=== PATIENT | male | born 1960 | race Caucasian/White ===

== ENCOUNTER 2024-07-02 08:15 | Outpatient (CLI) | payer BC, SELFPAY ==
--- OUTSIDE RECORDS SUMMARY | 2024-07-02 08:21 | XMS_ITS | Encounter Summary ---
Author Organization [facility] Address [address] [place] [address]. [place] [address] Care Team Providers Care Tool Keeper Name Role Phone Wilebr Vidales MD Primary Care Provider + Wilber Vidales MD Unavailable [phone] Stephie Mahoney MD Unavailable [phone] Federica Foster RN Unavailable [phone] Unavailable [phone] Stephie Mahoney MD Unavailable [phone] Olga Garcia RN Unavailable [phone] Junior Chavira MD Unavailable [phone] Encounter Details Date Type Department Care Team (Late st Contact Info) Description 06/10/2024 Medical Correspondence [facility] Health Information Management [address] [facility] [address] [place] [address] Scan, Non-Provider Social History Tobacco Use Types Packs/Day Years Used Date Smoking Tobacco: Never Smokeless Tobacco: Never Alcohol Use Standard Drinks/Week Comments Yes 0 (1 standard drink = 0.6 oz pur e alcohol) 2/week Social Connection and Isolat ion Panel [NHANES] Answer Date Recorded In a typical week, how many times do you talk on the phone with family, friends, or neighbors? Twice a week 07/12/2023 How often do you get togethe r with friends or relatives? Once a week 07/12/2023 How often do you attend chur ch or mosque services? More than 4 times per year 07/12/2023 Do you belong to any clubs o r organizations such as moravian groups, unions, fraternal or athletic groups, or school groups? Yes 07/12/2023 How often do you attend meet ings of the clubs or organizations you belong to? More than 4 times per year 07/12/2023 Are you , , di vorced, , never , or living with a partner? 07/12/2023 AUDIT-C Answer Date Recorded Q1: How often do you have a drink containing alc ohol? 2-4 times a month 07/12/2023 Q2: How many drinks containi ng alcohol do you have on a typical day when you are drinking? 1 or 2 07/12/2023 Q3: How often do you have si x or more drinks on one occasion? Less than monthly 07/12/2023 PHQ-2 Answer Date Recorded PHQ-2 Score 0 11/23/2023 [facility] - Occupational Stress Questionnaire Answer Date Recorded Do you feel stress - tense, restless, nervous, or anxious, or unable to sleep at night because your mind is troubled all the time - these days? Patient declined 07/12/2023 Exercise Vital Sign Answer Date Recorde d On average, how many days pe r week do you engage in moderate to strenuous exercise (like a brisk walk)? 3 days 07/12/2023 On average, how many minutes do you engage in exercise at this level? 30 min 07/12/2023 Adolescent Education Answer Date Record ed Getting School Help Needed Not on file 05/14 Food Insecurity Answer Date Recorded Within the past 12 months, d id you worry that your food would run out before you got money to buy more? No 07/12/2023 Within the past 12 months, d id the food you bought just not last and you didn? t have money to get more? No 07/12/2023 Housing Stability Answer Date Recorded Do you have housing? (Housin g is defined as stable permanent housing and does not include staying ouside in a car, in a tent, in an abandoned building, in an overnight longterm, or couch-surfing.) Yes 07/12/2023 Are you worried about losing your housing? No 07/12/2023 Financial Resource Strain Answer Date R ecorded Within the past 12 months, h ave you or your family members you live with been unable to get utilities (heat, electricity) when it was really needed? No 07/12/2023 Transportation Needs Answer Date Record ed Within the past 12 months, h as lack of transportation kept you from medical appointments, getting your medicines, non-medical meetings or appointments, work, or from getting things that you need? No 07/12/2023 Interpersonal Safety Answer Date Record ed Do you feel physically and e motionally safe where you currently live? Yes 07/19/2023 Within the past 12 months, h ave you been hit, slapped, kicked or otherwise physically hurt by someone? No 07/19/2023 Within the past 12 months, h ave you been humiliated or emotionally abused in other ways by your partner or ex-partner? No 07/19/2023 Education Answer Date Recorded What is the highest level of school you have completed or the highest degree you have received? Bachelor's degree (e.g., BA, AB, BS) 03/17/2019 Sex and Gender Information Value Date Recorded Sex Assigned at Male 06/07/2019 7:29 AM CDT 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 CLAY CARMAN Gender Identity Male 03/03/2019 9:24 PM CDT Sexual Orientation Straight 03/03/2019 9: 24 PM CDT documented as of this encounter Plan of Treatment Upcoming Encounters Date Type Department Care Team (Late st Contact Info) Description 07/11/2024 8:00 AM CLAY CARMAN Office Visit [facility] Heart [facility] [address] [place] [phone] Junior Chavira MD [address] [place] [id number] 07/30/2024 7:30 AM CLAY CARMAN Appointment [facility] [address] [place] [phone] Candy Trivedi MD [address] [place] [address] 08/07/2024 1:30 PM CLAY CARMAN Virtual Visit [facility] Diabetes Education [address] [phone] Stephie Mahoney MD [address] [place] [address] [phone] Federica Foster RN [address] [place] [address] [phone] 01/09/2025 8:00 AM CDT Lab [facility] [address] [place] [phone] 01/16/2025 3:30 PM CDT Virtual Visit [facility] End[facility]inology [facility] [address] [phone] Stephie Mahoney MD [address] [place] [address] [phone] 06/05/2025 12:30 PM CDT Office Visit [facility] Endocrinology [address] [phone] tSephie Mahoney MD [address] [place] [address] [phone] documented as of this encounter Visit Diagnoses Not on filedocumented in this encounter Care Teams Tool Keeper Relationship Specialty [place] [address] [place] [address] PCP - General Family Practice 11/21/16 [place] [address] [place] [address] Assigned PCP 01/30/21 Stephie Mahoney MD [address] [place] [address] Endocrinology, Diabetes, and Metabolism 04/22/21 Federica Foster RN [address] [place] [address] Aircraft Maintenance Supervisor Diabetes Education 04/22/[address] [place] [address] Aircraft Maintenance Supervisor Nutrition 04/22/21 Stephie Mahoney MD [address] [place] [address] Assigned Endocrinology Provider 05/08/21 Olga Garcia, RN Specialty Scalder INTERNAL MEDICINE - ENDOCRINOLOGY, DIABETES & METABOLISM 09/29/22 Junior Chavira MD [address] [place], [place] [phone] Cardiovascular Disease 05/29/24 documented as of this encounter
--- OUTSIDE RECORDS SUMMARY | 2024-07-02 08:21 | XMS_ITS | Encounter Summary ---
Author Organization [facility] Address [address] [place] [address]. [place] [address] Care Team Providers Care Outside Sales Consultant Name Role Phone Wilber Vidales MD Primary Care Provider + Wilber Vidales MD Unavailable [phone] Stephie Mahoney MD Unavailable [phone] Federica Foster RN Unavailable [phone] Unavailable [phone] Stephie Mahoney MD Unavailable [phone] Olga Garcia RN Unavailable [phone] Junior Chavira MD Unavailable [phone] Encounter Details Date Type Department Care Team (Latest Contact Info) Description 06/10/2024 Travel Social History Tobacco Use Types Packs/Day Years [...] week 07/12/2023 How often do you attend [facility] or restorationism services? More than 4 times per year 07/12/2023 Do you belong to any clubs o r organizations such as baptism groups, unions, fraternal or athletic groups, or [...] Answer Date Recorded PHQ-2 Score 0 11/23/2023 [facility] - Occupational Stress Questionnaire Answer Date Recorded [...] in an abandoned building, in an overnight usp, or couch-surfing.) Yes 07/12/2023 Are you worried [...] AM CDT 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 RESIDENT CARE ASSISTANT Gender Identity Male 03/03/2019 9:24 PM CDT Sexual Orientation Straight 03/03/2019 9: 24 PM CDT documented as of this encounter Plan of Treatment Upcoming Encounters Date Type Department Care Team (Late st Contact Info) Description 07/11/2024 8:00 AM RESIDENT CARE ASSISTANT Office Visit [facility] [place] [address] [place] [address] [address] [place] [phone] Junior Chavira MD [address] [place] [id number] 07/30/2024 7:30 AM RESIDENT CARE ASSISTANT Appointment [facility] Specialty Care [address] [place] [address] [address] [place] [phone] Candy Trivedi MD [address] [place] [id number] 08/07/2024 1:30 PM RESIDENT CARE ASSISTANT Virtual Visit [facility] Diabetes Education [address] [phone] Stephie Mahoney MD [address] [place] [address] Federica Foster RN [address] [place] [address] 01/09/2025 8:00 AM CDT Lab [facility] [address] [place] [phone] 01/16/2025 3:30 PM CDT Virtual Visit [facility] Endocrinology [facility] [address] [phone] Stephie Mahoney MD [address] [place] [address] 06/05/2025 12:30 PM CDT Office Visit [facility]ology [facility] [address] [phone] Stephie Mahoney MD [address] [place] [address] [phone] documented as of this encounter Visit Diagnoses Not on filedocumented in this encounter Care Teams Outside Sales Consultant Relationship Specialty [place] [address] [place] [place] [address] PCP - General Family Practice 11/21/16 [place] [address] [address] [address] Assigned PCP 01/30/21 Stephie Mahoney MD [address] [phone] Endocrinology, Diabetes, and Metabolism 04/22/21 Federica Foster, RN [address] [place], [place] 540[address] Telecommunications Sales Representative Diabetes Education 04/22/[address] [place] [address] [phone] Telecommunications Sales Representative Nutrition 04/22/21 Stephie Mahoney MD [address] 512255 Assigned Endocrinology Provider 05/08/21 Olga Garcia, RN Specialty Application Integration Engineer INTERNAL MEDICINE - ENDOCRINOLOGY, DIABETES & METABOLISM 09/29/22 Junior Chavira MD [address] [place], [place] [phone] Cardiovascular Disease 05/29/24 documented as of this encounter
--- OUTSIDE RECORDS SUMMARY | 2024-07-02 08:21 | XMS_ITS | Clinical Summary ---
Author Organization [facility] Address [address] [place] [address]. [place] [address] Care Team Providers Care Certified Prosthetist/Orthotist Name Role Phone Didier Maharaj MD Primary Care Provider + Didier Maharaj MD Unavailable [phone] Stephie Mahoney MD Unavailable [phone] Federica Foster RN Unavailable [phone] Unavailable [phone] Stephie Mahoney MD Unavailable [phone] Olga Garcia RN Unavailable [phone] Junior Chavira MD Unavailable [phone] Allergies Active Allergy Reactions Criticality Noted Date Comments Carbamazepine Rash High 02/04/2007 Phenobarbital High 08/22/2001 Phenytoin Other (See Comments),Rash High 10/05/1999 high fever Procarbazine Rash Low 11/21/2016 Sulfa Antibiotics Rash Low 11/21/2016 Valproic Acid Rash High 08/22/2001 Medications Multiple Vitamins-Mineral s (MENS MULTI VITAMIN & MINERAL PO) Take 1 tablet by mouth daily Active Psyllium (METAMUCIL FIBER PO) Take 1 dose. by mouth daily Active melatonin 5 MG tablet Active zinc gluconate 50 MG tablet Take 50 mg by mouth daily 06/01/2 020 Active insulin syringe-needle U-100 (30G X 1/2 0.3 ML) 30G X 1/2 0.3 ML miscellaneousInd ications:Type 1 diabetes mellitus with hyperglycemia (H) Use in the event of pump failure and need to administer manual injection. 10 each 11 Active LAMOTRIGINE PO Take 300 mg by mouth 2 times daily Active vitamin C (ASCORBIC ACID) 1000 MG TABS Take 1 tablet by mouth daily 021 Active cholecalciferol (VITAMIN D3) 125 mcg (5000 units) capsule Take by mouth daily Active acetone urine (KETOSTIX) test stripIndications :Type 1 diabetes mellitus with hyperglycemia (H) Use to check urine ketones in the event of pump failure or unexplained blood glucoses over 250 and not resolving. 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) Take 0.5-1 tablets (100-200 mg) by mouth daily as needed (daytime sleepiness) 90 tablet 1 023 Active apixaban ANTICOAGULANT (ELIQUIS ANTICOAGULANT) 5 MG tabletIndication s:Paroxysmal atrial fibrillation (H) Take 1 tablet (5 mg) by mouth 2 times daily 180 tablet 3 023 Active sildenafil (VIAGRA) 100 MG tabletIndication s:Vasculogenic erectile dysfunction, unspecified vasculogenic erectile dysfunction type Take 1 tablet (100 mg) by mouth daily as needed (30 minutes prior to sexual activity) 12 tablet 11 023 Active atorvastatin (LIPITOR) 40 MG tabletIndication s:Hyperlipidemia LDL goal <100 Take 1 tablet (40 mg) by mouth at bedtime 90 tablet 3 024 Active carvedilol (COREG) 12.5 MG tabletIndication s:Benign essential hypertension Take 1 tablet (12.5 mg) by mouth 2 times daily (with meals) 180 tablet 3 024 Active insulin aspart (NOVOLOG VIAL) 100 UNITS/ML vialIndications: Type 1 diabetes mellitus with hyperglycemia (H) Uses about 80 units per day 80 mL 3 024 Active metFORMIN (GLUCOPHAGE) 500 MG tabletIndication s:Elevated glucose Take 1 tablet (500 mg) by mouth daily (with dinner) 90 tablet 3 Active Additional Information Patient not taking.Reported on 06/16/2024 insulin glargine (LANTUS PEN) 100 UNIT/ML penIndications:T ype 1 diabetes mellitus with hyperglycemia (H) 20 units if pod fails 3 mL Active Continuous Glucose Sensor (DEXCOM G7 SENSOR) MISCIndications: Type 1 diabetes mellitus with hyperglycemia (H) Change every 10 days. 9 each 5 024 Active Insulin Disposable Pump (OMNIPOD 5 G7 PODS, GEN 5,) MISCIndications: Type 1 diabetes mellitus with hyperglycemia (H) 1 pod See Admin Instructions. Change every 3 days 30 each 3 024 Active ezetimibe (ZETIA) 10 MG tabletIndication s:Type 1 diabetes mellitus with hyperglycemia (H) Take 1 tablet (10 mg) by mouth daily. 90 tablet 4 024 Active eszopiclone (LUNESTA) 3 MG tablet ESZOPICLONE 3 MG TABS 023 Active tiZANidine (ZANAFLEX) 2 MG tablet TAKE 1-2 TABLETS BY MOUTH EVERY NIGHT AT BEDTIME NEEDED DIRECTED FOR LOW BACK PAIN* 024 Active lisinopril (ZESTRIL) 30 MG tabletIndication s:Benign essential hypertension Take 1 tablet (30 mg) by mouth daily. 90 tablet 1 024 Active lisinopril (ZESTRIL) 20 MG tabletIndication s:Type 1 diabetes mellitus without complication (H) Take 1 tablet (20 mg) by mouth daily 90 tablet 3 024 2023 Discontinued ezetimibe (ZETIA) 10 MG tabletIndication s:Type 1 diabetes mellitus with hyperglycemia (H) Take 1 tablet (10 mg) by mouth daily. 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 1 09/10/2018 Status post coronary angiogram 06/18/2019 Abnormal findings diagnostic imaging of heart and coronary circulation 06/12/2019 Overview (06/12/2019): Added automatically from request for surgery [id number] ESCALONA (dyspnea on exertion) 04/28/2019 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, without status epilepticus 11/21/2016 JEFERSON (obstructive sleep apnea) 11/21/2016 Bilateral carotid artery stenosis 11/21/2016 Chronic lower back pain 09/03/2014 Resolved Problems Problem Noted Date Diagnosed Date Resolved Date Type 2 diabetes mellitus wit h other circulatory complication, without long-term current use of insulin 07/19/2023 06/16/2024 Infection due to 2018 novel coronavirus 03/10/2022 06/16/2024 Acute pain of right knee 06/14/2020 Aortic valve stenosis 07/04/20192018 Chronic systolic heart failure 04/28/2019 07/01/2020 Overview (04/28/2019): Grade 4/6 03/17/19 Lateral epicondylitis of left elbow 03/28/2019 05/20/2019 Elbow pain, left 03/28/2019 05/20/2019 Nonrheumatic aortic valve stenosis 03/08/2018 07/29/2019 Central sleep apnea 11/21/2016 11/22/19 17 Brain tumor 08/20/1998 07/10/2022 Encounters Date Type Department Care Team Description 06/17/2024 Orders Only [facility] [id number] [place] [phone] Shantel Walker MD 06/16/2024 1:30 PM CDT Office Visit [facility] [id number] [place] [phone] Shantel Walker MD Benign essential hypertension (Primary Dx); Paroxysmal atrial fibrillation (H); 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, 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); Type 1 diabetes mellitus with hyperglycemia (H) 06/16/2024 Travel 06/16/2024 MyC Medical Advice [facility] [address] [place] [phone] Didier Maharaj MD 06/11/2024 Telephone [facility] Endocrinology [address] [phone] Stephie Mahoney MD 06/10/2024 8:15 AM CDT Lab [facility] [address] [place] [phone] Type 1 diabetes mellitus with hyperglycemia (H) 06/10/2024 Medical Correspondence [facility] Information Management [address] [place] [address] [address] [place] [phone] Scan, Non-Provider 06/10/2024 Telephone [facility] Heart [address] [place] [phone] Janee Cota, RN AC hold form (Procedure--right L2 NRI) 06/10/2024 Telephone [facility] Endocrinology [address] [phone] Stephie Mahoney MD 06/10/2024 Travel 06/10/2024 MyC Medical Advice [facility] Endocrinology [address] [phone] Olga Garcia RN 06/09/2024 [facility] [place] [address] [facility] [address] [place] [phone] Janee Cota RN AC hold 06/02/2024 [facility] Endocrinology [address] [phone] Stephie Mahoney MD Medication Question 06/02/2024 MyC Medical Advice [facility] Heart [place] [address] [facility] [address] [place] [phone] Valerie Henderson 05/30/2024 1:00 PM CDT Office Visit [facility] Endocrinology Clinic [address] [phone] Stephie Mahoney MD Type 1 diabetes mellitus with hyperglycemia (H) (Primary Dx) 05/30/2024 Travel 05/29/2024 Telephone [facility] Heart [facility] [address] [facility] [address] [place] [phone] Candy Trivedi MD Appointment (Referral per Shikha) 05/29/2024 MyC Medical Advice [facility] [address] [facility] [address] [place] [phone] Damaris Tripathi 05/27/2024 Telephone [facility] Endocrinology Clinic [address] [phone] Stephie Mahoney MD 05/27/2024 Telephone [facility]ocrinology Clinic [address] [phone] Rebecca Harvey, RN 05/27/2024 Telephone [facility] Endocrinology Clinic [address] [phone] Rebecca Harvey, RN 05/24/2024 11:10 AM CDT - 05/24/2024 1:29 PM CDT Emergency [facility] Emergency Dept [address] [place] [phone] Stanton Milian MD Near syncope; Hyponatremia Discharge Disposition: Home or Self Care 05/24/2024 Travel 05/23/2024 MyC Medical Advice [facility] Endocrinology Clinic [address] [phone] Rebecca Harvey, RN 04/25/2024 MyC Medical Advice [facility] Endocrinology Clinic [address] [phone] Dinah Velazquez 04/25/2024 Telephone [facility]inology [facility] [address] [phone] Stephie Mahoney MD Appointment (Follow-up in May ) 04/25/2024 Telephone [facility] Endocrinology Clinic [address] [phone] Stephie Mahoney MD 04/18/2024 7:30 AM CDT Lab [facility] [address] [place] [address] Hyperlipidemia LDL goal <100; Benign essential hypertension; Type 1 diabetes mellitus with hyperglycemia (H); Type 1 diabetes mellitus without complication (H); Elevated glucose 04/18/2024 Travel from Last 3 Months Immunizations Name Administration Dates Next Due Flu, Unspecified 07/16/1995 Influenza (intradermal) 06/07/2012 Influenza Vaccine 18-64 (Flublok) 07/01/2020 TDAP Vaccine (Adacel) 03/08/2018 Td (Adult), Adsorbed 07/16/1995 Zoster vaccine, live 06/04/2017 Family History Medical History Relation Comments Thyroid Disease Brother Lupus Daughter Bladder Cancer Father Other Cancer Father Bladder cancer Cerebrovascular Disease Maternal Grandmother Hypertension Mother Thyroid Disease Mother Breast Cancer Other Lung Cancer Paternal Grandfather Heart Disease Paternal Grandmother Diabetes Sister 1 Seizure Disorder Sister 1 Thyroid Disease Sister 1 Thyroid Disease Sister 2 Relation Status Comments Brother Daughter Father Alive Maternal Grandfather Maternal Grandmother Mother Alive Other Paternal Grandfather Paternal Grandmother Sister 1 Sister 2 Social History Tobacco Use Types Packs/Day Years Used Date Smoking Tobacco: Never Smokeless Tobacco: Never Tobacco Cessation:Counseling Given: Not Answered Alcohol Use Standard Drinks/Week Comments Yes 0 [...] week 07/12/2023 How often do you attend [facility] or sabianism services? More than 4 times per year 07/12/2023 Do you belong to any clubs o r organizations such as jewish groups, unions, fraternal or athletic groups, or [...] Answer Date Recorded PHQ-2 Score 0 11/23/2023 [facility] - Occupational Stress Questionnaire Answer [...] Answer Date Recorded Do you have housing? (Nori g is defined as stable permanent housing and does not include staying ouside in a car, in a tent, in an abandoned building, in an overnight residential, or couch-surfing.) Yes 07/12/2023 Are you worried [...] motionally safe where you currently live? Yes 06/16/2024 Within the past 12 months, h ave you been hit, slapped, kicked or otherwise physically hurt by someone? No 06/16/2024 Within the past 12 months, h ave you been humiliated or emotionally abused in other ways by your partner or ex-partner? No 06/16/2024 Education Answer Date Recorded What is the highest level of school you have completed or the highest degree you have received? Bachelor's degree (e.g., BA, AB, BS) 03/17/2019 Sex and Gender Information Value Date Recorded Sex Assigned at Male 06/07/2019 7:29 AM CDT 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 [facility] Gender Identity Male 03/03/2019 9:24 PM CDT Sexual Orientation Straight 03/03/2019 9: 24 PM CDT Last Filed Vital Signs Vital Sign Reading Time Taken Comments Blood Pressure 154/96 06/16/2024 1:00 PM CDT Pulse 85 06/16/2024 1:00 PM CDT Temperature 36.7 ??C (98 ??F) 06/16/2024 1:00 PM CDT Respiratory Rate 16 06/16/2024 1:00 PM CDT Oxygen Saturation 98% 06/16/2024 1:00 PM CDT Inhaled Oxygen Concentration - - Weight 83.9 kg (185 lb) 06/16/2024 1:00 PM CDT Height 176.5 cm (5' 9.5) 06/16/2024 1:00 PM CDT Body Mass Index 26.93 06/16/2024 1:00 PM CDT Plan of Treatment Upcoming Encounters Date Type Department Care Team (Late st Contact Info) Description 07/11/2024 8:00 AM [employer] [facility] [facility] Office Visit [facility] Heart [facility] [address] [place] [phone] Junior Chavira MD [address] [place] [phone] 07/30/2024 7:30 AM [facility] Appointment [facility] [address] [place] [phone] Candy Trivedi MD [address] [place] [address] [place] [phone] 08/07/2024 1:30 PM [facility] Virtual Visit [facility] Diabetes Education [address] [phone] Stephie Mahoney MD [address] [place] [address] Federica Foster RN [address] [place], [place] [phone] 01/09/2025 8:00 AM CDT Lab [facility] [address] [place] [phone] 01/16/2025 3:30 PM CDT Virtual Visit [facility] Endocrinology Clinic [address] [phone] Stephie Mahoney MD [address] [place] [address] 06/05/2025 12:30 PM CDT Office Visit [facility] Endocrinology Clinic [address] [phone] Stephie Mahoney MD [address] [place] [phone] Health Maintenance Due Date Last Done Comments CT COLONOGRAPHY 1962 FIT 1962 FLEX SIG 1962 sDNA (Cologuard) 1962 ZOSTER IMMUNIZATION (3 of 3) 03/21/2021 01/24/2021 (Declined), 06/04/2017 RSV VACCINE (1 - Risk 60-74 years 1-dose series) 2022 DIABETIC FOOT EXAM 07/10/2023 07/10/2022, 04/20/2021 COVID-19 Vaccine ( season) 2024 INFLUENZA VACCINE (#1) 2024 , 06/07/2012, 07/16/1995 EYE EXAM 06/18/2024 06/18/2023, 05/21, 05/19/2022, Additional history exists A1C 07/19/2024 04/18/2024, 06/22, 10/13/2022, Additional history exists ANNUAL REVIEW OF HM ORDERS 07/19/2024 07/19/2023, YEARLY PREVENTIVE VISIT 07/19/2024 07/19/20 23, 07/10/2022, 06/27/2021, Additional history exists LIPID 04/18/2025 04/18/2024, 06/22, 07/10/2022, Additional history exists MICROALBUMIN 04/18/2025 04/18/2024, 04/20, 09/01/2021, Additional history exists BMP 06/16/2025 06/16/2024, 05/21, 05/24/2024, Additional history exists DTAP/TDAP/TD IMMUNIZATION (2 - Td or Tdap) 03/08/2028 03/08/2018, 07/16/1995 COLONOSCOPY 05/14/2028 05/14/2023, 04/21, 08/20/2012 COLORECTAL CANCER SCREENING 05/14/2028 ADVANCE CARE PLANNING 07/19/2028 07/19/2023, 018 HEPATITIS C SCREENING Completed 11/21/2016 Pneumococcal Vaccine: Pediatrics (0 to 5 Years) and At-Risk Patients (6 to 64 Years) Addressed 01/24/2021 (Declined) Overridden with th e intention of not completing the topic PHQ-2 (once per calendar year) Completed 11/23/2023, 03/30/2023, 09/29/2022, Additional history exists HIV SCREENING Discontinued HPV IMMUNIZATION Aged Out No longer e ligible based on patient's age to complete this topic MENINGITIS IMMUNIZATION Aged Out No l onger eligible based on patient's age to complete this topic RSV MONOCLONAL ANTIBODY Aged Out No l onger eligible based on patient's age to complete this topic URINE DRUG SCREEN Discontinued Medical Devices Implanted Type Area Railroad Wheels And Axles Inspector Device Identifier Shelf Expiration Date Model / Serial / Lot Lead Artirial Pacing Temporary 53cm [id number] Implanted:Qty : 1 on 07/04/2019 by Ej Haines MD at [facility] Leads [employer] [id number] / / Imp Kit Suture Cor-Knot Mini 4x14mm [id number] Implanted:Qty : 1 on 07/04/2019 by Ej Haines MD at [facility] Metallic Hardware/Anc hor [employer] [id number] / / Valve Aortic Perimount Magna-Ease Bioprosth 23mm [id number] Implanted:Qty : 1 on 07/04/2019 by Ej Haines MD at [facility] Valve N/A: Heart [employer] 01/29/2023 [id number] / [id number] / Device Burgess Endo Cor Knot Quick Load Reload [id number] Implanted:Qty : 1 on 07/04/2019 by Ej Haines MD at [facility] Wire [employer] [id number] / / Procedures Procedure Name Priority Date/Time Associated Diagnosis Comments TSH Routine 06/16/2024 2:16 PM CDT Benign essential hypertension T4 FREE Routine 06/16/2024 2:16 PM CDT Benign essential hypertension N TERMINAL PRO BNP OUTPATIENT Routine 06/16/2024 2:16 PM CDT Benign essential hypertension BASIC METABOLIC PANEL Routine 06/16/2024 2:16 PM CDT Benign essential hypertension EKG 12-LEAD COMPLETE W/READ - CLINICS Routine 06/16/2024 Benign essential hypertension OSMOLALITY Routine 06/10/2024 8:22 AM CDT Type 1 diabetes mellitus with hyperglycemia (H) BASIC METABOLIC PANEL Routine 06/10/2024 8:22 AM CDT Type 1 diabetes mellitus with hyperglycemia (H) CORTISOL Routine 06/10/2024 8:22 AM CDT Type 1 diabetes mellitus with hyperglycemia (H) CBC WITH PLATELETS & DIFFERENTIAL STAT 05/24/2024 11:28 AM CDT EXTRA RED TOP TUBE STAT 05/24/2024 11 :28 AM CDT EXTRA BLUE TOP TUBE STAT 05/24/2024 1 1:28 AM CDT CBC WITH PLATELETS AND DIFFERENTIAL STAT 05/24/2024 11:28 AM CDT EXTRA TUBE STAT 05/24/2024 11:28 AM CDT BASIC METABOLIC PANEL STAT 05/24/2024 11:28 AM CDT GLUCOSE BY METER STAT 05/24/2024 11:2 7 AM CDT EKG 12-LEAD, TRACING ONLY STAT 05/24/2024 11:19 AM CDT ALBUMIN RANDOM URINE QUANTITATIVE Routine 04/18/2024 7:45 AM CDT Hyperlipidemia LDL goal <100 Benign essential hypertension Type 1 diabetes mellitus with hyperglycemia (H) Type 1 diabetes mellitus without complication (H) Elevated glucose TISSUE TRANSGLUTAMINASE MIKE IGA AND IGG Routine 04/18/2024 7:42 AM CDT Hyperlipidemia LDL goal <100 Benign essential hypertension Type 1 diabetes mellitus with hyperglycemia (H) Type 1 diabetes mellitus without complication (H) Elevated glucose HEMOGLOBIN A1C Routine 04/18/2024 7:42 AM CDT Hyperlipidemia LDL goal <100 Benign essential hypertension Type 1 diabetes mellitus with hyperglycemia (H) Type 1 diabetes mellitus without complication (H) Elevated glucose BASIC METABOLIC PANEL Routine 04/18/2024 7:42 AM CDT Hyperlipidemia LDL goal <100 Benign essential hypertension Type 1 diabetes mellitus with hyperglycemia (H) Type 1 diabetes mellitus without complication (H) Elevated glucose LIPID PROFILE Routine 04/18/2024 7:42 AM CDT Hyperlipidemia LDL goal <100 Benign essential hypertension Type 1 diabetes mellitus with hyperglycemia (H) Type 1 diabetes mellitus without complication (H) Elevated glucose TSH Routine 04/18/2024 7:42 AM CDT Hyperlipidemia LDL goal <100 Benign essential hypertension Type 1 diabetes mellitus with hyperglycemia (H) Type 1 diabetes mellitus without complication (H) Elevated glucose 25 HYDROXYVITAMIN D2 & D3 Routine 04/18/2024 7:42 AM CDT Hyperlipidemia LDL goal <100 Benign essential hypertension Type 1 diabetes mellitus with hyperglycemia (H) Type 1 diabetes mellitus without complication (H) Elevated glucose EYE EXAM - HIM SCAN Routine 06/18/2023 COLONOSCOPY Routine 05/14/2023 8:14 AM CDT HEPATITIS C ANTIBODY Routine 11/21/2016 7:44 AM CDT Need for hepatitis C screening test from Last 3 Months or Most Recently Relevant to Health Maintenance Results * TSH (06/16/2024 2:16 PM CDT) Only the most recent of2 resultswithin the time period is included. TSH 2.21 0.30 - 4.20 uIU/mL 06/17/2024 11:53 AM CDT UR LABORATORY Blood BLOOD SPECIMEN / Unknown Venipuncture / Unknown 06/16/2024 2:16 PM CDT 06/16/2024 2:16 PM CDT us Shantel Walker MD LAB - BLOOD ORDERABLES Fi nal Result UR LABORATORY [facility] [address] [place] [address], Room [address] * T4, free (06/16/2024 2:16 PM CDT) Free T4 1.39 0.90 - 1.70 ng/dL 06/17/2024 11:53 AM CDT UR LABORATORY Blood BLOOD SPECIMEN / Unknown Venipuncture / Unknown 06/16/2024 2:16 PM CDT 06/16/2024 2:16 PM CDT us Shantel Walker MD LAB - BLOOD ORDERABLES Fi nal Result Performing Organization Address City/[facility]/ZIP Co de Phone Number UR LABORATORY [facility] [address] [place] [address], [address] * BNP-N terminal pro (06/16/2024 2:16 PM CDT) [facility] N Terminal Pro BNP Outpatient 96 0 - 900 pg/mL 06/17/2024 11:53 AM CDT UR LABORATORY Comment: Reference range shown and results flagged as abnormal are for the outpatient, non acute settings. Establishing a baseline value for each individual patient is useful for follow-up. Suggested inpatient cut points for confirming diagnosis of CHF in an acute setting are: >450 pg/mL (age 18 to less than 50) >900 pg/mL (age 50 to less than 75) >1800 pg/mL (75 yrs and older) An inpatient or emergency department NT-proPBNP <300 pg/mL effectively rules out acute CHF, with 99% negative predictive value. Blood BLOOD SPECIMEN / Unknown Venipuncture / Unknown 06/16/2024 2:16 PM CDT 06/16/2024 2:16 PM CDT us Shantel Walker MD LAB - BLOOD ORDERABLES Fi nal Result UR LABORATORY [facility] Acute Care Lab [address] [facility], [address] [place] [phone], [facility] * (ABNORMAL) Basic metabolic panel (Ca, Cl, CO2, Creat, Gluc, K, Na, BUN) (06/16/2024 2:16 PM CDT) Only the most recent of4 resultswithin the time period is included. Sodium 135 135 - 145 mmol/L 06/17/2024 11:53 AM CDT UR LABORATORY Potassium 4.3 3.4 - 5.3 mmol/L 06/17/2024 11:53 AM CDT UR LAB[facility] Chloride 94(L) 98 - 107 mmol/L 06/17/2024 11:53 AM CDT UR LAB[facility]ORY Carbon Dioxide (CO2) 28 22 - 29 mmol/L 06/17/2024 11:53 AM CDT UR LAB[facility] Anion Gap 13 7 - 15 mmol/L 06/17/2024 11:53 AM CDT UR LAB[facility]ORY Urea Nitrogen 18.0 8.0 - 23.0 mg/dL 06/17/2024 11:53 AM CDT UR LAB[facility]ORY Creatinine 1.02 0.67 - 1.17 mg/dL 06/17/2024 11:53 AM CDT UR LAB[facility]ORY GFR Estimate 84 >60 mL/min/1.7 3m2 06/17/2024 11:53 AM CDT UR LAB[facility]ATORY Comment:eGFR calculated us2020 CKD-EPI equation. Calcium 9.2 8.8 - 10.4 mg/dL 06/17/2024 11:53 AM CDT UR LAB[facility]ATORY Comment:Reference intervals for this test were updated on 03/04/2024 to reflect our healthy population more accurately. There may be differences in the flagging of prior results with similar values performed with this method. Those prior results can be interpreted in the context of the updated reference intervals. Glucose 79 70 - 99 mg/dL 06/17/2024 11:53 AM CDT [facility] Blood BLOOD SPECIMEN / Unknown Venipuncture / Unknown 06/16/2024 2:16 PM CDT 06/16/2024 2:16 PM CDT us Shantel Walker MD LAB - BLOOD ORDERABLES Fi nal Result UR LABORATORY [facility] Acute Care Lab [address] [place] [phone], [facility] * EKG 12-lead complete w/read - Clinics (06/16/2024) us Shantel Walker MD ECG ORDERABLES Final Res ult * Osmolality (06/10/2024 8:22 AM CDT) Osmolality Blood 291 280 - 301 mmol/kg 06/10/2024 3:57 PM CDT [facility] Blood BLOOD SPECIMEN / Unknown Venipuncture / Unknown 06/10/2024 8:22 AM CDT 06/10/2024 8:25 AM CDT Narrative [facility] - 06/10/2024 3:57 PM CDT Greater than 385 mmol/kg relates to stupor in hyperglycemia Greater than 400 mmol/kg can relate to seizures Greater than 420 mmol/kg can be lethal Serum Osmalar Gap: Normal <10 Larger suggest unmeasured substances present in serum (ethanol, methanol, isopropanol, mannitol, ethylene glycol). us Stephie Mahoney MD LAB - BLOOD ORDERABLES Final Result [facility] Core Lab [address], [address] [place] [address], [facility] * Cortisol (06/10/2024 8:22 AM CDT) Cortisol 20.3 ug/dL 06/10/2024 4:16 PM CDT [facility] Comment: 6 months and older: 6 to 10 AM Cortisol Reference Range: ??4-22 ug/dL 4 to 8 PM Cortisol Reference Range: ??3-17 ug/dL Blood BLOOD SPECIMEN / Unknown Venipuncture / Unknown 06/10/2024 8:22 AM CDT 06/10/2024 8:25 AM CDT us Stephie Mahoney MD LAB - BLOOD ORDERABLES Final Result LABORATORY [facility] Core Lab [address], [address] [place] [address] * Extra Red Top Tube (05/24/2024 11:28 AM CDT) Hold Specimen [facility] 05/24/2024 12:46 PM CDT [facility] LAB[facility] Blood VENOUS LINE / Unknown Venipuncture / Unknown 05/24/2024 11:28 AM CDT 05/24/2024 11:32 AM CDT us Stanton Milian MD LAB - BLOOD ORDERABLES Final Res ult LABORATORY [facility] Acute Care Lab [address] Lab (1st floor, no room number) [place] [address] * Extra Blue Top Tube (05/24/2024 11:28 AM CDT) Hold Specimen [facility] 05/24/2024 12:46 PM CDT [facility] LABORATORY Blood VENOUS LINE / Unknown Venipuncture / Unknown 05/24/2024 11:28 AM CDT 05/24/2024 11:32 AM CDT us Stanton Milian MD LAB - BLOOD ORDERABLES Final Res ult [facility] Acute Care Lab [address] Lab (1st floor, no room number) [place] [phone] * (ABNORMAL) CBC with platelets and differential (05/24/2024 11:28 AM CDT) WBC Count 4.3 4.0 - 11.0 10e3/uL 05/24/2024 11:35 AM CDT [facility] LAB[facility]AT[facility] RBC Count 4.55 4.40 - 5.90 10e6/uL 05/24/2024 11:35 AM CDT [facility] LAB[facility]ATORY Hemoglobin 13.9 13.3 - 17.7 g/dL 05/24/2024 11:35 AM CDT [facility] LAB[facility]ORY Hematocrit 39.5(L) 40.0 - 53.0 % 05/24/2024 11:35 AM CDT [facility] LAB[facility] MCV 87 78 - 100 fL 05/24/2024 11:35 AM CDT [facility] LAB[facility] MCH 30.5 26.5 - 33.0 pg 05/24/2024 11:35 AM CDT [facility] LAB[facility]ATORY MCHC 35.2 31.5 - 36.5 g/dL 05/24/2024 11:35 AM CDT [facility] LAB[facility] RDW 11.7 10.0 - 15.0 % 05/24/2024 11:35 AM CDT [facility] Platelet Count 142(L) 150 - 450 10e3/uL 05/24/2024 11:35 AM CDT [facility] % Neutrophils 48 % 05/24/2024 11:35 AM CDT [facility] % Lymphocytes 28 % 05/24/2024 11:35 AM CDT [facility] % Monocytes 10 % 05/24/2024 11:35 AM CDT [facility] % Eosinophils 14 % 05/24/2024 11:35 AM CDT [facility] % Basophils 1 % 05/24/2024 11:35 AM CDT [facility] % Immature Granulocytes 0 % 05/24/2024 11:35 AM CDT [facility] LAB[facility]ATORY NRBCs per 100 WBC 0 <1 /100 024 11:35 AM CDT [facility] LAB[facility] Absolute Neutrophils 2.1 1.6 - 8.3 10e3/uL 05/24/2024 11:35 AM CDT [facility] LAB[facility] Absolute Lymphocytes 1.2 0.8 - 5.3 10e3/uL 05/24/2024 11:35 AM CDT [facility] LAB[facility] Absolute Monocytes 0.4 0.0 - 1.3 10e3/uL 05/24/2024 11:35 AM CDT [facility] LAB[facility] Absolute Eosinophils 0.6 0.0 - 0.7 10e3/uL 05/24/2024 11:35 AM CDT [facility] LAB[facility] Absolute Basophils 0.0 0.0 - 0.2 10e3/uL 05/24/2024 11:35 AM CDT [facility] LAB[facility] Absolute Immature Granulocytes 0.0 <=0.4 10e3/uL 05/24/2024 11:35 AM CDT [facility] LAB[facility]ATORY Absolute NRBCs 0.0 10e3/uL 05/24/2024 11:35 AM CDT [facility] LAB[facility]ATORY Blood BLOOD SPECIMEN / Unknown Venipuncture / Unknown 05/24/2024 11:28 AM CDT 05/24/2024 11:32 AM CDT us Stanton Milian MD LAB - BLOOD ORDERABLES Final Res ult LABORATORY [facility] Lab [address] Lab (1st floor, no room number) [place] [phone] * (ABNORMAL) Glucose by meter (05/24/2024 11:27 AM CDT) GLUCOSE BY METER POCT 159(H) 70 - 99 mg/dL 05/24/2024 11:42 AM CDT LABORATORY POC Blood, venous BLOOD SPECIMEN / Unknown 05/24/2024 11:27 AM CDT 05/24/2024 11:42 AM CDT us Stanton Milian MD LAB - BEAKER POCT Final Result Performing Organization Address [facility]/ZIP Co de Phone Number LABORATORY [facility] Lab [address] Lab (1st floor, no room number) [place] [phone] [place] [address] * EKG 12-lead, tracing only (05/24/2024 11:19 AM CDT) Systolic Blood Pressure mmHg RADIOLOGY RESULTS Diastolic Blood Pressure mmHg RADIOLOGY RESULTS Ventricular Rate 53 BPM RAD IOLOGY RESULTS Atrial Rate 53 [address] Y RESULTS CT Interval 156 ms RADIOLOG Y RESULTS QRS Duration 96 ms RADIOLO GY RESULTS QT 448 ms RADIOLOGY RESULTS QTc 420 ms RADIOLOGY RESULTS P [place] 50 degrees RADIOLOGY RESULTS R AXIS 33 degrees RADIOLOGY RESULTS T [place] 49 degrees RADIOLOGY RESULTS Interpretation ECG Sinus bradycardia Minimal voltage criteria for LVH, may be normal variant ( Sokolow-Meyer ) Borderline ECG When compared with ECG of 10-Mar-2022 06:08, No significant change was found Confirmed by - EMERGENCY ROOM, PHYSICIAN (Mirtha), communications editor ROMY GILMAN ([id number]) on 05/26/2024 6:58:10 AM RADIOLOGY RESULTS 05/24/2024 11:1 9 AM CDT 05/26/2024 6:58 AM CDT us Stanton Milian MD ECG ORDERABLES Edited Result - Final RADIOLOGY RESULTS * Albumin Random Urine Quantitative with Creat Ratio (04/18/2024 7:45 AM CDT) Creatinine Urine mg/dL 114.0 mg/dL 04/18/2024 1:46 PM CDT [facility] Comment:The reference ranges have not been established in urine creatinine. The results should be integrated into the clinical context for interpretation. Albumin Urine mg/L <12.0 mg/L 2023 1:46 PM CDT [facility] Comment:The reference ranges have not been established in urine albumin. The results should be integrated into the clinical context for interpretation. Albumin Urine mg/g Cr 04/18/2024 1:46 PM CDT [facility] Comment: Unable to calculate, urine albumin and/or urine creatinine is outside detectable limits. Microalbuminuria is defined as an albumin:creatinine ratio of 17 to 299 for males and 25 to 299 for females. A ratio of albumin:creatinine of 300 or higher is indicative of overt proteinuria. Due to biologic variability, positive results should be confirmed by a second, first-morning random or 24-hour timed urine specimen. If there is discrepancy, a third specimen is recommended. When 2 out of 3 results are in the microalbuminuria range, this is evidence for incipient nephropathy and warrants increased efforts at glucose control, blood pressure control, and institution of therapy with an tylreuoswul-itsznvzabp-voaowh (JOANA) inhibitor (if the patient can tolerate it). ?? Urine URINE SPECIMEN / Unknown Non-blood Collection / Unknown 04/18/2024 7:45 AM CDT 04/18/2024 7:45 AM CDT us Stephie Mahoney MD LAB - URINE ORDERABLES Final Result [facility] Core Lab [address] [facility] [address] [facility], [address] [place] [address], [facility] * 25 Hydroxyvitamin D2 and D3 (04/18/2024 7:42 AM CDT) 25 OH Vitamin D2 <5 ug/L 04/22/20 3:01 PM CDT SPECIAL DRUG/BGEN 25 OH Vitamin D3 32 ug/L 04/22/20 3:01 PM CDT SPECIAL DR[facility] 25 OH Vit D Total <37 20 - 75 ug/L 04/22/2024 3:01 PM CDT [facility] Comment:Season, race, dietar y intake, and treatment affect the concentration of 51-sowgmum-Ogfalbw D. Values may decrease during winter months and increase during summer months. Values 20-29 ug/L may indicate Vitamin D insufficiency and values <20 ug/L may indicate Vitamin D deficiency. Blood BLOOD SPECIMEN / Unknown Venipuncture / Unknown 04/18/2024 7:42 AM CDT 04/18/2024 7:42 AM CDT Narrative SPECIAL DRUG/BGEN - 04/22/2024 3:01 PM CDT This test was developed and its performance characteristics determined by the [facility], ??Special Chemistry Laboratory. It has not been cleared or approved by the FDA. The laboratory is regulated under CLIA as qualified to perform high-complexity testing. This test is used for clinical purposes. It should not be regarded as investigational or for research. Stephie Mahoney MD LAB - BLOOD ORDERABLES Final Result SPECIAL DRUG/BGEN Special Drug/BGEN [address] [facility], [address] [place] [address], [facility] * Tissue transglutaminase mike IgA and IgG (04/18/2024 7:42 AM CDT) Tissue Transglutaminase Antibody IgA <0.2 <7.0 U/mL 04/23/2024 6:33 AM CDT SPECIALTY CORE/PROT/END O Comment:Negative- The tTG-Ig A assay has limited utility for patients with decreased levels of IgA. Screening for celiac disease should include IgA testing to rule out selective IgA deficiency and to guide selection and interpretation of serological testing. tTG-IgG testing may be positive in celiac disease patients with IgA deficiency. Tissue Transglutaminase Antibody IgG <0.6 <7.0 U/mL 04/23/2024 6:33 AM CDT UM SPECIALTY CORE/PROT/END O Comment:Negative Blood BLOOD SPECIMEN / Unknown Venipuncture / Unknown 04/18/2024 7:42 AM CDT 04/18/2024 7:42 AM CDT us Stephie Mahoney MD LAB - BLOOD ORDERABLES Final Result UM SPECIALTY CORE/PROT/ENDO Specialty Core/Prot/Endo [address] [facility] [address] [facility], [address] * (ABNORMAL) Lipid Profile (04/18/2024 7:42 AM CDT) Cholesterol 207(H) <200 mg/dL 04/18/2024 1:50 PM CDT [facility] Triglycerides 42 <150 mg/dL 04/18/2024 1:50 PM CDT [facility] Direct Measure HDL 62 >=40 mg/dL 04/18/2024 1:50 PM CDT [facility] LDL Cholesterol Calculated 137(H) <=100 mg/dL 04/18/2024 1:50 PM CDT [facility] Non HDL Cholesterol 145(H) <130 mg/dL 04/18/2024 1:50 PM CDT [facility] Patient Fasting > 8hrs? Yes 04/18/2024 1:50 PM CDT [facility] Blood BLOOD SPECIMEN / Unknown Venipuncture / Unknown 04/18/2024 7:42 AM CDT 04/18/2024 7:42 AM CDT Narrative [facility] - 04/18/2024 1:50 PM CDT Cholesterol Desirable: ??<200 mg/dL Triglycerides Normal: ??Less than 150 mg/dL Borderline High: ??150-199 mg/dL High: ??200-499 mg/dL Very High: ??Greater than or equal to 500 mg/dL Direct Measure HDL Female: ??Greater than or equal to 50 mg/dL Male: ??Greater than or equal to 40 mg/dL LDL Cholesterol Desirable: ??<100mg/dL Above Desirable: ??100-129 mg/dL Borderline High: ??130-159 mg/dL High: ??160-189 mg/dL Very High: ??>= 190 mg/dL Non HDL Cholesterol Desirable: ??130 mg/dL Above Desirable: ??130-159 mg/dL Borderline High: ??160-189 mg/dL High: ??190-219 mg/dL Very High: ??Greater than or equal to 220 mg/dL us Stephie Mahoney MD LAB - BLOOD ORDERABLES Final Result [facility] Core Lab [address], [address] [place] [address], [facility] * (ABNORMAL) Hemoglobin A1c (04/18/2024 7:42 AM CDT) Hemoglobin A1C 6.7(H) 0.0 - 5.6 % 04/18/2024 7:47 AM CDT LABORATORY Comment: Normal <5.7% Prediabetes 5.7-6.4% ?? Diabetes 6.5% or higher Note: Adopted from ADA consensus guidelines. Blood BLOOD SPECIMEN / Unknown Venipuncture / Unknown 04/18/2024 7:42 AM CDT 04/18/2024 7:42 AM CDT us Stephie Mahoney MD LAB - BLOOD ORDERABLES Final Result LABORATORY [facility] [place] Lab [address] [facility] (no room number, 1st floor of clinic) [place] [address], [facility] * Eye Exam - HIM Scan (06/18/2023) RETINOPATHY UNKNOWN Narrative Maritza Lopez - 06/18/2023 See encounter dated- 06/16/2024 us Patient Reported OTHER Final Result * COLONOSCOPY (05/14/2023 8:14 AM CDT) Pathologist [facility] COLONOSCOPY [facility] Patient Name: Santy Glez ?Procedure Date: 05/14/2023 8:14 AM ? Date of : 1960 ?Admit Type: Outpatient Age: 62 ? Gender: Male Attending MD: GINA SANDOVAL MD, ?Total Sedation Time: 30 mins Instrument Name: 223 - Adult Colonoscope Procedure: ?Colonoscopy Indications: ?Screening for colorectal malignant neoplasm Providers: ?GINA SANDOVAL MD (Doctor) Referring MD: ? DIDIER MAHARAJ MD (Referring MD) Medicines: ?Midazolam 2 mg IV, Fentanyl 100 micrograms IV Complications: ?No immediate complications. Procedure: ?Pre-Anesthesia Assessment: ?- Prior to the procedure, a History and Physical ?was performed, and patient medications and ?allergies were reviewed. The patient is competent. ?The risks and benefits of the procedure and the ?sedation options and risks were discussed with the ?patient. All questions were answered and informed ?consent was obtained. Patient identification and ?proposed procedure were verified by the physician. ?Mental Status Examination: normal. Prophylactic ?Antibiotics: The patient does not require ?prophylactic antibiotics. Prior Anticoagulants: The ?patient has taken no anticoagulant or antiplatelet ?agents. ASA Grade Assessment: II - A patient with ?mild systemic disease. After reviewing the risks ?and benefits, the patient was deemed in ?satisfactory condition to undergo the procedure. ?The anesthesia plan was to use moderate sedation / ?analgesia (conscious sedation). Immediately prior ?to administration of medications, the patient was ?re-assessed for adequacy to receive sedatives. The ?heart rate, respiratory rate, oxygen saturations, ?blood pressure, adequacy of pulmonary ventilation, ?and response to care were monitored throughout the ?procedure. The physical status of the patient was ?re-assessed after the procedure. ?After obtaining informed consent, the colonoscope ?was passed under direct vision. Throughout the ?procedure, the patient's blood pressure, pulse, and ?oxygen saturations were monitored continuously. The ?Olympus Adult Colonoscope, Model # CF-AC839L, ?[place]ora # 223, SN # [id number] was introduced through ?the anus and advanced to the terminal ileum, with ?identification of the appendiceal orifice and IC ?valve. The colonoscopy was performed without ?difficulty. The patient tolerated the procedure ?well. The quality of the bowel preparation was ?evaluated using the BBPS (yetu Bowel Preparation ?Scale) with scores of: Right Colon = 3, Transverse ?Colon = 3 and Left Colon = 3 (entire mucosa seen ?well with no residual staining, small fragments of ?stool or opaque liquid). The total BBPS score ?equals 9. ? Findings: ? Skin tags were found on perianal exam. ? The terminal ileum appeared normal. ? Two semi-sessile polyps were found in the ascending colon. The polyps ? were 4 to 5 mm in size. These polyps were removed with a jumbo cold ? forceps. Resection and retrieval were complete. Estimated blood loss: ? none. ? Scattered small-mouthed diverticula were found in the sigmoid colon. ? External hemorrhoids were found during retroflexion. The hemorrhoids ? were small. ? Impression: ? - Perianal skin tags found on perianal exam. ?- The examined portion of the ileum was normal. ?- Two 4 to 5 mm polyps in the ascending colon, ?removed with a jumbo cold forceps. Resected and ?retrieved. ?- Diverticulosis in the sigmoid colon. ?- External hemorrhoids. Recommendation: ? - Discharge patient to home. ?- Resume regular diet. ?- Continue present medications. ?- Await pathology results. ?- Repeat colonoscopy in 5-10 years for surveillance ?based on pathology results. ? Procedure Code(s): ? --- Professional --- ? 03818, Colonoscopy, flexible; with biopsy, single or multiple Diagnosis Code(s): ? --- Professional --- ? K64.4, Residual hemorrhoidal skin tags ? Z12.11, Encounter for screening for malignant neoplasm of colon ? D12.2, Benign neoplasm of ascending colon ? K57.30, Diverticulosis of large intestine without perforation or abscess ? without bleeding CPT copyright 2021 [employer]. All rights reserved. The codes documented in this report are preliminary and upon song lyricist review may be revised to meet current compliance requirements. Electronic Signature by Dr. Gina Sandoval GINA SANDOVAL MD 05/14/2023 9:19:23 AM I was physically present for the entire viewing portion of the exam. GINA SANDOVAL MD Number of Addenda: 0 Note Initiated On: 05/14/2023 8:14 AM MRN: ?[id number] Procedure Date: ? 05/14/2023 8:14:09 AM Scope Withdrawal Time: 0 hours 20 minutes 55 seconds Total Procedure Duration: 0 hours 23 minutes 46 seconds Estimated Blood Loss: ? Scope In: 8:46:50 AM Scope Out: 9:10:36 AM RADIOLOGY RESULTS 05/14/2023 8:14 AM CDT Didier Maharaj MD PROCEDURES Final Re sult Performing Organization Address [facility]/ZIP Co de Phone Number RADIOLOGY RESULTS * Hepatitis C antibody (11/21/2016 7:44 AM CDT) Hepatitis C Antibody Nonreactive Assay performance characteristics have not been established for newborns, infants, and children NR [facility] Blood specimen (specimen) 11/21/2016 7:44 AM CDT 11/21/2016 7:49 AM CDT Didier Maharaj MD LAB - BLOOD ORDERABLES F inal Result Performing Organization Address [facility]/ZIP Co de Phone Number [facility] [address] [place] [address] from Last 3 Months or Most Recently Relevant to Health Maintenance Insurance [place] Advance Directives For more information, please contact: [phone] * Full Code (Latest Code Status on File) Date Activated Date Inactivated Comments 03/10/2022 4:31 AM 03/12/2022 5:02 PM All basic an d advanced life-sustaining interventions are performed as appropriate Question Answer Comments Code status determined by: Discussion with patie nt/ legal decision maker * Full Code Date Activated Date Inactivated Comments 07/12/2019 10:58 AM 08/10/2019 1:26 AM Question Answer Comments Code status determined by: Discussion with patie nt/legal decision maker * Full Code Date Activated Date Inactivated Comments 07/04/2019 12:59 PM 07/12/2019 10:58 AM Question Answer Comments Code status determined by: Discussion with patie nt/legal decision maker Care Teams Certified Prosthetist/Orthotist Relationship Specialty [place] [address] [place] [address] PCP - General Family Practice 11/21/16 [place] [address] [place] [address] Assigned PCP 01/30/21 Stephie Mahoney MD [address] [id number] Endocrinology, Diabetes, and Metabolism 04/22/21 Federica Foster RN [address] [place] [address] Surgery Scheduler Diabetes Education 04/22/[address] [place] [address] [id number] Surgery Scheduler Nutrition 04/22/21 Stephie Mahoney MD [address] [address] Assigned Endocrinology Provider 05/08/21 Olga Garcia, RN Specialty News Clerk INTERNAL MEDICINE - ENDOCRINOLOGY, DIABETES & METABOLISM 09/29/22 Junior Chavira MD [address] [place] [address] Cardiovascular Disease 05/29/24
--- OUTSIDE RECORDS SUMMARY | 2024-07-02 08:21 | XMS_ITS | Encounter Summary ---
Author Organization [facility] Address [address] [place] [address]. [place] [address] Care Team Providers Care Damage Appraiser Name Role Phone Wilber Vidales MD Primary Care Provider + Wilber Vidales MD Unavailable [phone] Stephie Mahoney MD Unavailable [phone] Federica Foster RN Unavailable [phone] Unavailable [phone] Stephie Mahoney MD Unavailable [phone] Olga Garcia RN Unavailable [phone] Junior Chavira MD Unavailable [phone] Encounter Details Date Type Department Care Team (Latest Contact Info) Description 06/16/2024 Travel Social History Tobacco Use Types Packs/Day [...] week 07/12/2023 How often do you attend [facility] or hindu services? More than 4 times per year 07/12/2023 Do you belong to any clubs o r organizations such as yazdanism groups, unions, fraternal or athletic groups, or [...] Answer Date Recorded PHQ-2 Score 0 11/23/2023 [facility] - Occupational Stress Questionnaire Answer Date Recorded [...] in an abandoned building, in an overnight long-term, or couch-surfing.) Yes 07/12/2023 Are you worried [...] AM CDT 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 LATEX FASHIONS DESIGNER Gender Identity Male 03/03/2019 9:24 PM CDT Sexual Orientation Straight 03/03/2019 9: 24 PM CDT documented as of this encounter Plan of Treatment Upcoming Encounters Date Type Department Care Team (Late st Contact Info) Description 07/11/2024 8:00 AM LATEX FASHIONS DESIGNER Office Visit [facility] [place] [id number] [place] [address] [address] [place] [phone] Junior Chavira MD [address] [place] [id number] 07/30/2024 7:30 AM LATEX FASHIONS DESIGNER Appointment [facility] Special[facility] [address] [place] [address] [address] [place] [phone] Candy Trivedi MD [address] [place] [id number] 08/07/2024 1:30 PM LATEX FASHIONS DESIGNER Virtual Visit [facility] Diabetes Education [address] [phone] Stephie Mahoney MD [address] [place] [address] Federica Foster RN [address] [place] [address] 01/09/2025 8:00 AM CDT Lab [facility] Laboratory [address] [place] [phone] 01/16/2025 3:30 PM CDT Virtual Visit [facility] Endocrinology Clinic [address] [phone] Stephie Mahoney MD [address] [place] [address] 06/05/2025 12:30 PM CDT Office Visit [facility] Endocrinology Clinic [address] [phone] Stephie Mahoney MD [address] [place] [id number] documented as of this encounter Visit Diagnoses Not on filedocumented in this encounter Care Teams Damage Appraiser Relationship Specialty [place] [address] [place] [address] PCP - General Family Practice 11/21/16 [place] [address] [place] [address] Assigned PCP 01/30/21 Stephie Mahoney MD [address] [address] Endocrinology, Diabetes, and Metabolism 04/22/21 Federica Foster, RN [address] [place], [place] [phone] Daycare Manager Diabetes Education 04/22/[address] [place] [phone] Daycare Manager Nutrition 04/22/21 Stephie Mahoney MD [address] [id number] Assigned Endocrinology Provider 05/08/21 Olga Garcia, RN Specialty Clearance Representative INTERNAL MEDICINE - ENDOCRINOLOGY, DIABETES & METABOLISM 09/29/22 Junior Chavira MD [address] [place], [place] [phone] Cardiovascular Disease 05/29/24 documented as of this encounter
--- OUTSIDE RECORDS SUMMARY | 2024-07-02 08:21 | XMS_ITS | Encounter Summary ---
Author Organization [place] Address [address] [place] [address]. [place] [address] Care Team Providers Care Orthopedic Podiatrist Name Role Phone Wilber Vidales MD Primary Care Provider + Wilber Vidales MD Unavailable [phone] Stephie Mahoney MD Unavailable [phone] Federica Foster RN Unavailable [phone] Unavailable [phone] Stephie Mahoney MD Unavailable [phone] Olga Garcia RN Unavailable [phone] Junior Chavira MD Unavailable [phone] Encounter Details Date Type Department Care Team (Late st Contact Info) Description 06/11/[address] [facility] End[facility]ology [facility] [place] [address] [facility] [address] 3rd [place] [address] Stephie Mahoney MD [address] [facility] [address] [place] [address] Social History Tobacco Use Types Packs/Day Years [...] often do you attend chur ch or restorationism services? More than 4 times per year 07/12/2023 Do you belong to any clubs o r organizations such as quaker groups, unions, fraternal or athletic groups, or [...] Answer Date Recorded PHQ-2 Score 0 11/23/2023 [facility] Occupat ional Health - Occupational Stress [...] Date Recorded Do you have housing? (Nori rodriguez is defined as stable permanent housing and does not include staying ouside in a car, in a tent, in an abandoned building, in an overnight custodial, or couch-surfing.) Yes 07/12/2023 Are you worried [...] AM CDT 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 KILN LABOURER Gender Identity Male 03/03/2019 9:24 PM CDT Sexual Orientation Straight 03/03/2019 9: 24 PM CDT documented as of this encounter Miscellaneous Notes * Telephone Encounter - Stephie Mahoney MD - 06/11/2024 5:02 PM CDT Called pt - labs reveiwed below. - Dear Santy Here are your lab which look pretty good. If you have any questions, please feel free to contact my nurse at [phone] select option #3 for triage nurse or option #1 for scheduling related questions. Regards Stephie Mahoney MD Lab on 06/10/2024 Component Date Value Ref Range Status Cortisol 06/10/2024 20.3 ug/dL Final 6 months and older: 6 to 10 AM Cortisol Reference Range: 4-22 ug/dL 4 to 8 PM Cortisol Reference Range: 3-17 ug/dL Sodium 06/10/2024 135 135 - 145 mmol/L Final Potassium 06/10/2024 4.4 3.4 - 5.3 mmol/L Final Chloride 06/10/2024 95 (L) 98 - 107 mmol/L Final Carbon Dioxide (CO2) 06/10/2024 31 (H) 22 - 29 mmol/L Final Anion Gap 06/10/2024 9 7 - 15 mmol/L Final Urea Nitrogen 06/10/2024 14.4 8.0 - 23.0 mg/dL Final Creatinine 06/10/2024 0.90 0.67 - 1.17 mg/dL Final GFR Estimate 06/10/2024 >90 >60 mL/min/1.73m2 Final eGFR calculated using 2020 CKD-EPI equation. Calcium 06/10/2024 9.1 8.8 - 10.4 mg/dL Final Reference intervals for this test were updated on 03/04/2024 to reflect our healthy population more accurately. There may be differences in the flagging of prior results with similar values performed with this method. Those prior results can be interpreted in the context of the updated reference intervals. Glucose 06/10/2024 216 (H) 70 - 99 mg/dL Final Osmolality Blood 06/10/2024 291 280 - 301 mmol/kg Final documented in this encounter Plan of Treatment Upcoming Encounters Date Type Department Care Team (Late st Contact Info) Description 07/11/2024 8:00 AM KILN LABOURER Office [facility] [address] [facility] [address] [place] [address] Junior Chavira MD [address] [place] [address] 07/30/2024 7:30 AM KILN LABOURER Appointment [facility] [address] [facility] [address] [place] [address] Candy Trivedi MD [address] [facility] [address] [place] [address] 08/07/2024 1:30 PM KILN LABOURER Virtual Visit [facility] Diabetes Education [address] [phone] Stephie Mahoney MD [address] [place] [address] Federica Foster RN [address] [place] [address] 906295 01/09/2025 8:00 AM CDT Lab [facility] [address] [place] [phone] 01/16/2025 3:30 PM CDT Virtual Visit [facility] [address] [phone] Stephie Mahoney MD [address] [place] [address] 074195 06/05/2025 12:30 PM CDT Office Visit [facility] [address] [phone] Stephie Mahoney MD [address] [place] [address] documented as of this encounter Visit Diagnoses Not on filedocumented in this encounter Care Teams Orthopedic Podiatrist Relationship Specialty [place] [address] [place] [address] PCP - General Family Practice 11/21/16 [place] [address] [place] [address] Assigned PCP 01/30/21 Stephie Mahoney MD [address] [place] [address] Endocrinology, Diabetes, and Metabolism 04/22/21 Federica Foster RN [address] [place] [address] Oil Driller Diabetes Education 04/22/[address] [place] [address] Oil Driller Nutrition 04/22/21 Stephie Mahoney MD [address] [place] [address] Assigned Endocrinology Provider 05/08/21 Olga Garcia RN Specialty Composition Siding Worker INTERNAL MEDICINE - ENDOCRINOLOGY, DIABETES & METABOLISM 09/29/22 Junior Chavira MD [address] [place], [place] [address] Cardiovascular Disease 05/29/24 documented as of this encounter
--- OUTSIDE RECORDS SUMMARY | 2024-07-02 08:21 | XMS_ITS | Encounter Summary ---
Author Organization [place] Address [address] [place] [address]. [place] [address] Care Team Providers Care Acquisition Marketing Manager Name Role Phone Wilber Vidales MD Primary Care Provider + Wilber Vidales MD Unavailable [phone] Stephie Mahoney MD Unavailable [phone] Federica Foster RN Unavailable [phone] Unavailable [phone] Stephie Mahoney MD Unavailable [phone] Olga Garcia RN Unavailable [phone] Junior Chavira MD Unavailable [phone] Encounter Details Date Type Department Care Team (Late st Contact Info) Description 06/10/2024 Telephone [facility] Endocrinology Clinic [place] [address] [facility] [address] 3rd [place] [address] Stephie Mahoney MD [address] [facility] [address] [place] [address] Social History Tobacco Use Types [...] often do you attend chur ch or anabaptist services? More than 4 times per year 07/12/2023 Do you belong to any clubs o r organizations such as sabianist groups, unions, fraternal or athletic groups, or [...] Answer Date Recorded PHQ-2 Score 0 11/23/2023 [facility] Occupat ional Health - Occupational Stress [...] in an abandoned building, in an overnight chcf, or couch-surfing.) Yes 07/12/2023 Are you worried [...] AM CDT 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 HAND CARVER Gender Identity Male 03/03/2019 9:24 PM CDT Sexual Orientation Straight 03/03/2019 9: 24 PM CDT documented as of this encounter Miscellaneous Notes * Telephone Encounter - Stephie Mahoney MD - 06/10/2024 2:42 PM CDT Pt tolerating zetia- script updated documented in this encounter Plan of Treatment Upcoming Encounters Date Type Department Care Team (Late st Contact Info) Description 07/11/2024 8:00 AM HAND CARVER Office Visit [facility] [address] [place] [phone] Junior Chavira MD [address] [place], [place] [address] 07/30/2024 7:30 AM HAND CARVER Appointment [facility] [address] [place] [phone] Candy Trivedi MD [address] [place] [address] 08/07/2024 1:30 PM HAND CARVER Virtual Visit [facility] Diabetes Education [address] [phone] Stephie Mahoney MD [address] [place] [address] 792165 Federica Foster RN 420 [place], [place] 9[address]385 01/09/2025 8:00 AM CDT Lab [facility] Laboratory [address] [place] [phone] 01/16/2025 3:30 PM CDT Virtual Visit [facility] Endocrinology Clinic [address] [phone] Stephie Mahoney MD [address] [place] [address] 7101[address] 06/05/2025 12:30 PM CDT Office Visit [facility] Endocrinology [address] [phone] Stephie Mahoney MD [address] [place] [address] [phone] documented as of this encounter Visit Diagnoses Diagnosis Type 1 diabetes mellitus with hyperglycemia (H) Type I (juvenile type) diabetes mellitus without mention of complication, not stated as uncontrolled documented in this encounter Care Teams Acquisition Marketing Manager Relationship Specialty [place] [address] [address] [facility] [address] PCP - General Family Practice 11/21/16 [place] [address] [address] [address] Assigned PCP 01/30/21 Stephie Mahoney MD [address] [place] [address] Endocrinology, Diabetes, and Metabolism 04/22/21 Federica Foster, RN [address] [place], [place] [phone] Machine Farmworker Diabetes Education 04/22/[address] [place] [address] Machine Farmworker Nutrition 04/22/21 Stephie Mahoney MD [address] [place] [address] Assigned Endocrinology Provider 05/08/21 Olga Garcia, RN Specialty Patient Support Assistant INTERNAL MEDICINE - ENDOCRINOLOGY, DIABETES & METABOLISM 09/29/22 Junior Chavira MD [address] [facility] [address] [place] [address] Cardiovascular Disease 05/29/24 documented as of this encounter
--- OUTSIDE RECORDS SUMMARY | 2024-07-02 08:21 | XMS_ITS | Encounter Summary ---
Author Organization [place] Address [address] [place] [address]. [place] [address] Care Team Providers Care Rheumatologist Name Role Phone Wilber Vidales MD Primary Care Provider + Wilber Vidales MD Unavailable [phone] Stephie Mahoney MD Unavailable [phone] Federica Foster RN Unavailable [phone] Unavailable [phone] Stephie Mahoney MD Unavailable [phone] Olga Garcia RN Unavailable [phone] Junior Chavira MD Unavailable [phone] Reason for Visit * Reason Comments Hypertension Encounter Details Date Type Department Care Team (Late st Contact Info) Description 06/16/2024 1:30 PM CDT Office Visit [facility] [address] [place] [address] [place] [id number] [place] [address] Benign essential hypertension (Primary Dx); Paroxysmal atrial fibrillation (H); 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 More than 4 times per year 07/12/2023 Do you belong to any clubs o r organizations such as advent groups, unions, fraternal or athletic groups, or [...] Answer Date Recorded PHQ-2 Score 0 11/23/2023 [facility] - Occupational Stress Questionnaire Answer Date [...] in an abandoned building, in an overnight fci, or couch-surfing.) Yes 07/12/2023 Are you worried [...] AM CDT 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 HEALTH PLAN SPECIALIST Gender Identity Male 03/03/2019 9:24 PM CDT Sexual Orientation Straight 03/03/2019 9: 24 PM CDT documented as of this encounter Last Filed Vital Signs Vital Sign Reading [...] Mass Index 26.93 06/16/2024 1:00 PM CDT documented in this encounter Progress Notes * Shantel Walker MD - 06/16/2024 1:30 PM CDT Assessment & Plan Benign essential hypertension - recently uncontrolled, reports work stress over the past month. No other changes. No chest pain/pressure, dyspnea. Using his CPAP nightly, sleeping well. Reports he doesn't monitor his sodium. Episode earlier this month where he had hypotension, thought to be relatedto accidental overmedication. EKG today similar to previous. Will run labs as below. If all normal,encouraged higher dose of lisinopril - script sent. He should follow his BP closely with dose increase to ensure no recurrent hypotension. - EKG 12-lead complete w/read - Clinics - lisinopril (ZESTRIL) 30 MG tablet; Take 1 tablet (30 mg) by mouth daily. 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 BMI Estimated body mass index is 26.93 kg/m?? as calculated from the following: Height as of this encounter: 1.765 m (5' 9.5). Weight as of this encounter: 83.9 kg (185 lb). Tataina Madera is a 63 year old, presenting for the following health issues: Hypertension 06/16/2024 1:08 PM Additional Questions Roomed by Vane Trevizo Via the Health Maintenance questionnaire, the patient has reported the following services have beencompleted -Eye Exam: gavin platt 2023-06-18, this information has been sent to the abstraction team. History of Present Illness Hypertension: He presents for follow up of hypertension. He does check blood pressure regularly outside of the clinic. Outside blood pressures have been over 140/90. He does not follow a low salt diet. He eats 2-3 servings of fruits and vegetables daily.He consumes 0 sweetened beverage(s) daily.He exercises with enough effort to increase his heart rate 30 to 60 minutes per day. He exercises with enough effort to increase his heart rate 4 days per week. He is taking medications regularly. Review of Systems Constitutional, neuro, ENT, endocrine, pulmonary, cardiac, gastrointestinal, genitourinary, musculoskeletal, integument and psychiatric systems are negative, except as otherwise noted. Objective BP (!) 154/96 (BP Location: Right arm, Patient Position: Sitting, Cuff Size: Adult Regular) Pulse85 Temp 98 ??F (36.7 ??C) Resp 16 Ht 1.765 m (5' 9.5) Wt 83.9 kg (185 lb) SpO2 98% BMI26.93 kg/m?? Body mass index is 26.93 kg/m??. Physical Exam GENERAL: alert and no distress NECK: no adenopathy, no asymmetry, masses, or scars RESP: lungs clear to auscultation - no rales, rhonchi or wheezes CV: regular rate and rhythm, normal S1 S2, no S3 or S4, no murmur, click or rub, no peripheral edema PSYCH: mentation appears normal, affect normal/bright EKG - Reviewed and interpreted by me appears normal, NSR, normal axis, normal intervals, no acute ST/T changes c/w ischemia, no LVH by voltage criteria, unchanged from previous tracings Signed Electronically by: Shantel Walker MD documented in this encounter Plan of Treatment Upcoming Encounters Date Type Department Care Team (Late st Contact Info) Description 07/11/2024 8:00 AM HEALTH PLAN SPECIALIST Office Visit [facility] [address] [place] [address] [address] [place] [phone] Junior Chavira MD [address] [place] [id number] 07/30/2024 7:30 AM HEALTH PLAN SPECIALIST Appointment [facility] Specialty Care [address] [place] [phone] Candy Trivedi MD [address] [place] [address] 08/07/2024 1:30 PM HEALTH PLAN SPECIALIST Virtual Visit [facility] Diabetes Education [address] [phone] Stephie Mahoney MD [address] [place] [address] 220245 Federica Foster RN 420 [place], [place] 9[address] 01/09/2025 8:[address] [facility] [address] [place] [phone] 01/16/2025 3:30 PM CDT Virtual Visit [facility] Endocrinology Clinic [address] [phone] Stephie Mahoney MD [address] [place] [address] 400315 06/05/2025 12:30 PM CDT Office Visit [facility] Endocrinology Clinic [address] [phone] Stephie Mahoney MD [address] [place] [address] [phone] documented as of this encounter Procedures Procedure Name Priority Date/Time Associated Diagnosis Comments TSH Routine 06/16/2024 2:16 PM CDT Benign essential hypertension T4 FREE Routine 06/16/2024 2:16 PM CDT Benign essential hypertension N TERMINAL PRO BNP OUTPATIENT Routine 06/16/2024 2:16 PM CDT Benign essential hypertension BASIC METABOLIC PANEL Routine 06/16/2024 2:16 PM CDT Benign essential hypertension EKG 12-LEAD COMPLETE W/READ - CLINICS Routine 06/16/2024 Benign essential hypertension documented in this encounter Results * TSH (06/16/2024 2:16 PM CDT) TSH 2.21 0.30 - 4.20 uIU/mL 06/17/2024 11:53 AM CDT UR LABORATORY Blood BLOOD SPECIMEN / Unknown Venipuncture / Unknown 06/16/2024 2:16 PM CDT 06/16/2024 2:16 PM CDT us Shantel Walker MD LAB - BLOOD ORDERABLES Fi nal Result UR LABORATORY [facility] Acute Care Lab [address] [place] [address], Room [address] [place] [phone] * T4, free (06/16/2024 2:16 PM CDT) Free T4 1.39 0.90 - 1.70 ng/dL 06/17/2024 11:53 AM CDT UR LABORATORY Blood BLOOD SPECIMEN / Unknown Venipuncture / Unknown 06/16/2024 2:16 PM CDT 06/16/2024 2:16 PM CDT us Shantel Walker MD LAB - BLOOD ORDERABLES Fi nal Result UR LABORATORY [facility] Acute Care Lab [facility], Room [address] [phone] * BNP-N terminal pro (06/16/2024 2:16 PM CDT) N Terminal Pro BNP Outpatient [phone] [...] Shantel Walker MD LAB - BLOOD ORDERABLES nal Result UR LABORATORY [facility] Acute Care Lab [address] [place] [address], Room [address] [phone] * (ABNORMAL) Basic metabolic panel (Ca, Cl, CO2, Creat, Gluc, K, Na, BUN) (06/16/2024 2:16 PM CDT) Sodium 135 135 - 145 mmol/L 06/17/2024 [...] 11:53 AM CDT UR LABORATORY Comment:eGFR calculated usin 2020 CKD-EPI equation. Calcium 9.2 8.8 - 10.4 [...] BLOOD ORDERABLES Fi nal Result UR LABORATORY [facility] Acute Care Lab [address] [facility], Room [address] [place] [address], 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) Type 1 diabetes mellitus with hyperglycemia (H) Type I (juvenile type) diabetes mellitus without mention of complication, not stated as uncontrolled documented in this encounter Care Teams Rheumatologist Relationship Specialty [place] [address] [place] [address] PCP - General Family Practice 11/21/16 [place] [address] [place] [address] Assigned PCP 01/30/21 Stephie Mahoney MD [address] 640795 Endocrinology, Diabetes, and Metabolism 04/22/21 Federica Foster, RN 420 [place], [place] 430815 Aviation Engineer Diabetes Education 04/22/[address] [facility] [address] 765[address] Aviation Engineer Nutrition 04/22/21 Stephie Mahoney MD [address] 254115 Assigned Endocrinology Provider 05/08/21 Olga Garcia, RN Specialty Balloon Dipper INTERNAL MEDICINE - ENDOCRINOLOGY, DIABETES & METABOLISM 09/29/22 Junior Chavira MD [address] [place] [address] Cardiovascular Disease 05/29/24 documented as of this encounter
--- OUTSIDE RECORDS SUMMARY | 2024-07-02 08:21 | XMS_ITS | Encounter Summary ---
Author Organization [place] Address [address] [place] [address]. [place] [address] Care Team Providers Care Credit Reporting Clerk Name Role Phone Wilber Vidales MD Primary Care Provider + Wilber Vidales MD Unavailable [phone] Stephie Mahoney MD Unavailable [phone] Federica Foster RN Unavailable [phone] Unavailable [phone] Stephie Mahoney MD Unavailable [phone] Olga Garcia RN Unavailable [phone] Junior Chavira MD Unavailable [phone] Reason for Visit * Reason Onset Date Comments AC hold form 06/10/2024 Procedure--right L2 NRI Encounter Details Date Type Department Care Team (Late st Contact Info) Description 06/10/2024 [facility] Heart [address] [place] [address] Janee Cota, RN AC hold form (Procedure--right L2 NRI) Social History Tobacco Use Types Packs/Day Years [...] often do you attend chur ch or confucianist services? 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 Procedure right L2 NRI. Sent copy to [facility] to scan. Copy in EP filing cabinet. MENDEL Brenner documented in this encounter Plan of Treatment Upcoming Encounters Date Type Department Care Team (Late st Contact Info) Description 07/11/2024 8:00 AM AIR SHOVEL OPERATOR Office Visit [facility] Heart [facility] [address] [facility] [address] [place] [phone] Junior Chavira MD [address] [place], [place] [phone] 07/30/2024 7:30 AM AIR SHOVEL OPERATOR Appointment [facility] Specialty Care [address] [facility] [address] [place] [phone] Candy Trivedi MD [address] [place] [address] 08/07/2024 1:30 PM AIR SHOVEL OPERATOR Virtual Visit [facility] Diabetes Education [address] [phone] Stephie Mahoney MD [address] [place] [address] [phone] Federica Foster, RN 420 [place] [address] 01/09/2025 8:00 AM CDT Lab [facility] Laboratory [address] [place] [phone] 01/16/2025 3:30 PM CDT Virtual Visit [facility] Endocrinology [address] [phone] Stephie Mahoney MD [address] [place] [address] 842605 06/05/2025 12:30 PM CDT Office Visit [facility] Endocrinology [address] [phone] Stephie Mahoney MD [address] 014075 documented as of this encounter Visit Diagnoses Not on filedocumented in this encounter Care Teams Credit Reporting Clerk Relationship Specialty [place] [address] [address] [phone] PCP - General Family Practice 11/21/16 [place] [address] [address] [id number] Assigned PCP 01/30/21 Stephie Mahoney MD [address] [place] [address] 314385 Endocrinology, Diabetes, and Metabolism 04/22/21 Federica Foster RN [address] [place] [address] [phone] Oracle Applications Analyst Diabetes Education 04/22/[address] [place] [address] [phone] Oracle Applications Analyst Nutrition 04/22/21 Stephie Mahoney MD [address] [place] [address] [phone] Assigned Endocrinology Provider 05/08/21 Olga Garcia, RN Specialty Spar Machine Operator INTERNAL MEDICINE - ENDOCRINOLOGY, DIABETES & METABOLISM 09/29/22 Junior Chavira MD [address] [place] [address] Cardiovascular Disease 05/29/24 documented as of this encounter
--- OUTSIDE RECORDS SUMMARY | 2024-07-02 08:21 | XMS_ITS | Referral Summary ---
Author Organization [place] Address [address] [place] [address]. [place] [address] Care Team Providers Care Commonwealth Attorney Name Role Phone Didier Maharaj MD Primary Care Provider + Didier Maharaj MD Unavailable [phone] Stephie Mahoney MD Unavailable [phone] Federica Foster RN Unavailable [phone] Unavailable [phone] Stephie Mahoney MD Unavailable [phone] Olga Garcia RN Unavailable [phone] Junior Chavira MD Unavailable [phone] Encounters Date Type Department Care Team Description 06/17/2024 Orders Only [facility] [address] [place] [phone] Shantel Walker MD 06/16/2024 Travel 06/16/2024 1:30 PM CDT Office Visit [facility] [address] [place] [phone] Shantel Walker MD Benign essential hypertension (Primary Dx); Paroxysmal atrial fibrillation (H); 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, 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); Type 1 diabetes mellitus with hyperglycemia (H) 06/16/2024 MyC Medical Advice [facility] [address] [place] [phone] Didier Maharaj MD 06/11/2024 Telephone [facility] Endocrinology [facility] [address] [place] [phone] Stephie Mahoney MD 06/10/2024 Medical Correspondence [facility] Information Management [address] [facility] [address] [place] [address] Scan, Non-Provider 06/10/[address] [phone] Janee Cota RN AC hold form (Procedure--right L2 NRI) 06/10/2024 Telephone [facility] Endocrinology [address] [phone] Stephie Mahoney MD 06/10/2024 Travel 06/10/2024 MyC Medical Advice [facility] Endocrinology [address] [phone] Olga Garcia RN 06/10/2024 8:[address] [facility] [address] [place] [phone] Type 1 diabetes mellitus with hyperglycemia (H) 06/09/2024 [facility] [place] [id number] [address] [place] [phone] Janee Cota RN AC hold 06/02/2024 [facility] Endocrinology [address] [phone] Stephie Mahoney MD Medication Question 06/02/2024 MyC Medical Advice [place] [id number] [address] [place] [phone] Valerie [place] 05/30/2024 Travel 05/30/2024 1:00 PM CDT Office Visit [facility] Endocrinology Clinic [address] [phone] Stephie Mahoney MD Type 1 diabetes mellitus with hyperglycemia (H) (Primary Dx) 05/29/2024 Telephone [facility] Heart [facility] [address] [facility] [address] [place] [phone] Candy Trivedi MD Appointment (Referral per Shikha) 05/29/2024 MyC Medical Advice [facility] Heart [facility] [address] [facility] [address] [place] [phone] Damaris Tripathi 05/27/2024 Telephone [facility]ology Clinic [address] [phone] Stephie Mahoney MD 05/27/2024 Telephone [facility] [address] [phone] Rebecca Harvey, RN 05/27/2024 Telephone [facility] [address] [phone] Rebecca Harvey, RN 05/24/2024 Travel 05/24/2024 11:10 AM CDT - 05/24/2024 1:29 PM CDT Emergency [facility] Emergency Dept [address] [place] [address] Stanton Milian MD Near syncope; Hyponatremia Discharge Disposition: Home or Self Care 05/23/2024 MyC Medical Advice [facility] End[facility]inology Clinic [address] [phone] Rebecca Harvey, RN 04/25/2024 MyC Medical Advice [facility] [address] [phone] Dinah Velazquez 04/25/2024 Telephone [facility] [address] [phone] Stephie Mahoney MD Appointment (Follow-up in May ) 04/25/2024 Telephone [facility] [address] [phone] Stephie Mahoney MD 04/18/2024 Travel 04/18/2024 7:[address] [facility] [address] [place] [phone] Hyperlipidemia LDL goal <100; Benign essential hypertension; Type 1 diabetes mellitus with hyperglycemia (H); Type 1 diabetes mellitus without complication (H); Elevated glucose from Last 3 Months Allergies Active Allergy Reactions Criticality Noted Date [...] tablet Take 50 mg by mouth daily Active insulin syringe-needle U-100 (30G X 1/2 0.3 ML) 30G X 1/2 0.3 ML miscellaneousInd ications:Type 1 diabetes mellitus with hyperglycemia (H) Use in the event of pump failure and need to administer manual injection. 10 each Active LAMOTRIGINE PO Take 300 mg by mouth 2 times daily Active vitamin C (ASCORBIC ACID) 1000 MG TABS Take 1 tablet by mouth daily Active cholecalciferol (VITAMIN D3) 125 mcg (5000 [...] mouth daily (with dinner) 90 tablet 3 024 Active Additional Information Patient not taking.Reported on 06/16/2024 insulin glargine (LANTUS PEN) 100 UNIT/ML penIndications:T ype 1 diabetes mellitus with hyperglycemia (H) 20 units if pod fails 3 mL 024 Active Continuous Glucose Sensor (DEXCOM G7 SENSOR) [...] Atrial fibrillation 07/14/2019 Aortic valve replaced 07/14/2019 FDC current use of anticoagulant therapy 1 09/10/2018 Status post coronary angiogram 06/18/2019 Abnormal findings diagnostic imaging of heart and coronary circulation 06/12/2019 Overview (06/12/2019): Added automatically from request for surgery [id number] ESCALONA (dyspnea on exertion) 04/28/2019 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, without status epilepticus 11/21/2016 JEFERSON (obstructive sleep apnea) 11/21/2016 Bilateral carotid artery stenosis 11/21/2016 Chronic lower back pain 09/03/2014 Resolved Problems Problem Noted Date Diagnosed Date Resolved Date Type 2 diabetes mellitus wit h other circulatory complication, without long-term current use of insulin 07/19/2023 06/16/2024 Infection due to 2019 novel coronavirus 03/10/2022 06/16/2024 Acute pain of right knee 06/14/2020 Aortic valve stenosis 07/04/20192018 Chronic systolic heart failure 04/28/2019 07/01/2020 Overview (04/28/2019): Grade 4/6 03/17/19 Lateral epicondylitis of left elbow 03/28/2019 05/20/2019 Elbow pain, left 03/28/2019 05/20/2019 Nonrheumatic aortic valve stenosis 03/08/2018 07/29/2019 Central sleep apnea 11/21/2016 11/22/19 17 Brain tumor 08/20/1998 07/10/2022 Immunizations Name Administration Dates Next Due Flu, Unspecified 07/16/1995 Influenza (intradermal) 06/07/2012 Influenza Vaccine 18-64 (Flublok) 07/01/2020 TDAP Vaccine (Adacel) 03/08/2018 Td (Adult), Adsorbed 07/16/1995 Zoster vaccine, live 06/04/2017 Social History Tobacco Use Types Packs/Day Years [...] often do you attend chur ch or samaritan services? More than 4 times per year 07/12/2023 Do you belong to any clubs o r organizations such as christian groups, unions, fraternal or athletic groups, or [...] Answer Date Recorded PHQ-2 Score 0 11/23/2023 [facility] - [...] AM CDT 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 CORRECTIONAL FOOD SERVICE SUPERVISOR Gender Identity Male 03/03/2019 9:24 PM CDT [...] st Contact Info) Description 07/11/2024 8:00 AM CORRECTIONAL FOOD SERVICE SUPERVISOR Office Visit [facility] Heart [facility] [address] [place] [address] [address] [place] [phone] Junior Chavira MD [address] [place] [address] 07/30/2024 7:30 AM CORRECTIONAL FOOD SERVICE SUPERVISOR Appointment [facility] [address] [place] [phone] Candy Trivedi MD [address] [place] [address] 08/07/2024 1:30 PM CORRECTIONAL FOOD SERVICE SUPERVISOR Virtual Visit [facility] Diabetes Education [address] [phone] Stephie Mahoney MD [address] [place] [address] [phone] Federica Foster RN [address] [place] [address] [phone] 01/09/2025 8:[address] [facility] [address] [place] [phone] 01/16/2025 3:30 PM CDT Virtual Visit [facility] Endocrinology Clinic [address] [phone] Stephie Mahoney MD [address] [place] [address] [phone] 06/05/2025 12:30 PM CDT Office Visit [facility] Endocrinology Clinic [address] [phone] Stephie Mahoney MD [address] [place] [address] [phone] Medical Devices Implanted Type Area Wheel Press Clerk Device Identifier Shelf Expiration Date Model / Serial / Lot Lead Artirial Pacing Temporary 53cm [id number] Implanted:Qty : 1 on 07/04/2019 by Ej Haines MD at [facility] Leads [employer] Cardiac Pa [id number] / / Imp Kit Suture Cor-Knot Mini 4x14mm [id number] Implanted:Qty : 1 on 07/04/2019 by Ej Haines MD at [facility] Metallic Hardware/Anc hor [employer] [id number] / / Valve Aortic Perimount Magna-Ease Bioprosth 23mm [id number] Implanted:Qty : 1 on 07/04/2019 by Ej Haines MD at [facility] Valve N/A: Heart [employer] 01/29/2023 [id number] / [id number] / Device Burgess Endo Cor Knot Quick Load Reload [id number] Implanted:Qty : 1 on 07/04/2019 by Ej Haines MD at [facility] Wire [employer] [id number] / / Procedures Procedure Name Priority Date/Time [...] BLOOD ORDERABLES Fi nal Result UR LABORATORY [facility] Acute Care Lab [address] [facility], [address] [place] [address] * T4, free (06/16/2024 2:16 PM CDT) Free T4 1.39 0.90 - 1.70 ng/dL 06/17/2024 11:53 AM CDT UR LABORATORY Blood BLOOD SPECIMEN / Unknown Venipuncture / Unknown 06/16/2024 2:16 PM CDT 06/16/2024 2:16 PM CDT us Shantel Walker MD LAB - BLOOD ORDERABLES Fi nal Result UR LABORATORY [facility] Acute Care Lab [address] [place] [address], [address] * BNP-N terminal pro (06/16/2024 2:16 [...] 2:16 PM CDT 06/16/2024 2:16 PM CDT Shantel Walker MD LAB - BLOOD ORDERABLES Fi nal Result Performing Organization Address [facility] Co de Phone Number UR LABORATORY [facility] Acute Care Lab [address] [place] [address], [address] * (ABNORMAL) Basic metabolic panel (Ca, Cl, [...] BLOOD ORDERABLES Fi nal Result UR LABORATORY [facility] Acute Care Lab [address] [facility], [address] [place], [place] [phone] * EKG 12-lead complete w/read - Clinics (06/16/2024) us Shantel Walker MD ECG ORDERABLES Final Res ult * Osmolality (06/10/2024 8:22 AM CDT) Osmolality Blood 291 280 - 301 mmol/kg 06/10/2024 3:57 PM CDT UU LABORATORY Blood BLOOD SPECIMEN / Unknown Venipuncture / Unknown 06/10/2024 8:22 AM CDT 06/10/2024 8:25 AM CDT Narrative LABORATORY - 06/10/2024 3:57 PM CDT Greater than 385 mmol/kg relates to stupor in hyperglycemia Greater than 400 mmol/kg can relate to seizures Greater than 420 mmol/kg can be lethal Serum Osmalar Gap: Normal <10 Larger suggest unmeasured substances present in serum (ethanol, methanol, isopropanol, mannitol, ethylene glycol). Stephie Mahoney MD LAB - BLOOD ORDERABLES Final Result Performing Organization Address City/[facility] de Phone Number LABORATORY [facility] Core Lab [address] [facility], [address] * Cortisol (06/10/2024 8:22 AM CDT) Cortisol 20.3 ug/dL 06/10/2024 4:16 PM CDT U LABORATORY Comment: 6 months and older: 6 to 10 AM Cortisol Reference Range: ??4-22 ug/dL 4 to 8 PM Cortisol Reference Range: ??3-17 ug/dL Blood BLOOD SPECIMEN / Unknown Venipuncture / Unknown 06/10/2024 8:22 AM CDT 06/10/2024 8:25 AM CDT Stephie Mahoney MD LAB - BLOOD ORDERABLES Final Result Performing Organization Address [facility] de Phone Number LABORATORY [facility] Core Lab [address] [facility], Room [address] [phone] * Extra Red Top Tube (05/24/2024 11:28 AM CDT) Hold Specimen JIC 05/24/2024 12:46 PM CDT LABORATORY Blood VENOUS LINE / Unknown Venipuncture / Unknown 05/24/2024 11:28 AM CDT 05/24/2024 11:32 AM CDT us Stanton Milian MD LAB - BLOOD ORDERABLES Final Res ult Performing Organization Address City/[facility]/ZIP Co de Phone Number RH LABORATORY [facility] Acute Care Lab [address] Lab (1st floor, no room number) [place] [address], [place] * Extra Blue Top Tube (05/24/2024 11:28 AM CDT) Hold Specimen JIC 05/24/2024 12:46 PM CDT RH LABORATORY Blood VENOUS LINE / Unknown Venipuncture / Unknown 05/24/2024 11:28 AM CDT 05/24/2024 11:32 AM CDT us Stanton Milian MD LAB - BLOOD ORDERABLES Final Res ult LABORATORY [facility] Care Lab [address] Lab (1st floor, no room number) [address] [place] [address] * (ABNORMAL) CBC with platelets and differential (05/24/2024 11:28 AM CDT) [facility] WBC Count 4.3 4.0 - 11.0 10e3/uL [...] LAB - BLOOD ORDERABLES Final Res ult RH LABORATORY [facility] Acute Care Lab [address] Lab (1st floor, no room number) [place] [address], [facility] * (ABNORMAL) Glucose by meter (05/24/2024 11:27 AM CDT) GLUCOSE BY METER POCT 159(H) 70 - 99 mg/dL 05/24/2024 11:42 AM CDT RH LABORATORY POC Blood, venous BLOOD SPECIMEN / Unknown 05/24/2024 11:27 AM CDT 05/24/2024 11:42 AM CDT us Stanton Milian MD LAB - BEAKER POCT Final Result Performing Organization Address [facility]/ZIP Co de Phone Number RH LABORATORY POC [facility] Acute Care Lab [address] Lab (1st floor, no room number) [place] [address] * EKG 12-lead, tracing only (05/24/2024 11:19 AM CDT) Systolic Blood Pressure mmHg RADIOLOGY RESULTS Diastolic Blood Pressure mmHg RADIOLOGY RESULTS Ventricular Rate 53 BPM RAD IOLOGY RESULTS Atrial Rate 53 BPM RADIOLOG Y RESULTS WY Interval 156 ms RADIOLOG Y RESULTS QRS Duration 96 ms RADIOLO GY RESULTS QT 448 ms RADIOLOGY RESULTS QTc 420 ms RADIOLOGY RESULTS P [place] 50 degrees RADIOLOGY RESULTS R AXIS 33 degrees RADIOLOGY RESULTS T [place] 49 degrees RADIOLOGY RESULTS Interpretation ECG Sinus bradycardia Minimal voltage criteria for LVH, may be normal variant ( Sokolow-Meyer ) Borderline ECG When compared with ECG of 10-Mar-2022 06:08, No significant change was found Confirmed by - EMERGENCY ROOM, PHYSICIAN ([id number]), newspaper managing editor ROMY [place] (Binta) on 05/26/2024 6:58:10 AM RADIOLOGY RESULTS 05/24/2024 11:1 9 AM CDT 05/26/2024 6:58 AM CDT us Stanton Milian MD ECG ORDERABLES Edited Result - Final Performing Organization Address City/[facility]/ZIP Co de Phone Number RADIOLOGY RESULTS * Albumin Random Urine Quantitative [...] control, and institution of therapy with an xqxngctkdau-pxgenscfau-uqoepe (JOANA) inhibitor (if the patient can tolerate it). ?? Urine URINE SPECIMEN / Unknown Non-blood Collection / Unknown 04/18/2024 7:45 AM CDT 04/18/2024 7:45 AM CDT us Stephie Mahoney MD LAB - URINE ORDERABLES Final Result LABORATORY [facility] Core Lab [address] [facility], Room [address] [place] [phone] * 25 Hydroxyvitamin D2 and D3 (04/18/2024 7:42 AM CDT) 25 OH Vitamin D2 <5 ug/L 04/22/20 24 3:01 PM CDT [facility] 25 OH Vitamin D3 32 ug/L 04/22/20 24 3:01 PM CDT [facility] 25 OH Vit D Total <37 20 - 75 ug/L 04/22/2024 3:01 PM CDT SPECIAL DRUG/BGEN Comment:Season, race, dietar y intake, and treatment affect the concentration of 30-btnczdm-Xauhwot D. Values may decrease during winter months and increase during summer months. Values 20-29 ug/L may indicate Vitamin D insufficiency and values <20 ug/L may indicate Vitamin D deficiency. Blood BLOOD SPECIMEN / Unknown Venipuncture / Unknown 04/18/2024 7:42 AM CDT 04/18/2024 7:42 AM CDT Narrative [facility] SPECIAL [facility]UG/[facility] - 04/22/2024 3:01 PM CDT This test was developed and its performance characteristics determined by the [facility], ??Special Chemistry Laboratory. It has not been cleared or approved by the FDA. The laboratory is regulated under CLIA as qualified to perform high-complexity testing. This test is used for clinical purposes. It should not be regarded as investigational or for research. us Stephie Mahoney MD LAB - BLOOD ORDERABLES Final Result Performing Organization Address City/[facility]/ZIP Co de Phone Number SPECIAL DRUG/BGEN Special Drug/BGEN [address] [facility], [address] * Tissue transglutaminase mike IgA and IgG [...] <0.6 <7.0 U/mL 04/23/2024 6:33 AM CDT SPECIALTY CORE/PROT/END O Comment:Negative Blood BLOOD SPECIMEN / Unknown Venipuncture / Unknown 04/18/2024 7:42 AM CDT 04/18/2024 7:42 AM CDT us Stephie Mahoney MD LAB - BLOOD ORDERABLES Final Result SPECIALTY CORE/PROT/ENDO Specialty Core/Prot/Endo [address] [facility], Room [address] * (ABNORMAL) Lipid Profile (04/18/2024 7:42 [...] - BLOOD ORDERABLES Final Result UU LABORATORY [facility] [place] Core Lab [address] [facility], [address] [place] [address], [facility] * (ABNORMAL) Hemoglobin A1c (04/18/2024 7:42 AM CDT) Hemoglobin A1C 6.7(H) 0.0 - 5.6 % 04/18/2024 7:47 AM CDT LABORATORY Comment: Normal <5.7% Prediabetes 5.7-6.4% ?? Diabetes 6.5% or higher Note: Adopted from ADA consensus guidelines. Blood BLOOD SPECIMEN / Unknown Venipuncture / Unknown 04/18/2024 7:42 AM CDT 04/18/2024 7:42 AM CDT us Stephie Mahoney MD LAB - BLOOD ORDERABLES Final Result LABORATORY [facility] [place] Lab [address] [facility] Lab (no room number, 1st floor of clinic) [place] [address], [facility] * Eye Exam - HIM Scan (06/18/2023) RETINOPATHY UNKNOWN Narrative Maritza Lopez - 06/18/2023 See encounter dated- 06/16/2024 us Patient Reported OTHER Final Result * COLONOSCOPY (05/14/2023 8:14 AM CDT) COLONOSCOPY [facility] Patient Name: Santy Glez ?Procedure Date: [...] continuously. The ?Olympus Adult Colonoscope, Model # CF-QO801L, ?[place] # [id number], SN # [id number] was introduced through ?the anus and advanced to the terminal ileum, with ?identification of the appendiceal orifice and IC ?valve. The colonoscopy was performed without ?difficulty. The patient tolerated the procedure ?well. The quality of the bowel preparation was ?evaluated using the BBPS ([place] Bowel Preparation ?Scale) with scores of: Right [...] in the ascending colon, ?removed with a [place] cold forceps. Resected and ?retrieved. ?- Diverticulosis in the sigmoid colon. ?- External hemorrhoids. Recommendation: ? - Discharge patient to home. ?- Resume regular diet. ?- Continue present medications. ?- Await pathology results. ?- Repeat colonoscopy in 5-10 years for surveillance ?based on pathology results. ? Procedure Code(s): ? --- Professional --- ? 15308, Colonoscopy, flexible; with biopsy, single or multiple Diagnosis Code(s): ? --- Professional --- ? K64.4, Residual hemorrhoidal skin tags ? Z12.11, Encounter for screening for malignant neoplasm of colon ? D12.2, Benign neoplasm of ascending colon ? K57.30, Diverticulosis of large intestine without perforation or abscess ? without bleeding CPT copyright 2021 [employer]. All rights reserved. The codes documented in this report are preliminary and upon remote medical coder review may be revised to meet current compliance requirements. Electronic Signature by Dr. iGna Sandoval GINA SANDOVAL MD 05/14/2023 9:19:23 AM I was physically present for the entire viewing portion of the exam. GINA SANDOVAL MD Number of Addenda: 0 Note Initiated On: 05/14/2023 8:14 AM MRN: ?[id number] Procedure Date: ? 05/14/2023 8:14:09 AM Scope Withdrawal Time: 0 hours 20 minutes 55 seconds Total Procedure Duration: 0 hours 23 minutes 46 seconds Estimated Blood Loss: ? Scope In: 8:46:50 AM Scope Out: 9:10:36 AM RADIOLOGY RESULTS 05/14/2023 8:14 AM CDT Didier Maharaj MD PROCEDURES Final Re sult RADIOLOGY RESULTS * Hepatitis C antibody (11/21/2016 7:44 AM CDT) Hepatitis C Antibody Nonreactive Assay performance characteristics have not been established for newborns, infants, and children NR [facility] Blood specimen (specimen) 11/21/2016 7:44 AM CDT 11/21/2016 7:49 AM CDT Didier Maharaj MD LAB - BLOOD ORDERABLES F inal Result Performing Organization Address City/[facility]/ZIP Co de Phone Number [facility] [address] [place] [address] from Last 3 Months or Most Recently Relevant to Health Maintenance [place] [address] [place] Advance Directives For more information, please contact: [phone] * Full Code (Latest Code Status on [...] with patie nt/legal decision maker Care Teams Commonwealth Attorney Relationship Specialty [place] [address] [address] PCP - General Family Practice 11/21/16 [place] [address] [place] [address] Assigned PCP 01/30/21 Stephie Mahoney MD [address] [place] [id number] Endocrinology, Diabetes, and Metabolism 04/22/21 Federica Foster RN [address] [place] [phone] Application Release Manager Diabetes Education 04/22/[address] [place] [address] Application Release Manager Nutrition 04/22/21 Stephie Mahoney MD [address] [place] [address] Assigned Endocrinology Provider 05/08/21 Olga Garcia RN Specialty Senior Net Developer Architect INTERNAL MEDICINE - ENDOCRINOLOGY, DIABETES & METABOLISM 09/29/22 Junior Chavira MD [address] [place] [address] Cardiovascular Disease 05/29/24
--- OUTSIDE RECORDS SUMMARY | 2024-07-02 08:21 | XMS_ITS | Encounter Summary ---
Author Organization [place] Address [address] [place] [address]. [place] [address] Care Team Providers Care Landing Scaler Name Role Phone Wilber Viadles MD Primary Care Provider + Wilber Vidales MD Unavailable [phone] Stephie Mahoney MD Unavailable [phone] Federica Foster RN Unavailable [phone] Unavailable [phone] Stephie Mahoney MD Unavailable [phone] Olga Garcia RN Unavailable [phone] Junior Chavira MD Unavailable [phone] Encounter Details Date Type Department Care Team (Late st Contact Info) Description 06/16/2024 MyC Medical Advice [facility] [address] [place] [address] [place] [address] [place] [address] Social History Tobacco Use Types Packs/Day Years [...] often do you attend chur ch or yazdanism services? More than 4 times per year 07/12/2023 Do you belong to any clubs o r organizations such as congregation groups, unions, fraternal or athletic groups, or [...] Answer Date Recorded PHQ-2 Score 0 11/23/2023 [facility] Occupat ional Health - Occupational Stress Questionnaire [...] in an abandoned building, in an overnight fpc, or couch-surfing.) Yes 07/12/2023 Are you worried [...] AM CDT 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 WORKFORCE PLANNING ANALYST Gender Identity Male 03/03/2019 9:24 PM CDT Sexual Orientation Straight 03/03/2019 9: 24 PM CDT documented as of this encounter Miscellaneous Notes * Telephone Encounter - Frances Ayala RN - 06/16/2024 12:25 PM CDT See telephone triage encounter 06/16/24. Frances Ayala RN 06/16/2024 12:33 PM [facility] documented in this encounter Plan of Treatment Upcoming Encounters Date Type Department Care Team (Liam patel Contact Info) Description 07/11/2024 8:00 AM WORKFORCE PLANNING ANALYST Office Visit [facility] Heart [facility] [address] [facility] [address] [place] [phone] Junior Chavira MD [address] [place], [place] [address] 07/30/2024 7:30 AM WORKFORCE PLANNING ANALYST Appointment [facility] Specialty Care [address] [place] [phone] Candy Trivedi MD [address] [place], [place] [address] 08/07/2024 1:30 PM WORKFORCE PLANNING ANALYST Virtual Visit [facility] Diabetes Education [address] [address] Stephie Mahoney MD [address] [place] [address] 507845 Federica Foster, RN [address] [place], [place] [address] 01/09/2025 8:00 AM CDT Lab [facility] Laboratory [address] [place] [address] 01/16/2025 3:30 PM CDT Virtual Visit [facility] Endocrinology Clinic [address] [address] Stephie Mahoney MD [address] [place] [address] 123135 06/05/2025 12:30 PM CDT Office Visit [facility] Endocrinology Clinic [address] [address] Stephie Mahoney MD [address] [place] [address] documented as of this encounter Visit Diagnoses Not on filedocumented in this encounter Care Teams Landing Scaler Relationship Specialty [place] [address] [place] [address] PCP - General Family Practice 11/21/16 [place] [address] [place] [address] Assigned PCP 01/30/21 Stephie Mahoney MD [address] [place] [address] Endocrinology, Diabetes, and Metabolism 04/22/21 Federica Foster RN [address] [place] [address] 009005 Vaccine Manager Diabetes Education 04/22/[address] [place] [address] Vaccine Manager Nutrition 04/22/21 Stephie Mahoney MD [address] [place] [address] Assigned Endocrinology Provider 05/08/21 Olga Garcia RN Specialty Television Service Engineer INTERNAL MEDICINE - ENDOCRINOLOGY, DIABETES & METABOLISM 09/29/22 Junior Chavira MD [address] [place] 258055 Cardiovascular Disease 05/29/24 documented as of this encounter
--- OUTSIDE RECORDS SUMMARY | 2024-07-02 08:21 | XMS_ITS | Encounter Summary ---
Author Organization [place] Address [address] [place] [address]. [place] [address] Care Team Providers Care Boat Hoist Operator Name Role Phone Wilber Vidales MD Primary Care Provider + Wilber Vidales MD Unavailable [phone] Stephie Mahoney MD Unavailable [phone] Federica Foster RN Unavailable [phone] Unavailable [phone] Stephie Mahoney MD Unavailable [phone] Olga Garcia RN Unavailable [phone] Junior Chavira MD Unavailable [phone] Encounter Details Date Type Department Care Team (Late st Contact Info) Description 06/10/2024 [facility] End[facility]ology Clinic [address] 3rd [place] [address] Olga Garcia, RN Social History Tobacco Use Types Packs/Day Years [...] often do you attend chur ch or christian services? More than 4 times per year 07/12/2023 Do you belong to any clubs o r organizations such as yarsani groups, unions, fraternal or athletic groups, or [...] Answer Date Recorded PHQ-2 Score 0 11/23/2023 [facility] Health - Occupational Stress Questionnaire Answer [...] in an abandoned building, in an overnight assisted, or couch-surfing.) Yes 07/12/2023 Are you worried [...] AM CDT 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 CODING VALIDATOR Gender Identity Male 03/03/2019 9:24 PM CDT Sexual Orientation Straight 03/03/2019 9: 24 PM CDT documented as of this encounter Plan of Treatment Upcoming Encounters Date Type Department Care Team (Late st Contact Info) Description 07/11/2024 8:00 AM CODING VALIDATOR Office Visit [facility] Heart [facility] [address] [facility] [address] [place] [address] Junior Chavira MD [address] [place] [address] 07/30/2024 7:30 AM CODING VALIDATOR Appointment [facility] Specialty Care [address] [place] [phone] Candy Trivedi MD [address] [facility] [address] [place] [address] 08/07/2024 1:30 PM CODING VALIDATOR Virtual Visit [facility] Diabetes Education [address] [phone] Stephie Mahoney MD [address] [place] [address] Federica Foster RN 420 [place], [place] [address] 01/09/2025 8:00 AM CDT Lab [facility] Laboratory [address] [place] [phone] 01/16/2025 3:30 PM CDT Virtual Visit [facility] Endocrinology Clinic [address] [phone] Stephie Mahoney MD [address] [place] [address] 06/05/2025 12:30 PM CDT Office Visit [facility] Endocrinology Clinic [address] [phone] Stephie Mahoney MD [address] [place] [address] documented as of this encounter Visit Diagnoses Not on filedocumented in this encounter Care Teams Boat Hoist Operator Relationship Specialty [place] [address] [place] [address] PCP - General Family Practice 11/21/16 [place] [address] [place] [address] Assigned PCP 01/30/21 Stephie Mahoney MD [address] [address] Endocrinology, Diabetes, and Metabolism 04/22/21 Federica Foster, RN 420 [place], [place] 822[address] Supervisor Contact Lens Diabetes Education 04/22/[address] [place] [address] 133484 Supervisor Contact Lens Nutrition 04/22/21 Stephie Mahoney MD [address] [place] [address] 340135 Assigned Endocrinology Provider 05/08/21 Olga Garcia, RN Specialty Director Search INTERNAL MEDICINE - ENDOCRINOLOGY, DIABETES & METABOLISM 09/29/22 Junior Chavira MD [address] [place], [place] [address] Cardiovascular Disease 05/29/24 documented as of this encounter
--- OUTSIDE RECORDS SUMMARY | 2024-07-02 08:21 | XMS_ITS | Encounter Summary ---
Author Organization [place] Address [address] [place] [address]. [place] [address] Care Team Providers Care Psychologist Personnel Name Role Phone Wilber Vidales MD Primary Care Provider + Wilber Vidales MD Unavailable [phone] Stephie Mahoney MD Unavailable [phone] Federica Foster RN Unavailable [phone] Unavailable [phone] Stephie Mahoney MD Unavailable [phone] Olga Garcia RN Unavailable [phone] Junior Chavira MD Unavailable [phone] Encounter Details Date Type Department Care Team (Late st Contact Info) Description 06/10/2024 8:15 AM CDT Lab [facility] [address] [place] [address] Type 1 diabetes mellitus with hyperglycemia (H) [...] often do you attend chur ch or denominational services? More than 4 times per year 07/12/2023 Do you belong to any clubs o r organizations such as spiritism groups, unions, fraternal or athletic groups, or [...] Answer Date Recorded PHQ-2 Score 0 11/23/2023 [facility] Occup[facility] ional Health - Occupational [...] in an abandoned building, in an overnight skilled nursing, or couch-surfing.) Yes 07/12/2023 Are you worried [...] AM CDT 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 REFRACTORY TECHNICIAN Gender Identity Male 03/03/2019 9:24 PM CDT Sexual Orientation Straight 03/03/2019 9: 24 PM CDT documented as of this encounter Plan of Treatment Upcoming Encounters Date Type Department Care Team (Late st Contact Info) Description 07/11/2024 8:00 AM REFRACTORY TECHNICIAN Office Visit [facility] Heart [facility] [address] [facility] [address] [place] [address] Junior Chavira MD [address] [place] [address] 07/30/2024 7:30 AM REFRACTORY TECHNICIAN Appointment [facility] Specialty Care [address] [facility] [address] [place] [address] Candy Trivedi MD [address] [place] [address] 08/07/2024 1:30 PM REFRACTORY TECHNICIAN Virtual Visit [facility] Diabetes Education [address] [phone] Stephie Mahoney MD [address] [place] [address] Federica Foster RN [address] [place] [address] 800215 01/09/2025 8:00 AM CDT Lab [facility] Laboratory [address] [place] [phone] 01/16/2025 3:30 PM CDT Virtual Visit [facility] Endocrinology Clinic [address] [phone] Stephie Mahoney MD [address] [place] [address] 711305 06/05/2025 12:30 PM CDT Office Visit [facility] Endocrinology Clinic [address] [phone] Stephie Mahoney MD [address] [place] [address] [phone] documented as of this encounter Procedures Procedure Name Priority Date/Time Associated Diagnosis Comments OSMOLALITY Routine 06/10/2024 8:22 AM CDT Type 1 diabetes mellitus with hyperglycemia (H) CORTISOL Routine 06/10/2024 8:22 AM CDT Type 1 diabetes mellitus with hyperglycemia (H) BASIC METABOLIC PANEL Routine 06/10/2024 8:22 AM CDT Type 1 diabetes mellitus with hyperglycemia (H) documented in this encounter Results * Osmolality (06/10/2024 8:22 AM CDT) Osmolality [...] - BLOOD ORDERABLES Final Result [facility] [place] [facility] [address] [facility], [address] [place] [phone] * (ABNORMAL) Basic metabolic panel (06/10/2024 8:22 AM CDT) Pathologist [facility] Sodium 135 135 - 145 mmol/L 06/10/2024 4:16 PM CDT [facility] Potassium 4.4 3.4 - 5.3 mmol/L 06/10/2024 4:16 PM CDT [facility] Chloride 95(L) 98 - 107 mmol/L 06/10/2024 4:16 PM CDT [facility] Carbon Dioxide (CO2) 31(H) 22 - 29 mmol/L 06/10/2024 4:16 PM CDT [facility] Anion Gap 9 7 - 15 mmol/L 06/10/2024 4:16 PM CDT [facility] Urea Nitrogen 14.4 8.0 - 23.0 mg/dL 06/10/2024 4:16 PM CDT [facility] Creatinine 0.90 0.67 - 1.17 mg/dL 06/10/2024 4:16 PM CDT [facility] GFR Estimate >90 >60 mL/min/1.7 3m2 06/10/2024 4:16 PM CDT [facility] Comment:eGFR calculated us2020 CKD-EPI equation. Calcium 9.1 8.8 - 10.4 mg/dL 06/10/2024 4:16 PM CDT [facility] Comment:Reference intervals for this test were updated on 03/04/2024 to reflect our healthy population more accurately. There may be differences in the flagging of prior results with similar values performed with this method. Those prior results can be interpreted in the context of the updated reference intervals. Glucose 216(H) 70 - 99 mg/dL 06/10/2024 4:16 PM CDT [facility] Blood BLOOD SPECIMEN / Unknown Venipuncture / Unknown 06/10/2024 8:22 AM CDT 06/10/2024 8:25 AM CDT Stephie Mahoney MD LAB - BLOOD ORDERABLES Final Result Performing Organization Address City/[facility]/ZIP Co de Phone Number [facility] [place] [facility] [address] [facility], [address] * Cortisol (06/10/2024 8:22 AM CDT) [employer] Signature Cortisol 20.3 ug/dL 06/10/2024 4:16 PM CDT [facility] Comment: 6 months and older: 6 to 10 AM Cortisol Reference Range: ??4-22 ug/dL 4 to 8 PM Cortisol Reference Range: ??3-17 ug/dL Blood BLOOD SPECIMEN / Unknown Venipuncture / Unknown 06/10/2024 8:22 AM CDT 06/10/2024 8:25 AM CDT Stephie Mahoney MD LAB - BLOOD ORDERABLES Final Result [facility] [place] [facility] [address] [facility], [address] documented in this encounter Visit Diagnoses Diagnosis Type 1 diabetes mellitus with hyperglycemia (H) Type I (juvenile type) diabetes mellitus without mention of complication, not stated as uncontrolled documented in this encounter Care Teams Psychologist Personnel Relationship Specialty [place] [address] [place] [address] PCP - General Family Practice 11/21/16 [place] [address] [place] [address] Assigned PCP 01/30/21 Stephie Mahoney MD [address] [place] [address] [phone] Endocrinology, Diabetes, and Metabolism 04/22/21 Federica Foster RN [address] [place] [address] 664865 Earth Mover Diabetes Education 04/22/[address] [place] [address] [phone] Earth Mover Nutrition 04/22/21 Stephie Mahoney MD [address] [place] [address] 413675 Assigned Endocrinology Provider 05/08/21 Olga Garcia, RN Specialty Coin Dealer INTERNAL MEDICINE - ENDOCRINOLOGY, DIABETES & METABOLISM 09/29/22 Junior Chavira MD [address] [facility] [facility] [address] [place] [address] Cardiovascular Disease 05/29/24 documented as of this encounter
--- OUTSIDE RECORDS SUMMARY | 2024-07-02 08:21 | XMS_ITS | Encounter Summary ---
Author Organization [place] Address [address] [place] [address]. [place] [address] Care Team Providers Care Telecommunications Line Installer Name Role Phone Wilber Vidales MD Primary Care Provider + Wilber Vidales MD Unavailable [phone] Stephie Mahoney MD Unavailable [phone] Federica Foster RN Unavailable [phone] Unavailable [phone] Stephie Mahoney MD Unavailable [phone] Olga Garcia RN Unavailable [phone] Junior Chavira MD Unavailable [phone] Encounter Details Date Type Department Care Team (Late st Contact Info) Description 06/17/2024 [facility] Only [facility] [address] [place] [address] [place] [address] [place] [address] Social History Tobacco Use Types Packs/Day Years [...] often do you attend chur ch or congregation services? More than 4 times per year 07/12/2023 Do you belong to any clubs o r organizations such as orthodoxy groups, unions, fraternal or athletic groups, or [...] PHQ-2 Score 0 11/23/2023 [facility] - Occupational Stress Questionnaire Answer Date [...] in an abandoned building, in an overnight intermediate, or couch-surfing.) Yes 07/12/2023 Are you worried [...] AM CDT 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 MASTIC MAN Gender Identity Male 03/03/2019 9:24 PM CDT Sexual Orientation Straight 03/03/2019 9: 24 PM CDT documented as of this encounter Plan of Treatment Upcoming Encounters Date Type Department Care Team (Late st Contact Info) Description 07/11/2024 8:00 AM MASTIC MAN Office Visit [facility] [address] [facility] [address] [place] [address] Junior Chavira MD [address] [place] [address] 07/30/2024 7:30 AM MASTIC MAN Appointment M [facility] Specialty Care [address] [place] [phone] Candy Trivedi MD [address] [facility] [address] [place] [address] 08/07/2024 1:30 PM MASTIC MAN Virtual Visit [facility] Diabetes Education [address] [phone] Stephie Mahoney MD [address] [place] [address] [phone] Federica Foster RN 420 [place], [place] 09[address] 01/09/2025 8:00 AM CDT Lab [facility] Laboratory [address] [place] [phone] 01/16/2025 3:30 PM CDT Virtual Visit [facility] Endocrinology Clinic [address] [phone] Stephie Mahoney MD [address] [place] [address] 026535 06/05/2025 12:30 PM CDT Office Visit [facility] Endocrinology Clinic [address] [phone] Stephie Mahoney MD [address] [place] [address] 375395 documented as of this encounter Visit Diagnoses Not on filedocumented in this encounter Care Teams Telecommunications Line Installer Relationship Specialty [place] [address] [place], [place] [phone] PCP - General Family Practice 11/21/16 [place] [address] [address] [facility] [place] [address] Assigned PCP 01/30/21 Stephie Mahoney MD [address] 928385 Endocrinology, Diabetes, and Metabolism 04/22/21 Federica Foster, RN 420 [place], [place] 697915 Can Patcher Diabetes Education 04/22/[address] [facility] [address] 268184 Can [employer]cher Nutrition 04/22/21 Stephie Mahoney MD [address] [place] [address] 312265 Assigned Endocrinology Provider 05/08/21 Olga Garcia, RN Specialty Cloth Dye Range Operator INTERNAL MEDICINE - ENDOCRINOLOGY, DIABETES & METABOLISM 09/29/22 Junior Chavira MD [address] [place] [address] Cardiovascular Disease 05/29/24 documented as of this encounter
--- OUTSIDE RECORDS SUMMARY | 2024-07-02 08:22 | XMS_ITS | Encounter Summary ---
Author Organization [place] Address [address] [place] [address]. [place] [address] Care Team Providers Care Area Director Of Home Health Sales Name Role Phone Wilber Vidales MD Primary Care Provider + Wilber Vidales MD Unavailable [phone] Stephie Mahoney MD Unavailable [phone] Federica Foster RN Unavailable [phone] Unavailable [phone] Stephie Mahoney MD Unavailable [phone] Olga Garcia RN Unavailable [phone] Junior Chavira MD Unavailable [phone] Encounter Details Date Type Department Care Team (Late st Contact Info) Description 05/27/2024 Telephone [facility] Endocrinology Clinic [address] 3rd [place] [address] Rebecca Harvey, RN Social History Tobacco Use Types Packs/Day [...] often do you attend chur ch or jehovah's witness services? More than 4 times per year 07/12/2023 Do you belong to any clubs o r organizations such as presybeterian groups, unions, fraternal or athletic groups, or [...] Answer Date Recorded PHQ-2 Score 0 11/23/2023 [facility] of Occupat ional Health - Occupational [...] in an abandoned building, in an overnight snf, or couch-surfing.) Yes 07/12/2023 Are you worried [...] AM CDT 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 DIRECTOR REGULATORY AGENCY Gender Identity Male 03/03/2019 9:24 PM CDT Sexual Orientation Straight 03/03/2019 9: 24 PM CDT documented as of this encounter Miscellaneous Notes * Telephone Encounter - Rebecca Harvey RN - 05/27/2024 3:34 PM CDT ----- Message from Olga Lang sent at 05/26/2024 12:17 PM CDT ----- Regarding: FW: please call pt and ask ----- Message ----- From: Stephie Mahoney MD Sent: 05/22/2024 9:50 PM CDT To: Med Specialties Endo Triage- Subject: please call pt and ask Please call pt and ask about this below - Gerrir Sanyt Here are your labs which look really good -the main finding is that your LDL is a bit higher. Are you taking your atorvastatin/Lipitor? Did you miss any doses? Everything else looked great. If you have any questions, please feel free to contact my nurse at [phone] select option #3 for triage nurse or option #1 for scheduling related questions. Regards Stephie Mahoney MD documented in this encounter Plan of Treatment Upcoming Encounters Date Type Department Care Team (Late st Contact Info) Description 07/11/2024 8:00 AM DIRECTOR REGULATORY AGENCY Office Visit [facility] Heart [facility] [address] [facility] [address] [place] [phone] Junior Chavira MD [address] [place], [place] [address] 07/30/2024 7:30 AM DIRECTOR REGULATORY AGENCY Appointment M [facility] Specialty Care [address] [facility] [address] [place] [phone] Candy Trivedi MD [address] [place], [place] 8[address] 08/07/2024 1:30 PM DIRECTOR REGULATORY AGENCY Virtual Visit [facility] Diabetes Education [place] [address] [facility] 3rd [place] [phone] Stephie Mahoney MD [address] [facility] [place], [place] 7467[address] Federica Foster RN 420 [place], [place] 323025 01/09/2025 8:00 AM CDT Lab [facility] Laboratory [address] [place] [address] 01/16/2025 3:30 PM CDT Virtual Visit [facility] Endocrinology Clinic [address] [phone] Stephie Mahoney MD [address] [place] [address] 013935 06/05/2025 12:30 PM CDT Office Visit [facility] Endocrinology Clinic [address] [phone] Stephie Mahoney MD [address] [place] [address] 165175 documented as of this encounter Visit Diagnoses Not on filedocumented in this encounter Care Teams Area Director Of Home Health Sales Relationship Specialty [place] [address] [place] [address] PCP - General Family Practice 11/21/16 [place] [address] [place] [address] Assigned PCP 01/30/21 Stephie Mahoney MD [address] [place] [address] 655785 Endocrinology, Diabetes, and Metabolism 04/22/21 Federica Foster, RN [address] [place] [address] [phone] Truck Spotter Diabetes Education 04/22/[address] [place] [address] Truck Spotter Nutrition 04/22/21 Stephie Mahoney MD [address] [facility] [address] [place] [address] Assigned Endocrinology Provider 05/08/21 Olga Garcia, RN Specialty Hair Designer INTERNAL MEDICINE - ENDOCRINOLOGY, DIABETES & METABOLISM 09/29/22 Junior Chavira MD [address] [place] [id number] Cardiovascular Disease 05/29/24 documented as of this encounter
--- OUTSIDE RECORDS SUMMARY | 2024-07-02 08:22 | XMS_ITS | Encounter Summary ---
Author Organization [facility] Address [address] [place] [address]. [place] [address] Care Team Providers Care Brown Stock Washer Name Role Phone Wilber Vidales MD Primary Care Provider + Wilber Vidales MD Unavailable [phone] Stephie Mahoney MD Unavailable [phone] Federica Foster RN Unavailable [phone] Unavailable [phone] Stephie Mahoney MD Unavailable [phone] Olga Garcia RN Unavailable [phone] Junior Chavira MD Unavailable [phone] Encounter Details Date Type Department Care Team (Late st Contact Info) Description 05/27/2024 Telephone [facility]ology [facility] [address] [place] [address] Rebecca Harvey, RN Social History [...] often do you attend chur ch or zoroastrian services? More than 4 times per year 07/12/2023 Do you belong to any clubs o r organizations such as baptist groups, unions, fraternal or athletic groups, or [...] Answer Date Recorded PHQ-2 Score 0 11/23/2023 [facility] of Occupat ional Health - Occupational Stress [...] in an abandoned building, in an overnight penitentiary, or couch-surfing.) Yes 07/12/2023 Are you worried [...] AM CDT 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 MILLER FIRST Gender Identity Male 03/03/2019 9:24 PM CDT Sexual Orientation Straight 03/03/2019 9: 24 PM CDT documented as of this encounter Miscellaneous Notes * Telephone Encounter - Rebecca Harvey RN - 05/27/2024 3:35 PM CDT Santy called and he stopped the atorvastatin months ago. 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 He is agreeable to another form of treatment that's not a statin.. Visit is Wednesday 05/30 to discuss with you in person .Rebecca Harvey RN on 05/27/2024t 3:39 PM . * Telephone Encounter - Rebecca Harvey, RN - 05/27/2024 3:35 PM CDT ----- Message from Olga Lang sent at 05/26/2024 12:17 PM CDT ----- Regarding: FW: please call pt and ask ----- Message ----- From: Stephie Mahoney MD Sent: 05/22/2024 9:50 PM CDT To: [facility] Triage- Subject: please call pt and ask Please call pt and ask about this below - Dear Santy Here are your labs which look really good -the main finding is that your LDL is a bit higher. Are you taking your atorvastatin/Lipitor? Did you miss any doses? Everything else looked great. If you have any questions, please feel free to contact my nurse at [phone] select option #3 for triage nurse or option #1 for scheduling related questions. Regards Stephie Mahoney MD documented in this encounter Plan of Treatment Upcoming Encounters Date Type Department Care Team (Late st Contact Info) Description 07/11/2024 8:00 AM MILLER FIRST Office Visit [facility] [place] [address] [facility] [address] [place] [phone] Junior Chavira MD [address] [place], [place] [address] 07/30/2024 7:30 AM MILLER FIRST Appointment M [facility] Specialty Care [address] [facility] [address] [place] [phone] Candy Trivedi MD [address] [place], [place] [address] 08/07/2024 1:30 PM MILLER FIRST Virtual Visit [facility] Diabetes Education [address] [place] [phone] Stephie Mahoney MD [address] [place] [address] Federica Foster, RN 420 [place] [address] 01/09/2025 8:00 AM CDT Lab [facility] [address] [place] [phone] 01/16/2025 3:30 PM CDT Virtual Visit [facility] Endocrinology [address] [phone] Stephie Mahoney MD [address] [place] [address] 06/05/2025 12:30 PM CDT Office Visit [address] [phone] Stephie Mahoney MD [address] [place] [address] documented as of this encounter Visit Diagnoses Not on filedocumented in this encounter Care Teams Brown Stock Washer Relationship Specialty [place] [address] [place] [address] PCP - General Family Practice 11/21/16 [place] [address] [place] [address] Assigned PCP 01/30/21 Stephie Mahoney MD [address] [place] [address] Endocrinology, Diabetes, and Metabolism 04/22/21 Federica Foster RN 420 [place], [place] [address] Clearing Supervisor Diabetes Education 04/22/[address] [facility] [place] [address] Clearing Supervisor Nutrition 04/22/21 Stephie Mahoney MD 420 [facility] [address] [place], [place] [address] Assigned Endocrinology Provider 05/08/21 Olga Garcia RN Specialty Treating Machine Operator INTERNAL MEDICINE - ENDOCRINOLOGY, DIABETES & METABOLISM 09/29/22 Junior Chavira MD [address] [facility] [address] [place], [place] [id number] Cardiovascular Disease 05/29/24 documented as of this encounter
--- OUTSIDE RECORDS SUMMARY | 2024-07-02 08:22 | XMS_ITS | Encounter Summary ---
Author Organization [place] Address [address] [place] [address]. [place] [address] Care Team Providers Care Perinatal Nurse Name Role Phone Wilber Vidales MD Primary Care Provider + Wilber Vidales MD Unavailable [phone] Stephie Mahoney MD Unavailable [phone] Federica Foster RN Unavailable [phone] Unavailable [phone] Stephie Mahoney MD Unavailable [phone] Olga Garcia RN Unavailable [phone] Encounter Details Date Type Department Care Team (Latest Contact Info) Description 05/24/2024 Travel Social History Tobacco Use Types Packs/Day [...] week 07/12/2023 How often do you attend [facility] or islam services? More than 4 times per year 07/12/2023 Do you belong to any clubs o r organizations such as scientologist groups, unions, fraternal or athletic groups, or [...] Answer Date Recorded PHQ-2 Score 0 11/23/2023 [facility] of Occupat ional Health - Occupational [...] Answer Date Recorded Do you have housing? (Jayin g is defined as stable permanent housing and does not include staying ouside in a car, in a tent, in an abandoned building, in an overnight detention, or couch-surfing.) Yes 07/12/2023 Are you worried [...] AM CDT 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 SENIOR WEB DEVELOPER Gender Identity Male 03/03/2019 9:24 PM CDT Sexual Orientation Straight 03/03/2019 9: 24 PM CDT documented as of this encounter Plan of Treatment Upcoming Encounters Date Type Department Care Team (Late st Contact Info) Description 07/11/2024 8:00 AM SENIOR WEB DEVELOPER Office Visit [facility] [address] [facility] [address] [place] [phone] Junior Chavira MD [address] [place] [id number] 07/30/2024 7:30 AM SENIOR WEB DEVELOPER Appointment [facility] Specialty Care [address] [place] [address] 160 [place] [phone] Candy Trivedi MD [address] [place] [address] 08/07/2024 1:30 PM SENIOR WEB DEVELOPER Virtual Visit [facility] Diabetes Education [address] [phone] Stephie Mahoney MD [address] [place] [address] Federica Foster RN 420 [place] [address] 01/09/2025 8:00 AM CDT Lab [facility] [address] [place] [phone] 01/16/2025 3:30 PM CDT Virtual Visit [facility] Endocrinology Clinic [address] [phone] Stephie Mahoney MD [address] [place] [address] 06/05/2025 12:30 PM CDT Office Visit [facility] Endocrinology Clinic [address] [phone] Stephie Mahoney MD [address] [place] [address] documented as of this encounter Visit Diagnoses Not on filedocumented in this encounter Care Teams Perinatal Nurse Relationship Specialty [place] [address] [place] [address] PCP - General Family Practice 11/21/16 [place] [address] [place] [address] Assigned PCP 01/30/21 Stephie Mahoney MD [address] [place] [address] Endocrinology, Diabetes, and Metabolism 04/22/21 Federica Foster, RN [address] [place] [address] Hspt Tutor Diabetes Education 04/22/[address] [place] [address] Hspt Tutor Nutrition 04/22/21 Stephie Mahoney MD [address] [place] [address] Assigned Endocrinology Provider 05/08/21 Olga Garcia RN Specialty Roll Up Machine Operator INTERNAL MEDICINE - ENDOCRINOLOGY, DIABETES & METABOLISM 09/29/22 documented as of this encounter
--- OUTSIDE RECORDS SUMMARY | 2024-07-02 08:22 | XMS_ITS | Encounter Summary ---
Author Organization [facility] Address [address] [place] [address]. [place] [address] Care Team Providers Care Dowel Inspector Name Role Phone Wilber Vidales MD Primary Care Provider + Wilber Vidales MD Unavailable [phone] Stephie Mahoney MD Unavailable [phone] Federica Foster RN Unavailable [phone] Unavailable [phone] Stephie Mahoney MD Unavailable [phone] Olga Garcia RN Unavailable [phone] Junior Chavira MD Unavailable [phone] Encounter Details Date Type Department Care Team (Latest Contact Info) Description 05/30/2024 Travel Social History Tobacco Use Types Packs/Day [...] How often do you attend [facility] or jehovah's witness services? More than 4 times per year 07/12/2023 Do you belong to any clubs o r organizations such as rastafari groups, unions, fraternal or athletic groups, or [...] Answer Date Recorded PHQ-2 Score 0 11/23/2023 [facility] of Occupat ional [facility] - Occupational Stress Questionnaire Answer Date [...] in an abandoned building, in an overnight [place] [facility], or couch-surfing.) Yes 07/12/2023 Are you worried [...] AM CDT 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 INSTRUMENTATION DESIGNER Gender Identity Male 03/03/2019 9:24 PM CDT Sexual Orientation Straight 03/03/2019 9: 24 PM CDT documented as of this encounter Plan of Treatment Upcoming Encounters Date Type Department Care Team (Late st Contact Info) Description 07/11/2024 8:00 AM INSTRUMENTATION DESIGNER Office Visit [facility] [place] [address] [place] [address] [address] [place] [phone] Junior Chavira MD [address] [place] [address] 07/30/2024 7:30 AM INSTRUMENTATION DESIGNER Appointment [facility] Specialty Care [address] [place] [address] [address] [place] [phone] Candy Trivedi MD [address] [place] [id number] 08/07/2024 1:30 PM INSTRUMENTATION DESIGNER Virtual Visit [facility] Diabetes Education [address] [phone] Stephie Mahoney MD [address] [place] [address] Federica Foster RN 420 [place] [address] 01/09/2025 8:00 AM CDT Lab [facility] [address] [place] [phone] 01/16/2025 3:30 PM CDT Virtual Visit [facility] Endocrinology Clinic [address] [phone] Stephie Mahoney MD [address] [place] [address] 06/05/2025 12:30 PM CDT Office Visit [facility] Endocrinology Clinic [address] [phone] Stephie Mahoney MD [address] [place] [address] 050615 documented as of this encounter Visit Diagnoses Not on filedocumented in this encounter Care Teams Dowel Inspector Relationship Specialty [place] [address] [place] [address] PCP - General Family Practice 11/21/16 [place] [address] [place] [address] [address] Assigned PCP 01/30/21 Stephie Mahoney MD [address] 688[address] Endocrinology, Diabetes, and Metabolism 04/22/21 Federica Foster, RN 420 [place], [place] [address] Fur Matcher Diabetes Education 04/22/[address] [place] [address] 084984 Fur Matcher Nutrition 04/22/21 Stephie Mahoney MD [address] 257985 Assigned Endocrinology Provider 05/08/21 Olga Garcia, RN Specialty Ruling Machine Operator INTERNAL MEDICINE - ENDOCRINOLOGY, DIABETES & METABOLISM 09/29/22 Junior Chavira MD [address] [place], [place] [address] Cardiovascular Disease 05/29/24 documented as of this encounter
--- OUTSIDE RECORDS SUMMARY | 2024-07-02 08:22 | XMS_ITS | Encounter Summary ---
Author Organization [place] Address [address] [place] [address]. [place] [address] Care Team Providers Care Aluminizer Name Role Phone Wilber Vidales MD Primary Care Provider + Wilber Vidales MD Unavailable [phone] Stephie Mahoney MD Unavailable [phone] Federica Foster RN Unavailable [phone] Unavailable [phone] Stephie Mahoney MD Unavailable [phone] Olga Garcia RN Unavailable [phone] Reason for Visit * Reason Comments lightheaded Encounter Details Date Type Department Care Team (Late st Contact Info) Description 05/24/2024 11:10 AM CDT - 05/24/2024 1:29 PM CDT Emergency [facility] Emergency Dept [address] [place] [address] Stanton Milian MD [facility] [address], [facility] [address] [place] [address] Near syncope; Hyponatremia Discharge Disposition: Home or Self Care Social History Tobacco Use Types Packs/Day Years [...] How often do you attend chur or catholic services? 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 Gender Identity Male 03/03/2019 9:24 PM CDT Sexual Orientation Straight 03/03/2019 9: 24 PM CDT documented as of this encounter Last Filed Vital Signs Vital Sign Reading Time Taken Comments Blood Pressure 139/79 05/24/2024 1:00 PM CDT Pulse 58 05/24/2024 1:00 PM CDT Temperature 36.3 ??C (97.4 ??F) 05/24/2024 11:32 AM C DT Respiratory Rate 20 05/24/2024 1:00 PM CDT Oxygen Saturation 99% 05/24/2024 1:00 PM CDT Inhaled Oxygen Concentration - - Weight - - Height - - Body Mass Index - - documented in this encounter Discharge Instructions * Discharge Instructions* Stanton Milian MD - 05/24/2024 1:18 PM CDT Return to the emergency department if symptoms are worsening, become concerning, or for any other concerns. Follow-up with your doctor in 2-3 and sooner if needed. * Attachments The following attachments cannot be sent through Care Everywhere. * Hyponatremia (Salvadorean) documented in this encounter Medications at Time of Discharge acetone urine (KETOSTIX) test stripIndications:T ype 1 diabetes mellitus with hyperglycemia (H) Use to check urine ketones in the event of pump failure or unexplained blood glucoses over 250 and not resolving. 25 strip 3 08/21/2022 apixaban ANTICOAGULANT (ELIQUIS ANTICOAGULANT) 5 MG tabletIndications: Paroxysmal atrial fibrillation (H) Take 1 tablet (5 mg) by mouth 2 times daily 180 tablet 3 07/19/2023 atorvastatin (LIPITOR) 40 MG tabletIndications: Hyperlipidemia LDL goal <100 Take 1 tablet (40 mg) by mouth at bedtime 90 tablet 3 11/23/2023 carvedilol (COREG) 12.5 MG tabletIndications: Benign essential hypertension Take 1 tablet (12.5 mg) by mouth 2 times daily (with meals) 180 tablet 3 11/23/2023 cholecalciferol (VITAMIN D3) 125 mcg (5000 units) capsule Take by mouth daily eszopiclone (LUNESTA) 3 MG tablet ESZOPICLONE 3 MG TABS 01/02/2023 insulin aspart (NOVOLOG VIAL) 100 UNITS/ML vialIndications:Ty pe 1 diabetes mellitus with hyperglycemia (H) Uses about 80 units per day 80 mL 3 11/23/2023 insulin glargine (LANTUS PEN) 100 UNIT/ML penIndications:Typ e 1 diabetes mellitus with hyperglycemia (H) 20 units if pod fails 3 mL 11/23/2023 insulin syringe-needle U-100 (30G X 1/2 0.3 ML) 30G X 1/2 0.3 ML miscellaneousIndic ations:Type 1 diabetes mellitus with hyperglycemia (H) Use in the event of pump failure and need to administer manual injection. 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 by mouth daily sildenafil (VIAGRA) 100 MG tabletIndications: Vasculogenic erectile dysfunction, unspecified vasculogenic erectile dysfunction type Take 1 tablet (100 mg) by mouth daily as needed (30 minutes prior to sexual activity) 12 tablet 11 07/19/2023 tiZANidine (ZANAFLEX) 2 MG tablet TAKE 1-2 TABLETS BY MOUTH EVERY NIGHT AT BEDTIME NEEDED DIRECTED FOR LOW BACK PAIN* 03/13/2024 vitamin C (ASCORBIC ACID) 1000 MG TABS Take 1 tablet by mouth daily 08/20/2020 zinc gluconate 50 MG tablet Take 50 mg by mouth daily 01/19/2020 Continuous Blood Gluc Sensor (DEXCOM G6 SENSOR) MISCIndications:Ty pe 1 diabetes mellitus without complication (H) Change every 10 days. 3 each 11 11/23/2023 4 Continuous Blood Gluc Transmit (DEXCOM G6 TRANSMITTER) MISCIndications:Ty pe 1 diabetes mellitus without complication (H) Change every 3 months. 1 each 11/23/2023 4 Insulin Disposable Pump (OMNIPOD 5 G6 PODS, GEN 5,) MISCIndications:Ty pe 1 diabetes mellitus with hyperglycemia (H) 1 each every other day 3 month supply. 40 each 11/23/2023 4 lisinopril (ZESTRIL) 20 MG tabletIndications: Type 1 diabetes mellitus without complication (H) Take 1 tablet (20 mg) by mouth daily 90 tablet 3 11/23/2023 4 documented as of this encounter Progress Notes * Patt Obrien RN - 05/24/2024 1:14 PM CDT Pt ambulated to restroom independently. States his legs feel, weak. Steady gait, denies dizziness or lightheadedness. documented in this encounter ED Notes * Tamera Hurst - 05/24/2024 11:30 AM CDT Placed Pt. on monitor (5-lead continous ECG, pulse ox, BP cuff) EKG complete. Pt complained of being cold, warm blanket brought to pt and print and pattern designer socks put on. * Stanton Milian MD - 05/24/2024 11:15 AM CDT Emergency Department Note History of Present Illness Chief Complaint lightheaded HPI Santy Glez is a 63 year old male, anticoagulated with Eliquis, with history of a-fib, type 1diabetes on insulin pump, hypertension, and heart failure who presents to the ED via EMS for evaluation of lightheadedness. Per EMS report, the patient was sitting in a chair at home when he had a sudden onset of lightheadedness. He got up and walked to the bathroom, but felt unsteady. His checked his blood pressure and the systolic was in the 60's. Patient is a type 1 diabetic with an insulin pump and recent issues with hypoglycemia recently, but his Dexcom read 140. Patient states that he is feeling better now. He is unsure what brought this episode on or if he's had similar episodes before. He notes that he has been drinking more water than normal and he didn't eat much this morningbecause he wasn't hungry. Patient also endorses lower right back pain, but this started a few months ago and is worse with bending. He is not taking any pain medications for this pain. Denies palpitations, but mentions that his heart rate has been low. Denies chest pain, shortness of breath, abdominal pain, headache, vision changes, numbness or weakness, fever, cough, or recent illness. Patient is on a blood thinner and denies recent medication changes. Of note, patient has a history of aortic valve replacement and astrocytoma removal. He denies having any similar symptoms to when he had his brain tumor. Denies recent head injury. Independent Historian EMS as detailed above. thinks that he may have accidentally taken an extra dose of his lisinopril this morning. Review of External Notes I reviewed an office note from November 22 discussing his type 1 diabetes. ECHO 07/23/2023 EF 60-65% Past Medical History Medical History and Problem List Hypertension Bilateral carotid artery stenosis Brain tumor Cancer Chronic systolic heart failure Type 1 diabetes Astrocytoma Lateral epicondylitis of left elbow Nonrheumatic aortic valve stenosis Obstructive sleep apnea Paroxysmal atrial fibrillation Seizures Vasculogenic erectile dysfunction Hyponatremia Covid-19 Basal cell carcinoma Epilepsy Heart murmur Medications Eliquis Lipitor Coreg Lantus Pen Lamictal Zestril Metformin Provigil Viagra Keppra Sonata Trileptal Aspirin 81 mg Skippers Deltasone Surgical History Appendectomy Mohs surgery Brain surgery x2 Colonoscopy with polypectomy x2 Coronary angiogram Eye surgery Aortic valve replacement Tonsillectomy Uvulectomy Physical Exam Patient Vitals for the past 24 hrs: BP Temp Temp src Pulse Resp SpO2 05/24/24 1240 121/76 -- -- 57 -- 95 % 05/24/24 1234 -- -- -- 57 11 98 % 05/24/24 1155 -- -- -- 55 22 98 % 05/24/24 1132 -- 97.4 ??F (36.3 ??C) Oral -- -- -- 05/24/24 1117 124/82 -- -- 51 14 98 % Physical Exam GENERAL: Patient well-appearing HEAD: Atraumatic. Healed surgical scar on the top of his scalp. EYES: Anicteric. PERRL NOSE: No active bleeding MOUTH: Moist mucosa THROAT: Patent airway. NECK: No rigidity CV: RRR, no murmurs, rubs or gallops PULM: CTAB with good aeration; no retractions, rales, rhonchi, or wheezing ABD: Soft, nontender, nondistended, no guarding, no peritoneal signs DERM: No rash. Skin warm and dry EXTREMITY: Moving all extremities without difficulty. No calf tenderness or peripheral edema VASCULAR: Symmetric pulses bilaterally NEURO: A,Ox3. CN 2-12 fully intact. Strength 5/5 bilateral LE/UE. Sensation fully intact to light touch symmetrically bilateral LE/UE. Normal smilzp-zu-sarn and heel to ling. No nystagmus. No ataxia. Diagnostics Lab Results Labs Ordered and Resulted from Time of ED Arrival to Time of ED Departure BASIC METABOLIC PANEL - Abnormal Result Value Sodium 131 (*) Potassium 4.1 Chloride 95 (*) Carbon Dioxide (CO2) 29 Anion Gap 7 Urea Nitrogen 15.2 Creatinine 0.95 GFR Estimate >90 Calcium 8.7 (*) Glucose 166 (*) CBC WITH PLATELETS AND DIFFERENTIAL - Abnormal WBC Count 4.3 RBC Count 4.55 Hemoglobin 13.9 Hematocrit 39.5 (*) MCV 87 MCH 30.5 MCHC 35.2 RDW 11.7 Platelet Count 142 (*) % Neutrophils 48 % Lymphocytes 28 % Monocytes 10 % Eosinophils 14 % Basophils 1 % Immature Granulocytes 0 NRBCs per 100 WBC 0 Absolute Neutrophils 2.1 Absolute Lymphocytes 1.2 Absolute Monocytes 0.4 Absolute Eosinophils 0.6 Absolute Basophils 0.0 Absolute Immature Granulocytes 0.0 Absolute NRBCs 0.0 GLUCOSE BY METER - Abnormal GLUCOSE BY METER POCT 159 (*) Imaging None EKG ECG taken at 1119, ECG read at 1131 Sinus bradycardia Minimal voltage criteria for LVH, may be normal variant (Sokolow-Meyer) NO MICHEAL. NO STD. Rate 53 bpm. DE interval 156 ms. QRS duration 96 ms. QT/QTc 448/420 ms. P-R-T axes 50 33 49. Independent Interpretation None ED Course Medications Administered Medications sodium chloride 0.9% BOLUS 1,000 mL (1,000 mLs Intravenous $New Bag 05/24/24 1130) Procedures None Discussion of Management None ED Course ED Course as of 05/24/24 1318 Sat May 24, 2024 1115 I obtained history and examined the patient as noted above. 1317 I rechecked and updated the patient. Additional Documentation None Medical Decision Making / Diagnosis [facility] Diagnoses: None MIPS None MDM Santy Glez is a 63 year old male Patient presenting after episode of near syncope. Chronic conditions complicating - CHF, DM. DDx considered, but not limited to cardiogenic syncope, bleed, vascular injury, CVA, however evaluation not consistent with these etiologies. Vital signs unremarkable. Physical exam unremarkable. ECG independently interpreted - unremarkable. Performed period of observation on manager cardiac cath without evidence of arrhythmia or acute deterioration. Basic labs showing mild hyponatremia and mild hypocalcemia. Baseline thrombocytopenia. Otherwise nonacute. Doubt these are the cause of his symptoms. Ultimately, after observation and IV fluids, patient persistently is asymptomatic and I discussed with him and his and they feel well to go home. They feel well to follow-up with his primary care doctor and do not want to be further evaluated. Patient did have a prodrome of symptoms with low blood pressure at home and potentially took an extra BP medication on an empty stomach, so this is reasonable. Patient was evaluated for acute medical emergencies. Based on my clinical assessment, I do not think any further acute management or work-up is required. Patient stable for discharge. Given strict return precautions. All questions answered. Patient content with plan. Recommended PCP follow-up in 2-3 days. Disposition The patient was discharged. Diagnosis ICD-10-CM 1. Near syncope R55 2. Hyponatremia E87.1 Discharge Medications New Prescriptions No medications on file Scribe Disclosure: YARI Jameson, am serving as a scribe at 11:26 AM on 05/24/2024 to document services personally performed by Stanton Milian MD based on my observations and the provider's statements to me. Stanton Milian MD 05/24/24 1426 * Samreen Ambrosio RN - 05/24/2024 11:13 AM CDT Arrives to ED via EMS. Pt was sitting in a chair and suddenly started to feel lightheaded like he was going to pass out. Pt got up to walk to the bathroom and was able to walk there but felt unsteadyon his feet. checked his BP and sytolic number was in the 60's. Pt has type 1 diabetes and dexcom meter read 140 at time of incident, but pt reports having issues with low blood sugar lately. Pthas an insulin pump in place. Hx aortic valve replacement. Paramedics started an IV and administered 500mls fluid. * Kelsi Patricia, RN - 05/24/2024 11:10 AM CDT Bed: ED03 Expected date: 05/24/24 Expected time: 11:06 AM Means of arrival: Comments: [id number] documented in this encounter Plan of Treatment Upcoming Encounters Date Type Department Care Team (Late st Contact Info) Description 07/11/2024 8:00 AM EPIC ANESTHESIA ANALYST Office Visit [facility] Heart [facility] [address] [facility] [address] [place] [phone] Junior Chavira MD [address] [place], [place] [phone] 07/30/2024 7:30 AM EPIC ANESTHESIA ANALYST Appointment [facility] Care [address] [facility] [address] [place] [phone] Candy Trivedi MD [address] [place] [address] 08/07/2024 1:30 PM EPIC ANESTHESIA ANALYST Virtual Visit [facility] Diabetes Education [place] [address] [facility] 3rd [place] [phone] Stephie Mahoney MD [address] [facility] [address] [place], [place] [address] Federica Foster RN [address] [place] [address] 01/09/2025 8:00 AM CDT Lab [facility] [address] [place] [address] 01/16/2025 3:30 PM CDT Virtual Visit [facility] Endocrinology Clinic [address] [phone] Stephie Mahoney MD [address] [place] [address] [phone] 06/05/2025 12:30 PM CDT Office Visit [facility] Endocrinology [address] [phone] Stephie Mahoney MD [address] [place] [phone] documented as of this encounter Procedures Procedure Name Priority Date/Time Associated Diagnosis Comments EXTRA TUBE STAT 05/24/2024 11:28 AM CDT EXTRA RED TOP TUBE STAT 05/24/2024 11 :28 AM CDT EXTRA BLUE TOP TUBE STAT 05/24/2024 1 1:28 AM CDT CBC WITH PLATELETS AND DIFFERENTIAL STAT 05/24/2024 11:28 AM CDT CBC WITH PLATELETS & DIFFERENTIAL STAT 05/24/2024 11:28 AM CDT BASIC METABOLIC PANEL STAT 05/24/2024 11:28 AM CDT GLUCOSE BY METER STAT 05/24/2024 11:2 7 AM CDT EKG 12-LEAD, TRACING ONLY STAT 05/24/2024 11:19 AM CDT documented in this encounter Results * Extra Red Top Tube (05/24/2024 11:28 AM CDT) [facility] Hold Specimen [facility] 05/24/2024 12:46 PM CDT [facility] LABORATORY Blood VENOUS LINE / Unknown Venipuncture / Unknown 05/24/2024 11:28 AM CDT 05/24/2024 11:32 AM CDT us Stanton Milian MD LAB - BLOOD ORDERABLES Final Res ult LABORATORY [facility] Acute Care Lab [address] Lab (1st floor, no room number) [place] [phone] [place] [address] * Extra Blue Top Tube (05/24/2024 11:28 AM CDT) Hold Specimen [facility] 05/24/2024 12:46 PM CDT [facility] LABORATORY Blood VENOUS LINE / Unknown Venipuncture / Unknown 05/24/2024 11:28 AM CDT 05/24/2024 11:32 AM CDT us Stanton Milian MD LAB - BLOOD ORDERABLES Final Res ult Performing Organization Address City/[facility]/ZIP Co de Phone Number [facility] Acute Care Lab [address] Lab (1st floor, no room number) [address] * (ABNORMAL) CBC with platelets and differential [...] BLOOD ORDERABLES Final Res ult RH LABORATORY [facility] Care Lab [address] Lab (1st floor, no room number) [place] [address], [facility] * (ABNORMAL) Basic metabolic panel (05/24/2024 11:28 AM CDT) Sodium 131(L) 135 - 145 mmol/L 05/24/2024 11:59 AM CDT LABORATORY Potassium 4.1 3.4 - 5.3 mmol/L 05/24/2024 11:59 AM CDT LABORATORY Chloride 95(L) 98 - 107 mmol/L 05/24/2024 11:59 AM CDT LABORATORY Carbon Dioxide (CO2) 29 22 - 29 mmol/L 05/24/2024 11:59 AM CDT LABORATORY Anion Gap 7 7 - 15 mmol/L 05/24/2024 11:59 AM CDT LABORATORY Urea Nitrogen 15.2 8.0 - 23.0 mg/dL 05/24/2024 11:59 AM CDT LABORATORY Creatinine 0.95 0.67 - 1.17 mg/dL 05/24/2024 11:59 AM CDT LABORATORY GFR Estimate >90 >60 mL/min/1.7 3m2 05/24/2024 11:59 AM CDT LABORATORY Comment:eGFR calculated usin g 2020 CKD-EPI equation. Calcium 8.7(L) 8.8 - 10.4 mg/dL 05/24/2024 11:59 AM CDT LABORATORY Comment:Reference intervals for this test were updated on 03/04/2024 to reflect our healthy population more accurately. There may be differences in the flagging of prior results with similar values performed with this method. Those prior results can be interpreted in the context of the updated reference intervals. Glucose 166(H) 70 - 99 mg/dL 05/24/2024 11:59 AM CDT LABORATORY Blood BLOOD SPECIMEN / Unknown Venipuncture / Unknown 05/24/2024 11:28 AM CDT 05/24/2024 11:32 AM CDT us Stanton Milian MD LAB - BLOOD ORDERABLES Final Res ult RH LABORATORY [facility] Acute Care Lab [address] Lab (1st floor, no room number) [place] [address] * (ABNORMAL) Glucose by meter (05/24/2024 11:27 AM CDT) GLUCOSE BY METER POCT 159(H) 70 - 99 mg/dL 05/24/2024 11:42 AM CDT LABORATORY POC Blood, venous BLOOD SPECIMEN / Unknown 05/24/2024 11:27 AM CDT 05/24/2024 11:42 AM CDT us Stanton Milian MD LAB - BEAKER POCT Final Result LABORATORY [facility] Lab [address] Lab (1st floor, no room number) [place] [id number] * EKG 12-lead, tracing only (05/24/2024 11:19 AM CDT) Systolic Blood Pressure mmHg RADIOLOGY RESULTS Diastolic Blood Pressure mmHg RADIOLOGY RESULTS Ventricular Rate 53 BPM RAD IOLOGY RESULTS Atrial Rate 53 BPM RADIOLOG Y RESULTS DE Interval 156 ms RADIOLOG Y RESULTS QRS Duration 96 ms RADIOLO GY RESULTS QT 448 ms RADIOLOGY RESULTS QTc 420 ms RADIOLOGY RESULTS P Ruffin 50 degrees RADIOLOGY RESULTS R AXIS 33 degrees RADIOLOGY RESULTS T Ruffin 49 degrees RADIOLOGY RESULTS Interpretation ECG Sinus bradycardia Minimal voltage criteria for LVH, may be normal variant ( Sokolow-Meyer ) Borderline ECG When compared with ECG of 10-Mar-2022 06:08, No significant change was found Confirmed by - EMERGENCY ROOM, PHYSICIAN ([id number]), assignment editor ROMY GILMAN ([id number]) on 05/26/2024 6:58:10 AM RADIOLOGY RESULTS 05/24/2024 11:1 9 AM CDT 05/26/2024 6:58 AM CDT us Stanton Milian MD ECG ORDERABLES Edited Result - Final RADIOLOGY RESULTS documented in this encounter Visit Diagnoses Diagnosis Near syncope Syncope and collapse Hyponatremia Hyposmolality and/or hyponatremia documented in this encounter Administered Medications Inactive Administered Medications - up to 3 most recent administrations Medication Order MAR Action Action Date Dose Rate Site sodium chloride 0.9% BOLUS 1,000 mL Intravenous, 1,000 mL, ONCE, at 1,000 mL/hr, Administer over 1 Hours, On 05/24/24 at 1125, For 1 dose $New Bag 05/24/2024 11:30 AM CDT 1,000 mLs 1000 mL/hr documented in this encounter Active and Recently Administered Medications Times are shown in CDT. Scheduled Medication Order 05/22/2024 05/23/2024 05/24/2024 sodium chloride 0.9% BOLUS 1,000 mL (COMPLETED) Intravenous, 1,000 mL, ONCE, at 1,000 mL/hr, Administer over 1 Hours, On 05/24/24 at 1125, For 1 dose 1130 ($New Bag - Pro vider: Samreen Ambrosio RN)1320 (Stopped - Provider: Kelsi Patricia RN) documented in this encounter Care Teams Aluminizer Relationship Specialty [place] [address] [facility] [address] PCP - General Family Practice 11/21/16 [place] [address] [facility] [place] [address] Assigned PCP 01/30/21 Stephie Mahoney MD [address] [place] [address] [phone] Endocrinology, Diabetes, and Metabolism 04/22/21 Federica Foster, MENDEL [address] [place] [address] [phone] Petroleum Analyst Diabetes Education 04/22/[address] [place] [address] [phone] Petroleum Analyst Nutrition 04/22/21 Stephie Mahoney MD [address] [place] [phone] Assigned Endocrinology Provider 05/08/21 Olga Garcia RN Specialty Wool Supplier INTERNAL MEDICINE - ENDOCRINOLOGY, DIABETES & METABOLISM 09/29/22 documented as of this encounter
--- OUTSIDE RECORDS SUMMARY | 2024-07-02 08:22 | XMS_ITS | Encounter Summary ---
Author Organization [place] Address [address] [place] [address]. [place] [address] Care Team Providers Care Arc Welder Apprentice Name Role Phone Wilber Vidales MD Primary Care Provider + Wilber Vidales MD Unavailable [phone] Stephie Mahoney MD Unavailable [phone] Federica Foster RN Unavailable [phone] Unavailable [phone] Stephie Mahoney MD Unavailable [phone] Olga Garcia RN Unavailable [phone] Junior Chavira MD Unavailable [phone] Encounter Details Date Type Department Care Team (Late st Contact Info) Description 06/02/2024 [facility] [address] [place] [phone] Valerie Henderson Social History Tobacco Use Types Packs/Day Years [...] How often do you attend chur or taoism services? 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 Gender Identity Male 03/03/2019 9:24 PM CDT Sexual Orientation Straight 03/03/2019 9: 24 PM CDT documented as of this encounter Plan of Treatment Upcoming Encounters Date Type Department Care Team (Late st Contact Info) Description 07/11/2024 8:00 AM REINFORCING METAL WORKER Office Visit [facility] [address] [facility] [address] [place] [address] Junior Chavira MD [address] [place] [id number] 07/30/2024 7:30 AM REINFORCING METAL WORKER Appointment [facility] Specialty Care [address] [facility] [address] [place] [address] Candy Trivedi MD [address] [facility] [address] [place] [address] 08/07/2024 1:30 PM REINFORCING METAL WORKER Virtual Visit [facility] Diabetes Education [address] [phone] Stephie Mahoney MD [address] [place] [address] 507265 Federica Foster RN [address] [place] [address] 268125 01/09/2025 8:00 AM CDT Lab [facility] Laboratory [address] [place] [phone] 01/16/2025 3:30 PM CDT Virtual Visit [facility] End[facility]inology Clinic [address] [phone] Stephie Mahoney MD [address] [place] [address] 168665 06/05/2025 12:30 PM CDT Office Visit [facility] End[facility]inology [facility] [address] [phone] Stephie Mahoney MD [address] [place] [address] 838225 documented as of this encounter Visit Diagnoses Not on filedocumented in this encounter Care Teams Arc Welder Apprentice Relationship Specialty [place] [address] [place] [address] PCP - General Family Practice 11/21/16 [place] [address] [place] [address] Assigned PCP 01/30/21 Stephie Mahoney MD [address] [place] [address] Endocrinology, Diabetes, and Metabolism 04/22/21 Federica Foster, RN [address] [place] [address] Line Prep Cook Diabetes Education 04/22/[address] [place] [address] Line Prep Cook Nutrition 04/22/21 Stephie Mahoney MD [address] [place] [address] 228[address] Assigned Endocrinology Provider 05/08/21 Olga Garcia RN Specialty Corn Detasseler Machine Operator INTERNAL MEDICINE - ENDOCRINOLOGY, DIABETES & METABOLISM 09/29/22 Junior Chavira MD [address] [place] [id number] Cardiovascular Disease 05/29/24 documented as of this encounter
--- OUTSIDE RECORDS SUMMARY | 2024-07-02 08:22 | XMS_ITS | Encounter Summary ---
Author Organization [place] Address [address] [place] [address]. [place] [address] Care Team Providers Care Risk Analyst Name Role Phone Wilber Vidales MD Primary Care Provider + Wilber Vidales MD Unavailable [phone] Stephie Mahoney MD Unavailable [phone] Federica Foster RN Unavailable [phone] Unavailable [phone] Stephie Mahoney MD Unavailable [phone] Olga Garcia RN Unavailable [phone] Junior Chavira MD Unavailable [phone] Encounter Details Date Type Department Care Team (Late st Contact Info) Description 04/25/2024 [facility] End[facility]ology [facility] [place] [address] [facility] 3rd [place] [address] Dinah Velazquez Social History Tobacco Use Types Packs/Day Years [...] How often do you attend chur or bahai services? 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 Gender Identity Male 03/03/2019 9:24 PM CDT Sexual Orientation Straight 03/03/2019 9: 24 PM CDT documented as of this encounter Plan of Treatment Upcoming Encounters Date Type Department Care Team (Late st Contact Info) Description 07/11/2024 8:00 AM NAIL WELTER Office Visit [facility] Heart [facility] [address] [facility] [address] [place] [address] Junior Chavira MD [address] [place] [id number] 07/30/2024 7:30 AM NAIL WELTER Appointment [facility] [address] [facility] [address] [place] [address] Candy Trivedi MD [address] [facility] [address] [place] [address] 08/07/2024 1:30 PM NAIL WELTER Virtual Visit [facility] Diabetes Education [address] [phone] Stephie Mahoney MD [address] [place] [address] [phone] Federica Foster RN [address] [place] [address] 307015 01/09/2025 8:00 AM CDT Lab [facility] Laboratory [address] [place] [phone] 01/16/2025 3:30 PM CDT Virtual Visit [facility] Endocrinology Clinic [address] [phone] Stephie Mahoney MD [address] [place] [address] 364415 06/05/2025 12:30 PM CDT Office Visit [facility] Endocrinology Clinic [address] [phone] Stephie Mahoney MD [address] [place] [address] 744195 documented as of this encounter Visit Diagnoses Not on filedocumented in this encounter Care Teams Risk Analyst Relationship Specialty [place] [address] [place] [address] PCP - General Family Practice 11/21/16 [place] [address] [place] [address] Assigned PCP 01/30/21 Stephie Mahoney MD [address] [place] [address] Endocrinology, Diabetes, and Metabolism 04/22/21 Federica Foster, RN 420 [place] [address] Machine Applicator Cementer Diabetes Education 04/22/[address] [place] [address] Machine Applicator Cementer Nutrition 04/22/21 Stephie Mahoney MD [address] [place] [address] Assigned Endocrinology Provider 05/08/21 Olga Garcia RN Specialty Smoking Pipe Driller And Threader INTERNAL MEDICINE - ENDOCRINOLOGY, DIABETES & METABOLISM 09/29/22 Junior Chavira MD [address] [place] 029855 Cardiovascular Disease 05/29/24 documented as of this encounter
--- OUTSIDE RECORDS SUMMARY | 2024-07-02 08:22 | XMS_ITS | Encounter Summary ---
Author Organization [place] Address [address] [place] [address]. [place] [address] Care Team Providers Care Feeder Associate Name Role Phone Wilber Vidales MD Primary Care Provider + Wilber Vidales MD Unavailable [phone] Stephie Mahoney MD Unavailable [phone] Federica Foster RN Unavailable [phone] Unavailable [phone] Stephie Mahoney MD Unavailable [phone] Olga Garcia RN Unavailable [phone] Junior Chavira MD Unavailable [phone] Encounter Details Date Type Department Care Team (Late st Contact Info) Description 05/29/2024 [facility] Medical Advice [facility] [address] [place] [phone] Damaris Tripathi Social History Tobacco Use Types Packs/Day Years [...] How often do you attend chur or zoroastrianism services? 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 Gender Identity Male 03/03/2019 9:24 PM CDT Sexual Orientation Straight 03/03/2019 9: 24 PM CDT documented as of this encounter Plan of Treatment Upcoming Encounters Date Type Department Care Team (Late st Contact Info) Description 07/11/2024 8:00 AM 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 OF SCHOOL HOURS CARE WORKER Office Visit [facility] Heart [facility] [address] [facility] [address] [place] [address] Junior Chavira MD [address] [place] [id number] 07/30/2024 7:30 AM OUT OF SCHOOL HOURS CARE WORKER Appointment [facility] Specialty Care [address] [facility] [address] [place] [address] Candy Trivedi MD [address] [facility] [address] [place] [address] 08/07/2024 1:30 PM OUT OF SCHOOL HOURS CARE WORKER Virtual Visit [facility] Diabetes Education [address] [phone] Stephie Mahoney MD [address] [place] [address] 365255 Federica Foster RN [address] [place] [address] 550095 01/09/2025 8:00 AM CDT Lab [facility] [address] [place] [phone] 01/16/2025 3:30 PM CDT Virtual Visit [facility] Endocrinology Clinic [address] [phone] Stephie Mahoney MD [address] [place] [address] 944455 06/05/2025 12:30 PM CDT Office Visit [facility] Endocrinology Clinic [address] [phone] Stephie Mahoney MD [address] [place] [address] 622005 documented as of this encounter Visit Diagnoses Not on filedocumented in this encounter Care Teams Feeder Associate Relationship Specialty [place] [address] [place] [address] PCP - General Family Practice 11/21/16 [place] [address] [place] [address] Assigned PCP 01/30/21 Stephie Mahoney MD [address] [place] [address] Endocrinology, Diabetes, and Metabolism 04/22/21 Federica Foster, RN [address] [place] [address] Records Clerk Diabetes Education 04/22/[address] [place] [address] Records Clerk Nutrition 04/22/21 Stephie Mahoney MD [address] [place] [address] 25187 Assigned Endocrinology Provider 05/08/21 Olga Garcia RN Specialty Card Hand INTERNAL MEDICINE - ENDOCRINOLOGY, DIABETES & METABOLISM 09/29/22 Junior Chavira MD [address] [place] 307335 Cardiovascular Disease 05/29/24 documented as of this encounter
--- OUTSIDE RECORDS SUMMARY | 2024-07-02 08:22 | XMS_ITS | Encounter Summary ---
Author Organization [place] Address [address] [place] [address]. [place] [address] Care Team Providers Care Tinsmith Apprentice Name Role Phone Wilber Vidales MD Primary Care Provider + Wilber Vidales MD Unavailable [phone] Stephie Mahoney MD Unavailable [phone] Federica Foster RN Unavailable [phone] Unavailable [phone] Stephie Mahoney MD Unavailable [phone] Olga Garcia RN Unavailable [phone] Junior Chavira MD Unavailable [phone] Reason for Visit * Reason Onset Date Comments AC hold 06/09/2024 Encounter Details Date Type Department Care Team (Late st Contact Info) Description 06/09/2024 Telephone [facility] Heart Clinic [address] [place] [address] Janee Cota, RN AC hold Social History Tobacco Use Types Packs/Day Years [...] often do you attend chur ch or orthodox services? 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 Called and left a message on their voicemail with fax number. MENDEL Brenner documented in this encounter Plan of Treatment Upcoming Encounters Date Type Department Care Team (Late st Contact Info) Description 07/11/2024 8:00 AM TEAM FACILITATOR Office Visit [facility] Heart [facility] [address] [facility] [address] [place] [phone] Junior Chavira MD [address] [place] [id number] 07/30/2024 7:30 AM TEAM FACILITATOR Appointment [facility] Specialty Care [address] [facility] [address] [place] [phone] Candy Trivedi MD [address] [place] [address] [place] [address] 08/07/2024 1:30 PM TEAM FACILITATOR Virtual Visit [facility] Diabetes Education [address] [phone] Stephie Mahoney MD [address] [place] [address] 687175 Federica Foster RN [address] [place] [address] 01/09/2025 8:00 AM CDT Lab [facility] Laboratory [address] [place] [phone] 01/16/2025 3:30 PM CDT Virtual Visit [facility] Endocrinology [address] [address] Stephie Mahoney MD [address] [place] [address] 568995 06/05/2025 12:30 PM CDT Office Visit [facility] Endocrinology Clinic [address] [address] Stephie Mahoney MD [address] [place] [address] 618375 documented as of this encounter Visit Diagnoses Not on filedocumented in this encounter Care Teams Tinsmith Apprentice Relationship Specialty [place] [address] [place] [address] PCP - General Family Practice 11/21/16 [place] [address] [place] [address] Assigned PCP 01/30/21 Stephie Mahoney MD [address] [place] [address] 760865 Endocrinology, Diabetes, and Metabolism 04/22/21 Federica Foster RN [address] [place] [address] 067175 [place] Attendant Diabetes Education 04/22/[address] [place] [address] 330394 [place] Attendant Nutrition 04/22/21 Stephie Mahoney MD [address] [place] [address] 596265 Assigned Endocrinology Provider 05/08/21 Olga Garcia, MENDEL Specialty Naprapath INTERNAL MEDICINE - ENDOCRINOLOGY, DIABETES & METABOLISM 09/29/22 Junior Chavira MD [address] [place] [id number] Cardiovascular Disease 05/29/24 documented as of this encounter
--- OUTSIDE RECORDS SUMMARY | 2024-07-02 08:22 | XMS_ITS | Encounter Summary ---
Author Organization [place] Address [address] [place] [address]. [place] [address] Care Team Providers Care Retirement Administrator Name Role Phone Wilber Vidales MD Primary Care Provider + Wilber Vidales MD Unavailable +[phone] Stephie Mahoney MD Unavailable [phone] Federica Foster RN Unavailable [phone] Unavailable [phone] Stephie Mahoney MD Unavailable [phone] Olga Garcia RN Unavailable [phone] Encounter Details Date Type Department Care Team (Late st Contact Info) Description 05/27/2024 Telephone [facility] Endocrinology Clinic [place] [address] [facility] [address] 3rd [place] [address] Stephie Mahoney MD [address] [facility] [address] [place] [address] Social History Tobacco Use Types [...] often do you attend chur ch or voodoo services? 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 Gender Identity Male 03/03/2019 9:24 PM CDT Sexual Orientation Straight 03/03/2019 9: 24 PM CDT documented as of this encounter Miscellaneous Notes * Telephone Encounter - Stephie Mahoney MD - 05/27/2024 4:33 PM CDT Pt wants to stop statin for now due to concerns about dementia - will talk at return visit documented in this encounter Plan of Treatment Upcoming Encounters Date Type Department Care Team (Late st Contact Info) Description 07/11/2024 8:00 AM CAREER TECHNICAL EDUCATION TEACHER Office Visit [address] [place] [phone] Junior Chavira MD [address] [place] [address] 07/30/2024 7:30 AM CAREER TECHNICAL EDUCATION TEACHER Appointment [facility] Specialty Care [address] [place] [phone] Candy Trivedi MD [address] [place] [address] 08/07/2024 1:30 PM CAREER TECHNICAL EDUCATION TEACHER Virtual Visit [facility] Diabetes Education [address] [phone] Stephie Mahoney MD [address] [place] [address] 978115 Federica Foster RN 420 [place], [place] 418135 01/09/2025 8:00 AM CDT Lab [facility] Laboratory [address] [place] [phone] 01/16/2025 3:30 PM CDT Virtual Visit [facility] Endocrinology Clinic [address] [phone] Stephie Mahoney MD [address] [place] [address] 649185 06/05/2025 12:30 PM CDT Office Visit [facility] Endocrinology Clinic [address] [phone] Stephie Mahoney MD [address] [place] [address] [phone] documented as of this encounter Visit Diagnoses Not on filedocumented in this encounter Care Teams Retirement Administrator Relationship Specialty [place] [address] [address] [place] [address] PCP - General Family Practice 11/21/16 [place] [address] [address] [address] Assigned PCP 01/30/21 Stephie Mahoeny MD [address] [place] [address] 135575 Endocrinology, Diabetes, and Metabolism 04/22/21 Federica Foster RN [address] [place] [address] [phone] Regulatory Affairs Analyst Diabetes Education 04/22/[address] [place] [address] [phone] Regulatory Affairs Analyst Nutrition 04/22/21 Stephie Mahoney MD [address] [place] [address] 033255 Assigned Endocrinology Provider 05/08/21 Olga Garcia, RN Specialty Hand Candle Molder INTERNAL MEDICINE - ENDOCRINOLOGY, DIABETES & METABOLISM 09/29/22 documented as of this encounter
--- OUTSIDE RECORDS SUMMARY | 2024-07-02 08:22 | XMS_ITS | Encounter Summary ---
Author Organization [facility] Address [address] [place] [address]. [place] [address] Care Team Providers Care Fuse Coiler Name Role Phone Wilber Vidales MD Primary Care Provider + Wilber Vidales MD Unavailable [phone] Stephie Mahoney MD Unavailable [phone] Federica Foster RN Unavailable [phone] Unavailable [phone] Stephie Mahoney MD Unavailable [phone] Olga Garcia RN Unavailable [phone] Junior Chavira MD Unavailable [phone] Reason for Referral * Consultation (Routine: Next available opening) - Pending Review Specialty Diagnoses / Procedures Referred By Contac t Referred To Contact Diabetes Education Diagnoses Type 1 diabetes mellitus with hyperglycemia (H) Stephie Mahoney MD [address] [facility] [address] [place] [address] Phone: tel: fax: Referral ID Status Reason Start Date Expiration Date V isits Requested Visits Authorized [id number] Pending Review 05/30/2024 05/30/2025 1 1 Question Answer Last HgbA1c: A1C 6.7 04/18/2024 Type of Training: Previous Diagnosis Diabetes Type: Type 1 Diabetes Co-Morbidities: None A1C Goal: <7.0 Medical Nutrition Therapy (MNT) for Diabetes Previous Diagnosis: Annual Follow-up MNT - 2 hours Diabetes Education Topics: Insulin Pump Therapy Insulin Pump Therapy: Current Pump User Special Educational Needs: None Scheduling Instructions: [facility] will call you to coordinate your care as prescribed by your provider. If you don't hear from a communications representative within 2 business days, please call Comments Pt would like virtual visit to transition over to the new omnipod 5 dexcom g7 - ok to do in July 2025 [facility] will call you to coordinate your care as prescribed by your provider. If you don't hear from a communications representative within 2 business days, please call Reason for Visit * Reason Comments Diabetes Encounter Details Date Type Department Care Team (Latest Contact Info) Description 05/30/2024 1:00 PM CDT Office Visit [facility] [address] [place] [address] Stephie Mahoney MD [address] [place] [address] [id number] Type 1 diabetes mellitus with hyperglycemia (H) (Primary Dx) Social History Tobacco Use Types Packs/Day Years [...] often do you attend chur ch or gnosticist services? More than 4 times per year 07/12/2023 Do you belong to any clubs o r organizations such as cheondoism groups, unions, fraternal or athletic groups, or [...] Answer Date Recorded PHQ-2 Score 0 11/23/2023 [place] Citizen [place] [facility] - Occupational Stress [...] AM CDT 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 FINANCIAL DIRECTOR Gender Identity Male 03/03/2019 9:24 PM CDT Sexual Orientation Straight 03/03/2019 9: 24 PM CDT documented as of this encounter Last Filed Vital Signs Vital Sign Reading Time Taken Comments Blood Pressure 148/86 05/30/2024 1:13 PM CDT Pulse 78 05/30/2024 1:13 PM CDT Temperature - - Respiratory Rate - - Oxygen Saturation 97% 05/30/2024 1:13 PM CDT Inhaled Oxygen Concentration - - Weight 83.9 kg (185 lb) 05/30/2024 1:13 PM CDT Height - - Body Mass Index 26.93 07/19/2023 8:13 AM FINANCIAL DIRECTOR documented in this encounter Patient Instructions * Patient Instructions* Stephie Mahoney MD - 05/30/2024 1:00 PM CDT Try zetia at [address] of the statin Try 2 units before meals Consider [facility] pharmacy - you let me know Own eye exam documented in this encounter Progress Notes * Mary Ruiz EMT - 05/30/2024 1:00 PM CDT Images from the original note were not included. CGM: Blood Glucose Monitoring : Pump Settings: * Stephie Mahoney MD - 05/30/2024 1:00 PM CDT 05/30/24 Santy is a 63 year old who is being evaluated as an inperson visit 40 minutes spent on pt on the day of the encounter including documentation time, chart review, discussion with pt, and coordination of care HPI #1 type 1 diabetes with positive oliva antibodies and positive antiislet antibodies noted in March 2021 now on OmniPod 5 system February 2022 In January 2021, the patient reports 20 lb. weight loss, and increase polyuria, and some slightly increased polydipsia. In March 2021, the patient reported some shoulder pain and received a Medrol dosepack. A few days later after finishing the Dosepak, he presented to the emergency room with with a glucose of 428, beta hydroxybutyrate of 0.4, and slightly positive ketones. The patient was started on Metformin in 2020. Subsequent follow-up in March 2021 showed hemoglobin A1c of 10.8, C-peptide of 1.0, positive oliva antibodies, and positive antiislet antibodies. The patient was started on Flqlks07 units daily as well as a continuous glucose monitor and presents for follow-up. He changed over to the Dexcom G6 in May 2021. In August 2021, the patient was on an OmniPod Dash and Dexcom G6 along with metformin at 2000 mg daily. Hemoglobin A1c at 6.3. As of February 2022, he has been on the OmniPod 5. April 2022 hemoglobin A1c at 6.8. Interval history: Patient currently on metformin 500 daily as well as the OmniPod 5. He reports tolerating this program. Continues to have hyperglycemia with meals as well as hypoglycemia when he exercises. March 2024 hemoglobin A1c at 6.7. CGM reviewed:Average glucose 167, 65% within range, 35% above range, uses approximately 41 units ofinsulin per day, which 23 units are basal and 18 units of bolus. Midnight to 6:30 AM: 0.3 units/h 6:30 AM to 9:30 AM: 0.8 units/h 9:30 AM to 1 PM: 0.3 units/h 1 PM to 6 PM: 0.1 units/h 6 PM to midnight: 0.4 units/h ISF: Midnight to 6:30 AM: 1 per 35 6:30 AM to 12 pm: 1 per 30 12 pm to 6 pm: 1 per 40 6 pm to midnight: 1 per 30 insulin to carb ratio: Midnight to 5 AM: 1 per 15, 5 AM to noon- 1 per 7 noon to 6 pm - 1 per 12 6 pm to 10 pm - 1 per 7 10 PM to midnight: 1 per 15 Blood glucose correction: 6 AM to 9:30 PM: 120 9:30 PM to 6 AM: 140 Blood glucose target: 6 AM to 9:30 PM: 110 9:30 PM to 6 AM: 120 ROS related to diabetes CV: History of aortic valve replacement in 2019 for severe aortic stenosis was noted nonocclusive coronary artery disease, March 2024 LDL 137-patient does not want to be on a statin Neuro:none Neph: Negative protein in urine in March 2024 Eye: Negative eye exam in May 2023 Infections: none Dental: pending Immunizations: pending #2 neurological concerns The patient has a history of seizures. He had an episode earlier this year which caused him to be disoriented with driving. He has seen his neurologist in September 2022 who felt that continued observation would be warranted. He also notes a slight tremor in his right arm which she thinks may be related to metformin. He denies any GI issues associate with metformin. Interval history: Patient had head MRI in October 2023 that showed a possible right frontal lobe infarct with no evidence for malignancy.. Interval history: He reports that this is stable #3 hypertension Patient currently on lisinopril 20 mg daily Interval history: Patient remains on lisinopril. #4 recent syncopal episode The patient had a recent syncopal episode in May 2024 which warranted ER evaluation. This was associate with hypotension with a systolic blood pressure around 60. The evaluation was significant for as noted hyponatremia, and the likelihood that excess lisinopril intake may have contributed to his hypotension. Patient has pending cardiology evaluation. #5 hyponatremia Noted sodium around 131 with recent syncopal episode in May 2024. #6 hyperlipidemia March 2024 LDL 137. Of note, the patient explicitly does not want to be on a statin because his is concerned that this might be contributing to dementia. 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 Chronic systolic heart failure (H) 04/28/2019 Grade 4/6 03/17/19, but most recent echo 12/2020 with resolutions and EF 65-70% Diabetes (H) 2020 ESCALONA (dyspnea on exertion) 04/28/2019 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 Lateral epicondylitis of left elbow 03/28/2019 Nonrheumatic aortic valve stenosis 03/08/2018 severe-s/p bioprosthetic AVR JEFERSON (obstructive sleep apnea) 11/21/2016 Paroxysmal atrial fibrillation (H) Seizures (H) Allergies Allergies Allergen Reactions Carbamazepine Rash Phenobarbital Phenytoin Other (See Comments) and Rash high fever Valproic Acid Rash Procarbazine Rash Sulfa Antibiotics Rash Medications Current Outpatient Medications Medication Sig Dispense Refill acetone urine (KETOSTIX) test strip Use to check urine ketones in the event of pump failure or unexplained blood glucoses over 250 and not resolving. 25 strip 3 apixaban ANTICOAGULANT (ELIQUIS ANTICOAGULANT) 5 MG tablet Take 1 tablet (5 mg) by mouth 2 times daily 180 tablet 3 atorvastatin (LIPITOR) 40 MG tablet Take 1 tablet (40 mg) by mouth at bedtime 90 tablet 3 carvedilol (COREG) 12.5 MG tablet Take 1 tablet (12.5 mg) by mouth 2 times daily (with meals) 180 tablet 3 cholecalciferol (VITAMIN D3) 125 mcg (5000 units) capsule Take by mouth daily Continuous Blood Gluc Sensor (DEXCOM G6 SENSOR) MISC Change every 10 days. 3 each 11 Continuous Blood Gluc Transmit (DEXCOM G6 TRANSMITTER) MISC Change every 3 months. 1 each 3 insulin aspart (NOVOLOG VIAL) 100 UNITS/ML vial Uses about 80 units per day 80 mL 3 Insulin Disposable Pump (OMNIPOD 5 G6 PODS, GEN 5,) MISC 1 each every other day 3 month supply. 40 each 3 insulin glargine (LANTUS PEN) 100 UNIT/ML pen 20 units if pod fails 3 mL insulin syringe-needle U-100 (30G X 1/2 0.3 ML) 30G X 1/2 0.3 ML miscellaneous Use in the event of pump failure and need to administer manual injection. 10 each 11 LAMOTRIGINE PO Take 300 mg by mouth 2 times daily lisinopril (ZESTRIL) 20 MG tablet Take 1 tablet (20 mg) by mouth daily 90 tablet 3 melatonin 5 MG tablet metFORMIN (GLUCOPHAGE) 500 MG tablet Take 1 tablet (500 mg) by mouth daily (with dinner) 90 tablet 3 modafinil (PROVIGIL) 200 MG tablet Take 0.5-1 tablets (100-200 mg) by mouth daily as needed (daytime sleepiness) 90 tablet 1 Multiple Vitamins-Minerals (MENS MULTI VITAMIN & MINERAL PO) Take 1 tablet by mouth daily Psyllium (METAMUCIL FIBER PO) Take 1 dose. by mouth daily sildenafil (VIAGRA) 100 MG tablet Take 1 tablet (100 mg) by mouth daily as needed (30 minutes priorto sexual activity) 12 tablet 11 vitamin C (ASCORBIC ACID) 1000 MG TABS Take 1 tablet by mouth daily zinc gluconate 50 MG tablet Take 50 mg by mouth daily Family History family history includes Bladder Cancer in his father; Breast Cancer in an other family member; Cerebrovascular Disease in his maternal grandmother; Diabetes in his sister; Heart Disease in his paternal grandmother; Hypertension in his mother; Lung Cancer in his paternal grandfather; Lupus in his daughter; Other Cancer in his father; Seizure Disorder in his sister; Thyroid Disease in his brother, mother, sister, and sister. Social History Social History Socioeconomic History Marital status: Spouse name: Not on file Number of children: Not on file Years of education: Not on file Highest education level: Bachelor's degree (e.g., BA, AB, BS) Occupational History Not on file Tobacco Use Smoking status: Never Smokeless tobacco: Never Vaping Use Vaping status: Never Used Substance and Sexual Activity Alcohol use: Yes Comment: 2/week Drug use: No Sexual activity: Yes Partners: Female control/protection: None Other Topics Concern Parent/sibling w/ CABG, PA or angioplasty before 65F 55M? No Social History Narrative Not on file Social Determinants of Health Financial Resource Strain: Low Risk (07/12/2023) Financial Resource Strain Within the past 12 months, have you or your family members you live with been unable to get utilities (heat, electricity) when it was really needed?: No Food Insecurity: Low Risk (07/12/2023) Food Insecurity Within the past 12 months, did you worry that your food would run out before you got money to buy more?: No Within the past 12 months, did the food you bought just not last and you didn???t have money to getmore?: No Transportation Needs: Low Risk (07/12/2023) Transportation Needs Within the past 12 months, has lack of transportation kept you from medical appointments, getting your medicines, non-medical meetings or appointments, work, or from getting things that you need?: No Physical Activity: Insufficiently Active (07/12/2023) Exercise Vital Sign Days of Exercise per Week: 3 days Minutes of Exercise per Session: 30 min Stress: Patient Declined (07/12/2023) [place] Citizen [place] [employer] [facility] - Occupational Stress Questionnaire Feeling of Stress : Patient declined Social Connections: Socially Integrated (07/12/2023) Social Connection and Isolation Panel [NHANES] Frequency of Communication with Friends and Family: Twice a week Frequency of Social Gatherings with Friends and Family: Once a week Attends Hindu Services: More than 4 times per year Active Member of Clubs or Organizations: Yes Attends Club or Organization Meetings: More than 4 times per year Marital Status: Interpersonal Safety: Low Risk (07/19/2023) Interpersonal Safety Do you feel physically and emotionally safe where you currently live?: Yes Within the past 12 months, have you been hit, slapped, kicked or otherwise physically hurt by someone?: No Within the past 12 months, have you been humiliated or emotionally abused in other ways by your partner or ex-partner?: No Housing Stability: Low Risk (07/12/2023) Housing Stability Do you have housing? : Yes Are you worried about losing your housing?: No ROS Per HPI Physical Exam Blood pressure (!) 148/86, pulse 78, weight 83.9 kg (185 lb), SpO2 97%. GENERAL APPEARANCE: Alert and no distress NECK: No lymphadenopathy appreciated Thyroid: No obvious nodules palpated CV: RRR without M/R/G Lungs: CTA bilaterally Abdomen: Soft, Nontender, non distended, positive bowel sounds Neuro: no focal deficits Skin: No infection in feet Mood: Normal Lymph: neg in neck and supraclavicular area RESULTS Admission on 05/24/2024, Discharged on 05/24/2024 Component Date Value Ref Range Status Sodium 05/24/2024 131 (L) 135 - 145 mmol/L Final Potassium 05/24/2024 4.1 3.4 - 5.3 mmol/L Final Chloride 05/24/2024 95 (L) 98 - 107 mmol/L Final Carbon Dioxide (CO2) 05/24/2024 29 22 - 29 mmol/L Final Anion Gap 05/24/2024 7 7 - 15 mmol/L Final Urea Nitrogen 05/24/2024 15.2 8.0 - 23.0 mg/dL Final Creatinine 05/24/2024 0.95 0.67 - 1.17 mg/dL Final GFR Estimate 05/24/2024 >90 >60 mL/min/1.73m2 Final eGFR calculated using 2020 CKD-EPI equation. Calcium 05/24/2024 8.7 (L) 8.8 - 10.4 mg/dL Final Reference intervals for this test were updated on 03/04/2024 to reflect our healthy population more accurately. There may be differences in the flagging of prior results with similar values performed with this method. Those prior results can be interpreted in the context of the updated reference intervals. Glucose 05/24/2024 166 (H) 70 - 99 mg/dL Final WBC Count 05/24/2024 4.3 4.0 - 11.0 10e3/uL Final RBC Count 05/24/2024 4.55 4.40 - 5.90 10e6/uL Final Hemoglobin 05/24/2024 13.9 13.3 - 17.7 g/dL Final Hematocrit 05/24/2024 39.5 (L) 40.0 - 53.0 % Final MCV 05/24/2024 87 78 - 100 fL Final MCH 05/24/2024 30.5 26.5 - 33.0 pg Final MCHC 05/24/2024 35.2 31.5 - 36.5 g/dL Final RDW 05/24/2024 11.7 10.0 - 15.0 % Final Platelet Count 05/24/2024 142 (L) 150 - 450 10e3/uL Final % Neutrophils 05/24/2024 48 % Final % Lymphocytes 05/24/2024 28 % Final % Monocytes 05/24/2024 10 % Final % Eosinophils 05/24/2024 14 % Final % Basophils 05/24/2024 1 % Final % Immature Granulocytes 05/24/2024 0 % Final NRBCs per 100 WBC 05/24/2024 0 <1 /100 Final Absolute Neutrophils 05/24/2024 2.1 1.6 - 8.3 10e3/uL Final Absolute Lymphocytes 05/24/2024 1.2 0.8 - 5.3 10e3/uL Final Absolute Monocytes 05/24/2024 0.4 0.0 - 1.3 10e3/uL Final Absolute Eosinophils 05/24/2024 0.6 0.0 - 0.7 10e3/uL Final Absolute Basophils 05/24/2024 0.0 0.0 - 0.2 10e3/uL Final Absolute Immature Granulocytes 05/24/2024 0.0 <=0.4 10e3/uL Final Absolute NRBCs 05/24/2024 0.0 10e3/uL Final Hold Specimen 05/24/2024 JIC Final Hold Specimen 05/24/2024 JI Final Ventricular Rate 05/24/2024 53 BPM Final Atrial Rate 05/24/2024 53 BPM Final SD Interval 05/24/2024 156 ms Final QRS Duration 05/24/2024 96 ms Final QT 05/24/2024 448 ms Final QTc 05/24/2024 420 ms Final P Whiting 05/24/2024 50 degrees Final R AXIS 05/24/2024 33 degrees Final T Whiting 05/24/2024 49 degrees Final Interpretation ECG 05/24/2024 Final Value:Sinus bradycardia Minimal voltage criteria for LVH, may be normal variant ( Sokolow-Meyer ) Borderline ECG When compared with ECG of 10-Mar-2022 06:08, No significant change was found Confirmed by - EMERGENCY ROOM, PHYSICIAN ([id number]), manuscript editor ROMY GILMAN (Binta) on 05/26/2024 6:58:10AM GLUCOSE BY METER POCT 05/24/2024 159 (H) 70 - 99 mg/dL Final Lab on 04/18/2024 Component Date Value Ref Range Status 25 OH Vitamin D2 04/18/2024 <5 ug/L Final 25 OH Vitamin D3 04/18/2024 32 ug/L Final 25 OH Vit D Total 04/18/2024 <37 20 - 75 ug/L Final Season, race, dietary intake, and treatment affect the concentration of 80-tkvahyd-Freeyfv D. Values may decrease during winter months and increase during summer months. Values 20-29 ug/L may indicate Vitamin D insufficiency and values <20 ug/L may indicate Vitamin D deficiency. TSH 04/18/2024 3.06 0.30 - 4.20 uIU/mL Final Cholesterol 04/18/2024 207 (H) <200 mg/dL Final Triglycerides 04/18/2024 42 <150 mg/dL Final Direct Measure HDL 04/18/2024 62 >=40 mg/dL Final LDL Cholesterol Calculated 04/18/2024 137 (H) <=100 mg/dL Final Non HDL Cholesterol 04/18/2024 145 (H) <130 mg/dL Final Patient Fasting > 8hrs? 04/18/2024 Yes Final Creatinine Urine mg/dL 04/18/2024 114.0 mg/dL Final The reference ranges have not been established in urine creatinine. The results should be integrated into the clinical context for interpretation. Albumin Urine mg/L 04/18/2024 <12.0 mg/L Final The reference ranges have not been established in urine albumin. The results should be integrated into the clinical context for interpretation. Albumin Urine mg/g Cr 04/18/2024 Final Unable to calculate, urine albumin and/or urine creatinine is outside detectable limits. Microalbuminuria is defined as an albumin:creatinine ratio of 17 to 299 for males and 25 to 299 forfemales. A ratio of albumin:creatinine of 300 or higher is indicative of overt proteinuria. Due to biologic variability, positive results should be confirmed by a second, first-morning randomor 24-hour timed urine specimen. If there is discrepancy, a third specimen is recommended. When 2 out of 3 results are in the microalbuminuria range, this is evidence for incipient nephropathy and warrants increased efforts at glucose control, blood pressure control, and institution of therapy withan jpsyazcvosc-lvgguqavuc-dubsal (JOANA) inhibitor (if the patient can tolerate it). Sodium 04/18/2024 135 135 - 145 mmol/L Final Potassium 04/18/2024 4.2 3.4 - 5.3 mmol/L Final Chloride 04/18/2024 97 (L) 98 - 107 mmol/L Final Carbon Dioxide (CO2) 04/18/2024 30 (H) 22 - 29 mmol/L Final Anion Gap 04/18/2024 8 7 - 15 mmol/L Final Urea Nitrogen 04/18/2024 13.4 8.0 - 23.0 mg/dL Final Creatinine 04/18/2024 0.91 0.67 - 1.17 mg/dL Final GFR Estimate 04/18/2024 >90 >60 mL/min/1.73m2 Final eGFR calculated using 2020 CKD-EPI equation. Calcium 04/18/2024 8.9 8.8 - 10.4 mg/dL Final Reference intervals for this test were updated on 03/04/2024 to reflect our healthy population more accurately. There may be differences in the flagging of prior results with similar values performed with this method. Those prior results can be interpreted in the context of the updated reference intervals. Glucose 04/18/2024 123 (H) 70 - 99 mg/dL Final Patient Fasting > 8hrs? 04/18/2024 Yes Final Hemoglobin A1C 04/18/2024 6.7 (H) 0.0 - 5.6 % Final Normal <5.7% Prediabetes 5.7-6.4% Diabetes 6.5% or higher Note: Adopted from ADA consensus guidelines. Tissue Transglutaminase Antibody I* 04/18/2024 <0.2 <7.0 U/mL Final Negative- The tTG-IgA assay has limited utility for patients with decreased levels of IgA. Screening for celiac disease should include IgA testing to rule out selective IgA deficiency and to guide selection and interpretation of serological testing. tTG-IgG testing may be positive in celiac diseasepatients with IgA deficiency. Tissue Transglutaminase Antibody I* 04/18/2024 <0.6 <7.0 U/mL Final Negative ASSESSMENT: #1 type 1 diabetes with positive oliva antibodies and positive antiislet antibodies noted in March 2021 now on OmniPod 5 system February hemoglobin A1c at 6.7. Overall doing pretty well. We will microsoft exchange administrator to the patient tothe OmniPod G7 system as well as the Dexcom G7. Because the patient has been having problems with hypoglycemia, we will change insulin sensitivity as noted below. Reminded patient to at least bolus some insulin before meals versus no insulin before meals. He reports that he is reluctant to bolus insulin if his blood sugars normal) before eating. Patient willing to take NovoLog 2 units prior to meals if his blood sugar is normal to reduce the postprandial hyperglycemia. Referral made for diabetes education. For now, pump settings as noted below. Patient understands he needs to see ophthalmology - he will arrange himself and does not want a referral. Patient to do labs below within the next few weeks. Midnight to 6:30 AM: 0.3 units/h 6:30 AM to 9:30 AM: 0.8 units/h 9:30 AM to 1 PM: 0.3 units/h 1 PM to 6 PM: 0.1 units/h 6 PM to midnight: 0.4 units/h ISF Midnight to 6:30 AM: 1 per 35 6:30 AM to 12 pm: 1 per 35 12 pm to 6 pm: 1 per 45 6 pm to midnight: 1 per 35 insulin to carb ratio: Midnight to 5 AM: 1 per 15, 5 AM to noon- 1 per 7 noon to 6 pm - 1 per 12 6 pm to 10 pm - 1 per 7 10 PM to midnight: 1 per 15 Blood glucose correct above: Midnight to 6:30 AM - correct above 130 6 am to 9:30 PM - correct above 120 9:30 pm to midngiht - correct above 130 Blood glucose target: 6 AM to 9:30: 110 9:30 pm: to 6 AM: 120 #2 neurological concerns Not discussed today. #3 hypertension Continue with current program. #4 recent syncopal episode Patient has upcoming cardiology appointment. Will recheck labs including a.m. cortisol as noted below. #5 hyponatremia Will recheck labs as noted below. #6 hyperlipidemia I discussed with patient that the likelihood of statins causing dementia is low, especially if the LDL remains greater than 70. That being said, he does not want to be on a statin. Will see if he might tolerate Zetia. Prescription for 10 mg sent to pharmacy. Will call the patient in a few weeks to assess tolerance. Patient to see me every 6 months for follow-up. Orders Placed This Encounter Procedures Cortisol Basic metabolic panel Osmolality 25 Hydroxyvitamin D2 and D3 TSH Lipid Profile Albumin Random Urine Quantitative with Creat Ratio Basic metabolic panel Hemoglobin A1c Tissue transglutaminase mike IgA and IgG Adult Diabetes Education Leasing Associate Referral documented in this encounter Nursing Notes * Mary Ruiz EMT - 05/30/2024 1:00 PM CDT Chief Complaint Patient presents with Diabetes Vital signs: BP: (!) 148/86 Pulse: 78 SpO2: 97 % Weight: 83.9 kg (185 lb) Estimated body mass index is 26.93 kg/m?? as calculated from the following: Height as of 07/19/23: 1.765 m (5' 9.5). Weight as of this encounter: 83.9 kg (185 lb). documented in this encounter Plan of Treatment Upcoming Encounters Date Type Department Care Team (Late st Contact Info) Description 07/11/2024 8:00 AM FINANCIAL DIRECTOR Office Visit [facility] [place] [id number] [facility] [address] [place] [id number] Junior Chavira MD [address] [place], [place] [id number] 07/30/2024 7:30 AM FINANCIAL DIRECTOR Appointment [facility] [id number] [facility] [address] [place] [phone] Candy Trivedi MD [address] [place], [place] [address] 08/07/2024 1:30 PM FINANCIAL DIRECTOR [facility] Education [facility] [address] [facility] [address] 3rd [place] [phone] Stephie Mahoney MD [address] [facility] 101 [place] [address] Federica Foster, RN [address] [place] [address] 01/09/2025 8:00 AM CDT Lab [facility] Laboratory [address] [place] [phone] 01/16/2025 3:30 PM CDT Virtual Visit [facility] [address] [phone] Stephie Mahoney MD [address] [place] [address] 785685 06/05/2025 12:30 PM CDT Office Visit [facility] [address] [phone] Stephie Mahoney MD [address] [place] [address] 148345 Scheduled Orders Name Type Priority Associated Diagnoses Orde r Schedule 25 Hydroxyvitamin D2 and D3 Lab Routine Type 1 diabetes mellitus with hyperglycemia (H) Expected: 11/17/2024 (Approximate), Expires: 05/18/2025 TSH Lab Routine Type 1 diabetes mellitus with hyperglycemia (H) Expected: 11/17/2024, Expires: 05/18/2025 Lipid Profile Lab Routine Type 1 diabetes mellitus with hyperglycemia (H) Expected: 11/17/2024, Expires: 05/18/2025 Albumin Random Urine Quantitative with Creat Ratio Lab Routine Type 1 diabetes mellitus with hyperglycemia (H) Expected: 11/17/2024, Expires: 05/18/2025 Basic metabolic panel Lab Routine Type 1 diabetes mellitus with hyperglycemia (H) Expected: 11/17/2024, Expires: 05/18/2025 Hemoglobin A1c Lab Routine Type 1 diabetes mellitus with hyperglycemia (H) Expected: 11/17/2024, Expires: 05/18/2025 Tissue transglutaminase mike IgA and IgG Lab Routine Type 1 diabetes mellitus with hyperglycemia (H) Expected: 11/17/2024, Expires: 05/18/2025 Scheduled Referrals Name Type Priority Associated Diagnoses Orde r Schedule Adult Diabetes Education Leasing Associate Referral Referral Routine: Next available opening Type 1 diabetes mellitus with hyperglycemia (H) Expected: 05/30/2024 (Approximate), Expires: 05/30/2025 documented as of this encounter Results * Osmolality (06/10/2024 8:22 [...] - BLOOD ORDERABLES Final Result [facility] [address] [facility], Room [address] [place] [phone] * (ABNORMAL) Basic metabolic panel (06/10/2024 8:22 AM CDT) Sodium 135 135 - 145 mmol/L 06/10/2024 [...] 4:16 PM CDT [facility] Comment:eGFR calculated usin 2020 CKD-EPI equation. Calcium 9.1 8.8 - 10.4 [...] - BLOOD ORDERABLES Final Result [facility] Core Lab [address] [place] [address], Room [address] [place] [phone] * Cortisol (06/10/2024 8:22 AM CDT) Cortisol [...] - BLOOD ORDERABLES Final Result [facility] [address] [facility], Room [address] [place] [address], [facility] documented in this encounter Visit Diagnoses Diagnosis Type 1 diabetes mellitus with hyperglycemia (H)- Primary Type I (juvenile type) diabetes mellitus without mention of complication, not stated as uncontrolled documented in this encounter Care Teams Fuse Coiler Relationship Specialty [place] [address] [place] [address] PCP - General Family Practice 11/21/16 [place] [address] [place] [address] Assigned PCP 01/30/21 Stephie Mahoney MD [address] [place] [address] [phone] Endocrinology, Diabetes, and Metabolism 04/22/21 Federica Foster RN 420 [place], [place] 655815 Blocker Heated [employer] Forms Diabetes Education 04/22/[address] [place] [address] [phone] [employer] Nutrition 04/22/21 Stephie Mahoney MD [address] 768165 Assigned Endocrinology Provider 05/08/21 Olga Garcia, RN Specialty Home Health Clinical Supervisor INTERNAL MEDICINE - ENDOCRINOLOGY, DIABETES & METABOLISM 09/29/22 Junior Chavira MD [address] [place] [address] Cardiovascular Disease 05/29/24 documented as of this encounter
--- OUTSIDE RECORDS SUMMARY | 2024-07-02 08:22 | XMS_ITS | Encounter Summary ---
Author Organization [place] Address [address] [place] [address]. [place] [address] Care Team Providers Care Public Works Laborer Name Role Phone Wilber Vidales MD Primary Care Provider + Wilber Vidales MD Unavailable [phone] Stephie Mahoney MD Unavailable [phone] Federica Foster RN Unavailable [phone] Unavailable [phone] Stephie Mahoney MD Unavailable [phone] Olga Garcia RN Unavailable [phone] Junior Chavira MD Unavailable [phone] Encounter Details Date Type Department Care Team (Late st Contact Info) Description 05/23/2024 [facility] Medical Advice [facility] [address] 3rd [place] [address] Rebecca Harvey, RN Social History [...] often do you attend chur ch or christianity services? More than 4 times per year 07/12/2023 Do you belong to any clubs o r organizations such as zoroastrianism groups, unions, fraternal or athletic groups, or [...] Answer Date Recorded PHQ-2 Score 0 11/23/2023 [facility] - Occupational Stress Questionnaire Answer Date [...] AM CDT 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 SAUSAGE SMOKER Gender Identity Male 03/03/2019 9:24 PM CDT Sexual Orientation Straight 03/03/2019 9: 24 PM CDT documented as of this encounter Plan of Treatment Upcoming Encounters Date Type Department Care Team (Late st Contact Info) Description 07/11/2024 8:00 AM SAUSAGE SMOKER Office Visit [facility] Heart [facility] [address] [facility] [address] [place] [address] Junior Chavira MD [address] [place] [address] 07/30/2024 7:30 AM SAUSAGE SMOKER Appointment [facility] Specialty Care [address] [facility] [address] [place] [phone] Candy Trivedi MD [address] [facility] [address] [place] [address] 08/07/2024 1:30 PM SAUSAGE SMOKER Virtual Visit [facility] Diabetes Education [address] [phone] Stephie Mahoney MD [address] [place] [address] [phone] Federica Foster RN 420 [place], [place] 075945 01/09/2025 8:00 AM CDT Lab [facility] Laboratory [address] [place] [phone] 01/16/2025 3:30 PM CDT Virtual Visit [facility] [address] [phone] Stephie Mahoney MD [address] [place] [address] 06/05/2025 12:30 PM CDT Office Visit [facility] [address] [phone] Stephie Mahoney MD [address] [place] [address] documented as of this encounter Visit Diagnoses Not on filedocumented in this encounter Care Teams Public Works Laborer Relationship Specialty [place] [address] [place] [address] PCP - General Family Practice 11/21/16 [place] [address] [place] [address] Assigned PCP 01/30/21 Stephie Mahoney MD [address] [address] Endocrinology, Diabetes, and Metabolism 04/22/21 Federica Foster, RN 420 [place], [place] 217335 Service Observer Chief Diabetes Education 04/22/[address] [place] [address] [phone] Service Observer Chief Nutrition 04/22/21 Stephie Mahoney MD [address] [place] [address] 996815 Assigned Endocrinology Provider 05/08/21 Olga Garcia, RN Specialty Entry Level Staff Accountant INTERNAL MEDICINE - ENDOCRINOLOGY, DIABETES & METABOLISM 09/29/22 Junior Chavira MD [address] [place], [place] 5364[address] Cardiovascular Disease 05/29/24 documented as of this encounter
--- OUTSIDE RECORDS SUMMARY | 2024-07-02 08:22 | XMS_ITS | Encounter Summary ---
Author Organization [place] Address [address] [place] [address]. [place] [address] Care Team Providers Care Shredder Tender Peat Name Role Phone Wilber Vidales MD Primary Care Provider + Wilber Vidales MD Unavailable [phone] Stephie Mahoney MD Unavailable [phone] Federica Foster RN Unavailable [phone] Unavailable [phone] Stephie Mahoney MD Unavailable [phone] Olga Garcia RN Unavailable [phone] Junior Chavira MD Unavailable [phone] Reason for Visit * Reason Onset Date Comments Appointment 05/29/2024 Referral per Isk os Encounter Details Date Type Department Care Team (Late st Contact Info) Description 05/29/2024 Telephone [facility] Heart [facility] [address] [facility] [address] [place] [address] Candy Trivedi MD [address] [facility] [address] [place] [address] Appointment (Referral per Shikha) Social History Tobacco Use Types Packs/Day Years [...] How often do you attend chur or pentecostal services? More than 4 times per year [...] Answer Date Recorded PHQ-2 Score 0 11/23/2023 [facility] of Occupat ional Health - Occupational Stress [...] in an abandoned building, in an overnight long term, or couch-surfing.) Yes 07/12/2023 Are you worried [...] AM CDT 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 [place] Gender Identity Male 03/03/2019 9:24 PM CDT Sexual Orientation Straight 03/03/2019 9: 24 PM CDT documented as of this encounter Miscellaneous Notes * Telephone Encounter - Krai Sanders - 05/29/2024 12:21 PM CDT [facility] Phone Message May a detailed message be left on voicemail: yes Reason for Call: Other: Patient tried to schedule according to the referral from Dr. Trivedi to follow up and reestablish care with Dr. Wu. There was no availability with Dr. Wu and patient would like to know if there is a different provider that he can see. He is currently on the waitlist in case something opens up. Thank you! Action Taken: Other: Cardiology Travel Screening: Not Applicable Thank you! Specialty [facility] documented in this encounter Plan of Treatment Upcoming Encounters Date Type Department Care Team (Late st Contact Info) Description 07/11/2024 8:00 AM [place] Office Visit [facility] Heart [facility] [address] [facility] [address] [place] [phone] Junior Chavira MD [address] [place] [address] 07/30/2024 7:30 AM [place] Appointment [facility] Specialty Care [address] [facility] [address] [place] [phone] Candy Trivedi MD [address] [place], [place] [address] 08/07/2024 1:30 PM [place] Virtual Visit [facility] Diabetes Education [address] [phone] Stephie Mahoney MD 420 [facility] 101 [place] [address] Federica Foster RN 420 [place], [place] [address] 01/09/2025 8:[address] [facility] Laboratory [address] [place] [phone] 01/16/2025 3:30 PM CDT Virtual Visit [facility] Endocrinology Clinic [address] [place] [phone] Stephie Mahoney MD [address] [place] [address] 847275 06/05/2025 12:30 PM CDT Office Visit [facility] Endocrinology Clinic [address] [phone] Stephie Mahoney MD [address] [place] [address] 132335 documented as of this encounter Visit Diagnoses Not on filedocumented in this encounter Care Teams Shredder Tender Peat Relationship Specialty [place] [address] [place] [address] PCP - General Family Practice 11/21/16 [place] [address] [place] [address] Assigned PCP 01/30/21 Stephie Mahoney MD [address] [place] [address] 352445 Endocrinology, Diabetes, and Metabolism 04/22/21 Federica Foster, MENDEL [address] [place] [address] [phone] Forensic Identification Specialist Diabetes Education 04/22/[address] [place] [address] [phone] Forensic Identification Specialist Nutrition 04/22/21 Stephie Mahoney MD [address] [place] [address] 677175 Assigned Endocrinology Provider 05/08/21 Olga Garcia, RN Specialty Overnight Associate INTERNAL MEDICINE - ENDOCRINOLOGY, DIABETES & METABOLISM 09/29/22 Junior Chavira MD [address] [place] [address] Cardiovascular Disease 05/29/24 documented as of this encounter
--- OUTSIDE RECORDS SUMMARY | 2024-07-02 08:22 | XMS_ITS | Encounter Summary ---
Author Organization [place] Address [address] [place] [address]. [place] [address] Care Team Providers Care Environmental Services Supervisor Name Role Phone Wilber Vidales MD Primary Care Provider + Wilber Vidales MD Unavailable [phone] Stephie Mahoney MD Unavailable [phone] Federica Foster RN Unavailable [phone] Unavailable [phone] Stephie Mahoney MD Unavailable [phone] Olga Garcia RN Unavailable [phone] Junior Chavira MD Unavailable [phone] Reason for Visit * Reason Onset Date Comments Medication Question 06/02/2024 Encounter Details Date Type Department Care Team (Late st Contact Info) Description 06/02/2024 Telephone [facility] [place] [address] [facility] 3rd [place] [address] Stephie Mahoney MD [address] [place] [address] 101 [place] [address] Medication Question Social History Tobacco Use Types Packs/Day Years [...] often do you attend chur ch or rastafarian services? 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 Gender Identity Male 03/03/2019 9:24 PM CDT Sexual Orientation Straight 03/03/2019 9: 24 PM CDT documented as of this encounter Miscellaneous Notes * Telephone Encounter - Nicole Damon - 06/02/2024 10:20 AM CDT [facility] Phone Message May a detailed message be left on voicemail: yes Reason for Call: Medication Question or concern regarding medication Prescription Clarification Name of Medication: Insulin Disposable Pump (OMNIPOD 5 G7 PODS, GEN 5,) [facility] Prescribing Provider: Stehpie Mahoney Pharmacy: [facility] - [place], [place] - [address] What on the order needs clarification? Provider needs to update the prescription as it does not state when to change out the omnipod. Please advise. Action Taken: Other: Endo Travel Screening: Not Applicable Date of Service: 06/02/24 documented in this encounter Plan of Treatment Upcoming Encounters Date Type Department Care Team (Late st Contact Info) Description 07/11/2024 8:00 AM GRINDING MILL OPERATOR Office Visit [facility] Heart [facility] [address] [facility] 140 [place] [phone] Junior Chavira MD [address] [place] [address] 07/30/2024 7:30 AM GRINDING MILL OPERATOR Appointment [facility] Specialty Care [address] [facility] [address] [place] [phone] Candy Trivedi MD [address] [place], [place] [address] 08/07/2024 1:30 PM GRINDING MILL OPERATOR Virtual Visit [facility] Diabetes Education [address] [phone] Stephie aMhoney MD [address] [facility] 101 [place] [address] Federica Foster RN 420 [place], [place] 166615 01/09/2025 8:[address] [facility] Laboratory [address] [place] [phone] 01/16/2025 3:30 PM CDT Virtual Visit [facility] Endocrinology Clinic [address] [place] [phone] Stephie Mahoney MD [address] [place] [address] 404735 06/05/2025 12:30 PM CDT Office Visit [facility] Endocrinology Clinic [address] [phone] Stephie Mahoney MD [address] [place] [address] [phone] documented as of this encounter Visit Diagnoses Diagnosis Type 1 diabetes mellitus with hyperglycemia (H) Type I (juvenile type) diabetes mellitus without mention of complication, not stated as uncontrolled documented in this encounter Care Teams Environmental Services Supervisor Relationship Specialty [place] [address] [place] [address] PCP - General Family Practice 11/21/16 [place] [address] [place] [address] Assigned PCP 01/30/21 Stephie Mahoney MD [address] [place] [address] 427955 Endocrinology, Diabetes, and Metabolism 04/22/21 Federica Foster, RN [address] [place] [address] [phone] Head Automatic Sawyer Diabetes Education 04/22/[address] [place] [address] Head Automatic Sawyer Nutrition 04/22/21 Stephie Mahoney MD [address] [facility] 101 [place] [address] Assigned Endocrinology Provider 05/08/21 Olga Garcia, RN Specialty Assembly Line Leader INTERNAL MEDICINE - ENDOCRINOLOGY, DIABETES & METABOLISM 09/29/22 Junior Chavira MD [address] [place], [place] 5769[address] Cardiovascular Disease 05/29/24 documented as of this encounter
--- OUTSIDE RECORDS SUMMARY | 2024-07-02 08:23 | XMS_ITS | Encounter Summary ---
Author Organization [facility] Address [address] [place] [address]. [place] [address] Care Team Providers Care Tie Fastener Name Role Phone Wilber Vidales MD Primary Care Provider + Wilber Vidales MD Unavailable [phone] Stephie Mahoney MD Unavailable [phone] Federica Foster RN Unavailable [phone] Unavailable [phone] Stephie Mahoney MD Unavailable [phone] Olga Garcia RN Unavailable [phone] Encounter Details Date Type Department Care Team (Late st Contact Info) Description 04/18/2024 7:30 AM CDT [facility] [address] [place] [address] Hyperlipidemia LDL goal <100; Benign essential hypertension; Type 1 diabetes mellitus with hyperglycemia (H); Type 1 diabetes mellitus without complication (H); Elevated glucose Social History Tobacco Use Types Packs/Day Years [...] often do you attend chur ch or taoism services? More than 4 times per year 07/12/2023 Do you belong to any clubs o r organizations such as synagogue groups, unions, fraternal or athletic groups, or [...] Answer Date Recorded PHQ-2 Score 0 11/23/2023 [facility] [...] in an abandoned building, in an overnight retirement, or couch-surfing.) Yes 07/12/2023 Are you worried [...] AM CDT 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 NEEDLE GRADER Gender Identity Male 03/03/2019 9:24 PM CDT Sexual Orientation Straight 03/03/2019 9: 24 PM CDT documented as of this encounter Plan of Treatment Upcoming Encounters Date Type Department Care Team (Late st Contact Info) Description 07/11/2024 8:00 AM NEEDLE GRADER Office Visit [facility] Heart [facility] [address] [facility] [address] [place] [address] Junior Chavira MD [address] [place] [address] 07/30/2024 7:30 AM NEEDLE GRADER Appointment [facility] [address] [place] [phone] Candy Trivedi MD [address] [place] [address] 08/07/2024 1:30 PM NEEDLE GRADER Virtual Visit [facility] Diabetes Education [address] [phone] Stephie Mahoney MD [address] [place] [address] [phone] Federica Foster RN [address] [place], [place] [address] 01/09/2025 8:[address] [facility] [address] [place] [phone] 01/16/2025 3:30 PM CDT Virtual Visit [facility] Endocrinology Clinic [address] [phone] Stephie Mahoney MD [address] [place] [address] [phone] 06/05/2025 12:30 PM CDT Office Visit [facility] End[facility]inology [facility] [address] [phone] Stephie Mahoney MD [address] [place] [address] [phone] documented as of this encounter Procedures Procedure Name Priority Date/Time Associated Diagnosis Comments ALBUMIN RANDOM URINE QUANTITATIVE Routine 04/18/2024 7:45 [...] diabetes mellitus without complication (H) Elevated glucose documented in this encounter Results * Albumin Random Urine Quantitative with Creat Ratio (04/18/2024 7:45 AM CDT) Pathologist [facility] Creatinine Urine mg/dL 114.0 mg/dL 04/18/2024 1:46 [...] control, and institution of therapy with an duasxcksshs-jbamrvfdjd-gcbggc (JOANA) inhibitor (if the patient can tolerate it). ?? Urine URINE SPECIMEN / Unknown Non-blood Collection / Unknown 04/18/2024 7:45 AM CDT 04/18/2024 7:45 AM CDT us Stephie Mahoney MD LAB - URINE ORDERABLES Final Result U LABORATORY [facility] [place] [facility] [address] [facility], [address] [place] [address] * Tissue transglutaminase mike IgA and [...] Result UM SPECIALTY CORE/PROT/ENDO Specialty Core/Prot/Endo [address] [facility] [address] [facility], Room [address] [place], [place] [address] * (ABNORMAL) Hemoglobin A1c (04/18/2024 7:42 AM CDT) Hemoglobin A1C 6.7(H) 0.0 - 5.6 % 04/18/2024 7:47 AM CDT LABORATORY Comment: Normal <5.7% Prediabetes 5.7-6.4% ?? Diabetes 6.5% or higher Note: Adopted from ADA consensus guidelines. Blood BLOOD SPECIMEN / Unknown Venipuncture / Unknown 04/18/2024 7:42 AM CDT 04/18/2024 7:42 AM CDT Stephie Mahoney MD LAB - BLOOD ORDERABLES Final Result Performing Organization Address City/[facility]/ZIP Co de Phone Number LABORATORY [facility] [address] [facility] Lab (no room number, 1st floor of clinic) [place] [address], [facility] * (ABNORMAL) Basic metabolic panel (04/18/2024 7:42 AM CDT) Sodium 135 135 - 145 mmol/L 04/18/2024 1:50 PM CDT [facility] Potassium 4.2 3.4 - 5.3 mmol/L 04/18/2024 1:50 PM CDT [facility] Chloride 97(L) 98 - 107 mmol/L 04/18/2024 1:50 PM CDT [facility] Carbon Dioxide (CO2) 30(H) 22 - 29 mmol/L 04/18/2024 1:50 PM CDT [facility] Anion Gap 8 7 - 15 mmol/L 04/18/2024 1:50 PM CDT [facility] Urea Nitrogen 13.4 8.0 - 23.0 mg/dL 04/18/2024 1:50 PM CDT [facility] Creatinine 0.91 0.67 - 1.17 mg/dL 04/18/2024 1:50 PM CDT [facility] GFR Estimate >90 >60 mL/min/1.7 3m2 04/18/2024 1:50 PM CDT [facility] Comment:eGFR calculated usin 2020 CKD-EPI equation. Calcium 8.9 8.8 - 10.4 mg/dL 04/18/2024 1:50 PM CDT [facility] Comment:Reference intervals for this test were updated on 03/04/2024 to reflect our healthy population more accurately. There may be differences in the flagging of prior results with similar values performed with this method. Those prior results can be interpreted in the context of the updated reference intervals. Glucose 123(H) 70 - 99 mg/dL 04/18/2024 1:50 PM CDT [facility] Patient Fasting > 8hrs? Yes 04/18/2024 1:50 PM CDT [facility] Blood BLOOD SPECIMEN / Unknown Venipuncture / Unknown 04/18/2024 7:42 AM CDT 04/18/2024 7:42 AM CDT us Stephie Mahoney MD LAB - BLOOD ORDERABLES Final Result [facility] [place] [facility] [address] [facility], Room [address] [place], [place] [phone] * (ABNORMAL) Lipid Profile (04/18/2024 7:42 AM [...] LAB - BLOOD ORDERABLES Final Result LABORATORY [facility] [place] [facility] [address] [facility], [address] * TSH (04/18/2024 7:42 AM CDT) TSH 3.06 0.30 - 4.20 uIU/mL 04/18/2024 1:50 PM CDT [facility] Blood BLOOD SPECIMEN / Unknown Venipuncture / Unknown 04/18/2024 7:42 AM CDT 04/18/2024 7:42 AM CDT Stephie Mahoney MD LAB - BLOOD ORDERABLES Final Result LABORATORY [facility] [place] [facility] [address] [facility], [address] * 25 Hydroxyvitamin D2 and D3 (04/18/2024 7:42 AM CDT) 25 OH Vitamin D2 <5 ug/L 04/22/20 3:01 PM CDT UM SPECIAL DRUG/BGEN 25 OH Vitamin D3 32 ug/L 04/22/20 3:01 PM CDT UM SPECIAL DRUG/BGEN 25 OH Vit D Total <37 20 - 75 ug/L 04/22/2024 3:01 PM CDT UM SPECIAL DRUG/BGEN Comment:Season, race, dietar y intake, and treatment affect the concentration of 44-cdcbgys-Edbsubp D. Values may decrease during winter months [...] and its performance characteristics determined by the [facility], ??Special Chemistry Laboratory. It has not been cleared or approved by the FDA. The laboratory is regulated under CLIA as qualified to perform high-complexity testing. This test is used for clinical purposes. It should not be regarded as investigational or for research. us Stephie Mahoney MD LAB - BLOOD ORDERABLES Final Result UM SPECIAL DRUG/BGEN UM Special Drug/BGEN [address] [facility], Room [address] [place] [phone] documented in this encounter Visit Diagnoses Diagnosis Hyperlipidemia LDL goal <100 Other and unspecified hyperlipidemia Benign essential hypertension Essential hypertension, benign Type 1 diabetes mellitus with hyperglycemia (H) Type I (juvenile type) diabetes mellitus without mention of complication, not stated as uncontrolled Type 1 diabetes mellitus without complication (H) Type I (juvenile type) diabetes mellitus without mention of complication, not stated as uncontrolled Elevated glucose Other abnormal glucose documented in this encounter Care Teams Tie Fastener Relationship Specialty [place] [address] [facility] [address] PCP - General Family Practice 11/21/16 [place] [address] [facility] [address] Assigned PCP 01/30/21 Stephie Mahoney MD [address] [place] [address] [phone] Endocrinology, Diabetes, and Metabolism 04/22/21 Federica Foster RN [address] [place] [address] [phone] Private Watchman Diabetes Education 04/22/[address] [place] [address] Private Watchman Nutrition 04/22/21 Stephie Mahoney MD [address] [place] [address] [phone] Assigned Endocrinology Provider 05/08/21 Olga Garcia, RN Specialty Tumble Tailstock Turret Lathe Operator INTERNAL MEDICINE - ENDOCRINOLOGY, DIABETES & METABOLISM 09/29/22 documented as of this encounter
--- OUTSIDE RECORDS SUMMARY | 2024-07-02 08:23 | XMS_ITS | Encounter Summary ---
Author Organization [facility] Address [address] [place] [address]. [place] [address] Care Team Providers Care Diesel Power Shovel Operator Name Role Phone Wilber Vidales MD Primary Care Provider + Wilber Vidales MD Unavailable [phone] Stephie Mahoney MD Unavailable [phone] Federica Foster RN Unavailable [phone] Unavailable [phone] Stephie Mahoney MD Unavailable [phone] Olga Garcia RN Unavailable [phone] Matt Baez MD Unavailable [phone] Junior Chavira MD Unavailable [phone] Encounter Details Date Type Department Care Team (Late st Contact Info) Description 01/16/2023 [facility] [place] [facility] [address] 4th [place] [address] Dinah Velazquez Social History Tobacco [...] the phone with family, friends, or neighbors? Once a week 06/27/2021 How often do you get togethe r with friends or relatives? Once a week 06/27/2021 How often do you attend chur or druze services? More than 4 times per year 06/27/2021 Do you belong to any clubs o r organizations such as sabianism groups, unions, fraternal or athletic groups, or school groups? No 06/27/2021 Attends Club or Organization Meetings Not on rosa e 06/27/2021 Are you , , di vorced, , never , or living with a partner? 06/27/2021 AUDIT-C Answer Date Recorded Q1: How often do you have a drink containing alc ohol? 2-4 times a month 06/27/2021 Q2: How many drinks containi ng alcohol do you have on a typical day when you are drinking? 3 or 4 06/27/2021 Q3: How often do you have si x or more drinks on one occasion? Never 06/27/2021 Overall Financial Resource Strain (CARDIA) Answe r Date Recorded How hard is it for you to pa y for the very basics like food, housing, medical care, and heating? Not hard at all 06/27/2021 PHQ-2 Answer Date Recorded PHQ-2 Score 0 09/29/2022 [facility]ational Stress Questionnaire Answer Date Recorded Do you feel stress - tense, restless, nervous, or anxious, or unable to sleep at night because your mind is troubled all the time - these days? Not at all 06/27/2021 Exercise Vital Sign Answer Date Recorde d On average, how many days pe r week do you engage in moderate to strenuous exercise (like a brisk walk)? 4 days 06/27/2021 On average, how many minutes do you engage in exercise at this level? 30 min 06/27/2021 Hunger Vital Sign Answer Date Recorded Within the past 12 months, y ou worried that your food would run out before you got the money to buy more. Never true 06/27/20 21 Within the past 12 months, t he food you bought just didn't last and you didn't have money to get more. Never true 06/27/2021 PRAPARE - Transportation Answer Date Re corded In the past 12 months, has l ack of transportation kept you from medical appointments or from getting medications? No 03/2021 In the past 12 months, has l ack of transportation kept you from meetings, work, or from getting things needed for daily living? No 06/27/2021 Housing Stability Vital Sign Answer Azeem e Recorded In the last 12 months, was t here a time when you were not able to pay the mortgage or rent on time? No 06/27/2021 In the last 12 months, how many places have you lived? 1 06/27/2021 In the last 12 months, was t here a time when you did not have a steady place to sleep or slept in a assisted (including now)? No 06/27/2021 Education Answer Date Recorded What is the highest level of school you have completed or the highest degree you have received? Bachelor's degree (e.g., BA, AB, BS) 03/17/2019 Sex and Gender Information Value Date Recorded Sex Assigned at Male 06/07/2019 7:29 AM CDT 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 PROFESSOR OF FAMILY MEDICINE Gender Identity Male 03/03/2019 9:24 PM CDT Sexual Orientation Straight 03/03/2019 9: 24 PM CDT COVID-19 Exposure Response Date Recorded In the last 10 days, have yo u been in contact with someone who was confirmed or suspected to have Coronavirus/COVID-19? No / Unsure 01/17/2023 2:44 PM CDT documented as of this encounter Plan of Treatment Upcoming Encounters Date Type Department Care Team (Late st Contact Info) Description 07/11/2024 8:00 AM PROFESSOR OF FAMILY MEDICINE Office Visit [facility] Heart [facility] [address] [facility] [address] [place] [address] Junior Chavira MD [address] [place] [id number] 07/30/2024 7:30 AM PROFESSOR OF FAMILY MEDICINE Appointment [facility] Specialty Care [address] [facility] [address] [place] [address] Candy Trivedi MD [address] [place] [address] 08/07/2024 1:30 PM PROFESSOR OF FAMILY MEDICINE Virtual Visit [facility] Diabetes Education [address] [phone] Stephie Mahoney MD [address] [place] [address] [phone] Federica Foster RN [address] [place] [address] [phone] 01/09/2025 8:00 AM CDT Lab [facility] [address] [place] [phone] 01/16/2025 3:30 PM CDT Virtual Visit [facility] Endocrinology Clinic [address] [phone] Stephie Mahoney MD [address] [place] [address] [phone] 06/05/2025 12:30 PM CDT Office Visit [facility] Endocrinology [address] [phone] Stephie Mahoney MD [address] [place] [address] documented as of this encounter Visit Diagnoses Not on filedocumented in this encounter Care Teams Diesel Power Shovel Operator Relationship Specialty [place] [address] [facility] [place] [address] PCP - General Family Practice 11/21/16 [place] [address] [place] [address] Assigned PCP 01/30/21 Stephie Mahoney MD [address] [address] Endocrinology, Diabetes, and Metabolism 04/22/21 Federica Foster, RN 420 [place] [address] [facility] Education 04/22/[address] [place] [address] [facility] Nutrition 04/22/21 Stephie Mahoney MD [address] [address] Assigned Endocrinology Provider 05/08/21 Olga Garcia, RN Specialty Bit Tapper INTERNAL MEDICINE - ENDOCRINOLOGY, DIABETES & METABOLISM 09/29/22 Matt Baez MD [address] [facility] [address] [place] [id number] Assigned Heart and Vascular Provider 12/23/22 05/04/23 Junior Chavira MD [address] [place] [address] Cardiovascular Disease 05/29/24 documented as of this encounter
--- OUTSIDE RECORDS SUMMARY | 2024-07-02 08:23 | XMS_ITS | Encounter Summary ---
Author Organization [facility] Address [address] [place] [address]. [place] [address] Care Team Providers Care Geek Squad Manager Name Role Phone Wilber Vidales MD Primary Care Provider + Wilber Vidales MD Unavailable [phone] Stephie Mahoney MD Unavailable [phone] Federica Foster RN Unavailable [phone] Unavailable [phone] Stephie Mahoney MD Unavailable [phone] Olga Garcia RN Unavailable [phone] Encounter Details Date Type Department Care Team (Late st Contact Info) Description 04/25/2024 Telephone [facility] Endocrinology Clinic [place] [address] [facility] [address] 3rd [place] [address] Stephie Mahoney MD 420 [facility] [address] [place] [address] Social History Tobacco Use Types [...] often do you attend chur ch or mandaeism services? More than 4 times per year 07/12/2023 Do you belong to any clubs o r organizations such as gnosticism groups, unions, fraternal or athletic groups, or [...] 0 11/23/2023 [facility] - Occupational Stress Questionnaire Answer [...] AM CDT 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 SPORTS INTERNSHIP Gender Identity Male 03/03/2019 9:24 PM CDT Sexual Orientation Straight 03/03/2019 9: 24 PM CDT documented as of this encounter Miscellaneous Notes * Telephone Encounter - Stephie Mahoney MD - 04/25/2024 9:57 AM CDT Called pt- pt not in - left message - Dear aSnty Here are your labs which look really good -the main finding is that your LDL is a bit higher. Are you taking your atorvastatin/Lipitor? Did you miss any doses? Everything else looked great. If you have any questions, please feel free to contact my nurse at [phone] select option #3 for triage nurse or option #1 for scheduling related questions. Regards Stephie Mahoney MD No visits with results within 1 Week(s) from this visit. Latest known visit with results is: Lab on 04/18/2024 Component Date Value Ref Range Status 25 OH Vitamin D2 04/18/2024 <5 ug/L Final 25 OH Vitamin D3 04/18/2024 32 ug/L Final 25 OH Vit D Total 04/18/2024 <37 20 - 75 ug/L Final Season, race, dietary intake, and treatment affect the concentration of 00-whmbbof-Hqdbboz D. Values may decrease during winter months [...] pressure control, and institution of therapy withan qbcrdleezgc-axgpytyktm-vupbem (JOANA) inhibitor (if the patient can tolerate [...] I* 04/18/2024 <0.6 <7.0 U/mL Final Negative documented in this encounter Plan of Treatment Upcoming Encounters Date Type Department Care Team (Late st Contact Info) Description 07/11/2024 8:00 AM SPORTS INTERNSHIP Office Visit [facility] Heart [facility] [address] [place] [phone] Junior Chavira MD [address] [place] [address] 07/30/2024 7:30 AM SPORTS INTERNSHIP Appointment [facility] Specialty Care [address] [place] [phone] Candy Trivedi MD [address] [place] [id number] 08/07/2024 1:30 PM SPORTS INTERNSHIP Virtual Visit [facility] Diabetes Education [address] [phone] Stephie Mahoney MD [address] [place] [address] [phone] Federica Foster RN [address] [place], [place] 7[address] 01/09/2025 8:00 AM CDT Lab [facility] [address] [place] [phone] 01/16/2025 3:30 PM CDT Virtual Visit [facility] Endocrinology Clinic [address] [phone] Stephie Mahoney MD [address] [place] [address] [phone] 06/05/2025 12:30 PM CDT Office Visit [facility] Endocrinology Clinic [address] [phone] Stephie Mahoney MD [address] [place] [address] documented as of this encounter Visit Diagnoses Not on filedocumented in this encounter Care Teams Geek Squad Manager Relationship Specialty [place] [address] [place] [address] PCP - General Family Practice 11/21/16 [place] [address] [place] [address] Assigned PCP 01/30/21 Stephie Mahoney MD [address] [place] [address] Endocrinology, Diabetes, and Metabolism 04/22/21 Federica Foster RN [address] [place] [address] Social Science Research Assistant Diabetes Education 04/22/[address] [place] [address] Social Science Research Assistant Nutrition 04/22/21 Stephie Mahoney MD [address] [place] [address] Assigned Endocrinology Provider 05/08/21 Olga Garcia, RN Specialty Pick Up INTERNAL MEDICINE - ENDOCRINOLOGY, DIABETES & METABOLISM 09/29/22 documented as of this encounter
--- OUTSIDE RECORDS SUMMARY | 2024-07-02 08:23 | XMS_ITS | Encounter Summary ---
Author Organization [place] Address [address] [place] [address]. [place] [address] Care Team Providers Care Cardiothoracic Icu Rn Name Role Phone Wilber Vidales MD Primary Care Provider + Wilber Vidales MD Unavailable [phone] Stephie Mahoney MD Unavailable [phone] Federica Foster RN Unavailable [phone] Unavailable [phone] Stephie Mahoney MD Unavailable [phone] Olga Garcia RN Unavailable [phone] Junior Chavira MD Unavailable [phone] Encounter Details Date Type Department Care Team (Late st Contact Info) Description 01/28/2024 MyC Medical Advice [facility] Diabetes Education [address] 3rd [place] [address], [address] [facility] [address], [place] [address] Social History Tobacco Use Types Packs/Day Years [...] often do you attend chur ch or buddhism services? More than 4 times per year 07/12/2023 Do you belong to any clubs o r organizations such as scientology groups, unions, fraternal or athletic groups, or [...] Answer Date Recorded PHQ-2 Score 0 11/23/2023 [facility] ional Health - Occupational [...] AM CDT 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 DUPLICATING MACHINE MECHANIC Gender Identity Male 03/03/2019 9:24 PM CDT Sexual Orientation Straight 03/03/2019 9: 24 PM CDT documented as of this encounter Plan of Treatment Upcoming Encounters Date Type Department Care Team (Late st Contact Info) Description 07/11/2024 8:00 AM DUPLICATING MACHINE MECHANIC Office Visit [facility] [address] [place] [address] [address] [place] [address] Junior Chavira MD [address] [place] [address] 07/30/2024 7:30 AM DUPLICATING MACHINE MECHANIC Appointment [facility] Specialty Care [address] [place] [phone] Candy Trivedi MD [address] [facility] [address] [place] [address] 08/07/2024 1:30 PM DUPLICATING MACHINE MECHANIC Virtual Visit [facility] Diabetes Education [address] [phone] Stephie Mahoney MD [address] [place] [address] 790775 Federica Foster RN 420 [place] [address] 01/09/2025 8:00 AM CDT Lab [facility] Laboratory [address] [place] [phone] 01/16/2025 3:30 PM CDT Virtual Visit [facility] Endocrinology Clinic [address] [phone] Stephie Mahoney MD [address] [place] [address] 441635 06/05/2025 12:30 PM CDT Office Visit [facility] Endocrinology Clinic [address] [phone] Stephie Mahoney MD [address] [place] [address] 952735 documented as of this encounter Visit Diagnoses Not on filedocumented in this encounter Care Teams Cardiothoracic Icu Rn Relationship Specialty [place] [address] [place] [address] PCP - General Family Practice 11/21/16 [place] [address] [address] [address] Assigned PCP 01/30/21 Stephie Mahoney MD [address] [place] [address] 658175 Endocrinology, Diabetes, and Metabolism 04/22/21 Federica Foster, RN [address] [place] [address] [phone] Spice Grinder Diabetes Education 04/22/[address] [place] [address] [phone] Spice Grinder Nutrition 04/22/21 Stephie Mahoney MD [address] [place] [address] 340635 Assigned Endocrinology Provider 05/08/21 Olga Garcia RN Specialty New Car Driver INTERNAL MEDICINE - ENDOCRINOLOGY, DIABETES & METABOLISM 09/29/22 Junior Chavira MD [address] [place] [address] Cardiovascular Disease 05/29/24 documented as of this encounter
--- OUTSIDE RECORDS SUMMARY | 2024-07-02 08:23 | XMS_ITS | Encounter Summary ---
Author Organization [place] Address [address] [place] [address]. [place] [address] Care Team Providers Care Director Patient Accounting Name Role Phone Wilber Vidales MD Primary Care Provider + Wilber Vidales MD Unavailable [phone] Stephie Mahoney MD Unavailable [phone] Federica Foster RN Unavailable [phone] Unavailable [phone] Stephie Mahoney MD Unavailable [phone] Olga Garcia RN Unavailable [phone] Matt Baez MD Unavailable [phone] Junior Chavira MD Unavailable [phone] Encounter Details Date Type Department Care Team (Late st Contact Info) Description 01/24/[address] [facility] Endocrinology Clinic [place] [address] [facility] [address] 3rd [place] [address] Stephie Mahoney MD [address] [place] [address] [address] [place] [address] Social History Tobacco Use Types [...] How often do you attend chur or judaism services? More than 4 times per year 06/27/2021 Do you belong to any clubs o r organizations such as episcopalian groups, unions, fraternal or athletic groups, or [...] Answer Date Recorded PHQ-2 Score 0 09/29/2022 [facility] - Occupational Stress Questionnaire Answer Date [...] place to sleep or slept in a long term (including now)? No 06/27/2021 Education Answer Date Recorded What is the highest level of school you have completed or the highest degree you have received? Bachelor's degree (e.g., BA, AB, BS) 03/17/2019 Sex and Gender Information Value Date Recorded Sex Assigned at Male 06/07/2019 7:29 AM CDT 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 TRUCK TRAILER FINAL INSPECTOR Gender Identity Male 03/03/2019 9:24 PM CDT [...] st Contact Info) Description 07/11/2024 8:00 AM TRUCK TRAILER FINAL INSPECTOR Office Visit [address] [place] [address] Junior Chavira MD [address] [place] [address] 07/30/2024 7:30 AM TRUCK TRAILER FINAL INSPECTOR Appointment [facility] Specialty Care [address] [place] [phone] Candy Trivedi MD [address] [place] [address] 08/07/2024 1:30 PM TRUCK TRAILER FINAL INSPECTOR Virtual Visit [facility] Diabetes Education [address] [phone] Stephie Mahoney MD [address] [place] [address] 614785 Federica Foster RN 420 [place] [address] 01/09/2025 8:00 AM CDT Lab [facility] [address] [place] [address] 01/16/2025 3:30 PM CDT Virtual Visit [facility] Endocrinology Clinic [address] [phone] Stephie Mahoney MD [address] [place] [address] 513165 06/05/2025 12:30 PM CDT Office Visit [facility] Endocrinology Clinic [address] [phone] Stephie Mahoney MD [address] [place] [address] 543395 documented as of this encounter Visit Diagnoses Not on filedocumented in this encounter Care Teams Director Patient Accounting Relationship Specialty [place] [address] [place] [address] PCP - General Family Practice 11/21/16 [place] [address] [place] [address] Assigned PCP 01/30/21 Stephie Mahoney MD [address] [place] [address] 804065 Endocrinology, Diabetes, and Metabolism 04/22/21 Federica Foster, RN 420 [place], [place] 793975 Sponge Fisherman Diabetes Education 04/22/21 Tova Welch, RD [address] [place] [address] 436674 Sponge Fisherman Nutrition 04/22/21 Stephie Mahoney MD [address] [place] [address] 944575 Assigned Endocrinology Provider 05/08/21 Olga Garcia, RN Specialty Commercial Title Examiner INTERNAL MEDICINE - ENDOCRINOLOGY, DIABETES & METABOLISM 09/29/22 Matt Baez MD [address] [place] [address] [place] [address] Assigned Heart and Vascular Provider 12/23/22 05/04/23 Junior Chavira MD [address] [place] 879115 Cardiovascular Disease 05/29/24 documented as of this encounter
--- OUTSIDE RECORDS SUMMARY | 2024-07-02 08:23 | XMS_ITS | Encounter Summary ---
Author Organization [place] Address [address] [place] [address]. [place] [address] Care Team Providers Care Tower Helper Name Role Phone Wilber Vidales MD Primary Care Provider + Wilber Vidales MD Unavailable [phone] Stephie Mahoney MD Unavailable [phone] Federica Foster RN Unavailable [phone] Unavailable [phone] Stephie Mahoney MD Unavailable [phone] Olga Garcia RN Unavailable [phone] Matt Baez MD Unavailable [phone] Junior Chavira MD Unavailable [phone] Encounter Details Date Type Department Care Team (Late st Contact Info) Description 04/13/[address] [facility] Endocrinology Clinic [place] [address] [facility] [address] 3rd [place] [address] Stephie Mahoney MD [address] [place] [address] 101 [place] [address] Social History Tobacco Use Types [...] any clubs o r organizations such as hindu groups, unions, fraternal or athletic groups, or [...] PHQ-2 Answer Date Recorded PHQ-2 Score 0 03/30/2023 [facility] [place] - Occupational Stress Questionnaire Answer Date Recorded [...] place to sleep or slept in a care home (including now)? No 06/27/2021 Education Answer Date Recorded What is the highest level of school you have completed or the highest degree you have received? Bachelor's degree (e.g., BA, AB, BS) 03/17/2019 Sex and Gender Information Value Date Recorded Sex Assigned at Male 06/07/2019 7:29 AM CDT 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 GUNITE MIXER Gender Identity Male 03/03/2019 9:24 PM CDT Sexual Orientation Straight 03/03/2019 9: 24 PM CDT documented as of this encounter Plan of Treatment Upcoming Encounters Date Type Department Care Team (Late st Contact Info) Description 07/11/2024 8:00 AM GUNITE MIXER Office Visit [facility] Heart Clinic [place] [address] [facility] [address] [place] [phone] Junior Chavira MD [address] [place] [address] 07/30/2024 7:30 AM GUNITE MIXER Appointment [facility] Specialty Care [address] [facility] [address] [place] [phone] Candy Trivedi MD [address] [place] [address] 08/07/2024 1:30 PM GUNITE MIXER Virtual Visit [facility] Diabetes Education [address] [phone] Stephie Mahoney MD [address] [place] [address] 902795 Federica Foster RN [address] [place] [address] 01/09/2025 8:00 AM CDT Lab [facility] Laboratory [address] [place] [phone] 01/16/2025 3:30 PM CDT Virtual Visit [facility] Endocrinology Clinic [address] [phone] Stephie Mahoney MD [address] [place] [address] 06/05/2025 12:30 PM CDT Office Visit [facility] Endocrinology [address] [phone] Stephie Mahoney MD [address] [place] [address] 548505 documented as of this encounter Visit Diagnoses Not on filedocumented in this encounter Care Teams Tower Helper Relationship Specialty [place] [address] [place] [address] PCP - General Family Practice 11/21/16 [place] [address] [place] [address] Assigned PCP 01/30/21 Stephie Mahoney MD [address] [phone] Endocrinology, Diabetes, and Metabolism 04/22/21 Federica Foster, RN 420 [place], [place] 498415 News Production Supervisor Diabetes Education 04/22/[address] [place] [address] [phone] News Production Supervisor Nutrition 04/22/21 Stephie Mahoney MD [address] [address] Assigned Endocrinology Provider 05/08/21 Olga Garcia, RN Specialty Eyeglass Fitter INTERNAL MEDICINE - ENDOCRINOLOGY, DIABETES & METABOLISM 09/29/22 Matt Baez MD [address] [facility] [address] [place], [place] 988135 Assigned Heart and Vascular Provider 12/23/22 05/04/23 Junior Chavira MD [address] [place], [place] 108805 Cardiovascular Disease 05/29/24 documented as of this encounter
--- OUTSIDE RECORDS SUMMARY | 2024-07-02 08:23 | XMS_ITS | Encounter Summary ---
Author Organization [facility] Address [address] [place] [address]. [place] [address] Care Team Providers Care Media Law Faculty Member Name Role Phone Wilber Vidales MD Primary Care Provider + Wilber Vidales MD Unavailable [phone] Stephie Mahoney MD Unavailable [phone] Federica Foster RN Unavailable [phone] Unavailable [phone] Stephie Mahoney MD Unavailable [phone] Olga Garcia RN Unavailable [phone] Encounter Details Date Type Department Care Team (Latest Contact Info) Description 04/18/2024 Travel Social History Tobacco Use Types Packs/Day [...] week 07/12/2023 How often do you attend [facility] or cheondoism services? More than 4 times per year 07/12/2023 Do you belong to any clubs o r organizations such as samaritan groups, unions, fraternal or athletic groups, or [...] Answer Date Recorded PHQ-2 Score 0 11/23/2023 [facility] of Occupat ional Health - Occupational Stress [...] AM CDT 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 ENVIRONMENTAL FIELD OFFICE MANAGER Gender Identity Male 03/03/2019 9:24 PM CDT Sexual Orientation Straight 03/03/2019 9: 24 PM CDT documented as of this encounter Plan of Treatment Upcoming Encounters Date Type Department Care Team (Late st Contact Info) Description 07/11/2024 8:00 AM ENVIRONMENTAL FIELD OFFICE MANAGER Office Visit [facility] Heart [facility] [address] [facility] [address] [place] [phone] Junior Chavira MD [address] [place] 412[address] 07/30/2024 7:30 AM ENVIRONMENTAL FIELD OFFICE MANAGER Appointment [facility] Specialty Care [address] [place] [address] 160 [place] [phone] Candy Trivedi MD [address] [address] [place] 809625 08/07/2024 1:30 PM ENVIRONMENTAL FIELD OFFICE MANAGER Virtual Visit [facility] Diabetes Education [address] [phone] Stephie Mahoney MD [address] [place] [address] Federica Foster RN 420 [place] [address] 01/09/2025 8:00 AM CDT Lab [facility] Laboratory [address] [place] [phone] 01/16/2025 3:30 PM CDT Virtual Visit [facility] Endocrinology Clinic [address] [phone] Stephie Mahoney MD [address] [place] [address] 388865 06/05/2025 12:30 PM CDT Office Visit [facility] Endocrinology Clinic [address] [phone] Stephie Mahoney MD [address] [place] [address] documented as of this encounter Visit Diagnoses Not on filedocumented in this encounter Care Teams Media Law Faculty Member Relationship Specialty [place] [address] [place] [address] PCP - General Family Practice 11/21/16 [place] [address] [place] [address] Assigned PCP 01/30/21 Stephie Mahoney MD [address] [place] [address] Endocrinology, Diabetes, and Metabolism 04/22/21 Federica Foster, RN [address] [place] [address] Loading Dock Hand Diabetes Education 04/22/[address] [place] [address] Loading Dock Hand Nutrition 04/22/21 Stephie Mahoney MD [address] [place] [address] Assigned Endocrinology Provider 05/08/21 Olga Garcia RN Specialty Director Marketing Communications INTERNAL MEDICINE - ENDOCRINOLOGY, DIABETES & METABOLISM 09/29/22 documented as of this encounter
--- OUTSIDE RECORDS SUMMARY | 2024-07-02 08:23 | XMS_ITS | Encounter Summary ---
Author Organization [place] Address [address] [place] [address]. [place] [address] Care Team Providers Care 6Th Grade Teacher Name Role Phone Wilber Vidales MD Primary Care Provider + Wilber Vidales MD Unavailable [phone] Stephie Mahoney MD Unavailable [phone] Federica Foster RN Unavailable [phone] Unavailable [phone] Stephie Mahoney MD Unavailable [phone] Olga Garcia RN Unavailable [phone] Matt Baez MD Unavailable [phone] Junior Chavira MD Unavailable [phone] Encounter Details Date Type Department Care Team (Late st Contact Info) Description 01/24/2023 MyC Medical Advice [facility] Heart [facility] [address] [place] [address] [address] [place] [address] Matt Baez MD [address] [facility] [address] [place], [place] 0[address] Social History Tobacco Use Types Packs/Day Years [...] How often do you attend chur or episcopalian services? More than 4 times per year 06/27/2021 Do you belong to any clubs o r organizations such as mu-ism groups, unions, fraternal or athletic groups, or [...] Answer Date Recorded PHQ-2 Score 0 09/29/2022 [facility] Occupational Stress Questionnaire Answer Date Recorded [...] place to sleep or slept in a jail (including now)? No 06/27/2021 Education Answer Date Recorded What is the highest level of school you have completed or the highest degree you have received? Bachelor's degree (e.g., BA, AB, BS) 03/17/2019 Sex and Gender Information Value Date Recorded Sex Assigned at Male 06/07/2019 7:29 AM CDT 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 SUPPLY CHAIN COORDINATOR Gender Identity Male 03/03/2019 9:24 PM CDT Sexual Orientation Straight 03/03/2019 9: 24 PM CDT COVID-19 Exposure Response Date Recorded In the last 10 days, have yo u been in contact with someone who was confirmed or suspected to have Coronavirus/COVID-19? No / Unsure 01/17/2023 2:44 PM CDT documented as of this encounter Miscellaneous Notes * Telephone Encounter - Celeste Sandoval RN - 01/24/2023 9:16 AM CDT Pt has a chadsvasc of 2-3 and has not had A Fib per OV note in 2 years. Pt has a history of Stroke and AVR in 2019. Pt is ok to hold for 3 days and then restart as soon as is safe from a bleeding risk. JNelsonRN documented in this encounter Plan of Treatment Upcoming Encounters Date Type Department Care Team (Late st Contact Info) Description 07/11/2024 8:00 AM SUPPLY CHAIN COORDINATOR Office Visit [facility] Heart [facility] [address] [facility] [address] [place] [phone] Junior Chavira MD [address] [place], [place] [address] 07/30/2024 7:30 AM SUPPLY CHAIN COORDINATOR Appointment [facility] Specialty Care [address] [facility] [address] [place] [phone] Candy Trivedi MD [address] [place] [address] 08/07/2024 1:30 PM SUPPLY CHAIN COORDINATOR Virtual Visit [facility] Diabetes Education [address] [phone] Stephie Mahoney MD [address] [place] [address] 974195 Federica Foster, RN 420 [place] [address] 01/09/2025 8:00 AM CDT Lab [facility] Laboratory [address] [place] [phone] 01/16/2025 3:30 PM CDT Virtual Visit [facility] Endocrinology [address] [phone] Stephie Mahoney MD [address] [place] [address] 483545 06/05/2025 12:30 PM CDT Office Visit [facility] Endocrinology [address] [place] [phone] Stephie Mahoney MD [address] 289425 documented as of this encounter Visit Diagnoses Not on filedocumented in this encounter Care Teams 6Th Grade Teacher Relationship Specialty [place] [address] [address] [id number] PCP - General Family Practice 11/21/16 [place] [address] [address] [address] Assigned PCP 01/30/21 Stephie Mahoney MD [address] [place] [address] 888105 Endocrinology, Diabetes, and Metabolism 04/22/21 Federica Foster, RN [address] [place] [address] [phone] Applied Biology Professor Diabetes Education 04/22/[address] [place] [address] 798434 Applied Biology Professor Nutrition 04/22/21 Stephie Mahoney MD [address] [place] [address] 037425 Assigned Endocrinology Provider 05/08/21 Olga Garcia, RN Specialty Director Medicare Sales INTERNAL MEDICINE - ENDOCRINOLOGY, DIABETES & METABOLISM 09/29/22 Matt Baez MD [address] [facility] [address] [place] [address] Assigned Heart and Vascular Provider 12/23/22 05/04/23 Junior Chavira MD [address] [place] 325885 Cardiovascular Disease 05/29/24 documented as of this encounter
--- OUTSIDE RECORDS SUMMARY | 2024-07-02 08:23 | XMS_ITS | Encounter Summary ---
Author Organization [place] Address [address] [place] [address]. [place] [address] Care Team Providers Care Die Technician Name Role Phone Wilber Vidales MD Primary Care Provider + Wilber Vidales MD Unavailable [phone] Stephie Mahoney MD Unavailable [phone] Federica Foster RN Unavailable [phone] Unavailable [phone] Stephie Mahoney MD Unavailable [phone] Olga Garcia RN Unavailable [phone] Matt Baez MD Unavailable [phone] Junior Chavira MD Unavailable [phone] Encounter Details Date Type Department Care Team (Late st Contact Info) Description 01/25/[address] [facility]ology [facility] [address] 4th [place] [address] Sandra Villagomez Social History Tobacco Use Types Packs/Day Years [...] How often do you attend chur or gnosticist services? More than 4 times per year 06/27/2021 Do you belong to any clubs o r organizations such as pentecostalism groups, unions, fraternal or athletic groups, or [...] Answer Date Recorded PHQ-2 Score 0 09/29/2022 [facility] of Occupat ional Health - [...] place to sleep or slept in a detention (including now)? No 06/27/2021 Education Answer Date Recorded What is the highest level of school you have completed or the highest degree you have received? Bachelor's degree (e.g., BA, AB, BS) 03/17/2019 Sex and Gender Information Value Date Recorded Sex Assigned at Male 06/07/2019 7:29 AM CDT 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 ENVIRONMENTAL PROTECTION INSPECTOR Gender Identity Male 03/03/2019 9:24 PM [...] Contact Info) Description 07/11/2024 8:00 AM ENVIRONMENTAL PROTECTION INSPECTOR Office [facility] [address] [facility] [place] [phone] Junior Chavira MD [address] [place] [address] 07/30/2024 7:30 AM ENVIRONMENTAL PROTECTION INSPECTOR Appointment [facility] [address] [place] [phone] Candy Trivedi MD [address] [place] [address] 08/07/2024 1:30 PM ENVIRONMENTAL PROTECTION INSPECTOR Virtual Visit [facility] Diabetes Education [address] [phone] Stephie Mahoney MD [address] [place] [address] 451615 Federica Foster RN [address] [place] [address] 043145 01/09/2025 8:00 AM CDT Lab [facility] Laboratory [address] [place] [phone] 01/16/2025 3:30 PM CDT Virtual Visit [facility] Endocrinology [facility] [address] [phone] Stephie Mahoney MD [address] [place] [address] 615815 06/05/2025 12:30 PM CDT Office Visit [facility] [address] [phone] Stephie Mahoney MD [address] [place] [address] documented as of this encounter Visit Diagnoses Not on filedocumented in this encounter Care Teams Die Technician Relationship Specialty [place] [address] [place] [address] PCP - General Family Practice 11/21/16 [place] [address] [place] [address] Assigned PCP 01/30/21 Stephie Mahoney MD [address] [address] Endocrinology, Diabetes, and Metabolism 04/22/21 Federica Foster RN 420 [place] [address] Physician President Diabetes Education 04/22/[address] [place] [address] Physician President Nutrition 04/22/21 Stephie Mahoney MD [address] [place] [address] Assigned Endocrinology Provider 05/08/21 Olga Garcia RN Specialty Chart Calculator INTERNAL MEDICINE - ENDOCRINOLOGY, DIABETES & METABOLISM 09/29/22 Matt Baez MD [address] [facility] [address] [place] [address] Assigned Heart and Vascular Provider 12/23/22 05/04/23 Junior Chavira MD [address] [place] 6248[address] Cardiovascular Disease 05/29/24 documented as of this encounter
--- OUTSIDE RECORDS SUMMARY | 2024-07-02 08:23 | XMS_ITS | Encounter Summary ---
Author Organization [place] Address [address] [place] [address]. [place] [address] Care Team Providers Care Sales Representative Trainee Name Role Phone Wilber Vidales MD Primary Care Provider + Wilber Vidales MD Unavailable [phone] Stephie Mahoney MD Unavailable [phone] Federica Foster RN Unavailable [phone] Unavailable [phone] Stephie Mahoney MD Unavailable [phone] Olga Garcia RN Unavailable [phone] Reason for Visit * Reason Onset Date Comments Appointment 04/25/2024 Follow-up in May [facility] Encounter Details Date Type Department Care Team (Late st Contact Info) Description 04/25/2024 Telephone [facility] Endocrinology Clinic [place] [address] [facility] [address] 3rd [place] [address] Stephie Mahoney MD [address] [facility] [address] [place] [address] Appointment (Follow-up in May ) Social History Tobacco Use Types Packs/Day Years [...] often do you attend chur ch or sikhism services? More than 4 times per year 07/12/2023 Do you belong to any clubs o r organizations such as lutheran groups, unions, fraternal or athletic groups, or [...] Answer Date Recorded PHQ-2 Score 0 11/23/2023 [facility] of Occupat ional Health - [...] AM CDT 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 PATIENT INTAKE COORDINATOR Gender Identity Male 03/03/2019 9:24 PM CDT Sexual Orientation Straight 03/03/2019 9: 24 PM CDT documented as of this encounter Miscellaneous Notes * Telephone Encounter - Zee Hanna - 04/28/2024 9:12 AM CDT Images from the original note were not included. Left Voicemail (2nd Attempt) for the patient to call back and schedule the following: Appointment type: return diabetes Provider: Denzel Return date: in person add on 05/30/24 after the last pt of the day (currently that would be 1 pm) Specialty phone number: [phone] Additional appointment(s) needed: Additonal Notes: LVM x2, MyC x1 Stephie Mahoney MD P Clinic [id number]-Yl I am willing to him in person on May 30 if he would like. *This is not a scheduled slot in [facility]. You will have to manually add this patient onto the providers schedule by hitting select a time under the providers name when scheduling to add this patient by date, time, and location as stated above. Thank you* Zee Hanna on 04/28/2024 at 9:12 AM * Telephone Encounter - Zee Hanna - 04/25/2024 1:16 PM CDT Images from the original note were not included. Left Voicemail (1st Attempt) for the patient to call back and schedule the following: Appointment type: return diabetes Provider: Denzel Return date: in person add on 05/30/24 after the last pt of the day (currently that would be 1 pm) Specialty phone number: [phone] Additional appointment(s) needed: Additonal Notes: LVM, MyC x1 Stephie Mahoney MD P Clinic [id number]-Fpjd-Lr I am willing to him in person on May 30 if he would like. *This is not a scheduled slot in [facility]. You will have to manually add this patient onto the providers schedule by hitting select a time under the providers name when scheduling to add this patient by date, time, and location as stated above. Thank you* Zee Hanna on 04/25/2024 at 1:17 PM documented in this encounter Plan of Treatment Upcoming Encounters Date Type Department Care Team (Late st Contact Info) Description 07/11/2024 8:00 AM PATIENT INTAKE COORDINATOR Office Visit [facility] [address] [facility] [address] [place] [phone] Junior Chavira MD [address] [place] [address] 07/30/2024 7:30 AM PATIENT INTAKE COORDINATOR Appointment [facility] Specialty Care [address] [facility] [address] [place] [phone] Candy Trivedi MD [address] [place] [address] 08/07/2024 1:30 PM PATIENT INTAKE COORDINATOR Virtual Visit [facility] Diabetes Education [address] [phone] Stephie Mahoney MD [address] [place] [address] [phone] Federica Foster RN 420 [place], [place] [address] 01/09/2025 8:00 AM CDT Lab [facility] Laboratory [address] [place] [address] 01/16/2025 3:30 PM CDT Virtual Visit [facility] Endocrinology Clinic [address] [phone] Stephie Mahoney MD [address] [place] [address] 937395 06/05/2025 12:30 PM CDT Office Visit [facility] Endocrinology Clinic [address] [phone] Stephie Mahoney MD [address] [place] [address] 647945 documented as of this encounter Visit Diagnoses Not on filedocumented in this encounter Care Teams Sales Representative Trainee Relationship Specialty [place] [address] [place] [address] PCP - General Family Practice 11/21/16 [place] [address] [place] [address] Assigned PCP 01/30/21 Stephie Mahoney MD [address] [place] [address] Endocrinology, Diabetes, and Metabolism 04/22/21 Federica Foster, RN [address] [place] [address] Rn Triage Diabetes Education 04/22/[address] [place] [address] Rn Triage Nutrition 04/22/21 Stephie Mahoney MD [address] [place] [address] Assigned Endocrinology Provider 05/08/21 Olga Garcia, RN Specialty Site Specialist INTERNAL MEDICINE - ENDOCRINOLOGY, DIABETES & METABOLISM 09/29/22 documented as of this encounter
--- OUTSIDE RECORDS SUMMARY | 2024-07-02 08:23 | XMS_ITS | Encounter Summary ---
Author Organization [place] Address [address] [place] [address]. [place] [address] Care Team Providers Care Biological Photographer Name Role Phone Wilber Vidales MD Primary Care Provider + Wilber Vidales MD Unavailable [phone] Stephie Mahoney MD Unavailable [phone] Federica Foster RN Unavailable [phone] Unavailable [phone] Stephie Mahoney MD Unavailable [phone] Olga Garcia RN Unavailable [phone] Junior Chavira MD Unavailable [phone] Encounter Details Date Type Department Care Team (Late st Contact Info) Description 05/14/2023 [facility] Medical Advice [facility] Endocrinology Clinic [place] [address] [facility] [address] 3rd [place] [address] Stephie Mahoney MD [address] [facility] [address] [place] [address] Social History Tobacco Use Types [...] How often do you attend chur or rastafarian services? More than 4 times per year 06/27/2021 Do you belong to any clubs o r organizations such as latter-day groups, unions, fraternal or athletic groups, or [...] Answer Date Recorded PHQ-2 Score 0 03/30/2023 [facility] of Occupat ional Health - Occupational Stress [...] place to sleep or slept in a alf (including now)? No 06/27/2021 Adolescent Education Answer Date Record ed Getting School Help Needed Not on file 05/14 Education Answer Date Recorded What is the highest level of school you have completed or the highest degree you have received? Bachelor's degree (e.g., BA, AB, BS) 03/17/2019 Sex and Gender Information Value Date Recorded Sex Assigned at Male 06/07/2019 7:29 AM CDT 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 NETWORK OPERATIONS CENTER TECHNICIAN Gender Identity Male 03/03/2019 9:24 PM CDT Sexual Orientation Straight 03/03/2019 9: 24 PM CDT COVID-19 Exposure Response Date Recorded In the last 10 days, have yo u been in contact with someone who was confirmed or suspected to have Coronavirus/COVID-19? No / Unsure 05/14/2023 7:33 AM CDT documented as of this encounter Plan of Treatment Upcoming Encounters Date Type Department Care Team (Late st Contact Info) Description 07/11/2024 8:00 AM NETWORK OPERATIONS CENTER TECHNICIAN Office Visit [address] [place] [address] Junior Chavira MD [address] [place] [address] 07/30/2024 7:30 AM NETWORK OPERATIONS CENTER TECHNICIAN Appointment [facility] Specialty Care [address] [place] [phone] Candy Trivedi MD [address] [facility] [address] [place] [address] 08/07/2024 1:30 PM NETWORK OPERATIONS CENTER TECHNICIAN Virtual Visit [facility] Diabetes Education [address] [phone] Stephie Mahoney MD [address] [place] [address] 483005 Federica Foster RN 420 [place] [address] 01/09/2025 8:00 AM CDT Lab [facility] Laboratory [address] [place] [address] 01/16/2025 3:30 PM CDT Virtual Visit [facility]ology [facility] [address] [phone] Stephie Mahoney MD [address] [place] [address] 423065 06/05/2025 12:30 PM CDT Office Visit [facility]inology [facility] [address] [phone] Stephie Mahoney MD [address] [place] [address] 244595 documented as of this encounter Visit Diagnoses Not on filedocumented in this encounter Care Teams Biological Photographer Relationship Specialty [place] [address] [facility] [address] PCP - General Family Practice 11/21/16 [place] [address] [place] [address] Assigned PCP 01/30/21 Stephie aMhoney MD [address] [place] [address] 243935 Endocrinology, Diabetes, and Metabolism 04/22/21 Federica Foster, RN 420 [place], [place] 7[address] Aquarium Tank Attendant Diabetes Education 04/22/21 Tova Welch, RD [address] [place] [address] 369854 Aquarium Tank Attendant Nutrition 04/22/21 Stephie Mahoney MD [address] [place] [address] 884565 Assigned Endocrinology Provider 05/08/21 Olga Garcia, RN Specialty Stitch Bonding Machine Operator INTERNAL MEDICINE - ENDOCRINOLOGY, DIABETES & METABOLISM 09/29/22 Junior Chavira MD [address] [place] [address] Cardiovascular Disease 05/29/24 documented as of this encounter
--- OUTSIDE RECORDS SUMMARY | 2024-07-02 08:23 | XMS_ITS | Encounter Summary ---
Author Organization [place] Address [address] [place] [address]. [place] [address] Care Team Providers Care Partner Marketing Intern Name Role Phone Wilber Vidales MD Primary Care Provider + Wilber Vidales MD Unavailable [phone] Stephie Mahoney MD Unavailable [phone] Federica Foster RN Unavailable [phone] Unavailable [phone] Stephie Mahoney MD Unavailable [phone] Olga Garcia RN Unavailable [phone] Junior Chavira MD Unavailable [phone] Encounter Details Date Type Department Care Team (Late st Contact Info) Description 05/15/2023 [facility] Medical Advice [facility] Endocrinology Clinic [address] 3rd [place] [address] Olga Garcia, RN Social History [...] 06/27/2021 How often do you attend chur ch or lutheran services? More than 4 times per year 06/27/2021 Do you belong to any clubs o r organizations such as pentecostal groups, unions, fraternal or athletic groups, or [...] Answer Date Recorded PHQ-2 Score 0 03/30/2023 [facility] of Occupat ional Health - Occupational [...] place to sleep or slept in a group home (including now)? No 06/27/2021 Adolescent Education Answer [...] AM CDT 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 YIELD ENGINEER Gender Identity Male 03/03/2019 9:24 PM CDT [...] st Contact Info) Description 07/11/2024 8:00 AM YIELD ENGINEER Office Visit [facility] Heart Clinic [place] [address] [facility] [address] [place] [address] Junior Chavira MD [address] [place] [address] 07/30/2024 7:30 AM YIELD ENGINEER Appointment [facility] Specialty Care [address] [facility] [address] [place] [address] Candy Trivedi MD [address] [facility] [address] [place] [address] 08/07/2024 1:30 PM YIELD ENGINEER Virtual Visit [facility] Diabetes Education [address] [phone] Stephie Mahoney MD [address] [place] [address] Federica Foster RN 420 [place], [place] 2970[address] 01/09/2025 8:[address] [facility] Laboratory [address] [place] [phone] 01/16/2025 3:30 PM CDT Virtual Visit [facility] Endocrinology Clinic [address] [phone] Stephie Mahoney MD [address] [place] [address] 803745 06/05/2025 12:30 PM CDT Office Visit [facility] Endocrinology Clinic [address] [phone] Stephie Mahoney MD [address] [place] [address] documented as of this encounter Visit Diagnoses Not on filedocumented in this encounter Care Teams Partner Marketing Intern Relationship Specialty [place] [address] [place] [address] PCP - General Family Practice 11/21/16 [place] [address] [place] [address] Assigned PCP 01/30/21 Stephie Mahoney MD [address] [place] [address] Endocrinology, Diabetes, and Metabolism 04/22/21 Federica Foster, RN [address] [place] [address] [employer] Diabetes Education 04/22/[address] [place] [address] [employer] Nutrition 04/22/21 Stephie Mahoney MD [address] [place] [address] Assigned Endocrinology Provider 05/08/21 Olga Garcia, RN Specialty Automotive Machinist INTERNAL MEDICINE - ENDOCRINOLOGY, DIABETES & METABOLISM 09/29/22 Junior Chavira MD [address] [place], [place] 8[address] Cardiovascular Disease 05/29/24 documented as of this encounter
--- OUTSIDE RECORDS SUMMARY | 2024-07-02 08:23 | XMS_ITS | Encounter Summary ---
Author Organization [place] Address [address] [place] [address]. [place] [address] Care Team Providers Care Secondary Special Education Teacher Name Role Phone Wilber Vidales MD Primary Care Provider + Wilber Vidales MD Unavailable [phone] Stephie Mahoney MD Unavailable [phone] Federica Foster RN Unavailable [phone] Unavailable [phone] Stephie Mahoney MD Unavailable [phone] Olga Garcia RN Unavailable [phone] Matt Baez MD Unavailable [phone] Junior Chavira MD Unavailable [phone] Encounter Details Date Type Department Care Team (Late st Contact Info) Description 04/02/2023 MyC Medical Advice [facility] Endocrinology Clinic [address] [place] [address] Olga Garcia, RN Social History [...] How often do you attend chur or christian services? More than 4 times per year 06/27/2021 Do you belong to any clubs o r organizations such as bahai groups, unions, fraternal or athletic groups, or [...] Answer Date Recorded PHQ-2 Score 0 03/30/2023 [facility] - Occupational Stress Questionnaire Answer Date [...] place to sleep or slept in a half-way (including now)? No 06/27/2021 Education Answer Date Recorded What is the highest level of school you have completed or the highest degree you have received? Bachelor's degree (e.g., BA, AB, BS) 03/17/2019 Sex and Gender Information Value Date Recorded Sex Assigned at Male 06/07/2019 7:29 AM CDT 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 DENTAL OFFICE COORDINATOR Gender Identity Male 03/03/2019 9:24 PM CDT Sexual Orientation Straight 03/03/2019 9: 24 PM CDT documented as of this encounter Plan of Treatment Upcoming Encounters Date Type Department Care Team (Late st Contact Info) Description 07/11/2024 8:00 AM DENTAL OFFICE COORDINATOR Office Visit [facility] Heart [facility] [place] [address] [facility] [address] [place] [phone] Junior Chavira MD [address] [place] [id number] 07/30/2024 7:30 AM DENTAL OFFICE COORDINATOR Appointment [facility] Specialty Care [address] [facility] [address] [place] [phone] Candy Trivedi MD [address] [place] [address] 08/07/2024 1:30 PM DENTAL OFFICE COORDINATOR Virtual Visit [facility] Diabetes Education [address] [phone] Stephie Mahoney MD [address] [place] [address] Federica Foster RN [address] [place] [address] 01/09/2025 8:00 AM CDT Lab [facility] Laboratory [address] [place] [phone] 01/16/2025 3:30 PM CDT Virtual Visit [facility] Endocrinology Clinic [address] [phone] Stephie Mahoney MD [address] [place] [address] 06/05/2025 12:30 PM CDT Office Visit [facility] Endocrinology Clinic [address] [phone] Stephie Mahoney MD [address] [place] [address] documented as of this encounter Visit Diagnoses Not on filedocumented in this encounter Care Teams Secondary Special Education Teacher Relationship Specialty [place] [address] [place] [address] PCP - General Family Practice 11/21/16 [place] [address] [place] [address] Assigned PCP 01/30/21 Stephie Mahoney MD [address] [address] Endocrinology, Diabetes, and Metabolism 04/22/21 Federica Foster, RN 420 [place] [address] Stamping Operator Diabetes Education 04/22/[address] [place] [address] Stamping Operator Nutrition 04/22/21 Stephie Mahoney MD [address] [address] Assigned Endocrinology Provider 05/08/21 Olga Garcia, RN Specialty Center Receptionist INTERNAL MEDICINE - ENDOCRINOLOGY, DIABETES & METABOLISM 09/29/22 Matt Baez MD [address] [place] [address] Assigned Heart and Vascular Provider 12/23/22 05/04/23 Junior Chavira MD [address] [place] 7[address] Cardiovascular Disease 05/29/24 documented as of this encounter
--- OUTSIDE RECORDS SUMMARY | 2024-07-02 08:23 | XMS_ITS | Encounter Summary ---
Author Organization [place] Address [address] [place] [address]. [place] [address] Care Team Providers Care Lock Up Worker Name Role Phone Wilber Vidaels MD Primary Care Provider + Wilber Vidales MD Unavailable [phone] Stephie Mahoney MD Unavailable [phone] Federica Foster RN Unavailable [phone] Unavailable [phone] Stephie Mahoney MD Unavailable [phone] Olga Garcia RN Unavailable [phone] Matt Baez MD Unavailable [phone] Junior Chavira MD Unavailable [phone] Encounter Details Date Type Department Care Team (Late st Contact Info) Description 01/16/2023 [facility] Medical Advice [facility] Gastroenterology Clinic [address] 4th [place] [address] Dinah Velazquez Social History Tobacco [...] How often do you attend chur or buddhist services? More than 4 times per year [...] Answer Date Recorded PHQ-2 Score 0 09/29/2022 [facility] - Occupational Stress Questionnaire Answer Date [...] place to sleep or slept in a correction (including now)? No 06/27/2021 Education Answer Date Recorded What is the highest level of school you have completed or the highest degree you have received? Bachelor's degree (e.g., BA, AB, BS) 03/17/2019 Sex and Gender Information Value Date Recorded Sex Assigned at Male 06/07/2019 7:29 AM CDT 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 CAT SWAMPER Gender Identity Male 03/03/2019 9:24 PM CDT [...] st Contact Info) Description 07/11/2024 8:00 AM CAT SWAMPER Office Visit [facility] Heart [facility] [address] [place] [address] Junior Chavira MD [address] [place] [id number] 07/30/2024 7:30 AM CAT SWAMPER Appointment [facility] Specialty Care [address] [place] [address] Candy Trivedi MD [address] [place] [address] 08/07/2024 1:30 PM CAT SWAMPER Virtual Visit [facility] Diabetes Education [address] [phone] Stephie Mahoney MD [address] [place] [address] 090365 Federica Foster RN [address] [place] [address] 741315 01/09/2025 8:00 AM CDT Lab [facility] [address] [place] [phone] 01/16/2025 3:30 PM CDT Virtual Visit [facility] Endocrinology Clinic [address] [phone] Stephie Mahoney MD [address] [place] [address] 718505 06/05/2025 12:30 PM CDT Office Visit [facility] Endocrinology [address] [phone] Stephie Mahoney MD [address] [place] [address] documented as of this encounter Visit Diagnoses Not on filedocumented in this encounter Care Teams Lock Up Worker Relationship Specialty [place] [address] [facility] [place] [address] PCP - General Family Practice 11/21/16 [place] [address] [address] [place] [address] Assigned PCP 01/30/21 Stephie Mahoney MD [address] [address] Endocrinology, Diabetes, and Metabolism 04/22/21 Federica Foster, RN 420 [place] [address] Building Carpenter Helper Diabetes Education 04/22/[address] [place] [address] Building Carpenter Helper Nutrition 04/22/21 Stephie Mahoney MD [address] [address] Assigned Endocrinology Provider 05/08/21 Olga Garcia, RN Specialty Casting And Locker Room Servicer INTERNAL MEDICINE - ENDOCRINOLOGY, DIABETES & METABOLISM 09/29/22 Matt Baez MD [address] [facility] [address] [place] [address] Assigned Heart and Vascular Provider 12/23/22 05/04/23 Junoir Chavira MD [address] [place] [address] Cardiovascular Disease 05/29/24 documented as of this encounter
--- OUTSIDE RECORDS SUMMARY | 2024-07-02 08:23 | XMS_ITS | Encounter Summary ---
Author Organization [facility] [place] Address [address] [place] [address]. [place] [address] Care Team Providers Care Audio Video Repairer Name Role Phone Wilber Vidales MD Primary Care Provider + Wilber Vidales MD Unavailable [phone] Stephie Mahoney MD Unavailable [phone] Federica Foster RN Unavailable [phone] Unavailable [phone] Stephie Mahoney MD Unavailable [phone] Olga Garcia RN Unavailable [phone] Matt Baez MD Unavailable [phone] Junior Chavira MD Unavailable [phone] Encounter Details Date Type Department Care Team (Late st Contact Info) Description 04/27/2023 [facility] Medical Advice [facility] Endocrinology Clinic [place] [address] [facility] [address] 3rd [place] [address] Stephie Mahoney MD [address] [place] [address] [address] [place] [address] Social History Tobacco Use Types [...] How often do you attend chur or mandaen services? More than 4 times per year 06/27/2021 Do you belong to any clubs o r organizations such as anabaptist groups, unions, fraternal or athletic groups, or [...] Answer Date Recorded PHQ-2 Score 0 03/30/2023 [facility] Answer Date [...] place to sleep or slept in a skilled nursing (including now)? No 06/27/2021 Education Answer Date Recorded What is the highest level of school you have completed or the highest degree you have received? Bachelor's degree (e.g., BA, AB, BS) 03/17/2019 Sex and Gender Information Value Date Recorded Sex Assigned at Male 06/07/2019 7:29 AM CDT 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 CLOTH WASHER Gender Identity Male 03/03/2019 9:24 PM CDT Sexual Orientation Straight 03/03/2019 9: 24 PM CDT documented as of this encounter Plan of Treatment Upcoming Encounters Date Type Department Care Team (Late st Contact Info) Description 07/11/2024 8:00 AM CLOTH WASHER Office Visit [facility] Heart [facility] [place] [address] [facility] [address] [place] [phone] Junior Chavira MD [address] [place] [address] 07/30/2024 7:30 AM CLOTH WASHER Appointment [facility] Specialty Care [address] [facility] [address] [place] [phone] Candy Trivedi MD [address] [place] [address] 08/07/2024 1:30 PM CLOTH WASHER Virtual Visit [facility] Diabetes Education [address] [phone] Stephie Mahoney MD [address] [place] [address] [phone] Federica Foster RN [address] [place] [place] [address] 01/09/2025 8:00 AM CDT Lab [facility] [address] [place] [phone] 01/16/2025 3:30 PM CDT Virtual Visit [facility] Endocrinology Clinic [address] [phone] Stephie Mahoney MD [address] [place] [address] 06/05/2025 12:30 PM CDT Office Visit [facility] Endocrinology [address] [phone] Stephie Mahoney MD [address] [place] [address] 738985 documented as of this encounter Visit Diagnoses Not on filedocumented in this encounter Care Teams Audio Video Repairer Relationship Specialty [place] [address] [place] [address] PCP - General Family Practice 11/21/16 [place] [address] [place] [address] Assigned PCP 01/30/21 Stephie Mahoney MD [address] [address] Endocrinology, Diabetes, and Metabolism 04/22/21 Federica Foster, RN 420 [place], [place] 2636[address] Olive Grader Diabetes Education 04/22/[address] [place] [address] [phone] Olive Grader Nutrition 04/22/21 Stephie Mahoney MD [address] [address] Assigned Endocrinology Provider 05/08/21 Olga Garcia, RN Specialty Family Psychologist INTERNAL MEDICINE - ENDOCRINOLOGY, DIABETES & METABOLISM 09/29/22 Matt Baez MD [address] [facility] [address] [place], [place] [address] Assigned Heart and Vascular Provider 12/23/22 05/04/23 Junior Chavira MD [address] [place], [place] 3[address] Cardiovascular Disease 05/29/24 documented as of this encounter
--- OUTSIDE RECORDS SUMMARY | 2024-07-02 08:23 | XMS_ITS | Encounter Summary ---
Author Organization [place] Address [address] [place] [address]. [place] [address] Care Team Providers Care Head Insulation Board Saw Operator Name Role Phone Wilber Vidales MD Primary Care Provider + Wilber Vidales MD Unavailable [phone] Stephie Mahoney MD Unavailable [phone] Federica Foster RN Unavailable [phone] Unavailable [phone] Stephie Mahoney MD Unavailable [phone] Olga Garcia RN Unavailable [phone] Matt Baez MD Unavailable [phone] Junior Chavira MD Unavailable [phone] Reason for Visit * Reason Onset Date Comments Appointment 10/12/2022 Encounter Details Date Type Department Care Team (Late st Contact Info) Description 10/12/2022 Telephone [facility] Endocrinology Clinic [place] [address] [facility] 3rd [place] [address] Stephie Mahoney MD [address] [place] [address] 101 [place] [address] Appointment Social History Tobacco Use Types Packs/Day Years [...] week 06/27/2021 How often do you attend [facility] or zoroastrian services? More than 4 times per year 06/27/2021 Do you belong to any clubs o r organizations such as evangelical groups, unions, fraternal or athletic groups, or [...] Answer Date Recorded PHQ-2 Score 0 09/29/2022 [facility] [...] place to sleep or slept in a senior care (including now)? No 06/27/2021 Education Answer Date Recorded What is the highest level of school you have completed or the highest degree you have received? Bachelor's degree (e.g., BA, AB, BS) 03/17/2019 Sex and Gender Information Value Date Recorded Sex Assigned at Male 06/07/2019 7:29 AM CDT 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 CHEMICAL CELL CHANGER Gender Identity Male 03/03/2019 9:24 PM CDT Sexual Orientation Straight 03/03/2019 9: 24 PM CDT COVID-19 Exposure Response Date Recorded In the last 10 days, have yo u been in contact with someone who was confirmed or suspected to have Coronavirus/COVID-19? No / Unsure 10/13/2022 11:29 AM CHEMICAL CELL CHANGER documented as of this encounter Miscellaneous Notes * Telephone Encounter - Nicole Stacy V - 10/12/2022 11:29 AM CST Spoke to pt and rescheduled pt's appt on 10/05/2023 @ 2:30pm to 10/05/2023 @ 10am to see Dr. Mahoney. Nicole Stacy on 10/12/2022 at 11:30 AM ICAL CELL CHANGER documented in this encounter Plan of Treatment Upcoming Encounters Date Type Department Care Team (Late st Contact Info) Description 07/11/2024 8:00 AM CHEMICAL CELL CHANGER Office Visit [facility] Heart [facility] [address] [facility] [address] [place] [phone] Junior Chavira MD [address] [place], [place] [address] 07/30/2024 7:30 AM CHEMICAL CELL CHANGER Appointment [facility] Specialty Care [address] [facility] [address] [place] [phone] Candy Trivedi MD [address] [place], [place] [address] 08/07/2024 1:30 PM CHEMICAL CELL CHANGER Virtual Visit [facility] Diabetes Education [address] [phone] Stephie Mahoney MD [address] [place] [address] 603745 Federica Foster, MENDEL [address] [place] [address] 01/09/2025 8:00 AM CDT Lab [facility] [address] [place] [address] 01/16/2025 3:30 PM CDT Virtual Visit [facility] Endocrinology [address] [phone] Stephie Mahoney MD [address] [place] [address] 988585 06/05/2025 12:30 PM CDT Office Visit [facility] Endocrinology [address] 3rd [place] [phone] Stephie Mahoney MD [address] [place] [address] 816825 documented as of this encounter Visit Diagnoses Not on filedocumented in this encounter Care Teams Head Insulation Board Saw Operator Relationship Specialty [place] [address] [place] [address] PCP - General Family Practice 11/21/16 [place] [address] [address] [place] [address] Assigned PCP 01/30/21 Stephie Mahoney MD [address] [place] [address] Endocrinology, Diabetes, and Metabolism 04/22/21 Federica Foster, RN [address] [place] [address] 717335 Aromatherapist Diabetes Education 04/22/[address] [place] [address] 882054 Aromatherapist Nutrition 04/22/21 Stephie Mahoney MD [address] [place] [address] Assigned Endocrinology Provider 05/08/21 Olga Garcia, RN Specialty Orthopedics Nurse INTERNAL MEDICINE - ENDOCRINOLOGY, DIABETES & METABOLISM 09/29/22 Matt Baez MD [address] [facility] [address] [place] [address] Assigned Heart and Vascular Provider 12/23/22 05/04/23 Junior Chavira MD [address] [place] [address] Cardiovascular Disease 05/29/24 documented as of this encounter
--- OUTSIDE RECORDS SUMMARY | 2024-07-02 08:23 | XMS_ITS | Encounter Summary ---
Author Organization [place] Address [address] [place] [address]. [place] [address] Care Team Providers Care Uniform Force Captain Name Role Phone Wilber Vidales MD Primary Care Provider + Wilber Vidales MD Unavailable [phone] Stephie Mahoney MD Unavailable [phone] Federica Foster RN Unavailable [phone] Unavailable [phone] Stephie Mahoney MD Unavailable [phone] Olga Garcia RN Unavailable [phone] Matt Baez MD Unavailable [phone] Junior Chavira MD Unavailable [phone] Reason for Visit * Reason Onset Date Comments Call Back 04/02/2023 Encounter Details Date Type Department Care Team (Late st Contact Info) Description 04/02/2023 Telephone [facility] Endocrinology Clinic [place] [address] [place] [address] Stephie Mahoney MD [address] [place] [address] 101 [place] [address] Call Back Social History Tobacco Use Types Packs/Day Years [...] week 06/27/2021 How often do you attend [facility] or sabianist services? More than 4 times per year 06/27/2021 Do you belong to any clubs o r organizations such as jew groups, unions, fraternal or athletic groups, or [...] Answer Date Recorded PHQ-2 Score 0 03/30/2023 [facility] - Occupational Stress Questionnaire Answer Date [...] AM CDT 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 RADIOLOGICAL DEFENSE OFFICER Gender Identity Male 03/03/2019 9:24 PM CDT Sexual Orientation Straight 03/03/2019 9: 24 PM CDT documented as of this encounter Miscellaneous Notes * Telephone Encounter - Carey Rust - 04/02/2023 1:07 PM CDT [facility] Phone Message May a detailed message be left on voicemail: yes Reason for Call: Other: . Per Patient is wanting to get a call back with an email address he can sent a form to Dr. Mahoney to be able to fill out and sign. Please advise. Action Taken: Message routed to: [facility] Endo Travel Screening: Not Applicable documented in this encounter Plan of Treatment Upcoming Encounters Date Type Department Care Team (Late st Contact Info) Description 07/11/2024 8:00 AM RADIOLOGICAL DEFENSE OFFICER Office Visit [facility] Heart [facility] [address] [place] [phone] Junior Chavira MD [address] [place] [address] 07/30/2024 7:30 AM RADIOLOGICAL DEFENSE OFFICER Appointment [facility] Specialty Care [address] [place] [phone] Candy Trivedi MD [address] [place], [place] [address] 08/07/2024 1:30 PM RADIOLOGICAL DEFENSE OFFICER Virtual Visit [facility] Diabetes Education [address] [phone] Stephie Mahoney MD [address] [place] [address] 183985 Federica Foster, RN 420 [place], [place] [address] 01/09/2025 8:00 AM CDT Lab [facility] [address] [place] [address] 01/16/2025 3:30 PM CDT Virtual Visit [facility]ology [facility] [address] [address] Stephie Mahoney MD [address] [place] [address] 189765 06/05/2025 12:30 PM CDT Office Visit [facility] Endocrinology Clinic [address] [address] Stephie Mahoney MD [address] [address] documented as of this encounter Visit Diagnoses Not on filedocumented in this encounter Care Teams Uniform Force Captain Relationship Specialty [place] [address] [place] [id number] PCP - General Family Practice 11/21/16 [place] [address] [place] [id number] Assigned PCP 01/30/21 Stephie Mahoney MD [address] [place] [address] Endocrinology, Diabetes, and Metabolism 04/22/21 Federica Foster, RN [address] [place] [address] 027605 Professor Of Biology Diabetes Education 04/22/[address] [place] [address] Professor Of Biology Nutrition 04/22/21 Stephie Mahoney MD [address] [place] [address] Assigned Endocrinology Provider 05/08/21 Olga Garcia, RN Specialty Bartender Helper INTERNAL MEDICINE - ENDOCRINOLOGY, DIABETES & METABOLISM 09/29/22 Matt Baez MD [address] [facility] [address] [place] [address] Assigned Heart and Vascular Provider 12/23/22 05/04/23 Junior Chavira MD [address] [place] [address] Cardiovascular Disease 05/29/24 documented as of this encounter
--- OUTSIDE RECORDS SUMMARY | 2024-07-02 08:23 | XMS_ITS | Encounter Summary ---
Author Organization [place] Address [address] [place] [address]. [place] [address] Care Team Providers Care Communications Superintendent Name Role Phone Wilber Vidales MD Primary Care Provider + Wilber Vidales MD Unavailable [phone] Stephie Mahoney MD Unavailable [phone] Federica Foster RN Unavailable [phone] Unavailable [phone] Stephie Mahoney MD Unavailable [phone] Olga Garcia RN Unavailable [phone] Matt Baez MD Unavailable [phone] Junior Chavira MD Unavailable [phone] Encounter Details Date Type Department Care Team (Late st Contact Info) Description 01/25/[address] [facility] Gastroenterology Clinic [address] 4th [place] [address] Sandra Villagomez Social History Tobacco [...] any clubs o r organizations such as muslim groups, unions, fraternal or athletic groups, or [...] Date Recorded PHQ-2 Score 0 09/29/2022 [facility] of Occupat ional Health - Occupational [...] place to sleep or slept in a fci (including now)? No 06/27/2021 Education Answer Date Recorded What is the highest level of school you have completed or the highest degree you have received? Bachelor's degree (e.g., BA, AB, BS) 03/17/2019 Sex and Gender Information Value Date Recorded Sex Assigned at Male 06/07/2019 7:29 AM CDT 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 BURIAL VAULT MAKER Gender Identity Male 03/03/2019 9:24 PM CDT [...] st Contact Info) Description 07/11/2024 8:00 AM BURIAL VAULT MAKER Office Visit [facility] Heart [facility] [address] [facility] [address] [place] [phone] Junior Chavira MD [address] [place] [address] 07/30/2024 7:30 AM BURIAL VAULT MAKER Appointment [facility] Specialty Care [address] [facility] [address] [place] [phone] Candy Trivedi MD [address] [place] [address] 08/07/2024 1:30 PM BURIAL VAULT MAKER Virtual Visit [facility] Diabetes Education [address] [phone] Stephie Mahoney MD [address] [place] [address] 814395 Federica Foster RN [address] [place] [address] 257735 01/09/2025 8:00 AM CDT Lab [facility] [address] [place] [phone] 01/16/2025 3:30 PM CDT Virtual Visit [facility] Endocrinology Clinic [address] [phone] Stephie Mahoney MD [address] [place] [address] 013685 06/05/2025 12:30 PM CDT Office Visit [facility] Endocrinology Clinic [address] [phone] Stephie Mahoney MD [address] [place] [address] documented as of this encounter Visit Diagnoses Not on filedocumented in this encounter Care Teams Communications Superintendent Relationship Specialty [place] [address] [place] [address] PCP - General Family Practice 11/21/16 [place] [address] [place] [address] Assigned PCP 01/30/21 Stephie Mahoney MD [address] [address] Endocrinology, Diabetes, and Metabolism 04/22/21 Federica Foster RN 420 [place] [address] Director Of Advertising Sales Diabetes Education 04/22/[address] [place] [address] Director Of Advertising Sales Nutrition 04/22/21 Stephie Mahoney MD [address] [place] [address] Assigned Endocrinology Provider 05/08/21 Olga Garcia RN Specialty Manager Domestic INTERNAL MEDICINE - ENDOCRINOLOGY, DIABETES & METABOLISM 09/29/22 Matt Baez MD [address] [facility] [address] [place] [address] Assigned Heart and Vascular Provider 12/23/22 05/04/23 Junior Chavira MD [address] [place] 135[address] Cardiovascular Disease 05/29/24 documented as of this encounter
--- OUTSIDE RECORDS SUMMARY | 2024-07-02 08:23 | XMS_ITS | Encounter Summary ---
Author Organization [place] Address [address] [place] [address]. [place] [address] Care Team Providers Care Heat Reader Name Role Phone Wilber Vidales MD Primary Care Provider + Wilber Vidales MD Unavailable [phone] Stephie Mahoney MD Unavailable [phone] Federica Foster RN Unavailable [phone] Unavailable [phone] Stephie Mahoney MD Unavailable [phone] Olga Garcia RN Unavailable [phone] Matt Baez MD Unavailable [phone] Junior Chavira MD Unavailable [phone] Encounter Details Date Type Department Care Team (Late st Contact Info) Description 01/24/2023 [facility] Adv[facility] Gastroenterology Clinic [address] 4th [place] [address] Dinah Velazquez Social History Tobacco [...] any clubs o r organizations such as hinduism groups, unions, fraternal or athletic groups, or [...] Answer Date Recorded PHQ-2 Score 0 09/29/2022 [facility] - Occupational Stress Questionnaire Answer Date [...] place to sleep or slept in a residential (including now)? No 06/27/2021 Education Answer Date Recorded What is the highest level of school you have completed or the highest degree you have received? Bachelor's degree (e.g., BA, AB, BS) 03/17/2019 Sex and Gender Information Value Date Recorded Sex Assigned at Male 06/07/2019 7:29 AM CDT 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 AUTOMATIC LATHE SETTER Gender Identity Male 03/03/2019 9:24 PM CDT [...] st Contact Info) Description 07/11/2024 8:00 AM AUTOMATIC LATHE SETTER Office Visit [facility] Heart [facility] [address] [facility] [address] [place] [address] Junior Chavira MD [address] [place] [address] 07/30/2024 7:30 AM AUTOMATIC LATHE SETTER Appointment [facility] Specialty Care [address] [facility] [address] [place] [address] Candy Trivedi MD [address] [place] [address] 08/07/2024 1:30 PM AUTOMATIC LATHE SETTER Virtual Visit [facility] Diabetes Education [address] [phone] Stephie Mahoney MD [address] [place] [address] 646875 Federica Foster RN [address] [place] [address] 488[address] 01/09/2025 8:[address] [facility] Laboratory [address] [place] [phone] 01/16/2025 3:30 PM CDT Virtual Visit [facility] Endocrinology Clinic [address] [phone] Stephie Mahoney MD [address] [place] [address] 007625 06/05/2025 12:30 PM CDT Office Visit [facility] Endocrinology [address] [phone] Stephie Mahoney MD [address] [place] [address] documented as of this encounter Visit Diagnoses Not on filedocumented in this encounter Care Teams Heat Reader Relationship Specialty [place] [address] [facility] [place] [address] PCP - General Family Practice 11/21/16 [place] [address] [facility] [address] Assigned PCP 01/30/21 Stephie Mahoney MD [address] [address] Endocrinology, Diabetes, and Metabolism 04/22/21 Federica Foster, RN 420 [place] [address] Field Merchandiser Diabetes Education 04/22/[address] [place] [address] Field Merchandiser Nutrition 04/22/21 Stephie Mahoney MD [address] [address] Assigned Endocrinology Provider 05/08/21 Olga Garcia, RN Specialty Weather Observer INTERNAL MEDICINE - ENDOCRINOLOGY, DIABETES & METABOLISM 09/29/22 Matt Baez MD [address] [facility] [address] [place] [address] Assigned Heart and Vascular Provider 12/23/22 05/04/23 Junior Chavira MD [address] [place] 9[address] Cardiovascular Disease 05/29/24 documented as of this encounter
--- OUTSIDE RECORDS SUMMARY | 2024-07-02 08:23 | XMS_ITS | Encounter Summary ---
Author Organization [place] Address [address] [place] [address]. [place] [address] Care Team Providers Care Automated Access Systems Technician Name Role Phone Wilber Vidales MD Primary Care Provider + Wilber Vidales MD Unavailable [phone] Stephie Mahoney MD Unavailable [phone] Federica Foster RN Unavailable [phone] Unavailable Stephie Mahoney MD Unavailable [phone] Olga Garcia RN Unavailable [phone] Matt Baez MD Unavailable [phone] Junior Chavira MD Unavailable [phone] Encounter Details Date Type Department Care Team (Late st Contact Info) Description 04/27/2023 [facility] Medical Advice [facility] Endocrinology Clinic [place] [address] [facility] [address] 3rd [place] [address] Stephie Mahoney MD [address] [place] [address] 101 [place] [address] Social History Tobacco Use Types [...] How often do you attend chur or amish services? More than 4 times per year [...] Answer Date Recorded PHQ-2 Score 0 03/30/2023 [facility] Occupational Stress Questionnaire Answer Date [...] AM CDT 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 OPERATIONS ASSOCIATE Gender Identity Male 03/03/2019 9:24 PM CDT Sexual Orientation Straight 03/03/2019 9: 24 PM CDT documented as of this encounter Plan of Treatment Upcoming Encounters Date Type Department Care Team (Late st Contact Info) Description 07/11/2024 8:00 AM OPERATIONS ASSOCIATE Office Visit [facility] Heart Clinic [place] [address] [facility] [address] [place] [phone] Junior Chavira MD [address] [place] 286625 07/30/2024 7:30 AM OPERATIONS ASSOCIATE Appointment [facility] Specialty Care [address] [facility] [address] [place] [phone] Candy Trivedi MD [address] [place] [address] 08/07/2024 1:30 PM OPERATIONS ASSOCIATE Virtual Visit [facility] Diabetes Education [address] [phone] Stephie Mahoney MD [address] [place] [address] 729665 Federica Foster RN [address] [place] [address] 01/09/2025 8:00 AM CDT Lab [facility] Laboratory [address] [place] [phone] 01/16/2025 3:30 PM CDT Virtual Visit [facility] Endocrinology Clinic [address] [phone] Stephie Mahoney MD [address] [place] [address] 06/05/2025 12:30 PM CDT Office Visit [facility] Endocrinology [address] [phone] Stephie Mahoney MD [address] [place] [address] 729785 documented as of this encounter Visit Diagnoses Not on filedocumented in this encounter Care Teams Automated Access Systems Technician Relationship Specialty [place] [address] [place] [address] PCP - General Family Practice 11/21/16 [place] [address] [place] [address] Assigned PCP 01/30/21 Stephie Mahoney MD [address] 536[address] Endocrinology, Diabetes, and Metabolism 04/22/21 Federica Foster, RN 420 [place], [place] [address] Hardboard Press Operator Diabetes Education 04/22/[address] [place] [address] 456114 Hardboard Press Operator Nutrition 04/22/21 Stephie Mahoney MD [address] [address] Assigned Endocrinology Provider 05/08/21 Olga Garcia, RN Specialty Braille And Talking Books Clerk INTERNAL MEDICINE - ENDOCRINOLOGY, DIABETES & METABOLISM 09/29/22 Matt Baez MD [address] [facility] [address] [place], [place] [address] Assigned Heart and Vascular Provider 12/23/22 05/04/23 Junior Chavira MD [address] [place], [place] 56[address] Cardiovascular Disease 05/29/24 documented as of this encounter
--- OUTSIDE RECORDS SUMMARY | 2024-07-02 08:24 | XMS_ITS | Encounter Summary ---
Author Organization [place] Address [address] [place] [address]. [place] [address] Care Team Providers Care Table Tender Sludge Name Role Phone Wilber Vidales MD Primary Care Provider + Wilber Vidales MD Unavailable [phone] Stephie Mahoney MD Unavailable [phone] Federica Foster RN Unavailable [phone] Unavailable [phone] Stephie Mahoney MD Unavailable [phone] Olga Garcia RN Unavailable [phone] Matt Baez MD Unavailable [phone] Junior Chavira MD Unavailable [phone] Encounter Details Date Type Department Care Team (Late st Contact Info) Description 07/04/2022 MyC Medical Advice [facility] [address] [place] [address] [place] [address] [place] [address] Social History Tobacco Use Types [...] How often do you attend chur or confucianist services? More than 4 times per year 06/27/2021 Do you belong to any clubs o r organizations such as nondenominational groups, unions, fraternal or athletic groups, or [...] PHQ-2 Answer Date Recorded PHQ-2 Score 0 04/14/2022 [facility] Occupational Stress Questionnaire Answer Date [...] AM CDT 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 CANDY MIXER Gender Identity Male 03/03/2019 9:24 PM CDT Sexual Orientation Straight 03/03/2019 9: 24 PM CDT documented as of this encounter Plan of Treatment Upcoming Encounters Date Type Department Care Team (Late st Contact Info) Description 07/11/2024 8:00 AM CANDY MIXER Office Visit [facility] Heart Clinic [place] [address] [facility] [address] [place] [phone] Junior Chavira MD [address] [place] 6[address] 07/30/2024 7:30 AM CANDY MIXER Appointment [facility] Specialty Care [address] [place] [address] [address] [place] [phone] Candy Trivedi MD [address] [facility] [address] [place] [address] 08/07/2024 1:30 PM CANDY MIXER Virtual Visit [facility] Diabetes Education [address] [phone] Stephie Mahoney MD [address] [place] [address] Federica Foster RN 420 [place] [address] 01/09/2025 8:00 AM CDT Lab [facility] Laboratory [address] [place] [phone] 01/16/2025 3:30 PM CDT Virtual Visit [facility] Endocrinology Clinic [address] [phone] Stephie Mahoney MD [address] [place] [address] 243955 06/05/2025 12:30 PM CDT Office Visit [facility] Endocrinology [address] [phone] Stephie Mahoney MD [address] [place] [address] 845205 documented as of this encounter Visit Diagnoses Not on filedocumented in this encounter Care Teams Table Tender Sludge Relationship Specialty [place] [address] [place] [address] PCP - General Family Practice 11/21/16 [place] [address] [place] [address] Assigned PCP 01/30/21 Stephie Mahoney MD [address] [phone] Endocrinology, Diabetes, and Metabolism 04/22/21 Federica Foster, RN 420 [place], [place] [address] Patrol Supervisor Diabetes Education 04/22/[address] [place] [address] 639824 Patrol Supervisor Nutrition 04/22/21 Stephie Mahoney MD [address] 408525 Assigned Endocrinology Provider 05/08/21 Olga Garcia RN Specialty Agricultural Production Engineer INTERNAL MEDICINE - ENDOCRINOLOGY, DIABETES & METABOLISM 09/29/22 Matt Baez MD [address] [place], [place] 67[address] Assigned Heart and Vascular Provider 12/23/22 05/04/23 Junior Chavira MD [address] [place], [place] 7[address] Cardiovascular Disease 05/29/24 documented as of this encounter
--- OUTSIDE RECORDS SUMMARY | 2024-07-02 08:24 | XMS_ITS | Encounter Summary ---
Author Organization [place] Address [address] [place] [address]. [place] [address] Care Team Providers Care Top Lifter Name Role Phone Wilber Vidales MD Primary Care Provider + Matt Baez MD Unavailable [phone] Wilber Vidales MD Unavailable [phone] Stephie Mahoney MD Unavailable Federica Foster RN Unavailable [phone] Unavailable Stephie Mahoney MD Unavailable [phone] Olga Garcia RN Unavailable [phone] Matt Baez MD Unavailable [phone] Junior Chavira MD Unavailable [phone] Reason for Visit * Reason Onset Date Comments Appointment 07/08/[address] Mahoney Encounter Details Date Type Department Care Team (Late st Contact Info) Description 07/08/2021 Telephone [facility] Endocrinology Clinic [place] [address] [facility] [address] 3rd [place] [address] Stephie Mahoney MD [address] [place] [address] 101 [place] [address] Appointment (Labs per Dr Mahoney) Social History Tobacco Use Types Packs/Day Years [...] How often do you attend chur or shinto services? More than 4 times per year [...] PHQ-2 Answer Date Recorded PHQ-2 Score 0 06/27/2021 [facility] - Occupational [...] place to sleep or slept in a retirement (including now)? No 06/27/2021 Education Answer Date Recorded What is the highest level of school you have completed or the highest degree you have received? Bachelor's degree (e.g., BA, AB, BS) 03/17/2019 Sex and Gender Information Value Date Recorded Sex Assigned at Male 06/07/2019 7:29 AM CDT 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 WOOD HANDLER Gender Identity Male 03/03/2019 9:24 PM CDT Sexual Orientation Straight 03/03/2019 9: 24 PM CDT COVID-19 Exposure Response Date Recorded In the last month, have you been in contact with someone who was confirmed or suspected to have Coronavirus / COVID-19? No / Unsure 06/27/2021 6:41 AM WOOD HANDLER documented as of this encounter Miscellaneous Notes * Telephone Encounter - Caitlin Ghotra - 08/29/2021 1:54 PM CST LVM and sent mychart remind pt to complete labs HANDLER * Telephone Encounter - Caitlin Malik - 07/08/2021 1:14 PM CST Spoke with patient, would prefer to be called to schedule labs closer to appointment date. HANDLER * Telephone Encounter - Caitlin Malik - 07/08/2021 1:13 PM CST ----- Message from Stephie Mahoney MD sent at 06/30/2021 2:49 PM WOOD HANDLER ----- Please [facility] pt do labs [facility] please let pt know about details - I have ordered HANDLER documented in this encounter Plan of Treatment Upcoming Encounters Date Type Department Care Team (Late st Contact Info) Description 07/11/2024 8:00 AM WOOD HANDLER Office Visit [facility] Heart [facility] [address] [facility] [address] [place] [phone] Junior Chavira MD [address] [place], [place] [address] 07/30/2024 7:30 AM WOOD HANDLER Appointment [facility] Specialty Care [address] [facility] [address] [place] [phone] Candy Trivedi MD [address] [place], [place] [address]32[address] 08/07/2024 1:30 PM WOOD HANDLER Virtual Visit [facility] Diabetes Education [place] [address] [facility] 3rd [place] [phone] Stephie Mahoney MD 420 [facility] 101 [place], [place] [address] Federica Foster, MENDEL [address] [place], [place] [address]57[address] 01/09/2025 8:00 AM CDT Lab [facility] Laboratory [address] [place] [address] 01/16/2025 3:30 PM CDT Virtual Visit [facility] Endocrinology [address] [phone] Stephie Mahoney MD [address] [place] [address] 949625 06/05/2025 12:30 PM CDT Office Visit [facility] Endocrinology Clinic [address] [phone] Stephie Mahoney MD [address] [place] [address] 064045 documented as of this encounter Visit Diagnoses Not on filedocumented in this encounter Additional Health Concerns Infection Onset Date Last Indicated Resolved Time Rule Out COVID-19 03/10/2022 03/10/2022 03/10/2022 1:37 AM CDT COVID-19 03/10/2022 03/10/2022 03/31/2022 11:3 9 PM CDT documented as of this encounter Care Teams Top Lifter Relationship Specialty [place] [address] [place] [address] PCP - General Family Practice 11/21/16 Matt Baez MD [address] [facility] [address] [place] [address] Assigned Heart and Vascular Provider 06/11/20 06/23/22 [place] [address] [place] [address] Assigned PCP 01/30/21 Stephie Mahoney MD [address] [phone] Endocrinology, Diabetes, and Metabolism 04/22/21 Federica Foster, RN 420 [place], [place] [address] Supersonic Engineer Diabetes Education 04/22/[address] [place] [address] 462954 Supersonic Engineer Nutrition 04/22/21 Stephie Mahoney MD [address] 626515 Assigned Endocrinology Provider 05/08/21 Olga Garcia, RN Specialty Stuffing Machine Operator INTERNAL MEDICINE - ENDOCRINOLOGY, DIABETES & METABOLISM 09/29/22 Matt Baez MD [address] [facility] [address] [place], [place] 6[address] Assigned Heart and Vascular Provider 12/23/22 05/04/23 Junior Chavira MD [address] [place], [place] [address] Cardiovascular Disease 05/29/24 documented as of this encounter
--- OUTSIDE RECORDS SUMMARY | 2024-07-02 08:24 | XMS_ITS | Encounter Summary ---
Author Organization [place] Address [address] [place] [address]. [place] [address] Care Team Providers Care Geriatric Psychiatrist Name Role Phone Wilber Vidales MD Primary Care Provider + Matt Baez MD Unavailable [phone] Wilber Vidales MD Unavailable [phone] Stephie Mahoney MD Unavailable [phone] Federica Foster RN Unavailable Tova Welch RD Unavailable [phone] Stephie Mahoney MD Unavailable [phone] Olga Garcia RN Unavailable [phone] Matt Baez MD Unavailable [phone] Junior Chavira MD Unavailable [phone] Encounter Details Date Type Department Care Team (Late st Contact Info) Description 07/05/2021 MyC Medical Advice [facility] Diabetes Education [place] [address] [facility] 3rd [place] [address] Federica Foster, RN 420 [place] [address] Social History Tobacco Use Types [...] week 06/27/2021 How often do you attend [facility] or buddhism services? More than 4 times [...] Answer Date Recorded PHQ-2 Score 0 06/27/2021 [facility] - Occupational Stress Questionnaire Answer Date [...] place to sleep or slept in a fpc (including now)? No 06/27/2021 Education Answer Date Recorded What is the highest level of school you have completed or the highest degree you have received? Bachelor's degree (e.g., BA, AB, BS) 03/17/2019 Sex and Gender Information Value Date Recorded Sex Assigned at Male 06/07/2019 7:29 AM CDT 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 TIMBER HEWER Gender Identity Male 03/03/2019 9:24 PM CDT Sexual Orientation Straight 03/03/2019 9: 24 PM CDT COVID-19 Exposure Response Date Recorded In the last month, have you been in contact with someone who was confirmed or suspected to have Coronavirus / COVID-19? No / Unsure 06/27/2021 6:41 AM TIMBER HEWER documented as of this encounter Plan of Treatment Upcoming Encounters Date Type Department Care Team (Late st Contact Info) Description 07/11/2024 8:00 AM TIMBER HEWER Office Visit [facility] [address] [place] [address] [address] [place] [address] Junior Chavira MD [address] [place] [address] 07/30/2024 7:30 AM TIMBER HEWER Appointment [facility] Specialty Care [address] [facility] [address] [place] [phone] Candy Trivedi MD [address] [place] [address] 08/07/2024 1:30 PM TIMBER HEWER Virtual Visit [facility] Diabetes Education [address] [phone] Stephie Mahoney MD [address] [place] [address]215 Federica Foster RN 420 [place] [address] 01/09/2025 8:00 AM CDT Lab [facility] Laboratory [address] [place] [phone] 01/16/2025 3:30 PM CDT Virtual Visit [facility] Endocrinology Clinic [address] [phone] Stephie Mahoney MD [address] [place] [address]305 06/05/2025 12:30 PM CDT Office Visit [facility] Endocrinology Clinic [address] [phone] Stephie Mahoney MD [address] [place] [address] 470245 documented as of this encounter Visit Diagnoses Not on filedocumented in this encounter Additional Health Concerns Infection Onset Date Last Indicated Resolved Time Rule Out COVID-19 03/10/2022 03/10/2022 03/10/2022 1:37 AM CDT COVID-19 03/10/2022 03/10/2022 03/31/2022 11:3 9 PM CDT documented as of this encounter Care Teams Geriatric Psychiatrist Relationship Specialty [place] [address] [place] [address] PCP - General Family Practice 11/21/16 Matt Baez MD [address] [facility] [address] [place] [address] Assigned Heart and Vascular Provider 06/11/20 06/23/22 [place] [address] [place] [address] Assigned PCP 01/30/21 Stephie Mahoney MD [address] [place] [address] Endocrinology, Diabetes, and Metabolism 04/22/21 Federica Foster, RN [address] [place] [address] Marketing Team Lead Diabetes Education 04/22/[address] [place] [address] Marketing Team Lead Nutrition 04/22/21 Stephie Mahoney MD [address] [place] [address] Assigned Endocrinology Provider 05/08/21 Olga Garcia RN Specialty Group Account Director INTERNAL MEDICINE - ENDOCRINOLOGY, DIABETES & METABOLISM 09/29/22 Matt Baez MD [address] [place] [address] Assigned Heart and Vascular Provider 12/23/22 05/04/23 Junior Chavira MD [address] [place] 400[address] Cardiovascular Disease 05/29/24 documented as of this encounter
--- OUTSIDE RECORDS SUMMARY | 2024-07-02 08:24 | XMS_ITS | Encounter Summary ---
Author Organization [place] Address [address] [place] [address]. [place] [address] Care Team Providers Care Presser Cotton Ginning Name Role Phone Wilber Vidales MD Primary Care Provider + Matt Baez MD Unavailable [phone] Wilber Vidales MD Unavailable [phone] tSephie Mahoney MD Unavailable Federica Foster RN Unavailable [phone] Unavailable [phone] Stephie Mahoney MD Unavailable [phone] Olga Garcia RN Unavailable [phone] Matt Baez MD Unavailable [phone] Junior Chavira MD Unavailable [phone] Encounter Details Date Type Department Care Team (Late st Contact Info) Description 04/04/2021 [facility] Medical Advice [facility] [address] [place] [address] [place] [address] [place] [address] Social History Tobacco Use Types Packs/Day Years Used Date Smoking Tobacco: Never Smokeless Tobacco: Never Alcohol Use Standard Drinks/Week Comments Yes 0 (1 standard drink = 0.6 oz pur e alcohol) 2/week Social Connection and Isolat ion Panel [NHANES] Answer Date Recorded Frequency of Communication w ith Friends and Family Once a week 03/17/2019 Frequency of Social Gatherin gs with Friends and Family Once a week 03/17/2019 Attends Jain Services More than 4 times per year 03/17/2019 Active Member of Clubs or Organizations Yes 03/17/2019 Attends Club or Organization Meetings More than 4 times per year 03/17/2019 Marital Status 03/17/2019 AUDIT-C Answer Date Recorded Q1: How often do you have a drink containing alc ohol? 2-4 times a month 03/17/2019 Q2: How many drinks containi ng alcohol do you have on a typical day when you are drinking? 1 or 2 03/17/2019 Q3: How often do you have si x or more drinks on one occasion? Never 03/17/2019 Overall Financial Resource Strain (CARDIA) Answe r Date Recorded How hard is it for you to pa y for the very basics like food, housing, medical care, and heating? Not hard at all 03/17/2019 PHQ-2 Answer Date Recorded PHQ-2 Score 0 03/21/2021 [facility] - Occupational Stress Questionnaire Answer Date Recorded Feeling of Stress Not at all 03/17/2019 Exercise Vital Sign Answer Date Recorde d Days of Exercise per Week 5 days 2018 Minutes of Exercise per Session 30 min 03/17/2019 Hunger Vital Sign Answer Date Recorded Within the past 12 months, y ou worried that your food would run out before you got the money to buy more. Never true 03/17/20 19 Within the past 12 months, t he food you bought just didn't last and you didn't have money to get more. Never true 03/17/2019 PRAPARE - Transportation Answer Date Re corded In the past 12 months, has l ack of transportation kept you from medical appointments or from getting medications? No 02/18 In the past 12 months, has l ack of transportation kept you from meetings, work, or from getting things needed for daily living? No 03/17/2019 Education Answer Date Recorded What is the highest level of school you have completed or the highest degree you have received? Bachelor's degree (e.g., BA, AB, BS) 03/17/2019 Sex and Gender Information Value Date Recorded Sex Assigned at Male 06/07/2019 7:29 AM CDT 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 MARKETING COMMUNICATIONS COORDINATOR Gender Identity Male 03/03/2019 9:24 PM CDT Sexual Orientation Straight 03/03/2019 9: 24 PM CDT COVID-19 Exposure Response Date Recorded In the last month, have you been in contact with someone who was confirmed or suspected to have Coronavirus / COVID-19? No / Unsure 04/06/2021 11:35 AM CDT documented as of this encounter Miscellaneous Notes * Telephone Encounter - Krystyna Ghosh RN - 04/04/2021 3:29 PM CDT Patient recommended to visit for muscle spasms. Krystyna Ghosh RN 04/04/2021 at 3:39 PM documented in this encounter Plan of Treatment Upcoming Encounters Date Type Department Care Team (Late st Contact Info) Description 07/11/2024 8:00 AM MARKETING COMMUNICATIONS COORDINATOR Office Visit [facility] [place] [address] [facility] [address] [place] [phone] Junior Chavira MD [address] [place], [place] [address] 07/30/2024 7:30 AM MARKETING COMMUNICATIONS COORDINATOR Appointment M [facility] Specialty Care [address] [address] [place] [phone] Candy Trivedi MD [address] [place] [id number] 08/07/2024 1:30 PM MARKETING COMMUNICATIONS COORDINATOR Virtual Visit [facility] Diabetes Education [address] 3rd [place] [address] Stephie Mahoney MD [address] [place] [address] Federica Foster RN [address] [place] [address] 01/09/2025 8:00 AM CDT Lab [facility] [address] [place] [phone] 01/16/2025 3:30 PM CDT Virtual Visit [facility] Endocrinology [address] [phone] Stephie Mahoney MD [address] [place] [address] 06/05/2025 12:30 PM CDT Office Visit [facility] Endocrinology [address] [phone] Stephie Mahoney MD [address] [place] [address] 274205 documented as of this encounter Visit Diagnoses Not on filedocumented in this encounter Additional Health Concerns Infection Onset Date Last Indicated Resolved Time Rule Out COVID-19 03/10/2022 03/10/2022 03/10/2022 1:37 AM CDT COVID-19 03/10/2022 03/10/2022 03/31/2022 11:3 9 PM CDT documented as of this encounter Care Teams Presser Cotton Ginning Relationship Specialty [place] [address] [place] [address] PCP - General Family Practice 11/21/16 Matt Baez MD [address] [facility] [address] [place] [id number] Assigned Heart and Vascular Provider 06/11/20 06/23/22 [place] [address] [place] [address] Assigned PCP 01/30/21 Stephie Mahoney MD [address] [phone] Endocrinology, Diabetes, and Metabolism 04/22/21 Federica Foster RN 420 [place], [place] [address] Shake Table Operator Diabetes Education 04/22/[address] [place] [address] [phone] Shake Table Operator Nutrition 04/22/21 Stephie Mahoney MD [address] [place] [address] 514125 Assigned Endocrinology Provider 05/08/21 Olga Garcia RN Specialty Crew Leader/Control Room Operator INTERNAL MEDICINE - ENDOCRINOLOGY, DIABETES & METABOLISM 09/29/22 Matt Baez MD [address] [place] [id number] Assigned Heart and Vascular Provider 12/23/22 05/04/23 Junior Chavira MD [address] [place] 835885 Cardiovascular Disease 05/29/24 documented as of this encounter
--- OUTSIDE RECORDS SUMMARY | 2024-07-02 08:24 | XMS_ITS | Encounter Summary ---
Author Organization [place] Address [address] [place] [address]. [place] [address] Care Team Providers Care Cleaner Furniture Name Role Phone Wilber Vidales MD Primary Care Provider + Matt Baez MD Unavailable [phone] Wilber Vidales MD Unavailable [phone] Stephie Mahoney MD Unavailable Federica Foster RN Unavailable [phone] Unavailable [phone] Stephie Mahoney MD Unavailable [phone] Olga Garcia RN Unavailable [phone] Matt Baez MD Unavailable [phone] Junior Chavira MD Unavailable [phone] Encounter Details Date Type Department Care Team (Late st Contact Info) Description 03/10/2022 [facility] Medical Advice [facility] Endocrinology Clinic [place] [address] [facility] 3rd [place] [address] Stephie Mahoney MD [address] [place] [address] [address] [place] [address] Social History Tobacco Use Types [...] week 06/27/2021 How often do you attend [facility] or confucianism services? More than 4 times per year 06/27/2021 Do you belong to any clubs o r organizations such as islam groups, unions, fraternal or athletic groups, or [...] PHQ-2 Answer Date Recorded PHQ-2 Score 0 09/02/2021 [facility] - Occupational Stress Questionnaire Answer Date [...] AM CDT 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 FIBERGLASS BOAT MAKER Gender Identity Male 03/03/2019 9:24 PM CDT Sexual Orientation Straight 03/03/2019 9: 24 PM CDT COVID-19 Exposure Response Date Recorded In the last 10 days, have yo u been in contact with someone who was confirmed or suspected to have Coronavirus/COVID-19? Yes 03/09/2022 11:38 PM CDT documented as of this encounter Plan of Treatment Upcoming Encounters Date Type Department Care Team (Late st Contact Info) Description 07/11/2024 8:00 AM FIBERGLASS BOAT MAKER Office Visit [facility] [id number] [place] [address] [address] [place] [address] Junior Chavira MD [address] [place] [id number] 07/30/2024 7:30 AM FIBERGLASS BOAT MAKER Appointment [facility] Specialty Care [address] [facility] [address] [place] [phone] Candy Trivedi MD [address] [place] [address] 08/07/2024 1:30 PM FIBERGLASS BOAT MAKER Virtual Visit [facility] Diabetes Education [address] [phone] Stephie Mahoney MD [address] [place] [address] [phone] Federica Foster RN 420 [place] [address] 01/09/2025 8:00 AM CDT Lab [facility] [address] [place] [phone] 01/16/2025 3:30 PM CDT Virtual Visit [facility] Endocrinology Clinic [address] [phone] Stephie Mahoney MD [address] [place] [address] 518125 06/05/2025 12:30 PM CDT Office Visit [facility] Endocrinology Clinic [address] [phone] Stephie Mahoney MD [address] [place] [address] 199445 documented as of this encounter Visit Diagnoses Not on filedocumented in this encounter Additional Health Concerns Infection Onset Date Last Indicated Resolved Time Rule Out COVID-19 03/10/2022 03/10/2022 03/10/2022 1:37 AM CDT COVID-19 03/10/2022 03/10/2022 03/31/2022 11:3 9 PM CDT documented as of this encounter Care Teams Cleaner Furniture Relationship Specialty [place] [address] [place] [address] PCP - General Family Practice 11/21/16 Matt Baez MD [address] [facility] [address] [place] [address] Assigned Heart and Vascular Provider 06/11/20 06/23/22 [place] [address] [place] [address] Assigned PCP 01/30/21 Stephie Mahoney MD [address] [place] [address] Endocrinology, Diabetes, and Metabolism 04/22/21 Federica Foster, RN [address] [place] [address] Delivery Architect Diabetes Education 04/22/[address] [place] [address] Delivery Architect Nutrition 04/22/21 Stephie Mahoney MD [address] [place] [address] Assigned Endocrinology Provider 05/08/21 Olga Garcia RN Specialty Court Registry Officer INTERNAL MEDICINE - ENDOCRINOLOGY, DIABETES & METABOLISM 09/29/22 Matt Baez MD [address] [place] [address] Assigned Heart and Vascular Provider 12/23/22 05/04/23 Junior Chavira MD [address] [place] [id number] Cardiovascular Disease 05/29/24 documented as of this encounter
--- OUTSIDE RECORDS SUMMARY | 2024-07-02 08:24 | XMS_ITS | Encounter Summary ---
Author Organization [facility] Address [address] [place] [address]. [place] [address] Care Team Providers Care Optometry Doctor Name Role Phone Wilber Vidales MD Primary Care Provider + Matt Baez MD Unavailable [phone] Wilber Vidales MD Unavailable [phone] Stephie Mahoney MD Unavailable Federica Foster RN Unavailable [address] Unavailable [phone] Stephie Mahoney MD Unavailable [phone] Olga Garcia RN Unavailable [phone] Matt Baez MD Unavailable [phone] Junior Chavira MD Unavailable [phone] Encounter Details Date Type Department Care Team (Late st Contact Info) Description 08/06/2021 [facility] Medical Advice [facility] Diabetes Education [place] [address] [facility] 3rd [place] [address] Federica Foster, RN 420 [place] [address] Social History Tobacco Use Types [...] often do you attend [facility] or protestant services? More than 4 times per year 06/27/2021 Do you belong to any clubs o r organizations such as congregational groups, unions, fraternal or athletic groups, or [...] Answer Date Recorded PHQ-2 Score 0 06/27/2021 [facility] Health - Occupational Stress Questionnaire Answer Date [...] in a alf (including now)? No 06/27/2021 Education Answer Date Recorded What is the highest level of school you have completed or the highest degree you have received? Bachelor's degree (e.g., BA, AB, BS) 03/17/2019 Sex and Gender Information Value Date Recorded Sex Assigned at Male 06/07/2019 7:29 AM CDT 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 MANAGER TREASURY Gender Identity Male 03/03/2019 9:24 PM CDT Sexual Orientation Straight 03/03/2019 9: 24 PM CDT documented as of this encounter Plan of Treatment Upcoming Encounters Date Type Department Care Team (Late st Contact Info) Description 07/11/2024 8:00 AM MANAGER TREASURY Office Visit [facility] Heart [facility] [address] [facility] [address] [place] [phone] Junior Chavira MD [address] [place] [address] 07/30/2024 7:30 AM MANAGER TREASURY Appointment M [facility] Specialty Care [address] [facility] [address] [place] [phone] Candy Trivedi MD [address] [place] [address] 08/07/2024 1:30 PM MANAGER TREASURY Virtual Visit [facility] Diabetes Education [address] [phone] Stephie Mahoney MD [address] [place] [address] 386275 Federica Foster RN [address] [place] [address] [phone] 01/09/2025 8:00 AM CDT Lab [facility] Laboratory [address] [place] [phone] 01/16/2025 3:30 PM CDT Virtual Visit [facility] Endocrinology Clinic [address] [phone] Stephie Mahoney MD [address] [place] [address] 513245 06/05/2025 12:30 PM CDT Office Visit [facility] Endocrinology Clinic [address] [phone] Stephie Mahoney MD [address] [place] [address] 623535 documented as of this encounter Visit Diagnoses Not on filedocumented in this encounter Additional Health Concerns Infection Onset Date Last Indicated Resolved Time Rule Out COVID-19 03/10/2022 03/10/2022 03/10/2022 1:37 AM CDT COVID-19 03/10/2022 03/10/2022 03/31/2022 11:3 9 PM CDT documented as of this encounter Care Teams Optometry Doctor Relationship Specialty [place] [address] [place] [address] PCP - General Family Practice 11/21/16 Matt Baez MD [address] [place] [address] Assigned Heart and Vascular Provider 06/11/20 06/23/22 [place] [address] [place] [address] Assigned PCP 01/30/21 Stephie Mahoney MD [address] [place] [address] Endocrinology, Diabetes, and Metabolism 04/22/21 Federica Foster, RN [address] [place] [address] Funeral Counselor Diabetes Education 04/22/[address] [place] [address] Funeral Counselor Nutrition 04/22/21 Stephie Mahoney MD [address] [place] [address] Assigned Endocrinology Provider 05/08/21 Olga Garcia RN Specialty Para Professional INTERNAL MEDICINE - ENDOCRINOLOGY, DIABETES & METABOLISM 09/29/22 Matt Baez MD [address] [place] [address] Assigned Heart and Vascular Provider 12/23/22 05/04/23 Junior Chavira MD [address] [place] [address] Cardiovascular Disease 05/29/24 documented as of this encounter
--- OUTSIDE RECORDS SUMMARY | 2024-07-02 08:24 | XMS_ITS | Encounter Summary ---
Author Organization [place] Address [address] [place] [address]. [place] [address] Care Team Providers Care Supervisor Gluing Name Role Phone Wilber Vidales MD Primary Care Provider + Matt Baez MD Unavailable [phone] Wilber Vidales MD Unavailable [phone] Stephie Mahoney MD Unavailable Federica Foster RN Unavailable [phone] Unavailable [phone] Stephie Mahoney MD Unavailable [phone] Olga Garcia RN Unavailable [phone] Matt Baez MD Unavailable [phone] Junior Chavira MD Unavailable [phone] Reason for Visit * Reason Onset Date Comments Refill Request 06/23/2021 Encounter Details Date Type Department Care Team (Late st Contact Info) Description 06/23/2021 [facility] [address] [place] [address] [place] [address] [place] [address] Refill Request Social History Tobacco Use Types Packs/Day Years [...] How often do you attend chur or episcopal services? More than 4 times per year 06/27/2021 Do you belong to any clubs o r organizations such as taoist groups, unions, fraternal or athletic groups, or [...] Answer Date Recorded PHQ-2 Score 0 06/27/2021 [facility] Occupat ional Health - Occupational [...] AM CDT 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 WHEAT GROWER Gender Identity Male 03/03/2019 9:24 PM CDT Sexual Orientation Straight 03/03/2019 9: 24 PM CDT documented as of this encounter Plan of Treatment Upcoming Encounters Date Type Department Care Team (Late st Contact Info) Description 07/11/2024 8:00 AM WHEAT GROWER Office Visit [facility] Heart [facility] [address] [facility] [address] [place] [address] Junior Chavira MD [address] [place] [address] 07/30/2024 7:30 AM WHEAT GROWER Appointment [facility] Specialty Care [address] [facility] [address] [place] [phone] Candy Trivedi MD [address] [place] [address] 08/07/2024 1:30 PM WHEAT GROWER Virtual Visit [facility] Diabetes Education [address] [phone] Stephie Mahoney MD [address] [place] [address] Federica Foster RN 420 [place], [place] [address] 01/09/2025 8:00 AM CDT Lab [facility] [address] [place] [address] 01/16/2025 3:30 PM CDT Virtual Visit [facility] Endocrinology Clinic [address] [phone] Stephie Mahoney MD [address] [place] [address] 06/05/2025 12:30 PM CDT Office Visit [facility] Endocrinology Clinic [address] [phone] Stephie Mahoney MD [address] [place] [address] documented as of this encounter Visit Diagnoses Not on filedocumented in this encounter Additional Health Concerns Infection Onset Date Last Indicated Resolved Time Rule Out COVID-19 03/10/2022 03/10/2022 03/10/2022 1:37 AM CDT COVID-19 03/10/2022 03/10/2022 03/31/2022 11:3 9 PM CDT documented as of this encounter Care Teams Supervisor Gluing Relationship Specialty [place] [address] [place] [address] PCP - General Family Practice 11/21/16 Matt Baez MD [address] [address] [place] [address] Assigned Heart and Vascular Provider 06/11/20 06/23/22 [place] [address] [place] [address] Assigned PCP 01/30/21 Stephie Mahoney MD [address] [place] [address] 529395 Endocrinology, Diabetes, and Metabolism 04/22/21 Federica Foster RN [address] [place] [address] [phone] [employer] Diabetes Education 04/22/21 Tova Welch, RD [address] [place] [address] 733104 [employer] Nutrition 04/22/21 Stephie Mahoney MD [address] [address] Assigned Endocrinology Provider 05/08/21 Olga Garcia, RN Specialty Cake Tester INTERNAL MEDICINE - ENDOCRINOLOGY, DIABETES & METABOLISM 09/29/22 Matt Baez MD [address] [place] [address] [place] [address] Assigned Heart and Vascular Provider 12/23/22 05/04/23 Junior Chavira MD [address] [place] [address] Cardiovascular Disease 05/29/24 documented as of this encounter
--- OUTSIDE RECORDS SUMMARY | 2024-07-02 08:24 | XMS_ITS | Encounter Summary ---
Author Organization [place] Address [address] [place], [place] [address]jer[place]. [place] [address] Care Team Providers Care Bacon Skinner Name Role Phone Wilber Vidales MD Primary Care Provider + Matt Baez MD Unavailable [phone] Wilber Vidales MD Unavailable [phone] Stephie Mahoney MD Unavailable [phone] Federica Foster RN Unavailable +[phone] Unavailable [phone] Stephie Mahoney MD Unavailable [phone] Olga Garcia RN Unavailable [phone] Matt Baez MD Unavailable [phone] Junior Chavira MD Unavailable [phone] Reason for Visit * Reason Onset Date Comments Refill Request 12/26/2021 modafinil (PROVI GERALDINE) 200 MG tablet Encounter Details Date Type Department Care Team (Late st Contact Info) Description 12/26/2021 [facility] [address] [place] [address] [place] [address] [place] [address] Refill Request (modafinil (PROVIGIL) 200 MG tablet) Social History Tobacco Use Types Packs/Day Years [...] week 06/27/2021 How often do you attend [facility] or jainism services? More than 4 times per year 06/27/2021 Do you belong to any clubs o r organizations such as religious groups, unions, fraternal or athletic groups, or [...] Answer Date Recorded PHQ-2 Score 0 09/02/2021 [facility] [place] of Occupat ional Health - Occupational Stress [...] AM CDT 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 EMBALMER ASSISTANT Gender Identity Male 03/03/2019 9:24 PM CDT Sexual Orientation Straight 03/03/2019 9: 24 PM CDT COVID-19 Exposure Response Date Recorded In the last 10 days, have yo u been in contact with someone who was confirmed or suspected to have Coronavirus/COVID-19? No / Unsure 12/26/2021 8:35 AM CDT documented as of this encounter Miscellaneous Notes * Telephone Encounter - Carmelina Srivastava - 12/26/2021 5:46 PM CDT documented in this encounter Plan of Treatment Upcoming Encounters Date Type Department Care Team (Late st Contact Info) Description 07/11/2024 8:00 AM EMBALMER ASSISTANT Office Visit [facility] Heart [facility] [address] [facility] [address] [place] [phone] Junior Chavira MD [address] [place], [place] [address] 07/30/2024 7:30 AM EMBALMER ASSISTANT Appointment [facility] Care [address] [facility] [address] [place] [phone] Candy Trivedi MD [address] [place] [address] 08/07/2024 1:30 PM EMBALMER ASSISTANT Virtual Visit [facility] Diabetes Education [address] [phone] Stephie Mahoney MD [address] [place] [address] 695315 Federica Foster RN [address] [place] [address] 531805 01/09/2025 8:00 AM CDT Lab [facility] Laboratory [address] [place] [phone] 01/16/2025 3:30 PM CDT Virtual Visit [facility] Endocrinology [address] [phone] Stephie Mahoney MD [address] [place] [address] 939085 06/05/2025 12:30 PM CDT Office Visit [facility] Endocrinology [address] [phone] Stephie Mahoney MD [address] 988[address] documented as of this encounter Visit Diagnoses Diagnosis 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, 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 documented in this encounter Additional Health Concerns Infection Onset Date Last Indicated Resolved Time Rule Out COVID-19 03/10/2022 03/10/2022 03/10/2022 1:37 AM CDT COVID-19 03/10/2022 03/10/2022 03/31/2022 11:3 9 PM CDT documented as of this encounter Care Teams Bacon Skinner Relationship Specialty [place] [address] [place] [address] PCP - General Family Practice 11/21/16 Matt Baez MD [address] [facility] [address] [place] [address] Assigned Heart and Vascular Provider 06/11/20 06/23/22 [place] [address] [place] [address] Assigned PCP 01/30/21 Stephie Mahoney MD [address] [place] [address] Endocrinology, Diabetes, and Metabolism 04/22/21 Federica Foster, RN [address] [place] [address] 734655 On Call Diabetes Education 04/22/21 Tova Welch, RD [address] [place] [address] On Call Nutrition 04/22/21 Stephie Mahoney MD [address] [place] [address] [address] [place] [address] Assigned Endocrinology Provider 05/08/21 Olga Garcia RN Specialty Electrician Machine Shop INTERNAL MEDICINE - ENDOCRINOLOGY, DIABETES & METABOLISM 09/29/22 Matt Baez MD [address] [place] [address] Assigned Heart and Vascular Provider 12/23/22 05/04/23 Junior Chavira MD [address] [place] [address] Cardiovascular Disease 05/29/24 documented as of this encounter
--- OUTSIDE RECORDS SUMMARY | 2024-07-02 08:24 | XMS_ITS | Encounter Summary ---
Author Organization [place] Address [address] [place] [address]. [place] [address] Care Team Providers Care Alterations Tailor Name Role Phone Wilber Vidales MD Primary Care Provider + Matt Baez MD Unavailable [phone] Wilber Vidales MD Unavailable [phone] Stephie Mahoney MD Unavailable Federica Foster RN Unavailable [phone] Unavailable [phone] Stephie Mahoney MD Unavailable [phone] Olga Garcia RN Unavailable [phone] Matt Baez MD Unavailable [phone] Junior Chavira MD Unavailable [phone] Encounter Details Date Type Department Care Team (Late st Contact Info) Description 05/16/2022 [facility] Endocrinology Clinic [place] [address] [facility] 3rd [place] [address] Stephie Mahoney MD [address] [place] [address] 101 [place] [address] Social History Tobacco Use Types [...] week 06/27/2021 How often do you attend [facility] or mosque services? More than 4 times [...] Answer Date Recorded PHQ-2 Score 0 04/14/2022 [facility] of Occupat ionin Health - Occupational Stress Questionnaire Answer Date [...] place to sleep or slept in a intermediate (including now)? No 06/27/2021 Education Answer Date Recorded What is the highest level of school you have completed or the highest degree you have received? Bachelor's degree (e.g., BA, AB, BS) 03/17/2019 Sex and Gender Information Value Date Recorded Sex Assigned at Male 06/07/2019 7:29 AM CDT 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 PEDIGREE TRACER Gender Identity Male 03/03/2019 9:24 PM CDT Sexual Orientation Straight 03/03/2019 9: 24 PM CDT COVID-19 Exposure Response Date Recorded In the last 10 days, have yo u been in contact with someone who was confirmed or suspected to have Coronavirus/COVID-19? No / Unsure 05/05/2022 11:03 AM CDT documented as of this encounter Plan of Treatment Upcoming Encounters Date Type Department Care Team (Late st Contact Info) Description 07/11/2024 8:00 AM PEDIGREE TRACER Office Visit [facility] [id number] [place] [address] [address] [place] [address] Junior Chavira MD [address] [place] [address] 07/30/2024 7:30 AM PEDIGREE TRACER Appointment [facility]ty [facility] [address] [place] [phone] Candy Trivedi MD [address] [place] [address] 08/07/2024 1:30 PM PEDIGREE TRACER Virtual Visit [facility] Diabetes Education [address] [phone] Stephie Mahoney MD [address] [place] [address] 843445 Federica Foster RN 420 [place], [place] [phone] 01/09/2025 8:00 AM CDT Lab [facility] [address] [place] [phone] 01/16/2025 3:30 PM CDT Virtual Visit [facility] Endocrinology Clinic [address] [phone] Stephie Mahoney MD [address] [place] [address] 722885 06/05/2025 12:30 PM CDT Office Visit [facility] Endocrinology Clinic [address] [phone] Stephie Mahoney MD [address] [place] [address] 430445 documented as of this encounter Visit Diagnoses Not on filedocumented in this encounter Care Teams Alterations Tailor Relationship Specialty [place] [address] [place] [address] PCP - General Family Practice 11/21/16 Matt Baez MD [address] [place] [address] Assigned Heart and Vascular Provider 06/11/20 06/23/22 [place] [address] [place] [address] Assigned PCP 01/30/21 Stephie Mahoney MD [address] [place] [address] Endocrinology, Diabetes, and Metabolism 04/22/21 Federica Foster RN [address] [place] [address] Tongue Stitcher Diabetes Education 04/22/[address] [place] [address] Tongue Stitcher Nutrition 04/22/21 Stephie Mahoney MD [address] [place] [address] Assigned Endocrinology Provider 05/08/21 Olga Garcia RN Specialty Complaint Operator INTERNAL MEDICINE - ENDOCRINOLOGY, DIABETES & METABOLISM 09/29/22 Matt Baez MD [address] [place] [address] Assigned Heart and Vascular Provider 12/23/22 05/04/23 Junior Chavira MD [address] [place] [address] Cardiovascular Disease 05/29/24 documented as of this encounter
--- OUTSIDE RECORDS SUMMARY | 2024-07-02 08:24 | XMS_ITS | Encounter Summary ---
Author Organization [place] Address [address] [place] [address]. [place] [address] Care Team Providers Care Medical Technologist Generalist Name Role Phone Wilber Vidales MD Primary Care Provider + Matt Baez MD Unavailable [phone] Wilber Vidales MD Unavailable [phone] Stephie Mahoney MD Unavailable [phone] Federica Foster RN Unavailable [phone] Unavailable [phone] Stephie Mahoney MD Unavailable [phone] Olga Garcia RN Unavailable [phone] Matt Baez MD Unavailable [phone] Junior Chavira MD Unavailable [phone] Encounter Details Date Type Department Care Team (Late st Contact Info) Description 04/17/2022 [facility] Medical Advice [facility] Diabetes Education [address] [address] Anel Baez, RN Social History Tobacco Use Types Packs/Day [...] How often do you attend chur or advent services? More than 4 times per year [...] Answer Date Recorded PHQ-2 Score 0 04/14/2022 [facility] Questionnaire Answer Date [...] place to sleep or slept in a mcfp (including now)? No 06/27/2021 Education Answer Date Recorded What is the highest level of school you have completed or the highest degree you have received? Bachelor's degree (e.g., BA, AB, BS) 03/17/2019 Sex and Gender Information Value Date Recorded Sex Assigned at Male 06/07/2019 7:29 AM CDT 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 GRAVITY PROSPECTING OBSERVER HELPER Gender Identity Male 03/03/2019 9:24 PM CDT Sexual Orientation Straight 03/03/2019 9: 24 PM CDT documented as of this encounter Plan of Treatment Upcoming Encounters Date Type Department Care Team (Late st Contact Info) Description 07/11/2024 8:00 AM GRAVITY PROSPECTING OBSERVER HELPER Office Visit [facility] Heart [facility] [place] [address] [facility] [address] [place] [phone] Junior Chavira MD [address] [place] [address] 07/30/2024 7:30 AM GRAVITY PROSPECTING OBSERVER HELPER Appointment [facility] Specialty Care [address] [facility] [address] [place] [phone] Candy Trivedi MD [address] [place] [address] 08/07/2024 1:30 PM GRAVITY PROSPECTING OBSERVER HELPER Virtual Visit [facility] Diabetes Education [address] [phone] Stephie Mahoney MD [address] [place] [address] 688645 Federica Foster RN [address] [place] [address] 01/09/2025 8:00 AM CDT Lab [facility] Laboratory [address] [place] [phone] 01/16/2025 3:30 PM CDT Virtual Visit [facility] Endocrinology Clinic [address] [phone] Stephie Mahoney MD [address] [place] [address] 06/05/2025 12:30 PM CDT Office Visit [facility] Endocrinology Clinic [address] [phone] Stephei Mahoney MD [address] [place] [address] documented as of this encounter Visit Diagnoses Not on filedocumented in this encounter Care Teams Medical Technologist Generalist Relationship Specialty [place] [address] [place] [address] PCP - General Family Practice 11/21/16 Matt Baez MD [address] [facility] [address] [place] [address] Assigned Heart and Vascular Provider 06/11/20 06/23/22 [place] [address] [place] [address] Assigned PCP 01/30/21 Stephie Mahoney MD [address] 914405 Endocrinology, Diabetes, and Metabolism 04/22/21 Federica Foster, MENDEL 420 [place], [place] 810445 [employer] Diabetes Education 04/22/[address] [facility] [address] 909544 [employer] Nutrition 04/22/21 Stephie Mahoney MD [address] 614875 Assigned Endocrinology Provider 05/08/21 Olga Garcia, RN Specialty Fender Mechanic Apprentice INTERNAL MEDICINE - ENDOCRINOLOGY, DIABETES & METABOLISM 09/29/22 Matt Baez MD [address] [place] 689805 Assigned Heart and Vascular Provider 12/23/22 05/04/23 Junior Chavira MD [address] [place] 436[address] Cardiovascular Disease 05/29/24 documented as of this encounter
--- OUTSIDE RECORDS SUMMARY | 2024-07-02 08:24 | XMS_ITS | Encounter Summary ---
Author Organization [place] Address [address] [place] [address]. [place] [address] Care Team Providers Care Can Line Examiner Name Role Phone Wilber Vidales MD Primary Care Provider + Matt Baez MD Unavailable [phone] Wilber Vidales MD Unavailable [phone] Stephie Mahoney MD Unavailable Federica Foster RN Unavailable [phone] Unavailable [phone] Stephie Mahoney MD Unavailable [phone] Olga Garcia RN Unavailable [phone] Matt Baez MD Unavailable [phone] Junior Chavira MD Unavailable [phone] Encounter Details Date Type Department Care Team (Late st Contact Info) Description 07/27/2021 My[facility] Medical Advice [facility] Diabetes Education [place] [address] [facility] 3rd [place] [address] Federica Foster, RN 420 [place] [address] Social History Tobacco Use Types [...] week 06/27/2021 How often do you attend [facility] or sikh services? More than 4 times per year [...] Answer Date Recorded PHQ-2 Score 0 06/27/2021 [facility] of Occupat ionme Health - Occupational Stress Questionnaire Answer Date [...] place to sleep or slept in a halfway (including now)? No 06/27/2021 Education Answer Date Recorded What is the highest level of school you have completed or the highest degree you have received? Bachelor's degree (e.g., BA, AB, BS) 03/17/2019 Sex and Gender Information Value Date Recorded Sex Assigned at Male 06/07/2019 7:29 AM CDT 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 CHIEF TECHNOLOGIST Gender Identity Male 03/03/2019 9:24 PM CDT Sexual Orientation Straight 03/03/2019 9: 24 PM CDT COVID-19 Exposure Response Date Recorded In the last month, have you been in contact with someone who was confirmed or suspected to have Coronavirus / COVID-19? No / Unsure 06/27/2021 6:41 AM CHIEF TECHNOLOGIST documented as of this encounter Plan of Treatment Upcoming Encounters Date Type Department Care Team (Late st Contact Info) Description 07/11/2024 8:00 AM CHIEF TECHNOLOGIST Office Visit [facility] [address] [place] [address] [address] [place] [address] Junior Chavira MD [address] [place] [address] 07/30/2024 7:30 AM CHIEF TECHNOLOGIST Appointment [facility] Specialty Care [address] [facility] [address] [place] [phone] Candy Trivedi MD [address] [place] [address] 08/07/2024 1:30 PM CHIEF TECHNOLOGIST Virtual Visit [facility] Diabetes Education [address] [phone] Stephie Mahoney MD [address] [place] [address] 514335 Federica Foster RN 420 [place] [address] 01/09/2025 8:00 AM CDT Lab [facility] Laboratory [address] [place] [phone] 01/16/2025 3:30 PM CDT Virtual Visit [facility] Endocrinology Clinic [address] [phone] Stephie Mahoney MD [address] [place] [address] 820145 06/05/2025 12:30 PM CDT Office Visit [facility] Endocrinology Clinic [address] [phone] Stephie Mahoney MD [address] [place] [address] 699385 documented as of this encounter Visit Diagnoses Not on filedocumented in this encounter Additional Health Concerns Infection Onset Date Last Indicated Resolved Time Rule Out COVID-19 03/10/2022 03/10/2022 03/10/2022 1:37 AM CDT COVID-19 03/10/2022 03/10/2022 03/31/2022 11:3 9 PM CDT documented as of this encounter Care Teams Can Line Examiner Relationship Specialty [place] [address] [place] [address] PCP - General Family Practice 11/21/16 Matt Baez MD [address] [facility] [address] [place] [address] Assigned Heart and Vascular Provider 06/11/20 06/23/22 [place] [address] [place] [address] Assigned PCP 01/30/21 Stephie Mahoney MD [address] [place] [address] Endocrinology, Diabetes, and Metabolism 04/22/21 Federica Foster, RN [address] [place] [address] Instructional Design Consultant Diabetes Education 04/22/[address] [place] [address] Instructional Design Consultant Nutrition 04/22/21 Stephie Mahoney MD [address] [place] [address] Assigned Endocrinology Provider 05/08/21 Olga Garcia RN Specialty Cut Order Hand INTERNAL MEDICINE - ENDOCRINOLOGY, DIABETES & METABOLISM 09/29/22 Matt Baez MD [address] [place] [address] Assigned Heart and Vascular Provider 12/23/22 05/04/23 Junior Chavira MD [address] [place] [id number] Cardiovascular Disease 05/29/24 documented as of this encounter
--- OUTSIDE RECORDS SUMMARY | 2024-07-02 08:24 | XMS_ITS | Encounter Summary ---
Author Organization [place] Address [address] [place] [address]. [place] [address] Care Team Providers Care Print Producer Name Role Phone Wilber Vidales MD Primary Care Provider + Matt Baez MD Unavailable [phone] Wilber Vidales MD Unavailable [phone] Stephie Mahoney MD Unavailable [phone] Federica Foster RN Unavailable [phone] Unavailable Stephie Mahoney MD Unavailable [phone] Olga Garcia RN Unavailable [phone] Matt Baez MD Unavailable [phone] Junior Chavira MD Unavailable [phone] Encounter Details Date Type Department Care Team (Late st Contact Info) Description 09/06/2021 [facility] Medical Advice [facility] Endocrinology Clinic [address] [address] Rebecca Harvey, RN Social History Tobacco [...] any clubs o r organizations such as mandaen groups, unions, fraternal or athletic groups, or [...] Answer Date Recorded PHQ-2 Score 0 09/02/2021 [facility]ational [facility] Questionnaire Answer Date [...] to sleep or slept in a senior living (including now)? No 06/27/2021 Education Answer Date Recorded What is the highest level of school you have completed or the highest degree you have received? Bachelor's degree (e.g., BA, AB, BS) 03/17/2019 Sex and Gender Information Value Date Recorded Sex Assigned at Male 06/07/2019 7:29 AM CDT 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 EMAIL MARKETING PROCESSOR Gender Identity Male 03/03/2019 9:24 PM CDT Sexual Orientation Straight 03/03/2019 9: 24 PM CDT COVID-19 Exposure Response Date Recorded In the last month, have you been in contact with someone who was confirmed or suspected to have Coronavirus / COVID-19? No / Unsure 09/01/2021 3:25 PM EMAIL MARKETING PROCESSOR documented as of this encounter Plan of Treatment Upcoming Encounters Date Type Department Care Team (Late st Contact Info) Description 07/11/2024 8:00 AM EMAIL MARKETING PROCESSOR Office Visit [facility] Heart [facility] [address] [facility] [address] [place] [address] Junior Chavira MD [address] [place] [address] 07/30/2024 7:30 AM EMAIL MARKETING PROCESSOR Appointment [facility] [address] [facility] [address] [place] [phone] Candy Trivedi MD [address] [place] [address] 08/07/2024 1:30 PM EMAIL MARKETING PROCESSOR Virtual Visit [facility] Diabetes Education [address] [phone] Stephie Mahoney MD [address] [place] [address] 880085 Federica Foster RN 420 [place], [place] 416375 01/09/2025 8:00 AM CDT Lab [facility] Laboratory [address] [place] [address] 01/16/2025 3:30 PM CDT Virtual Visit [facility]ology [facility] [address] [phone] Stephie Mahoney MD [address] [place] [address] 06/05/2025 12:30 PM CDT Office Visit [facility] [address] [phone] Stephie Mahoney MD [address] [place] [address] 425125 documented as of this encounter Visit Diagnoses Not on filedocumented in this encounter Additional Health Concerns Infection Onset Date Last Indicated Resolved Time Rule Out COVID-19 03/10/2022 03/10/2022 03/10/2022 1:37 AM CDT COVID-19 03/10/2022 03/10/2022 03/31/2022 11:3 9 PM CDT documented as of this encounter Care Teams Print Producer Relationship Specialty [place] [address] [place] [address] PCP - General Family Practice 11/21/16 Matt Baez MD [address] [place] [id number] Assigned Heart and Vascular Provider 06/11/20 06/23/22 [place] [address] [place] [place] [address] Assigned PCP 01/30/21 Stephie Mahoney MD [address] [place] [address] 774545 Endocrinology, Diabetes, and Metabolism 04/22/21 Federica Foster RN [address] [place] [address] 876735 Textile Science Technician Diabetes Education 04/22/[address] [place] [address] 264964 Textile Science Technician Nutrition 04/22/21 Stephie Mahoney MD [address] [place] [address] 545405 Assigned Endocrinology Provider 05/08/21 Olga Garcia, RN Specialty Suspension Cord Tier INTERNAL MEDICINE - ENDOCRINOLOGY, DIABETES & METABOLISM 09/29/22 Matt Baez MD [address] [place] [address] Assigned Heart and Vascular Provider 12/23/22 05/04/23 Junior Chavira MD [address] [place] [id number] Cardiovascular Disease 05/29/24 documented as of this encounter
--- OUTSIDE RECORDS SUMMARY | 2024-07-02 08:24 | XMS_ITS | Encounter Summary ---
Author Organization [place] Address [address] [place] [address]. [place] [address] Care Team Providers Care Gear Machine Operator General Name Role Phone Wilber Vidales MD Primary Care Provider + Matt Baez MD Unavailable +[phone] Wilber Vidales MD Unavailable +[phone] Stephie Mahoney MD Unavailable [phone] Federica Foster RN Unavailable +[phone] Unavailable [phone] Stephie Mahoney MD Unavailable [phone] Olga Garcia RN Unavailable [phone] Matt Baez MD Unavailable [phone] Junior Chavira MD Unavailable [phone] Encounter Details Date Type Department Care Team (Late st Contact Info) Description 05/11/2021 MyC Medical Advice [facility] Diabetes Education [place] [id number] [facility] 3rd [place] [address] Federica Foster, RN [address] [place] [address] Social History Tobacco Use Types [...] and Family Once a week 03/17/2019 Attends Anabaptism Services More than 4 times per year [...] Answer Date Recorded PHQ-2 Score 0 03/21/2021 [facility] of Occupat ional Health [...] AM CDT 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 MICROWAVE REMOTE SENSING SCIENTIST Gender Identity Male 03/03/2019 9:24 PM CDT Sexual Orientation Straight 03/03/2019 9: 24 PM CDT COVID-19 Exposure Response Date Recorded In the last month, have you been in contact with someone who was confirmed or suspected to have Coronavirus / COVID-19? No / Unsure 04/20/2021 8:38 AM CDT documented as of this encounter Plan of Treatment Upcoming Encounters Date Type Department Care Team (Late st Contact Info) Description 07/11/2024 8:00 AM MICROWAVE REMOTE SENSING SCIENTIST Office Visit [facility] Heart [facility] [address] [employer] [address] [employer] [address] [place] [phone] Junior Chavira MD [address] [place], [place] [address] 07/30/2024 7:30 AM MICROWAVE REMOTE SENSING SCIENTIST Appointment [facility] Specialty Care [address] [place] [phone] Candy Trivedi MD [address] [place] [address] 08/07/2024 1:30 PM MICROWAVE REMOTE SENSING SCIENTIST Virtual Visit [facility] Diabetes Education [place] 909 [facility] 3rd [place] [phone] Stephie Mahoney MD 420 [facility] 101 [place], [place] [address] Federica Foster RN [address] [place] [address] 01/09/2025 8:00 AM CDT Lab [address] [place] [address] 01/16/2025 3:30 PM CDT Virtual Visit [facility] Endocrinology Clinic [address] [phone] Stephie Mahoney MD [address] [place] [address] 06/05/2025 12:30 PM CDT Office Visit [facility] Endocrinology [address] [phone] Stephie Mahoney MD [address] [place] [address] 856305 documented as of this encounter Visit Diagnoses Not on filedocumented in this encounter Additional Health Concerns Infection Onset Date Last Indicated Resolved Time Rule Out COVID-19 03/10/2022 03/10/2022 03/10/2022 1:37 AM CDT COVID-19 03/10/2022 03/10/2022 03/31/2022 11:3 9 PM CDT documented as of this encounter Care Teams Gear Machine Operator General Relationship Specialty [place] [address] [facility] [place] [address] PCP - General Family Practice 11/21/16 Matt Baez MD [address] [facility] [address] [place] [address] Assigned Heart and Vascular Provider 06/11/20 06/23/22 [place] [address] [facility] [place] [address] Assigned PCP 01/30/21 Stephie Mahoney MD [address] [place] [address] Endocrinology, Diabetes, and Metabolism 04/22/21 Federica Foster, RN [address] [place] [address] Psychiatric Security Nurse Diabetes Education 04/22/[address] [place] [address] Psychiatric Security Nurse Nutrition 04/22/21 Stephie Mahoney MD [address] [place] [address] Assigned Endocrinology Provider 05/08/21 Olga Garcia RN Specialty Sharepoint Developer INTERNAL MEDICINE - ENDOCRINOLOGY, DIABETES & METABOLISM 09/29/22 Matt Baez MD [address] [place] [address] Assigned Heart and Vascular Provider 12/23/22 05/04/23 Junior Chavira MD [address] [place] [address] Cardiovascular Disease 05/29/24 documented as of this encounter
--- OUTSIDE RECORDS SUMMARY | 2024-07-02 08:24 | XMS_ITS | Encounter Summary ---
Author Organization [place] Address [address] [place] [address]. [place] [address] Care Team Providers Care Chief Librarian Branch Or Department Name Role Phone Wilber Vidales MD Primary Care Provider + Matt Baez MD Unavailable [phone] Wilber Vidales MD Unavailable [phone] Stephie Mahoney MD Unavailable Federica Foster RN Unavailable [phone] Unavailable [phone] Stephie Mahoney MD Unavailable [phone] Olga Garcia RN Unavailable [phone] Matt Baez MD Unavailable [phone] Junior Chavira MD Unavailable [phone] Encounter Details Date Type Department Care Team (Late st Contact Info) Description 05/02/2021 [facility] Medical Advice [facility] Endocrinology Clinic [place] 909 [facility] 3rd [place] [address] Stephie Mahoney MD [address] [place] [address] 101 [place] [address] Social History Tobacco Use Types [...] and Family Once a week 03/17/2019 Attends Islam Services More than 4 times per year [...] Answer Date Recorded PHQ-2 Score 0 03/21/2021 [facility] of Occupat ional Health - Occupational [...] AM CDT 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 CONVENTION PLANNER Gender Identity Male 03/03/2019 9:24 PM CDT [...] st Contact Info) Description 07/11/2024 8:00 AM CONVENTION PLANNER Office Visit [facility] Heart [facility] [address] [facility] [address] [place] [phone] Junior Chavira MD [address] [place], [place] [address] 07/30/2024 7:30 AM CONVENTION PLANNER Appointment [facility] Specialty Care [address] [facility] [address] [place] [phone] Candy Trivedi MD [address] [place] [address] 08/07/2024 1:30 PM CONVENTION PLANNER Virtual Visit [facility] Diabetes Education [place] 909 [facility] 3rd [place] [phone] Stephie Mahoney MD 420 [facility] 101 [place], [place] [address] Federica Foster RN 420 [place] [address] 01/09/2025 8:00 AM CDT Lab [address] [place] [address] 01/16/2025 3:30 PM CDT Virtual Visit [facility] Endocrinology Clinic [address] [phone] Stephie Mahoney MD [address] [place] [address] 220525 06/05/2025 12:30 PM CDT Office Visit [facility] Endocrinology [address] [phone] Stephie Mahoney MD [address] [place] [address] 184355 documented as of this encounter Visit Diagnoses Not on filedocumented in this encounter Additional Health Concerns Infection Onset Date Last Indicated Resolved Time Rule Out COVID-19 03/10/2022 03/10/2022 03/10/2022 1:37 AM CDT COVID-19 03/10/2022 03/10/2022 03/31/2022 11:3 9 PM CDT documented as of this encounter Care Teams Chief Librarian Branch Or Department Relationship Specialty [place] [address] [facility] [place] [address] PCP - General Family Practice 11/21/16 Matt Baez MD [address] [facility] [address] [place] [address] Assigned Heart and Vascular Provider 06/11/20 06/23/22 [place] [address] [facility] [address] Assigned PCP 01/30/21 Stephie Mahoney MD [address] [place] [address] Endocrinology, Diabetes, and Metabolism 04/22/21 Federica Foster, RN [address] [place] [address] Marketing Database Coordinator Diabetes Education 04/22/[address] [place] [address] Marketing Database Coordinator Nutrition 04/22/21 Stephie Mahoney MD [address] [place] [address] Assigned Endocrinology Provider 05/08/21 Olga Garcia RN Specialty Clinical Evaluator INTERNAL MEDICINE - ENDOCRINOLOGY, DIABETES & METABOLISM 09/29/22 Matt Baez MD [address] [place] [address] Assigned Heart and Vascular Provider 12/23/22 05/04/23 Junior Chavira MD [address] [place] [id number] Cardiovascular Disease 05/29/24 documented as of this encounter
--- OUTSIDE RECORDS SUMMARY | 2024-07-02 08:24 | XMS_ITS | Encounter Summary ---
Author Organization [place] Address [address] [place] [address]. [place] [address] Care Team Providers Care District Plant Engineer Name Role Phone Wilber Vidales MD Primary Care Provider + Matt Baez MD Unavailable [phone] Wilber Vidales MD Unavailable [phone] Stephie Mahoney MD Unavailable Federica Foster RN Unavailable [phone] Unavailable [phone] Stephie Mahoney MD Unavailable [phone] Olga Garcia RN Unavailable [phone] Matt Baez MD Unavailable [phone] Junior Chavira MD Unavailable [phone] Encounter Details Date Type Department Care Team (Late st Contact Info) Description 12/14/2021 MyC Medical Advice [facility] Diabetes Education [place] [address] [facility] 3rd [place] [address] Federica Foster, RN 420 [place] [address] Social History Tobacco Use Types [...] week 06/27/2021 How often do you attend [facility] or christian services? More than 4 times per year 06/27/2021 Do you belong to any clubs o r organizations such as worship groups, unions, fraternal or athletic groups, or [...] 0 09/02/2021 [facility] of Occupat ionia Health - Occupational Stress Questionnaire Answer Date [...] AM CDT 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 HUMAN FACTORS ERGONOMIST Gender Identity Male 03/03/2019 9:24 PM CDT Sexual Orientation Straight 03/03/2019 9: 24 PM CDT documented as of this encounter Miscellaneous Notes * Telephone Encounter - Federica Foster RN - 12/15/2021 12:00 PM CDT documented in this encounter Plan of Treatment Upcoming Encounters Date Type Department Care Team (Late st Contact Info) Description 07/11/2024 8:00 AM HUMAN FACTORS ERGONOMIST Office Visit [facility] [address] [place] [address] [address] [place] [phone] Junior Chavira MD [address] [place] [address] 07/30/2024 7:30 AM HUMAN FACTORS ERGONOMIST Appointment [facility] Specialty Care [address] [facility] [address] [place] [phone] Candy Trivedi MD [address] [place] [address] 08/07/2024 1:30 PM HUMAN FACTORS ERGONOMIST Virtual Visit [facility] Diabetes Education [address] [phone] Stephie Mahoney MD [address] [place] [address] 624985 Federica Foster RN 420 [place], [place] [address] 01/09/2025 8:00 AM CDT Lab [facility] [address] [place] [address] 01/16/2025 3:30 PM CDT Virtual Visit [facility] Endocrinology Clinic [address] [phone] Stephie Mahoney MD [address] [place] [address] 249205 06/05/2025 12:30 PM CDT Office Visit [facility] Endocrinology [facility] [address] [phone] Stephie Mahoney MD [address] [place] [address] 012915 documented as of this encounter Visit Diagnoses Not on filedocumented in this encounter Additional Health Concerns Infection Onset Date Last Indicated Resolved Time Rule Out COVID-19 03/10/202203/1003/10/2022 03/10/2022 1:37 AM CDT COVID-19 03/10/2022 03/10/2022 03/31/2022 11:3 9 PM CDT documented as of this encounter Care Teams District Plant Engineer Relationship Specialty [place] [address] [place] [address] PCP - General Family Practice 11/21/16 Matt Baez MD [address] [place] [id number] Assigned Heart and Vascular Provider 06/11/20 06/23/22 [place] [address] [place] [address] Assigned PCP 01/30/21 Stephie Mahoney MD [address] [place] [address] 150935 Endocrinology, Diabetes, and Metabolism 04/22/21 Federica Foster RN [address] [place] [address] [phone] Healthcare Applications Analyst Diabetes Education 04/22/[address] [place] [address] Healthcare Applications Analyst Nutrition 04/22/21 Stephie Mahoney MD [address] [place] [address] Assigned Endocrinology Provider 05/08/21 Olga Garcia, RN Specialty Sawmill Or Timber Yard Worker INTERNAL MEDICINE - ENDOCRINOLOGY, DIABETES & METABOLISM 09/29/22 Matt Baez MD [address] [place] 925885 Assigned Heart and Vascular Provider 12/23/22 05/04/23 Junior Chavira MD [address] [place] 916655 Cardiovascular Disease 05/29/24 documented as of this encounter
--- OUTSIDE RECORDS SUMMARY | 2024-07-02 08:24 | XMS_ITS | Encounter Summary ---
Author Organization [place] Address [address] [place] [address]. [place] [address] Care Team Providers Care Auto Mechanic Apprentice Name Role Phone Wilber Vidales MD Primary Care Provider + Matt Baez MD Unavailable [phone] Wilber Vidales MD Unavailable [phone] Stephie Mahoney MD Unavailable [phone] Federica Foster RN Unavailable [phone] Unavailable [phone] Stephie Mahoney MD Unavailable [phone] Olga Garcia RN Unavailable [phone] Matt Baez MD Unavailable [phone] Junior Chavira MD Unavailable [phone] Encounter Details Date Type Department Care Team (Late st Contact Info) Description 01/27/2022 MyC Medical Advice [facility] Diabetes Education [place] [address] [facility] 3rd [place] [address] Federica Foster, RN 420 [place] [address] Social History Tobacco Use Types [...] week 06/27/2021 How often do you attend [facility] or yazidism services? More than 4 times per year [...] Answer Date Recorded PHQ-2 Score 0 09/02/2021 [facility] of Occupat ionaz Health - Occupational Stress Questionnaire Answer Date [...] place to sleep or slept in a long-term (including now)? No 06/27/2021 Education Answer Date Recorded What is the highest level of school you have completed or the highest degree you have received? Bachelor's degree (e.g., BA, AB, BS) 03/17/2019 Sex and Gender Information Value Date Recorded Sex Assigned at Male 06/07/2019 7:29 AM CDT 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 OUTREACH DIRECTOR Gender Identity Male 03/03/2019 9:24 PM CDT Sexual Orientation Straight 03/03/2019 9: 24 PM CDT documented as of this encounter Plan of Treatment Upcoming Encounters Date Type Department Care Team (Late st Contact Info) Description 07/11/2024 8:00 AM OUTREACH DIRECTOR Office Visit [facility] Heart [facility] [address] [facility] [address] [place] [phone] Junior Chavira MD [address] [place] [address] 07/30/2024 7:30 AM OUTREACH DIRECTOR Appointment [facility] Specialty Care [address] [facility] [address] [place] [phone] Candy Trivedi MD [address] [place] [address] 08/07/2024 1:30 PM OUTREACH DIRECTOR Virtual Visit [facility] Diabetes Education [address] [phone] Stephie Mahoney MD [address] [place] [address] 094735 Federica Foster RN [address] [place] [address] 624535 01/09/2025 8:00 AM CDT Lab [facility] Laboratory [address] [place] [phone] 01/16/2025 3:30 PM CDT Virtual Visit [facility] Endocrinology Clinic [address] [phone] Stephie Mahoney MD [address] [place] [address] 499885 06/05/2025 12:30 PM CDT Office Visit [facility] Endocrinology Clinic [address] [phone] Stephie Mahoney MD [address] [place] [address] 203885 documented as of this encounter Visit Diagnoses Not on filedocumented in this encounter Additional Health Concerns Infection Onset Date Last Indicated Resolved Time Rule Out COVID-19 03/10/2022 03/10/2022 03/10/2022 1:37 AM CDT COVID-19 03/10/2022 03/10/2022 03/31/2022 11:3 9 PM CDT documented as of this encounter Care Teams Auto Mechanic Apprentice Relationship Specialty [place] [address] [place] [address] PCP - General Family Practice 11/21/16 Matt Baez MD [address] [place] [address] Assigned Heart and Vascular Provider 06/11/20 06/23/22 [place] [address] [place] [address] Assigned PCP 01/30/21 Stephie Mahoney MD [address] [place] [address] Endocrinology, Diabetes, and Metabolism 04/22/21 Federica Foster, RN [address] [place] [address] Journeyman Plumber Diabetes Education 04/22/[address] [place] [address] Journeyman Plumber Nutrition 04/22/21 Stephie Mahoney MD [address] [place] [address] Assigned Endocrinology Provider 05/08/21 Olga Garcia RN Specialty Bicycle Ii Assembler INTERNAL MEDICINE - ENDOCRINOLOGY, DIABETES & METABOLISM 09/29/22 Matt Baez MD [address] [place] [address] Assigned Heart and Vascular Provider 12/23/22 05/04/23 Junior Chavira MD [address] [place] [address] Cardiovascular Disease 05/29/24 documented as of this encounter
--- OUTSIDE RECORDS SUMMARY | 2024-07-02 08:24 | XMS_ITS | Encounter Summary ---
Author Organization [place] Address [address] [place] [address]. [place] [address] Care Team Providers Care Circulation Worker Name Role Phone Wilber Vidales MD Primary Care Provider + Wilber Vidales MD Unavailable [phone] Stephie Mahoney MD Unavailable [phone] Federica Foster RN Unavailable [phone] Unavailable [phone] Stephie Mahoney MD Unavailable [phone] Olga Garcia RN Unavailable [phone] Matt Baez MD Unavailable [phone] Junior Chavira MD Unavailable [phone] Encounter Details Date Type Department Care Team (Late st Contact Info) Description 10/11/2022 MyC Medical Advice [facility] Endocrinology Clinic [place] [address] [facility] [address] 3rd [place] [address] Stephie Mahoney MD [address] [place] [address] 101 [place] [address] Social History Tobacco Use Types [...] Answer Date Recorded PHQ-2 Score 0 09/29/2022 [facility] Questionnaire Answer Date [...] AM CDT 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 ADOLESCENT COUNSELOR Gender Identity Male 03/03/2019 9:24 PM CDT Sexual Orientation Straight 03/03/2019 9: 24 PM CDT COVID-19 Exposure Response Date Recorded In the last 10 days, have yo u been in contact with someone who was confirmed or suspected to have Coronavirus/COVID-19? No / Unsure 10/13/2022 11:29 AM ADOLESCENT COUNSELOR documented as of this encounter Plan of Treatment Upcoming Encounters Date Type Department Care Team (Late st Contact Info) Description 07/11/2024 8:00 AM ADOLESCENT COUNSELOR Office Visit [facility] Heart [facility] [address] [place] [address] [address] [place] [address] Junior Chavira MD [address] [place] [address] 07/30/2024 7:30 AM ADOLESCENT COUNSELOR Appointment [facility] Specialty Care [address] [place] [address] Candy Trivedi MD [address] [place] [address] 08/07/2024 1:30 PM ADOLESCENT COUNSELOR Virtual Visit [facility] Diabetes Education [address] [phone] Stephie Mahoney MD [address] [place] [address] 883415 Federica Foster RN [address] [place] [address] 01/09/2025 8:00 AM CDT Lab [facility] Laboratory [address] [place] [address] 01/16/2025 3:30 PM CDT Virtual Visit [facility] Endocrinology Clinic [address] [phone] Stephie Mahoney MD [address] [place] [address] 122775 06/05/2025 12:30 PM CDT Office Visit [facility] Endocrinology Clinic [address] [phone] Stephie Mahoney MD [address] [place] [address] 227185 documented as of this encounter Visit Diagnoses Not on filedocumented in this encounter Care Teams Circulation Worker Relationship Specialty Start [place] [address] [place] [address] PCP - General Family Practice 11/21/16 [place] [address] [place] [address] Assigned PCP 01/30/21 Stephie Mahoney MD [address] [place] [address] 374475 Endocrinology, Diabetes, and Metabolism 04/22/21 Federica Foster, RN 420 [place], [place] 0[address] Marine Pipefitter Helper Diabetes Education 04/22/[address] [place] [address] [phone] Marine Pipefitter Helper Nutrition 04/22/21 Stephie Mahoney MD [address] [place] [address] [phone] Assigned Endocrinology Provider 05/08/21 Olga Garcia, RN Specialty Technical Training Instructor INTERNAL MEDICINE - ENDOCRINOLOGY, DIABETES & METABOLISM 09/29/22 Matt Baez MD [address] [place] [address]37[address] Assigned Heart and Vascular Provider 12/23/22 05/04/23 Junior Chavira MD [address] [place] [id number] Cardiovascular Disease 05/29/24 documented as of this encounter
--- OUTSIDE RECORDS SUMMARY | 2024-07-02 08:24 | XMS_ITS | Encounter Summary ---
Author Organization [facility] Address [address] [place] [address]. [place] [address] Care Team Providers Care Bonding And Composite Fabricator Name Role Phone Wilber Vidales MD Primary Care Provider + Matt Baez MD Unavailable [phone] Wilber Vidales MD Unavailable [phone] Stephie Mahoney MD Unavailable Federica Foster RN Unavailable Tova Welch RD Unavailable +[phone] Stephie Mahoney MD Unavailable [phone] Olga Garcia RN Unavailable [phone] Matt Baez MD Unavailable [phone] Junior Chavira MD Unavailable [phone] Encounter Details Date Type Department Care Team (Late st Contact Info) Description 08/09/2021 MyC Medical Advice [facility] Diabetes Education [place] 6[address] [facility] 3rd [place] [address] Federica Foster, RN [address] [place] [address] Social History Tobacco Use Types [...] How often do you attend [facility] or mormonism services? More than 4 times per year [...] Answer Date Recorded PHQ-2 Score 0 06/27/2021 [facility] of Occupat ionne Health - Occupational Stress Questionnaire Answer Date [...] place to sleep or slept in a snf (including now)? No 06/27/2021 Education Answer Date Recorded What is the highest level of school you have completed or the highest degree you have received? Bachelor's degree (e.g., BA, AB, BS) 03/17/2019 Sex and Gender Information Value Date Recorded Sex Assigned at Male 06/07/2019 7:29 AM CDT 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 AIRCRAFT ORDNANCE SYSTEMS MECHANIC Gender Identity Male 03/03/2019 9:24 PM CDT Sexual Orientation Straight 03/03/2019 9: 24 PM CDT documented as of this encounter Plan of Treatment Upcoming Encounters Date Type Department Care Team (Late st Contact Info) Description 07/11/2024 8:00 AM AIRCRAFT ORDNANCE SYSTEMS MECHANIC Office Visit [facility] Heart [facility] [address] [facility] [address] [place] [phone] Junior Chavira MD [address] [place] [address] 07/30/2024 7:30 AM AIRCRAFT ORDNANCE SYSTEMS MECHANIC Appointment [facility] Specialty Care [address] [facility] [address] [place] [phone] Candy Trivedi MD [address] [place] [address] 08/07/2024 1:30 PM AIRCRAFT ORDNANCE SYSTEMS MECHANIC Virtual Visit [facility] Diabetes Education [address] [phone] Stephie Mahoney MD [address] [place] [address] 840155 Federica Foster RN [address] [place] [address] 306255 01/09/2025 8:[address] [facility] Laboratory [address] [place] [phone] 01/16/2025 3:30 PM CDT Virtual Visit [facility] Endocrinology Clinic [address] [phone] Stephie Mahoney MD [address] [place] [address] 290515 06/05/2025 12:30 PM CDT Office Visit [facility] Endocrinology Clinic [address] [phone] Stephie Mahoney MD [address] [place] [address] 144865 documented as of this encounter Visit Diagnoses Not on filedocumented in this encounter Additional Health Concerns Infection Onset Date Last Indicated Resolved Time Rule Out COVID-19 03/10/2022 03/10/2022 03/10/2022 1:37 AM CDT COVID-19 03/10/2022 03/10/2022 03/31/2022 11:3 9 PM CDT documented as of this encounter Care Teams Bonding And Composite Fabricator Relationship Specialty [place] [address] [place] [address] PCP - General Family Practice 11/21/16 Matt Baez MD [address] [place] [address] Assigned Heart and Vascular Provider 06/11/20 06/23/22 [place] [address] [place] [address] Assigned PCP 01/30/21 Stephie Mahoney MD [address] [place] [address] Endocrinology, Diabetes, and Metabolism 04/22/21 Federica Foster, RN [address] [place] [address] [facility] [employer] Diabetes Education 04/22/[address] [place] [address] [employer] Nutrition 04/22/21 Stephie Mahoney MD [address] [place] [address] Assigned Endocrinology Provider 05/08/21 Olga Garcia RN Specialty Supervisor [employer] INTERNAL MEDICINE - ENDOCRINOLOGY, DIABETES & METABOLISM 09/29/22 Matt Baez MD [address] [place] [address] Assigned Heart and Vascular Provider 12/23/22 05/04/23 Junior Chavira MD [address] [place] [address] Cardiovascular Disease 05/29/24 documented as of this encounter
--- OUTSIDE RECORDS SUMMARY | 2024-07-02 08:24 | XMS_ITS | Encounter Summary ---
Author Organization [facility] Address [address] [place] [address]. [place] [address] Care Team Providers Care Top Executive Name Role Phone Wilber Vidales MD Primary Care Provider + Matt Baez MD Unavailable [phone] Wilber Vidales MD Unavailable [phone] Stephie Mahoney MD Unavailable Federica Foster RN Unavailable [phone] Unavailable [phone] Stephie Mahoney MD Unavailable [phone] Olga Garcia RN Unavailable [phone] Matt Baez MD Unavailable [phone] Junior Chavira MD Unavailable [phone] Encounter Details Date Type Department Care Team (Late st Contact Info) Description 05/09/2021 MyC Medical Advice [facility] Diabetes Education [place] 925[address] [facility] 3rd [place] [address] Tova Welch, RD [address] [place] [address] Social History Tobacco Use Types Packs/Day Years [...] and Family Once a week 03/17/2019 Attends Rastafarian Services More than 4 times per year [...] Answer Date Recorded PHQ-2 Score 0 03/21/2021 [facility] of Occupat [...] AM CDT 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 ASBESTOS CLOTH INSPECTOR Gender Identity Male 03/03/2019 9:24 PM [...] st Contact Info) Description 07/11/2024 8:00 AM ASBESTOS CLOTH INSPECTOR Office Visit [facility] Heart [facility] [address] [facility] [address] [place] [phone] Junior Chavira MD [address] [place], [place] 94[address] 07/30/2024 7:30 AM ASBESTOS CLOTH INSPECTOR Appointment [facility] Specialty Care [address] [facility] [address] [place] [phone] Candy Trivedi MD [address] [place] [address] 08/07/2024 1:30 PM ASBESTOS CLOTH INSPECTOR Virtual Visit [facility] Diabetes Education [place] [address] [facility] 3rd [place] [phone] Stephie Mahoney MD 420 [facility] 101 [place], [place] 652405 Federica Foster RN 420 [place] [address] 01/09/2025 8:00 AM CDT Lab [address] [place] [address] 01/16/2025 3:30 PM CDT Virtual Visit [facility] Endocrinology Clinic [address] [phone] Stephie Mahoney MD [address] [place] [address] 373175 06/05/2025 12:30 PM CDT Office Visit [facility] Endocrinology [address] [phone] Stephie Mahoney MD [address] [place] [address] 657415 documented as of this encounter Visit Diagnoses Not on filedocumented in this encounter Additional Health Concerns Infection Onset Date Last Indicated Resolved Time Rule Out COVID-19 03/10/2022 03/10/2022 03/10/2022 1:37 AM CDT COVID-19 03/10/2022 03/10/2022 03/31/2022 11:3 9 PM CDT documented as of this encounter Care Teams Top Executive Relationship Specialty [place] [address] [facility] [address] PCP - General Family Practice 11/21/16 Matt Baez MD [address] [facility] [address] [place] [address] Assigned Heart and Vascular Provider 06/11/20 06/23/22 [place] [address] [facility] [address] Assigned PCP 01/30/21 Stephie Mahoney MD [address] [place] [address] Endocrinology, Diabetes, and Metabolism 04/22/21 Federica Foster, RN 420 [place] [address] Claim Professional Diabetes Education 04/22/[address] [place] [address] Claim Professional Nutrition 04/22/21 Stephie Mahoney MD [address] [place] [address] Assigned Endocrinology Provider 05/08/21 Olga Garcia RN Specialty Linen Folder INTERNAL MEDICINE - ENDOCRINOLOGY, DIABETES & METABOLISM 09/29/22 Matt Baez MD [address] [place] 074075 Assigned Heart and Vascular Provider 12/23/22 05/04/23 Junior Chavira MD [address] [place] 610945 Cardiovascular Disease 05/29/24 documented as of this encounter
--- OUTSIDE RECORDS SUMMARY | 2024-07-02 08:25 | XMS_ITS | Encounter Summary ---
Author Organization [facility] Address [address] [place], [place] [address]. [place] [address] Care Team Providers Care Nursing Attendant Name Role Phone Wilber Vidales MD Primary Care Provider + Wilber Vidales MD Unavailable [phone] Matt Baez MD Unavailable [phone] Wilber Vidales MD Unavailable [phone] Wilber Vidales MD Unavailable [phone] Stephie Mahoney MD Unavailable [phone] Federica Foster RN Unavailable [phone] Unavailable [phone] Stephie Mahoney MD Unavailable [phone] Olga Garcia RN Unavailable [phone] Matt Baez MD Unavailable [phone] Junior Chavira MD Unavailable [phone] Encounter Details Date Type Department Care Team (Late st Contact Info) Description 07/01/2019 MyC Medical Advice [facility] Cardiothoracic [address] [address] Ej Haines MD 420 [facility] 207 [place] [address] Social History Tobacco Use Types [...] and Family Once a week 03/17/2019 Attends [employer] Services More than 4 times per year [...] PHQ-2 Answer Date Recorded PHQ-2 Score 0 08/27/2018 [facility] of Occupat ional Health - Occupational Stress [...] AM CDT 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 CENTRIFUGAL SCREEN TENDER Gender Identity Male 03/03/2019 9:24 PM CDT Sexual Orientation Straight 03/03/2019 9: 24 PM CDT documented as of this encounter Plan of Treatment Upcoming Encounters Date Type Department Care Team (Late st Contact Info) Description 07/11/2024 8:00 AM CENTRIFUGAL SCREEN TENDER Office Visit [facility] Heart [facility] [address] [facility] [address] [place] [phone] Junior Chavira MD [address] [place], [place] [address] 07/30/2024 7:30 AM CENTRIFUGAL SCREEN TENDER Appointment [facility] Specialty Care [address] [facility] [address] [place] [phone] Candy Trivedi MD [address] [place] [address] 08/07/2024 1:30 PM CENTRIFUGAL SCREEN TENDER Virtual Visit [facility] Diabetes Education [address] 3rd [place] [phone] Stephie Mahoney MD 420 [facility] 101 [place] [address] Federica Foster, MENDEL 420 [place], [place] [address] 01/09/2025 8:00 AM CDT Lab [facility] [address] [place] [address] 01/16/2025 3:30 PM CDT Virtual Visit [facility] Endocrinology Clinic [address] 3rd [place] [phone] Stephie Mahoney MD [address] 969345 06/05/2025 12:30 PM CDT Office Visit [facility] Endocrinology [address] 3rd [place] [phone] Stephie Mahoney MD [address] 627605 documented as of this encounter Visit Diagnoses Not on filedocumented in this encounter Additional Health Concerns Infection Onset Date Last Indicated Resolved Time Rule Out COVID-19 03/10/2022 03/10/2022 03/10/2022 1:37 AM CDT COVID-19 03/10/2022 03/10/2022 03/31/2022 11:3 9 PM CDT documented as of this encounter Care Teams Nursing Attendant Relationship Specialty [place] [address] [address] [address] PCP - General Family Practice 11/21/16 [place] [address] [address] [address] Assigned PCP 10/31/20 01/29/21 Matt Baez MD [address] [place] [address] Assigned Heart and Vascular Provider 06/11/20 06/23/22 [place] [address] [address] [address] Assigned PCP 11/02/16 10/30/20 [place] [address] [place] [address] Assigned PCP 01/30/21 Stephie Mahoney MD [address] 173135 Endocrinology, Diabetes, and Metabolism 04/22/21 Federica Foster RN [address] [place] [address] 112675 Nurses Assistant Diabetes Education 04/22/[address] [place] [address] 857354 Nurses Assistant Nutrition 04/22/21 Stephie Mahoney MD [address] [place] [address] [phone] Assigned Endocrinology Provider 05/08/21 Olga Garcia RN Specialty Flash Oven Operator INTERNAL MEDICINE - ENDOCRINOLOGY, DIABETES & METABOLISM 09/29/22 Matt Baez MD [address] [place] 494965 Assigned Heart and Vascular Provider 12/23/22 05/04/23 Junior Chavira MD [address] [place] 997155 Cardiovascular Disease 05/29/24 documented as of this encounter
--- OUTSIDE RECORDS SUMMARY | 2024-07-02 08:25 | XMS_ITS | Encounter Summary ---
Author Organization [facility] Address [address] [place], [place] [address]jeromy. [place] [address] Care Team Providers Care Roulette Dealer Name Role Phone Wilber Vidales MD Primary Care Provider + Wilber Vidales MD Unavailable [phone] Matt Baez MD Unavailable [phone] Wilber Vidales MD Unavailable [phone] Wilber Vidales MD Unavailable [phone] Stephie Mahoney MD Unavailable [phone] Federica Foster RN Unavailable [phone] Unavailable [phone] Stephie Mahoney MD Unavailable [phone] Olga Garcia RN Unavailable [phone] Matt Baez MD Unavailable [phone] Junior Chavira MD Unavailable [phone] Encounter Details Date Type Department Care Team (Late st Contact Info) Description 09/11/2019 [facility] Heart [facility] [address] [employer] [address] [place] [address] Matt Baez MD [address] [facility] [address] [place] [address] Social History Tobacco Use Types Packs/Day Years [...] and Family Once a week 03/17/2019 Attends Alevism Services More than 4 times per year [...] Answer Date Recorded PHQ-2 Score 0 08/27/2018 [facility] of Occupat ional Health - Occupational [...] AM CDT 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 PHOTOGRAMMETRY AIRPLANE PILOT Gender Identity Male 03/03/2019 9:24 PM CDT Sexual Orientation Straight 03/03/2019 9: 24 PM CDT documented as of this encounter Plan of Treatment Upcoming Encounters Date Type Department Care Team (Late st Contact Info) Description 07/11/2024 8:00 AM PHOTOGRAMMETRY AIRPLANE PILOT Office Visit [facility] Heart [facility] [address] [employer] [address] [place] [phone] Junior Chavira MD [address] [place], [place] [address] 07/30/2024 7:30 AM PHOTOGRAMMETRY AIRPLANE PILOT Appointment [facility] Specialty Care [address] [employer] [address] [place] [phone] Candy Trivedi MD [address] [place], [place] [address] 08/07/2024 1:30 PM PHOTOGRAMMETRY AIRPLANE PILOT Virtual Visit [facility] Diabetes Education [place] [address] [facility] 3rd [place] [address] Stephie Mahoney MD 420 [facility] 101 [place], [place] 215105 Federica Foster RN 420 [place], [place] 7[address] 01/09/2025 8:00 AM CDT Lab [facility] Laboratory [address] [place] [phone] 01/16/2025 3:30 PM CDT Virtual Visit [facility] Endocrinology Clinic [address]rd [place] [phone] Stephie Mahoney MD [address] [address] 06/05/2025 12:30 PM CDT Office Visit [facility] Endocrinology [facility] 909 [facility] 3rd [place] [phone] Stephie Mahoney MD [address] 479435 documented as of this encounter Visit Diagnoses Not on filedocumented in this encounter Additional Health Concerns Infection Onset Date Last Indicated Resolved Time Rule Out COVID-19 03/10/2022 03/10/2022 03/10/2022 1:37 AM CDT COVID-19 03/10/2022 03/10/2022 03/31/2022 11:3 9 PM CDT documented as of this encounter Care Teams Roulette Dealer Relationship Specialty [place] [address] [address] [address] PCP - General Family Practice 11/21/16 [place] [address] [address] [address] Assigned PCP 10/31/20 01/29/21 Matt Baez MD [address] [place] [address] Assigned Heart and Vascular Provider 06/11/20 06/23/22 [place] [address] [address] [address] Assigned PCP 11/02/16 10/30/20 [place] [address] [place] [address] Assigned PCP 01/30/21 Stephie Mahoney MD [address] [place] [address] 212345 Endocrinology, Diabetes, and Metabolism 04/22/21 Feedrica Foster RN [address] [place] [address] 765865 Lamp Shades Supervisor Diabetes Education 04/22/[address] [place] [address] 363264 Lamp Shades Supervisor Nutrition 04/22/21 Stephie Mahoney MD [address] [place] [address] 151465 Assigned Endocrinology Provider 05/08/21 Olga Garcia RN Specialty Educational Paraprofessional INTERNAL MEDICINE - ENDOCRINOLOGY, DIABETES & METABOLISM 09/29/22 Matt Baez MD [address] [place] [address] Assigned Heart and Vascular Provider 12/23/22 05/04/23 Junior Chavira MD [address] [place] [address] Cardiovascular Disease 05/29/24 documented as of this encounter
--- OUTSIDE RECORDS SUMMARY | 2024-07-02 08:25 | XMS_ITS | Encounter Summary ---
Author Organization [place] Address [address] [place], [place] [address]omy. [place] [address] Care Team Providers Care Blocker Hand Name Role Phone Wilber Vidales MD Primary Care Provider + Wilber Vidales MD Unavailable [phone] Matt Baez MD Unavailable [phone] Wilber Vidales MD Unavailable [phone] Wilber Vidales MD Unavailable [phone] Stephie Mahoney MD Unavailable [phone] Federica Foster RN Unavailable [phone] Unavailable [phone] Stephie Mahoney MD Unavailable [phone] Olga Garcia RN Unavailable [phone] Matt Baez MD Unavailable [phone] Junior Chavira MD Unavailable [phone] Encounter Details Date Type Department Care Team (Late st Contact Info) Description 07/31/2019 MyC Medical Advice [facility] Cardiothoracic [address] [address] Ej Haines MD 420 [facility] 207 [place] [address] Social History Tobacco Use Types [...] and Family Once a week 03/17/2019 Attends Mosque Services More than 4 times per year [...] Answer Date Recorded PHQ-2 Score 0 08/27/2018 [facility] of Occupat ional Health - Occupational Stress [...] AM CDT 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 Gender Identity Male 03/03/2019 9:24 PM CDT Sexual Orientation Straight 03/03/2019 9: 24 PM CDT documented as of this encounter Plan of Treatment Upcoming Encounters Date Type Department Care Team (Late st Contact Info) Description 07/11/2024 8:00 AM SUPERVISOR FIBERGLASS BOAT ASSEMBLY Office Visit [facility] Heart [facility] [address] [facility] [address] [place] [phone] Junior Chavira MD [address] [place], [place] [address] 07/30/2024 7:30 AM SUPERVISOR FIBERGLASS BOAT ASSEMBLY Appointment [facility] Specialty Care [address] [facility] [address] [place] [phone] Candy Trivedi MD [address] [place] [address] 08/07/2024 1:30 PM SUPERVISOR FIBERGLASS BOAT ASSEMBLY Virtual Visit [facility] Diabetes Education [address] 3rd [place] [phone] Stephie Mahoney MD 420 [facility] 101 [place] [address] Federica Foster, MENDEL 420 [place], [place] [address] 01/09/2025 8:00 AM CDT Lab [facility] Laboratory [address] [place] [address] 01/16/2025 3:30 PM CDT Virtual Visit [facility] Endocrinology Clinic [address]rd [place] [phone] Stephie Mahoney MD [address] 240865 06/05/2025 12:30 PM CDT Office Visit [facility] Endocrinology [address]rd [place] [address] Stephie Mahoney MD [address] 136025 documented as of this encounter Visit Diagnoses Not on filedocumented in this encounter Additional Health Concerns Infection Onset Date Last Indicated Resolved Time Rule Out COVID-19 03/10/2022 03/10/2022 03/10/2022 1:37 AM CDT COVID-19 03/10/2022 03/10/2022 03/31/2022 11:3 9 PM CDT documented as of this encounter Care Teams Blocker Hand Relationship Specialty [place] [address] [address] [address] PCP - General Family Practice 11/21/16 [place] [address] [address] [address] Assigned PCP 10/31/20 01/29/21 Matt Baez MD [address] [place] [address] Assigned Heart and Vascular Provider 06/11/20 06/23/22 [place] [address] [address] [address] Assigned PCP 11/02/16 10/30/20 [place] [address] [place] [address] Assigned PCP 01/30/21 Stephie Mahoney MD [address] 385235 Endocrinology, Diabetes, and Metabolism 04/22/21 Federica Foster RN [address] [place] [address] [phone] Linen Grader Diabetes Education 04/22/[address] [place] [address] 940974 Linen Grader Nutrition 04/22/21 Stephie Mahoney MD [address] [place] [address] 759375 Assigned Endocrinology Provider 05/08/21 Olga Garcia RN Specialty Roadmaster INTERNAL MEDICINE - ENDOCRINOLOGY, DIABETES & METABOLISM 09/29/22 Matt Baez MD [address] [place] 168325 Assigned Heart and Vascular Provider 12/23/22 05/04/23 Junior Chavira MD [address] [place] 123965 Cardiovascular Disease 05/29/24 documented as of this encounter
--- OUTSIDE RECORDS SUMMARY | 2024-07-02 08:25 | XMS_ITS | Encounter Summary ---
Author Organization [facility] Address [address] [place] [address]. [place] [address] Care Team Providers Care Farm Mechanic Name Role Phone Wilber Vidales MD Primary Care Provider + Wilber Vidales MD Unavailable +[phone] Matt Baez MD Unavailable +[phone] Wilber Vidales MD Unavailable +[phone] Wilber Vidales MD Unavailable +[phone] Stephie Mahoney MD Unavailable +[phone] Federica Foster RN Unavailable +[phone] Unavailable [phone] Stephie Mahoney MD Unavailable +[phone] Olga Garcia RN Unavailable +[phone] Matt Baez MD Unavailable [phone] Junior Chavira MD Unavailable [phone] Reason for Visit * Reason Onset Date Comments Medication Question 11/24/2019 Chlorthalido ne Encounter Details Date Type Department Care Team (Late st Contact Info) Description 11/24/2019 [facility] [address] [place] [address], [address] [place] [address] [place] [address] [place] [address] Medication Question (Chlorthalidone) Social History Tobacco Use Types Packs/Day Years [...] and Family Once a week 03/17/2019 Attends Nondenominational Services More than 4 times per year [...] Answer Date Recorded PHQ-2 Score 0 08/27/2018 [facility] of Occupat ional Health - Occupational [...] AM CDT 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 LABORATORY ANALYST Gender Identity Male 03/03/2019 9:24 PM CDT Sexual Orientation Straight 03/03/2019 9: 24 PM CDT COVID-19 Exposure Response Date Recorded In the last month, have you been in contact with someone who was confirmed or suspected to have Coronavirus / COVID-19? No / Unsure 11/24/2019 3:21 PM CDT documented as of this encounter Plan of Treatment Upcoming Encounters Date Type Department Care Team (Late st Contact Info) Description 07/11/2024 8:00 AM LABORATORY ANALYST Office Visit [facility] [place] [address] [facility] [address] [place] [address] Junior Chavira MD [address] [place], [place] [address] 07/30/2024 7:30 AM LABORATORY ANALYST Appointment [facility] [address] [facility] [address] [place] [phone] Candy Trivedi MD [address] [place], [place] [address] 08/07/2024 1:30 PM LABORATORY ANALYST Virtual Visit [facility] Diabetes Education [place] [address] [facility] [address] 3rd [place] [phone] Stephie Mahoney MD 420 [facility] 101 [place], [place] [address] Federica Foster, RN 420 [place] [address] 01/09/2025 8:00 AM CDT Lab [facility] Laboratory [address] [place] [address] 01/16/2025 3:[address] PM CDT Virtual [address] [facility] Endocrinology [address] [phone] Stephie Mahoney MD [address] [place] [address] 06/05/2025 12:30 PM CDT Office Visit [facility] Endocrinology [address] [phone] Stephie Mahoney MD [address] [place] [address] documented as of this encounter Visit Diagnoses Diagnosis Benign essential hypertension- Primary Essential hypertension, benign documented in this encounter Additional Health Concerns Infection Onset Date Last Indicated Resolved Time Rule Out COVID-19 03/10/2022 03/10/2022 03/10/2022 1:37 AM CDT COVID-19 03/10/2022 03/10/2022 03/31/2022 11:3 9 PM CDT documented as of this encounter Care Teams Farm Mechanic Relationship Specialty [place] [address] [place] [address] PCP - General Family Practice 11/21/16 [place] [address] [place] [address] Assigned PCP 10/31/20 01/29/21 Matt Baez MD [address] [place] [address] Assigned Heart and Vascular Provider 06/11/20 06/23/22 [place] [address] [place] [address] Assigned PCP 11/02/16 10/30/20 [place] [address] [address] [place], [place] [address] Assigned PCP 01/30/21 Stephie Mahoney MD [address] [place] [address] Endocrinology, Diabetes, and Metabolism 04/22/21 Federica Foster RN [address] [place] [address] Measurement Psychologist Diabetes Education 04/22/[address] [place] [address] Measurement Psychologist Nutrition 04/22/21 Stephie Mahoney MD [address] [place] [address] Assigned Endocrinology Provider 05/08/21 Olga Garcia, RN Specialty Sod Farmer INTERNAL MEDICINE - ENDOCRINOLOGY, DIABETES & METABOLISM 09/29/22 Matt Baez MD [address] [place] [address] Assigned Heart and Vascular Provider 12/23/22 05/04/23 Junior Chavira MD [address] [place] [address] Cardiovascular Disease 05/29/24 documented as of this encounter
--- OUTSIDE RECORDS SUMMARY | 2024-07-02 08:25 | XMS_ITS | Encounter Summary ---
Author Organization [place] Address [address] [place] [address]. [place] [address] Care Team Providers Care Remote Sensing Scientist Name Role Phone Wilber Vidales MD Primary Care Provider + Wilber Vidales MD Unavailable [phone] Matt Baez MD Unavailable [phone] Wilber Vidales MD Unavailable +[phone] Wilber Vidales MD Unavailable +[phone] Stephie Mahoney MD Unavailable +[phone] Federica Foster RN Unavailable +[phone] Unavailable [phone] Stephie Mahoney MD Unavailable [phone] Olga Garcia RN Unavailable +[phone] Matt Baez MD Unavailable [phone] Junior Chavira MD Unavailable [phone] Encounter Details Date Type Department Care Team (Late st Contact Info) Description 07/02/2019 [facility] Medical Advice [facility] [address] [place] [address] Tiarra Poole, RN Social History Tobacco Use Types Packs/Day [...] and Family Once a week 03/17/2019 Attends Scientologist Services More than 4 times per year [...] Answer Date Recorded PHQ-2 Score 0 08/27/2018 [facility] [place] of Occupat ional Health - Occupational Stress [...] AM CDT 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 SORORITY SUPERVISOR Gender Identity Male 03/03/2019 9:24 PM CDT Sexual Orientation Straight 03/03/2019 9: 24 PM CDT documented as of this encounter Plan of Treatment Upcoming Encounters Date Type Department Care Team (Late st Contact Info) Description 07/11/2024 8:00 AM SORORITY SUPERVISOR Office Visit [facility] [address] [facility] [address] [place] [address] Junior Chavira MD [address] [place], [place] [address] 07/30/2024 7:30 AM SORORITY SUPERVISOR Appointment [facility] Specialty Care [address] [facility] [address] [place] [address] Candy Trivedi MD [address] [place], [place] [address] 08/07/2024 1:30 PM SORORITY SUPERVISOR Virtual Visit [facility] Diabetes Education [address] [address] Stephie Mahoney MD 420 [facility] 101 [place], [place] [address] Federica Foster RN 420 [place], [place] [address] 01/09/2025 8:00 AM CDT Lab [facility] Laboratory [address] [place] [address] 01/16/2025 3:30 PM CDT Virtual Visit [facility] [address] [phone] Stephie Mahoney MD [address] 9208[address] 06/05/2025 12:30 PM CDT Office Visit [facility] [place] [address] [facility] [address] 3rd [place] [address] Stephie Mahoney MD [address] 731105 documented as of this encounter Visit Diagnoses Not on filedocumented in this encounter Additional Health Concerns Infection Onset Date Last Indicated Resolved Time Rule Out COVID-19 03/10/2022 03/10/2022 03/10/2022 1:37 AM CDT COVID-19 03/10/2022 03/10/2022 03/31/2022 11:3 9 PM CDT documented as of this encounter Care Teams Remote Sensing Scientist Relationship Specialty [place] [address] [place] [address] PCP - General Family Practice 11/21/16 [place] [address] [place] [address] Assigned PCP 10/31/20 01/29/21 Matt Baez MD [address] [place] [address] Assigned Heart and Vascular Provider 06/11/20 06/23/22 [place] [address] [place] [address] [address] Assigned PCP 11/02/16 10/30/20 [place] [address] [place] [address] Assigned PCP 01/30/21 Stephie Mahoney MD [address] [place] [address] Endocrinology, Diabetes, and Metabolism 04/22/21 Federica Foster, RN [address] [place] [address] Yeast Tender Diabetes Education 04/22/[address] [place] [address] Yeast Tender Nutrition 04/22/21 Stephie Mahoney MD [address] [place] [address] Assigned Endocrinology Provider 05/08/21 Olga Garcia RN Specialty Product Specialist INTERNAL MEDICINE - ENDOCRINOLOGY, DIABETES & METABOLISM 09/29/22 Matt Baez MD [address] [place] [address] Assigned Heart and Vascular Provider 12/23/22 05/04/23 Junior Chavira MD [address] [place] 6987[address] Cardiovascular Disease 05/29/24 documented as of this encounter
--- OUTSIDE RECORDS SUMMARY | 2024-07-02 08:25 | XMS_ITS | Encounter Summary ---
Author Organization [place] Address [address] [place], [place] [address]. [place] [address] Care Team Providers Care Mold Sprayer Name Role Phone Wilber Vidales MD Primary Care Provider + Wilber Vidales MD Unavailable [phone] Matt Baez MD Unavailable [phone] Wilber Vidales MD Unavailable +[phone] Wilber Vidales MD Unavailable +[phone] Stephie Mahoney MD Unavailable [phone] Federica Foster RN Unavailable [phone] Unavailable [phone] Stephie Mahoney MD Unavailable [phone] Olga Garcia RN Unavailable [phone] Matt Baez MD Unavailable [phone] Junior Chavira MD Unavailable [phone] Encounter Details Date Type Department Care Team (Late st Contact Info) Description 09/12/2019 [facility] [address] [employer] [address] [place] [address] Matt Baez MD [address] [facility] [address] [place] [address] Social History Tobacco Use Types Packs/Day Years [...] and Family Once a week 03/17/2019 Attends Gnosticist Services More than 4 times per year [...] Answer Date Recorded PHQ-2 Score 0 08/27/2018 [facility] of Occupat ional Health - Occupational [...] AM CDT 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 SHIPS OR BARGES LOADER Gender Identity Male 03/03/2019 9:24 PM CDT Sexual Orientation Straight 03/03/2019 9: 24 PM CDT documented as of this encounter Plan of Treatment Upcoming Encounters Date Type Department Care Team (Late st Contact Info) Description 07/11/2024 8:00 AM SHIPS OR BARGES LOADER Office Visit [facility] [address] [employer] [address] [place] [address] Junior Chavira MD [address] [place], [place] [address] 07/30/2024 7:30 AM SHIPS OR BARGES LOADER Appointment [facility] Specialty Care [address] [facility] [employer] [address] [place] [address] Candy Trivedi MD [address] [place], [place] [address] 08/07/2024 1:30 PM SHIPS OR BARGES LOADER Virtual Visit [facility] Diabetes Education [place] [address] [facility] 3rd [place] [address] Stephie Mahoney MD 420 [facility] 101 [place], [place] [address] Federica Foster RN 420 [place], [place] [address] 01/09/2025 8:00 AM CDT Lab [facility] Laboratory [address] [place] [address] 01/16/2025 3:30 PM CDT Virtual Visit [facility] Endocrinology Clinic [address] [place] [phone] Stephie Mahoney MD [address] [address] 06/05/2025 12:30 PM CDT Office Visit [facility] Endocrinology [facility] 9[address] [facility] 3rd [place] [address] Stephie Mahoney MD [address] 247535 documented as of this encounter Visit Diagnoses Not on filedocumented in this encounter Additional Health Concerns Infection Onset Date Last Indicated Resolved Time Rule Out COVID-19 03/10/2022 03/10/2022 03/10/2022 1:37 AM CDT COVID-19 03/10/2022 03/10/2022 03/31/2022 11:3 9 PM CDT documented as of this encounter Care Teams Mold Sprayer Relationship Specialty [place] [address] [place] [address] PCP - General Family Practice 11/21/16 [place] [address] [place] [address] [address] Assigned PCP 10/31/20 01/29/21 Matt Baez MD [address] [place] [address] Assigned Heart and Vascular Provider 06/11/20 06/23/22 [place] [address] [address] [address] Assigned PCP 11/02/16 10/30/20 [place] [address] [place] [address] Assigned PCP 01/30/21 Stephie Mahoney MD [address] [place] [address] 687565 Endocrinology, Diabetes, and Metabolism 04/22/21 Federica Foster RN [address] [place] [address] 365715 Sales And Marketing Professional Diabetes Education 04/22/[address] [place] [address] 474174 Sales And Marketing Professional Nutrition 04/22/21 Stephie Mahoney MD [address] [place] [address] 902085 Assigned Endocrinology Provider 05/08/21 Olga Garcia RN Specialty Hair Blender INTERNAL MEDICINE - ENDOCRINOLOGY, DIABETES & METABOLISM 09/29/22 Matt Baez MD [address] [place] [address] Assigned Heart and Vascular Provider 12/23/22 05/04/23 Junior Chavira MD [address] [place] [address] Cardiovascular Disease 05/29/24 documented as of this encounter
--- OUTSIDE RECORDS SUMMARY | 2024-07-02 08:25 | XMS_ITS | Encounter Summary ---
Author Organization [place] Address [address] [place] [address]. [place] [address] Care Team Providers Care Residential Property Manager Name Role Phone Wilber Vidales MD Primary Care Provider + Wilber Vidales MD Unavailable [phone] Matt Baez MD Unavailable [phone] Wilber Vidales MD Unavailable +[phone] iWlber Vidales MD Unavailable +[phone] Stephie Mahoney MD Unavailable +[phone] Federica Foster RN Unavailable +[phone] Unavailable [phone] Stephie Mahonye MD Unavailable +[phone] Olga Garcia RN Unavailable +[phone] Matt Baez MD Unavailable [phone] Junior Chavira MD Unavailable [phone] Encounter Details Date Type Department Care Team (Late st Contact Info) Description 07/01/2019 My[facility] Medical Advice [facility]AND[facility] [address] [place] [address] Tiarra Poole, RN Social History Tobacco Use [...] Answer Date Recorded PHQ-2 Score 0 08/27/2018 [facility] [place] of Occupat ional Health - Occupational Stress [...] AM CDT 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 IMPLEMENTATION TECHNICIAN Gender Identity Male 03/03/2019 9:24 PM CDT Sexual Orientation Straight 03/03/2019 9: 24 PM CDT documented as of this encounter Plan of Treatment Upcoming Encounters Date Type Department Care Team (Late st Contact Info) Description 07/11/2024 8:00 AM IMPLEMENTATION TECHNICIAN Office Visit [facility] [address] [facility] [address] [place] [address] Junior Chavira MD [address] [place], [place] [address] 07/30/2024 7:30 AM IMPLEMENTATION TECHNICIAN Appointment [facility] Specialty Care [address] [facility] [address] [place] [address] Candy Trivedi MD [address] [place], [place] [address] 08/07/2024 1:30 PM IMPLEMENTATION TECHNICIAN Virtual Visit [facility] Diabetes Education [address] [address] Stephie Mahoney MD 420 [facility] 101 [place], [place] [address] Federica Foster RN 420 [place], [place] [address] 01/09/2025 8:00 AM CDT Lab [facility] [address] [place] [address] 01/16/2025 3:30 PM CDT Virtual Visit [facility] Endocrinology Clinic [address] [phone] Stephie Mahoney MD [address] 0724[address] 06/05/2025 12:30 PM CDT Office Visit [facility] Endocrinology Clinic [place] 8[address] [facility] [address] 3rd [place] [address] Stephie Mahoney MD [address] 441775 documented as of this encounter Visit Diagnoses Not on filedocumented in this encounter Additional Health Concerns Infection Onset Date Last Indicated Resolved Time Rule Out COVID-19 03/10/2022 03/10/2022 03/10/2022 1:37 AM CDT COVID-19 03/10/2022 03/10/2022 03/31/2022 11:3 9 PM CDT documented as of this encounter Care Teams Residential Property Manager Relationship Specialty [place] [address] [address] [address] [address] PCP - General Family Practice 11/21/16 [place] [address] [address] [address] [address] Assigned PCP 10/31/20 01/29/21 Matt Baez MD [address] [place] [address] Assigned Heart and Vascular Provider 06/11/20 06/23/22 [place] [address] [address] [address] Assigned PCP 11/02/16 10/30/20 [place] [address] [place] [address] Assigned PCP 01/30/21 Stephie Mahoney MD [address] [place] [address] Endocrinology, Diabetes, and Metabolism 04/22/21 Federiac Foster, RN [address] [place] [address] Robotic Maintenance Technician Diabetes Education 04/22/[address] [place] [address] Robotic Maintenance Technician Nutrition 04/22/21 Stephie Mahoney MD [address] [place] [address] Assigned Endocrinology Provider 05/08/21 Olga Garcia RN Specialty Complaint Investigations Officer INTERNAL MEDICINE - ENDOCRINOLOGY, DIABETES & METABOLISM 09/29/22 Matt Baez MD [address] [place] [address] Assigned Heart and Vascular Provider 12/23/22 05/04/23 Junior Chavira MD [address] [place] [id number] Cardiovascular Disease 05/29/24 documented as of this encounter
--- OUTSIDE RECORDS SUMMARY | 2024-07-02 08:25 | XMS_ITS | Encounter Summary ---
Author Organization [place] Address [address] [place] [address]. [place] [address] Care Team Providers Care Animal Shelter Manager Name Role Phone iWlber Vidales MD Primary Care Provider + Matt Baez MD Unavailable [phone] Wilber Vidales MD Unavailable [phone] Stephie Mahoney MD Unavailable [phone] Federica Foster RN Unavailable +[phone] Unavailable [phone] Stephie Mahoney MD Unavailable +[phone] Olga Garcia RN Unavailable [phone] Matt Baez MD Unavailable [phone] Junior Chavira MD Unavailable [phone] Encounter Details Date Type Department Care Team (Late st Contact Info) Description 03/21/2021 MyC Medical Advice [facility] [address] [place] [address] Juana Hernandez PA-C [facility] [address] [place] [address] Social History Tobacco Use Types Packs/Day Years [...] and Family Once a week 03/17/2019 Attends Mandaeism Services More than 4 times per year [...] Answer Date Recorded PHQ-2 Score 0 03/21/2021 [facility] of Occupat ional Health - [...] AM CDT 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 FIXTURE FABRICATOR REPAIRER Gender Identity Male 03/03/2019 9:24 PM CDT Sexual Orientation Straight 03/03/2019 9: 24 PM CDT COVID-19 Exposure Response Date Recorded In the last month, have you been in contact with someone who was confirmed or suspected to have Coronavirus / COVID-19? No / Unsure 03/21/2021 7:19 AM CDT documented as of this encounter Plan of Treatment Upcoming Encounters Date Type Department Care Team (Late st Contact Info) Description 07/11/2024 8:00 AM FIXTURE FABRICATOR REPAIRER Office Visit [facility] [address] [facility] [address] [place] [address] Junior Chavira MD [address] [place], [place] [address] 07/30/2024 7:30 AM FIXTURE FABRICATOR REPAIRER Appointment [facility] Specialty Care [address] [facility] [address] [place] [address] Candy Trivedi MD [address] [place] [address] 08/07/2024 1:30 PM FIXTURE FABRICATOR REPAIRER Virtual Visit [facility] Diabetes Education [place] 909 [facility] [address] 3rd [place] [phone] Stephie Mahoney MD 420 [facility] 101 [place], [place] [address] Federica Foster RN 420 [place] [address] 01/09/2025 8:00 AM CDT Lab [facility] Laboratory [address] [place] [address] 01/16/2025 3:30 PM CDT Virtual Visit [facility] Endocrinology [address] [place] [address] Stephie Mahoney MD [address] [address] 06/05/2025 12:30 PM CDT Office Visit [facility] Endocrinology [address] [place] [address] Stephie Mahoney MD [address] 038535 documented as of this encounter Visit Diagnoses Not on filedocumented in this encounter Additional Health Concerns Infection Onset Date Last Indicated Resolved Time Rule Out COVID-19 03/10/2022 03/10/2022 03/10/2022 1:37 AM CDT COVID-19 03/10/2022 03/10/2022 03/31/2022 11:3 9 PM CDT documented as of this encounter Care Teams Animal Shelter Manager Relationship Specialty [place] [address] [place] [address] PCP - General Family Practice 11/21/16 Matt Baez MD [address] [facility] [address] [place] [address] Assigned Heart and Vascular Provider 06/11/20 06/23/22 [place] [address] [place] [address] Assigned PCP 01/30/21 Stephie Mahoney MD [address] [address] Endocrinology, Diabetes, and Metabolism 04/22/21 Federica Foster, RN 420 [place] [address] Truck Safety Inspector Diabetes Education 04/22/[address] [place] [address] Truck Safety Inspector Nutrition 04/22/21 Stephie Mahoney MD [address] [place] [address] Assigned Endocrinology Provider 05/08/21 Olga Garcia RN Specialty Watch Case Polisher INTERNAL MEDICINE - ENDOCRINOLOGY, DIABETES & METABOLISM 09/29/22 Matt Baez MD [address] [place] 6978[address] Assigned Heart and Vascular Provider 12/23/22 05/04/23 Junior Chavira MD [address] [place] 37[address] Cardiovascular Disease 05/29/24 documented as of this encounter
--- OUTSIDE RECORDS SUMMARY | 2024-07-02 08:25 | XMS_ITS | Encounter Summary ---
Author Organization [place] Address [address] [place], [place] [address]. [place] [address] Care Team Providers Care Online Education Manager Name Role Phone Wilber Vidales MD Primary Care Provider + Wilber Vidales MD Unavailable [phone] Matt Baez MD Unavailable +[phone] Wilber Vidales MD Unavailable +[phone] Wilber Vidales MD Unavailable +[phone] Stephie Mahoney MD Unavailable +[phone] Federica Foster RN Unavailable +[phone] Unavailable +[phone] Stephie Mahoney MD Unavailable +[phone] Olga Garcia RN Unavailable +[phone] Matt Baez MD Unavailable [phone] Junior Chavira MD Unavailable +[phone] Encounter Details Date Type Department Care Team (Late st Contact Info) Description 07/14/2019 MyC Medical Advice [facility] Cardiothoracic [address] [address] Ej Haines MD 420 [facility] 207 [place] [address] Social History Tobacco Use Types [...] Answer Date Recorded PHQ-2 Score 0 08/27/2018 [facility] - Occupational [...] AM CDT 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 MORTUARY OPERATIONS MANAGER Gender Identity Male 03/03/2019 9:24 PM CDT Sexual Orientation Straight 03/03/2019 9: 24 PM CDT documented as of this encounter Plan of Treatment Upcoming Encounters Date Type Department Care Team (Late st Contact Info) Description 07/11/2024 8:00 AM MORTUARY OPERATIONS MANAGER Office Visit [facility] [address] [facility] [address] [place] [phone] Junior Chavira MD [address] [place], [place] [address] 07/30/2024 7:30 AM MORTUARY OPERATIONS MANAGER Appointment [facility] Specialty Care [address] [facility] [address] [place] [address] Candy Trivedi MD [address] [place] [address] 08/07/2024 1:30 PM MORTUARY OPERATIONS MANAGER Virtual Visit [facility] Diabetes Education [address] 3rd [place] [phone] Stephie Mahoney MD 420 [facility] 101 [place] [address] Federica Foster, [place] 420 [place], [place] [address] 01/09/2025 8:[address] [facility] [address] [place] [address] 01/16/2025 3:30 PM CDT Virtual Visit [facility] Endocrinology Clinic [address] 3rd [place] [address] Stephie Mahoney MD [address] 073[address] 06/05/2025 12:30 PM CDT Office Visit [facility] Endocrinology [address]rd [place] [address] Stephie Mahoney MD [address] 684[address] documented as of this encounter Visit Diagnoses Not on filedocumented in this encounter Additional Health Concerns Infection Onset Date Last Indicated Resolved Time Rule Out COVID-19 03/10/2022 03/10/2022 03/10/2022 1:37 AM CDT COVID-19 03/10/2022 03/10/2022 03/31/2022 11:3 9 PM CDT documented as of this encounter Care Teams Online Education Manager Relationship Specialty [place] [address] [address] [address] PCP - General Family Practice 11/21/16 [place] [address] [address] [address] Assigned PCP 10/31/20 01/29/21 Matt Baez MD [address] [place] [address] Assigned Heart and Vascular Provider 06/11/20 06/23/22 [place] [address] [address] [address] Assigned PCP 11/02/16 10/30/20 [place] [address] [place] [address] Assigned PCP 01/30/21 Stephie Mahoney MD [address] 625[address] Endocrinology, Diabetes, and Metabolism 04/22/21 Federica Foster RN [address] [place] [address] [phone] Customs Examiner Diabetes Education 04/22/[address] [place] [address] 684514 Customs Examiner Nutrition 04/22/21 Stephie Mahoney MD [address] [place] [address] 446435 Assigned Endocrinology Provider 05/08/21 Olga Garcia RN Specialty Tag Marker INTERNAL MEDICINE - ENDOCRINOLOGY, DIABETES & METABOLISM 09/29/22 Matt Baez MD [address] [place] 326365 Assigned Heart and Vascular Provider 12/23/22 05/04/23 Junior Chavira MD [address] [place] [id number] Cardiovascular Disease 05/29/24 documented as of this encounter
--- OUTSIDE RECORDS SUMMARY | 2024-07-02 08:25 | XMS_ITS | Encounter Summary ---
Author Organization [place] Address [address] [place] [address]. [place] [address] Care Team Providers Care Food And Beverage Outlets Manager Name Role Phone Wilber Vidales MD Primary Care Provider + Wilber Vidales MD Unavailable [phone] Matt Baez MD Unavailable [phone] Wilber Vidales MD Unavailable +[phone] Wilber Vidales MD Unavailable +[phone] Stephie Mahoney MD Unavailable +[phone] Federica Foster RN Unavailable +[phone] Unavailable [phone] Stephie Mahoney MD Unavailable +[phone] Olga Garcia RN Unavailable +[phone] Matt Baez MD Unavailable +[phone] Junior Chavira MD Unavailable [phone] Encounter Details Date Type Department Care Team (Late st Contact Info) Description 06/26/2019 MyC Medical Advice [facility] [address] [place] [address] Tiarra Poole, RN Social History Tobacco Use [...] and Family Once a week 03/17/2019 Attends Pentecostalism Services More than 4 times per year [...] Answer Date Recorded PHQ-2 Score 0 08/27/2018 [facility] [place] of Occupat ional Health - Occupational Stress [...] CDT 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 MANAGER CASINO Gender Identity Male 03/03/2019 9:24 PM CDT Sexual Orientation Straight 03/03/2019 9: 24 PM CDT documented as of this encounter Plan of Treatment Upcoming Encounters Date Type Department Care Team (Late st Contact Info) Description 07/11/2024 8:00 AM MANAGER CASINO Office Visit [facility] Heart [facility] [address] [facility] [address] [place] [address] Junior Chavira MD [address] [place], [place] [address] 07/30/2024 7:30 AM MANAGER CASINO Appointment [facility] Specialty Care [address] [facility] [address] [place] [address] Candy Trivedi MD [address] [place], [place] [address] 08/07/2024 1:30 PM MANAGER CASINO Virtual Visit [facility] Diabetes Education [address] [address] Stephie Mahoney MD 420 [facility] 101 [place], [place] 50[address] Federica Foster RN 420 [place], [place] [address] 01/09/2025 8:00 AM CDT Lab [facility] [address] [place] [address] 01/16/2025 3:30 PM CDT Virtual Visit [facility] Endocrinology Clinic [address] [phone] Stephie Mahoney MD [address] 386025 06/05/2025 12:30 PM CDT Office Visit [facility] Endocrinology Clinic [place] 5[address]69 [facility] [address] 3rd [place] [address] Stephie Mahoney MD [address] 762935 documented as of this encounter Visit Diagnoses Not on filedocumented in this encounter Additional Health Concerns Infection Onset Date Last Indicated Resolved Time Rule Out COVID-19 03/10/2022 03/10/2022 03/10/2022 1:37 AM CDT COVID-19 03/10/2022 03/10/2022 03/31/2022 11:3 9 PM CDT documented as of this encounter Care Teams Food And Beverage Outlets Manager Relationship Specialty [place] [address] [address] [address] PCP - General Family Practice 11/21/16 [place] [address] [address] [address] Assigned PCP 10/31/20 01/29/21 Matt Baez MD [address] [place] [address] Assigned Heart and Vascular Provider 06/11/20 06/23/22 [place] [address] [address] [address] Assigned PCP 11/02/16 10/30/20 [place] [address] [place] [address] Assigned PCP 01/30/21 Stephie Mahoney MD [address] [place] [address] Endocrinology, Diabetes, and Metabolism 04/22/21 Federica Foster, RN [address] [place] [address] Golf Starter And Ranger Diabetes Education 04/22/[address] [place] [address] Golf Starter And Ranger Nutrition 04/22/21 Stephie Mahoney MD [address] [place] [address] Assigned Endocrinology Provider 05/08/21 Olga Garcia RN Specialty Cardiologist INTERNAL MEDICINE - ENDOCRINOLOGY, DIABETES & METABOLISM 09/29/22 Matt Baez MD [address] [place] [address] Assigned Heart and Vascular Provider 12/23/22 05/04/23 Junior Chavira MD [address] [place] 915665 Cardiovascular Disease 05/29/24 documented as of this encounter
--- OUTSIDE RECORDS SUMMARY | 2024-07-02 08:25 | XMS_ITS | Encounter Summary ---
Author Organization [place] Address [address] [place] [address]. [place] [address] Care Team Providers Care Human Resources Department Supervisor Name Role Phone Wilber Vidales MD Primary Care Provider + Wilber Vidales MD Unavailable +[phone] Matt Baez MD Unavailable [phone] Wilber Vidales MD Unavailable +[phone] Wilber Vidales MD Unavailable +[phone] Stephie Mahoney MD Unavailable +[phone] Federica Foster RN Unavailable +[phone] Unavailable [phone] Stephie Mahoney MD Unavailable [phone] Olga Garcia RN Unavailable +[phone] Matt Baez MD Unavailable [phone] Junior Chavira MD Unavailable [phone] Reason for Visit * Reason Onset Date Comments Medication Question 10/21/2020 Encounter Details Date Type Department Care Team (Late st Contact Info) Description 10/21/2020 [facility] Medical Advice [facility] [address] [place] [address] [place] [address] [address] [address] Medication Question Social History Tobacco Use Types [...] and Family Once a week 03/17/2019 Attends Synagogue Services More than 4 times per year [...] Answer Date Recorded PHQ-2 Score 0 08/27/2018 [facility] of Occupat ional [facility] - Occupational Stress Questionnaire Answer Date [...] AM CDT 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 CANE WEIGHER Gender Identity Male 03/03/2019 9:24 PM CDT Sexual Orientation Straight 03/03/2019 9: 24 PM CDT documented as of this encounter Plan of Treatment Upcoming Encounters Date Type Department Care Team (Late st Contact Info) Description 07/11/2024 8:00 AM CANE WEIGHER Office Visit [facility] [address] [place] [address] [address] [place] [phone] Junior Chavira MD [address] [place], [place] [address] 07/30/2024 7:30 AM CANE WEIGHER Appointment M [facility] Specialty Care [address] [facility] [address] [place] [address] Candy Trivedi MD [address] [place] [address] 08/07/2024 1:30 PM CANE WEIGHER Virtual Visit [facility] Diabetes Education [place] [address] [facility] 3rd [place] [phone] Stephie Mahoney MD 420 [facility] 101 [place], [place] 8812[address] Federica Foster RN 420 [place] [address] 01/09/2025 8:00 AM CDT Lab [facility] [address] [place] [address] 01/16/2025 3:30 PM CDT Virtual Visit [facility] Endocrinology [address]rd [place] [address] Stephie Mahoney MD [address] 978035 06/05/2025 12:30 PM CDT Office Visit [facility] Endocrinology [address] [place] [address] Stephie Mahoney MD [address] 688255 documented as of this encounter Visit Diagnoses Not on filedocumented in this encounter Additional Health Concerns Infection Onset Date Last Indicated Resolved Time Rule Out COVID-19 03/10/2022 03/10/2022 03/10/2022 1:37 AM CDT COVID-19 03/10/2022 03/10/2022 03/31/2022 11:3 9 PM CDT documented as of this encounter Care Teams Human Resources Department Supervisor Relationship Specialty [place] [address] [place] [address] PCP - General Family Practice 11/21/16 [place] [address] [facility] [place] [address] Assigned PCP 10/31/20 01/29/21 Matt Baez MD [address] [facility] [address] [address] Assigned Heart and Vascular Provider 06/11/20 06/23/22 [place] [address] [place] [address] Assigned PCP 11/02/16 10/30/20 [place] [address] [place] [address] Assigned PCP 01/30/21 Stephie Mahoney MD [address] [place] [address] [phone] Endocrinology, Diabetes, and Metabolism 04/22/21 Federica Foster, RN [address] [place] [address] 626575 Chip Separator Diabetes Education 04/22/[address] [place] [address] 028924 Chip Separator Nutrition 04/22/21 Stephie Mahoney MD [address] [place] [address] 954215 Assigned Endocrinology Provider 05/08/21 Olga Garcia RN Specialty Glove Cleaner INTERNAL MEDICINE - ENDOCRINOLOGY, DIABETES & METABOLISM 09/29/22 Matt Baez MD [address] [place] 301855 Assigned Heart and Vascular Provider 12/23/22 05/04/23 Junior Chavira MD [address] [place] 943335 Cardiovascular Disease 05/29/24 documented as of this encounter
--- OUTSIDE RECORDS SUMMARY | 2024-07-02 08:25 | XMS_ITS | Encounter Summary ---
Author Organization [place] Address [address] [place] [address]. [place] [address] Care Team Providers Care Linoleum Mechanic Name Role Phone Wilber Vidales MD Primary Care Provider + Wilber Vidales MD Unavailable [phone] Matt Baez MD Unavailable +[phone] Wilber Vidales MD Unavailable +[phone] Wilber Vidales MD Unavailable +[phone] Stephie Mahoney MD Unavailable +[phone] Federica Foster RN Unavailable +[phone] Unavailable [phone] Stephie Mahoney MD Unavailable +[phone] Olga Garcia RN Unavailable +[phone] Matt Baez MD Unavailable [phone] Junior Chavira MD Unavailable +[phone] Reason for Visit * Reason Onset Date Comments MyChart Communication 07/01/2019 echo Encounter Details Date Type Department Care Team (Late st Contact Info) Description 07/01/2019 [facility] [address] [place] [address], [address] [place] [address] [place] [address] [place] [address] MyChart Communication (echo) Social History Tobacco Use Types Packs/Day Years [...] and Family Once a week 03/17/2019 Attends Voodoo Services More than 4 times per year [...] Answer Date Recorded PHQ-2 Score 0 08/27/2018 [facility] of Occupat ional Health - [...] AM CDT 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 SOCIAL SCIENCE RESEARCH ASSISTANT Gender Identity Male 03/03/2019 9:24 PM CDT Sexual Orientation Straight 03/03/2019 9: 24 PM CDT documented as of this encounter Miscellaneous Notes * Telephone Encounter - Mili Avitia RN - 07/01/2019 3:08 PM CST .Please review Data Maid message Respond directly to pt if appropriate. Mili Avitia RN BS [place] SCIENCE RESEARCH ASSISTANT documented in this encounter Plan of Treatment Upcoming Encounters Date Type Department Care Team (Late st Contact Info) Description 07/11/2024 8:00 AM SOCIAL SCIENCE RESEARCH ASSISTANT Office Visit [facility] [place] [address] [facility] [address] [place] [address] Junior Chavira MD [address] [place], [place] [address] 07/30/2024 7:30 AM SOCIAL SCIENCE RESEARCH ASSISTANT Appointment M [facility] Specialty Care [address] [facility] [address] [place] [address] Candy Trivedi MD [address] [place], [place] [address] 08/07/2024 1:30 PM SOCIAL SCIENCE RESEARCH ASSISTANT Virtual Visit [facility] Diabetes Education [place] 909 [facility] [address] 3rd [place] [address] Stephie Mahoney MD [address] [place] [address] Federica Foster, RN [address] [place] [address] 01/09/2025 8:00 AM CDT Lab [facility] [address] [place] [address] 01/16/2025 3:30 PM CDT Virtual Visit [facility] Endocrinology [address] [phone] Stephie Mahoney MD [address] [place] [address] 06/05/2025 12:30 PM CDT Office Visit [facility] Endocrinology [address] [phone] Stephie Mahoney MD [address] [place] [address] documented as of this encounter Visit Diagnoses Not on filedocumented in this encounter Additional Health Concerns Infection Onset Date Last Indicated Resolved Time Rule Out COVID-19 03/10/2022 03/10/2022 03/10/2022 1:37 AM CDT COVID-19 03/10/2022 03/10/2022 03/31/2022 11:3 9 PM CDT documented as of this encounter Care Teams Linoleum Mechanic Relationship Specialty [place] [address] [address] [address] PCP - General Family Practice 11/21/16 [place] [address] [address] [address] Assigned PCP 10/31/20 01/29/21 Matt Baez MD [address] [place] [address] Assigned Heart and Vascular Provider 06/11/20 06/23/22 [place] [address] [place] [place]ann[place] 8448568 Assigned PCP 11/02/16 10/30/20 [place] [address] [address] JOHN [place] [phone] Assigned PCP 01/30/21 Stephie Mahoney MD [address] [address] Endocrinology, Diabetes, and Metabolism 04/22/21 Federica Foster RN [address] [place] [address] Physiatrist Diabetes Education 04/22/21 Tova Welch, RD [address] [place] [address] Physiatrist Nutrition 04/22/21 Stephie Mahoney MD [address] 216665 Assigned Endocrinology Provider 05/08/21 Olga Garcia, RN Specialty Business Services Analyst INTERNAL MEDICINE - ENDOCRINOLOGY, DIABETES & METABOLISM 09/29/22 Matt Baez MD [address] [place] [address] Assigned Heart and Vascular Provider 12/23/22 05/04/23 Junior Chavira MD [address] [place] [address] Cardiovascular Disease 05/29/24 documented as of this encounter
--- OUTSIDE RECORDS SUMMARY | 2024-07-02 08:25 | XMS_ITS | Encounter Summary ---
Author Organization [place] Address [address] [place], [place] [address]. [place] [address] Care Team Providers Care Health Education Director Name Role Phone Wilber Vidales MD Primary Care Provider + Wilber Vidales MD Unavailable [phone] Matt Baez MD Unavailable +[phone] Wilber Vidales MD Unavailable [phone] Wilber Vidales MD Unavailable +[phone] Stephie Mahoney MD Unavailable +[phone] Federica Foster RN Unavailable +[phone] Unavailable [phone] Stephie Mahoney MD Unavailable +[phone] Olga Garcia RN Unavailable +[phone] Matt Baez MD Unavailable [phone] Junior Chavira MD Unavailable [phone] Encounter Details Date Type Department Care Team (Late st Contact Info) Description 07/16/2019 MyC Medical Advice [facility] Cardiothoracic [address] [address] Ej Hainse MD 420 [facility] [address] [place] [address] Social History Tobacco Use Types [...] and Family Once a week 03/17/2019 Attends Congregational Services More than 4 times per year [...] AM CDT 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 COYOTE HUNTER Gender Identity Male 03/03/2019 9:24 PM CDT Sexual Orientation Straight 03/03/2019 9: 24 PM CDT documented as of this encounter Plan of Treatment Upcoming Encounters Date Type Department Care Team (Late st Contact Info) Description 07/11/2024 8:00 AM COYOTE HUNTER Office Visit [facility] Heart [facility] [address] [facility] [address] [place] [address] Junior Chavira MD [address] [place], [place] [address] 07/30/2024 7:30 AM COYOTE HUNTER Appointment M [facility] Specialty Care [address] [facility] [address] [place] [address] Candy Trivedi MD [address] [place] [address] 08/07/2024 1:30 PM COYOTE HUNTER Virtual Visit [facility] Diabetes Education [address] 3rd [place] [phone] Stephie Mahoney MD 420 [facility] 101 [place] [address] Federica Foster, MENDEL 420 [place], [place] [address] 01/09/2025 8:00 AM CDT Lab [facility] [address] [place] [address] 01/16/2025 3:30 PM CDT Virtual Visit [facility] Endocrinology Clinic [address]rd [place] [address] Stephie Mahoney MD [address] 732[address] 06/05/2025 12:30 PM CDT Office Visit [facility] Endocrinology [address] [place] [address] Stephie Mahoney MD [address] 656275 documented as of this encounter Visit Diagnoses Not on filedocumented in this encounter Additional Health Concerns Infection Onset Date Last Indicated Resolved Time Rule Out COVID-19 03/10/2022 03/10/2022 03/10/2022 1:37 AM CDT COVID-19 03/10/2022 03/10/2022 03/31/2022 11:3 9 PM CDT documented as of this encounter Care Teams Health Education Director Relationship Specialty Start [place] [address] [address] [address] PCP - General Family Practice 11/21/16 [place] [address] [address] [address] Assigned PCP 10/31/20 01/29/21 Matt Baez MD [address] [place] [address] Assigned Heart and Vascular Provider 06/11/20 06/23/22 [place] [address] [address] [address] Assigned PCP 11/02/16 10/30/20 [place] [address] [place] [address] Assigned PCP 01/30/21 Stephie Mahoney MD [address] 848285 Endocrinology, Diabetes, and Metabolism 04/22/21 Federica Foster RN [address] [place] [address] 085065 Facilities Maintenance Technician Diabetes Education 04/22/[address] [place] [address] [phone] Facilities Maintenance Technician Nutrition 04/22/21 Stephie Mahoney MD [address] [place] [address] 265675 Assigned Endocrinology Provider 05/08/21 Olga Garcia RN Specialty Darkroom Technician INTERNAL MEDICINE - ENDOCRINOLOGY, DIABETES & METABOLISM 09/29/22 Matt Baez MD [address] [place] [id number] Assigned Heart and Vascular Provider 12/23/22 05/04/23 Junior Chavira MD [address] [place] [id number] Cardiovascular Disease 05/29/24 documented as of this encounter
--- OUTSIDE RECORDS SUMMARY | 2024-07-02 08:25 | XMS_ITS | Encounter Summary ---
Author Organization [place] Address [address] [place], [place] [address]. [place] [address] Care Team Providers Care Mis Manager Name Role Phone Wilber Vidales MD Primary Care Provider + Wilber Vidales MD Unavailable [phone] Matt Baez MD Unavailable +[phone] Wilber Vidales MD Unavailable +[phone] Wilber Vidales MD Unavailable +[phone] Stephie Mahoney MD Unavailable +[phone] Federica Foster RN Unavailable +[phone] Unavailable [phone] Stephie Mahoney MD Unavailable +[phone] Olga Garcia RN Unavailable +[phone] Matt Baez MD Unavailable [phone] Junior Chavira MD Unavailable +[phone] Encounter Details Date Type Department Care Team (Late st Contact Info) Description 10/01/2019 [facility] [address] [facility] [address] [place] [address] Matt Baez MD [address] [facility] [address] [place] [address] Social History Tobacco Use Types Packs/Day Years [...] and Family Once a week 03/17/2019 Attends Spiritism Services More than 4 times per year [...] Answer Date Recorded PHQ-2 Score 0 08/27/2018 [facility] of Occupat ional Health - [...] AM CDT 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 JUNIOR MANUFACTURING ENGINEER Gender Identity Male 03/03/2019 9:24 PM CDT Sexual Orientation Straight 03/03/2019 9: 24 PM CDT documented as of this encounter Plan of Treatment Upcoming Encounters Date Type Department Care Team (Late st Contact Info) Description 07/11/2024 8:00 AM JUNIOR MANUFACTURING ENGINEER Office Visit [facility] [address] [facility] [address] [place] [address] Junior Chavira MD [address] [place], [place] [address] 07/30/2024 7:30 AM JUNIOR MANUFACTURING ENGINEER Appointment M [facility] Specialty Care [address] [facility] [address] [place] [address] Candy Trivedi MD [address] [place], [place] [address] 08/07/2024 1:30 PM JUNIOR MANUFACTURING ENGINEER Virtual Visit [facility] [place] [address] [facility] 3rd [place] [address] Stephie Mahoney MD 420 [facility] [address] [place], [place] 70[address] Federica Foster RN 420 [place], [place] 4086[address] 01/09/2025 8:00 AM CDT Lab [facility] [address] [place] [address] 01/16/2025 3:30 PM CDT Virtual Visit [facility] [address] 3rd [place] [address] Stephie Mahoney MD [address] [address] 06/05/2025 12:30 PM CDT Office Visit [facility] [address] [facility] 3rd [place] [address] Stephie Mahoney MD [address] 800485 documented as of this encounter Visit Diagnoses Not on filedocumented in this encounter Additional Health Concerns Infection Onset Date Last Indicated Resolved Time Rule Out COVID-19 03/10/2022 03/10/2022 03/10/2022 1:37 AM CDT COVID-19 03/10/2022 03/10/2022 03/31/2022 11:3 9 PM CDT documented as of this encounter Care Teams Mis Manager Relationship Specialty [place] [address] [address] [address] PCP - General Family Practice 11/21/16 [place] [address] [address] [address] Assigned PCP 10/31/20 01/29/21 Matt Baez MD [address] [place] [address] Assigned Heart and Vascular Provider 06/11/20 06/23/22 [place] [address] [address] [address] Assigned PCP 11/02/16 10/30/20 [place] [address] [place] [address] Assigned PCP 01/30/21 Stephie Mahoney MD [address] [place] [address] [phone] Endocrinology, Diabetes, and Metabolism 04/22/21 Federica Foster RN [address] [place] [address] [phone] Superintendent Electric Power Diabetes Education 04/22/[address] [place] [address] 082194 Superintendent Electric Power Nutrition 04/22/21 Stephie Mahoney MD [address] [place] [address] [phone] Assigned Endocrinology Provider 05/08/21 Olga Garcia RN Specialty Ccu Nurse INTERNAL MEDICINE - ENDOCRINOLOGY, DIABETES & METABOLISM 09/29/22 Matt Baez MD [address] [place] [address] Assigned Heart and Vascular Provider 12/23/22 05/04/23 Junior Chavira MD [address] [place] [address] Cardiovascular Disease 05/29/24 documented as of this encounter
--- OUTSIDE RECORDS SUMMARY | 2024-07-02 08:25 | XMS_ITS | Encounter Summary ---
Author Organization [place] Address [address] [place], [place] [address]. [place] [address] Care Team Providers Care Chromosomal Disorders Counselor Name Role Phone Wilber Vidales MD Primary Care Provider + Wilber Vidales MD Unavailable [phone] Matt Baez MD Unavailable [phone] Wilber Vidales MD Unavailable +[phone] Wilber Vidales MD Unavailable +[phone] Stephie Mahoney MD Unavailable +[phone] Federica Foster RN Unavailable +[phone] Unavailable [phone] Stephie Mahoney MD Unavailable +[phone] Olga Garcia RN Unavailable +[phone] Matt Baez MD Unavailable [phone] Junior Chavira MD Unavailable [phone] Encounter Details Date Type Department Care Team (Late st Contact Info) Description 10/29/2019 MyC Medical Advice [facility] [address] [facility], [address] [place] [address] [place] [address] [place] [address] Social History Tobacco Use Types Packs/Day Years [...] and Family Once a week 03/17/2019 Attends Gnosticism Services More than 4 times per year [...] Answer Date Recorded PHQ-2 Score 0 08/27/2018 [facility] of Occupat ional Health - Occupational [...] CDT 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 HEALTH OUTCOMES LIAISON Gender Identity Male 03/03/2019 9:24 PM CDT Sexual Orientation Straight 03/03/2019 9: 24 PM CDT documented as of this encounter Miscellaneous Notes * Telephone Encounter - Lauren Narayanan RN - 10/29/2019 8:58 AM CDT Please advise Pt was just seen yesterday Lauren Narayanan RN, BSN documented in this encounter Plan of Treatment Upcoming Encounters Date Type Department Care Team (Late st Contact Info) Description 07/11/2024 8:00 AM HEALTH OUTCOMES LIAISON Office Visit [facility] [place] [address] [facility] [address] [place] [address] Junior Chavira MD [address] [place], [place] [address] 07/30/2024 7:30 AM HEALTH OUTCOMES LIAISON Appointment [facility] Specialty Care [address] [facility] [address] [place] [address] Candy Trivedi MD [address] [place], [place] [address] 08/07/2024 1:30 PM HEALTH OUTCOMES LIAISON Virtual Visit [facility] Diabetes Education [place] [address] [facility] [address] 3rd [place] [phone] Stephie Mahoney MD 420 [facility] 101 [place] [address] Federica Foster, RN 420 [place] [address] 01/09/2025 8:00 AM CDT Lab [facility] [address] [place] [address] 01/16/2025 3:30 PM CDT Virtual Visit [facility] Endocrinology [address] [phone] Stephie Mahoney MD [address] [place] [address] 06/05/2025 12:30 PM CDT Office Visit [facility] Endocrinology [address] [phone] Stephie Mahoney MD [address] [place] [address] documented as of this encounter Visit Diagnoses Not on filedocumented in this encounter Additional Health Concerns Infection Onset Date Last Indicated Resolved Time Rule Out COVID-19 03/10/2022 03/10/2022 03/10/2022 1:37 AM CDT COVID-19 03/10/2022 03/10/2022 03/31/2022 11:3 9 PM CDT documented as of this encounter Care Teams Chromosomal Disorders Counselor Relationship Specialty [place] [address] [place] [address] PCP - General Family Practice 11/21/16 [place] [address] [place] [address] Assigned PCP 10/31/20 01/29/21 Matt Baez MD [address] [place] [address] Assigned Heart and Vascular Provider 06/11/20 06/23/22 [place] [address] [facility] [place] 8897868 Assigned PCP 11/02/16 10/30/20 [place] [address] [facility] [place] 5596668 Assigned PCP 01/30/21 Stephie Mahoney MD [address] [place] [address] 600655 Endocrinology, Diabetes, and Metabolism 04/22/21 Federica Foster, RN [address] [place] [address] [phone] Hospice Entrance Attendant Diabetes Education 04/22/[address] [place] [address] Hospice Entrance Attendant Nutrition 04/22/21 Stephie Mahoney MD [address] [place] [address] Assigned Endocrinology Provider 05/08/21 Olga Garcia, RN Specialty Machine Sorter INTERNAL MEDICINE - ENDOCRINOLOGY, DIABETES & METABOLISM 09/29/22 Matt Baez MD [address] [place] [address] Assigned Heart and Vascular Provider 12/23/22 05/04/23 Junior Chavira MD [address] [place] [address] Cardiovascular Disease 05/29/24 documented as of this encounter
--- OUTSIDE RECORDS SUMMARY | 2024-07-02 08:25 | XMS_ITS | Encounter Summary ---
Author Organization [place] Address [address] [place] [address]. [place] [address] Care Team Providers Care Typing Pool Supervisor Name Role Phone Wilber Vidales MD Primary Care Provider + Wilber Vidales MD Unavailable [phone] Matt Baez MD Unavailable [phone] Wilber Vidales MD Unavailable [phone] Wilber Vidales MD Unavailable +[phone] Stephie Mahoney MD Unavailable +[phone] Federica Foster RN Unavailable +[phone] Unavailable [phone] Stephie Mahoney MD Unavailable +[phone] Olga Garcia RN Unavailable +[phone] Matt Baez MD Unavailable [phone] Junior Chavira MD Unavailable [phone] Encounter Details Date Type Department Care Team (Late st Contact Info) Description 07/02/2019 MyC Medical Advice [facility] [address] [place] [address] Tiarra Poole, RN Social History Tobacco Use [...] and Family Once a week 03/17/2019 Attends [employer] Services More than 4 times per year [...] Date Recorded PHQ-2 Score 0 08/27/2018 [facility] of Occupat ional Health - Occupational Stress [...] AM CDT 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 SLITTING AND SHIPPING SUPERVISOR Gender Identity Male 03/03/2019 9:24 PM CDT Sexual Orientation Straight 03/03/2019 9: 24 PM CDT documented as of this encounter Plan of Treatment Upcoming Encounters Date Type Department Care Team (Late st Contact Info) Description 07/11/2024 8:00 AM SLITTING AND SHIPPING SUPERVISOR Office [facility] [address] [facility] [address] [place] [address] Junior Chavira MD [address] [place], [place] [address] 07/30/2024 7:30 AM SLITTING AND SHIPPING SUPERVISOR Appointment [facility] Specialty Care [address] [facility] [address] [place] [address] Candy Trivedi MD [address] [place], [place] [address] 08/07/2024 1:30 PM SLITTING AND SHIPPING SUPERVISOR Virtual Visit [facility] Diabetes Education [address] [address] Stephie Mahoney MD 420 [facility] 101 [place], [place] 281845 Federica Foster RN 420 [place], [place] [address]285 01/09/2025 8:00 AM CDT Lab [facility] [address] [place] [address] 01/16/2025 3:30 PM CDT Virtual Visit [facility] [address] [phone] Stephie Mahoney MD [address] 951165 06/05/2025 12:30 PM CDT Office Visit [facility] [place] 838389 [facility] [address] 3rd [place] [address] Stephie Mahoney MD [address] 734095 documented as of this encounter Visit Diagnoses Not on filedocumented in this encounter Additional Health Concerns Infection Onset Date Last Indicated Resolved Time Rule Out COVID-19 03/10/2022 03/10/2022 03/10/2022 1:37 AM CDT COVID-19 03/10/2022 03/10/2022 03/31/2022 11:3 9 PM CDT documented as of this encounter Care Teams Typing Pool Supervisor Relationship Specialty [place] [address] [address] [address] PCP - General Family Practice 11/21/16 [place] [address] [address] [address] Assigned PCP 10/31/20 01/29/21 Matt Baez MD [address] [place] [address] Assigned Heart and Vascular Provider 06/11/20 06/23/22 [place] [address] [address] [address] Assigned PCP 11/02/16 10/30/20 [place] [address] [place] [address] Assigned PCP 01/30/21 Stephie Mahoney MD [address] [place] [address] Endocrinology, Diabetes, and Metabolism 04/22/21 Federica Foster, RN [address] [place] [address] Sub Acute Care Nurse Diabetes Education 04/22/[address] [place] [address] Sub Acute Care Nurse Nutrition 04/22/21 Stephie Mahoney MD [address] [place] [address] Assigned Endocrinology Provider 05/08/21 Olga Garcia RN Specialty Manager Database Administration INTERNAL MEDICINE - ENDOCRINOLOGY, DIABETES & METABOLISM 09/29/22 Matt Baez MD [address] [place] [address] Assigned Heart and Vascular Provider 12/23/22 05/04/23 Junior Chavira MD [address] [place] [id number] Cardiovascular Disease 05/29/24 documented as of this encounter
--- OUTSIDE RECORDS SUMMARY | 2024-07-02 08:25 | XMS_ITS | Encounter Summary ---
Author Organization [place] Address [address] [place], [place] [address]. [place] [address] Care Team Providers Care Dioramist Name Role Phone Wilber Vidales MD Primary Care Provider + Wilber Vidales MD Unavailable [phone] Matt Baez MD Unavailable [phone] Wilber Vidales MD Unavailable [phone] Wilber Vidales MD Unavailable [phone] Stephie Mahoney MD Unavailable +[phone] Federica Foster RN Unavailable +[phone] Unavailable [phone] Stephie Mahoney MD Unavailable +[phone] Olga Garcia RN Unavailable +[phone] Matt Baez MD Unavailable +[phone] Junior Chavira MD Unavailable [phone] Encounter Details Date Type Department Care Team (Late st Contact Info) Description 01/05/2020 MyC Medical Advice [facility] Heart Care [address] [facility] [address] [place] [address] Arielle Adams, RN Social History Tobacco Use Types Packs/Day [...] and Family Once a week 03/17/2019 Attends Catholic Services More than 4 times per year [...] Answer Date Recorded PHQ-2 Score 0 08/27/2018 [facility] [place] of Occupat ional Health - Occupational Stress [...] AM CDT 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 PHP WEBSITE DEVELOPER Gender Identity Male 03/03/2019 9:24 PM CDT Sexual Orientation Straight 03/03/2019 9: 24 PM CDT COVID-19 Exposure Response Date Recorded In the last month, have you been in contact with someone who was confirmed or suspected to have Coronavirus / COVID-19? No / Unsure 01/02/2020 2:42 PM CDT documented as of this encounter Plan of Treatment Upcoming Encounters Date Type Department Care Team (Late st Contact Info) Description 07/11/2024 8:00 AM PHP WEBSITE DEVELOPER Office [facility] [address] [place] [address] [address] [place] [address] Junior Chavira MD [address] [place], [place] [address] 07/30/2024 7:30 AM PHP WEBSITE DEVELOPER Appointment [facility] Specialty Care [address] [facility] [address] [place] [phone] Candy Trivedi MD [address] [place], [place] [address] 08/07/2024 1:30 PM PHP WEBSITE DEVELOPER Virtual Visit [facility] Diabetes Education [place] 909 [facility] [address] 3rd [place] [phone] Stephie Mahoney MD 420 [facility] 101 [place], [place] 79[address] Federica Foster RN 420 [place] [address] 01/09/2025 8:00 AM CDT Lab [facility] Laboratory [address] [place] [address] 01/16/2025 3:30 PM CDT Virtual Visit [facility] Endocrinology [address] 3rd [place] [address] Stephie Mahoney MD [address] 792835 06/05/2025 12:30 PM CDT Office [facility] Endocrinology [address] [phone] Stephie Mahoney MD [address] 279655 documented as of this encounter Visit Diagnoses Not on filedocumented in this encounter Additional Health Concerns Infection Onset Date Last Indicated Resolved Time Rule Out COVID-19 03/10/2022 03/10/2022 03/10/2022 1:37 AM CDT COVID-19 03/10/2022 03/10/2022 03/31/2022 11:3 9 PM CDT documented as of this encounter Care Teams Dioramist Relationship Specialty [place] [address] [place] [address] PCP - General Family Practice 11/21/16 [place] [address] [facility] [address] Assigned PCP 10/31/20 01/29/21 Matt Baez MD [address] [facility] [address] [place] [address] Assigned Heart and Vascular Provider 06/11/20 06/23/22 [place] [address] [place] [address] Assigned PCP 11/02/16 10/30/20 [place] [address] [place] [address] Assigned PCP 01/30/21 Stephie Mahoney MD [address] [place] [address] 517775 Endocrinology, Diabetes, and Metabolism 04/22/21 Federica Foster, RN [address] [place] [address] [phone] Artificial Snow Making Machine Operator Diabetes Education 04/22/[address] [place] [address] 604294 Artificial Snow Making Machine Operator Nutrition 04/22/21 Stephie Mahoney MD [address] [place] [address] 807765 Assigned Endocrinology Provider 05/08/21 Olga Garcia RN Specialty Nursing Instructor INTERNAL MEDICINE - ENDOCRINOLOGY, DIABETES & METABOLISM 09/29/22 Matt Baez MD [address] [place] [id number] Assigned Heart and Vascular Provider 12/23/22 05/04/23 Junior Chavira MD [address] [place] [id number] Cardiovascular Disease 05/29/24 documented as of this encounter
--- OUTSIDE RECORDS SUMMARY | 2024-07-02 08:25 | XMS_ITS | Encounter Summary ---
Author Organization [place] Address [address] [place] [address]. [place] [address] Care Team Providers Care Hook And Eye Attacher Name Role Phone Wilber Vidales MD Primary Care Provider + Wilber Vidales MD Unavailable [phone] Matt Baez MD Unavailable [phone] Wilber Vidales MD Unavailable +[phone] Wilber Vidales MD Unavailable [phone] Stephie Mahoney MD Unavailable +[phone] Federica Foster RN Unavailable +[phone] Unavailable [phone] Stephie Mahoney MD Unavailable +[phone] Olga Garcia RN Unavailable +[phone] Matt Baez MD Unavailable +[phone] Junior Chavira MD Unavailable [phone] Encounter Details Date Type Department Care Team (Late st Contact Info) Description 11/28/2019 MyC Medical Advice [facility] [address] [facility], [address] [place] [address] Roma Mcintyre, DELIVER DRIVER Social History Tobacco Use Types Packs/Day Years [...] Answer Date Recorded PHQ-2 Score 0 08/27/2018 [facility] [place] of Occupat ional Health - Occupational Stress [...] AM CDT 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 STONE PLANER Gender Identity Male 03/03/2019 9:24 PM CDT [...] st Contact Info) Description 07/11/2024 8:00 AM STONE PLANER Office Visit [facility] [address] [place] [address] [address] [place] [address] Junior Chavira MD [address] [place], [place] [address] 07/30/2024 7:30 AM STONE PLANER Appointment [facility] Specialty Care [address] [facility] [address] [place] [address] Candy Trivedi MD [address] [place] [address] 08/07/2024 1:30 PM STONE PLANER Virtual Visit [facility] Diabetes Education [place] 909 [facility] 3rd [place] [phone] Stephie Mahoney MD 420 [facility] 101 [place], [place] [address] Federica Foster RN 420 [place] [address] 01/09/2025 8:00 AM CDT Lab [facility] Laboratory [address] [place] [address] 01/16/2025 3:30 PM CDT Virtual Visit [facility] Endocrinology Clinic [address]rd [place] [address] Stephie Mahoney MD [address] 042335 06/05/2025 12:30 PM CDT Office Visit [facility] Endocrinology [address] [place] [address] Stephie Mahoney MD [address] 675025 documented as of this encounter Visit Diagnoses Not on filedocumented in this encounter Additional Health Concerns Infection Onset Date Last Indicated Resolved Time Rule Out COVID-19 03/10/2022 03/10/2022 03/10/2022 1:37 AM CDT COVID-19 03/10/2022 03/10/2022 03/31/2022 11:3 9 PM CDT documented as of this encounter Care Teams Hook And Eye Attacher Relationship Specialty [place] [address] [facility] [address] PCP - General Family Practice 11/21/16 [place] [address] [place] [address] Assigned PCP 10/31/20 01/29/21 Matt Baez MD [address] [facility] [address] [place] [address] Assigned Heart and Vascular Provider 06/11/20 06/23/22 [place] [address] [place] [address] Assigned PCP 11/02/16 10/30/20 [place] [address] [place] [address] Assigned PCP 01/30/21 Stephie Mahoney MD [address] [place] [address] [phone] Endocrinology, Diabetes, and Metabolism 04/22/21 Federica Foster RN [address] [place] [address] 429205 Laborer Shipyard Diabetes Education 04/22/[address] [place] [address] 204394 [employer] Nutrition 04/22/21 Stephie Mahoney MD [address] [place] [address] 300185 Assigned Endocrinology Provider 05/08/21 Olga Garcia RN Specialty Materials Planner/Production Planner INTERNAL MEDICINE - ENDOCRINOLOGY, DIABETES & METABOLISM 09/29/22 Matt Baez MD [address] [place] [id number] Assigned Heart and Vascular Provider 12/23/22 05/04/23 Junior Chavira MD [address] [place] 438605 Cardiovascular Disease 05/29/24 documented as of this encounter
--- OUTSIDE RECORDS SUMMARY | 2024-07-02 08:25 | XMS_ITS | Encounter Summary ---
Author Organization [facility] Address [address] [place] [address]. [place] [address] Care Team Providers Care Surveillance Sensor Operator Name Role Phone Wilber Vidales MD Primary Care Provider + Wilber Vidales MD Unavailable [phone] Matt Baez MD Unavailable [phone] Wilber Vidales MD Unavailable +[phone] Wilber Vidales MD Unavailable +[phone] Stephie Mahoney MD Unavailable +[phone] Federica Foster RN Unavailable +[phone] Unavailable [phone] Stephie Mahoney MD Unavailable +[phone] Olga Garcia RN Unavailable +[phone] Matt Baez MD Unavailable [phone] Junior Chavira MD Unavailable [phone] Encounter Details Date Type Department Care Team (Late st Contact Info) Description 08/19/2019 [facility] Heart [address] [place] [address] Ivonne Hussein, GELATIN PLANT SUPERVISOR MECHANICAL ARTIST [address] [place] [address] Social History Tobacco Use Types Packs/Day Years [...] and Family Once a week 03/17/2019 Attends [employer] Services More than 4 times per year [...] Answer Date Recorded PHQ-2 Score 0 08/27/2018 [facility] of Occupat ional Health - [...] AM CDT 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 OF 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 Gender Identity Male 03/03/2019 9:24 PM CDT Sexual Orientation Straight 03/03/2019 9: 24 PM CDT documented as of this encounter Plan of Treatment Upcoming Encounters Date Type Department Care Team (Late st Contact Info) Description 07/11/2024 8:00 AM 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 OF SCHOOLS Office Visit [facility] Heart [facility] [address] [place] [address] Junior Chavira MD [address] [place], [place] [address] 07/30/2024 7:30 AM 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 OF SCHOOLS Appointment M [facility] Specialty Care [address] [place] [address] Candy Trivedi MD [address] [place], [place] [address] 08/07/2024 1:30 PM 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 OF SCHOOLS Virtual Visit [facility] Diabetes Education [place] [address] [facility] 3rd [place] [phone] Stephie Mahoney MD 420 [facility] 101 [place], [place] [address] Federica Foster RN 420 [place], [place] [address] 01/09/2025 8:00 AM CDT Lab [facility] Laboratory [address] [place] [address] 01/16/2025 3:30 PM CDT Virtual Visit [facility] Endocrinology Clinic [address]rd [place] [address] Stephie Mahoney MD [address] [address] 06/05/2025 12:30 PM CDT Office Visit [facility] Endocrinology [facility] [address] [facility] [address]rd [place] [address] Stephie Mahoney MD [address] 008755 documented as of this encounter Visit Diagnoses Not on filedocumented in this encounter Additional Health Concerns Infection Onset Date Last Indicated Resolved Time Rule Out COVID-19 03/10/2022 03/10/2022 03/10/2022 1:37 AM CDT COVID-19 03/10/2022 03/10/2022 03/31/2022 11:3 9 PM CDT documented as of this encounter Care Teams Surveillance Sensor Operator Relationship Specialty [place] [address] [address] [address] PCP - General Family Practice 11/21/16 [place] [address] [address] [address] Assigned PCP 10/31/20 01/29/21 Matt Baez MD [address] [place] [address] Assigned Heart and Vascular Provider 06/11/20 06/23/22 [place] [address] [address] [address] Assigned PCP 11/02/16 10/30/20 [place] [address] [place] [address] Assigned PCP 01/30/21 Stephie Mahoney MD [address] [place] [address] [id number] Endocrinology, Diabetes, and Metabolism 04/22/21 Federica Foster RN [address] [place] [address] 586365 Screen Operator Diabetes Education 04/22/[address] [place] [address] [phone] Screen Operator Nutrition 04/22/21 Stephie Mahoney MD [address] [place] [address] [phone] Assigned Endocrinology Provider 05/08/21 Olga Garcia RN Specialty Driver Material Handler INTERNAL MEDICINE - ENDOCRINOLOGY, DIABETES & METABOLISM 09/29/22 Matt Baez MD [address] [place] [id number] Assigned Heart and Vascular Provider 12/23/22 05/04/23 Junior Chavira MD [address] [place] 238275 Cardiovascular Disease 05/29/24 documented as of this encounter
--- OUTSIDE RECORDS SUMMARY | 2024-07-02 08:26 | XMS_ITS | Encounter Summary ---
Author Organization [facility] Address [address] [place], [place] [address]. [place] [address] Care Team Providers Care Real Estate Account Executive Name Role Phone Wilber Vidales MD Primary Care Provider + Wilber Vidales MD Unavailable [phone] Matt Baez MD Unavailable [phone] Wilber Vidales MD Unavailable [phone] Wilber Vidales MD Unavailable [phone] Stephie Mahoney MD Unavailable [phone] Federica Foster RN Unavailable [phone] Unavailable [phone] Stephie Mahoney MD Unavailable [phone] Olga Garcia RN Unavailable [phone] Matt Baez MD Unavailable [phone] Junior Chavira MD Unavailable [phone] Encounter Details Date Type Department Care Team (Late st Contact Info) Description 05/01/[address] [facility] Heart [facility] [address] [place] [address] Nehemiah Plummer MD [address] [facility] [address] [place] [address] Social History Tobacco Use Types Packs/Day Years [...] and Family Once a week 03/17/2019 Attends Yaz[employer] Services More than 4 times per year [...] Answer Date Recorded PHQ-2 Score 0 08/27/2018 [facility] of Occupat ional Health - Occupational [...] AM CDT 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 GARMENT PATTERNMAKER Gender Identity Male 03/03/2019 9:24 PM CDT Sexual Orientation Straight 03/03/2019 9: 24 PM CDT documented as of this encounter Plan of Treatment Upcoming Encounters Date Type Department Care Team (Late st Contact Info) Description 07/11/2024 8:00 AM GARMENT PATTERNMAKER Office Visit [facility] Heart [facility] [address] [place] [address] Junior Chavira MD [address] [place], [place] [address] 07/30/2024 7:30 AM GARMENT PATTERNMAKER Appointment M [facility] Specialty Care [address] [place] [address] Candy Trivedi MD [address] [place], [place] [address] 08/07/2024 1:30 PM GARMENT PATTERNMAKER Virtual Visit [facility] Diabetes Education [place] 909 [facility] 3rd [place] [address] Stephie Mahoney MD 420 [facility] 101 [place], [place] 8[address] Federica Foster RN 420 [place], [place] [address] 01/09/2025 8:00 AM CDT Lab [facility] [address] [place] [address] 01/16/2025 3:30 PM CDT Virtual Visit [facility] Endocrinology Clinic [address]rd [place] [address] Stephie Mahoney MD [address] [address] 06/05/2025 12:30 PM CDT Office Visit [facility] Endocrinology [facility] 909 [facility] 3rd [place] [address] Stephie Mahoney MD [address] 722825 documented as of this encounter Visit Diagnoses Not on filedocumented in this encounter Additional Health Concerns Infection Onset Date Last Indicated Resolved Time Rule Out COVID-19 03/10/2022 03/10/2022 03/10/2022 1:37 AM CDT COVID-19 03/10/2022 03/10/2022 03/31/2022 11:3 9 PM CDT documented as of this encounter Care Teams Real Estate Account Executive Relationship Specialty [place] [address] [address] [address] PCP - General Family Practice 11/21/16 [place] [address] [address] [address] Assigned PCP 10/31/20 01/29/21 Matt Baez MD [address] [place] [address] Assigned Heart and Vascular Provider 06/11/20 06/23/22 [place] [address] [address] [address] Assigned PCP 11/02/16 10/30/20 [place] [address] [place] [address] Assigned PCP 01/30/21 Stephie Mahoney MD [address] [place] [address] 244125 Endocrinology, Diabetes, and Metabolism 04/22/21 Federica Foster RN [address] [place] [address] [phone] Senior Research Associate Diabetes Education 04/22/[address] [place] [address] 389174 Senior Research Associate Nutrition 04/22/21 Stephie Mahoney MD [address] [place] [address] [phone] Assigned Endocrinology Provider 05/08/21 Olga Garcia RN Specialty Safety Representative INTERNAL MEDICINE - ENDOCRINOLOGY, DIABETES & METABOLISM 09/29/22 Matt Baez MD [address] [place] [address] Assigned Heart and Vascular Provider 12/23/22 05/04/23 Junior Chavira MD [address] [place] [address] Cardiovascular Disease 05/29/24 documented as of this encounter
--- OUTSIDE RECORDS SUMMARY | 2024-07-02 08:26 | XMS_ITS | Encounter Summary ---
Author Organization [facility] Address [address] [address] Care Team Providers Care Printing Worker Supervisor Name Role Phone Wilber Vidales MD Primary Care Provider [phone] Reason for Visit * Reason Comments Eye Exam Diabetes Encounter Details Date Type Department Care Team (Late st Contact Info) Description 06/27/2024 2:40 PM DRESS DRAPER Office Visit [facility] [address] [address] Carla Vasquez, OD [address] [place], [place] 36[address] Type 1 diabetes mellitus without complication (HRC) (Primary Dx); Examination of eyes and vision; Regular astigmatism of both eyes; Status post LASIK surgery; Age-related nuclear cataract of both eyes Social History Tobacco Use Types Packs/Day Years Used Date Smoking Tobacco: Never Assessed Sex and Gender Information Value Date Recorded Sex Assigned at Not on file Gender Identity Not on file Sexual Orientation Not on file documented as of this encounter Progress Notes * Carla Vasquez, OD - 06/27/2024 2:40 PM CST General medical assessment: Patient is alert and feeling well. Medical history, current medications, and allergies reviewed. Assessment: 1. Type 1 diabetes mellitus without complication (HRC) 2. Examination of eyes and vision 3. Regular astigmatism of both eyes 4. Status post LASIK surgery 5. Age-related nuclear cataract of both eyes Plan: 1. No diabetic retinopathy both eyes. Patient educated on taking medications as directed, good blood sugar control, healthy diet, routine exercise, and regular follow-ups with PCP. Monitor annually with dilated eye exam. 2-4. Glasses Rx given for update in lenses if desired. Computer Rx also given per patient's request. 5. Monitor. Surgery consult not recommended at this time. UV protection advised. RTC 1 year or sooner with any changes. S DRAPER documented in this encounter Plan of Treatment Not on file documented as of this encounter Visit Diagnoses Diagnosis Type 1 diabetes mellitus without complication (HRC)- Primary Type I (juvenile type) diabetes mellitus without mention of complication, not stated as uncontrolled Examination of eyes and vision Regular astigmatism of both eyes Regular astigmatism Status post LASIK surgery Other states following surgery of eye and adnexa Age-related nuclear cataract of both eyes Senile nuclear sclerosis documented in this encounter Care Teams Printing Worker Supervisor Relationship Specialty [place] [address] [place] [address] PCP - General Family Practice 04/26/21 documented as of this encounter
--- OUTSIDE RECORDS SUMMARY | 2024-07-02 08:26 | XMS_ITS | Encounter Summary ---
Author Organization [facility] Address [address] [place], [place] [address]. [place] [address] Care Team Providers Care Mechanical Reliability Engineer Name Role Phone Wilber Vidales MD Primary Care Provider + Wilber Vidales MD Unavailable [phone] Matt Baez MD Unavailable [phone] Wilber Vidales MD Unavailable [phone] Wilber Vidales MD Unavailable [phone] Stephie Mahoney MD Unavailable [phone] Federica Foster RN Unavailable [phone] Unavailable [phone] Stephie Mahoney MD Unavailable [phone] Olga Garcia RN Unavailable [phone] Matt Baez MD Unavailable [phone] Junior Chavira MD Unavailable [phone] Encounter Details Date Type Department Care Team (Late st Contact Info) Description 05/11/2019 [facility] [address] [facility] [address] [place] [address] Nehemiah Plummer MD [address] [facility] [address] [place] [address] Social History Tobacco Use Types Packs/Day Years [...] AM CDT 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 SLIP SHEETER Gender Identity Male 03/03/2019 9:24 PM CDT Sexual Orientation Straight 03/03/2019 9: 24 PM CDT documented as of this encounter Plan of Treatment Upcoming Encounters Date Type Department Care Team (Late st Contact Info) Description 07/11/2024 8:00 AM SLIP SHEETER Office Visit [facility] [address] [facility] [address] [place] [address] Junior Chavira MD [address] [place], [place] [address] 07/30/2024 7:30 AM SLIP SHEETER Appointment M [facility] Specialty Care [address] [place] [address] Candy Trivedi MD [address] [place], [place] [address] 08/07/2024 1:30 PM SLIP SHEETER Virtual Visit [facility] Diabetes Education [place] 909 [facility] 3rd [place] [address] Stephie Mahoney MD 420 [facility] 101 [place], [place] [address] Federica Foster RN 420 [place], [place] [address] 01/09/2025 8:00 AM CDT Lab [facility] Laboratory [address] [place] [address] 01/16/2025 3:30 PM CDT Virtual Visit [facility] Endocrinology Clinic [address]rd [place] [address] Stephie Mahoney MD [address] [address] 06/05/2025 12:30 PM CDT Office Visit [facility] Endocrinology [facility] 909 [facility] 3rd [place] [address] Stephie Mahoney MD [address] 655[address] documented as of this encounter Visit Diagnoses Not on filedocumented in this encounter Additional Health Concerns Infection Onset Date Last Indicated Resolved Time Rule Out COVID-19 03/10/2022 03/10/2022 03/10/2022 1:37 AM CDT COVID-19 03/10/2022 03/10/2022 03/31/2022 11:3 9 PM CDT documented as of this encounter Care Teams Mechanical Reliability Engineer Relationship Specialty [place] [address] [address] [address] PCP - General Family Practice 11/21/16 [place] [address] [address] [address] Assigned PCP 10/31/20 01/29/21 Matt Baez MD [address] [place] [address] Assigned Heart and Vascular Provider 06/11/20 06/23/22 [place] [address] [address] [address] Assigned PCP 11/02/16 10/30/20 [place] [address] [place] [address] Assigned PCP 01/30/21 Stephie Mahoney MD [address] [place] [address] 089635 Endocrinology, Diabetes, and Metabolism 04/22/21 Federica Foster RN [address] [place] [address] [phone] Inflated Ball Molder Diabetes Education 04/22/[address] [place] [address] [phone] Inflated Ball Molder Nutrition 04/22/21 Stephie Mahoney MD [address] [place] [address] [phone] Assigned Endocrinology Provider 05/08/21 Olga Garcia RN Specialty Lay Brother INTERNAL MEDICINE - ENDOCRINOLOGY, DIABETES & METABOLISM 09/29/22 Matt Baez MD [address] [place] [address] Assigned Heart and Vascular Provider 12/23/22 05/04/23 Junior Chavira MD [address] [place] [address] Cardiovascular Disease 05/29/24 documented as of this encounter
--- OUTSIDE RECORDS SUMMARY | 2024-07-02 08:26 | XMS_ITS | Encounter Summary ---
Author Organization [facility] Address [address] [place], [place] [address]. [place] [address] Care Team Providers Care Dock Superintendent Name Role Phone Wilber Vidales MD Primary Care Provider + Wilber Vidales MD Unavailable [phone] Matt Baez MD Unavailable [phone] Wilber Vidales MD Unavailable [phone] Wilber Vidales MD Unavailable [phone] Stephie Mahoney MD Unavailable [phone] Federica Foster RN Unavailable [phone] Unavailable [phone] Stephie Mahoney MD Unavailable [phone] Olga Garcia RN Unavailable [phone] Matt Baez MD Unavailable [phone] Junior Chavira MD Unavailable [phone] Encounter Details Date Type Department Care Team (Late st Contact Info) Description 06/24/2019 [facility] Medical Advice [facility] Cardiothoracic [address] [address] Ej Haines MD 420 [facility] 207 [place] [address] Social History Tobacco Use Types [...] and Family Once a week 03/17/2019 Attends [employer] Services More than 4 times per year [...] Answer Date Recorded PHQ-2 Score 0 08/27/2018 [facility] of Occupat ional [...] AM CDT 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 WINE BLENDER Gender Identity Male 03/03/2019 9:24 PM CDT Sexual Orientation Straight 03/03/2019 9: 24 PM CDT documented as of this encounter Plan of Treatment Upcoming Encounters Date Type Department Care Team (Late st Contact Info) Description 07/11/2024 8:00 AM WINE BLENDER Office Visit [facility] Heart [facility] [address] [facility] [address] [place] [address] Junior Chavira MD [address] [place], [place] [address] 07/30/2024 7:30 AM WINE BLENDER Appointment M [facility] Specialty Care [address] [facility] [address] [place] [address] Candy Trivedi MD [address] [place] [address] 08/07/2024 1:30 PM WINE BLENDER Virtual Visit [facility] Diabetes Education [address] 3rd [place] [phone] Stephie Mahoney MD 420 [facility] 101 [place] [address] Federica Foster, MENDEL 420 [place], [place] [address] 01/09/2025 8:00 AM CDT Lab [facility] Laboratory [address] [place] [address] 01/16/2025 3:30 PM CDT Virtual Visit [facility] Endocrinology Clinic [address]rd [place] [address] Stephie Mahoney MD [address] 043615 06/05/2025 12:30 PM CDT Office Visit [facility] Endocrinology [address] [place] [address] Stephie Mahoney MD [address] 765785 documented as of this encounter Visit Diagnoses Not on filedocumented in this encounter Additional Health Concerns Infection Onset Date Last Indicated Resolved Time Rule Out COVID-19 03/10/2022 03/10/2022 03/10/2022 1:37 AM CDT COVID-19 03/10/2022 03/10/2022 03/31/2022 11:3 9 PM CDT documented as of this encounter Care Teams Dock Superintendent Relationship Specialty [place] [address] [address] [address] PCP - General Family Practice 11/21/16 [place] [address] [address] [address] Assigned PCP 10/31/20 01/29/21 Matt Baez MD [address] [place] [address] Assigned Heart and Vascular Provider 06/11/20 06/23/22 [place] [address] [address] [address] Assigned PCP 11/02/16 10/30/20 [place] [address] [place] [address] Assigned PCP 01/30/21 Stephie Mahoney MD [address] 054825 Endocrinology, Diabetes, and Metabolism 04/22/21 Federica Foster RN [address] [place] [address] [phone] Roll Cleaner Diabetes Education 04/22/[address] [place] [address] [phone] Roll Cleaner Nutrition 04/22/21 Stephie Mahoney MD [address] [place] [address] [phone] Assigned Endocrinology Provider 05/08/21 Olga Garcia RN Specialty Manager Of Internal Audit INTERNAL MEDICINE - ENDOCRINOLOGY, DIABETES & METABOLISM 09/29/22 Matt Baez MD [address] [place] 630845 Assigned Heart and Vascular Provider 12/23/22 05/04/23 Junior Chavira MD [address] [place] 329045 Cardiovascular Disease 05/29/24 documented as of this encounter
--- OUTSIDE RECORDS SUMMARY | 2024-07-02 08:26 | XMS_ITS | Encounter Summary ---
Author Organization [place] Address [address] [place], [place] [address] [address] Care Team Providers Care Quality Inspector Name Role Phone Wilber Vidales MD Primary Care Provider + Wilber Vidales MD Unavailable +[phone] Matt Baez MD Unavailable +[phone] Wilber Vidales MD Unavailable +[phone] Wilber Vidales MD Unavailable +[phone] Stephie Mahoney MD Unavailable +[phone] Federica Foster RN Unavailable +[phone] Unavailable +[phone] Stephie Mahoney MD Unavailable +[phone] Olga Garcia RN Unavailable +[phone] Matt Baez MD Unavailable +[phone] Junior Chavira MD Unavailable +[phone] Encounter Details Date Type Department Care Team (Late st Contact Info) Description 06/26/2019 [facility] Heart [facility] 6405 [facility] [address] [place] [address] Juan Wu MD 0288 [facility] [address] [place] [address] Social History Tobacco Use Types Packs/Day Years [...] Answer Date Recorded PHQ-2 Score 0 08/27/2018 [facility] of Occupat ional Health - [...] AM CDT 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 FASHION DIRECTOR Gender Identity Male 03/03/2019 9:24 PM CDT Sexual Orientation Straight 03/03/2019 9: 24 PM CDT documented as of this encounter Plan of Treatment Upcoming Encounters Date Type Department Care Team (Late st Contact Info) Description 07/11/2024 8:00 AM FASHION DIRECTOR Office Visit [facility] Heart [facility] [address] [facility] [address] [place] [address] Junior Chavira MD [address] [place], [place] [address] 07/30/2024 7:30 AM FASHION DIRECTOR Appointment M [facility] [address] [facility] [address] [place] [address] Candy Trivedi MD [address] [place], [place] [address] 08/07/2024 1:30 PM FASHION DIRECTOR Virtual Visit [facility] Diabetes Education [place] 909 [facility] 3rd [place] [phone] Stephie Mahoney MD 420 [facility] [address] [place], [place] 85[address] Federica Foster RN 420 [place], [place] [address] 01/09/2025 8:00 AM CDT Lab [facility] Laboratory [address] [place] [address] 01/16/2025 3:30 PM CDT Virtual Visit [facility] [address]rd [place] [address] Stephie Mahoney MD [address] [address] 06/05/2025 12:30 PM CDT Office Visit [facility] Endocrinology [address]rd [place] [address] Stephie Mahoney MD [address] 181325 documented as of this encounter Visit Diagnoses Not on filedocumented in this encounter Additional Health Concerns Infection Onset Date Last Indicated Resolved Time Rule Out COVID-19 03/10/2022 03/10/2022 03/10/2022 1:37 AM CDT COVID-19 03/10/2022 03/10/2022 03/31/2022 11:3 9 PM CDT documented as of this encounter Care Teams Quality Inspector Relationship Specialty [place] [address] [address] [address] PCP - General Family Practice 11/21/16 [place] [address] [address] [address] Assigned PCP 10/31/20 01/29/21 Matt Baez MD [address] [place] [address] Assigned Heart and Vascular Provider 06/11/20 06/23/22 [place] [address] [address] [address] Assigned PCP 11/02/16 10/30/20 [place] [address] [place] [address] Assigned PCP 01/30/21 Stephie Mahoney MD [address] [place] [address] Endocrinology, Diabetes, and Metabolism 04/22/21 Federica Foster RN [address] [place] [address] 297355 Network Management Specialist Diabetes Education 04/22/[address] [place] [address] 865794 Network Management Specialist Nutrition 04/22/21 Stephie Mahoney MD [address] [place] [address] [phone] Assigned Endocrinology Provider 05/08/21 Olga Garcia RN Specialty Motor Room Controller INTERNAL MEDICINE - ENDOCRINOLOGY, DIABETES & METABOLISM 09/29/22 Matt Baez MD [address] [place] [place] 26[address]25 Assigned Heart and Vascular Provider 12/23/22 05/04/23 Junior Chavira MD [address] [place] [id number] Cardiovascular Disease 05/29/24 documented as of this encounter
--- OUTSIDE RECORDS SUMMARY | 2024-07-02 08:26 | XMS_ITS | Encounter Summary ---
Author Organization [place] Address [address] [place], [place] [address]. [place] [address] Care Team Providers Care Time Buyer Name Role Phone Wilber Vidales MD Primary Care Provider + Wilber Vidales MD Unavailable +[phone] Mtat Baez MD Unavailable +[phone] Wilber Vidales MD Unavailable +[phone] Wilber Vidales MD Unavailable [phone] Stephie Mahoney MD Unavailable +[phone] Federica Foster RN Unavailable +[phone] Unavailable +[phone] Stephie Mahoney MD Unavailable +[phone] Olga Garcia RN Unavailable +[phone] Matt Baez MD Unavailable [phone] Junior Chavira MD Unavailable +[phone] Encounter Details Date Type Department Care Team (Late st Contact Info) Description 05/02/2019 [facility] Heart [facility] 6405 [facility] [address] [place] [address] Juan Wu MD 2358 [facility] [address] [place] [address] Social History Tobacco Use Types Packs/Day Years [...] and Family Once a week 03/17/2019 Attends Adventism Services More than 4 times per year [...] Answer Date Recorded PHQ-2 Score 0 08/27/2018 [facility] of Occupat ional Health - [...] CDT 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 DIRECTOR OF CONSERVATION Gender Identity Male 03/03/2019 9:24 PM CDT Sexual Orientation Straight 03/03/2019 9: 24 PM CDT documented as of this encounter Plan of Treatment Upcoming Encounters Date Type Department Care Team (Late st Contact Info) Description 07/11/2024 8:00 AM DIRECTOR OF CONSERVATION Office Visit M [facility] Heart [facility] [address] [facility] [address] [place] [phone] Junior Chavira MD [address] [place], [place] [address] 07/30/2024 7:30 AM DIRECTOR OF CONSERVATION Appointment M [facility] Specialty Care [address] [facility] [address] [place] [phone] Candy Trivedi MD [address] [place], [place] [address] 08/07/2024 1:30 PM DIRECTOR OF CONSERVATION Virtual Visit [facility] Diabetes Education [place] 909 [facility] 3rd [place] [phone] Stephie Mahoney MD 420 [facility] 101 [place], [place] 9[address] Federica Foster RN 420 [place], [place] 241015 01/09/2025 8:[address] [facility] Laboratory [address] [place] [address] 01/16/2025 3:30 PM CDT Virtual Visit [facility] [address]rd [place] [phone] Stephie Mahoney MD [address] [address] 06/05/2025 12:30 PM CDT Office Visit [facility] Endocrinology [address]rd [place] [phone] Stephie Mahoney MD [address] 27[address] documented as of this encounter Visit Diagnoses Not on filedocumented in this encounter Additional Health Concerns Infection Onset Date Last Indicated Resolved Time Rule Out COVID-19 03/10/2022 03/10/2022 03/10/2022 1:37 AM CDT COVID-19 03/10/2022 03/10/2022 03/31/2022 11:3 9 PM CDT documented as of this encounter Care Teams Time Buyer Relationship Specialty [place] [address] [address] [address] PCP - General Family Practice 11/21/16 [place] [address] [address] [address] Assigned PCP 10/31/20 01/29/21 Matt Baez MD [address] [place] [address] Assigned Heart and Vascular Provider 06/11/20 06/23/22 [place] [address] [address] [address] Assigned PCP 11/02/16 10/30/20 [place] [address] [place] [address] Assigned PCP 01/30/21 Stephie Mahoney MD [address] [place] [address] Endocrinology, Diabetes, and Metabolism 04/22/21 Federica Foster RN [address] [place] [address] [phone] Freight Sales Broker Diabetes Education 04/22/[address] [place] [address] 247124 Freight Sales Broker Nutrition 04/22/21 Stephie Mahoney MD [address] [place] [address] 779605 Assigned Endocrinology Provider 05/08/21 Olga Garcia RN Specialty Airdrop Systems Technician INTERNAL MEDICINE - ENDOCRINOLOGY, DIABETES & METABOLISM 09/29/22 Matt Baez MD [address] [place] [place] [address]995 Assigned Heart and Vascular Provider 12/23/22 05/04/23 Junior Chavira MD [address] [place] 909485 Cardiovascular Disease 05/29/24 documented as of this encounter
--- OUTSIDE RECORDS SUMMARY | 2024-07-02 08:26 | XMS_ITS | Encounter Summary ---
Author Organization [place] Address [address] [place], [place] [address]jeromy. [place] [address] Care Team Providers Care Boiler Tester Name Role Phone Wilber Vidales MD Primary Care Provider + Wilber Vidales MD Unavailable +[phone] Matt Baez MD Unavailable +[phone] Wilber Vidales MD Unavailable +[phone] Wilber Vidales MD Unavailable +[phone] Stephie Mahoney MD Unavailable +[phone] Federica Foster RN Unavailable +[phone] Unavailable [phone] Stephie Mahoney MD Unavailable +[phone] Olga Garcia RN Unavailable +[phone] Matt Baez MD Unavailable [phone] Junior Chavira MD Unavailable [phone] Encounter Details Date Type Department Care Team (Late st Contact Info) Description 06/23/2019 [facility] Medical Advice [facility] Cardiothoracic [address] [place] [address] Ej Haines MD 420 [facility] 207 [place] [address] Social History Tobacco Use Types [...] and Family Once a week 03/17/2019 Attends Yazdanism Services More than 4 times per year [...] Answer Date Recorded PHQ-2 Score 0 08/27/2018 [facility] of Occupat ional [...] AM CDT 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 UNLOADER OPERATOR Gender Identity Male 03/03/2019 9:24 PM CDT Sexual Orientation Straight 03/03/2019 9: 24 PM CDT documented as of this encounter Plan of Treatment Upcoming Encounters Date Type Department Care Team (Late st Contact Info) Description 07/11/2024 8:00 AM UNLOADER OPERATOR Office Visit [facility] Heart [facility] [address] [facility] [address] [place] [address] Junior Chavira MD [address] [place], [place] [address] 07/30/2024 7:30 AM UNLOADER OPERATOR Appointment M [facility] Specialty Care [address] [facility] [address] [place] [phone] Candy Trivedi MD [address] [place] [address] 08/07/2024 1:30 PM UNLOADER OPERATOR Virtual Visit [facility] Diabetes Education [address] 3rd [place] [phone] Stephie Mahoney MD 420 [facility] 101 [place] [address] Federica Foster, MENDEL 420 [place], [place] 794095 01/09/2025 8:00 AM CDT Lab [facility] Laboratory [address] [place] [address] 01/16/2025 3:30 PM CDT Virtual Visit [facility] Endocrinology Clinic [address] 3rd [place] [address] Stephie Mahoney MD [address] 493575 06/05/2025 12:30 PM CDT Office Visit [facility] Endocrinology [address] 3rd [place] [address] Stephie Mahoney MD [address] 314495 documented as of this encounter Visit Diagnoses Not on filedocumented in this encounter Additional Health Concerns Infection Onset Date Last Indicated Resolved Time Rule Out COVID-19 03/10/2022 03/10/2022 03/10/2022 1:37 AM CDT COVID-19 03/10/2022 03/10/2022 03/31/2022 11:3 9 PM CDT documented as of this encounter Care Teams Boiler Tester Relationship Specialty [place] [address] [address] [address] PCP - General Family Practice 11/21/16 [place] [address] [address] [address] Assigned PCP 10/31/20 01/29/21 Matt Baez MD [address] [place] [address] Assigned Heart and Vascular Provider 06/11/20 06/23/22 [place] [address] [address] [address] Assigned PCP 11/02/16 10/30/20 [place] [address] [place] [address] Assigned PCP 01/30/21 Stephie Mahoney MD [address] 762985 Endocrinology, Diabetes, and Metabolism 04/22/21 Federica Foster RN [address] [place] [address] [id number] Ice Cream Freezer Diabetes Education 04/22/[address] [place] [address] 395854 Ice Cream Freezer Nutrition 04/22/21 Stephie Mahoney MD [address] [place] [address] 828855 Assigned Endocrinology Provider 05/08/21 Olga Garcia RN Specialty Pest Technician INTERNAL MEDICINE - ENDOCRINOLOGY, DIABETES & METABOLISM 09/29/22 Matt Baez MD [address] [address] [place] 155365 Assigned Heart and Vascular Provider 12/23/22 05/04/23 Junior Chavira MD [address] [place] 724145 Cardiovascular Disease 05/29/24 documented as of this encounter
--- OUTSIDE RECORDS SUMMARY | 2024-07-02 08:26 | XMS_ITS | Encounter Summary ---
Author Organization [place] Address [address] [place] [address]. [place] [address] Care Team Providers Care School Bus Driver/Custodian Name Role Phone Wilber Vidales MD Primary Care Provider + Wilber Vidales MD Unavailable +[phone] Matt Baez MD Unavailable +[phone] Wilber Vidales MD Unavailable +[phone] Wilber Vidales MD Unavailable +[phone] Stephie Mahoney MD Unavailable +[phone] Federica Foster RN Unavailable [phone] Unavailable [phone] Stephie Mahoney MD Unavailable +[phone] Olga Garcia RN Unavailable +[phone] Matt Baez MD Unavailable [phone] Junior Chavira MD Unavailable +[phone] Reason for Visit * Reason Onset Date Comments Pt. Information/instruction 06/26/2019 Aort ic Valve replacement Encounter Details Date Type Department Care Team (Late st Contact Info) Description 06/26/2019 [facility] [address], [address] [place] [address] [place] [address] [place] [address] Pt. Information/instruct ion (Aortic Valve ... Social History Tobacco Use Types Packs/Day Years [...] Answer Date Recorded PHQ-2 Score 0 08/27/2018 [facility] of Occupat ional Health - Occupational [...] AM CDT 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 TRIM DIE MAKER Gender Identity Male 03/03/2019 9:24 PM CDT Sexual Orientation Straight 03/03/2019 9: 24 PM CDT documented as of this encounter Plan of Treatment Upcoming Encounters Date Type Department Care Team (Late st Contact Info) Description 07/11/2024 8:00 AM TRIM DIE MAKER Office Visit M [facility] [place] [address] [facility] [address] [place] [address] Junior Chavira MD [address] [place] [address] 07/30/2024 7:30 AM TRIM DIE MAKER Appointment M [facility] Specialty Care [address] [facility] [address] [place] [address] Candy Trivedi MD [address] [place] [address] 08/07/2024 1:30 PM TRIM DIE MAKER Virtual Visit M [facility] Diabetes Education [place] 909 [facility] 3rd [place] [phone] Stephie Mahoney MD 420 [facility] 101 [place], [place] [address] Federica Foster RN 420 [place], [place] 29[address]85 01/09/2025 8:00 AM CDT Lab [facility] Laboratory [address] [place] [address] 01/16/2025 3:30 PM CDT Virtual Visit [facility] Endocrinology [address]rd [place] [address] Stephie Mahoney MD [address] 096105 06/05/2025 12:30 PM CDT Office Visit [facility] Endocrinology [address] [phone] Stephie Mahoney MD [address] 439525 documented as of this encounter Visit Diagnoses Not on filedocumented in this encounter Additional Health Concerns Infection Onset Date Last Indicated Resolved Time Rule Out COVID-19 03/10/2022 03/10/2022 03/10/2022 1:37 AM CDT COVID-19 03/10/2022 03/10/2022 03/31/2022 11:3 9 PM CDT documented as of this encounter Care Teams School Bus Driver/Custodian Relationship Specialty [place] [address] [place] [address] PCP - General Family Practice 11/21/16 [place] [address] [place] [address] Assigned PCP 10/31/20 01/29/21 Matt Baez MD [address] [place] [address] Assigned Heart and Vascular Provider 06/11/20 06/23/22 [place] [address] [place] [address] Assigned PCP 11/02/16 10/30/20 [place] [address] [place] [address] Assigned PCP 01/30/21 Stephie Mahoney MD [address] 551235 Endocrinology, Diabetes, and Metabolism 04/22/21 Federica Foster RN 420 [place], [place] 797[address] Inventory Assistant Diabetes Education 04/22/[address] [place] [address] [id number] Inventory Assistant Nutrition 04/22/21 Stephie Mahoney MD [address] [place] [address] 045315 Assigned Endocrinology Provider 05/08/21 Olga Garcia, RN Specialty Payroll Accounting Specialist INTERNAL MEDICINE - ENDOCRINOLOGY, DIABETES & METABOLISM 09/29/22 Matt Baez MD [address] [place] 580305 Assigned Heart and Vascular Provider 12/23/22 05/04/23 Junior Chavira MD [address] [place] 470215 Cardiovascular Disease 05/29/24 documented as of this encounter
--- OUTSIDE RECORDS SUMMARY | 2024-07-02 08:26 | XMS_ITS | Encounter Summary ---
Author Organization [place] Address [address] [place] [address]. [place] [address] Care Team Providers Care Counter Tacker Name Role Phone Wilber Vidales MD Primary Care Provider + Wilber Vidales MD Unavailable [phone] Wilber Vidales MD Unavailable [phone] Matt Baez MD Unavailable [phone] Wilber Vidales MD Unavailable +[phone] Wilber Vidales MD Unavailable [phone] Stephie Mahoney MD Unavailable [phone] Federica Foster RN Unavailable +[phone] Unavailable [phone] Stephie Mahoney MD Unavailable +[phone] Olga Garcia RN Unavailable +[phone] Matt Baez MD Unavailable +[phone] Junior Chavira MD Unavailable +[phone] Reason for Visit * Reason Onset Date Comments Medication Request 08/15/2018 Sildenafil 50 mg Encounter Details Date Type Department Care Team (Late st Contact Info) Description 08/15/2018 MyC Medical Advice [facility], [address] [place] [phone] [place] [address] [place] [address] Medication Request (Sildenafil 50mg) Social History Tobacco Use Types Packs/Day Years Used Date Smoking Tobacco: Never Smokeless Tobacco: Never Alcohol Use Standard Drinks/Week Comments Yes 0 (1 standard drink = 0.6 oz pur e alcohol) 2/week Sex and Gender Information Value Date Recorded Sex Assigned at Male 06/07/2019 7:29 AM CDT 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 SCUTCHER TENDER Gender Identity Male 03/03/2019 9:24 PM CDT Sexual Orientation Straight 03/03/2019 9: 24 PM CDT documented as of this encounter Miscellaneous Notes * Telephone Encounter - Padmini Jin - 08/16/2018 1:39 PM CST Rx picked up by pt. Bustos CHER TENDER documented in this encounter Plan of Treatment Upcoming Encounters Date Type Department Care Team (Late st Contact Info) Description 07/11/2024 8:00 AM SCUTCHER TENDER Office Visit M [facility] Clinic [place] [address] [facility] [address] [place] [phone] Junior Chavira MD [address] [place], [place] 1[address] 07/30/2024 7:30 AM SCUTCHER TENDER Appointment M [facility] Specialty Care [address] [facility] [address] [place] [phone] Candy Trivedi MD [address] [place], [place] [address] 08/07/2024 1:30 PM SCUTCHER TENDER Virtual Visit [facility] Diabetes Education [address] 3rd [place] [phone] Stephie Mahoney MD [address] [place] [address] Federica Foster RN [address] [place] [address] 01/09/2025 8:00 AM CDT Lab [facility] Laboratory [address] [place] [address] 01/16/2025 3:30 PM CDT Virtual Visit [facility] Endocrinology [address] [phone] Stephie Mahoney MD [address] [place] [address] 06/05/2025 12:30 PM CDT Office Visit [facility] Endocrinology [address] [phone] Stephie Mahoney MD [address] [place] [address] documented as of this encounter Visit Diagnoses Diagnosis Erectile dysfunction, unspecified erectile dysfunction type documented in this encounter Additional Health Concerns Infection Onset Date Last Indicated Resolved Time Rule Out COVID-19 03/10/2022 03/10/2022 03/10/2022 1:37 AM CDT COVID-19 03/10/2022 03/10/2022 03/31/2022 11:3 9 PM CDT documented as of this encounter Care Teams Counter Tacker Relationship Specialty [place] [address] [address] [address] PCP - General Family Practice 11/21/16 [place] [address] [address] [address] PCP - Assigned PCP 11/02/16 10/22/18 [place] [address] [place] [address] Assigned PCP 10/31/20 01/29/21 Matt Baez MD [address] [facility] [address] [place] [address] Assigned Heart and Vascular Provider 06/11/20 06/23/22 [place] [address] [place] [address] Assigned PCP 11/02/16 10/30/20 [place] [address] [place] [address] Assigned PCP 01/30/21 Stephie Mahoney MD [address] [place] [address] Endocrinology, Diabetes, and Metabolism 04/22/21 Federica Foster RN [address] [place] [address] [phone] Bottomer Operator Diabetes Education 04/22/[address] [place] [address] [phone] Bottomer Operator Nutrition 04/22/21 Stephie Mahoney MD [address] [place] [address] 603365 Assigned Endocrinology Provider 05/08/21 Olga Garcia, RN Specialty Toy Department Manager INTERNAL MEDICINE - ENDOCRINOLOGY, DIABETES & METABOLISM 09/29/22 Matt Baez MD [address] [place] [address] Assigned Heart and Vascular Provider 12/23/22 05/04/23 Junior Chavira MD [address] [place] 164585 Cardiovascular Disease 05/29/24 documented as of this encounter
--- OUTSIDE RECORDS SUMMARY | 2024-07-02 08:26 | XMS_ITS | Encounter Summary ---
Author Organization [facility] Address [address] [place] [address]. [place] [address] Care Team Providers Care Inspector Air Carrier Name Role Phone Wilber Vidales MD Primary Care Provider + Wilber Vidales MD Unavailable [phone] Matt Baez MD Unavailable [phone] Wilber Vidales MD Unavailable [phone] Wilber Vidales MD Unavailable [phone] Stephie Mahoney MD Unavailable [phone] Federica Foster RN Unavailable +[phone] Unavailable [phone] Stephie Mahoney MD Unavailable [phone] Olga Garcia RN Unavailable [phone] Matt Baez MD Unavailable [phone] Junior Chavira MD Unavailable [phone] Encounter Details Date Type Department Care Team (Late st Contact Info) Description 06/26/2019 MyC Medical Advice [facility] PHYS STANDARD [address] [place] [address] Tiarra Poole, RN Social History Tobacco Use [...] and Family Once a week 03/17/2019 Attends Jainism Services More than 4 times per year [...] Answer Date Recorded PHQ-2 Score 0 08/27/2018 [facility] [place] of Occupat ional Health - Occupational Stress [...] AM CDT 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 RESEARCH CHIEF ENGINEER Gender Identity Male 03/03/2019 9:24 PM CDT Sexual Orientation Straight 03/03/2019 9: 24 PM CDT documented as of this encounter Plan of Treatment Upcoming Encounters Date Type Department Care Team (Late st Contact Info) Description 07/11/2024 8:00 AM RESEARCH CHIEF ENGINEER Office Visit [facility] Heart [facility] [address] [facility] [address] [place] [phone] Junior Chavira MD [address] [place], [place] [address] 07/30/2024 7:30 AM RESEARCH CHIEF ENGINEER Appointment [facility] [address] [facility] [address] [place] [phone] Candy Trivedi MD [address] [place], [place] [address] 08/07/2024 1:30 PM RESEARCH CHIEF ENGINEER Virtual Visit [facility] Diabetes Education [address] [address] Stephie Mahoney MD 420 [facility] 101 [place], [place] [address] Federica Foster RN 420 [place], [place] [address] 01/09/2025 8:00 AM CDT Lab [facility] [address] [place] [phone] 01/16/2025 3:30 PM CDT Virtual Visit [facility] Endocr[facility]ology Clinic [address] [phone] Stephie Mahoney MD [address] [address] 06/05/2025 12:30 PM CDT Office Visit [facility] Endocrinology Clinic [place] [phone] [facility] [address] 3rd [place] [phone] Stephie Mahoney MD [address] 5507[address] documented as of this encounter Visit Diagnoses Not on filedocumented in this encounter Additional Health Concerns Infection Onset Date Last Indicated Resolved Time Rule Out COVID-19 03/10/2022 03/10/2022 03/10/2022 1:37 AM CDT COVID-19 03/10/2022 03/10/2022 03/31/2022 11:3 9 PM CDT documented as of this encounter Care Teams Inspector Air Carrier Relationship Specialty [place] [address] [address] [address] PCP - General Family Practice 11/21/16 [place] [address] [address] [address] Assigned PCP 10/31/20 01/29/21 Matt Baez MD [address] [place] [address] Assigned Heart and Vascular Provider 06/11/20 06/23/22 [place] [address] [address] [address] Assigned PCP 11/02/16 10/30/20 [place] [address] [place] [address] Assigned PCP 01/30/21 Stephie Mahoney MD [address] [place] [address] Endocrinology, Diabetes, and Metabolism 04/22/21 Federica Foster, RN [address] [place] [address] Community Program Assistant Diabetes Education 04/22/[address] [place] [address] Community Program Assistant Nutrition 04/22/21 Stephie Mahoney MD [address] [place] [address] Assigned Endocrinology Provider 05/08/21 Olga Garcia RN Specialty Gravity Prospecting Operator Helper INTERNAL MEDICINE - ENDOCRINOLOGY, DIABETES & METABOLISM 09/29/22 Matt Baez MD [address] [place] [address] Assigned Heart and Vascular Provider 12/23/22 05/04/23 Junior Chavira MD [address] [place] [id number] Cardiovascular Disease 05/29/24 documented as of this encounter
--- OUTSIDE RECORDS SUMMARY | 2024-07-02 08:26 | XMS_ITS | Clinical Summary ---
Author Organization [facility] Address [place], [place] [address] Care Team Providers Care Bag Making Machine Operator Name Role Phone Lisandra Osborne MD, Ty Primary Care Provider [phone] Allergies Active Allergy Reactions Criticality Noted Date Comments Phenytoin Other - Describe In Comment Field,Rash Low 10/06/2015 high fever Fever Procarbazine Rash Low 11/21/2016 Sulfa (Sulfonamide Antibiotics) Rash Low 11/21/2016 Sulfamethoxazole Rash Low 10/06/2015 Medications Medication Sig Dispensed Refills Start Date End Date Status ELIQUIS 5 mg tablet Take 1 tablet (5 mg) by mouth 2 times daily 09/28/2020 Active aspirin chewable 81 mg chewable tablet Take 81 mg by mouth. 01/08/2020 Acti ve atorvastatin (LIPITOR) 40 mg tablet Take 40 mg by mouth. 07/01/2020 Acti ve carvediloL (COREG) 12.5 mg tablet Take 1 tablet (12.5 mg) by mouth 2 times daily (with meals) 09/16/2020 Active lisinopriL (PRINIVIL; ZESTRIL) 5 mg tablet Take 1 tablet (5 mg) by mouth 2 times daily 08/24/2020 Active zaleplon (SONATA) 10 mg capsule TAKE 1 CAPSULE BY MOUTH AT BEDTIME NEEDED FOR MIDDLE OF THE NIGHT AWAKENINGS. DO NOT DOSE AFTER 3 AM 05/25/2020 Active modafiniL (PROVIGIL) 200 mg tablet TAKE ONE TO TWO TABLETS BY MOUTH EVERY MORNING NEEDED 10/16/2020 Active lamoTRIgine (LAMICTAL) 200 mg tablet Take 200 mg by mouth 2 times daily. 10/04/2020 Active lamoTRIgine (LAMICTAL) 100 mg tablet TAKE 1 TABLET BY MOUTH TWICE DAILY (WITH THE 200MG TABLETS) 10/04/2020 Active HYDROcodone-acetam inophen (NORCO) 5-325 mg per tabletIndications: Contusion of left knee, initial encounter Take 1-2 Tablets by mouth 2 times daily Or take as bedtime, Max acetaminophen dose: 4000 mg in 24 hrs. 12 Tablet 11/01/2020 Active predniSONE (DELTASONE) 10 mg tabletIndications: Contusion of right eyelid, initial encounter,Pain and swelling of knee, left Take 1 Tablet by mouth once daily with a meal. Take 3 tabs daily with food for 2 days, then 2 tablets daily for 2 days, and then 1 tablet daily for 2 days. 12 Tablet 11/01/2020 Active Active Problems No known active problems Immunizations Name Administration Dates Next Due Influenza Intradermal PF 18-64 yrs 06/07/2012 Influenza RIV4 (Age 18+ Years) PRESERV FREE 06/20 Influenza Virus, Unspecified 07/16/1995 Td (Age >=7 Years) 07/16/1995 Tdap 03/08/2018 Zoster (Zostavax-ZVL, live) 06/04/2017 Social History Tobacco Use Types Packs/Day Years Used Date Smoking Tobacco: Never Smokeless Tobacco: Never Sex and Gender Information Value Date Recorded Sex Assigned at Not on file Gender Identity Not on file Sexual Orientation Not on file Obstetrics History Last Filed Vital Signs Vital Sign Reading Time Taken Comments Blood Pressure 126/78 11/01/2020 8:46 AM CDT Pulse 70 11/01/2020 8:46 AM CDT Temperature 36.9 ??C (98.4 ??F) 11/01/2020 8:46 AM CD T Respiratory Rate 18 11/01/2020 8:46 AM CDT Oxygen Saturation 97% 11/01/2020 8:46 AM CDT Inhaled Oxygen Concentration - - Weight 79.4 kg (175 lb) 11/01/2020 8:46 AM CDT Height 177.8 cm (5' 10) 11/01/2020 8:46 AM CDT Body Mass Index 25.11 11/01/2020 8:46 AM CDT Plan of Treatment Health Maintenance Due Date Last Done Comments Depression screening for age 12+ 1974 HIV for age 15-65 1977 Hepatitis C screening for ag e 18-79 1980 Colonoscopy through age 75 01/01/2008 Lipids for age 45-75 01/01/2008 Zoster (shingles) series for age 50+ (2 of 3) 07/30/2017 06/04/2017 BMI (ht and wt on same day) for age 18+ 11/01/2021 11/01/2020 COVID-19 vaccine series (2023- season) 2024 Influenza for age 50-64 04/20/2024 07/01/20, 07/16/1995 Tetanus booster 03/08/2028 03/08/2018, 07/16/1995 Tdap Completed 03/08/2018 Pneumococcal series for age 6-64 Aged Out No longer eligible b ased on patient's age to complete this topic Care Teams Bag Making Machine Operator Relationship Specialty [place] [address] [place] [address] PCP - General 07/23/05
--- OUTSIDE RECORDS SUMMARY | 2024-07-02 08:26 | XMS_ITS | Clinical Summary ---
[facility] Address [address], [place] [address] Care Team Providers Care Official Greeter Name Role Phone Wilber Vidales MD Primary Care Provider [phone] Source Comments You are receiving this document as you are listed as the primary care provider,follow-up provider, or the patient has been referred to you for consultation.This is in compliance with the Medicare and[facility] EHR Incentive Program,which states Providers who transition their patient to another setting of careor provider of care or refers their patient to another provider of care shouldprovide summary care record for each transition of care or referral. [facility] Allergies Active Allergy Reactions Criticality Noted Date Comments Sulfa Antibiotics Rash 05/09/2021 Medications Medication Sig Dispensed Refills Start Date End Date Status ELIQUIS 5 MG tablet Take 1 tablet (5 mg) by mouth 2 times daily 03/24/2021 Active amoxicillin (AMOXIL) 500 MG capsule TAKE 4 CASULES BY MOUTH 30 TO 60 MINUTES BEFORE PROCEDURE 04/20/2021 Active carvedilol (COREG) 12.5 MG tablet Take 12.5 mg by mouth two times a day with meals. 03/16/2021 Active Continuous Blood Gluc Sensor (FREESTYLE DAMASO 2 SENSOR) MISC REPLACE SENSOR EVERY 14 DAY 05/03/2021 Active NOVOLOG FLEXPEN 100 UNIT/ML pen injection INJECT 3 UNITS SUBCUTANEOUSLY WITH EACH MEAL. 04/30/2021 Active BAQSIMI TWO PACK 3 MG/DOSE nasal powder SPRAY 1 APPLICATION INTO NOSTRIL DAILY NEEDED 05/03/2021 Active LANTUS SOLOSTAR 100 UNIT/ML pen Inject 10 Units Subcutaneously At Bedtime 04/20/2021 Active ULTIGUARD SAFEPACK PEN NEEDLE 32G X 4 MM USE 1 EACH DAILY 04/20/2021 Active lamoTRIgine (LAMICTAL) 100 MG tablet TAKE ONE TABLET BY MOUTH TWICE DAILY. take with 200mg tablets. 03/24/2021 Active lisinopril (ZESTRIL) 5 MG tablet Take 5 mg by mouth two times a day. 04/30/2021 Active metFORMIN (GLUCOPHAGE) 500 MG tablet 05/06/2021 Active modafinil (PROVIGIL) 200 MG tablet TAKE ONE TO TWO TABLETS BY MOUTH EVERY MORNING NEEDED 05/03/2021 Active ezetimibe (ZETIA) 10 MG tablet Take 1 Tablet (10 mg) by mouth daily. Take at night 05/30/2024 Active atorvastatin (LIPITOR) 40 MG tablet Take 40 mg by mouth daily at bedtime. 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, without status epilepticus 11/21/2016 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 JEFERSON (obstructive sleep apnea) 11/21/2016 Chronic lower back pain 09/03/2014 Encounters Date Type Department Care Team Description 06/27/2024 2:40 PM MECHANICAL PIPING DESIGNER Office Visit [facility] [place] [address] [place] [phone] Carla Vasquez, OD Type 1 diabetes mellitus without complication (HRC) (Primary Dx); Examination of eyes and vision; Regular astigmatism of both eyes; Status post LASIK surgery; Age-related nuclear cataract of both eyes from Last 3 Months Immunizations Name Administration Dates Next Due Influenza, Unspecified Formulation 07/16/1995 Td 07/16/1995 Family History Medical History Relation Name Comments Cataract Father Cataract Mother Cataract Brother Amblyopia/Strabismus Negative Family History Blindness Negative Family History Glaucoma Negative Family History Macular Degeneration Negative Family History Retinal Detachment Negative Family History Relation Name Status Comments Father Mother Brother Social History Tobacco Use Types Packs/Day Years Used Date Smoking Tobacco: Never Assessed Sex and Gender Information Value Date Recorded Sex Assigned at Not on file Gender Identity Not on file Sexual Orientation Not on file Plan of Treatment Health Maintenance Due Date Last Done Comments Colon Cancer Screening Plan Due 1962 Diabetes: Creatinine 1962 Diabetes: Foot Exam 1962 Diabetes: Lipid Panel 1962 Diabetes: Urine Microalbumin 1962 Hep C Screening (Preventive Services) 1962 PSA Screening Discussion 1962 Pneumococcal (1 - PCV) 1968 HIV Screening (Preventive Services) 1978 Adult Preventive Visit 1980 Zoster/Shingles (2 of 3) 07/30/2017 06/04/2017 COVID-19 Vaccine ( season) 2024 Influenza (#1) 2024 07/01/2020, 05/20, 07/16/1995 Diabetes: HGBA1C 07/19/2024 04/18/2024, , 07/19/2023, Additional history exists Diabetes: Eye Exam 06/27/2025 06/27/2024, 1 08/27/2023, 06/15/2023, Additional history exists DTaP/Tdap/Td (2 - Tdap) 03/08/2028 03/08/2018, 07/16 RSV (1 - 1-dose 75+ series) 2037 HepA Aged Out No longer eligi ble based on patient's age to complete this topic HepB Aged Out No longer eligi ble based on patient's age to complete this topic Hib Aged Out No longer eligi ble based on patient's age to complete this topic IPV (Polio) Aged Out No longer eligi ble based on patient's age to complete this topic RSV Aged Out No longer eligi ble based on patient's age to complete this topic MCV4 Aged Out No longer eligi ble based on patient's age to complete this topic Care Teams Official Greeter Relationship Specialty [place] [address] [place] [address] PCP - General Family Practice 04/26/21
--- OUTSIDE RECORDS SUMMARY | 2024-07-02 08:26 | XMS_ITS | Encounter Summary ---
Author Organization [facility] Address [address] [place], [place] [address]. [place] [address] Care Team Providers Care International Broadcast Music Librarian Name Role Phone Wilber Vidales MD Primary Care Provider + Wilber Vidales MD Unavailable [phone] Matt Baez MD Unavailable [phone] Wilber Vidales MD Unavailable [phone] Wilber Vidales MD Unavailable [phone] Stephie Mahoney MD Unavailable [phone] Federica Foster RN Unavailable [phone] Unavailable [phone] Stephie Mahoney MD Unavailable [phone] Olga Garcia RN Unavailable [phone] Matt Baez MD Unavailable [phone] Junior Chavira MD Unavailable [phone] Encounter Details Date Type Department Care Team (Late st Contact Info) Description 06/26/2019 MyC Medical Advice [facility] Cardiothoracic [address] [address] Ej Haines MD 420 [facility] [address] [place] [address] Social History Tobacco Use Types [...] Answer Date Recorded PHQ-2 Score 0 08/27/2018 [facility] of Occupat [...] AM CDT 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 MERCHANDISE DISPLAYER Gender Identity Male 03/03/2019 9:24 PM CDT Sexual Orientation Straight 03/03/2019 9: 24 PM CDT documented as of this encounter Plan of Treatment Upcoming Encounters Date Type Department Care Team (Late st Contact Info) Description 07/11/2024 8:00 AM MERCHANDISE DISPLAYER Office Visit [facility] [address] [facility] [address] [place] [phone] Junior Chavira MD [address] [place], [place] [address] 07/30/2024 7:30 AM MERCHANDISE DISPLAYER Appointment [facility] Specialty Care [address] [facility] [address] [place] [phone] Candy Trivedi MD [address] [place] [address] 08/07/2024 1:30 PM MERCHANDISE DISPLAYER Virtual Visit [facility] Diabetes Education [address] 3rd [place] [phone] Stephie Mahoney MD 420 [facility] [address] [place] [address] Federica Foster, [address] [place], [place] [address] 01/09/2025 8:00 AM CDT Lab [facility] [address] [place] [address] 01/16/2025 3:30 PM CDT Virtual Visit [facility]ology [facility] [address] [place] [phone] Stephie Mahoney MD [address] [address] 06/05/2025 12:30 PM CDT Office Visit [facility] Endocrinology [address] [place] [phone] Stephie Mahoney MD [address] [address] documented as of this encounter Visit Diagnoses Not on filedocumented in this encounter Additional Health Concerns Infection Onset Date Last Indicated Resolved Time Rule Out COVID-19 03/10/2022 03/10/2022 03/10/2022 1:37 AM CDT COVID-19 03/10/2022 03/10/2022 03/31/2022 11:3 9 PM CDT documented as of this encounter Care Teams International Broadcast Music Librarian Relationship Specialty [place] [address] [address] [address] PCP - General Family Practice 11/21/16 [place] [address] [address] [address] Assigned PCP 10/31/20 01/29/21 Matt Baez MD [address] [place] [address] Assigned Heart and Vascular Provider 06/11/20 06/23/22 [place] [address] [address] [address] Assigned PCP 11/02/16 10/30/20 [place] [address] [place] [address] Assigned PCP 01/30/21 Stephie Mahoney MD [address] 935[address] Endocrinology, Diabetes, and Metabolism 04/22/21 Federica Foster RN [address] [place] [address] 404255 Service Person Diabetes Education 04/22/[address] [place] [address] 348094 Service Person Nutrition 04/22/21 Stephie Mahoney MD [address] [place] [address] 994365 Assigned Endocrinology Provider 05/08/21 Olga Garcia RN Specialty Solar Project Manager INTERNAL MEDICINE - ENDOCRINOLOGY, DIABETES & METABOLISM 09/29/22 Matt Baez MD [address] [place] [address] Assigned Heart and Vascular Provider 12/23/22 05/04/23 Junior Chavira MD [address] [place] 665675 Cardiovascular Disease 05/29/24 documented as of this encounter
--- OUTSIDE RECORDS SUMMARY | 2024-07-02 08:26 | XMS_ITS | Encounter Summary ---
Author Organization [facility] Address [address] [place] [address]. [place] [address] Care Team Providers Care Mortar Carrier Name Role Phone Wilber Vidales MD Primary Care Provider + Wilber Vidales MD Unavailable [phone] Matt Baez MD Unavailable [phone] Wilber Vidales MD Unavailable [phone] Wilber Vidales MD Unavailable [phone] Stephie Mahoney MD Unavailable [phone] Federica Foster RN Unavailable [phone] Unavailable [phone] Stephie Mahoney MD Unavailable [phone] Olga Garcia RN Unavailable [phone] Matt Baez MD Unavailable [phone] Junior Chavira MD Unavailable [phone] Encounter Details Date Type Department Care Team (Late st Contact Info) Description 06/23/2019 MyC Medical Advice SH PHYS STANDARD [address] [place] [address] Tiarra Poole, RN Social History Tobacco Use [...] and Family Once a week 03/17/2019 Attends Sikhism Services More than 4 times per year [...] Answer Date Recorded PHQ-2 Score 0 08/27/2018 [facility] [place] of Occupat ional Health - Occupational Stress [...] AM CDT 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 Gender Identity Male 03/03/2019 9:24 PM CDT Sexual Orientation Straight 03/03/2019 9: 24 PM CDT documented as of this encounter Plan of Treatment Upcoming Encounters Date Type Department Care Team (Late st Contact Info) Description 07/11/2024 8:00 AM DROP CREW LABORER Office Visit [facility] Heart [facility] [address] [facility] [address] [place] [phone] Junior Chavira MD [address] [place], [place] [address] 07/30/2024 7:30 AM DROP CREW LABORER Appointment [facility] Specialty Care [address] [facility] [address] [place] [phone] Candy Trivedi MD [address] [place], [place] [address] 08/07/2024 1:30 PM DROP CREW LABORER Virtual Visit [facility] Diabetes Education [address] [address] Stephie Mahoney MD 420 [facility] [address] [place], [place] [address] Federica Foster RN 420 [place], [place] [address] 01/09/2025 8:[address] [facility] [address] [place] [phone] 01/16/2025 3:30 PM CDT Virtual Visit [facility] Endocrinology Clinic [address] [phone] Stephie Mahoney MD [address] 58[address] 06/05/2025 12:30 PM CDT Office Visit [facility] Endocrinology Clinic [place] [address] [facility] [address] 3rd [place] [phone] Stephie Mahoney MD [address] 733[address] documented as of this encounter Visit Diagnoses Not on filedocumented in this encounter Additional Health Concerns Infection Onset Date Last Indicated Resolved Time Rule Out COVID-19 03/10/2022 03/10/2022 03/10/2022 1:37 AM CDT COVID-19 03/10/2022 03/10/2022 03/31/2022 11:3 9 PM CDT documented as of this encounter Care Teams Mortar Carrier Relationship Specialty [place] [address] [address] [address] PCP - General Family Practice 11/21/16 [place] [address] [address] [address] Assigned PCP 10/31/20 01/29/21 Matt Baez MD [address] [place] [address] Assigned Heart and Vascular Provider 06/11/20 06/23/22 [place] [address] [address] [address] Assigned PCP 11/02/16 10/30/20 [place] [address] [place] [address] Assigned PCP 01/30/21 Stephie Mahoney MD [address] [place] [address] Endocrinology, Diabetes, and Metabolism 04/22/21 Federica Foster, RN [address] [place] [address] Vegetable Handler Diabetes Education 04/22/[address] [place] [address] Vegetable Handler Nutrition 04/22/21 Stephie Mahoney MD [address] [place] [address] Assigned Endocrinology Provider 05/08/21 Olga Garcia RN Specialty Gas Plant Specialist INTERNAL MEDICINE - ENDOCRINOLOGY, DIABETES & METABOLISM 09/29/22 Matt Baez MD [address] [place] [address] Assigned Heart and Vascular Provider 12/23/22 05/04/23 Junior Chavira MD [address] [place] [id number] Cardiovascular Disease 05/29/24 documented as of this encounter
--- OUTSIDE RECORDS SUMMARY | 2024-07-02 08:26 | XMS_ITS ---
Author Organization [facility] Address [address] [place] [address]. [place] [address] Care Team Providers Care Prescriptionist Name Role Phone Wilber Vidales MD Primary Care Provider + Wilber Vidales MD Unavailable [phone] Stephie Mahoney MD Unavailable [phone] Federica Foster RN Unavailable [phone] Unavailable [phone] Stephie Mahoney MD Unavailable [phone] Olga Garcia RN Unavailable [phone] Junior Chavira MD Unavailable [phone] Diabetes Self-Management Education Status:Enrolled (Active) Start date:06/15/2021 Enrollment date:06/15/2021 Case Team Name Relationship Phone Federica Foster band tumbler(Responsible Staff) [phone] Continued Care and Services Coordination
--- OUTSIDE RECORDS SUMMARY | 2024-07-02 08:26 | XMS_ITS | Encounter Summary ---
Author Organization [place] Address [address] [place] [address]. [place] [address] Care Team Providers Care Ultrasound Technologist Sonographer Name Role Phone Wilber Vidales MD Primary Care Provider + Wilber Vidales MD Unavailable [phone] Matt Baez MD Unavailable [phone] Wilber Vidales MD Unavailable [phone] Wilber Vidales MD Unavailable [phone] Stephie Mahoney MD Unavailable [phone] Federica Foster RN Unavailable [phone] Unavailable [phone] Stephie Mahoney MD Unavailable [phone] Olga Garcia RN Unavailable [phone] Matt Baez MD Unavailable [phone] Junior Chavira MD Unavailable [phone] Encounter Details Date Type Department Care Team (Late st Contact Info) Description 05/12/2019 MyC Medical Advice [facility] [id number] [place] [address], [address] [place] [address] Denise Hernandez Social History Tobacco Use Types Packs/Day Years [...] and Family Once a week 03/17/2019 Attends Shinto Services More than 4 times per year [...] Answer Date Recorded PHQ-2 Score 0 08/27/2018 [facility] [place] of Occupat ional Health - Occupational Stress [...] AM CDT 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 Gender Identity Male 03/03/2019 9:24 PM CDT Sexual Orientation Straight 03/03/2019 9: 24 PM CDT documented as of this encounter Plan of Treatment Upcoming Encounters Date Type Department Care Team (Late st Contact Info) Description 07/11/2024 8:00 AM INSURANCE CODER Office Visit [facility] Heart [facility] [address] [place] [phone] Junior Chavira MD [address] [place], [place] [id number] 07/30/2024 7:30 AM INSURANCE CODER Appointment [facility] [address] [place] [phone] Candy Trivedi MD [address] [place], [place] [id number] 08/07/2024 1:30 PM INSURANCE CODER Virtual Visit [facility] Diabetes Education [address] [phone] Stephie Mahoney MD [address] [place], [place] [address] Federica Foster, RN [address] [place], [place] [id number] 01/09/2025 8:00 AM CDT Lab [facility] [address] [place] [phone] 01/16/2025 3:30 PM CDT Virtual Visit [facility] Endocrinology Clinic [address] [phone] Stephie Mahoney MD [address] [facility] [facility] [address] [place] [address] 06/05/2025 12:30 PM CDT Office Visit [facility] Endocrinology Clinic [place] [address] [facility] [address] [place] [phone] Stephie Mahoney MD [address] [facility] [address] [place] [address] documented as of this encounter Visit Diagnoses Not on filedocumented in this encounter Additional Health Concerns Infection Onset Date Last Indicated Resolved Time Rule Out COVID-19 03/10/2022 03/10/2022 03/10/2022 1:37 AM CDT COVID-19 03/10/2022 03/10/2022 03/31/2022 11:3 9 PM CDT documented as of this encounter Care Teams Ultrasound Technologist Sonographer Relationship Specialty [place] [address] [address] [address] PCP - General Family Practice 11/21/16 [place] [address] [address] [address] Assigned PCP 10/31/20 01/29/21 Matt Baez MD [address] [place] [address] Assigned Heart and Vascular Provider 06/11/20 06/23/22 [place] [address] [address] [address] Assigned PCP 11/02/16 10/30/20 [place] [address] [place] [address] Assigned PCP 01/30/21 Stephie Mahoney MD [address] [place] [address] Endocrinology, Diabetes, and Metabolism 04/22/21 Federica Foster, RN [address] [place] [id number] Film Developer Diabetes Education 04/22/[address] [place] [address] Film Developer Nutrition 04/22/21 Stephie Mahoney MD [address] [place] [address] Assigned Endocrinology Provider 05/08/21 Olga Garcia RN Specialty Basket [facility] INTERNAL MEDICINE - ENDOCRINOLOGY, DIABETES & METABOLISM 09/29/22 Matt Baez MD [address] [place], [place] [address] Assigned Heart and Vascular Provider 12/23/22 05/04/23 Junior Chavira MD [address] [place] [id number] Cardiovascular Disease 05/29/24 documented as of this encounter
--- OUTSIDE RECORDS SUMMARY | 2024-07-02 08:27 | XMS_ITS | Data Portability ---
Author Organization [facility] Derm atology, Main Office Address [address] [facility] [place] [address] Assessment Encounter Date Assessment Date Assessment LastModified by Organization Details LastModified Time 05/01/2022 05/01/2022 1. Biopsy-proven basal carcinoma left lower eyelid large. verbally and in the presence of his on the digital board we reviewed Mohs surgery versus standard surgery the risks of almost guaranteed swelling and bruising. The need to minimize the risk of an ectropion. 90+ percent cure temperature 98%. Scarring. Chance of infection. Pain discomfort chance recurrence and healing. Written and verbal informed consent obtained Area cleansed with alcohol, 1% lidocaine with epinephrine he did not anesthetized very well between that and Marcaine it took over 30 cc each of these diluted with bicarb therefore more like 15 cc of active ingredients between the 2. Stage I curette debulking performed 1 to 1/2 mm margins taken revealing residual basal carcinoma near the 11:00 pole fading down from section B dissection a but still present near the epidermis and the superficial dermis. Stage II: Curette debulking performed from 12:00 to 9:00. Peripheral rim 1/2 to 2 mm taken from 12:00 to 9:00 revealing no residual basal carcinoma. Total stages 2 total sections to final defect approaching 2.0 cm. See photographs Noticed the advancement flap was performed primarily base laterally somewhat medially along the tear trough undermined both directions a minimum of 2 cm medially 4 cm laterally 1 cm superior to the zygomatic arch and 2 cm below. Hemostasis obtained with electrocautery and pressure. Both flaps rotated towards each other. Closed with 4-0 Vicryl and 5-0 Prolene to be removed in 1 week pressure dressing applied. Wound care instructions verbal and written given. I called him that night he had modest pain 4 out of 10 as expected but he wanted pain pills these were sent in discussed GI upset constipation Instructed to call me at any time he has my cell phone number Follow-up in 8 days in [place] Total stages 2 total sections to squared surface area he has 3-1/2 x 6 equaling 18 cm??? on the eyelid/upper cheek Not available 05/02/2022 23:07:51 Plan of Treatment Reminders Order Date Submit Date Provider Last Modified By Organization Details Last Modified Time Details Appointments None recorded . Lab None recorded . Referral None recorded . Procedures None recorded . Surgeries None recorded . Imaging None recorded . Medication Orders oxycodon e-acetam inophen 5 mg-325 mg tablet 022 05/02/20 [email or web address] [id number], [address] [place], [address], 23:07:52 Patient TargetsNo targets recorded. Patient Instructions Encounter Date Encounter Id Patient Instructions Last Modified By Organization Details Last Modified Time 05/01/2022 [id number] acute pain after surgery: care instructions Not available 05/01/2022 21:16:27 Reason for Referral None Reported. Medical Equipment None Reported. Medications Name Sig Start Date Stop Date Status Note LastModified by Organization Details LastModified Time cyclobenzapr ine 10 mg tablet Take 1 tablet (10 mg) by mouth 3 times daily as needed for muscle spasms active Not Available Not Available No t Available amoxicillin 500 mg capsule TAKE 4 CASULES BY MOUTH 30 TO 60 MINUTES BEFORE PROCEDURE active Not Available Not Available No t Available atorvastatin 40 mg tablet TAKE ONE TABLET BY MOUTH ONE TIME DAILY AT BEDTIME active Not Available Not Available N ot Available metformin 500 mg tablet Take 2 tablets (1,000 mg) by mouth daily (with dinner) active Not Available Not Available No t Available ivermectin 3 mg tablet DOSE 5 TABLETS (TAKE WITH OR AFTER A A MEAL) - DAILY FOR FIRST FIVE DAYS active Not Available Not Available No t Available carvedilol 12.5 mg tablet Take 1 tablet (12.5 mg) by mouth 2 times daily (with meals) active Not Available Not Available No t Available lamotrigine 200 mg tablet TAKE ONE TABLET BY MOUTH TWICE DAILY active Not Available Not Available No t Available sildenafil 100 mg tablet TAKE ONE TABLET BY MOUTH EVERY DAY NEEDED active Not Available Not Available No t Available oxycodone-ac etaminophen 5 mg-325 mg tablet Take 1 tablet every 6 hours by oral route. active Not Available Not Available Not Available modafinil 200 mg tablet Take 1-2 tablets by mouth every morning as needed active Not Available Not Available No t Available lisinopril 5 mg tablet TAKE ONE TABLET BY MOUTH TWICE DAILY AT 8-AM AND BEDTIME active Not Available Not Available No t Available Novolog U-100 Insulin aspart 100 unit/mL subcutaneous solution Via insulin pump. Approx 50 units daily. active Not Available Not Available No t Available lamotrigine 100 mg tablet TAKE ONE TABLET BY MOUTH TWICE DAILY. take with 200mg tablets. active Not Available Not Available No t Available Ketostix strips Use to check urine ketones in the event of pump failure or unexplained blood glucoses over 250 and not resolving. active Not Available Not Available N ot Available Novolog FlexPen U-100 Insulin aspart 100 unit/mL (3 mL) subcutaneous Take 1 unit per 15 grams carbohydrat e along with correction of 1 unit for every 50 mg/dL over 150. Average daily use is 20 units daily. active Not Available Not Available No t Available eszopiclone 3 mg tablet Take 0.5-1 tablet by mouth at bedtime do not mix with alcohol or other sedatives active Not Available Not Available No t Available BD Insulin Syringe Ultra-Fine 0.3 mL 30 gauge x 1/2 Use in the event of pump failure and need to administer manual injection. active Not Available Not Available N ot Available Lantus Solostar U-100 Insulin 100 unit/mL (3 mL) subcutaneous pen Inject 8 units subcutaneou sly once daily active Not Available Not Available No t Available BD Ultra-Fine Kirti Pen Needle 32 gauge x Use 4 pen needles daily or as directed. active Not Available Not Available No t Available Eliquis 5 mg tablet Take 1 tablet (5 mg) by mouth 2 times daily active Not Available Not Available Not Available Omnipod Dash Pods (Gen 4) subcutaneous cartridge USE DIRECTED FOR INSULIN DELIVERY. CHANGE PODS DAILY NEEDED. active Not Available Not Available No t Available Baqsimi 3 mg/actuation nasal spray SPRAY 1 APPLICATION INTO NOSTRIL DAILY NEEDED active Not Available Not Available No t Available FreeStyle Audrey 2 Sensor kit REPLACE SENSOR EVERY 14 DAY active Not Available Not Available No t Available FreeStyle Audrey 2 [employer] 1 each once for 1 dose active Not Available Not Available N ot Available Omnipod 5 G6 Pods (Gen 5) subcutaneous cartridge USE DIRECTED FOR CONTINUOUS INSULIN DELIVERY. CHANGE EVERY OTHER DAY . active Not Available Not Available No t Available Omnipod 5 G6 Intro Kit (Gen 5) subcutaneous cartridge with controller USE DIRECTED FOR CONTINUOUS INSULIN DELIVERY. CHANGE EVERY OTHER DAY. active Not Available Not Available No t Available Vitals None Recorded Social History None recorded. Functional Status None recorded. Mental Status None recorded. Family History Nothing Reported. Medical History No medical history recorded. Past Encounters Encounter ID Performer Location Encounter Start Date Encounter Closed Date Diagnosis/Indication Diagnosis SNOMED-CT Code Diagnosis ICD10 Code [id number] Chalino Berrios MD Main Office [facility] [address],[facility] [place] [address] 05/01/2022 12:07:10 05/02/2022 23:08:19 Basal cell carcinoma of lower eyelid 560441687 C44.111 Postoperative pain 62919 9007 G89.18 Health Concerns Section Related Observation LastModified by Organization Detai ls LastModified Time None Recorded Concern Status LastModified by Organization Details LastModified Time None Recorded Advance Directives Directive None Recorded Payers Encounter Date Sequence Insurance Name Policy Number Policy Fisher Covered Member ID Fisher Member ID Guarantor Name 05/01/2022 1 [place] [id number] Santy Glez [id number] Santy Glez Notes Date Note Type Note Provider Name and Address Organization Details Recorded Time 05/01/2022 text/html 61-year-old accompanied by his throughout 80% of visit she does not present for the closure or stage II but does the preoperative discussion and later 1 Past medical history family history and social history unchanged since her prior visit in [place]. He is on blood thinners. Has had a previous brain tumor, and heart valve dysfunction and replacement. Chalino Berrios MD [address] [facility] [place], [address], [facility] 05/02/2022 23:08:08
== END 2024-07-02 08:16 | disposition home or self-care (01) ==
LOC: FRMREF 08:18
PROVIDERS: Visit Provider Nurse Practitioner Family
DX: Z00.00 Encounter for general adult medical examination without abnormal findings (principal); E78.5 Hyperlipidemia, unspecified; E10.9 Type 1 diabetes mellitus without complications; I10 Essential (primary) hypertension; Z12.5 Encounter for screening for malignant neoplasm of prostate
CPT/HCPCS: 80053; 80061; G0103

== ENCOUNTER 2024-10-07 11:28 | Outpatient (CLI) | payer BC, SELFPAY | END 2024-10-07 11:29 | disposition home or self-care (01) | LOC: NFLDREF 10-11 03:12 | PROVIDERS: Visit Provider Nurse Practitioner Family | DX: R53.1 Weakness (principal); R53.83 Other fatigue | CPT/HCPCS: 80053 ==

== ENCOUNTER 2024-11-07 13:50 | Outpatient (CLI) | payer BC, SELFPAY | END 2024-11-07 13:51 | disposition home or self-care (01) | LOC: NFLDREF 11-09 03:54 | PROVIDERS: PCP Nurse Practitioner Family; Visit Provider Nurse Practitioner Family | DX: E10.9 Type 1 diabetes mellitus without complications (principal); E87.1 Hypo-osmolality and hyponatremia | CPT/HCPCS: 80053; 82043; 82570 ==

== ENCOUNTER 2024-11-12 12:06 | Outpatient (CLI) | payer BC, SELFPAY | END 2024-11-12 12:07 | disposition home or self-care (01) | PROVIDERS: PCP Nurse Practitioner Family; Visit Provider Nurse Practitioner Family | DX: E87.1 Hypo-osmolality and hyponatremia (principal); I10 Essential (primary) hypertension | CPT/HCPCS: 80053 ==

== ENCOUNTER 2024-11-25 15:06 | Outpatient (CLI) | payer BC, SELFPAY | END 2024-11-25 15:07 | disposition home or self-care (01) | PROVIDERS: PCP Nurse Practitioner Family; Referring Provider Nurse Practitioner Family; Visit Provider Nurse Practitioner Family | DX: E87.1 Hypo-osmolality and hyponatremia (principal) | CPT/HCPCS: 80053 ==

== ENCOUNTER 2024-12-11 23:44 | Observation (INO) | payer BC, SELFPAY ==
--- OUTSIDE RECORDS SUMMARY | 2024-12-11 23:46 | XMS_ITS | Clinical Summary ---
[facility] Address [address], [place] [address] Care Team Providers Care Beamer Helper Name Role Phone Wilber Vidales MD Primary Care Provider [phone] Source Comments You are receiving this document as you are listed as the primary care provider,follow-up provider, or the patient has been referred to you for consultation.This is in compliance with the Medicare and[facility] EHR Incentive Program,which states Providers who transition their patient to another setting of careor provider of care or refers their patient to another provider of care shouldprovide summary care record for each transition of care or referral. [facility] Allergies Active Allergy Reactions Criticality Noted Date Comments Sulfa Antibiotics Rash 05/09/2021 Medications ELIQUIS 5 MG tablet Take 1 tablet (5 mg) by mouth 2 times daily 1 Active amoxicillin (AMOXIL) 500 MG capsule TAKE 4 CASULES BY MOUTH 30 TO 60 MINUTES BEFORE PROCEDURE 1 Active carvedilol (COREG) 12.5 MG tablet Take 12.5 mg by mouth two times a day with meals. 1 Active Continuous Blood Gluc Sensor (FREESTYLE DAMASO 2 SENSOR) MISC REPLACE SENSOR EVERY 14 DAY 1 Active NOVOLOG FLEXPEN 100 UNIT/ML pen injection INJECT 3 UNITS SUBCUTANEOUSLY WITH EACH MEAL. 1 Active BAQSIMI TWO PACK 3 MG/DOSE nasal powder SPRAY 1 APPLICATION INTO NOSTRIL DAILY NEEDED 1 Active LANTUS SOLOSTAR 100 UNIT/ML pen Inject 10 Units Subcutaneously At Bedtime 1 Active ULTIGUARD SAFEPACK PEN NEEDLE 32G X 4 MM USE 1 EACH DAILY 1 Active lamoTRIgine (LAMICTAL) 100 MG tablet TAKE ONE TABLET BY MOUTH TWICE DAILY. take with 200mg tablets. 1 Active lisinopril (ZESTRIL) 5 MG tablet Take 5 mg by mouth two times a day. 1 Active metFORMIN (GLUCOPHAGE) 500 MG tablet 1 Active modafinil (PROVIGIL) 200 MG tablet TAKE ONE TO TWO TABLETS BY MOUTH EVERY MORNING NEEDED 1 Active ezetimibe (ZETIA) 10 MG tablet Take 1 Tablet (10 mg) by mouth daily. 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 1 09/10/2018 Status post coronary angiogram 06/18/2019 Abnormal findings diagnostic imaging of heart and coronary circulation 06/12/2019 Overview (05/09/2021): Added automatically from request for surgery [id number] ESCALONA (dyspnea on exertion) 04/28/2019 Bilateral carotid artery stenosis 11/21/2016 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, without status epilepticus 11/21/2016 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 JEFERSON (obstructive sleep apnea) 11/21/2016 Chronic lower back pain 09/03/2014 Immunizations Immunization Administration Dates Next Due Influenza, Unspecified Formulation [...] Recorded Sex Assigned at Not on file Legal Sex Male 12:56 PM CDT Gender Identity Not on file Sexual Orientation Not on file Plan of Treatment Health Maintenance Due Date Last Done Comments Colon Cancer Screening Plan Due 1962 Diabetes: Creatinine 1962 Diabetes: Foot Exam 1962 Diabetes: Lipid Panel 1962 Diabetes: Urine Microalbumin 1962 Hep C Screening (Preventive Services) 1962 PSA Screening Discussion 1962 HIV Screening (Preventive Services) 1978 Adult Preventive Visit 1980 Pneumococcal Vaccine 50+ Yrs (1 of 2 - PCV) 1981 Zoster/Shingles Vaccine (2 of 3) 07/30/2017 06/04/2017 COVID-19 Vaccine (1 - 2023- season) 2024 Influenza Vaccine (#1) 2024 , 06/07/2012, 07/16/1995 Diabetes: HGBA1C 10/17/2024 04/18/2024, , 07/19/2023, Additional history exists Diabetes: Eye Exam 06/27/2025 06/27/2024, 1 08/27/2023, 06/15/2023, Additional history exists DTaP/Tdap/Td Vaccine (2 - Tdap) 03/08/2028 03/08/2018, 07/16/1995 RSV Vaccine (1 - 1-dose 75+ series) 2037 HepA Vaccine Aged Out No longer eligi ble based on patient's age to complete this topic HepB Vaccine Aged Out No longer eligi ble based on patient's age to complete this topic Hib Vaccine Aged Out No longer eligi ble based on patient's age to complete this topic IPV (Polio) Vaccine Aged Out No longe r eligible based on patient's age to complete this topic MCV4 Vaccine Aged Out No longer eligi ble based on patient's age to complete this topic Meningococcal B Vaccine Aged Out No l onger eligible based on patient's age to complete this topic Insurance [place] [address] [facility] [place] [place] [address] Care Teams Beamer Helper Relationship Specialty [place] [address] [place] [address] PCP - General Family Practice 04/26/21
--- OUTSIDE RECORDS SUMMARY | 2024-12-11 23:46 | XMS_ITS | Encounter Summary ---
Author Organization [facility] Address [address] [place] [address]. [place] [address] Care Team Providers Care Ventilation Equipment Tender Name Role Phone Wilber Vidales MD Primary Care Provider [phone] Stephie Mahoney MD Unavailable [phone] Federica Foster RN Unavailable [phone] Unavailable [phone] Stephie Mahoney MD Unavailable [phone] Olga Garcia RN Unavailable [phone] Junior Chavira MD Unavailable [phone] Shantel Walker MD Unavailable [phone] Junior Chavira MD Unavailable [phone] Coni Dhaliwal CNP Unavailable [phone] Anel Long NP Unavailable [phone] Reason for Visit * Reason Onset Date Comments Transplant Medication Clarification 12/05/2024 Encounter Details Date Type Department Care Team (Late st Contact Info) Description 12/05/2024 Telephone [facility] [place] [address] [facility] 3rd [place] [address] Olga Garcia, RN Transplant Medication Clarification Social History Tobacco Use Types Packs/Day Years [...] often do you attend chur ch or orthodoxy services? More than 4 times per year [...] PHQ-2 Answer Date Recorded PHQ-2 Score 0 11/14/2024 [facility] - [facility]ational [facility] Questionnaire Answer Date [...] you got money to buy more? No 10/29/2024 Within the past 12 months, d id the food you bought just not last and you didn t have money to get more? No 10/29/2024 Housing Stability Answer Date Recorded Do you have housing? (Nori rodriguez is defined as stable permanent housing and does not include staying outside in a car, in a tent, in an abandoned building, in an overnight custodial, or couch-surfing.) Yes 10/29/2024 Are you worried about losing your housing? No 10/29/2024 Financial Resource Strain Answer Date R ecorded Within the past 12 months, h ave you or your family members you live with been unable to get utilities (heat, electricity) when it was really needed? No 10/29/2024 Transportation Needs Answer Date Record ed Within the past 12 months, h as lack of transportation kept you from medical appointments, getting your medicines, non-medical meetings or appointments, work, or from getting things that you need? No 10/29/2024 Interpersonal Safety Answer Date Record ed Do you feel physically and e motionally safe where you currently live? Yes 10/29/2024 Within the past 12 months, h ave you been hit, slapped, kicked or otherwise physically hurt by someone? No 10/29/2024 Within the past 12 months, h ave you been humiliated or emotionally abused in other ways by your partner or ex-partner? No 10/29/2024 Education Answer Date Recorded What is the highest level of school you have completed or the highest degree you have received? 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 LVM and MyChart message sent. Olga Garcia, RN on 12/05/2024 at 8:26 AM Message Received: Yesterday Stephie Mahoney MD [facility] Triage- Please confirm with pt that he is not on levothyroxine (doesn't look like it) - once confirmed, please let him know that the recent contrast that he received might be a contributing factor - could you have him recheck his labs in the last week of November if that works for him? I have ordered labs documented in this encounter Plan of Treatment Upcoming Encounters Date Type Department Care Team (Late st Contact Info) Description 12/17/2024 9:30 AM CDT Lab [facility] [address] [place] [address] 12/23/2024 4:00 PM CDT Office Visit [facility] [address] [place] [phone] Cyrus Aleman MD [address] [place], [place] [address] 01/27/2025 10:00 AM CDT Office Visit [facility] Neu[facility] [address] [place] [address] 200 [place] [phone] Anel Long, BOAT JOINER HELPER [address] [place], [place] [address] Coni Dhaliwal, COREY [address] [facility] [address] [place], [place] [address] 04/14/2025 11:15 AM CDT Office Visit [facility] [address] [facility] 140 [place] [phone] Inessa Esteves DO [address] [place] [address] 06/05/2025 12:30 PM CDT Office Visit [facility] [address] [phone] Stephie Mahoney MD [address] [place] [address] 11/13/2025 11:00 AM CDT Virtual Visit [facility] [address] [address] Stephie Mahoney MD [address] [place] [address] [phone] documented as of this encounter Visit Diagnoses Not on filedocumented in this encounter Care Teams Ventilation Equipment Tender Relationship Specialty [place] [address] [facility] [place] [address] PCP - General Family Practice 11/21/16 Stephie Mahoney MD [address] [place] [address] Endocrinology, Diabetes, and Metabolism 04/22/21 Federica Foster, RN [address] [place] [address] Balance Bridge Inspector Diabetes Education 04/22/[address] [place] [address] Balance Bridge Inspector Nutrition 04/22/21 Stephie Mahoney MD [address] [place] [address] [phone] Assigned Endocrinology Provider 05/08/21 Olga Garcia, RN Specialty Naphthalene Still Operator INTERNAL MEDICINE - ENDOCRINOLOGY, DIABETES & METABOLISM 09/29/22 Junior Chavira MD [address] [place] [address] Cardiovascular Disease 05/29/24 [place] [address] [place] [address] Assigned PCP 07/12/24 Junior Chavira MD [address] [place] [phone] Assigned Heart and Vascular Provider 08/11/24 Coni Dhaliwal, COREY [address] [place] [phone] Nurse Practitioner Psychiatry & Neurology Vascular Neurology 11/04/24 Anel Long, TARIK [address] [place] [place] [address] Nurse Practitioner Psychiatry & Neurology Vascular Neurology 11/04/24 documented as of this encounter
--- OUTSIDE RECORDS SUMMARY | 2024-12-11 23:46 | XMS_ITS | Encounter Summary ---
Author Organization [place] [facility] Address [address] [place] [address]. [place] [address] Care Team Providers Care Data Analytics Specialist Name Role Phone Wilber Vidales MD Primary Care Provider [phone] Stephie Mahoney MD Unavailable [phone] Federica Foster RN Unavailable [phone] Unavailable [phone] Stephie Mahoney MD Unavailable [phone] Olga Garcia RN Unavailable [phone] Junior Chavira MD Unavailable [phone] Shantel Walker MD Unavailable [phone] Junior Chavira MD Unavailable [phone] Coni Dhaliwal SUPERINTENDENT SALES Unavailable [phone] Anel Long NP Unavailable [phone] Angel Balbuena MD Unavailable [phone] Encounter Details Date Type Department Care Team (Late st Contact Info) Description 12/05/2024 [facility] Endocrinology [place] [id number] [facility] 3rd [place] [address] Olga Garcia RN Social History Tobacco Use Types Packs/Day [...] often do you attend chur ch or church services? 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 200 [place] [phone] Anel Long, WATCH DIAL MAKER [address] [place], [place] [address] Coni Dhaliwal, SUPERINTENDENT SALES [address]345 [facility] 450 [place], [place] [address] 04/14/2025 11:15 AM CDT Office Visit [facility] [address] [facility] [address] [place] [phone] Inessa Esteves DO [address] [facility] [address] [place], [place] [address] 06/05/2025 12:30 PM CDT Office Visit [facility] [address] [phone] Stephie Mahoney MD [address] [address] 11/13/2025 11:00 AM CDT Virtual Visit [facility] [address] [phone] Stephie Mahoney MD [address] [phone] documented as of this encounter Visit Diagnoses Not on filedocumented in this encounter Care Teams Data Analytics Specialist Relationship Specialty [place] [address] [place] [address] PCP - General Family Practice 11/21/16 Stephie Mahoney MD [address] [place] [address] Endocrinology, Diabetes, and Metabolism 04/22/21 Federica Foster, RN [address] [place] [address] [phone] Hot Metal Charger Diabetes Education 04/22/[address] [place] [address] [phone] Hot Metal Charger Nutrition 04/22/21 Stephie Mahoney MD [address] [place] [address] [phone] Assigned Endocrinology Provider 05/08/21 Olga Garcia RN Specialty Tearoom Hostess INTERNAL MEDICINE - ENDOCRINOLOGY, DIABETES & METABOLISM 09/29/22 Junior Chavira MD [address] [place] [address] Cardiovascular Disease 05/29/24 [place] [address] [place] [address] Assigned PCP 07/12/24 Junior Chavira MD [address] [place], [place] [address] Assigned Heart and Vascular Provider 08/11/24 Coni Dhaliwal, COREY [address] [place] 4[address] Nurse Practitioner Psychiatry & Neurology Vascular Neurology 11/04/24 Anel Long NP [address] 238565 Nurse Practitioner Psychiatry & Neurology Vascular Neurology 11/04/24 Angel Balbuena MD [address] [place], [place] [address] Assigned Heart and Vascular Surgical Provider 12/10/24 documented as of this encounter
--- OUTSIDE RECORDS SUMMARY | 2024-12-11 23:47 | XMS_ITS | Clinical Summary ---
Author Organization [facility] Address [address] [place] [address]. [place] [address] Care Team Providers Care Head Of Quality Name Role Phone Wilber Maharaj MD Primary Care Provider [phone] Stephie Mahoney MD Unavailable [phone] Federica Foster RN Unavailable Tova Welch RD Unavailable [phone] Stephie Mahoney MD Unavailable [phone] Olga Garcia RN Unavailable [phone] Junior Chavira MD Unavailable [phone] Shantel Walker MD Unavailable [phone] Junior Chavira MD Unavailable Coni Dhaliwal COMMUNITY HEALTH NAVIGATOR Unavailable [phone] Anel Denson NP Unavailable [phone] Angel Balbuena MD Unavailable [phone] Allergies Active Allergy Reactions Criticality Noted Date Comments Carbamazepine Rash High 02/04/2007 Phenobarbital High 08/22/2001 Phenytoin Rash High 10/05/1999 high fever Procarbazine Rash Low 11/21/2016 Sulfa Antibiotics Rash Low 11/21/2016 Valproic Acid Rash High 08/22/2001 Medications Multiple Vitamins-Mineral s (MENS MULTI VITAMIN & MINERAL PO) Take 1 tablet by mouth daily Active Psyllium (METAMUCIL FIBER PO) Take 1 Dose by mouth daily. Active Melatonin 10 MG TABS tablet Take 10 mg by mouth at bedtime. Active zinc gluconate 50 MG tablet Take [...] D3) 125 mcg (5000 units) capsule Take 125 mcg by mouth daily. Active acetone urine (KETOSTIX) test stripIndications :Type 1 diabetes mellitus with hyperglycemia (H) Use to check urine ketones in the event of pump failure or unexplained blood glucoses over 250 and not resolving. 25 strip 3 Active sildenafil (VIAGRA) 100 MG tabletIndication s:Vasculogenic erectile dysfunction, unspecified vasculogenic erectile dysfunction type Take 1 tablet (100 mg) by mouth daily as needed (30 minutes prior to sexual activity) 12 tablet 11 Active Continuous Glucose Sensor (DEXCOM G7 SENSOR) MISCIndications: Type 1 diabetes mellitus with hyperglycemia (H) Change every 10 days. 9 each 5 Active Insulin Disposable Pump (OMNIPOD 5 G7 PODS, GEN 5,) MISCIndications: Type 1 diabetes mellitus with hyperglycemia (H) 1 pod See Admin Instructions. Change every 3 days 30 each 3 024 Active lisinopril (ZESTRIL) 30 MG tabletIndication s:Benign essential hypertension Take 1 tablet (30 mg) by mouth daily. 90 tablet 1 Active ezetimibe (ZETIA) 10 MG tablet Take 10 mg by mouth every evening. Active acetaminophen (TYLENOL) 325 MG tabletIndication s:RUQ abdominal pain Take 2 tablets (650 mg) by mouth every 4 hours as needed for mild pain or other (and adjunct with moderate or severe pain or per patient request). 025 Active atorvastatin (LIPITOR) 40 MG tabletIndication s:Cerebrovascula r accident (CVA) due to embolism of right middle cerebral artery (H) Take 1 tablet (40 mg) by mouth every evening. 025 Active apixaban ANTICOAGULANT (ELIQUIS) 5 MG tabletIndication s:Ischemic stroke (H) Take 1 tablet (5 mg) by mouth 2 times daily. 180 tablet 1 025 Active metoprolol succinate ER (TOPROL XL) 50 MG 24 hr tabletIndication s:Ischemic stroke (H) Take 1 tablet (50 mg) by mouth 2 times daily. 60 tablet 025 Active magnesium oxide (MAG-OX) 400 MG tabletIndication s:Ischemic stroke (H) Take 1 tablet (400 mg) by mouth daily. Supplement 30 tablet 025 Active oxyCODONE (ROXICODONE) 5 MG tabletIndication s:Ischemic stroke (H) Take 1 tablet (5 mg) by mouth 2 times daily as needed for severe pain. 20 tablet 025 Active metFORMIN (GLUCOPHAGE) 500 MG tabletIndication s:Elevated glucose Take 1 tablet (500 mg) by mouth daily (with dinner). 90 tablet 3 025 Active insulin aspart (NOVOLOG VIAL) 100 UNITS/ML vialIndications: Type 1 diabetes mellitus with hyperglycemia (H) Uses about 80 units in pump daily 90 mL 3 025 Active insulin glargine (LANTUS PEN) 100 UNIT/ML penIndications:T ype 1 diabetes mellitus with hyperglycemia (H) Take 15 units daily if pump fails 15 mL 025 Active metFORMIN (GLUCOPHAGE) 500 MG tabletIndication s:Elevated glucose Take 1 tablet (500 mg) by mouth daily (with dinner) 90 tablet 3 024 2024 Discontinued(R eorder (No AVS)) INSULIN PUMP - OUTPATIENT Inject subcutaneously. Date Last Updated: 10/12/24 Omnipod BASAL RATES and times: Continuous (8292-1407: 0.9 units/hour CARB RATIO and times: 5347-6435: 1 unit for 10g of carbohydrates Corection Factor (Sensitivity) and times: 3847-1774: 1 unit lowers BG by 40 mg/dL BLOOD GLUCOSE TARGET and times: 110 - 120 mg/dL Active Insulin Time: 2.5 hours Sensor: Yes: lower limit = 70 mg/dL, upper limit = 180 mg/dL Changes pump q3d 2024 Discontinued amiodarone (PACERONE) 200 MG tabletIndication s:Paroxysmal atrial fibrillation (H) Take 1 tablet (200 mg) by mouth daily for 14 days. 14 tablet 025 2024 Discontinued(T herapy completed (No AVS)) tiZANidine (ZANAFLEX) 2 MG tabletIndication s:Ischemic stroke (H) Take 1-2 tablets (2-4 mg) by mouth every 8 hours as needed for muscle spasms. 90 tablet 025 2024 insulin glargine (LANTUS PEN) 100 UNIT/ML penIndications:T ype 1 diabetes mellitus with hyperglycemia (H) Take 15 units daily if pump fails 3 mL 1 025 2024 Discontinued(R eorder (No AVS)) Active Problems Problem Noted Date Diagnosed Date Pleural effusion 12/01/2024 Ischemic stroke 10/29/2024 Cerebrovascular accident (CV A) due to embolism of right middle cerebral artery 10/27/2024 Weakness generalized 10/12/2024 RUQ abdominal pain 10/12/2024 Acute respiratory failure with hypoxia Fall, initial encounter 10/12/2024 Pneumonia of both lower lobes due to infectious organism 10/12/2024 History of basal cell carcinoma 07/10/2022 Hyponatremia 03/10/2022 Vasculogenic erectile dysfun ction, unspecified vasculogenic erectile dysfunction type 06/30/2021 Type 1 diabetes mellitus with hyperglycemia 03/21 Benign essential hypertension 11/24/2019 Paroxysmal atrial fibrillation 07/14/2019 Aortic valve replaced 07/14/2019 MCC current use of anticoagulant therapy 1 09/10/2018 Status post coronary angiogram 06/18/2019 Abnormal findings diagnostic imaging of heart and coronary circulation 06/12/2019 Overview (06/12/2019): Added automatically from request for surgery [id number] ESCALONA (dyspnea on exertion) 04/28/2019 History of [...] Encounters Date Type Department Care Team Description 12/09/2024 Telephone [facility] [address] [phone] Rebecca Harvey RN 12/09/2024 MyC Medical Advice [facility] [address] [phone] Rebecca Harvey, RN 12/09/2024 MyC Medical Advice [facility] [address] [phone] Rebecca Harvey, RN 12/09/2024 MyC Medical Advice [facility] [address] [phone] Stephie Mahoney MD 12/09/2024 Telephone [facility] [address] [phone] Stephie Mahoney MD 12/05/2024 [facility] [address] [phone] Stephie Mahoney MD 12/05/2024 MyC Medical Advice [facility] Endocrinology [address] [phone] Olga Garcia, RN 12/05/2024 [facility] [address] [phone] Olga Garcia, line erector apprentice Medication Clarification 12/04/2024 [facility] Endocrinology [address] [phone] Stephie Mahoney MD 12/03/2024 8:15 AM CDT Lab [facility] Laboratory [address] [place] [address] Type 1 diabetes mellitus with hyperglycemia (H) 12/03/2024 Travel 12/01/2024 10:00 AM CDT Oncology Visit [facility] [address] [place] [address] [facility] [place] [phone] Angel Balbuena MD Pleural effusion (Primary Dx) 12/01/2024 [facility] [address] [phone] Stephie Mahoney MD 12/01/2024 [facility] [address] [phone] Stephie Mahoney MD 12/01/2024 Travel 11/30/2024 MyC Medical Advice [facility] Endocrinology [address] [phone] Stephie Mahoney MD 11/28/2024 1:20 PM CDT - 11/28/2024 11:59 PM CDT Hospital Encounter [facility] [address] [place] [phone] Angel Balbuena MD Pneumonia of both lower lobes due to infectious organism Discharge Disposition: Home or Self Care 11/28/2024 Travel 11/26/2024 Travel 11/20/2024 MyC Medical Advice [facility] Endocrinology [address] [phone] Dinah Velazquez 11/20/2024 Telephone [facility] Endocr[facility]ology [address] [phone] Stephie Mahoney MD Insulin Lantusletter mailed out 11/17/2024 Orders Only (auto-released) [place] [address] [facility] [address] [place] [phone] Anle Denson, TARIK 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 of right middle cerebral artery (H) 11/14/2024 11:30 AM CDT Virtual Visit [facility] Endocrinology [address] [phone] Stephie Mahoney MD Type 1 diabetes mellitus with hyperglycemia (H) (Primary Dx); Elevated glucose 11/14/2024 Refill [facility] Endocrinology [address] [phone] Olga Garcia RN Refill Request 11/07/2024 Telephone [facility] [address] [place] [address] Wilber Maharaj MD Home Care/Hospice 11/05/2024 Documentation Only [facility] Anticoagulation [facility] [address] [place] [address] Kevin Marie RN Direct Oral Anticoagulant 11/03/2024 Telephone [facility] [address] [place] [address] Wilber Maharaj MD eliquis oral tablet 5 mg 10/29/2024 2:37 PM CDT - 11/04/2024 1:16 PM CDT Hospital Encounter [facility] [address] [phone] Finn Monroe DO Hsiao, Wei-Han Wayne, MD Ischemic stroke (H) (Primary Dx); 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 of right middle cerebral artery (H) Discharge Disposition: Home-Health Care [facility] 10/28/2024 Orders Only [facility] - Surgical Specialties Service Line [address] [place] [phone] Angel Balbuena MD Pneumonia of both lower lobes due to infectious organism (Primary Dx) 10/20/2024 Telephone [facility] [address] [phone] Stephie Mahoney MD Clinic Care Coordination - Follow-up (Re schedule) 10/20/2024 MyC Medical Advice [facility] Endocrinology [address] [phone] Dinah Velazquez 10/12/2024 10:41 AM CAR USHER - 10/29/2024 2:00 PM CDT Hospital Encounter [facility] [place] [address] [facility] [address] [place] [phone] Wilber Ndiaye MD Padniewski, Jessica, DO Pneumonia of both lower lobes due to infectious organism (Primary Dx); Hyponatremia; Weakness generalized; RUQ abdominal pain; Acute respiratory failure with hypoxia (H); Fall, initial encounter; Type 1 diabetes mellitus with hyperglycemia (H); Paroxysmal atrial fibrillation (H); Drug-induced constipation; 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 of right middle cerebral artery (H) Discharge Disposition: Acute Rehab Facility 10/12/2024 Travel from Last 3 Months Immunizations Name [...] any clubs o r organizations such as uatsdin groups, unions, fraternal or athletic groups, or [...] Answer Date Recorded PHQ-2 Score 0 11/14/2024 [facility] [place] [facility] - Occupational Stress Questionnaire Answer Date [...] in an overnight residential, or couch-surfing.) Yes 10/29/2024 Are you worried [...] AM CDT 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 CAR USHER Gender Identity Male 03/03/2019 9:24 PM CDT Sexual Orientation Straight 03/03/2019 9: 24 PM CDT Last Filed Vital Signs Vital Sign Reading Time Taken Comments Blood Pressure 157/92 12/01/2024 10:05 AM CDT Pulse 67 12/01/2024 10:01 AM CDT Temperature 36.2 C (97.1 F) 12/01/2024 10:01 AM CDT Respiratory Rate 16 12/01/2024 10:01 AM CDT Oxygen Saturation 98% 12/01/2024 10:01 AM CDT Inhaled Oxygen Concentration - - Weight 84.4 kg (186 lb) 12/01/2024 10:01 AM CDT Height 175.3 cm (5' 9) 12/01/2024 10:01 AM CDT Body Mass Index 27.47 12/01/2024 10:01 AM CDT Plan of Treatment Upcoming Encounters Date Type Department Care Team (Late st Contact Info) Description 12/17/2024 9:30 AM CDT Lab [facility] [address] [place] [phone] 12/23/2024 4:00 PM CDT Office Visit [place] [address] [place] [phone] Cyrus Aleman MD [address] [place], [place] [phone] 01/27/2025 10:00 AM CDT Office Visit [facility] Neurology [facility] [address] [place] [phone] Anel Denson, INSTRUCTIONAL TECHNOLOGY COACH [address] [facility] [place] [address] Coni Dhaliwal, COMMUNITY HEALTH NAVIGATOR [address] [place], [place] [address] 04/14/2025 11:15 AM CDT Office Visit [facility] Heart [facility] [address] [place] [phone] Inessa Esteves, [address] [place], [place] [phone] 06/05/2025 12:30 PM CDT Office Visit [facility] [address] [phone] Stephie Mahoney MD [address] [phone] 11/13/2025 11:00 AM CDT Virtual Visit [facility] Endocrinology [address] [phone] Stephie Mahoney MD [address] [address] Health Maintenance Due Date Last Done Comments CT COLONOGRAPHY 1962 FIT 1962 FLEX SIG 1962 sDNA (Cologuard) 1962 Pneumococcal Vaccine: 50+ Years (1 of 2 - PCV) 1981 ZOSTER IMMUNIZATION (3 of 3) 03/21/2021 01/24/2021 (Declined), 06/04/2017 RSV VACCINE (1 - Risk 60-74 years 1-dose series) 2022 DIABETIC FOOT EXAM 07/10/2023 07/10/2022, 04/20/2021 COVID-19 Vaccine (1 - season) 2024 INFLUENZA VACCINE (#1) 2024 , 06/07/2012, 07/16/1995 ANNUAL REVIEW OF HM ORDERS 07/19/2024 07/19/2023, A1C 03/04/2025 12/03/2024, 0 04/2025, 04/18/2024, Additional history exists EYE EXAM 06/28/2025 06/28/2024, 03/2024, 06/18/2023, Additional history exists YEARLY PREVENTIVE VISIT 07/02/2025 07/02/20, 07/19/2023, 07/10/2022, Additional history exists BMP 12/03/2025 12/03/2024, 1 03/2025, 11/03/2024, Additional history exists LIPID 12/03/2025 12/03/2024, 03/22, 07/19/2023, Additional history exists MICROALBUMIN 12/03/2025 12/03/2024, 03/22, 05/05/2022, Additional history exists DTAP/TDAP/TD IMMUNIZATION (2 - Td or Tdap) 03/08/2028 03/08/2018, 07/16/1995 COLONOSCOPY 05/14/2028 05/14/2023, 04/21, 08/20/2012 COLORECTAL CANCER SCREENING 05/14/2028 ADVANCE CARE PLANNING 07/19/2028 07/19/2023, 018 HEPATITIS C SCREENING Completed 11/21/2016 PHQ-2 (once per calendar year) Completed 11/14/2024, 11/23/2023, 03/30/2023, Additional history exists HIV SCREENING Discontinued HPV IMMUNIZATION Aged Out No longer e ligible based on patient's age to complete this topic MENINGITIS IMMUNIZATION Aged Out No l onger eligible based on patient's age to complete this topic URINE DRUG SCREEN Discontinued Medical Devices Implanted Type Area Scales Inspector Device Identifier Shelf Expiration Date Model / Serial / Lot Lead Artirial Pacing Temporary 53cm [id number] Implanted:Qty : 1 on 07/04/2019 by Ej Haines MD at [facility] Leads [employer] Card[employer] Pa [id number] / / Imp Kit Suture Cor-Knot Mini 4x14mm [id number] Implanted:Qty : 1 on 07/04/2019 by Ej Haines MD at [facility] Metallic Hardware/Anc hor [employer] [id number] / / Valve Aortic Perimount Magna-Ease Bioprosth 23mm [id number] Implanted:Qty : 1 on 07/04/2019 by Ej Haines MD at [facility] Valve N/A: Heart [employer] 01/29/2023 [id number] / [id number] / Device Burgess Endo Cor Knot Quick Load Reload [id number] Implanted:Qty : 1 on 07/04/2019 by Ej Haines MD at [facility] Wire [employer] [id number] / / Procedures Procedure Name Priority Date/Time Associated Diagnosis Comments ZIO PATCH MAIL OUT Routine 12/10/2024 9: 20 AM CDT 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 of right middle cerebral artery (H) ALBUMIN RANDOM URINE QUANTITATIVE Routine 12/03/2024 8:41 AM CDT Type 1 diabetes mellitus with hyperglycemia (H) TISSUE TRANSGLUTAMINASE MIKE IGA AND IGG Routine 12/03/2024 8:21 AM CDT Type 1 diabetes mellitus with hyperglycemia (H) HEMOGLOBIN A1C Routine 12/03/2024 8:21 AM CDT Type 1 diabetes mellitus with hyperglycemia (H) BASIC METABOLIC PANEL Routine 12/03/2024 8:21 AM CDT Type 1 diabetes mellitus with hyperglycemia (H) LIPID PROFILE Routine 12/03/2024 8:21 AM CDT Type 1 diabetes mellitus with hyperglycemia (H) TSH Routine 12/03/2024 8:21 AM CDT Type 1 diabetes mellitus with hyperglycemia (H) 25 HYDROXYVITAMIN D2 & D3 Routine 12/03/2024 8:21 AM CDT Type 1 diabetes mellitus with hyperglycemia (H) CT CHEST W CONTRAST Routine 11/28/2024 1 :52 PM CDT Pneumonia of both lower lobes due to infectious organism [place] GLUCOSE MONITOR, 72 HOUR, PHYS INTERP & REPORT Routine 11/14/2024 8:01 PM CDT Type 1 diabetes mellitus with hyperglycemia (H) GLUCOSE BY METER Routine 11/04/2024 7:23 AM CDT EXTRA PURPLE TOP TUBE Routine 11/04/2024 5:48 AM CDT EXTRA TUBE Routine 11/04/2024 5:48 AM CDT BASIC METABOLIC PANEL Routine 11/04/2024 5:48 AM CDT GLUCOSE BY METER Routine 11/04/2024 5:11 AM CDT GLUCOSE BY METER Routine 11/04/2024 2:05 AM CDT GLUCOSE BY METER Routine 11/03/2024 9:03 PM CDT GLUCOSE BY METER Routine 11/03/2024 5:10 PM CDT GLUCOSE BY METER Routine 11/03/2024 12:0 5 PM CDT GLUCOSE BY METER Routine 11/03/2024 7:44 AM CDT MAGNESIUM Routine 11/03/2024 7:40 AM CDT CBC WITH PLATELETS Routine 11/03/2024 7: 40 AM CDT BASIC METABOLIC PANEL Routine 11/03/2024 7:40 AM CDT GLUCOSE BY METER Routine 11/03/2024 5:36 AM CDT GLUCOSE BY METER Routine 11/03/2024 1:58 AM CDT GLUCOSE BY METER Routine 11/02/2024 8:59 PM CDT GLUCOSE BY METER Routine 11/02/2024 5:06 PM CDT GLUCOSE BY METER Routine 11/02/2024 12:1 6 PM CDT GLUCOSE BY METER Routine 11/02/2024 7:26 AM CDT GLUCOSE BY METER Routine 11/02/2024 5:53 AM CDT GLUCOSE BY METER Routine 11/02/2024 2:08 AM CDT GLUCOSE BY METER Routine 11/01/2024 9:54 PM CDT GLUCOSE BY METER Routine 11/01/2024 5:4 4 PM CDT GLUCOSE BY METER Routine 11/01/2024 11:1 6 AM CDT GLUCOSE BY METER Routine 11/01/2024 8:00 AM CDT GLUCOSE BY METER Routine 11/01/2024 6:23 AM CDT GLUCOSE BY METER Routine 11/01/2024 2:05 AM CDT GLUCOSE BY METER Routine 10/31/2024 9:59 PM CDT GLUCOSE BY METER Routine 10/31/2024 5:09 PM CDT GLUCOSE BY METER Routine 10/31/2024 11:5 2 AM CDT GLUCOSE BY METER Routine 10/31/2024 7:35 AM CDT EXTRA PURPLE TOP TUBE Routine 10/31/2024 6:13 AM CDT EXTRA TUBE Routine 10/31/2024 6:13 AM CDT BASIC METABOLIC PANEL Routine 10/31/2024 6:13 AM CDT GLUCOSE BY METER Routine 10/31/2024 5:59 AM CDT GLUCOSE BY METER Routine 10/31/2024 2:21 AM CDT GLUCOSE BY METER Routine 10/30/2024 10:0 5 PM CDT GLUCOSE BY METER Routine 10/30/2024 5:11 PM CDT GLUCOSE BY METER Routine 10/30/2024 11:3 0 AM CDT OSMOLALITY, RANDOM URINE Routine 10/30/2024 11:29 AM CDT SODIUM RANDOM URINE Routine 10/30/2024 1 1:29 AM CDT GLUCOSE BY METER Routine 10/30/2024 11:0 4 AM CDT GLUCOSE BY METER Routine 10/30/2024 7:57 AM CDT GLUCOSE BY METER Routine 10/30/2024 7:15 AM CDT OSMOLALITY Routine 10/30/2024 6:19 AM CDT MAGNESIUM Routine 10/30/2024 6:19 AM CDT CBC WITH PLATELETS Routine 10/30/2024 6: 19 AM CDT BASIC METABOLIC PANEL Routine 10/30/2024 6:19 AM CDT GLUCOSE BY METER Routine 10/30/2024 6:12 AM CDT GLUCOSE BY METER Routine 10/30/2024 2:27 AM CDT GLUCOSE BY METER Routine 10/29/2024 9:51 PM CDT GLUCOSE BY METER Routine 10/29/2024 4:41 PM CDT GLUCOSE BY METER Routine 10/29/2024 1:27 PM CDT GLUCOSE BY METER Routine 10/29/2024 8:32 AM CDT EXTRA PURPLE TOP TUBE Routine 10/29/2024 7:30 AM CDT EXTRA TUBE Routine 10/29/2024 7:30 AM CDT MAGNESIUM Routine 10/29/2024 7:30 AM CDT PHOSPHORUS Routine 10/29/2024 7:30 AM CDT GLUCOSE BY METER Routine 10/29/2024 5:25 AM CDT GLUCOSE BY METER Routine 10/29/2024 1:51 AM CDT GLUCOSE BY METER Routine 10/28/2024 10:0 0 PM CDT GLUCOSE BY METER Routine 10/28/2024 5:18 PM CDT GLUCOSE BY METER Routine 10/28/2024 1:27 PM CDT GLUCOSE BY METER Routine 10/28/2024 8:26 AM CDT POTASSIUM Add-On 10/28/2024 6:18 AM CDT EXTRA PURPLE TOP EDTA (LAB USE ONLY) Routine 10/28/2024 6:18 AM CDT MAGNESIUM Routine 10/28/2024 6:18 AM CDT PHOSPHORUS Routine 10/28/2024 6:18 AM CDT GLUCOSE BY METER Routine 10/28/2024 2:05 AM CDT GLUCOSE BY METER Routine 10/27/2024 9:59 PM CDT GLUCOSE BY METER Routine 10/27/2024 7:07 PM CDT GLUCOSE BY METER Routine 10/27/2024 4:53 PM CDT GLUCOSE BY METER Routine 10/27/2024 2:50 PM CDT CTA HEAD NECK W CONTRAST Today 10/27/2024 2:07 PM CDT ECHO COMPLETE Routine 10/27/2024 1:04 PM CDT GLUCOSE BY METER Routine 10/27/2024 11:1 6 AM CDT GLUCOSE BY METER Routine 10/27/2024 9:07 AM CDT LDL CHOLESTEROL DIRECT Add-On 8:02 AM CDT MAGNESIUM Routine 10/27/2024 8:02 AM CDT PHOSPHORUS Routine 10/27/2024 8:02 AM CDT GLUCOSE BY METER Routine 10/27/2024 1:18 AM CDT GLUCOSE BY METER Routine 10/26/2024 9:02 PM CDT GLUCOSE BY METER Routine 10/26/2024 5:07 PM CDT GLUCOSE BY METER Routine 10/26/2024 12:3 1 PM CDT GLUCOSE BY METER Routine 10/26/2024 8:54 AM CDT HEMOGLOBIN A1C Add-On 10/26/2024 7:13 AM CDT EXTRA PURPLE TOP TUBE Routine 10/26/2024 7:13 AM CDT EXTRA TUBE Routine 10/26/2024 7:13 AM CDT MAGNESIUM Routine 10/26/2024 7:13 AM CDT PHOSPHORUS Routine 10/26/2024 7:13 AM CDT GLUCOSE BY METER Routine 10/26/2024 1:48 AM CAR USHER GLUCOSE BY METER Routine 10/25/2024 9:30 PM CAR USHER GLUCOSE BY METER Routine 10/25/2024 6:10 PM CAR USHER GLUCOSE BY METER Routine 10/25/2024 12:4 1 PM CAR USHER GLUCOSE BY METER Routine 10/25/2024 8:19 AM CAR USHER EXTRA PURPLE TOP TUBE Routine 10/25/2024 7:13 AM CAR USHER EXTRA TUBE Routine 10/25/2024 7:13 AM CAR USHER PHOSPHORUS Routine 10/25/2024 7:13 AM CAR USHER MAGNESIUM Routine 10/25/2024 7:13 AM CAR USHER GLUCOSE BY METER Routine 10/25/2024 1:08 AM CAR USHER GLUCOSE BY METER Routine 10/24/2024 9:19 PM CAR USHER GLUCOSE BY METER Routine 10/24/2024 6:23 PM CAR USHER CRP INFLAMMATION Routine 10/24/2024 1:33 PM CAR USHER GLUCOSE BY METER Routine 10/24/2024 1:0 9 PM CAR USHER GLUCOSE BY METER Routine 10/24/2024 9:41 AM CAR USHER GLUCOSE BY METER Routine 10/24/2024 8:15 AM CAR USHER EXTRA PURPLE TOP EDTA (LAB USE ONLY) Routine 10/24/2024 6:25 AM CAR USHER MAGNESIUM Routine 10/24/2024 6:25 AM CAR USHER PHOSPHORUS Routine 10/24/2024 6:25 AM CAR USHER GLUCOSE BY METER Routine 10/24/2024 6:10 AM CAR USHER GLUCOSE BY METER Routine 10/24/2024 2:11 AM CAR USHER GLUCOSE BY METER Routine 10/23/2024 9:[address] CHEST W/O CONTRAST Routine 10/23/2024 8:29 PM CAR USHER GLUCOSE BY METER Routine 10/23/2024 5:[address] HEAD W/O CONTRAST STAT 10/23/2024 1:38 PM CAR USHER BLOOD GAS VENOUS STAT 10/23/2024 1:04 PM CAR USHER BASIC METABOLIC PANEL STAT 10/23/2024 1:04 PM CAR USHER CBC WITH PLATELETS STAT 10/23/2024 1: 04 PM CAR USHER GLUCOSE BY METER Routine 10/23/2024 12:2 6 PM CAR USHER XR CHEST PORT 1 VIEW STAT 10/23/2024 8:59 AM CAR USHER GLUCOSE BY METER Routine 10/23/2024 8:44 AM CAR USHER EXTRA PURPLE TOP EDTA (LAB USE ONLY) Routine 10/23/2024 6:41 AM CAR USHER PHOSPHORUS Routine 10/23/2024 6:41 AM CAR USHER MAGNESIUM Routine 10/23/2024 6:41 AM CAR USHER GLUCOSE BY METER Routine 10/23/2024 2:08 AM CAR USHER GLUCOSE BY METER Routine 10/22/2024 9:32 PM CAR USHER GLUCOSE BY METER Routine 10/22/2024 4:45 PM CAR USHER PROCALCITONIN Routine 10/22/2024 12:14 PM CAR USHER CRP INFLAMMATION Routine 10/22/2024 12:1 4 PM CAR USHER GLUCOSE BY METER Routine 10/22/2024 12:0 0 PM CAR USHER XR CHEST PORT 1 VIEW Routine 10/22/2024 9:27 AM CAR USHER GLUCOSE BY METER Routine 10/22/2024 8:07 AM CAR USHER CBC WITH PLATELETS Routine 10/22/2024 7: 03 AM CAR USHER BASIC METABOLIC PANEL Routine 10/22/2024 7:03 AM CAR USHER PHOSPHORUS Routine 10/22/2024 7:03 AM CAR USHER MAGNESIUM Routine 10/22/2024 7:03 AM CAR USHER GLUCOSE BY METER Routine 10/22/2024 2:35 AM CAR USHER GLUCOSE BY METER Routine 10/21/2024 9:58 PM CAR USHER GLUCOSE BY METER Routine 10/21/2024 5:26 PM CAR USHER GLUCOSE BY METER Routine 10/21/2024 1:24 PM CAR USHER GLUCOSE BY METER Routine 10/21/2024 9:06 AM CAR USHER PHOSPHORUS Routine 10/21/2024 6:05 AM CAR USHER MAGNESIUM Routine 10/21/2024 6:05 AM CAR USHER GLUCOSE BY METER Routine 10/21/2024 3:40 AM CAR USHER GLUCOSE BY METER Routine 10/21/2024 1:55 AM CAR USHER GLUCOSE BY METER Routine 10/20/2024 9:14 PM CAR USHER GLUCOSE BY METER Routine 10/20/2024 5:2 6 PM CAR USHER EXTRA PURPLE TOP TUBE Routine 10/20/2024 7:15 AM CAR USHER EXTRA TUBE Routine 10/20/2024 7:15 AM CAR USHER MAGNESIUM Routine 10/20/2024 7:15 AM CAR USHER PHOSPHORUS Routine 10/20/2024 7:15 AM CAR USHER GLUCOSE BY METER Routine 10/20/2024 6:00 AM CAR USHER GLUCOSE BY METER Routine 10/20/2024 5:11 AM CAR USHER GLUCOSE BY METER Routine 10/20/2024 2:03 AM CAR USHER GLUCOSE BY METER Routine 10/20/2024 12:3 0 AM CAR USHER GLUCOSE BY METER Routine 10/20/2024 12:0 6 AM CAR USHER GLUCOSE BY METER Routine 10/19/2024 9:06 PM CAR USHER GLUCOSE BY METER Routine 10/19/2024 5:55 PM CAR USHER GLUCOSE BY METER Routine 10/19/2024 11:4 4 AM CAR USHER GLUCOSE BY METER Routine 10/19/2024 8:17 AM CAR USHER XR CHEST PORT 1 VIEW Routine 10/19/2024 8:16 AM CAR USHER EXTRA PURPLE TOP EDTA (LAB USE ONLY) Routine 10/19/2024 6:34 AM CAR USHER PHOSPHORUS Routine 10/19/2024 6:34 AM CAR USHER MAGNESIUM Routine 10/19/2024 6:34 AM CAR USHER CREATININE Routine 10/19/2024 6:34 AM CAR USHER GLUCOSE BY METER Routine 10/19/2024 2:17 AM CAR USHER GLUCOSE BY METER Routine 10/18/2024 9:31 PM CAR USHER GLUCOSE BY METER Routine 10/18/2024 4:40 PM CAR USHER GLUCOSE BY METER Routine 10/18/2024 12:5 7 PM CAR USHER GLUCOSE BY METER Routine 10/18/2024 8:27 AM CAR USHER EXTRA PURPLE TOP EDTA (LAB USE ONLY) Routine 10/18/2024 6:33 AM CAR USHER BASIC METABOLIC PANEL Routine 10/18/2024 6:33 AM CAR USHER PHOSPHORUS Routine 10/18/2024 6:33 AM CAR USHER MAGNESIUM Routine 10/18/2024 6:33 AM CAR USHER GLUCOSE BY METER Routine 10/18/2024 2:15 AM CAR USHER GLUCOSE BY METER Routine 10/17/2024 9:08 PM CAR USHER GLUCOSE BY METER Routine 10/17/2024 5:27 PM CAR USHER XR CHEST PORT 1 VIEW STAT 10/17/2024 3:37 PM CAR USHER GLUCOSE BY METER Routine 10/17/2024 12:4 3 PM CAR USHER GLUCOSE BY METER Routine 10/17/2024 8:25 AM CAR USHER EXTRA PURPLE TOP EDTA (LAB USE ONLY) Routine 10/17/2024 6:53 AM CAR USHER PHOSPHORUS Routine 10/17/2024 6:53 AM CAR USHER MAGNESIUM Routine 10/17/2024 6:53 AM CAR USHER CREATININE Routine 10/17/2024 6:53 AM CAR USHER GLUCOSE BY METER Routine 10/17/2024 2:21 AM CAR USHER GLUCOSE BY METER Routine 10/16/2024 9:42 PM CAR USHER GLUCOSE BY METER Routine 10/16/2024 5:37 PM CAR USHER GLUCOSE BY METER Routine 10/16/2024 12:0 5 PM CAR USHER US CHEST TUBE INSERT Routine 10/16/2024 11:46 AM CAR USHER GLUCOSE BY METER Routine 10/16/2024 8:14 AM CAR USHER PHOSPHORUS Routine 10/16/2024 7:44 AM CAR USHER MAGNESIUM Routine 10/16/2024 7:44 AM CAR USHER CREATININE Routine 10/16/2024 7:44 AM CAR USHER GLUCOSE BY METER Routine 10/16/2024 1:18 AM CAR USHER GLUCOSE BY METER Routine 10/15/2024 9:21 PM CAR USHER GLUCOSE BY METER Routine 10/15/2024 6:[address] CHEST W/O CONTRAST Routine 10/15/2024 3:37 PM CAR USHER MR BRAIN W/O & W CONTRAST Routine 10/15/2024 3:25 PM CAR USHER GLUCOSE BY METER Routine 10/15/2024 11:5 1 AM CAR USHER GLUCOSE BY METER Routine 10/15/2024 8:02 AM CAR USHER GLUCOSE BY METER Routine 10/15/2024 6:40 AM CAR USHER CBC WITH PLATELETS & DIFFERENTIAL Routine 10/15/2024 5:45 AM CAR USHER CBC WITH PLATELETS AND DIFFERENTIAL Routine 10/15/2024 5:45 AM CAR USHER BASIC METABOLIC PANEL Routine 10/15/2024 5:45 AM CAR USHER MAGNESIUM Routine 10/15/2024 5:45 AM CAR USHER PHOSPHORUS Routine 10/15/2024 5:45 AM CAR USHER LACTIC ACID WHOLE BLOOD WITH 1X REPEAT IN 2 HR WHEN >2 STAT 10/15/2024 2:30 AM CAR USHER GLUCOSE BY METER Routine 10/15/2024 2:17 AM CAR USHER EKG 12-LEAD, TRACING ONLY STAT 10/15/2024 1:33 AM CAR USHER GLUCOSE BY METER Routine 10/14/2024 10:0 5 PM CAR USHER GLUCOSE BY METER Routine 10/14/2024 6:11 PM CAR USHER MR LIVER W/O & W CONTRAST Routine 10/14/2024 4:17 PM CAR USHER MRSA MSSA PCR, NASAL SWAB Routine 10/14/2024 1:30 PM CAR USHER GLUCOSE BY METER Routine 10/14/2024 11:3 8 AM CAR USHER US THORACENTESIS Routine 10/14/2024 11:1 3 AM CAR USHER CELL COUNT WITH DIFFERENTIAL FLUID Routine 10/14/2024 11:08 AM CAR USHER AEROBIC BACTERIAL CULTURE ROUTINE Routine 10/14/2024 11:08 AM CAR USHER NON-GYNECOLOGIC CYTOLOGY Routine 10/14/2024 11:08 AM CAR USHER DIFERENTIAL BODY FLUID Routine 11:08 AM CAR USHER CELL COUNT BODY FLUID Routine 10/14/2024 11:08 AM CAR USHER PROTEIN FLUID Routine 10/14/2024 11:08 AM CAR USHER LACTATE DEHYDROGENASE FLUID Routine 10/14/2024 11:08 AM CAR USHER GLUCOSE FLUID Routine 10/14/2024 11:08 AM CAR USHER HEPATIC FUNCTION PANEL Add-On 10:24 AM CAR USHER PROTEIN TOTAL Routine 10/14/2024 10:24 AM CAR USHER LACTATE DEHYDROGENASE Routine 10/14/2024 10:24 AM CAR USHER GLUCOSE BY METER Routine 10/14/2024 8:16 AM CAR USHER CBC WITH PLATELETS & DIFFERENTIAL Routine 10/14/2024 6:06 AM CAR USHER CBC WITH PLATELETS AND DIFFERENTIAL Routine 10/14/2024 6:06 AM CAR USHER BASIC METABOLIC PANEL Routine 10/14/2024 6:06 AM CAR USHER MAGNESIUM Routine 10/14/2024 6:06 AM CAR USHER PHOSPHORUS Routine 10/14/2024 6:06 AM CAR USHER GLUCOSE BY METER Routine 10/14/2024 5:56 AM CAR USHER XR CHEST PORT 1 VIEW STAT 10/14/2024 3:39 AM CAR USHER GLUCOSE BY METER Routine 10/14/2024 2:10 AM CAR USHER GLUCOSE BY METER Routine 10/14/2024 2:05 AM CAR USHER GLUCOSE BY METER Routine 10/13/2024 11:5 6 PM CAR USHER GLUCOSE BY METER Routine 10/13/2024 8:47 PM CAR USHER SODIUM Timed 10/13/2024 7:55 PM CAR USHER SODIUM RANDOM URINE Routine 10/13/2024 6 :45 PM CAR USHER OSMOLALITY, RANDOM URINE Routine 10/13/2024 6:45 PM CAR USHER GLUCOSE BY METER Routine 10/13/2024 5:44 PM CAR USHER GLUCOSE BY METER Routine 10/13/2024 11:4 1 AM CAR USHER GLUCOSE BY METER Routine 10/13/2024 8:40 AM CAR USHER OSMOLALITY Add-On 10/13/2024 7:01 AM CAR USHER PHOSPHORUS Routine 10/13/2024 7:01 AM CAR USHER MAGNESIUM Routine 10/13/2024 7:01 AM CAR USHER CBC WITH PLATELETS Routine 10/13/2024 7: 01 AM CAR USHER COMPREHENSIVE METABOLIC PANEL Routine 10/13/2024 7:01 AM CAR USHER GLUCOSE BY METER Routine 10/13/2024 2:06 AM CAR USHER GLUCOSE BY METER Routine 10/12/2024 9:34 PM CAR USHER GLUCOSE BY METER STAT 10/12/2024 8:19 PM CAR USHER SODIUM STAT 10/12/2024 8:02 PM CAR USHER LEGIONELLA URINARY ANTIGEN AND STREPTOCOCCUS PNEUMONIAE ANTIGEN STAT 10/12/2024 7:29 PM CAR USHER GLUCOSE BY METER STAT 10/12/2024 5:08 PM CAR USHER SODIUM STAT 10/12/2024 3:19 PM CAR USHER TROPONIN T, HIGH SENSITIVITY STAT 10/12/2024 2:16 PM CAR USHER ROUTINE UA WITH MICROSCOPIC STAT 10/12/2024 1:[address] CHEST PE ABDOMEN PELVIS W CONTRAST STAT 10/12/2024 12:[address] HEAD W/O CONTRAST STAT 10/12/2024 12:11 PM CAR USHER BLOOD CULTURE STAT 10/12/2024 11:28 AM CAR USHER EKG 12-LEAD, TRACING ONLY STAT 10/12/2024 11:02 AM CAR USHER ISTAT CREATININE POCT STAT 10/12/2024 11:00 AM CAR USHER ISTAT GASES LACTATE VENOUS POCT STAT 10/12/2024 10:59 AM CAR USHER EXTRA GREEN TOP (LITHIUM HEPARIN) TUBE STAT 10/12/2024 10:56 AM CAR USHER EXTRA RED TOP TUBE STAT 10/12/2024 10 :56 AM CAR USHER EXTRA BLUE TOP TUBE STAT 10/12/2024 1 0:56 AM CAR USHER EXTRA TUBE STAT 10/12/2024 10:56 AM CAR USHER CBC WITH PLATELETS & DIFFERENTIAL STAT 10/12/2024 10:55 AM CAR USHER BLOOD CULTURE STAT 10/12/2024 10:55 AM CAR USHER CBC WITH PLATELETS AND DIFFERENTIAL STAT 10/12/2024 10:55 AM CAR USHER TROPONIN T, HIGH SENSITIVITY STAT 10/12/2024 10:55 AM CAR USHER COMPREHENSIVE METABOLIC PANEL STAT 10/12/2024 10:55 AM CAR USHER INFLUENZA A/B, RSV AND SARS-COV2 PCR STAT 10/12/2024 10:39 AM CAR USHER EKG CARDIAC - HIM SCAN 5 12:00 AM CAR USHER EKG CARDIAC - HIM SCAN 5 12:00 AM CAR USHER EYE EXAM - HIM SCAN Routine 06/28/2024 COLONOSCOPY Routine 05/14/2023 8:14 AM CDT HEPATITIS C ANTIBODY Routine 11/21/2016 7:44 AM CDT Need for hepatitis C screening test from Last 3 Months or Most Recently Relevant to Health Maintenance Results * Albumin Random Urine Quantitative with Creat Ratio (12/03/2024 8:41 AM CDT) Creatinine Urine mg/dL 65.3 mg/dL 12/03/2024 3:26 PM CDT [facility] Comment:The reference ranges have not been established in urine creatinine. The results should be integrated into the clinical context for interpretation. Albumin Urine mg/L <12.0 mg/L 2024 3:26 PM CDT [facility] Comment:The reference ranges have not been established in urine albumin. The results should be integrated into the clinical context for interpretation. Albumin Urine mg/g Cr 12/03/2024 3:26 PM CDT [facility] Comment: Unable to [...] control, and institution of therapy with an shnudqyvcjf-kxmjqqyjos-topwqh (JOANA) inhibitor (if the patient can tolerate it). Urine URINE SPECIMEN / Unknown Non-blood Collection / Unknown 12/03/2024 8:41 AM CDT 12/03/2024 8:41 AM CDT us Stephie Mahoney MD LAB - URINE ORDERABLES Final Result U LABORATORY [facility] [address] [facility], [address] [place] [phone] * 25 Hydroxyvitamin D2 and D3 (12/03/2024 8:21 AM CDT) 25 OH Vitamin D2 <5 ug/L 12/07/19 1:37 PM CDT [facility] 25 OH Vitamin D3 48 ug/L 12/07/19 1:37 PM CDT [facility] 25 OH Vit D Total <53 20 - 75 ug/L 12/06/2024 1:37 PM CDT SPECIAL DRUG/BGEN Comment:Season, race, dietar y intake, and treatment affect the concentration of 84-ffsbpdd-Xjvsfqg D. Values may decrease during winter months and increase during summer months. Values 20-29 ug/L may indicate Vitamin D insufficiency and values <20 ug/L may indicate Vitamin D deficiency. Blood BLOOD SPECIMEN / Unknown Venipuncture / Unknown 12/03/2024 8:21 AM CDT 12/03/2024 8:21 AM CDT Narrative [facility] DRUG/[facility] - 12/06/2024 1:37 PM CDT This test was developed and its performance characteristics determined by the [facility], Special Chemistry Laboratory. It has not been cleared or approved by the FDA. The laboratory is regulated under CLIA as qualified to perform high-complexity testing. This test is used for clinical purposes. It should not be regarded as investigational or for research. us Stephie Mahoney MD LAB - BLOOD ORDERABLES Final Result [facility] DRUG/[facility] Special Drug/BGEN [address] [facility], [address] * (ABNORMAL) TSH (12/03/2024 8:21 AM CDT) TSH 6.21(H) 0.30 - 4.20 uIU/mL 12/03/2024 3:17 PM CDT [facility] Blood BLOOD SPECIMEN / Unknown Venipuncture / Unknown 12/03/2024 8:21 AM CDT 12/03/2024 8:21 AM CDT us Stephie Mahoney MD LAB - BLOOD ORDERABLES Final Result Performing Organization Address City/[facility]/ZIP Co de Phone Number [facility] [address] [place] [address], [address] * Tissue transglutaminase mike IgA and IgG (12/03/2024 8:21 AM CDT) Tissue Transglutaminase Antibody IgA 0.4 <7.0 U/mL 12/04/2024 10:23 AM CDT SPECIALTY CORE/PROT/END O Comment:Negative- The tTG-Ig A assay has limited utility for patients with decreased levels of IgA. Screening for celiac disease should include IgA testing to rule out selective IgA deficiency and to guide selection and interpretation of serological testing. tTG-IgG testing may be positive in celiac disease patients with IgA deficiency. Tissue Transglutaminase Antibody IgG <0.6 <7.0 U/mL 12/04/2024 10:23 AM CDT SPECIALTY CORE/PROT/END O Comment:Negative Blood BLOOD SPECIMEN / Unknown Venipuncture / Unknown 12/03/2024 8:21 AM CDT 12/03/2024 8:21 AM CDT us Stephie Mahoney MD LAB - BLOOD ORDERABLES Final Result SPECIALTY CORE/PROT/ENDO Specialty Core/Prot/Endo [address] [facility] [address], [address] * Lipid Profile (12/03/2024 8:21 AM CDT) Cholesterol 161 <200 mg/dL 12/03/2024 3:17 PM CDT [facility] Triglycerides 43 <150 mg/dL 12/03/2024 3:17 PM CDT [facility] Direct Measure HDL 60 >=40 mg/dL 2024 3:17 PM CDT [facility] LDL Cholesterol Calculated 92 <100 mg/dL 12/03/2024 3:17 PM CDT [facility] Non HDL Cholesterol 101 <130 mg/dL 12/03/2024 3:17 PM CDT [facility] Patient Fasting > 8hrs? Yes 12/03/2024 3:17 PM CDT [facility] Blood BLOOD SPECIMEN / Unknown Venipuncture / Unknown 12/03/2024 8:21 AM CDT 12/03/2024 8:21 AM CDT Narrative [facility] - 12/03/2024 3:17 PM CDT Cholesterol Desirable: < 200 mg/dL Borderline High: 200 - 239 mg/dL High: >= 240 mg/dL Triglycerides Normal: < 150 mg/dL Borderline High: 150 - 199 mg/dL High: 200-499 mg/dL Very High: >= 500 mg/dL Direct Measure HDL Female: >= 50 mg/dL Male: >= 40 mg/dL LDL Cholesterol Desirable: < 100 mg/dL Above Desirable: 100 - 129 mg/dL Borderline High: 130 - 159 mg/dL High: 160 - 189 mg/dL Very High: >= 190 mg/dL Non HDL Cholesterol Desirable: < 130 mg/dL Above Desirable: 130 - 159 mg/dL Borderline High: 160 - 189 mg/dL High: 190 - 219 mg/dL Very High: >= 220 mg/dL us Stephie Mahoney MD LAB - BLOOD ORDERABLES Final Result [facility] [address] [facility], [address] [place] [address], [place] * (ABNORMAL) Hemoglobin A1c (12/03/2024 8:21 AM CDT) Only the most recent of2 resultswithin the time period is included. Pathologist [facility] Estimated Average Glucose 160(H) <117 mg/dL 12/03/2024 8:28 AM CDT LABORATORY Hemoglobin A1C 7.2(H) 0.0 - 5.6 % 12/03/2024 8:28 AM CDT LABORATORY Comment: Normal <5.7% Prediabetes 5.7-6.4% Diabetes 6.5% or higher Note: Adopted from ADA consensus guidelines. Blood BLOOD SPECIMEN / Unknown Venipuncture / Unknown 12/03/2024 8:21 AM CDT 12/03/2024 8:21 AM CDT us Stephie Mahoney MD LAB - BLOOD ORDERABLES Final Result LABORATORY [facility] [address] [facility] (no room number, 1st floor of clinic) [place] [address] * (ABNORMAL) Basic metabolic panel (12/03/2024 8:21 AM CDT) Only the most recent of10 resultswithin the time period is included. Pathologist [facility] Sodium 139 135 - 145 mmol/L 12/03/2024 3:17 PM CDT [facility] Potassium 4.3 3.4 - 5.3 mmol/L 12/03/2024 3:17 PM CDT [facility] Chloride 99 98 - 107 mmol/L 12/03/2024 3:17 PM CDT [facility] Carbon Dioxide (CO2) 31(H) 22 - 29 mmol/L 12/03/2024 3:17 PM CDT [facility] Anion Gap 9 7 - 15 mmol/L 12/03/2024 3:17 PM CDT [facility] Urea Nitrogen 21.9 8.0 - 23.0 mg/dL 12/03/2024 3:17 PM CDT [facility] Creatinine 0.83 0.67 - 1.17 mg/dL 12/03/2024 3:17 PM CDT [facility] GFR Estimate >90 >60 mL/min/1.7 3m2 12/03/2024 3:17 PM CDT [facility] Comment:eGFR calculated 2020 CKD-EPI equation. Calcium 9.4 8.8 - 10.4 mg/dL 12/03/2024 3:17 PM CDT [facility] Glucose 128(H) 70 - 99 mg/dL 12/03/2024 3:17 PM CDT [facility] Patient Fasting > 8hrs? Yes 12/03/2024 3:17 PM CDT [facility] Blood BLOOD SPECIMEN / Unknown Venipuncture / Unknown 12/03/2024 8:21 AM CDT 12/03/2024 8:21 AM CDT us Stephie Mahoney MD LAB - BLOOD ORDERABLES Final Result [facility] [address] [facility], [address] [phone] * CT Chest w Contrast (11/28/2024 1:52 PM CDT) Anatomical Region Laterality Modality Chest, SUBRAD CT BODY, UMP CT CHEST, RAD CT Computed Tomography 11/28/2024 1:52 PM CDT Impressions 12/01/2024 8:30 AM CDT IMPRESSION: 1. Decreased small right pleural effusion. Adjacent consolidative opacities in the right lower lobe likely reflect compressive atelectasis. Superimposed pneumonia cannot be excluded. Round/oval shaped opacity in the right lower lobe with pooling of the adjacent bronchovascular bundles is suspected to evaluate for stability and exclude underlying mass lesion. 2. Enlarging appearance of hypoattenuating masses in the liver. These findings are indeterminant and metastatic disease is in the differential diagnosis. These lesions were also noted on a prior MRI exam from 10/14/2024. Recommend follow-up MRI liver protocol to evaluate for interval change and/or correlation with tissue diagnosis. 3. Partially seen mildly displaced fracture along the left transverse process of L2. 4. Mildly prominent, borderline enlarged mediastinal and right hilar lymph nodes are indeterminant. Suggest attention on [address] chest follow-up exam. Narrative 12/01/2024 8:30 AM CDT EXAM: CT CHEST W CONTRAST LOCATION: [facility] DATE: 11/28/2024 INDICATION: trapped lung COMPARISON: CT chest performed on 10/15/2024 TECHNIQUE: CT chest with IV contrast. Multiplanar reformats were obtained. Dose reduction techniques were used. CONTRAST: 91mL Isovue 370 FINDINGS: LUNGS AND PLEURA: Small right pleural effusion has decreased since the prior exam. Adjacent consolidative opacities are present within the right lower lobe. A round/oval shaped opacity is also seen in the right lower lobe with pulling of the bronchovascular bundles. MEDIASTINUM/AXILLAE: 4 mm hypodense nodule is seen in the left lobe of the thyroid gland. Several mildly prominent lymph nodes are seen in the mediastinum and right hilar regions measuring up to 9 mm along the right hilum (series 2, image 31). Another example includes an 8 8 mm lymph node in the subcarinal space (series 2, image 32). Scattered vascular calcifications are seen in the thoracic aorta. Heart size is mildly enlarged. Aortic valve prosthesis is seen. CORONARY ARTERY CALCIFICATION: Severe. UPPER ABDOMEN: Stable exophytic cyst along the left kidney. Partially seen vascular calcifications in the abdominal aorta. Enlarging appearance of hypoattenuating masses in the liver measuring up to 4.1 cm in the right hepatic lobe, previously 3.5 cm. Another example includes a 2.2 cm hypoattenuating lesion in the right hepatic lobe that previously measured 1.7 cm (series 2, image 51). MUSCULOSKELETAL: Median sternotomy wires are present. Multilevel degenerative changes are seen in the spine. Partially seen mild displaced fracture along the left transverse process of L2. Procedure Note Huma Helm MD - 12/01/2024 EXAM: CT CHEST W CONTRAST LOCATION: [facility] DATE: 11/28/2024 INDICATION: trapped lung COMPARISON: CT chest performed on 10/15/2024 TECHNIQUE: CT chest with IV contrast. Multiplanar reformats were obtained.Dose reduction techniques were used. CONTRAST: 91mL Isovue 370 FINDINGS: LUNGS AND PLEURA: Small right pleural effusion has decreased since theprior exam. Adjacent consolidative opacities are present within the rightlower lobe. A round/oval shaped opacity is also seen in the right lowerlobe with pulling of the bronchovascular bundles. MEDIASTINUM/AXILLAE: 4 mm hypodense nodule is seen in the left lobe of thethyroid gland. Several mildly prominent lymph nodes are seen in themediastinum and right hilar regions measuring up to 9 mm along the righthilum (series 2, image 31). Another example includes an 8 8 mm lymph node in the subcarinal space (series 2,image 32). Scattered vascular calcifications are seen in the thoracicaorta. Heart size is mildly enlarged. Aortic valve prosthesis is seen. CORONARY ARTERY CALCIFICATION: Severe. UPPER ABDOMEN: Stable exophytic cyst along the left kidney. Partially seenvascular calcifications in the abdominal aorta. Enlarging appearance ofhypoattenuating masses in the liver measuring up to 4.1 cm in the righthepatic lobe, previously 3.5 cm. Another example includes a 2.2 cm hypoattenuating lesion in the righthepatic lobe that previously measured 1.7 cm (series 2, image 51). MUSCULOSKELETAL: Median sternotomy wires are present. Multileveldegenerative changes are seen in the spine. Partially seen mild displacedfracture along the left transverse process of L2. IMPRESSION: 1. Decreased small right pleural effusion. Adjacent consolidativeopacities in the right lower lobe likely reflect compressive atelectasis.Superimposed pneumonia cannot be excluded. Round/oval shaped opacity inthe right lower lobe with pooling of the adjacent bronchovascular bundles is suspected to evaluate for stabilityand exclude underlying mass lesion. 2. Enlarging appearance of hypoattenuating masses in the liver. Thesefindings are indeterminant and metastatic disease is in the differentialdiagnosis. These lesions were also noted on a prior MRI exam from10/14/2024. Recommend follow-up MRI liver protocol to evaluate for interval change and/or correlation with tissuediagnosis. 3. Partially seen mildly displaced fracture along the left transverseprocess of L2. 4. Mildly prominent, borderline enlarged mediastinal and right hilarlymph nodes are indeterminant. Suggest attention on [address] chestfollow-up exam. Angel Balbuena MD [facility] ORDERABLES Final Result * (ABNORMAL) Glucose by meter (11/04/2024 7:23 AM CDT) Only the most recent of135 resultswithin the time period is included. GLUCOSE BY METER POCT 162(H) 70 - 99 mg/dL 11/04/2024 7:30 AM CDT UR LAB[facility]ATORY POC Blood, Capillary BLOOD SPECIMEN / Unknown 11/04/2024 7:23 AM CDT 11/04/2024 7:30 AM CDT Finn Monroe DO LAB - BEAKER POCT Final Re sult UR LABORATORY POC [facility] [facility], [address] [place] [address], [facility] * Extra Purple Top Tube (11/04/2024 5:48 AM CDT) Only the most recent of6 resultswithin the time period is included. Hold Specimen JIC 11/04/2024 7:31 AM CDT UR LAB[facility]ATORY Blood STRUCTURE OF RIGHT UPPER LIMB / Unknown Venipuncture / Unknown 11/04/2024 5:48 AM CDT 11/04/2024 6:22 AM CDT Finn Monroe DO LAB - BLOOD ORDERABLES Fin al Result Performing Organization Address City/[facility] Co de Phone Number UR LABORATORY [facility] [address] [place] [address], [address] [phone], [facility] * Magnesium (11/03/2024 7:40 AM CDT) Only the most recent of19 resultswithin the time period is included. Magnesium 1.7 1.7 - 2.3 mg/dL 11/03/2024 8:55 AM CDT UR LAB[facility]ATORY Blood STRUCTURE OF LEFT HAND / Unknown Venipuncture / Unknown 11/03/2024 7:40 AM CDT 11/03/2024 8:15 AM CDT Zee Espana PA-C LAB - BLOOD ORDERABLES F inal Result UR LABORATORY [facility] [address] [place] [address], [address] [place] [address] * (ABNORMAL) CBC with platelets (11/03/2024 7:40 AM CDT) Only the most recent of5 resultswithin the time period is included. WBC Count 3.9(L) 4.0 - 11.0 10e3/uL 11/03/2024 8:24 AM CDT UR LAB[facility]ATORY RBC Count 4.09(L) 4.40 - 5.90 10e6/uL 11/03/2024 8:24 AM CDT UR LAB[facility]ATORY Hemoglobin 12.3(L) 13.3 - 17.7 g/dL 11/03/2024 8:24 AM CDT UR LAB[facility]ATORY Hematocrit 35.1(L) 40.0 - 53.0 % 11/03/2024 8:24 AM CDT UR LAB[facility]ATORY MCV 86 78 - 100 fL 11/03/2024 8:24 AM CDT UR LABORATORY MCH 30.1 26.5 - 33.0 pg 11/03/2024 8:24 AM CDT UR LAB[facility]ATORY MCHC 35.0 31.5 - 36.5 g/dL 11/03/2024 8:24 AM CDT UR LAB[facility]ATORY RDW 12.0 10.0 - 15.0 % 11/03/2024 8:24 AM CDT UR LAB[facility]ATORY Platelet Count 399 150 - 450 10e3/uL 11/03/2024 8:24 AM CDT UR LAB[facility]ATORY Blood BLOOD SPECIMEN / Unknown Venipuncture / Unknown 11/03/2024 7:40 AM CDT 11/03/2024 8:15 AM CDT Zee Espana PA-C LAB - BLOOD ORDERABLES F inal Result UR LABORATORY [facility] [address] [facility], [address] [place] [address] * Sodium random urine (10/30/2024 11:29 AM CDT) Only the most recent of2 resultswithin the time period is included. Sodium Urine mmol/L <20 mmol/L 10/30/2024 12:16 PM CDT UR LABORATORY Comment:The reference ranges have not been established in urine sodium. The results should be integrated into the clinical context for interpretation. Urine URINE SPECIMEN OBTAINED VIA INDWELLING URINARY CATHETER / Unknown Non-blood Collection / Unknown 10/30/2024 11:29 AM CDT 10/30/2024 11:49 AM CDT us Reji To DO LAB - URINE ORDERABLES Final Res ult Performing Organization Address City/[facility]/ZIP Co de Phone Number UR LABORATORY [facility] [address] [place] [address], [place] [id number] [place] [address] * Osmolality urine (10/30/2024 11:29 AM CDT) Only the most recent of2 resultswithin the time period is included. Osmolality Urine 735 100 - 1,200 mmol/kg 10/30/2024 12:08 PM CDT [facility] LAB[facility]AT[facility] Urine URINE SPECIMEN OBTAINED VIA [facility]WELLING URINARY CATHETER / Unknown Non-blood Collection / Unknown 10/30/2024 11:29 AM CDT 10/30/2024 11:49 AM CDT Narrative [facility] LAB[facility]AT[facility] - 10/30/2024 12:08 PM CDT Reference Ranges depend on patient's hydration status and renal function. Neonates: 75-300 mmol/kg 2 years and older, random specimens: 100-1200 mmol/kg; Greater than 850 mmol/kg after 12 hour fluid restriction Urine/serum osmolality ratio: 2 years and older: 1.0-3.0; 3.0-4.7 after 12 hour fluid restriction us Reji To DO LAB - URINE ORDERABLES Final Res ult Performing Organization Address City/[facility]/ZIP Co de Phone Number UR LABORATORY [facility] Lab [address] [place] [address], Room [address] [address], [place] * (ABNORMAL) Osmolality (10/30/2024 6:19 AM CDT) Only the most recent of2 resultswithin the time period is included. Osmolality Blood 273(L) 280 - 301 mmol/kg 10/30/2024 9:22 AM CDT [facility] LAB[facility] Blood BLOOD SPECIMEN / Unknown Venipuncture / Unknown 10/30/2024 6:19 AM CDT 10/30/2024 9:13 AM CDT Narrative [facility] LAB[facility]AT[facility] - 10/30/2024 9:22 AM CDT Greater than 385 mmol/kg relates to stupor in hyperglycemia Greater than 400 mmol/kg can relate to seizures Greater than 420 mmol/kg can be lethal Serum Osmalar Gap: Normal <10 Larger suggest unmeasured substances present in serum (ethanol, methanol, isopropanol, mannitol, ethylene glycol). us Reji Roca DO LAB - BLOOD ORDERABLES Final Res ult UR LABORATORY [facility] [address] [facility], [address] [place] [address], [facility] * Phosphorus (10/29/2024 7:30 AM CDT) Only the most recent of17 resultswithin the time period is included. Phosphorus 3.9 2.5 - 4.5 mg/dL 10/29/2024 8:01 AM CDT [facility]AT[facility] Blood STRUCTURE OF RIGHT UPPER LIMB / Unknown Venipuncture / Unknown 10/29/2024 7:30 AM CDT 10/29/2024 7:34 AM CDT us Nishant Sands MD LAB - BLOOD ORDERABLES Fi nal Result [facility] LABORATORY [facility] Lab [address] Lab (1st floor, no room number) [place] [address], [facility] * Extra Purple Top EDTA (LAB USE ONLY) (10/28/2024 6:18 AM CDT) Only the most recent of6 resultswithin the time period is included. Hold Specimen JIC 10/28/2024 7:31 AM CDT [facility] LAB[facility] Blood BLOOD SPECIMEN / Unknown Venipuncture / Unknown 10/28/2024 6:18 AM CDT 10/28/2024 6:22 AM CDT us Arielle Martel DO LAB - BLOOD ORDERABLES Fin al Result [facility] [address] Lab (1st floor, no room number) [place] [address], [facility] * Potassium (10/28/2024 6:18 AM CDT) Potassium 4.5 3.4 - 5.3 mmol/L 10/28/2024 8:56 AM CDT LABORATORY Blood BLOOD SPECIMEN / Unknown Venipuncture / Unknown 10/28/2024 6:18 AM CDT 10/28/2024 6:22 AM CDT us Al Ian Sands MD LAB - BLOOD ORDERABLES Fi nal Result Performing Organization Address City/[facility]/ZIP Co de Phone Number [facility] [address] Lab (1st floor, no room number) [place] [address], [facility] * CTA Head Neck with Contrast (10/27/2024 2:07 PM CDT) Anatomical Region Laterality Modality Head, SUBRAD CT NEURO, SUBRA D CT NEURO, UMP CT NEURO, RAD CT Computed Tomography 10/27/2024 2:07 PM CDT Impressions 10/27/2024 2:39 PM CDT IMPRESSION: HEAD CTA: 1. No large vessel occlusion. 2. Intracranial atherosclerosis most notably involving the vertebrobasilar system including a-indeterminate occlusion of the hypoplastic left vertebral artery distal to the left PICA origin. See above for details. 3. No aneurysm or high-flow vascular malformation. NECK CTA: 1. Moderate atherosclerotic right vertebral artery origin stenosis. 2. Patent bilateral carotid and hypoplastic left vertebral arteries without hemodynamically significant stenosis or dissection. 3. Nonvascular findings, as described. Narrative 10/27/2024 2:39 PM CDT EXAM: CTA HEAD NECK W CONTRAST LOCATION: [facility] DATE: 10/27/2024 INDICATION: Right frontal infarct; rule out underlying vessel pathology. COMPARISON: CT dated 10/23/2024 and MRI dated 10/15/2024 CONTRAST: 134mL Isovue 370 TECHNIQUE: Head and neck CT angiogram with IV contrast. Axial helical CT images of the head and neck vessels obtained during the arterial phase of intravenous contrast administration. Axial 2D reconstructed images and multiplanar 3D MIP reconstructed images of the head and neck vessels were performed by the technologist. Dose reduction techniques were used. All stenosis measurements made according to NASCET criteria unless otherwise specified. FINDINGS: HEAD CTA: ANTERIOR CIRCULATION: No large vessel occlusion. Mild partially calcified atherosclerotic plaque involving the carotid siphons. Multifocal likely atherosclerotic irregularity involving branches of the bilateral middle and anterior cerebral arteries, most notably involving the A2/A3 right ROD segment as well as M2/M3 segment superior division branches of the right MCA where there are mild-moderate stenoses (for example, series 11 images 33-43 and series 13 image 32, respectively). No aneurysm, or high-flow vascular malformation. Congenitally smaller P1 segments of the posterior cerebral arteries (more so on the left) with patent bilateral posterior communicating arteries. POSTERIOR CIRCULATION: Abrupt loss of contrast opacification involving the hypoplastic left vertebral artery immediately following the left posterior inferior cerebellar artery origin with minimal contrast opacification distally near the vertebrobasilar confluence, likely due to retrograde filling. Moderate long-segment stenosis involving the proximal right vertebral artery immediately distal to the right PICA origin followed by mild-moderate stenosis involving its mid segment and moderate-severe stenoses distally near the vertebrobasilar confluence. Mild-moderate multifocal basilar artery stenoses. Mild multifocal likely atherosclerotic bilateral waste and batting waste chopper stenoses; patent P1-proximal P3 segment branches of the waste and batting waste chopper without high-grade stenosis. No aneurysm or high-flow vascular malformation. DURAL VENOUS SINUSES: Expected enhancement of the major dural venous sinuses. Please note that this exam is not specifically tailored for the assessment of the intracranial venous structures. NECK CTA: RIGHT CAROTID: Moderate partially calcified slightly heterogeneous atherosclerotic plaque at the carotid bifurcation and ICA/ECA origins with mild-moderate ECA origin stenosis. Patent CCA and ICA without hemodynamically-significant stenosis. No dissection. LEFT CAROTID: No hemodynamically significant stenosis or dissection. Mild- moderate predominantly calcified atherosclerotic plaque at the carotid bifurcation and ICA origin. VERTEBRAL ARTERIES: Moderate stenosis at the right vertebral artery origins secondary to partially calcified atherosclerotic plaque, mild on the left. Patent remainder of the bilateral vertebral arteries without focal high-grade stenosis or dissection. A hypoplastic left vertebral artery. AORTIC ARCH: Classic aortic arch anatomy with no significant stenosis at the origin of the great vessels. 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 Exvacuodilatation of the body and frontal horn of the right lateral ventricle. Multilevel spondylosis including moderate interbody degenerative change at C6-C7 without high-grade spinal canal stenosis. Torus mandibularis. Status post median sternotomy and CABG. Diffuse interlobular pulmonary septal thickening, greater on the left where there are patchy groundglass airspace opacities, nonspecific although can be compatible with pulmonary edema in the appropriate clinical setting; pneumonia may contribute to a similar appearance and should be excluded clinically. A partially imaged loculated right pleural effusion with compressive atelectasis. A partially imaged mfton-ydboglwt-oxmmu left pleural effusion without evidence of loculation. Procedure Note Sergio Purvis MD - 10/27/2024 EXAM: CTA HEAD NECK W CONTRAST LOCATION: [facility] DATE: 10/27/2024 INDICATION: Right frontal infarct; rule out underlying vessel pathology. COMPARISON: CT dated 10/23/2024 and MRI dated 10/15/2024 CONTRAST: 134mL Isovue 370 TECHNIQUE: Head and neck CT angiogram with IV contrast. Axial helical CTimages of the head and neck vessels obtained during the arterial phase ofintravenous contrast administration. Axial 2D reconstructed images andmultiplanar 3D MIP reconstructed images of the head and neck vessels were performed by the technologist.Dose reduction techniques were used. All stenosis measurements madeaccording to NASCET criteria unless otherwise specified. FINDINGS: HEAD CTA: ANTERIOR CIRCULATION: No large vessel occlusion. Mild partially calcifiedatherosclerotic plaque involving the carotid siphons. Multifocal likelyatherosclerotic irregularity involving branches of the bilateral middleand anterior cerebral arteries, most notably involving the A2/A3 right ROD segment as well as M2/M3 segmentsuperior division branches of the right MCA where there are mild-moderatestenoses (for example, series 11 images 33-43 and series 13 image 32,respectively). No aneurysm, or high-flow vascular malformation. Congenitally smaller P1 segments of theposterior cerebral arteries (more so on the left) with patent bilateralposterior communicating arteries. POSTERIOR CIRCULATION: Abrupt loss of contrast opacification involving thehypoplastic left vertebral artery immediately following the left posteriorinferior cerebellar artery origin with minimal contrast opacificationdistally near the vertebrobasilar confluence, likely due to retrograde filling. Moderate long-segmentstenosis involving the proximal right vertebral artery immediately distalto the right PICA origin followed by mild-moderate stenosis involving itsmid segment and moderate-severe stenoses distally near the vertebrobasilar confluence. Mild-moderatemultifocal basilar artery stenoses. Mild multifocal likely atheroscleroticbilateral waste and batting waste chopper stenoses; patent P1-proximal P3 segment branches of thePCAs without high-grade stenosis. No aneurysm or high-flow vascular malformation. DURAL VENOUS SINUSES: Expected enhancement of the major dural venoussinuses. Please note that this exam is not specifically tailored for theassessment of the intracranial venous structures. NECK CTA: RIGHT CAROTID: Moderate partially calcified slightly heterogeneousatherosclerotic plaque at the carotid bifurcation and ICA/ECA origins withmild-moderate ECA origin stenosis. Patent CCA and ICA withouthemodynamically-significant stenosis. No dissection. LEFT CAROTID: No hemodynamically significant stenosis or dissection.Mild- moderate predominantly calcified atherosclerotic plaque at thecarotid bifurcation and ICA origin. VERTEBRAL ARTERIES: Moderate stenosis at the right vertebral arteryorigins secondary to partially calcified atherosclerotic plaque, mild onthe left. Patent remainder of the bilateral vertebral arteries withoutfocal high-grade stenosis or dissection. A hypoplastic left vertebral artery. AORTIC ARCH: Classic aortic arch anatomy with no significant stenosis atthe origin of the great vessels. 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 Exvacuodilatation of the body and frontal horn of the right lateral ventricle. Multilevelspondylosis including moderate interbody degenerative change at C6-I4kwxdzqt high-grade spinal canal stenosis. 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 Diffuse interlobular pulmonary septal thickening, greater on the left where thereare patchy groundglass airspace opacities, nonspecific although can becompatible with pulmonary edema in the appropriate clinical setting;pneumonia may contribute to a similar appearance and should be excluded clinically. A partially imaged loculatedright pleural effusion with compressive atelectasis. A partially pykhnossmwk-batovqop-fdoii left pleural effusion without evidence ofloculation. IMPRESSION: HEAD CTA: 1. No large vessel occlusion. 2. Intracranial atherosclerosis most notably involving thevertebrobasilar system including a-indeterminate occlusion of thehypoplastic left vertebral artery distal to the left PICA origin. Seeabove for details. 3. No aneurysm or high-flow vascular malformation. NECK CTA: 1. Moderate atherosclerotic right vertebral artery origin stenosis. 2. Patent bilateral carotid and hypoplastic left vertebral arterieswithout hemodynamically significant stenosis or dissection. 3. Nonvascular findings, as described. us Anel Denson NP IM CT ORDERABLES Final Result * ECHO COMPLETE (10/27/2024 1:04 PM CDT) [facility] LVEF 65-70% CARDIOLOGY RESULTS Anatomical Region Laterality Modality Echocardiography 10/27/2024 12:3 2 PM CDT Narrative 10/27/2024 2:55 PM CDT [id number]^JARETT^ANEL^[facility] Echocardiography Laboratory [address] [place] [id number] Name: ALENA RAE : 1960 Study Date: 10/27/2024 12:32 PM Age: 63 yrs Gender: Male Patient Location: [facility] Reason For Study: CVA Ordering Physician: ANEL DENSON Performed By: Yoni Cintron RDCS BSA: 2.0 m2 Height: 69 in Weight: 193 lb BP: 126/74 mmHg Procedure Complete Echo Adult. Interpretation Summary Status post bioprosthetic aortic valve replacement with with 23-mm Perimount Magna Ease valve, 06/2019. 1. There is a well-seated bioprosthesis in the aortic position. Leaflets are not well-seen. There is trivial paravalvular leak. Mean gradient is 32 mmHg. Acceleration time is 70 ms [normal]. Findings suggest patient -prosthesis mismatch. 2. Normal left ventricular systolic function. Estimated LVEF 65-70%. No regional wall motion abnormalities noted. 3. Normal right ventricular size and systolic function. 4. The ascending aorta is mildly dilated. Compared to the prior study on 07/03/2024, mean gradient across the aortic bioprosthesis is slighly higher (32 vs 27 mmHg). Left Ventricle The left ventricle is normal in size. There is normal left ventricular wall thickness. Left ventricular systolic function is normal. The visual ejection fraction is 65-70%. Diastolic Doppler findings (E/E' ratio and/or other parameters) suggest left ventricular filling pressures are indeterminate. No regional wall motion abnormalities noted. Right Ventricle The right ventricle is normal in size and function. Atria Normal left atrial size. Right atrial size is normal. Mitral Valve The mitral valve leaflets appear normal. There is no evidence of stenosis, fluttering, or prolapse. There is mild (1+) mitral regurgitation. There is no mitral valve stenosis. Tricuspid Valve Normal tricuspid valve. There is trace tricuspid regurgitation. Right ventricular systolic pressure could not be approximated due to inadequate tricuspid regurgitation. Aortic Valve The mean AoV pressure gradient is 30.9 mmHg. There is a bioprosthetic aortic valve. The prosthetic aortic valve is well-seated. Pulmonic Valve There is trace pulmonic valvular regurgitation. Normal pulmonic valve velocity. Vessels The aortic root is normal size. Ascending aorta dilatation is present. 4.2 cm. Small inferior vena cava size consistent with hypovolemia. Pericardium There is no pericardial effusion. Rhythm Sinus rhythm was noted. MMode/2D Measurements & Calculations IVSd: 1.3 cm LVIDd: 4.5 cm LVIDs: 2.3 cm LVPWd: 1.1 cm IVC diam: 2.0 cm FS: 48.2 % LV mass(C)d: 188.1 grams LV mass(C)dI: 92.4 grams/m2 Ao root diam: 3.3 cm LA dimension: 4.6 cm asc Aorta Diam: 4.2 cm LA/Ao: 1.4 LVOT diam: 2.0 cm LVOT area: 3.3 cm2 Ao root diam index Ht(cm/m): 1.9 Ao root diam index BSA (cm/m2): 1.6 Asc Ao diam index BSA (cm/m2): 2.0 Asc Ao diam index Ht(cm/m): 2.4 LA Volume (BP): 64.5 ml LA Volume Index (BP): 31.8 ml/m2 RV Base: 3.0 cm RWT: 0.48 TAPSE: 1.7 cm Time Measurements Aortic HR: 73.8 BPM Doppler Measurements & Calculations MV E max irvin: 122.0 cm/sec MV A max irvin: 61.3 cm/sec MV E/A: 2.0 MV dec slope: 585.2 cm/sec2 MV dec time: 0.21 sec Ao V2 max: 386.6 cm/sec Ao max P.8 mmHg Ao V2 mean: 281.1 cm/sec Ao mean P.9 mmHg Ao V2 VTI: 79.2 cm JAKE(I,D): 1.1 cm2 JAKE(V,D): 0.88 cm2 Ao acc time: 0.07 sec LV V1 max P.3 mmHg LV V1 max: 103.8 cm/sec LV V1 VTI: 26.1 cm CO(LVOT): 6.3 l/min CI(LVOT): 3.1 l/min/m2 SV(LVOT): 85.2 ml SI(LVOT): 41.9 ml/m2 TR max irvin: 290.4 cm/sec TR max P.8 mmHg AV Irvin Ratio (DI): 0.27 JAKE Index (cm2/m2): 0.53 E/E' av.3 Lateral E/e': 8.5 Medial E/e': 18.1 RV S Irvin: 12.8 cm/sec Report approved by: Horacio Hernandez MD on 10/27/2024 02:55 PM Procedure Note Horacio Hernandez MD - 10/27/2024 [id number]^JARETT^ANEL^[facility] Echocardiography Laboratory [address] [place] [address] Name: ALENA RAE : 1960 Study Date: 10/27/2024 12:32 PM Age: 63 yrs Gender: Male Patient Location: [facility] Reason For Study: CVA Ordering Physician: ANEL DENSON Performed By: Yoni Cintron RDCS BSA: 2.0 m2 Height: 69 in Weight: 193 lb BP: 126/74 mmHg Procedure Complete Echo Adult. Interpretation Summary Status post bioprosthetic aortic valve replacement with with 23-mmPerimount Magna Ease valve, 06/2019. 1. There is a well-seated bioprosthesis in the aortic position. Leafletsare not well-seen. There is trivial paravalvular leak. Mean gradient is 32mmHg. Acceleration time is 70 ms [normal]. Findings suggest patient-prosthesis mismatch. 2. Normal left ventricular systolic function. Estimated LVEF 65-70%. No regional wall motion abnormalities noted. 3. Normal right ventricular size and systolic function. 4. The ascending aorta is mildly dilated. Compared to the prior study on 07/03/2024, mean gradient across theaortic bioprosthesis is slighly higher (32 vs 27 mmHg). Left Ventricle The left ventricle is normal in size. There is normal left ventricularwall thickness. Left ventricular systolic function is normal. The visualejection fraction is 65-70%. Diastolic Doppler findings (E/E' ratio and/or other parameters) suggest left ventricular filling pressures are indeterminate.No regional wall motion abnormalities noted. Right Ventricle The right ventricle is normal in size and function. Atria Normal left atrial size. Right atrial size is normal. Mitral Valve The mitral valve leaflets appear normal. There is no evidence ofstenosis, fluttering, or prolapse. There is mild (1+) mitral regurgitation. There isno mitral valve stenosis. Tricuspid Valve Normal tricuspid valve. There is trace tricuspid regurgitation. Right ventricular systolic pressure could not be approximated due toinadequate tricuspid regurgitation. Aortic Valve The mean AoV pressure gradient is 30.9 mmHg. There is a bioprostheticaortic valve. The prosthetic aortic valve is well-seated. Pulmonic Valve There is trace pulmonic valvular regurgitation. Normal pulmonic valve velocity. Vessels The aortic root is normal size. Ascending aorta dilatation is present. 4.2cm. Small inferior vena cava size consistent with hypovolemia. Pericardium There is no pericardial effusion. Rhythm Sinus rhythm was noted. MMode/2D Measurements & Calculations IVSd: 1.3 cm LVIDd: 4.5 cm LVIDs: 2.3 cm LVPWd: 1.1 cm IVC diam: 2.0 cm FS: 48.2 % LV mass(C)d: 188.1 grams LV mass(C)dI: 92.4 grams/m2 Ao root diam: 3.3 cm LA dimension: 4.6 cm asc Aorta Diam: 4.2 cm LA/Ao: 1.4 LVOT diam: 2.0 cm LVOT area: 3.3 cm2 Ao root diam index Ht(cm/m): 1.9 Ao root diam index BSA (cm/m2): 1.6 Asc Ao diam index BSA (cm/m2): 2.0 Asc Ao diam index Ht(cm/m): 2.4 LA Volume (BP): 64.5 ml LA Volume Index (BP): 31.8 ml/m2 RV Base: 3.0 cm RWT: 0.48 TAPSE: 1.7 cm Time Measurements Aortic HR: 73.8 BPM Doppler Measurements & Calculations MV E max irvin: 122.0 cm/sec MV A max irvin: 61.3 cm/sec MV E/A: 2.0 MV dec slope: 585.2 cm/sec2 MV dec time: 0.21 sec Ao V2 max: 386.6 cm/sec Ao max P.8 mmHg Ao V2 mean: 281.1 cm/sec Ao mean P.9 mmHg Ao V2 VTI: 79.2 cm JAKE(I,D): 1.1 cm2 JAKE(V,D): 0.88 cm2 Ao acc time: 0.07 sec LV V1 max P.3 mmHg LV V1 max: 103.8 cm/sec LV V1 VTI: 26.1 cm CO(LVOT): 6.3 l/min CI(LVOT): 3.1 l/min/m2 SV(LVOT): 85.2 ml SI(LVOT): 41.9 ml/m2 TR max irvin: 290.4 cm/sec TR max P.8 mmHg AV Irvin Ratio (DI): 0.27 JAKE Index (cm2/m2): 0.53 E/E' av.3 Lateral E/e': 8.5 Medial E/e': 18.1 RV S Irvin: 12.8 cm/sec Report approved by: Horacio Hernandez MD on 10/27/2024 02:55 PM Anel Denson NP CV ECHO ORDERABLES Edited Resu lt - Final * LDL cholesterol direct (10/27/2024 8:02 AM CDT) LDL Cholesterol Direct 64 <100 mg/dL 10/27/2024 2:59 PM CDT U LABORATORY Comment: Age 2-19 years: Desirable: < 110 mg/dL Borderline High: 110-129 mg/dL High: >= 130 mg/dL Age 20 years and older: Desirable: < 100 mg/dL Above Desirable: 100-129 mg/dL Borderline High: 130-159 mg/dL High: 160-189 mg/dL Very High: >= 190 mg/dL Blood STRUCTURE OF RIGHT UPPER LIMB / Unknown Venipuncture / Unknown 10/27/2024 8:02 AM CDT 10/27/2024 8:20 AM CDT Anel Denson NP LAB - BLOOD ORDERABLES Final R esult [facility] LAB[facility]AT[facility] [address] [facility] [address], [address] [place] [address], [facility] * (ABNORMAL) CRP inflammation (10/24/2024 1:33 PM CAR USHER) Only the most recent of2 resultswithin the time period is included. CRP Inflammation 337.11(H) <5.00 mg/L 10/24/2024 2:09 PM CAR USHER LABORATORY Blood STRUCTURE OF RIGHT UPPER LIMB / Unknown Venipuncture / Unknown 10/24/2024 1:33 PM CAR USHER 10/24/2024 1:45 PM CAR USHER Nima Acosta MD LAB - BLOOD ORDERABLES Final Re sult LABORATORY [facility] Lab [address] [facility] Lab (1st floor, no room number) [place] [address], [facility] * CT Chest w/o Contrast (10/23/2024 8:29 PM CAR USHER) Only the most recent of2 resultswithin the time period is included. Anatomical Region Laterality Modality Chest, SUBRAD CT BODY, UMP CT CHEST, RAD CT Computed Tomography 10/23/2024 8:29 PM CAR USHER Impressions 10/23/2024 9:52 PM CAR USHER IMPRESSION: 1. Decreased right pleural effusion with a small to moderate residual hydropneumothorax. 2. The right chest tube is partially retracted with the proximal half of the retention loop within the chest wall and distal half within the dural space. 3. Stable dense airspace changes within the right lower lobe which may represent pneumonia versus atelectasis. 4. Stable, small left pleural effusion. 5. Stable right hilar adenopathy. 6. Stable indeterminate low-attenuation hepatic lesions, which were better characterized on the previous abdominal MRI from 10/14/2024. Narrative 10/23/2024 9:52 PM CAR USHER EXAM: CT CHEST W/O CONTRAST LOCATION: [facility] DATE: 10/23/2024 INDICATION: follow up R pleural effusion; s p chest tube placement COMPARISON: Chest CT 10/15/2024 TECHNIQUE: CT chest without IV contrast. Multiplanar reformats were obtained. Dose reduction techniques were used. CONTRAST: None. FINDINGS: LUNGS AND PLEURA: Decreased right pleural effusion, which appears loculated with the small to moderate-sized residual hydropneumothorax. The indwelling right-sided chest tube is partially retracted with the distal half of the retention loop within the right pleural space and the proximal half within the right chest wall. Stable, small left pleural effusion. Stable dense airspace changes within the right lower lobe which may represent pneumonia versus atelectasis. Stable moderate airspace changes of the posterior aspect of the left lower lobe. Stable, smooth interlobular septal thickening within the bilateral upper lobes. Moderate amount secretions within the right lower lobe bronchus. MEDIASTINUM/AXILLAE: Right hilar adenopathy appears unchanged. A wireless sales representative lymph node measures 1.4 cm. No new lymphadenopathy. Mild cardiomegaly. Aortic valve replacement. Mild calcified atherosclerotic changes of the thoracic aorta which is mildly dilated measuring 4.2 cm. CORONARY ARTERY CALCIFICATION: Severe. UPPER ABDOMEN: Stable indeterminate low-attenuation hepatic lesions with a dominant, approximately 4.2 cm lesion within the medial aspect of the posterior segment. MUSCULOSKELETAL: Sternotomy. New edematous changes within the right lateral chest wall. Procedure Note Derek Cota MD - 10/23/2024 EXAM: CT CHEST W/O CONTRAST LOCATION: [facility] DATE: 10/23/2024 INDICATION: follow up R pleural effusion; s p chest tube placement COMPARISON: Chest CT 10/15/2024 TECHNIQUE: CT chest without IV contrast. Multiplanar reformats wereobtained. Dose reduction techniques were used. CONTRAST: None. FINDINGS: LUNGS AND PLEURA: Decreased right pleural effusion, which appearsloculated with the small to moderate-sized residual hydropneumothorax. Theindwelling right-sided chest tube is partially retracted with the distalhalf of the retention loop within the right pleural space and the proximal half within the right chest wall.Stable, small left pleural effusion. Stable dense airspace changes withinthe right lower lobe which may represent pneumonia versus atelectasis.Stable moderate airspace changes of the posterior aspect of the left lower lobe. Stable, smooth interlobularseptal thickening within the bilateral upper lobes. Moderate amountsecretions within the right lower lobe bronchus. MEDIASTINUM/AXILLAE: Right hilar adenopathy appears unchanged. Arepresentative lymph node measures 1.4 cm. No new lymphadenopathy. Mildcardiomegaly. Aortic valve replacement. Mild calcified atheroscleroticchanges of the thoracic aorta which is mildly dilated measuring 4.2 cm. CORONARY ARTERY CALCIFICATION: Severe. UPPER ABDOMEN: Stable indeterminate low-attenuation hepatic lesions with adominant, approximately 4.2 cm lesion within the medial aspect of theposterior segment. MUSCULOSKELETAL: Sternotomy. New edematous changes within the rightlateral chest wall. IMPRESSION: 1. Decreased right pleural effusion with a small to moderate residualhydropneumothorax. 2. The right chest tube is partially retracted with the proximal half ofthe retention loop within the chest wall and distal half within the duralspace. 3. Stable dense airspace changes within the right lower lobe which mayrepresent pneumonia versus atelectasis. 4. Stable, small left pleural effusion. 5. Stable right hilar adenopathy. 6. Stable indeterminate low-attenuation hepatic lesions, which werebetter characterized on the previous abdominal MRI from 10/14/2024. us Wilber Torres MD IMG CT ORDERABLES Final R esult * CT Head w/o Contrast (10/23/2024 1:38 PM CAR USHER) Only the most recent of2 resultswithin the time period is included. Anatomical Region Laterality Modality Head, SUBRAD CT NEURO, SUBRA D CT NEURO, UMP CT NEURO, RAD CT Computed Tomography 10/23/2024 1:38 PM CAR USHER Impressions 10/23/2024 1:44 PM CAR USHER IMPRESSION: 1. No acute intracranial abnormality. Narrative 10/23/2024 1:44 PM CAR USHER EXAM: CT HEAD W/O CONTRAST LOCATION: [facility] DATE: 10/23/2024 INDICATION: Confusion, AMS COMPARISON: MRI brain 10/15/2024 TECHNIQUE: Routine CT Head without IV contrast. Multiplanar reformats. Dose reduction techniques were used. FINDINGS: INTRACRANIAL CONTENTS: Unchanged right frontal encephalomalacia with ex active ventricular dilatation. No intracranial hemorrhage, extraaxial collection, or mass effect. No CT evidence of acute infarct. Mild presumed chronic small vessel ischemic changes. VISUALIZED ORBITS/SINUSES/MASTOIDS: No intraorbital abnormality. No paranasal sinus mucosal disease. No middle ear or mastoid effusion. BONES/SOFT TISSUES: No acute abnormality. Procedure Note Sheng Licona MD - 10/23/2024 EXAM: CT HEAD W/O CONTRAST LOCATION: [facility] DATE: 10/23/2024 INDICATION: Confusion, AMS COMPARISON: MRI brain 10/15/2024 TECHNIQUE: Routine CT Head without IV contrast. Multiplanar reformats.Dose reduction techniques were used. FINDINGS: INTRACRANIAL CONTENTS: Unchanged right frontal encephalomalacia with exactive ventricular dilatation. No intracranial hemorrhage, extraaxialcollection, or mass effect. No CT evidence of acute infarct. Mildpresumed chronic small vessel ischemic changes. VISUALIZED ORBITS/SINUSES/MASTOIDS: No intraorbital abnormality. Noparanasal sinus mucosal disease. No middle ear or mastoid effusion. BONES/SOFT TISSUES: No acute abnormality. IMPRESSION: 1. No acute intracranial abnormality. us Wilber Torres MD IMG CT ORDERABLES Final R esult * (ABNORMAL) Blood gas venous (10/23/2024 1:04 PM CAR USHER) pH Venous 7.48(H) 7.32 - 7.43 10/23/2024 1:14 PM CAR USHER [facility] pCO2 Venous 46 40 - 50 mm Hg 10/23/2024 1:14 PM CAR USHER [facility] pO2 Venous 79(H) 25 - 47 mm Hg 10/23/2024 1:14 PM CAR USHER [facility] Bicarbonate Venous 34(H) 21 - 28 mmol/L 10/23/2024 1:14 PM CAR USHER [facility] Base Excess/Deficit Venous 9.1(H) -3.0 - 3.0 mmol/L 10/23/2024 1:14 PM CAR USHER [facility] FIO2 3 YARIEL 10/23/2024 1:14 PM CAR USHER [facility] Oxyhemoglobin Venous 96(H) 70 - 75 % 10/23/2024 1:14 PM CAR USHER [facility] O2 Sat, Venous 97.5(H) 70.0 - 75.0 % 10/23/2024 1:14 PM CAR USHER [facility] Blood, venous STRUCTURE OF LEFT UPPER LIMB / Unknown Venipuncture / Unknown 10/23/2024 1:04 PM CAR USHER 10/23/2024 1:09 PM CAR USHER Narrative LABORATORY - 10/23/2024 1:14 PM CAR USHER In healthy individuals, oxyhemoglobin (O2Hb) and oxygen saturation (SO2) are approximately equal. In the presence of dyshemoglobins, oxyhemoglobin can be considerably lower than oxygen saturation. us Wilber Torres MD LAB - BLOOD ORDERABLES Fi nal Result LABORATORY [facility] [address] Lab (1st floor, no room number) [place] [address], [facility] * XR Chest Port 1 View (10/23/2024 8:59 AM CAR USHER) Only the most recent of5 resultswithin the time period is included. Anatomical Region Laterality Modality Chest Digital Radiogra phy 10/23/2024 8:59 AM CAR USHER Impressions 10/23/2024 9:03 AM CAR USHER IMPRESSION: Right-sided thoracostomy tube is again seen with tip overlying the right lateral lung. Small right pleural effusion is present which appears decreased since the prior exam. Bilateral lower lung consolidative opacities as well as upper to mid lung interstitial opacities are present. These changes appear slightly improved in the right lower lung, unchanged in the left lower lung but worsened elsewhere. Differential diagnosis includes pulmonary edema, multifocal pneumonia or ARDS. Stable cardiomediastinal silhouette. Median sternotomy wires are present. Cardiac valve repair is unchanged. No acute bony abnormality. Narrative 10/23/2024 9:03 AM CAR USHER EXAM: XR CHEST PORT 1 VIEW LOCATION: [facility] DATE: 10/23/2024 INDICATION: pleural effusion, chest tube COMPARISON: 10/22/2024 Procedure Note Huma Helm MD - 10/23/2024 EXAM: XR CHEST PORT 1 VIEW LOCATION: [facility] DATE: 10/23/2024 INDICATION: pleural effusion, chest tube COMPARISON: 10/22/2024 IMPRESSION: Right-sided thoracostomy tube is again seen with tip overlyingthe right lateral lung. Small right pleural effusion is present whichappears decreased since the prior exam. Bilateral lower lung consolidativeopacities as well as upper to mid lung interstitial opacities are present. These changes appear slightlyimproved in the right lower lung, unchanged in the left lower lung butworsened elsewhere. Differential diagnosis includes pulmonary edema,multifocal pneumonia or ARDS. Stable cardiomediastinal silhouette. Median sternotomy wires are present. Cardiacvalve repair is unchanged. No acute bony abnormality. Wilber Torres MD IM DIAGNOSTIC IMAGING OR DERABLES Final Result * Procalcitonin (10/22/2024 12:14 PM CAR USHER) Procalcitonin 0.33 <0.50 ng/mL 10/22/2024 1:06 PM CAR USHER LABORATORY Comment: Interpretation and Recommendations <0.5 ng/mL: Systemic bacterial infection unlikely. Local bacterial infection is possible. 0.5-1.99 ng/mL: Systemic bacterial infection possible, but various other conditions are known to induce PCT as well. >=2.00 ng/mL: Systemic bacterial infection likely, unless other causes are known. Decision to start antibiotics should not be based on procalcitonin level alone. See Procalcitonin Guidance document for more details. [email or web address] Factors that may affect PCT levels (not all-inclusive): - Increased PCT level Severe trauma/johnson Invasive surgery Cooling therapy after cardiac arrest/surgery Treatment with agents which stimulate cytokines Acute kidney injury Chronic kidney disease and end stage renal disease Acute graft vs host disease Non-specific shock causing decreased organ perfusion and/or infarction - Normal or unchanged PCT level Early in infections (if low and infection is suspected, repeating in 6-12 hours is recommended) Chronic infections (endocarditis, osteomyelitis, prosthetic device/graft infections) Localized infections (cellulitis, wound infections, intra-abdominal abscess) Note: PCT has not been extensively studied in /, pediatrics, severe immunosuppression, and cystic fibrosis. Blood STRUCTURE OF RIGHT HAND / Unknown Venipuncture / Unknown 10/22/2024 12:14 PM CAR USHER 10/22/2024 12:31 PM CAR USHER us Nima Acosta MD LAB - BLOOD ORDERABLES Final Re sult Performing Organization Address City/[facility]/ZIP Co de Phone Number [facility] [address] Lab (1st floor, no room number) [place] [id number] * Creatinine (10/19/2024 6:34 AM CAR USHER) Only the most recent of3 resultswithin the time period is included. Creatinine 0.78 0.67 - 1.17 mg/dL 10/19/2024 7:07 AM CAR USHER LABORATORY GFR Estimate >90 >60 mL/min/1.7 3m2 10/19/2024 7:07 AM CAR USHER LABORATORY Comment:eGFR calculated 2020 CKD-EPI equation. Blood STRUCTURE OF RIGHT UPPER LIMB / Unknown Venipuncture / Unknown 10/19/2024 6:34 AM CAR USHER 10/19/2024 6:37 AM CAR USHER Bernardino Garcia MD LAB - BLOOD ORDERABLES Final Result Performing Organization Address [facility]/ZIP Co de Phone Number [facility] [address] [facility] (1st floor, no room number) [place] [address] * US Chest Tube Insert (10/16/2024 11:46 AM CAR USHER) Anatomical Region Laterality Modality Chest Ultrasound 10/16/2024 11:4 6 AM CAR USHER Impressions 10/16/2024 12:07 PM CAR USHER IMPRESSION: Right-sided 10 [place] chest tube placement under ultrasound guidance. Narrative 10/16/2024 12:07 PM CAR USHER PROCEDURE: Ultrasound guided right sided 10 [place] chest tube placement DATE: 10/16/2024 MEDICATIONS: 1% Lidocaine SQ COMPLICATIONS: None HISTORY: Recent viral infection with superimposed pneumonia. Now with loculated effusion. PROCEDURE AND FINDINGS: Following a discussion of the risks, benefits, indications and alternatives to treatment, appropriate informed consent was obtained. The patient was brought to the ultrasound suite and placed in the lateral decubitus position on the table. The right hemithorax was prepped and draped in the usual sterile fashion. A timeout was performed per universal protocol policy to confirm the correct patient, site and procedure to be performed. A preliminary ultrasound was performed to access for the appropriate site to access the pleural effusion. These images reveal a large right pleural effusion and an ultrasound image was archived. Once an appropriate site for chest tube placement was localized, the overlying skin was anesthetized with 1% Lidocaine. Under direct ultrasound guidance, a 5 [place] Yueh needle was advanced into the pleural space via an intercostal approach. The catheter was advanced off of the needle. A 0.035 guidewire was advanced through the micropuncture sheath and the tract was serially dilated. A 10 [place] locking loop chest tube was placed with the tip coiled in the pleural space. The catheter was sutured to the skin using 2-0 silk suture. A sterile dressing was applied. Approximately 20 mL of sero-sanguinous fluid was removed. The chest tube was connected to a Pleur- evac device in the interventional suite. Throughout the procedure, the patient was monitored by a radiology nurse for cardiac rhythm and oxygen saturation which remained stable. The patient tolerated the procedure well and left interventional radiology in stable condition. Procedure Note Shantel Corral, DO - 10/16/2024 PROCEDURE: Ultrasound guided right sided 10 [place] Ze[place]ander chest tube placement DATE: 10/16/2024 MEDICATIONS: 1% Lidocaine SQ COMPLICATIONS: None HISTORY: Recent viral infection with superimposed pneumonia. Now withloculated effusion. PROCEDURE AND FINDINGS: Following a discussion of the risks, benefits, indications andalternatives to treatment, appropriate informed consent was obtained. Thepatient was brought to the ultrasound suite and placed in the lateraldecubitus position on the table. The right hemithorax was prepped and draped in the usual sterile fashion. A timeoutwas performed per universal protocol policy to confirm the correctpatient, site and procedure to be performed. A preliminary ultrasound was performed to access for the appropriate siteto access the pleural effusion. These images reveal a large right pleuraleffusion and an ultrasound image was archived. Once an appropriate site for chest tube placement was localized, theoverlying skin was anesthetized with 1% Lidocaine. Under direct ultrasoundguidance, a 5 [place] Yueh needle was advanced into the pleural space viaan intercostal approach. The catheter was advanced off of the needle. A 0.035 guidewire was advanced throughthe micropuncture sheath and the tract was serially dilated. A 10 Frenchlocking loop chest tube was placed with the tip coiled in the pleuralspace. The catheter was sutured to the skin using 2-0 silk suture. A sterile dressing was applied.Approximately 20 mL of sero-sanguinous fluid was removed. The chest tubewas connected to a Pleur-evac device in the interventional suite. Throughout the procedure, the patient was monitored by a radiology nursefor cardiac rhythm and oxygen saturation which remained stable. Thepatient tolerated the procedure well and left interventional radiology instable condition. IMPRESSION: Right-sided 10 [place] Ze[place]ander chest tube placement under ultrasound guidance. us Kayla Baca MD IMG US ORDERABLES Final Result * MR Brain w/o & w Contrast (10/15/2024 3:25 PM CAR USHER) Anatomical Region Laterality Modality Head, SUBRAD MR NEURO, UMP MR NEURO, RAD MR Magnetic Resonance 10/15/2024 3:25 PM CAR USHER Impressions 10/17/2024 2:27 PM CAR USHER IMPRESSION: 1. Interval development of 1 cm linear focus of restricted diffusion posterior to the right frontal resection cavity. Differential considerations include acute ischemia, posttreatment change, or recurrence. Recommend continued radiographic follow-up. 2. Otherwise similar appearance of the right frontal resection cavity. Narrative 10/17/2024 2:27 PM CAR USHER EXAM: MR BRAIN W/O and W CONTRAST LOCATION: [facility] DATE: 10/15/2024 INDICATION: h o right astrocytoma with resection. some recrudescence of left sided weakness. Eval for stroke or hemmorrhage. COMPARISON: CT head 10/12/2024, MRI brain 11/07/2023 CONTRAST: 8mL Gadavist TECHNIQUE: Routine multiplanar multisequence head MRI without and with intravenous contrast. FINDINGS: INTRACRANIAL CONTENTS: Redemonstrated are postsurgical changes of right frontal craniotomy for tumor resection. Grossly similar appearing right frontal convexity resection cavity without suspicious nodular contrast enhancement. Surrounding nonenhancing FLAIR hyperintensity appears grossly similar to prior. There is persistent ex vacuo dilation of the right frontal horn, unchanged. Negative for hydrocephalus. Interval development of 1 cm linear focus of restricted diffusion immediately posterior to the resection cavity without associated contrast enhancement. This may represent small focus of acute ischemia, posttreatment change, or recurrence. No acute hemorrhage or extra-axial fluid collections. Normal position of the cerebellar tonsils. SELLA: No abnormality accounting for technique. OSSEOUS STRUCTURES/SOFT TISSUES: Normal marrow signal. The major intracranial vascular flow voids are maintained. ORBITS: No abnormality accounting for technique. SINUSES/MASTOIDS: No paranasal sinus mucosal disease. No middle ear or mastoid effusion. Procedure Note Cyrus Sewell MD - 10/17/2024 EXAM: MR BRAIN W/O and W CONTRAST LOCATION: [facility] DATE: 10/15/2024 INDICATION: h o right astrocytoma with resection. some recrudescence ofleft sided weakness. Eval for stroke or hemmorrhage. COMPARISON: CT head 10/12/2024, MRI brain 11/07/2023 CONTRAST: 8mL Gadavist TECHNIQUE: Routine multiplanar multisequence head MRI without and withintravenous contrast. FINDINGS: INTRACRANIAL CONTENTS: Redemonstrated are postsurgical changes of rightfrontal craniotomy for tumor resection. Grossly similar appearing rightfrontal convexity resection cavity without suspicious nodular contrastenhancement. Surrounding nonenhancing FLAIR hyperintensity appears grossly similar to prior. There is persistentex vacuo dilation of the right frontal horn, unchanged. Negative forhydrocephalus. Interval development of 1 cm linear focus of restricteddiffusion immediately posterior to the resection cavity without associated contrast enhancement. This mayrepresent small focus of acute ischemia, posttreatment change, orrecurrence. No acute hemorrhage or extra-axial fluid collections. Normalposition of the cerebellar tonsils. SELLA: No abnormality accounting for technique. OSSEOUS STRUCTURES/SOFT TISSUES: Normal marrow signal. The majorintracranial vascular flow voids are maintained. ORBITS: No abnormality accounting for technique. SINUSES/MASTOIDS: No paranasal sinus mucosal disease. No middle ear ormastoid effusion. IMPRESSION: 1. Interval development of 1 cm linear focus of restricted diffusionposterior to the right frontal resection cavity. Differentialconsiderations include acute ischemia, posttreatment change, orrecurrence. Recommend continued radiographic follow-up. 2. Otherwise similar appearance of the right frontal resection cavity. us Bernardino Garcia MD IMG MRI ORDERABLES Final Res ult * (ABNORMAL) CBC with platelets and differential (10/15/2024 5:45 AM CAR USHER) Only the most recent of3 resultswithin the time period is included. WBC Count 10.7 4.0 - 11.0 10e3/uL 10/15/2024 5:53 AM CAR USHER [facility] RBC Count 4.26(L) 4.40 - 5.90 10e6/uL 10/15/2024 5:53 AM CAR USHER [facility] Hemoglobin 12.9(L) 13.3 - 17.7 g/dL 10/15/2024 5:53 AM CAR USHER [facility] Hematocrit 37.1(L) 40.0 - 53.0 % 10/15/2024 5:53 AM CAR USHER [facility] MCV 87 78 - 100 fL 10/15/2024 5:53 AM CAR USHER [facility] MCH 30.3 26.5 - 33.0 pg 10/15/2024 5:53 AM CAR USHER [facility] MCHC 34.8 31.5 - 36.5 g/dL 10/15/2024 5:53 AM CAR USHER [facility] RDW 12.1 10.0 - 15.0 % 10/15/2024 5:53 AM CAR USHER [facility] Platelet Count 240 150 - 450 10e3/uL 10/15/2024 5:53 AM CAR USHER [facility] % Neutrophils 79 % 10/15/2024 5:53 AM CAR USHER [facility] % Lymphocytes 8 % 10/15/2024 5:53 AM CAR USHER [facility] % Monocytes 11 % 10/15/2024 5:53 AM CAR USHER [facility] % Eosinophils 2 % 10/15/2024 5:53 AM CAR USHER [facility] % Basophils 0 % 10/15/2024 5:53 AM CAR USHER [facility] % Immature Granulocytes 0 % 10/15/2024 5:53 AM CAR USHER [facility] NRBCs per 100 WBC 0 <1 /100 025 5:53 AM CAR USHER [facility] Absolute Neutrophils 8.4(H) 1.6 - 8.3 10e3/uL 10/15/2024 5:53 AM CAR USHER [facility] Absolute Lymphocytes 0.8 0.8 - 5.3 10e3/uL 10/15/2024 5:53 AM CAR USHER [facility] Absolute Monocytes 1.2 0.0 - 1.3 10e3/uL 10/15/2024 5:53 AM CAR USHER [facility] Absolute Eosinophils 0.2 0.0 - 0.7 10e3/uL 10/15/2024 5:53 AM CAR USHER [facility] Absolute Basophils 0.0 0.0 - 0.2 10e3/uL 10/15/2024 5:53 AM CAR USHER [facility] Absolute Immature Granulocytes 0.0 <=0.4 10e3/uL 10/15/2024 5:53 AM CAR USHER [facility] Absolute NRBCs 0.0 10e3/uL 10/15/2024 5:53 AM CAR USHER [facility] Blood STRUCTURE OF LEFT HAND / Unknown Venipuncture / Unknown 10/15/2024 5:45 AM CAR USHER 10/15/2024 5:51 AM CAR USHER Ortiz Chew MD LAB - BLOOD ORDERABLES Final Result [facility] [address] Lab (1st floor, no room number) [address] * Lactic Acid Whole Blood w/ 1x repeat in 2 hrs when >2 (10/15/2024 2:30 AM CAR USHER) Pathologist [facility] Lactic Acid, Initial 1.5 0.7 - 2.0 mmol/L 10/15/2024 2:39 AM CAR USHER [facility] Blood STRUCTURE OF LEFT HAND / Unknown Venipuncture / Unknown 10/15/2024 2:30 AM CAR USHER 10/15/2024 2:37 AM CAR USHER Ortiz Chew MD LAB - BLOOD ORDERABLES Final Result [facility] [address] Lab (1st floor, no room number) [address] * EKG 12-lead, tracing only (10/15/2024 1:33 AM CAR USHER) Only the most recent of2 resultswithin the time period is included. Systolic Blood Pressure mmHg RADIOLOGY RESULTS Diastolic Blood Pressure mmHg RADIOLOGY RESULTS Ventricular Rate 146 BPM RAD IOLOGY RESULTS Atrial Rate 192 BPM RADIOLOG Y RESULTS [place] Interval ms RADIOLOG Y RESULTS QRS Duration 108 ms RADIOLO GY RESULTS QT 318 ms RADIOLOGY RESULTS QTc 495 ms RADIOLOGY RESULTS [place] degrees RADIOLOGY RESULTS R AXIS 9 degrees RADIOLOGY RESULTS [place] 79 degrees RADIOLOGY RESULTS Interpretation ECG Atrial fibrillation with rapid ventricular response Incomplete right bundle branch block ST depression, consider subendocardial injury Abnormal ECG Confirmed by CAROLYNE BURTON ([id number]) on 10/15/2024 3:06:01 PM RADIOLOGY RESULTS 10/15/2024 1:33 AM CAR USHER 10/15/2024 3:06 PM CAR USHER us Horacio Galan MD ECG ORDERABLES Edited R esult - Final RADIOLOGY RESULTS * MR Liver wo & w Contrast (10/14/2024 4:17 PM CAR USHER) Anatomical Region Laterality Modality Abdomen/Pelvis, SUBRAD MR BODY, UMP MR BODY, RAD MR Magnetic Resonance 10/14/2024 4:17 PM CAR USHER Impressions 10/14/2024 4:33 PM CAR USHER IMPRESSION: 1. Multifocal indeterminate lesions in the liver. These do not have T2 characteristics of simple cysts. Differential includes metastatic disease, among other considerations. Recommend biopsy of the largest lesion in the posterior right lobe of the liver. 2. Abnormal findings requiring follow-up. Narrative 10/14/2024 4:33 PM CAR USHER EXAM: MR LIVER W/O and W CONTRAST LOCATION: [facility] DATE: 10/14/2024 INDICATION: lesions seen on CT COMPARISON: None. TECHNIQUE: Routine MRI liver protocol including T1 in/out phase, diffusion, multiplane T2, and dynamic T1 with IV contrast. CONTRAST: 9 mL Gadavist FINDINGS: LIVER: Multifocal indeterminate lesions are noted, there may be some delayed internal enhancement on 3 minute imaging. Largest individual lesion is in the posterior right lobe measuring 3.8 cm. These do not have T2 characteristics of simple cysts. Liver normal in size and configuration. ADDITIONAL FINDINGS: No significant findings in the gallbladder, spleen, pancreas, kidneys, and adrenal glands. No lymphadenopathy. No ascites. Procedure Note Zaki Sandoval MD - 10/14/2024 EXAM: MR LIVER W/O and W CONTRAST LOCATION: [facility] DATE: 10/14/2024 INDICATION: lesions seen on CT COMPARISON: None. TECHNIQUE: Routine MRI liver protocol including T1 in/out phase,diffusion, multiplane T2, and dynamic T1 with IV contrast. CONTRAST: 9 mL Gadavist FINDINGS: LIVER: Multifocal indeterminate lesions are noted, there may be somedelayed internal enhancement on 3 minute imaging. Largest individuallesion is in the posterior right lobe measuring 3.8 cm. These do not haveT2 characteristics of simple cysts. Liver normal in size and configuration. ADDITIONAL FINDINGS: No significant findings in the gallbladder, spleen,pancreas, kidneys, and adrenal glands. No lymphadenopathy. No ascites. IMPRESSION: 1. Multifocal indeterminate lesions in the liver. These do not have [id number] of simple cysts. Differential includes metastatic disease,among other considerations. Recommend biopsy of the largest lesion in theposterior right lobe of the liver. 2. Abnormal findings requiring follow-up. Ortiz Chew MD [facility] MRI ORDERABLES Final Resu lt * MRSA MSSA PCR, Nasal Swab (10/14/2024 1:30 PM CAR USHER) MRSA Target DNA Negative Negative 10/14/2024 5:06 PM CAR USHER [facility] SA Target DNA Positive 10/14/2024 5:06 PM CAR USHER [facility] Swab BOTH ANTERIOR NARES / Unknown Non-blood Collection / Unknown 10/14/2024 1:30 PM CAR USHER 10/14/2024 1:36 PM CAR USHER Narrative [facility] - 10/14/2024 5:06 PM CAR USHER The [employer] Egg Xpert SA Nasal Complete assay performed in the [employer] D[employer] System is a qualitative in vitro diagnostic test designed for rapid detection of Staphylococcus aureus (SA) and methicillin-resistant Staphylococcus aureus (MRSA) from nasal swabs in patients at risk for nasal colonization. The test utilizes automated real-time polymerase chain reaction (PCR) to detect MRSA/SA DNA. The Xpert SA Nasal Complete assay is intended to aid in the prevention and control of MRSA/SA infections in healthcare settings. The assay is not intended to diagnose, guide or monitor treatment for MRSA/SA infections, or provide results of susceptibility to methicillin. A negative result does not preclude MRSA/SA nasal colonization. us Ortiz Chew MD LAB - MICRO GENERAL ORDERABLE S Final Result [facility] Inf. Diseases Diag. Lab [address] [place] [address] * US Thoracentesis (10/14/2024 11:13 AM CAR USHER) Anatomical Region Laterality Modality Chest Ultrasound 10/14/2024 11:1 3 AM CAR USHER Impressions 10/14/2024 3:20 PM CAR USHER IMPRESSION: Status post right ultrasound-guided thoracentesis. Reference CPT Code: 39563 Narrative 10/14/2024 3:20 PM CAR USHER EXAM: 1. RIGHT THORACENTESIS 2. ULTRASOUND GUIDANCE LOCATION: [facility] DATE: 10/14/2024 INDICATION: Pleural effusion. PROCEDURE: Informed consent obtained. Time out performed. The chest was prepped and draped in sterile fashion. 10 mL of 1 % lidocaine was infused into the local soft tissues. Under direct ultrasound guidance, a 5 [place] Ze[place]ander catheter system was placed into the pleural effusion. 0.1 liters of clear yellow fluid were removed and sent to lab, if requested. Patient tolerated procedure well. Ultrasound imaging was obtained and placed in the patient's permanent medical record. Procedure Note Kojo Dent MD - 10/14/2024 EXAM: 1. RIGHT THORACENTESIS 2. ULTRASOUND GUIDANCE LOCATION: [facility] DATE: 10/14/2024 INDICATION: Pleural effusion. PROCEDURE: Informed consent obtained. Time out performed. The chest wasprepped and draped in sterile fashion. 10 mL of 1 % lidocaine was infusedinto the local soft tissues. Under direct ultrasound guidance, a 5 Frenchcatheter system was placed into the pleural effusion. 0.1 liters of clear yellow fluid were removed and sent to lab, ifrequested. Patient tolerated procedure well. Ultrasound imaging was obtained and placed in the patient's permanentmedical record. IMPRESSION: Status post right ultrasound-guided thoracentesis. Reference CPT Code: 39280 Ortiz Chew MD [facility] US ORDERABLES Final Resul t * Differential Body Fluid (10/14/2024 11:08 AM CAR USHER) % Neutrophils 97 % [facility] 10/14/2024 1:41 PM CAR USHER [facility] % Lymphocytes 0 % YARIEL 10/14/2024 1:41 PM CAR USHER [facility] % Monocyte/Macroph ages 3 % [facility] 10/14/2024 1:41 PM CAR USHER [facility] Pleural fluid RIGHT LUNG STRUCTURE / Unknown Non-blood Collection / Unknown 10/14/2024 11:08 AM CAR USHER 10/14/2024 11:20 AM CAR USHER Narrative [facility] - 10/14/2024 1:41 PM CAR USHER No reference ranges have been established. This result should be interpreted in the context of the patient's clinical condition and compared to simultaneous measurement in the patient's blood. Result [facility] Ortiz Chew MD LAB - BODY FLUIDS ORDERABLES Final Result [facility] Lab [address] Lab (1st floor, no room number) [place] [address], [facility] * (ABNORMAL) Cell Count Body Fluid (10/14/2024 11:08 AM CAR USHER) Color Yellow Colorless, Yellow [facility] 10/14/2024 1:40 PM CAR US[facility] LABORATORY Clarity Turbid(A) Clear [facility] 10/14/2024 1:40 PM CAR [facility] LABORATORY Cell Count Fluid Source Pleural Cavity, Right 10/14/2024 1:40 PM CAR USHER [facility] Total Nucleated Cells 12,185 /uL [facility] 10/14/2024 1:40 PM [facility] Pleural fluid RIGHT LUNG STRUCTURE / Unknown Non-blood Collection / Unknown 10/14/2024 11:08 AM CAR USHER 10/14/2024 11:20 AM CAR USHER Narrative [facility] - 10/14/2024 1:40 PM CAR USHER No reference ranges have been established. This result should be interpreted in the context of the patient's clinical condition and compared to simultaneous measurement in the patient's blood. Small clot present, count may be inaccurate. Ortiz Chew MD LAB - BODY FLUIDS ORDERABLES Final Result LABORATORY [facility] Acute Care Lab [address] Lab (1st floor, no room number) [place] [address], [place] * Cytology, non-gynecologic (10/14/2024 11:08 AM CAR USHER) Final Diagnosis Specimen A. Pleural fluid for cytology: Interpretation: Negative for malignancy Other Findings: Acute inflammation present. Adequacy: Satisfactory for evaluation 10/16/2024 3:40 PM [facility] Clinical Information 63 year old male 10/16/2024 3:40 PM [facility] Gross Description A(A). Pleural Cavity, Right, :A. Pleural Cavity, Right, , Pleural Fluid: Received 50 ml of hazy, yellow fluid, processed as 1 Pap stained Autocyte, 1 Lopez stained cytospin and one hematoxylin and eosin stained cell block. 10/16/2024 3:40 PM [facility] Microscopic Description Microscopic examination is performed with findings supportive of the diagnosis as noted. 10/16/2024 3:40 PM [facility] Performing Labs The technical component of this testing was completed at [facility]. Stain controls for all stains resulted within this report have been reviewed and show appropriate reactivity. 10/16/2024 3:40 PM [facility] Pleural fluid STRUCTURE OF RIGHT PLEURAL CAVITY / Unknown Non-blood Collection / Unknown 10/14/2024 11:08 AM CAR USHER 10/14/2024 11:19 AM CAR USHER Comment:Collect pleural flui d when Thoracentesis procedure performed Specimen must be collected in a Sterile - Plastic Leak proof lab container. Ortiz Chew MD LAB - BEAKER AP Final Result LABORATORY [facility] Acute Care Lab [address] 1[address] floor, [address] [place] [address], [place] [phone] SPECIALTY LABS Specialty Lab [address], [address] [place] [address] * Pleural fluid Aerobic Bacterial Culture Routine With Gram Stain (10/14/2024 11:08 AM CAR USHER) Culture No Growth 10/19/2024 7:17 AM CAR USHER [facility] Gram Stain Result No organisms seen 10/19/2024 7:17 AM CAR USHER [facility] Gram Stain Result 4+ WBC seen 10/19/2024 7:17 AM CAR USHER [facility] Pleural fluid RIGHT LUNG STRUCTURE / Unknown Non-blood Collection / Unknown 10/14/2024 11:08 AM CAR USHER 10/14/2024 11:35 AM CAR USHER Narrative [facility] - 10/19/2024 7:17 AM CAR USHER Gram Stain quantification of host cells and microbiological organisms was done on a cytocentrifuged preparation. Ortiz Chew MD LAB - MICRO GENERAL ORDERABLE S Final Result [facility] Inf. Diseases Diag. Lab [address], [address] [place] [id number] * Protein fluid (10/14/2024 11:08 AM CAR USHER) Protein Fluid Source Pleural Cavity, Right 10/14/2024 12:01 PM CAR USHER [facility] Protein Total Fluid 3.0 g/dL 10/14/2024 12:01 PM CAR USHER [facility] Other STRUCTURE OF RIGHT PLEURAL CAVITY / Unknown Non-blood Collection / Unknown 10/14/2024 11:08 AM CAR USHER 10/14/2024 11:20 AM CAR USHER Narrative [facility] - 10/14/2024 12:01 PM CAR USHER No reference ranges have been established. This result should be interpreted in the context of the patient's clinical condition and compared to simultaneous measurement in the patient's blood. This is a lab developed test. It has not been cleared or approved by the FDA. FDA clearance is not required for clinical use. Ortiz Chew MD LAB - BODY FLUIDS ORDERABLES Final Result [facility] Lab [address] Lab (1st floor, no room number) [place] [address] * Lactate dehydrogenase fluid (10/14/2024 11:08 AM CAR USHER) LD Fluid Source Pleural Cavity, Right 10/14/2024 12:01 PM CAR USHER [facility] Lactate dehydrogenase fluid 904 U/L 10/14/2024 12:01 PM CAR USHER [facility] Other STRUCTURE OF RIGHT PLEURAL CAVITY / Unknown Non-blood Collection / Unknown 10/14/2024 11:08 AM CAR USHER 10/14/2024 11:20 AM CAR USHER Narrative [facility] - 10/14/2024 12:01 PM CAR USHER No reference ranges have been established. This result should be interpreted in the context of the patient's clinical condition and compared to simultaneous measurement in the patient's blood. This is a lab developed test. It has not been cleared or approved by the FDA. FDA clearance is not required for clinical use. Ortiz Chew MD LAB - BODY FLUIDS ORDERABLES Final Result Performing Organization Address City/[facility]/ZIP Co de Phone Number [facility] Lab [address] Lab (1st floor, no room number) [place] [address] * Glucose fluid (10/14/2024 11:08 AM CAR USHER) Glucose Fluid Source Pleural Cavity, Right 10/14/2024 12:01 PM CAR USHER [facility] Glucose fluid 205 mg/dL 10/14/2024 12:01 PM CAR USHER [facility] Other STRUCTURE OF RIGHT PLEURAL CAVITY / Unknown Non-blood Collection / Unknown 10/14/2024 11:08 AM CAR USHER 10/14/2024 11:20 AM CAR USHER Narrative [facility] - 10/14/2024 12:01 PM CAR USHER No reference ranges have been established. This result should be interpreted in the context of the patient's clinical condition and compared to simultaneous measurement in the patient's blood. This is a lab developed test. It has not been cleared or approved by the FDA. FDA clearance is not required for clinical use. Ortiz Chew MD LAB - BODY FLUIDS ORDERABLES Final Result Performing Organization Address City/[facility]/ZIP Co de Phone Number [facility] [address] Lab (1st floor, no room number) [address] [place] [address] * Lactate Dehydrogenase (10/14/2024 10:24 AM CAR USHER) Lactate Dehydrogenase 165 0 - 250 U/L 10/14/2024 11:08 AM CAR USHER LABORATORY Blood STRUCTURE OF LEFT HAND / Unknown Venipuncture / Unknown 10/14/2024 10:24 AM CAR USHER 10/14/2024 10:34 AM CAR USHER Ortiz Chew MD LAB - BLOOD ORDERABLES Final Result Performing Organization Address [facility] Co de Phone Number [facility] [address] Lab (1st floor, no room number) [place] [phone] [place] [address] * (ABNORMAL) Protein total (10/14/2024 10:24 AM CAR USHER) Protein Total 5.8(L) 6.4 - 8.3 g/dL 10/14/2024 11:08 AM CAR USHER LABORATORY Blood STRUCTURE OF LEFT HAND / Unknown Venipuncture / Unknown 10/14/2024 10:24 AM CAR USHER 10/14/2024 10:34 AM CAR USHER Ortiz Chew MD LAB - BLOOD ORDERABLES Final Result Performing Organization Address City/[facility]/ZIP Co de Phone Number [facility] [address] Lab (1st floor, no room number) [place] [phone] [place] [address] * (ABNORMAL) Hepatic panel (10/14/2024 10:24 AM CAR USHER) Protein Total 5.8(L) 6.4 - 8.3 g/dL 10/14/2024 12:49 PM CAR USHER LABORATORY Albumin 2.9(L) 3.5 - 5.2 g/dL 10/14/2024 12:49 PM CAR USHER LABORATORY Bilirubin Total 0.4 <=1.2 mg/dL 10/14/2024 12:49 PM CAR USHER LABORATORY Alkaline Phosphatase 108 40 - 150 U/L 10/14/2024 12:49 PM CAR USHER LABORATORY AST 17 0 - 45 U/L 10/14/2024 12:49 PM CAR USHER LABORATORY ALT 20 0 - 70 U/L 10/14/2024 12:49 PM CAR USHER [facility]ORAT[facility] Bilirubin Direct 0.18 0.00 - 0.30 mg/dL 10/14/2024 12:49 PM CAR USHER LABORATORY Blood STRUCTURE OF LEFT HAND / Unknown Venipuncture / Unknown 10/14/2024 10:24 AM CAR USHER 10/14/2024 10:34 AM CAR USHER us Ortiz Chew MD LAB - BLOOD ORDERABLES Final Result [facility] [address] Lab (1st floor, no room number) [place] [address] * (ABNORMAL) Sodium (10/13/2024 7:55 PM CAR USHER) Only the most recent of3 resultswithin the time period is included. Sodium 126(L) 135 - 145 mmol/L 10/13/2024 8:30 PM CAR USHER LABORATORY Blood STRUCTURE OF LEFT HAND / Unknown Venipuncture / Unknown 10/13/2024 7:55 PM CAR USHER 10/13/2024 8:03 PM CAR USHER us Tiarra Smalls PA-C LAB - BLOOD ORDERABLES F inal Result [facility] [address] Lab (1st floor, no room number) [place] [address] * (ABNORMAL) Comprehensive metabolic panel (10/13/2024 7:01 AM CAR USHER) Only the most recent of2 resultswithin the time period is included. Sodium 126(L) 135 - 145 mmol/L 10/13/2024 7:28 AM [facility] Potassium 4.4 3.4 - 5.3 mmol/L 10/13/2024 7:28 AM [facility] Carbon Dioxide (CO2) 24 22 - 29 mmol/L 10/13/2024 7:28 AM [facility] Anion Gap 11 7 - 15 mmol/L 10/13/2024 7:28 AM [facility] Urea Nitrogen 24.7(H) 8.0 - 23.0 mg/dL 10/13/2024 7:28 AM [facility] Creatinine 0.80 0.67 - 1.17 mg/dL 10/13/2024 7:28 AM [facility] GFR Estimate >90 >60 mL/min/1.7 3m2 10/13/2024 7:28 AM [facility] Comment:eGFR calculated us2020 CKD-EPI equation. Calcium 8.9 8.8 - 10.4 mg/dL 10/13/2024 7:28 AM [facility] Chloride 91(L) 98 - 107 mmol/L 10/13/2024 7:28 AM [facility] Glucose 318(H) 70 - 99 mg/dL 10/13/2024 7:28 AM [facility] Alkaline Phosphatase 95 40 - 150 U/L 10/13/2024 7:28 AM [facility] AST 18 0 - 45 U/L 10/13/2024 7:28 AM [facility] ALT 20 0 - 70 U/L 10/13/2024 7:28 AM [facility] Protein Total 5.9(L) 6.4 - 8.3 g/dL 10/13/2024 7:28 AM [facility] Albumin 3.3(L) 3.5 - 5.2 g/dL 10/13/2024 7:28 AM [facility] Bilirubin Total 0.8 <=1.2 mg/dL 10/13/2024 7:28 AM [facility] Blood STRUCTURE OF LEFT HAND / Unknown Venipuncture / Unknown 10/13/2024 7:01 AM CAR USHER 10/13/2024 7:07 AM [facility] Arielle Martel DO LAB - BLOOD ORDERABLES Fin al Result LABORATORY [facility] Acute Care Lab [address] [facility] Lab (1st floor, no room number) [place] [address], [facility] * Legionella Urinary Antigen and Streptococcus pneumoniae antigen (10/12/2024 7:29 PM CAR USHER) Legionella pneumophila serogroup 1 urinary antigen Negative Negative YARIEL 10/13/2024 12:56 AM CAR USHER [facility] Comment:A negative result do es not exclude the possibility of a Legionella infection, as it can be caused by other serogroups and species of Legionella. Streptococcus pneumoniae antigen Negative Negative YARIEL 10/13/2024 12:56 AM CAR USHER [facility] Comment:A negative result do es not exclude a Streptococcus pneumoniae infection. Legionella pneumophila Urinary/Strep pneumoniae Antigen Specimen Type Urine 10/13/2024 12:56 AM CAR USHER [facility] Urine URINE SPECIMEN OBTAINED BY CLEAN CATCH PROCEDURE / Unknown Non-blood Collection / Unknown 10/12/2024 7:29 PM CAR USHER 10/12/2024 7:36 PM CAR USHER Narrative [facility] - 10/13/2024 12:56 AM CAR USHER The result of this test as well as culture, serology, or other antigen detection methods should be used in conjunction with clinical findings to make an accurate diagnosis. The result of this test as well as culture, serology, or other antigen detection methods should be used in conjunction with clinical findings to make an accurate diagnosis. Arielle Martel DO LAB - MICRO GENERAL ORDERA BLES Final Result [facility] Inf. Diseases Diag. Lab [address] [place] [address], [facility] * Troponin T, High Sensitivity (10/12/2024 2:16 PM CAR USHER) Only the most recent of2 resultswithin the time period is included. Troponin T, High Sensitivity 14 <=22 ng/L 10/12/2024 2:42 PM CAR US[facility]ORATORY Comment: Either a High Sensitivity Troponin T baseline (0 hours) value = 100 ng/L, or an increase in High Sensitivity Troponin T = 7 ng/L at 2 hours compared to 0 hours (2-0 hours), suggests myocardial injury, and urgent clinical attention is required. If the 2-0 hours increase is <7 ng/L, a High Sensitivity Troponin T result above gender-specific reference ranges warrants further evaluation. Recommendations for further evaluation include correlation with clinical decision-making tool (e.g., HEART), a 3rd High Sensitivity Troponin T test 2 hours after the 2nd (a 20% change from baseline would represent concern), admission for observation, close PCC/cardiology follow-up, or urgent outpatient provocative testing. Blood STRUCTURE OF LEFT UPPER LIMB / Unknown Venipuncture / Unknown 10/12/2024 2:16 PM CAR USHER 10/12/2024 2:20 PM CAR USHER us Wilber Ndiaye MD LAB - BLOOD ORDERABLES Final Res ult LABORATORY [facility] Acute Care Lab [address] Lab (1st floor, no room number) [place] [address], [facility] * (ABNORMAL) UA with Microscopic (10/12/2024 1:50 PM CAR USHER) Color Urine Yellow Colorless, Straw, Light Yellow, Yellow 10/12/2024 2:10 PM CAR USHER LABORATORY Appearance Urine Clear Clear 10/12/19 25 2:10 PM CAR USHER LABORATORY Glucose Urine 150(A) Negative mg/dL 10/12/2024 2:10 PM CAR USHER LABORATORY Bilirubin Urine Negative Negative 2:10 PM CAR USHER LABORATORY Ketones Urine Trace(A) Negative mg/dL 10/12/2024 2:10 PM CAR USHER LABORATORY Specific [place] Urine 1.010 1.003 - 1.035 10/12/2024 2:10 PM CAR USHER LABORATORY Blood Urine Negative Negative 10/12/2024 2:10 PM CAR USHER LABORATORY pH Urine 6.0 5.0 - 7.0 10/12/2024 2:10 PM CAR USHER [facility]ORATORY Protein Albumin Urine 30(A) Negative mg/dL 10/12/2024 2:10 PM CAR US[facility] Urobilinogen Urine Normal Normal, 2.0 mg/dL 10/12/2024 2:10 PM [facility] Nitrite Urine Negative Negative 10/12/2024 2:10 PM [facility]OR[facility] Leukocyte Esterase Urine Negative Negative 10/12/2024 2:10 PM CAR US[facility]ORY Mucus Urine Present(A) None Seen /LPF 10/12/2024 2:10 PM CAR USHER LABORATORY RBC Urine 1 <=2 /HPF 10/12/2024 2:10 PM CAR USHER LABORATORY WBC Urine 4 <=5 /HPF 10/12/2024 2:10 PM CAR USHER LABORATORY Squamous Epithelials Urine <1 <=1 /HPF 10/12/2024 2:10 PM CAR US[facility]ORATORY Urine MID-STREAM URINE SPECIMEN / Unknown Non-blood Collection / Unknown 10/12/2024 1:50 PM CAR USHER 10/12/2024 1:57 PM CAR USHER us Wilber Ndiaye MD LAB - URINE ORDERABLES Final Res ult [facility] Lab [address] Lab (1st floor, no room number) [place] [address], [facility] * CT Chest (PE) Abdomen Pelvis w Contrast (10/12/2024 12:19 PM CAR USHER) Anatomical Region Laterality Modality Chest, SUBRAD CT BODY, UMP CT CHEST, RAD CT Computed Tomography 10/12/2024 12:1 9 PM CAR USHER Impressions 10/12/2024 2:10 PM CAR USHER IMPRESSION: 1. No pulmonary embolism. 2. Large consolidation at the right lung base with bilateral patchy airspace opacity within the lower lobes concerning for pneumonia. 3. Multiple low-attenuation lesions are noted within the liver which are indeterminant although cyst or metastatic disease. Further workup is suggested. Narrative 10/12/2024 2:10 PM CAR USHER EXAM: CT CHEST PE ABDOMEN PELVIS W CONTRAST LOCATION: [facility] DATE: 10/12/2024 INDICATION: Right inferior chest wall pain, RUQ abd pain, concern for PE vs rib fractures vs PNA vs cholecystitis vs septic etiolgies COMPARISON: None. TECHNIQUE: CT chest pulmonary angiogram and routine CT abdomen pelvis with IV contrast. Arterial phase through the chest and venous phase through the abdomen and pelvis. Multiplanar reformats and MIP reconstructions were performed. Dose reduction techniques were used. CONTRAST: 98mL Isovue 370 FINDINGS: ANGIOGRAM CHEST: The pulmonary arteries enlarged measuring 3.7 cm suggesting pulmonary arterial hypertension. Thoracic aorta is negative for dissection. No CT evidence of right heart strain. LUNGS AND PLEURA: Trace right effusion. Large consolidation noted within the right lower lobe with bilateral patchy airspace opacities bilaterally. Bronchial wall thickening predominantly at the lung bases. MEDIASTINUM/AXILLAE: Heart is moderately enlarged. No mediastinal, axillary, or hilar adenopathy. CORONARY ARTERY CALCIFICATION: Moderate. HEPATOBILIARY: 4 x 3.3 cm ill-defined low-attenuation mass within segment 7 of the liver. 3.2 x 2.2 cm mass noted within the caudate. 1.6 x 1 cm mass noted at the dome of the liver. 1.9 x 1.2 cm low-attenuation lesion noted within the superior dome of the liver within segment 7. Few additional smaller low-attenuation lesions are noted within the liver. Findings are concerning for liver metastases. Gallbladder decompressed. PANCREAS: Normal. SPLEEN: Normal. ADRENAL GLANDS: Normal. KIDNEYS/BLADDER: Small cyst at the superior pole of the left kidney which is benign and needs no further follow-up. Kidneys are otherwise unremarkable with no evidence of hydronephrosis. BOWEL: Diverticulosis of the colon. No acute inflammatory change. No obstruction. LYMPH NODES: Normal. VASCULATURE: Moderate atherosclerotic disease of the abdominal aorta. PELVIC ORGANS: Bladder within normal limits. Trace fluid within the pelvis. MUSCULOSKELETAL: Degenerative changes of the spine. Procedure Note Herb Kent MD - 10/12/2024 EXAM: CT CHEST PE ABDOMEN PELVIS W CONTRAST LOCATION: [facility] DATE: 10/12/2024 INDICATION: Right inferior chest wall pain, RUQ abd pain, concern for PEvs rib fractures vs PNA vs cholecystitis vs septic etiolgies COMPARISON: None. TECHNIQUE: CT chest pulmonary angiogram and routine CT abdomen pelvis withIV contrast. Arterial phase through the chest and venous phase through theabdomen and pelvis. Multiplanar reformats and MIP reconstructions wereperformed. Dose reduction techniques were used. CONTRAST: 98mL Isovue 370 FINDINGS: ANGIOGRAM CHEST: The pulmonary arteries enlarged measuring 3.7 cmsuggesting pulmonary arterial hypertension. Thoracic aorta is negative fordissection. No CT evidence of right heart strain. LUNGS AND PLEURA: Trace right effusion. Large consolidation noted withinthe right lower lobe with bilateral patchy airspace opacities bilaterally.Bronchial wall thickening predominantly at the lung bases. MEDIASTINUM/AXILLAE: Heart is moderately enlarged. No mediastinal,axillary, or hilar adenopathy. CORONARY ARTERY CALCIFICATION: Moderate. HEPATOBILIARY: 4 x 3.3 cm ill-defined low-attenuation mass within segment7 of the liver. 3.2 x 2.2 cm mass noted within the caudate. 1.6 x 1 cmmass noted at the dome of the liver. 1.9 x 1.2 cm low-attenuation lesionnoted within the superior dome of the liver within segment 7. Few additional smaller low-attenuation lesionsare noted within the liver. Findings are concerning for liver metastases.Gallbladder decompressed. PANCREAS: Normal. SPLEEN: Normal. ADRENAL GLANDS: Normal. KIDNEYS/BLADDER: Small cyst at the superior pole of the left kidney whichis benign and needs no further follow-up. Kidneys are otherwiseunremarkable with no evidence of hydronephrosis. BOWEL: Diverticulosis of the colon. No acute inflammatory change. Noobstruction. LYMPH NODES: Normal. VASCULATURE: Moderate atherosclerotic disease of the abdominal aorta. PELVIC ORGANS: Bladder within normal limits. Trace fluid within thepelvis. MUSCULOSKELETAL: Degenerative changes of the spine. IMPRESSION: 1. No pulmonary embolism. 2. Large consolidation at the right lung base with bilateral patchyairspace opacity within the lower lobes concerning for pneumonia. 3. Multiple low-attenuation lesions are noted within the liver which areindeterminant although cyst or metastatic disease. Further workup issuggested. Wilber Ndiaye MD IM CT ORDERABLES Final Result * Blood Culture Arm, Left (10/12/2024 11:28 AM CAR USHER) Only the most recent of2 resultswithin the time period is included. Culture No Growth 10/17/2024 3:32 PM CAR USHER [facility] Blood STRUCTURE OF LEFT UPPER LIMB / Unknown Venipuncture / Unknown 10/12/2024 11:28 AM CAR USHER 10/12/2024 11:32 AM CAR USHER us Wilbre Ndiaye MD LAB - MICRO GENERAL ORDERABLES F inal Result [facility] Inf. Diseases Diag. Lab [address] [facility] [place] [address], [facility] * Creatinine POCT (10/12/2024 11:00 AM CAR USHER) Creatinine POCT 1.1 0.7 - 1.3 mg/dL 10/12/2024 11:04 AM CAR USHER [facility] POC GFR, ESTIMATED POCT >60 >60 mL/min/1.7 3m2 10/12/2024 11:04 AM CAR USHER [facility] Blood, venous BLOOD SPECIMEN / Unknown 10/12/2024 11:00 AM CAR USHER 10/12/2024 11:04 AM CAR USHER us Wilber Ndiaye MD LAB - BEAKER POCT Final Result [facility] POC [facility] Lab [address] Lab (1st floor, no room number) [place] [address], [facility] * (ABNORMAL) iStat Gases (lactate) venous, POCT (10/12/2024 10:59 AM CAR USHER) Lactic Acid POCT 1.1 <=2.0 mmol/L 10/12/2024 11:03 AM CAR USHER [facility] POC Bicarbonate Venous POCT 31(H) 21 - 28 mmol/L 10/12/2024 11:03 AM CAR USHER [facility] P[facility] O2 Sat, Venous POCT 56(L) 70 - 75 % 10/12/2024 11:03 AM CAR USHER [facility] POC pCO2 Venous POCT 49 40 - 50 mm Hg 10/12/2024 11:03 AM CAR USHER [facility] P[facility] pH Venous POCT 7.40 7.32 - 7.43 10/12/2024 11:03 AM CAR USHER [facility] POC pO2 Venous POCT 30 25 - 47 mm Hg 10/12/2024 11:03 AM CAR USHER [facility] POC Blood, venous BLOOD SPECIMEN / Unknown 10/12/2024 10:59 AM CAR USHER 10/12/2024 11:03 AM CAR USHER us Wilber Ndiaye MD LAB - BEAKER POCT Final Result [facility] Lab [address] Lab (1st floor, no room number) [place] [address], [facility] * Extra Green Top (Hypoluxo Heparin) Tube (10/12/2024 10:56 AM CAR USHER) Hold Specimen [facility] 10/12/2024 12:05 PM CAR USHER [facility] Blood STRUCTURE OF RIGHT UPPER LIMB / Unknown Venipuncture / Unknown 10/12/2024 10:56 AM CAR USHER 10/12/2024 11:02 AM CAR USHER us Wilber Ndiaye MD LAB - BLOOD ORDERABLES Final Res ult Performing Organization Address City/[facility]/ZIP Co de Phone Number [facility] Lab [address] Lab (1st floor, no room number) [place] [address], [facility] * Extra Red Top Tube (10/12/2024 10:56 AM CAR USHER) Hold Specimen [facility] 10/12/2024 12:05 PM CAR USHER [facility] Blood STRUCTURE OF RIGHT UPPER LIMB / Unknown Venipuncture / Unknown 10/12/2024 10:56 AM CAR USHER 10/12/2024 11:02 AM CAR USHER us Wilber Ndiaye MD LAB - BLOOD ORDERABLES Final Res ult [facility] Lab [address] Lab (1st floor, no room number) [place] [phone], [facility] * Extra Blue Top Tube (10/12/2024 10:56 AM CAR USHER) Hold Specimen [facility] 10/12/2024 12:05 PM CAR USHER [facility] Blood STRUCTURE OF RIGHT UPPER LIMB / Unknown Venipuncture / Unknown 10/12/2024 10:56 AM CAR USHER 10/12/2024 11:02 AM CAR USHER us Wilber Ndiaye MD LAB - BLOOD ORDERABLES Final Res ult [facility] Lab [address] Lab (1st floor, no room number) [place] [address], [facility] * Influenza A/B, RSV and SARS-CoV2 PCR (COVID-19) Nasopharyngeal (10/12/2024 10:39 AM CAR USHER) Influenza A PCR Negative Negative 10/12/2024 11:31 AM CAR USHER LABORATORY Influenza B PCR Negative Negative 10/12/2024 11:31 AM CAR USHER LABORATORY RSV PCR Negative Negative 10/12/2024 11:31 AM CAR USHER LABORATORY SARS CoV2 PCR Negative Negative 10/12/2024 11:31 AM CAR USHER LABORATORY Comment:NEGATIVE: SARS-CoV-2 (COVID-19) RNA not detected, presumed negative. Swab NASOPHARYNGEAL STRUCTURE / Unknown Non-blood Collection / Unknown 10/12/2024 10:39 AM CAR USHER 10/12/2024 10:49 AM CAR USHER Narrative LABORATORY - 10/12/2024 11:31 AM CAR USHER Testing was performed using the Xpert Xpress CoV2/Flu/RSV Assay on the [employer] Egg GeneXpert Instrument. This test should be ordered for the detection of SARS- CoV2, influenza, and RSV viruses in individuals with signs and symptoms of respiratory tract infection. This test is for in vitro diagnostic use under the [place] FDA for laboratories certified under CLIA to perform high or moderate complexity testing. This test has been [place] FDA cleared. A negative result does not rule out the presence of PCR inhibitors in the specimen or target RNA in concentration below the limit of detection for the assay. If only one viral target is positive but coinfection with multiple targets is suspected, the sample should be re-tested with another FDA cleared, approved, or authorized test, if coninfection would change clinical management. This test was validated by the [facility]. These laboratories are certified under the Clinical Laboratory Improvement Amendments of 1988 (CLIA-88) as qualified to perfom high complexity laboratory testing. us Wilber Ndiaye MD LAB - MICRO GENERAL ORDERABLES F inal Result [facility] Lab [address] [facility] Lab (1st floor, no room number) [place] [address], [facility] * EKG Cardiac - HIM Scan (10/12/2024 12:00 AM CAR USHER) Only the most recent of2 resultswithin the time period is included. 10/12/2024 us Provider Outside ECG ORDERABLES Final Result * Eye Exam - HIM Scan (06/28/2024) RETINOPATHY UNKNOWN Narrative Candis Momin - 06/28/2024 Eye exam with ophthalmology on this date: 06/28/24 Exam Location: [employer] Message us Patient Reported OTHER Final Result * COLONOSCOPY (05/14/2023 8:14 AM CDT) COLONOSCOPY [facility] Patient Name: Alena Rae Procedure Date: 05/14/2023 8:14 AM Date of : 1960 Admit Type: Outpatient Age: 62 Gender: Male Attending MD: GINA SANDOVAL MD, Total Sedation Time: 30 mins Instrument Name: 223 - Adult Colonoscope Procedure: Colonoscopy Indications: Screening for colorectal malignant neoplasm Providers: GINA SANDOVAL MD (Doctor) Referring MD: WILBER MAHARAJ MD (Referring MD) Medicines: Midazolam 2 mg IV, Fentanyl 100 micrograms IV Complications: No immediate complications. Procedure: Pre-Anesthesia Assessment: - Prior to the procedure, a History and Physical was performed, and patient medications and allergies were reviewed. The patient is competent. The risks and benefits of the procedure and the sedation options and risks were discussed with the patient. All questions were answered and informed consent was obtained. Patient identification and proposed procedure were verified by the physician. Mental Status Examination: normal. Prophylactic Antibiotics: The patient does not require prophylactic antibiotics. Prior Anticoagulants: The patient has taken no anticoagulant or antiplatelet agents. ASA Grade Assessment: II - A patient with mild systemic disease. After reviewing the risks and benefits, the patient was deemed in satisfactory condition to undergo the procedure. The anesthesia plan was to use moderate sedation / analgesia (conscious sedation). Immediately prior to administration of medications, the patient was re-assessed for adequacy to receive sedatives. The heart rate, respiratory rate, oxygen saturations, blood pressure, adequacy of pulmonary ventilation, and response to care were monitored throughout the procedure. The physical status of the patient was re-assessed after the procedure. After obtaining informed consent, the colonoscope was passed under direct vision. Throughout the procedure, the patient's blood pressure, pulse, and oxygen saturations were monitored continuously. The Olympus Adult Colonoscope, Model # CF-OI850V, Endora # 223, SN # [id number] was introduced through the anus and advanced to the terminal ileum, with identification of the appendiceal orifice and IC valve. The colonoscopy was performed without difficulty. The patient tolerated the procedure well. The quality of the bowel preparation was evaluated using the BBPS ([place] Bowel Preparation Scale) with scores of: Right Colon = 3, Transverse Colon = 3 and Left Colon = 3 (entire mucosa seen well with no residual staining, small fragments of stool or opaque liquid). The total BBPS score equals 9. Findings: Skin tags were found on perianal exam. The terminal ileum appeared normal. Two semi-sessile polyps were found in the ascending colon. The polyps were 4 to 5 mm in size. These polyps were removed with a jumbo cold forceps. Resection and retrieval were complete. Estimated blood loss: none. Scattered small-mouthed diverticula were found in the sigmoid colon. External hemorrhoids were found during retroflexion. The hemorrhoids were small. Impression: - Perianal skin tags found on perianal exam. - The examined portion of the ileum was normal. - Two 4 to 5 mm polyps in the ascending colon, removed with a jumbo cold forceps. Resected and retrieved. - Diverticulosis in the sigmoid colon. - External hemorrhoids. Recommendation: - Discharge patient to home. - Resume regular diet. - Continue present medications. - Await pathology results. - Repeat colonoscopy in 5-10 years for surveillance based on pathology results. Procedure Code(s): --- Professional --- 10447, Colonoscopy, flexible; with biopsy, single or multiple Diagnosis Code(s): --- Professional --- K64.4, Residual hemorrhoidal skin tags Z12.11, Encounter for screening for malignant neoplasm of colon D12.2, Benign neoplasm of ascending colon K57.30, Diverticulosis of large intestine without perforation or abscess without bleeding CPT copyright 2021 [employer]. All rights reserved. The codes documented in this report are preliminary and upon spoilage worker review may be revised to meet current compliance requirements. Electronic Signature by Dr. Gina Sandoval GINA SANDOVAL MD 05/14/2023 9:19:23 AM I was physically present for the entire viewing portion of the exam. GINA SANDOVAL MD Number of Addenda: 0 Note Initiated On: 05/14/2023 8:14 AM Procedure Date: 05/14/2023 8:14:09 AM Scope Withdrawal Time: 0 hours 20 minutes 55 seconds Total Procedure Duration: 0 hours 23 minutes 46 seconds Estimated Blood Loss: Scope In: 8:46:50 AM Scope Out: 9:10:36 AM RADIOLOGY RESULTS 05/14/2023 8:14 AM CDT us Wilber Maharaj MD PROCEDURES Final Result RADIOLOGY RESULTS * Hepatitis C antibody (11/21/2016 7:44 AM CDT) Hepatitis C Antibody Nonreactive Assay performance characteristics have not been established for newborns, infants, and children NR [facility] Blood specimen (specimen) 11/21/2016 7:44 AM CDT 11/21/2016 7:49 AM CDT us Wilber Maharaj MD LAB - BLOOD ORDERABLES Final Res ult Performing Organization Address City/[facility]/ZIP Co de Phone Number [facility] [address] [place] [address] from Last 3 Months or Most Recently Relevant to Health Maintenance Insurance [facility] [place] [facility] Advance Directives For more information, please contact: [phone] * Full Code (Latest Code Status on File) Date Activated Date Inactivated Comments 10/29/2024 2:42 PM 11/04/2024 3:22 PM All basic an d advanced life-sustaining interventions are performed as appropriate Question Answer Comments Code status determined by: Discussion with patie nt/ legal decision maker * Full Code Date Activated Date Inactivated Comments 10/12/2024 3:22 PM 10/29/2024 2:37 PM All basic an d advanced life-sustaining interventions are performed as appropriate Question Answer Comments Code status determined by: Discussion with patie nt/ legal decision maker * Full Code Date Activated Date Inactivated Comments 03/10/2022 4:31 [...] with patie nt/legal decision maker Care Teams Head Of Quality Relationship Specialty [place] [address] [place] [address] PCP - General Family Practice 11/21/16 Stephie Mahoney MD [address] [place] [address] [phone] Endocrinology, Diabetes, and Metabolism 04/22/21 Federica Foster, RN [address] [place] [address] [id number] Computer Designer Diabetes Education 04/22/[address] [place] [address] [id number] Computer Designer Nutrition 04/22/21 Stephie Mahoney MD [address] [place] [address] [phone] Assigned Endocrinology Provider 05/08/21 Olga Garcia, RN Specialty Fitness Coach INTERNAL MEDICINE - ENDOCRINOLOGY, DIABETES & METABOLISM 09/29/22 Junior Chavira MD [address] [place] [id number] Cardiovascular Disease 05/29/24 [place] [address] [place] [address] Assigned PCP 07/12/24 Junior Chavira MD [address] [place] [id number] Assigned Heart and Vascular Provider 08/11/24 Coni Dhaliwal, COMMUNITY HEALTH NAVIGATOR [address] [place] [id number] Nurse Practitioner Psychiatry & Neurology Vascular Neurology 11/04/24 Anel Denson NP [address] 557805 Nurse Practitioner Psychiatry & Neurology Vascular Neurology 11/04/24 Angel Balbuena MD [address] [place], [place] [phone] Assigned Heart and Vascular Surgical Provider 12/10/24
--- OUTSIDE RECORDS SUMMARY | 2024-12-11 23:47 | XMS_ITS | Encounter Summary ---
Author Organization [facility] Address [address] [place] [address]. [place] [address] Care Team Providers Care Cigarette Stamper Name Role Phone Wilber Vidales MD Primary Care Provider [phone] Stephie Mahoney MD Unavailable [phone] Federica Foster RN Unavailable [phone] Unavailable [phone] Stephie Mahoney MD Unavailable [phone] Olga Garcia RN Unavailable [phone] Junior Chavira MD Unavailable [phone] Shantel Walker MD Unavailable [phone] Junior Chavira MD Unavailable [phone] Coni Dhaliwal ADMINISTRATIVE OFFICE CLERK Unavailable [phone] Anel Long NP Unavailable [phone] Angel Balbuena MD Unavailable [phone] Encounter Details Date Type Department Care Team (Late st Contact Info) Description 12/09/2024 [facility] Endocrinology Clinic [place] [address] [facility] 3rd [place] [address] Stephie Mahoney MD [address] [facility] [address] [place] [address] Social History Tobacco Use Types Packs/Day Years [...] How often do you attend chur or alevism services? 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 Gender Identity Male 03/03/2019 9:24 PM CDT Sexual Orientation Straight 03/03/2019 9: 24 PM CDT documented as of this encounter Plan of Treatment Upcoming Encounters Date Type Department Care Team (Late st Contact Info) Description 12/17/2024 9:30 AM CDT Lab [facility] [address] [place] [phone] 12/23/2024 4:00 PM CDT Office Visit [facility] [address] [facility] [address] [place] [phone] Cyrus Aleman MD [address] [place] [address] [phone] 01/27/2025 10:00 AM CDT Office Visit [facility] Neurology [facility] [address] [place] [address] [address] [place] [phone] Anel Long, WASTE RECLAIMER [address] [facility] [place], [place] [address] Coni Dhaliwal, COREY [address] [facility] [address] [place], [place] [phone] 04/14/2025 11:15 AM CDT Office Visit [facility] Heart [facility] [address] [facility] [address] [place] [phone] Inessa Esteves DO [address] [facility] [address] [place], [place] [phone] 06/05/2025 12:30 PM CDT Office Visit [facility] Endocrinology [address] [phone] Stephie Mahoney MD [address] [place] [address] [phone] 11/13/2025 11:00 AM CDT Virtual Visit [facility] Endocrinology [address] [place] [phone] Stephie Mahoney MD [address] [place] [address] [place] [address] documented as of this encounter Visit Diagnoses Not on filedocumented in this encounter Care Teams Cigarette Stamper Relationship Specialty [place] [address] [address] [place] [address] PCP - General Family Practice 11/21/16 Stephie Mahoney MD [address] [place] [address] Endocrinology, Diabetes, and Metabolism 04/22/21 Federica Foster RN [address] [place] [address] [id number] Asset Recovery Specialist Diabetes Education 04/22/[address] [place] [address] Asset Recovery Specialist Nutrition 04/22/21 Stephie Mahoney MD [address] [place] [address] Assigned Endocrinology Provider 05/08/21 Olga Garcia RN Specialty Survey Superintendent INTERNAL MEDICINE - ENDOCRINOLOGY, DIABETES & METABOLISM 09/29/22 Junior Chavira MD [address] [place] [id number] Cardiovascular Disease 05/29/24 [place] [address] [place] [address] Assigned PCP 07/12/24 Junior Chavira MD [address] [place] [address] Assigned Heart and Vascular Provider 08/11/24 Coni Dhaliwal, ADMINISTRATIVE OFFICE CLERK [address] [place] [address] Nurse Practitioner Psychiatry & Neurology Vascular Neurology 11/04/24 Anel Long NP [address] [address] Nurse Practitioner Psychiatry & Neurology Vascular Neurology 11/04/24 Angel Balbuena MD [address] [place] [address] Assigned Heart and Vascular Surgical Provider 12/10/24 documented as of this encounter
--- OUTSIDE RECORDS SUMMARY | 2024-12-11 23:47 | XMS_ITS | Encounter Summary ---
Author Organization [place] Address [address] [place] [address]. [place] [address] Care Team Providers Care Trouble Locater Name Role Phone Wilber Vidales MD Primary Care Provider [phone] Stephie Mahoney MD Unavailable [phone] Federica Foster RN Unavailable [phone] Unavailable [phone] Stephie Mahoney MD Unavailable [phone] Olga Garcia RN Unavailable [phone] Junior Chavira MD Unavailable [phone] Shantel Walker MD Unavailable [phone] Junior Chavira MD Unavailable [phone] Coni Dhaliwal CNP Unavailable [phone] Anel Long NP Unavailable [phone] Encounter Details Date Type Department Care Team (Late st Contact Info) Description 12/04/2024 Telephone [facility] [place] [address] [facility] [address] 3rd [place] [address] Stephie Mahoney MD 420 [facility] 101 [place] [address] Social History Tobacco Use Types [...] often do you attend chur ch or caodaism services? 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 Orders Placed This Encounter Procedures Thyroid peroxidase antibody TSH T4 free T3 total Lab on 12/03/2024 Component Date Value Ref Range Status TSH 12/03/2024 6.21 (H) 0.30 - 4.20 uIU/mL Final Cholesterol 12/03/2024 161 <200 mg/dL Final Triglycerides 12/03/2024 43 <150 mg/dL Final Direct Measure HDL 12/03/2024 60 >=40 mg/dL Final LDL Cholesterol Calculated 12/03/2024 92 <100 mg/dL Final Non HDL Cholesterol 12/03/2024 101 <130 mg/dL Final Patient Fasting > 8hrs? 12/03/2024 Yes Final Creatinine Urine mg/dL 12/03/2024 65.3 mg/dL Final The reference ranges have not been established in urine creatinine. The results should be integrated into the clinical context for interpretation. Albumin Urine mg/L 12/03/2024 <12.0 mg/L Final The reference ranges have not been established in urine albumin. The results should be integrated into the clinical context for interpretation. Albumin Urine mg/g Cr 12/03/2024 Final Unable to calculate, urine albumin and/or [...] pressure control, and institution of therapy withan dluxpqnudrg-bppiuimjwr-adftko (JOANA) inhibitor (if the patient can tolerate it). Sodium 12/03/2024 139 135 - 145 mmol/L Final Potassium 12/03/2024 4.3 3.4 - 5.3 mmol/L Final Chloride 12/03/2024 99 98 - 107 mmol/L Final Carbon Dioxide (CO2) 12/03/2024 31 (H) 22 - 29 mmol/L Final Anion Gap 12/03/2024 9 7 - 15 mmol/L Final Urea Nitrogen 12/03/2024 21.9 8.0 - 23.0 mg/dL Final Creatinine 12/03/2024 0.83 0.67 - 1.17 mg/dL Final GFR Estimate 12/03/2024 >90 >60 mL/min/1.73m2 Final eGFR calculated using 2020 CKD-EPI equation. Calcium 12/03/2024 9.4 8.8 - 10.4 mg/dL Final Glucose 12/03/2024 128 (H) 70 - 99 mg/dL Final Patient Fasting > 8hrs? 12/03/2024 Yes Final Estimated Average Glucose 12/03/2024 160 (H) <117 mg/dL Final Hemoglobin A1C 12/03/2024 7.2 (H) 0.0 - 5.6 % Final Normal <5.7% Prediabetes 5.7-6.4% Diabetes 6.5% or higher Note: Adopted from ADA consensus guidelines. Tissue Transglutaminase Antibody I* 12/03/2024 0.4 <7.0 U/mL Final Negative- The tTG-IgA assay has limited utility for patients with decreased levels of IgA. Screening for celiac disease should include IgA testing to rule out selective IgA deficiency and to guide selection and interpretation of serological testing. tTG-IgG testing may be positive in celiac diseasepatients with IgA deficiency. Tissue Transglutaminase Antibody I* 12/03/2024 <0.6 <7.0 U/mL Final Negative documented in this encounter Plan of Treatment Upcoming Encounters Date Type Department Care Team (Late st Contact Info) Description 12/17/2024 9:30 AM CDT Lab [facility] [address] [place] [phone] 12/23/2024 4:00 PM CDT Office Visit [address] [phone] Cyrus Aleman MD [address] [place] [address] 55[address] 01/27/2025 10:00 AM CDT Office Visit [facility] [address] [place] [address] Anel Long TILE SETTER APPRENTICE [address] [place] [address] Coni Dhaliwal, MORTGAGE LOAN CLOSER [address] [place] [address] 04/14/2025 11:15 AM CDT Office Visit [facility] [address] [facility] [address] [place] [phone] Inessa Esteves DO [address] [place] [address] 06/05/2025 12:30 PM CDT Office Visit [facility] [address] [phone] Stephie Mahoney MD [address] [place] [address] 133105 11/13/2025 11:00 AM CDT Virtual Visit [facility] [address] [phone] Stephie Mahoney MD [address] [place] [address] 808195 Scheduled Orders Name Type Priority Associated Diagnoses Orde r Schedule Thyroid peroxidase antibody Lab Routine Abnormal finding on thyroid function test Expected: 12/15/2024, Expires: 11/16/2025 TSH Lab Routine Abnormal finding on thyroid function test Expected: 12/15/2024, Expires: 11/16/2025 T4 free Lab Routine Abnormal finding on thyroid function test Expected: 12/15/2024, Expires: 11/16/2025 T3 total Lab Routine Abnormal finding on thyroid function test Expected: 12/15/2024, Expires: 11/16/2025 documented as of this encounter Visit Diagnoses Diagnosis Abnormal finding on thyroid function test- Primary Nonspecific abnormal results of thyroid function study documented in this encounter Care Teams Trouble Locater Relationship Specialty [place] [address] [place] [address] PCP - General Family Practice 11/21/16 Stephie Mahoney MD [address] [place] [address] Endocrinology, Diabetes, and Metabolism 04/22/21 Federica Foster, RN [address] [place] [address] Baseball Inspector Diabetes Education 04/22/[address] [place] [address] Baseball Inspector Nutrition 04/22/21 Stephie Mahoney MD [address] [place] [address] Assigned Endocrinology Provider 05/08/21 Olga Garcia RN Specialty Planner/Scheduler INTERNAL MEDICINE - ENDOCRINOLOGY, DIABETES & METABOLISM 09/29/22 Junior Chavira MD [address] [place] [address] Cardiovascular Disease 05/29/24 [place] [address] [place] [address] Assigned PCP 07/12/24 Junior Chavira MD [address] [place] 418265 Assigned Heart and Vascular Provider 08/11/24 Coni Dhaliwal CNP [address] [place] [address]145 Nurse Practitioner Psychiatry & Neurology Vascular Neurology 11/04/24 Anel Long NP [address] [place] [place] 530555 Nurse Practitioner Psychiatry & Neurology Vascular Neurology 11/04/24 documented as of this encounter
--- OUTSIDE RECORDS SUMMARY | 2024-12-11 23:47 | XMS_ITS | Encounter Summary ---
Author Organization [place] Address [address] [place] [address]. [place] [address] Care Team Providers Care Veneer Clipper Name Role Phone Wilber Vidales MD Primary Care Provider [phone] Stephie Mahoney MD Unavailable [phone] Federica Foster RN Unavailable [phone] Unavailable [phone] Stephie Mahoney MD Unavailable [phone] Olga Garcia RN Unavailable [phone] Junior Chavira MD Unavailable [phone] Shantel Walker MD Unavailable [phone] Junior Chavira MD Unavailable [phone] Coni Dhaliwal CNP Unavailable [phone] Anel Long NP Unavailable Angel Balbuena MD Unavailable [phone] Encounter Details Date Type Department Care Team (Late st Contact Info) Description 12/09/2024 [facility] [place] [facility]ology [facility] [address] 3rd [place] [address] Rebecca Harvey, RN Social History [...] How often do you attend chur or restorationist services? 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 Gender Identity Male 03/03/2019 9:24 PM CDT Sexual Orientation Straight 03/03/2019 9: 24 PM CDT documented as of this encounter Plan of Treatment Upcoming Encounters Date Type Department Care Team (Late st Contact Info) Description 12/17/2024 9:30 AM CDT [place] [phone] [place] [phone] 12/23/2024 4:00 PM CDT Office Visit [facility] 65[address] [facility] 450 [place] [phone] Cyrus Aleman MD [address] [place] [address] 01/27/2025 10:00 AM CDT Office Visit [facility] Neurology [facility] [place] [address]50 [facility] 200 [place] [phone] Anel Long, SURVEY RESEARCH CENTER DIRECTOR [address] [facility] [facility] [place], [place] [address] Coni Dhaliwal, COREY [address] [facility] 450 [place], [place] [address] 04/14/2025 11:15 AM CDT Office Visit [facility] [address] [facility] [address] [place] [phone] Inessa Esteves DO [address] [facility] [address] [place], [place] [address] 06/05/2025 12:30 PM CDT Office Visit [facility] Endocrinology Clinic [address] [phone] Stephie Mahoney MD [address] 246975 11/13/2025 11:00 AM CDT Virtual Visit [facility] Endocrinology Clinic [address] [phone] Stephie Mahoney MD [address] 5245[address] documented as of this encounter Visit Diagnoses Not on filedocumented in this encounter Care Teams Veneer Clipper Relationship Specialty [place] [address] [place] [address] PCP - General Family Practice 11/21/16 Stephie Mahoney MD [address] [place] [address] Endocrinology, Diabetes, and Metabolism 04/22/21 Federica Foster RN [address] [place] [address] [phone] Electric Melt Operator Diabetes Education 04/22/[address] [place] [address] Electric Melt Operator Nutrition 04/22/21 Stephie Mahoney MD [address] [place] [address] Assigned Endocrinology Provider 05/08/21 Olga Garcia RN Specialty Cash Management Clerk INTERNAL MEDICINE - ENDOCRINOLOGY, DIABETES & METABOLISM 09/29/22 Junior Chavira MD [address] [place] [address] Cardiovascular Disease 05/29/24 [place] [address] [place] [address] Assigned PCP 07/12/24 Junior Chavira MD [address] [place], [place] 8[address] Assigned Heart and Vascular Provider 08/11/24 Coni Dhaliwal, COREY [address] [place] 9836[address] Nurse Practitioner Psychiatry & Neurology Vascular Neurology 11/04/24 Anel Long NP [address] 389245 Nurse Practitioner Psychiatry & Neurology Vascular Neurology 11/04/24 Angel Balbuena MD [address] [place], [place] 4520[address] Assigned Heart and Vascular Surgical Provider 12/10/24 documented as of this encounter
--- OUTSIDE RECORDS SUMMARY | 2024-12-11 23:47 | XMS_ITS | Encounter Summary ---
Author Organization [place] Address [address] [place] [address]. [place] [address] Care Team Providers Care Tire Tester Name Role Phone Wilber Vidales MD Primary Care Provider [phone] Stephie Mahoney MD Unavailable [phone] Federica Foster RN Unavailable [phone] Unavailable [phone] Stephie Mahoney MD Unavailable [phone] Olga Garcia RN Unavailable [phone] Junior Chavira MD Unavailable [phone] Shantel Walker MD Unavailable [phone] Junior Chavira MD Unavailable [phone] Coni Dhaliwal CNP Unavailable [phone] Anel Long NP Unavailable Encounter Details Date Type Department Care Team (Latest Contact Info) Description 12/03/2024 Travel Social History Tobacco Use Types Packs/Day [...] often do you attend chur ch or oriental orthodox services? 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 Gender Identity Male 03/03/2019 9:24 PM CDT Sexual Orientation Straight 03/03/2019 9: 24 PM CDT documented as of this encounter Plan of Treatment Upcoming Encounters Date Type Department Care Team (Late st Contact Info) Description 12/17/2024 9:30 AM CDT Lab [facility] [address] [place] [address] 12/23/2024 4:00 PM CDT Office Visit [place] [address] [place] [address] Cyrus Aleman MD [address] [place] [address] 01/27/2025 10:00 AM CDT Office Visit [facility] Neurology [address] [place] [address] Anel Long, QUANTOMETER OPERATOR [address] [place] [address] Coni Dhaliwal, COREY [address] [place] [address]35 04/14/2025 11:15 AM CDT Office Visit [facility] Heart [facility] [address] [facility] [address] [place] [phone] Inessa Esteves DO [address] [place] [address] 06/05/2025 12:30 PM CDT Office Visit [facility] Endocrinology Clinic [address] [phone] Stephie Mahoney MD [address] [place] [address] 11/13/2025 11:00 AM CDT Virtual Visit [facility] Endocrinology [address] [phone] Stephie Mahoney MD [address] [place] [address] 355885 documented as of this encounter Visit Diagnoses Not on filedocumented in this encounter Care Teams Tire Tester Relationship Specialty [place] [address] [place] [address] PCP - General Family Practice 11/21/16 Stephie Mahoney MD [address] 053795 Endocrinology, Diabetes, and Metabolism 04/22/21 Federica Foster, RN 420 [place], [place] [address] Parts Analyst Diabetes Education 04/22/[address] [place] [address] [phone] Parts Analyst Nutrition 04/22/21 Stephie Mahoney MD [address] [place] [address] 976815 Assigned Endocrinology Provider 05/08/21 Olga Garcia RN Specialty Survey Research Teacher INTERNAL MEDICINE - ENDOCRINOLOGY, DIABETES & METABOLISM 09/29/22 Junior Chavira MD [address] [place] 8466[address] Cardiovascular Disease 05/29/24 [place] [address] [place] [address] Assigned PCP 07/12/24 Junior Chavira MD [address] [place] 780245 Assigned Heart and Vascular Provider 08/11/24 Coni Dhaliwal, SPEECH THERAPIST EARLY INTERVENTION [address] [place] [address] Nurse Practitioner Psychiatry & Neurology Vascular Neurology 11/04/24 Anel Long NP [address] [address] Nurse Practitioner Psychiatry & Neurology Vascular Neurology 11/04/24 documented as of this encounter
--- OUTSIDE RECORDS SUMMARY | 2024-12-11 23:47 | XMS_ITS | Encounter Summary ---
Author Organization [place] Address [address] [place] [address]. [place] [address] Care Team Providers Care Special Inspector Name Role Phone Wilber Vidales MD Primary Care Provider [phone] Stephie Mahoney MD Unavailable [phone] Federica Foster RN Unavailable [phone] Unavailable [phone] Stephie Mahoney MD Unavailable [phone] Olga Garcia RN Unavailable [phone] Junior Chavira MD Unavailable [phone] Shantel Walker MD Unavailable [phone] Junior Chavira MD Unavailable [phone] Coni Dhaliwal CNP Unavailable [phone] Anel Long NP Unavailable [phone] Encounter Details Date Type Department Care Team (Late st Contact Info) Description 12/03/2024 8:15 AM CDT Lab [facility] [address] [place] [address] Type 1 diabetes mellitus with hyperglycemia [...] How often do you attend chur or baptist services? 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 Gender Identity Male 03/03/2019 9:24 PM CDT Sexual Orientation Straight 03/03/2019 9: 24 PM CDT documented as of this encounter Plan of Treatment Upcoming Encounters Date Type Department Care Team (Late st Contact Info) Description 12/17/2024 9:30 AM CDT [address] [phone] 12/23/2024 4:00 PM CDT Office Visit [facility] [address] [facility] [address] [place] [phone] Cyrus Aleman MD [address] [place] [address] 01/27/2025 10:00 AM CDT Office Visit [facility] Neurology [facility] [address] [place] [address] [address] [place] [phone] Anel Long, SPECIAL INSPECTOR [address] [place], [place] [address] Coni Dhaliwal, HARDWARE DEVELOPER [address] [facility] 450 [place], [place] [address] 04/14/2025 11:15 AM CDT Office Visit [facility] Heart [facility] [address] [facility] [address] [place] [phone] Inessa Esteves, [address] [place], [place] [address] 06/05/2025 12:30 PM CDT Office Visit [facility] Endocrinology Clinic [address] [address] Stephie Mahoney MD [address] [place] [address] 11/13/2025 11:00 AM CDT Virtual Visit [facility] Endocrinology [address] [address] Stephie Mahoney MD [address] [place] [address] 516415 documented as of this encounter Procedures Procedure Name Priority Date/Time Associated Diagnosis Comments ALBUMIN RANDOM URINE QUANTITATIVE Routine 12/03/2024 8:41 [...] (H) documented in this encounter Results * Albumin [...] control, and institution of therapy with an qjeoraiocio-xgmcrjcbne-afvcum (JOANA) inhibitor (if the patient can tolerate it). Urine URINE SPECIMEN / Unknown Non-blood Collection / Unknown 12/03/2024 8:41 AM CDT 12/03/2024 8:41 AM CDT us Stephie Mahoney MD LAB - URINE ORDERABLES Final Result U LABORATORY [facility] [place] Core Lab [address] [facility], [address] * Tissue transglutaminase mike IgA and [...] Final Result SPECIALTY CORE/PROT/ENDO Specialty Core/Prot/Endo 500 [facility], Room [address] * (ABNORMAL) Hemoglobin A1c (12/03/2024 8:21 AM CDT) Estimated Average Glucose 160(H) <117 mg/dL 12/03/2024 [...] LAB - BLOOD ORDERABLES Final Result LABORATORY [facility] [place] Lab [address] [facility] (no room number, 1st floor of clinic) [place] [address], [facility] * (ABNORMAL) Basic metabolic panel (12/03/2024 8:21 AM CDT) Sodium 139 135 - 145 mmol/L 12/03/2024 [...] 3:17 PM CDT [facility] Comment:eGFR calculated usin 2020 CKD-EPI equation. Calcium 9.4 8.8 - [...] - BLOOD ORDERABLES Final Result [facility] LAB[facility]AT[facility] Core Lab [address] [facility], Room [address] [place] [phone] * Lipid Profile (12/03/2024 8:21 AM CDT) [...] BLOOD ORDERABLES Final Result Performing Organization Address City/[facility] Co de Phone Number U LABORATORY [facility] [place] Core Lab [address] [facility], Room [address] * (ABNORMAL) TSH (12/03/2024 8:21 AM CDT) TSH 6.21(H) 0.30 - 4.20 uIU/mL 12/03/2024 3:17 PM CDT [facility] Blood BLOOD SPECIMEN / Unknown Venipuncture / Unknown 12/03/2024 8:21 AM CDT 12/03/2024 8:21 AM CDT us Stephie Mahoney MD LAB - BLOOD ORDERABLES Final Result Performing Organization Address [facility] de Phone Number U LABORATORY [facility] [place] Core Lab [address] [facility], [address] [id number] * 25 Hydroxyvitamin D2 and D3 (12/03/2024 8:21 AM CDT) 25 [place] Vitamin D2 <5 ug/L 12/07/19 25 1:37 PM CDT [facility] 25 [place] Vitamin D3 48 ug/L 12/07/19 25 1:37 PM CDT [facility] 25 [place] Vit D Total <53 20 - 75 ug/L 12/06/2024 1:37 PM CDT [facility] Comment:Season, race, dietar y intake, and treatment affect the concentration of 19-utjfrjm-Ttkmmqb D. Values may decrease during winter months [...] and its performance characteristics determined by the [facility], Special Chemistry Laboratory. It has not been cleared or approved by the FDA. The laboratory is regulated under CLIA as qualified to perform high-complexity testing. This test is used for clinical purposes. It should not be regarded as investigational or for research. Stephie Mahoney MD LAB - BLOOD ORDERABLES Final Result [facility] 500 [facility], Room [address] [phone] documented in this encounter Visit Diagnoses Diagnosis Type 1 diabetes mellitus with hyperglycemia (H) Type I (juvenile type) diabetes mellitus without mention of complication, not stated as uncontrolled documented in this encounter Care Teams Special Inspector Relationship Specialty [place] [address] [place] [address] PCP - General Family Practice 11/21/16 Stephie Mahoney MD [address] [address] Endocrinology, Diabetes, and Metabolism 04/22/21 Federica Foster, RN 420 [place] [address] Test Engine Evaluator Diabetes Education 04/22/[address] [place] [address] Test Engine Evaluator Nutrition 04/22/21 Stephie Mahoney MD 420 [facility] 101 [place], [place] [address] Assigned Endocrinology Provider 05/08/21 Olga Garcia, RN Specialty Lockstitch Pocket Setter INTERNAL MEDICINE - ENDOCRINOLOGY, DIABETES & METABOLISM 09/29/22 Junior Chavira MD [address] [place] [address] Cardiovascular Disease 05/29/24 [place] [address] [place] [address] Assigned PCP 07/12/24 Junior Chavira MD [address] [place], [place] [address] Assigned Heart and Vascular Provider 08/11/24 Coni Dhaliwal, COREY [address] [place] [address] Nurse Practitioner Psychiatry & Neurology Vascular Neurology 11/04/24 Anel Long NP [address] [place] 84[address] Nurse Practitioner Psychiatry & Neurology Vascular Neurology 11/04/24 documented as of this encounter
--- OUTSIDE RECORDS SUMMARY | 2024-12-11 23:47 | XMS_ITS | Encounter Summary ---
Author Organization [place] Address [address] [place] [address]. [place] [address] Care Team Providers Care Graphic Coordinator Name Role Phone Wilber Vidales MD Primary Care Provider [phone] Stephie Mahoney MD Unavailable [phone] Federica Foster RN Unavailable [phone] Unavailable [phone] Stephie Mahoney MD Unavailable [phone] Olga Garcia RN Unavailable [phone] Junior Chavira MD Unavailable [phone] Shantel Walker MD Unavailable [phone] Junior Chavira MD Unavailable [phone] Coni Dhaliwal CNP Unavailable [phone] Anel Long NP Unavailable [phone] Encounter Details Date Type Department Care Team (Late st Contact Info) Description 12/05/2024 Telephone [facility]ology [facility] [place] [address] [facility] [address] 3rd [place] [address] Stephie Mahoney MD 420 [facility] 101 [place] [address] Social History Tobacco Use Types [...] Answer Date Recorded PHQ-2 Score 0 11/14/2024 [facility] - Occupational [...] AM CDT 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 History of contrast exposure. MyChart sent the patient to recheck labs in a few weeks. documented in this encounter Plan of Treatment Upcoming Encounters Date Type Department Care Team (Late st Contact Info) Description 12/17/2024 9:30 AM CDT Lab [facility] [address] [place] [phone] 12/23/2024 4:00 PM CDT Office Visit [facility] [address] [facility] [address] [place] [address] Cyrus Aleman MD [address] [place] [address] 743165 01/27/2025 10:00 AM CDT Office Visit [facility] [address] [place] [address] [address] [place] [phone] Anel Long, CONCRETE GRINDER OPERATOR [address] [place], [place] [address] Coni Dhaliwal, INTERNET DESIGNER [address] [facility] 450 [place], [place] [address] 04/14/2025 11:15 AM CDT Office Visit [facility] [address] [facility] [address] [place] [phone] Inessa Esteves DO [address] [place], [place] [address] 06/05/2025 12:30 PM CDT Office Visit [facility] Endocrinology [facility] 9[address] [facility] 3rd [place] [phone] Stephie Mahoney MD [address] [place] [address] [place] [address] 11/13/2025 11:00 AM CDT Virtual Visit [facility]inology [facility] [place] [address] [facility] 3rd [place] [address] Stephie Mahoney MD [address] [address] documented as of this encounter Visit Diagnoses Not on filedocumented in this encounter Care Teams Graphic Coordinator Relationship Specialty [place] [address] [place] [address] PCP - General Family Practice 11/21/16 Stephie Mahoney MD [address] [place] [address] Endocrinology, Diabetes, and Metabolism 04/22/21 Federica Foster RN 420 [place], [place] 642105 Drill Press Operator Numerical Control Diabetes Education 04/22/[address] [place] [address] 374054 Drill Press Operator Numerical Control Nutrition 04/22/21 Stephie Mahoney MD [address] [place] [address] Assigned Endocrinology Provider 05/08/21 Olga Garcia, RN Specialty Office Administration INTERNAL MEDICINE - ENDOCRINOLOGY, DIABETES & METABOLISM 09/29/22 Junior Chavira MD [address] [place] [address] Cardiovascular Disease 05/29/24 [place] [address] [place] [address] Assigned PCP 07/12/24 Junior Chavira MD [address] [place] [id number] Assigned Heart and Vascular Provider 08/11/24 Coni Dhaliwal, INTERNET DESIGNER [address] [place] 355[address] Nurse Practitioner Psychiatry & Neurology Vascular Neurology 11/04/24 Anel Long NP [address] [place] [address] 419715 Nurse Practitioner Psychiatry & Neurology Vascular Neurology 11/04/24 documented as of this encounter
--- OUTSIDE RECORDS SUMMARY | 2024-12-11 23:47 | XMS_ITS | Encounter Summary ---
Author Organization [place] Address [address] [place] [address]. [place] [address] Care Team Providers Care Automobile Sales Representative Name Role Phone Wilber Vidales MD Primary Care Provider [phone] Stephie Mahoney MD Unavailable [phone] Federica Foster RN Unavailable [phone] Unavailable [phone] Stephie Mahoney MD Unavailable [phone] Olga Garcia RN Unavailable [phone] Junior Chavira MD Unavailable [phone] Shantel Walker MD Unavailable [phone] Junior Chavira MD Unavailable [phone] Coni Dhaliwal CNP Unavailable [phone] Anel Long NP Unavailable [phone] Encounter Details Date Type Department Care Team (Late st Contact Info) Description 12/01/2024 Telephone [facility]inology [facility] [place] 9[address] [facility] [address] 3rd [place] [address] Stephie Mahoney MD [address] [facility] 101 [place] [address] Social History Tobacco Use Types [...] any clubs o r organizations such as buddhist groups, unions, fraternal or athletic groups, or [...] Answer Date Recorded PHQ-2 Score 0 11/14/2024 [facility] - Occupational Stress [...] CDT 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 Total daily dose 39 units/day, 57% (22 units) by basal, 17 units bolus. - Old Pump settings: Basal rate: 0.9 units/h Insulin sensitivity: Midnight to 6 AM: 1 per 45 6 AM to midnight: 1 per 35 Insulin carb ratio Midnight to 2 PM: 1 per 10 2 PM to midnight: 1 per 8 Blood glucose correct above: Midnight to 6:30 AM - correct above 130 6 am to 9:30 PM - correct above 120 9:30 pm to midngiht - correct above 130 Blood glucose target: 120 - Insulin sensitivity (also known as correction factor) Midnight to 6 AM: 1 per 48 6 AM to 7 pm: 1 per 35 7 pm to 10 pm: 1 per 30 10 pm to midnight: 1 per 48 Insulin carb ratio Midnight to 2 PM: 1 per 15 2 PM to midnight: 1 per 15 Blood glucose correct above: Midnight to 6:30 AM - correct above 130 6 am to 9:30 PM - correct above 120 9:30 pm to midngiht - correct above 130 Blood glucose target: Midnight to 6 am: 130 6 am to midnight: 120 documented in this encounter Plan of Treatment Upcoming Encounters Date Type Department Care Team (Late st Contact Info) Description 12/17/2024 9:30 AM CDT Lab [facility] [address] [place] [phone] 12/23/2024 4:00 PM CDT Office Visit [address] [phone] Cyrus Aleman MD [address] [place] [address] 716555 01/27/2025 10:00 AM CDT Office Visit [facility] [address] [place] [phone] Anel Long NP [address] [place] [address] Coni Dhaliwal, COREY [address] [place] [address] 04/14/2025 11:15 AM CDT Office Visit [facility] [address] [facility] [address] [place] [address] Inessa Esteves DO [address] [place] [address] 06/05/2025 12:30 PM CDT Office Visit [facility] Endocrinology [address] [phone] Stephie Mahoney MD [address] [place] [address] 904485 11/13/2025 11:00 AM CDT Virtual Visit [facility] Endocrinology [address] [phone] Stephie Mahoney MD [address] 498[address] documented as of this encounter Visit Diagnoses Not on filedocumented in this encounter Care Teams Automobile Sales Representative Relationship Specialty [place] [address] [place] [address] PCP - General Family Practice 11/21/16 Stephie Mahoney MD [address] [place] [address] Endocrinology, Diabetes, and Metabolism 04/22/21 Federica Foster, RN [address] [place] [address] Drill Doctor Diabetes Education 04/22/[address] [place] [address] Drill Doctor Nutrition 04/22/21 Stephie Mahoney MD [address] [place] [address] Assigned Endocrinology Provider 05/08/21 Olga Garcia RN Specialty Urologist INTERNAL MEDICINE - ENDOCRINOLOGY, DIABETES & METABOLISM 09/29/22 Junior Chavira MD [address] [place] 063245 Cardiovascular Disease 05/29/24 [place] [address] [place] [address] Assigned PCP 07/12/24 Junior Chavira MD [address] [place] 8[address]005 Assigned Heart and Vascular Provider 08/11/24 Coni Dhaliwal, SALES AND MARKETING PROFESSIONAL [address] [place] [phone] Nurse Practitioner Psychiatry & Neurology Vascular Neurology 11/04/24 Anel Long NP [address] [place] [address] Nurse Practitioner Psychiatry & Neurology Vascular Neurology 11/04/24 documented as of this encounter
--- OUTSIDE RECORDS SUMMARY | 2024-12-11 23:47 | XMS_ITS | Encounter Summary ---
Author Organization [place] Address [address] [place] [address]. [place] [address] Care Team Providers Care Research Pharmacist Name Role Phone Wilber Vidales MD Primary Care Provider [phone] Stephie Trevizo MD Unavailable [phone] Federica Foster RN Unavailable [phone] Unavailable [phone] Stephie Trevizo MD Unavailable [phone] Olga Garcia RN Unavailable [phone] Junior Chavira MD Unavailable [phone] Shantel Walker MD Unavailable [phone] Junior Chavira MD Unavailable [phone] Coni Dhaliwal CNP Unavailable [phone] Anel Long NP Unavailable Encounter Details Date Type Department Care Team (Late st Contact Info) Description 12/09/2024 Telephone [facility] [place] 909 [facility] [address] 3rd [place] [address] Stephie Trevizo MD 420 [facility] 101 [place] [address] Social History Tobacco Use Types [...] often do you attend chur ch or bahai services? 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 - Dear Santy Here are your labs which are most significant for a slightly higher TSH. Sometimes we see this whenyour thyroid is not working. Usually at this range, we just recheck. If you can check this at the end of November/beginning of December, that would be great. Your hemoglobin A1c continues to improve. Please call to schedule these labs. If you have any questions, please feel free to contact my nurse at [phone] select option #3 for triage nurse or option #1 for scheduling related questions. Regards Stephie Trevizo MD Lab on 12/03/2024 Component Date Value Ref Range Status 25 OH Vitamin D2 12/03/2024 <5 ug/L Final 25 OH Vitamin D3 12/03/2024 48 ug/L Final 25 OH Vit D Total 12/03/2024 <53 20 - 75 ug/L Final Season, race, dietary intake, and treatment affect the concentration of 05-rgaczoe-Yxuntmo D. Values may decrease during winter months and increase during summer months. Values 20-29 ug/L may indicate Vitamin D insufficiency and values <20 ug/L may indicate Vitamin D deficiency. TSH 12/03/2024 6.21 (H) 0.30 - 4.20 [...] pressure control, and institution of therapy withan mutuuaycoyw-xffsblcqhw-gwadge (JOANA) inhibitor (if the patient can tolerate [...] I* 12/03/2024 <0.6 <7.0 U/mL Final Negative - CGM reviewed: 54% in range, 46% above range, average glucose 183, estimated hemoglobin A1c at 7.7. TSH slightly higher at 6.21, hemoglobin A1c at 7.19 October 2024 hemoglobin A1c at 7.5. Doing well on Zetia with October 2024 LDL 64. He does tend to have hyperglycemia during the day as well as some hypoglycemia at night. Will update pump settings as noted below: Pump settings as noted below: Patient takes roughly 40 units/day, 59% (23 units) as basal, 41% (16 units) bolus. He was supposed to be on the following: Pump settings: Basal rate: 0.9 units/h Insulin [...] pm to midngiht - correct above 130 - He is currently on the following: Basal rate: 0.9 units/h Insulin sensitivity: Midnight to 6 AM: 1 per 48 6 AM to 10 PM: 1 per 30 10 PM to midnight: 1 per 48 Insulin to carb ratio: Midnight to 6 AM: 1 per 15 6 AM to 6 PM: 1 per 12 6 PM to midnight: 1 per 15 Blood glucose correct above: Midnight to 6:30 AM - correct above 130 6 am to 9:30 PM - correct above 120 9:30 pm to midngiht - correct above 130 Blood glucose target: Blood glucose correct above: Midnight to 6:30 AM - correct above 130 6 am to 9:30 PM - correct above 120 9:30 pm to midngiht - correct above 120 - We will have the patient adjust the following: Insulin sensitivity: Midnight to 6 AM: 1 per 50 6 AM to 10 PM: 1 per 33 10 PM to midnight: 1 per 45 * Addendum Note - Stephie Trevizo MD - 12/09/2024 3:14 PM CDTAddended by: STEPHIE TREVIZO on: 12/09/2024 03:19 PM Modules accepted: Orders documented in this encounter Plan of Treatment Upcoming Encounters Date Type Department Care Team (Late st Contact Info) Description 12/17/2024 9:30 AM CDT Lab [facility] [address] [place] [address] 12/23/2024 4:00 PM CDT Office Visit [facility] 6545 [facility] 450 [place] [phone] Cyrus Aleman MD [address] [place] [address] 01/27/2025 10:00 AM CDT Office Visit [facility] Neurology [facility] [address] [place] [address] 200 [place] [phone] Anel Long, ENVIRONMENTAL ADVISER [address] [place], [place] [address] Coni Dhaliwal, INSPECTOR SOLDERING 6545 [facility] 450 [place], [place] [address] 04/14/2025 11:15 AM CDT Office Visit [facility] [address] [facility] [address] [place] [phone] Inessa Esteves DO [address] [place], [place] [address] 06/05/2025 12:30 PM CDT Office Visit [facility] Endocrinology [facility] [address] [phone] Stephie Trevizo MD [address] [place] [address] 11/13/2025 11:00 AM CDT Virtual Visit [facility] [address] 3rd [place] [phone] Stephie Trevizo MD [address] [place] [address] Scheduled Orders Name Type Priority Associated Diagnoses Orde r Schedule TSH Lab Routine Abnormal finding on thyroid function test Expected: 12/18/2024, Expires: 11/16/2025 T4 free Lab Routine Abnormal finding on thyroid function test Expected: 12/18/2024, Expires: 11/16/2025 T3 total Lab Routine Abnormal finding on thyroid function test Expected: 12/18/2024, Expires: 11/16/2025 documented as of this encounter Visit Diagnoses Diagnosis Abnormal finding on thyroid function test- Primary Nonspecific abnormal results of thyroid function study documented in this encounter Care Teams Research Pharmacist Relationship Specialty [place] [address] [place] [address] PCP - General Family Practice 11/21/16 Stephie Trevizo MD [address] [place] [address] Endocrinology, Diabetes, and Metabolism 04/22/21 Federica Foster, RN [address] [place] [address] Uniform Attendant Diabetes Education 04/22/[address] [place] [address] Uniform Attendant Nutrition 04/22/21 Stephie Trevizo MD [address] [place] [address] 101 [place] [address] Assigned Endocrinology Provider 05/08/21 Olga Garcia, RN Specialty Interior Design Instructor INTERNAL MEDICINE - ENDOCRINOLOGY, DIABETES & METABOLISM 09/29/22 Junior Chavira MD [address] [place] [address] Cardiovascular Disease 05/29/24 [place] [address] [place] [address] Assigned PCP 07/12/24 Junior Chavira MD [address] [place] [address]455 Assigned Heart and Vascular Provider 08/11/24 Coni Dhaliwal CNP [address] [place] 274165 Nurse Practitioner Psychiatry & Neurology Vascular Neurology 11/04/24 Anel Long NP [address] [place] 988075 Nurse Practitioner Psychiatry & Neurology Vascular Neurology 11/04/24 documented as of this encounter
--- OUTSIDE RECORDS SUMMARY | 2024-12-11 23:48 | XMS_ITS | Encounter Summary ---
Author Organization [place] Address [address] [place] [address]. [place] [address] Care Team Providers Care Charge Entry Clerk Name Role Phone Wilber Vidales MD Primary Care Provider [phone] Stephie Mahoney MD Unavailable [phone] Federica Foster RN Unavailable [phone] Unavailable [phone] Stephie Mahoney MD Unavailable [phone] Olga Garcia RN Unavailable [phone] Junior Chavira MD Unavailable [phone] Shantel Walker MD Unavailable [phone] Junior Chavira MD Unavailable [phone] Coni Dhaliwal CNP Unavailable [phone] Anel Long NP Unavailable Angel Balbuena MD Unavailable [phone] Encounter Details Date Type Department Care Team (Late st Contact Info) Description 12/09/2024 [facility] Medical Advice [facility] Endocrinology Clinic [address] 3rd [place] [address] Rebecca Harvey, RN Social History [...] Recorded PHQ-2 Score 0 11/14/2024 [facility] Questionnaire Answer Date [...] in an overnight penitentiary, or couch-surfing.) Yes 10/29/2024 Are you worried [...] AM CDT 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 Gender Identity Male 03/03/2019 9:24 PM CDT Sexual Orientation Straight 03/03/2019 9: 24 PM CDT documented as of this encounter Plan of Treatment Upcoming Encounters Date Type Department Care Team (Late st Contact Info) Description 12/17/2024 9:30 AM CDT [place] [phone] [place] [phone] 12/23/2024 4:00 PM CDT Office Visit [facility] 6545 [facility] 450 [place] [phone] Cyrus Aleman MD [address] [place] [address] 01/27/2025 10:00 AM CDT Office Visit [facility] Neurology Clinic [place] 1650 [facility] 200 [place] [phone] Anel Long, CYCLE COUNTER [address] [facility] [place], [place] [address] Coni Dhaliwal, COREY 9445 [facility] 450 [place], [place] [address] 04/14/2025 11:15 AM CDT Office Visit [facility] [address] [facility] [address] [place] [phone] Inessa Esteves DO 6405 [facility] [address] [place], [place] [address] 06/05/2025 12:30 PM CDT Office Visit [facility] Endocrinology Clinic [address] [phone] Stephie Mahoney MD [address] 909285 11/13/2025 11:00 AM CDT Virtual Visit [facility] Endocrinology Clinic [address] [phone] Stephie Mahoney MD [address] 463255 documented as of this encounter Visit Diagnoses Not on filedocumented in this encounter Care Teams Charge Entry Clerk Relationship Specialty [place] [address] [place] [address] PCP - General Family Practice 11/21/16 Stephie Mahoney MD [address] [place] [address] Endocrinology, Diabetes, and Metabolism 04/22/21 Federica Foster RN [address] [place] [address] [phone] Account Associate Diabetes Education 04/22/[address] [place] [address] Account Associate Nutrition 04/22/21 Stephie Mahoney MD [address] [place] [address] Assigned Endocrinology Provider 05/08/21 Olga Garcia RN Specialty Inspector [place] INTERNAL MEDICINE - ENDOCRINOLOGY, DIABETES & METABOLISM 09/29/22 Junior Chavira MD [address] [place] [address] Cardiovascular Disease 05/29/24 [place] [address] [place] [address] Assigned PCP 07/12/24 Junior Chavira MD [address] [place], [place] 0[address] Assigned Heart and Vascular Provider 08/11/24 Coni Dhaliwal, COREY [address] [place] 998825 Nurse Practitioner Psychiatry & Neurology Vascular Neurology 11/04/24 Anel Long NP [address] 722985 Nurse Practitioner Psychiatry & Neurology Vascular Neurology 11/04/24 Angel Balbuena MD [address] [place], [place] 770[address] Assigned Heart and Vascular Surgical Provider 12/10/24 documented as of this encounter
--- OUTSIDE RECORDS SUMMARY | 2024-12-11 23:48 | XMS_ITS | Encounter Summary ---
Author Organization [facility] Address [address] [place] [address]. [place] [address] Care Team Providers Care Data Transcriber Name Role Phone Wilber Vidales MD Primary Care Provider [phone] Stephie Mahoney MD Unavailable [phone] Federica Foster RN Unavailable [phone] Unavailable [phone] Stephie Mahoney MD Unavailable [phone] Olga Garcia RN Unavailable [phone] Junior Chavira MD Unavailable [phone] Shantel Walker MD Unavailable [phone] Junior Chavira MD Unavailable [phone] Coni Dhaliwal CNP Unavailable [phone] Anel Long NP Unavailable [phone] Encounter Details Date Type Department Care Team (Late st Contact Info) Description 12/09/2024 Telephone [facility] Endocrinology Clinic [place] [id number] [facility] 3rd [place] [address] Rebecca Harvey, RN Social History [...] How often do you attend chur or holiness services? 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 I also sent him some pump adjustments as noted belowby Jerri. He could try this. We will have the patient adjust the following: Insulin sensitivity: Midnight to 6 AM: 1 per 50 6 AM to 10 PM: 1 per 33 10 PM to midnight: 1 per 45 documented in this encounter Plan of Treatment Upcoming Encounters Date Type Department Care Team (Late st Contact Info) Description 12/17/2024 9:30 AM CDT Lab [facility] [address] [place] [address] 12/23/2024 4:00 PM CDT Office Visit [address] [phone] Cyrus Aleman MD [address] [place] [address] 120735 01/27/2025 10:00 AM CDT Office Visit [facility] Neurology [facility] [address] [place] [address] [address] [place] [address] Anel Long NP [address] [place], [place] [phone] Coni Dhaliwal, STONE MASON [address] [address] 04/14/2025 11:15 AM CDT Office Visit [facility] Heart [facility] [address] [facility] [address] [place] [phone] Inessa Esteves DO [address] [place] [address] 06/05/2025 12:30 PM CDT Office Visit [facility] Endocrinology Clinic [address] [phone] Stephie Mahoney MD [address] [place] [address]9045 11/13/2025 11:00 AM CDT Virtual Visit [facility] Endocrinology [address] [address] Stephie Mahoney MD [address] [place] [address] [phone] documented as of this encounter Visit Diagnoses Not on filedocumented in this encounter Care Teams Data Transcriber Relationship Specialty [place] [address] [facility] [address] PCP - General Family Practice 11/21/16 Stephie Mahoney MD [address] [place] [address] [phone] Endocrinology, Diabetes, and Metabolism 04/22/21 Federica Foster, RN [address] [place] [address] [phone] Water Treatment Technician Diabetes Education 04/22/[address] [place] [address] [phone] Water Treatment Technician Nutrition 04/22/21 Stephie Mahoney MD [address] [facility] [address] [place], [place] [address] Assigned Endocrinology Provider 05/08/21 Olga Garcia, RN Specialty Developer [employer] INTERNAL MEDICINE - ENDOCRINOLOGY, DIABETES & METABOLISM 09/29/22 Junior Chavira MD [address] [place] [address] Cardiovascular Disease 05/29/24 [place] [address] [place] [address] Assigned PCP 07/12/24 Junior Chavira MD [address] [place] [address] Assigned Heart and Vascular Provider 08/11/24 Coni Dhaliwal, COREY [address] [place] [address] Nurse Practitioner Psychiatry & Neurology Vascular Neurology 11/04/24 Anel Long, TARIK [address] [place] [address] Nurse Practitioner Psychiatry & Neurology Vascular Neurology 11/04/24 documented as of this encounter
--- OUTSIDE RECORDS SUMMARY | 2024-12-11 23:49 | XMS_ITS | Encounter Summary ---
Author Organization [facility] Address [address] [place] [address]. [place] [address] Care Team Providers Care Oil Heaterman Name Role Phone Wilber Vidales MD Primary Care Provider [phone] Stephie Mahoney MD Unavailable Federica Foster RN Unavailable [address] Unavailable [phone] Stephie Mahoney MD Unavailable [phone] Olga Garcia RN Unavailable [phone] Junior Chavira MD Unavailable [phone] Shantel Walker MD Unavailable [phone] Junior Chavira MD Unavailable [phone] Reason for Referral * Diagnostic Imaging CT Scan (Routine) - Closed Specialty Diagnoses / Procedures Referred By Contac t Referred To Contact Radiology. Diagnoses Pneumonia of both lower lobes due to infectious organism Procedures CT Chest w Contrast Angel Balbuena MD [address] [place] [address] Phone: tel: fax: [facility] [address] [place] [address] Phone: tel: fax: Referral ID Status Reason Start Date Expiration Date Visits Re quested Visits Authorized [id number] Closed 10/28/2024 10/28/2025 1 1 Encounter Details Date Type Department Care Team (Late st Contact Info) Description 10/28/2024 Orders Only [facility] - Surgical Specialties Service Line [address] [place] [phone] Angel Balbuena MD [address] [place] [address] Pneumonia of both lower lobes due to infectious organism (Primary Dx) Social History Tobacco Use Types [...] How often do you attend chur or lutheran services? 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 Gender Identity Male 03/03/2019 9:24 PM CDT Sexual Orientation Straight 03/03/2019 9: 24 PM CDT documented as of this encounter Progress Notes * Angel Balbuena MD - 10/28/2024 3:[address] documented in this encounter Plan of Treatment Upcoming Encounters Date Type Department Care Team (Late st Contact Info) Description 12/17/2024 9:30 AM CDT Lab [facility] [address] [place] [address] 12/23/2024 4:00 PM CDT Office Visit [facility] [address] [place] [phone] Cyrus Aleman MD [address] [place] [phone] 01/27/2025 10:00 AM CDT Office Visit [facility] Neurology [facility] [address] [place] [address] [address] [place] [address] Anel Long NP [address] [place], [place] [phone] Coni Dhaliwal, IRONWORKER [address] [address] 04/14/2025 11:15 AM CDT Office Visit [facility] Heart [facility] [address] [place] [phone] Inessa Esteves DO [address] [place] [address] 06/05/2025 12:30 PM CDT Office Visit [facility] Endocrinology Clinic [address] [place] [phone] Stephie Mahoney MD [address] [place] [address] [phone] 11/13/2025 11:00 AM CDT Virtual Visit [facility] Endocrinology [address] [place] [phone] Stephie Mahoney MD [address] [place] [address] [phone] documented as of this encounter Results * CT Chest w Contrast (11/28/2024 1:52 [...] CDT EXAM: CT CHEST W CONTRAST LOCATION: [facility] DATE: 11/28/2024 INDICATION: trapped lung COMPARISON: CT [...] 12/01/2024 EXAM: CT CHEST W CONTRAST LOCATION: [facility] DATE: 11/28/2024 INDICATION: trapped lung COMPARISON: CT [...] month CT chestfollow-up exam. Angel Balbuena MD IM CT ORDERABLES Final Result documented in this encounter Visit Diagnoses Diagnosis Pneumonia of both lower lobes due to infectious organism- Primary Pneumonia of both lower lobes due to infectious organism documented in this encounter Care Teams Oil Heaterman Relationship Specialty [place] [address] [place] [address] PCP - General Family Practice 11/21/16 Stephie Mahoney MD [address] [place] [address] [phone] Endocrinology, Diabetes, and Metabolism 04/22/21 Federica Foster, RN [address] [place] [address] [phone] [employer] Diabetes Education 04/22/[address] [place] [address] [phone] [employer] Nutrition 04/22/21 Stephie Mahoney MD [address] [place] [address] [phone] Assigned Endocrinology Provider 05/08/21 Olga Garcia RN Specialty Cashier [employer] INTERNAL MEDICINE - ENDOCRINOLOGY, DIABETES & METABOLISM 09/29/22 Junior Chavira MD [address] [place] [address] Cardiovascular Disease 05/29/24 [place] [address] [place] [address] Assigned PCP 07/12/24 Junior Chavira MD [address] [place] [address] Assigned Heart and Vascular Provider 08/11/24 documented as of this encounter
--- OUTSIDE RECORDS SUMMARY | 2024-12-11 23:49 | XMS_ITS | Encounter Summary ---
Author Organization [facility] Address [address] [place] [address]. [place] [address] Care Team Providers Care Instructional Technology Facilitator Name Role Phone Wilber Vidales MD Primary Care Provider [phone] Stephie Mahoney MD Unavailable [phone] Federica Foster RN Unavailable [phone] Unavailable Stephie Mahoney MD Unavailable [phone] Olga Garcia RN Unavailable [phone] Junior Chavira MD Unavailable [phone] Shantel Walker MD Unavailable [phone] Junior Chavira MD Unavailable [phone] Reason for Referral * CV Testing (Routine) - Pending Review Specialty Diagnoses / Procedures Referred By Contac t Referred To Contact Diagnoses 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 of right middle cerebral artery (H) Procedures [employer]IO PATCH MAIL OUT Anel Long, RFID ENGINEER [address] [place] [address] Phone: tel: fax: Referral ID Status Reason Start Date Expiration Date V isits Requested Visits Authorized [id number] Pending Review 10/27/2024 10/27/2025 1 1 * (Routine: Next available opening) - Pending Review Specialty Diagnoses / Procedures Referred By Contac t Referred To Contact Diagnoses 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 of right middle cerebral artery (H) Procedures Stroke Hospital Follow Up (for neurologist use only) Anel Long NP [address] [place] [address] Phone: tel: fax: Referral ID Status Reason Start Date Expiration Date V isits Requested Visits Authorized [id number] Pending Review 10/27/2024 10/27/2025 1 1 * Care Coordination (Routine: Next available opening) - Pending Review Specialty Diagnoses / Procedures Referred By Contac t Referred To Contact Diagnoses Pneumonia of both lower lobes due to infectious organism Ortiz Chew MD [address] [place] [address] Phone: tel: fax: Referral ID Status Reason Start Date Expiration Date V isits Requested Visits Authorized [id number] Pending Review 10/14/2024 10/14/2025 1 1 Question Answer Reason for Referral: Care Transition Transition: Inpatient to outpatient Clinical Staff have discussed the Care Coordination Referral with the patient and/or caregiver: No Comments CTOR VIDEO Reason for Visit * Reason Comments Shortness of Breath Fall * Auth/Cert Specialty Diagnoses / Procedures Referred By Contac t Referred To Contact EMERGENCY MEDICINE Diagnoses Hyponatremia Pneumonia of both lower lobes due to infectious organism Weakness generalized RUQ abdominal pain Acute respiratory failure with hypoxia (H) Fall, initial encounter [facility] Emergency Dept [address] [place] [address] Phone: tel:[phone] fax: Referral ID Status Reason Start Date Expiration Date Visits Re quested Visits Authorized [id number] 1 1 Encounter Details Date Type Department Care Team (Late st Contact Info) Description 10/12/2024 10:41 AM DIRECTOR VIDEO - 10/29/2024 2:00 PM CDT Hospital Encounter [facility] 3 Medical Surgical [address] [place] [address] Wilber Ndiaye MD [facility] [address] [place], [place] [address] Arielle Martel, [address] [place], [place] [address] Pneumonia of both lower lobes due to infectious organism (Primary Dx); Hyponatremia; Weakness generalized; RUQ abdominal pain; Acute respiratory failure with hypoxia (H); Fall, initial encounter; Type 1 diabetes mellitus with hyperglycemia (H); Paroxysmal atrial fibrillation (H); Drug-induced constipation; 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 of right middle cerebral artery (H) Discharge Disposition: Acute Rehab Facility Social History Tobacco Use Types Packs/Day Years [...] Score 0 11/23/2023 [facility] Occupational Stress Questionnaire Answer [...] in an abandoned building, in an overnight half-way, or couch-surfing.) Yes 10/29/2024 Are you worried [...] CDT 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 DIRECTOR VIDEO Gender Identity Male 03/03/2019 9:24 PM CDT Sexual Orientation Straight 03/03/2019 9: 24 PM CDT documented as of this encounter Last Filed Vital Signs Vital Sign Reading Time Taken Comments Blood Pressure 141/80 10/29/2024 12:02 PM CDT Pulse 79 10/29/2024 12:02 PM CDT Temperature 36.4 C (97.6 F) 10/29/2024 7:23 AM CDT Respiratory Rate 18 10/29/2024 7:23 AM CDT Oxygen Saturation 91% 10/29/2024 7:23 AM CDT Inhaled Oxygen Concentration - - Weight 87.7 kg (193 lb 5.5 oz) 10/23/2024 5:15 P M DIRECTOR VIDEO Height 175.3 cm (5' 9) 10/15/2024 6:30 AM DIRECTOR VIDEO Body Mass Index 28.55 10/15/2024 6:30 AM DIRECTOR VIDEO documented in this encounter Discharge Summaries * Nishant Sands MD - 10/29/2024 10:50 AM CDT [facility] Hospitalist Discharge Summary Date of Admission: 10/12/2024 Date of Discharge: 10/29/2024 Discharging Provider: Nishant Sands MD, MD Discharge Service: Hospitalist Service Discharge Diagnoses Acute hypoxic respiratory failure Right sided loculated pleural effusion resulting in atelectasis/trapped lung - felt to be parapneumonic effusion -Treated with chest tube drainage this admission - cytology and culture of fluid negative -Thoracic surgery planning on follow-up clinic visit in 1 month with repeat chest CT scan - completed 14 day antibiotic course (Zosyn while hospitalized) Incidental finding of liver nodules/masses on CT imaging and MRI this admission, with largest lesion measuring 3.8 cm in posterior right lobe of the liver. - patient and spouse report this is a known diagnosis for several years. It has never been biopsied -Per radiology read Multifocal indeterminate lesions in the liver. These do not have T2 characteristics of simple cysts. Differential includes metastatic disease, among other considerations. Recommend biopsy of the largest lesion in the posterior right lobe of the liver. -Recommend follow-up with primary care provider and consider biopsy for further characterization History of brain astrocytoma status post resection -On brain MRI this admission, noted to have interval development of 1 cm linear focus of restricteddiffusion posterior to the right frontal resection cavity since most recent MRI performed 10/2023. Differential considerations include acute ischemia, posttreatment change, or recurrence. Recommend continued radiographic follow-up. - pt was seen by neurology given abnormal MRI and possible CVA prior to discharge to ARU. Neurologyrecommended to continue DOAC given history of atrial fibrillation and add atorvastatin. They also ordered a Ziopatch after discharge. Diabetes mellitus type 1. - Currently being treated with subcutaneous insulin while hospitalized. 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 as calculated from the following: Height as of this encounter: 1.753 m (5' 9). Weight as of this encounter: 87.7 kg (193 lb 5.5 oz). Follow-ups Needed After Discharge Follow-up Appointments Follow-up and recommended labs and tests See your primary provider in 1 week after discharge from rehabilitation center Follow up with thoracic surgery in 1 month. They will contact you to arrange an appointment and areplanning on repeat a chest CT scan at that time You were noted to have several liver nodules/masses on CT and MRI imaging of your abdomen this admission. Recommend follow up with your primary provider and consider biopsy for further evaluation (tohelp further characterize lesions and rule out malignancy). Please discuss this with your primary MD at next clinic visit who can help arrange this for you On brain MRI, you were found to have interval development of 1 cm linear focus of restricted diffusion posterior to the right frontal resection cavity. Differential considerations include acute ischemia, posttreatment change, or recurrence. Recommend continued radiographic follow-up. Unresulted Labs Ordered in the Past 30 Days of this Admission No orders found from 09/12/2024 to 10/13/2024. Discharge Disposition Discharged to rehabilitation facility Condition at discharge: Stable Hospital Course Continuing medicine service care today. Chart reviewed. Seen and examined. I met Alena this morningwhile he is eating his breakfast food tray and fortunately had no significant reported events overnight. No recurrent atrial fibrillation with RVR issues. No escalation of oxygen needs. No mental status changes. Remained afebrile. He mentioned no nausea or vomiting. Tolerating oral diet. Passing flatus. No reported diarrhea. He is agreeable with plan discharge going to an ARU placement. I will refer you to excerpts of prior progress notes as listed below for details of his hospitalization stay: Summary of Stay: Alena Rae is a 63 year old male with history of type I diabetes, seizures,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 He presented to the ED on 10/12/2024 after a fall. Of note, he had had influenza about 10 days earlier. He felt weak and had had some recurrence of left arm and leg weakness like he had with his astrocytoma. Emergency department evaluation showed hypoxia with need of oxygen at 2 L/min. Laboratory evaluation showed sodium 130, white blood cells 14.4, and negative testing for COVID/influenza/RSV. CT of head showed no acute process. CT of chest with PE protocol showed no PE. It did show right lower lung pneumonia and multiple liver lesions. Trace right pleural effusion was noted. He was started on Rocephin and Zithromax and admitted to the hospital for further cares. Antigen test for pneumococcal pneumonia and Legionella are negative. He was slow to improve. Oxygen needs increased to 5 L/min. Chestx-ray on 10/14 showed increasing right pleural effusion. He was sent for thoracentesis and only 100 mL of fluid was able to be obtained due to loculation. Pulmonary medicine was consulted. Hospital course was complicated by atrial fibrillation with rapidventricular response with heart rate in 140s. He had some relative hypotension with systolic blood pressure of around 95. He was transferred to the ICU for close monitoring and started on amiodarone infusion. Patient spontaneously converted to sinus rhythm at about 10 AM on 10/15/2024. Continues to have some paroxysms of atrial fibrillation. Now on oral amiodarone. Treating with as needed IV metoprolol and have transitioned from carvedilol to oral metoprolol for better rate controlwith good effect. Now primarily back in normal sinus rhythm. Chest tube was placed on 10/16 for loculated effusion. Received intra-tube TPA BID 10/20-10/23 to improve drainage Chest tube was removed on 10/24. Thoracic surgery was consulted and at this time no further intervention planned for pleural effusion and residual atelectasis/trapped lung on CT imaging. Thoracic surgery is arranging follow up in [address] at that time Today: Earlier had some episodes of atrial fibrillation with RVR- Most recent review of cardiac telemonitoring showed spontaneously converted to NSR Continue home regimen of metoprolol and maintenance amiodarone - -remain on DOAC -Highly appreciate input from neurology Magnesium and phosphorus normal. Check potassium levels - -Review of documentation and notes showed previous discussion as well with findings of liver massesand nodules that will be needing further workup and decisions earlier made to pursue this as an outpatient setting -Finishing up IV antibiotics with stop date for the end of the day today. -Discharge summary as documented by my colleague earlier problem list: Acute hypoxic respiratory failure Suspect postviral syndrome bacterial community-acquired pneumonia and right lower lung Right parapneumonic effusion Acute metabolic encephalopathy, likely related to above with falls -Was initially treated with Rocephin and Zithromax. This was changed to Zosyn on 10/14 -Hypoxia persists but oxygen rate seems to be going down. Continue to wean oxygen as able -Pulmonary consult for suspected right parapneumonic effusion -IR consult placed by pulmonary medicine for chest tube placement for complex right pleural effusion. -- Chest tube placed on 10/16. --cultures negative. Plan for 14 days of antibiotics. Currently on IV Zosyn since 10/14; stop date on 10/28 - receiving TPA vis chest tube BID 10/20-10/23 to treat loculated effusion with increased output from tube and decreasing effusion on imaging - repeat CXR on 10/22 and 10/23 - chest CT obtained 10/23 and shows improvement in pleural effusion with persistent R sided atelectasis -Chest tube removed on 10/24 -Thoracic surgery consulted for residual pleural effusion and atelectasis/trapped lung following chest tube drainage. At this time they do not recommend any further intervention, and will arrange follow-up in 1 month with repeat chest CT at that time Atrial fibrillation with rapid ventricular response Relative hypotension Previous aortic valve replacement for aortic valve regurgitation -Converted to sinus rhythm 10/15. -Transitioned from amiodarone infusion to oral amiodarone for 1 month on 10/16. -Intermittently back in A-fib with borderline rate control starting on 10/17. Transitioned from carvedilol 12.5 mg twice daily to Toprol-XL 50 mg twice daily with good effect and convresion back to NSR. 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 When he is ill he has recurrence of this weakness. He has had some recurrence of this weakness prior to presentation and during hospital stay. -Obtained MRI brain to ensure no stroke and assess for recurrent astrocytoma. MRI read done with apparent interval development of 1 cm linear focus of restricted diffusion posterior to his known right frontal resection cavity. Unclear if this is ischemia, posttreatment change or recurrence. Recommendation is for ongoing radiographic follow-up. -Continue prior to admission Lamictal Insulin-dependent diabetes: I note that he is chronically on metformin and also has an insulin pump. Hyperglycemia: Improved -Normally manages with insulin pump but has not been eating well or feeling well so this was stopped during hospital stay -Increased Lantus insulin to 30 units daily --prandial NovoLog to 2 unit for every 10 g of carbohydrates -Continue high intensity sliding scale Hyperlipidemia -Continue prior to admission ezetimibe Liver lesions -Noted on initial CT of chest -Patient and state that they were aware of these but I cannot find previous abdominal imaging -MRI obtained on 10/14 confirmed lesions raising question of metastatic disease -May need biopsy at some point. I would favor waiting until clinically improved. He follows in the [facility] system and this can likely be done as an outpatient. Consultations This Hospital Stay PHARMACY IP CONSULT PHARMACY TO [facility] PULMONARY IP CONSULT NUTRITION SERVICES ADULT IP CONSULT INTERVENTIONAL RADIOLOGY ADULT/PEDS IP CONSULT INTERVENTIONAL RADIOLOGY ADULT/PEDS IP CONSULT CARE MANAGEMENT / SOCIAL WORK IP CONSULT PHYSICAL THERAPY ADULT IP CONSULT OCCUPATIONAL THERAPY ADULT IP CONSULT SPIRITUAL HEALTH SERVICES IP CONSULT INTERVENTIONAL RADIOLOGY ADULT/PEDS IP CONSULT THORACIC SURGERY IP CONSULT NEUROLOGY IP STROKE CONSULT Code Status Full Code Time Spent on this Encounter I, Nisahnt Sands MD, MD, personally saw the patient today and spent greater than 30 minutes discharging this patient. Nishant Sands MD, MD [place] [address] MED[facility] [address] [facility] [address] Physical Exam Vital Signs: Temp: 97.6 ??F (36.4 ??C) Temp src: Oral BP: 137/60 Pulse: 71 Resp: 18 SpO2: (!) 91 % O2 Device: Nasal cannula Oxygen Delivery: 1/2 LPM Weight: 193 lbs 5.49 oz HEENT; Atraumatic, normocephalic, pinkish conjuctiva, pupils bilateral reactive Skin: warm and moist, no rashes Well-healed scar cranial area Lungs: equal chest expansion, clear to auscultation, no wheezes, no stridor, no crackles, Heart: normal rate, normal rhythm, no rubs or gallops. Abdomen: normal bowel sounds, no tenderness, no peritoneal signs, no guarding Extremities: no deformities, no edema Neuro; follow commands, alert and oriented x3, spontaneous speech, coherent, moves all extremities spontaneously Psych; no hallucination, euthymic mood, not agitated Primary Care Physician Wilber Vidales Discharge Orders Primary Care - Care Coordination Referral Reason for your hospital stay Acute respiratory failure due to right sided loculated pleural effusion, s/p chest tube drainage this admission Activity Your activity upon discharge: activity as tolerated Follow-up and recommended labs and tests See your primary provider in 1 week after discharge from rehabilitation center Follow up with thoracic surgery in 1 month. They will contact you to arrange an appointment and areplanning on repeat a chest CT scan at that time You were noted to have several liver nodules/masses on CT and MRI imaging of your abdomen this admission. Recommend follow up with your primary provider and consider biopsy for further evaluation (tohelp further characterize lesions and rule out malignancy). Please discuss this with your primary MD at next clinic visit who can help arrange this for you On brain MRI, you were found to have interval development of 1 cm linear focus of restricted diffusion posterior to the right frontal resection cavity. Differential considerations include acute ischemia, posttreatment change, or recurrence. Recommend continued radiographic follow-up. Diet Follow this diet upon discharge: regular diet Stroke Hospital Follow Up (for neurologist use only) [employer] will call you to coordinate care as prescribed by your provider. If you don???t hear from a manufacturers service representative within 2 business days, please call . DARY PATCH MAIL OUT Significant Results and Procedures Most Recent 3 CBC's: Recent Labs Lab Test 10/23/24 1304 10/22/24 0703 10/15/24 0545 WBC 10.8 9.1 10.7 HGB 12.6* 12.0* 12.9* MCV 89 89 87 PLT 306 325 240 Most Recent 3 BMP's: Recent Labs Lab Test 10/29/24 0832 10/29/24 0525 10/29/24 0151 10/28/24 0826 10/28/24 0618 10/23/24 1714 10/23/24 1304 10/22/24 0807 10/22/24 0703 10/19/24 0817 10/19/24 0634 10/18/24 0827 10/18/24 0633 NA -- -- -- -- -- -- 129* -- 130* -- -- -- 139 POTASSIUM -- -- -- -- 4.5 -- 4.6 -- 4.3 -- -- -- 3.4 CHLORIDE -- -- -- -- -- -- 94* -- 92* -- -- -- 99 CO2 -- -- -- -- -- -- 29 -- 30* -- -- -- 31* BUN -- -- -- -- -- -- 19.4 -- 14.7 -- -- -- 22.6 CR -- -- -- -- -- -- 0.75 -- 0.67 -- 0.78 -- 0.71 ANIONGAP -- -- -- -- -- -- 6* -- 8 -- -- -- 9 LUIS -- -- -- -- -- -- 7.9* -- 8.1* -- -- -- 8.5* GLC 109* 95 97 < > -- < > 150* < > 95 < > -- < > 117* < > = values in this interval not displayed. Most Recent 2 LFT's: Recent Labs Lab Test 10/14/24 1024 10/13/24 0701 AST 17 18 ALT 20 20 ALKPHOS 108 95 BILITOTAL 0.4 0.8 Most Recent 3 INR's: Recent Labs Lab Test 12/22/19 1515 12/08/19 1516 11/24/19 1519 INR 2.60* 3.20* 1.90* Most Recent TSH and T4: Recent Labs Lab Test 06/16/24 1416 TSH 2.21 T4 1.39 Most Recent Hemoglobin A1c: Recent Labs Lab Test 10/26/24 0713 A1C 7.5* Most Recent 6 glucoses: Recent Labs Lab Test 10/29/24 0832 10/29/24 0525 10/29/24 0151 10/28/24 2200 10/28/24 1718 10/28/24 1327 GLC 109* 95 97 147* 347* 217* Most Recent Urinalysis: Recent Labs Lab Test 10/12/24 1350 04/20/21 0941 COLOR Yellow Yellow APPEARANCE Clear Clear URINEGLC 150* >=1000* URINEBILI Negative Negative URINEKETONE Trace* Negative SG 1.010 1.015 UBLD Negative Negative URINEPH 6.0 6.0 PROTEIN 30* Negative UROBILINOGEN -- 0.2 NITRITE Negative Negative LEUKEST Negative Negative RBCU 1 -- WBCU 4 -- , Results for orders placed or performed during the hospital encounter of 10/12/24 CT Chest (PE) Abdomen Pelvis w Contrast Narrative EXAM: CT CHEST PE ABDOMEN PELVIS W CONTRAST LOCATION: [facility] DATE: 10/12/2024 INDICATION: Right inferior chest wall pain, RUQ abd pain, concern for PE vs rib fractures vs PNA vscholecystitis vs septic etiolgies COMPARISON: None. TECHNIQUE: CT chest pulmonary angiogram and routine CT abdomen pelvis with IV contrast. Arterial phase through the chest and venous phase through the abdomen and pelvis. Multiplanar reformats and MIPreconstructions were performed. Dose reduction techniques were used. [...] bilaterally. Bronchial wall thickening predominantly at the lungbases. MEDIASTINUM/AXILLAE: Heart is moderately enlarged. No mediastinal, axillary, or hilar adenopathy. CORONARY ARTERY CALCIFICATION: Moderate. HEPATOBILIARY: 4 x 3.3 cm ill-defined low-attenuation mass within segment 7 of the liver. 3.2 x 2.2cm mass noted within the caudate. 1.6 x [...] pelvis. MUSCULOSKELETAL: Degenerative changes of the spine. Impression IMPRESSION: 1. No pulmonary embolism. 2. Large consolidation at the right lung base with bilateral patchy airspace opacity within the lower lobes concerning for pneumonia. 3. Multiple low-attenuation lesions are noted within the liver which are indeterminant although cyst or metastatic disease. Further workup is suggested. CT Head w/o Contrast Narrative EXAM: CT HEAD W/O CONTRAST LOCATION: [facility] DATE: 10/12/2024 INDICATION: Fall, on eliquis, eval for ICH COMPARISON: Head CT 03/10/2022 TECHNIQUE: Routine CT Head without IV contrast. Multiplanar reformats. Dose reduction techniques were used. FINDINGS: INTRACRANIAL CONTENTS: No intracranial hemorrhage. Mild diffuse cerebral parenchymal volume loss. No midline shift. The basilar cisterns are patent. Moderate area of encephalomalacia involving the anterior parasagittal right frontal lobe. There is associated mild ex vacuo dilatation of the anterior horn of the right lateral ventricle. Small focus of encephalomalacia involving the anterior parasagittal left frontal lobe. Small chronic infarct in the left cingulate gyrus. Mild periventricular and scattered foci of deep white matter hypodensities involving both cerebral hemispheres. No CT evidence for an acute infarct. VISUALIZED ORBITS/SINUSES/MASTOIDS: No intraorbital abnormality. Mild mucosal thickening of the ethmoid air cells. No middle ear or mastoid effusion. BONES/SOFT TISSUES: Right frontal craniotomy changes. Impression IMPRESSION: 1. No intracranial hemorrhage, mass lesions, hydrocephalus or CT evidence for an acute infarct. 2. Mild diffuse cerebral parenchymal volume loss. Presumed chronic hypertensive/microvascular ischemic white matter changes. 3. Moderate area of encephalomalacia involving the anterior parasagittal right frontal lobe. There is associated mild ex vacuo dilatation of the anterior horn of the right lateral ventricle. Small focus of encephalomalacia involving the anterior parasagittal left frontal lobe. Small chronic infarct in the left cingulate gyrus. XR Chest Port 1 View Narrative EXAM: XR CHEST PORT 1 VIEW LOCATION: [facility] DATE: 10/14/2024 INDICATION: worsening hypoxia. previous xray history concerning for aspiration COMPARISON: PE chest CT with abdomen/pelvis with contrast 10/12/2024 Impression IMPRESSION: Enlarging now moderate right pleural effusion. Bibasilar patchy consolidations right greater than left, similar and again favoring multifocal pneumonia. Prior median sternotomy and cardiac valvular prosthesis. Stable enlarged heart. A component of pulmonary vascular congestion/interstitial edema may also be present. No pneumothorax.No acute osseous abnormality. US Thoracentesis Narrative EXAM: 1. RIGHT THORACENTESIS 2. ULTRASOUND GUIDANCE LOCATION: [facility] DATE: 10/14/2024 INDICATION: Pleural effusion. PROCEDURE: Informed consent obtained. Time out performed. The chest was prepped and draped in sterile fashion. 10 mL of 1 % lidocaine was infused into the local soft tissues. Under direct ultrasound guidance, a 5 Bahraini catheter system was placed into the pleural effusion. 0.1 liters of clear yellow fluid were removed and sent to lab, if requested. Patient tolerated procedure well. Ultrasound imaging was obtained and placed in the patient's permanent medical record. Impression IMPRESSION: Status post right ultrasound-guided thoracentesis. Reference CPT Code: 75211 MR Liver wo & w Contrast Narrative EXAM: MR LIVER W/O and W CONTRAST LOCATION: [facility] DATE: 10/14/2024 INDICATION: lesions seen on CT COMPARISON: None. TECHNIQUE: Routine MRI liver protocol including T1 in/out phase, diffusion, multiplane T2, and dynamic T1 with IV contrast. CONTRAST: 9 mL Gadavist FINDINGS: LIVER: Multifocal indeterminate lesions are noted, there may be some delayed internal enhancement on 3 minute imaging. Largest individual lesion is in the posterior right lobe measuring 3.8 cm. Thesedo not have T2 characteristics of simple cysts. Liver normal in size and configuration. ADDITIONAL FINDINGS: No significant findings in the gallbladder, spleen, pancreas, kidneys, and adrenal glands. No lymphadenopathy. No ascites. Impression IMPRESSION: 1. Multifocal indeterminate lesions in the liver. These do not have T2 characteristics of simple cysts. Differential includes metastatic disease, among other considerations. Recommend biopsy of the largest lesion in the posterior right lobe of the liver. 2. Abnormal findings requiring follow-up. MR Brain w/o & w Contrast Narrative EXAM: MR BRAIN W/O and W CONTRAST LOCATION: [facility] DATE: 10/15/2024 INDICATION: h o [...] There is persistent ex vacuo dilation of theright frontal horn, unchanged. Negative for hydrocephalus. Interval [...] disease. No middle ear or mastoid effusion. Impression IMPRESSION: 1. Interval development of 1 cm linear focus of restricted diffusion posterior to the right frontalresection cavity. Differential considerations include acute ischemia, posttreatment change, or recurrence. Recommend continued radiographic follow-up. 2. Otherwise similar appearance of the right frontal resection cavity. CT Chest w/o Contrast Narrative EXAM: CT CHEST W/O CONTRAST LOCATION: [facility] DATE: 10/15/2024 INDICATION: R pleural effusion COMPARISON: Chest x-ray yesterday and chest CT on 10/12/2024 TECHNIQUE: CT chest without IV contrast. Multiplanar reformats were obtained. Dose reduction techniques were used. CONTRAST: None. FINDINGS: LUNGS AND PLEURA: A escet-rw-uamqkaxm sized partly loculated right pleural effusion predominantly along the upper and mid right lung, increased in size since 10/12/2024. Similarly, small amount of loculated fluid in the right major fissure is new Small layering left pleural effusion is new. Dense atelectasis in the right lung base. New mild groundglass opacities in the left upper lobe and compressive atelectasis in the left lower lobe. MEDIASTINUM/AXILLAE: No lymphadenopathy. Mild cardiomegaly. Aortic valvular prosthesis. CORONARY ARTERY CALCIFICATION: Severe. UPPER ABDOMEN: Redemonstration of indeterminate lesions in the liver, better characterized by the MRI yesterday simple cyst in the left kidney. MUSCULOSKELETAL: Median sternotomy. No suspicious lesions in the bones. Impression IMPRESSION: 1. Increased size of a moderate right pleural effusion which is now partly loculated along the upper and mid right pleural surface, and new loculated fluid in the right major fissure. 2. New small left pleural effusion. 3. New mild groundglass opacities in the left lung, likely due to edema. Increased dense atelectasis and consolidation in the bilateral lung bases. 4. Partly visualized indeterminate hepatic lesions, better characterized by the recent MRI. US Chest Tube Insert Narrative PROCEDURE: Ultrasound guided right sided 10 Bahraini chest tube placement DATE: 10/16/2024 MEDICATIONS: 1% [...] Lidocaine. Under direct ultrasound guidance, a 5 Bahraini Yueh needle was advanced into the pleural space via an intercostal approach. The catheter was advanced off of the needle. A 0.035 guidewire was advanced through the micropuncture sheath and the tract was serially dilated. A 10 Bahraini locking loop chest tube was placed with the tip coiledin the pleural space. The catheter was sutured to the skin using 2-0 silk suture. A sterile dressing was applied. Approximately 20 mL of sero-sanguinous fluid was removed. The chest tube was connected to a Pleur-evac device in the interventional suite. Throughout the procedure, the patient was monitored by a radiology nurse for cardiac rhythm and oxygen saturation which remained stable. The patient tolerated the procedure well and left interventional radiology in stable condition. Impression IMPRESSION: Right-sided 10 Bahraini chest tube placement under ultrasound guidance. XR Chest Port 1 View Narrative EXAM: XR CHEST PORT 1 VIEW LOCATION: [facility] DATE: 10/17/2024 INDICATION: post right chest tube placement for right pleural effusion COMPARISON: 10/15/2024 Impression IMPRESSION: Decreased right pleural effusion with a right chest tube in place. Stable small left pleural effusion and bibasilar atelectasis. Median sternotomy and aortic valvular prosthesis. No pneumothorax. XR Chest Port 1 View Narrative EXAM: XR CHEST PORTABLE 1 VIEW LOCATION: [facility] DATE: 10/19/2024 INDICATION: Chest tube, follow-up effusion. COMPARISON: CT 10/15/2024, 10/17/2024. Impression IMPRESSION: Small bore right-sided thoracostomy tube in good position. Right- sided pleural fluid, decreased since prior with loculated pleural fluid along the lateral aspect of the right hemithorax and within the fissure. No definitive evidence for pneumothorax. Atelectasis both right and left lung bases. Normal heart size and pulmonary vascularity. Minimal pleural fluid left lung base. XR Chest Port 1 View Narrative EXAM: XR CHEST PORT 1 VIEW LOCATION: [facility] DATE: 10/22/2024 INDICATION: Pleural effusion, chest tube. COMPARISON: 10/19/2024, 10/15/2024. Impression IMPRESSION: A right-sided thoracostomy tube is present with the tip along the lateral aspect of theright midlung. There has been interval improvement in aeration of the right lung as well as decrease in right-sided pleural effusion. Bibasilar opacities persists with continued blunting of the costophrenic angles, right greater than left, suggestive ofsmall volume pleural effusions and adjacent atelectasis versus pneumonia. No sign of pneumothorax. Heart size is unchanged. Pulmonary vasculature is normal-appearing. Status post median sternotomy and cardiac valve repair. No acute osseous abnormality. XR Chest Port 1 View Narrative EXAM: XR CHEST PORT 1 VIEW LOCATION: [facility] DATE: 10/23/2024 INDICATION: pleural effusion, chest tube COMPARISON: 10/22/2024 Impression IMPRESSION: Right-sided thoracostomy tube is again seen [...] repair is unchanged. No acute bony abnormality. CT Chest w/o Contrast Narrative EXAM: CT CHEST W/O CONTRAST LOCATION: [facility] DATE: 10/23/2024 INDICATION: follow up R pleural effusion; s p chest tube placement COMPARISON: Chest CT 10/15/2024 TECHNIQUE: CT chest without IV contrast. Multiplanar reformats were obtained. Dose reduction techniques were used. CONTRAST: None. FINDINGS: LUNGS AND PLEURA: Decreased right pleural effusion, which appears loculated with the small to moderate-sized residual hydropneumothorax. The indwelling right- sided chest tube is partially retracted with the [...] MEDIASTINUM/AXILLAE: Right hilar adenopathy appears unchanged. A manufacturers service representative lymph node measures1.4 cm. No new lymphadenopathy. Mild cardiomegaly. Aortic valve replacement. Mild calcified atherosclerotic changes of the thoracic aorta which is mildly dilated measuring 4.2 cm. CORONARY ARTERY CALCIFICATION: Severe. UPPER ABDOMEN: Stable indeterminate low-attenuation hepatic lesions with a dominant, approximately 4.2 cm lesion within the medial aspect of the posterior segment. MUSCULOSKELETAL: Sternotomy. New edematous changes within the right lateral chest wall. Impression IMPRESSION: 1. Decreased right pleural effusion with [...] on the previous abdominal MRI from 10/14/2024. CT Head w/o Contrast Narrative EXAM: CT HEAD W/O CONTRAST LOCATION: [facility] DATE: 10/23/2024 INDICATION: Confusion, AMS [...] mastoid effusion. BONES/SOFT TISSUES: No acute abnormality. Impression IMPRESSION: 1. No acute intracranial abnormality. CTA Head Neck with Contrast Narrative EXAM: CTA HEAD NECK W CONTRAST LOCATION: [facility] DATE: 10/27/2024 INDICATION: Right frontal [...] retrograde filling. Moderate long-segment stenosis involving the proximalright vertebral artery immediately distal to the right PICA origin followed by mild-moderate stenosis involving its mid segment and moderate-severe stenoses distally near the vertebrobasilar confluence. Mild-moderate multifocal basilar artery stenoses. Mild multifocal likely atherosclerotic bilateral comparison shopper stenoses; patent P1-proximal P3 segment branches of the comparison shopper without high-grade stenosis. No aneurysm or high-flow vascular malformation. DURAL VENOUS SINUSES: Expected enhancement of the major dural venous sinuses. Please note that thisexam is not specifically tailored for the assessment of the intracranial venous structures. NECK CTA: RIGHT CAROTID: Moderate partially calcified slightly heterogeneous atherosclerotic plaque at the carotid bifurcation and ICA/ECA origins with mild- moderate ECA origin stenosis. Patent CCA and ICA without hemodynamically- significant stenosis. No dissection. LEFT CAROTID: No hemodynamically [...] encephalomalacia and surrounding gliosis involving the right frontallobe and underlying a right frontoparietal craniotomy, compatible with postoperative changes in thesetting of known astrocytoma. Exvacuodilatation of the body [...] effusion with compressive atelectasis. A partially imaged [id number]-sywadpli-nttmo left pleural effusion without evidence of loculation. Impression IMPRESSION: HEAD CTA: 1. No large vessel [...] or dissection. 3. Nonvascular findings, as described. Echocardiogram Complete Value LVEF 65-70% [facility] [id number]^JARETT^ANEL^[facility] [address] [place] [address] Name: ALENA RAE : 1960 Study Date: 10/27/2024 12:32 PM Age: 63 yrs Gender: Male Patient Location: [facility] Reason For Study: CVA Ordering Physician: ANEL LONG Performed By: Yoni Cintron RDCS BSA: 2.0 [...] Horacio Hernandez MD on 10/27/2024 02:55 PM Discharge Medications Current Discharge Medication List START taking these medications Details acetaminophen (TYLENOL) 325 MG tablet Take 2 tablets (650 mg) by mouth every 4 hours as needed for mild pain or other (and adjunct with moderate or severe pain or per patient request). Associated Diagnoses: RUQ abdominal pain amiodarone (PACERONE) 200 MG tablet Take 1 tablet (200 mg) by mouth daily for 14 days. Qty: 14 tablet, Refills: 0 Associated Diagnoses: Paroxysmal atrial fibrillation (H) atorvastatin (LIPITOR) 40 MG tablet Take 1 tablet (40 mg) by mouth every evening. Associated Diagnoses: 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 of right middle cerebral artery (H) !! insulin aspart (NOVOLOG FLEXPEN) 100 UNIT/ML pen 1 units per 15 gram carb unit before breakfast,lunch and dinner Associated Diagnoses: Type 1 diabetes mellitus with hyperglycemia (H) !! insulin aspart (NOVOLOG FLEXPEN) 100 UNIT/ML pen For Pre-Meal BG 140 - 189 give 1 unit. For Pre-Meal BG 190 - 239 give 2 units. For Pre-Meal BG 240 - 289 give 3 units. For Pre-Meal BG 290 - 339 give 4 units. For Pre-Meal BG 340- 389 give 5 units. For Pre-Meal BG 390-439 give 6 units For Pre-MealBG greater than or equal to 440 give 7 units. For BEDTIME: For BG 200 - 249 give 1 unit. For BG 250- 299 give 2 units. For BG 300 - 349 give 3 units. For BG 350 - 399 give 4 units. For BG greater than or equal to 400 give 5 units. Associated Diagnoses: Type 1 diabetes mellitus with hyperglycemia (H) metoprolol succinate ER (TOPROL XL) 50 MG 24 hr tablet Take 1 tablet (50 mg) by mouth 2 times daily. Associated Diagnoses: Paroxysmal atrial fibrillation (H) oxyCODONE (ROXICODONE) 5 MG tablet Take 1 tablet (5 mg) by mouth every 4 hours as needed for severepain. Qty: 10 tablet, Refills: 0 Associated Diagnoses: RUQ abdominal pain senna-docusate (SENOKOT-S/PERICOLACE) 8.6-50 MG tablet Take 1 tablet by mouth 2 times daily as needed for constipation. Associated Diagnoses: Drug-induced constipation !! - Potential duplicate medications found. Please discuss with provider. CONTINUE these medications which have CHANGED Details insulin glargine (LANTUS PEN) 100 UNIT/ML pen Inject 30 Units subcutaneously at bedtime. Comments: If Lantus is not covered by insurance, may substitute Basaglar or Semglee or other insulin glargine product per insurance preference at same dose and frequency. Associated Diagnoses: Type 1 diabetes mellitus with hyperglycemia (H) CONTINUE these medications which have NOT CHANGED Details apixaban ANTICOAGULANT (ELIQUIS ANTICOAGULANT) 5 MG tablet Take 1 tablet (5 mg) by mouth 2 times daily. Discontinue when bottle is completed and start ASA Associated Diagnoses: Paroxysmal atrial fibrillation (H) cholecalciferol (VITAMIN D3) 125 mcg (5000 units) capsule Take 125 mcg by mouth daily. Continuous Glucose Sensor (DEXCOM G7 SENSOR) MISC Change every 10 days. Qty: 9 each, Refills: 5 Associated Diagnoses: Type 1 diabetes mellitus with hyperglycemia (H) ezetimibe (ZETIA) 10 MG tablet Take 10 mg by mouth every evening. Insulin Disposable Pump (OMNIPOD 5 G7 PODS, GEN 5,) MISC 1 pod See Admin Instructions. Change every3 days Qty: 30 each, Refills: 3 Associated Diagnoses: Type 1 diabetes mellitus with hyperglycemia (H) INSULIN PUMP - OUTPATIENT Inject subcutaneously. Date Last Updated: 10/12/24 Omnipod BASAL RATES and times: Continuous (8614-2257: 0.9 units/hour CARB RATIO and times: 1695-7225: 1 unit for 10g of carbohydrates Corection Factor (Sensitivity) and times: 4960-5860: 1 unit lowers BG by 40 mg/dL BLOOD GLUCOSE TARGET and times: 110 - 120 mg/dL Active Insulin Time: 2.5 hours Sensor: Yes: lower limit = 70 mg/dL, upper limit = 180 mg/dL Changes pump q3d insulin syringe-needle U-100 (30G X 1/2 0.3 ML) 30G X 1/2 0.3 ML miscellaneous Use in the event of pump failure and need to administer manual injection. Qty: 10 each, Refills: 11 Associated Diagnoses: Type 1 diabetes mellitus with hyperglycemia (H) LAMOTRIGINE PO Take 300 mg by mouth 2 times daily lisinopril (ZESTRIL) 30 MG tablet Take 1 tablet (30 mg) by mouth daily. Qty: 90 tablet, Refills: 1 Associated Diagnoses: Benign essential hypertension Melatonin 10 MG TABS tablet Take 10 mg by mouth at bedtime. metFORMIN (GLUCOPHAGE) 500 MG tablet Take 1 tablet (500 mg) by mouth daily (with dinner) Qty: 90 tablet, Refills: 3 Associated Diagnoses: Elevated glucose Multiple Vitamins-Minerals (MENS MULTI VITAMIN & MINERAL PO) Take 1 tablet by mouth daily Psyllium (METAMUCIL FIBER PO) Take 1 Dose by mouth daily. sildenafil (VIAGRA) 100 MG tablet Take 1 tablet (100 mg) by mouth daily as needed (30 minutes priorto sexual activity) Qty: 12 tablet, Refills: 11 Associated Diagnoses: Vasculogenic erectile dysfunction, unspecified vasculogenic erectile dysfunction type tiZANidine (ZANAFLEX) 2 MG tablet TAKE 1-2 TABLETS BY MOUTH EVERY NIGHT AT BEDTIME NEEDED DIRECTED FOR LOW BACK PAIN* vitamin C (ASCORBIC ACID) 1000 MG TABS Take 1 tablet by mouth daily zinc gluconate 50 MG tablet Take 50 mg by mouth daily acetone urine (KETOSTIX) test strip Use to check urine ketones in the event of pump failure or unexplained blood glucoses over 250 and not resolving. Qty: 25 strip, Refills: 3 Associated Diagnoses: Type 1 diabetes mellitus with hyperglycemia (H) STOP taking these medications carvedilol (COREG) 12.5 MG tablet Comments: Reason for Stopping: insulin aspart (NOVOLOG VIAL) 100 UNITS/ML vial Comments: Reason for Stopping: modafinil (PROVIGIL) 200 MG tablet Comments: Reason for Stopping: Allergies Allergies Allergen Reactions Carbamazepine Rash Phenobarbital Phenytoin Rash high fever Valproic Acid Rash Procarbazine Rash Sulfa Antibiotics Rash * Wilber Torres MD - 10/27/2024 9:24 AM CDT [facility] Hospitalist Discharge Summary Date of Admission: 10/12/2024 Date of Discharge: 10/27/2024 Discharging Provider: Wilber Torres MD Discharge Service: Hospitalist Service Discharge Diagnoses Acute hypoxic respiratory failure Right sided loculated pleural effusion resulting in atelectasis/trapped lung - felt to be parapneumonic effusion -Treated with chest tube drainage this admission - cytology and culture of fluid negative -Thoracic surgery planning on follow-up clinic visit in 1 month with repeat chest CT scan - completed 14 day antibiotic course (Zosyn while hospitalized) Incidental finding of liver nodules/masses on CT imaging and MRI this admission, with largest lesion measuring 3.8 cm in posterior right lobe of the liver. - patient and spouse report this is a known diagnosis for several years. It has never been biopsied -Per radiology read Multifocal indeterminate lesions in the liver. These do not have T2 characteristics of simple cysts. Differential includes metastatic disease, among other considerations. Recommend biopsy of the largest lesion in the posterior right lobe of the liver. -Recommend follow-up with primary care provider and consider biopsy for further characterization History of brain astrocytoma status post resection -On brain MRI this admission, noted to have interval development of 1 cm linear focus of restricteddiffusion posterior to the right frontal resection cavity since most recent MRI performed 10/2023. Differential considerations include acute ischemia, posttreatment change, or recurrence. Recommend continued radiographic follow-up. - pt was seen by neurology given abnormal MRI and possible CVA prior to discharge to ARU. Neurologyrecommended to continue DOAC given history of atrial fibrillation and add atorvastatin. They also ordered a Ziopatch after discharge. Diabetes mellitus type 1. - Currently being treated with subcutaneous insulin while hospitalized. 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 as calculated from the following: Height as of this encounter: 1.753 m (5' 9). Weight as of this encounter: 87.7 kg (193 lb 5.5 oz). Follow-ups Needed After Discharge Follow-up Appointments Follow-up and recommended labs and tests See your primary provider in 1 week after discharge from rehabilitation center Follow up with thoracic surgery in 1 month. They will contact you to arrange an appointment and areplanning on repeat a chest CT scan at that time You were noted to have several liver nodules/masses on CT and MRI imaging of your abdomen this admission. Recommend follow up with your primary provider and consider biopsy for further evaluation (tohelp further characterize lesions and rule out malignancy). Please discuss this with your primary MD at next clinic visit who can help arrange this for you On brain MRI, you were found to have interval development of 1 cm linear focus of restricted diffusion posterior to the right frontal resection cavity. Differential considerations include acute ischemia, posttreatment change, or recurrence. Recommend continued radiographic follow-up. Unresulted Labs Ordered in the Past 30 Days of this Admission No orders found from 09/12/2024 to 10/13/2024. Discharge Disposition Discharged to rehabilitation facility Condition at discharge: Fair Hospital Course 63 year old male with history of type I diabetes, seizures, 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 He presented to the ED on 10/12/2024 after a fall. Of note, he had had influenza about 10 days earlier. He felt weak and had had some recurrence of left arm and leg weakness like he had with his astrocytoma. Emergency department evaluation showed hypoxia with need of oxygen at 2 L/min. Laboratory evaluation showed sodium 130, white blood cells 14.4, and negative testing for COVID/influenza/RSV. CT of head showed no acute process. CT of chest with PE protocol showed no PE. It did show right lower lung pneumonia and multiple liver lesions. Trace right pleural effusion was noted. He was started on Rocephin and Zithromax and admitted to the hospital for further cares. Antigen test for pneumococcal pneumonia and Legionella are negative. He was slow to improve. Oxygen needs increased to 5 L/min. Chest x-ray on 10/14 showed increasing right pleural effusion. He was sent for thoracentesis and only 100 mL of fluid was able to be obtained due to loculation. Pulmonary medicine was consulted. Hospital course was complicated by atrial fibrillation with rapidventricular response with heart rate in 140s. He had some relative hypotension with systolic blood pressure of around 95. He was transferred to the ICU for close monitoring and started on amiodarone infusion. Patient spontaneously converted to sinus rhythm at about 10 AM on 10/15/2024. Continues to have some paroxysms of atrial fibrillation. Now on oral amiodarone. Treating with as needed IV metoprolol and have transitioned from carvedilol to oral metoprolol for better rate control with good effect. Now primarily back in normal sinus rhythm. Plan to continue amiodarone for 14 more days, then discontinue Chest tube was placed on 10/16 for loculated effusion. Received intra-tube TPA BID 33-10/[id number] to improve drainage Chest tube was removed on 10/24. Thoracic surgery was consulted and at this time no further intervention planned for pleural effusion and residual atelectasis/trapped lung on CT imaging. Thoracic surgery is arranging follow up in [address] at that time Additionally, the patient completed a 14 day course of IV Zosyn while hospitalized. No need to continue additional antibiotics on discharge. At the time of discharge, patient has been weaned down to 2 L supplemental oxygen via nasal cannula. Patient being discharged to ARU for further rehab therapy Consultations This Hospital Stay PHARMACY IP CONSULT PHARMACY TO DOSE [facility] PULMONARY IP CONSULT NUTRITION SERVICES ADULT IP CONSULT INTERVENTIONAL RADIOLOGY ADULT/PEDS IP CONSULT INTERVENTIONAL RADIOLOGY ADULT/PEDS IP CONSULT CARE MANAGEMENT / SOCIAL WORK IP CONSULT PHYSICAL THERAPY ADULT IP CONSULT OCCUPATIONAL THERAPY ADULT IP CONSULT SPIRITUAL HEALTH SERVICES IP CONSULT INTERVENTIONAL RADIOLOGY ADULT/PEDS IP CONSULT THORACIC SURGERY IP CONSULT Code Status Full Code Time Spent on this Encounter I, Wilber Torres MD, personally saw the patient today and spent less than or equal to 30 minutes discharging this patient. Wilber Torres MD [place] [address] [facility] [address] [facility] [id number] Physical Exam Vital Signs: Temp: 98.5 ??F (36.9 ??C) Temp src: Oral BP: 128/76 Pulse: 73 Resp: 18 SpO2: 95 % O2 Device: Nasal cannula Oxygen Delivery: 2 LPM Weight: 193 lbs 5.49 oz Awake, alert, oriented x 3 Cardiovascular: Regular rate and rhythm Lung exam: Decreased breath sounds at the right. Clear to auscultation on the left Abdomen: Nontender/nondistended. Soft Primary Care Physician Wilber Vidales Discharge Orders Primary Care - Care Coordination Referral Reason for your hospital stay Acute respiratory failure due to right sided loculated pleural effusion, s/p chest tube drainage this admission Activity Your activity upon discharge: activity as tolerated Follow-up and recommended labs and tests See your primary provider in 1 week after discharge from rehabilitation center Follow up with thoracic surgery in 1 month. They will contact you to arrange an appointment and areplanning on repeat a chest CT scan at that time You were noted to have several liver nodules/masses on CT and MRI imaging of your abdomen this admission. Recommend follow up with your primary provider and consider biopsy for further evaluation (to help further characterize lesions and rule out malignancy). Please discuss this with your primary MD at next clinic visit who can help arrange this for you On brain MRI, you were found to have interval development of 1 cm linear focus of restricted diffusion posterior to the right frontal resection cavity. Differential considerations include acute ischemia, posttreatment change, or recurrence. Recommend continued radiographic follow-up. Diet Follow this diet upon discharge: regular diet Significant Results and Procedures Results for orders placed or performed during the hospital encounter of 10/12/24 CT Chest (PE) Abdomen Pelvis w Contrast Narrative EXAM: CT CHEST PE ABDOMEN PELVIS W CONTRAST LOCATION: [facility] DATE: 10/12/2024 INDICATION: Right inferior chest wall pain, RUQ abd pain, concern for PE vs rib fractures vs PNA vscholecystitis vs septic etiolgies COMPARISON: None. TECHNIQUE: CT chest pulmonary angiogram and routine CT abdomen pelvis with IV contrast. Arterial phase through the chest and venous phase through the abdomen and pelvis. Multiplanar reformats and MIPreconstructions were performed. Dose reduction techniques were used. [...] bilaterally. Bronchial wall thickening predominantly at the lungbases. MEDIASTINUM/AXILLAE: Heart is moderately enlarged. No mediastinal, axillary, or hilar adenopathy. CORONARY ARTERY CALCIFICATION: Moderate. HEPATOBILIARY: 4 x 3.3 cm ill-defined low-attenuation mass within segment 7 of the liver. 3.2 x 2.2cm mass noted within the caudate. 1.6 x [...] pelvis. MUSCULOSKELETAL: Degenerative changes of the spine. Impression IMPRESSION: 1. No pulmonary embolism. 2. Large consolidation at the right lung base with bilateral patchy airspace opacity within the lower lobes concerning for pneumonia. 3. Multiple low-attenuation lesions are noted within the liver which are indeterminant although cyst or metastatic disease. Further workup is suggested. CT Head w/o Contrast Narrative EXAM: CT HEAD W/O CONTRAST LOCATION: [facility] DATE: 10/12/2024 INDICATION: Fall, on eliquis, eval for ICH COMPARISON: Head CT 03/10/2022 TECHNIQUE: Routine CT Head without IV contrast. Multiplanar reformats. Dose reduction techniques were used. FINDINGS: INTRACRANIAL CONTENTS: No intracranial hemorrhage. Mild diffuse cerebral parenchymal volume loss. No midline shift. The basilar cisterns are patent. Moderate area of encephalomalacia involving the anterior parasagittal right frontal lobe. There is associated mild ex vacuo dilatation of the anterior horn of the right lateral ventricle. Small focus of encephalomalacia involving the anterior parasagittal left frontal lobe. Small chronic infarct in the left cingulate gyrus. Mild periventricular and scattered foci of deep white matter hypodensities involving both cerebral hemispheres. No CT evidence for an acute infarct. VISUALIZED ORBITS/SINUSES/MASTOIDS: No intraorbital abnormality. Mild mucosal thickening of the ethmoid air cells. No middle ear or mastoid effusion. BONES/SOFT TISSUES: Right frontal craniotomy changes. Impression IMPRESSION: 1. No intracranial hemorrhage, mass lesions, hydrocephalus or CT evidence for an acute infarct. 2. Mild diffuse cerebral parenchymal volume loss. Presumed chronic hypertensive/microvascular ischemic white matter changes. 3. Moderate area of encephalomalacia involving the anterior parasagittal right frontal lobe. Thereis associated mild ex vacuo dilatation of the anterior horn of the right lateral ventricle. Small focus of encephalomalacia involving the anterior parasagittal left frontal lobe. Small chronic infarct in the left cingulate gyrus. XR Chest Port 1 View Narrative EXAM: XR CHEST PORT 1 VIEW LOCATION: [facility] DATE: 10/14/2024 INDICATION: worsening hypoxia. previous xray history concerning for aspiration COMPARISON: PE chest CT with abdomen/pelvis with contrast 10/12/2024 Impression IMPRESSION: Enlarging now moderate right pleural effusion. Bibasilar patchy consolidations right greater than left, similar and again favoring multifocal pneumonia. Prior median sternotomy and cardiac valvular prosthesis. Stable enlarged heart. A component of pulmonary vascular congestion/interstitial edema may also be present. No pneumothorax.No acute osseous abnormality. US Thoracentesis Narrative EXAM: 1. RIGHT THORACENTESIS 2. ULTRASOUND GUIDANCE LOCATION: [facility] DATE: 10/14/2024 INDICATION: Pleural effusion. PROCEDURE: Informed consent obtained. Time out performed. The chest was prepped and draped in sterile fashion. 10 mL of 1 % lidocaine was infused into the local soft tissues. Under direct ultrasound guidance, a 5 [place]raini catheter system was placed into the pleural effusion. 0.1 liters of clear yellow fluid were removed and sent to lab, if requested. Patient tolerated procedure well. Ultrasound imaging was obtained and placed in the patient's permanent medical record. Impression IMPRESSION: Status post right ultrasound-guided thoracentesis. Reference CPT Code: 69418 MR Liver wo & w Contrast Narrative EXAM: MR LIVER W/O and W CONTRAST LOCATION: [facility] DATE: 10/14/2024 INDICATION: lesions seen on CT COMPARISON: None. TECHNIQUE: Routine MRI liver protocol including T1 in/out phase, diffusion, multiplane T2, and dynamic T1 with IV contrast. CONTRAST: 9 mL Gadavist FINDINGS: LIVER: Multifocal indeterminate lesions are noted, there may be some delayed internal enhancement on 3 minute imaging. Largest individual lesion is in the posterior right lobe measuring 3.8 cm. Thesedo not have T2 characteristics of simple cysts. Liver normal in size and configuration. ADDITIONAL FINDINGS: No significant findings in the gallbladder, spleen, pancreas, kidneys, and adrenal glands. No lymphadenopathy. No ascites. Impression IMPRESSION: 1. Multifocal indeterminate lesions in the liver. These do not have T2 characteristics of simple cysts. Differential includes metastatic disease, among other considerations. Recommend biopsy of the largest lesion in the posterior right lobe of the liver. 2. Abnormal findings requiring follow-up. MR Brain w/o & w Contrast Narrative EXAM: MR BRAIN W/O and W CONTRAST LOCATION: [facility] DATE: 10/15/2024 INDICATION: h o [...] There is persistent ex vacuo dilation of theright frontal horn, unchanged. Negative for hydrocephalus. Interval [...] disease. No middle ear or mastoid effusion. Impression IMPRESSION: 1. Interval development of 1 cm linear focus of restricted diffusion posterior to the right frontalresection cavity. Differential considerations include acute ischemia, posttreatment change, or recurrence. Recommend continued radiographic follow-up. 2. Otherwise similar appearance of the right frontal resection cavity. CT Chest w/o Contrast Narrative EXAM: CT CHEST W/O CONTRAST LOCATION: [facility] DATE: 10/15/2024 INDICATION: R pleural effusion COMPARISON: Chest x-ray yesterday and chest CT on 10/12/2024 TECHNIQUE: CT chest without IV contrast. Multiplanar reformats were obtained. Dose reduction techniques were used. CONTRAST: None. FINDINGS: LUNGS AND PLEURA: A [id number] sized partly loculated right pleural effusion predominantly along the upper and mid right lung, increased in size since 10/12/2024. Similarly, small amount of loculated fluid in the right major fissure is new Small layering left pleural effusion is new. Dense atelectasis in the right lung base. New mild groundglass opacities in the left upper lobe and compressive atelectasis in the left lower lobe. MEDIASTINUM/AXILLAE: No lymphadenopathy. Mild cardiomegaly. Aortic valvular prosthesis. CORONARY ARTERY CALCIFICATION: Severe. UPPER ABDOMEN: Redemonstration of indeterminate lesions in the liver, better characterized by the MRI yesterday simple cyst in the left kidney. MUSCULOSKELETAL: Median sternotomy. No suspicious lesions in the bones. Impression IMPRESSION: 1. Increased size of a moderate right pleural effusion which is now partly loculated along the upper and mid right pleural surface, and new loculated fluid in the right major fissure. 2. New small left pleural effusion. 3. New mild groundglass opacities in the left lung, likely due to edema. Increased dense atelectasis and consolidation in the bilateral lung bases. 4. Partly visualized indeterminate hepatic lesions, better characterized by the recent MRI. US Chest Tube Insert Narrative PROCEDURE: Ultrasound guided right sided 10 Bahraini chest tube placement DATE: 10/16/2024 MEDICATIONS: 1% [...] Lidocaine. Under direct ultrasound guidance, a 5 Bahraini Yueh needle was advanced into the pleural space via an intercostal approach. The catheter was advanced off of the needle. A 0.035 guidewire was advanced through the micropuncture sheath and the tract was serially dilated. A 10 [place]raini locking loop chest tube was placed with the tip coiledin the pleural space. The catheter was sutured to the skin using 2-0 silk suture. A sterile dressing was applied. Approximately 20 mL of sero-sanguinous fluid was removed. The chest tube was connected to a Pleur-evac device in the interventional suite. Throughout the procedure, the patient was monitored by a radiology nurse for cardiac rhythm and oxygen saturation which remained stable. The patient tolerated the procedure well and left interventional radiology in stable condition. Impression IMPRESSION: Right-sided 10 [place]raini chest tube placement under ultrasound guidance. XR Chest Port 1 View Narrative EXAM: XR CHEST PORT 1 VIEW LOCATION: [facility] DATE: 10/17/2024 INDICATION: post right chest tube placement for right pleural effusion COMPARISON: 10/15/2024 Impression IMPRESSION: Decreased right pleural effusion with a right chest tube in place. Stable small left pleural effusion and bibasilar atelectasis. Median sternotomy and aortic valvular prosthesis. No pneumothorax. XR Chest Port 1 View Narrative EXAM: XR CHEST PORTABLE 1 VIEW LOCATION: [facility] DATE: 10/19/2024 INDICATION: Chest tube, follow-up effusion. COMPARISON: CT 10/15/2024, 10/17/2024. Impression IMPRESSION: Small bore right-sided thoracostomy tube in good position. Right- sided pleural fluid, decreased since prior with loculated pleural fluid along the lateral aspect of the right hemithorax and within the fissure. No definitive evidence for pneumothorax. Atelectasis both right and left lung bases. Normal heart size and pulmonary vascularity. Minimal pleural fluid left lung base. XR Chest Port 1 View Narrative EXAM: XR CHEST PORT 1 VIEW LOCATION: [facility] DATE: 10/22/2024 INDICATION: Pleural effusion, chest tube. COMPARISON: 10/19/2024, 10/15/2024. Impression IMPRESSION: A right-sided thoracostomy tube is present with the tip along the lateral aspect of theright midlung. There has been interval improvement in aeration of the right lung as well as decrease in right-sided pleural effusion. Bibasilar opacities persists with continued blunting of the costophrenic angles, right greater than left, suggestive ofsmall volume pleural effusions and adjacent atelectasis versus pneumonia. No sign of pneumothorax. Heart size is unchanged. Pulmonary vasculature is normal-appearing. Status post median sternotomy and cardiac valve repair. No acute osseous abnormality. XR Chest Port 1 View Narrative EXAM: XR CHEST PORT 1 VIEW LOCATION: [facility] DATE: 10/23/2024 INDICATION: pleural effusion, chest tube COMPARISON: 10/22/2024 Impression IMPRESSION: Right-sided thoracostomy tube is again seen [...] repair is unchanged. No acute bony abnormality. CT Chest w/o Contrast Narrative EXAM: CT CHEST W/O CONTRAST LOCATION: [facility] DATE: 10/23/2024 INDICATION: follow up R pleural effusion; s p chest tube placement COMPARISON: Chest CT 10/15/2024 TECHNIQUE: CT chest without IV contrast. Multiplanar reformats were obtained. Dose reduction techniques were used. CONTRAST: None. FINDINGS: LUNGS AND PLEURA: Decreased right pleural effusion, which appears loculated with the small to moderate-sized residual hydropneumothorax. The indwelling right- sided chest tube is partially retracted with the [...] MEDIASTINUM/AXILLAE: Right hilar adenopathy appears unchanged. A manufacturers service representative lymph node measures1.4 cm. No new lymphadenopathy. Mild cardiomegaly. Aortic valve replacement. Mild calcified atherosclerotic changes of the thoracic aorta which is mildly dilated measuring 4.2 cm. CORONARY ARTERY CALCIFICATION: Severe. UPPER ABDOMEN: Stable indeterminate low-attenuation hepatic lesions with a dominant, approximately 4.2 cm lesion within the medial aspect of the posterior segment. MUSCULOSKELETAL: Sternotomy. New edematous changes within the right lateral chest wall. Impression IMPRESSION: 1. Decreased right pleural effusion with [...] on the previous abdominal MRI from 10/14/2024. CT Head w/o Contrast Narrative EXAM: CT HEAD W/O CONTRAST LOCATION: [facility] DATE: 10/23/2024 INDICATION: Confusion, AMS [...] mastoid effusion. BONES/SOFT TISSUES: No acute abnormality. Impression IMPRESSION: 1. No acute intracranial abnormality. Current Discharge Medication List START taking these medications Details acetaminophen (TYLENOL) 325 MG tablet Take 2 tablets (650 mg) by mouth every 4 hours as needed for mild pain or other (and adjunct with moderate or severe pain or per patient request). Associated Diagnoses: RUQ abdominal pain amiodarone (PACERONE) 200 MG tablet Take 1 tablet (200 mg) by mouth daily for 14 days. Qty: 14 tablet, Refills: 0 Associated Diagnoses: Paroxysmal atrial fibrillation (H) atorvastatin (LIPITOR) 40 MG tablet Take 1 tablet (40 mg) by mouth every evening. Associated Diagnoses: 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 of right middle cerebral artery (H) !! insulin aspart (NOVOLOG FLEXPEN) 100 UNIT/ML pen 1 units per 15 gram carb unit before breakfast,lunch and dinner Associated Diagnoses: Type 1 diabetes mellitus with hyperglycemia (H) !! insulin aspart (NOVOLOG FLEXPEN) 100 UNIT/ML pen For Pre-Meal BG 140 - 189 give 1 unit. For Pre-Meal BG 190 - 239 give 2 units. For Pre-Meal BG 240 - 289 give 3 units. For Pre-Meal BG 290 - 339 give 4 units. For Pre-Meal BG 340- 389 give 5 units. For Pre-Meal BG 390-439 give 6 units For Pre-MealBG greater than or equal to 440 give 7 units. For BEDTIME: For BG 200 - 249 give 1 unit. For BG 250- 299 give 2 units. For BG 300 - 349 give 3 units. For BG 350 - 399 give 4 units. For BG greater than or equal to 400 give 5 units. Associated Diagnoses: Type 1 diabetes mellitus with hyperglycemia (H) metoprolol succinate ER (TOPROL XL) 50 MG 24 hr tablet Take 1 tablet (50 mg) by mouth 2 times daily. Associated Diagnoses: Paroxysmal atrial fibrillation (H) oxyCODONE (ROXICODONE) 5 MG tablet Take 1 tablet (5 mg) by mouth every 4 hours as needed for severepain. Qty: 10 tablet, Refills: 0 Associated Diagnoses: RUQ abdominal pain senna-docusate (SENOKOT-S/PERICOLACE) 8.6-50 MG tablet Take 1 tablet by mouth 2 times daily as needed for constipation. Associated Diagnoses: Drug-induced constipation !! - Potential duplicate medications found. Please discuss with provider. CONTINUE these medications which have CHANGED Details insulin glargine (LANTUS PEN) 100 UNIT/ML pen Inject 30 Units subcutaneously at bedtime. Comments: If Lantus is not covered by insurance, may substitute Basaglar or Semglee or other insulin glargine product per insurance preference at same dose and frequency. Associated Diagnoses: Type 1 diabetes mellitus with hyperglycemia (H) CONTINUE these medications which have NOT CHANGED Details apixaban ANTICOAGULANT (ELIQUIS ANTICOAGULANT) 5 MG tablet Take 1 tablet (5 mg) by mouth 2 times daily. Discontinue when bottle is completed and start ASA Associated Diagnoses: Paroxysmal atrial fibrillation (H) cholecalciferol (VITAMIN D3) 125 mcg (5000 units) capsule Take 125 mcg by mouth daily. Continuous Glucose Sensor (DEXCOM G7 SENSOR) MISC Change every 10 days. Qty: 9 each, Refills: 5 Associated Diagnoses: Type 1 diabetes mellitus with hyperglycemia (H) ezetimibe (ZETIA) 10 MG tablet Take 10 mg by mouth every evening. Insulin Disposable Pump (OMNIPOD 5 G7 PODS, GEN 5,) MISC 1 pod See Admin Instructions. Change every3 days Qty: 30 each, Refills: 3 Associated Diagnoses: Type 1 diabetes mellitus with hyperglycemia (H) INSULIN PUMP - OUTPATIENT Inject subcutaneously. Date Last Updated: 10/12/24 Omnipod BASAL RATES and times: Continuous (: 0.9 units/hour CARB RATIO and times: : 1 unit for 10g of carbohydrates Corection Factor (Sensitivity) and times: : 1 unit lowers BG by 40 mg/dL BLOOD GLUCOSE TARGET and times: 110 - 120 mg/dL Active Insulin Time: 2.5 hours Sensor: Yes: lower limit = 70 mg/dL, upper limit = 180 mg/dL Changes pump q3d insulin syringe-needle U-100 (30G X 1/2 0.3 ML) 30G X 1/2 0.3 ML miscellaneous Use in the event of pump failure and need to administer manual injection. Qty: 10 each, Refills: 11 Associated Diagnoses: Type 1 diabetes mellitus with hyperglycemia (H) LAMOTRIGINE PO Take 300 mg by mouth 2 times daily lisinopril (ZESTRIL) 30 MG tablet Take 1 tablet (30 mg) by mouth daily. Qty: 90 tablet, Refills: 1 Associated Diagnoses: Benign essential hypertension Melatonin 10 MG TABS tablet Take 10 mg by mouth at bedtime. metFORMIN (GLUCOPHAGE) 500 MG tablet Take 1 tablet (500 mg) by mouth daily (with dinner) Qty: 90 tablet, Refills: 3 Associated Diagnoses: Elevated glucose Multiple Vitamins-Minerals (MENS MULTI VITAMIN & MINERAL PO) Take 1 tablet by mouth daily Psyllium (METAMUCIL FIBER PO) Take 1 Dose by mouth daily. sildenafil (VIAGRA) 100 MG tablet Take 1 tablet (100 mg) by mouth daily as needed (30 minutes priorto sexual activity) Qty: 12 tablet, Refills: 11 Associated Diagnoses: Vasculogenic erectile dysfunction, unspecified vasculogenic erectile dysfunction type tiZANidine (ZANAFLEX) 2 MG tablet TAKE 1-2 TABLETS BY MOUTH EVERY NIGHT AT BEDTIME NEEDED DIRECTED FOR LOW BACK PAIN* vitamin C (ASCORBIC ACID) 1000 MG TABS Take 1 tablet by mouth daily zinc gluconate 50 MG tablet Take 50 mg by mouth daily acetone urine (KETOSTIX) test strip Use to check urine ketones in the event of pump failure or unexplained blood glucoses over 250 and not resolving. Qty: 25 strip, Refills: 3 Associated Diagnoses: Type 1 diabetes mellitus with hyperglycemia (H) STOP taking these medications carvedilol (COREG) 12.5 MG tablet Comments: Reason for Stopping: insulin aspart (NOVOLOG VIAL) 100 UNITS/ML vial Comments: Reason for Stopping: modafinil (PROVIGIL) 200 MG tablet Comments: Reason for Stopping: Allergies Allergies Allergen Reactions Carbamazepine Rash Phenobarbital Phenytoin Rash high fever Valproic Acid Rash Procarbazine Rash Sulfa Antibiotics Rash documented in this encounter Discharge Instructions * Attachments The following attachments cannot be sent through Care Everywhere. * Stroke (Lebanese) * Stroke: Symptoms: General Info (Lebanese) * Mediterranean Diet: General Info (Lebanese) documented in this encounter Medications at Time of Discharge acetaminophen (TYLENOL) 325 MG tabletIndications: RUQ abdominal pain Take 2 tablets (650 mg) by mouth every 4 hours as needed for mild pain or other (and adjunct with moderate or severe pain or per patient request). 5 acetone urine (KETOSTIX) test stripIndications:T ype 1 diabetes mellitus with hyperglycemia (H) Use to check urine ketones in the event of pump failure or unexplained blood glucoses over 250 and not resolving. 25 strip 3 3 atorvastatin (LIPITOR) 40 MG tabletIndications: 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 of right middle cerebral artery (H) Take 1 tablet (40 mg) by mouth every evening. 5 cholecalciferol (VITAMIN D3) 125 mcg (5000 units) capsule Take 125 mcg by mouth daily. Continuous Glucose Sensor ([employer] G7 SENSOR) MISCIndications:Ty pe 1 diabetes mellitus with hyperglycemia (H) Change every 10 days. 9 each 5 4 ezetimibe (ZETIA) 10 MG tablet Take 10 mg by mouth every evening. Insulin Disposable Pump (OMNIPOD 5 G7 PODS, GEN 5,) MISCIndications:Ty pe 1 diabetes mellitus with hyperglycemia (H) 1 pod See Admin Instructions. Change every 3 days 30 each 3 4 insulin syringe-needle U-100 (30G X 1/2 0.3 ML) 30G X 1/2 0.3 ML miscellaneousIndic ations:Type 1 diabetes mellitus with hyperglycemia (H) Use in the event of pump failure and need to administer manual injection. 10 each 11 1 LAMOTRIGINE PO Take 300 mg by mouth 2 times daily 1 lisinopril (ZESTRIL) 30 MG tabletIndications: Benign essential hypertension Take 1 tablet (30 mg) by mouth daily. 90 tablet 1 4 magnesium oxide (MAG-OX) 400 MG tabletIndications: Ischemic stroke (H) Take 1 tablet (400 mg) by mouth daily. Supplement 30 tablet 5 Melatonin 10 MG TABS tablet Take 10 mg by mouth at bedtime. 0 metoprolol succinate ER (TOPROL XL) 50 MG 24 hr tabletIndications: Ischemic stroke (H) Take 1 tablet (50 mg) by mouth 2 times daily. 60 tablet 5 Multiple Vitamins-Minerals (MENS MULTI VITAMIN & MINERAL PO) Take 1 tablet by mouth daily oxyCODONE (ROXICODONE) 5 MG tabletIndications: Ischemic stroke (H) Take 1 tablet (5 mg) by mouth 2 times daily as needed for severe pain. 20 tablet 5 Psyllium (METAMUCIL FIBER PO) Take 1 Dose by mouth daily. sildenafil (VIAGRA) 100 MG tabletIndications: Vasculogenic erectile dysfunction, unspecified vasculogenic erectile dysfunction type Take 1 tablet (100 mg) by mouth daily as needed (30 minutes prior to sexual activity) 12 tablet 11 3 vitamin C (ASCORBIC ACID) 1000 MG TABS Take 1 tablet by mouth daily 1 zinc gluconate 50 MG tablet Take 50 mg by mouth daily 0 tiZANidine (ZANAFLEX) 2 MG tabletIndications: Ischemic stroke (H) Take 1-2 tablets (2-4 mg) by mouth every 8 hours as needed for muscle spasms. 90 tablet 5 12/05/19 25 amiodarone (PACERONE) 200 MG tabletIndications: Paroxysmal atrial fibrillation (H) Take 1 tablet (200 mg) by mouth daily for 14 days. 14 tablet 5 12/02/19 25 apixaban ANTICOAGULANT (ELIQUIS ANTICOAGULANT) 5 MG tabletIndications: Paroxysmal atrial fibrillation (H) Take 1 tablet (5 mg) by mouth 2 times daily. Discontinue when bottle is completed and start ASA 4 11/06/19 25 insulin aspart (NOVOLOG FLEXPEN) 100 UNIT/ML penIndications:Typ e 1 diabetes mellitus with hyperglycemia (H) 1 units per 15 gram carb unit before breakfast, lunch and dinner 5 11/05/19 25 insulin aspart (NOVOLOG FLEXPEN) 100 UNIT/ML penIndications:Typ e 1 diabetes mellitus with hyperglycemia (H) For Pre-Meal BG 140 - 189 give 1 unit. For Pre-Meal BG 190 - 239 give 2 units. For Pre-Meal BG 240 - 289 give 3 units. For Pre-Meal BG 290 - 339 give 4 units. For Pre-Meal BG 340- 389 give 5 units. For Pre-Meal BG 390-439 give 6 units For Pre-Meal BG greater than or equal to 440 give 7 units. For BEDTIME: For BG 200 - 249 give 1 unit. For BG 250 - 299 give 2 units. For BG 300 - 349 give 3 units. For BG 350 - 399 give 4 units. For BG greater than or equal to 400 give 5 units. 5 11/05/19 25 insulin glargine (LANTUS PEN) 100 UNIT/ML penIndications:Typ e 1 diabetes mellitus with hyperglycemia (H) Inject 30 Units subcutaneously at bedtime. 5 11/05/19 25 INSULIN PUMP - OUTPATIENT Inject subcutaneously. Date Last Updated: 10/12/24 Omnipod BASAL RATES and times: Continuous (7731-2113: 0.9 units/hour CARB RATIO and times: 6571-2980: 1 unit for 10g of carbohydrates Corection Factor (Sensitivity) and times: 2168-3532: 1 unit lowers BG by 40 mg/dL BLOOD GLUCOSE TARGET and times: 110 - 120 mg/dL Active Insulin Time: 2.5 hours Sensor: Yes: lower limit = 70 mg/dL, upper limit = 180 mg/dL Changes pump q3d 11/15/19 25 magnesium oxide (MAG-OX) 400 MG tabletIndications: Ischemic stroke (H) Supplement 30 tablet 5 11/05/19 25 metFORMIN (GLUCOPHAGE) 500 MG tabletIndications: Elevated glucose Take 1 tablet (500 mg) by mouth daily (with dinner) 90 tablet 3 4 11/15/19 25 metoprolol succinate ER (TOPROL XL) 50 MG 24 hr tabletIndications: Paroxysmal atrial fibrillation (H) Take 1 tablet (50 mg) by mouth 2 times daily. 5 11/05/19 25 oxyCODONE (ROXICODONE) 5 MG tabletIndications: Ischemic stroke (H) Take 1 tablet (5 mg) by mouth 2 times daily as needed for severe pain. 20 tablet 5 11/05/19 25 oxyCODONE (ROXICODONE) 5 MG tabletIndications: RUQ abdominal pain Take 1 tablet (5 mg) by mouth every 4 hours as needed for severe pain. 10 tablet 5 11/05/19 25 senna-docusate (SENOKOT-S/PERICOL JOANA) 8.6-50 MG tabletIndications: Drug-induced constipation Take 1 tablet by mouth 2 times daily as needed for constipation. 5 11/05/19 25 tiZANidine (ZANAFLEX) 2 MG tablet TAKE 1-2 TABLETS BY MOUTH EVERY NIGHT AT BEDTIME NEEDED DIRECTED FOR LOW BACK PAIN* 4 11/05/19 25 documented as of this encounter Progress Notes * Nishant Sands MD - 10/29/2024 1:23 PM CDT I was notified by nursing service regarding an apparent fall event while he was in the bedroom Assess and seen her patient bedside His was present as well during my encounter Alena stated that he actually did not fall but his legs buckled up as he was trying to throw some tissue paper in the bedroom. He endorses no head trauma, passing out spell, shortness of air, no obvious bony injuries. He is denying any discomfort or pain. No apparent seizure-like activity. Stable hemodynamics I think we can still proceed with plan hospital discharge with no further testing I was also notified by social service that ARU wanting doctors orders if patient can be transportedby family without oxygen support. Currently he is only needing half liter of oxygen. I think with this very minimal oxygen needs he can be transported without oxygen support going to ARU. I was informed that pursuing a ride besides private transport is cost prohibitive for our patient. * Kathryn Hu RD - 10/28/2024 8:55 AM CDT CLINICAL NUTRITION SERVICES - REASSESSMENT NOTE RECOMMENDATIONS FOR MDs/PROVIDERS TO ORDER: None at this time Malnutrition Status: Malnutrition Diagnosis: Patient does not meet two of the established criteria necessary for diagnosing malnutrition but is at risk for malnutrition Malnutrition Present on Admission: No Registered Dietitian Interventions: Oral intake encouragement appreciated - encouraged him to ask visitors to bring in foods for him toincrease intake (but to report to nurse if it contains fluid) Modified supplement order Continue MVI/M SUBJECTIVE INFORMATION Assessed patient in room. NEW FINDINGS Overnight issues with afib with brief RVR. CURRENT NUTRITION ORDERS Diet: 2000 mL Fluid Restriction, Glucerna BID CURRENT INTAKE/TOLERANCE Per flowsheet documentation: fluctuating intakes are documented, averaging >75% Per review of Health Touch: Patient is ordering 3 nutritionally adequate meals/day. Per patient report: Patient reports appetite has slightly improved. He says he isn't a big fan of the food here. He has been drinking [address] encouraged meal ordering, supplements, and increased intakes. Offered to adjust supplement order/flavor, patient requested to have 1 chocolate Glucerna and [address] [place] [address] adjusted. NEW FINDINGS Weight: stable during admission Vitals: 10/12/24 1040 10/15/24 0630 10/16/24 0533 10/23/24 1715 Weight: 87.6 kg (193 lb 2 oz) 81.5 kg (179 lb 11.2 oz) 80.5 kg (177 lb 7.5 oz) 87.7 kg (193 lb 5.5 oz) Skin/wounds: 1-2+ edema in ankles I/Os: 1 BM daily Nutrition-relevant labs: Reviewed Nutrition-relevant medications: insulin, lantus, metformin, MVI/M, metamucil MALNUTRITION % Weight Loss: Weight loss does not meet criteria % Intake: Decreased intake does not meet criteria Subcutaneous Fat Loss: Subcutaneous Fat Loss: Orbital: Mild -> not using with one indicator present Muscle Loss: None observed Fluid Accumulation/Edema: 1-2+ Malnutrition Diagnosis: Patient does not meet two of the established criteria necessary for diagnosing malnutrition but is at risk for malnutrition Malnutrition Present on Admission: No EVALUATION OF THE PROGRESS TOWARD GOALS Previous Goals Patient to consume 75-100% of nutritionally adequate meal trays TID, or the equivalent with supplements/snacks. Evaluation: Progressing Previous Nutrition Diagnosis Predicted inadequate oral intake related to appetite below baseline, diet restrictions, and potential for appetite to decrease further pending LOS. Evaluation: Improving NUTRITION DIAGNOSIS Inadequate oral intake related to dislike of hospital food as evidenced by documented fluctuating intakes, pt report. INTERVENTIONS Medical food supplement therapy Nutrition counseling strategies Vitamin and mineral supplement therapy Goals Patient to consume 75-100% of nutritionally adequate meal trays TID, or the equivalent with supplements/snacks. Monitoring/Evaluation Progress toward goals will be monitored and evaluated per policy. 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 He presented to the ED on 10/12/2024 after a fall. Of note, he had had influenza about 10 days earlier. He felt weak and had had some recurrence of left arm and leg weakness like he had with his astrocytoma. Emergency department evaluation showed hypoxia with need of oxygen at 2 L/min. Laboratory evaluation showed sodium 130, white blood cells 14.4, and negative testing for COVID/influenza/RSV. CT of head showed no acute process. CT of chest with PE protocol showed no PE. It did show right lower lung pneumonia and multiple liver lesions. Trace right pleural effusion was noted. He was started on Rocephin and Zithromax and admitted to the hospital for further cares. Antigen test for pneumococcal pneumonia and Legionella are negative. He was slow to improve. Oxygen needs increased to 5 L/min. Chest x-ray on 10/14 showed increasing right pleural effusion. He was sent for thoracentesis and only 100 mL of fluid was able to be obtained due to loculation. Pulmonary medicine was consulted. Hospital course was complicated by atrial fibrillation with rapidventricular response with heart rate in 140s. He had some relative hypotension with systolic blood pressure of around 95. He was transferred to the ICU for close monitoring and started on amiodarone infusion. Patient spontaneously converted to sinus rhythm at about 10 AM on 10/15/2024. Continues to have some paroxysms of atrial fibrillation. Now on oral amiodarone. Treating with as needed IV metoprolol and have transitioned from carvedilol to oral metoprolol for better rate controlwith good effect. Now primarily back in normal sinus rhythm. Chest tube was placed on 10/16 for loculated effusion. Received intra-tube TPA BID 10/20-10/23 to improve drainage Chest tube was removed on 10/24. Thoracic surgery was consulted and at this time no further intervention planned for pleural effusion and residual atelectasis/trapped lung on CT imaging. Thoracic surgery is arranging follow up in [address] at that time Today: Earlier had some episodes of atrial fibrillation with RVR- Most recent review of cardiac telemonitoring showed spontaneously converted to NSR Continue home regimen of metoprolol and maintenance amiodarone - -remain on DOAC -Highly appreciate input from neurology Magnesium and phosphorus normal. Check potassium levels - -Review of documentation and notes showed previous discussion as well with findings of liver massesand nodules that will be needing further workup and decisions earlier made to pursue this as an outpatient setting -Finishing up IV antibiotics with stop date for the end of the day today. -Discharge summary as documented by my colleague earlier problem list: Acute hypoxic respiratory failure Suspect postviral syndrome bacterial community-acquired pneumonia and right lower lung Right parapneumonic effusion Acute metabolic encephalopathy, likely related to above with falls -Was initially treated with Rocephin and Zithromax. This was changed to Zosyn on 10/14 -Hypoxia persists but oxygen rate seems to be going down. Continue to wean oxygen as able -Pulmonary consult for suspected right parapneumonic effusion -IR consult placed by pulmonary medicine for chest tube placement for complex right pleural effusion. -- Chest tube placed on 10/16. --cultures negative. Plan for 14 days of antibiotics. Currently on IV Zosyn since 10/14; stop date on 10/28 - receiving TPA vis chest tube BID 10/20-10/23 to treat loculated effusion with increased output from tube and decreasing effusion on imaging - repeat CXR on 10/22 and 10/23 - chest CT obtained 10/23 and shows improvement in pleural effusion with persistent R sided atelectasis -Chest tube removed on 10/24 -Thoracic surgery consulted for residual pleural effusion and atelectasis/trapped lung following chest tube drainage. At this time they do not recommend any further intervention, and will arrange follow-up in 1 month with repeat chest CT at that time Atrial fibrillation with rapid ventricular response Relative hypotension Previous aortic valve replacement for aortic valve regurgitation -Converted to sinus rhythm 10/15. -Transitioned from amiodarone infusion to oral amiodarone for 1 month on 10/16. -Intermittently back in A-fib with borderline rate control starting on 10/17. Transitioned from carvedilol 12.5 mg twice daily to Toprol-XL 50 mg twice daily with good effect and convresion back to NSR. 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 When he is ill he has recurrence of this weakness. He has had some recurrence of this weakness prior to presentation and during hospital stay. -Obtained MRI brain to ensure no stroke and assess for recurrent astrocytoma. MRI read done with apparent interval development of 1 cm linear focus of restricted diffusion posterior to his known right frontal resection cavity. Unclear if this is ischemia, posttreatment change or recurrence. Recommendation is for ongoing radiographic follow-up. -Continue prior to admission Lamictal Insulin-dependent diabetes: I note that he is chronically on metformin and also has an insulin pump. Hyperglycemia: Improved -Normally manages with insulin pump but has not been eating well or feeling well so this was stopped during hospital stay -Increased Lantus insulin to 30 units daily --prandial NovoLog to 2 unit for every 10 g of carbohydrates -Continue high intensity sliding scale Hyperlipidemia -Continue prior to admission ezetimibe Liver lesions -Noted on initial CT of chest -Patient and state that they were aware of these but I cannot find previous abdominal imaging -MRI obtained on 10/14 confirmed lesions raising question of metastatic disease -May need biopsy at some point. I would favor waiting until clinically improved. He follows in the [facility] system and this can likely be done as an outpatient. Diet: Fluid restriction 2000 ML FLUID Regular Diet Adult Snacks/Supplements Adult: Other; Strawb Glucerna at 10 AM and 2 PM; Between Meals Diet DVT Prophylaxis: DOAC Cai Catheter: Not present Lines: None Cardiac Monitoring: ACTIVE order. Indication: Tachyarrhythmias, acute (48 hours) Code Status: Full Code Clinically Significant Risk Factors # Hypoalbuminemia: Lowest albumin = 2.9 g/dL at 10/14/2024 10:24 AM, will monitor as appropriate # Hypertension: Noted on problem list # DMII: A1C = 7.5 % (Ref range: <5.7 %) within past 6 months # Overweight: Estimated body mass index is 28.55 kg/m?? as calculated from the following: Height as of this encounter: 1.753 m (5' 9). Weight as of this encounter: 87.7 kg (193 lb 5.5 oz). Social Drivers of Health Physical Activity: Insufficiently Active (07/12/2023) Exercise Vital Sign Days of Exercise per Week: 3 days Minutes of Exercise per Session: 30 min Stress: Patient Declined (07/12/2023) [place] [employer] - Occupational Stress Questionnaire Feeling of Stress : Patient declined Disposition Plan Medically Ready for Discharge: Anticipated Tomorrow if no further issues with recurrent A-fib with RVR Nishant Sands MD, Hospitalist Service [facility] Securely message with [employer] (more info) Text page via [facility] Paging/Directory Interval History I assumed medicine service care today. Seen and examined. Chart reviewed. Case discussed with nursing service. I met this gentleman this morning while he is laying comfortably in bed and fortunately endorsing no ongoing complaints. He remained interactive, conversational Overnight had some issues with recurrent atrial fibrillation with brief RVR. He is endorsing no chest pain or shortness of breath no nausea or vomiting. Remained afebrile. No escalation of oxygen needs. Physical Exam Vital Signs: Temp: 97.7 ??F (36.5 ??C) Temp src: Oral BP: (!) 146/88 Pulse: 86 Resp: 20 SpO2: 94 % O2 Device: Nasal cannula Oxygen Delivery: 1 LPM Weight: 193 lbs 5.49 oz HEENT; Atraumatic, normocephalic, pinkish conjuctiva, pupils bilateral reactive Skin: warm and moist, no rashes Well-healed scar cranial area Lungs: equal chest expansion, clear to auscultation, no wheezes, no stridor, no crackles, Heart: normal rate, normal rhythm, no rubs or gallops. Abdomen: normal bowel sounds, no tenderness, no peritoneal signs, no guarding Extremities: no deformities, no edema Neuro; follow commands, alert and oriented x3, spontaneous speech, coherent, moves all extremities spontaneously Psych; no hallucination, euthymic mood, not agitated Medical Decision Making 40 yes MINUTES SPENT BY ME on the date of service doing chart review, history, exam, documentation & further activities per the note. MANAGEMENT DISCUSSED with the following over the past 24 hours: yes NOTE(S)/MEDICAL RECORDS REVIEWED over the past 24 hours: Yes Data I have personally reviewed the following data over the past 24 hrs: TSH: N/A T4: N/A A1C: N/A Imaging results reviewed over the past 24 hrs: Recent Results (from the past 24 hours) Echocardiogram Complete Result Value LVEF 65-70% Narrative [id number]^JARETT^ANEL^Barry [facility] [address] [place] [id number] Name: ALENA RAE : 1960 Study Date: 10/27/2024 12:32 PM Age: 63 yrs Gender: Male Patient Location: [facility] Reason For Study: CVA Ordering Physician: ANEL LONG Performed By: Yoni Cintron RDCS BSA: 2.0 [...] Horacio Hernandez MD on 10/27/2024 02:55 PM CTA Head Neck with Contrast Narrative EXAM: CTA HEAD NECK W CONTRAST LOCATION: [facility] DATE: 10/27/2024 INDICATION: Right frontal [...] retrograde filling. Moderate long-segment stenosis involving the proximalright vertebral artery immediately distal to the right PICA origin followed by mild-moderate stenosis involving its mid segment and moderate-severe stenoses distally near the vertebrobasilar confluence. Mild-moderate multifocal basilar artery stenoses. Mild multifocal likely atherosclerotic bilateral comparison shopper stenoses; patent P1-proximal P3 segment branches of the comparison shopper without high-grade stenosis. No aneurysm or high-flow vascular malformation. DURAL VENOUS SINUSES: Expected enhancement of the major dural venous sinuses. Please note that thisexam is not specifically tailored for the assessment of the intracranial venous structures. NECK CTA: RIGHT CAROTID: Moderate partially calcified slightly heterogeneous atherosclerotic plaque at the carotid bifurcation and ICA/ECA origins with mild- moderate ECA origin stenosis. Patent CCA and ICA without hemodynamically- significant stenosis. No dissection. LEFT CAROTID: No hemodynamically [...] encephalomalacia and surrounding gliosis involving the right frontallobe and underlying a right frontoparietal craniotomy, compatible with postoperative changes in thesetting of known astrocytoma. Exvacuodilatation of the body [...] effusion with compressive atelectasis. A partially imaged [id number] left pleural effusion without evidence of loculation. Impression IMPRESSION: HEAD CTA: 1. No large vessel [...] or dissection. 3. Nonvascular findings, as described. * Nishant Sands MD - 10/28/2024 7:53 AM CDT I was notified earlier by cross coverage regarding episodes of atrial fibrillation with RVR Patient has known history of paroxysmal A-fib on chronic anticoagulation with DOAC Patient is on metoprolol and amiodarone . The hemodynamics are stable. Spoke with cardiac telemonitoring and reportedly patient converted back to normal sinus rhythm and currently demonstrating normal sinus rhythm. No significant malignantarrhythmias overnight. * Sirisha Wagn MD - 10/28/2024 6:28 AM CDT Cross cover pages patient's Apple Watch suspecting possible A-fib -Place patient on telemetry and monitor -EKG if irregular rhythm noted on telemetry Addendum Telemetry is showing A-fib with RVR -Patient with known history of A-fib -Patient has existing as needed order for metoprolol IV 5 mg for heart rate more than 120 Addendum Twelve-lead EKG ordered pending a.m. rounder to follow * Wilber Torres MD - 10/27/2024 9:21 AM CDT I saw and examined this patient today. He appears stable for discharge to ARU today Assuming insurance authorization completed, anticipate discharge to ARU today Addendum: ARU has requested a neurology consult to assess abnormal brain MRI earlier in hospitalization priorto transfer to ARU. Will place stroke neuro consult to assess if changes appear to be due to ischemia vs other Addendum: Neuro work up: no large vessel stenosis with intracranial atherosclerosis most notably involving the vertebrobasilar system including an indeterminate occlusion of the hypoplastic left vertebral artery distal to the left PICA origin on CTA of head/neck. TTE unremarkable. LDL 64 I communicated with Neurology regarding their recommendations. They have recommended to continue DOAC given history of atrial fibrillation and add atorvastatin (ordered). They are also ordering a Ziopatch after discharge. Addendum: - pt will complete his 14 day antibiotic course tomorrow. 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 He presented to the ED on 10/12/2024 after a fall. Of note, he had had influenza about 10 days earlier. He felt weak and had had some recurrence of left arm and leg weakness like he had with his astrocytoma. Emergency department evaluation showed hypoxia with need of oxygen at 2 L/min. Laboratory evaluation showed sodium 130, white blood cells 14.4, and negative testing for COVID/influenza/RSV. CT of head showed no acute process. CT of chest with PE protocol showed no PE. It did show right lower lung pneumonia and multiple liver lesions. Trace right pleural effusion was noted. He was started on Rocephin and Zithromax and admitted to the hospital for further cares. Antigen test for pneumococcal pneumonia and Legionella are negative. He was slow to improve. Oxygen needs increased to 5 L/min. Chest x-ray on 10/14 showed increasing right pleural effusion. He was sent for thoracentesis and only 100 mL of fluid was able to be obtained due to loculation. Pulmonary medicine was consulted. Hospital course was complicated by atrial fibrillation with rapidventricular response with heart rate in 140s. He had some relative hypotension with systolic blood pressure of around 95. He was transferred to the ICU for close monitoring and started on amiodarone infusion. Patient spontaneously converted to sinus rhythm at about 10 AM on 10/15/2024. Continues to have some paroxysms of atrial fibrillation. Now on oral amiodarone. Treating with as needed IV metoprolol and have transitioned from carvedilol to oral metoprolol for better rate controlwith good effect. Now primarily back in normal sinus rhythm. Chest tube was placed on 10/16 for loculated effusion. Received intra-tube TPA BID 10/20-10/23 to improve drainage Chest tube was removed on 10/24. Thoracic surgery was consulted and at this time no further intervention planned for pleural effusion and residual atelectasis/trapped lung on CT imaging. Thoracic surgery is arranging follow up in [address] at that time Today: -No significant changes made today - continue to wean supplemental oxygen as able - continue to mobilize -ARU being planned on discharge. At this point, no continued inpatient needs and can discharge to ARU when bed is found. Addendum: I returned to the patient's room this afternoon to update the patient and spouse. We discussed imaging he had earlier this hospitalization including MRI of the liver and the brain. We discussed the results of the MRI of the liver which showed multiple nodules and masses. Both the patient and the spouse report that he was diagnosed with this multiple years ago. These lesions have never been biopsied. He also discussed brain MRI showing new 1 cm abnormality compared to previous MRI from October 2023. Recommend repeating imaging to follow this up in the near future I provided patient and spouse a copy of the reports of both the liver MRI and brain MRI today Problem list: Acute hypoxic respiratory failure Suspect postviral syndrome bacterial community-acquired pneumonia and right lower lung Right parapneumonic effusion Acute metabolic encephalopathy, likely related to above with falls -Was initially treated with Rocephin and Zithromax. This was changed to Zosyn on 10/14 -Hypoxia persists but oxygen rate seems to be going down. Continue to wean oxygen as able -Pulmonary consult for suspected right parapneumonic effusion -IR consult placed by pulmonary medicine for chest tube placement for complex right pleural effusion. -- Chest tube placed on 10/16. --cultures negative. Plan for 14 days of antibiotics. Currently on IV Zosyn since 10/14; stop date on 10/28 - receiving TPA vis chest tube BID 10/20-10/23 to treat loculated effusion with increased output from tube and decreasing effusion on imaging - repeat CXR on 10/22 and 10/23 - chest CT obtained 10/23 and shows improvement in pleural effusion with persistent R sided atelectasis -Chest tube removed on 10/24 -Thoracic surgery consulted for residual pleural effusion and atelectasis/trapped lung following chest tube drainage. At this time they do not recommend any further intervention, and will arrange follow-up in 1 month with repeat chest CT at that time Atrial fibrillation with rapid ventricular response Relative hypotension Previous aortic valve replacement for aortic valve regurgitation -Converted to sinus rhythm 10/15. -Transitioned from amiodarone infusion to oral amiodarone for 1 month on 10/16. -Intermittently back in A-fib with borderline rate control starting on 10/17. Transitioned from carvedilol 12.5 mg twice daily to Toprol-XL 50 mg twice daily with good effect and convresion back to NSR. 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 When he is ill he has recurrence of this weakness. He has had some recurrence of this weakness prior to presentation and during hospital stay. -Obtained MRI brain to ensure no stroke and assess for recurrent astrocytoma. MRI read done with apparent interval development of 1 cm linear focus of restricted diffusion posterior to his known right frontal resection cavity. Unclear if this is ischemia, posttreatment change or recurrence. Recommendation is for ongoing radiographic follow-up. -Continue prior to admission Lamictal Insulin-dependent diabetes: I note that he is chronically on metformin and also has an insulin pump. Hyperglycemia: Improved -Normally manages with insulin pump but has not been eating well or feeling well so this was stopped during hospital stay -Increased Lantus insulin to 30 units daily --prandial NovoLog to 2 unit for every 10 g of carbohydrates -Continue high intensity sliding scale Hyperlipidemia -Continue prior to admission ezetimibe Liver lesions -Noted on initial CT of chest -Patient and state that they were aware of these but I cannot find previous abdominal imaging -MRI obtained on 10/14 confirmed lesions raising question of metastatic disease -May need biopsy at some point. I would favor waiting until clinically improved. He follows in the [facility] system and this can likely be done as an outpatient. Diet: Combination Diet Moderate Consistent Carb (60 g CHO per Meal) Diet Fluid restriction 2000 ML FLUID Snacks/Supplements Adult: Other; Stawb glucerna with B, Gelatein+ sanchez with L, strawb glucerna with D; With Meals DVT Prophylaxis: DOAC (placed on hold 10/20 as mentioned above) Cai Catheter: Not present Lines: None Cardiac Monitoring: ACTIVE order. Indication: Tachyarrhythmias, acute (48 hours) Code Status: Full Code Medically Ready for Discharge: Medically ready for discharge to ARU when bed is found Interval History (Subjective): No significant issues overnight. Remains on supplemental oxygen at 2 L via nasal cannula. Mobilizedin hallway this morning. Await insurance authorization for ARU placement Physical Exam: Last Vital Signs: BP 128/76 (BP Location: Right arm) Pulse 73 Temp 98.5 ??F (36.9 ??C) (Oral) Resp 18 Ht 1.753 m (5' 9) Wt 87.7 kg (193 lb 5.5 oz) SpO2 95% BMI 28.55 kg/m?? Intake/Output Summary (Last 24 hours) at 10/26/2024 0928 Last data filed at 10/26/2024 0850 Gross per 24 hour Intake 1440 ml Output 1600 ml Net -160 ml Constitutional: Awake, alert, cooperative, no apparent distress Respiratory: Decreased BS R lung Cardiovascular: Regular rate and rhythm, normal S1 and S2, and no murmur noted Abdomen: Normal bowel sounds, soft, non-distended, non-tender Skin: No rashes, no cyanosis, dry to touch Neuro: Alert and oriented x3, no weakness, numbness, memory loss Extremities: No edema, normal range of motion Other(s): All other systems: Negative Medications: All current medications were reviewed with changes reflected in problem list. Data: All new lab and imaging data was reviewed. Labs: Lab Results Component Value Date NA 129 10/23/2024 NA 130 10/22/2024 NA 139 10/18/2024 NA 134 10/04/2020 NA 137 07/01/2020 NA 133 09/22/2019 Lab Results Component Value Date CHLORIDE 94 10/23/2024 CHLORIDE 92 10/22/2024 CHLORIDE 99 10/18/2024 CHLORIDE 101 05/05/2022 CHLORIDE 93 03/12/2022 CHLORIDE 94 03/11/2022 CHLORIDE 98 10/04/2020 CHLORIDE 102 07/01/2020 CHLORIDE 97 09/22/2019 Lab Results Component Value Date BUN 19.4 10/23/2024 BUN 14.7 10/22/2024 BUN 22.6 10/18/2024 BUN 18 05/05/2022 BUN 13 03/12/2022 BUN 12 03/11/2022 BUN 20 10/04/2020 BUN 13 07/01/2020 BUN 18 09/22/2019 Lab Results Component Value Date POTASSIUM 4.6 10/23/2024 POTASSIUM 4.3 10/22/2024 POTASSIUM 3.4 10/18/2024 POTASSIUM 4.3 05/05/2022 POTASSIUM 4.4 03/12/2022 POTASSIUM 3.7 03/11/2022 POTASSIUM 4.1 10/04/2020 POTASSIUM 4.2 07/01/2020 POTASSIUM 4.2 09/22/2019 Lab Results Component Value Date CO2 29 10/23/2024 CO2 30 10/22/2024 CO2 31 10/18/2024 CO2 32 05/05/2022 CO2 30 03/12/2022 CO2 27 03/11/2022 CO2 31 10/04/2020 CO2 31 07/01/2020 CO2 32 09/22/2019 Lab Results Component Value Date CR 0.75 10/23/2024 CR 0.67 10/22/2024 CR 0.78 10/19/2024 CR 0.87 10/04/2020 CR 0.85 07/01/2020 CR 0.95 09/22/2019 Recent Labs Lab 10/23/24 1304 WBC 10.8 HGB 12.6* HCT 36.8* MCV 89 PLT 306 Imaging: No results found for this or any previous visit (from the past 24 hours). * Zoya Ndiaye LSW - 10/25/2024 10:02 AM CST Care Management Follow Up Length of Stay (days): 13 Expected Discharge Date: 10/27/2024 Concerns to be Addressed: discharge planning Patient plan of care discussed at interdisciplinary rounds: Yes Anticipated Discharge Disposition: ARU Additional Information: Called ARU as provider stated pt is medially stable for discharge. Rehab staff met with pt and family this week. Per Mona [facility]U has not started ins auth for Alena and will begin that today. Next Steps: Discharge pending Ins auth and bed availability. Do not anticipate d.c before Sunday YARON Muñoz Care mgt team [phone] CTOR VIDEO * Wilber Torres MD - 10/25/2024 9:48 AM CST [facility] Hospitalist Progress Note Wilber Torres MD 10/25/2024 Reason for Stay (Diagnosis): resp failure Assessment and Plan: Summary of Stay: Alena Rae is a 63 year old male with history of type I diabetes, seizures,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 He presented to the ED on 10/12/2024 after a fall. Of note, he had had influenza about 10 days earlier. He felt weak and had had some recurrence of left arm and leg weakness like he had with his astrocytoma. Emergency department evaluation showed hypoxia with need of oxygen at 2 L/min. Laboratory evaluation showed sodium 130, white blood cells 14.4, and negative testing for COVID/influenza/RSV. CT of head showed no acute process. CT of chest with PE protocol showed no PE. It did show right lower lung pneumonia and multiple liver lesions. Trace right pleural effusion was noted. He was started on Rocephin and Zithromax and admitted to the hospital for further cares. Antigen test for pneumococcal pneumonia and Legionella are negative. He was slow to improve. Oxygen needs increased to 5 L/min. Chest x-ray on 10/14 showed increasing right pleural effusion. He was sent for thoracentesis and only 100 mL of fluid was able to be obtained due to loculation. Pulmonary medicine was consulted. Hospital course was complicated by atrial fibrillation with rapidventricular response with heart rate in 140s. He had some relative hypotension with systolic blood pressure of around 95. He was transferred to the ICU for close monitoring and started on amiodarone infusion. Patient spontaneously converted to sinus rhythm at about 10 AM on 10/15/2024. Continues to have some paroxysms of atrial fibrillation. Now on oral amiodarone. Treating with as needed IV metoprolol and have transitioned from carvedilol to oral metoprolol for better rate controlwith good effect. Now primarily back in normal sinus rhythm. Chest tube was placed on 10/16 for loculated effusion. Received intra-tube TPA BID 10/20-10/23 to improve drainage Chest tube was removed on 10/24. Thoracic surgery was consulted and at this time no further intervention planned for pleural effusion and residual atelectasis/trapped lung on CT imaging. Thoracic surgery is arranging follow up in [address] at that time Today: -No significant changes made today -ARU being planned on discharge. At this point, no continued inpatient needs and can discharge to ARU when bed is found. D/w SW today Problem list: Acute hypoxic respiratory failure Suspect postviral syndrome bacterial community-acquired pneumonia and right lower lung Right parapneumonic effusion Acute metabolic encephalopathy, likely related to above with falls -Was initially treated with Rocephin and Zithromax. This was changed to Zosyn on 10/14 -Hypoxia persists but oxygen rate seems to be going down. Continue to wean oxygen as able -Pulmonary consult for suspected right parapneumonic effusion -IR consult placed by pulmonary medicine for chest tube placement for complex right pleural effusion. -- Chest tube placed on 10/16. --cultures negative. Plan for 10 days of Zosyn given slow improvement (stated 10/14), though defer to pulmonology if they feel a longer course is reasonable (for now pulm recommends to continue antibiotic). - receiving TPA vis chest tube BID 10/20-10/23 to treat loculated effusion with increased output from tube and decreasing effusion on imaging - repeat CXR on 10/22 and 10/23 - chest CT obtained 10/23 and shows improvement in pleural effusion with persistent R sided atelectasis -Chest tube removed on 10/24 -Thoracic surgery consulted for residual pleural effusion and atelectasis/trapped lung following chest tube drainage. At this time they do not recommend any further intervention, and will arrange follow-up in 1 month with repeat chest CT at that time Atrial fibrillation with rapid ventricular response Relative hypotension Previous aortic valve replacement for aortic valve regurgitation -Converted to sinus rhythm 10/15. -Transitioned from amiodarone infusion to oral amiodarone for 1 month on 10/16. -Intermittently back in A-fib with borderline rate control starting on 10/17. Transitioned from carvedilol 12.5 mg twice daily to Toprol-XL 50 mg twice daily with good effect and convresion back to NSR. 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 When he is ill he has recurrence of this weakness. He has had some recurrence of this weakness prior to presentation and during hospital stay. -Obtained MRI brain to ensure no stroke and assess for recurrent astrocytoma. MRI read done with apparent interval development of 1 cm linear focus of restricted diffusion posterior to his known right frontal resection cavity. Unclear if this is ischemia, posttreatment change or recurrence. Recommendation is for ongoing radiographic follow-up. -Continue prior to admission Lamictal Insulin-dependent diabetes: I note that he is chronically on metformin and also has an insulin pump. Hyperglycemia: Improved -Normally manages with insulin pump but has not been eating well or feeling well so this was stopped during hospital stay -Increased Lantus insulin to 30 units daily --prandial NovoLog to 2 unit for every 10 g of carbohydrates -Continue high intensity sliding scale Hyperlipidemia -Continue prior to admission ezetimibe Liver lesions -Noted on initial CT of chest -Patient and state that they were aware of these but I cannot find previous abdominal imaging -MRI obtained on 10/14 confirmed lesions raising question of metastatic disease -May need biopsy at some point. I would favor waiting until clinically improved. He follows in the [facility] system and this can likely be done as an outpatient. Diet: Combination Diet Moderate Consistent Carb (60 g CHO per Meal) Diet Fluid restriction 2000 ML FLUID Snacks/Supplements Adult: Other; Stawb glucerna with B, Gelatein+ sanchez with L, strawb glucerna with D; With Meals DVT Prophylaxis: DOAC (placed on hold 10/20 as mentioned above) Cai Catheter: Not present Lines: None Cardiac Monitoring: ACTIVE order. Indication: Tachyarrhythmias, acute (48 hours) Code Status: Full Code Medically Ready for Discharge: Medically ready for discharge to ARU when bed is found Interval History (Subjective): Chest tube removed yesterday. Patient feels well today. No complaints or concerns. No dyspnea. Physical Exam: Last Vital Signs: BP 120/70 (BP Location: Right arm) Pulse 74 Temp 98.6 ??F (37 ??C) (Oral) Resp 18 Ht 1.753 m (5' 9) Wt 87.7 kg (193 lb 5.5 oz) SpO2 96% BMI 28.55 kg/m?? Intake/Output Summary (Last 24 hours) at 10/25/2024 0958 Last data filed at 10/25/2024 0907 Gross per 24 hour Intake 1339 ml Output 2500 ml Net -1161 ml Constitutional: Awake, alert, cooperative, no apparent distress Respiratory: Decreased BS R lung. No tachypnea. No conversational dyspnea. Cardiovascular: Regular rate and rhythm, normal S1 and S2, and no murmur noted Abdomen: Normal bowel sounds, soft, non-distended, non-tender Skin: No rashes, no cyanosis, dry to touch Neuro: Alert and oriented x3, no weakness, numbness, memory loss Extremities: No edema, normal range of motion Other(s): All other systems: Negative Medications: All current medications were reviewed with changes reflected in problem list. Data: All new lab and imaging data was reviewed. Labs: Lab Results Component Value Date NA 129 10/23/2024 NA 130 10/22/2024 NA 139 10/18/2024 NA 134 10/04/2020 NA 137 07/01/2020 NA 133 09/22/2019 Lab Results Component Value Date CHLORIDE 94 10/23/2024 CHLORIDE 92 10/22/2024 CHLORIDE 99 10/18/2024 CHLORIDE 101 05/05/2022 CHLORIDE 93 03/12/2022 CHLORIDE 94 03/11/2022 CHLORIDE 98 10/04/2020 CHLORIDE 102 07/01/2020 CHLORIDE 97 09/22/2019 Lab Results Component Value Date BUN 19.4 10/23/2024 BUN 14.7 10/22/2024 BUN 22.6 10/18/2024 BUN 18 05/05/2022 BUN 13 03/12/2022 BUN 12 03/11/2022 BUN 20 10/04/2020 BUN 13 07/01/2020 BUN 18 09/22/2019 Lab Results Component Value Date POTASSIUM 4.6 10/23/2024 POTASSIUM 4.3 10/22/2024 POTASSIUM 3.4 10/18/2024 POTASSIUM 4.3 05/05/2022 POTASSIUM 4.4 03/12/2022 POTASSIUM 3.7 03/11/2022 POTASSIUM 4.1 10/04/2020 POTASSIUM 4.2 07/01/2020 POTASSIUM 4.2 09/22/2019 Lab Results Component Value Date CO2 29 10/23/2024 CO2 30 10/22/2024 CO2 31 10/18/2024 CO2 32 05/05/2022 CO2 30 03/12/2022 CO2 27 03/11/2022 CO2 31 10/04/2020 CO2 31 07/01/2020 CO2 32 09/22/2019 Lab Results Component Value Date CR 0.75 10/23/2024 CR 0.67 10/22/2024 CR 0.78 10/19/2024 CR 0.87 10/04/2020 CR 0.85 07/01/2020 CR 0.95 09/22/2019 Recent Labs Lab 10/23/24 1304 WBC 10.8 HGB 12.6* HCT 36.8* MCV 89 PLT 306 Imaging: No results found for this or any previous visit (from the past 24 hours). CTOR VIDEO * Enma Robledo RN - 10/24/2024 2:37 PM CST Chest tube removed at bedside per Radiologist and Hopsitalist, no longer indicated. Pt handled chest tube removal well. Site covered with petroleum, gauze and tegaderm transparent dressing. Bedside RN aware. Pt sitting upright in chair eating lunch after removal. CTOR VIDEO * Wilber Torres MD - 10/24/2024 1:59 PM CST Please see my progress note from earlier today Pulmonary recommends removal of chest tube by IR today (as IR placed tube) and thoracic surgery consult to address residual loculated effusion and atelectasis/trapped lung on CT imaging Will order IR and thoracic surgery consults Will resume Lovenox for AC for now (first dose at 2000 this evening); if thoracic surgery decides to pursue intervention Lovenox dose can be held. If no plans to pursue intervention would instead resume DOAC Addendum: I communicated with thoracic surgery. No plans for intervention at this time; they will arrange follow up in [address] imaging. Will discontinue Lovenox and resume Eliquis thisevening CTOR VIDEO CTOR VIDEO CTOR VIDEO CTOR VIDEO * Nima Acosta MD - 10/24/2024 1:51 PM CST [facility] Pulmonary, Allergy, Critical Care and Sleep Medicine Follow-up Note October 24, 2024 Assessment and Plan: Alena Rae is a 63 year old male with history of type I diabetes, seizures, 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 He presented to the ED on 10/12/2024 after a fall. He was found to be hypoxemic in the ED and CT of chest with PE protocol showed no PE. It did show right lower lung pneumonia and multiple liver lesions. Trace right pleural effusion was noted. He wasstarted on Rocephin and Zithromax and admitted to the hospital for further cares. Antigen test for pneumococcal pneumonia and Legionella are negative. #Acute hypoxic respiratory failure #Suspect postviral syndrome bacterial community-acquired pneumonia and right lower lung #Parapneumonic effusion based on CT chest on 10/12 s/p chest tube placement on 10/16, now s/p intrapleural tPA/DNase finished 10/23. # Right-sided nonexpandable lung. - CT scan done post tPA/DNase administration shows improvement in the right- sided pleural fluid. - Residual right-sided hydropneumothorax likely manufacturers service representative of partially explainable lung secondary to trapped lung. - Would recommend thoracic surgery opinion for the trapped lung management. - If managed conservatively, we will get a repeat chest in 2 to 3 months as an outpatient to document resolution. - Can remove the right-sided chest tube today. - Okay to resume his oral anticoagulation post intrapleural lytic administration - Continue current antibiotics. - Rest of the plan as per the primary team. Pulmonary will continue to follow. RHETT Grady [employer] r[employer] [facility] Pulmonary, Allergy, Critical Care and Sleep Medicine Pager - [phone] Interval History: - Completed 6 doses of intrapleural tPA/DNase. - Chest tube output of no chest tube output overnight after 11 PM. Output of close to a 1L seen prior to that yesterday. - CT chest done yesterday which showed right pleural effusion decreased with a small to moderate residual hydropneumothorax and retracted right-sided chest tube. Right lower lobe pneumonia consolidation persisted. - Patient states that his chest pain is slowly improving. Ambulated yesterday as well with no significant shortness of breath. - Currently on 3 LPM with O2 sats in the low 90s. Review of Systems: C: negative for fever, chills, change in weight INTEGUMENTARY/SKIN: no rash or obvious new lesions ENT/MOUTH: no sore throat, new sinus pain or nasal drainage RESP: see interval history CV: negative for chest pain, palpitations or peripheral edema GI: no nausea, vomiting, change in stools MUSCULOSKELETAL: no myalgias, arthralgias Medications: Current Facility-Administered Medications Medication Dose Route Frequency Provider Last Rate Last Admin amiodarone (PACERONE) tablet 200 mg 200 mg Oral BID Chris Suarez MD 200 mg at 10/24/24 0621 diclofenac (VOLTAREN) 1 % topical gel 2 g 2 g Topical 4x Daily Bernardino Garcia MD 2 g at 10/23/24 0832 ezetimibe (ZETIA) tablet 10 mg 10 mg Oral QPM Bernardino Garcia MD 10 mg at 10/23/24 2106 guaiFENesin (MUCINEX) 12 hr tablet 600 mg 600 mg Oral BID Bernardino Garcia MD 600 mg at 10/24/24 0926 insulin aspart (NovoLOG) injection (RAPID ACTING) 1-10 Units Subcutaneous TID AC Chris Suarez MD 5 Units at 10/24/24 0941 insulin aspart (NovoLOG) injection (RAPID ACTING) 1-7 Units Subcutaneous At Bedtime Chris Suarez MD 2 Units at 10/23/24 214 insulin aspart (NovoLOG) injection (RAPID ACTING) Subcutaneous TID w/meals Chris Suarez MD 10 Units at 10/24/24 0942 insulin glargine (LANTUS PEN) injection 30 Units 30 Units Subcutaneous At Bedtime Chris Suarez MD 30 Units at 10/23/24 214 lamoTRIgine (LaMICtal) tablet 300 mg 300 mg Oral BID Bernardino Garcia MD 300 mg at 10/24/24 0926 Lidocaine (LIDOCARE) 4 % Patch 1 patch 1 patch Transdermal Q24H Bernardino Garcia MD 1 patch at 10/24/24 0924 lisinopril (ZESTRIL) tablet 30 mg 30 mg Oral Daily Bernardino Garcia MD 30 mg at 10/22/24 0800 metFORMIN (GLUCOPHAGE) tablet 500 mg 500 mg Oral Daily with supper Bernardino Garcia MD 500 mg at 10/23/24 1715 metoprolol succinate ER (TOPROL XL) 24 hr tablet 50 mg 50 mg Oral BID Wilber Torres MD 50 mg at 10/24/24 0926 miconazole (MICATIN) 2 % powder Topical BID Chris Suarez MD Given at 10/23/24 2123 multivitamin w/minerals (THERA-VIT-M) tablet 1 tablet 1 tablet Oral Daily Bernardino Garcia MD 1 tablet at 10/24/24 0927 piperacillin-tazobactam (ZOSYN) 3.375 g vial to attach to NS 100 mL bag 3.375 g Intravenous Q6H Wilber Torres MD 200 mL/hr at 10/22/24 2152 3.375 g at 10/24/24 0937 psyllium (METAMUCIL/KONSYL) capsule 5 capsule 5 capsule Oral Daily Bernardino Garcia MD 5 capsule at 10/24/24 0926 sodium chloride (PF) 0.9% PF flush 3 mL 3 mL Intracatheter Q8H Bernardino Garcia MD 3 mL at 10/24/24 0056 Current Facility-Administered Medications Medication Dose Route Frequency Provider Last Rate Last Admin acetaminophen (TYLENOL) tablet 650 mg 650 mg Oral Q4H PRN Bernardino Garcia MD 650 mg at 10/24/24 0801 Or acetaminophen (TYLENOL) Suppository 650 mg 650 mg Rectal Q4H PRN Bernardino Garcia MD benzonatate (TESSALON) capsule 100 mg 100 mg Oral TID PRN Bernardino Garcai MD 100 mg at 10/15/24 0929 bisacodyl (DULCOLAX) suppository 10 mg 10 mg Rectal Daily PRN Bernardino Garcia MD 10 mg at 10/15/24 1158 calcium carbonate (TUMS) chewable tablet 1,000 mg 1,000 mg Oral 4x Daily PRN Bernardino Garcia MD carboxymethylcellulose PF (REFRESH PLUS) 0.5 % ophthalmic solution 1 drop 1 drop Both Eyes Q1H PRN Bernardino Garcia MD chlorproMAZINE (THORAZINE) tablet 50 mg 50 mg Oral TID PRN Wilber Torres MD 50 mg at 10/23/24 0520 glucose gel 15-30 g 15-30 g Oral Q15 Min PRN Bernardino Garcia MD Or dextrose 50 % injection 25-50 mL 25-50 mL Intravenous Q15 Min PRN Bernardino Garcia MD Or glucagon injection 1 mg 1 mg Subcutaneous Q15 Min PRN Bernardino Garcia MD HYDROmorphone (PF) (DILAUDID) injection 0.5 mg 0.5 mg Intravenous Q4H PRN Wilber Torres MD 0.5 mg at 10/23/24 2003 hydrOXYzine HCl (ATARAX) tablet 25 mg 25 mg Oral Q6H PRN Bernardino Garcia MD 25 mg at 10/24/24 0802 lidocaine (LMX4) cream Topical Q1H PRN Bernardino Garcia MD lidocaine 1 % 0.1-1 mL 0.1-1 mL Other Q1H PRN Bernardino Garcia MD metoprolol (LOPRESSOR) injection 5 mg 5 mg Intravenous Q4H PRN Chris Suarez MD naloxone (NARCAN) injection 0.2 mg 0.2 mg Intravenous Q2 Min PRN Bernardino Garcia MD Or naloxone (NARCAN) injection 0.4 mg 0.4 mg Intravenous Q2 Min PRN Bernardino Garcia MD Or naloxone (NARCAN) injection 0.2 mg 0.2 mg Intramuscular Q2 Min PRN Bernardino Garcia MD Or naloxone (NARCAN) injection 0.4 mg 0.4 mg Intramuscular Q2 Min PRN Bernardino Garcia MD ondansetron (ZOFRAN ODT) ODT tab 4 mg 4 mg Oral Q6H PRN Bernardino Garcia MD Or ondansetron (ZOFRAN) injection 4 mg 4 mg Intravenous Q6H PRN Bernardino Garcia MD oxyCODONE (ROXICODONE) tablet 5 mg 5 mg Oral Q4H PRN Bernardino Garcia MD 5 mg at 10/24/24 1236 senna-docusate (SENOKOT-S/PERICOLACE) 8.6-50 MG per tablet 1 tablet 1 tablet Oral BID PRN Bernardino Garcia MD 1 tablet at 10/15/24 0914 Or senna-docusate (SENOKOT-S/PERICOLACE) 8.6-50 MG per tablet 2 tablet 2 tablet Oral BID PRN Bernardino Garcia MD sodium chloride (PF) 0.9% PF flush 3 mL 3 mL Intracatheter q1 min prn Bernardino Garcia MD 3 mL at10/20/24 0330 tiZANidine (ZANAFLEX) tablet 2-4 mg 2-4 mg Oral Q8H PRN Bernardino Garcia MD 2 mg at 10/23/24 2121 Physical Exam: Temp: [97.4 ??F (36.3 ??C)-99.4 ??F (37.4 ??C)] 97.4 ??F (36.3 ??C) Pulse: [79-99] 79 Resp: [17-18] 18 BP: (100-128)/(59-81) 118/75 SpO2: [90 %-99 %] 94 % Intake/Output Summary (Last 24 hours) at 10/24/2024 1351 Last data filed at 10/24/2024 1200 Gross per 24 hour Intake 1680 ml Output 1575 ml Net 105 ml Constitutional: Awake, alert and in no apparent distress Eyes: nonicteric ENT: oral mucosa moist without lesions Neck: Supple without supraclavicular or cervical lymphadenopathy Lungs: Good air flow. No crackles. No rhonchi. No wheezes. Cardiovascular: Normal S1 and S2. RRR. No murmur, gallop or rub. Abdomen: NABS, soft, nontender, nondistended. No HSM. Musculoskeletal: No edema Neurologic: Alert and conversant. Skin: Warm, dry. No rash on limited exam. Data: All laboratory and imaging data reviewed. CMP Recent Labs Lab 10/24/24 1309 10/24/24 0941 10/24/24 0815 10/24/24 0625 10/24/24 0610 10/23/24 1714 10/23/24 1304 10/23/24 0844 10/23/24 0641 10/22/24 0807 10/22/24 0703 10/21/24 0906 10/21/24 0605 10/19/24 0817 10/19/24 0634 10/18/24 0827 10/18/24 0633 NA -- -- -- -- -- -- 129* -- -- -- 130* -- -- -- -- -- 139 POTASSIUM -- -- -- -- -- -- 4.6 -- -- -- 4.3 -- -- -- -- -- 3.4 CHLORIDE -- -- -- -- -- -- 94* -- -- -- 92* -- -- -- -- -- 99 CO2 -- -- -- -- -- -- 29 -- -- -- 30* -- -- -- -- -- 31* ANIONGAP -- -- -- -- -- -- 6* -- -- -- 8 -- -- -- -- -- 9 GLC 187* 241* 205* -- 76 < > 150* < > -- < > 95 < > -- < > -- < > 117* BUN -- -- -- -- -- -- 19.4 -- -- -- 14.7 -- -- -- -- -- 22.6 CR -- -- -- -- -- -- 0.75 -- -- -- 0.67 -- -- -- 0.78 -- 0.71 GFRESTIMATED -- -- -- -- -- -- >90 -- -- -- >90 -- -- -- >90 -- >90 LUIS -- -- -- -- -- -- 7.9* -- -- -- 8.1* -- -- -- -- -- 8.5* MAG -- -- -- 2.2 -- -- -- -- 2.0 -- 2.1 -- 2.2 < > 2.0 -- 2.1 PHOS -- -- -- 3.7 -- -- -- -- 3.4 -- 3.2 -- 3.8 < > 3.9 -- 4.1 < > = values in this interval not displayed. CBC Recent Labs Lab 10/23/24 1304 10/22/24 0703 WBC 10.8 9.1 RBC 4.14* 4.14* HGB 12.6* 12.0* HCT 36.8* 36.7* MCV 89 89 MCH 30.4 29.0 MCHC 34.2 32.7 RDW 12.3 12.2 PLT 306 325 INRNo lab results found in last 7 days. Arterial Blood Gas Recent Labs Lab 10/23/24 1304 O2PER 3 Urine Studies Recent Labs Lab Test 10/12/24 1350 04/20/21 0941 04/06/21 1222 06/20/19 1255 11/21/16 0745 URINEPH 6.0 6.0 5.5 6.0 8.0* NITRITE Negative Negative Negative Negative Negative LEUKEST Negative Negative Negative Negative Negative WBCU 4 -- <1 -- -- CMV viral loads No lab results found. No results found for: CMQNT, CMVQ EBV viral loads No lab results found. No results found for: EBVDN, EBRES, EBVSP, EBVPC, EBVPCR Respiratory Virus Testing No results found for: RS, FLUAG Sputum Culture last 3 months: Specimen Description Date Value Ref Range Status 07/04/2019 [facility] Final No results found for: CULT Attestation: I personally spent 55 minutes on the date of the encounter doing chart review, history and exam, documentation and further activities per the note. 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 He presented to the ED on 10/12/2024 after a fall. Of note, he had had influenza about 10 days earlier. He felt weak and had had some recurrence of left arm and leg weakness like he had with his astrocytoma. Emergency department evaluation showed hypoxia with need of oxygen at 2 L/min. Laboratory evaluation showed sodium 130, white blood cells 14.4, and negative testing for COVID/influenza/RSV. CT of head showed no acute process. CT of chest with PE protocol showed no PE. It did show right lower lung pneumonia and multiple liver lesions. Trace right pleural effusion was noted. He was started on Rocephin and Zithromax and admitted to the hospital for further cares. Antigen test for pneumococcal pneumonia and Legionella are negative. He was slow to improve. Oxygen needs increased to 5 L/min. Chest x-ray on 10/14 showed increasing right pleural effusion. He was sent for thoracentesis and only 100 mL of fluid was able to be obtained due to loculation. Pulmonary medicine was consulted. Hospital course was complicated by atrial fibrillation with rapidventricular response with heart rate in 140s. He had some relative hypotension with systolic blood pressure of around 95. He was transferred to the ICU for close monitoring and started on amiodarone infusion. Patient spontaneously converted to sinus rhythm at about 10 AM on 10/15/2024. Continues to have some paroxysms of atrial fibrillation. Now on oral amiodarone. Treating with as needed IV metoprolol and have transitioned from carvedilol to oral metoprolol for better rate controlwith good effect. Now primarily back in normal sinus rhythm. Chest tube was placed on 10/16 for loculated effusion and remains in place. Started intra-tube TPA BID on 10/20 to improve drainage Suspect at least a couple days more here for chest tube management, weaning oxygen etc. ARU is recommended on discharge Today: - completed intra-tube TPA (last dose morning of 10/23) - chest CT last night reviewed; pleural effusion improved with suspected persistent atelectasis in R lung. - consider resumption of DOAC if no plans for further intervention for pleural effusion -pulmonology to reassess patient today Addendum: I called spouse Baylee to update her today. There was no answer but I left a VM message discussing plan of care Problem list: Acute hypoxic respiratory failure Suspect postviral syndrome bacterial community-acquired pneumonia and right lower lung Right parapneumonic effusion Acute metabolic encephalopathy, likely related to above with falls -Was initially treated with Rocephin and Zithromax. This was changed to Zosyn on 10/14 -Hypoxia persists but oxygen rate seems to be going down. Continue to wean oxygen as able -Pulmonary consult for suspected right parapneumonic effusion -IR consult placed by pulmonary medicine for chest tube placement for complex right pleural effusion. -- Chest tube placed on 10/16. --cultures negative. Plan for 10 days of Zosyn given slow improvement (stated 10/14), though defer to pulmonology if they feel a longer course is reasonable (for now pulm recommends to continue antibiotic). - receiving TPA vis chest tube BID 10/20-10/23 to treat loculated effusion with increased output from tube and decreasing effusion on imaging - repeat CXR on 10/22 and 10/23 - chest CT obtained 10/23 and shows improvement in pleural effusion with persistent R sided atelectasis Atrial fibrillation with rapid ventricular response Relative hypotension Previous aortic valve replacement for aortic valve regurgitation -Converted to sinus rhythm 10/15. -Transitioned from amiodarone infusion to oral amiodarone for 1 month on 10/16. 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 Transitioned from carvedilol 12.5 mg twice daily to Toprol-XL 50 mg twice daily with good effect and convresion back to NSR. - Remains in NSR Hyponatremia: Resolved. 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 When he is ill he has recurrence of this weakness. He has had some recurrence of this weakness prior to presentation and during hospital stay. -Obtained MRI brain to ensure no stroke and assess for recurrent astrocytoma. MRI read done with apparent interval development of 1 cm linear focus of restricted diffusion posterior to his known right frontal resection cavity. Unclear if this is ischemia, posttreatment change or recurrence. Recommendation is for ongoing radiographic follow-up. -Continue prior to admission Lamictal Insulin-dependent diabetes: I note that he is chronically on metformin and also has an insulin pump. Hyperglycemia: Improved -Normally manages with insulin pump but has not been eating well or feeling well so this was stopped during hospital stay -Increased Lantus insulin to 30units daily --prandial NovoLog to 2 unit for every 10 g of carbohydrates -Continue high intensity sliding scale Hyperlipidemia -Continue prior to admission ezetimibe Liver lesions -Noted on initial CT of chest -Patient and state that they were aware of these but I cannot find previous abdominal imaging -MRI obtained on 10/14 confirmed lesions raising question of metastatic disease -May need biopsy at some point. I would favor waiting until clinically improved. He follows in the [facility] system and this can likely be done as an outpatient. Diet: Combination Diet Moderate Consistent Carb (60 g CHO per Meal) Diet Fluid restriction 2000 ML FLUID Snacks/Supplements Adult: Other; Stawb glucerna with B, Gelatein+ sanchez with L, strawb glucerna with D; With Meals DVT Prophylaxis: DOAC (placed on hold 10/20 as mentioned above) Cai Catheter: Not present Lines: None Cardiac Monitoring: ACTIVE order. Indication: Tachyarrhythmias, acute (48 hours) Code Status: Full Code Medically Ready for Discharge: Anticipated in 2-4 Days after pleural effusion resolved and chest tube removed. ARU being recommended on discharge by rehab therapy Interval History (Subjective): Feels much better than yesterday. Pain improved. On 3 liters supplemental oxygen Physical Exam: Last Vital Signs: BP 118/75 Pulse 79 Temp 97.4 ??F (36.3 ??C) (Oral) Resp 18 Ht 1.753 m (5' 9) Wt 87.7 kg (193 lb 5.5 oz) SpO2 94% BMI 28.55 kg/m?? Intake/Output Summary (Last 24 hours) at 10/24/2024 1106 Last data filed at 10/24/2024 0605 Gross per 24 hour Intake 1680 ml Output 1525 ml Net 155 ml Constitutional: Awake, alert, cooperative, no apparent distress Respiratory: Clear to auscultation bilaterally, no crackles or wheezing Cardiovascular: Regular rate and rhythm, normal S1 and S2, and no murmur noted Abdomen: Normal bowel sounds, soft, non-distended, non-tender Skin: No rashes, no cyanosis, dry to touch Neuro: Alert and oriented x3, no weakness, numbness, memory loss Extremities: No edema, normal range of motion Other(s): All other systems: Negative Medications: All current medications were reviewed with changes reflected in problem list. Data: All new lab and imaging data was reviewed. Labs: Lab Results Component Value Date NA 129 10/23/2024 NA 130 10/22/2024 NA 139 10/18/2024 NA 134 10/04/2020 NA 137 07/01/2020 NA 133 09/22/2019 Lab Results Component Value Date CHLORIDE 94 10/23/2024 CHLORIDE 92 10/22/2024 CHLORIDE 99 10/18/2024 CHLORIDE 101 05/05/2022 CHLORIDE 93 03/12/2022 CHLORIDE 94 03/11/2022 CHLORIDE 98 10/04/2020 CHLORIDE 102 07/01/2020 CHLORIDE 97 09/22/2019 Lab Results Component Value Date BUN 19.4 10/23/2024 BUN 14.7 10/22/2024 BUN 22.6 10/18/2024 BUN 18 05/05/2022 BUN 13 03/12/2022 BUN 12 03/11/2022 BUN 20 10/04/2020 BUN 13 07/01/2020 BUN 18 09/22/2019 Lab Results Component Value Date POTASSIUM 4.6 10/23/2024 POTASSIUM 4.3 10/22/2024 POTASSIUM 3.4 10/18/2024 POTASSIUM 4.3 05/05/2022 POTASSIUM 4.4 03/12/2022 POTASSIUM 3.7 03/11/2022 POTASSIUM 4.1 10/04/2020 POTASSIUM 4.2 07/01/2020 POTASSIUM 4.2 09/22/2019 Lab Results Component Value Date CO2 29 10/23/2024 CO2 30 10/22/2024 CO2 31 10/18/2024 CO2 32 05/05/2022 CO2 30 03/12/2022 CO2 27 03/11/2022 CO2 31 10/04/2020 CO2 31 07/01/2020 CO2 32 09/22/2019 Lab Results Component Value Date CR 0.75 10/23/2024 CR 0.67 10/22/2024 CR 0.78 10/19/2024 CR 0.87 10/04/2020 CR 0.85 07/01/2020 CR 0.95 09/22/2019 Recent Labs Lab 10/23/24 1304 WBC 10.8 HGB 12.6* HCT 36.8* MCV 89 PLT 306 Imaging: Recent Results (from the past 24 hours) CT Head w/o Contrast Narrative EXAM: CT HEAD W/O CONTRAST LOCATION: [facility] DATE: 10/23/2024 INDICATION: Confusion, AMS [...] mastoid effusion. BONES/SOFT TISSUES: No acute abnormality. Impression IMPRESSION: 1. No acute intracranial abnormality. CT Chest w/o Contrast Narrative EXAM: CT CHEST W/O CONTRAST LOCATION: [facility] DATE: 10/23/2024 INDICATION: follow up R pleural effusion; s p chest tube placement COMPARISON: Chest CT 10/15/2024 TECHNIQUE: CT chest without IV contrast. Multiplanar reformats were obtained. Dose reduction techniques were used. CONTRAST: None. FINDINGS: LUNGS AND PLEURA: Decreased right pleural effusion, which appears loculated with the small to moderate-sized residual hydropneumothorax. The indwelling right- sided chest tube is partially retracted with the [...] MEDIASTINUM/AXILLAE: Right hilar adenopathy appears unchanged. A manufacturers service representative lymph node measures1.4 cm. No new lymphadenopathy. Mild cardiomegaly. Aortic valve replacement. Mild calcified atherosclerotic changes of the thoracic aorta which is mildly dilated measuring 4.2 cm. CORONARY ARTERY CALCIFICATION: Severe. UPPER ABDOMEN: Stable indeterminate low-attenuation hepatic lesions with a dominant, approximately 4.2 cm lesion within the medial aspect of the posterior segment. MUSCULOSKELETAL: Sternotomy. New edematous changes within the right lateral chest wall. Impression IMPRESSION: 1. Decreased right pleural effusion with [...] on the previous abdominal MRI from 10/14/2024. CTOR VIDEO CTOR VIDEO * Tova Alberts, [facility] - 10/23/2024 3:01 PM CSTSummary: Discharge Plsanning Care Management Follow Up Length of Stay (days): 11 Expected Discharge Date: 10/24/2024 Concerns to be Addressed: discharge planning Patient plan of care discussed at interdisciplinary rounds: Yes Anticipated Discharge Disposition: ARU, Acute Rehab. Anticipated Discharge Services: Rehab Anticipated Discharge DME: Rehab will provide Patient/family educated on Medicare website which has current facility and service quality ratings:yes Education Provided on the Discharge Plan: yes Patient/Family in Agreement with the Plan: yes Referrals Placed by CM/SW: yes Private pay costs discussed: private room/amenity fees and transportation costs Discussed ???Partnership in Safe Discharge Planning??? document with patient/family: No Handoff Completed: No, handoff not indicated or clinically appropriate Additional Information: ARU manufacturers service representative met with patient today. They are following along for placement and qualifications for their program. Patient and are aboard for rehab. feels she can not care for himuntil he is stronger. SW met with to review ARU and TCU qualifications. also had questions regarding medical records as she thought it would be helpful for [facility] have his records from his previous MRI last year to compare. Informed her that what she was looking is in the medical records under Care Everywhere. Next Steps: SW will continue to assist with discharge. HERMAN Duran Preconstruction Manager Inpatient Care Coordination Glass Crusher Corporate Training Manager [facility] [phone] HERMAN Nicholson CTOR VIDEO * Tiarra Arnold CM - 10/23/2024 11:51 AM CST Rehab Admissions: Met with pt and to discuss referral to [facility] and provided them with informationincluding location, contact info, parking, visitor policy, room accommodations, meals, meds, ELOS, and about the intensive rehab program and close medical management. Pt is very independent at baseline, working from home, walking the dog, driving. 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 She reports pt is feeling worse today, more lethargic and weak. Reported her concerns to charge nurse who went to check on pt. Thank you for the referral, we will continue to follow this patient for post acute placement. Determination of admission is based upon the patient's need for an intensive, interdisciplinary approach to rehabilitation, their ability to progress, their ability to tolerate intensive therapies, their need for daily physician supervision, their need for twenty four hour nursing assistance, and their ability and willingness to participate in such a program. 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 He presented to the ED on 10/12/2024 after a fall. Of note, he had had influenza about 10 days earlier. He felt weak and had had some recurrence of left arm and leg weakness like he had with his astrocytoma. Emergency department evaluation showed hypoxia with need of oxygen at 2 L/min. Laboratory evaluation showed sodium 130, white blood cells 14.4, and negative testing for COVID/influenza/RSV. CT of head showed no acute process. CT of chest with PE protocol showed no PE. It did show right lower lung pneumonia and multiple liver lesions. Trace right pleural effusion was noted. He was started on Rocephin and Zithromax and admitted to the hospital for further cares. Antigen test for pneumococcal pneumonia and Legionella are negative. He was slow to improve. Oxygen needs increased to 5 L/min. Chest x-ray on 10/14 showed increasing right pleural effusion. He was sent for thoracentesis and only 100 mL of fluid was able to be obtained due to loculation. Pulmonary medicine was consulted. Hospital course was complicated by atrial fibrillation with rapidventricular response with heart rate in 140s. He had some relative hypotension with systolic blood pressure of around 95. He was transferred to the ICU for close monitoring and started on amiodarone infusion. Patient spontaneously converted to sinus rhythm at about 10 AM on 10/15/2024. Continues to have some paroxysms of atrial fibrillation. Now on oral amiodarone. Treating with as needed IV metoprolol and have transitioned from carvedilol to oral metoprolol for better rate controlwith good effect. Now primarily back in normal sinus rhythm. Chest tube was placed on 10/16 for loculated effusion and remains in place. Started intra-tube TPA BID on 10/20 to improve drainage Suspect at least a couple days more here for chest tube management, weaning oxygen etc. Today: - continue TPA being administered BID via chest tube to treat loculated pleural effusion; ordered through 10/23 (last dose this AM) - DOAC on hold for now while receiving TPA with blood in pleural fluid. Given recurrent afib this admit, recommend resumption when TPA administration completed -Patient having increasing pleuritic chest pain with increased output from chest tube this morning.Suspect pain may be related to lung reexpansion. Will order repeat chest x-ray for completeness to rule out pneumothorax, etc. I have also ordered a one-time dose of Toradol to assist with pain symptoms - chest tube output reviewed; 340 ml over past 24 hours (since midnight last night), and another 600 cc so far this morning -Discussed case with pulmonology yesterday. They recommend chest CT scan later today after final dose of tPA administered. I have ordered this for later today. Plan to keep chest tube in place until pulm gives OK to remove Addendum: pt more lethargic today with soft BP. Given significant chest tube output possibly volumedepleted Plan: - check CBC/BMP/VBG now - NS 1 liter bolus - check head CT for completeness (remains off DOAC for now) Addendum: lab results and imaging results above reviewed and unremarkable. BP improved with NS bolus. Will start NS 100 ml/hr x 15 hours Problem list: Acute hypoxic respiratory failure Suspect postviral syndrome bacterial community-acquired pneumonia and right lower lung Right parapneumonic effusion Acute metabolic encephalopathy, likely related to above with falls -Was initially treated with Rocephin and Zithromax. This was changed to Zosyn on 10/14 -Hypoxia persists but oxygen rate seems to be going down. Continue to wean oxygen as able -Pulmonary consult for suspected right parapneumonic effusion -IR consult placed by pulmonary medicine for chest tube placement for complex right pleural effusion. -- Chest tube placed on 10/16. --cultures negative. Plan for 10 days of Zosyn given slow improvement (stated 10/14), though defer to pulmonology if they feel a longer course is reasonable (for now pulm recommends to continue antibiotic). - receiving TPA vis chest tube BID 10/20-10/23 to treat loculated effusion with increased output from tube and decreasing effusion on imaging - repeat CXR on 10/22 and 10/23 Atrial fibrillation with rapid ventricular response Relative hypotension Previous aortic valve replacement for aortic valve regurgitation -Converted to sinus rhythm 10/15. -Transitioned from amiodarone infusion to oral amiodarone for 1 month on 10/16. 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 Transitioned from carvedilol 12.5 mg twice daily to Toprol-XL 50 mg twice daily with good effect and convresion back to NSR. - Remains in NSR Hyponatremia: Resolved. 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 When he is ill he has recurrence of this weakness. He has had some recurrence of this weakness prior to presentation and during hospital stay. -Obtained MRI brain to ensure no stroke and assess for recurrent astrocytoma. MRI read done with apparent interval development of 1 cm linear focus of restricted diffusion posterior to his known right frontal resection cavity. Unclear if this is ischemia, posttreatment change or recurrence. Recommendation is for ongoing radiographic follow-up. -Continue prior to admission Lamictal Insulin-dependent diabetes: I note that he is chronically on metformin and also has an insulin pump. Hyperglycemia: Improved -Normally manages with insulin pump but has not been eating well or feeling well so this was stopped during hospital stay -Increased Lantus insulin to 30units daily --prandial NovoLog to 2 unit for every 10 g of carbohydrates -Continue high intensity sliding scale Hyperlipidemia -Continue prior to admission ezetimibe Liver lesions -Noted on initial CT of chest -Patient and state that they were aware of these but I cannot find previous abdominal imaging -MRI obtained on 10/14 confirmed lesions raising question of metastatic disease -May need biopsy at some point. I would favor waiting until clinically improved. He follows in the [facility] system and this can likely be done as an outpatient. Diet: Combination Diet Moderate Consistent Carb (60 g CHO per Meal) Diet Fluid restriction 2000 ML FLUID Snacks/Supplements Adult: Other; Stawb glucerna with B, Gelatein+ sanchez with L, strawb glucerna with D; With Meals DVT Prophylaxis: DOAC (placed on hold 10/20 as mentioned above) Cai Catheter: Not present Lines: None Cardiac Monitoring: ACTIVE order. Indication: Tachyarrhythmias, acute (48 hours) Code Status: Full Code Medically Ready for Discharge: Anticipated in 2-4 Days after pleural effusion resolved and chest tube removed. ARU being recommended on discharge by rehab therapy Interval History (Subjective): Patient having increasing pleuritic right-sided chest pain today. Of note, had 600 cc output from chest tube this morning. Physical Exam: Last Vital Signs: BP 104/70 Pulse 89 Temp 98 ??F (36.7 ??C) (Oral) Resp 24 Ht 1.753 m (5' 9) Wt 80.5 kg (177 lb 7.5 oz) SpO2 98% BMI 26.21 kg/m?? Intake/Output Summary (Last 24 hours) at 10/23/2024 0929 Last data filed at 10/23/2024 0830 Gross per 24 hour Intake 880 ml Output 1440 ml Net -560 ml Constitutional: Awake, alert, cooperative, no apparent distress Respiratory: Clear to auscultation bilaterally, no crackles or wheezing Cardiovascular: Regular rate and rhythm, normal S1 and S2, and no murmur noted Abdomen: Normal bowel sounds, soft, non-distended, non-tender Skin: No rashes, no cyanosis, dry to touch Neuro: Alert and oriented x3, no weakness, numbness, memory loss Extremities: No edema, normal range of motion Other(s): All other systems: Negative Medications: All current medications were reviewed with changes reflected in problem list. Data: All new lab and imaging data was reviewed. Labs: Lab Results Component Value Date NA 130 10/22/2024 NA 139 10/18/2024 NA 131 10/15/2024 NA 134 10/04/2020 NA 137 07/01/2020 NA 133 09/22/2019 Lab Results Component Value Date CHLORIDE 92 10/22/2024 CHLORIDE 99 10/18/2024 CHLORIDE 95 10/15/2024 CHLORIDE 101 05/05/2022 CHLORIDE 93 03/12/2022 CHLORIDE 94 03/11/2022 CHLORIDE 98 10/04/2020 CHLORIDE 102 07/01/2020 CHLORIDE 97 09/22/2019 Lab Results Component Value Date BUN 14.7 10/22/2024 BUN 22.6 10/18/2024 BUN 27.6 10/15/2024 BUN 18 05/05/2022 BUN 13 03/12/2022 BUN 12 03/11/2022 BUN 20 10/04/2020 BUN 13 07/01/2020 BUN 18 09/22/2019 Lab Results Component Value Date POTASSIUM 4.3 10/22/2024 POTASSIUM 3.4 10/18/2024 POTASSIUM 4.0 10/15/2024 POTASSIUM 4.3 05/05/2022 POTASSIUM 4.4 03/12/2022 POTASSIUM 3.7 03/11/2022 POTASSIUM 4.1 10/04/2020 POTASSIUM 4.2 07/01/2020 POTASSIUM 4.2 09/22/2019 Lab Results Component Value Date CO2 30 10/22/2024 CO2 31 10/18/2024 CO2 23 10/15/2024 CO2 32 05/05/2022 CO2 30 03/12/2022 CO2 27 03/11/2022 CO2 31 10/04/2020 CO2 31 07/01/2020 CO2 32 09/22/2019 Lab Results Component Value Date CR 0.67 10/22/2024 CR 0.78 10/19/2024 CR 0.71 10/18/2024 CR 0.87 10/04/2020 CR 0.85 07/01/2020 CR 0.95 09/22/2019 Recent Labs Lab 10/22/24 0703 WBC 9.1 HGB 12.0* HCT 36.7* MCV 89 PLT 325 Imaging: Recent Results (from the past 24 hours) XR Chest Port 1 View Narrative EXAM: XR CHEST PORT 1 VIEW LOCATION: [facility] DATE: 10/23/2024 INDICATION: pleural effusion, chest tube COMPARISON: 10/22/2024 Impression IMPRESSION: Right-sided thoracostomy tube is again seen [...] repair is unchanged. No acute bony abnormality. 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 He presented to the ED on 10/12/2024 after a fall. He was found to be hypoxemic in the ED and CT of chest with PE protocol showed no PE. It did show right lower lung pneumonia and multiple liver lesions. Trace right pleural effusion was noted. He wasstarted on Rocephin and Zithromax and admitted to the hospital for further cares. Antigen test for pneumococcal pneumonia and Legionella are negative. #Acute hypoxic respiratory failure #Suspect postviral syndrome bacterial community-acquired pneumonia and right lower lung #Parapneumonic effusion based on CT chest on 10/12 s/p chest tube placement on 10/16 -Improved output post tPA/DNase administration. Will finish 3-day course. Last dose tomorrow 3/6 AM. - Okay to resume his oral anticoagulation post intrapleural lytic administration - Continue to monitor output through the chest tube and if bloody, would hold further doses. - Will get repeat chest CT post finishing the course. - Continue current antibiotics. - Rest of the plan as per the primary team. Pulmonary will continue to follow. RHETT Grady [employer] r[employer] [facility] Pulmonary, Allergy, Critical Care and Sleep Medicine Pager - [phone] Interval History: - Continued on intrapleural tPA/DNase. Increase chest tube output noted of 304 and 3 1 0 mL in the last 48 hours. - CXR from today shows improvement in the aeration of the right lung and decrease in the pleural effusion. - Continues on 1 LPM with O2 sats 95%. Review of Systems: C: negative for fever, chills, change in weight INTEGUMENTARY/SKIN: no rash or obvious new lesions ENT/MOUTH: no sore throat, new sinus pain or nasal drainage RESP: see interval history CV: negative for chest pain, palpitations or peripheral edema GI: no nausea, vomiting, change in stools MUSCULOSKELETAL: no myalgias, arthralgias Medications: Current Facility-Administered Medications Medication Dose Route Frequency Provider Last Rate Last Admin alteplase (ACTIVASE) 10 mg, dornase talia (PULMOZYME) 5 mg in sodium chloride 0.9 % 50 mL for chest tube instillation in syringe 50 mL Chest Tube BID Nima Acosta MD 50 mL at 10/22/24 0932 amiodarone (PACERONE) tablet 200 mg 200 mg Oral BID Chris Suarez MD 200 mg at 10/22/24 0607 diclofenac (VOLTAREN) 1 % topical gel 2 g 2 g Topical 4x Daily Bernardino Garcia MD 2 g at 10/22/24 0801 ezetimibe (ZETIA) tablet 10 mg 10 mg Oral QPM Bernardino Garcia MD 10 mg at 10/21/24 1928 guaiFENesin (MUCINEX) 12 hr tablet 600 mg 600 mg Oral BID Bernardino Garcia MD 600 mg at 10/22/24 0800 insulin aspart (NovoLOG) injection (RAPID ACTING) 1-10 Units Subcutaneous TID AC Chris Suarez MD 8 Units at 10/21/24 1801 insulin aspart (NovoLOG) injection (RAPID ACTING) 1-7 Units Subcutaneous At Bedtime Chris Suarez MD 2 Units at 10/21/24 2200 insulin aspart (NovoLOG) injection (RAPID ACTING) Subcutaneous TID w/meals Chris Suarez MD 6 Units at 10/22/24 0931 insulin glargine (LANTUS PEN) injection 30 Units 30 Units Subcutaneous At Bedtime Chris Suarez MD 30 Units at 10/21/24 2201 lamoTRIgine (LaMICtal) tablet 300 mg 300 mg Oral BID Bernardino Garcia MD 300 mg at 10/22/24 0800 Lidocaine (LIDOCARE) 4 % Patch 1 patch 1 patch Transdermal Q24H Bernardino Garcia MD 1 patch at 10/22/24 0758 lisinopril (ZESTRIL) tablet 30 mg 30 mg Oral Daily Bernardino Garcia MD 30 mg at 10/22/24 0800 metFORMIN (GLUCOPHAGE) tablet 500 mg 500 mg Oral Daily with supper Bernardino Garcia MD 500 mg at 10/21/24 1702 metoprolol succinate ER (TOPROL XL) 24 hr tablet 50 mg 50 mg Oral BID Chris Suarez MD 50 mg at 10/22/24 0800 miconazole (MICATIN) 2 % powder Topical BID Chris Suarez MD Given at 10/22/24 0801 multivitamin w/minerals (THERA-VIT-M) tablet 1 tablet 1 tablet Oral Daily Bernardino Garcia MD 1 tablet at 10/22/24 0801 piperacillin-tazobactam (ZOSYN) 3.375 g vial to attach to NS 100 mL bag 3.375 g Intravenous Q6H Chris Suarez MD 200 mL/hr at 10/21/24 2204 3.375 g at 10/22/24 0932 psyllium (METAMUCIL/KONSYL) capsule 5 capsule 5 capsule Oral Daily Bernardino Garcia MD 5 capsule at 10/22/24 0800 sodium chloride (PF) 0.9% PF flush 3 mL 3 mL Intracatheter Q8H Bernardino Garcia MD 3 mL at 10/22/24 0806 Current Facility-Administered Medications Medication Dose Route Frequency Provider Last Rate Last Admin acetaminophen (TYLENOL) tablet 650 mg 650 mg Oral Q4H PRN Bernardino Garcia MD 650 mg at 10/22/24 0759 Or acetaminophen (TYLENOL) Suppository 650 mg 650 mg Rectal Q4H PRN Bernardino Garcia MD benzonatate (TESSALON) capsule 100 mg 100 mg Oral TID PRN Bernardino Garcia MD 100 mg at 10/15/24 0929 bisacodyl (DULCOLAX) suppository 10 mg 10 mg Rectal Daily PRN Bernardino Garcia MD 10 mg at 10/15/24 1158 calcium carbonate (TUMS) chewable tablet 1,000 mg 1,000 mg Oral 4x Daily PRN Bernardino Garcia MD carboxymethylcellulose PF (REFRESH PLUS) 0.5 % ophthalmic solution 1 drop 1 drop Both Eyes Q1H PRN Bernardino Garcia MD chlorproMAZINE (THORAZINE) tablet 50 mg 50 mg Oral TID PRN Wilber Torres MD 50 mg at 10/22/24 0959 glucose gel 15-30 g 15-30 g Oral Q15 Min PRN Bernardino Garcia MD Or dextrose 50 % injection 25-50 mL 25-50 mL Intravenous Q15 Min PRN Bernardino Garcia MD Or glucagon injection 1 mg 1 mg Subcutaneous Q15 Min PRN Bernardino Garcia MD HYDROmorphone (PF) (DILAUDID) injection 0.5 mg 0.5 mg Intravenous Q4H PRN Wilber Torres MD 0.5 mg at 10/22/24 0932 hydrOXYzine HCl (ATARAX) tablet 25 mg 25 mg Oral Q6H PRN Bernardino Garcia MD 25 mg at 10/14/24 1141 lidocaine (LMX4) cream Topical Q1H PRN Bernardino Garcia MD lidocaine 1 % 0.1-1 mL 0.1-1 mL Other Q1H PRN Bernardino Garcia MD lidocaine 1 % 1-30 mL 1-30 mL Intradermal Once PRN Joanna León APRN CNP metoprolol (LOPRESSOR) injection 5 mg 5 mg Intravenous Q4H PRN Chris Suarez MD naloxone (NARCAN) injection 0.2 mg 0.2 mg Intravenous Q2 Min PRN Bernardino Garcia MD Or naloxone (NARCAN) injection 0.4 mg 0.4 mg Intravenous Q2 Min PRN Bernardino Garcia MD Or naloxone (NARCAN) injection 0.2 mg 0.2 mg Intramuscular Q2 Min PRN Bernardino Garcia MD Or naloxone (NARCAN) injection 0.4 mg 0.4 mg Intramuscular Q2 Min PRN Bernardino Garcia MD ondansetron (ZOFRAN ODT) ODT tab 4 mg 4 mg Oral Q6H PRN Bernardino Garcia MD Or ondansetron (ZOFRAN) injection 4 mg 4 mg Intravenous Q6H PRN Bernardino Garcia MD oxyCODONE (ROXICODONE) tablet 5 mg 5 mg Oral Q4H PRN Bernardino Garcia MD 5 mg at 10/22/24 0759 senna-docusate (SENOKOT-S/PERICOLACE) 8.6-50 MG per tablet 1 tablet 1 tablet Oral BID PRN Bernardino Garcia MD 1 tablet at 10/15/24 0914 Or senna-docusate (SENOKOT-S/PERICOLACE) 8.6-50 MG per tablet 2 tablet 2 tablet Oral BID PRBernardino Oliveros MD sodium chloride (PF) 0.9% PF flush 3 mL 3 mL Intracatheter q1 min prn Bernardino Garcia MD 3 mL at10/20/24 0330 tiZANidine (ZANAFLEX) tablet 2-4 mg 2-4 mg Oral Q8H PRN Bernardino Garcia MD 2 mg at 10/21/24 1708 Physical Exam: Temp: [98 ??F (36.7 ??C)-98.8 ??F (37.1 ??C)] 98.6 ??F (37 ??C) Pulse: [78-94] 84 Resp: [16-20] 16 BP: (121-144)/(75-85) 137/83 SpO2: [86 %-97 %] 95 % Intake/Output Summary (Last 24 hours) at 10/22/2024 1157 Last data filed at 10/22/2024 0932 Gross per 24 hour Intake 726 ml Output 1180 ml Net -454 ml Constitutional: Awake, alert and in no apparent distress Eyes: nonicteric ENT: oral mucosa moist without lesions Neck: Supple without supraclavicular or cervical lymphadenopathy Lungs: Good air flow. No crackles. No rhonchi. No wheezes. Cardiovascular: Normal S1 and S2. RRR. No murmur, gallop or rub. Abdomen: NABS, soft, nontender, nondistended. No HSM. Musculoskeletal: No edema Neurologic: Alert and conversant. Skin: Warm, dry. No rash on limited exam. Data: All laboratory and imaging data reviewed. CMP Recent Labs Lab 10/22/24 0807 10/22/24 0703 10/22/24 0235 10/21/24 2158 10/21/24 0906 10/21/24 0605 10/20/24 1726 10/20/24 0715 10/19/24 0817 10/19/24 0634 10/18/24 0827 10/18/24 0633 10/17/24 0825 10/17/24 0653 NA -- 130* -- -- -- -- -- -- -- -- -- 139 -- -- POTASSIUM -- 4.3 -- -- -- -- -- -- -- -- -- 3.4 -- -- CHLORIDE -- 92* -- -- -- -- -- -- -- -- -- 99 -- -- CO2 -- 30* -- -- -- -- -- -- -- -- -- 31* -- -- ANIONGAP -- 8 -- -- -- -- -- -- -- -- -- 9 -- -- GLC 86 95 118* 239* < > -- < > -- < > -- < > 117* < > -- BUN -- 14.7 -- -- -- -- -- -- -- -- -- 22.6 -- -- CR -- 0.67 -- -- -- -- -- -- -- 0.78 -- 0.71 -- 0.71 GFRESTIMATED -- >90 -- -- -- -- -- -- -- >90 -- >90 -- >90 LUIS -- 8.1* -- -- -- -- -- -- -- -- -- 8.5* -- -- MAG -- 2.1 -- -- -- 2.2 -- 2.0 -- 2.0 -- 2.1 -- 2.2 PHOS -- 3.2 -- -- -- 3.8 -- 3.6 -- 3.9 -- 4.1 -- 3.5 < > = values in this interval not displayed. CBC Recent Labs Lab 10/22/24 0703 WBC 9.1 RBC 4.14* HGB 12.0* HCT 36.7* MCV 89 MCH 29.0 MCHC 32.7 RDW 12.2 PLT 325 INRNo lab results found in last 7 days. Arterial Blood GasNo lab results found in last 7 days. Urine Studies Recent Labs Lab Test 10/12/24 1350 04/20/21 0941 04/06/21 1222 06/20/19 1255 11/21/16 0745 URINEPH 6.0 6.0 5.5 6.0 8.0* NITRITE Negative Negative Negative Negative Negative LEUKEST Negative Negative Negative Negative Negative WBCU 4 -- <1 -- -- CMV viral loads No lab results found. No results found for: CMQNT, CMVQ EBV viral loads No lab results found. No results found for: EBVDN, EBRES, EBVSP, EBVPC, EBVPCR Respiratory Virus Testing No results found for: RS, FLUAG Sputum Culture last 3 months: Specimen Description Date Value Ref Range Status 07/04/2019 [facility] Final No results found for: CULT Attestation: I personally spent 51 minutes on the date of the encounter doing chart review, history and exam, documentation and further activities per the note. 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 He presented to the ED on 10/12/2024 after a fall. Of note, he had had influenza about 10 days earlier. He felt weak and had had some recurrence of left arm and leg weakness like he had with his astrocytoma. Emergency department evaluation showed hypoxia with need of oxygen at 2 L/min. Laboratory evaluation showed sodium 130, white blood cells 14.4, and negative testing for COVID/influenza/RSV. CT of head showed no acute process. CT of chest with PE protocol showed no PE. It did show right lower lung pneumonia and multiple liver lesions. Trace right pleural effusion was noted. He was started on Rocephin and Zithromax and admitted to the hospital for further cares. Antigen test for pneumococcal pneumonia and Legionella are negative. He was slow to improve. Oxygen needs increased to 5 L/min. Chest x-ray on 10/14 showed increasing right pleural effusion. He was sent for thoracentesis and only 100 mL of fluid was able to be obtained due to loculation. Pulmonary medicine was consulted. Hospital course was complicated by atrial fibrillation with rapidventricular response with heart rate in 140s. He had some relative hypotension with systolic blood pressure of around 95. He was transferred to the ICU for close monitoring and started on amiodarone infusion. Patient spontaneously converted to sinus rhythm at about 10 AM on 10/15/2024. Continues to have some paroxysms of atrial fibrillation. Now on oral amiodarone. Treating with as needed IV metoprolol and have transitioned from carvedilol to oral metoprolol for better rate controlwith good effect. Now primarily back in normal sinus rhythm. Chest tube was placed on 10/16 for loculated effusion and remains in place. Started intra-tube TPA BID on 10/20 to improve drainage Suspect at least a couple days more here for chest tube management, weaning oxygen etc. Today: - continue TPA being administered BID via chest tube to treat loculated pleural effusion; ordered through 10/23 - DOAC on hold for now while receiving TPA with blood in pleural fluid. Given recurrent afib this admit, recommend resumption when TPA administration completed - chest tube output reviewed; 310 ml past 24 hours - repeat CXR today Problem list: Acute hypoxic respiratory failure Suspect postviral syndrome bacterial community-acquired pneumonia and right lower lung Right parapneumonic effusion Acute metabolic encephalopathy, likely related to above with falls -Was initially treated with Rocephin and Zithromax. This was changed to Zosyn on 10/14 -Hypoxia persists but oxygen rate seems to be going down. Continue to wean oxygen as able -Pulmonary consult for suspected right parapneumonic effusion -IR consult placed by pulmonary medicine for chest tube placement for complex right pleural effusion. -- Chest tube placed on 10/16. --cultures negative. Plan for 10 days of Zosyn given slow improvement (stated 10/14), though defer to pulmonology if they feel a longer course is reasonable. - receiving TPA vis chest tube BID 10/20-10/23 to treat loculated effusion - repeat CXR on 10/22 Atrial fibrillation with rapid ventricular response Relative hypotension Previous aortic valve replacement for aortic valve regurgitation -Converted to sinus rhythm 10/15. -Transitioned from amiodarone infusion to oral amiodarone for 1 month on 10/16. 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 Transitioned from carvedilol 12.5 mg twice daily to Toprol-XL 50 mg twice daily with good effect and convresion back to NSR. - Remains in NSR Hyponatremia: Resolved. 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 When he is ill he has recurrence of this weakness. He has had some recurrence of this weakness prior to presentation and during hospital stay. -Obtained MRI brain to ensure no stroke and assess for recurrent astrocytoma. MRI read done with apparent interval development of 1 cm linear focus of restricted diffusion posterior to his known right frontal resection cavity. Unclear if this is ischemia, posttreatment change or recurrence. Recommendation is for ongoing radiographic follow-up. -Continue prior to admission Lamictal Insulin-dependent diabetes: I note that he is chronically on metformin and also has an insulin pump. Hyperglycemia: Improved -Normally manages with insulin pump but has not been eating well or feeling well so this was stopped during hospital stay -Increased Lantus insulin to 30units daily --prandial NovoLog to 2 unit for every 10 g of carbohydrates -Continue high intensity sliding scale Hyperlipidemia -Continue prior to admission ezetimibe Liver lesions -Noted on initial CT of chest -Patient and state that they were aware of these but I cannot find previous abdominal imaging -MRI obtained on 10/14 confirmed lesions raising question of metastatic disease -May need biopsy at some point. I would favor waiting until clinically improved. He follows in the [facility] system and this can likely be done as an outpatient. Diet: Combination Diet Moderate Consistent Carb (60 g CHO per Meal) Diet Fluid restriction 2000 ML FLUID Snacks/Supplements Adult: Other; Stawb glucerna with B, Gelatein+ sanchez with L, strawb glucerna with D; With Meals DVT Prophylaxis: DOAC (placed on hold 10/20 as mentioned above) Cai Catheter: Not present Lines: None Cardiac Monitoring: ACTIVE order. Indication: Tachyarrhythmias, acute (48 hours) Code Status: Full Code Medically Ready for Discharge: Anticipated in 2-4 Days after pleural effusion resolved and chest tube removed Interval History (Subjective): No acute concerns today. Has some intermittent sharp chest pain which is suspected to be related tochest tube and pleural effusion. No SOB Physical Exam: Last Vital Signs: BP 137/83 (BP Location: Right arm, Cuff Size: Adult Regular) Pulse 84 Temp 98.6 ??F (37 ??C) (Oral) Resp 18 Ht 1.753 m (5' 9) Wt 80.5 kg (177 lb 7.5 oz) SpO2 92% BMI 26.21 kg/m?? Intake/Output Summary (Last 24 hours) at 10/22/2024 0917 Last data filed at 10/22/2024 0814 Gross per 24 hour Intake 246 ml Output 1180 ml Net -934 ml Constitutional: Awake, alert, cooperative, no apparent distress Respiratory: Clear to auscultation bilaterally, no crackles or wheezing Cardiovascular: Regular rate and rhythm, normal S1 and S2, and no murmur noted Abdomen: Normal bowel sounds, soft, non-distended, non-tender Skin: No rashes, no cyanosis, dry to touch Neuro: Alert and oriented x3, no weakness, numbness, memory loss Extremities: No edema, normal range of motion Other(s): Chest tube with blood-tinged drainage All other systems: Negative Medications: All current medications were reviewed with changes reflected in problem list. Data: All new lab and imaging data was reviewed. Labs: Lab Results Component Value Date NA 130 10/22/2024 NA 139 10/18/2024 NA 131 10/15/2024 NA 134 10/04/2020 NA 137 07/01/2020 NA 133 09/22/2019 Lab Results Component Value Date CHLORIDE 92 10/22/2024 CHLORIDE 99 10/18/2024 CHLORIDE 95 10/15/2024 CHLORIDE 101 05/05/2022 CHLORIDE 93 03/12/2022 CHLORIDE 94 03/11/2022 CHLORIDE 98 10/04/2020 CHLORIDE 102 07/01/2020 CHLORIDE 97 09/22/2019 Lab Results Component Value Date BUN 14.7 10/22/2024 BUN 22.6 10/18/2024 BUN 27.6 10/15/2024 BUN 18 05/05/2022 BUN 13 03/12/2022 BUN 12 03/11/2022 BUN 20 10/04/2020 BUN 13 07/01/2020 BUN 18 09/22/2019 Lab Results Component Value Date POTASSIUM 4.3 10/22/2024 POTASSIUM 3.4 10/18/2024 POTASSIUM 4.0 10/15/2024 POTASSIUM 4.3 05/05/2022 POTASSIUM 4.4 03/12/2022 POTASSIUM 3.7 03/11/2022 POTASSIUM 4.1 10/04/2020 POTASSIUM 4.2 07/01/2020 POTASSIUM 4.2 09/22/2019 Lab Results Component Value Date CO2 30 10/22/2024 CO2 31 10/18/2024 CO2 23 10/15/2024 CO2 32 05/05/2022 CO2 30 03/12/2022 CO2 27 03/11/2022 CO2 31 10/04/2020 CO2 31 07/01/2020 CO2 32 09/22/2019 Lab Results Component Value Date CR 0.67 10/22/2024 CR 0.78 10/19/2024 CR 0.71 10/18/2024 CR 0.87 10/04/2020 CR 0.85 07/01/2020 CR 0.95 09/22/2019 Recent Labs Lab 10/22/24 0703 WBC 9.1 HGB 12.0* HCT 36.7* MCV 89 PLT 325 Imaging: No results found for this or any previous visit (from the past 24 hours). CTOR VIDEO * Siobhan Valverde RN - 10/21/2024 2:09 PM CST Care Management Follow Up Length of Stay (days): 9 Expected Discharge Date: 10/24/2024 Concerns to be Addressed: discharge planning Patient plan of care discussed at interdisciplinary rounds: Yes Anticipated Discharge Disposition: TBD Anticipated Discharge Services: TBD Anticipated Discharge DME: none Referrals Placed by CM/SW: ARU Discussed ???Partnership in Safe Discharge Planning??? document with patient/family: No Handoff Completed: Yes, [facility] PCP: Internal handoff referral completed Additional Information: CM following for discharge planning needs. Patient is being followed by Physical Therapy/Occupational Therapy for recommendations. They are currently recommending Acute Rehab Unit vs Transitional Care Unit on discharge. CM met with patient last week and patient verified he lives at home with spouseand did not feel he would have any needs on discharge. He is being followed by Pulmonology for planof care recommendations. Per chart review, patient currently still has a chest tube in place. He isnot medically ready for a multiple more days and CT will be removed before discharge. Spoke to Acute Rehab Unit liaison this morning to look at patient to see if he is appropriate for Acute Rehab Unit admission. CM will meet with patient about discharge plan of care after CT is removed and he is closer to medically ready. Acute Rehab Unit feels he looks appropriate but will need to be off IV pain medications/prn meds. Will update Acute Rehab Unit as patient gets closer to discharge. 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 He presented to the ED on 10/12/2024 after a fall. Of note, he had had influenza about 10 days earlier. He felt weak and had had some recurrence of left arm and leg weakness like he had with his astrocytoma. Emergency department evaluation showed hypoxia with need of oxygen at 2 L/min. Laboratory evaluation showed sodium 130, white blood cells 14.4, and negative testing for COVID/influenza/RSV. CT of head showed no acute process. CT of chest with PE protocol showed no PE. It did show right lower lung pneumonia and multiple liver lesions. Trace right pleural effusion was noted. He was started on Rocephin and Zithromax and admitted to the hospital for further cares. Antigen test for pneumococcal pneumonia and Legionella are negative. He was slow to improve. Oxygen needs increased to 5 L/min. Chest x-ray on 10/14 showed increasing right pleural effusion. He was sent for thoracentesis and only 100 mL of fluid was able to be obtained due to loculation. Pulmonary medicine was consulted. Hospital course was complicated by atrial fibrillation with rapidventricular response with heart rate in 140s. He had some relative hypotension with systolic blood pressure of around 95. He was transferred to the ICU for close monitoring and started on amiodarone infusion. Patient spontaneously converted to sinus rhythm at about 10 AM on 10/15/2024. Continues to have some paroxysms of atrial fibrillation. Now on oral amiodarone. Treating with as needed IV metoprolol and have transitioned from carvedilol to oral metoprolol for better rate controlwith good effect. Now primarily back in normal sinus rhythm. Chest tube was placed on 10/16 for loculated effusion and remains in place. Output is waning. Await pulmonology follow-up. Suspect at least a couple days more here for chest tube management, weaning oxygen etc. Today: - TPA being administered BID via chest tube to treat loculated pleural effusion - DOAC on hold for now while receiving TPA with blood in pleural fluid. Given recurrent afib this admit, recommend resumption when TPA administration completed - repeat labs (CBC/BMP) in AM - repeat CXR in AM Problem list: Acute hypoxic respiratory failure Suspect postviral syndrome bacterial community-acquired pneumonia and right lower lung Right parapneumonic effusion Acute metabolic encephalopathy, likely related to above with falls -Was initially treated with Rocephin and Zithromax. This was changed to Zosyn on 10/14 -Hypoxia persists but oxygen rate seems to be going down. Continue to wean oxygen as able -Pulmonary consult for suspected right parapneumonic effusion -IR consult placed by pulmonary medicine for chest tube placement for complex right pleural effusion. -- Chest tube placed on 10/16. --cultures negative. Plan for 10 days of Zosyn given slow improvement, though defer to pulmonology if they feel a longer course is reasonable. - receiving TPA vis chest tube BID 10/20-10/23 to treat loculated effusion Atrial fibrillation with rapid ventricular response Relative hypotension Previous aortic valve replacement for aortic valve regurgitation -Converted to sinus rhythm 10/15. -Transitioned from amiodarone infusion to oral amiodarone for 1 month on 10/16. 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 Transitioned from carvedilol 12.5 mg twice daily to Toprol-XL 50 mg twice daily with good effect and convresion back to NSR. - Remains in NSR Hyponatremia: Resolved. 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 When he is ill he has recurrence of this weakness. He has had some recurrence of this weakness prior to presentation and during hospital stay. -Obtained MRI brain to ensure no stroke and assess for recurrent astrocytoma. MRI read done with apparent interval development of 1 cm linear focus of restricted diffusion posterior to his known right frontal resection cavity. Unclear if this is ischemia, posttreatment change or recurrence. Recommendation is for ongoing radiographic follow-up. -Continue prior to admission Lamictal Insulin-dependent diabetes: I note that he is chronically on metformin and also has an insulin pump. Hyperglycemia: Improved -Normally manages with insulin pump but has not been eating well or feeling well so this was stopped during hospital stay -Increased Lantus insulin to 30units daily --prandial NovoLog to 2 unit for every 10 g of carbohydrates -Continue high intensity sliding scale Hyperlipidemia -Continue prior to admission ezetimibe Liver lesions -Noted on initial CT of chest -Patient and state that they were aware of these but I cannot find previous abdominal imaging -MRI obtained on 10/14 confirmed lesions raising question of metastatic disease -May need biopsy at some point. I would favor waiting until clinically improved. He follows in the [facility] system and this can likely be done as an outpatient. Diet: Combination Diet Moderate Consistent Carb (60 g CHO per Meal) Diet Fluid restriction 2000 ML FLUID Snacks/Supplements Adult: Other; [place] glucerna with B, Gelatein+ sanchez with L, strawb glucerna with D; With Meals DVT Prophylaxis: DOAC (placed on hold 10/20 as mentioned above) Cai Catheter: Not present Lines: None Cardiac Monitoring: ACTIVE order. Indication: Tachyarrhythmias, acute (48 hours) Code Status: Full Code Medically Ready for Discharge: Anticipated in 2-4 Days after pleural effusion resolved and chest tube removed Interval History (Subjective): Chart reviewed. Pt without complaints currently. Nursing did note that pt had chest pain related tochest tube and effusion earlier today. No SOB Physical Exam: Last Vital Signs: BP 139/79 (BP Location: Right arm) Pulse 69 Temp 97.8 ??F (36.6 ??C) (Oral) Resp 16 Ht 1.753 m (5' 9) Wt 80.5 kg (177 lb 7.5 oz) SpO2 99% BMI 26.21 kg/m?? Intake/Output Summary (Last 24 hours) at 10/21/2024 1544 Last data filed at 10/21/2024 1454 Gross per 24 hour Intake 1090 ml Output 2460 ml Net -1370 ml Constitutional: Awake, alert, cooperative, no apparent distress Respiratory: Clear to auscultation bilaterally, no crackles or wheezing Cardiovascular: Regular rate and rhythm, normal S1 and S2, and no murmur noted Abdomen: Normal bowel sounds, soft, non-distended, non-tender Skin: No rashes, no cyanosis, dry to touch Neuro: Alert and oriented x3, no weakness, numbness, memory loss Extremities: No edema, normal range of motion Other(s): All other systems: Negative Medications: All current medications were reviewed with changes reflected in problem list. Data: All new lab and imaging data was reviewed. Labs: Lab Results Component Value Date NA 139 10/18/2024 NA 131 10/15/2024 NA 129 10/14/2024 NA 134 10/04/2020 NA 137 07/01/2020 NA 133 09/22/2019 Lab Results Component Value Date CHLORIDE 99 10/18/2024 CHLORIDE 95 10/15/2024 CHLORIDE 92 10/14/2024 CHLORIDE 101 05/05/2022 CHLORIDE 93 03/12/2022 CHLORIDE 94 03/11/2022 CHLORIDE 98 10/04/2020 CHLORIDE 102 07/01/2020 CHLORIDE 97 09/22/2019 Lab Results Component Value Date BUN 22.6 10/18/2024 BUN 27.6 10/15/2024 BUN 30.8 10/14/2024 BUN 18 05/05/2022 BUN 13 03/12/2022 BUN 12 03/11/2022 BUN 20 10/04/2020 BUN 13 07/01/2020 BUN 18 09/22/2019 Lab Results Component Value Date POTASSIUM 3.4 10/18/2024 POTASSIUM 4.0 10/15/2024 POTASSIUM 4.8 10/14/2024 POTASSIUM 4.3 05/05/2022 POTASSIUM 4.4 03/12/2022 POTASSIUM 3.7 03/11/2022 POTASSIUM 4.1 10/04/2020 POTASSIUM 4.2 07/01/2020 POTASSIUM 4.2 09/22/2019 Lab Results Component Value Date CO2 31 10/18/2024 CO2 23 10/15/2024 CO2 19 10/14/2024 CO2 32 05/05/2022 CO2 30 03/12/2022 CO2 27 03/11/2022 CO2 31 10/04/2020 CO2 31 07/01/2020 CO2 32 09/22/2019 Lab Results Component Value Date CR 0.78 10/19/2024 CR 0.71 10/18/2024 CR 0.71 10/17/2024 CR 0.87 10/04/2020 CR 0.85 07/01/2020 CR 0.95 09/22/2019 Recent Labs Lab 10/15/24 0545 WBC 10.7 HGB 12.9* HCT 37.1* MCV 87 PLT 240 Imaging: No results found for this or any previous visit (from the past 24 hours). CTOR VIDEO * Mona Castellon, RD - 10/21/2024 9:02 AM CST CLINICAL NUTRITION SERVICES - REASSESSMENT NOTE Malnutrition Status: Malnutrition Diagnosis: Patient does not meet two of the established criteria necessary for diagnosing malnutrition but is at risk for malnutrition Malnutrition Present on Admission: No Registered Dietitian Interventions: Recommended liberalization of diet to provider given pt's home regimen and weakness/deconditioning. Reduce nutrition supplements from TID to BID d/t fluid restrictions and improving intake/appetite -pt requested removal of Gel+ but wanted to keep Glucerna. Will change to between meals to increase opportunities for intake - hopeful for this to lead to increase in overall caloric intake throughoutthe day. Discussed nutrition POC with provider Recommended smaller, more frequent intakes throughout the day Appreciate any encouragement with consistent intakes SUBJECTIVE INFORMATION Assessed patient in room. CURRENT NUTRITION ORDERS Diet: Mod CCHO, 2000 mL fluid restriction Supplements: Breakfast: [place] Glucerna Lunch: Gel+ Sanchez Dinner: [place] Glucerna CURRENT INTAKE/TOLERANCE Per nursing flowsheet, 100% intakes and good appetite. Per [facility], 2-3 meals ordered per day. Some meals are well portioned, consisting of things such as beef pot roast, mashed potatoes, and broccoli. However, other meals consist of just orange sherbet and sanchez jello. Seems that they are becoming more consistently well portioned recently, though still room for improvement. Discussed with pt and his in room. Pt stated that his appetite is slightly increasing, but he is mostly eating because he knows that he needs to. Encouraged him to continue with eating consistently and the need for adequate calorie and protein intake. expressed concern over Mod CCHO diet limiting his ability to order food that he wants to eat. Per his , he eats a regular diet at home and carbohydrate counts. Discussed liberalization of diet to allow for increased intake. Pt's also expressed concern regarding blood sugar dropping below 90 overnight. She states thatonce his blood sugar gets below 90, he tends to drop very quickly. This is corroborated by initial pharmacist note for this admission. Deferred to provider for questions regarding insulin regimen. NEW FINDINGS 10/15: [place] [facility]: Chest tube placed Pt still struggling with pain and weakness. Weight: Vitals: 10/12/24 1040 10/15/24 0630 10/16/24 0533 Weight: 87.6 kg (193 lb 2 oz) 81.5 kg (179 lb 11.2 oz) 80.5 kg (177 lb 7.5 oz) Weight fairly stable from last assessment. Unsure of accuracy of 10/12 weight d/t lack of weighing method available. Pt has previously reportedthat UBW is 180-185 lbs. Skin/wounds: Edema: None currently documented Pressure Injury: None currently documented Non-Healing Wound(s): None currently documented GI symptoms: Stooling patterns reviewed - 10/20: BM 10/19: 3 BM 10/18: 2 BM 10/17: 3 BM 10/16: 4 BM Nutrition-relevant labs: Reviewed - Noted: last full panel done on 10/18 Nutrition-relevant medications: Reviewed Noted: sliding scale insulin, 30 units lantus daily, metformin w/ supper, MVI/M ASSESSED NUTRITION NEEDS Dosing Weight: 80.5 kg, based on actual wt Estimated Energy Needs: 25 - 30 kcals/kg Justification: Maintenance Estimated Protein Needs: 1.2 - 1.5 grams of pro/kg Justification: Increased needs Estimated Fluid Needs: Per provider pending fluid status MALNUTRITION % Weight Loss: Weight loss does not meet criteria % Intake: Decreased intake does not meet criteria Subcutaneous Fat Loss: Subcutaneous Fat Loss: Orbital: Mild -> not using with one indicator present Muscle Loss: None observed Fluid Accumulation/Edema: None noted Malnutrition Diagnosis: Patient does not meet two of the established criteria necessary for diagnosing malnutrition but is at risk for malnutrition Malnutrition Present on Admission: No EVALUATION OF THE PROGRESS TOWARD GOALS Previous Goals Patient to consume >/=50% of nutritionally adequate meal trays TID, or the equivalent with supplements/snacks. Evaluation: Met Previous Nutrition Diagnosis Inadequate oral intake related to poor appetite with acute illness as evidenced by family report ofintake. Evaluation: Improving NUTRITION DIAGNOSIS Predicted inadequate oral intake related to appetite below baseline, diet restrictions, and potential for appetite to decrease further pending LOS. INTERVENTIONS See nutrition interventions above Goals Patient to consume 75-100% of nutritionally adequate meal trays TID, or the equivalent with supplements/snacks. Monitoring/Evaluation Progress toward goals will be monitored and evaluated per policy. Bettina Castellon RD, LD Clinical Dietitian [place] Message Group: Dietitian [[place]] Office Pagers: 3rd floor/ICU: [phone] All other floors: [phone] Weekend/holiday: [phone] CTOR VIDEO * Nima Acosta MD - 10/20/2024 3:22 PM CST [facility] Pulmonary, Allergy, Critical Care and Sleep Medicine Follow-up Note October 20, 2024 Assessment and Plan: Alena Rae is a 63 year old male with history of type I diabetes, seizures, 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 He presented to the ED on 10/12/2024 after a fall. He was found to be hypoxemic in the ED and CT of chest with PE protocol showed no PE. It did show right lower lung pneumonia and multiple liver lesions. Trace right pleural effusion was noted. He wasstarted on Rocephin and Zithromax and admitted to the hospital for further cares. Antigen test for pneumococcal pneumonia and Legionella are negative. #Acute hypoxic respiratory failure #Suspect postviral syndrome bacterial community-acquired pneumonia and right lower lung #Parapneumonic effusion based on CT chest on 10/12 s/p chest tube placement on 10/16 -No significant output noted after chest tube placement. Persistence of the right-sided loculated fluid. - Pleural fluid studies suggestive of parapneumonic effusion. - Will proceed with intrapleural tPA/DNase. 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 Will stop the apixaban today. - Continue to monitor output through the chest tube and if bloody, would hold further doses. - Will get repeat imaging after 3 days of intrapleural tPA/DNase. - Continue current antibiotics. - Rest of the plan as per the primary team. Pulmonary will continue to follow. RHETT Grady [employer] Chargerfire ranger [facility] Pulmonary, Allergy, Critical Care and Sleep Medicine Pager - [phone] Interval History: - Minimal drainage through the chest tube. Output of only 6 mL noted in the chart. - CXR done yesterday showed persistent right-sided loculated pleural fluid. - Currently on 2 LPM supplemental oxygen. Patient still has cough and chest pain on the right side. Review of Systems: C: negative for fever, chills, change in weight INTEGUMENTARY/SKIN: no rash or obvious new lesions ENT/MOUTH: no sore throat, new sinus pain or nasal drainage RESP: see interval history CV: negative for chest pain, palpitations or peripheral edema GI: no nausea, vomiting, change in stools MUSCULOSKELETAL: no myalgias, arthralgias Medications: Current Facility-Administered Medications Medication Dose Route Frequency Provider Last Rate Last Admin alteplase (ACTIVASE) 10 mg, dornase talia (PULMOZYME) 5 mg in sodium chloride 0.9 % 50 mL for chest tube instillation in syringe 50 mL Chest Tube BID Nima Acosta MD amiodarone (PACERONE) tablet 200 mg 200 mg Oral BID Chris Suarez MD 200 mg at 10/20/24 0622 diclofenac (VOLTAREN) 1 % topical gel 2 g 2 g Topical 4x Daily Bernardino Garcia MD 2 g at 10/20/24 1012 ezetimibe (ZETIA) tablet 10 mg 10 mg Oral QPM Bernardino Garcia MD 10 mg at 10/19/24 2055 guaiFENesin (MUCINEX) 12 hr tablet 600 mg 600 mg Oral BID Bernardino Garcia MD 600 mg at 10/20/24 0756 insulin aspart (NovoLOG) injection (RAPID ACTING) 1-10 Units Subcutaneous TID AC Chris Suarez MD 5 Units at 10/19/24 1811 insulin aspart (NovoLOG) injection (RAPID ACTING) 1-7 Units Subcutaneous At Bedtime Chris Suarez MD 3 Units at 10/17/24 2242 insulin aspart (NovoLOG) injection (RAPID ACTING) Subcutaneous TID w/meals Chris Suarez MD 8 Units at 10/20/24 1001 insulin glargine (LANTUS PEN) injection 30 Units 30 Units Subcutaneous At Bedtime Chris Suarez MD 30 Units at 10/19/24 2118 lamoTRIgine (LaMICtal) tablet 300 mg 300 mg Oral BID Bernardino Garcia MD 300 mg at 10/20/24 0756 Lidocaine (LIDOCARE) 4 % Patch 1 patch 1 patch Transdermal Q24H Bernardino Garcia MD 1 patch at 10/19/24 0849 lisinopril (ZESTRIL) tablet 30 mg 30 mg Oral Daily Bernardino Garcia MD 30 mg at 10/20/24 0755 metFORMIN (GLUCOPHAGE) tablet 500 mg 500 mg Oral Daily with supper Bernardino Garcia MD 500 mg at 10/19/24 1811 metoprolol succinate ER (TOPROL XL) 24 hr tablet 50 mg 50 mg Oral BID Chris Suarez MD 50 mg at 10/20/24 1003 miconazole (MICATIN) 2 % powder Topical BID Chris Suarez MD Given at 10/20/24 1011 multivitamin w/minerals (THERA-VIT-M) tablet 1 tablet 1 tablet Oral Daily Bernardino Garcia MD 1 tablet at 10/20/24 1003 piperacillin-tazobactam (ZOSYN) 3.375 g vial to attach to NS 100 mL bag 3.375 g Intravenous Q6H Chris Suarez MD 200 mL/hr at 10/16/24 1927 3.375 g at 10/20/24 1008 psyllium (METAMUCIL/KONSYL) capsule 5 capsule 5 capsule Oral Daily Bernardino Garcia MD 5 capsule at 10/20/24 1007 sodium chloride (PF) 0.9% PF flush 3 mL 3 mL Intracatheter Q8H Bernardino Garcia MD 3 mL at 10/20/24 1011 Current Facility-Administered Medications Medication Dose Route Frequency Provider Last Rate Last Admin acetaminophen (TYLENOL) tablet 650 mg 650 mg Oral Q4H PRN Bernardino Garcia MD 650 mg at 10/18/24 2138 Or acetaminophen (TYLENOL) Suppository 650 mg 650 mg Rectal Q4H PRN Bernardino Garcia MD benzonatate (TESSALON) capsule 100 mg 100 mg Oral TID PRN Bernardino Garcia MD 100 mg at 10/15/24 0929 bisacodyl (DULCOLAX) suppository 10 mg 10 mg Rectal Daily PRN Bernardino Garcia MD 10 mg at 10/15/24 1158 calcium carbonate (TUMS) chewable tablet 1,000 mg 1,000 mg Oral 4x Daily PRN Bernardino Garcia MD carboxymethylcellulose PF (REFRESH PLUS) 0.5 % ophthalmic solution 1 drop 1 drop Both Eyes Q1H PRN Bernardino Garcia MD glucose gel 15-30 g 15-30 g Oral Q15 Min PRN Bernardino Garcia MD Or dextrose 50 % injection 25-50 mL 25-50 mL Intravenous Q15 Min PRN Bernardino Garcia MD Or glucagon injection 1 mg 1 mg Subcutaneous Q15 Min PRN Bernardino Garcia MD HYDROmorphone (DILAUDID) injection 0.2 mg 0.2 mg Intravenous Q4H PRN Bernardino Garcia MD 0.2 mg at 10/20/24 1129 hydrOXYzine HCl (ATARAX) tablet 25 mg 25 mg Oral Q6H PRN Bernardino Garcia MD 25 mg at 10/14/24 1141 lidocaine (LMX4) cream Topical Q1H PRN Bernardino Garcia MD lidocaine 1 % 0.1-1 mL 0.1-1 mL Other Q1H PRN Bernardino Garcia MD lidocaine 1 % 1-30 mL 1-30 mL Intradermal Once PRN Joanna León APRN CNP metoprolol (LOPRESSOR) injection 5 mg 5 mg Intravenous Q4H PRN Chris Suarez MD naloxone (NARCAN) injection 0.2 mg 0.2 mg Intravenous Q2 Min PRN Bernardino Garcia MD Or naloxone (NARCAN) injection 0.4 mg 0.4 mg Intravenous Q2 Min PRN Bernardino Garcia MD Or naloxone (NARCAN) injection 0.2 mg 0.2 mg Intramuscular Q2 Min PRN Bernardino Garcia MD Or naloxone (NARCAN) injection 0.4 mg 0.4 mg Intramuscular Q2 Min PRN Bernardino Garcia MD ondansetron (ZOFRAN ODT) ODT tab 4 mg 4 mg Oral Q6H PRN Bernardino Garcia MD Or ondansetron (ZOFRAN) injection 4 mg 4 mg Intravenous Q6H PRN Bernardino Garcia MD oxyCODONE (ROXICODONE) tablet 5 mg 5 mg Oral Q4H PRN Bernardino Garcia MD 5 mg at 10/20/24 1008 senna-docusate (SENOKOT-S/PERICOLACE) 8.6-50 MG per tablet 1 tablet 1 tablet Oral BID PRN Bernardino Garcia MD 1 tablet at 10/15/24 0914 Or senna-docusate (SENOKOT-S/PERICOLACE) 8.6-50 MG per tablet 2 tablet 2 tablet Oral BID PRN Bernardino Garcia MD sodium chloride (PF) 0.9% PF flush 3 mL 3 mL Intracatheter q1 min prn Bernardino Garcia MD 3 mL at10/20/24 0330 tiZANidine (ZANAFLEX) tablet 2-4 mg 2-4 mg Oral Q8H PRN Bernardino Garcia MD 2 mg at 10/14/24 1700 Physical Exam: Temp: [98.3 ??F (36.8 ??C)-98.5 ??F (36.9 ??C)] 98.5 ??F (36.9 ??C) Pulse: [70-92] 70 Resp: [16-18] 18 BP: (125-139)/(77-81) 136/77 SpO2: [87 %-94 %] 87 % Intake/Output Summary (Last 24 hours) at 10/20/2024 1522 Last data filed at 10/20/2024 0815 Gross per 24 hour Intake 1498 ml Output 781 ml Net 717 ml Constitutional: Awake, alert and in no apparent distress Eyes: nonicteric ENT: oral mucosa moist without lesions Neck: Supple without supraclavicular or cervical lymphadenopathy Lungs: Good air flow. No crackles. No rhonchi. No wheezes. Cardiovascular: Normal S1 and S2. RRR. No murmur, gallop or rub. Abdomen: NABS, soft, nontender, nondistended. No HSM. Musculoskeletal: No edema Neurologic: Alert and conversant. Skin: Warm, dry. No rash on limited exam. Data: All laboratory and imaging data reviewed. CMP Recent Labs Lab 10/20/24 0715 10/20/24 0600 10/20/24 0511 10/20/24 0203 10/20/24 0030 10/19/24 0817 10/19/24 0634 10/18/24 0827 10/18/24 0633 10/17/24 1243 10/17/24 0653 10/16/24 0814 10/16/24 0744 10/15/24 0640 10/15/24 0545 10/14/24 1138 10/14/24 1024 10/14/24 0816 10/14/24 0606 10/13/24 2047 10/13/24 1955 NA -- -- -- -- -- -- -- -- 139 -- -- -- -- -- 131* -- -- -- 129* -- 126* POTASSIUM -- -- -- -- -- -- -- -- 3.4 -- -- -- -- -- 4.0 -- -- -- 4.8 -- -- CHLORIDE -- -- -- -- -- -- -- -- 99 -- -- -- -- -- 95* -- -- -- 92* -- -- CO2 -- -- -- -- -- -- -- -- 31* -- -- -- -- -- 23 -- -- -- 19* -- -- ANIONGAP -- -- -- -- -- -- -- -- 9 -- -- -- -- -- 13 -- -- -- 18* -- -- GLC -- 139* 83 124* 105* < > -- < > 117* < > -- < > -- < > 260* < > -- < > 283* < > -- BUN -- -- -- -- -- -- -- -- 22.6 -- -- -- -- -- 27.6* -- -- -- 30.8* -- -- CR -- -- -- -- -- -- 0.78 -- 0.71 -- 0.71 -- 0.68 -- 0.89 -- -- -- 0.93 < > -- GFRESTIMATED -- -- -- -- -- -- >90 -- >90 -- >90 -- >90 -- >90 -- -- -- >90 < & gt; -- LUIS -- -- -- -- -- -- -- -- 8.5* -- -- -- -- -- 8.6* -- -- -- 9.0 -- -- MAG 2.0 -- -- -- -- -- 2.0 -- 2.1 -- 2.2 -- 2.2 -- 2.2 -- -- -- 2.4* < > -- PHOS 3.6 -- -- -- -- -- 3.9 -- 4.1 -- 3.5 -- 3.3 -- 3.3 -- -- -- 3.6 < > -- PROTTOTAL -- -- -- -- -- -- -- -- -- -- -- -- -- -- -- -- 5.8* 5.8* -- -- -- -- ALBUMIN -- -- -- -- -- -- -- -- -- -- -- -- -- -- -- -- 2.9* -- -- -- -- BILITOTAL -- -- -- -- -- -- -- -- -- -- -- -- -- -- -- -- 0.4 -- -- -- -- ALKPHOS -- -- -- -- -- -- -- -- -- -- -- -- -- -- -- -- 108 -- -- -- -- AST -- -- -- -- -- -- -- -- -- -- -- -- -- -- -- -- 17 -- -- -- -- ALT -- -- -- -- -- -- -- -- -- -- -- -- -- -- -- -- 20 -- -- -- -- < > = values in this interval not displayed. CBC Recent Labs Lab 10/15/24 0545 10/14/24 0606 WBC 10.7 13.5* RBC 4.26* 4.42 HGB 12.9* 13.4 HCT 37.1* 38.2* MCV 87 86 MCH 30.3 30.3 MCHC 34.8 35.1 RDW 12.1 11.8 PLT 240 196 INRNo lab results found in last 7 days. Arterial Blood GasNo lab results found in last 7 days. Urine Studies Recent Labs Lab Test 10/12/24 1350 04/20/21 0941 04/06/21 1222 06/20/19 1255 11/21/16 0745 URINEPH 6.0 6.0 5.5 6.0 8.0* NITRITE Negative Negative Negative Negative Negative LEUKEST Negative Negative Negative Negative Negative WBCU 4 -- <1 -- -- CMV viral loads No lab results found. No results found for: CMQNT, CMVQ EBV viral loads No lab results found. No results found for: EBVDN, EBRES, EBVSP, EBVPC, EBVPCR Respiratory Virus Testing No results found for: RS, FLUAG Sputum Culture last 3 months: Specimen Description Date Value Ref Range Status 07/04/2019 Laurent Final No results found for: CULT Attestation: I personally spent 51 minutes on the date of the encounter doing chart review, history and exam, documentation and further activities per the note. RHETT Grady [employer]ger[employer] ranger [facility] Pulmonary, Allergy, Critical Care and Sleep Medicine Pager - [phone] CTOR VIDEO * Zaki Menchaca, OT - 10/20/2024 2:49 PM CST 10/20/24 1420 Appointment Info Signing Clinician's Name / Credentials (OT) aZki Menchaca EdD, OTR/L Rehab Comments (OT) Initial evaluation and treatment Living Environment People in Home spouse Current Living Arrangements house (2 story with basement) Home Accessibility no concerns;stairs to enter home;stairs within home Number of Stairs, Main Entrance 2 Number of Stairs, Within Home, Primary greater than 10 stairs Stair Railings, Within Home, Primary railings safe and in good condition Transportation Anticipated family or friend will provide Living Environment Comments 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 Sleeps at least part of the day. 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 Self-Care Usual Activity Tolerance good Current Activity Tolerance fair Equipment Currently Used at Home none Fall history within last six months yes Number of times patient has fallen within last six months 1 Activity/Exercise/Self-Care Comment Independent with basic ADLS and mobility at baseline General Information Onset of Illness/Injury or Date of Surgery 10/18/24 Referring Physician Joce Suarez Patient/Family Therapy Goal Statement (OT) pt wanting to return home and to work. 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 He presented to the ED on 10/12/2024 after a fall. Of note, he had had influenza about 10 days earlier. He felt weak and had had some recurrence of left arm and leg weakness like he had with his astrocytoma. 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 Does not do taxes. Existing Precautions/Restrictions fall;other (see comments) (chest tube present) Limitations/Impairments other (see comments) (pt also presents some left sided weakness from previous remote brain surgery.) Cognitive Status Examination Orientation Status orientation to person, place and time Visual Perception Visual Impairment/Limitations corrective lenses full-time Pain Assessment Patient Currently in Pain Yes, see Vital Sign flowsheet (pt complaining of back pain close to his chest tub incision. Stated he got it yesterday while transferring back to bed. Pt reports nursing knows about it.) Range of Motion Comprehensive General Range of Motion no range of motion deficits identified Strength Comprehensive (MMT) General Manual Muscle Testing (MMT) Assessment upper extremity strength deficits identified Comment, General Manual Muscle Testing (MMT) Assessment mild left sided weakness Coordination Upper Extremity Coordination Left UE impaired Coordination Comments pt has some shakiness and slowness of movement on left side. States he can sill use the computer but the left side has gotten worse lately Bed Mobility Bed Mobility supine-sit Supine-Sit [place] (Bed Mobility) verbal cues;contact guard;moderate assist (50% patient effort) Assistive Device (Bed Mobility) bed rails Balance Balance Assessment sitting static balance Sitting Balance: Static modified independence (pt needing to do some leaning on his left arm while stitting EOB to keep his best balance) Clinical Impression Criteria for Skilled Therapeutic Interventions Met (OT) Yes, treatment indicated OT Diagnosis decreased independence in ADLS and IADLS OT Problem List-Impairments impacting ADL problems related to;activity tolerance impaired;balance;coordination;strength Assessment of Occupational Performance 3-5 Performance Deficits Identified Performance Deficits decresaed independence in dressing, bathing, functional mobility, household and work chores Planned Therapy Interventions (OT) ADL retraining;strengthening;transfer training;progressive activity/exercise;fine motor coordination training Clinical Decision Making Complexity (OT) problem focused assessment/low complexity Risk & Benefits of therapy have been explained evaluation/treatment results reviewed;care plan/treatment goals reviewed;patient OT Total Evaluation Time OT Eval, Low Complexity Minutes (55671) 15 OT Goals Therapy Frequency (OT) Daily OT Predicted Duration/Target Date for Goal Attainment 10/27/24 OT Goals Hygiene/Grooming;Upper Body Dressing;Lower Body Dressing;Toilet Transfer/Toileting;OT Goal1;OT Goal 2 OT: Hygiene/Grooming modified independent;using adaptive equipment;within precautions;while standing OT: Upper Body Dressing Modified independent;using adaptive equipment;within precautions;including set-up/clothing retrieval OT: Lower Body Dressing Modified independent;using adaptive equipment;within precautions;including set-up/clothing retrieval OT: Toilet Transfer/Toileting Modified independent;toilet transfer;cleaning and garment management;using adaptive equipment OT: Goal 1 Pt will tolerate 10+ minutes B UE exercise to gain endurance and independence for ADLS OT: Goal 2 Pt will tolerate 10+ minutes fine motor activities to assist coordination for work realated activities. Interventions Interventions Quick Adds Self-Care/Home Management;Therapeutic Activity Therapeutic Activities Therapeutic Activity Minutes (64840) 25 Symptoms noted during/after treatment fatigue;increased pain Treatment Detail/Skilled Intervention OT: Treatment started for bed mobility and ADLS. Pt willing to participate, limited to some degree by back pain which he says is close to the chest tube. Mod A to come up to EOB. Needed some extra cueing and sliding his left leg wider to give a better base of support. Was able to acheive a figure 4 position on both sides to indicate ability to try LE dressing. Some tremors noted in left hand, pt states it has gotten worse lately. 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 At this time pt is looking to goon short term disability. Declined standing secondary to his back pain. Was able to use a modified log roll technique to get back into bed. Mod A and verbal cues to help position pt and give his someextra pillows in the back to help support side lying. OT Discharge Planning OT Plan LE dressing, bathroom transfers including grooming at sink. Try 9 hole peg test to look at coordination issues. OT Discharge Recommendation (DC Rec) Acute Rehab Center-Motivated patient will benefit from intensive, interdisciplinary therapy. Anticipate will be able to tolerate 3 hours of therapy per day OT Rationale for DC Rec Pt is significantly below his baseline to manage daily ADLS and mobility athome. Pt needs to climb a full flight of stairs to get o his bedroom, maing bathroom, and office. Pt is very motivated to return to these activities and understands the demands of therapy at ARU. Will be a good candidate to improve in ARU to return to work and his contributions to manage the house.. OT Brief overview of current status Goals of therapy will be to address safe mobility and ADLS and make recommendations for discharge to the next level of care. Pt and RN will continue to follow all fall risk precautions as documented by staff certified nurse midwife while hospitalized. 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 He presented to the ED on 10/12/2024 after a fall. Of note, he had had influenza about 10 days earlier. He felt weak and had had some recurrence of left arm and leg weakness like he had with his astrocytoma. Emergency department evaluation showed hypoxia with need of oxygen at 2 L/min. Laboratory evaluation showed sodium 130, white blood cells 14.4, and negative testing for COVID/influenza/RSV. CT of head showed no acute process. CT of chest with PE protocol showed no PE. It did show right lower lung pneumonia and multiple liver lesions. Trace right pleural effusion was noted. He was started on Rocephin and Zithromax and admitted to the hospital for further cares. Antigen test for pneumococcal pneumonia and Legionella are negative. He was slow to improve. Oxygen needs increased to 5 L/min. Chest x-ray on 10/14 showed increasing right pleural effusion. He was sent for thoracentesis and only 100 mL of fluid was able to be obtained due to loculation. Pulmonary medicine was consulted. Hospital course was complicated by atrial fibrillation with rapidventricular response with heart rate in 140s. He had some relative hypotension with systolic blood pressure of around 95. He was transferred to the ICU for close monitoring and started on amiodarone infusion. Patient spontaneously converted to sinus rhythm at about 10 AM on 10/15/2024. Continues to have some paroxysms of atrial fibrillation. Now on oral amiodarone. Treating with as needed IV metoprolol and have transitioned from carvedilol to oral metoprolol for better rate controlwith good effect. Now primarily back in normal sinus rhythm. Chest tube was placed on 10/16 for loculated effusion and remains in place. Output is waning. Await pulmonology follow-up. Suspect at least a couple days more here for chest tube management, weaning oxygen etc. Today: Weaned to 2 LPM Filled out FMLA paperwork and disability paperwork Chest tube remains in place, output weaning. Small bloody output. Is still on Eliquis. Will await pulmonology follow-up today Repeat chest x-ray 10/19 overall shows improvement with some atelectasis and ongoing right-sided pleural fluid. Problem list: Acute hypoxic respiratory failure Suspect postviral syndrome bacterial community-acquired pneumonia and right lower lung Likely right parapneumonic effusion Acute metabolic encephalopathy, likely related to above with falls -Was initially treated with Rocephin and Zithromax. This was changed to Zosyn on 10/14 -Hypoxia persists but oxygen rate seems to be going down. Continue to wean oxygen as able -Pulmonary consult for suspected right parapneumonic effusion -IR consult placed by pulmonary medicine for chest tube placement for complex right pleural effusion. -- Chest tube placed on 10/16. --cultures negative. Plan for 10 days of Zosyn given slow improvement, though defer to pulmonology if they feel a longer course is reasonable. Atrial fibrillation with rapid ventricular response Relative hypotension Previous aortic valve replacement for aortic valve regurgitation -Converted to sinus rhythm 10/15. -Transitioned from amiodarone infusion to oral amiodarone for 1 month on 10/16. -Continue prior to admission Eliquis monitor chest tube output. Did develop a small amount of bright red blood output on 10/20. -Intermittently back in A-fib with borderline rate control starting on 10/17. Transitioned from carvedilol 12.5 mg twice daily to Toprol-XL 50 mg twice daily with good effect. Back in NSR Hyponatremia: Resolved. 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 When he is ill he has recurrence of this weakness. He has had some recurrence of this weakness prior to presentation and during hospital stay. -Obtained MRI brain to ensure no stroke and assess for recurrent astrocytoma. MRI read done with apparent interval development of 1 cm linear focus of restricted diffusion posterior to his known right frontal resection cavity. Unclear if this is ischemia, posttreatment change or recurrence. Recommendation is for ongoing radiographic follow-up. -Continue prior to admission Lamictal Insulin-dependent diabetes: I note that he is chronically on metformin and also has an insulin pump. Hyperglycemia: Improved -Normally manages with insulin pump but has not been eating well or feeling well so this was stopped during hospital stay -Increased Lantus insulin to 30units daily --prandial NovoLog to 2 unit for every 10 g of carbohydrates -Continue high intensity sliding scale Hyperlipidemia -Continue prior to admission ezetimibe Liver lesions -Noted on initial CT of chest -Patient and state that they were aware of these but I cannot find previous abdominal imaging -MRI obtained on 10/14 confirmed lesions raising question of metastatic disease -May need biopsy at some point. I would favor waiting until clinically improved. He follows in the [facility] system and this can likely be done as an outpatient. Diet: Combination Diet Moderate Consistent Carb (60 g CHO per Meal) Diet Fluid restriction 2000 ML FLUID Snacks/Supplements Adult: Other; Stawb glucerna with B, Gelatein+ sanchez with L, strawb glucerna with D; With Meals DVT Prophylaxis: DOAC Cai Catheter: Not present Lines: None Cardiac Monitoring: ACTIVE order. Indication: Tachyarrhythmias, acute (48 hours) Code Status: Full Code Clinically Significant Risk Factors # Hypoalbuminemia: Lowest albumin = 2.9 g/dL at 10/14/2024 10:24 AM, will monitor as appropriate # Hypertension: Noted on problem list # Overweight: Estimated body mass index is 26.21 kg/m?? as calculated from the following: Height as of this encounter: 1.753 m (5' 9). Weight as of this encounter: 80.5 kg (177 lb 7.5 oz). Social Drivers of Health Physical Activity: Insufficiently Active (07/12/2023) Exercise Vital Sign Days of Exercise per Week: 3 days Minutes of Exercise per Session: 30 min Stress: Patient Declined (07/12/2023) [place] [employer] - Occupational Stress Questionnaire Feeling of Stress : Patient declined Disposition Plan Medically Ready for Discharge: Anticipated in 2-4 Days Might need tcu but seems to be progressing a bit with therapies Chris Suarez MD Hospitalist Service [facility] Securely message with [employer] (more info) Text page via [employer] Paging/Directory Interval History Chest tube in place, output waning but slightly more bloody today. Chest x-ray yesterday showed improvement but not resolution As atelectasis, need to encourage incentive spirometry Currently on 2 L/min Remains in normal sinus rhythm FMLA and disability paperwork completed updated at the bedside Physical Exam Vital Signs: Temp: 98.5 ??F (36.9 ??C) Temp src: Oral BP: 136/77 Pulse: 70 Resp: 18 SpO2: (!) 87 % O2 Device: Nasal cannula Oxygen Delivery: 2 LPM Weight: 177 lbs 7.52 oz GENERAL: Comfortable. Cooperative. Evidence of prior cranial surgery. PSYCH: pleasant, oriented, No acute distress. EYES: PERRLA, Normal conjunctiva. HEART: Regular rate and rhythm. LUNGS: Clear to auscultation, normal Respiratory effort. Diminished. Right-sided chest tube with small bloody output. ABDOMEN: Soft, no hepatosplenomegaly, normal bowel sounds. EXTREMETIES: No clubbing, cyanosis or ischemia SKIN: Dry to touch, No rash. Medical Decision Making 60 MINUTES SPENT BY ME on the date of service doing chart review, history, exam, documentation & further activities per the note. Data Imaging results reviewed over the past 24 hrs: Recent Results (from the past 24 hours) XR Chest Port 1 View Narrative EXAM: XR CHEST PORTABLE 1 VIEW LOCATION: [facility] DATE: 10/19/2024 INDICATION: Chest tube, follow-up effusion. COMPARISON: CT 10/15/2024, 10/17/2024. Impression IMPRESSION: Small bore right-sided thoracostomy tube in good position. Right- sided pleural fluid, decreased since prior with loculated pleural fluid along the lateral aspect of the right hemithorax and within the fissure. No definitive evidence for pneumothorax. Atelectasis both right and left lung bases. Normal heart size and pulmonary vascularity. Minimal pleural fluid left lung base. Recent Labs Lab 10/20/24 0600 10/20/24 0511 10/20/24 0203 10/19/24 0817 10/19/24 0634 10/18/24 0827 10/18/24 0633 10/17/24 1243 10/17/24 0653 10/15/24 0640 10/15/24 0545 10/14/24 1138 10/14/24 1024 10/14/24 0816 10/14/24 0606 WBC -- -- -- -- -- -- -- -- -- -- 10.7 -- -- -- 13.5* HGB -- -- -- -- -- -- -- -- -- -- 12.9* -- -- -- 13.4 MCV -- -- -- -- -- -- -- -- -- -- 87 -- -- -- 86 PLT -- -- -- -- -- -- -- -- -- -- 240 -- -- -- 196 NA -- -- -- -- -- -- 139 -- -- -- 131* -- -- -- 129* POTASSIUM -- -- -- -- -- -- 3.4 -- -- -- 4.0 -- -- -- 4.8 CHLORIDE -- -- -- -- -- -- 99 -- -- -- 95* -- -- -- 92* CO2 -- -- -- -- -- -- 31* -- -- -- 23 -- -- -- 19* BUN -- -- -- -- -- -- 22.6 -- -- -- 27.6* -- -- -- 30.8* CR -- -- -- -- 0.78 -- 0.71 -- 0.71 < > 0.89 -- -- -- 0.93 ANIONGAP -- -- -- -- -- -- 9 -- -- -- 13 -- -- -- 18* LUIS -- -- -- -- -- -- 8.5* -- -- -- 8.6* -- -- -- 9.0 GLC 139* 83 124* < > -- < > 117* < > -- < > 260* < > -- < > 283* ALBUMIN -- -- -- -- -- -- -- -- -- -- -- -- 2.9* -- -- PROTTOTAL -- -- -- -- -- -- -- -- -- -- -- -- 5.8* 5.8* -- -- BILITOTAL -- -- -- -- -- -- -- -- -- -- -- -- 0.4 -- -- ALKPHOS -- -- -- -- -- -- -- -- -- -- -- -- 108 -- -- ALT -- -- -- -- -- -- -- -- -- -- -- -- 20 -- -- AST -- -- -- -- -- -- -- -- -- -- -- -- 17 -- -- < > = values in this interval not displayed. Patt Redding PT - 10/19/2024 10:56 AM CST 10/19/24 1030 Appointment Info Signing Clinician's Name / Credentials (PT) Patt Ghosh DPT Rehab Comments (PT) chest tube, 4LO2 at eval Living Environment People in Home spouse Current Living Arrangements house Home Accessibility stairs within home Number of Stairs, Within Home, Primary greater than 10 stairs Stair Railings, Within Home, Primary railings safe and in good condition Transportation Anticipated family or friend will provide Self-Care Usual Activity Tolerance good Current Activity Tolerance fair Equipment Currently Used at Home none Fall history within last six months yes Number of times patient has fallen within last six months 1 Activity/Exercise/Self-Care Comment IND with mobility at baseline General Information Onset of Illness/Injury or Date of Surgery 10/12/24 Referring Physician Chris Suarez MD Patient/Family Therapy Goals Statement (PT) progress mobility Pertinent History of Current Problem (include personal factors and/or comorbidities that impact thePOC) Alena Rae is a 63 year old male with history of type I diabetes, seizures, 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 He presented to the ED on 10/12/2024 after a fall. Of note, he had had influenza about 10 days earlier. He felt weak and had had some recurrence of left arm and leg weakness likehe had with his astrocytoma. Existing Precautions/Restrictions fall Cognition Affect/Mental Status (Cognition) WFL Orientation Status (Cognition) oriented x 4 Follows Commands (Cognition) WFL Pain Assessment Patient Currently in Pain (only when coughing, 4/10) Integumentary/Edema Integumentary/Edema Comments chest tube present Posture Posture Forward head position;Protracted shoulders Range of Motion (ROM) Range of Motion ROM is WFL Strength (Manual Muscle Testing) Strength (Manual Muscle Testing) Deficits observed during functional mobility (LUE and LLE weakness) Bed Mobility Comment, (Bed Mobility) not assessed at eval Transfers Comment, (Transfers) ModA sit<>stand with FWW Gait/Stairs (Locomotion) Comment, (Gait/Stairs) pregait with Art and FWW, unable to ambulate Balance Balance Comments good sitting balance, unsteady in standing requiring Art to assist, frequent LOB,requiring walker for stability Sensory Examination Sensory Perception patient reports no sensory changes Clinical Impression Criteria for Skilled Therapeutic Intervention Yes, treatment indicated PT Diagnosis (PT) impaired mobility Influenced by the following impairments decreased activity tolerance, weakness, pain, impaired balance Functional limitations due to impairments impaired bed mobility, transfers, ambulation, stairs Clinical Presentation (PT Evaluation Complexity) evolving Clinical Presentation Rationale clinical judgement, chart review Clinical Decision Making (Complexity) low complexity Planned Therapy Interventions (PT) balance training;bed mobility training;gait training;home exercise program;neuromuscular re-education;patient/family education;stair training;strengthening;transfertraining;home program guidelines;risk factor education;progressive activity/exercise Risk & Benefits of therapy have been explained evaluation/treatment results reviewed;care plan/treatment goals reviewed;risks/benefits reviewed;current/potential barriers reviewed;participants voiced agreement with care plan;participants included;patient PT Total Evaluation Time PT Eval, Low Complexity Minutes (13840) 8 Physical Therapy Goals PT Frequency Daily PT Predicted Duration/Target Date for Goal Attainment 10/26/24 PT Goals Bed Mobility;Transfers;Gait;Stairs PT: Bed Mobility Independent;Supine to/from sit PT: Transfers Supervision/stand-by assist;Sit to/from stand;Assistive device PT: Gait Supervision/stand-by assist;Rolling walker;150 feet PT: Stairs Supervision/stand-by assist;Greater than 10 stairs;Rail on right Interventions Interventions Quick Adds Therapeutic Activity;Therapeutic Procedure Therapeutic Procedure/Exercise Ther. Procedure: strength, endurance, ROM, flexibillity Minutes (86976) 12 Symptoms Noted During/After Treatment fatigue Treatment Detail/Skilled Intervention Pt guided through UE and LE exercises for strengthening including LAQs, seated marches, heel slides, SLRs, fist squeezes, shoulder flexion, and elbow flexion, x10 each to address strength deficits. Cues for slow and controlled movement, form for optimal muscle activation. Encouraged to complete independently for strength benefits. Therapeutic Activity Therapeutic Activities: dynamic activities to improve functional performance Minutes ([id number]) 20 Symptoms Noted During/After Treatment Fatigue Treatment Detail/Skilled Intervention Pt sitting in chair with mother present, agreeable to session. On 4LO2. chest tube remained on suction through session. Time spent for line management. Noted L sided weakness through session, nurse and MD aware. After eval, completed x5 sit<>stands with FWW and ModA progressing to Art, safety cues for hand placement with transfer. Cues for standing marches each rep, slow to complete, Art with walker d/t multiple LOB, cues for foot placement, weight shifting, weight distribution through foot to improve balance. Seated rest between bouts. Discussed rec of ARU/TCU at discharge, pt in agreement. Left in recliner, needs in reach, SW updated. PT Discharge Planning PT Plan assess bed mobility, progress transfers, pregait and initiate ambulation as able PT Discharge Recommendation (DC Rec) Acute Rehab Center-Motivated patient will benefit from intensive, interdisciplinary therapy. Anticipate will be able to tolerate 3 hours of therapy per day;Transitional Care Facility PT Rationale for DC Rec Pt is well below baseline level of mobility, currently requiring Ax1-2 withwalker for transfers, unable to ambulate this date. Pt is on 4LO2 currently, on RA at baseline. Pt lives in a home with his , stairs required to reach bedroom. Pt is unable to ambulate household distances. Pt is motivated and has strong family support. Pt would benefit from ARU to progress independence with mobility, strength, balance and functional mobility. If unable to go to ARU, would require TCU. 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 He presented to the ED on 10/12/2024 after a fall. Of note, he had had influenza about 10 days earlier. He felt weak and had had some recurrence of left arm and leg weakness like he had with his astrocytoma. Emergency department evaluation showed hypoxia with need of oxygen at 2 L/min. Laboratory evaluation showed sodium 130, white blood cells 14.4, and negative testing for COVID/influenza/RSV. CT of head showed no acute process. CT of chest with PE protocol showed no PE. It did show right lower lung pneumonia and multiple liver lesions. Trace right pleural effusion was noted. He was started on Rocephin and Zithromax and admitted to the hospital for further cares. Antigen test for pneumococcal pneumonia and Legionella are negative. He was slow to improve. Oxygen needs increased to 5 L/min. Chest x-ray on 10/14 showed increasing right pleural effusion. He was sent for thoracentesis and only 100 mL of fluid was able to be obtained due to loculation. Pulmonary medicine was consulted. Hospital course was complicated by atrial fibrillation with rapidventricular response with heart rate in 140s. He had some relative hypotension with systolic blood pressure of around 95. He was transferred to the ICU for close monitoring and started on amiodarone infusion. Patient spontaneously converted to sinus rhythm at about 10 AM on 10/15/2024. Continues to have some paroxysms of atrial fibrillation. Now on oral amiodarone. Treating with as needed IV metoprolol and have transitioned from carvedilol to oral metoprolol for better rate control. Today: Remains on 4 LPM letter provided for his re: work Increased carb counting insulin to 2 units per 10 g carbohydrate from 2 per 15 Updated his mother at the bedside Discussed with PT, likely TCU versus acute rehab Problem list: Acute hypoxic respiratory failure Suspect postviral syndrome bacterial community-acquired pneumonia and right lower lung Likely right parapneumonic effusion Acute metabolic encephalopathy, likely related to above with falls -Was initially treated with Rocephin and Zithromax. This was changed to Zosyn on 10/14 -Hypoxia persists but oxygen rate seems to be going down. Continue to wean oxygen as able -Pulmonary consult for suspected right parapneumonic effusion -IR consult placed by pulmonary medicine for chest tube placement for complex right pleural effusion. -- Chest tube placed on 10/16. --cultures negative. Plan for 10 days of Zosyn given slow improvement, though defer to pulmonology if they feel a longer course is reasonable. Atrial fibrillation with rapid ventricular response Relative hypotension Previous aortic valve replacement for aortic valve regurgitation -Converted to sinus rhythm 10/15. -Transitioned from amiodarone infusion to oral amiodarone for 1 month on 10/16. -Continue prior to admission Eliquis -Back in A-fib with borderline rate control on 10/17. Transition from carvedilol 12.5 mg twice dailyto Toprol-XL 50 mg twice daily with good effect. Back in NSR Hyponatremia Acute on chronic -initially felt to be hypovolemic related, appears to be acute on chronic issue (noted to have component of SIADH when admitted with COVID and had hyponatremia in 02/2022) -Improved -urine sodium <20 and urine osm 715 History of right frontal lobe astrocytoma with resection Seizure disorder Recrudescence of left upper and lower extremity weakness related to acute illness -He had left arm and leg weakness with his astrocytoma that improved after treatment. When he is ill he has recurrence of this weakness. He has had some recurrence of this weakness prior to presentation and during hospital stay. -Obtained MRI brain to ensure no stroke and assess for recurrent astrocytoma. MRI read done with apparent interval development of 1 cm linear focus of restricted diffusion posterior to his known right frontal resection cavity. Unclear if this is ischemia, posttreatment change or recurrence. Recommendation is for ongoing radiographic follow-up. -Continue prior to admission Lamictal Insulin-dependent diabetes: I note that he is chronically on metformin and also has an insulin pump. Hyperglycemia: Improved -Normally manages with insulin pump but has not been eating well or feeling well so this was stopped during hospital stay -Increased Lantus insulin to 30units daily -Change prandial NovoLog to 2 unit for every 10 g of carbohydrates -Continue high intensity sliding scale Hyperlipidemia -Continue prior to admission ezetimibe Liver lesions -Noted on initial CT of chest -Patient and state that they were aware of these but I cannot find previous abdominal imaging -MRI obtained on 10/14 confirmed lesions raising question of metastatic disease -May need biopsy at some point. I would favor waiting until clinically improved. He follows in the [facility] system and this can likely be done as an outpatient. Diet: Combination Diet Moderate Consistent Carb (60 g CHO per Meal) Diet Fluid restriction 2000 ML FLUID Snacks/Supplements Adult: Other; Stawb glucerna with B, Gelatein+ sanchez with L, strawb glucerna with D; With Meals DVT Prophylaxis: DOAC Cai Catheter: Not present Lines: None Cardiac Monitoring: ACTIVE order. Indication: Tachyarrhythmias, acute (48 hours) Code Status: Full Code Clinically Significant Risk Factors # Hypoalbuminemia: Lowest albumin = 2.9 g/dL at 10/14/2024 10:24 AM, will monitor as appropriate # Hypertension: Noted on problem list # Overweight: Estimated body mass index is 26.21 kg/m?? as calculated from the following: Height as of this encounter: 1.753 m (5' 9). Weight as of this encounter: 80.5 kg (177 lb 7.5 oz). Social Drivers of Health Physical Activity: Insufficiently Active (07/12/2023) Exercise Vital Sign Days of Exercise per Week: 3 days Minutes of Exercise per Session: 30 min Stress: Patient Declined (07/12/2023) [place] [employer] - Occupational Stress Questionnaire Feeling of Stress : Patient declined Disposition Plan Medically Ready for Discharge: Anticipated in 2-4 Days Might need tcu. Chris Suarez MD Hospitalist Service [facility] Securely message with [employer] (more info) Text page via [employer] Paging/Directory Interval History Increasing carb counting insulin as above Letter provided to his for work reasons 4 L/min O2 Repeat x-ray pending Chest tube output waning Physical Exam Vital Signs: Temp: 99.9 ??F (37.7 ??C) Temp src: Oral BP: 127/87 Pulse: 72 Resp: 18 SpO2: 95 % O2 Device: Nasal cannula Oxygen Delivery: 4 LPM Weight: 177 lbs 7.52 oz GENERAL: Comfortable. Cooperative. PSYCH: pleasant, oriented, No acute distress. EYES: PERRLA, Normal conjunctiva. HEART: Tachycardic and slightly irregular. LUNGS: Clear to auscultation, normal Respiratory effort. Chest tube at the bedside. ABDOMEN: Soft, no hepatosplenomegaly, normal bowel sounds. EXTREMETIES: No clubbing, cyanosis or ischemia SKIN: Dry to touch, No rash. Medical Decision Making 60 MINUTES SPENT BY ME on the date of service doing chart review, history, exam, documentation & further activities per the note. Data I have personally reviewed the following data over the past 24 hrs: N/A \ N/A / N/A N/A N/A N/A / 170 (H) N/A N/A 0.78 \ Imaging results reviewed over the past 24 hrs: No results found for this or any previous visit (from the past 24 hours). Recent Labs Lab 10/19/24 0634 10/19/24 0217 10/18/24 2131 10/18/24 1640 10/18/24 0827 10/18/24 0633 10/17/24 1243 10/17/24 0653 10/15/24 0640 10/15/24 0545 10/14/24 1138 10/14/24 1024 10/14/24 0816 10/14/24 0606 10/13/24 0840 10/13/24 0701 WBC -- -- -- -- -- -- -- -- -- 10.7 -- -- -- 13.5* -- 13.4* HGB -- -- -- -- -- -- -- -- -- 12.9* -- -- -- 13.4 -- 12.7* MCV -- -- -- -- -- -- -- -- -- 87 -- -- -- 86 -- 87 PLT -- -- -- -- -- -- -- -- -- 240 -- -- -- 196 -- 167 NA -- -- -- -- -- 139 -- -- -- 131* -- -- -- 129* < > 126* POTASSIUM -- -- -- -- -- 3.4 -- -- -- 4.0 -- -- -- 4.8 -- 4.4 CHLORIDE -- -- -- -- -- 99 -- -- -- 95* -- -- -- 92* -- 91* CO2 -- -- -- -- -- 31* -- -- -- 23 -- -- -- 19* -- 24 BUN -- -- -- -- -- 22.6 -- -- -- 27.6* -- -- -- 30.8* -- 24.7* CR 0.78 -- -- -- -- 0.71 -- 0.71 < > 0.89 -- -- -- 0.93 -- 0.80 ANIONGAP -- -- -- -- -- 9 -- -- -- 13 -- -- -- 18* -- 11 LUIS -- -- -- -- -- 8.5* -- -- -- 8.6* -- -- -- 9.0 -- 8.9 GLC -- 170* 195* 255* < > 117* < > -- < > 260* < > -- < > 283* < > 318* ALBUMIN -- -- -- -- -- -- -- -- -- -- -- 2.9* -- -- -- 3.3* PROTTOTAL -- -- -- -- -- -- -- -- -- -- -- 5.8* 5.8* -- -- -- 5.9* BILITOTAL -- -- -- -- -- -- -- -- -- -- -- 0.4 -- -- -- 0.8 ALKPHOS -- -- -- -- -- -- -- -- -- -- -- 108 -- -- -- 95 ALT -- -- -- -- -- -- -- -- -- -- -- 20 -- -- -- 20 AST -- -- -- -- -- -- -- -- -- -- -- 17 -- -- -- 18 < > = values in this interval not displayed. 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 He presented to the ED on 10/12/2024 after a fall. Of note, he had had influenza about 10 days earlier. He felt weak and had had some recurrence of left arm and leg weakness like he had with his astrocytoma. Emergency department evaluation showed hypoxia with need of oxygen at 2 L/min. Laboratory evaluation showed sodium 130, white blood cells 14.4, and negative testing for COVID/influenza/RSV. CT of head showed no acute process. CT of chest with PE protocol showed no PE. It did show right lower lung pneumonia and multiple liver lesions. Trace right pleural effusion was noted. He was started on Rocephin and Zithromax and admitted to the hospital for further cares. Antigen test for pneumococcal pneumonia and Legionella are negative. He was slow to improve. Oxygen needs increased to 5 L/min. Chest x-ray on 10/14 showed increasing right pleural effusion. He was sent for thoracentesis and only 100 mL of fluid was able to be obtained due to loculation. Pulmonary medicine was consulted. Hospital course was complicated by atrial fibrillation with rapidventricular response with heart rate in 140s. He had some relative hypotension with systolic blood pressure of around 95. He was transferred to the ICU for close monitoring and started on amiodarone infusion. Patient spontaneously converted to sinus rhythm at about 10 AM on 10/15/2024. Continues to have some paroxysms of atrial fibrillation. Now on oral amiodarone. Treating with as needed IV metoprolol and have transitioned from carvedilol to oral metoprolol for better rate control. Today: Chest x-ray yesterday shows improvement in pleural effusion Transition from carvedilol to metoprolol, consolidating to Toprol-XL today Spoke with radiology yesterday, preliminary MRI read done with apparent interval development of 1 cm linear focus of restricted diffusion posterior to his known right frontal resection cavity. Unclear if this is ischemia, posttreatment change or recurrence. Recommendation is for ongoing radiographic follow-up. Glucose better today, a.m. blood sugar of 117. Will keep regimen as is Problem list: Acute hypoxic respiratory failure Suspect postviral syndrome bacterial community-acquired pneumonia and right lower lung Likely right parapneumonic effusion Acute metabolic encephalopathy, likely related to above with falls -Has been slow to improve with oxygen needs rising to 5 L/min on 10/14, now improved to about 3 L/min. -Was initially treated with Rocephin and Zithromax. This was changed to Zosyn and vancomycin on 10/14 -Hypoxia persists but oxygen rate seems to be going down. Continue to wean oxygen as able -Pulmonary consult for suspected right parapneumonic effusion -IR consult placed by pulmonary medicine for chest tube placement for complex right pleural effusion. -- Chest tube placed on 10/16. Atrial fibrillation with rapid ventricular response Relative hypotension Previous aortic valve replacement for aortic valve regurgitation -Converted to sinus rhythm 10/15. -Transitioned from amiodarone infusion to oral amiodarone for 1 month on 10/16. -Continue prior to admission Eliquis -Back in A-fib with borderline rate control on 10/17. Transition from carvedilol 12.5 mg twice dailyto Toprol-XL 50 mg twice daily with good effect. Back in NSR Hyponatremia Acute on chronic -initially felt to be hypovolemic related, appears to be acute on chronic issue (noted to have component of SIADH when admitted with COVID and had hyponatremia in 02/2022) -Improved -urine sodium <20 and urine osm 715 History of right frontal lobe astrocytoma with resection Seizure disorder Recrudescence of left upper and lower extremity weakness related to acute illness -He had left arm and leg weakness with his astrocytoma that improved after treatment. When he is ill he has recurrence of this weakness. He has had some recurrence of this weakness prior to presentation and during hospital stay. -Obtained MRI brain to ensure no stroke and assess for recurrent astrocytoma. MRI read done with apparent interval development of 1 cm linear focus of restricted diffusion posterior to his known right frontal resection cavity. Unclear if this is ischemia, posttreatment change or recurrence. Recommendation is for ongoing radiographic follow-up. -Continue prior to admission Lamictal Insulin-dependent diabetes: I note that he is chronically on metformin and also has an insulin pump. Hyperglycemia: Improved -Normally manages with insulin pump but has not been eating well or feeling well so this was stopped during hospital stay -Increased Lantus insulin to 30units daily -Change prandial NovoLog to 2 unit for every 15 g of carbohydrates -Continue high intensity sliding scale Hyperlipidemia -Continue prior to admission ezetimibe Liver lesions -Noted on initial CT of chest -Patient and state that they were aware of these but I cannot find previous abdominal imaging -MRI obtained on 10/14 confirmed lesions raising question of metastatic disease -May need biopsy at some point. I would favor waiting until clinically improved. He follows in the [facility] system and this can likely be done as an outpatient. Diet: Fluid restriction 1500 ML FLUID Combination Diet Moderate Consistent Carb (60 g CHO per Meal) Diet Snacks/Supplements Adult: Other; Stawb glucerna with B, Gelatein+ sanchez with L, saud MC with D; With Meals DVT Prophylaxis: DOAC Cai Catheter: Not present Lines: None Cardiac Monitoring: ACTIVE order. Indication: Tachyarrhythmias, acute (48 hours) Code Status: Full Code Clinically Significant Risk Factors # Hypoalbuminemia: Lowest albumin = 2.9 g/dL at 10/14/2024 10:24 AM, will monitor as appropriate # Hypertension: Noted on problem list # Overweight: Estimated body mass index is 26.21 kg/m?? as calculated from the following: Height as of this encounter: 1.753 m (5' 9). Weight as of this encounter: 80.5 kg (177 lb 7.5 oz). Social Drivers of Health Physical Activity: Insufficiently Active (07/12/2023) Exercise Vital Sign Days of Exercise per Week: 3 days Minutes of Exercise per Session: 30 min Stress: Patient Declined (07/12/2023) [place] [employer] - Occupational Stress Questionnaire Feeling of Stress : Patient declined Disposition Plan Medically Ready for Discharge: Anticipated in 2-4 Days Might need tcu. Chris Suarez MD Hospitalist Service [facility] Securely message with [employer] (more info) Text page via [facility] Paging/Directory Interval History Blood sugar improved, keeping regimen the same today See above regarding MRI result. Currently on 5 L/min but chest x-ray yesterday showed improvement in pleural effusion PT consult, ?need for tcu Back in NSR, consolidating metoprolol dosing. Physical Exam Vital Signs: Temp: 98.1 ??F (36.7 ??C) Temp src: Oral BP: 133/85 Pulse: 71 Resp: 20 SpO2: 96 % O2 Device: Nasal cannula Oxygen Delivery: 4 LPM Weight: 177 lbs 7.52 oz GENERAL: Comfortable. Cooperative. PSYCH: pleasant, oriented, No acute distress. EYES: PERRLA, Normal conjunctiva. HEART: Tachycardic and slightly irregular. LUNGS: Clear to auscultation, normal Respiratory effort. Chest tube at the bedside. ABDOMEN: Soft, no hepatosplenomegaly, normal bowel sounds. EXTREMETIES: No clubbing, cyanosis or ischemia SKIN: Dry to touch, No rash. Medical Decision Making 60 MINUTES SPENT BY ME on the date of service doing chart review, history, exam, documentation & further activities per the note. Data Imaging results reviewed over the past 24 hrs: Recent Results (from the past 24 hours) XR Chest Port 1 View Narrative EXAM: XR CHEST PORT 1 VIEW LOCATION: [facility] DATE: 10/17/2024 INDICATION: post right chest tube placement for right pleural effusion COMPARISON: 10/15/2024 Impression IMPRESSION: Decreased right pleural effusion with a right chest tube in place. Stable small left pleural effusion and bibasilar atelectasis. Median sternotomy and aortic valvular prosthesis. No pneumothorax. Recent Labs Lab 10/18/24 0827 10/18/24 0633 10/17/24 2108 10/17/24 1243 10/17/24 0653 10/16/24 0814 10/16/24 0744 10/15/24 0640 10/15/24 0545 10/14/24 1138 10/14/24 1024 10/14/24 0816 10/14/24 0606 10/13/24 0840 10/13/24 0701 WBC -- -- -- -- -- -- -- -- 10.7 -- -- -- 13.5* -- 13.4* HGB -- -- -- -- -- -- -- -- 12.9* -- -- -- 13.4 -- 12.7* MCV -- -- -- -- -- -- -- -- 87 -- -- -- 86 -- 87 PLT -- -- -- -- -- -- -- -- 240 -- -- -- 196 -- 167 NA -- 139 -- -- -- -- -- -- 131* -- -- -- 129* < > 126* POTASSIUM -- 3.4 -- -- -- -- -- -- 4.0 -- -- -- 4.8 -- 4.4 CHLORIDE -- 99 -- -- -- -- -- -- 95* -- -- -- 92* -- 91* CO2 -- 31* -- -- -- -- -- -- 23 -- -- -- 19* -- 24 BUN -- 22.6 -- -- -- -- -- -- 27.6* -- -- -- 30.8* -- 24.7* CR -- 0.71 -- -- 0.71 -- 0.68 -- 0.89 -- -- -- 0.93 -- 0.80 ANIONGAP -- 9 -- -- -- -- -- -- 13 -- -- -- 18* -- 11 LUIS -- 8.5* -- -- -- -- -- -- 8.6* -- -- -- 9.0 -- 8.9 GLC 105* 117* 255* < > -- < > -- < > 260* < > -- < > 283* < > 318* ALBUMIN -- -- -- -- -- -- -- -- -- -- 2.9* -- -- -- 3.3* PROTTOTAL -- -- -- -- -- -- -- -- -- -- 5.8* 5.8* -- -- -- 5.9* BILITOTAL -- -- -- -- -- -- -- -- -- -- 0.4 -- -- -- 0.8 ALKPHOS -- -- -- -- -- -- -- -- -- -- 108 -- -- -- 95 ALT -- -- -- -- -- -- -- -- -- -- 20 -- -- -- 20 AST -- -- -- -- -- -- -- -- -- -- 17 -- -- -- 18 < > = values in this interval not displayed. CTOR VIDEO * Chris Suarez MD - 10/17/2024 3:52 PM CST Update: Change from coreg to PO metoprolol tartrate 25 mg TID for better rate control. Plan to consolidate dosing/titrate as needed. Also has prn IV metoprolol available. Chris Suarez MD CTOR VIDEO * Kayla Baca MD - 10/17/2024 2:46 PM CST Images from the original note were not included. 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 He presented to the ED on 10/12/2024 after a fall. He was found to be hypoxemic in the ED and CT of chest with PE protocol showed no PE. It did show right lower lung pneumonia and multiple liver lesions. Trace right pleural effusion was noted. He wasstarted on Rocephin and Zithromax and admitted to the hospital for further cares. Antigen test for pneumococcal pneumonia and Legionella are negative. Acute hypoxic respiratory failure Suspect postviral syndrome bacterial community-acquired pneumonia and right lower lung Small parapneumonic effusion based on CT chest on 10/12 s/p chest tube placement on 10/16 - Repeat CXR today and if no significant improve aeration, will consider flushing tube. Tpa-Dornasewill be considered although patient has increased risk of bleeding due to concomitant use of oral anticoagulation (relative contra-indication). - Agree with current antibiotics - pleural studies have been reviewed. Kayla Baca MD Pulmonary, Allergy, Critical Care and Sleep Medicine [facility] Interval History: Minimal drainage per tube ~ 120 ml. Still requiring O2 and continues to have pleuritic chest pains Review of Systems: 12-point ROS was reviewed and normal other than stated above. Medications: Current Facility-Administered Medications Medication Dose Route Frequency Provider Last Rate Last Admin amiodarone (PACERONE) tablet 200 mg 200 mg Oral BID Chris Suarez MD 200 mg at 10/17/24 0629 apixaban ANTICOAGULANT (ELIQUIS) tablet 5 mg 5 mg Oral BID Chris Suarez MD 5 mg at10/17/24 0828 carvedilol (COREG) tablet 12.5 mg 12.5 mg Oral BID w/meals Bernardino Garcia MD 12.5 mg at 10/17/24 0629 diclofenac (VOLTAREN) 1 % topical gel 2 g 2 g Topical 4x Daily Bernardino Garcia MD 2 g at 10/17/24 0833 ezetimibe (ZETIA) tablet 10 mg 10 mg Oral QPM Bernardino Garcia MD 10 mg at 10/16/24 1926 guaiFENesin (MUCINEX) 12 hr tablet 600 mg 600 mg Oral BID Bernardino Garcia MD 600 mg at 10/17/24 0829 insulin aspart (NovoLOG) injection (RAPID ACTING) 1-10 Units Subcutaneous TID AC Chris Suarez MD 6 Units at 10/17/24 1249 insulin aspart (NovoLOG) injection (RAPID ACTING) 1-7 Units Subcutaneous At Bedtime Chris Suarez MD 4 Units at 10/16/24 2146 insulin aspart (NovoLOG) injection (RAPID ACTING) Subcutaneous TID w/meals Chris Suarez MD 4 Units at 10/17/24 1400 insulin glargine (LANTUS PEN) injection 30 Units 30 Units Subcutaneous At Bedtime Chris Suarez MD lamoTRIgine (LaMICtal) tablet 300 mg 300 mg Oral BID Bernardino Garcia MD 300 mg at 10/17/24 0829 Lidocaine (LIDOCARE) 4 % Patch 1 patch 1 patch Transdermal Q24H Bernardino Garcia MD 1 patch at 10/17/24 0829 lisinopril (ZESTRIL) tablet 30 mg 30 mg Oral Daily Bernardino Garcia MD 30 mg at 10/17/24 0828 metFORMIN (GLUCOPHAGE) tablet 500 mg 500 mg Oral Daily with supper Bernardino Garcia MD 500 mg at 10/16/24 1737 multivitamin w/minerals (THERA-VIT-M) tablet 1 tablet 1 tablet Oral Daily Bernardino Garcia MD 1 tablet at 10/17/24 0829 piperacillin-tazobactam (ZOSYN) 3.375 g vial to attach to NS 100 mL bag 3.375 g Intravenous Q6H Bernardino Garcia MD 200 mL/hr at 10/16/24 1927 3.375 g at 10/17/24 0828 psyllium (METAMUCIL/KONSYL) capsule 5 capsule 5 capsule Oral Daily Bernardino Garcia MD 5 capsule at 10/17/24 0834 sodium chloride (PF) 0.9% PF flush 3 mL 3 mL Intracatheter Q8H Bernardino Garcia MD 3 mL at 10/17/24 0829 Current Facility-Administered Medications Medication Dose Route Frequency Provider Last Rate Last Admin acetaminophen (TYLENOL) tablet 650 mg 650 mg Oral Q4H PRN Bernardino Garcia MD 650 mg at 10/16/24 1926 Or acetaminophen (TYLENOL) Suppository 650 mg 650 mg Rectal Q4H PRN Bernardino Garcia MD benzonatate (TESSALON) capsule 100 mg 100 mg Oral TID PRN Beranrdino Garcia MD 100 mg at 10/15/24 0929 bisacodyl (DULCOLAX) suppository 10 mg 10 mg Rectal Daily PRN Bernardino Garcia MD 10 mg at 10/15/24 1158 calcium carbonate (TUMS) chewable tablet 1,000 mg 1,000 mg Oral 4x Daily PRN Bernardino Garcia MD carboxymethylcellulose PF (REFRESH PLUS) 0.5 % ophthalmic solution 1 drop 1 drop Both Eyes Q1H PRN Bernardino Garcia MD glucose gel 15-30 g 15-30 g Oral Q15 Min PRN Bernardino Garcia MD Or dextrose 50 % injection 25-50 mL 25-50 mL Intravenous Q15 Min PRN Bernardino Garcia MD Or glucagon injection 1 mg 1 mg Subcutaneous Q15 Min PRN Bernardino Garcia MD HYDROmorphone (DILAUDID) injection 0.2 mg 0.2 mg Intravenous Q4H PRN Bernardino Garcia MD 0.2 mg at 10/13/24 1838 hydrOXYzine HCl (ATARAX) tablet 25 mg 25 mg Oral Q6H PRN Bernardino Garcia MD 25 mg at 10/14/24 1141 lidocaine (LMX4) cream Topical Q1H PRN Bernardino Garcia MD lidocaine 1 % 0.1-1 mL 0.1-1 mL Other Q1H PRN Bernardino Garcia MD lidocaine 1 % 1-30 mL 1-30 mL Intradermal Once PRN Joanna León APRN CNP metoprolol (LOPRESSOR) injection 5 mg 5 mg Intravenous Q4H PRN Chris Suarez MD naloxone (NARCAN) injection 0.2 mg 0.2 mg Intravenous Q2 Min PRN Bernardino Garcia MD Or naloxone (NARCAN) injection 0.4 mg 0.4 mg Intravenous Q2 Min PRN Bernardino Garcia MD Or naloxone (NARCAN) injection 0.2 mg 0.2 mg Intramuscular Q2 Min PRN Bernardino Garcia MD Or naloxone (NARCAN) injection 0.4 mg 0.4 mg Intramuscular Q2 Min PRN Bernardino Garcia MD ondansetron (ZOFRAN ODT) ODT tab 4 mg 4 mg Oral Q6H PRN Bernardino Garcia MD Or ondansetron (ZOFRAN) injection 4 mg 4 mg Intravenous Q6H PRN Bernardino Garcia MD oxyCODONE (ROXICODONE) tablet 5 mg 5 mg Oral Q4H PRN Bernardino Garcia MD 5 mg at 10/16/24 1737 senna-docusate (SENOKOT-S/PERICOLACE) 8.6-50 MG per tablet 1 tablet 1 tablet Oral BID PRN Bernardino Garcia MD 1 tablet at 10/15/24 0914 Or senna-docusate (SENOKOT-S/PERICOLACE) 8.6-50 MG per tablet 2 tablet 2 tablet Oral BID PRN Bernardino Garcia MD sodium chloride (PF) 0.9% PF flush 3 mL 3 mL Intracatheter q1 min prn Bernardino Garcia MD 3 mL at10/16/24 1356 tiZANidine (ZANAFLEX) tablet 2-4 mg 2-4 mg Oral Q8H PRN Bernardino Garcia MD 2 mg at 10/14/24 1700 Physical Exam: Temp: [97.4 ??F (36.3 ??C)-100.8 ??F (38.2 ??C)] 97.6 ??F (36.4 ??C) Pulse: [60-127] 127 Resp: [] 25 BP: (106-161)/(66-90) 122/87 SpO2: [90 %-98 %] 90 % Intake/Output Summary (Last 24 hours) at 10/17/2024 1447 Last data filed at 10/17/2024 0856 Gross per 24 hour Intake 598 ml Output 890 ml Net -292 ml Temp: [97.4 ??F (36.3 ??C)-100.8 ??F (38.2 ??C)] 97.6 ??F (36.4 ??C) Pulse: [60-127] 127 Resp: [] 25 BP: (106-161)/(66-90) 122/87 SpO2: [90 %-98 %] 90 % Intake/Output Summary (Last 24 hours) at 10/17/2024 1447 Last data filed at 10/17/2024 0856 Gross per 24 hour Intake 598 ml Output 890 ml Net -292 ml Temp Av.5 ??F (36.9 ??C) Min: 97.4 ??F (36.3 ??C) Max: 100.8 ??F (38.2 ??C) Pulse Av.3 Min: 60 Max: 145 Resp Av.4 Min: 12 Max: 69 SpO2 Av.6 % Min: 85 % Max: 100 % Intake/Output Summary (Last 24 hours) at 10/17/2024 1447 Last data filed at 10/17/2024 0856 Gross per 24 hour Intake 598 ml Output 890 ml Net -292 ml Wt Readings from Last 4 Encounters: 10/16/24 80.5 kg (177 lb 7.5 oz) 07/11/24 84.5 kg (186 lb 3.2 oz) 06/16/24 83.9 kg (185 lb) 05/30/24 83.9 kg (185 lb) Constitutional: Awake, alert and in no apparent distress Eyes: nonicteric ENT: oral mucosa moist without lesions Neck: Supple without supraclavicular or cervical lymphadenopathy Lungs: Right chest tube in place. Cardiovascular: Normal S1 and S2. RRR. No murmur, gallop or rub. Abdomen: NABS, soft, nontender, nondistended. No HSM. Musculoskeletal: No edema Neurologic: Alert and conversant. Skin: Warm, dry. No rash on limited exam. Current Laboratory Data: All laboratory and imaging data reviewed. Results for orders placed or performed during the hospital encounter of 10/12/24 (from the past 24 hours) Glucose by meter Result Value Ref Range GLUCOSE BY METER POCT 284 (H) 70 - 99 mg/dL Glucose by meter Result Value Ref Range GLUCOSE BY METER POCT 292 (H) 70 - 99 mg/dL Glucose by meter Result Value Ref Range GLUCOSE BY METER POCT 186 (H) 70 - 99 mg/dL Creatinine Result Value Ref Range Creatinine 0.71 0.67 - 1.17 mg/dL GFR Estimate >90 >60 mL/min/1.73m2 Magnesium Result Value Ref Range Magnesium 2.2 1.7 - 2.3 mg/dL Phosphorus Result Value Ref Range Phosphorus 3.5 2.5 - 4.5 mg/dL Extra Purple Top EDTA (LAB USE ONLY) Result Value Ref Range Hold Specimen JIC Glucose by meter Result Value Ref Range GLUCOSE BY METER POCT 278 (H) 70 - 99 mg/dL .No lab results found in last 7 days. Previous Pulmonary Function Testing ..Most Recent Breeze Pulmonary Function Testing No results found for: No results found for: No results found for: No results found for: No results found for: No results found for: [id number] No results found for: No results found for: No results found for: No results found for: No results found for: No results found for: No results found for: No results found for: No results found for: No results found for: Previous Chest Imaging Previous Cardiology Imaging @[id number]@ CTOR VIDEO * Chris Suarez MD - 10/17/2024 7:46 AM CST [facility] Medicine Progress Note - Hospitalist Service Date of Admission: 10/12/2024 Assessment & Plan Alena Rae is a 63 year old male with history of type I diabetes, seizures, 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 He presented to the ED on 10/12/2024 after a fall. Of note, he had had influenza about 10 days earlier. He felt weak and had had some recurrence of left arm and leg weakness like he had with his astrocytoma. Emergency department evaluation showed hypoxia with need of oxygen at 2 L/min. Laboratory evaluation showed sodium 130, white blood cells 14.4, and negative testing for COVID/influenza/RSV. CT of head showed no acute process. CT of chest with PE protocol showed no PE. It did show right lower lung pneumonia and multiple liver lesions. Trace right pleural effusion was noted. He was started on Rocephin and Zithromax and admitted to the hospital for further cares. Antigen test for pneumococcal pneumonia and Legionella are negative. He was slow to improve. Oxygen needs increased to 5 L/min. Chest x-ray on 10/14 showed increasing right pleural effusion. He was sent for thoracentesis and only 100 mL of fluid was able to be obtained due to loculation. Pulmonary medicine was consulted. Hospital course was complicated by atrial fibrillation with rapidventricular response with heart rate in 140s. He had some relative hypotension with systolic blood pressure of around 95. He was transferred to the ICU for close monitoring and started on amiodarone infusion. Patient spontaneously converted to sinus rhythm at about 10 AM on 10/15/2024. Continues to have some paroxysms of atrial fibrillation. Now on oral amiodarone. Treating with as needed IV metoprolol. Today: S/p IR placement of chest tube Fever of 100.8 after chest tube placement Increasing Lantus to 30 units Very slightly increasing carb counting insulin to 2 units per 15 g carbohydrate Back in A-fib this morning with rates in the low 100s. Adding as needed IV metoprolol. Problem list: Acute hypoxic respiratory failure Suspect postviral syndrome bacterial community-acquired pneumonia and right lower lung Likely right parapneumonic effusion Acute metabolic encephalopathy, likely related to above with falls -Has been slow to improve with oxygen needs rising to 5 L/min on 10/14, now improved to about 3 L/min. -Was initially treated with Rocephin and Zithromax. This was changed to Zosyn and vancomycin on 10/14 -Hypoxia persists but oxygen rate seems to be going down. Continue to wean oxygen as able -Pulmonary consult for suspected right parapneumonic effusion -IR consult placed by pulmonary medicine for chest tube placement for complex right pleural effusion. -- Chest tube placed on 10/16. Atrial fibrillation with rapid ventricular response Relative hypotension Previous aortic valve replacement for aortic valve regurgitation -Converted to sinus rhythm 10/15. -Transitioned from amiodarone infusion to oral amiodarone for 1 month on 10/16. -Continue prior to admission Eliquis -Back in A-fib with borderline rate control on 10/17. Treating with a single dose of IV metoprolol and will have as needed doses available. Might be driven by pain from the chest tube. Treat pain. Hyponatremia Acute on chronic -initially felt to be hypovolemic related, appears to be acute on chronic issue (noted to have component of SIADH when admitted with COVID and had hyponatremia in 02/2022) -Improved -urine sodium <20 and urine osm 715 History of right frontal lobe astrocytoma with resection Seizure disorder Recrudescence of left upper and lower extremity weakness related to acute illness -He had left arm and leg weakness with his astrocytoma that improved after treatment. When he is ill he has recurrence of this weakness. He has had some recurrence of this weakness prior to presentation and during hospital stay. -Obtain MRI brain to ensure no stroke and assess for recurrent astrocytoma. Formal interpretation still pending. Called radiology to request this be read camille -Continue prior to admission Lamictal Insulin-dependent diabetes: I note that he is chronically on metformin and also has an insulin pump. Hyperglycemia -Normally manages with insulin pump but has not been eating well or feeling well so this was stopped during hospital stay -Increase Lantus insulin to 26 units daily -Change prandial NovoLog to 2 unit for every 15 g of carbohydrates -Continue high intensity sliding scale Hyperlipidemia -Continue prior to admission ezetimibe Liver lesions -Noted on initial CT of chest -Patient and state that they were aware of these but I cannot find previous abdominal imaging -MRI obtained on 10/14 confirmed lesions raising question of metastatic disease -May need biopsy at some point. I would favor waiting until clinically improved. He follows in the [facility] system and this can likely be done as an outpatient. Diet: Fluid restriction 1500 ML FLUID Combination Diet Moderate Consistent Carb (60 g CHO per Meal) Diet Snacks/Supplements Adult: Other; Stawb glucerna with B, Gelatein+ sanchez with L, saud MC with D; With Meals DVT Prophylaxis: DOAC Cai Catheter: Not present Lines: None Cardiac Monitoring: ACTIVE order. Indication: Tachyarrhythmias, acute (48 hours) Code Status: Full Code Clinically Significant Risk Factors # Hypoalbuminemia: Lowest albumin = 2.9 g/dL at 10/14/2024 10:24 AM, will monitor as appropriate # Hypertension: Noted on problem list # Overweight: Estimated body mass index is 26.21 kg/m?? as calculated from the following: Height as of this encounter: 1.753 m (5' 9). Weight as of this encounter: 80.5 kg (177 lb 7.5 oz). Social Drivers of Health Physical Activity: Insufficiently Active (07/12/2023) Exercise Vital Sign Days of Exercise per Week: 3 days Minutes of Exercise per Session: 30 min Stress: Patient Declined (07/12/2023) [place] - Occupational Stress Questionnaire Feeling of Stress : Patient declined Disposition Plan Medically Ready for Discharge: Anticipated in 2-4 Days Chris Suarez MD Hospitalist Service [facility] Securely message with [employer] (more info) Text page via [facility] Paging/Directory Interval History Underwent chest tube placement yesterday, did have a fever of 100.8 afterwards Increasing Lantus and slightly increasing mealtime aspart as above MRI brain completed but interpretation still pending. Called radiology. Back in A-fib this morning with rates in the low 100s. Adding as needed IV metoprolol Physical Exam Vital Signs: Temp: 97.4 ??F (36.3 ??C) Temp src: Oral BP: 134/90 Pulse: 108 Resp: 25 SpO2: 98 % O2 Device: Nasal cannula Oxygen Delivery: 3 LPM Weight: 177 lbs 7.52 oz GENERAL: Comfortable. Cooperative. PSYCH: pleasant, oriented, No acute distress. EYES: PERRLA, Normal conjunctiva. HEART: Tachycardic and slightly irregular. LUNGS: Clear to auscultation, normal Respiratory effort. Chest tube at the bedside. ABDOMEN: Soft, no hepatosplenomegaly, normal bowel sounds. EXTREMETIES: No clubbing, cyanosis or ischemia SKIN: Dry to touch, No rash. Medical Decision Making 60 MINUTES SPENT BY ME on the date of service doing chart review, history, exam, documentation & further activities per the note. Data I have personally reviewed the following data over the past 24 hrs: N/A \ N/A / N/A N/A N/A N/A / 186 (H) N/A N/A 0.71 \ Imaging results reviewed over the past 24 hrs: Recent Results (from the past 24 hours) US Chest Tube Insert Narrative PROCEDURE: Ultrasound guided right sided 10 [place]i chest tube placement DATE: 10/16/2024 MEDICATIONS: 1% [...] Lidocaine. Under direct ultrasound guidance, a 5 [place]i [employer] needle was advanced into the pleural space via an intercostal approach. The catheter was advanced off of the needle. A 0.035 guidewire was advanced through the micropuncture sheath and the tract was serially dilated. A 10 [place]i locking loop chest tube was placed with the tip coiledin the pleural space. The catheter was sutured to the skin using 2-0 silk suture. A sterile dressing was applied. Approximately 20 mL of sero-sanguinous fluid was removed. The chest tube was connected to a Pleur-evac device in the interventional suite. Throughout the procedure, the patient was monitored by a radiology nurse for cardiac rhythm and oxygen saturation which remained stable. The patient tolerated the procedure well and left interventional radiology in stable condition. Impression IMPRESSION: Right-sided 10 [place]i chest tube placement under ultrasound guidance. Recent Labs Lab 10/17/24 0653 10/17/24 0221 10/16/24 2142 10/16/24 1737 10/16/24 0814 10/16/24 0744 10/15/24 0640 10/15/24 0545 10/14/24 1138 10/14/24 1024 10/14/24 0816 10/14/24 0606 10/13/24 2047 10/13/24 1955 10/13/24 0840 10/13/24 0701 WBC -- -- -- -- -- -- -- 10.7 -- -- -- 13.5* -- -- -- 13.4* HGB -- -- -- -- -- -- -- 12.9* -- -- -- 13.4 -- -- -- 12.7* MCV -- -- -- -- -- -- -- 87 -- -- -- 86 -- -- -- 87 PLT -- -- -- -- -- -- -- 240 -- -- -- 196 -- -- -- 167 NA -- -- -- -- -- -- -- 131* -- -- -- 129* -- 126* -- 126* POTASSIUM -- -- -- -- -- -- -- 4.0 -- -- -- 4.8 -- -- -- 4.4 CHLORIDE -- -- -- -- -- -- -- 95* -- -- -- 92* -- -- -- 91* CO2 -- -- -- -- -- -- -- 23 -- -- -- 19* -- -- -- 24 BUN -- -- -- -- -- -- -- 27.6* -- -- -- 30.8* -- -- -- 24.7* CR 0.71 -- -- -- -- 0.68 -- 0.89 -- -- -- 0.93 -- -- -- 0.80 ANIONGAP -- -- -- -- -- -- -- 13 -- -- -- 18* -- -- -- 11 LUIS -- -- -- -- -- -- -- 8.6* -- -- -- 9.0 -- -- -- 8.9 GLC -- 186* 292* 284* < > -- < > 260* < > -- < > 283* < > -- < > 318* ALBUMIN -- -- -- -- -- -- -- -- -- 2.9* -- -- -- -- -- 3.3* PROTTOTAL -- -- -- -- -- -- -- -- -- 5.8* 5.8* -- -- -- -- -- 5.9* BILITOTAL -- -- -- -- -- -- -- -- -- 0.4 -- -- -- -- -- 0.8 ALKPHOS -- -- -- -- -- -- -- -- -- 108 -- -- -- -- -- 95 ALT -- -- -- -- -- -- -- -- -- 20 -- -- -- -- -- 20 AST -- -- -- -- -- -- -- -- -- 17 -- -- -- -- -- 18 < > = values in this interval not displayed. CTOR VIDEO CTOR VIDEO CTOR VIDEO * Carla Bear RN - 10/16/2024 11:32 AM CST Right 10 trinidadian chest tube placed per Dr. Corral without difficulty, patient tolerated well. No sedation was given, only local lidocaine. See also imaging dictation and post procedure orders. Patient transferred to room via cart in stable condition. Report called to bedside RN. 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 He presented to the ED on 10/12/2024 after a fall. Of note, he had had influenza about 10 days earlier. He felt weak and had had some recurrence of left arm and leg weakness like he had with his astrocytoma. Emergency department evaluation showed hypoxia with need of oxygen at 2 L/min. Laboratory evaluation showed sodium 130, white blood cells 14.4, and negative testing for COVID/influenza/RSV. CT of head showed no acute process. CT of chest with PE protocol showed no PE. It did show right lower lung pneumonia and multiple liver lesions. Trace right pleural effusion was noted. He was started on Rocephin and Zithromax and admitted to the hospital for further cares. Antigen test for pneumococcal pneumonia and Legionella are negative. He was slow to improve. Oxygen needs increased to 5 L/min. Chest x-ray on 10/14 showed increasing right pleural effusion. He was sent for thoracentesis and only 100 mL of fluid was able to be obtained due to loculation. Pulmonary medicine was consulted. Hospital course was complicated by atrial fibrillation with rapidventricular response with heart rate in 140s. He had some relative hypotension with systolic blood pressure of around 95. He was transferred to the ICU for close monitoring and started on amiodarone infusion. Patient spontaneously converted to sinus rhythm at about 10 AM on 10/15/2024. Today: He transferred out of the ICU later on 10/15. Remains on treatment for pneumonia, antibiotics broadened to vancomycin and Zosyn on 10/14. CT chest shows increased loculated pleural effusion. Pulmonary following and ordered IR consult forchest tube placement MRI brain in process to rule out stroke and assess for recurrent astrocytoma. Problem list: Acute hypoxic respiratory failure Suspect postviral syndrome bacterial community-acquired pneumonia and right lower lung Likely right parapneumonic effusion Acute metabolic encephalopathy, likely related to above with falls -Has been slow to improve with oxygen needs rising to 5 L/min on 10/14 -Was initially treated with Rocephin and Zithromax. This was changed to Zosyn and vancomycin on 10/14 -Hypoxia persists but oxygen rate seems to be going down. Continue to wean oxygen as able -Pulmonary consult for suspected right parapneumonic effusion -IR consult placed by pulmonary medicine for chest tube placement for complex right pleural effusion. Atrial fibrillation with rapid ventricular response Relative hypotension Previous aortic valve replacement for aortic valve regurgitation -Converted to sinus rhythm 10/15. -[place] [facility] [place]Transition from amiodarone infusion to oral Eliquis for 1 month on 10/16. -Continue prior to admission Eliquis Hyponatremia Acute on chronic -initially felt to be hypovolemic related, appears to be acute on chronic issue (noted to have component of SIADH when admitted with COVID and had hyponatremia in 02/2022) -Improved -urine sodium <20 and urine osm 715 History of right frontal lobe astrocytoma with resection Seizure disorder Recrudescence of left upper and lower extremity weakness related to acute illness -He had left arm and leg weakness with his astrocytoma that improved after treatment. When he is ill he has recurrence of this weakness. He has had some recurrence of this weakness prior to presentation and during hospital stay. -Obtain MRI brain to ensure no stroke and assess for recurrent astrocytoma -Continue prior to admission Lamictal Type 1 diabetes Hyperglycemia -Normally manages with insulin pump but has not been eating well or feeling well so this was stopped during hospital stay -Increase Lantus insulin to 22 units daily which is more in line with his pump continuous rate of 0.9 units/h -Change prandial NovoLog to 1 unit for every 8 g of carbohydrates -Continue medium resistance sliding scale Hyperlipidemia -Continue prior to admission ezetimibe Liver lesions -Noted on initial CT of chest -Patient and state that they were aware of these but I cannot find previous abdominal imaging -MRI obtained on 10/14 confirmed lesions raising question of metastatic disease -May need biopsy at some point. I would favor waiting until clinically improved. He follows in the [facility] system and this can likely be done as an outpatient. Diet: Fluid restriction 1500 ML FLUID Combination Diet Moderate Consistent Carb (60 g CHO per Meal) Diet Snacks/Supplements Adult: Other; Stawb glucerna with B, Gelatein+ sanchez with L, saud MC with D; With Meals DVT Prophylaxis: DOAC Cai Catheter: Not present Lines: None Cardiac Monitoring: ACTIVE order. Indication: Tachyarrhythmias, acute (48 hours) Code Status: Full Code Clinically Significant Risk Factors # Hyponatremia: Lowest Na = 131 mmol/L in last 2 days, will monitor as appropriate # Hypochloremia: Lowest Cl = 95 mmol/L in last 2 days, will monitor as appropriate # Hypoalbuminemia: Lowest albumin = 2.9 g/dL at 10/14/2024 10:24 AM, will monitor as appropriate # Hypertension: Noted on problem list # Acute Hypoxic Respiratory Failure: Documented O2 saturation < 90%. Continue supplemental oxygen as needed # Overweight: Estimated body mass index is 26.21 kg/m?? as calculated from the following: Height as of this encounter: 1.753 m (5' 9). Weight as of this encounter: 80.5 kg (177 lb 7.5 oz)., PRESENT ON ADMISSION Social Drivers of Health Physical Activity: Insufficiently Active (07/12/2023) Exercise Vital Sign Days of Exercise per Week: 3 days Minutes of Exercise per Session: 30 min Stress: Patient Declined (07/12/2023) [place] [employer] - Occupational Stress Questionnaire Feeling of Stress : Patient declined Disposition Plan Medically Ready for Discharge: Anticipated in 2-4 Days Chris Suarez MD Hospitalist Service [facility] Securely message with [employer] (more info) Text page via [employer] Paging/Directory Interval History Transferred out of the ICU, I assumed care Currently on 2.5 L/min O2 MRI done but formal read pending CT chest shows increased size of moderate right pleural effusion which is now partially loculated. Mild groundglass opacities in the left lung as well. Pulmonology following. Physical Exam Vital Signs: Temp: 98.6 ??F (37 ??C) Temp src: Oral BP: (!) 145/88 Pulse: 79 Resp: 25 SpO2: 93 % [id number]: Nasal cannula Oxygen Delivery: 2.5 LPM Weight: 177 lbs 7.52 oz GENERAL: Comfortable. Cooperative. PSYCH: pleasant, oriented, No acute distress. EYES: PERRLA, Normal conjunctiva. HEART: Regular rate and rhythm. No JVD. Pulses normal. No edema. LUNGS: Clear to auscultation, normal Respiratory effort. ABDOMEN: Soft, no hepatosplenomegaly, normal bowel sounds. EXTREMETIES: No clubbing, cyanosis or ischemia SKIN: Dry to touch, No rash. Medical Decision Making 60 MINUTES SPENT BY ME on the date of service doing chart review, history, exam, documentation & further activities per the note. Data I have personally reviewed the following data over the past 24 hrs: N/A \ N/A / N/A N/A N/A N/A / 230 (H) N/A N/A 0.68 \ Imaging results reviewed over the past 24 hrs: Recent Results (from the past 24 hours) CT Chest w/o Contrast Narrative EXAM: CT CHEST W/O CONTRAST LOCATION: [facility] DATE: 10/15/2024 INDICATION: R pleural effusion COMPARISON: Chest x-ray yesterday and chest CT on 10/12/2024 TECHNIQUE: CT chest without IV contrast. Multiplanar reformats were obtained. Dose reduction techniques were used. CONTRAST: None. FINDINGS: LUNGS AND PLEURA: A [id number] sized partly loculated right pleural effusion predominantly along the upper and mid right lung, increased in size since 10/12/2024. Similarly, small amount of loculated fluid in the right major fissure is new Small layering left pleural effusion is new. Dense atelectasis in the right lung base. New mild groundglass opacities in the left upper lobe and compressive atelectasis in the left lower lobe. MEDIASTINUM/AXILLAE: No lymphadenopathy. Mild cardiomegaly. Aortic valvular prosthesis. CORONARY ARTERY CALCIFICATION: Severe. UPPER ABDOMEN: Redemonstration of indeterminate lesions in the liver, better characterized by the MRI yesterday simple cyst in the left kidney. MUSCULOSKELETAL: Median sternotomy. No suspicious lesions in the bones. Impression IMPRESSION: 1. Increased size of a moderate right pleural effusion which is now partly loculated along the upper and mid right pleural surface, and new loculated fluid in the right major fissure. 2. New small left pleural effusion. 3. New mild groundglass opacities in the left lung, likely due to edema. Increased dense atelectasis and consolidation in the bilateral lung bases. 4. Partly visualized indeterminate hepatic lesions, better characterized by the recent MRI. Recent Labs Lab 10/16/24 0814 10/16/24 0744 10/16/24 0118 10/15/24 2121 10/15/24 0640 10/15/24 0545 10/14/24 1138 10/14/24 1024 10/14/24 0816 10/14/24 0606 10/13/24 2047 10/13/24 1955 10/13/24 0840 10/13/24 0701 WBC -- -- -- -- -- 10.7 -- -- -- 13.5* -- -- -- 13.4* HGB -- -- -- -- -- 12.9* -- -- -- 13.4 -- -- -- 12.7* MCV -- -- -- -- -- 87 -- -- -- 86 -- -- -- 87 PLT -- -- -- -- -- 240 -- -- -- 196 -- -- -- 167 NA -- -- -- -- -- 131* -- -- -- 129* -- 126* -- 126* POTASSIUM -- -- -- -- -- 4.0 -- -- -- 4.8 -- -- -- 4.4 CHLORIDE -- -- -- -- -- 95* -- -- -- 92* -- -- -- 91* CO2 -- -- -- -- -- 23 -- -- -- 19* -- -- -- 24 BUN -- -- -- -- -- 27.6* -- -- -- 30.8* -- -- -- 24.7* CR -- 0.68 -- -- -- 0.89 -- -- -- 0.93 -- -- -- 0.80 ANIONGAP -- -- -- -- -- 13 -- -- -- 18* -- -- -- 11 LUIS -- -- -- -- -- 8.6* -- -- -- 9.0 -- -- -- 8.9 GLC 230* -- 301* 330* < > 260* < > -- < > 283* < > -- < > 318* ALBUMIN -- -- -- -- -- -- -- 2.9* -- -- -- -- -- 3.3* PROTTOTAL -- -- -- -- -- -- -- 5.8* 5.8* -- -- -- -- -- 5.9* BILITOTAL -- -- -- -- -- -- -- 0.4 -- -- -- -- -- 0.8 ALKPHOS -- -- -- -- -- -- -- 108 -- -- -- -- -- 95 ALT -- -- -- -- -- -- -- 20 -- -- -- -- -- 20 AST -- -- -- -- -- -- -- 17 -- -- -- -- -- 18 < > = values in this interval not displayed. CTOR VIDEO * Kayla Baca MD - 10/15/2024 10:15 PM CST I reviewed CT chest which was performed tonight and consult placed to IR for chest tube placement for concern for complex right pleural effusion. 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 He presented to the ED on 10/12/2024 after a fall. Of note, he had had influenza about 10 days earlier. He felt weak and had had some recurrence of left arm and leg weakness like he had with his astrocytoma. Emergency department evaluation showed hypoxia with need of oxygen at 2 L/min. Laboratory evaluation showed sodium 130, white blood cells 14.4, and negative testing for COVID/influenza/RSV. CT of head showed no acute process. CT of chest with PE protocol showed no PE. It did show right lower lung pneumonia and multiple liver lesions. Trace right pleural effusion was noted. He was started on Rocephin and Zithromax and admitted to the hospital for further cares. Antigen test for pneumococcal pneumonia and Legionella are negative. He was slow to improve. Oxygen needs increased to 5 L/min. Chest x-ray on 10/14 showed increasing right pleural effusion. He was sent for thoracentesis and only 100 mL of fluid was able to be obtained due to loculation. Pulmonary medicine was consulted. Hospital course was complicated by atrial fibrillation with rapid ventricular response with heart rate in 140s. He had some relative hypotension with systolic blood pressure of around 95. He was transferred to the ICU for close monitoring and started on amiodarone infusion. Patient spontaneously converted to sinus rhythm at about 10 AM on 10/15/2024. Problem list: Acute hypoxic respiratory failure Suspect postviral syndrome bacterial community-acquired pneumonia and right lower lung Likely right parapneumonic effusion Acute metabolic encephalopathy, likely related to above with falls -Has been slow to improve with oxygen needs rising to 5 L/min on 10/14 -Was initially treated with Rocephin and Zithromax. This was changed to Zosyn and vancomycin on 10/14 -Hypoxia persists but oxygen rate seems to be going down. Continue to wean oxygen as able -Pulmonary consult for suspected right parapneumonic effusion Atrial fibrillation with rapid ventricular response Relative hypotension Previous aortic valve replacement for aortic valve regurgitation -Converted to sinus rhythm this morning -Continue monitoring on IMC -Continue amiodarone infusion through tomorrow. 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 When he is ill he has recurrence of this weakness. He has had some recurrence of this weakness prior to presentation and during hospital stay. -Obtain MRI brain to ensure no stroke and assess for recurrent astrocytoma -Continue prior to admission Lamictal Type 1 diabetes Hyperglycemia -Normally manages with insulin pump but has not been eating well or feeling well so this was stopped during hospital stay -Increase Lantus insulin to 22 units daily which is more in line with his pump continuous rate of 0.9 units/h -Change prandial NovoLog to 1 unit for every 8 g of carbohydrates -Continue medium resistance sliding scale Hyperlipidemia -Continue prior to admission ezetimibe Liver lesions -Noted on initial CT of chest -Patient and state that they were aware of these but I cannot find previous abdominal imaging -MRI obtained on 10/14 confirmed lesions raising question of metastatic disease -May need biopsy at some point. I would favor waiting until clinically improved. He follows in the [employer] system and this can likely be done as an outpatient. Diet: Fluid restriction 1500 ML FLUID Combination Diet Moderate Consistent Carb (60 g CHO per Meal) Diet Snacks/Supplements Adult: Ensure Enlive; With Meals DVT Prophylaxis: DOAC Cai Catheter: Not present Lines: None Cardiac Monitoring: ACTIVE order. Indication: Tachyarrhythmias, acute (48 hours) Code Status: Full Code Clinically Significant Risk Factors # Hyponatremia: Lowest Na = 126 mmol/L in last 2 days, will monitor as appropriate # Hypochloremia: Lowest Cl = 92 mmol/L in last 2 days, will monitor as appropriate # Hypoalbuminemia: Lowest albumin = 2.9 g/dL at 10/14/2024 10:24 AM, will monitor as appropriate # Hypertension: Noted on problem list # DMII: A1C = N/A within past 6 months, PRESENT ON ADMISSION # Overweight: Estimated body mass index is 26.54 kg/m?? as calculated from the following: Height as of this encounter: 1.753 m (5' 9). Weight as of this encounter: 81.5 kg (179 lb 11.2 oz)., PRESENT ON ADMISSION Social Drivers of Health Physical Activity: Insufficiently Active (07/12/2023) Exercise Vital Sign Days of Exercise per Week: 3 days Minutes of Exercise per Session: 30 min Stress: Patient Declined (07/12/2023) [place] [employer] - Occupational Stress Questionnaire Feeling of Stress : Patient declined Disposition Plan Medically Ready for Discharge: Anticipated in 2-4 Days Bernardino Garcia MD Hospitalist Service [facility] Securely message with [employer] (more info) Text page via [employer] Paging/Directory Interval History Feeling a little bit better today than he did last night. Still weak. Still some cough and shortness of breath. Physical Exam Vital Signs: Temp: 98.1 ??F (36.7 ??C) Temp src: Oral BP: 119/66 Pulse: 89 Resp: 30 SpO2: (!) 91 % O2 Device: Nasal cannula Oxygen Delivery: 2 LPM Weight: 179 lbs 11.2 oz GENERAL: Comfortable. Cooperative. PSYCH: pleasant, oriented, No acute distress. EYES: PERRLA, Normal conjunctiva. HEART: Regular rate and rhythm. No JVD. Pulses normal. No edema. LUNGS: Clear to auscultation, normal Respiratory effort. ABDOMEN: Soft, no hepatosplenomegaly, normal bowel sounds. EXTREMETIES: No clubbing, cyanosis or ischemia SKIN: Dry to touch, No rash. Medical Decision Making 60 MINUTES SPENT BY ME on the date of service doing chart review, history, exam, documentation & further activities per the note. Data I have personally reviewed the following data over the past 24 hrs: 10.7 \ 12.9 (L) / 240 131 (L) 95 (L) 27.6 (H) / 293 (H) 4.0 23 0.89 \ Procal: N/A CRP: N/A Lactic Acid: 1.5 Imaging results reviewed over the past 24 hrs: Recent Results (from the past 24 hours) MR Liver wo & w Contrast Narrative EXAM: MR LIVER W/O and W CONTRAST LOCATION: [facility] DATE: 10/14/2024 INDICATION: lesions seen on CT COMPARISON: None. TECHNIQUE: Routine MRI liver protocol including T1 in/out phase, diffusion, multiplane T2, and dynamic T1 with IV contrast. CONTRAST: 9 mL Gadavist FINDINGS: LIVER: Multifocal indeterminate lesions are noted, there may be some delayed internal enhancement on 3 minute imaging. Largest individual lesion is in the posterior right lobe measuring 3.8 cm. Thesedo not have T2 characteristics of simple cysts. Liver normal in size and configuration. ADDITIONAL FINDINGS: No significant findings in the gallbladder, spleen, pancreas, kidneys, and adrenal glands. No lymphadenopathy. No ascites. Impression IMPRESSION: 1. Multifocal indeterminate lesions in the liver. These do not have T2 characteristics of simple cysts. Differential includes metastatic disease, among other considerations. Recommend biopsy of the largest lesion in the posterior right lobe of the liver. 2. Abnormal findings requiring follow-up. Recent Labs Lab 10/15/24 1151 10/15/24 0802 10/15/24 0640 10/15/24 0545 10/14/24 1138 10/14/24 1024 10/14/24 0606 [id number]/13/24 0840 10/13/24 0701 WBC -- -- -- 10.7 -- -- 13.5* -- -- -- 13.4* HGB -- -- -- 12.9* -- -- 13.4 -- -- -- 12.7* MCV -- -- -- 87 -- -- 86 -- -- -- 87 PLT -- -- -- 240 -- -- 196 -- -- -- 167 NA -- -- -- 131* -- -- 129* -- 126* -- 126* POTASSIUM -- -- -- 4.0 -- -- 4.8 -- -- -- 4.4 CHLORIDE -- -- -- 95* -- -- 92* -- -- -- 91* CO2 -- -- -- 23 -- -- 19* -- -- -- 24 BUN -- -- -- 27.6* -- -- 30.8* -- -- -- 24.7* CR -- -- -- 0.89 -- -- 0.93 -- -- -- 0.80 ANIONGAP -- -- -- 13 -- -- 18* -- -- -- 11 LUIS -- -- -- 8.6* -- -- 9.0 -- -- -- 8.9 GLC 293* 250* 229* 260* < > -- 283* < > -- < > 318* ALBUMIN -- -- -- -- -- 2.9* -- -- -- -- 3.3* PROTTOTAL -- -- -- -- -- 5.8* 5.8* -- -- -- -- 5.9* BILITOTAL -- -- -- -- -- 0.4 -- -- -- -- 0.8 ALKPHOS -- -- -- -- -- 108 -- -- -- -- 95 ALT -- -- -- -- -- 20 -- -- -- -- 20 AST -- -- -- -- -- 17 -- -- -- -- 18 < > = values in this interval not displayed. CTOR VIDEO CTOR VIDEO * Ortiz Chew MD - 10/14/2024 12:42 PM CST [facility] Medicine Progress Note - Hospitalist Service Date of Admission: 10/12/2024 Assessment & Plan Alena Rae is a 63 year old male with a history of type I diabetes, seizures, astrocytoma, BCC, h/o systolic heart failure now resolved, severe AVR s/p bioprosthetic AVR in 2019, and atrial fibrillation, anticoagulated on Eliquis admitted on 10/12/2024 after a fall in the setting of recent influenza, found to have pneumonia, started on IV antibiotics. Hypoxia has worsened Broadened antibiotic coverage Thoracentesis for increasing pleural effusion Acute hypoxic respiratory failure Post viral/secondary bacterial PNA Likely loculated parapneumonic effusion Acute metabolic encephalopathy, likely related to above with falls - had influenza about 10 days ago - CT chest: large consolidation at the right lung base with bilateral patchy airspace opacity within the lower lobes concerning for pneumonia -CT head with no intracranial hemorrhage or changes to explain symptoms, mentation improving on 10/13 - repeat CXR 10/14: showed enlarging pleural effusion - s/p thoracentesis today (10/14): only 100cc out, likely loculated, sent for culture, etc - blood cultures from 10/12 with NGTD - was started on ceftriaxone and azithromycin, broaden coverage to vanco and zosyn today - send MRSA screen (can discontinue vanco if neg) - incentive spirometry - currently requiring 5 liters via mask - S. pneumo and Legionella negative - would consult Pulm to assist next steps Hyponatremia Acute on chronic - initially felt to be hypovolemic related, appears to be acute on chronic issue (noted to have component of SIADH when admitted with COVID and had hyponatremia in 02/2022) - 129 today - urine sodium <20 and urine osm 715 Incidental findings - multiple low-attenuation lesions are noted within the liver which are indeterminant although cystor metastatic disease - patient and his state that they know about these lesions. They cannot remember what type of imaging he has had in the past. I do not see any previous CT scans or MRIs. - given his pain is in his RUQ, will assess with liver MRI Seizure disorder History of Astrocytoma with resection - [employer] lamotrigine 300 mg bid Hx of A-fib with RVR and aortic valve placement - on [employer] eliquis, carvedilol and lisinopril - troponin normal on arrival with no anginal equivalents or other concerning history Type 1 DM - insulin pump placed on hold at time of admission - lantus increased to 12u - medium sliding scale insulin and carbohydrate coverage with 1 unit per 10 grams of carbohydrate - can resume insulin pump once stable and eating normally HLP - [employer] ezetimibe is in the room and updated Diet: Combination Diet Regular Diet Adult; Moderate Consistent Carb (60 g CHO per Meal) Diet Fluid restriction 1500 ML FLUID DVT Prophylaxis: DOAC Cai Catheter: Not present Lines: None Cardiac Monitoring: ACTIVE order. Indication: Electrolyte Imbalance (24 hours)- Magnesium <1.3 mg/ml; Potassium < =2.8 or > 5.5 mg/ml Code Status: Full Code Clinically Significant Risk Factors # Hyponatremia: Lowest Na = 126 mmol/L in last 2 days, will monitor as appropriate # Hypochloremia: Lowest Cl = 91 mmol/L in last 2 days, will monitor as appropriate # Hypoalbuminemia: Lowest albumin = 3.3 g/dL at 10/13/2024 7:01 AM, will monitor as appropriate # Hypertension: Noted on problem list # DMII: A1C = N/A within past 6 months, PRESENT ON ADMISSION Social Drivers of Health Physical Activity: Insufficiently Active (07/12/2023) Exercise Vital Sign Days of Exercise per Week: 3 days Minutes of Exercise per Session: 30 min Stress: Patient Declined (07/12/2023) [place] [employer] - Occupational Stress Questionnaire Feeling of Stress : Patient declined Disposition Plan Medically Ready for Discharge: Anticipated in 2-4 Days The patient's care was discussed with the Bedside Nurse and Patient. Ortiz Chew MD Hospitalist Service [facility] Securely message with [employer] (more info) Text page via [facility] Paging/Directory Interval History I assumed care of the patient today. He just arrived back on the floor after his thoracentesis. He states he was feeling a little bit better this morning. Still having shortness of breath. He still has right lower chest/upper abdominal pain. He is eating and drinking. Physical Exam Vital Signs: Temp: 98.1 ??F (36.7 ??C) Temp src: Oral BP: 121/68 Pulse: 88 Resp: 14 SpO2: 92 % O2 Device: Oxymask Oxygen Delivery: 5 LPM Weight: 193 lbs 1.97 oz General Appearance: Appears ill, interactive, A&Ox3, NAD Respiratory: decreased breath sounds in right lower lung, no wheezing or rales Cardiovascular: RRR without murmur or rub GI: soft, nontender, nondistended, normoactive bowel sounds Skin: warm, dry Medical Decision Making 60 MINUTES SPENT BY ME on the date of service doing chart review, history, exam, documentation & further activities per the note. Data PAST 24 HR DATA REVIEWED CTOR VIDEO * Carla Bear RN - 10/14/2024 11:11 AM CST Right thoracentesis completed per Dr. Dent for 100 ml clear yellow fluid, patient tolerated well. Fluid to lab for diagnostics as ordered. Patient transferred to room via cart in stable condition. CTOR VIDEO * Horacio Galan MD - 10/14/2024 2:54 AM CST Cross cover notified that patient is having increasing hypoxia. O2 sats 85-87 percent despite increasing supplemental oxygen from 2 L up to 4 L. Did not tolerate CPAP attempt tonight. Reviewed. Here with respiratory failure due to bilateral pneumonia with recent influenza A diagnosis on 10/05. Currently on ceftriaxone and azithromycin day 3. Had a low-grade fever earlier in the evening and still has a leukocytosis. Currently on NS at 75 mL/h. Net positive on ins and O's, but not sure how accurate this is. Only have a weight on admission with nothing since then. CT chest ruled out PE, but does show large consolidation at the right lung base in addition to the bilateral patchy opacities so is not surprising he has some ongoing hypoxia. With presenting encephalopathy I do suspect aspiration is possible. Recent TTE showed grade 1 diastolic dysfunction, but no history of symptomatic heart failure. Previous aortic valve replacement and A-fib and is on Eliquis. -Stop the continuous IV fluids -Obtain stat chest x-ray -Changed to NC to oximask and increase supplemental O2 as needed. If not improving may need to trial HFNC. Addendum: Chest x-ray showed a likely new moderate right sided pleural effusion in addition to the known previous bilateral infiltrates. Possible parapneumonic effusion. Has been receiving IV fluids for hyponatremia that based on urine studies is consistent with SIADH. -Already stopped the IV NS infusion -Give 20 mg IV Lasix -If worsening respiratory status may need thoracentesis during the day CTOR VIDEO CTOR VIDEO * Arielle Sewell RT - 10/14/2024 1:11 AM CST Pt set up on hospital CPAP. RT Júnior CTOR VIDEO * Horacio Galan MD - 10/14/2024 12:07 AM CST Glucose 349. Reviewed chart. Give additional 6 units aspart. CTOR VIDEO * Tiarra Smalls PA-C - 10/13/2024 3:29 PM CST [facility] Medicine Progress Note - Hospitalist Service Date of Admission: 10/12/2024 Assessment & Plan Alena Rae is a 63 year old male with a history of type I diabetes, seizures, astrocytoma, BCC, h/o systolic heart failure now resolved, severe AVR s/p bioprosthetic AVR in 2019, and atrial fibrillation, anticoagulated on Eliquis admitted on 10/12/2024 after a fall in the setting of illness over the course of 10 days now, found to have pneumonia, started on IV antibiotics. Acute hypoxic respiratory failure 2/2 bilateral pneumonia, bilateral lower lobes (suspect post viral pneumonia) Leukocytosis, likely related to above, improving Acute metabolic encephalopathy, likely related to above with falls Patient reporting that he started feeling ill about 10 days ago. Reports cough cold and flulike symptoms. He reports testing positive for influenza A on 10/05. His symptoms seem to worsen and he had suffered from a couple falls the night prior to admission. This prompted their visit to the emergencydepartment where vitals were stable on arrival, lab workup revealed hyponatremia as below, and CT workup was performed. He was found to have pneumonia. Suspected postviral pneumonia given timeline ofsymptoms and recently testing positive for influenza A. Patient was admitted for further monitoringand clinical improvement. -CT chest without PE, large consolidation at the right lung base with bilateral patchy airspace opacity within the lower lobes concerning for pneumonia -CT head with no intracranial hemorrhage or changes to explain symptoms, mentation improving on 10/13 -right lower chest/flank pain, issues since admission, suspect in relation to large consolidation on imaging, if not improving over next day consider reimaging, continue pain control and limit narcotics as able -Blood cultures from 10/12 with NGTD -Continue ceftriaxone and azithromycin (day #2) -Incentive spirometry -Continue pulse ox with oxygen as needed, currently requiring 2 liters via NC -S. pneumo and Legionella negative -WBC improving on recheck but not resolved, follow CBC Hyponatremia -initially felt to be hypovolemic related, appears to be acute on chronic issue (noted to have component of SIADH when admitted with COVID and had hyponatremia in 02/2022) -sodium initially 126 -> 130 ->127 -> 126 (downward trending after receiving IVFs) -add on urine sodium, osmolality, and urine osmolality to assess for SIADH -check sodium this evening -give IVFs with NS at 75 ml/hour -fluid restriction of 2 liters for now, further restrict if needed pending additional workup Incidental findings Multiple low-attenuation lesions are noted within the liver which are indeterminant although cyst or metastatic disease -Outpatient workup is suggested. Will refer on discharge Seizure disorder -[employer] lamotrigine 300 mg bid Hx of A-fib with RVR and aortic valve placement - on [employer] eliquis, carvedilol and lisinopril - Troponin normal on arrival with no anginal equivalents or other concerning history Type 1 DM -insulin pump placed on hold at time of admission -BG consistently in the 300s even with minimal PO intake -Lantus ordered overnight, increase to 12 units -medium sliding scale insulin and carbohydrate coverage with 1 unit per 10 grams of carbohydrate -once PO improves then consider when appropriate to resume [employer] insulin pump HLP -[employer] ezetimibe Diet: Combination Diet Regular Diet Adult; Moderate Consistent Carb (60 g CHO per Meal) Diet DVT Prophylaxis: DOAC Cai Catheter: Not present Lines: None Cardiac Monitoring: ACTIVE order. Indication: Electrolyte Imbalance (24 hours)- Magnesium <1.3 mg/ml; Potassium < =2.8 or > 5.5 mg/ml Code Status: Full Code Clinically Significant Risk Factors # Hyponatremia: Lowest Na = 126 mmol/L in last 2 days, will monitor as appropriate # Hypochloremia: Lowest Cl = 90 mmol/L in last 2 days, will monitor as appropriate # Hypoalbuminemia: Lowest albumin = 3.3 g/dL at 10/13/2024 7:01 AM, will monitor as appropriate # Hypertension: Noted on problem list # DMII: A1C = N/A within past 6 months, PRESENT ON ADMISSION Social Drivers of Health Physical Activity: Insufficiently Active (07/12/2023) Exercise Vital Sign Days of Exercise per Week: 3 days Minutes of Exercise per Session: 30 min Stress: Patient Declined (07/12/2023) [place] [employer] - Occupational Stress Questionnaire Feeling of Stress : Patient declined Disposition Plan Medically Ready for Discharge: Anticipated in 2-4 Days The patient's care was discussed with the Bedside Nurse and Patient. Tiarra Smalls PA-C Hospitalist [facility] Securely message with [employer] (more info) Text page via [facility] Paging/Directory Interval History Patient appears uncomfortable and reports this is due to ongoing right lower chest pain that warps around to his flank. Patient reports his confusion seems better today. He notes intermittent discomfort in the center of his chest. Notes a mild cough and congestion. Denies wheezing. He feels extremely weak. Last bowel movement was last Sunday but does not feel constipated. He states he was diagnosed 8 days ago with influenza A at urgent care. Physical Exam Vital Signs: Temp: 97.5 ??F (36.4 ??C) Temp src: Oral BP: 110/71 Pulse: 86 Resp: 14 SpO2: 93 % O2 Device: Nasal cannula Oxygen Delivery: 2 LPM Weight: 193 lbs 1.97 oz General Appearance: Appears ill, interactive, A&Ox3, NAD Respiratory: decreased breath sounds in right lower lung, no wheezing or rales Cardiovascular: RRR without murmur or rub GI: soft, nontender, nondistended, normoactive bowel sounds Skin: warm, dry Medical Decision Making 60 MINUTES SPENT BY ME on the date of service doing chart review, history, exam, documentation & further activities per the note. Data PAST 24 HR DATA REVIEWED CTOR VIDEO * Aurora Whitlock RN - 10/12/2024 9:24 PM CST ROOM # 204-2 Living Situation (if not independent, order SW consult): home Facility name: personnel training officer: Activity level at baseline: independent Activity level on admit: assistive of 1 Who will be transporting you at discharge: Patient registered to observation; given Patient Bill of Rights; given the opportunity to ask questions about observation status and their plan of care. Patient has been oriented to the observation room, bathroom and call light is in place. Discussed discharge goals and expectations with patient/family. CTOR VIDEO * Chastity Patino MD - 10/12/2024 8:37 PM CST Lantus 5 units and aspart 2 units ordered for hyperglycemia Patient has turned off his insulin pump CTOR VIDEO * Indu Harris RN - 10/12/2024 6:49 PM CST [facility] ED Boarding Nurse Handoff Addendum Report: Date/time: 10/12/2024, 6:49 PM Activity Level: assist of 2 Fall Risk: Yes: bed/chair alarm on, nonskid shoes/slippers when out of bed, arm band in place, patient and family education, assistive device/personal items within reach, and activity supervised Active Infusions: None Current Meds Due: See MAR Current care needs: Monitor Na, Phos and Mg+. Blood culture pending. Abx ceftriaxone and azithromycin. Continue pulse ox with oxygen as needed. Monitor glucose. Oxygen requirements (liters/min and/or FiO2): 2 LPM Respiratory status: Nasal cannula Vital signs (within last 30 minutes): Vitals: 10/12/24 1600 10/12/24 1645 10/12/24 1700 10/12/24 1840 BP: 119/71 134/82 129/72 Pulse: 84 91 95 89 Resp: 20 26 Temp: 98.8 ??F (37.1 ??C) TempSrc: Oral SpO2: 95% 92% 92% 95% Weight: Focused assessment within last 30 minutes: A&Px4. VSS. O2 Sat 94% on oxygen. C/o R flank pain radiating to his abdomen and back. PRN Tylenol and oxycodone 5 mg given. On Combination Diet Regular Diet Adult; Moderate Consistent Carb. ED Boarding Nurse name: Indu Harris RN CTOR VIDEO documented in this encounter H&P Notes * Arielle Martel, - 10/12/2024 12:55 PM CSTFormatting of this note is different from the [facility] History and Physical - Hospitalist Service Date of Admission: 10/12/2024 Assessment & Plan Mr. Alena Rae is a 63 year old male with a history of type I diabetes, seizures, astrocytoma, BCC, chronic systolic heart failure, and atrial fibrillation, anticoagulated on Eliquis admitted on 10/12/2024 after a fall in the setting of illness over the course of 10 days now, found to have pneumonia, started on IV antibiotics. Pending clinical improvement. Acute hypoxic respiratory insufficiency 2/2 bilateral pneumonia, bilateral lower lobes (suspect post viral pneumonia) Leukocytosis, likely related to above Acute metabolic encephalopathy, likely related to above with falls Patient reporting that he started feeling ill about 10 days ago. Reports cough cold and flulike symptoms. The seem to worsen and he had suffered from a couple falls the night prior to admission. Thisprompted their visit to the emergency department where vitals were stable on arrival, lab workup revealed hyponatremia as below, and CT workup was performed. He was found to have pneumonia. Suspected postviral pneumonia given timeline of symptoms. Patient was admitted for further monitoring and clinical improvement. -CT chest without PE, large consolidation at the right lung base with bilateral patchy airspace opacity within the lower lobes concerning for pneumonia -CT head with no intracranial hemorrhage or changes to explain symptoms -Blood cultures pending -Ccontinue ceftriaxone and azithromycin -Incentive spirometry -Continue pulse ox with oxygen as needed -Given hyponatremia will check for S. pneumo and Legionella Hyponatremia, suspect hypovolemic -Status post IV fluids in the ED -Repeat sodium pending - goal correction 8-12 / 24 hours -BMP in a.m. -CT head Incidental findings Multiple low-attenuation lesions are noted within the liver which are indeterminant although cyst or metastatic disease -Outpatient workup is suggested. Will refer on discharge Seizures -MANAGER OF SOFTWARE lamotrigine 300 mg bid Hx of A-fib with RVR and aortic valve placement - on MANAGER OF SOFTWARE eliquis, carvedilol and lisinopril - Troponin normal on arrival with no anginal equivalents or other concerning history Type 1 DM -Patient's prefers to discontinue insulin pump as patient is dropping quickly and she is worried -They prefer to do a sliding scale insulin while inpatient and patient is not tolerating p.o. -I have ordered a sliding scale insulin in addition to consultation with pharmacy to assist with management HLP -MANAGER OF SOFTWARE ezetimibe Diet: Combination Diet Regular Diet Adult; Moderate Consistent Carb (60 g CHO per Meal) Diet DVT Prophylaxis: Pneumatic Compression Devices + on DOAC Cai Catheter: Not present Lines: None Cardiac Monitoring: ACTIVE order. Indication: Electrolyte Imbalance (24 hours)- Magnesium <1.3 mg/ml; Potassium < =2.8 or > 5.5 mg/ml Code Status: Full Code Clinically Significant Risk Factors Present on Admission # Hyponatremia: Lowest Na = 126 mmol/L in last 2 days, will monitor as appropriate # Hypochloremia: Lowest Cl = 90 mmol/L in last 2 days, will monitor as appropriate # Drug Induced Coagulation Defect: home medication list includes an anticoagulant medication # Hypertension: Noted on problem list # DMII: A1C = N/A within past 6 months Disposition Plan Medically Ready for Discharge: Anticipated in 2-4 Days Arielle Martel DO Hospitalist Service [facility] Securely message with [employer] (more info) Text page via [employer] Paging/Directory Chief Complaint Fall and rib pain History is obtained from the patient, electronic health record, emergency department physician, andpatient's spouse History of Present Illness Mr. Alena Rae is a 63 year old male with a history of type I diabetes, seizures, astrocytoma, BCC, chronic systolic heart failure, and atrial fibrillation, anticoagulated on Eliquis admitted on 10/12/2024 after a fall in the setting of illness over the course of 10 days now, found to have pneumonia, started on IV antibiotics. The patient's reports Alena fell last night (10/11/24) due to RLQ abdominal pain that is worsened with ambulation and began the night of 10/10/24. He also endorses neck pain at baseline and his reports they were sick 10/09/24 and he never seemed to get any better. He denies any loss of consciousness, dysuria, increased urinary frequency/urgency, hematuria, history of blood clots, oxygen use at baseline, or missed Eliquis doses. Patient reports no other new concerns or complaints. Historyis limited secondary to fatigue, but patient's assist with history. Past Medical History Past Medical History: Diagnosis [...] 11/21/2016 Paroxysmal atrial fibrillation (H) Seizures (H) Past Surgical History Past Surgical History: Procedure Laterality Date APPENDECTOMY 1998 BIOPSY 2021 Basal cell carcinoma, Mohs surgery performed BRAIN SURGERY x2 COLONOSCOPY 2012 Polyps removed COLONOSCOPY N/A 05/14/2023 Procedure: Colonoscopy with polypectomy using jumbo forcep; Surgeon: Jazmyn Lord MD; Location: GI CV CORONARY ANGIOGRAM N/A 06/18/2019 Procedure: CV Coronary Angiogram; Surgeon: Juan Wu MD; Location: HEART CARDIAC CENTRAL SERVICES TECH EYE SURGERY Lasik REPLACE VALVE AORTIC N/A 07/04/2019 Procedure: AORTIC VALVE REPLACEMENT WITH VALVE AORTIC PERIMOUNT MAGNA-EASE BIOPROSTH SIZE: 23MM ON PUMP OXYGENATOR AND CARLOS EDUARDO BY HALEY; Surgeon: Ej Haines MD; Location: OR TONSILLECTOMY UVULECTOMY 1993 Prior to Admission Medications Prior to Admission Medications Prescriptions Last Dose Informant Patient Reported? Taking? Continuous Glucose Sensor (DEXCOM G7 SENSOR) MISC No Yes Sig: Change every 10 days. INSULIN PUMP - OUTPATIENT 10/12/2024 Yes Yes Sig: Inject subcutaneously. Date Last Updated: 10/12/24 Omnipod BASAL RATES and times: Continuous (: 0.9 units/hour CARB RATIO and times: 5644-3080: 1 unit for 10g of carbohydrates Corection Factor (Sensitivity) and times: 6197-8386: 1 unit lowers BG by 40 mg/dL BLOOD GLUCOSE TARGET and times: 110 - 120 mg/dL Active Insulin Time: 2.5 hours Sensor: Yes: lower limit = 70 mg/dL, upper limit = 180 mg/dL Changes pump q3d Insulin Disposable Pump (OMNIPOD 5 G7 PODS, GEN 5,) MISC No Yes Si pod See Admin Instructions. Change every 3 days LAMOTRIGINE PO 10/12/2024 Morning Yes Yes Sig: Take 300 mg by mouth 2 times daily Melatonin 10 MG TABS tablet 10/11/2024 Bedtime Yes Yes Sig: Take 10 mg by mouth at bedtime. Multiple Vitamins-Minerals (MENS MULTI VITAMIN & MINERAL PO) 10/12/2024 Morning Self Yes Yes Sig: Take 1 tablet by mouth daily Psyllium (METAMUCIL FIBER PO) 10/12/2024 Morning Yes Yes Sig: Take 1 Dose by mouth daily. acetone urine (KETOSTIX) test strip No No Sig: Use to check urine ketones in the event of pump failure or unexplained blood glucoses over 250and not resolving. apixaban ANTICOAGULANT (ELIQUIS ANTICOAGULANT) 5 MG tablet 10/12/2024 Morning Yes Yes Sig: Take 1 tablet (5 mg) by mouth 2 times daily. Discontinue when bottle is completed and start ASA carvedilol (COREG) 12.5 MG tablet 10/12/2024 Morning No Yes Sig: Take 1 tablet (12.5 mg) by mouth 2 times daily (with meals) cholecalciferol (VITAMIN D3) 125 mcg (5000 units) capsule 10/12/2024 Morning Yes Yes Sig: Take 125 mcg by mouth daily. ezetimibe (ZETIA) 10 MG tablet 10/11/2024 Evening Yes Yes Sig: Take 10 mg by mouth every evening. insulin aspart (NOVOLOG VIAL) 100 UNITS/ML vial No Yes Sig: Uses about 80 units per day insulin glargine (LANTUS PEN) 100 UNIT/ML pen Unknown No Yes Si units if pod fails insulin syringe-needle U-100 (30G X 1/2 0.3 ML) 30G X 1/2 0.3 ML miscellaneous No Yes Sig: Use in the event of pump failure and need to administer manual injection. lisinopril (ZESTRIL) 30 MG tablet 10/11/2024 Morning No Yes Sig: Take 1 tablet (30 mg) by mouth daily. metFORMIN (GLUCOPHAGE) 500 MG tablet 10/11/2024 Evening No Yes Sig: Take 1 tablet (500 mg) by mouth daily (with dinner) modafinil (PROVIGIL) 200 MG tablet Unknown No Yes Sig: Take 0.5-1 tablets (100-200 mg) by mouth daily as needed (daytime sleepiness) sildenafil (VIAGRA) 100 MG tablet Unknown No Yes Sig: Take 1 tablet (100 mg) by mouth daily as needed (30 minutes prior to sexual activity) tiZANidine (ZANAFLEX) 2 MG tablet Unknown Yes Yes Sig: TAKE 1-2 TABLETS BY MOUTH EVERY NIGHT AT BEDTIME NEEDED DIRECTED FOR LOW BACK PAIN* vitamin C (ASCORBIC ACID) 1000 MG TABS 10/12/2024 Morning Yes Yes Sig: Take 1 tablet by mouth daily zinc gluconate 50 MG tablet 10/12/2024 Morning Yes Yes Sig: Take 50 mg by mouth daily Facility-Administered Medications: None Physical Exam Vital Signs: Temp: 99.4 ??F (37.4 ??C) Temp src: Oral BP: 116/67 Pulse: 80 Resp: 22 SpO2: 97 % O2 Device: Nasal cannula Oxygen Delivery: 2 LPM Weight: 193 lbs 1.97 oz Constitutional: cooperative, ill-appearing but in no apparent distress, and appears stated age HEENT: Normocephalic, atraumatic Respiratory: Increased work of breathing, fair air exchange, coarse to auscultation bilaterally with crackles but no wheezing Cardiovascular: Regular rate and rhythm, no murmurs appreciated GI: Soft and nontender to palpation, nondistended, no rebound or guarding Skin: normal skin color, texture, turgor Musculoskeletal: No deformities, no edema present Neurologic: Alert and oriented, no focal deficits Neuropsychiatric: General: normal, calm and normal eye contact Medical Decision Making 75 MINUTES SPENT BY ME on the date of service doing chart review, history, exam, documentation & further activities per the note. Data PAST 24 HR DATA REVIEWED I have personally reviewed the following data over the past 24 hrs: 14.4 (H) \ 14.6 / 180 126 (L) 90 (L) 22.1 / 223 (H) 4.5 26 1.1 \ ALT: 22 AST: 15 AP: 93 TBILI: 1.4 (H) ALB: 3.9 TOT PROTEIN: 6.4 LIPASE: N/A Trop: 14 BNP: N/A Procal: N/A CRP: N/A Lactic Acid: 1.1 Imaging results reviewed over the past 24 hrs: Recent Results (from the past 24 hours) CT Head w/o Contrast Narrative EXAM: CT HEAD W/O CONTRAST LOCATION: [facility] DATE: 10/12/2024 INDICATION: Fall, on eliquis, eval for ICH COMPARISON: Head CT 03/10/2022 TECHNIQUE: Routine CT Head without IV contrast. Multiplanar reformats. Dose reduction techniques were used. FINDINGS: INTRACRANIAL CONTENTS: No intracranial hemorrhage. Mild diffuse cerebral parenchymal volume loss. No midline shift. The basilar cisterns are patent. Moderate area of encephalomalacia involving the anterior parasagittal right frontal lobe. There is associated mild ex vacuo dilatation of the anterior horn of the right lateral ventricle. Small focus of encephalomalacia involving the anterior parasagittal left frontal lobe. Small chronic infarct in the left cingulate gyrus. Mild periventricular and scattered foci of deep white matter hypodensities involving both cerebral hemispheres. No CT evidence for an acute infarct. VISUALIZED ORBITS/SINUSES/MASTOIDS: No intraorbital abnormality. Mild mucosal thickening of the ethmoid air cells. No middle ear or mastoid effusion. BONES/SOFT TISSUES: Right frontal craniotomy changes. Impression IMPRESSION: 1. No intracranial hemorrhage, mass lesions, hydrocephalus or CT evidence for an acute infarct. 2. Mild diffuse cerebral parenchymal volume loss. Presumed chronic hypertensive/microvascular ischemic white matter changes. 3. Moderate area of encephalomalacia involving the anterior parasagittal right frontal lobe. There is associated mild ex vacuo dilatation of the anterior horn of the right lateral ventricle. Small focus of encephalomalacia involving the anterior parasagittal left frontal lobe. Small chronic infarct in the left cingulate gyrus. CT Chest (PE) Abdomen Pelvis w Contrast Narrative EXAM: CT CHEST PE ABDOMEN PELVIS W CONTRAST LOCATION: [facility] DATE: 10/12/2024 INDICATION: Right inferior chest wall pain, RUQ abd pain, concern for PE vs rib fractures vs PNA vscholecystitis vs septic etiolgies COMPARISON: None. TECHNIQUE: CT chest pulmonary angiogram and routine CT abdomen pelvis with IV contrast. Arterial phase through the chest and venous phase through the abdomen and pelvis. Multiplanar reformats and MIPreconstructions were performed. Dose reduction techniques were used. [...] bilaterally. Bronchial wall thickening predominantly at the lungbases. MEDIASTINUM/AXILLAE: Heart is moderately enlarged. No mediastinal, axillary, or hilar adenopathy. CORONARY ARTERY CALCIFICATION: Moderate. HEPATOBILIARY: 4 x 3.3 cm ill-defined low-attenuation mass within segment 7 of the liver. 3.2 x 2.2cm mass noted within the caudate. 1.6 x [...] pelvis. MUSCULOSKELETAL: Degenerative changes of the spine. Impression IMPRESSION: 1. No pulmonary embolism. 2. Large consolidation at the right lung base with bilateral patchy airspace opacity within the lower lobes concerning for pneumonia. 3. Multiple low-attenuation lesions are noted within the liver which are indeterminant although cyst or metastatic disease. Further workup is suggested. CTOR VIDEO CTOR VIDEO documented in this encounter Consult Notes * Tova Alberts LICSW - 10/28/2024 2:23 PM CDT Care Management Discharge Note Discharge Date: 10/29/2024 Discharge Disposition: ARU tomorrow 12/29/24 Discharge Services: ARU for rehab. Discharge DME: ARU will provide Discharge Transportation: family or friend will provide they will be transport at [phone] on Sun.10/29/24 Private pay costs discussed: private room/amenity fees and transportation costs Does the patient's insurance plan have a 3 day qualifying hospital stay waiver? No PAS Confirmation Code: NA Patient/family educated on Medicare website which has current facility and service quality ratings:yes Education Provided on the Discharge Plan: yes Persons Notified of Discharge Plans: , patient and unit Patient/Family in Agreement with the Plan: yes Handoff Referral Completed: No, handoff not indicated or clinically appropriate Additional Information: Patient has been accepted at [facility]U and they were able to get insurance authorization. Updated the and patient. will transport between [phone] tomorrow 10/29/24 . Updated the unit and RN. HERMAN Duran SW Preconstruction Manager Inpatient Care Coordination Glass Crusher Corporate Training Manager [facility] [phone] HERMAN Nicholson * Anel Long NP - 10/27/2024 10:41 AM CDTAssociated Order(s): NEUROLOGY IP STROKE CONSULT Images from the original note were not included. [facility] Stroke Consult Note Reason for Consult: abnormal brain MRI (? ischemia) in patient with hx of astrocytoma. planning to discharge to ARU, and ARU requesting neuro assessment prior to transfer Chief Complaint: Shortness of Breath and Fall HPI Alena Rae is a 63 year old right handed male with PMHx significant for basilar artery stenosis, carotid artery stenosis, sleep apnea, seizures, tremor, bioprosthetic AVR, HTN, astrocytoma s/presection, paroxysmal atrial fibrillation on apixaban, DM1. He was admitted 10/12/24 after a fall inthe setting of illness. He was found to have acute hypoxic respiratory failure, right sided loculated pleural effusion (felt to be parapneumonic, cytology and culture negative) s/p chest tube. MRI brain was performed for left sided weakness and it showed a right frontal diffusion restriction adjacent to the resection cavity that appears consistent with stroke. He has persistent mild LUE weakness today. He reports that he had left hemiparesis r/t his astrocytoma but that it resolved. He and his noticed it recurred after he got to the hospital. It has improved over the course of his hospitalization but not resolved. He held his eliquis for a joint injection in late August but no recent missed doses leading up to his hospitalization. Stroke Evaluation Summarized MRI/Head CT Interval development of 1 cm linear focus of restricted diffusion posterior to the right frontal resection cavity. Differential considerations include acute ischemia, posttreatment change, or recurrence. Recommend continued radiographic follow-up. Intracranial Vasculature ICAD most notably in the vertebrobasilar system including age indeterminate left vertebral artery occlusion Cervical Vasculature Moderate right vertebral artery stenosis, hypoplastic left vertebral artery Echocardiogram EF 65-70%, well seated bioprosthetic valve, no regional WMA, mildly dilated ascending aorta, normal atrial sizes EKG/Telemetry SR Other Testing MR Liver: 1. Multifocal indeterminate lesions in the liver. These do not have T2 characteristics of simple cysts. Differential includes metastatic disease, among other considerations. Recommend biopsy of the largest lesion in the posterior right lobe of the liver. 2. Abnormal findings requiring follow-up. CT Chest PE/Abd/Pelvis: 1. No pulmonary embolism. 2. Large consolidation at the right lung base with bilateral patchy airspace opacity within the lower lobes concerning for pneumonia. 3. Multiple low-attenuation lesions are noted within the liver which are indeterminant although cyst or metastatic disease. Further workup is suggested. LDL 10/27/2024: 64 mg/dL A1C 10/26/2024: 7.5 % Troponin No lab value available in past 48 hrs Impression #Acute ischemic stroke of right frontal lobe possibly due to cardioembolism despite anticoagulation; some concern for hypercoagulability of malignancy given liver lesions although these have been reportedly stable for many years #Intracranial atherosclerotic disease (ICAD) #Paroxysmal atrial fibrillation on apixaban #Liver lesions Recommendations - normotension, avoid hypotension in the setting of ICAD - continue MANAGER OF SOFTWARE apixaban 5 mg BID - continue ezetimibe 10 mg daily; consider statin therapy in the setting of ICAD; senior care LDL goal 40-70 - Telemetry - Pt and report that cardiology previously suggested that pt could transition off of apixaban to aspirin. Given his pAF while admitted, would not recommend doing that at this time. Will order ziopatch for after rehab to measure afib burden for future planning. Alternatively, could consider loop recorder placement. - Bedside Glucose Monitoring - HGBA1C goal < 7.0 - Nutrition: Mediterranean diet recommended - PT/OT/SHOT COAT TENDER, discharging to acute rehab - Stroke Education - Depression Screen - Apnea screening questions - Euthermia, Euglycemia - continue MANAGER OF SOFTWARE lamotrigine 300 mg BID for seizure ppx Patient Follow-up - in the next 1-2 week(s) with PCP - in 6-8 weeks with general neurology or stroke HAYDE ([phone]), ordered - with PCP regarding further work up of liver lesions Thank you for this consult. No further stroke evaluation is recommended, so we will sign off. Please contact us with any additional questions. Anel Long NP Vascular Neurology To page me or covering stroke neurology steam box operator, click here: [employer] Choose Natural Resources Specialist tab at top, then select NEUROLOGY/ALL SITES from middle drop- down box, press Enter, then look for stroke or telestroke for your site. Clinically Significant Risk Factors # Hypoalbuminemia: Lowest albumin = 2.9 g/dL at 10/14/2024 10:24 AM, will monitor as appropriate # Hypertension: Noted on problem list # DMII: A1C = 7.5 % (Ref range: <5.7 %) within past 6 months # Overweight: Estimated body mass index is 28.55 kg/m?? as calculated from the following: Height as of this encounter: 1.753 m (5' 9). Weight as of this encounter: 87.7 kg (193 lb 5.5 oz). Past Medical History Past Medical History: Diagnosis [...] 11/21/2016 Paroxysmal atrial fibrillation (H) Seizures (H) Medications Home Meds Prior to Admission medications Medication Sig Start Date End Date Taking? Authorizing Provider acetaminophen (TYLENOL) 325 MG tablet Take 2 tablets (650 mg) by mouth every 4 hours as needed for mild pain or other (and adjunct with moderate or severe pain or per patient request). 10/26/24 Yes Wilber Torres MD amiodarone (PACERONE) 200 MG tablet Take 1 tablet (200 mg) by mouth daily for 14 days. 10/26/24 11/09/24 Yes Wilber Torres MD apixaban ANTICOAGULANT (ELIQUIS ANTICOAGULANT) 5 MG tablet Take 1 tablet (5 mg) by mouth 2 times daily. Discontinue when bottle is completed and start ASA 07/29/24 Yes Junior Chavira MD cholecalciferol (VITAMIN D3) 125 mcg (5000 units) capsule Take 125 mcg by mouth daily. Yes Unknown,Entered By History Continuous Glucose Sensor (DEXCOM G7 SENSOR) MISC Change every 10 days. 05/30/24 Yes Stephie Mahoney MD ezetimibe (ZETIA) 10 MG tablet Take 10 mg by mouth every evening. Yes Unknown, Entered By History insulin aspart (NOVOLOG FLEXPEN) 100 UNIT/ML pen 1 units per 15 gram carb unit before breakfast, lunch and dinner 10/26/24 Yes Wilber Torres MD insulin aspart (NOVOLOG FLEXPEN) 100 UNIT/ML pen For Pre-Meal BG 140 - 189 give 1 unit. For Pre-Meal BG 190 - 239 give 2 units. For Pre-Meal BG 240 - 289 give 3 units. For Pre-Meal BG 290 - 339 give 4 units. For Pre-Meal BG 340- 389 give 5 units. For Pre-Meal BG 390-439 give 6 units For Pre-Meal BGgreater than or equal to 440 give 7 units. For BEDTIME: For BG 200 - 249 give 1 unit. For BG 250 - 299 give 2 units. For BG 300 - 349 give 3 units. For BG 350 - 399 give 4 units. For BG greater than or equal to 400 give 5 units. 10/26/24 Yes Wilber Torres MD Insulin Disposable Pump (OMNIPOD 5 G7 PODS, GEN 5,) MISC 1 pod See Admin Instructions. Change every3 days 06/02/24 Yes Stephie Mahoney MD insulin glargine (LANTUS PEN) 100 UNIT/ML pen Inject 30 Units subcutaneously at bedtime. 10/26/24 YesWilber Torres MD INSULIN PUMP - OUTPATIENT Inject subcutaneously. Date Last Updated: 10/12/24 Omnipod BASAL RATES and times: Continuous (6693-7176: 0.9 units/hour CARB RATIO and times: 5980-6520: 1 unit for 10g of carbohydrates Corection Factor (Sensitivity) and times: 4982-2421: 1 unit lowers BG by 40 mg/dL BLOOD GLUCOSE TARGET and times: 110 - 120 mg/dL Active Insulin Time: 2.5 hours Sensor: Yes: lower limit = 70 mg/dL, upper limit = 180 mg/dL Changes pump q3d Yes Unknown, Entered By History insulin syringe-needle U-100 (30G X 1/2 0.3 ML) 30G X 1/2 0.3 ML miscellaneous Use in the event of pump failure and need to administer manual injection. 07/27/21 Yes Stephie Mahoney MD LAMOTRIGINE PO Take 300 mg by mouth 2 times daily 06/21/21 Yes Reported, Patient lisinopril (ZESTRIL) 30 MG tablet Take 1 tablet (30 mg) by mouth daily. 06/16/24 Yes Shantel Walker MD Melatonin 10 MG TABS tablet Take 10 mg by mouth at bedtime. 01/19/20 Yes Reported, Patient metFORMIN (GLUCOPHAGE) 500 MG tablet Take 1 tablet (500 mg) by mouth daily (with dinner) 11/23/23 YesStephie Mahoney MD metoprolol succinate ER (TOPROL XL) 50 MG 24 hr tablet Take 1 tablet (50 mg) by mouth 2 times daily. 10/26/24 Yes Wilber Torres MD Multiple Vitamins-Minerals (MENS MULTI VITAMIN & MINERAL PO) Take 1 tablet by mouth daily Yes Reported, Patient oxyCODONE (ROXICODONE) 5 MG tablet Take 1 tablet (5 mg) by mouth every 4 hours as needed for severepain. 10/26/24 Yes Wilber Torres MD Psyllium (METAMUCIL FIBER PO) Take 1 Dose by mouth daily. Yes Reported, Patient senna-docusate (SENOKOT-S/PERICOLACE) 8.6-50 MG tablet Take 1 tablet by mouth 2 times daily as needed for constipation. 10/26/24 Yes Wilber Torres MD sildenafil (VIAGRA) 100 MG tablet Take 1 tablet (100 mg) by mouth daily as needed (30 minutes priorto sexual activity) 07/19/23 Yes Maisha Martinez NP tiZANidine (ZANAFLEX) 2 MG tablet TAKE 1-2 TABLETS BY MOUTH EVERY NIGHT AT BEDTIME NEEDED DIRECTED FOR LOW BACK PAIN* 03/13/24 Yes Reported, Patient vitamin C (ASCORBIC ACID) 1000 MG TABS Take 1 tablet by mouth daily 08/20/20 Yes Reported, Patient zinc gluconate 50 MG tablet Take 50 mg by mouth daily 01/19/20 Yes Reported, Patient acetone urine (KETOSTIX) test strip Use to check urine ketones in the event of pump failure or unexplained blood glucoses over 250 and not resolving. 08/21/22 Stephie Mahoney MD Scheduled Meds Current Facility-Administered Medications Medication Dose Route Frequency Provider Last Rate Last Admin amiodarone (PACERONE) tablet 200 mg 200 mg Oral BID Chris Suarez MD 200 mg at 10/27/24 0525 apixaban ANTICOAGULANT (ELIQUIS) tablet 5 mg 5 mg Oral BID Wilber Torres MD 5 mg at 10/27/24 0900 atorvastatin (LIPITOR) tablet 40 mg 40 mg Oral QPM Wilber Torres MD diclofenac (VOLTAREN) 1 % topical gel 2 g 2 g Topical 4x Daily Bernardino Garcia MD 2 g at 10/27/24 0902 ezetimibe (ZETIA) tablet 10 mg 10 mg Oral QPM Bernardino Garcia MD 10 mg at 10/26/24 1915 guaiFENesin (MUCINEX) 12 hr tablet 600 mg 600 mg Oral BID Bernardino Garcia MD 600 mg at 10/27/24 0900 insulin aspart (NovoLOG) injection (RAPID ACTING) 1-10 Units Subcutaneous TID AC Chris Suarez MD 4 Units at 10/26/24 1801 insulin aspart (NovoLOG) injection (RAPID ACTING) 1-7 Units Subcutaneous At Bedtime Chris Suarez MD 2 Units at 10/26/24 210 insulin aspart (NovoLOG) injection (RAPID ACTING) Subcutaneous TID w/meals Chris Suarez MD 20 Units at 10/27/24 1117 insulin glargine (LANTUS PEN) injection 30 Units 30 Units Subcutaneous At Bedtime Chris Suarez MD 30 Units at 10/26/24 210 lamoTRIgine (LaMICtal) tablet 300 mg 300 mg Oral BID Bernardino Garcia MD 300 mg at 10/27/24 0900 Lidocaine (LIDOCARE) 4 % Patch 1 patch 1 patch Transdermal Q24H Bernardino Garcia MD 1 patch at 10/27/24 0900 lisinopril (ZESTRIL) tablet 30 mg 30 mg Oral Daily Bernardino Garcia MD 30 mg at 10/22/24 0800 magnesium oxide (MAG-OX) tablet 400 mg 400 mg Oral Q4H Wilber Torres MD 400 mg at 10/27/24 1117 metFORMIN (GLUCOPHAGE) tablet 500 mg 500 mg Oral Daily with supper Bernardino Garcia MD 500 mg at 10/26/24 1716 metoprolol succinate ER (TOPROL XL) 24 hr tablet 50 mg 50 mg Oral BID Wilber Torres MD 50 mg at 10/27/24 0900 miconazole (MICATIN) 2 % powder Topical BID Chris Suarez MD Given at 10/27/24 0901 multivitamin w/minerals (THERA-VIT-M) tablet 1 tablet 1 tablet Oral Daily Bernardino Garcia MD 1 tablet at 10/27/24 0900 piperacillin-tazobactam (ZOSYN) 3.375 g vial to attach to NS 100 mL bag 3.375 g Intravenous Q6H Wilber Torres MD 200 mL/hr at 10/22/24 2152 3.375 g at 10/27/24 0906 psyllium (METAMUCIL/KONSYL) capsule 5 capsule 5 capsule Oral Daily Bernardino Garcia MD 5 capsule at 10/27/24 0900 sodium chloride (PF) 0.9% PF flush 3 mL 3 mL Intracatheter Q8H Bernardino Garcia MD 3 mL at 10/27/24 0902 Infusion Meds Current Facility-Administered Medications Medication Dose Route Frequency Provider Last Rate Last Admin Allergies Allergies Allergen Reactions Carbamazepine Rash Phenobarbital Phenytoin Rash high fever Valproic Acid Rash Procarbazine Rash Sulfa Antibiotics Rash PHYSICAL EXAMINATION Temp: [97.8 ??F (36.6 ??C)-99.8 ??F (37.7 ??C)] 97.8 ??F (36.6 ??C) Pulse: [69-104] 104 Resp: [18] 18 BP: (125-139)/(70-82) 126/74 SpO2: [86 %-98 %] 95 % Neuro Exam Mental Status: alert, oriented x 3, follows commands, speech clear and fluent, naming and repetition normal Cranial Nerves: visual avendaño intact (tested by nurse), EOMI with normal smooth pursuit, facial sensation intact and symmetric (tested by nurse), facial movements symmetric, hearing not formally tested but intact to conversation, no dysarthria, shoulder shrug equal bilaterally, tongue protrusion midline Motor: bilateral hand tremor (L>R), subtle LUE drift Reflexes: unable to test (telestroke) Sensory: light touch sensation intact and symmetric throughout upper and lower extremities (assessed by nurse), no extinction on double simultaneous stimulation (assessed by nurse) Coordination: normal [id number]-[id number] and iqdg-ea-vqjs bilaterally without dysmetria Station/Gait: unable to test due to telestroke Stroke Scales NIHSS 1a. Level of Consciousness 0-->Alert, keenly responsive 1b. LOC Questions 0-->Answers both questions correctly 1c. LOC Commands 0-->Performs both tasks correctly 2. Best Gaze 0-->Normal 3. Visual 0-->No visual loss 4. Facial Palsy 0-->Normal symmetrical movements 5a. Motor Arm, Left 1-->Drift, limb holds 90 (or 45) degrees, but drifts down before full 10 seconds, does not hit bed or other support 5b. Motor Arm, Right 0-->No drift, limb holds 90 (or 45) degrees for full 10 secs 6a. Motor Leg, Left 0-->No drift, leg holds 30 degree position for full 5 secs 6b. Motor Leg, right 0-->No drift, leg holds 30 degree position for full 5 secs 7. Limb Ataxia 0-->Absent 8. Sensory 0-->Normal, no sensory loss 9. Best Language 0-->No aphasia, normal 10. Dysarthria 0-->Normal 11. Extinction and Inattention 0-->No abnormality Total 1 (10/27/24 1416) Imaging I personally reviewed all imaging; relevant findings per HPI. Labs Data CBC Recent Labs Lab 10/23/24 1304 10/22/24 0703 WBC 10.8 9.1 RBC 4.14* 4.14* HGB 12.6* 12.0* HCT 36.8* 36.7* PLT 306 325 Basic Metabolic Panel Recent Labs Lab 10/27/24 1450 10/27/24 1116 10/27/24 0907 10/23/24 1714 10/23/24 1304 10/22/24 0807 10/22/24 0703 NA -- -- -- -- 129* -- 130* POTASSIUM -- -- -- -- 4.6 -- 4.3 CHLORIDE -- -- -- -- 94* -- 92* CO2 -- -- -- -- 29 -- 30* BUN -- -- -- -- 19.4 -- 14.7 CR -- -- -- -- 0.75 -- 0.67 GLC 227* 228* 89 < > 150* < > 95 LUIS -- -- -- -- 7.9* -- 8.1* < > = values in this interval not displayed. Liver Panel No results for input(s): PROTTOTAL, ALBUMIN, BILITOTAL, ALKPHOS, AST, ALT, BILIDIRECTin the last 168 hours. INR Recent Labs Lab Test 12/22/19 1515 12/08/19 1516 11/24/19 1519 INR 2.60* 3.20* 1.90* Stroke Consult Data Data Telestroke Service Details (for non-emergent stroke consult with tele) Video start time 10/27/24 1415 Video end time 10/27/24 1447 Type of service telemedicine diagnostic assessment of acute neurological changes Reason telemedicine is appropriate patient requires assessment with a specialist for diagnosis and treatment of neurological symptoms Mode of transmission secure interactive audio and video communication per Kateryna Originating site (patient location) [facility] Distant site (provider location) [facility] I have personally spent a total of 40 minutes providing care today, time spent in reviewing medicalrecords and devising the plan as recorded above. Cosigned by Julio Cesar Espinosa MD at 10/27/2024 3:27 PM CDT Associated attestation - Julio Cesar Espinosa MD - 10/27/2024 3:27 PM CDT I did not examine the patient. I have reviewed and discussed the assessment and plan for Alena Rae with the H[facility] and agree with their documentation. I did not participate in a shared visit by interviewing or examining the patient and this should be billed as an advanced practice provider only visit. Julio Cesar Espinosa MD [employer] Department of Neurology * [facility] Joanna BernardoASHOK CLINICAL INFORMATICS STRATEGIST - 10/24/2024 2:38 PM CSTAssociated Order(s): INTERVENTIONAL RADIOLOGY ADULT/PEDS IP CONSULT Images from the original note were not included. IR consult for a R chest tube removal as pulmonary done with treatment. This will be done by Radiology RNs in patient room today. 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 He presented to the ED on 10/12/2024 after a fall. He was hypoxic in the emergency department, and subsequently had a negative CTPE. That scan also did show right lower lobe pneumonia and a small parapneumonic effusion. He was started on broad-spectrum antibiotics and admitted to the hospital for further care. This admission he underwent thoracentesis as well as IR pigtail chest tube placement. Pleural fluid cytology and cultures were negative. He underwent intrapleural fibrinolytic therapy x 6 doses via right pigtail with near complete drainage of the right chest. Repeat CT chest yesterday shows significant basilar pneumonia and atelectasis with mild lung trapping as well as a small amount of remaining pleural fluid. A/P: Patient is a 63 year old male with right lower lobe pneumonia, subsequent parapneumonic effusion, and a trapped right lung. Thoracic surgery is consulted for evaluation and management of right lung trapping. -Surgical decortication not indicated at this time given remaining pneumonia and atelectasis with relatively minimal lung trapping -Recommend continuation of antibiotic therapy as well as chest physiotherapy (chest physiotherapy ordered this p.m.) -Recommend follow-up with thoracic surgery in approximately [address] scan. Communication has been sent to the thoracic surgery outpatient team to help arrange this. -Please feel free to call with questions Plan discussed with the patient and his spouse at bedside, who demonstrated understanding and had no further questions. Patient and plan also discussed with thoracic staff surgeon, Dr. Norwood, as well as hospitalist, Dr. Torres Thank you for the opportunity to participate in the care of this patient. PMH: Past Medical History: Diagnosis Date Benign essential [...] 11/21/2016 Paroxysmal atrial fibrillation (H) Seizures (H) PSH: Past Surgical History: Procedure Laterality Date APPENDECTOMY 1997 BIOPSY 2021 Basal cell carcinoma, Mohs surgery performed BRAIN SURGERY x2 COLONOSCOPY 2012 Polyps removed COLONOSCOPY N/A 05/14/2023 Procedure: Colonoscopy with polypectomy using jumbo forcep; Surgeon: Jazmyn Lord MD; Location: GI CV CORONARY ANGIOGRAM N/A 06/18/2019 Procedure: CV Coronary Angiogram; Surgeon: Juan Wu MD; Location: HEART CARDIAC CENTRAL SERVICES TECH EYE SURGERY Lasik REPLACE VALVE AORTIC N/A 07/04/2019 Procedure: AORTIC VALVE REPLACEMENT WITH VALVE AORTIC PERIMOUNT MAGNA-EASE BIOPROSTH SIZE: 23MM ON PUMP OXYGENATOR AND [facility]; Surgeon: Ej Haines MD; Location: OR TONSILLECTOMY UVULECTOMY 1993 FH: family history includes Bladder Cancer in his [...] in his brother, mother, sister, and sister. SH: Social History Tobacco Use Smoking status: Never Smokeless tobacco: Never Vaping Use Vaping status: Never Used Substance Use Topics Alcohol use: Yes Comment: 2/week Drug use: No Allergies: Allergies Allergen Reactions Carbamazepine Rash Phenobarbital Phenytoin Rash high fever Valproic Acid Rash Procarbazine Rash Sulfa Antibiotics Rash Home Meds: Medications Prior to Admission Medication Sig Dispense Refill Last Dose/Taking apixaban ANTICOAGULANT (ELIQUIS ANTICOAGULANT) 5 MG tablet Take 1 tablet (5 mg) by mouth 2 times daily. Discontinue when bottle is completed and start ASA 10/12/2024 Morning carvedilol (COREG) 12.5 MG tablet Take 1 tablet (12.5 mg) by mouth 2 times daily (with meals) 180 tablet 3 10/12/2024 Morning cholecalciferol (VITAMIN D3) 125 mcg (5000 units) capsule Take 125 mcg by mouth daily. 10/12/2024 Morning Continuous Glucose Sensor ([employer] G7 SENSOR) MISC Change every 10 days. 9 each 5 Taking ezetimibe (ZETIA) 10 MG tablet Take 10 mg by mouth every evening. 10/11/2024 Evening insulin aspart (NOVOLOG VIAL) 100 UNITS/ML vial Uses about 80 units per day 80 mL 3 Taking Insulin Disposable Pump (OMNIPOD 5 G7 PODS, GEN 5,) MISC 1 pod See Admin Instructions. Change every3 days 30 each 3 Taking insulin glargine (LANTUS PEN) 100 UNIT/ML pen 20 units if pod fails 3 mL Unknown INSULIN PUMP - OUTPATIENT Inject subcutaneously. Date Last Updated: 10/12/24 Omnipod BASAL RATES and times: Continuous (0057-0443: 0.9 units/hour CARB RATIO and times: 7913-3487: 1 unit for 10g of carbohydrates Corection Factor (Sensitivity) and times: 1848-7289: 1 unit lowers BG by 40 mg/dL BLOOD GLUCOSE TARGET and times: 110 - 120 mg/dL Active Insulin Time: 2.5 hours Sensor: Yes: lower limit = 70 mg/dL, upper limit = 180 mg/dL Changes pump q3d 10/12/2024 insulin syringe-needle U-100 (30G X 1/2 0.3 ML) 30G X 1/2 0.3 ML miscellaneous Use in the event of pump failure and need to administer manual injection. 10 each 11 Taking LAMOTRIGINE PO Take 300 mg by mouth 2 times daily 10/12/2024 Morning lisinopril (ZESTRIL) 30 MG tablet Take 1 tablet (30 mg) by mouth daily. 90 tablet 1 10/11/2024 Morning Melatonin 10 MG TABS tablet Take 10 mg by mouth at bedtime. 10/11/2024 Bedtime metFORMIN (GLUCOPHAGE) 500 MG tablet Take 1 tablet (500 mg) by mouth daily (with dinner) 90 tablet 3 10/11/2024 Evening modafinil (PROVIGIL) 200 MG tablet Take 0.5-1 tablets (100-200 mg) by mouth daily as needed (daytime sleepiness) 90 tablet 1 Unknown Multiple Vitamins-Minerals (MENS MULTI VITAMIN & MINERAL PO) Take 1 tablet by mouth daily 10/12/2024 Morning Psyllium (METAMUCIL FIBER PO) Take 1 Dose by mouth daily. 10/12/2024 Morning sildenafil (VIAGRA) 100 MG tablet Take 1 tablet (100 mg) by mouth daily as needed (30 minutes priorto sexual activity) 12 tablet 11 Unknown tiZANidine (ZANAFLEX) 2 MG tablet TAKE 1-2 TABLETS BY MOUTH EVERY NIGHT AT BEDTIME NEEDED DIRECTED FOR LOW BACK PAIN* Unknown vitamin C (ASCORBIC ACID) 1000 MG TABS Take 1 tablet by mouth daily 10/12/2024 Morning zinc gluconate 50 MG tablet Take 50 mg by mouth daily 10/12/2024 Morning acetone urine (KETOSTIX) test strip Use to check urine ketones in the event of pump failure or unexplained blood glucoses over 250 and not resolving. 25 strip 3 ROS: Reports mild shortness of breath. Denies chest pain.. Remainder of pertinent 12pt ROS negative. Physical Exam: Temp: [97.4 ??F (36.3 ??C)-99.4 ??F (37.4 ??C)] 97.4 ??F (36.3 ??C) Pulse: [79-99] 79 Resp: [17-18] 18 BP: (100-128)/(59-81) 118/75 SpO2: [90 %-99 %] 94 % Gen: NAD, resting comfortably in bed Lungs: Nonlabored breathing on 3 L nasal cannula CV: Regular rate and rhythm per telemetry Abd: Nondistended Ext: Warm and well-perfused Neuro: AOx3 Labs: ABG No lab results found in last 7 days. CBC Recent Labs Lab 10/23/24 1304 10/22/24 0703 WBC 10.8 9.1 HGB 12.6* 12.0* PLT 306 325 BMP Recent Labs Lab 10/24/24 1309 10/24/24 0941 10/24/24 0815 10/24/24 0610 10/23/24 1714 10/23/24 1304 10/22/24 0807 10/22/24 0703 10/19/24 0817 10/19/24 0634 10/18/24 0827 10/18/24 0633 NA -- -- -- -- -- 129* -- 130* -- -- -- 139 POTASSIUM -- -- -- -- -- 4.6 -- 4.3 -- -- -- 3.4 CHLORIDE -- -- -- -- -- 94* -- 92* -- -- -- 99 CO2 -- -- -- -- -- 29 -- 30* -- -- -- 31* BUN -- -- -- -- -- 19.4 -- 14.7 -- -- -- 22.6 CR -- -- -- -- -- 0.75 -- 0.67 -- 0.78 -- 0.71 GLC 187* 241* 205* 76 < > 150* < > 95 < > -- < > 117* < > = values in this interval not displayed. LFTNo lab results found in last 7 days. PancreasNo lab results found in last 7 days. Imaging: As noted above Dominic Smith PA-C CTOR VIDEO * Melvin Urena - 10/20/2024 2:30 PM CSTAssociated Order(s): SPIRITUAL HEALTH SERVICES IP CONSULT SPIRITUAL HEALTH SERVICES - Consult Note RH Med/Surg 3 Referral Source: [facility] consult to assess pt's emotional/spiritual resources and needs per his length of stay. Oriented pt Alena to [facility]. He reported that his orthodoxy coconut jelly roller from [facility] in [place] has seen him twice during his admission. Alena also named his spouse, daughter, and son as being part of his support network. He shared that his biggest concern is getting his chest tubes out. Alena welcomed prayer. Plan: Informed pt how he can request further hospital administrative assistant support. This author and other chaplains remain available per pt/family request. Melvin Urena M.Div., [facility] Staff Bar [employer] [facility] available 12/03 for emergent requests/referrals, either by paging the on-call hospital administrative assistant or by entering an CAMILLE/STAT consult in [facility], which will also page the on-call hospital administrative assistant. CTOR VIDEO * Aristeo Tova Trevizo, [facility] - 10/17/2024 11:37 AM CSTAssociated Order(s): CARE MANAGEMENT / SOCIAL WORK IP CONSULT Care Management Initial Consult General Information Assessment completed with: PatientAlena Type of CM/SW Visit: Initial Assessment Primary Care Provider verified and updated as needed: Yes Readmission within the last 30 days: no previous admission in last 30 days Reason for Consult: discharge planning Advance Care Planning: Communication Assessment Patient's communication style: spoken language (Lebanese or Bilingual) Hearing Difficulty or Deaf: no Wear Glasses or Blind: yes Cognitive Cognitive/Neuro/Behavioral: WDL Level of Consciousness: alert Arousal Level: opens eyes spontaneously Orientation: oriented x 4 Mood/Behavior: calm, cooperative Best Language: 0 - No aphasia Speech: clear Living Environment: People in home: spouse Baylee Current living Arrangements: house Able to return to prior arrangements: Family/Social Support: Care provided by: self Provides care for: no one Marital Status: Support system: Baylee Description of Support System: Supportive, Involved Support Assessment: Adequate family and caregiver support Current Resources: Patient receiving home care services: Community Resources: Equipment currently used at home: none Supplies currently used at home: Employment/Financial: Employment Status: Financial Concerns: Does the patient's insurance plan have a 3 day qualifying hospital stay waiver? Yes Which insurance plan 3 day waiver is available? Alternative insurance waiver Will the waiver be used for post-acute placement? Undetermined at this time Lifestyle & Psychosocial Needs: Social Drivers of Health Food Insecurity: Low Risk (10/12/2024) Food Insecurity Within the past 12 months, did you worry that your food would run out before you got money to buy more?: No Within the past 12 months, did the food you bought just not last and you didn???t have money to getmore?: No Depression: Not at risk (11/23/2023) PHQ-2 PHQ-2 Score: 0 Housing Stability: Low Risk (10/12/2024) Housing Stability Do you have housing? : Yes Are you worried about losing your housing?: No Tobacco Use: Low Risk (07/11/2024) Patient History Smoking Tobacco Use: Never Smokeless Tobacco Use: Never Passive Exposure: Not on file Financial Resource Strain: Low Risk (10/12/2024) Financial Resource Strain Within the past 12 months, have you or your family members you live with been unable to get utilities (heat, electricity) when it was really needed?: No Alcohol Use: Not At Risk (07/12/2023) AUDIT-C Frequency of Alcohol Consumption: 2-4 times a month Average Number of Drinks: 1 or 2 Frequency of Binge Drinking: Less than monthly Transportation Needs: Low Risk (10/12/2024) Transportation Needs Within the past 12 months, has lack of transportation kept you from medical appointments, getting your medicines, non-medical meetings or appointments, work, or from getting things that you need?: No Physical Activity: Insufficiently Active (07/12/2023) Exercise Vital Sign Days of Exercise per Week: 3 days Minutes of Exercise per Session: 30 min Interpersonal Safety: Low Risk (10/12/2024) Interpersonal Safety Do you feel physically and emotionally safe where you currently live?: Yes Within the past 12 months, have you been hit, slapped, kicked or otherwise physically hurt by someone?: No Within the past 12 months, have you been humiliated or emotionally abused in other ways by your partner or ex-partner?: No Stress: Patient Declined (07/12/2023) [place] [employer] Occupational Health - Occupational Stress Questionnaire Feeling of Stress : Patient declined Social Connections: Socially Integrated (07/12/2023) Social Connection and Isolation Panel [NHANES] Frequency of Communication with Friends and Family: Twice a week Frequency of Social Gatherings with Friends and Family: Once a week Attends Oriental [employer] Services: More than 4 times per year Active Member of Clubs or Organizations: Yes Attends Club or Organization Meetings: More than 4 times per year Marital Status: Health Literacy: Not on file Functional Status: Prior to admission patient needed assistance: Mental Health Status: Chemical Dependency Status: Values/Beliefs: Spiritual, Cultural Beliefs, Oriental Orthodox Practices, Values that affect care: Discussed ???Partnership in Safe Discharge Planning??? document with patient/family: No Additional Information: SW consulted for elevated risk level for readmission. SW spoke with pt, who was alert and orientated x4 and engaged in conversation appropriately. Pt resides at private home with spouse, Baylee. Pt stated he feels well supported at home and has no current needs. Pt confirmed that spouse, Baylee, willbe transporting him home when he is medically ready. Pharmacy confirmed to [facility]. Next Steps: SW assessed and signing off. Will monitor for discharge needs if any arises. HERMAN Duran Preconstruction Manager Inpatient Care Coordination Glass Crusher Corporate Training Manager [facility] [phone] HERMAN Nicholson CTOR VIDEO * Joanna León APRN CLINICAL INFORMATICS STRATEGIST - 10/16/2024 8:48 AM CSTAssociated Order(s): INTERVENTIONAL RADIOLOGY ADULT/PEDS IP CONSULT Patient is on US schedule today for a R chest tube placement with local. 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 He presented to the ED on 10/12/2024 after a fall. Of note, he had had influenza about 10 days earlier. He felt weak and had had some recurrence of left arm and leg weakness like he had with his astrocytoma. R pleural effusion has increased per CT chest and pulmonology requesting chest tube for lytics to increase drainage. -Labs WNL for procedure. -No NPO required. -Consent will be done prior to procedure. Temp: [97.8 ??F (36.6 ??C)-100.6 ??F (38.1 ??C)] 98.6 ??F (37 ??C) Pulse: [78-131] 79 Resp: [20-69] 25 BP: (107-148)/(62-88) 145/88 SpO2: [87 %-100 %] 93 % ROUTINE ICU LABS (Last four results) CMP Recent Labs Lab 10/16/24 0814 10/16/24 0744 10/16/24 0118 10/15/24 2121 10/15/24 1809 10/15/24 0640 10/15/24 0545 10/14/24 1138 10/14/24 1024 10/14/24 0816 10/14/24 0606 10/13/24 2047 10/13/24 1955 10/13/24 0840 10/13/24 0701 10/12/24 1100 10/12/24 1055 NA -- -- -- -- -- -- 131* -- -- -- 129* -- 126* -- 126* < > 126* POTASSIUM -- -- -- -- -- -- 4.0 -- -- -- 4.8 -- -- -- 4.4 -- 4.5 CHLORIDE -- -- -- -- -- -- 95* -- -- -- 92* -- -- -- 91* -- 90* CO2 -- -- -- -- -- -- 23 -- -- -- 19* -- -- -- 24 -- 26 ANIONGAP -- -- -- -- -- -- 13 -- -- -- 18* -- -- -- 11 -- 10 GLC 230* -- 301* 330* 315* < > 260* < > -- < > 283* < > -- < > 318* < > 223* BUN -- -- -- -- -- -- 27.6* -- -- -- 30.8* -- -- -- 24.7* -- 22.1 CR -- 0.68 -- -- -- -- 0.89 -- -- -- 0.93 -- -- -- 0.80 < > 0.94 GFRESTIMATED -- >90 -- -- -- -- >90 -- -- -- >90 -- -- -- >90 < > >90 LUIS -- -- -- -- -- -- 8.6* -- -- -- 9.0 -- -- -- 8.9 -- 9.0 MAG -- 2.2 -- -- -- -- 2.2 -- -- -- 2.4* -- -- -- 2.1 -- -- PHOS -- 3.3 -- -- -- -- 3.3 -- -- -- 3.6 -- -- -- 3.6 -- -- PROTTOTAL -- -- -- -- -- -- -- -- 5.8* 5.8* -- -- -- -- -- 5.9* -- 6.4 ALBUMIN -- -- -- -- -- -- -- -- 2.9* -- -- -- -- -- 3.3* -- 3.9 BILITOTAL -- -- -- -- -- -- -- -- 0.4 -- -- -- -- -- 0.8 -- 1.4* ALKPHOS -- -- -- -- -- -- -- -- 108 -- -- -- -- -- 95 -- 93 AST -- -- -- -- -- -- -- -- 17 -- -- -- -- -- 18 -- 15 ALT -- -- -- -- -- -- -- -- 20 -- -- -- -- -- 20 -- 22 < > = values in this interval not displayed. CBC Recent Labs Lab 10/15/24 0545 10/14/24 0606 10/13/24 0701 10/12/24 1055 WBC 10.7 13.5* 13.4* 14.4* RBC 4.26* 4.42 4.23* 4.74 HGB 12.9* 13.4 12.7* 14.6 HCT 37.1* 38.2* 36.9* 40.9 MCV 87 86 87 86 MCH 30.3 30.3 30.0 30.8 MCHC 34.8 35.1 34.4 35.7 RDW 12.1 11.8 11.8 11.5 PLT 240 196 167 180 INRNo lab results found in last 7 days. Arterial Blood GasNo lab results found in last 7 days. Please contact the US department for procedural related questions. Reviewed with IR Dr Cedeño Total time: 20 minutes Gloria Samuel [facility] Interventional Radiology CLINICAL INFORMATICS STRATEGIST ([phone]) (phone [phone]) Electronically signed by [facility] HospitalJoanna APRN CLINICAL INFORMATICS STRATEGIST at 10/16/2024 8:48 AM DIRECTOR VIDEO * Kayla Baca MD - 10/15/2024 3:11 PM CSTAssociated Order(s): PULMONARY IP CONSULT Images from the original note were not included. Alena Rae Age: [age] year old Date of : 1960 Date of Admission: 10/12/2024 Reason for Consultation: RLL pneumonia Requesting Physician: No referring provider defined for this encounter. Assessment and Plan: Acute hypoxic respiratory failure Suspect postviral syndrome bacterial community-acquired pneumonia and right lower lung Small parapneumonic effusion based on CT chest on 10/12 Thoracentesis was difficult by IR, although recent CT chest showed very small effusion (tiny). Effusion may have increased and will get a stat CT chest now to confirm and if effusion has increased will plan to place chest tube. May need the use of lytes with chest tube to increase drainage Place consult to IR for chest tube after review of chest CT (happy to perform myself if present). Follow pleural fluid studies Agree with broad spectrum antibiotics. The patient was seen and examined with the resident/fellow physician. We have discussed the patientin detail and I agree with the findings, assessment, and plan as documented when this note was cosigned on October 15, 2024. I have evaluated all laboratory values and imaging studies for the past 24 hours. I have reviewed all the consults that have been ordered and are active for this patient. Billing: The patient was seen and examined by me and the findings, assessment, and plan as documented was explained to the patient/family who expressed understand. I spent more than 30 minutes face to face and greater than 50% of time was for counseling and coordination of care about the issues above. 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 He presented to the ED on 10/12/2024 after a fall. He was found to be hypoxemic in the ED and CT of chest with PE protocol showed no PE. It did show right lower lung pneumonia and multiple liver lesions. Trace right pleural effusion was noted. He wasstarted on Rocephin and Zithromax and admitted to the hospital for further cares. Antigen test for pneumococcal pneumonia and Legionella are negative. Recent influenza infection about 10 days ago. Denies smoking. He was sent for a thoracentesis but there was only scant return with neutrophilic predominance and wbc +4 with no growth. Subjective fevers with chest pain. Past Medical History: Past Medical History: Diagnosis Date Benign essential [...] 11/21/2016 Paroxysmal atrial fibrillation (H) Seizures (H) Past Surgical History: Past Surgical History: Procedure Laterality Date APPENDECTOMY 1998 BIOPSY 2021 Basal cell carcinoma, Mohs surgery performed BRAIN SURGERY x2 COLONOSCOPY 2012 Polyps removed COLONOSCOPY N/A 05/14/2023 Procedure: Colonoscopy with polypectomy using jumbo forcep; Surgeon: Jazmyn Lord MD; Location: GI CV CORONARY ANGIOGRAM N/A 06/18/2019 Procedure: CV Coronary Angiogram; Surgeon: Juan Wu MD; Location: HEART CARDIAC CENTRAL SERVICES TECH EYE SURGERY Lasik REPLACE VALVE AORTIC N/A 07/04/2019 Procedure: AORTIC VALVE REPLACEMENT WITH VALVE AORTIC PERIMOUNT MAGNA-EASE BIOPROSTH SIZE: 23MM ON PUMP OXYGENATOR AND CARLOS EDUARDO BY HALEY; Surgeon: Ej Haines MD; Location: SH OR TONSILLECTOMY UVULECTOMY 1993 Social History: Social History Tobacco Use Smoking status: Never Smokeless tobacco: Never Substance Use Topics Alcohol use: Yes Comment: 2/week Family History: Family History Problem Relation Age of Onset Hypertension Mother Thyroid Disease Mother Bladder Cancer Father Other Cancer Father Bladder cancer Cerebrovascular Disease Maternal Grandmother Heart Disease Paternal Grandmother Lung Cancer Paternal Grandfather Lupus Daughter Seizure Disorder Sister Thyroid Disease Sister Diabetes Sister Thyroid Disease Sister Thyroid Disease Brother Breast Cancer Other Allergies: Allergies Allergen Reactions Carbamazepine Rash Phenobarbital Phenytoin Rash high fever Valproic Acid Rash Procarbazine Rash Sulfa Antibiotics Rash Medications: Current Facility-Administered Medications Medication Dose Route Frequency Provider Last Rate Last Admin acetaminophen (TYLENOL) tablet 650 mg 650 mg Oral Q4H PRN Arielle Martel DO 650 mg at 10/14/24 1805 Or acetaminophen (TYLENOL) Suppository 650 mg 650 mg Rectal Q4H PRN Arielle Martel DO amiodarone (NEXTERONE) 1.8 mg/mL in dextrose 5% 200 mL ADULT STANDARD infusion 0.5 mg/min Intravenous Continuous Angelia, Horacio Valiente MD 16.7 mL/hr at 10/15/24 1556 0.5 mg/min at 10/15/24 1556 apixaban ANTICOAGULANT (ELIQUIS) tablet 5 mg 5 mg Oral BID Arielle Martel DO 5 mg at 914 benzonatate (TESSALON) capsule 100 mg 100 mg Oral TID PRN Ortiz Chew MD 100 mg at 10/15/24 0929 bisacodyl (DULCOLAX) suppository 10 mg 10 mg Rectal Daily PRN Bernardino Garcia MD 10 mg at 10/15/24 1158 calcium carbonate (TUMS) chewable tablet 1,000 mg 1,000 mg Oral 4x Daily PRN Arielle Martel DO carboxymethylcellulose PF (REFRESH PLUS) 0.5 % ophthalmic solution 1 drop 1 drop Both Eyes Q1H PRN Bernardino Garcia MD carvedilol (COREG) tablet 12.5 mg 12.5 mg Oral BID w/meals Bernardino Garcia MD 12.5 mg at 10/15/24 0913 glucose gel 15-30 g 15-30 g Oral Q15 Min PRN Tiarra Smalls PA-C Or dextrose 50 % injection 25-50 mL 25-50 mL Intravenous Q15 Min PRN Tiarra Smalls PA-C Or glucagon injection 1 mg 1 mg Subcutaneous Q15 Min PRN Tiarra Smalls PA-C diclofenac (VOLTAREN) 1 % topical gel 2 g 2 g Topical 4x Daily Tiarra Smalls PA-C 2 g at 10/15/24 1215 ezetimibe (ZETIA) tablet 10 mg 10 mg Oral QPM Arielle Martel DO 10 mg at 10/14/24 203 guaiFENesin (MUCINEX) 12 hr tablet 600 mg 600 mg Oral BID Tiarra Smalls PA-C 600 mg at 10/15/24 0912 HYDROmorphone (DILAUDID) injection 0.2 mg 0.2 mg Intravenous Q4H PRN Tiarra Smalls PA-C 0.2 mg at 10/13/24 1838 hydrOXYzine HCl (ATARAX) tablet 25 mg 25 mg Oral Q6H PRN Tiarra Smalls PA-C 25 mg at 10/14/24 1141 insulin aspart (NovoLOG) injection (RAPID ACTING) Subcutaneous TID w/meals Bernardino Garcia MD 1 Units at 10/14/24 1356 insulin aspart (NovoLOG) injection (RAPID ACTING) 1-7 Units Subcutaneous TID AC Tiarra Smalls PA-C 4 Units at 10/15/24 1212 insulin aspart (NovoLOG) injection (RAPID ACTING) 1-5 Units Subcutaneous At Bedtime Araseli Smalls PA-C 3 Units at 10/14/24 2242 insulin glargine (LANTUS PEN) injection 22 Units 22 Units Subcutaneous At Bedtime Bernardino Garcia MD lamoTRIgine (LaMICtal) tablet 300 mg 300 mg Oral BID Arielle Martel DO 300 mg at 10/15/24 0914 Lidocaine (LIDOCARE) 4 % Patch 1 patch 1 patch Transdermal Q24H Arielle Martel DO 1 patch at 10/15/24 0909 lidocaine (LMX4) cream Topical Q1H PRN Bernardino Garcia MD lidocaine 1 % 0.1-1 mL 0.1-1 mL Other Q1H PRN Bernardino Garcia MD lisinopril (ZESTRIL) tablet 30 mg 30 mg Oral Daily Arielle Martel DO 30 mg at 10/15/24 0913 metFORMIN (GLUCOPHAGE) tablet 500 mg 500 mg Oral Daily with supper Bernardino Garcia MD multivitamin w/minerals (THERA-VIT-M) tablet 1 tablet 1 tablet Oral Daily Bernardino Garcia MD naloxone (NARCAN) injection 0.2 mg 0.2 mg Intravenous Q2 Min PRN Arielle Martel DO Or naloxone (NARCAN) injection 0.4 mg 0.4 mg Intravenous Q2 Min PRN Arielle Martel DO Or naloxone (NARCAN) injection 0.2 mg 0.2 mg Intramuscular Q2 Min PRN Arielle Martel DO Or naloxone (NARCAN) injection 0.4 mg 0.4 mg Intramuscular Q2 Min PRN Arielle Martel DO ondansetron (ZOFRAN ODT) ODT tab 4 mg 4 mg Oral Q6H PRN Arielle Martel DO Or ondansetron (ZOFRAN) injection 4 mg 4 mg Intravenous Q6H PRN Arielle Martel DO oxyCODONE (ROXICODONE) tablet 5 mg 5 mg Oral Q4H PRN Horacio Galan MD 5 mg at 10/14/24 2241 piperacillin-tazobactam (ZOSYN) 3.375 g vial to attach to NS 100 mL bag 3.375 g Intravenous Q6H Ortiz Chew MD 200 mL/hr at 10/14/24 1323 3.375 g at 10/15/24 0915 [START ON 10/16/2024] psyllium (METAMUCIL/KONSYL) capsule 5 capsule 5 capsule Oral Daily Bernardino Garcia MD senna-docusate (SENOKOT-S/PERICOLACE) 8.6-50 MG per tablet 1 tablet 1 tablet Oral BID PRN Arielle Martel DO 1 tablet at 10/15/24 0914 Or senna-docusate (SENOKOT-S/PERICOLACE) 8.6-50 MG per tablet 2 tablet 2 tablet Oral BID PRN Arielle Martel DO sodium chloride (PF) 0.9% PF flush 3 mL 3 mL Intracatheter Q8H Horacio Galan MD sodium chloride (PF) 0.9% PF flush 3 mL 3 mL Intracatheter q1 min prn Horacio Galan MD sodium chloride (PF) 0.9% PF flush 3 mL 3 mL Intracatheter Q8H Bernardino Garcia MD sodium chloride (PF) 0.9% PF flush 3 mL 3 mL Intracatheter q1 min prn Bernardino Garcia MD sodium chloride (PF) 0.9% PF flush 3 mL 3 mL Intracatheter Q8H Arielle Martel, DO 3 mL at 10/15/24 0947 sodium chloride (PF) 0.9% PF flush 3 mL 3 mL Intracatheter q1 min prn Arielle Martel DO tiZANidine (ZANAFLEX) tablet 2-4 mg 2-4 mg Oral Q8H PRN Tiarra Smalls PA- C 2 mg at 10/14/24 1700 Review of Systems: CONSTITUTIONAL: negative for fever, chills, change in weight INTEGUMENTARY/SKIN: no rash or obvious new lesions ENT/MOUTH: no sore throat, new sinus pain or nasal drainage RESP: see interval history CV: negative for chest pain, palpitations or peripheral edema GI: no nausea, vomiting, change in stools : no dysuria MUSCULOSKELETAL: no myalgias, arthralgias ENDOCRINE: blood sugars with adequate control PSYCHIATRIC: mood stable LYMPHATIC: no new lymphadenopathy HEME: no bleeding or easy bruisability NEURO: no numbness, weakness, headaches Physical Exam: Temp: [97.8 ??F (36.6 ??C)-98.8 ??F (37.1 ??C)] 98.8 ??F (37.1 ??C) Pulse: [86-145] 89 Resp: [20-69] 20 BP: (96-145)/(56-79) 145/79 SpO2: [87 %-100 %] 100 % Wt Readings from Last 4 Encounters: 10/15/24 81.5 kg (179 lb 11.2 oz) 07/11/24 84.5 kg (186 lb 3.2 oz) 06/16/24 83.9 kg (185 lb) 05/30/24 83.9 kg (185 lb) Constitutional: Awake, alert and in no apparent distress Eyes: Nonicteric, ZEENAT ENT: Trachea is midline. No gross neck abnormalities Neck: Supple without supraclavicular or cervical lymphadenopathy Lungs: Reduced breath sounds on right lung Cardiovascular: Normal S1 and S2. RRR. No murmur, gallop or rub. Radial, DP and PT pulses normal and symmetric Abdomen: NABS, soft, nontender, nondistended. No HSM. Musculoskeletal: No edema. Neurologic: Alert and conversant. Cranial nerves intact. Skin: Warm, dry. No rash on limited exam. Current Laboratory Data: All laboratory and imaging data reviewed. Results for orders placed or performed during the hospital encounter of 10/12/24 (from the past 24 hours) Glucose by meter Result Value Ref Range GLUCOSE BY METER POCT 269 (H) 70 - 99 mg/dL Glucose by meter Result Value Ref Range GLUCOSE BY METER POCT 321 (H) 70 - 99 mg/dL EKG 12-lead, tracing only Result Value Ref Range Systolic Blood Pressure mmHg Diastolic Blood Pressure mmHg Ventricular Rate 146 BPM Atrial Rate 192 BPM OH Interval ms QRS Duration 108 ms QT 318 ms QTc 495 ms P [place] degrees R AXIS 9 degrees T [place] 79 degrees Interpretation ECG Atrial fibrillation with rapid ventricular response Incomplete right bundle branch block ST depression, consider subendocardial injury Abnormal ECG Confirmed by CAROLYNE BURTON ([id number]) on 10/15/2024 3:06:01 PM Glucose by meter Result Value Ref Range GLUCOSE BY METER POCT 358 (H) 70 - 99 mg/dL Lactic Acid Whole Blood w/ 1x repeat in 2 hrs when >2 Result Value Ref Range Lactic Acid, Initial 1.5 0.7 - 2.0 mmol/L CBC with Platelets & Differential Narrative The following orders were created for panel order CBC with Platelets & Differential. Procedure Abnormality Status --------- ------ CBC with platelets and d...[[id number]] Abnormal Final result Please view results for these tests on the individual orders. Phosphorus Result Value Ref Range Phosphorus 3.3 2.5 - 4.5 mg/dL Magnesium Result Value Ref Range Magnesium 2.2 1.7 - 2.3 mg/dL Basic metabolic panel Result Value Ref Range Sodium 131 (L) 135 - 145 mmol/L Potassium 4.0 3.4 - 5.3 mmol/L Chloride 95 (L) 98 - 107 mmol/L Carbon Dioxide (CO2) 23 22 - 29 mmol/L Anion Gap 13 7 - 15 mmol/L Urea Nitrogen 27.6 (H) 8.0 - 23.0 mg/dL Creatinine 0.89 0.67 - 1.17 mg/dL GFR Estimate >90 >60 mL/min/1.73m2 Calcium 8.6 (L) 8.8 - 10.4 mg/dL Glucose 260 (H) 70 - 99 mg/dL CBC with platelets and differential Result Value Ref Range WBC Count 10.7 4.0 - 11.0 10e3/uL RBC Count 4.26 (L) 4.40 - 5.90 10e6/uL Hemoglobin 12.9 (L) 13.3 - 17.7 g/dL Hematocrit 37.1 (L) 40.0 - 53.0 % MCV 87 78 - 100 fL MCH 30.3 26.5 - 33.0 pg MCHC 34.8 31.5 - 36.5 g/dL RDW 12.1 10.0 - 15.0 % Platelet Count 240 150 - 450 10e3/uL % Neutrophils 79 % % Lymphocytes 8 % % Monocytes 11 % % Eosinophils 2 % % Basophils 0 % % Immature Granulocytes 0 % NRBCs per 100 WBC 0 <1 /100 Absolute Neutrophils 8.4 (H) 1.6 - 8.3 10e3/uL Absolute Lymphocytes 0.8 0.8 - 5.3 10e3/uL Absolute Monocytes 1.2 0.0 - 1.3 10e3/uL Absolute Eosinophils 0.2 0.0 - 0.7 10e3/uL Absolute Basophils 0.0 0.0 - 0.2 10e3/uL Absolute Immature Granulocytes 0.0 <=0.4 10e3/uL Absolute NRBCs 0.0 10e3/uL Glucose by meter Result Value Ref Range GLUCOSE BY METER POCT 229 (H) 70 - 99 mg/dL Glucose by meter Result Value Ref Range GLUCOSE BY METER POCT 250 (H) 70 - 99 mg/dL Glucose by meter Result Value Ref Range GLUCOSE BY METER POCT 293 (H) 70 - 99 mg/dL CT Chest w/o Contrast Narrative EXAM: CT CHEST W/O CONTRAST LOCATION: [facility] DATE: 10/15/2024 INDICATION: R pleural effusion COMPARISON: Chest x-ray yesterday and chest CT on 10/12/2024 TECHNIQUE: CT chest without IV contrast. Multiplanar reformats were obtained. Dose reduction techniques were used. CONTRAST: None. FINDINGS: LUNGS AND PLEURA: A [id number] sized partly loculated right pleural effusion predominantly along the upper and mid right lung, increased in size since 10/12/2024. Similarly, small amount of loculated fluid in the right major fissure is new Small layering left pleural effusion is new. Dense atelectasis in the right lung base. New mild groundglass opacities in the left upper lobe and compressive atelectasis in the left lower lobe. MEDIASTINUM/AXILLAE: No lymphadenopathy. Mild cardiomegaly. Aortic valvular prosthesis. CORONARY ARTERY CALCIFICATION: Severe. UPPER ABDOMEN: Redemonstration of indeterminate lesions in the liver, better characterized by the MRI yesterday simple cyst in the left kidney. MUSCULOSKELETAL: Median sternotomy. No suspicious lesions in the bones. Impression IMPRESSION: 1. Increased size of a moderate right pleural effusion which is now partly loculated along the upper and mid right pleural surface, and new loculated fluid in the right major fissure. 2. New small left pleural effusion. 3. New mild groundglass opacities in the left lung, likely due to edema. Increased dense atelectasis and consolidation in the bilateral lung bases. 4. Partly visualized indeterminate hepatic lesions, better characterized by the recent MRI. Previous Pulmonary Function Testing No results found for: No results found for: No results found for: No results found for: No results found for: No results found for: No results found for: No results found for: No results found for: No results found for: [id number] No results found for: No results found for: No results found for: No results found for: No results found for: No results found for: Previous Chest Imaging No images are attached to the encounter. @[email or web address]@ Previous Cardiology Imaging @[id number]@ CTOR VIDEO * Kathryn Hu RD - 10/15/2024 2:46 PM CSTAssociated Order(s): NUTRITION SERVICES ADULT IP CONSULT CLINICAL NUTRITION SERVICES - ASSESSMENT NOTE RECOMMENDATIONS FOR MDs/PROVIDERS TO ORDER: Liberalize diet as medically appropriate Malnutrition Status: Malnutrition Diagnosis: Patient does not meet two of the established criteria necessary for diagnosing malnutrition but is at risk for malnutrition Malnutrition Present on Admission: No Registered Dietitian Interventions: RN notified RD of poor appetite and intake, would like to discuss oral nutrition supplement options. Patient and family are aware of carbohydrate and fluid restrictions - would like to have supplementofferings at every meal for now as he has no interest in food at this time --> Will continue to monitor intake and adjust supplement order and intake improves Added MVI/M d/t suboptimal intakes. Oral intake encouragement appreciated. REASON FOR ASSESSMENT Provider order - Poor appetite and intake SUBJECTIVE INFORMATION Assessed patient in room. PMH: type I diabetes, seizures, astrocytoma, BCC, h/o systolic heart failure now resolved, severe AVR s/p bioprosthetic AVR in 2019, and atrial fibrillation, anticoagulated on Eliquis Patient admitted after a fall in the setting of recent influenza, found to have pneumonia, started on IV antibiotics. NUTRITION HISTORY Patient reports to eat a regular diet at baseline. He typically has a good appetite, however for the past week (since he has had the flu) his appetite has been very poor. His reports that he's essentially had nothing to eat since Sunday (10/10). Family denies concerns with unintentional weight loss, reports UBW of ~180-185 lbs. CURRENT NUTRITION ORDERS Diet: Moderate Consistent Carbohydrate and 1500 mL Fluid Restriction CURRENT INTAKE/TOLERANCE Per flowsheet documentation: 0-25% intakes are documented during admission. RD encouraged meal ordering and small frequent meals to increase appetite and intake. Offered oral nutrition supplements as well to boost nutrient intake. Patient and family are aware of fluid restriction and carb restriction - would prefer to have him trial oral nutrition supplements as he has no interest in food at this time. LABS Nutrition-relevant labs: Na 131, BG 293 MEDICATIONS Nutrition-relevant medications: insulin, lantus, dulcolax, senokot SYSTEM FINDINGS Skin/wounds: no edema or wounds noted I/Os: no BM noted during admission (dulcolax given) ANTHROPOMETRICS Height: 175.3 cm (5' 9) Most Recent Weight: 81.5 kg (179 lb 11.2 oz) IBW: 160 lbs % IBW: 112% BMI (kg/m??): Overweight BMI 25-29.9 Weight History: -3.2% in 4 months, not clinically significant. Family suspects mild wt loss r/t acute illness. Wt Readings from Last 20 Encounters: 10/15/24 81.5 kg (179 lb 11.2 oz) 07/11/24 84.5 kg (186 lb 3.2 oz) 06/16/24 83.9 kg (185 lb) 05/30/24 83.9 kg (185 lb) 07/19/23 85.7 kg (189 lb) 12/20/22 90.4 kg (199 lb 3.2 oz) 07/10/22 88 kg (194 lb) 03/10/22 79.2 kg (174 lb 9.6 oz) 12/26/21 83 kg (183 lb) 06/27/21 81.6 kg (180 lb) 04/20/21 79.7 kg (175 lb 12.8 oz) 04/08/21 80.3 kg (177 lb) 04/05/21 80.8 kg (178 lb 3.2 oz) 03/21/21 83.8 kg (184 lb 11.2 oz) 01/24/21 88 kg (194 lb) 12/22/20 87.5 kg (192 lb 14.4 oz) 07/01/20 82.2 kg (181 lb 3.2 oz) 06/03/20 81.6 kg (180 lb) 01/02/20 82.6 kg (182 lb) 10/28/19 82.6 kg (182 lb) ASSESSED NUTRITION NEEDS Dosing Weight: 81 kg, based on actual wt Estimated Energy Needs: 25 - 30 kcals/kg Justification: Maintenance Estimated Protein Needs: 1.2 - 1.5 grams of pro/kg Justification: Increased needs Estimated Fluid Needs: Per provider pending fluid status MALNUTRITION % Intake: </= 50% for >/= 5 days (severe) % Weight Loss: Weight loss does not meet criteria Subcutaneous Fat Loss: Orbital: Mild -> not using with one indicator present Muscle Loss: None observed Fluid Accumulation/Edema: None noted Malnutrition Diagnosis: Patient does not meet two of the established criteria necessary for diagnosing malnutrition but is at risk for malnutrition Malnutrition Present on Admission: No NUTRITION DIAGNOSIS Inadequate oral intake related to poor appetite with acute illness as evidenced by family report ofintake. INTERVENTIONS Medical food supplement therapy Nutrition counseling strategies Vitamin and mineral supplement therapy Goals Patient to consume >/=50% of nutritionally adequate meal trays TID, or the equivalent with supplements/snacks. Monitoring/Evaluation Progress toward goals will be monitored and evaluated per policy. Kathryn Hu MS, RD, LD Clinical Dietitian II YR Free Message Group: Dietitian [[place]] Office Pagers: 3rd floor/ICU: [phone] All other floors: [phone] Weekend/holiday: [phone] CTOR VIDEO documented in this encounter ED Notes * Dania Álvarez RN - 10/12/2024 7:17 PM CST [facility] ED Boarding Nurse Handoff Addendum Report: Date/time: 10/12/2024, 7:17 PM Neuro: Alert and Oriented x4 Activity: have not been out of bed yet. Generalized weakness. Telemetry Monitoring: Yes - normal sinus rhythm 89 Pain: complaining of 10/10 pain in their right flank/abdomen/back. Medication not available, medication given prior to writers time of care was ineffective. provider paged for alternate med option. Labs / Tests: blood glucose: 300. pt admitted with insulin pump, pump is no turned off. Provider ordered and 1x dose placed. GI: abdominal discomfort. : voiding small amounts. Using urinal in bed. O2: 2L NC, baseline RA LDA's: Peripheral Fluids: is Saline locked. Diet: Diabetic Discharge Disposition: TBD Vital signs (within last 30 minutes): Vitals: 10/12/24 1645 10/12/24 1700 10/12/24 1840 10/12/24 1931 BP: 134/82 129/72 126/79 Pulse: 91 95 89 89 Resp: 26 Temp: 98.8 ??F (37.1 ??C) 98 ??F (36.7 ??C) TempSrc: Oral Oral SpO2: 92% 92% 95% 95% Weight: ED Boarding Nurse name: Dania Álvarez RN CTOR VIDEO * Maisha Thorpe RN - 10/12/2024 4:15 PM CST Bed: ED25 Expected date: Expected time: Means of arrival: Comments: [id number] CTOR VIDEO * Nara Argueta RN - 10/12/2024 4:03 PM CST Report given to Boarder nurse Indu. CTOR VIDEO * Aurora Whitlock RN - 10/12/2024 1:23 PM CST [facility] ED Nurse Handoff Report ED Chief complaint: Shortness of Breath and Fall . ED Diagnosis: Final diagnoses: Hyponatremia Pneumonia of both lower lobes due to infectious organism Weakness generalized RUQ abdominal pain Acute respiratory failure with hypoxia (H) Fall, initial encounter Allergies: Allergies Allergen Reactions Carbamazepine Rash Phenobarbital Phenytoin Rash high fever Valproic Acid Rash Procarbazine Rash Sulfa Antibiotics Rash Code Status: Full Code Activity level - Baseline/Home: independent. Activity Level - Current: assist of 1. Lift room needed: No. Bariatric: No Seed Expert Needed: No Isolation: No. Infection: Not Applicable. Respiratory status: Nasal cannula Vital Signs (within 30 minutes): Vitals: 10/12/24 1220 10/12/24 1230 10/12/24 1300 10/12/24 1310 BP: 114/66 106/65 103/63 114/75 Pulse: 84 82 78 84 Resp: 19 24 Temp: TempSrc: SpO2: 96% 95% 95% Weight: Cardiac Rhythm: , Pain level: Patient confused: No. Patient Falls Risk: patient and family education and activity supervised. Elimination Status: Due to void Patient Report - Initial Complaint: Shortness of breath, fall. Focused Assessment: Alena Rae is a 63 year old male with a history of type I diabetes, seizures, astrocytoma, basal cell carcinoma, chronic systolic heart failure, and atrial fibrillation, anticoagulated on Eliquis who presents with his to the Emergency Department for a fall. The patient's reports Alena fell last night (10/11/24) due to RLQ abdominal pain that is worsened with ambulation and began the night of 10/10/24. He also endorses neck pain at baseline and his reportsthey were sick 10/09/24. Denies loss of consciousness, dysuria, increased urinary frequency/urgency,hematuria, history of blood clots, oxygen use at baseline, or missed Eliquis doses. Abnormal Results: Labs Ordered and Resulted from Time of ED Arrival to Time of ED Departure COMPREHENSIVE METABOLIC PANEL - Abnormal Result Value Sodium 126 (*) Potassium 4.5 Carbon Dioxide (CO2) 26 Anion Gap 10 Urea Nitrogen 22.1 Creatinine 0.94 GFR Estimate >90 Calcium 9.0 Chloride 90 (*) Glucose 223 (*) Alkaline Phosphatase 93 AST 15 ALT 22 Protein Total 6.4 Albumin 3.9 Bilirubin Total 1.4 (*) CBC WITH PLATELETS AND DIFFERENTIAL - Abnormal WBC Count 14.4 (*) RBC Count 4.74 Hemoglobin 14.6 Hematocrit 40.9 MCV 86 MCH 30.8 MCHC 35.7 RDW 11.5 Platelet Count 180 % Neutrophils 86 % Lymphocytes 5 % Monocytes 8 % Eosinophils 0 % Basophils 0 % Immature Granulocytes 1 NRBCs per 100 WBC 0 Absolute Neutrophils 12.4 (*) Absolute Lymphocytes 0.7 (*) Absolute Monocytes 1.1 Absolute Eosinophils 0.0 Absolute Basophils 0.0 Absolute Immature Granulocytes 0.2 Absolute NRBCs 0.0 ISTAT GASES LACTATE VENOUS POCT - Abnormal Lactic Acid POCT 1.1 Bicarbonate Venous POCT 31 (*) O2 Sat, Venous POCT 56 (*) pCO2 Venous POCT 49 pH Venous POCT 7.40 pO2 Venous POCT 30 INFLUENZA A/B, RSV AND SARS-COV2 PCR - Normal Influenza A PCR Negative Influenza B PCR Negative RSV PCR Negative SARS CoV2 PCR Negative TROPONIN T, HIGH SENSITIVITY - Normal Troponin T, High Sensitivity 15 ISTAT CREATININE POCT - Normal Creatinine POCT 1.1 GFR, ESTIMATED POCT >60 ROUTINE UA WITH MICROSCOPIC TROPONIN T, HIGH SENSITIVITY ISTAT CREATININE POCT BLOOD CULTURE BLOOD CULTURE CT Chest (PE) Abdomen Pelvis w Contrast (Results Pending) CT Head w/o Contrast (Results Pending) Treatments provided: See MAR Family Comments: at bedside OBS brochure/video discussed/provided to patient: N/A ED Medications: Medications sodium chloride (PF) 0.9% PF flush 3 mL (has no administration in time range) sodium chloride (PF) 0.9% PF flush 3 mL (3 mLs Intracatheter Not Given 10/12/24 1121) HYDROmorphone (PF) (DILAUDID) injection 0.5 mg (0.5 mg Intravenous $Given 10/12/24 1251) azithromycin (ZITHROMAX) 500 mg in NS 250 mL intermittent infusion (500 mg Intravenous $New Bag 10/12/24 1317) sodium chloride 0.9% BOLUS 1,000 mL (0 mLs Intravenous Stopped 10/12/24 1208) sodium chloride for CT scan flush use (64 mLs Intravenous $Given 10/12/24 1212) iopamidol (ISOVUE-370) solution 500 mL (98 mLs Intravenous $Given 10/12/24 1212) cefTRIAXone (ROCEPHIN) 2 g vial to attach to NS 100 ml bag for ADULTS or NS 50 ml bag for PEDS (2 gIntravenous $New Bag 10/12/24 1248) Drips infusing: No For the majority of the shift this patient was Green. Interventions performed were N/A. Sepsis treatment initiated: Yes- blood cultures drawn x2 Cares/treatment/interventions/medications to be completed following ED care: see inpatient order set ED Nurse Name: Nara Argueta RN RECEIVING UNIT ED HANDOFF REVIEW Above ED Nurse Handoff Report was reviewed: Yes Reviewed by: Iza Jay RN on October 12, 2024 at 8:48 PM I Paulette called the ED to inform them the note was read: Yes 1:23 PM CTOR VIDEO CTOR VIDEO * Wilber Ndiaye MD - 10/12/2024 10:42 AM CST Emergency Department Note History of Present Illness Chief Complaint Shortness of Breath and Fall HPI Alena Rae is a 63 year old male with a history of type I diabetes, seizures, astrocytoma, basal cell carcinoma, chronic systolic heart failure, and atrial fibrillation, anticoagulated on Eliquis who presents with his to the Emergency Department for a fall. The patient's reports Alena fell last night (10/11/24) due to RLQ abdominal pain that is worsened with ambulation and began the night of 10/10/24. He also endorses neck pain at baseline and his reports they were sick 10/09/24. Denies loss of consciousness, dysuria, increased urinary frequency/urgency, hematuria, history of blood clots, oxygen use at baseline, or missed Eliquis doses. Independent Historian as detailed above. Review of External Notes I reviewed the patient's 07/11/[address] 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 After this valve replacement, Alena has a cerebrovascular accident and he developed A-fib and pericarditis. At this time, he did not display any ischemic symptoms and his EF was 60-70%. Past Medical History Medical History and Problem List Astrocytoma Bilateral carotid artery stenosis Basal cell carcinoma Chronic systolic heart failure Hyponatremia Nonrheumatic aortic valve stenosis JEFERSON Paroxysmal atrial fibrillation Seizures Type I diabetes with hyperglycemia Vasculogenic erectile dysfunction Medications Apixaban ANTICOAGULANT Aspirin 81 MG Atorvastatin Carvedilol Eszopiclone Ezetimibe Insulin aspart Insulin glargine Lisinopril lamoTRIgine metFORMIN tiZANidine Surgical History Appendectomy Mohs Brain surgery x2 Lasik Aortic valve replacement Tonsillectomy Uvulectomy Physical Exam Patient Vitals for the past 24 hrs: BP Temp Temp src Pulse Resp SpO2 Weight 10/12/24 1230 106/65 -- -- 82 -- -- -- 10/12/24 1220 114/66 -- -- 84 -- 96 % -- 10/12/24 1200 111/71 -- -- 81 24 96 % -- 10/12/24 1150 108/68 -- -- 84 19 99 % -- 10/12/24 1140 96/55 -- -- 74 29 99 % -- 10/12/24 1130 97/64 -- -- 82 29 95 % -- 10/12/24 1120 93/57 -- -- 80 24 96 % -- 10/12/24 1115 101/66 -- -- 86 21 94 % -- 10/12/24 1110 98/64 -- -- 86 30 93 % -- 10/12/24 1107 -- -- -- -- -- 95 % -- 10/12/24 1105 101/56 -- -- -- -- 92 % -- 10/12/24 1104 -- -- -- -- -- (!) 89 % -- 10/12/24 1045 113/67 -- -- 94 -- 95 % -- 10/12/24 1040 98/69 99.2 ??F (37.3 ??C) Oral 99 24 95 % 87.6 kg (193 lb 2 oz) Physical Exam General: Alert, appears well-developed and well-nourished. Cooperative. In mild distress HEENT: Head: Atraumatic Ears: External ears are normal Mouth/Throat: Oropharynx is without erythema or exudate and mucous membranes are moist. Eyes: Conjunctivae normal and EOM are normal. No scleral icterus. Pupils are equal, round, and reactive to light. CV: Normal rate, regular rhythm, normal heart sounds and radial pulses are 2+ and symmetric. Systolic murmur. Resp: Breath sounds are clear bilaterally Non-labored, no retractions or accessory muscle use GI: Abdomen is soft, no distension, RUQ tenderness. No rebound or guarding. No CVA tenderness bilaterally MS: Normal range of motion. No edema. Faint Right lower chest wall tenderness to palpation, no crepitus or step offs. Back atraumatic. No midline cervical, thoracic, or lumbar tenderness Skin: Warm and dry. No rash or lesions noted. Neuro: Alert. Globally weak, but moving all extremities. GCS: 15 Psych: Normal mood and affect. Diagnostics Lab Results Labs Ordered and Resulted from Time of ED Arrival to Time of ED Departure COMPREHENSIVE METABOLIC PANEL - Abnormal Result Value Sodium 126 (*) Potassium 4.5 Carbon Dioxide (CO2) 26 Anion Gap 10 Urea Nitrogen 22.1 Creatinine 0.94 GFR Estimate >90 Calcium 9.0 Chloride 90 (*) Glucose 223 (*) Alkaline Phosphatase 93 AST 15 ALT 22 Protein Total 6.4 Albumin 3.9 Bilirubin Total 1.4 (*) CBC WITH PLATELETS AND DIFFERENTIAL - Abnormal WBC Count 14.4 (*) RBC Count 4.74 Hemoglobin 14.6 Hematocrit 40.9 MCV 86 MCH 30.8 MCHC 35.7 RDW 11.5 Platelet Count 180 % Neutrophils 86 % Lymphocytes 5 % Monocytes 8 % Eosinophils 0 % Basophils 0 % Immature Granulocytes 1 NRBCs per 100 WBC 0 Absolute Neutrophils 12.4 (*) Absolute Lymphocytes 0.7 (*) Absolute Monocytes 1.1 Absolute Eosinophils 0.0 Absolute Basophils 0.0 Absolute Immature Granulocytes 0.2 Absolute NRBCs 0.0 ISTAT GASES LACTATE VENOUS POCT - Abnormal Lactic Acid POCT 1.1 Bicarbonate Venous POCT 31 (*) O2 Sat, Venous POCT 56 (*) pCO2 Venous POCT 49 pH Venous POCT 7.40 pO2 Venous POCT 30 INFLUENZA A/B, RSV AND SARS-COV2 PCR - Normal Influenza A PCR Negative Influenza B PCR Negative RSV PCR Negative SARS CoV2 PCR Negative TROPONIN T, HIGH SENSITIVITY - Normal Troponin T, High Sensitivity 15 ISTAT CREATININE POCT - Normal Creatinine POCT 1.1 GFR, ESTIMATED POCT >60 ROUTINE UA WITH MICROSCOPIC TROPONIN T, HIGH SENSITIVITY ISTAT CREATININE POCT BLOOD CULTURE BLOOD CULTURE Imaging CT Chest (PE) Abdomen Pelvis w Contrast (Results Pending) CT Head w/o Contrast (Results Pending) EKG ECG results from 10/12/24 EKG 12 lead Value Systolic Blood Pressure Diastolic Blood Pressure Ventricular Rate 88 Atrial Rate 88 OH Interval 154 QRS Duration 100 QT 348 QTc 421 P [place] 53 R AXIS 13 T [place] 49 Interpretation ECG Sinus rhythm Normal ECG When compared with ECG of 06/16/24 No significant change. Independent interpretation done by me at 1113. Independent Interpretation CT Head: No intracranial hemorrhage. ED Course Medications Administered Medications sodium chloride (PF) 0.9% PF flush 3 mL (has no administration in time range) sodium chloride (PF) 0.9% PF flush 3 mL (3 mLs Intracatheter Not Given 10/12/24 1121) HYDROmorphone (PF) (DILAUDID) injection 0.5 mg (0.5 mg Intravenous $Given 10/12/24 1251) cefTRIAXone (ROCEPHIN) 2 g vial to attach to NS 100 ml bag for ADULTS or NS 50 ml bag for PEDS (2 gIntravenous $New Bag 10/12/24 1248) azithromycin (ZITHROMAX) 500 mg in NS 250 mL intermittent infusion (has no administration in time range) sodium chloride 0.9% BOLUS 1,000 mL (1,000 mLs Intravenous $New Bag 10/12/24 1108) sodium chloride for CT scan flush use (64 mLs Intravenous $Given 10/12/24 1212) iopamidol (ISOVUE-370) solution 500 mL (98 mLs Intravenous $Given 10/12/24 1212) Procedures None Discussion of Management Admitting Hospitalist, Dr. Rboles ED Course ED Course as of 10/12/24 1256 Sun Oct 12, 2024 1046 I evaluated the patient, obtained history, and performed a physical exam as detailed above. 1255 I spoke with hospitalist Dr. Robles. Additional Documentation None Medical Decision Making / Diagnosis CMS Diagnoses: IV Antibiotics given and/or elevated Lactate of 1.1 and no sepsis note found - Delete this reminder and enter the sepsis note or '.edcms' before signing chart.>>>The patient has signs of sepsis Sepsis ED evaluation The patient has signs of sepsis as evidenced by: 1. Presence of 2 SIRS criteria, suspected infection, AND 2. Organ dysfunction: Sepsis work up in progress. Will continue to monitor for signs of organ dysfunction Sepsis Care Initiation: Starting at 1:25 PM on 10/12/24, until specified. Prior to this documentation, sepsis, severe sepsis, or septic shock was NOT thought to be a significant cause of illness. This order represents the first time infection was seriously considered to be affecting the patient. Lactic Acid Results: Recent Labs Lab Test 10/12/24 1059 07/04/19 1325 LACT 1.1 0.9 3 Hour Bundle 6 Hour Bundle (Reassessment) Blood Cultures before IV Antibiotics: Yes Antibiotics given: see below Prehospital fluid volume (mL): Total fluids given (ED +Pre-hospital): The patient responded to a lesser volume of IV fluids. The initial volume ordered was 1000 mL. Repeat Lactic Acid Level: Ordered by reflex for 2 hours after initial lactic acid collection. Vasopressors: MAP>65 after initial IVF bolus, will continue to monitor fluid status and vital signs. Repeat perfusion exam: I attest to having performed a repeat sepsis exam and assessment of perfusion at 1:38 PM . BMI Readings from Last 1 Encounters: 10/12/24 28.11 kg/m?? Anti-infectives (From admission through now) Start Dose/Rate Route Frequency Ordered Stop 10/12/24 1235 cefTRIAXone (ROCEPHIN) 2 g vial to attach to NS 100 ml bag for ADULTS or NS 50 ml bagfor PEDS 2 g over 30 Minutes Intravenous ONCE 10/12/24 1231 10/12/24 1318 10/12/24 1235 azithromycin (ZITHROMAX) 500 mg in NS 250 mL intermittent infusion 500 mg over 1 Hours Intravenous ONCE 10/12/[address] for PE was ordered because the patient is high risk for pulmonary embolism. REDD Rae is a 63 year old male who presents due to right upper quadrant abdominal pain sharmila fall earlier today at home. He does have a complex past medical history pertinent for aortic valve replacement and is chronically on Eliquis. He is compliant with his anticoagulation. Patient did have a leukocytosis on laboratory work of 14.4. Mildly hyponatremic at 126. Initial EKG showed no concerning arrhythmias nor ischemic changes. Initial troponin returned at 15 and lower suspicion for ACS. I reviewed the patient's CT scan of the chest abdomen pelvis given pain in the right upper quadrant and right lower chest wall. No evidence of acute rib fracture although there is evidence of bilateral infiltrates suspicious for community acquired pneumonia. We started the patient on antibiotics with Rocephin and azithromycin after blood cultures were obtained. CT image of the head reveals no evidence of intracranial hemorrhage. Final radiology report of the chest abdomen pelvis is pending attime of admission. Patient is mildly hypoxic and this could be multifactorial either related to pneumonia and/or pain medications given while in the emergency department. Given hypoxia in the settingof suspected bilateral pneumonia and recent fall with weakness we will plan for hospitalization. I spoke with Dr. Martel who agreed to admission Disposition The patient was admitted to the hospital. Diagnosis ICD-10-CM 1. Pneumonia of both lower lobes due to infectious organism J18.9 2. Hyponatremia E87.1 3. Weakness generalized R53.1 4. RUQ abdominal pain R10.11 5. Acute respiratory failure with hypoxia (H) J96.01 6. Fall, initial encounter W19.XXXA Discharge Medications New Prescriptions No medications on file Scribe Disclosure: I, Pj Odom, am serving as a scribe at 11:14 AM on 10/12/2024 to document services personally performed by Wilber Ndiaye MD based on my observations and the provider's statements to me. Wilber Ndiaye MD 10/13/24 1206 CTOR VIDEO * Zulema Hurst RN - 10/12/2024 10:38 AM CST On Eliquis for valve replacement. Fall last night and frequent recent falls. Pt c/o 05/29 pointing at R lower lobe and reports SOB. Cough. Denies specific CP. ABC in tact. A/OX4 Triage Assessment (Adult) Row Name 10/12/24 1037 Triage Assessment Airway WDL WDL Respiratory WDL Respiratory WDL X;cough Skin Circulation/Temperature WDL Skin Circulation/Temperature WDL WDL Cardiac WDL Cardiac WDL X Peripheral/Neurovascular WDL Peripheral Neurovascular WDL WDL Cognitive/Neuro/Behavioral WDL Cognitive/Neuro/Behavioral WDL WDL CTOR VIDEO documented in this encounter Miscellaneous Notes * Plan of Care - Elli Spear PT - 10/29/2024 2:00 PM CDT Physical Therapy Discharge Summary Reason for therapy discharge: Discharged to acute rehabilitation facility. Progress towards therapy goal(s). See goals on Care Plan in [facility] electronic health record for goal details. Goals not met. Barriers to achieving goals: discharge from facility. Therapy recommendation(s): Continued therapy is recommended. Rationale/Recommendations: PT in the [facility] setting to maximize indep with functional mobility. Pt will tolerate intensive therapy levels, with supportive family and living environment, making [facility] the optimal discharge location. . * Plan of Care - Zee Hurst OTR - 10/29/2024 2:00 PM CDT Occupational Therapy Discharge Summary Reason for therapy discharge: Discharged to acute rehabilitation facility. Progress towards therapy goal(s). See goals on Care Plan in Epic electronic health record for goal details. Goals partially met. Barriers to achieving goals: discharge from facility. Therapy recommendation(s): Continued therapy is recommended. Rationale/Recommendations: Pt functioning below baseline and willbenefit from continued intensive rehab to progress pt safety and independence. * Care Plan - Leena Dowling RN - 10/29/2024 12:03 PM CDT 10/29/24 1203 Fall Event Patient Assessed By nurse;provider Name of Provider Notified Shavon Family/Designated Caregiver Notified of Fall No Fall Prevention Plan Updated Yes Reason Family/Designated Caregiver Not Notified Coming in soon * Interim Summary - Tiarra Arnold CM - 10/29/2024 9:55 AM CDT [facility] Pre-Admission Screen Referral Source: [place] [id number] [facility] [address]- Admit date to referring facility: 10/12/2024 Physical Medicine and Rehab Consult Completed: No Rehab Diagnosis: Stroke Ischemic 01.1 (L) Body Involvement (R) Brain: Acute ischemic stroke of right frontal lobe possibly due to cardioembolism despite anticoagulation; some concern for hypercoagulability of malignancy given liver lesions Justification for Acute Inpatient Rehabilitation Alena Rae is a 63 year old male with history of type I diabetes, seizures, 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 He presented to the ED on 10/12/2024 after a fall with L sided weakness. Of note, ptrecently had influenza. Emergency department evaluation showed hypoxia with need of oxygen at 2 L/min. Chest CT showed right lower lung pneumonia, R pleural effusion and multiple liver lesions. He was started on Rocephin and Zithromax and admitted to the hospital for further cares. Oxygen needs increased to 5 L/min. Chest x-ray on 10/14 showed increasing right pleural effusion. He was sent for thoracentesis. Chest tube was placed on 10/16 for loculated effusion. Received intra-tube TPA BID 10/20-10/23 to improve drainage and tube was removed on 10/24. Thoracic surgery was consulted and at this time no further intervention planned for pleural effusion and residual atelectasis/trapped lung on CT imaging. His hospital course has been complicated by recrudescence of LUE/LLE weakness, acute hypoxic respiratory failure, R pleural effusion, afib with RVR with rates into 140's, hypotension, needing amiodarone infusion. Patient spontaneously converted to sinus rhythm at about 10 AM on 10/15/2024. Neurology was consulted on 10/27 due to continued L sided weakness and previous MRI result that recommended repeat imaging due to showing Interval development of 1 cm linear focus of restricted diffusion p osterior to the right frontal resection cavity. Differential considerations include acute ischemia,posttreatment change, or recurrence. Neurology diagnosed an acute ischemic stroke of right frontal lobe possibly due to cardioembolism despite anticoagulation; some concern for hypercoagulability of malignancy given liver lesions. Pt has had episodes of A fib with RVR with spontaneous conversion toNSR. The patient is now stable and ready for discharge to an [facility] level of care for intensive therapies not available in a lesser level of care including OT/PT, ongoing medical management by PMR at least 3times per week, and 12/03 rehab nursing care. At baseline patient lives with his in a multi-level home and is independent in all ADL, mobility and I/ADL despite very mild residual fine motor deficit on L due to astrocytoma. 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 Currently, he is far below baseline and requires assist of 1-2 for all ADL and functional mobility. Patient requires an intensive inpatient rehab program toaddress the following acute impairments: L hemiplegia, impaired activity tolerance, impaired balance, impaired coordination, impaired ROM, and impaired strength. Inpatient rehab with intensive PT andOT is indicated to maximize independence and safety for home, return to the community. Current Active Medical Management Needs/Risks for Clinical Complications The patient requires the high level of rehabilitation physician supervision that accompanies the provision of intensive rehabilitation therapy. The patient needs the services of the rehabilitation physician to assess the patient medically and functionally and to modify the course of treatment as needed to maximize the patient's capacity to benefit from the rehabilitation process. Neuro: In setting of acute stroke, R frontal lobe astrocytoma with resection, seizure disorder. Pt is at risk for recurrent stroke, neurologic decline, falls with injury. Assess for neuro changes. Provide stroke education. Continue seizure precautions. Continue MANAGER OF SOFTWARE apixaban 5 mg BID Cardiovascular: In setting of afib with RVR, assess cardiovascular response to increased activity demands. Pt is at risk for arrhythmias, cardiovascular events and activity intolerance.Transitioned from amiodarone infusion to oral amiodarone for 1 month on 10/16. Transitioned from carvedilol 12.5 mgtwice daily to Toprol-XL 50 mg twice daily. Continue MANAGER OF SOFTWARE DOAC. Ongoing assessment and adjustment ofmedications as clinically indicated. Goal is normotension, avoid hypotension in the setting of ICAD. Trend magnesium and potasium. Ziopatch or future loop recorder recommended. Pulmonary: In setting of acute hypoxic respiratory failure and complex R pleural effusion. Pt is atrisk for respiratory decline and requires weaning from supplemental O2. Chest tube placed on 10/16, removed on 10/24. Thoracic surgery consulted for residual pleural effusion and atelectasis/trapped lung following chest tube drainage. At this time they do not recommend any further intervention, and will arrange follow-up in 1 month with repeat chest CT at that time Hyponatremia: Acute on chronic hyponatremia, at risk for dizziness, confusion, falls. Assess fluid and electrolyte balance. Trend BMP. Continue fluid restriction. Appears to have a component of component of SIADH. Insulin dependent diabetes: Pt is at risk for continued hyperglycemia. Chronically on metformin andalso has an insulin pump. Normally manages with insulin pump but has not been eating well or feeling well so this was stopped during hospital stay. Increased Lantus insulin to 30 units daily; prandial NovoLog to 2 unit for every 10 g of carbohydrates; Continue high intensity sliding scale. BG has been as high as 347 in the last 24 hours. Infectious disease: Patient will require ongoing assessment of signs/symptoms of infection in setting of recent Has received Rocephin and Zithromax. This was changed to Zosyn on 10/14. Currently on IVZosyn since 10/14; stop date 10/28. Patient is at risk for falls due to pain, gait instability, impaired balance, decreased strength, decreased activity tolerance. Past Medical/Surgical History Surgery in the past 100 days: No Additional relevant past medical history: JEFERSON, liver lesions seen on MRI years ago that have never been biopsied. This is recommended to be done as an OP after clinically improved. 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 SELF-CARE Usual Activity Tolerance: good Equipment Currently Used at Home: none Activity/Exercise/Self-Care Comment: Independent with basic ADLS and mobility at baseline Level of Function: GG Scale (Section GG Functional Ability and Goals; [facility]'s [facility]ENDEZ Version 3.0 Manual effective 05.20.2019): PT Current Function Goals for Rehab Bed Rolling 4 Supervision or touching assistance 6 Independent Supine to Sit 4 Supervision or touching assistance (CGA) 6 Independent Sit to Stand 3 Partial/moderate assistance 6 Independent Transfer 3 Partial/moderate assistance 6 Independent Ambulation 1 Dependent (Min A + chair follow) 6 Independent Stairs 88 Not attempted due to safety 6 Independent OT Current Function Goals for Rehab Feeding 5 Setup or clean-up assistance 6 Independent Grooming 4 Supervision or touching assistance (CGA) 6 Independent Bathing Not completed 6 Independent Upper Body Dressing Not completed 6 Independent Lower Body Dressing 3 Partial/moderate assistance 6 Independent Toileting 3 Partial/moderate assistance 6 Independent Toilet Transfer 4 Supervision or touching assistance(CGA with grab bar) 6 Independent Tub/Shower Transfer 88 Not attempted due to safety 6 Independent Cognition Impaired Independent SHOT COAT TENDER Current Function Goals for Rehab Swallow Not Impaired Not applicable Communication Not Impaired Not applicable Current Diet: 0-Thin, 7-Regular, and Diabetic; 2000 ML fluid restriction Summary Statement: Pt is a 63 year old male who is typically very independent with all ADL, IADL and mboility and lives at home with his spouse, works, drives. Currently, pt is far below baseline due to 17 day complex hospital course with Acute R frontal lobe stroke, pna, pleural effusion, encephalopathy, AHRF, hyperglycemia, and afib with RVR. He requires continued medical management at least 3 times per week for these medical conditions. He is also significantly below his functional baseline, now requiring assist of 1-2. Pt requires CGA for bed mobility, with cues and increased time, Min A for transfers, and Min A of 1 plus close chair follow of 2nd person for gait.. He requires rest breaks and checking of his oxygen levels due to desaturations with activity. L hand strength and coordination is impaired; OT is working on fine motor and bilateral hand tasks coordination. He needs assist of 1 for all ADL.OT should also screen cognition and involve SHOT COAT TENDER if any major deficits are noted. He has good rehab potential, with excellent support and motivation for rehab. Anticipate pt to discharge home with spouse in 10 days with home vs OP cares. Expected Therapies and Services Required During Inpatient Rehab Admission Intensity of Therapy: Patient requires intensive therapies not available in a lesser level of care.Patient is motivated, making gains, and can tolerate 3 hours of therapy a day. Physical Therapy: 90 minutes per day, 6 days a week for 10 days Occupational Therapy: 90 minutes per day, 6 days a week for 10 days Speech and Language Therapy: SHOT COAT TENDER not involved Rehabilitation Nursing Needs: Patient requires 24 hour Rehab Nursing to manage vitals, medication education, positioning, carryover of new rehab techniques, care coordination, skin integrity, blood sugar management, diabetes education, assess neurologic status, pain management, and provide safe environment for patient at falls risk. Precautions/restrictions/special needs: Precautions: fall precautions; seizure precautions Restrictions: NA Special Needs: oxygen Expected Level of Improvement: Mod (I) with ADL, IADL and mobility around the home Expected Length of time to achieve: 10 days Anticipated Discharge Needs: Anticipated Discharge Destination: Home Anticipated Discharge Support: Family member 12/03 support available : Yes Identified caregiver(s): Spouse Anticipated Discharge Needs: Home with homecare and Home with outpatient therapy Identified challenges/barriers: Stairs in the home Liaison signature/date/time: Sabiha Arnold OTR/L 10/29/24 9:55 AM Physician statement of review and agreement: I have reviewed and am in agreement of the need for IRF stay to address above functional and medical needs. In addition to above statements address, Patient requires intensive active and ongoing therapeutic intervention and multiple therapies; Patient requires medical supervision; Expected to actively participate in the intensive rehab program; Sufficiently stable to actively participate; Expectation for measurable improvement in functional capacity or adaption to impairments. MD signature/date/time: Cosigned by Noemi Barksdale MD at 10/29/2024 12:31 PM CDT Associated attestation - Noemi Barksdale MD - 10/29/2024 12:31 PM CDT I have reviewed and agree with the recommendations and documentation in this PAS note. 63 y/o M admitted with hypoxic respiratory failure due to PNA and loculated effusions, with course complicated by L hemiparesis and MRI demonstrating acute ischemic CVA of the R frontal lobe. Will need PT and OT for 90 minute per day, 6 days per week, for an estimated 10 day LOS. * Plan of Care - Anabelle Friedman RN - 10/29/2024 6:36 AM CDT Temp: 98.5 ??F (36.9 ??C) Temp src: Oral BP: 100/60 Pulse: 66 Resp: 16 SpO2: 98 % O2 Device: Nasal cannula Oxygen Delivery: 1/2 LPM A&Ox4. VSS, placed 1/2 L via NC overnight. Up 2A GB walker. Completed IV abx. Tele: SR, continues on amiodarone and metoprolol. BG 147, 97, and recheck again at 0500 95 (patient did say he drank a 16g CHO drink after 0200 BG check. Also requested apple juice after 0500 check). PRN pain medication effective last night. planning to transport today [phone] to TCU. Goal Outcome Evaluation: Plan of Care Reviewed With: patient Overall Patient Progress: improvingOverall Patient Progress: improving Outcome Evaluation: Dc to TCU today. transporting. PRN pain/spasm medication effective last night. Problem: Pain Acute Goal: Optimal Pain Control and Function Outcome: Progressing Intervention: Develop Pain Management Plan Recent Flowsheet Documentation Taken 10/28/20242199 by Anabelle Friedman RN Pain Management Interventions: quiet environment facilitated rest Taken 10/28/20242104 by Anabelle Friedman RN Pain Management Interventions: medication (see MAR) Intervention: Prevent or Manage Pain Recent Flowsheet Documentation Taken 10/28/20242139 by Anabelle Friedman RN Medication Review/Management: medications reviewed Problem: Pneumonia Goal: Fluid Balance Outcome: Progressing Goal: Resolution of Infection Signs and Symptoms Outcome: Progressing Goal: Effective Oxygenation and Ventilation Outcome: Progressing Intervention: Promote Airway Secretion Clearance Recent Flowsheet Documentation Taken 10/28/20242139 by Anabelle Friedman RN Cough And Deep Breathing: done independently per patient Activity Management: activity adjusted per tolerance ambulated in room up in chair Intervention: Optimize Oxygenation and Ventilation Recent Flowsheet Documentation Taken 10/29/2024 0544 by Anabelle Friedman RN Head of Bed (HOB) Positioning: HOB at 20-30 degrees Taken 10/29/2024 0100 by Anabelle Friedman RN Head of Bed (HOB) Positioning: HOB at 20-30 degrees Taken 10/28/20242139 by Anabelle Friedman RN Head of Bed (HOB) Positioning: HOB at 20-30 degrees Problem: Comorbidity Management Goal: Blood Glucose Levels Within Targeted Range Outcome: Progressing Intervention: Monitor and Manage Glycemia Recent Flowsheet Documentation Taken 10/28/20242139 by Anabelle Friedman RN Medication Review/Management: medications reviewed Problem: Adult Inpatient Plan of Care Goal: Plan of Care Review Description: The Plan of Care Review/Shift note should be completed every shift. The Outcome Evaluation is a brief statement about your assessment that the patient is improving, declining, or no change. This information will be displayed automatically on your shift note. Outcome: Progressing Flowsheets (Taken 10/29/2024 0635) Outcome Evaluation: Dc to TCU today. transporting. PRN pain/spasm medication effective last night. Plan of Care Reviewed With: patient Overall Patient Progress: improving Goal: Patient-Specific Goal (Individualized) Description: You can add care plan individualizations to a care plan. Examples of Individualizationmight be: Parent requests to be called daily at 9am for status, I have a hard time hearing out of my right ear, or Do not touch me to wake me up as it startles me. Outcome: Progressing Goal: Absence of Hospital-Acquired Illness or Injury Outcome: Progressing Intervention: Identify and Manage Fall Risk Recent Flowsheet Documentation Taken 10/29/2024 05 by Anabelle Friedman RN Safety Promotion/Fall Prevention: safety round/check completed Taken 10/29/2024329 by Anabelle Friedman RN Safety Promotion/Fall Prevention: safety round/check completed Taken 10/29/202499 by Anabelle Friedman RN Safety Promotion/Fall Prevention: safety round/check completed Taken 10/28/20242139 by Anabelle Friedman RN Safety Promotion/Fall Prevention: activity supervised clutter free environment maintained nonskid shoes/slippers when out of bed room near nurse's station room organization consistent safety round/check completed supervised activity Intervention: Prevent Skin Injury Recent Flowsheet Documentation Taken 10/29/2024543 by Anabelle Friedman RN Body Position: position changed independently Taken 10/29/202499 by Anabelle Friedman RN Body Position: position changed independently Taken 10/28/20242139 by Anabelle Friedman RN Body Position: position changed independently Intervention: Prevent and Manage VTE (Venous Thromboembolism) Risk Recent Flowsheet Documentation Taken 10/29/2024543 by Anabelle Friedman RN VTE Prevention/Management: (Eliquis) other (see comments) Taken 10/28/20242139 by Anabelle Friedman RN VTE Prevention/Management: (eliquis) other (see comments) Intervention: Prevent Infection Recent Flowsheet Documentation Taken 10/29/2024543 by Anabelle Friedman RN Infection Prevention: hand hygiene promoted rest/sleep promoted single patient room provided Taken 10/28/20242139 by Anabelle Friedman RN Infection Prevention: hand hygiene promoted rest/sleep promoted single patient room provided Goal: Optimal Comfort and Wellbeing Outcome: Progressing Intervention: Monitor Pain and Promote Comfort Recent Flowsheet Documentation Taken 10/28/20242199 by Anabelle Friedman RN Pain Management Interventions: quiet environment facilitated rest Taken 10/28/20242104 by Anabelle Friedman RN Pain Management Interventions: medication (see MAR) Intervention: Provide Person-Centered Care Recent Flowsheet Documentation Taken 10/29/2024 0544 by Anabelle Friedman RN Trust Relationship/Rapport: care explained choices provided emotional support provided empathic listening provided questions answered questions encouraged reassurance provided Goal: Readiness for Transition of Care Outcome: Progressing * Plan of Care - Mckenna Szymanski RN - 10/28/2024 4:08 AM CDT BP 131/75 Pulse 81 Temp 99.3 ??F Resp 20 SpO2 94% Patient is alert and oriented x4, no complaints of pain, assist of 2 with gait belt and walker to bedside commode, on a fluid restriction diet 2,000mL, regular diet, able to swollow pills whole with water, slept well during the night. Watch said patient was in a-fib, no chest pain, or palpitations but sweaty and irregular heart beat. Cross cover gave orders for tele and it did confirm a-fib RVR but then shortly after converted back to SR. Order to do an EKG. Goal Outcome Evaluation: Plan of Care Reviewed With: patient Overall Patient Progress: improvingOverall Patient Progress: improving Outcome Evaluation: Patient is alert and oriented x4, no complaints of pain, assist of 2 with gait belt and walker to bedside commode, on a fluid restriction diet 2,000mL, regular diet, able to swollow pills whole with water, slept well during the night. Problem: Adult Inpatient Plan of Care Goal: Plan of Care Review Description: The Plan of Care Review/Shift note should be completed every shift. The Outcome Evaluation is a brief statement about your assessment that the patient is improving, declining, or no change. This information will be displayed automatically on your shift note. Recent Flowsheet Documentation Taken 10/28/2024 0405 by Mckenna Szymanski RN Outcome Evaluation: Patient is alert and oriented x4, no complaints of pain, assist of 2 with gait belt and walker to bedside commode, on a fluid restriction diet 2,000mL, regular diet, able to swollow pills whole with water, slept well during the night. Plan of Care Reviewed With: patient Overall Patient Progress: improving Goal: Absence of Hospital-Acquired Illness or Injury Intervention: Identify and Manage Fall Risk Recent Flowsheet Documentation Taken 10/27/20242341 by Mckenna Szymanski RN Safety Promotion/Fall Prevention: activity supervised clutter free environment maintained lighting adjusted mobility aid in reach nonskid shoes/slippers when out of bed patient and family education room near nurse's station room organization consistent safety round/check completed Intervention: Prevent Skin Injury Recent Flowsheet Documentation Taken 10/27/20242341 by Mckenna Szymanski RN Body Position: position changed independently Intervention: Prevent and Manage VTE (Venous Thromboembolism) Risk Recent Flowsheet Documentation Taken 10/27/20242341 by Mckenna Szymanski RN VTE Prevention/Management: SCDs off (sequential compression devices) Intervention: Prevent Infection Recent Flowsheet Documentation Taken 10/27/20242341 by Mckenna Szymanski RN Infection Prevention: cohorting utilized hand hygiene promoted rest/sleep promoted single patient room provided * Plan of Care - Anthony Huang RN - 10/27/2024 10:18 PM CDT A&Ox4. Reg diet 1L fluid restriction. O2 2L NC. BG ac/hs. On IV zosyn. Gave PRN for cough. Tremor/weakness/shaky when up to commode. Ax2 bedside commode w GB. Plan to discharge to rehab when medically ready. Goal Outcome Evaluation: Plan of Care Reviewed With: patient Overall Patient Progress: improvingOverall Patient Progress: improving Outcome Evaluation: Ax2 GB bedside commode. Tremors/shaky when up. Problem: Pain Acute Goal: Optimal Pain Control and Function Outcome: Progressing Intervention: Prevent or Manage Pain Recent Flowsheet Documentation Taken 10/27/2024 1614 by Anthony Huang RN Bowel Elimination Promotion: commode/bedpan at bedside ambulation promoted Medication Review/Management: medications reviewed Problem: Pneumonia Goal: Fluid Balance Outcome: Progressing Goal: Resolution of Infection Signs and Symptoms Outcome: Progressing Goal: Effective Oxygenation and Ventilation Outcome: Progressing Problem: Comorbidity Management Goal: Blood Glucose Levels Within Targeted Range Outcome: Progressing Intervention: Monitor and Manage Glycemia Recent Flowsheet Documentation Taken 10/27/20241613 by Anthony Huang RN Medication Review/Management: medications reviewed Problem: Adult Inpatient Plan of Care Goal: Plan of Care Review Description: The Plan of Care Review/Shift note should be completed every shift. The Outcome Evaluation is a brief statement about your assessment that the patient is improving, declining, or no change. This information will be displayed automatically on your shift note. Outcome: Progressing Flowsheets (Taken 10/27/2024 2210) Outcome Evaluation: Ax2 GB bedside commode. Tremors/shaky when up. Plan of Care Reviewed With: patient Overall Patient Progress: improving Goal: Patient-Specific Goal (Individualized) Description: You can add care plan individualizations to a care plan. Examples of Individualizationmight be: Parent requests to be called daily at 9am for status, I have a hard time hearing out of my right ear, or Do not touch me to wake me up as it startles me. Outcome: Progressing Goal: Absence of Hospital-Acquired Illness or Injury Outcome: Progressing Intervention: Identify and Manage Fall Risk Recent Flowsheet Documentation Taken 10/27/20241613 by Anthony Huang RN Safety Promotion/Fall Prevention: safety round/check completed Intervention: Prevent Skin Injury Recent Flowsheet Documentation Taken 10/27/20241613 by Anthony Huang RN Body Position: position changed independently Intervention: Prevent and Manage VTE (Venous Thromboembolism) Risk Recent Flowsheet Documentation Taken 10/27/20241613 by Anthony Huang RN VTE Prevention/Management: SCDs off (sequential compression devices) Intervention: Prevent Infection Recent Flowsheet Documentation Taken 10/27/20241613 by Anthony Huang RN Infection Prevention: hand hygiene promoted single patient room provided Goal: Optimal Comfort and Wellbeing Outcome: Progressing Goal: Readiness for Transition of Care Outcome: Progressing * Plan of Care - Magno Dawson RN - 10/27/2024 1:40 PM CDT Vss A&Ox4 up to chair with meals. Right chest dressing CDI. Fine crackles on the right side. Pain control with lido patch and voltaren. Ambulated oakes with PT sats 95% on 1LNC. CT head and neck pending. Problem: Pain Acute Goal: Optimal Pain Control and Function Outcome: Progressing Intervention: Prevent or Manage Pain Recent Flowsheet Documentation Taken 10/27/2024899 by Magno Dawson RN Bowel Elimination Promotion: commode/bedpan at bedside Problem: Pneumonia Goal: Fluid Balance Outcome: Progressing Goal: Resolution of Infection Signs and Symptoms Outcome: Progressing Goal: Effective Oxygenation and Ventilation Outcome: Progressing Intervention: Promote Airway Secretion Clearance Recent Flowsheet Documentation Taken 10/27/2024899 by Magno Dawson RN Cough And Deep Breathing: done independently per patient Activity Management: activity adjusted per tolerance ambulated in room up in chair Problem: Comorbidity Management Goal: Blood Glucose Levels Within Targeted Range Outcome: Progressing Problem: Adult Inpatient Plan of Care Goal: Plan of Care Review Description: The Plan of Care Review/Shift note should be completed every shift. The Outcome Evaluation is a brief statement about your assessment that the patient is improving, declining, or no change. This information will be displayed automatically on your shift note. Outcome: Progressing Flowsheets (Taken 10/27/2024 1008) Outcome Evaluation: ambulated oakes Plan of Care Reviewed With: patient spouse Overall Patient Progress: improving Goal: Patient-Specific Goal (Individualized) Description: You can add care plan individualizations to a care plan. Examples of Individualizationmight be: Parent requests to be called daily at 9am for status, I have a hard time hearing out of my right ear, or Do not touch me to wake me up as it startles me. Outcome: Progressing Goal: Absence of Hospital-Acquired Illness or Injury Outcome: Progressing Intervention: Identify and Manage Fall Risk Recent Flowsheet Documentation Taken 10/27/2024 09 by Magno Dawson RN Safety Promotion/Fall Prevention: safety round/check completed nonskid shoes/slippers when out of bed lighting adjusted increase visualization of patient increased rounding and observation clutter free environment maintained activity supervised supervised activity Goal: Optimal Comfort and Wellbeing Outcome: Progressing Intervention: Provide Person-Centered Care Recent Flowsheet Documentation Taken 10/27/2024 0900 by Magno Dawson RN Trust Relationship/Rapport: care explained choices provided emotional support provided empathic listening provided questions answered questions encouraged reassurance provided Goal: Readiness for Transition of Care Outcome: Progressing Goal Outcome Evaluation: Plan of Care Reviewed With: patient, spouse Overall Patient Progress: improvingOverall Patient Progress: improving Outcome Evaluation: ambulated oakes * Plan of Care - Tamera Kim RN - 10/27/2024 4:39 AM CDT A&O x4. Assist of 1-2, GB, walker. Uses urinal. On Mg and Phos protocols, Am rechecks. On 1/2L NC, no O2 at baseline. On IV zosyn q6 hr. Prn tessalon given for cough, with some improvement. L. PIV SL. On amiodarone PO. Plan to discharge to ARU, potentially at 2 pm today, will provide transport. Goal Outcome Evaluation: Plan of Care Reviewed With: patient Overall Patient Progress: improvingOverall Patient Progress: improving Outcome Evaluation: On 1/2 L NC. No O2 at baseline. Denies pain. PRN tessalon given for cough, withsome improvement. Problem: Pain Acute Goal: Optimal Pain Control and Function 10/27/2024438 by Tamera Kim RN Outcome: Progressing 10/27/2024436 by Tamera Kim RN Outcome: Progressing Intervention: Prevent or Manage Pain Recent Flowsheet Documentation Taken 10/26/2024 2330 by Tamera Kim RN Medication Review/Management: medications reviewed Problem: Pneumonia Goal: Fluid Balance 10/27/2024438 by Tamera Kim, MENDEL Outcome: Progressing 10/27/2024436 by Tamera Kim RN Outcome: Progressing Goal: Resolution of Infection Signs and Symptoms 10/27/2024438 by Tamera Kim RN Outcome: Progressing 10/27/2024436 by Tamera Kim RN Outcome: Progressing Goal: Effective Oxygenation and Ventilation 10/27/2024438 by Tamera Kim RN Outcome: Progressing 10/27/2024436 by Tamera Kim RN Outcome: Progressing Intervention: Promote Airway Secretion Clearance Recent Flowsheet Documentation Taken 10/26/20242329 by Tamera Kim RN Cough And Deep Breathing: done independently per patient Activity Management: activity adjusted per tolerance Intervention: Optimize Oxygenation and Ventilation Recent Flowsheet Documentation Taken 10/26/20242329 by Tamera Kim RN Head of Bed (HOB) Positioning: HOB at 20-30 degrees Problem: Comorbidity Management Goal: Blood Glucose Levels Within Targeted Range 10/27/2024438 by Tamera Kim RN Outcome: Progressing 10/27/2024436 by Tamera Kim RN Outcome: Progressing Intervention: Monitor and Manage Glycemia Recent Flowsheet Documentation Taken 10/26/20242329 by Tamera Kim RN Medication Review/Management: medications reviewed Problem: Adult Inpatient Plan of Care Goal: Plan of Care Review Description: The Plan of Care Review/Shift note should be completed every shift. The Outcome Evaluation is a brief statement about your assessment that the patient is improving, declining, or no change. This information will be displayed automatically on your shift note. 10/27/2024438 by Tamera Kim RN Outcome: Progressing Flowsheets (Taken 10/27/2024438) Outcome Evaluation: On 1/2 L NC. No O2 at baseline. Denies pain. PRN tessalon given for cough, withsome improvement. Plan of Care Reviewed With: patient Overall Patient Progress: improving 10/27/2024436 by Tamera Kim RN Outcome: Progressing Flowsheets (Taken 10/27/2024436) Outcome Evaluation: On 1/2 L NC. No O2 at baseline. Denies pain. PRN tessalon given for cough, withsome improvement. Plan of Care Reviewed With: patient Goal: Patient-Specific Goal (Individualized) Description: You can add care plan individualizations to a care plan. Examples of Individualizationmight be: Parent requests to be called daily at 9am for status, I have a hard time hearing out of my right ear, or Do not touch me to wake me up as it startles me. 10/27/2024438 by Tamera Kim RN Outcome: Progressing 10/27/2024436 by Tamera Kim RN Outcome: Progressing Goal: Absence of Hospital-Acquired Illness or Injury 10/27/2024438 by Tamera Kim RN Outcome: Progressing 10/27/2024436 by Tamera Kim RN Outcome: Progressing Intervention: Identify and Manage Fall Risk Recent Flowsheet Documentation Taken 10/26/20242329 by Tamera Kim RN Safety Promotion/Fall Prevention: safety round/check completed Intervention: Prevent Skin Injury Recent Flowsheet Documentation Taken 10/26/20242329 by Tamera Kim RN Body Position: position changed independently Intervention: Prevent and Manage VTE (Venous Thromboembolism) Risk Recent Flowsheet Documentation Taken 10/26/20242329 by Tamera Kim RN VTE Prevention/Management: SCDs on (sequential compression devices) Goal: Optimal Comfort and Wellbeing 10/27/2024438 by Tamera Kim RN Outcome: Progressing 10/27/2024436 by Tamera Kim RN Outcome: Progressing Goal: Readiness for Transition of Care 10/27/2024438 by Tamera Kim RN Outcome: Progressing 10/27/2024436 by Tamera Kim RN Outcome: Progressing * Plan of Care - Marilin uJlien RN - 10/26/2024 9:47 PM CDT A&Ox4. VSS on 1, weaning IP. PRN tessalon given. Rt Chest tube removed by IR on 10/24. Phos/Mag recheck in AM. Waiting on ARU bed. BG ac/hs, sliding scale aspart and lantus. Some lt sided weakness. Goal Outcome Evaluation: Plan of Care Reviewed With: patient Overall Patient Progress: improvingOverall Patient Progress: improving Outcome Evaluation: 2L NC, weaning IP. PRN tessalon given for cough. DC when bed available to ARU. Problem: Adult Inpatient Plan of Care Goal: Plan of Care Review Description: The Plan of Care Review/Shift note should be completed every shift. The Outcome Evaluation is a brief statement about your assessment that the patient is improving, declining, or no change. This information will be displayed automatically on your shift note. Recent Flowsheet Documentation Taken 10/26/2024 173 by Marilin Julien RN Outcome Evaluation: 2L NC, weaning IP. PRN tessalon given for cough. DC when bed available to ARU. Plan of Care Reviewed With: patient Overall Patient Progress: improving Taken 10/26/2024 173 by Marilin Julien RN Outcome Evaluation: 2L NC, weaning IP. PRN tessalon given for cough. DC when bed available to ARU. Overall Patient Progress: improving Goal: Absence of Hospital-Acquired Illness or Injury Intervention: Identify and Manage Fall Risk Recent Flowsheet Documentation Taken 10/26/2024 171 by Marilin Julien RN Safety Promotion/Fall Prevention: activity supervised nonskid shoes/slippers when out of bed safety round/check completed supervised activity Problem: Pain Acute Goal: Optimal Pain Control and Function 10/26/2024 173 by Marilin Julien RN Outcome: Progressing 10/26/2024 173 by Marilin Julien RN Outcome: Progressing Problem: Pneumonia Goal: Fluid Balance 10/26/2024 173 by Marilin Julien RN Outcome: Progressing 10/26/2024 173 by Marilin Julien RN Outcome: Progressing Goal: Resolution of Infection Signs and Symptoms 10/26/2024 1734 by Marilin Julien RN Outcome: Progressing 10/26/2024 173 by Marilin Julien RN Outcome: Progressing Goal: Effective Oxygenation and Ventilation 10/26/2024 173 by Marilin Julien RN Outcome: Progressing 10/26/2024 173 by Marilin Julien RN Outcome: Progressing Problem: Comorbidity Management Goal: Blood Glucose Levels Within Targeted Range 10/26/2024 1734 by Marilin Julien RN Outcome: Progressing 10/26/20241732 by Marilin Julien RN Outcome: Progressing Problem: Adult Inpatient Plan of Care Goal: Plan of Care Review Description: The Plan of Care Review/Shift note should be completed every shift. The Outcome Evaluation is a brief statement about your assessment that the patient is improving, declining, or no change. This information will be displayed automatically on your shift note. 10/26/20241733 by Marilin Julien RN Outcome: Progressing Flowsheets (Taken 10/26/20241733) Outcome Evaluation: 2L NC, weaning IP. PRN tessalon given for cough. DC when bed available to ARU. Plan of Care Reviewed With: patient Overall Patient Progress: improving 10/26/20241732 by Marilin Julien RN Outcome: Progressing Flowsheets (Taken 10/26/20241732) Outcome Evaluation: 2L NC, weaning IP. PRN tessalon given for cough. DC when bed available to ARU. Overall Patient Progress: improving Goal: Patient-Specific Goal (Individualized) Description: You can add care plan individualizations to a care plan. Examples of Individualizationmight be: Parent requests to be called daily at 9am for status, I have a hard time hearing out of my right ear, or Do not touch me to wake me up as it startles me. 10/26/20241733 by Marilin Julien RN Outcome: Progressing 10/26/20241732 by Marilin Julien RN Outcome: Progressing Goal: Absence of Hospital-Acquired Illness or Injury 10/26/2024 173 by Marilin Julien RN Outcome: Progressing 10/26/20241732 by Marilin Julien RN Outcome: Progressing Intervention: Identify and Manage Fall Risk Recent Flowsheet Documentation Taken 10/26/20241716 by Marilin Julien RN Safety Promotion/Fall Prevention: activity supervised nonskid shoes/slippers when out of bed safety round/check completed supervised activity Goal: Optimal Comfort and Wellbeing 10/26/20241733 by Marilin Julien RN Outcome: Progressing 10/26/2024 1733 by Marilin Julien RN Outcome: Progressing Goal: Readiness for Transition of Care 10/26/2024 1734 by Marilin Julien RN Outcome: Progressing 10/26/2024 1733 by Marilin Julien RN Outcome: Progressing * Plan of Care - Thomas Noland RN - 10/26/2024 2:17 PM CDT Goal Outcome Evaluation: VSS on 2L NC. Alert & Oriented x4. Given PRN Tylenol, x1 for pain at chest tube site. Chest tube removed by IR on 10/24. ACHS: 197, 219. PIV x2, saline locked. Phos & Mag Protocols, Mag replaced AM recheck. Thoracic surgery consulted to manage residual effusion outpatient. Awaiting ARU bed. Plan of Care Reviewed With: patient Overall Patient Progress: improvingOverall Patient Progress: improving Outcome Evaluation: On 2L NC. PRN Tylenol & Tessalon given x1. BG: * Plan of Care - Tamera Kim RN - 10/26/2024 3:40 AM CDT A&Ox4. Assist of 1-2, GB, walker. On 2 L NC, no O2 at baseline. PRN oxycodone, dilaudid, tessalon, and cough syrup given, with some improvement in pain and cough. On Mg and Phos protocol, replaced Mg, Am rechecks. Plan to discharge to ARU once bed becomes available. Goal Outcome Evaluation: Plan of Care Reviewed With: patient Overall Patient Progress: improvingOverall Patient Progress: improving Outcome Evaluation: On 2 L NC, no O2 at baseline. PRN dilaudid, oxycodone, tessalon and cough syrupgiven. B, 167. Problem: Pain Acute Goal: Optimal Pain Control and Function Outcome: Progressing Intervention: Develop Pain Management Plan Recent Flowsheet Documentation Taken 10/25/2024 2302 by Tamera Kim RNorchard worker Interventions: rest care clustered declines Taken 10/25/20242229 by Tamera Kim RNorchard worker Interventions: care clustered rest Taken 10/25/20242219 by Tamera Kim RNorchard worker Interventions: (PRN dilaudid) medication (see MAR) Taken 10/25/20242128 by Tamera Kim RNorchard worker Interventions: rest Taken 10/25/20242046 by Tamera Kim RNorchard worker Interventions: (PRN oxy) medication (see MAR) Intervention: Prevent or Manage Pain Recent Flowsheet Documentation Taken 10/25/20242036 by Tamera Kim RN Medication Review/Management: medications reviewed Problem: Pneumonia Goal: Fluid Balance Outcome: Progressing Goal: Resolution of Infection Signs and Symptoms Outcome: Progressing Goal: Effective Oxygenation and Ventilation Outcome: Progressing Intervention: Promote Airway Secretion Clearance Recent Flowsheet Documentation Taken 10/25/20242036 by Tamera Kim RN Cough And Deep Breathing: done with encouragement Activity Management: activity adjusted per tolerance Intervention: Optimize Oxygenation and Ventilation Recent Flowsheet Documentation Taken 10/25/20242036 by Tamera Kim RN Head of Bed (HOB) Positioning: HOB at 30-45 degrees Problem: Comorbidity Management Goal: Blood Glucose Levels Within Targeted Range Outcome: Progressing Intervention: Monitor and Manage Glycemia Recent Flowsheet Documentation Taken 10/25/20242036 by Tamera Kim RN Medication Review/Management: medications reviewed Problem: Adult Inpatient Plan of Care Goal: Plan of Care Review Description: The Plan of Care Review/Shift note should be completed every shift. The Outcome Evaluation is a brief statement about your assessment that the patient is improving, declining, or no change. This information will be displayed automatically on your shift note. Outcome: Progressing Flowsheets (Taken 10/26/2024 0333) Outcome Evaluation: On 2 L NC, no O2 at baseline. PRN dilaudid, oxycodone, tessalon and cough syrupgiven. B, 167. Plan of Care Reviewed With: patient Overall Patient Progress: improving Goal: Patient-Specific Goal (Individualized) Description: You can add care plan individualizations to a care plan. Examples of Individualizationmight be: Parent requests to be called daily at 9am for status, I have a hard time hearing out of my right ear, or Do not touch me to wake me up as it startles me. Outcome: Progressing Goal: Absence of Hospital-Acquired Illness or Injury Outcome: Progressing Intervention: Identify and Manage Fall Risk Recent Flowsheet Documentation Taken 10/25/20242036 by Tamera Kim RN Safety Promotion/Fall Prevention: safety round/check completed Intervention: Prevent Skin Injury Recent Flowsheet Documentation Taken 10/25/20242036 by Tamera Kim RN Body Position: position changed independently Goal: Optimal Comfort and Wellbeing Outcome: Progressing Intervention: Monitor Pain and Promote Comfort Recent Flowsheet Documentation Taken 10/25/20242301 by Tamera Kim RNorchard worker Interventions: rest care clustered declines Taken 10/25/20242229 by Tamera Kim RNorchard worker Interventions: care clustered rest Taken 10/25/20242219 by Tamera Kim RNorchard worker Interventions: (PRN dilaudid) medication (see MAR) Taken 10/25/20242128 by Tamera Kim RNorchard worker Interventions: rest Taken 10/25/20242046 by Tamera Kim RNorchard worker Interventions: (PRN oxy) medication (see MAR) Goal: Readiness for Transition of Care Outcome: Progressing * Plan of Care - Thomas Noland RN - 10/25/2024 7:23 PM CST Temp: 99.8 ??F (37.7 ??C) Temp src: Oral BP: 130/72 Pulse: 74 Resp: 18 SpO2: 93 % O2 Device: Nasal cannula Oxygen Delivery: 3 LPM VSS on 3L NC. Alert & Oriented. Given PRN Tylenol, Dilaudid, and Tessalon given for pain. Medically ready for discharge. Now awaiting ARU bed. Likely not until Friday 10/27 at the earliest. Goal Outcome Evaluation: Plan of Care Reviewed With: patient Overall Patient Progress: no changeOverall Patient Progress: no change Outcome Evaluation: Pain managed with PRN Dilaudid, Tylenol, & Tessalon. Continues on 3L NC Problem: Pain Acute Goal: Optimal Pain Control and Function Outcome: Progressing Intervention: Develop Pain Management Plan Recent Flowsheet Documentation Taken 10/25/2024807 by Thomas oNland RN Pain Management Interventions: medication (see MAR) Intervention: Prevent or Manage Pain Recent Flowsheet Documentation Taken 10/25/2024807 by Thomas Noland RN Medication Review/Management: medications reviewed Problem: Pneumonia Goal: Fluid Balance Outcome: Progressing Goal: Resolution of Infection Signs and Symptoms Outcome: Progressing Goal: Effective Oxygenation and Ventilation Outcome: Progressing Intervention: Promote Airway Secretion Clearance Recent Flowsheet Documentation Taken 10/25/2024807 by Thomas Noland RN Cough And Deep Breathing: done with encouragement Problem: Comorbidity Management Goal: Blood Glucose Levels Within Targeted Range Outcome: Progressing Intervention: Monitor and Manage Glycemia Recent Flowsheet Documentation Taken 10/25/2024807 by Thomas Noland RN Medication Review/Management: medications reviewed Problem: Adult Inpatient Plan of Care Goal: Plan of Care Review Description: The Plan of Care Review/Shift note should be completed every shift. The Outcome Evaluation is a brief statement about your assessment that the patient is improving, declining, or no change. This information will be displayed automatically on your shift note. Outcome: Progressing Flowsheets (Taken 10/25/20241658) Outcome Evaluation: Pain managed with PRN Dilaudid, Tylenol, & Tessalon. Continues on 3L NC Plan of Care Reviewed With: patient Overall Patient Progress: no change Goal: Patient-Specific Goal (Individualized) Description: You can add care plan individualizations to a care plan. Examples of Individualizationmight be: Parent requests to be called daily at 9am for status, I have a hard time hearing out of my right ear, or Do not touch me to wake me up as it startles me. Outcome: Progressing Goal: Absence of Hospital-Acquired Illness or Injury Outcome: Progressing Intervention: Identify and Manage Fall Risk Recent Flowsheet Documentation Taken 10/25/2024807 by Thomas Noland RN Safety Promotion/Fall Prevention: safety round/check completed Goal: Optimal Comfort and Wellbeing Outcome: Progressing Intervention: Monitor Pain and Promote Comfort Recent Flowsheet Documentation Taken 10/25/2024807 by Thomas Noland RN Pain Management Interventions: medication (see MAR) Goal: Readiness for Transition of Care Outcome: Progressing CTOR VIDEO * Plan of Care - Tamera Kim RN - 10/25/2024 5:40 AM CST A&O x4. On 3L NC, no O2 at baseline. B, 175. Uses urinal. PRN tylenol, oxycodone, dilaudid, and tessalon given for pain, with some improvement. On IV zosyn for PNA. L and R. PIV SL. On amiodarone and metoprolol. On K protocol, Am recheck. Plan to continue antibiotics and wean O2 before discharging to ARU. Goal Outcome Evaluation: Plan of Care Reviewed With: patient Overall Patient Progress: no changeOverall Patient Progress: no change Outcome Evaluation: PRN tylenol, oxycodone, dilaudid, tessalon, and scheduled voltaren gel given for pain, with some improvement. On 3 L NC, no O2 at baseline. B, 175. Problem: Pain Acute Goal: Optimal Pain Control and Function Outcome: Progressing Intervention: Develop Pain Management Plan Recent Flowsheet Documentation Taken 10/24/20242018 by Tamera Kim RNorchard worker Interventions: (PRN oxy) medication (see MAR) Intervention: Prevent or Manage Pain Recent Flowsheet Documentation Taken 10/24/20242141 by Tamera Kim RN Medication Review/Management: medications reviewed Problem: Pneumonia Goal: Fluid Balance Outcome: Progressing Goal: Resolution of Infection Signs and Symptoms Outcome: Progressing Goal: Effective Oxygenation and Ventilation Outcome: Progressing Intervention: Promote Airway Secretion Clearance Recent Flowsheet Documentation Taken 10/24/20242141 by Tamera Kim RN Activity Management: activity adjusted per tolerance Intervention: Optimize Oxygenation and Ventilation Recent Flowsheet Documentation Taken 10/24/20242141 by Tamera Kim RN Head of Bed (HOB) Positioning: HOB at 20-30 degrees Problem: Comorbidity Management Goal: Blood Glucose Levels Within Targeted Range Outcome: Progressing Intervention: Monitor and Manage Glycemia Recent Flowsheet Documentation Taken 10/24/20242141 by Tamera Kim RN Medication Review/Management: medications reviewed Problem: Adult Inpatient Plan of Care Goal: Plan of Care Review Description: The Plan of Care Review/Shift note should be completed every shift. The Outcome Evaluation is a brief statement about your assessment that the patient is improving, declining, or no change. This information will be displayed automatically on your shift note. Outcome: Progressing Flowsheets (Taken 10/25/2024 05) Outcome Evaluation: PRN tylenol, oxycodone, dilaudid, tessalon, and scheduled voltaren gel given for pain, with some improvement. On 3 L NC, no O2 at baseline. B, 175. Plan of Care Reviewed With: patient Overall Patient Progress: no change Goal: Patient-Specific Goal (Individualized) Description: You can add care plan individualizations to a care plan. Examples of Individualizationmight be: Parent requests to be called daily at 9am for status, I have a hard time hearing out of my right ear, or Do not touch me to wake me up as it startles me. Outcome: Progressing Goal: Absence of Hospital-Acquired Illness or Injury Outcome: Progressing Intervention: Identify and Manage Fall Risk Recent Flowsheet Documentation Taken 10/24/20242141 by Tamera Kim RN Safety Promotion/Fall Prevention: safety round/check completed Intervention: Prevent Skin Injury Recent Flowsheet Documentation Taken 10/24/20242141 by Tamera Kim RN Body Position: weight shifting Goal: Optimal Comfort and Wellbeing Outcome: Progressing Intervention: Monitor Pain and Promote Comfort Recent Flowsheet Documentation Taken 10/24/20242018 by Tamera Kim RNorchard worker Interventions: (PRN oxy) medication (see MAR) Goal: Readiness for Transition of Care Outcome: Progressing CTOR VIDEO CTOR VIDEO * Plan of Care - Thomas Noland RN - 10/24/2024 6:58 PM CST Temp: 97.4 ??F (36.3 ??C) Temp src: Oral BP: 118/75 Pulse: 79 Resp: 18 SpO2: 94 % O2 Device: Nasal cannula Oxygen Delivery: 3 LPM VSS on 3L NC. Alert & Oriented x4. Given PRN Tylenol, Dilaudid, & Oxycodone x1 for pain at chest tube site. Chest tube removed by IR. ACHS: 205, 187, 233. PIV x2, saline locked. Phos & Mag Protocols, AM recheck. Thoracic surgery consulted to manage residual effusion. Potential dischargeto ARU in next few days. Goal Outcome Evaluation: Plan of Care Reviewed With: patient Overall Patient Progress: no changeOverall Patient Progress: no change Outcome Evaluation: Chest tube removed by IR. Given PRN Tylenol & Oxycodone for pain prior to removal. CTOR VIDEO * Plan of Care - Keely Del Rosario RN - 10/24/2024 6:49 AM CST Pt alert and orientedx4. On oxygen 3L NC. Blood sugar checks 2am was 207. And this morning checked 76 and given some snack to take. Chest tube on under water seal drainage with no suctioning, no output 11pm-7am. At 1300cc, pain managed with Tylenol and atarax. Problem: Pain Acute Goal: Optimal Pain Control and Function 10/24/2024 0649 by Keely Del Rosario RN Outcome: Progressing 10/24/2024 0648 by Keely Del Rosario RN Outcome: Progressing Problem: Pneumonia Goal: Fluid Balance 10/24/2024 0649 by Keely Del Rosario RN Outcome: Progressing 10/24/2024 0648 by Keely Del Rosario RN Outcome: Not Progressing Goal: Resolution of Infection Signs and Symptoms 10/24/2024 0649 by Keely Del Rosario RN Outcome: Progressing 10/24/2024 0648 by Keely Del Rosario RN Outcome: Not Progressing Goal: Effective Oxygenation and Ventilation 10/24/2024 0649 by Keely Del Rosario RN Outcome: Progressing 10/24/2024 0648 by Keely Del Rosario RN Outcome: Not Progressing Intervention: Promote Airway Secretion Clearance Recent Flowsheet Documentation Taken 10/24/2024 0145 by Keely Del Rosario RN Activity Management: activity adjusted per tolerance Problem: Comorbidity Management Goal: Blood Glucose Levels Within Targeted Range 10/24/2024 0649 by Keely Del Rosario RN Outcome: Progressing 10/24/2024 0648 by Keely Del Rosario RN Outcome: Progressing Problem: Adult Inpatient Plan of Care Goal: Plan of Care Review Description: The Plan of Care Review/Shift note should be completed every shift. The Outcome Evaluation is a brief statement about your assessment that the patient is improving, declining, or no change. This information will be displayed automatically on your shift note. 10/24/2024648 by Keely Del Rosario RN Outcome: Progressing Flowsheets (Taken 10/24/2024648) Plan of Care Reviewed With: patient Overall Patient Progress: no change 10/24/2024647 by Keely Del Rosario RN Outcome: Not Progressing Flowsheets (Taken 10/24/2024647) Outcome Evaluation: chest tube under water seal drainage, no output from 11pm-7am Plan of Care Reviewed With: patient Overall Patient Progress: no change Goal: Patient-Specific Goal (Individualized) Description: You can add care plan individualizations to a care plan. Examples of Individualizationmight be: Parent requests to be called daily at 9am for status, I have a hard time hearing out of my right ear, or Do not touch me to wake me up as it startles me. 10/24/2024648 by Keely Del Rosario RN Outcome: Progressing 10/24/2024647 by Keely Del Rosario RN Outcome: Not Progressing Goal: Absence of Hospital-Acquired Illness or Injury 10/24/2024648 by Keely Del Rosario RN Outcome: Progressing 10/24/2024647 by Keely Del Rosario RN Outcome: Not Progressing Intervention: Identify and Manage Fall Risk Recent Flowsheet Documentation Taken 10/24/2024144 by Keely Del Rosario RN Safety Promotion/Fall Prevention: activity supervised Intervention: Prevent Skin Injury Recent Flowsheet Documentation Taken 10/24/2024144 by Keely Del Rosario RN Body Position: weight shifting foot of bed elevated turned left Intervention: Prevent and Manage VTE (Venous Thromboembolism) Risk Recent Flowsheet Documentation Taken 10/24/2024144 by Keely Del Rosario RN VTE Prevention/Management: SCDs on (sequential compression devices) Intervention: Prevent Infection Recent Flowsheet Documentation Taken 10/24/2024144 by Keely Del Rosario RN Infection Prevention: rest/sleep promoted Goal: Optimal Comfort and Wellbeing 10/24/2024648 by Keely Del Rosario RN Outcome: Progressing 10/24/2024647 by Keely Del Rosario RN Outcome: Not Progressing Goal: Readiness for Transition of Care 10/24/2024 0649 by Keely Del Rosario RN Outcome: Progressing 10/24/2024 0648 by Keely Del Rosario RN Outcome: Not Progressing Goal Outcome Evaluation: Plan of Care Reviewed With: patient Overall Patient Progress: no changeOverall Patient Progress: no change Outcome Evaluation: chest tube under water seal drainage, no output from 11pm-7am CTOR VIDEO * Plan of Care - Marilin Julien RN - 10/23/2024 10:59 PM DIRECTOR VIDEO A&Ox4, c/o pain, controlled w/ oxycodone and dilaudid. Bps within normal range. On 3L NC. Uses urinal. BG ac/hs, aspart and novolog given. PCDs on. Chest tube to waterseal, 450 output this shift. Goal Outcome Evaluation: Plan of Care Reviewed With: patient Overall Patient Progress: no changeOverall Patient Progress: no change Outcome Evaluation: CT of chest performed, increase of chest tube output. Problem: Pain Acute Goal: Optimal Pain Control and Function Outcome: Not Progressing Problem: Adult Inpatient Plan of Care Goal: Patient-Specific Goal (Individualized) Description: You can add care plan individualizations to a care plan. Examples of Individualizationmight be: Parent requests to be called daily at 9am for status, I have a hard time hearing out of my right ear, or Do not touch me to wake me up as it startles me. Outcome: Not Progressing Goal: Absence of Hospital-Acquired Illness or Injury Outcome: Not Progressing Intervention: Identify and Manage Fall Risk Recent Flowsheet Documentation Taken 10/23/2024 1612 by Marilin Julien RN Safety Promotion/Fall Prevention: activity supervised room near nurse's station safety round/check completed supervised activity nonskid shoes/slippers when out of bed Goal: Optimal Comfort and Wellbeing Outcome: Not Progressing Goal: Readiness for Transition of Care Outcome: Not Progressing Problem: Pneumonia Goal: Fluid Balance Outcome: Progressing Goal: Resolution of Infection Signs and Symptoms Outcome: Progressing Goal: Effective Oxygenation and Ventilation Outcome: Progressing Intervention: Promote Airway Secretion Clearance Recent Flowsheet Documentation Taken 10/23/2024 1612 by Marilin Julien RN Cough And Deep Breathing: done with encouragement Problem: Comorbidity Management Goal: Blood Glucose Levels Within Targeted Range Outcome: Progressing Problem: Adult Inpatient Plan of Care Goal: Plan of Care Review Description: The Plan of Care Review/Shift note should be completed every shift. The Outcome Evaluation is a brief statement about your assessment that the patient is improving, declining, or no change. This information will be displayed automatically on your shift note. Outcome: Progressing Flowsheets (Taken 10/23/2024 5698) Outcome Evaluation: CT of chest performed, increase of chest tube output. Plan of Care Reviewed With: patient Overall Patient Progress: no change CTOR VIDEO * Plan of Care - Magno aDwson RN - 10/23/2024 3:51 PM CST B/p soft. [address] put [address]. Bolus given. B/p improved to 111. B/p meds held today. Increased pain to right back/chest. Suctioned turned off per pulm rec. Now on water seal. Pain control with oxy, dilauded. CT of chest pending. Generalized weakness. PCDS on. Poor appetite. BG stable. Spouse is at bedside. Problem: Adult Inpatient Plan of Care Goal: Patient-Specific Goal (Individualized) Description: You can add care plan individualizations to a care plan. Examples of Individualizationmight be: Parent requests to be called daily at 9am for status, I have a hard time hearing out of my right ear, or Do not touch me to wake me up as it startles me. Outcome: Not Progressing Goal: Absence of Hospital-Acquired Illness or Injury Outcome: Not Progressing Intervention: Identify and Manage Fall Risk Recent Flowsheet Documentation Taken 10/23/2024 0830 by Magno Dawson, RN Safety Promotion/Fall Prevention: activity supervised assistive device/personal items within reach clutter free environment maintained increased rounding and observation increase visualization of patient lighting adjusted mobility aid in reach nonskid shoes/slippers when out of bed patient and family education room near nurse's station room organization consistent safety round/check completed supervised activity Intervention: Prevent Skin Injury Recent Flowsheet Documentation Taken 10/23/2024 0830 by Magno Dawson RN Body Position: turned right legs elevated log-rolled side-lying weight shifting Goal: Optimal Comfort and Wellbeing Outcome: Not Progressing Intervention: Monitor Pain and Promote Comfort Recent Flowsheet Documentation Taken 10/23/2024 1454 by Mango Dawson RN Pain Management Interventions: medication (see MAR) Taken 10/23/2024 0843 by Magno Dawson RN Pain Management Interventions: medication (see MAR) repositioned rest Taken 10/23/2024 0813 by Magno Dawson RN Pain Management Interventions: medication (see MAR) Intervention: Provide Person-Centered Care Recent Flowsheet Documentation Taken 10/23/2024 08 by Magno Dawson RN Trust Relationship/Rapport: care explained choices provided questions answered questions encouraged reassurance provided Goal: Readiness for Transition of Care Outcome: Not Progressing Goal Outcome Evaluation: Plan of Care Reviewed With: patient, spouse Overall Patient Progress: improvingOverall Patient Progress: improving Outcome Evaluation: increased pain with increase output from CT CTOR VIDEO * Provider Notification - Magno Dawson RN - 10/23/2024 3:[address] Acosta paged: pt c/o increased back /chest pain . 1250 serosanguinous fluid out within 8 hours.Does he need to continue with suction . called this RN back and gave TORB to turn off suction and change CT to water seal . CTOR VIDEO * Provider Notification - Magno Dawson RN - 10/23/2024 12:[address] Torres messaged via [facility]: pt b/p 87/55 recheck 91/55. Hr 80. Temp 99.4 oral feels warm. Lethargic/sleepy today. Labs, CT head and , iv bolus given. CTOR VIDEO * Provider Notification - Magno Dawson RN - 10/23/2024 8:[address] Torres messaged via [facility]: pt seems to be in more pain then usual. he has had 600 out of the chest tube this am since 6am. clots in there as well. Iv dilauded given still, having pain. b/p 102/69. MD ordered CXR, additional dose of iv dilauded, and tordal. Per md normal to have 600 out of chest tube. VORB ok to give alteplase per scheduled order. Dr. Torres also informed pt o2 sats 88- 89% on 1L. Oxygen was increased to 3L sats now 93% on 3LNc. CXR results pending. CTOR VIDEO * Plan of Care - Sabiha Mathis RN - 10/23/2024 6:05 AM CST Pt is A&Ox4. VSS, on 1L NC. PRN Oxycodone/Tylenol/Atarax, IV dilaudid given for pain. IV Zosyn given. Consults: PT/OT. Problem: Adult Inpatient Plan of Care Goal: Plan of Care Review Description: The Plan of Care Review/Shift note should be completed every shift. The Outcome Evaluation is a brief statement about your assessment that the patient is improving, declining, or no change. This information will be displayed automatically on your shift note. Recent Flowsheet Documentation Taken 10/23/2024 0604 by Sabiha Mathis RN Outcome Evaluation: PRN Oxy/Tylenol/Dilaudid given for pain. Plan of Care Reviewed With: patient Goal: Absence of Hospital-Acquired Illness or Injury Intervention: Identify and Manage Fall Risk Recent Flowsheet Documentation Taken 10/23/2024 030 by Sabiha Mathis RN Safety Promotion/Fall Prevention: activity supervised nonskid shoes/slippers when out of bed patient and family education safety round/check completed Intervention: Prevent Skin Injury Recent Flowsheet Documentation Taken 10/23/2024 030 by Sabiha Mathis RN Body Position: position changed independently Intervention: Prevent Infection Recent Flowsheet Documentation Taken 10/23/2024 0300 by Sabiha Mathis RN Infection Prevention: rest/sleep promoted Goal Outcome Evaluation: Plan of Care Reviewed With: patient Outcome Evaluation: PRN Oxy/Tylenol/Dilaudid given for pain. CTOR VIDEO * Plan of Care - Jazmin Adler RN - 10/22/2024 11:05 PM CST Pt A&O x4. Phos and mag re-check am. Denies SOB, on 1L NC wean as tolerated. Will continue withPOC. Goal Outcome Evaluation: Plan of Care Reviewed With: patient Overall Patient Progress: no changeOverall Patient Progress: no change Outcome Evaluation: C/o pain this shift, prn oxy, tylenol and dilaudid given. Right chest tube in place w/ pink drainage. On zosyn, tolerating it well. 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 Interventions: medication (see MAR) Taken 10/22/2024 195 by Jazmin Adler [employer] worker Interventions: medication (see MAR) Taken 10/22/2024 163 by Jazmin Adler [employer] worker Interventions: emotional support distraction declines Intervention: Prevent or Manage Pain Recent Flowsheet Documentation Taken 10/22/2024 1635 by Jazmin Adler RN Medication Review/Management: medications reviewed Problem: Pneumonia Goal: Fluid Balance 10/22/20242302 by Jazmin Adler RN Outcome: Progressing 10/22/20242224 by Jazmin Adler RN Outcome: Progressing Goal: Resolution of Infection Signs and Symptoms 10/22/20242302 by Jazmin Adler RN Outcome: Progressing 10/22/20242224 by Jazmin Adler RN Outcome: Progressing Goal: Effective Oxygenation and Ventilation 10/22/20242302 by Jazmin Adler RN Outcome: Progressing 10/22/20242224 by Jazmin Adler RN Outcome: Progressing Intervention: Promote Airway Secretion Clearance Recent Flowsheet Documentation Taken 10/22/20241634 by Jazmin Adler RN Cough And Deep Breathing: done independently per patient Activity Management: activity adjusted per tolerance Problem: Comorbidity Management Goal: Blood Glucose Levels Within Targeted Range 10/22/20242302 by Jazmin Adler RN Outcome: Progressing 10/22/20242224 by Jazmin Adler RN Outcome: Progressing Intervention: Monitor and Manage Glycemia Recent Flowsheet Documentation Taken 10/22/20241634 by Jazmin Adler RN Medication Review/Management: medications reviewed Problem: Adult Inpatient Plan of Care Goal: Plan of Care Review Description: The Plan of Care Review/Shift note should be completed every shift. The Outcome Evaluation is a brief statement about your assessment that the patient is improving, declining, or no change. This information will be displayed automatically on your shift note. 10/22/20242302 by Jazmin Adler RN Outcome: Progressing Flowsheets (Taken 10/22/20242253) Outcome Evaluation: C/o pain this shift, prn oxy, tylenol and dilaudid given. Right chest tube in place w/ pink drainage. On zosyn, tolerating it well. Plan of Care Reviewed With: patient Overall Patient Progress: no change 10/22/20242224 by Jazmin Adler RN Outcome: Progressing Flowsheets (Taken 10/22/20242224) Plan of Care Reviewed With: patient Goal: Patient-Specific Goal (Individualized) Description: You can add care plan individualizations to a care plan. Examples of Individualizationmight be: Parent requests to be called daily at 9am for status, I have a hard time hearing out of my right ear, or Do not touch me to wake me up as it startles me. 10/22/20242302 by Jazmin Adler RN Outcome: Progressing 10/22/20242224 by Jazmin Adler RN Outcome: Progressing Goal: Absence of Hospital-Acquired Illness or Injury 10/22/20242302 by Jazmin Adler RN Outcome: Progressing 10/22/20242224 by Jazmin Adler RN Outcome: Progressing Intervention: Identify and Manage Fall Risk Recent Flowsheet Documentation Taken 10/22/20241634 by Jazmin Adler RN Safety Promotion/Fall Prevention: safety round/check completed clutter free environment maintained nonskid shoes/slippers when out of bed Intervention: Prevent Skin Injury Recent Flowsheet Documentation Taken 10/22/2024 163 by Jazmin Adler RN Body Position: position changed independently Intervention: Prevent and Manage VTE (Venous Thromboembolism) Risk Recent Flowsheet Documentation Taken 10/22/2024 163 by Jazmin Adler RN VTE Prevention/Management: SCDs off (sequential compression devices) Intervention: Prevent Infection Recent Flowsheet Documentation Taken 10/22/2024 1635 by Jazmin Adler RN Infection Prevention: hand hygiene promoted single patient room provided Goal: Optimal Comfort and Wellbeing 10/22/2024 230 by Jazmin Adler RN Outcome: Progressing 10/22/20242224 by Jazmin Adler RN Outcome: Progressing Intervention: Monitor Pain and Promote Comfort Recent Flowsheet Documentation Taken 10/22/2024 2149 by Jazmin Adler [employer]chard worker Interventions: medication (see MAR) Taken 10/22/2024 195 by Jazmin Adler [employer] worker Interventions: medication (see MAR) Taken 10/22/2024 163 by Jazmin Adler [employer]chard worker Interventions: emotional support distraction declines Goal: Readiness for Transition of Care 10/22/20242302 by Jazmin Adler RN Outcome: Progressing 10/22/20242224 by Jazmin Adler RN Outcome: Progressing CTOR VIDEO * Plan of Care - Magno Dawson RN - 10/22/2024 2:32 PM CST Vss A&OX4. Increasing pain throughout shift after receiving altepase. Pain controlled 5mg oxy and 650 tyelnol given x2 along with two doses of 0.5mg iv dilauded in between. Ls dim sats 92-9% on 1LNC. Desat to 86% on RA. Problem: Adult Inpatient Plan of Care Goal: Optimal Comfort and Wellbeing Outcome: Not Progressing Intervention: Monitor Pain and Promote Comfort Recent Flowsheet Documentation Taken 10/22/2024 1418 by Magno Dawson RN Pain Management Interventions: medication (see MAR) Taken 10/22/2024 1208 by Magno Dawson RN Pain Management Interventions: medication (see MAR) Taken 10/22/2024 1000 by Magno Dawson RN Pain Management Interventions: relaxation techniques promoted repositioned rest Taken 10/22/2024 0932 by Magno Dawson RN Pain Management Interventions: medication (see MAR) Taken 10/22/2024 0759 by Magno Dawson RN Pain Management Interventions: medication (see MAR) Intervention: Provide Person-Centered Care Recent Flowsheet Documentation Taken 10/22/2024 0818 by Magno Dawson RN Trust Relationship/Rapport: care explained emotional support provided choices provided empathic listening provided questions answered questions encouraged reassurance provided Problem: Pain Acute Goal: Optimal Pain Control and Function Outcome: Progressing Intervention: Develop Pain Management Plan Recent Flowsheet Documentation Taken 10/22/2024 1418 by Magno Dawson RN Pain Management Interventions: medication (see MAR) Taken 10/22/2024 1208 by Magno Dawson RN Pain Management Interventions: medication (see MAR) Taken 10/22/2024 1000 by Magno Dawson RN Pain Management Interventions: relaxation techniques promoted repositioned rest Taken 10/22/2024 0932 by Magno Dawson RN Pain Management Interventions: medication (see MAR) Taken 10/22/2024 0759 by Magno Dawson RN Pain Management Interventions: medication (see MAR) Problem: Pneumonia Goal: Fluid Balance Outcome: Progressing Goal: Resolution of Infection Signs and Symptoms Outcome: Progressing Intervention: Prevent Infection Progression Recent Flowsheet Documentation Taken 10/22/2024 0818 by Magno Dawson RN Infection Management: aseptic technique maintained Goal: Effective Oxygenation and Ventilation Outcome: Progressing Intervention: Promote Airway Secretion Clearance Recent Flowsheet Documentation Taken 10/22/2024 08 by Magno Dawson RN Cough And Deep Breathing: done independently per patient Activity Management: activity adjusted per tolerance Intervention: Optimize Oxygenation and Ventilation Recent Flowsheet Documentation Taken 10/22/2024 08 by Magno Dawson RN Airway/Ventilation Management: airway patency maintained Problem: Comorbidity Management Goal: Blood Glucose Levels Within Targeted Range Outcome: Progressing Problem: Adult Inpatient Plan of Care Goal: Plan of Care Review Description: The Plan of Care Review/Shift note should be completed every shift. The Outcome Evaluation is a brief statement about your assessment that the patient is improving, declining, or no change. This information will be displayed automatically on your shift note. Outcome: Progressing Flowsheets (Taken 10/22/2024 1431) Outcome Evaluation: 100 ml pink fluid out of chest tube Plan of Care Reviewed With: patient Overall Patient Progress: improving Goal: Patient-Specific Goal (Individualized) Description: You can add care plan individualizations to a care plan. Examples of Individualizationmight be: Parent requests to be called daily at 9am for status, I have a hard time hearing out of my right ear, or Do not touch me to wake me up as it startles me. Outcome: Progressing Goal: Absence of Hospital-Acquired Illness or Injury Outcome: Progressing Intervention: Identify and Manage Fall Risk Recent Flowsheet Documentation Taken 10/22/2024 0818 by Magno Dawson, RN Safety Promotion/Fall Prevention: activity supervised assistive device/personal items within reach clutter free environment maintained increased rounding and observation lighting adjusted mobility aid in reach nonskid shoes/slippers when out of bed patient and family education room organization consistent room near nurse's station safety round/check completed Goal: Readiness for Transition of Care Outcome: Progressing Goal Outcome Evaluation: Plan of Care Reviewed With: patient Overall Patient Progress: improvingOverall Patient Progress: improving Outcome Evaluation: 100 ml pink fluid out of chest tube CTOR VIDEO * Plan of Care - Anel Inman RN - 10/22/2024 4:19 AM CST A&Ox 4, VSS 1L NC. Chest tube connected to suction (-20). Draining yellow-pink clear fluids, nocrepitus noted. Protocols: mag, phos - AM draw confirmed IV: R & L PIV saline locked Diet: reg, 2000ml Activity: 2 gb walker to bedside commode. Urinal at bedside Pain: denies Plan to continue chest tube Alteplase BID. Pt requests PRN dilaudid prior to alteplase administration d/t pain/burning. When ready to discharge, acute rehab or TCU to be considered. Temp: 98.8 ??F (37.1 ??C) Temp src: Oral BP: 131/83 Pulse: 84 Resp: 18 SpO2: 92 % O2 Device: Nasal cannula Oxygen Delivery: 1 LPM Goal Outcome Evaluation: Plan of Care Reviewed With: patient Overall Patient Progress: no changeOverall Patient Progress: no change Outcome Evaluation: yellow-pink drainge for chest tube. not as much drainage as yesterday. denies chest pain. Problem: Pain Acute Goal: Optimal Pain Control and Function Outcome: Progressing Problem: Pneumonia Goal: Fluid Balance Outcome: Progressing Goal: Resolution of Infection Signs and Symptoms Outcome: Progressing Goal: Effective Oxygenation and Ventilation Outcome: Progressing Intervention: Promote Airway Secretion Clearance Recent Flowsheet Documentation Taken 10/22/2024 002 by Anel Inman RN Cough And Deep Breathing: done independently per patient Problem: Comorbidity Management Goal: Blood Glucose Levels Within Targeted Range Outcome: Progressing Problem: Adult Inpatient Plan of Care Goal: Plan of Care Review Description: The Plan of Care Review/Shift note should be completed every shift. The Outcome Evaluation is a brief statement about your assessment that the patient is improving, declining, or no change. This information will be displayed automatically on your shift note. Outcome: Progressing Flowsheets (Taken 10/22/2024 0419) Outcome Evaluation: yellow-pink drainge for chest tube. not as much drainage as yesterday. denies chest pain. Plan of Care Reviewed With: patient Overall Patient Progress: no change Goal: Patient-Specific Goal (Individualized) Description: You can add care plan individualizations to a care plan. Examples of Individualizationmight be: Parent requests to be called daily at 9am for status, I have a hard time hearing out of my right ear, or Do not touch me to wake me up as it startles me. Outcome: Progressing Goal: Absence of Hospital-Acquired Illness or Injury Outcome: Progressing Intervention: Identify and Manage Fall Risk Recent Flowsheet Documentation Taken 10/22/2024 0403 by Anel Inman RN Safety Promotion/Fall Prevention: safety round/check completed Taken 10/22/2024 0306 by Anel Inman, RN Safety Promotion/Fall Prevention: safety round/check completed Taken 10/22/2024 0230 by Anel Inman, RN Safety Promotion/Fall Prevention: safety round/check completed Taken 10/22/2024 0026 by Inman, Anel, RN Safety Promotion/Fall Prevention: safety round/check completed Intervention: Prevent and Manage VTE (Venous Thromboembolism) Risk Recent Flowsheet Documentation Taken 10/22/202425 by Anel Inman RN VTE Prevention/Management: SCDs off (sequential compression devices) Intervention: Prevent Infection Recent Flowsheet Documentation Taken 10/22/202425 by Anel Inman RN Infection Prevention: equipment surfaces disinfected rest/sleep promoted single patient room provided Goal: Optimal Comfort and Wellbeing Outcome: Progressing Goal: Readiness for Transition of Care Outcome: Progressing CTOR VIDEO * Plan of Care - Adriana Sandoval RN - 10/21/2024 9:09 PM CST A&OX4. LS diminished. Vitals stable. Afebrile. Chest tube intact and suctioning. Had another dose of alteplase. Continue on IV Zosyn. 2000 ml FR. Continue POC and monitoring. Problem: Adult Inpatient Plan of Care Goal: Plan of Care Review Description: The Plan of Care Review/Shift note should be completed every shift. The Outcome Evaluation is a brief statement about your assessment that the patient is improving, declining, or no change. This information will be displayed automatically on your shift note. Recent Flowsheet Documentation Taken 10/21/20242105 by Adriana Sandoval RN Outcome Evaluation: Had another dose of altpase given during this shift. Posterior right flank pain. Plan of Care Reviewed With: patient spouse Overall Patient Progress: no change Goal: Absence of Hospital-Acquired Illness or Injury Intervention: Prevent and Manage VTE (Venous Thromboembolism) Risk Recent Flowsheet Documentation Taken 10/21/20241658 by Adriana Sandoval RN VTE Prevention/Management: SCDs off (sequential compression devices) Goal: Optimal Comfort and Wellbeing Intervention: Monitor Pain and Promote Comfort Recent Flowsheet Documentation Taken 10/21/20241658 by Adriana Sandoval RN Pain Management Interventions: (patient states that pain is bearable at this time.) declines Problem: Adult Inpatient Plan of Care Goal: Plan of Care Review Description: The Plan of Care Review/Shift note should be completed every shift. The Outcome Evaluation is a brief statement about your assessment that the patient is improving, declining, or no change. This information will be displayed automatically on your shift note. Outcome: Progressing Flowsheets (Taken 10/21/20242105) Outcome Evaluation: Had another dose of altpase given during this shift. Posterior right flank pain. Plan of Care Reviewed With: patient spouse Overall Patient Progress: no change Goal: Patient-Specific Goal (Individualized) Description: You can add care plan individualizations to a care plan. Examples of Individualizationmight be: Parent requests to be called daily at 9am for status, I have a hard time hearing out of my right ear, or Do not touch me to wake me up as it startles me. Outcome: Progressing Goal: Absence of Hospital-Acquired Illness or Injury Outcome: Progressing Intervention: Prevent and Manage VTE (Venous Thromboembolism) Risk Recent Flowsheet Documentation Taken 10/21/20241658 by Adriana Sandoval RN VTE Prevention/Management: SCDs off (sequential compression devices) Goal: Optimal Comfort and Wellbeing Outcome: Progressing Intervention: Monitor Pain and Promote Comfort Recent Flowsheet Documentation Taken 10/21/20241658 by Adriana Sandoval RN Pain Management Interventions: (patient states that pain is bearable at this time.) declines Goal: Readiness for Transition of Care Outcome: Progressing Problem: Pneumonia Goal: Effective Oxygenation and Ventilation Intervention: Promote Airway Secretion Clearance Recent Flowsheet Documentation Taken 10/21/20241658 by Adriana Sandoval RN Cough And Deep Breathing: done independently per patient Problem: Pneumonia Goal: Fluid Balance Outcome: Progressing Goal: Resolution of Infection Signs and Symptoms Outcome: Progressing Goal: Effective Oxygenation and Ventilation Outcome: Progressing Intervention: Promote Airway Secretion Clearance Recent Flowsheet Documentation Taken 10/21/20241658 by Adriana Sandoval RN Cough And Deep Breathing: done independently per patient Problem: Comorbidity Management Goal: Blood Glucose Levels Within Targeted Range Outcome: Progressing Problem: Dysrhythmia Goal: Normalized Cardiac Rhythm Intervention: Monitor and Manage Cardiac Rhythm Effect Recent Flowsheet Documentation Taken 10/21/20241658 by Adriana Sandoval RN VTE Prevention/Management: SCDs off (sequential compression devices) Problem: Pain Acute Goal: Optimal Pain Control and Function Outcome: Progressing Intervention: Develop Pain Management Plan Recent Flowsheet Documentation Taken 10/21/20241658 by Adriana Sandoval RN Pain Management Interventions: (patient states that pain is bearable at this time.) declines Goal Outcome Evaluation: Plan of Care Reviewed With: patient, spouse Overall Patient Progress: no changeOverall Patient Progress: no change Outcome Evaluation: Had another dose of altpase given during this shift. Posterior right flank pain. CTOR VIDEO * Plan of Care - Magno Dawson RN - 10/21/2024 3:06 PM CST Vss A&Ox4 oxygen weaned to 1LNC. Sats 95% on 1LNC. Sob with exertion. C/o increased right chestpain after receiving altepase. Oxycodone, tylenol and dilauded given with some decrease in pain. LSdim crackles. Up to chair with meals. Tele SR d/c'd . Problem: Pain Acute Goal: Optimal Pain Control and Function Outcome: Not Progressing Intervention: Develop Pain Management Plan Recent Flowsheet Documentation Taken 10/21/2024 1334 by Magno Dawson RN Pain Management Interventions: repositioned rest Taken 10/21/2024 1317 by Magno Dawson RN Pain Management Interventions: medication (see MAR) Taken 10/21/2024 1140 by Magno Dawson RN Pain Management Interventions: pillow support provided relaxation techniques promoted Taken 10/21/2024 1043 by Magno Dawson RN Pain Management Interventions: medication (see MAR) Problem: Pneumonia Goal: Fluid Balance Outcome: Progressing Goal: Resolution of Infection Signs and Symptoms Outcome: Progressing Goal: Effective Oxygenation and Ventilation Outcome: Progressing Intervention: Promote Airway Secretion Clearance Recent Flowsheet Documentation Taken 10/21/2024 0944 by Magno Dawson RN Activity Management: ambulated in room up in chair Taken 10/21/2024 0922 by Magno Dawson RN Breathing Techniques/Airway Clearance: deep/controlled cough encouraged Cough And Deep Breathing: done independently per patient Activity Management: activity adjusted per tolerance Intervention: Optimize Oxygenation and Ventilation Recent Flowsheet Documentation Taken 10/21/2024 0922 by Magno Dawson RN Airway/Ventilation Management: airway patency maintained Problem: Comorbidity Management Goal: Blood Glucose Levels Within Targeted Range Outcome: Progressing Problem: Adult Inpatient Plan of Care Goal: Plan of Care Review Description: The Plan of Care Review/Shift note should be completed every shift. The Outcome Evaluation is a brief statement about your assessment that the patient is improving, declining, or no change. This information will be displayed automatically on your shift note. Outcome: Progressing Flowsheets (Taken 10/21/2024 1502) Outcome Evaluation: 140 ml out serosang output of chest tube. altapase given Plan of Care Reviewed With: patient Overall Patient Progress: no change Goal: Patient-Specific Goal (Individualized) Description: You can add care plan individualizations to a care plan. Examples of Individualizationmight be: Parent requests to be called daily at 9am for status, I have a hard time hearing out of my right ear, or Do not touch me to wake me up as it startles me. Outcome: Progressing Goal: Absence of Hospital-Acquired Illness or Injury Outcome: Progressing Intervention: Identify and Manage Fall Risk Recent Flowsheet Documentation Taken 10/21/2024 0922 by Magno Dawson RN Safety Promotion/Fall Prevention: activity supervised assistive device/personal items within reach clutter free environment maintained increased rounding and observation mobility aid in reach nonskid shoes/slippers when out of bed patient and family education room near nurse's station safety round/check completed room organization consistent Goal: Optimal Comfort and Wellbeing Outcome: Progressing Intervention: Monitor Pain and Promote Comfort Recent Flowsheet Documentation Taken 10/21/2024 1334 by Magno Dawson RN Pain Management Interventions: repositioned rest Taken 10/21/2024 1317 by Magno Dawson RN Pain Management Interventions: medication (see MAR) Taken 10/21/2024 1140 by Magno Dawson RN Pain Management Interventions: pillow support provided relaxation techniques promoted Taken 10/21/2024 1043 by Magno Dawson RN Pain Management Interventions: medication (see MAR) Intervention: Provide Person-Centered Care Recent Flowsheet Documentation Taken 10/21/2024 0922 by Magno Dawson RN Trust Relationship/Rapport: care explained choices provided emotional support provided empathic listening provided questions encouraged questions answered reassurance provided Goal: Readiness for Transition of Care Outcome: Progressing Goal Outcome Evaluation: Plan of Care Reviewed With: patient Overall Patient Progress: no changeOverall Patient Progress: no change Outcome Evaluation: 140 ml out serosang output of chest tube. altapase given CTOR VIDEO * Plan of Care - Anel Inman RN - 10/21/2024 3:03 AM CST A&Ox 4, VSS 3L NC. TELE SR. Chest tube intact, no crepitus - milked frequently and draining red/pink. On continuous suction, -20. Clamp, Vaseline guaze, dry gauze, tape at bedside. BG checks, 108at 0200. Pt complains of 2 days of hiccups. Protocols: phos, mag - AM draw IV: L PIV saline locked Diet: mod carb, 2000ml Activity: 1-2 gb walker to bedside commode. Urinal at bedside. Pain: tylenol PRN given for back pain. Pt also repositioned. Pulm following. Plan for 3 days of intrapleural tPA/Dnase (alteplase) BID - pulm note mentioned possibly holding doses if bloody chest tube output continues. Temp: 98.7 ??F (37.1 ??C) Temp src: Oral BP: 100/65 Pulse: 89 Resp: 18 SpO2: 99 % O2 Device: Nasal cannula Oxygen Delivery: 2 LPM Goal Outcome Evaluation: Plan of Care Reviewed With: patient Overall Patient Progress: no changeOverall Patient Progress: no change Outcome Evaluation: chest tube draining, pink/red. frequent repo to move lungs/med Problem: Pain Acute Goal: Optimal Pain Control and Function Outcome: Progressing Intervention: Develop Pain Management Plan Recent Flowsheet Documentation Taken 10/21/202427 by Anel Inman, orchard worker Interventions: medication (see MAR) care clustered pillow support provided rest Problem: Pneumonia Goal: Fluid Balance Outcome: Progressing Goal: Resolution of Infection Signs and Symptoms Outcome: Progressing Goal: Effective Oxygenation and Ventilation Outcome: Progressing Intervention: Promote Airway Secretion Clearance Recent Flowsheet Documentation Taken 10/21/202427 by Anel Inman, RN Cough And Deep Breathing: done independently per patient Problem: Comorbidity Management Goal: Blood Glucose Levels Within Targeted Range Outcome: Progressing Problem: Adult Inpatient Plan of Care Goal: Plan of Care Review Description: The Plan of Care Review/Shift note should be completed every shift. The Outcome Evaluation is a brief statement about your assessment that the patient is improving, declining, or no change. This information will be displayed automatically on your shift note. Outcome: Progressing Flowsheets (Taken 10/21/2024 0302) Outcome Evaluation: chest tube draining, pink/red. frequent repo to move lungs/med Plan of Care Reviewed With: patient Overall Patient Progress: no change Goal: Patient-Specific Goal (Individualized) Description: You can add care plan individualizations to a care plan. Examples of Individualizationmight be: Parent requests to be called daily at 9am for status, I have a hard time hearing out of my right ear, or Do not touch me to wake me up as it startles me. Outcome: Progressing Goal: Absence of Hospital-Acquired Illness or Injury Outcome: Progressing Intervention: Identify and Manage Fall Risk Recent Flowsheet Documentation Taken 10/21/2024 0217 by Anel Inman RN Safety Promotion/Fall Prevention: safety round/check completed Taken 10/21/2024 0028 by Anel Inman RN Safety Promotion/Fall Prevention: safety round/check completed Intervention: Prevent Skin Injury Recent Flowsheet Documentation Taken 10/21/2024 0158 by Anel Inman RN Body Position: turned Intervention: Prevent Infection Recent Flowsheet Documentation Taken 10/21/2024 0028 by Anel Inman RN Infection Prevention: equipment surfaces disinfected rest/sleep promoted single patient room provided Goal: Optimal Comfort and Wellbeing Outcome: Progressing Intervention: Monitor Pain and Promote Comfort Recent Flowsheet Documentation Taken 10/21/2024 0028 by Anel Inman RNorchard worker Interventions: medication (see MAR) care clustered pillow support provided rest Goal: Readiness for Transition of Care Outcome: Progressing CTOR VIDEO * Plan of Care - Adriana Sandoval RN - 10/20/2024 11:47 PM CST Chest tube intact with minimal out put. Administered alteplase. Up with assist of 1 with gait belt and walker to bedside recliner and commode. Tele NSR. Problem: Adult Inpatient Plan of Care Goal: Plan of Care Review Description: The Plan of Care Review/Shift note should be completed every shift. The Outcome Evaluation is a brief statement about your assessment that the patient is improving, declining, or no change. This information will be displayed automatically on your shift note. Recent Flowsheet Documentation Taken 10/20/20242344 by Adriana Sandoval RN Outcome Evaluation: Chest tube intact, with minimal out put. Plan of Care Reviewed With: patient spouse Overall Patient Progress: improving Goal: Absence of Hospital-Acquired Illness or Injury Intervention: Identify and Manage Fall Risk Recent Flowsheet Documentation Taken 10/20/20241703 by Adriana Sandoval RN Safety Promotion/Fall Prevention: nonskid shoes/slippers when out of bed patient and family education safety round/check completed Intervention: Prevent Infection Recent Flowsheet Documentation Taken 10/20/20241703 by Adriana Sandoval RN Infection Prevention: hand hygiene promoted environmental surveillance performed Goal: Optimal Comfort and Wellbeing Intervention: Provide Person-Centered Care Recent Flowsheet Documentation Taken 10/20/20241703 by Adriana Sandoval RN Trust Relationship/Rapport: care explained emotional support provided empathic listening provided questions encouraged thoughts/feelings acknowledged Problem: Adult Inpatient Plan of Care Goal: Plan of Care Review Description: The Plan of Care Review/Shift note should be completed every shift. The Outcome Evaluation is a brief statement about your assessment that the patient is improving, declining, or no change. This information will be displayed automatically on your shift note. Outcome: Progressing Flowsheets (Taken 10/20/20242344) Outcome Evaluation: Chest tube intact, with minimal out put. Plan of Care Reviewed With: patient spouse Overall Patient Progress: improving Goal: Patient-Specific Goal (Individualized) Description: You can add care plan individualizations to a care plan. Examples of Individualizationmight be: Parent requests to be called daily at 9am for status, I have a hard time hearing out of my right ear, or Do not touch me to wake me up as it startles me. Outcome: Progressing Goal: Absence of Hospital-Acquired Illness or Injury Outcome: Progressing Intervention: Identify and Manage Fall Risk Recent Flowsheet Documentation Taken 10/20/20241703 by Adriana Sandoval RN Safety Promotion/Fall Prevention: nonskid shoes/slippers when out of bed patient and family education safety round/check completed Intervention: Prevent Infection Recent Flowsheet Documentation Taken 10/20/20241703 by Adriana Sandoval RN Infection Prevention: hand hygiene promoted environmental surveillance performed Goal: Optimal Comfort and Wellbeing Outcome: Progressing Intervention: Provide Person-Centered Care Recent Flowsheet Documentation Taken 10/20/20241703 by Adriana Sandoval RN Trust Relationship/Rapport: care explained emotional support provided empathic listening provided questions encouraged thoughts/feelings acknowledged Goal: Readiness for Transition of Care Outcome: Progressing Problem: Pneumonia Goal: Effective Oxygenation and Ventilation Intervention: Promote Airway Secretion Clearance Recent Flowsheet Documentation Taken 10/20/20241703 by Adriana Sandoval RN Cough And Deep Breathing: done independently per patient Activity Management: activity adjusted per tolerance Problem: Pneumonia Goal: Fluid Balance Outcome: Progressing Goal: Resolution of Infection Signs and Symptoms Outcome: Progressing Goal: Effective Oxygenation and Ventilation Outcome: Progressing Intervention: Promote Airway Secretion Clearance Recent Flowsheet Documentation Taken 10/20/20241703 by Adriana Sandoval RN Cough And Deep Breathing: done independently per patient Activity Management: activity adjusted per tolerance Problem: Comorbidity Management Goal: Blood Glucose Levels Within Targeted Range Intervention: Monitor and Manage Glycemia Recent Flowsheet Documentation Taken 10/20/20241703 by Adriana Sandoval RN Medication Review/Management: medications reviewed Goal: Maintenance of Heart Failure Symptom Control Intervention: Maintain Heart Failure Management Recent Flowsheet Documentation Taken 10/20/20241703 by Adriana Sandoval RN Medication Review/Management: medications reviewed Goal: Maintenance of Seizure Control Intervention: Maintain Seizure Symptom Control Recent Flowsheet Documentation Taken 10/20/20241703 by Adriana Sandoval RN Medication Review/Management: medications reviewed Problem: Comorbidity Management Goal: Blood Glucose Levels Within Targeted Range Outcome: Progressing Intervention: Monitor and Manage Glycemia Recent Flowsheet Documentation Taken 10/20/20241703 by Adriana Sandoval RN Medication Review/Management: medications reviewed Problem: Pain Acute Goal: Optimal Pain Control and Function Outcome: Progressing Intervention: Prevent or Manage Pain Recent Flowsheet Documentation Taken 10/20/20241703 by Adriana Sandoval, remote sensing technician Review/Management: medications reviewed Goal Outcome Evaluation: Plan of Care Reviewed With: patient, spouse Overall Patient Progress: improvingOverall Patient Progress: improving Outcome Evaluation: Chest tube intact, with minimal out put. CTOR VIDEO * Plan of Care - Meño Fuentes RN - 10/20/2024 3:42 PM CST Goal Outcome Evaluation: Pt A/O x4, VSS on 2 Lpm NC. Pt up with assist of 1-2 gb/walker, very weak. Can pivot with help frombed to chair/commode. Voiding via urinal. Phos Mg+ protocols, recheck in am. Mod carb diet, BG checks ACHS. Groin is red powder applied. R chest tube set up to suction -20. Pt c/o pain at site of tube, gave oxy with little relief. 0.2 mg IV Dilaudid given with relief. CTOR VIDEO * Plan of Care - Ericka Cunningham RN - 10/20/2024 5:12 AM CST VSS on 2L NC, Aox4, A2 w, pt not up this shift. Mod carb diet w/ carb count and 2L fluid restrict. Urinal at bedside. BL PIV SL. IV zosyn given. PO oxycodone given for pain. Micatin powder applied togroin rash. Mg 2.0, replaced. Ph & Mg AM recheck. Tele SR. Discharge TBD. Goal Outcome Evaluation: Plan of Care Reviewed With: patient Overall Patient Progress: improvingOverall Patient Progress: improving Outcome Evaluation: minimal chest tube output Problem: Adult Inpatient Plan of Care Goal: Plan of Care Review Description: The Plan of Care Review/Shift note should be completed every shift. The Outcome Evaluation is a brief statement about your assessment that the patient is improving, declining, or no change. This information will be displayed automatically on your shift note. Outcome: Adequate for Care Transition Flowsheets (Taken 10/20/2024 0511) Outcome Evaluation: minimal chest tube output Plan of Care Reviewed With: patient Overall Patient Progress: improving Goal: Patient-Specific Goal (Individualized) Description: You can add care plan individualizations to a care plan. Examples of Individualizationmight be: Parent requests to be called daily at 9am for status, I have a hard time hearing out of my right ear, or Do not touch me to wake me up as it startles me. Outcome: Adequate for Care Transition Goal: Absence of Hospital-Acquired Illness or Injury Outcome: Adequate for Care Transition Intervention: Identify and Manage Fall Risk Recent Flowsheet Documentation Taken 10/19/20242107 by Ericka Cunningham RN Safety Promotion/Fall Prevention: safety round/check completed Intervention: Prevent Skin Injury Recent Flowsheet Documentation Taken 10/19/20242107 by Ericka Cunningham RN Body Position: weight shifting position changed independently Intervention: Prevent and Manage VTE (Venous Thromboembolism) Risk Recent Flowsheet Documentation Taken 10/19/20242107 by Ericka Cunningham RN VTE Prevention/Management: (eliquis) SCDs off (sequential compression devices) Goal: Optimal Comfort and Wellbeing Outcome: Adequate for Care Transition Goal: Readiness for Transition of Care Outcome: Adequate for Care Transition Problem: Pneumonia Goal: Fluid Balance Outcome: Adequate for Care Transition Goal: Resolution of Infection Signs and Symptoms Outcome: Adequate for Care Transition Problem: Comorbidity Management Goal: Blood Glucose Levels Within Targeted Range Outcome: Adequate for Care Transition Goal: Maintenance of Heart Failure Symptom Control Outcome: Adequate for Care Transition Goal: Maintenance of Seizure Control Outcome: Adequate for Care Transition Intervention: Maintain Seizure Symptom Control Recent Flowsheet Documentation Taken 10/19/20242107 by Ericka Cunningham RN Seizure Precautions: side rails padded Problem: Dysrhythmia Goal: Normalized Cardiac Rhythm Outcome: Adequate for Care Transition Intervention: Monitor and Manage Cardiac Rhythm Effect Recent Flowsheet Documentation Taken 10/19/20242107 by Ericka Cunningham RN VTE Prevention/Management: (eliquis) SCDs off (sequential compression devices) CTOR VIDEO * Plan of Care - Magno Dawson RN - 10/19/2024 3:19 PM CST Vss A&Ox4 up to chair with A1-2 and walker. Left side weakness. Alarms on. Ls dm crackles . CT site CDI. Minimal serous output. Sats 92-95% on 2LNC. Tele SR BG 144 and 245 Problem: Adult Inpatient Plan of Care Goal: Plan of Care Review Description: The Plan of Care Review/Shift note should be completed every shift. The Outcome Evaluation is a brief statement about your assessment that the patient is improving, declining, or no change. This information will be displayed automatically on your shift note. Outcome: Progressing Flowsheets (Taken 10/19/2024 1518) Outcome Evaluation: o2 weaned to 2LNC Plan of Care Reviewed With: patient Overall Patient Progress: improving Goal: Patient-Specific Goal (Individualized) Description: You can add care plan individualizations to a care plan. Examples of Individualizationmight be: Parent requests to be called daily at 9am for status, I have a hard time hearing out of my right ear, or Do not touch me to wake me up as it startles me. Outcome: Progressing Goal: Absence of Hospital-Acquired Illness or Injury Outcome: Progressing Intervention: Identify and Manage Fall Risk Recent Flowsheet Documentation Taken 10/19/2024 0850 by Magno Dawson RN Safety Promotion/Fall Prevention: activity supervised assistive device/personal items within reach clutter free environment maintained increased rounding and observation increase visualization of patient lighting adjusted mobility aid in reach nonskid shoes/slippers when out of bed patient and family education room organization consistent room near nurse's station safety round/check completed Goal: Optimal Comfort and Wellbeing Outcome: Progressing Goal: Readiness for Transition of Care Outcome: Progressing Problem: Pneumonia Goal: Fluid Balance Outcome: Progressing Goal: Resolution of Infection Signs and Symptoms Outcome: Progressing Intervention: Prevent Infection Progression Recent Flowsheet Documentation Taken 10/19/2024 0850 by Magno Dawson, RN Infection Management: aseptic technique maintained Problem: Comorbidity Management Goal: Blood Glucose Levels Within Targeted Range Outcome: Progressing Goal: Maintenance of Heart Failure Symptom Control Outcome: Progressing Goal: Maintenance of Seizure Control Outcome: Progressing Problem: Dysrhythmia Goal: Normalized Cardiac Rhythm Outcome: Progressing Goal Outcome Evaluation: Plan of Care Reviewed With: patient Overall Patient Progress: improvingOverall Patient Progress: improving Outcome Evaluation: o2 weaned to 2LNC CTOR VIDEO * Plan of Care - Keely Del Rosario RN - 10/19/2024 6:56 AM CST Pt alert and oriented. Chest tube draining 4ml for my shift, oxygen using 4L NC. Blood sugar check,on TELE has been SR/AFIB. External catheter in place. Problem: Adult Inpatient Plan of Care Goal: Plan of Care Review Description: The Plan of Care Review/Shift note should be completed every shift. The Outcome Evaluation is a brief statement about your assessment that the patient is improving, declining, or no change. This information will be displayed automatically on your shift note. Outcome: Progressing Flowsheets (Taken 10/19/2024 0655) Outcome Evaluation: chest tube in place. TELE monitor, Plan of Care Reviewed With: patient Overall Patient Progress: improving Goal: Patient-Specific Goal (Individualized) Description: You can add care plan individualizations to a care plan. Examples of Individualizationmight be: Parent requests to be called daily at 9am for status, I have a hard time hearing out of my right ear, or Do not touch me to wake me up as it startles me. Outcome: Progressing Goal: Absence of Hospital-Acquired Illness or Injury Outcome: Progressing Intervention: Prevent Skin Injury Recent Flowsheet Documentation Taken 10/19/2024 0100 by Keely Del Rosario RN Body Position: weight shifting supine Goal: Optimal Comfort and Wellbeing Outcome: Progressing Goal: Readiness for Transition of Care Outcome: Progressing Problem: Pneumonia Goal: Fluid Balance Outcome: Progressing Goal: Resolution of Infection Signs and Symptoms Outcome: Progressing Problem: Comorbidity Management Goal: Blood Glucose Levels Within Targeted Range Outcome: Progressing Goal: Maintenance of Heart Failure Symptom Control Outcome: Progressing Goal: Maintenance of Seizure Control Outcome: Progressing Problem: Dysrhythmia Goal: Normalized Cardiac Rhythm Outcome: Progressing Goal Outcome Evaluation: Plan of Care Reviewed With: patient Overall Patient Progress: improvingOverall Patient Progress: improving Outcome Evaluation: chest tube in place. TELE monitor, CTOR VIDEO * Plan of Care - Torri Frausto RN - 10/18/2024 11:59 PM CST Goal Outcome Evaluation: Plan of Care Reviewed With: patient BP 127/87 (BP Location: Right arm) Pulse 72 Temp 99.9 ??F (37.7 ??C) (Oral) Resp 18 Ht 1.753 m (5' 9) Wt 80.5 kg (177 lb 7.5 oz) SpO2 95% BMI 26.21 kg/m?? Problem: Adult Inpatient Plan of Care Goal: Plan of Care Review Description: The Plan of Care Review/Shift note should be completed every shift. The Outcome Evaluation is a brief statement about your assessment that the patient is improving, declining, or no change. This information will be displayed automatically on your shift note. Outcome: Not Progressing Flowsheets (Taken 10/18/2024 2093) Outcome Evaluation: Pt A&O, chest tube in place with 20cc output on this shift, ate 75% of his meal, on BG check, covered with insuline, for mobility use 2 assist, gait belt, walker, on tele monitor AF 130, ON 4 L OXYGEN. Plan of Care Reviewed With: patient Goal: Patient-Specific Goal (Individualized) Description: You can add care plan individualizations to a care plan. Examples of Individualizationmight be: Parent requests to be called daily at 9am for status, I have a hard time hearing out of my right ear, or Do not touch me to wake me up as it startles me. Outcome: Not Progressing Goal: Absence of Hospital-Acquired Illness or Injury Outcome: Not Progressing Intervention: Identify and Manage Fall Risk Recent Flowsheet Documentation Taken 10/18/20241999 by Torri Frausto RN Safety Promotion/Fall Prevention: activity supervised assistive device/personal items within reach clutter free environment maintained nonskid shoes/slippers when out of bed patient and family education room organization consistent safety round/check completed Intervention: Prevent Skin Injury Recent Flowsheet Documentation Taken 10/18/20241999 by Torri Frausto RN Body Position: weight shifting supine Skin Protection: adhesive use limited tubing/devices free from skin contact Intervention: Prevent and Manage VTE (Venous Thromboembolism) Risk Recent Flowsheet Documentation Taken 10/18/20241999 by Torri Frausto RN VTE Prevention/Management: SCDs off (sequential compression devices) Intervention: Prevent Infection Recent Flowsheet Documentation Taken 10/18/20241999 by Torri Frausto RN Infection Prevention: environmental surveillance performed rest/sleep promoted single patient room provided Goal: Optimal Comfort and Wellbeing Outcome: Not Progressing Intervention: Monitor Pain and Promote Comfort Recent Flowsheet Documentation Taken 10/18/20241999 by Torri Frausto RN Pain Management Interventions: medication (see MAR) care clustered pillow support provided rest Intervention: Provide Person-Centered Care Recent Flowsheet Documentation Taken 10/18/20241999 by Torri Frausto RN Trust Relationship/Rapport: emotional support provided Goal: Readiness for Transition of Care Outcome: Not Progressing Problem: Pneumonia Goal: Fluid Balance Outcome: Not Progressing Intervention: Monitor and Manage Fluid Balance Recent Flowsheet Documentation Taken 10/18/20241999 by Torri Frausto RN Fluid/Electrolyte Management: fluids adjusted fluids restricted Goal: Resolution of Infection Signs and Symptoms Outcome: Not Progressing Intervention: Prevent Infection Progression Recent Flowsheet Documentation Taken 10/18/20241999 by Torri Frausto RN Infection Management: aseptic technique maintained Isolation Precautions: droplet precautions maintained Problem: Comorbidity Management Goal: Blood Glucose Levels Within Targeted Range Outcome: Not Progressing Intervention: Monitor and Manage Glycemia Recent Flowsheet Documentation Taken 10/18/20241999 by Torri Frausto RN Medication Review/Management: medications reviewed Goal: Maintenance of Heart Failure Symptom Control Outcome: Not Progressing Intervention: Maintain Heart Failure Management Recent Flowsheet Documentation Taken 10/18/20241999 by Torri Frausto RN Medication Review/Management: medications reviewed Goal: Maintenance of Seizure Control Outcome: Not Progressing Intervention: Maintain Seizure Symptom Control Recent Flowsheet Documentation Taken 10/18/20241999 by Torri Frausto RN Sensory Stimulation Regulation: care clustered lighting decreased quiet environment promoted Seizure Precautions: side rails padded Medication Review/Management: medications reviewed Problem: Dysrhythmia Goal: Normalized Cardiac Rhythm Outcome: Not Progressing Intervention: Monitor and Manage Cardiac Rhythm Effect Recent Flowsheet Documentation Taken 10/18/20241999 by Torri Frausto RN Dysrhythmia Management: other (see comments) VTE Prevention/Management: SCDs off (sequential compression devices) Outcome Evaluation: Pt A&O, chest tube in place with 20cc output on this shift, ate 75% of his meal, on BG check, covered with insuline, for mobility use 2 assist, gait belt, walker, on tele monitor AF 130, ON 4 L OXYGEN. CTOR VIDEO * Plan of Care - Magno Dawson RN - 10/18/2024 3:29 PM CST Sob with exertion . Sats stable on 4LNC. Up with A2 belt and pivot to bed and chair. Chronic left side weakness. 720 intake. On 1999 FR. Calls aprop. A&OX4 Problem: Adult Inpatient Plan of Care Goal: Plan of Care Review Description: The Plan of Care Review/Shift note should be completed every shift. The Outcome Evaluation is a brief statement about your assessment that the patient is improving, declining, or no change. This information will be displayed automatically on your shift note. Outcome: Progressing Flowsheets (Taken 10/18/2024 1528) Outcome Evaluation: [address] Plan of Care Reviewed With: patient spouse Overall Patient Progress: improving Goal: Patient-Specific Goal (Individualized) Description: You can add care plan individualizations to a care plan. Examples of Individualizationmight be: Parent requests to be called daily at 9am for status, I have a hard time hearing out of my right ear, or Do not touch me to wake me up as it startles me. Outcome: Progressing Goal: Absence of Hospital-Acquired Illness or Injury Outcome: Progressing Intervention: Identify and Manage Fall Risk Recent Flowsheet Documentation Taken 10/18/2024 0840 by Magno Dawson RN Safety Promotion/Fall Prevention: activity supervised assistive device/personal items within reach clutter free environment maintained nonskid shoes/slippers when out of bed patient and family education room organization consistent safety round/check completed Goal: Optimal Comfort and Wellbeing Outcome: Progressing Goal: Readiness for Transition of Care Outcome: Progressing Problem: Pneumonia Goal: Fluid Balance Outcome: Progressing Goal: Resolution of Infection Signs and Symptoms Outcome: Progressing Intervention: Prevent Infection Progression Recent Flowsheet Documentation Taken 10/18/2024 0840 by Magno Dawson RN Infection Management: aseptic technique maintained Isolation Precautions: droplet precautions maintained Problem: Comorbidity Management Goal: Blood Glucose Levels Within Targeted Range Outcome: Progressing Goal: Maintenance of Heart Failure Symptom Control Outcome: Progressing Goal: Maintenance of Seizure Control Outcome: Progressing Problem: Dysrhythmia Goal: Normalized Cardiac Rhythm Outcome: Progressing Goal Outcome Evaluation: Plan of Care Reviewed With: patient, spouse Overall Patient Progress: improvingOverall Patient Progress: improving Outcome Evaluation: [address] CTOR VIDEO * Plan of Care - Giovanna Lieberman RN - 10/18/2024 5:58 AM CST Goal Outcome Evaluation: Plan of Care Reviewed With: patient Overall Patient Progress: no changeOverall Patient Progress: no change Outcome Evaluation: Chest tube in place, given oxy x1 for pain, 3L O2 via NC overnight A/Ox4, VSS, on 3L O2 via NC overnight, tele monitoring (SR 77), PIV SL, ABX given, Ax2, chest tube in place, pain managed with PRN oxy x1, pt endorses dry non-productive cough, glucose monitoring, voiding via external catheter, tolerating a mod carb diet and 1500 fluid restriction, will continue tomonitor. Problem: Adult Inpatient Plan of Care Goal: Plan of Care Review Description: The Plan of Care Review/Shift note should be completed every shift. The Outcome Evaluation is a brief statement about your assessment that the patient is improving, declining, or no change. This information will be displayed automatically on your shift note. Outcome: Progressing Flowsheets (Taken 10/18/2024 0488) Outcome Evaluation: Chest tube in place, given oxy x1 for pain, 3L O2 via NC overnight Plan of Care Reviewed With: patient Overall Patient Progress: no change Goal: Patient-Specific Goal (Individualized) Description: You can add care plan individualizations to a care plan. Examples of Individualizationmight be: Parent requests to be called daily at 9am for status, I have a hard time hearing out of my right ear, or Do not touch me to wake me up as it startles me. Outcome: Progressing Goal: Absence of Hospital-Acquired Illness or Injury Outcome: Progressing Intervention: Identify and Manage Fall Risk Recent Flowsheet Documentation Taken 10/18/2024 6813 by Giovanna Lieberman, RN Safety Promotion/Fall Prevention: activity supervised assistive device/personal items within reach clutter free environment maintained nonskid shoes/slippers when out of bed patient and family education safety round/check completed Intervention: Prevent Skin Injury Recent Flowsheet Documentation Taken 10/18/2024351 by Giovanna Lieberman RN Body Position: weight shifting Intervention: Prevent Infection Recent Flowsheet Documentation Taken 10/18/2024351 by Giovanna Lieberman RN Infection Prevention: environmental surveillance performed rest/sleep promoted single patient room provided Goal: Optimal Comfort and Wellbeing Outcome: Progressing Intervention: Monitor Pain and Promote Comfort Recent Flowsheet Documentation Taken 10/18/2024351 by Giovanna Lieberman RN Pain Management Interventions: medication (see MAR) care clustered pillow support provided rest Goal: Readiness for Transition of Care Outcome: Progressing Problem: Pneumonia Goal: Fluid Balance Outcome: Progressing Goal: Resolution of Infection Signs and Symptoms Outcome: Progressing Problem: Comorbidity Management Goal: Blood Glucose Levels Within Targeted Range Outcome: Progressing Intervention: Monitor and Manage Glycemia Recent Flowsheet Documentation Taken 10/18/2024351 by Giovanna Lieberman RN Medication Review/Management: medications reviewed Goal: Maintenance of Heart Failure Symptom Control Outcome: Progressing Intervention: Maintain Heart Failure Management Recent Flowsheet Documentation Taken 10/18/2024351 by Giovanna Lieberman RN Medication Review/Management: medications reviewed Goal: Maintenance of Seizure Control Outcome: Progressing Intervention: Maintain Seizure Symptom Control Recent Flowsheet Documentation Taken 10/18/2024351 by Giovanna Lieberman RN Sensory Stimulation Regulation: care clustered lighting decreased quiet environment promoted Medication Review/Management: medications reviewed Problem: Dysrhythmia Goal: Normalized Cardiac Rhythm Outcome: Progressing CTOR VIDEO * Plan of Care - Georgie Shepherd RN - 10/18/2024 12:01 AM CST Goal Outcome Evaluation: Plan of Care Reviewed With: patient Overall Patient Progress: improvingOverall Patient Progress: improving Outcome Evaluation: CT ouput 65, painful rt side iproves with po meds & repositioning. on 3L O2per NC, infrew nonprod cough, voiding per ext cath. levated BP at times, tachy Problem: Adult Inpatient Plan of Care Goal: Plan of Care Review Description: The Plan of Care Review/Shift note should be completed every shift. The Outcome Evaluation is a brief statement about your assessment that the patient is improving, declining, or no change. This information will be displayed automatically on your shift note. Outcome: Progressing Flowsheets (Taken 10/17/2024 1349) Outcome Evaluation: CT ouput 65, painful rt side iproves with po meds & repositioning. on 3L O2per NC, infrew nonprod cough, voiding per ext cath. levated BP at times, tachy Plan of Care Reviewed With: patient Overall Patient Progress: improving Goal: Patient-Specific Goal (Individualized) Description: You can add care plan individualizations to a care plan. Examples of Individualizationmight be: Parent requests to be called daily at 9am for status, I have a hard time hearing out of my right ear, or Do not touch me to wake me up as it startles me. Outcome: Progressing Goal: Absence of Hospital-Acquired Illness or Injury Outcome: Progressing Intervention: Identify and Manage Fall Risk Recent Flowsheet Documentation Taken 10/17/20241624 by Georgie Shepherd RN Safety Promotion/Fall Prevention: activity supervised assistive device/personal items within reach clutter free environment maintained nonskid shoes/slippers when out of bed patient and family education safety round/check completed Intervention: Prevent Skin Injury Recent Flowsheet Documentation Taken 10/17/20242000 by Georgie Shepherd RN Body Position: left turned Taken 10/17/20241624 by Georgie Shepherd RN Body Position: weight shifting Intervention: Prevent and Manage VTE (Venous Thromboembolism) Risk Recent Flowsheet Documentation Taken 10/17/20241624 by Georgie Shepherd RN VTE Prevention/Management: SCDs off (sequential compression devices) Goal: Optimal Comfort and Wellbeing Outcome: Progressing Intervention: Monitor Pain and Promote Comfort Recent Flowsheet Documentation Taken 10/17/20242003 by Georgie Shepherd RN Pain Management Interventions: medication (see MAR) Taken 10/17/20241624 by Georgie Shepherd RN Pain Management Interventions: medication (see MAR) rest Goal: Readiness for Transition of Care Outcome: Progressing Problem: Pneumonia Goal: Fluid Balance Outcome: Progressing Goal: Resolution of Infection Signs and Symptoms Outcome: Progressing Problem: Comorbidity Management Goal: Blood Glucose Levels Within Targeted Range Outcome: Progressing Goal: Maintenance of Heart Failure Symptom Control Outcome: Progressing Goal: Maintenance of Seizure Control Outcome: Progressing Problem: Dysrhythmia Goal: Normalized Cardiac Rhythm Outcome: Progressing Intervention: Monitor and Manage Cardiac Rhythm Effect Recent Flowsheet Documentation Taken 10/17/2024 162 by Georgie Shepherd RN VTE Prevention/Management: SCDs off (sequential compression devices) Problem: Pneumonia Goal: Effective Oxygenation and Ventilation Intervention: Promote Airway Secretion Clearance Recent Flowsheet Documentation Taken 10/17/2024 162 by Georgie Shepherd RN Cough And Deep Breathing: done with encouragement CTOR VIDEO * Plan of Care - Magno Dawson RN - 10/17/2024 2:56 PM CST Afib CVR to RVR low 100's 5mg iv metoprolol given x1. Sob with exertion. Weak. Ambulated to chair with A2. A&Ox4. Problem: Adult Inpatient Plan of Care Goal: Plan of Care Review Description: The Plan of Care Review/Shift note should be completed every shift. The Outcome Evaluation is a brief statement about your assessment that the patient is improving, declining, or no change. This information will be displayed automatically on your shift note. Outcome: Progressing Flowsheets (Taken 10/17/2024 1455) Outcome Evaluation: ambulated to chair Plan of Care Reviewed With: patient Overall Patient Progress: improving Goal: Patient-Specific Goal (Individualized) Description: You can add care plan individualizations to a care plan. Examples of Individualizationmight be: Parent requests to be called daily at 9am for status, I have a hard time hearing out of my right ear, or Do not touch me to wake me up as it startles me. Outcome: Progressing Goal: Absence of Hospital-Acquired Illness or Injury Outcome: Progressing Intervention: Identify and Manage Fall Risk Recent Flowsheet Documentation Taken 10/17/2024 0858 by Magno Dawson RN Safety Promotion/Fall Prevention: activity supervised assistive device/personal items within reach clutter free environment maintained increased rounding and observation lighting adjusted mobility aid in reach nonskid shoes/slippers when out of bed patient and family education room organization consistent safety round/check completed Intervention: Prevent Skin Injury Recent Flowsheet Documentation Taken 10/17/2024 0858 by Magno Dawson RN Body Position: turned left legs elevated log-rolled side-lying weight shifting Goal: Optimal Comfort and Wellbeing Outcome: Progressing Goal: Readiness for Transition of Care Outcome: Progressing Problem: Pneumonia Goal: Fluid Balance Outcome: Progressing Goal: Resolution of Infection Signs and Symptoms Outcome: Progressing Problem: Comorbidity Management Goal: Blood Glucose Levels Within Targeted Range Outcome: Progressing Goal: Maintenance of Heart Failure Symptom Control Outcome: Progressing Goal: Maintenance of Seizure Control Outcome: Progressing Problem: Dysrhythmia Goal: Normalized Cardiac Rhythm Outcome: Progressing Goal Outcome Evaluation: Plan of Care Reviewed With: patient Overall Patient Progress: improvingOverall Patient Progress: improving Outcome Evaluation: ambulated to chair CTOR VIDEO * Plan of Care - Tova Alberts LICSW - 10/17/2024 11:41 AM CST HERMAN Duran Preconstruction Manager Inpatient Care Coordination [employer] Corporate Training Manager [facility] [phone] CTOR VIDEO * Plan of Care - Mone Fragoso RN - 10/17/2024 7:48 AM CST Goal Outcome Evaluation: Plan of Care Reviewed With: patient Overall Patient Progress: no changeOverall Patient Progress: no change Outcome Evaluation: Pt flipped back to Afib RVR (HR <120) MD notified, po coreg and amio given. VSS except sbp 140s. Denies pain & sob, on 3L O2. Chest tube intact, draining. Problem: Adult Inpatient Plan of Care Goal: Plan of Care Review Description: The Plan of Care Review/Shift note should be completed every shift. The Outcome Evaluation is a brief statement about your assessment that the patient is improving, declining, or no change. This information will be displayed automatically on your shift note. Outcome: Progressing Flowsheets (Taken 10/17/2024 0741) Outcome Evaluation: Pt flipped back to Afib RVR (HR <120) MD notified, po coreg and amio given. VSS except sbp 140s. Denies pain & sob, on 3L O2. Chest tube intact, draining. Plan of Care Reviewed With: patient Overall Patient Progress: no change Goal: Patient-Specific Goal (Individualized) Description: You can add care plan individualizations to a care plan. Examples of Individualizationmight be: Parent requests to be called daily at 9am for status, I have a hard time hearing out of my right ear, or Do not touch me to wake me up as it startles me. Outcome: Progressing Goal: Absence of Hospital-Acquired Illness or Injury Outcome: Progressing Intervention: Identify and Manage Fall Risk Recent Flowsheet Documentation Taken 10/17/2024151 by Mone Fragoso RN Safety Promotion/Fall Prevention: safety round/check completed Intervention: Prevent Infection Recent Flowsheet Documentation Taken 10/17/2024151 by Mone Fragoso RN Infection Prevention: equipment surfaces disinfected rest/sleep promoted Goal: Optimal Comfort and Wellbeing Outcome: Progressing Goal: Readiness for Transition of Care Outcome: Progressing Problem: Pneumonia Goal: Fluid Balance Outcome: Progressing Goal: Resolution of Infection Signs and Symptoms Outcome: Progressing Problem: Comorbidity Management Goal: Blood Glucose Levels Within Targeted Range Outcome: Progressing Goal: Maintenance of Heart Failure Symptom Control Outcome: Progressing Goal: Maintenance of Seizure Control Outcome: Progressing Problem: Dysrhythmia Goal: Normalized Cardiac Rhythm Outcome: Progressing CTOR VIDEO * Plan of Care - Adriana Sandoval RN - 10/16/2024 9:20 PM CST IMC status. A&OX4. Flat affect. LS diminished . T max 100.8. Gave Tylenol and temp was down to 98.6. Amiodarone drip discontinued and stopped. Oral amio started. Patient continue to be in NSR. Chest tube intact and suctioning. Out put is 30 ml. Left upper and lower extremities weakness. 1500 FR. Continue POC and monitoring. Problem: Adult Inpatient Plan of Care Goal: Plan of Care Review Description: The Plan of Care Review/Shift note should be completed every shift. The Outcome Evaluation is a brief statement about your assessment that the patient is improving, declining, or no change. This information will be displayed automatically on your shift note. Outcome: Progressing Flowsheets (Taken 10/16/20242117) Outcome Evaluation: Amio drip discontinued and stopped. Started on oral amiodarone. Tele NSR. Plan of Care Reviewed With: patient spouse Overall Patient Progress: improving Goal: Patient-Specific Goal (Individualized) Description: You can add care plan individualizations to a care plan. Examples of Individualizationmight be: Parent requests to be called daily at 9am for status, I have a hard time hearing out of my right ear, or Do not touch me to wake me up as it startles me. Outcome: Progressing Goal: Absence of Hospital-Acquired Illness or Injury Outcome: Progressing Goal: Optimal Comfort and Wellbeing Outcome: Progressing Intervention: Monitor Pain and Promote Comfort Recent Flowsheet Documentation Taken 10/16/2024 155 by Adriana Sandoval, orchard worker Interventions: rest repositioned Goal: Readiness for Transition of Care Outcome: Progressing Problem: Pneumonia Goal: Fluid Balance Outcome: Progressing Goal: Resolution of Infection Signs and Symptoms Outcome: Progressing Problem: Comorbidity Management Goal: Blood Glucose Levels Within Targeted Range Outcome: Progressing Goal: Maintenance of Heart Failure Symptom Control Outcome: Progressing Goal: Maintenance of Seizure Control Outcome: Progressing Problem: Dysrhythmia Goal: Normalized Cardiac Rhythm Outcome: Progressing Goal Outcome Evaluation: Plan of Care Reviewed With: patient, spouse Overall Patient Progress: improvingOverall Patient Progress: improving Outcome Evaluation: Amio drip discontinued and stopped. Started on oral amiodarone. Tele NSR. CTOR VIDEO * Plan of Care - Anthony Huang RN - 10/16/2024 2:25 PM CST A&Ox4. Bedrest, Ax2 w lift. 3L NC. BG ac/hs. Carb count, mod/carb diet. Incontinent of stool & urine, external cath. On zosyn. 2 PIVs. On amio drip, plan to switch to oral amio tn. Chest tubeplaced today and hooked up to suction. VS stable. Dressing clean, dry, intact. [place] drainage, 10ml,and diminished lung sounds present. Goal Outcome Evaluation: Plan of Care Reviewed With: patient Outcome Evaluation: Amio drip. Chest tube inserted today. Problem: Adult Inpatient Plan of Care Goal: Plan of Care Review Description: The Plan of Care Review/Shift note should be completed every shift. The Outcome Evaluation is a brief statement about your assessment that the patient is improving, declining, or no change. This information will be displayed automatically on your shift note. Outcome: Progressing Flowsheets (Taken 10/16/2024 1425) Outcome Evaluation: Amio drip. Chest tube inserted today. Plan of Care Reviewed With: patient Goal: Patient-Specific Goal (Individualized) Description: You can add care plan individualizations to a care plan. Examples of Individualizationmight be: Parent requests to be called daily at 9am for status, I have a hard time hearing out of my right ear, or Do not touch me to wake me up as it startles me. Outcome: Progressing Goal: Absence of Hospital-Acquired Illness or Injury Outcome: Progressing Intervention: Identify and Manage Fall Risk Recent Flowsheet Documentation Taken 10/16/2024 1229 by Anthony Huang RN Safety Promotion/Fall Prevention: safety round/check completed Taken 10/16/2024 0832 by Anthony Huang RN Safety Promotion/Fall Prevention: safety round/check completed Intervention: Prevent Skin Injury Recent Flowsheet Documentation Taken 10/16/2024 1306 by Anthony Huang RN Body Position: left turned log-rolled Intervention: Prevent and Manage VTE (Venous Thromboembolism) Risk Recent Flowsheet Documentation Taken 10/16/2024 0832 by Anthony Huang RN VTE Prevention/Management: SCDs on (sequential compression devices) Intervention: Prevent Infection Recent Flowsheet Documentation Taken 10/16/2024 0832 by Anthony Huang RN Infection Prevention: hand hygiene promoted single patient room provided Goal: Optimal Comfort and Wellbeing Outcome: Progressing Goal: Readiness for Transition of Care Outcome: Progressing Problem: Pneumonia Goal: Fluid Balance Outcome: Progressing Goal: Resolution of Infection Signs and Symptoms Outcome: Progressing Problem: Comorbidity Management Goal: Blood Glucose Levels Within Targeted Range Outcome: Progressing Intervention: Monitor and Manage Glycemia Recent Flowsheet Documentation Taken 10/16/2024 0832 by Anthony Huang RN Medication Review/Management: medications reviewed Goal: Maintenance of Heart Failure Symptom Control Outcome: Progressing Intervention: Maintain Heart Failure Management Recent Flowsheet Documentation Taken 10/16/2024 0832 by Anthony Huang RN Medication Review/Management: medications reviewed Goal: Maintenance of Seizure Control Outcome: Progressing Intervention: Maintain Seizure Symptom Control Recent Flowsheet Documentation Taken 10/16/2024 0832 by Anthony Huang RN Medication Review/Management: medications reviewed Problem: Dysrhythmia Goal: Normalized Cardiac Rhythm Outcome: Progressing Intervention: Monitor and Manage Cardiac Rhythm Effect Recent Flowsheet Documentation Taken 10/16/2024 0832 by Anthony Huang RN VTE Prevention/Management: SCDs on (sequential compression devices) CTOR VIDEO * Plan of Care - Kiesha Guerra RN - 10/16/2024 6:30 AM CST Pt is alert and oriented. Pt denies any pain. Dyspnea on exertion, diminished lung sounds to bases and pt on 3LNC. Tele: SR. Blood glucose: 301. IV Abx Zosyn administered. IV Amiodarone infusing. 1500ml fluid restriction. BM x 4 on this shift. External catheter patent. Ongoing monitoring. Plan: Pulmonology following. Discharge TBD. BP (!) 143/84 (BP Location: Right arm) Pulse 78 Temp 98.6 ??F (37 ??C) (Oral) Resp 24 Ht 1.753 m (5' 9) Wt 80.5 kg (177 lb 7.5 oz) SpO2 99% BMI 26.21 kg/m?? Problem: Adult Inpatient Plan of Care Goal: Plan of Care Review Description: The Plan of Care Review/Shift note should be completed every shift. The Outcome Evaluation is a brief statement about your assessment that the patient is improving, declining, or no change. This information will be displayed automatically on your shift note. Outcome: Progressing Flowsheets (Taken 10/16/2024 0442) Outcome Evaluation: Amiodarone infusing Plan of Care Reviewed With: patient Overall Patient Progress: improving Goal: Patient-Specific Goal (Individualized) Description: You can add care plan individualizations to a care plan. Examples of Individualizationmight be: Parent requests to be called daily at 9am for status, I have a hard time hearing out of my right ear, or Do not touch me to wake me up as it startles me. Outcome: Progressing Goal: Absence of Hospital-Acquired Illness or Injury Outcome: Progressing Intervention: Identify and Manage Fall Risk Recent Flowsheet Documentation Taken 10/16/2024 0353 by Kiesha Guerra RN Safety Promotion/Fall Prevention: safety round/check completed Taken 10/16/2024 0300 by Kiesha Guerra RN Safety Promotion/Fall Prevention: safety round/check completed Taken 10/16/2024 0100 by Kiesha Guerra RN Safety Promotion/Fall Prevention: safety round/check completed Taken 10/16/2024 0016 by Kiesha Guerra RN Safety Promotion/Fall Prevention: safety round/check completed patient and family education nonskid shoes/slippers when out of bed lighting adjusted clutter free environment maintained assistive device/personal items within reach Taken 10/15/2024 2300 by Kiesha Guerra RN Safety Promotion/Fall Prevention: safety round/check completed Intervention: Prevent Skin Injury Recent Flowsheet Documentation Taken 10/16/2024 0016 by Kiesha Guerra RN Body Position: turned right left heels elevated upper extremity elevated Intervention: Prevent and Manage VTE (Venous Thromboembolism) Risk Recent Flowsheet Documentation Taken 10/16/2024 0016 by Kiesha Guerra RN VTE Prevention/Management: SCDs off (sequential compression devices) Intervention: Prevent Infection Recent Flowsheet Documentation Taken 10/16/2024 001 by Kiesha Guerra RN Infection Prevention: single patient room provided rest/sleep promoted hand hygiene promoted Goal: Optimal Comfort and Wellbeing Outcome: Progressing Goal: Readiness for Transition of Care Outcome: Progressing Problem: Pneumonia Goal: Fluid Balance Outcome: Progressing Goal: Resolution of Infection Signs and Symptoms Outcome: Progressing Problem: Comorbidity Management Goal: Blood Glucose Levels Within Targeted Range Outcome: Progressing Intervention: Monitor and Manage Glycemia Recent Flowsheet Documentation Taken 10/16/2024 001 by Kiesha Guerra RN Medication Review/Management: medications reviewed Goal: Maintenance of Heart Failure Symptom Control Outcome: Progressing Intervention: Maintain Heart Failure Management Recent Flowsheet Documentation Taken 10/16/2024 001 by Kiesha Guerra RN Medication Review/Management: medications reviewed Goal: Maintenance of Seizure Control Outcome: Progressing Intervention: Maintain Seizure Symptom Control Recent Flowsheet Documentation Taken 10/16/2024 001 by Kiesha Guerra RN Medication Review/Management: medications reviewed Problem: Dysrhythmia Goal: Normalized Cardiac Rhythm Outcome: Progressing Intervention: Monitor and Manage Cardiac Rhythm Effect Recent Flowsheet Documentation Taken 10/16/2024 001 by Kiesha Guerra RN VTE Prevention/Management: SCDs off (sequential compression devices) Goal Outcome Evaluation: Plan of Care Reviewed With: patient Overall Patient Progress: improvingOverall Patient Progress: improving Outcome Evaluation: Amiodarone infusing CTOR VIDEO * Plan of Care - Anel Lucas RN - 10/15/2024 6:50 PM CST Patient is alert and oriented x4 with intermittent confusion. Transferred from ICU on amiodarone gtt. O2 @ 3L via NC, at bedside. Goal Outcome Evaluation: Overall Patient Progress: improving Outcome Evaluation: Continues on amiodarone gtt. Remains NSR on tele. Problem: Adult Inpatient Plan of Care Goal: Plan of Care Review Description: The Plan of Care Review/Shift note should be completed every shift. The Outcome Evaluation is a brief statement about your assessment that the patient is improving, declining, or no change. This information will be displayed automatically on your shift note. Outcome: Progressing Flowsheets (Taken 10/15/2024 1849) Outcome Evaluation: Continues on amiodarone gtt. Remains NSR on tele. Overall Patient Progress: improving Goal: Patient-Specific Goal (Individualized) Description: You can add care plan individualizations to a care plan. Examples of Individualizationmight be: Parent requests to be called daily at 9am for status, I have a hard time hearing out of my right ear, or Do not touch me to wake me up as it startles me. Outcome: Progressing Goal: Absence of Hospital-Acquired Illness or Injury Outcome: Progressing Intervention: Identify and Manage Fall Risk Recent Flowsheet Documentation Taken 10/15/2024 1600 by Anel Lucas RN Safety Promotion/Fall Prevention: assistive device/personal items within reach clutter free environment maintained room near nurse's station safety round/check completed Goal: Optimal Comfort and Wellbeing Outcome: Progressing Intervention: Provide Person-Centered Care Recent Flowsheet Documentation Taken 10/15/2024 1600 by Anel Lucas RN Trust Relationship/Rapport: care explained questions answered Goal: Readiness for Transition of Care Outcome: Progressing Problem: Pneumonia Goal: Fluid Balance Outcome: Progressing Goal: Resolution of Infection Signs and Symptoms Outcome: Progressing Problem: Comorbidity Management Goal: Blood Glucose Levels Within Targeted Range Outcome: Progressing Goal: Maintenance of Heart Failure Symptom Control Outcome: Progressing Goal: Maintenance of Seizure Control Outcome: Progressing Problem: Dysrhythmia Goal: Normalized Cardiac Rhythm Outcome: Progressing CTOR VIDEO * Plan of Care - Clau Cai RN - 10/15/2024 3:49 PM CST ICU End of Shift Summary. For vital signs and complete assessments, please see documentation flowsheets. Pertinent assessments: AOx4, forgetful at times. Afebrile. Reports pain to R lateral rib/flank especially when pt coughs. Tele AFib, RVR until 954 when he converted to SR. MAPs >65. LS clear, diminished. Loose, non-productive cough. UOP 300mL this shift. Pt reported difficulty with voiding. Bladder scanned for 237mL. No BM, bowel meds given. Poor appetite, supplements ordered. Major Shift Events: Converted to SR @ 0955. Borderline UOP. Nutrition consult. Pulm consult. Plan (Upcoming Events): Brain MRI, Chest CT. Transfer to MA3. Monitor UOP. Discharge/Transfer Needs: TBD Bedside Shift Report Completed : Y Bedside Safety Check Completed: Y Goal Outcome Evaluation: Plan of Care Reviewed With: patient, spouse Overall Patient Progress: improvingOverall Patient Progress: improving Outcome Evaluation: Converted to SR @ 0955. BGs remain high, adjustments to insulin orders. Bowel meds given. Poor appetite, nutrition consult. Pulm consult. MRI brain, CT chest ordered Problem: Comorbidity Management Goal: Blood Glucose Levels Within Targeted Range Outcome: Not Progressing Intervention: Monitor and Manage Glycemia Recent Flowsheet Documentation Taken 10/15/2024 1300 by Clau Cai RN Medication Review/Management: medications reviewed Taken 10/15/2024 0900 by Clau Cai RN Medication Review/Management: medications reviewed Problem: Adult Inpatient Plan of Care Goal: Plan of Care Review Description: The Plan of Care Review/Shift note should be completed every shift. The Outcome Evaluation is a brief statement about your assessment that the patient is improving, declining, or no change. This information will be displayed automatically on your shift note. Outcome: Progressing Flowsheets (Taken 10/15/2024 154) Outcome Evaluation: Converted to SR @ 0955. BGs remain high, adjustments to insulin orders. Bowel meds given. Poor appetite, nutrition consult. Pulm consult. MRI brain, CT chest ordered Plan of Care Reviewed With: patient spouse Overall Patient Progress: improving Goal: Patient-Specific Goal (Individualized) Description: You can add care plan individualizations to a care plan. Examples of Individualizationmight be: Parent requests to be called daily at 9am for status, I have a hard time hearing out of my right ear, or Do not touch me to wake me up as it startles me. Outcome: Progressing Flowsheets (Taken 10/15/2024 154) Individualized Care Needs: Baseline L sided weakness Goal: Absence of Hospital-Acquired Illness or Injury Outcome: Progressing Intervention: Identify and Manage Fall Risk Recent Flowsheet Documentation Taken 10/15/2024 1300 by Clau Cai RN Safety Promotion/Fall Prevention: increase visualization of patient increased rounding and observation clutter free environment maintained lighting adjusted Taken 10/15/2024 0900 by Clau Cai RN Safety Promotion/Fall Prevention: increase visualization of patient increased rounding and observation clutter free environment maintained lighting adjusted Intervention: Prevent Skin Injury Recent Flowsheet Documentation Taken 10/15/2024 1400 by Clau Cai RN Body Position: turned right heels elevated neutral body alignment Taken 10/15/2024 1200 by Clau Cai RN Body Position: turned left heels elevated side-lying 30 degrees Taken 10/15/2024 1000 by Clau Cai RN Body Position: turned right heels elevated side-lying 30 degrees Taken 10/15/2024 0900 by Clau Cai RN Body Position: turned left heels elevated side-lying 30 degrees Intervention: Prevent and Manage VTE (Venous Thromboembolism) Risk Recent Flowsheet Documentation Taken 10/15/2024 1300 by Clau Cai RN VTE Prevention/Management: SCDs off (sequential compression devices) Taken 10/15/2024 0900 by Clau Cai RN VTE Prevention/Management: SCDs off (sequential compression devices) Intervention: Prevent Infection Recent Flowsheet Documentation Taken 10/15/2024 1300 by Clau Cai RN Infection Prevention: single patient room provided rest/sleep promoted Taken 10/15/2024 0900 by Clau Cai RN Infection Prevention: single patient room provided rest/sleep promoted Goal: Optimal Comfort and Wellbeing Outcome: Progressing Intervention: Provide Person-Centered Care Recent Flowsheet Documentation Taken 10/15/2024 1300 by Clau Cai RN Trust Relationship/Rapport: care explained choices provided questions answered questions encouraged reassurance provided Taken 10/15/2024 0900 by Clau Cai RN Trust Relationship/Rapport: care explained choices provided questions answered questions encouraged reassurance provided Goal: Readiness for Transition of Care Outcome: Progressing Flowsheets (Taken 10/15/2024 1547) Anticipated Changes Related to Illness: inability to care for self Concerns to be Addressed: discharge planning Intervention: Mutually Develop Transition Plan Recent Flowsheet Documentation Taken 10/15/2024 1547 by Clau Cai RN Anticipated Changes Related to Illness: inability to care for self Concerns to be Addressed: discharge planning Problem: Pneumonia Goal: Fluid Balance Outcome: Progressing Goal: Resolution of Infection Signs and Symptoms Outcome: Progressing Problem: Comorbidity Management Goal: Maintenance of Heart Failure Symptom Control Outcome: Progressing Intervention: Maintain Heart Failure Management Recent Flowsheet Documentation Taken 10/15/2024 1300 by Clau Cai RN Medication Review/Management: medications reviewed Taken 10/15/2024 0900 by Clau Cai RN Medication Review/Management: medications reviewed Goal: Maintenance of Seizure Control Outcome: Progressing Intervention: Maintain Seizure Symptom Control Recent Flowsheet Documentation Taken 10/15/2024 1300 by Clau Cai RN Medication Review/Management: medications reviewed Taken 10/15/2024 0900 by Clau Cai RN Medication Review/Management: medications reviewed Problem: Dysrhythmia Goal: Normalized Cardiac Rhythm Outcome: Progressing Intervention: Monitor and Manage Cardiac Rhythm Effect Recent Flowsheet Documentation Taken 10/15/2024 1300 by Clau Cai RN Dysrhythmia Management: (Amio gtt) other (see comments) VTE Prevention/Management: SCDs off (sequential compression devices) Taken 10/15/2024 0900 by Clau Cai RN VTE Prevention/Management: SCDs off (sequential compression devices) Problem: Pneumonia Goal: Effective Oxygenation and Ventilation Intervention: Promote Airway Secretion Clearance Recent Flowsheet Documentation Taken 10/15/2024 1300 by Clau Cai RN Breathing Techniques/Airway Clearance: deep/controlled cough encouraged Cough And Deep Breathing: done with encouragement Activity Management: activity adjusted per tolerance Taken 10/15/2024 0900 by Clau Cai RN Breathing Techniques/Airway Clearance: deep/controlled cough encouraged Activity Management: activity adjusted per tolerance Intervention: Optimize Oxygenation and Ventilation Recent Flowsheet Documentation Taken 10/15/2024 1400 by Clau Cai RN Head of Bed (HOB) Positioning: HOB at 20-30 degrees Taken 10/15/2024 1300 by Clau Cai RN Airway/Ventilation Management: airway patency maintained pulmonary hygiene promoted Taken 10/15/2024 1200 by Clau Cai RN Head of Bed (HOB) Positioning: HOB at 20-30 degrees Taken 10/15/2024 1000 by Clau Cai RN Head of Bed (HOB) Positioning: HOB at 20 degrees Taken 10/15/2024 0900 by Clau Cai RN Airway/Ventilation Management: airway patency maintained pulmonary hygiene promoted Head of Bed (HOB) Positioning: HOB at 20-30 degrees CTOR VIDEO * Plan of Care - Natalie Landaverde RN - 10/15/2024 8:16 AM CST ICU End of Shift Summary. For vital signs and complete assessments, please see documentation flowsheets. Pertinent assessments: arrived to unit about 06. A&O. Tele Afib RVR- started amiodarone gtt. 2L NC, lungs dim, R side coarse. Loose nonproductive cough. Constipated, will do senna today. External cath placed. Lines: piv Drips: amiodarone Shift Events: Arrived to unit after rapid response for afib rvr, requiring amiodarone gtt Plan (Upcoming Events): amio gtt. Would benefit from physical therapy consult. Bedside Shift Report Completed : y Bedside Safety Check Completed: y Goal Outcome Evaluation: Plan of Care Reviewed With: patient Overall Patient Progress: no changeOverall Patient Progress: no change Outcome Evaluation: transferred in with Afib RVR in 140s, started amiodarone gtt. Problem: Adult Inpatient Plan of Care Goal: Plan of Care Review Description: The Plan of Care Review/Shift note should be completed every shift. The Outcome Evaluation is a brief statement about your assessment that the patient is improving, declining, or no change. This information will be displayed automatically on your shift note. Outcome: Not Progressing Flowsheets (Taken 10/15/2024814) Outcome Evaluation: transferred in with Afib RVR in 140s, started amiodarone gtt. Plan of Care Reviewed With: patient Overall Patient Progress: no change Goal: Patient-Specific Goal (Individualized) Description: You can add care plan individualizations to a care plan. Examples of Individualizationmight be: Parent requests to be called daily at 9am for status, I have a hard time hearing out of my right ear, or Do not touch me to wake me up as it startles me. Outcome: Not Progressing Goal: Absence of Hospital-Acquired Illness or Injury Outcome: Not Progressing Intervention: Identify and Manage Fall Risk Recent Flowsheet Documentation Taken 10/15/2024629 by Natalie Landaverde RN Safety Promotion/Fall Prevention: activity supervised assistive device/personal items within reach clutter free environment maintained increased rounding and observation increase visualization of patient lighting adjusted safety round/check completed room organization consistent room near nurse's station treat underlying cause treat reversible contributory factors Intervention: Prevent Skin Injury Recent Flowsheet Documentation Taken 10/15/2024629 by Natalie Landaverde RN Body Position: turned left heels elevated upper extremity elevated Skin Protection: adhesive use limited tubing/devices free from skin contact Intervention: Prevent and Manage VTE (Venous Thromboembolism) Risk Recent Flowsheet Documentation Taken 10/15/2024629 by Natalie Landavrede RN VTE Prevention/Management: (eliquis) SCDs off (sequential compression devices) Intervention: Prevent Infection Recent Flowsheet Documentation Taken 10/15/2024629 by Natalie Landaverde RN Infection Prevention: hand hygiene promoted rest/sleep promoted single patient room provided equipment surfaces disinfected Goal: Optimal Comfort and Wellbeing Outcome: Not Progressing Intervention: Provide Person-Centered Care Recent Flowsheet Documentation Taken 10/15/2024629 by Natalie Landaverde RN Trust Relationship/Rapport: care explained emotional support provided choices provided empathic listening provided questions answered questions encouraged reassurance provided thoughts/feelings acknowledged Goal: Readiness for Transition of Care Outcome: Not Progressing Flowsheets (Taken 10/15/2024814) Anticipated Changes Related to Illness: inability to care for self Transportation Anticipated: family or friend will provide Concerns to be Addressed: discharge planning Barriers to Discharge: afib rvr/amio gtt, weakness Intervention: Mutually Develop Transition Plan Recent Flowsheet Documentation Taken 10/15/2024814 by Natalie Landaverde RN Anticipated Changes Related to Illness: inability to care for self Transportation Anticipated: family or friend will provide Concerns to be Addressed: discharge planning CTOR VIDEO * Plan of Care - Cari Marie RN - 10/15/2024 6:17 AM CST Goal Outcome Evaluation: Pt. Continues to be tachy 120's-140's. New orders received for Amiodarone drip. Patient transferredto ICU at 0615 hrs to be administered this medication. Report given to MENDEL Estrada. ICU will notify spouse. CTOR VIDEO * Plan of Care - Cari Marie RN - 10/15/2024 2:46 AM CST Goal Outcome Evaluation: Patients' BGs 358. X-cover notified and orders received to give 8 units of Novolog. CTOR VIDEO * Code/Rapid Response - Angelia, Horacio Valiente MD - 10/15/2024 1:39 AM DIRECTOR VIDEO -LOADING UNIT TOOL SETTER note- LOADING UNIT TOOL SETTER was called due to patient with significant tachycardia with rates ranging from 130-170 on routine vital sign check. He was on telemetry, but this was stopped today. He is hospitalized here for respiratory failure secondary to pneumonia along with hyponatremia. He had shortness of breath with increased hypoxia last night and x-ray showed a pleural effusion and he underwent a thoracentesis today where 100 mL were removed, this was a loculated effusion. I evaluated patient at the bedside immediately. He tells me he does not feel any different than he has all day. He denies any shortness of breath, chest pain, lightheadedness currently. He is on the same amount of oxygen as he was. His blood pressure at this moment is lower than previous, currently 95 systolic. Obtained stat EKG which confirms A-fib with rapid RVR and some ST depression. Assessment/plan: A-fib with RVR: He reports history of A-fib when he had his bioprosthetic aortic valve placed a fewyears ago. He is chronically on apixaban and carvedilol 12.5 mg twice daily. He did not receive denies dose of carvedilol or last night's due to the blood pressure parameter setting to hold for systolic blood pressure less than 130. He also has acute infection which likely treat his A-fib. He is relatively asymptomatic, but the blood pressure is lowered likely secondary to decreased diastolic filling time and the rates are very fast up to the 160s/170s. Hopefully with some AV eneida blockade he will spontaneous convert back to NSR or we can achieve better rate control. -Give 5 mg IV metoprolol and reassess rate/blood pressure -change to hold parameters for his carvedilol to hold if SBP <110. Will use metoprolol IV as needed overnight and then give his carvedilol dose in the morning -Restart cardiac monitoring -BMP and magnesium level in the morning Addendum: Heart rate improved but still in the 120-140s. BP now 112/58. -Give additional 5 mg IV metoprolol now -Glucose also 358, give 8 units aspart Addendum: Heart rate remains 120-140s and current blood pressure is 101/63. He is chronically on apixaban andhas not missed doses. QTc is not prolonged. Unclear to me why the EKG that was done in the room Staci visualized has not been loaded into epic, but it is certainly A-fib with RVR. I do not think diltiazem infusion will be tolerated secondary to hypotension. I do not think he will tolerate heart rates this fast for long. -Start IV amiodarone 24-hour load, but with current soft blood pressure we will not give the initial 150 mg bolus [place] [place] amiodarone load. Ideally move patient to 3rd floor, but no beds available at this eim CTOR VIDEO CTOR VIDEO CTOR VIDEO CTOR VIDEO * Plan of Care - Cari Marie RN - 10/15/2024 1:29 AM CST Goal Outcome Evaluation: LOADING UNIT TOOL SETTER activated as patient was running Tachy with ranges between 130-167. He was asymptomatic denyingfeelings of a racing heart, pressure or pain. O2 was steady at 94-95 on 3 L NC. Prompt response andprovider assessed patient at bedside. Orders obtained. CTOR VIDEO CTOR VIDEO CTOR VIDEO * Plan of Care - Alma Machado RN - 10/14/2024 6:27 PM CST Goal Outcome Evaluation: To Do: Admitting Diagnosis: pneumonia Pertinent History: seizures, DMT1, A fib on Eliquis Living Situation: home w/ Pain plan: Oxycodone, Atarax, Tylenol, Lidocaine patches, Zanaflex Mobility: Ax1 Baseline activity: independent Alarms/Safety: Bed Alarm LDA's: Peripheral Pertinent test results: Pleural fluid panel complete--cultures pending. Right thoracentesis completed 100 mL output. Consults: Infectious Disease and Pulmonary Abnormals/Pending: Pleural fluid cultures pending. MRSA swab pending. Other Cares/Comments: 5 LPM Oxymask--titrated to 3 LPM Oxymask. Rocephin and Azithromycin switched to Zoysn. Vancomycin discontinued MRSA screen is negative--MD notified Dr. Wilber Talbot at 2233. IS. Tele discontinued; NSR. Discharge Disposition: home with spouse Discharge Time: ELIZABET TIJERINA notified at 3:08 PM Pt and Spouse requested psyllium be switched to tablet form vspowder. Okay to change in AM. Sticky note placed in pt chart. Problem: Adult Inpatient Plan of Care Goal: Plan of Care Review Description: The Plan of Care Review/Shift note should be completed every shift. The Outcome Evaluation is a brief statement about your assessment that the patient is improving, declining, or no change. This information will be displayed automatically on your shift note. Outcome: Progressing Flowsheets (Taken 10/14/2024 1827) Plan of Care Reviewed With: patient Goal: Patient-Specific Goal (Individualized) Description: You can add care plan individualizations to a care plan. Examples of Individualizationmight be: Parent requests to be called daily at 9am for status, I have a hard time hearing out of my right ear, or Do not touch me to wake me up as it startles me. Outcome: Progressing Goal: Absence of Hospital-Acquired Illness or Injury Outcome: Progressing Goal: Optimal Comfort and Wellbeing Outcome: Progressing Intervention: Monitor Pain and Promote Comfort Recent Flowsheet Documentation Taken 10/14/2024 1805 by Alma Machado RN Pain Management Interventions: medication (see MAR) Taken 10/14/2024 1636 by Alma Machado RN Pain Management Interventions: medication (see MAR) Taken 10/14/2024 1440 by Alma Machado RN Pain Management Interventions: declines rest relaxation techniques promoted Taken 10/14/2024 1358 by Alma Machado RN Pain Management Interventions: medication (see MAR) repositioned rest Taken 10/14/2024 1024 by Alma Machado RN Pain Management Interventions: pain management plan reviewed with patient/caregiver repositioned rest Goal: Readiness for Transition of Care Outcome: Progressing Problem: Pneumonia Goal: Fluid Balance Outcome: Progressing Goal: Resolution of Infection Signs and Symptoms Outcome: Progressing Problem: Comorbidity Management Goal: Blood Glucose Levels Within Targeted Range Outcome: Progressing Goal: Maintenance of Heart Failure Symptom Control Outcome: Progressing Goal: Maintenance of Seizure Control Outcome: Progressing CTOR VIDEO CTOR VIDEO * Significant Event - Wilber Talbot APRN CNP - 10/14/2024 5:47 PM DIRECTOR VIDEO Brief Medicine Note: 10/14/2024 5:49 PM Notified by RN that staph nares swab has returned. MRSA negative. Discontinue Vancomycin. CTOR VIDEO * Pharmacy-Vancomycin Dosing Service - Gisele Mello [facility] - 10/14/2024 12:54 PM CST Pharmacy Vancomycin Initial Note Date of Service October 14, 2024 Patient's 1960 63 year old, male Indication: Community Acquired Pneumonia Current estimated CrCl = Estimated Creatinine Clearance: 92.3 mL/min (based on SCr of 0.93 mg/dL). Creatinine for last 3 days 10/12/2024: 10:55 AM Creatinine 0.94 mg/dL; 11:00 AM Creatinine POCT 1.1 mg/dL 10/13/2024: 7:01 AM Creatinine 0.80 mg/dL 10/14/2024: 6:06 AM Creatinine 0.93 mg/dL Recent Vancomycin Level(s) for last 3 days No results found for requested labs within last 3 days. Vancomycin IV Administrations (past 72 hours) No vancomycin orders with administrations in past 72 hours. Nephrotoxins and other renal medications (From now, onward) Start Dose/Rate Route Frequency Ordered Stop 10/14/24 1300 vancomycin (VANCOCIN) 1,750 mg in 0.9% NaCl 517.5 mL intermittent infusion 1,750 mg over 2 Hours Intravenous ONCE 10/14/24 1251 10/14/24 1230 piperacillin-tazobactam (ZOSYN) 3.375 g vial to attach to NS 100 mL bag Note to Pharmacy: For [facility], [facility] and [facility]: For Zosyn-naive patients, use the Zosyn initial dose + extended infusion order panel. 3.375 g over 30 Minutes Intravenous EVERY 6 HOURS 10/14/24 1220 10/13/24 0800 lisinopril (ZESTRIL) tablet 30 mg Note to Pharmacy: MANAGER OF SOFTWARE Sig:Take 1 tablet (30 mg) by mouth daily. 30 mg Oral DAILY 10/12/24 1508 Contrast Orders - past 72 hours (72h ago, onward) Start Dose/Rate Route Frequency Stop 10/12/24 1210 iopamidol (ISOVUE-370) solution 500 mL 500 mL Intravenous ONCE 10/12/24 1212 [employer] Prediction of Planned Initial Vancomycin Regimen Loading dose: 1750 mg at 13:00 10/14/2024. Regimen: 1000 mg IV every 12 hours. Start time: 21:00 on 10/14/2024 Exposure target: AUC24 (range)400-600 mg/L.hr AUC24,ss: 497 mg/L.hr Probability of AUC24 > 400: 72 % Ctrough,ss: 15.9 mg/L Probability of Ctrough,ss > 20: 31 % Probability of nephrotoxicity (Lodise JLUIS 2008): 11 % Plan: Start vancomycin 1750 mg IV load, then 1000 IV q12h. Vancomycin monitoring method: AUC Vancomycin therapeutic monitoring goal: 400-600 mg*h/L Pharmacy will check vancomycin levels as appropriate in 1-3 Days. Serum creatinine levels will be ordered daily for the first week of therapy and at least twice weekly for subsequent weeks. Gisele Mello RPH CTOR VIDEO * Plan of Care - Juanita Dodd RN - 10/14/2024 5:01 AM CST Care from [phone] Inpatient Progress Note: For complete assessment see flow sheet documentation. Alert and oriented, slow to talk but able to make needs known. Now on oxygen at 5LPM via oxymask from 2LPM/NC. Complained of SOB associated with pain, PRN po Oxycodone and Atarax given. Blood sugar checked every 4 hours. Had one time dose of 6 units Novolog at midnight. On IV Ceftriaxone and Azithromycin. See separate note for events overnight. Goal Outcome Evaluation: Plan of Care Reviewed With: patient Overall Patient Progress: no changeOverall Patient Progress: no change Outcome Evaluation: short of breath and having high blood sugars Problem: Adult Inpatient Plan of Care Goal: Plan of Care Review Description: The Plan of Care Review/Shift note should be completed every shift. The Outcome Evaluation is a brief statement about your assessment that the patient is improving, declining, or no change. This information will be displayed automatically on your shift note. Outcome: Progressing Flowsheets (Taken 10/14/2024 0500) Outcome Evaluation: short of breath and having high blood sugars Plan of Care Reviewed With: patient Overall Patient Progress: no change Goal: Patient-Specific Goal (Individualized) Description: You can add care plan individualizations to a care plan. Examples of Individualizationmight be: Parent requests to be called daily at 9am for status, I have a hard time hearing out of my right ear, or Do not touch me to wake me up as it startles me. Outcome: Progressing Goal: Absence of Hospital-Acquired Illness or Injury Outcome: Progressing Intervention: Identify and Manage Fall Risk Recent Flowsheet Documentation Taken 10/13/20242148 by Juanita Dodd RN Safety Promotion/Fall Prevention: activity supervised Intervention: Prevent Skin Injury Recent Flowsheet Documentation Taken 10/13/20242148 by Juanita Dodd RN Body Position: position changed independently Intervention: Prevent and Manage VTE (Venous Thromboembolism) Risk Recent Flowsheet Documentation Taken 10/13/20242148 by Juanita Dodd RN VTE Prevention/Management: SCDs off (sequential compression devices) Intervention: Prevent Infection Recent Flowsheet Documentation Taken 10/13/20242148 by Juanita Dodd RN Infection Prevention: rest/sleep promoted Goal: Optimal Comfort and Wellbeing Outcome: Progressing Intervention: Monitor Pain and Promote Comfort Recent Flowsheet Documentation Taken 10/14/2024 0447 by Juanita Dodd RN Pain Management Interventions: medication (see MAR) Taken 10/13/2024 2244 by Juanita Dodd RN Pain Management Interventions: medication (see MAR) Goal: Readiness for Transition of Care Outcome: Progressing Problem: Pneumonia Goal: Fluid Balance Outcome: Progressing Goal: Resolution of Infection Signs and Symptoms Outcome: Progressing Problem: Comorbidity Management Goal: Blood Glucose Levels Within Targeted Range Outcome: Progressing Intervention: Monitor and Manage Glycemia Recent Flowsheet Documentation Taken 10/13/20242148 by Juanita Dodd RN Medication Review/Management: medications reviewed Goal: Maintenance of Heart Failure Symptom Control Outcome: Progressing Intervention: Maintain Heart Failure Management Recent Flowsheet Documentation Taken 10/13/20242148 by Juanita Dodd RN Medication Review/Management: medications reviewed Goal: Maintenance of Seizure Control Outcome: Progressing Intervention: Maintain Seizure Symptom Control Recent Flowsheet Documentation Taken 10/13/20242148 by Juanita Dodd RN Sensory Stimulation Regulation: care clustered Medication Review/Management: medications reviewed CTOR VIDEO * Provider Notification - Juanita Dodd RN - 10/14/2024 2:43 AM DIRECTOR VIDEO Patient complaining of SOB and new hypoxia O2 Sats 84-85 on 2LPM/NC increased O2 to 4 LPM/NC but still remained 85-87 %. VS 130/ 73 OH 82 RR 19 T 97.7. Patient was supposed to be on CPAP at bedtime but unable to tolerate it. Please review pt. THanks. Per Crow Galan : Switch oxygen to Oxymask at 5LPM Stopped IV fluids Chest xray IV Lasix 20 mg given CTOR VIDEO CTOR VIDEO CTOR VIDEO * Provider Notification - Juanita Dodd RN - 10/14/2024 12:06 AM DIRECTOR VIDEO Patient's latest blood sugar 349. LILLIANA Walsh advised to let Crow know about midnight blood sugar. Thanks. CTOR VIDEO * Provider Notification - Juanita Dodd RN - 10/13/2024 8:56 PM DIRECTOR VIDEO Patient informed RN that his blood sugar machine alerted him unable to read, blood sugar checked 377 and was 383 at suppertime had 5 units of NOvolog, can I give the bedtime insulin now. Please advise. Thanks. CTOR VIDEO * Plan of Care - Caterina Stack RN - 10/13/2024 7:06 PM CST INPATIENT PLAN OF CARE PROGRESS NOTE Goal Outcome Evaluation: Plan of Care Reviewed With: patient Overall Patient Progress: improvingOverall Patient Progress: improving Outcome Evaluation: A&Ox4. Remains on 2L of O2 via NC at rest. Strongly encouraged use of IS. C/o 10/10 RLQ abdominal pain throughout the day. Given PRN Tylenol, Oxycodone, Atarax, IV Dilaudid, cold and heat applied for comfort. Pt is very anxious. Took one bite of breakfast and spit out food this AM. Only ate a few bites of applesauce throughout the day. BS active x4, MOD/CHO diet with sliding scale insulin, carb coverage, very poor appetite, passing flatus. 2,000 mL fluid restriction. Voiding in adequate amt's w/ some hesitancy and frequency via urinal. Urine is clear stephania, specimen sent to lab this evening. Plan to continue scheduled abx and pain management, re-check Na. IVF infusing. Problem: Adult Inpatient Plan of Care Goal: Plan of Care Review Description: The Plan of Care Review/Shift note should be completed every shift. The Outcome Evaluation is a brief statement about your assessment that the patient is improving, declining, or no change. This information will be displayed automatically on your shift note. 10/13/20241899 by Caterina Stack RN Outcome: Progressing Flowsheets (Taken 10/13/20241899) Outcome Evaluation: A&Ox4. Remains on 2L of O2 via NC at rest. Strongly encouraged use of IS. C/o 10/10 RLQ abdominal pain throughout the day. Given PRN Tylenol, Oxycodone, Atarax, IV Dilaudid, cold and heat applied for comfort. Pt is very anxious. Took one bite of breakfast and spit out food this AM. Only ate a few bites of applesauce throughout the day. BS active x4, MOD/CHO diet with sliding scale insulin, carb coverage, very poor appetite, passing flatus. 2,000 mL fluid restriction. Voiding in adequate amt's w/ some hesitancy and frequency via urinal. Urine is clear stephania, specimen sent to lab this evening. Plan to continue scheduled abx and pain management, re-check Na. IVF infusing. Plan of Care Reviewed With: patient Overall Patient Progress: improving 10/13/20241046 by Caterina Stack RN Outcome: Progressing Flowsheets (Taken 10/13/20241045) Outcome Evaluation: A&Ox4. Remains on 2L of O2 via NC at rest. C/o RLQ abdominal pain. Given PRN Tylenol, Oxycodone, Atarax, IV Dilaudid. Pt is very anxious. Took one bite of breakfast and spit out food this AM. BS active x4, passing flatus. Voiding in adequate amt's w/ some hesitancy and frequency. Urine is dark stephania. Plan to continue scheduled abx and pain management. SL between abx. Plan of Care Reviewed With: patient Overall Patient Progress: no change 10/13/20241046 by Caterina Stack RN Reactivated Flowsheets (Taken 10/13/20241045) Outcome Evaluation: A&Ox4. Remains on 2L of O2 via NC at rest. C/o RLQ abdominal pain. Given PRN Tylenol, Oxycodone, Atarax, IV Dilaudid. Pt is very anxious. Took one bite of breakfast and spit out food this AM. BS active x4, passing flatus. Voiding in adequate amt's w/ some hesitancy and frequency. Urine is dark stephania. Plan to continue scheduled abx and pain management. SL between abx. Plan of Care Reviewed With: patient Overall Patient Progress: no change Goal: Patient-Specific Goal (Individualized) Description: You can add care plan individualizations to a care plan. Examples of Individualizationmight be: Parent requests to be called daily at 9am for status, I have a hard time hearing out of my right ear, or Do not touch me to wake me up as it startles me. 10/13/2024 1900 by Caterina Stack, MENDEL Outcome: Progressing 10/13/20241046 by Caterina Stack RN Outcome: Progressing 10/13/20241046 by Caterina Stack RN Reactivated Goal: Absence of Hospital-Acquired Illness or Injury 10/13/2024 1900 by Caterina Stack RN Outcome: Progressing 10/13/2024 1047 by Caterina Stack RN Outcome: Progressing 10/13/2024 1047 by Caterina Stack RN Reactivated Intervention: Identify and Manage Fall Risk Recent Flowsheet Documentation Taken 10/13/2024 0939 by Caterina Stack RN Safety Promotion/Fall Prevention: activity supervised assistive device/personal items within reach nonskid shoes/slippers when out of bed patient and family education room near nurse's station supervised activity safety round/check completed clutter free environment maintained room organization consistent treat underlying cause treat reversible contributory factors Intervention: Prevent Skin Injury Recent Flowsheet Documentation Taken 10/13/2024 09 by Caterina Stack RN Body Position: position changed independently Skin Protection: adhesive use limited tubing/devices free from skin contact Intervention: Prevent and Manage VTE (Venous Thromboembolism) Risk Recent Flowsheet Documentation Taken 10/13/2024 0939 by Caterina Stack RN VTE Prevention/Management: SCDs off (sequential compression devices) Intervention: Prevent Infection Recent Flowsheet Documentation Taken 10/13/2024 09 by Caterina Stack RN Infection Prevention: hand hygiene promoted rest/sleep promoted equipment surfaces disinfected environmental surveillance performed Goal: Optimal Comfort and Wellbeing 10/13/2024 1900 by Caterina Stack RN Outcome: Progressing 10/13/2024 1047 by Caterina Stack RN Outcome: Progressing 10/13/2024 1047 by Caterina Stack RN Reactivated Intervention: Monitor Pain and Promote Comfort Recent Flowsheet Documentation Taken 10/13/2024 1838 by Caterina Stack RN Pain Management Interventions: medication (see MAR) rest repositioned Taken 10/13/2024 1837 by Caterina Stack RN Pain Management Interventions: cold applied Taken 10/13/2024 1755 by Caterina Stack RN Pain Management Interventions: repositioned rest Taken 10/13/2024 1710 by Caterina Stack RN Pain Management Interventions: cold applied Taken 10/13/2024 1431 by Caterina Stack RN Pain Management Interventions: cold applied Taken 10/13/2024 1419 by Caterina Stack RN Pain Management Interventions: repositioned rest Taken 10/13/2024 1337 by Caterina Stack RN Pain Management Interventions: medication (see MAR) Taken 10/13/2024 1301 by Caterina Stack RN Pain Management Interventions: repositioned rest Taken 10/13/2024 1130 by Caterina Stack RN Pain Management Interventions: repositioned rest Taken 10/13/2024 1025 by Caterina Stack RN Pain Management Interventions: rest repositioned Taken 10/13/2024 1013 by Caterina Stack RN Pain Management Interventions: medication (see MAR) Taken 10/13/2024 0934 by Caterina Stack RN Pain Management Interventions: medication (see MAR) Taken 10/13/2024 0910 by Caterina Stack RN Pain Management Interventions: medication (see MAR) Goal: Readiness for Transition of Care 10/13/2024 1900 by Caterina Stack RN Outcome: Progressing 10/13/2024 1047 by Caterina Stack RN Outcome: Progressing 10/13/2024 1047 by Caterina Stack RN Reactivated Intervention: Mutually Develop Transition Plan Recent Flowsheet Documentation Taken 10/13/2024 0700 by Caterina Stack RN Equipment Currently Used at Home: none Problem: Pneumonia Goal: Fluid Balance 10/13/2024 1900 by Caterina Stack RN Outcome: Progressing 10/13/2024 1047 by Caterina Stack RN Outcome: Progressing Intervention: Monitor and Manage Fluid Balance Recent Flowsheet Documentation Taken 10/13/2024 0939 by Caterina Stack RN Fluid/Electrolyte Management: fluids provided Goal: Resolution of Infection Signs and Symptoms 10/13/2024 1900 by Caterina Stack RN Outcome: Progressing 10/13/2024 1047 by Caterina Stack RN Outcome: Progressing Intervention: Prevent Infection Progression Recent Flowsheet Documentation Taken 10/13/2024 0939 by Caterina Stack RN Isolation Precautions: droplet precautions maintained Problem: Comorbidity Management Goal: Blood Glucose Levels Within Targeted Range 10/13/2024 1900 by Caterina Stack RN Outcome: Progressing 10/13/2024 1047 by Caterina Stack RN Outcome: Progressing Intervention: Monitor and Manage Glycemia Recent Flowsheet Documentation Taken 10/13/2024 09 by Caterina Stack RN Medication Review/Management: medications reviewed high-risk medications identified Goal: Maintenance of Heart Failure Symptom Control 10/13/2024 1900 by Caterina Stack RN Outcome: Progressing 10/13/2024 104 by Caterina Stack RN Outcome: Progressing Intervention: Maintain Heart Failure Management Recent Flowsheet Documentation Taken 10/13/2024 09 by Caterina Stack RN Medication Review/Management: medications reviewed high-risk medications identified Goal: Maintenance of Seizure Control 10/13/20241899 by Caterina Stack RN Outcome: Progressing 10/13/2024 104 by Caterina Stack RN Outcome: Progressing Intervention: Maintain Seizure Symptom Control Recent Flowsheet Documentation Taken 10/13/2024938 by Caterina Stack RN Seizure Precautions: activity supervised clutter-free environment maintained Medication Review/Management: medications reviewed high-risk medications identified CTOR VIDEO * Plan of Care - Aurora Whitlock RN - 10/13/2024 5:40 AM CST Goal Outcome Evaluation: Plan of Care Reviewed With: patient Overall Patient Progress: no changeOverall Patient Progress: no change Outcome Evaluation: AOX4. VSS on RA. Continuous pulse ox. Pt having severe pain despite having tyelnol and oxy, crosscover changed oxy to Q4h PRN. Problem: Adult Inpatient Plan of Care Goal: Plan of Care Review Description: The Plan of Care Review/Shift note should be completed every shift. The Outcome Evaluation is a brief statement about your assessment that the patient is improving, declining, or no change. This information will be displayed automatically on your shift note. Outcome: Adequate for Care Transition Flowsheets (Taken 10/13/2024 0220) Outcome Evaluation: AOX4. Plan of Care Reviewed With: patient Overall Patient Progress: no change Goal: Patient-Specific Goal (Individualized) Description: You can add care plan individualizations to a care plan. Examples of Individualizationmight be: Parent requests to be called daily at 9am for status, I have a hard time hearing out of my right ear, or Do not touch me to wake me up as it startles me. Outcome: Adequate for Care Transition Goal: Absence of Hospital-Acquired Illness or Injury Outcome: Adequate for Care Transition Intervention: Prevent Infection Recent Flowsheet Documentation Taken 10/12/2024 7354 by Aurora Whitlock RN Infection Prevention: hand hygiene promoted rest/sleep promoted Goal: Optimal Comfort and Wellbeing Outcome: Adequate for Care Transition Goal: Readiness for Transition of Care Outcome: Adequate for Care Transition CTOR VIDEO * Provider Notification - Aurora Whitlock RN - 10/13/2024 4:56 AM DIRECTOR VIDEO Pt having severe pain despite oxy and tylenol given. Provider paged and changed oxy order to every 4 hours PRN. CTOR VIDEO * Pharmacy-Admission Medication History - Pj Pruitt [facility] - 10/12/2024 1:23 PM CST Pharmacist Admission Medication History Admission medication history is complete. The information provided in this note is only as accurateas the sources available at the time of the update. Information Source(s): Patient, Family member, Clinic records, and [facility] Pertinent Information: Patient took all AM meds today except lisinopril d/t lower BP. Family memberreports he will usually hold his lisinopril for SBP < 130. They also tend to treat a BG of 90 mg/dL otherwise he will drop to < 70 and takes multiple hours for his BG to come back up with treatment. Patient's insulin pump will on 10/13/24 at 0935. Informed his of this and that she will need to bring in his pump supplies tomorrow AM so it can be replaced. Changes made to MANAGER OF SOFTWARE medication list: Added: insulin pump settings Deleted: aspirin, Lunesta Changed: Melatonin 5mg HS PRN --> 10mg HS Ezetimibe daily --> qPM Allergies reviewed with patient and updates made in EHR: no Medication History Completed By: PJ PRUITT RP 10/12/2024 1:23 PM MANAGER OF SOFTWARE Med List Medication Sig Note Last Dose/Taking apixaban ANTICOAGULANT (ELIQUIS ANTICOAGULANT) 5 MG tablet Take 1 tablet (5 mg) by mouth 2 times daily. Discontinue when bottle is completed and start ASA 10/12/2024 Morning carvedilol (COREG) 12.5 MG tablet Take 1 tablet (12.5 mg) by mouth 2 times daily (with meals) 10/12/2024 Morning cholecalciferol (VITAMIN D3) 125 mcg (5000 units) capsule Take 125 mcg by mouth daily. 10/12/2024 Morning Continuous Glucose Sensor ([employer] G7 SENSOR) MISC Change every 10 days. Taking ezetimibe (ZETIA) 10 MG tablet Take 10 mg by mouth every evening. 10/11/2024 Evening insulin aspart (NOVOLOG VIAL) 100 UNITS/ML vial Uses about 80 units per day Taking Insulin Disposable Pump (OMNIPOD 5 G7 PODS, GEN 5,) MISC 1 pod See Admin Instructions. Change every3 days Taking insulin glargine (LANTUS PEN) 100 UNIT/ML pen 20 units if pod fails Unknown INSULIN PUMP - OUTPATIENT Inject subcutaneously. Date Last Updated: 10/12/24 Omnipod BASAL RATES and times: Continuous (1385-5072: 0.9 units/hour CARB RATIO and times: 2468-2018: 1 unit for 10g of carbohydrates Corection Factor (Sensitivity) and times: 3373-1898: 1 unit lowers BG by 40 mg/dL BLOOD GLUCOSE TARGET and times: 110 - 120 mg/dL Active Insulin Time: 2.5 hours Sensor: Yes: lower limit = 70 mg/dL, upper limit = 180 mg/dL Changes pump q3d 10/12/2024: Pump will on 10/13/24 @0935 and need to be replaced 10/12/2024 insulin syringe-needle U-100 (30G X 1/2 0.3 ML) 30G X 1/2 0.3 ML miscellaneous Use in the event of pump failure and need to administer manual injection. Taking LAMOTRIGINE PO Take 300 mg by mouth 2 times daily 10/12/2024 Morning lisinopril (ZESTRIL) 30 MG tablet Take 1 tablet (30 mg) by mouth daily. 10/12/2024: Usually will hold if SBP < 130 10/11/2024 Morning Melatonin 10 MG TABS tablet Take 10 mg by mouth at bedtime. 10/11/2024 Bedtime metFORMIN (GLUCOPHAGE) 500 MG tablet Take 1 tablet (500 mg) by mouth daily (with dinner) 10/11/2024 Evening modafinil (PROVIGIL) 200 MG tablet Take 0.5-1 tablets (100-200 mg) by mouth daily as needed (daytime sleepiness) Unknown Multiple Vitamins-Minerals (MENS MULTI VITAMIN & MINERAL PO) Take 1 tablet by mouth daily 10/12/2024 Morning Psyllium (METAMUCIL FIBER PO) Take 1 Dose by mouth daily. 10/12/2024 Morning sildenafil (VIAGRA) 100 MG tablet Take 1 tablet (100 mg) by mouth daily as needed (30 minutes priorto sexual activity) Unknown tiZANidine (ZANAFLEX) 2 MG tablet TAKE 1-2 TABLETS BY MOUTH EVERY NIGHT AT BEDTIME NEEDED DIRECTED FOR LOW BACK PAIN* Unknown vitamin C (ASCORBIC ACID) 1000 MG TABS Take 1 tablet by mouth daily 10/12/2024 Morning zinc gluconate 50 MG tablet Take 50 mg by mouth daily 10/12/2024 Morning CTOR VIDEO documented in this encounter Plan of Treatment Upcoming Encounters Date Type Department Care Team (Late st Contact Info) Description 12/17/2024 9:30 AM CDT Lab [facility] [address] [place] [address] 12/23/2024 4:00 PM CDT Office Visit [address] [phone] Cyrus Aleman MD [address] [place] [phone] 01/27/2025 10:00 AM CDT Office Visit [facility] Neurology [address] [phone] Anel Long, RFID ENGINEER [address] [place] [phone] Coni Dhaliwal, CLINICAL INFORMATICS STRATEGIST [address] [place] [id number] 04/14/2025 11:15 AM CDT Office Visit [facility] [address] [facility] [address] [place] [phone] Inessa Esteves, [address] [place] [id number] 06/05/2025 12:30 PM CDT Office Visit [facility] [address] [phone] Stephie Mahoney MD [address] [place] [phone] 11/13/2025 11:00 AM CDT Virtual Visit [facility] Endocrinology [address] [phone] Stephie Mahoney MD [address] [place] [phone] Pending Results Name Type Priority Associated Diagnoses Date /Time ZIO PATCH MAIL OUT Zio Patch Mail Out Routine 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 of right middle cerebral artery (H) 12/10/2024 9:20 AM CDT Scheduled Referrals Name Type Priority Associated Diagnoses Order Schedule Primary Care - Care Coordination Referral Referral Routine: Next available opening Pneumonia of both lower lobes due to infectious organism Expected: 10/14/2024 (Approximate), Expires: 10/14/2025 documented as of this encounter Procedures Procedure Name Priority Date/Time Associated Diagnosis Comments GLUCOSE BY METER Routine 10/29/2024 1:27 PM CDT GLUCOSE BY METER Routine 10/29/2024 8:32 AM CDT EXTRA TUBE Routine 10/29/2024 7:30 AM CDT EXTRA PURPLE TOP TUBE Routine 10/29/2024 7:30 AM CDT PHOSPHORUS Routine 10/29/2024 7:30 AM CDT MAGNESIUM Routine 10/29/2024 7:30 AM CDT GLUCOSE BY METER Routine 10/29/2024 5:25 AM CDT GLUCOSE BY METER Routine 10/29/2024 1:51 AM CDT GLUCOSE BY METER Routine 10/28/2024 10:0 0 PM CDT GLUCOSE BY METER Routine 10/28/2024 5:18 PM CDT GLUCOSE BY METER Routine 10/28/2024 1:27 PM CDT GLUCOSE BY METER Routine 10/28/2024 8:26 AM CDT EXTRA PURPLE TOP EDTA (LAB USE ONLY) Routine 10/28/2024 6:18 AM CDT POTASSIUM Add-On 10/28/2024 6:18 AM CDT PHOSPHORUS Routine 10/28/2024 6:18 AM CDT MAGNESIUM Routine 10/28/2024 6:18 AM CDT GLUCOSE BY [...] BY METER Routine 10/27/2024 9:07 AM CDT PHOSPHORUS Routine 10/27/2024 8:02 AM CDT MAGNESIUM Routine 10/27/2024 8:02 AM CDT LDL CHOLESTEROL DIRECT Add-On 8:02 AM CDT GLUCOSE BY METER Routine 10/27/2024 1:18 AM CDT GLUCOSE BY METER Routine 10/26/2024 9:02 PM CDT GLUCOSE BY METER Routine 10/26/2024 5:07 PM CDT GLUCOSE BY METER Routine 10/26/2024 12:3 1 PM CDT GLUCOSE BY METER Routine 10/26/2024 8:54 AM CDT EXTRA TUBE Routine 10/26/2024 7:13 AM CDT EXTRA PURPLE TOP TUBE Routine 10/26/2024 7:13 AM CDT PHOSPHORUS Routine 10/26/2024 7:13 AM CDT MAGNESIUM Routine 10/26/2024 7:13 AM CDT HEMOGLOBIN A1C Add-On 10/26/2024 7:13 AM CDT GLUCOSE BY METER Routine 10/26/2024 1:48 AM DIRECTOR VIDEO GLUCOSE BY METER Routine 10/25/2024 9:30 PM DIRECTOR VIDEO GLUCOSE BY METER Routine 10/25/2024 6:10 PM DIRECTOR VIDEO GLUCOSE BY METER Routine 10/25/2024 12:4 1 PM DIRECTOR VIDEO GLUCOSE BY METER Routine 10/25/2024 8:19 AM DIRECTOR VIDEO EXTRA TUBE Routine 10/25/2024 7:13 AM DIRECTOR VIDEO EXTRA PURPLE TOP TUBE Routine 10/25/2024 7:13 AM DIRECTOR VIDEO PHOSPHORUS Routine 10/25/2024 7:13 AM DIRECTOR VIDEO MAGNESIUM Routine 10/25/2024 7:13 AM DIRECTOR VIDEO GLUCOSE BY METER Routine 10/25/2024 1:08 AM DIRECTOR VIDEO GLUCOSE BY METER Routine 10/24/2024 9:19 PM DIRECTOR VIDEO GLUCOSE BY METER Routine 10/24/2024 6:23 PM DIRECTOR VIDEO CRP INFLAMMATION Routine 10/24/2024 1:33 PM DIRECTOR VIDEO GLUCOSE BY METER Routine 10/24/2024 1:09 PM DIRECTOR VIDEO GLUCOSE BY METER Routine 10/24/2024 9:41 AM DIRECTOR VIDEO GLUCOSE BY METER Routine 10/24/2024 8:15 AM DIRECTOR VIDEO EXTRA PURPLE TOP EDTA (LAB USE ONLY) Routine 10/24/2024 6:25 AM DIRECTOR VIDEO PHOSPHORUS Routine 10/24/2024 6:25 AM DIRECTOR VIDEO MAGNESIUM Routine 10/24/2024 6:25 AM DIRECTOR VIDEO GLUCOSE BY METER Routine 10/24/2024 6:10 AM DIRECTOR VIDEO GLUCOSE BY METER Routine 10/24/2024 2:11 AM DIRECTOR VIDEO GLUCOSE BY METER Routine 10/23/2024 9:[address] CHEST W/O CONTRAST Routine 10/23/2024 8:29 PM DIRECTOR VIDEO GLUCOSE BY METER Routine 10/23/2024 5:[address] HEAD W/O CONTRAST STAT 10/23/2024 1:38 PM DIRECTOR VIDEO BLOOD GAS VENOUS STAT 10/23/2024 1:04 PM DIRECTOR VIDEO BASIC METABOLIC PANEL STAT 10/23/2024 1:04 PM DIRECTOR VIDEO CBC WITH PLATELETS STAT 10/23/2024 1: 04 PM DIRECTOR VIDEO GLUCOSE BY METER Routine 10/23/2024 12:2 6 PM DIRECTOR VIDEO XR CHEST PORT 1 VIEW STAT 10/23/2024 8:59 AM DIRECTOR VIDEO GLUCOSE BY METER Routine 10/23/2024 8:44 AM DIRECTOR VIDEO EXTRA PURPLE TOP EDTA (LAB USE ONLY) Routine 10/23/2024 6:41 AM DIRECTOR VIDEO PHOSPHORUS Routine 10/23/2024 6:41 AM DIRECTOR VIDEO MAGNESIUM Routine 10/23/2024 6:41 AM DIRECTOR VIDEO GLUCOSE BY METER Routine 10/23/2024 2:08 AM DIRECTOR VIDEO GLUCOSE BY METER Routine 10/22/2024 9:32 PM DIRECTOR VIDEO GLUCOSE BY METER Routine 10/22/2024 4:45 PM DIRECTOR VIDEO PROCALCITONIN Routine 10/22/2024 12:14 PM DIRECTOR VIDEO CRP INFLAMMATION Routine 10/22/2024 12:1 4 PM DIRECTOR VIDEO GLUCOSE BY METER Routine 10/22/2024 12:0 0 PM DIRECTOR VIDEO XR CHEST PORT 1 VIEW Routine 10/22/2024 9:27 AM DIRECTOR VIDEO GLUCOSE BY METER Routine 10/22/2024 8:07 AM DIRECTOR VIDEO PHOSPHORUS Routine 10/22/2024 7:03 AM DIRECTOR VIDEO MAGNESIUM Routine 10/22/2024 7:03 AM DIRECTOR VIDEO BASIC METABOLIC PANEL Routine 10/22/2024 7:03 AM DIRECTOR VIDEO CBC WITH PLATELETS Routine 10/22/2024 7: 03 AM DIRECTOR VIDEO GLUCOSE BY METER Routine 10/22/2024 2:35 AM DIRECTOR VIDEO GLUCOSE BY METER Routine 10/21/2024 9:58 PM DIRECTOR VIDEO GLUCOSE BY METER Routine 10/21/2024 5:26 PM DIRECTOR VIDEO GLUCOSE BY METER Routine 10/21/2024 1:24 PM DIRECTOR VIDEO GLUCOSE BY METER Routine 10/21/2024 9:06 AM DIRECTOR VIDEO PHOSPHORUS Routine 10/21/2024 6:05 AM DIRECTOR VIDEO MAGNESIUM Routine 10/21/2024 6:05 AM DIRECTOR VIDEO GLUCOSE BY METER Routine 10/21/2024 3:40 AM DIRECTOR VIDEO GLUCOSE BY METER Routine 10/21/2024 1:55 AM DIRECTOR VIDEO GLUCOSE BY METER Routine 10/20/2024 9:14 PM DIRECTOR VIDEO GLUCOSE BY METER Routine 10/20/2024 5:26 PM DIRECTOR VIDEO EXTRA TUBE Routine 10/20/2024 7:15 AM DIRECTOR VIDEO EXTRA PURPLE TOP TUBE Routine 10/20/2024 7:15 AM DIRECTOR VIDEO PHOSPHORUS Routine 10/20/2024 7:15 AM DIRECTOR VIDEO MAGNESIUM Routine 10/20/2024 7:15 AM DIRECTOR VIDEO GLUCOSE BY METER Routine 10/20/2024 6:00 AM DIRECTOR VIDEO GLUCOSE BY METER Routine 10/20/2024 5:11 AM DIRECTOR VIDEO GLUCOSE BY METER Routine 10/20/2024 2:03 AM DIRECTOR VIDEO GLUCOSE BY METER Routine 10/20/2024 12:3 0 AM DIRECTOR VIDEO GLUCOSE BY METER Routine 10/20/2024 12:0 6 AM DIRECTOR VIDEO GLUCOSE BY METER Routine 10/19/2024 9:06 PM DIRECTOR VIDEO GLUCOSE BY METER Routine 10/19/2024 5:55 PM DIRECTOR VIDEO GLUCOSE BY METER Routine 10/19/2024 11:4 4 AM DIRECTOR VIDEO GLUCOSE BY METER Routine 10/19/2024 8:17 AM DIRECTOR VIDEO XR CHEST PORT 1 VIEW Routine 10/19/2024 8:16 AM DIRECTOR VIDEO EXTRA PURPLE TOP EDTA (LAB USE ONLY) Routine 10/19/2024 6:34 AM DIRECTOR VIDEO PHOSPHORUS Routine 10/19/2024 6:34 AM DIRECTOR VIDEO MAGNESIUM Routine 10/19/2024 6:34 AM DIRECTOR VIDEO CREATININE Routine 10/19/2024 6:34 AM DIRECTOR VIDEO GLUCOSE BY METER Routine 10/19/2024 2:17 AM DIRECTOR VIDEO GLUCOSE BY METER Routine 10/18/2024 9:31 PM DIRECTOR VIDEO GLUCOSE BY METER Routine 10/18/2024 4:40 PM DIRECTOR VIDEO GLUCOSE BY METER Routine 10/18/2024 12:5 7 PM DIRECTOR VIDEO GLUCOSE BY METER Routine 10/18/2024 8:27 AM DIRECTOR VIDEO EXTRA PURPLE TOP EDTA (LAB USE ONLY) Routine 10/18/2024 6:33 AM DIRECTOR VIDEO PHOSPHORUS Routine 10/18/2024 6:33 AM DIRECTOR VIDEO MAGNESIUM Routine 10/18/2024 6:33 AM DIRECTOR VIDEO BASIC METABOLIC PANEL Routine 10/18/2024 6:33 AM DIRECTOR VIDEO GLUCOSE BY METER Routine 10/18/2024 2:15 AM DIRECTOR VIDEO GLUCOSE BY METER Routine 10/17/2024 9:08 PM DIRECTOR VIDEO GLUCOSE BY METER Routine 10/17/2024 5:27 PM DIRECTOR VIDEO XR CHEST PORT 1 VIEW STAT 10/17/2024 3:37 PM DIRECTOR VIDEO GLUCOSE BY METER Routine 10/17/2024 12:4 3 PM DIRECTOR VIDEO GLUCOSE BY METER Routine 10/17/2024 8:25 AM DIRECTOR VIDEO EXTRA PURPLE TOP EDTA (LAB USE ONLY) Routine 10/17/2024 6:53 AM DIRECTOR VIDEO PHOSPHORUS Routine 10/17/2024 6:53 AM DIRECTOR VIDEO MAGNESIUM Routine 10/17/2024 6:53 AM DIRECTOR VIDEO CREATININE Routine 10/17/2024 6:53 AM DIRECTOR VIDEO GLUCOSE BY METER Routine 10/17/2024 2:21 AM DIRECTOR VIDEO GLUCOSE BY METER Routine 10/16/2024 9:42 PM DIRECTOR VIDEO GLUCOSE BY METER Routine 10/16/2024 5:37 PM DIRECTOR VIDEO GLUCOSE BY METER Routine 10/16/2024 12:0 5 PM DIRECTOR VIDEO US CHEST TUBE INSERT Routine 10/16/2024 11:46 AM DIRECTOR VIDEO GLUCOSE BY METER Routine 10/16/2024 8:14 AM DIRECTOR VIDEO PHOSPHORUS Routine 10/16/2024 7:44 AM DIRECTOR VIDEO MAGNESIUM Routine 10/16/2024 7:44 AM DIRECTOR VIDEO CREATININE Routine 10/16/2024 7:44 AM DIRECTOR VIDEO GLUCOSE BY METER Routine 10/16/2024 1:18 AM DIRECTOR VIDEO GLUCOSE BY METER Routine 10/15/2024 9:21 PM DIRECTOR VIDEO GLUCOSE BY METER Routine 10/15/2024 6:[address] CHEST W/O CONTRAST Routine 10/15/2024 3:37 PM DIRECTOR VIDEO MR BRAIN W/O & W CONTRAST Routine 10/15/2024 3:25 PM DIRECTOR VIDEO GLUCOSE BY METER Routine 10/15/2024 11:5 1 AM DIRECTOR VIDEO GLUCOSE BY METER Routine 10/15/2024 8:02 AM DIRECTOR VIDEO GLUCOSE BY METER Routine 10/15/2024 6:40 AM DIRECTOR VIDEO CBC WITH PLATELETS AND DIFFERENTIAL Routine 10/15/2024 5:45 AM DIRECTOR VIDEO CBC WITH PLATELETS & DIFFERENTIAL Routine 10/15/2024 5:45 AM DIRECTOR VIDEO PHOSPHORUS Routine 10/15/2024 5:45 AM DIRECTOR VIDEO MAGNESIUM Routine 10/15/2024 5:45 AM DIRECTOR VIDEO BASIC METABOLIC PANEL Routine 10/15/2024 5:45 AM DIRECTOR VIDEO LACTIC ACID WHOLE BLOOD WITH 1X REPEAT IN 2 HR WHEN >2 STAT 10/15/2024 2:30 AM DIRECTOR VIDEO GLUCOSE BY METER Routine 10/15/2024 2:17 AM DIRECTOR VIDEO EKG 12-LEAD, TRACING ONLY STAT 10/15/2024 1:33 AM DIRECTOR VIDEO GLUCOSE BY METER Routine 10/14/2024 10:0 5 PM DIRECTOR VIDEO GLUCOSE BY METER Routine 10/14/2024 6:11 PM DIRECTOR VIDEO MR LIVER W/O & W CONTRAST Routine 10/14/2024 4:17 PM DIRECTOR VIDEO MRSA MSSA PCR, NASAL SWAB Routine 10/14/2024 1:30 PM DIRECTOR VIDEO GLUCOSE BY METER Routine 10/14/2024 11:3 8 AM DIRECTOR VIDEO US THORACENTESIS Routine 10/14/2024 11:1 3 AM DIRECTOR VIDEO DIFERENTIAL BODY FLUID Routine 11:08 AM DIRECTOR VIDEO CELL COUNT BODY FLUID Routine 10/14/2024 11:08 AM DIRECTOR VIDEO NON-GYNECOLOGIC CYTOLOGY Routine 10/14/2024 11:08 AM DIRECTOR VIDEO AEROBIC BACTERIAL CULTURE ROUTINE Routine 10/14/2024 11:08 AM DIRECTOR VIDEO PROTEIN FLUID Routine 10/14/2024 11:08 AM DIRECTOR VIDEO LACTATE DEHYDROGENASE FLUID Routine 10/14/2024 11:08 AM DIRECTOR VIDEO GLUCOSE FLUID Routine 10/14/2024 11:08 AM DIRECTOR VIDEO CELL COUNT WITH DIFFERENTIAL FLUID Routine 10/14/2024 11:08 AM DIRECTOR VIDEO LACTATE DEHYDROGENASE Routine 10/14/2024 10:24 AM DIRECTOR VIDEO PROTEIN TOTAL Routine 10/14/2024 10:24 AM DIRECTOR VIDEO HEPATIC FUNCTION PANEL Add-On 10:24 AM DIRECTOR VIDEO GLUCOSE BY METER Routine 10/14/2024 8:16 AM DIRECTOR VIDEO CBC WITH PLATELETS AND DIFFERENTIAL Routine 10/14/2024 6:06 AM DIRECTOR VIDEO CBC WITH PLATELETS & DIFFERENTIAL Routine 10/14/2024 6:06 AM DIRECTOR VIDEO PHOSPHORUS Routine 10/14/2024 6:06 AM DIRECTOR VIDEO MAGNESIUM Routine 10/14/2024 6:06 AM DIRECTOR VIDEO BASIC METABOLIC PANEL Routine 10/14/2024 6:06 AM DIRECTOR VIDEO GLUCOSE BY METER Routine 10/14/2024 5:56 AM DIRECTOR VIDEO XR CHEST PORT 1 VIEW STAT 10/14/2024 3:39 AM DIRECTOR VIDEO GLUCOSE BY METER Routine 10/14/2024 2:10 AM DIRECTOR VIDEO GLUCOSE BY METER Routine 10/14/2024 2:05 AM DIRECTOR VIDEO GLUCOSE BY METER Routine 10/13/2024 11:5 6 PM DIRECTOR VIDEO GLUCOSE BY METER Routine 10/13/2024 8:47 PM DIRECTOR VIDEO SODIUM Timed 10/13/2024 7:55 PM DIRECTOR VIDEO SODIUM RANDOM URINE Routine 10/13/2024 6 :45 PM DIRECTOR VIDEO OSMOLALITY, RANDOM URINE Routine 10/13/2024 6:45 PM DIRECTOR VIDEO GLUCOSE BY METER Routine 10/13/2024 5:44 PM DIRECTOR VIDEO GLUCOSE BY METER Routine 10/13/2024 11:4 1 AM DIRECTOR VIDEO GLUCOSE BY METER Routine 10/13/2024 8:40 AM DIRECTOR VIDEO PHOSPHORUS Routine 10/13/2024 7:01 AM DIRECTOR VIDEO OSMOLALITY Add-On 10/13/2024 7:01 AM DIRECTOR VIDEO MAGNESIUM Routine 10/13/2024 7:01 AM DIRECTOR VIDEO COMPREHENSIVE METABOLIC PANEL Routine 10/13/2024 7:01 AM DIRECTOR VIDEO CBC WITH PLATELETS Routine 10/13/2024 7: 01 AM DIRECTOR VIDEO GLUCOSE BY METER Routine 10/13/2024 2:06 AM DIRECTOR VIDEO GLUCOSE BY METER Routine 10/12/2024 9:34 PM DIRECTOR VIDEO GLUCOSE BY METER STAT 10/12/2024 8:19 PM DIRECTOR VIDEO SODIUM STAT 10/12/2024 8:02 PM DIRECTOR VIDEO LEGIONELLA URINARY ANTIGEN AND STREPTOCOCCUS PNEUMONIAE ANTIGEN STAT 10/12/2024 7:29 PM DIRECTOR VIDEO GLUCOSE BY METER STAT 10/12/2024 5:08 PM DIRECTOR VIDEO SODIUM STAT 10/12/2024 3:19 PM DIRECTOR VIDEO TROPONIN T, HIGH SENSITIVITY STAT 10/12/2024 2:16 PM DIRECTOR VIDEO ROUTINE UA WITH MICROSCOPIC STAT 10/12/2024 1:[address] CHEST PE ABDOMEN PELVIS W CONTRAST STAT 10/12/2024 12:[address] HEAD W/O CONTRAST STAT 10/12/2024 12:11 PM DIRECTOR VIDEO BLOOD CULTURE STAT 10/12/2024 11:28 AM DIRECTOR VIDEO EKG 12-LEAD, TRACING ONLY STAT 10/12/2024 11:02 AM DIRECTOR VIDEO ISTAT CREATININE POCT STAT 10/12/2024 11:00 AM DIRECTOR VIDEO ISTAT GASES LACTATE VENOUS POCT STAT 10/12/2024 10:59 AM DIRECTOR VIDEO EXTRA TUBE STAT 10/12/2024 10:56 AM DIRECTOR VIDEO EXTRA GREEN TOP (LITHIUM HEPARIN) TUBE STAT 10/12/2024 10:56 AM DIRECTOR VIDEO EXTRA RED TOP TUBE STAT 10/12/2024 10 :56 AM DIRECTOR VIDEO EXTRA BLUE TOP TUBE STAT 10/12/2024 1 0:56 AM DIRECTOR VIDEO CBC WITH PLATELETS AND DIFFERENTIAL STAT 10/12/2024 10:55 AM DIRECTOR VIDEO TROPONIN T, HIGH SENSITIVITY STAT 10/12/2024 10:55 AM DIRECTOR VIDEO CBC WITH PLATELETS & DIFFERENTIAL STAT 10/12/2024 10:55 AM DIRECTOR VIDEO COMPREHENSIVE METABOLIC PANEL STAT 10/12/2024 10:55 AM DIRECTOR VIDEO BLOOD CULTURE STAT 10/12/2024 10:55 AM DIRECTOR VIDEO INFLUENZA A/B, RSV AND SARS-COV2 PCR STAT 10/12/2024 10:39 AM DIRECTOR VIDEO EKG CARDIAC - HIM SCAN 5 12:00 AM DIRECTOR VIDEO EKG CARDIAC - HIM SCAN 12:00 AM DIRECTOR VIDEO documented in this encounter Results * (ABNORMAL) Glucose by meter (10/29/2024 1:27 PM CDT) GLUCOSE BY METER POCT 105(H) 70 - 99 mg/dL 10/29/2024 1:33 PM CDT LABORATORY POC Blood, Capillary BLOOD SPECIMEN / Unknown 10/29/2024 1:27 PM CDT 10/29/2024 1:33 PM CDT Arielle Martel DO LAB - BEAKER POCT Final Re sult LABORATORY [facility] [address] Lab (1st floor, no room number) [place] [address] * (ABNORMAL) Glucose by meter (10/29/2024 8:32 AM CDT) GLUCOSE BY METER POCT 109(H) 70 - 99 mg/dL 10/29/2024 8:39 AM CDT LABORATORY POC Blood, Capillary BLOOD SPECIMEN / Unknown 10/29/2024 8:32 AM CDT 10/29/2024 8:39 AM CDT Arielle Martel DO LAB - BEAKER POCT Final Re sult LABORATORY [facility] [address] Lab (1st floor, no room number) [place] [phone] [place] [address] * Extra Purple Top Tube (10/29/2024 7:30 AM CDT) Hold Specimen JIC 10/29/2024 11:46 AM CDT RH LABORATORY Blood STRUCTURE OF RIGHT UPPER LIMB / Unknown Venipuncture / Unknown 10/29/2024 7:30 AM CDT 10/29/2024 10:44 AM CDT us Arielle Martel DO LAB - BLOOD ORDERABLES Fin al Result LABORATORY [facility] [address] Lab (1st floor, no room number) [address] * Magnesium (10/29/2024 7:30 AM CDT) Magnesium 2.0 1.7 - 2.3 mg/dL 10/29/2024 8:01 AM CDT RH LABORATORY Blood STRUCTURE OF RIGHT UPPER LIMB / Unknown Venipuncture / Unknown 10/29/2024 7:30 AM CDT 10/29/2024 7:34 AM CDT us Al Ian Sands MD LAB - BLOOD ORDERABLES Fi nal Result [facility] [address] Lab (1st floor, no room number) [place] [phone] * Phosphorus (10/29/2024 7:30 AM CDT) Phosphorus 3.9 2.5 - 4.5 mg/dL 10/29/2024 8:01 AM CDT RH LABORATORY Blood STRUCTURE OF RIGHT UPPER LIMB / Unknown Venipuncture / Unknown 10/29/2024 7:30 AM CDT 10/29/2024 7:34 AM CDT us Al Ian Sands MD LAB - BLOOD ORDERABLES Fi nal Result Performing Organization Address [facility]/ZIP Co de Phone Number LABORATORY [facility] [address] Lab (1st floor, no room number) [place] [phone] [place] [address] * Glucose by meter (10/29/2024 5:25 AM CDT) GLUCOSE BY METER POCT 95 70 - 99 mg/dL 10/29/2024 5:32 AM CDT RH LABORATORY POC Blood, Capillary BLOOD SPECIMEN / Unknown 10/29/2024 5:25 AM CDT 10/29/2024 5:32 AM CDT Arielle Martel DO LAB - BEAKER POCT Final Re sult Performing Organization Address [facility]/ZIP Co de Phone Number LABORATORY [facility] [address] Lab (1st floor, no room number) [place] [phone] * Glucose by meter (10/29/2024 1:51 AM CDT) GLUCOSE BY METER POCT 97 70 - 99 mg/dL 10/29/2024 1:58 AM CDT LABORATORY POC Blood, Capillary BLOOD SPECIMEN / Unknown 10/29/2024 1:51 AM CDT 10/29/2024 1:58 AM CDT Arielle Martel DO LAB - BEAKER POCT Final Re sult LABORATORY [facility] [address] Lab (1st floor, no room number) [place] [phone], [facility] * (ABNORMAL) Glucose by meter (10/28/2024 10:00 PM CDT) GLUCOSE BY METER POCT 147(H) 70 - 99 mg/dL 10/28/2024 10:07 PM CDT LABORATORY POC Blood, Capillary BLOOD SPECIMEN / Unknown 10/28/2024 10:00 PM CDT 10/28/2024 10:07 PM CDT Arielle Martel DO LAB - BEAKER POCT Final Re sult Performing Organization Address City/[facility]/ZIP Co de Phone Number LABORATORY [facility] [address] Lab (1st floor, no room number) [place] [address], [facility] * (ABNORMAL) Glucose by meter (10/28/2024 5:18 PM CDT) GLUCOSE BY METER POCT 347(H) 70 - 99 mg/dL 10/28/2024 5:24 PM CDT LABORATORY POC Blood, Capillary BLOOD SPECIMEN / Unknown 10/28/2024 5:18 PM CDT 10/28/2024 5:24 PM CDT Arielle Delonte LAB - BEAKER POCT Final Re sult Performing Organization Address [facility]/ZIP Co de Phone Number LABORATORY [facility] [address] Lab (1st floor, no room number) [place] [address], [facility] * (ABNORMAL) Glucose by meter (10/28/2024 1:27 PM CDT) GLUCOSE BY METER POCT 217(H) 70 - 99 mg/dL 10/28/2024 1:33 PM CDT LABORATORY POC Blood, Capillary BLOOD SPECIMEN / Unknown 10/28/2024 1:27 PM CDT 10/28/2024 1:33 PM CDT Arielle Martel DO LAB - BEAKER POCT Final Re sult LABORATORY [facility] [address] Lab (1st floor, no room number) [place] [address], [facility] * Glucose by meter (10/28/2024 8:26 AM CDT) GLUCOSE BY METER POCT 98 70 - 99 mg/dL 10/28/2024 8:33 AM CDT LABORATORY POC Blood, Capillary BLOOD SPECIMEN / Unknown 10/28/2024 8:26 AM CDT 10/28/2024 8:33 AM CDT us Arielle Martel DO LAB - BEAKER POCT Final Re sult LABORATORY POC [facility] [address] Lab (1st floor, no room number) [place] [address] * Potassium (10/28/2024 6:18 AM CDT) Potassium 4.5 3.4 - 5.3 mmol/L 10/28/2024 8:56 AM CDT LABORATORY Blood BLOOD SPECIMEN / Unknown Venipuncture / Unknown 10/28/2024 6:18 AM CDT 10/28/2024 6:22 AM CDT us Al Ian Sands MD LAB - BLOOD ORDERABLES Fi nal Result [facility] [address] Lab (1st floor, no room number) [place] [address] * Extra Purple Top EDTA (LAB USE ONLY) (10/28/2024 6:18 AM CDT) Hold Specimen JIC 10/28/2024 7:31 AM CDT LABORATORY Blood BLOOD SPECIMEN / Unknown Venipuncture / Unknown 10/28/2024 6:18 AM CDT 10/28/2024 6:22 AM CDT us Arielle Martel DO LAB - BLOOD ORDERABLES Fin al Result [facility] [address] Lab (1st floor, no room number) [address] * Magnesium (10/28/2024 6:18 AM CDT) Magnesium 1.9 1.7 - 2.3 mg/dL 10/28/2024 6:45 AM CDT RH LABORATORY Blood BLOOD SPECIMEN / Unknown Venipuncture / Unknown 10/28/2024 6:18 AM CDT 10/28/2024 6:22 AM CDT Wilber Torres MD LAB - BLOOD ORDERABLES Fi nal Result [facility] [address] [employer] Lab (1st floor, no room number) [address] * Phosphorus (10/28/2024 6:18 AM CDT) Phosphorus 3.8 2.5 - 4.5 mg/dL 10/28/2024 6:45 AM CDT LABORATORY Blood BLOOD SPECIMEN / Unknown Venipuncture / Unknown 10/28/2024 6:18 AM CDT 10/28/2024 6:22 AM CDT Wilber Torres MD LAB - BLOOD ORDERABLES Fi nal Result Performing Organization Address City/[facility]/ZIP Co de Phone Number [facility] [address] Lab (1st floor, no room number) [address] * (ABNORMAL) Glucose by meter (10/28/2024 2:05 AM CDT) GLUCOSE BY METER POCT 131(H) 70 - 99 mg/dL 10/28/2024 2:12 AM CDT LABORATORY POC Blood, Capillary BLOOD SPECIMEN / Unknown 10/28/2024 2:05 AM CDT 10/28/2024 2:12 AM CDT Arielle NG - BEAKER POCT Final Re sult LABORATORY [facility] [address] Lab (1st floor, no room number) [place] [phone] * (ABNORMAL) Glucose by meter (10/27/2024 9:59 PM CDT) GLUCOSE BY METER POCT 199(H) 70 - 99 mg/dL 10/27/2024 10:07 PM CDT RH LABORATORY POC Blood, Capillary BLOOD SPECIMEN / Unknown 10/27/2024 9:59 PM CDT 10/27/2024 10:07 PM CDT Arielle Martel DO LAB - BEAKER POCT Final Re sult LABORATORY [facility] [address] Lab (1st floor, no room number) [place] [phone] * (ABNORMAL) Glucose by meter (10/27/2024 7:07 PM CDT) GLUCOSE BY METER POCT 188(H) 70 - 99 mg/dL 10/27/2024 7:14 PM CDT LABORATORY POC Blood, Capillary BLOOD SPECIMEN / Unknown 10/27/2024 7:07 PM CDT 10/27/2024 7:14 PM CDT us Arielle Martel DO LAB - BEAKER POCT Final Re sult LABORATORY [facility] [address] Lab (1st floor, no room number) [place] [phone] * (ABNORMAL) Glucose by meter (10/27/2024 4:53 PM CDT) GLUCOSE BY METER POCT 191(H) 70 - 99 mg/dL 10/27/2024 5:00 PM CDT RH LABORATORY POC Blood, Capillary BLOOD SPECIMEN / Unknown 10/27/2024 4:53 PM CDT 10/27/2024 5:00 PM CDT Arielle Martel [employer] LAB - BEAKER POCT Final Re sult LABORATORY [facility] [address] Lab (1st floor, no room number) [place] [address] * (ABNORMAL) Glucose by meter (10/27/2024 2:50 PM CDT) [facility] GLUCOSE BY METER POCT 227(H) 70 - 99 mg/dL 10/27/2024 2:57 PM CDT LABORATORY POC Blood, Capillary BLOOD SPECIMEN / Unknown 10/27/2024 2:50 PM CDT 10/27/2024 2:57 PM CDT Arielle Soaresabhijeet LAB - BEAKER POCT Final Re sult Performing Organization Address [facility]/ZIP Co de Phone Number LABORATORY [facility] [address] Lab (1st floor, no room number) [place] [address] * CTA Head Neck with Contrast [...] EXAM: CTA HEAD NECK W CONTRAST LOCATION: [facility] DATE: 10/27/2024 INDICATION: Right frontal [...] artery stenoses. Mild multifocal likely atherosclerotic bilateral comparison shopper stenoses; patent P1-proximal P3 segment branches of the comparison shopper without high-grade stenosis. No aneurysm or high-flow [...] effusion with compressive atelectasis. A partially imaged [id number] left pleural effusion without evidence of loculation. Procedure Note Sergio Purvis MD - 10/27/2024 EXAM: CTA HEAD NECK W CONTRAST LOCATION: [facility] DATE: 10/27/2024 INDICATION: Right frontal [...] basilar artery stenoses. 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 Diffuse interlobular pulmonary septal thickening, greater on the left where thereare patchy groundglass airspace opacities, nonspecific although can becompatible with pulmonary edema in the appropriate clinical setting;pneumonia may contribute to a similar appearance and should be excluded clinically. A partially imaged loculatedright pleural effusion with compressive atelectasis. A partially [id number] left pleural effusion without evidence ofloculation. IMPRESSION: [...] or dissection. 3. Nonvascular findings, as described. Anel Long NP IMG CT ORDERABLES Final Result * ECHO COMPLETE (10/27/2024 1:04 PM CDT) [facility] LVEF 65-70% CARDIOLOGY RESULTS Anatomical Region Laterality Modality Echocardiography 10/27/2024 12:3 2 PM CDT Narrative 10/27/2024 2:55 PM CDT [id number]^JARETT^ANEL^[facility] [address] [place] [address] Name: ALENA RAE : 1960 Study Date: 10/27/2024 12:32 PM Age: 63 yrs Gender: Male Patient Location: [facility] Reason For Study: CVA Ordering Physician: ANEL LONG Performed By: Yoni Cintron RDCS BSA: 2.0 [...] Procedure Note Horacio Hernandez MD - 10/27/2024 [id number]^JARETT^ANEL^[facility] [address] [place] [address] Name: ALENA RAE : 1960 Study Date: 10/27/2024 12:32 PM Age: 63 yrs Gender: Male Patient Location: [facility] Reason For Study: CVA Ordering Physician: ANEL LONG Performed By: Yoni Cintron RDCS BSA: 2.0 [...] Horacio Hernandez MD on 10/27/2024 02:55 PM us Anel Long RFID ENGINEER CV ECHO ORDERABLES Edited Resu lt - Final * (ABNORMAL) Glucose by meter (10/27/2024 11:16 AM CDT) GLUCOSE BY METER POCT 228(H) 70 - 99 mg/dL 10/27/2024 11:22 AM CDT LABORATORY POC Blood, Capillary BLOOD SPECIMEN / Unknown 10/27/2024 11:16 AM CDT 10/27/2024 11:22 AM CDT us Arielle NG - BEAKER POCT Final Re sult LABORATORY [facility] [address] [facility] Lab (1st floor, no room number) [place] [address], [facility] * Glucose by meter (10/27/2024 9:07 AM CDT) GLUCOSE BY METER POCT 89 70 - 99 mg/dL 10/27/2024 9:14 AM CDT [facility] LABORATORY POC Blood, Capillary BLOOD SPECIMEN / Unknown 10/27/2024 9:07 AM CDT 10/27/2024 9:14 AM CDT us Arielle Martel DO LAB - BEAKER POCT Final Re sult [facility] LABORATORY POC [facility] [address] Lab (1st floor, no room number) [place] [address], [facility] * LDL cholesterol direct (10/27/2024 8:02 AM CDT) LDL Cholesterol Direct 64 <100 mg/dL 10/27/2024 2:59 PM CDT [facility] Comment: Age 2-19 years: Desirable: < 110 mg/dL Borderline High: 110-129 mg/dL High: >= 130 mg/dL Age 20 years and older: Desirable: < 100 mg/dL Above Desirable: 100-129 mg/dL Borderline High: 130-159 mg/dL High: 160-189 mg/dL Very High: >= 190 mg/dL Blood STRUCTURE OF RIGHT UPPER LIMB / Unknown Venipuncture / Unknown 10/27/2024 8:02 AM CDT 10/27/2024 8:20 AM CDT us Anel Long RFID ENGINEER LAB - BLOOD ORDERABLES Final R esult [facility] [facility] [address], [address] [place] [address], [facility] * Magnesium (10/27/2024 8:02 AM CDT) Magnesium 2.0 1.7 - 2.3 mg/dL 10/27/2024 8:40 AM CDT [facility] LABORATORY Blood STRUCTURE OF RIGHT UPPER LIMB / Unknown Venipuncture / Unknown 10/27/2024 8:02 AM CDT 10/27/2024 8:20 AM CDT Wilber Torres MD LAB - BLOOD ORDERABLES Fi nal Result [facility] [address] Lab (1st floor, no room number) [place] [address], [facility] * Phosphorus (10/27/2024 8:02 AM CDT) Phosphorus 4.0 2.5 - 4.5 mg/dL 10/27/2024 8:40 AM CDT LABORATORY Blood STRUCTURE OF RIGHT UPPER LIMB / Unknown Venipuncture / Unknown 10/27/2024 8:02 AM CDT 10/27/2024 8:20 AM CDT Wilber Torres MD LAB - BLOOD ORDERABLES Fi nal Result Performing Organization Address City/[facility]/ZIP Co de Phone Number [facility] [address] Lab (1st floor, no room number) [place] [address], [facility] * (ABNORMAL) Glucose by meter (10/27/2024 1:18 AM CDT) GLUCOSE BY METER POCT 165(H) 70 - 99 mg/dL 10/27/2024 1:25 AM CDT LABORATORY POC Blood, Capillary BLOOD SPECIMEN / Unknown 10/27/2024 1:18 AM CDT 10/27/2024 1:25 AM CDT Arielle Martel DO LAB - BEAKER POCT Final Re sult [facility] Lab [address] Lab (1st floor, no room number) [place] [address], [facility] * (ABNORMAL) Glucose by meter (10/26/2024 9:02 PM CDT) GLUCOSE BY METER POCT 239(H) 70 - 99 mg/dL 10/26/2024 9:08 PM CDT LABORATORY POC Blood, Capillary BLOOD SPECIMEN / Unknown 10/26/2024 9:02 PM CDT 10/26/2024 9:08 PM CDT Arielle Martel DO LAB - BEAKER POCT Final Re sult LABORATORY [facility] [address] Lab (1st floor, no room number) [place] [phone] * (ABNORMAL) Glucose by meter (10/26/2024 5:07 PM CDT) GLUCOSE BY METER POCT 242(H) 70 - 99 mg/dL 10/26/2024 5:13 PM CDT LABORATORY POC Blood, Capillary BLOOD SPECIMEN / Unknown 10/26/2024 5:07 PM CDT 10/26/2024 5:13 PM CDT Arielleemile Martel DO LAB - BEAKER POCT Final Re sult Performing Organization Address [facility]/ZIP Co de Phone Number LABORATORY [facility] [address] Lab (1st floor, no room number) [place] [phone], [facility] * (ABNORMAL) Glucose by meter (10/26/2024 12:31 PM CDT) GLUCOSE BY METER POCT 219(H) 70 - 99 mg/dL 10/26/2024 12:41 PM CDT LABORATORY POC Blood, Capillary BLOOD SPECIMEN / Unknown 10/26/2024 12:31 PM CDT 10/26/2024 12:41 PM CDT Arielle Delonte REYNOSO LAB - BEAKER POCT Final Re sult LABORATORY [facility] [address] Lab (1st floor, no room number) [place] [address] * (ABNORMAL) Glucose by meter (10/26/2024 8:54 AM CDT) GLUCOSE BY METER POCT 197(H) 70 - 99 mg/dL 10/26/2024 9:02 AM CDT [facility] LABORATORY POC Comment:Dr/RN Notified Blood, Capillary BLOOD SPECIMEN / Unknown 10/26/2024 8:54 AM CDT 10/26/2024 9:02 AM CDT us Arielle Martel DO LAB - BEAKER POCT Final Re sult Performing Organization Address City/[facility]/ZIP Co de Phone Number LABORATORY [facility] [address] [facility] Lab (1st floor, no room number) [place] [address] * (ABNORMAL) Hemoglobin A1c (10/26/2024 7:13 AM CDT) [facility] Estimated Average Glucose 169(H) <117 mg/dL 10/27/2024 12:10 PM CDT LABORATORY Hemoglobin A1C 7.5(H) <5.7 % 10/27/2024 12:10 PM CDT LABORATORY Comment: Normal <5.7% Prediabetes 5.7-6.4% Diabetes 6.5% or higher Note: Adopted from ADA consensus guidelines. Blood STRUCTURE OF RIGHT UPPER LIMB / Unknown Venipuncture / Unknown 10/26/2024 7:13 AM CDT 10/26/2024 8:45 AM CDT Anel Long RFID ENGINEER LAB - BLOOD ORDERABLES Final R esult LABORATORY [facility] Lab [address] [facility] Lab (1st floor, no room number) [place] [address], [facility] * Extra Purple Top Tube (10/26/2024 7:13 AM CDT) Hold Specimen JIC 10/26/2024 9:46 AM CDT RH LABORATORY Blood STRUCTURE OF RIGHT UPPER LIMB / Unknown Venipuncture / Unknown 10/26/2024 7:13 AM CDT 10/26/2024 8:45 AM CDT Arielle Martel DO LAB - BLOOD ORDERABLES Fin al Result [facility] [address] Lab (1st floor, no room number) [place] [phone] [place] [address] * Magnesium (10/26/2024 7:13 AM CDT) Magnesium 1.8 1.7 - 2.3 mg/dL 10/26/2024 7:37 AM CDT LABORATORY Blood STRUCTURE OF RIGHT UPPER LIMB / Unknown Venipuncture / Unknown 10/26/2024 7:13 AM CDT 10/26/2024 7:16 AM CDT Wilber Torres MD LAB - BLOOD ORDERABLES Fi nal Result [facility] [address] Lab (1st floor, no room number) [place] [phone] [place] [address] * Phosphorus (10/26/2024 7:13 AM CDT) Phosphorus 3.0 2.5 - 4.5 mg/dL 10/26/2024 7:37 AM CDT LABORATORY Blood STRUCTURE OF RIGHT UPPER LIMB / Unknown Venipuncture / Unknown 10/26/2024 7:13 AM CDT 10/26/2024 7:16 AM CDT Wilber Torres MD LAB - BLOOD ORDERABLES Fi nal Result [facility] [address] Lab (1st floor, no room number) [place] [phone], [facility] * (ABNORMAL) Glucose by meter (10/26/2024 1:48 AM DIRECTOR VIDEO) GLUCOSE BY METER POCT 167(H) 70 - 99 mg/dL 10/26/2024 1:55 AM DIRECTOR VIDEO RH LABORATORY POC Blood, Capillary BLOOD SPECIMEN / Unknown 10/26/2024 1:48 AM DIRECTOR VIDEO 10/26/2024 1:55 AM DIRECTOR VIDEO Arielle Martel DO LAB - BEAKER POCT Final Re sult LABORATORY [facility] [address] Lab (1st floor, no room number) [address] [place] [address] * (ABNORMAL) Glucose by meter (10/25/2024 9:30 PM DIRECTOR VIDEO) GLUCOSE BY METER POCT 164(H) 70 - 99 mg/dL 10/25/2024 9:37 PM DIRECTOR VIDEO LABORATORY POC Blood, Capillary BLOOD SPECIMEN / Unknown 10/25/2024 9:30 PM DIRECTOR VIDEO 10/25/2024 9:37 PM DIRECTOR VIDEO Arielle Martel DO LAB - BEAKER POCT Final Re sult Performing Organization Address [facility]/ZIP Co de Phone Number [facility] [address] Lab (1st floor, no room number) [place] [phone] [place] [address] * (ABNORMAL) Glucose by meter (10/25/2024 6:10 PM DIRECTOR VIDEO) GLUCOSE BY METER POCT 216(H) 70 - 99 mg/dL 10/25/2024 6:17 PM DIRECTOR VIDEO RH LABORATORY POC Blood, Capillary BLOOD SPECIMEN / Unknown 10/25/2024 6:10 PM DIRECTOR VIDEO 10/25/2024 6:17 PM DIRECTOR VIDEO Arielle Martel DO LAB - BEAKER POCT Final Re sult LABORATORY [facility] [address] Lab (1st floor, no room number) [place] [address] * (ABNORMAL) Glucose by meter (10/25/2024 12:41 PM DIRECTOR VIDEO) GLUCOSE BY METER POCT 116(H) 70 - 99 mg/dL 10/25/2024 12:48 PM DIRECTOR VIDEO LABORATORY POC Comment:/MENDEL Notified Blood, Capillary BLOOD SPECIMEN / Unknown 10/25/2024 12:41 PM DIRECTOR VIDEO 10/25/2024 12:48 PM DIRECTOR VIDEO us Arielle Martel DO LAB - BEAKER POCT Final Re sult LABORATORY [facility] [address] Lab (1st floor, no room number) [place] [address] * Glucose by meter (10/25/2024 8:19 AM DIRECTOR VIDEO) GLUCOSE BY METER POCT 93 70 - 99 mg/dL 10/25/2024 8:26 AM DIRECTOR VIDEO LABORATORY POC Comment:/MENDEL Notified Blood, Capillary BLOOD SPECIMEN / Unknown 10/25/2024 8:19 AM DIRECTOR VIDEO 10/25/2024 8:26 AM DIRECTOR VIDEO us Arielle Martel DO LAB - BEAKER POCT Final Re sult LABORATORY [facility] [address] Lab (1st floor, no room number) [place] [address], [facility] * Extra Purple Top Tube (10/25/2024 7:13 AM DIRECTOR VIDEO) Hold Specimen JIC 10/25/2024 9:46 AM DIRECTOR VIDEO LABORATORY Blood STRUCTURE OF RIGHT UPPER LIMB / Unknown Venipuncture / Unknown 10/25/2024 7:13 AM DIRECTOR VIDEO 10/25/2024 8:44 AM DIRECTOR VIDEO Arielle Martel DO LAB - BLOOD ORDERABLES Fin al Result [facility] [address] Lab (1st floor, no room number) [address] * Phosphorus (10/25/2024 7:13 AM DIRECTOR VIDEO) Phosphorus 3.2 2.5 - 4.5 mg/dL 10/25/2024 7:45 AM DIRECTOR VIDEO LABORATORY Blood STRUCTURE OF RIGHT UPPER LIMB / Unknown Venipuncture / Unknown 10/25/2024 7:13 AM DIRECTOR VIDEO 10/25/2024 7:24 AM DIRECTOR VIDEO Wilber Torres MD LAB - BLOOD ORDERABLES Fi nal Result Performing Organization Address [facility]/ZIP Co de Phone Number [facility] [address] Lab (1st floor, no room number) [address] * Magnesium (10/25/2024 7:13 AM DIRECTOR VIDEO) Magnesium 2.0 1.7 - 2.3 mg/dL 10/25/2024 7:45 AM DIRECTOR VIDEO LABORATORY Blood STRUCTURE OF RIGHT UPPER LIMB / Unknown Venipuncture / Unknown 10/25/2024 7:13 AM DIRECTOR VIDEO 10/25/2024 7:24 AM DIRECTOR VIDEO Wilber Torres MD LAB - BLOOD ORDERABLES Fi nal Result [facility] [address] Lab (1st floor, no room number) [address] * (ABNORMAL) Glucose by meter (10/25/2024 1:08 AM DIRECTOR VIDEO) GLUCOSE BY METER POCT 175(H) 70 - 99 mg/dL 10/25/2024 1:15 AM DIRECTOR VIDEO LABORATORY POC Blood, Capillary BLOOD SPECIMEN / Unknown 10/25/2024 1:08 AM DIRECTOR VIDEO 10/25/2024 1:15 AM DIRECTOR VIDEO Arielle Martel LAB - BEAKER POCT Final Re sult Performing Organization Address City/[facility]/ZIP Co de Phone Number LABORATORY [facility] [address] Lab (1st floor, no room number) [place] [address] * (ABNORMAL) Glucose by meter (10/24/2024 9:19 PM DIRECTOR VIDEO) GLUCOSE BY METER POCT 235(H) 70 - 99 mg/dL 10/24/2024 9:26 PM DIRECTOR VIDEO LABORATORY POC Blood, Capillary BLOOD SPECIMEN / Unknown 10/24/2024 9:19 PM DIRECTOR VIDEO 10/24/2024 9:26 PM DIRECTOR VIDEO Arielle Martel DO LAB - BEAKER POCT Final Re sult Performing Organization Address [facility]/ZIP Co de Phone Number LABORATORY [facility] [address] Lab (1st floor, no room number) [place] [address], [facility] * (ABNORMAL) Glucose by meter (10/24/2024 6:23 PM DIRECTOR VIDEO) GLUCOSE BY METER POCT 233(H) 70 - 99 mg/dL 10/24/2024 6:29 PM DIRECTOR VIDEO LABORATORY POC Blood, Capillary BLOOD SPECIMEN / Unknown 10/24/2024 6:23 PM DIRECTOR VIDEO 10/24/2024 6:29 PM DIRECTOR VIDEO Arielle Martel LAB - BEAKER POCT Final Re sult LABORATORY [facility] [address] Lab (1st floor, no room number) [place] [phone], [facility] * (ABNORMAL) CRP inflammation (10/24/2024 1:33 PM DIRECTOR VIDEO) CRP Inflammation 337.11(H) <5.00 mg/L 10/24/2024 2:09 PM DIRECTOR VIDEO LABORATORY Blood STRUCTURE OF RIGHT UPPER LIMB / Unknown Venipuncture / Unknown 10/24/2024 1:33 PM DIRECTOR VIDEO 10/24/2024 1:45 PM DIRECTOR VIDEO Nima Acosta MD LAB - BLOOD ORDERABLES Final Re sult [facility] [address] [employer] [address] Lab (1st floor, no room number) [place] [phone], [facility] * (ABNORMAL) Glucose by meter (10/24/2024 1:09 PM DIRECTOR VIDEO) GLUCOSE BY METER POCT 187(H) 70 - 99 mg/dL 10/24/2024 1:15 PM DIRECTOR VIDEO LABORATORY POC Blood, Capillary BLOOD SPECIMEN / Unknown 10/24/2024 1:09 PM DIRECTOR VIDEO 10/24/2024 1:15 PM DIRECTOR VIDEO Arielle Martel DO LAB - BEAKER POCT Final Re sult Performing Organization Address [facility]/ZIP Co de Phone Number [facility] [address] Lab (1st floor, no room number) [place] [phone], [facility] * (ABNORMAL) Glucose by meter (10/24/2024 9:41 AM DIRECTOR VIDEO) GLUCOSE BY METER POCT 241(H) 70 - 99 mg/dL 10/24/2024 9:47 AM DIRECTOR VIDEO LABORATORY POC Blood, Capillary BLOOD SPECIMEN / Unknown 10/24/2024 9:41 AM DIRECTOR VIDEO 10/24/2024 9:47 AM DIRECTOR VIDEO Arielle Martel DO LAB - BEAKER POCT Final Re sult LABORATORY [facility] [address] Lab (1st floor, no room number) [place] [phone] [place] [address] * (ABNORMAL) Glucose by meter (10/24/2024 8:15 AM DIRECTOR VIDEO) GLUCOSE BY METER POCT 205(H) 70 - 99 mg/dL 10/24/2024 8:23 AM DIRECTOR VIDEO LABORATORY POC Blood, Capillary BLOOD SPECIMEN / Unknown 10/24/2024 8:15 AM DIRECTOR VIDEO 10/24/2024 8:23 AM DIRECTOR VIDEO Arielle Martel DO LAB - BEAKER POCT Final Re sult LABORATORY [facility] [address] [facility] Lab (1st floor, no room number) [place] [phone] [place] [address] * Extra Purple Top EDTA (LAB USE ONLY) (10/24/2024 6:25 AM DIRECTOR VIDEO) Hold Specimen JIC 10/24/2024 8:05 AM DIRECTOR VIDEO LABORATORY Blood BLOOD SPECIMEN / Unknown Venipuncture / Unknown 10/24/2024 6:25 AM DIRECTOR VIDEO 10/24/2024 6:49 AM DIRECTOR VIDEO us Arielle Martel DO LAB - BLOOD ORDERABLES Fin al Result [facility] [address] [facility] Lab (1st floor, no room number) [place] [phone] * Magnesium (10/24/2024 6:25 AM DIRECTOR VIDEO) Magnesium 2.2 1.7 - 2.3 mg/dL 10/24/2024 7:11 AM DIRECTOR VIDEO LABORATORY Blood BLOOD SPECIMEN / Unknown Venipuncture / Unknown 10/24/2024 6:25 AM DIRECTOR VIDEO 10/24/2024 6:50 AM DIRECTOR VIDEO Arielle Martel DO LAB - BLOOD ORDERABLES Fin al Result Performing Organization Address [facility]/ZIP Co de Phone Number LABORATORY [facility] [address] Lab (1st floor, no room number) [address] * Phosphorus (10/24/2024 6:25 AM DIRECTOR VIDEO) Phosphorus 3.7 2.5 - 4.5 mg/dL 10/24/2024 7:11 AM DIRECTOR VIDEO LABORATORY Blood BLOOD SPECIMEN / Unknown Venipuncture / Unknown 10/24/2024 6:25 AM DIRECTOR VIDEO 10/24/2024 6:50 AM DIRECTOR VIDEO Arielle Martel DO LAB - BLOOD ORDERABLES Fin al Result Performing Organization Address [facility]/ZIP Co de Phone Number [facility] [address] Lab (1st floor, no room number) [address] * Glucose by meter (10/24/2024 6:10 AM DIRECTOR VIDEO) GLUCOSE BY METER POCT 76 70 - 99 mg/dL 10/24/2024 6:17 AM DIRECTOR VIDEO LABORATORY POC Blood, Capillary BLOOD SPECIMEN / Unknown 10/24/2024 6:10 AM DIRECTOR VIDEO 10/24/2024 6:17 AM DIRECTOR VIDEO us Arielle Martel DO LAB - BEAKER POCT Final Re sult Performing Organization Address [facility]/ZIP Co de Phone Number LABORATORY [facility] [address] Lab (1st floor, no room number) [address] * (ABNORMAL) Glucose by meter (10/24/2024 2:11 AM DIRECTOR VIDEO) GLUCOSE BY METER POCT 207(H) 70 - 99 mg/dL 10/24/2024 2:18 AM DIRECTOR VIDEO LABORATORY POC Blood, Capillary BLOOD SPECIMEN / Unknown 10/24/2024 2:11 AM DIRECTOR VIDEO 10/24/2024 2:18 AM DIRECTOR VIDEO Arielle Martel DO LAB - BEAKER POCT Final Re sult LABORATORY [facility] [address] Lab (1st floor, no room number) [place] [address], [facility] * (ABNORMAL) Glucose by meter (10/23/2024 9:28 PM DIRECTOR VIDEO) [facility] GLUCOSE BY METER POCT 229(H) 70 - 99 mg/dL 10/23/2024 9:35 PM DIRECTOR VIDEO LABORATORY POC Blood, Capillary BLOOD SPECIMEN / Unknown 10/23/2024 9:28 PM DIRECTOR VIDEO 10/23/2024 9:35 PM DIRECTOR VIDEO Arielle Martel DO LAB - BEAKER POCT Final Re sult LABORATORY [facility] [address] Lab (1st floor, no room number) [place] [address], [facility] * CT Chest w/o Contrast (10/23/2024 8:29 PM DIRECTOR VIDEO) Anatomical Region Laterality Modality Chest, SUBRAD CT BODY, UMP CT CHEST, RAD CT Computed Tomography 10/23/2024 8:29 PM DIRECTOR VIDEO Impressions 10/23/2024 9:52 PM DIRECTOR VIDEO IMPRESSION: 1. Decreased right pleural effusion with [...] MRI from 10/14/2024. Narrative 10/23/2024 9:52 PM DIRECTOR VIDEO EXAM: CT CHEST W/O CONTRAST LOCATION: [facility] DATE: 10/23/2024 INDICATION: follow up [...] MEDIASTINUM/AXILLAE: Right hilar adenopathy appears unchanged. A manufacturers service representative lymph node measures 1.4 cm. No [...] 10/23/2024 EXAM: CT CHEST W/O CONTRAST LOCATION: [facility] DATE: 10/23/2024 INDICATION: follow up [...] on the previous abdominal MRI from 10/14/2024. Wilber Torres MD IMG CT ORDERABLES Final R esult * (ABNORMAL) Glucose by meter (10/23/2024 5:14 PM DIRECTOR VIDEO) Pathologist [facility] GLUCOSE BY METER POCT 236(H) 70 - 99 mg/dL 10/23/2024 5:21 PM DIRECTOR VIDEO LABORATORY POC Blood, Capillary BLOOD SPECIMEN / Unknown 10/23/2024 5:14 PM DIRECTOR VIDEO 10/23/2024 5:21 PM DIRECTOR VIDEO Arielle VALDEZ POCT Final Re sult LABORATORY [facility] [address] Lab (1st floor, no room number) [place] [address], [facility] * CT Head w/o Contrast (10/23/2024 1:38 PM DIRECTOR VIDEO) Anatomical Region Laterality Modality Head, SUBRAD CT NEURO, SUBRA D CT NEURO, UMP CT NEURO, RAD CT Computed Tomography 10/23/2024 1:38 PM DIRECTOR VIDEO Impressions 10/23/2024 1:44 PM DIRECTOR VIDEO IMPRESSION: 1. No acute intracranial abnormality. Narrative 10/23/2024 1:44 PM DIRECTOR VIDEO EXAM: CT HEAD W/O CONTRAST LOCATION: [facility] DATE: 10/23/2024 INDICATION: Confusion, AMS [...] 10/23/2024 EXAM: CT HEAD W/O CONTRAST LOCATION: [facility] DATE: 10/23/2024 INDICATION: Confusion, AMS [...] abnormality. IMPRESSION: 1. No acute intracranial abnormality. Wilber Torres MD IMG CT ORDERABLES Final R esult * (ABNORMAL) Blood gas venous (10/23/2024 1:04 PM DIRECTOR VIDEO) pH Venous 7.48(H) 7.32 - 7.43 10/23/2024 1:14 PM DIRECTOR VIDEO [facility] LABORATORY pCO2 Venous 46 40 - 50 mm Hg 10/23/2024 1:14 PM DIRECTOR VIDEO [facility] LABORATORY pO2 Venous 79(H) 25 - 47 mm Hg 10/23/2024 1:14 PM DIRECTOR VIDEO [facility] LABORATORY Bicarbonate Venous 34(H) 21 - 28 mmol/L 10/23/2024 1:14 PM DIRECTOR VIDEO RH LABORATORY Base Excess/Deficit Venous 9.1(H) -3.0 - 3.0 mmol/L 10/23/2024 1:14 PM DIRECTOR VIDEO [facility] LABORATORY FIO2 3 YARIEL 10/23/2024 1:14 PM DIRECTOR VIDEO [facility] LABORATORY Oxyhemoglobin Venous 96(H) 70 - 75 % 10/23/2024 1:14 PM DIRECTOR VIDEO [facility] LABORATORY O2 Sat, Venous 97.5(H) 70.0 - 75.0 % 10/23/2024 1:14 PM DIRECTOR VIDEO [facility] LABORATORY Blood, venous STRUCTURE OF LEFT UPPER LIMB / Unknown Venipuncture / Unknown 10/23/2024 1:04 PM DIRECTOR VIDEO 10/23/2024 1:09 PM DIRECTOR VIDEO Narrative [facility] LABORATORY - 10/23/2024 1:14 PM DIRECTOR VIDEO In healthy individuals, oxyhemoglobin (O2Hb) and oxygen saturation (SO2) are approximately equal. In the presence of dyshemoglobins, oxyhemoglobin can be considerably lower than oxygen saturation. us Wilber Torres MD LAB - BLOOD ORDERABLES Fi nal Result LABORATORY [facility] [address] [facility] Lab (1st floor, no room number) [place] [address], [facility] * (ABNORMAL) Basic metabolic panel (10/23/2024 1:04 PM DIRECTOR VIDEO) Sodium 129(L) 135 - 145 mmol/L 10/23/2024 1:41 PM DIRECTOR VIDEO LABORATORY Potassium 4.6 3.4 - 5.3 mmol/L 10/23/2024 1:41 PM DIRECTOR VIDEO RH LABORATORY Chloride 94(L) 98 - 107 mmol/L 10/23/2024 1:41 PM DIRECTOR VIDEO LABORATORY Carbon Dioxide (CO2) 29 22 - 29 mmol/L 10/23/2024 1:41 PM DIRECTOR VIDEO LABORATORY Anion Gap 6(L) 7 - 15 mmol/L 10/23/2024 1:41 PM DIRECTOR VIDEO LABORATORY Urea Nitrogen 19.4 8.0 - 23.0 mg/dL 10/23/2024 1:41 PM DIRECTOR VIDEO LABORATORY Creatinine 0.75 0.67 - 1.17 mg/dL 10/23/2024 1:41 PM DIRECTOR VIDEO [facility] LABORATORY GFR Estimate >90 >60 mL/min/1.7 3m2 10/23/2024 1:41 PM DIRECTOR VIDEO LABORATORY Comment:eGFR calculated us2020 CKD-EPI equation. Calcium 7.9(L) 8.8 - 10.4 mg/dL 10/23/2024 1:41 PM DIRECTOR VIDEO LABORATORY Glucose 150(H) 70 - 99 mg/dL 10/23/2024 1:41 PM [facility] LABORATORY Blood STRUCTURE OF RIGHT HAND / Unknown Venipuncture / Unknown 10/23/2024 1:04 PM DIRECTOR VIDEO 10/23/2024 1:09 PM DIRECTOR VIDEO Wilber Torres MD LAB - BLOOD ORDERABLES Fi nal Result LABORATORY [facility] [address] [facility] Lab (1st floor, no room number) [place] [address] * (ABNORMAL) CBC with platelets (10/23/2024 1:04 PM DIRECTOR VIDEO) WBC Count 10.8 4.0 - 11.0 10e3/uL 10/23/2024 1:14 PM DIRECTOR VIDEO LABORATORY RBC Count 4.14(L) 4.40 - 5.90 10e6/uL 10/23/2024 1:14 PM DIRECTOR VIDEO LABORATORY Hemoglobin 12.6(L) 13.3 - 17.7 g/dL 10/23/2024 1:14 PM DIRECTOR VIDEO LABORATORY Hematocrit 36.8(L) 40.0 - 53.0 % 10/23/2024 1:14 PM DIRECTOR VIDEO LABORATORY MCV 89 78 - 100 fL 10/23/2024 1:14 PM DIRECTOR VIDEO LABORATORY MCH 30.4 26.5 - 33.0 pg 10/23/2024 1:14 PM DIRECTOR VIDEO LABORATORY MCHC 34.2 31.5 - 36.5 g/dL 10/23/2024 1:14 PM DIRECTOR VIDEO LABORATORY RDW 12.3 10.0 - 15.0 % 10/23/2024 1:14 PM DIRECTOR VIDEO LABORATORY Platelet Count 306 150 - 450 10e3/uL 10/23/2024 1:14 PM DIRECTOR VIDEO LABORATORY Blood STRUCTURE OF RIGHT HAND / Unknown Venipuncture / Unknown 10/23/2024 1:04 PM DIRECTOR VIDEO 10/23/2024 1:09 PM DIRECTOR VIDEO us Wilber Torres MD LAB - BLOOD ORDERABLES Fi nal Result LABORATORY [facility] [address] [employer] Lab (1st floor, no room number) [place] [phone] * (ABNORMAL) Glucose by meter (10/23/2024 12:26 PM DIRECTOR VIDEO) [facility] GLUCOSE BY METER POCT 156(H) 70 - 99 mg/dL 10/23/2024 12:33 PM DIRECTOR VIDEO LABORATORY POC Blood, Capillary BLOOD SPECIMEN / Unknown 10/23/2024 12:26 PM DIRECTOR VIDEO 10/23/2024 12:33 PM DIRECTOR VIDEO Arielle Martel DO LAB - BEAKER POCT Final Re sult LABORATORY POC [facility] [address] [employer] Lab (1st floor, no room number) [place] [phone] * XR Chest Port 1 View (10/23/2024 8:59 AM DIRECTOR VIDEO) Anatomical Region Laterality Modality Chest Digital Radiogra phy 10/23/2024 8:59 AM DIRECTOR VIDEO Impressions 10/23/2024 9:03 AM DIRECTOR VIDEO IMPRESSION: Right-sided thoracostomy tube is again seen [...] acute bony abnormality. Narrative 10/23/2024 9:03 AM DIRECTOR VIDEO EXAM: XR CHEST PORT 1 VIEW LOCATION: [facility] DATE: 10/23/2024 INDICATION: pleural effusion, chest tube COMPARISON: 10/22/2024 Procedure Note Huma Helm MD - 10/23/2024 EXAM: XR CHEST PORT 1 VIEW LOCATION: [facility] DATE: 10/23/2024 INDICATION: pleural effusion, [...] No acute bony abnormality. Wilber Torres MD IMG DIAGNOSTIC IMAGING OR DERABLES Final Result * (ABNORMAL) Glucose by meter (10/23/2024 8:44 AM DIRECTOR VIDEO) [facility] GLUCOSE BY METER POCT 111(H) 70 - 99 mg/dL 10/23/2024 8:51 AM DIRECTOR VIDEO LABORATORY POC Blood, Capillary BLOOD SPECIMEN / Unknown 10/23/2024 8:44 AM DIRECTOR VIDEO 10/23/2024 8:51 AM DIRECTOR VIDEO Arielle NG - CARLOS ALBERTOAKER POCT Final Re sult [facility] LABORATORY [facility] [address] Lab (1st floor, no room number) [place] [phone] [place] [address] * Extra Purple Top EDTA (LAB USE ONLY) (10/23/2024 6:41 AM DIRECTOR VIDEO) Hold Specimen JIC 10/23/2024 8:16 AM DIRECTOR VIDEO [facility] LABORATORY Blood BLOOD SPECIMEN / Unknown Venipuncture / Unknown 10/23/2024 6:41 AM DIRECTOR VIDEO 10/23/2024 7:09 AM DIRECTOR VIDEO us Arielle Martel DO LAB - BLOOD ORDERABLES Fin al Result [facility] [address] Lab (1st floor, no room number) [id number] [place] [address] * Phosphorus (10/23/2024 6:41 AM DIRECTOR VIDEO) Phosphorus 3.4 2.5 - 4.5 mg/dL 10/23/2024 7:45 AM DIRECTOR VIDEO LABORATORY Blood BLOOD SPECIMEN / Unknown Venipuncture / Unknown 10/23/2024 6:41 AM DIRECTOR VIDEO 10/23/2024 7:09 AM DIRECTOR VIDEO Wilber Torres MD LAB - BLOOD ORDERABLES Fi nal Result [facility] [address] Lab (1st floor, no room number) [place] [id number] [place] [address] * Magnesium (10/23/2024 6:41 AM DIRECTOR VIDEO) Magnesium 2.0 1.7 - 2.3 mg/dL 10/23/2024 7:45 AM DIRECTOR VIDEO [facility] LABORATORY Blood BLOOD SPECIMEN / Unknown Venipuncture / Unknown 10/23/2024 6:41 AM DIRECTOR VIDEO 10/23/2024 7:09 AM DIRECTOR VIDEO Wilber Torres MD LAB - BLOOD ORDERABLES Fi nal Result [facility] [address] Lab (1st floor, no room number) [place] [phone] * (ABNORMAL) Glucose by meter (10/23/2024 2:08 AM DIRECTOR VIDEO) GLUCOSE BY METER POCT 204(H) 70 - 99 mg/dL 10/23/2024 2:14 AM DIRECTOR VIDEO LABORATORY POC Blood, Capillary BLOOD SPECIMEN / Unknown 10/23/2024 2:08 AM DIRECTOR VIDEO 10/23/2024 2:14 AM DIRECTOR VIDEO Arielle RodgerQingCloud LAB - BEAKER POCT Final Re sult LABORATORY [facility] Lab [address] Lab (1st floor, no room number) [place] [phone] * (ABNORMAL) Glucose by meter (10/22/2024 9:32 PM DIRECTOR VIDEO) GLUCOSE BY METER POCT 310(H) 70 - 99 mg/dL 10/22/2024 9:40 PM DIRECTOR VIDEO LABORATORY POC Comment:Dr/RN Notified Blood, Capillary BLOOD SPECIMEN / Unknown 10/22/2024 9:32 PM DIRECTOR VIDEO 10/22/2024 9:40 PM DIRECTOR VIDEO Arielle Daltonramez LAB - BEAKER POCT Final Re sult LABORATORY [facility] Lab [address] Lab (1st floor, no room number) [place] [phone] * (ABNORMAL) Glucose by meter (10/22/2024 4:45 PM DIRECTOR VIDEO) GLUCOSE BY METER POCT 199(H) 70 - 99 mg/dL 10/22/2024 4:51 PM DIRECTOR VIDEO LABORATORY POC Blood, Capillary BLOOD SPECIMEN / Unknown 10/22/2024 4:45 PM DIRECTOR VIDEO 10/22/2024 4:51 PM DIRECTOR VIDEO Arielle Martel DO LAB - BEAKER POCT Final Re sult Performing Organization Address City/[facility]/ZIP Co de Phone Number LABORATORY [facility] [address] Lab (1st floor, no room number) [place] [address], [facility] * Procalcitonin (10/22/2024 12:14 PM DIRECTOR VIDEO) Procalcitonin 0.33 <0.50 ng/mL 10/22/2024 1:06 PM DIRECTOR VIDEO LABORATORY Comment: Interpretation and Recommendations <0.5 ng/mL: Systemic bacterial infection unlikely. Local bacterial infection is possible. 0.5-1.99 ng/mL: Systemic bacterial infection possible, but various other conditions are known to induce PCT as well. >=2.00 ng/mL: Systemic bacterial infection likely, unless other causes are known. Decision to start antibiotics should not be based on procalcitonin level alone. See Procalcitonin Guidance document for more details. [email or web address] Factors that may affect PCT levels (not [...] Unknown Venipuncture / Unknown 10/22/2024 12:14 PM DIRECTOR VIDEO 10/22/2024 12:31 PM DIRECTOR VIDEO us Nima Acosta MD LAB - BLOOD ORDERABLES Final Re sult Performing Organization Address City/[facility]/ZIP Co de Phone Number [facility] [address] Lab (1st floor, no room number) [place] [address] * (ABNORMAL) CRP inflammation (10/22/2024 12:14 PM DIRECTOR VIDEO) CRP Inflammation 169.37(H) <5.00 mg/L 10/22/2024 1:00 PM DIRECTOR VIDEO LABORATORY Blood STRUCTURE OF RIGHT HAND / Unknown Venipuncture / Unknown 10/22/2024 12:14 PM DIRECTOR VIDEO 10/22/2024 12:31 PM DIRECTOR VIDEO us Nima Acosta MD LAB - BLOOD ORDERABLES Final Re sult LABORATORY [facility] Lab [address] [facility] Lab (1st floor, no room number) [place] [address] * (ABNORMAL) Glucose by meter (10/22/2024 12:00 PM DIRECTOR VIDEO) GLUCOSE BY METER POCT 167(H) 70 - 99 mg/dL 10/22/2024 12:06 PM DIRECTOR VIDEO LABORATORY POC Blood, Capillary BLOOD SPECIMEN / Unknown 10/22/2024 12:00 PM DIRECTOR VIDEO 10/22/2024 12:06 PM DIRECTOR VIDEO us Arielle Martel DO LAB - BEAKER POCT Final Re sult LABORATORY POC [facility] Lab [address] [facility] Lab (1st floor, no room number) [place] [address], [facility] * XR Chest Port 1 View (10/22/2024 9:27 AM DIRECTOR VIDEO) Anatomical Region Laterality Modality Chest Digital Radiogra phy 10/22/2024 9:27 AM DIRECTOR VIDEO Impressions 10/22/2024 9:40 AM DIRECTOR VIDEO IMPRESSION: A right-sided thoracostomy tube is present with the tip along the lateral aspect of the right midlung. There has been interval improvement in aeration of the right lung as well as decrease in right-sided pleural effusion. Bibasilar opacities persists with continued blunting of the costophrenic angles, right greater than left, suggestive of small volume pleural effusions and adjacent atelectasis versus pneumonia. No sign of pneumothorax. Heart size is unchanged. Pulmonary vasculature is normal-appearing. Status post median sternotomy and cardiac valve repair. No acute osseous abnormality. Narrative 10/22/2024 9:40 AM DIRECTOR VIDEO EXAM: XR CHEST PORT 1 VIEW LOCATION: [facility] DATE: 10/22/2024 INDICATION: Pleural effusion, chest tube. COMPARISON: 10/19/2024, 10/15/2024. Procedure Note Rolf Uriostegui, DO - 10/22/2024 EXAM: XR CHEST PORT 1 VIEW LOCATION: [facility] DATE: 10/22/2024 INDICATION: Pleural effusion, chest tube. COMPARISON: 10/19/2024, 10/15/2024. IMPRESSION: A right-sided thoracostomy tube is present with the tip alongthe lateral aspect of the right midlung. There has been intervalimprovement in aeration of the right lung as well as decrease inright-sided pleural effusion. Bibasilar opacities persists with continued blunting of the costophrenic angles, right greaterthan left, suggestive of small volume pleural effusions and adjacentatelectasis versus pneumonia. No sign of pneumothorax. Heart size isunchanged. Pulmonary vasculature is normal-appearing. Status post median sternotomy and cardiac valve repair.No acute osseous abnormality. Wilber Torres MD IMG DIAGNOSTIC IMAGING OR DERABLES Final Result * Glucose by meter (10/22/2024 8:07 AM DIRECTOR VIDEO) Pathologist [facility] GLUCOSE BY METER POCT 86 70 - 99 mg/dL 10/22/2024 8:15 AM DIRECTOR VIDEO LABORATORY POC Blood, Capillary BLOOD SPECIMEN / Unknown 10/22/2024 8:07 AM DIRECTOR VIDEO 10/22/2024 8:15 AM DIRECTOR VIDEO Arielle NG - CARLOS ALBERTOAKER POCT Final Re sult LABORATORY POC [facility] [address] Lab (1st floor, no room number) [place] [address] * (ABNORMAL) CBC with platelets (10/22/2024 7:03 AM DIRECTOR VIDEO) WBC Count 9.1 4.0 - 11.0 10e3/uL 10/22/2024 7:25 AM DIRECTOR VIDEO RH LABORATORY RBC Count 4.14(L) 4.40 - 5.90 10e6/uL 10/22/2024 7:25 AM DIRECTOR VIDEO RH LABORATORY Hemoglobin 12.0(L) 13.3 - 17.7 g/dL 10/22/2024 7:25 AM DIRECTOR VIDEO RH LABORATORY Hematocrit 36.7(L) 40.0 - 53.0 % 10/22/2024 7:25 AM DIRECTOR VIDEO RH LABORATORY MCV 89 78 - 100 fL 10/22/2024 7:25 AM DIRECTOR VIDEO RH LABORATORY MCH 29.0 26.5 - 33.0 pg 10/22/2024 7:25 AM DIRECTOR VIDEO RH LABORATORY MCHC 32.7 31.5 - 36.5 g/dL 10/22/2024 7:25 AM DIRECTOR VIDEO RH LABORATORY RDW 12.2 10.0 - 15.0 % 10/22/2024 7:25 AM DIRECTOR VIDEO RH LABORATORY Platelet Count 325 150 - 450 10e3/uL 10/22/2024 7:25 AM DIRECTOR VIDEO LABORATORY Blood BLOOD SPECIMEN / Unknown Venipuncture / Unknown 10/22/2024 7:03 AM DIRECTOR VIDEO 10/22/2024 7:13 AM DIRECTOR VIDEO us Wilber Torres MD LAB - BLOOD ORDERABLES Fi nal Result [facility] LABORATORY [facility] [address] Lab (1st floor, no room number) [place] [address] * (ABNORMAL) Basic metabolic panel (10/22/2024 7:03 AM DIRECTOR VIDEO) Sodium 130(L) 135 - 145 mmol/L 10/22/2024 8:05 AM DIRECTOR VIDEO LABORATORY Potassium 4.3 3.4 - 5.3 mmol/L 10/22/2024 8:05 AM [facility] LABORATORY Chloride 92(L) 98 - 107 mmol/L 10/22/2024 8:05 AM [facility] LABORATORY Carbon Dioxide (CO2) 30(H) 22 - 29 mmol/L 10/22/2024 8:05 AM [facility] LABORATORY Anion Gap 8 7 - 15 mmol/L 10/22/2024 8:05 AM [facility] LABORATORY Urea Nitrogen 14.7 8.0 - 23.0 mg/dL 10/22/2024 8:05 AM [facility] LABORATORY Creatinine 0.67 0.67 - 1.17 mg/dL 10/22/2024 8:05 AM [facility] LABORATORY GFR Estimate >90 >60 mL/min/1.7 3m2 10/22/2024 8:05 AM [facility] LABORATORY Comment:eGFR calculated usin 2020 CKD-EPI equation. Calcium 8.1(L) 8.8 - 10.4 mg/dL 10/22/2024 8:05 AM [facility] LABORATORY Glucose 95 70 - 99 mg/dL 10/22/2024 8:05 AM [facility] LABORATORY Blood BLOOD SPECIMEN / Unknown Venipuncture / Unknown 10/22/2024 7:03 AM DIRECTOR VIDEO 10/22/2024 7:13 AM DIRECTOR VIDEO Wilber Torres MD LAB - BLOOD ORDERABLES Fi nal Result [facility] [address] [facility] Lab (1st floor, no room number) [place] [address] * Phosphorus (10/22/2024 7:03 AM DIRECTOR VIDEO) Pathologist [facility] Phosphorus 3.2 2.5 - 4.5 mg/dL 10/22/2024 7:47 AM DIRECTOR VIDEO LABORATORY Blood BLOOD SPECIMEN / Unknown Venipuncture / Unknown 10/22/2024 7:03 AM DIRECTOR VIDEO 10/22/2024 7:13 AM DIRECTOR VIDEO Wilber Torres MD LAB - BLOOD ORDERABLES Fi nal Result [facility] [address] Lab (1st floor, no room number) [place] [phone] [place] [address] * Magnesium (10/22/2024 7:03 AM DIRECTOR VIDEO) Magnesium 2.1 1.7 - 2.3 mg/dL 10/22/2024 7:47 AM DIRECTOR VIDEO RH LABORATORY Blood BLOOD SPECIMEN / Unknown Venipuncture / Unknown 10/22/2024 7:03 AM DIRECTOR VIDEO 10/22/2024 7:13 AM DIRECTOR VIDEO Wilber Torres MD LAB - BLOOD ORDERABLES Fi nal Result LABORATORY [facility] [address] [facility] Lab (1st floor, no room number) [address] [place] [address] * (ABNORMAL) Glucose by meter (10/22/2024 2:35 AM DIRECTOR VIDEO) GLUCOSE BY METER POCT 118(H) 70 - 99 mg/dL 10/22/2024 2:42 AM DIRECTOR VIDEO LABORATORY POC Blood, Capillary BLOOD SPECIMEN / Unknown 10/22/2024 2:35 AM DIRECTOR VIDEO 10/22/2024 2:42 AM DIRECTOR VIDEO us Arielle Martel DO LAB - BEAKER POCT Final Re sult LABORATORY POC [facility] [address] Lab (1st floor, no room number) [address] [place] [address] * (ABNORMAL) Glucose by meter (10/21/2024 9:58 PM DIRECTOR VIDEO) GLUCOSE BY METER POCT 239(H) 70 - 99 mg/dL 10/21/2024 10:05 PM DIRECTOR VIDEO LABORATORY POC Blood, Capillary BLOOD SPECIMEN / Unknown 10/21/2024 9:58 PM DIRECTOR VIDEO 10/21/2024 10:05 PM DIRECTOR VIDEO Arielle Martel DO LAB - BEAKER POCT Final Re sult LABORATORY [facility] [address] [employer] Lab (1st floor, no room number) [address] * (ABNORMAL) Glucose by meter (10/21/2024 5:26 PM DIRECTOR VIDEO) GLUCOSE BY METER POCT 337(H) 70 - 99 mg/dL 10/21/2024 5:33 PM DIRECTOR VIDEO RH LABORATORY POC Blood, Capillary BLOOD SPECIMEN / Unknown 10/21/2024 5:26 PM DIRECTOR VIDEO 10/21/2024 5:33 PM DIRECTOR VIDEO Arielle Martel DO LAB - BEAKER POCT Final Re sult Performing Organization Address [facility]/ZIP Co de Phone Number LABORATORY [facility] Lab [address] Lab (1st floor, no room number) [address] * (ABNORMAL) Glucose by meter (10/21/2024 1:24 PM DIRECTOR VIDEO) GLUCOSE BY METER POCT 251(H) 70 - 99 mg/dL 10/21/2024 1:30 PM DIRECTOR VIDEO LABORATORY POC Blood, Capillary BLOOD SPECIMEN / Unknown 10/21/2024 1:24 PM DIRECTOR VIDEO 10/21/2024 1:30 PM DIRECTOR VIDEO Arielle Martel DO LAB - BEAKER POCT Final Re sult LABORATORY [facility] [address] Lab (1st floor, no room number) [address] * Glucose by meter (10/21/2024 9:06 AM DIRECTOR VIDEO) GLUCOSE BY METER POCT 93 70 - 99 mg/dL 10/21/2024 9:13 AM DIRECTOR VIDEO LABORATORY POC Blood, Capillary BLOOD SPECIMEN / Unknown 10/21/2024 9:06 AM DIRECTOR VIDEO 10/21/2024 9:13 AM DIRECTOR VIDEO us Arielle Martel DO LAB - BEAKER POCT Final Re sult LABORATORY [facility] [address] Lab (1st floor, no room number) [place] [address], [facility] * Phosphorus (10/21/2024 6:05 AM DIRECTOR VIDEO) Phosphorus 3.8 2.5 - 4.5 mg/dL 10/21/2024 7:08 AM DIRECTOR VIDEO LABORATORY Blood STRUCTURE OF RIGHT UPPER LIMB / Unknown Venipuncture / Unknown 10/21/2024 6:05 AM DIRECTOR VIDEO 10/21/2024 6:42 AM DIRECTOR VIDEO us Kayla Baca MD LAB - BLOOD ORDERABLES Final Res ult Performing Organization Address City/[facility]/ZIP Co de Phone Number [facility] [address] Lab (1st floor, no room number) [place] [address], [facility] * Magnesium (10/21/2024 6:05 AM DIRECTOR VIDEO) Magnesium 2.2 1.7 - 2.3 mg/dL 10/21/2024 7:08 AM DIRECTOR VIDEO LABORATORY Blood STRUCTURE OF RIGHT UPPER LIMB / Unknown Venipuncture / Unknown 10/21/2024 6:05 AM DIRECTOR VIDEO 10/21/2024 6:42 AM DIRECTOR VIDEO us Chris Suarez MD LAB - BLOOD ORDER MIRNA Final Result [facility] [address] Lab (1st floor, no room number) [place] [address], [facility] * Glucose by meter (10/21/2024 3:40 AM DIRECTOR VIDEO) GLUCOSE BY METER POCT 83 70 - 99 mg/dL 10/21/2024 3:47 AM DIRECTOR VIDEO RH LABORATORY POC Blood, Capillary BLOOD SPECIMEN / Unknown 10/21/2024 3:40 AM DIRECTOR VIDEO 10/21/2024 3:47 AM DIRECTOR VIDEO Arielle Martel DO LAB - BEAKER POCT Final Re sult LABORATORY [facility] [address] Lab (1st floor, no room number) [place] [phone], [facility] * (ABNORMAL) Glucose by meter (10/21/2024 1:55 AM DIRECTOR VIDEO) GLUCOSE BY METER POCT 108(H) 70 - 99 mg/dL 10/21/2024 2:01 AM DIRECTOR VIDEO LABORATORY POC Blood, Capillary BLOOD SPECIMEN / Unknown 10/21/2024 1:55 AM DIRECTOR VIDEO 10/21/2024 2:01 AM DIRECTOR VIDEO Arielleemile Martel DO LAB - BEAKER POCT Final Re sult Performing Organization Address City/[facility]/ZIP Co de Phone Number LABORATORY [facility] [address] Lab (1st floor, no room number) [place] [phone], [facility] * (ABNORMAL) Glucose by meter (10/20/2024 9:14 PM DIRECTOR VIDEO) GLUCOSE BY METER POCT 237(H) 70 - 99 mg/dL 10/20/2024 9:21 PM DIRECTOR VIDEO LABORATORY POC Blood, Capillary BLOOD SPECIMEN / Unknown 10/20/2024 9:14 PM DIRECTOR VIDEO 10/20/2024 9:21 PM DIRECTOR VIDEO Arielle Martel DO LAB - BEAKER POCT Final Re sult LABORATORY [facility] [address] Lab (1st floor, no room number) [place] [phone] * (ABNORMAL) Glucose by meter (10/20/2024 5:26 PM DIRECTOR VIDEO) GLUCOSE BY METER POCT 258(H) 70 - 99 mg/dL 10/20/2024 5:33 PM DIRECTOR VIDEO LABORATORY POC Blood, Capillary BLOOD SPECIMEN / Unknown 10/20/2024 5:26 PM DIRECTOR VIDEO 10/20/2024 5:33 PM DIRECTOR VIDEO Arielle Martel DO LAB - BEAKER POCT Final Re sult [facility] Lab [address] Lab (1st floor, no room number) [place] [address] * Extra Purple Top Tube (10/20/2024 7:15 AM DIRECTOR VIDEO) Hold Specimen JIC 10/20/2024 10:31 AM DIRECTOR VIDEO LABORATORY Blood STRUCTURE OF RIGHT UPPER LIMB / Unknown Venipuncture / Unknown 10/20/2024 7:15 AM DIRECTOR VIDEO 10/20/2024 9:24 AM DIRECTOR VIDEO Arielle Martel DO LAB - BLOOD ORDERABLES Fin al Result [facility] [address] Lab (1st floor, no room number) [place] [address], [facility] * Magnesium (10/20/2024 7:15 AM DIRECTOR VIDEO) Magnesium 2.0 1.7 - 2.3 mg/dL 10/20/2024 7:58 AM DIRECTOR VIDEO LABORATORY Blood STRUCTURE OF RIGHT UPPER LIMB / Unknown Venipuncture / Unknown 10/20/2024 7:15 AM DIRECTOR VIDEO 10/20/2024 7:30 AM DIRECTOR VIDEO us Chris Suarez MD LAB - BLOOD ORDER MIRNA Final Result [facility] [address] Lab (1st floor, no room number) [place] [address] * Phosphorus (10/20/2024 7:15 AM DIRECTOR VIDEO) Phosphorus 3.6 2.5 - 4.5 mg/dL 10/20/2024 7:58 AM DIRECTOR VIDEO LABORATORY Blood STRUCTURE OF RIGHT UPPER LIMB / Unknown Venipuncture / Unknown 10/20/2024 7:15 AM DIRECTOR VIDEO 10/20/2024 7:30 AM DIRECTOR VIDEO us Chris Suarez MD LAB - BLOOD ORDER MIRNA Final Result [facility] [address] Lab (1st floor, no room number) [place] [address] * (ABNORMAL) Glucose by meter (10/20/2024 6:00 AM DIRECTOR VIDEO) GLUCOSE BY METER POCT 139(H) 70 - 99 mg/dL 10/20/2024 6:10 AM DIRECTOR VIDEO LABORATORY POC Blood, Capillary BLOOD SPECIMEN / Unknown 10/20/2024 6:00 AM DIRECTOR VIDEO 10/20/2024 6:10 AM DIRECTOR VIDEO us Arielle Martel DO LAB - BEAKER POCT Final Re sult [facility] Lab [address] Lab (1st floor, no room number) [place] [address], [facility] * Glucose by meter (10/20/2024 5:11 AM DIRECTOR VIDEO) GLUCOSE BY METER POCT 83 70 - 99 mg/dL 10/20/2024 5:18 AM DIRECTOR VIDEO LABORATORY POC Blood, Capillary BLOOD SPECIMEN / Unknown 10/20/2024 5:11 AM DIRECTOR VIDEO 10/20/2024 5:18 AM DIRECTOR VIDEO us Arielle Martel DO LAB - BEAKER POCT Final Re sult LABORATORY [facility] [address] Lab (1st floor, no room number) [address] * (ABNORMAL) Glucose by meter (10/20/2024 2:03 AM DIRECTOR VIDEO) GLUCOSE BY METER POCT 124(H) 70 - 99 mg/dL 10/20/2024 2:09 AM DIRECTOR VIDEO LABORATORY POC Blood, Capillary BLOOD SPECIMEN / Unknown 10/20/2024 2:03 AM DIRECTOR VIDEO 10/20/2024 2:09 AM DIRECTOR VIDEO Arielle Martel DO LAB - BEAKER POCT Final Re sult Performing Organization Address [facility]/ZIP Co de Phone Number LABORATORY [facility] [address] Lab (1st floor, no room number) [place] [phone] * (ABNORMAL) Glucose by meter (10/20/2024 12:30 AM DIRECTOR VIDEO) GLUCOSE BY METER POCT 105(H) 70 - 99 mg/dL 10/20/2024 12:37 AM DIRECTOR VIDEO LABORATORY POC Blood, Capillary BLOOD SPECIMEN / Unknown 10/20/2024 12:30 AM DIRECTOR VIDEO 10/20/2024 12:37 AM DIRECTOR VIDEO Arielle Martel DO LAB - BEAKER POCT Final Re sult LABORATORY [facility] [address] Lab (1st floor, no room number) [address] * Glucose by meter (10/20/2024 12:06 AM DIRECTOR VIDEO) GLUCOSE BY METER POCT 76 70 - 99 mg/dL 10/20/2024 12:13 AM DIRECTOR VIDEO LABORATORY POC Blood, Capillary BLOOD SPECIMEN / Unknown 10/20/2024 12:06 AM DIRECTOR VIDEO 10/20/2024 12:13 AM DIRECTOR VIDEO Arielle Martel DO LAB - BEAKER POCT Final Re sult LABORATORY [facility] [address] Lab (1st floor, no room number) [place] [address] * (ABNORMAL) Glucose by meter (10/19/2024 9:06 PM DIRECTOR VIDEO) GLUCOSE BY METER POCT 162(H) 70 - 99 mg/dL 10/19/2024 9:13 PM DIRECTOR VIDEO LABORATORY POC Blood, Capillary BLOOD SPECIMEN / Unknown 10/19/2024 9:06 PM DIRECTOR VIDEO 10/19/2024 9:13 PM DIRECTOR VIDEO Arielle Martel DO LAB - BEAKER POCT Final Re sult Performing Organization Address [facility]/ZIP Co de Phone Number LABORATORY [facility] [address] Lab (1st floor, no room number) [place] [address], [facility] * (ABNORMAL) Glucose by meter (10/19/2024 5:55 PM DIRECTOR VIDEO) GLUCOSE BY METER POCT 280(H) 70 - 99 mg/dL 10/19/2024 6:02 PM DIRECTOR VIDEO LABORATORY POC Blood, Capillary BLOOD SPECIMEN / Unknown 10/19/2024 5:55 PM DIRECTOR VIDEO 10/19/2024 6:02 PM DIRECTOR VIDEO Arielleemile Martel LAB - BEAKER POCT Final Re sult LABORATORY [facility] [address] Lab (1st floor, no room number) [place] [phone], [facility] * (ABNORMAL) Glucose by meter (10/19/2024 11:44 AM DIRECTOR VIDEO) GLUCOSE BY METER POCT 235(H) 70 - 99 mg/dL 10/19/2024 11:53 AM DIRECTOR VIDEO RH LABORATORY POC Blood, Capillary BLOOD SPECIMEN / Unknown 10/19/2024 11:44 AM DIRECTOR VIDEO 10/19/2024 11:53 AM DIRECTOR VIDEO us Arielle Soaresotiliaramez DO LAB - BEAKER POCT Final Re sult Performing Organization Address City/[facility]/ZIP Co de Phone Number LABORATORY [facility] [address] Lab (1st floor, no room number) [place] [address], [facility] * (ABNORMAL) Glucose by meter (10/19/2024 8:17 AM DIRECTOR VIDEO) GLUCOSE BY METER POCT 144(H) 70 - 99 mg/dL 10/19/2024 8:27 AM DIRECTOR VIDEO LABORATORY POC Blood, Capillary BLOOD SPECIMEN / Unknown 10/19/2024 8:17 AM DIRECTOR VIDEO 10/19/2024 8:27 AM DIRECTOR VIDEO us Arielle Barretocory DO LAB - BEAKER POCT Final Re sult Performing Organization Address [facility] Co de Phone Number LABORATORY [facility] [address] Lab (1st floor, no room number) [place] [phone], [facility] * XR Chest Port 1 View (10/19/2024 8:16 AM DIRECTOR VIDEO) Anatomical Region Laterality Modality Chest Digital Radiogra phy 10/19/2024 8:16 AM DIRECTOR VIDEO Impressions 10/19/2024 12:25 PM DIRECTOR VIDEO IMPRESSION: Small bore right-sided thoracostomy tube in good position. Right- sided pleural fluid, decreased since prior with loculated pleural fluid along the lateral aspect of the right hemithorax and within the fissure. No definitive evidence for pneumothorax. Atelectasis both right and left lung bases. Normal heart size and pulmonary vascularity. Minimal pleural fluid left lung base. Narrative 10/19/2024 12:25 PM DIRECTOR VIDEO EXAM: XR CHEST PORTABLE 1 VIEW LOCATION: [facility] DATE: 10/19/2024 INDICATION: Chest tube, follow-up effusion. COMPARISON: CT 10/15/2024, 10/17/2024. Procedure Note Dawit Hernández MD - 10/19/2024 EXAM: XR CHEST PORTABLE 1 VIEW LOCATION: [facility] DATE: 10/19/2024 INDICATION: Chest tube, follow-up effusion. COMPARISON: CT 10/15/2024, 10/17/2024. IMPRESSION: Small bore right-sided thoracostomy tube in good position.Right- sided pleural fluid, decreased since prior with loculated pleuralfluid along the lateral aspect of the right hemithorax and within thefissure. No definitive evidence for pneumothorax. Atelectasis both right and left lung bases. Normal heartsize and pulmonary vascularity. Minimal pleural fluid left lung base. Chris Suarez MD IMG DIAGNOSTIC IM AGING ORDERABLES Final Result * Extra Purple Top EDTA (LAB USE ONLY) (10/19/2024 6:34 AM DIRECTOR VIDEO) Hold Specimen JI 10/19/2024 7:46 AM DIRECTOR VIDEO LABORATORY Blood STRUCTURE OF RIGHT UPPER LIMB / Unknown Venipuncture / Unknown 10/19/2024 6:34 AM DIRECTOR VIDEO 10/19/2024 6:37 AM DIRECTOR VIDEO Arielle Martel DO LAB - BLOOD ORDERABLES Fin al Result [facility] [address] Lab (1st floor, no room number) [place] [address], [facility] * Phosphorus (10/19/2024 6:34 AM DIRECTOR VIDEO) Phosphorus 3.9 2.5 - 4.5 mg/dL 10/19/2024 7:07 AM DIRECTOR VIDEO LABORATORY Blood STRUCTURE OF RIGHT UPPER LIMB / Unknown Venipuncture / Unknown 10/19/2024 6:34 AM DIRECTOR VIDEO 10/19/2024 6:37 AM DIRECTOR VIDEO Chris Suarez MD LAB - BLOOD ORDER MIRNA Final Result [facility] [address] Lab (1st floor, no room number) [place] [address] * Magnesium (10/19/2024 6:34 AM DIRECTOR VIDEO) Magnesium 2.0 1.7 - 2.3 mg/dL 10/19/2024 7:07 AM DIRECTOR VIDEO LABORATORY Blood STRUCTURE OF RIGHT UPPER LIMB / Unknown Venipuncture / Unknown 10/19/2024 6:34 AM DIRECTOR VIDEO 10/19/2024 6:37 AM DIRECTOR VIDEO us Chris Suarez MD LAB - BLOOD ORDER MIRNA Final Result Performing Organization Address City/[facility]/ZIP Co de Phone Number [facility] [address] Lab (1st floor, no room number) [place] [address], [facility] * Creatinine (10/19/2024 6:34 AM DIRECTOR VIDEO) Creatinine 0.78 0.67 - 1.17 mg/dL 10/19/2024 7:07 AM DIRECTOR VIDEO LABORATORY GFR Estimate >90 >60 mL/min/1.7 3m2 10/19/2024 7:07 AM DIRECTOR VIDEO LABORATORY Comment:eGFR calculated usin g 2020 CKD-EPI equation. Blood STRUCTURE OF RIGHT UPPER LIMB / Unknown Venipuncture / Unknown 10/19/2024 6:34 AM DIRECTOR VIDEO 10/19/2024 6:37 AM DIRECTOR VIDEO us Bernardino Garcia MD LAB - BLOOD ORDERABLES Final Result [facility] [address] Lab (1st floor, no room number) [place] [address], [facility] * (ABNORMAL) Glucose by meter (10/19/2024 2:17 AM DIRECTOR VIDEO) GLUCOSE BY METER POCT 170(H) 70 - 99 mg/dL 10/19/2024 2:24 AM DIRECTOR VIDEO RH LABORATORY POC Blood, Capillary BLOOD SPECIMEN / Unknown 10/19/2024 2:17 AM DIRECTOR VIDEO 10/19/2024 2:24 AM DIRECTOR VIDEO Arielle Martel DO LAB - BEAKER POCT Final Re sult LABORATORY [facility] [address] Lab (1st floor, no room number) [place] [phone] [place] [address] * (ABNORMAL) Glucose by meter (10/18/2024 9:31 PM DIRECTOR VIDEO) GLUCOSE BY METER POCT 195(H) 70 - 99 mg/dL 10/18/2024 9:37 PM DIRECTOR VIDEO LABORATORY POC Blood, Capillary BLOOD SPECIMEN / Unknown 10/18/2024 9:31 PM DIRECTOR VIDEO 10/18/2024 9:37 PM DIRECTOR VIDEO Arielle Martel DO LAB - BEAKER POCT Final Re sult Performing Organization Address [facility]/ZIP Co de Phone Number [facility] [address] Lab (1st floor, no room number) [place] [phone] * (ABNORMAL) Glucose by meter (10/18/2024 4:40 PM DIRECTOR VIDEO) GLUCOSE BY METER POCT 255(H) 70 - 99 mg/dL 10/18/2024 4:46 PM DIRECTOR VIDEO LABORATORY POC Blood, Capillary BLOOD SPECIMEN / Unknown 10/18/2024 4:40 PM DIRECTOR VIDEO 10/18/2024 4:46 PM DIRECTOR VIDEO Arielle Martel DO LAB - BEAKER POCT Final Re sult LABORATORY [facility] [address] Lab (1st floor, no room number) [place] [phone] * (ABNORMAL) Glucose by meter (10/18/2024 12:57 PM DIRECTOR VIDEO) GLUCOSE BY METER POCT 310(H) 70 - 99 mg/dL 10/18/2024 1:06 PM DIRECTOR VIDEO LABORATORY POC Blood, Capillary BLOOD SPECIMEN / Unknown 10/18/2024 12:57 PM DIRECTOR VIDEO 10/18/2024 1:06 PM DIRECTOR VIDEO Arielle Delonte DO LAB - BEAKER POCT Final Re sult LABORATORY [facility] [address] Lab (1st floor, no room number) [place] [phone] * (ABNORMAL) Glucose by meter (10/18/2024 8:27 AM DIRECTOR VIDEO) GLUCOSE BY METER POCT 105(H) 70 - 99 mg/dL 10/18/2024 8:34 AM DIRECTOR VIDEO LABORATORY POC Blood, Capillary BLOOD SPECIMEN / Unknown 10/18/2024 8:27 AM DIRECTOR VIDEO 10/18/2024 8:34 AM DIRECTOR VIDEO Arielle Delonte REYNOSO LAB - BEAKER POCT Final Re sult LABORATORY [facility] [address] Lab (1st floor, no room number) [place] [phone], [facility] * Extra Purple Top EDTA (LAB USE ONLY) (10/18/2024 6:33 AM DIRECTOR VIDEO) Hold Specimen JIC 10/18/2024 8:06 AM DIRECTOR VIDEO LABORATORY Blood STRUCTURE OF RIGHT UPPER LIMB / Unknown Venipuncture / Unknown 10/18/2024 6:33 AM DIRECTOR VIDEO 10/18/2024 6:53 AM DIRECTOR VIDEO Arielle Martel DO LAB - BLOOD ORDERABLES Fin al Result LABORATORY [facility] [address] [employer] Lab (1st floor, no room number) [place] [address] * (ABNORMAL) Basic metabolic panel (10/18/2024 6:33 AM DIRECTOR VIDEO) [facility] Sodium 139 135 - 145 mmol/L 10/18/2024 8:05 AM [facility] LABORATORY Potassium 3.4 3.4 - 5.3 mmol/L 10/18/2024 8:05 AM [facility] LABORATORY Chloride 99 98 - 107 mmol/L 10/18/2024 8:05 AM [facility] LABORATORY Carbon Dioxide (CO2) 31(H) 22 - 29 mmol/L 10/18/2024 8:05 AM [facility] LABORATORY Anion Gap 9 7 - 15 mmol/L 10/18/2024 8:05 AM [facility] LABOR[facility]ORY Urea Nitrogen 22.6 8.0 - 23.0 mg/dL 10/18/2024 8:05 AM [facility] LABORATORY Creatinine 0.71 0.67 - 1.17 mg/dL 10/18/2024 8:05 AM [facility] LABORATORY GFR Estimate >90 >60 mL/min/1.7 3m2 10/18/2024 8:05 AM [facility] LABORATORY Comment:eGFR calculated usmi g 2020 CKD-EPI equation. Calcium 8.5(L) 8.8 - 10.4 mg/dL 10/18/2024 8:05 AM [facility] LABORATORY Glucose 117(H) 70 - 99 mg/dL 10/18/2024 8:05 AM [facility] LABORATORY Blood STRUCTURE OF RIGHT UPPER LIMB / Unknown Venipuncture / Unknown 10/18/2024 6:33 AM DIRECTOR VIDEO 10/18/2024 6:53 AM DIRECTOR VIDEO Horacio Galan MD LAB - BLOOD ORDERABLES F inal Result [facility] [address] Lab (1st floor, no room number) [place] [address], [place] * Phosphorus (10/18/2024 6:33 AM DIRECTOR VIDEO) Phosphorus 4.1 2.5 - 4.5 mg/dL 10/18/2024 7:22 AM DIRECTOR VIDEO LABORATORY Blood STRUCTURE OF RIGHT UPPER LIMB / Unknown Venipuncture / Unknown 10/18/2024 6:33 AM DIRECTOR VIDEO 10/18/2024 6:53 AM DIRECTOR VIDEO Chris Suarez MD LAB - BLOOD ORDER MIRNA Final Result Performing Organization Address City/[facility]/ZIP Co de Phone Number LABORATORY [facility] [address] Lab (1st floor, no room number) [place] [phone] [place] [address] * Magnesium (10/18/2024 6:33 AM DIRECTOR VIDEO) Magnesium 2.1 1.7 - 2.3 mg/dL 10/18/2024 7:22 AM DIRECTOR VIDEO LABORATORY Blood STRUCTURE OF RIGHT UPPER LIMB / Unknown Venipuncture / Unknown 10/18/2024 6:33 AM DIRECTOR VIDEO 10/18/2024 6:53 AM DIRECTOR VIDEO Result [facility] Chris Suarez MD LAB - BLOOD ORDER MIRNA Final Result Performing Organization Address [facility] de Phone Number [facility] [address] Lab (1st floor, no room number) [place] [phone] * (ABNORMAL) Glucose by meter (10/18/2024 2:15 AM DIRECTOR VIDEO) GLUCOSE BY METER POCT 181(H) 70 - 99 mg/dL 10/21/2024 1:00 PM DIRECTOR VIDEO LABORATORY POC Comment:Dr/RN Notified Blood, Capillary BLOOD SPECIMEN / Unknown 10/18/2024 2:15 AM DIRECTOR VIDEO 10/21/2024 1:00 PM DIRECTOR VIDEO Arielle Martel DO LAB - BEAKER POCT Final Re sult Performing Organization Address City/[facility]/ZIP Co de Phone Number LABORATORY [facility] [address] Lab (1st floor, no room number) [place] [address] * (ABNORMAL) Glucose by meter (10/17/2024 9:08 PM DIRECTOR VIDEO) GLUCOSE BY METER POCT 255(H) 70 - 99 mg/dL 10/17/2024 9:15 PM DIRECTOR VIDEO RH LABORATORY POC Blood, Capillary BLOOD SPECIMEN / Unknown 10/17/2024 9:08 PM DIRECTOR VIDEO 10/17/2024 9:15 PM DIRECTOR VIDEO Arielle Martel DO LAB - BEAKER POCT Final Re sult Performing Organization Address [facility]/ZIP Co de Phone Number LABORATORY [facility] [address] Lab (1st floor, no room number) [place] [address] * (ABNORMAL) Glucose by meter (10/17/2024 5:27 PM DIRECTOR VIDEO) GLUCOSE BY METER POCT 245(H) 70 - 99 mg/dL 10/17/2024 5:34 PM DIRECTOR VIDEO LABORATORY POC Blood, Capillary BLOOD SPECIMEN / Unknown 10/17/2024 5:27 PM DIRECTOR VIDEO 10/17/2024 5:34 PM DIRECTOR VIDEO Arielle Martel DO LAB - BEAKER POCT Final Re sult Performing Organization Address [facility]/ZIP Co de Phone Number LABORATORY [facility] [address] Lab (1st floor, no room number) [place] [address], [facility] * XR Chest Port 1 View (10/17/2024 3:37 PM DIRECTOR VIDEO) Anatomical Region Laterality Modality Chest Digital Radiogra phy 10/17/2024 3:37 PM DIRECTOR VIDEO Impressions 10/17/2024 3:40 PM DIRECTOR VIDEO IMPRESSION: Decreased right pleural effusion with a right chest tube in place. Stable small left pleural effusion and bibasilar atelectasis. Median sternotomy and aortic valvular prosthesis. No pneumothorax. Narrative 10/17/2024 3:40 PM DIRECTOR VIDEO EXAM: XR CHEST PORT 1 VIEW LOCATION: [facility] DATE: 10/17/2024 INDICATION: post right chest tube placement for right pleural effusion COMPARISON: 10/15/2024 Procedure Note Patito Velasquez MD - 10/17/2024 EXAM: XR CHEST PORT 1 VIEW LOCATION: [facility] DATE: 10/17/2024 INDICATION: post right chest tube placement for right pleural effusion COMPARISON: 10/15/2024 IMPRESSION: Decreased right pleural effusion with a right chest tube inplace. Stable small left pleural effusion and bibasilar atelectasis.Median sternotomy and aortic valvular prosthesis. No pneumothorax. us Kayla Baca MD IMG DIAGNOSTIC IMAGING ORDERABLE S Final Result * (ABNORMAL) Glucose by meter (10/17/2024 12:43 PM DIRECTOR VIDEO) GLUCOSE BY METER POCT 278(H) 70 - 99 mg/dL 10/17/2024 12:50 PM DIRECTOR VIDEO LABORATORY POC Blood, Capillary BLOOD SPECIMEN / Unknown 10/17/2024 12:43 PM DIRECTOR VIDEO 10/17/2024 12:50 PM DIRECTOR VIDEO us Arielle Martel DO LAB - BEAKER POCT Final Re sult LABORATORY [facility] [address] Lab (1st floor, no room number) [place] [address], [facility] * (ABNORMAL) Glucose by meter (10/17/2024 8:25 AM DIRECTOR VIDEO) GLUCOSE BY METER POCT 184(H) 70 - 99 mg/dL 10/21/2024 12:59 PM DIRECTOR VIDEO LABORATORY POC Blood, Capillary BLOOD SPECIMEN / Unknown 10/17/2024 8:25 AM DIRECTOR VIDEO 10/21/2024 12:59 PM DIRECTOR VIDEO Arielle Martel DO LAB - BEAKER POCT Final Re sult LABORATORY [facility] [address] Lab (1st floor, no room number) [address] * Extra Purple Top EDTA (LAB USE ONLY) (10/17/2024 6:53 AM DIRECTOR VIDEO) Hold Specimen JIC 10/17/2024 8:16 AM DIRECTOR VIDEO LABORATORY Blood TOPOGRAPHY UNKNOWN / Unknown Venipuncture / Unknown 10/17/2024 6:53 AM DIRECTOR VIDEO 10/17/2024 7:10 AM DIRECTOR VIDEO Arielle Martel DO LAB - BLOOD ORDERABLES Fin al Result Performing Organization Address City/[facility]/ZIP Co de Phone Number [facility] [address] Lab (1st floor, no room number) [address] * Phosphorus (10/17/2024 6:53 AM DIRECTOR VIDEO) Phosphorus 3.5 2.5 - 4.5 mg/dL 10/17/2024 7:32 AM DIRECTOR VIDEO RH LABORATORY Blood TOPOGRAPHY UNKNOWN / Unknown Venipuncture / Unknown 10/17/2024 6:53 AM DIRECTOR VIDEO 10/17/2024 7:09 AM DIRECTOR VIDEO Chris Suarez MD LAB - BLOOD ORDER MIRNA Final Result [facility] [address] Lab (1st floor, no room number) [address] * Magnesium (10/17/2024 6:53 AM DIRECTOR VIDEO) Magnesium 2.2 1.7 - 2.3 mg/dL 10/17/2024 7:32 AM DIRECTOR VIDEO RH LABORATORY Blood TOPOGRAPHY UNKNOWN / Unknown Venipuncture / Unknown 10/17/2024 6:53 AM DIRECTOR VIDEO 10/17/2024 7:09 AM DIRECTOR VIDEO Chris Suarez MD LAB - BLOOD ORDER MIRNA Final Result [facility] [address] Lab (1st floor, no room number) [place] [phone] * Creatinine (10/17/2024 6:53 AM DIRECTOR VIDEO) Creatinine 0.71 0.67 - 1.17 mg/dL 10/17/2024 7:32 AM DIRECTOR VIDEO LABORATORY GFR Estimate >90 >60 mL/min/1.7 3m2 10/17/2024 7:32 AM DIRECTOR VIDEO LABORATORY Comment:eGFR calculated usmi 2020 CKD-EPI equation. Blood TOPOGRAPHY UNKNOWN / Unknown Venipuncture / Unknown 10/17/2024 6:53 AM DIRECTOR VIDEO 10/17/2024 7:09 AM DIRECTOR VIDEO Bernardino Garcia MD LAB - BLOOD ORDERABLES Final Result Performing Organization Address City/[facility]/ZIP Co de Phone Number [facility] [address] Lab (1st floor, no room number) [place] [phone] * (ABNORMAL) Glucose by meter (10/17/2024 2:21 AM DIRECTOR VIDEO) GLUCOSE BY METER POCT 186(H) 70 - 99 mg/dL 10/17/2024 2:28 AM DIRECTOR VIDEO LABORATORY POC Comment:Dr/RN Notified Blood, Capillary BLOOD SPECIMEN / Unknown 10/17/2024 2:21 AM DIRECTOR VIDEO 10/17/2024 2:28 AM DIRECTOR VIDEO Arielle Martel DO LAB - BEAKER POCT Final Re sult LABORATORY [facility] [address] Lab (1st floor, no room number) [place] [phone] * (ABNORMAL) Glucose by meter (10/16/2024 9:42 PM DIRECTOR VIDEO) GLUCOSE BY METER POCT 292(H) 70 - 99 mg/dL 10/16/2024 9:49 PM DIRECTOR VIDEO LABORATORY POC Blood, Capillary BLOOD SPECIMEN / Unknown 10/16/2024 9:42 PM DIRECTOR VIDEO 10/16/2024 9:49 PM DIRECTOR VIDEO Result [facility] Arielle Martel DO LAB - BEAKER POCT Final Re sult LABORATORY [facility] [address] [facility] Lab (1st floor, no room number) [place] [phone] * (ABNORMAL) Glucose by meter (10/16/2024 5:37 PM DIRECTOR VIDEO) GLUCOSE BY METER POCT 284(H) 70 - 99 mg/dL 10/16/2024 5:44 PM DIRECTOR VIDEO LABORATORY POC Comment:Dr/RN Notified Blood, Capillary BLOOD SPECIMEN / Unknown 10/16/2024 5:37 PM DIRECTOR VIDEO 10/16/2024 5:44 PM DIRECTOR VIDEO Result [facility] Arielle Martel DO LAB - BEAKER POCT Final Re sult LABORATORY [facility] [address] Lab (1st floor, no room number) [place] [phone] * (ABNORMAL) Glucose by meter (10/16/2024 12:05 PM DIRECTOR VIDEO) GLUCOSE BY METER POCT 240(H) 70 - 99 mg/dL 10/16/2024 12:13 PM DIRECTOR VIDEO LABORATORY POC Blood, Capillary BLOOD SPECIMEN / Unknown 10/16/2024 12:05 PM DIRECTOR VIDEO 10/16/2024 12:13 PM DIRECTOR VIDEO Result [facility] Arielle Martel DO LAB - BEAKER POCT Final Re sult RH LABORATORY [facility] [address] [facility] Lab (1st floor, no room number) [place] [address] * US Chest Tube Insert (10/16/2024 11:46 AM DIRECTOR VIDEO) Anatomical Region Laterality Modality Chest Ultrasound 10/16/2024 11:4 6 AM DIRECTOR VIDEO Impressions 10/16/2024 12:07 PM DIRECTOR VIDEO IMPRESSION: Right-sided 10 Bahraini chest tube placement under ultrasound guidance. Narrative 10/16/2024 12:07 PM DIRECTOR VIDEO PROCEDURE: Ultrasound guided right sided 10 Bahraini chest tube placement DATE: 10/16/2024 MEDICATIONS: 1% [...] Lidocaine. Under direct ultrasound guidance, a 5 Bahraini Yueh needle was advanced into the pleural space via an intercostal approach. The catheter was advanced off of the needle. A 0.035 guidewire was advanced through the micropuncture sheath and the tract was serially dilated. A 10 Bahraini locking loop chest tube was placed with [...] in stable condition. Procedure Note Shantel Corral, - 10/16/2024 PROCEDURE: Ultrasound guided right sided 10 Bahraini chest tube placement DATE: 10/16/2024 MEDICATIONS: 1% [...] 1% Lidocaine. Under direct ultrasoundguidance, a 5 Bahraini Yueh needle was advanced into the pleural [...] interventional radiology instable condition. IMPRESSION: Right-sided 10 Bahraini chest tube placement under ultrasound guidance. us Kayla Baca MD [facility] ORDERABLES Final Result * (ABNORMAL) Glucose by meter (10/16/2024 8:14 AM DIRECTOR VIDEO) GLUCOSE BY METER POCT 230(H) 70 - 99 mg/dL 10/16/2024 8:21 AM DIRECTOR VIDEO LABORATORY POC Blood, Capillary BLOOD SPECIMEN / Unknown 10/16/2024 8:14 AM DIRECTOR VIDEO 10/16/2024 8:21 AM DIRECTOR VIDEO Arielle Martel DO LAB - BEAKER POCT Final Re sult LABORATORY [facility] [address] Lab (1st floor, no room number) [place] [phone] [place] [address] * Phosphorus (10/16/2024 7:44 AM DIRECTOR VIDEO) Phosphorus 3.3 2.5 - 4.5 mg/dL 10/16/2024 8:19 AM DIRECTOR VIDEO LABORATORY Blood STRUCTURE OF LEFT HAND / Unknown Venipuncture / Unknown 10/16/2024 7:44 AM DIRECTOR VIDEO 10/16/2024 7:53 AM DIRECTOR VIDEO Bernardino Garcia MD LAB - BLOOD ORDERABLES Final Result Performing Organization Address [facility]/ZIP Co de Phone Number [facility] [address] Lab (1st floor, no room number) [place] [phone] [place] [address] * Magnesium (10/16/2024 7:44 AM DIRECTOR VIDEO) Magnesium 2.2 1.7 - 2.3 mg/dL 10/16/2024 8:19 AM DIRECTOR VIDEO LABORATORY Blood STRUCTURE OF LEFT HAND / Unknown Venipuncture / Unknown 10/16/2024 7:44 AM DIRECTOR VIDEO 10/16/2024 7:53 AM DIRECTOR VIDEO Bernardino Garcia MD LAB - BLOOD ORDERABLES Final Result Performing Organization Address City/[facility]/ZIP Co de Phone Number [facility] [address] Lab (1st floor, no room number) [address] * Creatinine (10/16/2024 7:44 AM DIRECTOR VIDEO) Creatinine 0.68 0.67 - 1.17 mg/dL 10/16/2024 8:19 AM DIRECTOR VIDEO LABORATORY GFR Estimate >90 >60 mL/min/1.7 3m2 10/16/2024 8:19 AM DIRECTOR VIDEO LABORATORY Comment:eGFR calculated usin 2020 CKD-EPI equation. Blood STRUCTURE OF LEFT HAND / Unknown Venipuncture / Unknown 10/16/2024 7:44 AM DIRECTOR VIDEO 10/16/2024 7:53 AM DIRECTOR VIDEO Bernardino Garcia MD LAB - BLOOD ORDERABLES Final Result [facility] [address] Lab (1st floor, no room number) [place] [address], [facility] * (ABNORMAL) Glucose by meter (10/16/2024 1:18 AM DIRECTOR VIDEO) GLUCOSE BY METER POCT 301(H) 70 - 99 mg/dL 10/16/2024 1:25 AM DIRECTOR VIDEO LABORATORY POC Blood, Capillary BLOOD SPECIMEN / Unknown 10/16/2024 1:18 AM DIRECTOR VIDEO 10/16/2024 1:25 AM DIRECTOR VIDEO Arielle Martel DO LAB - BEAKER POCT Final Re sult Performing Organization Address [facility]/ZIP Co de Phone Number [facility] [address] Lab (1st floor, no room number) [place] [address], [facility] * (ABNORMAL) Glucose by meter (10/15/2024 9:21 PM DIRECTOR VIDEO) GLUCOSE BY METER POCT 330(H) 70 - 99 mg/dL 10/15/2024 9:28 PM DIRECTOR VIDEO LABORATORY POC Blood, Capillary BLOOD SPECIMEN / Unknown 10/15/2024 9:21 PM DIRECTOR VIDEO 10/15/2024 9:28 PM DIRECTOR VIDEO Arielle Martel DO LAB - BEAKER POCT Final Re sult LABORATORY [facility] [address] Lab (1st floor, no room number) [place] [address], [facility] * (ABNORMAL) Glucose by meter (10/15/2024 6:09 PM DIRECTOR VIDEO) [facility] GLUCOSE BY METER POCT 315(H) 70 - 99 mg/dL 10/15/2024 6:15 PM DIRECTOR VIDEO LABORATORY POC Blood, Capillary BLOOD SPECIMEN / Unknown 10/15/2024 6:09 PM DIRECTOR VIDEO 10/15/2024 6:15 PM DIRECTOR VIDEO us Arielle Martel DO LAB - BEAKER POCT Final Re sult LABORATORY [facility] [address] Lab (1st floor, no room number) [place] [address] * CT Chest w/o Contrast (10/15/2024 3:37 PM DIRECTOR VIDEO) Anatomical Region Laterality Modality Chest, SUBRAD CT BODY, UMP CT CHEST, RAD CT Computed Tomography 10/15/2024 3:37 PM DIRECTOR VIDEO Impressions 10/15/2024 3:50 PM DIRECTOR VIDEO IMPRESSION: 1. Increased size of a moderate right pleural effusion which is now partly loculated along the upper and mid right pleural surface, and new loculated fluid in the right major fissure. 2. New small left pleural effusion. 3. New mild groundglass opacities in the left lung, likely due to edema. Increased dense atelectasis and consolidation in the bilateral lung bases. 4. Partly visualized indeterminate hepatic lesions, better characterized by the recent MRI. Narrative 10/15/2024 3:50 PM DIRECTOR VIDEO EXAM: CT CHEST W/O CONTRAST LOCATION: [facility] DATE: 10/15/2024 INDICATION: R pleural effusion COMPARISON: Chest x-ray yesterday and chest CT on 10/12/2024 TECHNIQUE: CT chest without IV contrast. Multiplanar reformats were obtained. Dose reduction techniques were used. CONTRAST: None. FINDINGS: LUNGS AND PLEURA: A [id number] sized partly loculated right pleural effusion predominantly along the upper and mid right lung, increased in size since 10/12/2024. Similarly, small amount of loculated fluid in the right major fissure is new Small layering left pleural effusion is new. Dense atelectasis in the right lung base. New mild groundglass opacities in the left upper lobe and compressive atelectasis in the left lower lobe. MEDIASTINUM/AXILLAE: No lymphadenopathy. Mild cardiomegaly. Aortic valvular prosthesis. CORONARY ARTERY CALCIFICATION: Severe. UPPER ABDOMEN: Redemonstration of indeterminate lesions in the liver, better characterized by the MRI yesterday simple cyst in the left kidney. MUSCULOSKELETAL: Median sternotomy. No suspicious lesions in the bones. Procedure Note Patito Velasquez MD - 10/15/2024 EXAM: CT CHEST W/O CONTRAST LOCATION: [facility] DATE: 10/15/2024 INDICATION: R pleural effusion COMPARISON: Chest x-ray yesterday and chest CT on 10/12/2024 TECHNIQUE: CT chest without IV contrast. Multiplanar reformats wereobtained. Dose reduction techniques were used. CONTRAST: None. FINDINGS: LUNGS AND PLEURA: A [id number] sized partly loculated right pleuraleffusion predominantly along the upper and mid right lung, increased insize since 10/12/2024. Similarly, small amount of loculated fluid in theright major fissure is new Small layering left pleural effusion is new. Dense atelectasis in the right lungbase. New mild groundglass opacities in the left upper lobe andcompressive atelectasis in the left lower lobe. MEDIASTINUM/AXILLAE: No lymphadenopathy. Mild cardiomegaly. Aorticvalvular prosthesis. CORONARY ARTERY CALCIFICATION: Severe. UPPER ABDOMEN: Redemonstration of indeterminate lesions in the liver,better characterized by the MRI yesterday simple cyst in the leftkidney. MUSCULOSKELETAL: Median sternotomy. No suspicious lesions in the bones. IMPRESSION: 1. Increased size of a moderate right pleural effusion which is nowpartly loculated along the upper and mid right pleural surface, and newloculated fluid in the right major fissure. 2. New small left pleural effusion. 3. New mild groundglass opacities in the left lung, likely due to edema.Increased dense atelectasis and consolidation in the bilateral lungbases. 4. Partly visualized indeterminate hepatic lesions, better characterizedby the recent MRI. Kayla Baca MD IMG CT ORDERABLES Final Result * MR Brain w/o & w Contrast (10/15/2024 3:25 PM DIRECTOR VIDEO) Anatomical Region Laterality Modality Head, SUBRAD MR NEURO, UMP MR NEURO, RAD MR Magnetic Resonance 10/15/2024 3:25 PM DIRECTOR VIDEO Impressions 10/17/2024 2:27 PM DIRECTOR VIDEO IMPRESSION: 1. Interval development of 1 cm linear focus of restricted diffusion posterior to the right frontal resection cavity. Differential considerations include acute ischemia, posttreatment change, or recurrence. Recommend continued radiographic follow-up. 2. Otherwise similar appearance of the right frontal resection cavity. Narrative 10/17/2024 2:27 PM DIRECTOR VIDEO EXAM: MR BRAIN W/O and W CONTRAST LOCATION: [facility] DATE: 10/15/2024 INDICATION: h o [...] MR BRAIN W/O and W CONTRAST LOCATION: [facility] DATE: 10/15/2024 INDICATION: h o [...] appearance of the right frontal resection cavity. Bernardino Garcia MD IMG MRI ORDERABLES Final Res ult * (ABNORMAL) Glucose by meter (10/15/2024 11:51 AM DIRECTOR VIDEO) GLUCOSE BY METER POCT 293(H) 70 - 99 mg/dL 10/15/2024 11:58 AM DIRECTOR VIDEO LABORATORY POC Comment:Dr/RN Notified Blood, Capillary BLOOD SPECIMEN / Unknown 10/15/2024 11:51 AM DIRECTOR VIDEO 10/15/2024 11:58 AM DIRECTOR VIDEO Arielle Martel DO LAB - BEAKER POCT Final Re sult LABORATORY [facility] [address] Lab (1st floor, no room number) [address] * (ABNORMAL) Glucose by meter (10/15/2024 8:02 AM DIRECTOR VIDEO) GLUCOSE BY METER POCT 250(H) 70 - 99 mg/dL 10/15/2024 8:10 AM DIRECTOR VIDEO LABORATORY POC Comment:Dr/RN Notified Blood, Capillary BLOOD SPECIMEN / Unknown 10/15/2024 8:02 AM DIRECTOR VIDEO 10/15/2024 8:10 AM DIRECTOR VIDEO Arielle Martel DO LAB - BEAKER POCT Final Re sult Performing Organization Address [facility]/ZIP Co de Phone Number LABORATORY [facility] [address] Lab (1st floor, no room number) [address] * (ABNORMAL) Glucose by meter (10/15/2024 6:40 AM DIRECTOR VIDEO) GLUCOSE BY METER POCT 229(H) 70 - 99 mg/dL 10/15/2024 6:47 AM DIRECTOR VIDEO LABORATORY POC Blood, Capillary BLOOD SPECIMEN / Unknown 10/15/2024 6:40 AM DIRECTOR VIDEO 10/15/2024 6:47 AM DIRECTOR VIDEO Arielle Delonte LAB - BEAKER POCT Final Re sult Performing Organization Address City/[facility]/ZIP Co de Phone Number LABORATORY [facility] [address] Lab (1st floor, no room number) [address] * (ABNORMAL) CBC with platelets and differential (10/15/2024 5:45 AM DIRECTOR VIDEO) WBC Count 10.7 4.0 - 11.0 10e3/uL 10/15/2024 5:53 AM DIRECTOR VIDEO LABORATORY RBC Count 4.26(L) 4.40 - 5.90 10e6/uL 10/15/2024 5:53 AM DIRECTOR VIDEO [facility] LAB[facility] Hemoglobin 12.9(L) 13.3 - 17.7 g/dL 10/15/2024 5:53 AM DIRECTOR VIDEO [facility] Hematocrit 37.1(L) 40.0 - 53.0 % 10/15/2024 5:53 AM DIRECTOR VIDEO [facility] LAB[facility] MCV 87 78 - 100 fL 10/15/2024 5:53 AM DIRECTOR VIDEO [facility] LAB[facility] MCH 30.3 26.5 - 33.0 pg 10/15/2024 5:53 AM DIRECTOR VIDEO [facility] LAB[facility] MCHC 34.8 31.5 - 36.5 g/dL 10/15/2024 5:53 AM DIRECTOR VIDEO [facility] LAB[facility] RDW 12.1 10.0 - 15.0 % 10/15/2024 5:53 AM DIRECTOR VIDEO [facility] Platelet Count 240 150 - 450 10e3/uL 10/15/2024 5:53 AM DIRECTOR VIDEO [facility] % Neutrophils 79 % 10/15/2024 5:53 AM DIRECTOR VIDEO [facility] % Lymphocytes 8 % 10/15/2024 5:53 AM DIRECTOR VIDEO [facility] % Monocytes 11 % 10/15/2024 5:53 AM DIRECTOR VIDEO [facility] % Eosinophils 2 % 10/15/2024 5:53 AM DIRECTOR VIDEO [facility] % Basophils 0 % 10/15/2024 5:53 AM DIRECTOR VIDEO [facility] % Immature Granulocytes 0 % 10/15/2024 5:53 AM DIRECTOR VIDEO [facility] LAB[facility]ORY NRBCs per 100 WBC 0 <1 /100 025 5:53 AM DIRECTOR VIDEO [facility] LABORATORY Absolute Neutrophils 8.4(H) 1.6 - 8.3 10e3/uL 10/15/2024 5:53 AM DIRECTOR VIDEO [facility] LAB[facility]AT[facility] Absolute Lymphocytes 0.8 0.8 - 5.3 10e3/uL 10/15/2024 5:53 AM DIRECTOR VIDEO [facility] LABORAT[facility] Absolute Monocytes 1.2 0.0 - 1.3 10e3/uL 10/15/2024 5:53 AM DIRECTOR VIDEO [facility] LABORATORY Absolute Eosinophils 0.2 0.0 - 0.7 10e3/uL 10/15/2024 5:53 AM DIRECTOR VIDEO [facility] LABORATORY Absolute Basophils 0.0 0.0 - 0.2 10e3/uL 10/15/2024 5:53 AM DIRECTOR VIDEO [facility] LAB[facility]AT[facility] Absolute Immature Granulocytes 0.0 <=0.4 10e3/uL 10/15/2024 5:53 AM DIRECTOR VIDEO [facility] LABORATORY Absolute NRBCs 0.0 10e3/uL 10/15/2024 5:53 AM [facility] LABORATORY Blood STRUCTURE OF LEFT HAND / Unknown Venipuncture / Unknown 10/15/2024 5:45 AM DIRECTOR VIDEO 10/15/2024 5:51 AM DIRECTOR VIDEO Ortiz Chew MD LAB - BLOOD ORDERABLES Final Result LABORATORY [facility] [address] Lab (1st floor, no room number) [place] [address], [facility] * (ABNORMAL) Basic metabolic panel (10/15/2024 5:45 AM DIRECTOR VIDEO) Sodium 131(L) 135 - 145 mmol/L 10/15/2024 6:11 AM [facility] LABORATORY Potassium 4.0 3.4 - 5.3 mmol/L 10/15/2024 6:11 AM [facility] LABORATORY Chloride 95(L) 98 - 107 mmol/L 10/15/2024 6:11 AM [facility] LABORATORY Carbon Dioxide (CO2) 23 22 - 29 mmol/L 10/15/2024 6:11 AM [facility] LABORATORY Anion Gap 13 7 - 15 mmol/L 10/15/2024 6:11 AM [facility] LABORATORY Urea Nitrogen 27.6(H) 8.0 - 23.0 mg/dL 10/15/2024 6:11 AM [facility] LABORATORY Creatinine 0.89 0.67 - 1.17 mg/dL 10/15/2024 6:11 AM [facility] LABORATORY GFR Estimate >90 >60 mL/min/1.7 3m2 10/15/2024 6:11 AM [facility] LABORATORY Comment:eGFR calculated usin 2020 CKD-EPI equation. Calcium 8.6(L) 8.8 - 10.4 mg/dL 10/15/2024 6:11 AM [facility] LABORATORY Glucose 260(H) 70 - 99 mg/dL 10/15/2024 6:11 AM [facility] LABORATORY Blood STRUCTURE OF LEFT HAND / Unknown Venipuncture / Unknown 10/15/2024 5:45 AM DIRECTOR VIDEO 10/15/2024 5:51 AM DIRECTOR VIDEO Ortiz Chew MD LAB - BLOOD ORDERABLES Final Result [facility] [address] Lab (1st floor, no room number) [address] * Magnesium (10/15/2024 5:45 AM DIRECTOR VIDEO) Magnesium 2.2 1.7 - 2.3 mg/dL 10/15/2024 6:11 AM DIRECTOR VIDEO [facility] LABORATORY Blood STRUCTURE OF LEFT HAND / Unknown Venipuncture / Unknown 10/15/2024 5:45 AM DIRECTOR VIDEO 10/15/2024 5:51 AM DIRECTOR VIDEO Ortiz Chew MD LAB - BLOOD ORDERABLES Final Result Performing Organization Address [facility]/ZIP Co de Phone Number [facility] [address] Lab (1st floor, no room number) [address] * Phosphorus (10/15/2024 5:45 AM DIRECTOR VIDEO) Phosphorus 3.3 2.5 - 4.5 mg/dL 10/15/2024 6:11 AM DIRECTOR VIDEO [facility] LABORATORY Blood STRUCTURE OF LEFT HAND / Unknown Venipuncture / Unknown 10/15/2024 5:45 AM DIRECTOR VIDEO 10/15/2024 5:51 AM DIRECTOR VIDEO Ortiz Chew MD LAB - BLOOD ORDERABLES Final Result Performing Organization Address City/[facility]/ZIP Co de Phone Number [facility] [address] Lab (1st floor, no room number) [address] * Lactic Acid Whole Blood w/ 1x repeat in 2 hrs when >2 (10/15/2024 2:30 AM DIRECTOR VIDEO) Lactic Acid, Initial 1.5 0.7 - 2.0 mmol/L 10/15/2024 2:39 AM DIRECTOR VIDEO [facility] LABORATORY Blood STRUCTURE OF LEFT HAND / Unknown Venipuncture / Unknown 10/15/2024 2:30 AM DIRECTOR VIDEO 10/15/2024 2:37 AM DIRECTOR VIDEO Result [facility] Ortiz Chew MD LAB - BLOOD ORDERABLES Final Result LABORATORY [facility] [address] Lab (1st floor, no room number) [place] [address] * (ABNORMAL) Glucose by meter (10/15/2024 2:17 AM DIRECTOR VIDEO) GLUCOSE BY METER POCT 358(H) 70 - 99 mg/dL 10/15/2024 2:24 AM DIRECTOR VIDEO LABORATORY POC Blood, Capillary BLOOD SPECIMEN / Unknown 10/15/2024 2:17 AM DIRECTOR VIDEO 10/15/2024 2:24 AM DIRECTOR VIDEO Result [facility] Arielle Martel DO LAB - BEAKER POCT Final Re sult LABORATORY POC [facility] [address] Lab (1st floor, no room number) [place] [address] * EKG 12-lead, tracing only (10/15/2024 1:33 AM DIRECTOR VIDEO) Systolic Blood Pressure mmHg RADIOLOGY RESULTS Diastolic Blood Pressure mmHg RADIOLOGY RESULTS Ventricular Rate 146 BPM RAD IOLOGY RESULTS Atrial Rate 192 BPM RADIOLOG Y RESULTS OH Interval ms RADIOLOG Y RESULTS QRS Duration 108 ms RADIOLO GY RESULTS QT 318 ms RADIOLOGY RESULTS QTc 495 ms RADIOLOGY RESULTS P [place] degrees RADIOLOGY RESULTS R AXIS 9 degrees RADIOLOGY RESULTS T [place] 79 degrees RADIOLOGY RESULTS Interpretation ECG Atrial fibrillation with rapid ventricular response Incomplete right bundle branch block ST depression, consider subendocardial injury Abnormal ECG Confirmed by CAROLYNE BURTON ([id number]) on 10/15/2024 3:06:01 PM RADIOLOGY RESULTS 10/15/2024 1:33 AM DIRECTOR VIDEO 10/15/2024 3:06 PM DIRECTOR VIDEO Horacio Galan MD ECG ORDERABLES Edited R esult - Final Performing Organization Address City/[facility]/ZIP Co de Phone Number RADIOLOGY RESULTS * (ABNORMAL) Glucose by meter (10/14/2024 10:05 PM DIRECTOR VIDEO) GLUCOSE BY METER POCT 321(H) 70 - 99 mg/dL 10/14/2024 10:11 PM DIRECTOR VIDEO LABORATORY POC Blood, Capillary BLOOD SPECIMEN / Unknown 10/14/2024 10:05 PM DIRECTOR VIDEO 10/14/2024 10:11 PM DIRECTOR VIDEO Arielle Martel DO LAB - BEAKER POCT Final Re sult Performing Organization Address [facility]/ZIP Co de Phone Number LABORATORY [facility] [address] Lab (1st floor, no room number) [place] [phone] [place] [address] * (ABNORMAL) Glucose by meter (10/14/2024 6:11 PM DIRECTOR VIDEO) GLUCOSE BY METER POCT 269(H) 70 - 99 mg/dL 10/14/2024 6:18 PM DIRECTOR VIDEO LABORATORY POC Blood, Capillary BLOOD SPECIMEN / Unknown 10/14/2024 6:11 PM DIRECTOR VIDEO 10/14/2024 6:18 PM DIRECTOR VIDEO Arielle Martel DO LAB - BEAKER POCT Final Re sult Performing Organization Address [facility]/ZIP Co de Phone Number LABORATORY [facility] [address] Lab (1st floor, no room number) [place] [phone] [place] [address] * MR Liver wo & w Contrast (10/14/2024 4:17 PM DIRECTOR VIDEO) Anatomical Region Laterality Modality Abdomen/Pelvis, SUBRAD MR BODY, UMP MR BODY, RAD MR Magnetic Resonance 10/14/2024 4:17 PM DIRECTOR VIDEO Impressions 10/14/2024 4:33 PM DIRECTOR VIDEO IMPRESSION: 1. Multifocal indeterminate lesions in the liver. These do not have T2 characteristics of simple cysts. Differential includes metastatic disease, among other considerations. Recommend biopsy of the largest lesion in the posterior right lobe of the liver. 2. Abnormal findings requiring follow-up. Narrative 10/14/2024 4:33 PM DIRECTOR VIDEO EXAM: MR LIVER W/O and W CONTRAST LOCATION: [facility] DATE: 10/14/2024 INDICATION: lesions seen [...] MR LIVER W/O and W CONTRAST LOCATION: [facility] DATE: 10/14/2024 INDICATION: lesions seen [...] in the liver. These do not have [id number] of simple cysts. Differential includes metastatic disease,among other considerations. Recommend biopsy of the largest lesion in theposterior right lobe of the liver. 2. Abnormal findings requiring follow-up. us Ortiz Chew MD [facility] MRI ORDERABLES Final Resu lt * MRSA MSSA PCR, Nasal Swab (10/14/2024 1:30 PM DIRECTOR VIDEO) MRSA Target DNA Negative Negative 10/14/2024 5:06 PM DIRECTOR VIDEO [facility] SA Target DNA Positive 10/14/2024 5:06 PM DIRECTOR VIDEO [facility] Swab BOTH ANTERIOR NARES / Unknown Non-blood Collection / Unknown 10/14/2024 1:30 PM DIRECTOR VIDEO 10/14/2024 1:36 PM DIRECTOR VIDEO Narrative [facility] - 10/14/2024 5:06 PM DIRECTOR VIDEO The [employer] Xpert SA Nasal Complete assay performed in the el? Dx System is a qualitative in vitro [...] result does not preclude MRSA/SA nasal colonization. Ortiz Chew MD LAB - MICRO GENERAL ORDERABLE S Final Result [facility] Inf. Diseases Di[facility]. Lab [address] [facility], [address] [place] [address], [facility] * (ABNORMAL) Glucose by meter (10/14/2024 11:38 AM DIRECTOR VIDEO) [facility] GLUCOSE BY METER POCT 229(H) 70 - 99 mg/dL 10/14/2024 11:45 AM DIRECTOR VIDEO LABORATORY POC Blood, Capillary BLOOD SPECIMEN / Unknown 10/14/2024 11:38 AM DIRECTOR VIDEO 10/14/2024 11:45 AM DIRECTOR VIDEO Arielle NG - CARLOS ALBERTOAKER POCT Final Re sult LABORATORY POC [facility] [address] [facility] Lab (1st floor, no room number) [place] [address], [facility] * US Thoracentesis (10/14/2024 11:13 AM DIRECTOR VIDEO) Anatomical Region Laterality Modality Chest Ultrasound 10/14/2024 11:1 3 AM DIRECTOR VIDEO Impressions 10/14/2024 3:20 PM DIRECTOR VIDEO IMPRESSION: Status post right ultrasound-guided thoracentesis. Reference CPT Code: 64655 Narrative 10/14/2024 3:20 PM DIRECTOR VIDEO EXAM: 1. RIGHT THORACENTESIS 2. ULTRASOUND GUIDANCE LOCATION: [facility] DATE: 10/14/2024 INDICATION: Pleural effusion. PROCEDURE: Informed consent obtained. Time out performed. The chest was prepped and draped in sterile fashion. 10 mL of 1 % lidocaine was infused into the local soft tissues. Under direct ultrasound guidance, a 5 Bahraini catheter system was placed into the pleural effusion. 0.1 liters of clear yellow fluid were removed and sent to lab, if requested. Patient tolerated procedure well. Ultrasound imaging was obtained and placed in the patient's permanent medical record. Procedure Note Kojo Dent MD - 10/14/2024 EXAM: 1. RIGHT THORACENTESIS 2. ULTRASOUND GUIDANCE LOCATION: [facility] DATE: 10/14/2024 INDICATION: Pleural effusion. [...] post right ultrasound-guided thoracentesis. Reference CPT Code: 36680 us Ortiz Chew MD [facility] US ORDERABLES Final Resul t * Differential Body Fluid (10/14/2024 11:08 AM DIRECTOR VIDEO) % Neutrophils 97 % YARIEL 10/14/2024 1:41 PM DIRECTOR VIDEO [facility] % Lymphocytes 0 % YARIEL 10/14/2024 1:41 PM DIRECTOR VIDEO [facility] % Monocyte/Macroph ages 3 % YARIEL 10/14/2024 1:41 PM DIRECTOR VIDEO [facility] Pleural fluid RIGHT LUNG STRUCTURE / Unknown Non-blood Collection / Unknown 10/14/2024 11:08 AM DIRECTOR VIDEO 10/14/2024 11:20 AM DIRECTOR VIDEO Narrative [facility] - 10/14/2024 1:41 PM DIRECTOR VIDEO No reference ranges have been established. This result should be interpreted in the context of the patient's clinical condition and compared to simultaneous measurement in the patient's blood. Ortiz Chew MD LAB - BODY FLUIDS ORDERABLES Final Result Performing Organization Address City/[facility]/ZIP Co de Phone Number [facility] [address] Lab (1st floor, no room number) [place] [address] * (ABNORMAL) Cell Count Body Fluid (10/14/2024 11:08 AM DIRECTOR VIDEO) Color Yellow Colorless, Yellow YARIEL 10/14/2024 1:40 PM DIRECTOR VIDEO LABORATORY Clarity Turbid(A) Clear YARIEL 10/14/2024 1:40 PM DIRECTOR VIDEO LABORATORY Cell Count Fluid Source Pleural Cavity, Right 10/14/2024 1:40 PM DIRECTOR VIDEO LABORATORY Total Nucleated Cells 12,185 /uL YARIEL 10/14/2024 1:40 PM DIRECTOR VIDEO LABORATORY Pleural fluid RIGHT LUNG STRUCTURE / Unknown Non-blood Collection / Unknown 10/14/2024 11:08 AM DIRECTOR VIDEO 10/14/2024 11:20 AM DIRECTOR VIDEO Narrative [facility] - 10/14/2024 1:40 PM DIRECTOR VIDEO No reference ranges have been established. This result should be interpreted in the context of the patient's clinical condition and compared to simultaneous measurement in the patient's blood. Small clot present, count may be inaccurate. us Ortiz Chew MD LAB - BODY FLUIDS ORDERABLES Final Result Performing Organization Address City/[facility]/ZIP Co de Phone Number [facility] [address] Lab (1st floor, no room number) [place] [address] * Cytology, non-gynecologic (10/14/2024 11:08 AM DIRECTOR VIDEO) Final Diagnosis Specimen A. Pleural fluid for cytology: Interpretation: Negative for malignancy Other Findings: Acute inflammation present. Adequacy: Satisfactory for evaluation 10/16/2024 3:40 PM [facility] Clinical Information 63 year old male 10/16/2024 3:40 PM [facility] Gross Description A(A). Pleural Cavity, Right, :A. Pleural Cavity, Right, , Pleural Fluid: Received 50 ml of hazy, yellow fluid, processed as 1 Pap stained Autocyte, 1 Lopez stained cytospin and one hematoxylin and eosin stained cell block. 10/16/2024 3:40 PM [facility] Microscopic Description Microscopic examination is performed with findings supportive of the diagnosis as noted. 10/16/2024 3:40 PM [facility] Performing Labs The technical component of this testing was completed at [facility]. Stain controls for all stains resulted within this report have been reviewed and show appropriate reactivity. 10/16/2024 3:40 PM [facility] Pleural fluid STRUCTURE OF RIGHT PLEURAL CAVITY / Unknown Non-blood Collection / Unknown 10/14/2024 11:08 AM DIRECTOR VIDEO 10/14/2024 11:19 AM [facility] Comment:Collect pleural flui d when Thoracentesis procedure performed Specimen must be collected in a Sterile - Plastic Leak proof lab container. Ortiz Chew MD LAB - BEAKER AP Final Result LABORATORY [facility] Lab [address] 1st floor, [address] [place] [address], [place] [phone] SPECIALTY LABS Specialty Lab [address] [facility], [address] [place] [address], [facility] * Protein fluid (10/14/2024 11:08 AM DIRECTOR VIDEO) Protein Fluid Source Pleural Cavity, Right 10/14/2024 12:01 PM [facility] Protein Total Fluid 3.0 g/dL 10/14/2024 12:01 PM [facility] Other STRUCTURE OF RIGHT PLEURAL CAVITY / Unknown Non-blood Collection / Unknown 10/14/2024 11:08 AM DIRECTOR VIDEO 10/14/2024 11:20 AM DIRECTOR VIDEO Narrative [facility] - 10/14/2024 12:01 PM DIRECTOR VIDEO No reference ranges have been established. This [...] FLUIDS ORDERABLES Final Result Performing Organization Address City/[facility]/ZIP Co de Phone Number [facility] [address] Lab (1st floor, no room number) [place] [phone] * Lactate dehydrogenase fluid (10/14/2024 11:08 AM DIRECTOR VIDEO) LD Fluid Source Pleural Cavity, Right 10/14/2024 12:01 PM DIRECTOR VIDEO LABORATORY Lactate dehydrogenase fluid 904 U/L 10/14/2024 12:01 PM DIRECTOR VIDEO LABORATORY Other STRUCTURE OF RIGHT PLEURAL CAVITY / Unknown Non-blood Collection / Unknown 10/14/2024 11:08 AM DIRECTOR VIDEO 10/14/2024 11:20 AM DIRECTOR VIDEO Narrative [facility] - 10/14/2024 12:01 PM DIRECTOR VIDEO No reference ranges have been established. This [...] FLUIDS ORDERABLES Final Result Performing Organization Address City/[facility]/ZIP Co de Phone Number [facility] [address] Lab (1st floor, no room number) [place] [address] * Glucose fluid (10/14/2024 11:08 AM DIRECTOR VIDEO) Glucose Fluid Source Pleural Cavity, Right 10/14/2024 12:01 PM DIRECTOR VIDEO [facility] Glucose fluid 205 mg/dL 10/14/2024 12:01 PM DIRECTOR VIDEO [facility] Other STRUCTURE OF RIGHT PLEURAL CAVITY / Unknown Non-blood Collection / Unknown 10/14/2024 11:08 AM DIRECTOR VIDEO 10/14/2024 11:20 AM DIRECTOR VIDEO Narrative [facility] - 10/14/2024 12:01 PM DIRECTOR VIDEO No reference ranges have been established. This result should be interpreted in the context of the patient's clinical condition and compared to simultaneous measurement in the patient's blood. This is a lab developed test. It has not been cleared or approved by the FDA. FDA clearance is not required for clinical use. Ortiz Chew MD LAB - BODY FLUIDS ORDERABLES Final Result [facility] [address] [facility] Lab (1st floor, no room number) [place] [address], [facility] * Pleural fluid Aerobic Bacterial Culture Routine With Gram Stain (10/14/2024 11:08 AM DIRECTOR VIDEO) Culture No Growth 10/19/2024 7:17 AM DIRECTOR VIDEO [facility] Gram Stain Result No organisms seen 10/19/2024 7:17 AM DIRECTOR VIDEO [facility] Gram Stain Result 4+ WBC seen 10/19/2024 7:17 AM DIRECTOR VIDEO [facility] Pleural fluid RIGHT LUNG STRUCTURE / Unknown Non-blood Collection / Unknown 10/14/2024 11:08 AM DIRECTOR VIDEO 10/14/2024 11:35 AM DIRECTOR VIDEO Narrative [facility] - 10/19/2024 7:17 AM DIRECTOR VIDEO Gram Stain quantification of host cells and microbiological organisms was done on a cytocentrifuged preparation. Ortiz Chew MD LAB - MICRO GENERAL ORDERABLE S Final Result [facility] Inf. Diseases Diag. Lab [address] [facility], [address] [place] [address], [facility] * (ABNORMAL) Hepatic panel (10/14/2024 10:24 AM DIRECTOR VIDEO) Protein Total 5.8(L) 6.4 - 8.3 g/dL 10/14/2024 12:49 PM DIRECTOR VIDEO [facility] Albumin 2.9(L) 3.5 - 5.2 g/dL 10/14/2024 12:49 PM DIRECTOR VIDEO [facility] Bilirubin Total 0.4 <=1.2 mg/dL 10/14/2024 12:49 PM DIRECTOR VIDEO [facility] Alkaline Phosphatase 108 40 - 150 U/L 10/14/2024 12:49 PM DIRECTOR VIDEO [facility] AST 17 0 - 45 U/L 10/14/2024 12:49 PM DIRECTOR VIDEO [facility] ALT 20 0 - 70 U/L 10/14/2024 12:49 PM DIRECTOR VIDEO [facility] Bilirubin Direct 0.18 0.00 - 0.30 mg/dL 10/14/2024 12:49 PM DIRECTOR VIDEO LABORATORY Blood STRUCTURE OF LEFT HAND / Unknown Venipuncture / Unknown 10/14/2024 10:24 AM DIRECTOR VIDEO 10/14/2024 10:34 AM DIRECTOR VIDEO Ortiz Chew MD LAB - BLOOD ORDERABLES Final Result [facility] [address] Lab (1st floor, no room number) [place] [phone] [place] [address] * (ABNORMAL) Protein total (10/14/2024 10:24 AM DIRECTOR VIDEO) Protein Total 5.8(L) 6.4 - 8.3 g/dL 10/14/2024 11:08 AM DIRECTOR VIDEO LABORATORY Blood STRUCTURE OF LEFT HAND / Unknown Venipuncture / Unknown 10/14/2024 10:24 AM DIRECTOR VIDEO 10/14/2024 10:34 AM DIRECTOR VIDEO Ortiz Chew MD LAB - BLOOD ORDERABLES Final Result [facility] [address] (1st [address], no room number) [place] [phone] * Lactate Dehydrogenase (10/14/2024 10:24 AM DIRECTOR VIDEO) Lactate Dehydrogenase 165 0 - 250 U/L 10/14/2024 11:08 AM DIRECTOR VIDEO LABORATORY Blood STRUCTURE OF LEFT HAND / Unknown Venipuncture / Unknown 10/14/2024 10:24 AM DIRECTOR VIDEO 10/14/2024 10:34 AM DIRECTOR VIDEO Ortiz Chew MD LAB - BLOOD ORDERABLES Final Result LABORATORY [facility] [address] Lab (1st floor, no room number) [place] [address], [facility] * (ABNORMAL) Glucose by meter (10/14/2024 8:16 AM DIRECTOR VIDEO) GLUCOSE BY METER POCT 293(H) 70 - 99 mg/dL 10/15/2024 6:01 PM DIRECTOR VIDEO LABORATORY POC Blood, Capillary BLOOD SPECIMEN / Unknown 10/14/2024 8:16 AM DIRECTOR VIDEO 10/15/2024 6:01 PM DIRECTOR VIDEO Arielle Martel DO LAB - BEAKER POCT Final Re sult LABORATORY POC [facility] [address] Lab (1st floor, no room number) [place] [phone], [facility] * (ABNORMAL) CBC with platelets and differential (10/14/2024 6:06 AM DIRECTOR VIDEO) WBC Count 13.5(H) 4.0 - 11.0 10e3/uL 10/14/2024 6:18 AM DIRECTOR VIDEO [facility] RBC Count 4.42 4.40 - 5.90 10e6/uL 10/14/2024 6:18 AM DIRECTOR VIDEO [facility] Hemoglobin 13.4 13.3 - 17.7 g/dL 10/14/2024 6:18 AM DIRECTOR VIDEO [facility] Hematocrit 38.2(L) 40.0 - 53.0 % 10/14/2024 6:18 AM DIRECTOR VIDEO [facility] MCV 86 78 - 100 fL 10/14/2024 6:18 AM [facility] LABORATORY MCH 30.3 26.5 - 33.0 pg 10/14/2024 6:18 AM [facility] LABORATORY MCHC 35.1 31.5 - 36.5 g/dL 10/14/2024 6:18 AM [facility] LABORATORY RDW 11.8 10.0 - 15.0 % 10/14/2024 6:18 AM [facility] LABORATORY Platelet Count 196 150 - 450 10e3/uL 10/14/2024 6:18 AM [facility] LABORATORY % Neutrophils 84 % 10/14/2024 6:18 AM [facility] LABORATORY % Lymphocytes 7 % 10/14/2024 6:18 AM [facility] LABORATORY % Monocytes 8 % 10/14/2024 6:18 AM [facility] LABORATORY % Eosinophils 1 % 10/14/2024 6:18 AM [facility] LABORATORY % Basophils 0 % 10/14/2024 6:18 AM [facility] LABORATORY % Immature Granulocytes 0 % 10/14/2024 6:18 AM [facility] LABORATORY NRBCs per 100 WBC 0 <1 /100 025 6:18 AM [facility] LABORATORY Absolute Neutrophils 11.4(H) 1.6 - 8.3 10e3/uL 10/14/2024 6:18 AM [facility] LABORATORY Absolute Lymphocytes 0.9 0.8 - 5.3 10e3/uL 10/14/2024 6:18 AM [facility] LABORATORY Absolute Monocytes 1.0 0.0 - 1.3 10e3/uL 10/14/2024 6:18 AM [facility] LABORATORY Absolute Eosinophils 0.1 0.0 - 0.7 10e3/uL 10/14/2024 6:18 AM [facility] LABORATORY Absolute Basophils 0.0 0.0 - 0.2 10e3/uL 10/14/2024 6:18 AM [facility] LABORATORY Absolute Immature Granulocytes 0.1 <=0.4 10e3/uL 10/14/2024 6:18 AM [facility] LABORATORY Absolute NRBCs 0.0 10e3/uL 10/14/2024 6:18 AM [facility] LABORATORY Blood STRUCTURE OF LEFT HAND / Unknown Venipuncture / Unknown 10/14/2024 6:06 AM DIRECTOR VIDEO 10/14/2024 6:15 AM DIRECTOR VIDEO Tiarra Smalls PA-C LAB - BLOOD ORDERABLES F inal Result LABORATORY [facility] [address] Lab (1st floor, no room number) [place] [address], [facility] * (ABNORMAL) Basic metabolic panel (10/14/2024 6:06 AM DIRECTOR VIDEO) Sodium 129(L) 135 - 145 mmol/L 10/14/2024 6:58 AM [facility] LABORATORY Potassium 4.8 3.4 - 5.3 mmol/L 10/14/2024 6:58 AM [facility] LABORATORY Chloride 92(L) 98 - 107 mmol/L 10/14/2024 6:58 AM [facility] LABORATORY Carbon Dioxide (CO2) 19(L) 22 - 29 mmol/L 10/14/2024 6:58 AM [facility] LABORATORY Anion Gap 18(H) 7 - 15 mmol/L 10/14/2024 6:58 AM [facility] LABORATORY Urea Nitrogen 30.8(H) 8.0 - 23.0 mg/dL 10/14/2024 6:58 AM [facility] LABORATORY Creatinine 0.93 0.67 - 1.17 mg/dL 10/14/2024 6:58 AM [facility] LABORATORY GFR Estimate >90 >60 mL/min/1.7 3m2 10/14/2024 6:58 AM [facility] LABORATORY Comment:eGFR calculated usin 2020 CKD-EPI equation. Calcium 9.0 8.8 - 10.4 mg/dL 10/14/2024 6:58 AM [facility] LABORATORY Glucose 283(H) 70 - 99 mg/dL 10/14/2024 6:58 AM [facility] LABORATORY Blood STRUCTURE OF LEFT HAND / Unknown Venipuncture / Unknown 10/14/2024 6:06 AM DIRECTOR VIDEO 10/14/2024 6:15 AM [facility] Tiarra Smalls PA-C LAB - BLOOD ORDERABLES F inal Result LABORATORY [facility] Care Lab [address] Lab (1st floor, no room number) [address] * (ABNORMAL) Magnesium (10/14/2024 6:06 AM DIRECTOR VIDEO) Magnesium 2.4(H) 1.7 - 2.3 mg/dL 10/14/2024 6:55 AM DIRECTOR VIDEO LABORATORY Blood STRUCTURE OF LEFT HAND / Unknown Venipuncture / Unknown 10/14/2024 6:06 AM DIRECTOR VIDEO 10/14/2024 6:15 AM DIRECTOR VIDEO Result [facility] Tiarra TIJERINA-Kingsley LAB - BLOOD ORDERABLES F inal Result [facility] Lab [address] Lab (1st floor, no room number) [address] * Phosphorus (10/14/2024 6:06 AM DIRECTOR VIDEO) Phosphorus 3.6 2.5 - 4.5 mg/dL 10/14/2024 6:55 AM DIRECTOR VIDEO LABORATORY Blood STRUCTURE OF LEFT HAND / Unknown Venipuncture / Unknown 10/14/2024 6:06 AM DIRECTOR VIDEO 10/14/2024 6:15 AM DIRECTOR VIDEO Result [facility] Tiarra Smalls PA-C LAB - BLOOD ORDERABLES F inal Result [facility] Lab [address] Lab (1st floor, no room number) [address] * (ABNORMAL) Glucose by meter (10/14/2024 5:56 AM DIRECTOR VIDEO) GLUCOSE BY METER POCT 280(H) 70 - 99 mg/dL 10/14/2024 6:03 AM DIRECTOR VIDEO LABORATORY POC Blood, Capillary BLOOD SPECIMEN / Unknown 10/14/2024 5:56 AM DIRECTOR VIDEO 10/14/2024 6:03 AM DIRECTOR VIDEO Arielle Martel DO LAB - BEAKER POCT Final Re sult RH LABORATORY [facility] Acute Care Lab [address] [facility] Lab (1st floor, no room number) [place] [address], [facility] * XR Chest Port 1 View (10/14/2024 3:39 AM DIRECTOR VIDEO) Anatomical Region Laterality Modality Chest Digital Radiogra phy 10/14/2024 3:39 AM DIRECTOR VIDEO Impressions 10/14/2024 3:48 AM DIRECTOR VIDEO IMPRESSION: Enlarging now moderate right pleural effusion. Bibasilar patchy consolidations right greater than left, similar and again favoring multifocal pneumonia. Prior median sternotomy and cardiac valvular prosthesis. Stable enlarged heart. A component of pulmonary vascular congestion/interstitial edema may also be present. No pneumothorax. No acute osseous abnormality. Narrative 10/14/2024 3:48 AM DIRECTOR VIDEO EXAM: XR CHEST PORT 1 VIEW LOCATION: [facility] DATE: 10/14/2024 INDICATION: worsening hypoxia. previous xray history concerning for aspiration COMPARISON: PE chest CT with abdomen/pelvis with contrast 10/12/2024 Procedure Note Brett Mathis MD - 10/14/2024 EXAM: XR CHEST PORT 1 VIEW LOCATION: [facility] DATE: 10/14/2024 INDICATION: worsening hypoxia. previous xray history concerning foraspiration COMPARISON: PE chest CT with abdomen/pelvis with contrast 10/12/2024 IMPRESSION: Enlarging now moderate right pleural effusion. Bibasilarpatchy consolidations right greater than left, similar and again favoringmultifocal pneumonia. Prior median sternotomy and cardiac valvularprosthesis. Stable enlarged heart. A component of pulmonary vascular congestion/interstitial edema may also bepresent. No pneumothorax. No acute osseous abnormality. us Horacio Galan MD IMG DIAGNOSTIC IMAGING O RDERABLES Final Result * (ABNORMAL) Glucose by meter (10/14/2024 2:10 AM DIRECTOR VIDEO) GLUCOSE BY METER POCT 323(H) 70 - 99 mg/dL 10/14/2024 2:17 AM DIRECTOR VIDEO LABORATORY POC Blood, Capillary BLOOD SPECIMEN / Unknown 10/14/2024 2:10 AM DIRECTOR VIDEO 10/14/2024 2:17 AM DIRECTOR VIDEO Arielleemile Martel LAB - BEAKER POCT Final Re sult LABORATORY [facility] Care Lab [address] Lab (1st floor, no room number) [place] [address], [facility] * (ABNORMAL) Glucose by meter (10/14/2024 2:05 AM DIRECTOR VIDEO) GLUCOSE BY METER POCT 339(H) 70 - 99 mg/dL 10/14/2024 2:11 AM DIRECTOR VIDEO LABORATORY POC Blood, Capillary BLOOD SPECIMEN / Unknown 10/14/2024 2:05 AM DIRECTOR VIDEO 10/14/2024 2:11 AM DIRECTOR VIDEO Arielleemile Martel DO LAB - BEAKER POCT Final Re sult Performing Organization Address [facility]/ZIP Co de Phone Number LABORATORY [facility] Lab [address] Lab (1st floor, no room number) [place] [address], [facility] * (ABNORMAL) Glucose by meter (10/13/2024 11:56 PM DIRECTOR VIDEO) GLUCOSE BY METER POCT 349(H) 70 - 99 mg/dL 10/14/2024 12:02 AM DIRECTOR VIDEO LABORATORY POC Blood, Capillary BLOOD SPECIMEN / Unknown 10/13/2024 11:56 PM DIRECTOR VIDEO 10/14/2024 12:02 AM DIRECTOR VIDEO Arielle Estevanlatoyaabhijeet LAB - BEAKER POCT Final Re sult LABORATORY [facility] Lab [address] Lab (1st floor, no room number) [place] [address], [facility] * (ABNORMAL) Glucose by meter (10/13/2024 8:47 PM DIRECTOR VIDEO) GLUCOSE BY METER POCT 377(H) 70 - 99 mg/dL 10/13/2024 9:24 PM DIRECTOR VIDEO LABORATORY POC Blood, Capillary BLOOD SPECIMEN / Unknown 10/13/2024 8:47 PM DIRECTOR VIDEO 10/13/2024 9:24 PM DIRECTOR VIDEO Arielle Martel DO LAB - BEAKER POCT Final Re sult Performing Organization Address City/[facility]/ZIP Co de Phone Number LABORATORY [facility] Lab [address] Lab (1st floor, no room number) [place] [address] * (ABNORMAL) Sodium (10/13/2024 7:55 PM DIRECTOR VIDEO) Sodium 126(L) 135 - 145 mmol/L 10/13/2024 8:30 PM DIRECTOR VIDEO LABORATORY Blood STRUCTURE OF LEFT HAND / Unknown Venipuncture / Unknown 10/13/2024 7:55 PM DIRECTOR VIDEO 10/13/2024 8:03 PM DIRECTOR VIDEO Tiarra Smalls PA-C LAB - BLOOD ORDERABLES F inal Result Performing Organization Address [facility] de Phone Number [facility] Lab [address] Lab (1st floor, no room number) [place] [address] * Sodium random urine (10/13/2024 6:45 PM DIRECTOR VIDEO) Sodium Urine mmol/L <20 mmol/L 10/13/2024 7:29 PM DIRECTOR VIDEO LABORATORY Comment:The reference ranges have not been established in urine sodium. The results should be integrated into the clinical context for interpretation. Urine MID-STREAM URINE SPECIMEN / Unknown Non-blood Collection / Unknown 10/13/2024 6:45 PM DIRECTOR VIDEO 10/13/2024 6:52 PM DIRECTOR VIDEO Tiarra TIJERINA-C LAB - URINE ORDERABLES F inal Result LABORATORY [facility] Lab [address] Lab (1st floor, no room number) [place] [address], [facility] * Osmolality urine (10/13/2024 6:45 PM DIRECTOR VIDEO) Osmolality Urine 715 100 - 1,200 mmol/kg 10/13/2024 10:26 PM DIRECTOR VIDEO [facility] LABORATORY Urine MID-STREAM URINE SPECIMEN / Unknown Non-blood Collection / Unknown 10/13/2024 6:45 PM DIRECTOR VIDEO 10/13/2024 6:52 PM DIRECTOR VIDEO Narrative [facility] LABORATORY - 10/13/2024 10:26 PM DIRECTOR VIDEO Reference Ranges depend on patient's hydration status and renal function. Neonates: 75-300 mmol/kg 2 years and older, random specimens: 100-1200 mmol/kg; Greater than 850 mmol/kg after 12 hour fluid restriction Urine/serum osmolality ratio: 2 years and older: 1.0-3.0; 3.0-4.7 after 12 hour fluid restriction us Tiarra Smalls PA-C LAB - URINE ORDERABLES F inal Result Performing Organization Address [facility]/ZIP Co de Phone Number U LABORATORY [facility] [place] [facility] [address], [address] [place] [address] * (ABNORMAL) Glucose by meter (10/13/2024 5:44 PM DIRECTOR VIDEO) GLUCOSE BY METER POCT 383(H) 70 - 99 mg/dL 10/13/2024 5:50 PM DIRECTOR VIDEO LABORATORY POC Blood, Capillary BLOOD SPECIMEN / Unknown 10/13/2024 5:44 PM DIRECTOR VIDEO 10/13/2024 5:50 PM DIRECTOR VIDEO us Arielle Martel DO LAB - BEAKER POCT Final Re sult LABORATORY POC [facility] Lab [address] Lab (1st floor, no room number) [place] [address], [place] * (ABNORMAL) Glucose by meter (10/13/2024 11:41 AM DIRECTOR VIDEO) GLUCOSE BY METER POCT 312(H) 70 - 99 mg/dL 10/13/2024 11:47 AM DIRECTOR VIDEO LABORATORY POC Blood, Capillary BLOOD SPECIMEN / Unknown 10/13/2024 11:41 AM DIRECTOR VIDEO 10/13/2024 11:47 AM DIRECTOR VIDEO Arielle Martel DO LAB - BEAKER POCT Final Re sult LABORATORY [facility] Lab [address] [facility] Lab (1st floor, no room number) [place] [phone] [place] [address] * (ABNORMAL) Glucose by meter (10/13/2024 8:40 AM DIRECTOR VIDEO) GLUCOSE BY METER POCT 310(H) 70 - 99 mg/dL 10/13/2024 8:46 AM DIRECTOR VIDEO LABORATORY POC Comment:Dr/RN Notified Blood, Capillary BLOOD SPECIMEN / Unknown 10/13/2024 8:40 AM DIRECTOR VIDEO 10/13/2024 8:46 AM DIRECTOR VIDEO Arielle Delonte LAB - BEAKER POCT Final Re sult Performing Organization Address [facility]/ZIP Co de Phone Number LABORATORY [facility] Lab [address] Lab (1st floor, no room number) [place] [phone] [place] [address] * Osmolality (10/13/2024 7:01 AM DIRECTOR VIDEO) Osmolality Blood 290 280 - 301 mmol/kg 10/13/2024 10:15 PM DIRECTOR VIDEO [facility] LABORATORY Blood STRUCTURE OF LEFT HAND / Unknown Venipuncture / Unknown 10/13/2024 7:01 AM DIRECTOR VIDEO 10/13/2024 7:07 AM DIRECTOR VIDEO Narrative [facility] LABORATORY - 10/13/2024 10:15 PM DIRECTOR VIDEO Greater than 385 mmol/kg relates to stupor in hyperglycemia Greater than 400 mmol/kg can relate to seizures Greater than 420 mmol/kg can be lethal Serum Osmalar Gap: Normal <10 Larger suggest unmeasured substances present in serum (ethanol, methanol, isopropanol, mannitol, ethylene glycol). Tiarra Smalls PA-C LAB - BLOOD ORDERABLES F inal Result LABORATORY [facility] [place] [facility] [address] [facility] [address], [address] [place] [address] * Phosphorus (10/13/2024 7:01 AM DIRECTOR VIDEO) Phosphorus 3.6 2.5 - 4.5 mg/dL 10/13/2024 7:28 AM DIRECTOR VIDEO LABORATORY Blood STRUCTURE OF LEFT HAND / Unknown Venipuncture / Unknown 10/13/2024 7:01 AM DIRECTOR VIDEO 10/13/2024 7:07 AM DIRECTOR VIDEO Arielle Martel DO LAB - BLOOD ORDERABLES Fin al Result Performing Organization Address City/[facility]/ZIP Co de Phone Number [facility] Acute Care Lab [address] Lab (1st floor, no room number) [place] [address] * Magnesium (10/13/2024 7:01 AM DIRECTOR VIDEO) Magnesium 2.1 1.7 - 2.3 mg/dL 10/13/2024 7:28 AM DIRECTOR VIDEO LABORATORY Blood STRUCTURE OF LEFT HAND / Unknown Venipuncture / Unknown 10/13/2024 7:01 AM DIRECTOR VIDEO 10/13/2024 7:07 AM DIRECTOR VIDEO Arielle Martel DO LAB - BLOOD ORDERABLES Fin al Result [facility] Lab [address] Lab (1st floor, no room number) [place] [address] * (ABNORMAL) CBC with platelets (10/13/2024 7:01 AM DIRECTOR VIDEO) WBC Count 13.4(H) 4.0 - 11.0 10e3/uL 10/13/2024 7:09 AM [facility] LABORATORY RBC Count 4.23(L) 4.40 - 5.90 10e6/uL 10/13/2024 7:09 AM [facility] LABORATORY Hemoglobin 12.7(L) 13.3 - 17.7 g/dL 10/13/2024 7:09 AM [facility] LABORATORY Hematocrit 36.9(L) 40.0 - 53.0 % 10/13/2024 7:09 AM [facility] LABORATORY MCV 87 78 - 100 fL 10/13/2024 7:09 AM [facility] LABORATORY MCH 30.0 26.5 - 33.0 pg 10/13/2024 7:09 AM [facility] LABORATORY MCHC 34.4 31.5 - 36.5 g/dL 10/13/2024 7:09 AM [facility] LABORATORY RDW 11.8 10.0 - 15.0 % 10/13/2024 7:09 AM [facility] LABORATORY Platelet Count 167 150 - 450 10e3/uL 10/13/2024 7:09 AM [facility] LABORATORY Blood STRUCTURE OF LEFT HAND / Unknown Venipuncture / Unknown 10/13/2024 7:01 AM DIRECTOR VIDEO 10/13/2024 7:07 AM [facility] us Arielle Martel DO LAB - BLOOD ORDERABLES Fin al Result LABORATORY [facility] Lab [address] [facility] Lab (1st floor, no room number) [place] [address], [facility] * (ABNORMAL) Comprehensive metabolic panel (10/13/2024 7:01 AM DIRECTOR VIDEO) Pathologist [facility] Sodium 126(L) 135 - 145 mmol/L 10/13/2024 7:28 AM [facility] LABORATORY Potassium 4.4 3.4 - 5.3 mmol/L 10/13/2024 7:28 AM [facility] LABORATORY Carbon Dioxide (CO2) 24 22 - 29 mmol/L 10/13/2024 7:28 AM [facility] LABORATORY Anion Gap 11 7 - 15 mmol/L 10/13/2024 7:28 AM [facility] LABORATORY Urea Nitrogen 24.7(H) 8.0 - 23.0 mg/dL 10/13/2024 7:28 AM [facility] LABORATORY Creatinine 0.80 0.67 - 1.17 mg/dL 10/13/2024 7:28 AM [facility] LABORATORY GFR Estimate >90 >60 mL/min/1.7 3m2 10/13/2024 7:28 AM [facility] LABORATORY Comment:eGFR calculated usin 2020 CKD-EPI equation. Calcium 8.9 8.8 - 10.4 mg/dL 10/13/2024 7:28 AM [facility] LABORATORY Chloride 91(L) 98 - 107 mmol/L 10/13/2024 7:28 AM [facility] LABORATORY Glucose 318(H) 70 - 99 mg/dL 10/13/2024 7:28 AM [facility] LABORATORY Alkaline Phosphatase 95 40 - 150 U/L 10/13/2024 7:28 AM [facility] LABORATORY AST 18 0 - 45 U/L 10/13/2024 7:28 AM [facility] LABORATORY ALT 20 0 - 70 U/L 10/13/2024 7:28 AM [facility] LABORATORY Protein Total 5.9(L) 6.4 - 8.3 g/dL 10/13/2024 7:28 AM [facility] LABORATORY Albumin 3.3(L) 3.5 - 5.2 g/dL 10/13/2024 7:28 AM [facility] LABORATORY Bilirubin Total 0.8 <=1.2 mg/dL 10/13/2024 7:28 AM [facility] LABORATORY Blood STRUCTURE OF LEFT HAND / Unknown Venipuncture / Unknown 10/13/2024 7:01 AM DIRECTOR VIDEO 10/13/2024 7:07 AM [facility] us Arielle Martel DO LAB - BLOOD ORDERABLES Fin al Result LABORATORY [facility] Lab [address] [facility] Lab (1st floor, no room number) [place] [address], [facility] * (ABNORMAL) Glucose by meter (10/13/2024 2:06 AM DIRECTOR VIDEO) [facility] GLUCOSE BY METER POCT 299(H) 70 - 99 mg/dL 10/13/2024 2:13 AM DIRECTOR VIDEO LABORATORY POC Blood, Capillary BLOOD SPECIMEN / Unknown 10/13/2024 2:06 AM DIRECTOR VIDEO 10/13/2024 2:13 AM DIRECTOR VIDEO Arielle Martel DO LAB - BEAKER POCT Final Re sult LABORATORY [facility] Care Lab [address] Lab (1st floor, no room number) [place] [address], [place] * (ABNORMAL) Glucose by meter (10/12/2024 9:34 PM DIRECTOR VIDEO) GLUCOSE BY METER POCT 304(H) 70 - 99 mg/dL 10/12/2024 9:41 PM DIRECTOR VIDEO LABORATORY POC Blood, Capillary BLOOD SPECIMEN / Unknown 10/12/2024 9:34 PM DIRECTOR VIDEO 10/12/2024 9:41 PM DIRECTOR VIDEO Arielle Delonte REYNOSO LAB - BEAKER POCT Final Re sult LABORATORY [facility] Lab [address] Lab (1st floor, no room number) [place] [address], [place] * (ABNORMAL) Glucose by meter (10/12/2024 8:19 PM DIRECTOR VIDEO) GLUCOSE BY METER POCT 300(H) 70 - 99 mg/dL 10/12/2024 8:25 PM DIRECTOR VIDEO LABORATORY POC Blood, Capillary BLOOD SPECIMEN / Unknown 10/12/2024 8:19 PM DIRECTOR VIDEO 10/12/2024 8:25 PM DIRECTOR VIDEO Airelle Delonte LAB - BEAKER POCT Final Re sult LABORATORY [facility] Lab [address] Lab (1st floor, no room number) [place] [address], [facility] * (ABNORMAL) Sodium (10/12/2024 8:02 PM DIRECTOR VIDEO) Sodium 127(L) 135 - 145 mmol/L 10/12/2024 8:34 PM DIRECTOR VIDEO LABORATORY Blood STRUCTURE OF LEFT UPPER LIMB / Unknown Venipuncture / Unknown 10/12/2024 8:02 PM DIRECTOR VIDEO 10/12/2024 8:05 PM DIRECTOR VIDEO Arielle Martel DO LAB - BLOOD ORDERABLES Fin al Result LABORATORY [facility] Lab [address] [facility] Lab (1st floor, no room number) [place] [address] * Legionella Urinary Antigen and Streptococcus pneumoniae antigen (10/12/2024 7:29 PM DIRECTOR VIDEO) Legionella pneumophila serogroup 1 urinary antigen Negative Negative YARIEL 10/13/2024 12:56 AM DIRECTOR VIDEO [facility] Comment:A negative result do es not exclude the possibility of a Legionella infection, as it can be caused by other serogroups and species of Legionella. Streptococcus pneumoniae antigen Negative Negative YARIEL 10/13/2024 12:56 AM DIRECTOR VIDEO [facility] Comment:A negative result do es not exclude a Streptococcus pneumoniae infection. Legionella pneumophila Urinary/Strep pneumoniae Antigen Specimen Type Urine 10/13/2024 12:56 AM DIRECTOR VIDEO [facility] Urine URINE SPECIMEN OBTAINED BY CLEAN CATCH PROCEDURE / Unknown Non-blood Collection / Unknown 10/12/2024 7:29 PM DIRECTOR VIDEO 10/12/2024 7:36 PM DIRECTOR VIDEO Narrative [facility] - 10/13/2024 12:56 AM DIRECTOR VIDEO The result of this test as well [...] ORDERA BLES Final Result [facility] LABORAT[facility] Inf. Diseases Diag. Lab [address] [facility], [address] [place] [address], [facility] * (ABNORMAL) Glucose by meter (10/12/2024 5:08 PM DIRECTOR VIDEO) GLUCOSE BY METER POCT 138(H) 70 - 99 mg/dL 10/12/2024 5:14 PM DIRECTOR VIDEO LABORATORY POC Blood, Capillary BLOOD SPECIMEN / Unknown 10/12/2024 5:08 PM DIRECTOR VIDEO 10/12/2024 5:14 PM DIRECTOR VIDEO Arielle Martel DO LAB - BEAKER POCT Final Re sult LABORATORY POC [facility] Lab [address] Lab (1st floor, no room number) [place] [address], [facility] * (ABNORMAL) Sodium (10/12/2024 3:19 PM DIRECTOR VIDEO) Sodium 130(L) 135 - 145 mmol/L 10/12/2024 3:43 PM DIRECTOR VIDEO LABORATORY Blood STRUCTURE OF LEFT UPPER LIMB / Unknown Venipuncture / Unknown 10/12/2024 3:19 PM DIRECTOR VIDEO 10/12/2024 3:24 PM DIRECTOR VIDEO Arielle Martel DO LAB - BLOOD ORDERABLES Fin al Result LABORATORY [facility] [address] Lab (1st floor, no room number) [place] [address], [facility] * Troponin T, High Sensitivity (10/12/2024 2:16 PM DIRECTOR VIDEO) Troponin T, High Sensitivity 14 <=22 ng/L 10/12/2024 2:42 PM DIRECTOR VIDEO LABORATORY Comment: Either a High Sensitivity Troponin [...] Unknown Venipuncture / Unknown 10/12/2024 2:16 PM DIRECTOR VIDEO 10/12/2024 2:20 PM DIRECTOR VIDEO Wilber Ndiaye MD LAB - BLOOD ORDERABLES Final Res ult LABORATORY [facility] Lab [address] [facility] (1st floor, no room number) [place] [address], [facility] * (ABNORMAL) UA with Microscopic (10/12/2024 1:50 PM DIRECTOR VIDEO) Color Urine Yellow Colorless, Straw, Light Yellow, Yellow 10/12/2024 2:10 PM DIRECTOR VIDEO LABORATORY Appearance Urine Clear Clear 10/12/19 25 2:10 PM DIRECTOR VIDEO LABORATORY Glucose Urine 150(A) Negative mg/dL 10/12/2024 2:10 PM DIRECTOR VIDEO LABORATORY Bilirubin Urine Negative Negative 2:10 PM DIRECTOR VIDEO LABORATORY Ketones Urine Trace(A) Negative mg/dL 10/12/2024 2:10 PM DIRECTOR VIDEO LABORATORY Specific [place] Urine 1.010 1.003 - 1.035 10/12/2024 2:10 PM DIRECTOR VIDEO LABORATORY Blood Urine Negative Negative 10/12/2024 2:10 PM DIRECTOR VIDEO LABORATORY pH Urine 6.0 5.0 - 7.0 10/12/2024 2:10 PM DIRECTOR VIDEO LABORATORY Protein Albumin Urine 30(A) Negative mg/dL 10/12/2024 2:10 PM DIRECTOR VIDEO LABORATORY Urobilinogen Urine Normal Normal, 2.0 mg/dL 10/12/2024 2:10 PM DIRECTOR VIDEO LABORATORY Nitrite Urine Negative Negative 10/12/2024 2:10 PM DIRECTOR VIDEO [facility] LABORATORY Leukocyte Esterase Urine Negative Negative 10/12/2024 2:10 PM DIRECTOR VIDEO [facility] LABORATORY Mucus Urine Present(A) None Seen /LPF 10/12/2024 2:10 PM DIRECTOR VIDEO [facility] RBC Urine 1 <=2 /HPF 10/12/2024 2:10 PM DIRECTOR VIDEO [facility] WBC Urine 4 <=5 /HPF 10/12/2024 2:10 PM DIRECTOR VIDEO [facility] Squamous Epithelials Urine <1 <=1 /HPF 10/12/2024 2:10 PM DIRECTOR VIDEO [facility] Urine MID-STREAM URINE SPECIMEN / Unknown Non-blood Collection / Unknown 10/12/2024 1:50 PM DIRECTOR VIDEO 10/12/2024 1:57 PM DIRECTOR VIDEO us Wilber Ndiaye MD LAB - URINE ORDERABLES Final Res ult [facility] [address] Lab (1st floor, no room number) [place] [address] * CT Chest (PE) Abdomen Pelvis w Contrast (10/12/2024 12:19 PM DIRECTOR VIDEO) Anatomical Region Laterality Modality Chest, SUBRAD CT BODY, UMP CT CHEST, RAD CT Computed Tomography 10/12/2024 12:1 9 PM DIRECTOR VIDEO Impressions 10/12/2024 2:10 PM DIRECTOR VIDEO IMPRESSION: 1. No pulmonary embolism. 2. Large consolidation at the right lung base with bilateral patchy airspace opacity within the lower lobes concerning for pneumonia. 3. Multiple low-attenuation lesions are noted within the liver which are indeterminant although cyst or metastatic disease. Further workup is suggested. Narrative 10/12/2024 2:10 PM DIRECTOR VIDEO EXAM: CT CHEST PE ABDOMEN PELVIS W CONTRAST LOCATION: [facility] DATE: 10/12/2024 INDICATION: Right inferior [...] CHEST PE ABDOMEN PELVIS W CONTRAST LOCATION: [facility] DATE: 10/12/2024 INDICATION: Right inferior [...] disease. Further workup issuggested. Wilber Ndiaye MD [facility] [place]LES Final Result * CT Head w/o Contrast (10/12/2024 12:11 PM DIRECTOR VIDEO) Anatomical Region Laterality Modality Head, SUBRAD CT NEURO, SUBRA D CT NEURO, UMP CT NEURO, RAD CT Computed Tomography 10/12/2024 12:1 1 PM DIRECTOR VIDEO Impressions 10/12/2024 1:27 PM DIRECTOR VIDEO IMPRESSION: 1. No intracranial hemorrhage, mass lesions, hydrocephalus or CT evidence for an acute infarct. 2. Mild diffuse cerebral parenchymal volume loss. Presumed chronic hypertensive/microvascular ischemic white matter changes. 3. Moderate area of encephalomalacia involving the anterior parasagittal right frontal lobe. There is associated mild ex vacuo dilatation of the anterior horn of the right lateral ventricle. Small focus of encephalomalacia involving the anterior parasagittal left frontal lobe. Small chronic infarct in the left cingulate gyrus. Narrative 10/12/2024 1:27 PM DIRECTOR VIDEO EXAM: CT HEAD W/O CONTRAST LOCATION: [facility] DATE: 10/12/2024 INDICATION: Fall, on eliquis, eval for ICH COMPARISON: Head CT 03/10/2022 TECHNIQUE: Routine CT Head without IV contrast. Multiplanar reformats. Dose reduction techniques were used. FINDINGS: INTRACRANIAL CONTENTS: No intracranial hemorrhage. Mild diffuse cerebral parenchymal volume loss. No midline shift. The basilar cisterns are patent. Moderate area of encephalomalacia involving the anterior parasagittal right frontal lobe. There is associated mild ex vacuo dilatation of the anterior horn of the right lateral ventricle. Small focus of encephalomalacia involving the anterior parasagittal left frontal lobe. Small chronic infarct in the left cingulate gyrus. Mild periventricular and scattered foci of deep white matter hypodensities involving both cerebral hemispheres. No CT evidence for an acute infarct. VISUALIZED ORBITS/SINUSES/MASTOIDS: No intraorbital abnormality. Mild mucosal thickening of the ethmoid air cells. No middle ear or mastoid effusion. BONES/SOFT TISSUES: Right frontal craniotomy changes. Procedure Note Thad Kellogg MD - 10/12/2024 EXAM: CT HEAD W/O CONTRAST LOCATION: [facility] DATE: 10/12/2024 INDICATION: Fall, on eliquis, eval for ICH COMPARISON: Head CT 03/10/2022 TECHNIQUE: Routine CT Head without IV contrast. Multiplanar reformats.Dose reduction techniques were used. FINDINGS: INTRACRANIAL CONTENTS: No intracranial hemorrhage. Mild diffuse cerebralparenchymal volume loss. No midline shift. The basilar cisterns arepatent. Moderate area of encephalomalacia involving the anteriorparasagittal right frontal lobe. There is associated mild ex vacuo dilatation of the anterior horn of the rightlateral ventricle. Small focus of encephalomalacia involving the anteriorparasagittal left frontal lobe. Small chronic infarct in the leftcingulate gyrus. Mild periventricular and scattered foci of deep white matter hypodensities involving both cerebralhemispheres. No CT evidence for an acute infarct. VISUALIZED ORBITS/SINUSES/MASTOIDS: No intraorbital abnormality. Mildmucosal thickening of the ethmoid air cells. No middle ear or mastoideffusion. BONES/SOFT TISSUES: Right frontal craniotomy changes. IMPRESSION: 1. No intracranial hemorrhage, mass lesions, hydrocephalus or CT evidencefor an acute infarct. 2. Mild diffuse cerebral parenchymal volume loss. Presumed chronichypertensive/microvascular ischemic white matter changes. 3. Moderate area of encephalomalacia involving the anterior parasagittalright frontal lobe. There is associated mild ex vacuo dilatation of theanterior horn of the right lateral ventricle. Small focus ofencephalomalacia involving the anterior parasagittal left frontal lobe. Small chronic infarct in the leftcingulate gyrus. Wilber Ndiaye MD IMG CT ORDERABLES Final Result * Blood Culture Arm, Left (10/12/2024 11:28 AM DIRECTOR VIDEO) Culture No Growth 10/17/2024 3:32 PM DIRECTOR VIDEO [facility] Blood STRUCTURE OF LEFT UPPER LIMB / Unknown Venipuncture / Unknown 10/12/2024 11:28 AM DIRECTOR VIDEO 10/12/2024 11:32 AM DIRECTOR VIDEO Wilber Ndiaye MD LAB - MICRO GENERAL ORDERABLES F inal Result [facility] Inf. Diseases Diag. Lab [address] [facility], Room [address] [place], [place] [id number] * EKG 12 lead (10/12/2024 11:02 AM DIRECTOR VIDEO) Systolic Blood Pressure mmHg RADIOLOGY RESULTS Diastolic Blood Pressure mmHg RADIOLOGY RESULTS Ventricular Rate 88 BPM RAD IOLOGY RESULTS Atrial Rate 88 BPM RADIOLOG Y RESULTS OH Interval 154 ms RADIOLOG Y RESULTS QRS Duration 100 ms RADIOLO GY RESULTS QT 348 ms RADIOLOGY RESULTS QTc 421 ms RADIOLOGY RESULTS P [place] 53 degrees RADIOLOGY RESULTS R AXIS 13 degrees RADIOLOGY RESULTS T [place] 49 degrees RADIOLOGY RESULTS Interpretation ECG Sinus rhythm Normal ECG When compared with ECG of 24-May-2024 11:19, Vent. rate has increased by 35 bpm Confirmed by - EMERGENCY ROOM, PHYSICIAN ([id number]), development editor ROMY GILMAN ([id number]) on 10/13/2024 6:49:33 AM RADIOLOGY RESULTS 10/12/2024 11:0 2 AM DIRECTOR VIDEO 10/13/2024 6:49 AM DIRECTOR VIDEO us Wilber Ndiaye MD ECG ORDERABLES Edited Result - Final RADIOLOGY RESULTS * Creatinine POCT (10/12/2024 11:00 AM DIRECTOR VIDEO) Creatinine POCT 1.1 0.7 - 1.3 mg/dL 10/12/2024 11:04 AM DIRECTOR VIDEO [facility] POC GFR, ESTIMATED POCT >60 >60 mL/min/1.7 3m2 10/12/2024 11:04 AM DIRECTOR VIDEO [facility] POC Blood, venous BLOOD SPECIMEN / Unknown 10/12/2024 11:00 AM DIRECTOR VIDEO 10/12/2024 11:04 AM DIRECTOR VIDEO us Wilber Ndiaye MD LAB - BEAKER POCT Final Result [facility] POC [facility] [address] [facility] Lab (1st floor, no room number) [place] [address] * (ABNORMAL) iStat Gases (lactate) venous, POCT (10/12/2024 10:59 AM DIRECTOR VIDEO) Lactic Acid POCT 1.1 <=2.0 mmol/L 10/12/2024 11:03 AM DIRECTOR VIDEO [facility] POC Bicarbonate Venous POCT 31(H) 21 - 28 mmol/L 10/12/2024 11:03 AM DIRECTOR VIDEO [facility] POC O2 Sat, Venous POCT 56(L) 70 - 75 % 10/12/2024 11:03 AM DIRECTOR VIDEO [facility] POC pCO2 Venous POCT 49 40 - 50 mm Hg 10/12/2024 11:03 AM DIRECTOR VIDEO [facility] POC pH Venous POCT 7.40 7.32 - 7.43 10/12/2024 11:03 AM DIRECTOR VIDEO [facility] POC pO2 Venous POCT 30 25 - 47 mm Hg 10/12/2024 11:03 AM DIRECTOR VIDEO [facility] POC Blood, venous BLOOD SPECIMEN / Unknown 10/12/2024 10:59 AM DIRECTOR VIDEO 10/12/2024 11:03 AM DIRECTOR VIDEO us Wilber Ndiaye MD LAB - BEAKER POCT Final Result LABORATORY POC [facility] Lab [address] Lab (1st floor, no room number) [place] [address] * Extra Green Top (Pheba Heparin) Tube (10/12/2024 10:56 AM DIRECTOR VIDEO) Hold Specimen [facility] 10/12/2024 12:05 PM DIRECTOR VIDEO [facility] Blood STRUCTURE OF RIGHT UPPER LIMB / Unknown Venipuncture / Unknown 10/12/2024 10:56 AM DIRECTOR VIDEO 10/12/2024 11:02 AM DIRECTOR VIDEO us Wilber Ndiaye MD LAB - BLOOD ORDERABLES Final Res ult [facility] Lab [address] Lab (1st floor, no room number) [place] [address], [facility] * Extra Red Top Tube (10/12/2024 10:56 AM DIRECTOR VIDEO) Hold Specimen [facility] 10/12/2024 12:05 PM DIRECTOR VIDEO [facility] Blood STRUCTURE OF RIGHT UPPER LIMB / Unknown Venipuncture / Unknown 10/12/2024 10:56 AM DIRECTOR VIDEO 10/12/2024 11:02 AM DIRECTOR VIDEO us Wilber Ndiaye MD LAB - BLOOD ORDERABLES Final Res ult [facility] Lab [address] Lab (1st floor, no room number) [place] [address], [facility] * Extra Blue Top Tube (10/12/2024 10:56 AM DIRECTOR VIDEO) Hold Specimen [facility] 10/12/2024 12:05 PM DIRECTOR VIDEO [facility] Blood STRUCTURE OF RIGHT UPPER LIMB / Unknown Venipuncture / Unknown 10/12/2024 10:56 AM DIRECTOR VIDEO 10/12/2024 11:02 AM DIRECTOR VIDEO us Wilber Ndiaye MD LAB - BLOOD ORDERABLES Final Res ult [facility] LAB[facility]ATORY [facility] [address] Lab (1st floor, no room number) [place] [address] * (ABNORMAL) CBC with platelets and differential (10/12/2024 10:55 AM DIRECTOR VIDEO) WBC Count 14.4(H) 4.0 - 11.0 10e3/uL 10/12/2024 11:05 AM DIRECTOR VIDEO [facility] RBC Count 4.74 4.40 - 5.90 10e6/uL 10/12/2024 11:05 AM DIRECTOR VIDEO LABORATORY Hemoglobin 14.6 13.3 - 17.7 g/dL 10/12/2024 11:05 AM DIRECTOR VIDEO LABORATORY Hematocrit 40.9 40.0 - 53.0 % 10/12/2024 11:05 AM DIRECTOR VIDEO LABORATORY MCV 86 78 - 100 fL 10/12/2024 11:05 AM DIRECTOR VIDEO LABORATORY MCH 30.8 26.5 - 33.0 pg 10/12/2024 11:05 AM DIRECTOR VIDEO LABORATORY MCHC 35.7 31.5 - 36.5 g/dL 10/12/2024 11:05 AM DIRECTOR VIDEO LABORATORY RDW 11.5 10.0 - 15.0 % 10/12/2024 11:05 AM DIRECTOR VIDEO LABORATORY Platelet Count 180 150 - 450 10e3/uL 10/12/2024 11:05 AM DIRECTOR VIDEO LABORATORY % Neutrophils 86 % 10/12/2024 11:05 AM DIRECTOR VIDEO [facility] % Lymphocytes 5 % 10/12/2024 11:05 AM DIRECTOR VIDEO [facility] % Monocytes 8 % 10/12/2024 11:05 AM DIRECTOR VIDEO LABORATORY % Eosinophils 0 % 10/12/2024 11:05 AM DIRECTOR VIDEO [facility] % Basophils 0 % 10/12/2024 11:05 AM DIRECTOR VIDEO [facility] % Immature Granulocytes 1 % 10/12/2024 11:05 AM DIRECTOR VIDEO LABORATORY NRBCs per 100 WBC 0 <1 /100 025 11:05 AM DIRECTOR VIDEO LABORATORY Absolute Neutrophils 12.4(H) 1.6 - 8.3 10e3/uL 10/12/2024 11:05 AM DIRECTOR VIDEO LABORATORY Absolute Lymphocytes 0.7(L) 0.8 - 5.3 10e3/uL 10/12/2024 11:05 AM DIRECTOR VIDEO LABORATORY Absolute Monocytes 1.1 0.0 - 1.3 10e3/uL 10/12/2024 11:05 AM DIRECTOR VIDEO LABORATORY Absolute Eosinophils 0.0 0.0 - 0.7 10e3/uL 10/12/2024 11:05 AM DIRECTOR VIDEO LABORATORY Absolute Basophils 0.0 0.0 - 0.2 10e3/uL 10/12/2024 11:05 AM DIRECTOR VIDEO LABORATORY Absolute Immature Granulocytes 0.2 <=0.4 10e3/uL 10/12/2024 11:05 AM DIRECTOR VIDEO LABORATORY Absolute NRBCs 0.0 10e3/uL 10/12/2024 11:05 AM DIRECTOR VIDEO LABORATORY Blood BLOOD SPECIMEN / Unknown Venipuncture / Unknown 10/12/2024 10:55 AM DIRECTOR VIDEO 10/12/2024 11:02 AM DIRECTOR VIDEO us Wilber Ndiaye MD LAB - BLOOD ORDERABLES Final Res ult LABORATORY [facility] [address] [facility] Lab (1st floor, no room number) [place] [address], [facility] * Troponin T, High Sensitivity (10/12/2024 10:55 AM DIRECTOR VIDEO) Troponin T, High Sensitivity 15 <=22 ng/L 10/12/2024 11:24 AM DIRECTOR VIDEO LABORATORY Comment: Either a High Sensitivity Troponin [...] follow-up, or urgent outpatient provocative testing. Blood BLOOD SPECIMEN / Unknown Venipuncture / Unknown 10/12/2024 10:55 AM DIRECTOR VIDEO 10/12/2024 11:02 AM DIRECTOR VIDEO us Wilber Ndiaye MD LAB - BLOOD ORDERABLES Final Res ult LABORATORY [facility] [address] Lab (1st floor, no room number) [place] [address] * Blood Culture Peripheral Blood (10/12/2024 10:55 AM DIRECTOR VIDEO) Pathologist [facility] Culture No Growth 10/17/2024 1:46 PM DIRECTOR VIDEO [facility] Blood BLOOD SPECIMEN / Unknown Venipuncture / Unknown 10/12/2024 10:55 AM DIRECTOR VIDEO 10/12/2024 11:02 AM DIRECTOR VIDEO us Wilber Ndiaye MD LAB - MICRO GENERAL ORDERABLES F inal Result [facility] Inf. Diseases Diag. Lab [address] [facility], [address] [place] [address], [facility] * (ABNORMAL) Comprehensive metabolic panel (10/12/2024 10:55 AM DIRECTOR VIDEO) Sodium 126(L) 135 - 145 mmol/L 10/12/2024 11:24 AM DIRECTOR VIDEO LABORATORY Potassium 4.5 3.4 - 5.3 mmol/L 10/12/2024 11:24 AM DIRECTOR VIDEO LABORATORY Carbon Dioxide (CO2) 26 22 - 29 mmol/L 10/12/2024 11:24 AM DIRECTOR VIDEO LABORATORY Anion Gap 10 7 - 15 mmol/L 10/12/2024 11:24 AM DIRECTOR VIDEO LABORATORY Urea Nitrogen 22.1 8.0 - 23.0 mg/dL 10/12/2024 11:24 AM DIRECTOR VIDEO LABORATORY Creatinine 0.94 0.67 - 1.17 mg/dL 10/12/2024 11:24 AM DIRECTOR VIDEO LABORATORY GFR Estimate >90 >60 mL/min/1.7 3m2 10/12/2024 11:24 AM [facility] Comment:eGFR calculated usin 2020 CKD-EPI equation. Calcium 9.0 8.8 - 10.4 mg/dL 10/12/2024 11:24 AM [facility]ORY Chloride 90(L) 98 - 107 mmol/L 10/12/2024 11:24 AM [facility] Glucose 223(H) 70 - 99 mg/dL 10/12/2024 11:24 AM [facility] Alkaline Phosphatase 93 40 - 150 U/L 10/12/2024 11:24 AM [facility] AST 15 0 - 45 U/L 10/12/2024 11:24 AM [facility] ALT 22 0 - 70 U/L 10/12/2024 11:24 AM [facility] Protein Total 6.4 6.4 - 8.3 g/dL 10/12/2024 11:24 AM [facility] Albumin 3.9 3.5 - 5.2 g/dL 10/12/2024 11:24 AM [facility] Bilirubin Total 1.4(H) <=1.2 mg/dL 10/12/2024 11:24 AM [facility] LAB[facility]ORY Blood BLOOD SPECIMEN / Unknown Venipuncture / Unknown 10/12/2024 10:55 AM DIRECTOR VIDEO 10/12/2024 11:02 AM DIRECTOR VIDEO Wilber Ndiaye MD LAB - BLOOD ORDERABLES Final Res ult LABORATORY [facility] [address] Lab (1st floor, no room number) [place] [address], [facility] * Influenza A/B, RSV and SARS-CoV2 PCR (COVID-19) Nasopharyngeal (10/12/2024 10:39 AM DIRECTOR VIDEO) Influenza A PCR Negative Negative 10/12/2024 11:31 AM DIRECTOR VIDEO LABORATORY Influenza B PCR Negative Negative 10/12/2024 11:31 AM DIRECTOR VIDEO LABORATORY RSV PCR Negative Negative 10/12/2024 11:31 AM DIRECTOR VIDEO LABORATORY SARS CoV2 PCR Negative Negative 10/12/2024 11:31 AM DIRECTOR VIDEO LABORATORY Comment:NEGATIVE: SARS-CoV-2 (COVID-19) RNA not detected, presumed negative. Swab NASOPHARYNGEAL STRUCTURE / Unknown Non-blood Collection / Unknown 10/12/2024 10:39 AM DIRECTOR VIDEO 10/12/2024 10:49 AM DIRECTOR VIDEO Narrative LABORATORY - 10/12/2024 11:31 AM DIRECTOR VIDEO Testing was performed using the Xpert Xpress CoV2/Flu/RSV Assay on the [employer] GeneXpert Instrument. This test should be ordered [...] management. This test was validated by the [facility] [employer]. These laboratories are certified under the Clinical Laboratory Improvement Amendments of 1988 (CLIA-88) as qualified to perfom high complexity laboratory testing. Wilber Ndiaye MD LAB - MICRO GENERAL ORDERABLES F inal Result LABORATORY [facility] [address] [facility] Lab (1st floor, no room number) [place] [address] * EKG Cardiac - HIM Scan (10/12/2024 12:00 AM DIRECTOR VIDEO) 10/12/2024 us Provider Outside ECG ORDERABLES Final Result * EKG Cardiac - HIM Scan (10/12/2024 12:00 AM DIRECTOR VIDEO) 10/12/2024 us Provider Outside ECG ORDERABLES Final Result documented in this encounter Visit Diagnoses Diagnosis Pneumonia of both lower lobes due to infectious organism- Primary Hyponatremia Hyposmolality and/or hyponatremia Pneumonia of both lower lobes due to infectious organism Weakness generalized Other malaise and fatigue RUQ abdominal pain Abdominal pain, right upper quadrant Acute respiratory failure with hypoxia (H) Acute respiratory failure Fall, initial encounter Type 1 diabetes mellitus with hyperglycemia (H) Type I (juvenile type) diabetes mellitus without mention of complication, not stated as uncontrolled Paroxysmal atrial fibrillation (H) Atrial fibrillation Drug-induced constipation Other constipation 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 of right middle cerebral artery (H) Hyponatremia Hyposmolality and/or hyponatremia Weakness generalized Other malaise and fatigue RUQ abdominal pain Abdominal pain, right upper quadrant Acute respiratory failure with hypoxia (H) Acute respiratory failure Fall, initial encounter 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 of right middle cerebral artery (H) documented in this encounter Admitting Diagnoses Diagnosis Weakness generalized Other malaise and fatigue RUQ abdominal pain Abdominal pain, right upper quadrant Acute respiratory failure with hypoxia (H) Acute respiratory failure Fall, initial encounter Pneumonia of both lower lobes due to infectious organism Hyponatremia Hyposmolality and/or hyponatremia documented in this encounter Administered Medications Inactive Administered Medications - up to 3 most recent administrations Medication Order MAR Action Action Date Dose Rate Site acetaminophen (TYLENOL) Suppository 650 mg 650 mg, Rectal, EVERY 4 HOURS PRN, mild pain, other, and adjunct with moderate or severe pain or per patient request, Starting on 10/12/24 at 1522, Alternate with ibuprofen if ordered. Maximum acetaminophen dose from all sources = 75 mg/kg/day not to exceed 4 grams/day. acetaminophen (TYLENOL) tablet 650 mg 650 mg, Oral, EVERY 4 HOURS PRN, mild pain, other, and adjunct with moderate or severe pain or per patient request, Starting on 10/12/24 at 1522, Alternate with ibuprofen if ordered. Maximum acetaminophen dose from all sources = 75 mg/kg/day not to exceed 4 grams/day. $Given 10/26/2024 9:07 AM CDT 650 mg $Given 10/25/2024 3:20 PM DIRECTOR VIDEO 650 mg $Given 10/25/2024 8:08 AM DIRECTOR VIDEO 650 mg alteplase (ACTIVASE) 10 mg, dornase talia (PULMOZYME) 5 mg in sodium chloride 0.9 % 50 mL for chest tube instillation in syringe 50 mL, Chest Tube, 2 TIMES DAILY, First dose on Sun10/20/24 at 2100, For 6 doses, Instill into the chest tube and clamp for 1 hour. $Given 10/23/2024 10:04 AM DIRECTOR VIDEO 50 mLs $Given 10/22/2024 9:04 PM DIRECTOR VIDEO 50 mLs $Given 10/22/2024 9:32 AM DIRECTOR VIDEO 50 mLs amiodarone (NEXTERONE) 1.8 mg/mL in dextrose 5% 200 mL ADULT STANDARD infusion 1 mg/min (33.3333 mL/hr, rounded to 33.3 mL/hr), Intravenous, CONTINUOUS, Starting on Sun10/15/24 at 0600, After 24 hours of infusion, call provider for further orders (if provider not already contacted). Hold for systolic blood pressure less than 90 or heart rate less than 60 beats per minute. FOR Telemetry patients ONLY. Run for 6 hours. The use of an in-line 0.22 micron filter is required for PERIPHERAL or MIDLINE administration to reduce the incidence of phlebitis. Rate/Dose Verify 10/15/2024 11:00 AM DIRECTOR VIDEO 1 mg/min 33.3 mL/hr Rate/Dose Verify 10/15/2024 10:00 AM DIRECTOR VIDEO 1 mg/min 33.3 m L/hr Rate/Dose Verify 10/15/2024 9:00 AM DIRECTOR VIDEO 1 mg/min 33.3 mL /hr amiodarone (NEXTERONE) 1.8 mg/mL in dextrose 5% 200 mL ADULT STANDARD infusion 0.5 mg/min (16.6667 mL/hr, rounded to 16.7 mL/hr), Intravenous, CONTINUOUS, Starting on Sun10/15/24 at 1200, After 24 hours of infusion, call provider for further orders (if provider not already contacted). Hold for systolic blood pressure less than 90 or heart rate less than 60 beats per minute. FOR Telemetry patients ONLY. The use of an in-line 0.22 micron filter is required for PERIPHERAL or MIDLINE administration to reduce the incidence of phlebitis. $New Bag 10/16/2024 12:09 PM DIRECTOR VIDEO 0.5 mg/min 16.7 mL/hr Rate/Dose Verify 10/16/2024 8:43 AM DIRECTOR VIDEO 0.5 mg/min 16.7 mL /hr Rate/Dose Verify 10/16/2024 7:48 AM DIRECTOR VIDEO 0.5 mg/min 16.7 mL /hr amiodarone (PACERONE) tablet 200 mg 200 mg, Oral, 2 TIMES DAILY, First dose on Teresa 10/16/24 at 2200, Tablets can be crushed and given via enteral route. Avoid grapefruit juice during oral amiodarone treatment. $Given 10/29/2024 5:38 AM CDT 200 mg $Given 10/28/2024 6:48 PM CDT 200 mg $Given 10/28/2024 6:54 AM CDT 200 mg apixaban ANTICOAGULANT (ELIQUIS) tablet 5 mg 5 mg, Oral, 2 TIMES DAILY, First dose on Sun10/24/24 at 2100, Indications: Afib-non valvularIndications:Afib-non valvular $Given 10/29/2024 8:28 AM CDT 5 mg $Given 10/28/2024 9:13 PM CDT 5 mg $Given 10/28/2024 9:39 AM CDT 5 mg apixaban ANTICOAGULANT (ELIQUIS) tablet 5 mg 5 mg, Oral, 2 TIMES DAILY, First dose on 10/12/24 at 2000, Indications: Afib-non valvularIndications:Afib-non valvular $Given 10/20/2024 7:55 AM DIRECTOR VIDEO 5 mg $Given 10/19/2024 8:54 PM DIRECTOR VIDEO 5 mg $Given 10/19/2024 8:50 AM DIRECTOR VIDEO 5 mg atorvastatin (LIPITOR) tablet 40 mg 40 mg, Oral, EVERY EVENING, First dose on Sun10/27/24 at 2000 $Given 10/27/2024 7:27 PM CDT 40 mg azithromycin (ZITHROMAX) 500 mg in NS 250 mL intermittent infusion STAT, 500 mg, Intravenous, ONCE, On 10/12/24 at 1235, For 1 dose, Indications: Community Acquired PneumoniaIndications:Community Acquired Pneumonia $New Bag 10/12/2024 1:17 PM DIRECTOR VIDEO 500 mg azithromycin (ZITHROMAX) 500 mg in NS 250 mL intermittent infusion Routine, 500 mg, Intravenous, EVERY 24 HOURS, First dose (after last reorder) on Sun10/13/24 at 0800, Indications: Community Acquired PneumoniaIndications:Community Acquired Pneumonia $New Bag 10/14/2024 9:37 AM DIRECTOR VIDEO 500 mg $New Bag 10/13/2024 9:34 AM DIRECTOR VIDEO 500 mg benzonatate (TESSALON) capsule 100 mg 100 mg, Oral, 3 TIMES DAILY PRN, cough, Starting on Sun10/14/24 at 1224, Swallow whole. Do not chew, crush or break. $Given 10/27/2024 10:33 PM CDT 100 mg $Given 10/27/2024 12:10 AM CDT 100 mg $Given 10/26/2024 5:21 PM CDT 100 mg bisacodyl (DULCOLAX) suppository 10 mg 10 mg, Rectal, DAILY PRN, constipation, Starting on Sun10/15/24 at 1032, Hold for loose stools. $Given 10/15/2024 11:58 AM DIRECTOR VIDEO 10 mg carboxymethylcellulose PF (REFRESH PLUS) 0.5 % ophthalmic solution 1 drop 1 drop, Both Eyes, EVERY 1 HOUR PRN, dry eyes, Starting on Sun10/15/24 at 1032 carvedilol (COREG) tablet 12.5 mg 12.5 mg, Oral, 2 TIMES DAILY WITH MEALS, First dose on Sun10/12/24 at 1800, Tablets can be crushed and given via enteral route. HOLD WITH HR < 50 of SBP < 100 $Given 10/17/2024 6:29 AM DIRECTOR VIDEO 12.5 m g $Given 10/16/2024 5:37 PM DIRECTOR VIDEO 12.5 mg $Given 10/16/2024 8:34 AM DIRECTOR VIDEO 12.5 mg cefTRIAXone (ROCEPHIN) 2 g vial to attach to NS 100 ml bag for ADULTS or NS 50 ml bag for PEDS STAT, 2 g, Intravenous, ONCE, On Sun10/12/24 at 1235, For 1 dose, First dose STAT and to be started in the unit ordered (ED) PRIOR to transfer or admission. Lactated Ringer's solution is not compatible with ceftriaxone for injection, Indications: Community Acquired PneumoniaIndications:Community Acquired Pneumonia $New Bag 10/12/2024 12:48 PM DIRECTOR VIDEO 2 g cefTRIAXone (ROCEPHIN) 2 g vial to attach to NS 100 ml bag for ADULTS or NS 50 ml bag for PEDS Routine, 2 g, Intravenous, EVERY 24 HOURS, First dose (after last reorder) on Sun10/13/24 at 0800, First dose STAT and to be started in the unit ordered (ED) PRIOR to transfer or admission. Lactated Ringer's solution is not compatible with ceftriaxone for injection, Indications: Community Acquired PneumoniaIndications:Community Acquired Pneumonia $New Bag 10/14/2024 8:40 AM DIRECTOR VIDEO 2 g 200 mL/hr $New Bag 10/13/2024 8:33 AM DIRECTOR VIDEO 2 g chlorproMAZINE (THORAZINE) tablet 50 mg 50 mg, Oral, 3 TIMES DAILY PRN, hiccups, Starting on Sun10/22/24 at 0922 $Given 10/23/2024 5:20 AM DIRECTOR VIDEO 50 mg $Given 10/22/2024 9:59 AM DIRECTOR VIDEO [address] scan flush Intravenous, 100 mL, ONCE, On Sun10/27/24 at 1400, For 1 dose, This entry is for use by Radiology to intermittently used as a flush in patients receiving a CT scan. $Given 10/27/2024 1:41 PM CDT 80 mLs dextrose 50 % injection 25-50 mL 25-50 mL, Intravenous, EVERY 15 MIN PRN, low blood sugar, Administer over 1-5 Minutes, Starting on Sun10/12/24 at 1505, Use if have IV access, BG less than 70 mg/dL and meet dose criteria below: Dose if conscious and alert (or disorientated) and NPO = 25 mL Dose if unconscious / not alert = 50 mL Give first dose for initial blood glucose less than 70 mg/dL. If blood glucose at 15 minute recheck is less than or equal to 80 mg/dL continue to administer carbohydrate treatment every 15 minutes, as needed, based on blood glucose and assessment parameters until blood glucose level is above 80 mg/dL x 2 consecutive 15 minute checks. diclofenac (VOLTAREN) 1 % topical gel 2 g 2 g, Topical, 4 TIMES DAILY, First dose on Sun10/13/24 at 1600, Apply to right lower chest, flank. Use supplied dosing card to measure dose. $Given 10/28/2024 9:26 PM CDT 2 g $Given 10/28/2024 4:36 PM CDT 2 g $Given 10/28/2024 3:09 PM CDT 2 g ezetimibe (ZETIA) tablet 10 mg 10 mg, Oral, EVERY EVENING, First dose on Sun10/12/24 at 2000 $Given 10/28/2024 9:11 PM CDT 10 mg $Given 10/27/2024 7:27 PM CDT 10 mg $Given 10/26/2024 7:15 PM CDT 10 mg furosemide (LASIX) injection 20 mg 20 mg, Intravenous, ONCE, Administer over 1-3 Minutes, On Sun10/14/24 at 0400, For 1 dose $Given 10/14/2024 4:03 AM DIRECTOR VIDEO 20 mg gadobutrol (GADAVIST) injection 8 mL 8 mL, Intravenous, ONCE, On Sun10/15/24 at 1430, For 1 dose, Supplied by, and administered by MRI. $Given 10/15/2024 2:55 PM DIRECTOR VIDEO 8 mLs gadobutrol (GADAVIST) injection 9 mL 9 mL, Intravenous, ONCE, On Sun10/14/24 at 1530, For 1 dose $Given 10/14/2024 3:39 PM DIRECTOR VIDEO 9 mLs glucagon injection 1 mg 1 mg, Subcutaneous, EVERY 15 MIN PRN, low blood sugar, May repeat x 1 only, Starting on Sun10/12/24 at 1505, May give SQ or IM. ONLY use glucagon IF patient has NO IV access AND is UNABLE to swallow AND blood glucose is LESS than or EQUAL to 50 mg/dL. glucose gel 15-30 g 15-30 g, Oral, EVERY 15 MIN PRN, low blood sugar, Starting on Sun10/12/24 at 1505, Give first dose for initial blood glucose less than 70 mg/dL per the dosing instructions below. If blood glucose at 15 minute rechecks is still less than or equal to 80 mg/dL, continue to administer doses per blood glucose parameters every 15 minutes, as needed, until blood glucose level is at or above 80 mg/dL x 2 consecutive 15 minute checks. Dosing Instructions: ~If patient is conscious and able to swallow and NO enteral tube For initial BG 51-69mg/dL OR 15 minute recheck BG 51- 80 mg/dL - give 15 g For BG less than or equal to 50 mg/dL - give 30 g ~ If Enteral tube For initial BG 51-69mg/dL OR 15 minute recheck BG 51- 80 mg/dL - give apple juice 120 mL (4 oz or 15 g of CHO) via enteral tube For BG less than or equal to 50 mg/dL - Give apple juice 240 mL (8 oz or 30 g of CHO) via enteral tube ~Oral gel is preferable for conscious and able to swallow patient. ~IF gel unavailable or patient refuses may provide apple juice per Enteral tube dosing instructions. Document juice on I and O flowsheet. guaiFENesin (MUCINEX) 12 hr tablet 600 mg 600 mg, Oral, 2 TIMES DAILY, First dose on 10/13/24 at 2000, DO NOT CRUSH. $Given 10/29/2024 8:27 AM CDT 600 mg $Given 10/28/2024 9:13 PM CDT 600 mg $Given 10/28/2024 9:39 AM CDT 600 mg guaiFENesin-dextromethorphan (ROBITUSSIN DM) 100-10 MG/5ML syrup 10 mL 10 mL, Oral, EVERY 4 HOURS PRN, cough, Starting on 10/25/24 at 2338 $Given 10/26/2024 12:30 AM DIRECTOR VIDEO 10 mLs HYDROmorphone (DILAUDID) injection 0.2 mg 0.2 mg, Intravenous, EVERY 4 HOURS PRN, severe pain, Starting on Sun10/13/24 at 0850 $Given 10/21/2024 1:17 PM DIRECTOR VIDEO 0.2 mg $Given 10/20/2024 5:34 PM DIRECTOR VIDEO 0.2 mg $Given 10/20/2024 11:29 AM DIRECTOR VIDEO 0.2 mg HYDROmorphone (PF) (DILAUDID) injection 0.5 mg 0.5 mg, Intravenous, EVERY 15 MIN PRN, severe pain, Starting on Sun10/12/24 at 1049, For 3 doses $Given 10/12/2024 2:32 PM DIRECTOR VIDEO 0.5 mg $Given 10/12/2024 12:51 PM DIRECTOR VIDEO 0.5 mg $Given 10/12/2024 11:10 AM DIRECTOR VIDEO 0.3 mg HYDROmorphone (PF) (DILAUDID) injection 0.5 mg 0.5 mg, Intravenous, EVERY 4 HOURS PRN, severe pain, Starting on Sun10/21/24 at 1517 $Given 10/25/2024 10:20 PM DIRECTOR VIDEO 0.5 mg $Given 10/25/2024 2:28 PM DIRECTOR VIDEO 0.5 mg $Given 10/24/2024 9:26 PM DIRECTOR VIDEO 0.5 mg hydrOXYzine HCl (ATARAX) tablet 25 mg 25 mg, Oral, EVERY 6 HOURS PRN, other, adjuvant pain, Starting on Sun10/13/24 at 0849, Start with 25 mg for the initial dose. If the 25 mg dose is ineffective, increase to the 50 mg dose at the next administration time and maintain further doses at 50 mg. If the 50 mg dose is ineffective, contact the provider. $Given 10/24/2024 11:43 PM DIRECTOR VIDEO 25 mg $Given 10/24/2024 8:02 AM DIRECTOR VIDEO 25 mg $Given 10/24/2024 12:55 AM DIRECTOR VIDEO 25 mg insulin aspart (NovoLOG) injection (RAPID ACTING) 1-3 Units, Subcutaneous, 3 TIMES DAILY BEFORE MEALS, First dose on Sun10/12/24 at 1700, Correction Scale - LOW INSULIN RESISTANCE DOSING Do Not give Correction Insulin if Pre-Meal BG less than 140. For Pre-Meal BG 140 - 239 give 1 unit. For Pre-Meal BG 240 - 339 give 2 units. For Pre-Meal BG greater than or equal to 340 give 3 units. To be given with prandial insulin, and based on pre-meal blood glucose. Administering insulin within 5 minutes of the start of the meal is ideal. Administer insulin no more than 30 minutes after the start of the meal, unless directed otherwise by provider. Notify provider if glucose greater than or equal to 350 mg/dL after administration of correction dose. $Given 10/13/2024 8:42 AM DIRECTOR VIDEO 2 Units insulin aspart (NovoLOG) injection (RAPID ACTING) 1-3 Units, Subcutaneous, AT BEDTIME, First dose on Sun10/12/24 at 2200, LOW INSULIN RESISTANCE DOSING Do Not give Bedtime Correction Insulin if BG less than 200. For BG 200 - 299 give 1 unit. For BG 300 - 399 give 2 units For BG greater than or equal 400 give 3 units. Notify provider if glucose greater than or equal to 350 mg/dL after administration of correction dose. $Given 10/12/2024 9:47 PM DIRECTOR VIDEO 2 U nits insulin aspart (NovoLOG) injection (RAPID ACTING) 2 Units, Subcutaneous, ONCE, On Sun10/12/24 at 2050, For 1 dose $Given 10/12/2024 9:46 PM DIRECTOR VIDEO 2 Units insulin aspart (NovoLOG) injection (RAPID ACTING) Subcutaneous, 3 TIMES DAILY WITH MEALS, First dose on Sun10/13/24 at 0930, DOSE: 2 units per 10 grams of carbohydrate. Only chart total amount of units given. Administering insulin within 5 minutes of the start of the meal is ideal. Administer insulin no more than 30 minutes after the start of the meal, unless directed otherwise by provider. If pre-prandial glucose is less than 60 mg/dL, treat per hypoglycemia protocol prior to administration of mealtime insulin dose. $Given 10/29/2024 1:54 PM CDT 16 Units $Given 10/29/2024 9:44 AM CDT 19 Units $Given 10/28/2024 6:07 PM CDT 12 Units Ab dominal Tissue insulin aspart (NovoLOG) injection (RAPID ACTING) 1-7 Units, Subcutaneous, 3 TIMES DAILY BEFORE MEALS, First dose on Sun10/13/24 at 1200, Correction Scale - MEDIUM INSULIN RESISTANCE DOSING Do Not give Correction Insulin if Pre-Meal BG less than 140. For Pre-Meal BG 140 - 189 give 1 unit. For Pre-Meal BG 190 - 239 give 2 units. For Pre-Meal BG 240 - 289 give 3 units. For Pre-Meal BG 290 - 339 give 4 units. For Pre-Meal BG 340- 389 give 5 units. For Pre-Meal BG 390-439 give 6 units For Pre-Meal BG greater than or equal to 440 give 7 units. To be given with prandial insulin, and based on pre-meal blood glucose. Administering insulin within 5 minutes of the start of the meal is ideal. Administer insulin no more than 30 minutes after the start of the meal, unless directed otherwise by provider. Notify provider if glucose greater than or equal to 350 mg/dL after administration of correction dose. $Given 10/15/2024 6:22 PM DIRECTOR VIDEO 4 Units $Given 10/15/2024 12:12 PM DIRECTOR VIDEO 4 Units $Given 10/15/2024 9:47 AM DIRECTOR VIDEO 3 Units insulin aspart (NovoLOG) injection (RAPID ACTING) 1-5 Units, Subcutaneous, AT BEDTIME, First dose on Sun10/13/24 at 2200, MEDIUM INSULIN RESISTANCE DOSING Do Not give Bedtime Correction Insulin if BG less than 200. For BG 200 - 249 give 1 units. For BG 250 - 299 give 2 units. For BG 300 - 349 give 3 units. For BG 350 -399 give 4 units. For BG greater than or equal to 400 give 5 units. Notify provider if glucose greater than or equal to 350 mg/dL after administration of correction dose. $Given 10/15/2024 9:45 PM DIRECTOR VIDEO 3 Units $Given 10/14/2024 10:42 PM DIRECTOR VIDEO 3 Units $Given 10/13/2024 9:19 PM DIRECTOR VIDEO 5 Units insulin aspart (NovoLOG) injection (RAPID ACTING) 6 Units, Subcutaneous, ONCE, On Sun10/14/24 at 0030, For 1 dose $Given 10/14/2024 12:20 AM DIRECTOR VIDEO 6 Units insulin aspart (NovoLOG) injection (RAPID ACTING) 8 Units, Subcutaneous, ONCE, On Sun10/15/24 at 0300, For 1 dose $Given 10/15/2024 2:44 AM DIRECTOR VIDEO 8 Units insulin aspart (NovoLOG) injection (RAPID ACTING) 1-10 Units, Subcutaneous, 3 TIMES DAILY BEFORE MEALS, First dose on Sun10/16/24 at 0800, Correction Scale - HIGH INSULIN RESISTANCE DOSING Do Not give Correction Insulin if Pre-Meal BG less than 140. For Pre-Meal BG 140 - 164 give 1 unit. For Pre-Meal BG 165 - 189 give 2 units. For Pre-Meal BG 190 - 214 give 3 units. For Pre-Meal BG 215 - 239 give 4 units. For Pre-Meal BG 240 - 264 give 5 units. For Pre-Meal BG 265 - 289 give 6 units. For Pre-Meal BG 290 - 314 give 7 units. For Pre-Meal BG 315 - 339 give 8 units. For Pre-Meal BG 340 - 364 give 9 units. For Pre-Meal BG greater than or equal to 365 give 10 units To be given with prandial insulin, and based on pre-meal blood glucose. Administering insulin within 5 minutes of the start of the meal is ideal. Administer insulin no more than 30 minutes after the start of the meal, unless directed otherwise by provider. Notify provider if glucose greater than or equal to 350 mg/dL after administration of correction dose. $Given 10/28/2024 5:21 PM CDT 9 Units $Given 10/28/2024 3:07 PM CDT 4 Units $Given 10/27/2024 5:20 PM CDT 3 Units insulin aspart (NovoLOG) injection (RAPID ACTING) 1-7 Units, Subcutaneous, AT BEDTIME, First dose on Sun10/16/24 at 2200, HIGH INSULIN RESISTANCE DOSING Do Not give Bedtime Correction Insulin if BG less than 200. For BG 200 - 224 give 1 units. For BG 225 - 249 give 2 units. For BG 250 - 274 give 3 units. For BG 275 - 299 give 4 units. For BG 300 - 324 give 5 units. For BG 325 - 349 give 6 units. For BG greater than or equal to 350 give 7 units. Notify provider if glucose greater than or equal to 350 mg/dL after administration of correction dose. $Given 10/26/2024 9:03 PM CDT 2 U nits $Given 10/24/2024 9:38 PM DIRECTOR VIDEO 2 Units $Given 10/23/2024 9:42 PM DIRECTOR VIDEO 2 Units insulin glargine (LANTUS PEN) injection 12 Units 12 Units, Subcutaneous, AT BEDTIME, First dose (after last modification) on Sun10/13/24 at 2200 $Given 10/13/2024 9:19 PM DIRECTOR VIDEO 12 Units insulin glargine (LANTUS PEN) injection 16 Units 16 Units, Subcutaneous, AT BEDTIME, First dose (after last modification) on Sun10/14/24 at 2200 $Given 10/14/2024 10:42 PM DIRECTOR VIDEO 16 Units insulin glargine (LANTUS PEN) injection 22 Units 22 Units, Subcutaneous, AT BEDTIME, First dose (after last modification) on Sun10/15/24 at 2200 $Given 10/16/2024 9:38 PM DIRECTOR VIDEO 22 Units $Given 10/15/2024 9:45 PM DIRECTOR VIDEO 22 Units insulin glargine (LANTUS PEN) injection 30 Units 30 Units, Subcutaneous, AT BEDTIME, First dose (after last modification) on Sun10/17/24 at 2200 $Given 10/28/2024 10:14 PM CDT 30 Units $Given 10/27/2024 10:34 PM CDT 30 Units $Given 10/26/2024 9:03 PM CDT 30 Units insulin glargine (LANTUS PEN) injection 5 Units 5 Units, Subcutaneous, AT BEDTIME, First dose on Sun10/12/24 at 2200 $Given 10/12/2024 10:32 PM DIRECTOR VIDEO 5 Units insulin NPH injection 6 Units 6 Units, Subcutaneous, ONCE, On Sun10/15/24 at 1100, For 1 dose $Given 10/15/2024 12:11 PM DIRECTOR VIDEO 6 Units iopamidol (ISOVUE-370) solution 500 mL 500 mL, Intravenous, ONCE, On 10/27/24 at 1400, For 1 dose $Given 10/27/2024 1:41 PM CDT 134 mLs iopamidol (ISOVUE-370) solution 500 mL 500 mL, Intravenous, ONCE, On 10/12/24 at 1210, For 1 dose $Given 10/12/2024 12:12 PM DIRECTOR VIDEO 98 mLs ketorolac (TORADOL) injection 15 mg 15 mg, Intravenous, ONCE, On Teresa 10/23/24 at 0900, For 1 dose, Can cause pain on injection. If ordered intravenously (IV) : administer through a running maintenance fluid over 1 minute followed by a flush. If patient complains of pain on injection, may dilute 15-30 mg in 5 mL and push over 1 to 2 minutes. $Given 10/23/2024 8:50 AM DIRECTOR VIDEO 15 mg lamoTRIgine (LaMICtal) tablet 300 mg 300 mg, Oral, 2 TIMES DAILY, First dose on 10/12/24 at 2000 $Given 10/29/2024 8:27 AM CDT 300 mg $Given 10/28/2024 9:12 PM CDT 300 mg $Given 10/28/2024 9:38 AM CDT 300 mg Lidocaine (LIDOCARE) 4 % Patch 1 patch 1 patch, Transdermal, Administer over 12 Hours, EVERY 24 HOURS 0800, First dose on 10/12/24 at 1525, Apply patch(s) to ribs. To prevent lidocaine toxicity, patient should be patch free for 12 hrs daily. Patches may be cut to smaller size prior to removing release liner. Reminder: Remove previous patch before applying new patch. NEVER APPLY HEAT OVER PATCH which increases absorption and may lead to local anesthetic toxicity. Do not apply over area where liposomal bupivacaine was injected for 96 hours post injection. Avoid heat exposure to application site or surrounding areas. This includes heat from external sources, such as heating pads, electric blankets, or other equipment. $Patch/Med Applied 10/29/2024 8:26 AM CDT 1 patch Right Upper Back $Patch/Med Applied 10/28/2024 9:42 AM CDT 1 patch Right Upper Back $Patch/Med Applied 10/27/2024 9:00 AM CDT 1 patch Right Lower Back lidocaine (LMX4) cream Topical, EVERY 1 HOUR PRN, pain, with VAD insertion, Starting on Sun10/15/24 at 1446, Apply at least 30 minutes prior to VAD insertion in divided doses as needed for size of site for insertion. MAX Dose: 2.5 g ( of 5 g tube) Do NOT give if patient has a history of allergy to any local anesthetic or any chente product. Do NOT use both lidocaine intradermal/subcutaneous injection and the lidocaine cream on the same site. lidocaine 1 % 0.1-1 mL 0.1-1 mL, Other, EVERY 1 HOUR PRN, mild pain with VAD insertion, Starting on Sun10/15/24 at 1446, MAX dose 1 mL subcutaneous OR intradermal along the side of the vein in divided doses as needed for VAD insertion. Do NOT give if patient has a history of allergy to any local anesthetic or any chente product. Do NOT use both lidocaine intradermal/subcutaneous injection and the lidocaine cream on the same site. lidocaine 1 % 10 mL 10 mL, Subcutaneous, ONCE, On Sun10/14/24 at 1100, For 1 dose $Given by Other 10/14/2024 11:02 AM DIRECTOR VIDEO 10 mLs lidocaine 1 % 10 mL 10 mL, Subcutaneous, ONCE, On Sun10/16/24 at 1130, For 1 dose $Given by Other 10/16/2024 11:15 AM DIRECTOR VIDEO 10 mLs lisinopril (ZESTRIL) tablet 30 mg 30 mg, Oral, DAILY, First dose on Sun10/13/24 at 0800, HOLD WITH HR < 60 of SBP < 130 $Given 10/29/2024 8:28 AM CDT 30 mg $Given 10/28/2024 9:38 AM CDT 30 mg $Given 10/22/2024 8:00 AM DIRECTOR VIDEO 30 mg magnesium oxide (MAG-OX) tablet 400 mg 400 mg, Oral, EVERY 4 HOURS, First dose on Sun10/23/24 at 1730, For 2 doses, Avoid using oral magnesium if patient has current diarrhea. Magnesium level 1.6-2 mg/dL Administer 400 mg ORAL magnesium x 2 doses and recheck magnesium level the AM after the last ORAL dose. Ordered from the Magnesium replacement order set., Magnesium Replacement: Magnesium level 1.6-2 mg/dL, Recheck: Magnesium level next AM $Given 10/23/2024 9:06 PM DIRECTOR VIDEO 400 mg $Given 10/23/2024 6:09 PM DIRECTOR VIDEO 400 mg magnesium oxide (MAG-OX) tablet 400 mg 400 mg, Oral, EVERY 4 HOURS, First dose on Sun10/25/24 at 2000, For 2 doses, Avoid using oral magnesium if patient has current diarrhea. Magnesium level 1.6-2 mg/dL Administer 400 mg ORAL magnesium x 2 doses and recheck magnesium level the AM after the last ORAL dose. Ordered from the Magnesium replacement order set., Magnesium Replacement: Magnesium level 1.6-2 mg/dL, Recheck: Magnesium level next AM $Given 10/25/2024 11:07 PM DIRECTOR VIDEO 400 mg $Given 10/25/2024 8:28 PM DIRECTOR VIDEO 400 mg magnesium oxide (MAG-OX) tablet 400 mg 400 mg, Oral, EVERY 4 HOURS, First dose on Sun10/26/24 at 0800, For 2 doses, Avoid using oral magnesium if patient has current diarrhea. Magnesium level 1.6-2 mg/dL Administer 400 mg ORAL magnesium x 2 doses and recheck magnesium level the AM after the last ORAL dose. Ordered from the Magnesium replacement order set., Magnesium Replacement: Magnesium level 1.6-2 mg/dL, Recheck: Magnesium level next AM $Given 10/26/2024 11:57 AM CDT 400 mg $Given 10/26/2024 9:08 AM CDT 400 mg magnesium oxide (MAG-OX) tablet 400 mg 400 mg, Oral, EVERY 4 HOURS, First dose on Sun10/27/24 at 0930, For 2 doses, Avoid using oral magnesium if patient has current diarrhea. Magnesium level 1.6-2 mg/dL Administer 400 mg ORAL magnesium x 2 doses and recheck magnesium level the AM after the last ORAL dose. Ordered from the Magnesium replacement order set., Magnesium Replacement: Magnesium level 1.6-2 mg/dL, Recheck: Magnesium level next AM $Given 10/27/2024 11:17 AM CDT 400 mg magnesium oxide (MAG-OX) tablet 400 mg 400 mg, Oral, EVERY 4 HOURS, First dose on Sun10/28/24 at 0800, For 2 doses, Avoid using oral magnesium if patient has current diarrhea. Magnesium level 1.6-2 mg/dL Administer 400 mg ORAL magnesium x 2 doses and recheck magnesium level the AM after the last ORAL dose. Ordered from the Magnesium replacement order set., Magnesium Replacement: Magnesium level 1.6-2 mg/dL, Recheck: Magnesium level next AM $Given 10/28/2024 1:35 PM CDT 400 mg $Given 10/28/2024 9:39 AM CDT 400 mg magnesium oxide (MAG-OX) tablet 400 mg 400 mg, Oral, EVERY 4 HOURS, First dose on Sun10/29/24 at 0830, For 2 doses, Avoid using oral magnesium if patient has current diarrhea. Magnesium level 1.6-2 mg/dL Administer 400 mg ORAL magnesium x 2 doses and recheck magnesium level the AM after the last ORAL dose. Ordered from the Magnesium replacement order set., Magnesium Replacement: Magnesium level 1.6-2 mg/dL, Recheck: Magnesium level next AM $Given 10/29/2024 9:44 AM CDT 400 mg magnesium oxide (MAG-OX) tablet 400 mg 400 mg, Oral, EVERY 4 HOURS, First dose on Sun10/20/24 at 0330, For 2 doses, Avoid using oral magnesium if patient has current diarrhea. Magnesium level 1.6-2 mg/dL Administer 400 mg ORAL magnesium x 2 doses and recheck magnesium level the AM after the last ORAL dose. Ordered from the Magnesium replacement order set., Magnesium Replacement: Magnesium level 1.6-2 mg/dL, Recheck: Magnesium level next AM $Given 10/20/2024 6:32 AM DIRECTOR VIDEO 400 mg $Given 10/20/2024 3:30 AM DIRECTOR VIDEO 400 mg melatonin tablet 3 mg 3 mg, Oral, AT BEDTIME PRN, sleep, Starting on Sun10/27/24 at 0215 $Given 10/28/2024 9:10 PM CDT 3 mg $Given 10/27/2024 2:22 AM CDT 3 mg metFORMIN (GLUCOPHAGE) tablet 500 mg 500 mg, Oral, DAILY WITH SUPPER, First dose on Sun10/13/24 at 1700, If the patient receives intravenous, iodinated contrast and patient GFR is greater than 60 mL/min/1.7m2, continue metformin. Contact provider for 'hold' or 'no hold' instructions if no GFR or if GFR is less than 60 mL/min/1.7m2. $Given 10/28/2024 6:10 PM CDT 500 mg $Given 10/27/2024 4:15 PM CDT 500 mg $Given 10/26/2024 5:16 PM CDT 500 mg metoprolol (LOPRESSOR) injection 5 mg 5 mg, Intravenous, ONCE, Administer over 5-10 Minutes, On Sun10/15/24 at 0200, For 1 dose $Given 10/15/2024 1:52 AM DIRECTOR VIDEO 5 mg metoprolol (LOPRESSOR) injection 5 mg 5 mg, Intravenous, ONCE, Administer over 5-10 Minutes, On Sun10/15/24 at 0330, For 1 dose $Given 10/15/2024 3:38 AM DIRECTOR VIDEO 5 mg metoprolol (LOPRESSOR) injection 5 mg 5 mg, Intravenous, ONCE, Administer over 5-10 Minutes, On Sun10/17/24 at 1200, For 1 dose $Given 10/17/2024 12:44 PM DIRECTOR VIDEO 5 mg metoprolol succinate ER (TOPROL XL) 24 hr tablet 50 mg 50 mg, Oral, 2 TIMES DAILY, First dose on Sun10/18/24 at 0900, DO NOT CRUSH. Tablet may be split in half along score line. HOLD for SBP<110 or HR<55 $Given 10/29/2024 8:27 AM CDT 50 mg $Given 10/28/2024 9:13 PM CDT 50 mg $Given 10/28/2024 9:39 AM CDT 50 mg metoprolol tartrate (LOPRESSOR) tablet 25 mg 25 mg, Oral, 3 TIMES DAILY, First dose on Sun10/17/24 at 1600, Tablets can be crushed and given via enteral route. $Given 10/17/2024 10:47 PM DIRECTOR VIDEO 25 mg $Given 10/17/2024 4:18 PM DIRECTOR VIDEO 25 mg miconazole (MICATIN) 2 % powder Topical, 2 TIMES DAILY, First dose on Sun10/19/24 at 2100, Apply to skin folds $Given 10/28/2024 9:26 PM CDT $Given 10/28/2024 9:48 AM CDT $Given 10/27/2024 9:01 AM CDT morphine (PF) injection 1 mg 1 mg, Intravenous, ONCE, On 10/12/24 at 2105, For 1 dose $Given 10/12/2024 10:10 PM DIRECTOR VIDEO 1 mg multivitamin w/minerals (THERA-VIT-M) tablet 1 tablet 1 tablet, Oral, DAILY, First dose on Sun10/15/24 at 1500 $Given 10/29/2024 8:27 AM CDT 1 tablet $Given 10/28/2024 9:39 AM CDT 1 tablet $Given 10/27/2024 9:00 AM CDT 1 tablet naloxone (NARCAN) injection 0.2 mg 0.2 mg, Intravenous, EVERY 2 MIN PRN, opioid reversal, Starting on 10/12/24 at 2143, Administer intravenous route when available and notify provider when administered. For unintended sedation or respiratory depression if all of the below criteria are met: ~ respiratory rate LESS than or EQUAL to 8. ~SaO2 less than 92% and or/end-tidal CO2 is greater than 50. ~ the patient is receiving an opioid, has unintended sedations assessed as RASS (-3), and is currently not on mechanical ventilation. RASS scale moderate (-3) is movement or eye opening to voice but no eye contact. Patient Monitoring Once the patient has demonstrated a response to the naloxone, continue to monitor respiratory rate, depth, oxygen saturation and end-tidal CO2 (if available) every 15 minutes x 2, then every 30 minutes x 2, then every 1 hour x 1 after each naloxone dose. Consider transfer to ICU if patient respiratory parameters have not improved after 4 naloxone doses. naloxone (NARCAN) injection 0.2 mg 0.2 mg, Intramuscular, EVERY 2 MIN PRN, opioid reversal, Starting on 10/12/24 at 2143, Administer intramuscular if an intravenous route is not available and notify provider when administered. For unintended sedation or respiratory depression if all of the below criteria are met: ~ respiratory rate LESS than or EQUAL to 8. ~SaO2 less than 92% and or/end-tidal CO2 is greater than 50. ~ the patient is receiving an opioid, has unintended sedations assessed as RASS (-3), and is currently not on mechanical ventilation. RASS scale moderate (-3) is movement or eye opening to voice but no eye contact. Patient Monitoring Once the patient has demonstrated a response to the naloxone, continue to monitor respiratory rate, depth, oxygen saturation and end-tidal CO2 (if available) every 15 minutes x 2, then every 30 minutes x 2, then every 1 hour x 1 after each naloxone dose. Consider transfer to ICU if patient respiratory parameters have not improved after 4 naloxone doses. naloxone (NARCAN) injection 0.4 mg 0.4 mg, Intravenous, EVERY 2 MIN PRN, opioid reversal, Starting on 10/12/24 at 2143, Administer intravenous route when available and notify provider when administered. For unintended sedation or respiratory depression if all of the below criteria are met: ~ respiratory rate LESS than or EQUAL to 8. ~ SaO2 less than 92% and or/end-tidal CO2 is greater than 50. ~ the patient is receiving an opioid, has unintended sedation assessed as RASS (-4) or (-5) and patient is currently not on mechanical ventilation. RASS scale (-4) is deep sedation with no response to voice but movement or eye opening to physical stimulation. RASS scale (-5) is unarousable. Patient Monitoring Once the patient has demonstrated a response to the naloxone, continue to monitor respiratory rate, depth, oxygen saturation and end-tidal CO2 (if available) every 15 minutes x 2, then every 30 minutes x 2, then every 1 hour x 1 after each naloxone dose. Consider transfer to ICU if patient respiratory parameters have not improved after 4 naloxone doses. naloxone (NARCAN) injection 0.4 mg 0.4 mg, Intramuscular, EVERY 2 MIN PRN, opioid reversal, Starting on 10/12/24 at 2143, Administer intramuscular if an intravenous route is not available and notify provider when administered. For unintended sedation or respiratory depression if all of the below criteria are met: ~ respiratory rate LESS than or EQUAL to 8. ~ SaO2 less than 92% and or/end-tidal CO2 is greater than 50. ~ the patient is receiving an opioid, has unintended sedation assessed as RASS (-4) or (-5) and patient is currently not on mechanical ventilation. RASS scale (-4) is deep sedation with no response to voice but movement or eye opening to physical stimulation. RASS scale (-5) is unarousable. Patient Monitoring Once the patient has demonstrated a response to the naloxone, continue to monitor respiratory rate, depth, oxygen saturation and end-tidal CO2 (if available) every 15 minutes x 2, then every 30 minutes x 2, then every 1 hour x 1 after each naloxone dose. Consider transfer to ICU if patient respiratory parameters have not improved after 4 naloxone doses. ondansetron (ZOFRAN ODT) ODT tab 4 mg 4 mg, Oral, EVERY 6 HOURS PRN, nausea/vomiting - 1st line, Starting on 10/12/24 at 1522, This is Step 1 of nausea and vomiting management. If nausea not resolved in 15 minutes, go to Step 2 prochlorperazine (COMPAZINE). With dry hands, peel back foil backing and gently remove tablet. Do not push oral disintegrating tablet through foil backing. Administer immediately on tongue and oral disintegrating tablet dissolves in seconds, then swallow with saliva. Liquid not required. ondansetron (ZOFRAN) injection 4 mg 4 mg, Intravenous, EVERY 6 HOURS PRN, nausea/vomiting - 1st line, Administer over 2-5 Minutes, Starting on 10/12/24 at 1522, Give IF patient unable to tolerate oral medication. This is Step 1 of nausea and vomiting management. If nausea not resolved in 15 minutes, go to Step 2 prochlorperazine (COMPAZINE). oxyCODONE (ROXICODONE) tablet 5 mg 5 mg, Oral, EVERY 6 HOURS PRN, severe pain, Starting on Sun10/12/24 at 1657 $Given 10/13/2024 1:30 AM DIRECTOR VIDEO 5 mg $Given 10/12/2024 6:38 PM DIRECTOR VIDEO 5 mg oxyCODONE (ROXICODONE) tablet 5 mg 5 mg, Oral, EVERY 4 HOURS PRN, severe pain, Starting on Sun10/13/24 at 0453 $Given 10/28/2024 9:12 PM CDT 5 mg $Given 10/26/2024 5:42 AM CDT 5 mg $Given 10/25/2024 8:47 PM DIRECTOR VIDEO 5 mg piperacillin-tazobactam (ZOSYN) 3.375 g vial to attach to NS 100 mL bag Routine, 3.375 g, Intravenous, EVERY 6 HOURS, First dose on Sun10/14/24 at 1230, For 58 doses, Lactated Ringer's solution is not compatible with piperacillin-tazobactam for injection., Indications: Community Acquired PneumoniaIndications:Community Acquired Pneumonia $New Bag 10/28/2024 9:25 PM CDT 3.375 g $New Bag 10/28/2024 4:31 PM CDT 3.375 g $New Bag 10/28/2024 9:57 AM CDT 3.375 g psyllium (METAMUCIL/KONSYL) capsule 5 capsule 5 capsule, Oral, DAILY, First dose on Teresa 10/16/24 at 0900, Each capsule should be administered individually with 8 ounces of fluid. $Given 10/29/2024 8:27 AM CDT 5 capsules $Given 10/28/2024 9:39 AM CDT 5 capsules $Given 10/27/2024 9:00 AM CDT 5 capsules psyllium (METAMUCIL/KONSYL) Packet 1 packet 1 packet, Oral, DAILY, First dose on Sun10/13/24 at 1600 $Given 10/13/2024 5:55 PM DIRECTOR VIDEO 1 packet senna-docusate (SENOKOT-S/PERICOLACE) 8.6-50 MG per tablet 1 tablet 1 tablet, Oral, 2 TIMES DAILY PRN, constipation, Starting on 10/12/24 at 1522, If no bowel movement in 24 hours, increase to 2 tablets by mouth. IF more than 1 constipation PRN medication is ordered, administer step-neumann as indicated, moving to the next step ONLY if prior step ineffective. Step 1: senna-docusate (SENOKOT-S; PERICOLACE) OR bisacodyl (DULCOLAX) EC tablet Step 2: polyethylene glycol (MIRALAX/GLYCOLAX) Step 3: bisacodyl (DULCOLAX) suppository Step 4: enema Hold for loose stools. $Given 10/15/2024 9:14 AM DIRECTOR VIDEO 1 table t senna-docusate (SENOKOT-S/PERICOLACE) 8.6-50 MG per tablet 2 tablet 2 tablet, Oral, 2 TIMES DAILY PRN, constipation, Starting on 10/12/24 at 1522, IF more than 1 constipation PRN medication is ordered, administer step-neumann as indicated, moving to the next step ONLY if prior step ineffective. Step 1: senna-docusate (SENOKOT-S; PERICOLACE) OR bisacodyl (DULCOLAX) EC tablet Step 2: polyethylene glycol (MIRALAX/GLYCOLAX) Step 3: bisacodyl (DULCOLAX) suppository Step 4: enema Hold for loose stools. sodium chloride (PF) 0.9% PF flush 3 mL 3 mL, Intracatheter, EVERY 8 HOURS, First dose on 10/12/24 at 1050, And PRN, to lock peripheral IV dormant line. $Given 10/13/2024 1:31 AM DIRECTOR VIDEO 3 mLs $Given 10/12/2024 6:31 PM DIRECTOR VIDEO 3 mLs sodium chloride (PF) 0.9% PF flush 3 mL 3 mL, Intracatheter, EVERY 8 HOURS, First dose on Sun10/12/24 at 1525, to lock peripheral IV dormant line $Given 10/15/2024 9:47 AM DIRECTOR VIDEO 3 mLs $Given 10/14/2024 10:44 PM DIRECTOR VIDEO 3 mLs $Given 10/14/2024 3:20 PM DIRECTOR VIDEO 3 mLs sodium chloride (PF) 0.9% PF flush 3 mL 3 mL, Intracatheter, EVERY 8 HOURS, First dose on Sun10/15/24 at 0600, to lock peripheral IV dormant line $Given 10/15/2024 9:49 PM DIRECTOR VIDEO 3 mLs sodium chloride (PF) 0.9% PF flush 3 mL 3 mL, Intracatheter, EVERY 8 HOURS, First dose on Sun10/15/24 at 1500, to lock peripheral IV dormant line $Given 10/28/2024 4:36 PM CDT 3 mLs $Given 10/28/2024 9:48 AM CDT 3 mLs $Given 10/27/2024 11:41 PM CDT 3 mLs sodium chloride (PF) 0.9% PF flush 3 mL 3 mL, Intracatheter, EVERY 1 MIN PRN, line flush, other, to ensure patency or to lock dormant line, Starting on Sun10/15/24 at 1446 $Given 10/28/2024 9:2 6 PM CDT 3 mLs $Given 10/25/2024 10:22 PM DIRECTOR VIDEO 3 mLs $Given 10/25/2024 8:34 PM DIRECTOR VIDEO 3 mLs sodium chloride (PF) 0.9% PF flush 60 mL 60 mL, Intravenous, ONCE, On Sun10/14/24 at 1530, For 1 dose $Given 10/14/2024 3:39 PM DIRECTOR VIDEO 60 mLs sodium chloride 0.9 % infusion at 100 mL/hr, Intravenous, CONTINUOUS, Starting on Sun10/23/24 at 1600, Until Sun10/24/24 at 0659 $New Bag 10/23/2024 10:43 PM DIRECTOR VIDEO 100 mL/hr $New Bag 10/23/2024 3:59 PM DIRECTOR VIDEO 100 mL/hr sodium chloride 0.9 % infusion at 75 mL/hr, Intravenous, CONTINUOUS, Start once urine studies collected, Starting on Sun10/13/24 at 1600, Until Sun10/14/24 at 0253 $New Bag 10/13/2024 6:39 PM DIRECTOR VIDEO 75 mL/hr sodium chloride 0.9% BOLUS 1,000 mL Intravenous, 1,000 mL, ONCE, at 2,000 mL/hr, Administer over 30 Minutes, On Sun10/12/24 at 1050, For 1 dose $New Bag 10/12/2024 11:08 AM DIRECTOR VIDEO 1,000 mLs 2000 mL/hr sodium chloride 0.9% BOLUS 1,000 mL Intravenous, 1,000 mL, ONCE, at 500 mL/hr, Administer over 2 Hours, On Teresa 10/23/24 at 1300, For 1 dose $New Bag 10/23/2024 2:12 PM DIRECTOR VIDEO 1,000 mLs 500 mL/hr sodium chloride for CT scan flush use Intravenous, 100 mL, ONCE, On Sun10/12/24 at 1210, For 1 dose, This entry is for use by Radiology to intermittently used as a flush in patients receiving a CT scan. $Given 10/12/2024 12:12 PM DIRECTOR VIDEO 64 mLs tiZANidine (ZANAFLEX) tablet 2-4 mg 2-4 mg, Oral, EVERY 8 HOURS PRN, muscle spasms, Starting on Sun10/13/24 at 1548 $Given 10/28/2024 9:10 PM CDT 4 mg $Given 10/28/2024 10:53 AM CDT 4 mg $Given 10/23/2024 9:21 PM DIRECTOR VIDEO 2 mg vancomycin (VANCOCIN) 1,750 mg in 0.9% NaCl 517.5 mL intermittent infusion Routine, 1,750 mg, Intravenous, ONCE, On Sun10/14/24 at 1300, For 1 dose, Infuse doses less than 1,250 mg over 1 hour. Infuse doses between 1,250 mg and less than 1,750 mg over 90 minutes. Infuse doses 1,750 mg and above over 2 hours., Indications: Community Acquired PneumoniaIndications:Community Acquired Pneumonia $New Bag 10/14/2024 1:59 PM DIRECTOR VIDEO 1,750 mg documented in this encounter Active and Recently Administered Medications Times are shown in CDT. Scheduled Medication Order 10/27/2024 10/28/2024 10/29/2024 amiodarone (PACERONE) tablet 200 mg 200 mg, Oral, 2 TIMES DAILY, First dose on Teresa 10/16/24 at 2200, Tablets can be crushed and given via enteral route. Avoid grapefruit juice during oral amiodarone treatment. 0525 ($Given - Provider: Jen Preciado RN)1927 ($Given - Provider: Anthony Huang, MENDEL) 0654 ($Given - Provider: Mckenna Szymanski, MENDEL)1848 ($Given - Provider: Rich Ko RN) 0538 ($Given - Provider: Anabelle Friedman RN) apixaban ANTICOAGULANT (ELIQUIS) tablet 5 mg 5 mg, Oral, 2 TIMES DAILY, First dose on Sun10/24/24 at 2100, Indications: Afib-non valvular 0900 ($Given - Provider: Magno Dawson RN)2227 ($Given - Provider: Anthony Huang RN) 0939 ($Given - Provider: Rich Ko RN)2113 ($Given - Provider: Anabelle Friedman, MENDEL) 0828 ($Given - Provider: Thomas Noland RN) atorvastatin (LIPITOR) tablet 40 mg 40 mg, Oral, EVERY EVENING, First dose on Sun10/27/24 at 2000 1927 ($Given - Provider: Anthony Huang, MENDEL) 211 (Not Given - Provider: Anabelle Friedman RN - Reason: Patient/family refused - Comment: Says he does not take this and takes Zetia in place.) CT scan flush (COMPLETED) Intravenous, 100 mL, ONCE, On Sun10/27/24 at 1400, For 1 dose, This entry is for use by Radiology to intermittently used as a flush in patients receiving a CT scan. 1341 ($Given - Provider: GEORGETTE Paul) diclofenac (VOLTAREN) 1 % topical gel 2 g 2 g, Topical, 4 TIMES DAILY, First dose on Sun10/13/24 at 1600, Apply to right lower chest, flank. Use supplied dosing card to measure dose. 0902 ($Given - Provider: Magno Dawson RN)1522 (Not Given - Provider: Magno Dawson RN - Reason: Patient/family refused)1720 ($Given - Provider: Anthony Huang RN)2038 (Not Given - Provider: Anthony Huang RN - Reason: Patient/family refused) 0947 ($Given - Provider: Rich Ko RN)1509 ($Given - Provider: Rich Ko RN)1636 ($Given - Provider: Rich Ko RN)2126 ($Given - Provider: Anabelle Friedman RN) 0942 (Not Given - Provider: Thomas Noland RN - Reason: Patient/family refused)1200 (Canceled Entry - Provider: Orders Generic Provider - Comment: Automatically canceled at discontinue of medication order) ezetimibe (ZETIA) tablet 10 mg 10 mg, Oral, EVERY EVENING, First dose on Sun10/12/24 at 1999 1927 ($Given - Provider: Anthony Huang RN) 2111 ($Given - Provider: Anabelle Friedman RN) guaiFENesin (MUCINEX) 12 hr tablet 600 mg 600 mg, Oral, 2 TIMES DAILY, First dose on Sun10/13/24 at 1999, DO NOT CRUSH. 0900 ($Given - Provider: Magno Dawson RN)1927 ($Given - Provider: Anthony Huang RN) 0939 ($Given - Provider: Rich Ko RN)2113 ($Given - Provider: Anabelle Friedman RN) 0827 ($Given - Provider: Thomas Noland RN) insulin aspart (NovoLOG) injection (RAPID ACTING) Subcutaneous, 3 TIMES DAILY WITH MEALS, First dose on Sun10/13/24 at 0930, DOSE: 2 units per 10 grams of carbohydrate. Only chart total amount of units given. Administering insulin within 5 minutes of the start of the meal is ideal. Administer insulin no more than 30 minutes after the start of the meal, unless directed otherwise by provider. If pre-prandial glucose is less than 60 mg/dL, treat per hypoglycemia protocol prior to administration of mealtime insulin dose. 1117 ($Given - Provider: Magno Dawson RN)1522 (Not Given - Provider: Magno Dawson RN - Reason: NPO)1720 ($Given - Provider: Anthony Huang RN - Comment: Carb Count-18) 0944 ($Given - Provider: Rich Ko RN - Comment: per pt request)1508 ($Given - Provider: Rich Ko RN)1807 ($Given - Provider: Rich Ko RN - Comment: 60 carbs) 0944 ($Given - Provider: Thomas Noland RN - Comment: 95 carbs)1354 ($Given - Provider: Thomas Noland RN - Comment: 80 carbs / 10 x 2) insulin aspart (NovoLOG) injection (RAPID ACTING) 1-10 Units, Subcutaneous, 3 TIMES DAILY BEFORE MEALS, First dose on Teresa 10/16/24 at 0800, Correction Scale - HIGH INSULIN RESISTANCE DOSING Do Not give Correction Insulin if Pre-Meal BG less than 140. For Pre-Meal BG 140 - 164 give 1 unit. For Pre-Meal BG 165 - 189 give 2 units. For Pre-Meal BG 190 - 214 give 3 units. For Pre-Meal BG 215 - 239 give 4 units. For Pre-Meal BG 240 - 264 give 5 units. For Pre-Meal BG 265 - 289 give 6 units. For Pre-Meal BG 290 - 314 give 7 units. For Pre-Meal BG 315 - 339 give 8 units. For Pre-Meal BG 340 - 364 give 9 units. For Pre-Meal BG greater than or equal to 365 give 10 units To be given with prandial insulin, and based on pre-meal blood glucose. Administering insulin within 5 minutes of the start of the meal is ideal. Administer insulin no more than 30 minutes after the start of the meal, unless directed otherwise by provider. Notify provider if glucose greater than or equal to 350 mg/dL after administration of correction dose. 0910 (Not Given - Provider: Magno Dawson RN - Reason: Order parameters not met)1521 ($Given - Provider: Magno Dawson RN)1720 ($Given - Provider: Anthony uHang RN - Comment: [id number]) 0944 (Not Given - Provider: Rich Ko RN - Reason: Order parameters not met)1507 ($Given - Provider: Rich Ko RN - Comment: given when eating)1721 ($Given - Provider: Rich Ko RN - Comment: [id number]) 1009 (Not Given - Provider: Thomas Noland RN - Reason: Order parameters not met)1354 (Not Given - Provider: Thomas Noland RN - Reason: Other) insulin aspart (NovoLOG) injection (RAPID ACTING) 1-7 Units, Subcutaneous, AT BEDTIME, First dose on Teresa 10/16/24 at 2200, HIGH INSULIN RESISTANCE DOSING Do Not give Bedtime Correction Insulin if BG less than 200. For BG 200 - 224 give 1 units. For BG 225 - 249 give 2 units. For BG 250 - 274 give 3 units. For BG 275 - 299 give 4 units. For BG 300 - 324 give 5 units. For BG 325 - 349 give 6 units. For BG greater than or equal to 350 give 7 units. Notify provider if glucose greater than or equal to 350 mg/dL after administration of correction dose. 2220 (Not Given - Provider: Anthony Huang RN - Reason: Order parameters not met - Comment: [id number]) 2210 (Not Given - Provider: Anabelle Friedman RN - Reason: Order parameters not met - Comment: BG 147) insulin glargine (LANTUS PEN) injection 30 Units 30 Units, Subcutaneous, AT BEDTIME, First dose (after last modification) on Sun10/17/24 at 2200 2234 ($Given - Provider: Anthony Huang RN - Comment: BG-199) 2214 ($Given - Provider: Anabelle Friedman RN) iopamidol (ISOVUE-370) solution 500 mL (COMPLETED) 500 mL, Intravenous, ONCE, On Sun10/27/24 at 1400, For 1 dose 1341 ($Given - Provider: GEORGETTE Paul) lamoTRIgine (LaMICtal) tablet 300 mg 300 mg, Oral, 2 TIMES DAILY, First dose on Sun10/12/24 at 2000 0900 ($Given - Provider: Magno Dawson, MENDEL)1927 ($Given - Provider: Anthony Huang RN) 0938 ($Given - Provider: Rich Ko RN)2112 ($Given - Provider: Anabelle Friedman RN) 0827 ($Given - Provider: Thomas Noland, MENDEL) Lidocaine (LIDOCARE) 4 % Patch 1 patch 1 patch, Transdermal, Administer over 12 Hours, EVERY 24 HOURS 0800, First dose on Sun10/12/24 at 1525, Apply patch(s) to ribs. To prevent lidocaine toxicity, patient should be patch free for 12 hrs daily. Patches may be cut to smaller size prior to removing release liner. Reminder: Remove previous patch before applying new patch. NEVER APPLY HEAT OVER PATCH which increases absorption and may lead to local anesthetic toxicity. Do not apply over area where liposomal bupivacaine was injected for 96 hours post injection. Avoid heat exposure to application site or surrounding areas. This includes heat from external sources, such as heating pads, electric blankets, or other equipment. 0900 ($Patch/Med Applied - Provider: Magno Dawson RN)2228 (Patch/Med Removed - Provider: Anthony Huang RN) 0942 ($Patch/Med Applied - Provider: Rich Ko RN)2129 (Patch/Med Removed - Provider: Anabelle Friedman RN) 0826 ($Patch/Med Applied - Provider: Thomas Noland, MENDEL)1400 (Due: Patch/Med Removed - Provider: Orders Generic Provider - Comment: Time automatically adjusted from order being discontinued) lisinopril (ZESTRIL) tablet 30 mg 30 mg, Oral, DAILY, First dose on Sun10/13/24 at 0800, HOLD WITH HR < 60 of SBP < 130 0902 (Not Given - Provider: Magno Dawson RN - Reason: Order parameters not met) 0938 ($Given - Provider: Rich Ko RN) 0828 ($Given - Provider: Thomas Noland, MENDEL) magnesium oxide (MAG-OX) tablet 400 mg (COMPLETED) 400 mg, Oral, EVERY 4 HOURS, First dose on Sun10/27/24 at 0930, For 2 doses, Avoid using oral magnesium if patient has current diarrhea. Magnesium level 1.6-2 mg/dL Administer 400 mg ORAL magnesium x 2 doses and recheck magnesium level the AM after the last ORAL dose. Ordered from the Magnesium replacement order set., Magnesium Replacement: Magnesium level 1.6-2 mg/dL, Recheck: Magnesium level next AM 1117 ($Given - Provider: Magno Dawson RN)1522 (Not Given - Provider: Magno Dawson RN - Reason: Patient/family refused) magnesium oxide (MAG-OX) tablet 400 mg (COMPLETED) 400 mg, Oral, EVERY 4 HOURS, First dose on Sun10/28/24 at 0800, For 2 doses, Avoid using oral magnesium if patient has current diarrhea. Magnesium level 1.6-2 mg/dL Administer 400 mg ORAL magnesium x 2 doses and recheck magnesium level the AM after the last ORAL dose. Ordered from the Magnesium replacement order set., Magnesium Replacement: Magnesium level 1.6-2 mg/dL, Recheck: Magnesium level next AM 0939 ($Given - Provider: Rich Ko RN)1335 ($Given - Provider: Rich Ko RN) magnesium oxide (MAG-OX) tablet 400 mg 400 mg, Oral, EVERY 4 HOURS, First dose on Sun10/29/24 at 0830, For 2 doses, Avoid using oral magnesium if patient has current diarrhea. Magnesium level 1.6-2 mg/dL Administer 400 mg ORAL magnesium x 2 doses and recheck magnesium level the AM after the last ORAL dose. Ordered from the Magnesium replacement order set., Magnesium Replacement: Magnesium level 1.6-2 mg/dL, Recheck: Magnesium level next AM 0944 ($Given - Provider: Thomas Noland RN)1230 (Canceled Entry - Provider: Orders Generic Provider - Comment: Automatically canceled at discontinue of medication order) metFORMIN (GLUCOPHAGE) tablet 500 mg 500 mg, Oral, DAILY WITH SUPPER, First dose on Sun10/13/24 at 1700, If the patient receives intravenous, iodinated contrast and patient GFR is greater than 60 mL/min/1.7m2, continue metformin. Contact provider for 'hold' or 'no hold' instructions if no GFR or if GFR is less than 60 mL/min/1.7m2. 1615 ($Given - Provider: Anthony Huang RN) 1810 ($Given - Provider: Rich Ko RN) metoprolol succinate ER (TOPROL XL) 24 hr tablet 50 mg 50 mg, Oral, 2 TIMES DAILY, First dose on Sun10/18/24 at 0900, DO NOT CRUSH. Tablet may be split in half along score line. HOLD for SBP<110 or HR<55 0900 ($Given - Provider: Magno Dawson RN)2227 ($Given - Provider: Anthony Huang, RN) 0939 ($Given - Provider: Rich Ko RN)2113 ($Given - Provider: Anabelle Friedman, RN) 0827 ($Given - Provider: Thomas Noland, MENDEL) miconazole (MICATIN) 2 % powder Topical, 2 TIMES DAILY, First dose on Sun10/19/24 at 2100, Apply to skin folds 0901 ($Given - Provider: Magno Dawson RN)2229 (Not Given - Provider: Anthony Huang RN - Reason: Patient/family refused) 0948 ($Given - Provider: Rich Ko RN)2126 ($Given - Provider: Anabelle Friedman RN) 1101 (Not Given - Provider: Thomas Noland RN - Reason: Patient/family refused) multivitamin w/minerals (THERA-VIT-M) tablet 1 tablet 1 tablet, Oral, DAILY, First dose on Sun10/15/24 at 1500 0900 ($Given - Provider: Magno Dawson RN) 0939 ($Given - Provider: Rich Ko, MENDEL) 0827 ($Given - Provider: Thomas Noland, MENDEL) piperacillin-tazobactam (ZOSYN) 3.375 g vial to attach to NS 100 mL bag () Routine, 3.375 g, Intravenous, EVERY 6 HOURS, First dose on Sun10/14/24 at 1230, For 58 doses, Lactated Ringer's solution is not compatible with piperacillin-tazobactam for injection., Indications: Community Acquired Pneumonia 0352 ($New Bag - Provider: Jen Preciado RN)0906 ($New Bag - Provider: Magno Dawson RN)1615 ($New Bag - Provider: Anthony Huang RN)2227 ($New Bag - Provider: Anthony Huang, MENDEL) 0420 ($New Bag - Provider: Mckenna Szymanski RN)0957 ($New Bag - Provider: Rich Ko RN)1631 ($New Bag - Provider: Rich Ko RN)2125 ($New Bag - Provider: Anabelle Friedman RN) psyllium (METAMUCIL/KONSYL) capsule 5 capsule 5 capsule, Oral, DAILY, First dose on Sun10/16/24 at 0900, Each capsule should be administered individually with 8 ounces of fluid. 0900 ($Given - Provider: Magno Dawson RN) 0939 ($Given - Provider: Rich Ko RN) 0827 ($Given - Provider: Thomas Noland RN) sodium chloride (PF) 0.9% PF flush 3 mL 3 mL, Intracatheter, EVERY 8 HOURS, First dose on Sun10/15/24 at 1500, to lock peripheral IV dormant line 0011 ($Given - Provider: Jen Preciado RN)0902 ($Given - Provider: Magno Dawson RN)1618 ($Given - Provider: Anthony Huang RN)2341 ($Given - Provider: Mckenna Szymanski RN) 0948 ($Given - Provider: Rich Ko RN)1636 ($Given - Provider: Rich Ko RN) 0119 (Not Given - Provider: Anabelle Friedman RN - Reason: Other - Comment: Given PRN with assessment)1100 (Not Given - Provider: Thomas Noland RN - Reason: Other) PRN Medication Order 10/27/2024 10/28/2024 10/29/2024 acetaminophen (TYLENOL) Suppository 650 mg(Linked Group 1) 650 mg, Rectal, EVERY 4 HOURS PRN, mild pain, other, and adjunct with moderate or severe pain or per patient request, Starting on 10/12/24 at 1522, Alternate with ibuprofen if ordered. Maximum acetaminophen dose from all sources = 75 mg/kg/day not to exceed 4 grams/day. acetaminophen (TYLENOL) tablet 650 mg(Linked Group 1) 650 mg, Oral, EVERY 4 HOURS PRN, mild pain, other, and adjunct with moderate or severe pain or per patient request, Starting on 10/12/24 at 1522, Alternate with ibuprofen if ordered. Maximum acetaminophen dose from all sources = 75 mg/kg/day not to exceed 4 grams/day. benzonatate (TESSALON) capsule 100 mg 100 mg, Oral, 3 TIMES DAILY PRN, cough, Starting on Sun10/14/24 at 1224, Swallow whole. Do not chew, crush or break. 0010 ($Given - Provider: Jen Preciado, MENDEL)2233 ($Given - Provider: Anthony Huang RN) bisacodyl (DULCOLAX) suppository 10 mg 10 mg, Rectal, DAILY PRN, constipation, Starting on Sun10/15/24 at 1032, Hold for loose stools. calcium carbonate (TUMS) chewable tablet 1,000 mg 1,000 mg, Oral, 4 TIMES DAILY PRN, heartburn, Starting on Sun10/12/24 at 1522 carboxymethylcellulose PF (REFRESH PLUS) 0.5 % ophthalmic solution 1 drop 1 drop, Both Eyes, EVERY 1 HOUR PRN, dry eyes, Starting on Sun10/15/24 at 1032 chlorproMAZINE (THORAZINE) tablet 50 mg 50 mg, Oral, 3 TIMES DAILY PRN, hiccups, Starting on Sun10/22/24 at 0922 dextrose 50 % injection 25-50 mL(Linked Group 2) 25-50 mL, Intravenous, EVERY 15 MIN PRN, low blood sugar, Administer over 1-5 Minutes, Starting on Sun10/12/24 at 1505, Use if have IV access, BG less than 70 mg/dL and meet dose criteria below: Dose if conscious and alert (or disorientated) and NPO = 25 mL Dose if unconscious / not alert = 50 mL Give first dose for initial blood glucose less than 70 mg/dL. If blood glucose at 15 minute recheck is less than or equal to 80 mg/dL continue to administer carbohydrate treatment every 15 minutes, as needed, based on blood glucose and assessment parameters until blood glucose level is above 80 mg/dL x 2 consecutive 15 minute checks. glucagon injection 1 mg(Linked Group 2) 1 mg, Subcutaneous, EVERY 15 MIN PRN, low blood sugar, May repeat x 1 only, Starting on Sun10/12/24 at 1505, May give SQ or IM. ONLY use glucagon IF patient has NO IV access AND is UNABLE to swallow AND blood glucose is LESS than or EQUAL to 50 mg/dL. glucose gel 15-30 g(Linked Group 2) 15-30 g, Oral, EVERY 15 MIN PRN, low blood sugar, Starting on Sun10/12/24 at 1505, Give first dose for initial blood glucose less than 70 mg/dL per the dosing instructions below. If blood glucose at 15 minute rechecks is still less than or equal to 80 mg/dL, continue to administer doses per blood glucose parameters every 15 minutes, as needed, until blood glucose level is at or above 80 mg/dL x 2 consecutive 15 minute checks. Dosing Instructions: ~If patient is conscious and able to swallow and NO enteral tube For initial BG 51-69mg/dL OR 15 minute recheck BG 51- 80 mg/dL - give 15 g For BG less than or equal to 50 mg/dL - give 30 g ~ If Enteral tube For initial BG 51-69mg/dL OR 15 minute recheck BG 51- 80 mg/dL - give apple juice 120 mL (4 oz or 15 g of CHO) via enteral tube For BG less than or equal to 50 mg/dL - Give apple juice 240 mL (8 oz or 30 g of CHO) via enteral tube ~Oral gel is preferable for conscious and able to swallow patient. ~IF gel unavailable or patient refuses may provide apple juice per Enteral tube dosing instructions. Document juice on I and O flowsheet. guaiFENesin-dextromethorphan (ROBITUSSIN DM) 100-10 MG/5ML syrup 10 mL 10 mL, Oral, EVERY 4 HOURS PRN, cough, Starting on 10/25/24 at 2338 hydrOXYzine HCl (ATARAX) tablet 25 mg 25 mg, Oral, EVERY 6 HOURS PRN, other, adjuvant pain, Starting on 10/13/24 at 0849, Start with 25 mg for the initial dose. If the 25 mg dose is ineffective, increase to the 50 mg dose at the next administration time and maintain further doses at 50 mg. If the 50 mg dose is ineffective, contact the provider. lidocaine (LMX4) cream Topical, EVERY 1 HOUR PRN, pain, with VAD insertion, Starting on Sun10/15/24 at 1446, Apply at least 30 minutes prior to VAD insertion in divided doses as needed for size of site for insertion. MAX Dose: 2.5 g ( of 5 g tube) Do NOT give if patient has a history of allergy to any local anesthetic or any chente product. Do NOT use both lidocaine intradermal/subcutaneous injection and the lidocaine cream on the same site. lidocaine 1 % 0.1-1 mL 0.1-1 mL, Other, EVERY 1 HOUR PRN, mild pain with VAD insertion, Starting on Sun10/15/24 at 1446, MAX dose 1 mL subcutaneous OR intradermal along the side of the vein in divided doses as needed for VAD insertion. Do NOT give if patient has a history of allergy to any local anesthetic or any chente product. Do NOT use both lidocaine intradermal/subcutaneous injection and the lidocaine cream on the same site. melatonin tablet 3 mg 3 mg, Oral, AT BEDTIME PRN, sleep, Starting on Sun10/27/24 at 0215 0222 ($Given - Provider: Jen Preciado, RN) 2110 ($Given - Provider: Anabelle Friedman RN) metoprolol (LOPRESSOR) injection 5 mg 5 mg, Intravenous, EVERY 4 HOURS PRN, other, HR > 120, hold for SBP < 90, Starting on Sun10/17/24 at 1147 naloxone (NARCAN) injection 0.2 mg(Linked Group 3) 0.2 mg, Intravenous, EVERY 2 MIN PRN, opioid reversal, Starting on 10/12/24 at 2143, Administer intravenous route when available and notify provider when administered. For unintended sedation or respiratory depression if all of the below criteria are met: ~ respiratory rate LESS than or EQUAL to 8. ~SaO2 less than 92% and or/end-tidal CO2 is greater than 50. ~ the patient is receiving an opioid, has unintended sedations assessed as RASS (-3), and is currently not on mechanical ventilation. RASS scale moderate (-3) is movement or eye opening to voice but no eye contact. Patient Monitoring Once the patient has demonstrated a response to the naloxone, continue to monitor respiratory rate, depth, oxygen saturation and end-tidal CO2 (if available) every 15 minutes x 2, then every 30 minutes x 2, then every 1 hour x 1 after each naloxone dose. Consider transfer to ICU if patient respiratory parameters have not improved after 4 naloxone doses. naloxone (NARCAN) injection 0.2 mg(Linked Group 3) 0.2 mg, Intramuscular, EVERY 2 MIN PRN, opioid reversal, Starting on 10/12/24 at 2143, Administer intramuscular if an intravenous route is not available and notify provider when administered. For unintended sedation or respiratory depression if all of the below criteria are met: ~ respiratory rate LESS than or EQUAL to 8. ~SaO2 less than 92% and or/end-tidal CO2 is greater than 50. ~ the patient is receiving an opioid, has unintended sedations assessed as RASS (-3), and is currently not on mechanical ventilation. RASS scale moderate (-3) is movement or eye opening to voice but no eye contact. Patient Monitoring Once the patient has demonstrated a response to the naloxone, continue to monitor respiratory rate, depth, oxygen saturation and end-tidal CO2 (if available) every 15 minutes x 2, then every 30 minutes x 2, then every 1 hour x 1 after each naloxone dose. Consider transfer to ICU if patient respiratory parameters have not improved after 4 naloxone doses. naloxone (NARCAN) injection 0.4 mg(Linked Group 3) 0.4 mg, Intravenous, EVERY 2 MIN PRN, opioid reversal, Starting on 10/12/24 at 2143, Administer intravenous route when available and notify provider when administered. For unintended sedation or respiratory depression if all of the below criteria are met: ~ respiratory rate LESS than or EQUAL to 8. ~ SaO2 less than 92% and or/end-tidal CO2 is greater than 50. ~ the patient is receiving an opioid, has unintended sedation assessed as RASS (-4) or (-5) and patient is currently not on mechanical ventilation. RASS scale (-4) is deep sedation with no response to voice but movement or eye opening to physical stimulation. RASS scale (-5) is unarousable. Patient Monitoring Once the patient has demonstrated a response to the naloxone, continue to monitor respiratory rate, depth, oxygen saturation and end-tidal CO2 (if available) every 15 minutes x 2, then every 30 minutes x 2, then every 1 hour x 1 after each naloxone dose. Consider transfer to ICU if patient respiratory parameters have not improved after 4 naloxone doses. naloxone (NARCAN) injection 0.4 mg(Linked Group 3) 0.4 mg, Intramuscular, EVERY 2 MIN PRN, opioid reversal, Starting on 10/12/24 at 2143, Administer intramuscular if an intravenous route is not available and notify provider when administered. For unintended sedation or respiratory depression if all of the below criteria are met: ~ respiratory rate LESS than or EQUAL to 8. ~ SaO2 less than 92% and or/end-tidal CO2 is greater than 50. ~ the patient is receiving an opioid, has unintended sedation assessed as RASS (-4) or (-5) and patient is currently not on mechanical ventilation. RASS scale (-4) is deep sedation with no response to voice but movement or eye opening to physical stimulation. RASS scale (-5) is unarousable. Patient Monitoring Once the patient has demonstrated a response to the naloxone, continue to monitor respiratory rate, depth, oxygen saturation and end-tidal CO2 (if available) every 15 minutes x 2, then every 30 minutes x 2, then every 1 hour x 1 after each naloxone dose. Consider transfer to ICU if patient respiratory parameters have not improved after 4 naloxone doses. ondansetron (ZOFRAN ODT) ODT tab 4 mg(Linked Group 4) 4 mg, Oral, EVERY 6 HOURS PRN, nausea/vomiting - 1st line, Starting on 10/12/24 at 1522, This is Step 1 of nausea and vomiting management. If nausea not resolved in 15 minutes, go to Step 2 prochlorperazine (COMPAZINE). With dry hands, peel back foil backing and gently remove tablet. Do not push oral disintegrating tablet through foil backing. Administer immediately on tongue and oral disintegrating tablet dissolves in seconds, then swallow with saliva. Liquid not required. ondansetron (ZOFRAN) injection 4 mg(Linked Group 4) 4 mg, Intravenous, EVERY 6 HOURS PRN, nausea/vomiting - 1st line, Administer over 2-5 Minutes, Starting on 10/12/24 at 1522, Give IF patient unable to tolerate oral medication. This is Step 1 of nausea and vomiting management. If nausea not resolved in 15 minutes, go to Step 2 prochlorperazine (COMPAZINE). oxyCODONE (ROXICODONE) tablet 5 mg 5 mg, Oral, EVERY 4 HOURS PRN, severe pain, Starting on 10/13/24 at 0453 2112 ($Given - Provider: Anabelle Friedman RN) senna-docusate (SENOKOT-S/PERICOLACE) 8.6-50 MG per tablet 1 tablet(Linked Group 5) 1 tablet, Oral, 2 TIMES DAILY PRN, constipation, Starting on 10/12/24 at 1522, If no bowel movement in 24 hours, increase to 2 tablets by mouth. IF more than 1 constipation PRN medication is ordered, administer step-neumann as indicated, moving to the next step ONLY if prior step ineffective. Step 1: senna-docusate (SENOKOT-S; PERICOLACE) OR bisacodyl (DULCOLAX) EC tablet Step 2: polyethylene glycol (MIRALAX/GLYCOLAX) Step 3: bisacodyl (DULCOLAX) suppository Step 4: enema Hold for loose stools. senna-docusate (SENOKOT-S/PERICOLACE) 8.6-50 MG per tablet 2 tablet(Linked Group 5) 2 tablet, Oral, 2 TIMES DAILY PRN, constipation, Starting on 10/12/24 at 1522, IF more than 1 constipation PRN medication is ordered, administer step-neumann as indicated, moving to the next step ONLY if prior step ineffective. Step 1: senna-docusate (SENOKOT-S; PERICOLACE) OR bisacodyl (DULCOLAX) EC tablet Step 2: polyethylene glycol (MIRALAX/GLYCOLAX) Step 3: bisacodyl (DULCOLAX) suppository Step 4: enema Hold for loose stools. sodium chloride (PF) 0.9% PF flush 3 mL 3 mL, Intracatheter, EVERY 1 MIN PRN, line flush, other, to ensure patency or to lock dormant line, Starting on Sun10/15/24 at 1446 2126 ($Given - Provider: Anabelle Friedman RN) tiZANidine (ZANAFLEX) tablet 2-4 mg 2-4 mg, Oral, EVERY 8 HOURS PRN, muscle spasms, Starting on Sun10/13/24 at 1548 1053 ($Given - Provider: Rich Ko RN)2110 ($Given - Provider: Anabelle Friedman RN) Linked Groups Order Group 1: acetaminophen (TYLENOL) tablet 650 mgJump to med 650 mg, Oral, EVERY 4 HOURS PRN, mild pain, other, and adjunct with moderate or severe pain or per patient request, Starting on 10/12/24 at 1522, Alternate with ibuprofen if ordered. Maximum acetaminophen dose from all sources = 75 mg/kg/day not to exceed 4 grams/day. Or acetaminophen (TYLENOL) Suppository 650 mgJump to med 650 mg, Rectal, EVERY 4 HOURS PRN, mild pain, other, and adjunct with moderate or severe pain or per patient request, Starting on 10/12/24 at 1522, Alternate with ibuprofen if ordered. Maximum acetaminophen dose from all sources = 75 mg/kg/day not to exceed 4 grams/day. Group 2: glucose gel 15-30 gJump to med 15-30 g, Oral, EVERY 15 MIN PRN, low blood sugar, Starting on 10/12/24 at 1505, Give first dose for initial blood glucose less than 70 mg/dL per the dosing instructions below. If blood glucose at 15 minute rechecks is still less than or equal to 80 mg/dL, continue to administer doses per blood glucose parameters every 15 minutes, as needed, until blood glucose level is at or above 80 mg/dL x 2 consecutive 15 minute checks. Dosing Instructions: ~If patient is conscious and able to swallow and NO enteral tube For initial BG 51-69mg/dL OR 15 minute recheck BG 51- 80 mg/dL - give 15 g For BG less than or equal to 50 mg/dL - give 30 g ~ If Enteral tube For initial BG 51-69mg/dL OR 15 minute recheck BG 51- 80 mg/dL - give apple juice 120 mL (4 oz or 15 g of CHO) via enteral tube For BG less than or equal to 50 mg/dL - Give apple juice 240 mL (8 oz or 30 g of CHO) via enteral tube ~Oral gel is preferable for conscious and able to swallow patient. ~IF gel unavailable or patient refuses may provide apple juice per Enteral tube dosing instructions. Document juice on I and O flowsheet. Or dextrose 50 % injection 25-50 mLJump to med 25-50 mL, Intravenous, EVERY 15 MIN PRN, low blood sugar, Administer over 1-5 Minutes, Starting on 10/12/24 at 1505, Use if have IV access, BG less than 70 mg/dL and meet dose criteria below: Dose if conscious and alert (or disorientated) and NPO = 25 mL Dose if unconscious / not alert = 50 mL Give first dose for initial blood glucose less than 70 mg/dL. If blood glucose at 15 minute recheck is less than or equal to 80 mg/dL continue to administer carbohydrate treatment every 15 minutes, as needed, based on blood glucose and assessment parameters until blood glucose level is above 80 mg/dL x 2 consecutive 15 minute checks. Or glucagon injection 1 mgJump to med 1 mg, Subcutaneous, EVERY 15 MIN PRN, low blood sugar, May repeat x 1 only, Starting on 10/12/24 at 1505, May give SQ or IM. ONLY use glucagon IF patient has NO IV access AND is UNABLE to swallow AND blood glucose is LESS than or EQUAL to 50 mg/dL. Group 3: naloxone (NARCAN) injection 0.2 mgJump to med 0.2 mg, Intravenous, EVERY 2 MIN PRN, opioid reversal, Starting on 10/12/24 at 2143, Administer intravenous route when available and notify provider when administered. For unintended sedation or respiratory depression if all of the below criteria are met: ~ respiratory rate LESS than or EQUAL to 8. ~SaO2 less than 92% and or/end-tidal CO2 is greater than 50. ~ the patient is receiving an opioid, has unintended sedations assessed as RASS (-3), and is currently not on mechanical ventilation. RASS scale moderate (-3) is movement or eye opening to voice but no eye contact. Patient Monitoring Once the patient has demonstrated a response to the naloxone, continue to monitor respiratory rate, depth, oxygen saturation and end-tidal CO2 (if available) every 15 minutes x 2, then every 30 minutes x 2, then every 1 hour x 1 after each naloxone dose. Consider transfer to ICU if patient respiratory parameters have not improved after 4 naloxone doses. Or naloxone (NARCAN) injection 0.4 mgJump to med 0.4 mg, Intravenous, EVERY 2 MIN PRN, opioid reversal, Starting on 10/12/24 at 2143, Administer intravenous route when available and notify provider when administered. For unintended sedation or respiratory depression if all of the below criteria are met: ~ respiratory rate LESS than or EQUAL to 8. ~ SaO2 less than 92% and or/end-tidal CO2 is greater than 50. ~ the patient is receiving an opioid, has unintended sedation assessed as RASS (-4) or (-5) and patient is currently not on mechanical ventilation. RASS scale (-4) is deep sedation with no response to voice but movement or eye opening to physical stimulation. RASS scale (-5) is unarousable. Patient Monitoring Once the patient has demonstrated a response to the naloxone, continue to monitor respiratory rate, depth, oxygen saturation and end-tidal CO2 (if available) every 15 minutes x 2, then every 30 minutes x 2, then every 1 hour x 1 after each naloxone dose. Consider transfer to ICU if patient respiratory parameters have not improved after 4 naloxone doses. Or naloxone (NARCAN) injection 0.2 mgJump to med 0.2 mg, Intramuscular, EVERY 2 MIN PRN, opioid reversal, Starting on 10/12/24 at 2143, Administer intramuscular if an intravenous route is not available and notify provider when administered. For unintended sedation or respiratory depression if all of the below criteria are met: ~ respiratory rate LESS than or EQUAL to 8. ~SaO2 less than 92% and or/end-tidal CO2 is greater than 50. ~ the patient is receiving an opioid, has unintended sedations assessed as RASS (-3), and is currently not on mechanical ventilation. RASS scale moderate (-3) is movement or eye opening to voice but no eye contact. Patient Monitoring Once the patient has demonstrated a response to the naloxone, continue to monitor respiratory rate, depth, oxygen saturation and end-tidal CO2 (if available) every 15 minutes x 2, then every 30 minutes x 2, then every 1 hour x 1 after each naloxone dose. Consider transfer to ICU if patient respiratory parameters have not improved after 4 naloxone doses. Or naloxone (NARCAN) injection 0.4 mgJump to med 0.4 mg, Intramuscular, EVERY 2 MIN PRN, opioid reversal, Starting on 10/12/24 at 2143, Administer intramuscular if an intravenous route is not available and notify provider when administered. For unintended sedation or respiratory depression if all of the below criteria are met: ~ respiratory rate LESS than or EQUAL to 8. ~ SaO2 less than 92% and or/end-tidal CO2 is greater than 50. ~ the patient is receiving an opioid, has unintended sedation assessed as RASS (-4) or (-5) and patient is currently not on mechanical ventilation. RASS scale (-4) is deep sedation with no response to voice but movement or eye opening to physical stimulation. RASS scale (-5) is unarousable. Patient Monitoring Once the patient has demonstrated a response to the naloxone, continue to monitor respiratory rate, depth, oxygen saturation and end-tidal CO2 (if available) every 15 minutes x 2, then every 30 minutes x 2, then every 1 hour x 1 after each naloxone dose. Consider transfer to ICU if patient respiratory parameters have not improved after 4 naloxone doses. Group 4: ondansetron (ZOFRAN ODT) ODT tab 4 mgJump to med 4 mg, Oral, EVERY 6 HOURS PRN, nausea/vomiting - 1st line, Starting on 10/12/24 at 1522, This is Step 1 of nausea and vomiting management. If nausea not resolved in 15 minutes, go to Step 2 prochlorperazine (COMPAZINE). With dry hands, peel back foil backing and gently remove tablet. Do not push oral disintegrating tablet through foil backing. Administer immediately on tongue and oral disintegrating tablet dissolves in seconds, then swallow with saliva. Liquid not required. Or ondansetron (ZOFRAN) injection 4 mgJump to med 4 mg, Intravenous, EVERY 6 HOURS PRN, nausea/vomiting - 1st line, Administer over 2-5 Minutes, Starting on 10/12/24 at 1522, Give IF patient unable to tolerate oral medication. This is Step 1 of nausea and vomiting management. If nausea not resolved in 15 minutes, go to Step 2 prochlorperazine (COMPAZINE). Group 5: senna-docusate (SENOKOT-S/PERICOLACE) 8.6-50 MG per tablet 1 tabletJump to med 1 tablet, Oral, 2 TIMES DAILY PRN, constipation, Starting on 10/12/24 at 1522, If no bowel movement in 24 hours, increase to 2 tablets by mouth. IF more than 1 constipation PRN medication is ordered, administer step-neumann as indicated, moving to the next step ONLY if prior step ineffective. Step 1: senna-docusate (SENOKOT-S; PERICOLACE) OR bisacodyl (DULCOLAX) EC tablet Step 2: polyethylene glycol (MIRALAX/GLYCOLAX) Step 3: bisacodyl (DULCOLAX) suppository Step 4: enema Hold for loose stools. Or senna-docusate (SENOKOT-S/PERICOLACE) 8.6-50 MG per tablet 2 tabletJump to med 2 tablet, Oral, 2 TIMES DAILY PRN, constipation, Starting on 10/12/24 at 1522, IF more than 1 constipation PRN medication is ordered, administer step-neumann as indicated, moving to the next step ONLY if prior step ineffective. Step 1: senna-docusate (SENOKOT-S; PERICOLACE) OR bisacodyl (DULCOLAX) EC tablet Step 2: polyethylene glycol (MIRALAX/GLYCOLAX) Step 3: bisacodyl (DULCOLAX) suppository Step 4: enema Hold for loose stools. documented in this encounter Additional Health Concerns Infection Onset Date Last Indicated Resolved Time Rule Out COVID-19 10/12/2024 10/12/2024 10/12/2024 11:31 AM DIRECTOR VIDEO documented as of this encounter Care Teams Instructional Technology Facilitator Relationship Specialty [place] [address] [place] [address] PCP - General Family Practice 11/21/16 Stephie Mahoney MD [address] [place] [id number] Endocrinology, Diabetes, and Metabolism 04/22/21 Fedreica Foster RN [address] [place] [address] [id number] Site Promotion Agent Diabetes Education 04/22/[address] [place] [id number] Site Promotion Agent Nutrition 04/22/21 Stephie Mahoney MD [address] [place] [id number] Assigned Endocrinology Provider 05/08/21 Olga Garcia, RN Specialty Direct Care Counselor INTERNAL MEDICINE - ENDOCRINOLOGY, DIABETES & METABOLISM 09/29/22 Junior Chavira MD [address] [place] [id number] Cardiovascular Disease 05/29/24 [place] [address] [place] [address] Assigned PCP 07/12/24 Junior Chavira MD [address] [facility] [address] [place] [id number] Assigned Heart and Vascular Provider 08/11/24 documented as of this encounter
--- OUTSIDE RECORDS SUMMARY | 2024-12-11 23:49 | XMS_ITS | Encounter Summary ---
Author Organization [facility] Address [address] [place] [address]. [place] [address] Care Team Providers Care Clinical Rehabilitation Specialist Name Role Phone Wilber Vidales MD Primary Care Provider [phone] Stephie Mahoney MD Unavailable [phone] Federica Foster RN Unavailable [phone] Unavailable [phone] Stephie Mahoney MD Unavailable [phone] Olga Garcia RN Unavailable [phone] Junior Chavira MD Unavailable [phone] Shantel Walker MD Unavailable [phone] Junior Chavira MD Unavailable [phone] Coni Dahliwal CNP Unavailable [phone] Anel Long NP Unavailable [phone] Angel Balbuena MD Unavailable [phone] Encounter Details Date Type Department Care Team (Late st Contact Info) Description 10/20/2024 [facility] [place] [address] [facility] 3rd [place] [address] Dinah Velazquez Social History Tobacco [...] How often do you attend chur or scientologist services? More than 4 times per year [...] Answer Date Recorded PHQ-2 Score 0 11/23/2023 [facility] - Occupational Stress Questionnaire Answer Date Recorded [...] you got money to buy more? No 10/12/2024 Within the past 12 months, d id the food you bought just not last and you didn t have money to get more? No 10/12/2024 Housing Stability Answer Date Recorded Do you have housing? (Nori rodriguez is defined as stable permanent housing and does not include staying outside in a car, in a tent, in an abandoned building, in an overnight mcfp, or couch-surfing.) Yes 10/12/2024 Are you worried about losing your housing? No 10/12/2024 Financial Resource Strain Answer Date R ecorded Within the past 12 months, h ave you or your family members you live with been unable to get utilities (heat, electricity) when it was really needed? No 10/12/2024 Transportation Needs Answer Date Record ed Within the past 12 months, h as lack of transportation kept you from medical appointments, getting your medicines, non-medical meetings or appointments, work, or from getting things that you need? No 10/12/2024 Interpersonal Safety Answer Date Record ed Do you feel physically and e motionally safe where you currently live? Yes 10/12/2024 Within the past 12 months, h ave you been hit, slapped, kicked or otherwise physically hurt by someone? No 10/12/2024 Within the past 12 months, h ave you been humiliated or emotionally abused in other ways by your partner or ex-partner? No 10/12/2024 Education Answer Date Recorded What is the highest level of school you have completed or the highest degree you have received? 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 Gender Identity Male 03/03/2019 9:24 PM CDT Sexual Orientation Straight 03/03/2019 9: 24 PM CDT documented as of this encounter Plan of Treatment Upcoming Encounters Date Type Department Care Team (Late st Contact Info) Description 12/17/2024 9:30 AM CDT [address] [address] 12/23/2024 4:00 PM CDT Office Visit [facility] [address] [facility] [address] [place] [phone] Cyrus Aleman MD 909 [place] [address] 01/27/2025 10:00 AM CDT Office Visit [facility] [address] [facility] [address] [place] [address] Anel Long, PUMP SERVICE SUPERVISOR [address] [place] [id number] Coni Dhaliwal, GLOVE EXAMINER [address] [place] [address] 04/14/2025 11:15 AM CDT Office Visit [facility] [address] [facility] [address] [place] [phone] Inessa Esteves DO [address] [place], [place] [address] 06/05/2025 12:30 PM CDT Office Visit [facility] [address] [address] Stephie Mahoney MD [address] [place] [address]605 11/13/2025 11:00 AM CDT Virtual Visit [facility] [address] [phone] Stephie Mahoney MD [address] [place] [address] [phone] documented as of this encounter Visit Diagnoses Not on filedocumented in this encounter Care Teams Clinical Rehabilitation Specialist Relationship Specialty [place] [address] [place] [address] PCP - General Family Practice 11/21/16 Stephie Mahoney MD [address] [place] [address] [phone] Endocrinology, Diabetes, and Metabolism 04/22/21 Federica Foster, RN [address] [place] [address] [id number] Fire Extinguisher Sprinkler Inspector Diabetes Education 04/22/[address] [facility] [address] [id number] Fire Extinguisher Sprinkler Inspector Nutrition 04/22/21 Stephie Mahoney MD [address] [place] [address] [id number] Assigned Endocrinology Provider 05/08/21 Olga Garcia, RN Specialty Director Of District Office INTERNAL MEDICINE - ENDOCRINOLOGY, DIABETES & METABOLISM 09/29/22 Junior Chavira MD [address] [place] [id number] Cardiovascular Disease 05/29/24 [place] [address] [place] [address] Assigned PCP 07/12/24 Junior Chavira MD [address] [place] [address] Assigned Heart and Vascular Provider 08/11/24 Coni Dhaliwal CNP [address] [place] [address] [place] [address] Nurse Practitioner Psychiatry & Neurology Vascular Neurology 11/04/24 nAel Long NP [address] [place] [address] Nurse Practitioner Psychiatry & Neurology Vascular Neurology 11/04/24 Angel Balbuena MD [address] [place], [place] [address]40[address] Assigned Heart and Vascular Surgical Provider 12/10/24 documented as of this encounter
[2024-12-11 23:50] VITALS: BP 197/120; PULSE 97; RESP 16; TEMP 36.7; O2SAT 96; BMI 26.5
--- OUTSIDE RECORDS SUMMARY | 2024-12-11 23:50 | XMS_ITS | Encounter Summary ---
Author Organization [facility] Address [address] [place] [address]. [place] [address] Care Team Providers Care Dean For Student Affairs Name Role Phone Wilber Vidales MD Primary Care Provider [phone] Stephie Mahoney MD Unavailable [phone] Federica Foster RN Unavailable [phone] Unavailable [phone] Stephie Mahoney MD Unavailable [phone] Olga Garcia RN Unavailable [phone] Junior Chavira MD Unavailable [phone] Shantel Walker MD Unavailable [phone] Junior Chavira MD Unavailable [phone] Coni Dhaliwal YOUTH ACCOMMODATION SUPPORT WORKER Unavailable [phone] Anel Long NP Unavailable [phone] Reason for Visit * Reason Onset Date Comments Refill Request 11/14/2024 Encounter Details Date Type Department Care Team (Late st Contact Info) Description [facility] [address] 3rd [place] [address] Olga Garcia, RN Refill Request Social History Tobacco Use Types [...] any clubs o r organizations such as yarsanism groups, unions, fraternal or athletic groups, or [...] PHQ-2 Score 0 11/14/2024 [facility]ational [facility] Questionnaire Answer Date [...] in an abandoned building, in an overnight senior care, or couch-surfing.) Yes 10/29/2024 Are you worried [...] AM CDT 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 Gender Identity Male 03/03/2019 9:24 PM CDT Sexual Orientation Straight 03/03/2019 9: 24 PM CDT documented as of this encounter Plan of Treatment Upcoming Encounters Date Type Department Care Team (Late st Contact Info) Description 12/17/2024 9:30 AM CDT [facility] [address] [place] [address] 12/23/2024 4:00 PM CDT Office Visit [facility] [address] [facility] 450 [place] [phone] Cyrus Aleman MD [address] [place] [address] 01/27/2025 10:00 AM CDT Office Visit [facility] [address] [facility] 200 [place] [phone] Anel Long, WOOD BOX MAKER [address] [place], [place] [address] Coni Dhaliwal, COREY [address] [facility] 450 [place], [place] [address] 04/14/2025 11:15 AM CDT Office Visit [facility] [address] [facility] [address] [place] [phone] Inessa Esteves DO [address] [facility] [address] [place], [place] [address] 06/05/2025 12:30 PM CDT Office Visit [facility] [address] [phone] Stephie Mahoney MD [address] [address] 11/13/2025 11:00 AM CDT Virtual Visit [facility] [address] [phone] Stephie Mahoney MD [address] 299505 documented as of this encounter Visit Diagnoses Diagnosis Type 1 diabetes mellitus with hyperglycemia (H) Type I (juvenile type) diabetes mellitus without mention of complication, not stated as uncontrolled documented in this encounter Care Teams Dean For Student Affairs Relationship Specialty [place] [address] [place] [address] PCP - General Family Practice 11/21/16 Stephie Mahoney MD [address] [place] [address] Endocrinology, Diabetes, and Metabolism 04/22/21 Federica Foster RN [address] [place] [address] Clinical Lab Specialist Diabetes Education 04/22/[address] [place] [address] Clinical Lab Specialist Nutrition 04/22/21 Stephie Mahoney MD [address] [place] [address] Assigned Endocrinology Provider 05/08/21 Olga Garcia RN Specialty Roustabout Pusher INTERNAL MEDICINE - ENDOCRINOLOGY, DIABETES & METABOLISM 09/29/22 Junior Chavira MD [address] [place] [id number] Cardiovascular Disease 05/29/24 [place] [address] [place] [address] Assigned PCP 07/12/24 Junior Chavira MD [address] [place] [id number] Assigned Heart and Vascular Provider 08/11/24 Coni Dhaliwal, YOUTH ACCOMMODATION SUPPORT WORKER [address] [place] [id number] Nurse Practitioner Psychiatry & Neurology Vascular Neurology 11/04/24 Anel Long NP [address] [place] [id number] Nurse Practitioner Psychiatry & Neurology Vascular Neurology 11/04/24 documented as of this encounter
--- OUTSIDE RECORDS SUMMARY | 2024-12-11 23:50 | XMS_ITS | Encounter Summary ---
Author Organization [facility] Address [address] [place] [address]. [place] [address] Care Team Providers Care Order Management Specialist Name Role Phone Wilber Vidales MD Primary Care Provider [phone] Stephie Mahoney MD Unavailable [phone] Federica Foster RN Unavailable [phone] Unavailable [phone] Stephie Mahoney MD Unavailable [phone] Olga Garcia RN Unavailable [phone] Junior Chavira MD Unavailable [phone] Shantel Walker MD Unavailable [phone] Junior Chavira MD Unavailable [phone] Coni Dhaliwal CNP Unavailable [phone] Anel Long NP Unavailable [phone] Reason for Visit * Reason Onset Date Comments Direct Oral Anticoagulant 11/05/2024 Encounter Details Date Type Department Care Team (Latest Contact Info) Description 11/05/2024 Documentation Only [facility] Anticoagulation Clinic [address] [place] [address] Kevin Marie, RN Direct Oral Anticoagulant Social History Tobacco Use Types Packs/Day Years [...] How often do you attend chur or adventism services? 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 Kevin Marie RN 11/05/2024 documented in this encounter Plan of Treatment Upcoming Encounters Date Type Department Care Team (Late st Contact Info) Description 12/17/2024 9:[address] [facility] [address] [place] [phone] 12/23/2024 4:00 PM CDT Office Visit [facility] [address] [phone] Cyrus Aleman MD [address] [place] [address] [id number] 01/27/2025 10:00 AM CDT Office Visit [facility] Neurology [facility] [address] [place] [address] 200 [place] [phone] Anel Long, PSYCHOLOGIST ENGINEERING [address] [place], [place] [address] Coni Dhaliwal, COREY [address] [facility] 450 [place], [place] [address] 04/14/2025 11:15 AM CDT Office Visit [facility] Heart [facility] [address] [facility] [address] [place] [phone] Inessa Esteves DO [address] [place], [place] [address] 06/05/2025 12:30 PM CDT Office Visit [facility] Endocrinology [facility] [address] [facility] 3rd [place] [phone] Stephie Mahoney MD [address] [place] [address] 101 [place], [place] [address] 11/13/2025 11:00 AM CDT Virtual Visit [facility] Endocrinology Clinic [address] [place] [phone] Stephie Mahoney MD [address] [phone] documented as of this encounter Visit Diagnoses Not on filedocumented in this encounter Care Teams Order Management Specialist Relationship Specialty [place] [address] [place] [address] PCP - General Family Practice 11/21/16 Stephie Mahoney MD [address] [place] [address] 557335 Endocrinology, Diabetes, and Metabolism 04/22/21 Federica Foster RN [address] [place] [address] [phone] Heat Treater Diabetes Education 04/22/21 Tova Welch, RD [address] [place] [address] Heat Treater Nutrition 04/22/21 Stephie Mahoney MD [address] [place] [address] Assigned Endocrinology Provider 05/08/21 Olga Garcia, RN Specialty Car Attendant INTERNAL MEDICINE - ENDOCRINOLOGY, DIABETES & METABOLISM 09/29/22 Junior Chavira MD [address] [place] [id number] Cardiovascular Disease 05/29/24 [place] [address] [place] [address] Assigned PCP 07/12/24 Junior Chavira MD [address] [place] [address] Assigned Heart and Vascular Provider 08/11/24 Coni Dhaliwal, COREY [address] [place] [address]185 Nurse Practitioner Psychiatry & Neurology Vascular Neurology 11/04/24 Anel Long NP [address] [place] 363625 Nurse Practitioner Psychiatry & Neurology Vascular Neurology 11/04/24 documented as of this encounter
--- OUTSIDE RECORDS SUMMARY | 2024-12-11 23:50 | XMS_ITS | Encounter Summary ---
Author Organization [facility] Address [address] [facility] [place] [address] Care Team Providers Care Call Center Supervisor Name Role Phone Wilber Maharaj MD Primary Care Provider [phone] Stephie Mahoney MD Unavailable [phone] Federica Foster RN Unavailable [phone] Unavailable [phone] Stephie Mahoney MD Unavailable [phone] Olga Garcia RN Unavailable [phone] Junior Chavira MD Unavailable [phone] Shantel Walker MD Unavailable [phone] Junior Chavira MD Unavailable [phone] Coni Dhaliwal CNP Unavailable [phone] Anel Long NP Unavailable [phone] Reason for Referral * Consultation (Routine: Next available opening) - Pending Review Specialty Diagnoses / Procedures Referred By Contac t Referred To Contact Pulmonary Disease Diagnoses 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 of right middle cerebral artery (H) Finn Monroe, DO [address] [facility] [address] [place] [address] Phone: tel: fax: Referral ID Status Reason Start Date Expiration Date V isits Requested Visits Authorized [id number] Pending Review 11/04/2024 11/04/2025 1 1 Question Answer Reason for Referral: Other My Clinical Question Is: pleural effusion Patient Scheduling Instructions: [facility] will call you to coordinate your care as prescribed by the provider. If you don t hear from a school admissions representative within 2 business days, please call . Comments Please be aware that coverage of these services is subject to the terms and limitations of your health insurance plan. Call member services at your health plan with any benefit or coverage questions. [employer] will call you to coordinate your care as prescribed by the provider. If you don t hear from a school admissions representative within 2 business days, please call . * Home Health Therapies & Aides (Routine: Next available opening) - Pending Review Specialty Diagnoses / Procedures Referred By Isa t Referred To Contact Diagnoses 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 of right middle cerebral artery (H) Finn Monroe DO [address] [facility] [address] [place] [address] Phone: tel: fax: Referral ID Status Reason Start Date Expiration Date V [employer] Requested Visits Authorized [id number] Pending Review 11/04/2024 11/04/2025 1 1 Question Answer Reason for Referral: Long-Term, Physical Therapy, Speech Therapy Physical Therapy Eval and Treat for: Gait Training, Home Safety Assessment, Range of Motion, Therapeutic Exercise, Transfer Training Long-Term Eval and Treat for: Complex aftercare, Disease management, Complex medication teaching and monitoring, Caregiver training Speech Therapy Eval and Treat for: Speech, Cognitive Testing Additional Services Needed: Occupational Therapy Occupational Therapy Eval and Treat for: ADLs, Adaptive Therapy, Home Safety, Bathing Is the patient homebound? Yes Homebound Status (describe the functional limitations that support this patient is confined to his/her home. Medicaid recipients are not required to be homebound.): Dyspnea on exertion that makes it unsafe to leave home without clinical deterioration I attest that I saw or will see the patient on this date: 11/04/2024 Provider to follow patient WILBER MAHARAJ [[id number]] Comments Your provider has ordered home health services. If you have not been contacted within 2 days of your discharge please call the selected Home Care agency listed on your Discharge document. If a Home Care agency is NOT listed, please call [phone]. Reason for Visit * Auth/Cert (Routine) Specialty Diagnoses / Procedures Referred By Isa t Referred To Contact Rehabilitation [address] [address] Phone: tel: Referral ID Status Reason Start Date Expiration Date Visits Re quested Visits Authorized [id number] 1 1 Encounter Details Date Type Department Care Team (Latest Contact Info) Description 10/29/2024 2:37 PM CDT - 11/04/2024 1:16 PM CDT Hospital Encounter [place] [phone] Finn Monroe DO [address] [place], [place] [id number] Noemi Barksdale MD [address] [id number] Ischemic stroke (H) (Primary Dx); 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 of right middle cerebral artery (H) Discharge Disposition: Home-Health Care Svc Social History Tobacco Use Types Packs/Day Years [...] any clubs o r organizations such as confucianism groups, unions, fraternal or athletic groups, or [...] Recorded PHQ-2 Score 0 11/23/2023 [facility] - Occupational [...] in an overnight prison, or couch-surfing.) Yes 10/29/2024 Are you worried [...] AM CDT 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 Gender Identity Male 03/03/2019 9:24 PM CDT Sexual Orientation Straight 03/03/2019 9: 24 PM CDT documented as of this encounter Last Filed Vital Signs Vital Sign Reading Time Taken Comments Blood Pressure 136/76 11/04/2024 7:19 AM CDT Pulse 67 11/04/2024 7:19 AM CDT Temperature 36.8 C (98.3 F) 11/04/2024 7:19 AM CDT Respiratory Rate 18 11/04/2024 7:19 AM CDT Oxygen Saturation 97% 11/04/2024 7:19 AM CDT Inhaled Oxygen Concentration - - Weight 81.6 kg (180 lb) 10/29/2024 2:50 PM CDT Height 177.8 cm (5' 10) 10/29/2024 2:50 PM CDT Body Mass Index 25.83 10/29/2024 2:50 PM CDT documented in this encounter Discharge Summaries * Finn Monroe DO - 11/04/2024 1:16 PM CDT Images from the original note were not included. 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) JEFERSON (obstructive sleep apnea) Bilateral carotid artery stenosis Chronic lower back pain ESCALONA (dyspnea on exertion) Abnormal findings diagnostic imaging of heart and coronary circulation 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 Paroxysmal atrial fibrillation (H) Aortic valve replaced Benign essential hypertension Type 1 diabetes mellitus with hyperglycemia (H) Vasculogenic erectile dysfunction, unspecified vasculogenic erectile dysfunction type Hyponatremia History of basal cell carcinoma Weakness generalized RUQ abdominal pain Acute respiratory failure with hypoxia (H) Fall, initial encounter Pneumonia of both lower lobes due to infectious organism 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 of right middle cerebral artery (H) Ischemic stroke (H) brief summary Santy Glez is a 63 year old right-handed dominant male with a past medical history of type Idiabetes, seizures, 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 Patient recently had influenza. CT chest showed right lowerlung pneumonia, right pleural effusion and multiple liver lesions. Patient was treated with antibiotics. Patient underwent thoracentesis. Chest tube placed on 10/16 for loculated effusion. S/p tPA BID 10/20-10/23 to improve drainage and tube was removed on 10/24. No further management per thoracic surgery. Hospital course further complicated by atrial fibrillation with RVR which patient required amiodarone infusion. Spontaneously reverted back to sinus rhythm. Neurology was consulted due to continued left-sided weakness in which differential considerations included acute ischemia, posttreatment change, or recurrence. Neurology diagnosed an acute ischemic stroke of right frontal lobe due to cardioembolism despite anticoagulation. 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 Vision/Cognition: Pt impulsive at times, vision and cognition seems unchanged from baseline per pt report. M-JOANA score 28/30 (score of 21 and below indicates deficit) Assessment: ADL completed at CGA level with cues for L side and safety. Setup family training with on 11/04 9-11am SERVICE UNIT OPERATOR OIL WELL: Current Status: Hearing: WFL Vision: Glasses Communication: Motor speech, language intact Cognition: Mild cognitive impairment; mild memory and attention, moderate visuospatial, mild executive function Swallow: Regular solids/thin liquids (0). Not formally evaluated by [facility] SERVICE UNIT OPERATOR OIL WELL. mEDICAL COURSE #Acute hypoxic respiratory failure, resolved #Suspect postviral syndrome bacterial community-acquired pneumonia and right lower lung, resolved #Right parapneumonic effusion, resolved #Acute metabolic encephalopathy, likely related to above with falls, resolved #Cough, improving Patient arrived to ED on 10/12 presenting with fall, left-sided weakness and hypoxia. Of note, patient recently had influenza. CT chest showed right lower lung pneumonia, right pleural effusion and multiple liver lesions. Chest x-ray on 10/14 showed increasing right pleural effusion. Pulmonary was consulted. Patient was initially treated with Rocephin and Zithromax. This was changed to Zosyn on 10/14. Pulmonary consulted. Patient initially required 5 L of oxygen. Patient underwent thoracentesis. Chest tube placed on 10/16 for loculated effusion. S/p tPA BID 10/20-10/[address] chest on 10/23 showed improvement in pleural effusion with persistent right sided atelectasis, Chest tube wasremoved on 10/24. Pleural fluid cultures negative. Total course of antibiotics was 14 days, stop dateof Zosyn was on 10/28. Thoracic surgery consulted for residual pleural effusion and atelectasis following chest tube drainage. No recommendations for further intervention at this time. -Continue to assess respiratory status while on room air -Follow-up with thoracic surgery in [address] chest scan -For cough: Guaifenesin 600 mg bid, benzonatate 100 mg TID prn #History of right frontal lobe astrocytoma with resection, 1998 #Seizure disorder #Recrudescence of left upper and lower extremity weakness related to acute illness #Possible right ischemic stroke of frontal lobe Patient has chronic left arm and left leg weakness with astrocytoma that improved after treatment. Patient reportedly has recurrence of this weakness when patient is ill. Neurology was consulted on 10/27 due to continued L sided weakness and previous MRI result that recommended repeat imaging due toshowing Interval development of 1 cm linear focus of restricted diffusion posterior to the right frontal resection cavity. Differential considerations include acute ischemia, posttreatment change, orrecurrence. Neurology diagnosed an acute ischemic stroke of right frontal lobe possibly due to cardioembolism despite anticoagulation; some concern for hypercoagulability of malignancy given liver lesions. 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 Patient was able to convert to sinus rhythm on 10/15. Patient transitioned to oral amiodarone on 10/16 and will continue for 1 month. There is noted that patient intermittently was back in a trial fibrillation with borderline rate control starting on 10/17. Patient was transitioned from carvedilol 12.5 mg twice daily to Toprol-XL 50mg bid with good effect and conversion back to normal sinus rhythm -Oral amiodarone 200 mg x1 month (10/16/24-11/13/24) -Toprol-XL 50mg bid -Continue PROFESSIONAL SERVICES CONSULTANT apixaban 5mg bid -Ziopatch after rehab to measure atrial fibrillation burden vs loop recorder #Insulin-dependent diabetes, Type I #Hyperglycemia, improved Patient historically has been on insulin pump as well as metformin. Patient normally manages insulin pump but has not been eating well or feeling well so this was stopped during hospital stay. [id number] on 10/26/24. -Hypoglycemia protocol -BG checks QID before meals and bedtime -Prandial NovoLog 2 units for every 10 g of carbohydrates -> 1 units per 5g CHO, TID AC, and 1:6PRN with snacks and supplements -> discontinued with restarting pump on 10/31 -High intensity sliding scale TID AC and at bedtime -> discontinued with restarting pump on 10/31 -Lantus 30 units daily -> 27 units [id number] on 10/30 -> discontinued with restarting pump on 10/31 -Metformin 500 mg daily with supper -Endocrine consulted, appreciate help. See note on 11/03 for more recent details. Endocrine has signed off. Endocrine recommending keeping current settings for insulin pump on discharge and will not need any diabetes supplies as patient has them at home. -Continue PROFESSIONAL SERVICES CONSULTANT metformin 500 mg daily -Continue Novolog via Omnipod 5 with Dexcom G7 in auto-mode with the following pump settings: Basal Rate: 0000 - 2359: 0.9 units/hr Total Manual Basal: 21.6 units/day *Should run in Auto mode- check at bedtime to make sure running in auto Insulin to carb ratio: 0000 - 2359: 10 Sensitivity factor: 0000 - 2359: 40 Target glucose: 120 (last changed 11/02/24 from 110) Correct above: 130 Reverse correction: off Active insulin time: 2.5 hours -If pump failure: - Lantus 22 units daily, Novolog 1 unit per 10 g of carb plus medium resistance correction >140 TID AC and >200 HS - BG monitoring: TID AC, HS, 0200 - Hypoglycemia protocol - Carb counting protocol #Hyponatremia This was thought to be hypovolemic related but appears to be acute on chronic issue. 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 Previous urine sodium < 20, urine osm 715, and serum osmolality 290. -Sodium 126 on 10/30 (recently 129 on 10/23). Asymptomatic -Labs one 10/30 -Urine sodium: < 20 -Urine osmolality: 735 -Serum osmolality: 273 (mildly low) -Continue 2L/day fluid restriction at this time -Repeat BMP on 10/31 -> sodium 129 -Repeat BMP on 11/03 -> sodium 125 -Continue to monitor at this time. Hypovolemia vs SIADH presentation. Encourage to have oral hydration up to 2 L at this time -If worsens, consider tightening fluid restriction. If symptomatic (confusion, convulsions), provide hypertonic saline 200-300 ml IVF over 3-4 hours -Curbsiding nephrology at this time -Repeat BMP on 11/04 - stable Na will need follow-up outpatient #Hypertension -PROFESSIONAL SERVICES CONSULTANT Lisinopril 30 mg daily #Hyperlipidemia -Continue PROFESSIONAL SERVICES CONSULTANT ezetimibe 10mg daily -Atorvastatin 40 mg every evening #Liver lesions Noted on initial CT chest. Patient and state that they were aware of these but I cannot find previous abdominal imaging. MRI obtained on 10/14 confirmed lesions raising question of metastatic disease. Patient may require biopsy for this. Patient follows in [facility] system. -Consider assessing with primary care provider in [facility] system #Obstructive sleep apnea -Use home CPAP #Chronic back pain -Acetaminophen 650 mg q4hrs prn -Diclofenac 2g QID daily -Lidocaine patch 4% 2 patch q12 hours -Oxycodone 5mg BID prn -Tizanidine 2-4 mg q8hrs prn dISCHARGE MEDICATIONS Discharge Medication List as of 11/04/2024 12:42 PM START taking these medications Details magnesium oxide (MAG-OX) 400 MG tablet Supplement, Disp-30 tablet, R-0, E-Prescribe CONTINUE these medications which have CHANGED Details metoprolol succinate ER (TOPROL XL) 50 MG 24 hr tablet Take 1 tablet (50 mg) by mouth 2 times daily., Disp-60 tablet, R-0, E-Prescribe tiZANidine (ZANAFLEX) 2 MG tablet Take 1-2 tablets (2-4 mg) by mouth every 8 hours as needed for muscle spasms., Disp-90 tablet, R-0, E-Prescribe oxyCODONE (ROXICODONE) 5 MG tablet Take 1 tablet (5 mg) by mouth 2 times daily as needed for severepain., Disp-20 tablet, R-0, E-Prescribe CONTINUE these medications which have NOT CHANGED Details !! apixaban ANTICOAGULANT (ELIQUIS ANTICOAGULANT) 5 MG tablet Take 1 tablet (5 mg) by mouth 2 timesdaily. Discontinue when bottle is completed and start ASA, Historical LAMOTRIGINE PO Take 300 mg by mouth 2 times daily, Historical lisinopril (ZESTRIL) 30 MG tablet Take 1 tablet (30 mg) by mouth daily., Disp-90 tablet, R-1, E-Prescribe Multiple Vitamins-Minerals (MENS MULTI VITAMIN & MINERAL PO) Take 1 tablet by mouth daily , Historical Psyllium (METAMUCIL FIBER PO) Take 1 Dose by mouth daily., Historical acetaminophen (TYLENOL) 325 MG tablet Take 2 tablets (650 mg) by mouth every 4 hours as needed for mild pain or other (and adjunct with moderate or severe pain or per patient request)., Transitional acetone urine (KETOSTIX) test strip Use to check urine ketones in the event of pump failure or unexplained blood glucoses over 250 and not resolving., Disp-25 strip, R-3, E-Prescribe amiodarone (PACERONE) 200 MG tablet Take 1 tablet (200 mg) by mouth daily for 14 days., Disp-14 tablet, R-0, E-Prescribe !! apixaban ANTICOAGULANT (ELIQUIS) 5 MG tablet Take 1 tablet (5 mg) by mouth 2 times daily., Disp-180 tablet, R-1, E-Prescribe atorvastatin (LIPITOR) 40 MG tablet Take 1 tablet (40 mg) by mouth every evening., Transitional cholecalciferol (VITAMIN D3) 125 mcg (5000 units) capsule Take 125 mcg by mouth daily., Historical Continuous Glucose Sensor (DEXCOM G7 SENSOR) MISC Change every 10 days., Disp-9 each, R-5, E-Prescribe ezetimibe (ZETIA) 10 MG tablet Take 10 mg by mouth every evening., Historical Insulin Disposable Pump (OMNIPOD 5 G7 PODS, GEN 5,) MISC 1 pod See Admin Instructions. Change every3 days, Disp-30 each, R-3, E-Prescribe INSULIN PUMP - OUTPATIENT Inject subcutaneously. Date Last Updated: 10/12/24 Omnipod BASAL RATES and times: Continuous (: 0.9 units/hour CARB RATIO and times: : 1 unit for 10g of carbohydrates Corection Factor (Sensitivity) and times: : 1 un it lowers BG by 40 mg/dL BLOOD GLUCOSE TARGET and times: 110 - 120 mg/dL Active Insulin Time: 2.5 hours Sensor: Yes: lower limit = 70 mg/dL, upper limit = 180 mg/dL Changes pump q3d, Historical insulin syringe-needle U-100 (30G X 1/2 0.3 ML) 30G X 1/2 0.3 ML miscellaneous Use in the event of pump failure and need to administer manual injection.Disp- 10 each, [id number] Melatonin 10 MG TABS tablet Take 10 mg by mouth at bedtime., Historical metFORMIN (GLUCOPHAGE) 500 MG tablet Take 1 tablet (500 mg) by mouth daily (with dinner), Disp-90 tablet, R-3, E-Prescribe sildenafil (VIAGRA) 100 MG tablet Take 1 tablet (100 mg) by mouth daily as needed (30 minutes priorto sexual activity), Disp-12 tablet, R-11, E-Prescribe vitamin C (ASCORBIC ACID) 1000 MG TABS Take 1 tablet by mouth daily, Historical zinc gluconate 50 MG tablet Take 50 mg by mouth daily, Historical !! - Potential duplicate medications found. Please discuss with provider. 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 Yes Diet Order Comments: Follow this diet upon discharge: Current Diet:Orders Placed This Encounter Fluid restriction 2000 ML FLUID Room Service Combination Diet Regular Diet; Thin Liquids (level 0) Order Specific Question Answer Comments Is discharge order? Yes Hospital Follow-up with Existing Primary Care Provider (PCP) Standing Status: Future Standing Exp. Date: 12/04/24 Order Comments: Please see details below Order Specific Question Answer Comments Schedule Primary Care visit within 7 Days physical examination Most recent Vital Signs: Vitals: 11/03/24 0939 11/03/24 1541 11/03/24 2045 11/04/24 0719 BP: 112/56 131/76 136/76 BP Location: Right arm Right arm Right arm Patient Position: Semi-Suh's Cuff Size: Adult Regular Pulse: 72 75 67 Resp: 18 18 Temp: 98.6 ??F (37 ??C) 97.1 ??F (36.2 ??C) 98.3 ??F (36.8 ??C) TempSrc: Oral Oral Oral SpO2: 96% 95% 97% Weight: Height: General: sitting at edge of bed, no acute distress HEENT: Previous head surgery scar appreciated on right side of head. Pulmonary: Breathing comfortably on room air, clear to auscultation throughout Cardiovascular: No leg edema, regular, rate, and rhythm Abdominal: Non-tender, non-distended Extremities: warm, well perfused, no edema in bilateral lower extremities, no tenderness in calves.Decreased range of motion with left upper extremity MSK/neuro: alert and oriented x3. Essential tremors appreciated with bilateral upper extremity L > R Discharge summary was forwarded to Wilber Maharaj (PCP) at the time of discharge, so as to bridge from hospital to outpatient care. It was our pleasure to care for Santy Glez during this hospitalization. Please do not hesitate to contact me should there be questions regarding the hospital course or discharge plan. Finn Monroe DO Physical Medicine & Rehabilitation I, Finn Monroe DO, saw and evaluated this patient prior to discharge. 35 minutes spent in discharge, including >50% in counseling and coordination of care, medication review and plan of care recommended on follow up. documented in this encounter Discharge Instructions * Discharge Instructions* Onofre Reyes - 11/04/2024 11:05 AM CDT Follow up Appointments on Discharge: PCP You are scheduled to see Dr. Maharaj on November 17 2024 at 7:15 am. Address [address] [facility] [address] PM & R You are scheduled to see Dr. Aleman on Dec 23 2024 at 3:15 pm. Address [address] [facility] [address] [facility] [address] [facility] [address] Imaging (CT) You are scheduled for a CT on November 28 2024 at 1:25 pm. Address [address] [facility] [address] Cardiology You are scheduled to see Dr. Esteves on April 14 2025 at 11:15 pm. Address [address] [facility] [address] Neurology You are scheduled to see Coni Dhaliwal NP on January 27 2025 at 9:45 am. Address [address] [facility] [address] Pulmonary You are scheduled to see on at . You will be called to schedule this appointment. Home Health Care: [facility] PH: [phone] F: [phone] or F: [phone] [email or web address] PT/OT/SERVICE UNIT OPERATOR OIL WELL/RN * Attachments The following attachments cannot be sent through Care Everywhere. * Stroke: Symptoms: General Info ([place]) * Stroke: Risk Factors: General Info ([place]) documented in this encounter Medications at Time [...] and not resolving. 25 strip 3 3 apixaban ANTICOAGULANT (ELIQUIS) 5 MG tabletIndications: Ischemic stroke (H) Take 1 tablet (5 mg) by mouth 2 times daily. 180 tablet 1 5 atorvastatin (LIPITOR) 40 MG tabletIndications: 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 of right middle cerebral artery (H) Take 1 tablet (40 mg) by mouth every evening. 5 cholecalciferol (VITAMIN D3) 125 mcg (5000 units) capsule Take 125 mcg by mouth daily. Continuous Glucose Sensor (DEXCOM G7 SENSOR) MISCIndications:Ty pe 1 diabetes mellitus [...] completed and start ASA 4 11/06/19 25 INSULIN PUMP - OUTPATIENT Inject subcutaneously. Date Last Updated: 10/12/24 Omnipod BASAL RATES and times: Continuous (1906-5289: 0.9 units/hour CARB RATIO and times: 1897-5049: 1 unit for 10g of carbohydrates Corection Factor (Sensitivity) and times: 1677-1555: 1 unit lowers BG by 40 mg/dL BLOOD GLUCOSE TARGET and times: 110 - 120 mg/dL Active Insulin Time: 2.5 hours Sensor: Yes: lower limit = 70 mg/dL, upper limit = 180 mg/dL Changes pump q3d 11/15/19 25 metFORMIN (GLUCOPHAGE) 500 MG tabletIndications: Elevated glucose Take 1 tablet (500 mg) by mouth daily (with dinner) 90 tablet 3 4 11/15/19 25 documented as of this encounter Progress Notes * Melissa Ferreira - 11/04/2024 1:16 PM CDT Speech Language Therapy Discharge Summary Reason for therapy discharge: Discharged to home with home therapy. Progress towards therapy goal(s). See goals on Care Plan in [facility] electronic health record for goal details. Goals not met. Barriers to achieving goals: discharge from facility. Therapy recommendation(s): Continued therapy is recommended. Rationale/Recommendations: Recommending ongoing therapy to address areas of cognition related to memory, information processing, and attention and support ability to engage in IADLS. Pt completed RBANS assessment form A on 11/02. See results below: Repeatable Battery for the Assessment of Neuropsychological Status (RBANS) FORM A Immediate Memory Visuospatial/ Constructional Language Attention Delayed Memory Total Scale Index Score 87 72 101 82 86 81 Percentile Rank 19 3 53 12 18 10 Cosigned by Gee Lawrence, SERVICE UNIT OPERATOR OIL WELL at 11/04/2024 4:33 PM CDT Associated attestation - Gee Lawrence SERVICE UNIT OPERATOR OIL WELL - 11/04/2024 4:33 PM CDT I, Gee Lawrence, MS [facility] SERVICE UNIT OPERATOR OIL WELL agree with the assessment and POC of Melissa Ferreira, SERVICE UNIT OPERATOR OIL WELL student. * Ashley Nix, PT - 11/04/2024 10:37 AM CDT Physical Therapy Discharge Summary Reason for therapy discharge: Discharged to home with home therapy. Progress towards therapy goal(s). See goals on Care Plan in [facility] electronic health record for goal details. Goals partially met. Barriers to achieving goals: discharge from facility. Therapy recommendation(s): Continued therapy is recommended. Rationale/Recommendations: Family training with Baylee - she is eager to d/c to home today. Issued FWW, gait belt, and disability parking pass paperwork. No concerns from PT on d/c today, but recommendation has been changed to HC d/t early d/c.. Current Status: Bed Mobility: IND Transfer: FWW CGA Gait: CGA with FWW >500 ft Stairs:CGA with single rail, cues to slow down Outcome Measures: TU.08 sec no device on 10/30 FGA: 12/17 no device on 10/30 Aiken/56 on 10/31 Recommendations: CGA with FWW, no driving, CGA on stairs * Denise Remy - 11/04/2024 9:49 AM CDT Family training completed today. YESICA notified today that pt can discharge home after training today.Home PT/OT/SERVICE UNIT OPERATOR OIL WELL/RN referrals sent to the [facility] Care hub. [facility] able to accept. AVS updated. SW met with pt to complete IRF. SW reviewed home care with patient and . No questions for SW atthis time. will drive pt home. Home Health Care: [facility] PH: [phone] F: [phone] or F: [phone] [email or web address] PT/OT/SERVICE UNIT OPERATOR OIL WELL/RN IRF-[place] Pain Assessment Pain Effect on Sleep Over the past 5 days, how much of the time has pain made it hard for you to sleep at night? 1. Rarely or not at all Pain Interference with Therapy Activities Over the past 5 days, how often have you limited your participation in rehabilitation therapy sessions due to pain? 1. Rarely or not at all Pain Interference with Day-to-Day Activities Over the past 5 days, how often have you limited your day-to-day activities (excluding rehabilitation therapy sessions) because of pain? 1. Rarely or not at all [facility] [employer] LIZZYU/MONIKA/JUANI * Sylvia Blackman RN - 11/03/2024 2:53 PM CDT VS: BP 116/67 Pulse 76 Temp 98.6 ??F (37 ??C) (Oral) Resp 16 Ht 1.778 m (5' 10) Wt 81.6 kg (180 lb) SpO2 96% BMI 25.83 kg/m?? O2: SpO2 stable on RA. LS clear and equal bilaterally. Denies chest pain and SOB. Output: Voids spontaneously without difficulty to bathroom/urinal. Last BM: 11/03, denies abdominal discomfort. BS active / passing flatus. Activity: Up with assist of one with walker. Skin: WDL Pain: Pain managed with PRN Oxycodone and Tylenol. Lidocaine gel place on lower back. CMS: Intact, AOx4. Denies numbness and tingling. Dressing: N/A Diet: Regular diet. Denies nausea/vomiting. BG 153 and BG 138. LDA: Insulin pump (Dexcom) on left upper thigh. Equipment: Personal belongings at bedside. Plan: Continue with plan of care. Call light within reach, pt able to make needs known. Additional Info: * RAAD MERRILL - 11/03/2024 2:15 PM CDT Patient participated in stroke education. The documents, Learning about BE FAST, Learning about Risk Factors for Stroke, and Understanding Stroke were reviewed with patient in detail and copies were given to him to keep. He states understanding however unknown if he will retain information. Furthereducation was added to discharge AVS to review with family upon discharge. * Reji Roca DO - 11/03/2024 9:17 AM CDT Images from the original note were not included. [facility] Acute Rehabilitation Unit Daily progress note INTERVAL HISTORY No acute answer night. Vital signs reviewed and stable. Weekend and nursing notes reviewed. Labs drawn this morning. Sodium 125. Endocrine continue to follow over the weekend. Patient seen laying in bed this morning. Patient states feeling tired this morning due to poor sleep last night. Patient states that CPAP mask was not on correctly and thus resulted to disturbed sleep overnight. Patient denies pain at this time. Discussed about patient's sodium level this morning. Patient denies having headache, dizziness, blurry vision, chest pain, shortness of breath, abdominalpain. Encourage patient to continue hydration at this time up to 2 L. Will discuss with nephrology.Insulin pump working well for patient. Patient reports having coughs but is currently managed by guaifenesin and benzonatate. LBM 11/02. No other questions or concerns at this time. Functionally: PT (11/03/24) Current Status: Bed Mobility: Art with HOB flat no rails Transfer: STS to FWW CGA, SPT with CGA-Art Gait: 200' with FWW and up to Art with turns Stairs: Art with R rail for balance, verbal cues for safety Balance: good static sitting, fair+ dynamic sitting, fair- static and dynamic standing Outcome Measures: TU.08 sec no device on 10/30 FGA: 4/30 no device on 10/30 Aiken/56 on 10/31 OT (11/03/24) Current Status: ADLs: Mobility: CGA-Min A with 2ww Grooming: SBA seated Dressing: LB: min A, SBA socks/shoes, UB: SBA Bathing: bathing min A Toileting: CGA transfer with grab bars IADLs: Pt was completely ind with IADLs at baseline. Vision/Cognition: Pt impulsive at times, vision and cognition seems unchanged from baseline per pt report. M-JOANA score 28/30 (score of 21 and below indicates deficit) SERVICE UNIT OPERATOR OIL WELL (11/03/24): Current Status: Hearing: WFL Vision: Glasses Communication: Motor speech, language intact Cognition: Mild cognitive impairment; mild memory and attention, moderate visuospatial, mild executive function Swallow: Regular solids/thin liquids (0). Not formally evaluated by [facility] SERVICE UNIT OPERATOR OIL WELL. MEDICATIONS Scheduled meds Current Facility-Administered Medications Medication Dose Route Frequency Provider Last Rate Last Admin amiodarone (PACERONE) tablet 200 mg 200 mg Oral Daily Zee Espana PA-C 200 mg at 11/02/24734 apixaban ANTICOAGULANT (ELIQUIS) tablet 5 mg 5 mg Oral BID Zee Espana PA-C 5 mg at 11/02/242051 atorvastatin (LIPITOR) tablet 40 mg 40 mg Oral QPM Zee Espana PA-C 40 mg at 11/02/242051 cholecalciferol (VITAMIN D3) capsule 125 mcg 125 mcg Oral Daily Zee Espana PA-C 125 mcg at 11/02/24734 diclofenac (VOLTAREN) 1 % topical gel 2 g 2 g Topical 4x Daily Zee Espana PA-C 2 g at 11/02/242056 ezetimibe (ZETIA) tablet 10 mg 10 mg Oral QPM Zee Espana PA-C 10 mg at 11/02/242051 guaiFENesin (MUCINEX) 12 hr tablet 600 mg 600 mg Oral BID Zee Espana PA-C 600 mg at 11/02/242051 insulin aspart (NovoLOG/FIASP) 100 UNIT/ML VIAL FOR FILLING PUMP RESERVOIR Device See Admin Instructions Tova Levy PA-C 1 vial at 10/31/24 1654 insulin bolus from AMBULATORY PUMP Subcutaneous 4x Daily AC & HS Yudelka Del Castillo APRN EIGHT ARM OPERATOR Given at 11/02/24 2100 insulin bolus from AMBULATORY PUMP Subcutaneous TID AC Yudelka Del Castillo APRN EIGHT ARM OPERATOR Given at 11/02/24 1745 lamoTRIgine (LaMICtal) tablet 300 mg 300 mg Oral BID Zee Espana PA-C 300 mg at 11/02/24 2052 Lidocaine (LIDOCARE) 4 % Patch 2 patch 2 patch Transdermal Q24H Zee Espana PA-C 2 patch at 10/31/24 0755 lisinopril (ZESTRIL) tablet 30 mg 30 mg Oral Daily Zee Espana PA-C 30 mg at 11/02/24 0736 magnesium oxide (MAG-OX) tablet 400 mg 400 mg Oral Daily Zee Espana PA-C 400 mg at 11/02/24 0734 metFORMIN (GLUCOPHAGE) tablet 500 mg 500 mg Oral Daily with supper Zee Espana PA-C 500 mgat 11/02/24 1742 metoprolol succinate ER (TOPROL XL) 24 hr tablet 50 mg 50 mg Oral BID Zee Espana PA-C 50 mg at 11/02/24 2052 miconazole (MICATIN) 2 % powder Topical BID Zee Espana PA-C Given at 11/02/24 0955 multivitamin w/minerals (THERA-VIT-M) tablet 1 tablet 1 tablet Oral Daily Zee Espana PA-C1 tablet at 11/02/24 0736 psyllium (METAMUCIL/KONSYL) capsule 5 capsule 5 capsule Oral Daily Zee Espana PA-C 5 capsule at 11/02/24 0735 PRN meds: Current Facility-Administered Medications Medication Dose Route Frequency Provider Last Rate Last Admin acetaminophen (TYLENOL) tablet 650 mg 650 mg Oral Q4H PRN Zee Espana PA-C 650 mg at 10/31/24 1245 benzonatate (TESSALON) capsule 100 mg 100 mg Oral TID PRN Zee Espana PA-C glucose gel 15-30 g 15-30 g Oral Q15 Min PRN Zee Espana PA-C Or dextrose 50 % injection 25-50 mL 25-50 mL Intravenous Q15 Min PRN Zee Espana PA-C Or glucagon injection 1 mg 1 mg Subcutaneous Q15 Min PRN Zee Espana PA-C melatonin tablet 3 mg 3 mg Oral At Bedtime PRN Zee Espana PA-C 3 mg at 11/01/242002 naloxone (NARCAN) injection 0.2 mg 0.2 mg Intravenous Q2 Min PRN Finn Monroe, Or naloxone (NARCAN) injection 0.4 mg 0.4 mg Intravenous Q2 Min PRN Finn Monroe, DO Or naloxone (NARCAN) injection 0.2 mg 0.2 mg Intramuscular Q2 Min PRN Finn Monroe, Or naloxone (NARCAN) injection 0.4 mg 0.4 mg Intramuscular Q2 Min PRN Finn Monroe, DO oxyCODONE (ROXICODONE) tablet 5 mg 5 mg Oral BID PRN Zee Espana PA-C 5 mg at 10/30/24250 Patient is already receiving anticoagulation with heparin, enoxaparin (LOVENOX), warfarin (COUMADIN) or other anticoagulant medication Does not apply Continuous PRN Zee Espana PA-C senna-docusate (SENOKOT-S/PERICOLACE) 8.6-50 MG per tablet 1 tablet 1 tablet Oral BID PRN Zee Espana PA-C tiZANidine (ZANAFLEX) tablet 2-4 mg 2-4 mg Oral Q8H PRN Zee Espana PA- C 2 mg at 11/02/242050 PHYSICAL EXAM BP (!) 158/80 Pulse 80 Temp 98.9 ??F (37.2 ??C) (Oral) Resp 16 Ht 1.778 m (5' 10) Wt 81.6 kg (180 lb) SpO2 95% BMI 25.83 kg/m?? General: Laying in bed, no acute distress HEENT: Previous head surgery scar appreciated on right side of head. Pulmonary: Breathing comfortably on room air, clear to auscultation throughout Cardiovascular: No leg edema, regular, rate, and rhythm Abdominal: Non-tender, non-distended, normal bowel sounds Extremities: warm, well perfused, no edema in bilateral lower extremities, no tenderness in calves.Decreased range of motion with left upper extremity MSK/neuro: alert and oriented x3. Essential tremors appreciated with bilateral upper extremity L > R LABS Recent Results (from the past 24 hours) Glucose by meter Collection Time: 11/02/24 12:16 PM Result Value Ref Range GLUCOSE BY METER POCT 141 (H) 70 - 99 mg/dL Glucose by meter Collection Time: 11/02/24 5:06 PM Result Value Ref Range GLUCOSE BY METER POCT 160 (H) 70 - 99 mg/dL Glucose by meter Collection Time: 11/02/24 8:59 PM Result Value Ref Range GLUCOSE BY METER POCT 119 (H) 70 - 99 mg/dL Glucose by meter Collection Time: 11/03/24 1:58 AM Result Value Ref Range GLUCOSE BY METER POCT 145 (H) 70 - 99 mg/dL Glucose by meter Collection Time: 11/03/24 5:36 AM Result Value Ref Range GLUCOSE BY METER POCT 133 (H) 70 - 99 mg/dL Basic metabolic panel Collection Time: 11/03/24 7:40 AM Result Value Ref Range Sodium 125 (L) 135 - 145 mmol/L Potassium 3.9 3.4 - 5.3 mmol/L Chloride 88 (L) 98 - 107 mmol/L Carbon Dioxide (CO2) 24 22 - 29 mmol/L Anion Gap 13 7 - 15 mmol/L Urea Nitrogen 15.6 8.0 - 23.0 mg/dL Creatinine 0.82 0.67 - 1.17 mg/dL GFR Estimate >90 >60 mL/min/1.73m2 Calcium 8.7 (L) 8.8 - 10.4 mg/dL Glucose 165 (H) 70 - 99 mg/dL CBC with platelets Collection Time: 11/03/24 7:40 AM Result Value Ref Range WBC Count 3.9 (L) 4.0 - 11.0 10e3/uL RBC Count 4.09 (L) 4.40 - 5.90 10e6/uL Hemoglobin 12.3 (L) 13.3 - 17.7 g/dL Hematocrit 35.1 (L) 40.0 - 53.0 % MCV 86 78 - 100 fL MCH 30.1 26.5 - 33.0 pg MCHC 35.0 31.5 - 36.5 g/dL RDW 12.0 10.0 - 15.0 % Platelet Count 399 150 - 450 10e3/uL Magnesium Collection Time: 11/03/24 7:40 AM Result Value Ref Range Magnesium 1.7 1.7 - 2.3 mg/dL Glucose by meter Collection Time: 11/03/24 7:44 AM Result Value Ref Range GLUCOSE BY METER POCT 153 (H) 70 - 99 mg/dL ASSESSMENT AND PLAN Santy Glez is a 63 year old right-handed dominant male with a past medical history of type Idiabetes, seizures, 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 Patient recently had influenza. CT chest showed right lowerlung pneumonia, right pleural effusion and multiple liver lesions. Patient was treated with antibiotics. Patient underwent thoracentesis. Chest tube placed on 10/16 for loculated effusion. S/p tPA BID 10/20-10/23 to improve drainage and tube was removed on 10/24. No further management per thoracic surgery. Hospital course further complicated by atrial fibrillation with RVR which patient required amiodarone infusion. Spontaneously reverted back to sinus rhythm. Neurology was consulted due to continued left-sided weakness in which differential considerations included acute ischemia, posttreatment change, or recurrence. Neurology diagnosed an acute ischemic stroke of right frontal lobe due to cardioembolism despite anticoagulation. Admission to acute inpatient rehab 10/29/24. 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 Impairment of ADL's: Impairment in strength, endurance, and ROM resulting in functional limitationsin patient's ability to perform ADLs Impairment of mobility: Impairment in strength, endurance, and ROM resulting in functional limitations in patient's ability to perform functional mobility Medical Conditions #Acute hypoxic respiratory failure, resolved #Suspect postviral syndrome bacterial community-acquired pneumonia and right lower lung, resolved #Right parapneumonic effusion, resolved #Acute metabolic encephalopathy, likely related to above with falls, resolved #Cough, improving Patient arrived to ED on 10/12 presenting with fall, left-sided weakness and hypoxia. Of note, patient recently had influenza. CT chest showed right lower lung pneumonia, right pleural effusion and multiple liver lesions. Chest x-ray on 10/14 showed increasing right pleural effusion. Pulmonary was consulted. Patient was initially treated with Rocephin and Zithromax. This was changed to Zosyn on 10/14. Pulmonary consulted. Patient initially required 5 L of oxygen. Patient underwent thoracentesis. Chest tube placed on 10/16 for loculated effusion. S/p tPA BID 10/20-10/[address] chest on 10/23 showed improvement in pleural effusion with persistent right sided atelectasis, Chest tube wasremoved on 10/24. Pleural fluid cultures negative. Total course of antibiotics was 14 days, stop dateof Zosyn was on 10/28. Thoracic surgery consulted for residual pleural effusion and atelectasis following chest tube drainage. No recommendations for further intervention at this time. -Continue to assess respiratory status while on room air -Follow-up with thoracic surgery in [address] chest scan -For cough: Guaifenesin 600 mg bid, benzonatate 100 mg TID prn #History of right frontal lobe astrocytoma with resection, 1998 #Seizure disorder #Recrudescence of left upper and lower extremity weakness related to acute illness #Possible right ischemic stroke of frontal lobe Patient has chronic left arm and left leg weakness with astrocytoma that improved after treatment. Patient reportedly has recurrence of this weakness when patient is ill. Neurology was consulted on 10/27 due to continued L sided weakness and previous MRI result that recommended repeat imaging due toshowing Interval development of 1 cm linear focus of restricted diffusion posterior to the right frontal resection cavity. Differential considerations include acute ischemia, posttreatment change, orrecurrence. Neurology diagnosed an acute ischemic stroke of right frontal lobe possibly due to cardioembolism despite anticoagulation; some concern for hypercoagulability of malignancy given liver lesions. 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 Patient was able to convert to sinus rhythm on 10/15. Patient transitioned to oral amiodarone on 10/16 and will continue for 1 month. There is noted that patient intermittently was back in a trial fibrillation with borderline rate control starting on 10/17. Patient was transitioned from carvedilol 12.5 mg twice daily to Toprol-XL 50mg bid with good effect and conversion back to normal sinus rhythm -Oral amiodarone 200 mg x1 month (10/16/24-11/13/24) -Toprol-XL 50mg bid -Continue PROFESSIONAL SERVICES CONSULTANT apixaban 5mg bid -Ziopatch after rehab to measure atrial fibrillation burden vs loop recorder #Insulin-dependent diabetes, Type I #Hyperglycemia, improved Patient historically has been on insulin pump as well as metformin. Patient normally manages insulin pump but has not been eating well or feeling well so this was stopped during hospital stay. [id number] on 10/26/24. -Hypoglycemia protocol -BG checks QID before meals and bedtime -Prandial NovoLog 2 units for every 10 g of carbohydrates -> 1 units per 5g CHO, TID AC, and 1:6PRN with snacks and supplements -> discontinued with restarting pump on 10/31 -High intensity sliding scale TID AC and at bedtime -> discontinued with restarting pump on 10/31 -Lantus 30 units daily -> 27 units [id number] on 10/30 -> discontinued with restarting pump on 10/31 -Metformin 500 mg daily with supper -Endocrine consulted, appreciate help. See note on 11/03 for more recent details. Endocrine has signed off. Endocrine recommending keeping current settings for insulin pump on discharge and will not need any diabetes supplies as patient has them at home. -Continue PROFESSIONAL SERVICES CONSULTANT metformin 500 mg daily -Continue Novolog via Omnipod 5 with Dexcom G7 in auto-mode with the following pump settings: Basal Rate: 0000 - 2359: 0.9 units/hr Total Manual Basal: 21.6 units/day *Should run in Auto mode- check at bedtime to make sure running in auto Insulin to carb ratio: 0000 - 2359: 10 Sensitivity factor: 0000 - 2359: 40 Target glucose: 120 (last changed 11/02/24 from 110) Correct above: 130 Reverse correction: off Active insulin time: 2.5 hours -If pump failure: - Lantus 22 units daily, Novolog 1 unit per 10 g of carb plus medium resistance correction >140 TID AC and >200 HS - BG monitoring: TID AC, HS, 0200 - Hypoglycemia protocol - Carb counting protocol #Hyponatremia This was thought to be hypovolemic related but appears to be acute on chronic issue. 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 Previous urine sodium < 20, urine osm 715, and serum osmolality 290. -Sodium 126 on 10/30 (recently 129 on 10/23). Asymptomatic -Labs one 10/30 -Urine sodium: < 20 -Urine osmolality: 735 -Serum osmolality: 273 (mildly low) -Continue 2L/day fluid restriction at this time -Repeat BMP on 10/31 -> sodium 129 -Repeat BMP on 11/03 -> sodium 125 -Continue to monitor at this time. Hypovolemia vs SIADH presentation. Encourage to have oral hydration up to 2 L at this time -If worsens, consider tightening fluid restriction. If symptomatic (confusion, convulsions), provide hypertonic saline 200-300 ml IVF over 3-4 hours -Curbsiding nephrology at this time -Repeat BMP on 11/04 #Hypertension -PROFESSIONAL SERVICES CONSULTANT Lisinopril 30 mg daily #Hyperlipidemia -Continue PROFESSIONAL SERVICES CONSULTANT ezetimibe 10mg daily -Atorvastatin 40 mg every evening #Liver lesions Noted on initial CT chest. Patient and state that they were aware of these but I cannot find previous abdominal imaging. MRI obtained on 10/14 confirmed lesions raising question of metastatic disease. Patient may require biopsy for this. Patient follows in [facility] system. -Consider assessing with primary care provider in [facility] system #Obstructive sleep apnea -Use home CPAP #Chronic back pain -Acetaminophen 650 mg q4hrs prn -Diclofenac 2g QID daily -Lidocaine patch 4% 2 patch q12 hours -Oxycodone 5mg BID prn -Tizanidine 2-4 mg q8hrs prn Adjustment to disability: Clinical psychology to eval and treat if indicated FEN: Regular diet Bowel: Psyllium 5 capsule daily Bladder: Assess continence DVT Prophylaxis: Apixaban GI Prophylaxis: None Code: FULL Code Disposition: Home with home care and home with outpatient therapy ELOS: 10 days. Rehab prognosis: Good Follow up Appointments on Discharge: PCP PM&R Thoracic surgery follow-up in [address] chest Cardiology Neurology Pulmonary? Patient reviewed with attending physician, Dr. Monroe, who agrees with the assessment and plan. Reji Roca DO Resident Physician [facility] PM[facility] PGY-2 [facility] 11/03/2024 Cosigned by Finn Monroe DO at 11/03/2024 4:10 PM CDT Associated attestation - Finn Monroe DO - 11/03/2024 4:10 PM CDT Physician Attestation I personally examined and evaluated this patient. I discussed the patient with the resident/fellow and care team, and agree with the assessment and plan of care as documented in the note. Please see A&P for additional details of medical decision making. I have personally reviewed the following data over the past 24 hrs: 3.9 (L) \ 12.3 (L) / 399 125 (L) 88 (L) 15.6 / 138 (H) 3.9 24 0.82 \ Finn Monroe DO Date of Service (when I saw the patient): 11/03/24 * Mavis Dang PA-C - 11/03/2024 6:58 AM CDT Images from the original note were not included. 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 Neurology was consulted due to continued left-sided weakness in which differential considerations included acute ischemia, posttreatment change, or recurrence. Neurology diagnosed an acute ischemic stroke of right frontal lobe due to cardioembolism despite anticoagulation. Inpatient Diabetes Service consulted for potentially restarting ambulatory insulin pump and glycemic adjustments. Assessment/Plan: Assessment: JAVIER treated as Type 1 Diabetes Mellitus complicated by macrovascular disease and hyperglycemia. Fair control (A1c 7.5 % 10/26/24, Hgb: 12.6 10/23/24) CVA affecting left side, right handed Inpatient Diabetes Service Signing off 11/03/2024 Please call back with any questions, labile blood glucose readings, changes to steroid plan, changes to nutrition plan, or need updated glycemic control recommendations (please allow for 24-48 hours for this). Plan/Recommendations: - Continue PROFESSIONAL SERVICES CONSULTANT metformin 500 mg po daily, JAVIER - Continue Novolog via Omnipod 5 with Dexcom G7 in auto-mode with the following pump settings: Basal Rate: 0000 - 2359: 0.9 units/hr Total Manual Basal: 21.6 units/day *Should run in Auto mode- check at bedtime to make sure running in auto Insulin to carb ratio: 0000 - 2359: 10 Sensitivity factor: 0000 - 2359: 40 Target glucose: 120 (last changed 11/02/24 from 110) Correct above: 130 Reverse correction: off Active insulin time: 2.5 hours Pump Failure: - Lantus 22 units daily, Novolog 1 unit per 10 g of carb plus medium resistance correction >140 TID AC and >200 HS - BG monitoring: TID AC, HS, 0200 - Hypoglycemia protocol - Carb counting protocol Discussion: BG trending well on amb insulin pump. No hypoglycemia. Spoke with primary team, IDS will sign off on patinet today. See pump failure plan above if needed. Patient is able to self-manage amb insulin pump. He has back-up pump supplies and CGM when needed. Last changed Omnipod today. For discharge, discharge with current amb insulin pump settings. Doesn't need any diabetes suppliesprescribed at discharge. Has follow up with [facility] Emilia Mahoney 12/2024 and will reach out to be seen sooner if having any issues. Please notify Inpatient Diabetes Service if changes are planned to steroids, nutrition, TPN/TF and anticipated procedures requiring prolonged NPO status. Interval History/Review of Systems : - The last 24 hours progress and nursing notes reviewed. - No events overnight. - Feels well, had some mild nausea this morning without emesis. - Changing pod today. - Eager to discharge home. Planned Procedures/Surgeries: none Inpatient Glucose Control: Recent Labs Lab 11/03/24 0536 11/03/24 0158 11/02/24 2059 11/02/24 1706 11/02/24 1216 11/02/24 0726 GLC 133* 145* 119* 160* 141* 130* Medications Impacting Glycemia: Steroids: none D5W containing solutions/medications: none Other medications impacting glucose: none Nutrition: Orders Placed This Encounter Combination Diet Regular Diet; Thin Liquids (level 0) Supplements: none TF: none TPN: none Diabetes History: see full consult note for complete diabetes history PROFESSIONAL SERVICES CONSULTANT Medication Regimen: - Metformin 500mg daily - Novolog via Omnipod 5 with Dexcom G7 in auto-mode Pump settings (per chart review; no PDM at time of visit) Basal Rate: Midnight 0.9 units/hr Total Manual Basal: 21.6 units/day Insulin to carb ratio: 0000 10 Sensitivity factor: 0000 40 Target glucose: 110 Correct above: 120-130 Reverse correction: off Active insulin time: 2.5 hours Missing doses?: denies Historical Diabetes Medications: Metformin (started 2020), MDI, Omnipod insulin pump since 2020 Glucose monitoring device/frequency/trends: Dexcom G7; reports infrequent lows Hypoglycemia PROFESSIONAL SERVICES CONSULTANT: - Frequency: infrequent recently - Severity: no history of severe unconscious lows - Awareness: intact Outpatient Diabetes Provider: [facility] Endocrinology: Stephie Mahoney MD ([facility] 05/30/24) Formal Diabetes Education/Educator: yes - Federica Foster ([facility] 09/04/24) Physical Exam: BP (!) 158/80 Pulse 80 Temp 98.9 ??F (37.2 ??C) (Oral) Resp 16 Ht 1.778 m (5' 10) Wt 81.6 kg (180 lb) SpO2 95% BMI 25.83 kg/m?? General: well appearing, NAD, sitting up in chair. Lungs: unlabored breathing on RA. Psych: Cooperative, good eye contact, full/appropriate affect Data: Lab Results Component Value Date A1C 7.5 (H) 10/26/2024 A1C 6.7 (H) 04/18/2024 A1C 6.6 (H) 07/19/2023 A1C 6.8 (H) 10/13/2022 A1C 6.8 (H) 05/05/2022 A1C 5.1 06/20/2019 ROUTINE IP LABS (Last four results) BMP Recent Labs Lab 11/03/24 0536 11/03/24 0158 11/02/24205811/02/24 1706 10/31/24 0735 10/31/24 0613 10/30/24 0715 10/30/24 0619 10/28/24 0826 10/28/24 0618 NA -- -- -- -- -- 129* -- 126* -- -- POTASSIUM -- -- -- -- -- 4.1 -- 5.2 -- 4.5 CHLORIDE -- -- -- -- -- 92* -- 88* -- -- LUIS -- -- -- -- -- 8.7* -- 8.4* -- -- CO2 -- -- -- -- -- 28 -- 25 -- -- BUN -- -- -- -- -- 14.1 -- 11.7 -- -- CR -- -- -- -- -- 0.79 -- 0.68 -- -- GLC 133* 145* 119* 160* < > 159* < > 337* < > -- < > = values in this interval not displayed. CBC Recent Labs Lab 10/30/24618 WBC 8.3 RBC 3.76* HGB 11.4* HCT 32.9* MCV 88 MCH 30.3 MCHC 34.7 RDW 11.9 PLT 429 Inpatient Diabetes Service will continue to follow, please don't hesitate to contact the team with any questions or concerns. Mavis Dang PA-C Inpatient Diabetes Service Pager: [phone] Available on vocera Plan discussed with patient, bedside RN, and primary team via this note. To contact Inpatient Diabetes Service: 7 AM - 5 PM: Page the IDS HAYDE following the patient that day (see filed or incomplete progress notes/consult notes under Endocrinology) OR if uncertain of provider assignment: page job code [phone] 5 PM - 7 AM: First call after hours is to primary service. For urgent after-hours questions, page job code for news operations manager fellow: [phone] I spent a total of 40 minutes on the date of the encounter doing prep/post-work, chart review, history and exam, documentation and further activities per the note including lab review, multidisciplinary communication, counseling the patient and/or coordinating care regarding acute hyper/hypoglycemic management, as well as discharge management and planning/communication. 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 He presented to the ED on 10/12/2024 after a fall with L sided weakness. Of note, pt recently had influenza. Emergency department evaluation showed hypoxia [...] further intervention planned for pleural effusion and residu al atelectasis/trapped lung on CT imaging. His hospital course has been complicated by recrudescence of LUE/LLE weakness, acute hypoxic respiratory failure, R pleural effusion, afib with RVR with rates into 140's, hypotension, needing amiodarone infusion. Patient spontaneously converted to sinus rhythm. Neurology was consulted on 10/27 due to continued L sided weakness and previous MRI result that recommended repeat imaging due to showing Interval development of 1 cm linear focus of restricteddiffusion posterior to the right frontal resection cavity. Differential considerations include acute ischemia, posttreatment change, or recurrence. Neurology diagnosed an acute ischemic stroke of right frontal lobe possibly due to cardioembolism despite anticoagulation; some concern for hypercoagulability of malignancy given liver lesions. Patient reportedly had a fall event on day of discharge from [facility]. Patient reportedly had his legs buckled when he was throwing away tissue paper and bedroom. Patient denied having head trauma, loss of consciousness, shortness of breath, or fractures.[facility] SERVICE UNIT OPERATOR [employer]IL WELL consult received 10/31 for cognitive evaluation r/t history of astrocytoma and scar tissue resection (1998, 2004) and new right frontal CVA. General Observations Pt not followed by acute SERVICE UNIT OPERATOR [employer]IL WELL. Pt denied having any therapy services after brain surgeries. Pt agreeable to cognitive evaluation, reported remembering thinngs has always been hardfor him. Pt appeared to give full effort throughout assessment. Type of Evaluation Type of Evaluation Speech, Language, Cognition Motor Speech Speech Intelligibility (Motor Speech) WFL;conversational level Auditory Comprehension Follows Commands (Auditory Comprehension) WFL Verbal Expression Conversational Speech (Verbal Expression) WFL Cognition Cognitive Function attention deficit;executive function deficit;memory deficit Cognitive Status Alert, pleasant, cooperative Additional cognitive-linguistic evaluation indicated Completed Cognitive Status Exam Comments RBANS form A administered and interpreted, please see progress note/below for details. Orientation Status (Cognition) oriented to;person;place;situation;time Affect/Mental Status (Cognition) WFL Follows Commands (Cognition) WFL Executive Function Deficit (Cognition) (mild) Attention Deficit (Cognition) (mild) Memory Deficit (Cognition) (mild immediate and delayed) General Therapy Interventions Planned Therapy Interventions Cognitive Treatment Cognitive treatment Internal memory strategy training;External memory strategy training;Progressiveattention training Clinical Impression Criteria for Skilled Therapeutic Interventions Met (SERVICE UNIT OPERATOR [employer] Eval) Yes, treatment indicated SERVICE UNIT OPERATOR [employer] Diagnosis Mild cognitive impairment Problem List (SERVICE UNIT OPERATOR [employer]IL WELL) Hx of memory deficits per pt report Activity Limitations Related to Problem List (SERVICE UNIT OPERATOR [employer] WE[employer]) Increased assist/supervision with iADLs? Risks & Benefits of therapy have been explained evaluation/treatment results reviewed;care plan/treatment goals reviewed;participants voiced agreement with care plan;participants included;patient Clinical Impression Comments SERVICE UNIT OPERATOR [employer]IL WELL: Motor speech, language intact. RBANS form A administered and interpreted. Pt with rght/dominant upper extremity tremors, figure copy and recall task sdoring per clinical judgment considering effect of tremor on writing. Coding task modified due to tremor, SERVICE UNIT OPERATOR OIL WELL wrotenumber per pt dictation. Prior to test, pt reported long history of memory deficits; after word list learning task pt stated, A year ago, I wouldn't have been able to do that, either. Pt overall score in mild cognitive impairment range. Pt with moderate visuospatial deficits, mild immediate and delayed recall, mild attention deficits. Language score within normal limits. Given new right CVA, skilled SERVICE UNIT OPERATOR [employer]IL WELL services indicated to instruct in therapeutic exercises and activities to promote cognitive function and to determine level of assist, effective strategies to promote safety and independencein home environment. SERVICE UNIT OPERATOR [employer]IL WELL Total Evaluation Time Cognitive Performance Testing Minutes, per hour - includes time for administering test, interp results & prep report ([id number]) 60 SERVICE UNIT OPERATOR [employer]IL WE[employer] Goals Therapy Frequency (SERVICE UNIT OPERATOR OIL WE[employer] Eval) 6 times/week SERVICE UNIT OPERATOR [employer]IL WE[employer] Predicted Duration/Target Date for Goal Attainment 11/09/24 SERVICE UNIT OPERATOR [employer]IL WE[employer] Goals SERVICE UNIT OPERATOR [employer]IL [employer] Goal 1;SERVICE UNIT OPERATOR OIL WELL Goal 2 SERVICE UNIT OPERATOR [employer]IL WE[employer]: Goal 1 With use of trained memory strategies, pt will recall moderately complex information with 90% accuracy. SERVICE UNIT OPERATOR [employer]IL WE[employer]: Goal 2 Patient will complete high level reasoning, problem solving tasks with 90% or greater independent accuracy. SERVICE UNIT OPERATOR [employer]IL WELL Discharge Planning SERVICE UNIT OPERATOR [employer]IL WE[employer] Plan SERVICE UNIT OPERATOR [employer]IL WE[employer]: Edu in RBANS finding. Tx high level reasoning/problem solving. KELLIE as treatment. Intro memory strategies, long history of memory def. per pt report. SERVICE UNIT OPERATOR [employer]IL WELL Time and Intention Timed Code Treatment Minutes 60 Total Session Time (sum of timed and untimed services) 60 SERVICE UNIT OPERATOR OIL WE[facility] - Acute Rehab Center Time Individual Time (minutes) - SERVICE UNIT OPERATOR OIL WELL 60 ARC Total Session Time (minutes) - SERVICE UNIT OPERATOR OIL WELL 60 ARC Daily Total Session Time SERVICE UNIT OPERATOR OIL WELL ARC Daily Total Session Time 60 ARC Daily Rehab Total Minutes 60 Repeatable Battery for the Assessment of Neuropsychological Status (RBANS) FORM A Immediate Memory Visuospatial/ Constructional Language Attention Delayed Memory Total Scale Index Score 87 72 101 82 86 81 Percentile Rank 19 3 53 12 18 10 SERVICE UNIT OPERATOR [employer]IL WELL: Pt seen for administration of RBANS. Results are based on a mean of 100 and a standard deviation of +/- 15. Interpretation: Please see clinical impressions above. Face to Face Administration: 45 Scoring/Interpretation: 15 Total Time: 60 * Yudelka Del CastilloASHOK EIGHT ARM OPERATOR - 11/02/2024 5:59 AM CDT Images from the original note were not included. 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 Neurology was consulted due to continued left-sided weakness in which differential considerations included acute ischemia, posttreatment change, or recurrence. Neurology diagnosed an acute ischemic stroke of right frontal lobe due to cardioembolism despite anticoagulation. Inpatient Diabetes Service consulted for potentially restarting ambulatory insulin pump and glycemic adjustments. Assessment/Plan: Assessment: JAVIER treated as Type 1 Diabetes Mellitus complicated by macrovascular disease and hyperglycemia. Fair control (A1c 7.5 % 10/26/24, Hgb: 12.6 10/23/24) CVA affecting left side, right handed Plan/Recommendations: - Continue PROFESSIONAL SERVICES CONSULTANT metformin 500 mg po daily, JAVIER Omnipod pump 5 (reviewed settings 11/01) Dexcom 7 expires 11/08. He has a box of Omnipods in his room. Novolog via Omnipod 5 with Dexcom G7 in auto-mode Pump settings (Reviewed PDM) Basal Rate: Midnight 0.9 units/hr- Should run in Auto mode- check at bedtime to make sure running in auto Total Manual Basal: 21.6 units/day Insulin to carb ratio: 0000 10 Changed 10/31/2024 (PM) Sensitivity factor: 0000 40 Changed 11/02/2024 Target glucose: 120-130 ( Changed 11/02/24) Correct above: 120-130 Reverse correction: off Active insulin time: 2.5 hours Pump Failure: Lantus 27 units, High sliding scale, 1/50 and 1 unit of insulin for 10g of carb - BG monitoring: TID AC, HS, 0200 and 5 am per pump policy - Hypoglycemia protocol - Carb counting protocol Discussion: . After lunch yesterday, BG down to 65. Will reduce target glucose to 120 during the day and reduced ISF. Patient reports he may have overcompensated for carb coverage. Does not wish to change carb coverage today. Reports he would be open to changing carb coverage tomorrow if he went low again today. Required a basal of 31.5 units yesterday. BG this am at 1xm=841. Reports he has a box of Omnipods now. Please notify Inpatient Diabetes Service if changes are planned to steroids, nutrition, TPN/TF and anticipated procedures requiring prolonged NPO status. Interval History/Review of Systems : The last 24 hours progress and nursing notes reviewed. No events overnight. Planned Procedures/Surgeries: none Inpatient Glucose Control: Recent Labs Lab 11/02/24 0208 11/01/24 2154 11/01/24 1744 11/01/24 1116 11/01/24 0800 11/01/24 0623 GLC 164* 149* 123* 156* 144* 136* Medications Impacting Glycemia: Steroids: none D5W containing solutions/medications: none Other medications impacting glucose: none Nutrition: Orders Placed This Encounter Combination Diet Regular Diet; Thin Liquids (level 0) Supplements: none TF: none TPN: none Diabetes History: see full consult note for complete diabetes history PROFESSIONAL SERVICES CONSULTANT Medication Regimen: - Metformin 500mg daily - Novolog via Omnipod 5 with Dexcom G7 in auto-mode Pump settings (per chart review; no PDM at time of visit) Basal Rate: Midnight 0.9 units/hr Total Manual Basal: 21.6 units/day Insulin to carb ratio: 0000 10 Sensitivity factor: 0000 40 Target glucose: 110-120 Correct above: 120-130 Reverse correction: off Active insulin time: 2.5 hours Missing doses?: denies Historical Diabetes Medications: Metformin (started 2020), MDI, Omnipod insulin pump since 2020 Glucose monitoring device/frequency/trends: Dexcom G7; reports infrequent lows Hypoglycemia PROFESSIONAL SERVICES CONSULTANT: - Frequency: infrequent recently - Severity: no history of severe unconscious lows - Awareness: intact Outpatient Diabetes Provider: [facility] Endocrinology: Stephie Mahoney MD ([facility] 05/30/24) Formal Diabetes Education/Educator: yes - Federica Foster ([facility] 09/04/24) Physical Exam: BP 117/66 (BP Location: Right arm, Patient Position: Semi-Suh's) Pulse 77 Temp 98 ??F (36.7 ??C) (Oral) Resp 16 Ht 1.778 m (5' 10) Wt 81.6 kg (180 lb) SpO2 95% BMI 25.83 kg/m?? General: well appearing, in no acute distress. HEENT: sclera not injected Lungs: no SOB on RA Skin: warm and dry, no obvious lesions MSK: moving all extremities Lymp: no LE edema Neuro: Alert and oriented x3, tremor Psych: Cooperative, good eye contact, full/appropriate affect Data: Lab Results Component Value Date A1C 7.5 (H) 10/26/2024 A1C 6.7 (H) 04/18/2024 A1C 6.6 (H) 07/19/2023 A1C 6.8 (H) 10/13/2022 A1C 6.8 (H) 05/05/2022 A1C 5.1 06/20/2019 ROUTINE IP LABS (Last four results) BMP Recent Labs Lab 11/02/24 0208 11/01/24 2154 11/01/24 1744 11/01/24 1116 10/31/24 0735 10/31/24 0613 10/30/24 0715 10/30/24 0619 10/28/24 0826 10/28/24 0618 NA -- -- -- -- -- 129* -- 126* -- -- POTASSIUM -- -- -- -- -- 4.1 -- 5.2 -- 4.5 CHLORIDE -- -- -- -- -- 92* -- 88* -- -- LUIS -- -- -- -- -- 8.7* -- 8.4* -- -- CO2 -- -- -- -- -- 28 -- 25 -- -- BUN -- -- -- -- -- 14.1 -- 11.7 -- -- CR -- -- -- -- -- 0.79 -- 0.68 -- -- GLC 164* 149* 123* 156* < > 159* < > 337* < > -- < > = values in this interval not displayed. CBC Recent Labs Lab 10/30/24 0619 WBC 8.3 RBC 3.76* HGB 11.4* HCT 32.9* MCV 88 MCH 30.3 MCHC 34.7 RDW 11.9 PLT 429 INRNo lab results found in last 7 days. Inpatient Diabetes Service will continue to follow, please don't hesitate to contact the team with any questions or concerns. Yudelka Del Castillo APRN CNP Plan discussed with patient, bedside RN, and primary team via this note. To contact Inpatient Diabetes Service: 7 AM - 5 PM: Page the IDS HAYDE following the patient that day (see filed or incomplete progress notes/consult notes under Endocrinology) OR if uncertain of provider assignment: page job code [phone] 5 PM - 7 AM: First call after hours is to primary service. For urgent after-hours questions, page job code for news operations manager fellow: [phone] I spent a total of 45 minutes on the date of the encounter doing prep/post-work, chart review, history and exam, documentation and further activities per the note including lab review, multidisciplinary communication, counseling the patient and/or coordinating care regarding acute hyper/hypoglycemic management, as well as discharge management and planning/communication. * Yudelka Del Castillo APRN CNP - 11/01/2024 9:16 AM CDT Images from the original note were not included. 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 Neurology was consulted due to continued left-sided weakness in which differential considerations included acute ischemia, posttreatment change, or recurrence. Neurology diagnosed an acute ischemic stroke of right frontal lobe due to cardioembolism despite anticoagulation. Inpatient Diabetes Service consulted for potentially restarting ambulatory insulin pump and glycemic adjustments. Assessment/Plan: Assessment: JAVIER treated as Type 1 Diabetes Mellitus complicated by macrovascular disease and hyperglycemia. Fair control (A1c 7.5 % 10/26/24, Hgb: 12.6 10/23/24) CVA affecting left side, right handed Plan/Recommendations: - Continue PROFESSIONAL SERVICES CONSULTANT metformin 500 mg po daily, JAVIER Omnipod pump 5 (reviewed settings 11/01) Dexcom 7 has 8 days left He has a box of Omnipods in his room. Novolog via Omnipod 5 with Dexcom G7 in auto-mode Pump settings (Reviewed PDM) Basal Rate: Midnight 0.9 units/hr- Should run in Auto mode- check at bedtime to make sure running in auto Total Manual Basal: 21.6 units/day Insulin to carb ratio: 0000 10 Changed 10/31/2024 (PM) Sensitivity factor: 0000 35 Changed 10/31/2024 (aM) Target glucose: 110-120 Correct above: 120-130 Reverse correction: off Active insulin time: 2.5 hours Pump Failure: Lantus 27 units, High sliding scale, / and 1 unit of insulin for 5g of carb - BG monitoring: TID AC, HS, 0200 and 5 am per pump policy - Hypoglycemia protocol - Carb counting protocol needs to bring in more pods and a Dexcom 7 to have on hand Discussion: . BG this am at [id number] Overnight 231 Reviewed with patient. Per patient, he felt like 1 per 5 carbratio was too aggressive when he bolused for carbs for dinner last evening. He switch it back to what he had changed it to when he saw Roma Kristin on 09/04/24, a 1 per 10. He would like to trial 1 per 10 today and see how he trends. Discharge Planning: (tentative) Medications: TBD, home on pump Test Claims: none Education: Needs to be assessed closer to discharge. Outpatient Follow-up: Dr Mahoney, [facility] Endocrinology Please notify Inpatient Diabetes Service if changes are planned to steroids, nutrition, TPN/TF and anticipated procedures requiring prolonged NPO status. Interval History/Review of Systems : The last 24 hours progress and nursing notes reviewed. No events overnight. Planned Procedures/Surgeries: =none Inpatient Glucose Control: Recent Labs Lab 11/01/24 0800 11/01/24 0623 11/01/24 0205 10/31/24 2159 10/31/24 1709 10/31/24 1152 GLC 144* 136* 201* 124* 231* 224* Medications Impacting Glycemia: Steroids: none D5W containing solutions/medications: none Other medications impacting glucose: none Nutrition: Orders Placed This Encounter Combination Diet Regular Diet; Thin Liquids (level 0) Supplements: none TF: none TPN: none Diabetes History: see full consult note for complete diabetes history PROFESSIONAL SERVICES CONSULTANT Medication Regimen: - Metformin 500mg daily - Novolog via Omnipod 5 with Dexcom G7 in auto-mode Pump settings (per chart review; no PDM at time of visit) Basal Rate: Midnight 0.9 units/hr Total Manual Basal: 21.6 units/day Insulin to carb ratio: 0000 10 Sensitivity factor: 0000 40 Target glucose: 110-120 Correct above: 120-130 Reverse correction: off Active insulin time: 2.5 hours Missing doses?: denies Historical Diabetes Medications: Metformin (started 2020), MDI, Omnipod insulin pump since 2020 Glucose monitoring device/frequency/trends: Dexcom G7; reports infrequent lows Hypoglycemia PROFESSIONAL SERVICES CONSULTANT: - Frequency: infrequent recently - Severity: no history of severe unconscious lows - Awareness: intact Outpatient Diabetes Provider: [facility] Endocrinology: Stephie Mahoney MD ([facility] 05/30/24) Formal Diabetes Education/Educator: yes - Federica Foster ([facility] 09/04/24) Physical Exam: BP 133/70 (BP Location: Right arm, Patient Position: Chair, Cuff Size: Adult Regular) Pulse 80 Temp 98.3 ??F (36.8 ??C) (Oral) Resp 16 Ht 1.778 m (5' 10) Wt 81.6 kg (180 lb) SpO2 94% BMI 25.83 kg/m?? General: well appearing, in no acute distress. HEENT: sclera not injected Lungs: no SOB on RA Skin: warm and dry, no obvious lesions MSK: moving all extremities Lymp: no LE edema Neuro: Alert and oriented x3, tremor Psych: Cooperative, good eye contact, full/appropriate affect Data: Lab Results Component Value Date A1C 7.5 (H) 10/26/2024 A1C 6.7 (H) 04/18/2024 A1C 6.6 (H) 07/19/2023 A1C 6.8 (H) 10/13/2022 A1C 6.8 (H) 05/05/2022 A1C 5.1 06/20/2019 ROUTINE IP LABS (Last four results) BMP Recent Labs Lab 11/01/24 0800 11/01/24 0623 11/01/24 0205 10/31/24 2159 10/31/24 0735 10/31/24 0613 10/30/24 0715 10/30/24 0619 10/28/24 0826 10/28/24 0618 NA -- -- -- -- -- 129* -- 126* -- -- POTASSIUM -- -- -- -- -- 4.1 -- 5.2 -- 4.5 CHLORIDE -- -- -- -- -- 92* -- 88* -- -- LUIS -- -- -- -- -- 8.7* -- 8.4* -- -- CO2 -- -- -- -- -- 28 -- 25 -- -- BUN -- -- -- -- -- 14.1 -- 11.7 -- -- CR -- -- -- -- -- 0.79 -- 0.68 -- -- GLC 144* 136* 201* 124* < > 159* < > 337* < > -- < > = values in this interval not displayed. CBC Recent Labs Lab 10/30/24 0619 WBC 8.3 RBC 3.76* HGB 11.4* HCT 32.9* MCV 88 MCH 30.3 MCHC 34.7 RDW 11.9 PLT 429 INRNo lab results found in last 7 days. Inpatient Diabetes Service will continue to follow, please don't hesitate to contact the team with any questions or concerns. Yudelka Del Castillo APRN CNP Plan discussed with patient, bedside RN, and primary team via this note. To contact Inpatient Diabetes Service: 7 AM - 5 PM: Page the Imm[employer] HAYDE following the patient that day (see filed or incomplete progress notes/consult notes under Endocrinology) OR if uncertain of provider assignment: page job code [phone] 5 PM - 7 AM: First call after hours is to primary service. For urgent after-hours questions, page job code for news operations manager fellow: [phone] I spent a total of 45 minutes on the date of the encounter doing prep/post-work, chart review, history and exam, documentation and further activities per the note including lab review, multidisciplinary communication, counseling the patient and/or coordinating care regarding acute hyper/hypoglycemic management, as well as discharge management and planning/communication. * Patt Springer MD - 11/01/2024 8:48 AM CDT Images from the original note were not included. [facility] Acute Rehabilitation Unit Weekend Progress Note INTERVAL HISTORY Santy Glez was seen and examined at bedside. No acute events reported overnight. Incontinentof loose BM overnight. Patient is doing well overall. Therapies going well. Generally sleeps prettywell, denies pain. Feels therapies are going well. No issues with bowel/bladder other than episode of incontinence last night. Appetite is doing well. Patient denied any further questions/concerns atthis time. Functionally, Patient continues to be a full participant with therapies. ROS: 10 point ROS negative other than the symptoms noted above in the HPI. MEDICATIONS Current Facility-Administered Medications Medication Dose Route Frequency Provider Last Rate Last Admin amiodarone (PACERONE) tablet 200 mg 200 mg Oral Daily Zee Espana PA-C 200 mg at 11/01/24828 apixaban ANTICOAGULANT (ELIQUIS) tablet 5 mg 5 mg Oral BID Zee Espana PA-C 5 mg at 11/01/24828 atorvastatin (LIPITOR) tablet 40 mg 40 mg Oral QPM Zee Espana PA-C 40 mg at 10/31/242108 cholecalciferol (VITAMIN D3) capsule 125 mcg 125 mcg Oral Daily Zee Espana PA-C 125 mcg at 11/01/24828 diclofenac (VOLTAREN) 1 % topical gel 2 g 2 g Topical 4x Daily Zee Espana PA-C 2 g at 10/31/242109 ezetimibe (ZETIA) tablet 10 mg 10 mg Oral QPM Zee Espana PA-C 10 mg at 10/31/242108 guaiFENesin (MUCINEX) 12 hr tablet 600 mg 600 mg Oral BID Zee Espana PA-C 600 mg at 11/01/24828 insulin aspart (NovoLOG/FIASP) 100 UNIT/ML VIAL FOR FILLING PUMP RESERVOIR Device See Admin Instructions Tova Levy PA-C 1 vial at 10/31/24 1654 insulin bolus from AMBULATORY PUMP Subcutaneous 4x Daily AC & HS Tova Levy PA-C Given at 11/01/24 0832 insulin bolus from AMBULATORY PUMP Subcutaneous TID AC Tova Levy PA-C Given at 11/01/24 0832 lamoTRIgine (LaMICtal) tablet 300 mg 300 mg Oral BID Zee Espana PA-C 300 mg at 11/01/24 0829 Lidocaine (LIDOCARE) 4 % Patch 2 patch 2 patch Transdermal Q24H Zee Espana PA-C 2 patch at 10/31/24 0755 lisinopril (ZESTRIL) tablet 30 mg 30 mg Oral Daily Zee Espana PA-C 30 mg at 11/01/24 0829 magnesium oxide (MAG-OX) tablet 400 mg 400 mg Oral Daily Zee Espana PA-C 400 mg at 11/01/24 0829 metFORMIN (GLUCOPHAGE) tablet 500 mg 500 mg Oral Daily with supper Zee Espana PA-C 500 mgat 10/31/24 1655 metoprolol succinate ER (TOPROL XL) 24 hr tablet 50 mg 50 mg Oral BID Zee Espana PA-C 50mg at 11/01/24 0829 miconazole (MICATIN) 2 % powder Topical BID Zee Espana PA-C Given at 10/31/24 2110 multivitamin w/minerals (THERA-VIT-M) tablet 1 tablet 1 tablet Oral Daily Zee Espana PA-C1 tablet at 11/01/24 0829 psyllium (METAMUCIL/KONSYL) capsule 5 capsule 5 capsule Oral Daily Zee Espana PA-C 5 capsule at 11/01/24 0829 Current Facility-Administered Medications Medication Dose Route Frequency Provider Last Rate Last Admin acetaminophen (TYLENOL) tablet 650 mg 650 mg Oral Q4H PRN Zee Espana PA-C 650 mg at 10/31/24 1245 benzonatate (TESSALON) capsule 100 mg 100 mg Oral TID PRN Zee Espana PA-C glucose gel 15-30 g 15-30 g Oral Q15 Min PRN Zee Espana PA-C Or dextrose 50 % injection 25-50 mL 25-50 mL Intravenous Q15 Min PRN Zee Espana PA-C Or glucagon injection 1 mg 1 mg Subcutaneous Q15 Min PRN Zee Espana PA-C melatonin tablet 3 mg 3 mg Oral At Bedtime PRN Zee Espana PA-C 3 mg at 10/31/242117 naloxone (NARCAN) injection 0.2 mg 0.2 mg Intravenous Q2 Min PRN Finn Monroe DO Or naloxone (NARCAN) injection 0.4 mg 0.4 mg Intravenous Q2 Min PRN Finn Monroe, Or naloxone (NARCAN) injection 0.2 mg 0.2 mg Intramuscular Q2 Min PRN Finn Monroe, Or naloxone (NARCAN) injection 0.4 mg 0.4 mg Intramuscular Q2 Min PRN Finn Monroe, DO oxyCODONE (ROXICODONE) tablet 5 mg 5 mg Oral BID PRN Zee Espana PA-C 5 mg at 10/30/24 0251 Patient is already receiving anticoagulation with heparin, enoxaparin (LOVENOX), warfarin (COUMADIN) or other anticoagulant medication Does not apply Continuous PRN Zee Espana PA-C senna-docusate (SENOKOT-S/PERICOLACE) 8.6-50 MG per tablet 1 tablet 1 tablet Oral BID PRN Zee Espana PA-C tiZANidine (ZANAFLEX) tablet 2-4 mg 2-4 mg Oral Q8H PRN Zee Espana PA- C 2 mg at 10/31/242109 PHYSICAL EXAM BP 133/70 (BP Location: Right arm, Patient Position: Chair, Cuff Size: Adult Regular) Pulse 80 Temp 98.3 ??F (36.8 ??C) (Oral) Resp 16 Ht 1.778 m (5' 10) Wt 81.6 kg (180 lb) SpO2 94% BMI 25.83 kg/m?? General: Awake, alert, sitting comfortably in chair HEENT: Normocephalic, well healed scar on scalp, MMM Cardiac: No cyanosis, no LE edema, extremities well perfused Pulm: Breathing comfortably on RA, equal bilateral chest rise GI: Nondistended MSK: Moving all extremities spontaneously against gravity. Formal strength exam not completed today. Neuro: No obvious new focal neurological deficits on gross examination. LABS Recent Results (from the past 24 hours) Glucose by meter Collection Time: 10/31/24 11:52 AM Result Value Ref Range GLUCOSE BY METER POCT 224 (H) 70 - 99 mg/dL Glucose by meter Collection Time: 10/31/24 5:09 PM Result Value Ref Range GLUCOSE BY METER POCT 231 (H) 70 - 99 mg/dL Glucose by meter Collection Time: 10/31/24 9:59 PM Result Value Ref Range GLUCOSE BY METER POCT 124 (H) 70 - 99 mg/dL Glucose by meter Collection Time: 11/01/24 2:05 AM Result Value Ref Range GLUCOSE BY METER POCT 201 (H) 70 - 99 mg/dL Glucose by meter Collection Time: 11/01/24 6:23 AM Result Value Ref Range GLUCOSE BY METER POCT 136 (H) 70 - 99 mg/dL Glucose by meter Collection Time: 11/01/24 8:00 AM Result Value Ref Range GLUCOSE BY METER POCT 144 (H) 70 - 99 mg/dL ASSESSMENT AND PLAN Santy Glez is a 63 year old male admitted to [facility] for acute inpatient rehabilitation. ARU Diagnosis: Stroke Ischemic 01.1 (L) Body Involvement (R) Brain: Acute ischemic stroke of right frontal lobe possibly due to cardioembolism despite anticoagulation; some concern for hypercoagulability of malignancy given liver lesions Rehabilitation - Continue comprehensive acute inpatient rehabilitation program with multidisciplinary approach including therapies, rehab nursing, and physiatry following. See interval history for updates. - Vitals stable. Labs reviewed. No concerns from charge nurse. - Continue ongoing medical management. - Continue therapies and plan of care. - Refer to last progress note from primary team for full problems list. Patient reviewed with attending physician, Dr. Barksdale, who agrees with the assessment and plan. Patt Miles MD [facility] PM&R PGY-2 11/01/2024 Pager #: [phone] Cosigned by Noemi Barksdale MD at 11/01/2024 3:39 PM CDT Associated attestation - Noemi Barksdale MD - 11/01/2024 3:39 PM CDT Physician Attestation I personally examined and evaluated this patient. I discussed the patient with the resident/fellow and care team, and agree with the assessment and plan of care as documented in the note. Remy findings: No acute events and no concerns or complaints other than wanting to discharge home. Ongoing endocrine assistance with diabetes/insulin pump management appreciated. Continue with currentplan of care without any changes. Please see A&P for additional details of medical decision making. Labs reviewed: Recent Labs Lab 11/01/24 1116 11/01/24 0800 11/01/24 0623 11/01/24 0205 10/31/24 2159 10/31/24 1709 GLC 156* 144* 136* 201* 124* 231* Noemi Barksdale MD Date of Service (when I saw the patient): 11/01/24 * Juana Saleem - 10/31/2024 4:31 PM CDT 10/31/24 1600 Signing Clinician's Name / Credentials Signing clinician's name / credentials MIRNA Black Aiken Balance Scale (DARREN Mckeon, LISA S, PAMELA CONDE, CINDY, B: MEASURING BALANCE IN THE ELDERLY: VALIDATION OF AN INSTRUMENT. CAN. J. PUB. HEALTH, SUPPLEMENT 2:S7-11, 1991.) Sit To Stand 2 Standing Unsupported 3 Sitting Unsupported 4 Stand to Sit 3 Transfers 1 Standing with Eyes Closed 3 Standing Unsupported, Feet Together 1 Reach Forward With Outstretched Arm 1 Retrieve Object From Floor 0 Turning to Look Behind 0 Turn 360 Degrees 0 Placing Alternate Foot on Stool (4-6 inches) 0 Unsupported Tandem Stand (Demonstrate to Subject) 0 One Leg Stand 1 Total Score (A score of 45 or less has been correlated with an increased risk of falls) Total Score (out of 56) 19 Aiken Balance Scale (BBS) Cutoff Scores for CVA Population: The BBS is a measure of static and dynamic standing balance that has been validated in community dwelling elderly individuals and individuals who have Parkinson's Disease, MS, and those who are s/p CVA and TBI. The test is administered without an assistive device. Scores from the Aiken are used to de termine the probability of falling based on the patient's previous history of falls and their test performance. 0-20 High risk for falling- Corresponded with w/c bound status 21-40 Medium risk for falling- Able to walk with assistance 41-56 Low risk for falling- Able to walk independently According to [facility]. Available at http://www.strokecenter.org/. Accessibility verified November 27, 2012. Minimal Detectable Change = 6.5 according to Jose & Juan Joseey 2008 Assessment (rationale for performing, application to patient s function & care plan): Pt scored low which indicates he is at a high risk for falls which correlates with the coordination and dynamic gait instability identified upon eval. (Minutes billed as physical performance test) Cosigned by Ashley Nix, PT at 10/31/2024 4:44 PM CDT Associated attestation - Ashley Nix PT - 10/31/2024 4:44 PM CDT Ashley Jameson DPT agree with the assessment and POC of MIRNA Black. * Finn Monroe DO - 10/31/2024 3:42 PM CDT Individualized Overall Plan Of Care (IOPOC) Rehab diagnosis/Impairment Group Code: Stroke ischemic 01.1 (l) body involvement (r) brain: acute ischemic stroke of right frontal lobe possibly due to cardioembolism despite anticoagulation; some concern for hypercoagulability of malignancy given liver lesions Ischemic stroke (h) Expected functional outcome: reach a level of mod I Clinical Impression Comments: L hemiparesis and gait instability post CVA Mobility: 63 y/o male with hx of brain astrocytoma s/p resection (1998), who presented to ED after a fall. Pt was found to have acute hypoxic failure requiring 2-5 LPM via NC during hospitalization, PNA with R loculated pleural effusion, and acute ischemic stroke of R frontal lobe. Pt presents to ARU with diminished coordination, balance, and endurance limiting ability to perform bed mobility, transfers, ambulation, and stairs. Pt will benefit from ~10 days of skilled therapy in ARU setting with goals to return to [place] PLOF and reduce risk of falls. ADL: Pt would benefit from skilled OT services while in ARU setting to increase ind with ADL/IADL prior to DC. 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 [facility] Acute Rehabilitation Unit Daily progress note INTERVAL HISTORY Nursing notes reviewed. Vitals reviewed. BP 144/83 this morning. Nursing notes reviewed. Labs drawnthis morning. Sodium 129. Endocrine following. Patient reports feeling well this morning. Patient slept better last night. Denies any pain at thistime. Last bowel movement 10/30. Discussed with patient in regards with diabetes management with insulin pump and is being managed with endocrine. Discussed with patient about lab results as well. Sodium 129, improved from 126. Explained to patient that we will continue monitoring sodium for now. Will keep fluid restrictions at this time. No other questions or concerns at this time. LBM 10/30. Functionally: PT (10/30/24) Current Status: Bed Mobility: Art with HOB flat no rails Transfer: STS to FWW CGA, SPT with CGA-Art Gait: 200' with FWW and Art with turns Stairs: Art with R rail for balance, verbal cues for safety Balance: good static sitting, fair+ dynamic sitting, fair- static and dynamic standing OT (10/31/24) Current Status: ADLs: Mobility: CGA-Min A with 2ww Grooming: SBA seated Dressing: LB: min A, SBA socks/shoes, UB: SBA Bathing: bathing min A Toileting: CGA transfer with grab bars IADLs: Pt was completely ind with IADLs at baseline. Vision/Cognition: Pt impulsive at times, vision and cognition seems unchanged from baseline per pt report. MEDICATIONS Scheduled meds Current Facility-Administered Medications Medication Dose Route Frequency Provider Last Rate Last Admin amiodarone (PACERONE) tablet 200 mg 200 mg Oral Daily Zee Espana PA-C 200 mg at 10/31/24 0751 apixaban ANTICOAGULANT (ELIQUIS) tablet 5 mg 5 mg Oral BID Zee Espana PA-C 5 mg at 10/31/24 0934 atorvastatin (LIPITOR) tablet 40 mg 40 mg Oral QPM Zee Espana PA-C 40 mg at 10/30/242038 cholecalciferol (VITAMIN D3) capsule 125 mcg 125 mcg Oral Daily Zee Espana PA-C 125 mcg at 10/31/24 0751 diclofenac (VOLTAREN) 1 % topical gel 2 g 2 g Topical 4x Daily Zee Espana PA-C 2 g at 10/31/24 1240 ezetimibe (ZETIA) tablet 10 mg 10 mg Oral QPM Zee Espana PA-C 10 mg at 10/30/242038 guaiFENesin (MUCINEX) 12 hr tablet 600 mg 600 mg Oral BID Zee Espana PA-C 600 mg at 10/31/24 0934 insulin aspart (NovoLOG) injection (RAPID ACTING) 1-10 Units Subcutaneous TID AC Tova Levy PA-C 4 Units at 10/31/24 1233 insulin aspart (NovoLOG/FIASP) 100 UNIT/ML VIAL FOR FILLING PUMP RESERVOIR Device See Admin Instructions Tova Levy PA-C insulin bolus from AMBULATORY PUMP Subcutaneous 4x Daily AC & HS Tova Levy PA-C insulin bolus from AMBULATORY PUMP Subcutaneous TID AC Tova Levy PA-C lamoTRIgine (LaMICtal) tablet 300 mg 300 mg Oral BID Zee Espana PA-C 300 mg at 10/31/24 0939 Lidocaine (LIDOCARE) 4 % Patch 2 patch 2 patch Transdermal Q24H Zee Espana PA-C 2 patch at 10/31/24 0755 lisinopril (ZESTRIL) tablet 30 mg 30 mg Oral Daily Zee Espana PA-C 30 mg at 10/31/24 0751 magnesium oxide (MAG-OX) tablet 400 mg 400 mg Oral Daily Zee Espana PA-C 400 mg at 10/31/24 0751 metFORMIN (GLUCOPHAGE) tablet 500 mg 500 mg Oral Daily with supper Zee Espana PA-C 500 mgat 10/30/24 1643 metoprolol succinate ER (TOPROL XL) 24 hr tablet 50 mg 50 mg Oral BID Zee Espana PA-C 50 mg at 10/31/24 0934 miconazole (MICATIN) 2 % powder Topical BID Zee Espana PA-C Given at 10/31/24 0937 multivitamin w/minerals (THERA-VIT-M) tablet 1 tablet 1 tablet Oral Daily Zee Espana PA-C1 tablet at 10/31/24 0751 psyllium (METAMUCIL/KONSYL) capsule 5 capsule 5 capsule Oral Daily Zee Espana PA-C 5 capsule at 10/31/24 0751 PRN meds: Current Facility-Administered Medications Medication Dose Route Frequency Provider Last Rate Last Admin acetaminophen (TYLENOL) tablet 650 mg 650 mg Oral Q4H PRN Zee Espana PA-C 650 mg at 10/31/24 1245 benzonatate (TESSALON) capsule 100 mg 100 mg Oral TID PRN Zee Espana PA-C glucose gel 15-30 g 15-30 g Oral Q15 Min PRN Zee Espana PA-C Or dextrose 50 % injection 25-50 mL 25-50 mL Intravenous Q15 Min PRN Zee Espana PA-C Or glucagon injection 1 mg 1 mg Subcutaneous Q15 Min PRN Zee Espana PA-C insulin aspart (NovoLOG) injection (RAPID ACTING) Subcutaneous With Snacks or Supplements Alba Gasca PA melatonin tablet 3 mg 3 mg Oral At Bedtime PRN Zee Espana PA-C naloxone (NARCAN) injection 0.2 mg 0.2 mg Intravenous Q2 Min PRN Finn Monroe DO Or naloxone (NARCAN) injection 0.4 mg 0.4 mg Intravenous Q2 Min PRN Finn Monroe, Or naloxone (NARCAN) injection 0.2 mg 0.2 mg Intramuscular Q2 Min PRN Finn Monroe, Or naloxone (NARCAN) injection 0.4 mg 0.4 mg Intramuscular Q2 Min PRN Finn Monore DO oxyCODONE (ROXICODONE) tablet 5 mg 5 mg Oral BID PRN Zee Espana PA-C 5 mg at 10/30/24 0251 Patient is already receiving anticoagulation with heparin, enoxaparin (LOVENOX), warfarin (COUMADIN) or other anticoagulant medication Does not apply Continuous PRN Zee Espana PA-C senna-docusate (SENOKOT-S/PERICOLACE) 8.6-50 MG per tablet 1 tablet 1 tablet Oral BID PRN Zee Espana PA-C tiZANidine (ZANAFLEX) tablet 2-4 mg 2-4 mg Oral Q8H PRN Zee Espana PA- C 2 mg at 10/30/248 PHYSICAL EXAM BP (!) 144/83 (BP Location: Right arm) Pulse 83 Temp 97.5 ??F (36.4 ??C) (Oral) Resp 16 Ht 1.778 m (5' 10) Wt 81.6 kg (180 lb) SpO2 95% BMI 25.83 kg/m?? General: Laying in bed, no acute distress HEENT: Previous head surgery scar appreciated on right side of head. Anisocoria appreciated on lefteye Pulmonary: Breathing comfortably on room air Cardiovascular: No leg edema Abdominal: Non-tender, non-distended Extremities: warm, well perfused, no edema in bilateral lower extremities, no tenderness in calves.Decreased range of motion with left upper extremity MSK/neuro: alert and oriented x3. Essential tremors appreciated with bilateral upper extremity L > R LABS Recent Results (from the past 24 hours) Glucose by meter Collection Time: 10/30/24 5:11 PM Result Value Ref Range GLUCOSE BY METER POCT 168 (H) 70 - 99 mg/dL Glucose by meter Collection Time: 10/30/24 10:05 PM Result Value Ref Range GLUCOSE BY METER POCT 147 (H) 70 - 99 mg/dL Glucose by meter Collection Time: 10/31/24 2:21 AM Result Value Ref Range GLUCOSE BY METER POCT 125 (H) 70 - 99 mg/dL Glucose by meter Collection Time: 10/31/24 5:59 AM Result Value Ref Range GLUCOSE BY METER POCT 128 (H) 70 - 99 mg/dL Basic metabolic panel Collection Time: 10/31/24 6:13 AM Result Value Ref Range Sodium 129 (L) 135 - 145 mmol/L Potassium 4.1 3.4 - 5.3 mmol/L Chloride 92 (L) 98 - 107 mmol/L Carbon Dioxide (CO2) 28 22 - 29 mmol/L Anion Gap 9 7 - 15 mmol/L Urea Nitrogen 14.1 8.0 - 23.0 mg/dL Creatinine 0.79 0.67 - 1.17 mg/dL GFR Estimate >90 >60 mL/min/1.73m2 Calcium 8.7 (L) 8.8 - 10.4 mg/dL Glucose 159 (H) 70 - 99 mg/dL Extra Purple Top Tube Collection Time: 10/31/24 6:13 AM Result Value Ref Range Hold Specimen JIC Glucose by meter Collection Time: 10/31/24 7:35 AM Result Value Ref Range GLUCOSE BY METER POCT 192 (H) 70 - 99 mg/dL Glucose by meter Collection Time: 10/31/24 11:52 AM Result Value Ref Range GLUCOSE BY METER POCT 224 (H) 70 - 99 mg/dL ASSESSMENT AND PLAN Santy Glez is a 63 year old right-handed 80 ARU dominant male with a past medical history oftype I diabetes, seizures, 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 Patient recently had influenza. CT chest showed right lower lung pneumonia, right pleural effusion and multiple liver lesions. Patient was treated with antibiotics. Patient underwent thoracentesis. Chest tube placed on 10/16 for loculated effusion. S/p t PA BID 10/20-10/23 to improve drainage and tube was removed on 10/24. No further management per thoracic surgery. Hospital course further complicated by atrial fibrillation with RVR which patient required amiodarone infusion. Spontaneously reverted back to sinus rhythm. Neurology was consulted due to continued left- sided weakness in which differential considerations included acute ischemia, posttreatment change, or recurrence. Neurology diagnosed an acute ischemic stroke of right frontal lobe due to cardioembolism despite anticoagulation. Admission to acute inpatient rehab 10/29/24. 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 Impairment of ADL's: Impairment in strength, endurance, and ROM resulting in functional limitationsin patient's ability to perform ADLs Impairment of mobility: Impairment in strength, endurance, and ROM resulting in functional limitations in patient's ability to perform functional mobility Medical Conditions #Acute hypoxic respiratory failure, resolved #Suspect postviral syndrome bacterial community-acquired pneumonia and right lower lung, resolved #Right parapneumonic effusion, resolved #Acute metabolic encephalopathy, likely related to above with falls, resolved #Cough, improving Patient arrived to ED on 10/12 presenting with fall, left-sided weakness and hypoxia. Of note, patient recently had influenza. CT chest showed right lower lung pneumonia, right pleural effusion and multiple liver lesions. Chest x-ray on 10/14 showed increasing right pleural effusion. Pulmonary was consulted. Patient was initially treated with Rocephin and Zithromax. This was changed to Zosyn on 10/14. Pulmonary consulted. Patient initially required 5 L of oxygen. Patient underwent thoracentesis. Chest tube placed on 10/16 for loculated effusion. S/p tPA BID 10/20-10/[address] chest on 10/23 showed improvement in pleural effusion with persistent right sided atelectasis, Chest tube wasremoved on 10/24. Pleural fluid cultures negative. Total course of antibiotics was 14 days, stop dateof Zosyn was on 10/28. Thoracic surgery consulted for residual pleural effusion and atelectasis following chest tube drainage. No recommendations for further intervention at this time. -Continue to assess respiratory status while on room air -Follow-up with thoracic surgery in [address] chest scan -For cough: Guaifenesin 600 mg bid, benzonatate 100 mg TID prn #History of right frontal lobe astrocytoma with resection, 1998 #Seizure disorder #Recrudescence of left upper and lower extremity weakness related to acute illness #Possible right ischemic stroke of frontal lobe Patient has chronic left arm and left leg weakness with astrocytoma that improved after treatment. Patient reportedly has recurrence of this weakness when patient is ill. Neurology was consulted on 10/27 due to continued L sided weakness and previous MRI result that recommended repeat imaging due toshowing Interval development of 1 cm linear focus of restricted diffusion posterior to the right frontal resection cavity. Differential considerations include acute ischemia, posttreatment change, orrecurrence. Neurology diagnosed an acute ischemic stroke of right frontal lobe possibly due to cardioembolism despite anticoagulation; some concern for hypercoagulability of malignancy given liver lesions. 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 Patient was able to convert to sinus rhythm on 10/15. Patient transitioned to oral amiodarone on 10/16 and will continue for 1 month. There is noted that patient intermittently was back in a trial fibrillation with borderline rate control starting on 10/17. Patient was transitioned from carvedilol 12.5 mg twice daily to Toprol-XL 50mg bid with good effect and conversion back to normal sinus rhythm -Oral amiodarone 200 mg x1 month (10/16/24-11/13/24) -Toprol-XL 50mg bid -Continue PROFESSIONAL SERVICES CONSULTANT apixaban 5mg bid -Ziopatch after rehab to measure atrial fibrillation burden vs loop recorder #Insulin-dependent diabetes, Type I #Hyperglycemia, improved Patient historically has been on insulin pump as well as metformin. Patient normally manages insulin pump but has not been eating well or feeling well so this was stopped during hospital stay. [id number] on 10/26/24. -Hypoglycemia protocol -BG checks QID before meals and bedtime -Prandial NovoLog 2 units for every 10 g of carbohydrates -> 1 units per 5g CHO, TID AC, and 1:6PRN with snacks and supplements -> discontinued with restarting pump on 10/31 -High intensity sliding scale TID AC and at bedtime -> discontinued with restarting pump on 10/31 -Lantus 30 units daily -> 27 units [id number] on 10/30 -> discontinued with restarting pump on 10/31 -Metformin 500 mg daily with supper -Endocrine consulted on 10/30, appreciate help. Please refer to Endocrine note on 10/31 for more details -Omnipod pump to start at 10/31 @ 17:00. Will need to have bring in more pods and a Dexcom 7 tohave on hand -Pump settings: -Basal Rate: Midnight 0.9 units/hr-- Should run in Auto mode- check at bedtime to make sure running in auto Total Manual Basal: 21.6 units/day Insulin to carb ratio: 0000 10---> 5 Changed 10/31/2024 Sensitivity factor: 0000 40--> 35 Changed 10/31/2024 Target glucose: 110-120 Correct above: 120-130 Reverse correction: off Active insulin time: 2.5 hours -If pump failure: -Lantus 27 units, High sliding scale, 09/13 and 1 unit of insulin for 5g of carb - BG monitoring: TID AC, HS, 0200 and 5 am per pump policy - Hypoglycemia protocol - Carb counting protocol #Hyponatremia This was thought to be hypovolemic related but appears to be acute on chronic issue. 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 Previous urine sodium < 20, urine osm 715, and serum osmolality 290. -Sodium 126 on 10/30 (recently 129 on 10/23). Asymptomatic -Labs one 10/30 -Urine sodium: < 20 -Urine osmolality: 735 -Serum osmolality: 273 (mildly low) -Continue 2L/day fluid restriction at this time -Repeat BMP on 10/31 -> sodium 129 -Continue to monitor at this time. Presenting like SIADH presentation. If worsens, consider tightening fluid restriction. If symptomatic (confusion, convulsions), provide hypertonic saline 200-300 mlIVF over 3-4 hours -Plans to recheck BMP on 11/03 #Hypertension -PROFESSIONAL SERVICES CONSULTANT Lisinopril 30 mg daily #Hyperlipidemia -Continue PROFESSIONAL SERVICES CONSULTANT ezetimibe 10mg daily -Atorvastatin 40 mg every evening #Liver lesions Noted on initial CT chest. Patient and state that they were aware of these but I cannot find previous abdominal imaging. MRI obtained on 10/14 confirmed lesions raising question of metastatic disease. Patient may require biopsy for this. Patient follows in [facility] system. -Consider assessing with primary care provider in [facility] system #Obstructive sleep apnea -Use home CPAP #Chronic back pain -Acetaminophen 650 mg q4hrs prn -Diclofenac 2g QID daily -Lidocaine patch 4% 2 patch q12 hours -Oxycodone 5mg BID prn -Tizanidine 2-4 mg q8hrs prn Adjustment to disability: Clinical psychology to eval and treat if indicated FEN: Regular diet Bowel: Psyllium 5 capsule daily Bladder: Assess continence DVT Prophylaxis: Apixaban GI Prophylaxis: None Code: FULL Code Disposition: Home with home care and home with outpatient therapy ELOS: 10 days. Rehab prognosis: Good Follow up Appointments on Discharge: PCP PM&R Thoracic surgery follow-up in [address] chest Cardiology Neurology Pulmonary? Patient reviewed with attending physician, Dr. Monroe, who agrees with the assessment and plan. Reji Roca DO Resident Physician N PM&R PGY-2 [facility] 10/31/2024 Cosigned by Finn Monroe DO at 10/31/2024 3:45 PM CDT Associated attestation - Finn Monroe DO - 10/31/2024 3:45 PM CDT Physician Attestation I saw this patient with the resident and agree with the resident/fellow's findings and plan of careas documented in the note. Remy findings: Please see A&P for additional details of medical decision making. I have personally reviewed the following data over the past 24 hrs: N/A \ N/A / N/A 129 (L) 92 (L) 14.1 / 224 (H) 4.1 28 0.79 \ Finn Monroe DO Date of Service (when I saw the patient): 10/31/24 * Tova Levy PA-C - 10/31/2024 7:27 AM CDT Images from the original note were not included. 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 Neurology was consulted due to continued left-sided weakness in which differential considerations included acute ischemia, posttreatment change, or recurrence. Neurology diagnosed an acute ischemic stroke of right frontal lobe due to cardioembolism despite anticoagulation. Inpatient Diabetes Service consulted for potentially restarting ambulatory insulin pump and glycemic adjustments. Assessment/Plan: Assessment: JAVIER treated as Type 1 Diabetes Mellitus complicated by macrovascular disease and hyperglycemia. Fair control (A1c 7.5 % 10/26/24, Hgb: 12.6 10/23/24) CVA affecting left side, right handed Plan/Recommendations: - Lantus 27 units q 24 hrs last on 10/30/2024 at 18:00, discontinue due to pump placement at 1700 - Continue Novolog Meal Coverage: 1 units per 5 g CHO, TID AC and 1:6 PRN with snacks/supplements. Discontinue at 17:00 with pump placement Pt care order: Give pt mealtime insulin prior to meal. Cover carbs per his report of what he will eat. See PRN snack order if having a snack. - Novolog Correction Scale: 1:25>140 TID AC, >200 HS, 0200 (high resistance) Discontinue at 17:00 with pump placement -Continue PROFESSIONAL SERVICES CONSULTANT metformin 500 mg po daily, JAVIER OK to start Omnipod pump 5 today at 17:00---> needs to bring in more pods and a Dexcom 7 tohave on hand. Dexcom 7 has 9 days let Novolog via Omnipod 5 with Dexcom G7 in auto-mode Pump settings (Reviewed PDM) Checked settings on 10/31/2024 Basal Rate: Midnight 0.9 units/hr-- Should run in Auto mode- check at bedtime to make sure running in auto Total Manual Basal: 21.6 units/day Insulin to carb ratio: 0000 10---> 5 Changed 10/31/2024 Sensitivity factor: 0000 40--> 35 Changed 10/31/2024 Target glucose: 110-120 Correct above: 120-130 Reverse correction: off Active insulin time: 2.5 hours Pump Failure: Lantus 27 units, High sliding scale, 09/13 and 1 unit of insulin for 5g of carb - BG monitoring: TID AC, HS, 0200 and 5 am per pump policy - Hypoglycemia protocol - Carb counting protocol Discussion: Yesterday received about 38 units of Novolog+ 27 units of Lantus=65 units. He uses 50 units at home. BG this am at 7kt=516 and then crept up to 192 at 7:35 am. Discharge Planning: (tentative) Medications: TBD, home on pump Test Claims: none Education: Needs to be assessed closer to discharge. Outpatient Follow-up: Dr Mahoney, [facility] Endocrinology Please notify Inpatient Diabetes Service if changes are planned to steroids, nutrition, TPN/TF and anticipated procedures requiring prolonged NPO status. Interval History/Review of Systems : The last 24 hours progress and nursing notes reviewed. No new events overnight Showered today No n,v,d Creat=0.79 Planned Procedures/Surgeries: none Inpatient Glucose Control: Recent Labs Lab 10/31/24 0613 10/31/24 0559 10/31/24 0221 10/30/24 2205 10/30/24 1711 10/30/24 1130 GLC 159* 128* 125* 147* 168* 366* Medications Impacting Glycemia: Steroids: none D5W containing solutions/medications: none Other medications impacting glucose: none Nutrition: Orders Placed This Encounter Combination Diet Regular Diet; Thin Liquids (level 0) Orders Placed This Encounter Combination Diet Regular Diet; Thin Liquids (level 0) Supplements: none TF: none TPN: none Diabetes History: see full consult note for complete diabetes history PROFESSIONAL SERVICES CONSULTANT Medication Regimen: - Metformin 500mg daily - Novolog via Omnipod 5 with Dexcom G7 in auto-mode Pump settings (per chart review; no PDM at time of visit) Basal Rate: Midnight 0.9 units/hr Total Manual Basal: 21.6 units/day Insulin to carb ratio: 0000 10 Sensitivity factor: 0000 40 Target glucose: 110-120 Correct above: 120-130 Reverse correction: off Active insulin time: 2.5 hours Missing doses?: denies Historical Diabetes Medications: Metformin (started 2020), MDI, Omnipod insulin pump since 2020 Glucose monitoring device/frequency/trends: Dexcom G7; reports infrequent lows Hypoglycemia PROFESSIONAL SERVICES CONSULTANT: - Frequency: infrequent recently - Severity: no history of severe unconscious lows - Awareness: intact Outpatient Diabetes Provider: [facility] Endocrinology: Stephie Mahoney MD ([facility] 05/30/24) Formal Diabetes Education/Educator: yes - Federica Foster ([facility] 09/04/24) Physical Exam: BP 135/76 Pulse 80 Temp 97.9 ??F (36.6 ??C) (Oral) Resp 16 Ht 1.778 m (5' 10) Wt 81.6 kg(180 lb) SpO2 (!) 91% BMI 25.83 kg/m?? General: well appearing, in no acute distress. HEENT: sclera not injected Lungs: no SOB on RA Skin: warm and dry, no obvious lesions MSK: moving all extremities Lymp: no LE edema Neuro: Alert and oriented x3, tremor Psych: Cooperative, good eye contact, full/appropriate affect Data: Lab Results Component Value Date A1C 7.5 (H) 10/26/2024 A1C 6.7 (H) 04/18/2024 A1C 6.6 (H) 07/19/2023 A1C 6.8 (H) 10/13/2022 A1C 6.8 (H) 05/05/2022 A1C 5.1 06/20/2019 ROUTINE IP LABS (Last four results) BMP Recent Labs Lab 10/31/24 0613 10/31/24 0559 10/31/24 0221 10/30/24 2205 10/30/24 0715 10/30/24 0619 10/28/24 0826 10/28/24 0618 NA 129* -- -- -- -- 126* -- -- POTASSIUM 4.1 -- -- -- -- 5.2 -- 4.5 CHLORIDE 92* -- -- -- -- 88* -- -- LUIS 8.7* -- -- -- -- 8.4* -- -- CO2 28 -- -- -- -- 25 -- -- BUN 14.1 -- -- -- -- 11.7 -- -- CR 0.79 -- -- -- -- 0.68 -- -- GLC 159* 128* 125* 147* < > 337* < > -- < > = values in this interval not displayed. CBC Recent Labs Lab 10/30/24 0619 WBC 8.3 RBC 3.76* HGB 11.4* HCT 32.9* MCV 88 MCH 30.3 MCHC 34.7 RDW 11.9 PLT 429 INRNo lab results found in last 7 days. Inpatient Diabetes Service will continue to follow, please don't hesitate to contact the team with any questions or concerns. Tova Levy PA-C Inpatient Diabetes Service [phone] Available by [employer] Date of Service: 10/31/2024 Plan discussed with patient, bedside RN in person, pharmacist in person, and primary team via [employer] and in person To contact Inpatient Diabetes Service: 7 AM - 5 PM: Page the Immus[facility]T HAYDE following the patient that day (see filed or incomplete progress notes/consult notes under Endocrinology) OR if uncertain of provider assignment: page job code [phone] 5 PM - 7 AM: First call after hours is to primary service. For urgent after-hours questions, page job code for news operations manager fellow: [phone] I spent a total of 50 minutes on the date of the encounter doing prep/post-work, chart review, history and exam, documentation and further activities per the note including lab review, multidisciplinary communication, counseling the patient and/or coordinating care regarding acute hyper/hypoglycemic management, as well as discharge management and planning/communication. * Ese Gibsonney, PT - 10/30/2024 4:33 PM CDT 10/30/24 0800 Appointment Info Signing Clinician's Name / Credentials (PT) Kristi Gibson DPRoberto Living Environment People in Home spouse Current Living Arrangements house Home Accessibility stairs to enter home;stairs within home Number of Stairs, Main Entrance 2 Stair Railings, Main Entrance none Number of Stairs, Within Home, Primary greater than 10 stairs Stair Railings, Within Home, Primary railing on right side (ascending) Transportation Anticipated family or friend will provide () Living Environment Comments Pt lives in [place] in 2 story home with . Pt reports 2 EL without rail, flight of stairs up to bedroom and master bathroom with R ascending rail. Normal, flat bed. Walk-in shower with built-in shower chair, no grab bars by toilet or in shower. Laundry on main floor. 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 Son and daughter live locally ([place] and [facility]) and both work. 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 Has 2 dogs that he walks daily, enjoys doing yardwork. Prior to hospitalization, pt was IND in all mobility no AD and IND in all I/ADLs. Pt reports maybe having SPC at home, but not sure. Post-Acute Assessment Only Post-Acute Functional Assessment See below Previous Level of Function/Home Environm Bathing, Previous Functional Level independent Grooming, Previous Functional Level independent Dressing, Previous Functional Level independent Eating/Feeding, Previous Functional Level independent Toileting, Previous Functional Level independent BADLs, Previous Functional Level independent IADLs, Previous Functional Level independent Bed Mobility, Previous Functional Level independent Transfers, Previous Functional Level independent Household Ambulation, Previous Functional Level independent Stairs, Previous Functional Level independent Community Ambulation, Previous Functional Level independent General Information Onset of Illness/Injury or Date of Surgery 10/12/24 Referring Physician Finn Monroe, DO Patient/Family Therapy Goals Statement (PT) lose the walker Pertinent History of Current Problem (include personal factors and/or comorbidities that impact thePOC) Per H&P: Santy Glez is a 63 year old male with history of type I diabetes, seizures, 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 He presented to the ED on 10/12/2024 after a fall with L sided weakness. Of note, pt recently had influenza. Emergency department evaluation showed hypoxia with needof oxygen at 2 L/min. Chest CT showed [...] was removed on 10/24. Thoracic surgery was consultedand at this time no further intervention planned for pleural effusion and residual atelectasis/trapped lung on CT imaging. His hospital course has been complicated by recrudescence of LUE/LLE weakness, acute hypoxic respiratory failure, R pleural effusion, afib with RVR with rates into 140's, hypotension, needing amiodarone infusion. Patient spontaneously converted to sinus rhythm. Neurology was consulted on 10/27 due to continued L sided weakness and previous MRI result that recommended repeat imaging due to showing Interval development of 1 cm linear focus of restricted diffusion posteriorto the right frontal resection cavity. Differential considerations include acute ischemia, posttreatment change, or recurrence. Neurology diagnosed an acute ischemic stroke of right frontal lobe possibly due to cardioembolism despite anticoagulation; some concern for hypercoagulability of malignancy given liver lesions. Patient reportedly had a fall event on day of discharge from [facility]. Patient reportedly had his legs buckled when he was throwing away tissue paper and bedroom. Patient denied having head trauma, loss of consciousness, shortness of breath, or fractures. Patient was deemed stable and thus possible discharge was proceeded with no further testing. Existing Precautions/Restrictions fall Cognition Affect/Mental Status (Cognition) WFL Orientation Status (Cognition) oriented x 4 Follows Commands (Cognition) WFL Safety Deficit (Cognition) minimal deficit;impulsivity Cognitive Status Comments Mostly flat affect, impulsive at times. Pain Assessment Patient Currently in Pain No Integumentary/Edema Integumentary/Edema no deficits were identifed Posture Posture Forward head position Range of Motion (ROM) Range of Motion ROM is WFL Strength (Manual Muscle Testing) Strength (Manual Muscle Testing) Deficits observed during functional mobility Strength Comments MMT WFL, however LLE weak in functional gait with instances of LOB/instability temi when turning L with and without AD Bed Mobility Comment, (Bed Mobility) See GG Transfers Comment, (Transfers) See GG Gait/Stairs (Locomotion) Comment, (Gait/Stairs) See GG Balance Balance other (describe) Balance Comments good static sitting, fair+ dynamic sitting, fair- static and dynamic standing Sensory Examination Sensory Perception other (describe) Sensory Perception Comments light touch WFL bilaterally, proprioception WFL bilaterally, sharp/dullWFL bilaterally, vibration intact L GT, vibration impaired RIGHT GT but intact at medial malleolus Coordination Coordination Comments moderate incoordination/ataxic with LLE during gait and transfers. Muscle Tone Muscle Tone no deficits were identified Clinical Impression Criteria for Skilled Therapeutic Intervention Yes, treatment indicated PT Diagnosis (PT) impaired force production Influenced by the following impairments astrocytoma s/p resection (1998?), acute hypoxic respiratory failure, R loculated pleural effusion, PNA, afib, aortic valve regurgitation s/p bioprosthetic AVR(2019), chronic anticoagulation, basal cell carcinoma, chest tube placed 10/16-10/24 Functional limitations due to impairments bed mobility, transfers, gait, stairs Clinical Presentation (PT Evaluation Complexity) stable Clinical Presentation Rationale clinical judgment Clinical Decision Making (Complexity) moderate complexity Planned Therapy Interventions (PT) balance training;bed mobility training;gait training;home exercise program;neuromuscular re-education;patient/family education;stair training;strengthening;transfertraining;home program guidelines;risk factor education;progressive activity/exercise;E-stim;ROM (range of motion) Risk & Benefits of therapy have been explained evaluation/treatment results reviewed;care plan/treatment goals reviewed;risks/benefits reviewed;current/potential barriers reviewed;participants voiced agreement with care plan;participants included;patient Clinical Impression Comments 63 y/o male with hx of brain astrocytoma s/p resection (1998), who presented to ED after a fall. Pt was found to have acute hypoxic failure requiring 2-5 LPM via NC during hospitalization, PNA with R loculated pleural effusion, and acute ischemic stroke of R frontal lobe. Pt presents to ARU with diminished coordination, balance, and endurance limiting ability to perform bed mobility, transfers, ambulation, and stairs. Pt will benefit from ~10 days of skilled therapyin ARU setting with goals to return to [place] PLOF and reduce risk of falls. PT Total Evaluation Time PT Eval, Low Complexity Minutes (46212) 35 Physical Therapy Goals PT Frequency 6x/week PT Predicted Duration/Target Date for Goal Attainment 11/09/24 PT Goals Bed Mobility;Transfers;Gait;Stairs;PT Goal 1;PT Goal 2 PT: Bed Mobility Independent;Rolling;Bridging;Supine to/from sit PT: Transfers Modified independent;Sit to/from stand;Bed to/from chair;Assistive device (FWW vs cane) PT: Gait Modified independent;Greater than 200 feet;Assistive device (FWW vs cane) PT: Stairs Greater than 10 stairs;Modified independent;Rail on right PT: Goal 1 car transfer supv PT: Goal 2 floor transfer supv Therapeutic Activity Therapeutic Activities: dynamic activities to improve functional performance Minutes (43862) 10 Treatment Detail/Skilled Intervention Pt ambulates ~120 ft with FWW and CGA-Art and w/c follow, requiring additional assist when turning d/t LLE functional weakness/incoordination. Discussed PT POC and goals in ARU setting, pt left with all needs in reach and chair alarm on. PT Discharge Planning PT Plan assess sensation, tone, coord, finish GGs, gait training and BLE strengthening Physical Therapy Time and Intention Timed Code Treatment Minutes 10 Total Session Time (sum of timed and untimed services) 45 Post Acute Settings Only What unit is patient on? Acute Rehab PT - Acute Rehab Center Time Individual Time (minutes) - PT 45 Group Time (minutes) - PT 0 Concurrent Time (minutes) - PT 0 Co-Treatment Time (minutes) - PT 0 ARC Total Session Time (minutes) - PT 45 ARC Daily Total Session Time PT ARC Daily Total Session Time 45 ARC Daily Rehab Total Minutes 45 [id number] Transfer: standard height (18 inches) Complete independence for mkngl-ntl-gd-chair transfer no Describe performance SPT with FWW with Art Roll Left and Right: flat no rail Assistance Needed Verbal cues Physical Assistance Level 25%-49% Comment Pt unable to roll completely to either side without Art. Roll Left to Right CARE Score 3 Sit to Lying: flat no rail Assistance Needed Supervision Physical Assistance Level No physical assistance Comment SBA Sit to Lying CARE Score 4 Lying to Sitting on Side of Bed: flat no rail Assistance Needed Supervision Physical Assistance Level No physical assistance Comment Sup>sit with pt engaging core to sit up. Lying to Sitting CARE Score 4 Sit to Stand: standard height (18 inches) Assistance Needed Verbal cues;Adaptive equipment Physical Assistance Level Contact guard assist Comment Cues for proper foot placement (pt relies almost entirely on RLE) and safety to FWW. Sitting to Standing CARE Score 4 Walk 10 Feet Physical Assistance Level 25%-49% Comment Pt ambulates x 60 ft with 2 turns with CGA, no AD over hard surface. Pt has one anterior LOB when turning to L requiring modA to correct. Proceeded to grade 150 ft GG with FWW. Walk 10 Ft. CARE Score 3 Walk 50 Feet with Two Turns Physical Assistance Level 25%-49% Comment Pt ambulates x 60 ft with 2 turns with CGA, no AD over hard surface. Pt has one anterior LOB when turning to L requiring modA to correct. Proceeded to grade 150 ft GG with FWW. Walk 50 Ft. CARE Score 3 Walk 150 Feet Assistance Needed Adaptive equipment Physical Assistance Level Less than 25% Comment Pt ambulates x 200 ft with FWW with multiple turns over hard surface, CGA for straight lineambulation, Art for turns d/t LLE functional weakness/incoordination Walk 150 Ft. CARE Score 3 Wheel 50 Feet with Two Turns Reason if not Attempted Activity not applicable Wheel 50 Feet with Two Turns CARE Score 9 Wheel 150 Feet Reason if not Attempted Activity not applicable Wheel 150 Feet CARE Score 9 1 Step (Curb): 6 inches no rail Assistance Needed Verbal cues Physical Assistance Level 25%-49% Comment Ascends/descends 6 curb step with FWW and Art, verbal cues for proximity 1 Step CARE Score 3 4 Steps: 6 inches Assistance Needed Adaptive equipment;Verbal cues Physical Assistance Level 25%-49% Comment Ascends/descends 12 steps with R ascending HR with Art for balance, VCs for keeping entirefoot on step before stepping up. Pt alternates between step- to and reciprocal pattern 4 Steps CARE Score 3 12 Steps: 6 inches Assistance Needed Adaptive equipment;Verbal cues Physical Assistance Level 25%-49% Comment Ascends/descends 12 steps with R ascending HR with Art for balance, VCs for keeping entirefoot on step before stepping up. Pt alternates between step- to and reciprocal pattern 12 Steps CARE Score 3 Picking Up Object: Ability to bend/stoop from standing (consider using a optical technician) Reason if not Attempted Safety concerns Criminalist Technician CARE Score 88 * Kristi Gibson, PT - 10/30/2024 4:21 PM CDT Timed Up and Go (TUG): TUG is a test of basic mobility skills. It is used to screen individuals prone to falls. Gait assistive device used: no AD Patient score 26.08 seconds >=13.5 seconds indicate at risk for falls in older adults according to Nino- Kyler et al 2000. >=30 seconds - indicates dependency in most ADL and mobility skills according to Posiadlo & Sheehan 1991 >11.5 seconds indicate at risk for falls in adults with Parkinson's Disease Minimal Detectable Change for patients with Alzheimer???s = 4.09 sec Minimal Detectable Change for patients with Parkinson???s Disease = 3.5 sec according to Jurgen & Beny Clemens 2011 Normative Data from [facility] [place], Choloo D, Alfonso M, Maribel E, Lacycijohn. 2017 Age Average Time (in seconds) 20-39 5.9-7.4 40-59 6.3-7.8 60-69 7.1-9.0 70-79 8.2-10.2 80-99 10.0-12.7 Assessment (rationale for performing, application to patient s function & care plan): (Minutes billed as physical performance test) * Kristi Gibson, PT - 10/30/2024 4:17 PM CDT 10/30/24 1600 Signing Clinician's Name / Credentials Signing clinician's name / credentials Kristi Gibson DPRoberto Functional Gait Assessment (Irena Blevins, Dayna Lake, et al. (2004)) 1. GAIT LEVEL SURFACE 1 2. CHANGE IN GAIT SPEED 1 3. GAIT WITH HORIZONTAL HEAD TURNS 0 4. GAIT WITH VERTICAL HEAD TURNS 1 5. GAIT AND PIVOT TURN 0 6. STEP OVER OBSTACLE 0 7. GAIT WITH NARROW BASE OF SUPPORT 0 8. GAIT WITH EYES CLOSED 0 9. AMBULATING BACKWARDS 0 10. STEPS 1 Total Functional Gait Assessment Score TOTAL SCORE: (MAXIMUM SCORE 30) 4 Functional Gait Assessment (FGA): The FGA assesses postural stability during various walking tasks. Gait assistive device used: None Scores of <22 /30 have been correlated with predicting falls in community- dwelling older adults according to Felicity & Mark 2010. Scores of <18 /30 have been correlated with increased risk for falls in patients with ParkinsonsDisease according to Rich Valdez Zhou et al 2014. Minimal Detectable Change for patients with acute/chronic stroke = 4.2 according to Thidavid & Ritschel 2009 Minimal Detectable Change for patients with vestibular disorder = 8 according to Felicity & Mark 2010 Assessment (rationale for performing, application to patient s function & care plan): Pt requiring CGA throughout, possible basement effect. (Minutes billed as physical performance test): * Ivonne Vences OTR - 10/30/2024 12:28 PM CDT Occupational Therapy Evaluation: 10/30/24 1015 Appointment Info Signing Clinician's Name / Credentials (OT) PITER Sood, OTR/L Rehab Comments (OT) -17 increased blood glucose levels Living Environment People in Home spouse Current Living Arrangements house Home Accessibility stairs to enter home;stairs within home Number of Stairs, Main Entrance 2 Stair Railings, Main Entrance none Number of Stairs, Within Home, Primary greater than 10 stairs Stair Railings, Within Home, Primary railing on right side (ascending) Transportation Anticipated family or friend will provide;car, drives self Living Environment Comments Pt reports living with his spouse in a house. Pt reports has flight of stairs in home to get to master bathroom and bedroom. 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 Master bathroom with walk in shower and shower chair. Self-Care Usual Activity Tolerance good Current Activity Tolerance fair Regular Exercise Yes Activity/Exercise Type walking;strength training (yardwork) Exercise Amount/Frequency 3-5 times/wk Equipment Currently Used at Home (pt reports has a shower chair) Fall history within last six months yes Number of times patient has fallen within last six months 2 (One leading to POC, one in hospital where he bent down to pick out hand a towel and was unable to rise back up (no injuries).) Activity/Exercise/Self-Care Comment Pt reports ind with ADLs at baseline, ind with mobility as well. 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 Post-Acute Assessment Only Post-Acute Functional Assessment See below Previous Level of Function/Home Environm Bathing, Previous Functional Level independent Grooming, Previous Functional Level independent Dressing, Previous Functional Level independent Eating/Feeding, Previous Functional Level independent Toileting, Previous Functional Level independent BADLs, Previous Functional Level independent IADLs, Previous Functional Level independent Bed Mobility, Previous Functional Level independent Transfers, Previous Functional Level independent Household Ambulation, Previous Functional Level independent Stairs, Previous Functional Level independent Community Ambulation, Previous Functional Level independent General Information Onset of Illness/Injury or Date of Surgery 10/29/24 Referring Physician Zee Espana PA-C Patient/Family Therapy Goal Statement (OT) Increase hand eye coordination/FMC LUE, and throw a ball again Additional Occupational Profile Info/Pertinent History of Current Problem Santy Glez is a 63 year old right-handed 80 ARU dominant male with a past medical history of type I diabetes, seizures, 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 Patient recently had influenza. CT chest showed right lower lung pneumonia, right pleural effusion and multiple liver lesions. Patient was treated with antibiotics. Patient under went thoracentesis. Chest tube placed on 10/16 for loculated effusion. S/p tPA BID 10/20-10/23 to improve drainage and tube was removed on 10/24. No further management per thoracic surgery. Hospital course further complicated by atrial fibrillation with RVR which patient required amiodarone infusion. Spontaneously reverted back to sinus rhythm. Neurology was consulted due to continued left- sided weakness in which differential considerations included acute ischemia, posttreatment change, or recurrence.Neurology diagnosed an acute ischemic stroke of right frontal lobe due to cardioembolism despite anticoagulation. Existing Precautions/Restrictions fall Limitations/Impairments (L sided weakness/tremors) Left Upper Extremity (Weight-bearing Status) full weight-bearing (FWB);weight- bearing as tolerated (WBAT) Right Upper Extremity (Weight-bearing Status) full weight-bearing (FWB) Left Lower Extremity (Weight-bearing Status) full weight-bearing (FWB);weight- bearing as tolerated (WBAT) Right Lower Extremity (Weight-bearing Status) full weight-bearing (FWB) General Observations and Info 63 y/o male with hx of brain astrocytoma s/p resection (1998), who presented to ED after a fall. Pt was found to have acute hypoxic failure requiring 2-5 LPM via NC during hospitalization, PNA with R loculated PE, and acute ischemic stroke of R frontal lobe. Pt presents to ARU with diminished L UE coordination, balance, and endurance limiting ability to perform ADL/IADL tasks. Pt will benefit from ~10 days of skilled therapy in ARU setting with goals to return homeat Mod I level and reduce risk of falls. Cognitive Status Examination Orientation Status orientation to person, place and time Visual Perception Visual Impairment/Limitations corrective lenses full-time Sensory Sensory Quick Adds sensation intact Pain Assessment Patient Currently in Pain No Posture Posture forward head position;protracted shoulders Range of Motion Comprehensive Comment, General Range of Motion R WFL, L shoulder approx 75% ROM Strength Comprehensive (MMT) Comment, General Manual Muscle Testing (MMT) Assessment RUE approx 4+/5, LUE approx 4-/5 Coordination Upper Extremity Coordination Left UE impaired Coordination Comments Pt reports essential tremor past 3 years. Bed Mobility Bed Mobility sit-supine Comment (Bed Mobility) SBA Transfers Transfers toilet transfer Transfer Comments Anticipate pt would require CGA-Min A toilet transfer Clinical Impression Criteria for Skilled Therapeutic Interventions Met (OT) Yes, treatment indicated OT Diagnosis Decreased ind with ADL/IADL OT Problem List-Impairments impacting ADL problems related to;activity tolerance impaired;balance;strength;mobility;range of motion (ROM) Assessment of Occupational Performance 3-5 Performance Deficits Identified Performance Deficits Bathing, dressing, g/h, toileting, decreased activity tolerance Planned Therapy Interventions (OT) ADL retraining;IADL retraining;fine motor coordination training;neuromuscular re- education;ROM;strengthening;stretching;transfer training;home program guidelines;progressive activity/exercise;risk factor education Clinical Decision Making Complexity (OT) problem focused assessment/low complexity Risk & Benefits of therapy have been explained evaluation/treatment results reviewed;care plan/treatment goals reviewed;risks/benefits reviewed;current/potential barriers reviewed;participants voiced agreement with care plan;participants included;patient Clinical Impression Comments Pt would benefit from skilled OT services while in ARU setting to increase ind with ADL/IADL prior to DC. OT Total Evaluation Time OT Eval, Low Complexity Minutes (84703) 10 OT Goals Therapy Frequency (OT) 6 times/week OT Predicted Duration/Target Date for Goal Attainment 11/09/24 OT Goals Hygiene/Grooming;Upper Body Dressing;Lower Body Dressing;Upper Body Bathing;Lower Body Bathing;Toilet Transfer/Toileting;Meal Preparation;Home Management;OT Goal 1;OT Goal 2 OT: Hygiene/Grooming modified independent OT: Upper Body Dressing Modified independent OT: Lower Body Dressing Modified independent OT: Upper Body Bathing Modified independent OT: Lower Body Bathing Modified independent OT: Toilet Transfer/Toileting Modified independent OT: Meal Preparation Modified independent OT: Home Management Modified independent OT: Goal 1 Pt will demo ability to complete fine motor tasks with BUE with increased speed and without dropping items prior to DC. OT: Goal 2 Pt will demo ind with completion of UE HEP prior to DC for increased UE strengthening. OT Discharge Planning OT Plan Box and blocks, toileting, LB dressing Total Session Time Timed Code Treatment Minutes 33 Total Session Time (sum of timed and untimed services) 43 Post Acute Settings Only What unit is patient on? Acute Rehab OT - Acute Rehab Center Time Individual Time (minutes) - OT 43 Group Time (minutes) - OT 0 Concurrent Time (minutes) - OT 0 Co-Treatment Time (minutes) - OT 0 ARC Total Session Time (minutes) - OT 43 ARC Daily Total Session Time OT ARC Daily Total Session Time 43 ARC Daily Rehab Total Minutes 88 Upper Body Dressing Describe performance OT: Min A pulling shirt down in back while pt seated. Clothing Utilized Shirt Lower Body Dressing putting on/taking off footwear Describe performance OT: SBA while seated, multiple attempts to tie shoes (difficulties with decreased LUE FMC). * Kristi Gibson, PT - 10/30/2024 10:26 AM CDT Food Stylist Post-Acute Rehab PT: Discharge Plan: home with assist, HHPT Precautions: falls, monitor BG (pt tracks on phone), L inattention Current Status: Bed Mobility: Art with HOB flat no rails Transfer: STS to FWW CGA, SPT with CGA-Art Gait: 200' with FWW and Art with turns Stairs: Art with R rail for balance, verbal cues for safety Balance: good static sitting, fair+ dynamic sitting, fair- static and dynamic standing Outcome Measures: TU.08 sec no device on 10/30 FGA: 12/17 no device on 10/30 Assessment: 63 y/o male with hx of brain astrocytoma s/p resection (1998), who presented to ED after a fall. Pt was found to have acute hypoxic failure requiring 2-5 LPM via NC during hospitalization, PNA with R loculated PE, and acute ischemic stroke of R frontal lobe. Pt presents to ARU with diminished coordination, balance, and endurance limiting ability to perform bed mobility, transfers, ambulation, and stairs. Pt will benefit from ~10 days of skilled therapy in ARU setting with goals to return to [place] PLOF and reduce risk of falls. Other Barriers to Discharge (DME, Family Training, etc): Likely will need family training Pt owns: SPC (need to confirm), no other DME reported * Reji Roca DO - 10/30/2024 8:39 AM CDT Images from the original note were not included. [facility] Acute Rehabilitation Unit Daily progress note INTERVAL HISTORY Nursing notes reviewed. Vitals reviewed. BP 150/99 this morning. Nursing notes reviewed. Labs drawnthis morning. BG this morning 337. Plan to consult endocrine regarding diabetes management. Na+ 126today. Urine osm 735, urine sodium < 20, serum osmolality 273. Patient was seen sitting in chair this morning. Patient reports that he slept poorly last night. Patient states that his room was hot. Patient frustrated about diabetes management currently in which patient is agreeable with having an endocrine consult. Patient states that patient is being seen by.Dr. Mahoney as outpatient. Discussed about patient's labs with patient. Patient has history of SIADH. Patient agreeable to getting additional lab work-up to assess hyponatremia. Repeat BMP on 10/31 morning. No other questions or concerns at this time. LBM 10/30. Functionally: pending evaluations MEDICATIONS Scheduled meds Current Facility-Administered Medications Medication Dose Route Frequency Provider Last Rate Last Admin amiodarone (PACERONE) tablet 200 mg 200 mg Oral Daily Zee Espana PA-C 200 mg at 10/30/24823 apixaban ANTICOAGULANT (ELIQUIS) tablet 5 mg 5 mg Oral BID Zee Espana PA-C 5 mg at 10/30/24822 atorvastatin (LIPITOR) tablet 40 mg 40 mg Oral QPM Zee Espana PA-C 40 mg at 10/29/242027 cholecalciferol (VITAMIN D3) capsule 125 mcg 125 mcg Oral Daily Zee Espana PA-C 125 mcg at 10/30/24823 diclofenac (VOLTAREN) 1 % topical gel 2 g 2 g Topical 4x Daily Zee Espana PA-C 2 g at 10/30/24 0824 ezetimibe (ZETIA) tablet 10 mg 10 mg Oral QPM Zee Espana PA-C 10 mg at 10/29/248 guaiFENesin (MUCINEX) 12 hr tablet 600 mg 600 mg Oral BID Zee Espana PA-C 600 mg at 10/30/24 0824 insulin aspart (NovoLOG) injection (RAPID ACTING) 1-10 Units Subcutaneous TID AC Zee Espana PA-C 8 Units at 10/30/24 0825 insulin aspart (NovoLOG) injection (RAPID ACTING) 1-7 Units Subcutaneous At Bedtime Zee Espana PA-C 6 Units at 10/29/24 2153 insulin aspart (NovoLOG) injection (RAPID ACTING) Subcutaneous TID w/meals Reji Roca DO 6 Units at10/30/24 0829 insulin glargine (LANTUS PEN) injection 30 Units 30 Units Subcutaneous At Bedtime Beryl Espana PA-C 30 Units at 10/29/24 2154 lamoTRIgine (LaMICtal) tablet 300 mg 300 mg Oral BID Zee Espana PA-C 300 mg at 10/30/24 0823 Lidocaine (LIDOCARE) 4 % Patch 2 patch 2 patch Transdermal Q24H Zee Espana PA-C 2 patch at 10/30/24 0825 lisinopril (ZESTRIL) tablet 30 mg 30 mg Oral Daily Zee Espana PA-C 30 mg at 10/30/24 0823 magnesium oxide (MAG-OX) tablet 400 mg 400 mg Oral Daily Zee Espana PA-C 400 mg at 10/30/24 0824 metFORMIN (GLUCOPHAGE) tablet 500 mg 500 mg Oral Daily with supper Zee Espana PA-C 500 mgat 10/29/24 1803 metoprolol succinate ER (TOPROL XL) 24 hr tablet 50 mg 50 mg Oral BID Zee Espana PA-C 50 mg at 10/30/24 0824 miconazole (MICATIN) 2 % powder Topical BID Zee Espana PA-C Given at 10/30/24 0824 multivitamin w/minerals (THERA-VIT-M) tablet 1 tablet 1 tablet Oral Daily Zee Espana PA-C1 tablet at 10/30/24 0824 psyllium (METAMUCIL/KONSYL) capsule 5 capsule 5 capsule Oral Daily Zee Espana PA-C 5 capsule at 10/30/24 0823 PRN meds: Current Facility-Administered Medications Medication Dose Route Frequency Provider Last Rate Last Admin acetaminophen (TYLENOL) tablet 650 mg 650 mg Oral Q4H PRN Zee Esapna PA-C 650 mg at 10/29/24 1558 benzonatate (TESSALON) capsule 100 mg 100 mg Oral TID PRN Zee Espana PA-C glucose gel 15-30 g 15-30 g Oral Q15 Min PRN Zee Espana PA-C Or dextrose 50 % injection 25-50 mL 25-50 mL Intravenous Q15 Min PRN Zee Espana PA-C Or glucagon injection 1 mg 1 mg Subcutaneous Q15 Min PRN Zee Espana PA-C insulin aspart (NovoLOG) injection (RAPID ACTING) Subcutaneous With Snacks or Supplements Zee Espana PA-C melatonin tablet 3 mg 3 mg Oral At Bedtime PRN Zee Espana PA-C naloxone (NARCAN) injection 0.2 mg 0.2 mg Intravenous Q2 Min PRN Finn Monroe DO Or naloxone (NARCAN) injection 0.4 mg 0.4 mg Intravenous Q2 Min PRN Finn Monroe DO Or naloxone (NARCAN) injection 0.2 mg 0.2 mg Intramuscular Q2 Min PRN Finn Monroe DO Or naloxone (NARCAN) injection 0.4 mg 0.4 mg Intramuscular Q2 Min PRN Finn Monroe, DO oxyCODONE (ROXICODONE) tablet 5 mg 5 mg Oral BID PRN Zee Espana PA-C 5 mg at 10/30/24 0251 Patient is already receiving anticoagulation with heparin, enoxaparin (LOVENOX), warfarin (COUMADIN) or other anticoagulant medication Does not apply Continuous PRN Zee Espana PA-C senna-docusate (SENOKOT-S/PERICOLACE) 8.6-50 MG per tablet 1 tablet 1 tablet Oral BID PRN Zee Espana PA-C tiZANidine (ZANAFLEX) tablet 2-4 mg 2-4 mg Oral Q8H PRN Zee Espana PA-C PHYSICAL EXAM BP (!) 150/99 (BP Location: Right arm) Pulse 83 Temp 97.9 ??F (36.6 ??C) (Oral) Resp 16 Ht 1.778 m (5' 10) Wt 81.6 kg (180 lb) SpO2 94% BMI 25.83 kg/m?? General: Sitting in chair, no acute distress HEENT: Previous head surgery scar appreciated on right side of head. Anisocoria appreciated on lefteye Pulmonary: Breathing comfortably on room air, clear to auscultation bilaterally Cardiovascular: Regular rate and rhythm, no murmurs rubs or gallops Abdominal: Non-tender, non-distended, bowel sounds present in all four quadrants Extremities: warm, well perfused, no edema in bilateral lower extremities, no tenderness in calves.Decreased range of motion with left upper extremity MSK/neuro: alert and oriented x3. Essential tremors appreciated with bilateral upper extremity L > R Gait: ambulated in FWW with therapy LABS Recent Results (from the past 24 hours) Glucose by meter Collection Time: 10/29/24 1:27 PM Result Value Ref Range GLUCOSE BY METER POCT 105 (H) 70 - 99 mg/dL Glucose by meter Collection Time: 10/29/24 4:41 PM Result Value Ref Range GLUCOSE BY METER POCT 102 (H) 70 - 99 mg/dL Glucose by meter Collection Time: 10/29/24 9:51 PM Result Value Ref Range GLUCOSE BY METER POCT 326 (H) 70 - 99 mg/dL Glucose by meter Collection Time: 10/30/24 2:27 AM Result Value Ref Range GLUCOSE BY METER POCT 289 (H) 70 - 99 mg/dL Glucose by meter Collection Time: 10/30/24 6:12 AM Result Value Ref Range GLUCOSE BY METER POCT 337 (H) 70 - 99 mg/dL Basic metabolic panel Collection Time: 10/30/24 6:19 AM Result Value Ref Range Sodium 126 (L) 135 - 145 mmol/L Potassium 5.2 3.4 - 5.3 mmol/L Chloride 88 (L) 98 - 107 mmol/L Carbon Dioxide (CO2) 25 22 - 29 mmol/L Anion Gap 13 7 - 15 mmol/L Urea Nitrogen 11.7 8.0 - 23.0 mg/dL Creatinine 0.68 0.67 - 1.17 mg/dL GFR Estimate >90 >60 mL/min/1.73m2 Calcium 8.4 (L) 8.8 - 10.4 mg/dL Glucose 337 (H) 70 - 99 mg/dL CBC with platelets Collection Time: 10/30/24 6:19 AM Result Value Ref Range WBC Count 8.3 4.0 - 11.0 10e3/uL RBC Count 3.76 (L) 4.40 - 5.90 10e6/uL Hemoglobin 11.4 (L) 13.3 - 17.7 g/dL Hematocrit 32.9 (L) 40.0 - 53.0 % MCV 88 78 - 100 fL MCH 30.3 26.5 - 33.0 pg MCHC 34.7 31.5 - 36.5 g/dL RDW 11.9 10.0 - 15.0 % Platelet Count 429 150 - 450 10e3/uL Magnesium Collection Time: 10/30/24 6:19 AM Result Value Ref Range Magnesium 1.9 1.7 - 2.3 mg/dL Glucose by meter Collection Time: 10/30/24 7:15 AM Result Value Ref Range GLUCOSE BY METER POCT 360 (H) 70 - 99 mg/dL Glucose by meter Collection Time: 10/30/24 7:57 AM Result Value Ref Range GLUCOSE BY METER POCT 337 (H) 70 - 99 mg/dL ASSESSMENT AND PLAN Santy Glez is a 63 year old right-handed 82 ARU dominant male with a past medical history oftype I diabetes, seizures, 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 Patient recently had influenza. CT chest showed right lower lung pneumonia, right pleural effusion and multiple liver lesions. Patient was treated with antibiotics. Patient underwent thoracentesis. Chest tube placed on 10/16 for loculated effusion. S/p t PA BID 10/20-10/23 to improve drainage and tube was removed on 10/24. No further management per thoracic surgery. Hospital course further complicated by atrial fibrillation with RVR which patient required amiodarone infusion. Spontaneously reverted back to sinus rhythm. Neurology was consulted due to continued left- sided weakness in which differential considerations included acute ischemia, posttreatment change, or recurrence. Neurology diagnosed an acute ischemic stroke of right frontal lobe due to cardioembolism despite anticoagulation. Admission to acute inpatient rehab 10/29/24. 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 Impairment of ADL's: Impairment in strength, endurance, and ROM resulting in functional limitationsin patient's ability to perform ADLs Impairment of mobility: Impairment in strength, endurance, and ROM resulting in functional limitations in patient's ability to perform functional mobility Medical Conditions #Acute hypoxic respiratory failure, resolved #Suspect postviral syndrome bacterial community-acquired pneumonia and right lower lung, resolved #Right parapneumonic effusion, resolved #Acute metabolic encephalopathy, likely related to above with falls, resolved #Cough, improving Patient arrived to ED on 10/12 presenting with fall, left-sided weakness and hypoxia. Of note, patient recently had influenza. CT chest showed right lower lung pneumonia, right pleural effusion and multiple liver lesions. Chest x-ray on 10/14 showed increasing right pleural effusion. Pulmonary was consulted. Patient was initially treated with Rocephin and Zithromax. This was changed to Zosyn on 10/14. Pulmonary consulted. Patient initially required 5 L of oxygen. Patient underwent thoracentesis. Chest tube placed on 10/16 for loculated effusion. S/p tPA BID 10/20-10/[address] chest on 10/23 showed improvement in pleural effusion with persistent right sided atelectasis, Chest tube wasremoved on 10/24. Pleural fluid cultures negative. Total course of antibiotics was 14 days, stop dateof Zosyn was on 10/28. Thoracic surgery consulted for residual pleural effusion and atelectasis following chest tube drainage. No recommendations for further intervention at this time. -Continue to assess respiratory status while on room air -Follow-up with thoracic surgery in [address] chest scan -For cough: Guaifenesin 600 mg bid, benzonatate 100 mg TID prn #History of right frontal lobe astrocytoma with resection, 1998 #Seizure disorder #Recrudescence of left upper and lower extremity weakness related to acute illness #Possible right ischemic stroke of frontal lobe Patient has chronic left arm and left leg weakness with astrocytoma that improved after treatment. Patient reportedly has recurrence of this weakness when patient is ill. Neurology was consulted on 10/27 due to continued L sided weakness and previous MRI result that recommended repeat imaging due toshowing Interval development of 1 cm linear focus of restricted diffusion posterior to the right frontal resection cavity. Differential considerations include acute ischemia, posttreatment change, orrecurrence. Neurology diagnosed an acute ischemic stroke of right frontal lobe possibly due to cardioembolism despite anticoagulation; some concern for hypercoagulability of malignancy given liver lesions. 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 Patient was able to convert to sinus rhythm on 10/15. Patient transitioned to oral amiodarone on 10/16 and will continue for 1 month. There is noted that patient intermittently was back in a trial fibrillation with borderline rate control starting on 10/17. Patient was transitioned from carvedilol 12.5 mg twice daily to Toprol-XL 50mg bid with good effect and conversion back to normal sinus rhythm -Oral amiodarone 200 mg x1 month (10/16/24-11/13/24) -Toprol-XL 50mg bid -Continue PROFESSIONAL SERVICES CONSULTANT apixaban 5mg bid -Ziopatch after rehab to measure atrial fibrillation burden vs loop recorder #Insulin-dependent diabetes, Type I #Hyperglycemia, improved Patient historically has been on insulin pump as well as metformin. Patient normally manages insulin pump but has not been eating well or feeling well so this was stopped during hospital stay. [id number] on 10/26/24. -Glucose last 24 hours: 109-366 -Hypoglycemia protocol -BG checks QID before meals and bedtime -Prandial NovoLog 2 units for every 10 g of carbohydrates -High intensity sliding scale TID AC and at bedtime -Lantus 30 units daily -Metformin 500 mg daily with supper -Endocrine consulted on 10/30, appreciate help. Awaiting recommendations #Hyponatremia This was thought to be hypovolemic related but appears to be acute on chronic issue. 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 Previous urine sodium < 20, urine osm 715, and serum osmolality 290. -Sodium 126 on 10/30 (recently 129 on 10/23). Asymptomatic -Labs one 10/30 -Urine sodium: < 20 -Urine osmolality: 735 -Serum osmolality: 273 (mildly low) -Continue 2L/day fluid restriction at this time -Repeat BMP on 10/31 -Presenting like SIADH presentation. If worsens, consider tightening fluid restriction. If symptomatic (confusion, convulsions), provide hypertonic saline 200-300 ml IVF over 3-4 hours #Hypertension -PROFESSIONAL SERVICES CONSULTANT Lisinopril 30 mg daily #Hyperlipidemia -Continue PROFESSIONAL SERVICES CONSULTANT ezetimibe 10mg daily -Atorvastatin 40 mg every evening #Liver lesions Noted on initial CT chest. Patient and state that they were aware of these but I cannot find previous abdominal imaging. MRI obtained on 10/14 confirmed lesions raising question of metastatic disease. Patient may require biopsy for this. Patient follows in [facility] system. -Consider assessing with primary care provider in [facility] #Obstructive sleep apnea -Use home CPAP #Chronic back pain -Acetaminophen 650 mg q4hrs prn -Diclofenac 2g QID daily -Lidocaine patch 4% 2 patch q12 hours -Oxycodone 5mg BID prn -Tizanidine 2-4 mg q8hrs prn Adjustment to disability: Clinical psychology to eval and treat if indicated FEN: Regular diet Bowel: Psyllium 5 capsule daily Bladder: Assess continence DVT Prophylaxis: Apixaban GI Prophylaxis: None Code: FULL Code Disposition: Home with home care and home with outpatient therapy ELOS: 10 days. Rehab prognosis: Good Follow up Appointments on Discharge: PCP PM&R Thoracic surgery follow-up in [address] chest Cardiology Neurology Pulmonary? Patient reviewed with attending physician, Dr. Monroe, who agrees with the assessment and plan. Reji To, DO Resident Physician [facility] PM&R PGY-2 [facility] 10/30/2024 Cosigned by Finn Monroe DO at 10/30/2024 5:05 PM CDT Associated attestation - Finn Monroe DO - 10/30/2024 5:05 PM CDT Physician Attestation I personally examined and evaluated this patient. I discussed the patient with the resident/fellow and care team, and agree with the assessment and plan of care as documented in the note. Please see A&P for additional details of medical decision making. I have personally reviewed the following data over the past 24 hrs: 8.3 \ 11.4 (L) / 429 126 (L) 88 (L) 11.7 / 366 (H) 5.2 25 0.68 \ Finn Monroe DO Date of Service (when I saw the patient): 10/30/24 documented in this encounter H&P Notes * Reji Roca DO - 10/29/2024 1:58 PM CDT Images from the original note were not included. [facility] Acute Rehabilitation Unit Admission History and Physical CHIEF COMPLAINT Ischemic stroke HISTORY OF PRESENT ILLNESS Santy Glez is a 63 year old male with [...] amiodarone infusion. Patient spontaneously converted to sinus rhythm. Neurology was consulted on 10/27due to continued L sided weakness and previous MRI result that recommended repeat imaging due to showing Interval development of 1 cm linear focus of restricted diffusion posterior to the right frontal resection cavity. Differential considerations include acute ischemia, posttreatment change, or recurrence. Neurology diagnosed an acute ischemic stroke of right frontal lobe possibly due to cardioembolism despite anticoagulation; some concern for hypercoagulability of malignancy given liver lesions. Patient reportedly had a fall event on day of discharge from [facility]. Patient reportedly had his legs buckled when he was throwing away tissue paper and bedroom. Patient denied having head trauma, loss of consciousness, shortness of breath, or fractures. Patient was deemed stable and thus possible discharge was proceeded with no further testing. At baseline patient lives with his in a multi-level home and is independent in all ADL, mobility and I/ADL despite very mild residual fine motor deficit on L due to astrocytoma. 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 Currently, he is far below baseline and requires assist of 1-2 for all ADL and functional mobility. Pt requires CGA for bed mobility, with [...] He needs assist of 1 for all ADL. OT should also screen cognition and involve SERVICE UNIT OPERATOR OIL WELL if any major deficits are noted. Patient requires an intensive inpatient rehab program to address the following acute impairments: L hemiplegia, impaired activity tolerance, impaired balance, impaired coordination, impaired ROM, and impaired strength. Inpatient rehab with intensive PT and OT is indicated to maximize independence and safety for home, return to the community. During acute hospitalization, patient was seen and evaluated by PT and OT who collectively recommended that patient would benefit from ongoing therapies in the acute inpatient rehabilitation setting. In review of the therapy notes: Level of Function: GG Scale (Section GG Functional Ability and Goals; [facility]'s RESENDEZ Version 3.0 Manual effective 05.20.2019): [...] to safety 6 Independent Cognition Impaired Independent SERVICE UNIT OPERATOR OIL WELL Current Function Goals for Rehab Swallow Not Impaired Not applicable Communication Not Impaired Not applicable Upon arrival to the rehab unit, patient reports feeling well. at bedside. Patient denies pain at this time. Patient mentions that he does have chronic back pain. In general, patient states that he sleeps well. No problems with eating and drinking at this time. Patient states that he is continent of bowel and bladder. At this time, denies headache, nausea/vomiting, blurry vision, shortness ofbreath, chest pain, and abdominal pain. Patient states that he started having left upper and lower extremity weakness around the time of his astrocytoma which was resected in 1998. Since then, patient states that his left upper and left lower extremity have been functioning well until his hospitaliz ation course which he noticed his left upper and left lower extremity getting weaker. Patient has ahistory of seizures due to the astrocytoma. No seizures recently, last big seizure he had was in 2019. Patient is currently on Lamictal. Patient is a type I diabetic in which he previously had an insulin pump that was externally attached which she does not use at this moment. Patient does have a glucose reader on his left tricep in which she is able to see his glucose readings on his hayde. At the time of the encounter, patient showed that his blood glucose level was at 73 in which requestedfor juice to help increase patient's glucose levels. During this time, patient denies any dizzinessor lightheadedness. Patient is breathing well on room air at the moment. Patient states that he hasstopped using oxygen since 12 PM today. checked oxygen saturation at bedside in which patient was at 93% on room air. brought home CPAP for patient to use. Patient continues to be on fluid restriction to 2000 mL/day due to hyponatremia. PAST MEDICAL HISTORY Reviewed and updated in [facility]. Past Medical History: Diagnosis Date Benign essential hypertension 11/24/2019 Bilateral carotid artery stenosis 11/21/2016 Brain tumor (H) 1998 Cancer (H) 04/1999 Astrocytoma Chronic systolic heart failure (H) 04/28/2019 Grade 4/6 03/17/19, but most recent echo 12/2020 with resolutions and EF 65-70% Diabetes (H) 2020 ESCALONA (dyspnea on exertion) 04/28/2019 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 Ischemic stroke (H) 10/29/2024 Lateral epicondylitis of left elbow 03/28/2019 Nonrheumatic aortic valve stenosis 03/08/2018 severe-s/p bioprosthetic AVR JEFERSON (obstructive sleep apnea) 11/21/2016 Paroxysmal atrial fibrillation (H) Seizures (H) SURGICAL HISTORY Reviewed and updated in [facility]. Past Surgical History: Procedure Laterality Date APPENDECTOMY 1998 BIOPSY 2021 Basal cell carcinoma, Mohs surgery performed BRAIN SURGERY x2 COLONOSCOPY 2012 Polyps removed COLONOSCOPY N/A 05/14/2023 Procedure: Colonoscopy with polypectomy using jumbo forcep; Surgeon: Jazmyn Lord MD; Location: GI CV CORONARY ANGIOGRAM N/A 06/18/2019 Procedure: CV Coronary Angiogram; Surgeon: Juan Wu MD; Location: HEART CARDIAC [facility] SPECIALIST EYE SURGERY Lasik REPLACE VALVE AORTIC N/A 07/04/2019 Procedure: AORTIC VALVE REPLACEMENT WITH VALVE AORTIC PERIMOUNT MAGNA-EASE BIOPROSTH SIZE: 23MM ON PUMP OXYGENATOR AND [facility]LOS [facility]UARDO BY [facility]; Surgeon: Ej Haines MD; Location: OR TONSILLECTOMY UVULECTOMY 1993 SOCIAL HISTORY Reviewed and updated in [facility]. Marital Status: Living situation: Patient lives in a 2 story home with basement. 2 stairs to enter home and 10 stairs within home. There are rails inside home. 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 Tobacco use: None Alcohol use: Occasional Illicit drug use: None Social History Socioeconomic History Marital status: Spouse [...] None Other Topics Concern Parent/sibling w/ CABG, [place] or angioplasty before 65F 55M? No Social History Narrative Not on file Social Drivers of Health Financial Resource Strain: Low Risk (10/29/2024) Financial Resource Strain Within the past 12 months, have you or your family members you live with been unable to get utilities (heat, electricity) when it was really needed?: No Food Insecurity: Low Risk (10/29/2024) Food Insecurity Within the past 12 months, did you worry that your food would run out before you got money to buy more?: No Within the past 12 months, did the food you bought just not last and you didn???t have money to getmore?: No Transportation Needs: Low Risk (10/12/2024) Transportation Needs Within the past 12 months, has lack of transportation kept you from medical appointments, getting your medicines, non-medical meetings or appointments, work, or from getting things that you need?: No Physical Activity: Insufficiently Active (07/12/2023) Exercise Vital Sign Days of Exercise per Week: 3 days Minutes of Exercise per Session: 30 min Stress: Patient Declined (07/12/2023) [place] [place] [employer] - Occupational Stress Questionnaire Feeling of Stress : Patient declined Social Connections: Socially Integrated (07/12/2023) Social Connection and Isolation Panel [NHANES] Frequency of Communication with Friends and Family: Twice a week Frequency of Social Gatherings with Friends and Family: Once a week Attends [employer] Services: More than 4 times per year Active Member of Clubs or Organizations: Yes Attends Club or Organization Meetings: More than 4 times per year Marital Status: Interpersonal Safety: Low Risk (10/12/2024) Interpersonal Safety Do you feel physically and emotionally safe where you currently live?: Yes Within the past 12 months, have you been hit, slapped, kicked or otherwise physically hurt by someone?: No Within the past 12 months, have you been humiliated or emotionally abused in other ways by your partner or ex-partner?: No Housing Stability: Low Risk (10/29/2024) Housing Stability Do you have housing? : Yes Are you worried about losing your housing?: No FAMILY HISTORY Reviewed and updated in [facility]. Family History Problem Relation Age of Onset Hypertension Mother Thyroid Disease Mother Bladder Cancer Father Other Cancer Father Bladder cancer Cerebrovascular Disease Maternal Grandmother Heart Disease Paternal Grandmother Lung Cancer Paternal Grandfather Lupus Daughter Seizure Disorder Sister Thyroid Disease Sister Diabetes Sister Thyroid Disease Sister Thyroid Disease Brother Breast Cancer Other PRIOR FUNCTIONAL HISTORY Pt was independent with all ADLs/IADLs, transfers, mobility and gait. Patient previously drove MEDICATIONS Scheduled meds Medications Prior to Admission Medication Sig Dispense Refill Last Dose/Taking acetaminophen (TYLENOL) 325 MG tablet Take 2 tablets (650 mg) by mouth every 4 hours as needed for mild pain or other (and adjunct with moderate or severe pain or per patient request). acetone urine (KETOSTIX) test strip Use to check urine ketones in the event of pump failure or unexplained blood glucoses over 250 and not resolving. 25 strip 3 amiodarone (PACERONE) 200 MG tablet Take 1 tablet (200 mg) by mouth daily for 14 days. 14 tablet 0 apixaban ANTICOAGULANT (ELIQUIS ANTICOAGULANT) 5 MG tablet Take 1 tablet (5 mg) by mouth 2 times daily. Discontinue when bottle is completed and start ASA atorvastatin (LIPITOR) 40 MG tablet Take 1 tablet (40 mg) by mouth every evening. cholecalciferol (VITAMIN D3) 125 mcg (5000 units) capsule Take 125 mcg by mouth daily. Continuous Glucose Sensor (DEXCOM G7 SENSOR) MISC Change every 10 days. 9 each 5 ezetimibe (ZETIA) 10 MG tablet Take 10 mg by mouth every evening. insulin aspart (NOVOLOG FLEXPEN) 100 UNIT/ML pen 1 units per 15 gram carb unit before breakfast, lunch and dinner insulin aspart (NOVOLOG FLEXPEN) 100 UNIT/ML pen [...] give 1 unit. For BG 250 - 2 99 give 2 units. For BG 300 - 349 give 3 units. For BG 350 - 399 give 4 units. For BG greater than or equal to 400 give 5 units. Insulin Disposable Pump (OMNIPOD 5 G7 PODS, GEN 5,) MISC 1 pod See Admin Instructions. Change every3 days 30 each 3 insulin glargine (LANTUS PEN) 100 UNIT/ML pen Inject 30 Units subcutaneously at bedtime. INSULIN PUMP - OUTPATIENT Inject subcutaneously. Date Last Updated: 10/12/24 Omnipod BASAL RATES and times: Continuous (0727-8735: 0.9 units/hour CARB RATIO and times: 3056-4657: 1 unit for 10g of carbohydrates Corection Factor (Sensitivity) and times: 7586-0050: 1 unit lowers BG by 40 mg/dL [...] mg) by mouth daily. 90 tablet 1 Melatonin 10 MG TABS tablet Take 10 mg by mouth at bedtime. metFORMIN (GLUCOPHAGE) 500 MG tablet Take 1 tablet (500 mg) by mouth daily (with dinner) 90 tablet 3 metoprolol succinate ER (TOPROL XL) 50 MG 24 hr tablet Take 1 tablet (50 mg) by mouth 2 times daily. Multiple Vitamins-Minerals (MENS MULTI VITAMIN & MINERAL PO) Take 1 tablet by mouth daily oxyCODONE (ROXICODONE) 5 MG tablet Take 1 tablet (5 mg) by mouth every 4 hours as needed for severepain. 10 tablet 0 Psyllium (METAMUCIL FIBER PO) Take 1 Dose by mouth daily. senna-docusate (SENOKOT-S/PERICOLACE) 8.6-50 MG tablet Take 1 tablet by mouth 2 times daily as needed for constipation. sildenafil (VIAGRA) 100 MG tablet Take 1 tablet (100 mg) by mouth daily as needed (30 minutes priorto sexual activity) 12 tablet 11 tiZANidine (ZANAFLEX) 2 MG tablet TAKE 1-2 TABLETS BY MOUTH EVERY NIGHT AT BEDTIME NEEDED DIRECTED FOR LOW BACK PAIN* vitamin C (ASCORBIC ACID) 1000 MG TABS Take 1 tablet by mouth daily zinc gluconate 50 MG tablet Take 50 mg by mouth daily ALLERGIES Allergies Allergen Reactions Carbamazepine Rash Phenobarbital Phenytoin Rash high fever Valproic Acid Rash Procarbazine Rash Sulfa Antibiotics Rash REVIEW OF SYSTEMS A 10 point ROS was performed and negative unless otherwise noted in HPI. PHYSICAL EXAM VITAL SIGNS: BP 127/76 (BP Location: Right arm) Pulse 83 Temp 98.1 ??F (36.7 ??C) (Oral) Resp16 Ht 1.778 m (5' 10) Wt 81.6 kg (180 lb) SpO2 98% BMI 25.83 kg/m?? BMI: Estimated body mass index is 25.83 kg/m?? as calculated from the following: Height as of this encounter: 1.778 m (5' 10). Weight as of this encounter: 81.6 kg (180 lb). General: Laying in bed, no acute distress HEENT: Previous head surgery scar appreciated on right side of head, pupils equal, round, and reactive to light. Anisocoria appreciated on left eye Pulmonary: Breathing comfortably on room air, clear to auscultation bilaterally Cardiovascular: Regular rate and rhythm, no murmurs rubs or gallops Abdominal: Non-tender, non-distended, bowel sounds present in all four quadrants Extremities: warm, well perfused, no edema in bilateral lower extremities, no tenderness in calves.Bilateral upper extremity extension tremor appreciated, L > R. Decreased range of motion with left upper extremity MSK/neuro: Mental Status: alert and oriented x3 Cranial Nerves: 2nd CN: Pupils equal, round, reactive to light and accomodation. and visual avendaño intact to confrontation. Esophoria left eye 3rd,4th,6th CN: EOMI, appropriate pupillary responses 5th CN: facial sensation intact 7th CN: face symmetrical 8th CN: functional hearing bilaterally 9th, 10th CN: palate elevates symmetrically 11th CN: sternocleidomastoids and trapezii strong 12th CN: tongue midline and without fasciculations Sensory: Normal to light touch in bilateral upper and lower extremities Strength: 5/5 in all muscle groups of the upper and lower extremities SF EF EE WE G I HF KE DF EHL PF R 5 5 5 5 5 5 5 5 5 5 5 L 5 5 5 5 5 5 5 5 5 5 5 Reflexes: Present and symmetrical Bueno's test: negative bilaterally Babinski reflex: downgoing bilaterally Abnormal movements: Essential tremor is appreciated bilateral upper extremity, L > R Speech: Clear speech Cognition: Appropriate Gait: Not assessed Skin: Healed chest tube site at upper right back near axillary LABS Pertinent labs: Magnesium 2.0 (10/29/2024) Phosphorus 3.9 (10/29/2024) Potassium 4.5 (10/28/2024) Sodium 129 (10/23/2024) Glucose last 24 hours: 98-347 IMPRESSION/PLAN: Santy Glez is a 63 year old right-handed 80 ARU dominant male with a past medical history oftype I diabetes, seizures, 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 Patient recently had influenza. CT chest showed right lower lung pneumonia, right pleural effusion and multiple liver lesions. Patient was treated with antibiotics. Patient underwent thoracentesis. Chest tube placed on 10/16 for loculated effusion. S/p t PA BID 10/20-10/23 to improve drainage and tube was removed on 10/24. No further management per thoracic surgery. Hospital course further complicated by atrial fibrillation with RVR which patient required amiodarone infusion. Spontaneously reverted back to sinus rhythm. Neurology was consulted due to continued left- sided weakness in which differential considerations included acute ischemia, posttreatment change, or recurrence. Neurology diagnosed an acute ischemic stroke of right frontal lobe due to cardioembolism despite anticoagulation. Admission to acute inpatient rehab 10/29/24. 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 Impairment of ADL's: Impairment in strength, endurance, and ROM resulting in functional limitationsin patient's ability to perform ADLs Impairment of mobility: Impairment in strength, endurance, and ROM resulting in functional limitations in patient's ability to perform functional mobility Medical Conditions #Acute hypoxic respiratory failure, resolved #Suspect postviral syndrome bacterial community-acquired pneumonia and right lower lung, resolved #Right parapneumonic effusion, resolved #Acute metabolic encephalopathy, likely related to above with falls, resolved #Cough, improving Patient arrived to ED on 10/12 presenting with fall, left-sided weakness and hypoxia. Of note, patient recently had influenza. CT chest showed right lower lung pneumonia, right pleural effusion and multiple liver lesions. Chest x-ray on 10/14 showed increasing right pleural effusion. Pulmonary was consulted. Patient was initially treated with Rocephin and Zithromax. This was changed to Zosyn on 10/14. Pulmonary consulted. Patient initially required 5 L of oxygen. Patient underwent thoracentesis. Chest tube placed on 10/16 for loculated effusion. S/p tPA BID 10/20-10/[address] chest on 10/23 showed improvement in pleural effusion with persistent right sided atelectasis, Chest tube wasremoved on 10/24. Pleural fluid cultures negative. Total course of antibiotics was 14 days, stop dateof Zosyn was on 10/28. Thoracic surgery consulted for residual pleural effusion and atelectasis following chest tube drainage. No recommendations for further intervention at this time. -Continue to assess respiratory status while on room air -Follow-up with thoracic surgery in [address] chest scan -For cough: Guaifenesin 600 mg bid, benzonatate 100 mg TID prn #History of right frontal lobe astrocytoma with resection, 1998 #Seizure disorder #Recrudescence of left upper and lower extremity weakness related to acute illness #Possible right ischemic stroke of frontal lobe Patient has chronic left arm and left leg weakness with astrocytoma that improved after treatment. Patient reportedly has recurrence of this weakness when patient is ill. Neurology was consulted on 10/27 due to continued L sided weakness and previous MRI result that recommended repeat imaging due toshowing Interval development of 1 cm linear focus of restricted diffusion posterior to the right frontal resection cavity. Differential considerations include acute ischemia, posttreatment change, orrecurrence. Neurology diagnosed an acute ischemic stroke of right frontal lobe possibly due to cardioembolism despite anticoagulation; some concern for hypercoagulability of malignancy given liver lesions. 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 Patient was able to convert to sinus rhythm on 10/15. Patient transitioned to oral amiodarone on 10/16 and will continue for 1 month. There is noted that patient intermittently was back in a trial fibrillation with borderline rate control starting on 10/17. Patient was transitioned from carvedilol 12.5 mg twice daily to Toprol-XL 50mg bid with good effect and conversion back to normal sinus rhythm -Oral amiodarone 200 mg x1 month (10/16/24-11/13/24) -Toprol-XL 50mg bid -Continue PROFESSIONAL SERVICES CONSULTANT apixaban 5mg bid -Ziopatch after rehab to measure atrial fibrillation burden vs loop recorder #Insulin-dependent diabetes, Type I #Hyperglycemia, improved Patient historically has been on insulin pump as well as metformin. Patient normally manages insulin pump but has not been eating well or feeling well so this was stopped during hospital stay. -Hypoglycemia protocol -BG checks QID before meals and bedtime -Prandial NovoLog 2 units for every 10 g of carbohydrates -High intensity sliding scale TID AC and at bedtime -Lantus 30 units daily -Metformin 500 mg daily with supper -Will consult endocrine regarding whether restarting insulin pump while on ARU is possible #Hyponatremia This was thought to be hypovolemic related but appears to be acute on chronic issue. 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 Previous urine sodium < 20 and urine osm 715. -Repeat BMP on 10/30 #Hypertension -PROFESSIONAL SERVICES CONSULTANT Lisinopril 30 mg daily #Hyperlipidemia -Continue PROFESSIONAL SERVICES CONSULTANT ezetimibe 10mg daily -Atorvastatin 40 mg every evening #Liver lesions Noted on initial CT chest. Patient and state that they were aware of these but I cannot find previous abdominal imaging. MRI obtained on 10/14 confirmed lesions raising question of metastatic disease. Patient may require biopsy for this. Patient follows in [facility] system. -Consider assessing with primary care provider in [facility] system #Obstructive sleep apnea -Use home CPAP #Chronic back pain -Acetaminophen 650 mg q4hrs prn -Diclofenac 2g QID daily -Lidocaine patch 4% 2 patch q12 hours -Oxycodone 5mg BID prn -Tizanidine 2-4 mg q8hrs prn Adjustment to disability: Clinical psychology to eval and treat if indicated FEN: Regular diet Bowel: Psyllium 5 capsule daily Bladder: Assess continence DVT Prophylaxis: Apixaban GI Prophylaxis: None Code: FULL Code Disposition: Home with home care and home with outpatient therapy ELOS: 10 days. Rehab prognosis: Good Follow up Appointments on Discharge: PCP PM&R Thoracic surgery follow-up in [address] chest Cardiology Neurology Pulmonary? Patient reviewed with attending physician, Dr. Barksdale, who agrees with the assessment and plan. Reji Roca DO Resident Physician, PGY-2 Physical Medicine and Rehabilitation [facility] 10/29/2024 Cosigned by Noemi Barksdale MD at 10/29/2024 7:16 PM CDT Associated attestation - Noemi Barksdale MD - 10/29/2024 7:16 PM CDT Physician Attestation I personally examined and evaluated this patient. I discussed the patient with the resident/fellow and care team, and agree with the assessment and plan of care as documented in the note. Remy findings: 63-year-old man with a past medical history of type 1 diabetes, history of seizures, astrocytoma inright frontal lobe status post resection, basal cell carcinoma, aortic valve regurgitation status post AVR, and A-fib chronically anticoagulated who initially presented the hospital on 10/12/2024 due to a fall and left-sided weakness. He was noted to be hypoxic with imaging demonstrating right lowerlobe pneumonia, right pleural effusion, multiple liver lesions. He required thoracentesis and chesttube placement for loculated effusions. Hospital course notable for increase of left hemiparesis with imaging demonstrating an interval development of a linear focus of restricted diffusion posteriorto his right frontal resection cavity. Neurology was consulted to further evaluate and impression was likely an acute stroke in the right frontal lobe. Etiology possibly due to cardioembolism despiteanticoagulation, however there is concern for hypercoagulability of malignancy given liver lesions.He will need outpatient follow-up regarding liver lesions for biopsy. Hospital course notable for hy perglycemia, at baseline has CGM and insulin pump in place but currently on Lantus and metformin. Will plan to consult endocrine to transition back to insulin pump if appropriate. Upon initial visit patient has no acute concerns or complaints but continues to feel weaker in the left upper and lowerextremities compared to baseline. Prior to hospitalization was independent with ambulation, mobility, ADLs, and IADLs including driving. Currently he is ambulating 120 feet at a time with assist x 1 and a walker and wheelchair follow. Min a for briefs, CGA for stand to sit transfers, standby assistfor upper body dressing. Social the patient lives with his who is a nurse in a house with 2 stairs to enter, and 10 stairs inside. works and he will need to be independent in order to discharge home. On exam he is in no acute distress, pleasant cooperative. Bilateral tremors noted, worse with intention. Cardiac exam was notable for systolic murmur. Decreased breath sounds on lung auscultation. Abdominal exam unremarkable. Prior surgical scar on the right side of the head noted. MMT 4/5 to left upper extremity, 5/5 to the right upper extremity, 4+/5 left hip flexion, otherwise 5/5 toall myotomes of the lower extremities bilaterally. Sensation intact to light touch to all extremities no evidence of neglect with sensory extinguishing. Reflexes normal without hyperreflexia or Bueno's bilaterally. The patient has impairments in strength, balance, endurance, and coordination leading to activity limitations in ambulation, mobility, and ADLs. He will participate in physical and occupational therapies for 90 minutes of each on a daily basis, 6 days/week, for an estimated 10-day l ength of stay. Goals will be for modified independence and prognosis is good. Please see A&P for additional details of medical decision making. Noemi Barksdale MD Date of Service (when I saw the patient): 10/29/24 documented in this encounter Consult Notes * Michelle Riggins, NITROGLYCERIN DISTRIBUTOR - 10/30/2024 12:06 PM CDTAssociated Order(s): SOCIAL WORK IP CONSULT; CARE MANAGEMENT / SOCIAL WORK IP CONSULT Social Work: Initial Assessment with Discharge Plan Patient Name: Santy Glez : 1960 Age: [age] year old Completed assessment with: Chart review and interview with patient. Admitted to ARU: 10/29/2024 Presenting Information Date of SW assessment: October 30, 2024 Health Care Directive: provided education and copy. Primary Health Care Agent: Patient/self. Secondary Health Care Agent: In absence of HC, per [facility] policy, pt.... would be HCD agent Living Situation: Patient lives in a 2 story home with basement. 2 stairs to enter home and 10 stairs within home. There are rails inside home. Previous Functional Status: Pt was independent with all ADLs/IADLs, transfers, mobility and gait. Patient previously drove. DME available: See therapy evaluation for more information Patient and family understanding of hospitalization: Appropriate and Pleasant. Cultural/Language/Spiritual Considerations: , Confucianism [employer], [place] Speaking Physical Health Reason for admission: Ischemic stroke; patient is a 63 year old right-handed 80 ARU dominant male with a past medical history of type I diabetes, seizures, astrocytoma in right frontal lobe of brain,basal cell carcinoma, systolic heart failure (now resolved), severe aortic valve regurgitation s/p bioprosthetic AVR in 2019, atrial fibrillation, and chronic anticoagulation with Eliquis who initially presented to the ED on 10/12 with a fall, left-sided weakness and hypoxia. Patient recently had influenza. CT chest showed right lower lung pneumonia, right pleural effusion and multiple liver lesions. Patient was treated with antibiotics. Patient underwent thoracentesis. Chest tube placed on 10/16for loculated effusion. S/p tPA BID 10/20-10/23 to improve drainage and tube was removed on 10/24. No further management per thoracic surgery. Hospital course further complicated by atrial fibrillation with RVR which patient required amiodarone infusion. Spontaneously reverted back to sinus rhythm. Neurology was consulted due to continued left-sided weakness in which differential considerations included acute ischemia, posttreatment change, or recurrence. Neurology diagnosed an acute ischemic stroke of right frontal lobe due to cardioembolism despite anticoagulation. Provider Information Primary Care Physician:Wilber Maharaj [id number] [place] [address] ARU MOHS SURGEON/GENERAL DERMATOLOGIST will schedule PCP apt at discharge. Steno Pool Supervisor: none reported Mental Health/Chemical Dependency: Diagnosis: Patient reports stable mood Alcohol/Tobacco/Narcotis: just occasionally drink Support/Services in Place: none reported Services Needed/Recommended: Hussein and Health Psychology support while on ARU available. 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 Income Source: wages from job; already contacted work about medical leave and all paperwork has been done. Education: Not discussed Financial Concerns: none reported Insurance: [employer] OF [place] Pain Assessment Pain Effect on Sleep Over the past 5 days, how much of the time has pain made it hard for you to sleep at night? 0. Does not apply - I have not had any pain or hurting in the past 5 days Pain Interference with Therapy Activities Over the past 5 days, how often have you limited your participation in rehabilitation therapy sessions due to pain? 0. Does not apply - I have not had any pain or hurting in the past 5 days TRANSPORTATION: Has lack of transportation kept you from medical appointments, meetings, work, or from getting things needed for daily living? A. Yes, it has kept me from medical appointments or from getting my medications B. Yes, it has kept me from non-medical meetings, appointments, work or from getting things that I need C. No X. Patient Unable to respond Y. Patient declines to respond Health Literacy: How Often do you need to have someone help you when you read instructions, pamphlets, or other written material from your doctor or pharmacy? 0. Never 1. Rarely 2. Sometimes 3. Often 4. Always 5. Patient declines to respond 6. Patient unable to respond SOCIAL ISOLATION How often do you feel lonely or isolated from those around you? 0. Never 1. Rarely 2. Sometimes 3. Often 4. Always 5. Patient declines to respond 6. Patient unable to respond Discharge Plan Patient and family discharge goal: To be determined, pending progress Provided Education on discharge plan: Evaluations and discharge recommendations pending. Patient agreeable to discharge plan: Pending further discussion. Evaluations and discharge recommendations pending. Provided education and attained signature for Medicare IM and IRF Patient Rights and Privacy Information provided to patient : N/A Provided patient with [place] Stroke/ Brain Injury [place] Resources: Yes Barriers to discharge: to be determined Discharge Recommendations Disposition: TBD, pending therapy updates Transportation Needs: Patient, family/friends, paid transport, insurance transport (if applicable) Name of Transportation Company and Phone: TBD Additional comments Discharge TBD, KATHERINE 10 days. Evals and discharge needs pending. SW met with pt at bedside and introduced self and role. Patient's point person is spouse Baylee; Patient does not have any questions or concerns at the moment. IRF completed. SW will continue to remain available for patient and family support, discharge planning, and accessto resources. Michelle Ely [facility], Acute Inpatient Rehab Unit [address] [place] [address], [address] [place] [address] * Alba Gasca PA - 10/30/2024 9:36 AM CDTAssociated Order(s): ENDOCRINE DIABETES ADULT IP CONSULT Images from the original note were not included. Inpatient Diabetes Management Service : New Consult Note Patient: Santy Glez Date of : 1960 Date of Consult : 10/30/2024 Date of Admission: 10/29/2024 Reason for Consult: hx of Type I diabetes. Normally manages a insnulin pump at home but held on acute care. Can we restart this while on ARU? Currently on carb count, high SSI, lantus, metformin Consult Requestor: Reji Roca DO History of Present Illness: Santy Glez is a 63 year old male with history of type I diabetes, seizures, astrocytoma in right frontal lobe of brain, basal cell carcinoma, systolic heart failure (now resolved), severe aortic valve regurgitation s/p bioprosthetic AVR in 2018, atrial fibrillation, and chronic anticoagulation with Eliquis. He presented to the ED on 10/12/2024 after a fall with L sided weakness. Patient recently had influenza. CT chest showed right lower lung pneumonia, right pleural effusion and multipleliver lesions. Patient was treated with antibiotics. Patient underwent thoracentesis. Chest tube placed on 10/16 for loculated effusion. S/p tPA BID 10/20-10/23 to improve drainage and tube was removed on10/24. No further management per thoracic surgery. Hospital course further complicated by atrial fibrillation with RVR which patient required amiodarone infusion. Spontaneously reverted back to sinus rhythm. Neurology was consulted due to continued left-sided weakness in which differential considerati ons included acute ischemia, posttreatment change, or recurrence. Neurology diagnosed an acute ischemic stroke of right frontal lobe due to cardioembolism despite anticoagulation. Inpatient Diabetes Service consulted for potentially restarting ambulatory insulin pump and glycemic adjustments. History obtained via the patient, chart review and discussion with primary team. Additional Historian: none Patient is not known to the Inpatient Diabetes Service from past admission(s). Current inpatient regimen: - Metformin 500 mg once daily with supper - Lantus 30 units once daily at bedtime - Novolog ICR 2 units per 10 g cho - Novolog correction 1:25>140 TID AC, >200 HS BG at time of consult: 337 Planned Procedures/Surgeries: none Relevant Labs on Admission: if contributory, otherwise see labs below Latest Reference Range & Units 10/30/24 06:19 Sodium 135 - 145 mmol/L 126 (L) Potassium 3.4 - 5.3 mmol/L 5.2 Chloride 98 - 107 mmol/L 88 (L) Carbon Dioxide (CO2) 22 - 29 mmol/L 25 Urea Nitrogen 8.0 - 23.0 mg/dL 11.7 Creatinine 0.67 - 1.17 mg/dL 0.68 GFR Estimate >60 mL/min/1.73m2 >90 Calcium 8.8 - 10.4 mg/dL 8.4 (L) Anion Gap 7 - 15 mmol/L 13 Magnesium 1.7 - 2.3 mg/dL 1.9 Glucose 70 - 99 mg/dL 337 (H) Osmolality 280 - 301 mmol/kg 273 (L) WBC 4.0 - 11.0 10e3/uL 8.3 Hemoglobin 13.3 - 17.7 g/dL 11.4 (L) Hematocrit 40.0 - 53.0 % 32.9 (L) Platelet Count 150 - 450 10e3/uL 429 RBC Count 4.40 - 5.90 10e6/uL 3.76 (L) MCV 78 - 100 fL 88 MCH 26.5 - 33.0 pg 30.3 MCHC 31.5 - 36.5 g/dL 34.7 RDW 10.0 - 15.0 % 11.9 Inpatient Glucose Trends: Diabetes History: Diabetes Type and Duration: JAVIER since 03/2021 Component Latest Ref Rng 04/08/2021 3:42 PM C-Peptide 0.9 - 6.9 ng/mL 1.0 Glutamic Acid Decarboxylase Antibody 0.0 - 5.0 IU/mL >250.0 (H) Sinc transporter 8 antibody, islet antibody, and insulin antibody not available on epic search PROFESSIONAL SERVICES CONSULTANT Medication Regimen: - Metformin 500mg daily - Novolog via Omnipod 5 with Dexcom G7 in auto-mode Pump settings (per chart review; no PDM at time of visit) Basal Rate: Midnight 0.9 units/hr Total Manual Basal: 21.6 units/day Insulin to carb ratio: 0000 10 Sensitivity factor: 0000 40 Target glucose: 110-120 Correct above: 120-130 Reverse correction: off Active insulin time: 2.5 hours Missing doses?: denies Historical Diabetes Medications: Metformin (started 2020), MDI, Omnipod insulin pump since 2020 Glucose monitoring device/frequency/trends: Dexcom G7; reports infrequent lows Hypoglycemia PROFESSIONAL SERVICES CONSULTANT: - Frequency: infrequent recently - Severity: no history of severe unconscious lows - Awareness: intact Outpatient Diabetes Provider: [facility] Endocrinology: Stephie Mahoney MD ([facility] 05/30/24) Formal Diabetes Education/Educator: yes - Federica Foster ([facility] 09/04/24) Complications: denies peripheral neuropathy, denies retinopathy (last eye exam: fall), deniesnephropathy, denies gastroparesis, + macrovascular disease (CAD, stroke) Most recent A1c: 7.5% 10/26/24 Hemoglobin at time of most recent A1c: 12.6 10/23/24 RBC transfusion 3 months prior to most recent A1c: none History of DKA: no Safety Plan: - Glucagon: +Baqsimi - Ketone Strips: not asked Medic Alert if Type 1: not asked Diet/Lifestyle/Living Situation: lives with Ability to [place] Prescribed Regimen: no concerns Food/Housing Insecurity: no concerns Medications Impacting Glycemia: Steroids: none D5W containing solutions/medications: none Other medications impacting glucose: none Diet/Nutrition: Orders Placed This Encounter Combination Diet Regular Diet; Thin Liquids (level 0) Supplements: none TF: none TPN: none Review of Systems: HEENT: denies vision changes Respiratory: denies shortness of breath GI: denies issues feeling nauseous, bloated, or vomiting after eating. MSK/Integumentary: denies issues at infusion sites or lipohypertrophy; no adhesive reactions to current technology Neuro: denies numbness, burning, or tingling in hands or feet. Past Medical History: Past Medical History: Diagnosis Date Benign essential hypertension 11/24/2019 Bilateral carotid artery stenosis 11/21/2016 Brain tumor (H) 1998 Cancer (H) 04/1999 Astrocytoma Chronic systolic heart failure (H) 04/28/2019 Grade 4/6 03/17/19, but most recent echo 12/2020 with resolutions and EF 65-70% Diabetes (H) 2020 ESCALONA (dyspnea on exertion) 04/28/2019 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 Ischemic stroke (H) 10/29/2024 Lateral epicondylitis of left elbow 03/28/2019 Nonrheumatic [...] Surgeon: Juan Wu MD; Location: [facility] Lasik REPLACE VALVE AORTIC N/A 07/04/2019 Procedure: AORTIC VALVE REPLACEMENT WITH VALVE AORTIC PERIMOUNT MAGNA-EASE BIOPROSTH SIZE: 23MM ON PUMP OXYGENATOR AND CARLOS EDUARDO BY HALEY; Surgeon: Ej Haines MD; Location: OR TONSILLECTOMY UVULECTOMY 1993 Social History: Social History Tobacco Use Smoking status: Never Smokeless tobacco: Never Substance Use Topics Alcohol use: Yes Comment: 2/week History Sexual Activity Sexual activity: Yes Partners: Female control/ protection: None Family History: Family History Problem Relation Age of Onset Hypertension Mother Thyroid Disease Mother Bladder Cancer Father Other Cancer Father Bladder cancer Cerebrovascular Disease Maternal Grandmother Heart Disease Paternal Grandmother Lung Cancer Paternal Grandfather Lupus Daughter Seizure Disorder Sister Thyroid Disease Sister Diabetes Sister Thyroid Disease Sister Thyroid Disease Brother Breast Cancer Other Physical Exam: BP (!) 150/99 (BP Location: Right arm) Pulse 83 Temp 97.9 ??F (36.6 ??C) (Oral) Resp 16 Ht 1.778 m (5' 10) Wt 81.6 kg (180 lb) SpO2 94% BMI 25.83 kg/m?? General: well appearing, in no acute distress. HEENT: sclera not injected Lungs: no SOB on RA Skin: warm and dry, no obvious lesions MSK: moving all extremities Lymp: no LE edema Neuro: Alert and oriented x3, tremor Psych: Cooperative, good eye contact, full/appropriate affect Laboratory Data: Lab Results Component Value Date A1C 7.5 (H) 10/26/2024 A1C 6.7 (H) 04/18/2024 A1C 6.6 (H) 07/19/2023 A1C 6.8 (H) 10/13/2022 A1C 6.8 (H) 05/05/2022 A1C 5.1 06/20/2019 Recent Labs Lab Test 10/30/24 0619 WBC 8.3 RBC 3.76* HGB 11.4* HCT 32.9* MCV 88 MCH 30.3 MCHC 34.7 RDW 11.9 PLT 429 Recent Labs Lab Test 10/30/24 0757 10/30/24 0715 10/30/24 0619 10/28/24 0826 10/28/24 0618 10/23/24 1714 10/23/24 1304 NA -- -- 126* -- -- -- 129* POTASSIUM -- -- 5.2 -- 4.5 -- 4.6 CHLORIDE -- -- 88* -- -- -- 94* CO2 -- -- 25 -- -- -- 29 ANIONGAP -- -- 13 -- -- -- 6* GLC 337* 360* 337* < > -- < > 150* BUN -- -- 11.7 -- -- -- 19.4 CR -- -- 0.68 -- -- -- 0.75 LUIS -- -- 8.4* -- -- -- 7.9* < > = values in this interval not displayed. Recent Labs Lab Test 10/14/24 1024 PROTTOTAL 5.8* 5.8* ALBUMIN 2.9* BILITOTAL 0.4 ALKPHOS 108 AST 17 ALT 20 Assessment and Recommendations: Assessment: JAVIER treated as Type 1 Diabetes Mellitus complicated by macrovascular disease and hyperglycemia. Fair control (A1c 7.5 % 10/26/24, Hgb: 12.6 10/23/24) Plan/Recommendations: - Change Lantus 30 --> 27 units q 24 hrs at 1800 - Change Novolog Meal Coverage: 2 units per 10 g --> 1 units per 5 g CHO, TID AC and 1:6 PRN with snacks/supplements Pt care order: Give pt mealtime insulin prior to meal. Cover carbs per his report of what he will eat. See PRN snack order if having a snack. - Novolog Correction Scale: 1:25>140 TID AC, >200 HS, 0200 (high resistance) - BG monitoring: TID AC, HS, 0200 - Hypoglycemia protocol - Carb counting protocol Discussion: Pt with significant hyperglycemia since admission to ARU. Upon closer review of carb coverage he did not seem to bet getting an adequate amount of insulin. Changed order this to a format more familiar to nursing staff prior to lunch. Discussed hospital policy for pump use with pt. He was in agreement with this. Also discussed need to wait until tomorrow to start insulin pump given need to adjust and verify settings--he was in agreement with this. Called pt ~1700 who reported his BG was in the mid-100s after lunch carb coverage and correction. [facility]. Will reduce Lantus slightly tonight for safety (given goal range for pt in hospital setting and non critically ill 100-180 mg/dL). Will also reduce PRNsnack coverage to avoid any insulin stacking. Briefly spoke via phone with pt's who was very upset at insulin management so far this admission. Requested he be placed on his pump tonight. Attempted to explain that I was not able to verify settings earlier today and would recommend changes based on his recent trends. Would also like more time here to evaluate what changes would be needed. She became very upset during our conversation and hung up the phone. Recommend transitioning to PROFESSIONAL SERVICES CONSULTANT insulin pump tomorrow. Will need to wait until ~24 hours after last glargine dose (anticipate [id number]). If settings as above are accurate recommend changing carb ratio to 1:5 or 1:6. Discharge Planning: (tentative) Medications: TBD. PROFESSIONAL SERVICES CONSULTANT insulin pump with setting adjustments Test Claims: none needed. Education: Needs to be assessed closer to discharge. Outpatient Follow-up: recommend [facility] (next scheduled 01/16/[address] Mahoney) Thank you for this consult. IDS will continue to follow. Please notify Inpatient Diabetes Service if changes are planned to steroids, nutrition, TPN/TF and anticipated procedures requiring prolonged NPO status. Alba Gasca PA-C Inpatient Diabetes Service Available on [employer] or Secure Chat To contact Inpatient Diabetes Service: 7 AM - 5 PM: Page the IDS HAYDE following the patient that day (see filed or incomplete progress notes/consult notes under Endocrinology) OR if uncertain of provider assignment: page job code [phone] 5 PM - 7 AM: First call after hours is to primary service. For urgent after-hours questions, page job code for news operations manager fellow: [phone] I spent a total of 80 minutes on the date of the encounter doing prep/post-work, chart review, history and exam, documentation and further activities per the note including lab review, multidisciplinary communication, counseling the patient and/or coordinating care regarding acute hyper/hypoglycemic management, as well as discharge management and planning/communication. See note for details. documented in this encounter Miscellaneous Notes * Plan of Care - Judith Pierce RN - 11/04/2024 12:36 PM CDT Goal Outcome Evaluation: Plan of Care Reviewed With: patient Overall Patient Progress: improvingOverall Patient Progress: improving Focus: Discharge D: Discharging to home with . Discussed all discharge information. He will pick out hand his mediations at [facility]. P: Discharge home. * Plan of Care - Melissa Ferreira - 11/04/2024 12:26 PM CDT Food Stylist Post-Acute Rehab SERVICE UNIT OPERATOR OIL WELL: Discharge Plan: home with . Ongoing SERVICE UNIT OPERATOR OIL WELL Precautions: fall Current Status: Hearing: WFL Vision: Glasses Communication: Motor speech, language intact Cognition: Mild cognitive impairment; mild memory and attention, moderate visuospatial, mild executive function Swallow: Regular solids/thin liquids (0). Not formally evaluated by ARU SERVICE UNIT OPERATOR OIL WELL. Assessment: Reviewed deductive reasoning task pt was given as homework from previous session. Noted2 errors and pt commented that he got stuck. With minimal verbal cue, pt able to correct errors. Ptengaged in KELLIE solving daily math problem with 80% accuracy independently, when cued to double check accuracy increased to 90%. Discussed with pt and spouse recommendations for ongoing therapy as well as the level of support pt will need with IADLS upon returning home. Other Barriers to Discharge (Family Training, etc): increased sup with medications? Recommend MAP prior to ARU discharge Cosigned by Gee Lawrence SERVICE UNIT OPERATOR OIL WELL at 11/04/2024 4:38 PM CDT Associated attestation - Gee Lawrence SLP - 11/04/2024 4:38 PM CDT Gee Jameson, MS [facility] SERVICE UNIT OPERATOR OIL WELL agree with the assessment and POC of Melissa Ferreira, SERVICE UNIT OPERATOR OIL WELL student. * Plan of Care - Judith Pierce RN - 11/04/2024 11:56 AM CDT Goal Outcome Evaluation: Ongoing Plan of Care Reviewed With: patient Overall Patient Progress: improvingOverall Patient Progress: improving Orientation: alert and oriented x4 Resp: no complaints of SOB. CPAP use tonight Pain: denies of pain Diet: regular diet thin liquids. Bladder: continent. Bowel:continent LBM 11/03/24 Ambulation/Transfer: A1 fWW Blood sugar level: 162/ Patient with insulin pump who self manages it Skin: rash on groin Safety:fall precaution Others:Sodium 125. * Plan of Care - Elida Reveles OT - 11/04/2024 9:51 AM CDT Food Stylist Post-Acute Rehab OT: Discharge Plan: Home with assist, HH OT Precautions: Falls, L weakness/tremors/slight inattention, monitor BG (pt has access to tracking onphone) Current Status: ADLs: Mobility: CGA-Min A with 2ww Grooming: SBA seated Dressing: LB: SBA/CGA, SBA socks/shoes, UB: SBA Bathing: bathing SBA Toileting: CGA transfer with grab bars IADLs: Pt was completely ind with IADLs at baseline. Vision/Cognition: Pt impulsive at times, vision and cognition seems unchanged from baseline per pt report. M-JOANA score 28/30 (score of 21 and below indicates deficit) Assessment: Family training completed. able to assist with all mobility, transfers and is aware of recommendations for supervision with ADL tasks and assist for all IADL. Recommend HHO T. would like to take pt home today. This would be fine from an OT stand point. Other Barriers to Discharge (DME, Family Training, etc): Grab bars in shower/near toilet, assist levels available at home - FT 11/04/ with Baylee 9am-11am. completed * Plan of Care - Morelia Lewis RN - 11/04/2024 6:53 AM CDT Goal Outcome Evaluation: Plan of Care Reviewed With: patient Overall Patient Progress: no changeOverall Patient Progress: no change Orientation: alert and oriented x4 Resp: no complaints of SOB. CPAP use tonight Pain: denies of pain Diet: regular diet thin liquids. Bladder: continent. Bowel:continent LBM 11/03/24 Ambulation/Transfer: A1 fWW Blood sugar level: bG at 2am- 319mg/dl patient said he gave himself 7 units of insulin BG 5am 297mg/dl Patient with insulin pump who self manages it Skin: rash on groin Safety:fall precaution Others: Recheck BMP this morninbg * Plan of Care - Makayla Velásquez RN - 11/03/2024 10:22 PM CDT Goal Outcome Evaluation: Plan of Care Reviewed With: patient Overall Patient Progress: no changeOverall Patient Progress: no change Pt alert and oriented x4. Denies chest pain and shortness of breath. Continent of both, LBM 11/03. Regular diet, thin liquids, takes pills whole, on 2000 mL fluid restriction. Pt manages insulin pump.Able to make needs known. Call light within reach, bed in low position. * Plan of Care - Finn Mosley, PT - 11/03/2024 11:50 AM CDT Food Stylist Post-Acute Rehab PT: Discharge Plan: home with assist, HHPT Precautions: falls, monitor BG (pt tracks on phone), L inattention Current Status: Bed Mobility: Art with HOB flat no rails Transfer: STS to FWW CGA, SPT with CGA-Art Gait: 200' with FWW and up to Art with turns Stairs: Art with R rail for balance, verbal cues for safety Balance: good static sitting, fair+ dynamic sitting, fair- static and dynamic standing Outcome Measures: TU.08 sec no device on 10/30 FGA: 12/17 no device on 10/30 Aiken/56 on 10/31 Assessment: Focused on standing/walking balance and postural control with reducing UE support and using body weight resistance for loading and midline orientation; still has difficulty with directional changes with noted disruption to stability when turning around. Other Barriers to Discharge (DME, Family Training, etc): Family training FWW Pt owns: SPC (need to confirm), no other DME reported * Plan of Care - Elida Reveles, OT - 11/03/2024 10:17 AM CDT Food Stylist Post-Acute Rehab OT: Discharge Plan: Home with assist, OP OT Precautions: Falls, L weakness/tremors/slight inattention, monitor BG (pt has access to tracking onphone) Current Status: ADLs: Mobility: CGA-Min A with 2ww Grooming: SBA seated Dressing: LB: min A, SBA socks/shoes, UB: SBA Bathing: bathing min A Toileting: CGA transfer with grab bars IADLs: Pt was completely ind with IADLs at baseline. Vision/Cognition: Pt impulsive at times, vision and cognition seems unchanged from baseline per pt report. M-JOANA score 28/30 (score of 21 and below indicates deficit) Assessment: ADL completed at CGA level with cues for L side and safety. Setup family training with on 11/04 9-11am Other Barriers to Discharge (DME, Family Training, etc): Grab bars in shower/near toilet, assist levels available at home - FT 11/04/ with Baylee 9am-11am. * Plan of Care - Gee Lawrence SERVICE UNIT OPERATOR OIL WELL - 11/03/2024 9:59 AM CDT Food Stylist Post-Acute Rehab SERVICE UNIT OPERATOR OIL WELL: Discharge Plan: home with . Ongoing SERVICE UNIT OPERATOR OIL WELL Precautions: fall Current Status: Hearing: WFL Vision: Glasses Communication: Motor speech, language intact Cognition: Mild cognitive impairment; mild memory and attention, moderate visuospatial, mild executive function Swallow: Regular solids/thin liquids (0). Not formally evaluated by ARU SERVICE UNIT OPERATOR OIL WELL. Assessment: Patient engaged in KELLIE tasks as treatment. Able to tell time on a clock with 100% accuracy. Counting of money with 80% accuracy. with just a second attempt, ablel to improve to 100% accuracy. Other Barriers to Discharge (Family Training, etc): increased sup with medications? Recommend MAP prior to ARU discharge * Plan of Care - Gifty Rodriguez RN - 11/03/2024 5:33 AM CDT Goal Outcome Evaluation: Plan of Care Reviewed With: patient Overall Patient Progress: no change Pt alert orientedx4, Calls appropriately. Continent of bladder uses urinal,LBM 11/02. Denies pain SOB and chest pain, CPAP at night. Slept most of the shift. Safety measures in place. Call light within reach. Will continue with current POC. * Plan of Care - Irwin Peña RN - 11/02/2024 9:53 PM CDT Goal Outcome Evaluation: Plan of Care Reviewed With: patient Overall Patient Progress: no changeOverall Patient Progress: no change Pt A&Ox4, no pain, transfers CGA walker gaitbelt, continent of bowel and bladder last BM 11/02, diet regular thin pills whole with FR 2000mL, skin intact with some small amount of redness in groin. Bed lowered and call light within reach. Pt has own insulin pump. * Plan of Care - uJana Saleem - 11/02/2024 1:52 PM CDT Food Stylist Post-Acute Rehab PT: Discharge Plan: home with assist, HHPT Precautions: falls, monitor BG (pt tracks on phone), L inattention Current Status: Bed Mobility: Art with HOB flat no rails Transfer: STS to FWW CGA, SPT with CGA-Art Gait: 200' with FWW and up to Art with turns Stairs: Art with R rail for balance, verbal cues for safety Balance: good static sitting, fair+ dynamic sitting, fair- static and dynamic standing Outcome Measures: TU.08 sec no device on 10/30 FGA: 12/17 no device on 10/30 Aiken/56 on 10/31 Assessment: Pt demonstrating improved balance and coordination with WBing through L UE on table butstill requires verbal cues for L foot placement with mobility. Other Barriers to Discharge (DME, Family Training, etc): Family training FWW Pt owns: SPC (need to confirm), no other DME reported Cosigned by Ashley Nix, PT at 11/05/2024 7:56 AM CDT Associated attestation - Ashley Nix PT - 11/05/2024 7:56 AM CDT Ashley Jameson DPT agree with the assessment and POC of MIRNA Black. * Plan of Care - Ender Chaney RN - 11/02/2024 1:10 PM CDT Goal Outcome Evaluation: Plan of Care Reviewed With: patient Overall Patient Progress: no change Overall Patient Progress: no change Orientation: AOx4 Bowel: Continent LBM: 11-02-24 Bladder: Continent; Ind w/ Urinal Pain: Denies Ambulation/Transfers: CGA w/ WW and GB Blood sugars: 141 mg/dl @ lunch time Diet/Liquids: Regular Diet; Thin Liquids; Pills Whole Tubes/Lines/Drains: N/A Skin: Unchanged from last assessment No acute changes this shift. Continue POC. * Plan of Care - Elida Reveles, OT - 11/02/2024 12:05 PM CDT OT: Pt participated in the established Transitions Group for stroke pts. Highlighting topics suchas return to meaningful activities, rehab course, neuroplasticity, follow up therapy, fall prevention, health/wellness, fatigue, depression/anxiety, bowel/bladder considerations w/ community re-integration and caregiver wellness/support. Pt very receptive to class. Pt reports personal goals after discharge are to go fishing again. * Plan of Care - Yo Robledo SLP - 11/02/2024 9:46 AM CDT Food Stylist Post-Acute Rehab SERVICE UNIT OPERATOR OIL WELL: Discharge Plan: home with . Ongoing SERVICE UNIT OPERATOR OIL WELL Precautions: fall Current Status: Hearing: WFL Vision: Glasses Communication: Motor speech, language intact Cognition: Mild cognitive impairment; mild memory and attention, moderate visuospatial, mild executive function Swallow: Regular solids/thin liquids (0). Not formally evaluated by ARU SERVICE UNIT OPERATOR OIL WELL. Assessment: Motor speech, language intact. RBANS form A administered and interpreted. Pt with rght/dominant upper extremity tremors, figure copy and recall task sdoring per clinical judgment considering effect of tremor on writing. Coding task modified due to tremor, SERVICE UNIT OPERATOR OIL WELL wrote number per pt dictation. Prior to test, pt reported long history of memory deficits; after word list learning task pt stated, A year ago, I wouldn't have been able to do that, either. Pt overall score in mild cognitive impairment range. Pt with moderate visuospatial deficits, mild immediate and delayed recall, mild attention deficits. Language score within normal limits. Given new right CVA, skilled SERVICE UNIT OPERATOR OIL WELL services indicated to instruct in therapeutic exercises and activities to promote cognitive function and to determine level of assist, effective strategies to promote safety and independence in home environment. Other Barriers to Discharge (Family Training, etc): increased sup with medications? Recommend MAP prior to ARU discharge * Plan of Care - Gifty Rodriguez RN - 11/02/2024 6:00 AM CDT Goal Outcome Evaluation: Plan of Care Reviewed With: patient Overall Patient Progress: no changeOverall Patient Progress: no change Pt alert orientedx4, Calls appropriately. Continent of bladder uses urinal, no BM this shift. Denies pain SOB and chest pain, CPAP at night. Slept most of the shift. Safety measures in place. Call light within reach. Will continue with current POC. * Plan of Care - Vania Mcbride RN - 11/01/2024 9:05 PM CDT Goal Outcome Evaluation: Plan of Care Reviewed With: patient Overall Patient Progress: no changeOverall Patient Progress: no change Orientation: alert and oriented x4 VS: stable Pain: c/o right back pain, 3/10, prn Tizanidine 2mg given at HS Ambulation/ Transfers: CGA with walker Bowel: LBM 315 incontinent per I&O Bladder: continent used urinal or toilet Diet/ Liquids: regular/ thin, FR 2000ml Blood Sugars: 123, 149 pt manages ambulatory insulin infusion pump independently Skin: groin rash, antifungal powder applied Bed and chair alarms on for safety, call light within reach. * Plan of Care - Ender Chaney RN - 11/01/2024 2:49 PM CDT Goal Outcome Evaluation: Plan of Care Reviewed With: patient Overall Patient Progress: improving Overall Patient Progress: improving Orientation: AOx4 Bowel: Continent LBM: 11-01-24 Bladder: Continent Pain: Denies Ambulation/Transfers: Ax1 w/ WW and GB Blood sugars: 156 mg/dl @ 1116H Diet/Liquids: Regular Diet; Thin Liquids; Pills Whole Tubes/Lines/Drains: N/A Skin: WDL Please make sure that the chair alarm is turned on whilst the patient is sitting down on the chair.No other acute changes this shift. Continue POC. * Plan of Care - Elida Reveles, OT - 11/01/2024 8:04 AM CDT Food Stylist Post-Acute Rehab OT: Discharge Plan: Home with assist, OP OT hand therapy? Pending progress Precautions: Falls, L weakness/tremors/slight inattention, monitor BG (pt has access to tracking onphone) Current Status: ADLs: Mobility: CGA-Min A with 2ww Grooming: SBA seated Dressing: LB: min A, SBA socks/shoes, UB: SBA Bathing: bathing min A Toileting: CGA transfer with grab bars IADLs: Pt was completely ind with IADLs at baseline. Vision/Cognition: Pt impulsive at times, vision and cognition seems unchanged from baseline per pt report. M-JOANA score 28/30 (score of 21 and below indicates deficit) Assessment: L hand function is significantly impacted by tremors. 9 hole peg test score for left hand was 174 sec with and without use of a 1# wrist weight. Nursing to assess ability to manage diabetes items. Other Barriers to Discharge (DME, Family Training, etc): Grab bars in shower/near toilet, assist levels available at home - will likely need family training. * Plan of Care - Byron Turcios RN - 11/01/2024 4:12 AM CDT FOCUS/GOAL Medication management, Safety management, and Prevention of secondary complications ASSESSMENT, INTERVENTIONS AND CONTINUING PLAN FOR GOAL: Pt incontinent of loose BM overnight. On 2000ml fluid restriction. BG checks at 2am and 5am, has ambulatory insulin pump on thigh. BG at 2am was 210. On seizure precautions. Goal Outcome Evaluation: * Plan of Care - Vania Mcbride RN - 10/31/2024 10:28 PM CDT Goal Outcome Evaluation: Plan of Care Reviewed With: patient Overall Patient Progress: improvingOverall Patient Progress: improving Orientation: alert and oriented x4 VS: stable Pain: denies Ambulation/ Transfers: Ax1 with walker Bowel: continent, LBM today Bladder: continent, used urinal independently x2 Diet/ Liquids: regular/thin, FR 200ml Blood Sugars: 231 and 124, pt manages ambulatory insulin pump, needing assist to draw insulin from vial due to left hand weakness/tremor. Tubes/ Lines/ Drains: insulin pump to left thigh, replaced at 1700 Skin: groin rash, antifungal powder applied Bed and chair alarms on for safety, call light within reach. * Plan of Care - Juana Saleem - 10/31/2024 4:34 PM CDT Food Stylist Post-Acute Rehab PT: Discharge Plan: home with assist, HHPT Precautions: falls, monitor BG (pt tracks on phone), L inattention Current Status: Bed Mobility: Art with HOB flat no rails Transfer: STS to FWW CGA, SPT with CGA-Art Gait: 200' with FWW and up to Art with turns Stairs: Art with R rail for balance, verbal cues for safety Balance: good static sitting, fair+ dynamic sitting, fair- static and dynamic standing Outcome Measures: TU.08 sec no device on 10/30 FGA: 12/17 no device on 10/30 Aiken/56 on 10/31 Assessment: Pt demonstrated improved gait mechanics and safety. Aiken score indicates he is at high risk for falls which correlates with the coordination and dynamic gait instability identified upon eval. During Aiken pt had LOB with turning that required MaxAx1 to recover. Recommending continued useof FWW. Other Barriers to Discharge (DME, Family Training, etc): Family training FWW Pt owns: SPC (need to confirm), no other DME reported Cosigned by Ashley Nix, PT at 10/31/2024 4:44 PM CDT Associated attestation - Ashley Nix, PT - 10/31/2024 4:44 PM CDT Ashley Jameson DPT agree with the assessment and POC of MIRNA Black. * Plan of Care - Elida Reveles OT - 10/31/2024 11:01 AM CDT Food Stylist Post-Acute Rehab OT: Discharge Plan: Home with assist, OP OT hand therapy? Pending progress Precautions: Falls, L weakness/tremors/slight inattention, monitor BG (pt has access to tracking onphone) Current Status: ADLs: Mobility: CGA-Min A with 2ww Grooming: SBA seated Dressing: LB: min A, SBA socks/shoes, UB: SBA Bathing: bathing min A Toileting: CGA transfer with grab bars IADLs: Pt was completely ind with IADLs at baseline. Vision/Cognition: Pt impulsive at times, vision and cognition seems unchanged from baseline per pt report. Assessment: Pt completed shower and ADL. Some cueing and up to min A. Recommend SERVICE UNIT OPERATOR OIL WELL involvement post stroke. Other Barriers to Discharge (DME, Family Training, etc): Grab bars in shower/near toilet, assist levels available at home - will likely need family training. * Plan of Care - Aurora Celis RN - 10/31/2024 9:43 AM CDT VS: Pt A/O X 4. VSS. Lungs- clear bilaterally, anterior and posterior. Denies nausea, shortness of breath, and chest pain. Output: Bowels- Continent of B/B. LBM 10/30/24 Activity: A1 with walker & GB Skin: Old chest tube site. Top of right-side of head. Pain: Tylenol to manage pain CMS: CMS and Neuro's are intact. Denies numbness and tingling in all extremities. Dressing: None. Top of head, right side. Diet: Pt is on a regular/thin/whole diet and appetite was good this shift. LDA: None Equipment: Walker. GB. Call light within reach. Plan: Pt is able to make needs known and the call light is within the pt's reach. Continue to monitor. Additional Info: 2000 ml fluid restriction. This shift, 1080 Goal Outcome Evaluation: * Plan of Care - Silvia Marquez RN - 10/31/2024 7:50 AM CDT Goal Outcome Evaluation: Plan of Care Reviewed With: patient Overall Patient Progress: no changeOverall Patient Progress: no change Patient alert and oriented, able to make needs known Slept most of the night No complained of pain, no respiratory distress, wears CPAP at night BG checked @ 2am, no coverage, parameters not met Continent of Bladder, utilized urinal at night, no BM this shift Safety checks done, Fall prevention maintained, bed alarm ON, call light in reach No acute event overnight Plan of care ongoing. * Plan of Care - Yris Jimenez RN - 10/30/2024 10:25 PM CDT [id number] Goal Outcome Evaluation: Plan of Care Reviewed With: patient Overall Patient Progress: no change Overall Patient Progress: no change VS: Stable on RA. CPAP at night Pain: R back pain - voltaren gel applied. Tylenol & zanaflex given Neuro/MSK: A&O x4. Denies numbness & tingling. Tremor present. L sided weakness Activity: Ax1 with walker/GB Diet: Regular with thin liquids. Takes pills whole. Carb count & coverage. 2L fluid restriction GI/: Continent of B&B. No BM this shift Skin: Redness on groin - miconazole powder applied. R chest tube site - dressing CDI Shift Notes: No acute changes this shift * Plan of Care - Tawanna Boudreaux RN - 10/30/2024 3:20 PM CDT Goal Outcome Evaluation: Plan of Care Reviewed With: patient Overall Patient Progress: no changeOverall Patient Progress: no change A/OX4, able to make his needs known, blood sugar has been high, coverages administered, see changeswith insulin doses, urine sample collected and sent to lab as ordered, ate poorly in the morning but ate about 85% of his lunch and 50% of his diner, remains on carbohydrate count, Lidocaine applied to back for back pain, continent with bowel and bladder, regular diet thin liquids, A1/W/GB, will continue plan of care * Pharmacy-Medication Regimen Review - Mamta Florentino [facility] - 10/30/2024 12:54 PM CDT Pharmacy Medication Regimen Review Santy Glez is a 63 year old male who is currently in the Acute Rehab Unit. Assessment: All medications have an appropriate indications, durations and no unnecessary use was found Plan: Continue current medication regimen. Attending provider will be sent this note for review. If there are any emergent issues noted above,pharmacist will contact provider directly by phone. Pharmacy will periodically review the resident's medication regimen for any PRN medications not administered in > 72 hours and discontinue them. The pharmacist will discuss gradual dose reductionsof psychopharmacologic medications with interdisciplinary team on a regular basis. Please contact pharmacy if the above does not answer specific medication questions/concerns. Background: A pharmacist has reviewed all medications and pertinent medical history today. Medications were reviewed for appropriate use and any irregularities found are listed with recommendations. Current Facility-Administered Medications: acetaminophen (TYLENOL) tablet 650 mg, 650 mg, Oral, Q4H PRN, Zee Espana PA-C, 650 mg at 10/29/24 1558 amiodarone (PACERONE) tablet 200 mg, 200 mg, Oral, Daily, Zee Espana PA-C, 200 mg at 10/30/24823 apixaban ANTICOAGULANT (ELIQUIS) tablet 5 mg, 5 mg, Oral, BID, Zee Espana PA-C, 5 mg at 10/30/24822 atorvastatin (LIPITOR) tablet 40 mg, 40 mg, Oral, QPM, Zee Espana PA- C, 40 mg at 8 benzonatate (TESSALON) capsule 100 mg, 100 mg, Oral, TID PRN, Zee Espana PA-C cholecalciferol (VITAMIN D3) capsule 125 mcg, 125 mcg, Oral, Daily, Zee Espana PA-C, 125 mcg at 10/30/24823 glucose gel 15-30 g, 15-30 g, Oral, Q15 Min PRN OR dextrose 50 % injection 25-50 mL, 25-50 mL, Intravenous, Q15 Min PRN OR glucagon injection 1 mg, 1 mg, Subcutaneous, Q15 Min PRN, Zee Espana PA-C diclofenac (VOLTAREN) 1 % topical gel 2 g, 2 g, Topical, 4x Daily, Zee Espana PA-C, 2 g at 10/30/24823 ezetimibe (ZETIA) tablet 10 mg, 10 mg, Oral, QPM, Zee Espana PA-C, 10 mg at 10/29/242027 guaiFENesin (MUCINEX) 12 hr tablet 600 mg, 600 mg, Oral, BID, Zee Espana PA-C, 600 mg at 10/30/24823 insulin aspart (NovoLOG) injection (RAPID ACTING), 1-7 Units, Subcutaneous, BID, Alba Gasca PA insulin aspart (NovoLOG) injection (RAPID ACTING), 1-10 Units, Subcutaneous, TID AC, Zee Espana PA-C, 8 Units at 10/30/24 1107 insulin aspart (NovoLOG) injection (RAPID ACTING), , Subcutaneous, TID w/meals, Alba Gasca PA, 6 Units at 10/30/24 0829 insulin aspart (NovoLOG) injection (RAPID ACTING), , Subcutaneous, With Snacks or Supplements, Alba Gasca PA insulin glargine (LANTUS PEN) injection 30 Units, 30 Units, Subcutaneous, At Bedtime, Zee Espana PA-C, 30 Units at 10/29/24 2154 lamoTRIgine (LaMICtal) tablet 300 mg, 300 mg, Oral, BID, Zee Espana PA-C, 300 mg at 10/30/24 0823 Lidocaine (LIDOCARE) 4 % Patch 2 patch, 2 patch, Transdermal, Q24H, Zee Espana PA-C, 2 patch at 10/30/24 08 lisinopril (ZESTRIL) tablet 30 mg, 30 mg, Oral, Daily, Zee Espana PA- C, 30 mg at 823 magnesium oxide (MAG-OX) tablet 400 mg, 400 mg, Oral, Daily, Zee Espana PA-C, 400 mg at 10/30/2424 melatonin tablet 3 mg, 3 mg, Oral, At Bedtime PRN, Zee Espana PA-C metFORMIN (GLUCOPHAGE) tablet 500 mg, 500 mg, Oral, Daily with supper, Zee Espana PA-C, 500 mg at 10/29/24 180 metoprolol succinate ER (TOPROL XL) 24 hr tablet 50 mg, 50 mg, Oral, BID, Zee Espana PA-C, 50 mg at 10/30/24823 miconazole (MICATIN) 2 % powder, , Topical, BID, Zee Espana PA-C, Given at 10/30/24823 multivitamin w/minerals (THERA-VIT-M) tablet 1 tablet, 1 tablet, Oral, Daily, Zee Espana PA-C, 1 tablet at 10/30/2424 naloxone (NARCAN) injection 0.2 mg, 0.2 mg, Intravenous, Q2 Min PRN OR naloxone (NARCAN) injection 0.4 mg, 0.4 mg, Intravenous, Q2 Min PRN OR naloxone (NARCAN) injection 0.2 mg, 0.2 mg, Intramuscular, Q2 Min PRN OR naloxone (NARCAN) injection 0.4 mg, 0.4 mg, Intramuscular, Q2 Min PRN, Finn Monroe DO oxyCODONE (ROXICODONE) tablet 5 mg, 5 mg, Oral, BID PRN, Zee Espana PA-C, 5 mg at 10/30/24 0251 Patient is already receiving anticoagulation with heparin, enoxaparin (LOVENOX), warfarin (COUMADIN) or other anticoagulant medication, , Does not apply, Continuous PRN, Zee Espana PA-C psyllium (METAMUCIL/KONSYL) capsule 5 capsule, 5 capsule, Oral, Daily, Zee Espana PA-C, 5capsule at 10/30/24 0823 senna-docusate (SENOKOT-S/PERICOLACE) 8.6-50 MG per tablet 1 tablet, 1 tablet, Oral, BID PRN, Zee Espana PA-C tiZANidine (ZANAFLEX) tablet 2-4 mg, 2-4 mg, Oral, Q8H PRN, Zee Espana PA-C No current outpatient prescriptions on file. 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 Finn Monroe, DO * Plan of Care - Ivonne Vences OTR - 10/30/2024 12:29 PM CDT Food Stylist Post-Acute Rehab OT: Discharge Plan: Home with assist, OP OT hand therapy? Pending progress Precautions: Falls, L weakness/tremors/slight inattention, monitor BG (pt has access to tracking onphone) Current Status: ADLs: Mobility: CGA-Min A with 2ww Grooming: TBD Dressing: SBA socks/shoes, Min A UB Bathing: TBD Toileting: CGA transfer with grab bars IADLs: Pt was completely ind with IADLs at baseline. Vision/Cognition: Pt impulsive at times, vision and cognition seems unchanged from baseline per pt report. Assessment: 63 y/o male with hx of brain astrocytoma s/p resection (1998), who presented to ED after a fall. Pt was found to have acute hypoxic failure requiring 2-5 LPM via NC during hospitalization, PNA with R loculated PE, and acute ischemic stroke of R frontal lobe. Pt presents to ARU with diminished L UE coordination, balance, and endurance limiting ability to perform ADL/IADL tasks. Pt willbenefit from ~10 days of skilled therapy in ARU setting with goals to return home at Mod I level and reduce risk of falls. Other Barriers to Discharge (DME, Family Training, etc): Grab bars in shower/near toilet, assist levels available at home - will likely need family training. * Plan of Care - Ailyn Goznalez RN - 10/30/2024 8:12 AM CDT Goal Outcome Evaluation: Plan of Care Reviewed With: patient Overall Patient Progress: no change Patient is alert and oriented. Initially requested for PRN muscle relaxer and cough med but was unavailable at time of request, pending supply be sent over by Main Pharmacy. Patient informed about itand was then given with PRN oxycodone per request for back pain instead with good effect. Also noted that patient took scheduled Mucinex from evening shift. Agreeable not to be woken up if already sleeping if those PRN meds become available. These meds placed in med cabinet as patient did not call back for it. Voiding using bedside urinal but had some spillage in brief once. PVR was 32. Patient aware of 2L fluid restrictions. Wore CPAP overnight. VSS. BG 326 at bedtime hence intentionally checked at 0200 AM to monitor. BG at 2AM was 289. Patient reported BG this AM was high again per Dexcom. Hospital BG machine used to check and result was 337 but asymptomatic. Did not eat anything overnight. Provider notified at 0630 AM about it, called back and has talked to CN. aware of elevated BG,no orders received, provider will put in endocrinology consult. Fall precautions maintained, call light in reach, safety checks completed. Continue with POC. * Plan of Care - Prema Turcios RN - 10/29/2024 6:38 PM CDT Goal Outcome Evaluation: Pt is alert and oriented x 4 , c/o Rt upper back /old chest tube site prn Tylenol. On regular diet,thin liquids and takes pills whole .Pt is on 2000 ml fluid restriction. On BG qid and at bedtime,sliding scale insulin and carb coverage. Assist of x 1 walker and GB.Continent of Bladder and BM , LBM3/11 per report. Uses urinal at bedside. Call light within reach and safety /seizure precautions inplace.will continue to monitor. * Pharmacy-Admission Medication History - Ian Stratton RPH - 10/29/2024 2:48 PM CDT Admission medication history completed at [facility]. Please see Pharmacist Admission Medication History note from 10/12/2024. documented in this encounter Plan of Treatment Upcoming Encounters Date Type Department Care Team (Late st Contact Info) Description 12/17/2024 9:30 AM CDT Lab [facility] [address] [place] [phone] 12/23/2024 4:00 PM CDT Office Visit [facility] [address] [place] [phone] Cyrus Aleman MD [address] [place] [id number] 01/27/2025 10:00 AM CDT Office Visit [facility] [address] [place] [address] [address] [place] [phone] Anel Long, INFORMIX DEVELOPER [address] [place], [place] [phone] Coni Dhaliwal, EIGHT ARM OPERATOR [address] [facility] [address] [place], [place] [address] 04/14/2025 11:15 AM CDT Office Visit [facility] [address] [facility] [address] [place] [phone] Inessa Esteves, [address] [place], [place] [phone] 06/05/2025 12:30 PM CDT Office Visit [facility] [address] [phone] Stephie Mahoney MD [address] [place] [address] [address] [place] [address] 11/13/2025 11:00 AM CDT Virtual Visit [facility] [address] [place] [phone] Stephie Mahoney MD [address] [facility] [address] [place] [address] Scheduled Referrals Name Type Priority Associated Diagnoses Orde r Schedule Home Care Referral Referral Routine: Next available opening 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 of right middle cerebral artery (H) Ordered: 11/04/2024 Adult Pulmonary Medicine Straw Hat Washer Operator Referral Referral Routine: Next available opening 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 of right middle cerebral artery (H) Expected: 11/04/2024 (Approximate), Expires: 11/04/2025 documented as of this encounter Procedures Procedure Name Priority Date/Time Associated Diagnosis Comments GLUCOSE BY METER Routine 11/04/2024 7:23 AM CDT EXTRA TUBE Routine 11/04/2024 5:48 AM CDT EXTRA PURPLE TOP TUBE Routine 11/04/2024 5:48 AM CDT BASIC [...] CDT MAGNESIUM Routine 11/03/2024 7:40 AM CDT BASIC METABOLIC PANEL Routine 11/03/2024 7:40 AM CDT CBC WITH PLATELETS Routine 11/03/2024 7: 40 AM CDT GLUCOSE BY METER Routine 11/03/2024 [...] PM CDT GLUCOSE BY METER Routine 11/01/2024 5:44 PM CDT GLUCOSE BY METER Routine 11/01/2024 [...] METER Routine 10/31/2024 7:35 AM CDT EXTRA TUBE Routine 10/31/2024 6:13 AM CDT EXTRA PURPLE TOP TUBE Routine 10/31/2024 6:13 AM CDT BASIC METABOLIC PANEL Routine 10/31/2024 6:13 AM CDT GLUCOSE BY METER Routine 10/31/2024 5:59 AM CDT GLUCOSE BY METER Routine 10/31/2024 2:21 AM CDT GLUCOSE BY METER Routine 10/30/2024 10:0 5 PM CDT GLUCOSE BY METER Routine 10/30/2024 5:11 PM CDT GLUCOSE BY METER Routine 10/30/2024 11:3 0 AM CDT SODIUM RANDOM URINE Routine 10/30/2024 1 1:29 AM CDT OSMOLALITY, RANDOM URINE Routine 10/30/2024 11:29 AM CDT GLUCOSE BY METER Routine 10/30/2024 11:0 4 AM CDT GLUCOSE BY METER Routine 10/30/2024 7:57 AM CDT GLUCOSE BY METER Routine 10/30/2024 7:15 AM CDT OSMOLALITY Routine 10/30/2024 6:19 AM CDT MAGNESIUM Routine 10/30/2024 6:19 AM CDT BASIC METABOLIC PANEL Routine 10/30/2024 6:19 AM CDT CBC WITH PLATELETS Routine 10/30/2024 6: 19 AM CDT GLUCOSE BY METER Routine 10/30/2024 6:12 AM CDT GLUCOSE BY METER Routine 10/30/2024 2:27 AM CDT GLUCOSE BY METER Routine 10/29/2024 9:51 PM CDT GLUCOSE BY METER Routine 10/29/2024 4:41 PM CDT documented in this encounter Results * (ABNORMAL) Glucose by meter (11/04/2024 7:23 AM CDT) GLUCOSE BY METER POCT 162(H) 70 - 99 mg/dL 11/04/2024 7:30 AM CDT UR LABORATORY POC Blood, Capillary BLOOD SPECIMEN / Unknown 11/04/2024 7:23 AM CDT 11/04/2024 7:30 AM CDT us Finn Monroe DO LAB - BEAKER POCT Final Re sult UR LABORATORY POC [facility] [address] [place] [address], [address] * Extra Purple Top Tube (11/04/2024 5:48 AM CDT) Hold Specimen JIC 11/04/2024 7:31 AM CDT UR LABORATORY Blood STRUCTURE OF RIGHT UPPER LIMB / Unknown Venipuncture / Unknown 11/04/2024 5:48 AM CDT 11/04/2024 6:22 AM CDT us Finn Monroe DO LAB - BLOOD ORDERABLES Fin al Result UR LABORATORY [facility] [address] [place] [address], [address] * (ABNORMAL) Basic metabolic panel (11/04/2024 5:48 AM CDT) Sodium 125(L) 135 - 145 mmol/L 11/04/2024 6:40 AM CDT UR LABORATORY Potassium 4.0 3.4 - 5.3 mmol/L 11/04/2024 6:40 AM CDT UR LABORATORY Chloride 88(L) 98 - 107 mmol/L 11/04/2024 6:40 AM CDT UR LABORATORY Carbon Dioxide (CO2) 28 22 - 29 mmol/L 11/04/2024 6:40 AM CDT UR LABORATORY Anion Gap 9 7 - 15 mmol/L 11/04/2024 6:40 AM CDT UR LABORATORY Urea Nitrogen 15.8 8.0 - 23.0 mg/dL 11/04/2024 6:40 AM CDT UR LABORATORY Creatinine 0.85 0.67 - 1.17 mg/dL 11/04/2024 6:40 AM CDT UR LABORATORY GFR Estimate >90 >60 mL/min/1.7 3m2 11/04/2024 6:40 AM CDT UR LABORATORY Comment:eGFR calculated usin 2020 CKD-EPI equation. Calcium 8.4(L) 8.8 - 10.4 mg/dL 11/04/2024 6:40 AM CDT UR LABORATORY Glucose 242(H) 70 - 99 mg/dL 11/04/2024 6:40 AM CDT UR LABORATORY Blood STRUCTURE OF RIGHT UPPER LIMB / Unknown Venipuncture / Unknown 11/04/2024 5:48 AM CDT 11/04/2024 6:17 AM CDT us Reji To DO LAB - BLOOD ORDERABLES Final Res ult UR LABORATORY [facility] [address] [facility], [address] [place] [address], [facility] * (ABNORMAL) Glucose by meter (11/04/2024 5:11 AM CDT) GLUCOSE BY METER POCT 297(H) 70 - 99 mg/dL 11/04/2024 5:18 AM CDT UR LABORATORY POC Blood, Capillary BLOOD SPECIMEN / Unknown 11/04/2024 5:11 AM CDT 11/04/2024 5:18 AM CDT Finn Monroe DO LAB - BEAKER POCT Final Re sult UR LABORATORY POC [facility] [address] [facility], Room [address] [phone], [facility] * (ABNORMAL) Glucose by meter (11/04/2024 2:05 AM CDT) GLUCOSE BY METER POCT 319(H) 70 - 99 mg/dL 11/04/2024 2:13 AM CDT UR LABORATORY POC Blood, Capillary BLOOD SPECIMEN / Unknown 11/04/2024 2:05 AM CDT 11/04/2024 2:13 AM CDT Finn Monroe DO LAB - BEREJI POCT Final Re sult Performing Organization Address City/[facility]/ZIP Co de Phone Number UR LABORATORY POC [facility] [address] [place] [address], [address] [phone], [facility] * (ABNORMAL) Glucose by meter (11/03/2024 9:03 PM CDT) GLUCOSE BY METER POCT 269(H) 70 - 99 mg/dL 11/03/2024 9:10 PM CDT UR LABORATORY POC Blood, arterial BLOOD SPECIMEN / Unknown 11/03/2024 9:03 PM CDT 11/03/2024 9:10 PM CDT Finn Monroe DO LAB - BEREJI POCT Final Re sult UR LABORATORY POC [facility] [address] [place] [address], [address] [phone], [facility] * (ABNORMAL) Glucose by meter (11/03/2024 5:10 PM CDT) GLUCOSE BY METER POCT 160(H) 70 - 99 mg/dL 11/03/2024 5:17 PM CDT UR LABORATORY POC Blood, arterial BLOOD SPECIMEN / Unknown 11/03/2024 5:10 PM CDT 11/03/2024 5:17 PM CDT Finn Monroe DO LAB - BEAKER POCT Final Re sult UR LABORATORY POC [facility] [address] [place] [address], [address] [phone], [facility] * (ABNORMAL) Glucose by meter (11/03/2024 12:05 PM CDT) GLUCOSE BY METER POCT 138(H) 70 - 99 mg/dL 11/03/2024 12:12 PM CDT UR LABORATORY POC Blood, Capillary BLOOD SPECIMEN / Unknown 11/03/2024 12:05 PM CDT 11/03/2024 12:12 PM CDT Fnin Monroe DO LAB - BEAKER POCT Final Re sult Performing Organization Address City/[facility]/ZIP Co de Phone Number UR LABORATORY POC [facility] [address] [place] [address], [address] [phone], [facility] * (ABNORMAL) Glucose by meter (11/03/2024 7:44 AM CDT) GLUCOSE BY METER POCT 153(H) 70 - 99 mg/dL 11/03/2024 7:52 AM CDT UR LABORATORY POC Blood, Capillary BLOOD SPECIMEN / Unknown 11/03/2024 7:44 AM CDT 11/03/2024 7:52 AM CDT Finn Monroe DO LAB - BEAKER POCT Final Re sult UR LABORATORY POC [facility] [address] [place] [address], [address] [phone] * Magnesium (11/03/2024 7:40 AM CDT) Magnesium 1.7 1.7 - 2.3 mg/dL 11/03/2024 8:55 AM CDT UR LABORATORY Blood STRUCTURE OF LEFT HAND / Unknown Venipuncture / Unknown 11/03/2024 7:40 AM CDT 11/03/2024 8:15 AM CDT Zee Espana PA-C LAB - BLOOD ORDERABLES F inal Result UR LABORATORY [facility] [address] [facility], [address] * (ABNORMAL) CBC with platelets (11/03/2024 7:40 AM CDT) WBC Count 3.9(L) 4.0 - 11.0 10e3/uL [...] 7:40 AM CDT 11/03/2024 8:15 AM CDT us Zee Espana PA-C LAB - BLOOD ORDERABLES F inal Result UR LABORATORY [facility] [address] [facility], [address] [phone] * (ABNORMAL) Basic metabolic panel (11/03/2024 7:40 AM CDT) Sodium 125(L) 135 - 145 mmol/L 11/03/2024 8:55 AM CDT UR LABORATORY Potassium 3.9 3.4 - 5.3 mmol/L 11/03/2024 8:55 AM CDT UR LABORATORY Chloride 88(L) 98 - 107 mmol/L 11/03/2024 8:55 AM CDT UR LABORATORY Carbon Dioxide (CO2) 24 22 - 29 mmol/L 11/03/2024 8:55 AM CDT UR LABORATORY Anion Gap 13 7 - 15 mmol/L 11/03/2024 8:55 AM CDT UR LABORATORY Urea Nitrogen 15.6 8.0 - 23.0 mg/dL 11/03/2024 8:55 AM CDT UR LABORATORY Creatinine 0.82 0.67 - 1.17 mg/dL 11/03/2024 8:55 AM CDT UR LABORATORY GFR Estimate >90 >60 mL/min/1.7 3m2 11/03/2024 8:55 AM CDT UR LABORATORY Comment:eGFR calculated usin 2020 CKD-EPI equation. Calcium 8.7(L) 8.8 - 10.4 mg/dL 11/03/2024 8:55 AM CDT UR LABORATORY Glucose 165(H) 70 - 99 mg/dL 11/03/2024 8:55 AM CDT UR LABORATORY Blood STRUCTURE OF LEFT HAND / Unknown Venipuncture / Unknown 11/03/2024 7:40 AM CDT 11/03/2024 8:15 AM CDT us Zee Espana PA-C LAB - BLOOD ORDERABLES F inal Result UR LABORATORY [facility] [address] [place] [address], [address] [phone] * (ABNORMAL) Glucose by meter (11/03/2024 5:36 AM CDT) GLUCOSE BY METER POCT 133(H) 70 - 99 mg/dL 11/03/2024 5:42 AM CDT UR LABORATORY POC Blood, Capillary BLOOD SPECIMEN / Unknown 11/03/2024 5:36 AM CDT 11/03/2024 5:42 AM CDT Finn Monroe DO LAB - BEAKER POCT Final Re sult UR LABORATORY POC [facility] [address] [place] [address], [address] [phone] * (ABNORMAL) Glucose by meter (11/03/2024 1:58 AM CDT) GLUCOSE BY METER POCT 145(H) 70 - 99 mg/dL 11/03/2024 2:05 AM CDT UR LABORATORY POC Blood, Capillary BLOOD SPECIMEN / Unknown 11/03/2024 1:58 AM CDT 11/03/2024 2:05 AM CDT Finn Monroe DO LAB - BEAKER POCT Final Re sult UR LABORATORY POC [facility] [address] [place] [address], [address] [phone] * (ABNORMAL) Glucose by meter (11/02/2024 8:59 PM CDT) GLUCOSE BY METER POCT 119(H) 70 - 99 mg/dL 11/02/2024 9:06 PM CDT UR LABORATORY POC Blood, Capillary BLOOD SPECIMEN / Unknown 11/02/2024 8:59 PM CDT 11/02/2024 9:06 PM CDT Finn Mckenzie Spencertea LAB - BEAKER POCT Final Re sult UR LABORATORY POC [facility] [address] [place] [address], [address] [phone], [facility] * (ABNORMAL) Glucose by meter (11/02/2024 5:06 PM CDT) GLUCOSE BY METER POCT 160(H) 70 - 99 mg/dL 11/02/2024 5:12 PM CDT UR LABORATORY POC Blood, Capillary BLOOD SPECIMEN / Unknown 11/02/2024 5:06 PM CDT 11/02/2024 5:12 PM CDT Finn Mckenzie Fer REYNOSO LAB - BEREJI POCT Final Re sult Performing Organization Address City/[facility]/ZIP Co de Phone Number UR LABORATORY POC [facility] [address] [place] [address], [address] [phone], [facility] * (ABNORMAL) Glucose by meter (11/02/2024 12:16 PM CDT) GLUCOSE BY METER POCT 141(H) 70 - 99 mg/dL 11/02/2024 12:23 PM CDT UR LABORATORY POC Blood, Capillary BLOOD SPECIMEN / Unknown 11/02/2024 12:16 PM CDT 11/02/2024 12:23 PM CDT Finn Mckenzie Spencertea LAB - BEAKER POCT Final Re sult UR LABORATORY POC [facility] [address] [place] [address], [address] [phone], [facility] * (ABNORMAL) Glucose by meter (11/02/2024 7:26 AM CDT) GLUCOSE BY METER POCT 130(H) 70 - 99 mg/dL 11/02/2024 7:32 AM CDT UR LABORATORY POC Blood, Capillary BLOOD SPECIMEN / Unknown 11/02/2024 7:26 AM CDT 11/02/2024 7:32 AM CDT Finn Monroe DO LAB - BEREJI POCT Final Re sult UR LABORATORY POC [facility] [address] [place] [address], Room [place] [phone], [facility] * (ABNORMAL) Glucose by meter (11/02/2024 5:53 AM CDT) GLUCOSE BY METER POCT 127(H) 70 - 99 mg/dL 11/02/2024 6:00 AM CDT UR LABORATORY POC Blood, Capillary BLOOD SPECIMEN / Unknown 11/02/2024 5:53 AM CDT 11/02/2024 6:00 AM CDT Finn Monroe DO LAB - BEREJI POCT Final Re sult Performing Organization Address City/[facility]/ZIP Co de Phone Number UR LABORATORY POC [facility] [address] [place] [address], Room [place] [phone], [facility] * (ABNORMAL) Glucose by meter (11/02/2024 2:08 AM CDT) GLUCOSE BY METER POCT 164(H) 70 - 99 mg/dL 11/02/2024 2:15 AM CDT UR LABORATORY POC Blood, Capillary BLOOD SPECIMEN / Unknown 11/02/2024 2:08 AM CDT 11/02/2024 2:15 AM CDT Finn Monroe DO LAB - BEREJI POCT Final Re sult UR LABORATORY POC [facility] [address] [place] [address], [address] [phone], [facility] * (ABNORMAL) Glucose by meter (11/01/2024 9:54 PM CDT) GLUCOSE BY METER POCT 149(H) 70 - 99 mg/dL 11/01/2024 10:01 PM CDT UR LABORATORY POC Blood, Capillary BLOOD SPECIMEN / Unknown 11/01/2024 9:54 PM CDT 11/01/2024 10:01 PM CDT Finn Monroe DO LAB - BEAKER POCT Final Re sult UR LABORATORY POC [facility] [address] [place] [address], Room [place] [phone], [facility] * (ABNORMAL) Glucose by meter (11/01/2024 5:44 PM CDT) GLUCOSE BY METER POCT 123(H) 70 - 99 mg/dL 11/01/2024 5:51 PM CDT UR LABORATORY POC Blood, Capillary BLOOD SPECIMEN / Unknown 11/01/2024 5:44 PM CDT 11/01/2024 5:51 PM CDT Finn Monroe DO LAB - BEAKER POCT Final Re sult Performing Organization Address [facility]/ZIP Co de Phone Number UR LABORATORY POC [facility] [address] [place] [address], [address] [phone], [facility] * (ABNORMAL) Glucose by meter (11/01/2024 11:16 AM CDT) GLUCOSE BY METER POCT 156(H) 70 - 99 mg/dL 11/01/2024 11:26 AM CDT UR LABORATORY POC Blood, Capillary BLOOD SPECIMEN / Unknown 11/01/2024 11:16 AM CDT 11/01/2024 11:26 AM CDT Finn Monroe DO LAB - BEREJI POCT Final Re sult UR LABORATORY POC [facility] [address] [place] [address], Room [place] [phone] * (ABNORMAL) Glucose by meter (11/01/2024 8:00 AM CDT) GLUCOSE BY METER POCT 144(H) 70 - 99 mg/dL 11/01/2024 8:07 AM CDT UR LABORATORY POC Blood, Capillary BLOOD SPECIMEN / Unknown 11/01/2024 8:00 AM CDT 11/01/2024 8:07 AM CDT Finn Monroe DO LAB - BEAKER POCT Final Re sult UR LABORATORY POC [facility] [address] [place] [address], Room [place] [phone] * (ABNORMAL) Glucose by meter (11/01/2024 6:23 AM CDT) GLUCOSE BY METER POCT 136(H) 70 - 99 mg/dL 11/01/2024 6:30 AM CDT UR LABORATORY POC Blood, Capillary BLOOD SPECIMEN / Unknown 11/01/2024 6:23 AM CDT 11/01/2024 6:30 AM CDT Finn Monroe DO LAB - BEREJI POCT Final Re sult UR LABORATORY POC [facility] [facility] [address] [place] [address], [place] [phone] * (ABNORMAL) Glucose by meter (11/01/2024 2:05 AM CDT) GLUCOSE BY METER POCT 201(H) 70 - 99 mg/dL 11/01/2024 2:11 AM CDT UR LABORATORY POC Blood, Capillary BLOOD SPECIMEN / Unknown 11/01/2024 2:05 AM CDT 11/01/2024 2:11 AM CDT Finn Monroe DO LAB - BEAKER POCT Final Re sult UR LABORATORY POC [facility] [address] [place] [address], Room [place] [phone] * (ABNORMAL) Glucose by meter (10/31/2024 9:59 PM CDT) GLUCOSE BY METER POCT 124(H) 70 - 99 mg/dL 10/31/2024 10:06 PM CDT UR LABORATORY POC Blood, Capillary BLOOD SPECIMEN / Unknown 10/31/2024 9:59 PM CDT 10/31/2024 10:06 PM CDT Finn Spencernigelrisa REYNOSO LAB - BEREJI POCT Final Re sult Performing Organization Address City/[facility]/ZIP Co de Phone Number UR LABORATORY POC [facility] [address] [place] [address], Room [place] [phone] * (ABNORMAL) Glucose by meter (10/31/2024 5:09 PM CDT) GLUCOSE BY METER POCT 231(H) 70 - 99 mg/dL 10/31/2024 5:16 PM CDT UR LABORATORY POC Blood, Capillary BLOOD SPECIMEN / Unknown 10/31/2024 5:09 PM CDT 10/31/2024 5:16 PM CDT Finn Monroe DO LAB - BEAKER POCT Final Re sult UR LABORATORY POC [facility] [address] [place] [address], Room [address] [phone] * (ABNORMAL) Glucose by meter (10/31/2024 11:52 AM CDT) GLUCOSE BY METER POCT 224(H) 70 - 99 mg/dL 10/31/2024 11:59 AM CDT UR LABORATORY POC Comment:Dr/RN Notified Blood, Capillary BLOOD SPECIMEN / Unknown 10/31/2024 11:52 AM CDT 10/31/2024 11:59 AM CDT Finn Monroe DO LAB - BEAKER POCT Final Re sult UR LABORATORY POC [facility] [address] [facility], Room [place] [phone] * (ABNORMAL) Glucose by meter (10/31/2024 7:35 AM CDT) GLUCOSE BY METER POCT 192(H) 70 - 99 mg/dL 10/31/2024 7:45 AM CDT UR LABORATORY POC Blood, Capillary BLOOD SPECIMEN / Unknown 10/31/2024 7:35 AM CDT 10/31/2024 7:45 AM CDT Finn Monroe DO LAB - BEAKER POCT Final Re sult UR LABORATORY POC [facility] [address] [place] [address], Room [address] [phone] * Extra Purple Top Tube (10/31/2024 6:13 AM CDT) Hold Specimen JIC 10/31/2024 8:31 AM CDT UR LABORATORY Blood STRUCTURE OF RIGHT UPPER LIMB / Unknown Venipuncture / Unknown 10/31/2024 6:13 AM CDT 10/31/2024 7:24 AM CDT Finn Monroe DO LAB - BLOOD ORDERABLES Fin al Result UR LABORATORY [facility], Room [address] [phone] * (ABNORMAL) Basic metabolic panel (10/31/2024 6:13 AM CDT) Sodium 129(L) 135 - 145 mmol/L 10/31/2024 6:48 AM CDT UR LABORATORY Potassium 4.1 3.4 - 5.3 mmol/L 10/31/2024 6:48 AM CDT UR LABORATORY Chloride 92(L) 98 - 107 mmol/L 10/31/2024 6:48 AM CDT UR LABORATORY Carbon Dioxide (CO2) 28 22 - 29 mmol/L 10/31/2024 6:48 AM CDT UR LABORATORY Anion Gap 9 7 - 15 mmol/L 10/31/2024 6:48 AM CDT UR LABORATORY Urea Nitrogen 14.1 8.0 - 23.0 mg/dL 10/31/2024 6:48 AM CDT UR LABORATORY Creatinine 0.79 0.67 - 1.17 mg/dL 10/31/2024 6:48 AM CDT UR LABORATORY GFR Estimate >90 >60 mL/min/1.7 3m2 10/31/2024 6:48 AM CDT UR LABORATORY Comment:eGFR calculated usin 2020 CKD-EPI equation. Calcium 8.7(L) 8.8 - 10.4 mg/dL 10/31/2024 6:48 AM CDT UR LABORATORY Glucose 159(H) 70 - 99 mg/dL 10/31/2024 6:48 AM CDT UR LABORATORY Blood STRUCTURE OF RIGHT UPPER LIMB / Unknown Venipuncture / Unknown 10/31/2024 6:13 AM CDT 10/31/2024 6:26 AM CDT us Reji To DO LAB - BLOOD ORDERABLES Final Res ult UR LABORATORY [facility] [address] [facility], [address] [place] [address], [facility] * (ABNORMAL) Glucose by meter (10/31/2024 5:59 AM CDT) GLUCOSE BY METER POCT 128(H) 70 - 99 mg/dL 10/31/2024 6:06 AM CDT UR LABORATORY POC Blood, Capillary BLOOD SPECIMEN / Unknown 10/31/2024 5:59 AM CDT 10/31/2024 6:06 AM CDT Finn Spencernigelrisa REYNOSO LAB - BEAKER POCT Final Re sult UR LABORATORY POC [facility] [address] [facility], Room [address] [phone], [facility] * (ABNORMAL) Glucose by meter (10/31/2024 2:21 AM CDT) GLUCOSE BY METER POCT 125(H) 70 - 99 mg/dL 10/31/2024 2:28 AM CDT UR LABORATORY POC Blood, Capillary BLOOD SPECIMEN / Unknown 10/31/2024 2:21 AM CDT 10/31/2024 2:28 AM CDT Finn Mckenzie Spencertea [facility] LAB - BEREJI POCT Final Re sult Performing Organization Address City/[facility]/ZIP Co de Phone Number UR LABORATORY POC [facility] [address] [place] [address], Room [address] [phone], [facility] * (ABNORMAL) Glucose by meter (10/30/2024 10:05 PM CDT) GLUCOSE BY METER POCT 147(H) 70 - 99 mg/dL 10/30/2024 10:12 PM CDT UR LABORATORY POC Blood, Capillary BLOOD SPECIMEN / Unknown 10/30/2024 10:05 PM CDT 10/30/2024 10:12 PM CDT Finn Mckenzie Spencertea LAB - BEAKER POCT Final Re sult UR LABORATORY POC [facility] [address] [place] [address], Room [address] [phone], [facility] * (ABNORMAL) Glucose by meter (10/30/2024 5:11 PM CDT) GLUCOSE BY METER POCT 168(H) 70 - 99 mg/dL 10/30/2024 5:17 PM CDT UR LABORATORY POC Blood, Capillary BLOOD SPECIMEN / Unknown 10/30/2024 5:11 PM CDT 10/30/2024 5:17 PM CDT Finn Spencernigelrias REYNOSO LAB - BEAKER POCT Final Re sult UR LABORATORY POC [facility] [address] [place] [address], [place] [phone] [place] [address] * (ABNORMAL) Glucose by meter (10/30/2024 11:30 AM CDT) GLUCOSE BY METER POCT 366(H) 70 - 99 mg/dL 10/30/2024 11:37 AM CDT UR LABORATORY POC Blood, Capillary BLOOD SPECIMEN / Unknown 10/30/2024 11:30 AM CDT 10/30/2024 11:37 AM CDT Finn Spencertea DO LAB - BEAKER POCT Final Re sult Performing Organization Address City/[facility]/ZIP Co de Phone Number UR LABORATORY POC [facility] [address] [place] [address], Room [address] * Osmolality urine (10/30/2024 11:29 AM CDT) Osmolality Urine 735 100 - 1,200 mmol/kg [...] 3.0-4.7 after 12 hour fluid restriction us Mendoza To DO LAB - URINE ORDERABLES Final Res ult UR LABORATORY [facility] [address] [facility], Room [place] [phone] * Sodium random urine (10/30/2024 11:29 AM CDT) Sodium Urine mmol/L <20 mmol/L 10/30/2024 12:16 [...] ORDERABLES Final Res ult Performing Organization Address City/[facility]/ZIP Co de Phone Number UR LABORATORY [facility] [address] [place] [address], Room [address] [phone] * (ABNORMAL) Glucose by meter (10/30/2024 11:04 AM CDT) GLUCOSE BY METER POCT 356(H) 70 - 99 mg/dL 10/30/2024 11:10 AM CDT UR LABORATORY POC Blood, Capillary BLOOD SPECIMEN / Unknown 10/30/2024 11:04 AM CDT 10/30/2024 11:10 AM CDT us Finn Monroe DO LAB - BEAKER POCT Final Re sult UR LABORATORY POC [facility] [address] [place] [address], Room [address] [phone] * (ABNORMAL) Glucose by meter (10/30/2024 7:57 AM CDT) GLUCOSE BY METER POCT 337(H) 70 - 99 mg/dL 10/30/2024 8:04 AM CDT UR LABORATORY POC Blood, Capillary BLOOD SPECIMEN / Unknown 10/30/2024 7:57 AM CDT 10/30/2024 8:04 AM CDT us Finn Spencertea DO LAB - BEAKER POCT Final Re sult Performing Organization Address City/[facility]/ZIP Co de Phone Number UR LABORATORY POC [facility] [address] [place] [address], Room [address] * (ABNORMAL) Glucose by meter (10/30/2024 7:15 AM CDT) GLUCOSE BY METER POCT 360(H) 70 - 99 mg/dL 10/30/2024 7:22 AM CDT UR LABORATORY POC Blood, Capillary BLOOD SPECIMEN / Unknown 10/30/2024 7:15 AM CDT 10/30/2024 7:22 AM CDT us Finn Rincon Fer DO LAB - BEAKER POCT Final Re sult Performing Organization Address City/[facility] Co de Phone Number UR LABORATORY POC [facility] [address] [place] [address], Room [address] * (ABNORMAL) Osmolality (10/30/2024 6:19 AM CDT) Osmolality Blood 273(L) 280 - 301 mmol/kg [...] methanol, isopropanol, mannitol, ethylene glycol). us Reji To DO LAB - BLOOD ORDERABLES Final Res ult UR LABORATORY [facility], [address] [place] [phone] [place] [address] * Magnesium (10/30/2024 6:19 AM CDT) Magnesium 1.9 1.7 - 2.3 mg/dL 10/30/2024 7:17 AM CDT UR LABORATORY Blood STRUCTURE OF RIGHT UPPER LIMB / Unknown Venipuncture / Unknown 10/30/2024 6:19 AM CDT 10/30/2024 6:45 AM CDT Zee Espana PA-C LAB - BLOOD ORDERABLES F inal Result Performing Organization Address City/[facility]/ZIP Co de Phone Number UR LABORATORY [facility], Room [place] [phone] [place] [address] * (ABNORMAL) CBC with platelets (10/30/2024 6:19 AM CDT) WBC Count 8.3 4.0 - 11.0 10e3/uL 10/30/2024 6:49 AM CDT UR LABORATORY RBC Count 3.76(L) 4.40 - 5.90 10e6/uL 10/30/2024 6:49 AM CDT UR LABORATORY Hemoglobin 11.4(L) 13.3 - 17.7 g/dL 10/30/2024 6:49 AM CDT UR LABORATORY Hematocrit 32.9(L) 40.0 - 53.0 % 10/30/2024 6:49 AM CDT UR LABORATORY MCV 88 78 - 100 fL 10/30/2024 6:49 AM CDT UR LABORATORY MCH 30.3 26.5 - 33.0 pg 10/30/2024 6:49 AM CDT UR LABORATORY MCHC 34.7 31.5 - 36.5 g/dL 10/30/2024 6:49 AM CDT UR LABORATORY RDW 11.9 10.0 - 15.0 % 10/30/2024 6:49 AM CDT UR LABORATORY Platelet Count 429 150 - 450 10e3/uL 10/30/2024 6:49 AM CDT UR LABORATORY Blood STRUCTURE OF RIGHT UPPER LIMB / Unknown Venipuncture / Unknown 10/30/2024 6:19 AM CDT 10/30/2024 6:44 AM CDT Zee Espana PA-C LAB - BLOOD ORDERABLES F inal Result UR LABORATORY [facility] [address] [facility], [address] [place] [address], [facility] * (ABNORMAL) Basic metabolic panel (10/30/2024 6:19 AM CDT) Sodium 126(L) 135 - 145 mmol/L 10/30/2024 7:17 AM CDT UR LABORATORY Potassium 5.2 3.4 - 5.3 mmol/L 10/30/2024 7:17 AM CDT UR LABORATORY Chloride 88(L) 98 - 107 mmol/L 10/30/2024 7:17 AM CDT UR LABORATORY Carbon Dioxide (CO2) 25 22 - 29 mmol/L 10/30/2024 7:17 AM CDT UR LABORATORY Anion Gap 13 7 - 15 mmol/L 10/30/2024 7:17 AM CDT UR LABORATORY Urea Nitrogen 11.7 8.0 - 23.0 mg/dL 10/30/2024 7:17 AM CDT UR LABORATORY Creatinine 0.68 0.67 - 1.17 mg/dL 10/30/2024 7:17 AM CDT UR LABORATORY GFR Estimate >90 >60 mL/min/1.7 3m2 10/30/2024 7:17 AM CDT UR LABORATORY Comment:eGFR calculated us2020 CKD-EPI equation. Calcium 8.4(L) 8.8 - 10.4 mg/dL 10/30/2024 7:17 AM CDT UR LABORATORY Glucose 337(H) 70 - 99 mg/dL 10/30/2024 7:17 AM CDT UR LABORATORY Blood STRUCTURE OF RIGHT UPPER LIMB / Unknown Venipuncture / Unknown 10/30/2024 6:19 AM CDT 10/30/2024 6:45 AM CDT Zee Espana PA-C LAB - BLOOD ORDERABLES F inal Result UR LABORATORY [facility] [address] [facility], Room [place] [phone], [facility] * (ABNORMAL) Glucose by meter (10/30/2024 6:12 AM CDT) GLUCOSE BY METER POCT 337(H) 70 - 99 mg/dL 10/30/2024 6:18 AM CDT UR LABORATORY POC Blood, Capillary BLOOD SPECIMEN / Unknown 10/30/2024 6:12 AM CDT 10/30/2024 6:18 AM CDT Finn Monroe DO LAB - BEAKER POCT Final Re sult Performing Organization Address City/[facility]/ZIP Co de Phone Number UR LABORATORY POC [facility] [address] [place] [address], Room [place] [phone], [facility] * (ABNORMAL) Glucose by meter (10/30/2024 2:27 AM CDT) GLUCOSE BY METER POCT 289(H) 70 - 99 mg/dL 10/30/2024 2:34 AM CDT UR LABORATORY POC Blood, Capillary BLOOD SPECIMEN / Unknown 10/30/2024 2:27 AM CDT 10/30/2024 2:34 AM CDT Finn Monroe DO LAB - BEAKER POCT Final Re sult UR LABORATORY POC [facility] [address] [place] [address], Room [place] [phone], [facility] * (ABNORMAL) Glucose by meter (10/29/2024 9:51 PM CDT) GLUCOSE BY METER POCT 326(H) 70 - 99 mg/dL 10/29/2024 9:58 PM CDT UR LABORATORY POC Blood, Capillary BLOOD SPECIMEN / Unknown 10/29/2024 9:51 PM CDT 10/29/2024 9:58 PM CDT us Finn Monroe DO LAB - BEAKER POCT Final Re sult Performing Organization Address City/[facility]/ZIP Co de Phone Number UR LABORATORY POC [facility] [address] [facility], Room [place] [phone] * (ABNORMAL) Glucose by meter (10/29/2024 4:41 PM CDT) [facility] GLUCOSE BY METER POCT 102(H) 70 - 99 mg/dL 10/29/2024 4:48 PM CDT UR LABORATORY POC Blood, Capillary BLOOD SPECIMEN / Unknown 10/29/2024 4:41 PM CDT 10/29/2024 4:48 PM CDT us Finn Monroe DO LAB - BEAKER POCT Final Re sult Performing Organization Address City/[facility] Co de Phone Number UR LABORATORY POC [facility] [address] [place] [address], Room [place] [phone] documented in this encounter Visit Diagnoses Diagnosis Ischemic stroke (H)- Primary Ischemic stroke (H) 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 of right middle cerebral artery (H) documented in this encounter Administered Medications Inactive Administered Medications - up to 3 most recent administrations Medication Order MAR Action Action Date Dose Rate Site acetaminophen (TYLENOL) tablet 650 mg 650 mg, Oral, EVERY 4 HOURS PRN, mild pain, other, and adjunct with moderate or severe pain or per patient request, Starting on Sun10/29/24 at 1442, Maximum acetaminophen dose from all sources = 75 mg/kg/day not to exceed 4 grams/day. $Given 11/03/2024 12:37 PM CDT 650 mg $Given 10/31/2024 12:45 PM CDT 650 mg $Given 10/30/2024 8:38 PM CDT 650 mg amiodarone (PACERONE) tablet 200 mg 200 mg, Oral, DAILY, First dose on Sun10/30/24 at 0800, For 14 days, Tablets can be crushed and given via enteral route. Avoid grapefruit juice during oral amiodarone treatment. $Given 11/04/2024 7:46 AM CDT 200 mg $Given 11/03/2024 9:19 AM CDT 200 mg $Given 11/02/2024 7:35 AM CDT 200 mg apixaban ANTICOAGULANT (ELIQUIS) tablet 5 mg 5 mg, Oral, 2 TIMES DAILY, First dose on Sun10/29/24 at 2100, Indications: Afib-non valvularIndications:Afib-non valvular $Given 11/04/2024 7:47 AM CDT 5 mg $Given 11/03/2024 8:46 PM CDT 5 mg $Given 11/03/2024 9:23 AM CDT 5 mg atorvastatin (LIPITOR) tablet 40 mg 40 mg, Oral, EVERY EVENING, First dose on Sun10/29/24 at 2100 $Given 11/03/2024 8:47 PM CDT 40 mg $Given 11/02/2024 8:52 PM CDT 40 mg $Given 11/01/2024 8:03 PM CDT 40 mg cholecalciferol (VITAMIN D3) capsule 125 mcg 125 mcg, Oral, DAILY, First dose on Sun10/30/24 at 0800, Note: 125 mcg = 5000 units $Given 11/04/2024 7:46 AM CDT 125 mcg $Given 11/03/2024 9:19 AM CDT 125 mcg $Given 11/02/2024 7:35 AM CDT 125 mcg dextrose 50 % injection 25-50 mL 25-50 mL, Intravenous, EVERY 15 MIN PRN, low blood sugar, Administer over 1-5 Minutes, Starting on Sun10/29/24 at 1442, Use if have IV access, BG less [...] Topical, 4 TIMES DAILY, First dose on Sun10/29/24 at 1600, Apply to right lower chest/flank. Use supplied dosing card to measure dose. $Given 11/04/2024 7:51 AM CDT 2 g $Given 11/03/2024 8:47 PM CDT 2 g $Given 11/03/2024 5:25 PM CDT 2 g ezetimibe (ZETIA) tablet 10 mg 10 mg, Oral, EVERY EVENING, First dose on Sun10/29/24 at 2100 $Given 11/03/2024 8:47 PM CDT 10 mg $Given 11/02/2024 8:52 PM CDT 10 mg $Given 11/01/2024 8:03 PM CDT 10 mg glucagon injection 1 mg 1 mg, Subcutaneous, EVERY 15 MIN PRN, low blood sugar, May repeat x 1 only, Starting on Sun10/29/24 at 1442, May give SQ or IM. ONLY use glucagon IF patient has NO IV access AND is UNABLE to swallow AND blood glucose is LESS than or EQUAL to 50 mg/dL. glucose gel 15-30 g 15-30 g, Oral, EVERY 15 MIN PRN, low blood sugar, Starting on Sun10/29/24 at 1442, Give first dose for initial blood glucose [...] Oral, 2 TIMES DAILY, First dose on Sun10/29/24 at 2100, DO NOT CRUSH. $Given 11/04/2024 7:46 AM CDT 600 mg $Given 11/03/2024 8:47 PM CDT 600 mg $Given 11/03/2024 9:25 AM CDT 600 mg insulin aspart (NovoLOG) injection (RAPID ACTING) 1-10 Units, Subcutaneous, 3 TIMES DAILY BEFORE MEALS, First dose on Sun10/29/24 at 1700, For 7 doses, Correction Scale - HIGH INSULIN RESISTANCE DOSING [...] mg/dL after administration of correction dose. $Given 10/31/2024 12:33 PM CDT 4 Units $Given 10/31/2024 7:43 AM CDT 3 Units $Given 10/30/2024 5:26 PM CDT 2 Units insulin aspart (NovoLOG) injection (RAPID ACTING) 1-7 Units, Subcutaneous, AT BEDTIME, First dose on Sun10/29/24 at 2200, HIGH INSULIN RESISTANCE DOSING Do [...] mg/dL after administration of correction dose. $Given 10/29/2024 9:53 PM CDT 6 Units insulin aspart (NovoLOG) injection (RAPID ACTING) Subcutaneous, 3 TIMES DAILY WITH MEALS, First dose on Sun10/29/24 at 1800, For 6 doses, DOSE: 1 units per 5 grams of carbohydrate. Only chart total amount of units given. Administering insulin within 5 minutes of the start of the meal is ideal. Administer insulin no more than 30 minutes after the start of the meal, unless directed otherwise by provider. If pre-prandial glucose is less than 60 mg/dL, treat per hypoglycemia protocol prior to administration of mealtime insulin dose. $Given 10/31/2024 12:36 PM CDT 13 Units $Given 10/31/2024 8:01 AM CDT 6 Units $Given 10/30/2024 7:16 PM CDT 2 Units insulin aspart (NovoLOG/FIASP) 100 UNIT/ML VIAL FOR FILLING PUMP RESERVOIR Device, SEE ADMIN INSTRUCTIONS, Starting on Sun10/31/24 at 1058, Scan vial and chart when filling insulin pump reservoir Refill pump 10/31/2024 4:54 PM CDT 1 vial insulin basal rate from AMBULATORY PUMP Insulin type in pump reservoir: insulin aspart (NovoLOG), Basal Rates and Start/End times: 00:00-23:59 0.9 units/hour. Setting when patient running in Manual Mode. Should run in Auto mode $New Bag 10/31/2024 5:03 PM CDT insulin bolus from AMBULATORY PUMP Insulin type in pump reservoir: insulin aspart (NovoLOG), 00:00-23:59 Bolus-Correction 1 unit(s) to lower blood glucose by 40 mg/dL $Given 11/04/2024 12:00 PM CDT $Given 11/04/2024 8:00 AM CDT 10.8 Units $Given by Patient/Family 11/03/2024 9:17 PM CDT insulin bolus from AMBULATORY PUMP Insulin type in pump reservoir: insulin aspart (NovoLOG), 00:00-23:59 Insulin dose = 1 units for 10 grams of carbohydrate $Given 11/04/2024 12:00 PM CDT 6.75 Units $Given 11/04/2024 8:00 AM CDT $Given by Patient/Family 11/03/2024 6:23 PM CDT insulin glargine (LANTUS PEN) injection 27 Units 27 Units, Subcutaneous, EVERY 24 HOURS, First dose (after last modification) on Sun10/30/24 at 1800 $Given 10/30/2024 5:26 PM CDT 27 Units insulin glargine (LANTUS PEN) injection 30 Units 30 Units, Subcutaneous, AT BEDTIME, First dose on Sun10/29/24 at 2200 $Given 10/29/2024 9:54 PM CDT 30 Units lamoTRIgine (LaMICtal) tablet 300 mg 300 mg, Oral, 2 TIMES DAILY, First dose on Sun10/29/24 at 2100 $Given 11/04/2024 7:47 AM CDT 300 mg $Given 11/03/2024 8:47 PM CDT 300 mg $Given 11/03/2024 9:19 AM CDT 300 mg Lidocaine (LIDOCARE) 4 % Patch 2 patch 2 patch, Transdermal, Administer over 12 Hours, EVERY 24 HOURS 0800, First dose on Sun10/30/24 at 0800, Apply patch(s) to ribs. To prevent lidocaine [...] electric blankets, or other equipment. $Patch/Med Applied 10/31/2024 7:55 AM CDT 2 patches Right Upper Back $Patch/Med Applied 10/30/2024 8:25 AM CDT 2 patches Other (see comments) lisinopril (ZESTRIL) tablet 30 mg 30 mg, Oral, DAILY, First dose on Sun10/30/24 at 0800, Hold for SBP <110 $Given 11/04/2024 7:46 AM CDT 30 mg $Given 11/03/2024 9:24 AM CDT 30 mg $Given 11/02/2024 7:36 AM CDT 30 mg magnesium oxide (MAG-OX) tablet 400 mg 400 mg, Oral, DAILY, First dose on Sun10/30/24 at 0800 $Given 11/04/2024 7:46 AM CDT 400 mg $Given 11/03/2024 9:25 AM CDT 400 mg $Given 11/02/2024 7:34 AM CDT 400 mg melatonin tablet 3 mg 3 mg, Oral, AT BEDTIME PRN, sleep, Starting on Sun10/29/24 at 1442 $Given 11/01/2024 8:03 PM CDT 3 mg $Given 10/31/2024 9:18 PM CDT 3 mg metFORMIN (GLUCOPHAGE) tablet 500 mg 500 mg, Oral, DAILY WITH SUPPER, First dose on Sun10/29/24 at 1700, If the patient receives intravenous, iodinated contrast and patient GFR is greater than 60 mL/min/1.7m2, continue metformin. Contact provider for 'hold' or 'no hold' instructions if no GFR or if GFR is less than 60 mL/min/1.7m2. $Given 11/03/2024 5:40 PM CDT 500 mg $Given 11/02/2024 5:42 PM CDT 500 mg $Given 11/01/2024 6:14 PM CDT 500 mg metoprolol succinate ER (TOPROL XL) 24 hr tablet 50 mg 50 mg, Oral, 2 TIMES DAILY, First dose on Sun10/29/24 at 2100, DO NOT CRUSH. Tablet may be split in half along score line. Hold for SBP <100 or HR <60 $Given 11/04/2024 7:47 AM CDT 50 mg $Given 11/03/2024 8:47 PM CDT 50 mg $Given 11/03/2024 9:20 AM CDT 50 mg miconazole (MICATIN) 2 % powder Topical, 2 TIMES DAILY, First dose on Sun10/29/24 at 2100, Apply to skin folds $Given 11/02/2024 9:55 AM CDT $Given 11/01/2024 8:03 PM CDT $Given 11/01/2024 8:53 AM CDT multivitamin w/minerals (THERA-VIT-M) tablet 1 tablet 1 tablet, Oral, DAILY, First dose on Teresa 10/30/24 at 0800 $Given 11/04/2024 7:46 AM CDT 1 tablet $Given 11/03/2024 9:19 AM CDT 1 tablet $Given 11/02/2024 7:36 AM CDT 1 tablet naloxone (NARCAN) injection 0.2 mg 0.2 mg, Intravenous, EVERY 2 MIN PRN, opioid reversal, Starting on Sun10/29/24 at 1521, Administer intravenous route when available and notify [...] 2 MIN PRN, opioid reversal, Starting on Sun10/29/24 at 1521, Administer intramuscular if an intravenous route is [...] 2 MIN PRN, opioid reversal, Starting on Sun10/29/24 at 1521, Administer intravenous route when available and notify [...] 2 MIN PRN, opioid reversal, Starting on Sun10/29/24 at 1521, Administer intramuscular if an intravenous route is [...] have not improved after 4 naloxone doses. oxyCODONE (ROXICODONE) tablet 5 mg 5 mg, Oral, 2 TIMES DAILY PRN, severe pain, Starting on Sun10/29/24 at 1442, Wait at least 4 hours between doses $Given 11/03/2024 12:37 PM CDT 5 mg $Given 10/30/2024 2:51 AM CDT 5 mg Ba ck psyllium (METAMUCIL/KONSYL) capsule 5 capsule 5 capsule, Oral, DAILY, First dose on Sun10/30/24 at 0800, Each capsule should be administered individually with 8 ounces of fluid. $Given 11/04/2024 7:46 AM CDT 5 capsules $Given 11/03/2024 9:25 AM CDT 5 capsules $Given 11/02/2024 7:35 AM CDT 5 capsules tiZANidine (ZANAFLEX) tablet 2-4 mg 2-4 mg, Oral, EVERY 8 HOURS PRN, muscle spasms, Starting on Sun10/29/24 at 1442 $Given 11/02/2024 8:51 PM CDT 2 mg $Given 11/01/2024 9:00 PM CDT 2 mg $Given 10/31/2024 9:10 PM CDT 2 mg documented in this encounter Active and Recently Administered Medications Times are shown in CDT. Scheduled Medication Order 11/02/2024 11/03/2024 11/04/2024 amiodarone (PACERONE) tablet 200 mg 200 mg, Oral, DAILY, First dose on Sun10/30/24 at 0800, For 14 days, Tablets can be crushed and given via enteral route. Avoid grapefruit juice during oral amiodarone treatment. 0735 ($Given - Provider: Ender Chaney RN) 0919 ($Given - Provider: Bernice Figueroa) 0746 ($Given - Provider: Judith Pierce RN) apixaban ANTICOAGULANT (ELIQUIS) tablet 5 mg 5 mg, Oral, 2 TIMES DAILY, First dose on Sun10/29/24 at 2100, Indications: Afib-non valvular 0735 ($Given - Provider: Ender Chaney RN)0810 (Canceled Entry - Provider: Ender Chaney RN)2051 ($Given - Provider: Irwin Peña RN) 0923 ($Given - Provider: Bernice Figueroa)2045 ($Given - Provider: Makayla Velásquez RN) 0747 ($Given - Provider: Judith Pierce, MENDEL)0900 (Canceled Entry - Provider: Judith Pierce RN) atorvastatin (LIPITOR) tablet 40 mg 40 mg, Oral, EVERY EVENING, First dose on Sun10/29/24 at 2099 2051 ($Given - Provider: Irwin Peña RN) 2046 ($Given - Provider: Makayla Velásquez RN) cholecalciferol (VITAMIN D3) capsule 125 mcg 125 mcg, Oral, DAILY, First dose on Sun10/30/24 at 0800, Note: 125 mcg = 5000 units 0735 ($Given - Provider: Ender Chaney RN) 0919 ($Given - Provider: eBrnice Figueroa) 0746 ($Given - Provider: Judith Pierce, MENDEL) diclofenac (VOLTAREN) 1 % topical gel 2 g 2 g, Topical, 4 TIMES DAILY, First dose on Sun10/29/24 at 1600, Apply to right lower chest/flank. Use supplied dosing card to measure dose. 0740 (Not Given - Provider: Ender Chaney RN - Reason: Patient/family refused)1219 (Not Given - Provider: Ender Chaney RN - Reason: Patient/family refused)1616 (Not Given - Provider: Irwin Peña RN - Reason: Patient/family refused)2056 ($Given - Provider: Irwin Peña RN) 0935 (Not Given - Provider: Bernice Figueroa - Reason: Patient/family refused)1236 ($Given - Provider: Sylvia Blackman RN)1725 ($Given - Provider: Makayla Velásquez, MENDEL)204 ($Given - Provider: Makayla Velásquez RN) 0751 ($Given - Provider: Judith Pierce RN)1200 (Canceled Entry - Provider: Orders Generic Provider - Comment: Automatically canceled at discontinue of medication order) ezetimibe (ZETIA) tablet 10 mg 10 mg, Oral, EVERY EVENING, First dose on Sun10/29/24 at 2099 2051 ($Given - Provider: Irwin Peña RN) 2046 ($Given - Provider: Makayla Velásquez, MENDEL) guaiFENesin (MUCINEX) 12 hr tablet 600 mg 600 mg, Oral, 2 TIMES DAILY, First dose on Sun10/29/24 at 2100, DO NOT CRUSH. 0736 ($Given - Provider: Ender Chaney RN)0810 (Canceled Entry - Provider: Ender Chaney RN)2051 ($Given - Provider: Irwin Peña RN) 0925 ($Given - Provider: Bernice Figueroa)2046 ($Given - Provider: Makayla Velásquez, MENDEL) 0746 ($Given - Provider: Judith Pierce, MENDEL)0900 (Canceled Entry - Provider: Judith Pierce RN) insulin aspart (NovoLOG/FIASP) 100 UNIT/ML VIAL FOR FILLING PUMP RESERVOIR Device, SEE ADMIN INSTRUCTIONS, Starting on Sun10/31/24 at 1058, Scan vial and chart when filling insulin pump reservoir insulin bolus from AMBULATORY PUMP Insulin type in pump reservoir: insulin aspart (NovoLOG), 00:00-23:59 Bolus-Correction 1 unit(s) to lower blood glucose by 40 mg/dL 0740 ($Given - Provider: Ender Chaney RN)1219 ($Given - Provider: Ender Chaney RN)1745 ($Given - Provider: Irwin Peña RN)2100 ($Given - Provider: Irwin Peña RN - Comment: bs 119) 0926 ($Given - Provider: Bernice Figueroa)1236 ($Given - Provider: Sylvia Blackman RN)1741 (Not Given - Provider: Makayla Velásquez RN - Reason: Patient/family refused - Comment: pt states no correction for BG of 160)2116 ($Given by Patient/Family - Provider: Makayla Velásquez RN - Comment: BG 269) 0800 ($Given - Provider: Judith Pierce, MENDEL)1200 ($Given - Provider: Judith Pierce, MENDEL) insulin bolus from AMBULATORY PUMP Insulin type in pump reservoir: insulin aspart (NovoLOG), 00:00-23:59 Insulin dose = 1 units for 10 grams of carbohydrate 0740 ($Given - Provider: Ender Chaney RN)1219 ($Given - Provider: Ender Chaney RN)1745 ($Given - Provider: Irwin Peña RN) 0926 ($Given - Provider: Bernice Figueroa)1237 ($Given - Provider: Sylvia Blackman RN)1823 ($Given by Patient/Family - Provider: Makayla Velásquez RN - Comment: 59g CHOpt eating now) 0800 ($Given - Provider: Judith Pierce RN)1200 ($Given - Provider: Judith Pierce RN) lamoTRIgine (LaMICtal) tablet 300 mg 300 mg, Oral, 2 TIMES DAILY, First dose on Sun10/29/24 at 2100 0735 ($Given - Provider: Ender Chaney RN)0810 (Canceled Entry - Provider: Ender Chaney RN)205 ($Given - Provider: Irwin Peña RN) 0919 ($Given - Provider: Bernice Figueroa)7 ($Given - Provider: Makayla Velásquez RN) 0747 ($Given - Provider: Judith Pierce RN)0900 (Canceled Entry - Provider: Judith Pierce RN) Lidocaine (LIDOCARE) 4 % Patch 2 patch 2 patch, Transdermal, Administer over 12 Hours, EVERY 24 HOURS 0800, First dose on Sun10/30/24 at 0800, Apply patch(s) to ribs. To prevent lidocaine [...] heating pads, electric blankets, or other equipment. 0736 (Not Given - Provider: Ender Chaney RN - Reason: Patient/family refused) 0918 (Not Given - Provider: Bernice Figueroa - Reason: Patient/family refused) 0747 (Hold - Provider: Judith Pierce RN - Reason: Patient/family refused) lisinopril (ZESTRIL) tablet 30 mg 30 mg, Oral, DAILY, First dose on Sun10/30/24 at 0800, Hold for SBP <110 0736 ($Given - Provider: Ender Chaney RN) 0924 ($Given - Provider: Bernice Figueroa) 0746 ($Given - Provider: Judith Pierce RN) magnesium oxide (MAG-OX) tablet 400 mg 400 mg, Oral, DAILY, First dose on Sun10/30/24 at 0800 0734 ($Given - Provider: Ender Chaney RN) 0925 ($Given - Provider: Bernice Figueroa) 0746 ($Given - Provider: Judith Pierce RN) metFORMIN (GLUCOPHAGE) tablet 500 mg 500 mg, Oral, DAILY WITH SUPPER, First dose on Sun10/29/24 at 1700, If the patient receives intravenous, iodinated contrast and patient GFR is greater than 60 mL/min/1.7m2, continue metformin. Contact provider for 'hold' or 'no hold' instructions if no GFR or if GFR is less than 60 mL/min/1.7m2. 1742 ($Given - Provider: Irwin Peña RN) 1740 ($Given - Provider: Makayla Velásquez, MENDEL) metoprolol succinate ER (TOPROL XL) 24 hr tablet 50 mg 50 mg, Oral, 2 TIMES DAILY, First dose on Sun10/29/24 at 2100, DO NOT CRUSH. Tablet may be split in half along score line. Hold for SBP <100 or HR <60 0734 ($Given - Provider: Ender Chaney RN)0810 (Canceled Entry - Provider: Ender Chaney RN)2051 ($Given - Provider: Irwin Peña RN) 0920 ($Given - Provider: Bernice Figueroa)2046 ($Given - Provider: Makayla Velásquez RN) 0747 ($Given - Provider: Judith Pierce RN)0900 (Canceled Entry - Provider: Judith Pierce RN) miconazole (MICATIN) 2 % powder Topical, 2 TIMES DAILY, First dose on Sun10/29/24 at 2100, Apply to skin folds 0955 ($Given - Provider: Ender Chaney RN)2050 (Not Given - Provider: Irwin Peña RN - Reason: Patient/family refused) 0935 (Not Given - Provider: Bernice Figueroa - Reason: Patient/family refused)2046 (Not Given - Provider: Makayla Velásquez RN - Reason: Patient/family refused) 0900 (Canceled Entry - Provider: Judith Pierce RN) multivitamin w/minerals (THERA-VIT-M) tablet 1 tablet 1 tablet, Oral, DAILY, First dose on Sun10/30/24 at 0800 0736 ($Given - Provider: Ender Chaney RN) 0919 ($Given - Provider: Bernice Figueroa) 0746 ($Given - Provider: Judith Pierce RN) psyllium (METAMUCIL/KONSYL) capsule 5 capsule 5 capsule, Oral, DAILY, First dose on Sun10/30/24 at 0800, Each capsule should be administered individually with 8 ounces of fluid. 0735 ($Given - Provider: Ender Chaney RN) 0925 ($Given - Provider: Bernice Figueroa) 0746 ($Given - Provider: Judith Pierce RN) Continuous Medication Order 11/02/2024 11/03/2024 11/04/2024 insulin basal rate from AMBULATORY PUMP Insulin type in pump reservoir: insulin aspart (NovoLOG), Basal Rates and Start/End times: 00:00-23:59 0.9 units/hour. Setting when patient running in Manual Mode. Should run in Auto mode PRN Medication Order 11/02/2024 11/03/2024 11/04/2024 acetaminophen (TYLENOL) tablet 650 mg 650 mg, Oral, EVERY 4 HOURS PRN, mild pain, other, and adjunct with moderate or severe pain or per patient request, Starting on Sun10/29/24 at 1442, Maximum acetaminophen dose from all sources = 75 mg/kg/day not to exceed 4 grams/day. 1237 ($Given - Provider: Sylvia Blackman RN) 8226 (Not Given - Provider: Judith Pierce RN - Reason: Patient/family refused) benzonatate (TESSALON) capsule 100 mg 100 mg, Oral, 3 TIMES DAILY PRN, cough, Starting on Sun10/29/24 at 1442, Swallow whole. Do not chew, crush or break. dextrose 50 % injection 25-50 mL(Linked Group 1) 25-50 mL, Intravenous, EVERY 15 MIN PRN, low blood sugar, Administer over 1-5 Minutes, Starting on Sun10/29/24 at 1442, Use if have IV access, BG less [...] minute checks. glucagon injection 1 mg(Linked Group 1) 1 mg, Subcutaneous, EVERY 15 MIN PRN, low blood sugar, May repeat x 1 only, Starting on Sun10/29/24 at 1442, May give SQ or IM. ONLY use glucagon IF patient has NO IV access AND is UNABLE to swallow AND blood glucose is LESS than or EQUAL to 50 mg/dL. glucose gel 15-30 g(Linked Group 1) 15-30 g, Oral, EVERY 15 MIN PRN, low blood sugar, Starting on Sun10/29/24 at 1442, Give first dose for initial blood glucose [...] Document juice on I and O flowsheet. melatonin tablet 3 mg 3 mg, Oral, AT BEDTIME PRN, sleep, Starting on Sun10/29/24 at 1442 naloxone (NARCAN) injection 0.2 mg(Linked Group 2) 0.2 mg, Intravenous, EVERY 2 MIN PRN, opioid reversal, Starting on Sun10/29/24 at 1521, Administer intravenous route when available and notify [...] doses. naloxone (NARCAN) injection 0.2 mg(Linked Group 2) 0.2 mg, Intramuscular, EVERY 2 MIN PRN, opioid reversal, Starting on Sun10/29/24 at 1521, Administer intramuscular if an intravenous route is [...] doses. naloxone (NARCAN) injection 0.4 mg(Linked Group 2) 0.4 mg, Intravenous, EVERY 2 MIN PRN, opioid reversal, Starting on Sun10/29/24 at 1521, Administer intravenous route when available and notify [...] doses. naloxone (NARCAN) injection 0.4 mg(Linked Group 2) 0.4 mg, Intramuscular, EVERY 2 MIN PRN, opioid reversal, Starting on Sun10/29/24 at 1521, Administer intramuscular if an intravenous route is [...] have not improved after 4 naloxone doses. oxyCODONE (ROXICODONE) tablet 5 mg 5 mg, Oral, 2 TIMES DAILY PRN, severe pain, Starting on Sun10/29/24 at 1442, Wait at least 4 hours between doses 1237 ($Given - Provider: Sylvia Blackman, RN) Patient is already receiving anticoagulation with heparin, enoxaparin (LOVENOX), warfarin (COUMADIN) or other anticoagulant medication CONTINUOUS PRN, Starting on Sun10/29/24 at 1442, Until Sun11/04/24 at 1516 senna-docusate (SENOKOT-S/PERICOLACE) 8.6-50 MG per tablet 1 tablet 1 tablet, Oral, 2 TIMES DAILY PRN, constipation, Starting on Sun10/29/24 at 1442, Hold for loose stools. tiZANidine (ZANAFLEX) tablet 2-4 mg 2-4 mg, Oral, EVERY 8 HOURS PRN, muscle spasms, Starting on Sun10/29/24 at 1442 2051 ($Given - Provider: Irwin Peña RN) Linked Groups Order Group 1: glucose gel 15-30 gJump to med 15-30 g, Oral, EVERY 15 MIN PRN, low blood sugar, Starting on Sun10/29/24 at 1442, Give first dose for initial blood glucose [...] sugar, Administer over 1-5 Minutes, Starting on Sun10/29/24 at 1442, Use if have IV access, BG less [...] May repeat x 1 only, Starting on Sun10/29/24 at 1442, May give SQ or IM. ONLY use glucagon IF patient has NO IV access AND is UNABLE to swallow AND blood glucose is LESS than or EQUAL to 50 mg/dL. Group 2: naloxone (NARCAN) injection 0.2 mgJump to med 0.2 mg, Intravenous, EVERY 2 MIN PRN, opioid reversal, Starting on Sun10/29/24 at 1521, Administer intravenous route when available and notify [...] 2 MIN PRN, opioid reversal, Starting on Sun10/29/24 at 1521, Administer intravenous route when available and notify [...] 2 MIN PRN, opioid reversal, Starting on Sun10/29/24 at 1521, Administer intramuscular if an intravenous route is [...] 2 MIN PRN, opioid reversal, Starting on Sun10/29/24 at 1521, Administer intramuscular if an intravenous route is [...] have not improved after 4 naloxone doses. documented in this encounter Care Teams Call Center Supervisor Relationship Specialty [place] [address] [place] [address] PCP - General Family Practice 11/21/16 Stephie Mahoney MD [address] [place] [address] [phone] Endocrinology, Diabetes, and Metabolism 04/22/21 Federica Foster, RN [address] [place] [address] [phone] Transportation Department Supervisor Diabetes Education 04/22/[address] [place] [phone] Transportation Department Supervisor Nutrition 04/22/21 Stephie Mahoney MD [address] [facility] [address] [place], [place] [address] Assigned Endocrinology Provider 05/08/21 Olga Garcia, RN Specialty Advanced Practice Registered Nurse INTERNAL MEDICINE - ENDOCRINOLOGY, DIABETES & METABOLISM 09/29/22 Junior Chavira MD [address] [place] [address] Cardiovascular Disease 05/29/24 [place] [address] [place] [address] Assigned PCP 07/12/24 Junior Chavira MD [address] [place], [place] 0[address] Assigned Heart and Vascular Provider 08/11/24 Coni Dhaliwal, EIGHT ARM OPERATOR [address] [place] [address] Nurse Practitioner Psychiatry & Neurology Vascular Neurology 11/04/24 Anel Long NP [address] [place] [address] Nurse Practitioner Psychiatry & Neurology Vascular Neurology 11/04/24 documented as of this encounter
--- OUTSIDE RECORDS SUMMARY | 2024-12-11 23:50 | XMS_ITS | Encounter Summary ---
Author Organization [facility] Address [address] [place] [address]. [place] [address] Care Team Providers Care Matching Machine Operator Name Role Phone Wilber Vidales MD Primary Care Provider [phone] Stephie Mahoney MD Unavailable [phone] Federica Foster RN Unavailable [phone] Unavailable Stephie Mahoney MD Unavailable [phone] Olga Garcia RN Unavailable [phone] Junior Chavira MD Unavailable [phone] Shantel Walker MD Unavailable [phone] Junior Chavira MD Unavailable [phone] Coni Dhaliwal CNP Unavailable [phone] Anel Long NP Unavailable [phone] Reason for Visit * Reason Onset Date Comments Home Care/Hospice 11/07/2024 Encounter Details Date Type Department Care Team (Late st Contact Info) Description 11/07/2024 Telephone [facility] [address] [place] [address] [place] [address] [place] [address] Home Care/Hospice Social History Tobacco Use Types Packs/Day Years [...] How often do you attend chur or anabaptist services? 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 Wanting to confirm primary provider. Has not seen Dr. Vidales since 07/10/22. Saw Dr. Walker once 06/16/24. Saw Maisha once. No hospital follow-up with [facility] scheduled. Advised Talita she needs to clarify with patient who his current primary provider is and if he is still seeing [facility] then he needs hospital follow-up. Stephanie Davila, RN documented in this encounter Plan of Treatment Upcoming Encounters Date Type Department Care Team (Late st Contact Info) Description 12/17/2024 9:30 AM CDT Lab [facility] Laboratory [address] [place] [address] 12/23/2024 4:00 PM CDT Office Visit [facility] [address] [place] [phone] Cyrus Aleman MD [address] [place] [address] [phone] 01/27/2025 10:00 AM CDT Office Visit [facility] Neurology [address] [place] [phone] Anel Long NP [address] [place] [address] Coni Dhaliwal CNP [address] [address] 04/14/2025 11:15 AM CDT Office Visit [facility] Heart [facility] [address] [place] [address] [address] [place] [phone] Inessa Esteves DO [address] [place] [address] 06/05/2025 12:30 PM CDT Office Visit [facility] Endocrinology Clinic [address] [phone] Stephie Mahoney MD [address] [place] [address] 508215 11/13/2025 11:00 AM CDT Virtual Visit [facility] Endocrinology [address] [phone] Stephie Mahoney MD [address] [place] [address] 488375 documented as of this encounter Visit Diagnoses Not on filedocumented in this encounter Care Teams Matching Machine Operator Relationship Specialty [place] [address] [address] [place] [address] PCP - General Family Practice 11/21/16 Stephie Mahoney MD [address] [place] [address] 201205 Endocrinology, Diabetes, and Metabolism 04/22/21 Federica Foster, RN [address] [place] [address] [phone] Auto Mechanic Apprentice Diabetes Education 04/22/[address] [place] [address] Auto Mechanic Apprentice Nutrition 04/22/21 Stephie Mahoney MD [address] [place] [address] [phone] Assigned Endocrinology Provider 05/08/21 Olga Garcia, RN Specialty Table Assembler Metal INTERNAL MEDICINE - ENDOCRINOLOGY, DIABETES & METABOLISM 09/29/22 Junior Chavira MD [address] [place] [address] Cardiovascular Disease 05/29/24 [place] [address] [place] [address] Assigned PCP 07/12/24 Junior Chavira MD [address] [place] [phone] Assigned Heart and Vascular Provider 08/11/24 Coni Dhaliwal, COREY [address] [place] [address] Nurse Practitioner Psychiatry & Neurology Vascular Neurology 11/04/24 Anel Long, HYDRO PLANT OPERATOR [address] [place] [address] Nurse Practitioner Psychiatry & Neurology Vascular Neurology 11/04/24 documented as of this encounter
--- OUTSIDE RECORDS SUMMARY | 2024-12-11 23:50 | XMS_ITS | Encounter Summary ---
Author Organization [facility] Address [address] [place] [address]. [place] [address] Care Team Providers Care Director Post Name Role Phone Wilber Vidales MD Primary Care Provider [phone] Stephie Mahoney MD Unavailable [phone] Federica Foster RN Unavailable [phone] Unavailable [phone] Stephie Mahoney MD Unavailable [phone] Olga Garcia RN Unavailable [phone] Junior Chavira MD Unavailable [phone] Shantel Walker MD Unavailable [phone] Junior Chavira MD Unavailable [phone] Coni Dhaliwal CNP Unavailable [phone] Anel Long NP Unavailable [phone] Reason for Visit * Reason Onset Date Comments eliquis oral tablet 5 mg 11/03/2024 Encounter Details Date Type Department Care Team (Late st Contact Info) Description 11/03/2024 [facility] [address] [place] [phone] [place] [address] [place] [address] eliquis oral tablet 5 mg Social History Tobacco Use Types Packs/Day Years [...] any clubs o r organizations such as adventist groups, unions, fraternal or athletic groups, or [...] Answer Date Recorded PHQ-2 Score 0 11/23/2023 [facility] [...] in an overnight retirement, or couch-surfing.) Yes 10/29/2024 Are you worried [...] AM CDT 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 Gender Identity Male 03/03/2019 9:24 PM CDT Sexual Orientation Straight 03/03/2019 9: 24 PM CDT documented as of this encounter Miscellaneous Notes * Telephone Encounter - Rashmi Loo ARRT - 11/03/2024 1:47 PM CDT eliquis oral tablet 5 mg Not on the medication list/pharmacy requesting 180 qty refill documented in this encounter Plan of Treatment Upcoming Encounters Date Type Department Care Team (Late st Contact Info) Description 12/17/2024 9:30 AM CDT Lab [facility] Laboratory [address] [place] [phone] 12/23/2024 4:00 PM CDT Office Visit [facility] [address] [phone] Cyrus Aleman MD [address] [place] [address] 392185 01/27/2025 10:00 AM CDT Office Visit [facility] Neurology [facility] [address] [place] [address] [address] [place] [phone] Anel Long [employer] [address] [place], [place] [address] Coni Dhaliwal CNP [address] [facility] [address] [place], [place] [address] 04/14/2025 11:15 AM CDT Office Visit [facility] Heart [facility] [address] [facility] [address] [place] [phone] Inessa Esteves DO [address] [place], [place] [address] 06/05/2025 12:30 PM CDT Office Visit [facility] Endocrinology [facility] [address] [phone] Stephie Mahoney MD [address] [place] [address] 11/13/2025 11:00 AM CDT Virtual Visit [facility] [address] [place] [phone] Stephie Mahoney MD [address] [place] [address] documented as of this encounter Visit Diagnoses Diagnosis Ischemic stroke (H)- Primary documented in this encounter Care Teams Director Post Relationship Specialty [place] [address] [place] [address] PCP - General Family Practice 11/21/16 Stephie Mahoney MD [address] [place] [address] Endocrinology, Diabetes, and Metabolism 04/22/21 Federica Foster RN [address] [place] [address] Laundry Machine Mechanic Diabetes Education 04/22/[address] [place] [address] Laundry Machine Mechanic Nutrition 04/22/21 Stephie Mahoney MD [address] [place] [address] Assigned Endocrinology Provider 05/08/21 Olga Garcia, RN Specialty Wound Treatment Rn INTERNAL MEDICINE - ENDOCRINOLOGY, DIABETES & METABOLISM 09/29/22 Junior Chavira MD [address] [place] [address] Cardiovascular Disease 05/29/24 [place] [address] [address], [place] [address] Assigned PCP 07/12/24 Junior Chavira MD [address] [place] [address] Assigned Heart and Vascular Provider 08/11/24 Coni Dhaliwal, COREY [address] [place] [address] Nurse Practitioner Psychiatry & Neurology Vascular Neurology 11/04/24 Anel Long NP [address] [place] [address] Nurse Practitioner Psychiatry & Neurology Vascular Neurology 11/04/24 documented as of this encounter
--- OUTSIDE RECORDS SUMMARY | 2024-12-11 23:50 | XMS_ITS | Encounter Summary ---
Author Organization [facility] Address [address] [place] [address]. [place] [address] Care Team Providers Care Administration Intern Name Role Phone Wilber Vidales MD Primary Care Provider [phone] Stephie Mahoney MD Unavailable [phone] Federica Foster RN Unavailable [phone] Unavailable [phone] Stephie Mahoney MD Unavailable [phone] Olga Garcia RN Unavailable [phone] Junior Chavira MD Unavailable [phone] Shantel Walker MD Unavailable [phone] Junior Chavira MD Unavailable [phone] Coni Dhaliwal CNP Unavailable [phone] Anel Long NP Unavailable [phone] Reason for Visit * Reason Comments RECHECK Encounter Details Date Type Department Care Team (Latest Contact Info) Description 11/14/2024 11:30 AM CDT Virtual Visit [facility] [place] [address] [facility] 3rd [place] [address] Stephie Mahoney MD [address] [place] [address] [address] [place] [address] Type 1 diabetes mellitus with hyperglycemia (H) (Primary Dx); Elevated glucose Social History Tobacco Use Types [...] How often do you attend chur or protestant services? 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 Outcome for 11/12/24 10:25 AM: Data obtained via Floob[employer] and [employer] website Scott Scott MA * Stephie Mahoney MD - 11/14/2024 11:30 AM CDT Video-Visit Details Type of service: Video Visit Virtual visit conducted by [employer]. Originating Location (pt. Location): HOME Distant Location (provider location): Off site Mode of Communication: Video Conference via Network [employer] Physician has received verbal consent for a Video Visit from the patient? YES Stephie Mahoney MD 11/14/24 Start time 1145, stop time 1205, chart review, documentation time, coordination of care, 10 minutes. Total time spent day of encounter 30 minutes. I spent a total of 30 minutes on the date of encounter reviewing medical records, evaluating the patient, coordinating care and documenting in the EHR, as detailed, exclusive of CGM The longitudinal plan of care for the diagnosis(es)/condition(s) as documented were addressed during this visit. Due to the added complexity in care, I will continue to support the pt in the subsequent management and with ongoing continuity of care. Ambient AI was was used to help document this note with the patient's verbal consent. HPI #1 type 1 diabetes with positive [...] antiislet antibodies. The patient was started on Tcywvo61 units daily as well as a continuous [...] 5. April 2022 hemoglobin A1c at 6.8. March 2024 hemoglobin A1c at 6.7. Interval history: Patient currently on metformin 500 daily as well as the OmniPod 5. He reports tolerating this program. Notably, the patient recently had a prolonged hospitalization from September 2024 to October 2024 due to the [place], followed by stroke. Continues to have hyperglycemia with meals aswell as hypoglycemia when he exercises. October 2024 hemoglobin A1c at 7.5. LDL at 64. He has been onthe Dexcom G7 and OmniPod 5 compatible with the Dexcom G7 since May 2024. CGM reviewed: Average glucose 89, 46% within target range, 54% above range. Patient on OmniPod. Takes about 45 units/day, 29 units basal, 16 units bolus. Pump settings: Basal rate: 0.9 units/h Insulin sensitivity: 1 per 40 Blood glucose correction: Greater than 130 Insulin carb ratio 1 per 10 Blood glucose target: 120 ROS related to diabetes CV: History of aortic valve replacement in 2019 for severe aortic stenosis was noted nonocclusive coronary artery disease, March 2024 LDL 137-patient does not want to be on a statin, patient now on Zetia, October 2024 LDL 64 Neuro:none Neph: Negative protein in urine in [...] He denies any GI issues associate with metformin.Patient had head MRI in October 2023 that showed a possible right frontal lobe infarct with no evidence for malignancy.. Interval history: Patient was recently hospitalized from September 2024 to October 2024, which was complicated by left-sided weakness and concern for stroke as well as A-fib. He reports that he is gradually improving function and anticipates restarting work. #3 hypertension Patient currently on lisinopril 20 mg daily Interval history: Patient remains on lisinopril. #4 hyperlipidemia March 2024 LDL 137. Of note, the patient explicitly does not want to be on a statin because his is concerned that this might be contributing to dementia. Interval history: Patient started Zetia 10 mg daily in May 2024. October 2024 LDL is 64. #5 liver lesions noted in September 2024 CT scan Noted on September [address]24 CT scan. Per patient report, this has been noted previously. Per patient report, he is pending further evaluation including oncology evaluation and possible biopsy. Past Medical History Past Medical History: Diagnosis [...] Current Outpatient Medications Medication Sig Dispense Refill acetaminophen (TYLENOL) 325 MG tablet Take 2 [...] 14 days. 14 tablet 0 apixaban ANTICOAGULANT (ELIQUIS) 5 MG tablet Take 1 tablet (5 mg) by mouth 2 times daily. 180 tablet 1 atorvastatin (LIPITOR) 40 MG tablet Take 1 [...] Instructions. Change every3 days 30 each 3 INSULIN PUMP - OUTPATIENT Inject subcutaneously. Date Last Updated: 10/12/24 Omnipod BASAL RATES and times: Continuous (1389-2895: 0.9 units/hour CARB RATIO and times: 8306-1873: 1 unit for 10g of carbohydrates Corection Factor (Sensitivity) and times: 7800-8727: 1 unit lowers BG by 40 mg/dL [...] mg) by mouth daily. 90 tablet 1 magnesium oxide (MAG-OX) 400 MG tablet Take 1 tablet (400 mg) by mouth daily. Supplement 30 tablet 0 Melatonin 10 MG TABS tablet Take 10 mg by mouth at bedtime. metFORMIN (GLUCOPHAGE) 500 MG tablet Take 1 tablet (500 mg) by mouth daily (with dinner) 90 tablet 3 metoprolol succinate ER (TOPROL XL) 50 MG 24 hr tablet Take 1 tablet (50 mg) by mouth 2 times daily. 60 tablet 0 Multiple Vitamins-Minerals (MENS MULTI VITAMIN & MINERAL PO) Take 1 tablet by mouth daily oxyCODONE (ROXICODONE) 5 MG tablet Take 1 tablet (5 mg) by mouth 2 times daily as needed for severepain. 20 tablet 0 Psyllium (METAMUCIL FIBER PO) Take 1 Dose by mouth daily. sildenafil (VIAGRA) 100 MG tablet Take 1 tablet (100 mg) by mouth daily as needed (30 minutes priorto sexual activity) 12 tablet 11 tiZANidine (ZANAFLEX) 2 MG tablet Take 1-2 tablets (2-4 mg) by mouth every 8 hours as needed for muscle spasms. 90 tablet 0 vitamin C (ASCORBIC ACID) 1000 MG TABS [...] None Other Topics Concern Parent/sibling w/ CABG, MT or angioplasty before 65F 55M? No Social [...] to getmore?: No Transportation Needs: Low Risk (10/29/2024) Transportation Needs Within the past 12 months, has lack of transportation kept you from medical appointments, getting your medicines, non-medical meetings or appointments, work, or from getting things that you need?: No Physical Activity: Insufficiently Active (07/12/2023) Exercise Vital Sign Days of Exercise per Week: 3 days Minutes of Exercise per Session: 30 min Stress: Patient Declined (07/12/2023) [place] - Occupational Stress Questionnaire Feeling of Stress : Patient declined Social Connections: Socially Integrated (07/12/2023) Social Connection and Isolation Panel [NHANES] Frequency of Communication with Friends and Family: Twice a week Frequency of Social Gatherings with Friends and Family: Once a week Attends Sabianism Services: More than 4 times per year Active Member of Clubs or Organizations: Yes Attends Club or Organization Meetings: More than 4 times per year Marital Status: Interpersonal Safety: Low Risk (10/29/2024) Interpersonal Safety Do you feel physically and [...] housing?: No ROS Per HPI Physical Exam There were no vitals taken for this visit. GENERAL: Healthy, alert and no distress,EYES: Eyes grossly normal to inspection. No discharge or erythema, or obvious scleral/conjunctival abnormalities.,RESP: No audible wheeze, cough, or visible cyanosis. No visible retractions or increased work of breathing. ,SKIN: Visible skin clear. No si gnificant rash, abnormal pigmentation or lesions.,NEURO: Cranial nerves grossly intact. Mentationand speech appropriate for age.,PSYCH: Mentation appears normal, affect normal/bright, judgement and insight intact, normal speech and appearance well-groomed. RESULTS No visits with results within 1 Week(s) from this visit. Latest known visit with results is: Admission on 10/29/2024, Discharged on 11/04/2024 Component Date Value Ref Range Status GLUCOSE BY METER POCT 10/29/2024 102 (H) 70 - 99 mg/dL Final GLUCOSE BY METER POCT 10/29/2024 326 (H) 70 - 99 mg/dL Final Sodium 10/30/2024 126 (L) 135 - 145 mmol/L Final Potassium 10/30/2024 5.2 3.4 - 5.3 mmol/L Final Chloride 10/30/2024 88 (L) 98 - 107 mmol/L Final Carbon Dioxide (CO2) 10/30/2024 25 22 - 29 mmol/L Final Anion Gap 10/30/2024 13 7 - 15 mmol/L Final Urea Nitrogen 10/30/2024 11.7 8.0 - 23.0 mg/dL Final Creatinine 10/30/2024 0.68 0.67 - 1.17 mg/dL Final GFR Estimate 10/30/2024 >90 >60 mL/min/1.73m2 Final eGFR calculated using 2020 CKD-EPI equation. Calcium 10/30/2024 8.4 (L) 8.8 - 10.4 mg/dL Final Glucose 10/30/2024 337 (H) 70 - 99 mg/dL Final WBC Count 10/30/2024 8.3 4.0 - 11.0 10e3/uL Final RBC Count 10/30/2024 3.76 (L) 4.40 - 5.90 10e6/uL Final Hemoglobin 10/30/2024 11.4 (L) 13.3 - 17.7 g/dL Final Hematocrit 10/30/2024 32.9 (L) 40.0 - 53.0 % Final MCV 10/30/2024 88 78 - 100 fL Final MCH 10/30/2024 30.3 26.5 - 33.0 pg Final MCHC 10/30/2024 34.7 31.5 - 36.5 g/dL Final RDW 10/30/2024 11.9 10.0 - 15.0 % Final Platelet Count 10/30/2024 429 150 - 450 10e3/uL Final Magnesium 10/30/2024 1.9 1.7 - 2.3 mg/dL Final GLUCOSE BY METER POCT 10/30/2024 289 (H) 70 - 99 mg/dL Final GLUCOSE BY METER POCT 10/30/2024 337 (H) 70 - 99 mg/dL Final GLUCOSE BY METER POCT 10/30/2024 360 (H) 70 - 99 mg/dL Final GLUCOSE BY METER POCT 10/30/2024 337 (H) 70 - 99 mg/dL Final Sodium Urine mmol/L 10/30/2024 <20 mmol/L Final The reference ranges have not been established in urine sodium. The results should be integrated into the clinical context for interpretation. Osmolality Urine 10/30/2024 735 100 - 1,200 mmol/kg Final Osmolality Blood 10/30/2024 273 (L) 280 - 301 mmol/kg Final GLUCOSE BY METER POCT 10/30/2024 356 (H) 70 - 99 mg/dL Final GLUCOSE BY METER POCT 10/30/2024 366 (H) 70 - 99 mg/dL Final GLUCOSE BY METER POCT 10/30/2024 168 (H) 70 - 99 mg/dL Final GLUCOSE BY METER POCT 10/30/2024 147 (H) 70 - 99 mg/dL Final Sodium 10/31/2024 129 (L) 135 - 145 mmol/L Final Potassium 10/31/2024 4.1 3.4 - 5.3 mmol/L Final Chloride 10/31/2024 92 (L) 98 - 107 mmol/L Final Carbon Dioxide (CO2) 10/31/2024 28 22 - 29 mmol/L Final Anion Gap 10/31/2024 9 7 - 15 mmol/L Final Urea Nitrogen 10/31/2024 14.1 8.0 - 23.0 mg/dL Final Creatinine 10/31/2024 0.79 0.67 - 1.17 mg/dL Final GFR Estimate 10/31/2024 >90 >60 mL/min/1.73m2 Final eGFR calculated using 2020 CKD-EPI equation. Calcium 10/31/2024 8.7 (L) 8.8 - 10.4 mg/dL Final Glucose 10/31/2024 159 (H) 70 - 99 mg/dL Final GLUCOSE BY METER POCT 10/31/2024 125 (H) 70 - 99 mg/dL Final GLUCOSE BY METER POCT 10/31/2024 128 (H) 70 - 99 mg/dL Final Hold Specimen 10/31/2024 [facility] Final GLUCOSE BY METER POCT 10/31/2024 192 (H) 70 - 99 mg/dL Final GLUCOSE BY METER POCT 10/31/2024 224 (H) 70 - 99 mg/dL Final Dr/RN Notified GLUCOSE BY METER POCT 10/31/2024 231 (H) 70 - 99 mg/dL Final GLUCOSE BY METER POCT 10/31/2024 124 (H) 70 - 99 mg/dL Final GLUCOSE BY METER POCT 11/01/2024 201 (H) 70 - 99 mg/dL Final GLUCOSE BY METER POCT 11/01/2024 136 (H) 70 - 99 mg/dL Final GLUCOSE BY METER POCT 11/01/2024 144 (H) 70 - 99 mg/dL Final GLUCOSE BY METER POCT 11/01/2024 156 (H) 70 - 99 mg/dL Final GLUCOSE BY METER POCT 11/01/2024 123 (H) 70 - 99 mg/dL Final GLUCOSE BY METER POCT 11/01/2024 149 (H) 70 - 99 mg/dL Final GLUCOSE BY METER POCT 11/02/2024 164 (H) 70 - 99 mg/dL Final GLUCOSE BY METER POCT 11/02/2024 127 (H) 70 - 99 mg/dL Final GLUCOSE BY METER POCT 11/02/2024 130 (H) 70 - 99 mg/dL Final GLUCOSE BY METER POCT 11/02/2024 141 (H) 70 - 99 mg/dL Final GLUCOSE BY METER POCT 11/02/2024 160 (H) 70 - 99 mg/dL Final GLUCOSE BY METER POCT 11/02/2024 119 (H) 70 - 99 mg/dL Final Sodium 11/03/2024 125 (L) 135 - 145 mmol/L Final Potassium 11/03/2024 3.9 3.4 - 5.3 mmol/L Final Chloride 11/03/2024 88 (L) 98 - 107 mmol/L Final Carbon Dioxide (CO2) 11/03/2024 24 22 - 29 mmol/L Final Anion Gap 11/03/2024 13 7 - 15 mmol/L Final Urea Nitrogen 11/03/2024 15.6 8.0 - 23.0 mg/dL Final Creatinine 11/03/2024 0.82 0.67 - 1.17 mg/dL Final GFR Estimate 11/03/2024 >90 >60 mL/min/1.73m2 Final eGFR calculated using 2020 CKD-EPI equation. Calcium 11/03/2024 8.7 (L) 8.8 - 10.4 mg/dL Final Glucose 11/03/2024 165 (H) 70 - 99 mg/dL Final WBC Count 11/03/2024 3.9 (L) 4.0 - 11.0 10e3/uL Final RBC Count 11/03/2024 4.09 (L) 4.40 - 5.90 10e6/uL Final Hemoglobin 11/03/2024 12.3 (L) 13.3 - 17.7 g/dL Final Hematocrit 11/03/2024 35.1 (L) 40.0 - 53.0 % Final MCV 11/03/2024 86 78 - 100 fL Final MCH 11/03/2024 30.1 26.5 - 33.0 pg Final MCHC 11/03/2024 35.0 31.5 - 36.5 g/dL Final RDW 11/03/2024 12.0 10.0 - 15.0 % Final Platelet Count 11/03/2024 399 150 - 450 10e3/uL Final Magnesium 11/03/2024 1.7 1.7 - 2.3 mg/dL Final GLUCOSE BY METER POCT 11/03/2024 145 (H) 70 - 99 mg/dL Final GLUCOSE BY METER POCT 11/03/2024 133 (H) 70 - 99 mg/dL Final GLUCOSE BY METER POCT 11/03/2024 153 (H) 70 - 99 mg/dL Final GLUCOSE BY METER POCT 11/03/2024 138 (H) 70 - 99 mg/dL Final GLUCOSE BY METER POCT 11/03/2024 160 (H) 70 - 99 mg/dL Final GLUCOSE BY METER POCT 11/03/2024 269 (H) 70 - 99 mg/dL Final Sodium 11/04/2024 125 (L) 135 - 145 mmol/L Final Potassium 11/04/2024 4.0 3.4 - 5.3 mmol/L Final Chloride 11/04/2024 88 (L) 98 - 107 mmol/L Final Carbon Dioxide (CO2) 11/04/2024 28 22 - 29 mmol/L Final Anion Gap 11/04/2024 9 7 - 15 mmol/L Final Urea Nitrogen 11/04/2024 15.8 8.0 - 23.0 mg/dL Final Creatinine 11/04/2024 0.85 0.67 - 1.17 mg/dL Final GFR Estimate 11/04/2024 >90 >60 mL/min/1.73m2 Final eGFR calculated using 2020 CKD-EPI equation. Calcium 11/04/2024 8.4 (L) 8.8 - 10.4 mg/dL Final Glucose 11/04/2024 242 (H) 70 - 99 mg/dL Final GLUCOSE BY METER POCT 11/04/2024 319 (H) 70 - 99 mg/dL Final GLUCOSE BY METER POCT 11/04/2024 297 (H) 70 - 99 mg/dL Final Hold Specimen 11/04/2024 JI Final GLUCOSE BY METER POCT 11/04/2024 162 (H) 70 - 99 mg/dL Final ASSESSMENT: #1 type 1 diabetes with positive oliva antibodies and positive antiislet antibodies noted in March 2021 now on OmniPod 5 system February hemoglobin A1c at 7.5. Doing well on Zetia with October 2024 LDL 64. He does tend to have hyperglycemia during the day as well as some hypoglycemia at night. Will update pump settings as noted below: Pump settings: Basal rate: 0.9 units/h Insulin [...] pm to midngiht - correct above 130 We will give patient prescription for Lantus and combo in case of pump failure. We will ask for sensor and pump results in a few weeks to follow-up these adjustments. #2 neurological concerns Per his other providers #3 hypertension On Zestril #4 hyperlipidemia Apparently the patient was put on atorvastatin. He is also on Zetia. Will defer to other providers.Recent LDL satisfactory. Will have patient send CGM and pump results in a few weeks for for follow-up. Follow-up roughly every 6 months. documented in this encounter Nursing Notes * Rashmi Rocha - 11/14/2024 11:30 AM CDT Current patient location: [place] Is the patient currently in the state of [place]? YES Visit mode: VIDEO If the visit is dropped, the patient can be reconnected by:VIDEO VISIT: Text to cell phone: Telephone Information: Will anyone else be joining the visit? NO (If patient encounters technical issues they should call [phone] :[phone]) Are changes needed to the allergy or medication list? No Are refills needed on medications prescribed by this physician? NO Rooming Documentation: Questionnaire(s) completed Reason for visit: RECHECK Rashmi Rocha VVF documented in this encounter Plan of Treatment Upcoming Encounters Date Type Department Care Team (Late st Contact Info) Description 12/17/2024 9:30 AM CDT Lab [facility] [address] [place] [phone] 12/23/2024 4:00 PM CDT Office Visit [facility] [address] [facility] [address] [place] [phone] Cyrus Aleman MD [address] [place] [id number] 01/27/2025 10:00 AM CDT Office Visit [facility] Neurology [facility] [address] [place] [address] [address] [place] [phone] Anel Long, TRANSIT VEHICLE INSPECTOR [address] [place], [place] [address] Coni Dhaliwal CNP [address] [id number] 04/14/2025 11:15 AM CDT Office Visit [facility] Heart [facility] [address] [facility] [address] [place] [phone] Inessa Esteves DO [address] [place], [place] [phone] 06/05/2025 12:30 PM CDT Office Visit [facility] Endocrinology [facility] [address] [place] [phone] Stephie Mahoney MD [address] [place] [phone] 11/13/2025 11:00 AM CDT Virtual Visit [facility] [place] [id number] [facility] 3rd [place] [phone] Stephie Mahoney MD [address] [place] [phone] documented as of this encounter Procedures Procedure Name Priority Date/Time Associated Diagnosis Comments NC GLUCOSE MONITOR, 72 HOUR, PHYS INTERP & REPORT Routine 11/14/2024 8:01 PM CDT Type 1 diabetes mellitus with hyperglycemia (H) documented in this encounter Visit Diagnoses Diagnosis Type 1 diabetes mellitus with hyperglycemia (H)- Primary Type I (juvenile type) diabetes mellitus without mention of complication, not stated as uncontrolled Elevated glucose Other abnormal glucose documented in this encounter Care Teams Administration Intern Relationship Specialty [place] [address] [place] [address] PCP - General Family Practice 11/21/16 Stephie Mahoney MD [address] [place] [address] Endocrinology, Diabetes, and Metabolism 04/22/21 Federica Foster, RN [address] [place] [address] [employer] Diabetes Education 04/22/[address] [place] [address] [employer] Nutrition 04/22/21 Stephie Mahoney MD [address] [place] [address] Assigned Endocrinology Provider 05/08/21 Olga Garcia, RN Specialty Library Serials Assistant INTERNAL MEDICINE - ENDOCRINOLOGY, DIABETES & METABOLISM 09/29/22 uJnior Chavira MD [address] [place] [id number] Cardiovascular Disease 05/29/24 [place] [address] [place] [address] Assigned PCP 07/12/24 Junior Chavira MD [address] [place] [id number] Assigned Heart and Vascular Provider 08/11/24 Coni Dhaliwal, MIGRATORY FARM HAND [address] [place] [id number] Nurse Practitioner Psychiatry & Neurology Vascular Neurology 11/04/24 Anel Long, TRANSIT VEHICLE INSPECTOR [address] [place] [address] Nurse Practitioner Psychiatry & Neurology Vascular Neurology 11/04/24 documented as of this encounter
--- OUTSIDE RECORDS SUMMARY | 2024-12-11 23:51 | XMS_ITS | Encounter Summary ---
Author Organization [place] Address [address] [place] [address]. [place] [address] Care Team Providers Care Slitter Service And Setter Name Role Phone Wilber Vidales MD Primary Care Provider [phone] Stephie Mahoney MD Unavailable [phone] Federica Foster RN Unavailable [phone] Unavailable [phone] Stephie Mahoney MD Unavailable [phone] Olga Garcia RN Unavailable [phone] Junior Chavira MD Unavailable [phone] Shantel Walker MD Unavailable [phone] Junior Chavira MD Unavailable [phone] Coni Dhaliwal CNP Unavailable [phone] Anel Long NP Unavailable [phone] Reason for Visit * Reason Onset Date Comments Insulin Lantusletter mailed out 11/20/2024 Encounter Details Date Type Department Care Team (Late st Contact Info) Description 11/20/2024 [facility] Endocrinology [place] [address] [facility] 3rd [place] [address] Stephie Mahoney MD [address] [place] [address] [address] [place] [address] Insulin Lantusletter mailed out Social History Tobacco Use Types Packs/Day Years [...] How often do you attend chur or restorationism services? 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 Marcelo Valdez -General Drone Pilot documented in this encounter Plan of Treatment Upcoming Encounters Date Type Department Care Team (Late st Contact Info) Description 12/17/2024 9:30 AM CDT Lab [facility] Laboratory [address] [place] [address] 12/23/2024 4:00 PM CDT Office Visit [facility] 6545 [facility] 450 [place] [phone] Cyrus Aleman MD [address] [place] [address] [phone] 01/27/2025 10:00 AM CDT Office Visit [facility] Neurology [facility] [address] [place] [address] [address] [place] [phone] Anel Long, DIRECTOR APPOINTMENT [address] [place] [address] Coni Dhaliwal, COREY [address] [facility] [address] [place], [place] [address] 04/14/2025 11:15 AM CDT Office Visit [facility] Heart [facility] [address] [facility] [address] [place] [phone] Inessa Esteves DO [address] [place], [place] [address] 06/05/2025 12:30 PM CDT Office Visit [facility] Endocrinology Clinic [address] [phone] Stephie Mahoney MD [address] [place] [address] 745355 11/13/2025 11:00 AM CDT Virtual Visit [facility] Endocrinology Clinic [place] [address] [facility] 3rd [place] [phone] Stephie Mahoney MD [address] [place] [address] 844955 documented as of this encounter Visit Diagnoses Not on filedocumented in this encounter Care Teams Slitter Service And Setter Relationship Specialty [place] [address] [place] [address] PCP - General Family Practice 11/21/16 Stephie Mahoney MD [address] [place] [address] Endocrinology, Diabetes, and Metabolism 04/22/21 Federica Foster RN [address] [place] [address] Assistant Boys Track Coach Diabetes Education 04/22/[address] [place] [address] Assistant Boys Track Coach Nutrition 04/22/21 Stephie Mahoney MD [address] [place] [address] Assigned Endocrinology Provider 05/08/21 Olga Garcia RN Specialty Floor Layer Tile INTERNAL MEDICINE - ENDOCRINOLOGY, DIABETES & METABOLISM 09/29/22 Junior Chavira MD [address] [place] 5[address] Cardiovascular Disease 05/29/24 [place] [address] [address] [place], [place] [address] Assigned PCP 07/12/24 Junior Chavira MD [address] [place] 6065[address] Assigned Heart and Vascular Provider 08/11/24 Coni Dhaliwal CNP [address] [place] [address] Nurse Practitioner Psychiatry & Neurology Vascular Neurology 11/04/24 Anel Long NP [address] [place], [place] 0[address] Nurse Practitioner Psychiatry & Neurology Vascular Neurology 11/04/24 documented as of this encounter
--- OUTSIDE RECORDS SUMMARY | 2024-12-11 23:51 | XMS_ITS | Encounter Summary ---
Author Organization [place] Address [address] [place] [address]. [place] [address] Care Team Providers Care Mechanical Engineering Technologist Name Role Phone Wilber Vidales MD Primary Care Provider [phone] Stephie Mahoney MD Unavailable [phone] Federica Foster RN Unavailable [phone] Unavailable [phone] Stephie Mahoney MD Unavailable [phone] Olga Garcia RN Unavailable [phone] Junior Chavira MD Unavailable [phone] Shantel Walker MD Unavailable [phone] Junior Chavira MD Unavailable [phone] Coni Dhaliwal NEWS VIDEO EDITOR Unavailable [phone] Anel Long NP Unavailable [phone] Reason for Visit * Reason Comments Lung Nodule Pneumonia of both lo wer lobes due to infectous organism Encounter Details Date Type Department Care Team (Latest Contact Info) Description 12/01/2024 10:00 AM CDT Oncology Visit [facility] [address] [place] [address] [address] [facility] [place] [phone] Angel Balbuena MD [address] [place] [address] Pleural effusion (Primary Dx) Social History Tobacco Use Types [...] often do you attend chur ch or uatsdin services? 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 Vidales, I saw Santy Gelz in consultation for the evaluation and treatment of a loculated right pleuraleffusion. HPI Santy Glez is a 63 year old male patient who presents with a loculated right pleural effusion.He was admitted to the hospital on 10/12/2024 with a fall, left-sided weakness and hypoxia. He was found to have a right pleural effusion and was treated with antibiotics and eventually a chest tube. We administered intrapleural lytic therapy and cleared almost all of the effusion. Pleural fluid cultures were negative and he was treated with a 14-day course of antibiotics. Mr. Glez is feeling much better and breathing well. His energy levels are improving. He is offantibiotics and has no fevers. Previsit Tests CT scan (11/28/2024): Improved small right pleural effusion. Liver nodules increasing in size. PMH Reviewed, as below Past Medical History: Diagnosis Date Benign essential [...] 11/21/2016 Paroxysmal atrial fibrillation (H) Seizures (H) PSH Reviewed, as below Past Surgical History: Procedure Laterality Date APPENDECTOMY 1997 BIOPSY 2021 Basal cell carcinoma, Mohs surgery performed BRAIN SURGERY x2 COLONOSCOPY 2012 Polyps removed COLONOSCOPY N/A 05/14/2023 Procedure: Colonoscopy with polypectomy using jumbo forcep; Surgeon: Jazmyn Lord MD; Location: GI CV CORONARY ANGIOGRAM N/A 06/18/2019 Procedure: CV Coronary Angiogram; Surgeon: Juan Wu MD; Location: HEART CARDIAC [place] FORMER EYE SURGERY Lasik REPLACE VALVE AORTIC N/A 07/04/2019 Procedure: AORTIC VALVE REPLACEMENT WITH VALVE AORTIC PERIMOUNT MAGNA-EASE BIOPROSTH SIZE: 23MM ON PUMP OXYGENATOR AND CARLOS EDUARDO BY HALEY; Surgeon: jE Haines MD; Location: OR TONSILLECTOMY UVULECTOMY 1993 Allergies Allergen Reactions Carbamazepine Rash Phenobarbital Phenytoin Rash high fever Valproic Acid Rash Procarbazine Rash Sulfa Antibiotics Rash Current Outpatient Medications Medication Sig Dispense Refill [...] 100 UNITS/ML vial Uses about 80 units in pump daily 90 mL 3 Insulin Disposable Pump (OMNIPOD 5 G7 PODS, GEN 5,) MISC 1 pod See Admin Instructions. Change every3 days 30 each 3 insulin glargine (LANTUS PEN) 100 UNIT/ML pen Take 15 units daily if pump fails 15 mL 0 insulin syringe-needle U-100 (30G X 1/2 0.3 [...] mg) by mouth daily (with dinner). 90 tablet3 metoprolol succinate ER (TOPROL XL) 50 MG [...] tablet Take 50 mg by mouth daily No current facility-administered medications for this visit. ETOH: 2 drinks weekly TOBACCO: Never smoker Physical examination BP (!) 157/92 Pulse 67 Temp 97.1 ??F (36.2 ??C) (Tympanic) Resp 16 Ht 1.753 m (5' 9) Wt 84.4 kg (186 lb) SpO2 98% BMI 27.47 kg/m?? Physical Exam Constitutional: Appearance: Normal appearance. He is normal weight. Cardiovascular: Rate and Rhythm: Normal rate. Pulmonary: Effort: Pulmonary effort is normal. Skin: General: Skin is warm and dry. Neurological: Mental Status: He is alert and oriented to person, place, and time. Psychiatric: Mood and Affect: Mood normal. Behavior: Behavior normal. Thought Content: Thought content normal. Judgment: Judgment normal. From a personal perspective, he is here with his . IMPRESSION 63 year old male patient with a resolving parapneumonic effusion. He is doing quite well. PLAN I spent 10 min on the date of the encounter in chart review, patient visit, review of tests, documentation and/or discussion with other providers about the issues documented above. I reviewed the plan as follows: Increase activity as tolerated Follow up with PCP regarding the enlarging liver nodules. I appreciate the opportunity to participate in the care of your patient and will keep you updated. Sincerely, Angel Balbuena MD documented in this encounter Nursing Notes * Jodi Myers, SHARK BIOLOGIST - 12/01/2024 10:00 AM CDT Oncology Rooming Note December 01, 2024 10:04 AM Santy Glez is a 63 year old male who presents for: Chief Complaint Patient presents with Lung Nodule Pneumonia of both lower lobes due to infectous organism Initial Vitals: BP (!) 160/92 (Cuff Size: Adult Regular) Pulse 67 Temp 97.1 ??F (36.2 ??C) (Tympanic) Resp 16 Ht 1.753 m (5' 9) Wt 84.4 kg (186 lb) SpO2 98% BMI 27.47 kg/m?? Estimated body mass index is 27.47 kg/m?? as calculated from the following: Height as of this encounter: 1.753 m (5' 9). Weight as of this encounter: 84.4 kg (186 lb). Body surface area is 2.03 meters squared. Mild Pain (1) Comment: Data Unavailable No LMP for male patient. Allergies reviewed: Yes Medications reviewed: Yes Medications: Medication refills not needed today. Pharmacy name entered into [employer] Engine: [id number] - [place], [place] - [address] [place] [address] [facility] - [place], [place] - [address] Frailty Screening: Is the patient here for a new oncology consult visit in cancer care? 2. No PHQ9: Did this patient require a PHQ9?: No Clinical concerns: new patient Jodi Myesr CMA documented in this encounter Plan of Treatment Upcoming Encounters Date Type Department Care Team (Late st Contact Info) Description 12/17/2024 9:30 AM CDT Lab [facility] [address] [place] [address] 12/23/2024 4:00 PM CDT Office Visit [facility] [address] [place] [phone] Cyrus Aleman MD [address] [place] [address] 01/27/2025 10:00 AM CDT Office Visit [facility] Neurology [facility] [address] [place] [address] 200 [place] [phone] Anel Long, BEDSPREAD INSPECTOR [address] [place], [place] [address] Coni Dhaliwal, NEWS VIDEO EDITOR [address] [facility] 450 [place], [place] [address] 04/14/2025 11:15 AM CDT Office Visit [facility] [address] [facility] 140 [place] [phone] Inessa Esteves DO [address] [place], [place] [address] 06/05/2025 12:30 PM CDT Office Visit [facility] Endocrinology Clinic [address] [phone] Stephie Mahoney MD [address] [place] [address] 11/13/2025 11:00 AM CDT Virtual Visit [facility] Endocrinology Clinic [address] [phone] Stephie Mahoney MD [address] [place] [address] 634765 documented as of this encounter Visit Diagnoses Diagnosis Pleural effusion- Primary Unspecified pleural effusion documented in this encounter Care Teams Mechanical Engineering Technologist Relationship Specialty [place] [address] [place] [address] PCP - General Family Practice 11/21/16 Stephie Mahoney MD [address] [place] [address] Endocrinology, Diabetes, and Metabolism 04/22/21 Federica Foster RN [address] [place] [address] Adoption Manager Diabetes Education 04/22/[address] [place] [address] Adoption Manager Nutrition 04/22/21 Stephie Mahoney MD [address] [place] [address] Assigned Endocrinology Provider 05/08/21 Olga Garcia, RN Specialty Processing Associate INTERNAL MEDICINE - ENDOCRINOLOGY, DIABETES & METABOLISM 09/29/22 Junior Chavira MD [address] [place] [id number] Cardiovascular Disease 05/29/24 [place] [address] [address] Assigned PCP 07/12/24 Junior Chavira MD [address] [place] 857265 Assigned Heart and Vascular Provider 08/11/24 Coni Dhaliwal NEWS VIDEO EDITOR [address] [place] 150365 Nurse Practitioner Psychiatry & Neurology Vascular Neurology 11/04/24 Anel Long NP [address] [place] [address] [address] Nurse Practitioner Psychiatry & Neurology Vascular Neurology 11/04/24 documented as of this encounter
--- OUTSIDE RECORDS SUMMARY | 2024-12-11 23:51 | XMS_ITS | Encounter Summary ---
Author Organization [place] Address [address] [place] [address]. [place] [address] Care Team Providers Care Executive Relations Specialist Name Role Phone Wilber Vidales MD Primary Care Provider [phone] Wilber Vidales MD Unavailable Matt Baez MD Unavailable [phone] Wilber Vidales MD Unavailable Wilber Vidales MD Unavailable Stephie Mahoney MD Unavailable [phone] Federica Foster RN Unavailable [phone] Unavailable [phone] Stephie Mahoney MD Unavailable [phone] Olga Garcia RN Unavailable [phone] Matt Baez MD Unavailable Junior Chavira MD Unavailable [phone] Shantel Walker MD Unavailable [phone] Junior Chavira MD Unavailable [phone] Coni Dhaliwal CNP Unavailable [phone] Anel Long NP Unavailable [phone] Angel Balbuena MD Unavailable [phone] Encounter Details Date Type Department Care Team (Late st Contact Info) Description 06/26/2019 [facility] Medical Advice [facility] PHYS STANDARD [address] [place] [phone] Tiarra Poole, RN Social History Tobacco Use [...] Answer Date Recorded PHQ-2 Score 0 08/27/2018 [facility] [place] of Occupat ional Health - Occupational Stress [...] AM CDT 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 Neurology [facility] [address] [place] [address] 200 [place] [phone] Anel Long NP [address] [place], [place] 7675[address] Coni Dhaliwal CNP [address] [address] 04/14/2025 11:15 AM CDT Office [facility] Heart [facility] [address] [facility] [address] [place] [address] Inessa Esteves DO [address] [place] [address] 06/05/2025 12:30 PM CDT Office Visit [facility] Endocrinology [facility] [address] [place] [phone] Stephie Mahoney MD [address] [place] [address] 11/13/2025 11:00 AM CDT Virtual Visit [facility] Endocrinology [address] [phone] Stephie Mahoney MD [address] [place] [address] 404105 documented as of this encounter Visit Diagnoses Not on filedocumented in this encounter Additional Health Concerns Infection Onset Date Last Indicated Resolved Time Rule Out COVID-19 03/10/2022 03/10/2022 03/10/2022 1:37 AM CDT COVID-19 03/10/2022 03/10/2022 03/31/2022 11:3 9 PM CDT Rule Out COVID-19 10/12/2024 10/12/2024 10/12/2024 11:31 AM PNEUMATIC TOOL REPAIRER documented as of this encounter Care Teams Executive Relations Specialist Relationship Specialty [place] [address] [place] [address] PCP - General Family Practice 11/21/16 [place] [address] [place] [address] Assigned PCP 10/31/20 01/29/21 Matt Baez MD [address] [place] [address] Assigned Heart and Vascular Provider 06/11/20 06/23/22 [place] [address] [place] [address] Assigned PCP 11/02/16 10/30/20 [place] [address] [place] [address] Assigned PCP 01/30/21 07/11/24 Stephie Mahoney MD [address] [place] [address] 951285 Endocrinology, Diabetes, and Metabolism 04/22/21 Federica Foster RN [address] [place] [address] 289705 Steam Brush Operator Diabetes Education 04/22/[address] [place] [address] Steam Brush Operator Nutrition 04/22/21 Stephie Mahoney MD [address] [place] [address] Assigned Endocrinology Provider 05/08/21 Olga Garcia, RN Specialty Transfer Knitter INTERNAL MEDICINE - ENDOCRINOLOGY, DIABETES & METABOLISM 09/29/22 Matt Baez MD [address] [place] [address] Assigned Heart and Vascular Provider 12/23/22 05/04/23 Junior Chavira MD [address] [place], [place] 451185 Cardiovascular Disease 05/29/24 [place] [address] [address] [place], [place] 0[address] Assigned PCP 07/12/24 Junior Chavira MD [address] [place], [place] [address] Assigned Heart and Vascular Provider 08/11/24 Coni Dhaliwal CNP [address] [place] 8724[address] Nurse Practitioner Psychiatry & Neurology Vascular Neurology 11/04/24 Anel Long NP [address] [place] [address] Nurse Practitioner Psychiatry & Neurology Vascular Neurology 11/04/24 Angel Balbuena MD [address] [place] [address] 875475 Assigned Heart and Vascular Surgical Provider 12/10/24 documented as of this encounter
--- OUTSIDE RECORDS SUMMARY | 2024-12-11 23:51 | XMS_ITS | Encounter Summary ---
Author Organization [place] Address [address] [place] [address]. [place] [address] Care Team Providers Care Epic Anesthesia Analyst Name Role Phone Wilber Vidales MD Primary Care Provider [phone] Stephie Mahoney MD Unavailable [phone] Federica Foster RN Unavailable [phone] Unavailable [phone] Stephie Mahoney MD Unavailable [phone] Olga Garcia RN Unavailable [phone] Junior Chavira MD Unavailable [phone] Shantel Walker MD Unavailable [phone] Junior Chavira MD Unavailable [phone] Coni Dhaliwal CNP Unavailable [phone] Anel Long NP Unavailable [phone] Encounter Details Date Type Department Care Team (Latest Contact Info) Description 11/28/2024 Travel Social History Tobacco Use Types Packs/Day [...] often do you attend chur ch or evangelical services? 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 Gender Identity Male 03/03/2019 9:24 PM CDT Sexual Orientation Straight 03/03/2019 9: 24 PM CDT documented as of this encounter Plan of Treatment Upcoming Encounters Date Type Department Care Team (Late st Contact Info) Description 12/17/2024 9:30 AM CDT Lab [facility] [address] [place] [address] 12/23/2024 4:00 PM CDT Office Visit [place] [address] [place] [address] Cyrus Aleman MD [address] [place] [address] 01/27/2025 10:00 AM CDT Office Visit [facility] Neurology [address] [place] [address] Anel Long, TEACHER [employer] [address] [place] [address] Coni Dhaliwal, COREY [address] [place] [address]335 04/14/2025 11:15 AM CDT Office Visit [facility] Heart [facility] [address] [facility] [address] [place] [phone] Inessa Esteves DO [address] [place] [phone] 06/05/2025 12:30 PM CDT Office Visit [facility] Endocrinology Clinic [address] [phone] Stephie Mahoney MD [address] [place] [address] 11/13/2025 11:00 AM CDT Virtual Visit [facility] Endocrinology [address] [phone] Stephie Mahoney MD [address] [place] [address] 941015 documented as of this encounter Visit Diagnoses Not on filedocumented in this encounter Care Teams Epic Anesthesia Analyst Relationship Specialty [place] [address] [place] [address] PCP - General Family Practice 11/21/16 Stephie Mahoney MD [address] 407525 Endocrinology, Diabetes, and Metabolism 04/22/21 Federica Foster, RN [address] [place], [place] 114[address] Mortgage Field Inspector Diabetes Education 04/22/[address] [place] [address] 609094 Mortgage Field Inspector Nutrition 04/22/21 Stephie Mahoney MD [address] [place] [address] 144805 Assigned Endocrinology Provider 05/08/21 Olga Garcia RN Specialty Zoning Engineer INTERNAL MEDICINE - ENDOCRINOLOGY, DIABETES & METABOLISM 09/29/22 Junior Chavira MD [address] [place] [address]79[address] Cardiovascular Disease 05/29/24 [place] [address] [place] [address] Assigned PCP 07/12/24 Junior Chavira MD [address] [place] 644105 Assigned Heart and Vascular Provider 08/11/24 Coni Dhaliwal, DIE CUTTER OPERATOR [address] [place] [address] Nurse Practitioner Psychiatry & Neurology Vascular Neurology 11/04/24 Anel Long NP [address] [place] [address] [address] Nurse Practitioner Psychiatry & Neurology Vascular Neurology 11/04/24 documented as of this encounter
--- OUTSIDE RECORDS SUMMARY | 2024-12-11 23:51 | XMS_ITS | Encounter Summary ---
Author Organization [facility] Address [address] [place] [address]. [place] [address] Care Team Providers Care Children'S Tutor Nursery Name Role Phone Wilber Vidales MD Primary Care Provider [phone] Matt Baez MD Unavailable Wilber Vidales MD Unavailable Stephie Mahoney MD Unavailable Federica Foster RN Unavailable Tova Welch RD Unavailable [phone] Stephie Mahoney MD Unavailable Olga Garcia RN Unavailable [phone] Matt Baez MD Unavailable [phone] Junior Chavira MD Unavailable [phone] Shantel Walker MD Unavailable [phone] Junior Chavira MD Unavailable [phone] Coni Dhaliwal CNP Unavailable [phone] Anel Long NP Unavailable [phone] Angel Balbuena MD Unavailable [phone] Encounter Details Date Type Department Care Team (Late st Contact Info) Description 08/09/2021 MyC Medical Advice [facility] Diabetes Education [address] 3[address] [place] [address] Federica Foster, RN [address] [place] [address] Social History Tobacco Use Types Packs/Day Years [...] you attend [facility] or latter day services? 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 Gender Identity Male 03/03/2019 9:24 PM CDT Sexual Orientation Straight 03/03/2019 9: 24 PM CDT documented as of this encounter Plan of Treatment Upcoming Encounters Date Type Department Care Team (Late st Contact Info) Description 12/17/2024 9:30 AM CDT [facility] [address] [place] [address] 12/23/2024 4:00 PM CDT Office Visit [facility] 6545 [facility] [address] [place] [phone] Cyrus Aleman MD [address] [place] [address] 01/27/2025 10:00 AM CDT Office Visit [facility] Neurology [facility] [address] [place] [address] 200 [place] [phone] Anel Long, BAIT MAKER [address] [facility] [place] [place] [address] Coni Dhaliwal, ADJUNCT HISTORY INSTRUCTOR [address] [facility] 450 [place], [place] [address] 04/14/2025 11:15 AM CDT Office Visit [facility] Heart [facility] [address] [facility] [address] [place] [phone] Inessa Esteves DO [address] [facility] [address] [place], [place] [address] 06/05/2025 12:30 PM CDT Office Visit [facility] Endocrinology Clinic [address] [phone] Stephie Mahoney MD [address] [place] [address] 515985 11/13/2025 11:00 AM CDT Virtual Visit [facility] Endocrinology Clinic [address] [phone] Stephie Mahoney MD [address] [id number] documented as of this encounter Visit Diagnoses Not on filedocumented in this encounter Additional Health Concerns Infection Onset Date Last Indicated Resolved Time Rule Out COVID-19 03/10/2022 03/10/2022 03/10/2022 1:37 AM CDT COVID-19 03/10/2022 03/10/2022 03/31/2022 11:3 9 PM CDT Rule Out COVID-19 10/12/2024 10/12/2024 10/12/2024 11:31 AM PERSONAL CONSULTANT documented as of this encounter Care Teams Children'S Tutor Nursery Relationship Specialty [place] [address] [address] [address] PCP - General Family Practice 11/21/16 Matt Baez MD [address] [facility] [address] [place] [address] Assigned Heart and Vascular Provider 06/11/20 06/23/22 [place] [address] [address] [address] Assigned PCP 01/30/21 07/11/24 Stephie Mahoney MD [address] [address] Endocrinology, Diabetes, and Metabolism 04/22/21 Federica Foster, RN [address] [place], [place] [address] Paint Striping Machine Operator Diabetes Education 04/22/21 Tova Welch, OSCAR [address] [place] [address] Paint Striping Machine Operator Nutrition 04/22/21 Stephie Mahoney MD [address] [place] [facility] [address] [place], [place] [address] Assigned Endocrinology Provider 05/08/21 Olga Garcia, RN Specialty Jet Ski Mechanic INTERNAL MEDICINE - ENDOCRINOLOGY, DIABETES & METABOLISM 09/29/22 Matt Baez MD [address] [place], [place] [address] Assigned Heart and Vascular Provider 12/23/22 05/04/23 Junior Chavira MD [address] [place], [place] 4[address] Cardiovascular Disease 05/29/24 [place] [address] [place] [address] Assigned PCP 07/12/24 Junior Chavira MD [address] [place], [place] [address] Assigned Heart and Vascular Provider 08/11/24 Coni Dhaliwal CNP [address] [place], [place] [address] Nurse Practitioner Psychiatry & Neurology Vascular Neurology 11/04/24 Anel Long NP [address] [place] [address] Nurse Practitioner Psychiatry & Neurology Vascular Neurology 11/04/24 Angel Balbuena MD [address] [place] [address] Assigned Heart and Vascular Surgical Provider 12/10/24 documented as of this encounter
--- OUTSIDE RECORDS SUMMARY | 2024-12-11 23:51 | XMS_ITS | Encounter Summary ---
Author Organization [facility] Address [address] [place] [address]. [place] [address] Care Team Providers Care Funeral Greeter Name Role Phone Wilber Vidales MD Primary Care Provider [phone] Stephie Mahoney MD Unavailable [phone] Federica Foster RN Unavailable [phone] Unavailable [phone] Stephie Mahoney MD Unavailable [phone] Olga Garcia RN Unavailable [phone] Junior Chavira MD Unavailable [phone] Shantel Walker MD Unavailable [phone] Junior Chavira MD Unavailable [phone] Coni Dhaliwal CNP Unavailable [phone] Anel Long PROCESSOR SOLID PROPELLANT Unavailable [phone] Encounter Details Date Type Department Care Team (Latest Contact Info) Description 11/17/2024 Orders Only (auto-released) [place] [address] Medical Surgical [address] [place] [address] Anel Long, PROCESSOR SOLID PROPELLANT [address] [place] [address] 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 of right middle cerebral artery (H) Social History Tobacco Use Types Packs/Day [...] any clubs o r organizations such as jain groups, unions, fraternal or athletic groups, or [...] AM CDT 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 Gender Identity Male 03/03/2019 9:24 PM CDT Sexual Orientation Straight 03/03/2019 9: 24 PM CDT documented as of this encounter Plan of Treatment Upcoming Encounters Date Type Department Care Team (Late st Contact Info) Description 12/17/2024 9:30 AM CDT Lab [facility] Laboratory [address] [place] [phone] 12/23/2024 4:00 PM CDT Office Visit [facility] 6545 [facility] 450 [place] [phone] Cyrus Aleman MD [address] [place] [address] 693905 01/27/2025 10:00 AM CDT Office Visit [facility] Neurology [facility] [address] [place] [address] 200 [place] [phone] Anel Long, PROCESSOR SOLID PROPELLANT [address] [place], [place] [address] Coni Dhaliwal, FINANCIAL ADMINISTRATION OFFICER [address] [facility] 450 [place], [place] [address] 04/14/2025 11:15 AM CDT Office Visit [facility] Heart [facility] [address] [facility] [address] [place] [phone] Inessa Esteves DO [address] [place], [place] [address] 06/05/2025 12:30 PM CDT Office Visit [facility] Endocrinology [address] [place] [phone] Stephie Mahoney MD [address] [place] [address] 120[address] 11/13/2025 11:00 AM CDT Virtual Visit [facility] Endocrinology [address] [place] [phone] Stephie Mahoney MD [address] [address] Pending Results Name Type Priority Associated Diagnoses Date /Time ZIO PATCH MAIL OUT Zio Patch Mail Out Routine 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 of right middle cerebral artery (H) 12/10/2024 9:20 AM CDT documented as of this encounter Procedures Procedure Name Priority Date/Time Associated Diagnosis Comments ZIO PATCH MAIL OUT Routine 12/10/2024 9:20 AM CDT 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 of right middle cerebral artery (H) documented in this encounter Visit Diagnoses Diagnosis 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 of right middle cerebral artery (H) documented in this encounter Care Teams Funeral Greeter Relationship Specialty [place] [address] [place] [address] PCP - General Family Practice 11/21/16 Stephie Mahoney MD [address] [place] [address] Endocrinology, Diabetes, and Metabolism 04/22/21 Federica Foster, RN [address] [place] [address] Bread Wrapping Machine Feeder Diabetes Education 04/22/[address] [place] [address] Bread Wrapping Machine Feeder Nutrition 04/22/21 Stephie Mahoney MD [address] [place] [address] Assigned Endocrinology Provider 05/08/21 Olga Garcia, RN Specialty Director Of Technology INTERNAL MEDICINE - ENDOCRINOLOGY, DIABETES & METABOLISM 09/29/22 Junior Chavira MD [address] [place] [address] Cardiovascular Disease 05/29/24 [place] [address] [place] [address] Assigned PCP 07/12/24 Junior Chavira MD [address] [place] 6[address] Assigned Heart and Vascular Provider 08/11/24 Coni Dhaliwal, FINANCIAL ADMINISTRATION OFFICER [address] [place] [address] Nurse Practitioner Psychiatry & Neurology Vascular Neurology 11/04/24 Anel Long NP [address] [address]3455 Nurse Practitioner Psychiatry & Neurology Vascular Neurology 11/04/24 documented as of this encounter
--- OUTSIDE RECORDS SUMMARY | 2024-12-11 23:51 | XMS_ITS | Encounter Summary ---
Author Organization [facility] Address [address] [place] [address]. [place] [address] Care Team Providers Care Whiskey Filterer Name Role Phone Wilber Vidales MD Primary Care Provider [phone] Wilber Vidales MD Unavailable Matt Baez MD Unavailable [phone] Wilber Vidales MD Unavailable Wilber Vidales MD Unavailable Stephie Mahoney MD Unavailable [phone] Federica Foster RN Unavailable [phone] Unavailable [phone] Stephie Mahoney MD Unavailable [phone] Olga Garcia RN Unavailable [phone] Matt Baez MD Unavailable Junior Chavira MD Unavailable [phone] Shantel Walker MD Unavailable [phone] Junior Chavira MD Unavailable [phone] Coni Dhaliwal CNP Unavailable [phone] Anel Long NP Unavailable [phone] Angel Balbuena MD Unavailable [phone] Encounter Details Date Type Department Care Team (Late st Contact Info) Description 06/26/2019 MyC Medical Advice [facility] [place] [address] [facility] [address] [place] [address] Juan Wu MD [address] [facility] [address] [place] [address] Social History Tobacco Use Types Packs/Day Years [...] and Family Once a week 03/17/2019 Attends [employer] Services More than 4 times per year [...] Answer Date Recorded PHQ-2 Score 0 08/27/2018 [facility] [place] of Occupat ional Health - Occupational Stress [...] AM CDT 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 Gender Identity Male 03/03/2019 9:24 PM CDT Sexual Orientation Straight 03/03/2019 9: 24 PM CDT documented as of this encounter Plan of Treatment Upcoming Encounters Date Type Department Care Team (Late st Contact Info) Description 12/17/2024 9:30 AM CDT Lab [facility] [address] [place] [phone] 12/23/2024 4:00 PM CDT Office Visit [facility] [address] [place] [phone] Cyrus Aleman MD [address] [place] [address] 01/27/2025 10:00 AM CDT Office Visit [facility] Neurology [address] [place] [address] Anel Long, GETTER FILLER [address]3 [place], [place] [address] Coni Dhaliwal, COREY [address] [address] 04/14/2025 11:15 AM CDT Office Visit [facility] Heart [facility] [address] [facility] [address] [place] [address] Inessa Esteves [address] [place] [address] 06/05/2025 12:30 PM CDT Office Visit [facility] Endocrinology [address] [phone] Stephie Mahoney MD [address] [place] [address] 11/13/2025 11:00 AM CDT Virtual Visit [facility] Endocrinology [address] [phone] Stehpie Mahoney MD [address] [place] [address] 665175 documented as of this encounter Visit Diagnoses Not on filedocumented in this encounter Additional Health Concerns Infection Onset Date Last Indicated Resolved Time Rule Out COVID-19 03/10/2022 03/10/2022 03/10/2022 1:37 AM CDT COVID-19 03/10/2022 03/10/2022 03/31/2022 11:3 9 PM CDT Rule Out COVID-19 10/12/2024 10/12/2024 10/12/2024 11:31 AM CONTROL ROOM AGENT documented as of this encounter Care Teams Whiskey Filterer Relationship Specialty [place] [address] [address] [address] PCP - General Family Practice 11/21/16 [place] [address] [address] [address] Assigned PCP 10/31/20 01/29/21 Matt Baez MD [address] [facility] [address] [place] [address] Assigned Heart and Vascular Provider 06/11/20 06/23/22 [place] [address] [place] [address] Assigned PCP 11/02/16 10/30/20 [place] [address] [place] [address] Assigned PCP 01/30/21 07/11/24 Stephie Mahoney MD [address] [place] [address] Endocrinology, Diabetes, and Metabolism 04/22/21 Federica Foster, RN [address] [place] [address] Color Buffer Diabetes Education 04/22/[address] [place] [address] Color Buffer Nutrition 04/22/21 Stephie Mahoney MD [address] [place] [address] Assigned Endocrinology Provider 05/08/21 Olga Garcia RN Specialty Applications Coordinator INTERNAL MEDICINE - ENDOCRINOLOGY, DIABETES & METABOLISM 09/29/22 Matt Baez MD [address] [place], [place] [address] Assigned Heart and Vascular Provider 12/23/22 05/04/23 Junior Chavira MD [address] [place] [address] Cardiovascular Disease 05/29/24 [place] [address] [address] [place], [place] [address] Assigned PCP 07/12/24 Junior Chavira MD [address] [place] [address] Assigned Heart and Vascular Provider 08/11/24 Coni Dhaliwal, COREY [address] [place] [address] Nurse Practitioner Psychiatry & Neurology Vascular Neurology 11/04/24 Anel Long NP [address] [place], [place] [address] Nurse Practitioner Psychiatry & Neurology Vascular Neurology 11/04/24 Angel Balbuena MD [address] [facility] [place], [place] [address] Assigned Heart and Vascular Surgical Provider 12/10/24 documented as of this encounter
--- OUTSIDE RECORDS SUMMARY | 2024-12-11 23:51 | XMS_ITS | Encounter Summary ---
Author Organization [facility] Address [address] [place] [address]. [place] [address] Care Team Providers Care Adjunct Professor Of Voice Name Role Phone Wilber Vidales MD Primary Care Provider [phone] Stephie Mahoney MD Unavailable [phone] Federica Foster RN Unavailable [phone] Unavailable [phone] Stephie Mahoney MD Unavailable [phone] Olga Garcia RN Unavailable [phone] Junior Chavira MD Unavailable [phone] Shantel Walker MD Unavailable [phone] Junior Chavira MD Unavailable [phone] Coni Dhaliwal CNP Unavailable [phone] Anel Long NP Unavailable [phone] Reason for Referral * Diagnostic Imaging CT Scan (Routine) - Closed Specialty Diagnoses / Procedures Referred By Contac t Referred To Contact Radiology. Diagnoses Pneumonia of both lower lobes due to infectious organism Procedures CT Chest w Contrast Angel Balbuena MD [address] [place] [address] Phone: tel: fax: [facility] [address] [place] [address] Phone: tel: fax: Referral ID Status Reason Start Date Expiration Date Visits Re quested Visits Authorized [id number] Closed 10/28/2024 10/28/2025 1 1 Reason for Visit * Diagnostic Imaging CT Scan (Routine) - Closed Specialty Diagnoses / Procedures Referred By Contac t Referred To Contact Radiology. Diagnoses Pneumonia of both lower lobes due to infectious organism Procedures CT Chest w Contrast Angel Balbuena MD [address] [place] [address] Phone: tel: fax: [facility] [address] [place] [address] Phone: tel: fax: Referral ID Status Reason Start Date Expiration Date Visits Re quested Visits Authorized [id number] Closed 10/28/2024 10/28/2025 1 1 Encounter Details Date Type Department Care Team (Latest Contact Info) Description 11/28/2024 1:20 PM CDT - 11/28/2024 11:59 PM CDT Hospital Encounter [facility] [address] [facility] [address] [place] [phone] Angel Balbuena MD [address] [place] [address] Pneumonia of both lower lobes due to infectious organism Discharge Disposition: Home or Self Care Social [...] How often do you attend chur or baptism services? 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 10/26/2024 acetone urine (KETOSTIX) test stripIndications:T ype 1 diabetes mellitus with hyperglycemia (H) Use to check urine ketones in the event of pump failure or unexplained blood glucoses over 250 and not resolving. 25 strip 3 08/21/2022 apixaban ANTICOAGULANT (ELIQUIS) 5 MG tabletIndications: Ischemic stroke (H) Take 1 tablet (5 mg) by mouth 2 times daily. 180 tablet 1 11/04/2024 atorvastatin (LIPITOR) 40 MG tabletIndications: 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 of right middle cerebral artery (H) Take 1 tablet (40 mg) by mouth every evening. 10/27/2024 cholecalciferol (VITAMIN D3) 125 mcg (5000 units) capsule Take 125 mcg by mouth daily. Continuous Glucose Sensor (Zackfire[employer]com G7 SENSOR) MISCIndications:Ty pe 1 diabetes mellitus with hyperglycemia (H) Change every 10 days. 9 each 5 05/30/2024 ezetimibe (ZETIA) 10 MG tablet Take 10 mg by mouth every evening. insulin aspart (NOVOLOG VIAL) 100 UNITS/ML vialIndications:Ty pe 1 diabetes mellitus with hyperglycemia (H) Uses about 80 units in pump daily 90 mL 3 11/14/2024 Insulin Disposable Pump (OMNIPOD 5 G7 PODS, GEN 5,) MISCIndications:Ty pe 1 diabetes mellitus with hyperglycemia (H) 1 pod See Admin Instructions. Change every 3 days 30 each 3 06/02/2024 insulin glargine (LANTUS PEN) 100 UNIT/ML penIndications:Typ e 1 diabetes mellitus with hyperglycemia (H) Take 15 units daily if pump fails 15 mL 11/14/2024 insulin syringe-needle U-100 (30G X 1/2 0.3 ML) 30G X 1/2 0.3 ML miscellaneousIndic ations:Type 1 diabetes mellitus with hyperglycemia (H) Use in the event of pump failure and need to administer manual injection. 10 each 11 07/27/2021 LAMOTRIGINE PO Take 300 mg by mouth 2 times daily 06/21/2021 lisinopril (ZESTRIL) 30 MG tabletIndications: Benign essential hypertension Take 1 tablet (30 mg) by mouth daily. 90 tablet 1 06/16/2024 magnesium oxide (MAG-OX) 400 MG tabletIndications: Ischemic stroke (H) Take 1 tablet (400 mg) by mouth daily. Supplement 30 tablet 11/04/2024 Melatonin 10 MG TABS tablet Take 10 mg by mouth at bedtime. 01/19/2020 metFORMIN (GLUCOPHAGE) 500 MG tabletIndications: Elevated glucose Take 1 tablet (500 mg) by mouth daily (with dinner). 90 tablet 3 11/14/2024 metoprolol succinate ER (TOPROL XL) 50 MG 24 hr tabletIndications: Ischemic stroke (H) Take 1 tablet (50 mg) by mouth 2 times daily. 60 tablet 11/04/2024 Multiple Vitamins-Minerals (MENS MULTI VITAMIN & MINERAL PO) Take 1 tablet by mouth daily oxyCODONE (ROXICODONE) 5 MG tabletIndications: Ischemic stroke (H) Take 1 tablet (5 mg) by mouth 2 times daily as needed for severe pain. 20 tablet 11/04/2024 Psyllium (METAMUCIL FIBER PO) Take 1 Dose by mouth daily. sildenafil (VIAGRA) 100 MG tabletIndications: Vasculogenic erectile dysfunction, unspecified vasculogenic erectile dysfunction type Take 1 tablet (100 mg) by mouth daily as needed (30 minutes prior to sexual activity) 12 tablet 11 07/19/2023 vitamin C (ASCORBIC ACID) 1000 MG TABS Take 1 tablet by mouth daily 08/20/2020 zinc gluconate 50 MG tablet Take 50 mg by mouth daily 01/19/2020 tiZANidine (ZANAFLEX) 2 MG tabletIndications: Ischemic stroke (H) Take 1-2 tablets (2-4 mg) by mouth every 8 hours as needed for muscle spasms. 90 tablet 11/04/2024 amiodarone (PACERONE) 200 MG tabletIndications: Paroxysmal atrial fibrillation (H) Take 1 tablet (200 mg) by mouth daily for 14 days. 14 tablet 10/26/2024 5 documented as of this encounter Plan of Treatment Upcoming Encounters Date Type Department Care Team (Late st Contact Info) Description 12/17/2024 9:30 AM CDT Lab [facility] [address] [place] [address] 12/23/2024 4:00 PM CDT Office Visit [address] [phone] Cyrus Aleman MD [address] [place] [address] 994725 01/27/2025 10:00 AM CDT Office Visit [facility] [address] [place] [phone] Anel Long, PRECISION MILLWRIGHT [address] [place] [address] Coni Dhaliwal, TOW MOTOR DRIVER [address] [place] [address] 04/14/2025 11:15 AM CDT Office Visit [facility] [address] [facility] [address] [place] [phone] Yungjeromy Inessa Funes, [address] [place] [address] 06/05/2025 12:30 PM CDT Office Visit [facility] [address] [phone] Stephie Mahoney MD [address] [place] [address] 11/13/2025 11:00 AM CDT Virtual Visit [facility] Endocrinology [address] [phone] Stephie Mahoney MD [address] [place] [address] 166545 documented as of this encounter Procedures Procedure Name Priority Date/Time Associated Diagnosis Comments CT CHEST W CONTRAST Routine 11/28/2024 1 :52 PM CDT Pneumonia of both lower lobes due to infectious organism documented in this encounter Results * CT Chest w [...] CDT EXAM: CT CHEST W CONTRAST LOCATION: [facility] DATE: 11/28/2024 INDICATION: trapped lung COMPARISON: CT [...] 12/01/2024 EXAM: CT CHEST W CONTRAST LOCATION: [facility] DATE: 11/28/2024 INDICATION: trapped lung COMPARISON: CT [...] month CT chestfollow-up exam. Angel Balbuena MD IMG CT ORDERABLES Final Result documented in this encounter Visit Diagnoses Diagnosis Pneumonia of both lower lobes due to infectious organism documented in this encounter Administered Medications Inactive Administered Medications - up to 3 most recent administrations Medication Order MAR Action Action Date Dose Rate Site iopamidol (ISOVUE-370) solution 500 mL 500 mL, Intravenous, ONCE, On Sun11/28/24 at 1400, For 1 dose $Given 11/28/2024 1:44 PM CDT 91 mLs sodium chloride 0.9 % bag for CT scan flush Intravenous, 100 mL, ONCE, On Sun11/28/24 at 1400, For 1 dose, This entry is for use by Radiology to intermittently used as a flush in patients receiving a CT scan. $Given 11/28/2024 1:44 PM CDT 60 mLs documented in this encounter Care Teams Adjunct Professor Of Voice Relationship Specialty [place] [address] [place] [address] PCP - General Family Practice 11/21/16 Stephie Mahoney MD [address] [place] [address] Endocrinology, Diabetes, and Metabolism 04/22/21 Federica Foster, RN [address] [place] [address] Tail Board Worker Diabetes Education 04/22/[address] [facility] [place] [address] Tail Board Worker Nutrition 04/22/21 Stephie Mahoney MD [address] [address] Assigned Endocrinology Provider 05/08/21 Olga Garcia RN Specialty Crossing Supervisor INTERNAL MEDICINE - ENDOCRINOLOGY, DIABETES & METABOLISM 09/29/22 Junior Chavira MD [address] [place] [address] Cardiovascular Disease 05/29/24 [place] [address] [place] [address] Assigned PCP 07/12/24 Junior Chavira MD [address] [place] 380295 Assigned Heart and Vascular Provider 08/11/24 Coni Dhaliwal, TOW MOTOR DRIVER [address] [place] [address] Nurse Practitioner Psychiatry & Neurology Vascular Neurology 11/04/24 Anel Long, TARIK [address] [place] 930575 Nurse Practitioner Psychiatry & Neurology Vascular Neurology 11/04/24 documented as of this encounter
--- OUTSIDE RECORDS SUMMARY | 2024-12-11 23:51 | XMS_ITS | Encounter Summary ---
Author Organization [facility] Address [address] [place] [address]. [place] [address] Care Team Providers Care Database Programmer Analyst Name Role Phone Wilber Vidales MD Primary Care Provider [phone] Stephie Mahoney MD Unavailable [phone] Federica Foster RN Unavailable [phone] Unavailable [phone] Stephie Mahoney MD Unavailable [phone] Olga Garcia RN Unavailable [phone] Junior Chavira MD Unavailable [phone] Shantel Walker MD Unavailable [phone] Junior Chavira MD Unavailable [phone] Coni Dhaliwal CNP Unavailable [phone] Anel Long NP Unavailable Angel Balbuena MD Unavailable [phone] Encounter Details Date Type Department Care Team (Late st Contact Info) Description 11/20/2024 [facility] [place] [id number] [facility] 3rd [place] [address] Dinah Velazquez Social History Tobacco [...] How often do you attend chur or zoroastrian services? 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 Gender Identity Male 03/03/2019 9:24 PM CDT Sexual Orientation Straight 03/03/2019 9: 24 PM CDT documented as of this encounter Plan of Treatment Upcoming Encounters Date Type Department Care Team (Late st Contact Info) Description 12/17/2024 9:30 AM CDT [address] [address] 12/23/2024 4:00 PM CDT Office Visit [facility] [address] [facility] [address] [place] [phone] Cyrus Aleman MD [address] [place] [address] 01/27/2025 10:00 AM CDT Office Visit [facility] Neurology [facility] [address] [facility] [address] [place] [phone] Anel Long, LEVEL VIAL INSPECTOR AND TESTER [address] [place] [address] Coni Dhaliwal, NON DESTRUCTIVE EVALUATION MANAGER [address] [place] [address] 04/14/2025 11:15 AM CDT Office Visit [facility] Heart [facility] [address] [facility] [address] [place] [phone] Inessa Esteves DO [address] [place], [place] [address] 06/05/2025 12:30 PM CDT Office Visit [facility] [address] [address] Stephie Mahoney MD [address] [place] [address] 694235 11/13/2025 11:00 AM CDT Virtual Visit [facility] [address] [phone] Stephie Mahoney MD [address] [place] [address] documented as of this encounter Visit Diagnoses Not on filedocumented in this encounter Care Teams Database Programmer Analyst Relationship Specialty [place] [address] [place] [address] PCP - General Family Practice 11/21/16 Stephie Mahoney MD [address] [place] [address] 263595 Endocrinology, Diabetes, and Metabolism 04/22/21 Federica Foster, RN [address] [place] [address] [phone] Automation Specialist Diabetes Education 04/22/[address] [facility] [address] [id number] Automation Specialist Nutrition 04/22/21 Stephie Mahoney MD [address] [place] [address] 563085 Assigned Endocrinology Provider 05/08/21 Olga Garcia, RN Specialty Diesel Engine Pipe Fitter INTERNAL MEDICINE - ENDOCRINOLOGY, DIABETES & METABOLISM 09/29/22 Junior Chavira MD [address] [place] [address] Cardiovascular Disease 05/29/24 [place] [address] [place] [address] Assigned PCP 07/12/24 Junior Chavira MD [address] [place] [address] Assigned Heart and Vascular Provider 08/11/24 Coni Dhaliwal CNP [address] [place] [address] [place] [address] Nurse Practitioner Psychiatry & Neurology Vascular Neurology 11/04/24 Anel Long NP [address] [place] [address] Nurse Practitioner Psychiatry & Neurology Vascular Neurology 11/04/24 Angel Balbuena MD [address] [place], [place] [address] Assigned Heart and Vascular Surgical Provider 12/10/24 documented as of this encounter
--- OUTSIDE RECORDS SUMMARY | 2024-12-11 23:51 | XMS_ITS | Encounter Summary ---
Author Organization [facility] Address [address] [place] [address]. [place] [address] Care Team Providers Care Tree Trimmer Name Role Phone Wilber Vidales MD Primary Care Provider [phone] Wilber Vidales MD Unavailable Matt Baez MD Unavailable [phone] Wilber Vidales MD Unavailable Wilber Vidales MD Unavailable Stephie Mahoney MD Unavailable [phone] Federica Foster RN Unavailable [phone] Unavailable [phone] Stephie Mahoney MD Unavailable [phone] Olga Garcia RN Unavailable [phone] Matt Baez MD Unavailable Junior Chavira MD Unavailable [phone] Shantel Walker MD Unavailable [phone] Junior Chavira MD Unavailable [phone] Coni Dhaliwal CNP Unavailable [phone] Anel Long NP Unavailable [phone] Angel Balbuena MD Unavailable [phone] Encounter Details Date Type Department Care Team (Late st Contact Info) Description 06/26/2019 [facility] Medical Advice SH PHYS STANDARD [address] [place] [address] Tiarra Poole, RN Social History Tobacco Use [...] Answer Date Recorded PHQ-2 Score 0 08/27/2018 [facility] [place] of Occupat ional Health - Occupational Stress [...] AM CDT 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 [address] [place] [phone] Cyrus Aleman MD [address] [place] [address] 01/27/2025 10:00 AM CDT Office Visit [facility] Neurology [facility] [address] [place] [address] 200 [place] [phone] Anel Long NP [address] [place], [place] 8[address] Coni Dhaliwal CNP [address] [address] 04/14/2025 11:15 AM CDT Office Visit [facility] Heart [facility] [address] [facility] [address] [place] [address] Inessa Esteves DO [address] [place] [address] 06/05/2025 12:30 PM CDT Office Visit [facility] Endocrinology [facility] [address] [place] [address] [phone] Stephie Mahoney MD [address] [place] [address] 11/13/2025 11:00 AM CDT Virtual Visit [facility] Endocrinology [address] [phone] Stephie Mahoney MD [address] [place] [address] [phone] documented as of this encounter Visit Diagnoses Not on filedocumented in this encounter Additional Health Concerns Infection Onset Date Last Indicated Resolved Time Rule Out COVID-19 03/10/2022 03/10/2022 03/10/2022 1:37 AM CDT COVID-19 03/10/2022 03/10/2022 03/31/2022 11:3 9 PM CDT Rule Out COVID-19 10/12/2024 10/12/2024 10/12/2024 11:31 AM VOCATIONAL REHABILITATION CONSULTANT documented as of this encounter Care Teams Tree Trimmer Relationship Specialty [place] [address] [place] [address] PCP - General Family Practice 11/21/16 [place] [address] [place] [address] Assigned PCP 10/31/20 01/29/21 Matt Baez MD [address] [place] [address] Assigned Heart and Vascular Provider 06/11/20 06/23/22 [place] [address] [place] [address] Assigned PCP 11/02/16 10/30/20 [place] [address] [place] [address] Assigned PCP 01/30/21 07/11/24 Stephie Mahoney MD [address] [place] [address] 125135 Endocrinology, Diabetes, and Metabolism 04/22/21 Federica Foster RN [address] [place] [address] 044485 Cooker Loader Diabetes Education 04/22/[address] [place] [address] Cooker Loader Nutrition 04/22/21 Stephie Mahoney MD [address] [place] [address] Assigned Endocrinology Provider 05/08/21 Olga Garcia, RN Specialty Firer Kiln INTERNAL MEDICINE - ENDOCRINOLOGY, DIABETES & METABOLISM 09/29/22 Matt Baez MD [address] [place] [address] Assigned Heart and Vascular Provider 12/23/22 05/04/23 Junior Chavira MD [address] [place], [place] [address] Cardiovascular Disease 05/29/24 [place] [address] [place], [place] 97429[address] Assigned PCP 07/12/24 Junior Chavira MD [address] [place], [place] [address] Assigned Heart and Vascular Provider 08/11/24 Coni Dhaliwal CNP [address] [place] [phone] Nurse Practitioner Psychiatry & Neurology Vascular Neurology 11/04/24 Anel Long NP [address] [place] 2[address] Nurse Practitioner Psychiatry & Neurology Vascular Neurology 11/04/24 Angel Balbuena MD [address] [place] [address] 120595 Assigned Heart and Vascular Surgical Provider 12/10/24 documented as of this encounter
--- OUTSIDE RECORDS SUMMARY | 2024-12-11 23:51 | XMS_ITS | Encounter Summary ---
Author Organization [place] Address [address] [place] [address]. [place] [address] Care Team Providers Care Email Marketing Intern Name Role Phone Wilber Vidales MD Primary Care Provider [phone] Wilber Vidales MD Unavailable Matt Baze MD Unavailable [phone] Wilber Vidales MD Unavailable Wilber Vidales MD Unavailable Stephie Mahoney MD Unavailable [phone] Federica Foster RN Unavailable [phone] Unavailable [phone] Stephie Mahoney MD Unavailable [phone] Olga Garcia RN Unavailable [phone] Matt Baez MD Unavailable Junior Chavira MD Unavailable [phone] Shantel Walker MD Unavailable [phone] Junior Chavira MD Unavailable [phone] Coni Dhaliwal CNP Unavailable [phone] Anel Long NP Unavailable [phone] Angel Balbuena MD Unavailable Reason for Visit * Reason Onset Date Comments Pt. Information/instruction 06/26/2019 Aort ic Valve replacement Encounter Details Date Type Department Care Team (Late st Contact Info) Description 06/26/2019 MyC Medical Advice [facility] [address] [facility] [place] [address] [place] [address] [place] [address] Pt. Information/instruct ion (Aortic Valve ... 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 Gender Identity Male 03/03/2019 9:24 PM CDT Sexual Orientation Straight 03/03/2019 9: 24 PM CDT documented as of this encounter Plan of Treatment Upcoming Encounters Date Type Department Care Team (Late st Contact Info) Description 12/17/2024 9:30 AM CDT Lab [facility] [address] [place] [address] 12/23/2024 4:00 PM CDT Office Visit [place] [address] [place] [phone] Cyrus Aleman MD [address] [place] [address]885 01/27/2025 10:00 AM CDT Office Visit [facility] [address] [address] Anel Long, TURNER SPLITTER MACHINE OPERATOR [address] [facility] [place] [id number] Coni Dhaliwal, COREY [address] [place] [address] 04/14/2025 11:15 AM CDT Office Visit [facility] [address] [facility] [address] [place] [phone] Inessa Esteves DO [address] [place] [address] 06/05/2025 12:30 PM CDT Office Visit [facility] [address] [phone] Stephie Mahoney MD [address] [place] [address] 849755 11/13/2025 11:00 AM CDT Virtual Visit [facility] [address] [phone] Stephie Mahoney MD [address] [place] [address] 775435 documented as of this encounter Visit Diagnoses Not on filedocumented in this encounter Additional Health Concerns Infection Onset Date Last Indicated Resolved Time Rule Out COVID-19 03/10/2022 03/10/2022 03/10/2022 1:37 AM CDT COVID-19 03/10/2022 03/10/2022 03/31/2022 11:3 9 PM CDT Rule Out COVID-19 10/12/2024 10/12/2024 10/12/2024 11:31 AM MICROBIOLOGY MANAGER documented as of this encounter Care Teams Email Marketing Intern Relationship Specialty [place] [address] [address] [address] PCP - General Family Practice 11/21/16 [place] [address] [place] [address] Assigned PCP 10/31/20 01/29/21 Matt Baez MD [address] [place] [address] Assigned Heart and Vascular Provider 06/11/20 06/23/22 [place] [address] [address] [place] [address] Assigned PCP 11/02/16 10/30/20 [place] [address] [place] [address] Assigned PCP 01/30/21 07/11/24 Stephie Mahoney MD [address] [address] Endocrinology, Diabetes, and Metabolism 04/22/21 Federica Foster RN [address] [place] [address] [phone] Rn Ccu Diabetes Education 04/22/[address] [place] [address] 956194 Rn Ccu Nutrition 04/22/21 Stephie Mahoney MD [address] [address] Assigned Endocrinology Provider 05/08/21 Olga Garcia, RN Specialty Generation Manager INTERNAL MEDICINE - ENDOCRINOLOGY, DIABETES & METABOLISM 09/29/22 Matt Baez MD [address] [place] [address] Assigned Heart and Vascular Provider 12/23/22 05/04/23 Junior Chavira MD [address] [place] [address] Cardiovascular Disease 05/29/24 [place] [address] [place] [address] Assigned PCP 07/12/24 Junior Chavira MD [address] [place] [address] Assigned Heart and Vascular Provider 08/11/24 Coni Dhaliwal, DESK PEN SET ASSEMBLER [address] [place] [address] Nurse Practitioner Psychiatry & Neurology Vascular Neurology 11/04/24 Anel Long NP [address] [place] [address] Nurse Practitioner Psychiatry & Neurology Vascular Neurology 11/04/24 Angel Balbuena MD [address] [place], [place] [address] [address] Assigned Heart and Vascular Surgical Provider 12/10/24 documented as of this encounter
--- OUTSIDE RECORDS SUMMARY | 2024-12-11 23:51 | XMS_ITS | Encounter Summary ---
Author Organization [place] Address [address] [place] [address]. [place] [address] Care Team Providers Care Physician Industrial Name Role Phone Wilber Vidales MD Primary Care Provider [phone] Wilber Vidales MD Unavailable Stephie Mahoney MD Unavailable [phone] Federica Foster RN Unavailable [phone] Unavailable [phone] Stephie Mahoney MD Unavailable [phone] Olga Garcia RN Unavailable [phone] Junior Chavira MD Unavailable [phone] Shantel Walker MD Unavailable [phone] Junior Chavira MD Unavailable [phone] Coni Dhaliwal PROGRAM PROPOSALS COORDINATOR Unavailable [phone] Anel Long NP Unavailable [phone] Angel Balbuena MD Unavailable [phone] Encounter Details Date Type Department Care Team (Late st Contact Info) Description 06/10/2024 [facility] [place] [id number] [facility] [address] [place] [address] Olga Garcia, RN Social History [...] How often do you attend chur or hinduism services? 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 Gender Identity Male 03/03/2019 9:24 PM CDT Sexual Orientation Straight 03/03/2019 9: 24 PM CDT documented as of this encounter Plan of Treatment Upcoming Encounters Date Type Department Care Team (Late st Contact Info) Description 12/17/2024 9:30 AM CDT Lab [facility] [address] [place] [address] 12/23/2024 4:00 PM CDT Office Visit [facility] [address] [facility] [address] [place] [phone] Cyrus Aleman MD [address] [place] [address] 843775 01/27/2025 10:00 AM CDT Office Visit [facility] [address] [place] [address] [address] [place] [phone] Anel Long, MESSAGE BROKER DEVELOPER [address] [facility] [address] [place], [place] [address] Coni Dhaliwal CNP [address] [facility] [address] [place], [place] [address] 04/14/2025 11:15 AM CDT Office Visit [facility] [address] [facility] [address] [place] [phone] Inessa Esteves DO [address] [place], [place] 9[address] 06/05/2025 12:30 PM CDT Office Visit [facility] [address] [phone] Stephie Mahoney MD [address] [place] [address] 578285 11/13/2025 11:00 AM CDT Virtual Visit [facility] [address] [phone] Stephie Mahoney MD [address] [place] [address] documented as of this encounter Visit Diagnoses Not on filedocumented in this encounter Additional Health Concerns Infection Onset Date Last Indicated Resolved Time Rule Out COVID-19 10/12/2024 10/12/2024 10/12/2024 11:31 AM FACILITY ADMINISTRATOR documented as of this encounter Care Teams Physician Industrial Relationship Specialty [place] [address] [place] [address] PCP - General Family Practice 11/21/16 [place] [address] [address] [address] Assigned PCP 01/30/21 07/11/24 Stephie Mahoney MD [address] [place] [address] Endocrinology, Diabetes, and Metabolism 04/22/21 Federica Foster RN [address] [place] [address] Medical Transport Specialist Diabetes Education 04/22/[address] [place] [address] Medical Transport Specialist Nutrition 04/22/21 Stephie Mahoney MD [address] [place] [address] Assigned Endocrinology Provider 05/08/21 Olga Garcia RN Specialty Associate Store Leader INTERNAL MEDICINE - ENDOCRINOLOGY, DIABETES & METABOLISM 09/29/22 Junior Chavira MD [address] [place] 160815 Cardiovascular Disease 05/29/24 [place] [address] [place] [address] Assigned PCP 07/12/24 Junior Chavira MD [address] [place] 332995 Assigned Heart and Vascular Provider 08/11/24 Coni Dhaliwal CNP [address] [place] [id number] Nurse Practitioner Psychiatry & Neurology Vascular Neurology 11/04/24 Anel Long NP [address] [place] 463255 Nurse Practitioner Psychiatry & Neurology Vascular Neurology 11/04/24 Angel Balbuena MD [address] [place], [place] 530325 Assigned Heart and Vascular Surgical Provider 12/10/24 documented as of this encounter
--- OUTSIDE RECORDS SUMMARY | 2024-12-11 23:51 | XMS_ITS | Encounter Summary ---
Author Organization [place] Address [address] [place] [address]. [place] [address] Care Team Providers Care Land Examiner Name Role Phone Wilber Vidales MD Primary Care Provider [phone] Stephie Mahoney MD Unavailable [phone] Federica Foster RN Unavailable [phone] Unavailable [phone] Stephie Mahoney MD Unavailable [phone] Olga Garcia RN Unavailable [phone] Junior Cahvira MD Unavailable [phone] Shantel Walker MD Unavailable [phone] Junior Chavira MD Unavailable [phone] Coni Dhaliwal CNP Unavailable +[phone] Anel Long NP Unavailable [phone] Encounter Details Date Type Department Care Team (Late st Contact Info) Description 12/01/2024 Telephone [facility] [place] [address] [facility] [address] 3[address] [place] [address] Stephie Mahoney MD 420 [facility] [address] [place] [address] Social History Tobacco Use Types [...] often do you attend chur ch or hoahaoism services? 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 * Telephone Encounter - Mariama Ross CMA - 12/01/2024 11:04 AM CDT ----- Message from Olga Lang sent at 12/01/2024 10:51 AM CDT ----- ----- Message ----- From: Stephie Mahoney MD Sent: 12/01/2024 12:00 AM CDT To: [facility] Endocrinology Adult Csc Ask for cgm and pump data send to me to review documented in this encounter Plan of Treatment Upcoming Encounters Date Type Department Care Team (Late st Contact Info) Description 12/17/2024 9:30 AM CDT Lab [facility] [address] [place] [address] 12/23/2024 4:00 PM CDT Office Visit [address] [phone] Cyrus Aleman MD [address] [place] [address] 823045 01/27/2025 10:00 AM CDT Office Visit [facility] Neurology [address] [phone] nAel Long NP 9542 [place], [place] 628335 Coni Dhaliwal, COREY [address] [phone] 04/14/2025 11:15 AM CDT Office Visit [facility] Heart [address] [place] [phone] Inessa Esteves DO [address] [place], [place] 4055[address] 06/05/2025 12:30 PM CDT Office Visit [facility] [address] [address] Stephie Mahoney MD [address] [place] [address] 105415 11/13/2025 11:00 AM CDT Virtual Visit [facility] [address] [address] Stephie Mahoney MD [address] [place] [address] [phone] documented as of this encounter Visit Diagnoses Not on filedocumented in this encounter Care Teams Land Examiner Relationship Specialty [place] [address] [place] [address] PCP - General Family Practice 11/21/16 Stephie Mahoney MD [address] [place] [address] 645185 Endocrinology, Diabetes, and Metabolism 04/22/21 Federica Foster, RN [address] [place] [address] [phone] Mat Machine Operator Diabetes Education 04/22/21 Tova Welch, RD [facility] [address] [address] Mat Machine Operator Nutrition 04/22/21 Stephie Mahoney MD [address] [place] [address] [facility] 101 [place], [place] 881045 Assigned Endocrinology Provider 05/08/21 Olga Garcia, RN Specialty Desktop Specialist INTERNAL MEDICINE - ENDOCRINOLOGY, DIABETES & METABOLISM 09/29/22 Junior Chavira MD [address] [place] [address] Cardiovascular Disease 05/29/24 [place] [address] [place] [address] Assigned PCP 07/12/24 Junior Chavira MD [address] [place] [id number] Assigned Heart and Vascular Provider 08/11/24 Coni Dhaliwal, CONTRACT CLERK AUTOMOBILE [address] [place] 321195 Nurse Practitioner Psychiatry & Neurology Vascular Neurology 11/04/24 Anel Long NP [address] [place] 077435 Nurse Practitioner Psychiatry & Neurology Vascular Neurology 11/04/24 documented as of this encounter
--- OUTSIDE RECORDS SUMMARY | 2024-12-11 23:51 | XMS_ITS | Clinical Summary ---
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 Name Role Phone Lorraine Ricardo Unavailable Conditions or Problems Problem Name Problem Code Onset Date Status Entry Date Provider Comment Standard Description Annotate Memory loss 58137587 (SNOMED CT) 03/13 Active 03/13 Zaki Guajardo Jr, MD Amnesia Hypersomnia w/sleep apnea 26445270 (SNOMED CT) 03/13 Active 03/13 Zaki Guajardo Jr, MD Hypersomnia with sleep apnea Sleep deprivation 310491725 (SNOMED CT) 03/12 Active 03/12 Zaki Guajardo Jr, MD Sleep deprivation Tremor, left hand 88703010 (SNOMED CT) 09/20 Active 09/20 Chris Phan MD Tremor SNORING 84555952 (SNOMED CT) 05/12 Resolved 05/13 Chris Phan MD Snoring HYPERSOMNIA 07493747 (SNOMED CT) 09/24 Resolved 09/24 Chris Phan MD Hypersomnia Atheroscler osis, cerebral 94381486 (SNOMED CT) 11/14 Resolved 11/14 Chris Phan MD Cerebral atherosclerosi s Sleep maintenance insomnia G47.00 (ICD-10-CM ) Active Zaki Guajardo Jr, MD Insomnia, unspecified Medication monitoring 725587730 (SNOMED CT) 09/17 Active 09/17 Chris Phan MD Medication monitoring Basilar artery stenosis 80028637 (SNOMED CT) 09/17 Active 09/17 Chris Phan MD Basilar artery stenosis EFFECTS, RADIATION NOS T66 (ICD-10-CM ) 09/20 Resolved 04/18 Chris Phan MD Radiation sickness, unspecified DERMATITIS D/T TOPICAL DRUGS/MEDIC TIFFANIE L25.1 (ICD-10-CM ) 11/08 Resolved 11/08 Chris Phan MD Unspecified contact dermatitis due to drugs in contact with skin Spells 98858716 (SNOMED CT) 10/13 Resolved 10/13 Chris Phan MD Stupor SHOULDER PAIN 43566646 (SNOMED CT) 08/28 Resolved 08/29 Chris Phan MD Pain of shoulder region MIGRAINE NOS, INTRACTABLE G43.919 (ICD-10-CM ) 11/21 Resolved 11/21 Chris Phan MD Migraine, unspecified, intractable, without status migrainosus CLASSICAL MIGRAINE, NOT INTRACTABLE G43.109 (ICD-10-CM ) 11/21 Resolved 11/21 Chris Phan MD Migraine with aura, not intractable, without status migrainosus HEADACHE 26995622 (SNOMED CT) 11/02 Resolved 11/02 Chris Phan MD Headache NUMBNESS/TI NGLING LEFT SIDE, EPISODIC 782.0 (ICD-9-CM) 08/22 Resolved 08/22 Chris Phan MD Disturbance of skin sensation BENIGN NEOPLASM OF THE BRAIN 019239737 (SNOMED CT) 01/19 Resolved 01/21 Chris Phan MD History of benign neoplasm of brain OTHER POSTSURGICA L STATUS OTHER 300328036 (SNOMED CT) 01/19 Resolved 01/21 Chris Phan MD Postprocedural state finding 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, intractable , with status epilepticus G40.211 (ICD-10-CM ) 08/22 Active 08/22 Chris Phan MD Localization-r elated (focal) (partial) symptomatic epilepsy and epileptic syndromes with complex partial seizures, intractable, with status epilepticus Atheroscler osis, cerebral 27037800 (SNOMED CT) 11/14 Removed 11/14 Ervin Carvajal DO Cerebral atherosclerosi s Spells 07843386 (SNOMED CT) 10/13 Removed 10/13 Jacquie Rutledge DNP,RN CLINICAL COORDINATOR,CN P Stupor HYPERSOMNIA 88092432 (SNOMED CT) 09/24 Removed 09/24 Zaki Guajardo Jr, MD Hypersomnia SNORING 84779199 (SNOMED CT) 05/12 Removed 05/13 Zaik Guajardo Jr, MD Snoring OBSTRUCTIVE SLEEP APNEA (MOD; AHI 26; 73%; +7) G47.33 (ICD-10-CM ) 05/12 Active 05/13 Zaki Guajardo Jr, MD Obstructive sleep apnea (adult) (pediatric) OTHER POSTSURGICA L STATUS OTHER 873267356 (SNOMED CT) 01/19 Removed 01/21 Valerie Lomeli, [employer] Postprocedural state finding BENIGN NEOPLASM OF THE BRAIN 198582161 (SNOMED CT) 01/19 Removed 01/21 Valerie Lomeli, [employer] History of benign neoplasm of brain SHOULDER PAIN 42358043 (SNOMED CT) 08/28 Removed 08/29 Anthony Christiansen MD Pain of shoulder region MIGRAINE NOS, INTRACTABLE G43.919 (ICD-10-CM ) 11/21 Removed 11/21 Jacquie Rutledge DNP,RN CLINICAL COORDINATOR,CN P Migraine, unspecified, intractable, without status migrainosus CLASSICAL MIGRAINE, NOT INTRACTABLE G43.109 (ICD-10-CM ) 11/21 Removed 11/21 Jacquie Rutledge DNP,RN CLINICAL COORDINATOR,CN P Migraine with aura, not intractable, without status migrainosus HEADACHE 03736281 (SNOMED CT) 11/02 Removed 11/02 Jacquie Rutledge DNP,RN CLINICAL COORDINATOR,CN P Headache GENERALIZED TONIC CLONIC SEIZURES, INTRACTABLE G40.319 (ICD-10-CM ) 08/22 Correction 11/03 Jacquie M Rechtzigel DNP,RN CLINICAL COORDINATOR,CN P Generalized idiopathic epilepsy and epileptic syndromes, intractable, without status epilepticus GENERALIZED TONIC CLONIC SEIZURES, NOT INTRACTABLE G40.309 (ICD-10-CM ) 08/22 Inactive 08/22 Jac[facility]ie [facility] DNP,RN CLINICAL COORDINATOR,CN P Generalized idiopathic epilepsy and epileptic syndromes, not intractable, without status epilepticus NUMBNESS/TI NGLING LEFT SIDE, EPISODIC 782.0 (ICD-9-CM) 08/22 Removed 08/22 Jacquie Lang Aamir DNP,RN CLINICAL COORDINATOR,CN P Disturbance of skin sensation EFFECTS, RADIATION NOS T66 (ICD-10-CM ) 09/20 Removed 04/18 Anthony Christiansen MD Radiation sickness, unspecified DERMATITIS D/T TOPICAL DRUGS/MEDIC TIFFANIE L25.1 (ICD-10-CM ) 11/08 Removed 11/08 Anthony Christiansen MD Unspecified contact dermatitis due to drugs in contact with skin GENERALIZED TONIC CLONIC SEIZURES, INTRACTABLE G40.319 (ICD-10-CM ) 11/03 Removed 11/03 Anthony Christiansen MD Generalized idiopathic epilepsy and epileptic syndromes, intractable, 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 lamotrigine 09148031665 Chris Phan MD TIZANIDINE HCL 2 MG CAPS Take 1-2 capsule by mouth every night at bedtime as needed as directed for low back pain tizanidine 93275364326 Zaki Guajardo Jr, MD MODAFINIL 200 MG TABS Take 1 tablet by mouth twice a day as directed AM, lunchtime modafinil 71562408034 Zaki Guajardo Jr, MD LISINOPRIL 5 MG TABS Take 1 tablet (5 mg) by mouth 2 times daily lisinopril 20238254429 Zaki Guajardo Jr, MD MODAFINIL 200 MG TABS Take 1-2 tablets by mouth every morning as needed modafinil 87923601502 Zaki Guajardo Jr, MD ESZOPICLONE 3 MG TABS Take 0.5-1 tablet by mouth at bedtime; do not mix with alcohol or other sedatives eszopiclone 60626209936 Zaki Guajardo Jr, MD LISINOPRIL 20 MG TABS lisinopril 18198665575 Zaki Guajardo Jr, MD ESZOPICLONE 3 MG TABS Take 1 tablet by mouth at bedtime; do not mix with alcohol or other sedatives eszopiclone 10254389453 Zaki Guajardo Jr, MD MODAFINIL 200 MG TABS Take 1 tablet by mouth twice a day as directed AM, lunchtime modafinil 02521607511 Zaki Guajardo Jr, MD ESZOPICLONE 3 MG TABS Take 0.5-1 tablet by mouth at bedtime do not mix with alcohol or other sedatives eszopiclone 44928007623 Zaki Guajardo Jr, MD ESZOPICLONE 3 MG TABS Take 0.5-1 tablet by mouth at bedtime; do not mix with alcohol or other sedatives eszopiclone 46940762708 Zaki Guajardo Jr, MD LAMOTRIGINE 100 MG TABS TAKE ONE TABLET BY MOUTH TWICE DAILY. take with 200mg tablets. lamotrigine 22820410708 Chris Phan MD LAMOTRIGINE 200 MG TABS Take 1 tablet by mouth twice a day lamotrigine 72564234633 Chris Phan MD LAMOTRIGINE 200 MG TABS Take 1 tablet by mouth twice a day with 100 mg tablet, total 300 mg PO BID lamotrigine 22069043773 Chris Phan MD LAMOTRIGINE 100 MG TABS Take 1 tablet by mouth twice a day with with 200 mg tablets ( total 300 mg PO BID). lamotrigine 18752987074 Chris Phan MD LAMOTRIGINE 200 MG TABS Take 1 tablet by mouth twice a day lamotrigine 01537275306 Chris Phan MD ESZOPICLONE 3 MG TABS Take 0.5-1 tablet by mouth at bedtime do not mix with alcohol or other sedatives eszopiclone 76191924867 Sasha Vivas PA-C MODAFINIL 200 MG TABS Take 1-2 tablet by mouth every morning as needed modafinil 93068383072 Zaki Guajardo Jr, MD MODAFINIL 200 MG TABS Take 1-2 tablets by mouth every morning as needed modafinil 57318926811 Zaki Guajardo Jr, MD LAMOTRIGINE 100 MG TABS 1 PO BID ( with the 200 mg tablets) lamotrigine 67648383345 Chris Phan MD LAMOTRIGINE 100 MG TABS TAKE ONE TABLET BY MOUTH TWICE DAILY. take with 200mg tablets. lamotrigine 55004403448 Chris Phan MD ELIQUIS 5 MG TABS apixaban 37053176185 Chris Phan MD BAQSIMI ONE PACK 3 MG/DOSE POWD SPRAY 1 APPLICATION INTO NOSTRIL DAILY NEEDED glucagon 87064186970 Chris Phan MD Novolog U-100 Insulin aspart 100 unit/mL solution insulin aspart u-100 58355635940 Chris Phan MD METFORMIN HCL 500 MG TABS Take 2 tablets (1,000 mg) by mouth 2 times daily (with meals) metformin 19180144523 Chris Phan MD SILDENAFIL CITRATE 100 MG TABS TAKE ONE TABLET BY MOUTH EVERY DAY NEEDED sildenafil 52103392385 Chris Phan MD ATORVASTATIN CALCIUM 40 MG TABS atorvastatin 83425147526 Chris Phan MD LISINOPRIL 5 MG TABS Take 1 tablet (5 mg) by mouth 2 times daily lisinopril 54886472414 Chris Phan MD CARVEDILOL 12.5 MG TABS carvedilol 82045942308 Chris Phan MD ZALEPLON 10 MG CAPS zaleplon 97799456635 Chris Phan MD LAMOTRIGINE 200 MG TABS TAKE ONE TABLET BY MOUTH TWICE DAILY lamotrigine 22514453622 Chris Phan MD ESZOPICLONE 3 MG TABS Take 0.5-1 tablet by mouth at bedtime do not mix with alcohol or other sedatives eszopiclone 58228109361 Zaki Guajardo Jr, MD BAQSIMI ONE PACK 3 MG/DOSE POWD glucagon 24408109084 Zaki Guajardo Jr, MD ELIQUIS 5 MG TABS apixaban 95656189912 Zaki Guajardo Jr, MD LISINOPRIL 5 MG TABS lisinopril 46605705429 Zaki Guajardo Jr, MD CARVEDILOL 12.5 MG TABS TAKE ONE TABLET BY MOUTH TWICE DAILY WITH MEALS carvedilol 89091097578 Zaki Guajardo Jr, MD METFORMIN HCL 500 MG TABS TAKE 2 TABLETS BY MOUTH TWICE DAILY WITH MEALS metformin 26895136008 Zaki Guajardo Jr, MD ATORVASTATIN CALCIUM 40 MG TABS atorvastatin 58443559644 Zaki Guajardo Jr, MD AMOXICILLIN 500 MG CAPS TAKE 4 CASULES BY MOUTH 30 TO 60 MINUTES BEFORE PROCEDURE amoxicillin 00078630033 Zaki Guajardo Jr, MD MODAFINIL 200 MG TABS Take 1-2 tablet by mouth every morning as needed modafinil 64284538077 Zaki Guajardo Jr, MD MODAFINIL 200 MG TABS 1-2 tablet by mouth every morning as needed modafinil 61438482500 Zaki Guajardo Jr, MD ZALEPLON 10 MG CAPS 1 orally qhs prn for middle of the night awakenings (do not dose after 3am) ZALEPLON 14238513035 Chris Phan MD AMIODARONE HCL 200 MG TABS Take 2 tablets (400 mg) by mouth daily for 4 days, then decrease to 1 tablet (200 mg) daily AMIODARONE HCL 27273584576 Chris Phan MD WARFARIN SODIUM 5 MG TABS Take 1 tablet (5 mg) by mouth daily On 07/12 and 07/12 with INR to drawn on 07/13 then dosed per INR. WARFARIN SODIUM 35817283598 Chris Phan MD METOPROLOL SUCCINATE ER 25 MG [id number] Take 1.5 tablets (37.5 mg) by mouth 2 times daily METOPROLOL SUCCINATE 34305248478 Chris Phan MD LEVETIRACETAM 1000 MG TABS TAKE TWO TABLETS BY MOUTH TWICE DAILY LEVETIRACETAM 37882910913 Chris Phan MD CALCIUM-MAGNESIU M 500-250 MG ORAL TABLET one daily headache prevention CALCIUM-MAGNESI UM 08232158067 Zaki Guajardo Jr, MD LAMOTRIGINE 100 MG TABS 1 PO BID ( with the 200 mg tablets) LAMOTRIGINE 92678839754 Chris Phan MD NUVIGIL 250 MG TABS 1 orally QAM (monitor for rash); GUADALUPE ARMODAFINIL 90092403651 Zaki Guajardo Jr, MD LEVETIRACETAM 1000 MG TABS TAKE TWO TABLETS BY MOUTH TWICE DAILY LEVETIRACETAM 03664979983 Chris Phan MD NUVIGIL 250 MG TABS 1 orally QAM (monitor for rash); GUADALUPE ARMODAFINIL 16162694405 Zaki Guajardo Jr, MD LAMOTRIGINE 200 MG TABS TAKE ONE TABLET BY MOUTH TWICE DAILY LAMOTRIGINE 49204421717 Chris Phan MD RIBOFLAVIN 400 MG TABS One pill daily for migraine prevention RIBOFLAVIN 47455552838 Zaki Guajardo Jr, MD TROSPIUM CHLORIDE ER 60 MG [id number] TAKE 1 CAPSULE BY MOUTH DAILY. THIS REPLACES THE NON-COVERED VIAZ TROSPIUM CHLORIDE [id number] Zaki Guajardo Jr, MD LAMOTRIGINE 200 MG TABS 1 PO BID LAMOTRIGINE [id number] Chris Phan MD TROSPIUM CHLORIDE ER 60 MG [id number] TAKE 1 CAPSULE BY MOUTH DAILY. THIS REPLACES THE NON-COVERED TOVIAZ TROSPIUM CHLORIDE [id number] Tamera Locke LAMOTRIGINE 100 MG TABS 2 PO BID LAMOTRIGINE 39489382117 Anthony Christiansen MD CALCIUM-MAGNESIU M 500-250 MG ORAL TABLET one daily headache prevention CALCIUM-MAGNESI UM 48794047666 Jacquie Rutledge DNP,RN CLINICAL COORDINATOR,YELLOW PAGES SPACE SALESPERSON RIBOFLAVIN 400 MG TABS One pill daily for migraine prevention RIBOFLAVIN 08132091738 Jacquie Rutledge DNP,RN CLINICAL COORDINATOR,YELLOW PAGES SPACE SALESPERSON ASPIRIN CHILDRENS 81 MG CHEW 1 QD ASPIRIN 11205351696 Zaki Guajardo Jr, MD PLAVIX 75 MG TABS 1 po daily CLOPIDOGREL BISULFATE 72919100256 Zaki Guajardo Jr, MD HYDROCODONE-ACET AMINOPHEN 5-325 MG TABS 1 po Q 4 hours PRN HYDROCODONE-JOANA TAMINOPHEN 39293490203 Zaki Guajardo Jr, MD ZALEPLON 10 MG CAPS 1 orally QHS prn for middle of the night awakenings (do not dose after 3am) ZALEPLON 52805075774 Zaki Guajardo Jr, MD MODAFINIL 200 MG TABS 1-2 orally QAM prn MODAFINIL 93861461083 Zaki Guajardo Jr, MD PLAVIX 75 MG TABS 1 po daily CLOPIDOGREL BISULFATE 29045794324 Anthony Christiansen MD DOXAZOSIN MESYLATE 4 MG TABS One pill daily DOXAZOSIN MESYLATE 57203525056 Jacquie Rutledge DNP,RN CLINICAL COORDINATOR,YELLOW PAGES SPACE SALESPERSON DOXAZOSIN MESYLATE 4 MG TABS One pill daily DOXAZOSIN MESYLATE 86216486054 Jacquie Rutledge DNP,RN CLINICAL COORDINATOR,YELLOW PAGES SPACE SALESPERSON NUVIGIL 250 MG TABS 1 orally QAM ARMODAFINIL [id number] Jacquie Rutledge DNP,RN CLINICAL COORDINATOR,YELLOW PAGES SPACE SALESPERSON HYDROCODONE-ACET AMINOPHEN 5-325 MG TABS 1 po Q 4 hours PRN HYDROCODONE-JOANA TAMINOPHEN 58089704501 Anthony Christiansen MD NUVIGIL 250 MG TABS 1 orally QAM ARMODAFINIL 86447532529 Zaki Guajardo Jr, MD NUVIGIL 150 MG TABS 1/2 to 1 QAM ARMODAFINIL 36383631661 Zaki Guajardo Jr, MD NUVIGIL 150 MG TABS 1/2 to 1 QAM ARMODAFINIL 27648569737 Zaki Guajardo Jr, MD DOXAZOSIN MESYLATE TABS DOXAZOSIN MESYLATE TABS 74466895430 Anthony Christiansen MD LUNESTA 2 MG TABS one pill cost control supervisor awakening ESZOPICLONE 66885900652 Anthony Christiansen MD CALCIUM-MAGNESIU M 500-250 MG ORAL TABLET one daily headache prevention CALCIUM-MAGNESI UM 56173307854 Jacquie Rutledge DNP,RN CLINICAL COORDINATOR,YELLOW PAGES SPACE SALESPERSON RIBOFLAVIN 100 MG ORAL CAPSULE one daily Headache prevention RIBOFLAVIN 71196570412 Jacquie Rutledge DNP,RN CLINICAL COORDINATOR,YELLOW PAGES SPACE SALESPERSON VICODIN TAB 500-5MG one q4h severe migraine ACETAMINOPHEN-H YDROCODONE 33377088879 Anthony Christiansen MD LUNESTA 2 MG TABS one pill cost control supervisor awakening ESZOPICLONE 93388626702 Anthony Christiansen MD DOXAZOSIN MESYLATE TABS DOXAZOSIN MESYLATE TABS 04534939968 Zaki Guajardo Jr, MD TRILEPTAL 600 MG TABS one twice a day OXCARBAZEPINE 40746041543 Anthony Christiansen MD HYDROCODONE-ACET AMINOPHEN 5-325 MG TABS 1-2 po q4-6h prn severe headache HYDROCODONE-JOANA TAMINOPHEN 66122507144 Anthony Christiansen MD MIDRIN 325-65-100 MG CAPS 2 po prn APAP-ISOMETHEPT PRANAY-DICHLORAL 10139585123 Jacquie Rutledge DNP,RN CLINICAL COORDINATOR,YELLOW PAGES SPACE SALESPERSON KEPPRA 1000 MG TABS 2 pills twice daily LEVETIRACETAM 70491153862 Chris Phan MD HYDROCODONE-ACET AMINOPHEN 5-325 MG TABS 1-2 po q4-6h prn severe headache HYDROCODONE-JOANA TAMINOPHEN 86642502648 Anthony Christiansen MD AMITRIPTYLINE HCL 10 MG TABS Take 1-3 pills every early evening AMITRIPTYLINE HCL 47632076201 Anthony Christiansen MD UROXATRAL 10 MG [id number] 1 po qd ALFUZOSIN HCL 91382060300 Jacquie Rosadoigel DNP,RN CLINICAL COORDINATOR,YELLOW PAGES SPACE SALESPERSON RHINOCORT AQUA 32 MCG/ACT NASAL SUSPENSION one spray each nostril twice a day BUDESONIDE (NASAL) 20874742331 Jacquie Rosadoigel DNP,RN CLINICAL COORDINATOR,YELLOW PAGES SPACE SALESPERSON AMITRIPTYLINE HCL 10 MG TABS Take 1-3 pills every early evening AMITRIPTYLINE HCL 72259690496 Jacquie Rosadoigel DNP,RN CLINICAL COORDINATOR,YELLOW PAGES SPACE SALESPERSON MIDRIN 325-65-100 MG CAPS 2 po prn APAP-ISOMETHEPT PRANAY-DICHLORAL 74324710579 Anthony Christiansen MD MIDRIN CAP one to two for migraine NOT GENERIC APAP-ISOMETHEPT PRANAY-DICHLORAL 19534666318 Anthony Christiansen MD KEPPRA 750 MG TABS take as directed LEVETIRACETAM 93556950409 Silvia Lopez RN UROXATRAL 10 MG [id number] 1 po qd ALFUZOSIN HCL 84108119690 Anthony Christiansen MD MIDRIN CAP one to two for migraine NOT GENERIC APAP-ISOMETHEPT PRANAY-DICHLORAL 63369052196 Anthony Christiansen MD FIORICET TAB one as needed for parker during work ACETAMINOPHEN-C AFF-BUTALBITAL 64370073317 Anthony Chrisitansen MD FIORICET TAB one as needed for parker during work ACETAMINOPHEN-C AFF-BUTALBITAL 54580575914 Anthony Christiansen MD KEPPRA 1000 MG TAB twice a day KEPPRA 1000 MG TAB Anthony Christiansen MD TRILEPTAL 300MG 1 QID TRILEPTAL 300MG Anthony Christiansen MD KEPPRA 500 MG TABS 4 tabs BID LEVETIRACETAM 40796895272 Anthony Christiansen MD KEPPRA 1000 MG TAB twice a day KEPPRA 1000 MG TAB Anthony Christiansen MD TRILEPTAL 600 MG TABS one twice a day OXCARBAZEPINE 75047016022 Anthony Christiansen MD KEPPRA 500 MG TABS take as directed. LEVETIRACETAM 71219016712 Anthony Christiansen MD KEPPRA 750 MG TABS take as directed LEVETIRACETAM 64918823667 Anthony Christiansen MD KEPPRA 250 MG TABS one half tid and full hs LEVETIRACETAM 56204324728 Dinah Franco KEPPRA 250 MG TABS one half tid and full hs LEVETIRACETAM 06859832036 Anthony Christiansen MD NEURONTIN 400 MG CAPS 1200mg am, 1200mg afternoon, 400hs GABAPENTIN 98200833253 Jacquie Rutledge DNP,RN CLINICAL COORDINATOR,YELLOW PAGES SPACE SALESPERSON DECADRON TABS 0.5 MG 1 po BID DEXAMETHASONE 97049824887 Jacquie Rutledge DNP,RN CLINICAL COORDINATOR,YELLOW PAGES SPACE SALESPERSON RHINOCORT AQUA 32 MCG/ACT NASAL SUSPENSION one spray each nostril twice a day BUDESONIDE (NASAL) 54907628397 Anthony Christiansen MD KEPPRA 750 MG TABS po tid LEVETIRACETAM 96274142966 Anthony Christiansen MD KEPPRA 750 MG TABS one QD LEVETIRACETAM 06589847437 Anthony Christiansen MD KEPPRA 500 MG TABS as directed LEVETIRACETAM 24598731999 Anthony Christiansen MD NEURONTIN 400 MG CAPS 1200mg am, 1200mg afternoon, 400hs GABAPENTIN 02438720216 Anthony Christiansen MD MASON-D TBCR 60-120 MG 1 po qd FEXOFENADINE-PS EUDOEPHEDRINE 87821568214 Anthony Christiansen MD NEURONTIN 400 MG CAPS 1200mg am, 1200mg afternoon, 1600mg hs GABAPENTIN 10165999802 Anthony Christiansen MD TRILEPTAL 300MG 1 QID TRILEPTAL 300MG Anthony Christiansen MD TRILEPTAL 150MG 300mg QID TRILEPTAL 150MG Anthony Christiansen MD DECADRON TABS 0.5 MG 1 po BID DEXAMETHASONE 63074709628 Anthony Christiansen MD TRILEPTAL 150MG 300mg BID TRILEPTAL 150MG Dayana Magallanes TRILEPTAL 150 MG tid TRILEPTAL 150 MG Anthony Christiansen MD NEURONTIN 600 MG TABS 4000 mg per day GABAPENTIN 51385384596 Anthony Christiansen MD DECADRON TABS 0.5 MG as directed DEXAMETHASONE 68864589136 Anthony Christiansen MD DEPAKOTE SPRINKLES 125 MG CSDR 500mg qam, qhs 250mg afternoon DIVALPROEX SODIUM 47943911771 Anthony Christiansen MD DEPAKOTE SPRINKLES 125 MG CSDR 500mg qam, qhs 250mg afternoon DIVALPROEX SODIUM 02704392603 Dayana Magallanes DEPAKOTE SPRINKLES 125 MG CSDR 500mg qd DIVALPROEX SODIUM 56004617619 Dayana Magallanes DEPAKOTE SPRINKLES 125 MG CSDR 1 tid DIVALPROEX SODIUM 66024245459 Anthony Christiansen MD Medications Administered No information available. Allergies, Adverse Reactions, Alerts Allergy Name Reaction Description Start Date Severity Statu s Provider TEGRETOL Dermatological problems, e.g., rash, hives Critical Active Anthony espinoza MD TEGRTOL Critical No Longer Active Anthony Christiansen MD PHENOBARBITAL Critical Active Jacquie Rutledge DNP,RN CLINICAL COORDINATOR,YELLOW PAGES SPACE SALESPERSON DEPAKOTE Dermatological problems, e.g., rash, hives Critical Active Jacquie Rutledge DNP,RN CLINICAL COORDINATOR,YELLOW PAGES SPACE SALESPERSON TEGRTOL Critical No Longer Active Anthony Christiansen MD DILANTIN Critical Active Anthony Christiansen MD SULFA Critical Active Anthony Christiansen MD Results Date Name Value Unit Range Flag Description Lab Report: Lab Entry VALPROIC ACD 79 ug/mL Valproat e [Mass/volume] in Serum or Plasma GGT 17 U/L gamma glutamy l transferase, serum Internal Correspondence: Bot ox Order EMG No electromyogra phy Lab Report: CBC AND DIFFEREN TIAL MONOS % MANU 6.4 % < 11.1 monocyte s as percent of blood leukocytes, manual count LYMPH % MANU 29.5 % 25.0-45. 0 lymphocytes as percent of blood leukocytes, manual count PMN SEGS 61.5 % 50.0-70. 0 neutrophils, segmented as percent of blood leukocytes Lab Report: LIPID PANEL CHOL/HDL % 3.43 < 4.51 cholestero l/HDL ratio, serum, percent TRIGLYCERIDE 94 mg/dL 40-149 Triglyce ride [Mass/volume] in Serum or Plasma - mg/dL Office Visit: chart note LABS ORDERED CBC, Lytes, Bun, Creat, Liver Profile.Calcium Magnesium Sed Rate Keppra an trileptal levels..(lab order given to pt, pt will make own appt)....burgess. ..............jh Laboratory tests ordered Internal Correspondence: Rec ord Request/Film Request/Chart Summary MICHELE XR SD DT 11/01/2011 HIPAA release of information, xray and imaging, sent date Lab Report: HEPATIC FUNCTION PANEL ANION GAP 9 5-18 Anion gap 4 in Serum or Plasma Lab Report: ROLLY(SCREEN) ROLLY Negative (Negativ e) Nuclear Ab [Units/volume] in Serum by Immunoassay Lab Report: Low Sodium, Low Chloride TEGRETOL * ug/mL carBAMazepin e [Mass/volume] in Serum or Plasma CO2 27 mmol/L 19-28 Carbon dioxid e, total [Moles/volume] in Venous blood CBC COMMENTS * complete blood count (CBC), comments IMM GRANU % * % Immature granulocytes/100 leukocytes in Blood BASO# * Basophils [#/volume] in Blood EOS ABSLT * 10*3/uL Eosinophils [#/volume] in Blood % EOS AUTO * % Eosinophil s/100 leukocytes in Blood by Automated count Replaced Document: (P) Hepat ic Function Panel (7), Oxcarbazepine (Trileptal),S, ... OXCARBAZEPIN * ug/mL carBAMaz epine [Mass/volume] in Serum or Plasma Clinical Lists Update: Metho d of Contact METHCONTACT secmsg Patient's prefered method of contact Lab Report: Lipid Panel With LDL/HDL Ratio LDL (CALCUL) 117 mg/dL 0-99 H Choleste rol in LDL [Mass/volume] in Serum or Plasma by calculation VLDL 13 mg/dL 5-40 Cholesterol i n VLDL [Mass/volume] in Serum or Plasma TRIGLYC TOT 66 mg/dL 0-149 Triglycer jesus [Mass/volume] in Serum or Plasma - mg/dL CHOLESTEROL 183 mg/dL 100-199 Cholester ol [Mass/volume] in Serum or Plasma - mg/dL Replaced Document: (P) LIPID PANEL WITH RATIOS, HDL CHOLESTEROL, TRIGLYCERIDES, ... VITD 25OH TO * VITAMIN D, 25 OH, TOTAL TSHREFLX FT4 * m[iU]/L TSH (thy roid stimulating hormone) with reflex FT4 B-12 * pg/mL Cobalamin (Vi tamin B12) [Mass/volume] in Serum or Plasma ANTICARD IGM * cardioli pin antibody, IgM CARDIOLIPIN * U anti-card iolipin antibody, serum ANTICARD IGA * cardioli pin antibody, IgA SSB * Sjogren's syndrome-B, extractable nuclear Ab, serum SSA * Sjogren's syndrome-A, extractable nuclear Ab, serum RHEUMOT FACT * [iU]/mL Rheumato id factor [Units/volume] in Serum or Plasma ANASCR IFA * ROLLY SCREEN , IFA ESR 2 mm/h < OR = 20 N Erythrocyte sedimentation rate by Westergren method VIT B6 * VITAMIN B6, P LASMA CPK * U/L Creatine crow se [Enzymatic activity/volume] in Serum or Plasma BILI INDIREC * mg/dL bilirubi n, serum, indirect BILI DIRECT * mg/dL Bilirubin .direct [Mass/volume] in Serum or Plasma MAGNESIUM * mg/dL Magnesium [Moles/volume] in Serum or Plasma INTRP * Interpretatio n ABNPROTBND3 * g/dL Abnormal Protein Band 3, g/dL ABNPROTBND2 * g/dL Abnormal Protein Band 2, g/dL ABNPROTBND * g/dL Abnormal P rotein Band 1, g/dL GAMMA GLOB * mg/dL Gamma glob ulin [Mass/volume] in Serum or Plasma by Electrophoresis [id number] * g/dL beta 2 g lobulin [id number] * g/dL beta 1 g lobulin ALPHA 2 GLOB * Alpha 2 globulin [Mass/volume] in Serum or Plasma by Electrophoresis ALPH-1 SR PE * g/dL alpha-1 globulin, serum, by protein electrophoresis ALBUM SER PE * g/dL albumin, serum by protein electrophoresis C-LDL/C-HDL * LDL/HDL r atio, serum CHOL/HDL * cholesterol/ HDL ratio, serum LDL * mg/dL Cholesterol i n LDL [Mass/volume] in Serum or Plasma - mg/dL TRIGLYCRDES * mg/dL Triglycer jesus [Mass/volume] in Serum or Plasma - mg/dL HDL * mg/dL Cholesterol i n HDL [Mass/volume] in Serum or Plasma - mg/dL NON-HDL CHOL * mg/dL choleste rol, non-HDL, total Lab Report: (P) COMPREHENSIV E METABOLIC PANEL, PSA, POST-PROSTATECTOMY, ... TESTO, FREE * pg/mL Testoster one Free [Mass/volume] in Serum or Plasma TESTOSTRNTOT * testoste marisol level, total HGBA1C * % Hemoglobin A1c/Hemoglobin, total in Blood - % 10-HYCARB * 10-Hydroxyc arbazepi ne [Mass/volume] in Blood COMMENTS * comments AUTONUC RBC * /100{WB C} Nucleated RBC BLAST % * % blasts as per cent of blood leukocytes REACT LYMPH% * % reactive lymphocytes, blood, as percent of total leukocytes PROMYELO % * % promyelocy rhett as percent of blood leukocytes MYELOCYTE % * % myelocyte s as percent of blood leukocytes METAMYELO % * % metamyelo cytes as percent of blood leukocytes BANDS CT * 10*3/mm 3 neutrophil count, band form, blood NUCLEATRBCAB * ABSOLUTE NUCLEATED RBC BLASTS * blast count, blood PROMYELO CT * 10*3/mm 3 promyelocyte count, blood MYELOCYTES * 10*3/mm 3 Myelocytes [#/volume] in Blood by Manual count METAMYELO CT * 10*3/mm 3 metamyelocyte count, blood ABS BANDS * {Cells} /uL Absolute Band Neutrophil count SGPT (ALT) 32 U/L 9-46 N Alanine aminotransferase [Enzymatic activity/volume] in Serum or Plasma AST_SGOT 17 10-35 N Aspartate aminotransferase [Enzymatic activity/volume] in Serum or Plasma ALK PHOS 76 U/L 40-115 N Alkaline phosphatase [Enzymatic activity/volume] in Blood BILI TOTAL 0.5 mg/dL 0.2-1.2 N Bilirubin. total [Mass/volume] in Serum or Plasma A/G RATIO 2.3 (calc) 1.0-2.5 N Albumin/ Globulin [Mass Ratio] in Serum or Plasma GLOBULIN TOT 1.8 G/DL (CALC) g/dL 1.9-3.7 L Globulin [Mass/volume] in Serum ALBUMIN 4.2 g/dL 3.6-5.1 N Albumin [Mass/volume] in Serum or Plasma PROTEIN, TOT 6.0 g/dL 6.1-8.1 L Protein [Mass/volume] in Serum or Plasma Internal Other: Authorizatio n - OBS PTSTAUTHDT 1 N PT Startin g Authorization Date Office Visit: 08/08/16 12:42 REFERRING PHYSICIAN NAME: ANTHONY CHRISTIANSEN [facility] Fall Risk Screening completed. Fall risk assessment Rx Refill: eRx Request for M ODAFINIL 200 MG TABLET ESM_RR [id number]`MODAF INIL 200 MG TABLET```180 Tablet`30`TAKE 1-2 TABLETS BY MOUTH EVERY MORNING FOR PAIN.`This request is for a new prescription for a controlled substance as required by Federal/State law.``0`01/25/20 16`No date sent`[facility]`[id number]`` MODAFINIL 200 MG TABLET Quantity: 180 Tablet Instructions: TAKE 1-2 TABLETS BY MOUTH EVERY MORNING FOR PAIN. B e-scripts abelardo pacheco refill request Office Visit: 1 YEAR 7 12:31- 08/08/17 12:31 REFERRING PHYSICIAN NA... 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 PHQ9 SEVRSCR No Depression Ad olescent depression screening assessment PHQ22 No Adolescent depression screening assessment PHQ21 No Adolescent depression screening assessment Replaced Document: (P) AST, BASIC METABOLIC PANEL, CBC (INCLUDES DIFF/PLT), LEV ... LEVETIRACETM * ug/mL levETIRA cetam [Mass/volume] in Serum or Plasma Replaced Document: (P) AST, BASIC METABOLIC PANEL, CBC (INCLUDES DIFF/PLT), REYNOLDS ... NEUT CT MANU 2735 CELLS/UL 10*3/mm 3 1500-780 0 N neutrophil count, blood, manual CALCIUM * mg/dL Calcium [Moles/volume] in Serum or Plasma EGFR IF AFA * mL/min/ 1.73m2 Glomerular filtration rate/1.73 sq M.predicted among blacks [Volume Rate/Area] in Serum, Plasma or Blood by Creatinine-based formula (MDRD) EGFR NOT AFA * mL/min/ 1.73m2 Glomerular filtration rate/1.73 sq M.predicted among non-blacks [Volume Rate/Area] in Serum, Plasma or Blood by Creatinine-based formula (MDRD) Internal Other: Verbal Autho rization/Emergency Contact - OBS VERBAL_EMER DONE Verbal authorization and emergency contact Lab Report: DRUG MONITORING, URINE---NEG DRUGSCRNOXID NEGATIVE <200 N Drug Sc reen - Oxidant CREATININE U 152.1 MG/DL > or = 20.0 N Creatinine [Mass/volume] in Urine OXYCODONE NEGATIVE <100 N Oxycodone urine screening OPIATES UR NEGATIVE <100 N Opiates [ Presence] in Urine THC URINE NEGATIVE ng/mL <20 N Cannabinoi ds [Presence] in Urine by Screen method U 6AM NEGATIVE ng/mL <10 N 6-Acetylmorp jonathan, Urine Quant COCAIN METAB NEGATIVE ng/mL <150 N Benzoyl ecgonine [Presence] in Urine by Screen method BUPRENO UR NEGATIVE <5 N Buprenorp jonathan, Urine BENZODIAZ UR NEGATIVE <100 N Benzodi azepines [Presence] in Urine Clinical Lists Update: Laurel mcmahon Substance Agreement - OBS LIBIASUDARWIN Signed The enio ent has signed a controlled substance agreement form. The patient is not getting medicine from other doctors, and is using only one pharmacy and not abusing the medicine. The patient understands that there will Office Visit: Office Visit PHQ-9 SCORE 0 Adult dep ression screening assessment Replaced Document: (P) AST, BASIC METABOLIC PANEL, CBC (INCLUDES DIFF/PLT), REYNOLDS ... LAMOTRIGINE * ug/mL lamoTRIgi ne [Mass/volume] in Serum or Plasma BASOPHIL % 0.7 % N Basophils/ 100 leukocytes in Blood by Manual count EOSINOPHIL % 5.9 % N Eosinoph ils/100 leukocytes in Blood by Manual count MONOCYTE % 6.8 % N Monocytes/ 100 leukocytes in Blood by Automated count LYMPHS % 27.4 % N Lymphocytes/ 100 leukocytes in Blood by Automated count PMN % 59.2 % N Neutrophils/1 00 leukocytes in Blood by Automated count BASOPH COUNT 32 CELLS/UL 10*3/mm 3 0-200 N Basophils [#/volume] in Blood by Manual count EOS COUNT 271 CELLS/UL 10*3/mm 3 15-500 N eosinophil count, blood MONOSCT AUTO 313 CELLS/UL 10*3/uL 200-950 N Mon ocytes [#/volume] in Blood by Automated count LYMPH COUNT 1260 CELLS/UL 10*3/mm 3 850-3900 N lymphocyte count, blood NEUTRO COUNT 2723 CELLS/UL 10*3/mm 3 1500-780 0 N neutrophil count, blood MPV 11.6 fL 7.5-12.5 N Platelet evan n volume [Entitic volume] in Blood by Tra PLATELETS 159 THOUSAND/UL 10*3/mm 3 140-400 N Platelets [#/volume] in Blood by Automated count RDW 12.3 % 11.0-15. 0 N Erythrocyte distribution width [Ratio] by Automated count MCHC 34.3 G/DL 32.0-36. 0 N MCHC [Mass/volume] by Automated count MCH 30.8 pg 27.0-33. 0 N MCH [Entitic mass] by Automated count MCV 89.7 fL 80.0-100 .0 N MCV [Entitic volume] by Automated count HCT 42.9 % 38.5-50. 0 N Hematocrit [Volume Fraction] of Blood by Automated count HGB 14.7 g/dL 13.2-17. 1 N Hemoglobin [Mass/volume] in Blood RBC 4.78 MILLION/UL 10*6/mm 3 4.20-5.8 0 N Erythrocytes [#/volume] in Blood by Automated count WBC 4.6 THOUSAND/UL 10*3/mm 3 3.8-10.8 N Leukocytes [#/volume] in Blood by Automated count CA * mg/dL Calcium [Mass/volume] in Serum or Plasma CO2 TOTAL * mmol/L carbon diox jesus, serum, total CHLORIDE * mmol/L Chloride [Moles/volume] in Serum or Plasma POTASSIUM * mmol/L Potassium [Moles/volume] in Serum or Plasma SODIUM * mmol/L Sodium [Moles/volume] in Serum or Plasma BUN/CREAT * Urea nitrogen/Creatinine [Mass Ratio] in Serum or Plasma [id number] * GE use only - for Link[employer] import when terms are not otherwise specified CREATININE * mg/dL Creatinine [Mass/volume] in Serum or Plasma BUN * mg/dL Urea nitrogen [Mass/volume] in Serum or Plasma GLUCOSE SER * mg/dL Glucose [Mass/volume] in Serum or Plasma SGOT (AST) * U/L Aspartate aminotransferase [Enzymatic activity/volume] in Serum or Plasma Office Visit: Office Visit MEDS REVIEW Done Documenta tion of current medications (procedure) Internal Other: Authorizatio n AUTHBENEFIT Yes Authoriza tion: Assignment of Benefits and Payment Agreement AUTHVMEMTM Yes Authorizat ion: Authorization for [facility] to leave messages, voicemail, send text messages, send emails AUTHRELHCARE Yes Authoriz ation: Release/Retrieval of Information to/from Healthcare Facilities, Pharmacy Benefit Payers and Providers ROIAUTHOTHER Yes Authoriz ation: Release of Information - Authorize Others/Insurance - Payment and Healthcare Operations [email or web address] Yes Authoriza tion: Release of Information - Authorize [facility] - Payment and Healthcare Operations AUTHPRIVPRAC Yes Authoriz ation: Notice of privacy practices HIECONSENT Yes Consent To Release information to the [email or web address] ([employer]) Plan of Care Type Date Detail Appointment 11:00 AM Zaki nelson Jr, MD, [address] [facility], [address], [place], [address], Pending order Follow up Pending order Follow up Pending order Follow up Extend ed Pending order Follow up Extend ed Pending order Follow up Extend ed Pending order Follow up Extend ed Pending order Neuropsychology Evaluation Pending order Neuropsychology Evaluation Pending order AST (SGOT) Pending order Basic Metabolic Panel (8) Pending order CBC with Diff/Pl atelet Pending order Lamotrigine (Reynolds ictal) Pending order Follow up Pending order CPAP Order Pending order Work Note Pending order Work Note Pending order Follow up Extend ed telemedicine Pending order AST (SGOT) Pending order Basic Metabolic Panel (8) Pending order CBC with Diff/Pl atelet Pending order MRI-Brain W/WO Pending order EEG 2hr Pending order Lamotrigine (Reynolds ictal) Pending order Follow up in cli tom Pending order Instructions for Staff Pending order CPAP Order Pending order Sleep Apnea Hand out Pending order CPAP Handout Pending order Patient Instruct ions Pending order Drug Monitor 8 (ETOH/AMP/BZO/Buprenepherine/KAIDEN/Hero in/THC/MDMA/OPI/OXY) Urine Pending order Telemedicine Fol low up Pending order AST (SGOT) Pending order Basic Metabolic Panel (8) Pending order CBC with Diff/Pl atelet Pending order Lamotrigine (Reynolds ictal) Pending order Essential Tremor Facts Handout Pending order Essential Tremor Coping Tips Handout Pending order Essential Tremor Websites Handout Pending order Occupational The rapy Pending order Follow up Sleep in clinic or telemedicine Pending order CPAP Order Pending order Patient Instruct ions Pending order Telemedicine Fol low up Pending order AST (SGOT) Pending order Basic Metabolic Panel (8) Pending order CBC with Diff/Pl atelet Pending order Lamotrigine (Reynolds ictal) Pending order Follow up Pending order Telemedicine Fol low up Pending order CPAP Order Pending order Patient Instruct ions Pending order Sleep Apnea Hand out Pending order CPAP Handout Pending order AST (SGOT) Pending order Basic Metabolic Panel (8) Pending order CBC with Diff/Pl atelet Pending order Lamotrigine (Reynolds ictal) Pending order Follow up Pending order EEG Video Pending order EEG Video Pending Order exclud ed from report: Pending order MRI-Brain Seizur e Protocol W/O Pending order CPAP Order Pending order Patient Instruct ions Pending order Follow up Pending order AST (SGOT) Pending order Basic Metabolic Panel (8) Pending order CBC with Diff/Pl atelet Pending order Lamotrigine (Reynolds ictal) Pending order Follow up Pending order Patient Instruct ions Pending order Other Referral Pending order Lamotrigine (Reynolds ictal) Pending order Lamotrigine (Reynolds ictal) Pending order AST (SGOT) Pending order Basic Metabolic Panel (8) Pending order CBC with Diff/Pl atelet Pending order Lamotrigine (Reynolds ictal) Pending order Levetiracetam (K eppra) Pending order Instructions for Staff Pending order Follow up Pending order Follow up Pending order Other Referral Pending order Patient Instruct ions Pending order Follow up Pending order MRI-Brain Seizur e Protocol W/WO Pending order EEG Video Pending order Basic Metabolic Panel (8) Pending order CBC with Diff/Pl atelet Pending order Lamotrigine (Reynolds ictal) Pending order Levetiracetam (K eppra) Pending order Follow up Pending order Other Referral Pending order Patient Instruct ions Pending order Instructions for Staff Pending order Follow up Pending order Follow up Pending order Basic Metabolic Panel (8) Pending order Lamotrigine (Reynolds ictal) Pending order Levetiracetam (K eppra) Pending order Other Referral Pending order Other Referral Pending order MRI-Brain W/WO Pending order CBC with Diff/Pl atelet Pending order Comp Metabolic P patience (14) Pending order Hemoglobin A1C Pending order Levetiracetam (K eppra) Pending order Oxcarbazepine (T rileptal) Pending order Prostrate-Specif ic AG Serum Pending order Testosterone Adalid e and Total Pending order Electrolyte Pane l Pending order Other Referral Pending order Follow up Pending order Follow up Patient education Medications Procedures Code Procedure Name Date Entry Date ORDERS Follow up ORDERS AST (SGOT) ORDERS Basic Metabolic Panel (8) 14/10/03 ORDERS CBC with Diff/Platelet 09/23 ORDERS Lamotrigine (Lamictal) 09/23 ORDERS Work Note ORDERS Work Note ORDERS CPAP Order ORDERS Follow up Extended telemedicine 5 ORDERS Lamotrigine (Lamictal) 09/20 ORDERS CBC with Diff/Platelet 09/20 ORDERS Basic Metabolic Panel (8) 20 13/10/00 ORDERS AST (SGOT) CPT-F7023A ProHance Gadolinium- based MR Contrast - 20 ml vial CPT-33011 MRI Brain W/WO CPT-94515 EEG Setup CPT-21174 Video EEG 2-12hrs () 11/06 CPT-72512 Video EEG 2-12hrs (Jessie) 11/21/19 CPT-N2509T ProHance Gadolinium- based MR Contrast - 20 ml vial ORDERS EEG 2hr [id number] MRI-Brain W/WO ORDERS Instructions for Staff 09/20 ORDERS Follow up in clinic ORDERS CPAP Order ORDERS Sleep Apnea Handout ORDERS CPAP Handout ORDERS Patient Instructions ORDERS Drug Monitor 8 (ETOH/AMP/BZO/Buprenepherine/KAIDEN/Heroin/THC /MDMA/OPI/OXY) Urine [id number] Documentation of current medicatio ns ORDERS Essential Tremor Facts Handout ORDERS Essential Tremor Coping Tips Handout 2022 ORDERS Essential Tremor Websites Handout ORDERS Occupational Therapy ORDERS Telemedicine Follow up 09/20 ORDERS Lamotrigine (Lamictal) 09/20 ORDERS AST (SGOT) ORDERS Basic Metabolic Panel (8) 12/10/00 ORDERS CBC with Diff/Platelet 09/20 ORDERS Follow up Sleep in clinic or telemedicine ORDERS Patient Instructions ORDERS CPAP Order ORDERS Telemedicine Follow up 05/25 ORDERS Follow up ORDERS AST (SGOT) ORDERS Basic Metabolic Panel (8) 11/10/00 ORDERS CBC with Diff/Platelet 09/20 ORDERS Lamotrigine (Lamictal) 09/20 [id number]-[id number] Documentation of current medicatio ns SCT-[id number] Documentation of current medicatio ns ORDERS Sleep Apnea Handout ORDERS CPAP Handout ORDERS Patient Instructions ORDERS CPAP Order ORDERS Telemedicine Follow up 05/20 ORDERS AST (SGOT) SCT-[id number] Documentation of current medicatio ns ORDERS Basic Metabolic Panel (8) 20 10/10/00 ORDERS CBC with Diff/Platelet 09/20 ORDERS Lamotrigine (Lamictal) 09/20 ORDERS Follow up ORDERS EEG Video [id number] MRI-Brain Seizure Protocol W/O CPT-16661 MRI Brain W/WO CPT-T4763E ProHance Gadolinium- based MR Contrast - 15 ml vial ORDERS CPAP Order [id number] Documentation of current medicatio ns ORDERS Patient Instructions ORDERS Follow up ORDERS AST (SGOT) [id number] Documentation of current medicatio ns ORDERS Basic Metabolic Panel (8) 08/09/28 ORDERS CBC with Diff/Platelet 09/17 ORDERS Lamotrigine (Lamictal) 09/17 ORDERS Follow up ORDERS Patient Instructions [id number] Other Referral [id number] Documentation of current medicatio ns ORDERS Lamotrigine (Lamictal) 02/12 ORDERS Lamotrigine (Lamictal) 01/23 ORDERS Instructions for Staff 08/08 ORDERS AST (SGOT) ORDERS Basic Metabolic Panel (8) 06/08/20 ORDERS CBC with Diff/Platelet 08/08 ORDERS Lamotrigine (Lamictal) 08/08 ORDERS Levetiracetam (Keppra) 08/08 ORDERS Follow up ORDERS Follow up [id number]-[id number] Other Referral SCT-[id number] Documentation of current medicatio ns ORDERS Patient Instructions ORDERS Follow up ORDERS EEG Video [id number] MRI-Brain Seizure Protocol W/WO 2 CPT-W0968E ProHance Gadolinium- based MR Contrast - 20 ml vial CPT-68572 MRI Brain W/WO CPT-1688751 VIDEO EEG LIQUID LOADER MONITORING (END) -- less than 12 hrs ORDERS Lamotrigine (Lamictal) 08/08 ORDERS Levetiracetam (Keppra) 08/08 ORDERS Follow up ORDERS Basic Metabolic Panel (8) 05/08/20 ORDERS CBC with Diff/Platelet 08/08 ORDERS Follow up [id number] Other Referral ORDERS Instructions for Staff 05/17 ORDERS Patient Instructions SCT-[id number] Documentation of current medicatio ns ORDERS Follow up ORDERS Follow up SCT-[id number] Documentation of current medicatio ns ORDERS Lamotrigine (Lamictal) 03/22 ORDERS Levetiracetam (Keppra) 03/22 ORDERS Basic Metabolic Panel (8) 20 04/04/03 [id number]-[id number] Other Referral SCT-[id number] Documentation of current medicatio ns SCT-[id number] Other Referral SCT-[id number] Documentation of current medicatio ns SCT-[id number] Documentation of current medicatio ns SCT-[id number] Other Referral CPT-46304 MRI Brain W/WO CPT-N4876U ProHance Gadolinium- based MR Contrast - 20 ml vial [id number] MRI-Brain W/WO SCT-[id number] Documentation of current medicatio ns ORDERS Prostrate-Specific AG Serum ORDERS Testosterone Free and Total ORDERS Comp Metabolic Panel (14) 20 02/02/07 ORDERS CBC with Diff/Platelet 01/24 ORDERS Hemoglobin A1C ORDERS Levetiracetam (Keppra) 01/24 ORDERS Oxcarbazepine (Trileptal) 20 02/02/07 ORDERS Electrolyte Panel SCT-[id number] Documentation of current medicatio ns SCT-[id number] Documentation of current medicatio ns SCT-[id number] Other Referral ORDERS Follow up ORDERS Follow up SCT-[id number] Documentation of current medicatio ns CPT-A7647N MultiHance Gadoliniu m-based MR Contrast - 15 ml vial CPT-11736 MRA Neck W/WO CPT-10084 XRAY Hip (Unilateral/Min 2 Views) CPT-34231 MRA Head W/O CPT-97152 MRA Neck W/O CPT-Q8717J ProHance Gadolinium- based MR Contrast - 20 ml vial CPT-65542 MRI Brain W/WO CPT-3290935 VIDEO EEG LIQUID LOADER MONITORING (END) -- less than 12 hrs CPT-31176 MRI Brain W/WO C5621P ProHance Cody-based MR Contrast - 20 ml vi al [id number] ProHance Cody-based MR Contrast - 20 ml vi al CPT-85304 MRI Brain W/WO CPT-72070 Polysomnography, with CPAP (81712) 05/12 V8894C ProHance Cody-based M R Contrast - 17 ml prefilled CPT-95268 MRI Brain W/WO A9579 ProHance Cody-based M R Contrast, 17 ml prefilled CPT-40776 MRI Brain (With & Without Contrast) 10/21 A9579 ProHance Cody-based M R Contrast, 17 ml prefilled CPT-82035 MRI Brain (With & Without Contrast) 01/19 CPT-13161 Chem-Face ONLY CPT-J0585 Botox 1 vial CPT-58139 E&M Service (same day as procedure) 05/22 CPT-79317 E&M Service (same day as procedure) 02/27 CPT-J0585 Botox 1 vial CPT-12654 Chem-Face ONLY Vital Signs Date Name Value Unit Description BMI (Body Mass Index) 27.12 kg/m2 Bod y Mass Index (Ratio) Height 70.5 [in_us] height E&M Weight Measured 86.82 kg weight in kilograms E&M Weight Measured 191 [lb_av] weight E& M Weight Measured 191 [lb_av] weight E& M Heart Rate 72 /min pulse rate Respiratory Rate 16 /min respirat ory rate E&M BP Diastolic 70 mm[Hg] blood pressu re, diastolic BP Systolic 138 mm[Hg] blood pressur e, systolic BP Diastolic 90 mm[Hg] blood pressu re, diastolic, second observation BP Systolic 140 mm[Hg] blood pressur e, systolic, second observation Body Temperature 37 [degF] temperat ure E&M Immunizations No information available. Advance Directives No information available.
--- OUTSIDE RECORDS SUMMARY | 2024-12-11 23:51 | XMS_ITS | Encounter Summary ---
Author Organization [facility] Address [address] [place] [address]. [place] [address] Care Team Providers Care Subcontract Manager Name Role Phone Wilber Vidales MD Primary Care Provider [phone] Stephie Mahoney MD Unavailable [phone] Federica Foster RN Unavailable [phone] Unavailable [phone] Stephie Mahoney MD Unavailable [phone] Olga Garcia RN Unavailable [phone] Junior Chavira MD Unavailable [phone] Shantel Walker MD Unavailable [phone] Junior Chavira MD Unavailable [phone] Coni Dhaliwal BARREL COOPER Unavailable [phone] Anel Long NP Unavailable [phone] Angel Balbuena MD Unavailable [phone] Encounter Details Date Type Department Care Team (Late st Contact Info) Description 11/30/2024 [facility]ology [facility] [place] [address] [facility] 3rd [place] [address] Stephie Mahoney MD [address] [facility] [address] [place] [address] Social History Tobacco Use Types Packs/Day Years [...] How often do you attend chur or yazidi services? 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 Identity Male 03/03/2019 9:24 PM CDT Sexual Orientation Straight 03/03/2019 9: 24 PM CDT documented as of this encounter Plan of Treatment Upcoming Encounters Date Type Department Care Team (Late st Contact Info) Description 12/17/2024 9:30 AM CDT Lab [facility] [address] [place] [phone] 12/23/2024 4:00 PM CDT Office Visit [facility] [address] [facility] [address] [place] [phone] Cyrus Aleman MD [address] [place] [address] [id number] 01/27/2025 10:00 AM CDT Office Visit [facility] Neurology [facility] [address] [place] [address] [address] [place] [phone] Anel Long, WEBFED OFFSET PRESS OPERATOR [address] [facility] [place], [place] [address] Coni Dhaliwal, COREY [address] [facility] [address] [place], [place] [address] 04/14/2025 11:15 AM CDT Office Visit [facility] Heart [facility] [address] [facility] [address] [place] [phone] Inessa Esteves DO [address] [facility] [address] [place], [place] [address] 06/05/2025 12:30 PM CDT Office Visit [facility] Endocrinology [address] [phone] Stephie Mahoney MD [address] [place] [address] 11/13/2025 11:00 AM CDT Virtual Visit [facility] Endocrinology [address] [place] [phone] Stephie Mahoney MD [address] [place] [address] [place] [address] documented as of this encounter Visit Diagnoses Not on filedocumented in this encounter Care Teams Subcontract Manager Relationship Specialty [place] [address] [address] [place] [address] PCP - General Family Practice 11/21/16 Stephie Mahoney MD [address] [place] [address] Endocrinology, Diabetes, and Metabolism 04/22/21 Federica Foster RN [address] [place] [address] 475215 Logistics Analyst Diabetes Education 04/22/[address] [place] [address] Logistics Analyst Nutrition 04/22/21 Stephie Mahoney MD [address] [place] [address] Assigned Endocrinology Provider 05/08/21 Olga Garcia RN Specialty Body Specialist INTERNAL MEDICINE - ENDOCRINOLOGY, DIABETES & METABOLISM 09/29/22 Junior Chavira MD [address] [place] [address]38[address] Cardiovascular Disease 05/29/24 [place] [address] [place] [address] Assigned PCP 07/12/24 Junior Chavira MD [address] [place] [address] Assigned Heart and Vascular Provider 08/11/24 Coni Dhaliwal, BARREL COOPER [address] [place] [address] Nurse Practitioner Psychiatry & Neurology Vascular Neurology 11/04/24 Anel Long NP [address] [place] [place] [address] Nurse Practitioner Psychiatry & Neurology Vascular Neurology 11/04/24 Angel Balbuena MD [address] [place] [address] Assigned Heart and Vascular Surgical Provider 12/10/24 documented as of this encounter
--- OUTSIDE RECORDS SUMMARY | 2024-12-11 23:51 | XMS_ITS | Encounter Summary ---
Author Organization [facility] Address [address] [place] [address]. [place] [address] Care Team Providers Care Marketing Strategy Lead Name Role Phone Wilber Vidales MD Primary Care Provider [phone] Stephie Mahoney MD Unavailable +[phone] Federica Foster RN Unavailable +[phone] Unavailable [phone] Stephie Mahoney MD Unavailable [phone] Olga Garcia RN Unavailable [phone] Junior Chavira MD Unavailable +[phone] Shantel Walker MD Unavailable +[phone] Junior Chavira MD Unavailable [phone] Coni Dhaliwal CNP Unavailable +[phone] Anel Long NP Unavailable [phone] Encounter Details Date Type Department Care Team (Latest Contact Info) Description 11/26/2024 Travel Social History Tobacco Use Types Packs/Day [...] often do you attend chur ch or scientology services? More than 4 times per year 07/12/2023 Do you belong to any clubs o r organizations such as sikh groups, unions, fraternal or athletic groups, or [...] Answer Date Recorded PHQ-2 Score 0 11/14/2024 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 Gender Identity Male 03/03/2019 9:24 PM CDT Sexual Orientation Straight 03/03/2019 9: 24 PM CDT documented as of this encounter Plan of Treatment Upcoming Encounters Date Type Department Care Team (Late st Contact Info) Description 12/17/2024 9:30 AM CDT Lab [facility] Laboratory [address] [place] [address] 12/23/2024 4:00 PM CDT Office Visit [place] [address] [place] [address] Cyrus Aleman MD [address] [place] [address] 01/27/2025 10:00 AM CDT Office Visit [facility] Neurology [address] [place] [address] Anel Long, LAMINATION SPINNER [address] [place] [address] Coni Dhaliwal, COREY [address] [place] [address] 04/14/2025 11:15 AM CDT Office Visit [facility] Heart [facility] [address] [facility] [address] [place] [phone] Inessa Esteves DO [address] [place] [address]455 06/05/2025 12:30 PM CDT Office Visit [facility] Endocrinology Clinic [address] [phone] Stephie Mahoney MD [address] [place] [address] 11/13/2025 11:00 AM CDT Virtual Visit [facility] Endocrinology [address] [phone] Stephie Mahoney MD [address] [place] [address] 275175 documented as of this encounter Visit Diagnoses Not on filedocumented in this encounter Care Teams Marketing Strategy Lead Relationship Specialty [place] [address] [place] [address] PCP - General Family Practice 11/21/16 Stephie Mahoney MD [address] 725905 Endocrinology, Diabetes, and Metabolism 04/22/21 Federica Foster, RN 420 [place], [place] [address]25 Application Support Developer Diabetes Education 04/22/[address] [place] [address] [phone] Application Support Developer Nutrition 04/22/21 Stephie Mahoney MD [address] [place] [address] 064935 Assigned Endocrinology Provider 05/08/21 Olga Garcia RN Specialty Body And Fender Worker INTERNAL MEDICINE - ENDOCRINOLOGY, DIABETES & METABOLISM 09/29/22 Junior Chavira MD [address] [place] [id number] Cardiovascular Disease 05/29/24 [place] [address] [place] [address] Assigned PCP 07/12/24 Junior Chavira MD [address] [place] [id number] Assigned Heart and Vascular Provider 08/11/24 Coni Dhaliwal, FUNDRAISING OFFICER [address] [place] [address] Nurse Practitioner Psychiatry & Neurology Vascular Neurology 11/04/24 Anel Long NP [address] [place] [address] Nurse Practitioner Psychiatry & Neurology Vascular Neurology 11/04/24 documented as of this encounter
--- OUTSIDE RECORDS SUMMARY | 2024-12-11 23:51 | XMS_ITS | Encounter Summary ---
Author Organization [facility] Address [address] [place] [address]. [place] [address] Care Team Providers Care Machine Shop Instructor Name Role Phone Wilber Vidales MD Primary Care Provider [phone] Wilber Vidales MD Unavailable Stephie Mahoney MD Unavailable [phone] Federica Foster RN Unavailable [phone] Unavailable [phone] Stephie Mahoney MD Unavailable [phone] Olga Garcia RN Unavailable [phone] Matt Baez MD Unavailable [phone] Junior Chavira MD Unavailable [phone] Shantel Walker MD Unavailable [phone] Junior Chavira MD Unavailable [phone] Coni Dhaliwal CNP Unavailable [phone] Anel Long NP Unavailable Reason for Visit * Reason Onset Date Comments Appointment 10/12/2022 Encounter Details Date Type Department Care Team (Late st Contact Info) Description 10/12/2022 [facility] Endocrinology Clinic [address] 3rd [place] [address] Stephie Mahoney MD 420 [facility] SE [facility] [address] [place] [address] Appointment Social History Tobacco Use Types Packs/Day [...] How often do you attend chur or uatsdin services? 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 Gender Identity Male 03/03/2019 9:24 PM CDT Sexual Orientation Straight 03/03/2019 9: 24 PM CDT COVID-19 Exposure Response Date Recorded In the last 10 days, have sharlene u been in contact with someone who [...] Nicole Stacy on 10/12/2022 at 11:30 AM ILITY CLAIMS REPRESENTATIVE documented in this encounter Plan of Treatment Upcoming Encounters Date Type Department Care Team (Late st Contact Info) Description 12/17/2024 9:30 AM CDT Lab [facility] Laboratory [address] [place] [address] 12/23/2024 4:00 PM CDT Office Visit [address] [phone] Cyrus Aelman MD [address] [place] [address] 586675 01/27/2025 10:00 AM CDT Office Visit [facility] Neurology [address] 200 [place] [address] Anel Long, ELECTRICAL ENGINEERING TECHNICIAN [address]5 [place], [place] [address]695 Coni Dhaliwal, PANEL WIRER [address] [address] 04/14/2025 11:15 AM CDT Office Visit [facility] Heart [facility] [address] [place] [address] [address] [place] [phone] Inessa sEteves, [address] [place] [address] 06/05/2025 12:30 PM CDT Office Visit [facility] Endocrinology Clinic [address] [place] [phone] Stephie Mahoney MD [address] [place] [address] 194445 11/13/2025 11:00 AM CDT Virtual Visit [facility] Endocrinology Clinic [address] [phone] Stephie Mahoney MD [address] [place] [address] 114235 documented as of this encounter Visit Diagnoses Not on filedocumented in this encounter Additional Health Concerns Infection Onset Date Last Indicated Resolved Time Rule Out COVID-19 10/12/2024 10/12/2024 10/12/2024 11:31 AM LIABILITY CLAIMS REPRESENTATIVE documented as of this encounter Care Teams Machine Shop Instructor Relationship Specialty [place] [address] [place] [address] PCP - General Family Practice 11/21/16 [place] [address] [place] [address] Assigned PCP 01/30/21 07/11/24 Stephie Mahoney MD [address] [place] [address] Endocrinology, Diabetes, and Metabolism 04/22/21 Federica Foster, RN 420 [place] [address] Petroleum Production Engineer Diabetes Education 04/22/[address] [facility] [address] [address] Petroleum Production Engineer Nutrition 04/22/21 Stephie Mahoney MD 420 [facility] [address] [place] [address] Assigned Endocrinology Provider 05/08/21 Olga Garcia RN Specialty Shear Operator Automatic INTERNAL MEDICINE - ENDOCRINOLOGY, DIABETES & METABOLISM 09/29/22 Matt Baez MD [address] [place] [id number] Assigned Heart and Vascular Provider 12/23/22 05/04/23 Junior Chavira MD [address] [place] 8[address]25 Cardiovascular Disease 05/29/24 [place] [address] [place] [address] Assigned PCP 07/12/24 Junior Chavira MD [address] [place] [address]345 Assigned Heart and Vascular Provider 08/11/24 Coni Dhaliwal, PANEL WIRER [address] [place] 45[address]85 Nurse Practitioner Psychiatry & Neurology Vascular Neurology 11/04/24 Anel Long NP [address] [place] [address] Nurse Practitioner Psychiatry & Neurology Vascular Neurology 11/04/24 documented as of this encounter
--- OUTSIDE RECORDS SUMMARY | 2024-12-11 23:51 | XMS_ITS | Encounter Summary ---
Author Organization [facility] Address [address] [place] [address]. [place] [address] Care Team Providers Care Shuttle Filler Name Role Phone Wilber Vidales MD Primary Care Provider [phone] Stephie Mahoney MD Unavailable [phone] Federica Foster RN Unavailable +[phone] Unavailable [phone] Stephie Mahoney MD Unavailable [phone] Olga Garcia RN Unavailable [phone] Junior Chvaira MD Unavailable [phone] Shantel Walker MD Unavailable [phone] Junior Chavira MD Unavailable [phone] Coni Dhaliwal CNP Unavailable [phone] Anel Long NP Unavailable [phone] Encounter Details Date Type Department Care Team (Latest Contact Info) Description 12/01/2024 Travel Social History Tobacco Use Types Packs/Day [...] often do you attend chur ch or druze services? 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 Gender Identity Male 03/03/2019 9:24 PM CDT Sexual Orientation Straight 03/03/2019 9: 24 PM CDT documented as of this encounter Plan of Treatment Upcoming Encounters Date Type Department Care Team (Late st Contact Info) Description 12/17/2024 9:30 AM CDT Lab [facility] Laboratory [address] [place] [address] 12/23/2024 4:00 PM CDT Office Visit [place] [address] [place] [address] Cyrus Aleman MD [address] [place] [address] 01/27/2025 10:00 AM CDT Office Visit [facility] Neurology [address] [place] [address] Anel Long, LOG YARD MANAGER [address] [place] [address] Coni Dhaliwal, COREY [address] [place] [address]75 04/14/2025 11:15 AM CDT Office Visit [facility] Heart [facility] [address] [facility] [address] [place] [phone] Inessa Esteves DO [address] [place] [address] 06/05/2025 12:30 PM CDT Office Visit [facility] Endocrinology Clinic [address] [phone] Stephie Mahoney MD [address] [place] [address] 11/13/2025 11:00 AM CDT Virtual Visit [facility] Endocrinology [address] [phone] Stephie Mahoney MD [address] [place] [address] 708105 documented as of this encounter Visit Diagnoses Not on filedocumented in this encounter Care Teams Shuttle Filler Relationship Specialty [place] [address] [place] [address] PCP - General Family Practice 11/21/16 Stephie Mahoney MD [address] 740725 Endocrinology, Diabetes, and Metabolism 04/22/21 Federica Foster, RN 420 [place], [place] 014745 Corporate Services Manager Diabetes Education 04/22/[address] [place] [address] 427544 Corporate Services Manager Nutrition 04/22/21 Stephie Mahoney MD [address] [place] [address] 915505 Assigned Endocrinology Provider 05/08/21 Olga Garcia RN Specialty Career Coach INTERNAL MEDICINE - ENDOCRINOLOGY, DIABETES & METABOLISM 09/29/22 Junior Chavira MD [address] [place] [address] Cardiovascular Disease 05/29/24 [place] [address] [place] [address] Assigned PCP 07/12/24 Junior Chavira MD [address] [place] 252145 Assigned Heart and Vascular Provider 08/11/24 Coni Dhaliwal, COMMUNITY DEVELOPMENT COORDINATOR [address] [place] [address] Nurse Practitioner Psychiatry & Neurology Vascular Neurology 11/04/24 Anel Long NP [address] [place] [address] Nurse Practitioner Psychiatry & Neurology Vascular Neurology 11/04/24 documented as of this encounter
--- OUTSIDE RECORDS SUMMARY | 2024-12-11 23:52 | XMS_ITS | Encounter Summary ---
Author Organization [facility] Address [address] [place] [address]. [place] [address] Care Team Providers Care Mineral Mixer Name Role Phone Wilber Vidales MD Primary Care Provider [phone] Wilber Vidales MD Unavailable Matt Baez MD Unavailable [phone] Wilber Vidales MD Unavailable Wilber Vidales MD Unavailable Stephie Mahoney MD Unavailable [phone] Federica Foster RN Unavailable [phone] Unavailable [phone] Stephie Mahoney MD Unavailable [phone] Olga Garcia RN Unavailable +[phone] Matt Baez MD Unavailable Junior Chavira MD Unavailable [phone] Shantel Walker MD Unavailable [phone] Junior Chavira MD Unavailable [phone] Coni Dhaliwal CNP Unavailable [phone] Anel Long NP Unavailable [phone] Angel Balbuena MD Unavailable [phone] Encounter Details Date Type Department Care Team (Late st Contact Info) Description 06/26/2019 My[facility] Medical Advice [facility] Cardiothoracic [address] [place] [address] Ej Haines MD [address] [place] [address] [facility] [address] [place] [address] Social History Tobacco Use Types [...] and Family Once a week 03/17/2019 Attends Scientology Services More than 4 times per year [...] Answer Date Recorded PHQ-2 Score 0 08/27/2018 [facility] [place] of Occupat ional Health - Occupational Stress [...] AM CDT 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 Gender Identity Male 03/03/2019 9:24 PM CDT Sexual Orientation Straight 03/03/2019 9: 24 PM CDT documented as of this encounter Plan of Treatment Upcoming Encounters Date Type Department Care Team (Late st Contact Info) Description 12/17/2024 9:30 AM CDT Lab [facility] Laboratory [address] [place] [phone] 12/23/2024 4:00 PM CDT Office Visit [address] [phone] Cyrus Aleman MD [address] [place] [address] 972505 01/27/2025 10:00 AM CDT Office Visit [facility] Neurology [address] 200 [place] [phone] Anel Long, LAP WINDER 6493 [place], [place] 3[address] Coni Dhaliwal, COREY [address] 945305 04/14/2025 11:15 AM CDT Office Visit [facility] Heart [facility] [address] [facility] [address] [place] [phone] LeroyreesevannesaEliazarInessasergio FunesDO [address] [place] [address] 06/05/2025 12:30 PM CDT Office Visit [facility] Endocrinology [address] [place] [phone] Stephie Mahoney MD [address] [place] [address] 686555 11/13/2025 11:00 AM CDT Virtual Visit [facility] Endocrinology [address] [phone] Stephie Mahoney MD [address] [place] [address] 457015 documented as of this encounter Visit Diagnoses Not on filedocumented in this encounter Additional Health Concerns Infection Onset Date Last Indicated Resolved Time Rule Out COVID-19 03/10/2022 03/10/2022 03/10/2022 1:37 AM CDT COVID-19 03/10/2022 03/10/2022 03/31/2022 11:3 9 PM CDT Rule Out COVID-19 10/12/2024 10/12/2024 10/12/2024 11:31 AM STUCCO APPLICATOR documented as of this encounter Care Teams Mineral Mixer Relationship Specialty [place] [address] [address] [place] [address] PCP - General Family Practice 11/21/16 [place] [address] [address] [address] Assigned PCP 10/31/20 01/29/21 Matt Baez MD [address] [facility] [address] [place] [address] Assigned Heart and Vascular Provider 06/11/20 06/23/22 [place] [address] [place] [address] Assigned PCP 11/02/16 10/30/20 [place] [address] [place] [address] Assigned PCP 01/30/21 07/11/24 Stephie Mahoney MD [address] [place] [address] Endocrinology, Diabetes, and Metabolism 04/22/21 Federica Foster RN [address] [place] [address] Salon Assistant Diabetes Education 04/22/[address] [place] [address] Salon Assistant Nutrition 04/22/21 Stephie Mahoney MD [address] [place] [address] Assigned Endocrinology Provider 05/08/21 Olga Garcia RN Specialty Train Control Electronic Technician INTERNAL MEDICINE - ENDOCRINOLOGY, DIABETES & METABOLISM 09/29/22 Matt Baez MD [address] [place] [address] Assigned Heart and Vascular Provider 12/23/22 05/04/23 Junior Chavira MD [address] [place] 400305 Cardiovascular Disease 05/29/24 [place] [address] [place] [address] Assigned PCP 07/12/24 Junior Chavira MD [address] [place] [address] Assigned Heart and Vascular Provider 08/11/24 Coni Dhaliwal CNP [address] [place] [address]245 Nurse Practitioner Psychiatry & Neurology Vascular Neurology 11/04/24 Anel Long NP [address] [place] [address] Nurse Practitioner Psychiatry & Neurology Vascular Neurology 11/04/24 Angel Balbuena MD 909 [facility] [place] [place] [address] Assigned Heart and Vascular Surgical Provider 12/10/24 documented as of this encounter
--- OUTSIDE RECORDS SUMMARY | 2024-12-11 23:52 | XMS_ITS | Encounter Summary ---
Author Organization [facility] Address [address] [place] [address]. [place] [address] Care Team Providers Care Bed Manager Name Role Phone Wilber Vidales MD Primary Care Provider [phone] Matt Baez MD Unavailable [phone] Wilber Vidales MD Unavailable Stephie Mahoney MD Unavailable Federica Fotser RN Unavailable Tova Welch RD Unavailable [phone] Stephie Mahoney MD Unavailable Olga Garcia RN Unavailable [phone] Matt Baez MD Unavailable [phone] Junior Chavira MD Unavailable [phone] Shantel Walker MD Unavailable [phone] Junior Chavira MD Unavailable [phone] Coni Dhaliwal CNP Unavailable [phone] Anel Long NP Unavailable [phone] Angel Balbuena MD Unavailable [phone] Reason for Visit * Reason Onset Date Comments Refill Request 06/23/2021 Encounter Details Date Type Department Care Team (Late st Contact Info) Description 06/23/2021 Refill [facility] [address] [place] [address] [place] [address] [place] [address] Refill Request Social History Tobacco [...] week 06/27/2021 How often do you attend [facility] or [facility] services? 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 Gender Identity Male 03/03/2019 9:24 PM CDT Sexual Orientation Straight 03/03/2019 9: 24 PM CDT documented as of this encounter Plan of Treatment Upcoming Encounters Date Type Department Care Team (Late st Contact Info) Description 12/17/2024 9:30 AM CDT Lab [facility] Laboratory [address] [place] [address] 12/23/2024 4:00 PM CDT Office Visit [facility] 6545 [facility] [address] [place] [address] Cyrus Aleman MD [address] [place] [address] 375715 01/27/2025 10:00 AM CDT Office Visit [facility] Neurology [facility] [address] [place] [address] 200 [place] [phone] Anel Long, FURNACE FIRER [address] [facility] [address] [place], [place] [address] Coni Dhaliwal CNP 9674 [facility] 450 [place], [place] [address]145 04/14/2025 11:15 AM CDT Office Visit [facility] Heart [facility] [address] [facility] [address] [place] [phone] Inessa Esteves DO [address] [place], [place] [address] 06/05/2025 12:30 PM CDT Office Visit [facility] Endocrinology Clinic [address] [phone] Stephie Mahoney MD [address] [place] [address] 778645 11/13/2025 11:00 AM CDT Virtual Visit [facility] Endocrinology [address] [phone] Stephie Mahoney MD [address] [place] [address] documented as of this encounter Visit Diagnoses Not on filedocumented in this encounter Additional Health Concerns Infection Onset Date Last Indicated Resolved Time Rule Out COVID-19 03/10/2022 03/10/2022 03/10/2022 1:37 AM CDT COVID-19 03/10/2022 03/10/2022 03/31/2022 11:3 9 PM CDT Rule Out COVID-19 10/12/2024 10/12/2024 10/12/2024 11:31 AM GENERAL ACCOUNTING CLERK documented as of this encounter Care Teams Bed Manager Relationship Specialty [place] [address] [place] [address] PCP - General Family Practice 11/21/16 Matt Baez MD [address] [facility] [address] [place] [address] Assigned Heart and Vascular Provider 06/11/20 06/23/22 [place] [address] [place] [address] Assigned PCP 01/30/21 07/11/24 Stephie Mahoney MD [address] [place] [address] Endocrinology, Diabetes, and Metabolism 04/22/21 Federica Foster, RN [address] [place] [address] 783795 Concrete Mixer Diabetes Education 04/22/[address] [place] [address] Concrete Mixer Nutrition 04/22/21 Stephie Mahoney MD [address] [place] [address] [facility] 101 [place], [place] [address] Assigned Endocrinology Provider 05/08/21 Olga Garcia RN Specialty Window Shade Cutter INTERNAL MEDICINE - ENDOCRINOLOGY, DIABETES & METABOLISM 09/29/22 Matt Baez MD [address] [place], [place] [address] Assigned Heart and Vascular Provider 12/23/22 05/04/23 Junior Chavira MD [address] [place] 65[address] Cardiovascular Disease 05/29/24 [place] [address] [place] [address] Assigned PCP 07/12/24 Junior Chavira MD [address] [place], [place] 7[address] Assigned Heart and Vascular Provider 08/11/24 Coni Dhaliwal, COREY [address] [place], [place] [address] Nurse Practitioner Psychiatry & Neurology Vascular Neurology 11/04/24 Anel Long NP [address] [place], [place] 507[address] Nurse Practitioner Psychiatry & Neurology Vascular Neurology 11/04/24 Angel Balbuena MD [address] [place] [address] Assigned Heart and Vascular Surgical Provider 12/10/24 documented as of this encounter
--- OUTSIDE RECORDS SUMMARY | 2024-12-11 23:52 | XMS_ITS | Encounter Summary ---
Author Organization [facility] Address [address] [place] [address]. [place] [address] Care Team Providers Care Athletic Instructor Name Role Phone Wilber Vidales MD Primary Care Provider [phone] Matt Baez MD Unavailable Wilber Vidales MD Unavailable Stephie Mahoney MD Unavailable Federica Foster RN Unavailable Tova Welch RD Unavailable [phone] Stephie Mahoney MD Unavailable Olga Garcia RN Unavailable [phone] Matt Baez MD Unavailable [phone] Junior Chavira MD Unavailable [phone] Shantel Walker MD Unavailable [phone] Junior Chavira MD Unavailable [phone] Coni Dhaliwal CNP Unavailable [phone] Anel Long NP Unavailable [phone] Angel Balbuena MD Unavailable [phone] Encounter Details Date Type Department Care Team (Late st Contact Info) Description 01/27/2022 My[facility] Medical Advice [facility] Diabetes Education [address] 3rd [place] [address] Federica Foster, RN 420 [place] [address] Social History Tobacco Use Types Packs/Day Years [...] week 06/27/2021 [facility] attend [facility]? More than 4 times per year 06/27/2021 Do you belong to any clubs o r organizations such as amish groups, unions, fraternal or athletic groups, or [...] Answer Date Recorded PHQ-2 Score 0 09/02/2021 [facility] of Occupat ional Health - Occupational Stress [...] AM CDT 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 PORCELAIN WAXER Gender Identity Male 03/03/2019 9:24 PM CDT Sexual Orientation Straight 03/03/2019 9: 24 PM CDT documented as of this encounter Plan of Treatment Upcoming Encounters Date Type Department Care Team (Late st Contact Info) Description 12/17/2024 9:30 AM CDT [facility] [address] [place] [address] 12/23/2024 4:00 PM CDT Office Visit [facility] 6545 [facility] 450 [place] [phone] Cyrus Aleman MD [address] [place] [address] 01/27/2025 10:00 AM CDT Office Visit [facility] Neurology [facility] [address] [place] [address] 200 [place] [phone] Anel Long, CARBURETOR REPAIRER [address] [facility] [place] [place] [address] Coni Dhaliwal, SENIOR COMMUNICATIONS ENGINEER 9645 [facility] 450 [place], [place] [address] 04/14/2025 11:15 AM CDT Office Visit [facility] Heart [facility] [address] [facility] [address] [place] [phone] Inessa Esteves DO 6405 [facility] [address] [place], [place] [address] 06/05/2025 12:30 PM CDT Office Visit [facility]ology [facility] [address] [phone] Stephie Mahoney MD [address] [place] [address] 731725 11/13/2025 11:00 AM CDT Virtual Visit [facility] Endocrinology [facility] [address] [phone] Stephie Mahoney MD [address] 2495[address] documented as of this encounter Visit Diagnoses Not on filedocumented in this encounter Additional Health Concerns Infection Onset Date Last Indicated Resolved Time Rule Out COVID-19 03/10/2022 03/10/2022 03/10/2022 1:37 AM CDT COVID-19 03/10/2022 03/10/2022 03/31/2022 11:3 9 PM CDT Rule Out COVID-19 10/12/2024 10/12/2024 10/12/2024 11:31 AM PORCELAIN WAXER documented as of this encounter Care Teams Athletic Instructor Relationship Specialty [place] [address] [place] [address] PCP - General Family Practice 11/21/16 Matt Baez MD [address] [facility] [address] [place] [address] Assigned Heart and Vascular Provider 06/11/20 06/23/22 [place] [address] [place] [address] [address] Assigned PCP 01/30/21 07/11/24 Stephie Mahoney MD [address] [address] Endocrinology, Diabetes, and Metabolism 04/22/21 Federica Foster, RN 420 [place], [place] 653445 Manager Sharepoint Diabetes Education 04/22/21 Tova Welch, OSCAR [address] [place] [address] Manager Sharepoint Nutrition 04/22/21 Stephie Mahoney MD [address] [place] [facility] 101 [place], [place] 2203[address] Assigned Endocrinology Provider 05/08/21 Olga Garcia, RN Specialty Project Assistant INTERNAL MEDICINE - ENDOCRINOLOGY, DIABETES & METABOLISM 09/29/22 Matt Baez MD [address] [place], [place] 723[address] Assigned Heart and Vascular Provider 12/23/22 05/04/23 Junior Chavira MD [address] [place], [place] 325[address] Cardiovascular Disease 05/29/24 [place] [address] [place] [address] Assigned PCP 07/12/24 Junior Chavira MD [address] [place], [place] 141215 Assigned Heart and Vascular Provider 08/11/24 Coni Dhaliwal CNP [address] [place], [place] [address] Nurse Practitioner Psychiatry & Neurology Vascular Neurology 11/04/24 Anel Long NP [address] [place] [address]25 Nurse Practitioner Psychiatry & Neurology Vascular Neurology 11/04/24 Angel Balbuena MD [address] [place] [address] Assigned Heart and Vascular Surgical Provider 12/10/24 documented as of this encounter
--- OUTSIDE RECORDS SUMMARY | 2024-12-11 23:52 | XMS_ITS | Encounter Summary ---
Author Organization [facility] Address [address] [place] [address]. [place] [address] Care Team Providers Care Edge Grinder Name Role Phone Wilber Vidales MD Primary Care Provider [phone] Wilber Vidales MD Unavailable Stephie Mahoney MD Unavailable [phone] Federica Foster RN Unavailable [phone] Unavailable [phone] Stephie Mahoney MD Unavailable [phone] Olga Garcia RN Unavailable [phone] Junior Chavira MD Unavailable [phone] Shantel Walker MD Unavailable [phone] Junior Chavira MD Unavailable [phone] Coni Dhaliwal SALES MANAGER Unavailable [phone] Anel Long NP Unavailable Angel Balbuena MD Unavailable [phone] Encounter Details Date Type Department Care Team (Late st Contact Info) Description 05/23/2024 [facility] Endocrinology Clinic [place] [id number] [facility] [address] [place] [address] Rebecca Harvey RN Social History Tobacco Use Types Packs/Day [...] 0 11/23/2023 [facility] Health - Occupational [...] AM CDT 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 Gender Identity Male 03/03/2019 9:24 PM CDT Sexual Orientation Straight 03/03/2019 9: 24 PM CDT documented as of this encounter Plan of Treatment Upcoming Encounters Date Type Department Care Team (Late st Contact Info) Description 12/17/2024 9:30 AM CDT Lab [facility] [address] [place] [address] 12/23/2024 4:00 PM CDT Office Visit [facility] 6545 [facility] 450 [place] [phone] Cyrus Aleman MD [address] [place] [address] 952755 01/27/2025 10:00 AM CDT Office Visit [facility] Neurology [facility] [address] [place] [address] 200 [place] [phone] Anel Long, ATRIK [address] [facility] [place] [place], [place] [address] Coni Dhaliwal CNP [address] [facility] 450 [place], [place] [address] 04/14/2025 11:15 AM CDT Office Visit [facility] Heart [facility] [address] [facility] [address] [place] [phone] Inessa Esteves DO [address] [facility] [address] [place], [place] [address] 06/05/2025 12:30 PM CDT Office Visit [facility] Endocrinology Clinic [address] [phone] Stephie Mahoney MD [address] [place] [address] 106415 11/13/2025 11:00 AM CDT Virtual Visit [facility] Endocrinology [address] [phone] Stephie Mahoney MD [address] [place] [address] documented as of this encounter Visit Diagnoses Not on filedocumented in this encounter Additional Health Concerns Infection Onset Date Last Indicated Resolved Time Rule Out COVID-19 10/12/2024 10/12/2024 10/12/2024 11:31 AM 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 OPERATOR documented as of this encounter Care Teams Edge Grinder Relationship Specialty [place] [address] [place] [address] PCP - General Family Practice 11/21/16 [place] [address] [place] [address] [address] Assigned PCP 01/30/21 07/11/24 Stephie Mahoney MD [address] [place] [address] Endocrinology, Diabetes, and Metabolism 04/22/21 Federica Foster RN [address] [place] [address] Bottom Finisher Diabetes Education 04/22/[address] [place] [address] Bottom Finisher Nutrition 04/22/21 Stephie Mahoney MD [address] [place] [address] Assigned Endocrinology Provider 05/08/21 Olga Garcia RN Specialty Authorizer INTERNAL MEDICINE - ENDOCRINOLOGY, DIABETES & METABOLISM 09/29/22 Junior Chavira MD [address] [place] 797985 Cardiovascular Disease 05/29/24 [place] [address] [place] [address] Assigned PCP 07/12/24 Junior Chavira MD [address] [place] 527355 Assigned Heart and Vascular Provider 08/11/24 Coni Dhaliwal, COREY [address] [place] [address] Nurse Practitioner Psychiatry & Neurology Vascular Neurology 11/04/24 Anel Long NP [address] [place], [place] [address] Nurse Practitioner Psychiatry & Neurology Vascular Neurology 11/04/24 Angel Balbuena MD 909 [place], [place] 528[address] Assigned Heart and Vascular Surgical Provider 12/10/24 documented as of this encounter
--- OUTSIDE RECORDS SUMMARY | 2024-12-11 23:52 | XMS_ITS | Encounter Summary ---
Author Organization [facility] Address [address] [place] [address]. [place] [address] Care Team Providers Care President Practicing Urologist Name Role Phone Wilber Vidales MD Primary Care Provider [phone] Wilber Vidales MD Unavailable Stephie Mahoney MD Unavailable [phone] Federica Foster RN Unavailable [phone] Unavailable [phone] Stephie Mahoney MD Unavailable [phone] Olga Garcia RN Unavailable [phone] Junior Chavira MD Unavailable [phone] Shantel Walker MD Unavailable [phone] Junior Chavira MD Unavailable [phone] Coni Dhaliwal CONDOMINIUM ASSOCIATION MANAGER Unavailable [phone] Anel Long NP Unavailable [phone] Angel Balbuena MD Unavailable [phone] Encounter Details Date Type Department Care Team (Late st Contact Info) Description 01/28/2024 [facility] Diabetes Education [address]rd [place] [address] Jana Pineda, RD, LD 909 [facility] [address], [place] [address] Social History Tobacco Use Types Packs/Day Years [...] How often do you attend chur or mosque services? 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 6545 [facility] 450 [place] [phone] Cyrus Aleman MD [address] [place] [address] 476615 01/27/2025 10:00 AM CDT Office Visit [facility] Neurology [facility] [address] [place] [address] 200 [place] [phone] Anel Long, TRIAL LAWYER [address] [place], [place] [address] Coni Dhaliwal, CONDOMINIUM ASSOCIATION MANAGER [address] [facility] 450 [place], [place] [address] 04/14/2025 11:15 AM CDT Office Visit [facility] Heart [facility] 14715 [facility] [address] [place] [phone] Inessa Esteves DO [address] [place], [place] [address] 06/05/2025 12:30 PM CDT Office Visit [facility] Endocrinology [address] [address] Stephie Mahoney MD [address] [place] [address] 101 [place], [place] 6[address] 11/13/2025 11:00 AM CDT Virtual Visit [facility] Endocrinology [address] [phone] Stephie Mahoney MD [address] 677125 documented as of this encounter Visit Diagnoses Not on filedocumented in this encounter Additional Health Concerns Infection Onset Date Last Indicated Resolved Time Rule Out COVID-19 10/12/2024 10/12/2024 10/12/2024 11:31 AM SUPERVISOR FUR FLOOR WORKER documented as of this encounter Care Teams President Practicing Urologist Relationship Specialty [place] [address] [facility] [place] [address] PCP - General Family Practice 11/21/16 [place] [address] [place] [address] Assigned PCP 01/30/21 07/11/24 Stephie Mahoney MD [address] [place] [address] Endocrinology, Diabetes, and Metabolism 04/22/21 Federica Foster, RN [address] [place] [address] Crop Grain Or Livestock Farmer Diabetes Education 04/22/[address] [place] [address] Crop Grain Or Livestock Farmer Nutrition 04/22/21 Stephie Mahoney MD [address] [place] [address] Assigned Endocrinology Provider 05/08/21 Olga Garcia RN Specialty Spanner Operator INTERNAL MEDICINE - ENDOCRINOLOGY, DIABETES & METABOLISM 09/29/22 Junior Chavira MD [address] [place], [place] 7880[address] Cardiovascular Disease 05/29/24 [place] [address] [place] [address] Assigned PCP 07/12/24 Junior Chavira MD [address] [place] 602365 Assigned Heart and Vascular Provider 08/11/24 Coni Dhaliwal CNP [address] [place] 767025 Nurse Practitioner Psychiatry & Neurology Vascular Neurology 11/04/24 Anel Long NP [address] [place] [address]95 Nurse Practitioner Psychiatry & Neurology Vascular Neurology 11/04/24 Angel Balbuena MD [address] [place] [address] 935595 Assigned Heart and Vascular Surgical Provider 12/10/24 documented as of this encounter
--- OUTSIDE RECORDS SUMMARY | 2024-12-11 23:52 | XMS_ITS | Encounter Summary ---
Author Organization [facility] Address [address] [place] [address]. [place] [address] Care Team Providers Care Pipe Joints Supervisor Name Role Phone Wilber Vidales MD Primary Care Provider [phone] Wilber Vidales MD Unavailable Matt Baez MD Unavailable [phone] Wilber Vidales MD Unavailable Wilber Vidales MD Unavailable Stephie Mahoney MD Unavailable [phone] Federica Foster RN Unavailable [phone] Unavailable [phone] Stephie Mahoney MD Unavailable [phone] Olga Garcia RN Unavailable [phone] Matt Baez MD Unavailable Junior Chavira MD Unavailable [phone] Shantel Walker MD Unavailable [phone] Junior Chavira MD Unavailable [phone] Coni Dhaliwal CNP Unavailable [phone] Anel Long NP Unavailable [phone] Angel Balbuena MD Unavailable [phone] Encounter Details Date Type Department Care Team (Late st Contact Info) Description 10/01/2019 [facility] Medical Advice [facility] Heart [facility] [address] [facility] [address] [place] [address] Matt Baez MD [address] [facility] [address] [place] [id number] Social History Tobacco Use Types Packs/Day Years [...] and Family Once a week 03/17/2019 Attends Restorationist Services More than 4 times per year [...] Answer Date Recorded PHQ-2 Score 0 08/27/2018 [facility] of Occupat ional Health - Occupational Stress [...] AM CDT 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 Laboratory [address] [place] [phone] 12/23/2024 4:00 PM CDT Office Visit [address] [phone] Cyrus Aleman MD [address] [place] [address] 879775 01/27/2025 10:00 AM CDT Office Visit [facility] Neurology [facility] [address] [place] [address] 200 [place] [address] Anel Long, PROSTHETIC AIDE 9779 [place], [place] 982985 Coni Dhaliwal, RESIDENT SERVICES MANAGER [address] [address] 04/14/2025 11:15 AM CDT Office Visit [facility] Heart [facility] [address] [facility] [address] [place] [address] Inessa Esteves [address] [place] [address] 06/05/2025 12:30 PM CDT Office Visit [facility] Endocrinology [address] [phone] Stephie Mahoney MD [address] [place] [address] 11/13/2025 11:00 AM CDT Virtual Visit [facility] Endocrinology [address] [phone] Stephie Mahoney MD [address] [place] [address] documented as of this encounter Visit Diagnoses Not on filedocumented in this encounter Additional Health Concerns Infection Onset Date Last Indicated Resolved Time Rule Out COVID-19 03/10/2022 03/10/2022 03/10/2022 1:37 AM CDT COVID-19 03/10/2022 03/10/2022 03/31/2022 11:3 9 PM CDT Rule Out COVID-19 10/12/2024 10/12/2024 10/12/2024 11:31 AM SYRUP MAKER COOK documented as of this encounter Care Teams Pipe Joints Supervisor Relationship Specialty [place] [address] [address] [address] PCP - General Family Practice 11/21/16 [place] [address] [place] [address] [address] Assigned PCP 10/31/20 01/29/21 Matt Baez MD [address] [facility] [address] [place] [address] Assigned Heart and Vascular Provider 06/11/20 06/23/22 [place] [address] [address] [place] [address] Assigned PCP 11/02/16 10/30/20 [place] [address] [place] [address] Assigned PCP 01/30/21 07/11/24 Stephie Mahoney MD [address] [place] [address] Endocrinology, Diabetes, and Metabolism 04/22/21 Federica Foster RN [address] [place] [address] Manager Labor Relations Diabetes Education 04/22/[address] [place] [address] Manager Labor Relations Nutrition 04/22/21 Stephie Mahoney MD [address] [place] [address] 712805 Assigned Endocrinology Provider 05/08/21 Olga Garcia RN Specialty Drilling Plant Operator INTERNAL MEDICINE - ENDOCRINOLOGY, DIABETES & METABOLISM 09/29/22 Matt Baez MD [address] [place] [address] Assigned Heart and Vascular Provider 12/23/22 05/04/23 Junior Chavria MD [address] [place] [address] Cardiovascular Disease 05/29/24 [place] [address] [place], [place] [address] Assigned PCP 07/12/24 Junior Chavira MD [address] [place] [address] Assigned Heart and Vascular Provider 08/11/24 Coni Dhaliwal CNP [address] [place] [address]85 Nurse Practitioner Psychiatry & Neurology Vascular Neurology 11/04/24 Anel Long PROSTHETIC AIDE [address] [place], [place] [address] Nurse Practitioner Psychiatry & Neurology Vascular Neurology 11/04/24 Angel Balbuena MD [address] [place], [place] [address]V[place] [place], [place] [address] Assigned Heart and Vascular Surgical Provider 12/10/24 documented as of this encounter
--- OUTSIDE RECORDS SUMMARY | 2024-12-11 23:52 | XMS_ITS | Encounter Summary ---
Author Organization [facility] Address [address] [place] [address]. [place] [address] Care Team Providers Care Sales Development Consultant Name Role Phone Wilber Vidales MD Primary Care Provider [phone] Wilber Vidales MD Unavailable Matt Baez MD Unavailable [phone] Wilber Vidales MD Unavailable Wilber Vidales MD Unavailable Stephie Mahoney MD Unavailable [phone] Federica Foster RN Unavailable [phone] Unavailable [phone] Stephie Mahoney MD Unavailable [phone] Olga Garcia RN Unavailable [phone] Matt Baez MD Unavailable Junior Chavira MD Unavailable [phone] Shantel Walker MD Unavailable [phone] Junior Chavira MD Unavailable [phone] Coni Dhaliwal CNP Unavailable [phone] Anel Long NP Unavailable [phone] Angel Balbuena MD Unavailable [phone] Encounter Details Date Type Department Care Team (Late st Contact Info) Description 07/02/2019 MyC Medical Advice [facility] PHYS STANDARD [address] [place] [phone] Tiarra Poole, RN Social History Tobacco Use [...] and Family Once a week 03/17/2019 Attends Caodaism Services More than 4 times per year [...] Answer Date Recorded PHQ-2 Score 0 08/27/2018 [facility] Check of Occupat ional Health - Occupational Stress [...] AM CDT 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 Gender Identity Male 03/03/2019 9:24 PM CDT Sexual Orientation Straight 03/03/2019 9: 24 PM CDT documented as of this encounter Plan of Treatment Upcoming Encounters Date Type Department Care Team (Late st Contact Info) Description 12/17/2024 9:30 AM CDT Lab [facility] [address] [place] [address] 12/23/2024 4:00 PM CDT Office Visit [facility] [address] [place] [address] [phone] Cyrus Aleman MD [address] [place] [address] 276385 01/27/2025 10:00 AM CDT Office Visit [facility] Neurology [facility] [address] [place] [address] 200 [place] [phone] Anel Long NP 6501 [place], [place] 55[address] Coni Dhaliwal CNP [address] [address] 04/14/2025 11:15 AM CDT Office Visit [facility] Heart [facility] [address] [facility] [address] [place] [address] Inessa Esteves DO [address] [place] [address] 06/05/2025 12:30 PM CDT Office Visit [facility] Endocrinology [facility] [address] [place] [address] [phone] Stephie Mahoney MD [address] [place] [address] 11/13/2025 11:00 AM CDT Virtual Visit [facility] Endocrinology [address] [phone] Stephie Mahoney MD [address] [place] [address] [phone] documented as of this encounter Visit Diagnoses Not on filedocumented in this encounter Additional Health Concerns Infection Onset Date Last Indicated Resolved Time Rule Out COVID-19 03/10/2022 03/10/2022 03/10/2022 1:37 AM CDT COVID-19 03/10/2022 03/10/2022 03/31/2022 11:3 9 PM CDT Rule Out COVID-19 10/12/2024 10/12/2024 10/12/2024 11:31 AM MS SQL DBA documented as of this encounter Care Teams Sales Development Consultant Relationship Specialty [place] [address] [address] [address] PCP - General Family Practice 11/21/16 [place] [address] [address] [address] Assigned PCP 10/31/20 01/29/21 Matt Baez MD [address] [place] [address] Assigned Heart and Vascular Provider 06/11/20 06/23/22 [place] [address] [place] [address] Assigned PCP 11/02/16 10/30/20 [place] [address] [place] [address] Assigned PCP 01/30/21 07/11/24 Stephie Mahoney MD [address] [place] [address] 466045 Endocrinology, Diabetes, and Metabolism 04/22/21 Federica Foster RN [address] [place] [address] [phone] Inside Contractor Sales Diabetes Education 04/22/[address] [place] [address] Inside Contractor Sales Nutrition 04/22/21 Stephie Mahoney MD [address] [place] [address] Assigned Endocrinology Provider 05/08/21 Olga Garcia, RN Specialty Solar Sales Rep INTERNAL MEDICINE - ENDOCRINOLOGY, DIABETES & METABOLISM 09/29/22 Matt Baez MD [address] [place] [address] Assigned Heart and Vascular Provider 12/23/22 05/04/23 Junior Chavira MD [address] [place], [place] 6200[address] Cardiovascular Disease 05/29/24 [place] [address] [place], [place] 67040[address] Assigned PCP 07/12/24 Junior Chavira MD [address] [place], [place] [address]85 Assigned Heart and Vascular Provider 08/11/24 Coni Dhaliwal CNP [address] [place] 546005 Nurse Practitioner Psychiatry & Neurology Vascular Neurology 11/04/24 Anel Long NP [address] [place] 272445 Nurse Practitioner Psychiatry & Neurology Vascular Neurology 11/04/24 Angel Balbuena MD [address] [place] [address] 277065 Assigned Heart and Vascular Surgical Provider 12/10/24 documented as of this encounter
--- OUTSIDE RECORDS SUMMARY | 2024-12-11 23:52 | XMS_ITS | Encounter Summary ---
Author Organization [facility] Address [address] [place] [address]. [place] [address] Care Team Providers Care Construction Sales Manager Name Role Phone Wilber Vidales MD Primary Care Provider [phone] Wilber Vidales MD Unavailable Matt Baez MD Unavailable [phone] Wilber Vidales MD Unavailable Wilber Vidales MD Unavailable Stephie Mahoney MD Unavailable [phone] Federica Foster RN Unavailable [phone] Unavailable [phone] Stephie Mahoney MD Unavailable [phone] Olga Garcia RN Unavailable [phone] Matt Baez MD Unavailable Junior Chavira MD Unavailable [phone] Shantel Walker MD Unavailable [phone] Junior Chavira MD Unavailable [phone] Coni Dhaliwal CNP Unavailable [phone] Anel Long NP Unavailable Angel Balbuena MD Unavailable [phone] Encounter Details Date Type Department Care Team (Late st Contact Info) Description 07/14/2019 MyC Medical Advice [facility] Cardiothoracic [address] [place] [address] Ej Haines MD [address] [facility] 207 [place] [address] Social History Tobacco Use Types [...] and Family Once a week 03/17/2019 Attends Yarsani Services More than 4 times per year [...] Answer Date Recorded PHQ-2 Score 0 08/27/2018 [facility] [place] of Occupat ional Health - Occupational [...] AM CDT 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 Gender Identity Male 03/03/2019 9:24 PM CDT Sexual Orientation Straight 03/03/2019 9: 24 PM CDT documented as of this encounter Plan of Treatment Upcoming Encounters Date Type Department Care Team (Late st Contact Info) Description 12/17/2024 9:30 AM CDT Lab [facility] Laboratory [address] [place] [phone] 12/23/2024 4:00 PM CDT Office Visit [address] [phone] Cyrus Aleman MD [address] [place] [address] [phone] 01/27/2025 10:00 AM CDT Office Visit [facility] Neurology [address] [place] [phone] Anel Long, BILLET DRILLER 4135 [place], [place] 259205 Coni Dhaliwal, COREY [address] 807215 04/14/2025 11:15 AM CDT Office Visit [facility] Heart [facility] [address] [facility] [address] [place] [phone] LeroyreesevannesaEliazarInessasergio FunesDO [address] [place] [address] 06/05/2025 12:30 PM CDT Office Visit [facility] Endocrinology [address] [place] [phone] Stephie Mahoney MD [address] [place] [address] 714705 11/13/2025 11:00 AM CDT Virtual Visit [facility] Endocrinology [address] [phone] Stephie Mahoney MD [address] [place] [address] [phone] documented as of this encounter Visit Diagnoses Not on filedocumented in this encounter Additional Health Concerns Infection Onset Date Last Indicated Resolved Time Rule Out COVID-19 03/10/2022 03/10/2022 03/10/2022 1:37 AM CDT COVID-19 03/10/2022 03/10/2022 03/31/2022 11:3 9 PM CDT Rule Out COVID-19 10/12/2024 10/12/2024 10/12/2024 11:31 AM COAL LOADER documented as of this encounter Care Teams Construction Sales Manager Relationship Specialty [place] [address] [address] [address] PCP - General Family Practice 11/21/16 [place] [address] [address] [address] Assigned PCP 10/31/20 01/29/21 Matt Baez MD [address] [facility] [address] [place] [address] Assigned Heart and Vascular Provider 06/11/20 06/23/22 [place] [address] [place] [address] Assigned PCP 11/02/16 10/30/20 [place] [address] [place] [address] Assigned PCP 01/30/21 07/11/24 Stephie Mahoney MD [address] [place] [address] Endocrinology, Diabetes, and Metabolism 04/22/21 Federica Foster RN [address] [place] [address] Weaving Instructor Diabetes Education 04/22/[address] [place] [address] Weaving Instructor Nutrition 04/22/21 Stephie Mahoney MD [address] [place] [address] Assigned Endocrinology Provider 05/08/21 Olga Garcia RN Specialty Sole Tier INTERNAL MEDICINE - ENDOCRINOLOGY, DIABETES & METABOLISM 09/29/22 Matt Baez MD [address] [place] [address] Assigned Heart and Vascular Provider 12/23/22 05/04/23 Junior Chavira MD [address] [place] 550935 Cardiovascular Disease 05/29/24 [place] [address] [place] [address] Assigned PCP 07/12/24 Junior Chavira MD [address] [place] [address] Assigned Heart and Vascular Provider 08/11/24 Coni Dhaliwal CNP [address] [place] 603675 Nurse Practitioner Psychiatry & Neurology Vascular Neurology 11/04/24 Anel Long NP [address] [place] [address] Nurse Practitioner Psychiatry & Neurology Vascular Neurology 11/04/24 Angel Balbuena MD 909 [facility] [place], [place] [address] Assigned Heart and Vascular Surgical Provider 12/10/24 documented as of this encounter
--- OUTSIDE RECORDS SUMMARY | 2024-12-11 23:52 | XMS_ITS | Encounter Summary ---
Author Organization [facility] Address [address] [place] [address]. [place] [address] Care Team Providers Care Law Librarian Name Role Phone Wilber Vidales MD Primary Care Provider [phone] Matt Baez MD Unavailable Wilber Vidales MD Unavailable Stephie Mahoney MD Unavailable Federica Foster RN Unavailable Tova Welch RD Unavailable [phone] Stephie Mahoney MD Unavailable Olga Garcia RN Unavailable [phone] Matt Baez MD Unavailable [phone] Junior Chavira MD Unavailable [phone] Shantel Walker MD Unavailable [phone] Junior Chavira MD Unavailable [phone] Coni Dhaliwal CNP Unavailable [phone] Anel Long NP Unavailable [phone] Angel Balbuena MD Unavailable [phone] Encounter Details Date Type Department Care Team (Late st Contact Info) Description 12/14/2021 MyC Medical Advice [facility] Diabetes Education [address] 3rd [place] [address] Federica Foster, RN 420 [place] [address] Social History Tobacco Use Types Packs/Day Years [...] week 06/27/2021 How often do you attend [facility] or caodaism services? 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 6545 [facility] 450 [place] [phone] Cyrus Aleman MD [address] [place] [address] [phone] 01/27/2025 10:00 AM CDT Office Visit [facility] Neurology [address] [place] [phone] Anel Long, BLIND ESCORT [address] [place] [address] Coni Dhaliwal, COREY [address] [facility] 450 [place], [place] [address] 04/14/2025 11:15 AM CDT Office Visit [facility] Heart [facility] [address] [facility] [address] [place] [phone] Inessa Esteves DO [address] [place], [place] [address] 06/05/2025 12:30 PM CDT Office Visit [facility] Endocrinology Clinic [place] 909 [facility] 3rd [place] [phone] Stephie Mahoney MD 420 [facility] 101 [place] [address] 11/13/2025 11:00 AM CDT Virtual Visit [facility] Endocrinology Clinic [place] 862219 [facility] [address] 3rd [place] [phone] Stephie Mahoney MD [address] [address] documented as of this encounter Visit Diagnoses Not on filedocumented in this encounter Additional Health Concerns Infection Onset Date Last Indicated Resolved Time Rule Out COVID-19 03/10/2022 03/10/2022 03/10/2022 1:37 AM CDT COVID-19 03/10/2022 03/10/2022 03/31/2022 11:3 9 PM CDT Rule Out COVID-19 10/12/2024 10/12/2024 10/12/2024 11:31 AM SHOE DESIGNER documented as of this encounter Care Teams Law Librarian Relationship Specialty [place] [address] [place] [address] PCP - General Family Practice 11/21/16 Matt Baez MD [address] [facility] [address] [place], [place] [address] Assigned Heart and Vascular Provider 06/11/20 06/23/22 [place] [address] [place] [address] Assigned PCP 01/30/21 07/11/24 Stephie Mahoney MD [address] 877215 Endocrinology, Diabetes, and Metabolism 04/22/21 Federica Foster, RN 420 [place], [place] 639815 Milk Pasteurizer Diabetes Education 04/22/[address] [place] [address] Milk Pasteurizer Nutrition 04/22/21 Stephie Mahoney MD [address] [place] [address] 101 [place], [place] 161925 Assigned Endocrinology Provider 05/08/21 Olga Garcia, RN Specialty Biscuit Packer INTERNAL MEDICINE - ENDOCRINOLOGY, DIABETES & METABOLISM 09/29/22 Matt Baez MD [address] [place] [address] Assigned Heart and Vascular Provider 12/23/22 05/04/23 Junior Chavira MD [address] [place] 11[address] Cardiovascular Disease 05/29/24 [place] [address] [place] [address] Assigned PCP 07/12/24 Junior Chavira MD [address] [place], [place] 755535 Assigned Heart and Vascular Provider 08/11/24 Coni Dhaliwal, COLOR CONTROL SUPERVISOR [address] [place] 329585 Nurse Practitioner Psychiatry & Neurology Vascular Neurology 11/04/24 Anel Long BLIND ESCORT [address] [place] [address] Nurse Practitioner Psychiatry & Neurology Vascular Neurology 11/04/24 Angel Balbuena MD [address] [place] [address] Assigned Heart and Vascular Surgical Provider 12/10/24 documented as of this encounter
--- OUTSIDE RECORDS SUMMARY | 2024-12-11 23:52 | XMS_ITS | Encounter Summary ---
Author Organization [facility] Address [address] [place] [address]. [place] [address] Care Team Providers Care Safety Coordinator Name Role Phone Wilber Vidales MD Primary Care Provider [phone] Wilber Vidales MD Unavailable Stephie Mahoney MD Unavailable [phone] Federica Foster RN Unavailable [phone] Unavailable [phone] Stephie Mahoney MD Unavailable [phone] Olga Garcia RN Unavailable [phone] Junior Chavira MD Unavailable [phone] Shantel Walker MD Unavailable [phone] Junior Chavira MD Unavailable [phone] Coni Dhaliwal SUPPLY COORDINATOR Unavailable [phone] Anel Long NP Unavailable [phone] Angel Balbuena MD Unavailable Encounter Details Date Type Department Care Team (Late st Contact Info) Description 04/25/[address] [facility] Endocrinology Clinic [place] 856149 [facility] 3rd [place] [address] Dinah Velazquez Social History Tobacco [...] often do you attend chur ch or anglican services? 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 Neurology [facility] [address] [facility] 200 [place] [phone] Anel Long, BESSEMER CONVERTER OPERATOR [address] [place], [place] [address] Coni Dhaliwal CNP 4109 [facility] 450 [place], [place] [address] 04/14/2025 11:15 AM CDT Office [facility] Heart [facility] [address] [facility] [address] [place] [phone] Inessa Esteves DO [address] [place], [place] [address] 06/05/2025 12:30 PM CDT Office Visit [facility] Endocrinology Clinic [address] [phone] Stephie Mahoney MD [address] 594825 11/13/2025 11:00 AM CDT Virtual Visit [facility] Endocrinology [address] [phone] Stephie Mahoney MD [address] 683115 documented as of this encounter Visit Diagnoses Not on filedocumented in this encounter Additional Health Concerns Infection Onset Date Last Indicated Resolved Time Rule Out COVID-19 10/12/2024 10/12/2024 10/12/2024 11:31 AM SIEBEL ADMINISTRATOR documented as of this encounter Care Teams Safety Coordinator Relationship Specialty [place] [address] [address] [address] PCP - General Family Practice 11/21/16 [place] [address] [address] [address] Assigned PCP 01/30/21 07/11/24 Stephie Mahoney MD [address] [place] [address] [phone] Endocrinology, Diabetes, and Metabolism 04/22/21 Federica Foster RN [address] [place] [address] [phone] Schedule Hanger Diabetes Education 04/22/[address] [place] [address] [phone] Schedule Hanger Nutrition 04/22/21 Stephie Mahoney MD [address] 858815 Assigned Endocrinology Provider 05/08/21 Olga Garcia, RN Specialty Stamp Pad Finisher INTERNAL MEDICINE - ENDOCRINOLOGY, DIABETES & METABOLISM 09/29/22 Junior Chavira MD [address] [place] [address] Cardiovascular Disease 05/29/24 [place] [address] [place] [address] Assigned PCP 07/12/24 Junior Chavira MD [address] [place] [address] Assigned Heart and Vascular Provider 08/11/24 Coni Dhaliwal CNP [address] [place] [address] Nurse Practitioner Psychiatry & Neurology Vascular Neurology 11/04/24 Anel Long NP [address] [place] [address] Nurse Practitioner Psychiatry & Neurology Vascular Neurology 11/04/24 Angel Balbuena MD [address] [place] [address] Assigned Heart and Vascular Surgical Provider 12/10/24 documented as of this encounter
--- OUTSIDE RECORDS SUMMARY | 2024-12-11 23:52 | XMS_ITS | Encounter Summary ---
Author Organization [place] Address [address] [place] [address]. [place] [address] Care Team Providers Care Prn Physical Therapist Name Role Phone Wilber Vidales MD Primary Care Provider [phone] Wilber Vidales MD Unavailable Stephie Mahoney MD Unavailable [phone] Federica Foster RN Unavailable +[phone] Unavailable [phone] Stephie Mahoney MD Unavailable [phone] Olga Garcia RN Unavailable [phone] Junior Chavira MD Unavailable [phone] Shantel Walker MD Unavailable +[phone] Junior Chavira MD Unavailable [phone] Coni Dhaliwal REGIONAL REHABILITATION DIRECTOR Unavailable +[phone] Anel Long NP Unavailable [phone] Angel Balbuena MD Unavailable [phone] Encounter Details Date Type Department Care Team (Late st Contact Info) Description 07/02/2024 [facility] End[facility]inology Clinic [place] 824539 [facility] 3rd [place] [address] Stephie Mahoney MD [address] [facility] 101 [place], [place] [address] Social History Tobacco Use Types Packs/Day Years [...] How often do you attend chur or muslim services? More than 4 times per year [...] Date Recorded PHQ-2 Score 0 11/23/2023 [facility] Hospiceat ional Health - Occupational Stress [...] in an overnight half-way, or couch-surfing.) Yes 07/12/2023 Are you worried [...] AM CDT 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 GUEST SERVICES DIRECTOR Gender Identity Male 03/03/2019 9:24 PM CDT Sexual Orientation Straight 03/03/2019 9: 24 PM CDT documented as of this encounter Plan of Treatment Upcoming Encounters Date Type Department Care Team (Late st Contact Info) Description 12/17/2024 9:30 AM CDT Lab [facility] [address] [place] [phone] 12/23/2024 4:00 PM CDT Office Visit [facility] 6545 [facility] 450 [place] [phone] Cyrus Aleman MD [address] [place] [address] 01/27/2025 10:00 AM CDT Office Visit [facility] Neurology [facility] [address] [place] [address] 200 [place] [phone] Anel Long COMPONENT INSPECTOR [address] [place], [place] [address] Coni Dhaliwal, REGIONAL REHABILITATION DIRECTOR [address] [facility] 450 [place], [place] [address] 04/14/2025 11:15 AM CDT Office Visit [facility] Heart [facility] [address] [facility] [address] [place] [phone] Inessa Esteves, [address] [place], [place] [address] 06/05/2025 12:30 PM CDT Office Visit [facility] Endocrinology [address]rd [place] [address] Stephie Mahoney MD [address] [place] [address] 162585 11/13/2025 11:00 AM CDT Virtual Visit [facility] Endocrinology [address]rd [place] [address] Stephie Mahoney MD [address] [place] [address] documented as of this encounter Visit Diagnoses Not on filedocumented in this encounter Additional Health Concerns Infection Onset Date Last Indicated Resolved Time Rule Out COVID-19 10/12/2024 10/12/2024 10/12/2024 11:31 AM GUEST SERVICES DIRECTOR documented as of this encounter Care Teams Prn Physical Therapist Relationship Specialty [place] [address] [place] [address] PCP - General Family Practice 11/21/16 [place] [address] [place] [address] Assigned PCP 01/30/21 07/11/24 Stephie Mahoney MD [address] [place] [address] Endocrinology, Diabetes, and Metabolism 04/22/21 Federica [place], RN [address] [place] [address] [employer] Layup Line Back Feeder Diabetes Education 04/22/[address] [place] [address] Plywood Layup Line Back Feeder Nutrition 04/22/21 Stephie Mahoney MD [address] [place] [address] Assigned Endocrinology Provider 05/08/21 Olga Garcia RN Specialty Industrial Engineering Director INTERNAL MEDICINE - ENDOCRINOLOGY, DIABETES & METABOLISM 09/29/22 Junior Chavira MD [address] [place] [address] Cardiovascular Disease 05/29/24 [place] [address] [place] [address] Assigned PCP 07/12/24 Junior Chavira MD [address] [place] 6[address]95 Assigned Heart and Vascular Provider 08/11/24 Coni Dhaliwal, COREY [address] [place] [address] Nurse Practitioner Psychiatry & Neurology Vascular Neurology 11/04/24 Anel Long NP [address] [place] [address] Nurse Practitioner Psychiatry & Neurology Vascular Neurology 11/04/24 Angel Balbuena MD [address] [facility] [place], [place] [address] Assigned Heart and Vascular Surgical Provider 12/10/24 documented as of this encounter
--- OUTSIDE RECORDS SUMMARY | 2024-12-11 23:52 | XMS_ITS | Encounter Summary ---
Author Organization [place] Address [address] [place] [address]. [place] [address] Care Team Providers Care Farm Mortgage Agent Name Role Phone Wilber Vidales MD Primary Care Provider [phone] Wilber Vidales MD Unavailable Stephie Mahoney MD Unavailable [phone] Federica [place] RN Unavailable [phone] Unavailable [phone] Stephie Mahoney MD Unavailable [phone] Olga Garcia RN Unavailable [phone] Junior Chavira MD Unavailable [phone] Shantel Walker MD Unavailable [phone] Junior Chavira MD Unavailable [phone] Coni Dhaliwal CNP Unavailable [phone] Anel Long NP Unavailable [phone] Angel Balbuena MD Unavailable Encounter Details Date Type Department Care Team (Late st Contact Info) Description 07/07/2024 [facility] [address] [place] [address] Stew Lovell, MA Social History Tobacco Use Types Packs/Day Years [...] Answer Date Recorded PHQ-2 Score 0 11/23/2023 [facility] Occupat ional Health - [...] AM CDT 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 SLOT EDITOR Gender Identity Male 03/03/2019 9:24 PM CDT Sexual Orientation Straight 03/03/2019 9: 24 PM CDT documented as of this encounter Plan of Treatment Upcoming Encounters Date Type Department Care Team (Late st Contact Info) Description 12/17/2024 9:30 AM CDT [facility] [address] [place] [address] 12/23/2024 4:00 PM CDT Office Visit [facility] 6545 [facility] [address] [place] [phone] Cyrus Aleman MD [address] [place] [address] 239255 01/27/2025 10:00 AM CDT Office Visit [facility] Neurology [facility] 16[address] [facility] [address] [place] [phone] Anel Long, OPEN DEVELOPER OPERATOR [address] [place], [place] [address] Coni Dhaliwal CNP [address] [facility] 450 [place], [place] [address] 04/14/2025 11:15 AM CDT Office Visit [facility] Heart [facility] [address] [facility] [address] [place] [phone] Inessa Esteves DO [address] [place], [place] [address] 06/05/2025 12:30 PM CDT Office [facility] [address] 3rd [place] [phone] Stephie Mahoney MD [address] [place] [address] 613945 11/13/2025 11:00 AM CDT Virtual Visit [facility] [address] [place] [phone] Stephie Mahoney MD [address] [place] [address] 601685 documented as of this encounter Visit Diagnoses Not on filedocumented in this encounter Additional Health Concerns Infection Onset Date Last Indicated Resolved Time Rule Out COVID-19 10/12/2024 10/12/2024 10/12/2024 11:31 AM SLOT EDITOR documented as of this encounter Care Teams Farm Mortgage Agent Relationship Specialty [place] [address] [address] [address] PCP - General Family Practice 11/21/16 [place] [address] [address] [address] Assigned PCP 01/30/21 07/11/24 Stephie Mahoney MD [address] [place] [address] 641395 Endocrinology, Diabetes, and Metabolism 04/22/21 Federica [place] RN [address] [place] [address] 304765 Conveyor Installer Diabetes Education 04/22/[address] [place] [address] 476374 Conveyor Installer Nutrition 04/22/21 Stephie Mahoney MD [address] [place] [address] 964555 Assigned Endocrinology Provider 05/08/21 Olga Garcia, RN Specialty Pharmacy Laboratory Technician INTERNAL MEDICINE - ENDOCRINOLOGY, DIABETES & METABOLISM 09/29/22 Junior Chavira MD [address] [place] 948115 Cardiovascular Disease 05/29/24 [place] [address] [place] [address] Assigned PCP 07/12/24 Junior Chavira MD [address] [place] 64[address]15 Assigned Heart and Vascular Provider 08/11/24 Coni Dhaliwal CNP [address] [place] [address] Nurse Practitioner Psychiatry & Neurology Vascular Neurology 11/04/24 Anel Long NP [address] [place] [address] Nurse Practitioner Psychiatry & Neurology Vascular Neurology 11/04/24 Angel Balbuena MD 909 [place], [place] [address] Assigned Heart and Vascular Surgical Provider 12/10/24 documented as of this encounter
--- OUTSIDE RECORDS SUMMARY | 2024-12-11 23:52 | XMS_ITS | Encounter Summary ---
Author Organization [place] Address [address] [place] [address]. [place] [address] Care Team Providers Care Physician General Practice Name Role Phone Wilber Vidales MD Primary Care Provider [phone] Wilber Vidales MD Unavailable Matt Baez MD Unavailable [phone] Wilber Vidales MD Unavailable Wilber Vidales MD Unavailable Stephie Mahoney MD Unavailable [phone] Federica [place] RN Unavailable [phone] Unavailable [phone] Stephie Mahoney MD Unavailable [phone] Olga Garcia RN Unavailable [phone] Matt Baez MD Unavailable Junior Chavira MD Unavailable [phone] Shantel Walker MD Unavailable [phone] Junior Chavira MD Unavailable [phone] Coni Dhaliwal CNP Unavailable [phone] Anel Long NP Unavailable [phone] Angel Balbuena MD Unavailable [phone] Encounter Details Date Type Department Care Team (Late st Contact Info) Description 07/02/2019 [facility] Medical Advice [facility] [address] [place] [address] Tiarra Poole, RN Social History Tobacco Use [...] and Family Once a week 03/17/2019 Attends Latter Day Services More than 4 times per year [...] Answer Date Recorded PHQ-2 Score 0 08/27/2018 [facility] [place] of Occupat ional Health - Occupational Stress [...] AM CDT 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 TRIAGE REGISTER NURSE Gender Identity Male 03/03/2019 9:24 PM CDT Sexual Orientation Straight 03/03/2019 9: 24 PM CDT documented as of this encounter Plan of Treatment Upcoming Encounters Date Type Department Care Team (Late st Contact Info) Description 12/17/2024 9:30 AM CDT Lab [facility] Laboratory [address] [place] [address] 12/23/2024 4:00 PM CDT Office Visit [facility] [address] [place] [phone] Cyrus Aleman MD [address] [place] [address] 485385 01/27/2025 10:00 AM CDT Office Visit [facility] Neurology [facility] [address] [place] [address] 200 [place] [phone] Anel Long NP 9202 [place], [place] [address] Coni Dhaliwal CNP [address] [address] 04/14/2025 11:15 AM CDT Office Visit [facility] Heart [facility] [address] [facility] [address] [place] [address] Inessa Esteves DO [address] [place] [address] 06/05/2025 12:30 PM CDT Office Visit [facility] Endocrinology [facility] [address] [place] [address] [phone] Stephie Mahoney MD [address] [place] [address] 11/13/2025 11:00 AM CDT Virtual Visit [facility] Endocrinology [address] [phone] Stephie Mahoney MD [address] [place] [address] 824805 documented as of this encounter Visit Diagnoses Not on filedocumented in this encounter Additional Health Concerns Infection Onset Date Last Indicated Resolved Time Rule Out COVID-19 03/10/2022 03/10/2022 03/10/2022 1:37 AM CDT COVID-19 03/10/2022 03/10/2022 03/31/2022 11:3 9 PM CDT Rule Out COVID-19 10/12/2024 10/12/2024 10/12/2024 11:31 AM TRIAGE REGISTER NURSE documented as of this encounter Care Teams Physician General Practice Relationship Specialty [place] [address] [address] [address] PCP - General Family Practice 11/21/16 [place] [address] [address] [address] Assigned PCP 10/31/20 01/29/21 Matt Baez MD [address] [place] [address] Assigned Heart and Vascular Provider 06/11/20 06/23/22 [place] [address] [place] [address] Assigned PCP 11/02/16 10/30/20 [place] [address] [place] [address] Assigned PCP 01/30/21 07/11/24 Stephie Mahoney MD [address] [place] [address] 344985 Endocrinology, Diabetes, and Metabolism 04/22/21 Federica [place] RN [address] [place] [address] 493115 Resume Specialist Diabetes Education 04/22/[address] [place] [address] Resume Specialist Nutrition 04/22/21 Stephie Mahoney MD [address] [place] [address] Assigned Endocrinology Provider 05/08/21 Olga Garcia, RN Specialty Drafting Teacher INTERNAL MEDICINE - ENDOCRINOLOGY, DIABETES & METABOLISM 09/29/22 Matt Baez MD [address] [place] [address] Assigned Heart and Vascular Provider 12/23/22 05/04/23 Junior Chavira MD [address] [place], [place] 271075 Cardiovascular Disease 05/29/24 [place] [address] [address] [place], [place] 7121844 Assigned PCP 07/12/24 Junior Chavira MD [address] [place], [place] 5939[address] Assigned Heart and Vascular Provider 08/11/24 Coni Dhaliwal CNP [address] [place] 896135 Nurse Practitioner Psychiatry & Neurology Vascular Neurology 11/04/24 Anel Long NP [address] [place] 64[address]15 Nurse Practitioner Psychiatry & Neurology Vascular Neurology 11/04/24 Angel Balbuena MD [address] [place] [address] 807155 Assigned Heart and Vascular Surgical Provider 12/10/24 documented as of this encounter
--- OUTSIDE RECORDS SUMMARY | 2024-12-11 23:52 | XMS_ITS | Encounter Summary ---
Author Organization [place] Address [address] [place] [address]. [place] [address] Care Team Providers Care Industrial Retrofit Designer Name Role Phone Wilber Vidales MD Primary Care Provider [phone] Wilber Vidales MD Unavailable Matt Baez MD Unavailable [phone] Wilber Vidales MD Unavailable Wilber Vidales MD Unavailable Stephie Mahoney MD Unavailable [phone] Federica Foster RN Unavailable [phone] Unavailable Stephie Mahoney MD Unavailable +[phone] Olga Garcia RN Unavailable [phone] Matt Baez MD Unavailable Junior Chavira MD Unavailable [phone] Shantel Walker MD Unavailable [phone] Junior Chavira MD Unavailable [phone] Coni Dhaliwal CNP Unavailable [phone] Anel Long NP Unavailable [phone] Angel Balbuena MD Unavailable [phone] Encounter Details Date Type Department Care Team (Late st Contact Info) Description 07/01/2019 My[facility] Medical Advice [facility] Cardiothoracic [address] [place] [address] Ej Haines MD [address] [facility] 207 [place] [address] Social History Tobacco Use Types [...] and Family Once a week 03/17/2019 Attends Religion Services More than 4 times per year [...] Answer Date Recorded PHQ-2 Score 0 08/27/2018 [facility] [place] of Occupat ional Health - Occupational Stress [...] AM CDT 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 MANAGER Gender Identity Male 03/03/2019 9:24 PM CDT Sexual Orientation Straight 03/03/2019 9: 24 PM CDT documented as of this encounter Plan of Treatment Upcoming Encounters Date Type Department Care Team (Late st Contact Info) Description 12/17/2024 9:30 AM CDT Lab [facility] Laboratory [address] [place] [phone] 12/23/2024 4:00 PM CDT Office Visit [address] [phone] Cyrus Aleman MD [address] [place] [address] 482355 01/27/2025 10:00 AM CDT Office Visit [facility] Neurology [address] [place] [phone] Anel Long, ANALYZER SALES 4529 [place], [place] [address] Coni Dhaliwal, COREY [address] 493935 04/14/2025 11:15 AM CDT Office Visit [facility] Heart [facility] [address] [facility] [address] [place] [phone] LeroyreesevannesaEliazarInessasergio FunesDO [address] [place] [address] 06/05/2025 12:30 PM CDT Office Visit [facility] Endocrinology [address] [place] [phone] Stephie Mahoney MD [address] [place] [address] 220595 11/13/2025 11:00 AM CDT Virtual Visit [facility] Endocrinology [address] [phone] Stephie Mahoney MD [address] [place] [address] 906175 documented as of this encounter Visit Diagnoses Not on filedocumented in this encounter Additional Health Concerns Infection Onset Date Last Indicated Resolved Time Rule Out COVID-19 03/10/2022 03/10/2022 03/10/2022 1:37 AM CDT COVID-19 03/10/2022 03/10/2022 03/31/2022 11:3 9 PM CDT Rule Out COVID-19 10/12/2024 10/12/2024 10/12/2024 11:31 AM HEALTHCARE MANAGER documented as of this encounter Care Teams Industrial Retrofit Designer Relationship Specialty [place] [address] [address] [address] PCP - General Family Practice 11/21/16 [place] [address] [address] [address] Assigned PCP 10/31/20 01/29/21 Matt Baez MD [address] [facility] [address] [place] [address] Assigned Heart and Vascular Provider 06/11/20 06/23/22 [place] [address] [place] [address] Assigned PCP 11/02/16 10/30/20 [place] [address] [place] [address] Assigned PCP 01/30/21 07/11/24 Stephie Mahoney MD [address] [place] [address] Endocrinology, Diabetes, and Metabolism 04/22/21 Federica [place] RN [address] [place] [address] Payroll And Benefits Manager Diabetes Education 04/22/[address] [place] [address] Payroll And Benefits Manager Nutrition 04/22/21 Stephie Mahoney MD [address] [place] [address] Assigned Endocrinology Provider 05/08/21 Olga Garcia RN Specialty Comptroller INTERNAL MEDICINE - ENDOCRINOLOGY, DIABETES & METABOLISM 09/29/22 Matt Baez MD [address] [place] [address] Assigned Heart and Vascular Provider 12/23/22 05/04/23 Junior Chavira MD [address] [place] [address] Cardiovascular Disease 05/29/24 [place] [address] [place] [address] Assigned PCP 07/12/24 Junior Chavira MD [address] [place] [address] Assigned Heart and Vascular Provider 08/11/24 Coni Dhaliwal CNP [address] [place] [address] Nurse Practitioner Psychiatry & Neurology Vascular Neurology 11/04/24 Anel Long NP [address] [place] [address] Nurse Practitioner Psychiatry & Neurology Vascular Neurology 11/04/24 Angel Balbuena MD 909 [facility] [place] [place] [address] Assigned Heart and Vascular Surgical Provider 12/10/24 documented as of this encounter
--- OUTSIDE RECORDS SUMMARY | 2024-12-11 23:52 | XMS_ITS | Encounter Summary ---
Author Organization [place] Address [address] [place] [address]. [place] [address] Care Team Providers Care Pit Recorder Name Role Phone Wilber Vidales MD Primary Care Provider [phone] Wilber Vidales MD Unavailable Matt Baez MD Unavailable [phone] Wilber Vidales MD Unavailable Wilber Vidales MD Unavailable Stephie Mahoney MD Unavailable [phone] Federica Foster RN Unavailable [phone] Unavailable [phone] Stephie Mahoney MD Unavailable [phone] Olga Garcia RN Unavailable [phone] Matt Baez MD Unavailable Junior Chavira MD Unavailable [phone] Shantel Walker MD Unavailable [phone] Junior Chavira MD Unavailable [phone] Coni Dhaliwal CNP Unavailable [phone] Anel Long NP Unavailable [phone] Angel Balbuena MD Unavailable [phone] Encounter Details Date Type Department Care Team (Late st Contact Info) Description 11/28/2019 MyC Medical Advice [facility] [address] [facility], [address] [place] [address] Roma Mcintyre, SERVICE STATION ATTENDANT Social History Tobacco Use Types Packs/Day Years [...] and Family Once a week 03/17/2019 Attends Druze Services More than 4 times per year [...] Answer Date Recorded PHQ-2 Score 0 08/27/2018 [facility] [place] of Occupat ional Health - Occupational Stress [...] CDT 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 CLOTH 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 Gender Identity Male 03/03/2019 9:24 PM CDT [...] Info) Description 12/17/2024 9:30 AM CDT Lab [facility] [address] [place] [phone] 12/23/2024 4:00 PM CDT Office Visit [address] [phone] Cyrus Aleman MD [address] [place] [address] 048445 01/27/2025 10:00 AM CDT Office Visit [facility] [address] [phone] Anel Long, BLISTER PACKING MACHINE TENDER [address] [place], [place] [address] Coni Dhaliwal, POTATO LOADER [address] [place] [address] 04/14/2025 11:15 AM CDT Office Visit [facility] [address] [facility] [address] [place] [phone] LeroyInessa wesleyDO [address] [place], [place] [address] 06/05/2025 12:30 PM CDT Office Visit [facility] End[facility]in[facility] [address] [phone] Stephie Mahoney MD [address] [address] 11/13/2025 11:00 AM CDT Virtual Visit [facility] [address] [phone] Stephie Mahoney MD [address] 358525 documented as of this encounter Visit Diagnoses Not on filedocumented in this encounter Additional Health Concerns Infection Onset Date Last Indicated Resolved Time Rule Out COVID-19 03/10/2022 03/10/2022 03/10/2022 1:37 AM CDT COVID-19 03/10/2022 03/10/2022 03/31/2022 11:3 9 PM CDT Rule Out COVID-19 10/12/2024 10/12/2024 10/12/2024 11:31 AM CLOTH SPREADER documented as of this encounter Care Teams Pit Recorder Relationship Specialty [place] [address] [address] [place] [address] PCP - General Family Practice 11/21/16 [place] [address] [place] [address] Assigned PCP 10/31/20 01/29/21 Matt Baez MD [address] [place] [address] Assigned Heart and Vascular Provider 06/11/20 06/23/22 [place] [address] [place] [address] Assigned PCP 11/02/16 10/30/20 [place] [address] [place] [address] Assigned PCP 01/30/21 07/11/24 Stephie Mahoney MD [address] [address] Endocrinology, Diabetes, and Metabolism 04/22/21 Federica Foster, RN [address] [place] [address] 752735 Veterinary Hospital Attendant Diabetes Education 04/22/[address] [place] [address] [facility] Hospital Attendant Nutrition 04/22/21 Stephie Mahoney MD [address] [place] [address] Assigned Endocrinology Provider 05/08/21 Olga Garcia, RN Specialty Certified Vehicle Fire Investigator INTERNAL MEDICINE - ENDOCRINOLOGY, DIABETES & METABOLISM 2/10/23 Matt Baez MD [address] [place] 795705 Assigned Heart and Vascular Provider 12/23/22 05/04/23 Junior Chavira MD [address] [place] [address] Cardiovascular Disease 05/29/24 [place] [address] [place] [address] Assigned PCP 07/12/24 Junior Chavira MD [address] [place], [place] 391225 Assigned Heart and Vascular Provider 08/11/24 Coni Dhaliwal CNP [address] [place] [address] Nurse Practitioner Psychiatry & Neurology Vascular Neurology 11/04/24 Anel Long NP [address] [place] [place] 7[address]35 Nurse Practitioner Psychiatry & Neurology Vascular Neurology 11/04/24 Angel Balbuena MD [address] [place], [place] 7718[address] Assigned Heart and Vascular Surgical Provider 12/10/24 documented as of this encounter
--- OUTSIDE RECORDS SUMMARY | 2024-12-11 23:52 | XMS_ITS | Encounter Summary ---
Author Organization [place] Address [address] [place] [address]. [place] [address] Care Team Providers Care Catering Truck Driver Name Role Phone Wilber Vidales MD Primary Care Provider [phone] Wilber Vidales MD Unavailable Matt Baez MD Unavailable [phone] Wilber Vidales MD Unavailable Wilber Vidales MD Unavailable Stephie Mahoney MD Unavailable [phone] Federica Foster RN Unavailable [phone] Unavailable [phone] Stephie Mahoney MD Unavailable [phone] Olga Garcia RN Unavailable [phone] Matt Baez MD Unavailable Junior Chavira MD Unavailable [phone] Shantel Walker MD Unavailable [phone] Junior hCavira MD Unavailable [phone] Coni Dhaliwal CNP Unavailable [phone] Anel Long NP Unavailable [phone] Angel Balbuena MD Unavailable [phone] Reason for Visit * Reason Onset Date Comments Medication Question 11/24/2019 Chlorthalido ne Encounter Details Date Type Department Care Team (Late st Contact Info) Description 11/24/2019 MyC Medical Advice [facility], [address] [place] [address] [place] [address] [place] [address] Medication Question (Chlorthalidone) Social History Tobacco Use [...] Answer Date Recorded PHQ-2 Score 0 08/27/2018 [facility] [place] of Occupat ional Health - Occupational [...] CDT 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 SALES RECEPTIONIST Gender Identity Male 03/03/2019 9:24 PM CDT [...] 9:30 AM CDT Lab [facility] [address] [place] [phone] 12/23/2024 4:00 PM CDT Office Visit [address] [phone] Cyrus Aleman MD [address] [place] [address] 01/27/2025 10:00 AM CDT Office Visit [facility] Neurology [address] [address] Anel Long, FARMER TREE FRUIT AND NUT CROPS [address] [place] 78[address] Coni Dhaliwal, COREY [address] [place] [address] 04/14/2025 11:15 AM CDT Office Visit [facility] Heart [facility] [address] [facility] [address] [place] [phone] Inessa Esteves, [address] [place] [address] 06/05/2025 12:30 PM CDT Office Visit [facility] [address] [phone] Stephie Mahoney MD [address] [place] [address] 567885 11/13/2025 11:00 AM CDT Virtual Visit [facility] Endocrinology [address] [phone] Stephie Mahoney MD [address] [place] [address] 761505 documented as of this encounter Visit Diagnoses Diagnosis Benign essential hypertension- Primary Essential hypertension, benign documented in this encounter Additional Health Concerns Infection Onset Date Last Indicated Resolved Time Rule Out COVID-19 03/10/2022 03/10/2022 03/10/2022 1:37 AM CDT COVID-19 03/10/2022 03/10/2022 03/31/2022 11:3 9 PM CDT Rule Out COVID-19 10/12/2024 10/12/2024 10/12/2024 11:31 AM SALES RECEPTIONIST documented as of this encounter Care Teams Catering Truck Driver Relationship Specialty [place] [address] [place] [address] PCP - General Family Practice 11/21/16 [place] [address] [place] [address] Assigned PCP 10/31/20 01/29/21 Matt Baez MD [address] [place] [address] Assigned Heart and Vascular Provider 06/11/20 06/23/22 [place] [address] [place] [address] Assigned PCP 11/02/16 10/30/20 [place] [address] [place] [address] Assigned PCP 01/30/21 07/11/24 Stephie Mahoney MD [address] [place] [address] Endocrinology, Diabetes, and Metabolism 04/22/21 Federica Foster, RN [address] [place] [address] [facility] Planner Diabetes Education 04/22/[address] [place] [address] [facility] [employer] [facility] Planner Nutrition 04/22/21 Stephie Mahoney MD [address] [place] [address] 569525 Assigned Endocrinology Provider 05/08/21 Olga Garcia, RN Specialty Manufacturing Engineering Technologist INTERNAL MEDICINE - ENDOCRINOLOGY, DIABETES & METABOLISM 09/29/22 Matt Baez MD [address] [place] 254925 Assigned Heart and Vascular Provider 12/23/22 05/04/23 Junior Chavira MD [address] [place] 218015 Cardiovascular Disease 05/29/24 [place] [address] [place], [place] 5089144 Assigned PCP 07/12/24 Junior Chavira MD [address] [place], [place] 519185 Assigned Heart and Vascular Provider 08/11/24 Coni Dhaliwal, COREY [address] [place], [place] [address] Nurse Practitioner Psychiatry & Neurology Vascular Neurology 11/04/24 Anel Long NP [address] [place] 30[address]35 Nurse Practitioner Psychiatry & Neurology Vascular Neurology 11/04/24 Angel Balbuena MD [address] [place], [place] [address] Assigned Heart and Vascular Surgical Provider 12/10/24 documented as of this encounter
--- OUTSIDE RECORDS SUMMARY | 2024-12-11 23:52 | XMS_ITS | Encounter Summary ---
Author Organization [place] Address [address] [place] [address]. [place] [address] Care Team Providers Care Laboratory Mechanic Helper Name Role Phone Wilber Vidales MD Primary Care Provider [phone] Matt Baez MD Unavailable Wilber Vidales MD Unavailable Stephie Mahoney MD Unavailable Federica Foster RN Unavailable Tova Welch RD Unavailable [phone] Stephie Mahoney MD Unavailable Olga Garcia RN Unavailable [phone] Matt Baez MD Unavailable [phone] Junior Chavira MD Unavailable [phone] Shantel Walker MD Unavailable [phone] Junior Chavira MD Unavailable [phone] Coni Dhaliwal CNP Unavailable [phone] Anel Long NP Unavailable [phone] nAgel Balbuena MD Unavailable [phone] Encounter Details Date Type Department Care Team (Late st Contact Info) Description 09/06/[address] [facility] End[facility]ology Clinic [address] [place] [address] Rebecca Harvey, RN Social History [...] How often do you attend chur or yarsani services? More than 4 times per year 06/27/2021 Do you belong to any clubs o r organizations such as holiness groups, unions, fraternal or athletic groups, or [...] Answer Date Recorded PHQ-2 Score 0 09/02/2021 [facility] [place] of Occupat ional Health - Occupational Stress [...] AM CDT 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 WEB MARKETING COORDINATOR Gender Identity Male 03/03/2019 9:24 PM CDT Sexual Orientation Straight 03/03/2019 9: 24 PM CDT COVID-19 Exposure Response Date Recorded In the last month, have you been in contact with someone who was confirmed or suspected to have Coronavirus / COVID-19? No / Unsure 09/01/2021 3:25 PM WEB MARKETING COORDINATOR documented as of this encounter Plan of Treatment Upcoming Encounters Date Type Department Care Team (Late st Contact Info) Description 12/17/2024 9:30 AM CDT Lab [facility] [address] [place] [phone] 12/23/2024 4:00 PM CDT Office Visit [facility] 6545 [facility] [address] [place] [phone] Cyrus Aleman MD [address] [place] [address] 884675 01/27/2025 10:00 AM CDT Office Visit [facility] Neurology [facility] [address] [place] [address] 200 [place] [phone] Anel Long, DESOLDERER [address] [place], [place] [address] Coni Dhaliwal, COREY 79[address] [facility] [address] [place], [place] [address] 04/14/2025 11:15 AM CDT Office Visit [facility] Heart [facility] [address] [facility] [address] [place] [phone] Inessa Esteves, 6405 [facility] [address] [place], [place] [address] 06/05/2025 12:30 PM CDT Office Visit [facility] Endocrinology [address] [phone] Stephie Mahoney MD [address] [place] [address] 108195 11/13/2025 11:00 AM CDT Virtual Visit [facility] Endocrinology [address] [place] [phone] Stephie Mahoney MD [address] [address] documented as of this encounter Visit Diagnoses Not on filedocumented in this encounter Additional Health Concerns Infection Onset Date Last Indicated Resolved Time Rule Out COVID-19 03/10/2022 03/10/2022 03/10/2022 1:37 AM CDT COVID-19 03/10/2022 03/10/2022 03/31/2022 11:3 9 PM CDT Rule Out COVID-19 10/12/2024 10/12/2024 10/12/2024 11:31 AM WEB MARKETING COORDINATOR documented as of this encounter Care Teams Laboratory Mechanic Helper Relationship Specialty [place] [address] [place] [address] PCP - General Family Practice 11/21/16 Matt Baez MD [address] [address] Assigned Heart and Vascular Provider 06/11/20 06/23/22 [place] [address] [place] [address] Assigned PCP 01/30/21 07/11/24 Stephie Mahoney MD [address] [place] [address] Endocrinology, Diabetes, and Metabolism 04/22/21 Federica Foster, RN [address] [place] [address] [phone] Gasoline Engine Assembler Diabetes Education 04/22/[address] [place] [address] 759544 Gasoline Engine Assembler Nutrition 04/22/21 Stephie Mahoney MD [address] [place] [address] 101 [place], [place] 241925 Assigned Endocrinology Provider 05/08/21 Olga Garcia, RN Specialty Steam Engineer INTERNAL MEDICINE - ENDOCRINOLOGY, DIABETES & METABOLISM 09/29/22 Matt Baez MD [address] [place] [address] Assigned Heart and Vascular Provider 12/23/22 05/04/23 Junior Chavira MD [address] [place] 17[address]85 Cardiovascular Disease 05/29/24 [place] [address] [place] [address] Assigned PCP 07/12/24 Junior Chavira MD [address] [place], [place] [address] Assigned Heart and Vascular Provider 08/11/24 Coni Dhaliwal, EMPLOYMENT INTERVIEWER [address] [place], [place] 0[address] Nurse Practitioner Psychiatry & Neurology Vascular Neurology 11/04/24 Anel Long, TARIK [address] [place] 88[address] Nurse Practitioner Psychiatry & Neurology Vascular Neurology 11/04/24 Angel Balbuena MD 909 [place], [place] 528825 Assigned Heart and Vascular Surgical Provider 12/10/24 documented as of this encounter
--- OUTSIDE RECORDS SUMMARY | 2024-12-11 23:52 | XMS_ITS | Encounter Summary ---
Author Organization [place] Address [address] [place] [address]. [place] [address] Care Team Providers Care Flavor Extractor Name Role Phone Wilber Vidales MD Primary Care Provider [phone] Wilber Vidales MD Unavailable Matt Baez MD Unavailable [phone] Wilber Vidales MD Unavailable Wilber Vidales MD Unavailable Stephie Mahoney MD Unavailable [phone] Federica Foster RN Unavailable [phone] Unavailable [phone] Stephie Mahoney MD Unavailable [phone] Olga Garcia RN Unavailable [phone] Matt Baez MD Unavailable Junior Chavira MD Unavailable [phone] Shantel Walker MD Unavailable [phone] Junior Chavira MD Unavailable [phone] Coni Dhaliwal CNP Unavailable [phone] Anel Long NP Unavailable [phone] Angel Balbuena MD Unavailable [phone] Encounter Details Date Type Department Care Team (Late st Contact Info) Description 07/01/2019 MyC Medical Advice [facility] [address] [place] [address] Tiarra Poole, RN Social History Tobacco Use [...] and Family Once a week 03/17/2019 Attends Protestant Services More than 4 times per year [...] Answer Date Recorded PHQ-2 Score 0 08/27/2018 [facility] [place] of Occupat ional Health - Occupational Stress [...] AM CDT 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 Gender Identity Male 03/03/2019 9:24 PM CDT Sexual Orientation Straight 03/03/2019 9: 24 PM CDT documented as of this encounter Plan of Treatment Upcoming Encounters Date Type Department Care Team (Late st Contact Info) Description 12/17/2024 9:30 AM CDT Lab [facility] [address] [place] [address] 12/23/2024 4:00 PM CDT Office Visit [facility] [address] [place] [phone] Cyrus Aleman MD [address] [place] [address] 784005 01/27/2025 10:00 AM CDT Office Visit [facility] Neurology [facility] [address] [place] [address] 200 [place] [phone] Anel Long NP 5251 [place], [place] 93[address] Coni Dhaliwal CNP [address] [address] 04/14/2025 11:15 AM CDT Office Visit [facility] Heart [facility] [address] [facility] [address] [place] [address] Inessa Esteves DO [address] [place] [address] 06/05/2025 12:30 PM CDT Office Visit [facility] Endocrinology [facility] [address] [place] [phone] Stephie Mahoney MD [address] [place] [address] 11/13/2025 11:00 AM CDT Virtual Visit [facility] Endocrinology [address] [phone] Stephie Mahoney MD [address] [place] [address] 334125 documented as of this encounter Visit Diagnoses Not on filedocumented in this encounter Additional Health Concerns Infection Onset Date Last Indicated Resolved Time Rule Out COVID-19 03/10/2022 03/10/2022 03/10/2022 1:37 AM CDT COVID-19 03/10/2022 03/10/2022 03/31/2022 11:3 9 PM CDT Rule Out COVID-19 10/12/2024 10/12/2024 10/12/2024 11:31 AM BARREL POLISHER INSIDE documented as of this encounter Care Teams Flavor Extractor Relationship Specialty [place] [address] [place] [address] PCP - General Family Practice 11/21/16 [place] [address] [place] [address] Assigned PCP 10/31/20 01/29/21 Matt Baez MD [address] [place] [address] Assigned Heart and Vascular Provider 06/11/20 06/23/22 [place] [address] [place] [address] Assigned PCP 11/02/16 10/30/20 [place] [address] [place] [address] Assigned PCP 01/30/21 07/11/24 Stephie Mahoney MD [address] [place] [address] 497985 Endocrinology, Diabetes, and Metabolism 04/22/21 Federica Foster RN [address] [place] [address] 771215 Route Clerk Diabetes Education 04/22/[address] [place] [address] Route Clerk Nutrition 04/22/21 Stephie Mahoney MD [address] [place] [address] Assigned Endocrinology Provider 05/08/21 Olga Garcia, RN Specialty Quencher Operator INTERNAL MEDICINE - ENDOCRINOLOGY, DIABETES & METABOLISM 09/29/22 Matt Baez MD [address] [place] [address] Assigned Heart and Vascular Provider 12/23/22 05/04/23 Junior Chavira MD [address] [place], [place] [address] Cardiovascular Disease 05/29/24 [place] [address] [place], [place] 44[address] Assigned PCP 07/12/24 Junior Chavira MD [address] [place], [place] 7[address]375 Assigned Heart and Vascular Provider 08/11/24 Coni Dhaliwal CNP [address] [place] 246775 Nurse Practitioner Psychiatry & Neurology Vascular Neurology 11/04/24 Anel Long NP [address] [place] 37[address]35 Nurse Practitioner Psychiatry & Neurology Vascular Neurology 11/04/24 Angel Balbuena MD [address] [place] [address] 983085 Assigned Heart and Vascular Surgical Provider 12/10/24 documented as of this encounter
--- OUTSIDE RECORDS SUMMARY | 2024-12-11 23:52 | XMS_ITS | Encounter Summary ---
Author Organization [facility] Address [address] [place] [address]. [place] [address] Care Team Providers Care Inspector Brake Lining Name Role Phone Wilber Vidales MD Primary Care Provider [phone] Wilber Vidales MD Unavailable Matt Baez MD Unavailable [phone] Wilber Vidales MD Unavailable Wilber Vidales MD Unavailable Stephie Mahoney MD Unavailable [phone] Federica Foster RN Unavailable [phone] Unavailable [phone] Stephie Mahoney MD Unavailable [phone] Olga Garcia RN Unavailable [phone] Matt Baez MD Unavailable Junior Chavira MD Unavailable [phone] Shantel Walker MD Unavailable [phone] Junior Chavira MD Unavailable [phone] Coni Dhaliwal CNP Unavailable [phone] Anel Long NP Unavailable [phone] Angel Balbuena MD Unavailable [phone] Reason for Visit * Reason Onset Date Comments MyChart Communication 07/01/2019 echo Encounter Details Date Type Department Care Team (Late st Contact Info) Description 07/01/2019 MyC Medical Advice [facility], [address] [place] [address] [place] [address] [place] [address] MyChart Communication (echo) Social History Tobacco Use [...] Answer Date Recorded PHQ-2 Score 0 08/27/2018 [facility] [place] of Occupat ional Health - Occupational Stress [...] AM CDT 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 Mili Avitia RN BS GE GOODS MARKER documented in this encounter Plan of Treatment Upcoming Encounters Date Type Department Care Team (Late st Contact Info) Description 12/17/2024 9:[address] [facility] [address] [place] [address] 12/23/2024 4:00 PM CDT Office Visit [address] [phone] Cyrus Aleman MD [address] [place] [address] 01/27/2025 10:00 AM CDT Office Visit [facility] Neurology Clinic [address] [place] [address] Anel Long NP [address] [place] [address] Coni Dhaliwal, COREY [address] [place] [address] 04/14/2025 11:15 AM CDT Office Visit [facility] Heart [facility] [address] [facility] [address] [place] [phone] Inessa Esteves DO [address] [place] [address] 06/05/2025 12:30 PM CDT Office Visit [facility] Endocrinology Clinic [address] [phone] Stephie Mahoney MD [address] [place] [address] 144665 11/13/2025 11:00 AM CDT Virtual Visit [facility] Endocrinology [address] [phone] Stephie Mahoney MD [address] [place] [address] 618465 documented as of this encounter Visit Diagnoses Not on filedocumented in this encounter Additional Health Concerns Infection Onset Date Last Indicated Resolved Time Rule Out COVID-19 03/10/2022 03/10/2022 03/10/2022 1:37 AM CDT COVID-19 03/10/2022 03/10/2022 03/31/2022 11:3 9 PM CDT Rule Out COVID-19 10/12/2024 10/12/2024 10/12/2024 11:31 AM GREIGE GOODS MARKER documented as of this encounter Care Teams Inspector Brake Lining Relationship Specialty [place] [address] [address] [address] PCP - General Family Practice 11/21/16 [place] [address] [address] [address] Assigned PCP 10/31/20 01/29/21 Matt Baez MD [address] [facility] [address] [place] [address]86[address] Assigned Heart and Vascular Provider 06/11/20 06/23/22 [place] [address] [address] [address] Assigned PCP 11/02/16 10/30/20 [place] [address] [address] [address] Assigned PCP 01/30/21 07/11/24 Stephie Mahoney MD [address] [address] Endocrinology, Diabetes, and Metabolism 04/22/21 Federica Foster, RN 420 [place], [place] 3[address]85 Precision Lens Grinder Diabetes Education 04/22/[address] [place] [address] 809284 Precision Lens Grinder Nutrition 04/22/21 Stephie Mahoney MD 420 [facility] 101 [place], [place] 478[address] Assigned Endocrinology Provider 05/08/21 Olga Garcia, RN Specialty Office Coordinator Receptionist INTERNAL MEDICINE - ENDOCRINOLOGY, DIABETES & METABOLISM 09/29/22 Matt Baez MD [address] [place] 4067[address] Assigned Heart and Vascular Provider 12/23/22 05/04/23 Junior Chavira MD [address] [place] [id number] Cardiovascular Disease 05/29/24 [place] [address] [place] [address] Assigned PCP 07/12/24 Junior Chavira MD [address] [place] 508565 Assigned Heart and Vascular Provider 08/11/24 Coni Dhaliwal, DAY GUARD [address] [place] [address] Nurse Practitioner Psychiatry & Neurology Vascular Neurology 11/04/24 Anel Long NP [address] [place], [place] [address] Nurse Practitioner Psychiatry & Neurology Vascular Neurology 11/04/24 Angel Balbuena MD [address] [place] [address] Assigned Heart and Vascular Surgical Provider 12/10/24 documented as of this encounter
--- OUTSIDE RECORDS SUMMARY | 2024-12-11 23:52 | XMS_ITS | Encounter Summary ---
Author Organization [facility] Address [address] [place] [address]. [place] [address] Care Team Providers Care Welt Rander Name Role Phone Wilber Vidales MD Primary Care Provider [phone] Matt Baez MD Unavailable [phone] Wilber Vidales MD Unavailable Stephie Mahoney MD Unavailable Federica Foster RN Unavailable Tova Welch RD Unavailable [phone] Stephie Mahoney MD Unavailable Olga Garcia RN Unavailable [phone] Matt Baez MD Unavailable [phone] Junior Chavira MD Unavailable [phone] Shantel Walker MD Unavailable [phone] Junior Chavira MD Unavailable [phone] Coni Dhaliwal CNP Unavailable [phone] Anel Long NP Unavailable [phone] Angel Balbuena MD Unavailable [phone] Reason for Visit * Reason Onset Date Comments Refill Request 12/26/2021 modafinil (PROVI GERALDINE) 200 MG tablet Encounter Details Date Type Department Care Team (Late st Contact Info) Description 12/26/2021 Refill [facility] [address] [place] [phone] [place] [address] [place] [address] Refill Request (modafinil (PROVIGIL) 200 [...] often do you attend chur ch or alevism services? More than 4 times [...] Answer Date Recorded PHQ-2 Score 0 09/02/2021 [facility] [place] of Occupat ional Health - Occupational Stress [...] place to sleep or slept in a longterm (including now)? No 06/27/2021 Education Answer Date Recorded What is the highest level of school you have completed or the highest degree you have received? 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 Gender Identity Male 03/03/2019 9:24 PM [...] Info) Description 12/17/2024 9:30 AM CDT Lab [facility] [address] [place] [phone] 12/23/2024 4:00 PM CDT Office Visit [facility] 6545 [facility] 450 [place] [phone] Cyrus Aleman MD [address] [place] [address] 460525 01/27/2025 10:00 AM CDT Office Visit [facility] Neurology [facility] [address] [place] [address] 200 [place] [phone] Anel Long, PODIATRIC AIDE [address] [place] [address] Coni Dhaliwal, COREY [address] [facility] 450 [place] [address] 04/14/2025 11:15 AM CDT Office Visit [facility] Heart [facility] [address] [facility] [address] [place] [phone] Inessa Esteves DO [address] [place], [place] [address] 06/05/2025 12:30 PM CDT Office Visit [facility] Endocrinology Clinic [address] [place] [phone] Stephie Mahoney MD [address] [place] [address] 7[address]755 11/13/2025 11:00 AM CDT Virtual Visit [facility] Endocrinology Clinic [address] [place] [phone] Stephie Mahoney MD [address] [place] [address]5555 documented as of this encounter Visit Diagnoses Diagnosis 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, 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 documented in this encounter Additional Health Concerns Infection Onset Date Last Indicated Resolved Time Rule Out COVID-19 03/10/2022 03/10/2022 03/10/2022 1:37 AM CDT COVID-19 03/10/2022 03/10/2022 03/31/2022 11:3 9 PM CDT Rule Out COVID-19 10/12/2024 10/12/2024 10/12/2024 11:31 AM SENIOR SYSTEMS SOFTWARE ENGINEER documented as of this encounter Care Teams Welt Rander Relationship Specialty [place] [address] [address] [address] PCP - General Family Practice 11/21/16 Matt Baez MD [address] [place] [address] [place] [address] Assigned Heart and Vascular Provider 06/11/20 06/23/22 [place] [address] [address] [address] Assigned PCP 01/30/21 07/11/24 Stephie Mahoney MD [address] [address] Endocrinology, Diabetes, and Metabolism 04/22/21 Federica Foster, RN 420 [place] [address] Petroleum Laboratory Technician Diabetes Education 04/22/[address] [place] [address] Petroleum Laboratory Technician Nutrition 04/22/21 Stephie Mahoney MD [address] [address] Assigned Endocrinology Provider 05/08/21 Olga Garcia RN Specialty Licensed Social Worker INTERNAL MEDICINE - ENDOCRINOLOGY, DIABETES & METABOLISM 09/29/22 Matt Baez MD [address] [place] [address] [place] [address] Assigned Heart and Vascular Provider 12/23/22 05/04/23 Junior Chavira MD [address] [place] [address] Cardiovascular Disease 05/29/24 [place] [address] [place] [address] Assigned PCP 07/12/24 Junior Chavira MD [address] [place] 38[address]65 Assigned Heart and Vascular Provider 08/11/24 Coni Dhaliwal CNP [address] [place] [address] [place] [address] Nurse Practitioner Psychiatry & Neurology Vascular Neurology 11/04/24 Anel Long NP [address] [place] [address] Nurse Practitioner Psychiatry & Neurology Vascular Neurology 11/04/24 Angel Balbuena MD [address] [place] [address] [id number] Assigned Heart and Vascular Surgical Provider 12/10/24 documented as of this encounter
--- OUTSIDE RECORDS SUMMARY | 2024-12-11 23:53 | XMS_ITS | Encounter Summary ---
Author Organization [facility] Address [address] [place] [address]. [place] [address] Care Team Providers Care Ballet Dancer Name Role Phone Wilber Vidales MD Primary Care Provider [phone] Matt Baez MD Unavailable [phone] Wilber Vidales MD Unavailable Stephie Mahoney MD Unavailable Federica Foster RN Unavailable [phone] Unavailable [phone] Stephie Mahoney MD Unavailable [phone] Olga Garcia RN Unavailable [phone] Matt Baez MD Unavailable [phone] Junior Chavira MD Unavailable [phone] Shantel Walker MD Unavailable [phone] Junior Chavira MD Unavailable [phone] Coni Dhaliwal CNP Unavailable [phone] Anel Long NP Unavailable [phone] Reason for Visit * Reason Onset Date Comments Appointment 07/08/[address] Mahoney Encounter Details Date Type Department Care Team (Late st Contact Info) Description 07/08/2021 Telephone [facility] Endocrinology Clinic [place] [address] [facility] [address] 3rd [place] [address] Stephie Mahoney MD 420 [facility] 101 [place] [address] Appointment (Labs per Dr Mahoney) Social History [...] week 07/12/2023 How often do you attend [facility] or judaism services? 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 ER FABRICATOR * Telephone Encounter - Caitlin Malik - 07/08/2021 1:13 PM CST ----- Message from Stephie Mahoney MD sent at 06/30/2021 2:49 PM PEWTER FABRICATOR ----- Please have pt do labs before return visit at [facility] - please let pt know about details - I have ordered ER FABRICATOR documented in this encounter Plan of Treatment Upcoming Encounters Date Type Department Care Team (Late st Contact Info) Description 12/17/2024 9:30 AM CDT Lab [facility] [address] [place] [address] 12/23/2024 4:00 PM CDT Office Visit [address] [phone] Cyrus Aleman MD [address] [place] [address] 01/27/2025 10:00 AM CDT Office Visit [facility] Neurology Clinic [address] [place] [phone] Anel Long AIR EXPORT OPERATIONS AGENT [address] [place] [address] Coni Dhaliwal, PROSTHETIC AIDES TEACHER [address] [place] [address] 04/14/2025 11:15 AM CDT Office Visit [facility] Heart [facility] [address] [facility] [address] [place] [address] Inessa Esteves DO [address] [place] [address] 06/05/2025 12:30 PM CDT Office Visit [facility] Endocrinology Clinic [address] [phone] Stephie Mahoney MD [address] [place] [address]605 11/13/2025 11:00 AM CDT Virtual Visit [facility] Endocrinology [address] [phone] Stephie Mahoney MD [address] [place] [address] 037395 documented as of this encounter Visit Diagnoses Not on filedocumented in this encounter Additional Health Concerns Infection Onset Date Last Indicated Resolved Time Rule Out COVID-19 03/10/2022 03/10/2022 03/10/2022 1:37 AM CDT COVID-19 03/10/2022 03/10/2022 03/31/2022 11:3 9 PM CDT Rule Out COVID-19 10/12/2024 10/12/2024 10/12/2024 11:31 AM PEWTER FABRICATOR documented as of this encounter Care Teams Ballet Dancer Relationship Specialty [place] [address] [place] [address] PCP - General Family Practice 11/21/16 Matt Baez MD [address] [facility] [address] [place] [address] Assigned Heart and Vascular Provider 06/11/20 06/23/22 [place] [address] [place] [address] Assigned PCP 01/30/21 07/11/24 Stephie Mahoney MD [address] [place] [address] Endocrinology, Diabetes, and Metabolism 04/22/21 Federica Foster, RN [address] [place] [address] 380745 Logistics Director Diabetes Education 04/22/[address] [place] [address] Logistics Director Nutrition 04/22/21 Stephie Mahoney MD [address] [place] [address] Assigned Endocrinology Provider 05/08/21 Olga Garcia, RN Specialty Administration Professional INTERNAL MEDICINE - ENDOCRINOLOGY, DIABETES & METABOLISM 09/29/22 Matt Baez MD [address] [place] [address] Assigned Heart and Vascular Provider 12/23/22 05/04/23 Junior Chavira MD [address] [place] [address] Cardiovascular Disease 05/29/24 [place] [address] [place] [address] Assigned PCP 07/12/24 Junior Chavira MD [address] [place] [address] Assigned Heart and Vascular Provider 08/11/24 Coni Dhaliwal CNP [address] [place], [place] [address] Nurse Practitioner Psychiatry & Neurology Vascular Neurology 11/04/24 Anel Long NP [address] [place] [address] Nurse Practitioner Psychiatry & Neurology Vascular Neurology 11/04/24 documented as of this encounter
--- OUTSIDE RECORDS SUMMARY | 2024-12-11 23:53 | XMS_ITS | Encounter Summary ---
Author Organization [facility] Address [address] [place] [address]. [place] [address] Care Team Providers Care Underground Production Foreperson Name Role Phone Wilber Vidales MD Primary Care Provider [phone] Matt Baez MD Unavailable Wilber Vidales MD Unavailable Stephie Mahoney MD Unavailable Federica Foster RN Unavailable Tova Welch RD Unavailable [phone] Stephie Mahoney MD Unavailable Olga Garcia RN Unavailable [phone] Matt Baez MD Unavailable [phone] Junior Chavira MD Unavailable [phone] Shantel Walker MD Unavailable [phone] Junior Chavira MD Unavailable [phone] Coni Dhaliwal CNP Unavailable [phone] Anel Long NP Unavailable [phone] Angel Balbuena MD Unavailable Encounter Details Date Type Department Care Team (Late st Contact Info) Description 08/06/2021 MyC Medical Advice [facility] Diabetes Education [address] 3rd [place] [address] Federica Foster, RN 420 [place] [address] Social History Tobacco Use Types Packs/Day Years [...] How often do you attend [facility] or restoration services? 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 Gender Identity Male 03/03/2019 9:24 PM CDT Sexual Orientation Straight 03/03/2019 9: 24 PM CDT documented as of this encounter Plan of Treatment Upcoming Encounters Date Type Department Care Team (Late st Contact Info) Description 12/17/2024 9:30 AM CDT [facility] [address] [place] [address] 12/23/2024 4:00 PM CDT Office Visit [facility] 6545 [facility] 450 [place] [phone] Cyrus Aleman MD [address] [place] [address] 01/27/2025 10:00 AM CDT Office Visit [facility] Neurology [facility] [address] [place] [address] 200 [place] [phone] Anel Long, PRESSURE WELDER [address] [facility] [facility] [place], [place] [address] Coni Dhaliwal, PRECISION LATHE OPERATOR 9845 [facility] 450 [place], [place] [address] 04/14/2025 11:15 AM CDT Office Visit [facility] Heart [facility] [address] [facility] [address] [place] [phone] Inessa Esteves DO 6405 [facility] [address] [place], [place] [address] 06/05/2025 12:30 PM CDT Office Visit [facility] Endocrinology Clinic [address] [phone] Stephie Mahoney MD [address] [place] [address]46155 11/13/2025 11:00 AM CDT Virtual Visit [facility] Endocrinology Clinic [address] [phone] Stephie Mahoney MD [address] 527785 documented as of this encounter Visit Diagnoses Not on filedocumented in this encounter Additional Health Concerns Infection Onset Date Last Indicated Resolved Time Rule Out COVID-19 03/10/2022 03/10/2022 03/10/2022 1:37 AM CDT COVID-19 03/10/2022 03/10/2022 03/31/2022 11:3 9 PM CDT Rule Out COVID-19 10/12/2024 10/12/2024 10/12/2024 11:31 AM FLEET SERVICE MANAGER documented as of this encounter Care Teams Underground Production Foreperson Relationship Specialty [place] [address] [address] [address] PCP - General Family Practice 11/21/16 Matt Baez MD [address] [facility] [address] [place] [address] Assigned Heart and Vascular Provider 06/11/20 06/23/22 [place] [address] [address] [address] Assigned PCP 01/30/21 07/11/24 Stephie Mahoney MD [address] [address] Endocrinology, Diabetes, and Metabolism 04/22/21 Federica Foster, RN 420 [place], [place] 23[address]85 Senior Operations Analyst Diabetes Education 04/22/21 Tova Welch, OSCAR [address] [place] [address] Senior Operations Analyst Nutrition 04/22/21 Stephie Mahoney MD [address] [place] [address] [facility] 101 [place], [place] [address] Assigned Endocrinology Provider 05/08/21 Olga Garcia, RN Specialty Massage Coordinator INTERNAL MEDICINE - ENDOCRINOLOGY, DIABETES & METABOLISM 09/29/22 Matt Baez MD [address] [place], [place] [address] Assigned Heart and Vascular Provider 12/23/22 05/04/23 Junior Chavira MD [address] [place], [place] [address] Cardiovascular Disease 05/29/24 [place] [address] [place] [address] Assigned PCP 07/12/24 Junior Chavira MD [address] [place], [place] 85[address] Assigned Heart and Vascular Provider 08/11/24 Coni Dhaliwal CNP [address] [place], [place] [address] Nurse Practitioner Psychiatry & Neurology Vascular Neurology 11/04/24 Anel Long NP [address] [place] 66[address] Nurse Practitioner Psychiatry & Neurology Vascular Neurology 11/04/24 Angel Balbuena MD [address] [place] [address] Assigned Heart and Vascular Surgical Provider 12/10/24 documented as of this encounter
--- OUTSIDE RECORDS SUMMARY | 2024-12-11 23:53 | XMS_ITS | Encounter Summary ---
Author Organization [place] Address [address] [place] [address]. [place] [address] Care Team Providers Care Cement Cutter Name Role Phone Wilber Vidales MD Primary Care Provider [phone] Matt Baez MD Unavailable Wilber Vidales MD Unavailable Stephie Mahoney MD Unavailable Federica Foster RN Unavailable Tova Welch RD Unavailable [phone] Stephie Mahonye MD Unavailable Olga Garcia RN Unavailable [phone] Matt Baez MD Unavailable [phone] Junior Chavira MD Unavailable [phone] Shantel Walker MD Unavailable [phone] Junior Chavira MD Unavailable [phone] Coni Dhaliwal CNP Unavailable [phone] Anel Long NP Unavailable [phone] Angel Balbuena MD Unavailable [phone] Encounter Details Date Type Department Care Team (Late st Contact Info) Description 05/02/2021 MyC Medical Advice [facility] Endocrinology Clinic [place] [address] [facility] [address] 3rd [place] [address] Stephie Mahoney MD 420 [facility] SE [facility] 101 [place] [address] Social History Tobacco Use Types Packs/Day Years [...] and Family Once a week 03/17/2019 Attends [employer] Services More than 4 times per year [...] Answer Date Recorded PHQ-2 Score 0 03/21/2021 [facility] [place] of Occupat ional Health - Occupational Stress [...] CDT 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 Gender Identity Male 03/03/2019 9:24 PM CDT [...] Lab [facility] [address] [place] [address] 12/23/2024 4:00 PM CDT Office Visit [address] [phone] Cyrus Aleman MD [address] [place] [address] 025815 01/27/2025 10:00 AM CDT Office Visit [facility] Neurology [facility] [address] [place] [phone] Anel Long, KNOT TIER [address] [place], [place] [address] Coni Dhaliwal, CHIP APPLYING MACHINE TENDER [address] [place] [address] 04/14/2025 11:15 AM CDT Office Visit [facility] Heart [facility] [address] [facility] [address] [place] [phone] YungjeromyEliazarInessa DO Shantel [address] [place] [address] 06/05/2025 12:30 PM CDT Office Visit [facility] Endocrinology [address] [phone] Stephie Mahoney MD [address] [place] [address] 013675 11/13/2025 11:00 AM CDT Virtual Visit [facility] Endocrinology [address] [phone] Stephie Mahoney MD [address] [place] [address] 845915 documented as of this encounter Visit Diagnoses Not on filedocumented in this encounter Additional Health Concerns Infection Onset Date Last Indicated Resolved Time Rule Out COVID-19 03/10/2022 03/10/2022 03/10/2022 1:37 AM CDT COVID-19 03/10/2022 03/10/2022 03/31/2022 11:3 9 PM CDT Rule Out COVID-19 10/12/2024 10/12/2024 10/12/2024 11:31 AM SUPERVISOR COREMAKER documented as of this encounter Care Teams Cement Cutter Relationship Specialty [place] [address] [place] [address] PCP - General Family Practice 11/21/16 Matt Baez MD [address] [place] [address] Assigned Heart and Vascular Provider 06/11/20 06/23/22 [place] [address] [place] [address] Assigned PCP 01/30/21 07/11/24 Stephie Mahoney MD [address] 296915 Endocrinology, Diabetes, and Metabolism 04/22/21 Federica Foster RN 420 [place] [address] Audio Video Tech Diabetes Education 04/22/[address] [place] [address] Audio Video Tech Nutrition 04/22/21 Stephie Mahoney MD [address] [place] [address] Assigned Endocrinology Provider 05/08/21 Olga Garcia, RN Specialty Avid Editor INTERNAL MEDICINE - ENDOCRINOLOGY, DIABETES & METABOLISM 09/29/22 Matt Baez MD [address] [place] [id number] Assigned Heart and Vascular Provider 12/23/22 05/04/23 Junior Chavira MD [address] [place] 684035 Cardiovascular Disease 05/29/24 [place] [address] [place] [address] Assigned PCP 07/12/24 Junior Chavira MD [address] [place] [address] Assigned Heart and Vascular Provider 08/11/24 Coni Dhaliwal, COREY [address] [place] 268135 Nurse Practitioner Psychiatry & Neurology Vascular Neurology 11/04/24 Anel Long NP [address] [place] [place] 554385 Nurse Practitioner Psychiatry & Neurology Vascular Neurology 11/04/24 Angel Balbuena MD [address] [place], [place] 8[address] Assigned Heart and Vascular Surgical Provider 12/10/24 documented as of this encounter
--- OUTSIDE RECORDS SUMMARY | 2024-12-11 23:53 | XMS_ITS | Encounter Summary ---
Author Organization [place] Address [address] [place] [address]. [place] [address] Care Team Providers Care Larry Car Operator Name Role Phone Wilber Vidales MD Primary Care Provider [phone] Wilber Vidales MD Unavailable Matt Baez MD Unavailable [phone] Wilber Vidales MD Unavailable Wilber Vidales MD Unavailable Stephie Mahoney MD Unavailable [phone] Federica Foster RN Unavailable [phone] Unavailable [phone] Stephie Mahoney MD Unavailable [phone] Olga Garcia RN Unavailable [phone] Matt Baez MD Unavailable Junior Chavira MD Unavailable [phone] Shantel Walker MD Unavailable [phone] Junior Chavira MD Unavailable [phone] Coni Dhaliwal CNP Unavailable [phone] Anel Long NP Unavailable [phone] Angel Balbuena MD Unavailable [phone] Encounter Details Date Type Department Care Team (Late st Contact Info) Description 10/29/2019 MyC Medical Advice [facility], [address] [place] [address] [place] [address] [place] [address] Social History Tobacco Use Types [...] Answer Date Recorded PHQ-2 Score 0 08/27/2018 [facility] [place] of Occupat ional Health - Occupational Stress [...] AM CDT 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 Gender Identity Male 03/03/2019 9:24 PM [...] 9:30 AM CDT Lab [facility] [address] [place] [phone] 12/23/2024 4:00 PM CDT Office Visit [address] [address] Cyrus Aleman MD [address] [place] [address] 607395 01/27/2025 10:00 AM CDT Office Visit [facility] Neurology [address] [place] [address] Anel Long NP [address] [place] [address] Coni Dhaliwal, COMMERCIAL LIGHT FIXTURE ASSEMBLER [address] [place] 903[address] 04/14/2025 11:15 AM CDT Office Visit [facility] Heart [facility] [address] [facility] [address] [place] [phone] Inessa Esteves DO [address] [place] 713625 06/05/2025 12:30 PM CDT Office Visit [facility] Endocrinology Clinic [address] [phone] Stephie Mahoney MD [address] [place] [address] 085135 11/13/2025 11:00 AM CDT Virtual Visit [facility] Endocrinology [address] [phone] Stephie Mahoney MD [address] [place] [address] 671375 documented as of this encounter Visit Diagnoses Not on filedocumented in this encounter Additional Health Concerns Infection Onset Date Last Indicated Resolved Time Rule Out COVID-19 03/10/2022 03/10/2022 03/10/2022 1:37 AM CDT COVID-19 03/10/2022 03/10/2022 03/31/2022 11:3 9 PM CDT Rule Out COVID-19 10/12/2024 10/12/2024 10/12/2024 11:31 AM STORE WORKER documented as of this encounter Care Teams Larry Car Operator Relationship Specialty [place] [address] [address] [address] PCP - General Family Practice 11/21/16 [place] [address] [address] [address] Assigned PCP 10/31/20 01/29/21 Matt Baez MD [address] [place] 682905 Assigned Heart and Vascular Provider 06/11/20 06/23/22 [place] [address] [address] [address] Assigned PCP 11/02/16 10/30/20 [place] [address] [address] [address] Assigned PCP 01/30/21 07/11/24 Stephie Mahoney MD [address] [place] [address] Endocrinology, Diabetes, and Metabolism 04/22/21 Federica Foster, RN [address] [place] [address] 326585 Customer Servicer Diabetes Education 04/22/21 Tova Welch, RD [address] [place] [address] Customer Servicer Nutrition 04/22/21 Stephie Mahoney MD [address] [place] [address] [address] [place] [address] Assigned Endocrinology Provider 05/08/21 Olga Garcia, RN Specialty Art Handler INTERNAL MEDICINE - ENDOCRINOLOGY, DIABETES & METABOLISM 09/29/22 Matt Baez MD [address] [place] 643345 Assigned Heart and Vascular Provider 12/23/22 05/04/23 Junior Chavira MD [address] [place] 586035 Cardiovascular Disease 05/29/24 [place] [address] [place] [address] Assigned PCP 07/12/24 Junior Chavira MD [address] [place] 662845 Assigned Heart and Vascular Provider 08/11/24 Coni Dhaliwal, COREY [address] [place] 65[address]45 Nurse Practitioner Psychiatry & Neurology Vascular Neurology 11/04/24 Anel Long NP [address] [place] 621785 Nurse Practitioner Psychiatry & Neurology Vascular Neurology 11/04/24 Angel Balbuena MD [address]09 [place], [place] 944965 Assigned Heart and Vascular Surgical Provider 12/10/24 documented as of this encounter
--- OUTSIDE RECORDS SUMMARY | 2024-12-11 23:53 | XMS_ITS | Encounter Summary ---
Author Organization [place] Address [address] [place] [address]. [place] [address] Care Team Providers Care Tour Coordinator Name Role Phone Wilber Vidales MD Primary Care Provider [phone] Matt Baez MD Unavailable Wilber Vidales MD Unavailable Stephie Mahoney MD Unavailable Federica Foster RN Unavailable Tova Welch RD Unavailable [phone] Stephie Mahoney MD Unavailable Olga Garcia RN Unavailable [phone] Matt Baez MD Unavailable [phone] Junior Chavira MD Unavailable [phone] Shantel Walker MD Unavailable [phone] Junior Chavira MD Unavailable [phone] Coni Dhaliwal CNP Unavailable [phone] Anel Long NP Unavailable [phone] Angel Balbuena MD Unavailable [phone] Encounter Details Date Type Department Care Team (Late st Contact Info) Description 07/27/2021 MyC Medical Advice [facility] Diabetes Education [address] 3rd [place] [address] Federica Foster, RN 420 [place] [address] Social History Tobacco Use Types Packs/Day Years [...] 06/27/2021 How often do you attend [facility] or scientology services? More than 4 times [...] Answer Date Recorded PHQ-2 Score 0 06/27/2021 [facility] [place] of Occupat ional Health - Occupational Stress [...] place to sleep or slept in a prison (including now)? No 06/27/2021 Education Answer Date Recorded What is the highest level of school you have completed or the highest degree you have received? 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 No / Unsure 06/27/2021 6:41 AM PAINTER HELPER SPRAY documented as of this encounter Plan of Treatment Upcoming Encounters Date Type Department Care Team (Late st Contact Info) Description 12/17/2024 9:[address] [facility] [address] [place] [phone] 12/23/2024 4:00 PM CDT Office Visit [facility] 6545 [facility] 450 [place] [phone] Cyrus Aleman MD [address] [place] [address] 695705 01/27/2025 10:00 AM CDT Office Visit [facility] Neurology [facility] [address] [place] [address] 200 [place] [phone] Anel Long REFUSE DRIVER [address] [place], [place] [address] Coni Dhaliwal, METAL FABRICATING SHOP HELPER [address] [facility] 450 [place], [place] [address] 04/14/2025 11:15 AM CDT Office Visit [facility] Heart [facility] [address] [facility] [address] [place] [phone] Inessa Esteves, [address] [place], [place] [address] 06/05/2025 12:30 PM CDT Office Visit [facility] Endocrinology [address]rd [place] [address] Stephie Mahnoey MD [address] [place] [address] 101 [place], [place] [address]925 11/13/2025 11:00 AM CDT Virtual Visit [facility] Endocrinology [address]rd [place] [phone] Stephie Mahoney MD [address] 470865 documented as of this encounter Visit Diagnoses Not on filedocumented in this encounter Additional Health Concerns Infection Onset Date Last Indicated Resolved Time Rule Out COVID-19 03/10/2022 03/10/2022 03/10/2022 1:37 AM CDT COVID-19 03/10/2022 03/10/2022 03/31/2022 11:3 9 PM CDT Rule Out COVID-19 10/12/2024 10/12/2024 10/12/2024 11:31 AM PAINTER HELPER SPRAY documented as of this encounter Care Teams Tour Coordinator Relationship Specialty [place] [address] [place] [address] PCP - General Family Practice 11/21/16 Matt Baez MD [address] [facility] [address] [place] [address] Assigned Heart and Vascular Provider 06/11/20 06/23/22 [place] [address] [place] [address] Assigned PCP 01/30/21 07/11/24 Stephie Mahoney MD [address] [address] Endocrinology, Diabetes, and Metabolism 04/22/21 Federica Foster, RN 420 [place] [address] Mixing Engineer Diabetes Education 04/22/[address] [place] [address] Mixing Engineer Nutrition 04/22/21 Stephie Mahoney MD [address] [place] [address] 101 [place] [address] Assigned Endocrinology Provider 05/08/21 Olga Garcia RN Specialty Scoop Operator INTERNAL MEDICINE - ENDOCRINOLOGY, DIABETES & METABOLISM 09/29/22 Matt Baez MD [address] [place], [place] 6[address] Assigned Heart and Vascular Provider 12/23/22 05/04/23 Junior Chavira MD [address] [place] 7[address]395 Cardiovascular Disease 05/29/24 [place] [address] [place] [address] Assigned PCP 07/12/24 Junior Chavira MD [address] [place] 122385 Assigned Heart and Vascular Provider 08/11/24 Coni Dhaliwal, METAL FABRICATING SHOP HELPER [address] [place] 281725 Nurse Practitioner Psychiatry & Neurology Vascular Neurology 11/04/24 Anel Long, REFUSE DRIVER [address] [place] [address]86[address] Nurse Practitioner Psychiatry & Neurology Vascular Neurology 11/04/24 Angel Balbuena MD [address] [place] [address] Assigned Heart and Vascular Surgical Provider 12/10/24 documented as of this encounter
--- OUTSIDE RECORDS SUMMARY | 2024-12-11 23:53 | XMS_ITS | Encounter Summary ---
Author Organization [place] Address [address] [place] [address]. [place] [address] Care Team Providers Care Absence Management Consultant Name Role Phone Wilber Vidales MD Primary Care Provider [phone] Wilber Vidales MD Unavailable Stephie Mahoney MD Unavailable [phone] Federica Foster RN Unavailable [phone] Unavailable [phone] Stephie Mahoney MD Unavailable [phone] Olga Garcia RN Unavailable [phone] Junior Chavira MD Unavailable [phone] Shantel Walker MD Unavailable [phone] Junior Chavira MD Unavailable [phone] Coni Dhaliwal SERVICE OBSERVER Unavailable [phone] Anel Long NP Unavailable [phone] Angel Balbuena MD Unavailable [phone] Encounter Details Date Type Department Care Team (Late st Contact Info) Description 05/15/2023 [place] Medical Advice [facility]ology [facility] [place] [address] [facility] 3rd [place] [address] Olga Garcia, RN Social History [...] week 06/27/2021 How [facility] do you attend [facility] services? 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 Gender Identity Male 03/03/2019 9:24 PM CDT [...] 9:30 AM CDT [facility] [address] [place] [address] 12/23/2024 4:00 PM CDT Office Visit [facility] [address] [facility] [address] [place] [phone] Cyrus Aleman MD [address] [place] [address] 094445 01/27/2025 10:00 AM CDT Office Visit [facility] Neurology [facility] 1650 [facility] [address] [place] [phone] Anel Long, UNIFORM ROOM ATTENDANT [address] [place], [place] [address] Coni Dhaliwal CNP [address] [facility] 450 [place], [place] 4545[address] 04/14/2025 11:15 AM CDT Office Visit [facility] Heart [facility] [address] [facility] [address] [place] [phone] Inessa Esteves DO [address] [place], [place] [address] 06/05/2025 12:30 PM CDT Office Visit [facility] [address]rd [place] [address] Stephie Mahoney MD [address] [place] [address] 496865 11/13/2025 11:00 AM CDT Virtual Visit [facility] [address]rd [place] [phone] Stephie Mahoney MD [address] [place] [address] documented as of this encounter Visit Diagnoses Not on filedocumented in this encounter Additional Health Concerns Infection Onset Date Last Indicated Resolved Time Rule Out COVID-19 10/12/2024 10/12/2024 10/12/2024 11:31 AM LPN CMA documented as of this encounter Care Teams Absence Management Consultant Relationship Specialty [place] [address] [address] [address] PCP - General Family Practice 11/21/16 [place] [address] [address] [address] Assigned PCP 01/30/21 07/11/24 Stephie Mahoney MD [address] [place] [address] 861415 Endocrinology, Diabetes, and Metabolism 04/22/21 Federica Foster RN [address] [place] [address] 098715 Blood Or Blood Bank Technician Diabetes Education 04/22/[address] [place] [address] [phone] Blood Or Blood Bank Technician Nutrition 04/22/21 Stephie Mahoney MD [address] 910295 Assigned Endocrinology Provider 05/08/21 Olga Garcia, RN Specialty Manager Utilization Review INTERNAL MEDICINE - ENDOCRINOLOGY, DIABETES & METABOLISM 09/29/22 Junior Chavira MD [address] [place] 126205 Cardiovascular Disease 05/29/24 [place] [address] [place] [address] Assigned PCP 07/12/24 Junior Chavira MD [address] [place] 727845 Assigned Heart and Vascular Provider 08/11/24 Coni Dhaliwal CNP [address] [place] [address] Nurse Practitioner Psychiatry & Neurology Vascular Neurology 11/04/24 Anel Long NP [address] [place] [address]505 Nurse Practitioner Psychiatry & Neurology Vascular Neurology 11/04/24 Angel Balbuena MD 909 [place], [place] 522705 Assigned Heart and Vascular Surgical Provider 12/10/24 documented as of this encounter
--- OUTSIDE RECORDS SUMMARY | 2024-12-11 23:53 | XMS_ITS | Encounter Summary ---
Author Organization [place] Address [address] [place] [address]. [place] [address] Care Team Providers Care Central Control Room Operator Name Role Phone Wilber Vidales MD Primary Care Provider [phone] Wilber Vidales MD Unavailable Stephie Mahoney MD Unavailable [phone] Federica Foster RN Unavailable Tova Welch RD Unavailable [phone] Stephie Mahoney MD Unavailable [phone] Olga Garcia RN Unavailable [phone] Matt Baez MD Unavailable [phone] Junior Chavira MD Unavailable [phone] Shantel Walker MD Unavailable [phone] Junior Chavira MD Unavailable [phone] Coni Dhaliwal SHIPWRIGHT HELPER Unavailable [phone] Anel Long DIE CASTING SUPERVISOR Unavailable [phone] Angel Balbuena MD Unavailable [phone] Encounter Details Date Type Department Care Team (Late st Contact Info) Description 04/27/[address] [facility] Endocrinology Clinic [address] 3rd [place] [address] Stephie Mahoney MD 420 [facility] 101 [place], [place] [address] Social History Tobacco Use Types Packs/Day Years [...] week 06/27/2021 How often do you attend [facility] or confucianism services? More than 4 [...] Answer Date Recorded PHQ-2 Score 0 03/30/2023 [facility] of Occupat ional Health - Occupational [...] place to sleep or slept in a [place] health care facility (including now)? No 06/27/2021 Education Answer Date Recorded What is the highest level of school you have completed or the highest degree you have received? 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 Gender Identity Male 03/03/2019 9:24 PM CDT Sexual Orientation Straight 03/03/2019 9: 24 PM CDT documented as of this encounter Plan of Treatment Upcoming Encounters Date Type Department Care Team (Late st Contact Info) Description 12/17/2024 9:30 AM CDT [address] [address] 12/23/2024 4:00 PM CDT Office Visit [facility] [address] [facility] [address] [place] [address] Cyrus Aleman MD [address] [place] [address] 01/27/2025 10:00 AM CDT Office Visit [facility] Neurology [facility] [address] [place] [address] [address] [place] [phone] Anel Long, DIE CASTING SUPERVISOR [address] [place], [place] [address] Coni Dhaliwal, SHIPWRIGHT HELPER [address] [facility] 450 [place], [place] [address] 04/14/2025 11:15 AM CDT Office Visit [facility] Heart [facility] [address] [facility] 140 [place] [phone] Inessa Esteves, [address] [place], [place] [address] 06/05/2025 12:30 PM CDT Office Visit [facility] Endocrinology Clinic [address] [phone] Stephie Mahoney MD [address] [place] [address] 175345 11/13/2025 11:00 AM CDT Virtual Visit [facility] Endocrinology [address] [phone] Stephie Mahoney MD [address] [place] [address] 369645 documented as of this encounter Visit Diagnoses Not on filedocumented in this encounter Additional Health Concerns Infection Onset Date Last Indicated Resolved Time Rule Out COVID-19 10/12/2024 10/12/2024 10/12/2024 11:31 AM CAREER TECHNICAL SUPERVISOR documented as of this encounter Care Teams Central Control Room Operator Relationship Specialty [place] [address] [address] [address] PCP - General Family Practice 11/21/16 [place] [address] [address] [address] Assigned PCP 01/30/21 07/11/24 Stephie Mahoney MD [address] [place] [address] 260765 Endocrinology, Diabetes, and Metabolism 04/22/21 Federica Foster RN [address] [place] [address] 190805 Aerial Photogrammetrist Diabetes Education 04/22/[address] [place] [address]65 Aerial Photogrammetrist Nutrition 04/22/21 Stephie Mahoney MD [address] [place] [address] Assigned Endocrinology Provider 05/08/21 Olga Garcia, RN Specialty Coil Former INTERNAL MEDICINE - ENDOCRINOLOGY, DIABETES & METABOLISM 09/29/22 Matt Baez MD [address] [facility] [address] [place] 507855 Assigned Heart and Vascular Provider 12/23/22 05/04/23 Junior Chavira MD [address] [place] [id number] Cardiovascular Disease 05/29/24 [place] [address] [place] [address] Assigned PCP 07/12/24 Junior Chavira MD [address] [place] [id number] Assigned Heart and Vascular Provider 08/11/24 Coni Dhaliwal CNP [address] [place] [address] Nurse Practitioner Psychiatry & Neurology Vascular Neurology 11/04/24 Anel Long NP [address] [place] [id number] Nurse Practitioner Psychiatry & Neurology Vascular Neurology 11/04/24 Angel Balbuena MD 909 [place], [place] 3184[address] Assigned Heart and Vascular Surgical Provider 12/10/24 documented as of this encounter
--- OUTSIDE RECORDS SUMMARY | 2024-12-11 23:53 | XMS_ITS | Encounter Summary ---
Author Organization [place] Address [address] [place], [place] [address]. [place] [address] Care Team Providers Care Surgical Scheduler Name Role Phone Wilber Vidales MD Primary Care Provider [phone] Wilber Vidales MD Unavailable Stephie Mahoney MD Unavailable Federica Foster RN Unavailable Tova Welch RD Unavailable [phone] Stephie Mahoney MD Unavailable [phone] Olga Garcia RN Unavailable [phone] Junior Chavira MD Unavailable [phone] Shantel Walker MD Unavailable [phone] Junior Cahvira MD Unavailable [phone] Coni Dhaliwal TRANSMISSIONS SYSTEMS OPERATOR Unavailable [phone] Anel Long NP Unavailable [phone] Angel Balbuena MD Unavailable [phone] Encounter Details Date Type Department Care Team (Late st Contact Info) Description 05/29/[address] [facility] Heart [address] [place] [phone] Damaris Tripathi Social History Tobacco Use Types [...] often do you attend chur ch or presybeterian services? More than 4 times per year [...] Date Recorded PHQ-2 Score 0 11/23/2023 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 6545 [facility] [address] [place] [phone] Cyrus Aleman MD [address] [place] [address] 01/27/2025 10:00 AM CDT Office Visit [facility] Neurology [facility] 1650 [facility] 200 [place] [phone] Anel Long, TIMBER CRUISER [address] [facility] [address] [place], [place] [address] Coni Dhaliwal CNP 3325 [facility] 450 [place], [place] [address] 04/14/2025 11:15 AM CDT Office Visit [facility] Heart [facility] [address] [facility] [address] [place] [phone] Inessa Esteves DO [address] [place], [place] [address] 06/05/2025 12:30 PM CDT Office Visit [facility] Endocrinology Clinic [address] [phone] Stephie Mahoney MD [address] 403335 11/13/2025 11:00 AM CDT Virtual Visit [facility] Endocrinology [address] [phone] Stephie Mahoney MD [address] 399075 documented as of this encounter Visit Diagnoses Not on filedocumented in this encounter Additional Health Concerns Infection Onset Date Last Indicated Resolved Time Rule Out COVID-19 10/12/2024 10/12/2024 10/12/2024 11:31 AM TRANSPORTATION CLERK documented as of this encounter Care Teams Surgical Scheduler Relationship Specialty [place] [address] [address] [address] PCP - General Family Practice 11/21/16 [place] [address] [address] [address] Assigned PCP 01/30/21 07/11/24 Stephie Mahoney MD [address] [place] [address] 655315 Endocrinology, Diabetes, and Metabolism 04/22/21 Federica Foster RN [address] [place] [address] [phone] Ticker Wirer Diabetes Education 04/22/[address] [place] [address] 365414 Ticker Wirer Nutrition 04/22/21 Stephie Mahoney MD [address] [phone] Assigned Endocrinology Provider 05/08/21 Olga Garcia, RN Specialty Supervisor Small Appliance Assembly INTERNAL MEDICINE - ENDOCRINOLOGY, DIABETES & METABOLISM 09/29/22 Junior Chavira MD [address] [place] [address] Cardiovascular Disease 05/29/24 [place] [address] [place] [address] Assigned PCP 07/12/24 Junior Chavira MD [address] [place] [address] Assigned Heart and Vascular Provider 08/11/24 Coni Dhaliwal CNP [address] [place] [address] Nurse Practitioner Psychiatry & Neurology Vascular Neurology 11/04/24 Anel Long NP [address] [address] Nurse Practitioner Psychiatry & Neurology Vascular Neurology 11/04/24 Angel Balbuena MD [address] [place] [address] Assigned Heart and Vascular Surgical Provider 12/10/24 documented as of this encounter
--- OUTSIDE RECORDS SUMMARY | 2024-12-11 23:53 | XMS_ITS | Encounter Summary ---
Author Organization [place] Address [address] [place] [address]. [place] [address] Care Team Providers Care Etcher Photoengraving Name Role Phone Wilber Vidales MD Primary [...] Unavailable [phone] Anel Long NP Unavailable [phone] Angel Balbuena MD Unavailable [phone] Encounter Details Date Type Department Care Team (Late st Contact Info) Description 06/24/2019 [facility] Medical Advice [facility] Cardiothoracic [address] [place] [address] Ej Haines MD [address] [facility] 207 [place] [address] Social History Tobacco Use Types [...] Answer Date Recorded PHQ-2 Score 0 08/27/2018 [facility] of Occupat ional Health - Occupational Stress [...] AM CDT 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 Neurology [address] 200 [place] [phone] Anel Long, BOTTLING EQUIPMENT SALES REPRESENTATIVE 3570 [employer] [employer], [place] 58[address]25 Coni Dhaliwal, COREY [address] 136085 04/14/2025 11:15 AM CDT Office [facility] Heart [facility] [address] [facility] [address] [place] [phone] LeroyreesevannesaEliazarInessasergio FunesDO [address] [place] [address] 06/05/2025 12:30 PM CDT Office Visit [facility] Endocrinology [address] 3rd [place] [phone] Stephie Mahoney MD [address] [place] [address] 664715 11/13/2025 11:00 AM CDT Virtual Visit [facility] Endocrinology [address] [phone] Stephie Mahoney MD [address] [place] [address] 311275 documented as of this encounter Visit Diagnoses Not on filedocumented in this encounter Additional Health Concerns Infection Onset Date Last Indicated Resolved Time Rule Out COVID-19 03/10/2022 03/10/2022 03/10/2022 1:37 AM CDT COVID-19 03/10/2022 03/10/2022 03/31/2022 11:3 9 PM CDT Rule Out COVID-19 10/12/2024 10/12/2024 10/12/2024 11:31 AM PARTY COORDINATOR documented as of this encounter Care Teams Etcher Photoengraving Relationship Specialty [place] [address] [address] [address] PCP - General Family Practice 11/21/16 [place] [address] [address] [address] Assigned PCP 10/31/20 01/29/21 Matt Baez MD [address] [facility] [address] [place] [address] Assigned Heart and Vascular Provider 06/11/20 06/23/22 [place] [address] [place] [address] Assigned PCP 11/02/16 10/30/20 [place] [address] [place] [address] Assigned PCP 01/30/21 07/11/24 Stephie Mahoney MD [address] [place] [address] Endocrinology, Diabetes, and Metabolism 04/22/21 Federica Foster RN [address] [place] [address] 49283 Twenty One Dealer Diabetes Education 04/22/[address] [place] [address] Twenty One Dealer Nutrition 04/22/21 Stephie Mahoney MD [address] [place] [address] 11770 Assigned Endocrinology Provider 05/08/21 Olga Garcia RN Specialty Scale Reclamation Tender INTERNAL MEDICINE - ENDOCRINOLOGY, DIABETES & METABOLISM 09/29/22 Matt Baez MD [address] [place] [address] Assigned Heart and Vascular Provider 12/23/22 05/04/23 Junior Chavira MD [address] [place] [address]215 Cardiovascular Disease 05/29/24 [place] [address] [place] [address] Assigned PCP 07/12/24 Junior Chavira MD [address] [place] [address] Assigned Heart and Vascular Provider 08/11/24 Coni Dhaliwal CNP [address] [place] 78[address]35 Nurse Practitioner Psychiatry & Neurology Vascular Neurology 11/04/24 Anel Long NP [address] [place] [address] Nurse Practitioner Psychiatry & Neurology Vascular Neurology 11/04/24 Angel Balbuena MD 909 [facility] [place] [place] [address] Assigned Heart and Vascular Surgical Provider 12/10/24 documented as of this encounter
--- OUTSIDE RECORDS SUMMARY | 2024-12-11 23:53 | XMS_ITS | Encounter Summary ---
Author Organization [place] Address [address] [place], [place] [address]. [place] [address] Care Team Providers Care Leather Staker Name Role Phone Wilber Vidales MD Primary Care Provider [phone] Wilber Vidales MD Unavailable Stephie Mahoney MD Unavailable Federica Foster RN Unavailable Tova Welch RD Unavailable [phone] Stephie Mahoney MD Unavailable [phone] Olga Garcia RN Unavailable [phone] Junior Chavira MD Unavailable [phone] Shantel Walker MD Unavailable [phone] Junior Chavira MD Unavailable [phone] Coni Dhaliwal COPYWRITING INTERN Unavailable [phone] Anel Long NP Unavailable [phone] Angel Balbuena MD Unavailable [phone] Encounter Details Date Type Department Care Team (Late st Contact Info) Description 06/02/2024 [facility] Heart [address] [place] [phone] Valerie Henderson Social History Tobacco Use Types [...] often do you attend chur ch or cheondoism services? 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 6545 [facility] [address] [place] [phone] Cyrus Aleman MD [address] [place] [address] 01/27/2025 10:00 AM CDT Office Visit [facility] Neurology [facility] 1650 [facility] 200 [place] [phone] Anel Long, ANIMAL COP [address] [facility] [address] [address] [place], [place] [address] Coni Dhaliwal CNP 8925 [facility] 450 [place], [place] [address] 04/14/2025 11:15 AM CDT Office Visit [facility] Heart [facility] [address] [facility] [address] [place] [phone] Inessa Esteves DO [address] [place], [place] [address] 06/05/2025 12:30 PM CDT Office Visit [facility] Endocrinology Clinic [address] [phone] Stephie Mahoney MD [address] 762265 11/13/2025 11:00 AM CDT Virtual Visit [facility] Endocrinology [address] [phone] Stephie Mahoney MD [address] 984955 documented as of this encounter Visit Diagnoses Not on filedocumented in this encounter Additional Health Concerns Infection Onset Date Last Indicated Resolved Time Rule Out COVID-19 10/12/2024 10/12/2024 10/12/2024 11:31 AM BIKE MECHANIC documented as of this encounter Care Teams Leather Staker Relationship Specialty [place] [address] [address] [address] PCP - General Family Practice 11/21/16 [place] [address] [address] [address] Assigned PCP 01/30/21 07/11/24 Stephie Mahoney MD [address] [place] [address] 369355 Endocrinology, Diabetes, and Metabolism 04/22/21 Federica Foster RN [address] [place] [address] 411475 Explosion Welder Diabetes Education 04/22/[address] [place] [address] 249584 Explosion Welder Nutrition 04/22/21 Stephie Mahoney MD [address] 717545 Assigned Endocrinology Provider 05/08/21 Olga Garcia, RN Specialty Gas Shovel Operator INTERNAL MEDICINE - ENDOCRINOLOGY, DIABETES & METABOLISM 09/29/22 Junior Chavira MD [address] [place] [address] Cardiovascular Disease 05/29/24 [place] [address] [place] [address] Assigned PCP 07/12/24 Junior Chavira MD [address] [place] [address] Assigned Heart and Vascular Provider 08/11/24 Coni Dhaliwal CNP [address] [place] [address] Nurse Practitioner Psychiatry & Neurology Vascular Neurology 11/04/24 Anel Long NP [address] [address] Nurse Practitioner Psychiatry & Neurology Vascular Neurology 11/04/24 Angel Balbuena MD [address] [place] [address] Assigned Heart and Vascular Surgical Provider 12/10/24 documented as of this encounter
--- OUTSIDE RECORDS SUMMARY | 2024-12-11 23:53 | XMS_ITS | Encounter Summary ---
Author Organization [place] Address [address] [place] [address]. [place] [address] Care Team Providers Care Blast Furnace Keeper Helper Name Role Phone Wilber Vidales MD Primary Care Provider [phone] Wilber Vidales MD Unavailable Stephie Mahoney MD Unavailable [phone] Federica Foster RN Unavailable Tova Welch RD Unavailable [phone] Stephie Mahoney MD Unavailable [phone] Olga Garcia RN Unavailable [phone] Matt Baez MD Unavailable [phone] Junior Chavira MD Unavailable [phone] Shantel Walker MD Unavailable [phone] Junior Chavira MD Unavailable [phone] Coni Dhaliwal PIPING SUPERVISOR Unavailable [phone] Anel Long FISHING VESSEL MATE Unavailable [phone] Angel Balbuena MD Unavailable [phone] Encounter Details Date Type Department Care Team (Late st Contact Info) Description 04/13/2023 [facility] Endocrinology Clinic [address] 3rd [place] [address] Stephie Mahoney MD 420 [facility] 101 [place], [place] [address] Social History Tobacco Use Types Packs/Day Years [...] week 06/27/2021 How often do you attend [facility] or adventism services? 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 Gender Identity Male 03/03/2019 9:24 PM CDT Sexual Orientation Straight 03/03/2019 9: 24 PM CDT documented as of this encounter Plan of Treatment Upcoming Encounters Date Type Department Care Team (Late st Contact Info) Description 12/17/2024 9:30 AM CDT [address] [address] 12/23/2024 4:00 PM CDT Office Visit [facility] 6545 [facility] [address] [place] [phone] Cyrus Aleman MD [address] [place] [address] 01/27/2025 10:00 AM CDT Office Visit [facility] Neurology [facility] [address] [place] [address] [address] [place] [phone] Anel Long, FISHING VESSEL MATE [address] [place], [place] [address] Coni Dhaliwal, PIPING SUPERVISOR [address] [facility] 450 [place], [place] [address] 04/14/2025 11:15 AM CDT Office Visit [facility] Heart [facility] [address] [facility] [place] 140 [place] [phone] Inessa Esteves, [address] [place], [place] [address] 06/05/2025 12:30 PM CDT Office Visit [facility] Endocrinology Clinic [address] [phone] Stephie Mahoney MD [address] [place] [address] 422605 11/13/2025 11:00 AM CDT Virtual Visit [facility] Endocrinology [address] [phone] Stephie Mahoney MD [address] [place] [address] 469795 documented as of this encounter Visit Diagnoses Not on filedocumented in this encounter Additional Health Concerns Infection Onset Date Last Indicated Resolved Time Rule Out COVID-19 10/12/2024 10/12/2024 10/12/2024 11:31 AM INDUSTRIAL DESIGN ENGINEER documented as of this encounter Care Teams Blast Furnace Keeper Helper Relationship Specialty [place] [address] [address] [address] PCP - General Family Practice 11/21/16 [place] [address] [address] [address] Assigned PCP 01/30/21 07/11/24 Stephie Mahoney MD [address] [place] [address] 477985 Endocrinology, Diabetes, and Metabolism 04/22/21 Federica Foster RN [address] [place] [address] 233645 Post Acute Care Registered Nurse Diabetes Education 04/22/[address] [place] [address] Post Acute Care Registered Nurse Nutrition 04/22/21 Stephie Mahoney MD [address] [place] [address] 278[address] Assigned Endocrinology Provider 05/08/21 Olga Garcia, RN Specialty Ocular Care Technologist INTERNAL MEDICINE - ENDOCRINOLOGY, DIABETES & METABOLISM 09/29/22 Matt Baez MD [address] [facility] [address] [place] 396545 Assigned Heart and Vascular Provider 12/23/22 05/04/23 Junior Chavira MD [address] [place] 874025 Cardiovascular Disease 05/29/24 [place] [address] [place] [address] Assigned PCP 07/12/24 Junior Chavira MD [address] [place] 721935 Assigned Heart and Vascular Provider 08/11/24 Coni Dhaliwal CNP [address] [place] 004835 Nurse Practitioner Psychiatry & Neurology Vascular Neurology 11/04/24 Anel Long NP [address] [place] 305905 Nurse Practitioner Psychiatry & Neurology Vascular Neurology 11/04/24 Angel Balbuena MD 909 [place], [place] [address] Assigned Heart and Vascular Surgical Provider 12/10/24 documented as of this encounter
--- OUTSIDE RECORDS SUMMARY | 2024-12-11 23:53 | XMS_ITS | Encounter Summary ---
Author Organization [facility] Address [address] [place] [address]. [place] [address] Care Team Providers Care Personnel Coordinator Name Role Phone Wilber Vidales MD Primary Care Provider [phone] Matt Baez MD Unavailable Wilber Vidales MD Unavailable Stephie Mahoney MD Unavailable Federica Foster RN Unavailable Tova Welch RD Unavailable [phone] Stephie Mahoney MD Unavailable Olga Garcia RN Unavailable [phone] Matt Baez MD Unavailable [phone] Junior Chavira MD Unavailable [phone] Shantel Walker MD Unavailable [phone] uJnior Chavira MD Unavailable [phone] Coni Dhaliwal CNP Unavailable [phone] Anel Long NP Unavailable [phone] Angel Balbuena MD Unavailable Encounter Details Date Type Department Care Team (Late st Contact Info) Description 07/05/2021 MyC Medical Advice [facility] Diabetes Education [address] 3rd [place] [address] Federica Foster, RN [address] [place] [address] Social History Tobacco Use Types Packs/Day Years [...] week 06/27/2021 How often do you attend [facility] or latter-day services? More than 4 times per year [...] Answer Date Recorded PHQ-2 Score 0 06/27/2021 [facility] [place] of Occupat ional Health - Occupational Stress [...] place to sleep or slept in a nursing home (including now)? No 06/27/2021 Education Answer Date Recorded What is the highest level of school you have completed or the highest degree you have received? 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 No / Unsure 06/27/2021 6:41 AM AIRCRAFT AIR CONDITIONING MECHANIC documented as of this encounter Plan of Treatment Upcoming Encounters Date Type Department Care Team (Late st Contact Info) Description 12/17/2024 9:30 AM CDT Lab [facility] [address] [place] [phone] 12/23/2024 4:00 PM CDT [facility] 6545 [facility] 450 [place] [phone] Cyrus Aleman MD [address] [place] [address] 268205 01/27/2025 10:00 AM CDT Office Visit [facility] Neurology [facility] [address] [place] [address] 200 [place] [phone] Anel Long PET TRAINING INSTRUCTOR [address] [place], [place] [address] Coni Dhaliwal, PLANT ACCOUNTANT [address] [facility] [address] [place], [place] [address] 04/14/2025 11:15 AM CDT Office Visit [facility] Heart [facility] [address] [facility] [address] [place] [phone] Inessa Esteves, [address] [place], [place] [address] 06/05/2025 12:30 PM CDT Office Visit [facility] Endocrinology [address]rd [place] [address] Stephie Mahoney MD [address] [place] [address] 101 [place], [place] [address] 11/13/2025 11:00 AM CDT Virtual Visit [facility] Endocrinology [address]rd [place] [phone] Stephie Mahoney MD [address] [phone] documented as of this encounter Visit Diagnoses Not on filedocumented in this encounter Additional Health Concerns Infection Onset Date Last Indicated Resolved Time Rule Out COVID-19 03/10/2022 03/10/2022 03/10/2022 1:37 AM CDT COVID-19 03/10/2022 03/10/2022 03/31/2022 11:3 9 PM CDT Rule Out COVID-19 10/12/2024 10/12/2024 10/12/2024 11:31 AM AIRCRAFT AIR CONDITIONING MECHANIC documented as of this encounter Care Teams Personnel Coordinator Relationship Specialty [place] [address] [place] [address] PCP - General Family Practice 11/21/16 Matt Baez MD [address] [facility] [address] [place] [address] Assigned Heart and Vascular Provider 06/11/20 06/23/22 [place] [address] [place] [address] Assigned PCP 01/30/21 07/11/24 Stephie Mahoney MD [address] [address] Endocrinology, Diabetes, and Metabolism 04/22/21 Federica Foster, RN [address] [place] [address] Wellness Coordinator Diabetes Education 04/22/[address] [place] [address] Wellness Coordinator Nutrition 04/22/21 Stepihe Mahoney MD [address] [place] [address] 101 [place] [address] Assigned Endocrinology Provider 05/08/21 Olga Garcia RN Specialty Emergency Room Orderly INTERNAL MEDICINE - ENDOCRINOLOGY, DIABETES & METABOLISM 09/29/22 Matt Baez MD [address] [place], [place] [address] Assigned Heart and Vascular Provider 12/23/22 05/04/23 Junior Chavira MD [address] [place] [address] Cardiovascular Disease 05/29/24 [place] [address] [place] [address] Assigned PCP 07/12/24 Junior Chavira MD [address] [place] 930835 Assigned Heart and Vascular Provider 08/11/24 Coni Dhaliwal, PLANT ACCOUNTANT [address] [place] [address] Nurse Practitioner Psychiatry & Neurology Vascular Neurology 11/04/24 Anel Long, PET TRAINING INSTRUCTOR [address] [place] 132905 Nurse Practitioner Psychiatry & Neurology Vascular Neurology 11/04/24 Angel Balbuena MD [address] [place] [address] Assigned Heart and Vascular Surgical Provider 12/10/24 documented as of this encounter
--- OUTSIDE RECORDS SUMMARY | 2024-12-11 23:53 | XMS_ITS | Encounter Summary ---
Author Organization [facility] Address [address] [place] [address]. [place] [address] Care Team Providers Care Financial Operations Clerk Name Role Phone Wilber Vidales MD Primary Care Provider [phone] Wilber Vidales MD Unavailable Matt Baez MD Unavailable [phone] Wilber Vidales MD Unavailable Wilber Vidales MD Unavailable Stephie Mahoney MD Unavailable [phone] Federica Foster RN Unavailable [phone] Unavailable [phone] Stephie Mahoney MD Unavailable [phone] Olga Garcia RN Unavailable [phone] Matt Baez MD Unavailable Junior Chavira MD Unavailable [phone] Shantel Walker MD Unavailable [phone] Junior Chavira MD Unavailable [phone] Coni Dhaliwal CNP Unavailable [phone] Anel Long NP Unavailable [phone] Angel Balbuena MD Unavailable [phone] Encounter Details Date Type Department Care Team (Late st Contact Info) Description 06/23/2019 MyC Medical Advice [facility] [address] [place] [address] Tiarra Poole, RN Social History Tobacco Use [...] Answer Date Recorded PHQ-2 Score 0 08/27/2018 [facility] [place] of Occupat ional Health - Occupational Stress [...] AM CDT 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 Gender Identity Male 03/03/2019 9:24 PM CDT Sexual Orientation Straight 03/03/2019 9: 24 PM CDT documented as of this encounter Plan of Treatment Upcoming Encounters Date Type Department Care Team (Late st Contact Info) Description 12/17/2024 9:30 AM CDT Lab [facility] [address] [place] [address] 12/23/2024 4:00 PM CDT Office Visit [facility] [address] [place] [phone] Cyrus Aleman MD [address] [place] [address] 768465 01/27/2025 10:00 AM CDT Office Visit [facility] Neurology [facility] [address] [place] [address] 200 [place] [phone] Anel Long NP [address] [place], [place] [address] Coni Dhaliwal CNP [address] [address] 04/14/2025 11:15 AM CDT Office Visit [facility] Heart [facility] [address] [facility] [address] [place] [address] Inessa Esteves DO [address] [place] [address] 06/05/2025 12:30 PM CDT Office Visit [facility] Endocrinology [facility] [address] [place] [address] [phone] Stephie Mahoney MD [address] [place] [address] 11/13/2025 11:00 AM CDT Virtual Visit [facility] Endocrinology [address] [phone] Stephie Mahoney MD [address] [place] [address] 579315 documented as of this encounter Visit Diagnoses Not on filedocumented in this encounter Additional Health Concerns Infection Onset Date Last Indicated Resolved Time Rule Out COVID-19 03/10/2022 03/10/2022 03/10/2022 1:37 AM CDT COVID-19 03/10/2022 03/10/2022 03/31/2022 11:3 9 PM CDT Rule Out COVID-19 10/12/2024 10/12/2024 10/12/2024 11:31 AM SYSTEMS ARCHITECT documented as of this encounter Care Teams Financial Operations Clerk Relationship Specialty [place] [address] [place] [address] PCP - General Family Practice 11/21/16 [place] [address] [place] [address] Assigned PCP 10/31/20 01/29/21 Matt Baez MD [address] [place] [address] Assigned Heart and Vascular Provider 06/11/20 06/23/22 [place] [address] [place] [address] Assigned PCP 11/02/16 10/30/20 [place] [address] [place] [address] Assigned PCP 01/30/21 07/11/24 Stephie Mahoney MD [address] [place] [address] 207395 Endocrinology, Diabetes, and Metabolism 04/22/21 Federica Foster RN [address] [place] [address] [id number] Kick Press Setter Diabetes Education 04/22/[address] [place] [address] Kick Press Setter Nutrition 04/22/21 Stephie Mahoney MD [address] [place] [address] Assigned Endocrinology Provider 05/08/21 Olga Garcia, RN Specialty Benefits Officer INTERNAL MEDICINE - ENDOCRINOLOGY, DIABETES & METABOLISM 09/29/22 Matt Baez MD [address] [place] [address] Assigned Heart and Vascular Provider 12/23/22 05/04/23 Junior Chavira MD [address] [place], [place] [address] Cardiovascular Disease 05/29/24 [place] [address] [place], [place] [address] Assigned PCP 07/12/24 Junior Chavira MD [address] [place], [place] [address] Assigned Heart and Vascular Provider 08/11/24 Coni Dhaliwal CNP [address] [place] [address]34[address] Nurse Practitioner Psychiatry & Neurology Vascular Neurology 11/04/24 Anel Long NP [address] [place] [address] Nurse Practitioner Psychiatry & Neurology Vascular Neurology 11/04/24 Angel Balbuena MD [address] [place] [address] 258595 Assigned Heart and Vascular Surgical Provider 12/10/24 documented as of this encounter
--- OUTSIDE RECORDS SUMMARY | 2024-12-11 23:53 | XMS_ITS | Encounter Summary ---
Author Organization [facility] Address [address] [place] [address]. [place] [address] Care Team Providers Care Reed Cleaner Name Role Phone Wilber Vidales MD Primary Care Provider [phone] Wilber Vidales MD Unavailable Stephie Mahoney MD Unavailable [phone] Federica Foster RN Unavailable [phone] Unavailable [phone] Stephie Mahoney MD Unavailable [phone] Olga Garcia RN Unavailable [phone] Junior Chavira MD Unavailable [phone] Shantel Walker MD Unavailable [phone] Junior Chavira MD Unavailable [phone] Coni Dhaliwal CONSULTING MARINE ENGINEER Unavailable [phone] Anel Long NP Unavailable [phone] Angel Balbuena MD Unavailable [phone] Encounter Details Date Type Department Care Team (Late st Contact Info) Description 05/14/2023 [facility] Endocrinology Clinic [place] 781349 [facility] 3rd [place] [address] Stephie Mahoney MD 420 [facility] 101 [place] [address] Social History Tobacco Use Types [...] often do you attend [facility] or hinduism services? More than 4 times [...] Answer Date Recorded PHQ-2 Score 0 03/30/2023 [facility] of Occupat ional Health - Occupational Stress [...] in a jail (including now)? 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 Gender Identity Male 03/03/2019 9:24 PM CDT [...] Info) Description 12/17/2024 9:30 AM CDT Lab [facility] [address] [place] [phone] 12/23/2024 4:00 PM CDT Office Visit [facility] 6545 [facility] 450 [place] [phone] Cyrus Aleman MD [address] [place] [address] 503885 01/27/2025 10:00 AM CDT Office Visit [facility] Neurology [facility] [address] [place] [address] 200 [place] [phone] Anel Long, METAL FINISH INSPECTOR [address] [place], [place] [address] Coni Dhaliwal, CONSULTING MARINE ENGINEER [address] [facility] 450 [place], [place] [address] 04/14/2025 11:15 AM CDT Office Visit [facility] Heart [facility] [address] [facility] [address] [place] [phone] Inessa Esteves, [address] [place], [place] [address] 06/05/2025 12:30 PM CDT Office Visit [facility] Endocrinology Clinic [address]rd [place] [address] Stephie Mahoney MD [address] [place] [address] 101 [place], [place] [address] 11/13/2025 11:00 AM CDT Virtual Visit [facility] Endocrinology [address]rd [place] [phone] Stephie Mahoney MD [address] [place] [address] documented as of this encounter Visit Diagnoses Not on filedocumented in this encounter Additional Health Concerns Infection Onset Date Last Indicated Resolved Time Rule Out COVID-19 10/12/2024 10/12/2024 10/12/2024 11:31 AM FIBERGLASS PRODUCT TESTER documented as of this encounter Care Teams Reed Cleaner Relationship Specialty [place] [address] [place] [address] PCP - General Family Practice 11/21/16 [place] [address] [place] [address] Assigned PCP 01/30/21 07/11/24 Stephie Mahoney MD [address] [place] [address] Endocrinology, Diabetes, and Metabolism 04/22/21 Federica Foster, RN [address] [place] [address] Field Tax Auditor Diabetes Education 04/22/[address] [place] [address] Field Tax Auditor Nutrition 04/22/21 Stephie Mahoney MD [address] [place] [address] Assigned Endocrinology Provider 05/08/21 Olga Garcia RN Specialty Deputy K 9 INTERNAL MEDICINE - ENDOCRINOLOGY, DIABETES & METABOLISM 09/29/22 Junior Chavira MD [address] [place] 4[address]75 Cardiovascular Disease 05/29/24 [place] [address] [place] [address] Assigned PCP 07/12/24 Junior Chavira MD [address] [place], [place] 9[address] Assigned Heart and Vascular Provider 08/11/24 Coni Dhaliwal CNP [address] [place], [place] [address] Nurse Practitioner Psychiatry & Neurology Vascular Neurology 11/04/24 Anel Long NP [address] [place], [place] 9[address] Nurse Practitioner Psychiatry & Neurology Vascular Neurology 11/04/24 Angel Balbuena MD 909 [place], [place] 168625 Assigned Heart and Vascular Surgical Provider 12/10/24 documented as of this encounter
--- OUTSIDE RECORDS SUMMARY | 2024-12-11 23:53 | XMS_ITS | Encounter Summary ---
Author Organization [facility] Address [address] [place] [address]. [place] [address] Care Team Providers Care Director Distribution Name Role Phone Wilber Vidales MD Primary Care Provider [phone] Wilber Vidales MD Unavailable Stephie Mahoney MD Unavailable Federica Foster RN Unavailable Tova Welch RD Unavailable [phone] Stephie Mahoney MD Unavailable [phone] Olga Garcia RN Unavailable [phone] Matt Baez MD Unavailable [phone] Junior Chavira MD Unavailable [phone] Shantel Walker MD Unavailable [phone] Junior Chavira MD Unavailable [phone] Coni Dhaliwal ALTERNATIVE ENERGY TECHNICIAN Unavailable [phone] Anel Long LEGAL CASHIER Unavailable [phone] Angel Balbuena MD Unavailable [phone] Encounter Details Date Type Department Care Team (Late st Contact Info) Description 04/02/2023 [facility] Endocrinology Clinic [address] [place] [address] Olga Garcia, RN Social History [...] week 06/27/2021 How often do you attend [facility] or jain services? 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 Gender Identity Male 03/03/2019 9:24 PM CDT Sexual Orientation Straight 03/03/2019 9: 24 PM CDT documented as of this encounter Plan of Treatment Upcoming Encounters Date Type Department Care Team (Late st Contact Info) Description 12/17/2024 9:30 AM CDT Lab [facility] [address] [place] [address] 12/23/2024 4:00 PM CDT Office Visit [address] [phone] Cyrus Aleman MD 909 [place] [address] 01/27/2025 10:00 AM CDT Office Visit [facility] Neurology Clinic [address] [place] [phone] Anel Long, LEGAL CASHIER [address] [place] [address] Coni Dhaliwal, ALTERNATIVE ENERGY TECHNICIAN [address] [facility] 450 [place], [place] [address] 04/14/2025 11:15 AM CDT Office Visit [facility] Heart [facility] [address] [place] [address] 140 [place] [phone] Inessa Esteves DO [address] [place], [place] [address] 06/05/2025 12:30 PM CDT Office Visit [facility] Endocrinology Clinic [address] [phone] Stephie Mahoney MD [address] [place] [address] 805795 11/13/2025 11:00 AM CDT Virtual Visit [facility] Endocrinology [address] [phone] Stephie Mahoney MD [address] [place] [address] 663585 documented as of this encounter Visit Diagnoses Not on filedocumented in this encounter Additional Health Concerns Infection Onset Date Last Indicated Resolved Time Rule Out COVID-19 10/12/2024 10/12/2024 10/12/2024 11:31 AM DRAW OFF WORKER documented as of this encounter Care Teams Director Distribution Relationship Specialty [place] [address] [place] [place] [address] PCP - General Family Practice 11/21/16 [place] [address] [place] [address] Assigned PCP 01/30/21 07/11/24 Stephie Mahoney MD [address] [place] [address] 183425 Endocrinology, Diabetes, and Metabolism 04/22/21 Federica Foster RN [address] [place] [address] 323685 Billet Grinder Diabetes Education 04/22/[address] [place] [address] 740594 Billet Grinder Nutrition 04/22/21 Stephie Mahoney MD [address] [place] [address] 386025 Assigned Endocrinology Provider 05/08/21 Olga Garcia RN Specialty Grades 1 6 Tutor INTERNAL MEDICINE - ENDOCRINOLOGY, DIABETES & METABOLISM 09/29/22 Matt Baez MD [address] [facility] [address] [place], [place] [address] Assigned Heart and Vascular Provider 12/23/22 05/04/23 Junior Chavira MD [address] [place] 25[address]85 Cardiovascular Disease 05/29/24 [place] [address] [place] [address] Assigned PCP 07/12/24 Junior Chavira MD [address] [place] 6[address]195 Assigned Heart and Vascular Provider 08/11/24 Coni Dhaliwal CNP [address] [place] [address] Nurse Practitioner Psychiatry & Neurology Vascular Neurology 11/04/24 Anel Long NP [address] [place], [place] [address] Nurse Practitioner Psychiatry & Neurology Vascular Neurology 11/04/24 Angel Balbuena MD 909 [place], [place] 37[address]85 Assigned Heart and Vascular Surgical Provider 12/10/24 documented as of this encounter
--- OUTSIDE RECORDS SUMMARY | 2024-12-11 23:53 | XMS_ITS | Encounter Summary ---
Author Organization [place] Address [address] [place], [place] [address] [address] Care Team Providers Care Handstitching Machine Collar Feller Name Role Phone Wilber Vidales MD Primary Care Provider [phone] Wilber Vidales MD Unavailable Stephie Mahoney MD Unavailable +[phone] Federica Foster RN Unavailable +[phone] Unavailable [phone] Stephie Mahoney MD Unavailable [phone] Olga Garcia RN Unavailable [phone] Junior Chavira MD Unavailable [phone] Shantel Walker MD Unavailable [phone] Junior Chavira MD Unavailable [phone] Coni Dhaliwal SURVEILLANCE OPERATOR Unavailable +[phone] Anel Long NP Unavailable [phone] Reason for Visit * Reason Onset Date Comments Appointment 05/29/2024 Referral per Isk os Encounter Details Date Type Department Care Team (Late st Contact Info) Description 05/29/2024 [facility] Heart [address] [place] [phone] Candy Trivedi MD [address] [place] [address] Appointment (Referral per Shikha) Social History Tobacco [...] any clubs o r organizations such as restorationist groups, unions, fraternal or athletic groups, or [...] Answer Date Recorded PHQ-2 Score 0 11/14/2024 [facility] [place] of Occupat ional Health - Occupational Stress [...] AM CDT 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 Gender Identity Male 03/03/2019 9:24 PM CDT Sexual Orientation Straight 03/03/2019 9: 24 PM CDT documented as of this encounter Miscellaneous Notes * Telephone Encounter - Kari Sanders - 05/29/2024 12:21 PM CDT [facility] Call Center Phone Message May a detailed [...] AM CDT Lab [facility] Laboratory [address] [place] [address] 12/23/2024 4:00 PM CDT Office Visit [address] [phone] Cyrus Aleman MD [address] [place] [address] 01/27/2025 10:00 AM CDT Office Visit [facility] Neurology [address] 200 [place] [address] Anel Long NP 6545 [place], [place] [address] Coni Dhaliwal, SURVEILLANCE OPERATOR [address] [address] 04/14/2025 11:15 AM CDT Office Visit [facility] Heart [facility] [address] [facility] [address] [place] [phone] Inessa Esteves, [address] [place] [address] 06/05/2025 12:30 PM CDT Office Visit [facility] Endocrinology Clinic [address] 3rd [place] [phone] Stephie Mahoney MD [address] [place] [address] 012005 11/13/2025 11:00 AM CDT Virtual Visit [facility] Endocrinology Clinic [address] [phone] Stephie Mahoney MD [address] [place] [address] 097775 documented as of this encounter Visit Diagnoses Not on filedocumented in this encounter Additional Health Concerns Infection Onset Date Last Indicated Resolved Time Rule Out COVID-19 10/12/2024 10/12/2024 10/12/2024 11:31 AM ANTENNA INSTALLER documented as of this encounter Care Teams Handstitching Machine Collar Feller Relationship Specialty [place] [address] [place] [address] [address] PCP - General Family Practice 11/21/16 [place] [address] [place] [address] [address] Assigned PCP 01/30/21 07/11/24 Stephie Mahoney MD [address] [place] [address] Endocrinology, Diabetes, and Metabolism 04/22/21 Federica Foster, RN 420 [place] [address] Fabrication Specialist Diabetes Education 04/22/[address] [place] [address] Fabrication Specialist Nutrition 04/22/21 Stephie Mahoney MD [address] [address] Assigned Endocrinology Provider 05/08/21 Olga Garcia RN Specialty Remote Sensing Specialist INTERNAL MEDICINE - ENDOCRINOLOGY, DIABETES & METABOLISM 09/29/22 Junior Chavira MD [address] [place] 895[address] Cardiovascular Disease 05/29/24 [place] [address] [place] [address] Assigned PCP 07/12/24 Junior Chavira MD [address] [place] 118815 Assigned Heart and Vascular Provider 08/11/24 Coni Dhaliwal, SURVEILLANCE OPERATOR [address] [place] [address] Nurse Practitioner Psychiatry & Neurology Vascular Neurology 11/04/24 Anel Long, TARIK [address] [place] [address] Nurse Practitioner Psychiatry & Neurology Vascular Neurology 11/04/24 documented as of this encounter
--- OUTSIDE RECORDS SUMMARY | 2024-12-11 23:53 | XMS_ITS | Encounter Summary ---
Author Organization [place] Address [address] [place] [address]. [place] [address] Care Team Providers Care Door Hanger Name Role Phone Wilber Vidales MD Primary Care Provider [phone] Wilber Vidales MD Unavailable Stephie Mahoney MD Unavailable [phone] Federica Foster RN Unavailable Tova Welch RD Unavailable [phone] Stephie Mahoney MD Unavailable [phone] Olga Garcia RN Unavailable [phone] Matt Baez MD Unavailable [phone] Junior Chavira MD Unavailable [phone] Shantel Walker MD Unavailable [phone] Junior Chavira MD Unavailable [phone] Coni Dhaliwal IN FLIGHT CREW MEMBER Unavailable [phone] Anel Long FIELD CROP HARVEST CONTRACTOR Unavailable [phone] Angel Balbuena MD Unavailable [phone] Encounter Details Date Type Department Care Team (Late st Contact Info) Description 04/27/2023 [facility] Endocrinology Clinic [address] 3rd [place] [address] Stephie Mahoney MD 420 [facility] 101 [place], [place] [address] Social History Tobacco Use Types Packs/Day Years [...] you attend [facility] or restorationist services? 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 Gender Identity Male 03/03/2019 9:24 PM CDT Sexual Orientation Straight 03/03/2019 9: 24 PM CDT documented as of this encounter Plan of Treatment Upcoming Encounters Date Type Department Care Team (Late st Contact Info) Description 12/17/2024 9:30 AM CDT [address] [address] 12/23/2024 4:00 PM CDT Office Visit [facility] 6545 [facility] [address] [place] [phone] Cyrus Aleman MD [address] [place] [address] 01/27/2025 10:00 AM CDT Office Visit [facility] Neurology [facility] [address] [place] [address] [address] [place] [phone] Anel Long, FIELD CROP HARVEST CONTRACTOR [address] [place], [place] [address] Coni Dhaliwal, IN FLIGHT CREW MEMBER [address] [facility] 450 [place], [place] [address] 04/14/2025 11:15 AM CDT Office Visit [facility] Heart [facility] [address] [facility] 140 [place] [phone] Inessa Esteves, [address] [place], [place] [address] 06/05/2025 12:30 PM CDT Office Visit [facility] Endocrinology Clinic [address] [phone] Stephie Mahoney MD [address] [place] [address]9745 11/13/2025 11:00 AM CDT Virtual Visit [facility] Endocrinology [address] [phone] Stephie Mahoney MD [address] [place] [address] 729125 documented as of this encounter Visit Diagnoses Not on filedocumented in this encounter Additional Health Concerns Infection Onset Date Last Indicated Resolved Time Rule Out COVID-19 10/12/2024 10/12/2024 10/12/2024 11:31 AM RAKING MACHINE OPERATOR documented as of this encounter Care Teams Door Hanger Relationship Specialty [place] [address] [place] [address] [address] PCP - General Family Practice 11/21/16 [place] [address] [place] [address] [address] Assigned PCP 01/30/21 07/11/24 Stephie Mahoney MD [address] [place] [address] 573155 Endocrinology, Diabetes, and Metabolism 04/22/21 Federica Foster RN [address] [place] [address] 180465 Internal Control Analyst Diabetes Education 04/22/[address] [place] [address] Internal Control Analyst Nutrition 04/22/21 Stephie Mahoeny MD [address] [place] [address] Assigned Endocrinology Provider 05/08/21 Olag Garcia, RN Specialty Pit Inspector INTERNAL MEDICINE - ENDOCRINOLOGY, DIABETES & METABOLISM 09/29/22 Matt Baez MD [address] [facility] [address] [place] [address]497[address] Assigned Heart and Vascular Provider 12/23/22 05/04/23 Junior Chavira MD [address] [place] 84[address]85 Cardiovascular Disease 05/29/24 [place] [address] [place] [address] Assigned PCP 07/12/24 Junior Chavira MD [address] [place] 4[address]65 Assigned Heart and Vascular Provider 08/11/24 Coni Dhaliwal CNP [address] [place] 5[address] Nurse Practitioner Psychiatry & Neurology Vascular Neurology 11/04/24 nAel Long NP [address] [place] [place] [address] Nurse Practitioner Psychiatry & Neurology Vascular Neurology 11/04/24 Angel Balbuena MD 909 [place], [place] 201[address] Assigned Heart and Vascular Surgical Provider 12/10/24 documented as of this encounter
--- OUTSIDE RECORDS SUMMARY | 2024-12-11 23:53 | XMS_ITS | Encounter Summary ---
Author Organization [place] Address [address] [place] [address]. [place] [address] Care Team Providers Care Optical Goods Worker Name Role Phone Wilber Vidales MD Primary Care Provider [phone] Wilber Vidales MD Unavailable Stephie Mahoney MD Unavailable [phone] Federica Foster RN Unavailable +[phone] Unavailable [phone] Stephie Mahoney MD Unavailable [phone] Olga Garcia RN Unavailable [phone] Matt Baez MD Unavailable [phone] Junior Chavira MD Unavailable [phone] Shantel Walker MD Unavailable [phone] Junior Chavira MD Unavailable [phone] Coni Dhaliwal CNP Unavailable [phone] Anel Long NP Unavailable [phone] Reason for Visit * Reason Onset Date Comments Call Back 04/02/2023 Encounter Details Date Type Department Care Team (Late st Contact Info) Description 04/02/2023 [facility] Endocrinology Clinic [address] 3rd [place] [phone] Stephie Mahoney MD 420 [facility] 101 [place] [address] Call Back Social History Tobacco Use Types [...] often do you attend chur ch or adventist services? 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 No / Unsure 05/14/2023 7:33 AM CDT documented as of this encounter Miscellaneous Notes * Telephone Encounter - YocastaNishantCarey - 04/02/2023 1:07 PM CDT [facility] Call Center Phone Message May a [...] Info) Description 12/17/2024 9:30 AM CDT Lab [facility] [address] [place] [address] 12/23/2024 4:00 PM CDT Office Visit [facility] [address] [place] [phone] Cyrus Aleman MD [address] [place] [address]37[address] 01/27/2025 10:00 AM CDT Office Visit [facility] Neurology [facility] [address] [place] [address] 200 [place] [phone] Anel Long STOCKROOM ATTENDANT 5301 [place], [place] [address] Coni Dhaliwal, ICE BAG ASSEMBLER 6545 [facility] 450 [place] [address] 04/14/2025 11:15 AM CDT Office Visit [facility] Heart [facility] [address] [facility] [address] [place] [phone] Inessa Esteves DO [address] [place] [address] 06/05/2025 12:30 PM CDT Office Visit [facility] Endocrinology Clinic [place] [address] [facility] 3rd [place] [phone] Stephie Mahoney MD [address] 8[address]365 11/13/2025 11:00 AM CDT Virtual Visit [facility] Endocrinology [address] [phone] Stephie Mahoney MD [address] [place] [address] 398195 documented as of this encounter Visit Diagnoses Not on filedocumented in this encounter Additional Health Concerns Infection Onset Date Last Indicated Resolved Time Rule Out COVID-19 10/12/2024 10/12/2024 10/12/2024 11:31 AM VETERINARY SURGERY TECHNOLOGIST documented as of this encounter Care Teams Optical Goods Worker Relationship Specialty [place] [address] [place] [address] [address] PCP - General Family Practice 11/21/16 [place] [address] [place] [address] [address] Assigned PCP 01/30/21 07/11/24 Stephie Mahoney MD [address] [place] [address] Endocrinology, Diabetes, and Metabolism 04/22/21 Federica Foster, RN 420 [place] [address] Speech Communication Professor Diabetes Education 04/22/21 Tova Welch, RD [address] [place] [address] 600354 Speech Communication Professor Nutrition 04/22/21 Stephie Mahoney MD 420 [facility] 101 [place], [place] [address] Assigned Endocrinology Provider 05/08/21 Olga Garcia RN Specialty Printing Roller Handler INTERNAL MEDICINE - ENDOCRINOLOGY, DIABETES & METABOLISM 09/29/22 Matt Baez MD [address] [place] [address] Assigned Heart and Vascular Provider 12/23/22 05/04/23 Junior Chavira MD [address] [place] 6[address] Cardiovascular Disease 05/29/24 [place] [address] [place] [address] Assigned PCP 07/12/24 Junior Chavira MD [address] [place] [address] Assigned Heart and Vascular Provider 08/11/24 Coni Dhaliwal CNP [address] [place] [address] Nurse Practitioner Psychiatry & Neurology Vascular Neurology 11/04/24 Anel Long NP [address] [place] [address] Nurse Practitioner Psychiatry & Neurology Vascular Neurology 11/04/24 documented as of this encounter
--- OUTSIDE RECORDS SUMMARY | 2024-12-11 23:53 | XMS_ITS | Encounter Summary ---
Author Organization [place] Address [address] [place] [address]. [place] [address] Care Team Providers Care Program Counselor Name Role Phone Wilber Vidales MD Primary Care Provider [phone] Wilber Vidales MD Unavailable Matt Baez MD Unavailable [phone] Wilber Vidales MD Unavailable Wilber Vidales MD Unavailable Stephie Mahoney MD Unavailable [phone] Federica Foster RN Unavailable [phone] Unavailable [phone] Stephie Mahoney MD Unavailable +[phone] Olga Garcia RN Unavailable +[phone] Matt Baez MD Unavailable Junior Chavira MD Unavailable [phone] Shantel Walker MD Unavailable [phone] Junior Chavira MD Unavailable [phone] Coni Dhaliwal CNP Unavailable [phone] Anel Long NP Unavailable [phone] Angel Balbuena MD Unavailable [phone] Encounter Details Date Type Department Care Team (Late st Contact Info) Description 06/23/2019 [facility] Medical Advice [facility] Cardiothoracic [address] [place] [address] Ej Haines MD [address] [place] [address] [facility] 207 [place] [address] Social History Tobacco Use Types [...] and Family Once a week 03/17/2019 Attends Restoration Services More than 4 times per year [...] Answer Date Recorded PHQ-2 Score 0 08/27/2018 [facility] [place] of Occupat ional Health - Occupational Stress [...] CDT 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 Gender Identity Male 03/03/2019 9:24 PM CDT Sexual Orientation Straight 03/03/2019 9: 24 PM CDT documented as of this encounter Plan of Treatment Upcoming Encounters Date Type Department Care Team (Late st Contact Info) Description 12/17/2024 9:30 AM CDT Lab [facility] Laboratory [address] [place] [phone] 12/23/2024 4:00 PM CDT Office Visit [address] [phone] Cyrus Aleman MD [address] [place] [address] 716175 01/27/2025 10:00 AM CDT Office Visit [facility] Neurology [address] 200 [place] [phone] Anel Long, EDGE BEADER 8128 [place], [place] [address] Coni Dhaliwal, COREY [address] [address]17[address] 04/14/2025 11:15 AM CDT Office Visit [facility] Heart [facility] [address] [facility] [address] [place] [phone] LeroyreesevannesaEliazarInessasergio FunesDO [address] [place] [address] 06/05/2025 12:30 PM CDT Office Visit [facility] Endocrinology [address] 3rd [place] [phone] Stephie Mahoney MD [address] [place] [address] 070445 11/13/2025 11:00 AM CDT Virtual Visit [facility] Endocrinology [address] [phone] Stephie Mahoney MD [address] [place] [address] 756205 documented as of this encounter Visit Diagnoses Not on filedocumented in this encounter Additional Health Concerns Infection Onset Date Last Indicated Resolved Time Rule Out COVID-19 03/10/2022 03/10/2022 03/10/2022 1:37 AM CDT COVID-19 03/10/2022 03/10/2022 03/31/2022 11:3 9 PM CDT Rule Out COVID-19 10/12/2024 10/12/2024 10/12/2024 11:31 AM MICROBIOLOGY LAB ASSISTANT documented as of this encounter Care Teams Program Counselor Relationship Specialty [place] [address] [address] [address] [address] PCP - General Family Practice 11/21/16 [place] [address] [address] [address] Assigned PCP 10/31/20 01/29/21 Matt Baez MD [address] [facility] [address] [place] [address] Assigned Heart and Vascular Provider 06/11/20 06/23/22 [place] [address] [place] [address] Assigned PCP 11/02/16 10/30/20 [place] [address] [place] [address] Assigned PCP 01/30/21 07/11/24 Stephie Mahoney MD [address] [place] [address] Endocrinology, Diabetes, and Metabolism 04/22/21 Federica Foster RN [address] [place] [address] Client Retention Specialist Diabetes Education 04/22/[address] [place] [address] Client Retention Specialist Nutrition 04/22/21 Stephie Mahoney MD [address] [place] [address] Assigned Endocrinology Provider 05/08/21 Olga Garcia RN Specialty Poultry Veterinarian INTERNAL MEDICINE - ENDOCRINOLOGY, DIABETES & METABOLISM 09/29/22 Matt Baze MD [address] [place] [address] Assigned Heart and Vascular Provider 12/23/22 05/04/23 Junior Chavira MD [address] [place] [address] Cardiovascular Disease 05/29/24 [place] [address] [place] [address] Assigned PCP 07/12/24 Junior Chavira MD [address] [place] [address] Assigned Heart and Vascular Provider 08/11/24 Coni Dhaliwal CNP [address] [place] [address] Nurse Practitioner Psychiatry & Neurology Vascular Neurology 11/04/24 Anel Long NP [address] [place] [address] Nurse Practitioner Psychiatry & Neurology Vascular Neurology 11/04/24 Angel Balbuena MD [address] [facility] [place], [place] [address] Assigned Heart and Vascular Surgical Provider 12/10/24 documented as of this encounter
--- NOTE | 2024-12-11 23:54 | CRLHL7_ITS ---
For Patients: As a result of the Century Cures Act, medical imaging exams and procedure reports are released immediately into your electronic medical record. You may view this report before your referring provider. If you have questions, please contact your health care provider. INDICATION: Left arm numbness, clumsiness. TECHNIQUE: CT head without contrast. COMPARISON: None. 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 Ex vacuo dilatation of the right lateral ventricle frontal horn. Mild generalized cerebral volume loss. Sheridan-white differentiation is otherwise maintained. Low-attenuation changes in the left frontal lobe white matter, nonspecific may relate to posttreatment changes or chronic small vessel ischemic disease. No hydrocephalus. Basilar cisterns are patent. No evidence of intracranial hemorrhage, extra-axial collection, or midline shift. Atherosclerotic calcifications of the cavernous carotids and carotid siphons. The visualized paranasal sinuses and mastoid air cells demonstrate no acute or significant findings. The visualized orbits are grossly unremarkable. No skull fractures. IMPRESSION: No acute intracranial hemorrhage or mass effect. Please note that all CT scans at this facility use dose modulation, iterative reconstruction, and/or weight-based dosing when appropriate to reduce radiation dose to as low as reasonably achievable. Dictated by Reji Mullen MD @ 12/12/2024 12:21:51 AM (Electronically Signed)
--- NOTE | 2024-12-11 23:54 | CRLHL7_ITS ---
For Patients: As a result of the Century Cures Act, medical imaging exams and procedure reports are released immediately into your electronic medical record. You may view this report before your referring provider. If you have questions, please contact your health care provider. DATE: 12/11/2024 CLINICAL HISTORY: Patient with focal neurological deficits. TECHNIQUE: Standard helical CT image acquisition through the intracranial circulation following intravenous administration of contrast material with bolus tracking. 2D and 3D MIP images for post-processing were performed and interpreted on an independent workstation and 3D images were permanently archived. COMPARISON: CT same day. FINDINGS: There is no cerebral aneurysm or large vessel occlusion. There is intracranial atherosclerosis with multifocal moderate to severe narrowing in the right vertebral and basilar arteries. The right internal carotid artery is normal. The right middle cerebral artery and its branches are normal. The right anterior cerebral artery and its branches are normal. The left internal carotid artery is normal. The left middle cerebral artery and its branches are normal. The left anterior cerebral artery and its branches are normal. The anterior communicating artery is well visualized and appears normal. The left vertebral artery terminates in the PICA. The right vertebral artery is dominant. The right posterior cerebral artery is normal. The left posterior cerebral artery is normal. The visualized venous structures are patent. IMPRESSION: 1. No cerebral aneurysm or large vessel occlusion. 2. Intracranial atherosclerosis with multifocal moderate to severe narrowing in the right vertebral and basilar arteries. Please note that all CT scans at this facility use dose modulation, iterative reconstruction, and/or weight-based dosing when appropriate to reduce radiation dose to as low as reasonably achievable. Dictated by Kingsley Durán MD @ 12/12/2024 8:14:38 AM (Electronically Signed)
--- NOTE | 2024-12-11 23:54 | CRLHL7_ITS ---
For Patients: As a result of the Century Cures Act, medical imaging exams and procedure reports are released immediately into your electronic medical record. You may view this report before your referring provider. If you have questions, please contact your health care provider. DATE: 12/11/2024 CLINICAL HISTORY: Patient with focal neurological deficits. TECHNIQUE: Standard helical CT image acquisition of the neck up to the skull base after bolus intravenous contrast enhancement. 2D and 3D MIP images for post-processing were performed and interpreted on an independent workstation and 3D images were permanently archived. COMPARISON: CT same day. FINDINGS: The origins of the great vessels from the aortic arch are patent. The origin of the right vertebral artery is patent. The origin of the left vertebral artery is patent. The common carotid arteries are patent. There is plaque without stenosis at the origin of the right internal carotid artery. There is plaque without stenosis at the origin of the left internal carotid artery. The rest of the cervical segments of the internal carotid arteries are patent up to the skull base. The right vertebral artery is dominant. The cervical segments of the vertebral arteries are patent up to the skull base. The visualized lung apices are unremarkable. The thyroid gland is unremarkable. The soft tissues of the neck are unremarkable. There are degenerative changes in the cervical spine. IMPRESSION: Patent cervical vasculature. Please note that all CT scans at this facility use dose modulation, iterative reconstruction, and/or weight-based dosing when appropriate to reduce radiation dose to as low as reasonably achievable. Dictated by Kingsley Durán MD @ 12/12/2024 8:11:38 AM (Electronically Signed)
--- OUTSIDE RECORDS SUMMARY | 2024-12-11 23:54 | XMS_ITS | Encounter Summary ---
Author Organization [place] Address [address] [place] [address]. [place] [address] Care Team Providers Care Aegis Console Operator Track Name Role Phone Wilber Vidales MD Primary Care Provider [phone] Wilber Vidales MD Unavailable Stephie Mahoney MD Unavailable [phone] Federica Foster RN Unavailable Tova Welch RD Unavailable [phone] Stephie Maohney MD Unavailable +[phone] Olga Garcia RN Unavailable [phone] Matt Baez MD Unavailable [phone] Junior Chavira MD Unavailable [phone] Shantel Walker MD Unavailable +[phone] Junior Chavira MD Unavailable [phone] Coni Dhaliwal SYNTHETIC CHEMIST Unavailable +[phone] Anel Long PATIENT NAVIGATOR Unavailable [phone] Angel Balbuena MD Unavailable [phone] Encounter Details Date Type Department Care Team (Late st Contact Info) Description 07/04/2022 MyC Medical Advice [facility] [address] [place] [address] [place] [address] [place] [address] Social History Tobacco Use Types [...] How often do you attend chur or christianity services? More than 4 times [...] Answer Date Recorded PHQ-2 Score 0 04/14/2022 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 Gender Identity Male 03/03/2019 9:24 PM CDT Sexual Orientation Straight 03/03/2019 9: 24 PM CDT documented as of this encounter Plan of Treatment Upcoming Encounters Date Type Department Care Team (Late st Contact Info) Description 12/17/2024 9:30 AM CDT [address] [address] 12/23/2024 4:00 PM CDT Office Visit [facility] [address] [facility] [address] [place] [phone] Cyrus Aleman MD [address] [place] [address] 01/27/2025 10:00 AM CDT Office Visit [facility] Neurology [facility] [address] [place] [address] [address] [place] [phone] Anel Long, PATIENT NAVIGATOR [address] [place], [place] [address] Coni Dhaliwal, SYNTHETIC CHEMIST [address] [facility] [address] [place], [place] [address] 04/14/2025 11:15 AM CDT Office Visit [facility] [address] [facility] [address] [place] [phone] Inessa Esteves, [address] [place], [place] [address] 06/05/2025 12:30 PM CDT Office Visit [facility] Endocrinology Clinic [address] [phone] Stephie Mahoney MD [address] [place] [address] 979585 11/13/2025 11:00 AM CDT Virtual Visit [facility] Endocrinology [address] [phone] Stephie Mahoney MD [address] [place] [address] 720845 documented as of this encounter Visit Diagnoses Not on filedocumented in this encounter Additional Health Concerns Infection Onset Date Last Indicated Resolved Time Rule Out COVID-19 10/12/2024 10/12/2024 10/12/2024 11:31 AM MOSHGIACH documented as of this encounter Care Teams Aegis Console Operator Track Relationship Specialty [place] [address] [address] [place] [address] PCP - General Family Practice 11/21/16 [place] [address] [address] [address] Assigned PCP 01/30/21 07/11/24 Stephie Mahoney MD [address] [place] [address] Endocrinology, Diabetes, and Metabolism 04/22/21 Federica Foster RN [address] [place] [address] [phone] It Consultant Diabetes Education 04/22/[address] [place] [address] It Consultant Nutrition 04/22/21 Stephie Mahoney MD [address] [place] [address] Assigned Endocrinology Provider 05/08/21 Olga Garcia, RN Specialty Property Administrator INTERNAL MEDICINE - ENDOCRINOLOGY, DIABETES & METABOLISM 09/29/22 Matt Baez MD [address] [facility] [address] [place] 976945 Assigned Heart and Vascular Provider 12/23/22 05/04/23 Junior Chavira MD [address] [place] [id number] Cardiovascular Disease 05/29/24 [place] [address] [place] [address] Assigned PCP 07/12/24 Junior Chavira MD [address] [place] 957525 Assigned Heart and Vascular Provider 08/11/24 Coni Dhaliwal CNP [address] [place] [address] Nurse Practitioner Psychiatry & Neurology Vascular Neurology 11/04/24 Anel Long NP [address] [place] [address] [place] [address] Nurse Practitioner Psychiatry & Neurology Vascular Neurology 11/04/24 Angel Balbuena MD [address] [place], [place] 338415 Assigned Heart and Vascular Surgical Provider 12/10/24 documented as of this encounter
--- OUTSIDE RECORDS SUMMARY | 2024-12-11 23:54 | XMS_ITS | Encounter Summary ---
Author Organization [place] Address [address] [place] [address]. [place] [address] Care Team Providers Care Aquatics Manager Name Role Phone Wilber Vidales MD Primary Care Provider [phone] Wilber Vidales MD Unavailable Stephie Mahoney MD Unavailable [phone] Federica Foster RN Unavailable Tova Welch RD Unavailable [phone] Stephie Mahoney MD Unavailable [phone] Olga Garcia RN Unavailable [phone] Matt Baez MD Unavailable [phone] Junior Chavira MD Unavailable [phone] Shantel Walker MD Unavailable [phone] Junior Chavira MD Unavailable [phone] Coni Dhaliwal TECHNICIAN TEST SYSTEMS Unavailable [phone] Anel Long ADVISORY SERVICES ASSOCIATE Unavailable [phone] Angel Balbuena MD Unavailable [phone] Encounter Details Date Type Department Care Team (Late st Contact Info) Description 01/24/2023 [facility] Gastroenterology Clinic [address] 4th [place] [address] Dinah Velazquez Social History Tobacco [...] week 06/27/2021 How often do you attend [facility] or amish services? More than 4 times [...] Answer Date Recorded PHQ-2 Score 0 09/29/2022 [facility] Occupat ional Health - Occupational Stress [...] place to sleep or slept in a mcc (including now)? No 06/27/2021 Education Answer Date Recorded What is the highest level of school you have completed or the highest degree you have received? 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 [facility] [place], [place] [address] Coni Dhaliwal, TECHNICIAN TEST SYSTEMS 90[address] [facility] 450 [place], [place] [address] 04/14/2025 11:15 AM CDT Office Visit [facility] Heart [facility] [address] [facility] [address] [place] [phone] Inessa Esteves DO [address] [facility] [address] [place], [place] [address] 06/05/2025 12:30 PM CDT Office Visit [facility] Endocrinology Clinic [address] [phone] Stephie Mahoney MD [address] [place] [address] 592675 11/13/2025 11:00 AM CDT Virtual Visit [facility] Endocrinology Clinic [address] [phone] Stephie Mahoney MD [address] 095285 documented as of this encounter Visit Diagnoses Not on filedocumented in this encounter Additional Health Concerns Infection Onset Date Last Indicated Resolved Time Rule Out COVID-19 10/12/2024 10/12/2024 10/12/2024 11:31 AM MARKET DEVELOPMENT EXECUTIVE documented as of this encounter Care Teams Aquatics Manager Relationship Specialty [place] [address] [address] [address] PCP - General Family Practice 11/21/16 [place] [address] [address] [address] Assigned PCP 01/30/21 07/11/24 Stephie Mahoney MD [address] [place] [address] 490175 Endocrinology, Diabetes, and Metabolism 04/22/21 Federica Foster RN 420 [place], [place] 578435 Aging Department Supervisor Diabetes Education 04/22/[address] [place] [address] 610264 Aging Department Supervisor Nutrition 04/22/21 Stephie Mahoney MD [address] 008105 Assigned Endocrinology Provider 05/08/21 Olga Garcia, RN Specialty Alumina Plant Supervisor INTERNAL MEDICINE - ENDOCRINOLOGY, DIABETES & METABOLISM 09/29/22 Matt Baez MD [address] [facility] [address] [place] 018285 Assigned Heart and Vascular Provider 12/23/22 05/04/23 Junior Chavira MD [address] [place] [id number] Cardiovascular Disease 05/29/24 [place] [address] [place] [address] Assigned PCP 07/12/24 Junior Chavira MD [address] [place] [id number] Assigned Heart and Vascular Provider 08/11/24 Coni Dhaliwal CNP [address] [place] [id number] Nurse Practitioner Psychiatry & Neurology Vascular Neurology 11/04/24 Anel Long NP [address] [place] [id number] Nurse Practitioner Psychiatry & Neurology Vascular Neurology 11/04/24 Angel Balbuena MD [address] [place] [address] Assigned Heart and Vascular Surgical Provider 12/10/24 documented as of this encounter
--- OUTSIDE RECORDS SUMMARY | 2024-12-11 23:54 | XMS_ITS | Encounter Summary ---
Author Organization [place] Address [address] [place] [address]. [place] [address] Care Team Providers Care Security Door Installer Name Role Phone Wilber Vidales MD Primary Care Provider [phone] Wilber Vidales MD Unavailable Stephie Mahoney MD Unavailable [phone] Federica Foster RN Unavailable Tova Welch RD Unavailable [phone] Stephie Mahoney MD Unavailable [phone] Olga Garcia RN Unavailable [phone] Matt Baez MD Unavailable [phone] Junior Chavira MD Unavailable [phone] Shantel Walker MD Unavailable [phone] Junior Chavira MD Unavailable [phone] Coni Dhaliwal AUTOMATION QA ANALYST Unavailable [phone] Anel Long SALES AND MARKETING COORDINATOR Unavailable [phone] Angel Balbuena MD Unavailable [phone] Encounter Details Date Type Department Care Team (Late st Contact Info) Description 01/24/2023 MyC Medical [facility] Endocrinology Clinic [address] 3rd [place] [address] Stephie Mahoney MD 420 [facility] 101 [place], [place] [address] Social History Tobacco Use Types Packs/Day Years [...] How often do you attend [facility] or amish services? More than 4 times [...] Answer Date Recorded PHQ-2 Score 0 09/29/2022 [facility] of Occupat ional Health - [...] place to sleep or slept in a chcf (including now)? No 06/27/2021 Education Answer Date Recorded What is the highest level of school you have completed or the highest degree you have received? 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 Gender Identity Male 03/03/2019 9:24 PM CDT [...] AM CDT Lab [facility] [address] [place] [phone] 12/23/2024 4:00 PM CDT Office Visit [facility] 6545 [facility] 450 [place] [phone] Cyrus Aleman MD [address] [place] [address] 345115 01/27/2025 10:00 AM CDT Office Visit [facility] Neurology [facility] [address] [place] [address] 200 [place] [phone] Anel Long, SALES AND MARKETING COORDINATOR [address] [place], [place] [address] Coni Dhaliwal, AUTOMATION QA ANALYST [address] [facility] 450 [place], [place] [address] 04/14/2025 11:15 AM CDT Office Visit [facility] Heart [facility] [address] [facility] [address] [place] [phone] Inessa Esteves, [address] [place], [place] [address] 06/05/2025 12:30 PM CDT Office Visit [facility] Endocrinology [address] [place] [address] Stephie Mahoney MD [address] [place] [address] 101 [place], [place] [address]555 11/13/2025 11:00 AM CDT Virtual Visit [facility] Endocrinology [address] [place] [phone] Stephie Mahoney MD [address] [place] [address] documented as of this encounter Visit Diagnoses Not on filedocumented in this encounter Additional Health Concerns Infection Onset Date Last Indicated Resolved Time Rule Out COVID-19 10/12/2024 10/12/2024 10/12/2024 11:31 AM LIVESTOCK SLAUGHTERER documented as of this encounter Care Teams Security Door Installer Relationship Specialty [place] [address] [facility] [place] [address] PCP - General Family Practice 11/21/16 [place] [address] [place] [address] Assigned PCP 01/30/21 07/11/24 Stephie Mahoney MD [address] [place] [address] Endocrinology, Diabetes, and Metabolism 04/22/21 Federica Foster, RN [address] [place] [address] Clinical Research Tech Diabetes Education 04/22/[address] [place] [address] Clinical Research Tech Nutrition 04/22/21 Stephie Mahoney MD [address] [place] [address] Assigned Endocrinology Provider 05/08/21 Olga Garcia RN Specialty Director Inbound Sales INTERNAL MEDICINE - ENDOCRINOLOGY, DIABETES & METABOLISM 09/29/22 Matt Baez MD [address] [place] [address]055 Assigned Heart and Vascular Provider 12/23/22 05/04/23 Junior Chavira MD [address] [place] 60[address] Cardiovascular Disease 05/29/24 [place] [address] [place], [place] 6025[address] Assigned PCP 07/12/24 Junior Chavira MD [address] [place] 778175 Assigned Heart and Vascular Provider 08/11/24 Coni Dhaliwal, COREY [address] [place] [address]95 Nurse Practitioner Psychiatry & Neurology Vascular Neurology 11/04/24 Anel Long NP [address] [place], [place] 8[address] Nurse Practitioner Psychiatry & Neurology Vascular Neurology 11/04/24 Angel Balbuena MD [address] [facility] [place] [place] [address] Assigned Heart and Vascular Surgical Provider 12/10/24 documented as of this encounter
--- OUTSIDE RECORDS SUMMARY | 2024-12-11 23:54 | XMS_ITS | Encounter Summary ---
Author Organization [place] Address [address] [place] [address]. [place] [address] Care Team Providers Care Dental Professional Name Role Phone Wilber Vidales MD Primary Care Provider [phone] Matt Baez MD Unavailable Wilber Vidales MD Unavailable Stephie Mahoney MD Unavailable Federica Foster RN Unavailable Tova Welch RD Unavailable [phone] Stephie Mahoney MD Unavailable Olga Garcia RN Unavailable [phone] Matt Baez MD Unavailable [phone] Junior Chavira MD Unavailable [phone] Shantel Walker MD Unavailable [phone] Junior Chavira MD Unavailable [phone] Coni Dhaliwal CNP Unavailable [phone] Anel Long NP Unavailable [phone] Angel Balbuena MD Unavailable [phone] Encounter Details Date Type Department Care Team (Late st Contact Info) Description 04/04/2021 MyC Medical Advice [facility] [address] [facility] [place] [address] [place] [address] [address] [place] [phone] Social History Tobacco Use Types Packs/Day Years [...] and Family Once a week 03/17/2019 Attends Orthodox Services More than 4 times per [...] Answer Date Recorded PHQ-2 Score 0 03/21/2021 [facility] of Occupat ional Health - Occupational Stress [...] AM CDT 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 Gender Identity Male 03/03/2019 9:24 PM CDT [...] Lab [facility] Laboratory [address] [place] [address] 12/23/2024 4:00 PM CDT Office Visit [address] [address] Cyrus Aleman MD [address] [place] [address] 01/27/2025 10:00 AM CDT Office Visit [facility] Neurology Clinic [address] [place] [phone] Anel Long, TABLE FILLER [address] [place] [address] Coni Dhaliwal, INGOT CASTER [address] [place] [address]75 04/14/2025 11:15 AM CDT Office Visit [facility] Heart [facility] [address] [place] [address] [address] [place] [phone] Inessa Esteves, [address] [place] [address] 06/05/2025 12:30 PM CDT Office Visit [facility] Endocrinology Clinic [address] [phone] Stephie Mahoney MD [address] [place] [address] 867455 11/13/2025 11:00 AM CDT Virtual Visit [facility] Endocrinology [address] [phone] Stephie Mahoney MD [address] [place] [address] 742295 documented as of this encounter Visit Diagnoses Not on filedocumented in this encounter Additional Health Concerns Infection Onset Date Last Indicated Resolved Time Rule Out COVID-19 03/10/2022 03/10/2022 03/10/2022 1:37 AM CDT COVID-19 03/10/2022 03/10/2022 03/31/2022 11:3 9 PM CDT Rule Out COVID-19 10/12/2024 10/12/2024 10/12/2024 11:31 AM FOOD SAMPLER documented as of this encounter Care Teams Dental Professional Relationship Specialty [place] [address] [place] [address] PCP - General Family Practice 11/21/16 Matt Baez MD [address] [facility] [address] [place] [address] Assigned Heart and Vascular Provider 06/11/20 06/23/22 [place] [address] [address] [place] [address] Assigned PCP 01/30/21 07/11/24 Stephie Mahoney MD [address] [place] [address] Endocrinology, Diabetes, and Metabolism 04/22/21 Federica Foster RN [address] [place] [address] Feller Operator Diabetes Education 04/22/[address] [place] [address] Feller Operator Nutrition 04/22/21 Stephie Mahoney MD [address] [place] [address] 751475 Assigned Endocrinology Provider 05/08/21 Olga Garcia RN Specialty Signal Maintainer Helper INTERNAL MEDICINE - ENDOCRINOLOGY, DIABETES & METABOLISM 09/29/22 Matt Baez MD [address] [place] [address] Assigned Heart and Vascular Provider 12/23/22 05/04/23 Junior Chavira MD [address] [place] 62[address] Cardiovascular Disease 05/29/24 [place] [address] [address] [place], [place] 3190[address] Assigned PCP 07/12/24 Junior Chavira MD [address] [place] 751225 Assigned Heart and Vascular Provider 08/11/24 Coni Dhaliwal CNP [address] [place] [address] Nurse Practitioner Psychiatry & Neurology Vascular Neurology 11/04/24 Anel Long TABLE FILLER [address] [place], [place] [address] Nurse Practitioner Psychiatry & Neurology Vascular Neurology 11/04/24 Angel Balbuena MD [address] [place], [place] [address]V[place] [place], [place] [address] Assigned Heart and Vascular Surgical Provider 12/10/24 documented as of this encounter
--- OUTSIDE RECORDS SUMMARY | 2024-12-11 23:54 | XMS_ITS | Encounter Summary ---
Author Organization [facility] Address [address] [place] [address]. [place] [address] Care Team Providers Care Conventions Assistant Name Role Phone Wilber Vidales MD Primary Care Provider [phone] Wilber Vidales MD Unavailable Matt Baez MD Unavailable [phone] Wilber Vidales MD Unavailable Wilber Vidales MD Unavailable Stephie Mahoney MD Unavailable [phone] Federica Foster RN Unavailable [phone] Unavailable [phone] Stephie Mahoney MD Unavailable [phone] Olga Garcia RN Unavailable [phone] Matt Baez MD Unavailable Junior Chavira MD Unavailable [phone] Shantel Walker MD Unavailable [phone] Junior Chavira MD Unavailable [phone] Coni Dhaliwal CNP Unavailable [phone] Anel Long NP Unavailable Angel Balbuena MD Unavailable [phone] Encounter Details Date Type Department Care Team (Late st Contact Info) Description 09/12/2019 MyC Medical Advice [facility] Heart [facility] [address] [place] [address] Matt Baez MD [address] [facility] [address] [place] 696205 Social History Tobacco Use Types Packs/Day Years [...] and Family Once a week 03/17/2019 Attends [employer] Services More than 4 times per year [...] Answer Date Recorded PHQ-2 Score 0 08/27/2018 [facility] [place] of Occupat ional Health - Occupational Stress [...] AM CDT 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 [address] [place] [phone] 12/23/2024 4:00 PM CDT Office Visit [address] [phone] Cyrus Aleman MD [address] [place] [address] 890805 01/27/2025 10:00 AM CDT Office Visit [facility] [address] [place] [address] 200 [place] [address] Anel Long, PIPE OR STEAM FITTER FURNACE INSTALLER 7949 [place], [place] 696[address] Coni Dhaliwal, HIGH SCHOOL ENGLISH TEACHER [address] [address] 04/14/2025 11:15 AM CDT Office Visit [facility] Heart [facility] [address] [place] [address] Inessa Esteves [address] [place] [address] 06/05/2025 12:30 PM CDT Office Visit [facility] Endocrinology [address] [phone] Stephie Mahoney MD [address] [place] [address] 11/13/2025 11:00 AM CDT Virtual Visit [facility] Endocrinology [address] [phone] Stephie Mahoney MD [address] [place] [address] documented as of this encounter Visit Diagnoses Not on filedocumented in this encounter Additional Health Concerns Infection Onset Date Last Indicated Resolved Time Rule Out COVID-19 03/10/2022 03/10/2022 03/10/2022 1:37 AM CDT COVID-19 03/10/2022 03/10/2022 03/31/2022 11:3 9 PM CDT Rule Out COVID-19 10/12/2024 10/12/2024 10/12/2024 11:31 AM SILK SCREEN CUTTER documented as of this encounter Care Teams Conventions Assistant Relationship Specialty [place] [address] [address] [address] PCP - General Family Practice 11/21/16 [place] [address] [address] [address] Assigned PCP 10/31/20 01/29/21 Matt Baez MD [address] [facility] [address] [place] [address] Assigned Heart and Vascular Provider 06/11/20 06/23/22 [place] [address] [place] [address] Assigned PCP 11/02/16 10/30/20 [place] [address] [place] [address] Assigned PCP 01/30/21 07/11/24 Stephie Mahoney MD [address] [place] [address] Endocrinology, Diabetes, and Metabolism 04/22/21 Federica [place] RN [address] [place] [address] Regional Environmental Manager Diabetes Education 04/22/[address] [place] [address] Regional Environmental Manager Nutrition 04/22/21 Stephie Mahoney MD [address] [place] [address] 429165 Assigned Endocrinology Provider 05/08/21 Olga Garcia RN Specialty Anesthesiologist Assistant INTERNAL MEDICINE - ENDOCRINOLOGY, DIABETES & METABOLISM 09/29/22 Matt Baez MD [address] [place] [address] Assigned Heart and Vascular Provider 12/23/22 05/04/23 Junior Chavira MD [address] [place] 083705 Cardiovascular Disease 05/29/24 [place] [address] [place], [place] 78915[address] Assigned PCP 07/12/24 Junior Chavira MD [address] [place] 475245 Assigned Heart and Vascular Provider 08/11/24 Coni Dhaliwal CNP [address] [place] 0[address]385 Nurse Practitioner Psychiatry & Neurology Vascular Neurology 11/04/24 Anel Long PIPE OR STEAM FITTER FURNACE INSTALLER [address] [place], [place] [address] Nurse Practitioner Psychiatry & Neurology Vascular Neurology 11/04/24 Angel Balbuena MD [address] [place], [place] [address], [place] 8[address] Assigned Heart and Vascular Surgical Provider 12/10/24 documented as of this encounter
--- OUTSIDE RECORDS SUMMARY | 2024-12-11 23:54 | XMS_ITS | Encounter Summary ---
Author Organization [facility] Address [address] [place] [address]. [place] [address] Care Team Providers Care Guest Room Attendant Name Role Phone Wilber Vidales MD Primary Care Provider [phone] Wilber Vidales MD Unavailable Stephie Mahoney MD Unavailable [phone] Federica Foster RN Unavailable Tova Welch [address] Unavailable [phone] Stephie Mahoney MD Unavailable [phone] Olga Garcia RN Unavailable [phone] Matt Baez MD Unavailable [phone] Junior Chavira MD Unavailable [phone] Shantel Walker MD Unavailable [phone] Junior Chavira MD Unavailable [phone] Coni Dhaliwal MACHINE OPERATOR HOP PICKER Unavailable [phone] Anel Long MANIFOLD OPERATOR Unavailable [phone] Angel Balbuena MD Unavailable [phone] Encounter Details Date Type Department Care Team (Late st Contact Info) Description 01/16/2023 [facility] [address] 4th [place] [address] Dinah Velazquez Social History Tobacco [...] do you attend [facility] or anabaptism services? More than 4 times per year [...] Answer Date Recorded PHQ-2 Score 0 09/29/2022 [facility] [place] of Occupat ional Health - Occupational Stress [...] place to sleep or slept in a fdc (including now)? No 06/27/2021 Education Answer Date Recorded What is the highest level of school you have completed or the highest degree you have received? Bachelor's degree (e.g., BA, AB, BS) 03/17/2019 Sex and Gender Information Value Date Recorded Sex Assigned at Male 06/07/2019 7:29 AM CDT 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 REHAB LIAISON Gender Identity Male 03/03/2019 9:24 PM [...] Contact Info) Description 12/17/2024 9:30 AM CDT [facility] [address] [place] [address] 12/23/2024 4:00 PM CDT Office Visit [facility] 6545 [facility] 450 [place] [phone] Cyrus Aleman MD [address] [place] [address] 01/27/2025 10:00 AM CDT Office Visit [facility] Neurology [facility] [address] [place] [address] 200 [place] [phone] Anel Long MANIFOLD OPERATOR [address] [facility] [place], [place] 14[address] Coni Dhaliwal, MACHINE OPERATOR HOP PICKER 1545 [facility] 450 [place], [place] [address]335 04/14/2025 11:15 AM CDT Office Visit [facility] Heart [facility] [address] [facility] [address] [place] [phone] Inessa Esteves DO [address]405 [facility] [address] [place], [place] [address]135 06/05/2025 12:30 PM CDT Office Visit [facility] Endocrinology Clinic [address] [phone] Stephie Mahoney MD [address] [place] [address] 725675 11/13/2025 11:00 AM CDT Virtual Visit [facility] Endocrinology Clinic [address] [phone] Stephie Mahoney MD [address] 455535 documented as of this encounter Visit Diagnoses Not on filedocumented in this encounter Additional Health Concerns Infection Onset Date Last Indicated Resolved Time Rule Out COVID-19 10/12/2024 10/12/2024 10/12/2024 11:31 AM REHAB LIAISON documented as of this encounter Care Teams Guest Room Attendant Relationship Specialty [place] [address] [address] [address] PCP - General Family Practice 11/21/16 [place] [address] [address] [address] Assigned PCP 01/30/21 07/11/24 Stephie Mahoney MD [address] [place] [address] 610675 Endocrinology, Diabetes, and Metabolism 04/22/21 Federica [place] RN 420 [place], [place] 0[address]25 Heading And Priming Tool Setter Diabetes Education 04/22/[address] [place] [address] 177534 Heading And Priming Tool Setter Nutrition 04/22/21 Stephie Mahoney MD [address] 869395 Assigned Endocrinology Provider 05/08/21 Olga Garcia, RN Specialty Supervisor Particleboard INTERNAL MEDICINE - ENDOCRINOLOGY, DIABETES & METABOLISM 09/29/22 Matt Baez MD [address] [facility] [address] [place] 953385 Assigned Heart and Vascular Provider 12/23/22 05/04/23 Junior Chavira MD [address] [place] 7[address] Cardiovascular Disease 05/29/24 [place] [address] [place] [address] Assigned PCP 07/12/24 Junior Chavira MD [address] [place] [address] Assigned Heart and Vascular Provider 08/11/24 Coni Dhaliwal CNP [address] [place] [address] Nurse Practitioner Psychiatry & Neurology Vascular Neurology 11/04/24 Anel Long NP [address] [place] [address] Nurse Practitioner Psychiatry & Neurology Vascular Neurology 11/04/24 Angel Balbuena MD [address] [place] [address] Assigned Heart and Vascular Surgical Provider 12/10/24 documented as of this encounter
--- OUTSIDE RECORDS SUMMARY | 2024-12-11 23:54 | XMS_ITS | Encounter Summary ---
Author Organization [facility] Address [address] [place] [address]. [place] [address] Care Team Providers Care Mechanical Assembly Technician Name Role Phone Wilber Vidales MD Primary Care Provider [phone] Wilber Vidales MD Unavailable Stephie Mahoney MD Unavailable [phone] Federica [place] RN Unavailable Tova Welch RD Unavailable [phone] Stephie Mahoney MD Unavailable [phone] Olga Garcia RN Unavailable [phone] Matt Baez MD Unavailable [phone] Junior Chavira MD Unavailable [phone] Shantel Walker MD Unavailable [phone] Junior Chavira MD Unavailable [phone] Coni Dhaliwal COMMUNICATIONS REPRESENTATIVE Unavailable [phone] Anel Long CONTRACT POST OFFICE CLERK Unavailable [phone] Angel Balbuena MD Unavailable [phone] Encounter Details Date Type Department Care Team (Late st Contact Info) Description 01/24/2023 MyC Medical Advice [facility] [address] [place] [phone] Matt Baez MD [address] [place] [address] Social History Tobacco Use Types Packs/Day Years [...] do you attend [facility] or amish services? More than 4 [...] Answer Date Recorded PHQ-2 Score 0 09/29/2022 [facility] of Occupat ional Health [...] place to sleep or slept in a custodial (including now)? No 06/27/2021 Education Answer Date Recorded What is the highest level of school you have completed or the highest degree you have received? 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 Gender Identity Male 03/03/2019 9:24 PM CDT [...] Info) Description 12/17/2024 9:30 AM CDT Lab [facility] [address] [place] [phone] 12/23/2024 4:00 PM CDT Office Visit [facility] [address] [place] [address] 450 [place] [phone] Cyrus Aleman MD [address] [place] [address] 01/27/2025 10:00 AM CDT Office Visit [facility] Neurology [facility] [address] [place] [address] 200 [place] [phone] Anel Long, CONTRACT POST OFFICE CLERK [address] [place], [place] [address] Coni Dhaliwal, COMMUNICATIONS REPRESENTATIVE [address] [facility] 450 [place], [place] [address] 04/14/2025 11:15 AM CDT Office Visit [facility] Heart [facility] [address] [place] [phone] Inessa Esteves DO [address] [place], [place] [address] 06/05/2025 12:30 PM CDT Office Visit [facility] Endocrinology Clinic [address] [phone] tSephie Mahoney MD [address] [place] [address] 862835 11/13/2025 11:00 AM CDT Virtual Visit [facility] Endocrinology Clinic [address] [phone] Stephie Mahoney MD [address] [place] [address] documented as of this encounter Visit Diagnoses Not on filedocumented in this encounter Additional Health Concerns Infection Onset Date Last Indicated Resolved Time Rule Out COVID-19 10/12/2024 10/12/2024 10/12/2024 11:31 AM TRADE UNION SECRETARY documented as of this encounter Care Teams Mechanical Assembly Technician Relationship Specialty [place] [address] [place] [address] PCP - General Family Practice 11/21/16 [place] [address] [facility] [address] Assigned PCP 01/30/21 07/11/24 Stephie Mahoney MD [address] [place] [address] Endocrinology, Diabetes, and Metabolism 04/22/21 Federica [place], RN [address] [place] [address] Organic Chemist Diabetes Education 04/22/[address] [place] [address] Organic Chemist Nutrition 04/22/21 Stephie Mahoney MD [address] [facility] [address] [place] [address] Assigned Endocrinology Provider 05/08/21 Olga Garcia RN Specialty Dining Service Supervisor INTERNAL MEDICINE - ENDOCRINOLOGY, DIABETES & METABOLISM 09/29/22 Matt Baez MD [address] [place] [address] Assigned Heart and Vascular Provider 12/23/22 05/04/23 Junior Chavira MD [address] [place] 2399[address] Cardiovascular Disease 05/29/24 [place] [address] [place] [address] Assigned PCP 07/12/24 Junior Chavira MD [address] [place] 436415 Assigned Heart and Vascular Provider 08/11/24 Coni Dhaliwal, COMMUNICATIONS REPRESENTATIVE [address] [place] 305985 Nurse Practitioner Psychiatry & Neurology Vascular Neurology 11/04/24 Anel Long, CONTRACT POST OFFICE CLERK [address] [place] 537675 Nurse Practitioner Psychiatry & Neurology Vascular Neurology 11/04/24 Angel Balbuena MD 9 [place] [address] Assigned Heart and Vascular Surgical Provider 12/10/24 documented as of this encounter
--- OUTSIDE RECORDS SUMMARY | 2024-12-11 23:54 | XMS_ITS | Encounter Summary ---
Author Organization [facility] Address [address] [place] [address]. [place] [address] Care Team Providers Care Customer Support Analyst Name Role Phone Wilber Vidales MD Primary Care Provider [phone] Wilber Vidales MD Unavailable Matt Baez MD Unavailable [phone] Wilber Vidales MD Unavailable Wilber Vidales MD Unavailable Stephie Mahoney MD Unavailable [phone] Federica [place] RN Unavailable [phone] Unavailable [phone] Stephie Mahoney MD Unavailable [phone] Olga Garcia RN Unavailable [phone] Matt Baez MD Unavailable Junior Chavira MD Unavailable [phone] Shantel [place] MD Unavailable [phone] Junior Chavira MD Unavailable [phone] Coni Dhaliwal CNP Unavailable [phone] Anel Long NP Unavailable [phone] Angel Balbuena MD Unavailable [phone] Encounter Details Date Type Department Care Team (Late st Contact Info) Description 05/11/2019 MyC Medical Advice [facility] Heart [facility] [address] [facility] [address] [place] [address] Nehemiah Plummer MD [address] [facility] [address] [place] [id number] Social History Tobacco Use Types Packs/Day Years [...] and Family Once a week 03/17/2019 Attends [employer] Services More than 4 times per year [...] Recorded PHQ-2 Score 0 08/27/2018 [facility] [place] of Occupat ional Health - Occupational Stress [...] AM CDT 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 [place]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 Gender Identity Male 03/03/2019 9:24 PM CDT Sexual Orientation Straight 03/03/2019 9: 24 PM CDT documented as of this encounter Plan of Treatment Upcoming Encounters Date Type Department Care Team (Late st Contact Info) Description 12/17/2024 9:30 AM CDT Lab [facility] [address] [place] [phone] 12/23/2024 4:00 PM CDT Office Visit [address] [phone] Cyrus Aleman MD [address] [place] [address] 808175 01/27/2025 10:00 AM CDT Office Visit [facility] Neurology [facility] [address] [place] [address] 200 [place] [address] Anel Long, VICE PRESIDENT [employer] [address] [place], [place] 296215 Coni Dhaliwal, INVESTIGATIVE WRITER [address] [address] 04/14/2025 11:15 AM CDT Office Visit [facility] Heart [facility] [address] [facility] [address] [place] [address] Inessa Esteves [address] [place] [address] 06/05/2025 12:30 PM CDT Office Visit [facility] Endocrinology [address] [phone] Stephie Mahoney MD [address] [place] [address] 11/13/2025 11:00 AM CDT Virtual Visit [facility] Endocrinology [address] [phone] Stephie Mahoney MD [address] [place] [address] documented as of this encounter Visit Diagnoses Not on filedocumented in this encounter Additional Health Concerns Infection Onset Date Last Indicated Resolved Time Rule Out COVID-19 03/10/2022 03/10/2022 03/10/2022 1:37 AM CDT COVID-19 03/10/2022 03/10/2022 03/31/2022 11:3 9 PM CDT Rule Out COVID-19 10/12/2024 10/12/2024 10/12/2024 11:31 AM [place] GOLD ATTENDANT documented as of this encounter Care Teams Customer Support Analyst Relationship Specialty [place] [address] [address] [address] PCP - General Family Practice 11/21/16 [place] [address] [address] [address] Assigned PCP 10/31/20 01/29/21 Matt Baez MD [address] [facility] [address] [place] [address] Assigned Heart and Vascular Provider 06/11/20 06/23/22 [place] [address] [address] Assigned PCP 11/02/16 10/30/20 [place] [address] [place] [address] Assigned PCP 01/30/21 07/11/24 Stephie Mahoney MD [address] [place] [address] Endocrinology, Diabetes, and Metabolism 04/22/21 Federica [place] RN [address] [place] [address] Water Server Diabetes Education 04/22/[address] [place] [address] Water Server Nutrition 04/22/21 Stephie Mahoney MD [address] [place] [address] 789955 Assigned Endocrinology Provider 05/08/21 Olga Garcia RN Specialty Law Firm Partner INTERNAL MEDICINE - ENDOCRINOLOGY, DIABETES & METABOLISM 09/29/22 Matt Baez MD [address] [place] [address] Assigned Heart and Vascular Provider 12/23/22 05/04/23 Junior Chavira MD [address] [place] 6[address]655 Cardiovascular Disease 05/29/24 [place] [address] [address] [place], [place] 8[address] Assigned PCP 07/12/24 Junior Chavira MD [address] [place] 8[address]75 Assigned Heart and Vascular Provider 08/11/24 Coni Dhaliwal CNP [address] [place] [address] Nurse Practitioner Psychiatry & Neurology Vascular Neurology 11/04/24 Anel Long VICE PRESIDENT [employer]CIAL BANK [address] [place], [place] [address] Nurse Practitioner Psychiatry & Neurology Vascular Neurology 11/04/24 Angel Balbuena MD [address] [place], [place] [address], [place] [address] Assigned Heart and Vascular Surgical Provider 12/10/24 documented as of this encounter
--- OUTSIDE RECORDS SUMMARY | 2024-12-11 23:54 | XMS_ITS | Encounter Summary ---
Author Organization [facility] Address [address] [place] [address]. [place] [address] Care Team Providers Care Tobacco Packer Name Role Phone Wilber Vidales MD Primary Care Provider [phone] Wilber Vidales MD Unavailable Stephie Mahoney MD Unavailable [phone] Federica Foster RN Unavailable Tova Welch RD Unavailable [phone] Stephie Mahoney MD Unavailable [phone] Olga Garcia RN Unavailable [phone] Matt Baez MD Unavailable +[phone] Junior Chavira MD Unavailable [phone] Shantel Walker MD Unavailable [phone] Junior Chavira MD Unavailable [phone] Coni Dhaliwal MANAGER INFORMATION Unavailable [phone] Anel Long BAG PATCHER Unavailable [phone] Angel Balbuena MD Unavailable [phone] Encounter Details Date Type Department Care Team (Late st Contact Info) Description 01/25/2023 MyC Medical [facility] Gastroenterology Clinic [address] 4th [place] [address] Sandra Villagomez Social History Tobacco [...] week 06/27/2021 How often do you attend [facility] or worship services? 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 Gender Identity Male 03/03/2019 9:24 PM [...] Contact Info) Description 12/17/2024 9:30 AM CDT [facility] Laboratory [address] [place] [address] 12/23/2024 4:00 PM CDT Office Visit [facility] [address] [facility] [address] [place] [phone] Cyrus Aleman MD [address] [place] [address] 01/27/2025 10:00 AM CDT Office Visit [facility] Neurology [facility] [address] [facility] [address] [place] [phone] Anel Long, BAG PATCHER [address] [place], [place] [address] Coni Dhaliwal, MANAGER INFORMATION 6545 [facility] 450 [place], [place] [address] 04/14/2025 11:15 AM CDT Office Visit [facility] Heart [facility] [address] [facility] [address] [place] [phone] Inessa Esteves DO [address] [place], [place] [address] 06/05/2025 12:30 PM CDT Office Visit [facility] Endocrinology Clinic [address] [phone] Stephie Mahoney MD [address] [place] [address] 062945 11/13/2025 11:00 AM CDT Virtual Visit [facility] Endocrinology Clinic [address] [phone] Stephie Mahoney MD [address] [phone] documented as of this encounter Visit Diagnoses Not on filedocumented in this encounter Additional Health Concerns Infection Onset Date Last Indicated Resolved Time Rule Out COVID-19 10/12/2024 10/12/2024 10/12/2024 11:31 AM HEM INSPECTOR documented as of this encounter Care Teams Tobacco Packer Relationship Specialty [place] [address] [address] [address] PCP - General Family Practice 11/21/16 [place] [address] [address] [address] Assigned PCP 01/30/21 07/11/24 Stephie Mahoney MD [address] [place] [address] 141875 Endocrinology, Diabetes, and Metabolism 04/22/21 Federica Foster RN [address] [place] [address] 323005 Uranium Processing Supervisor Diabetes Education 04/22/21 Tova Welch, RD [address] [place] [address] 311394 Uranium Processing Supervisor Nutrition 04/22/21 Stephie Mahoney MD [address] [place] [address] Assigned Endocrinology Provider 05/08/21 Olga Garcia, RN Specialty Event Sales Assistant INTERNAL MEDICINE - ENDOCRINOLOGY, DIABETES & METABOLISM 09/29/22 Matt Baez MD [address] [facility] [address] [place] 024815 Assigned Heart and Vascular Provider 12/23/22 05/04/23 Junior Chavira MD [address] [place] [id number] Cardiovascular Disease 05/29/24 [place] [address] [place] [address] Assigned PCP 07/12/24 Junior Chavira MD [address] [place] 510595 Assigned Heart and Vascular Provider 08/11/24 Coni Dhaliwal CNP [address] [place] [address] Nurse Practitioner Psychiatry & Neurology Vascular Neurology 11/04/24 Anel Long NP [address] [place] [address] Nurse Practitioner Psychiatry & Neurology Vascular Neurology 11/04/24 Angel Balbuena MD [address] [place] [address] Assigned Heart and Vascular Surgical Provider 12/10/24 documented as of this encounter
--- OUTSIDE RECORDS SUMMARY | 2024-12-11 23:54 | XMS_ITS | Encounter Summary ---
Author Organization [facility] Address [address] [place] [address]. [place] [address] Care Team Providers Care Back Shoe Cutter Name Role Phone Wilber Vidales MD Primary Care Provider [phone] Wilber Vidales MD Unavailable Matt Baez MD Unavailable [phone] Wilber Vidales MD Unavailable Wilber Vidales MD Unavailable Stephie Mahoney MD Unavailable [phone] Federica Foster RN Unavailable [phone] Unavailable [phone] Stephie Mahoney MD Unavailable [phone] Olga Garcia RN Unavailable [phone] Matt Baez MD Unavailable Junior Chavira MD Unavailable [phone] Shantel Walker MD Unavailable [phone] Junior Chavira MD Unavailable [phone] Coni Dhaliwal CNP Unavailable [phone] Anel Long NP Unavailable [phone] Angel Balbuena MD Unavailable [phone] Encounter Details Date Type Department Care Team (Late st Contact Info) Description 05/12/[address] 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 Gender Identity Male 03/03/2019 9:24 PM CDT Sexual Orientation Straight 03/03/2019 9: 24 PM CDT documented as of this encounter Plan of Treatment Upcoming Encounters Date Type Department Care Team (Late st Contact Info) Description 12/17/2024 9:30 AM CDT Lab [facility] Laboratory [address] [place] [address] 12/23/2024 4:00 PM CDT Office Visit [facility] [address] [place] [phone] Cyrus Aleman MD [address] [place] [address] 057955 01/27/2025 10:00 AM CDT Office Visit [facility] [place] [address] [place] [address] 200 [place] [phone] Aenl Long NP 4672 [place], [place] 3714[address] Coni Dhaliwal, COREY [address] [address] 04/14/2025 11:15 AM CDT Office Visit [facility] Heart [facility] [address] [facility] [address] [place] [address] Inessa Esteves DO [address] [place] [address] [place] [address] 06/05/2025 12:30 PM CDT Office Visit [facility] Endocrinology [address] [phone] Stephie Mahoney MD [address] [place] [address] 148775 11/13/2025 11:00 AM CDT Virtual Visit [facility] Endocrinology [address] [phone] Stephie Mahoney MD [address] [place] [address] 642635 documented as of this encounter Visit Diagnoses Not on filedocumented in this encounter Additional Health Concerns Infection Onset Date Last Indicated Resolved Time Rule Out COVID-19 03/10/2022 03/10/2022 03/10/2022 1:37 AM CDT COVID-19 03/10/2022 03/10/2022 03/31/2022 11:3 9 PM CDT Rule Out COVID-19 10/12/2024 10/12/2024 10/12/2024 11:31 AM MICROSOFT DYNAMICS MANAGER ARCHITECT documented as of this encounter Care Teams Back Shoe Cutter Relationship Specialty [place] [address] [address] [address] PCP - General Family Practice 11/21/16 [place] [address] [address] [address] Assigned PCP 10/31/20 01/29/21 Matt Baez MD [address] [place] [address] Assigned Heart and Vascular Provider 06/11/20 06/23/22 [place] [address] [place] [address] Assigned PCP 11/02/16 10/30/20 [place] [address] [place], [place] 1944668 Assigned PCP 01/30/21 07/11/24 Stephie Mahoney MD [address] [place] [address] Endocrinology, Diabetes, and Metabolism 04/22/21 Federica Foster RN [address] [place] [address] [phone] Cloth Shearing Supervisor Diabetes Education 04/22/[address] [place] [address] Cloth Shearing Supervisor Nutrition 04/22/21 Stephie Mahoney MD [address] [place] [address] Assigned Endocrinology Provider 05/08/21 Olga Garcia RN Specialty Machine Zipper Trimmer INTERNAL MEDICINE - ENDOCRINOLOGY, DIABETES & METABOLISM 09/29/22 Matt Baez MD [address] [place] [address] Assigned Heart and Vascular Provider 12/23/22 05/04/23 Junior Chavira MD [address] [place] 611355 Cardiovascular Disease 05/29/24 [place] [address] [place] [address] Assigned PCP 07/12/24 Junior Chavira MD [address] [place] 096385 Assigned Heart and Vascular Provider 08/11/24 Coni Dhaliwal CNP [address] [place] 817545 Nurse Practitioner Psychiatry & Neurology Vascular Neurology 11/04/24 Anel Long NP [address] [place] 669145 Nurse Practitioner Psychiatry & Neurology Vascular Neurology 11/04/24 Angel Balbuena MD [address] [place], [place] [address] [place] [address] Assigned Heart and Vascular Surgical Provider 12/10/24 documented as of this encounter
--- OUTSIDE RECORDS SUMMARY | 2024-12-11 23:54 | XMS_ITS | Encounter Summary ---
Author Organization [facility] Address [address] [place] [address]. [place] [address] Care Team Providers Care Manager Wellness Name Role Phone Wilber Vidales MD Primary Care Provider [phone] Wilber Vidales MD Unavailable Stephie Mahoney MD Unavailable [phone] Federica Foster RN Unavailable Tova Welch RD Unavailable [phone] Stephie Mahoney MD Unavailable [phone] Olga Garcia RN Unavailable [phone] Matt Baez MD Unavailable [phone] Junior Chavira MD Unavailable [phone] Shantel Walker MD Unavailable [phone] Junior Chavira MD Unavailable [phone] Coni Dhaliwal MANAGER DISASTER RECOVERY Unavailable [phone] Anel Long DEALER SALES REP Unavailable [phone] Angel Balbuena MD Unavailable [phone] Encounter Details Date Type Department Care Team (Late st Contact Info) Description 01/16/2023 [facility] Gastroenterology Clinic [address] 4th [place] [address] Dinah Velazquez Social History Tobacco [...] week 06/27/2021 How often do you attend [facility] or zoroastrian services? 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 6545 [facility] 450 [place] [phone] Cyrus Aleman MD [address] [place] [address] 01/27/2025 10:00 AM CDT Office Visit [facility] Neurology [facility] [address] [place] [address] 200 [place] [phone] Anel Long DEALER SALES REP [address] [facility] [place] [place] [place] 9209[address] Coni Dhaliwal, MANAGER DISASTER RECOVERY 4545 [facility] 450 [place], [place] 4537[address] 04/14/2025 11:15 AM CDT Office Visit [facility] Heart [facility] [address] [facility] [address] [place] [phone] Inessa Esteves DO 6405 [facility] [address] [place], [place] [address] 06/05/2025 12:30 PM CDT Office Visit [facility] Endocrinology Clinic [address] [phone] Stephie Mahoney MD [address] [place] [address] 504275 11/13/2025 11:00 AM CDT Virtual Visit [facility] Endocrinology Clinic [address] [phone] Stephie Mahoney MD [address] 979275 documented as of this encounter Visit Diagnoses Not on filedocumented in this encounter Additional Health Concerns Infection Onset Date Last Indicated Resolved Time Rule Out COVID-19 10/12/2024 10/12/2024 10/12/2024 11:31 AM MATERIAL PROCESSOR documented as of this encounter Care Teams Manager Wellness Relationship Specialty Start [place] [address] [address] [address] PCP - General Family Practice 11/21/16 [place] [address] [address] [address] Assigned PCP 01/30/21 07/11/24 Stephie Mahoney MD [address] [place] [address] 546595 Endocrinology, Diabetes, and Metabolism 04/22/21 Federica Foster RN 420 [place], [place] 979185 Stripper Shovel Operator Diabetes Education 04/22/[address] [place] [address] [phone] Stripper Shovel Operator Nutrition 04/22/21 Stephie Mahoney MD [address] 027125 Assigned Endocrinology Provider 05/08/21 Olga Garcia, RN Specialty Manager Engine INTERNAL MEDICINE - ENDOCRINOLOGY, DIABETES & METABOLISM 09/29/22 Matt Baez MD [address] [facility] [address] [place] 695245 Assigned Heart and Vascular Provider 12/23/22 05/04/23 Junior Chavira MD [address] [place] 865045 Cardiovascular Disease 05/29/24 [place] [address] [place] [address] Assigned PCP 07/12/24 Junior Chavira MD [address] [place] [address] Assigned Heart and Vascular Provider 08/11/24 Coni Dhaliwal CNP [address] [place] [address] Nurse Practitioner Psychiatry & Neurology Vascular Neurology 11/04/24 Anel Long NP [address] [place] [address] Nurse Practitioner Psychiatry & Neurology Vascular Neurology 11/04/24 Angel Balbuena MD [address] [place] [address] Assigned Heart and Vascular Surgical Provider 12/10/24 documented as of this encounter
--- OUTSIDE RECORDS SUMMARY | 2024-12-11 23:54 | XMS_ITS | Encounter Summary ---
Author Organization [facility] Address [address] [place] [address]. [place] [address] Care Team Providers Care Group President Name Role Phone Wilber Vidales MD Primary Care Provider [phone] Wilber Vidales MD Unavailable Stephie Mahoney MD Unavailable [phone] Federica Foster RN Unavailable Tova Welch RD Unavailable [phone] Stephie Mahoney MD Unavailable [phone] Olga Garcia RN Unavailable [phone] Matt Baez MD Unavailable +[phone] Junior Chavira MD Unavailable [phone] Shantel Walker MD Unavailable [phone] Junior Chavira MD Unavailable [phone] Coni Dhaliwal CIGAR MACHINE FEEDER Unavailable [phone] Anel Long URBAN SOCIOLOGIST Unavailable [phone] Angel Balbuena MD Unavailable [phone] Encounter Details Date Type Department Care Team (Late st Contact Info) Description 01/25/2023 MyC Medical [facility] Gastroenterology Clinic [address] 4th [place] [address] Sandra Villagomez Social History Tobacco [...] week 06/27/2021 How often do you attend [facility] or pentecostal services? 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 Gender Identity Male 03/03/2019 9:24 PM [...] Contact Info) Description 12/17/2024 9:30 AM CDT [facility] Laboratory [address] [place] [address] 12/23/2024 4:00 PM CDT Office Visit [facility] 6545 [facility] [address] [place] [phone] Cyrus Aleman MD [address] [place] [address] 01/27/2025 10:00 AM CDT Office Visit [facility] Neurology [facility] [address] [facility] [address] [place] [phone] Anel Long, URBAN SOCIOLOGIST [address] [place], [place] [address] Coni Dhaliwal, CIGAR MACHINE FEEDER 6545 [facility] 450 [place], [place] [address] 04/14/2025 11:15 AM CDT Office Visit [facility] Heart [facility] [address] [facility] [address] [place] [phone] Inesas Esteves DO [address] [place], [place] [address]87[address] 06/05/2025 12:30 PM CDT Office Visit [facility] Endocrinology Clinic [address] [phone] Stephie Mahoney MD [address] [place] [address] 397585 11/13/2025 11:00 AM CDT Virtual Visit [facility] Endocrinology Clinic [address] [phone] Stephie Mahoney MD [address] 450755 documented as of this encounter Visit Diagnoses Not on filedocumented in this encounter Additional Health Concerns Infection Onset Date Last Indicated Resolved Time Rule Out COVID-19 10/12/2024 10/12/2024 10/12/2024 11:31 AM CITY DIRECTOR documented as of this encounter Care Teams Group President Relationship Specialty [place] [address] [address] [address] PCP - General Family Practice 11/21/16 [place] [address] [address] [address] Assigned PCP 01/30/21 07/11/24 Stephie Mahoney MD [address] [place] [address] 324165 Endocrinology, Diabetes, and Metabolism 04/22/21 Federica Foster RN [address] [place] [address] [phone] Pediatrician Diabetes Education 04/22/21 Tova Welch, RD [address] [place] [address] 976124 Pediatrician Nutrition 04/22/21 Stephie Mahoney MD [address] [place] [address] Assigned Endocrinology Provider 05/08/21 Olga Garcia, RN Specialty Barrel Raiser Helper INTERNAL MEDICINE - ENDOCRINOLOGY, DIABETES & METABOLISM 09/29/22 Matt Baez MD [address] [facility] [address] [place] 1705[address] Assigned Heart and Vascular Provider 12/23/22 05/04/23 Junior Chavira MD [address] [place] 415035 Cardiovascular Disease 05/29/24 [place] [address] [place] [address] Assigned PCP 07/12/24 Junior Chavira MD [address] [place] 724905 Assigned Heart and Vascular Provider 08/11/24 Coni Dhaliwal CNP [address] [place] [address] Nurse Practitioner Psychiatry & Neurology Vascular Neurology 11/04/24 Anel Long NP [address] [place] [address] Nurse Practitioner Psychiatry & Neurology Vascular Neurology 11/04/24 Angel Balbuena MD [address] [place] [address] Assigned Heart and Vascular Surgical Provider 12/10/24 documented as of this encounter
--- OUTSIDE RECORDS SUMMARY | 2024-12-11 23:54 | XMS_ITS | Encounter Summary ---
Author Organization [facility] Address [address] [place] [address]. [place] [address] Care Team Providers Care Proof Press Operator Name Role Phone Wilber Vidales MD Primary Care Provider [phone] Matt Baez MD Unavailable Wilber Vidales MD Unavailable Stephie Mahoney MD Unavailable Federica Foster RN Unavailable Tova Welch RD Unavailable [phone] Stephie Mahoney MD Unavailable Olga Garcia RN Unavailable [phone] Matt Baez MD Unavailable [phone] Junior Chavira MD Unavailable [phone] Shantel Walker MD Unavailable [phone] Junior Chavira MD Unavailable [phone] Coni Dhaliwal CNP Unavailable [phone] Anel Long NP Unavailable [phone] Angel Balbuena MD Unavailable [phone] Encounter Details Date Type Department Care Team (Late st Contact Info) Description 03/21/2021 MyC Medical Advice [facility] [address] [place] [address] Juana Hernandez PA-C [facility] [address] [place] [address] Social History Tobacco Use Types Packs/Day Years [...] and Family Once a week 03/17/2019 Attends Mormonism Services More than 4 times per year [...] Answer Date Recorded PHQ-2 Score 0 03/21/2021 [facility] of Occupat ional [...] AM CDT 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 NEAR EASTERN ARCHAEOLOGY LECTURER Gender Identity Male 03/03/2019 9:24 PM CDT [...] Info) Description 12/17/2024 9:30 AM CDT Lab [facility] Laboratory [address] [place] [address] 12/23/2024 4:00 PM CDT Office Visit [place] [address] [place] [phone] Cyrus Aleman MD 908 [place], [place] 214475 01/27/2025 10:00 AM CDT Office Visit [facility] [address] [phone] Anel Long, TREE WARDEN [address] [facility] [address] [place] [address] Coni Dhaliwal, FABRICATION INSPECTOR [address] [place] [address] 04/14/2025 11:15 AM CDT Office Visit [facility] Heart [facility] [address] [facility] [address] [place] [phone] Inessa Esteves DO [address] [place] [address] 06/05/2025 12:30 PM CDT Office Visit [facility] Endocrinology [address] [phone] Stephie Mahoney MD [address] [place] [address] 134065 11/13/2025 11:00 AM CDT Virtual Visit [facility] Endocrinology [address] [phone] Stephie Mahoney MD [address] [place] [address] 110675 documented as of this encounter Visit Diagnoses Not on filedocumented in this encounter Additional Health Concerns Infection Onset Date Last Indicated Resolved Time Rule Out COVID-19 03/10/2022 03/10/2022 03/10/2022 1:37 AM CDT COVID-19 03/10/2022 03/10/2022 03/31/2022 11:3 9 PM CDT Rule Out COVID-19 10/12/2024 10/12/2024 10/12/2024 11:31 AM NEAR EASTERN ARCHAEOLOGY LECTURER documented as of this encounter Care Teams Proof Press Operator Relationship Specialty [place] [address] [place] [address] PCP - General Family Practice 11/21/16 Matt Baez MD [address] [place] [address]235 Assigned Heart and Vascular Provider 06/11/20 06/23/22 [place] [address] [place] [address] Assigned PCP 01/30/21 07/11/24 Stephie Mahoney MD [address] [place] [address] [phone] Endocrinology, Diabetes, and Metabolism 04/22/21 Federica Foster, RN [address] [place] [address] [phone] Farm General Manager Diabetes Education 04/22/[address] [place] [address] [phone] Farm General Manager Nutrition 04/22/21 Stephie Mahoney MD [address] [place] [address] 293775 Assigned Endocrinology Provider 05/08/21 Olga Garcia, RN Specialty Automated Weaver INTERNAL MEDICINE - ENDOCRINOLOGY, DIABETES & METABOLISM 09/29/22 Matt Baez MD [address] [place] 647[address] Assigned Heart and Vascular Provider 12/23/22 05/04/23 Junior Chavira MD [address] [place] 445875 Cardiovascular Disease 05/29/24 [place] [address] [place] [address] Assigned PCP 07/12/24 Junior Chavira MD [address] [place], [place] 770415 Assigned Heart and Vascular Provider 08/11/24 Coni Dhaliwal CNP [address] [place] 169015 Nurse Practitioner Psychiatry & Neurology Vascular Neurology 11/04/24 Anel Long NP [address] [place] [address] Nurse Practitioner Psychiatry & Neurology Vascular Neurology 11/04/24 Angel Balbuena MD [address] [place], [place] [address] Assigned Heart and Vascular Surgical Provider 12/10/24 documented as of this encounter
--- OUTSIDE RECORDS SUMMARY | 2024-12-11 23:54 | XMS_ITS | Encounter Summary ---
Author Organization [facility] Address [address] [place] [address]. [place] [address] Care Team Providers Care Insole Taper Name Role Phone Wilber Vidales MD Primary Care Provider [phone] Wilber Vidales MD Unavailable Wilber Vidales MD Unavailable Matt Baez MD Unavailable [phone] Wilber Vidales MD Unavailable Wilber Vidales MD Unavailable Stephie Mahoney MD Unavailable [phone] Federica Foster RN Unavailable [phone] Unavailable [phone] Stephie Mahoney MD Unavailable [phone] Olga Garcia RN Unavailable [phone] Matt Baez MD Unavailable [phone] Junior Chavira MD Unavailable [phone] Shantel Walker MD Unavailable [phone] Junior Chavira MD Unavailable [phone] Coni Dhaliwal CNP Unavailable [phone] Darbyblanca Anel Barry MONTANEZ Unavailable [phone] Angel Balbuena MD Unavailable [phone] Reason for Visit * Reason Onset Date Comments Medication Request 08/15/2018 Sildenafil 50 mg Encounter Details Date Type Department Care Team (Late st Contact Info) Description 08/15/2018 MyC Medical Advice [address], [address] [place] [address] [place] [address] [place], [place] [phone] Medication Request (Sildenafil 50mg) Social History Tobacco Use Types Packs/Day Years Used Date Smoking Tobacco: Never Smokeless Tobacco: Never Alcohol Use Standard Drinks/Week Comments Yes 0 (1 standard drink = 0.6 oz pur e alcohol) 2/week Sex and Gender Information Value Date Recorded Sex Assigned at Male 06/07/2019 7:29 AM CDT 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 Bustos SHELVER documented in this encounter Plan of Treatment Upcoming Encounters Date Type Department Care Team (Late st Contact Info) Description 12/17/2024 9:30 AM CDT Lab [facility] Laboratory [address] [place] [address] 12/23/2024 4:00 PM CDT Office Visit [address] [place] [phone] Cyrus Aleman MD 909 [place], [place] [phone] 01/27/2025 10:00 AM CDT Office Visit [facility] Neurology Clinic [address] [place] [phone] Anel Long, ARCHIVIST [employer] [address] [place] [address] Coni Dhaliwal, HHA [address] [place] [address] 04/14/2025 11:15 AM CDT Office Visit [facility] Heart [facility] [address] [facility] [address] [place] [phone] Inessa Esteves DO [address] [place] [address] 06/05/2025 12:30 PM CDT Office Visit [facility] Endocrinology [address] [phone] Stephie Mahoney MD [address] [place] [address] 223695 11/13/2025 11:00 AM CDT Virtual Visit [facility] Endocrinology [address] [phone] Stephie Mahoeny MD [address] [place] [address] 685275 documented as of this encounter Visit Diagnoses Diagnosis Erectile dysfunction, unspecified erectile dysfunction type documented in this encounter Additional Health Concerns Infection Onset Date Last Indicated Resolved Time Rule Out COVID-19 03/10/2022 03/10/2022 03/10/2022 1:37 AM CDT COVID-19 03/10/2022 03/10/2022 03/31/2022 11:3 9 PM CDT Rule Out COVID10/12/2024 10/12/2024 10/12/2024 11:31 AM BOOK SHELVER documented as of this encounter Care Teams Insole Taper Relationship Specialty [place] [address] [place] [address] PCP - General Family Practice 11/21/16 [place] [address] [place] [address] PCP - Assigned PCP 11/02/16 10/22/18 [place] [address] [place] [address] Assigned PCP 10/31/20 01/29/21 Matt Baez MD [address] [place] [address] Assigned Heart and Vascular Provider 06/11/20 06/23/22 [place] [address] [place] [address] Assigned PCP 11/02/16 10/30/20 [place] [address] [address] [address] Assigned PCP 01/30/21 07/11/24 Stephie Mahoney MD [address] [place] [address] Endocrinology, Diabetes, and Metabolism 04/22/21 Federica Foster, RN 420 [place] [address] Automotive Services Manager Diabetes Education 04/22/[address] [place], [place] 155014 Automotive Services Manager Nutrition 04/22/21 Stephie Mahoney MD 420 [facility] 101 [place], [place] 749435 Assigned Endocrinology Provider 05/08/21 Olga Garcia, RN Specialty Social Service Manager INTERNAL MEDICINE - ENDOCRINOLOGY, DIABETES & METABOLISM 09/29/22 Matt Baez MD [address] [place], [place] 8[address] Assigned Heart and Vascular Provider 12/23/22 05/04/23 Junior Chavira MD [address] [place], [place] 9[address] Cardiovascular Disease 05/29/24 [place] [address] [address] [place], [place] 9016344 Assigned PCP 07/12/24 Junior Chavira MD [address] [place], [place] 274565 Assigned Heart and Vascular Provider 08/11/24 Coni Dhaliwal, HHA [address] [place], [place] 244[address] Nurse Practitioner Psychiatry & Neurology Vascular Neurology 11/04/24 Anel Long, ARCHIVIST [employer] FOUNDATION 6545 [facility] [place] [address] Nurse Practitioner Psychiatry & Neurology Vascular Neurology 11/04/24 Angel Balbuena MD [address] [place] [address] Assigned Heart and Vascular Surgical Provider 12/10/24 documented as of this encounter
--- OUTSIDE RECORDS SUMMARY | 2024-12-11 23:54 | XMS_ITS | Encounter Summary ---
Author Organization [employer] Address [address] [place] [address]. [place] [address] Care Team Providers Care Biomedical Engineer Name Role Phone Wilber Vidales MD Primary Care Provider [phone] Matt Baez MD Unavailable Wilber Vidales MD Unavailable Stephie Mahoney MD Unavailable Federica Foster RN Unavailable Tova Welch RD Unavailable [phone] Stephie Mahoney MD Unavailable Olga Garcia RN Unavailable [phone] Matt Baez MD Unavailable [phone] Junior Chavira MD Unavailable [phone] Shantel Walker MD Unavailable [phone] Junior Chavira MD Unavailable [phone] Coni Dhaliwal CNP Unavailable [phone] Anel Long NP Unavailable [phone] Angel Balbuena MD Unavailable [phone] Encounter Details Date Type Department Care Team (Late st Contact Info) Description 05/11/2021 MyC Medical Advice [facility] Diabetes Education [address] [place] [address] Federica Foster, RN [address] [place] [address] Social History Tobacco Use Types Packs/Day Years [...] and Family Once a week 03/17/2019 Attends Anabaptist Services More than 4 times per year [...] Answer Date Recorded PHQ-2 Score 0 03/21/2021 [facility] of Occupat ional Health - Occupational Stress [...] AM CDT 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 [address] [place] [phone] Anel Long, SEWAGE TREATMENT PLANT OPERATOR [address] [place], [place] 858015 Coni Dhaliwal, HVAC INSTALLER [address] [place] [address] 04/14/2025 11:15 AM CDT Office Visit [facility] Heart [facility] [address] [facility] [address] [place] [phone] YungjeromyEliazarInessa DO Shantel [address] [place] [address] 06/05/2025 12:30 PM CDT Office Visit [facility] Endocrinology [address] [phone] Stephie Mahoney MD [address] [place] [address] 020685 11/13/2025 11:00 AM CDT Virtual Visit [facility] Endocrinology [address] [phone] Stephie Mahoney MD [address] [place] [address] 083675 documented as of this encounter Visit Diagnoses Not on filedocumented in this encounter Additional Health Concerns Infection Onset Date Last Indicated Resolved Time Rule Out COVID-19 03/10/2022 03/10/2022 03/10/2022 1:37 AM CDT COVID-19 03/10/2022 03/10/2022 03/31/2022 11:3 9 PM CDT Rule Out COVID-19 10/12/2024 10/12/2024 10/12/2024 11:31 AM ADMINISTRATIVE PROCESSOR documented as of this encounter Care Teams Biomedical Engineer Relationship Specialty [place] [address] [place] [address] PCP - General Family Practice 11/21/16 Matt Baez MD [address] [place] [address]105 Assigned Heart and Vascular Provider 06/11/20 06/23/22 [place] [address] [place] [address] Assigned PCP 01/30/21 07/11/24 Stephie Mahoney MD [address] [phone] Endocrinology, Diabetes, and Metabolism 04/22/21 Federica Foster RN 420 [place] [address] Broomcorn Press Feeder Diabetes Education 04/22/[address] [place] [address] [employer]roomcorn Press Feeder Nutrition 04/22/21 Stephie Mahoney MD [address] [place] [address] Assigned Endocrinology Provider 05/08/21 Olga Garcia, RN Specialty District Sales Coordinator INTERNAL MEDICINE - ENDOCRINOLOGY, DIABETES & METABOLISM 09/29/22 Matt Baez MD [address] [place] [address] Assigned Heart and Vascular Provider 12/23/22 05/04/23 Junior Chavira MD [address] [place] [address] Cardiovascular Disease 05/29/24 [place] [address] [place] [address] Assigned PCP 07/12/24 Junior Chavira MD [address] [place] [address] Assigned Heart and Vascular Provider 08/11/24 Coni Dhaliwal, COREY [address] [place] 789115 Nurse Practitioner Psychiatry & Neurology Vascular Neurology 11/04/24 Anel Long NP [address] [place] [address] Nurse Practitioner Psychiatry & Neurology Vascular Neurology 11/04/24 Angel Balbuena MD [address] [place], [place] [address] Assigned Heart and Vascular Surgical Provider 12/10/24 documented as of this encounter
--- OUTSIDE RECORDS SUMMARY | 2024-12-11 23:54 | XMS_ITS | Encounter Summary ---
Author Organization [facility] Address [address] [place] [address]. [place] [address] Care Team Providers Care Historian Research Assistant Name Role Phone Wilber Vidales MD Primary Care Provider [phone] Wilber Vidales MD Unavailable Matt Baez MD Unavailable [phone] Wilber Vidales MD Unavailable Wilber Vidales MD Unavailable Stephie Mahoney MD Unavailable [phone] Federica Foster RN Unavailable [phone] Unavailable [phone] Stephie Mahoney MD Unavailable [phone] Olga Garcia RN Unavailable [phone] Matt Baez MD Unavailable Junior Chavira MD Unavailable [phone] Shantel Walker MD Unavailable [phone] Junior Chavira MD Unavailable [phone] Coni Dhaliwal CNP Unavailable [phone] Anel Long NP Unavailable [phone] Angel Balbuena MD Unavailable [phone] Encounter Details Date Type Department Care Team (Late st Contact Info) Description 08/19/2019 MyC Medical Advice [facility] Heart Clinic [place] 6405 [facility] [address] [place] [address] Ivonne Hussein, ASHOK WEIGHTER [address]00 [place] [address] Social History Tobacco Use Types Packs/Day Years [...] Answer Date Recorded PHQ-2 Score 0 08/27/2018 [facility] of Occupat ional Health - Occupational Stress [...] CDT 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 Laboratory [address] [place] [phone] 12/23/2024 4:00 PM CDT Office Visit [facility] [address] [place] [address] [phone] Cyrus Aleman MD [address] [place] [address] 989245 01/27/2025 10:00 AM CDT Office Visit [facility] Neurology [address] [place] [address] Anel Long, SPRAY APPLICATOR [address] [place], [place] 726475 Coni Dhaliwal, WEIGHTER [address] [address] 04/14/2025 11:15 AM CDT Office Visit [facility] Heart [facility] [address] [facility] [address] [place] [address] Inessa Esteves DO [address] [place] [address] 06/05/2025 12:30 PM CDT Office Visit [facility] Endocrinology [address] [phone] Stephie Mahoney MD [address] [place] [address] 11/13/2025 11:00 AM CDT Virtual Visit [facility] Endocrinology [address] [phone] Stephie Mahoney MD [address] [place] [address] 873075 documented as of this encounter Visit Diagnoses Not on filedocumented in this encounter Additional Health Concerns Infection Onset Date Last Indicated Resolved Time Rule Out COVID-19 03/10/2022 03/10/2022 03/10/2022 1:37 AM CDT COVID-19 03/10/2022 03/10/2022 03/31/2022 11:3 9 PM CDT Rule Out COVID-19 10/12/2024 10/12/2024 10/12/2024 11:31 AM MANAGER COMMUNITY RELATIONS documented as of this encounter Care Teams Historian Research Assistant Relationship Specialty [place] [address] [address] [address] PCP - General Family Practice 11/21/16 [place] [address] [address] [address] Assigned PCP 10/31/20 01/29/21 Matt Baez MD [address] [facility] [address] [place] [address] Assigned Heart and Vascular Provider 06/11/20 06/23/22 [place] [address] [place] [address] Assigned PCP 11/02/16 10/30/20 [place] [address] [place] [address] Assigned PCP 01/30/21 07/11/24 Stephie Mahoney MD [address] [place] [address] Endocrinology, Diabetes, and Metabolism 04/22/21 Federica Foster RN [address] [place] [address] Instructor Psychiatric Aide Diabetes Education 04/22/[address] [place] [address] Instructor Psychiatric Aide Nutrition 04/22/21 Stephie Mahoney MD [address] [place] [address] Assigned Endocrinology Provider 05/08/21 Olga Garcia RN Specialty Track Laborer INTERNAL MEDICINE - ENDOCRINOLOGY, DIABETES & METABOLISM 09/29/22 Matt Baez MD [address] [place], [place] [address] Assigned Heart and Vascular Provider 12/23/22 05/04/23 Junior Chavira MD [address] [place] 7[address] Cardiovascular Disease 05/29/24 [place] [address] [place], [place] 70197[address] Assigned PCP 07/12/24 Junior Chavira MD [address] [place] [phone] Assigned Heart and Vascular Provider 08/11/24 Coni Dhaliwal, COREY [address] [place], [place] [address] Nurse Practitioner Psychiatry & Neurology Vascular Neurology 11/04/24 Anel Long NP [address] [place], [place] 94[address] Nurse Practitioner Psychiatry & Neurology Vascular Neurology 11/04/24 Angel Balbuena MD [address] [place], [place] [address] [place], [place] [address] Assigned Heart and Vascular Surgical Provider 12/10/24 documented as of this encounter
--- OUTSIDE RECORDS SUMMARY | 2024-12-11 23:54 | XMS_ITS | Encounter Summary ---
Author Organization [facility] Address [address] [place] [address]. [place] [address] Care Team Providers Care Mexican Food Cook Name Role Phone Wilber Vidales MD Primary Care Provider [phone] Wilber Vidales MD Unavailable Matt Baez MD Unavailable [phone] Wilber Vidales MD Unavailable Wilber Vidales MD Unavailable Stephie Mahoney MD Unavailable [phone] Federica Foster RN Unavailable [phone] Unavailable [phone] Stephie Mahoney MD Unavailable [phone] Olga Garcia RN Unavailable [phone] Matt Baez MD Unavailable Junior Chavira MD Unavailable [phone] Shantel Walker MD Unavailable [phone] Junior Chavira MD Unavailable [phone] Coni Dhaliwal CNP Unavailable [phone] Anel Long NP Unavailable [phone] Angel Balbuena MD Unavailable [phone] Encounter Details Date Type Department Care Team (Late st Contact Info) Description 09/11/2019 MyC Medical Advice [facility] Heart [facility] [address] [facility] [address] [place] [address] Matt Baez MD [address] [facility] [address] [place] [id number] Social History Tobacco Use Types Packs/Day Years [...] and Family Once a week 03/17/2019 Attends Hindu Services More than 4 times per year [...] Answer Date Recorded PHQ-2 Score 0 08/27/2018 [facility] [place] of Occupat ional Health - Occupational Stress [...] AM CDT 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 Gender Identity Male 03/03/2019 9:24 PM CDT Sexual Orientation Straight 03/03/2019 9: 24 PM CDT documented as of this encounter Plan of Treatment Upcoming Encounters Date Type Department Care Team (Late st Contact Info) Description 12/17/2024 9:30 AM CDT Lab [facility] Laboratory [address] [place] [phone] 12/23/2024 4:00 PM CDT Office Visit [address] [phone] Cyrus Aleman MD [address] [place] [address]115 01/27/2025 10:00 AM CDT Office Visit [facility] Neurology [facility] [address] [place] [address] 200 [place] [address] Anel Long, DIGITAL STRATEGY SPECIALIST 9482 [place], [place] [address] Coni Dhaliwal, FIELD ARTILLERY OFFICER [address] [address] 04/14/2025 11:15 AM CDT Office Visit [facility] Heart [facility] [address] [facility] [address] [place] [address] Inessa Esteves [address] [place] [address] 06/05/2025 12:30 PM CDT Office Visit [facility] Endocrinology [address] [phone] Stephie Mahoney MD [address] [place] [address] 11/13/2025 11:00 AM CDT Virtual Visit [facility] Endocrinology [address] [phone] Stephie Mahoney MD [address] [place] [address] documented as of this encounter Visit Diagnoses Not on filedocumented in this encounter Additional Health Concerns Infection Onset Date Last Indicated Resolved Time Rule Out COVID-19 03/10/2022 03/10/2022 03/10/2022 1:37 AM CDT COVID-19 03/10/2022 03/10/2022 03/31/2022 11:3 9 PM CDT Rule Out COVID-19 10/12/2024 10/12/2024 10/12/2024 11:31 AM VALUE STREAM MANAGER documented as of this encounter Care Teams Mexican Food Cook Relationship Specialty [place] [address] [address] [address] PCP - General Family Practice 11/21/16 [place] [address] [address] [address] Assigned PCP 10/31/20 01/29/21 aMtt Baez MD [address] [facility] [address] [place] [address] Assigned Heart and Vascular Provider 06/11/20 06/23/22 [place] [address] [address] [place] [address] Assigned PCP 11/02/16 10/30/20 [place] [address] [place] [address] Assigned PCP 01/30/21 07/11/24 Stephie Mahoney MD [address] [place] [address] Endocrinology, Diabetes, and Metabolism 04/22/21 Federica Foster RN [address] [place] [address] Contact Center Assistant Diabetes Education 04/22/[address] [place] [address] Contact Center Assistant Nutrition 04/22/21 Stephie Mahoney MD [address] [place] [address] 390115 Assigned Endocrinology Provider 05/08/21 Olga Garcia RN Specialty Environmental Marketing Representative INTERNAL MEDICINE - ENDOCRINOLOGY, DIABETES & METABOLISM 09/29/22 Matt Baez MD [address] [place] [address] Assigned Heart and Vascular Provider 12/23/22 05/04/23 Junior Chavira MD [address] [place] 244975 Cardiovascular Disease 05/29/24 [place] [address] [place], [place] 7320[address] Assigned PCP 07/12/24 Junior Chavira MD [address] [place] 4[address] Assigned Heart and Vascular Provider 08/11/24 Coni Dhaliwal CNP [address] [place] [address] Nurse Practitioner Psychiatry & Neurology Vascular Neurology 11/04/24 Anel Long DIGITAL STRATEGY SPECIALIST [address] [place], [place] [address] Nurse Practitioner Psychiatry & Neurology Vascular Neurology 11/04/24 Angel Balbuena MD [address] [place], [place] [address], [place] [address] Assigned Heart and Vascular Surgical Provider 12/10/24 documented as of this encounter
--- OUTSIDE RECORDS SUMMARY | 2024-12-11 23:54 | XMS_ITS | Encounter Summary ---
Author Organization [facility] Address [address] [place] [address]. [place] [address] Care Team Providers Care Lease Analyst Name Role Phone Wilber Vidales MD Primary Care Provider [phone] Matt Baez MD Unavailable Wilber Vidales MD Unavailable Stephie Mahoney MD Unavailable Federica Foster RN Unavailable Tova Welch RD Unavailable [phone] Stephie Mahoney MD Unavailable Olag Garcia RN Unavailable [phone] Matt Baez MD Unavailable [phone] Junior Chavira MD Unavailable [phone] Shantel Walker MD Unavailable [phone] Junior Chavira MD Unavailable [phone] Coni Dhaliwal CNP Unavailable [phone] Anel Long NP Unavailable [phone] Angel Balbuena MD Unavailable [phone] Encounter Details Date Type Department Care Team (Late st Contact Info) Description 05/09/2021 MyC Medical Advice [facility] Diabetes Education [place] [address] [facility] [address] 3rd [place] [address] Tova Welch, RD [address] [place] [address] Social History Tobacco Use Types Packs/Day Years [...] and Family Once a week 03/17/2019 Attends Quaker Services More than 4 times per year [...] Answer Date Recorded PHQ-2 Score 0 03/21/2021 [facility] [place] of Occupat ional Health - Occupational Stress [...] AM CDT 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 Gender Identity Male 03/03/2019 9:24 PM [...] CDT Lab [facility] Laboratory [address] [place] [address] 12/23/2024 4:00 PM CDT Office Visit [address] [phone] Cyrus Aleman MD [address] [place] [address] 587525 01/27/2025 10:00 AM CDT Office Visit [facility] Neurology [facility] [address] [place] [phone] Anel Long, NURSE ADVOCATE [address]448 [place], [place] 031965 Coni Dhaliwal, MEDICAL ASSEMBLY [address] [place] [address] 04/14/2025 11:15 AM CDT Office Visit [facility] Heart [facility] [address] [facility] [address] [place] [address] YungjeromyEliazarInessa DO Shantel [address] [place] [address] 06/05/2025 12:30 PM CDT Office Visit [facility] Endocrinology [address] [phone] Stephie Mahoney MD [address] [place] [address] 012245 11/13/2025 11:00 AM CDT Virtual Visit [facility] Endocrinology [address] [phone] Stephie Mahoney MD [address] [place] [address] 304085 documented as of this encounter Visit Diagnoses Not on filedocumented in this encounter Additional Health Concerns Infection Onset Date Last Indicated Resolved Time Rule Out COVID-19 03/10/2022 03/10/2022 03/10/2022 1:37 AM CDT COVID-19 03/10/2022 03/10/2022 03/31/2022 11:3 9 PM CDT Rule Out COVID-19 10/12/2024 10/12/2024 10/12/2024 11:31 AM LIGHT RAIL VEHICLE OPERATOR documented as of this encounter Care Teams Lease Analyst Relationship Specialty [place] [address] [place] [address] PCP - General Family Practice 11/21/16 Matt Baez MD [address] [place] [address]227[address] Assigned Heart and Vascular Provider 06/11/20 06/23/22 [place] [address] [place] [address] Assigned PCP 01/30/21 07/11/24 Stephie Mahoney MD [address] [phone] Endocrinology, Diabetes, and Metabolism 04/22/21 Federica Foster RN 420 [place] [address] Mechanical Operator Diabetes Education 04/22/[address] [place] [address] Mechanical Operator Nutrition 04/22/21 Stephie Mahoney MD [address] [place] [address] Assigned Endocrinology Provider 05/08/21 Olga Garcia, RN Specialty Well Service Pump Equipment Operator INTERNAL MEDICINE - ENDOCRINOLOGY, DIABETES & METABOLISM 09/29/22 Matt Baez MD [address] [place] [address] Assigned Heart and Vascular Provider 12/23/22 05/04/23 Junior Chavira MD [address] [place] [address] Cardiovascular Disease 05/29/24 [place] [address] [place] [address] Assigned PCP 07/12/24 Junior Chavira MD [address] [place] [address] Assigned Heart and Vascular Provider 08/11/24 Coni Dhaliwal, COREY [address] [place] 898495 Nurse Practitioner Psychiatry & Neurology Vascular Neurology 11/04/24 Anel Long NP [address] [place] 660225 Nurse Practitioner Psychiatry & Neurology Vascular Neurology 11/04/24 Angel Balbuena MD [address] [place], [place] [address] Assigned Heart and Vascular Surgical Provider 12/10/24 documented as of this encounter
--- OUTSIDE RECORDS SUMMARY | 2024-12-11 23:54 | XMS_ITS | Encounter Summary ---
Author Organization [facility] Address [address] [place] [address]. [place] [address] Care Team Providers Care Seat Cover Maker Name Role Phone Wibler Vidales MD Primary Care Provider [phone] Wilber Vidales MD Unavailable Matt Baez MD Unavailable [phone] Wilber Vidales MD Unavailable Wilber Vidales MD Unavailable Stephie Mahoney MD Unavailable [phone] Federica Foster RN Unavailable [phone] Unavailable [phone] Stephie Mahoney MD Unavailable [phone] Olga Garcia RN Unavailable [phone] Matt Baez MD Unavailable Junior Chavira MD Unavailable [phone] Shantel Walker MD Unavailable [phone] Junior Chavira MD Unavailable [phone] Coni Dhaliwal CNP Unavailable [phone] Anel Long NP Unavailable Angel Balbuena MD Unavailable [phone] Encounter Details Date Type Department Care Team (Late st Contact Info) Description 05/01/2019 MyC Medical Advice [facility] Heart [facility] [address] [facility] [address] [place] [address] Nehemiah Plummer MD [address] [place] [id number] Social History Tobacco Use Types Packs/Day Years [...] Date Recorded PHQ-2 Score 0 08/27/2018 [facility] [place] of Occupat ional Health - Occupational Stress [...] AM CDT 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 Gender Identity Male 03/03/2019 9:24 PM CDT Sexual Orientation Straight 03/03/2019 9: 24 PM CDT documented as of this encounter Plan of Treatment Upcoming Encounters Date Type Department Care Team (Late st Contact Info) Description 12/17/2024 9:30 AM CDT Lab [facility] Laboratory [address] [place] [phone] 12/23/2024 4:00 PM CDT Office Visit [address] [phone] Cyrus Aleman MD [address] [place] [address] 250915 01/27/2025 10:00 AM CDT Office Visit [facility] Neurology [facility] [address] [place] [address] 200 [place] [address] Anel Long, MANAGER EMPLOYMENT 2556 [place], [place] 8847[address] Coni Dhaliwal, PARKS RECREATION DIRECTOR [address] [address] 04/14/2025 11:15 AM CDT Office Visit [facility] Heart [facility] [address] [facility] [address] [place] [address] Inessa Esteves [address] [place] [address] 06/05/2025 12:30 PM CDT Office Visit [facility] Endocrinology [address] [phone] Stephie Mahoney MD [address] [place] [address] 11/13/2025 11:00 AM CDT Virtual Visit [facility] Endocrinology [address] [phone] Stephie Mahoney MD [address] [place] [address] documented as of this encounter Visit Diagnoses Not on filedocumented in this encounter Additional Health Concerns Infection Onset Date Last Indicated Resolved Time Rule Out COVID-19 03/10/2022 03/10/2022 03/10/2022 1:37 AM CDT COVID-19 03/10/2022 03/10/2022 03/31/2022 11:3 9 PM CDT Rule Out COVID-19 10/12/2024 10/12/2024 10/12/2024 11:31 AM COMMUTER PILOT documented as of this encounter Care Teams Seat Cover Maker Relationship Specialty [place] [address] [address] [address] PCP - General Family Practice 11/21/16 [place] [address] [address] [address] Assigned PCP 10/31/20 01/29/21 Matt Baez MD [address] [place] [address] Assigned Heart and Vascular Provider 06/11/20 06/23/22 [place] [address] [address] [place] [address] Assigned PCP 11/02/16 10/30/20 [place] [address] [place] [address] Assigned PCP 01/30/21 07/11/24 Stephie Mahoney MD [address] [place] [address] Endocrinology, Diabetes, and Metabolism 04/22/21 Federica Foster RN [address] [place] [address] Roller Inspector And Mender Diabetes Education 04/22/[address] [place] [address] Roller Inspector And Mender Nutrition 04/22/21 Stephie Mahoney MD [address] [place] [address] 643185 Assigned Endocrinology Provider 05/08/21 Olga Garcia RN Specialty Hospice Bereavement Coordinator INTERNAL MEDICINE - ENDOCRINOLOGY, DIABETES & METABOLISM 09/29/22 Matt Baez MD [address] [place] [address] Assigned Heart and Vascular Provider 12/23/22 05/04/23 Junior Chavira MD [address] [place] 361395 Cardiovascular Disease 05/29/24 [place] [address] [place], [place] 46440[address] Assigned PCP 07/12/24 Junior Chavira MD [address] [place] [address] Assigned Heart and Vascular Provider 08/11/24 Coni Dhaliwal CNP [address] [place] [address]35 Nurse Practitioner Psychiatry & Neurology Vascular Neurology 11/04/24 nAel Long MANAGER EMPLOYMENT [address] [place], [place] 506775 Nurse Practitioner Psychiatry & Neurology Vascular Neurology 11/04/24 Angel Balbuena MD [address] [place], [place] [address]V[place], [place] 2[address] Assigned Heart and Vascular Surgical Provider 12/10/24 documented as of this encounter
--- OUTSIDE RECORDS SUMMARY | 2024-12-11 23:54 | XMS_ITS | Encounter Summary ---
Author Organization [facility] Address [address] [place] [address]. [place] [address] Care Team Providers Care Manager Bench Name Role Phone Wilber Vidales MD Primary Care Provider [phone] Wilber Vidales MD Unavailable Matt Baez MD Unavailable [phone] Wilber Vidales MD Unavailable Wilber Vidales MD Unavailable Stephie Mahoney MD Unavailable [phone] Federica Foster RN Unavailable [phone] Unavailable [phone] Stephie Mahoney MD Unavailable [phone] Olga Garcia RN Unavailable [phone] Matt Baez MD Unavailable Junior Chavira MD Unavailable [phone] Shantel Walker MD Unavailable [phone] Junior Chavira MD Unavailable [phone] Coni Dhaliwal CNP Unavailable [phone] Anel Long NP Unavailable [phone] Angel Balbuena MD Unavailable [phone] Encounter Details Date Type Department Care Team (Late st Contact Info) Description 05/02/2019 MyC Medical Advice [facility] [place] [address] [facility] [address] [place] [address] Juan Wu MD [address] [facility] [address] [place] [address] Social History [...] and Family Once a week 03/17/2019 Attends Jehovah'S Witness Services More than 4 times per year [...] Answer Date Recorded PHQ-2 Score 0 08/27/2018 [facility] of Occupat ional Health - Occupational Stress [...] AM CDT 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 Laboratory [address] [place] [phone] 12/23/2024 4:00 PM CDT Office Visit [facility] [address] [place] [address] [phone] Cyrus Aleman MD [address] [place] [address] 272145 01/27/2025 10:00 AM CDT Office Visit [facility] Neurology [address] [place] [address] Anel Long, UNLOADER 7275 [place], [place] [address] Coni Dhaliwal, COREY [address] [address] 04/14/2025 11:15 AM CDT Office Visit [facility] [address] [facility] [address] [place] [address] Inessa Esteves [address] [place] [address] 06/05/2025 12:30 PM CDT Office Visit [facility] Endocrinology [address] [phone] Stephie Mahoney MD [address] [place] [place] [address] 11/13/2025 11:00 AM CDT Virtual Visit [facility] Endocrinology [address] [phone] Stephie Mahoney MD [address] [place] [place] [address] 466355 documented as of this encounter Visit Diagnoses Not on filedocumented in this encounter Additional Health Concerns Infection Onset Date Last Indicated Resolved Time Rule Out COVID-19 03/10/2022 03/10/2022 03/10/2022 1:37 AM CDT COVID-19 03/10/2022 03/10/2022 03/31/2022 11:3 9 PM CDT Rule Out COVID-19 10/12/2024 10/12/2024 10/12/2024 11:31 AM RECONSTRUCTIVE SURGEON documented as of this encounter Care Teams Manager Bench Relationship Specialty [place] [address] [address] [address] PCP - General Family Practice 11/21/16 [place] [address] [address] [address] Assigned PCP 10/31/20 01/29/21 Matt Baez MD [address] [email or web address] [address] [place] [address] Assigned Heart and Vascular Provider 06/11/20 06/23/22 [place] [address] [place] [address] Assigned PCP 11/02/16 10/30/20 [place] [address] [place] [address] Assigned PCP 01/30/21 07/11/24 Stephie Mahoney MD [address] [place] [address] Endocrinology, Diabetes, and Metabolism 04/22/21 Federica Foster, RN [address] [place] [address] Sugar Cane Farm Manager Diabetes Education 04/22/[address] [place] [address] Sugar Cane Farm Manager Nutrition 04/22/21 Stephie Mahoney MD [address] [place] [place] [address] Assigned Endocrinology Provider 05/08/21 Olga Garcia RN Specialty Carbonation Tester INTERNAL MEDICINE - ENDOCRINOLOGY, DIABETES & METABOLISM 09/29/22 Matt Baez MD [address] [place], [place] [address] Assigned Heart and Vascular Provider 12/23/22 05/04/23 Junior Chavira MD [address] [place] 24[address]35 Cardiovascular Disease 05/29/24 [place] [address] [address] [place], [place] 6[address] Assigned PCP 07/12/24 Junior Chavira MD [address] [place] 892435 Assigned Heart and Vascular Provider 08/11/24 Coni Dhaliwal, COREY [address] [place] [address]75 Nurse Practitioner Psychiatry & Neurology Vascular Neurology 11/04/24 Anel Long NP [address] [place], [place] [address] Nurse Practitioner Psychiatry & Neurology Vascular Neurology 11/04/24 Angel Balbuena MD 909 [facility] [place] [place] [address] Assigned Heart and Vascular Surgical Provider 12/10/24 documented as of this encounter
--- OUTSIDE RECORDS SUMMARY | 2024-12-11 23:55 | XMS_ITS | Encounter Summary ---
Author Organization [facility] Address [address] [place] [address]. [place] [address] Care Team Providers Care Black Pickler Name Role Phone Wilber Vidales MD Primary Care Provider [phone] Stephie Mahoney MD Unavailable [phone] Federica Foster RN Unavailable [phone] Unavailable [phone] Stephie Mahoney MD Unavailable [phone] Olga Garcia RN Unavailable [phone] Junior Chavira MD Unavailable [phone] Shantel Walker MD Unavailable [phone] Junior Chavira MD Unavailable [phone] Coni Dhaliwal OVERHEAD CRANE OPERATOR Unavailable [phone] Anel Long NP Unavailable [phone] Angel Balbuena MD Unavailable [phone] Encounter Details Date Type Department Care Team (Late st Contact Info) Description 08/04/2024 [facility] [place] [id number] [facility] 3rd [place] [address] Olga Garcia RN Social History [...] any clubs o r organizations such as mosque groups, unions, fraternal or athletic groups, or [...] Date Recorded PHQ-2 Score 0 11/23/2023 [facility]ational Stress Questionnaire Answer [...] CDT 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 [address] [place] [address] 12/23/2024 4:00 PM CDT Office Visit [facility] [address] [facility] 450 [place] [phone] Cyrus Aleman MD [address] [place] [address] 01/27/2025 10:00 AM CDT Office Visit [facility] [place] [address] [facility] 200 [place] [phone] Anel Long, LARGE ENGINE ASSEMBLER 6228 [place], [place] 0[address] Coni Dhaliwal, OVERHEAD CRANE OPERATOR [address] [facility] [address] [place], [place] [address] 04/14/2025 11:15 AM CDT Office Visit [facility] [address] [facility] [address] [place] [phone] Inessa Esteves DO [address] [facility] [address] [place], [place] [address] 06/05/2025 12:30 PM CDT Office Visit [facility] [address] [phone] Stephie Mahoney MD [address] 662775 11/13/2025 11:00 AM CDT Virtual Visit [facility] [address] [phone] Stephie Mahoney MD [address] [id number] documented as of this encounter Visit Diagnoses Not on filedocumented in this encounter Additional Health Concerns Infection Onset Date Last Indicated Resolved Time Rule Out COVID-19 10/12/2024 10/12/2024 10/12/2024 11:31 AM SENIOR ACCOUNT EXECUTIVE documented as of this encounter Care Teams Black Pickler Relationship Specialty [place] [address] [place] [address] PCP - General Family Practice 11/21/16 Stephie Mahoney MD [address] [place] [address] 276885 Endocrinology, Diabetes, and Metabolism 04/22/21 Federica Foster RN [address] [place] [address] [phone] Sales Service Supervisor Diabetes Education 04/22/[address] [place] [address] 466154 Sales Service Supervisor Nutrition 04/22/21 Stephie Mahoney MD [address] [place] [address] 475115 Assigned Endocrinology Provider 05/08/21 Olga Garcia, RN Specialty Sales Promoter INTERNAL MEDICINE - ENDOCRINOLOGY, DIABETES & METABOLISM 09/29/22 Junior Chavira MD [address] [place] [address] Cardiovascular Disease 05/29/24 [place] [address] [place] [address] Assigned PCP 07/12/24 Junior Chavira MD [address] [place] 188845 Assigned Heart and Vascular Provider 08/11/24 Coni Dhaliwal, OVERHEAD CRANE OPERATOR [address] [place] 878325 Nurse Practitioner Psychiatry & Neurology Vascular Neurology 11/04/24 Anel Long NP [address] 149795 Nurse Practitioner Psychiatry & Neurology Vascular Neurology 11/04/24 Angel Balbuena MD [address] [place], [place] 848[address] Assigned Heart and Vascular Surgical Provider 12/10/24 documented as of this encounter
--- OUTSIDE RECORDS SUMMARY | 2024-12-11 23:55 | XMS_ITS | Encounter Summary ---
Author Organization [facility] Address [address] [place] [address]. [place] [address] Care Team Providers Care Diamond Selector Name Role Phone Wilber Vidales MD Primary Care Provider [phone] Stephie Mahoney MD Unavailable [phone] Federica Foster RN Unavailable [phone] Unavailable [phone] Stephie Mahoney MD Unavailable [phone] Olga Garcia RN Unavailable [phone] Junior Chavira MD Unavailable [phone] Shantel Walker MD Unavailable [phone] Junior Chavira MD Unavailable [phone] Coni Dhaliwal CNP Unavailable [phone] Anel Long NP Unavailable Angel Balbuena MD Unavailable [phone] Encounter Details Date Type Department Care Team (Late st Contact Info) Description 08/19/2024 [facility] Endocrinology Clinic [place] [address] [facility] 3rd [place] [address] Dinah Velazquez Social History Tobacco [...] How often do you attend chur or anabaptism services? 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 [address] [place] [phone] Anel Long, ECONOMETRICS PROFESSOR [address] [place] [phone] Coni Dhaliwal, COMMUTER TRAIN OPERATOR [address] [place] [address] 04/14/2025 11:15 AM CDT Office Visit [facility] Heart [facility] [address] [facility] [address] [place] [phone] Inessa Esteves DO [address] [place], [place] [address] 06/05/2025 12:30 PM CDT Office Visit [facility] [address] [address] Stephie Mahoney MD [address] [place] [address] 830735 11/13/2025 11:00 AM CDT Virtual Visit [facility] [address] [phone] Stephie Mahoney MD [address] [place] [address] [phone] documented as of this encounter Visit Diagnoses Not on filedocumented in this encounter Additional Health Concerns Infection Onset Date Last Indicated Resolved Time Rule Out COVID-19 10/12/2024 10/12/2024 10/12/2024 11:31 AM FINANCIAL ANALYST INTERN documented as of this encounter Care Teams Diamond Selector Relationship Specialty [place] [address] [place] [address] PCP - General Family Practice 11/21/16 Stephie Mahoney MD [address] 435[address] Endocrinology, Diabetes, and Metabolism 04/22/21 Federica Foster, RN 420 [place], [place] 4[address] Dictaphone Operator Diabetes Education 04/22/[address] [place] [address] 473934 Dictaphone Operator Nutrition 04/22/21 Stephie Mahoney MD [address] [place] [address] 813805 Assigned Endocrinology Provider 05/08/21 Olga Garcia, RN Specialty User Experience Researcher INTERNAL MEDICINE - ENDOCRINOLOGY, DIABETES & METABOLISM 09/29/22 Junior Chavira MD [address] [place] [address] Cardiovascular Disease 05/29/24 [place] [address] [place] [address] Assigned PCP 07/12/24 Junior Chavira MD [address] [place] [address] Assigned Heart and Vascular Provider 08/11/24 Coni Dhaliwal, COMMUTER TRAIN OPERATOR [address] [place] [address] Nurse Practitioner Psychiatry & Neurology Vascular Neurology 11/04/24 Anel Long NP [address] [place] [address] Nurse Practitioner Psychiatry & Neurology Vascular Neurology 11/04/24 Angel Balbuena MD 909 [facility] [place] [address] Assigned Heart and Vascular Surgical Provider 12/10/24 documented as of this encounter
--- OUTSIDE RECORDS SUMMARY | 2024-12-11 23:55 | XMS_ITS | Encounter Summary ---
Author Organization [facility] Address [address] [place] [address]. [place] [address] Care Team Providers Care Country Printer Name Role Phone Wilber Vidales MD Primary [...] Unavailable [phone] Anel Long NP Unavailable [phone] Angel Balbuena MD Unavailable [phone] Encounter Details Date Type Department Care Team (Late st Contact Info) Description 07/31/2019 My[facility] Medical Advice [facility] Cardiothoracic [address] [place] [address] Ej Haines MD [address] [facility] [address] [place] [address] Social History Tobacco Use Types [...] and Family Once a week 03/17/2019 Attends Sabianism Services More than 4 times per year [...] Answer Date Recorded PHQ-2 Score 0 08/27/2018 [facility] [place] [facility] Occupat ional Health - Occupational Stress [...] AM CDT 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 SHAREPOINT ANALYST Gender Identity Male 03/03/2019 9:24 PM CDT Sexual Orientation Straight 03/03/2019 9: 24 PM CDT documented as of this encounter Plan of Treatment Upcoming Encounters Date Type Department Care Team (Late st Contact Info) Description 12/17/2024 9:30 AM CDT Lab [facility] [address] [place] [phone] 12/23/2024 4:00 PM CDT Office Visit [address] [phone] Cyrus Aleman MD [address] [place] [address] 350655 01/27/2025 10:00 AM CDT Office Visit [facility] Neurology [address] [place] [phone] Anel Long, PASTRY DECORATOR 5543 [place], [place] [address] Coni Dhaliwal, COREY [address] 468245 04/14/2025 11:15 AM CDT Office Visit [facility] Heart [facility] [address] [facility] [address] [place] [phone] LeroyreesevannesaEliazarInessasergio FunesDO [address] [place] [address] 06/05/2025 12:30 PM CDT Office Visit [facility] Endocrinology [address] [place] [phone] Stephie Mahoney MD [address] [place] [address] 135135 11/13/2025 11:00 AM CDT Virtual Visit [facility] Endocrinology [address] [phone] Stephie Mahoney MD [address] [place] [address] 390075 documented as of this encounter Visit Diagnoses Not on filedocumented in this encounter Additional Health Concerns Infection Onset Date Last Indicated Resolved Time Rule Out COVID-19 03/10/2022 03/10/2022 03/10/2022 1:37 AM CDT COVID-19 03/10/2022 03/10/2022 03/31/2022 11:3 9 PM CDT Rule Out COVID-19 10/12/2024 10/12/2024 10/12/2024 11:31 AM SHAREPOINT ANALYST documented as of this encounter Care Teams Country Printer Relationship Specialty [place] [address] [address] [place] [address] PCP - General Family Practice 11/21/16 [place] [address] [address] [address] Assigned PCP 10/31/20 01/29/21 Matt Baez MD [address] [facility] [address] [place] [address] Assigned Heart and Vascular Provider 06/11/20 06/23/22 [place] [address] [place] [address] Assigned PCP 11/02/16 10/30/20 [place] [address] [place] [address] Assigned PCP 01/30/21 07/11/24 Stephie Mahoney MD [address] [place] [address] Endocrinology, Diabetes, and Metabolism 04/22/21 Federica Foster RN [address] [place] [address] Asbestos Microscopist Diabetes Education 04/22/[address] [place] [address] Asbestos Microscopist Nutrition 04/22/21 Stephie Mahoney MD [address] [place] [address] Assigned Endocrinology Provider 05/08/21 Olga Garcia RN Specialty Profiling Machine Set Up Operator INTERNAL MEDICINE - ENDOCRINOLOGY, DIABETES & METABOLISM 09/29/22 Matt Baez MD [address] [place] [address] Assigned Heart and Vascular Provider 12/23/22 05/04/23 Junior Chavira MD [address] [place] [phone] Cardiovascular Disease 05/29/24 [place] [address] [address] [place] [address] Assigned PCP 07/12/24 Junior Chavira MD [address] [place] [address] Assigned Heart and Vascular Provider 08/11/24 Coni Dhaliwal CNP [address] [place] [address] Nurse Practitioner Psychiatry & Neurology Vascular Neurology 11/04/24 Anel Long NP [address] [place] [address] Nurse Practitioner Psychiatry & Neurology Vascular Neurology 11/04/24 Angel Balbuena MD [address] [facility] [place], [place] [address] Assigned Heart and Vascular Surgical Provider 12/10/24 documented as of this encounter
--- OUTSIDE RECORDS SUMMARY | 2024-12-11 23:55 | XMS_ITS | Clinical Summary ---
Author Organization [employer] Address [address] [place] [address] Care Team Providers Care Pharmacy Technician Name Role Phone Lisandra Osborne MD, Ty Primary Care Provider [phone] Allergies Active Allergy Reactions Criticality Noted Date Comments Phenytoin Other - Describe In Comment Field,Rash Low 10/06/2015 high fever Fever Procarbazine Rash Low 11/21/2016 Sulfa (Sulfonamide Antibiotics) Rash Low 11/21/2016 Sulfamethoxazole Rash Low 10/06/2015 Medications ELIQUIS 5 mg tablet Take 1 tablet (5 mg) by mouth 2 times daily 1 Active aspirin chewable 81 mg chewable tablet Take 81 mg by mouth. 0 Active atorvastatin (LIPITOR) 40 mg tablet Take 40 mg by mouth. 0 Active carvediloL (COREG) 12.5 mg tablet Take 1 tablet (12.5 mg) by mouth 2 times daily (with meals) 1 Active lisinopriL (PRINIVIL; ZESTRIL) 5 mg tablet Take 1 tablet (5 mg) by mouth 2 times daily 1 Active zaleplon (SONATA) 10 mg capsule TAKE 1 CAPSULE BY MOUTH AT BEDTIME NEEDED FOR MIDDLE OF THE NIGHT AWAKENINGS. DO NOT DOSE AFTER 3 AM 0 Active modafiniL (PROVIGIL) 200 mg tablet TAKE ONE TO TWO TABLETS BY MOUTH EVERY MORNING NEEDED 1 Active lamoTRIgine (LAMICTAL) 200 mg tablet Take 200 mg by mouth 2 times daily. 1 Active lamoTRIgine (LAMICTAL) 100 mg tablet TAKE 1 TABLET BY MOUTH TWICE DAILY (WITH THE 200MG TABLETS) 1 Active HYDROcodone-ac etaminophen (NORCO) 5-325 mg per tabletIndicati ons:Contusion of left knee, initial encounter Take 1-2 Tablets by mouth 2 times daily Or take as bedtime, Max acetaminophen dose: 4000 mg in 24 hrs. 12 Tablet 1 Active predniSONE (DELTASONE) 10 mg tabletIndicati ons:Contusion of right eyelid, initial encounter,Pain and swelling of knee, left Take 1 Tablet by mouth once daily with a meal. Take 3 tabs daily with food for 2 days, then 2 tablets daily for 2 days, and then 1 tablet daily for 2 days. 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 Gender Identity Not on file Sexual Orientation Not on file Obstetrics History Last Filed Vital Signs Vital Sign Reading Time Taken Comments Blood Pressure 126/78 11/01/2020 8:46 AM CDT Pulse 70 11/01/2020 8:46 AM CDT Temperature 36.9 C (98.4 F) 11/01/2020 8:46 AM CDT Respiratory Rate 18 11/01/2020 8:46 AM CDT [...] age 15-65 1977 Hepatitis C screening for age 18-79 1980 Colonoscopy through age 75 01/01/2008 Lipids for age 45-75 01/01/2008 Pneumococcal series for age 50+ (1 of 1 - PCV) 2012 Zoster (shingles) series for age 50+ (2 of 3) 07/30/2017 06/04/2017 BMI (ht and wt on same day) for age 18+ 11/01/2021 11/01/2020 COVID-19 vaccine series ( - season) 2024 Influenza Vaccine (Season Ended) 2025 07/01/2020, 06/07/2012, 07/16/1995 Tetanus booster 03/08/2028 03/08/2018, 07/16/1995 RSV vaccine for adults or pr egnancy (1 - 1-dose 75+ series) 2037 Tdap Completed 03/08/2018 Procedures Procedure Name Priority Date/Time Associated Diagnosis Comments CBC WITH AUTO DIFFERENTIAL Routine 09/23/2024 12:38 PM ELECTRICAL HARDWARE ENGINEER Encounter for therapeutic drug level monitoring Localization-relate d (focal) (partial) symptomatic epilepsy and epileptic syndromes with complex partial seizures, intractable, with status epilepticus (HC) LAMOTRIGINE (LAMICTAL) Routine 09/23/2024 12:38 PM ELECTRICAL HARDWARE ENGINEER Encounter for therapeutic drug level monitoring Localization-relate d (focal) (partial) symptomatic epilepsy and epileptic syndromes with complex partial seizures, intractable, with status epilepticus (HC) CBC WITH AUTO DIFFERENTIAL Routine 09/23/2024 12:38 PM ELECTRICAL HARDWARE ENGINEER Encounter for therapeutic drug level monitoring Localization-relate d (focal) (partial) symptomatic epilepsy and epileptic syndromes with complex partial seizures, intractable, with status epilepticus (HC) BASIC METABOLIC PANEL Routine 09/23/2024 12:38 PM ELECTRICAL HARDWARE ENGINEER Encounter for therapeutic drug level monitoring Localization-relate d (focal) (partial) symptomatic epilepsy and epileptic syndromes with complex partial seizures, intractable, with status epilepticus (HC) AST (SGOT) Routine 09/23/2024 12:38 PM ELECTRICAL HARDWARE ENGINEER Encounter for therapeutic drug level monitoring Localization-relate d (focal) (partial) symptomatic epilepsy and epileptic syndromes with complex partial seizures, intractable, with status epilepticus (HC) from Last 3 Months Results * (ABNORMAL) CBC WITH AUTO DIFFERENTIAL (09/23/2024 12:38 PM ELECTRICAL HARDWARE ENGINEER) WHITE BLOOD COUNT 4.9 4.5 - 11.0 thou/cu mm 09/23/2024 12:49 PM ELECTRICAL HARDWARE ENGINEER [facility] RED BLOOD COUNT 4.79 4.30 - 5.90 mil/cu mm 09/23/2024 12:49 PM [facility] HEMOGLOBIN 14.5 13.5 - 17.5 g/dL 09/23/2024 12:49 PM [facility] HEMATOCRIT 41.6 37.0 - 53.0 % 09/23/2024 12:49 PM [facility] MCV 87 80 - 100 fL 09/23/2024 12:49 PM [facility] MCH 30.3 26.0 - 34.0 pg 09/23/2024 12:49 PM [facility] MCHC 34.9 32.0 - 36.0 g/dL 09/23/2024 12:49 PM [facility] RDW 11.9 11.5 - 15.5 % 09/23/2024 12:49 PM [facility] PLATELET COUNT 160 140 - 440 thou/cu mm 09/23/2024 12:49 PM [facility] MPV 11.0 6.5 - 11.0 fL 09/23/2024 12:49 PM [facility] % NEUT 52.2 % 09/23/2024 12:49 PM ELECTRICAL HARDWARE ENGINEER [facility] % LYMPH 28.7 % 09/23/2024 12:49 PM ELECTRICAL HARDWARE ENGINEER [facility] % MONO 7.2 % 09/23/2024 12:49 PM ELECTRICAL HARDWARE ENGINEER [facility] % EOS 11.5 % 09/23/2024 12:49 PM ELECTRICAL HARDWARE ENGINEER [facility] % BASO 0.4 % 09/23/2024 12:49 PM ELECTRICAL HARDWARE ENGINEER [facility] ABSOLUTE NEUTROPHILS 2.5 1.7 - 7.0 thou/cu mm 09/23/2024 12:49 PM ELECTRICAL HARDWARE ENGINEER [facility] ABSOLUTE LYMPHOCYTES 1.4 0.9 - 2.9 thou/cu mm 09/23/2024 12:49 PM ELECTRICAL HARDWARE ENGINEER [facility] ABSOLUTE MONOCYTES 0.4 <0.9 thou/cu mm 09/23/2024 12:49 PM ELECTRICAL HARDWARE ENGINEER [facility] ABSOLUTE EOSINOPHILS 0.6(H) <0.5 thou/cu mm 09/23/2024 12:49 PM ELECTRICAL HARDWARE ENGINEER [facility] ABSOLUTE BASOPHILS 0.0 <0.3 thou/cu mm 09/23/2024 12:49 PM ELECTRICAL HARDWARE ENGINEER [facility] Blood BLOOD SPECIMEN / Unknown Venipuncture / Unknown 09/23/2024 12:38 PM ELECTRICAL HARDWARE ENGINEER 09/23/2024 12:38 PM ELECTRICAL HARDWARE ENGINEER Chris Phan [facility] HEMATOLOGY Final Re sult [facility] [address] [place] [address] * LAMOTRIGINE (LAMICTAL) (09/23/2024 12:38 PM ELECTRICAL HARDWARE ENGINEER) Pathologist [facility] LAMOTRIGINE 7.1 3.0 - 15.0 ug/mL 09/23/2024 3:43 PM ELECTRICAL HARDWARE ENGINEER [facility] Blood BLOOD SPECIMEN / Unknown Venipuncture / Unknown 09/23/2024 12:38 PM ELECTRICAL HARDWARE ENGINEER 09/23/2024 12:38 PM ELECTRICAL HARDWARE ENGINEER Narrative [facility] - 09/23/2024 3:43 PM ELECTRICAL HARDWARE ENGINEER The target steady state range for seizure control is 3-15 ug/mL. Concentrations that exceed 15 ug/mL may contribute to adverse effects.Patient response varies widely, particularly with co-medications and/or compromised renal function. Chris Phan [facility] SEND OUTS Final Re sult [facility] [address] [place] [address], * AST (SGOT) (09/23/2024 12:38 PM ELECTRICAL HARDWARE ENGINEER) AST (SGOT) 20 10 - 50 IU/L 09/23/2024 1:02 PM ELECTRICAL HARDWARE ENGINEER [facility] Blood BLOOD SPECIMEN / Unknown Venipuncture / Unknown 09/23/2024 12:38 PM ELECTRICAL HARDWARE ENGINEER 09/23/2024 12:38 PM ELECTRICAL HARDWARE ENGINEER Chris Whitfield kimber [facility] CHEMISTRY Final Re sult Performing Organization Address [facility] Co de Phone Number [facility] [address] [place] [address] * (ABNORMAL) BASIC METABOLIC PANEL (09/23/2024 12:38 PM ELECTRICAL HARDWARE ENGINEER) SODIUM 137 136 - 145 mmol/L 09/23/2024 1:02 PM ELECTRICAL HARDWARE ENGINEER [facility] POTASSIUM 4.1 3.5 - 5.1 mmol/L 09/23/2024 1:02 PM [facility] CHLORIDE 97(L) 98 - 107 mmol/L 09/23/2024 1:02 PM ELECTRICAL HARDWARE ENGINEER [facility] CO2,TOTAL 33(H) 22 - 29 mmol/L 09/23/2024 1:02 PM ELECTRICAL HARDWARE ENGINEER [facility] ANION GAP 7 5 - 18 09/23/2024 1:02 PM ELECTRICAL HARDWARE ENGINEER [facility] GLUCOSE 95 70 - 99 mg/dL 09/23/2024 1:02 PM ELECTRICAL HARDWARE ENGINEER [facility] CALCIUM 9.0 8.8 - 10.4 mg/dL 09/23/2024 1:02 PM ELECTRICAL HARDWARE ENGINEER [facility] Comment: Reference ranges for this test were updated on 06/24/2024 to reflect our healthy population more accurately. Reference range changes are not retroactively applied to results, but previous results using the same methodology can be interpreted in the context of the new reference range. BUN 18 8 - 23 mg/dL 09/23/2024 1:02 PM [facility] CREATININE 0.80 0.70 - 1.20 mg/dL 09/23/2024 1:02 PM [facility] BUN/CREAT RATIO 23(H) 10 - 20 1:02 PM [facility] eGFR >90 >90 mL/min/1.7 3m2 09/23/2024 1:02 PM [facility] Comment:As of 2021, eG FR is calculated by the CKD-EPI creatinine equation without race adjustment. eGFR can be influenced by muscle mass, exercise, and diet. The reported eGFR is an estimation only and is only applicable if the renal function is stable. Blood BLOOD SPECIMEN / Unknown Venipuncture / Unknown 09/23/2024 12:38 PM ELECTRICAL HARDWARE ENGINEER 09/23/2024 12:38 PM ELECTRICAL HARDWARE ENGINEER Chris Phan [facility] CHEMISTRY Final Re sult [facility] [address] [place] [address] from Last 3 Months Insurance [facility] Care Teams Pharmacy Technician Relationship Specialty [place] [address] [place] [address] PCP - General 07/23/05
--- OUTSIDE RECORDS SUMMARY | 2024-12-11 23:55 | XMS_ITS | Encounter Summary ---
Author Organization [facility] Address [address] [place] [address]. [place] [address] Care Team Providers Care Accounting Machine Mechanic Name Role Phone Wilber Vidales MD Primary Care Provider [phone] Matt Baez MD Unavailable Wilber Vidaels MD Unavailable Stephie Mahoney MD Unavailable Federica Foster RN Unavailable Tova Welch RD Unavailable [phone] Stephie Mahoney MD Unavailable Olga Garcia RN Unavailable [phone] Matt Baez MD Unavailable [phone] Junior Chavira MD Unavailable [phone] Shantel Walker MD Unavailable [phone] Junior Chavira MD Unavailable [phone] Coni Dhaliwal CNP Unavailable [phone] Anel Long NP Unavailable [phone] Angel Balbuena MD Unavailable [phone] Encounter Details Date Type Department Care Team (Late st Contact Info) Description 05/16/2022 MyC Medical Advice [facility] Endocrinology Clinic [place] [id number] [facility] [address] [place] [address] Stephie Mahoney MD [address] [facility] [address] [place] [address] Social History Tobacco Use Types Packs/Day Years [...] 06/27/2021 How often do you attend [facility] or [facility] services? 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 MANAGER Gender Identity Male 03/03/2019 9:24 PM [...] 9:30 AM CDT Lab [facility] [address] [place] [phone] 12/23/2024 4:00 PM CDT Office Visit [facility] [address] [facility] [address] [place] [phone] Cyrus Aleman MD [address] [place] [address] [id number] 01/27/2025 10:00 AM CDT Office Visit [facility] Neurology [facility] [address] [place] [address] [address] [place] [address] Anel Long, CLERK CASHIER [address] [place], [place] [address] Coni Dhaliwal, APPEALS COORDINATOR [address] [facility] [address] [place], [place] [address] 04/14/2025 11:15 AM CDT Office Visit [facility] Heart [facility] [address] [facility] [address] [place] [phone] Inessa Esteves, [address] [place], [place] [address] 06/05/2025 12:30 PM CDT Office Visit [facility] Endocrinology [address] [phone] Stephie Mahoney MD [address] [place] [address] [address] [place] [address] 11/13/2025 11:00 AM CDT Virtual Visit [facility] Endocrinology [address] [place] [address] [place] [phone] Stephie Mahoney MD [address] [id number] documented as of this encounter Visit Diagnoses Not on filedocumented in this encounter Additional Health Concerns Infection Onset Date Last Indicated Resolved Time Rule Out COVID-19 10/12/2024 10/12/2024 10/12/2024 11:31 AM ANALYTICS MANAGER documented as of this encounter Care Teams Accounting Machine Mechanic Relationship Specialty [place] [address] [place] [address] PCP - General Family Practice 11/21/16 Matt Baez MD [address] [place] [address] Assigned Heart and Vascular Provider 06/11/20 06/23/22 [place] [address] [place] [address] Assigned PCP 01/30/21 07/11/24 Stephie Mahoney MD [address] [place] [address] Endocrinology, Diabetes, and Metabolism 04/22/21 Federica Foster, RN [address] [place] [address] 782115 Survey Chief Diabetes Education 04/22/21 Tova Welch, RD [address] [place] [address] Survey Chief Nutrition 04/22/21 Stephie Mahoney MD [address] [facility] [address] [place], [place] 7[address] Assigned Endocrinology Provider 05/08/21 Olga Garcia, RN Specialty Potato Chip Fryer INTERNAL MEDICINE - ENDOCRINOLOGY, DIABETES & METABOLISM 09/29/22 Matt Baez MD [address] [place], [place] [address] Assigned Heart and Vascular Provider 12/23/22 05/04/23 Junior Chavira MD [address] [place] [address] Cardiovascular Disease 05/29/24 [place] [address] [place] [address] Assigned PCP 07/12/24 Junior Chavira MD [address] [place] 290[address] Assigned Heart and Vascular Provider 08/11/24 Coni Dhaliwal, APPEALS COORDINATOR [address] [place] [address] Nurse Practitioner Psychiatry & Neurology Vascular Neurology 11/04/24 Anel Long NP [address] [place] 5647[address] Nurse Practitioner Psychiatry & Neurology Vascular Neurology 11/04/24 Angel Balbuena MD [address] [place] [place], [place] [address] Assigned Heart and Vascular Surgical Provider 12/10/24 documented as of this encounter
--- OUTSIDE RECORDS SUMMARY | 2024-12-11 23:55 | XMS_ITS | Encounter Summary ---
Author Organization [place] Address [address] [place] [address]. [place] [address] Care Team Providers Care Slide Forming Machine Tender Name Role Phone Wilber Vidales MD Primary Care Provider [phone] Wilber Vidales MD Unavailable Matt Baez MD Unavailable [phone] Wilber Vidales MD Unavailable Wilber Vidales MD Unavailable Stephie Mahoney MD Unavailable [phone] Federica Foster RN Unavailable [phone] Unavailable [phone] Stephie Mahoney MD Unavailable [phone] Olga Garcia RN Unavailable [phone] Matt Baez MD Unavailable Junior Chavira MD Unavailable [phone] Shantel Walker MD Unavailable [phone] Junior Chavira MD Unavailable [phone] Coni Dhaliwal CNP Unavailable [phone] Anel Long NP Unavailable [phone] nAgel Balbuena MD Unavailable [phone] Encounter Details Date Type Department Care Team (Late st Contact Info) Description 07/16/2019 MyC Medical Advice [facility] Cardiothoracic [address] [place] [phone] Ej Haines MD [address] [facility] [address] [place] [address] Social History Tobacco Use Types [...] Answer Date Recorded PHQ-2 Score 0 08/27/2018 [facility] [place] of Occupat ional Health - Occupational Stress [...] AM CDT 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 Gender Identity Male 03/03/2019 9:24 PM CDT Sexual Orientation Straight 03/03/2019 9: 24 PM CDT documented as of this encounter Plan of Treatment Upcoming Encounters Date Type Department Care Team (Late st Contact Info) Description 12/17/2024 9:30 AM CDT Lab [facility] [address] [place] [phone] 12/23/2024 4:00 PM CDT Office Visit [address] [phone] Cyrus Aleman MD [address] [place] [address] [phone] 01/27/2025 10:00 AM CDT Office Visit [facility] Neurology [address] [place] [phone] Anel Long, ASSISTANT PROFESSOR OF DIETETICS [address] [place], [place] [address] Coni Dhaliwal, COREY [address] [address]29[address] 04/14/2025 11:15 AM CDT Office Visit [facility] [address] [facility] [address] [place] [phone] LeroyreesevannesaEliazarInessasergio FunesDO [address] [place] [address] 06/05/2025 12:30 PM CDT Office Visit [facility] Endocrinology [address] [place] [phone] Stephie Mahoney MD [address] [place] [address] 8469[address] 11/13/2025 11:00 AM CDT Virtual Visit [facility] Endocrinology [address] [phone] Stephie Mahoney MD [address] [place] [address] [phone] documented as of this encounter Visit Diagnoses Not on filedocumented in this encounter Additional Health Concerns Infection Onset Date Last Indicated Resolved Time Rule Out COVID-19 03/10/2022 03/10/2022 03/10/2022 1:37 AM CDT COVID-19 03/10/2022 03/10/2022 03/31/2022 11:3 9 PM CDT Rule Out COVID-19 10/12/2024 10/12/2024 10/12/2024 11:31 AM HEAD PORTER BAGGAGE documented as of this encounter Care Teams Slide Forming Machine Tender Relationship Specialty [place] [address] [place] [address] PCP - General Family Practice 11/21/16 [place] [address] [place] [address] Assigned PCP 10/31/20 01/29/21 Matt Baez MD [address] [facility] [address] [place] [address] Assigned Heart and Vascular Provider 06/11/20 06/23/22 [place] [address] [place] [address] Assigned PCP 11/02/16 10/30/20 [place] [address] [place] [address] Assigned PCP 01/30/21 07/11/24 Stephie Mahoney MD [address] [place] [address] Endocrinology, Diabetes, and Metabolism 04/22/21 Federica Foster RN [address] [place] [address] Greens Picker Diabetes Education 04/22/[address] [place] [address] Greens Picker Nutrition 04/22/21 Stephie Mahoney MD [address] [place] [address] Assigned Endocrinology Provider 05/08/21 Olga Garcia RN Specialty Bond Writer INTERNAL MEDICINE - ENDOCRINOLOGY, DIABETES & METABOLISM 09/29/22 Matt Baez MD [address] [place] [address] Assigned Heart and Vascular Provider 12/23/22 05/04/23 Junior Chavira MD [address] [place] [address] Cardiovascular Disease 05/29/24 [place] [address] [place] [address] Assigned PCP 07/12/24 Junior Chavira MD [address] [place] [address] Assigned Heart and Vascular Provider 08/11/24 Coni Dhaliwal CNP [address] [place] [address] Nurse Practitioner Psychiatry & Neurology Vascular Neurology 11/04/24 Anel Long NP [address] [place] [address] Nurse Practitioner Psychiatry & Neurology Vascular Neurology 11/04/24 Angel Balbuena MD [address] [facility] [place] [place] [address] Assigned Heart and Vascular Surgical Provider 12/10/24 documented as of this encounter
--- OUTSIDE RECORDS SUMMARY | 2024-12-11 23:55 | XMS_ITS | Encounter Summary ---
Author Organization [place] Address [address] [place] [address]. [place] [address] Care Team Providers Care Director Internal Control Name Role Phone Wilber Vidales MD Primary Care Provider [phone] Wilber Vidales MD Unavailable Stephie Mahoney MD Unavailable [phone] Federica Foster RN Unavailable Tova Welch RD Unavailable [phone] Stephie Mahoney MD Unavailable [phone] Olga Garcia RN Unavailable [phone] Matt Baez MD Unavailable [phone] Junior Chavira MD Unavailable [phone] Shantel Walker MD Unavailable [phone] Junior Chavira MD Unavailable [phone] Coni Dhaliwal SPECIAL EQUIPMENT TECHNICIAN Unavailable [phone] Anel Long JOURNEYMAN POWER PLANT OPERATOR Unavailable [phone] Angel Balbuena MD Unavailable [phone] Encounter Details Date Type Department Care Team (Late st Contact Info) Description 10/11/2022 MyC Medical [facility] Endocrinology Clinic [address] 3rd [place] [address] Stephie Mahoney MD [address] [facility] 101 [place], [place] [address] Social History Tobacco Use Types Packs/Day Years [...] 06/27/2021 How often do you attend [facility] or holiness services? More than 4 times per year 06/27/2021 Do you belong to any clubs o r organizations such as anabaptism groups, unions, fraternal or athletic groups, or [...] Answer Date Recorded PHQ-2 Score 0 09/29/2022 [facility] of Occupat ional [...] AM CDT Legal Sex Male 3:40 AM CHARGE LPN Gender Identity Male 03/03/2019 9:24 PM CDT Sexual Orientation Straight 03/03/2019 9: 24 PM CDT COVID-19 Exposure Response Date Recorded In the last 10 days, have yo u been in contact with someone who was confirmed or suspected to have Coronavirus/COVID-19? No / Unsure 10/13/2022 11:29 AM CHARGE LPN documented as of this encounter Plan of Treatment Upcoming Encounters Date Type Department Care Team (Late st Contact Info) Description 12/17/2024 9:30 AM CDT Lab [facility] Laboratory [address] [place] [address] 12/23/2024 4:00 PM CDT Office Visit [facility] 6545 [facility] 450 [place] [address] Cyrus Aleman MD [address] [place] [address] 096355 01/27/2025 10:00 AM CDT Office Visit [facility] Neurology [address] 200 [place] [phone] Anel Long, JOURNEYMAN POWER PLANT OPERATOR [address] [place], [place] [address] Coni Dhaliwal, SPECIAL EQUIPMENT TECHNICIAN [address] [facility] 450 [place], [place] [address] 04/14/2025 11:15 AM CDT Office Visit [facility] Heart [facility] [address] [facility] [address] [place] [phone] Inessa Esteves DO [address] [place], [place] [address] 06/05/2025 12:30 PM CDT Office Visit [facility] Endocrinology Clinic [address] [place] [phone] Stephie Mahoney MD [address] [place] [address] 101 [place], [place] [address] 11/13/2025 11:00 AM CDT Virtual Visit [facility] Endocrinology [address] [place] [phone] Stephie Mahoney MD [address] [place] [address] documented as of this encounter Visit Diagnoses Not on filedocumented in this encounter Additional Health Concerns Infection Onset Date Last Indicated Resolved Time Rule Out COVID-19 10/12/2024 10/12/2024 10/12/2024 11:31 AM CHARGE LPN documented as of this encounter Care Teams Director Internal Control Relationship Specialty [place] [address] [facility] [place] [address] PCP - General Family Practice 11/21/16 [place] [address] [address] [facility] [address] Assigned PCP 01/30/21 07/11/24 Stephie Mahoney MD [address] [place] [address] Endocrinology, Diabetes, and Metabolism 04/22/21 Federica Foster, RN [address] [place] [address] Core Shaper Sides Diabetes Education 04/22/[address] [place] [address] Core Shaper Sides Nutrition 04/22/21 Stephie Mahoney MD [address] [place] [address] Assigned Endocrinology Provider 05/08/21 Olga Garcia RN Specialty Inspector Wire Rope INTERNAL MEDICINE - ENDOCRINOLOGY, DIABETES & METABOLISM 09/29/22 Matt Baez MD [address] [place], [place] [address] Assigned Heart and Vascular Provider 12/23/22 05/04/23 Junior Chavira MD [address] [place] [address] Cardiovascular Disease 05/29/24 [place] [address] [address] [place], [place] 3[address] Assigned PCP 07/12/24 Junior Chavira MD [address] [place] 43[address]85 Assigned Heart and Vascular Provider 08/11/24 Coni Dhaliwal, COREY [address] [place] [address] Nurse Practitioner Psychiatry & Neurology Vascular Neurology 11/04/24 Anel Logn NP [address] [place], [place] [address] Nurse Practitioner Psychiatry & Neurology Vascular Neurology 11/04/24 Angel Balbuena MD [address] [facility] [place], [place] [address] Assigned Heart and Vascular Surgical Provider 12/10/24 documented as of this encounter
--- OUTSIDE RECORDS SUMMARY | 2024-12-11 23:55 | XMS_ITS | Data Portability ---
Author Organization [facility] Derm atology, Main Office Address [address] [facility] [address] [facility] [place] [address] Assessment Encounter Date Assessment Date Assessment LastModified [...] phone number Follow-up in 8 days in [place] Total stages 2 total sections to squared surface area he has 3-1/2 x 6 equaling 18 cm on the eyelid/upper cheek Not available 05/02/2022 23:07:51 Plan of Treatment Reminders Order Date Submit Date Provider Last Modified By Organization Details Last Modified Time Details Appointments None recorded . Lab None recorded . Referral None recorded . Procedures None recorded . Surgeries None recorded . Imaging None recorded . Medication Orders oxycodon e-acetam inophen 5 mg-325 mg tablet 022 05/02/20 22 apappas6 [id number], [address] [facility] [place], [address], 23:07:52 Patient TargetsNo targets recorded. Patient Instructions Encounter Date Encounter Id Patient Instructions Last Modified By Organization Details Last Modified Time 05/01/2022 [id number] acute pain after surgery: care instructions Not [...] Ultra-Fine Kirti Pen Needle 32 gauge x 5/32 Use 4 pen needles daily or as [...] Available No t Available FreeStyle Audrey 2 [place] 1 each once for 1 dose active [...] Diagnosis/Indication Diagnosis SNOMED-CT Code Diagnosis ICD10 Code Diagnosis Note [id number] Chalino Berrios MD Main Office [facility] [address] 05/01/2022 12:07:10 05/02/2022 23:08:19 Basal cell carcinoma of lower eyelid 241925457 C44.111 Postoperative pain 53696 9007 G89.18 Health Concerns Section Related Observation LastModified by Organization Detai ls LastModified Time None Recorded Concern Status LastModified by Organization Details LastModified Time None Recorded Advance Directives Directive None Recorded Payers Encounter Date Sequence Insurance Name Policy Number Policy Fisher Covered Member ID Fisher Member ID Guarantor Name 05/01/2022 1 [place] [id number] Santy Glez [id number] Santy Glez Notes Date Note Type Note Provider Name and Address Organization Details Recorded Time 05/01/2022 text/html 61-year-old accompanied by his throughout 80% of visit she does not present for the closure or stage II but does the preoperative discussion and later 1 Past medical history family history and social history unchanged since her prior visit in [place]. He is on blood thinners. Has had a previous brain tumor, and heart valve dysfunction and replacement. Chalino Berrios MD [address] [facility] [place], [address], [facility] Dermatology 05/02/2022 23:08:08
--- OUTSIDE RECORDS SUMMARY | 2024-12-11 23:55 | XMS_ITS | Encounter Summary ---
Author Organization [place] Address [address] [place] [address]. [place] [address] Care Team Providers Care Nanotechnology Engineering Technician Name Role Phone Wilber Vidales MD Primary Care Provider [phone] Wilber Vidales MD Unavailable Matt Baez MD Unavailable [phone] Wilber Vidales MD Unavailable Wilber Vidales MD Unavailable Stephie Mahoney MD Unavailable [phone] Federica Foster RN Unavailable [phone] Unavailable [phone] Stephie Mahoney MD Unavailable [phone] Olga Garcia RN Unavailable [phone] Matt Baez MD Unavailable Junior Chavira MD Unavailable [phone] Shantel Walker MD Unavailable [phone] Junior Chavira MD Unavailable [phone] Coni Dhaliwal CNP Unavailable [phone] Anel Long NP Unavailable [phone] Angel Balbuena MD Unavailable [phone] Encounter Details Date Type Department Care Team (Late st Contact Info) Description 01/05/2020 MyC Medical Advice [facility] Heart Care [address] [facility] [address] [place] [address] Arielle Adams, RN Social History Tobacco [...] and Family Once a week 03/17/2019 Attends Jewish Services More than 4 times per year [...] Answer Date Recorded PHQ-2 Score 0 08/27/2018 [facility] [place] of Occupat ional Health - Occupational Stress [...] AM CDT 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 Gender Identity Male 03/03/2019 9:24 PM CDT [...] 9:30 AM CDT Lab [facility] [address] [place] [address] 12/23/2024 4:00 PM CDT Office Visit [address] [phone] Cyrus Aleman MD [address] [place] [address] 01/27/2025 10:00 AM CDT Office Visit [facility] Neurology [address] [phone] Anel Long, PERFORMANCE CONSULTANT [address] [place], [place] [address] Coni Dhaliwal, BLOOD TYPER [address] [place] [address] 04/14/2025 11:15 AM CDT Office Visit [facility] Heart [facility] [address] [facility] [address] [place] [phone] YungvannesaInessa DO [address] [place] [address] 06/05/2025 12:30 PM CDT Office Visit [facility] Endocrinology [address] [phone] Stephie Mahoney MD [address] [place] [address]66[address] 11/13/2025 11:00 AM CDT Virtual Visit [facility] Endocrinology [address] [phone] Stephie Mahoney MD [address] [place] [address] 024285 documented as of this encounter Visit Diagnoses Not on filedocumented in this encounter Additional Health Concerns Infection Onset Date Last Indicated Resolved Time Rule Out COVID-19 03/10/2022 03/10/2022 03/10/2022 1:37 AM CDT COVID-19 03/10/2022 03/10/2022 03/31/2022 11:3 9 PM CDT Rule Out COVID-19 10/12/2024 10/12/2024 10/12/2024 11:31 AM PARENT COACH documented as of this encounter Care Teams Nanotechnology Engineering Technician Relationship Specialty [place] [address] [address] [address] PCP - General Family Practice 11/21/16 [place] [address] [place] [address] Assigned PCP 10/31/20 01/29/21 Matt Baez MD [address] [place] [address] Assigned Heart and Vascular Provider 06/11/20 06/23/22 [place] [address] [place] [address] Assigned PCP 11/02/16 10/30/20 [place] [address] [place] [address] Assigned PCP 01/30/21 07/11/24 Stephie Mahoney MD [address] 973535 Endocrinology, Diabetes, and Metabolism 04/22/21 Federica Foster, RN [address] [place] [address] 520005 Airport Utility Worker Diabetes Education 04/22/[address] [place] [address] Airport Utility Worker Nutrition 04/22/21 Stephie Mahoney MD [address] [place] [address] Assigned Endocrinology Provider 05/08/21 Olga Garcia, RN Specialty Manager Group Home INTERNAL MEDICINE - ENDOCRINOLOGY, DIABETES & METABOLISM 09/29/22 Matt Baez MD [address] [place] [address] Assigned Heart and Vascular Provider 12/23/22 05/04/23 Junior Chavira MD [address] [place] [address] Cardiovascular Disease 05/29/24 [place] [address] [address] [place], [place] 47460[address] Assigned PCP 07/12/24 Junior Chavira MD [address] [place] [address] Assigned Heart and Vascular Provider 08/11/24 Coni Dhaliwal CNP [address] [place] [address] Nurse Practitioner Psychiatry & Neurology Vascular Neurology 11/04/24 Anel Long NP [address] [place] [address] Nurse Practitioner Psychiatry & Neurology Vascular Neurology 11/04/24 Angel Balbuena MD [address] [place], [place] [address] Assigned Heart and Vascular Surgical Provider 12/10/24 documented as of this encounter
--- OUTSIDE RECORDS SUMMARY | 2024-12-11 23:55 | XMS_ITS | Encounter Summary ---
Author Organization [facility] Address [address] [place] [address]. [place] [address] Care Team Providers Care Subject Scientific Research Name Role Phone Wilber Vidales MD Primary Care Provider [phone] Matt Baez MD Unavailable Wilber Vidales MD Unavailable Stephie Mhaoney MD Unavailable Federica Foster RN Unavailable Tova Welch RD Unavailable [phone] Stephie Mahoney MD Unavailable Olga Garcia RN Unavailable [phone] Matt Baez MD Unavailable [phone] Junior Chavira MD Unavailable [phone] Shantel Walker MD Unavailable [phone] Junior Chavira MD Unavailable [phone] Coni Dhaliwal CNP Unavailable [phone] Anel Long NP Unavailable [phone] Angel Balbuena MD Unavailable [phone] Encounter Details Date Type Department Care Team (Late st Contact Info) Description 04/17/2022 MyC Medical Advice [facility] Diabetes Education [address] 3rd [place] [address] Anel Baez, RN Social History Tobacco [...] any clubs o r organizations such as jehovah's witness groups, unions, fraternal or athletic groups, or [...] Answer Date Recorded PHQ-2 Score 0 04/14/2022 [facility] [place] of Occupat ional Health - Occupational Stress [...] place to sleep or slept in a penitentiary (including now)? No 06/27/2021 Education Answer Date Recorded What is the highest level of school you have completed or the highest degree you have received? 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 TUTOR Gender Identity Male 03/03/2019 9:24 PM CDT Sexual Orientation Straight 03/03/2019 9: 24 PM CDT documented as of this encounter Plan of Treatment Upcoming Encounters Date Type Department Care Team (Late st Contact Info) Description 12/17/2024 9:30 AM CDT Lab [address] [address] 12/23/2024 4:00 PM CDT [facility] Visit [facility] [address] [facility] [address] [place] [phone] Cyrus Aleman MD [address] [place] [address] 01/27/2025 10:00 AM CDT Office Visit [facility] Neurology [address] [place] [phone] Anel Long, PAVER LAYER [address] [place] [address] [place] [address] Coni Dhaliwal, OUTSEWER [address] [facility] 450 [place] [address] 04/14/2025 11:15 AM CDT Office Visit [facility] [address] [facility] 140 [place] [phone] Inessa Esteves, [address] [place], [place] [address] 06/05/2025 12:30 PM CDT Office Visit [facility] Endocrinology Clinic [address] [address] Stephie Mahoney MD [address] [place] [address] 11/13/2025 11:00 AM CDT Virtual Visit [facility] Endocrinology Clinic [address] [address] Stephie Mahoney MD [address] [place] [address] 765475 documented as of this encounter Visit Diagnoses Not on filedocumented in this encounter Additional Health Concerns Infection Onset Date Last Indicated Resolved Time Rule Out COVID-19 10/12/2024 10/12/2024 10/12/2024 11:31 AM ACCOUNTING TUTOR documented as of this encounter Care Teams Subject Scientific Research Relationship Specialty Start [place] [address] [place] [address] PCP - General Family Practice 11/21/16 Matt Baez MD [address] [place] [address] Assigned Heart and Vascular Provider 06/11/20 06/23/22 [place] [address] [place] [address] Assigned PCP 01/30/21 07/11/24 Stephie Mahoney MD [address] [place] [address] Endocrinology, Diabetes, and Metabolism 04/22/21 Federica Foster, RN [address] [place] [address] Tempering Oven Operator Diabetes Education 04/22/[address] [place] [address] Tempering Oven Operator Nutrition 04/22/21 Stephie Mahoney MD [address] [place] [address] Assigned Endocrinology Provider 05/08/21 Olga Garcia RN Specialty Phone Banker INTERNAL MEDICINE - ENDOCRINOLOGY, DIABETES & METABOLISM 09/29/22 Matt Baez MD [address] [place] [address] Assigned Heart and Vascular Provider 12/23/22 05/04/23 Junior Chavira MD [address] [place] [address] Cardiovascular Disease 05/29/24 [place] [address] [place] [address] Assigned PCP 07/12/24 Junior Chavira MD [address] [place] 57[address]95 Assigned Heart and Vascular Provider 08/11/24 Coni Dhaliwal CNP [address] [place] [address] Nurse Practitioner Psychiatry & Neurology Vascular Neurology 11/04/24 Anel Long NP [address] [place], [place] [address] Nurse Practitioner Psychiatry & Neurology Vascular Neurology 11/04/24 Angel Balbuena MD [address] [place], [place] [address] Assigned Heart and Vascular Surgical Provider 12/10/24 documented as of this encounter
--- OUTSIDE RECORDS SUMMARY | 2024-12-11 23:55 | XMS_ITS | Encounter Summary ---
Author Organization [place] Address [address] [place] [address]. [place] [address] Care Team Providers Care Gas Distribution Supervisor Name Role Phone Wilber Vidales MD Primary Care Provider [phone] Stephie Mahoney MD Unavailable [phone] Federica Foster RN Unavailable [phone] Unavailable [phone] Stephie Mahoney MD Unavailable [phone] Olga Garcia RN Unavailable [phone] Junior Chavira MD Unavailable [phone] Shantel Walker MD Unavailable [phone] Junior Chavira MD Unavailable [phone] Coni Dhaliwal CNP Unavailable [phone] Anel Long NP Unavailable [phone] Angel Balbuena MD Unavailable [phone] Encounter Details Date Type Department Care Team (Late st Contact Info) Description 07/24/2024 [facility] [address] [place] [address] [address] [place] [address] Junior Chavira MD [address] [place] [address] Social History Tobacco Use Types Packs/Day Years [...] How often do you attend chur or quaker services? 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 Gender Identity Male 03/03/2019 9:24 PM CDT Sexual Orientation Straight 03/03/2019 9: 24 PM CDT documented as of this encounter Plan of Treatment Upcoming Encounters Date Type Department Care Team (Late st Contact Info) Description 12/17/2024 9:30 AM CDT Lab [facility] [address] [place] [phone] 12/23/2024 4:00 PM CDT Office Visit [facility] 6545 [facility] 450 [place] [phone] Cyrus Aleman MD [address] [place] [address] 01/27/2025 10:00 AM CDT Office Visit [facility] Neurology [facility] [address] [place] [address] 200 [place] [phone] Anel Long, SAND MIXER [address] [place], [place] [address] Coni Dhaliwal, SURFACING TECHNICIAN [address] [facility] 450 [place], [place] [address] 04/14/2025 11:15 AM CDT Office Visit [facility] Heart [facility] [address] [facility] [address] [place] [phone] Inessa Esteves, [address] [place], [place] [address] 06/05/2025 12:30 PM CDT Office Visit [facility] Endocrinology [address] [place] [phone] Stephie Mahoney MD [address] [place] [address] 556685 11/13/2025 11:00 AM CDT Virtual Visit [facility] Endocrinology [address] [place] [phone] Stephie Mahoney MD [address] [place] [address] documented as of this encounter Visit Diagnoses Not on filedocumented in this encounter Additional Health Concerns Infection Onset Date Last Indicated Resolved Time Rule Out COVID-19 10/12/2024 10/12/2024 10/12/2024 11:31 AM FORGE UTILITY WORKER documented as of this encounter Care Teams Gas Distribution Supervisor Relationship Specialty [place] [address] [place] [address] PCP - General Family Practice 11/21/16 Stephie Mahoney MD [address] [place] [address] Endocrinology, Diabetes, and Metabolism 04/22/21 Federica Foster RN [address] [place] [address] Music Coordinator Diabetes Education 04/22/[address] [place] [address] Music Coordinator Nutrition 04/22/21 Stephie Mahoney MD [address] [place] [address] Assigned Endocrinology Provider 05/08/21 Olga Garcia RN Specialty Coffee Maker Servicer INTERNAL MEDICINE - ENDOCRINOLOGY, DIABETES & METABOLISM 09/29/22 Junior Chavira MD [address] [place] [address] Cardiovascular Disease 05/29/24 [place] [address] [place] [address] Assigned PCP 07/12/24 Junior Chavira MD [address] [place] 118[address] Assigned Heart and Vascular Provider 08/11/24 Coni Dhaliwal, COREY [address] [place] [address] Nurse Practitioner Psychiatry & Neurology Vascular Neurology 11/04/24 Anel Long NP [address] [place] [address]235 Nurse Practitioner Psychiatry & Neurology Vascular Neurology 11/04/24 Angel Balbuena MD [address] [place] [address] Assigned Heart and Vascular Surgical Provider 12/10/24 documented as of this encounter
--- OUTSIDE RECORDS SUMMARY | 2024-12-11 23:55 | XMS_ITS | Encounter Summary ---
Author Organization [facility] Address [address] [place] [address]. [place] [address] Care Team Providers Care Ems Manager Name Role Phone Wilber Vidales MD Primary Care Provider [phone] Wilber Vidales MD Unavailable Matt Baez MD Unavailable [phone] Wilber Vidales MD Unavailable Wilber Vidales MD Unavailable Stephie Mahoney MD Unavailable [phone] Federica Foster RN Unavailable [phone] Unavailable [phone] Stephie Mahoney MD Unavailable [phone] Olga Garcia RN Unavailable [phone] Matt Baez MD Unavailable Junior Chavira MD Unavailable [phone] Shantel Walker MD Unavailable [phone] Junior Chavira MD Unavailable [phone] Coni Dhaliwal CNP Unavailable [phone] Anel Long NP Unavailable [phone] Angel Balbuena MD Unavailable [phone] Reason for Visit * Reason Onset Date Comments Medication Question 10/21/2020 Encounter Details Date Type Department Care Team (Late st Contact Info) Description 10/21/2020 MyC Medical Advice [facility] [address] [place] [phone] [place] [address] [place] [address] Medication Question Social History Tobacco Use Types [...] and Family Once a week 03/17/2019 Attends [employer] Services More than 4 times per year [...] Answer Date Recorded PHQ-2 Score 0 08/27/2018 [facility] [employer] of Occupat ional Health - Occupational Stress [...] AM CDT Legal Sex Male 3:40 AM 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 Gender Identity Male 03/03/2019 9:24 PM CDT Sexual Orientation Straight 03/03/2019 9: 24 PM CDT documented as of this encounter Plan of Treatment Upcoming Encounters Date Type Department Care Team (Late st Contact Info) Description 12/17/2024 9:30 AM CDT Lab [facility] Laboratory [address] [place] [phone] 12/23/2024 4:00 PM CDT Office Visit [address] [phone] Cyrus Aleman MD [address] [place] [address] 692585 01/27/2025 10:00 AM CDT Office Visit [facility] Neurology [address] [phone] Anel Long, DIETETIC ASSISTANT [address] [place], [place] [address] Coni Dhaliwal, FLASK HANDLER [address] [place] [address] 04/14/2025 11:15 AM CDT Office Visit [facility] Heart [facility] [address] [facility] [address] [place] [phone] LeroyInessa wesleyDO [address] [place] [address] 06/05/2025 12:30 PM CDT Office Visit [facility] Endocrinology [address] [phone] Stephie Mahoney MD [address] [place] [phone] 11/13/2025 11:00 AM CDT Virtual Visit [facility] Endocrinology [address] [phone] Stephie Mahoney MD [address] 237[address] documented as of this encounter Visit Diagnoses Not on filedocumented in this encounter Additional Health Concerns Infection Onset Date Last Indicated Resolved Time Rule Out COVID-19 03/10/2022 03/10/2022 03/10/2022 1:37 AM CDT COVID-19 03/10/2022 03/10/2022 03/31/2022 11:3 9 PM CDT Rule Out COVID-19 10/12/2024 10/12/2024 10/12/2024 11:31 AM 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 documented as of this encounter Care Teams Ems Manager Relationship Specialty [place] [address] [address] [place] [address] PCP - General Family Practice 11/21/16 [place] [address] [place] [address] Assigned PCP 10/31/20 01/29/21 aMtt Baez MD [address] [place] [address] Assigned Heart and Vascular Provider 06/11/20 06/23/22 [place] [address] [place] [address] Assigned PCP 11/02/16 10/30/20 [place] [address] [place] [address] Assigned PCP 01/30/21 07/11/24 Stephie Mahoney MD [address] [address] Endocrinology, Diabetes, and Metabolism 04/22/21 Federica Foster, RN [address] [place] [address] Body Service Team Member Diabetes Education 04/22/[address] [place] [address] Body Service Team Member Nutrition 04/22/21 Stephie Mahoney MD [address] [place] [address] Assigned Endocrinology Provider 05/08/21 Olga Garcia, RN Specialty Manager People INTERNAL MEDICINE - ENDOCRINOLOGY, DIABETES & METABOLISM 09/29/22 Matt Baez MD [address] [place] [address] Assigned Heart and Vascular Provider 12/23/22 05/04/23 Junior Chavira MD [address] [place] [phone] Cardiovascular Disease 05/29/24 [place] [address] [place] [address] Assigned PCP 07/12/24 Junior Chavira MD [address] [place] [address] Assigned Heart and Vascular Provider 08/11/24 Coni Dhaliwal CNP [address] [place] [address] Nurse Practitioner Psychiatry & Neurology Vascular Neurology 11/04/24 Anel Long NP [address] [place] [address] Nurse Practitioner Psychiatry & Neurology Vascular Neurology 11/04/24 Angel Balbuena MD [address] [place], [place] [address] Assigned Heart and Vascular Surgical Provider 12/10/24 documented as of this encounter
--- OUTSIDE RECORDS SUMMARY | 2024-12-11 23:55 | XMS_ITS ---
Author Organization [facility] Address [address] [place] [address]. [place] [address] Care Team Providers Care Amusement Park Worker Name Role Phone Wilber Vidales MD Primary Care Provider [phone] Stephie Mahoney MD Unavailable [phone] Federica Foster RN Unavailable [phone] Unavailable [phone] Stephie Mahoney MD Unavailable [phone] Olga Garcia RN Unavailable [phone] Junior Chavira MD Unavailable [phone] Shantel Walker MD Unavailable [phone] Junior Chavira MD Unavailable [phone] Coni Dhaliwal EMBOSSING PRESS OPERATOR [employer] Unavailable [phone] Anel Long NP Unavailable Angel Balbuena MD Unavailable [phone] Transitional Care Management Status:Closed (Closed) Start date:11/05/2024 Enrollment date:11/06/2024 End date:11/19/2024 Close reason:Goals met Continued Care and Services Coordination
--- OUTSIDE RECORDS SUMMARY | 2024-12-11 23:55 | XMS_ITS | Encounter Summary ---
Author Organization [facility] Address [address] [place] [address]. [place] [address] Care Team Providers Care Billet Straightener Name Role Phone Wilber Vidales MD Primary Care Provider [phone] Matt Baez MD Unavailable Wilber Vidales MD Unavailable Stephie Mahoney MD Unavailable Federica Foster RN Unavailable [address] Unavailable [phone] Stephie Mahoney MD Unavailable Olga Garica RN Unavailable [phone] Matt Baez MD Unavailable [phone] Junior Chavira MD Unavailable [phone] Shantel Walker MD Unavailable [phone] Junior Chavira MD Unavailable [phone] Coni Dhaliwal CNP Unavailable [phone] Anel Long NP Unavailable [phone] Angel Balbuena MD Unavailable [phone] Encounter Details Date Type Department Care Team (Late st Contact Info) Description 03/10/2022 MyC Medical Advice [facility] Endocrinology Clinic [place] [phone] [facility] [address] [place] [address] Stephie Mahoney MD [address] [facility] [address] [place] [address] Social History Tobacco Use Types Packs/Day Years [...] 06/27/2021 How often do you attend [facility]? 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 Laboratory [address] [place] [phone] 12/23/2024 4:00 PM CDT Office Visit [facility] [address] [facility] [address] [place] [phone] Cyrus Aleman MD [address] [place] [address] 67[address]85 01/27/2025 10:00 AM CDT Office Visit [facility] Neurology [facility] [address] [place] [address] [address] [place] [phone] Anel Long FENCE ERECTOR [address] [place], [place] [address] Coni Dhaliwal, CONTINUOUS MINER OPERATOR HELPER [address] [place], [place] [address] 04/14/2025 11:15 AM CDT Office Visit [facility] Heart [facility] [address] [facility] [address] [place] [phone] Inessa Esteves, [address] [place], [place] [address] 06/05/2025 12:30 PM CDT Office Visit [facility] Endocrinology [address] [place] [address] Stephie Mahoney MD [address] [place] [address] [address] [place], [place] [phone] 11/13/2025 11:00 AM CDT Virtual Visit [facility] Endocrinology [address] [place] [phone] Stephie Mahoney MD [address] 1123[address] documented as of this encounter Visit Diagnoses Not on filedocumented in this encounter Additional Health Concerns Infection Onset Date Last Indicated Resolved Time Rule Out COVID-19 03/10/2022 03/10/2022 03/10/2022 1:37 AM CDT COVID-19 03/10/2022 03/10/2022 03/31/2022 11:3 9 PM CDT Rule Out COVID-19 10/12/2024 10/12/2024 10/12/2024 11:31 AM SHELTER CASE MANAGER documented as of this encounter Care Teams Billet Straightener Relationship Specialty [place] [address] [place] [address] PCP - General Family Practice 11/21/16 Matt Baez MD [address] [facility] [address] [place] [address] Assigned Heart and Vascular Provider 06/11/20 06/23/22 [place] [address] [place] [address] Assigned PCP 01/30/21 07/11/24 Stephie Mahoney MD [address] [address] Endocrinology, Diabetes, and Metabolism 04/22/21 Federica Foster, RN 420 [place] [address] Parachute Taper Diabetes Education 04/22/[address] [place] [address] Parachute Taper Nutrition 04/22/21 Stephie Mahoney MD [address] [place] [address] [address] [place] [address] Assigned Endocrinology Provider 05/08/21 Olga Garcia RN Specialty Link Trainer Maintenance Worker INTERNAL MEDICINE - ENDOCRINOLOGY, DIABETES & METABOLISM 09/29/22 Matt Baez MD [address] [place], [place] [address] Assigned Heart and Vascular Provider 12/23/22 05/04/23 Junior Chavira MD [address] [place] [address] Cardiovascular Disease 05/29/24 [place] [address] [place] [address] Assigned PCP 07/12/24 Junior Chavira MD [address] [place] [address]25[address] Assigned Heart and Vascular Provider 08/11/24 Coni Dhaliwal, CONTINUOUS MINER OPERATOR HELPER [address] [place] [address] Nurse Practitioner Psychiatry & Neurology Vascular Neurology 11/04/24 Anel Long, FENCE ERECTOR [address] [place] [address] Nurse Practitioner Psychiatry & Neurology Vascular Neurology 11/04/24 Angel Balbuena MD [address] [place] [address] Assigned Heart and Vascular Surgical Provider 12/10/24 documented as of this encounter
[2024-12-11 23:56] VITALS: O2SAT 96
[2024-12-12] VITALS (15 sets, daily range): BP systolic 147–160; BP diastolic 82–95; PULSE 69–80; RESP 11–21; TEMP 36.7–36.8; O2SAT 91–97; BMI 26.2
--- NOTE | 2024-12-12 00:05 | ED.GENADULT ---
HPI - General Adult General Chief complaint: Extremity Pain/Injury, Upper Stated complaint: Left hand numb, thinks stroke Time Seen by Provider: 12/11/24 23:45 History of Present Illness HPI narrative: Patient is a 63-year-old male with recent past medical history as follows: Patient has a complex medical history including several brain surgeries, type 1 diabetes, a obstructive sleep apnea, paroxysmal atrial fib, aortic valve replacement, hypertension and most recently right lower lobe pneumonia with chest tube placement along with right ischemic stroke of frontal lobe. Patient presented to [facility] on 10/12/2024 with a fall, left-sided weakness and hypoxia. Patient had recently been diagnosed with influenza and a CT of his chest showed a right lower lobe pneumonia, right pleural effusion and multiple liver lesions. Patient was started on antibiotics and subsequently underwent thoracentesis. A chest tube was placed on 10/16 and removed on 10/24/2024. Patient was diagnosed with atrial fibrillation with RVR and given an amiodarone infusion. Patient has had consult with Neurology due to acute ischemic stroke of right frontal lobe due to cardioembolism despite anticoagulation. Patient was recently discharged from the acute rehabilitation unit at the [facility]. He has struggled with hyponatremia with a sodium as low as 127. He was sent home with his with PT, OT and speech coming to the home that has been extremely difficult for both of them. She is here for repeat labs and to get a referral to PT, OT and speech at a rehab center. He continues to be somewhat weak with some left-sided weakness. He is walking with a cane is mildly unsteady. No cognitive deficits Presents to the ER vance at midnight after noting at 5:00 p.m. what he describes as problems with coordination of his left upper extremity, and what he states as numbness, but what he really means as difficulty with coordination. When specifically asked, he denies any sensory loss. He denies headache or other pain. He notes chronic deficit on the left side with peer weakness but denies prior sensory symptoms or problems with coordination. His is apparently out of town, it is unclear why he waited until midnight come in, he says that he had difficulty navigating from [place] to [place], that his map initially took him in different direction. He does continue to be anticoagulated on Eliquis. He does not take aspirin per his report. Related Data Home Medications ?Medication ?Instructions ?Recorded ?Confirmed lamotrigine 100 mg tablet mg PO BID 03/21/22 12/08/24 modafinil 200 mg tablet 200 mg PO DAILY 03/21/22 12/08/24 multivitamin with iron (Daily 1 tab PO QDAY 03/21/22 12/08/24 Multiple Vitamins with Iron tablet) apixaban 5 mg tablet (Eliquis) 5 mg PO BID 08/09/23 12/08/24 ascorbic acid (vitamin C) 1,000 mg 1 g PO QDAY 07/02/24 12/08/24 capsule atorvastatin 40 mg tablet 40 mg PO QHS 07/02/24 12/08/24 blood-glucose sensor (DexCitiLogics G7 07/02/24 12/08/24 Sensor device) blood-glucose transmitter (Dexcom 07/02/24 12/08/24 G6 Transmitter device) cholecalciferol (vitamin D3) 125 125 mcg PO QDAY 07/02/24 12/08/24 mcg (5,000 unit) capsule eszopiclone 3 mg tablet 3 mg PO QPM 07/02/24 12/08/24 ezetimibe 10 mg tablet 10 mg PO DAILY 07/02/24 12/08/24 insulin aspart U-100 100 unit/mL 80 unit subcut DAILY 07/02/24 12/08/24 subcutaneous solution (Novolog U-100 Insulin aspart) insulin glargine 100 unit/mL (3 20 unit subcut QAM 07/02/24 12/08/24 mL) subcutaneous pen insulin pump cartridge,auto 07/02/24 12/08/24 dose,BT,G6/G7 with controller subcutaneous (Omnipod 5 G6-G7 Intro Kit(Gen 5) subcutaneous cartridge and controller) lamotrigine 200 mg tablet 200 mg PO BID 07/02/24 12/08/24 lisinopril 30 mg tablet 30 mg PO DAILY 07/02/24 12/08/24 metformin 500 mg tablet 500 mg PO QPM 07/02/24 12/08/24 sildenafil 100 mg tablet 100 mg PO DAILY PRN 07/02/24 12/08/24 tizanidine 2 mg tablet 2 mg PO Q8H PRN 07/02/24 12/08/24 zinc gluconate 50 mg tablet 50 mg PO QDAY 07/02/24 12/08/24 metoprolol succinate 50 mg 50 mg PO BID 11/12/24 12/08/24 tablet,extended release 24 hr Previous Rx's ?Medication ?Instructions ?Recorded hydrocodone 5 mg-acetaminophen 325 1 tab PO Q6H PRN pain #6 tabs 12/08/24 mg tablet tizanidine 2 mg tablet 4 mg (2 x 2 mg) PO Q8H PRN muscle 12/08/24 spasticity #20 tabs Allergies Allergy/AdvReac Type Severity Reaction Status Date / Time phenytoin Allergy Severe high Verified 12/08/24 19:05 fever, rash Sulfa (Sulfonamide Allergy Mild rash Verified 12/08/24 19:05 Antibiotics) Review of Systems Status of ROS: Reports: 10 or more systems reviewed and unremarkable except as noted in History and below [facility] Medical History (Updated 12/12/24 @ 00:47 by Shantel Melendez MD) Diabetes type 1 ?E10.9 - Type 1 diabetes mellitus without complications (ICD-10) Community acquired pneumonia of right lower lobe of lung ?J18.9 - Pneumonia, unspecified organism (ICD-10) Cerebrovascular accident (CVA) involving anterior circulation of right side ?I63.521 - Cerebral infarction due to unspecified occlusion or stenosis of right anterior cerebral artery (ICD-10) Hyponatremia ?E87.1 - Hypo-osmolality and hyponatremia (ICD-10) History of astrocytoma of brain ?Z85.841 - Personal history of malignant neoplasm of brain (ICD-10) Chronic ear infection ?H66.90 - Otitis media, unspecified, unspecified ear (ICD-10) Surgical History History of craniotomy ?Z98.890 - Other specified postprocedural states (ICD-10) Status post coronary angiogram ?Z98.890 - Other specified postprocedural states (ICD-10) Hx of appendectomy ?Z90.49 - Acquired absence of other specified parts of digestive tract (ICD-10) Status post Mohs micrographic surgery for basal cell carcinoma (BCC) ?Z98.890 - Other specified postprocedural states (ICD-10) ?Z85.828 - Personal history of other malignant neoplasm of skin (ICD-10) Family History Father Prostate cancer Bladder cancer Social History What is your current living situation?: I presently have a place to live Problems where you live: no known problems Problems where you live details: na In the past 12 months, utilities in danger of being shut off: no In past 12 months, lack of transportation kept you from medical appts, meetings, work, or getting things needed for daily living: no In the past 12 mos, have been you worried that your food would run out before you had money to buy more?: never true In the past 12 mos, the food you bought just didn't last and you didn't have money to buy more?: never true Smoking Status: Never smoker How often do you have a drink containing alcohol: 4 or more times a week Alcohol type: beer How many standard drinks containing alcohol do you have on a typical day: 1 or 2 How often do you have six or more drinks on one occasion: Never AUDIT-C Alcohol total score: 4 Non-prescribed substance use: denies use Caffeine: Yes (coffee) How often does anyone, including family, friends and others, physically hurt you: never How often does anyone, including family, friends and others, insult or talk down to you: sometimes How often does anyone, including family, friends and others, threaten you with harm: never How often does anyone, including family, friends and others, scream or curse at you: sometimes service: Yes Health Related Social Needs: Other personal risk factors, not elsewhere classified (Z91.89) Exam Narrative: Exam Narrative: Vital signs reviewed In general, alert, nontoxic mid age male. Head: Normocephalic, atraumatic. Eyes: Sclera clear. Pupils equal and reactive. Extraocular movements are full. ENT: Mucous membranes moist. Neck: Supple without adenopathy. Heart: Regular rate and rhythm without murmur. Lungs: Clear. No increased work of breathing, crackles or wheezes. Abdomen: Soft, nontender to palpation. Extremities: Well perfused, pulses intact. No significant edema. Neurologic: Alert, conversant. Speech fluent, face symmetric. He is able to raise all 4 extremities, no drift. However, on the left, at the wrist, he has weakness noted in his extensor muscles. He has intact strength in his biceps and triceps. He has intact strength in both legs. He has a tremor noted at rest and with activity of the left upper extremity. He has some ataxia with finger-nose testing on the left. Sensation is intact to light touch throughout, intact to pinprick. Skin: Warm, dry well perfused. Affect: Normal. Const: Vital Signs, click to edit/add: Vital Signs - 24 hr 12/11/24 23:50 12/11/24 23:56 12/12/24 00:12 Temperature 98.1 F Pulse Rate 77 Pulse Rate [Pulse Oximeter] 97 Respiratory Rate 16 Blood Pressure Blood Pressure [Ri ght Upper Arm] 197/120 H Pulse Oximetry 96 96 97 Oxygen Delivery Me thod 12/12/24 00:15 12/12/24 00:17 12/12/24 00:18 Temperature Pulse Rate 75 76 78 Pulse Rate [Pulse Oximeter] Respiratory Rate 15 21 15 Blood Pressure 147/82 H Blood Pressure [Ri ght Upper Arm] Pulse Oximetry 95 94 96 Oxygen Delivery Me thod 12/12/24 00:19 12/12/24 00:33 12/12/24 00:35 Temperature Pulse Rate 76 72 Pulse Rate [Pulse Oximeter] 80 Respiratory Rate 18 12 11 L Blood Pressure 155/85 H Blood Pressure [Ri ght Upper Arm] 147/82 H Pulse Oximetry 93 92 96 Oxygen Delivery Me thod Room Air 12/12/24 00:45 12/12/24 00:47 Temperature Pulse Rate 79 75 Pulse Rate [Pulse Oximeter] Respiratory Rate 18 19 Blood Pressure 160/83 H Blood Pressure [Ri ght Upper Arm] Pulse Oximetry 93 91 Oxygen Delivery Me thod Course Course ED Course: Following brief initial exam, he went over for CT of the head without contrast as well as a CT angiogram of the head and neck. A stroke code was called although he is outside the window of IV thrombolytics and also is anticoagulated with Eliquis. He was significantly hypertensive on arrival although his blood pressure is improved without treatment to a systolic of 150. Blood sugar on his machine was 130. Labs pending. An EKG by my review showed a sinus rhythm at this time with a ventricular rate of 73, poor R-wave progression, no acute ST segment changes. Case was discussed with Neurology on-call, imaging here does not show any acute findings. Recommendation is to continue [place], admit here for MRI in the morning. He is comfortable with that plan, will discuss with Armando and admit to the hospitalist service. Symptoms are stable, no other complaints. Labs reviewed, unremarkable. Vital Signs Vital signs: Initial Vital Signs Temperature 98.1 F 12/11/24 23:50 Temperature Source Temporal Artery Scan 12/11/24 23:50 Pulse Rate 97 12/11/24 23:50 Respiratory Rate 16 12/11/24 23:50 Blood Pressure 197/120 H 12/11/24 23:50 Blood Pressure Mean 145 H 12/11/24 23:50 Blood Pressure Position Sitting 12/11/24 23:50 Pulse Oximetry 96 12/11/24 23:50 Vital Signs Temperature 98.1 F 12/11/24 23:50 Pulse Rate 97 12/11/24 23:50 Respiratory Rate 16 12/11/24 23:50 Blood Pressure 197/120 H 12/11/24 23:50 Pulse Oximetry 96 12/11/24 23:50 Temperature 98.2 F 12/12/24 01:05 Pulse Rate 73 12/12/24 02:54 Respiratory Rate 16 12/12/24 01:05 Blood Pressure 157/89 H 12/12/24 01:05 Pulse Oximetry 96 12/12/24 01:05 Oxygen Delivery Method Room Air 12/12/24 01:05 Medical Decision Making Lab Data Labs: Lab Results 12/11/24 12/12/24 12/12/24 Range/Units 23:53 00:00 00:02 WBC 5.69 (4.50-11.00) K/uL RBC 4.79 (4.30-5.90) m/uL Hgb 14.2 (13.5-17.5) gm/dL Hct 42.3 (37.0-53.0) % MCV 88 (80-100) fL MCH 30 (26-34) pg MCHC 34 (32-36) gm/dL RDW Coeff of [place]et[place] 13.6 (11.5-15.5) % Plt Count 217 (140-440) K/uL Neut % (Auto) 37.5 L (42.0-72.0) % Lymph % (Auto) 38.8 (20-44) % [place] % (Auto) 7.0 (0.0-11.0) % Eos % (Auto) 15.5 H (0.0-7.0) % Baso % (Auto) 0.7 (0.0-3.0) % Neut # (Auto) 2.10 (1.7-7.0) K/uL Lymph # (Auto) 2.21 (0.90-2.90) K/uL [place] # (Auto) 0.40 (0.00-0.90) K/UL Eos # (Auto) 0.90 H (0.00-0.50) K/uL Baso # (Auto) 0.04 (0.00-0.30) K/uL Abs Immat Gran (auto) 0.03 (0.00-0.30) K/uL Imm/Tot Granulo (auto) 0.5 % INR 0.99 (0.91-1.10) APTT 29 (23-33) Seconds Sodium 138 (135-149) mmol/L Potassium 3.9 (3.6-5.1) mmol/L Chloride 99 (96-114) mmol/L Carbon Dioxide 33 H (20-32) mmol/L Anion Gap 6 L (7-15) mEq/L BUN 28 (7-30) mg/dL Creatinine 0.9 (0.5-1.5) mg/dL Estimated Creat Clear 80.10 Estimated GFR 97 ml/min Glucose 118 H (60-115) mg/dL Calcium 9.1 (8.4-10.6) mg/dL Magnesium 2.0 (1.5-2.6) mg/dL Total Bilirubin 0.7 (0.1-1.5) mg/dL AST 35 (12-35) U/L ALT 43 (4-50) U/L Alkaline Phosphatase 130 (40-150) U/L Total Protein 6.8 (6.0-8.3) g/dL Albumin 4.4 (3.3-5.0) g/dL POC Glucose 112 (60-115) mg/dl Imaging Data CT angiogram head and neck: Attestation: I have reviewed the pertinent imaging results. Radiologist's impression: Patient: ALENA RAE Facility: [facility] Site . Site : 1960 Study: CT-Head Angio CTA HEAD STROKE PROTOCOL-12/12/2024 12:14:47 AM Ordering Physician: Nora Funes Preliminary Report: COMPARISON: None. IMPRESSION: CTA head: No sign of large vessel occlusion or significant aneurysm. Non dominant left vertebral artery terminates in the PICA. Intracranial atherosclerotic disease with multifocal narrowing of the basilar artery including severe narrowing of the distal basilar artery. CTA neck: No sign of dissection or significant stenosis. CT scan - head: Attestation: I have reviewed the pertinent imaging results. Radiologist's impression: Patient: ALENA RAE Facility: [facility] Site . Site : 1960 Study: CT-Head W/O STROKE CODE-12/12/2024 12:13:29 AM Ordering Physician: Nora Funes Final Report: INDICATION: Left arm numbness, clumsiness. TECHNIQUE: CT head without contrast. COMPARISON: None. 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 Ex vacuo dilatation of the right lateral ventricle frontal horn. Mild generalized cerebral volume loss. Sheridan-white differentiation is otherwise maintained. Low-attenuation changes in the left frontal lobe white matter, nonspecific may relate to posttreatment changes or chronic small vessel ischemic disease. No hydrocephalus. Basilar cisterns are patent. No evidence of intracranial hemorrhage, extra-axial collection, or midline shift. Atherosclerotic calcifications of the cavernous carotids and carotid siphons. The visualized paranasal sinuses and mastoid air cells demonstrate no acute or significant findings. The visualized orbits are grossly unremarkable. No skull fractures. IMPRESSION: No acute intracranial hemorrhage or mass effect. Please note that all CT scans at this facility use dose modulation, iterative reconstruction, and/or weight-based dosing when appropriate to reduce radiation dose to as low as reasonably achievable. Dictated by Reji Mullen MD @ 12/12/2024 12:21:51 AM ----- ADDENDUM ----- Findings conveyed to Dr. Bray on 12/12/2024 at 12:25 AM. Dictated by Reji Mullen MD @ Dec 12 2024 12:27AM Discharge Plan Discharge Clinical Impression: Acute CVA (cerebrovascular accident) Patient Disposition: Admitted As Observation Condition: Stable
[2024-12-12 00:07] LABS: Basophils Absolute Auto 0.04 K/uL (0.00-0.30); Basophils Percent Auto 0.7 % (0.0-3.0); Eosinophils Percent Auto 15.5 % (0.0-7.0); Hematocrit 42.3 % (37.0-53.0); Hemoglobin* 14.2 gm/dL (13.5-17.5); Immature Granulocytes Abs Auto 0.03 K/uL (0.00-0.30); Immature Granulocytes Pct Auto 0.5 %; Lymphocytes Absolute Auto 2.21 K/uL (0.90-2.90); Lymphocytes Percent Auto 38.8 % (20-44); Mean Corpuscular HGB Conc 34 gm/dL (32-36); Mean Corpuscular Hemoglobin 30 pg (26-34); Mean Corpuscular Volume 88 fL (80-100); Neutrophils Percent Auto 37.5 % (42.0-72.0); Platelet Count* 217 K/uL (140-440); RDW Coefficient of Variation % 13.6 % (11.5-15.5); Red Blood Count 4.79 m/uL (4.30-5.90); White Blood Count* 5.69 K/uL (4.50-11.00)
[2024-12-12 00:11] LABS: Glucose, Point-of-Care* 112 mg/dl (60-115)
[2024-12-12 00:16] LABS: Albumin* 4.4 g/dL (3.3-5.0); Chloride* 99 mmol/L (96-114); Potassium* 3.9 mmol/L (3.6-5.1); Sodium* 138 mmol/L (135-149)
[2024-12-12 00:19] LABS: Alanine Aminotransferase* 43 U/L (4-50); Alkaline Phosphatase* 130 U/L (40-150); Anion Gap 6 mEq/L (7-15); Aspartate Amino Transferase* 35 U/L (12-35); Bilirubin Total* 0.7 mg/dL (0.1-1.5); Blood Urea Nitrogen* 28 mg/dL (7-30); Carbon Dioxide* 33 mmol/L (20-32); Creatinine* 0.9 mg/dL (0.5-1.5); Estimated Glomerular Filt Rate 97 ml/min; INR 0.99 (0.91-1.10); Partial Thromboplastin Time* 29 Seconds (23-33); Prothrombin Time 13.9 Seconds; Total Protein* 6.8 g/dL (6.0-8.3)
[2024-12-12 00:19] LABS: Slide Review Reflex No
[2024-12-12 00:20] LABS: Calcium* 9.1 mg/dL (8.4-10.6); Glucose* 118 mg/dL (60-115)
--- OUTSIDE RECORDS SUMMARY | 2024-12-12 00:20 | XMS_ITS | Encounter Summary ---
Author Organization [facility] Address [address] [place] [address]. [place] [address] Care Team Providers Care Thread Inspector Name Role Phone Wilber Vidales MD Primary Care Provider [phone] Stephie Mahoney MD Unavailable [phone] Federica Foster RN Unavailable [phone] Unavailable [phone] Stephie Mahoney MD Unavailable [phone] Olga Garcia RN Unavailable [phone] Junior Chavira MD Unavailable [phone] Shantel Walker MD Unavailable [phone] Junior Chavira MD Unavailable [phone] Coni Dhaliwal LUMBER BUYER Unavailable [phone] Anel Long NP Unavailable [phone] Angel Balbuena MD Unavailable [phone] Encounter Details Date Type Department Care Team (Late st Contact Info) Description 12/05/2024 [facility]ology Clinic [place] [address] [facility] 3rd [place] [address] Olga Garcia RN Social History [...] any clubs o r organizations such as oriental orthodox groups, unions, fraternal or athletic groups, or [...] Answer Date Recorded PHQ-2 Score 0 11/14/2024 [facility] Questionnaire Answer Date [...] in an abandoned building, in an overnight mcc, or couch-surfing.) Yes 10/29/2024 Are you worried [...] AM CDT 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 [address] [facility] [address] [place] [phone] Cyrus Aleman MD [address] [place] [address] 01/27/2025 10:00 AM CDT Office Visit [facility] [place] [address] [facility] [address] [place] [phone] Anel Long, ORGANIZATIONAL RESEARCH CONSULTANT [address] [place], [place] [phone] Coni Dhaliwal, LUMBER BUYER [address] [facility] [address] [place], [place] [address] 04/14/2025 11:15 AM CDT Office Visit [facility] [address] [facility] [address] [place] [phone] Inessa Esteves DO [address] [facility] [address] [place], [place] [address] 06/05/2025 12:30 PM CDT Office Visit [facility] [address] [phone] Stephie Mahoney MD [address] [id number] 11/13/2025 11:00 AM CDT Virtual Visit [facility] [address] [phone] Stephie Mahoney MD [address] [id number] documented as of this encounter Visit Diagnoses Not on filedocumented in this encounter Care Teams Thread Inspector Relationship Specialty [place] [address] [place] [address] PCP - General Family Practice 11/21/16 Stephie Mahoney MD [address] [place] [address] Endocrinology, Diabetes, and Metabolism 04/22/21 Federica Foster, RN [address] [place] [address] [id number] Wildlife Rehabilitator Diabetes Education 04/22/[address] [place] [address] [id number] Wildlife Rehabilitator Nutrition 04/22/21 Stephie Mahoney MD [address] [place] [address] [id number] Assigned Endocrinology Provider 05/08/21 Olga Garcia RN Specialty Candy Counter Clerk INTERNAL MEDICINE - ENDOCRINOLOGY, DIABETES & METABOLISM 09/29/22 Junior Chavira MD [address] [place] [address] Cardiovascular Disease 05/29/24 [place] [address] [place] [address] Assigned PCP 07/12/24 Junior Chavira MD [address] [place], [place] [phone] Assigned Heart and Vascular Provider 08/11/24 Coni Dhaliwal, COREY [address] 856165 Nurse Practitioner Psychiatry & Neurology Vascular Neurology 11/04/24 Anel Long NP [address] 488365 Nurse Practitioner Psychiatry & Neurology Vascular Neurology 11/04/24 Angel Balbuena MD [address] [place], [place] [address] Assigned Heart and Vascular Surgical Provider 12/10/24 documented as of this encounter
--- OUTSIDE RECORDS SUMMARY | 2024-12-12 00:20 | XMS_ITS | Clinical Summary ---
Author [facility] Address [address], [place] [address] Care Team Providers Care Service Crew Supervisor Name Role Phone Wilber Vidales MD Primary Care Provider [phone] Source Comments You are receiving this document as you are listed as the primary care provider,follow-up provider, or the patient has been referred to you for consultation.This is in compliance with the Medicare and[facility] EHR Incentive Program,which states Providers who transition their patient to another setting of careor provider of care or refers their patient to another provider of care shouldprovide summary care record for each transition of care or referral. 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
--- OUTSIDE RECORDS SUMMARY | 2024-12-12 00:20 | XMS_ITS | Encounter Summary ---
Author Organization [place] Address [address] [place] [address]. [place] [address] Care Team Providers Care Tax Collector Name Role Phone Wilber Vidales MD Primary Care Provider [phone] Stephie Mahoney MD Unavailable [phone] Federica Foster RN Unavailable +[phone] Unavailable [phone] Stephie Mahoney MD Unavailable +[phone] Olga Garcia RN Unavailable [phone] Junior Chavira MD Unavailable [phone] Shantel Walker MD Unavailable +[phone] Junior Chavira MD Unavailable [phone] Coni Dhaliwal CNP Unavailable [phone] Anel Long NP Unavailable [phone] Reason for Visit * Reason Onset Date Comments Transplant Medication Clarification 12/05/2024 Encounter Details Date Type Department Care Team (Late st Contact Info) Description 12/05/2024 Telephone [facility]ology [facility] [place] 512049 [facility] 3rd [place] [address] Olga Garcia, RN Transplant Medication [...] Answer Date Recorded PHQ-2 Score 0 11/14/2024 [facility] - [facility]ational Stress Questionnaire Answer Date [...] AM CDT 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 [address] [place] [address] 200 [place] [phone] Anel Long, TIRE CURER [address] [place], [place] [address] Coni Dhaliwal, COREY [address] [facility] 450 [place], [place] [address] 04/14/2025 11:15 AM CDT Office Visit [facility] [address] [facility] 140 [place] [phone] Inessa Esteves DO [address] [place] [address] 06/05/2025 12:30 PM CDT Office Visit [facility] [address] [phone] Stephie Mahoney MD [address] [place] [address] 807285 11/13/2025 11:00 AM CDT Virtual Visit [facility] [address] [address] Stephie Mahoney MD [address] [place] [address] [phone] documented as of this encounter Visit Diagnoses Not on filedocumented in this encounter Care Teams Tax Collector Relationship Specialty [place] [address] [facility] [place] [address] PCP - General Family Practice 11/21/16 Stephie Mahoney MD [address] [place] [address] Endocrinology, Diabetes, and Metabolism 04/22/21 Federica Foster, RN [address] [place] [address] Churn Operator Diabetes Education 04/22/[address] [place] [address] Churn Operator Nutrition 04/22/21 Stephie Mahoney MD [address] [place] [address] 724445 Assigned Endocrinology Provider 05/08/21 Olga Garcia, RN Specialty Flavorings Compounder INTERNAL MEDICINE - ENDOCRINOLOGY, DIABETES & METABOLISM 09/29/22 Junior Chavira MD [address] [place] 489[address] Cardiovascular Disease 05/29/24 [place] [address] [place] [address] Assigned PCP 07/12/24 Junior Chavira MD [address] [place] [phone] Assigned Heart and Vascular Provider 08/11/24 Coni Dhaliwal, COREY [address] [place] [address] Nurse Practitioner Psychiatry & Neurology Vascular Neurology 11/04/24 Anel Long, TARIK [address] [place] 4[address] Nurse Practitioner Psychiatry & Neurology Vascular Neurology 11/04/24 documented as of this encounter
--- OUTSIDE RECORDS SUMMARY | 2024-12-12 00:20 | XMS_ITS | Encounter Summary ---
Author Organization [place] Address [address] [place] [address]. [place] [address] Care Team Providers Care Protection Manager Name Role Phone Wilber Vidales MD Primary Care Provider [phone] Stephie Mahoney MD Unavailable [phone] Federica Foster RN Unavailable [phone] Unavailable [phone] Stephie Mahoney MD Unavailable +[phone] Olga Garcia RN Unavailable +[phone] Junior Chavira MD Unavailable [phone] Shantel Walker MD Unavailable [phone] Junior Chavira MD Unavailable [phone] Coni Dhaliwal CNP Unavailable [phone] Anel Long NP Unavailable [phone] Encounter Details Date Type Department Care Team (Late st Contact Info) Description 12/04/[address] 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 Laboratory [address] [place] [phone] 12/23/2024 4:00 PM CDT Office Visit [address] [phone] Cyrus Aleman MD [address] [place] [address] 123095 01/27/2025 10:00 AM CDT Office Visit [facility] Neurology Clinic [address] [place] [address] Anel Long UPPER LEATHER SORTER [address] [place] [address] Coni Dhaliwal, ACETONE RECOVERY WORKER [address] [place] [address]75 04/14/2025 11:15 AM CDT Office Visit [facility] Heart [facility] [address] [facility] [address] [place] [phone] Inessa Esteves DO [address] [place] 4[address] 06/05/2025 12:30 PM CDT Office Visit [facility] End[facility]ology [facility] [address] [phone] Stephie Mahoney MD [address] [place] [address] 108645 11/13/2025 11:00 AM CDT Virtual Visit [facility]ology [facility] [address] [phone] Stephie Mahoney MD [address] [place] [address] 959825 Scheduled Orders Name Type Priority Associated Diagnoses [...] study documented in this encounter Care Teams Protection Manager Relationship Specialty [place] [address] [place] [address] PCP - General Family Practice 11/21/16 Stephie Mahoney MD [address] [place] [address] Endocrinology, Diabetes, and Metabolism 04/22/21 Federica Foster, RN [address] [place] [address] Upper Leather Sorter Diabetes Education 04/22/[address] [place] [address] Upper Leather Sorter Nutrition 04/22/21 Stephie Mahoney MD [address] [place] [address] Assigned Endocrinology Provider 05/08/21 Olga Garcia RN Specialty Clerk Secretary INTERNAL MEDICINE - ENDOCRINOLOGY, DIABETES & METABOLISM 09/29/22 Junior Chavira MD [address] [place] [address] Cardiovascular Disease 05/29/24 [place] [address] [place] [address] Assigned PCP 07/12/24 Junior Chavira MD [address] [place] 603125 Assigned Heart and Vascular Provider 08/11/24 Coni Dhaliwal CNP [address] [place] [address]124[address] Nurse Practitioner Psychiatry & Neurology Vascular Neurology 11/04/24 Anel Long NP [address] [place] 139375 Nurse Practitioner Psychiatry & Neurology Vascular Neurology 11/04/24 documented as of this encounter
--- OUTSIDE RECORDS SUMMARY | 2024-12-12 00:20 | XMS_ITS | Encounter Summary ---
Author Organization [place] Address [address] [place] [address]. [place] [address] Care Team Providers Care Learning Operations Specialist Name Role Phone Wilber Vidales MD Primary Care Provider [phone] Stephie Mahoney MD Unavailable [phone] Federica Foster RN Unavailable [phone] Unavailable [phone] Stephie Mahoney MD Unavailable [phone] Olga Garcia RN Unavailable [phone] Junior Chavira MD Unavailable [phone] Shantel Walker MD Unavailable [phone] Junior Chavira MD Unavailable [phone] Coni Dhaliwal CNP Unavailable [phone] Anel Long NP Unavailable [phone] Encounter Details Date Type Department Care [...] often do you attend chur ch or holiness services? 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 Gender Identity Male 03/03/2019 9:24 PM CDT Sexual Orientation Straight 03/03/2019 9: 24 PM CDT documented as of this encounter Plan of Treatment Upcoming Encounters Date Type Department Care Team (Late st Contact Info) Description 12/17/2024 9:30 AM CDT Lab [facility] Laboratory [address] [place] [address] 12/23/2024 4:00 PM CDT Office Visit [place] [address] [place] [address] Cyrus Aleman MD [address] [place] [address] 01/27/2025 10:00 AM CDT Office Visit [facility] Neurology [address] [place] [address] Anel Long, FINGERNAIL FORMER [address] [place] [address] Coni Dhaliwal, COREY [address] [place] [address]135 04/14/2025 11:15 AM CDT Office Visit [facility] Heart [facility] [address] [facility] [address] [place] [phone] Inessa sEteves DO [address] [place] [address]05 06/05/2025 12:30 PM CDT Office Visit [facility] Endocrinology Clinic [address] [phone] Stephie Mahoney MD [address] [place] [address] 11/13/2025 11:00 AM CDT Virtual Visit [facility] Endocrinology [address] [phone] Stephie Mahoney MD [address] [place] [address] 808645 documented as of this encounter Visit Diagnoses Not on filedocumented in this encounter Care Teams Learning Operations Specialist Relationship Specialty [place] [address] [place] [address] PCP - General Family Practice 11/21/16 Stephie Mahoney MD [address] 883475 Endocrinology, Diabetes, and Metabolism 04/22/21 Federica Foster, RN 420 [place], [place] 953285 Horse Racing Manager Diabetes Education 04/22/[address] [place] [address] 523434 Horse Racing Manager Nutrition 04/22/21 Stephie Mahoney MD [address] [place] [address] 282075 Assigned Endocrinology Provider 05/08/21 Olga Garcia RN Specialty Blackjack Supervisor INTERNAL MEDICINE - ENDOCRINOLOGY, DIABETES & METABOLISM 09/29/22 Junior Chavira MD [address] [place] [address] Cardiovascular Disease 05/29/24 [place] [address] [place] [address] Assigned PCP 07/12/24 Junior Chavira MD [address] [place] 119065 Assigned Heart and Vascular Provider 08/11/24 Coni Dhaliwal, ROTOR BALANCER [address] [place] [address] Nurse Practitioner Psychiatry & Neurology Vascular Neurology 11/04/24 Anel Long NP [address] [place] [address] Nurse Practitioner Psychiatry & Neurology Vascular Neurology 11/04/24 documented as of this encounter
--- OUTSIDE RECORDS SUMMARY | 2024-12-12 00:21 | XMS_ITS | Encounter Summary ---
Author Organization [place] Address [address] [place] [address]. [place] [address] Care Team Providers Care Seo Consultant Name Role Phone Wilber Vidales MD Primary Care Provider [phone] Stephie Mahoney MD Unavailable [phone] Federica Foster RN Unavailable [phone] Unavailable [phone] Stephie Mahoney MD Unavailable [phone] Olga Garcia RN Unavailable [phone] Junior Chavira MD Unavailable [phone] Shantel Walker MD Unavailable [phone] Junior Chavira MD Unavailable [phone] Coin Dhaliwal CNP Unavailable [phone] Anel Long NP Unavailable [phone] Encounter Details Date Type Department Care Team (Late st Contact Info) Description 12/03/2024 8:15 AM CDT Lab [facility] [address] [place] [address] Type 1 diabetes mellitus with hyperglycemia [...] How often do you attend chur or hoahaoism services? 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 [address] [facility] [address] [place] [phone] Cyrus Aleman MD [address] [place] [address] 01/27/2025 10:00 AM CDT Office Visit [facility] Neurology [facility] [address] [place] [address] [address] [place] [phone] Anel Long, MAKE READY MECHANIC [address] [place], [place] [address] Coni Dhaliwal, RHIT [address] [facility] 450 [place], [place] [address] 04/14/2025 11:15 AM CDT Office Visit [facility] Heart [facility] [address] [facility] [address] [place] [phone] Inessa Esteves, [address] [place], [place] [address] 06/05/2025 12:30 PM CDT Office Visit [facility] Endocrinology Clinic [address] [address] Stephie Mahoney MD [address] [place] [address] 997305 11/13/2025 11:00 AM CDT Virtual Visit [facility] Endocrinology [address] [address] Stephie Mahoney MD [address] [place] [place] [address] 655025 documented as of this encounter Procedures Procedure [...] control, and institution of therapy with an ywnnfppqfmc-lhnieioxtw-wzuumv (JOANA) inhibitor (if the patient can tolerate it). Urine URINE SPECIMEN / Unknown Non-blood Collection / Unknown 12/03/2024 8:41 AM CDT 12/03/2024 8:41 AM CDT us Stephie Mahoney MD LAB - URINE ORDERABLES Final Result U LABORATORY [facility] [place] [facility] 500 [facility], Room [address] * Tissue transglutaminase mike IgA and [...] Final Result SPECIALTY CORE/PROT/ENDO Specialty Core/Prot/Endo 500 [facility], Room [address] * (ABNORMAL) Hemoglobin A1c (12/03/2024 8:21 [...] LAB - BLOOD ORDERABLES Final Result LABORATORY [facility] [place] Lab [address] [facility] (no room number, 1st floor of clinic) [place] [address], [facility] * (ABNORMAL) Basic metabolic panel [...] - BLOOD ORDERABLES Final Result U[facility] LABORATORY [facility] 500 [facility], Room [address] [place] [address] * Lipid Profile (12/03/2024 8:21 AM CDT) [...] BLOOD ORDERABLES Final Result Performing Organization Address [facility] Co de Phone Number U LABORATORY [facility] [place] [facility] 500 [facility], Room [address] * (ABNORMAL) TSH (12/03/2024 8:21 AM CDT) TSH 6.21(H) 0.30 - 4.20 uIU/mL 12/03/2024 3:17 PM CDT [facility] LABORATORY Blood BLOOD SPECIMEN / Unknown Venipuncture / Unknown 12/03/2024 8:21 AM CDT 12/03/2024 8:21 AM CDT us Stephie Mahoney MD LAB - BLOOD ORDERABLES Final Result Performing Organization Address [facility] de Phone Number U LABORATORY [facility] [place] [facility] 500 [facility], Room [address] [id number] * 25 Hydroxyvitamin D2 and D3 [...] intake, and treatment affect the concentration of 91-pmgcmzw-Isvsfcn D. Values may decrease during winter months [...] and its performance characteristics determined by the [facility], Special Chemistry Laboratory. It has not been cleared or approved by the FDA. The laboratory is regulated under CLIA as qualified to perform high-complexity testing. This test is used for clinical purposes. It should not be regarded as investigational or for research. Stephie Mahoney MD LAB - BLOOD ORDERABLES Final Result [facility] SPECIAL DRUG/[facility] Special Drug/BGEN 500 [facility], Room [address] [phone] documented in this encounter Visit Diagnoses Diagnosis Type 1 diabetes mellitus with hyperglycemia (H) Type I (juvenile type) diabetes mellitus without mention of complication, not stated as uncontrolled documented in this encounter Care Teams Seo Consultant Relationship Specialty [place] [address] [place] [address] PCP - General Family Practice 11/21/16 Stephie Mahoney MD [address] [address] Endocrinology, Diabetes, and Metabolism 04/22/21 Federica Foster, RN 420 [place] [address] Poultry Culler Diabetes Education 04/22/[address] [place] [address] Poultry Culler Nutrition 04/22/21 Stephie Mahoney MD 420 [facility] 101 [place], [place] [address] Assigned Endocrinology Provider 05/08/21 Olga Garcia, RN Specialty Women'S Basketball Coach INTERNAL MEDICINE - ENDOCRINOLOGY, DIABETES & METABOLISM 09/29/22 Junior Chavira MD [address] [place] [address] Cardiovascular Disease 05/29/24 [place] [address] [place] [address] Assigned PCP 07/12/24 Junior Chavira MD [address] [place], [place] [address] Assigned Heart and Vascular Provider 08/11/24 Coni Dhaliwal, COREY [address] [place] 494[address] Nurse Practitioner Psychiatry & Neurology Vascular Neurology 11/04/24 Anel Long NP [address] [place] [address] Nurse Practitioner Psychiatry & Neurology Vascular Neurology 11/04/24 documented as of this encounter
--- OUTSIDE RECORDS SUMMARY | 2024-12-12 00:21 | XMS_ITS | Encounter Summary ---
Author Organization [place] Address [address] [place] [address]. [place] [address] Care Team Providers Care Concrete Bucket Hooker Name Role Phone Wilber Vidales MD Primary Care Provider [phone] Stephie Mahoney MD Unavailable [phone] Federica Foster RN Unavailable [phone] Unavailable [phone] Stephie Mahoney MD Unavailable +[phone] Olga Garcia RN Unavailable [phone] Junior Chavira MD Unavailable [phone] Shantel Walker MD Unavailable [phone] Junior Chavira MD Unavailable [phone] Coni Dhaliwal CNP Unavailable [phone] Anel Long NP Unavailable [phone] Encounter Details Date Type Department Care Team (Late st Contact Info) Description 12/01/2024 Telephone [facility] Endocrinology Clinic [place] [address] [facility] [address] 3rd [place] [address] Stephie Mahoney MD 420 [facility] 101 [place] [address] Social History Tobacco Use Types [...] often do you attend chur ch or congregational services? 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 Gender Identity Male 03/03/2019 9:24 PM [...] Info) Description 12/17/2024 9:30 AM CDT Lab [facility] Laboratory [address] [place] [phone] 12/23/2024 4:00 PM CDT Office Visit [address] [phone] Cyrus Aleman MD [address] [place] [address] 129215 01/27/2025 10:00 AM CDT Office Visit [facility] Neurology Clinic [address] [place] [phone] Anel Long NP [address] [place] [address] Coni Dhaliwal, COREY [address] [place] [address]85 04/14/2025 11:15 AM CDT Office Visit [facility] Heart [facility] [address] [facility] [address] [place] [address] Inessa Esteves DO [address] [place] [address] 06/05/2025 12:30 PM CDT Office Visit [facility] Endocrinology [address] [phone] Stephie Mahoney MD [address] [place] [address] 067135 11/13/2025 11:00 AM CDT Virtual Visit [facility] Endocrinology [address] [phone] Stephie Mahoney MD [address] 175035 documented as of this encounter Visit Diagnoses Not on filedocumented in this encounter Care Teams Concrete Bucket Hooker Relationship Specialty [place] [address] [place] [address] PCP - General Family Practice 11/21/16 Stephie Mahoney MD [address] [place] [address] Endocrinology, Diabetes, and Metabolism 04/22/21 Federica Foster, RN [address] [place] [address] Able Bodied Tankerman Diabetes Education 04/22/[address] [place] [address] Able Bodied Tankerman Nutrition 04/22/21 Stephie Mahoney MD [address] [place] [address] Assigned Endocrinology Provider 05/08/21 Olga Garcia RN Specialty Director Sales Training INTERNAL MEDICINE - ENDOCRINOLOGY, DIABETES & METABOLISM 09/29/22 Junior Chavira MD [address] [place] [address]75 Cardiovascular Disease 05/29/24 [place] [address] [place] [address] Assigned PCP 07/12/24 Junior Chavira MD [address] [place] [address] Assigned Heart and Vascular Provider 08/11/24 Coni Dhaliwal, EDUCATIONAL DIAGNOSTICIAN [address] [place] [address] Nurse Practitioner Psychiatry & Neurology Vascular Neurology 11/04/24 Anel Long NP [address] [place] [place] [address] Nurse Practitioner Psychiatry & Neurology Vascular Neurology 11/04/24 documented as of this encounter
--- OUTSIDE RECORDS SUMMARY | 2024-12-12 00:21 | XMS_ITS | Encounter Summary ---
Author Organization [place] Address [address] [place] [address]. [place] [address] Care Team Providers Care Webbing Weaver Name Role Phone Wilber Vidales MD Primary Care Provider [phone] Stephie Mahoney MD Unavailable [phone] Federica Foster RN Unavailable +[phone] Unavailable +[phone] Stephie Mahoney MD Unavailable [phone] Olga Garcia RN Unavailable [phone] Junior Chavira MD Unavailable [phone] Shantel Walker MD Unavailable +[phone] Junior Chavira MD Unavailable [phone] Coni Dhaliwal CNP Unavailable [phone] Anel Long NP Unavailable [phone] Angel Balbuena MD Unavailable [phone] Encounter Details Date Type Department Care Team (Late st Contact Info) Description 12/09/2024 [facility] Medical Advice [facility] Endocr[facility]ology Clinic [address] 3rd [place] [address] Rebecca Harvey, RN Social History [...] How often do you attend chur or jewish services? 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 Gender Identity Male 03/03/2019 9:24 PM CDT Sexual Orientation Straight 03/03/2019 9: 24 PM CDT documented as of this encounter Plan of Treatment Upcoming Encounters Date Type Department Care Team (Late st Contact Info) Description 12/17/2024 9:30 AM CDT [place] [id number] [place] [phone] 12/23/2024 4:00 PM CDT Office Visit [facility] 6545 [facility] 450 [place] [phone] Cyrus Aleman MD [address] [place] [address] 01/27/2025 10:00 AM CDT Office Visit [facility] Neurology Clinic [place] 1650 [facility] 200 [place] [phone] Anel Long, SMOKEHOUSE WORKER 2970 [facility] [place] [place], [place] [address] Coni Dhaliwal, COREY 1545 [facility] 450 [place], [place] [address] 04/14/2025 11:15 AM CDT Office Visit [facility] Heart [facility] [address] [facility] [address] [place] [phone] Inessa Esteves DO 6405 [facility] [address] [place], [place] [address] 06/05/2025 12:30 PM CDT Office Visit [facility] Endocrinology Clinic [address] [phone] Stephie Mahoney MD [address] 795535 11/13/2025 11:00 AM CDT Virtual Visit [facility] Endocrinology Clinic [address] [phone] Stephie Mahoney MD [address] 562205 documented as of this encounter Visit Diagnoses Not on filedocumented in this encounter Care Teams Webbing Weaver Relationship Specialty [place] [address] [place] [address] PCP - General Family Practice 11/21/16 Stephie Mahoney MD [address] [place] [address] Endocrinology, Diabetes, and Metabolism 04/22/21 Federica Foster RN [address] [place] [address] [id number] Hog Driver Diabetes Education 04/22/[address] [place] [address] Hog Driver Nutrition 04/22/21 Stephie Mahoney MD [address] [place] [address] Assigned Endocrinology Provider 05/08/21 Olga Garcia RN Specialty Traffic Technician INTERNAL MEDICINE - ENDOCRINOLOGY, DIABETES & METABOLISM 09/29/22 Junior Chavira MD [address] [place] [address] Cardiovascular Disease 05/29/24 [place] [address] [place] [address] Assigned PCP 07/12/24 Junior Chavira MD [address] [place], [place] 425[address] Assigned Heart and Vascular Provider 08/11/24 Coni Dhaliwal, COREY [address] [place] 020125 Nurse Practitioner Psychiatry & Neurology Vascular Neurology 11/04/24 Anel Long NP [address] 253275 Nurse Practitioner Psychiatry & Neurology Vascular Neurology 11/04/24 Angel Balbuena MD [address] [place], [place] 052385 Assigned Heart and Vascular Surgical Provider 12/10/24 documented as of this encounter
--- OUTSIDE RECORDS SUMMARY | 2024-12-12 00:22 | XMS_ITS | Encounter Summary ---
Author Organization [place] Address [address] [place] [address]. [place] [address] Care Team Providers Care Waste Elimination Name Role Phone Wilber Vidales MD Primary Care Provider [phone] Stephie Mahoney MD Unavailable [phone] Federica Foster RN Unavailable [phone] Unavailable [phone] Stephie Mahoney MD Unavailable [phone] Olga Garcia RN Unavailable [phone] Junior Chavira MD Unavailable [phone] Shantel Walker MD Unavailable [phone] Junior Chavira MD Unavailable [phone] Coni Dhaliwal CNP Unavailable [phone] Anel Long NP Unavailable [phone] Encounter Details Date Type Department Care Team (Late st Contact Info) Description 12/05/2024 Telephone [facility] Endocrinology Clinic [place] 909 [facility] [address] 3rd [place] [address] Stephie Mahoney MD 420 [facility] 101 [place] [address] Social History Tobacco Use Types [...] Answer Date Recorded PHQ-2 Score 0 11/14/2024 [facility] of Occupat ional Health - Occupational Stress [...] AM CDT 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 Gender Identity Male 03/03/2019 9:24 PM [...] Info) Description 12/17/2024 9:30 AM CDT Lab [facility] Laboratory [address] [place] [phone] 12/23/2024 4:00 PM CDT Office Visit [facility] 6545 [facility] [address] [place] [phone] Cyrus Aleman MD [address] [place] [address] 189135 01/27/2025 10:00 AM CDT Office Visit [facility] Neurology [facility] [address] [place] [address] [address] [place] [phone] Anel Long, CERTIFIED CAREGIVER [address] [place], [place] [address] Coni Dhaliwal, VOICE PATHOLOGIST [address] [facility] 450 [place], [place] [address] 04/14/2025 11:15 AM CDT Office Visit [facility] Heart [facility] [address] [facility] [address] [place] [phone] Inessa Esteves DO [address] [place], [place] [address] 06/05/2025 12:30 PM CDT Office Visit [facility] Endocrinology [facility] 909 [facility] 3rd [place] [phone] Stephie Mahoney MD [address] [place] [address] [place] [address] 11/13/2025 11:00 AM CDT Virtual Visit [facility] Endocrinology Clinic [place] 303869 [facility] 3rd [place] [phone] Stephie Mahoney MD [address] [phone] documented as of this encounter Visit Diagnoses Not on filedocumented in this encounter Care Teams Waste Elimination Relationship Specialty [place] [address] [place] [address] PCP - General Family Practice 11/21/16 Stephie Mahoney MD [address] [place] [address] Endocrinology, Diabetes, and Metabolism 04/22/21 Federica Foster RN 420 [place], [place] 935035 Harvest Worker Field Crop Diabetes Education 04/22/[address] [place] [address] 706004 Harvest Worker Field Crop Nutrition 04/22/21 Stephie Mahoney MD [address] [place] [address] Assigned Endocrinology Provider 05/08/21 Olga Garcia, RN Specialty Healthcare Business Analyst INTERNAL MEDICINE - ENDOCRINOLOGY, DIABETES & METABOLISM 09/29/22 Junior Chavira MD [address] [place] [address] Cardiovascular Disease 05/29/24 [place] [address] [place] [address] Assigned PCP 07/12/24 Junior Chavira MD [address] [place] [id number] Assigned Heart and Vascular Provider 08/11/24 Coni Dhaliwal, VOICE PATHOLOGIST [address] [place] 436655 Nurse Practitioner Psychiatry & Neurology Vascular Neurology 11/04/24 Anel Long NP [address] 775195 Nurse Practitioner Psychiatry & Neurology Vascular Neurology 11/04/24 documented as of this encounter
--- OUTSIDE RECORDS SUMMARY | 2024-12-12 00:22 | XMS_ITS | Encounter Summary ---
Author Organization [place] Address [address] [place] [address]. [place] [address] Care Team Providers Care Airplane Rigger Name Role Phone Wilber Vidales MD Primary Care Provider [phone] Stephie Trevizo MD Unavailable [phone] Federica Foster RN Unavailable [phone] Unavailable [phone] Stephie Trevizo MD Unavailable [phone] Olga Garcia RN Unavailable [phone] Junior Chavira MD Unavailable [phone] Shantel Walker MD Unavailable [phone] Junior Chavira MD Unavailable [phone] Coni Dhaliwal CNP Unavailable [phone] Anel Long NP Unavailable [phone] Encounter Details Date Type Department Care Team (Late st Contact Info) Description 12/09/2024 Telephone [facility] Endocrinology Clinic [place] 909 [facility] [address] 3rd [place] [address] Stephie Trevizo MD 420 [facility] 101 [place] [address] Social History Tobacco Use Types [...] often do you attend chur ch or mu-ism services? 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 Values may decrease during winter months [...] pressure control, and institution of therapy withan eskwgdxcazb-jionnrywcp-kjmlxg (JOANA) inhibitor (if the patient can tolerate [...] Description 12/17/2024 9:[address] [facility] Laboratory [address] [place] [address] 12/23/2024 4:00 PM CDT Office Visit [facility] 6545 [facility] 450 [place] [address] Cyrus Aleman MD [address] [place] [address] 891515 01/27/2025 10:00 AM CDT Office Visit [facility] Neurology [facility] [address] [place] [address] 200 [place] [phone] Anel Long, VIDEO MACHINES MECHANIC [address] [place], [place] [address] Coni Dhaliwal, AUTOMATION DRIVER 6545 [facility] 450 [place], [place] [address] 04/14/2025 11:15 AM CDT Office Visit [facility] Heart [facility] [address] [facility] [address] [place] [phone] Inessa Esteves DO [address] [place], [place] [address] 06/05/2025 12:30 PM CDT Office Visit [facility] Endocrinology [facility] [address] [phone] Stephie Trevizo MD [address] [place] [address] 11/13/2025 11:00 AM CDT Virtual Visit [facility] [address] 3rd [place] [phone] Stephie Trevizo MD [address] [place] [address] Scheduled Orders Name Type Priority Associated Diagnoses [...] study documented in this encounter Care Teams Airplane Rigger Relationship Specialty [place] [address] [place] [address] PCP - General Family Practice 11/21/16 Stephie Trevizo MD [address] [place] [address] Endocrinology, Diabetes, and Metabolism 04/22/21 Federica Foster, RN [address] [place] [address] Financial Services Associate Diabetes Education 04/22/[address] [place] [address] Financial Services Associate Nutrition 04/22/21 Stephie Trevizo MD [address] [place] [address] 101 [place] [address] Assigned Endocrinology Provider 05/08/21 Olga Garcia, RN Specialty Framing Manager INTERNAL MEDICINE - ENDOCRINOLOGY, DIABETES & METABOLISM 09/29/22 Junior Chavira MD [address] [place] [id number] Cardiovascular Disease 05/29/24 [place] [address] [place] [address] Assigned PCP 07/12/24 Junior Chavira MD [address] [place] 146755 Assigned Heart and Vascular Provider 08/11/24 Coni Dhaliwal CNP [address] [place] 123115 Nurse Practitioner Psychiatry & Neurology Vascular Neurology 11/04/24 Anel Long NP [address] 581035 Nurse Practitioner Psychiatry & Neurology Vascular Neurology 11/04/24 documented as of this encounter
--- OUTSIDE RECORDS SUMMARY | 2024-12-12 00:22 | XMS_ITS | Encounter Summary ---
Author Organization [place] Address [address] [place] [address]. [place] [address] Care Team Providers Care Frequency Checker Name Role Phone Wilber Vidales MD Primary Care Provider [phone] Stephie Mahoney MD Unavailable +[phone] Federica Foster RN Unavailable [phone] Unavailable [phone] Stephie Mahoeny MD Unavailable [phone] Olga Garcia RN Unavailable +[phone] Junior Chavira MD Unavailable [phone] Shantel Walker MD Unavailable [phone] Junior Chavira MD Unavailable [phone] Coni Dhaliwal MARKETING DATABASE CONSULTANT Unavailable +[phone] Anel Long NP Unavailable Angel Balbuena MD Unavailable [phone] Encounter Details Date Type Department Care Team (Late st Contact Info) Description 12/09/2024 [facility] Medical [facility] Endocrinology Clinic [place] 884139 [facility] 3rd [place] [address] Stephie Mahoney MD 420 [facility] 101 [place] [address] Social History Tobacco Use Types Packs/Day Years [...] How often do you attend chur or jainism services? 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 Neurology [facility] [address] [place] [address] 200 [place] [phone] Anel Long, INTERNAL RECRUITER [address] [facility] [place] [place] [address] Coni Dhaliwal, COREY 6474 [facility] 450 [place], [place] [address] 04/14/2025 11:15 AM CDT Office Visit [facility] Heart [facility] [address] [facility] [address] [place] [phone] Inessa Esteves DO 6405 [facility] [address] [place], [place] [address] 06/05/2025 12:30 PM CDT Office Visit [facility] Endocrinology [address] [phone] Stephie Mahoney MD [address] [place] [address] 009805 11/13/2025 11:00 AM CDT Virtual Visit [facility] Endocrinology [address]rd [place] [address] Stephie Mahoney MD [address] [place] [address] [place] [address] documented as of this encounter Visit Diagnoses Not on filedocumented in this encounter Care Teams Frequency Checker Relationship Specialty [place] [address] [address] [place] [address] PCP - General Family Practice 11/21/16 Stephie Mahoney MD [address] [place] [address] Endocrinology, Diabetes, and Metabolism 04/22/21 Federica Foster RN [address] [place] [address] 593125 Toll Line Repairer Diabetes Education 04/22/[address] [place] [address] Toll Line Repairer Nutrition 04/22/21 Stephie Mahoney MD [address] [place] [address] Assigned Endocrinology Provider 05/08/21 Olga Garcia RN Specialty Show Card Letterer INTERNAL MEDICINE - ENDOCRINOLOGY, DIABETES & METABOLISM 09/29/22 Junior Chavira MD [address] [place] 484995 Cardiovascular Disease 05/29/24 [place] [address] [place] [address] Assigned PCP 07/12/24 Junior Chavira MD [address] [place] [address] Assigned Heart and Vascular Provider 08/11/24 Coni Dhaliwal, MARKETING DATABASE CONSULTANT [address] [place] [address] Nurse Practitioner Psychiatry & Neurology Vascular Neurology 11/04/24 Anel Long NP [address] [address] Nurse Practitioner Psychiatry & Neurology Vascular Neurology 11/04/24 Angel Balbuena MD [address] [place] [address] Assigned Heart and Vascular Surgical Provider 12/10/24 documented as of this encounter
--- OUTSIDE RECORDS SUMMARY | 2024-12-12 00:22 | XMS_ITS | Clinical Summary ---
Author Organization [place] Address [address] [place] [address]. [place] [address] Care Team Providers Care Superintendent Laundry Name Role Phone Wilber Maharaj MD Primary Care Provider [phone] Stephie Mahoney MD Unavailable Federica Foster RN Unavailable Tova Welch RD Unavailable [phone] Stephie Mahoney MD Unavailable Olga Garcia RN Unavailable [phone] Junior Chavira MD Unavailable [phone] Shantel Walker MD Unavailable [phone] Junior Chavira MD Unavailable Coni Dhaliwal ZOO KEEPER Unavailable [phone] Anel Denson NP Unavailable [phone] Angel Balbuena MD Unavailable [phone] Allergies Active Allergy Reactions Criticality Noted [...] 10/12/24 Omnipod BASAL RATES and times: Continuous (2894-8700: 0.9 units/hour CARB RATIO and times: 4285-1716: 1 unit for 10g of carbohydrates Corection Factor (Sensitivity) and times: 6528-1795: 1 unit lowers BG by 40 mg/dL [...] atrial fibrillation 07/14/2019 Aortic valve replaced 07/14/2019 [facility]DC current use of anticoagulant therapy 1 09/10/2018 Status post coronary angiogram 06/18/2019 Abnormal findings diagnostic imaging of heart and coronary circulation 06/12/2019 Overview (06/12/2019): Added automatically from request for surgery [id number] ESCALONA (dyspnea on exertion) 04/28/2019 History of [...] Type Department Care Team Description 12/09/2024 Telephone [facility] [address] [phone] Rebecca Harvey RN 12/09/2024 MyC Medical Advice [facility] [address] [phone] Rebecca Harvey, RN 12/09/2024 MyC Medical Advice [facility] [address] [phone] Rebecca Harvey, RN 12/09/2024 MyC Medical Advice [facility] [address] [phone] Stephie Mahoney MD 12/09/2024 Telephone [facility] [address] [phone] Stephie Mahoney MD 12/05/2024 [facility] Endocrinology Clinic [address] [phone] Stephie Mahoney MD 12/05/2024 MyC Medical Advice [facility]ocr[facility]ology [address] [phone] Olga Garcia, RN 12/05/2024 [facility] Endocrinology Clinic [address] [phone] Olga Garcia, intelligence group supervisor Medication Clarification 12/04/2024 [facility] Endocrinology [address] [phone] Stephie Mahoney MD 12/03/2024 8:15 AM CDT Lab [facility] Laboratory [address] [place] [address] Type 1 diabetes mellitus with hyperglycemia (H) 12/03/2024 Travel 12/01/2024 10:00 AM CDT Oncology Visit [facility] [address] [place] [address] [facility] [place] [phone] Angel Balbuena MD Pleural effusion (Primary Dx) 12/01/2024 [facility] Endocrinology Clinic [address] [phone] Stephie Mahoney MD 12/01/2024 [facility]ocr[facility]ology Clinic [address] [phone] Stephie Mahoney MD 12/01/2024 Travel 11/30/2024 MyC Medical Advice [facility] Endocrinology [address] [phone] Stephie Mahoney MD 11/28/2024 1:20 PM CDT - 11/28/2024 11:59 PM CDT Hospital Encounter [facility] Imaging [address] [facility] [address] [place] [phone] Angel Balbuena MD Pneumonia of both lower lobes due to infectious organism Discharge Disposition: Home or Self Care 11/28/2024 Travel 11/26/2024 Travel 11/20/2024 MyC Medical Advice [facility]ology [address] [phone] Dinah Velazquez 11/20/2024 Telephone [facility] [address] [phone] Stephie Mahoney MD Insulin Lantusletter mailed out 11/17/2024 Orders Only (auto-released) [place] [address] [facility] [address] [place] [place] [phone] Anel Denson, TARIK 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 of right middle cerebral artery (H) 11/14/2024 11:30 AM CDT Virtual Visit [facility] [address] [phone] Stephie Mahoney MD Type 1 diabetes mellitus with hyperglycemia (H) (Primary Dx); Elevated glucose 11/14/2024 Refill [facility] [address] [phone] Olga Garcia RN Refill Request 11/07/2024 Telephone [facility] [address] [place] [address] Wilber Maharaj MD Home Care/Hospice 11/05/2024 Documentation Only [facility] Anticoagulation [facility] [address] [place] [address] Kevin Marie RN Direct Oral Anticoagulant 11/03/2024 Telephone [facility] [address] [place] [address] Wilber Maharaj MD eliquis oral tablet 5 mg 10/29/2024 2:37 PM CDT - 11/04/2024 1:16 PM CDT Hospital Encounter [facility] [address] [phone] Finn Monroe DO Hsiao, Wei-Han Wayne, MD Ischemic stroke (H) (Primary Dx); 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 of right middle cerebral artery (H) Discharge Disposition: Home-Health Care [facility] 10/28/2024 Orders Only [facility] Services - Surgical Specialties Service Line [address] [place] [phone] Angel Balbuena MD Pneumonia of both lower lobes due to infectious organism (Primary Dx) 10/20/2024 Telephone [facility] [address] [phone] Stephie Mahoney MD Clinic Care Coordination - Follow-up (Re schedule) 10/20/2024 MyC Medical Advice [facility]ocrinology [address] [phone] Dinah Velazquez 10/12/2024 10:41 AM YARD OPERATOR - 10/29/2024 2:00 PM CDT Hospital Encounter [place] [address] [facility] [address] [place] [phone] Wilber Ndiaye MD Padniewski, Jessica, DO Pneumonia [...] How often do you attend chur or mormonism services? More than 4 times [...] Answer Date Recorded PHQ-2 Score 0 11/14/2024 [employer] [place] [facility] - Occupational Stress Questionnaire Answer Date [...] AM CDT Legal Sex Male 3:40 AM YARD OPERATOR Gender Identity Male 03/03/2019 9:24 PM [...] Lab [facility] [address] [place] [phone] 12/23/2024 4:00 PM CDT Office Visit [place] [address] [place] [phone] Cyrus Aleman MD [address] [place], [place] [address] 01/27/2025 10:00 AM CDT Office Visit [facility] Neurology [facility] [address] [place] [phone] Anel Denson, FIXED INCOME TRADING VICE PRESIDENT [address] [facility] [place] [id number] Coni Dhaliwal, ZOO KEEPER [address] [place], [place] [id number] 04/14/2025 11:15 AM CDT Office Visit [facility] [address] [facility] [address] [place] [phone] Inessa Esteves, [address] [place], [place] [address] 06/05/2025 12:30 PM CDT Office Visit [facility] [address] [phone] Stephie Mahoney MD [address] [id number] 11/13/2025 11:00 AM CDT Virtual Visit [facility] End[facility]ology [address] [phone] Stephie Mahoney MD [address] [address] Health Maintenance Due Date Last [...] SCREEN Discontinued Medical Devices Implanted Type Area Engine Repairer Production Device Identifier Shelf Expiration Date Model / Serial / Lot Lead Artirial Pacing Temporary 53cm [id number] Implanted:Qty : 1 on 07/04/2019 by Ej Haines MD at [facility] Leads [employer] Pa [id number] / / Imp Kit Suture Cor-Knot Mini 4x14mm [id number] Implanted:Qty : 1 on 07/04/2019 by Ej Haines MD at [facility] Metallic Hardware/Anc hor [employer] [id number] / / Valve Aortic Perimount Magna-Ease Bioprosth 23mm [id number] Implanted:Qty : 1 on 07/04/2019 by Ej Haines MD at [facility] Valve N/A: Heart [employer] 01/29/2023 [id number] / [id number] / Device [place]ess Endo Cor Knot Quick Load Reload [id number] Implanted:Qty : 1 on 07/04/2019 by Ej Haines MD at [facility] Wire [employer] [id number] / / Procedures Procedure Name Priority Date/Time [...] both lower lobes due to infectious organism HI GLUCOSE MONITOR, 72 HOUR, PHYS INTERP & [...] GLUCOSE BY METER Routine 10/26/2024 1:48 AM YARD OPERATOR GLUCOSE BY METER Routine 10/25/2024 9:30 PM YARD OPERATOR GLUCOSE BY METER Routine 10/25/2024 6:10 PM YARD OPERATOR GLUCOSE BY METER Routine 10/25/2024 12:4 1 PM YARD OPERATOR GLUCOSE BY METER Routine 10/25/2024 8:19 AM YARD OPERATOR EXTRA PURPLE TOP TUBE Routine 10/25/2024 7:13 AM YARD OPERATOR EXTRA TUBE Routine 10/25/2024 7:13 AM YARD OPERATOR PHOSPHORUS Routine 10/25/2024 7:13 AM YARD OPERATOR MAGNESIUM Routine 10/25/2024 7:13 AM YARD OPERATOR GLUCOSE BY METER Routine 10/25/2024 1:08 AM YARD OPERATOR GLUCOSE BY METER Routine 10/24/2024 9:19 PM YARD OPERATOR GLUCOSE BY METER Routine 10/24/2024 6:23 PM YARD OPERATOR CRP INFLAMMATION Routine 10/24/2024 1:33 PM YARD OPERATOR GLUCOSE BY METER Routine 10/24/2024 1:0 9 PM YARD OPERATOR GLUCOSE BY METER Routine 10/24/2024 9:41 AM YARD OPERATOR GLUCOSE BY METER Routine 10/24/2024 8:15 AM YARD OPERATOR EXTRA PURPLE TOP EDTA (LAB USE ONLY) Routine 10/24/2024 6:25 AM YARD OPERATOR MAGNESIUM Routine 10/24/2024 6:25 AM YARD OPERATOR PHOSPHORUS Routine 10/24/2024 6:25 AM YARD OPERATOR GLUCOSE BY METER Routine 10/24/2024 6:10 AM YARD OPERATOR GLUCOSE BY METER Routine 10/24/2024 2:11 AM YARD OPERATOR GLUCOSE BY METER Routine 10/23/2024 9:[address] CHEST W/O CONTRAST Routine 10/23/2024 8:29 PM YARD OPERATOR GLUCOSE BY METER Routine 10/23/2024 5:[address] HEAD W/O CONTRAST STAT 10/23/2024 1:38 PM YARD OPERATOR BLOOD GAS VENOUS STAT 10/23/2024 1:04 PM YARD OPERATOR BASIC METABOLIC PANEL STAT 10/23/2024 1:04 PM YARD OPERATOR CBC WITH PLATELETS STAT 10/23/2024 1: 04 PM YARD OPERATOR GLUCOSE BY METER Routine 10/23/2024 12:2 6 PM YARD OPERATOR XR CHEST PORT 1 VIEW STAT 10/23/2024 8:59 AM YARD OPERATOR GLUCOSE BY METER Routine 10/23/2024 8:44 AM YARD OPERATOR EXTRA PURPLE TOP EDTA (LAB USE ONLY) Routine 10/23/2024 6:41 AM YARD OPERATOR PHOSPHORUS Routine 10/23/2024 6:41 AM YARD OPERATOR MAGNESIUM Routine 10/23/2024 6:41 AM YARD OPERATOR GLUCOSE BY METER Routine 10/23/2024 2:08 AM YARD OPERATOR GLUCOSE BY METER Routine 10/22/2024 9:32 PM YARD OPERATOR GLUCOSE BY METER Routine 10/22/2024 4:45 PM YARD OPERATOR PROCALCITONIN Routine 10/22/2024 12:14 PM YARD OPERATOR CRP INFLAMMATION Routine 10/22/2024 12:1 4 PM YARD OPERATOR GLUCOSE BY METER Routine 10/22/2024 12:0 0 PM YARD OPERATOR XR CHEST PORT 1 VIEW Routine 10/22/2024 9:27 AM YARD OPERATOR GLUCOSE BY METER Routine 10/22/2024 8:07 AM YARD OPERATOR CBC WITH PLATELETS Routine 10/22/2024 7: 03 AM YARD OPERATOR BASIC METABOLIC PANEL Routine 10/22/2024 7:03 AM YARD OPERATOR PHOSPHORUS Routine 10/22/2024 7:03 AM YARD OPERATOR MAGNESIUM Routine 10/22/2024 7:03 AM YARD OPERATOR GLUCOSE BY METER Routine 10/22/2024 2:35 AM YARD OPERATOR GLUCOSE BY METER Routine 10/21/2024 9:58 PM YARD OPERATOR GLUCOSE BY METER Routine 10/21/2024 5:26 PM YARD OPERATOR GLUCOSE BY METER Routine 10/21/2024 1:24 PM YARD OPERATOR GLUCOSE BY METER Routine 10/21/2024 9:06 AM YARD OPERATOR PHOSPHORUS Routine 10/21/2024 6:05 AM YARD OPERATOR MAGNESIUM Routine 10/21/2024 6:05 AM YARD OPERATOR GLUCOSE BY METER Routine 10/21/2024 3:40 AM YARD OPERATOR GLUCOSE BY METER Routine 10/21/2024 1:55 AM YARD OPERATOR GLUCOSE BY METER Routine 10/20/2024 9:14 PM YARD OPERATOR GLUCOSE BY METER Routine 10/20/2024 5:2 6 PM YARD OPERATOR EXTRA PURPLE TOP TUBE Routine 10/20/2024 7:15 AM YARD OPERATOR EXTRA TUBE Routine 10/20/2024 7:15 AM YARD OPERATOR MAGNESIUM Routine 10/20/2024 7:15 AM YARD OPERATOR PHOSPHORUS Routine 10/20/2024 7:15 AM YARD OPERATOR GLUCOSE BY METER Routine 10/20/2024 6:00 AM YARD OPERATOR GLUCOSE BY METER Routine 10/20/2024 5:11 AM YARD OPERATOR GLUCOSE BY METER Routine 10/20/2024 2:03 AM YARD OPERATOR GLUCOSE BY METER Routine 10/20/2024 12:3 0 AM YARD OPERATOR GLUCOSE BY METER Routine 10/20/2024 12:0 6 AM YARD OPERATOR GLUCOSE BY METER Routine 10/19/2024 9:06 PM YARD OPERATOR GLUCOSE BY METER Routine 10/19/2024 5:55 PM YARD OPERATOR GLUCOSE BY METER Routine 10/19/2024 11:4 4 AM YARD OPERATOR GLUCOSE BY METER Routine 10/19/2024 8:17 AM YARD OPERATOR XR CHEST PORT 1 VIEW Routine 10/19/2024 8:16 AM YARD OPERATOR EXTRA PURPLE TOP EDTA (LAB USE ONLY) Routine 10/19/2024 6:34 AM YARD OPERATOR PHOSPHORUS Routine 10/19/2024 6:34 AM YARD OPERATOR MAGNESIUM Routine 10/19/2024 6:34 AM YARD OPERATOR CREATININE Routine 10/19/2024 6:34 AM YARD OPERATOR GLUCOSE BY METER Routine 10/19/2024 2:17 AM YARD OPERATOR GLUCOSE BY METER Routine 10/18/2024 9:31 PM YARD OPERATOR GLUCOSE BY METER Routine 10/18/2024 4:40 PM YARD OPERATOR GLUCOSE BY METER Routine 10/18/2024 12:5 7 PM YARD OPERATOR GLUCOSE BY METER Routine 10/18/2024 8:27 AM YARD OPERATOR EXTRA PURPLE TOP EDTA (LAB USE ONLY) Routine 10/18/2024 6:33 AM YARD OPERATOR BASIC METABOLIC PANEL Routine 10/18/2024 6:33 AM YARD OPERATOR PHOSPHORUS Routine 10/18/2024 6:33 AM YARD OPERATOR MAGNESIUM Routine 10/18/2024 6:33 AM YARD OPERATOR GLUCOSE BY METER Routine 10/18/2024 2:15 AM YARD OPERATOR GLUCOSE BY METER Routine 10/17/2024 9:08 PM YARD OPERATOR GLUCOSE BY METER Routine 10/17/2024 5:27 PM YARD OPERATOR XR CHEST PORT 1 VIEW STAT 10/17/2024 3:37 PM YARD OPERATOR GLUCOSE BY METER Routine 10/17/2024 12:4 3 PM YARD OPERATOR GLUCOSE BY METER Routine 10/17/2024 8:25 AM YARD OPERATOR EXTRA PURPLE TOP EDTA (LAB USE ONLY) Routine 10/17/2024 6:53 AM YARD OPERATOR PHOSPHORUS Routine 10/17/2024 6:53 AM YARD OPERATOR MAGNESIUM Routine 10/17/2024 6:53 AM YARD OPERATOR CREATININE Routine 10/17/2024 6:53 AM YARD OPERATOR GLUCOSE BY METER Routine 10/17/2024 2:21 AM YARD OPERATOR GLUCOSE BY METER Routine 10/16/2024 9:42 PM YARD OPERATOR GLUCOSE BY METER Routine 10/16/2024 5:37 PM YARD OPERATOR GLUCOSE BY METER Routine 10/16/2024 12:0 5 PM YARD OPERATOR US CHEST TUBE INSERT Routine 10/16/2024 11:46 AM YARD OPERATOR GLUCOSE BY METER Routine 10/16/2024 8:14 AM YARD OPERATOR PHOSPHORUS Routine 10/16/2024 7:44 AM YARD OPERATOR MAGNESIUM Routine 10/16/2024 7:44 AM YARD OPERATOR CREATININE Routine 10/16/2024 7:44 AM YARD OPERATOR GLUCOSE BY METER Routine 10/16/2024 1:18 AM YARD OPERATOR GLUCOSE BY METER Routine 10/15/2024 9:21 PM YARD OPERATOR GLUCOSE BY METER Routine 10/15/2024 6:[address] CHEST W/O CONTRAST Routine 10/15/2024 3:37 PM YARD OPERATOR MR BRAIN W/O & W CONTRAST Routine 10/15/2024 3:25 PM YARD OPERATOR GLUCOSE BY METER Routine 10/15/2024 11:5 1 AM YARD OPERATOR GLUCOSE BY METER Routine 10/15/2024 8:02 AM YARD OPERATOR GLUCOSE BY METER Routine 10/15/2024 6:40 AM YARD OPERATOR CBC WITH PLATELETS & DIFFERENTIAL Routine 10/15/2024 5:45 AM YARD OPERATOR CBC WITH PLATELETS AND DIFFERENTIAL Routine 10/15/2024 5:45 AM YARD OPERATOR BASIC METABOLIC PANEL Routine 10/15/2024 5:45 AM YARD OPERATOR MAGNESIUM Routine 10/15/2024 5:45 AM YARD OPERATOR PHOSPHORUS Routine 10/15/2024 5:45 AM YARD OPERATOR LACTIC ACID WHOLE BLOOD WITH 1X REPEAT IN 2 HR WHEN >2 STAT 10/15/2024 2:30 AM YARD OPERATOR GLUCOSE BY METER Routine 10/15/2024 2:17 AM YARD OPERATOR EKG 12-LEAD, TRACING ONLY STAT 10/15/2024 1:33 AM YARD OPERATOR GLUCOSE BY METER Routine 10/14/2024 10:0 5 PM YARD OPERATOR GLUCOSE BY METER Routine 10/14/2024 6:11 PM YARD OPERATOR MR LIVER W/O & W CONTRAST Routine 10/14/2024 4:17 PM YARD OPERATOR MRSA MSSA PCR, NASAL SWAB Routine 10/14/2024 1:30 PM YARD OPERATOR GLUCOSE BY METER Routine 10/14/2024 11:3 8 AM YARD OPERATOR US THORACENTESIS Routine 10/14/2024 11:1 3 AM YARD OPERATOR CELL COUNT WITH DIFFERENTIAL FLUID Routine 10/14/2024 11:08 AM YARD OPERATOR AEROBIC BACTERIAL CULTURE ROUTINE Routine 10/14/2024 11:08 AM YARD OPERATOR NON-GYNECOLOGIC CYTOLOGY Routine 10/14/2024 11:08 AM YARD OPERATOR DIFERENTIAL BODY FLUID Routine 11:08 AM YARD OPERATOR CELL COUNT BODY FLUID Routine 10/14/2024 11:08 AM YARD OPERATOR PROTEIN FLUID Routine 10/14/2024 11:08 AM YARD OPERATOR LACTATE DEHYDROGENASE FLUID Routine 10/14/2024 11:08 AM YARD OPERATOR GLUCOSE FLUID Routine 10/14/2024 11:08 AM YARD OPERATOR HEPATIC FUNCTION PANEL Add-On 10:24 AM YARD OPERATOR PROTEIN TOTAL Routine 10/14/2024 10:24 AM YARD OPERATOR LACTATE DEHYDROGENASE Routine 10/14/2024 10:24 AM YARD OPERATOR GLUCOSE BY METER Routine 10/14/2024 8:16 AM YARD OPERATOR CBC WITH PLATELETS & DIFFERENTIAL Routine 10/14/2024 6:06 AM YARD OPERATOR CBC WITH PLATELETS AND DIFFERENTIAL Routine 10/14/2024 6:06 AM YARD OPERATOR BASIC METABOLIC PANEL Routine 10/14/2024 6:06 AM YARD OPERATOR MAGNESIUM Routine 10/14/2024 6:06 AM YARD OPERATOR PHOSPHORUS Routine 10/14/2024 6:06 AM YARD OPERATOR GLUCOSE BY METER Routine 10/14/2024 5:56 AM YARD OPERATOR XR CHEST PORT 1 VIEW STAT 10/14/2024 3:39 AM YARD OPERATOR GLUCOSE BY METER Routine 10/14/2024 2:10 AM YARD OPERATOR GLUCOSE BY METER Routine 10/14/2024 2:05 AM YARD OPERATOR GLUCOSE BY METER Routine 10/13/2024 11:5 6 PM YARD OPERATOR GLUCOSE BY METER Routine 10/13/2024 8:47 PM YARD OPERATOR SODIUM Timed 10/13/2024 7:55 PM YARD OPERATOR SODIUM RANDOM URINE Routine 10/13/2024 6 :45 PM YARD OPERATOR OSMOLALITY, RANDOM URINE Routine 10/13/2024 6:45 PM YARD OPERATOR GLUCOSE BY METER Routine 10/13/2024 5:44 PM YARD OPERATOR GLUCOSE BY METER Routine 10/13/2024 11:4 1 AM YARD OPERATOR GLUCOSE BY METER Routine 10/13/2024 8:40 AM YARD OPERATOR OSMOLALITY Add-On 10/13/2024 7:01 AM YARD OPERATOR PHOSPHORUS Routine 10/13/2024 7:01 AM YARD OPERATOR MAGNESIUM Routine 10/13/2024 7:01 AM YARD OPERATOR CBC WITH PLATELETS Routine 10/13/2024 7: 01 AM YARD OPERATOR COMPREHENSIVE METABOLIC PANEL Routine 10/13/2024 7:01 AM YARD OPERATOR GLUCOSE BY METER Routine 10/13/2024 2:06 AM YARD OPERATOR GLUCOSE BY METER Routine 10/12/2024 9:34 PM YARD OPERATOR GLUCOSE BY METER STAT 10/12/2024 8:19 PM YARD OPERATOR SODIUM STAT 10/12/2024 8:02 PM YARD OPERATOR LEGIONELLA URINARY ANTIGEN AND STREPTOCOCCUS PNEUMONIAE ANTIGEN STAT 10/12/2024 7:29 PM YARD OPERATOR GLUCOSE BY METER STAT 10/12/2024 5:08 PM YARD OPERATOR SODIUM STAT 10/12/2024 3:19 PM YARD OPERATOR TROPONIN T, HIGH SENSITIVITY STAT 10/12/2024 2:16 PM YARD OPERATOR ROUTINE UA WITH MICROSCOPIC STAT 10/12/2024 1:[address] CHEST PE ABDOMEN PELVIS W CONTRAST STAT 10/12/2024 12:[address] HEAD W/O CONTRAST STAT 10/12/2024 12:11 PM YARD OPERATOR BLOOD CULTURE STAT 10/12/2024 11:28 AM YARD OPERATOR EKG 12-LEAD, TRACING ONLY STAT 10/12/2024 11:02 AM YARD OPERATOR ISTAT CREATININE POCT STAT 10/12/2024 11:00 AM YARD OPERATOR ISTAT GASES LACTATE VENOUS POCT STAT 10/12/2024 10:59 AM YARD OPERATOR EXTRA GREEN TOP (LITHIUM HEPARIN) TUBE STAT 10/12/2024 10:56 AM YARD OPERATOR EXTRA RED TOP TUBE STAT 10/12/2024 10 :56 AM YARD OPERATOR EXTRA BLUE TOP TUBE STAT 10/12/2024 1 0:56 AM YARD OPERATOR EXTRA TUBE STAT 10/12/2024 10:56 AM YARD OPERATOR CBC WITH PLATELETS & DIFFERENTIAL STAT 10/12/2024 10:55 AM YARD OPERATOR BLOOD CULTURE STAT 10/12/2024 10:55 AM YARD OPERATOR CBC WITH PLATELETS AND DIFFERENTIAL STAT 10/12/2024 10:55 AM YARD OPERATOR TROPONIN T, HIGH SENSITIVITY STAT 10/12/2024 10:55 AM YARD OPERATOR COMPREHENSIVE METABOLIC PANEL STAT 10/12/2024 10:55 AM YARD OPERATOR INFLUENZA A/B, RSV AND SARS-COV2 PCR STAT 10/12/2024 10:39 AM YARD OPERATOR EKG CARDIAC - HIM SCAN 5 12:00 AM YARD OPERATOR EKG CARDIAC - HIM SCAN 5 12:00 AM YARD OPERATOR EYE EXAM - HIM SCAN Routine 06/28/2024 [...] control, and institution of therapy with an hplzgxpqpna-jkkzgrombl-tzrazp (JOANA) inhibitor (if the patient can tolerate it). Urine URINE SPECIMEN / Unknown Non-blood Collection / Unknown 12/03/2024 8:41 AM CDT 12/03/2024 8:41 AM CDT us Stephie Mahoney MD LAB - URINE ORDERABLES Final Result U LABORATORY [facility] [place] [facility] [address] [facility], [address] [place] [address] * 25 Hydroxyvitamin D2 and [...] intake, and treatment affect the concentration of 77-spayekx-Fgnhzjz D. Values may decrease during winter months [...] and its performance characteristics determined by the [facility], Special Chemistry Laboratory. It has not been cleared or approved by the FDA. The laboratory is regulated under CLIA as qualified to perform high-complexity testing. This test is used for clinical purposes. It should not be regarded as investigational or for research. us Stephie Mahoney MD LAB - BLOOD ORDERABLES Final Result UM SPECIAL DRUG/BGEN Special Drug/BGEN [address] [facility], [address] * (ABNORMAL) TSH (12/03/2024 8:21 AM CDT) TSH 6.21(H) 0.30 - 4.20 uIU/mL 12/03/2024 3:17 PM CDT UU LABORATORY Blood BLOOD SPECIMEN / Unknown Venipuncture / Unknown 12/03/2024 8:21 AM CDT 12/03/2024 8:21 AM CDT us Stephie Mahoney MD LAB - BLOOD ORDERABLES Final Result Performing Organization Address City/[facility]/ZIP Co de Phone Number UU LABORATORY [facility] [place] [facility] [address] [place] [address], [address] * Tissue transglutaminase mike IgA and [...] Final Result SPECIALTY CORE/PROT/ENDO Specialty Core/Prot/Endo [address] [facility] [address], [address] * Lipid Profile (12/03/2024 8:21 AM [...] - BLOOD ORDERABLES Final Result [facility] LABORATORY [facility] [place] [facility] [address] [facility], [address] [place] [address], [place] * (ABNORMAL) Hemoglobin A1c (12/03/2024 8:21 AM CDT) Only the most recent of2 resultswithin the time period is included. Pathologist [facility] Estimated Average Glucose 160(H) <117 mg/dL 12/03/2024 [...] LAB - BLOOD ORDERABLES Final Result LABORATORY [facility] Lab [address] [facility] (no room number, 1st floor of clinic) [place] [address] * (ABNORMAL) Basic metabolic panel (12/03/2024 8:21 AM CDT) Only the most recent of10 resultswithin the time period is included. Pathologist [facility] Sodium 139 135 - 145 mmol/L 12/03/2024 [...] - BLOOD ORDERABLES Final Result [facility] LABORATORY [facility] [place] [facility] [address] [facility], [address] [phone] * CT Chest w Contrast [...] CDT EXAM: CT CHEST W CONTRAST LOCATION: [facility] DATE: 11/28/2024 INDICATION: trapped lung COMPARISON: [...] 12/01/2024 EXAM: CT CHEST W CONTRAST LOCATION: [facility] DATE: 11/28/2024 INDICATION: trapped lung COMPARISON: [...] month CT chestfollow-up exam. Angel Balbuena MD [facility] CT ORDERABLES Final Result * (ABNORMAL) Glucose [...] POCT Final Re sult UR LABORATORY POC [facility] Acute Care Lab [facility] [facility], [address] [place] [address], [facility] * Extra Purple Top Tube (11/04/2024 5:48 AM CDT) Only the most recent of6 resultswithin the time period is included. Hold Specimen JIC 11/04/2024 7:31 AM CDT UR LABORATORY Blood STRUCTURE OF RIGHT UPPER LIMB / Unknown Venipuncture / Unknown 11/04/2024 5:48 AM CDT 11/04/2024 6:22 AM CDT Finn Monreo DO LAB - BLOOD ORDERABLES Fin al Result Performing Organization Address City/[facility] Co de Phone Number UR LABORATORY [facility] Acute Care Lab [address] [place] [address], [address] [id number], [facility] * Magnesium (11/03/2024 7:40 AM CDT) Only the most recent of19 resultswithin the time period is included. Magnesium 1.7 1.7 - 2.3 mg/dL 11/03/2024 8:55 AM CDT UR LABORATORY Blood STRUCTURE OF LEFT HAND / Unknown Venipuncture / Unknown 11/03/2024 7:40 AM CDT 11/03/2024 8:15 AM CDT Zee Espana PA-C LAB - BLOOD ORDERABLES F inal Result UR LABORATORY [facility] Lab [address] [place] [address], [address] [place] [address] * (ABNORMAL) CBC with platelets [...] BLOOD ORDERABLES F inal Result UR LABORATORY [facility] Lab [address] [facility], [address] [place] [address] * Sodium random urine (10/30/2024 [...] ORDERABLES Final Res ult Performing Organization Address City/[facility]/ZIP Co de Phone Number UR LABORATORY [facility] Lab [address] [place] [address], [place] [phone] [place] [address] * Osmolality urine (10/30/2024 11:29 AM CDT) [...] ORDERABLES Final Res ult Performing Organization Address City/[facility]/ZIP Co de Phone Number UR LABORATORY [facility] Lab [address] [place] [address], Room [address] [address], [place] * (ABNORMAL) Osmolality (10/30/2024 6:19 AM [...] BLOOD ORDERABLES Final Res ult UR LABORATORY [facility] Lab [address] [facility], [address] [place] [address], [facility] * Phosphorus (10/29/2024 7:30 AM CDT) Only the most recent of17 resultswithin the time period is included. Phosphorus 3.9 2.5 - 4.5 mg/dL 10/29/2024 8:01 AM CDT RH LABORATORY Blood STRUCTURE OF RIGHT UPPER LIMB / Unknown Venipuncture / Unknown 10/29/2024 7:30 AM CDT 10/29/2024 7:34 AM CDT us Nishant Sands MD LAB - BLOOD ORDERABLES Fi nal Result RH LABORATORY [facility] Acute Care Lab [address] Lab (1st floor, no room number) [place] [address], [facility] * Extra Purple Top EDTA (LAB [...] Fin al Result [facility] [address] Lab (1st floor, no room number) [place] [address], [facility] * Potassium (10/28/2024 6:18 AM CDT) Potassium 4.5 3.4 - 5.3 mmol/L 10/28/2024 8:56 AM CDT LABORATORY Blood BLOOD SPECIMEN / Unknown Venipuncture / Unknown 10/28/2024 6:18 AM CDT 10/28/2024 6:22 AM CDT us Al Ian Sands MD LAB - BLOOD ORDERABLES Fi nal Result Performing Organization Address City/[facility]/ZIP Co de Phone Number [facility] [address] Lab (1st floor, no room number) [place] [address], [facility] * CTA Head Neck with Contrast [...] EXAM: CTA HEAD NECK W CONTRAST LOCATION: [facility] DATE: 10/27/2024 INDICATION: Right frontal infarct; rule [...] artery stenoses. Mild multifocal likely atherosclerotic bilateral bowling ball marker stenoses; patent P1-proximal P3 segment branches of the bowling ball marker without high-grade stenosis. No aneurysm or high-flow [...] effusion with compressive atelectasis. A partially imaged iyrwo-hgfafvzq-wswud left pleural effusion without evidence of loculation. Procedure Note Sergio Purvis MD - 10/27/2024 EXAM: CTA HEAD NECK W CONTRAST LOCATION: [facility] DATE: 10/27/2024 INDICATION: Right frontal infarct; rule [...] basilar artery stenoses. 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 Diffuse interlobular pulmonary septal thickening, greater on the left where thereare patchy groundglass airspace opacities, nonspecific although can becompatible with pulmonary edema in the appropriate clinical setting;pneumonia may contribute to a similar appearance and should be excluded clinically. A partially imaged loculatedright pleural effusion with compressive atelectasis. A partially sbqptdxdsai-jltndmks-yiyru left pleural effusion without evidence ofloculation. IMPRESSION: [...] * ECHO COMPLETE (10/27/2024 1:04 PM CDT) [facility] LVEF 65-70% CARDIOLOGY RESULTS Anatomical Region Laterality Modality Echocardiography 10/27/2024 12:3 2 PM CDT Narrative 10/27/2024 2:55 PM CDT [id number]^JARETT^ANEL^[facility] Echocardiography Laboratory [address] [place] [id number] Name: ALENA RAE : 1960 Study Date: 10/27/2024 12:32 PM Age: 63 yrs Gender: Male Patient Location: [facility] Reason For Study: CVA Ordering Physician: [...] E/e': 8.5 Medial E/e': 18.1 RV S Ivrin: 12.8 cm/sec Report approved by: Horacio Hernandez MD on 10/27/2024 02:55 PM Procedure Note Horacio Hernandez MD - 10/27/2024 [id number]^JARETT^ANEL^[facility] Echocardiography Laboratory [address] [place] [id number] Name: ALENA RAE : 1960 Study Date: 10/27/2024 12:32 PM Age: 63 yrs Gender: Male Patient Location: [facility] Reason For Study: CVA Ordering Physician: [...] BLOOD ORDERABLES Final R esult [facility] LABORATORY [facility] [place] [facility] [address] [facility] [address], [address] [place] [address], [facility] * (ABNORMAL) CRP inflammation (10/24/2024 1:33 PM YARD OPERATOR) Only the most recent of2 resultswithin the time period is included. CRP Inflammation 337.11(H) <5.00 mg/L 10/24/2024 2:09 PM YARD OPERATOR LABORATORY Blood STRUCTURE OF RIGHT UPPER LIMB / Unknown Venipuncture / Unknown 10/24/2024 1:33 PM YARD OPERATOR 10/24/2024 1:45 PM YARD OPERATOR Nima Acosta MD LAB - BLOOD ORDERABLES Final Re sult LABORATORY [facility] Lab [address] [facility] Lab (1st floor, no room number) [place] [address], [facility] * CT Chest w/o Contrast (10/23/2024 8:29 PM YARD OPERATOR) Only the most recent of2 resultswithin the time period is included. Anatomical Region Laterality Modality Chest, SUBRAD CT BODY, UMP CT CHEST, RAD CT Computed Tomography 10/23/2024 8:29 PM YARD OPERATOR Impressions 10/23/2024 9:52 PM YARD OPERATOR IMPRESSION: 1. Decreased right pleural effusion with [...] MRI from 10/14/2024. Narrative 10/23/2024 9:52 PM YARD OPERATOR EXAM: CT CHEST W/O CONTRAST LOCATION: [facility] DATE: 10/23/2024 INDICATION: follow up R pleural [...] MEDIASTINUM/AXILLAE: Right hilar adenopathy appears unchanged. A account services representative lymph node measures 1.4 cm. No [...] 10/23/2024 EXAM: CT CHEST W/O CONTRAST LOCATION: [facility] DATE: 10/23/2024 INDICATION: follow up R pleural [...] CT Head w/o Contrast (10/23/2024 1:38 PM YARD OPERATOR) Only the most recent of2 resultswithin the time period is included. Anatomical Region Laterality Modality Head, SUBRAD CT NEURO, SUBRA D CT NEURO, UMP CT NEURO, RAD CT Computed Tomography 10/23/2024 1:38 PM YARD OPERATOR Impressions 10/23/2024 1:44 PM YARD OPERATOR IMPRESSION: 1. No acute intracranial abnormality. Narrative 10/23/2024 1:44 PM YARD OPERATOR EXAM: CT HEAD W/O CONTRAST LOCATION: [facility] DATE: 10/23/2024 INDICATION: Confusion, AMS COMPARISON: MRI [...] 10/23/2024 EXAM: CT HEAD W/O CONTRAST LOCATION: [facility] DATE: 10/23/2024 INDICATION: Confusion, AMS COMPARISON: MRI [...] (ABNORMAL) Blood gas venous (10/23/2024 1:04 PM YARD OPERATOR) pH Venous 7.48(H) 7.32 - 7.43 10/23/2024 1:14 PM YARD OPERATOR RH LABORATORY pCO2 Venous 46 40 - 50 mm Hg 10/23/2024 1:14 PM YARD OPERATOR RH LABORATORY pO2 Venous 79(H) 25 - 47 mm Hg 10/23/2024 1:14 PM YARD OPERATOR [facility] LABORATORY Bicarbonate Venous 34(H) 21 - 28 mmol/L 10/23/2024 1:14 PM YARD OPERATOR [facility] LABORATORY Base Excess/Deficit Venous 9.1(H) -3.0 - 3.0 mmol/L 10/23/2024 1:14 PM YARD OPERATOR [facility] LABORATORY FIO2 3 YARIEL 10/23/2024 1:14 PM YARD OPERATOR [facility] LAB[facility]ATORY Oxyhemoglobin Venous 96(H) 70 - 75 % 10/23/2024 1:14 PM YARD OPERATOR [facility] LAB[facility]ATORY O2 Sat, Venous 97.5(H) 70.0 - 75.0 % 10/23/2024 1:14 PM YARD OPERATOR [facility] LABORATORY Blood, venous STRUCTURE OF LEFT UPPER LIMB / Unknown Venipuncture / Unknown 10/23/2024 1:04 PM YARD OPERATOR 10/23/2024 1:09 PM YARD OPERATOR Narrative LABORATORY - 10/23/2024 1:14 PM YARD OPERATOR In healthy individuals, oxyhemoglobin (O2Hb) and oxygen saturation (SO2) are approximately equal. In the presence of dyshemoglobins, oxyhemoglobin can be considerably lower than oxygen saturation. us Wilber Torres MD LAB - BLOOD ORDERABLES Fi nal Result LABORATORY [facility] Lab [address] Lab (1st floor, no room number) [place] [address], [facility] * XR Chest Port 1 View (10/23/2024 8:59 AM YARD OPERATOR) Only the most recent of5 resultswithin the time period is included. Anatomical Region Laterality Modality Chest Digital Radiogra phy 10/23/2024 8:59 AM YARD OPERATOR Impressions 10/23/2024 9:03 AM YARD OPERATOR IMPRESSION: Right-sided thoracostomy tube is again seen [...] acute bony abnormality. Narrative 10/23/2024 9:03 AM YARD OPERATOR EXAM: XR CHEST PORT 1 VIEW LOCATION: [facility] DATE: 10/23/2024 INDICATION: pleural effusion, chest tube COMPARISON: 10/22/2024 Procedure Note Huma Helm MD - 10/23/2024 EXAM: XR CHEST PORT 1 VIEW LOCATION: [facility] DATE: 10/23/2024 INDICATION: pleural effusion, chest tube [...] Final Result * Procalcitonin (10/22/2024 12:14 PM YARD OPERATOR) Procalcitonin 0.33 <0.50 ng/mL 10/22/2024 1:06 PM YARD OPERATOR LABORATORY Comment: Interpretation and Recommendations <0.5 ng/mL: Systemic bacterial infection unlikely. Local bacterial infection is possible. 0.5-1.99 ng/mL: Systemic bacterial infection possible, but various other conditions are known to induce PCT as well. >=2.00 ng/mL: Systemic bacterial infection likely, unless other causes are known. Decision to start antibiotics should not be based on procalcitonin level alone. See Procalcitonin Guidance document for more details. [email or web address] Factors that may affect PCT levels (not [...] Unknown Venipuncture / Unknown 10/22/2024 12:14 PM YARD OPERATOR 10/22/2024 12:31 PM YARD OPERATOR us Nima Acosta MD LAB - BLOOD ORDERABLES Final Re sult Performing Organization Address City/[facility]/ZIP Co de Phone Number [facility] [address] Lab (1st floor, no room number) [place] [address] * Creatinine (10/19/2024 6:34 AM YARD OPERATOR) Only the most recent of3 resultswithin the time period is included. Creatinine 0.78 0.67 - 1.17 mg/dL 10/19/2024 7:07 AM YARD OPERATOR LABORATORY GFR Estimate >90 >60 mL/min/1.7 3m2 10/19/2024 7:07 AM YARD OPERATOR LABORATORY Comment:eGFR calculated 2020 CKD-EPI equation. Blood STRUCTURE OF RIGHT UPPER LIMB / Unknown Venipuncture / Unknown 10/19/2024 6:34 AM YARD OPERATOR 10/19/2024 6:37 AM YARD OPERATOR Bernardino Garcia MD LAB - BLOOD ORDERABLES Final Result Performing Organization Address [facility]/ZIP Co de Phone Number [facility] [address] [facility], no room number) [place] [address] * US Chest Tube Insert (10/16/2024 11:46 AM YARD OPERATOR) Anatomical Region Laterality Modality Chest Ultrasound 10/16/2024 11:4 6 AM YARD OPERATOR Impressions 10/16/2024 12:07 PM YARD OPERATOR IMPRESSION: Right-sided 10 Irish chest tube placement under ultrasound guidance. Narrative 10/16/2024 12:07 PM YARD OPERATOR PROCEDURE: Ultrasound guided right sided 10 Irish chest tube placement DATE: 10/16/2024 MEDICATIONS: 1% [...] Lidocaine. Under direct ultrasound guidance, a 5 Irish Yueh needle was advanced into the pleural space via an intercostal approach. The catheter was advanced off of the needle. A 0.035 guidewire was advanced through the micropuncture sheath and the tract was serially dilated. A 10 Irish locking loop chest tube was placed with [...] 10/16/2024 PROCEDURE: Ultrasound guided right sided 10 Irish chest tube placement DATE: 10/16/2024 MEDICATIONS: 1% [...] 1% Lidocaine. Under direct ultrasoundguidance, a 5 Irish Yueh needle was advanced into the pleural [...] interventional radiology instable condition. IMPRESSION: Right-sided 10 Irish chest tube placement under ultrasound guidance. us Kayla Baca MD IMG US ORDERABLES Final Result * MR Brain w/o & w Contrast (10/15/2024 3:25 PM YARD OPERATOR) Anatomical Region Laterality Modality Head, SUBRAD MR NEURO, UMP MR NEURO, RAD MR Magnetic Resonance 10/15/2024 3:25 PM YARD OPERATOR Impressions 10/17/2024 2:27 PM YARD OPERATOR IMPRESSION: 1. Interval development of 1 cm linear focus of restricted diffusion posterior to the right frontal resection cavity. Differential considerations include acute ischemia, posttreatment change, or recurrence. Recommend continued radiographic follow-up. 2. Otherwise similar appearance of the right frontal resection cavity. Narrative 10/17/2024 2:27 PM YARD OPERATOR EXAM: MR BRAIN W/O and W CONTRAST LOCATION: [facility] DATE: 10/15/2024 INDICATION: h o right astrocytoma [...] MR BRAIN W/O and W CONTRAST LOCATION: [facility] DATE: 10/15/2024 INDICATION: h o right astrocytoma [...] with platelets and differential (10/15/2024 5:45 AM YARD OPERATOR) Only the most recent of3 resultswithin the time period is included. WBC Count 10.7 4.0 - 11.0 10e3/uL 10/15/2024 5:53 AM YARD OPERATOR [facility] LAB[facility]AT[facility] RBC Count 4.26(L) 4.40 - 5.90 10e6/uL 10/15/2024 5:53 AM YARD OPERATOR [facility] LAB[facility] Hemoglobin 12.9(L) 13.3 - 17.7 g/dL 10/15/2024 5:53 AM YARD OPERATOR [facility] LAB[facility] Hematocrit 37.1(L) 40.0 - 53.0 % 10/15/2024 5:53 AM YARD OPERATOR [facility] LAB[facility]ATORY MCV 87 78 - 100 fL 10/15/2024 5:53 AM YARD OPERATOR [facility] LAB[facility] MCH 30.3 26.5 - 33.0 pg 10/15/2024 5:53 AM YARD OPERATOR [facility] LAB[facility]AT[facility] MCHC 34.8 31.5 - 36.5 g/dL 10/15/2024 5:53 AM YARD OPERATOR [facility] LAB[facility] RDW 12.1 10.0 - 15.0 % 10/15/2024 5:53 AM YARD OPERATOR [facility] Platelet Count 240 150 - 450 10e3/uL 10/15/2024 5:53 AM YARD OPERATOR [facility] % Neutrophils 79 % 10/15/2024 5:53 AM YARD OPERATOR [facility] % Lymphocytes 8 % 10/15/2024 5:53 AM YARD OPERATOR [facility] % Monocytes 11 % 10/15/2024 5:53 AM YARD OPERATOR [facility] % Eosinophils 2 % 10/15/2024 5:53 AM YARD OPERATOR [facility] % Basophils 0 % 10/15/2024 5:53 AM YARD OPERATOR [facility] % Immature Granulocytes 0 % 10/15/2024 5:53 AM YARD OPERATOR [facility] LAB[facility] NRBCs per 100 WBC 0 <1 /100 025 5:53 AM YARD OPERATOR [facility] Absolute Neutrophils 8.4(H) 1.6 - 8.3 10e3/uL 10/15/2024 5:53 AM YARD OPERATOR [facility] LAB[facility] Absolute Lymphocytes 0.8 0.8 - 5.3 10e3/uL 10/15/2024 5:53 AM YARD OPERATOR [facility] LAB[facility]AT[facility] Absolute Monocytes 1.2 0.0 - 1.3 10e3/uL 10/15/2024 5:53 AM YARD OPERATOR [facility] Absolute Eosinophils 0.2 0.0 - 0.7 10e3/uL 10/15/2024 5:53 AM YARD OPERATOR [facility] Absolute Basophils 0.0 0.0 - 0.2 10e3/uL 10/15/2024 5:53 AM YARD OPERATOR [facility] Absolute Immature Granulocytes 0.0 <=0.4 10e3/uL 10/15/2024 5:53 AM YARD OPERATOR [facility] Absolute NRBCs 0.0 10e3/uL 10/15/2024 5:53 AM YARD OPERATOR [facility] Blood STRUCTURE OF LEFT HAND / Unknown Venipuncture / Unknown 10/15/2024 5:45 AM YARD OPERATOR 10/15/2024 5:51 AM YARD OPERATOR Ortiz Chew MD LAB - BLOOD ORDERABLES Final Result [facility] [address] (1st floor, no room number) [address] * Lactic Acid Whole Blood w/ 1x repeat in 2 hrs when >2 (10/15/2024 2:30 AM YARD OPERATOR) Pathologist [facility] Lactic Acid, Initial 1.5 0.7 - 2.0 mmol/L 10/15/2024 2:39 AM YARD OPERATOR [facility] LAB[facility]AT[facility] Blood STRUCTURE OF LEFT HAND / Unknown Venipuncture / Unknown 10/15/2024 2:30 AM YARD OPERATOR 10/15/2024 2:37 AM YARD OPERATOR Ortiz Chew MD LAB - BLOOD ORDERABLES Final Result [facility] [address] (1st floor, no room number) [address] * EKG 12-lead, tracing only (10/15/2024 1:33 AM YARD OPERATOR) Only the most recent of2 resultswithin the time period is included. Systolic Blood Pressure mmHg RADIOLOGY RESULTS Diastolic Blood Pressure mmHg RADIOLOGY RESULTS Ventricular Rate 146 BPM RAD IOLOGY RESULTS Atrial Rate 192 BPM RADIOLOG Y RESULTS HI Interval ms RADIOLOG Y RESULTS QRS Duration 108 ms RADIOLO GY RESULTS QT 318 ms RADIOLOGY RESULTS QTc 495 ms RADIOLOGY RESULTS P [place] degrees RADIOLOGY RESULTS R AXIS 9 degrees RADIOLOGY RESULTS T [place] 79 degrees RADIOLOGY RESULTS Interpretation ECG Atrial fibrillation with rapid ventricular response Incomplete right bundle branch block ST depression, consider subendocardial injury Abnormal ECG Confirmed by CAROLYNE BURTON ([id number]) on 10/15/2024 3:06:01 PM RADIOLOGY RESULTS 10/15/2024 1:33 AM YARD OPERATOR 10/15/2024 3:06 PM YARD OPERATOR us Horacio Galan MD ECG ORDERABLES Edited R esult - Final RADIOLOGY RESULTS * MR Liver wo & w Contrast (10/14/2024 4:17 PM YARD OPERATOR) Anatomical Region Laterality Modality Abdomen/Pelvis, SUBRAD MR BODY, UMP MR BODY, RAD MR Magnetic Resonance 10/14/2024 4:17 PM YARD OPERATOR Impressions 10/14/2024 4:33 PM YARD OPERATOR IMPRESSION: 1. Multifocal indeterminate lesions in the liver. These do not have T2 characteristics of simple cysts. Differential includes metastatic disease, among other considerations. Recommend biopsy of the largest lesion in the posterior right lobe of the liver. 2. Abnormal findings requiring follow-up. Narrative 10/14/2024 4:33 PM YARD OPERATOR EXAM: MR LIVER W/O and W CONTRAST LOCATION: [facility] DATE: 10/14/2024 INDICATION: lesions seen on CT [...] MR LIVER W/O and W CONTRAST LOCATION: [facility] DATE: 10/14/2024 INDICATION: lesions seen on CT [...] in the liver. These do not have K3tuoykepkfbkqqzi of simple cysts. Differential includes metastatic disease,among other considerations. Recommend biopsy of the largest lesion in theposterior right lobe of the liver. 2. Abnormal findings requiring follow-up. Ortiz Chew MD [facility] MRI ORDERABLES Final Resu lt * MRSA MSSA PCR, Nasal Swab (10/14/2024 1:30 PM YARD OPERATOR) MRSA Target DNA Negative Negative 10/14/2024 5:06 PM YARD OPERATOR [facility] SA Target DNA Positive 10/14/2024 5:06 PM YARD OPERATOR [facility] Swab BOTH ANTERIOR NARES / Unknown Non-blood Collection / Unknown 10/14/2024 1:30 PM YARD OPERATOR 10/14/2024 1:36 PM YARD OPERATOR Narrative [facility] - 10/14/2024 5:06 PM YARD OPERATOR The [employer] Xpert SA Nasal Complete assay performed in the [employer] is a qualitative in vitro [...] ORDERABLE S Final Result [facility] Inf. Diseases Diag. Lab [address] [facility], [address] [place] [address] * US Thoracentesis (10/14/2024 11:13 AM YARD OPERATOR) Anatomical Region Laterality Modality Chest Ultrasound 10/14/2024 11:1 3 AM YARD OPERATOR Impressions 10/14/2024 3:20 PM YARD OPERATOR IMPRESSION: Status post right ultrasound-guided thoracentesis. Reference CPT Code: 76021 Narrative 10/14/2024 3:20 PM YARD OPERATOR EXAM: 1. RIGHT THORACENTESIS 2. ULTRASOUND GUIDANCE LOCATION: [facility] DATE: 10/14/2024 INDICATION: Pleural effusion. PROCEDURE: Informed consent obtained. Time out performed. The chest was prepped and draped in sterile fashion. 10 mL of 1 % lidocaine was infused into the local soft tissues. Under direct ultrasound guidance, a 5 Irish catheter system was placed into the pleural effusion. 0.1 liters of clear yellow fluid were removed and sent to lab, if requested. Patient tolerated procedure well. Ultrasound imaging was obtained and placed in the patient's permanent medical record. Procedure Note Kojo Dent MD - 10/14/2024 EXAM: 1. RIGHT THORACENTESIS 2. ULTRASOUND GUIDANCE LOCATION: [facility] DATE: 10/14/2024 INDICATION: Pleural effusion. PROCEDURE: Informed [...] post right ultrasound-guided thoracentesis. Reference CPT Code: 01645 Ortiz Chew MD [facility] US ORDERABLES Final Resul t * Differential Body Fluid (10/14/2024 11:08 AM YARD OPERATOR) % Neutrophils 97 % [facility] 10/14/2024 1:41 PM YARD OPERATOR [facility] % Lymphocytes 0 % YARIEL 10/14/2024 1:41 PM YARD OPERATOR [facility] % Monocyte/Macroph ages 3 % YARIEL 10/14/2024 1:41 PM YARD OPERATOR [facility] Pleural fluid RIGHT LUNG STRUCTURE / Unknown Non-blood Collection / Unknown 10/14/2024 11:08 AM YARD OPERATOR 10/14/2024 11:20 AM YARD OPERATOR Narrative [facility] - 10/14/2024 1:41 PM YARD OPERATOR No reference ranges have been established. This result should be interpreted in the context of the patient's clinical condition and compared to simultaneous measurement in the patient's blood. Result [facility] Ortiz Chew MD LAB - BODY FLUIDS ORDERABLES Final Result [facility] Acute Care Lab [address] [facility] Lab (1st floor, no room number) [place] [address], [facility] * (ABNORMAL) Cell Count Body Fluid (10/14/2024 11:08 AM YARD OPERATOR) Color Yellow Colorless, Yellow [facility] 10/14/2024 1:40 PM YARD OPERATOR LABORATORY Clarity Turbid(A) Clear YARIEL 10/14/2024 1:40 PM YARD OPERATOR LABORATORY Cell Count Fluid Source Pleural Cavity, Right 10/14/2024 1:40 PM YARD OPERATOR [facility] Total Nucleated Cells 12,185 /uL YARIEL 10/14/2024 1:40 PM YARD OPERATOR LABORATORY Pleural fluid RIGHT LUNG STRUCTURE / Unknown Non-blood Collection / Unknown 10/14/2024 11:08 AM YARD OPERATOR 10/14/2024 11:20 AM YARD OPERATOR Narrative [facility] - 10/14/2024 1:40 PM YARD OPERATOR No reference ranges have been established. This result should be interpreted in the context of the patient's clinical condition and compared to simultaneous measurement in the patient's blood. Small clot present, count may be inaccurate. Ortiz Chew MD LAB - BODY FLUIDS ORDERABLES Final Result LABORATORY [facility] Lab [address] [facility] Lab (1st floor, no room number) [place] [address], [place] * Cytology, non-gynecologic (10/14/2024 11:08 AM YARD OPERATOR) Final Diagnosis Specimen A. Pleural fluid for cytology: Interpretation: Negative for malignancy Other Findings: Acute inflammation present. Adequacy: Satisfactory for evaluation 10/16/2024 3:[address] [facility] Clinical Information 63 year old male 10/16/2024 3:[address] [facility] Gross Description A(A). Pleural Cavity, Right, :A. Pleural Cavity, Right, , Pleural Fluid: Received 50 ml of hazy, yellow fluid, processed as 1 Pap stained Autocyte, 1 Lopez stained cytospin and one hematoxylin and eosin stained cell block. 10/16/2024 3:40 PM [facility] Microscopic Description Microscopic examination is performed with findings supportive of the diagnosis as noted. 10/16/2024 3:[address] [facility] Performing Labs The technical component of this testing was completed at [facility]. Stain controls for all stains resulted within this report have been reviewed and show appropriate reactivity. 10/16/2024 3:40 PM [facility] Pleural fluid STRUCTURE OF RIGHT PLEURAL CAVITY / Unknown Non-blood Collection / Unknown 10/14/2024 11:08 AM YARD OPERATOR 10/14/2024 11:19 AM YARD OPERATOR Comment:Collect pleural flui d when Thoracentesis procedure performed Specimen must be collected in a Sterile - Plastic Leak proof lab container. Ortiz Chew MD LAB - BEAKER AP Final Result LABORATORY [facility] Acute Care Lab [address] 1st floor, [address] [place] [address], [place] [phone] SPECIALTY LABS Specialty Lab [address] [facility], [address] [place] [address] * Pleural fluid Aerobic Bacterial Culture Routine With Gram Stain (10/14/2024 11:08 AM YARD OPERATOR) Culture No Growth 10/19/2024 7:17 AM YARD OPERATOR [facility] Gram Stain Result No organisms seen 10/19/2024 7:17 AM YARD OPERATOR [facility] Gram Stain Result 4+ WBC seen 10/19/2024 7:17 AM YARD OPERATOR [facility] Pleural fluid RIGHT LUNG STRUCTURE / Unknown Non-blood Collection / Unknown 10/14/2024 11:08 AM YARD OPERATOR 10/14/2024 11:35 AM YARD OPERATOR Narrative [facility] - 10/19/2024 7:17 AM YARD OPERATOR Gram Stain quantification of host cells and microbiological organisms was done on a cytocentrifuged preparation. Ortiz Chew MD LAB - MICRO GENERAL ORDERABLE S Final Result [facility] Inf. Diseases Diag. Lab [address] [facility], [address] [place] [phone] * Protein fluid (10/14/2024 11:08 AM YARD OPERATOR) Protein Fluid Source Pleural Cavity, Right 10/14/2024 12:01 PM YARD OPERATOR [facility] Protein Total Fluid 3.0 g/dL 10/14/2024 12:01 PM YARD OPERATOR [facility] Other STRUCTURE OF RIGHT PLEURAL CAVITY / Unknown Non-blood Collection / Unknown 10/14/2024 11:08 AM YARD OPERATOR 10/14/2024 11:20 AM YARD OPERATOR Narrative [facility] - 10/14/2024 12:01 PM YARD OPERATOR No reference ranges have been established. This result should be interpreted in the context of the patient's clinical condition and compared to simultaneous measurement in the patient's blood. This is a lab developed test. It has not been cleared or approved by the FDA. FDA clearance is not required for clinical use. Ortiz Chew MD LAB - BODY FLUIDS ORDERABLES Final Result [facility] [address] Lab (1st floor, no room number) [place] [address] * Lactate dehydrogenase fluid (10/14/2024 11:08 AM YARD OPERATOR) LD Fluid Source Pleural Cavity, Right 10/14/2024 12:01 PM YARD OPERATOR [facility] Lactate dehydrogenase fluid 904 U/L 10/14/2024 12:01 PM YARD OPERATOR [facility] Other STRUCTURE OF RIGHT PLEURAL CAVITY / Unknown Non-blood Collection / Unknown 10/14/2024 11:08 AM YARD OPERATOR 10/14/2024 11:20 AM YARD OPERATOR Narrative [facility] - 10/14/2024 12:01 PM YARD OPERATOR No reference ranges have been established. This [...] FLUIDS ORDERABLES Final Result Performing Organization Address City/[facility]/ZIP Co de Phone Number [facility] [address] Lab (1st floor, no room number) [place] [address] * Glucose fluid (10/14/2024 11:08 AM YARD OPERATOR) Glucose Fluid Source Pleural Cavity, Right 10/14/2024 12:01 PM YARD OPERATOR [facility] Glucose fluid 205 mg/dL 10/14/2024 12:01 PM YARD OPERATOR [facility] Other STRUCTURE OF RIGHT PLEURAL CAVITY / Unknown Non-blood Collection / Unknown 10/14/2024 11:08 AM YARD OPERATOR 10/14/2024 11:20 AM YARD OPERATOR Narrative [facility] - 10/14/2024 12:01 PM YARD OPERATOR No reference ranges have been established. This [...] FLUIDS ORDERABLES Final Result Performing Organization Address City/[facility]/ZIP Co de Phone Number [facility] [address] Lab (1st floor, no room number) [address] [place] [address] * Lactate Dehydrogenase (10/14/2024 10:24 AM YARD OPERATOR) Lactate Dehydrogenase 165 0 - 250 U/L 10/14/2024 11:08 AM YARD OPERATOR LABORATORY Blood STRUCTURE OF LEFT HAND / Unknown Venipuncture / Unknown 10/14/2024 10:24 AM YARD OPERATOR 10/14/2024 10:34 AM YARD OPERATOR Ortiz Chew MD LAB - BLOOD ORDERABLES Final Result Performing Organization Address [facility] Co de Phone Number [facility] [address] Lab (1st floor, no room number) [place] [phone] [place] [address] * (ABNORMAL) Protein total (10/14/2024 10:24 AM YARD OPERATOR) Protein Total 5.8(L) 6.4 - 8.3 g/dL 10/14/2024 11:08 AM YARD OPERATOR LABORATORY Blood STRUCTURE OF LEFT HAND / Unknown Venipuncture / Unknown 10/14/2024 10:24 AM YARD OPERATOR 10/14/2024 10:34 AM YARD OPERATOR Ortiz Chew MD LAB - BLOOD ORDERABLES Final Result Performing Organization Address City/[facility]/ZIP Co de Phone Number [facility] [address] Lab (1st floor, no room number) [place] [phone] [place] [address] * (ABNORMAL) Hepatic panel (10/14/2024 10:24 AM YARD OPERATOR) Protein Total 5.8(L) 6.4 - 8.3 g/dL 10/14/2024 12:49 PM YARD OPERATOR LABORATORY Albumin 2.9(L) 3.5 - 5.2 g/dL 10/14/2024 12:49 PM YARD OPERATOR LABORATORY Bilirubin Total 0.4 <=1.2 mg/dL 10/14/2024 12:49 PM YARD OPERATOR LABORATORY Alkaline Phosphatase 108 40 - 150 U/L 10/14/2024 12:49 PM YARD OPERATOR LABORATORY AST 17 0 - 45 U/L 10/14/2024 12:49 PM YARD OPERATOR LABORATORY ALT 20 0 - 70 U/L 10/14/2024 12:49 PM YARD OPERATOR LABORATORY Bilirubin Direct 0.18 0.00 - 0.30 mg/dL 10/14/2024 12:49 PM YARD OPERATOR LABORATORY Blood STRUCTURE OF LEFT HAND / Unknown Venipuncture / Unknown 10/14/2024 10:24 AM YARD OPERATOR 10/14/2024 10:34 AM YARD OPERATOR us Ortiz Chew MD LAB - BLOOD ORDERABLES Final Result [facility] [address] Lab (1st floor, no room number) [place] [address] * (ABNORMAL) Sodium (10/13/2024 7:55 PM YARD OPERATOR) Only the most recent of3 resultswithin the time period is included. Sodium 126(L) 135 - 145 mmol/L 10/13/2024 8:30 PM YARD OPERATOR LABORATORY Blood STRUCTURE OF LEFT HAND / Unknown Venipuncture / Unknown 10/13/2024 7:55 PM YARD OPERATOR 10/13/2024 8:03 PM YARD OPERATOR us Tiarra Smalls PA-C LAB - BLOOD ORDERABLES F inal Result [facility] [address] Lab (1st floor, no room number) [place] [address] * (ABNORMAL) Comprehensive metabolic panel (10/13/2024 7:01 AM YARD OPERATOR) Only the most recent of2 resultswithin the time period is included. Sodium 126(L) 135 - 145 mmol/L 10/13/2024 7:28 AM [facility] Potassium 4.4 3.4 - 5.3 mmol/L 10/13/2024 7:28 AM [facility] Carbon Dioxide (CO2) 24 22 - 29 mmol/L 10/13/2024 7:28 AM [facility] Anion Gap 11 7 - 15 mmol/L 10/13/2024 7:28 AM [facility] Urea Nitrogen 24.7(H) 8.0 - 23.0 mg/dL 10/13/2024 7:28 AM [facility] Creatinine 0.80 0.67 - 1.17 mg/dL 10/13/2024 7:28 AM [facility] GFR Estimate >90 >60 mL/min/1.7 3m2 10/13/2024 7:28 AM [facility] Comment:eGFR calculated us2020 CKD-EPI equation. Calcium 8.9 8.8 - 10.4 mg/dL 10/13/2024 7:28 AM [facility] Chloride 91(L) 98 - 107 mmol/L 10/13/2024 7:28 AM [facility] Glucose 318(H) 70 - 99 mg/dL 10/13/2024 7:28 AM [facility] Alkaline Phosphatase 95 40 - 150 U/L 10/13/2024 7:28 AM [facility] AST 18 0 - 45 U/L 10/13/2024 7:28 AM [facility] ALT 20 0 - 70 U/L 10/13/2024 7:28 AM [facility] Protein Total 5.9(L) 6.4 - 8.3 g/dL 10/13/2024 7:28 AM [facility] Albumin 3.3(L) 3.5 - 5.2 g/dL 10/13/2024 7:28 AM [facility] Bilirubin Total 0.8 <=1.2 mg/dL 10/13/2024 7:28 AM [facility] Blood STRUCTURE OF LEFT HAND / Unknown Venipuncture / Unknown 10/13/2024 7:01 AM YARD OPERATOR 10/13/2024 7:07 AM [facility] Arielle Martel DO LAB - BLOOD ORDERABLES Fin al Result LABORATORY [facility] [address] [facility] Lab (1st floor, no room number) [place] [address], [facility] * Legionella Urinary Antigen and Streptococcus pneumoniae antigen (10/12/2024 7:29 PM YARD OPERATOR) Legionella pneumophila serogroup 1 urinary antigen Negative Negative YARIEL 10/13/2024 12:56 AM YARD OPERATOR [facility] Comment:A negative result do es not exclude the possibility of a Legionella infection, as it can be caused by other serogroups and species of Legionella. Streptococcus pneumoniae antigen Negative Negative YARIEL 10/13/2024 12:56 AM YARD OPERATOR [facility] Comment:A negative result do es not exclude a Streptococcus pneumoniae infection. Legionella pneumophila Urinary/Strep pneumoniae Antigen Specimen Type Urine 10/13/2024 12:56 AM YARD OPERATOR [facility] Urine URINE SPECIMEN OBTAINED BY CLEAN CATCH PROCEDURE / Unknown Non-blood Collection / Unknown 10/12/2024 7:29 PM YARD OPERATOR 10/12/2024 7:36 PM YARD OPERATOR Narrative [facility] - 10/13/2024 12:56 AM YARD OPERATOR The result of this test as well [...] ORDERA BLES Final Result [facility] Inf. Diseases Diag. Lab [address] [facility], [address] [place] [address], [facility] * Troponin T, High Sensitivity (10/12/2024 2:16 PM YARD OPERATOR) Only the most recent of2 resultswithin the time period is included. Troponin T, High Sensitivity 14 <=22 ng/L 10/12/2024 2:42 PM YARD OPERATOR LABORATORY Comment: Either a High Sensitivity Troponin [...] Unknown Venipuncture / Unknown 10/12/2024 2:16 PM YARD OPERATOR 10/12/2024 2:20 PM YARD OPERATOR us Wilber Ndiaye MD LAB - BLOOD ORDERABLES Final Res ult LABORATORY [facility] [address] [facility] Lab (1st floor, no room number) [place] [address], [facility] * (ABNORMAL) UA with Microscopic (10/12/2024 1:50 PM YARD OPERATOR) Color Urine Yellow Colorless, Straw, Light Yellow, Yellow 10/12/2024 2:10 PM YARD OPERATOR LABORATORY Appearance Urine Clear Clear 10/12/19 25 2:10 PM YARD OPERATOR LABORATORY Glucose Urine 150(A) Negative mg/dL 10/12/2024 2:10 PM YARD OPERATOR LABORATORY Bilirubin Urine Negative Negative 2:10 PM YARD OPERATOR LABORATORY Ketones Urine Trace(A) Negative mg/dL 10/12/2024 2:10 PM YARD OPERATOR LABORATORY Specific [place] Urine 1.010 1.003 - 1.035 10/12/2024 2:10 PM YARD OPERATOR LABORATORY Blood Urine Negative Negative 10/12/2024 2:10 PM YARD OPERATOR LABORATORY pH Urine 6.0 5.0 - 7.0 10/12/2024 2:10 PM YARD OPERATOR LABORATORY Protein Albumin Urine 30(A) Negative mg/dL 10/12/2024 2:10 PM YARD OPERATOR LABORATORY Urobilinogen Urine Normal Normal, 2.0 mg/dL 10/12/2024 2:10 PM YARD OPERATOR LABORATORY Nitrite Urine Negative Negative 10/12/2024 2:10 PM YARD OPERATOR LABORATORY Leukocyte Esterase Urine Negative Negative 10/12/2024 2:10 PM YARD OPERATOR LABORATORY Mucus Urine Present(A) None Seen /LPF 10/12/2024 2:10 PM YARD OPERATOR LABORATORY RBC Urine 1 <=2 /HPF 10/12/2024 2:10 PM YARD OPERATOR LABORATORY WBC Urine 4 <=5 /HPF 10/12/2024 2:10 PM YARD OPERATOR LABORATORY Squamous Epithelials Urine <1 <=1 /HPF 10/12/2024 2:10 PM YARD OPERATOR LABORATORY Urine MID-STREAM URINE SPECIMEN / Unknown Non-blood Collection / Unknown 10/12/2024 1:50 PM YARD OPERATOR 10/12/2024 1:57 PM YARD OPERATOR us Wilber Ndiaye MD LAB - URINE ORDERABLES Final Res ult [facility] [address] Lab (1st floor, no room number) [place] [address], [facility] * CT Chest (PE) Abdomen Pelvis w Contrast (10/12/2024 12:19 PM YARD OPERATOR) Anatomical Region Laterality Modality Chest, SUBRAD CT BODY, UMP CT CHEST, RAD CT Computed Tomography 10/12/2024 12:1 9 PM YARD OPERATOR Impressions 10/12/2024 2:10 PM YARD OPERATOR IMPRESSION: 1. No pulmonary embolism. 2. Large consolidation at the right lung base with bilateral patchy airspace opacity within the lower lobes concerning for pneumonia. 3. Multiple low-attenuation lesions are noted within the liver which are indeterminant although cyst or metastatic disease. Further workup is suggested. Narrative 10/12/2024 2:10 PM YARD OPERATOR EXAM: CT CHEST PE ABDOMEN PELVIS W CONTRAST LOCATION: [facility] DATE: 10/12/2024 INDICATION: Right inferior chest wall [...] CHEST PE ABDOMEN PELVIS W CONTRAST LOCATION: [facility] DATE: 10/12/2024 INDICATION: Right inferior chest wall [...] Blood Culture Arm, Left (10/12/2024 11:28 AM YARD OPERATOR) Only the most recent of2 resultswithin the time period is included. Culture No Growth 10/17/2024 3:32 PM YARD OPERATOR [facility] Blood STRUCTURE OF LEFT UPPER LIMB / Unknown Venipuncture / Unknown 10/12/2024 11:28 AM YARD OPERATOR 10/12/2024 11:32 AM YARD OPERATOR us Wilber Ndiaye MD LAB - MICRO GENERAL ORDERABLES F inal Result [facility] Inf. Diseases Diag. Lab [address] [facility], [address] [place] [address], [facility] * Creatinine POCT (10/12/2024 11:00 AM YARD OPERATOR) Creatinine POCT 1.1 0.7 - 1.3 mg/dL 10/12/2024 11:04 AM YARD OPERATOR [facility] POC GFR, ESTIMATED POCT >60 >60 mL/min/1.7 3m2 10/12/2024 11:04 AM YARD OPERATOR [facility] POC Blood, venous BLOOD SPECIMEN / Unknown 10/12/2024 11:00 AM YARD OPERATOR 10/12/2024 11:04 AM YARD OPERATOR us Wilber Ndiaye MD LAB - BEAKER POCT Final Result [facility] POC [facility] [address] Lab (1st floor, no room number) [place] [address], [facility] * (ABNORMAL) iStat Gases (lactate) venous, POCT (10/12/2024 10:59 AM YARD OPERATOR) Lactic Acid POCT 1.1 <=2.0 mmol/L 10/12/2024 11:03 AM YARD OPERATOR [facility] POC Bicarbonate Venous POCT 31(H) 21 - 28 mmol/L 10/12/2024 11:03 AM YARD OPERATOR [facility] POC O2 Sat, Venous POCT 56(L) 70 - 75 % 10/12/2024 11:03 AM YARD OPERATOR [facility] POC pCO2 Venous POCT 49 40 - 50 mm Hg 10/12/2024 11:03 AM YARD OPERATOR [facility] POC pH Venous POCT 7.40 7.32 - 7.43 10/12/2024 11:03 AM YARD OPERATOR [facility] POC pO2 Venous POCT 30 25 - 47 mm Hg 10/12/2024 11:03 AM YARD OPERATOR [facility] POC Blood, venous BLOOD SPECIMEN / Unknown 10/12/2024 10:59 AM YARD OPERATOR 10/12/2024 11:03 AM YARD OPERATOR us Wilber Ndiaye MD LAB - BEAKER POCT Final Result [facility] [address] Lab (1st floor, no room number) [place] [address], [facility] * Extra Green Top ([place] Heparin) Tube (10/12/2024 10:56 AM YARD OPERATOR) Hold Specimen [facility] 10/12/2024 12:05 PM YARD OPERATOR [facility] Blood STRUCTURE OF RIGHT UPPER LIMB / Unknown Venipuncture / Unknown 10/12/2024 10:56 AM YARD OPERATOR 10/12/2024 11:02 AM YARD OPERATOR us Wilber Ndiaye MD LAB - BLOOD ORDERABLES Final Res ult Performing Organization Address City/[facility]/ZIP Co de Phone Number [facility] [address] Lab (1st floor, no room number) [place] [address], [facility] * Extra Red Top Tube (10/12/2024 10:56 AM YARD OPERATOR) Hold Specimen [facility] 10/12/2024 12:05 PM YARD OPERATOR [facility] Blood STRUCTURE OF RIGHT UPPER LIMB / Unknown Venipuncture / Unknown 10/12/2024 10:56 AM YARD OPERATOR 10/12/2024 11:02 AM YARD OPERATOR us Wilber Ndiaye MD LAB - BLOOD ORDERABLES Final Res ult [facility] [address] Lab (1st floor, no room number) [place] [phone], [facility] * Extra Blue Top Tube (10/12/2024 10:56 AM YARD OPERATOR) Hold Specimen [facility] 10/12/2024 12:05 PM YARD OPERATOR [facility] Blood STRUCTURE OF RIGHT UPPER LIMB / Unknown Venipuncture / Unknown 10/12/2024 10:56 AM YARD OPERATOR 10/12/2024 11:02 AM YARD OPERATOR us Wilber Ndiaye MD LAB - BLOOD ORDERABLES Final Res ult [facility] LABORATORY [facility] [address] Lab (1st floor, no room number) [place] [address], [facility] * Influenza A/B, RSV and SARS-CoV2 PCR (COVID-19) Nasopharyngeal (10/12/2024 10:39 AM YARD OPERATOR) Influenza A PCR Negative Negative 10/12/2024 11:31 AM YARD OPERATOR LABORATORY Influenza B PCR Negative Negative 10/12/2024 11:31 AM YARD OPERATOR LABORATORY RSV PCR Negative Negative 10/12/2024 11:31 AM YARD OPERATOR LABORATORY SARS CoV2 PCR Negative Negative 10/12/2024 11:31 AM YARD OPERATOR LABORATORY Comment:NEGATIVE: SARS-CoV-2 (COVID-19) RNA not detected, presumed negative. Swab NASOPHARYNGEAL STRUCTURE / Unknown Non-blood Collection / Unknown 10/12/2024 10:39 AM YARD OPERATOR 10/12/2024 10:49 AM YARD OPERATOR Narrative LABORATORY - 10/12/2024 11:31 AM YARD OPERATOR Testing was performed using the Xpert Xpress CoV2/Flu/RSV Assay on the [employer] GeneXpert Instrument. This test should be ordered [...] management. This test was validated by the [facility]. These laboratories are certified under the Clinical Laboratory Improvement Amendments of 1988 (CLIA-88) as qualified to perfom high complexity laboratory testing. us Wilber Ndiaye MD LAB - MICRO GENERAL ORDERABLES F inal Result [facility] [address] [facility] Lab (1st floor, no room number) [place] [address], [facility] * EKG Cardiac - HIM Scan (10/12/2024 12:00 AM YARD OPERATOR) Only the most recent of2 resultswithin the time period is included. 10/12/2024 us Provider Outside ECG ORDERABLES Final Result * Eye Exam - HIM Scan (06/28/2024) RETINOPATHY UNKNOWN Narrative Candis Momin - 06/28/2024 Eye exam with ophthalmology on this date: 06/28/24 Exam Location: [facility] Message us Patient Reported OTHER Final Result * COLONOSCOPY (05/14/2023 8:14 AM CDT) COLONOSCOPY [facility] Patient Name: Alena Rae Procedure Date: 05/14/2023 [...] continuously. The Olympus Adult Colonoscope, Model # CF-SI620L, [place]ora # [id number], SN # [id number] was introduced through the anus and advanced to the terminal ileum, with identification of the appendiceal orifice and IC valve. The colonoscopy was performed without difficulty. The patient tolerated the procedure well. The quality of the bowel preparation was evaluated using the BBPS ([place] Bowel Preparation Scale) with scores of: Right [...] pathology results. Procedure Code(s): --- Professional --- 58043, Colonoscopy, flexible; with biopsy, single or multiple Diagnosis Code(s): --- Professional --- K64.4, Residual hemorrhoidal skin tags Z12.11, Encounter for screening for malignant neoplasm of colon D12.2, Benign neoplasm of ascending colon K57.30, Diverticulosis of large intestine without perforation or abscess without bleeding CPT copyright 2021 [employer]. All rights reserved. The codes documented in this report are preliminary and upon community organization director review may be revised to meet current [...] established for newborns, infants, and children NR [facility] Blood specimen (specimen) 11/21/2016 7:44 AM CDT 11/21/2016 7:49 AM CDT us Wilber Maharaj MD LAB - BLOOD ORDERABLES Final Res ult Performing Organization Address City/[facility]/ZIP Co de Phone Number [facility] [address] [place] [address] from Last 3 Months or Most Recently Relevant to Health Maintenance Insurance [facility] [place] [employer] [facility] Advance Directives For more information, please contact: [phone] * Full Code (Latest Code Status on [...] with patie nt/legal decision maker Care Teams Superintendent Laundry Relationship Specialty [place] [address] [place] [id number] PCP - General Family Practice 11/21/16 Stephie Mahoney MD [address] [place] [address] [phone] Endocrinology, Diabetes, and Metabolism 04/22/21 Federica Foster, RN [address] [place] [address] [phone] Clinical Athletic Instructor Diabetes Education 04/22/[address] [place] [address] [phone] Clinical Athletic Instructor Nutrition 04/22/21 Stephie Mahoney MD [address] [place] [address] [phone] Assigned Endocrinology Provider 05/08/21 Olga Garcia, RN Specialty Med Specialist INTERNAL MEDICINE - ENDOCRINOLOGY, DIABETES & METABOLISM 09/29/22 Junior Chavira MD [address] [place] [id number] Cardiovascular Disease 05/29/24 [place] [address] [place] [address] Assigned PCP 07/12/24 Junior Chavira MD [address] [place] [id number] Assigned Heart and Vascular Provider 08/11/24 Coni Dhaliwal, ZOO KEEPER [address] [place] [id number] Nurse Practitioner Psychiatry & Neurology Vascular Neurology 11/04/24 Anel Denson NP [address] [id number] Nurse Practitioner Psychiatry & Neurology Vascular Neurology 11/04/24 Angel Balbuena MD [address] [place], [place] [address] Assigned Heart and Vascular Surgical Provider 12/10/24
--- OUTSIDE RECORDS SUMMARY | 2024-12-12 00:23 | XMS_ITS | Encounter Summary ---
Author Organization [place] Address [address] [place] [address]. [place] [address] Care Team Providers Care Salesperson [employer] Furn[employer] Name Role Phone Wilber Vidales MD Primary Care Provider [phone] Stephie Mahoney MD Unavailable [phone] Federica Foster RN Unavailable [phone] Unavailable [phone] Stephie Mahoney MD Unavailable [phone] Olga Garcia RN Unavailable [phone] Junior Chavira MD Unavailable [phone] Shantel Walker MD Unavailable [phone] Junior Chavira MD Unavailable [phone] Coni Dhaliwal CNP Unavailable [phone] Anel Long NP Unavailable [phone] Encounter Details Date Type Department Care Team (Late st Contact Info) Description 12/09/2024 Telephone [facility] Endocrinology [facility] [place] [id number] [facility] 3rd [place] [address] Rebecca Harvey, RN Social History [...] Answer Date Recorded PHQ-2 Score 0 11/14/2024 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 Gender Identity Male 03/03/2019 9:24 PM CDT Sexual Orientation Straight 03/03/2019 9: 24 PM CDT documented as of this encounter Miscellaneous Notes * Telephone Encounter - Rebecca Harvey RN - 12/09/2024 3:35 PM CDT Called patient with no answer but left a detailed message and [facility]Rebecca Harvey RN on 12/09/2024 at 3:36 [...] Info) Description 12/17/2024 9:30 AM CDT Lab [facility] [address] [place] [address] 12/23/2024 4:00 PM CDT Office Visit [address] [phone] Cyrus Aleman MD [address] [place] [address] 01/27/2025 10:00 AM CDT Office Visit [facility] Neurology [facility] [address] [place] [address] [address] [place] [address] Anel Long NP [address] [place], [place] [phone] Coni Dhaliwal, WINDOWS SYSTEM ADMIN [address] [address] 04/14/2025 11:15 AM CDT Office Visit [facility] Heart [facility] [address] [facility] [address] [place] [phone] Inessa Esteves DO [address] [place] [address] 06/05/2025 12:30 PM CDT Office Visit [facility] End[facility]inology Clinic [address] [phone] Stephie Mahoney MD [address] [place] [address] 11/13/2025 11:00 AM CDT Virtual Visit [facility] Endocrinology [address] [address] Stephie Mahoney MD [address] [place] [address] [phone] documented as of this encounter Visit Diagnoses Not on filedocumented in this encounter Care Teams Salesperson [employer] Relationship Specialty [place] [address] [facility] [place] [address] PCP - General Family Practice 11/21/16 Stephie Mahoney MD [address] [place] [address] [phone] Endocrinology, Diabetes, and Metabolism 04/22/21 Federica Foster, RN [address] [place] [address] [phone] Residency Director Diabetes Education 04/22/[address] [place] [address] [phone] Residency Director Nutrition 04/22/21 Stephie Mahoney MD [address] [facility] 101 [place], [place] 14[address]85 Assigned Endocrinology Provider 05/08/21 Olga Garcia, RN Specialty Outreach Rep INTERNAL MEDICINE - ENDOCRINOLOGY, DIABETES & METABOLISM 09/29/22 Junior Chavira MD [address] [place] [address] Cardiovascular Disease 05/29/24 [place] [address] [place] [address] Assigned PCP 07/12/24 Junior Chavira MD [address] [place] [phone] Assigned Heart and Vascular Provider 08/11/24 Coni Dhaliwal, COREY [address] [place] [address] Nurse Practitioner Psychiatry & Neurology Vascular Neurology 11/04/24 Anel Long, TARIK [address] [place] [address] Nurse Practitioner Psychiatry & Neurology Vascular Neurology 11/04/24 documented as of this encounter
--- OUTSIDE RECORDS SUMMARY | 2024-12-12 00:23 | XMS_ITS | Encounter Summary ---
Author Organization [facility] Address [address] [place] [address]. [place] [address] Care Team Providers Care Utilization Review Coordinator Name Role Phone Wilber Vidales MD Primary Care Provider [phone] Stephie Mahoney MD Unavailable [phone] Federica Foster RN Unavailable [phone] Unavailable [phone] Stephie Mahoney MD Unavailable [phone] Olga Garcia RN Unavailable [phone] Junior Chavira MD Unavailable [phone] Shantel Walker MD Unavailable [phone] Junior Chavira MD Unavailable [phone] Coni Dahliwal CNP Unavailable [phone] Anel Long NP Unavailable [phone] Angel Balbuena MD Unavailable [phone] Encounter Details Date Type Department Care Team (Late st Contact Info) Description 12/09/2024 [facility] Medical Advice [facility] Endocrinology Clinic [address] 3rd [place] [address] Rebecca Harvey, RN Social History [...] Answer Date Recorded PHQ-2 Score 0 11/14/2024 [facility] - Occupational Stress Questionnaire [...] in an overnight alf, or couch-surfing.) Yes 10/29/2024 Are you worried [...] AM CDT 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 [employer] Gender Identity Male 03/03/2019 9:24 PM CDT Sexual Orientation Straight 03/03/2019 9: 24 PM CDT documented as of this encounter Plan of Treatment Upcoming Encounters Date Type Department Care Team (Late st Contact Info) Description 12/17/2024 9:30 AM CDT [place] [phone] [place] [phone] 12/23/2024 4:00 PM CDT Office Visit [facility] [address] [facility] [address] [place] [phone] Cyrus Aleman MD [address] [place] [address] 01/27/2025 10:00 AM CDT Office Visit [facility] Neurology Clinic [place] [address] [facility] 200 [place] [phone] Anel Long, LOT ASSOCIATE [address] [facility] [place] [place], [place] [address] Coni Dhaliwal, COREY [address] [facility] 450 [place], [place] [address] 04/14/2025 11:15 AM CDT Office Visit [facility] Heart [facility] [address] [facility] [address] [place] [phone] Inessa Esteves DO [address] [facility] [address] [place], [place] [phone] 06/05/2025 12:30 PM CDT Office Visit [facility] Endocrinology Clinic [address] [phone] Stephie Mahoney MD [address] [phone] 11/13/2025 11:00 AM CDT Virtual Visit [facility] Endocrinology Clinic [address] [phone] Stephie Mahoney MD [address] [phone] documented as of this encounter Visit Diagnoses Not on filedocumented in this encounter Care Teams Utilization Review Coordinator Relationship Specialty [place] [address] [place] [address] PCP - General Family Practice 11/21/16 Stephie Mahoney MD [address] [place] [address] Endocrinology, Diabetes, and Metabolism 04/22/21 Federica Foster RN [address] [place] [address] [phone] Linoleum Installer Diabetes Education 04/22/[address] [place] [address] Linoleum Installer Nutrition 04/22/21 Stephie Mahoney MD [address] [place] [address] Assigned Endocrinology Provider 05/08/21 Olga Garcia RN Specialty Weaving Machine Operator INTERNAL MEDICINE - ENDOCRINOLOGY, DIABETES & METABOLISM 09/29/22 Junior Chavira MD [address] [place] [address] Cardiovascular Disease 05/29/24 [place] [address] [place] [address] Assigned PCP 07/12/24 Junior Chavira MD [address] [place], [place] [address] Assigned Heart and Vascular Provider 08/11/24 Coni Dhaliwal, COREY [address] [place] [phone] Nurse Practitioner Psychiatry & Neurology Vascular Neurology 11/04/24 Anel Long NP [address] 904345 Nurse Practitioner Psychiatry & Neurology Vascular Neurology 11/04/24 Angel Balbuena MD [address] [place], [place] 5[address] Assigned Heart and Vascular Surgical Provider 12/10/24 documented as of this encounter
--- OUTSIDE RECORDS SUMMARY | 2024-12-12 00:24 | XMS_ITS | Encounter Summary ---
Author Organization [facility] Address [address] [place] [address]. [place] [address] Care Team Providers Care Web Site Project Manager Name Role Phone Wilber Vidales MD Primary Care Provider [phone] Stephie Mahoney MD Unavailable [phone] Federica Foster RN Unavailable [phone] Unavailable [phone] Stephie Mahoney MD Unavailable [phone] Olga Garcia RN Unavailable [phone] Junior Chavira MD Unavailable [phone] Shantel Walker MD Unavailable [phone] Junior Chavira MD Unavailable [phone] Reason for Referral * CV Testing (Routine) - Pending Review Specialty Diagnoses / Procedures Referred By Contac t Referred To Contact Diagnoses 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 of right middle cerebral artery (H) Procedures ZIO PATCH MAIL OUT Anel Long, POLICY SPECIALIST [address] [place] [address] Phone: tel: fax: Referral ID Status Reason Start Date Expiration Date V isits Requested Visits Authorized [id number] Pending Review 10/27/2024 10/27/2025 1 1 * (Routine: Next available opening) - Pending Review Specialty Diagnoses / Procedures Referred By Contac t Referred To Contact Diagnoses 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 of right middle cerebral artery (H) Procedures Stroke Hospital Follow Up (for neurologist use only) Anel Long NP [address] [place] [address] Phone: tel: fax: Referral ID Status Reason Start Date Expiration Date V isits Requested Visits Authorized [id number] Pending Review 10/27/2024 10/27/2025 1 1 * Care Coordination (Routine: Next available opening) - Pending Review Specialty Diagnoses / Procedures Referred By Contac t Referred To Contact Diagnoses Pneumonia of both lower lobes due to infectious organism Ortiz Chew MD [address] [place] [address] Phone: tel: fax: Referral ID Status Reason Start Date Expiration Date V isits Requested Visits Authorized [id number] Pending Review 10/14/2024 10/14/2025 1 1 Question Answer Reason for Referral: Care Transition Transition: Inpatient to outpatient Clinical Staff have discussed the Care Coordination Referral with the patient and/or caregiver: No Comments OGRAPHIC AIDE Reason for Visit * Reason Comments Shortness of Breath Fall * Auth/Cert Specialty Diagnoses / Procedures Referred By Contac t Referred To Contact EMERGENCY MEDICINE Diagnoses Hyponatremia Pneumonia of both lower lobes due to infectious organism Weakness generalized RUQ abdominal pain Acute respiratory failure with hypoxia (H) Fall, initial encounter [facility] [address] [place] [address] Phone: tel:[phone] fax: Referral ID Status Reason Start Date Expiration Date Visits Re quested Visits Authorized [id number] 1 1 Encounter Details Date Type Department Care Team (Late st Contact Info) Description 10/12/2024 10:41 AM PHOTOGRAPHIC AIDE - 10/29/2024 2:00 PM CDT Hospital Encounter [facility] 3 Medical Surgical [address] [place] [address] Wilber Ndiaye MD [facility] [address] [place], [place] [address] Arielle Martel, [address] [place], [place] [address] Pneumonia of both lower lobes due to [...] Answer Date Recorded PHQ-2 Score 0 11/23/2023 [facility] Occupational Stress Questionnaire Answer [...] AM CDT Legal Sex Male 3:40 AM PHOTOGRAPHIC AIDE Gender Identity Male 03/03/2019 9:24 PM CDT [...] lb 5.5 oz) 10/23/2024 5:15 P M PHOTOGRAPHIC AIDE Height 175.3 cm (5' 9) 10/15/2024 6:30 AM PHOTOGRAPHIC AIDE Body Mass Index 28.55 10/15/2024 6:30 AM PHOTOGRAPHIC AIDE documented in this encounter Discharge Summaries * Nishant Sands MD - 10/29/2024 10:[address] [facility] Hospitalist Discharge Summary Date of Admission: 10/12/2024 [...] NSR. - Remains in NSR - continue EVENT STAFF DOAC Hyponatremia: Resolved. Acute on chronic -initially [...] until clinically improved. He follows in the [facility] system and this can likely be done [...] Code Time Spent on this Encounter I, Nishant Sands MD, MD, personally saw the patient today and spent greater than 30 minutes discharging this patient. Nishant Sands MD, MD [place] [address] MEDICAL SURGICAL [address] [place] [address] Physical Exam Vital Signs: Temp: 97.6 ??F [...] Hospital Follow Up (for neurologist use only) [facility] will call you to coordinate care as prescribed by your provider. If you don???t hear from a sales representative groceries within 2 business days, please call . [...] CHEST PE ABDOMEN PELVIS W CONTRAST LOCATION: [facility] DATE: 10/12/2024 INDICATION: Right inferior chest [...] Narrative EXAM: CT HEAD W/O CONTRAST LOCATION: [facility] DATE: 10/12/2024 INDICATION: Fall, on eliquis, eval [...] EXAM: XR CHEST PORT 1 VIEW LOCATION: [facility] DATE: 10/14/2024 INDICATION: worsening hypoxia. previous xray [...] 1. RIGHT THORACENTESIS 2. ULTRASOUND GUIDANCE LOCATION: [facility] DATE: 10/14/2024 INDICATION: Pleural effusion. PROCEDURE: Informed consent obtained. Time out performed. The chest was prepped and draped in sterile fashion. 10 mL of 1 % lidocaine was infused into the local soft tissues. Under direct ultrasound guidance, a 5 Nigerian catheter system was placed into the pleural effusion. 0.1 liters of clear yellow fluid were removed and sent to lab, if requested. Patient tolerated procedure well. Ultrasound imaging was obtained and placed in the patient's permanent medical record. Impression IMPRESSION: Status post right ultrasound-guided thoracentesis. Reference CPT Code: 87810 MR Liver wo & w Contrast Narrative EXAM: MR LIVER W/O and W CONTRAST LOCATION: [facility] DATE: 10/14/2024 INDICATION: lesions seen on [...] MR BRAIN W/O and W CONTRAST LOCATION: [facility] DATE: 10/15/2024 INDICATION: h o right [...] Narrative EXAM: CT CHEST W/O CONTRAST LOCATION: [facility] DATE: 10/15/2024 INDICATION: R pleural effusion COMPARISON: Chest x-ray yesterday and chest CT on 10/12/2024 TECHNIQUE: CT chest without IV contrast. Multiplanar reformats were obtained. Dose reduction techniques were used. CONTRAST: None. FINDINGS: LUNGS AND PLEURA: A yfymq-ju-prlzxwpf sized partly loculated right pleural effusion predominantly [...] Narrative PROCEDURE: Ultrasound guided right sided 10 Nigerian chest tube placement DATE: 10/16/2024 MEDICATIONS: 1% [...] Lidocaine. Under direct ultrasound guidance, a 5 Nigerian Yueh needle was advanced into the pleural space via an intercostal approach. The catheter was advanced off of the needle. A 0.035 guidewire was advanced through the micropuncture sheath and the tract was serially dilated. A 10 Nigerian locking loop chest tube was placed with [...] in stable condition. Impression IMPRESSION: Right-sided 10 Nigerian chest tube placement under ultrasound guidance. XR Chest Port 1 View Narrative EXAM: XR CHEST PORT 1 VIEW LOCATION: [facility] DATE: 10/17/2024 INDICATION: post right chest tube placement for right pleural effusion COMPARISON: 10/15/2024 Impression IMPRESSION: Decreased right pleural effusion with a right chest tube in place. Stable small left pleural effusion and bibasilar atelectasis. Median sternotomy and aortic valvular prosthesis. No pneumothorax. XR Chest Port 1 View Narrative EXAM: XR CHEST PORTABLE 1 VIEW LOCATION: [facility] DATE: 10/19/2024 INDICATION: Chest tube, follow-up effusion. [...] EXAM: XR CHEST PORT 1 VIEW LOCATION: [facility] DATE: 10/22/2024 INDICATION: Pleural effusion, chest tube. [...] EXAM: XR CHEST PORT 1 VIEW LOCATION: [facility] DATE: 10/23/2024 INDICATION: pleural effusion, chest [...] Narrative EXAM: CT CHEST W/O CONTRAST LOCATION: [facility] DATE: 10/23/2024 INDICATION: follow up R [...] MEDIASTINUM/AXILLAE: Right hilar adenopathy appears unchanged. A sales representative groceries lymph node measures1.4 cm. No new lymphadenopathy. [...] Narrative EXAM: CT HEAD W/O CONTRAST LOCATION: [facility] DATE: 10/23/2024 INDICATION: Confusion, AMS COMPARISON: [...] EXAM: CTA HEAD NECK W CONTRAST LOCATION: [facility] DATE: 10/27/2024 INDICATION: Right frontal infarct; [...] artery stenoses. Mild multifocal likely atherosclerotic bilateral academic associate stenoses; patent P1-proximal P3 segment branches of the academic associate without high-grade stenosis. No aneurysm or high-flow [...] effusion with compressive atelectasis. A partially imaged nnpuw-zsibrpxp-shqvm left pleural effusion without evidence of loculation. [...] described. Echocardiogram Complete Value LVEF 65-70% [facility] [id number]^JARETT^ANEL^[facility] Echocardiography Laboratory [address] [place] [address] Name: ALENA RAE : 1960 Study Date: 10/27/2024 12:32 PM Age: 63 yrs Gender: Male Patient Location: [facility] Reason For Study: CVA Ordering Physician: [...] 10/12/24 Omnipod BASAL RATES and times: Continuous (6775-8238: 0.9 units/hour CARB RATIO and times: 0199-8294: 1 unit for 10g of carbohydrates Corection Factor (Sensitivity) and times: 5691-8399: 1 unit lowers BG by 40 mg/dL [...] Torres MD - 10/27/2024 9:24 AM CDT [facility] Hospitalist Discharge Summary Date of Admission: [...] minutes discharging this patient. Wilber Torres MD [place] [address] MEDICAL SURGICAL [address] [place] [address] Physical Exam Vital Signs: Temp: 98.5 ??F [...] CHEST PE ABDOMEN PELVIS W CONTRAST LOCATION: [facility] DATE: 10/12/2024 INDICATION: Right inferior chest [...] Narrative EXAM: CT HEAD W/O CONTRAST LOCATION: [facility] DATE: 10/12/2024 INDICATION: Fall, on eliquis, eval [...] EXAM: XR CHEST PORT 1 VIEW LOCATION: [facility] DATE: 10/14/2024 INDICATION: worsening hypoxia. previous xray [...] 1. RIGHT THORACENTESIS 2. ULTRASOUND GUIDANCE LOCATION: [facility] DATE: 10/14/2024 INDICATION: Pleural effusion. PROCEDURE: Informed consent obtained. Time out performed. The chest was prepped and draped in sterile fashion. 10 mL of 1 % lidocaine was infused into the local soft tissues. Under direct ultrasound guidance, a 5 Nigerian catheter system was placed into the pleural effusion. 0.1 liters of clear yellow fluid were removed and sent to lab, if requested. Patient tolerated procedure well. Ultrasound imaging was obtained and placed in the patient's permanent medical record. Impression IMPRESSION: Status post right ultrasound-guided thoracentesis. Reference CPT Code: 12048 MR Liver wo & w Contrast Narrative EXAM: MR LIVER W/O and W CONTRAST LOCATION: [facility] DATE: 10/14/2024 INDICATION: lesions seen on [...] MR BRAIN W/O and W CONTRAST LOCATION: [facility] DATE: 10/15/2024 INDICATION: h o right [...] Narrative EXAM: CT CHEST W/O CONTRAST LOCATION: [facility] DATE: 10/15/2024 INDICATION: R pleural effusion COMPARISON: Chest x-ray yesterday and chest CT on 10/12/2024 TECHNIQUE: CT chest without IV contrast. Multiplanar reformats were obtained. Dose reduction techniques were used. CONTRAST: None. FINDINGS: LUNGS AND PLEURA: A xdiam-iw-qxsgwerj sized partly loculated right pleural effusion predominantly [...] Narrative PROCEDURE: Ultrasound guided right sided 10 Nigerian chest tube placement DATE: 10/16/2024 MEDICATIONS: 1% [...] Lidocaine. Under direct ultrasound guidance, a 5 Nigerian Yueh needle was advanced into the pleural space via an intercostal approach. The catheter was advanced off of the needle. A 0.035 guidewire was advanced through the micropuncture sheath and the tract was serially dilated. A 10 Nigerian locking loop chest tube was placed with [...] in stable condition. Impression IMPRESSION: Right-sided 10 Nigerian chest tube placement under ultrasound guidance. XR Chest Port 1 View Narrative EXAM: XR CHEST PORT 1 VIEW LOCATION: [facility] DATE: 10/17/2024 INDICATION: post right chest tube placement for right pleural effusion COMPARISON: 10/15/2024 Impression IMPRESSION: Decreased right pleural effusion with a right chest tube in place. Stable small left pleural effusion and bibasilar atelectasis. Median sternotomy and aortic valvular prosthesis. No pneumothorax. XR Chest Port 1 View Narrative EXAM: XR CHEST PORTABLE 1 VIEW LOCATION: [facility] DATE: 10/19/2024 INDICATION: Chest tube, follow-up effusion. [...] EXAM: XR CHEST PORT 1 VIEW LOCATION: [facility] DATE: 10/22/2024 INDICATION: Pleural effusion, chest tube. [...] EXAM: XR CHEST PORT 1 VIEW LOCATION: [facility] DATE: 10/23/2024 INDICATION: pleural effusion, chest [...] EXAM: CT CHEST W/O CONTRAST LOCATION: [facility] DATE: 10/23/2024 INDICATION: follow up R pleural [...] MEDIASTINUM/AXILLAE: Right hilar adenopathy appears unchanged. A sales representative groceries lymph node measures1.4 cm. No new lymphadenopathy. [...] Narrative EXAM: CT HEAD W/O CONTRAST LOCATION: [facility] DATE: 10/23/2024 INDICATION: Confusion, AMS COMPARISON: [...] be sent through Care Everywhere. * Stroke (Gabonese) * Stroke: Symptoms: General Info (Gabonese) * Mediterranean Diet: General Info (Gabonese) documented in this encounter Medications at Time [...] mcg by mouth daily. Continuous Glucose Sensor ([employer] G7 SENSOR) MISCIndications:Ty pe 1 diabetes mellitus [...] 10/12/24 Omnipod BASAL RATES and times: Continuous (5466-3323: 0.9 units/hour CARB RATIO and times: 8227-8034: 1 unit for 10g of carbohydrates Corection Factor (Sensitivity) and times: 4184-0636: 1 unit lowers BG by 40 mg/dL [...] to have 1 chocolate Glucerna and [address] adjusted. NEW FINDINGS Weight: [...] MS, RD, JEFF Caldwell Message Group: Dietitian [[facility]] Office Pagers: 3rd floor/ICU: [phone] All other floors: [phone] Weekend/holiday: [phone] * Nishant Sands MD - 10/28/2024 8:32 AM CDTFormatting of this note is different from the [facility] Medicine Progress Note - Hospitalist Service [...] NSR. - Remains in NSR - continue EVENT STAFF DOAC Hyponatremia: Resolved. Acute on chronic -initially [...] until clinically improved. He follows in the [facility] system and this can likely be done [...] Session: 30 min Stress: Patient Declined (07/12/2023) [place] [employer] - Occupational Stress Questionnaire Feeling of Stress : Patient declined Disposition Plan Medically Ready for Discharge: Anticipated Tomorrow if no further issues with recurrent A-fib with RVR Nishant Sands MD, Hospitalist Service [facility] Securely message with Official Limited Virtual (more info) Text page via [facility] Paging/Directory Interval History I assumed medicine service [...] Echocardiogram Complete Result Value LVEF 65-70% Narrative [id number]^JARETT^ANEL^[facility] Echocardiography Laboratory [address] [place] [id number] Name: ALENA RAE : 1960 Study Date: 10/27/2024 12:32 PM Age: 63 yrs Gender: Male Patient Location: [facility] Reason For Study: CVA Ordering Physician: [...] EXAM: CTA HEAD NECK W CONTRAST LOCATION: [facility] DATE: 10/27/2024 INDICATION: Right frontal infarct; [...] artery stenoses. Mild multifocal likely atherosclerotic bilateral academic associate stenoses; patent P1-proximal P3 segment branches of the academic associate without high-grade stenosis. No aneurysm or high-flow [...] effusion with compressive atelectasis. A partially imaged fatzv-fxlzqnpc-smalm left pleural effusion without evidence of loculation. [...] rhythm. No significant malignantarrhythmias overnight. * Sirisha Wang MD - 10/28/2024 6:28 AM CDT Cross [...] Torres MD - 10/26/2024 9:26 AM CDT [facility] Hospitalist Progress Note Wilber Torres MD 10/26/2024 [...] NSR. - Remains in NSR - continue EVENT STAFF DOAC Hyponatremia: Resolved. Acute on chronic -initially [...] until clinically improved. He follows in the [facility] system and this can likely be done [...] before Sunday YARON Muñoz Care mgt team [phone] OGRAPHIC AIDE * Wilber Torres MD - 10/25/2024 9:48 AM CST [facility] Hospitalist Progress Note Wilber Torres MD 10/25/2024 [...] NSR. - Remains in NSR - continue EVENT STAFF DOAC Hyponatremia: Resolved. Acute on chronic -initially [...] until clinically improved. He follows in the [facility] system and this can likely be done [...] previous visit (from the past 24 hours). OGRAPHIC AIDE * Enma Robledo RN - 10/24/2024 2:37 PM CST Chest tube removed at bedside per Radiologist and Hopsitalist, no longer indicated. Pt handled chest tube removal well. Site covered with petroleum, gauze and tegaderm transparent dressing. Bedside RN aware. Pt sitting upright in chair eating lunch after removal. OGRAPHIC AIDE * Wilber Torres MD - 10/24/2024 1:59 [...] Will discontinue Lovenox and resume Eliquis thisevening OGRAPHIC AIDE OGRAPHIC AIDE OGRAPHIC AIDE OGRAPHIC AIDE * Nima Acosta MD - 10/24/2024 1:51 PM CST [facility] Physicians Pulmonary, Allergy, Critical Care and [...] pleural fluid. - Residual right-sided hydropneumothorax likely sales representative groceries of partially explainable lung secondary to trapped [...] Pulmonary will continue to follow. RHETT [employer] and tree service spray supervisor [facility] Pulmonary, Allergy, Critical Care and Sleep Medicine Pager - [phone] Interval History: - Completed 6 doses of [...] Description Date Value Ref Range Status 07/04/2019 [facility] Final No results found for: CULT Attestation: I personally spent 55 minutes on the date of the encounter doing chart review, history and exam, documentation and further activities per the note. RHETT [employer] and tree service spray supervisor [facility] Pulmonary, Allergy, Critical Care and Sleep Medicine Pager - [phone] OGRAPHIC AIDE * Wilber Torres MD - 10/24/2024 11:02 AM CST [facility] Hospitalist Progress Note Wilber Torres MD 10/24/2024 [...] oral amiodarone for 1 month on 10/16. -EVENT STAFF DOAC on hold since 10/20 (bloody pleural [...] until clinically improved. He follows in the [facility] system and this can likely be done [...] Narrative EXAM: CT HEAD W/O CONTRAST LOCATION: [facility] DATE: 10/23/2024 INDICATION: Confusion, AMS COMPARISON: [...] Narrative EXAM: CT CHEST W/O CONTRAST LOCATION: [facility] DATE: 10/23/2024 INDICATION: follow up R [...] MEDIASTINUM/AXILLAE: Right hilar adenopathy appears unchanged. A sales representative groceries lymph node measures1.4 cm. No new lymphadenopathy. [...] on the previous abdominal MRI from 10/14/2024. OGRAPHIC AIDE OGRAPHIC AIDE * Tova Alberts, [facility] - 10/23/2024 3:01 PM CSTSummary: Discharge Plsanning [...] indicated or clinically appropriate Additional Information: ARU sales representative groceries met with patient today. They are following along for placement and qualifications for their program. Patient and are aboard for rehab. feels she can not care for himuntil he is stronger. SW met with to review ARU and TCU qualifications. also had questions regarding medical records as she thought it would be helpful for [facility] have his records from his previous MRI last year to compare. Informed her that what she was looking is in the medical records under Care Everywhere. Next Steps: SW will continue to assist with discharge. HERMAN Duran [employer] Driving Inpatient Care Coordination Roll Press Operator Fire Crew Specialist [facility] [phone] HERMAN Nicholson OGRAPHIC AIDE * Tiarra Arnold CM - 10/23/2024 11:51 AM CST Rehab Admissions: Met with pt and to discuss referral to [facility] and provided them with informationincluding [...] in such a program. Tiarra Arnold CM Lead Inspector/Detention Worker [facility] 10/24/2024 9:51 AM OGRAPHIC AIDE * Wilber Torres MD - 10/23/2024 9:24 AM CST [facility] Hospitalist Progress Note Wilber Torres MD 10/23/2024 [...] oral amiodarone for 1 month on 10/16. -EVENT STAFF DOAC on hold since 10/20 (bloody pleural [...] until clinically improved. He follows in the [facility] system and this can likely be done [...] EXAM: XR CHEST PORT 1 VIEW LOCATION: [facility] DATE: 10/23/2024 INDICATION: pleural effusion, chest [...] repair is unchanged. No acute bony abnormality. OGRAPHIC AIDE OGRAPHIC AIDE OGRAPHIC AIDE OGRAPHIC AIDE OGRAPHIC AIDE OGRAPHIC AIDE OGRAPHIC AIDE * Nima Acosta MD - 10/22/2024 11:57 AM CST [facility] Physicians Pulmonary, Allergy, Critical Care and [...] Pulmonary will continue to follow. RHETT [employer] and tree service spray supervisor [facility] Pulmonary, Allergy, Critical Care and Sleep Medicine Pager - [phone] Interval History: - Continued on intrapleural tPA/DNase. [...] tablet 200 mg 200 mg Oral BID Crhis Suarez MD 200 mg at 10/22/24 0607 [...] Description Date Value Ref Range Status 07/04/2019 [facility] Final No results found for: CULT Attestation: I personally spent 51 minutes on the date of the encounter doing chart review, history and exam, documentation and further activities per the note. RHETT [employer] and tree service spray supervisor [facility] Pulmonary, Allergy, Critical Care and Sleep Medicine Pager - [phone] OGRAPHIC AIDE * Wilber Torres MD - 10/22/2024 9:27 AM CST [facility] Hospitalist Progress Note Wilber Torres MD 10/22/2024 [...] oral amiodarone for 1 month on 10/16. -EVENT STAFF DOAC on hold since 10/20 (bloody pleural [...] until clinically improved. He follows in the [facility] system and this can likely be done [...] Intake/Output Summary (Last 24 hours) at 10/22/2024 0941 Last data filed at 10/22/2024 0814 Gross [...] previous visit (from the past 24 hours). OGRAPHIC AIDE * Siobhan Valverde RN - 10/21/2024 2:09 [...] document with patient/family: No Handoff Completed: Yes, [facility] PCP: Internal handoff referral completed Additional Information: [...] Unit vs Transitional Care Unit Siobhan Valverde SENIOR LINUX SYSTEMS ADMINISTRATOR CM Inpatient Care Coordination [facility] [phone] OGRAPHIC AIDE * Wilber Torres MD - 10/21/2024 10:54 AM CST [facility] Hospitalist Progress Note Wilber Torres MD 10/21/2024 [...] oral amiodarone for 1 month on 10/16. -EVENT STAFF DOAC on hold since 10/20 (bloody pleural [...] until clinically improved. He follows in the [facility] system and this can likely be done [...] previous visit (from the past 24 hours). OGRAPHIC AIDE * Mona Castellon, RD - 10/21/2024 9:02 [...] CCHO, 2000 mL fluid restriction Supplements: Breakfast: Loring Glucerna Lunch: Gel+ Sanchez Dinner: Loring Glucerna CURRENT INTAKE/TOLERANCE Per nursing flowsheet, 100% [...] regimen. NEW FINDINGS 10/15: pt transferred to [facility]. 10/16: Chest tube placed Pt still struggling [...] Group: Dietitian [[facility]] Office Pagers: 3rd floor/ICU: [phone] All other floors: [phone] Weekend/holiday: [phone] OGRAPHIC AIDE * Nima Acosta MD - 10/20/2024 3:22 PM CST [facility] Physicians Pulmonary, Allergy, Critical Care and [...] - Per his conversation with his outpatient rug dyer helper, patient was to stop apixaban after his most recent prescription. Will stop the apixaban today. - Continue to monitor output through the chest tube and if bloody, would hold further doses. - Will get repeat imaging after 3 days of intrapleural tPA/DNase. - Continue current antibiotics. - Rest of the plan as per the primary team. Pulmonary will continue to follow. RHETT Grady [employer] and tree service spray supervisor [facility] Pulmonary, Allergy, Critical Care and Sleep Medicine Pager - [phone] Interval History: - Minimal drainage through the [...] 1 tablet 1 tablet Oral BID PRN Bernradino Garcia MD 1 tablet at 10/15/24 0914 [...] further activities per the note. 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 Sleeps at least part of the day. Pt and spouse share compliance analyst, pt states he does the dishes and [...] (Routines, Roles, Habits) pt works as an accountant supervisor, this is his busy time of year. 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 At this time pt is looking to [...] all fall risk precautions as documented by senior staff psychologist while hospitalized. OT Total Distance Amb During Session (feet) 0 Total Session Time Timed Code Treatment Minutes 25 Total Session Time (sum of timed and untimed services) 40 OGRAPHIC AIDE * Chris Suarez MD - 10/20/2024 7:[address] [facility] Medicine Progress Note - Hospitalist Service Date [...] Session: 30 min Stress: Patient Declined (07/12/2023) [place] Call of Occupational Health - Occupational Stress Questionnaire Feeling of Stress : Patient declined Disposition Plan Medically Ready for Discharge: Anticipated in 2-4 Days Might need tcu but seems to be progressing a bit with therapies Chris Suarez MD Hospitalist Service [facility] Securely message with Official Limited Virtual (more info) Text page via [employer] Paging/Directory Interval History Chest tube in place, [...] EXAM: XR CHEST PORTABLE 1 VIEW LOCATION: [facility] DATE: 10/19/2024 INDICATION: Chest tube, follow-up effusion. [...] Evaluation Time PT Eval, Low Complexity Minutes (56290) 8 Physical Therapy Goals PT Frequency Daily PT Predicted Duration/Target Date for Goal Attainment 10/26/24 PT Goals Bed Mobility;Transfers;Gait;Stairs PT: Bed Mobility Independent;Supine to/from sit PT: Transfers Supervision/stand-by assist;Sit to/from stand;Assistive device PT: Gait Supervision/stand-by assist;Rolling walker;150 feet PT: Stairs Supervision/stand-by assist;Greater than 10 stairs;Rail on right Interventions Interventions Quick Adds Therapeutic Activity;Therapeutic Procedure Therapeutic Procedure/Exercise Ther. Procedure: strength, endurance, ROM, flexibillity Minutes (92758) 12 Symptoms Noted During/After Treatment fatigue Treatment [...] dynamic activities to improve functional performance Minutes (16737) 20 Symptoms Noted During/After Treatment Fatigue Treatment [...] (sum of timed and untimed services) 40 OGRAPHIC AIDE * Chris Suarez MD - 10/19/2024 7:47 AM CST [facility] Medicine Progress Note - Hospitalist [...] until clinically improved. He follows in the [facility] system and this can likely be done [...] Session: 30 min Stress: Patient Declined (07/12/2023) [place] Call of Occupational Health - Occupational Stress Questionnaire Feeling of Stress : Patient declined Disposition Plan Medically Ready for Discharge: Anticipated in 2-4 Days Might need tcu. Chris Suarez MD Hospitalist Service [facility] Securely message with Official Limited Virtual (more info) Text page via [employer] Paging/Directory Interval History Increasing carb counting insulin [...] = values in this interval not displayed. OGRAPHIC AIDE OGRAPHIC AIDE * Chris Suarez MD - 10/18/2024 8:01 AM CST [facility] Medicine Progress Note - Hospitalist [...] until clinically improved. He follows in the [facility] system and this can likely be done [...] Session: 30 min Stress: Patient Declined (07/12/2023) [place] Call of Occupational Health - Occupational Stress Questionnaire Feeling of Stress : Patient declined Disposition Plan Medically Ready for Discharge: Anticipated in 2-4 Days Might need tcu. Chris Suarez MD Hospitalist Service [facility] Securely message with Official Limited Virtual (more info) Text page via [facility] Paging/Directory Interval History Blood sugar improved, keeping [...] EXAM: XR CHEST PORT 1 VIEW LOCATION: [facility] DATE: 10/17/2024 INDICATION: post right chest tube [...] = values in this interval not displayed. OGRAPHIC AIDE * Chris Suarez MD - 10/17/2024 3:52 PM CST Update: Change from coreg to PO metoprolol tartrate 25 mg TID for better rate control. Plan to consolidate dosing/titrate as needed. Also has prn IV metoprolol available. Chris Suarez MD OGRAPHIC AIDE * Kayla Baca MD - 10/17/2024 2:46 PM CST Images from the original note were not included. [facility] INPATIENT PULMONARY PROGRESS NOTE October 17, 2024 [...] Pulmonary, Allergy, Critical Care and Sleep Medicine [facility] Interval History: Minimal drainage per [...] results found for: No results found for: 60314 No results found for: No results found for: No results found for: No results found for: No results found for: No results found for: No results found for: No results found for: No results found for: No results found for: Previous Chest Imaging Previous Cardiology Imaging @[id number]@ OGRAPHIC AIDE * Chris Suarez MD - 10/17/2024 7:[address] [facility] Medicine Progress Note - Hospitalist Service Date [...] until clinically improved. He follows in the [facility] system and this can likely be done [...] Session: 30 min Stress: Patient Declined (07/12/2023) [place] Call of Occupational Health - Occupational Stress Questionnaire Feeling of Stress : Patient declined Disposition Plan Medically Ready for Discharge: Anticipated in 2-4 Days Chris Suarez MD Hospitalist Service [facility] Securely message with Official Limited Virtual (more info) Text page via [facility] Paging/Directory Interval History Underwent chest tube placement [...] Narrative PROCEDURE: Ultrasound guided right sided 10 Nigerian chest tube placement DATE: 10/16/2024 MEDICATIONS: 1% [...] Lidocaine. Under direct ultrasound guidance, a 5 Nigerian [employer]eh needle was advanced into the pleural space via an intercostal approach. The catheter was advanced off of the needle. A 0.035 guidewire was advanced through the micropuncture sheath and the tract was serially dilated. A 10 Nigerian locking loop chest tube was placed with [...] in stable condition. Impression IMPRESSION: Right-sided 10 Nigerian chest tube placement under ultrasound guidance. Recent [...] = values in this interval not displayed. OGRAPHIC AIDE OGRAPHIC AIDE OGRAPHIC AIDE * Carla Bear RN - 10/16/2024 11:32 AM CST Right 10 [place] islander chest tube placed per Dr. Corral without difficulty, patient tolerated well. No sedation was given, only local lidocaine. See also imaging dictation and post procedure orders. Patient transferred to room via cart in stable condition. Report called to bedside RN. OGRAPHIC AIDE * Chris Suarez MD - 10/16/2024 8:[address] [facility] Medicine Progress Note - Hospitalist Service Date [...] to sinus rhythm 10/15. -Continue monitoring on [facility] -Transition from amiodarone infusion to oral Eliquis [...] until clinically improved. He follows in the [facility] system and this can likely be done [...] Session: 30 min Stress: Patient Declined (07/12/2023) [place] Call of Occupational Health - Occupational Stress Questionnaire Feeling of Stress : Patient declined Disposition Plan Medically Ready for Discharge: Anticipated in 2-4 Days Chris Suarez MD Hospitalist Service [facility] Securely message with Official Limited Virtual (more info) Text page via [place] Paging/Directory Interval History Transferred out of the [...] Pulse: 79 Resp: 25 SpO2: 93 % [id number]: Nasal cannula Oxygen Delivery: 2.5 LPM Weight: [...] Narrative EXAM: CT CHEST W/O CONTRAST LOCATION: [facility] DATE: 10/15/2024 INDICATION: R pleural effusion COMPARISON: Chest x-ray yesterday and chest CT on 10/12/2024 TECHNIQUE: CT chest without IV contrast. Multiplanar reformats were obtained. Dose reduction techniques were used. CONTRAST: None. FINDINGS: LUNGS AND PLEURA: A qowjq-sr-choxrpmb sized partly loculated right pleural effusion predominantly [...] = values in this interval not displayed. OGRAPHIC AIDE * Kayla Baca MD - 10/15/2024 10:15 PM CST I reviewed CT chest which was performed tonight and consult placed to IR for chest tube placement for concern for complex right pleural effusion. Kayla Baca MD Pulmonary, Critical Care and Sleep Medicine [facility] Pager: [phone] OGRAPHIC AIDE * Bernardino Garcia MD - 10/15/2024 2:[address] [facility] Medicine Progress Note - Hospitalist Service Date [...] until clinically improved. He follows in the [employer] system and this can likely be done [...] Session: 30 min Stress: Patient Declined (07/12/2023) [place] Call of Occupational Health - Occupational Stress Questionnaire Feeling of Stress : Patient declined Disposition Plan Medically Ready for Discharge: Anticipated in 2-4 Days Bernardino Garcia MD Hospitalist Service [facility] Securely message with Official Limited Virtual (more info) Text page via [place] Paging/Directory Interval History Feeling a little bit [...] MR LIVER W/O and W CONTRAST LOCATION: [facility] DATE: 10/14/2024 INDICATION: lesions seen on [...] = values in this interval not displayed. OGRAPHIC AIDE OGRAPHIC AIDE * Ortiz Chew MD - 10/14/2024 12:[address] [facility] Medicine Progress Note - Hospitalist Service Date [...] disorder History of Astrocytoma with resection - EVENT STAFF lamotrigine 300 mg bid Hx of A-fib with RVR and aortic valve placement - on EVENT STAFF eliquis, carvedilol and lisinopril - troponin normal on arrival with no anginal equivalents or other concerning history Type 1 DM - insulin pump placed on hold at time of admission - lantus increased to 12u - medium sliding scale insulin and carbohydrate coverage with 1 unit per 10 grams of carbohydrate - can resume insulin pump once stable and eating normally HLP - EVENT STAFF ezetimibe is in the room and updated [...] Session: 30 min Stress: Patient Declined (07/12/2023) [place] Call of Occupational Health - Occupational Stress Questionnaire Feeling of Stress : Patient declined Disposition Plan Medically Ready for Discharge: Anticipated in 2-4 Days The patient's care was discussed with the Bedside Nurse and Patient. Ortiz Chew MD Hospitalist Service [facility] Securely message with Official Limited Virtual (more info) Text page via [facility] Paging/Directory Interval History I assumed care of [...] note. Data PAST 24 HR DATA REVIEWED OGRAPHIC AIDE * Carla Bear RN - 10/14/2024 11:11 AM CST Right thoracentesis completed per Dr. Dent for 100 ml clear yellow fluid, patient tolerated well. Fluid to lab for diagnostics as ordered. Patient transferred to room via cart in stable condition. OGRAPHIC AIDE * Horacio Galan MD - 10/14/2024 2:54 [...] status may need thoracentesis during the day OGRAPHIC AIDE OGRAPHIC AIDE * Arielle Sewell RT - 10/14/2024 1:11 AM CST Pt set up on hospital CPAP. RT Júnior OGRAPHIC AIDE * Horacio Galan MD - 10/14/2024 12:07 AM CST Glucose 349. Reviewed chart. Give additional 6 units aspart. OGRAPHIC AIDE * Tiarra Smalls PA-C - 10/13/2024 3:[address] [facility] Medicine Progress Note - Hospitalist Service Date [...] suggested. Will refer on discharge Seizure disorder -EVENT STAFF lamotrigine 300 mg bid Hx of A-fib with RVR and aortic valve placement - on EVENT STAFF eliquis, carvedilol and lisinopril - Troponin normal [...] improves then consider when appropriate to resume EVENT STAFF insulin pump HLP -EVENT STAFF ezetimibe Diet: Combination Diet Regular Diet Adult; [...] Session: 30 min Stress: Patient Declined (07/12/2023) [place] Call of Occupational Health - Occupational Stress Questionnaire Feeling of Stress : Patient declined Disposition Plan Medically Ready for Discharge: Anticipated in 2-4 Days The patient's care was discussed with the Bedside Nurse and Patient. Tiarra Smalls PA-C Hospitalist [facility] Securely message with Official Limited Virtual (more info) Text page via [facility] Paging/Directory Interval History Patient appears uncomfortable and [...] note. 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 OGRAPHIC AIDE * Chastity Patino MD - 10/12/2024 8:37 PM CST Lantus 5 units and aspart 2 units ordered for hyperglycemia Patient has turned off his insulin pump OGRAPHIC AIDE * Indu Harris RN - 10/12/2024 6:49 PM CST [facility] ED Boarding Nurse Handoff Addendum Report: [...] ED Boarding Nurse name: Indu Harris RN OGRAPHIC AIDE documented in this encounter H&P Notes * Arielle Martel, - 10/12/2024 12:55 PM CSTFormatting of this note is different from the [facility] History and Physical - Hospitalist Service Date [...] is suggested. Will refer on discharge Seizures -EVENT STAFF lamotrigine 300 mg bid Hx of A-fib with RVR and aortic valve placement - on EVENT STAFF eliquis, carvedilol and lisinopril - Troponin normal [...] with pharmacy to assist with management HLP -EVENT STAFF ezetimibe Diet: Combination Diet Regular Diet Adult; [...] 2-4 Days Arielle Martel DO Hospitalist Service [facility] Securely message with Official Limited Virtual (more info) Text page via [place] Paging/Directory Chief Complaint Fall and rib pain [...] Surgeon: Juan Wu MD; Location: HEART CARDIAC RESIDENTIAL CASE MANAGER EYE SURGERY Lasik REPLACE VALVE AORTIC N/A [...] (: 0.9 units/hour CARB RATIO and times: 6203-9084: 1 unit for 10g of carbohydrates Corection Factor (Sensitivity) and times: 8630-5927: 1 unit lowers BG by 40 mg/dL [...] Narrative EXAM: CT HEAD W/O CONTRAST LOCATION: [facility] DATE: 10/12/2024 INDICATION: Fall, on eliquis, eval [...] CHEST PE ABDOMEN PELVIS W CONTRAST LOCATION: [facility] DATE: 10/12/2024 INDICATION: Right inferior chest [...] or metastatic disease. Further workup is suggested. OGRAPHIC AIDE OGRAPHIC AIDE documented in this encounter Consult Notes * Tova Alberts LICSW - 10/28/2024 2:23 PM CDT Care Management Discharge Note Discharge Date: 10/29/2024 Discharge Disposition: ARU tomorrow 12/29/24 Discharge Services: ARU for rehab. Discharge DME: ARU will provide Discharge Transportation: family or friend will provide they will be transport at [phone] on Sun.10/29/24 Private pay costs discussed: private [...] Updated the and patient. will transport between [phone] tomorrow 10/29/24 . Updated the unit and RN. HERMAN Duran SW Truck Driving Inpatient Care Coordination Roll Press Operator Fire Crew Specialist [facility] [phone] HERMAN Nicholson * Anel Long NP - 10/27/2024 10:41 AM CDTAssociated Order(s): NEUROLOGY IP STROKE CONSULT Images from the original note were not included. [facility] Stroke Consult Note Reason for Consult: abnormal [...] in the setting of ICAD - continue EVENT STAFF apixaban 5 mg BID - continue ezetimibe 10 mg daily; consider statin therapy in the setting of ICAD; nursing home LDL goal 40-70 - Telemetry - Pt [...] 7.0 - Nutrition: Mediterranean diet recommended - PT/OT/POWDER HAND, discharging to acute rehab - Stroke Education - Depression Screen - Apnea screening questions - Euthermia, Euglycemia - continue EVENT STAFF lamotrigine 300 mg BID for seizure ppx Patient Follow-up - in the next 1-2 week(s) with PCP - in 6-8 weeks with general neurology or stroke HAYDE ([phone]), ordered - with PCP regarding further work up of liver lesions Thank you for this consult. No further stroke evaluation is recommended, so we will sign off. Please contact us with any additional questions. Anel Long NP Vascular Neurology To page me or covering stroke neurology steam hand, click here: [employer]COM Choose Mixing Machine Operator tab at top, then select NEUROLOGY/ALL SITES [...] 10/12/24 Omnipod BASAL RATES and times: Continuous (9458-4590: 0.9 units/hour CARB RATIO and times: 0298-1542: 1 unit for 10g of carbohydrates Corection Factor (Sensitivity) and times: 2716-3482: 1 unit lowers BG by 40 mg/dL [...] simultaneous stimulation (assessed by nurse) Coordination: normal [id number]-[id number] and [id number] bilaterally without dysmetria Station/Gait: unable to test [...] and Inattention 0-->No abnormality Total 1 (10/27/24 1418) Imaging I personally reviewed all imaging; relevant [...] communication per Kateryna Originating site (patient location) [facility] Distant site (provider location) [facility] I have personally spent a total of [...] provider only visit. Julio Cesar Espinosa MD Furn[employer] Department of Neurology * [facility] Joanna BernardoASHOK TAG PRESS OPERATOR - 10/24/2024 2:38 PM CSTAssociated Order(s): INTERVENTIONAL RADIOLOGY ADULT/PEDS IP CONSULT Images from the original note were not included. IR consult for a R chest tube removal as pulmonary done with treatment. This will be done by Radiology RNs in patient room today. Total time: 15 minutes [facility] Interventional Radiology TAG PRESS OPERATOR ([phone]) (phone [phone]) OGRAPHIC AIDE * Dominic Smith PA-C - 10/24/2024 2:34 [...] Surgeon: Juan Wu MD; Location: HEART CARDIAC RESIDENTIAL CASE MANAGER EYE SURGERY Lasik REPLACE VALVE AORTIC N/A 07/04/2019 Procedure: AORTIC VALVE REPLACEMENT WITH VALVE AORTIC PERIMOUNT MAGNA-EASE BIOPROSTH SIZE: 23MM ON PUMP OXYGENATOR AND CARLOS EDUARDO BY [facility]; Surgeon: Ej Haines MD; Location: OR TONSILLECTOMY [...] mouth daily. 10/12/2024 Morning Continuous Glucose Sensor ([employer] G7 SENSOR) MISC Change every 10 days. [...] 10/12/24 Omnipod BASAL RATES and times: Continuous (7735-8321: 0.9 units/hour CARB RATIO and times: 7390-4068: 1 unit for 10g of carbohydrates Corection Factor (Sensitivity) and times: 9201-3784: 1 unit lowers BG by 40 mg/dL [...] Imaging: As noted above Dominic Smith PA-C OGRAPHIC AIDE * Melvin Urena - 10/20/2024 2:30 PM CSTAssociated Order(s): SPIRITUAL HEALTH SERVICES IP CONSULT SPIRITUAL HEALTH SERVICES - Consult Note RH Med/Surg 3 Referral Source: [facility] consult to assess pt's emotional/spiritual resources and needs per his length of stay. Oriented pt Alena to [facility]. He reported that his moravian sole rounding machine operator from [facility] in [place] has seen him twice during his admission. Alena also named his spouse, daughter, and son as being part of his support network. He shared that his biggest concern is getting his chest tubes out. Alena welcomed prayer. Plan: Informed pt how he can request further conservation science teacher support. This author and other chaplains remain available per pt/family request. Melvin Urena M.Div., [facility] Staff Electric Motor Repairing Supervisor [employer] available 12/03 for emergent requests/referrals, either by paging the on-call conservation science teacher or by entering an CAMILLE/STAT consult in [facility], which will also page the on-call conservation science teacher. OGRAPHIC AIDE * Aristeo Tova Trevizo, [facility] - 10/17/2024 11:37 AM CSTAssociated Order(s): CARE [...] Communication Assessment Patient's communication style: spoken language (Gabonese or Bilingual) Hearing Difficulty or Deaf: no [...] or ex-partner?: No Stress: Patient Declined (07/12/2023) [place] Call of Occupational Health - Occupational Stress Questionnaire Feeling of Stress : Patient declined Social Connections: Socially Integrated (07/12/2023) Social Connection and Isolation Panel [NHANES] Frequency of Communication with Friends and Family: Twice a week Frequency of Social Gatherings with Friends and Family: Once a week Attends Worship Services: More than 4 times per year Active Member of Clubs or Organizations: Yes Attends Club or Organization Meetings: More than 4 times per year Marital Status: Health Literacy: Not on file Functional Status: Prior to admission patient needed assistance: Mental Health Status: Chemical Dependency Status: Values/Beliefs: Spiritual, Cultural Beliefs, Worship Practices, Values that affect care: Discussed ???Partnership [...] Pharmacy confirmed to be [facility]. Next Steps: SW assessed and signing off. Will monitor for discharge needs if any arises. HERMAN Duran Truck Driving Inpatient Care Coordination Roll Press Operator Fire Crew Specialist [facility] [phone] HERMAN Nicholson OGRAPHIC AIDE * Joanna León APRN TAG PRESS OPERATOR - 10/16/2024 8:48 AM CSTAssociated Order(s): INTERVENTIONAL [...] Cedeño Total time: 20 minutes [facility] Interventional Radiology TAG PRESS OPERATOR ([phone]) (phone [phone]) OGRAPHIC AIDE * Kayla Baca MD - 10/15/2024 3:11 [...] Pulmonary, Allergy, Critical Care and Sleep Medicine [facility] HPI/Interval history Alena Rae is a 63 [...] Surgeon: Juan Wu MD; Location: HEART CARDIAC RESIDENTIAL CASE MANAGER EYE SURGERY Lasik REPLACE VALVE AORTIC N/A [...] Rate 146 BPM Atrial Rate 192 BPM NH Interval ms QRS Duration 108 ms QT 318 ms QTc 495 ms P [place] degrees R AXIS 9 degrees T [place] 79 degrees Interpretation ECG Atrial fibrillation with [...] Status --------- ------ CBC with platelets and d...[[id number]] Abnormal Final result Please view results for [...] Narrative EXAM: CT CHEST W/O CONTRAST LOCATION: [facility] DATE: 10/15/2024 INDICATION: R pleural effusion COMPARISON: Chest x-ray yesterday and chest CT on 10/12/2024 TECHNIQUE: CT chest without IV contrast. Multiplanar reformats were obtained. Dose reduction techniques were used. CONTRAST: None. FINDINGS: LUNGS AND PLEURA: A [id number]-io-vnhiqxlf sized partly loculated right pleural effusion predominantly [...] results found for: No results found for: 16422 No results found for: No results found for: No results found for: No results found for: No results found for: No results found for: Previous Chest Imaging No images are attached to the encounter. @IMAGESENCORD@ Previous Cardiology Imaging @[id number]@ OGRAPHIC AIDE * Kathryn Hu RD - 10/15/2024 2:46 [...] Hu MS, RD, LD Clinical Dietitian II Official Limited Virtual Message Group: Dietitian [[place]] Office Pagers: 3rd floor/ICU: [phone] All other floors: [phone] Weekend/holiday: [phone] OGRAPHIC AIDE documented in this encounter ED Notes * Dania Álvarez RN - 10/12/2024 7:[address] [facility] ED Boarding Nurse Handoff Addendum [...] ED Boarding Nurse name: Dania Álvarez RN OGRAPHIC AIDE * Maisha Thorpe RN - 10/12/2024 4:15 PM CST Bed: ED25 Expected date: Expected time: Means of arrival: Comments: ed14 OGRAPHIC AIDE * Nara Argueta RN - 10/12/2024 4:03 PM CST Report given to Boarder nurse Indu. OGRAPHIC AIDE * Aurora Whitlock RN - 10/12/2024 1:[address] [facility] ED Nurse Handoff Report ED Chief complaint: [...] 1. Lift room needed: No. Bariatric: No Health And Safety Inspector Needed: No Isolation: No. Infection: Not Applicable. [...] the note was read: Yes 1:23 PM OGRAPHIC AIDE OGRAPHIC AIDE * Wilber Ndiaye MD - 10/12/2024 10:42 [...] Pressure Ventricular Rate 88 Atrial Rate 88 NH Interval 154 QRS Duration 100 QT 348 QTc 421 P [place] 53 R AXIS 13 T [place] 49 Interpretation ECG Sinus rhythm Normal ECG [...] None Discussion of Management Admitting Hospitalist, Dr. Robles ED Course ED Course as of 10/12/24 [...] to me. Wilber Ndiaye MD 10/13/24 1206 OGRAPHIC AIDE * Zulema Hurst RN - 10/12/2024 10:38 [...] WDL WDL Cognitive/Neuro/Behavioral WDL Cognitive/Neuro/Behavioral WDL WDL OGRAPHIC AIDE documented in this encounter Miscellaneous Notes * Plan of Care - Elli Spear PT - 10/29/2024 2:00 PM CDT Physical Therapy Discharge Summary Reason for therapy discharge: Discharged to acute rehabilitation facility. Progress towards therapy goal(s). See goals on Care Plan in [facility] electronic health record for goal details. [...] Coming in soon * Interim Summary - Tirara Arnold CM - 10/29/2024 9:55 AM CDT [facility] Pre-Admission Screen Referral Source: [place] [address] [facility] 0307- Admit date to referring [...] stable and ready for discharge to an [facility] level of care for intensive therapies not [...] astrocytoma. 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 Currently, he is [...] Provide stroke education. Continue seizure precautions. Continue EVENT STAFF apixaban 5 mg BID Cardiovascular: In setting of afib with RVR, assess cardiovascular response to increased activity demands. Pt is at risk for arrhythmias, cardiovascular events and activity intolerance.Transitioned from amiodarone infusion to oral amiodarone for 1 month on 10/16. Transitioned from carvedilol 12.5 mgtwice daily to Toprol-XL 50 mg twice daily. Continue EVENT STAFF DOAC. 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 SELF-CARE Usual Activity Tolerance: good Equipment Currently Used at Home: none Activity/Exercise/Self-Care Comment: Independent with basic ADLS and mobility at baseline Level of Function: GG Scale (Section GG Functional Ability and Goals; [facility]'s RESENDEZ Version 3.0 Manual effective 05.20.2019): [...] to safety 6 Independent Cognition Impaired Independent POWDER HAND Current Function Goals for Rehab Swallow Not [...] ADL.OT should also screen cognition and involve POWDER HAND if any major deficits are noted. He [...] for 10 days Speech and Language Therapy: POWDER HAND not involved Rehabilitation Nursing Needs: Patient requires [...] effective last night. planning to transport today [phone] to TCU. Goal Outcome Evaluation: Plan of [...] shift note. Outcome: Progressing Flowsheets (Taken 10/27/2024 3053) Outcome Evaluation: ambulated oakes Plan of Care [...] Progressing * Plan of Care - Marilin Julien RN - 10/26/2024 9:47 PM CDT A&Ox4. [...] Documentation Taken 10/25/2024 2302 by Tamera Kim RNyarn dumper Interventions: rest care clustered declines Taken 10/25/20242229 by Tamera Kim RNyarn dumper Interventions: care clustered rest Taken 10/25/20242219 by Tamera Kim RNyarn dumper Interventions: (PRN dilaudid) medication (see MAR) Taken 10/25/20242128 by Tamera Kim RNyarn dumper Interventions: rest Taken 10/25/20242046 by Tamera Kim RNyarn dumper Interventions: (PRN oxy) medication (see MAR) Intervention: [...] shift note. Outcome: Progressing Flowsheets (Taken 10/26/2024 0334) Outcome Evaluation: On 2 L NC, no [...] Flowsheet Documentation Taken 10/25/20242301 by Tamera Kim RNyarn dumper Interventions: rest care clustered declines Taken 10/25/20242229 by Tamera Kim RNyarn dumper Interventions: care clustered rest Taken 10/25/20242219 by Tamera Kim RNyarn dumper Interventions: (PRN dilaudid) medication (see MAR) Taken 10/25/20242128 by Tamera Kim RNyarn dumper Interventions: rest Taken 10/25/20242046 by Tamera Kim RNyarn dumper Interventions: (PRN oxy) medication (see MAR) Goal: [...] Readiness for Transition of Care Outcome: Progressing OGRAPHIC AIDE * Plan of Care - Tamera Kim [...] Flowsheet Documentation Taken 10/24/20242018 by Tamera Kim RNyarn dumper Interventions: (PRN oxy) medication (see MAR) Intervention: [...] Flowsheet Documentation Taken 10/24/20242018 by Tamera Kim RNyarn dumper Interventions: (PRN oxy) medication (see MAR) Goal: Readiness for Transition of Care Outcome: Progressing OGRAPHIC AIDE OGRAPHIC AIDE * Plan of Care - Thomas Noland [...] & Oxycodone for pain prior to removal. OGRAPHIC AIDE * Plan of Care - Keely Del [...] water seal drainage, no output from 11pm-7am OGRAPHIC AIDE * Plan of Care - Marilin Julien RN - 10/23/2024 10:59 PM PHOTOGRAPHIC AIDE A&Ox4, c/o pain, controlled w/ oxycodone and [...] shift note. Outcome: Progressing Flowsheets (Taken 10/23/2024 9396) Outcome Evaluation: CT of chest performed, increase of chest tube output. Plan of Care Reviewed With: patient Overall Patient Progress: no change OGRAPHIC AIDE * Plan of Care - Magno Dawson RN - 10/23/2024 3:51 PM CST B/p [...] Recent Flowsheet Documentation Taken 10/23/2024 1454 by Magno Dawson RN Pain Management Interventions: [...] increased pain with increase output from CT OGRAPHIC AIDE * Provider Notification - Magno Dawson RN - 10/23/2024 3:[address] Acosta paged: pt c/o increased back /chest pain . 1250 serosanguinous fluid out within 8 hours.Does he need to continue with suction . called this RN back and gave TORB to turn off suction and change CT to water seal . OGRAPHIC AIDE * Provider Notification - Magno Dawson RN - 10/23/2024 12:[address] Torres messaged via [employer]: pt b/p 87/55 recheck 91/55. Hr 80. Temp 99.4 oral feels warm. Lethargic/sleepy today. Labs, CT head and , iv bolus given. OGRAPHIC AIDE * Provider Notification - Magno Dawson RN - 10/23/2024 8:[address] Torres messaged via [employer]: pt seems to be in more pain [...] now 93% on 3LNc. CXR results pending. OGRAPHIC AIDE * Plan of Care - Sabiha Mathis [...] Outcome Evaluation: PRN Oxy/Tylenol/Dilaudid given for pain. OGRAPHIC AIDE * Plan of Care - Jazmin Adler [...] Flowsheet Documentation Taken 10/22/20242148 by Jazmin Adler RNyarn dumper Interventions: medication (see MAR) Taken 10/22/2024 195 by Jazmin Adler RNyarn dumper Interventions: medication (see MAR) Taken 10/22/2024 163 by Jazmin Adler RNyarn dumper Interventions: emotional support distraction declines Intervention: Prevent [...] Documentation Taken 10/22/2024 2149 by Jazmin Adler RNyarn dumper Interventions: medication (see MAR) Taken 10/22/2024 195 by Jazmin Adler RNyarn dumper Interventions: medication (see MAR) Taken 10/22/2024 163 by Jazmin Adler RNyarn dumper Interventions: emotional support distraction declines Goal: Readiness for Transition of Care 10/22/20242302 by Jazmin Adlre RN Outcome: Progressing 10/22/20242224 by Jazmin Adler RN Outcome: Progressing OGRAPHIC AIDE * Plan of Care - Magno Dawson [...] ml pink fluid out of chest tube OGRAPHIC AIDE * Plan of Care - Anel Inman [...] Readiness for Transition of Care Outcome: Progressing OGRAPHIC AIDE * Plan of Care - Adriana Sandoval [...] note. Recent Flowsheet Documentation Taken 10/21/20242105 by dAriana Sandoval RN Outcome Evaluation: Had another dose [...] during this shift. Posterior right flank pain. OGRAPHIC AIDE * Plan of Care - Magno Dawson [...] serosang output of chest tube. altapase given OGRAPHIC AIDE * Plan of Care - Anel Inman [...] Flowsheet Documentation Taken 10/21/202427 by Anel Inman, yarn dumper Interventions: medication (see MAR) care clustered pillow [...] Documentation Taken 10/21/2024 0028 by Anel Inman RNyarn dumper Interventions: medication (see MAR) care clustered pillow support provided rest Goal: Readiness for Transition of Care Outcome: Progressing OGRAPHIC AIDE * Plan of Care - Adriana Sandoval [...] Flowsheet Documentation Taken 10/20/20241703 by Adriana Sandoval, chief controller station Review/Management: medications reviewed Goal Outcome Evaluation: Plan of Care Reviewed With: patient, spouse Overall Patient Progress: improvingOverall Patient Progress: improving Outcome Evaluation: Chest tube intact, with minimal out put. OGRAPHIC AIDE * Plan of Care - Meño Fuentes [...] 0.2 mg IV Dilaudid given with relief. OGRAPHIC AIDE * Plan of Care - Ericka Cunningham [...] Prevention/Management: (eliquis) SCDs off (sequential compression devices) OGRAPHIC AIDE * Plan of Care - Magno Dawson [...] improving Outcome Evaluation: o2 weaned to 2LNC OGRAPHIC AIDE * Plan of Care - Keely Del [...] Evaluation: chest tube in place. TELE monitor, OGRAPHIC AIDE * Plan of Care - Torri Frausto [...] note. Outcome: Not Progressing Flowsheets (Taken 10/18/2024 4665) Outcome Evaluation: Pt A&O, chest tube in [...] monitor AF 130, ON 4 L OXYGEN. OGRAPHIC AIDE * Plan of Care - Magno Dawson [...] shift note. Outcome: Progressing Flowsheets (Taken 10/18/2024 1527) Outcome Evaluation: [address] Plan [...] improving Outcome Evaluation: [address] OGRAPHIC AIDE * Plan of Care - Giovanna Lieberman [...] shift note. Outcome: Progressing Flowsheets (Taken 10/18/2024 6058) Outcome Evaluation: Chest tube in place, given [...] Fall Risk Recent Flowsheet Documentation Taken 10/18/2024 1283 by Giovanna Lieberman, RN Safety Promotion/Fall Prevention: [...] Dysrhythmia Goal: Normalized Cardiac Rhythm Outcome: Progressing OGRAPHIC AIDE * Plan of Care - Georgie Shepherd [...] shift note. Outcome: Progressing Flowsheets (Taken 10/17/2024 6284) Outcome Evaluation: CT ouput 65, painful rt [...] Cough And Deep Breathing: done with encouragement OGRAPHIC AIDE * Plan of Care - Magno Dawson [...] Progress: improving Outcome Evaluation: ambulated to chair OGRAPHIC AIDE * Plan of Care - Tova Alberts LICSW - 10/17/2024 11:41 AM CST HERMAN Duran Truck Driving Inpatient Care Coordination Roll Press Operator Fire Crew Specialist [facility] [phone] OGRAPHIC AIDE * Plan of Care - Mone Fragoso [...] Dysrhythmia Goal: Normalized Cardiac Rhythm Outcome: Progressing OGRAPHIC AIDE * Plan of Care - Adriana Sandoval [...] Promote Comfort Recent Flowsheet Documentation Taken 10/16/2024 1553 by Adriana Sandoval, yarn dumper Interventions: rest repositioned Goal: Readiness for Transition [...] stopped. Started on oral amiodarone. Tele NSR. OGRAPHIC AIDE * Plan of Care - Anthony Huang RN - 10/16/2024 2:25 PM CST A&Ox4. Bedrest, Ax2 w lift. 3L NC. BG ac/hs. Carb count, mod/carb diet. Incontinent of stool & urine, external cath. On zosyn. 2 PIVs. On amio drip, plan to switch to oral amio tn. Chest tubeplaced today and hooked up to suction. VS stable. Dressing clean, dry, intact. [place] drainage, 10ml,and diminished lung sounds present. Goal [...] Flowsheet Documentation Taken 10/16/2024 0832 by Anthony Huagn RN Medication Review/Management: medications reviewed Goal: Maintenance of Seizure Control Outcome: Progressing Intervention: Maintain Seizure Symptom Control Recent Flowsheet Documentation Taken 10/16/2024 0832 by Anthony Huang RN Medication Review/Management: medications reviewed Problem: Dysrhythmia Goal: Normalized Cardiac Rhythm Outcome: Progressing Intervention: Monitor and Manage Cardiac Rhythm Effect Recent Flowsheet Documentation Taken 10/16/2024 0832 by Anthony Huang RN VTE Prevention/Management: SCDs on (sequential compression devices) OGRAPHIC AIDE * Plan of Care - Kiesha Guerra [...] Patient Progress: improving Outcome Evaluation: Amiodarone infusing OGRAPHIC AIDE * Plan of Care - Anel Lucas [...] Dysrhythmia Goal: Normalized Cardiac Rhythm Outcome: Progressing OGRAPHIC AIDE * Plan of Care - Clau Cai [...] Events): Brain MRI, Chest CT. Transfer to [facility]. Monitor UOP. Discharge/Transfer Needs: TBD Bedside Shift [...] at 20-30 degrees Taken 10/15/2024 1300 by Calu Cai RN Airway/Ventilation Management: airway patency maintained [...] Bed (HOB) Positioning: HOB at 20-30 degrees OGRAPHIC AIDE * Plan of Care - Natalie Landaverde [...] Documentation Taken 10/15/2024629 by Natalie Landaverde RN VTE Prevention/Management: (eliquis) SCDs off (sequential [...] provide Concerns to be Addressed: discharge planning OGRAPHIC AIDE * Plan of Care - Cari Marie RN - 10/15/2024 6:17 AM CST Goal Outcome Evaluation: Pt. Continues to be tachy 120's-140's. New orders received for Amiodarone drip. Patient transferredto ICU at 0615 hrs to be administered this medication. Report given to MENDEL Estrada. ICU will notify spouse. OGRAPHIC AIDE * Plan of Care - Cari Marie RN - 10/15/2024 2:46 AM CST Goal Outcome Evaluation: Patients' BGs 358. X-cover notified and orders received to give 8 units of Novolog. OGRAPHIC AIDE * Code/Rapid Response - Angelia, Horacio Valiente MD - 10/15/2024 1:39 AM PHOTOGRAPHIC AIDE -REAL ESTATE OPERATIONS MANAGER note- REAL ESTATE OPERATIONS MANAGER was called due to patient with significant [...] not give the initial 150 mg bolus -[facility] status for amiodarone load. Ideally move patient to 3rd floor, but no beds available at this eim OGRAPHIC AIDE OGRAPHIC AIDE OGRAPHIC AIDE OGRAPHIC AIDE * Plan of Care - Cari Marie RN - 10/15/2024 1:29 AM CST Goal Outcome Evaluation: REAL ESTATE OPERATIONS MANAGER activated as patient was running Tachy with ranges between 130-167. He was asymptomatic denyingfeelings of a racing heart, pressure or pain. O2 was steady at 94-95 on 3 L NC. Prompt response andprovider assessed patient at bedside. Orders obtained. OGRAPHIC AIDE OGRAPHIC AIDE OGRAPHIC AIDE * Plan of Care - Alma Machado [...] is negative--MD notified Dr. Wilber Talbot at [phone]. IS. Tele discontinued; NSR. Discharge Disposition: home [...] Goal: Maintenance of Seizure Control Outcome: Progressing OGRAPHIC AIDE OGRAPHIC AIDE * Significant Event - Wilber Talbot APRN CNP - 10/14/2024 5:47 PM PHOTOGRAPHIC AIDE Brief Medicine Note: 10/14/2024 5:49 PM Notified by RN that staph nares swab has returned. MRSA negative. Discontinue Vancomycin. OGRAPHIC AIDE * Pharmacy-Vancomycin Dosing Service - Gisele Mello [facility] - 10/14/2024 12:54 PM CST Pharmacy Vancomycin [...] (ZESTRIL) tablet 30 mg Note to Pharmacy: EVENT STAFF Sig:Take 1 tablet (30 mg) by mouth [...] weekly for subsequent weeks. Gisele Mello RPH OGRAPHIC AIDE * Plan of Care - Juanita Dodd RN - 10/14/2024 5:01 AM CST Care from [phone] Inpatient Progress Note: For complete assessment see [...] Regulation: care clustered Medication Review/Management: medications reviewed OGRAPHIC AIDE * Provider Notification - Juanita Dodd RN - 10/14/2024 2:43 AM PHOTOGRAPHIC AIDE Patient complaining of SOB and new hypoxia O2 Sats 84-85 on 2LPM/NC increased O2 to 4 LPM/NC but still remained 85-87 %. VS 130/ 73 NH 82 RR 19 T 97.7. Patient was supposed to be on CPAP at bedtime but unable to tolerate it. Please review pt. THanks. Per Crow Galan : Switch oxygen to Oxymask at 5LPM Stopped IV fluids Chest xray IV Lasix 20 mg given OGRAPHIC AIDE OGRAPHIC AIDE OGRAPHIC AIDE * Provider Notification - Juanita Dodd RN - 10/14/2024 12:06 AM PHOTOGRAPHIC AIDE Patient's latest blood sugar 349. LILLIANA Walsh advised to let Crow know about midnight blood sugar. Thanks. OGRAPHIC AIDE * Provider Notification - Juanita Dodd RN - 10/13/2024 8:56 PM PHOTOGRAPHIC AIDE Patient informed RN that his blood sugar machine alerted him unable to read, blood sugar checked 377 and was 383 at suppertime had 5 units of NOvolog, can I give the bedtime insulin now. Please advise. Thanks. OGRAPHIC AIDE * Plan of Care - Caterina Stack [...] Medication Review/Management: medications reviewed high-risk medications identified OGRAPHIC AIDE * Plan of Care - Aurora Whitlock [...] Prevent Infection Recent Flowsheet Documentation Taken 10/12/2024 9365 by Aurora Whitlock RN Infection Prevention: hand hygiene promoted rest/sleep promoted Goal: Optimal Comfort and Wellbeing Outcome: Adequate for Care Transition Goal: Readiness for Transition of Care Outcome: Adequate for Care Transition OGRAPHIC AIDE * Provider Notification - Aurora Whitlock RN - 10/13/2024 4:56 AM PHOTOGRAPHIC AIDE Pt having severe pain despite oxy and tylenol given. Provider paged and changed oxy order to every 4 hours PRN. OGRAPHIC AIDE * Pharmacy-Admission Medication History - Pj Pruitt [facility] - 10/12/2024 1:23 PM CST Pharmacist Admission Medication History Admission medication history is complete. The information provided in this note is only as accurateas the sources available at the time of the update. Information Source(s): Patient, Family member, Clinic records, and [facility] Pertinent Information: Patient [...] it can be replaced. Changes made to EVENT STAFF medication list: Added: insulin pump settings Deleted: aspirin, Lunesta Changed: Melatonin 5mg HS PRN --> 10mg HS Ezetimibe daily --> qPM Allergies reviewed with patient and updates made in EHR: no Medication History Completed By: PJ PRUITT RP 10/12/2024 1:23 PM EVENT STAFF Med List Medication Sig Note Last Dose/Taking [...] mouth daily. 10/12/2024 Morning Continuous Glucose Sensor ([employer] G7 SENSOR) MISC Change every 10 days. [...] 10/12/24 Omnipod BASAL RATES and times: Continuous (8235-0597: 0.9 units/hour CARB RATIO and times: 4023-2905: 1 unit for 10g of carbohydrates Corection Factor (Sensitivity) and times: 4766-1941: 1 unit lowers BG by 40 mg/dL [...] 50 mg by mouth daily 10/12/2024 Morning OGRAPHIC AIDE documented in this encounter Plan of Treatment Upcoming Encounters Date Type Department Care Team (Late st Contact Info) Description 12/17/2024 9:30 AM CDT Lab [facility] [address] [place] [phone] 12/23/2024 4:00 PM CDT Office Visit [address] [phone] Cyrus Aleman MD [address] [place] [address] [phone] 01/27/2025 10:00 AM CDT Office Visit [facility] Neurology [address] [phone] Anel Long, POLICY SPECIALIST [address] [place] [address] Coni Dhaliwal, TAG PRESS OPERATOR [address] [place] [phone] 04/14/2025 11:15 AM CDT Office Visit [facility] Heart [facility] [address] [facility] [address] [place] [phone] Inessa Esteves, [address] [place] [phone] 06/05/2025 12:30 PM CDT Office Visit [facility] End[facility]inology [facility] [address] [phone] Stephie Mahoney MD [address] [place] [address] [phone] 11/13/2025 11:00 AM CDT Virtual Visit [facility] Endocrinology [address] [phone] Stephie Mahoney MD [address] [place] [address] [phone] Pending Results Name Type Priority Associated Diagnoses [...] GLUCOSE BY METER Routine 10/26/2024 1:48 AM PHOTOGRAPHIC AIDE GLUCOSE BY METER Routine 10/25/2024 9:30 PM PHOTOGRAPHIC AIDE GLUCOSE BY METER Routine 10/25/2024 6:10 PM PHOTOGRAPHIC AIDE GLUCOSE BY METER Routine 10/25/2024 12:4 1 PM PHOTOGRAPHIC AIDE GLUCOSE BY METER Routine 10/25/2024 8:19 AM PHOTOGRAPHIC AIDE EXTRA TUBE Routine 10/25/2024 7:13 AM PHOTOGRAPHIC AIDE EXTRA PURPLE TOP TUBE Routine 10/25/2024 7:13 AM PHOTOGRAPHIC AIDE PHOSPHORUS Routine 10/25/2024 7:13 AM PHOTOGRAPHIC AIDE MAGNESIUM Routine 10/25/2024 7:13 AM PHOTOGRAPHIC AIDE GLUCOSE BY METER Routine 10/25/2024 1:08 AM PHOTOGRAPHIC AIDE GLUCOSE BY METER Routine 10/24/2024 9:19 PM PHOTOGRAPHIC AIDE GLUCOSE BY METER Routine 10/24/2024 6:23 PM PHOTOGRAPHIC AIDE CRP INFLAMMATION Routine 10/24/2024 1:33 PM PHOTOGRAPHIC AIDE GLUCOSE BY METER Routine 10/24/2024 1:09 PM PHOTOGRAPHIC AIDE GLUCOSE BY METER Routine 10/24/2024 9:41 AM PHOTOGRAPHIC AIDE GLUCOSE BY METER Routine 10/24/2024 8:15 AM PHOTOGRAPHIC AIDE EXTRA PURPLE TOP EDTA (LAB USE ONLY) Routine 10/24/2024 6:25 AM PHOTOGRAPHIC AIDE PHOSPHORUS Routine 10/24/2024 6:25 AM PHOTOGRAPHIC AIDE MAGNESIUM Routine 10/24/2024 6:25 AM PHOTOGRAPHIC AIDE GLUCOSE BY METER Routine 10/24/2024 6:10 AM PHOTOGRAPHIC AIDE GLUCOSE BY METER Routine 10/24/2024 2:11 AM PHOTOGRAPHIC AIDE GLUCOSE BY METER Routine 10/23/2024 9:[address] CHEST W/O CONTRAST Routine 10/23/2024 8:29 PM PHOTOGRAPHIC AIDE GLUCOSE BY METER Routine 10/23/2024 5:[address] HEAD W/O CONTRAST STAT 10/23/2024 1:38 PM PHOTOGRAPHIC AIDE BLOOD GAS VENOUS STAT 10/23/2024 1:04 PM PHOTOGRAPHIC AIDE BASIC METABOLIC PANEL STAT 10/23/2024 1:04 PM PHOTOGRAPHIC AIDE CBC WITH PLATELETS STAT 10/23/2024 1: 04 PM PHOTOGRAPHIC AIDE GLUCOSE BY METER Routine 10/23/2024 12:2 6 PM PHOTOGRAPHIC AIDE XR CHEST PORT 1 VIEW STAT 10/23/2024 8:59 AM PHOTOGRAPHIC AIDE GLUCOSE BY METER Routine 10/23/2024 8:44 AM PHOTOGRAPHIC AIDE EXTRA PURPLE TOP EDTA (LAB USE ONLY) Routine 10/23/2024 6:41 AM PHOTOGRAPHIC AIDE PHOSPHORUS Routine 10/23/2024 6:41 AM PHOTOGRAPHIC AIDE MAGNESIUM Routine 10/23/2024 6:41 AM PHOTOGRAPHIC AIDE GLUCOSE BY METER Routine 10/23/2024 2:08 AM PHOTOGRAPHIC AIDE GLUCOSE BY METER Routine 10/22/2024 9:32 PM PHOTOGRAPHIC AIDE GLUCOSE BY METER Routine 10/22/2024 4:45 PM PHOTOGRAPHIC AIDE PROCALCITONIN Routine 10/22/2024 12:14 PM PHOTOGRAPHIC AIDE CRP INFLAMMATION Routine 10/22/2024 12:1 4 PM PHOTOGRAPHIC AIDE GLUCOSE BY METER Routine 10/22/2024 12:0 0 PM PHOTOGRAPHIC AIDE XR CHEST PORT 1 VIEW Routine 10/22/2024 9:27 AM PHOTOGRAPHIC AIDE GLUCOSE BY METER Routine 10/22/2024 8:07 AM PHOTOGRAPHIC AIDE PHOSPHORUS Routine 10/22/2024 7:03 AM PHOTOGRAPHIC AIDE MAGNESIUM Routine 10/22/2024 7:03 AM PHOTOGRAPHIC AIDE BASIC METABOLIC PANEL Routine 10/22/2024 7:03 AM PHOTOGRAPHIC AIDE CBC WITH PLATELETS Routine 10/22/2024 7: 03 AM PHOTOGRAPHIC AIDE GLUCOSE BY METER Routine 10/22/2024 2:35 AM PHOTOGRAPHIC AIDE GLUCOSE BY METER Routine 10/21/2024 9:58 PM PHOTOGRAPHIC AIDE GLUCOSE BY METER Routine 10/21/2024 5:26 PM PHOTOGRAPHIC AIDE GLUCOSE BY METER Routine 10/21/2024 1:24 PM PHOTOGRAPHIC AIDE GLUCOSE BY METER Routine 10/21/2024 9:06 AM PHOTOGRAPHIC AIDE PHOSPHORUS Routine 10/21/2024 6:05 AM PHOTOGRAPHIC AIDE MAGNESIUM Routine 10/21/2024 6:05 AM PHOTOGRAPHIC AIDE GLUCOSE BY METER Routine 10/21/2024 3:40 AM PHOTOGRAPHIC AIDE GLUCOSE BY METER Routine 10/21/2024 1:55 AM PHOTOGRAPHIC AIDE GLUCOSE BY METER Routine 10/20/2024 9:14 PM PHOTOGRAPHIC AIDE GLUCOSE BY METER Routine 10/20/2024 5:26 PM PHOTOGRAPHIC AIDE EXTRA TUBE Routine 10/20/2024 7:15 AM PHOTOGRAPHIC AIDE EXTRA PURPLE TOP TUBE Routine 10/20/2024 7:15 AM PHOTOGRAPHIC AIDE PHOSPHORUS Routine 10/20/2024 7:15 AM PHOTOGRAPHIC AIDE MAGNESIUM Routine 10/20/2024 7:15 AM PHOTOGRAPHIC AIDE GLUCOSE BY METER Routine 10/20/2024 6:00 AM PHOTOGRAPHIC AIDE GLUCOSE BY METER Routine 10/20/2024 5:11 AM PHOTOGRAPHIC AIDE GLUCOSE BY METER Routine 10/20/2024 2:03 AM PHOTOGRAPHIC AIDE GLUCOSE BY METER Routine 10/20/2024 12:3 0 AM PHOTOGRAPHIC AIDE GLUCOSE BY METER Routine 10/20/2024 12:0 6 AM PHOTOGRAPHIC AIDE GLUCOSE BY METER Routine 10/19/2024 9:06 PM PHOTOGRAPHIC AIDE GLUCOSE BY METER Routine 10/19/2024 5:55 PM PHOTOGRAPHIC AIDE GLUCOSE BY METER Routine 10/19/2024 11:4 4 AM PHOTOGRAPHIC AIDE GLUCOSE BY METER Routine 10/19/2024 8:17 AM PHOTOGRAPHIC AIDE XR CHEST PORT 1 VIEW Routine 10/19/2024 8:16 AM PHOTOGRAPHIC AIDE EXTRA PURPLE TOP EDTA (LAB USE ONLY) Routine 10/19/2024 6:34 AM PHOTOGRAPHIC AIDE PHOSPHORUS Routine 10/19/2024 6:34 AM PHOTOGRAPHIC AIDE MAGNESIUM Routine 10/19/2024 6:34 AM PHOTOGRAPHIC AIDE CREATININE Routine 10/19/2024 6:34 AM PHOTOGRAPHIC AIDE GLUCOSE BY METER Routine 10/19/2024 2:17 AM PHOTOGRAPHIC AIDE GLUCOSE BY METER Routine 10/18/2024 9:31 PM PHOTOGRAPHIC AIDE GLUCOSE BY METER Routine 10/18/2024 4:40 PM PHOTOGRAPHIC AIDE GLUCOSE BY METER Routine 10/18/2024 12:5 7 PM PHOTOGRAPHIC AIDE GLUCOSE BY METER Routine 10/18/2024 8:27 AM PHOTOGRAPHIC AIDE EXTRA PURPLE TOP EDTA (LAB USE ONLY) Routine 10/18/2024 6:33 AM PHOTOGRAPHIC AIDE PHOSPHORUS Routine 10/18/2024 6:33 AM PHOTOGRAPHIC AIDE MAGNESIUM Routine 10/18/2024 6:33 AM PHOTOGRAPHIC AIDE BASIC METABOLIC PANEL Routine 10/18/2024 6:33 AM PHOTOGRAPHIC AIDE GLUCOSE BY METER Routine 10/18/2024 2:15 AM PHOTOGRAPHIC AIDE GLUCOSE BY METER Routine 10/17/2024 9:08 PM PHOTOGRAPHIC AIDE GLUCOSE BY METER Routine 10/17/2024 5:27 PM PHOTOGRAPHIC AIDE XR CHEST PORT 1 VIEW STAT 10/17/2024 3:37 PM PHOTOGRAPHIC AIDE GLUCOSE BY METER Routine 10/17/2024 12:4 3 PM PHOTOGRAPHIC AIDE GLUCOSE BY METER Routine 10/17/2024 8:25 AM PHOTOGRAPHIC AIDE EXTRA PURPLE TOP EDTA (LAB USE ONLY) Routine 10/17/2024 6:53 AM PHOTOGRAPHIC AIDE PHOSPHORUS Routine 10/17/2024 6:53 AM PHOTOGRAPHIC AIDE MAGNESIUM Routine 10/17/2024 6:53 AM PHOTOGRAPHIC AIDE CREATININE Routine 10/17/2024 6:53 AM PHOTOGRAPHIC AIDE GLUCOSE BY METER Routine 10/17/2024 2:21 AM PHOTOGRAPHIC AIDE GLUCOSE BY METER Routine 10/16/2024 9:42 PM PHOTOGRAPHIC AIDE GLUCOSE BY METER Routine 10/16/2024 5:37 PM PHOTOGRAPHIC AIDE GLUCOSE BY METER Routine 10/16/2024 12:0 5 PM PHOTOGRAPHIC AIDE US CHEST TUBE INSERT Routine 10/16/2024 11:46 AM PHOTOGRAPHIC AIDE GLUCOSE BY METER Routine 10/16/2024 8:14 AM PHOTOGRAPHIC AIDE PHOSPHORUS Routine 10/16/2024 7:44 AM PHOTOGRAPHIC AIDE MAGNESIUM Routine 10/16/2024 7:44 AM PHOTOGRAPHIC AIDE CREATININE Routine 10/16/2024 7:44 AM PHOTOGRAPHIC AIDE GLUCOSE BY METER Routine 10/16/2024 1:18 AM PHOTOGRAPHIC AIDE GLUCOSE BY METER Routine 10/15/2024 9:21 PM PHOTOGRAPHIC AIDE GLUCOSE BY METER Routine 10/15/2024 6:[address] CHEST W/O CONTRAST Routine 10/15/2024 3:37 PM PHOTOGRAPHIC AIDE MR BRAIN W/O & W CONTRAST Routine 10/15/2024 3:25 PM PHOTOGRAPHIC AIDE GLUCOSE BY METER Routine 10/15/2024 11:5 1 AM PHOTOGRAPHIC AIDE GLUCOSE BY METER Routine 10/15/2024 8:02 AM PHOTOGRAPHIC AIDE GLUCOSE BY METER Routine 10/15/2024 6:40 AM PHOTOGRAPHIC AIDE CBC WITH PLATELETS AND DIFFERENTIAL Routine 10/15/2024 5:45 AM PHOTOGRAPHIC AIDE CBC WITH PLATELETS & DIFFERENTIAL Routine 10/15/2024 5:45 AM PHOTOGRAPHIC AIDE PHOSPHORUS Routine 10/15/2024 5:45 AM PHOTOGRAPHIC AIDE MAGNESIUM Routine 10/15/2024 5:45 AM PHOTOGRAPHIC AIDE BASIC METABOLIC PANEL Routine 10/15/2024 5:45 AM PHOTOGRAPHIC AIDE LACTIC ACID WHOLE BLOOD WITH 1X REPEAT IN 2 HR WHEN >2 STAT 10/15/2024 2:30 AM PHOTOGRAPHIC AIDE GLUCOSE BY METER Routine 10/15/2024 2:17 AM PHOTOGRAPHIC AIDE EKG 12-LEAD, TRACING ONLY STAT 10/15/2024 1:33 AM PHOTOGRAPHIC AIDE GLUCOSE BY METER Routine 10/14/2024 10:0 5 PM PHOTOGRAPHIC AIDE GLUCOSE BY METER Routine 10/14/2024 6:11 PM PHOTOGRAPHIC AIDE MR LIVER W/O & W CONTRAST Routine 10/14/2024 4:17 PM PHOTOGRAPHIC AIDE MRSA MSSA PCR, NASAL SWAB Routine 10/14/2024 1:30 PM PHOTOGRAPHIC AIDE GLUCOSE BY METER Routine 10/14/2024 11:3 8 AM PHOTOGRAPHIC AIDE US THORACENTESIS Routine 10/14/2024 11:1 3 AM PHOTOGRAPHIC AIDE DIFERENTIAL BODY FLUID Routine 11:08 AM PHOTOGRAPHIC AIDE CELL COUNT BODY FLUID Routine 10/14/2024 11:08 AM PHOTOGRAPHIC AIDE NON-GYNECOLOGIC CYTOLOGY Routine 10/14/2024 11:08 AM PHOTOGRAPHIC AIDE AEROBIC BACTERIAL CULTURE ROUTINE Routine 10/14/2024 11:08 AM PHOTOGRAPHIC AIDE PROTEIN FLUID Routine 10/14/2024 11:08 AM PHOTOGRAPHIC AIDE LACTATE DEHYDROGENASE FLUID Routine 10/14/2024 11:08 AM PHOTOGRAPHIC AIDE GLUCOSE FLUID Routine 10/14/2024 11:08 AM PHOTOGRAPHIC AIDE CELL COUNT WITH DIFFERENTIAL FLUID Routine 10/14/2024 11:08 AM PHOTOGRAPHIC AIDE LACTATE DEHYDROGENASE Routine 10/14/2024 10:24 AM PHOTOGRAPHIC AIDE PROTEIN TOTAL Routine 10/14/2024 10:24 AM PHOTOGRAPHIC AIDE HEPATIC FUNCTION PANEL Add-On 10:24 AM PHOTOGRAPHIC AIDE GLUCOSE BY METER Routine 10/14/2024 8:16 AM PHOTOGRAPHIC AIDE CBC WITH PLATELETS AND DIFFERENTIAL Routine 10/14/2024 6:06 AM PHOTOGRAPHIC AIDE CBC WITH PLATELETS & DIFFERENTIAL Routine 10/14/2024 6:06 AM PHOTOGRAPHIC AIDE PHOSPHORUS Routine 10/14/2024 6:06 AM PHOTOGRAPHIC AIDE MAGNESIUM Routine 10/14/2024 6:06 AM PHOTOGRAPHIC AIDE BASIC METABOLIC PANEL Routine 10/14/2024 6:06 AM PHOTOGRAPHIC AIDE GLUCOSE BY METER Routine 10/14/2024 5:56 AM PHOTOGRAPHIC AIDE XR CHEST PORT 1 VIEW STAT 10/14/2024 3:39 AM PHOTOGRAPHIC AIDE GLUCOSE BY METER Routine 10/14/2024 2:10 AM PHOTOGRAPHIC AIDE GLUCOSE BY METER Routine 10/14/2024 2:05 AM PHOTOGRAPHIC AIDE GLUCOSE BY METER Routine 10/13/2024 11:5 6 PM PHOTOGRAPHIC AIDE GLUCOSE BY METER Routine 10/13/2024 8:47 PM PHOTOGRAPHIC AIDE SODIUM Timed 10/13/2024 7:55 PM PHOTOGRAPHIC AIDE SODIUM RANDOM URINE Routine 10/13/2024 6 :45 PM PHOTOGRAPHIC AIDE OSMOLALITY, RANDOM URINE Routine 10/13/2024 6:45 PM PHOTOGRAPHIC AIDE GLUCOSE BY METER Routine 10/13/2024 5:44 PM PHOTOGRAPHIC AIDE GLUCOSE BY METER Routine 10/13/2024 11:4 1 AM PHOTOGRAPHIC AIDE GLUCOSE BY METER Routine 10/13/2024 8:40 AM PHOTOGRAPHIC AIDE PHOSPHORUS Routine 10/13/2024 7:01 AM PHOTOGRAPHIC AIDE OSMOLALITY Add-On 10/13/2024 7:01 AM PHOTOGRAPHIC AIDE MAGNESIUM Routine 10/13/2024 7:01 AM PHOTOGRAPHIC AIDE COMPREHENSIVE METABOLIC PANEL Routine 10/13/2024 7:01 AM PHOTOGRAPHIC AIDE CBC WITH PLATELETS Routine 10/13/2024 7: 01 AM PHOTOGRAPHIC AIDE GLUCOSE BY METER Routine 10/13/2024 2:06 AM PHOTOGRAPHIC AIDE GLUCOSE BY METER Routine 10/12/2024 9:34 PM PHOTOGRAPHIC AIDE GLUCOSE BY METER STAT 10/12/2024 8:19 PM PHOTOGRAPHIC AIDE SODIUM STAT 10/12/2024 8:02 PM PHOTOGRAPHIC AIDE LEGIONELLA URINARY ANTIGEN AND STREPTOCOCCUS PNEUMONIAE ANTIGEN STAT 10/12/2024 7:29 PM PHOTOGRAPHIC AIDE GLUCOSE BY METER STAT 10/12/2024 5:08 PM PHOTOGRAPHIC AIDE SODIUM STAT 10/12/2024 3:19 PM PHOTOGRAPHIC AIDE TROPONIN T, HIGH SENSITIVITY STAT 10/12/2024 2:16 PM PHOTOGRAPHIC AIDE ROUTINE UA WITH MICROSCOPIC STAT 10/12/2024 1:[address] CHEST PE ABDOMEN PELVIS W CONTRAST STAT 10/12/2024 12:[address] HEAD W/O CONTRAST STAT 10/12/2024 12:11 PM PHOTOGRAPHIC AIDE BLOOD CULTURE STAT 10/12/2024 11:28 AM PHOTOGRAPHIC AIDE EKG 12-LEAD, TRACING ONLY STAT 10/12/2024 11:02 AM PHOTOGRAPHIC AIDE ISTAT CREATININE POCT STAT 10/12/2024 11:00 AM PHOTOGRAPHIC AIDE ISTAT GASES LACTATE VENOUS POCT STAT 10/12/2024 10:59 AM PHOTOGRAPHIC AIDE EXTRA TUBE STAT 10/12/2024 10:56 AM PHOTOGRAPHIC AIDE EXTRA GREEN TOP (LITHIUM HEPARIN) TUBE STAT 10/12/2024 10:56 AM PHOTOGRAPHIC AIDE EXTRA RED TOP TUBE STAT 10/12/2024 10 :56 AM PHOTOGRAPHIC AIDE EXTRA BLUE TOP TUBE STAT 10/12/2024 1 0:56 AM PHOTOGRAPHIC AIDE CBC WITH PLATELETS AND DIFFERENTIAL STAT 10/12/2024 10:55 AM PHOTOGRAPHIC AIDE TROPONIN T, HIGH SENSITIVITY STAT 10/12/2024 10:55 AM PHOTOGRAPHIC AIDE CBC WITH PLATELETS & DIFFERENTIAL STAT 10/12/2024 10:55 AM PHOTOGRAPHIC AIDE COMPREHENSIVE METABOLIC PANEL STAT 10/12/2024 10:55 AM PHOTOGRAPHIC AIDE BLOOD CULTURE STAT 10/12/2024 10:55 AM PHOTOGRAPHIC AIDE INFLUENZA A/B, RSV AND SARS-COV2 PCR STAT 10/12/2024 10:39 AM PHOTOGRAPHIC AIDE EKG CARDIAC - HIM SCAN 5 12:00 AM PHOTOGRAPHIC AIDE EKG CARDIAC - HIM SCAN 12:00 AM PHOTOGRAPHIC AIDE documented in this encounter Results * (ABNORMAL) Glucose by meter (10/29/2024 1:27 PM CDT) GLUCOSE BY METER POCT 105(H) 70 - 99 mg/dL 10/29/2024 1:33 PM CDT LABORATORY POC Blood, Capillary BLOOD SPECIMEN / Unknown 10/29/2024 1:27 PM CDT 10/29/2024 1:33 PM CDT Arielle Martel DO LAB - BEAKER POCT Final Re sult LABORATORY [facility] [address] Lab (1st floor, no room number) [place] [address] * (ABNORMAL) Glucose by meter (10/29/2024 8:32 AM CDT) GLUCOSE BY METER POCT 109(H) 70 - 99 mg/dL 10/29/2024 8:39 AM CDT LABORATORY POC Blood, Capillary BLOOD SPECIMEN / Unknown 10/29/2024 8:32 AM CDT 10/29/2024 8:39 AM CDT Arielle Martel DO LAB - BEAKER POCT Final Re sult LABORATORY [facility] Lab [address] Lab (1st floor, no room number) [place] [phone] [place] [address] * Extra Purple Top Tube (10/29/2024 7:30 AM CDT) Hold Specimen JIC 10/29/2024 11:46 AM CDT RH LABORATORY Blood STRUCTURE OF RIGHT UPPER LIMB / Unknown Venipuncture / Unknown 10/29/2024 7:30 AM CDT 10/29/2024 10:44 AM CDT us Arielle Martel DO LAB - BLOOD ORDERABLES Fin al Result LABORATORY [facility] Lab [address] Lab (1st floor, no room number) [address] * Magnesium (10/29/2024 7:30 AM CDT) Magnesium 2.0 1.7 - 2.3 mg/dL 10/29/2024 8:01 AM CDT RH LABORATORY Blood STRUCTURE OF RIGHT UPPER LIMB / Unknown Venipuncture / Unknown 10/29/2024 7:30 AM CDT 10/29/2024 7:34 AM CDT us Al Ian Sands MD LAB - BLOOD ORDERABLES Fi nal Result [facility] Lab [address] Lab (1st floor, no room number) [place] [phone] * Phosphorus (10/29/2024 7:30 AM CDT) Phosphorus 3.9 2.5 - 4.5 mg/dL 10/29/2024 8:01 AM CDT RH LABORATORY Blood STRUCTURE OF RIGHT UPPER LIMB / Unknown Venipuncture / Unknown 10/29/2024 7:30 AM CDT 10/29/2024 7:34 AM CDT us Al Ian Sands MD LAB - BLOOD ORDERABLES Fi nal Result Performing Organization Address [facility]/ZIP Co de Phone Number LABORATORY [facility] Lab [address] Lab (1st floor, no room number) [place] [phone] [place] [address] * Glucose by meter (10/29/2024 5:25 AM CDT) GLUCOSE BY METER POCT 95 70 - 99 mg/dL 10/29/2024 5:32 AM CDT RH LABORATORY POC Blood, Capillary BLOOD SPECIMEN / Unknown 10/29/2024 5:25 AM CDT 10/29/2024 5:32 AM CDT Arielle Martel DO LAB - BEAKER POCT Final Re sult Performing Organization Address [facility]/ZIP Co de Phone Number LABORATORY [facility] Lab [address] Lab (1st floor, no room number) [place] [phone] * Glucose by meter (10/29/2024 1:51 AM CDT) GLUCOSE BY METER POCT 97 70 - 99 mg/dL 10/29/2024 1:58 AM CDT LABORATORY POC Blood, Capillary BLOOD SPECIMEN / Unknown 10/29/2024 1:51 AM CDT 10/29/2024 1:58 AM CDT Arielle Martel DO LAB - BEAKER POCT Final Re sult LABORATORY [facility] [address] Lab (1st floor, no room number) [place] [phone], [facility] * (ABNORMAL) Glucose by meter (10/28/2024 10:00 PM CDT) GLUCOSE BY METER POCT 147(H) 70 - 99 mg/dL 10/28/2024 10:07 PM CDT LABORATORY POC Blood, Capillary BLOOD SPECIMEN / Unknown 10/28/2024 10:00 PM CDT 10/28/2024 10:07 PM CDT Arielle Martel DO LAB - BEAKER POCT Final Re sult Performing Organization Address City/[facility]/ZIP Co de Phone Number LABORATORY [facility] Lab [address] Lab (1st floor, no room number) [place] [address], [facility] * (ABNORMAL) Glucose by meter (10/28/2024 5:18 PM CDT) GLUCOSE BY METER POCT 347(H) 70 - 99 mg/dL 10/28/2024 5:24 PM CDT LABORATORY POC Blood, Capillary BLOOD SPECIMEN / Unknown 10/28/2024 5:18 PM CDT 10/28/2024 5:24 PM CDT Arielle Delonte LAB - BEAKER POCT Final Re sult Performing Organization Address [facility]/ZIP Co de Phone Number LABORATORY [facility] [address] Lab (1st floor, no room number) [place] [address], [facility] * (ABNORMAL) Glucose by meter (10/28/2024 1:27 PM CDT) GLUCOSE BY METER POCT 217(H) 70 - 99 mg/dL 10/28/2024 1:33 PM CDT LABORATORY POC Blood, Capillary BLOOD SPECIMEN / Unknown 10/28/2024 1:27 PM CDT 10/28/2024 1:33 PM CDT Arielle Martel DO LAB - BEAKER POCT Final Re sult LABORATORY [facility] [address] Lab (1st floor, no room number) [place] [address], [facility] * Glucose by meter (10/28/2024 8:26 AM CDT) GLUCOSE BY METER POCT 98 70 - 99 mg/dL 10/28/2024 8:33 AM CDT LABORATORY POC Blood, Capillary BLOOD SPECIMEN / Unknown 10/28/2024 8:26 AM CDT 10/28/2024 8:33 AM CDT us Arielle Martel DO LAB - BEAKER POCT Final Re sult LABORATORY POC [facility] Lab [address] Lab (1st floor, no room number) [place] [address] * Potassium (10/28/2024 6:18 AM CDT) Potassium 4.5 3.4 - 5.3 mmol/L 10/28/2024 8:56 AM CDT LABORATORY Blood BLOOD SPECIMEN / Unknown Venipuncture / Unknown 10/28/2024 6:18 AM CDT 10/28/2024 6:22 AM CDT us Al Ian Sands MD LAB - BLOOD ORDERABLES Fi nal Result [facility] Lab [address] Lab (1st floor, no room number) [place] [address] * Extra Purple Top EDTA (LAB USE ONLY) (10/28/2024 6:18 AM CDT) Hold Specimen JIC 10/28/2024 7:31 AM CDT LABORATORY Blood BLOOD SPECIMEN / Unknown Venipuncture / Unknown 10/28/2024 6:18 AM CDT 10/28/2024 6:22 AM CDT us Arielle Martel DO LAB - BLOOD ORDERABLES Fin al Result [facility] Lab [address] Lab (1st floor, no room number) [address] * Magnesium (10/28/2024 6:18 AM CDT) Magnesium 1.9 1.7 - 2.3 mg/dL 10/28/2024 6:45 AM CDT RH LABORATORY Blood BLOOD SPECIMEN / Unknown Venipuncture / Unknown 10/28/2024 6:18 AM CDT 10/28/2024 6:22 AM CDT Wilber Torres MD LAB - BLOOD ORDERABLES Fi nal Result [facility] Lab [address] Lab (1st floor, no room number) [address] * Phosphorus (10/28/2024 6:18 AM CDT) Phosphorus 3.8 2.5 - 4.5 mg/dL 10/28/2024 6:45 AM CDT LABORATORY Blood BLOOD SPECIMEN / Unknown Venipuncture / Unknown 10/28/2024 6:18 AM CDT 10/28/2024 6:22 AM CDT Wilber Torres MD LAB - BLOOD ORDERABLES Fi nal Result Performing Organization Address City/[facility]/ZIP Co de Phone Number [facility] Lab [address] Lab (1st floor, no room number) [address] * (ABNORMAL) Glucose by meter (10/28/2024 2:05 AM CDT) GLUCOSE BY METER POCT 131(H) 70 - 99 mg/dL 10/28/2024 2:12 AM CDT LABORATORY POC Blood, Capillary BLOOD SPECIMEN / Unknown 10/28/2024 2:05 AM CDT 10/28/2024 2:12 AM CDT Arielle NG - BEAKER POCT Final Re sult LABORATORY [facility] [address] Lab (1st floor, no room number) [place] [phone] * (ABNORMAL) Glucose by meter (10/27/2024 9:59 PM CDT) GLUCOSE BY METER POCT 199(H) 70 - 99 mg/dL 10/27/2024 10:07 PM CDT RH LABORATORY POC Blood, Capillary BLOOD SPECIMEN / Unknown 10/27/2024 9:59 PM CDT 10/27/2024 10:07 PM CDT Arielle Martel DO LAB - BEAKER POCT Final Re sult LABORATORY [facility] [address] Lab (1st floor, no room number) [place] [phone] * (ABNORMAL) Glucose by meter (10/27/2024 7:07 PM CDT) GLUCOSE BY METER POCT 188(H) 70 - 99 mg/dL 10/27/2024 7:14 PM CDT LABORATORY POC Blood, Capillary BLOOD SPECIMEN / Unknown 10/27/2024 7:07 PM CDT 10/27/2024 7:14 PM CDT us Arielle Martel DO LAB - BEAKER POCT Final Re sult LABORATORY [facility] [address] Lab (1st floor, no room number) [place] [phone] * (ABNORMAL) Glucose by meter (10/27/2024 4:53 PM CDT) GLUCOSE BY METER POCT 191(H) 70 - 99 mg/dL 10/27/2024 5:00 PM CDT RH LABORATORY POC Blood, Capillary BLOOD SPECIMEN / Unknown 10/27/2024 4:53 PM CDT 10/27/2024 5:00 PM CDT Arielle Martel Elixr LAB - BEAKER POCT Final Re sult LABORATORY [facility] Lab [address] Lab (1st floor, no room number) [place] [address] * (ABNORMAL) Glucose by meter (10/27/2024 2:50 PM CDT) [facility] GLUCOSE BY METER POCT 227(H) 70 - 99 mg/dL 10/27/2024 2:57 PM CDT LABORATORY POC Blood, Capillary BLOOD SPECIMEN / Unknown 10/27/2024 2:50 PM CDT 10/27/2024 2:57 PM CDT Arielle Soaresabhijeet LAB - BEAKER POCT Final Re sult Performing Organization Address [facility]/ZIP Co de Phone Number LABORATORY [facility] Lab [address] Lab (1st floor, no room number) [place] [address] * CTA Head Neck with [...] EXAM: CTA HEAD NECK W CONTRAST LOCATION: [facility] DATE: 10/27/2024 INDICATION: Right frontal infarct; [...] artery stenoses. Mild multifocal likely atherosclerotic bilateral academic associate stenoses; patent P1-proximal P3 segment branches of the academic associate without high-grade stenosis. No aneurysm or high-flow [...] effusion with compressive atelectasis. A partially imaged [id number] left pleural effusion without evidence of loculation. Procedure Note Sergio Purvis MD - 10/27/2024 EXAM: CTA HEAD NECK W CONTRAST LOCATION: [facility] DATE: 10/27/2024 INDICATION: Right frontal infarct; [...] basilar artery stenoses. 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 Diffuse interlobular pulmonary septal thickening, greater on the left where thereare patchy groundglass airspace opacities, nonspecific although can becompatible with pulmonary edema in the appropriate clinical setting;pneumonia may contribute to a similar appearance and should be excluded clinically. A partially imaged loculatedright pleural effusion with compressive atelectasis. A partially [id number] left pleural effusion without evidence ofloculation. IMPRESSION: [...] * ECHO COMPLETE (10/27/2024 1:04 PM CDT) [facility] LVEF 65-70% CARDIOLOGY RESULTS Anatomical Region Laterality Modality Echocardiography 10/27/2024 12:3 2 PM CDT Narrative 10/27/2024 2:55 PM CDT [id number]^JARETT^ANEL^[facility] Echocardiography Laboratory [address] [place] [address] Name: ALENA RAE : 1960 Study Date: 10/27/2024 12:32 PM Age: 63 yrs Gender: Male Patient Location: [facility] Reason For Study: CVA Ordering Physician: [...] V2 VTI: 79.2 cm JAKE(I,D): 1.1 cm2 JAEK(V,D): 0.88 cm2 Ao acc time: 0.07 sec [...] Procedure Note Horacio Hernandez MD - 10/27/2024 [id number]^JARETT^ANEL^[facility] Echocardiography Laboratory [address] [place] [address] Name: ALENA RAE : 1960 Study Date: 10/27/2024 12:32 PM Age: 63 yrs Gender: Male Patient Location: [facility] Reason For Study: CVA Ordering Physician: [...] on 10/27/2024 02:55 PM us Anel Long POLICY SPECIALIST CV ECHO ORDERABLES Edited Resu lt - Final * (ABNORMAL) Glucose by meter (10/27/2024 11:16 AM CDT) GLUCOSE BY METER POCT 228(H) 70 - 99 mg/dL 10/27/2024 11:22 AM CDT LABORATORY POC Blood, Capillary BLOOD SPECIMEN / Unknown 10/27/2024 11:16 AM CDT 10/27/2024 11:22 AM CDT us Arielle NG - BEAKER POCT Final Re sult LABORATORY [facility] Lab [address] [facility] Lab (1st floor, no room number) [place] [address], [facility] * Glucose by meter (10/27/2024 9:07 AM CDT) GLUCOSE BY METER POCT 89 70 - 99 mg/dL 10/27/2024 9:14 AM CDT RH LABORATORY POC Blood, Capillary BLOOD SPECIMEN / Unknown 10/27/2024 9:07 AM CDT 10/27/2024 9:14 AM CDT us Arielle Martel DO LAB - BEAKER POCT Final Re sult RH LABORATORY POC [facility] Acute Care Lab [address] Lab (1st floor, no room number) [place] [address], [facility] * LDL cholesterol direct (10/27/2024 8:02 AM [...] 10/27/2024 8:20 AM CDT us Anel Long POLICY SPECIALIST LAB - BLOOD ORDERABLES Final R esult [facility] LABORATORY [facility] [place] [facility] [address] [facility], [address] [place] [address], [facility] * Magnesium (10/27/2024 8:02 AM CDT) Magnesium 2.0 1.7 - 2.3 mg/dL 10/27/2024 8:40 AM CDT RH LABORATORY Blood STRUCTURE OF RIGHT UPPER LIMB / Unknown Venipuncture / Unknown 10/27/2024 8:02 AM CDT 10/27/2024 8:20 AM CDT Wilber Torres MD LAB - BLOOD ORDERABLES Fi nal Result [facility] Lab [address] Lab (1st floor, no room number) [place] [address], [facility] * Phosphorus (10/27/2024 8:02 AM CDT) Phosphorus 4.0 2.5 - 4.5 mg/dL 10/27/2024 8:40 AM CDT LABORATORY Blood STRUCTURE OF RIGHT UPPER LIMB / Unknown Venipuncture / Unknown 10/27/2024 8:02 AM CDT 10/27/2024 8:20 AM CDT Wilber Torres MD LAB - BLOOD ORDERABLES Fi nal Result Performing Organization Address City/[facility]/ZIP Co de Phone Number [facility] Lab [address] Lab (1st floor, no room number) [place] [address], [facility] * (ABNORMAL) Glucose by meter (10/27/2024 1:18 AM CDT) GLUCOSE BY METER POCT 165(H) 70 - 99 mg/dL 10/27/2024 1:25 AM CDT LABORATORY POC Blood, Capillary BLOOD SPECIMEN / Unknown 10/27/2024 1:18 AM CDT 10/27/2024 1:25 AM CDT Arielle Martel DO LAB - BEAKER POCT Final Re sult [facility] Lab [address] Lab (1st floor, no room number) [place] [address], [facility] * (ABNORMAL) Glucose by meter (10/26/2024 9:02 PM CDT) GLUCOSE BY METER POCT 239(H) 70 - 99 mg/dL 10/26/2024 9:08 PM CDT LABORATORY POC Blood, Capillary BLOOD SPECIMEN / Unknown 10/26/2024 9:02 PM CDT 10/26/2024 9:08 PM CDT Arielle Martel DO LAB - BEAKER POCT Final Re sult LABORATORY [facility] Lab [address] Lab (1st floor, no room number) [place] [phone] * (ABNORMAL) Glucose by meter (10/26/2024 5:07 PM CDT) GLUCOSE BY METER POCT 242(H) 70 - 99 mg/dL 10/26/2024 5:13 PM CDT LABORATORY POC Blood, Capillary BLOOD SPECIMEN / Unknown 10/26/2024 5:07 PM CDT 10/26/2024 5:13 PM CDT Arielleemile Martel DO LAB - BEAKER POCT Final Re sult Performing Organization Address [facility]/ZIP Co de Phone Number LABORATORY [facility] [address] Lab (1st floor, no room number) [place] [phone], [facility] [place] * (ABNORMAL) Glucose by meter (10/26/2024 12:31 PM CDT) GLUCOSE BY METER POCT 219(H) 70 - 99 mg/dL 10/26/2024 12:41 PM CDT LABORATORY POC Blood, Capillary BLOOD SPECIMEN / Unknown 10/26/2024 12:31 PM CDT 10/26/2024 12:41 PM CDT Arielle Delonte REYNOSO LAB - BEAKER POCT Final Re sult LABORATORY [facility] [address] Lab (1st floor, no room number) [place] [phone] * (ABNORMAL) Glucose by meter (10/26/2024 8:54 AM CDT) GLUCOSE BY METER POCT 197(H) 70 - 99 mg/dL 10/26/2024 9:02 AM CDT [facility] LABORATORY POC Comment:Dr/RN Notified Blood, Capillary BLOOD SPECIMEN / Unknown 10/26/2024 8:54 AM CDT 10/26/2024 9:02 AM CDT us Arielle Martel DO LAB - BEAKER POCT Final Re sult Performing Organization Address City/[facility]/ZIP Co de Phone Number LABORATORY [facility] [address] [facility] Lab (1st floor, no room number) [place] [phone] * (ABNORMAL) Hemoglobin A1c (10/26/2024 7:13 AM CDT) [facility] Estimated Average Glucose 169(H) <117 mg/dL 10/27/2024 12:10 PM CDT LABORATORY Hemoglobin A1C 7.5(H) <5.7 % 10/27/2024 12:10 PM CDT LABORATORY Comment: Normal <5.7% Prediabetes 5.7-6.4% Diabetes 6.5% or higher Note: Adopted from ADA consensus guidelines. Blood STRUCTURE OF RIGHT UPPER LIMB / Unknown Venipuncture / Unknown 10/26/2024 7:13 AM CDT 10/26/2024 8:45 AM CDT Anel Long POLICY SPECIALIST LAB - BLOOD ORDERABLES Final R esult LABORATORY [facility] [address] [facility] Lab (1st floor, no room number) [place] [phone], [facility] [place] * Extra Purple Top Tube (10/26/2024 7:13 AM CDT) Hold Specimen JIC 10/26/2024 9:46 AM CDT [facility] LABORATORY Blood STRUCTURE OF RIGHT UPPER LIMB / Unknown Venipuncture / Unknown 10/26/2024 7:13 AM CDT 10/26/2024 8:45 AM CDT Arielle Martel DO LAB - BLOOD ORDERABLES Fin al Result [facility] [address] [address] Lab (1st floor, no room number) [place] [phone] [place] [address] * Magnesium (10/26/2024 7:13 AM CDT) Magnesium 1.8 1.7 - 2.3 mg/dL 10/26/2024 7:37 AM CDT LABORATORY Blood STRUCTURE OF RIGHT UPPER LIMB / Unknown Venipuncture / Unknown 10/26/2024 7:13 AM CDT 10/26/2024 7:16 AM CDT Wilber Torres MD LAB - BLOOD ORDERABLES Fi nal Result [facility] Lab [address] Lab (1st floor, no room number) [place] [phone] [place] [address] * Phosphorus (10/26/2024 7:13 AM CDT) Phosphorus 3.0 2.5 - 4.5 mg/dL 10/26/2024 7:37 AM CDT LABORATORY Blood STRUCTURE OF RIGHT UPPER LIMB / Unknown Venipuncture / Unknown 10/26/2024 7:13 AM CDT 10/26/2024 7:16 AM CDT Wilber Torres MD LAB - BLOOD ORDERABLES Fi nal Result [facility] [address] Lab (1st floor, no room number) [place] [phone], [facility] [place] * (ABNORMAL) Glucose by meter (10/26/2024 1:48 AM PHOTOGRAPHIC AIDE) GLUCOSE BY METER POCT 167(H) 70 - 99 mg/dL 10/26/2024 1:55 AM PHOTOGRAPHIC AIDE RH LABORATORY POC Blood, Capillary BLOOD SPECIMEN / Unknown 10/26/2024 1:48 AM PHOTOGRAPHIC AIDE 10/26/2024 1:55 AM PHOTOGRAPHIC AIDE Arielle Martel DO LAB - BEAKER POCT Final Re sult LABORATORY [facility] Lab [address] Lab (1st floor, no room number) [address] [place] [address] * (ABNORMAL) Glucose by meter (10/25/2024 9:30 PM PHOTOGRAPHIC AIDE) GLUCOSE BY METER POCT 164(H) 70 - 99 mg/dL 10/25/2024 9:37 PM PHOTOGRAPHIC AIDE LABORATORY POC Blood, Capillary BLOOD SPECIMEN / Unknown 10/25/2024 9:30 PM PHOTOGRAPHIC AIDE 10/25/2024 9:37 PM PHOTOGRAPHIC AIDE Arielle Martel DO LAB - BEAKER POCT Final Re sult Performing Organization Address [facility]/ZIP Co de Phone Number [facility] Lab [address] Lab (1st floor, no room number) [place] [phone] [place] [address] * (ABNORMAL) Glucose by meter (10/25/2024 6:10 PM PHOTOGRAPHIC AIDE) GLUCOSE BY METER POCT 216(H) 70 - 99 mg/dL 10/25/2024 6:17 PM PHOTOGRAPHIC AIDE RH LABORATORY POC Blood, Capillary BLOOD SPECIMEN / Unknown 10/25/2024 6:10 PM PHOTOGRAPHIC AIDE 10/25/2024 6:17 PM PHOTOGRAPHIC AIDE Arielle Martel DO LAB - BEAKER POCT Final Re sult LABORATORY [facility] Lab [address] Lab (1st floor, no room number) [place] [address] * (ABNORMAL) Glucose by meter (10/25/2024 12:41 PM PHOTOGRAPHIC AIDE) GLUCOSE BY METER POCT 116(H) 70 - 99 mg/dL 10/25/2024 12:48 PM PHOTOGRAPHIC AIDE LABORATORY POC Comment:/MENDEL Notified Blood, Capillary BLOOD SPECIMEN / Unknown 10/25/2024 12:41 PM PHOTOGRAPHIC AIDE 10/25/2024 12:48 PM PHOTOGRAPHIC AIDE us Arielle Martel DO LAB - BEAKER POCT Final Re sult LABORATORY [facility] [address] Lab (1st floor, no room number) [place] [address] * Glucose by meter (10/25/2024 8:19 AM PHOTOGRAPHIC AIDE) GLUCOSE BY METER POCT 93 70 - 99 mg/dL 10/25/2024 8:26 AM PHOTOGRAPHIC AIDE LABORATORY POC Comment:/MENDEL Notified Blood, Capillary BLOOD SPECIMEN / Unknown 10/25/2024 8:19 AM PHOTOGRAPHIC AIDE 10/25/2024 8:26 AM PHOTOGRAPHIC AIDE us Arielle Martel DO LAB - BEAKER POCT Final Re sult LABORATORY [facility] Lab [address] Lab (1st floor, no room number) [place] [address], [facility] [place] * Extra Purple Top Tube (10/25/2024 7:13 AM PHOTOGRAPHIC AIDE) Hold Specimen JIC 10/25/2024 9:46 AM PHOTOGRAPHIC AIDE LABORATORY Blood STRUCTURE OF RIGHT UPPER LIMB / Unknown Venipuncture / Unknown 10/25/2024 7:13 AM PHOTOGRAPHIC AIDE 10/25/2024 8:44 AM PHOTOGRAPHIC AIDE Arielle Martel DO LAB - BLOOD ORDERABLES Fin al Result [facility] Lab [address] Lab (1st floor, no room number) [address] * Phosphorus (10/25/2024 7:13 AM PHOTOGRAPHIC AIDE) Phosphorus 3.2 2.5 - 4.5 mg/dL 10/25/2024 7:45 AM PHOTOGRAPHIC AIDE LABORATORY Blood STRUCTURE OF RIGHT UPPER LIMB / Unknown Venipuncture / Unknown 10/25/2024 7:13 AM PHOTOGRAPHIC AIDE 10/25/2024 7:24 AM PHOTOGRAPHIC AIDE Wilber Torres MD LAB - BLOOD ORDERABLES Fi nal Result Performing Organization Address [facility]/ZIP Co de Phone Number [facility] Lab [address] Lab (1st floor, no room number) [address] * Magnesium (10/25/2024 7:13 AM PHOTOGRAPHIC AIDE) Magnesium 2.0 1.7 - 2.3 mg/dL 10/25/2024 7:45 AM PHOTOGRAPHIC AIDE LABORATORY Blood STRUCTURE OF RIGHT UPPER LIMB / Unknown Venipuncture / Unknown 10/25/2024 7:13 AM PHOTOGRAPHIC AIDE 10/25/2024 7:24 AM PHOTOGRAPHIC AIDE Wilber Torres MD LAB - BLOOD ORDERABLES Fi nal Result [facility] Lab [address] Lab (1st floor, no room number) [address] * (ABNORMAL) Glucose by meter (10/25/2024 1:08 AM PHOTOGRAPHIC AIDE) GLUCOSE BY METER POCT 175(H) 70 - 99 mg/dL 10/25/2024 1:15 AM PHOTOGRAPHIC AIDE LABORATORY POC Blood, Capillary BLOOD SPECIMEN / Unknown 10/25/2024 1:08 AM PHOTOGRAPHIC AIDE 10/25/2024 1:15 AM PHOTOGRAPHIC AIDE Arielle Martel LAB - BEAKER POCT Final Re sult Performing Organization Address City/[facility]/ZIP Co de Phone Number LABORATORY [facility] [address] Lab (1st floor, no room number) [place] [address] * (ABNORMAL) Glucose by meter (10/24/2024 9:19 PM PHOTOGRAPHIC AIDE) GLUCOSE BY METER POCT 235(H) 70 - 99 mg/dL 10/24/2024 9:26 PM PHOTOGRAPHIC AIDE LABORATORY POC Blood, Capillary BLOOD SPECIMEN / Unknown 10/24/2024 9:19 PM PHOTOGRAPHIC AIDE 10/24/2024 9:26 PM PHOTOGRAPHIC AIDE Arielle Martel DO LAB - BEAKER POCT Final Re sult Performing Organization Address [facility]/ZIP Co de Phone Number LABORATORY [facility] Lab [address] Lab (1st floor, no room number) [place] [address], [facility] [place] * (ABNORMAL) Glucose by meter (10/24/2024 6:23 PM PHOTOGRAPHIC AIDE) GLUCOSE BY METER POCT 233(H) 70 - 99 mg/dL 10/24/2024 6:29 PM PHOTOGRAPHIC AIDE LABORATORY POC Blood, Capillary BLOOD SPECIMEN / Unknown 10/24/2024 6:23 PM PHOTOGRAPHIC AIDE 10/24/2024 6:29 PM PHOTOGRAPHIC AIDE Arielle Martel LAB - BEAKER POCT Final Re sult LABORATORY [facility] Lab [address] Lab (1st floor, no room number) [place] [phone], [facility] [place] * (ABNORMAL) CRP inflammation (10/24/2024 1:33 PM PHOTOGRAPHIC AIDE) CRP Inflammation 337.11(H) <5.00 mg/L 10/24/2024 2:09 PM PHOTOGRAPHIC AIDE LABORATORY Blood STRUCTURE OF RIGHT UPPER LIMB / Unknown Venipuncture / Unknown 10/24/2024 1:33 PM PHOTOGRAPHIC AIDE 10/24/2024 1:45 PM PHOTOGRAPHIC AIDE Nima Acosta MD LAB - BLOOD ORDERABLES Final Re sult [facility] Lab [address] Lab (1st floor, no room number) [place] [phone], [facility] [place] * (ABNORMAL) Glucose by meter (10/24/2024 1:09 PM PHOTOGRAPHIC AIDE) GLUCOSE BY METER POCT 187(H) 70 - 99 mg/dL 10/24/2024 1:15 PM PHOTOGRAPHIC AIDE LABORATORY POC Blood, Capillary BLOOD SPECIMEN / Unknown 10/24/2024 1:09 PM PHOTOGRAPHIC AIDE 10/24/2024 1:15 PM PHOTOGRAPHIC AIDE Arielle Martel DO LAB - BEAKER POCT Final Re sult Performing Organization Address [facility]/ZIP Co de Phone Number [facility] [address] Lab (1st floor, no room number) [place] [phone], [facility] [place] * (ABNORMAL) Glucose by meter (10/24/2024 9:41 AM PHOTOGRAPHIC AIDE) GLUCOSE BY METER POCT 241(H) 70 - 99 mg/dL 10/24/2024 9:47 AM PHOTOGRAPHIC AIDE LABORATORY POC Blood, Capillary BLOOD SPECIMEN / Unknown 10/24/2024 9:41 AM PHOTOGRAPHIC AIDE 10/24/2024 9:47 AM PHOTOGRAPHIC AIDE Arielle Martel DO LAB - BEAKER POCT Final Re sult LABORATORY [facility] Lab [address] Lab (1st floor, no room number) [place] [phone] [place] [address] * (ABNORMAL) Glucose by meter (10/24/2024 8:15 AM PHOTOGRAPHIC AIDE) GLUCOSE BY METER POCT 205(H) 70 - 99 mg/dL 10/24/2024 8:23 AM PHOTOGRAPHIC AIDE LABORATORY POC Blood, Capillary BLOOD SPECIMEN / Unknown 10/24/2024 8:15 AM PHOTOGRAPHIC AIDE 10/24/2024 8:23 AM PHOTOGRAPHIC AIDE Arielle Martel DO LAB - BEAKER POCT Final Re sult LABORATORY [facility] Lab [address] [facility] Lab (1st floor, no room number) [place] [phone] [place] [address] * Extra Purple Top EDTA (LAB USE ONLY) (10/24/2024 6:25 AM PHOTOGRAPHIC AIDE) Hold Specimen JIC 10/24/2024 8:05 AM PHOTOGRAPHIC AIDE LABORATORY Blood BLOOD SPECIMEN / Unknown Venipuncture / Unknown 10/24/2024 6:25 AM PHOTOGRAPHIC AIDE 10/24/2024 6:49 AM PHOTOGRAPHIC AIDE us Arielle Martel DO LAB - BLOOD ORDERABLES Fin al Result [facility] Lab [address] [facility] Lab (1st floor, no room number) [place] [phone] * Magnesium (10/24/2024 6:25 AM PHOTOGRAPHIC AIDE) Magnesium 2.2 1.7 - 2.3 mg/dL 10/24/2024 7:11 AM PHOTOGRAPHIC AIDE LABORATORY Blood BLOOD SPECIMEN / Unknown Venipuncture / Unknown 10/24/2024 6:25 AM PHOTOGRAPHIC AIDE 10/24/2024 6:50 AM PHOTOGRAPHIC AIDE Arielle Martel DO LAB - BLOOD ORDERABLES Fin al Result Performing Organization Address [facility]/ZIP Co de Phone Number LABORATORY [facility] Lab [address] Lab (1st floor, no room number) [address] * Phosphorus (10/24/2024 6:25 AM PHOTOGRAPHIC AIDE) Phosphorus 3.7 2.5 - 4.5 mg/dL 10/24/2024 7:11 AM PHOTOGRAPHIC AIDE LABORATORY Blood BLOOD SPECIMEN / Unknown Venipuncture / Unknown 10/24/2024 6:25 AM PHOTOGRAPHIC AIDE 10/24/2024 6:50 AM PHOTOGRAPHIC AIDE Arielle Martel DO LAB - BLOOD ORDERABLES Fin al Result Performing Organization Address [facility]/ZIP Co de Phone Number [facility] Lab [address] Lab (1st floor, no room number) [address] * Glucose by meter (10/24/2024 6:10 AM PHOTOGRAPHIC AIDE) GLUCOSE BY METER POCT 76 70 - 99 mg/dL 10/24/2024 6:17 AM PHOTOGRAPHIC AIDE LABORATORY POC Blood, Capillary BLOOD SPECIMEN / Unknown 10/24/2024 6:10 AM PHOTOGRAPHIC AIDE 10/24/2024 6:17 AM PHOTOGRAPHIC AIDE us Arielle Martel DO LAB - BEAKER POCT Final Re sult Performing Organization Address [facility]/ZIP Co de Phone Number LABORATORY [facility] Lab [address] Lab (1st floor, no room number) [address] * (ABNORMAL) Glucose by meter (10/24/2024 2:11 AM PHOTOGRAPHIC AIDE) GLUCOSE BY METER POCT 207(H) 70 - 99 mg/dL 10/24/2024 2:18 AM PHOTOGRAPHIC AIDE LABORATORY POC Blood, Capillary BLOOD SPECIMEN / Unknown 10/24/2024 2:11 AM PHOTOGRAPHIC AIDE 10/24/2024 2:18 AM PHOTOGRAPHIC AIDE Arielle Martel DO LAB - BEAKER POCT Final Re sult LABORATORY [facility] Lab [address] Lab (1st floor, no room number) [place] [address], [facility] [place] * (ABNORMAL) Glucose by meter (10/23/2024 9:28 PM PHOTOGRAPHIC AIDE) [facility] GLUCOSE BY METER POCT 229(H) 70 - 99 mg/dL 10/23/2024 9:35 PM PHOTOGRAPHIC AIDE LABORATORY POC Blood, Capillary BLOOD SPECIMEN / Unknown 10/23/2024 9:28 PM PHOTOGRAPHIC AIDE 10/23/2024 9:35 PM PHOTOGRAPHIC AIDE Arielle Martel DO LAB - BEAKER POCT Final Re sult LABORATORY [facility] Lab [address] Lab (1st floor, no room number) [place] [address], [facility] [place] * CT Chest w/o Contrast (10/23/2024 8:29 PM PHOTOGRAPHIC AIDE) Anatomical Region Laterality Modality Chest, SUBRAD CT BODY, UMP CT CHEST, RAD CT Computed Tomography 10/23/2024 8:29 PM PHOTOGRAPHIC AIDE Impressions 10/23/2024 9:52 PM PHOTOGRAPHIC AIDE IMPRESSION: 1. Decreased right pleural effusion with [...] MRI from 10/14/2024. Narrative 10/23/2024 9:52 PM PHOTOGRAPHIC AIDE EXAM: CT CHEST W/O CONTRAST LOCATION: [facility] DATE: 10/23/2024 INDICATION: follow up R [...] MEDIASTINUM/AXILLAE: Right hilar adenopathy appears unchanged. 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 No new [...] 10/23/2024 EXAM: CT CHEST W/O CONTRAST LOCATION: [facility] DATE: 10/23/2024 INDICATION: follow up R [...] (ABNORMAL) Glucose by meter (10/23/2024 5:14 PM PHOTOGRAPHIC AIDE) Pathologist [facility] GLUCOSE BY METER POCT 236(H) 70 - 99 mg/dL 10/23/2024 5:21 PM PHOTOGRAPHIC AIDE LABORATORY POC Blood, Capillary BLOOD SPECIMEN / Unknown 10/23/2024 5:14 PM PHOTOGRAPHIC AIDE 10/23/2024 5:21 PM PHOTOGRAPHIC AIDE Arielle VALDEZ POCT Final Re sult LABORATORY [facility] Lab [address] Lab (1st floor, no room number) [place] [address], [facility] [place] * CT Head w/o Contrast (10/23/2024 1:38 PM PHOTOGRAPHIC AIDE) Anatomical Region Laterality Modality Head, SUBRAD CT NEURO, SUBRA D CT NEURO, UMP CT NEURO, RAD CT Computed Tomography 10/23/2024 1:38 PM PHOTOGRAPHIC AIDE Impressions 10/23/2024 1:44 PM PHOTOGRAPHIC AIDE IMPRESSION: 1. No acute intracranial abnormality. Narrative 10/23/2024 1:44 PM PHOTOGRAPHIC AIDE EXAM: CT HEAD W/O CONTRAST LOCATION: [facility] DATE: 10/23/2024 INDICATION: Confusion, AMS COMPARISON: [...] 10/23/2024 EXAM: CT HEAD W/O CONTRAST LOCATION: [facility] DATE: 10/23/2024 INDICATION: Confusion, AMS COMPARISON: [...] (ABNORMAL) Blood gas venous (10/23/2024 1:04 PM PHOTOGRAPHIC AIDE) pH Venous 7.48(H) 7.32 - 7.43 10/23/2024 1:14 PM PHOTOGRAPHIC AIDE RH LABORATORY pCO2 Venous 46 40 - 50 mm Hg 10/23/2024 1:14 PM PHOTOGRAPHIC AIDE RH LABORATORY pO2 Venous 79(H) 25 - 47 mm Hg 10/23/2024 1:14 PM PHOTOGRAPHIC AIDE RH LABORATORY Bicarbonate Venous 34(H) 21 - 28 mmol/L 10/23/2024 1:14 PM PHOTOGRAPHIC AIDE RH LABORATORY Base Excess/Deficit Venous 9.1(H) -3.0 - 3.0 mmol/L 10/23/2024 1:14 PM PHOTOGRAPHIC AIDE RH LABORATORY FIO2 3 YARIEL 10/23/2024 1:14 PM PHOTOGRAPHIC AIDE RH LABORATORY Oxyhemoglobin Venous 96(H) 70 - 75 % 10/23/2024 1:14 PM PHOTOGRAPHIC AIDE RH LABORATORY O2 Sat, Venous 97.5(H) 70.0 - 75.0 % 10/23/2024 1:14 PM PHOTOGRAPHIC AIDE RH LABORATORY Blood, venous STRUCTURE OF LEFT UPPER LIMB / Unknown Venipuncture / Unknown 10/23/2024 1:04 PM PHOTOGRAPHIC AIDE 10/23/2024 1:09 PM PHOTOGRAPHIC AIDE Narrative RH LABORATORY - 10/23/2024 1:14 PM PHOTOGRAPHIC AIDE In healthy individuals, oxyhemoglobin (O2Hb) and oxygen saturation (SO2) are approximately equal. In the presence of dyshemoglobins, oxyhemoglobin can be considerably lower than oxygen saturation. us Wilber Torres MD LAB - BLOOD ORDERABLES Fi nal Result LABORATORY [facility] Lab [address] [facility] Lab (1st floor, no room number) [place] [address], [facility] * (ABNORMAL) Basic metabolic panel (10/23/2024 1:04 PM PHOTOGRAPHIC AIDE) Sodium 129(L) 135 - 145 mmol/L 10/23/2024 1:41 PM PHOTOGRAPHIC AIDE LABORATORY Potassium 4.6 3.4 - 5.3 mmol/L 10/23/2024 1:41 PM PHOTOGRAPHIC AIDE RH LABORATORY Chloride 94(L) 98 - 107 mmol/L 10/23/2024 1:41 PM PHOTOGRAPHIC AIDE LABORATORY Carbon Dioxide (CO2) 29 22 - 29 mmol/L 10/23/2024 1:41 PM PHOTOGRAPHIC AIDE LABORATORY Anion Gap 6(L) 7 - 15 mmol/L 10/23/2024 1:41 PM PHOTOGRAPHIC AIDE LABORATORY Urea Nitrogen 19.4 8.0 - 23.0 mg/dL 10/23/2024 1:41 PM PHOTOGRAPHIC AIDE LABORATORY Creatinine 0.75 0.67 - 1.17 mg/dL 10/23/2024 1:41 PM PHOTOGRAPHIC AIDE RH LABORATORY GFR Estimate >90 >60 mL/min/1.7 3m2 10/23/2024 1:41 PM PHOTOGRAPHIC AIDE LABORATORY Comment:eGFR calculated us2020 CKD-EPI equation. Calcium 7.9(L) 8.8 - 10.4 mg/dL 10/23/2024 1:41 PM PHOTOGRAPHIC AIDE LABORATORY Glucose 150(H) 70 - 99 mg/dL 10/23/2024 1:41 PM [facility] LABORATORY Blood STRUCTURE OF RIGHT HAND / Unknown Venipuncture / Unknown 10/23/2024 1:04 PM PHOTOGRAPHIC AIDE 10/23/2024 1:09 PM PHOTOGRAPHIC AIDE Wilber Torres MD LAB - BLOOD ORDERABLES Fi nal Result LABORATORY [facility] Lab [address] [facility] Lab (1st floor, no room number) [place] [address] * (ABNORMAL) CBC with platelets (10/23/2024 1:04 PM PHOTOGRAPHIC AIDE) WBC Count 10.8 4.0 - 11.0 10e3/uL 10/23/2024 1:14 PM PHOTOGRAPHIC AIDE LABORATORY RBC Count 4.14(L) 4.40 - 5.90 10e6/uL 10/23/2024 1:14 PM PHOTOGRAPHIC AIDE LABORATORY Hemoglobin 12.6(L) 13.3 - 17.7 g/dL 10/23/2024 1:14 PM PHOTOGRAPHIC AIDE LABORATORY Hematocrit 36.8(L) 40.0 - 53.0 % 10/23/2024 1:14 PM PHOTOGRAPHIC AIDE LABORATORY MCV 89 78 - 100 fL 10/23/2024 1:14 PM PHOTOGRAPHIC AIDE LABORATORY MCH 30.4 26.5 - 33.0 pg 10/23/2024 1:14 PM PHOTOGRAPHIC AIDE LABORATORY MCHC 34.2 31.5 - 36.5 g/dL 10/23/2024 1:14 PM PHOTOGRAPHIC AIDE LABORATORY RDW 12.3 10.0 - 15.0 % 10/23/2024 1:14 PM PHOTOGRAPHIC AIDE LABORATORY Platelet Count 306 150 - 450 10e3/uL 10/23/2024 1:14 PM PHOTOGRAPHIC AIDE LABORATORY Blood STRUCTURE OF RIGHT HAND / Unknown Venipuncture / Unknown 10/23/2024 1:04 PM PHOTOGRAPHIC AIDE 10/23/2024 1:09 PM PHOTOGRAPHIC AIDE us Wilber Torres MD LAB - BLOOD ORDERABLES Fi nal Result LABORATORY [facility] Lab [address] Lab (1st floor, no room number) [place] [phone] * (ABNORMAL) Glucose by meter (10/23/2024 12:26 PM PHOTOGRAPHIC AIDE) [facility] GLUCOSE BY METER POCT 156(H) 70 - 99 mg/dL 10/23/2024 12:33 PM PHOTOGRAPHIC AIDE LABORATORY POC Blood, Capillary BLOOD SPECIMEN / Unknown 10/23/2024 12:26 PM PHOTOGRAPHIC AIDE 10/23/2024 12:33 PM PHOTOGRAPHIC AIDE Arielle Martel DO LAB - BEAKER POCT Final Re sult LABORATORY POC [facility] Lab [address] Lab (1st floor, no room number) [place] [phone] * XR Chest Port 1 View (10/23/2024 8:59 AM PHOTOGRAPHIC AIDE) Anatomical Region Laterality Modality Chest Digital Radiogra phy 10/23/2024 8:59 AM PHOTOGRAPHIC AIDE Impressions 10/23/2024 9:03 AM PHOTOGRAPHIC AIDE IMPRESSION: Right-sided thoracostomy tube is again seen [...] acute bony abnormality. Narrative 10/23/2024 9:03 AM PHOTOGRAPHIC AIDE EXAM: XR CHEST PORT 1 VIEW LOCATION: [facility] DATE: 10/23/2024 INDICATION: pleural effusion, chest tube COMPARISON: 10/22/2024 Procedure Note Huma Helm MD - 10/23/2024 EXAM: XR CHEST PORT 1 VIEW LOCATION: [facility] DATE: 10/23/2024 INDICATION: pleural effusion, chest [...] (ABNORMAL) Glucose by meter (10/23/2024 8:44 AM PHOTOGRAPHIC AIDE) [facility] GLUCOSE BY METER POCT 111(H) 70 - 99 mg/dL 10/23/2024 8:51 AM PHOTOGRAPHIC AIDE LABORATORY POC Blood, Capillary BLOOD SPECIMEN / Unknown 10/23/2024 8:44 AM PHOTOGRAPHIC AIDE 10/23/2024 8:51 AM PHOTOGRAPHIC AIDE Arielle NG - CARLOS ALBERTOAKER POCT Final Re sult RH LABORATORY [facility] Lab [address] Lab (1st floor, no room number) [place] [phone] [place] [address] * Extra Purple Top EDTA (LAB USE ONLY) (10/23/2024 6:41 AM PHOTOGRAPHIC AIDE) Hold Specimen JIC 10/23/2024 8:16 AM PHOTOGRAPHIC AIDE [facility] LABORATORY Blood BLOOD SPECIMEN / Unknown Venipuncture / Unknown 10/23/2024 6:41 AM PHOTOGRAPHIC AIDE 10/23/2024 7:09 AM PHOTOGRAPHIC AIDE us Arielle Martel DO LAB - BLOOD ORDERABLES Fin al Result [facility] Lab [address] Lab (1st floor, no room number) [address] [place] [address] * Phosphorus (10/23/2024 6:41 AM PHOTOGRAPHIC AIDE) Phosphorus 3.4 2.5 - 4.5 mg/dL 10/23/2024 7:45 AM PHOTOGRAPHIC AIDE LABORATORY Blood BLOOD SPECIMEN / Unknown Venipuncture / Unknown 10/23/2024 6:41 AM PHOTOGRAPHIC AIDE 10/23/2024 7:09 AM PHOTOGRAPHIC AIDE Wilber Torres MD LAB - BLOOD ORDERABLES Fi nal Result [facility] Lab [address] Lab (1st floor, no room number) [place] [phone] [place] [address] * Magnesium (10/23/2024 6:41 AM PHOTOGRAPHIC AIDE) Magnesium 2.0 1.7 - 2.3 mg/dL 10/23/2024 7:45 AM PHOTOGRAPHIC AIDE [facility] LABORATORY Blood BLOOD SPECIMEN / Unknown Venipuncture / Unknown 10/23/2024 6:41 AM PHOTOGRAPHIC AIDE 10/23/2024 7:09 AM PHOTOGRAPHIC AIDE Wilber Torres MD LAB - BLOOD ORDERABLES Fi nal Result [facility] Lab [address] Lab (1st floor, no room number) [place] [phone] * (ABNORMAL) Glucose by meter (10/23/2024 2:08 AM PHOTOGRAPHIC AIDE) GLUCOSE BY METER POCT 204(H) 70 - 99 mg/dL 10/23/2024 2:14 AM PHOTOGRAPHIC AIDE LABORATORY POC Blood, Capillary BLOOD SPECIMEN / Unknown 10/23/2024 2:08 AM PHOTOGRAPHIC AIDE 10/23/2024 2:14 AM PHOTOGRAPHIC AIDE Arielle RodgerElixr LAB - BEAKER POCT Final Re sult LABORATORY [facility] Lab [address] Lab (1st floor, no room number) [place] [phone] * (ABNORMAL) Glucose by meter (10/22/2024 9:32 PM PHOTOGRAPHIC AIDE) GLUCOSE BY METER POCT 310(H) 70 - 99 mg/dL 10/22/2024 9:40 PM PHOTOGRAPHIC AIDE LABORATORY POC Comment:Dr/RN Notified Blood, Capillary BLOOD SPECIMEN / Unknown 10/22/2024 9:32 PM PHOTOGRAPHIC AIDE 10/22/2024 9:40 PM PHOTOGRAPHIC AIDE Arielle Daltonramez LAB - BEAKER POCT Final Re sult LABORATORY [facility] Lab [address] Lab (1st floor, no room number) [place] [phone] * (ABNORMAL) Glucose by meter (10/22/2024 4:45 PM PHOTOGRAPHIC AIDE) GLUCOSE BY METER POCT 199(H) 70 - 99 mg/dL 10/22/2024 4:51 PM PHOTOGRAPHIC AIDE LABORATORY POC Blood, Capillary BLOOD SPECIMEN / Unknown 10/22/2024 4:45 PM PHOTOGRAPHIC AIDE 10/22/2024 4:51 PM PHOTOGRAPHIC AIDE Arielle Martel DO LAB - BEAKER POCT Final Re sult Performing Organization Address City/[facility]/ZIP Co de Phone Number LABORATORY [facility] [address] (1st floor, no room number) [place] [address], [facility] [place] * Procalcitonin (10/22/2024 12:14 PM PHOTOGRAPHIC AIDE) Procalcitonin 0.33 <0.50 ng/mL 10/22/2024 1:06 PM PHOTOGRAPHIC AIDE LABORATORY Comment: Interpretation and Recommendations <0.5 ng/mL: Systemic bacterial infection unlikely. Local bacterial infection is possible. 0.5-1.99 ng/mL: Systemic bacterial infection possible, but various other conditions are known to induce PCT as well. >=2.00 ng/mL: Systemic bacterial infection likely, unless other causes are known. Decision to start antibiotics should not be based on procalcitonin level alone. See Procalcitonin Guidance document for more details. [email or web address] Factors that may affect PCT levels (not [...] Unknown Venipuncture / Unknown 10/22/2024 12:14 PM PHOTOGRAPHIC AIDE 10/22/2024 12:31 PM PHOTOGRAPHIC AIDE us Nima Acosta MD LAB - BLOOD ORDERABLES Final Re sult Performing Organization Address City/[facility]/ZIP Co de Phone Number [facility] [address] (1st floor, no room number) [place] [phone] * (ABNORMAL) CRP inflammation (10/22/2024 12:14 PM PHOTOGRAPHIC AIDE) CRP Inflammation 169.37(H) <5.00 mg/L 10/22/2024 1:00 PM PHOTOGRAPHIC AIDE LABORATORY Blood STRUCTURE OF RIGHT HAND / Unknown Venipuncture / Unknown 10/22/2024 12:14 PM PHOTOGRAPHIC AIDE 10/22/2024 12:31 PM PHOTOGRAPHIC AIDE us Nima Acosta MD LAB - BLOOD ORDERABLES Final Re sult LABORATORY [facility] [address] [facility] [address] (1st floor, no room number) [place] [phone] * (ABNORMAL) Glucose by meter (10/22/2024 12:00 PM PHOTOGRAPHIC AIDE) GLUCOSE BY METER POCT 167(H) 70 - 99 mg/dL 10/22/2024 12:06 PM PHOTOGRAPHIC AIDE LABORATORY POC Blood, Capillary BLOOD SPECIMEN / Unknown 10/22/2024 12:00 PM PHOTOGRAPHIC AIDE 10/22/2024 12:06 PM PHOTOGRAPHIC AIDE us Arielle Martel DO LAB - BEAKER POCT Final Re sult LABORATORY POC [facility] [address] [facility] Lab (1st floor, no room number) [place] [address], [facility] [place] * XR Chest Port 1 View (10/22/2024 9:27 AM PHOTOGRAPHIC AIDE) Anatomical Region Laterality Modality Chest Digital Radiogra phy 10/22/2024 9:27 AM PHOTOGRAPHIC AIDE Impressions 10/22/2024 9:40 AM PHOTOGRAPHIC AIDE IMPRESSION: A right-sided thoracostomy tube is present [...] acute osseous abnormality. Narrative 10/22/2024 9:40 AM PHOTOGRAPHIC AIDE EXAM: XR CHEST PORT 1 VIEW LOCATION: [facility] DATE: 10/22/2024 INDICATION: Pleural effusion, chest tube. COMPARISON: 10/19/2024, 10/15/2024. Procedure Note Rolf Uriostegui, DO - 10/22/2024 EXAM: XR CHEST PORT 1 VIEW LOCATION: [facility] DATE: 10/22/2024 INDICATION: Pleural effusion, chest tube. [...] * Glucose by meter (10/22/2024 8:07 AM PHOTOGRAPHIC AIDE) Pathologist [facility] [place] GLUCOSE BY METER POCT 86 70 - 99 mg/dL 10/22/2024 8:15 AM PHOTOGRAPHIC AIDE LABORATORY POC Blood, Capillary BLOOD SPECIMEN / Unknown 10/22/2024 8:07 AM PHOTOGRAPHIC AIDE 10/22/2024 8:15 AM PHOTOGRAPHIC AIDE Arielle NG - CARLOS ALBERTOAKER POCT Final Re sult LABORATORY POC [facility] [address] Lab (1st floor, no room number) [place] [address] * (ABNORMAL) CBC with platelets (10/22/2024 7:03 AM PHOTOGRAPHIC AIDE) WBC Count 9.1 4.0 - 11.0 10e3/uL 10/22/2024 7:25 AM PHOTOGRAPHIC AIDE RH LABORATORY RBC Count 4.14(L) 4.40 - 5.90 10e6/uL 10/22/2024 7:25 AM PHOTOGRAPHIC AIDE RH LABORATORY Hemoglobin 12.0(L) 13.3 - 17.7 g/dL 10/22/2024 7:25 AM PHOTOGRAPHIC AIDE RH LABORATORY Hematocrit 36.7(L) 40.0 - 53.0 % 10/22/2024 7:25 AM PHOTOGRAPHIC AIDE RH LABORATORY MCV 89 78 - 100 fL 10/22/2024 7:25 AM PHOTOGRAPHIC AIDE RH LABORATORY MCH 29.0 26.5 - 33.0 pg 10/22/2024 7:25 AM PHOTOGRAPHIC AIDE RH LABORATORY MCHC 32.7 31.5 - 36.5 g/dL 10/22/2024 7:25 AM PHOTOGRAPHIC AIDE RH LABORATORY RDW 12.2 10.0 - 15.0 % 10/22/2024 7:25 AM PHOTOGRAPHIC AIDE RH LABORATORY Platelet Count 325 150 - 450 10e3/uL 10/22/2024 7:25 AM PHOTOGRAPHIC AIDE LABORATORY Blood BLOOD SPECIMEN / Unknown Venipuncture / Unknown 10/22/2024 7:03 AM PHOTOGRAPHIC AIDE 10/22/2024 7:13 AM PHOTOGRAPHIC AIDE us Wilber Torres MD LAB - BLOOD ORDERABLES Fi nal Result RH LABORATORY [facility] [address] Lab (1st floor, no room number) [place] [address] * (ABNORMAL) Basic metabolic panel (10/22/2024 7:03 AM PHOTOGRAPHIC AIDE) Sodium 130(L) 135 - 145 mmol/L 10/22/2024 8:05 AM PHOTOGRAPHIC AIDE LABORATORY Potassium 4.3 3.4 - 5.3 mmol/L 10/22/2024 8:05 AM [facility] LABORATORY Chloride 92(L) 98 - 107 mmol/L 10/22/2024 8:05 AM [facility] LABORATORY Carbon Dioxide (CO2) 30(H) 22 - 29 mmol/L 10/22/2024 8:05 AM [facility] LABORATORY Anion Gap 8 7 - 15 mmol/L 10/22/2024 8:05 AM [facility] LABORATORY Urea Nitrogen 14.7 8.0 - 23.0 mg/dL 10/22/2024 8:05 AM [facility] LABORATORY Creatinine 0.67 0.67 - 1.17 mg/dL 10/22/2024 8:05 AM [facility] LABORATORY GFR Estimate >90 >60 mL/min/1.7 3m2 10/22/2024 8:05 AM [facility] LABORATORY Comment:eGFR calculated usin 2020 CKD-EPI equation. Calcium 8.1(L) 8.8 - 10.4 mg/dL 10/22/2024 8:05 AM [facility] LABORATORY Glucose 95 70 - 99 mg/dL 10/22/2024 8:05 AM [facility] LABORATORY Blood BLOOD SPECIMEN / Unknown Venipuncture / Unknown 10/22/2024 7:03 AM PHOTOGRAPHIC AIDE 10/22/2024 7:13 AM PHOTOGRAPHIC AIDE Wilber Torres MD LAB - BLOOD ORDERABLES Fi nal Result [facility] [address] [facility] Lab (1st floor, no room number) [place] [address] * Phosphorus (10/22/2024 7:03 AM PHOTOGRAPHIC AIDE) Pathologist [facility] [place] Phosphorus 3.2 2.5 - 4.5 mg/dL 10/22/2024 7:47 AM PHOTOGRAPHIC AIDE LABORATORY Blood BLOOD SPECIMEN / Unknown Venipuncture / Unknown 10/22/2024 7:03 AM PHOTOGRAPHIC AIDE 10/22/2024 7:13 AM PHOTOGRAPHIC AIDE Wilber Torres MD LAB - BLOOD ORDERABLES Fi nal Result [facility] [address] Lab (1st floor, no room number) [place] [phone] [place] [address] * Magnesium (10/22/2024 7:03 AM PHOTOGRAPHIC AIDE) Magnesium 2.1 1.7 - 2.3 mg/dL 10/22/2024 7:47 AM PHOTOGRAPHIC AIDE RH LABORATORY Blood BLOOD SPECIMEN / Unknown Venipuncture / Unknown 10/22/2024 7:03 AM PHOTOGRAPHIC AIDE 10/22/2024 7:13 AM PHOTOGRAPHIC AIDE Wilber Torres MD LAB - BLOOD ORDERABLES Fi nal Result LABORATORY [facility] [address] [facility] Lab (1st floor, no room number) [address] [place] [address] * (ABNORMAL) Glucose by meter (10/22/2024 2:35 AM PHOTOGRAPHIC AIDE) GLUCOSE BY METER POCT 118(H) 70 - 99 mg/dL 10/22/2024 2:42 AM PHOTOGRAPHIC AIDE LABORATORY POC Blood, Capillary BLOOD SPECIMEN / Unknown 10/22/2024 2:35 AM PHOTOGRAPHIC AIDE 10/22/2024 2:42 AM PHOTOGRAPHIC AIDE us Arielle Martel DO LAB - BEAKER POCT Final Re sult LABORATORY POC [facility] [address] Lab (1st floor, no room number) [address] [place] [address] * (ABNORMAL) Glucose by meter (10/21/2024 9:58 PM PHOTOGRAPHIC AIDE) GLUCOSE BY METER POCT 239(H) 70 - 99 mg/dL 10/21/2024 10:05 PM PHOTOGRAPHIC AIDE LABORATORY POC Blood, Capillary BLOOD SPECIMEN / Unknown 10/21/2024 9:58 PM PHOTOGRAPHIC AIDE 10/21/2024 10:05 PM PHOTOGRAPHIC AIDE Arielle Martel DO LAB - BEAKER POCT Final Re sult LABORATORY [facility] [address] Lab (1st floor, no room number) [address] * (ABNORMAL) Glucose by meter (10/21/2024 5:26 PM PHOTOGRAPHIC AIDE) GLUCOSE BY METER POCT 337(H) 70 - 99 mg/dL 10/21/2024 5:33 PM PHOTOGRAPHIC AIDE RH LABORATORY POC Blood, Capillary BLOOD SPECIMEN / Unknown 10/21/2024 5:26 PM PHOTOGRAPHIC AIDE 10/21/2024 5:33 PM PHOTOGRAPHIC AIDE Arielle Martel DO LAB - BEAKER POCT Final Re sult Performing Organization Address [facility]/ZIP Co de Phone Number LABORATORY [facility] [address] Lab (1st floor, no room number) [address] * (ABNORMAL) Glucose by meter (10/21/2024 1:24 PM PHOTOGRAPHIC AIDE) GLUCOSE BY METER POCT 251(H) 70 - 99 mg/dL 10/21/2024 1:30 PM PHOTOGRAPHIC AIDE LABORATORY POC Blood, Capillary BLOOD SPECIMEN / Unknown 10/21/2024 1:24 PM PHOTOGRAPHIC AIDE 10/21/2024 1:30 PM PHOTOGRAPHIC AIDE Arielle Martel DO LAB - BEAKER POCT Final Re sult LABORATORY [facility] [address] Lab (1st floor, no room number) [address] * Glucose by meter (10/21/2024 9:06 AM PHOTOGRAPHIC AIDE) GLUCOSE BY METER POCT 93 70 - 99 mg/dL 10/21/2024 9:13 AM PHOTOGRAPHIC AIDE LABORATORY POC Blood, Capillary BLOOD SPECIMEN / Unknown 10/21/2024 9:06 AM PHOTOGRAPHIC AIDE 10/21/2024 9:13 AM PHOTOGRAPHIC AIDE us Arielle Martel DO LAB - BEAKER POCT Final Re sult LABORATORY [facility] [address] Lab (1st floor, no room number) [place] [address], [facility] [place] * Phosphorus (10/21/2024 6:05 AM PHOTOGRAPHIC AIDE) Phosphorus 3.8 2.5 - 4.5 mg/dL 10/21/2024 7:08 AM PHOTOGRAPHIC AIDE LABORATORY Blood STRUCTURE OF RIGHT UPPER LIMB / Unknown Venipuncture / Unknown 10/21/2024 6:05 AM PHOTOGRAPHIC AIDE 10/21/2024 6:42 AM PHOTOGRAPHIC AIDE us Kayla Baca MD LAB - BLOOD ORDERABLES Final Res ult Performing Organization Address City/[facility]/ZIP Co de Phone Number [facility] [address] Lab (1st floor, no room number) [place] [address], [facility] [place] * Magnesium (10/21/2024 6:05 AM PHOTOGRAPHIC AIDE) Magnesium 2.2 1.7 - 2.3 mg/dL 10/21/2024 7:08 AM PHOTOGRAPHIC AIDE LABORATORY Blood STRUCTURE OF RIGHT UPPER LIMB / Unknown Venipuncture / Unknown 10/21/2024 6:05 AM PHOTOGRAPHIC AIDE 10/21/2024 6:42 AM PHOTOGRAPHIC AIDE us Chris Suarez MD LAB - BLOOD ORDER MIRNA Final Result [facility] [address] Lab (1st floor, no room number) [place] [address], [facility] [place] * Glucose by meter (10/21/2024 3:40 AM PHOTOGRAPHIC AIDE) GLUCOSE BY METER POCT 83 70 - 99 mg/dL 10/21/2024 3:47 AM PHOTOGRAPHIC AIDE RH LABORATORY POC Blood, Capillary BLOOD SPECIMEN / Unknown 10/21/2024 3:40 AM PHOTOGRAPHIC AIDE 10/21/2024 3:47 AM PHOTOGRAPHIC AIDE Arielle Martel DO LAB - BEAKER POCT Final Re sult LABORATORY [facility] [address] Lab (1st floor, no room number) [place] [phone], [facility] [place] * (ABNORMAL) Glucose by meter (10/21/2024 1:55 AM PHOTOGRAPHIC AIDE) GLUCOSE BY METER POCT 108(H) 70 - 99 mg/dL 10/21/2024 2:01 AM PHOTOGRAPHIC AIDE LABORATORY POC Blood, Capillary BLOOD SPECIMEN / Unknown 10/21/2024 1:55 AM PHOTOGRAPHIC AIDE 10/21/2024 2:01 AM PHOTOGRAPHIC AIDE Arielleemile Martel DO LAB - BEAKER POCT Final Re sult Performing Organization Address City/[facility]/ZIP Co de Phone Number LABORATORY [facility] [address] Lab (1st floor, no room number) [place] [phone], [facility] [place] * (ABNORMAL) Glucose by meter (10/20/2024 9:14 PM PHOTOGRAPHIC AIDE) GLUCOSE BY METER POCT 237(H) 70 - 99 mg/dL 10/20/2024 9:21 PM PHOTOGRAPHIC AIDE LABORATORY POC Blood, Capillary BLOOD SPECIMEN / Unknown 10/20/2024 9:14 PM PHOTOGRAPHIC AIDE 10/20/2024 9:21 PM PHOTOGRAPHIC AIDE Arielle Martel DO LAB - BEAKER POCT Final Re sult LABORATORY [facility] [address] Lab (1st floor, no room number) [place] [phone] * (ABNORMAL) Glucose by meter (10/20/2024 5:26 PM PHOTOGRAPHIC AIDE) GLUCOSE BY METER POCT 258(H) 70 - 99 mg/dL 10/20/2024 5:33 PM PHOTOGRAPHIC AIDE LABORATORY POC Blood, Capillary BLOOD SPECIMEN / Unknown 10/20/2024 5:26 PM PHOTOGRAPHIC AIDE 10/20/2024 5:33 PM PHOTOGRAPHIC AIDE Arielle Martel DO LAB - BEAKER POCT Final Re sult [facility] [address] Lab (1st floor, no room number) [place] [address] * Extra Purple Top Tube (10/20/2024 7:15 AM PHOTOGRAPHIC AIDE) Hold Specimen JIC 10/20/2024 10:31 AM PHOTOGRAPHIC AIDE LABORATORY Blood STRUCTURE OF RIGHT UPPER LIMB / Unknown Venipuncture / Unknown 10/20/2024 7:15 AM PHOTOGRAPHIC AIDE 10/20/2024 9:24 AM PHOTOGRAPHIC AIDE Arielle Martel DO LAB - BLOOD ORDERABLES Fin al Result [facility] [address] Lab (1st floor, no room number) [place] [address], [facility] [place] * Magnesium (10/20/2024 7:15 AM PHOTOGRAPHIC AIDE) Magnesium 2.0 1.7 - 2.3 mg/dL 10/20/2024 7:58 AM PHOTOGRAPHIC AIDE LABORATORY Blood STRUCTURE OF RIGHT UPPER LIMB / Unknown Venipuncture / Unknown 10/20/2024 7:15 AM PHOTOGRAPHIC AIDE 10/20/2024 7:30 AM PHOTOGRAPHIC AIDE us Chris Suarez MD LAB - BLOOD ORDER MIRNA Final Result [facility] [address] Lab (1st floor, no room number) [place] [address] * Phosphorus (10/20/2024 7:15 AM PHOTOGRAPHIC AIDE) Phosphorus 3.6 2.5 - 4.5 mg/dL 10/20/2024 7:58 AM PHOTOGRAPHIC AIDE LABORATORY Blood STRUCTURE OF RIGHT UPPER LIMB / Unknown Venipuncture / Unknown 10/20/2024 7:15 AM PHOTOGRAPHIC AIDE 10/20/2024 7:30 AM PHOTOGRAPHIC AIDE us Chris Suarez MD LAB - BLOOD ORDER MIRNA Final Result [facility] [address] Lab (1st floor, no room number) [place] [address] * (ABNORMAL) Glucose by meter (10/20/2024 6:00 AM PHOTOGRAPHIC AIDE) GLUCOSE BY METER POCT 139(H) 70 - 99 mg/dL 10/20/2024 6:10 AM PHOTOGRAPHIC AIDE LABORATORY POC Blood, Capillary BLOOD SPECIMEN / Unknown 10/20/2024 6:00 AM PHOTOGRAPHIC AIDE 10/20/2024 6:10 AM PHOTOGRAPHIC AIDE us Arielle Martel DO LAB - BEAKER POCT Final Re sult [facility] [address] Lab (1st floor, no room number) [place] [address], [facility] [place] * Glucose by meter (10/20/2024 5:11 AM PHOTOGRAPHIC AIDE) GLUCOSE BY METER POCT 83 70 - 99 mg/dL 10/20/2024 5:18 AM PHOTOGRAPHIC AIDE LABORATORY POC Blood, Capillary BLOOD SPECIMEN / Unknown 10/20/2024 5:11 AM PHOTOGRAPHIC AIDE 10/20/2024 5:18 AM PHOTOGRAPHIC AIDE us Arielle Martel DO LAB - BEAKER POCT Final Re sult LABORATORY [facility] [address] Lab (1st floor, no room number) [address] * (ABNORMAL) Glucose by meter (10/20/2024 2:03 AM PHOTOGRAPHIC AIDE) GLUCOSE BY METER POCT 124(H) 70 - 99 mg/dL 10/20/2024 2:09 AM PHOTOGRAPHIC AIDE LABORATORY POC Blood, Capillary BLOOD SPECIMEN / Unknown 10/20/2024 2:03 AM PHOTOGRAPHIC AIDE 10/20/2024 2:09 AM PHOTOGRAPHIC AIDE Arielle Martel DO LAB - BEAKER POCT Final Re sult Performing Organization Address [facility]/ZIP Co de Phone Number LABORATORY [facility] [address] Lab (1st floor, no room number) [place] [phone] * (ABNORMAL) Glucose by meter (10/20/2024 12:30 AM PHOTOGRAPHIC AIDE) GLUCOSE BY METER POCT 105(H) 70 - 99 mg/dL 10/20/2024 12:37 AM PHOTOGRAPHIC AIDE LABORATORY POC Blood, Capillary BLOOD SPECIMEN / Unknown 10/20/2024 12:30 AM PHOTOGRAPHIC AIDE 10/20/2024 12:37 AM PHOTOGRAPHIC AIDE Arielle Martel DO LAB - BEAKER POCT Final Re sult LABORATORY [facility] [address] Lab (1st floor, no room number) [address] * Glucose by meter (10/20/2024 12:06 AM PHOTOGRAPHIC AIDE) GLUCOSE BY METER POCT 76 70 - 99 mg/dL 10/20/2024 12:13 AM PHOTOGRAPHIC AIDE LABORATORY POC Blood, Capillary BLOOD SPECIMEN / Unknown 10/20/2024 12:06 AM PHOTOGRAPHIC AIDE 10/20/2024 12:13 AM PHOTOGRAPHIC AIDE Arielle Martel DO LAB - BEAKER POCT Final Re sult LABORATORY [facility] [address] Lab (1st floor, no room number) [place] [address] * (ABNORMAL) Glucose by meter (10/19/2024 9:06 PM PHOTOGRAPHIC AIDE) GLUCOSE BY METER POCT 162(H) 70 - 99 mg/dL 10/19/2024 9:13 PM PHOTOGRAPHIC AIDE LABORATORY POC Blood, Capillary BLOOD SPECIMEN / Unknown 10/19/2024 9:06 PM PHOTOGRAPHIC AIDE 10/19/2024 9:13 PM PHOTOGRAPHIC AIDE Arielle Martel DO LAB - BEAKER POCT Final Re sult Performing Organization Address [facility]/ZIP Co de Phone Number LABORATORY [facility] [address] Lab (1st floor, no room number) [place] [address], [facility] [place] * (ABNORMAL) Glucose by meter (10/19/2024 5:55 PM PHOTOGRAPHIC AIDE) GLUCOSE BY METER POCT 280(H) 70 - 99 mg/dL 10/19/2024 6:02 PM PHOTOGRAPHIC AIDE LABORATORY POC Blood, Capillary BLOOD SPECIMEN / Unknown 10/19/2024 5:55 PM PHOTOGRAPHIC AIDE 10/19/2024 6:02 PM PHOTOGRAPHIC AIDE Arielleemile Martel LAB - BEAKER POCT Final Re sult LABORATORY [facility] [address] Lab (1st floor, no room number) [place] [phone], [facility] * (ABNORMAL) Glucose by meter (10/19/2024 11:44 AM PHOTOGRAPHIC AIDE) GLUCOSE BY METER POCT 235(H) 70 - 99 mg/dL 10/19/2024 11:53 AM PHOTOGRAPHIC AIDE RH LABORATORY POC Blood, Capillary BLOOD SPECIMEN / Unknown 10/19/2024 11:44 AM PHOTOGRAPHIC AIDE 10/19/2024 11:53 AM PHOTOGRAPHIC AIDE us Arielle Soaresotiliaramez DO LAB - BEAKER POCT Final Re sult Performing Organization Address City/[facility]/ZIP Co de Phone Number LABORATORY [facility] [address] Lab (1st floor, no room number) [place] [address], [facility] [place] * (ABNORMAL) Glucose by meter (10/19/2024 8:17 AM PHOTOGRAPHIC AIDE) GLUCOSE BY METER POCT 144(H) 70 - 99 mg/dL 10/19/2024 8:27 AM PHOTOGRAPHIC AIDE LABORATORY POC Blood, Capillary BLOOD SPECIMEN / Unknown 10/19/2024 8:17 AM PHOTOGRAPHIC AIDE 10/19/2024 8:27 AM PHOTOGRAPHIC AIDE us Arielle Barretocory DO LAB - BEAKER POCT Final Re sult Performing Organization Address [facility] Co de Phone Number LABORATORY [facility] [address] Lab (1st floor, no room number) [place] [phone], [facility] * XR Chest Port 1 View (10/19/2024 8:16 AM PHOTOGRAPHIC AIDE) Anatomical Region Laterality Modality Chest Digital Radiogra phy 10/19/2024 8:16 AM PHOTOGRAPHIC AIDE Impressions 10/19/2024 12:25 PM PHOTOGRAPHIC AIDE IMPRESSION: Small bore right-sided thoracostomy tube in good position. Right- sided pleural fluid, decreased since prior with loculated pleural fluid along the lateral aspect of the right hemithorax and within the fissure. No definitive evidence for pneumothorax. Atelectasis both right and left lung bases. Normal heart size and pulmonary vascularity. Minimal pleural fluid left lung base. Narrative 10/19/2024 12:25 PM PHOTOGRAPHIC AIDE EXAM: XR CHEST PORTABLE 1 VIEW LOCATION: [facility] DATE: 10/19/2024 INDICATION: Chest tube, follow-up effusion. COMPARISON: CT 10/15/2024, 10/17/2024. Procedure Note Dawit Hernández MD - 10/19/2024 EXAM: XR CHEST PORTABLE 1 VIEW LOCATION: [facility] DATE: 10/19/2024 INDICATION: Chest tube, follow-up effusion. [...] EDTA (LAB USE ONLY) (10/19/2024 6:34 AM PHOTOGRAPHIC AIDE) Hold Specimen JI 10/19/2024 7:46 AM PHOTOGRAPHIC AIDE LABORATORY Blood STRUCTURE OF RIGHT UPPER LIMB / Unknown Venipuncture / Unknown 10/19/2024 6:34 AM PHOTOGRAPHIC AIDE 10/19/2024 6:37 AM PHOTOGRAPHIC AIDE Arielle Martel DO LAB - BLOOD ORDERABLES Fin al Result [facility] [address] Lab (1st floor, no room number) [place] [address], [facility] * Phosphorus (10/19/2024 6:34 AM PHOTOGRAPHIC AIDE) Phosphorus 3.9 2.5 - 4.5 mg/dL 10/19/2024 7:07 AM PHOTOGRAPHIC AIDE LABORATORY Blood STRUCTURE OF RIGHT UPPER LIMB / Unknown Venipuncture / Unknown 10/19/2024 6:34 AM PHOTOGRAPHIC AIDE 10/19/2024 6:37 AM PHOTOGRAPHIC AIDE Chris Suarez MD LAB - BLOOD ORDER MIRNA Final Result [facility] [address] Lab (1st floor, no room number) [place] [address] * Magnesium (10/19/2024 6:34 AM PHOTOGRAPHIC AIDE) Magnesium 2.0 1.7 - 2.3 mg/dL 10/19/2024 7:07 AM PHOTOGRAPHIC AIDE LABORATORY Blood STRUCTURE OF RIGHT UPPER LIMB / Unknown Venipuncture / Unknown 10/19/2024 6:34 AM PHOTOGRAPHIC AIDE 10/19/2024 6:37 AM PHOTOGRAPHIC AIDE us Chris Suarez MD LAB - BLOOD ORDER MIRNA Final Result Performing Organization Address City/[facility]/ZIP Co de Phone Number [facility] [address] Lab (1st floor, no room number) [place] [address], [facility] * Creatinine (10/19/2024 6:34 AM PHOTOGRAPHIC AIDE) Creatinine 0.78 0.67 - 1.17 mg/dL 10/19/2024 7:07 AM PHOTOGRAPHIC AIDE LABORATORY GFR Estimate >90 >60 mL/min/1.7 3m2 10/19/2024 7:07 AM PHOTOGRAPHIC AIDE LABORATORY Comment:eGFR calculated usin g 2020 CKD-EPI equation. Blood STRUCTURE OF RIGHT UPPER LIMB / Unknown Venipuncture / Unknown 10/19/2024 6:34 AM PHOTOGRAPHIC AIDE 10/19/2024 6:37 AM PHOTOGRAPHIC AIDE us Bernardino Garcia MD LAB - BLOOD ORDERABLES Final Result [facility] [address] Lab (1st floor, no room number) [place] [address], [facility] * (ABNORMAL) Glucose by meter (10/19/2024 2:17 AM PHOTOGRAPHIC AIDE) GLUCOSE BY METER POCT 170(H) 70 - 99 mg/dL 10/19/2024 2:24 AM PHOTOGRAPHIC AIDE RH LABORATORY POC Blood, Capillary BLOOD SPECIMEN / Unknown 10/19/2024 2:17 AM PHOTOGRAPHIC AIDE 10/19/2024 2:24 AM PHOTOGRAPHIC AIDE Arielle Martel DO LAB - BEAKER POCT Final Re sult LABORATORY [facility] [address] Lab (1st floor, no room number) [place] [phone] [place] [address] * (ABNORMAL) Glucose by meter (10/18/2024 9:31 PM PHOTOGRAPHIC AIDE) GLUCOSE BY METER POCT 195(H) 70 - 99 mg/dL 10/18/2024 9:37 PM PHOTOGRAPHIC AIDE LABORATORY POC Blood, Capillary BLOOD SPECIMEN / Unknown 10/18/2024 9:31 PM PHOTOGRAPHIC AIDE 10/18/2024 9:37 PM PHOTOGRAPHIC AIDE Arielle Martel DO LAB - BEAKER POCT Final Re sult Performing Organization Address [facility]/ZIP Co de Phone Number [facility] [address] Lab (1st floor, no room number) [place] [phone] * (ABNORMAL) Glucose by meter (10/18/2024 4:40 PM PHOTOGRAPHIC AIDE) GLUCOSE BY METER POCT 255(H) 70 - 99 mg/dL 10/18/2024 4:46 PM PHOTOGRAPHIC AIDE LABORATORY POC Blood, Capillary BLOOD SPECIMEN / Unknown 10/18/2024 4:40 PM PHOTOGRAPHIC AIDE 10/18/2024 4:46 PM PHOTOGRAPHIC AIDE Arielle Martel DO LAB - BEAKER POCT Final Re sult LABORATORY [facility] [address] Lab (1st floor, no room number) [place] [phone] * (ABNORMAL) Glucose by meter (10/18/2024 12:57 PM PHOTOGRAPHIC AIDE) GLUCOSE BY METER POCT 310(H) 70 - 99 mg/dL 10/18/2024 1:06 PM PHOTOGRAPHIC AIDE LABORATORY POC Blood, Capillary BLOOD SPECIMEN / Unknown 10/18/2024 12:57 PM PHOTOGRAPHIC AIDE 10/18/2024 1:06 PM PHOTOGRAPHIC AIDE Arielle Delonte DO LAB - BEAKER POCT Final Re sult LABORATORY [facility] [address] Lab (1st floor, no room number) [place] [phone] * (ABNORMAL) Glucose by meter (10/18/2024 8:27 AM PHOTOGRAPHIC AIDE) GLUCOSE BY METER POCT 105(H) 70 - 99 mg/dL 10/18/2024 8:34 AM PHOTOGRAPHIC AIDE LABORATORY POC Blood, Capillary BLOOD SPECIMEN / Unknown 10/18/2024 8:27 AM PHOTOGRAPHIC AIDE 10/18/2024 8:34 AM PHOTOGRAPHIC AIDE Arielle Delonte [facility] - BEAKER POCT Final Re sult LABORATORY [facility] [address] Lab (1st floor, no room number) [place] [phone], [facility] [place] * Extra Purple Top EDTA (LAB USE ONLY) (10/18/2024 6:33 AM PHOTOGRAPHIC AIDE) Hold Specimen JIC 10/18/2024 8:06 AM PHOTOGRAPHIC AIDE LABORATORY Blood STRUCTURE OF RIGHT UPPER LIMB / Unknown Venipuncture / Unknown 10/18/2024 6:33 AM PHOTOGRAPHIC AIDE 10/18/2024 6:53 AM PHOTOGRAPHIC AIDE Arielle Martel DO LAB - BLOOD ORDERABLES Fin al Result LABORATORY [facility] [address] Lab (1st floor, no room number) [place] [phone] * (ABNORMAL) Basic metabolic panel (10/18/2024 6:33 AM PHOTOGRAPHIC AIDE) [facility] Sodium 139 135 - 145 mmol/L 10/18/2024 8:05 AM [facility] Potassium 3.4 3.4 - 5.3 mmol/L 10/18/2024 8:05 AM [facility] Chloride 99 98 - 107 mmol/L 10/18/2024 8:05 AM [facility] Carbon Dioxide (CO2) 31(H) 22 - 29 mmol/L 10/18/2024 8:05 AM [facility] Anion Gap 9 7 - 15 mmol/L 10/18/2024 8:05 AM [facility] Urea Nitrogen 22.6 8.0 - 23.0 mg/dL 10/18/2024 8:05 AM [facility] Creatinine 0.71 0.67 - 1.17 mg/dL 10/18/2024 8:05 AM [facility] GFR Estimate >90 >60 mL/min/1.7 3m2 10/18/2024 8:05 AM [facility] Comment:eGFR calculated usmi g 2020 CKD-EPI equation. Calcium 8.5(L) 8.8 - 10.4 mg/dL 10/18/2024 8:05 AM [facility] Glucose 117(H) 70 - 99 mg/dL 10/18/2024 8:05 AM [facility] Blood STRUCTURE OF RIGHT UPPER LIMB / Unknown Venipuncture / Unknown 10/18/2024 6:33 AM PHOTOGRAPHIC AIDE 10/18/2024 6:53 AM PHOTOGRAPHIC AIDE Horacio Galan MD LAB - BLOOD ORDERABLES F inal Result [facility] [address] [address] [facility] (1st floor, no room number) [place] [address], [place] * Phosphorus (10/18/2024 6:33 AM PHOTOGRAPHIC AIDE) Phosphorus 4.1 2.5 - 4.5 mg/dL 10/18/2024 7:22 AM PHOTOGRAPHIC AIDE LABORATORY Blood STRUCTURE OF RIGHT UPPER LIMB / Unknown Venipuncture / Unknown 10/18/2024 6:33 AM PHOTOGRAPHIC AIDE 10/18/2024 6:53 AM PHOTOGRAPHIC AIDE Chris Suarez MD LAB - BLOOD ORDER MIRNA Final Result Performing Organization Address City/[facility]/ZIP Co de Phone Number LABORATORY [facility] [address] (1st floor, no room number) [place] [phone] [place] [address] * Magnesium (10/18/2024 6:33 AM PHOTOGRAPHIC AIDE) Magnesium 2.1 1.7 - 2.3 mg/dL 10/18/2024 7:22 AM PHOTOGRAPHIC AIDE LABORATORY Blood STRUCTURE OF RIGHT UPPER LIMB / Unknown Venipuncture / Unknown 10/18/2024 6:33 AM PHOTOGRAPHIC AIDE 10/18/2024 6:53 AM PHOTOGRAPHIC AIDE Result [facility] Chris Suarez MD LAB - BLOOD ORDER MIRNA Final Result Performing Organization Address [facility] de Phone Number [facility] [address] Lab (1st floor, no room number) [place] [phone] * (ABNORMAL) Glucose by meter (10/18/2024 2:15 AM PHOTOGRAPHIC AIDE) GLUCOSE BY METER POCT 181(H) 70 - 99 mg/dL 10/21/2024 1:00 PM PHOTOGRAPHIC AIDE LABORATORY POC Comment:Dr/RN Notified Blood, Capillary BLOOD SPECIMEN / Unknown 10/18/2024 2:15 AM PHOTOGRAPHIC AIDE 10/21/2024 1:00 PM PHOTOGRAPHIC AIDE Arielle Martel DO LAB - BEAKER POCT Final Re sult Performing Organization Address City/[facility]/ZIP Co de Phone Number LABORATORY [facility] [address] Lab (1st floor, no room number) [place] [address] * (ABNORMAL) Glucose by meter (10/17/2024 9:08 PM PHOTOGRAPHIC AIDE) GLUCOSE BY METER POCT 255(H) 70 - 99 mg/dL 10/17/2024 9:15 PM PHOTOGRAPHIC AIDE RH LABORATORY POC Blood, Capillary BLOOD SPECIMEN / Unknown 10/17/2024 9:08 PM PHOTOGRAPHIC AIDE 10/17/2024 9:15 PM PHOTOGRAPHIC AIDE Arielle Martel DO LAB - BEAKER POCT Final Re sult Performing Organization Address [facility]/ZIP Co de Phone Number LABORATORY [facility] [address] Lab (1st floor, no room number) [place] [address] * (ABNORMAL) Glucose by meter (10/17/2024 5:27 PM PHOTOGRAPHIC AIDE) GLUCOSE BY METER POCT 245(H) 70 - 99 mg/dL 10/17/2024 5:34 PM PHOTOGRAPHIC AIDE LABORATORY POC Blood, Capillary BLOOD SPECIMEN / Unknown 10/17/2024 5:27 PM PHOTOGRAPHIC AIDE 10/17/2024 5:34 PM PHOTOGRAPHIC AIDE Arielle Martel DO LAB - BEAKER POCT Final Re sult Performing Organization Address [facility]/ZIP Co de Phone Number LABORATORY [facility] [address] Lab (1st floor, no room number) [place] [address], [facility] * XR Chest Port 1 View (10/17/2024 3:37 PM PHOTOGRAPHIC AIDE) Anatomical Region Laterality Modality Chest Digital Radiogra phy 10/17/2024 3:37 PM PHOTOGRAPHIC AIDE Impressions 10/17/2024 3:40 PM PHOTOGRAPHIC AIDE IMPRESSION: Decreased right pleural effusion with a right chest tube in place. Stable small left pleural effusion and bibasilar atelectasis. Median sternotomy and aortic valvular prosthesis. No pneumothorax. Narrative 10/17/2024 3:40 PM PHOTOGRAPHIC AIDE EXAM: XR CHEST PORT 1 VIEW LOCATION: [facility] DATE: 10/17/2024 INDICATION: post right chest tube placement for right pleural effusion COMPARISON: 10/15/2024 Procedure Note Patito Velasquez MD - 10/17/2024 EXAM: XR CHEST PORT 1 VIEW LOCATION: [facility] DATE: 10/17/2024 INDICATION: post right chest tube placement for right pleural effusion COMPARISON: 10/15/2024 IMPRESSION: Decreased right pleural effusion with a right chest tube inplace. Stable small left pleural effusion and bibasilar atelectasis.Median sternotomy and aortic valvular prosthesis. No pneumothorax. us Kayla Baca MD IMG DIAGNOSTIC IMAGING ORDERABLE S Final Result * (ABNORMAL) Glucose by meter (10/17/2024 12:43 PM PHOTOGRAPHIC AIDE) GLUCOSE BY METER POCT 278(H) 70 - 99 mg/dL 10/17/2024 12:50 PM PHOTOGRAPHIC AIDE LABORATORY POC Blood, Capillary BLOOD SPECIMEN / Unknown 10/17/2024 12:43 PM PHOTOGRAPHIC AIDE 10/17/2024 12:50 PM PHOTOGRAPHIC AIDE us Arielle Martel DO LAB - BEAKER POCT Final Re sult LABORATORY [facility] [address] Lab (1st floor, no room number) [place] [address], [facility] * (ABNORMAL) Glucose by meter (10/17/2024 8:25 AM PHOTOGRAPHIC AIDE) GLUCOSE BY METER POCT 184(H) 70 - 99 mg/dL 10/21/2024 12:59 PM PHOTOGRAPHIC AIDE LABORATORY POC Blood, Capillary BLOOD SPECIMEN / Unknown 10/17/2024 8:25 AM PHOTOGRAPHIC AIDE 10/21/2024 12:59 PM PHOTOGRAPHIC AIDE Arielle Martel DO LAB - BEAKER POCT Final Re sult LABORATORY [facility] [address] Lab (1st floor, no room number) [address] * Extra Purple Top EDTA (LAB USE ONLY) (10/17/2024 6:53 AM PHOTOGRAPHIC AIDE) Hold Specimen JIC 10/17/2024 8:16 AM PHOTOGRAPHIC AIDE LABORATORY Blood TOPOGRAPHY UNKNOWN / Unknown Venipuncture / Unknown 10/17/2024 6:53 AM PHOTOGRAPHIC AIDE 10/17/2024 7:10 AM PHOTOGRAPHIC AIDE Arielle Martel DO LAB - BLOOD ORDERABLES Fin al Result Performing Organization Address City/[facility]/ZIP Co de Phone Number [facility] [address] Lab (1st floor, no room number) [address] * Phosphorus (10/17/2024 6:53 AM PHOTOGRAPHIC AIDE) Phosphorus 3.5 2.5 - 4.5 mg/dL 10/17/2024 7:32 AM PHOTOGRAPHIC AIDE RH LABORATORY Blood TOPOGRAPHY UNKNOWN / Unknown Venipuncture / Unknown 10/17/2024 6:53 AM PHOTOGRAPHIC AIDE 10/17/2024 7:09 AM PHOTOGRAPHIC AIDE Chris Suarez MD LAB - BLOOD ORDER MIRNA Final Result [facility] [address] Lab (1st floor, no room number) [address] * Magnesium (10/17/2024 6:53 AM PHOTOGRAPHIC AIDE) Magnesium 2.2 1.7 - 2.3 mg/dL 10/17/2024 7:32 AM PHOTOGRAPHIC AIDE RH LABORATORY Blood TOPOGRAPHY UNKNOWN / Unknown Venipuncture / Unknown 10/17/2024 6:53 AM PHOTOGRAPHIC AIDE 10/17/2024 7:09 AM PHOTOGRAPHIC AIDE Chris Suarez MD LAB - BLOOD ORDER MIRNA Final Result [facility] [address] Lab (1st floor, no room number) [place] [phone] * Creatinine (10/17/2024 6:53 AM PHOTOGRAPHIC AIDE) Creatinine 0.71 0.67 - 1.17 mg/dL 10/17/2024 7:32 AM PHOTOGRAPHIC AIDE LABORATORY GFR Estimate >90 >60 mL/min/1.7 3m2 10/17/2024 7:32 AM PHOTOGRAPHIC AIDE LABORATORY Comment:eGFR calculated usmi 2020 CKD-EPI equation. Blood TOPOGRAPHY UNKNOWN / Unknown Venipuncture / Unknown 10/17/2024 6:53 AM PHOTOGRAPHIC AIDE 10/17/2024 7:09 AM PHOTOGRAPHIC AIDE Bernardino Garcia MD LAB - BLOOD ORDERABLES Final Result Performing Organization Address City/[facility]/ZIP Co de Phone Number [facility] [address] Lab (1st floor, no room number) [place] [phone] * (ABNORMAL) Glucose by meter (10/17/2024 2:21 AM PHOTOGRAPHIC AIDE) GLUCOSE BY METER POCT 186(H) 70 - 99 mg/dL 10/17/2024 2:28 AM PHOTOGRAPHIC AIDE LABORATORY POC Comment:Dr/RN Notified Blood, Capillary BLOOD SPECIMEN / Unknown 10/17/2024 2:21 AM PHOTOGRAPHIC AIDE 10/17/2024 2:28 AM PHOTOGRAPHIC AIDE Arielle Martel DO LAB - BEAKER POCT Final Re sult LABORATORY [facility] [address] Lab (1st floor, no room number) [place] [phone] * (ABNORMAL) Glucose by meter (10/16/2024 9:42 PM PHOTOGRAPHIC AIDE) GLUCOSE BY METER POCT 292(H) 70 - 99 mg/dL 10/16/2024 9:49 PM PHOTOGRAPHIC AIDE LABORATORY POC Blood, Capillary BLOOD SPECIMEN / Unknown 10/16/2024 9:42 PM PHOTOGRAPHIC AIDE 10/16/2024 9:49 PM PHOTOGRAPHIC AIDE Result [facility] Arielle Martel DO LAB - BEAKER POCT Final Re sult LABORATORY [facility] [address] [facility] Lab (1st floor, no room number) [place] [phone] * (ABNORMAL) Glucose by meter (10/16/2024 5:37 PM PHOTOGRAPHIC AIDE) GLUCOSE BY METER POCT 284(H) 70 - 99 mg/dL 10/16/2024 5:44 PM PHOTOGRAPHIC AIDE LABORATORY POC Comment:Dr/RN Notified Blood, Capillary BLOOD SPECIMEN / Unknown 10/16/2024 5:37 PM PHOTOGRAPHIC AIDE 10/16/2024 5:44 PM PHOTOGRAPHIC AIDE Result [facility] Arielle Martel DO LAB - BEAKER POCT Final Re sult LABORATORY [facility] [address] Lab (1st floor, no room number) [place] [phone] * (ABNORMAL) Glucose by meter (10/16/2024 12:05 PM PHOTOGRAPHIC AIDE) GLUCOSE BY METER POCT 240(H) 70 - 99 mg/dL 10/16/2024 12:13 PM PHOTOGRAPHIC AIDE LABORATORY POC Blood, Capillary BLOOD SPECIMEN / Unknown 10/16/2024 12:05 PM PHOTOGRAPHIC AIDE 10/16/2024 12:13 PM PHOTOGRAPHIC AIDE Result [facility] Arielle Martel DO LAB - BEAKER POCT Final Re sult RH LABORATORY [facility] [address] [facility] Lab (1st floor, no room number) [place] [address] * US Chest Tube Insert (10/16/2024 11:46 AM PHOTOGRAPHIC AIDE) Anatomical Region Laterality Modality Chest Ultrasound 10/16/2024 11:4 6 AM PHOTOGRAPHIC AIDE Impressions 10/16/2024 12:07 PM PHOTOGRAPHIC AIDE IMPRESSION: Right-sided 10 Nigerian chest tube placement under ultrasound guidance. Narrative 10/16/2024 12:07 PM PHOTOGRAPHIC AIDE PROCEDURE: Ultrasound guided right sided 10 Nigerian chest tube placement DATE: 10/16/2024 MEDICATIONS: 1% [...] Lidocaine. Under direct ultrasound guidance, a 5 Nigerian Yueh needle was advanced into the pleural space via an intercostal approach. The catheter was advanced off of the needle. A 0.035 guidewire was advanced through the micropuncture sheath and the tract was serially dilated. A 10 Nigerian locking loop chest tube was placed with [...] 10/16/2024 PROCEDURE: Ultrasound guided right sided 10 Nigerian chest tube placement DATE: 10/16/2024 MEDICATIONS: 1% [...] 1% Lidocaine. Under direct ultrasoundguidance, a 5 Nigerian Yueh needle was advanced into the pleural [...] interventional radiology instable condition. IMPRESSION: Right-sided 10 Nigerian chest tube placement under ultrasound guidance. us Kayla Baca MD [facility] ORDERABLES Final Result * (ABNORMAL) Glucose by meter (10/16/2024 8:14 AM PHOTOGRAPHIC AIDE) GLUCOSE BY METER POCT 230(H) 70 - 99 mg/dL 10/16/2024 8:21 AM PHOTOGRAPHIC AIDE LABORATORY POC Blood, Capillary BLOOD SPECIMEN / Unknown 10/16/2024 8:14 AM PHOTOGRAPHIC AIDE 10/16/2024 8:21 AM PHOTOGRAPHIC AIDE Arielle Martel DO LAB - BEAKER POCT Final Re sult LABORATORY [facility] [address] Lab (1st floor, no room number) [place] [phone] [place] [address] * Phosphorus (10/16/2024 7:44 AM PHOTOGRAPHIC AIDE) Phosphorus 3.3 2.5 - 4.5 mg/dL 10/16/2024 8:19 AM PHOTOGRAPHIC AIDE LABORATORY Blood STRUCTURE OF LEFT HAND / Unknown Venipuncture / Unknown 10/16/2024 7:44 AM PHOTOGRAPHIC AIDE 10/16/2024 7:53 AM PHOTOGRAPHIC AIDE Bernardino Garcia MD LAB - BLOOD ORDERABLES Final Result Performing Organization Address [facility]/ZIP Co de Phone Number [facility] [address] Lab (1st floor, no room number) [place] [phone] [place] [address] * Magnesium (10/16/2024 7:44 AM PHOTOGRAPHIC AIDE) Magnesium 2.2 1.7 - 2.3 mg/dL 10/16/2024 8:19 AM PHOTOGRAPHIC AIDE LABORATORY Blood STRUCTURE OF LEFT HAND / Unknown Venipuncture / Unknown 10/16/2024 7:44 AM PHOTOGRAPHIC AIDE 10/16/2024 7:53 AM PHOTOGRAPHIC AIDE Bernardino Garcia MD LAB - BLOOD ORDERABLES Final Result Performing Organization Address City/[facility]/ZIP Co de Phone Number [facility] [address] Lab (1st floor, no room number) [address] * Creatinine (10/16/2024 7:44 AM PHOTOGRAPHIC AIDE) Creatinine 0.68 0.67 - 1.17 mg/dL 10/16/2024 8:19 AM PHOTOGRAPHIC AIDE LABORATORY GFR Estimate >90 >60 mL/min/1.7 3m2 10/16/2024 8:19 AM PHOTOGRAPHIC AIDE LABORATORY Comment:eGFR calculated usin 2020 CKD-EPI equation. Blood STRUCTURE OF LEFT HAND / Unknown Venipuncture / Unknown 10/16/2024 7:44 AM PHOTOGRAPHIC AIDE 10/16/2024 7:53 AM PHOTOGRAPHIC AIDE Bernardino Garcia MD LAB - BLOOD ORDERABLES Final Result [facility] [address] Lab (1st floor, no room number) [place] [address], [facility] * (ABNORMAL) Glucose by meter (10/16/2024 1:18 AM PHOTOGRAPHIC AIDE) GLUCOSE BY METER POCT 301(H) 70 - 99 mg/dL 10/16/2024 1:25 AM PHOTOGRAPHIC AIDE LABORATORY POC Blood, Capillary BLOOD SPECIMEN / Unknown 10/16/2024 1:18 AM PHOTOGRAPHIC AIDE 10/16/2024 1:25 AM PHOTOGRAPHIC AIDE Arielle Martel DO LAB - BEAKER POCT Final Re sult Performing Organization Address [facility]/ZIP Co de Phone Number [facility] [address] Lab (1st floor, no room number) [place] [address], [facility] * (ABNORMAL) Glucose by meter (10/15/2024 9:21 PM PHOTOGRAPHIC AIDE) GLUCOSE BY METER POCT 330(H) 70 - 99 mg/dL 10/15/2024 9:28 PM PHOTOGRAPHIC AIDE LABORATORY POC Blood, Capillary BLOOD SPECIMEN / Unknown 10/15/2024 9:21 PM PHOTOGRAPHIC AIDE 10/15/2024 9:28 PM PHOTOGRAPHIC AIDE Arielle Martel DO LAB - BEAKER POCT Final Re sult LABORATORY [facility] [address] Lab (1st floor, no room number) [place] [address], [facility] * (ABNORMAL) Glucose by meter (10/15/2024 6:09 PM PHOTOGRAPHIC AIDE) [facility] Signature GLUCOSE BY METER POCT 315(H) 70 - 99 mg/dL 10/15/2024 6:15 PM PHOTOGRAPHIC AIDE LABORATORY POC Blood, Capillary BLOOD SPECIMEN / Unknown 10/15/2024 6:09 PM PHOTOGRAPHIC AIDE 10/15/2024 6:15 PM PHOTOGRAPHIC AIDE us Arielle Martel DO LAB - BEAKER POCT Final Re sult LABORATORY [facility] Lab [address] Lab (1st floor, no room number) [place] [address] * CT Chest w/o Contrast (10/15/2024 3:37 PM PHOTOGRAPHIC AIDE) Anatomical Region Laterality Modality Chest, SUBRAD CT BODY, UMP CT CHEST, RAD CT Computed Tomography 10/15/2024 3:37 PM PHOTOGRAPHIC AIDE Impressions 10/15/2024 3:50 PM PHOTOGRAPHIC AIDE IMPRESSION: 1. Increased size of a moderate [...] the recent MRI. Narrative 10/15/2024 3:50 PM PHOTOGRAPHIC AIDE EXAM: CT CHEST W/O CONTRAST LOCATION: [facility] DATE: 10/15/2024 INDICATION: R pleural effusion COMPARISON: Chest x-ray yesterday and chest CT on 10/12/2024 TECHNIQUE: CT chest without IV contrast. Multiplanar reformats were obtained. Dose reduction techniques were used. CONTRAST: None. FINDINGS: LUNGS AND PLEURA: A [id number] sized partly loculated right pleural effusion predominantly [...] 10/15/2024 EXAM: CT CHEST W/O CONTRAST LOCATION: [facility] DATE: 10/15/2024 INDICATION: R pleural effusion COMPARISON: Chest x-ray yesterday and chest CT on 10/12/2024 TECHNIQUE: CT chest without IV contrast. Multiplanar reformats wereobtained. Dose reduction techniques were used. CONTRAST: None. FINDINGS: LUNGS AND PLEURA: A [id number] sized partly loculated right pleuraleffusion predominantly along [...] w/o & w Contrast (10/15/2024 3:25 PM PHOTOGRAPHIC AIDE) Anatomical Region Laterality Modality Head, SUBRAD MR NEURO, UMP MR NEURO, RAD MR Magnetic Resonance 10/15/2024 3:25 PM PHOTOGRAPHIC AIDE Impressions 10/17/2024 2:27 PM PHOTOGRAPHIC AIDE IMPRESSION: 1. Interval development of 1 cm linear focus of restricted diffusion posterior to the right frontal resection cavity. Differential considerations include acute ischemia, posttreatment change, or recurrence. Recommend continued radiographic follow-up. 2. Otherwise similar appearance of the right frontal resection cavity. Narrative 10/17/2024 2:27 PM PHOTOGRAPHIC AIDE EXAM: MR BRAIN W/O and W CONTRAST LOCATION: [facility] DATE: 10/15/2024 INDICATION: h o right [...] MR BRAIN W/O and W CONTRAST LOCATION: [facility] DATE: 10/15/2024 INDICATION: h o right [...] (ABNORMAL) Glucose by meter (10/15/2024 11:51 AM PHOTOGRAPHIC AIDE) GLUCOSE BY METER POCT 293(H) 70 - 99 mg/dL 10/15/2024 11:58 AM PHOTOGRAPHIC AIDE LABORATORY POC Comment:Dr/RN Notified Blood, Capillary BLOOD SPECIMEN / Unknown 10/15/2024 11:51 AM PHOTOGRAPHIC AIDE 10/15/2024 11:58 AM PHOTOGRAPHIC AIDE Arielle Martel DO LAB - BEAKER POCT Final Re sult LABORATORY [facility] [address] Lab (1st floor, no room number) [address] * (ABNORMAL) Glucose by meter (10/15/2024 8:02 AM PHOTOGRAPHIC AIDE) GLUCOSE BY METER POCT 250(H) 70 - 99 mg/dL 10/15/2024 8:10 AM PHOTOGRAPHIC AIDE LABORATORY POC Comment:Dr/RN Notified Blood, Capillary BLOOD SPECIMEN / Unknown 10/15/2024 8:02 AM PHOTOGRAPHIC AIDE 10/15/2024 8:10 AM PHOTOGRAPHIC AIDE Arielle Martel DO LAB - BEAKER POCT Final Re sult Performing Organization Address [facility]/ZIP Co de Phone Number LABORATORY [facility] [address] Lab (1st floor, no room number) [address] * (ABNORMAL) Glucose by meter (10/15/2024 6:40 AM PHOTOGRAPHIC AIDE) GLUCOSE BY METER POCT 229(H) 70 - 99 mg/dL 10/15/2024 6:47 AM PHOTOGRAPHIC AIDE LABORATORY POC Blood, Capillary BLOOD SPECIMEN / Unknown 10/15/2024 6:40 AM PHOTOGRAPHIC AIDE 10/15/2024 6:47 AM PHOTOGRAPHIC AIDE Arielle Delonte LAB - BEAKER POCT Final Re sult Performing Organization Address City/[facility]/ZIP Co de Phone Number LABORATORY [facility] [address] Lab (1st floor, no room number) [address] * (ABNORMAL) CBC with platelets and differential (10/15/2024 5:45 AM PHOTOGRAPHIC AIDE) WBC Count 10.7 4.0 - 11.0 10e3/uL 10/15/2024 5:53 AM PHOTOGRAPHIC AIDE LABORATORY RBC Count 4.26(L) 4.40 - 5.90 10e6/uL 10/15/2024 5:53 AM PHOTOGRAPHIC AIDE RH LABORATORY Hemoglobin 12.9(L) 13.3 - 17.7 g/dL 10/15/2024 5:53 AM PHOTOGRAPHIC AIDE RH LABORATORY Hematocrit 37.1(L) 40.0 - 53.0 % 10/15/2024 5:53 AM PHOTOGRAPHIC AIDE RH LABORATORY MCV 87 78 - 100 fL 10/15/2024 5:53 AM PHOTOGRAPHIC AIDE RH LABORATORY MCH 30.3 26.5 - 33.0 pg 10/15/2024 5:53 AM PHOTOGRAPHIC AIDE RH LABORATORY MCHC 34.8 31.5 - 36.5 g/dL 10/15/2024 5:53 AM PHOTOGRAPHIC AIDE RH LABORATORY RDW 12.1 10.0 - 15.0 % 10/15/2024 5:53 AM PHOTOGRAPHIC AIDE RH LABORATORY Platelet Count 240 150 - 450 10e3/uL 10/15/2024 5:53 AM PHOTOGRAPHIC AIDE RH LABORATORY % Neutrophils 79 % 10/15/2024 5:53 AM PHOTOGRAPHIC AIDE RH LABORATORY % Lymphocytes 8 % 10/15/2024 5:53 AM PHOTOGRAPHIC AIDE RH LABORATORY % Monocytes 11 % 10/15/2024 5:53 AM PHOTOGRAPHIC AIDE RH LABORATORY % Eosinophils 2 % 10/15/2024 5:53 AM PHOTOGRAPHIC AIDE RH LABORATORY % Basophils 0 % 10/15/2024 5:53 AM PHOTOGRAPHIC AIDE RH LABORATORY % Immature Granulocytes 0 % 10/15/2024 5:53 AM PHOTOGRAPHIC AIDE RH LABORATORY NRBCs per 100 WBC 0 <1 /100 025 5:53 AM PHOTOGRAPHIC AIDE [facility] LABORATORY Absolute Neutrophils 8.4(H) 1.6 - 8.3 10e3/uL 10/15/2024 5:53 AM PHOTOGRAPHIC AIDE RH LABORATORY Absolute Lymphocytes 0.8 0.8 - 5.3 10e3/uL 10/15/2024 5:53 AM PHOTOGRAPHIC AIDE RH LABORATORY Absolute Monocytes 1.2 0.0 - 1.3 10e3/uL 10/15/2024 5:53 AM PHOTOGRAPHIC AIDE RH LABORATORY Absolute Eosinophils 0.2 0.0 - 0.7 10e3/uL 10/15/2024 5:53 AM PHOTOGRAPHIC AIDE RH LABORATORY Absolute Basophils 0.0 0.0 - 0.2 10e3/uL 10/15/2024 5:53 AM PHOTOGRAPHIC AIDE RH LABORATORY Absolute Immature Granulocytes 0.0 <=0.4 10e3/uL 10/15/2024 5:53 AM PHOTOGRAPHIC AIDE RH LABORATORY Absolute NRBCs 0.0 10e3/uL 10/15/2024 5:53 AM [facility] LABORATORY Blood STRUCTURE OF LEFT HAND / Unknown Venipuncture / Unknown 10/15/2024 5:45 AM PHOTOGRAPHIC AIDE 10/15/2024 5:51 AM PHOTOGRAPHIC AIDE Ortiz Chew MD LAB - BLOOD ORDERABLES Final Result LABORATORY [facility] Lab [address] Lab (1st floor, no room number) [place] [address], [facility] * (ABNORMAL) Basic metabolic panel (10/15/2024 5:45 AM PHOTOGRAPHIC AIDE) Sodium 131(L) 135 - 145 mmol/L 10/15/2024 6:11 AM [facility] LABORATORY Potassium 4.0 3.4 - 5.3 mmol/L 10/15/2024 6:11 AM [facility] LABORATORY Chloride 95(L) 98 - 107 mmol/L 10/15/2024 6:11 AM [facility] LABORATORY Carbon Dioxide (CO2) 23 22 - 29 mmol/L 10/15/2024 6:11 AM [facility] LABORATORY Anion Gap 13 7 - 15 mmol/L 10/15/2024 6:11 AM [facility] LABORATORY Urea Nitrogen 27.6(H) 8.0 - 23.0 mg/dL 10/15/2024 6:11 AM [facility] LABORATORY Creatinine 0.89 0.67 - 1.17 mg/dL 10/15/2024 6:11 AM [facility] LABORATORY GFR Estimate >90 >60 mL/min/1.7 3m2 10/15/2024 6:11 AM [facility] LABORATORY Comment:eGFR calculated usin 2020 CKD-EPI equation. Calcium 8.6(L) 8.8 - 10.4 mg/dL 10/15/2024 6:11 AM [facility] LABORATORY Glucose 260(H) 70 - 99 mg/dL 10/15/2024 6:11 AM [facility] LABORATORY Blood STRUCTURE OF LEFT HAND / Unknown Venipuncture / Unknown 10/15/2024 5:45 AM PHOTOGRAPHIC AIDE 10/15/2024 5:51 AM PHOTOGRAPHIC AIDE Ortiz Chew MD LAB - BLOOD ORDERABLES Final Result [facility] [address] Lab (1st floor, no room number) [address] * Magnesium (10/15/2024 5:45 AM PHOTOGRAPHIC AIDE) Magnesium 2.2 1.7 - 2.3 mg/dL 10/15/2024 6:11 AM PHOTOGRAPHIC AIDE RH LABORATORY Blood STRUCTURE OF LEFT HAND / Unknown Venipuncture / Unknown 10/15/2024 5:45 AM PHOTOGRAPHIC AIDE 10/15/2024 5:51 AM PHOTOGRAPHIC AIDE Ortiz Chew MD LAB - BLOOD ORDERABLES Final Result Performing Organization Address [facility]/ZIP Co de Phone Number [facility] Lab [address] Lab (1st floor, no room number) [address] * Phosphorus (10/15/2024 5:45 AM PHOTOGRAPHIC AIDE) Phosphorus 3.3 2.5 - 4.5 mg/dL 10/15/2024 6:11 AM PHOTOGRAPHIC AIDE RH LABORATORY Blood STRUCTURE OF LEFT HAND / Unknown Venipuncture / Unknown 10/15/2024 5:45 AM PHOTOGRAPHIC AIDE 10/15/2024 5:51 AM PHOTOGRAPHIC AIDE Ortiz Chew MD LAB - BLOOD ORDERABLES Final Result Performing Organization Address City/[facility]/ZIP Co de Phone Number [facility] [address] Lab (1st floor, no room number) [address] * Lactic Acid Whole Blood w/ 1x repeat in 2 hrs when >2 (10/15/2024 2:30 AM PHOTOGRAPHIC AIDE) Lactic Acid, Initial 1.5 0.7 - 2.0 mmol/L 10/15/2024 2:39 AM PHOTOGRAPHIC AIDE [facility]AT[facility] Blood STRUCTURE OF LEFT HAND / Unknown Venipuncture / Unknown 10/15/2024 2:30 AM PHOTOGRAPHIC AIDE 10/15/2024 2:37 AM PHOTOGRAPHIC AIDE Result [facility] Ortiz Chew MD LAB - BLOOD ORDERABLES Final Result LABORATORY [facility] [address] Lab (1st floor, no room number) [place] [id number] * (ABNORMAL) Glucose by meter (10/15/2024 2:17 AM PHOTOGRAPHIC AIDE) GLUCOSE BY METER POCT 358(H) 70 - 99 mg/dL 10/15/2024 2:24 AM PHOTOGRAPHIC AIDE LABORATORY POC Blood, Capillary BLOOD SPECIMEN / Unknown 10/15/2024 2:17 AM PHOTOGRAPHIC AIDE 10/15/2024 2:24 AM PHOTOGRAPHIC AIDE Result [facility] Arielle Martel DO LAB - BEAKER POCT Final Re sult LABORATORY POC [facility] [address] Lab (1st floor, no room number) [place] [id number] * EKG 12-lead, tracing only (10/15/2024 1:33 AM PHOTOGRAPHIC AIDE) Systolic Blood Pressure mmHg RADIOLOGY RESULTS Diastolic Blood Pressure mmHg RADIOLOGY RESULTS Ventricular Rate 146 BPM RAD IOLOGY RESULTS Atrial Rate 192 BPM RADIOLOG Y RESULTS [place] Interval ms RADIOLOG Y RESULTS QRS Duration 108 ms RADIOLO GY RESULTS QT 318 ms RADIOLOGY RESULTS QTc 495 ms RADIOLOGY RESULTS P [place] degrees RADIOLOGY RESULTS R AXIS 9 degrees RADIOLOGY RESULTS T [place] 79 degrees RADIOLOGY RESULTS Interpretation ECG Atrial fibrillation with rapid ventricular response Incomplete right bundle branch block ST depression, consider subendocardial injury Abnormal ECG Confirmed by CAROLYNE BURTON ([id number]) on 10/15/2024 3:06:01 PM RADIOLOGY RESULTS 10/15/2024 1:33 AM PHOTOGRAPHIC AIDE 10/15/2024 3:06 PM PHOTOGRAPHIC AIDE Horacio Galan MD ECG ORDERABLES Edited R esult - Final Performing Organization Address City/[facility]/ZIP Co de Phone Number RADIOLOGY RESULTS * (ABNORMAL) Glucose by meter (10/14/2024 10:05 PM PHOTOGRAPHIC AIDE) GLUCOSE BY METER POCT 321(H) 70 - 99 mg/dL 10/14/2024 10:11 PM PHOTOGRAPHIC AIDE LABORATORY POC Blood, Capillary BLOOD SPECIMEN / Unknown 10/14/2024 10:05 PM PHOTOGRAPHIC AIDE 10/14/2024 10:11 PM PHOTOGRAPHIC AIDE Arielle Martel DO LAB - BEAKER POCT Final Re sult Performing Organization Address [facility]/ZIP Co de Phone Number LABORATORY [facility] Lab [address] Lab (1st floor, no room number) [place] [phone] [place] [address] * (ABNORMAL) Glucose by meter (10/14/2024 6:11 PM PHOTOGRAPHIC AIDE) GLUCOSE BY METER POCT 269(H) 70 - 99 mg/dL 10/14/2024 6:18 PM PHOTOGRAPHIC AIDE LABORATORY POC Blood, Capillary BLOOD SPECIMEN / Unknown 10/14/2024 6:11 PM PHOTOGRAPHIC AIDE 10/14/2024 6:18 PM PHOTOGRAPHIC AIDE Arielle Martel DO LAB - BEAKER POCT Final Re sult Performing Organization Address [facility]/ZIP Co de Phone Number LABORATORY [facility] Lab [address] Lab (1st floor, no room number) [place] [phone] [place] [address] * MR Liver wo & w Contrast (10/14/2024 4:17 PM PHOTOGRAPHIC AIDE) Anatomical Region Laterality Modality Abdomen/Pelvis, SUBRAD MR BODY, UMP MR BODY, RAD MR Magnetic Resonance 10/14/2024 4:17 PM PHOTOGRAPHIC AIDE Impressions 10/14/2024 4:33 PM PHOTOGRAPHIC AIDE IMPRESSION: 1. Multifocal indeterminate lesions in the liver. These do not have T2 characteristics of simple cysts. Differential includes metastatic disease, among other considerations. Recommend biopsy of the largest lesion in the posterior right lobe of the liver. 2. Abnormal findings requiring follow-up. Narrative 10/14/2024 4:33 PM PHOTOGRAPHIC AIDE EXAM: MR LIVER W/O and W CONTRAST LOCATION: [facility] DATE: 10/14/2024 INDICATION: lesions seen on [...] MR LIVER W/O and W CONTRAST LOCATION: [facility] DATE: 10/14/2024 INDICATION: lesions seen on [...] in the liver. These do not have [id number] of simple cysts. Differential includes metastatic disease,among other considerations. Recommend biopsy of the largest lesion in theposterior right lobe of the liver. 2. Abnormal findings requiring follow-up. us Ortiz Chew MD [facility] MRI ORDERABLES Final Resu lt * MRSA MSSA PCR, Nasal Swab (10/14/2024 1:30 PM PHOTOGRAPHIC AIDE) MRSA Target DNA Negative Negative 10/14/2024 5:06 PM PHOTOGRAPHIC AIDE [facility] SA Target DNA Positive 10/14/2024 5:06 PM PHOTOGRAPHIC AIDE [facility] Swab BOTH ANTERIOR NARES / Unknown Non-blood Collection / Unknown 10/14/2024 1:30 PM PHOTOGRAPHIC AIDE 10/14/2024 1:36 PM PHOTOGRAPHIC AIDE Narrative [facility] - 10/14/2024 5:06 PM PHOTOGRAPHIC AIDE The [employer] Xpert SA Nasal Complete assay performed in the [employer] Dx System is a qualitative in vitro [...] ORDERABLE S Final Result [facility] Inf. Diseases Diag. Lab [address] [facility], [address] [place] [address], [facility] * (ABNORMAL) Glucose by meter (10/14/2024 11:38 AM PHOTOGRAPHIC AIDE) [facility] GLUCOSE BY METER POCT 229(H) 70 - 99 mg/dL 10/14/2024 11:45 AM PHOTOGRAPHIC AIDE LABORATORY POC Blood, Capillary BLOOD SPECIMEN / Unknown 10/14/2024 11:38 AM PHOTOGRAPHIC AIDE 10/14/2024 11:45 AM PHOTOGRAPHIC AIDE Arielle NG - CARLOS ALBERTOAKER POCT Final Re sult LABORATORY POC [facility] Lab [address] [facility] Lab (1st floor, no room number) [place] [address], [facility] * US Thoracentesis (10/14/2024 11:13 AM PHOTOGRAPHIC AIDE) Anatomical Region Laterality Modality Chest Ultrasound 10/14/2024 11:1 3 AM PHOTOGRAPHIC AIDE Impressions 10/14/2024 3:20 PM PHOTOGRAPHIC AIDE IMPRESSION: Status post right ultrasound-guided thoracentesis. Reference CPT Code: 56176 Narrative 10/14/2024 3:20 PM PHOTOGRAPHIC AIDE EXAM: 1. RIGHT THORACENTESIS 2. ULTRASOUND GUIDANCE LOCATION: [facility] DATE: 10/14/2024 INDICATION: Pleural effusion. PROCEDURE: Informed consent obtained. Time out performed. The chest was prepped and draped in sterile fashion. 10 mL of 1 % lidocaine was infused into the local soft tissues. Under direct ultrasound guidance, a 5 Nigerian catheter system was placed into the pleural effusion. 0.1 liters of clear yellow fluid were removed and sent to lab, if requested. Patient tolerated procedure well. Ultrasound imaging was obtained and placed in the patient's permanent medical record. Procedure Note Kojo Detn MD - 10/14/2024 EXAM: 1. RIGHT THORACENTESIS 2. ULTRASOUND GUIDANCE LOCATION: [facility] DATE: 10/14/2024 INDICATION: Pleural effusion. PROCEDURE: [...] post right ultrasound-guided thoracentesis. Reference CPT Code: 07518 us Ortiz Chew MD [facility] US ORDERABLES Final Resul t * Differential Body Fluid (10/14/2024 11:08 AM PHOTOGRAPHIC AIDE) % Neutrophils 97 % YARIEL 10/14/2024 1:41 PM PHOTOGRAPHIC AIDE [facility] % Lymphocytes 0 % YARIEL 10/14/2024 1:41 PM PHOTOGRAPHIC AIDE [facility] % Monocyte/Macroph ages 3 % YARIEL 10/14/2024 1:41 PM PHOTOGRAPHIC AIDE [facility] Pleural fluid RIGHT LUNG STRUCTURE / Unknown Non-blood Collection / Unknown 10/14/2024 11:08 AM PHOTOGRAPHIC AIDE 10/14/2024 11:20 AM PHOTOGRAPHIC AIDE Narrative [facility] - 10/14/2024 1:41 PM PHOTOGRAPHIC AIDE No reference ranges have been established. This result should be interpreted in the context of the patient's clinical condition and compared to simultaneous measurement in the patient's blood. Ortiz Chew MD LAB - BODY FLUIDS ORDERABLES Final Result Performing Organization Address City/[facility]/ZIP Co de Phone Number [facility] Lab [address] Lab (1st floor, no room number) [place] [address] * (ABNORMAL) Cell Count Body Fluid (10/14/2024 11:08 AM PHOTOGRAPHIC AIDE) Color Yellow Colorless, Yellow YARIEL 10/14/2024 1:40 PM PHOTOGRAPHIC AIDE LABORATORY Clarity Turbid(A) Clear YARIEL 10/14/2024 1:40 PM PHOTOGRAPHIC AIDE LABORATORY Cell Count Fluid Source Pleural Cavity, Right 10/14/2024 1:40 PM PHOTOGRAPHIC AIDE LABORATORY Total Nucleated Cells 12,185 /uL YARIEL 10/14/2024 1:40 PM PHOTOGRAPHIC AIDE LABORATORY Pleural fluid RIGHT LUNG STRUCTURE / Unknown Non-blood Collection / Unknown 10/14/2024 11:08 AM PHOTOGRAPHIC AIDE 10/14/2024 11:20 AM PHOTOGRAPHIC AIDE Narrative [facility] - 10/14/2024 1:40 PM PHOTOGRAPHIC AIDE No reference ranges have been established. This result should be interpreted in the context of the patient's clinical condition and compared to simultaneous measurement in the patient's blood. Small clot present, count may be inaccurate. us Ortiz Chew MD LAB - BODY FLUIDS ORDERABLES Final Result Performing Organization Address City/[facility]/ZIP Co de Phone Number [facility] Lab [address] Lab (1st floor, no room number) [place] [address] * Cytology, non-gynecologic (10/14/2024 11:08 AM PHOTOGRAPHIC AIDE) Final Diagnosis Specimen A. Pleural fluid for [...] eosin stained cell block. 10/16/2024 3:[address] [facility] Microscopic Description Microscopic examination is performed with findings supportive of the diagnosis as noted. 10/16/2024 3:[address] [facility] Performing Labs The technical component of this testing was completed at [facility]. Stain controls for all stains resulted within this report have been reviewed and show appropriate reactivity. 10/16/2024 3:[address] [facility] Pleural fluid STRUCTURE OF RIGHT PLEURAL CAVITY / Unknown Non-blood Collection / Unknown 10/14/2024 11:08 AM PHOTOGRAPHIC AIDE 10/14/2024 11:19 AM [facility] Comment:Collect pleural flui d when Thoracentesis procedure performed Specimen must be collected in a Sterile - Plastic Leak proof lab container. Ortiz Chew MD LAB - BEAKER AP Final Result LABORATORY [facility] Acute Care Lab [address] 1st floor, [address] [place] [address], [place] [phone] SPECIALTY LABS Specialty Lab [address] [facility][[address]], [address] [place] [address], [facility] * Protein fluid (10/14/2024 11:08 AM PHOTOGRAPHIC AIDE) Protein Fluid Source Pleural Cavity, Right 10/14/2024 12:01 PM [facility]AT[facility] Protein Total Fluid 3.0 g/dL 10/14/2024 12:01 PM [facility] LABORATORY Other STRUCTURE OF RIGHT PLEURAL CAVITY / Unknown Non-blood Collection / Unknown 10/14/2024 11:08 AM PHOTOGRAPHIC AIDE 10/14/2024 11:20 AM PHOTOGRAPHIC AIDE Narrative [facility] - 10/14/2024 12:01 PM PHOTOGRAPHIC AIDE No reference ranges have been established. This [...] FLUIDS ORDERABLES Final Result Performing Organization Address City/[facility]/ZIP Co de Phone Number [facility] Lab [address] Lab (1st floor, no room number) [place] [phone] * Lactate dehydrogenase fluid (10/14/2024 11:08 AM PHOTOGRAPHIC AIDE) LD Fluid Source Pleural Cavity, Right 10/14/2024 12:01 PM PHOTOGRAPHIC AIDE LABORATORY Lactate dehydrogenase fluid 904 U/L 10/14/2024 12:01 PM PHOTOGRAPHIC AIDE LABORATORY Other STRUCTURE OF RIGHT PLEURAL CAVITY / Unknown Non-blood Collection / Unknown 10/14/2024 11:08 AM PHOTOGRAPHIC AIDE 10/14/2024 11:20 AM PHOTOGRAPHIC AIDE Narrative [facility] - 10/14/2024 12:01 PM PHOTOGRAPHIC AIDE No reference ranges have been established. This [...] FLUIDS ORDERABLES Final Result Performing Organization Address City/[facility]/ZIP Co de Phone Number [facility] Lab [address] Lab (1st floor, no room number) [place] [address] * Glucose fluid (10/14/2024 11:08 AM PHOTOGRAPHIC AIDE) Glucose Fluid Source Pleural Cavity, Right 10/14/2024 12:01 PM PHOTOGRAPHIC AIDE [facility] Glucose fluid 205 mg/dL 10/14/2024 12:01 PM PHOTOGRAPHIC AIDE [facility] Other STRUCTURE OF RIGHT PLEURAL CAVITY / Unknown Non-blood Collection / Unknown 10/14/2024 11:08 AM PHOTOGRAPHIC AIDE 10/14/2024 11:20 AM PHOTOGRAPHIC AIDE Narrative [facility] - 10/14/2024 12:01 PM PHOTOGRAPHIC AIDE No reference ranges have been established. This [...] BODY FLUIDS ORDERABLES Final Result [facility] LABORATORY [facility] Lab [address] [facility] Lab (1st floor, no room number) [place] [address], [facility] * Pleural fluid Aerobic Bacterial Culture Routine With Gram Stain (10/14/2024 11:08 AM PHOTOGRAPHIC AIDE) Culture No Growth 10/19/2024 7:17 AM PHOTOGRAPHIC AIDE [facility] Gram Stain Result No organisms seen 10/19/2024 7:17 AM PHOTOGRAPHIC AIDE [facility] Gram Stain Result 4+ WBC seen 10/19/2024 7:17 AM PHOTOGRAPHIC AIDE [facility] Pleural fluid RIGHT LUNG STRUCTURE / Unknown Non-blood Collection / Unknown 10/14/2024 11:08 AM PHOTOGRAPHIC AIDE 10/14/2024 11:35 AM PHOTOGRAPHIC AIDE Narrative [facility] - 10/19/2024 7:17 AM PHOTOGRAPHIC AIDE Gram Stain quantification of host cells and microbiological organisms was done on a cytocentrifuged preparation. Ortiz Chew MD LAB - MICRO GENERAL ORDERABLE S Final Result [facility] Inf. Diseases Diag. Lab [address] [facility], [address] [place] [address], [facility] * (ABNORMAL) Hepatic panel (10/14/2024 10:24 AM PHOTOGRAPHIC AIDE) Protein Total 5.8(L) 6.4 - 8.3 g/dL 10/14/2024 12:49 PM PHOTOGRAPHIC AIDE [facility] Albumin 2.9(L) 3.5 - 5.2 g/dL 10/14/2024 12:49 PM PHOTOGRAPHIC AIDE [facility] Bilirubin Total 0.4 <=1.2 mg/dL 10/14/2024 12:49 PM PHOTOGRAPHIC AIDE [facility] Alkaline Phosphatase 108 40 - 150 U/L 10/14/2024 12:49 PM PHOTOGRAPHIC AIDE [facility] AST 17 0 - 45 U/L 10/14/2024 12:49 PM PHOTOGRAPHIC AIDE [facility] ALT 20 0 - 70 U/L 10/14/2024 12:49 PM PHOTOGRAPHIC AIDE [facility] Bilirubin Direct 0.18 0.00 - 0.30 mg/dL 10/14/2024 12:49 PM PHOTOGRAPHIC AIDE LABORATORY Blood STRUCTURE OF LEFT HAND / Unknown Venipuncture / Unknown 10/14/2024 10:24 AM PHOTOGRAPHIC AIDE 10/14/2024 10:34 AM PHOTOGRAPHIC AIDE Ortiz Chew MD LAB - BLOOD ORDERABLES Final Result [facility] Lab [address] Lab (1st floor, no room number) [place] [phone] [place] [address] * (ABNORMAL) Protein total (10/14/2024 10:24 AM PHOTOGRAPHIC AIDE) Protein Total 5.8(L) 6.4 - 8.3 g/dL 10/14/2024 11:08 AM PHOTOGRAPHIC AIDE LABORATORY Blood STRUCTURE OF LEFT HAND / Unknown Venipuncture / Unknown 10/14/2024 10:24 AM PHOTOGRAPHIC AIDE 10/14/2024 10:34 AM PHOTOGRAPHIC AIDE Ortiz Chew MD LAB - BLOOD ORDERABLES Final Result [facility] [address] [employer] Lab (1st floor, no room number) [place] [phone] * Lactate Dehydrogenase (10/14/2024 10:24 AM PHOTOGRAPHIC AIDE) Lactate Dehydrogenase 165 0 - 250 U/L 10/14/2024 11:08 AM PHOTOGRAPHIC AIDE LABORATORY Blood STRUCTURE OF LEFT HAND / Unknown Venipuncture / Unknown 10/14/2024 10:24 AM PHOTOGRAPHIC AIDE 10/14/2024 10:34 AM PHOTOGRAPHIC AIDE Ortiz Chew MD LAB - BLOOD ORDERABLES Final Result LABORATORY [facility] Care Lab [address] Lab (1st floor, no room number) [place] [address], [facility] * (ABNORMAL) Glucose by meter (10/14/2024 8:16 AM PHOTOGRAPHIC AIDE) GLUCOSE BY METER POCT 293(H) 70 - 99 mg/dL 10/15/2024 6:01 PM PHOTOGRAPHIC AIDE LABORATORY POC Blood, Capillary BLOOD SPECIMEN / Unknown 10/14/2024 8:16 AM PHOTOGRAPHIC AIDE 10/15/2024 6:01 PM PHOTOGRAPHIC AIDE Arielle Martel DO LAB - BEAKER POCT Final Re sult LABORATORY POC [facility] Care Lab [address] Lab (1st floor, no room number) [place] [phone], [facility] * (ABNORMAL) CBC with platelets and differential (10/14/2024 6:06 AM PHOTOGRAPHIC AIDE) WBC Count 13.5(H) 4.0 - 11.0 10e3/uL 10/14/2024 6:18 AM PHOTOGRAPHIC AIDE [facility] RBC Count 4.42 4.40 - 5.90 10e6/uL 10/14/2024 6:18 AM PHOTOGRAPHIC AIDE [facility] Hemoglobin 13.4 13.3 - 17.7 g/dL 10/14/2024 6:18 AM PHOTOGRAPHIC AIDE [facility] Hematocrit 38.2(L) 40.0 - 53.0 % 10/14/2024 6:18 AM PHOTOGRAPHIC AIDE [facility] MCV 86 78 - 100 fL 10/14/2024 6:18 AM [facility] LAB[facility]ATORY MCH 30.3 26.5 - 33.0 pg 10/14/2024 6:18 AM [facility] LAB[facility]ORY MCHC 35.1 31.5 - 36.5 g/dL 10/14/2024 6:18 AM [facility] RDW 11.8 10.0 - 15.0 % 10/14/2024 6:18 AM [facility] Platelet Count 196 150 - 450 10e3/uL 10/14/2024 6:18 AM [facility]ATORY % Neutrophils 84 % 10/14/2024 6:18 AM [facility]ORY % Lymphocytes 7 % 10/14/2024 6:18 AM [facility] % Monocytes 8 % 10/14/2024 6:18 AM [facility] % Eosinophils 1 % 10/14/2024 6:18 AM [facility] % Basophils 0 % 10/14/2024 6:18 AM [facility] % Immature Granulocytes 0 % 10/14/2024 6:18 AM [facility] LAB[facility]ATORY NRBCs per 100 WBC 0 <1 /100 025 6:18 AM [facility] LABORATORY Absolute Neutrophils 11.4(H) 1.6 - 8.3 10e3/uL 10/14/2024 6:18 AM [facility] LAB[facility]ATORY Absolute Lymphocytes 0.9 0.8 - 5.3 10e3/uL 10/14/2024 6:18 AM [facility] Absolute Monocytes 1.0 0.0 - 1.3 10e3/uL 10/14/2024 6:18 AM [facility] Absolute Eosinophils 0.1 0.0 - 0.7 10e3/uL 10/14/2024 6:18 AM [facility] Absolute Basophils 0.0 0.0 - 0.2 10e3/uL 10/14/2024 6:18 AM [facility] Absolute Immature Granulocytes 0.1 <=0.4 10e3/uL 10/14/2024 6:18 AM [facility] LAB[facility] Absolute NRBCs 0.0 10e3/uL 10/14/2024 6:18 AM [facility]ORY Blood STRUCTURE OF LEFT HAND / Unknown Venipuncture / Unknown 10/14/2024 6:06 AM PHOTOGRAPHIC AIDE 10/14/2024 6:15 AM PHOTOGRAPHIC AIDE Tiarra Smalls PA-C LAB - BLOOD ORDERABLES F inal Result LABORATORY [facility] Lab [address] Lab (1st floor, no room number) [place] [address], [facility] * (ABNORMAL) Basic metabolic panel (10/14/2024 6:06 AM PHOTOGRAPHIC AIDE) Sodium 129(L) 135 - 145 mmol/L 10/14/2024 6:58 AM [facility] Potassium 4.8 3.4 - 5.3 mmol/L 10/14/2024 6:58 AM [facility] Chloride 92(L) 98 - 107 mmol/L 10/14/2024 6:58 AM [facility] Carbon Dioxide (CO2) 19(L) 22 - 29 mmol/L 10/14/2024 6:58 AM [facility] Anion Gap 18(H) 7 - 15 mmol/L 10/14/2024 6:58 AM [facility] Urea Nitrogen 30.8(H) 8.0 - 23.0 mg/dL 10/14/2024 6:58 AM [facility] Creatinine 0.93 0.67 - 1.17 mg/dL 10/14/2024 6:58 AM [facility] GFR Estimate >90 >60 mL/min/1.7 3m2 10/14/2024 6:58 AM [facility] Comment:eGFR calculated usin 2020 CKD-EPI equation. Calcium 9.0 8.8 - 10.4 mg/dL 10/14/2024 6:58 AM [facility]ORY Glucose 283(H) 70 - 99 mg/dL 10/14/2024 6:58 AM [facility] Blood STRUCTURE OF LEFT HAND / Unknown Venipuncture / Unknown 10/14/2024 6:06 AM PHOTOGRAPHIC AIDE 10/14/2024 6:15 AM [facility] Tiarra Smalls PA-C LAB - BLOOD ORDERABLES F inal Result LABORATORY [facility] Acute Care Lab [address] Lab (1st floor, no room number) [address] * (ABNORMAL) Magnesium (10/14/2024 6:06 AM PHOTOGRAPHIC AIDE) Magnesium 2.4(H) 1.7 - 2.3 mg/dL 10/14/2024 6:55 AM PHOTOGRAPHIC AIDE LABORATORY Blood STRUCTURE OF LEFT HAND / Unknown Venipuncture / Unknown 10/14/2024 6:06 AM PHOTOGRAPHIC AIDE 10/14/2024 6:15 AM PHOTOGRAPHIC AIDE Result [facility] Tiarra TIJERINA-Kingsley LAB - BLOOD ORDERABLES F inal Result [facility] Care Lab [address] Lab (1st floor, no room number) [address] * Phosphorus (10/14/2024 6:06 AM PHOTOGRAPHIC AIDE) Phosphorus 3.6 2.5 - 4.5 mg/dL 10/14/2024 6:55 AM PHOTOGRAPHIC AIDE LABORATORY Blood STRUCTURE OF LEFT HAND / Unknown Venipuncture / Unknown 10/14/2024 6:06 AM PHOTOGRAPHIC AIDE 10/14/2024 6:15 AM PHOTOGRAPHIC AIDE Result [facility] Tiarra Smalls PA-C LAB - BLOOD ORDERABLES F inal Result [facility] Lab [address] Lab (1st floor, no room number) [address] * (ABNORMAL) Glucose by meter (10/14/2024 5:56 AM PHOTOGRAPHIC AIDE) GLUCOSE BY METER POCT 280(H) 70 - 99 mg/dL 10/14/2024 6:03 AM PHOTOGRAPHIC AIDE LABORATORY POC Blood, Capillary BLOOD SPECIMEN / Unknown 10/14/2024 5:56 AM PHOTOGRAPHIC AIDE 10/14/2024 6:03 AM PHOTOGRAPHIC AIDE Arielle Martel DO LAB - BEAKER POCT Final Re sult RH LABORATORY [facility] Acute Care Lab [address] [facility] Lab (1st floor, no room number) [place] [address], [facility] * XR Chest Port 1 View (10/14/2024 3:39 AM PHOTOGRAPHIC AIDE) Anatomical Region Laterality Modality Chest Digital Radiogra phy 10/14/2024 3:39 AM PHOTOGRAPHIC AIDE Impressions 10/14/2024 3:48 AM PHOTOGRAPHIC AIDE IMPRESSION: Enlarging now moderate right pleural effusion. Bibasilar patchy consolidations right greater than left, similar and again favoring multifocal pneumonia. Prior median sternotomy and cardiac valvular prosthesis. Stable enlarged heart. A component of pulmonary vascular congestion/interstitial edema may also be present. No pneumothorax. No acute osseous abnormality. Narrative 10/14/2024 3:48 AM PHOTOGRAPHIC AIDE EXAM: XR CHEST PORT 1 VIEW LOCATION: [facility] DATE: 10/14/2024 INDICATION: worsening hypoxia. previous xray history concerning for aspiration COMPARISON: PE chest CT with abdomen/pelvis with contrast 10/12/2024 Procedure Note Brett Mathis MD - 10/14/2024 EXAM: XR CHEST PORT 1 VIEW LOCATION: [facility] DATE: 10/14/2024 INDICATION: worsening hypoxia. previous xray [...] (ABNORMAL) Glucose by meter (10/14/2024 2:10 AM PHOTOGRAPHIC AIDE) GLUCOSE BY METER POCT 323(H) 70 - 99 mg/dL 10/14/2024 2:17 AM PHOTOGRAPHIC AIDE LABORATORY POC Blood, Capillary BLOOD SPECIMEN / Unknown 10/14/2024 2:10 AM PHOTOGRAPHIC AIDE 10/14/2024 2:17 AM PHOTOGRAPHIC AIDE Arielleemile Martel LAB - BEAKER POCT Final Re sult LABORATORY [facility] Lab [address] Lab (1st floor, no room number) [place] [address], [facility] * (ABNORMAL) Glucose by meter (10/14/2024 2:05 AM PHOTOGRAPHIC AIDE) GLUCOSE BY METER POCT 339(H) 70 - 99 mg/dL 10/14/2024 2:11 AM PHOTOGRAPHIC AIDE LABORATORY POC Blood, Capillary BLOOD SPECIMEN / Unknown 10/14/2024 2:05 AM PHOTOGRAPHIC AIDE 10/14/2024 2:11 AM PHOTOGRAPHIC AIDE Arielleemile Martel DO LAB - BEAKER POCT Final Re sult Performing Organization Address [facility]/ZIP Co de Phone Number LABORATORY [facility] Lab [address] Lab (1st floor, no room number) [place] [address], [facility] * (ABNORMAL) Glucose by meter (10/13/2024 11:56 PM PHOTOGRAPHIC AIDE) GLUCOSE BY METER POCT 349(H) 70 - 99 mg/dL 10/14/2024 12:02 AM PHOTOGRAPHIC AIDE LABORATORY POC Blood, Capillary BLOOD SPECIMEN / Unknown 10/13/2024 11:56 PM PHOTOGRAPHIC AIDE 10/14/2024 12:02 AM PHOTOGRAPHIC AIDE Arielle Estevanlatoyaabhijeet LAB - BEAKER POCT Final Re sult LABORATORY [facility] Lab [address] Lab (1st floor, no room number) [place] [address], [facility] * (ABNORMAL) Glucose by meter (10/13/2024 8:47 PM PHOTOGRAPHIC AIDE) GLUCOSE BY METER POCT 377(H) 70 - 99 mg/dL 10/13/2024 9:24 PM PHOTOGRAPHIC AIDE LABORATORY POC Blood, Capillary BLOOD SPECIMEN / Unknown 10/13/2024 8:47 PM PHOTOGRAPHIC AIDE 10/13/2024 9:24 PM PHOTOGRAPHIC AIDE Arielle Martel DO LAB - BEAKER POCT Final Re sult Performing Organization Address City/[facility]/ZIP Co de Phone Number LABORATORY [facility] Lab [address] [employer] Lab (1st floor, no room number) [place] [address] * (ABNORMAL) Sodium (10/13/2024 7:55 PM PHOTOGRAPHIC AIDE) Sodium 126(L) 135 - 145 mmol/L 10/13/2024 8:30 PM PHOTOGRAPHIC AIDE LABORATORY Blood STRUCTURE OF LEFT HAND / Unknown Venipuncture / Unknown 10/13/2024 7:55 PM PHOTOGRAPHIC AIDE 10/13/2024 8:03 PM PHOTOGRAPHIC AIDE Tiarra Smalls PA-C LAB - BLOOD ORDERABLES F inal Result Performing Organization Address [facility] de Phone Number [facility] Lab [address] Lab (1st floor, no room number) [place] [address] * Sodium random urine (10/13/2024 6:45 PM PHOTOGRAPHIC AIDE) Sodium Urine mmol/L <20 mmol/L 10/13/2024 7:29 PM PHOTOGRAPHIC AIDE LABORATORY Comment:The reference ranges have not been established in urine sodium. The results should be integrated into the clinical context for interpretation. Urine MID-STREAM URINE SPECIMEN / Unknown Non-blood Collection / Unknown 10/13/2024 6:45 PM PHOTOGRAPHIC AIDE 10/13/2024 6:52 PM PHOTOGRAPHIC AIDE Tiarra TIJERINA-C LAB - URINE ORDERABLES F inal Result LABORATORY [facility] [address] Lab (1st floor, no room number) [place] [address], [facility] * Osmolality urine (10/13/2024 6:45 PM PHOTOGRAPHIC AIDE) Osmolality Urine 715 100 - 1,200 mmol/kg 10/13/2024 10:26 PM PHOTOGRAPHIC AIDE [facility] Urine MID-STREAM URINE SPECIMEN / Unknown Non-blood Collection / Unknown 10/13/2024 6:45 PM PHOTOGRAPHIC AIDE 10/13/2024 6:52 PM PHOTOGRAPHIC AIDE Narrative [facility] - 10/13/2024 10:26 PM PHOTOGRAPHIC AIDE Reference Ranges depend on patient's hydration status and renal function. Neonates: 75-300 mmol/kg 2 years and older, random specimens: 100-1200 mmol/kg; Greater than 850 mmol/kg after 12 hour fluid restriction Urine/serum osmolality ratio: 2 years and older: 1.0-3.0; 3.0-4.7 after 12 hour fluid restriction us Tiarra Smalls PA-C LAB - URINE ORDERABLES F inal Result Performing Organization Address [facility]/ZIP Co de Phone Number U LABORATORY [facility] [place] [facility] [address] [facility], [address] [place] [address] * (ABNORMAL) Glucose by meter (10/13/2024 5:44 PM PHOTOGRAPHIC AIDE) GLUCOSE BY METER POCT 383(H) 70 - 99 mg/dL 10/13/2024 5:50 PM PHOTOGRAPHIC AIDE LABORATORY POC Blood, Capillary BLOOD SPECIMEN / Unknown 10/13/2024 5:44 PM PHOTOGRAPHIC AIDE 10/13/2024 5:50 PM PHOTOGRAPHIC AIDE us Arielle Martel DO LAB - BEAKER POCT Final Re sult LABORATORY POC [facility] [address] Lab (1st floor, no room number) [place] [address], [place] * (ABNORMAL) Glucose by meter (10/13/2024 11:41 AM PHOTOGRAPHIC AIDE) GLUCOSE BY METER POCT 312(H) 70 - 99 mg/dL 10/13/2024 11:47 AM PHOTOGRAPHIC AIDE LABORATORY POC Blood, Capillary BLOOD SPECIMEN / Unknown 10/13/2024 11:41 AM PHOTOGRAPHIC AIDE 10/13/2024 11:47 AM PHOTOGRAPHIC AIDE Arielle Martel DO LAB - BEAKER POCT Final Re sult LABORATORY [facility] Lab [address] [facility] Lab (1st floor, no room number) [place] [phone] [place] [address] * (ABNORMAL) Glucose by meter (10/13/2024 8:40 AM PHOTOGRAPHIC AIDE) GLUCOSE BY METER POCT 310(H) 70 - 99 mg/dL 10/13/2024 8:46 AM PHOTOGRAPHIC AIDE LABORATORY POC Comment:Dr/RN Notified Blood, Capillary BLOOD SPECIMEN / Unknown 10/13/2024 8:40 AM PHOTOGRAPHIC AIDE 10/13/2024 8:46 AM PHOTOGRAPHIC AIDE Arielle Delonte LAB - BEAKER POCT Final Re sult Performing Organization Address [facility]/ZIP Co de Phone Number LABORATORY [facility] Lab [address] Lab (1st floor, no room number) [place] [phone] [place] [address] * Osmolality (10/13/2024 7:01 AM PHOTOGRAPHIC AIDE) Osmolality Blood 290 280 - 301 mmol/kg 10/13/2024 10:15 PM PHOTOGRAPHIC AIDE [facility] Blood STRUCTURE OF LEFT HAND / Unknown Venipuncture / Unknown 10/13/2024 7:01 AM PHOTOGRAPHIC AIDE 10/13/2024 7:07 AM PHOTOGRAPHIC AIDE Narrative [facility] - 10/13/2024 10:15 PM PHOTOGRAPHIC AIDE Greater than 385 mmol/kg relates to stupor in hyperglycemia Greater than 400 mmol/kg can relate to seizures Greater than 420 mmol/kg can be lethal Serum Osmalar Gap: Normal <10 Larger suggest unmeasured substances present in serum (ethanol, methanol, isopropanol, mannitol, ethylene glycol). Tiarra Smalls PA-C LAB - BLOOD ORDERABLES F inal Result LABORATORY [facility] [place] [facility] [address] [facility] [address], [address] [place] [address] * Phosphorus (10/13/2024 7:01 AM PHOTOGRAPHIC AIDE) Phosphorus 3.6 2.5 - 4.5 mg/dL 10/13/2024 7:28 AM PHOTOGRAPHIC AIDE LABORATORY Blood STRUCTURE OF LEFT HAND / Unknown Venipuncture / Unknown 10/13/2024 7:01 AM PHOTOGRAPHIC AIDE 10/13/2024 7:07 AM PHOTOGRAPHIC AIDE Arielle Martel DO LAB - BLOOD ORDERABLES Fin al Result Performing Organization Address City/[facility]/ZIP Co de Phone Number [facility] Lab [address] Lab (1st floor, no room number) [place] [address] * Magnesium (10/13/2024 7:01 AM PHOTOGRAPHIC AIDE) Magnesium 2.1 1.7 - 2.3 mg/dL 10/13/2024 7:28 AM PHOTOGRAPHIC AIDE LABORATORY Blood STRUCTURE OF LEFT HAND / Unknown Venipuncture / Unknown 10/13/2024 7:01 AM PHOTOGRAPHIC AIDE 10/13/2024 7:07 AM PHOTOGRAPHIC AIDE Arielle Martel DO LAB - BLOOD ORDERABLES Fin al Result [facility] Lab [address] Lab (1st floor, no room number) [place] [address] * (ABNORMAL) CBC with platelets (10/13/2024 7:01 AM PHOTOGRAPHIC AIDE) WBC Count 13.4(H) 4.0 - 11.0 10e3/uL 10/13/2024 7:09 AM [facility] LABORATORY RBC Count 4.23(L) 4.40 - 5.90 10e6/uL 10/13/2024 7:09 AM [facility] LABORATORY Hemoglobin 12.7(L) 13.3 - 17.7 g/dL 10/13/2024 7:09 AM [facility] LABORATORY Hematocrit 36.9(L) 40.0 - 53.0 % 10/13/2024 7:09 AM [facility] LABORATORY MCV 87 78 - 100 fL 10/13/2024 7:09 AM [facility] LABORATORY MCH 30.0 26.5 - 33.0 pg 10/13/2024 7:09 AM [facility] LABORATORY MCHC 34.4 31.5 - 36.5 g/dL 10/13/2024 7:09 AM [facility] LABORATORY RDW 11.8 10.0 - 15.0 % 10/13/2024 7:09 AM [facility] LABORATORY Platelet Count 167 150 - 450 10e3/uL 10/13/2024 7:09 AM [facility] LABORATORY Blood STRUCTURE OF LEFT HAND / Unknown Venipuncture / Unknown 10/13/2024 7:01 AM PHOTOGRAPHIC AIDE 10/13/2024 7:07 AM [facility] us Arielle Martel DO LAB - BLOOD ORDERABLES Fin al Result LABORATORY [facility] [address] [facility] Lab (1st floor, no room number) [place] [address], [facility] [place] * (ABNORMAL) Comprehensive metabolic panel (10/13/2024 7:01 AM PHOTOGRAPHIC AIDE) Pathologist [facility] [place] Sodium 126(L) 135 - 145 mmol/L 10/13/2024 7:28 AM [facility] LABORATORY Potassium 4.4 3.4 - 5.3 mmol/L 10/13/2024 7:28 AM [facility] LABORATORY Carbon Dioxide (CO2) 24 22 - 29 mmol/L 10/13/2024 7:28 AM [facility] LABORATORY Anion Gap 11 7 - 15 mmol/L 10/13/2024 7:28 AM [facility] LABORATORY Urea Nitrogen 24.7(H) 8.0 - 23.0 mg/dL 10/13/2024 7:28 AM [facility] LABORATORY Creatinine 0.80 0.67 - 1.17 mg/dL 10/13/2024 7:28 AM [facility] LABORATORY GFR Estimate >90 >60 mL/min/1.7 3m2 10/13/2024 7:28 AM [facility] LABORATORY Comment:eGFR calculated usin 2020 CKD-EPI equation. Calcium 8.9 8.8 - 10.4 mg/dL 10/13/2024 7:28 AM [facility] LABORATORY Chloride 91(L) 98 - 107 mmol/L 10/13/2024 7:28 AM [facility] LABORATORY Glucose 318(H) 70 - 99 mg/dL 10/13/2024 7:28 AM [facility] LABORATORY Alkaline Phosphatase 95 40 - 150 U/L 10/13/2024 7:28 AM [facility] LABORATORY AST 18 0 - 45 U/L 10/13/2024 7:28 AM [facility] LABORATORY ALT 20 0 - 70 U/L 10/13/2024 7:28 AM [facility] LABORATORY Protein Total 5.9(L) 6.4 - 8.3 g/dL 10/13/2024 7:28 AM [facility] LABORATORY Albumin 3.3(L) 3.5 - 5.2 g/dL 10/13/2024 7:28 AM [facility] LABORATORY Bilirubin Total 0.8 <=1.2 mg/dL 10/13/2024 7:28 AM [facility] LABORATORY Blood STRUCTURE OF LEFT HAND / Unknown Venipuncture / Unknown 10/13/2024 7:01 AM PHOTOGRAPHIC AIDE 10/13/2024 7:07 AM [facility] us Arielle Martel DO LAB - BLOOD ORDERABLES Fin al Result LABORATORY [facility] [address] [facility] Lab (1st floor, no room number) [place] [address], [facility] [place] * (ABNORMAL) Glucose by meter (10/13/2024 2:06 AM PHOTOGRAPHIC AIDE) [facility] GLUCOSE BY METER POCT 299(H) 70 - 99 mg/dL 10/13/2024 2:13 AM PHOTOGRAPHIC AIDE LABORATORY POC Blood, Capillary BLOOD SPECIMEN / Unknown 10/13/2024 2:06 AM PHOTOGRAPHIC AIDE 10/13/2024 2:13 AM PHOTOGRAPHIC AIDE Arielle Martel DO LAB - BEAKER POCT Final Re sult LABORATORY [facility] [address] Lab (1st floor, no room number) [place] [address], [place] * (ABNORMAL) Glucose by meter (10/12/2024 9:34 PM PHOTOGRAPHIC AIDE) GLUCOSE BY METER POCT 304(H) 70 - 99 mg/dL 10/12/2024 9:41 PM PHOTOGRAPHIC AIDE LABORATORY POC Blood, Capillary BLOOD SPECIMEN / Unknown 10/12/2024 9:34 PM PHOTOGRAPHIC AIDE 10/12/2024 9:41 PM PHOTOGRAPHIC AIDE Arielle Delonte REYNOSO LAB - BEAKER POCT Final Re sult LABORATORY [facility] Lab [address] Lab (1st floor, no room number) [place] [address], [place] * (ABNORMAL) Glucose by meter (10/12/2024 8:19 PM PHOTOGRAPHIC AIDE) GLUCOSE BY METER POCT 300(H) 70 - 99 mg/dL 10/12/2024 8:25 PM PHOTOGRAPHIC AIDE LABORATORY POC Blood, Capillary BLOOD SPECIMEN / Unknown 10/12/2024 8:19 PM PHOTOGRAPHIC AIDE 10/12/2024 8:25 PM PHOTOGRAPHIC AIDE Arielle Delonte LAB - BEAKER POCT Final Re sult LABORATORY [facility] Lab [address] Lab (1st floor, no room number) [place] [address], [facility] [place] * (ABNORMAL) Sodium (10/12/2024 8:02 PM PHOTOGRAPHIC AIDE) Sodium 127(L) 135 - 145 mmol/L 10/12/2024 8:34 PM PHOTOGRAPHIC AIDE LABORATORY Blood STRUCTURE OF LEFT UPPER LIMB / Unknown Venipuncture / Unknown 10/12/2024 8:02 PM PHOTOGRAPHIC AIDE 10/12/2024 8:05 PM PHOTOGRAPHIC AIDE Arielle Martel DO LAB - BLOOD ORDERABLES Fin al Result LABORATORY [facility] [address] [facility] Lab (1st floor, no room number) [place] [address] * Legionella Urinary Antigen and Streptococcus pneumoniae antigen (10/12/2024 7:29 PM PHOTOGRAPHIC AIDE) Legionella pneumophila serogroup 1 urinary antigen Negative Negative YARIEL 10/13/2024 12:56 AM PHOTOGRAPHIC AIDE [facility] Comment:A negative result do es not exclude the possibility of a Legionella infection, as it can be caused by other serogroups and species of Legionella. Streptococcus pneumoniae antigen Negative Negative YARIEL 10/13/2024 12:56 AM PHOTOGRAPHIC AIDE [facility] Comment:A negative result do es not exclude a Streptococcus pneumoniae infection. Legionella pneumophila Urinary/Strep pneumoniae Antigen Specimen Type Urine 10/13/2024 12:56 AM PHOTOGRAPHIC AIDE [facility] Urine URINE SPECIMEN OBTAINED BY CLEAN CATCH PROCEDURE / Unknown Non-blood Collection / Unknown 10/12/2024 7:29 PM PHOTOGRAPHIC AIDE 10/12/2024 7:36 PM PHOTOGRAPHIC AIDE Narrative [facility] - 10/13/2024 12:56 AM PHOTOGRAPHIC AIDE The result of this test as well [...] ORDERA BLES Final Result [facility] LABORATORY [facility] Inf. Diseases Diag. Lab [address] [facility], [address] [place] [address], [facility] [place] * (ABNORMAL) Glucose by meter (10/12/2024 5:08 PM PHOTOGRAPHIC AIDE) GLUCOSE BY METER POCT 138(H) 70 - 99 mg/dL 10/12/2024 5:14 PM PHOTOGRAPHIC AIDE LABORATORY POC Blood, Capillary BLOOD SPECIMEN / Unknown 10/12/2024 5:08 PM PHOTOGRAPHIC AIDE 10/12/2024 5:14 PM PHOTOGRAPHIC AIDE Arielle Martel DO LAB - BEAKER POCT Final Re sult LABORATORY POC [facility] Lab [address] Lab (1st floor, no room number) [place] [address], [facility] [place] * (ABNORMAL) Sodium (10/12/2024 3:19 PM PHOTOGRAPHIC AIDE) Sodium 130(L) 135 - 145 mmol/L 10/12/2024 3:43 PM PHOTOGRAPHIC AIDE LABORATORY Blood STRUCTURE OF LEFT UPPER LIMB / Unknown Venipuncture / Unknown 10/12/2024 3:19 PM PHOTOGRAPHIC AIDE 10/12/2024 3:24 PM PHOTOGRAPHIC AIDE Arielle Martel DO LAB - BLOOD ORDERABLES Fin al Result LABORATORY [facility] Lab [address] Lab (1st floor, no room number) [place] [address], [facility] [place] * Troponin T, High Sensitivity (10/12/2024 2:16 PM PHOTOGRAPHIC AIDE) Troponin T, High Sensitivity 14 <=22 ng/L 10/12/2024 2:42 PM PHOTOGRAPHIC AIDE LABORATORY Comment: Either a High Sensitivity Troponin [...] Unknown Venipuncture / Unknown 10/12/2024 2:16 PM PHOTOGRAPHIC AIDE 10/12/2024 2:20 PM PHOTOGRAPHIC AIDE Wilber Ndiaye MD LAB - BLOOD ORDERABLES Final Res ult LABORATORY [facility] Lab [address] [facility] Lab (1st floor, no room number) [place] [address], [facility] [place] * (ABNORMAL) UA with Microscopic (10/12/2024 1:50 PM PHOTOGRAPHIC AIDE) Color Urine Yellow Colorless, Straw, Light Yellow, Yellow 10/12/2024 2:10 PM PHOTOGRAPHIC AIDE LABORATORY Appearance Urine Clear Clear 10/12/19 25 2:10 PM PHOTOGRAPHIC AIDE LABORATORY Glucose Urine 150(A) Negative mg/dL 10/12/2024 2:10 PM PHOTOGRAPHIC AIDE LABORATORY Bilirubin Urine Negative Negative 2:10 PM PHOTOGRAPHIC AIDE LABORATORY Ketones Urine Trace(A) Negative mg/dL 10/12/2024 2:10 PM PHOTOGRAPHIC AIDE LABORATORY Specific [place] Urine 1.010 1.003 - 1.035 10/12/2024 2:10 PM PHOTOGRAPHIC AIDE LABORATORY Blood Urine Negative Negative 10/12/2024 2:10 PM PHOTOGRAPHIC AIDE LABORATORY pH Urine 6.0 5.0 - 7.0 10/12/2024 2:10 PM PHOTOGRAPHIC AIDE LABORATORY Protein Albumin Urine 30(A) Negative mg/dL 10/12/2024 2:10 PM PHOTOGRAPHIC AIDE LABORATORY Urobilinogen Urine Normal Normal, 2.0 mg/dL 10/12/2024 2:10 PM PHOTOGRAPHIC AIDE LABORATORY Nitrite Urine Negative Negative 10/12/2024 2:10 PM PHOTOGRAPHIC AIDE [facility] LABORATORY Leukocyte Esterase Urine Negative Negative 10/12/2024 2:10 PM PHOTOGRAPHIC AIDE [facility] LABORATORY Mucus Urine Present(A) None Seen /LPF 10/12/2024 2:10 PM PHOTOGRAPHIC AIDE [facility] LABORATORY RBC Urine 1 <=2 /HPF 10/12/2024 2:10 PM PHOTOGRAPHIC AIDE [facility] LABORATORY WBC Urine 4 <=5 /HPF 10/12/2024 2:10 PM PHOTOGRAPHIC AIDE [facility] LABORATORY Squamous Epithelials Urine <1 <=1 /HPF 10/12/2024 2:10 PM PHOTOGRAPHIC AIDE [facility] LABORATORY Urine MID-STREAM URINE SPECIMEN / Unknown Non-blood Collection / Unknown 10/12/2024 1:50 PM PHOTOGRAPHIC AIDE 10/12/2024 1:57 PM PHOTOGRAPHIC AIDE us Wilber Ndiaye MD LAB - URINE ORDERABLES Final Res ult RH LABORATORY [facility] [address] Lab (1st floor, no room number) [place] [address] * CT Chest (PE) Abdomen Pelvis w Contrast (10/12/2024 12:19 PM PHOTOGRAPHIC AIDE) Anatomical Region Laterality Modality Chest, SUBRAD CT BODY, UMP CT CHEST, RAD CT Computed Tomography 10/12/2024 12:1 9 PM PHOTOGRAPHIC AIDE Impressions 10/12/2024 2:10 PM PHOTOGRAPHIC AIDE IMPRESSION: 1. No pulmonary embolism. 2. Large consolidation at the right lung base with bilateral patchy airspace opacity within the lower lobes concerning for pneumonia. 3. Multiple low-attenuation lesions are noted within the liver which are indeterminant although cyst or metastatic disease. Further workup is suggested. Narrative 10/12/2024 2:10 PM PHOTOGRAPHIC AIDE EXAM: CT CHEST PE ABDOMEN PELVIS W CONTRAST LOCATION: [facility] DATE: 10/12/2024 INDICATION: Right inferior chest [...] CHEST PE ABDOMEN PELVIS W CONTRAST LOCATION: [facility] DATE: 10/12/2024 INDICATION: Right inferior chest [...] disease. Further workup issuggested. Wilber Ndiaye MD [facility] CT ORDERABLES Final Result * CT Head w/o Contrast (10/12/2024 12:11 PM PHOTOGRAPHIC AIDE) Anatomical Region Laterality Modality Head, SUBRAD CT NEURO, SUBRA D CT NEURO, UMP CT NEURO, RAD CT Computed Tomography 10/12/2024 12:1 1 PM PHOTOGRAPHIC AIDE Impressions 10/12/2024 1:27 PM PHOTOGRAPHIC AIDE IMPRESSION: 1. No intracranial hemorrhage, mass lesions, [...] left cingulate gyrus. Narrative 10/12/2024 1:27 PM PHOTOGRAPHIC AIDE EXAM: CT HEAD W/O CONTRAST LOCATION: [facility] DATE: 10/12/2024 INDICATION: Fall, on eliquis, eval [...] 10/12/2024 EXAM: CT HEAD W/O CONTRAST LOCATION: [facility] DATE: 10/12/2024 INDICATION: Fall, on eliquis, eval [...] Blood Culture Arm, Left (10/12/2024 11:28 AM PHOTOGRAPHIC AIDE) Culture No Growth 10/17/2024 3:32 PM PHOTOGRAPHIC AIDE [facility] Blood STRUCTURE OF LEFT UPPER LIMB / Unknown Venipuncture / Unknown 10/12/2024 11:28 AM PHOTOGRAPHIC AIDE 10/12/2024 11:32 AM PHOTOGRAPHIC AIDE Wilber Ndiaye MD LAB - MICRO GENERAL ORDERABLES F inal Result [facility] LABORATORY [facility] Inf. Diseases Diag. Lab [address] [facility], [address] [place], [place] [phone] * EKG 12 lead (10/12/2024 11:02 AM PHOTOGRAPHIC AIDE) Systolic Blood Pressure mmHg RADIOLOGY RESULTS Diastolic Blood Pressure mmHg RADIOLOGY RESULTS Ventricular Rate 88 BPM RAD IOLOGY RESULTS Atrial Rate 88 BPM RADIOLOG Y RESULTS NH Interval 154 ms RADIOLOG Y RESULTS QRS Duration 100 ms RADIOLO GY RESULTS QT 348 ms RADIOLOGY RESULTS QTc 421 ms RADIOLOGY RESULTS P [place] 53 degrees RADIOLOGY RESULTS R AXIS 13 degrees RADIOLOGY RESULTS T [place] 49 degrees RADIOLOGY RESULTS Interpretation ECG Sinus rhythm Normal ECG When compared with ECG of 24-May-2024 11:19, Vent. rate has increased by 35 bpm Confirmed by - EMERGENCY ROOM, PHYSICIAN ([id number]), photographic editor ROMY GILMAN ([id number]) on 10/13/2024 6:49:33 AM RADIOLOGY RESULTS 10/12/2024 11:0 2 AM PHOTOGRAPHIC AIDE 10/13/2024 6:49 AM PHOTOGRAPHIC AIDE us Wilber Ndiaye MD ECG ORDERABLES Edited Result - Final RADIOLOGY RESULTS * Creatinine POCT (10/12/2024 11:00 AM PHOTOGRAPHIC AIDE) Creatinine POCT 1.1 0.7 - 1.3 mg/dL 10/12/2024 11:04 AM PHOTOGRAPHIC AIDE [facility] LABORATORY POC GFR, ESTIMATED POCT >60 >60 mL/min/1.7 3m2 10/12/2024 11:04 AM PHOTOGRAPHIC AIDE [facility] LABORATORY POC Blood, venous BLOOD SPECIMEN / Unknown 10/12/2024 11:00 AM PHOTOGRAPHIC AIDE 10/12/2024 11:04 AM PHOTOGRAPHIC AIDE us Wilber Ndiaye MD LAB - BEAKER POCT Final Result RH LABORATORY POC [facility] Lab [address] [facility] Lab (1st floor, no room number) [place] [address] * (ABNORMAL) iStat Gases (lactate) venous, POCT (10/12/2024 10:59 AM PHOTOGRAPHIC AIDE) Lactic Acid POCT 1.1 <=2.0 mmol/L 10/12/2024 11:03 AM PHOTOGRAPHIC AIDE [facility] LABORATORY POC Bicarbonate Venous POCT 31(H) 21 - 28 mmol/L 10/12/2024 11:03 AM PHOTOGRAPHIC AIDE [facility] LABORATORY POC O2 Sat, Venous POCT 56(L) 70 - 75 % 10/12/2024 11:03 AM PHOTOGRAPHIC AIDE [facility] LABORATORY POC pCO2 Venous POCT 49 40 - 50 mm Hg 10/12/2024 11:03 AM PHOTOGRAPHIC AIDE [facility] LABORATORY POC pH Venous POCT 7.40 7.32 - 7.43 10/12/2024 11:03 AM PHOTOGRAPHIC AIDE [facility] LABORATORY POC pO2 Venous POCT 30 25 - 47 mm Hg 10/12/2024 11:03 AM PHOTOGRAPHIC AIDE [facility] LABORATORY POC Blood, venous BLOOD SPECIMEN / Unknown 10/12/2024 10:59 AM PHOTOGRAPHIC AIDE 10/12/2024 11:03 AM PHOTOGRAPHIC AIDE us Wilber Ndiaye MD LAB - BEAKER POCT Final Result LABORATORY POC [facility] Lab [address] Lab (1st floor, no room number) [place] [address] * Extra Green Top ([place] Heparin) Tube (10/12/2024 10:56 AM PHOTOGRAPHIC AIDE) Hold Specimen [facility] 10/12/2024 12:05 PM PHOTOGRAPHIC AIDE [facility] LABORATORY Blood STRUCTURE OF RIGHT UPPER LIMB / Unknown Venipuncture / Unknown 10/12/2024 10:56 AM PHOTOGRAPHIC AIDE 10/12/2024 11:02 AM PHOTOGRAPHIC AIDE us Wilber Ndiaye MD LAB - BLOOD ORDERABLES Final Res ult [facility] Lab [address] Lab (1st floor, no room number) [place] [address], [facility] * Extra Red Top Tube (10/12/2024 10:56 AM PHOTOGRAPHIC AIDE) Hold Specimen [facility] 10/12/2024 12:05 PM PHOTOGRAPHIC AIDE [facility] LABORATORY Blood STRUCTURE OF RIGHT UPPER LIMB / Unknown Venipuncture / Unknown 10/12/2024 10:56 AM PHOTOGRAPHIC AIDE 10/12/2024 11:02 AM PHOTOGRAPHIC AIDE us Wilber Ndiaye MD LAB - BLOOD ORDERABLES Final Res ult [facility] Lab [address] Lab (1st floor, no room number) [place] [address], [facility] * Extra Blue Top Tube (10/12/2024 10:56 AM PHOTOGRAPHIC AIDE) Hold Specimen [facility] 10/12/2024 12:05 PM PHOTOGRAPHIC AIDE [facility] LABORATORY Blood STRUCTURE OF RIGHT UPPER LIMB / Unknown Venipuncture / Unknown 10/12/2024 10:56 AM PHOTOGRAPHIC AIDE 10/12/2024 11:02 AM PHOTOGRAPHIC AIDE us Wilber Ndiaye MD LAB - BLOOD ORDERABLES Final Res ult RH LABORATORY [facility] Lab [address] Lab (1st floor, no room number) [place] [address] * (ABNORMAL) CBC with platelets and differential (10/12/2024 10:55 AM PHOTOGRAPHIC AIDE) WBC Count 14.4(H) 4.0 - 11.0 10e3/uL 10/12/2024 11:05 AM PHOTOGRAPHIC AIDE [facility] LABORATORY RBC Count 4.74 4.40 - 5.90 10e6/uL 10/12/2024 11:05 AM PHOTOGRAPHIC AIDE LABORATORY Hemoglobin 14.6 13.3 - 17.7 g/dL 10/12/2024 11:05 AM PHOTOGRAPHIC AIDE LABORATORY Hematocrit 40.9 40.0 - 53.0 % 10/12/2024 11:05 AM PHOTOGRAPHIC AIDE LABORATORY MCV 86 78 - 100 fL 10/12/2024 11:05 AM PHOTOGRAPHIC AIDE LABORATORY MCH 30.8 26.5 - 33.0 pg 10/12/2024 11:05 AM PHOTOGRAPHIC AIDE LABORATORY MCHC 35.7 31.5 - 36.5 g/dL 10/12/2024 11:05 AM PHOTOGRAPHIC AIDE LABORATORY RDW 11.5 10.0 - 15.0 % 10/12/2024 11:05 AM PHOTOGRAPHIC AIDE LABORATORY Platelet Count 180 150 - 450 10e3/uL 10/12/2024 11:05 AM PHOTOGRAPHIC AIDE LABORATORY % Neutrophils 86 % 10/12/2024 11:05 AM PHOTOGRAPHIC AIDE [facility] % Lymphocytes 5 % 10/12/2024 11:05 AM PHOTOGRAPHIC AIDE [facility] % Monocytes 8 % 10/12/2024 11:05 AM PHOTOGRAPHIC AIDE LABORATORY % Eosinophils 0 % 10/12/2024 11:05 AM PHOTOGRAPHIC AIDE [facility] % Basophils 0 % 10/12/2024 11:05 AM PHOTOGRAPHIC AIDE [facility] % Immature Granulocytes 1 % 10/12/2024 11:05 AM PHOTOGRAPHIC AIDE LABORATORY NRBCs per 100 WBC 0 <1 /100 025 11:05 AM PHOTOGRAPHIC AIDE LABORATORY Absolute Neutrophils 12.4(H) 1.6 - 8.3 10e3/uL 10/12/2024 11:05 AM PHOTOGRAPHIC AIDE LABORATORY Absolute Lymphocytes 0.7(L) 0.8 - 5.3 10e3/uL 10/12/2024 11:05 AM PHOTOGRAPHIC AIDE LABORATORY Absolute Monocytes 1.1 0.0 - 1.3 10e3/uL 10/12/2024 11:05 AM PHOTOGRAPHIC AIDE LABORATORY Absolute Eosinophils 0.0 0.0 - 0.7 10e3/uL 10/12/2024 11:05 AM PHOTOGRAPHIC AIDE LABORATORY Absolute Basophils 0.0 0.0 - 0.2 10e3/uL 10/12/2024 11:05 AM PHOTOGRAPHIC AIDE LABORATORY Absolute Immature Granulocytes 0.2 <=0.4 10e3/uL 10/12/2024 11:05 AM PHOTOGRAPHIC AIDE LABORATORY Absolute NRBCs 0.0 10e3/uL 10/12/2024 11:05 AM PHOTOGRAPHIC AIDE LABORATORY Blood BLOOD SPECIMEN / Unknown Venipuncture / Unknown 10/12/2024 10:55 AM PHOTOGRAPHIC AIDE 10/12/2024 11:02 AM PHOTOGRAPHIC AIDE us Wilber Ndiaye MD LAB - BLOOD ORDERABLES Final Res ult LABORATORY [facility] [address] (1st floor, no room number) [place] [address], [facility], [place] * Troponin T, High Sensitivity (10/12/2024 10:55 AM PHOTOGRAPHIC AIDE) Troponin T, High Sensitivity 15 <=22 ng/L 10/12/2024 11:24 AM PHOTOGRAPHIC AIDE LABORATORY Comment: Either a High Sensitivity Troponin [...] Unknown Venipuncture / Unknown 10/12/2024 10:55 AM PHOTOGRAPHIC AIDE 10/12/2024 11:02 AM PHOTOGRAPHIC AIDE us Wilber Ndiaye MD LAB - BLOOD ORDERABLES Final Res ult LABORATORY [facility] [address] Lab (1st floor, no room number) [place] [address] * Blood Culture Peripheral Blood (10/12/2024 10:55 AM PHOTOGRAPHIC AIDE) Pathologist [facility] Culture No Growth 10/17/2024 1:46 PM PHOTOGRAPHIC AIDE [facility] Blood BLOOD SPECIMEN / Unknown Venipuncture / Unknown 10/12/2024 10:55 AM PHOTOGRAPHIC AIDE 10/12/2024 11:02 AM PHOTOGRAPHIC AIDE us Wilber Ndiaye MD LAB - MICRO GENERAL ORDERABLES F inal Result [facility] Inf. Diseases Diag. Lab [address] [facility], [address] [place] [address], [facility] [place] * (ABNORMAL) Comprehensive metabolic panel (10/12/2024 10:55 AM PHOTOGRAPHIC AIDE) Sodium 126(L) 135 - 145 mmol/L 10/12/2024 11:24 AM PHOTOGRAPHIC AIDE LABORATORY Potassium 4.5 3.4 - 5.3 mmol/L 10/12/2024 11:24 AM PHOTOGRAPHIC AIDE LABORATORY Carbon Dioxide (CO2) 26 22 - 29 mmol/L 10/12/2024 11:24 AM PHOTOGRAPHIC AIDE LABORATORY Anion Gap 10 7 - 15 mmol/L 10/12/2024 11:24 AM PHOTOGRAPHIC AIDE LABORATORY Urea Nitrogen 22.1 8.0 - 23.0 mg/dL 10/12/2024 11:24 AM PHOTOGRAPHIC AIDE LABORATORY Creatinine 0.94 0.67 - 1.17 mg/dL 10/12/2024 11:24 AM PHOTOGRAPHIC AIDE LABORATORY GFR Estimate >90 >60 mL/min/1.7 3m2 10/12/2024 11:24 AM [facility] Comment:eGFR calculated usin 2020 CKD-EPI equation. Calcium 9.0 8.8 - 10.4 mg/dL 10/12/2024 11:24 AM [facility] Chloride 90(L) 98 - 107 mmol/L 10/12/2024 11:24 AM [facility] Glucose 223(H) 70 - 99 mg/dL 10/12/2024 11:24 AM [facility] Alkaline Phosphatase 93 40 - 150 U/L 10/12/2024 11:24 AM [facility] AST 15 0 - 45 U/L 10/12/2024 11:24 AM [facility] ALT 22 0 - 70 U/L 10/12/2024 11:24 AM [facility] Protein Total 6.4 6.4 - 8.3 g/dL 10/12/2024 11:24 AM [facility] Albumin 3.9 3.5 - 5.2 g/dL 10/12/2024 11:24 AM [facility] Bilirubin Total 1.4(H) <=1.2 mg/dL 10/12/2024 11:24 AM [facility] Blood BLOOD SPECIMEN / Unknown Venipuncture / Unknown 10/12/2024 10:55 AM PHOTOGRAPHIC AIDE 10/12/2024 11:02 AM PHOTOGRAPHIC AIDE Wilber Ndiaye MD LAB - BLOOD ORDERABLES Final Res ult LABORATORY [facility] [address] Lab (1st floor, no room number) [place] [address], [facility] [place] * Influenza A/B, RSV and SARS-CoV2 PCR (COVID-19) Nasopharyngeal (10/12/2024 10:39 AM PHOTOGRAPHIC AIDE) Influenza A PCR Negative Negative 10/12/2024 11:31 AM PHOTOGRAPHIC AIDE LABORATORY Influenza B PCR Negative Negative 10/12/2024 11:31 AM PHOTOGRAPHIC AIDE LABORATORY RSV PCR Negative Negative 10/12/2024 11:31 AM PHOTOGRAPHIC AIDE LABORATORY SARS CoV2 PCR Negative Negative 10/12/2024 11:31 AM PHOTOGRAPHIC AIDE LABORATORY Comment:NEGATIVE: SARS-CoV-2 (COVID-19) RNA not detected, presumed negative. Swab NASOPHARYNGEAL STRUCTURE / Unknown Non-blood Collection / Unknown 10/12/2024 10:39 AM PHOTOGRAPHIC AIDE 10/12/2024 10:49 AM PHOTOGRAPHIC AIDE Narrative LABORATORY - 10/12/2024 11:31 AM PHOTOGRAPHIC AIDE Testing was performed using the Xpert Xpress CoV2/Flu/RSV Assay on the [employer] GeneXpert Instrument. This test should be ordered [...] management. This test was validated by the [facility]. These laboratories are certified under the Clinical Laboratory Improvement Amendments of 1988 (CLIA-88) as qualified to perfom high complexity laboratory testing. Wilber Ndiaye MD LAB - MICRO GENERAL ORDERABLES F inal Result LABORATORY [facility] [address] [facility] Lab (1st floor, no room number) [place] [address] * EKG Cardiac - HIM Scan (10/12/2024 12:00 AM PHOTOGRAPHIC AIDE) 10/12/2024 us Provider Outside ECG ORDERABLES Final Result * EKG Cardiac - HIM Scan (10/12/2024 12:00 AM PHOTOGRAPHIC AIDE) 10/12/2024 us Provider Outside ECG ORDERABLES Final [...] CDT 650 mg $Given 10/25/2024 3:20 PM PHOTOGRAPHIC AIDE 650 mg $Given 10/25/2024 8:08 AM PHOTOGRAPHIC AIDE 650 mg alteplase (ACTIVASE) 10 mg, dornase talia (PULMOZYME) 5 mg in sodium chloride 0.9 % 50 mL for chest tube instillation in syringe 50 mL, Chest Tube, 2 TIMES DAILY, First dose on Sun10/20/24 at 2100, For 6 doses, Instill into the chest tube and clamp for 1 hour. $Given 10/23/2024 10:04 AM PHOTOGRAPHIC AIDE 50 mLs $Given 10/22/2024 9:04 PM PHOTOGRAPHIC AIDE 50 mLs $Given 10/22/2024 9:32 AM PHOTOGRAPHIC AIDE 50 mLs amiodarone (NEXTERONE) 1.8 mg/mL in [...] of phlebitis. Rate/Dose Verify 10/15/2024 11:00 AM PHOTOGRAPHIC AIDE 1 mg/min 33.3 mL/hr Rate/Dose Verify 10/15/2024 10:00 AM PHOTOGRAPHIC AIDE 1 mg/min 33.3 m L/hr Rate/Dose Verify 10/15/2024 9:00 AM PHOTOGRAPHIC AIDE 1 mg/min 33.3 mL /hr amiodarone (NEXTERONE) [...] of phlebitis. $New Bag 10/16/2024 12:09 PM PHOTOGRAPHIC AIDE 0.5 mg/min 16.7 mL/hr Rate/Dose Verify 10/16/2024 8:43 AM PHOTOGRAPHIC AIDE 0.5 mg/min 16.7 mL /hr Rate/Dose Verify 10/16/2024 7:48 AM PHOTOGRAPHIC AIDE 0.5 mg/min 16.7 mL /hr amiodarone (PACERONE) [...] Afib-non valvularIndications:Afib-non valvular $Given 10/20/2024 7:55 AM PHOTOGRAPHIC AIDE 5 mg $Given 10/19/2024 8:54 PM PHOTOGRAPHIC AIDE 5 mg $Given 10/19/2024 8:50 AM PHOTOGRAPHIC AIDE 5 mg atorvastatin (LIPITOR) tablet 40 mg 40 mg, Oral, EVERY EVENING, First dose on Sun10/27/24 at 2000 $Given 10/27/2024 7:27 PM CDT 40 mg azithromycin (ZITHROMAX) 500 mg in NS 250 mL intermittent infusion STAT, 500 mg, Intravenous, ONCE, On 10/12/24 at 1235, For 1 dose, Indications: Community Acquired PneumoniaIndications:Community Acquired Pneumonia $New Bag 10/12/2024 1:17 PM PHOTOGRAPHIC AIDE 500 mg azithromycin (ZITHROMAX) 500 mg in NS 250 mL intermittent infusion Routine, 500 mg, Intravenous, EVERY 24 HOURS, First dose (after last reorder) on Sun10/13/24 at 0800, Indications: Community Acquired PneumoniaIndications:Community Acquired Pneumonia $New Bag 10/14/2024 9:37 AM PHOTOGRAPHIC AIDE 500 mg $New Bag 10/13/2024 9:34 AM PHOTOGRAPHIC AIDE 500 mg benzonatate (TESSALON) capsule 100 mg [...] for loose stools. $Given 10/15/2024 11:58 AM PHOTOGRAPHIC AIDE 10 mg carboxymethylcellulose PF (REFRESH PLUS) 0.5 [...] SBP < 100 $Given 10/17/2024 6:29 AM PHOTOGRAPHIC AIDE 12.5 m g $Given 10/16/2024 5:37 PM PHOTOGRAPHIC AIDE 12.5 mg $Given 10/16/2024 8:34 AM PHOTOGRAPHIC AIDE 12.5 mg cefTRIAXone (ROCEPHIN) 2 g vial [...] Acquired Pneumonia $New Bag 10/12/2024 12:48 PM PHOTOGRAPHIC AIDE 2 g cefTRIAXone (ROCEPHIN) 2 g vial [...] Acquired Pneumonia $New Bag 10/14/2024 8:40 AM PHOTOGRAPHIC AIDE 2 g 200 mL/hr $New Bag 10/13/2024 8:33 AM PHOTOGRAPHIC AIDE 2 g chlorproMAZINE (THORAZINE) tablet 50 mg 50 mg, Oral, 3 TIMES DAILY PRN, hiccups, Starting on Sun10/22/24 at 0922 $Given 10/23/2024 5:20 AM PHOTOGRAPHIC AIDE 50 mg $Given 10/22/2024 9:59 AM PHOTOGRAPHIC AIDE [address] scan flush Intravenous, 100 [...] For 1 dose $Given 10/14/2024 4:03 AM PHOTOGRAPHIC AIDE 20 mg gadobutrol (GADAVIST) injection 8 mL 8 mL, Intravenous, ONCE, On Sun10/15/24 at 1430, For 1 dose, Supplied by, and administered by MRI. $Given 10/15/2024 2:55 PM PHOTOGRAPHIC AIDE 8 mLs gadobutrol (GADAVIST) injection 9 mL 9 mL, Intravenous, ONCE, On Sun10/14/24 at 1530, For 1 dose $Given 10/14/2024 3:39 PM PHOTOGRAPHIC AIDE 9 mLs glucagon injection 1 mg 1 [...] 10/25/24 at 2338 $Given 10/26/2024 12:30 AM PHOTOGRAPHIC AIDE 10 mLs HYDROmorphone (DILAUDID) injection 0.2 mg 0.2 mg, Intravenous, EVERY 4 HOURS PRN, severe pain, Starting on Sun10/13/24 at 0850 $Given 10/21/2024 1:17 PM PHOTOGRAPHIC AIDE 0.2 mg $Given 10/20/2024 5:34 PM PHOTOGRAPHIC AIDE 0.2 mg $Given 10/20/2024 11:29 AM PHOTOGRAPHIC AIDE 0.2 mg HYDROmorphone (PF) (DILAUDID) injection 0.5 mg 0.5 mg, Intravenous, EVERY 15 MIN PRN, severe pain, Starting on Sun10/12/24 at 1049, For 3 doses $Given 10/12/2024 2:32 PM PHOTOGRAPHIC AIDE 0.5 mg $Given 10/12/2024 12:51 PM PHOTOGRAPHIC AIDE 0.5 mg $Given 10/12/2024 11:10 AM PHOTOGRAPHIC AIDE 0.3 mg HYDROmorphone (PF) (DILAUDID) injection 0.5 mg 0.5 mg, Intravenous, EVERY 4 HOURS PRN, severe pain, Starting on Sun10/21/24 at 1517 $Given 10/25/2024 10:20 PM PHOTOGRAPHIC AIDE 0.5 mg $Given 10/25/2024 2:28 PM PHOTOGRAPHIC AIDE 0.5 mg $Given 10/24/2024 9:26 PM PHOTOGRAPHIC AIDE 0.5 mg hydrOXYzine HCl (ATARAX) tablet 25 [...] contact the provider. $Given 10/24/2024 11:43 PM PHOTOGRAPHIC AIDE 25 mg $Given 10/24/2024 8:02 AM PHOTOGRAPHIC AIDE 25 mg $Given 10/24/2024 12:55 AM PHOTOGRAPHIC AIDE 25 mg insulin aspart (NovoLOG) injection (RAPID [...] of correction dose. $Given 10/13/2024 8:42 AM PHOTOGRAPHIC AIDE 2 Units insulin aspart (NovoLOG) injection (RAPID [...] of correction dose. $Given 10/12/2024 9:47 PM PHOTOGRAPHIC AIDE 2 U nits insulin aspart (NovoLOG) injection (RAPID ACTING) 2 Units, Subcutaneous, ONCE, On Sun10/12/24 at 2050, For 1 dose $Given 10/12/2024 9:46 PM PHOTOGRAPHIC AIDE 2 Units insulin aspart (NovoLOG) injection (RAPID [...] of correction dose. $Given 10/15/2024 6:22 PM PHOTOGRAPHIC AIDE 4 Units $Given 10/15/2024 12:12 PM PHOTOGRAPHIC AIDE 4 Units $Given 10/15/2024 9:47 AM PHOTOGRAPHIC AIDE 3 Units insulin aspart (NovoLOG) injection (RAPID [...] of correction dose. $Given 10/15/2024 9:45 PM PHOTOGRAPHIC AIDE 3 Units $Given 10/14/2024 10:42 PM PHOTOGRAPHIC AIDE 3 Units $Given 10/13/2024 9:19 PM PHOTOGRAPHIC AIDE 5 Units insulin aspart (NovoLOG) injection (RAPID ACTING) 6 Units, Subcutaneous, ONCE, On Sun10/14/24 at 0030, For 1 dose $Given 10/14/2024 12:20 AM PHOTOGRAPHIC AIDE 6 Units insulin aspart (NovoLOG) injection (RAPID ACTING) 8 Units, Subcutaneous, ONCE, On Sun10/15/24 at 0300, For 1 dose $Given 10/15/2024 2:44 AM PHOTOGRAPHIC AIDE 8 Units insulin aspart (NovoLOG) injection (RAPID [...] 2 U nits $Given 10/24/2024 9:38 PM PHOTOGRAPHIC AIDE 2 Units $Given 10/23/2024 9:42 PM PHOTOGRAPHIC AIDE 2 Units insulin glargine (LANTUS PEN) injection 12 Units 12 Units, Subcutaneous, AT BEDTIME, First dose (after last modification) on Sun10/13/24 at 2200 $Given 10/13/2024 9:19 PM PHOTOGRAPHIC AIDE 12 Units insulin glargine (LANTUS PEN) injection 16 Units 16 Units, Subcutaneous, AT BEDTIME, First dose (after last modification) on Sun10/14/24 at 2200 $Given 10/14/2024 10:42 PM PHOTOGRAPHIC AIDE 16 Units insulin glargine (LANTUS PEN) injection 22 Units 22 Units, Subcutaneous, AT BEDTIME, First dose (after last modification) on Sun10/15/24 at 2200 $Given 10/16/2024 9:38 PM PHOTOGRAPHIC AIDE 22 Units $Given 10/15/2024 9:45 PM PHOTOGRAPHIC AIDE 22 Units insulin glargine (LANTUS PEN) injection [...] Sun10/12/24 at 2200 $Given 10/12/2024 10:32 PM PHOTOGRAPHIC AIDE 5 Units insulin NPH injection 6 Units 6 Units, Subcutaneous, ONCE, On Sun10/15/24 at 1100, For 1 dose $Given 10/15/2024 12:11 PM PHOTOGRAPHIC AIDE 6 Units iopamidol (ISOVUE-370) solution 500 mL 500 mL, Intravenous, ONCE, On 10/27/24 at 1400, For 1 dose $Given 10/27/2024 1:41 PM CDT 134 mLs iopamidol (ISOVUE-370) solution 500 mL 500 mL, Intravenous, ONCE, On 10/12/24 at 1210, For 1 dose $Given 10/12/2024 12:12 PM PHOTOGRAPHIC AIDE 98 mLs ketorolac (TORADOL) injection 15 mg [...] to 2 minutes. $Given 10/23/2024 8:50 AM PHOTOGRAPHIC AIDE 15 mg lamoTRIgine (LaMICtal) tablet 300 mg [...] dose $Given by Other 10/14/2024 11:02 AM PHOTOGRAPHIC AIDE 10 mLs lidocaine 1 % 10 mL 10 mL, Subcutaneous, ONCE, On Sun10/16/24 at 1130, For 1 dose $Given by Other 10/16/2024 11:15 AM PHOTOGRAPHIC AIDE 10 mLs lisinopril (ZESTRIL) tablet 30 mg 30 mg, Oral, DAILY, First dose on Sun10/13/24 at 0800, HOLD WITH HR < 60 of SBP < 130 $Given 10/29/2024 8:28 AM CDT 30 mg $Given 10/28/2024 9:38 AM CDT 30 mg $Given 10/22/2024 8:00 AM PHOTOGRAPHIC AIDE 30 mg magnesium oxide (MAG-OX) tablet 400 [...] level next AM $Given 10/23/2024 9:06 PM PHOTOGRAPHIC AIDE 400 mg $Given 10/23/2024 6:09 PM PHOTOGRAPHIC AIDE 400 mg magnesium oxide (MAG-OX) tablet 400 [...] level next AM $Given 10/25/2024 11:07 PM PHOTOGRAPHIC AIDE 400 mg $Given 10/25/2024 8:28 PM PHOTOGRAPHIC AIDE 400 mg magnesium oxide (MAG-OX) tablet 400 [...] level next AM $Given 10/20/2024 6:32 AM PHOTOGRAPHIC AIDE 400 mg $Given 10/20/2024 3:30 AM PHOTOGRAPHIC AIDE 400 mg melatonin tablet 3 mg 3 [...] For 1 dose $Given 10/15/2024 1:52 AM PHOTOGRAPHIC AIDE 5 mg metoprolol (LOPRESSOR) injection 5 mg 5 mg, Intravenous, ONCE, Administer over 5-10 Minutes, On Sun10/15/24 at 0330, For 1 dose $Given 10/15/2024 3:38 AM PHOTOGRAPHIC AIDE 5 mg metoprolol (LOPRESSOR) injection 5 mg 5 mg, Intravenous, ONCE, Administer over 5-10 Minutes, On Sun10/17/24 at 1200, For 1 dose $Given 10/17/2024 12:44 PM PHOTOGRAPHIC AIDE 5 mg metoprolol succinate ER (TOPROL XL) [...] via enteral route. $Given 10/17/2024 10:47 PM PHOTOGRAPHIC AIDE 25 mg $Given 10/17/2024 4:18 PM PHOTOGRAPHIC AIDE 25 mg miconazole (MICATIN) 2 % powder Topical, 2 TIMES DAILY, First dose on Sun10/19/24 at 2100, Apply to skin folds $Given 10/28/2024 9:26 PM CDT $Given 10/28/2024 9:48 AM CDT $Given 10/27/2024 9:01 AM CDT morphine (PF) injection 1 mg 1 mg, Intravenous, ONCE, On 10/12/24 at 2105, For 1 dose $Given 10/12/2024 10:10 PM PHOTOGRAPHIC AIDE 1 mg multivitamin w/minerals (THERA-VIT-M) tablet 1 [...] Sun10/12/24 at 1657 $Given 10/13/2024 1:30 AM PHOTOGRAPHIC AIDE 5 mg $Given 10/12/2024 6:38 PM PHOTOGRAPHIC AIDE 5 mg oxyCODONE (ROXICODONE) tablet 5 mg 5 mg, Oral, EVERY 4 HOURS PRN, severe pain, Starting on Sun10/13/24 at 0453 $Given 10/28/2024 9:12 PM CDT 5 mg $Given 10/26/2024 5:42 AM CDT 5 mg $Given 10/25/2024 8:47 PM PHOTOGRAPHIC AIDE 5 mg piperacillin-tazobactam (ZOSYN) 3.375 g vial [...] Sun10/13/24 at 1600 $Given 10/13/2024 5:55 PM PHOTOGRAPHIC AIDE 1 packet senna-docusate (SENOKOT-S/PERICOLACE) 8.6-50 MG per [...] for loose stools. $Given 10/15/2024 9:14 AM PHOTOGRAPHIC AIDE 1 table t senna-docusate (SENOKOT-S/PERICOLACE) 8.6-50 MG [...] IV dormant line. $Given 10/13/2024 1:31 AM PHOTOGRAPHIC AIDE 3 mLs $Given 10/12/2024 6:31 PM PHOTOGRAPHIC AIDE 3 mLs sodium chloride (PF) 0.9% PF flush 3 mL 3 mL, Intracatheter, EVERY 8 HOURS, First dose on Sun10/12/24 at 1525, to lock peripheral IV dormant line $Given 10/15/2024 9:47 AM PHOTOGRAPHIC AIDE 3 mLs $Given 10/14/2024 10:44 PM PHOTOGRAPHIC AIDE 3 mLs $Given 10/14/2024 3:20 PM PHOTOGRAPHIC AIDE 3 mLs sodium chloride (PF) 0.9% PF flush 3 mL 3 mL, Intracatheter, EVERY 8 HOURS, First dose on Sun10/15/24 at 0600, to lock peripheral IV dormant line $Given 10/15/2024 9:49 PM PHOTOGRAPHIC AIDE 3 mLs sodium chloride (PF) 0.9% PF [...] CDT 3 mLs $Given 10/25/2024 10:22 PM PHOTOGRAPHIC AIDE 3 mLs $Given 10/25/2024 8:34 PM PHOTOGRAPHIC AIDE 3 mLs sodium chloride (PF) 0.9% PF flush 60 mL 60 mL, Intravenous, ONCE, On Sun10/14/24 at 1530, For 1 dose $Given 10/14/2024 3:39 PM PHOTOGRAPHIC AIDE 60 mLs sodium chloride 0.9 % infusion at 100 mL/hr, Intravenous, CONTINUOUS, Starting on Sun10/23/24 at 1600, Until Sun10/24/24 at 0659 $New Bag 10/23/2024 10:43 PM PHOTOGRAPHIC AIDE 100 mL/hr $New Bag 10/23/2024 3:59 PM PHOTOGRAPHIC AIDE 100 mL/hr sodium chloride 0.9 % infusion at 75 mL/hr, Intravenous, CONTINUOUS, Start once urine studies collected, Starting on Sun10/13/24 at 1600, Until Sun10/14/24 at 0253 $New Bag 10/13/2024 6:39 PM PHOTOGRAPHIC AIDE 75 mL/hr sodium chloride 0.9% BOLUS 1,000 mL Intravenous, 1,000 mL, ONCE, at 2,000 mL/hr, Administer over 30 Minutes, On Sun10/12/24 at 1050, For 1 dose $New Bag 10/12/2024 11:08 AM PHOTOGRAPHIC AIDE 1,000 mLs 2000 mL/hr sodium chloride 0.9% BOLUS 1,000 mL Intravenous, 1,000 mL, ONCE, at 500 mL/hr, Administer over 2 Hours, On Teresa 10/23/24 at 1300, For 1 dose $New Bag 10/23/2024 2:12 PM PHOTOGRAPHIC AIDE 1,000 mLs 500 mL/hr sodium chloride for CT scan flush use Intravenous, 100 mL, ONCE, On Sun10/12/24 at 1210, For 1 dose, This entry is for use by Radiology to intermittently used as a flush in patients receiving a CT scan. $Given 10/12/2024 12:12 PM PHOTOGRAPHIC AIDE 64 mLs tiZANidine (ZANAFLEX) tablet 2-4 mg 2-4 mg, Oral, EVERY 8 HOURS PRN, muscle spasms, Starting on Sun10/13/24 at 1548 $Given 10/28/2024 9:10 PM CDT 4 mg $Given 10/28/2024 10:53 AM CDT 4 mg $Given 10/23/2024 9:21 PM PHOTOGRAPHIC AIDE 2 mg vancomycin (VANCOCIN) 1,750 mg in [...] Acquired Pneumonia $New Bag 10/14/2024 1:59 PM PHOTOGRAPHIC AIDE 1,750 mg documented in this encounter Active [...] Magno Dawson RN)1720 ($Given - Provider: Anthony Huang RN - Comment: [id number]) 0944 (Not Given - Provider: Rich Ko RN - Reason: Order parameters not met)1507 ($Given - Provider: Rich Ko RN - Comment: given when eating)1721 ($Given - Provider: Rich Ko RN - Comment: [id number]) 1009 (Not Given - Provider: Thomas Noland [...] dose. 2220 (Not Given - Provider: Anthony Huagn RN - Reason: Order parameters not met [...] Magno Dawson RN)2227 ($Given - Provider: Anthony Haung, RN) 0939 ($Given - Provider: Rich Ko [...] Out COVID-19 10/12/2024 10/12/2024 10/12/2024 11:31 AM PHOTOGRAPHIC AIDE documented as of this encounter Care Teams Web Site Project Manager Relationship Specialty [place] [address] [place] [address] PCP - General Family Practice 11/21/16 Stephie Mahoney MD [address] [place] [phone] Endocrinology, Diabetes, and Metabolism 04/22/21 Federica Foster RN [address] [place] [address] [phone] Boiler Tube Reamer Diabetes Education 04/22/[address] [place] [id number] Boiler Tube Reamer Nutrition 04/22/21 Stephie Mahoney MD [address] [place] [id number] Assigned Endocrinology Provider 05/08/21 Olga Garcia, RN Specialty Stereotyper INTERNAL MEDICINE - ENDOCRINOLOGY, DIABETES & METABOLISM 09/29/22 Junior Chavira MD [address] [place] [id number] Cardiovascular Disease 05/29/24 [place] [address] [place] [address] Assigned PCP 07/12/24 Junior Chavira MD [address] [facility] [address] [place] [address] Assigned Heart and Vascular Provider 08/11/24 documented as of this encounter
--- OUTSIDE RECORDS SUMMARY | 2024-12-12 00:25 | XMS_ITS | Encounter Summary ---
Author Organization [facility] Address [address] [place] [address]. [place] [address] Care Team Providers Care Second Grade Teacher Name Role Phone Wilber Vidales MD Primary Care Provider [phone] Stephie Mahoney MD Unavailable [phone] Federica Foster RN Unavailable [phone] Unavailable [phone] Stephie Mahoney MD Unavailable [phone] Olga Garcia RN Unavailable [phone] Junior Chavira MD Unavailable [phone] Shantel Walker MD Unavailable [phone] Junior Chavira MD Unavailable [phone] Coni Dhaliwal CNP Unavailable [phone] Anel Long NP Unavailable [phone] Reason for Visit * Reason Onset Date Comments Direct Oral Anticoagulant 11/05/2024 Encounter Details Date Type Department Care Team (Latest Contact Info) Description 11/05/2024 Documentation Only [facility] [address] [place] [address] Kevin Marie, RN Direct Oral [...] PHQ-2 Score 0 [facility]/23[facility]2023 [facility] Answer [...] AM CDT Legal 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 Kevin Marie RN 11/05/2024 documented in this encounter Plan of Treatment Upcoming Encounters Date Type Department Care Team (Late st Contact Info) Description 12/17/2024 9:30 AM CDT Lab [facility] [address] [place] [phone] 12/23/2024 4:00 PM CDT Office Visit [facility] [address] [phone] Cyrus Aleman MD [address] [place] [phone] 01/27/2025 10:00 AM CDT Office Visit [facility] Neurology [facility] [address] [place] [address] [address] [place] [phone] Anel Long, POWERHOUSE ATTENDANT [address] [place], [place] [phone] Coni Dhaliwal, COREY [address] [facility] [address] [place], [place] [phone] 04/14/2025 11:15 AM CDT Office Visit [facility] Heart [facility] [address] [facility] [address] [place] [phone] Inessa Esteves DO [address] [place], [place] [phone] 06/05/2025 12:30 PM CDT Office Visit [facility] Endocrinology [facility] [address] [facility] 3rd [place] [phone] Stephie Mahoney MD [address] [place] [address] [address] [place], [place] [phone] 11/13/2025 11:00 AM CDT Virtual Visit [facility] [address] [place] [phone] Stephie Mahoney MD [address] [phone] documented as of this encounter Visit Diagnoses Not on filedocumented in this encounter Care Teams Second Grade Teacher Relationship Specialty [place] [address] [place] [address] PCP - General Family Practice 11/21/16 Stephie Mahoney MD [address] [place] [address] [phone] Endocrinology, Diabetes, and Metabolism 04/22/21 Federica Foster RN [address] [place] [address] [phone] Branch Assistant Diabetes Education 04/22/21 Tova Welch, RD [address] [place] [phone] Branch Assistant Nutrition 04/22/21 Stephie Mahoney MD [address] [place] [id number] Assigned Endocrinology Provider 05/08/21 Olga Garcia, RN Specialty Direct Chill Caster INTERNAL MEDICINE - ENDOCRINOLOGY, DIABETES & METABOLISM 09/29/22 Junior Chavira MD [address] [place] [id number] Cardiovascular Disease 05/29/24 [place] [address] [place] [address] Assigned PCP 07/12/24 Junior Chavira MD [address] [place] [address] Assigned Heart and Vascular Provider 08/11/24 Coni Dhaliwal, COREY [address] [place] [id number] Nurse Practitioner Psychiatry & Neurology Vascular Neurology 11/04/24 Anel Long NP [address] [place] [id number] Nurse Practitioner Psychiatry & Neurology Vascular Neurology 11/04/24 documented as of this encounter
--- OUTSIDE RECORDS SUMMARY | 2024-12-12 00:25 | XMS_ITS | Encounter Summary ---
Author Organization [facility] Address [address] [place] [address]. [place] [address] Care Team Providers Care Box Feeder Name Role Phone Wilber Vidales MD Primary Care Provider [phone] Stephie Mahoney MD Unavailable [phone] Federica Foster RN Unavailable [phone] Unavailable [phone] Stephie Mahoney MD Unavailable [phone] Olga Garcia RN Unavailable [phone] Junior Chavira MD Unavailable [phone] Shantel Walker MD Unavailable [phone] Junior Chavira MD Unavailable [phone] Reason for Referral * Diagnostic Imaging CT Scan (Routine) - Closed Specialty Diagnoses / Procedures Referred By Contac t Referred To Contact Radiology. Diagnoses Pneumonia of both lower lobes due to infectious organism Procedures CT Chest w Contrast Angel Balbuena MD [address] [place] [address] Phone: tel: fax: [facility] [address] [place] [address] Phone: tel: fax: Referral ID Status Reason Start Date Expiration Date Visits Re quested Visits Authorized [id number] Closed 10/28/2024 10/28/2025 1 1 Encounter Details Date Type Department Care Team (Late st Contact Info) Description 10/28/2024 Orders Only [facility] - Surgical Specialties Service Line [address] [place] [phone] Angel Blabuena MD [address] [place] [address] Pneumonia of both lower lobes due [...] Answer Date Recorded PHQ-2 Score 0 11/23/2023 [facility] - Occupational Stress Questionnaire Answer Date [...] in an abandoned building, in an overnight jail, or couch-surfing.) Yes 10/29/2024 Are you worried [...] CDT 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 [address] [place] [phone] Cyrus Aleman MD [address] [place] [address] 871815 01/27/2025 10:00 AM CDT Office Visit [facility] Neurology [facility] [place] [place] [address] [place] [address] 200 [place] [address] Anel Long NP 9438 [place], [place] 1537[address] Coni Dhaliwal, ROLL CUTTING OPERATOR [address] [address] 04/14/2025 11:15 AM CDT Office Visit [facility] Heart [facility] [address] [place] [phone] Inessa Esteves DO [address] [place] [address] 06/05/2025 12:30 PM CDT Office Visit [facility] Endocrinology Clinic [address] [place] [phone] Stephie Mahoney MD [address] [place] [address] 940615 11/13/2025 11:00 AM CDT Virtual Visit [facility] Endocrinology [address] [place] [phone] Stephie Mahoney MD [address] [place] [address] 847565 documented as of this encounter Results * [...] CDT EXAM: CT CHEST W CONTRAST LOCATION: [facility] DATE: 11/28/2024 INDICATION: trapped lung COMPARISON: [...] 12/01/2024 EXAM: CT CHEST W CONTRAST LOCATION: [facility] DATE: 11/28/2024 INDICATION: trapped lung COMPARISON: [...] organism documented in this encounter Care Teams Box Feeder Relationship Specialty [place] [address] [place] [address] PCP - General Family Practice 11/21/16 Stephie Mahoney MD [address] [place] [address] [phone] Endocrinology, Diabetes, and Metabolism 04/22/21 Federica Foster, RN [address] [place] [address] [phone] Mineral Surveying Technician Diabetes Education 04/22/[address] [place] [address] [phone] Mineral Surveying Technician Nutrition 04/22/21 Stephie Mahoney MD [address] [place] [address] [phone] Assigned Endocrinology Provider 05/08/21 Olga Garcia RN Specialty Imaging Technologist INTERNAL MEDICINE - ENDOCRINOLOGY, DIABETES & METABOLISM 09/29/22 Junior Chavira MD [address] [place] [address] Cardiovascular Disease 05/29/24 [place] [address] [place] [address] Assigned PCP 07/12/24 Junior Chavira MD [address] [place] [address] Assigned Heart and Vascular Provider 08/11/24 documented as of this encounter
--- OUTSIDE RECORDS SUMMARY | 2024-12-12 00:25 | XMS_ITS | Encounter Summary ---
Author Organization [place] Address [address] [place] [address]. [place] [address] Care Team Providers Care Frontload Driver Name Role Phone Wilber Vidales MD Primary Care Provider [phone] Stephie Mahoney MD Unavailable [phone] Federica Foster RN Unavailable [phone] Unavailable [phone] Stephie Mahoney MD Unavailable [phone] Olga Garcia RN Unavailable [phone] Junior Chavira MD Unavailable [phone] Shantel Walker MD Unavailable [phone] Junior Chavira MD Unavailable [phone] Coni Dhaliwal CNP Unavailable [phone] Anel Long NP Unavailable [phone] Angel Balbuena MD Unavailable [phone] Encounter Details Date Type Department Care Team (Late st Contact Info) Description 10/20/2024 [facility] Endocrinology Clinic [place] [id number] [facility] 3rd [place] [address] Dinah Velazquez Social History Tobacco [...] Answer Date Recorded PHQ-2 Score 0 11/23/2023 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 Gender Identity Male 03/03/2019 9:24 PM CDT Sexual Orientation Straight 03/03/2019 9: 24 PM CDT documented as of this encounter Plan of Treatment Upcoming Encounters Date Type Department Care Team (Late st Contact Info) Description 12/17/2024 9:30 AM CDT [address] [address] 12/23/2024 4:00 PM CDT Office Visit [facility] [address] [facility] [address] [place] [phone] Cyrus Aleman MD 909 [place] [address] 01/27/2025 10:00 AM CDT Office Visit [facility] Neurology [facility] [address] [facility] [address] [place] [phone] Anel Long, HARNESS PLACER [address] [place] [place] [address] Coni Dhaliwal, GLASS GLAZIER [address] [place] [phone] 04/14/2025 11:15 AM CDT Office Visit [facility] Heart [facility] [address] [facility] [address] [place] [phone] Inessa Esteves DO [address] [place], [place] [address] 06/05/2025 12:30 PM CDT Office Visit [facility] Endocrinology Clinic [address] [address] Stephie Mahoney MD [address] [place] [address] 572445 11/13/2025 11:00 AM CDT Virtual Visit [facility] Endocrinology Clinic [address] [phone] Stephie Mahoney MD [address] [place] [address] 017085 documented as of this encounter Visit Diagnoses Not on filedocumented in this encounter Care Teams Frontload Driver Relationship Specialty [place] [address] [place] [address] PCP - General Family Practice 11/21/16 Stephie Mahoney MD [address] [place] [address] 200405 Endocrinology, Diabetes, and Metabolism 04/22/21 Federica Foster, RN [address] [place] [address] [phone] Security Analyst Diabetes Education 04/22/[address] [facility] [address] 006134 Security Analyst Nutrition 04/22/21 Stephie Mahoney MD [address] [place] [address] 339655 Assigned Endocrinology Provider 05/08/21 Olga Garcia, RN Specialty Programmer Operator Numerical Control INTERNAL MEDICINE - ENDOCRINOLOGY, DIABETES & METABOLISM 09/29/22 Junior Chavira MD [address] [place] 648325 Cardiovascular Disease 05/29/24 [place] [address] [place] [address] Assigned PCP 07/12/24 Junior Chavira MD [address] [place] [address] Assigned Heart and Vascular Provider 08/11/24 Coni Dhaliwal CNP [address] [place] [address] [place] [address] Nurse Practitioner Psychiatry & Neurology Vascular Neurology 11/04/24 Anel Long NP [address] [place] [address] Nurse Practitioner Psychiatry & Neurology Vascular Neurology 11/04/24 Angel Balbuena MD [address] [place], [place] 6527[address] Assigned Heart and Vascular Surgical Provider 12/10/24 documented as of this encounter
--- OUTSIDE RECORDS SUMMARY | 2024-12-12 00:25 | XMS_ITS | Encounter Summary ---
Author Organization [facility] Address [address] [place] [address]. [place] [address] Care Team Providers Care Neuro Psych Sales Specialist Name Role Phone Wilber Vidales MD Primary Care Provider [phone] Stephie Mahoney MD Unavailable [phone] Federica Foster RN Unavailable [phone] Unavailable [phone] Stephie Mahoney MD Unavailable [phone] Olga Garcia RN Unavailable [phone] Junior Chavira MD Unavailable [phone] Shantel Walker MD Unavailable [phone] Juniro Chavira MD Unavailable [phone] Coni Dhaliwal CNP Unavailable [phone] Anel Long NP Unavailable Reason for Visit * Reason Onset Date Comments Home Care/Hospice 11/07/2024 Encounter Details Date Type Department Care Team (Late st Contact Info) Description 11/07/2024 Telephone [facility] [address] [place] [address] [place] [address] [place] [address] Home Care/Hospice Social History Tobacco Use Types [...] Answer Date Recorded PHQ-2 Score 0 11/23/2023 [facility] - Occupational [...] an abandoned building, in an overnight senior living, or couch-surfing.) Yes 10/29/2024 Are you worried [...] CDT 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 [phone]. Wanting to confirm primary provider. Has not seen Dr. Vidalse since 07/10/22. Saw Dr. Walker once 06/16/24. Saw Maisha once. No hospital follow-up with [facility] scheduled. Advised Talita she needs to clarify with patient who his current primary provider is and if he is still seeing [facility] then he needs hospital follow-up. Stephanie Davila, RN documented in this encounter Plan of Treatment Upcoming Encounters Date Type Department Care Team (Late st Contact Info) Description 12/17/2024 9:30 AM CDT Lab [facility] [address] [place] [address] 12/23/2024 4:00 PM CDT Office Visit [facility] [address] [place] [phone] Cyrus Aleman MD [address] [place] [address] 345505 01/27/2025 10:00 AM CDT Office Visit [facility] Neurology [address] [place] [phone] Anel Long NP [address] [place] [address] Coni Dhaliwal CNP [address] [address] 04/14/2025 11:15 AM CDT Office Visit [facility] Heart [facility] [address] [place] [address] 140 [place] [phone] Inessa Esteves DO [address] [place] [address] 06/05/2025 12:30 PM CDT Office Visit [facility] Endocrinology Clinic [address] [phone] Stephie Mahoney MD [address] [place] [address] 543425 11/13/2025 11:00 AM CDT Virtual Visit [facility] Endocrinology [address] [address] Stephie Mahoney MD [address] [place] [address] 307875 documented as of this encounter Visit Diagnoses Not on filedocumented in this encounter Care Teams Neuro Psych Sales Specialist Relationship Specialty [place] [address] [facility] [place] [address] PCP - General Family Practice 11/21/16 Stephie Mahoney MD [address] [place] [address] 065915 Endocrinology, Diabetes, and Metabolism 04/22/21 Federica Foster, RN [address] [place] [address] [phone] Assembler Metal Furniture Diabetes Education 04/22/[address] [place] [address] Assembler Metal Furniture Nutrition 04/22/21 Stephie Mahoney MD [address] [place] [address] 118355 Assigned Endocrinology Provider 05/08/21 Olga Garcia, RN Specialty Waiter/Waitress Informal INTERNAL MEDICINE - ENDOCRINOLOGY, DIABETES & METABOLISM 09/29/22 Junior Chavira MD [address] [place] [address] Cardiovascular Disease 05/29/24 [place] [address] [place] [address] Assigned PCP 07/12/24 Junior Chavira MD [address] [place] 838365 Assigned Heart and Vascular Provider 08/11/24 Coni Dhaliwal, COREY [address] [place] 6[address] Nurse Practitioner Psychiatry & Neurology Vascular Neurology 11/04/24 Anel Long, PARK GUIDE [address] [place] 968885 Nurse Practitioner Psychiatry & Neurology Vascular Neurology 11/04/24 documented as of this encounter
--- OUTSIDE RECORDS SUMMARY | 2024-12-12 00:25 | XMS_ITS | Encounter Summary ---
Author Organization [place] [facility] Address [address] [place] [address]. [place] [address] Care Team Providers Care Licensed Massage Therapist Name Role Phone Wilber Vidales MD Primary Care Provider [phone] Stephie Mahoney MD Unavailable [phone] Federica Foster RN Unavailable [phone] Unavailable Stephie Mahoney MD Unavailable [phone] Olga Garcia RN Unavailable [phone] Junior Chavira MD Unavailable [phone] Shantel Walker MD Unavailable [phone] Junior Chavira MD Unavailable [phone] Coni Dhaliwal DRILL SERGEANT Unavailable [phone] Anel Long NP Unavailable [phone] Reason for Visit * Reason Onset Date Comments Refill Request 11/14/2024 Encounter Details Date Type Department Care Team (Late st Contact Info) Description [facility] [address] 3rd [place] [address] Olga Garcia, RN Refill Request [...] Date Recorded PHQ-2 Score 0 11/14/2024 [facility] Questionnaire Answer [...] Contact Info) Description 12/17/2024 9:30 AM CDT [facility] [address] [place] [address] 12/23/2024 4:00 PM CDT Office Visit [facility] [address] [facility] [address] [place] [phone] Cyrus Aleman MD [address] [place] [address] 01/27/2025 10:00 AM CDT Office Visit [facility] Neurology Clinic [place] [address] [facility] 200 [place] [phone] Anel Long, POTTER OR CERAMIC ARTIST [address] [place], [place] 65[address] Coni Dhaliwal, COREY 4245 [facility] 450 [place], [place] 406845 04/14/2025 11:15 AM CDT Office Visit [facility] [address] [facility] [address] [place] [phone] Inessa Esteves DO [address] [facility] [address] [place], [place] 58[address] 06/05/2025 12:30 PM CDT Office Visit [facility] Endocrinology Clinic [address] [phone] Stephie Mahoney MD [address] 300215 11/13/2025 11:00 AM CDT Virtual Visit [facility] Endocrinology Clinic [address] [phone] Stephie Mahoney MD [address] [phone] documented as of this encounter Visit Diagnoses Diagnosis Type 1 diabetes mellitus with hyperglycemia (H) Type I (juvenile type) diabetes mellitus without mention of complication, not stated as uncontrolled documented in this encounter Care Teams Licensed Massage Therapist Relationship Specialty [place] [address] [address] [place] [address] PCP - General Family Practice 11/21/16 Stephie Mahoney MD [address] [place] [address] Endocrinology, Diabetes, and Metabolism 04/22/21 Federica Foster RN [address] [place] [address] Gallery Or Museum Attendant Diabetes Education 04/22/[address] [place] [address] Gallery Or Museum Attendant Nutrition 04/22/21 Stephie Mahoney MD [address] [place] [address] Assigned Endocrinology Provider 05/08/21 Olga Garcia RN Specialty Straight Knife Machine Cutter INTERNAL MEDICINE - ENDOCRINOLOGY, DIABETES & METABOLISM 09/29/22 Junior Chavira MD [address] [place] [id number] Cardiovascular Disease 05/29/24 [place] [address] [place] [address] Assigned PCP 07/12/24 Junior Chavira MD [address] [place] [id number] Assigned Heart and Vascular Provider 08/11/24 Coni Dhaliwal, DRILL SERGEANT [address] [place] [id number] Nurse Practitioner Psychiatry & Neurology Vascular Neurology 11/04/24 Anel Long NP [address] [place] [id number] Nurse Practitioner Psychiatry & Neurology Vascular Neurology 11/04/24 documented as of this encounter
--- OUTSIDE RECORDS SUMMARY | 2024-12-12 00:25 | XMS_ITS | Encounter Summary ---
Author Organization [facility] Address [address] [place] [address]. 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 Name Role Phone Wilber Vidales MD Primary Care Provider [phone] Stephie Mahoney MD Unavailable [phone] Federica Foster RN Unavailable [phone] Unavailable [phone] Stephie Mahoney MD Unavailable [phone] Olag Garcia RN Unavailable [phone] Junior Chavira MD Unavailable [phone] Shantel Walker MD Unavailable [phone] Junior Chavira MD Unavailable [phone] Coni Dhaliwal CNP Unavailable [phone] Anel Long NP Unavailable [phone] Reason for Visit * Reason Comments RECHECK Encounter Details Date Type Department Care Team (Latest Contact Info) Description 11/14/2024 11:30 AM CDT Virtual Visit [facility] Endocrinology Clinic [place] [address] [facility] 3rd [place] [address] Stephie Mahoney MD [address] [place] [address] [address] [place] [address] Type 1 diabetes mellitus with hyperglycemia (H) [...] Answer Date Recorded PHQ-2 Score 0 11/14/2024 [facility] of Occupat ional [...] AM CDT 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 Outcome for 11/12/24 10:25 AM: Data obtained via [employer] and [employer] website Scott Scott MA * Stephie Mahoney MD - 11/14/2024 11:30 AM CDT Video-Visit Details Type of service: Video Visit Virtual visit conducted by [employer]. Originating Location (pt. Location): HOME Distant Location (provider location): Off site Mode of Communication: Video Conference via [employer] Physician has received verbal consent for a [...] antiislet antibodies. The patient was started on [id number] units daily as well as a continuous [...] 10/12/24 Omnipod BASAL RATES and times: Continuous (4635-9326: 0.9 units/hour CARB RATIO and times: 0037-0893: 1 unit for 10g of carbohydrates Corection Factor (Sensitivity) and times: 9167-1165: 1 unit lowers BG by 40 mg/dL [...] None Other Topics Concern Parent/sibling w/ CABG, AL or angioplasty before 65F 55M? No Social [...] Session: 30 min Stress: Patient Declined (07/12/2023) [place] [place] [facility] [employer] [facility] - Occupational Stress Questionnaire Feeling of Stress : Patient declined Social Connections: Socially Integrated (07/12/2023) Social Connection and Isolation Panel [NHANES] Frequency of Communication with Friends and Family: Twice a week Frequency of Social Gatherings with Friends and Family: Once a week Attends Caodaism Services: More than 4 times per year [...] - 99 mg/dL Final Hold Specimen 10/31/2024 [facility] Final GLUCOSE BY METER POCT 10/31/2024 192 [...] 11/14/2024 11:30 AM CDT Current patient location: CT Is the patient currently in the state of CT? YES Visit mode: VIDEO If the visit is dropped, the patient can be reconnected by:VIDEO VISIT: Text to cell phone: Telephone Information: Will anyone else be joining the visit? NO (If patient encounters technical issues they should call [phone] :[phone]) Are changes needed to the allergy or medication list? No Are refills needed on medications prescribed by this physician? NO Rooming Documentation: Questionnaire(s) completed Reason for visit: RECHECK Rashmi Rocha VVF documented in this encounter Plan of Treatment Upcoming Encounters Date Type Department Care Team (Late st Contact Info) Description 12/17/2024 9:[address] [facility] [address] [place] [address] 12/23/2024 4:00 PM CDT Office Visit [facility] [address] [facility] [address] [place] [phone] Cyrus Aleman MD [address] [place] [address] [id number] 01/27/2025 10:00 AM CDT Office Visit [facility] Neurology [facility] [address] [place] [address] [address] [place] [phone] Anel Long, STRUCTURAL STEEL ERECTION SUPERVISOR [address] [place], [place] [address] Coni Dhaliwal CNP [address] [id number] 04/14/2025 11:15 AM CDT Office Visit [facility] Heart [facility] [address] [facility] [address] [place] [phone] Inessa Esteves DO [address] [place], [place] [phone] 06/05/2025 12:30 PM CDT Office Visit [facility] Endocrinology [facility] [address] [place] [phone] Stephie Mahoney MD [address] [place] [id number] 11/13/2025 11:00 AM CDT Virtual Visit [facility]ology [facility] [place] [id number] [facility] 3rd [place] [phone] Stephie Mahoney MD [address] [place] [address] [id number] documented as of this encounter Procedures Procedure Name Priority Date/Time Associated Diagnosis Comments ME GLUCOSE MONITOR, 72 HOUR, PHYS INTERP & REPORT Routine 11/14/2024 8:01 PM CDT Type 1 diabetes mellitus with hyperglycemia (H) documented in this encounter Visit Diagnoses Diagnosis Type 1 diabetes mellitus with hyperglycemia (H)- Primary Type I (juvenile type) diabetes mellitus without mention of complication, not stated as uncontrolled Elevated glucose Other abnormal glucose documented in this encounter Care Teams Hydroelectric Plant Electrical Engineer Relationship Specialty [place] [address] [place] [address] PCP - General Family Practice 11/21/16 Stephie Mahoney MD [address] [place] [address] Endocrinology, Diabetes, and Metabolism 04/22/21 Federica Foster, RN [address] [place] [address] Criminal Judge Diabetes Education 04/22/[address] [place] [address] Criminal Judge Nutrition 04/22/21 Stephie Mahoney MD [address] [place] [address] Assigned Endocrinology Provider 05/08/21 Olga Garcia, RN Specialty Seat Pack Inspector INTERNAL MEDICINE - ENDOCRINOLOGY, DIABETES & METABOLISM 09/29/22 Junior Chavira MD [address] [place] [id number] Cardiovascular Disease 05/29/24 [place] [address] [place] [address] Assigned PCP 07/12/24 Junior Chavira MD [address] [place] [id number] Assigned Heart and Vascular Provider 08/11/24 Coni Dhaliwal, CLINICAL PROGRAM MANAGER [address] [place] [id number] Nurse Practitioner Psychiatry & Neurology Vascular Neurology 11/04/24 Anel Long, STRUCTURAL STEEL ERECTION SUPERVISOR [address] [place] [address] Nurse Practitioner Psychiatry & Neurology Vascular Neurology 11/04/24 documented as of this encounter
--- OUTSIDE RECORDS SUMMARY | 2024-12-12 00:26 | XMS_ITS | Encounter Summary ---
Author Organization [place] Address [address] [facility] [place] [address] Care Team Providers Care Kick Press Setter Name Role Phone Wilber Maharaj MD Primary Care Provider [phone] Stephie Mahoney MD Unavailable [phone] Federica Foster RN Unavailable [phone] Unavailable [phone] Stephie Mahoney MD Unavailable [phone] Olga Garcia RN Unavailable [phone] Junior Chavira MD Unavailable [phone] Shantel Walker MD Unavailable [phone] Junior Chavira MD Unavailable [phone] Coni Dhaliwal CNP Unavailable [phone] Anel Long NP Unavailable [phone] Reason for Referral * Consultation (Routine: Next available opening) - Pending Review Specialty Diagnoses / Procedures Referred By Contac t Referred To Contact Pulmonary Disease Diagnoses 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 of right middle cerebral artery (H) Finn Monroe, DO [address] [facility] [address] [facility] [address] [place] [address] Phone: tel: fax: Referral ID Status Reason Start Date Expiration Date V isits Requested Visits Authorized [id number] Pending Review 11/04/2024 11/04/2025 1 1 Question Answer Reason for Referral: Other My Clinical Question Is: pleural effusion Patient Scheduling Instructions: [facility] will call you to coordinate your care as prescribed by the provider. If you don t hear from a treasury representative within 2 business days, please call . Comments Please be aware that coverage of these services is subject to the terms and limitations of your health insurance plan. Call member services at your health plan with any benefit or coverage questions. [facility] will call you to coordinate your care as prescribed by the provider. If you don t hear from a treasury representative within 2 business days, please call . * Home Health Therapies & Aides (Routine: Next available opening) - Pending Review Specialty Diagnoses / Procedures Referred By Isa t Referred To Contact Diagnoses 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 of right middle cerebral artery (H) Finn Monroe DO [address] [facility] [address] [facility] [address] [place] [address] Phone: tel: fax: Referral ID Status Reason Start Date Expiration Date V [employer] Requested Visits Authorized [id number] Pending Review 11/04/2024 11/04/2025 1 1 Question Answer Reason for Referral: Senior Living, Physical Therapy, Speech Therapy Physical Therapy Eval and Treat for: Gait Training, Home Safety Assessment, Range of Motion, Therapeutic Exercise, Transfer Training Senior Living Eval and Treat for: Complex aftercare, Disease [...] 11/04/2024 Provider to follow patient WILBER MAHARAJ [[id number]] Comments Your provider has ordered home health services. If you have not been contacted within 2 days of your discharge please call the selected Home Care agency listed on your Discharge document. If a Home Care agency is NOT listed, please call [phone]. Reason for Visit * Auth/Cert (Routine) Specialty Diagnoses / Procedures Referred By Isa t Referred To Contact Rehabilitation [address] [address] Phone: tel: Referral ID Status Reason Start Date Expiration Date Visits Re quested Visits Authorized [id number] 1 1 Encounter Details Date Type Department Care Team (Latest Contact Info) Description 10/29/2024 2:37 PM CDT - 11/04/2024 1:16 PM CDT Hospital Encounter [place] [phone] Finn Monroe DO [address] [place], [place] [address] Noemi Barksdale MD [address] [id number] Ischemic stroke (H) (Primary Dx); Cerebrovascular accident [...] How often do you attend chur or presybeterian services? 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 Not formally evaluated by [facility] LIMITED RADIOLOGY TECHNICIAN. mEDICAL COURSE #Acute hypoxic respiratory failure, resolved [...] of malignancy given liver lesions. -PT, OT, LIMITED RADIOLOGY TECHNICIAN -Continue SENIOR SUPPORT ENGINEER Lamictal 300 mg bid for seizure prophylaxis -Continue SENIOR SUPPORT ENGINEER Apixaban 5mg bid -Continue Ezetimibe 10 mg [...] x1 month (10/16/24-11/13/24) -Toprol-XL 50mg bid -Continue SENIOR SUPPORT ENGINEER apixaban 5mg bid -Ziopatch after rehab to measure atrial fibrillation burden vs loop recorder #Insulin-dependent diabetes, Type I #Hyperglycemia, improved Patient historically has been on insulin pump as well as metformin. Patient normally manages insulin pump but has not been eating well or feeling well so this was stopped during hospital stay. [id number] on 10/26/24. -Hypoglycemia protocol -BG checks QID [...] -Lantus 30 units daily -> 27 units [id number] on 10/30 -> discontinued with restarting pump on 10/31 -Metformin 500 mg daily with supper -Endocrine consulted, appreciate help. See note on 11/03 for more recent details. Endocrine has signed off. Endocrine recommending keeping current settings for insulin pump on discharge and will not need any diabetes supplies as patient has them at home. -Continue SENIOR SUPPORT ENGINEER metformin 500 mg daily -Continue Novolog via [...] stable Na will need follow-up outpatient #Hypertension -SENIOR SUPPORT ENGINEER Lisinopril 30 mg daily #Hyperlipidemia -Continue SENIOR SUPPORT ENGINEER ezetimibe 10mg daily -Atorvastatin 40 mg every [...] need to administer manual injection.Disp- 10 each, [id number] Melatonin 10 MG TABS tablet Take 10 [...] of Visits Requested: 1 Adult Pulmonary Medicine [employer] Referral Standing Status: Future Referral Priority: Routine: [...] November 17 2024 at 7:15 am. Address [address] [facility] [address] PM & R You are scheduled to see Dr. Aleman on Dec 23 2024 at 3:15 pm. Address [address] [facility] [address] Imaging (CT) You are scheduled for a CT on November 28 2024 at 1:25 pm. Address [address] [facility] [address] Cardiology You are scheduled to see Dr. Esteves on April 14 2025 at 11:15 pm. Address [address] [facility] [address] Neurology You are scheduled to see Coni Dhaliwal NP on January 27 2025 at 9:45 am. Address [address] [facility] [address] Pulmonary You are scheduled to see on at . You will be called to schedule this appointment. Home Health Care: [facility] PH: [phone] F: [phone] or F: [phone] Intake--[email or web address] PT/OT/LIMITED RADIOLOGY TECHNICIAN/RN * Attachments The following attachments cannot be sent through Care Everywhere. * Stroke: Symptoms: General Info (Maldivian) * Stroke: Risk Factors: General Info (Maldivian) documented in this encounter Medications at Time [...] 10/12/24 Omnipod BASAL RATES and times: Continuous (5769-5739: 0.9 units/hour CARB RATIO and times: 7991-9334: 1 unit for 10g of carbohydrates Corection Factor (Sensitivity) and times: 3915-9250: 1 unit lowers BG by 40 mg/dL [...] goal(s). See goals on Care Plan in [facility] electronic health record for goal details. [...] 12 18 10 Cosigned by Gee Lawrence, LIMITED RADIOLOGY TECHNICIAN at 11/04/2024 4:33 PM CDT Associated attestation - Gee Lawrence LIMITED RADIOLOGY TECHNICIAN - 11/04/2024 4:33 PM CDT I, Gee Lawrence, MS [facility] LIMITED RADIOLOGY TECHNICIAN agree with the assessment and POC of Melissa Ferreira, LIMITED RADIOLOGY TECHNICIAN student. * Ashley Nix, PT - 11/04/2024 10:37 AM CDT Physical Therapy Discharge Summary Reason for therapy discharge: Discharged to home with home therapy. Progress towards therapy goal(s). See goals on Care Plan in [facility] electronic health record for goal details. [...] pt can discharge home after training today.Home PT/OT/LIMITED RADIOLOGY TECHNICIAN/RN referrals sent to the [facility] Care hub. [facility] able to accept. AVS updated. SW met with pt to complete IRF. SW reviewed home care with patient and . No questions for SW atthis time. will drive pt home. Home Health Care: [facility] PH: [phone] F: [phone] or F: [phone] Intake--[email or web address] PT/OT/LIMITED RADIOLOGY TECHNICIAN/RN IRF-[place] Pain Assessment Pain Effect on Sleep [...] at all [facility] Member Of Parliament LIZZYU/MONIKA/JUANI * Sylvia Blackman RN - 11/03/2024 [...] from the original note were not included. [facility] Acute Rehabilitation Unit Daily progress note [...] (score of 21 and below indicates deficit) LIMITED RADIOLOGY TECHNICIAN (11/03/24): Current Status: Hearing: WFL Vision: Glasses Communication: Motor speech, language intact Cognition: Mild cognitive impairment; mild memory and attention, moderate visuospatial, mild executive function Swallow: Regular solids/thin liquids (0). Not formally evaluated by [facility] LIMITED RADIOLOGY TECHNICIAN. 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 Impairment of ADL's: Impairment in strength, endurance, [...] of malignancy given liver lesions. -PT, OT, LIMITED RADIOLOGY TECHNICIAN -Continue SENIOR SUPPORT ENGINEER Lamictal 300 mg bid for seizure prophylaxis -Continue SENIOR SUPPORT ENGINEER Apixaban 5mg bid -Continue Ezetimibe 10 mg [...] x1 month (10/16/24-11/13/24) -Toprol-XL 50mg bid -Continue SENIOR SUPPORT ENGINEER apixaban 5mg bid -Ziopatch after rehab to measure atrial fibrillation burden vs loop recorder #Insulin-dependent diabetes, Type I #Hyperglycemia, improved Patient historically has been on insulin pump as well as metformin. Patient normally manages insulin pump but has not been eating well or feeling well so this was stopped during hospital stay. [id number] on 10/26/24. -Hypoglycemia protocol -BG checks QID [...] -Lantus 30 units daily -> 27 units [id number] on 10/30 -> discontinued with restarting pump on 10/31 -Metformin 500 mg daily with supper -Endocrine consulted, appreciate help. See note on 11/03 for more recent details. Endocrine has signed off. Endocrine recommending keeping current settings for insulin pump on discharge and will not need any diabetes supplies as patient has them at home. -Continue SENIOR SUPPORT ENGINEER metformin 500 mg daily -Continue Novolog via [...] this time -Repeat BMP on 11/04 #Hypertension -SENIOR SUPPORT ENGINEER Lisinopril 30 mg daily #Hyperlipidemia -Continue SENIOR SUPPORT ENGINEER ezetimibe 10mg daily -Atorvastatin 40 mg every [...] Roca DO Resident Physician [employer] PM&R PGY-2 [facility] 11/03/2024 Cosigned by Finn Monroe DO at [...] 24-48 hours for this). Plan/Recommendations: - Continue SENIOR SUPPORT ENGINEER metformin 500 mg po daily, JAVIER - [...] suppliesprescribed at discharge. Has follow up with [facility] Emilia Mahoney 12/2024 and will reach out [...] full consult note for complete diabetes history SENIOR SUPPORT ENGINEER Medication Regimen: - Metformin 500mg daily - [...] device/frequency/trends: Dexcom G7; reports infrequent lows Hypoglycemia SENIOR SUPPORT ENGINEER: - Frequency: infrequent recently - Severity: no history of severe unconscious lows - Awareness: intact [facility]: Stephie Mahoney MD ([facility] 05/30/24) Formal Diabetes Education/Educator: yes - Federica Foster ([facility] 09/04/24) Physical Exam: BP (!) 158/80 Pulse [...] Mavis Dang PA-C Inpatient Diabetes Service Pager: [phone] Available on vocera Plan discussed with patient, [...] urgent after-hours questions, page job code for business relations manager fellow: [phone] I spent a total [...] Appointment Info Signing Clinician's Name / Credentials (LIMITED RADIOLOGY TECHNICIAN) Yo Robledo MS, [facility]-LIMITED RADIOLOGY TECHNICIAN General Information Onset of Illness/Injury or Date [...] fall event on day of discharge from [facility]. Patient reportedly had his legs buckled when he was throwing away tissue paper and bedroom. 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 General Observations Pt not followed by acute LIMITED RADIOLOGY TECHNICIAN. Pt denied having any therapy services after [...] Impression Criteria for Skilled Therapeutic Interventions Met (LIMITED RADIOLOGY TECHNICIAN Eval) Yes, treatment indicated LIMITED RADIOLOGY TECHNICIAN Diagnosis Mild cognitive impairment Problem List (LIMITED RADIOLOGY TECHNICIAN) Hx of memory deficits per pt report Activity Limitations Related to Problem List (LIMITED RADIOLOGY TECHNICIAN) Increased assist/supervision with iADLs? Risks & Benefits of therapy have been explained evaluation/treatment results reviewed;care plan/treatment goals reviewed;participants voiced agreement with care plan;participants included;patient Clinical Impression Comments LIMITED RADIOLOGY TECHNICIAN: Motor speech, language intact. RBANS form A administered and interpreted. Pt with rght/dominant upper extremity tremors, figure copy and recall task sdoring per clinical judgment considering effect of tremor on writing. Coding task modified due to tremor, LIMITED RADIOLOGY TECHNICIAN wrotenumber per pt dictation. Prior to test, [...] normal limits. Given new right CVA, skilled LIMITED RADIOLOGY TECHNICIAN services indicated to instruct in therapeutic exercises and activities to promote cognitive function and to determine level of assist, effective strategies to promote safety and independencein home environment. LIMITED RADIOLOGY TECHNICIAN Total Evaluation Time Cognitive Performance Testing Minutes, per hour - includes time for administering test, interp results & prep report ([id number]) 60 LIMITED RADIOLOGY TECHNICIAN Goals Therapy Frequency (LIMITED RADIOLOGY TECHNICIAN Eval) 6 times/week LIMITED RADIOLOGY TECHNICIAN Predicted Duration/Target Date for Goal Attainment 11/09/24 LIMITED RADIOLOGY TECHNICIAN Goals LIMITED RADIOLOGY TECHNICIAN Goal 1;LIMITED RADIOLOGY TECHNICIAN Goal 2 LIMITED RADIOLOGY TECHNICIAN: Goal 1 With use of trained memory strategies, pt will recall moderately complex information with 90% accuracy. LIMITED RADIOLOGY TECHNICIAN: Goal 2 Patient will complete high level reasoning, problem solving tasks with 90% or greater independent accuracy. LIMITED RADIOLOGY TECHNICIAN Discharge Planning LIMITED RADIOLOGY TECHNICIAN Plan LIMITED RADIOLOGY TECHNICIAN: Edu in RBANS finding. Tx high level reasoning/problem solving. KELLIE as treatment. Intro memory strategies, long history of memory def. per pt report. LIMITED RADIOLOGY TECHNICIAN Time and Intention Timed Code Treatment Minutes 60 Total Session Time (sum of timed and untimed services) 60 LIMITED RADIOLOGY TECHNICIAN - Acute Rehab Center Time Individual Time (minutes) - LIMITED RADIOLOGY TECHNICIAN 60 ARC Total Session Time (minutes) - LIMITED RADIOLOGY TECHNICIAN 60 ARC Daily Total Session Time LIMITED RADIOLOGY TECHNICIAN ARC Daily Total Session Time 60 ARC Daily Rehab Total Minutes 60 Repeatable Battery for the Assessment of Neuropsychological Status (RBANS) FORM A Immediate Memory Visuospatial/ Constructional Language Attention Delayed Memory Total Scale Index Score 87 72 101 82 86 81 Percentile Rank 19 3 53 12 18 10 LIMITED RADIOLOGY TECHNICIAN: Pt seen for administration of RBANS. Results are based on a mean of 100 and a standard deviation of +/- 15. Interpretation: Please see clinical impressions above. Face to Face Administration: 45 Scoring/Interpretation: 15 Total Time: 60 * Yudelka Del CastilloASHOK FIELD EVIDENCE TECHNICIAN - 11/02/2024 5:59 AM CDT Images from [...] left side, right handed Plan/Recommendations: - Continue SENIOR SUPPORT ENGINEER metformin 500 mg po daily, JAVIER Omnipod [...] 31.5 units yesterday. BG this am at [id number]=737. Reports he has a box of Omnipods [...] full consult note for complete diabetes history SENIOR SUPPORT ENGINEER Medication Regimen: - Metformin 500mg daily - [...] device/frequency/trends: Dexcom G7; reports infrequent lows Hypoglycemia SENIOR SUPPORT ENGINEER: - Frequency: infrequent recently - Severity: no history of severe unconscious lows - Awareness: intact [facility]: Stephie Mahoney MD ([facility] 05/30/24) Formal Diabetes Education/Educator: yes - Federica Foster ([facility] 09/04/24) Physical Exam: BP 117/66 (BP Location: [...] urgent after-hours questions, page job code for business relations manager fellow: [phone] I spent a total [...] left side, right handed Plan/Recommendations: - Continue SENIOR SUPPORT ENGINEER metformin 500 mg po daily, JAVIER Omnipod [...] hand Discussion: . BG this am at 4bf=982 Overnight 231 Reviewed with patient. Per patient, [...] closer to discharge. Outpatient Follow-up: Dr Mahoney, [facility] Please notify Inpatient Diabetes Service if [...] full consult note for complete diabetes history SENIOR SUPPORT ENGINEER Medication Regimen: - Metformin 500mg daily - [...] device/frequency/trends: Dexcom G7; reports infrequent lows Hypoglycemia SENIOR SUPPORT ENGINEER: - Frequency: infrequent recently - Severity: no history of severe unconscious lows - Awareness: intact Outpatient Diabetes [facility]: [facility]ology: Stephie Mahoney MD ([facility] 05/30/24) Formal Diabetes Education/Educator: yes - Federica Foster ([facility] 09/04/24) Physical Exam: BP 133/70 (BP Location: [...] 7 AM - 5 PM: [employer] HAYDE following the patient that day (see filed or incomplete progress notes/consult notes under Endocrinology) OR if uncertain of provider assignment: page job code [phone] 5 PM - 7 AM: First call after hours is to primary service. For urgent after-hours questions, page job code for business relations manager fellow: [phone] I spent a total [...] from the original note were not included. [facility] Acute Rehabilitation Unit Weekend Progress Note [...] a 63 year old male admitted to [facility] for acute inpatient rehabilitation. ARU Diagnosis: Stroke [...] the assessment and plan. Patt Miles MD [facility] PM&R PGY-2 11/01/2024 Pager #: [phone] Cosigned by Noemi Barksdale MD at 11/01/2024 [...] 60 minutes, 6 times/week, for 10 days LIMITED RADIOLOGY TECHNICIAN 60 minutes,6 times/week, for 10 days Education [...] from the original note were not included. 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 Impairment of ADL's: Impairment in strength, endurance, [...] of malignancy given liver lesions. -PT, OT, LIMITED RADIOLOGY TECHNICIAN -Continue SENIOR SUPPORT ENGINEER Lamictal 300 mg bid for seizure prophylaxis -Continue SENIOR SUPPORT ENGINEER Apixaban 5mg bid -Continue Ezetimibe 10 mg [...] x1 month (10/16/24-11/13/24) -Toprol-XL 50mg bid -Continue SENIOR SUPPORT ENGINEER apixaban 5mg bid -Ziopatch after rehab to measure atrial fibrillation burden vs loop recorder #Insulin-dependent diabetes, Type I #Hyperglycemia, improved Patient historically has been on insulin pump as well as metformin. Patient normally manages insulin pump but has not been eating well or feeling well so this was stopped during hospital stay. RuyN1j9.5 on 10/26/24. -Hypoglycemia protocol -BG checks QID [...] -Lantus 30 units daily -> 27 units r11hcesu on 10/30 -> discontinued with restarting pump [...] -Plans to recheck BMP on 11/03 #Hypertension -SENIOR SUPPORT ENGINEER Lisinopril 30 mg daily #Hyperlipidemia -Continue SENIOR SUPPORT ENGINEER ezetimibe 10mg daily -Atorvastatin 40 mg every evening #Liver lesions Noted on initial CT chest. Patient and state that they were aware of these but I cannot find previous abdominal imaging. MRI obtained on 10/14 confirmed lesions raising question of metastatic disease. Patient may require biopsy for this. Patient follows in [employer] system. -Consider assessing with primary care provider [...] Roca DO Resident Physician N PM&R PGY-2 [facility] 10/31/2024 Cosigned by Finn Monroe DO at 10/31/2024 3:45 PM CDT Associated attestation - Finn Monroe DO - 10/31/2024 3:45 PM CDT Physician Attestation I saw this patient with the resident and agree with the resident/fellow's findings and plan of careas documented in the note. Ermy findings: Please see A&P for additional details [...] Discontinue at 17:00 with pump placement -Continue SENIOR SUPPORT ENGINEER metformin 500 mg po daily, JAVIER OK [...] units at home. BG this am at [id number]=691 and then crept up to 192 at 7:35 am. Discharge Planning: (tentative) Medications: TBD, home on pump Test Claims: none Education: Needs to be assessed closer to discharge. Outpatient Follow-up: Dr Mahoney, [facility] Please notify Inpatient Diabetes Service if [...] full consult note for complete diabetes history SENIOR SUPPORT ENGINEER Medication Regimen: - Metformin 500mg daily - [...] device/frequency/trends: Dexcom G7; reports infrequent lows Hypoglycemia SENIOR SUPPORT ENGINEER: - Frequency: infrequent recently - Severity: no history of severe unconscious lows - Awareness: intact Outpatient [facility]: Stephie Mahoney MD ([facility] 05/30/24) Formal Diabetes Education/Educator: yes - Federica Foster ([facility] 09/04/24) Physical Exam: BP 135/76 Pulse 80 [...] concerns. Tova Levy PA-C Inpatient Diabetes Service [phone] Available by [employer] Date of Service: 10/31/2024 Plan discussed with patient, bedside RN in person, pharmacist in person, and primary team via [employer] and in person To contact Inpatient Diabetes Service: 7 AM - 5 PM: [employer] HAYDE following the patient that day (see filed or incomplete progress notes/consult notes under Endocrinology) OR if uncertain of provider assignment: page job code [phone] 5 PM - 7 AM: First call after hours is to primary service. For urgent after-hours questions, page job code for business relations manager fellow: [phone] I spent a total [...] () Living Environment Comments Pt lives in [place] in 2 story home with . Pt reports 2 EL without rail, flight of stairs up to bedroom and master bathroom with R ascending rail. Normal, flat bed. Walk-in shower with built-in shower chair, no grab bars by toilet or in shower. Laundry on main floor. 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 Son and daughter live locally ([place] and [facility]) and both work. 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 Has [...] fall event on day of discharge from [facility]. Patient reportedly had his legs buckled [...] Evaluation Time PT Eval, Low Complexity Minutes (41835) 35 Physical Therapy Goals PT Frequency 6x/week [...] dynamic activities to improve functional performance Minutes (15419) 10 Treatment Detail/Skilled Intervention Pt ambulates ~120 [...] 45 ARC Daily Rehab Total Minutes 45 Chair/ctv-qy-jgijp Transfer: standard height (18 inches) Complete independence for gpgys-dpx-ai-chair transfer no Describe performance SPT with FWW [...] Ascends/descends 6 [address] step with FWW and rAt, verbal cues for proximity 1 Step CARE [...] to bend/stoop from standing (consider using a alumni relations coordinator) Reason if not Attempted Safety concerns Road Inspector CARE Score 88 * Kristi Gibson, PT [...] & Beny Clemens 2011 Normative Data from [facility] [place], Choloo D, Alfonso M, Maribel E, Lacycijohn. 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 Master bathroom with walk in shower [...] in hospital where he bent down to picker feeder a towel and was unable to rise back up (no injuries).) Activity/Exercise/Self-Care Comment Pt reports ind with ADLs at baseline, ind with mobility as well. 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 Post-Acute Assessment Only Post-Acute Functional Assessment [...] Evaluation Time OT Eval, Low Complexity Minutes (95440) 10 OT Goals Therapy Frequency (OT) 6 [...] Gibson, PT - 10/30/2024 10:26 AM CDT [facility] Post-Acute Rehab PT: Discharge Plan: home with [...] from the original note were not included. [facility] Acute Rehabilitation Unit Daily progress note [...] PRN Zee Espana PA-C 650 mg at 10/29/24 1558 benzonatate [...] to rehab nursing and close management of glass driller. Impairment of ADL's: Impairment in strength, endurance, [...] of malignancy given liver lesions. -PT, OT, LIMITED RADIOLOGY TECHNICIAN -Continue SENIOR SUPPORT ENGINEER Lamictal 300 mg bid for seizure prophylaxis -Continue SENIOR SUPPORT ENGINEER apixaban 5mg bid -Continue Ezetimibe 10 mg [...] x1 month (10/16/24-11/13/24) -Toprol-XL 50mg bid -Continue SENIOR SUPPORT ENGINEER apixaban 5mg bid -Ziopatch after rehab to measure atrial fibrillation burden vs loop recorder #Insulin-dependent diabetes, Type I #Hyperglycemia, improved Patient historically has been on insulin pump as well as metformin. Patient normally manages insulin pump but has not been eating well or feeling well so this was stopped during hospital stay. [id number] on 10/26/24. -Glucose last 24 hours: 109-366 [...] 200-300 ml IVF over 3-4 hours #Hypertension -SENIOR SUPPORT ENGINEER Lisinopril 30 mg daily #Hyperlipidemia -Continue SENIOR SUPPORT ENGINEER ezetimibe 10mg daily -Atorvastatin 40 mg every [...] To, DO Resident Physician [facility] PM&R PGY-2 [facility] 10/30/2024 Cosigned by Finn Monroe DO at [...] from the original note were not included. [facility] Acute Rehabilitation Unit Admission History and [...] fall event on day of discharge from [facility]. Patient reportedly had his legs buckled [...] astrocytoma. 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 Currently, he [...] OT should also screen cognition and involve LIMITED RADIOLOGY TECHNICIAN if any major deficits are noted. Patient [...] Scale (Section GG Functional Ability and Goals; [facility]'s RESENDEZ Version 3.0 Manual effective 05.20.2019): PT [...] to safety 6 Independent Cognition Impaired Independent LIMITED RADIOLOGY TECHNICIAN Current Function Goals for Rehab Swallow Not [...] PAST MEDICAL HISTORY Reviewed and updated in [facility]. Past Medical History: Diagnosis Date Benign [...] (H) SURGICAL HISTORY Reviewed and updated in [facility]. Past Surgical History: Procedure Laterality Date APPENDECTOMY 1998 BIOPSY 2021 Basal cell carcinoma, Mohs surgery performed BRAIN SURGERY x2 COLONOSCOPY 2012 Polyps removed COLONOSCOPY N/A 05/14/2023 Procedure: Colonoscopy with polypectomy using jumbo forcep; Surgeon: Jazmyn Lord MD; Location: GI CV CORONARY ANGIOGRAM N/A 06/18/2019 Procedure: CV Coronary Angiogram; Surgeon: Juan Wu MD; Location: HEART CARDIAC LACQUER SPRAY BOOTH OPERATOR EYE SURGERY Lasik REPLACE VALVE AORTIC N/A 07/04/2019 Procedure: AORTIC VALVE REPLACEMENT WITH VALVE AORTIC PERIMOUNT MAGNA-EASE BIOPROSTH SIZE: 23MM ON PUMP OXYGENATOR AND CARLOS EDUARDO BY [facility]; Surgeon: Ej Haines MD; Location: OR TONSILLECTOMY UVULECTOMY 1993 SOCIAL HISTORY Reviewed and updated in [facility]. Marital Status: Living situation: Patient lives in a 2 story home with basement. 2 stairs to enter home and 10 stairs within home. There are rails inside home. 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 No Social [...] Session: 30 min Stress: Patient Declined (07/12/2023) [employer] [place] [employer] - Occupational Stress Questionnaire Feeling of Stress : Patient declined Social Connections: Socially Integrated (07/12/2023) Social Connection and Isolation Panel [NHANES] Frequency of Communication with Friends and Family: Twice a week Frequency of Social Gatherings with Friends and Family: Once a week Attends Amish Services: More than 4 times per year [...] No FAMILY HISTORY Reviewed and updated in [facility]. Family History Problem Relation Age of [...] 10/12/24 Omnipod BASAL RATES and times: Continuous (7996-9042: 0.9 units/hour CARB RATIO and times: 6556-8336: 1 unit for 10g of carbohydrates Corection Factor (Sensitivity) and times: 5009-0989: 1 unit lowers BG by 40 mg/dL [...] to rehab nursing and close management of glass driller. Impairment of ADL's: Impairment in strength, endurance, [...] of malignancy given liver lesions. -PT, OT, LIMITED RADIOLOGY TECHNICIAN -Continue SENIOR SUPPORT ENGINEER Lamictal 300 mg bid for seizure prophylaxis -Continue SENIOR SUPPORT ENGINEER apixaban 5mg bid -Continue Ezetimibe 10 mg [...] x1 month (10/16/24-11/13/24) -Toprol-XL 50mg bid -Continue SENIOR SUPPORT ENGINEER apixaban 5mg bid -Ziopatch after rehab to [...] osm 715. -Repeat BMP on 10/30 #Hypertension -SENIOR SUPPORT ENGINEER Lisinopril 30 mg daily #Hyperlipidemia -Continue SENIOR SUPPORT ENGINEER ezetimibe 10mg daily -Atorvastatin 40 mg every evening #Liver lesions Noted on initial CT chest. Patient and state that they were aware of these but I cannot find previous abdominal imaging. MRI obtained on 10/14 confirmed lesions raising question of metastatic disease. Patient may require biopsy for this. Patient follows in [employer] system. -Consider assessing with primary care provider [...] Resident Physician, PGY-2 Physical Medicine and Rehabilitation [facility] 10/29/2024 Cosigned by Noemi Barksdale MD at [...] this encounter Consult Notes * Michelle Riggins, FUEL HOUSE ATTENDANT - 10/30/2024 12:06 PM CDTAssociated Order(s): SOCIAL [...] Care Agent: In absence of HC, per [facility] policy, pt.... would be HCD agent Living [...] hospitalization: Appropriate and Pleasant. Cultural/Language/Spiritual Considerations: , Scientologist [employer], Maldivian Speaking Physical Health Reason for admission: Ischemic [...] anticoagulation. Provider Information Primary Care Physician:Wilber Maharaj [address] [place] [address] ARU HR ASSISTANT will schedule PCP apt at discharge. 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 Michelle Ely [facility], Acute Inpatient Rehab Unit [address] [place] [address], 5th [place] [address] * Alba Gasca PA - 10/30/2024 9:36 [...] insulin antibody not available on epic search SENIOR SUPPORT ENGINEER Medication Regimen: - Metformin 500mg daily - [...] device/frequency/trends: Dexcom G7; reports infrequent lows Hypoglycemia SENIOR SUPPORT ENGINEER: - Frequency: infrequent recently - Severity: no history of severe unconscious lows - Awareness: intact Outpatient Diabetes Provider: [facility] Endocrinology: Stephie Mahoney MD ([facility] 05/30/24) Formal Diabetes Education/Educator: yes - Federica Foster ([facility] 09/04/24) Complications: denies peripheral neuropathy, denies retinopathy [...] asked Diet/Lifestyle/Living Situation: lives with Ability to [place] Prescribed Regimen: no concerns Food/Housing Insecurity: no [...] Surgeon: Juan Wu MD; Location: HEART CARDIAC LACQUER SPRAY BOOTH OPERATOR EYE SURGERY Lasik REPLACE VALVE AORTIC N/A [...] coverage and correction. [facility]. [...] hung up the phone. Recommend transitioning to SENIOR SUPPORT ENGINEER insulin pump tomorrow. Will need to wait until ~24 hours after last glargine dose (anticipate [id number]). If settings as above are accurate recommend changing carb ratio to 1:5 or 1:6. Discharge Planning: (tentative) Medications: TBD. SENIOR SUPPORT ENGINEER insulin pump with setting adjustments Test Claims: none needed. Education: Needs to be assessed closer to discharge. Outpatient Follow-up: recommend [facility] Endocrinology (next scheduled 01/16/[address] Mahoney) Thank you for this consult. IDS will continue to follow. Please notify Inpatient Diabetes Service if changes are planned to steroids, nutrition, TPN/TF and anticipated procedures requiring prolonged NPO status. Alba Gasca PA-C Inpatient Diabetes Service Available on [employer] or Secure Chat To contact Inpatient Diabetes Service: 7 AM - 5 PM: Page the IDS HAYDE following the patient that day (see filed or incomplete progress notes/consult notes under Endocrinology) OR if uncertain of provider assignment: page job code [phone] 5 PM - 7 AM: First call after hours is to primary service. For urgent after-hours questions, page job code for business relations manager fellow: [phone] I spent a total [...] . Discussed all discharge information. He will picker feeder his mediations at [facility]. P: Discharge home. * Plan of Care - Melissa Ferreira - 11/04/2024 12:26 PM CDT [facility] Post-Acute Rehab LIMITED RADIOLOGY TECHNICIAN: Discharge Plan: home with . Ongoing LIMITED RADIOLOGY TECHNICIAN Precautions: fall Current Status: Hearing: WFL Vision: Glasses Communication: Motor speech, language intact Cognition: Mild cognitive impairment; mild memory and attention, moderate visuospatial, mild executive function Swallow: Regular solids/thin liquids (0). Not formally evaluated by ARU LIMITED RADIOLOGY TECHNICIAN. Assessment: Reviewed deductive reasoning task pt was [...] to ARU discharge Cosigned by Gee Lawrence LIMITED RADIOLOGY TECHNICIAN at 11/04/2024 4:38 PM CDT Associated attestation - Gee Lawrence SLP - 11/04/2024 4:38 PM CDT Gee Jameson, MS [facility] LIMITED RADIOLOGY TECHNICIAN agree with the assessment and POC of Melissa Ferreira, LIMITED RADIOLOGY TECHNICIAN student. * Plan of Care - Judith [...] Reveles OT - 11/04/2024 9:51 AM CDT [facility] Post-Acute Rehab OT: Discharge Plan: Home with [...] Mosley, PT - 11/03/2024 11:50 AM CDT [facility] Post-Acute Rehab PT: Discharge Plan: home with [...] Reveles, OT - 11/03/2024 10:17 AM CDT [facility] Post-Acute Rehab OT: Discharge Plan: Home with [...] * Plan of Care - Gee Lawrence LIMITED RADIOLOGY TECHNICIAN - 11/03/2024 9:59 AM CDT [facility] Post-Acute Rehab LIMITED RADIOLOGY TECHNICIAN: Discharge Plan: home with . Ongoing LIMITED RADIOLOGY TECHNICIAN Precautions: fall Current Status: Hearing: WFL Vision: Glasses Communication: Motor speech, language intact Cognition: Mild cognitive impairment; mild memory and attention, moderate visuospatial, mild executive function Swallow: Regular solids/thin liquids (0). Not formally evaluated by ARU LIMITED RADIOLOGY TECHNICIAN. Assessment: Patient engaged in KELLIE tasks as [...] insulin pump. * Plan of Care - Juana Saleem - 11/02/2024 1:52 PM CDT [facility] Post-Acute Rehab PT: Discharge Plan: home with [...] Robledo SLP - 11/02/2024 9:46 AM CDT [facility] Post-Acute Rehab LIMITED RADIOLOGY TECHNICIAN: Discharge Plan: home with . Ongoing LIMITED RADIOLOGY TECHNICIAN Precautions: fall Current Status: Hearing: WFL Vision: Glasses Communication: Motor speech, language intact Cognition: Mild cognitive impairment; mild memory and attention, moderate visuospatial, mild executive function Swallow: Regular solids/thin liquids (0). Not formally evaluated by ARU LIMITED RADIOLOGY TECHNICIAN. Assessment: Motor speech, language intact. RBANS form A administered and interpreted. Pt with rght/dominant upper extremity tremors, figure copy and recall task sdoring per clinical judgment considering effect of tremor on writing. Coding task modified due to tremor, LIMITED RADIOLOGY TECHNICIAN wrote number per pt dictation. Prior to [...] normal limits. Given new right CVA, skilled LIMITED RADIOLOGY TECHNICIAN services indicated to instruct in therapeutic exercises [...] Reveles, OT - 11/01/2024 8:04 AM CDT [facility] Post-Acute Rehab OT: Discharge Plan: Home with [...] Juana Saleem - 10/31/2024 4:34 PM CDT [facility] Post-Acute Rehab PT: Discharge Plan: home with [...] Reveles OT - 10/31/2024 11:01 AM CDT [facility] Post-Acute Rehab OT: Discharge Plan: Home with [...] cueing and up to min A. Recommend LIMITED RADIOLOGY TECHNICIAN involvement post stroke. Other Barriers to Discharge [...] Jimenez RN - 10/30/2024 10:25 PM CDT [id number] Goal Outcome Evaluation: Plan of Care Reviewed [...] * Pharmacy-Medication Regimen Review - Mamta Florentino [facility] - 10/30/2024 12:54 PM CDT Pharmacy Medication [...] 10/31/2024 8:33 AM CDT Associated attestation - iFnn Monroe DO - 10/31/2024 8:33 AM CDT I agree with all the recommendations detailed in this document. Finn Monroe, DO * Plan of Care - Ivonne Vences OTR - 10/30/2024 12:29 PM CDT [facility] Post-Acute Rehab OT: Discharge Plan: Home with [...] training. * Plan of Care - Ailyn Gonzalez RN - 10/30/2024 8:12 AM CDT Goal [...] PM CDT Admission medication history completed at [facility]. Please see Pharmacist Admission Medication History note from 10/12/2024. documented in this encounter Plan of Treatment Upcoming Encounters Date Type Department Care Team (Late st Contact Info) Description 12/17/2024 9:30 AM CDT Lab [facility] [address] [place] [phone] 12/23/2024 4:00 PM CDT Office Visit [facility] [address] [facility] [address] [place] [phone] Cyrus Aleman MD [address] [place] [id number] 01/27/2025 10:00 AM CDT Office Visit [facility] Neurology [facility] [address] [place] [address] [address] [place] [phone] Anel Long, PAINTER AND DECORATOR [address] [place], [place] [address] Coni Dhaliwal, FIELD EVIDENCE TECHNICIAN [address] [facility] [address] [place], [place] [phone] 04/14/2025 11:15 AM CDT Office Visit [facility] [address] [facility] [address] [place] [phone] Inessa Esteves, [address] [place], [place] [phone] 06/05/2025 12:30 PM CDT Office Visit [facility] Endocrinology [address] [phone] Stephie Mahoney MD [address] [place] [address] [address] [place] [address] 11/13/2025 11:00 AM CDT Virtual Visit [facility] Endocrinology [address] [place] [address] Stephie Mahoney MD [address] [facility] [address] [place] [address] Scheduled Referrals Name Type Priority Associated Diagnoses Orde r Schedule Home Care Referral Referral Routine: Next available opening 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 of right middle cerebral artery (H) Ordered: 11/04/2024 Adult Pulmonary Medicine [facility] Referral Referral Routine: Next available opening Cerebrovascular [...] POCT Final Re sult UR LABORATORY POC [facility] Acute Care Lab [address] [place] [address], [address] * Extra Purple Top Tube (11/04/2024 5:48 AM CDT) Hold Specimen JIC 11/04/2024 7:31 AM CDT UR LABORATORY Blood STRUCTURE OF RIGHT UPPER LIMB / Unknown Venipuncture / Unknown 11/04/2024 5:48 AM CDT 11/04/2024 6:22 AM CDT us Finn Monroe DO LAB - BLOOD ORDERABLES Fin al Result UR LABORATORY [facility] Acute Care Lab [address] [place] [address], [address] * (ABNORMAL) Basic metabolic panel (11/04/2024 [...] BLOOD ORDERABLES Final Res ult UR LABORATORY [facility] Acute Care Lab [address] [facility], [address] [place] [address], [facility] * (ABNORMAL) Glucose by meter (11/04/2024 5:11 AM CDT) GLUCOSE BY METER POCT 297(H) 70 - 99 mg/dL 11/04/2024 5:18 AM CDT UR LABORATORY POC Blood, Capillary BLOOD SPECIMEN / Unknown 11/04/2024 5:11 AM CDT 11/04/2024 5:18 AM CDT Finn Monroe DO LAB - BEAKER POCT Final Re sult UR LABORATORY POC [facility] Acute Care Lab [address] [facility], Room [address] [phone], [facility] * (ABNORMAL) Glucose by meter (11/04/2024 2:05 AM CDT) GLUCOSE BY METER POCT 319(H) 70 - 99 mg/dL 11/04/2024 2:13 AM CDT UR LABORATORY POC Blood, Capillary BLOOD SPECIMEN / Unknown 11/04/2024 2:05 AM CDT 11/04/2024 2:13 AM CDT Finn Monroe DO LAB - BEREJI POCT Final Re sult Performing Organization Address City/[facility]/ZIP Co de Phone Number UR LABORATORY POC [facility] Care Lab [address] [place] [address], Room [address] [phone], [facility] * (ABNORMAL) Glucose by meter (11/03/2024 9:03 PM CDT) GLUCOSE BY METER POCT 269(H) 70 - 99 mg/dL 11/03/2024 9:10 PM CDT UR LABORATORY POC Blood, arterial BLOOD SPECIMEN / Unknown 11/03/2024 9:03 PM CDT 11/03/2024 9:10 PM CDT Finn Monroe DO LAB - BEREJI POCT Final Re sult UR LABORATORY POC [facility] Acute Care Lab [address] [place] [address], [address] [phone], [facility] * (ABNORMAL) Glucose by meter (11/03/2024 5:10 PM CDT) GLUCOSE BY METER POCT 160(H) 70 - 99 mg/dL 11/03/2024 5:17 PM CDT UR LABORATORY POC Blood, arterial BLOOD SPECIMEN / Unknown 11/03/2024 5:10 PM CDT 11/03/2024 5:17 PM CDT Finn Monroe DO LAB - BEAKER POCT Final Re sult UR LABORATORY POC [facility] Acute Care Lab [address] [place] [address], Room [address] [phone], [facility] * (ABNORMAL) Glucose by meter (11/03/2024 12:05 PM CDT) GLUCOSE BY METER POCT 138(H) 70 - 99 mg/dL 11/03/2024 12:12 PM CDT UR LABORATORY POC Blood, Capillary BLOOD SPECIMEN / Unknown 11/03/2024 12:05 PM CDT 11/03/2024 12:12 PM CDT Finn Monroe DO LAB - BEAKER POCT Final Re sult Performing Organization Address City/[facility]/ZIP Co de Phone Number UR LABORATORY POC [facility] Lab [address] [place] [address], Room [address] [phone], [facility] * (ABNORMAL) Glucose by meter (11/03/2024 7:44 AM CDT) GLUCOSE BY METER POCT 153(H) 70 - 99 mg/dL 11/03/2024 7:52 AM CDT UR LABORATORY POC Blood, Capillary BLOOD SPECIMEN / Unknown 11/03/2024 7:44 AM CDT 11/03/2024 7:52 AM CDT Finn Monroe DO LAB - BEAKER POCT Final Re sult UR LABORATORY POC [facility] Acute Care Lab [address] [place] [address], Room [address] [phone] * Magnesium (11/03/2024 7:40 AM CDT) Magnesium 1.7 1.7 - 2.3 mg/dL 11/03/2024 8:55 AM CDT UR LABORATORY Blood STRUCTURE OF LEFT HAND / Unknown Venipuncture / Unknown 11/03/2024 7:40 AM CDT 11/03/2024 8:15 AM CDT Zee Espana PA-C LAB - BLOOD ORDERABLES F inal Result UR LABORATORY [facility] Acute Care Lab [address] [facility], [address] * (ABNORMAL) CBC with platelets (11/03/2024 [...] BLOOD ORDERABLES F inal Result UR LABORATORY [facility] Acute Care Lab [address] [facility], [address] [phone] * (ABNORMAL) Basic metabolic panel [...] BLOOD ORDERABLES F inal Result UR LABORATORY [facility] Acute Care Lab [address] [place] [address], Room [address] [phone] * (ABNORMAL) Glucose by meter (11/03/2024 5:36 AM CDT) GLUCOSE BY METER POCT 133(H) 70 - 99 mg/dL 11/03/2024 5:42 AM CDT UR LABORATORY POC Blood, Capillary BLOOD SPECIMEN / Unknown 11/03/2024 5:36 AM CDT 11/03/2024 5:42 AM CDT Finn Monroe DO LAB - BEAKER POCT Final Re sult UR LABORATORY POC [facility] Lab [address] [place] [address], Room [address] [phone] * (ABNORMAL) Glucose by meter (11/03/2024 1:58 AM CDT) GLUCOSE BY METER POCT 145(H) 70 - 99 mg/dL 11/03/2024 2:05 AM CDT UR LABORATORY POC Blood, Capillary BLOOD SPECIMEN / Unknown 11/03/2024 1:58 AM CDT 11/03/2024 2:05 AM CDT Finn Monroe DO LAB - BEAKER POCT Final Re sult UR LABORATORY POC [facility] Acute Care Lab [address] [place] [address], Room [address] [phone] * (ABNORMAL) Glucose by meter (11/02/2024 8:59 PM CDT) GLUCOSE BY METER POCT 119(H) 70 - 99 mg/dL 11/02/2024 9:06 PM CDT UR LABORATORY POC Blood, Capillary BLOOD SPECIMEN / Unknown 11/02/2024 8:59 PM CDT 11/02/2024 9:06 PM CDT Finn Mckenzie Spencertea LAB - BEAKER POCT Final Re sult UR LABORATORY POC [facility] Lab [address] [place] [address], Room [address] [phone], [facility] * (ABNORMAL) Glucose by meter (11/02/2024 5:06 PM CDT) GLUCOSE BY METER POCT 160(H) 70 - 99 mg/dL 11/02/2024 5:12 PM CDT UR LABORATORY POC Blood, Capillary BLOOD SPECIMEN / Unknown 11/02/2024 5:06 PM CDT 11/02/2024 5:12 PM CDT Finn Mckenzie Fer REYNOSO LAB - BEREJI POCT Final Re sult Performing Organization Address City/[facility]/ZIP Co de Phone Number UR LABORATORY POC [facility] Lab [address] [place] [address], [address] [phone], [facility] * (ABNORMAL) Glucose by meter (11/02/2024 12:16 PM CDT) GLUCOSE BY METER POCT 141(H) 70 - 99 mg/dL 11/02/2024 12:23 PM CDT UR LABORATORY POC Blood, Capillary BLOOD SPECIMEN / Unknown 11/02/2024 12:16 PM CDT 11/02/2024 12:23 PM CDT Finn Mckenzie Spencertea LAB - BEAKER POCT Final Re sult UR LABORATORY POC [facility] [address] [place] [address], Room [address] [phone], [facility] * (ABNORMAL) Glucose by meter (11/02/2024 7:26 AM CDT) GLUCOSE BY METER POCT 130(H) 70 - 99 mg/dL 11/02/2024 7:32 AM CDT UR LABORATORY POC Blood, Capillary BLOOD SPECIMEN / Unknown 11/02/2024 7:26 AM CDT 11/02/2024 7:32 AM CDT Finn Monroe DO LAB - BEREJI POCT Final Re sult UR LABORATORY POC [facility] [address] [place] [address], Room [place] [phone], [facility] * (ABNORMAL) Glucose by meter (11/02/2024 5:53 AM CDT) GLUCOSE BY METER POCT 127(H) 70 - 99 mg/dL 11/02/2024 6:00 AM CDT UR LABORATORY POC Blood, Capillary BLOOD SPECIMEN / Unknown 11/02/2024 5:53 AM CDT 11/02/2024 6:00 AM CDT Finn Monroe DO LAB - BEREJI POCT Final Re sult Performing Organization Address City/[facility]/ZIP Co de Phone Number UR LABORATORY POC [facility] [address] [place] [address], Room [place] [phone], [facility] * (ABNORMAL) Glucose by meter (11/02/2024 2:08 AM CDT) GLUCOSE BY METER POCT 164(H) 70 - 99 mg/dL 11/02/2024 2:15 AM CDT UR LABORATORY POC Blood, Capillary BLOOD SPECIMEN / Unknown 11/02/2024 2:08 AM CDT 11/02/2024 2:15 AM CDT Finn Monroe DO LAB - BEREJI POCT Final Re sult UR LABORATORY POC [facility] [address] [place] [address], Room [address] [phone], [facility] * (ABNORMAL) Glucose by meter (11/01/2024 9:54 PM CDT) GLUCOSE BY METER POCT 149(H) 70 - 99 mg/dL 11/01/2024 10:01 PM CDT UR LABORATORY POC Blood, Capillary BLOOD SPECIMEN / Unknown 11/01/2024 9:54 PM CDT 11/01/2024 10:01 PM CDT Finn Monroe DO LAB - BEAKER POCT Final Re sult UR LABORATORY POC [facility] [address] [place] [address], Room [place] [phone], [facility] * (ABNORMAL) Glucose by meter (11/01/2024 5:44 PM CDT) GLUCOSE BY METER POCT 123(H) 70 - 99 mg/dL 11/01/2024 5:51 PM CDT UR LABORATORY POC Blood, Capillary BLOOD SPECIMEN / Unknown 11/01/2024 5:44 PM CDT 11/01/2024 5:51 PM CDT Finn Monroe DO LAB - BEAKER POCT Final Re sult Performing Organization Address [facility]/ZIP Co de Phone Number UR LABORATORY POC [facility] [address] [place] [address], Room [address] [phone], [facility] * (ABNORMAL) Glucose by meter (11/01/2024 11:16 AM CDT) GLUCOSE BY METER POCT 156(H) 70 - 99 mg/dL 11/01/2024 11:26 AM CDT UR LABORATORY POC Blood, Capillary BLOOD SPECIMEN / Unknown 11/01/2024 11:16 AM CDT 11/01/2024 11:26 AM CDT Finn Monroe DO LAB - BEREJI POCT Final Re sult UR LABORATORY POC [facility] [address] [place] [address], Room [place] [phone] * (ABNORMAL) Glucose by meter (11/01/2024 8:00 AM CDT) GLUCOSE BY METER POCT 144(H) 70 - 99 mg/dL 11/01/2024 8:07 AM CDT UR LABORATORY POC Blood, Capillary BLOOD SPECIMEN / Unknown 11/01/2024 8:00 AM CDT 11/01/2024 8:07 AM CDT Finn Monroe DO LAB - BEAKER POCT Final Re sult UR LABORATORY POC [facility] [address] [place] [address], Room [place] [phone] * (ABNORMAL) Glucose by meter (11/01/2024 6:23 AM CDT) GLUCOSE BY METER POCT 136(H) 70 - 99 mg/dL 11/01/2024 6:30 AM CDT UR LABORATORY POC Blood, Capillary BLOOD SPECIMEN / Unknown 11/01/2024 6:23 AM CDT 11/01/2024 6:30 AM CDT Finn Monroe DO LAB - BEREJI POCT Final Re sult UR LABORATORY POC [facility] [address] [place] [address], Room [place] [phone] * (ABNORMAL) Glucose by meter (11/01/2024 2:05 AM CDT) GLUCOSE BY METER POCT 201(H) 70 - 99 mg/dL 11/01/2024 2:11 AM CDT UR LABORATORY POC Blood, Capillary BLOOD SPECIMEN / Unknown 11/01/2024 2:05 AM CDT 11/01/2024 2:11 AM CDT Finn Monroe DO LAB - BEAKER POCT Final Re sult UR LABORATORY POC [facility] [address] [place] [address], Room [place] [phone] * (ABNORMAL) Glucose by meter (10/31/2024 9:59 PM CDT) GLUCOSE BY METER POCT 124(H) 70 - 99 mg/dL 10/31/2024 10:06 PM CDT UR LABORATORY POC Blood, Capillary BLOOD SPECIMEN / Unknown 10/31/2024 9:59 PM CDT 10/31/2024 10:06 PM CDT Finn Spencernigelrisa REYNOSO LAB - BEREJI POCT Final Re sult Performing Organization Address City/[facility]/ZIP Co de Phone Number UR LABORATORY POC [facility] [address] [place] [address], Room [place] [phone] * (ABNORMAL) Glucose by meter (10/31/2024 5:09 PM CDT) GLUCOSE BY METER POCT 231(H) 70 - 99 mg/dL 10/31/2024 5:16 PM CDT UR LABORATORY POC Blood, Capillary BLOOD SPECIMEN / Unknown 10/31/2024 5:09 PM CDT 10/31/2024 5:16 PM CDT Finn Monroe DO LAB - BEAKER POCT Final Re sult UR LABORATORY POC [facility] [address] [place] [address], Room [address] [phone] * (ABNORMAL) Glucose by meter (10/31/2024 11:52 AM CDT) GLUCOSE BY METER POCT 224(H) 70 - 99 mg/dL 10/31/2024 11:59 AM CDT UR LABORATORY POC Comment:Dr/RN Notified Blood, Capillary BLOOD SPECIMEN / Unknown 10/31/2024 11:52 AM CDT 10/31/2024 11:59 AM CDT Finn Monroe DO LAB - BEAKER POCT Final Re sult UR LABORATORY POC [facility] [address] [facility], Room [place] [phone] * (ABNORMAL) Glucose by meter (10/31/2024 7:35 AM CDT) GLUCOSE BY METER POCT 192(H) 70 - 99 mg/dL 10/31/2024 7:45 AM CDT UR LABORATORY POC Blood, Capillary BLOOD SPECIMEN / Unknown 10/31/2024 7:35 AM CDT 10/31/2024 7:45 AM CDT Finn Monroe DO LAB - BEAKER POCT Final Re sult UR LABORATORY POC [facility] [address] [place] [address], Room [address] [phone] * Extra Purple Top Tube (10/31/2024 6:13 AM CDT) Hold Specimen JIC 10/31/2024 8:31 AM CDT UR LABORATORY Blood STRUCTURE OF RIGHT UPPER LIMB / Unknown Venipuncture / Unknown 10/31/2024 6:13 AM CDT 10/31/2024 7:24 AM CDT Finn Monroe DO LAB - BLOOD ORDERABLES Fin al Result UR LABORATORY [facility], Room [address] [phone] * (ABNORMAL) Basic metabolic panel [...] BLOOD ORDERABLES Final Res ult UR LABORATORY [facility] [address] [facility], [address] [place] [address], [facility] * (ABNORMAL) Glucose by meter (10/31/2024 5:59 AM CDT) GLUCOSE BY METER POCT 128(H) 70 - 99 mg/dL 10/31/2024 6:06 AM CDT UR LABORATORY POC Blood, Capillary BLOOD SPECIMEN / Unknown 10/31/2024 5:59 AM CDT 10/31/2024 6:06 AM CDT Finn Spencernigelrisa REYNOSO LAB - BEAKER POCT Final Re sult UR LABORATORY POC [facility] [address] [facility], Room [address] [phone], [facility] * (ABNORMAL) Glucose by meter (10/31/2024 2:21 AM CDT) GLUCOSE BY METER POCT 125(H) 70 - 99 mg/dL 10/31/2024 2:28 AM CDT UR LABORATORY POC Blood, Capillary BLOOD SPECIMEN / Unknown 10/31/2024 2:21 AM CDT 10/31/2024 2:28 AM CDT Finn Mckenzie Spencertea REYNOSO LAB - BEREJI POCT Final Re sult Performing Organization Address City/[facility]/ZIP Co de Phone Number UR LABORATORY POC [facility] [address] [place] [address], Room [address] [phone], [facility] * (ABNORMAL) Glucose by meter (10/30/2024 10:05 PM CDT) GLUCOSE BY METER POCT 147(H) 70 - 99 mg/dL 10/30/2024 10:12 PM CDT UR LABORATORY POC Blood, Capillary BLOOD SPECIMEN / Unknown 10/30/2024 10:05 PM CDT 10/30/2024 10:12 PM CDT Finn Mckenzie Spencertea LAB - BEAKER POCT Final Re sult UR LABORATORY POC [facility] [address] [place] [address], Room [address] [phone], [facility] * (ABNORMAL) Glucose by meter (10/30/2024 5:11 PM CDT) GLUCOSE BY METER POCT 168(H) 70 - 99 mg/dL 10/30/2024 5:17 PM CDT UR LABORATORY POC Blood, Capillary BLOOD SPECIMEN / Unknown 10/30/2024 5:11 PM CDT 10/30/2024 5:17 PM CDT Finn Spencernigelrisa REYNOSO LAB - BEAKER POCT Final Re sult UR LABORATORY POC [facility] [address] [place] [address], Room [place] [phone] [place] [address] * (ABNORMAL) Glucose by meter (10/30/2024 11:30 AM CDT) GLUCOSE BY METER POCT 366(H) 70 - 99 mg/dL 10/30/2024 11:37 AM CDT UR LABORATORY POC Blood, Capillary BLOOD SPECIMEN / Unknown 10/30/2024 11:30 AM CDT 10/30/2024 11:37 AM CDT Finn Spencertea DO LAB - BEAKER POCT Final Re sult Performing Organization Address City/[facility]/ZIP Co de Phone Number UR LABORATORY POC [facility] [address] [place] [address], Room [address] * Osmolality urine (10/30/2024 11:29 AM [...] URINE ORDERABLES Final Res ult UR LABORATORY [facility] [address] [facility], Room [place] [phone] * Sodium random urine (10/30/2024 [...] ORDERABLES Final Res ult Performing Organization Address City/[facility]/ZIP Co de Phone Number UR LABORATORY [facility] [address] [place] [address], Room [address] [phone] * (ABNORMAL) Glucose by meter (10/30/2024 11:04 AM CDT) GLUCOSE BY METER POCT 356(H) 70 - 99 mg/dL 10/30/2024 11:10 AM CDT UR LABORATORY POC Blood, Capillary BLOOD SPECIMEN / Unknown 10/30/2024 11:04 AM CDT 10/30/2024 11:10 AM CDT us Finn Monroe DO LAB - BEAKER POCT Final Re sult UR LABORATORY POC [facility] [address] [place] [address], Room [address] [phone] * (ABNORMAL) Glucose by meter (10/30/2024 7:57 AM CDT) GLUCOSE BY METER POCT 337(H) 70 - 99 mg/dL 10/30/2024 8:04 AM CDT UR LABORATORY POC Blood, Capillary BLOOD SPECIMEN / Unknown 10/30/2024 7:57 AM CDT 10/30/2024 8:04 AM CDT us Finn Spencertea DO LAB - BEAKER POCT Final Re sult Performing Organization Address City/[facility]/ZIP Co de Phone Number UR LABORATORY POC [facility] [address] [place] [address], Room [address] * (ABNORMAL) Glucose by meter (10/30/2024 7:15 AM CDT) GLUCOSE BY METER POCT 360(H) 70 - 99 mg/dL 10/30/2024 7:22 AM CDT UR LABORATORY POC Blood, Capillary BLOOD SPECIMEN / Unknown 10/30/2024 7:15 AM CDT 10/30/2024 7:22 AM CDT us Finn Rincon Fer DO LAB - BEAKER POCT Final Re sult Performing Organization Address City/[facility] Co de Phone Number UR LABORATORY POC [facility] [address] [place] [address], Room [address] * (ABNORMAL) Osmolality (10/30/2024 6:19 AM [...] BLOOD ORDERABLES Final Res ult UR LABORATORY [facility], Room [place] [phone] [place] [address] * Magnesium (10/30/2024 6:19 AM CDT) Magnesium 1.9 1.7 - 2.3 mg/dL 10/30/2024 7:17 AM CDT UR LABORATORY Blood STRUCTURE OF RIGHT UPPER LIMB / Unknown Venipuncture / Unknown 10/30/2024 6:19 AM CDT 10/30/2024 6:45 AM CDT Zee Espana PA-C LAB - BLOOD ORDERABLES F inal Result Performing Organization Address City/[facility]/ZIP Co de Phone Number UR LABORATORY [facility], Room [place] [phone] [place] [address] * (ABNORMAL) CBC with platelets (10/30/2024 6:19 [...] BLOOD ORDERABLES F inal Result UR LABORATORY [facility] [address] [facility], [address] [place] [address], [facility] * (ABNORMAL) Basic metabolic panel (10/30/2024 6:19 [...] BLOOD ORDERABLES F inal Result UR LABORATORY [facility] [address] [facility], Room [place] [phone], [facility] * (ABNORMAL) Glucose by meter (10/30/2024 6:12 AM CDT) GLUCOSE BY METER POCT 337(H) 70 - 99 mg/dL 10/30/2024 6:18 AM CDT UR LABORATORY POC Blood, Capillary BLOOD SPECIMEN / Unknown 10/30/2024 6:12 AM CDT 10/30/2024 6:18 AM CDT Finn Monroe DO LAB - BEAKER POCT Final Re sult Performing Organization Address City/[facility]/ZIP Co de Phone Number UR LABORATORY POC [facility] [address] [place] [address], Room [place] [phone], [facility] * (ABNORMAL) Glucose by meter (10/30/2024 2:27 AM CDT) GLUCOSE BY METER POCT 289(H) 70 - 99 mg/dL 10/30/2024 2:34 AM CDT UR LABORATORY POC Blood, Capillary BLOOD SPECIMEN / Unknown 10/30/2024 2:27 AM CDT 10/30/2024 2:34 AM CDT Finn Monroe DO LAB - BEAKER POCT Final Re sult UR LABORATORY POC [facility] [address] [place] [address], Room [place] [phone], [facility] * (ABNORMAL) Glucose by meter (10/29/2024 9:51 PM CDT) GLUCOSE BY METER POCT 326(H) 70 - 99 mg/dL 10/29/2024 9:58 PM CDT UR LABORATORY POC Blood, Capillary BLOOD SPECIMEN / Unknown 10/29/2024 9:51 PM CDT 10/29/2024 9:58 PM CDT us Finn Monroe DO LAB - BEAKER POCT Final Re sult Performing Organization Address City/[facility]/ZIP Co de Phone Number UR LABORATORY POC [facility] [address] [facility], Room [place] [phone] * (ABNORMAL) Glucose by meter (10/29/2024 4:41 PM CDT) [facility] GLUCOSE BY METER POCT 102(H) 70 - 99 mg/dL 10/29/2024 4:48 PM CDT UR LABORATORY POC Blood, Capillary BLOOD SPECIMEN / Unknown 10/29/2024 4:41 PM CDT 10/29/2024 4:48 PM CDT us Finn Monroe DO LAB - BEAKER POCT Final Re sult Performing Organization Address City/[facility] Co de Phone Number UR LABORATORY POC [facility] [address] [place] [address], Room [place] [phone] documented in this encounter Visit Diagnoses [...] Bernice Figueroa) 0746 ($Given - Provider: Judith Pierce, [...] 1237 ($Given - Provider: Sylvia Blackman RN) 8109 (Not Given - Provider: Judith Pierce RN [...] doses. documented in this encounter Care Teams Kick Press Setter Relationship Specialty [place] [address] [place] [address] PCP - General Family Practice 11/21/16 Stephie Mahoney MD [address] [place] [address] [phone] Endocrinology, Diabetes, and Metabolism 04/22/21 Federica Foster, RN [address] [place] [address] [phone] Class C Driver Diabetes Education 04/22/[address] [place] [id number] Class C Driver Nutrition 04/22/21 Stephie Mahoney MD [address] [facility] 101 [place], [place] [phone] Assigned Endocrinology Provider 05/08/21 Olga Garcia, RN Specialty Farm Implement Engine Mechanic INTERNAL MEDICINE - ENDOCRINOLOGY, DIABETES & METABOLISM 09/29/22 Junior Chavira MD [address] [place] [address] Cardiovascular Disease 05/29/24 [place] [address] [place] [address] Assigned PCP 07/12/24 Junior Chavira MD [address] [place], [place] [address] Assigned Heart and Vascular Provider 08/11/24 Coni Dhaliwal, FIELD EVIDENCE TECHNICIAN [address] [place] [phone] Nurse Practitioner Psychiatry & Neurology Vascular Neurology 11/04/24 Anel Long NP [address] [place] [phone] Nurse Practitioner Psychiatry & Neurology Vascular Neurology 11/04/24 documented as of this encounter
--- OUTSIDE RECORDS SUMMARY | 2024-12-12 00:26 | XMS_ITS | Encounter Summary ---
Author Organization [place] Address [address] [place] [address]. [place] [address] Care Team Providers Care Manager Recovery Name Role Phone Wilber Vidales MD Primary Care Provider [phone] Stephie Mahoney MD Unavailable [phone] Federica Foster RN Unavailable [phone] Unavailable [phone] Stephie Mahoney MD Unavailable [phone] Olga Garcia RN Unavailable [phone] Junior Chavira MD Unavailable [phone] Shantel Walker MD Unavailable [phone] Junior Chavira MD Unavailable [phone] Coni Dhaliwal CNP Unavailable [phone] Anel Long NP Unavailable [phone] Reason for Visit * Reason Onset Date Comments eliquis oral tablet 5 mg 11/03/2024 Encounter Details Date Type Department Care Team (Late st Contact Info) Description 11/03/2024 [facility] [id number] [place] [phone] [place] [address] [place] [address] eliquis oral tablet 5 mg Social History [...] How often do you attend chur or spiritism services? 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 Gender Identity Male 03/03/2019 9:24 [...] Info) Description 12/17/2024 9:30 AM CDT Lab [facility] [address] [place] [address] 12/23/2024 4:00 PM CDT Office Visit [facility] [address] [phone] Cyrus Aleman MD [address] [place] [address] 01/27/2025 10:00 AM CDT Office Visit [facility] Neurology [facility] [address] [place] [address] [address] [place] [address] Anel Long MAGNETO SPECIALIST [address] [place], [place] [phone] Coni Dhaliwal CNP [address] [facility] 450 [place], [place] [address] 04/14/2025 11:15 AM CDT Office Visit [facility] Heart [facility] [address] [facility] [address] [place] [phone] Inessa Esteves DO [address] [place], [place] [address] 06/05/2025 12:30 PM CDT Office Visit [facility] Endocrinology [facility] [address] [phone] Stephie Mahoney MD [address] [place] [address] 11/13/2025 11:00 AM CDT Virtual Visit [facility] [address] [place] [phone] Stephie Mahoney MD [address] [place] [address] documented as of this encounter Visit Diagnoses Diagnosis Ischemic stroke (H)- Primary documented in this encounter Care Teams Manager Recovery Relationship Specialty [place] [address] [place] [address] PCP - General Family Practice 11/21/16 Stephie Mahoney MD [address] [place] [address] Endocrinology, Diabetes, and Metabolism 04/22/21 Federica Foster RN [address] [place] [address] Party Director Diabetes Education 04/22/[address] [place] [address] Party Director Nutrition 04/22/21 Stephie Mahoney MD [address] [place] [address] Assigned Endocrinology Provider 05/08/21 Olga Garcia, RN Specialty Director Information Security INTERNAL MEDICINE - ENDOCRINOLOGY, DIABETES & METABOLISM 09/29/22 Junior Chavira MD [address] [place] [address] Cardiovascular Disease 05/29/24 [place] [address] [address], [place] [address] Assigned PCP 07/12/24 Junior Chavira MD [address] [place] [address] Assigned Heart and Vascular Provider 08/11/24 Coni Dhaliwal, COREY [address] [place] [phone] Nurse Practitioner Psychiatry & Neurology Vascular Neurology 11/04/24 Anel Long NP [address] [place] [address] Nurse Practitioner Psychiatry & Neurology Vascular Neurology 11/04/24 documented as of this encounter
--- OUTSIDE RECORDS SUMMARY | 2024-12-12 00:27 | XMS_ITS | Encounter Summary ---
Author Organization [place] Address [address] [place] [address]. [place] [address] Care Team Providers Care Behavioral Health Consultant Name Role Phone Wilber Vidales MD Primary Care Provider [phone] Stephie Mahoney MD Unavailable [phone] Federica Foster RN Unavailable +[phone] Unavailable [phone] Stephie Mahoney MD Unavailable +[phone] Olga Garcia RN Unavailable [phone] Junior Chavira MD Unavailable +[phone] Shantel Walker MD Unavailable +[phone] Junior Chavira MD Unavailable [phone] Coni Dhaliwal CNP Unavailable +[phone] Anel Long NP Unavailable [phone] Reason for Visit * Reason Onset Date Comments Insulin Lantusletter mailed out 11/20/2024 Encounter Details Date Type Department Care Team (Late st Contact Info) Description 11/20/2024 [facility] Endocrinology [place] 9[address] [facility] 3rd [place] [address] Stephie Mahoney MD [address] [place] [address] [address] [place] [address] Insulin Lantusletter mailed out Social History Tobacco [...] any clubs o r organizations such as yazidism groups, unions, fraternal or athletic groups, or [...] Date Recorded PHQ-2 Score 0 11/14/2024 [facility] of Occupat ional Health - [...] AM CDT 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 Marcelo Valdez -General Solution Advisor documented in this encounter Plan of Treatment Upcoming Encounters Date Type Department Care Team (Late st Contact Info) Description 12/17/2024 9:30 AM CDT Lab [facility] Laboratory [address] [place] [address] 12/23/2024 4:00 PM CDT Office Visit [facility] 6545 [facility] [address] [place] [address] Cyrus Aleman MD [address] [place] [address] 304355 01/27/2025 10:00 AM CDT Office Visit [facility] Neurology [facility] [address] [place] [address] [address] [place] [phone] Anel Long, DIESEL PILE DRIVER OPERATOR [address] [place] [address] Coni Dhaliwal, COREY [address] [facility] [address] [place] [place], [place] [address] 04/14/2025 11:15 AM CDT Office Visit [facility] Heart [facility] [address] [facility] [address] [place] [address] Inessa Esteves DO [address] [place], [place] [address] 06/05/2025 12:30 PM CDT Office Visit [facility] End[facility]ology Clinic [address] [phone] Stephie Mahoney MD [address] [place] [address] 429925 11/13/2025 11:00 AM CDT Virtual Visit [facility] Endocrinology Clinic [place] 7035[address] [facility] 3rd [place] [address] Stephie Mahoney MD [address] [place] [address] 579315 documented as of this encounter Visit Diagnoses Not on filedocumented in this encounter Care Teams Behavioral Health Consultant Relationship Specialty [place] [address] [place] [address] PCP - General Family Practice 11/21/16 Stephie Mahoney MD [address] [place] [address] Endocrinology, Diabetes, and Metabolism 04/22/21 Federica Foster RN [address] [place] [address] Larry Operator Diabetes Education 04/22/[address] [place] [address] Larry Operator Nutrition 04/22/21 Stephie Mahoney MD [address] [place] [address] Assigned Endocrinology Provider 05/08/21 Olga Garcia RN Specialty Executive Manager INTERNAL MEDICINE - ENDOCRINOLOGY, DIABETES & METABOLISM 09/29/22 Junior Chavira MD [address] [place] 4[address]25 Cardiovascular Disease 05/29/24 [place] [address] [address] [place], [place] [address] Assigned PCP 07/12/24 Junior Chavira MD [address] [place] 4[address]95 Assigned Heart and Vascular Provider 08/11/24 Coni Dhaliwal CNP [address] [place] 134655 Nurse Practitioner Psychiatry & Neurology Vascular Neurology 11/04/24 Anel Long NP [address] [place], [place] 916025 Nurse Practitioner Psychiatry & Neurology Vascular Neurology 11/04/24 documented as of this encounter
--- OUTSIDE RECORDS SUMMARY | 2024-12-12 00:27 | XMS_ITS | Encounter Summary ---
Author Organization [place] Address [address] [place] [address]. [place] [address] Care Team Providers Care Rn Cvor Name Role Phone Wilber Vidales MD Primary Care Provider [phone] Stephie Mahoney MD Unavailable [phone] Federica Foster RN Unavailable [phone] Unavailable [phone] Stephie Mahoney MD Unavailable [phone] Olga Garcia RN Unavailable +[phone] Junior Chavira MD Unavailable [phone] Shantel Walker MD Unavailable +[phone] Junior Chavira MD Unavailable [phone] Coni Dhaliwal CNP Unavailable +[phone] Anel Long NP Unavailable [phone] Angel Balbuena MD Unavailable [phone] Encounter Details Date Type Department Care Team (Late st Contact Info) Description 11/20/2024 [facility] Endocrinology Clinic [place] [address] [facility] 3rd [place] [address] Dinah Velazquez Social History Tobacco [...] How often do you attend chur or mormon services? 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 Neurology [facility] 1650 [facility] [address] [place] [phone] Anel Long, TOOL AND DIE MAKER/DESIGNER [address] [place] [place] [address] Coni Dhaliwal, ANATOMIC PATHOLOGY ASSISTANT [address] [place] [address] 04/14/2025 11:15 AM CDT Office [facility] Heart [facility] [address] [facility] [address] [place] [phone] Inessa Esteves DO [address] [place], [place] [address] 06/05/2025 12:30 PM CDT Office [facility] Endocrinology Clinic [address] [address] Stephie Mahoney MD [address] [place] [address] 407565 11/13/2025 11:00 AM CDT Virtual Visit [facility] Endocrinology Clinic [address] [phone] Stephie Mahoney MD [address] [place] [address] 908755 documented as of this encounter Visit Diagnoses Not on filedocumented in this encounter Care Teams Rn Cvor Relationship Specialty [place] [address] [place] [address] PCP - General Family Practice 11/21/16 Stephie Mahoney MD [address] [place] [address] 978125 Endocrinology, Diabetes, and Metabolism 04/22/21 Federica Foster, RN [address] [place] [address] [phone] Substation Manager Diabetes Education 04/22/[address] [facility] [address] 179664 Substation Manager Nutrition 04/22/21 Stephie Mahoney MD [address] [place] [address] 176885 Assigned Endocrinology Provider 05/08/21 Olga Garcia, RN Specialty Child And Adolescent Psychiatrist INTERNAL MEDICINE - ENDOCRINOLOGY, DIABETES & METABOLISM 09/29/22 Junior Chavira MD [address] [place] 217[address] Cardiovascular Disease 05/29/24 [place] [address] [place] [address] Assigned PCP 07/12/24 Junior Chavira MD [address] [place] [address] Assigned Heart and Vascular Provider 08/11/24 Coni Dhaliwal CNP [address] [place] [address] [place] [address] Nurse Practitioner Psychiatry & Neurology Vascular Neurology 11/04/24 Anel Long NP [address] [place] [address] Nurse Practitioner Psychiatry & Neurology Vascular Neurology 11/04/24 Angel Balbuena MD [address] [place], [place] 3065[address] Assigned Heart and Vascular Surgical Provider 12/10/24 documented as of this encounter
--- OUTSIDE RECORDS SUMMARY | 2024-12-12 00:27 | XMS_ITS | Encounter Summary ---
Author Organization [place] Address [address] [place] [address]. [place] [address] Care Team Providers Care Card Processing Clerk Name Role Phone Wilber Vidales MD Primary Care Provider [phone] Stephie Mahoney MD Unavailable +[phone] Federica Foster RN Unavailable +[phone] Unavailable [phone] Stephie Mahoney MD Unavailable [phone] Olga Garcia RN Unavailable [phone] Junior Chavira MD Unavailable +[phone] Shantel Walker MD Unavailable [phone] Junior Chavira MD Unavailable [phone] Coni Dhaliwal CNP Unavailable [phone] Anel Long NP Unavailable [phone] Encounter Details Date Type Department Care [...] often do you attend chur ch or baptism services? 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 Gender Identity Male 03/03/2019 9:24 PM CDT Sexual Orientation Straight 03/03/2019 9: 24 PM CDT documented as of this encounter Plan of Treatment Upcoming Encounters Date Type Department Care Team (Late st Contact Info) Description 12/17/2024 9:30 AM CDT Lab [facility] Laboratory [address] [place] [address] 12/23/2024 4:00 PM CDT Office Visit [place] [address] [place] [address] Cyrus Aleman MD [address] [place] [address] 01/27/2025 10:00 AM CDT Office Visit [facility] Neurology [address] [place] [address] Anel Long, ENTERPRISE SECURITY ARCHITECT [address] [place] [address] Coni Dhaliwal, COREY [address] [place] [address]3985 04/14/2025 11:15 AM CDT Office Visit [facility] Heart [facility] [address] [facility] [address] [place] [address] Inessa Esteves DO [address] [place] [address]23845 06/05/2025 12:30 PM CDT Office Visit [facility] Endocrinology Clinic [address] [phone] Stephie Mahoney MD [address] [place] [address] 11/13/2025 11:00 AM CDT Virtual Visit [facility] Endocrinology [address] [phone] Stephie Mahoney MD [address] [place] [address] 757875 documented as of this encounter Visit Diagnoses Not on filedocumented in this encounter Care Teams Card Processing Clerk Relationship Specialty [place] [address] [place] [address] PCP - General Family Practice 11/21/16 Stephie Mahoney MD [address] 623145 Endocrinology, Diabetes, and Metabolism 04/22/21 Feedrica Foster, RN 420 [place], [place] 268885 Power Equipment Mechanics Instructor Diabetes Education 04/22/[address] [place] [address] 416334 Power Equipment Mechanics Instructor Nutrition 04/22/21 Stephie Mahoney MD [address] [place] [address] 434555 Assigned Endocrinology Provider 05/08/21 Olga Garcia RN Specialty Kettle Cook INTERNAL MEDICINE - ENDOCRINOLOGY, DIABETES & METABOLISM 09/29/22 Junior Chavira MD [address] [place] 159265 Cardiovascular Disease 05/29/24 [place] [address] [place] [address] Assigned PCP 07/12/24 Junior Chavira MD [address] [place] 448535 Assigned Heart and Vascular Provider 08/11/24 Coni Dhaliwal, COMMODITY DIRECTOR [address] [place] [address] Nurse Practitioner Psychiatry & Neurology Vascular Neurology 11/04/24 Anel Long NP [address] [place] [address] Nurse Practitioner Psychiatry & Neurology Vascular Neurology 11/04/24 documented as of this encounter
--- OUTSIDE RECORDS SUMMARY | 2024-12-12 00:27 | XMS_ITS | Encounter Summary ---
Author Organization [place] Address [address] [place] [address]. [place] [address] Care Team Providers Care Burial Vault Deliverer And Installer Name Role Phone Wilber Vidales MD Primary Care Provider [phone] Stephie Mahoney MD Unavailable +[phone] Federica Foster RN Unavailable +[phone] Unavailable [phone] Stephie Mahoney MD Unavailable [phone] Olga Garcia RN Unavailable +[phone] Junior Chavira MD Unavailable +[phone] Shantel Walker MD Unavailable [phone] Junior Chavira MD Unavailable [phone] Coni Dhaliwal CNP Unavailable +[phone] Anel Long NP Unavailable [phone] Encounter Details Date Type Department Care [...] Answer Date Recorded PHQ-2 Score 0 11/14/2024 [facility] of Occupat ional Health - Occupational Stress [...] AM CDT 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 Gender Identity Male 03/03/2019 9:24 PM CDT Sexual Orientation Straight 03/03/2019 9: 24 PM CDT documented as of this encounter Plan of Treatment Upcoming Encounters Date Type Department Care Team (Late st Contact Info) Description 12/17/2024 9:30 AM CDT Lab [facility] Laboratory [address] [place] [address] 12/23/2024 4:00 PM CDT Office Visit [place] [address] [place] [address] Cyrus Aleman MD [address] [place] [address] 01/27/2025 10:00 AM CDT Office Visit [facility] Neurology [address] [place] [address] Anel Long, TEST DEVELOPER [address] [place] [address] Coni Dhaliwal, COREY [address] [place] 76[address]65 04/14/2025 11:15 AM CDT Office Visit [facility] Heart [facility] [address] [facility] [address] [place] [address] Inessa Esteves DO [address] [place] [address] 06/05/2025 12:30 PM CDT Office Visit [facility] Endocrinology Clinic [address] [phone] Stephie Mahoney MD [address] [place] [address] 11/13/2025 11:00 AM CDT Virtual Visit [facility] Endocrinology [address] [phone] Stephie Mahoney MD [address] [place] [address] 365895 documented as of this encounter Visit Diagnoses Not on filedocumented in this encounter Care Teams Burial Vault Deliverer And Installer Relationship Specialty [place] [address] [place] [address] PCP - General Family Practice 11/21/16 Stephie Mahoney MD [address] 978025 Endocrinology, Diabetes, and Metabolism 04/22/21 Federica Foster, RN 420 [place], [place] 048885 Assistant Dean Diabetes Education 04/22/[address] [place] [address] 897764 Assistant Dean Nutrition 04/22/21 Stephie Mahoney MD [address] [place] [address] 114705 Assigned Endocrinology Provider 05/08/21 Olga Garcia RN Specialty Quality Assurance Coordinator INTERNAL MEDICINE - ENDOCRINOLOGY, DIABETES & METABOLISM 09/29/22 Junior Chavira MD [address] [place] 912225 Cardiovascular Disease 05/29/24 [place] [address] [place] [address] Assigned PCP 07/12/24 Junior Chavira MD [address] [place] 472905 Assigned Heart and Vascular Provider 08/11/24 Coni Dhaliwal, DIGITAL CONTENT COORDINATOR [address] [place] [address] Nurse Practitioner Psychiatry & Neurology Vascular Neurology 11/04/24 Anel Long NP [address] [place] [address] Nurse Practitioner Psychiatry & Neurology Vascular Neurology 11/04/24 documented as of this encounter
--- OUTSIDE RECORDS SUMMARY | 2024-12-12 00:27 | XMS_ITS | Encounter Summary ---
Author Organization [facility] Address [address] [place] [address]. [place] [address] Care Team Providers Care Loss Mitigation Specialist Name Role Phone Wilber Vidales MD Primary Care Provider [phone] Stephie Mahoney MD Unavailable +[phone] Federica Foster RN Unavailable [phone] Unavailable [phone] Stephie Mahoney MD Unavailable [phone] Olga Garcia RN Unavailable [phone] Junior Chavira MD Unavailable +[phone] Shantel Walker MD Unavailable +[phone] Junior Chavira MD Unavailable [phone] Coni Dhaliwal CNP Unavailable [phone] Anel Long MEDICAL OFFICE COORDINATOR Unavailable [phone] Encounter Details Date Type Department Care Team (Latest Contact Info) Description 11/17/2024 Orders Only (auto-released) [place] [address] Medical Surgical [address] [place] [address] Anel Long, MEDICAL OFFICE COORDINATOR [address] [place] [address] 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 of [...] 0 11/14/2024 [facility] of Occupat ional Health - [...] AM CDT 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 Gender Identity Male 03/03/2019 9:24 PM CDT Sexual Orientation Straight 03/03/2019 9: 24 PM CDT documented as of this encounter Plan of Treatment Upcoming Encounters Date Type Department Care Team (Late st Contact Info) Description 12/17/2024 9:30 AM CDT Lab [facility] Laboratory [address] [place] [phone] 12/23/2024 4:00 PM CDT Office Visit [facility] 6545 [facility] [address] [place] [phone] Cyrus Aleman MD [address] [place] [address] 041895 01/27/2025 10:00 AM CDT Office Visit [facility] Neurology [facility] [address] [place] [address] 200 [place] [phone] Anel Long, MEDICAL OFFICE COORDINATOR [address] [place], [place] [address] Coni Dhaliwal, TECHNICIAN BIOLOGICAL HEALTH [address] [facility] 450 [place], [place] [address] 04/14/2025 11:15 AM CDT Office Visit [facility] Heart [facility] [address] [facility] [address] [place] [phone] Inessa Esteves DO [address] [place], [place] [address] 06/05/2025 12:30 PM CDT Office Visit [facility] Endocrinology [address] [place] [phone] Stephie Mahoney MD [address] [place] [address] 182465 11/13/2025 11:00 AM CDT Virtual Visit [facility] Endocrinology [address] [place] [phone] Stephie Mahoney MD [address] [address] Pending Results Name Type Priority Associated Diagnoses [...] (H) documented in this encounter Care Teams Loss Mitigation Specialist Relationship Specialty [place] [address] [place] [address] PCP - General Family Practice 11/21/16 Stephie Mahoney MD [address] [place] [address] Endocrinology, Diabetes, and Metabolism 04/22/21 Federica Foster, RN [address] [place] [address] Residential Program Director Diabetes Education 04/22/[address] [place] [address] Residential Program Director Nutrition 04/22/21 Stephie Mahoney MD [address] [place] [address] Assigned Endocrinology Provider 05/08/21 Olga Garcia, RN Specialty Primary Substance Abuse Counselor INTERNAL MEDICINE - ENDOCRINOLOGY, DIABETES & METABOLISM 09/29/22 Junior Chavira MD [address] [place] 956[address] Cardiovascular Disease 05/29/24 [place] [address] [address] [address] Assigned PCP 07/12/24 Junior Chavira MD [address] [place] 496955 Assigned Heart and Vascular Provider 08/11/24 Coni Dhaliwal, TECHNICIAN BIOLOGICAL HEALTH [address] [place] 990575 Nurse Practitioner Psychiatry & Neurology Vascular Neurology 11/04/24 Anel Long NP [address] [place] 589345 Nurse Practitioner Psychiatry & Neurology Vascular Neurology 11/04/24 documented as of this encounter
--- OUTSIDE RECORDS SUMMARY | 2024-12-12 00:27 | XMS_ITS | Encounter Summary ---
Author Organization [facility] Address [address] [place] [address]. [place] [address] Care Team Providers Care Kitchen Lead Name Role Phone Wilber Vidales MD Primary Care Provider [phone] Stephie Mahoney MD Unavailable [phone] Federica Foster RN Unavailable [phone] Unavailable [phone] Stephie Mahoney MD Unavailable [phone] Olga Garcia RN Unavailable [phone] Junior Chavira MD Unavailable [phone] Shantel Walker MD Unavailable [phone] Junior Chavira MD Unavailable [phone] Coni Dhaliwal CNP Unavailable [phone] Anel Long NP Unavailable [phone] Reason for Referral * Diagnostic Imaging CT Scan (Routine) - Closed Specialty Diagnoses / Procedures Referred By Contac t Referred To Contact Radiology. Diagnoses Pneumonia of both lower lobes due to infectious organism Procedures CT Chest w Contrast Angel Balbuena MD [address] [place] [address] Phone: tel: fax: [facility] [address] [place] [address] Phone: tel: fax: Referral ID Status Reason Start Date Expiration Date Visits Re quested Visits Authorized [id number] Closed 10/28/2024 10/28/2025 1 1 Reason for Visit * Diagnostic Imaging CT Scan (Routine) - Closed Specialty Diagnoses / Procedures Referred By Contac t Referred To Contact Radiology. Diagnoses Pneumonia of both lower lobes due to infectious organism Procedures CT Chest w Contrast Angel Balbuena MD [address] [place] [address] Phone: tel: fax: [facility] [address] [place] [address] Phone: tel: fax: Referral ID Status Reason Start Date Expiration Date Visits Re quested Visits Authorized [id number] Closed 10/28/2024 10/28/2025 1 1 Encounter Details Date Type Department Care Team (Latest Contact Info) Description 11/28/2024 1:20 PM CDT - 11/28/2024 11:59 PM CDT Hospital Encounter [facility] [address] [facility] [address] [place] [phone] Angel Balbuena MD [address] [place] [address] Pneumonia of both lower lobes [...] How often do you attend chur or mandaeism services? More than 4 times [...] Answer Date Recorded PHQ-2 Score 0 11/14/2024 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 Continuous Glucose Sensor (HOMETRAX G7 SENSOR) MISCIndications:Ty pe 1 diabetes mellitus [...] 9:30 AM CDT Lab [facility] [address] [place] [address] 12/23/2024 4:00 PM CDT Office Visit [address] [phone] Cyrus Aleman MD [address] [place] [address] [id number] 01/27/2025 10:00 AM CDT Office Visit [facility] [address] [place] [address] [place] [phone] Anel Long, TECHNICAL INSTRUCTOR [address] [place] [address] Coni Dhaliwal, JOURNEYMAN OPERATOR ASSISTANT [address] [place] [id number] 04/14/2025 11:15 AM CDT Office Visit [facility] Heart [facility] [address] [facility] [address] [place] [phone] Yungjeromy Inessa Funes, [address] [place] [address] 06/05/2025 12:30 PM CDT Office Visit [facility] Endocrinology Clinic [address] [phone] Stephie Mahoney MD [address] [place] [address] 11/13/2025 11:00 AM CDT Virtual Visit [facility] Endocrinology [address] [phone] Stephie Mahoney MD [address] [place] [address] [phone] documented as of this encounter Procedures Procedure [...] CDT EXAM: CT CHEST W CONTRAST LOCATION: [facility] DATE: 11/28/2024 INDICATION: trapped lung [...] 12/01/2024 EXAM: CT CHEST W CONTRAST LOCATION: [facility] DATE: 11/28/2024 INDICATION: trapped lung [...] mLs documented in this encounter Care Teams Kitchen Lead Relationship Specialty [place] [address] [place] [address] PCP - General Family Practice 11/21/16 Stephie Mahoney MD [address] [place] [address] Endocrinology, Diabetes, and Metabolism 04/22/21 Federica Foster, RN [address] [place] [address] Restrictive Preparation Operator Diabetes Education 04/22/[address] [facility] [place] [address] Restrictive Preparation Operator Nutrition 04/22/21 Stephie Mahoney MD [address] [address] Assigned Endocrinology Provider 05/08/21 Olga Garcia RN Specialty Rubber Goods Inspector INTERNAL MEDICINE - ENDOCRINOLOGY, DIABETES & METABOLISM 09/29/22 Junior Chavira MD [address] [place] [id number] Cardiovascular Disease 05/29/24 [place] [address] [place] [address] Assigned PCP 07/12/24 Junior Chaivra MD [address] [place] [id number] Assigned Heart and Vascular Provider 08/11/24 Coni Dhaliwal, JOURNEYMAN OPERATOR ASSISTANT [address] [place] [id number] Nurse Practitioner Psychiatry & Neurology Vascular Neurology 11/04/24 Anel Long, TARIK [address] [place] [id number] Nurse Practitioner Psychiatry & Neurology Vascular Neurology 11/04/24 documented as of this encounter
--- OUTSIDE RECORDS SUMMARY | 2024-12-12 00:27 | XMS_ITS | Encounter Summary ---
Author Organization [facility] Address [address] [place] [address]. [place] [address] Care Team Providers Care Biofuels Processing Technician Name Role Phone Wilber Vidales MD Primary Care Provider [phone] Stephie Mahoney MD Unavailable [phone] Federica Foster RN Unavailable [phone] Unavailable [phone] Stephie Mahoney MD Unavailable [phone] Olga Garcia RN Unavailable [phone] Junior Chavira MD Unavailable [phone] Shantel Walker MD Unavailable [phone] Junior Chavira MD Unavailable [phone] Coni Dhaliwal CNP Unavailable [phone] Anel Long NP Unavailable [phone] Encounter Details Date Type Department Care Team (Late st Contact Info) Description 12/01/2024 Telephone [facility] [place] [address] [facility] [address] [place] [address] Stephie Mahoney MD [address] [facility] [address] [place] [address] Social History Tobacco Use Types [...] often do you attend chur ch or sabianism services? 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 Gender Identity Male 03/03/2019 9:24 PM CDT [...] MD Sent: 12/01/2024 12:00 AM CDT To: [facility] Endocrinology Adult Csc Ask for cgm and pump data send to me to review documented in this encounter Plan of Treatment Upcoming Encounters Date Type Department Care Team (Late st Contact Info) Description 12/17/2024 9:30 AM CDT Lab [facility] [address] [place] [address] 12/23/2024 4:00 PM CDT Office Visit [address] [phone] Cyrus Aleman MD [address] [place] [address]55805 01/27/2025 10:00 AM CDT Office Visit [facility] Neurology [address] [phone] Anel Long NP [address] [place], [place] [address] Coni Dhaliwal, COREY [address] [phone] 04/14/2025 11:15 AM CDT Office Visit [facility] Heart [address] [place] [phone] Inessa Esteves DO [address] [place], [place] [address] 06/05/2025 12:30 PM CDT Office Visit [facility] Endocr[facility]ology Clinic [address] [address] Stephie Mahoney MD [address] [place] [address] 11/13/2025 11:00 AM CDT Virtual Visit [facility] [address] [address] Stephie Mahoney MD [address] [place] [address] [phone] documented as of this encounter Visit Diagnoses Not on filedocumented in this encounter Care Teams Biofuels Processing Technician Relationship Specialty [place] [address] [address] PCP - General Family Practice 11/21/16 Stephie Mahoney MD [address] [place] [address] [phone] Endocrinology, Diabetes, and Metabolism 04/22/21 Federica Foster, RN [address] [place] [phone] Union Organiser Diabetes Education 04/22/21 Tova Welch, RD [facility] [address] [address] Union Organiser Nutrition 04/22/21 Stephie Mahoney MD [address] [place] [address] [facility] [address] [place], [place] [address] Assigned Endocrinology Provider 05/08/21 Olga Garcia, RN Specialty Prototype Assembler Electronics INTERNAL MEDICINE - ENDOCRINOLOGY, DIABETES & METABOLISM 09/29/22 Junior Chavira MD [address] [place] [address] Cardiovascular Disease 05/29/24 [place] [address] [place] [address] Assigned PCP 07/12/24 Junior Chavira MD [address] [place] [id number] Assigned Heart and Vascular Provider 08/11/24 Coni Dhaliwal, POTTERY MACHINE OPERATOR [address] [place] [id number] Nurse Practitioner Psychiatry & Neurology Vascular Neurology 11/04/24 Anel Long NP [address] [place] [id number] Nurse Practitioner Psychiatry & Neurology Vascular Neurology 11/04/24 documented as of this encounter
--- OUTSIDE RECORDS SUMMARY | 2024-12-12 00:27 | XMS_ITS | Clinical Summary ---
Author Organization [facility] Address [address] [facility] [address] , [address] [place] [address] Phone Care Team Providers Care Generation Engineering Technologist Name Role Phone Lorraine Ricardo Unavailable Conditions or Problems Problem Name Problem Code Onset Date Status Entry Date Provider Comment Standard Description Annotate Memory loss 79798490 (SNOMED CT) 03/13 Active 03/13 Zaki Gujaardo Jr, MD Amnesia Hypersomnia w/sleep apnea 13513505 (SNOMED CT) 03/13 Active 03/13 Zaki Guajardo Jr, MD Hypersomnia with sleep apnea Sleep deprivation 421606753 (SNOMED CT) 03/12 Active 03/12 Zaki Guajardo Jr, MD Sleep deprivation Tremor, left hand 82351455 (SNOMED CT) 09/20 Active 09/20 Chris Phan MD Tremor SNORING 02774637 (SNOMED CT) 05/12 Resolved 05/13 Chris Phan MD Snoring HYPERSOMNIA 35967165 (SNOMED CT) 09/24 Resolved 09/24 Chris Phan MD Hypersomnia Atheroscler osis, cerebral 05766048 (SNOMED CT) 11/14 Resolved 11/14 Chris Phan MD Cerebral atherosclerosi s Sleep maintenance insomnia G47.00 (ICD-10-CM ) Active Zaki Guajardo Jr, MD Insomnia, unspecified Medication monitoring 294155019 (SNOMED CT) 09/17 Active 09/17 Chris Phan MD Medication monitoring Basilar artery stenosis 72503259 (SNOMED CT) 09/17 Active 09/17 Chris Phan MD Basilar artery stenosis EFFECTS, RADIATION NOS T66 (ICD-10-CM ) 09/20 Resolved 04/18 Chris Phan MD Radiation sickness, unspecified DERMATITIS D/T TOPICAL DRUGS/MEDIC TIFFANIE L25.1 (ICD-10-CM ) 11/08 Resolved 11/08 Chris Phan MD Unspecified contact dermatitis due to drugs in contact with skin Spells 38747322 (SNOMED CT) 10/13 Resolved 10/13 Chris Phan MD Stupor SHOULDER PAIN 91809279 (SNOMED CT) 08/28 Resolved 08/29 Chris Phan MD Pain of shoulder region MIGRAINE NOS, INTRACTABLE G43.919 (ICD-10-CM ) 11/21 Resolved 11/21 Chris Phan MD Migraine, unspecified, intractable, without status migrainosus CLASSICAL MIGRAINE, NOT INTRACTABLE G43.109 (ICD-10-CM ) 11/21 Resolved 11/21 Chris Phan MD Migraine with aura, not intractable, without status migrainosus HEADACHE 85951497 (SNOMED CT) 11/02 Resolved 11/02 Chris Phan MD Headache NUMBNESS/TI NGLING LEFT SIDE, EPISODIC 782.0 (ICD-9-CM) 08/22 Resolved 08/22 Chris Phan MD Disturbance of skin sensation BENIGN NEOPLASM OF THE BRAIN 018134514 (SNOMED CT) 01/19 Resolved 01/21 Chris Phan MD History of benign neoplasm of brain OTHER POSTSURGICA L STATUS OTHER 040984619 (SNOMED CT) 01/19 Resolved 01/21 Chris Phan MD Postprocedural state finding 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, intractable , with status epilepticus G40.211 (ICD-10-CM ) 08/22 Active 08/22 Chris Phan MD Localization-r elated (focal) (partial) symptomatic epilepsy and epileptic syndromes with complex partial seizures, intractable, with status epilepticus Atheroscler osis, cerebral 74004462 (SNOMED CT) 11/14 Removed 11/14 Ervin Carvajal DO Cerebral atherosclerosi s Spells 22910835 (SNOMED CT) 10/13 Removed 10/13 Jacquie Rutledge DNP,NEPHROLOGY SOCIAL WORKER,CN P Stupor HYPERSOMNIA 10305116 (SNOMED CT) 09/24 Removed 09/24 Zaki Guajardo Jr, MD Hypersomnia SNORING 16125574 (SNOMED CT) 05/12 Removed 05/13 Zaki Guajardo Jr, MD Snoring OBSTRUCTIVE SLEEP APNEA (MOD; AHI 26; 73%; +7) G47.33 (ICD-10-CM ) 05/12 Active 05/13 Zaki Guajardo Jr, MD Obstructive sleep apnea (adult) (pediatric) OTHER POSTSURGICA L STATUS OTHER 690849624 (SNOMED CT) 01/19 Removed 01/21 Valerie Lomeli, HAND BINDER CUTTER Postprocedural state finding BENIGN NEOPLASM OF THE BRAIN 859714692 (SNOMED CT) 01/19 Removed 01/21 Valerie Lomeli, HAND BINDER CUTTER History of benign neoplasm of brain SHOULDER PAIN 01585365 (SNOMED CT) 08/28 Removed 08/29 Anthony Christiansen MD Pain of shoulder region MIGRAINE NOS, INTRACTABLE G43.919 (ICD-10-CM ) 11/21 Removed 11/21 Jacquie Rutledge DNP,NEPHROLOGY SOCIAL WORKER,CN P Migraine, unspecified, intractable, without status migrainosus CLASSICAL MIGRAINE, NOT INTRACTABLE G43.109 (ICD-10-CM ) 11/21 Removed 11/21 Jacquie Rutledge DNP,NEPHROLOGY SOCIAL WORKER,CN P Migraine with aura, not intractable, without status migrainosus HEADACHE 60732863 (SNOMED CT) 11/02 Removed 11/02 Jacquie Rutledge DNP,NEPHROLOGY SOCIAL WORKER,CN P Headache GENERALIZED TONIC CLONIC SEIZURES, INTRACTABLE G40.319 (ICD-10-CM ) 08/22 Correction 11/03 Jacquie M Rechtzigel DNP,NEPHROLOGY SOCIAL WORKER,CN P Generalized idiopathic epilepsy and epileptic syndromes, intractable, without status epilepticus GENERALIZED TONIC CLONIC SEIZURES, NOT INTRACTABLE G40.309 (ICD-10-CM ) 08/22 Inactive 08/22 Jacquie [facility]key [facility] DNP,NEPHROLOGY SOCIAL WORKER,CN P Generalized idiopathic epilepsy and epileptic syndromes, not intractable, without status epilepticus NUMBNESS/TI NGLING LEFT SIDE, EPISODIC 782.0 (ICD-9-CM) 08/22 Removed 08/22 Jacquie Lang Aamir DNP,NEPHROLOGY SOCIAL WORKER,CN P Disturbance of skin sensation EFFECTS, RADIATION [...] Instructions Start Date Stop Date Generic Name [facility] Provider LAMOTRIGINE 200 MG TABS Take 1 tablet by mouth twice a day with 100 mg tablet, total 300 mg PO BID lamotrigine 07968058646 Chris Phan MD LAMOTRIGINE 100 MG TABS Take 1 tablet by mouth twice a day with with 200 mg tablets ( total 300 mg PO BID). lamotrigine 38270863097 Chris Phan MD TIZANIDINE HCL 2 MG CAPS Take 1-2 capsule by mouth every night at bedtime as needed as directed for low back pain tizanidine 49758874287 Zaki Guajardo Jr, MD MODAFINIL 200 MG TABS Take 1 tablet by mouth twice a day as directed AM, lunchtime modafinil 02720198465 Zaki Guajardo Jr, MD LISINOPRIL 5 MG TABS Take 1 tablet (5 mg) by mouth 2 times daily lisinopril 73627446598 Zaki Guajardo Jr, MD MODAFINIL 200 MG TABS Take 1-2 tablets by mouth every morning as needed modafinil 76689148830 Zaki Guajardo Jr, MD ESZOPICLONE 3 MG TABS Take 0.5-1 tablet by mouth at bedtime; do not mix with alcohol or other sedatives eszopiclone 16569095265 Zaki Guajardo Jr, MD LISINOPRIL 20 MG TABS lisinopril 41439507078 Zaki Guajardo Jr, MD ESZOPICLONE 3 MG TABS Take 1 tablet by mouth at bedtime; do not mix with alcohol or other sedatives eszopiclone 27609171129 Zaki Guajardo Jr, MD MODAFINIL 200 MG TABS Take 1 tablet by mouth twice a day as directed AM, lunchtime modafinil 35551285415 Zaki Guajardo Jr, MD ESZOPICLONE 3 MG TABS Take 0.5-1 tablet by mouth at bedtime do not mix with alcohol or other sedatives eszopiclone 39189932727 Zaki Guajardo Jr, MD ESZOPICLONE 3 MG TABS Take 0.5-1 tablet by mouth at bedtime; do not mix with alcohol or other sedatives eszopiclone 93429142293 Zaki Guajardo Jr, MD LAMOTRIGINE 100 MG TABS TAKE ONE TABLET BY MOUTH TWICE DAILY. take with 200mg tablets. lamotrigine 28944039645 Chris Phan MD LAMOTRIGINE 200 MG TABS Take 1 tablet by mouth twice a day lamotrigine 93590671350 Chris Phan MD LAMOTRIGINE 200 MG TABS Take 1 tablet by mouth twice a day with 100 mg tablet, total 300 mg PO BID lamotrigine 11910081784 Chris Phan MD LAMOTRIGINE 100 MG TABS Take 1 tablet by mouth twice a day with with 200 mg tablets ( total 300 mg PO BID). lamotrigine 36758929256 Chris Phan MD LAMOTRIGINE 200 MG TABS Take 1 tablet by mouth twice a day lamotrigine 02363305240 Chris Phan MD ESZOPICLONE 3 MG TABS Take 0.5-1 tablet by mouth at bedtime do not mix with alcohol or other sedatives eszopiclone 07152317575 Sasha Vivas PA-C MODAFINIL 200 MG TABS Take 1-2 tablet by mouth every morning as needed modafinil 50830139327 Zaki Guajardo Jr, MD MODAFINIL 200 MG TABS Take 1-2 tablets by mouth every morning as needed modafinil 62712667342 Zaki Guajardo Jr, MD LAMOTRIGINE 100 MG TABS 1 PO BID ( with the 200 mg tablets) lamotrigine 79708440728 Chris Phan MD LAMOTRIGINE 100 MG TABS TAKE ONE TABLET BY MOUTH TWICE DAILY. take with 200mg tablets. lamotrigine 56762279065 Chris Phan MD ELIQUIS 5 MG TABS apixaban 94095793680 Chris Phan MD BAQSIMI ONE PACK 3 MG/DOSE POWD SPRAY 1 APPLICATION INTO NOSTRIL DAILY NEEDED glucagon 37581761975 Chris Phan MD Novolog U-100 Insulin aspart 100 unit/mL solution insulin aspart u-100 54265897912 Chris Phan MD METFORMIN HCL 500 MG TABS Take 2 tablets (1,000 mg) by mouth 2 times daily (with meals) metformin 95229792197 hCris Phan MD SILDENAFIL CITRATE 100 MG TABS TAKE ONE TABLET BY MOUTH EVERY DAY NEEDED sildenafil 78152167722 Chris Phan MD ATORVASTATIN CALCIUM 40 MG TABS atorvastatin 50245607876 Chris Phan MD LISINOPRIL 5 MG TABS Take 1 tablet (5 mg) by mouth 2 times daily lisinopril 24697603148 Chris Phan MD CARVEDILOL 12.5 MG TABS carvedilol 93750128215 Chris Phan MD ZALEPLON 10 MG CAPS zaleplon 62508953611 Chris Phan MD LAMOTRIGINE 200 MG TABS TAKE ONE TABLET BY MOUTH TWICE DAILY lamotrigine 09128304401 Chris Phan MD ESZOPICLONE 3 MG TABS Take 0.5-1 tablet by mouth at bedtime do not mix with alcohol or other sedatives eszopiclone 69067587032 Zaki Guajardo Jr, MD BAQSIMI ONE PACK 3 MG/DOSE POWD glucagon 76373643612 Zaki Guajardo Jr, MD ELIQUIS 5 MG TABS apixaban 96447435759 Zaki Guajardo Jr, MD LISINOPRIL 5 MG TABS lisinopril 33587474084 Zaki Guajardo Jr, MD CARVEDILOL 12.5 MG TABS TAKE ONE TABLET BY MOUTH TWICE DAILY WITH MEALS carvedilol 60434276531 Zaki Guajardo Jr, MD METFORMIN HCL 500 MG TABS TAKE 2 TABLETS BY MOUTH TWICE DAILY WITH MEALS metformin 66434684064 Zaki Guajardo Jr, MD ATORVASTATIN CALCIUM 40 MG TABS atorvastatin 98140454203 Zaki Guajardo Jr, MD AMOXICILLIN 500 MG CAPS TAKE 4 CASULES BY MOUTH 30 TO 60 MINUTES BEFORE PROCEDURE amoxicillin 65976171617 Zaki Guajardo Jr, MD MODAFINIL 200 MG TABS Take 1-2 tablet by mouth every morning as needed modafinil 06329688793 Zaki Guajardo Jr, MD MODAFINIL 200 MG TABS 1-2 tablet by mouth every morning as needed modafinil 70927965475 Zaki Guajardo Jr, MD ZALEPLON 10 MG CAPS 1 orally qhs prn for middle of the night awakenings (do not dose after 3am) ZALEPLON 95152716677 Chris Phan MD AMIODARONE HCL 200 MG TABS Take 2 tablets (400 mg) by mouth daily for 4 days, then decrease to 1 tablet (200 mg) daily AMIODARONE HCL 11220386587 Chris Phan MD WARFARIN SODIUM 5 MG TABS Take 1 tablet (5 mg) by mouth daily On 07/12 and 07/12 with INR to drawn on 07/13 then dosed per INR. WARFARIN SODIUM 18848911129 Chris Phan MD METOPROLOL SUCCINATE ER 25 MG [id number] Take 1.5 tablets (37.5 mg) by mouth 2 times daily METOPROLOL SUCCINATE 27680108217 Chris Pahn MD LEVETIRACETAM 1000 MG TABS TAKE TWO TABLETS BY MOUTH TWICE DAILY LEVETIRACETAM 44456288205 Chris Phan MD CALCIUM-MAGNESIU M 500-250 MG ORAL TABLET one daily headache prevention CALCIUM-MAGNESI UM 37701754644 Zaki Guajardo Jr, MD LAMOTRIGINE 100 MG TABS 1 PO BID ( with the 200 mg tablets) LAMOTRIGINE 44018130747 Chris Phan MD NUVIGIL 250 MG TABS 1 orally QAM (monitor for rash); GUADALUPE ARMODAFINIL 17637373684 Zaki Guajardo Jr, MD LEVETIRACETAM 1000 MG TABS TAKE TWO TABLETS BY MOUTH TWICE DAILY LEVETIRACETAM 59694036727 Chris Phan MD NUVIGIL 250 MG TABS 1 orally QAM (monitor for rash); GUADALUPE ARMODAFINIL 37484426069 Zaki Guajardo Jr, MD LAMOTRIGINE 200 MG TABS TAKE ONE TABLET BY MOUTH TWICE DAILY LAMOTRIGINE 75462184953 Chris Phan MD RIBOFLAVIN 400 MG TABS One pill daily for migraine prevention RIBOFLAVIN 10860268460 Zaki Guajardo Jr, MD TROSPIUM CHLORIDE ER 60 MG [id number] TAKE 1 CAPSULE BY MOUTH DAILY. THIS REPLACES THE NON-COVERED VIAZ TROSPIUM CHLORIDE [id number] Zaki Guajardo Jr, MD LAMOTRIGINE 200 MG TABS 1 PO BID LAMOTRIGINE 95377388465 Chris Phan MD TROSPIUM CHLORIDE ER 60 MG [id number] TAKE 1 CAPSULE BY MOUTH DAILY. THIS REPLACES THE NON-COVERED TOVIAZ TROSPIUM CHLORIDE [id number] Tamera Locke LAMOTRIGINE 100 MG TABS 2 PO BID LAMOTRIGINE 44487377382 Anthony Christiansen MD CALCIUM-MAGNESIU M 500-250 MG ORAL TABLET one daily headache prevention CALCIUM-MAGNESI UM 93598946594 Jacquie Rutledge DNP,NEPHROLOGY SOCIAL WORKER,CLIENT APPLICATION SUPPORT SPECIALIST RIBOFLAVIN 400 MG TABS One pill daily for migraine prevention RIBOFLAVIN 64540032669 Jacquie Rutledge DNP,NEPHROLOGY SOCIAL WORKER,CLIENT APPLICATION SUPPORT SPECIALIST ASPIRIN CHILDRENS 81 MG CHEW 1 QD ASPIRIN 91371966393 Zaki Guajardo Jr, MD PLAVIX 75 MG TABS 1 po daily CLOPIDOGREL BISULFATE 74712604786 Zaki Guajardo Jr, MD HYDROCODONE-ACET AMINOPHEN 5-325 MG TABS 1 po Q 4 hours PRN HYDROCODONE-JOANA TAMINOPHEN 23916491987 Zaki Guajardo Jr, MD ZALEPLON 10 MG CAPS 1 orally QHS prn for middle of the night awakenings (do not dose after 3am) ZALEPLON 95855476834 Zaki Guajardo Jr, MD MODAFINIL 200 MG TABS 1-2 orally QAM prn MODAFINIL 46671123230 Zaki Guajardo Jr, MD PLAVIX 75 MG TABS 1 po daily CLOPIDOGREL BISULFATE 22104203598 Anthoyn Christiansen MD DOXAZOSIN MESYLATE 4 MG TABS One pill daily DOXAZOSIN MESYLATE 30427340163 Jacquie Rutledge DNP,NEPHROLOGY SOCIAL WORKER,CLIENT APPLICATION SUPPORT SPECIALIST DOXAZOSIN MESYLATE 4 MG TABS One pill daily DOXAZOSIN MESYLATE 61591647636 Jacquie Rutledge DNP,NEPHROLOGY SOCIAL WORKER,CLIENT APPLICATION SUPPORT SPECIALIST NUVIGIL 250 MG TABS 1 orally QAM ARMODAFINIL 98797400015 Jacquie Rutledge DNP,NEPHROLOGY SOCIAL WORKER,CLIENT APPLICATION SUPPORT SPECIALIST HYDROCODONE-ACET AMINOPHEN 5-325 MG TABS 1 po Q 4 hours PRN HYDROCODONE-JOANA TAMINOPHEN 73486954589 Anthony Christiansen MD NUVIGIL 250 MG TABS 1 orally QAM ARMODAFINIL 31048459135 Zaki Guajardo Jr, MD NUVIGIL 150 MG TABS 1/2 to 1 QAM ARMODAFINIL 35114109557 Zaki Guajardo Jr, MD NUVIGIL 150 MG TABS 1/2 to 1 QAM ARMODAFINIL 27752090429 Zaki Guajardo Jr, MD DOXAZOSIN MESYLATE TABS DOXAZOSIN MESYLATE TABS 90594125571 Anthony Christiansen MD LUNESTA 2 MG TABS one pill press cutter awakening ESZOPICLONE 66456589577 Anthony Christiansen MD CALCIUM-MAGNESIU M 500-250 MG ORAL TABLET one daily headache prevention CALCIUM-MAGNESI UM 19627085215 Jacquie Rutledge DNP,NEPHROLOGY SOCIAL WORKER,CLIENT APPLICATION SUPPORT SPECIALIST RIBOFLAVIN 100 MG ORAL CAPSULE one daily Headache prevention RIBOFLAVIN 29489139851 Jacquie Rutledge DNP,NEPHROLOGY SOCIAL WORKER,CLIENT APPLICATION SUPPORT SPECIALIST VICODIN TAB 500-5MG one q4h severe migraine ACETAMINOPHEN-H YDROCODONE 07997128250 Anthony Christiansen MD LUNESTA 2 MG TABS one pill press cutter awakening ESZOPICLONE 93172690897 Anthony Christiansen MD DOXAZOSIN MESYLATE TABS DOXAZOSIN MESYLATE TABS 17267431533 Zaki Guajardo Jr, MD TRILEPTAL 600 MG TABS one twice a day OXCARBAZEPINE 48621305371 Anthony Christiansen MD HYDROCODONE-ACET AMINOPHEN 5-325 MG TABS 1-2 po q4-6h prn severe headache HYDROCODONE-JOANA TAMINOPHEN 75743467820 Anthony Christiansen MD MIDRIN 325-65-100 MG CAPS 2 po prn APAP-ISOMETHEPT PRANAY-DICHLORAL 04518450316 Jacquie Rutledge DNP,NEPHROLOGY SOCIAL WORKER,CLIENT APPLICATION SUPPORT SPECIALIST KEPPRA 1000 MG TABS 2 pills twice daily LEVETIRACETAM 52061023318 Chris Phan MD HYDROCODONE-ACET AMINOPHEN 5-325 MG TABS 1-2 po q4-6h prn severe headache HYDROCODONE-JOANA TAMINOPHEN 08141772093 Anthony Christiansen MD AMITRIPTYLINE HCL 10 MG TABS Take 1-3 pills every early evening AMITRIPTYLINE HCL 48543580149 Anthony Christiansen MD UROXATRAL 10 MG [id number] 1 po qd ALFUZOSIN HCL 36025455001 Jacquie Rosadoigel DNP,NEPHROLOGY SOCIAL WORKER,CLIENT APPLICATION SUPPORT SPECIALIST RHINOCORT AQUA 32 MCG/ACT NASAL SUSPENSION one spray each nostril twice a day BUDESONIDE (NASAL) 18661546569 Jacquie Rosadoigel DNP,NEPHROLOGY SOCIAL WORKER,CLIENT APPLICATION SUPPORT SPECIALIST AMITRIPTYLINE HCL 10 MG TABS Take 1-3 pills every early evening AMITRIPTYLINE HCL 77911250093 Jacquie Rosadoigel DNP,NEPHROLOGY SOCIAL WORKER,CLIENT APPLICATION SUPPORT SPECIALIST MIDRIN 325-65-100 MG CAPS 2 po prn APAP-ISOMETHEPT PRANAY-DICHLORAL 73207929665 Anthony Christiansen MD MIDRIN CAP one to two for migraine NOT GENERIC APAP-ISOMETHEPT PRANAY-DICHLORAL 32549511659 Anthony Christiansen MD KEPPRA 750 MG TABS take as directed LEVETIRACETAM 29364179883 Silvia Lopez RN UROXATRAL 10 MG [id number] 1 po qd ALFUZOSIN HCL 18207112153 Anthony Christiansen MD MIDRIN CAP one to two for migraine NOT GENERIC APAP-ISOMETHEPT PRANAY-DICHLORAL 95875945255 Anthony Christiansen MD FIORICET TAB one as needed for parker during work ACETAMINOPHEN-C AFF-BUTALBITAL 40231950904 Anthony Christiansen MD FIORICET TAB one as needed for parker during work ACETAMINOPHEN-C AFF-BUTALBITAL 73140156625 Anthony Christiansen MD KEPPRA 1000 MG TAB twice a day KEPPRA 1000 MG TAB Anthony Christiansen MD TRILEPTAL 300MG 1 QID TRILEPTAL 300MG Anthony Christiansen MD KEPPRA 500 MG TABS 4 tabs BID LEVETIRACETAM 05188764210 Anthony Christiansen MD KEPPRA 1000 MG TAB twice a day KEPPRA 1000 MG TAB Anthony Christiansen MD TRILEPTAL 600 MG TABS one twice a day OXCARBAZEPINE 52563518368 Anthony Christiansen MD KEPPRA 500 MG TABS take as directed. LEVETIRACETAM 47221625969 Anthony Christiansen MD KEPPRA 750 MG TABS take as directed LEVETIRACETAM 17389612310 Anthony Christiansen MD KEPPRA 250 MG TABS one half tid and full hs LEVETIRACETAM 10222616111 Dinah Franco KEPPRA 250 MG TABS one half tid and full hs LEVETIRACETAM 56902372236 Anthony Christiansen MD NEURONTIN 400 MG CAPS 1200mg am, 1200mg afternoon, 400hs GABAPENTIN 11251908360 Jacquie Rutledge DNP,NEPHROLOGY SOCIAL WORKER,CLIENT APPLICATION SUPPORT SPECIALIST DECADRON TABS 0.5 MG 1 po BID DEXAMETHASONE 21670301823 Jacquie Rutledge DNP,NEPHROLOGY SOCIAL WORKER,CLIENT APPLICATION SUPPORT SPECIALIST RHINOCORT AQUA 32 MCG/ACT NASAL SUSPENSION one spray each nostril twice a day BUDESONIDE (NASAL) 49289024138 Anthony Christiansen MD KEPPRA 750 MG TABS po tid LEVETIRACETAM 68461431481 Anthony Christiansen MD KEPPRA 750 MG TABS one QD LEVETIRACETAM 29651870387 Anthony Christiansen MD KEPPRA 500 MG TABS as directed LEVETIRACETAM 86579978839 Anthony Christiansen MD NEURONTIN 400 MG CAPS 1200mg am, 1200mg afternoon, 400hs GABAPENTIN 32859675037 Anthony Christiansen MD MASON-D TBCR 60-120 MG 1 po qd FEXOFENADINE-PS EUDOEPHEDRINE 08273915473 nAthony Christiansen MD NEURONTIN 400 MG CAPS 1200mg am, 1200mg afternoon, 1600mg hs GABAPENTIN 39422871111 Anthony Christiansen MD TRILEPTAL 300MG 1 QID TRILEPTAL 300MG Anthony Christiansen MD TRILEPTAL 150MG 300mg QID TRILEPTAL 150MG Anthony Christiansen MD DECADRON TABS 0.5 MG 1 po BID DEXAMETHASONE 53324204645 Anthony Christiansen MD TRILEPTAL 150MG 300mg BID TRILEPTAL 150MG Dayana Magallanes TRILEPTAL 150 MG tid TRILEPTAL 150 MG Anthony Christiansen MD NEURONTIN 600 MG TABS 4000 mg per day GABAPENTIN 49784380745 Anthony Christiansen MD DECADRON TABS 0.5 MG as directed DEXAMETHASONE 58106489908 Anthony Christiansen MD DEPAKOTE SPRINKLES 125 MG CSDR 500mg qam, qhs 250mg afternoon DIVALPROEX SODIUM 09146924254 Anthony Christiansen MD DEPAKOTE SPRINKLES 125 MG CSDR 500mg qam, qhs 250mg afternoon DIVALPROEX SODIUM 12558534477 Dayana Magallanes DEPAKOTE SPRINKLES 125 MG CSDR 500mg qd DIVALPROEX SODIUM 73446933864 Dayana Magallanes DEPAKOTE SPRINKLES 125 MG CSDR 1 tid DIVALPROEX SODIUM 94894446951 Anthony Christiansen MD Medications Administered No information available. Allergies, Adverse Reactions, Alerts Allergy Name Reaction Description Start Date Severity Statu s Provider TEGRETOL Dermatological problems, e.g., rash, hives Critical Active Anthony espinoza MD TEGRTOL Critical No Longer Active Anthony Christiansen MD PHENOBARBITAL Critical Active Jacquie Rutledge DNP,NEPHROLOGY SOCIAL WORKER,CLIENT APPLICATION SUPPORT SPECIALIST DEPAKOTE Dermatological problems, e.g., rash, hives Critical Active Jacquie Rutledge DNP,NEPHROLOGY SOCIAL WORKER,CLIENT APPLICATION SUPPORT SPECIALIST TEGRTOL Critical No Longer Active Anthony Christiansen [...] [Mass/volume] in Serum or Plasma by Electrophoresis [id number] * g/dL beta 2 g lobulin [id number] * g/dL beta 1 g lobulin ALPHA [...] 08/08/16 12:42 REFERRING PHYSICIAN NAME: ANTHONY CHRISTIANSEN [facility] Fall Risk Screening completed. Fall risk assessment Rx Refill: eRx Request for M ODAFINIL 200 MG TABLET ESM_RR [id number]`MODAF INIL 200 MG TABLET```180 Tablet`30`TAKE 1-2 TABLETS BY MOUTH EVERY MORNING FOR PAIN.`This request is for a new prescription for a controlled substance as required by Federal/State law.``0`01/25/20 16`No date sent`[facility]`[id number] 3`[id number]`` MODAFINIL 200 MG TABLET Quantity: 180 Tablet Instructions: TAKE 1-2 TABLETS BY MOUTH EVERY MORNING FOR PAIN. B e-scripts abelardo pacheco refill request Office Visit: 1 YEAR 7 12:31- 08/08/17 12:31 REFERRING PHYSICIAN NA... 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 Office Visit: 1 YEAR FLUP [...] Yes Consent To Release information to the [employer] [place] ([employer]) Plan of Care Type Date Detail Appointment 11:00 AM Zaki nelson Jr, MD, [address] [facility] [address], [address], [place], [address], Pending order Follow up Pending order Follow [...] Panel (8) 20 13/10/00 ORDERS AST (SGOT) CPT-T0731K ProHance Gadolinium- based MR Contrast - 20 ml vial CPT-55089 MRI Brain W/WO CPT-61760 EEG Setup CPT-78472 Video EEG 2-12hrs () 11/06 CPT-45590 Video EEG 2-12hrs (Jessie) 11/21/19 CPT-H7611K ProHance Gadolinium- based MR Contrast - 20 ml vial ORDERS EEG 2hr [id number] MRI-Brain W/WO ORDERS Instructions for Staff 09/20 ORDERS Follow up in clinic ORDERS CPAP Order ORDERS Sleep Apnea Handout ORDERS CPAP Handout ORDERS Patient Instructions ORDERS Drug Monitor 8 (ETOH/AMP/BZO/Buprenepherine/KAIDEN/Heroin/THC /MDMA/OPI/OXY) Urine [facility]-[id number] Documentation of current medicatio ns ORDERS Essential [...] with Diff/Platelet 09/20 ORDERS Lamotrigine (Lamictal) 09/20 [facility]-[id number] Documentation of current medicatio ns [facility]-[id number] Documentation of current medicatio ns ORDERS Sleep Apnea Handout ORDERS CPAP Handout ORDERS Patient Instructions ORDERS CPAP Order ORDERS Telemedicine Follow up 05/20 ORDERS AST (SGOT) [facility]-[id number] Documentation of current medicatio ns ORDERS Basic Metabolic Panel (8) 20 10/10/00 ORDERS CBC with Diff/Platelet 09/20 ORDERS Lamotrigine (Lamictal) 09/20 ORDERS Follow up ORDERS EEG Video [id number] MRI-Brain Seizure Protocol W/O CPT-95010 MRI Brain W/WO CPT-Y0143E ProHance Gadolinium- based MR Contrast - 15 ml vial ORDERS CPAP Order [facility]-[id number] Documentation of current medicatio ns ORDERS Patient Instructions ORDERS Follow up ORDERS AST (SGOT) [facility]-[id number] Documentation of current medicatio ns ORDERS Basic Metabolic Panel (8) 08/09/28 ORDERS CBC with Diff/Platelet 09/17 ORDERS Lamotrigine (Lamictal) 09/17 ORDERS Follow up ORDERS Patient Instructions [facility]-[id number] Other Referral [facility]-[id number] Documentation of current medicatio ns ORDERS Lamotrigine (Lamictal) 02/12 ORDERS Lamotrigine (Lamictal) 01/23 ORDERS Instructions for Staff 08/08 ORDERS AST (SGOT) ORDERS Basic Metabolic Panel (8) 06/08/20 ORDERS CBC with Diff/Platelet 08/08 ORDERS Lamotrigine (Lamictal) 08/08 ORDERS Levetiracetam (Keppra) 08/08 ORDERS Follow up ORDERS Follow up [facility]-[id number] Other Referral [facility]-[id number] Documentation of current medicatio ns ORDERS Patient Instructions ORDERS Follow up ORDERS EEG Video [id number] MRI-Brain Seizure Protocol W/WO 2 CPT-M9712K ProHance Gadolinium- based MR Contrast - 20 ml vial CPT-82348 MRI Brain W/WO CPT-0421077 VIDEO EEG MRB ENGINEER MONITORING (END) -- less than 12 hrs ORDERS Lamotrigine (Lamictal) 08/08 ORDERS Levetiracetam (Keppra) 08/08 ORDERS Follow up ORDERS Basic Metabolic Panel (8) 05/08/20 ORDERS CBC with Diff/Platelet 08/08 ORDERS Follow up SCT-[id number] Other Referral ORDERS Instructions for Staff 05/17 ORDERS Patient Instructions [facility]-[id number] Documentation of current medicatio ns ORDERS Follow up ORDERS Follow up [facility]CT-[id number] Documentation of current medicatio ns ORDERS Lamotrigine (Lamictal) 03/22 ORDERS Levetiracetam (Keppra) 03/22 ORDERS Basic Metabolic Panel (8) 20 04/04/03 S[facility]-[id number] Other Referral [facility]-[id number] Documentation of current medicatio ns SCT-[id number] Other Referral [facility]-[id number] Documentation of current medicatio ns [id number] Documentation of current medicatio ns [id number] Other Referral CPT-32485 MRI Brain W/WO CPT-L4739X ProHance Gadolinium- based MR Contrast - 20 ml vial [id number] MRI-Brain W/WO [id number] Documentation of current medicatio ns ORDERS Prostrate-Specific AG Serum ORDERS Testosterone Free and Total ORDERS Comp Metabolic Panel (14) 20 02/02/07 ORDERS CBC with Diff/Platelet 01/24 ORDERS Hemoglobin A1C ORDERS Levetiracetam (Keppra) 01/24 ORDERS Oxcarbazepine (Trileptal) 20 02/02/07 ORDERS Electrolyte Panel [id number] Documentation of current medicatio ns [id number] Documentation of current medicatio ns [id number] Other Referral ORDERS Follow up ORDERS Follow up [id number] Documentation of current medicatio ns CPT-F5364E MultiHance Gadoliniu m-based MR Contrast - 15 ml vial CPT-44277 MRA Neck W/WO CPT-03104 XRAY Hip (Unilateral/Min 2 Views) CPT-99705 MRA Head W/O CPT-15602 MRA Neck W/O CPT-Q0040A ProHance Gadolinium- based MR Contrast - 20 ml vial CPT-51880 MRI Brain W/WO CPT-9197279 VIDEO EEG MRB ENGINEER MONITORING (END) -- less than 12 hrs CPT-66267 MRI Brain W/WO [id number] ProHance Cody-based MR Contrast - 20 ml vi al [id number] ProHance Cody-based MR Contrast - 20 ml vi al CPT-38407 MRI Brain W/WO CPT-61806 Polysomnography, with CPAP (78375) 05/12 [id number] ProHance Cody-based M R Contrast - 17 ml prefilled CPT-20021 MRI Brain W/WO A9579 ProHance Cody-based M R Contrast, 17 ml prefilled CPT-85747 MRI Brain (With & Without Contrast) 10/21 A9579 ProHance Cody-based M R Contrast, 17 ml prefilled CPT-37975 MRI Brain (With & Without Contrast) 01/19 CPT-86116 Chem-Face ONLY CPT-J0585 Botox 1 vial CPT-43812 E&M Service (same day as procedure) 05/22 CPT-92485 E&M Service (same day as procedure) 02/27 CPT-J0585 Botox 1 vial CPT-38281 Chem-Face ONLY Vital Signs Date Name Value [...]
--- OUTSIDE RECORDS SUMMARY | 2024-12-12 00:28 | XMS_ITS | Encounter Summary ---
Author Organization [facility] Address [address] [place] [address]. [place] [address] Care Team Providers Care Skimmer Name Role Phone Wilber Vidales MD Primary Care Provider [phone] Stephie Mahoney MD Unavailable [phone] Federica Foster RN Unavailable +[phone] Unavailable [phone] Stephie Mahoney MD Unavailable [phone] Olga Garcia RN Unavailable [phone] Junior Chavira MD Unavailable [phone] Shantel Walker MD Unavailable [phone] Junior Chavira MD Unavailable [phone] Coni Dhaliwal REGIONAL COORDINATOR Unavailable [phone] Anel Long NP Unavailable Reason for Visit * Reason Comments Lung Nodule Pneumonia of both lo wer lobes due to infectous organism Encounter Details Date Type Department Care Team (Latest Contact Info) Description 12/01/2024 10:00 AM CDT Oncology Visit [facility] [address] [place] [address] [address] [facility] [place] [phone] Angel Balbuena MD [address] [place] [address] Pleural effusion (Primary Dx) Social [...] often do you attend chur ch or baptist services? 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 Vidales, I saw Santy Glez in consultation for the evaluation and treatment [...] Surgeon: Juan Wu MD; Location[facility] REPLACE VALVE AORTIC N/A [...] this encounter Nursing Notes * Jodi Myers, TREE PULLER - 12/01/2024 10:00 AM CDT Oncology Rooming [...] not needed today. Pharmacy name entered into Workables: [id number] - [place], [place] - [address] [place] [address] [facility] [place], [place] - [address] Frailty Screening: Is the patient here for a new oncology consult visit in cancer care? 2. No PHQ9: Did this patient require a PHQ9?: No Clinical concerns: new patient Jodi Myers CMA documented in this encounter Plan of Treatment Upcoming Encounters Date Type Department Care Team (Late st Contact Info) Description 12/17/2024 9:30 AM CDT Lab [facility] [place] Laboratory [address] [place] [address] 12/23/2024 4:00 PM CDT Office Visit [facility] [address] [place] [address] [phone] Cyrus Aleman MD [address] [place] [address] 01/27/2025 10:00 AM CDT Office Visit [facility] Neurology [facility] [address] [place] [address] 200 [place] [phone] Anel Long, DOOR FITTER [address] [place], [place] [address] Coni Dhaliwal, REGIONAL COORDINATOR [address] [facility] 450 [place], [place] [address] 04/14/2025 11:15 AM CDT Office Visit [facility] Heart [facility] [address] [facility] [address] [place] [phone] Inessa Esteves DO [address] [place], [place] [address] 06/05/2025 12:30 PM CDT Office Visit [facility] Endocrinology Clinic [address] [phone] Stephie Mahoney MD [address] [place] [address] 11/13/2025 11:00 AM CDT Virtual Visit [facility] Endocrinology Clinic [address] [phone] Stephie Mahoney MD [address] [place] [address] 567645 documented as of this encounter Visit Diagnoses Diagnosis Pleural effusion- Primary Unspecified pleural effusion documented in this encounter Care Teams Skimmer Relationship Specialty [place] [address] [place] [address] PCP - General Family Practice 11/21/16 Stephie Mahoney MD [address] [place] [address] Endocrinology, Diabetes, and Metabolism 04/22/21 Federica Foster RN [address] [place] [address] Outside Salesman Diabetes Education 04/22/[address] [place] [address] Outside Salesman Nutrition 04/22/21 Stephie Mahoney MD [address] [place] [address] Assigned Endocrinology Provider 05/08/21 Olga Garcia, RN Specialty Equipment Processer Storage INTERNAL MEDICINE - ENDOCRINOLOGY, DIABETES & METABOLISM 09/29/22 Junior Chavira MD [address] [place] 318[address] Cardiovascular Disease 05/29/24 [place] [address] [place] [address] Assigned PCP 07/12/24 Junior Chavira MD [address] [place] 510465 Assigned Heart and Vascular Provider 08/11/24 Coni Dhaliwal REGIONAL COORDINATOR [address] [place] 728075 Nurse Practitioner Psychiatry & Neurology Vascular Neurology 11/04/24 Anel Long NP [address] [address] Nurse Practitioner Psychiatry & Neurology Vascular Neurology 11/04/24 documented as of this encounter
--- OUTSIDE RECORDS SUMMARY | 2024-12-12 00:28 | XMS_ITS | Encounter Summary ---
Author Organization [facility] Address [address] [place] [address]. [place] [address] Care Team Providers Care Project Asst Name Role Phone Wilber Vidales MD Primary Care Provider [phone] Wilber Vidales MD Unavailable Matt Baez MD Unavailable [phone] iWlber Vidales MD Unavailable Wilber Vidales MD Unavailable Stephie Mahoney MD Unavailable [phone] Federica Foster RN Unavailable [phone] Unavailable [phone] Stephie Mahoney MD Unavailable [phone] Olga Garcia RN Unavailable [phone] Matt Baez MD Unavailable Junior Chavira MD Unavailable [phone] Shantel Walker MD Unavailable [phone] Junior Chavira MD Unavailable [phone] Coni Dhaliwal CNP Unavailable [phone] Anel Long NP Unavailable [phone] Angel Balbuena MD Unavailable [phone] Encounter Details Date Type Department Care Team (Late st Contact Info) Description 06/26/2019 MyC Medical Advice SH PHYS STANDARD [address] [place] [phone] Tiarra Poole, RN Social History Tobacco Use [...] and Family Once a week 03/17/2019 Attends Taoism Services More than 4 times per year [...] Answer Date Recorded PHQ-2 Score 0 08/27/2018 [facility] of Occupat ional Health - Occupational [...] AM CDT 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 Gender Identity Male 03/03/2019 9:24 PM CDT Sexual Orientation Straight 03/03/2019 9: 24 PM CDT documented as of this encounter Plan of Treatment Upcoming Encounters Date Type Department Care Team (Late st Contact Info) Description 12/17/2024 9:30 AM CDT Lab [facility] Laboratory [address] [place] [address] 12/23/2024 4:00 PM CDT Office Visit [facility] [address] [place] [address] [phone] Cyrus Aleman MD [address] [place] [address] 292415 01/27/2025 10:00 AM CDT Office Visit [facility] Neurology [facility] [address] [place] [address] 200 [place] [phone] Anel Long NP [address]392 [place], [place] 74[address] Coni Dhaliwal CNP [address] [address] 04/14/2025 11:15 AM CDT Office Visit [facility] Heart [facility] [address] [facility] [address] [place] [address] Inessa Esteves DO [address] [place] [address] 06/05/2025 12:30 PM CDT Office Visit [facility] Endocrinology [facility] [address] [place] [address] [phone] Stephie Mahoney MD [address] [place] [address] 11/13/2025 11:00 AM CDT Virtual Visit [facility] Endocrinology [address] [phone] Stephie Mahoney MD [address] [place] [address] [phone] documented as of this encounter Visit Diagnoses Not on filedocumented in this encounter Additional Health Concerns Infection Onset Date Last Indicated Resolved Time Rule Out COVID-19 03/10/2022 03/10/2022 03/10/2022 1:37 AM CDT COVID-19 03/10/2022 03/10/2022 03/31/2022 11:3 9 PM CDT Rule Out COVID-19 10/12/2024 10/12/2024 10/12/2024 11:31 AM DIE TRIPPER documented as of this encounter Care Teams Project Asst Relationship Specialty [place] [address] [place] [address] PCP - General Family Practice 11/21/16 [place] [address] [place] [address] Assigned PCP 10/31/20 01/29/21 Matt Baez MD [address] [place] [address] Assigned Heart and Vascular Provider 06/11/20 06/23/22 [place] [address] [place] [address] Assigned PCP 11/02/16 10/30/20 [place] [address] [place] [address] Assigned PCP 01/30/21 07/11/24 Stephie Mahoney MD [address] [place] [address] 775315 Endocrinology, Diabetes, and Metabolism 04/22/21 Federica Foster RN [address] [place] [address] [phone] Die Caster Diabetes Education 04/22/[address] [place] [address] Die Caster Nutrition 04/22/21 Stephie Mahoney MD [address] [place] [address] Assigned Endocrinology Provider 05/08/21 Olga Garcia, RN Specialty Newspaper Or Periodical Editor INTERNAL MEDICINE - ENDOCRINOLOGY, DIABETES & METABOLISM 09/29/22 Matt Baez MD [address] [place] [address] Assigned Heart and Vascular Provider 12/23/22 05/04/23 Junior Chavira MD [address] [place], [place] 825[address] Cardiovascular Disease 05/29/24 [place] [address] [place], [place] 7614[address] Assigned PCP 07/12/24 Junior Chavira MD [address] [place], [place] 6397[address] Assigned Heart and Vascular Provider 08/11/24 Coni Dhaliwal CNP [address] [place] 943675 Nurse Practitioner Psychiatry & Neurology Vascular Neurology 11/04/24 Anel Long NP [address] [place] 102135 Nurse Practitioner Psychiatry & Neurology Vascular Neurology 11/04/24 Angel Balbuena MD [address] [place] [address] [phone] Assigned Heart and Vascular Surgical Provider 12/10/24 documented as of this encounter
--- OUTSIDE RECORDS SUMMARY | 2024-12-12 00:28 | XMS_ITS | Encounter Summary ---
Author Organization [facility] Address [address] [place] [address]. [place] [address] Care Team Providers Care Safety Investigator/Cause Analyst Name Role Phone Wilber Vidales MD Primary Care Provider [phone] Wilber Vidales MD Unavailable Matt Baez MD Unavailable [phone] Wilber Vidales MD Unavailable Wilber Vidales MD Unavailable Stephie Mahoney MD Unavailable [phone] Federica Foster RN Unavailable [phone] Unavailable [phone] Stephie Mahoney MD Unavailable [phone] Olga Garcia RN Unavailable [phone] Matt Baez MD Unavailable Junior Chavira MD Unavailable [phone] Shantel Walker MD Unavailable [phone] Junior Chavira MD Unavailable [phone] Coni Dhaliwal CNP Unavailable [phone] Anel Long NP Unavailable [phone] Angel Balbuena MD Unavailable [phone] Encounter Details Date Type Department Care Team (Late st Contact Info) Description 06/26/2019 MyC Medical Advice SH PHYS STANDARD [address] [place] [address] Tiarra Poole, RN Social History Tobacco Use [...] Answer Date Recorded PHQ-2 Score 0 08/27/2018 [facility] [place] of Occupat ional Health - Occupational Stress [...] AM CDT 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 Gender Identity Male 03/03/2019 9:24 PM CDT Sexual Orientation Straight 03/03/2019 9: 24 PM CDT documented as of this encounter Plan of Treatment Upcoming Encounters Date Type Department Care Team (Late st Contact Info) Description 12/17/2024 9:30 AM CDT Lab [facility] Laboratory [address] [place] [address] 12/23/2024 4:00 PM CDT Office Visit [facility] [address] [place] [address] [phone] Cyrus Aleman MD [address] [place] [address] 390025 01/27/2025 10:00 AM CDT Office Visit [facility] Neurology [facility] [address] [place] [address] 200 [place] [phone] Anel Long NP [address] [place], [place] [address] Coni Dhaliwal CNP [address] [address] 04/14/2025 11:15 AM CDT Office Visit [facility] Heart [facility] [address] [facility] [address] [place] [address] Inessa Esteves DO [address] [place] [address] 06/05/2025 12:30 PM CDT Office Visit [facility] Endocrinology [facility] [address] [place] [address] [phone] Stephie Mahoney MD [address] [place] [address] 11/13/2025 11:00 AM CDT Virtual Visit [facility] Endocrinology [address] [phone] Stephie Mahoney MD [address] [place] [address] 512105 documented as of this encounter Visit Diagnoses Not on filedocumented in this encounter Additional Health Concerns Infection Onset Date Last Indicated Resolved Time Rule Out COVID-19 03/10/2022 03/10/2022 03/10/2022 1:37 AM CDT COVID-19 03/10/2022 03/10/2022 03/31/2022 11:3 9 PM CDT Rule Out COVID-19 10/12/2024 10/12/2024 10/12/2024 11:31 AM FAMILY RESOURCE SPECIALIST documented as of this encounter Care Teams Safety Investigator/Cause Analyst Relationship Specialty [place] [address] [address] [address] [address] PCP - General Family Practice 11/21/16 [place] [address] [place] [address] Assigned PCP 10/31/20 01/29/21 Matt Baez MD [address] [place] [address] Assigned Heart and Vascular Provider 06/11/20 06/23/22 [place] [address] [place] [address] Assigned PCP 11/02/16 10/30/20 [place] [address] [place] [address] Assigned PCP 01/30/21 07/11/24 Stephie Mahoney MD [address] [place] [address] 807985 Endocrinology, Diabetes, and Metabolism 04/22/21 Federica Foster RN [address] [place] [address] [phone] Costumer Diabetes Education 04/22/[address] [place] [address] Costumer Nutrition 04/22/21 Stephie Mahoney MD [address] [place] [address] Assigned Endocrinology Provider 05/08/21 Olga Garcia, RN Specialty Group Worker INTERNAL MEDICINE - ENDOCRINOLOGY, DIABETES & METABOLISM 09/29/22 Matt Baez MD [address] [place] [address] Assigned Heart and Vascular Provider 12/23/22 05/04/23 Junior Chavira MD [address] [place], [place] 5[address] Cardiovascular Disease 05/29/24 [place] [address] [place], [place] [address] Assigned PCP 07/12/24 Junior Chavira MD [address] [place], [place] 4846[address] Assigned Heart and Vascular Provider 08/11/24 Coni Dhaliwal CNP [address] [place] [address] Nurse Practitioner Psychiatry & Neurology Vascular Neurology 11/04/24 Anel Long NP [address] [place] 8[address]35 Nurse Practitioner Psychiatry & Neurology Vascular Neurology 11/04/24 Angel Balbuena MD [address] [place] [address] [phone] Assigned Heart and Vascular Surgical Provider 12/10/24 documented as of this encounter
--- OUTSIDE RECORDS SUMMARY | 2024-12-12 00:28 | XMS_ITS | Encounter Summary ---
Author Organization [facility] Address [address] [place] [address]. [place] [address] Care Team Providers Care Director Of Player Personnel Name Role Phone Wilber Vidales MD Primary Care Provider [phone] Wilber Vidales MD Unavailable Stephie Mahoney MD Unavailable [phone] Federica Foster RN Unavailable [phone] Unavailable [phone] Stephie Mahoney MD Unavailable [phone] Olga Garcia RN Unavailable [phone] Matt Baez MD Unavailable [phone] Juniro Chavira MD Unavailable [phone] Shantel Walker MD Unavailable [phone] Junior Chavira MD Unavailable [phone] Coni Dhaliwal CNP Unavailable [phone] Anel Long NP Unavailable [phone] Reason for Visit * Reason Onset Date Comments Appointment 10/12/2022 Encounter Details Date Type Department Care Team (Late st Contact Info) Description 10/12/2022 [facility] Endocrinology Clinic [address] 3rd [place] [address] Stephie Mahoney MD [address] [facility] 101 [place] [address] Appointment Social History Tobacco Use Types Packs/Day [...] How often do you attend chur or hindu services? 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 Gender Identity Male 03/03/2019 9:24 PM CDT [...] Nicole Stacy on 10/12/2022 at 11:30 AM E QUALITY documented in this encounter Plan of Treatment Upcoming Encounters Date Type Department Care Team (Late st Contact Info) Description 12/17/2024 9:30 AM CDT Lab [facility] Laboratory [address] [place] [address] 12/23/2024 4:00 PM CDT Office Visit [address] [phone] Cyrus Aleman MD [address] [place] [address] 769815 01/27/2025 10:00 AM CDT Office Visit [facility] Neurology [address] 200 [place] [address] Anel Long, OB GYN 9545 [place], [place] 0[address]135 Coni Dhaliwal, STRAIGHT LINE PRESS SETTER [address] [address] 04/14/2025 11:15 AM CDT Office Visit [facility] Heart [facility] [address] [place] [address] [address] [place] [phone] Inessa Esteves, [address] [place] [address] 06/05/2025 12:30 PM CDT Office Visit [facility] Endocrinology Clinic [address] [place] [phone] Stephie Mahoney MD [address] [place] [address] 11/13/2025 11:00 AM CDT Virtual Visit [facility] Endocrinology Clinic [address] [phone] Stephie Mahoney MD [address] [place] [address] 066445 documented as of this encounter Visit Diagnoses Not on filedocumented in this encounter Additional Health Concerns Infection Onset Date Last Indicated Resolved Time Rule Out COVID-19 10/12/2024 10/12/2024 10/12/2024 11:31 AM NURSE QUALITY documented as of this encounter Care Teams Director Of Player Personnel Relationship Specialty [place] [address] [address] [address] PCP - General Family Practice 11/21/16 [place] [address] [address] [address] Assigned PCP 01/30/21 07/11/24 Stephie Mahoney MD [address] [place] [address] Endocrinology, Diabetes, and Metabolism 04/22/21 Federica Foster, RN 420 [place] [address] Project Technician Diabetes Education 04/22/[address] [facility] [address] [address] Project Technician Nutrition 04/22/21 Stephie Mahoney MD 420 [facility] 101 [place] [address] Assigned Endocrinology Provider 05/08/21 Olga Garcia RN Specialty Street Department Dispatcher INTERNAL MEDICINE - ENDOCRINOLOGY, DIABETES & METABOLISM 09/29/22 Matt Baez MD [address] [place] [address] Assigned Heart and Vascular Provider 12/23/22 05/04/23 Junior Chavira MD [address] [place] 49[address] Cardiovascular Disease 05/29/24 [place] [address] [place] [address] Assigned PCP 07/12/24 Junior Chavira MD [address] [place] 8[address]385 Assigned Heart and Vascular Provider 08/11/24 Coni Dhaliwal, STRAIGHT LINE PRESS SETTER [address] [place] [address] Nurse Practitioner Psychiatry & Neurology Vascular Neurology 11/04/24 Anel Long NP [address] [address] Nurse Practitioner Psychiatry & Neurology Vascular Neurology 11/04/24 documented as of this encounter
--- OUTSIDE RECORDS SUMMARY | 2024-12-12 00:28 | XMS_ITS | Encounter Summary ---
Author Organization [facility] Address [address] [place] [address]. [place] [address] Care Team Providers Care Shuttle Bus Driver Name Role Phone Wilber Vidales MD Primary Care Provider [phone] Stephie Mahoney MD Unavailable [phone] Federica Foster RN Unavailable +[phone] Unavailable [phone] Stephie Mahoney MD Unavailable [phone] Olga Garcia RN Unavailable +[phone] Junior Chavira MD Unavailable +[phone] Shantel Walker MD Unavailable [phone] Junior Chavira MD Unavailable [phone] Coni Dhaliwal CNP Unavailable [phone] Anel Long NP Unavailable [phone] Encounter Details Date Type Department Care [...] often do you attend chur ch or advent services? 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 Gender Identity Male 03/03/2019 9:24 PM CDT Sexual Orientation Straight 03/03/2019 9: 24 PM CDT documented as of this encounter Plan of Treatment Upcoming Encounters Date Type Department Care Team (Late st Contact Info) Description 12/17/2024 9:30 AM CDT Lab [facility] Laboratory [address] [place] [address] 12/23/2024 4:00 PM CDT Office [place] [address] [place] [address] Cyrus Aleman MD [address] [place] [address] 01/27/2025 10:00 AM CDT Office Visit [facility] Neurology [address] [place] [address] Anel Long, APPLIANCE INSTALLER [address] [place] [address] [place] [address] Coni Dhaliwal, COREY [address] [place] [address] 04/14/2025 11:15 AM CDT Office Visit [facility] Heart [facility] [address] [facility] [address] [place] [address] Inessa Esteves DO [address] [place] [address] 06/05/2025 12:30 PM CDT Office Visit [facility] Endocrinology Clinic [address] [phone] Stephie Mahoney MD [address] [place] [address] 11/13/2025 11:00 AM CDT Virtual Visit [facility] Endocrinology [address] [phone] Stephie Mahoney MD [address] [place] [address] 885745 documented as of this encounter Visit Diagnoses Not on filedocumented in this encounter Care Teams Shuttle Bus Driver Relationship Specialty [place] [address] [place] [address] PCP - General Family Practice 11/21/16 Stephie Mahoney MD [address] [phone] Endocrinology, Diabetes, and Metabolism 04/22/21 Federica Foster, RN 420 [place], [place] 66[address] Patient Partner Diabetes Education 04/22/[address] [place] [address] 125954 Patient Partner Nutrition 04/22/21 Stephie Mahoney MD [address] [place] [address] 177435 Assigned Endocrinology Provider 05/08/21 Olga Garcia RN Specialty Fast Food Restaurant Manager INTERNAL MEDICINE - ENDOCRINOLOGY, DIABETES & METABOLISM 09/29/22 Junior Chavira MD [address] [place] 4889[address] Cardiovascular Disease 05/29/24 [place] [address] [place] [address] Assigned PCP 07/12/24 Junior Chavira MD [address] [place] 817305 Assigned Heart and Vascular Provider 08/11/24 Coni Dhaliwal, CHRISTMAS TREE FARM WORKER [address] [place] [address] Nurse Practitioner Psychiatry & Neurology Vascular Neurology 11/04/24 Anel Long NP [address] [place] [address] Nurse Practitioner Psychiatry & Neurology Vascular Neurology 11/04/24 documented as of this encounter
--- OUTSIDE RECORDS SUMMARY | 2024-12-12 00:28 | XMS_ITS | Encounter Summary ---
Author Organization [facility] Address [address] [place] [address]. [place] [address] Care Team Providers Care Emergency Generator Mechanic Name Role Phone Wilber Vidales MD Primary Care Provider [phone] Wilber Vidales MD Unavailable Matt Baez MD Unavailable [phone] Wilber Vidales MD Unavailable Wilber Vidales MD Unavailable Stephie Mahoney MD Unavailable [phone] Federica Foster RN Unavailable [phone] Unavailable [phone] Stephie Mahoney MD Unavailable [phone] Olga Garcia RN Unavailable [phone] Matt Baez MD Unavailable Junior Chavira MD Unavailable [phone] Shantel Wakler MD Unavailable +[phone] Junior Chavira MD Unavailable [phone] Coni Dhaliwal CNP Unavailable [phone] Anel Long NP Unavailable [phone] Angel Balbuena MD Unavailable [phone] Reason for Visit * Reason Onset Date Comments Pt. Information/instruction 06/26/2019 Aort ic Valve replacement Encounter Details Date Type Department Care Team (Late st Contact Info) Description 06/26/2019 MyC Medical Advice [facility] [address] [facility], [address] [place] [address] [place] [address] [place] [address] Pt. Information/instruct ion (Aortic Valve [...] and Family Once a week 03/17/2019 Attends Sabianist Services More than 4 times per year [...] Answer Date Recorded PHQ-2 Score 0 08/27/2018 [facility] of Occupat ional Health - Occupational Stress [...] AM CDT Legal Sex Male 3:40 AM VP CONSTRUCTION Gender Identity Male 03/03/2019 9:24 PM CDT Sexual Orientation Straight 03/03/2019 9: 24 PM CDT documented as of this encounter Plan of Treatment Upcoming Encounters Date Type Department Care Team (Late st Contact Info) Description 12/17/2024 9:30 AM CDT Lab [facility] Laboratory [address] [place] [address] 12/23/2024 4:00 PM CDT Office Visit [place] [address] [place] [phone] Cyrus Aleman MD [address] [place] [address] 482365 01/27/2025 10:00 AM CDT Office Visit [facility] Neurology Clinic [address] [address] Anel Long, DEPARTMENT CHAIR [address] [facility] [place] [address]89[address] Coni Dhaliwal, COREY [address] [place] 566175 04/14/2025 11:15 AM CDT Office Visit [facility] Heart [facility] [address] [facility] [address] [place] [phone] Inessa Esteves DO [address] [place] 466[address] 06/05/2025 12:30 PM CDT Office Visit [facility] Endocrinology [address] [phone] Stephie Mahoney MD [address] [place] [address] 577395 11/13/2025 11:00 AM CDT Virtual Visit [facility] Endocrinology [address] [phone] Stephie Mahoney MD [address] [place] [address] 571905 documented as of this encounter Visit Diagnoses Not on filedocumented in this encounter Additional Health Concerns Infection Onset Date Last Indicated Resolved Time Rule Out COVID-19 03/10/2022 03/10/2022 03/10/2022 1:37 AM CDT COVID-19 03/10/2022 03/10/2022 03/31/2022 11:3 9 PM CDT Rule Out COVID-19 10/12/2024 10/12/2024 10/12/2024 11:31 AM VP CONSTRUCTION documented as of this encounter Care Teams Emergency Generator Mechanic Relationship Specialty [place] [address] [place] [address] PCP - General Family Practice 11/21/16 [place] [address] [place] [address] Assigned PCP 10/31/20 01/29/21 Matt Baez MD [address] [place] [address] Assigned Heart and Vascular Provider 06/11/20 06/23/22 [place] [address] [address] [place] [address] Assigned PCP 11/02/16 10/30/20 [place] [address] [place] [address] Assigned PCP 01/30/21 07/11/24 Stephie Mahoney MD [address] [address] Endocrinology, Diabetes, and Metabolism 04/22/21 Federica Foster RN [address] [place] [address] [phone] Ed Educational Aide Diabetes Education 04/22/[address] [place] [address] 178104 Ed Educational Aide Nutrition 04/22/21 Stephie Mahoney MD [address] [address] Assigned Endocrinology Provider 05/08/21 Olga Garcia, RN Specialty Weft Straightener INTERNAL MEDICINE - ENDOCRINOLOGY, DIABETES & METABOLISM 09/29/22 Matt Baez MD [address] [place] [address] Assigned Heart and Vascular Provider 12/23/22 05/04/23 Junior Chavira MD [address] [place] [address] Cardiovascular Disease 05/29/24 [place] [address] [place] [address] Assigned PCP 07/12/24 Junior Chavira MD [address] [place] [address] Assigned Heart and Vascular Provider 08/11/24 Coni Dhaliwal, VIDEO SURVEILLANCE TECHNICIAN [address] [place] [address] Nurse Practitioner Psychiatry & Neurology Vascular Neurology 11/04/24 Anel Long NP [address] [place] [address] Nurse Practitioner Psychiatry & Neurology Vascular Neurology 11/04/24 Angel Balbuena MD [address] [place], [place] [address] [address] Assigned Heart and Vascular Surgical Provider 12/10/24 documented as of this encounter
--- OUTSIDE RECORDS SUMMARY | 2024-12-12 00:28 | XMS_ITS | Encounter Summary ---
Author Organization [facility] Address [address] [place] [address]. [place] [address] Care Team Providers Care Test Deck Supervisor Name Role Phone Wilber Vidales MD Primary Care Provider [phone] Wilber Vidales MD Unavailable Matt Baez MD Unavailable [phone] Wilber Vidales MD Unavailable Wilber Vidales MD Unavailable Stephie Mahoney MD Unavailable [phone] Federica Foster RN Unavailable [phone] Unavailable [phone] Stephie Mahoney MD Unavailable [phone] Olga Garcia RN Unavailable [phone] Matt Baez MD Unavailable Junior Chavira MD Unavailable [phone] Shantel Walker MD Unavailable [phone] Junior Chavira MD Unavailable [phone] Coni Dhaliwal CNP Unavailable [phone] Anel Long NP Unavailable [phone] Angel Balbuena MD Unavailable [phone] Encounter Details Date Type Department Care Team (Late st Contact Info) Description 06/26/2019 MyC Medical Advice [facility] [place] 0682 [facility] [address] [place] [address] Juan Wu MD 2284 [facility] [address] [place] [address] Social History Tobacco [...] Answer Date Recorded PHQ-2 Score 0 08/27/2018 [facility] [place] of Occupat ional Health - Occupational Stress [...] AM CDT 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 METALWORKER Gender Identity Male 03/03/2019 9:24 PM CDT Sexual Orientation Straight 03/03/2019 9: 24 PM CDT documented as of this encounter Plan of Treatment Upcoming Encounters Date Type Department Care Team (Late st Contact Info) Description 12/17/2024 9:30 AM CDT Lab [facility] Laboratory [address] [place] [phone] 12/23/2024 4:00 PM CDT Office Visit [facility] [address] [place] [address] [phone] Cyrus Aleman MD [address] [place] [address] 335005 01/27/2025 10:00 AM CDT Office Visit [facility] Neurology [address] 200 [place] [address] Anel Long, FLIGHT TEST ENGINEER 0344 [place], [place] 6[address] Coni Dhaliwal, COREY [address] [address] 04/14/2025 11:15 AM CDT Office Visit [facility] [address] [facility] [address] [place] [address] Inessa Esteves [address] [place] [address] 06/05/2025 12:30 PM CDT Office Visit [facility] Endocrinology [address] [phone] Stephie Mahoney MD [address] [place] [address] 11/13/2025 11:00 AM CDT Virtual Visit [facility] Endocrinology [address] [phone] Stephie Mahoney MD [address] [place] [address] 864265 documented as of this encounter Visit Diagnoses Not on filedocumented in this encounter Additional Health Concerns Infection Onset Date Last Indicated Resolved Time Rule Out COVID-19 03/10/2022 03/10/2022 03/10/2022 1:37 AM CDT COVID-19 03/10/2022 03/10/2022 03/31/2022 11:3 9 PM CDT Rule Out COVID-19 10/12/2024 10/12/2024 10/12/2024 11:31 AM METALWORKER documented as of this encounter Care Teams Test Deck Supervisor Relationship Specialty [place] [address] [place] [address] PCP - General Family Practice 11/21/16 [place] [address] [place] [address] Assigned PCP 10/31/20 01/29/21 Matt Baez MD [address] [facility] [address] [place] [address] Assigned Heart and Vascular Provider 06/11/20 06/23/22 [place] [address] [place] [address] Assigned PCP 11/02/16 10/30/20 [place] [address] [place] [address] Assigned PCP 01/30/21 07/11/24 Stephie Mahoney MD [address] [place] [address] Endocrinology, Diabetes, and Metabolism 04/22/21 Federica Foster, RN [address] [place] [address] Historic Sites Registrar Diabetes Education 04/22/[address] [place] [address] Historic Sites Registrar Nutrition 04/22/21 Stephie Mahoney MD [address] [place] [address] Assigned Endocrinology Provider 05/08/21 Olga Gacria RN Specialty Rubbing Bed Operator INTERNAL MEDICINE - ENDOCRINOLOGY, DIABETES & METABOLISM 09/29/22 Matt aBez MD [address] [place], [place] [address] Assigned Heart and Vascular Provider 12/23/22 05/04/23 Junior Chavira MD [address] [place] 594065 Cardiovascular Disease 05/29/24 [place] [address] [place], [place] 43712[address] Assigned PCP 07/12/24 Junior Chavira MD [address] [place] [address]695 Assigned Heart and Vascular Provider 08/11/24 Coni Dhaliwal, COREY [address] [place] 57[address] Nurse Practitioner Psychiatry & Neurology Vascular Neurology 11/04/24 Anel Long NP [address] [place], [place] 74[address] Nurse Practitioner Psychiatry & Neurology Vascular Neurology 11/04/24 Angel Balbuena MD 909 [facility] [place], [place] 8[address] Assigned Heart and Vascular Surgical Provider 12/10/24 documented as of this encounter
--- OUTSIDE RECORDS SUMMARY | 2024-12-12 00:28 | XMS_ITS | Encounter Summary ---
Author Organization [facility] Address [address] [place] [address]. [place] [address] Care Team Providers Care Theater Projectionist Name Role Phone Wilber Vidales MD Primary Care Provider [phone] Stephie Mahoney MD Unavailable [phone] Federica Foster RN Unavailable [phone] Unavailable [phone] Stephie Mahoney MD Unavailable [phone] Olga Garcia RN Unavailable [phone] Junior Chavira MD Unavailable [phone] Shantel Walker MD Unavailable [phone] Junior Chavira MD Unavailable [phone] Coni Dhaliwal DYNAMITE PACKING MACHINE FEEDER Unavailable +[phone] Anel Long NP Unavailable [phone] Angel Balbuena MD Unavailable [phone] Encounter Details Date Type Department Care Team (Late st Contact Info) Description 11/30/2024 [facility] End[facility] Clinic [place] 711509 [facility] 3rd [place] [address] Stephie Mahoney MD 420 [facility] 101 [place] [address] Social History Tobacco Use Types Packs/Day Years [...] How often do you attend chur or worship services? More than 4 times [...] Answer Date Recorded PHQ-2 Score 0 11/14/2024 [facility] of Occupat ional Health - [...] AM CDT Legal Sex Male 3:40 AM RN ENDOCRINOLOGY Gender Identity Male 03/03/2019 9:24 PM CDT Sexual Orientation Straight 03/03/2019 9: 24 PM CDT documented as of this encounter Plan of Treatment Upcoming Encounters Date Type Department Care Team (Late st Contact Info) Description 12/17/2024 9:30 AM CDT Lab [facility] Laboratory [address] [place] [phone] 12/23/2024 4:00 PM CDT Office Visit [facility] 6545 [facility] 450 [place] [phone] Cyrus Aleman MD [address] [place] [address] 199995 01/27/2025 10:00 AM CDT Office Visit [facility] Neurology [facility] [address] [place] [address] 200 [place] [phone] Anel Long, GYROSCOPIC INSTRUMENT TESTER [address] [facility] [place] [place], [place] [address] Coni Dhaliwal, COREY 7936 [facility] 450 [place], [place] 4[address] 04/14/2025 11:15 AM CDT Office Visit [facility] Heart [facility] [address] [facility] [address] [place] [phone] Inessa Esteves DO 6405 [facility] [address] [place], [place] [address] 06/05/2025 12:30 PM CDT Office Visit [facility] Endocrinology [address] [phone] Stephie Mahoney MD [address] [place] [address] 455395 11/13/2025 11:00 AM CDT Virtual Visit [facility] Endocrinology [address]rd [place] [phone] Stephie Mahoney MD [address] [place] [address] [place] [address] documented as of this encounter Visit Diagnoses Not on filedocumented in this encounter Care Teams Theater Projectionist Relationship Specialty [place] [address] [address] [facility] [address] PCP - General Family Practice 11/21/16 Stephie Mahoney MD [address] [place] [address] Endocrinology, Diabetes, and Metabolism 04/22/21 Federica Foster RN [address] [place] [address] 460125 Solder Making Supervisor Diabetes Education 04/22/[address] [place] [address] Solder Making Supervisor Nutrition 04/22/21 Stephie Mahoney MD [address] [place] [address] Assigned Endocrinology Provider 05/08/21 Olga Garcia RN Specialty Refining Equipment Operator INTERNAL MEDICINE - ENDOCRINOLOGY, DIABETES & METABOLISM 09/29/22 Junior Chavira MD [address] [place] 678165 Cardiovascular Disease 05/29/24 [place] [address] [place] [address] Assigned PCP 07/12/24 Junior Chavira MD [address] [place] [address] Assigned Heart and Vascular Provider 08/11/24 Coni Dhaliwal, DYNAMITE PACKING MACHINE FEEDER [address] [place] [address] Nurse Practitioner Psychiatry & Neurology Vascular Neurology 11/04/24 Anel Long NP [address] [place] [address] Nurse Practitioner Psychiatry & Neurology Vascular Neurology 11/04/24 Angel Balbuena MD [address] [place] [address] Assigned Heart and Vascular Surgical Provider 12/10/24 documented as of this encounter
--- OUTSIDE RECORDS SUMMARY | 2024-12-12 00:29 | XMS_ITS | Encounter Summary ---
Author Organization [place] Address [address] [place] [address]. [place] [address] Care Team Providers Care Butcher Apprentice Name Role Phone Wilber Vidales MD Primary Care Provider [phone] Wilber Vidales MD Unavailable Matt Baez MD Unavailable [phone] Wilber Vidales MD Unavailable Wilber Vidales MD Unavailable Stephie Mahoney MD Unavailable [phone] Federica Foster RN Unavailable [phone] Unavailable [phone] Stephie Mahoney MD Unavailable +[phone] Olga Garcia RN Unavailable +[phone] Matt Baez MD Unavailable Junior Chavira MD Unavailable [phone] Shantel Walker MD Unavailable [phone] Junior Chavira MD Unavailable [phone] Coni Dhaliwal CNP Unavailable [phone] Anel Long NP Unavailable [phone] Angel Balbuena MD Unavailable [phone] Reason for Visit * Reason Onset Date Comments MyChart Communication 07/01/2019 echo Encounter Details Date Type Department Care Team (Late st Contact Info) Description 07/01/2019 MyC Medical Advice [facility], [address] [place] [address] [place] [address] [place] [address] MyChart Communication (echo) Social History [...] Answer Date Recorded PHQ-2 Score 0 08/27/2018 [facility] [place] of Occupat ional Health - Occupational Stress [...] AM CDT Legal Sex Male 3:40 AM SERVICE LEARNING COORDINATOR Gender Identity Male 03/03/2019 9:24 PM CDT Sexual Orientation Straight 03/03/2019 9: 24 PM CDT documented as of this encounter Miscellaneous Notes * Telephone Encounter - Mili Avitia RN - 07/01/2019 3:08 PM CST .Please review Webtalk message Respond directly to pt if appropriate. Mili Avitia RN BS ICE LEARNING COORDINATOR documented in this encounter Plan of Treatment Upcoming Encounters Date Type Department Care Team (Late st Contact Info) Description 12/17/2024 9:30 AM CDT Lab [facility] Laboratory [address] [place] [address] 12/23/2024 4:00 PM CDT Office Visit [address] [phone] Cyrus Aleman MD [address] [place] [address] 01/27/2025 10:00 AM CDT Office Visit [facility] Neurology Clinic [address] [place] [address] Anel Long NP [address] [place] [address] Coni Dhaliwal, COREY [address] [place] [address]825 04/14/2025 11:15 AM CDT Office Visit [facility] Heart [facility] [address] [facility] [address] [place] [phone] Inessa Esteves DO [address] [place] [address] 06/05/2025 12:30 PM CDT Office Visit [facility] Endocrinology Clinic [address] [phone] Stephie Mahoney MD [address] [place] [address] 390095 11/13/2025 11:00 AM CDT Virtual Visit [facility] Endocrinology [address] [phone] Stephie Mahoney MD [address] [place] [address] 603585 documented as of this encounter Visit Diagnoses Not on filedocumented in this encounter Additional Health Concerns Infection Onset Date Last Indicated Resolved Time Rule Out COVID-19 03/10/2022 03/10/2022 03/10/2022 1:37 AM CDT COVID-19 03/10/2022 03/10/2022 03/31/2022 11:3 9 PM CDT Rule Out COVID-19 10/12/2024 10/12/2024 10/12/2024 11:31 AM SERVICE LEARNING COORDINATOR documented as of this encounter Care Teams Butcher Apprentice Relationship Specialty [place] [address] [address] [address] PCP - General Family Practice 11/21/16 [place] [address] [place] [address] Assigned PCP 10/31/20 01/29/21 Matt Baez MD [address] [facility] [address] [place] 964565 Assigned Heart and Vascular Provider 06/11/20 06/23/22 [place] [address] [place] [address] Assigned PCP 11/02/16 10/30/20 [place] [address] [address] [address] Assigned PCP 01/30/21 07/11/24 Stephie Mahoney MD [address] 241285 Endocrinology, Diabetes, and Metabolism 04/22/21 Federica Foster, RN 420 [place], [place] 228[address] Collet Maker Diabetes Education 04/22/[address] [place] [address]1004 Collet Maker Nutrition 04/22/21 Stephie Mahoney MD 420 [facility] 101 [place], [place] 06[address] Assigned Endocrinology Provider 05/08/21 Olga Garcia, RN Specialty Service Desk Technician INTERNAL MEDICINE - ENDOCRINOLOGY, DIABETES & METABOLISM 09/29/22 Matt Baez MD [address] [place] [address]205 Assigned Heart and Vascular Provider 12/23/22 05/04/23 Junior Chavira MD [address] [place] 33[address] Cardiovascular Disease 05/29/24 [place] [address] [place] [address] Assigned PCP 07/12/24 Junior Chavira MD [address] [place] 904555 Assigned Heart and Vascular Provider 08/11/24 Coni Dhaliwal, CEMENT FINISHER APPRENTICE [address] [place] 518885 Nurse Practitioner Psychiatry & Neurology Vascular Neurology 11/04/24 Anel Long NP [address] [place], [place] [address] Nurse Practitioner Psychiatry & Neurology Vascular Neurology 11/04/24 Angel Balbuena MD [address] [place] [address] Assigned Heart and Vascular Surgical Provider 12/10/24 documented as of this encounter
--- OUTSIDE RECORDS SUMMARY | 2024-12-12 00:29 | XMS_ITS | Encounter Summary ---
Author Organization [facility] Address [address] [place] [address]. [place] [address] Care Team Providers Care Credentialing Coordinator Name Role Phone Wilber Vidales MD Primary Care Provider [phone] Matt Baez MD Unavailable Wilber Vidales MD Unavailable Stephie Mahoney MD Unavailable Federica Foster RN Unavailable Tova Welch RD Unavailable [phone] Stephie Mahoney MD Unavailable Olga Garcia RN Unavailable [phone] Matt Baez MD Unavailable +[phone] Junior Chavira MD Unavailable [phone] Shantel Walker MD Unavailable [phone] Junior Chavira MD Unavailable [phone] Coni Dhaliwal CNP Unavailable [phone] Anel Long NP Unavailable [phone] Angel Balbuena MD Unavailable [phone] Encounter Details Date Type Department Care Team (Late st Contact Info) Description 09/06/2021 MyC Medical Advice [facility] Endocrinology Clinic [address] [place] [address] Rebecca Harvey, RN Social History [...] Answer Date Recorded PHQ-2 Score 0 09/02/2021 [facility] [place] of Occupat ional Health - Occupational Stress [...] AM CDT 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 No / Unsure 09/01/2021 3:25 PM DETASSELER documented as of this encounter Plan of Treatment Upcoming Encounters Date Type Department Care Team (Late st Contact Info) Description 12/17/2024 9:30 AM CDT Lab [facility] Laboratory [address] [place] [phone] 12/23/2024 4:00 PM CDT Office Visit [facility] 6545 [facility] 450 [place] [phone] Cyrus Aleman MD [address] [place] [address] 442875 01/27/2025 10:00 AM CDT Office Visit [facility] Neurology [facility] [address] [place] [address] 200 [place] [phone] Anel Long, NUCLEAR PHARMACIST [address] [facility] [place] 5088[address] Coni Dhaliwal, COREY 0964 [facility] 450 [place], [place] [address] 04/14/2025 11:15 AM CDT Office Visit [facility] Heart [facility] [address] [facility] [address] [place] [phone] Inessa Esteves, [address] [facility] [address] [place], [place] [address] 06/05/2025 12:30 PM CDT Office Visit [facility] Endocrinology [address] [phone] Stephie Mahoney MD [address] [place] [address] 568795 11/13/2025 11:00 AM CDT Virtual Visit [facility] Endocrinology [address] [place] [phone] Stephie Mahoney MD [address] [address] documented as of this encounter Visit Diagnoses Not on filedocumented in this encounter Additional Health Concerns Infection Onset Date Last Indicated Resolved Time Rule Out COVID-19 03/10/2022 03/10/2022 03/10/2022 1:37 AM CDT COVID-19 03/10/2022 03/10/2022 03/31/2022 11:3 9 PM CDT Rule Out COVID-19 10/12/2024 10/12/2024 10/12/2024 11:31 AM DETASSELER documented as of this encounter Care Teams Credentialing Coordinator Relationship Specialty [place] [address] [place] [address] PCP - General Family Practice 11/21/16 Matt Baez MD [address] [address] Assigned Heart and Vascular Provider 06/11/20 06/23/22 [place] [address] [place] [address] Assigned PCP 01/30/21 07/11/24 Stephie Mahoney MD [address] [place] [address] Endocrinology, Diabetes, and Metabolism 04/22/21 Federica Foster, RN [address] [place] [address] 598365 Bleach Supervisor Diabetes Education 04/22/[address] [place] [address] [phone] Bleach Supervisor Nutrition 04/22/21 Stephie Mahoney MD [address] [place] [address] [address] [place], [place] 257075 Assigned Endocrinology Provider 05/08/21 Olga Garcia, RN Specialty Package Car Driver INTERNAL MEDICINE - ENDOCRINOLOGY, DIABETES & METABOLISM 09/29/22 Matt Baez MD [address] [place] [address] Assigned Heart and Vascular Provider 12/23/22 05/04/23 Junior Chavira MD [address] [place] 09[address]35 Cardiovascular Disease 05/29/24 [place] [address] [place] [address] Assigned PCP 07/12/24 Junior Chavira MD [address] [place], [place] 6967[address] Assigned Heart and Vascular Provider 08/11/24 Coni Dhaliwal, TOP AND TRIM WORKER [address] [place], [place] 0[address] Nurse Practitioner Psychiatry & Neurology Vascular Neurology 11/04/24 Aenl Long, TARIK [address] [place] 68[address] Nurse Practitioner Psychiatry & Neurology Vascular Neurology 11/04/24 Angel Balbuena MD 909 [place], [place] 230175 Assigned Heart and Vascular Surgical Provider 12/10/24 documented as of this encounter
--- OUTSIDE RECORDS SUMMARY | 2024-12-12 00:29 | XMS_ITS | Encounter Summary ---
Author Organization [facility] Address [address] [place] [address]. [place] [address] Care Team Providers Care Keeper Head Name Role Phone Wilber Vidales MD Primary Care Provider [phone] Wilber Vidales MD Unavailable Matt Baez MD Unavailable [phone] Wilber Vidales MD Unavailable Wilber Vidales MD Unavailable Stephie Mahoney MD Unavailable [phone] Federica Foster RN Unavailable [phone] Unavailable [phone] Stephie Mahoney MD Unavailable [phone] Olga Garcia RN Unavailable [phone] Matt Baez MD Unavailable Junior Chavira MD Unavailable [phone] Shantel Walker MD Unavailable [phone] Junior Chavira MD Unavailable [phone] Coni Dhaliwal CNP Unavailable [phone] Anel Long NP Unavailable [phone] Angel Balbuena MD Unavailable [phone] Encounter Details Date Type Department Care Team (Late st Contact Info) Description 07/01/2019 MyC Medical Advice [facility] [address] [place] [address] Tiarra Poole, RN Social History Tobacco Use [...] and Family Once a week 03/17/2019 Attends [employer] Services More than 4 times per year [...] Answer Date Recorded PHQ-2 Score 0 08/27/2018 [facility] [place] of Occupat ional Health - Occupational Stress [...] CDT 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 Gender Identity Male 03/03/2019 9:24 PM CDT Sexual Orientation Straight 03/03/2019 9: 24 PM CDT documented as of this encounter Plan of Treatment Upcoming Encounters Date Type Department Care Team (Late st Contact Info) Description 12/17/2024 9:30 AM CDT Lab [facility] [address] [place] [address] 12/23/2024 4:00 PM CDT Office Visit [facility] [address] [place] [phone] Cyrus Aleman MD [address] [place] [address] 272435 01/27/2025 10:00 AM CDT Office Visit [facility] Neurology [facility] [address] [place] [address] 200 [place] [phone] Anel Long NP 9890 [place], [place] 868[address] Coni Dhaliwal CNP [address] [address] 04/14/2025 11:15 AM CDT Office Visit [facility] Heart [facility] [address] [facility] [address] [place] [address] Inessa Esteves DO [address] [place] [address] 06/05/2025 12:30 PM CDT Office Visit [facility] Endocrinology [facility] [address] [place] [phone] Stephie Mahoney MD [address] [place] [address] 11/13/2025 11:00 AM CDT Virtual Visit [facility] Endocrinology [address] [phone] Stephie Mahoney MD [address] [place] [address] [phone] documented as of this encounter Visit Diagnoses Not on filedocumented in this encounter Additional Health Concerns Infection Onset Date Last Indicated Resolved Time Rule Out COVID-19 03/10/2022 03/10/2022 03/10/2022 1:37 AM CDT COVID-19 03/10/2022 03/10/2022 03/31/2022 11:3 9 PM CDT Rule Out COVID-19 10/12/2024 10/12/2024 10/12/2024 11:31 AM SALES SERVICE SUPERVISOR documented as of this encounter Care Teams Keeper Head Relationship Specialty [place] [address] [place] [address] PCP - General Family Practice 11/21/16 [place] [address] [address] [address] Assigned PCP 10/31/20 01/29/21 Matt Baez MD [address] [place] [address] Assigned Heart and Vascular Provider 06/11/20 06/23/22 [place] [address] [place] [address] Assigned PCP 11/02/16 10/30/20 [place] [address] [place] [address] Assigned PCP 01/30/21 07/11/24 Stephie Mahoney MD [address] [place] [address] 808395 Endocrinology, Diabetes, and Metabolism 04/22/21 Federica Foster RN [address] [place] [address] [phone] Manager Insurance Diabetes Education 04/22/[address] [place] [address] Manager Insurance Nutrition 04/22/21 Stephie Mahoney MD [address] [place] [address] Assigned Endocrinology Provider 05/08/21 Olga Garcia, RN Specialty Supervisor [employer] INTERNAL MEDICINE - ENDOCRINOLOGY, DIABETES & METABOLISM 09/29/22 Matt Baez MD [address] [place] [address] Assigned Heart and Vascular Provider 12/23/22 05/04/23 Junior Chavira MD [address] [place], [place] 7[address] Cardiovascular Disease 05/29/24 [place] [address] [address] [place], [place] 63299[address] Assigned PCP 07/12/24 Junior Chavira MD [address] [place], [place] 0[address] Assigned Heart and Vascular Provider 08/11/24 Coni Dhaliwal CNP [address] [place] 662175 Nurse Practitioner Psychiatry & Neurology Vascular Neurology 11/04/24 Anel Long NP [address] [place] 271905 Nurse Practitioner Psychiatry & Neurology Vascular Neurology 11/04/24 Angel Balbuena MD [address] [place] [address] [phone] Assigned Heart and Vascular Surgical Provider 12/10/24 documented as of this encounter
--- OUTSIDE RECORDS SUMMARY | 2024-12-12 00:29 | XMS_ITS | Encounter Summary ---
Author Organization [facility] Address [address] [place] [address]. [place] [address] Care Team Providers Care Executive Business Coach Name Role Phone Wilber Vidales MD Primary Care Provider [phone] Matt Baez MD Unavailable Wilber Vidales MD Unavailable Stephie Mahoney MD Unavailable Federica Foster RN Unavailable Tova Welch RD Unavailable [phone] Stephie Mahoney MD Unavailable Olga Garcia RN Unavailable [phone] Matt Baez MD Unavailable [phone] Junior Chavira MD Unavailable [phone] Shantel Walker MD Unavailable [phone] Junior Chavira MD Unavailable [phone] Coni Dhaliwal CNP Unavailable [phone] Anel Long NP Unavailable [phone] Angel Balbuena MD Unavailable [phone] Encounter Details Date Type Department Care Team (Late st Contact Info) Description 08/09/2021 MyC Medical Advice [facility] Diabetes Education [address] 3rd [place] [address] Federica Foster, RN 420 [place] [address] Social History Tobacco Use Types Packs/Day Years [...] 06/27/2021 How often do you attend [facility] or jain services? 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 Gender Identity Male 03/03/2019 9:24 PM CDT Sexual Orientation Straight 03/03/2019 9: 24 PM CDT documented as of this encounter Plan of Treatment Upcoming Encounters Date Type Department Care Team (Late st Contact Info) Description 12/17/2024 9:30 AM CDT [facility] [address] [place] [address] 12/23/2024 4:00 PM CDT Office Visit [facility] 6545 [facility] 450 [place] [phone] Cyrus Aleman MD [address] [place] [address] 01/27/2025 10:00 AM CDT Office Visit [facility] Neurology [facility] [address] [place] [address] 200 [place] [phone] Anel Long, HYDRAULIC PILE HAMMER OPERATOR [address] [facility] [place] [place] [address] Coni Dhaliwal, BOILERMAKER HELPER 7545 [facility] 450 [place], [place] [address] 04/14/2025 11:15 AM CDT Office Visit [facility] Heart [facility] [address] [facility] [address] [place] [phone] Inessa Esteves DO 6405 [facility] [address] [place], [place] [address]015 06/05/2025 12:30 PM CDT Office Visit [facility] Endocrinology Clinic [address] [phone] Stephie Mahoney MD [address] [place] [address] 405005 11/13/2025 11:00 AM CDT Virtual Visit [facility] Endocrinology Clinic [address] [phone] Stephie Mahoney MD [address] 349465 documented as of this encounter Visit Diagnoses Not on filedocumented in this encounter Additional Health Concerns Infection Onset Date Last Indicated Resolved Time Rule Out COVID-19 03/10/2022 03/10/2022 03/10/2022 1:37 AM CDT COVID-19 03/10/2022 03/10/2022 03/31/2022 11:3 9 PM CDT Rule Out COVID-19 10/12/2024 10/12/2024 10/12/2024 11:31 AM EPIC RADIANT ANALYST documented as of this encounter Care Teams Executive Business Coach Relationship Specialty [place] [address] [address] [address] [address] PCP - General Family Practice 11/21/16 Matt Baez MD [address] [facility] [address] [place] [address] Assigned Heart and Vascular Provider 06/11/20 06/23/22 [place] [address] [address] [address] Assigned PCP 01/30/21 07/11/24 Stephie Mahoney MD [address] [address] Endocrinology, Diabetes, and Metabolism 04/22/21 Federica Foster, RN 420 [place], [place] 210495 Roller Cleaner Diabetes Education 04/22/21 Tova Welch, OSCAR [address] [place] [address] Roller Cleaner Nutrition 04/22/21 Stephie Mahoney MD [address] [facility] 101 [place], [place] 1210[address] Assigned Endocrinology Provider 05/08/21 Olga Garcia, RN Specialty Technology Education Instructor INTERNAL MEDICINE - ENDOCRINOLOGY, DIABETES & METABOLISM 09/29/22 Matt Baez MD [address] [place], [place] 6[address]35 Assigned Heart and Vascular Provider 12/23/22 05/04/23 Junior Chavira MD [address] [place], [place] 539[address] Cardiovascular Disease 05/29/24 [place] [address] [place] [address] Assigned PCP 07/12/24 Junior Chavira MD [address] [place], [place] 086525 Assigned Heart and Vascular Provider 08/11/24 Coni Dhaliwal CNP [address] [place], [place] 8[address] Nurse Practitioner Psychiatry & Neurology Vascular Neurology 11/04/24 Anel Long NP [address] [place] [address] Nurse Practitioner Psychiatry & Neurology Vascular Neurology 11/04/24 Angel Balbuena MD [address] [place] [address] Assigned Heart and Vascular Surgical Provider 12/10/24 documented as of this encounter
--- OUTSIDE RECORDS SUMMARY | 2024-12-12 00:29 | XMS_ITS | Encounter Summary ---
Author Organization [facility] Address [address] [place] [address]. [place] [address] Care Team Providers Care Channel Account Manager Name Role Phone Wilber Vidales MD Primary Care Provider [phone] Wilber Vidales MD Unavailable Matt Baez MD Unavailable [phone] Wilber Vidales MD Unavailable Wilber Vidales MD Unavailable Stephie Mahoney MD Unavailable [phone] Federica Foster RN Unavailable [phone] Unavailable [phone] Stephie Mahoney MD Unavailable [phone] Olga Garcia RN Unavailable [phone] Matt Baez MD Unavailable Junior Chavira MD Unavailable [phone] Shantel Walker MD Unavailable [phone] Junior Chavira MD Unavailable [phone] Coni Dhaliwal CNP Unavailable [phone] Anel Long NP Unavailable [phone] Angel Balbuena MD Unavailable [phone] Encounter Details Date Type Department Care Team (Late st Contact Info) Description 07/02/2019 MyC Medical Advice [facility] PHYS STANDARD [address] [place] [address] Tiarra Poole, RN Social History Tobacco Use [...] PHQ-2 Score 0 08/27/2018 [facility] [place] of Occupat ional Health - Occupational Stress [...] AM CDT 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 Gender Identity Male 03/03/2019 9:24 PM CDT Sexual Orientation Straight 03/03/2019 9: 24 PM CDT documented as of this encounter Plan of Treatment Upcoming Encounters Date Type Department Care Team (Late st Contact Info) Description 12/17/2024 9:30 AM CDT Lab [facility] Laboratory [address] [place] [address] 12/23/2024 4:00 PM CDT Office Visit [facility] [address] [place] [phone] Cyrus Aleman MD [address] [place] [address] 418585 01/27/2025 10:00 AM CDT Office Visit [facility] Neurology [facility] [address] [place] [address] 200 [place] [phone] Anel Long NP 6898 [place], [place] 6[address] Coni Dhaliwal CNP [address] [address] 04/14/2025 11:15 AM CDT Office Visit [facility] Heart [facility] [address] [facility] [address] [place] [address] Inessa Esteves DO [address] [place] [address] 06/05/2025 12:30 PM CDT Office Visit [facility] Endocrinology [facility] [address] [place] [address] [phone] Stephie Mahoney MD [address] [place] [address] 11/13/2025 11:00 AM CDT Virtual Visit [facility] Endocrinology [address] [phone] Stephie Mahoney MD [address] [place] [address] 766735 documented as of this encounter Visit Diagnoses Not on filedocumented in this encounter Additional Health Concerns Infection Onset Date Last Indicated Resolved Time Rule Out COVID-19 03/10/2022 03/10/2022 03/10/2022 1:37 AM CDT COVID-19 03/10/2022 03/10/2022 03/31/2022 11:3 9 PM CDT Rule Out COVID-19 10/12/2024 10/12/2024 10/12/2024 11:31 AM COMMUNICATIONS COORDINATOR documented as of this encounter Care Teams Channel Account Manager Relationship Specialty [place] [address] [address] [address] PCP - General Family Practice 11/21/16 [place] [address] [address] [address] Assigned PCP 10/31/20 01/29/21 Matt Baez MD [address] [place] [address] Assigned Heart and Vascular Provider 06/11/20 06/23/22 [place] [address] [place] [address] Assigned PCP 11/02/16 10/30/20 [place] [address] [place] [address] Assigned PCP 01/30/21 07/11/24 Stephie Mahoney MD [address] [place] [address] 505555 Endocrinology, Diabetes, and Metabolism 04/22/21 Federica Foster RN [address] [place] [address] [phone] Utility Lineman Diabetes Education 04/22/[address] [place] [address] Utility Lineman Nutrition 04/22/21 Stephie Mahoney MD [address] [place] [address] Assigned Endocrinology Provider 05/08/21 Olga Garcia, RN Specialty Polish Compounder INTERNAL MEDICINE - ENDOCRINOLOGY, DIABETES & METABOLISM 09/29/22 Matt Baez MD [address] [place] [address] Assigned Heart and Vascular Provider 12/23/22 05/04/23 Junior Chavira MD [address] [place], [place] [address] Cardiovascular Disease 05/29/24 [place] [address] [place], [place] 3882244 Assigned PCP 07/12/24 Junior Chavira MD [address] [place], [place] 9[address] Assigned Heart and Vascular Provider 08/11/24 Coni Dhaliwal CNP [address] [place] [address]115 Nurse Practitioner Psychiatry & Neurology Vascular Neurology 11/04/24 Anel Long NP [address] [place] [place] 572755 Nurse Practitioner Psychiatry & Neurology Vascular Neurology 11/04/24 Angel Balbuena MD [address] [place] [address] 508565 Assigned Heart and Vascular Surgical Provider 12/10/24 documented as of this encounter
--- OUTSIDE RECORDS SUMMARY | 2024-12-12 00:29 | XMS_ITS | Encounter Summary ---
Author Organization [place] Address [address] [place] [address]. [place] [address] Care Team Providers Care Liquid Loader Name Role Phone Wilber Vidales MD Primary Care Provider [phone] Wilber Vidales MD Unavailable Stephie Mahoney MD Unavailable [phone] Federica Foster RN Unavailable +[phone] Unavailable [phone] Stephie Mahoney MD Unavailable [phone] Olga Garcia RN Unavailable [phone] Junior Chavira MD Unavailable +[phone] Shantel Walker MD Unavailable +[phone] Junior Chavira MD Unavailable [phone] Coni Dhaliwal PERSONAL CLOTHING LAUNDRY AIDE Unavailable +[phone] Anel Long NP Unavailable [phone] Angel Balbuena MD Unavailable [phone] Encounter Details Date Type Department Care Team (Late st Contact Info) Description 06/10/2024 [facility] [place] [address] [facility] 3rd [place] [address] Olga Garcia, RN Social History [...] Score 0 11/23/2023 [facility] - Occupational Stress Questionnaire Answer [...] AM CDT 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 Gender Identity Male 03/03/2019 9:24 PM CDT Sexual Orientation Straight 03/03/2019 9: 24 PM CDT documented as of this encounter Plan of Treatment Upcoming Encounters Date Type Department Care Team (Late st Contact Info) Description 12/17/2024 9:30 AM CDT Lab [facility] [address] [place] [address] 12/23/2024 4:00 PM CDT Office Visit [facility] [address] [facility] [address] [place] [phone] Cyrus Aleman MD [address] [place] [address] 397865 01/27/2025 10:00 AM CDT Office Visit [facility] Neurology [facility] [address] [place] [address] 200 [place] [phone] Anel Long, LEI SELLER [address] [place], [place] [address] Coni Dhaliwal CNP 6133 [facility] 450 [place], [place] [address] 04/14/2025 11:15 AM CDT Office Visit [facility] Heart [facility] [address] [facility] [address] [place] [phone] Inessa Esteves DO [address] [place], [place] [address] 06/05/2025 12:30 PM CDT Office Visit [facility] Endocr[facility]ology Clinic [address] [phone] Stephie Mahoney MD [address] [place] [address] 606075 11/13/2025 11:00 AM CDT Virtual Visit [facility] Endocrinology [address] [phone] Stephie Mahoney MD [address] [place] [address] documented as of this encounter Visit Diagnoses Not on filedocumented in this encounter Additional Health Concerns Infection Onset Date Last Indicated Resolved Time Rule Out COVID-19 10/12/2024 10/12/2024 10/12/2024 11:31 AM DRAMA PROFESSOR documented as of this encounter Care Teams Liquid Loader Relationship Specialty [place] [address] [place] [address] PCP - General Family Practice 11/21/16 [place] [address] [address] [address] Assigned PCP 01/30/21 07/11/24 Stephie Mahoney MD [address] [place] [address] Endocrinology, Diabetes, and Metabolism 04/22/21 Federica Foster RN [address] [place] [address] Chief [facility] Division Diabetes Education 04/22/[address] [place] [address]70 Chief [employer]son Division Nutrition 04/22/21 Stephie aMhoney MD [address] [place] [address] Assigned Endocrinology Provider 05/08/21 Olga Garcia RN Specialty Machine Former INTERNAL MEDICINE - ENDOCRINOLOGY, DIABETES & METABOLISM 09/29/22 Junior Chavira MD [address] [place] 233125 Cardiovascular Disease 05/29/24 [place] [address] [place] [address] Assigned PCP 07/12/24 Junior Chavira MD [address] [place] 397405 Assigned Heart and Vascular Provider 08/11/24 Coni Dhaliwal CNP [address] [place] 761785 Nurse Practitioner Psychiatry & Neurology Vascular Neurology 11/04/24 Anel Long NP [address] [place] 251865 Nurse Practitioner Psychiatry & Neurology Vascular Neurology 11/04/24 Angel Balbuena MD [address]09 [place], [place] 657495 Assigned Heart and Vascular Surgical Provider 12/10/24 documented as of this encounter
--- OUTSIDE RECORDS SUMMARY | 2024-12-12 00:29 | XMS_ITS | Encounter Summary ---
Author Organization [place] Address [address] [place] [address]. [place] [address] Care Team Providers Care Gas Charger Name Role Phone Wilber Vidales MD Primary Care Provider [phone] Wilber Vidales MD Unavailable Matt Baez MD Unavailable [phone] Wilber Vidales MD Unavailable Wilber Vidales MD Unavailable Stephie Mahoney MD Unavailable [phone] Federica Foster RN Unavailable [phone] Unavailable [phone] Stephie Mahoney MD Unavailable [phone] Olga Garcia RN Unavailable [phone] Matt Baez MD Unavailable Junior Chavira MD Unavailable [phone] Shantel Walker MD Unavailable [phone] Junior Chavira MD Unavailable [phone] Coni Dhaliwal CNP Unavailable [phone] Anel Long NP Unavailable [phone] Angel Balbuena MD Unavailable [phone] Encounter Details Date Type Department Care Team (Late st Contact Info) Description 06/26/2019 MyC Medical Advice [facility] Cardiothoracic [address] [place] [address] Ej Haines MD [address] [facility] 207 [place] [address] Social History Tobacco Use Types [...] and Family Once a week 03/17/2019 Attends [employer] Services More than 4 times per year [...] Answer Date Recorded PHQ-2 Score 0 08/27/2018 [facility] [place] of Occupat ional Health - Occupational Stress [...] AM CDT 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 Gender Identity Male 03/03/2019 9:24 PM CDT Sexual Orientation Straight 03/03/2019 9: 24 PM CDT documented as of this encounter Plan of Treatment Upcoming Encounters Date Type Department Care Team (Late st Contact Info) Description 12/17/2024 9:30 AM CDT Lab [facility] [address] [place] [phone] 12/23/2024 4:00 PM CDT Office Visit [address] [phone] Cyrus Aleman MD [address] [place] [address] 529975 01/27/2025 10:00 AM CDT Office Visit [facility] Neurology [address] 200 [place] [phone] Anel Long, HELMET HAT BRIM CUTTER 6556 [place], [place] 202575 Coni Dhaliwal, COREY [address] 100[address] 04/14/2025 11:15 AM CDT Office Visit [facility] Heart [facility] [address] [facility] [address] [place] [phone] LeroyreesevannesaEliazarInessasergio FunesDO [address] [place] [address] 06/05/2025 12:30 PM CDT Office Visit [facility] Endocrinology [address] 3rd [place] [phone] Stephie Mahoney MD [address] [place] [address] 179815 11/13/2025 11:00 AM CDT Virtual Visit [facility] Endocrinology [address] [phone] Stephie Mahoney MD [address] [place] [address] 573655 documented as of this encounter Visit Diagnoses Not on filedocumented in this encounter Additional Health Concerns Infection Onset Date Last Indicated Resolved Time Rule Out COVID-19 03/10/2022 03/10/2022 03/10/2022 1:37 AM CDT COVID-19 03/10/2022 03/10/2022 03/31/2022 11:3 9 PM CDT Rule Out COVID-19 10/12/2024 10/12/2024 10/12/2024 11:31 AM SOLID WASTE COLLECTION WORKER documented as of this encounter Care Teams Gas Charger Relationship Specialty [place] [address] [address] [place] [address] PCP - General Family Practice 11/21/16 [place] [address] [address] [address] Assigned PCP 10/31/20 01/29/21 Matt Baez MD [address] [facility] [address] [place] [address] Assigned Heart and Vascular Provider 06/11/20 06/23/22 [place] [address] [place] [address] Assigned PCP 11/02/16 10/30/20 [place] [address] [place] [address] Assigned PCP 01/30/21 07/11/24 Stephie Mahoney MD [address] [place] [address] Endocrinology, Diabetes, and Metabolism 04/22/21 Federica Foster RN [address] [place] [address] Supervisor Veneer Diabetes Education 04/22/[address] [place] [address] Supervisor Veneer Nutrition 04/22/21 Stephie Mahoney MD [address] [place] [address] Assigned Endocrinology Provider 05/08/21 Olga Garcia RN Specialty Transistor Tester INTERNAL MEDICINE - ENDOCRINOLOGY, DIABETES & METABOLISM 09/29/22 Matt Baez MD [address] [place] [address] Assigned Heart and Vascular Provider 12/23/22 05/04/23 Junior Chavira MD [address] [place] 9[address]35 Cardiovascular Disease 05/29/24 [place] [address] [place] [address] Assigned PCP 07/12/24 Junior Chavira MD [address] [place] [address] Assigned Heart and Vascular Provider 08/11/24 Coni Dhaliwal CNP [address] [place] [address] Nurse Practitioner Psychiatry & Neurology Vascular Neurology 11/04/24 Anel Long NP [address] [place] [address] Nurse Practitioner Psychiatry & Neurology Vascular Neurology 11/04/24 Angel Balbuena MD [address] [facility] [place], [place] [address]39[address] Assigned Heart and Vascular Surgical Provider 12/10/24 documented as of this encounter
--- OUTSIDE RECORDS SUMMARY | 2024-12-12 00:29 | XMS_ITS | Encounter Summary ---
Author Organization [place] Address [address] [place] [address]. [place] [address] Care Team Providers Care Fire Chief Deputy Name Role Phone Wilber Vidales MD Primary Care Provider [phone] Wilber Vidales MD Unavailable Matt Baez MD Unavailable [phone] Wilber Vidales MD Unavailable Wliber Vidales MD Unavailable Stephie Mahoney MD Unavailable [phone] Federica Foster RN Unavailable [phone] Unavailable [phone] Stephie Mahoney MD Unavailable [phone] Olga Garcia RN Unavailable [phone] Matt Baez MD Unavailable Junior Chavira MD Unavailable [phone] Shantel Walker MD Unavailable [phone] Junior Chavira MD Unavailable [phone] Coni Dhaliwal CNP Unavailable [phone] Anel Long NP Unavailable [phone] Angel Balbuena MD Unavailable [phone] Encounter Details Date Type Department Care Team (Late st Contact Info) Description 07/02/2019 MyC Medical Advice [facility] [address] [place] [phone] Tiarra Poole, RN Social History Tobacco Use [...] and Family Once a week 03/17/2019 Attends Christian Services More than 4 times per year [...] Answer Date Recorded PHQ-2 Score 0 08/27/2018 [facility] [place] of Occupat ional Health - Occupational Stress [...] AM CDT 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 Gender Identity Male 03/03/2019 9:24 PM CDT Sexual Orientation Straight 03/03/2019 9: 24 PM CDT documented as of this encounter Plan of Treatment Upcoming Encounters Date Type Department Care Team (Late st Contact Info) Description 12/17/2024 9:30 AM CDT Lab [facility] [address] [place] [address] 12/23/2024 4:00 PM CDT Office Visit [facility] [address] [place] [address] [phone] Cyrus Aleman MD [address] [place] [address] 159765 01/27/2025 10:00 AM CDT Office Visit [facility] Neurology [facility] [address] [place] [address] 200 [place] [phone] Anel Long NP 4618 [place], [place] 4[address] Coni Dhaliwal CNP [address] [address] 04/14/2025 11:15 AM CDT Office Visit [facility] Heart [facility] [address] [facility] [address] [place] [address] Inessa Esteves DO [address] [place] [address] 06/05/2025 12:30 PM CDT Office Visit [facility] Endocrinology [facility] [address] [place] [address] [phone] Stephie Mahoney MD [address] [place] [address] 11/13/2025 11:00 AM CDT Virtual Visit [facility] Endocrinology [address] [phone] Stephie Mahoney MD [address] [place] [address] 722675 documented as of this encounter Visit Diagnoses Not on filedocumented in this encounter Additional Health Concerns Infection Onset Date Last Indicated Resolved Time Rule Out COVID-19 03/10/2022 03/10/2022 03/10/2022 1:37 AM CDT COVID-19 03/10/2022 03/10/2022 03/31/2022 11:3 9 PM CDT Rule Out COVID-19 10/12/2024 10/12/2024 10/12/2024 11:31 AM ROUNDHOUSE WORKER documented as of this encounter Care Teams Fire Chief Deputy Relationship Specialty [place] [address] [address] [address] PCP - General Family Practice 11/21/16 [place] [address] [address] [address] Assigned PCP 10/31/20 01/29/21 Matt Baez MD [address] [place] [address] Assigned Heart and Vascular Provider 06/11/20 06/23/22 [place] [address] [place] [address] Assigned PCP 11/02/16 10/30/20 [place] [address] [place] [address] Assigned PCP 01/30/21 07/11/24 Stephie Mahoney MD [address] [place] [address] 057495 Endocrinology, Diabetes, and Metabolism 04/22/21 Federica Foster RN [address] [place] [address] [phone] [employer] Mechanic Diabetes Education 04/22/[address] [place] [address] [employer] Mechanic Nutrition 04/22/21 Stephie Mahoney MD [address] [place] [address] Assigned Endocrinology Provider 05/08/21 Olga Garcia, RN Specialty Chemical Dependency Nurse INTERNAL MEDICINE - ENDOCRINOLOGY, DIABETES & METABOLISM 09/29/22 Matt Baez MD [address] [place] [address] Assigned Heart and Vascular Provider 12/23/22 05/04/23 Junior Chavira MD [address] [place], [place] 178525 Cardiovascular Disease 05/29/24 [place] [address] [place], [place] 8558444 Assigned PCP 07/12/24 Junior Chavira MD [address] [place], [place] 941385 Assigned Heart and Vascular Provider 08/11/24 Coni Dhaliwal CNP [address] [place] 762505 Nurse Practitioner Psychiatry & Neurology Vascular Neurology 11/04/24 Anel Long NP [address] [place] 752775 Nurse Practitioner Psychiatry & Neurology Vascular Neurology 11/04/24 Angel Balbuena MD [address] [place] [address] 290575 Assigned Heart and Vascular Surgical Provider 12/10/24 documented as of this encounter
--- OUTSIDE RECORDS SUMMARY | 2024-12-12 00:30 | XMS_ITS | Encounter Summary ---
Author Organization [place] Address [address] [place] [address]. [place] [address] Care Team Providers Care Wheel Borer Name Role Phone Wilber Vidales MD Primary Care Provider [phone] Wilber Vidales MD Unavailable Stephie Mahoney MD Unavailable [phone] Federica Foster RN Unavailable [phone] Unavailable [phone] Stephie Mahoney MD Unavailable [phone] Olga Garcia RN Unavailable [phone] Junior Chavira MD Unavailable +[phone] Shantel Walker MD Unavailable +[phone] Junior Chavira MD Unavailable [phone] Coni Dhaliwal CEMENT SIDE LASTER Unavailable +[phone] Anel Long NP Unavailable [phone] Angel Balbuena MD Unavailable [phone] Encounter Details Date Type Department Care Team (Late st Contact Info) Description 07/02/2024 [facility] Endocrinology Clinic [place] [address] [facility] 3rd [place] [address] Stephie Mahoney MD 420 [facility] 101 [place], [place] 741395 Social History Tobacco Use Types Packs/Day Years [...] How often do you attend chur or methodist services? More than 4 times per year 07/12/2023 Do you belong to any clubs o r organizations such as rastafarian groups, unions, fraternal or athletic groups, or [...] Answer Date Recorded PHQ-2 Score 0 11/23/2023 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 Gender Identity Male 03/03/2019 9:24 PM CDT Sexual Orientation Straight 03/03/2019 9: 24 PM CDT documented as of this encounter Plan of Treatment Upcoming Encounters Date Type Department Care Team (Late st Contact Info) Description 12/17/2024 9:30 AM CDT Lab [facility] [address] [place] [phone] 12/23/2024 4:00 PM CDT Office Visit [facility] 6545 [facility] 450 [place] [phone] Cryus Aleman MD [address] [place] [address] 01/27/2025 10:00 AM CDT Office Visit [facility] Neurology [facility] [address] [place] [address] 200 [place] [phone] Anel Long FOCUSING MACHINE OPERATOR [address] [facility] [address] [place], [place] [address] Coni Dhaliwal, CEMENT SIDE LASTER [address] [facility] 450 [place], [place] 8[address] 04/14/2025 11:15 AM CDT Office Visit [facility] Heart [facility] [address] [facility] [address] [place] [phone] Inessa Esteves, [address] [facility] [address] [place], [place] [address] 06/05/2025 12:30 PM CDT Office Visit [facility] Endocrinology [address]rd [place] [address] Stephie Mahoney MD [address] [place] [place] [address] 009105 11/13/2025 11:00 AM CDT Virtual Visit [facility] Endocrinology [address]rd [place] [address] Stephie Mahoney MD [address] [place] [address] documented as of this encounter Visit Diagnoses Not on filedocumented in this encounter Additional Health Concerns Infection Onset Date Last Indicated Resolved Time Rule Out COVID-19 10/12/2024 10/12/2024 10/12/2024 11:31 AM INTAKE ASSESSOR documented as of this encounter Care Teams Wheel Borer Relationship Specialty [place] [address] [place] [address] PCP - General Family Practice 11/21/16 [place] [address] [place] [address] Assigned PCP 01/30/21 07/11/24 Stephie Mahoney MD [address] [place] [address] Endocrinology, Diabetes, and Metabolism 04/22/21 Federica Foster, RN [address] [place] [address] Preschool Teacher'S Assistant Diabetes Education 04/22/[address] [place] [address] Preschool Teacher'S Assistant Nutrition 04/22/21 Stephie Mahonye MD [address] [place] [address] Assigned Endocrinology Provider 05/08/21 Olga Garcia RN Specialty Rn Hemo Dialysis INTERNAL MEDICINE - ENDOCRINOLOGY, DIABETES & METABOLISM 09/29/22 Junior Chavira MD [address] [place] 259775 Cardiovascular Disease 05/29/24 [place] [address] [place] [address] Assigned PCP 07/12/24 Junior Chavira MD [address] [place] 820445 Assigned Heart and Vascular Provider 08/11/24 Coni Dhaliwal, COREY [address] [place] 236805 Nurse Practitioner Psychiatry & Neurology Vascular Neurology 11/04/24 Anel Long NP [address] [place] 6[address] Nurse Practitioner Psychiatry & Neurology Vascular Neurology 11/04/24 Angel Balbuena MD 909 [facility] [place] [address]77[address] Assigned Heart and Vascular Surgical Provider 12/10/24 documented as of this encounter
--- OUTSIDE RECORDS SUMMARY | 2024-12-12 00:30 | XMS_ITS | Encounter Summary ---
Author Organization [place] Address [address] [place] [address]. [place] [address] Care Team Providers Care Deep Tissue Massage Therapist Name Role Phone Wilber Vidales MD Primary Care Provider [phone] Matt Baez MD Unavailable [phone] Wilber Vidales MD Unavailable Stephie Mahoney MD Unavailable Federica Foster RN Unavailable Tova Welch RD Unavailable [phone] Stephie Mahoney MD Unavailable Olga Garcia RN Unavailable [phone] Matt Baez MD Unavailable [phone] Junior Chavira MD Unavailable [phone] Shantel [place] MD Unavailable +[phone] Junior Chavira MD Unavailable [phone] Coni Dhaliwal CNP Unavailable [phone] Anel Long NP Unavailable [phone] Angel Balbuena MD Unavailable Reason for Visit * Reason Onset Date Comments Refill Request 12/26/2021 modafinil (PROVI GERALDINE) 200 MG tablet Encounter Details Date Type Department Care Team (Late st Contact Info) Description 12/26/2021 Refill [facility] [address] [facility] [place] [phone] [place] [address] [place] [address] Refill Request (modafinil (PROVIGIL) 200 [...] any clubs o r organizations such as denominational groups, unions, fraternal or athletic groups, or [...] Answer Date Recorded PHQ-2 Score 0 09/02/2021 [facility] [place] of Occupat ional Health - Occupational Stress [...] AM CDT 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 Gender Identity Male 03/03/2019 9:24 PM [...] AM CDT Lab [facility] Laboratory [address] [place] [phone] 12/23/2024 4:00 PM CDT Office Visit [facility] 6545 [facility] 450 [place] [address] Cyrus Aleman MD [address] [place] [address] 214995 01/27/2025 10:00 AM CDT Office Visit [facility] Neurology [facility] [address] [place] [address] 200 [place] [phone] Anel Long, WEB ASSISTANT [address] [place] [address] Coni Dhaliwal, COREY [address] [facility] 450 [place] [address] 04/14/2025 11:15 AM CDT Office Visit [facility] Heart [facility] [address] [facility] [address] [place] [phone] Inessa Esteves DO [address] [place], [place] [address] 06/05/2025 12:30 PM CDT Office Visit [facility] Endocrinology Clinic [address] [place] [phone] Stephie Mahoney MD [address] [place] [address] 945385 11/13/2025 11:00 AM CDT Virtual Visit [facility] Endocrinology Clinic [address] [place] [phone] Stephie Mahoney MD [address] [place] [address] 939455 documented as of this encounter Visit Diagnoses Diagnosis 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, 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 documented in this encounter Additional Health Concerns Infection Onset Date Last Indicated Resolved Time Rule Out COVID-19 03/10/2022 03/10/2022 03/10/2022 1:37 AM CDT COVID-19 03/10/2022 03/10/2022 03/31/2022 11:3 9 PM CDT Rule Out COVID-19 10/12/2024 10/12/2024 10/12/2024 11:31 AM OPTICAL LAB TECHNICIAN documented as of this encounter Care Teams Deep Tissue Massage Therapist Relationship Specialty [place] [address] [address] [address] PCP - General Family Practice 11/21/16 Matt Baez MD [address] [place] [address] Assigned Heart and Vascular Provider 06/11/20 06/23/22 [place] [address] [address] [address] Assigned PCP 01/30/21 07/11/24 Stephie Mahoney MD [address] [address] Endocrinology, Diabetes, and Metabolism 04/22/21 Federica Foster, RN 420 [place] [address] Customer Service Supervisor Diabetes Education 04/22/[address] [place] [address] Customer Service Supervisor Nutrition 04/22/21 Stephie Mahoney MD [address] [address] Assigned Endocrinology Provider 05/08/21 Olga Garcia RN Specialty Produce Wrapper INTERNAL MEDICINE - ENDOCRINOLOGY, DIABETES & METABOLISM 09/29/22 Matt Baez MD [address] [address] [place] [address] Assigned Heart and Vascular Provider 12/23/22 05/04/23 Junior Chavira MD [address] [place] 24[address] Cardiovascular Disease 05/29/24 [place] [address] [place] [address] Assigned PCP 07/12/24 Junior Chavira MD [address] [place] [address] Assigned Heart and Vascular Provider 08/11/24 Coni Dhaliwal CNP [address] [place] [address] [place] [address] Nurse Practitioner Psychiatry & Neurology Vascular Neurology 11/04/24 Anel Long NP [address] [place] [place] [address] Nurse Practitioner Psychiatry & Neurology Vascular Neurology 11/04/24 Angel Balbuena MD [address] [place] [address] [phone] Assigned Heart and Vascular Surgical Provider 12/10/24 documented as of this encounter
--- OUTSIDE RECORDS SUMMARY | 2024-12-12 00:30 | XMS_ITS | Encounter Summary ---
Author Organization [place] Address [address] [place] [address]. [place] [address] Care Team Providers Care Buffing Machine Operator Name Role Phone Wilber Vidales MD Primary Care Provider [phone] Wilber Vidales MD Unavailable Matt Baez MD Unavailable [phone] Wilber Vidales MD Unavailable Wilber Vidales MD Unavailable Stephie Mahoney MD Unavailable [phone] Federica Foster RN Unavailable [phone] Unavailable [phone] Stephie Mahoney MD Unavailable [phone] Olga Garcia RN Unavailable [phone] Matt Baez MD Unavailable Junior Chavira MD Unavailable [phone] Shantel [place] MD Unavailable [phone] Junior Chavira MD Unavailable [phone] Coni Dhaliwal CNP Unavailable [phone] Anel Long NP Unavailable [phone] Angel Balbuena MD Unavailable [phone] Reason for Visit * Reason Onset Date Comments Medication Question 11/24/2019 Chlorthalido ne Encounter Details Date Type Department Care Team (Late st Contact Info) Description 11/24/2019 MyC Medical Advice 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 Gender Identity Male 03/03/2019 9:24 PM CDT [...] Info) Description 12/17/2024 9:30 AM CDT Lab [facility] Laboratory [address] [place] [phone] 12/23/2024 4:00 PM CDT Office Visit [address] [phone] Cyrus Aleman MD [address] [place] [address] 01/27/2025 10:00 AM CDT Office Visit [facility] Neurology [address] [address] Anel Long, HOTEL CONTROLLER [address] [place] [address] Coni Dhaliwal, COREY [address] [place] [address] 04/14/2025 11:15 AM CDT Office Visit [facility] Heart [facility] [address] [facility] [address] [place] [address] Inessa Esteves, [address] [place] [address] 06/05/2025 12:30 PM CDT Office Visit [facility] Endocrinology Clinic [address] [phone] Stephie Mahoney MD [address] [place] [address] 816005 11/13/2025 11:00 AM CDT Virtual Visit [facility] Endocrinology [address] [phone] Stephie Mahoney MD [address] [place] [address] 508845 documented as of this encounter Visit Diagnoses Diagnosis Benign essential hypertension- Primary Essential hypertension, benign documented in this encounter Additional Health Concerns Infection Onset Date Last Indicated Resolved Time Rule Out COVID-19 03/10/2022 03/10/2022 03/10/2022 1:37 AM CDT COVID-19 03/10/2022 03/10/2022 03/31/2022 11:3 9 PM CDT Rule Out COVID-19 10/12/2024 10/12/2024 10/12/2024 11:31 AM MEDICAL CSR documented as of this encounter Care Teams Buffing Machine Operator Relationship Specialty [place] [address] [place] [address] PCP - General Family Practice 11/21/16 [place] [address] [place] [address] Assigned PCP 10/31/20 01/29/21 Matt Baez MD [address] [place] [address] Assigned Heart and Vascular Provider 06/11/20 06/23/22 [place] [address] [place] [address] Assigned PCP 11/02/16 10/30/20 [place] [address] [place] [address] Assigned PCP 01/30/21 07/11/24 Stephie Mahoney MD [address] [place] [address] Endocrinology, Diabetes, and Metabolism 04/22/21 Federica Foster, RN [address] [place] [address] Bridge Painter Helper Diabetes Education 04/22/[address] [place] [address] Bridge Painter Helper Nutrition 04/22/21 Stephie Mahoney MD [address] [place] [address] 655845 Assigned Endocrinology Provider 05/08/21 Olga Garcia, RN Specialty Pet Care Attendant INTERNAL MEDICINE - ENDOCRINOLOGY, DIABETES & METABOLISM 09/29/22 Matt Baez MD [address] [place] 57[address] Assigned Heart and Vascular Provider 12/23/22 05/04/23 Junior Chavira MD [address] [place] 343435 Cardiovascular Disease 05/29/24 [place] [address] [place], [place] 5700444 Assigned PCP 07/12/24 Junior Chavira MD [address] [place], [place] 262985 Assigned Heart and Vascular Provider 08/11/24 Coni Dhaliwal, COREY [address] [place], [place] [address] Nurse Practitioner Psychiatry & Neurology Vascular Neurology 11/04/24 Anel Long NP [address] [place] [address] Nurse Practitioner Psychiatry & Neurology Vascular Neurology 11/04/24 Angel Balbuena MD [address] [place], [place] 89[address] Assigned Heart and Vascular Surgical Provider 12/10/24 documented as of this encounter
--- OUTSIDE RECORDS SUMMARY | 2024-12-12 00:30 | XMS_ITS | Encounter Summary ---
Author Organization [place] Address [address] [place] [address]. [place] [address] Care Team Providers Care Chemistry Quality Control Technician Name Role Phone Wilber Vidales MD Primary Care Provider [phone] Wilber Vidales MD Unavailable Matt Baez MD Unavailable [phone] Wilber Vidales MD Unavailable Wilber Vidales MD Unavailable Stephie Mahoney MD Unavailable [phone] Federica Foster RN Unavailable [phone] Unavailable [phone] Stephie Mahoney MD Unavailable [phone] Olga Garcia RN Unavailable [phone] Matt Baez MD Unavailable Junior Chavira MD Unavailable [phone] Shantel [place] MD Unavailable [phone] Junior Chavira MD Unavailable [phone] Coni Dhaliwal CNP Unavailable [phone] Anel Long NP Unavailable [phone] Angel Balbuena MD Unavailable [phone] Encounter Details Date Type Department Care Team (Late st Contact Info) Description 07/14/2019 MyC Medical Advice [facility] Cardiothoracic [address] [place] [address] Ej Haines MD [address] [facility] [address] [place] [address] Social History Tobacco Use Types [...] and Family Once a week 03/17/2019 Attends Orthodoxy Services More than 4 times per year [...] Score 0 08/27/2018 [facility] [place] of Occupat ional Health - Occupational Stress [...] AM CDT 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 Gender Identity Male 03/03/2019 9:24 PM CDT Sexual Orientation Straight 03/03/2019 9: 24 PM CDT documented as of this encounter Plan of Treatment Upcoming Encounters Date Type Department Care Team (Late st Contact Info) Description 12/17/2024 9:30 AM CDT Lab [facility] [address] [place] [phone] 12/23/2024 4:00 PM CDT Office Visit [address] [phone] Cyrus Aleman MD [address] [place] [address] 096945 01/27/2025 10:00 AM CDT Office Visit [facility] Neurology [address] [place] [phone] Anel Long, VASCULAR TECHNICIAN [address]25 [place], [place] [address] Coni Dhaliwal, COREY [address] 097855 04/14/2025 11:15 AM CDT Office Visit [facility] Heart [facility] [address] [facility] [address] [place] [phone] LeroyreesevannesaEliazarInessasergio FunesDO [address] [place] [address] 06/05/2025 12:30 PM CDT Office Visit [facility] Endocrinology [address] [place] [phone] Stephie Mahoney MD [address] [place] [address] 711905 11/13/2025 11:00 AM CDT Virtual Visit [facility] Endocrinology [address] [phone] Stephie Mahoney MD [address] [place] [address] 957925 documented as of this encounter Visit Diagnoses Not on filedocumented in this encounter Additional Health Concerns Infection Onset Date Last Indicated Resolved Time Rule Out COVID-19 03/10/2022 03/10/2022 03/10/2022 1:37 AM CDT COVID-19 03/10/2022 03/10/2022 03/31/2022 11:3 9 PM CDT Rule Out COVID-19 10/12/2024 10/12/2024 10/12/2024 11:31 AM LUNG GUN OPERATOR documented as of this encounter Care Teams Chemistry Quality Control Technician Relationship Specialty [place] [address] [address] [address] PCP - General Family Practice 11/21/16 [place] [address] [address] [address] Assigned PCP 10/31/20 01/29/21 Matt Baez MD [address] [facility] [address] [place] [address] Assigned Heart and Vascular Provider 06/11/20 06/23/22 [place] [address] [place] [address] Assigned PCP 11/02/16 10/30/20 [place] [address] [place] [address] Assigned PCP 01/30/21 07/11/24 Stephie Mahoney MD [address] [place] [address] Endocrinology, Diabetes, and Metabolism 04/22/21 Federica Foster RN [address] [place] [address] Cattle Alley Worker Diabetes Education 04/22/[address] [place] [address] Cattle Alley Worker Nutrition 04/22/21 Stephie Mahoney MD [address] [place] [address] Assigned Endocrinology Provider 05/08/21 Olga Garcia RN Specialty Graduate Research Assistant INTERNAL MEDICINE - ENDOCRINOLOGY, DIABETES & METABOLISM 09/29/22 Matt Baez MD [address] [place] [address] Assigned Heart and Vascular Provider 12/23/22 05/04/23 Junior Chavira MD [address] [place] [address] Cardiovascular Disease 05/29/24 [place] [address] [place] [address] Assigned PCP 07/12/24 Junior Chavira MD [address] [place] [address] Assigned Heart and Vascular Provider 08/11/24 Coni Dhaliwal CNP [address] [place] [address] Nurse Practitioner Psychiatry & Neurology Vascular Neurology 11/04/24 Anel Long NP [address] [place] [address] Nurse Practitioner Psychiatry & Neurology Vascular Neurology 11/04/24 Angel Balbuena MD [address] [facility] [place], [place] [address] Assigned Heart and Vascular Surgical Provider 12/10/24 documented as of this encounter
--- OUTSIDE RECORDS SUMMARY | 2024-12-12 00:30 | XMS_ITS | Encounter Summary ---
Author Organization [place] Address [address] [place] [address]. [place] [address] Care Team Providers Care Christmas Tree Farm Manager Name Role Phone Wilber Vidales MD Primary Care Provider [phone] Wilber Vidales MD Unavailable Stephie Mahoney MD Unavailable [phone] Federica Foster RN Unavailable [phone] Unavailable [phone] Stephie Mahoney MD Unavailable [phone] Olga Garcia RN Unavailable [phone] Junior Chavira MD Unavailable [phone] Shantel [place] MD Unavailable [phone] Junior Chavira MD Unavailable [phone] Coni Dhaliwal CNP Unavailable +[phone] Anel Long NP Unavailable [phone] Angel Balbuena MD Unavailable [phone] Encounter Details Date Type Department Care Team (Late st Contact Info) Description 07/07/2024 [facility] Medical Advice [facility] [address] [place] [address] Stew Lovell, MA Social History Tobacco Use [...] Answer Date Recorded PHQ-2 Score 0 11/23/2023 [facility] of Occupat ional Health [...] AM CDT Legal Sex Male 3:40 AM PACKAGE WINDER Gender Identity Male 03/03/2019 9:24 PM CDT Sexual Orientation Straight 03/03/2019 9: 24 PM CDT documented as of this encounter Plan of Treatment Upcoming Encounters Date Type Department Care Team (Late st Contact Info) Description 12/17/2024 9:30 AM CDT [facility] [address] [place] [address] 12/23/2024 4:00 PM CDT Office Visit [facility] 6545 [facility] [address] [place] [phone] Cyrus Aleman MD [address] [place] [address] 098935 01/27/2025 10:00 AM CDT Office Visit [facility] Neurology [facility] 1650 [facility] [address] [place] [phone] Anel Long, SOFTWARE ENGINEER INTERN [address] [place], [place] [address] Coni Dhaliwal CNP [address] [facility] 450 [place], [place] [address] 04/14/2025 11:15 AM CDT Office Visit [facility] Heart [facility] [address] [facility] [address] [place] [phone] Inessa Esteves DO [address] [place], [place] [address] 06/05/2025 12:30 PM CDT Office Visit [facility] Endocrinology Clinic [address] [place] [phone] Stephie Mahoney MD [address] [place] [address] 960905 11/13/2025 11:00 AM CDT Virtual Visit [facility] Endocrinology Clinic [address] [place] [phone] Stephie Mahoney MD [address] [place] [address] 278925 documented as of this encounter Visit Diagnoses Not on filedocumented in this encounter Additional Health Concerns Infection Onset Date Last Indicated Resolved Time Rule Out COVID-19 10/12/2024 10/12/2024 10/12/2024 11:31 AM PACKAGE WINDER documented as of this encounter Care Teams Christmas Tree Farm Manager Relationship Specialty [place] [address] [address] [address] PCP - General Family Practice 11/21/16 [place] [address] [address] [address] Assigned PCP 01/30/21 07/11/24 Stephie Mahoney MD [address] [place] [address] 238285 Endocrinology, Diabetes, and Metabolism 04/22/21 Federica Foster RN [address] [place] [address] 449015 Building Dismantler Diabetes Education 04/22/[address] [place] [address] 228994 Building Dismantler Nutrition 04/22/21 Stephie Mahoney MD [address] [place] [address] 200595 Assigned Endocrinology Provider 05/08/21 Olga Garcia, RN Specialty Energy Specialist INTERNAL MEDICINE - ENDOCRINOLOGY, DIABETES & METABOLISM 09/29/22 Junior Chavira MD [address] [place] [address] Cardiovascular Disease 05/29/24 [place] [address] [place] [address] Assigned PCP 07/12/24 Junior Chavira MD [address] [place] [address] Assigned Heart and Vascular Provider 08/11/24 Coni Dhaliwal CNP [address] [place] 54[address] Nurse Practitioner Psychiatry & Neurology Vascular Neurology 11/04/24 Anel Long NP [address] [place] 6[address] Nurse Practitioner Psychiatry & Neurology Vascular Neurology 11/04/24 Angel Balbuena MD [address]09 [place], [place] 8[address] Assigned Heart and Vascular Surgical Provider 12/10/24 documented as of this encounter
--- OUTSIDE RECORDS SUMMARY | 2024-12-12 00:30 | XMS_ITS | Encounter Summary ---
Author Organization [facility] Address [address] [place] [address]. [place] [address] Care Team Providers Care Credit Processor Name Role Phone Wilber Vidales MD Primary Care Provider [phone] Wilber Vidales MD Unavailable Matt Baez MD Unavailable [phone] Wilber Vidales MD Unavailable Wilber Vidales MD Unavailable Stephie Mahoney MD Unavailable [phone] Federica Foster RN Unavailable [phone] Unavailable [phone] Stephie Mahoney MD Unavailable [phone] Olga Garcia RN Unavailable [phone] Matt Baez MD Unavailable Junior Chavira MD Unavailable [phone] Shantel Walker MD Unavailable [phone] Junior Chavira MD Unavailable [phone] Coni Dhaliwal CNP Unavailable [phone] Anel Long NP Unavailable [phone] Angel Balbuena MD Unavailable [phone] Encounter Details Date Type Department Care Team (Late st Contact Info) Description 11/28/2019 MyC Medical Advice [facility] [address] [facility], [address] [place] [address] Roma Mcintyre, ENAMEL CRACKER Social History Tobacco Use Types Packs/Day Years [...] and Family Once a week 03/17/2019 Attends [employer] Services More than 4 times per year [...] Answer Date Recorded PHQ-2 Score 0 08/27/2018 [facility] of Occupat ional Health - Occupational Stress [...] AM CDT Legal Sex Male 3:40 AM RUBY ENGINEER Gender Identity Male 03/03/2019 9:24 PM [...] Info) Description 12/17/2024 9:30 AM CDT Lab [facility] Laboratory [address] [place] [phone] 12/23/2024 4:00 PM CDT Office Visit [address] [phone] Cyrus Aleman MD [address] [place] [address] 548055 01/27/2025 10:00 AM CDT Office Visit [facility] Neurology [address] [phone] Anel Long, ENGINE LATHE OPERATOR [address], [place] [address] Coni Dhaliwal, INFUSION PHARMACIST [address] [place] [address] 04/14/2025 11:15 AM CDT Office Visit [facility] Heart [facility] [address] [facility] [address] [place] [phone] LeroyInessa wesleyDO [address] [place], [place] [address] 06/05/2025 12:30 PM CDT Office Visit [facility] Endocrinology [address] [phone] Stephie Mahoney MD [address] 0450[address] 11/13/2025 11:00 AM CDT Virtual Visit [facility] Endocrinology [address] [phone] Stephie Mahoney MD [address] 826845 documented as of this encounter Visit Diagnoses Not on filedocumented in this encounter Additional Health Concerns Infection Onset Date Last Indicated Resolved Time Rule Out COVID-19 03/10/2022 03/10/2022 03/10/2022 1:37 AM CDT COVID-19 03/10/2022 03/10/2022 03/31/2022 11:3 9 PM CDT Rule Out COVID-19 10/12/2024 10/12/2024 10/12/2024 11:31 AM RUBY ENGINEER documented as of this encounter Care Teams Credit Processor Relationship Specialty [place] [address] [address] GONZALEZGIULIANAADELAIDE WERNER [address] PCP - General Family Practice 11/21/16 [place] [address] [place] [address] Assigned PCP 10/31/20 01/29/21 Matt Baez MD [address] [place] [address] Assigned Heart and Vascular Provider 06/11/20 06/23/22 [place] [address] [place] [address] Assigned PCP 11/02/16 10/30/20 [place] [address] [place] [address] Assigned PCP 01/30/21 07/11/24 Stephie Mahoney MD [address] [address] Endocrinology, Diabetes, and Metabolism 04/22/21 Federica Foster, RN [address] [place] [address] 204015 Iron Molder Helper Diabetes Education 04/22/[address] [place] [address] Iron Molder Helper Nutrition 04/22/21 Stephie Mahoney MD [address] [place] [address] Assigned Endocrinology Provider 05/08/21 Olga Garcia, RN Specialty Licensed Midwife INTERNAL MEDICINE - ENDOCRINOLOGY, DIABETES & METABOLISM 2/10/23 Matt Baez MD [address] [place] [address] Assigned Heart and Vascular Provider 12/23/22 05/04/23 Junior Chavira MD [address] [place] 745885 Cardiovascular Disease 05/29/24 [place] [address] [place] [address] Assigned PCP 07/12/24 Junior Chavira MD [address] [place], [place] 709[address] Assigned Heart and Vascular Provider 08/11/24 Coni Dhaliwal CNP [address] [place] 4[address]35 Nurse Practitioner Psychiatry & Neurology Vascular Neurology 11/04/24 Anel Long NP [address] [place] 08[address] Nurse Practitioner Psychiatry & Neurology Vascular Neurology 11/04/24 Angel Balbuena MD [address] [place], [place] [address] Assigned Heart and Vascular Surgical Provider 12/10/24 documented as of this encounter
--- OUTSIDE RECORDS SUMMARY | 2024-12-12 00:30 | XMS_ITS | Encounter Summary ---
Author Organization [facility] Address [address] [place] [address]. [place] [address] Care Team Providers Care Account Manager Name Role Phone Wilber Vidales MD Primary Care Provider [phone] Wilber Vidales MD Unavailable Matt Baez MD Unavailable [phone] Wilber Vidales MD Unavailable Wilber Vidales MD Unavailable Stephie Mahoney MD Unavailable [phone] Federica Foster RN Unavailable [phone] Unavailable [phone] Stephie Mahoney MD Unavailable [phone] Olga Garcia RN Unavailable [phone] Matt Baez MD Unavailable Junior Chavira MD Unavailable [phone] Shantel Walker MD Unavailable [phone] Junior Chavira MD Unavailable [phone] Coni Dhaliwal CNP Unavailable [phone] nAel Long NP Unavailable [phone] Angel Balbuena MD Unavailable [phone] Encounter Details Date Type Department Care Team (Late st Contact Info) Description 07/01/2019 MyC Medical Advice [facility] Cardiothoracic [address] [place] [address] Ej Haines MD [address] [facility] [address] [place] [address] Social History Tobacco Use Types [...] Answer Date Recorded PHQ-2 Score 0 08/27/2018 [facility] of Occupat ional Health - Occupational Stress [...] CDT Legal Sex Male 3:40 AM SYSTEMS SUPPORT SPECIALIST Gender Identity Male 03/03/2019 9:24 PM CDT Sexual Orientation Straight 03/03/2019 9: 24 PM CDT documented as of this encounter Plan of Treatment Upcoming Encounters Date Type Department Care Team (Late st Contact Info) Description 12/17/2024 9:30 AM CDT Lab [facility] Laboratory [address] [place] [phone] 12/23/2024 4:00 PM CDT Office Visit [address] [phone] Cyrus Aleman MD [address] [place] [address] 790165 01/27/2025 10:00 AM CDT Office Visit [facility] Neurology [address] [place] [phone] Anel Long, GRIEF COUNSELOR [address]268 [place], [place] [address] Coni Dhaliwal, COREY [address] [address] 04/14/2025 11:15 AM CDT Office Visit [facility] Heart [facility] [address] [facility] [address] [place] [phone] LeroyreesevannesaEliazarInessasergio FunesDO [address] [place] [address] 06/05/2025 12:30 PM CDT Office Visit [facility] Endocrinology [address] [place] [phone] Stephie Mahoney MD [address] [place] [address] 161605 11/13/2025 11:00 AM CDT Virtual Visit [facility] Endocrinology [address] [phone] Stephie Mahoney MD [address] [place] [address] 348055 documented as of this encounter Visit Diagnoses Not on filedocumented in this encounter Additional Health Concerns Infection Onset Date Last Indicated Resolved Time Rule Out COVID-19 03/10/2022 03/10/2022 03/10/2022 1:37 AM CDT COVID-19 03/10/2022 03/10/2022 03/31/2022 11:3 9 PM CDT Rule Out COVID-19 10/12/2024 10/12/2024 10/12/2024 11:31 AM SYSTEMS SUPPORT SPECIALIST documented as of this encounter Care Teams Account Manager Relationship Specialty [place] [address] [address] [place] [address] PCP - General Family Practice 11/21/16 [place] [address] [address] [address] Assigned PCP 10/31/20 01/29/21 Matt Baez MD [address] [facility] [address] [place] [address] Assigned Heart and Vascular Provider 06/11/20 06/23/22 [place] [address] [place] [address] Assigned PCP 11/02/16 10/30/20 [place] [address] [place] [address] Assigned PCP 01/30/21 07/11/24 Stephie Mahoney MD [address] [place] [address] Endocrinology, Diabetes, and Metabolism 04/22/21 Federica Foster RN [address] [place] [address] Space Systems Operations Superintendent Diabetes Education 04/22/[address] [place] [address] Space Systems Operations Superintendent Nutrition 04/22/21 Stephie Mahoney MD [address] [place] [address] Assigned Endocrinology Provider 05/08/21 Olga Garcia RN Specialty Finance Director INTERNAL MEDICINE - ENDOCRINOLOGY, DIABETES & METABOLISM 09/29/22 Matt Baez MD [address] [place] [address] Assigned Heart and Vascular Provider 12/23/22 05/04/23 Junior Chavira MD [address] [place] 6738[address] Cardiovascular Disease 05/29/24 [place] [address] [address] [address] Assigned PCP 07/12/24 Junior Chavira MD [address] [place] [address] Assigned Heart and Vascular Provider 08/11/24 Coni Dhaliwal CNP [address] [place] [address] Nurse Practitioner Psychiatry & Neurology Vascular Neurology 11/04/24 Anel Long NP [address] [place] [address] Nurse Practitioner Psychiatry & Neurology Vascular Neurology 11/04/24 Angel Balbuena MD [address] [facility] [place] [place] [address] Assigned Heart and Vascular Surgical Provider 12/10/24 documented as of this encounter
--- OUTSIDE RECORDS SUMMARY | 2024-12-12 00:30 | XMS_ITS | Encounter Summary ---
Author Organization [facility] Address [address] [place] [address]. [place] [address] Care Team Providers Care Manager Flight Name Role Phone Wilber Vidales MD Primary Care Provider [phone] Matt Baez MD Unavailable Wilber Vidales MD Unavailable Stephie Mahoney MD Unavailable Federica Foster RN Unavailable Tova Welch RD Unavailable [phone] Stephie Mahoney MD Unavailable Olga Garcia RN Unavailable [phone] Matt Baez MD Unavailable [phone] Junior Chavira MD Unavailable [phone] Shantel Walker MD Unavailable [phone] Junior Chavira MD Unavailable [phone] Coni Dhaliwal CNP Unavailable [phone] Anel Long NP Unavailable [phone] Angel Balbuena MD Unavailable [phone] Encounter Details Date Type Department Care Team (Late st Contact Info) Description 01/27/2022 MyC Medical Advice [facility] Diabetes Education [address] 3rd [place] [address] Federica Foster, RN 420 [place] [address] Social History Tobacco Use Types Packs/Day Years [...] How often do you attend [facility] or taoist services? More than 4 times per year 06/27/2021 Do you belong to any clubs o r organizations such as temple groups, unions, fraternal or athletic groups, or [...] Answer Date Recorded PHQ-2 Score 0 09/02/2021 [facility] [place] of Occupat ional Health - Occupational Stress [...] AM CDT Legal Sex Male 3:40 AM HOOF TRIMMER Gender Identity Male 03/03/2019 9:24 PM CDT Sexual Orientation Straight 03/03/2019 9: 24 PM CDT documented as of this encounter Plan of Treatment Upcoming Encounters Date Type Department Care Team (Late st Contact Info) Description 12/17/2024 9:30 AM CDT [facility] [address] [place] [address] 12/23/2024 4:00 PM CDT Office Visit [facility] 6545 [facility] 450 [place] [phone] Cyrus Aleman MD [address] [place] [address] 01/27/2025 10:00 AM CDT Office Visit [facility] Neurology [facility] [address] [place] [address] 200 [place] [phone] Anel Long, DIET TECH [address] [facility] [place] [place] [address] Coni Dhaliwal, GEOSPATIAL SPECIALIST 3045 [facility] 450 [place], [place] [address] 04/14/2025 11:15 AM CDT Office Visit [facility] Heart [facility] [address] [facility] [address] [place] [phone] Inessa Esteves DO [address]405 [facility] [address] [place], [place] [address] 06/05/2025 12:30 PM CDT Office Visit [facility] Endocrinology Clinic [address] [phone] Stephie Mahoney MD [address] [place] [address] 265935 11/13/2025 11:00 AM CDT Virtual Visit [facility] Endocrinology Clinic [address] [phone] Stephie Mahoney MD [address] 229825 documented as of this encounter Visit Diagnoses Not on filedocumented in this encounter Additional Health Concerns Infection Onset Date Last Indicated Resolved Time Rule Out COVID-19 03/10/2022 03/10/2022 03/10/2022 1:37 AM CDT COVID-19 03/10/2022 03/10/2022 03/31/2022 11:3 9 PM CDT Rule Out COVID-19 10/12/2024 10/12/2024 10/12/2024 11:31 AM HOOF TRIMMER documented as of this encounter Care Teams Manager Flight Relationship Specialty [place] [address] [address] [address] PCP - General Family Practice 11/21/16 Matt Baez MD [address] [facility] [address] [place] [address] Assigned Heart and Vascular Provider 06/11/20 06/23/22 [place] [address] [address] [address] Assigned PCP 01/30/21 07/11/24 Stephie Mahoney MD [address] [address] Endocrinology, Diabetes, and Metabolism 04/22/21 Federica Foster, RN 420 [place], [place] [address] Supervisor Speech Diabetes Education 04/22/21 Tova Welch, OSCAR [address] [place] [address] Supervisor Speech Nutrition 04/22/21 Stpehie Mahoney MD [address] [place] [address] [facility] 101 [place], [place] 300485 Assigned Endocrinology Provider 05/08/21 Olga Garcia, RN Specialty Organizational Psychologist INTERNAL MEDICINE - ENDOCRINOLOGY, DIABETES & METABOLISM 09/29/22 Matt Baez MD [address] [place], [place] [address] Assigned Heart and Vascular Provider 12/23/22 05/04/23 Junior Chavira MD [address] [place], [place] [address] Cardiovascular Disease 05/29/24 [place] [address] [place] [address] Assigned PCP 07/12/24 Junior Chavira MD [address] [place], [place] 3023[address] Assigned Heart and Vascular Provider 08/11/24 Coni Dhaliwal CNP [address] [place], [place] [address] Nurse Practitioner Psychiatry & Neurology Vascular Neurology 11/04/24 Anel Long NP [address] [place] 186[address] Nurse Practitioner Psychiatry & Neurology Vascular Neurology 11/04/24 Angle Balbuena MD [address] [place] [address] Assigned Heart and Vascular Surgical Provider 12/10/24 documented as of this encounter
--- OUTSIDE RECORDS SUMMARY | 2024-12-12 00:31 | XMS_ITS | Encounter Summary ---
Author Organization [facility] Address [address] [place] [address]. [place] [address] Care Team Providers Care Slater Apprentice Name Role Phone Wilber Vidales MD Primary Care Provider [phone] Matt Baez MD Unavailable [phone] Wilber Vidales MD Unavailable Stephie Mahoney MD Unavailable Federica Foster RN Unavailable Tova Welch RD Unavailable [phone] Stephie Mahoney MD Unavailable Olga Garcia RN Unavailable [phone] Matt Baez MD Unavailable [phone] Junior Chavira MD Unavailable [phone] Shantel Walker MD Unavailable [phone] Junior Chavira MD Unavailable [phone] Coni Dhaliwal CNP Unavailable [phone] Anel Long NP Unavailable [phone] Angel Balbuena MD Unavailable [phone] Reason for Visit * Reason Onset Date Comments Refill Request 06/23/2021 Encounter Details Date Type Department Care Team (Late st Contact Info) Description 06/23/2021 Refill [facility] [address] [place] [address] [place] [address] [place] [address] Refill Request Social History Tobacco [...] 06/27/2021 How often do you attend [facility] or orthodox services? More than 4 times per year 06/27/2021 Do you belong to any clubs o r organizations such as zoroastrian groups, unions, fraternal or athletic groups, or [...] Score 0 06/27/2021 [facility] [place] of Occupat ional Health - Occupational Stress [...] AM CDT Legal Sex Male 3:40 AM BUSINESS RISK CONSULTANT Gender Identity Male 03/03/2019 9:24 PM CDT Sexual Orientation Straight 03/03/2019 9: 24 PM CDT documented as of this encounter Plan of Treatment Upcoming Encounters Date Type Department Care Team (Late st Contact Info) Description 12/17/2024 9:30 AM CDT Lab [facility] Laboratory [address] [place] [address] 12/23/2024 4:00 PM CDT Office Visit [facility] [address] [facility] [address] [place] [phone] Cyrus Aleman MD [address] [place] [address] 338535 01/27/2025 10:00 AM CDT Office Visit [facility] Neurology [facility] [address] [place] [address] 200 [place] [phone] Anel Long, ELECTRICAL AND RADIO MECHANIC [address] [facility] [address] [place], [place] [address] Coni Dhaliwal CNP 9343 [facility] 450 [place], [place] [address] 04/14/2025 11:15 AM CDT Office Visit [facility] Heart [facility] [address] [facility] [address] [place] [phone] Inessa Esteves DO [address] [place], [place] [address] 06/05/2025 12:30 PM CDT Office Visit [facility] Endocrinology Clinic [address] [phone] Stephie Mahoney MD [address] [place] [address] 949985 11/13/2025 11:00 AM CDT Virtual Visit [facility] Endocrinology [address] [phone] Stephie Mahoney MD [address] [place] [address] documented as of this encounter Visit Diagnoses Not on filedocumented in this encounter Additional Health Concerns Infection Onset Date Last Indicated Resolved Time Rule Out COVID-19 03/10/2022 03/10/2022 03/10/2022 1:37 AM CDT COVID-19 03/10/2022 03/10/2022 03/31/2022 11:3 9 PM CDT Rule Out COVID-19 10/12/2024 10/12/2024 10/12/2024 11:31 AM BUSINESS RISK CONSULTANT documented as of this encounter Care Teams Slater Apprentice Relationship Specialty [place] [address] [place] [address] PCP - General Family Practice 11/21/16 Matt Baez MD [address] [facility] [address] [place] [address] Assigned Heart and Vascular Provider 06/11/20 06/23/22 [place] [address] [place] [address] Assigned PCP 01/30/21 07/11/24 Stephie Mahoney MD [address] [place] [address] Endocrinology, Diabetes, and Metabolism 04/22/21 Federica Foster, RN [address] [place] [address] 056265 Veterinary Surgeon Diabetes Education 04/22/[address] [place] [address] Veterinary Surgeon Nutrition 04/22/21 Stephie Mahoney MD [address] [place] [address] [facility] [address] [place], [place] [address] Assigned Endocrinology Provider 05/08/21 Olga Garcia RN Specialty Pull Out Operator INTERNAL MEDICINE - ENDOCRINOLOGY, DIABETES & METABOLISM 09/29/22 Matt Baez MD [address] [place], [place] [address] Assigned Heart and Vascular Provider 12/23/22 05/04/23 Junior Chavira MD [address] [place] 263[address] Cardiovascular Disease 05/29/24 [place] [address] [place] [address] Assigned PCP 07/12/24 Junior Chavira MD [address] [place], [place] 4947[address] Assigned Heart and Vascular Provider 08/11/24 Coni Dhaliwal, COREY [address] [place], [place] [address] Nurse Practitioner Psychiatry & Neurology Vascular Neurology 11/04/24 Anel Long NP [address] [place], [place] [address] Nurse Practitioner Psychiatry & Neurology Vascular Neurology 11/04/24 Angel Balbuena MD [address] [place] [address] Assigned Heart and Vascular Surgical Provider 12/10/24 documented as of this encounter
--- OUTSIDE RECORDS SUMMARY | 2024-12-12 00:31 | XMS_ITS | Encounter Summary ---
Author Organization [facility] Address [address] [place] [address]. [place] [address] Care Team Providers Care Product Management Analyst Name Role Phone Wilber Vidales MD Primary Care Provider [phone] Matt Baez MD Unavailable [phone] Wilber Vidales MD Unavailable Stephie Mahoney MD Unavailable Federica Foster RN Unavailable [phone] Unavailable [phone] Stephie Mahoney MD Unavailable [phone] Olga Garcia RN Unavailable +[phone] Matt Baez MD Unavailable [phone] Junior Chavira MD Unavailable [phone] Shantel Walker MD Unavailable [phone] Junior Chavira MD Unavailable [phone] Coni Dhaliwal CNP Unavailable [phone] Anel Long NP Unavailable [phone] Reason for Visit * Reason Onset Date Comments Appointment 07/08/[address] Mahoney Encounter Details Date Type Department Care Team (Late st Contact Info) Description 07/08/2021 Telephone [facility] Endocrinology Clinic [place] [address] [facility] [address] 3rd [place] [address] Stephie Mahoney MD 420 [facility] 101 [place] [address] Appointment (Labs per Dr Mahoney) Social History [...] week 07/12/2023 How often do you attend [facility] or [facility] services? 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 TING PLANT SUPERVISOR * Telephone Encounter - Caitlin Malik - 07/08/2021 1:13 PM CST ----- Message from Stephie Mahoney MD sent at 06/30/2021 2:49 PM TREATING PLANT SUPERVISOR ----- Please have pt do labs before return visit at [facility] - please let pt know about details - I have ordered TING PLANT SUPERVISOR documented in this encounter Plan of Treatment Upcoming Encounters Date Type Department Care Team (Late st Contact Info) Description 12/17/2024 9:30 AM CDT Lab [facility] Laboratory [address] [place] [address] 12/23/2024 4:00 PM CDT Office Visit [address] [phone] Cyrus Aleman MD [address] [place] [address] 01/27/2025 10:00 AM CDT Office Visit [facility] Neurology Clinic [address] [place] [phone] Anel Long CONSULTING PROJECT DIRECTOR [address] [place] [address] Coni Dhaliwal, CONVENTIONS RESERVATIONIST [address] [place] [address]35 04/14/2025 11:15 AM CDT Office Visit [facility] Heart [facility] [address] [facility] [address] [place] [phone] Inessa Esteves DO [address] [place] [address] 06/05/2025 12:30 PM CDT Office Visit [facility] Endocrinology Clinic [address] [phone] Stephie Mahoney MD [address] [place] [address] 079845 11/13/2025 11:00 AM CDT Virtual Visit [facility] Endocrinology [address] [phone] Stephie Mahoney MD [address] [place] [address] 322915 documented as of this encounter Visit Diagnoses Not on filedocumented in this encounter Additional Health Concerns Infection Onset Date Last Indicated Resolved Time Rule Out COVID-19 03/10/2022 03/10/2022 03/10/2022 1:37 AM CDT COVID-19 03/10/2022 03/10/2022 03/31/2022 11:3 9 PM CDT Rule Out COVID-19 10/12/2024 10/12/2024 10/12/2024 11:31 AM TREATING PLANT SUPERVISOR documented as of this encounter Care Teams Product Management Analyst Relationship Specialty [place] [address] [place] [address] PCP - General Family Practice 11/21/16 Matt Baez MD [address] [facility] [address] [place] [address] Assigned Heart and Vascular Provider 06/11/20 06/23/22 [place] [address] [place] [address] Assigned PCP 01/30/21 07/11/24 Stephie Mahoney MD [address] [place] [address] Endocrinology, Diabetes, and Metabolism 04/22/21 Federica Foster, RN [address] [place] [address] 250575 Wastewater Treatment Plant Operator Diabetes Education 04/22/[address] [place] [address] Wastewater Treatment Plant Operator Nutrition 04/22/21 Stephie Mahoney MD [address] [place] [address] Assigned Endocrinology Provider 05/08/21 Olga Garcia, RN Specialty Floor Worker INTERNAL MEDICINE - ENDOCRINOLOGY, DIABETES & METABOLISM 09/29/22 Matt Baez MD [address] [place] [address] Assigned Heart and Vascular Provider 12/23/22 05/04/23 Junior Chavira MD [address] [place] [address] Cardiovascular Disease 05/29/24 [place] [address] [place] [address] Assigned PCP 07/12/24 Junior Chavira MD [address] [place] [address] Assigned Heart and Vascular Provider 08/11/24 Coni Dhaliwal CNP [address] [place], [place] 345265 Nurse Practitioner Psychiatry & Neurology Vascular Neurology 11/04/24 Anel Long NP [address] [place] [address] Nurse Practitioner Psychiatry & Neurology Vascular Neurology 11/04/24 documented as of this encounter
--- OUTSIDE RECORDS SUMMARY | 2024-12-12 00:31 | XMS_ITS | Encounter Summary ---
Author Organization [facility] Address [address] [place] [address]. [place] [address] Care Team Providers Care Inlayer Name Role Phone Wilber Vidales MD Primary Care Provider [phone] Wilber Vidales MD Unavailable Matt Baez MD Unavailable [phone] Wilber Vidales MD Unavailable Wilber Vidales MD Unavailable Stephie Mahoney MD Unavailable [phone] Federica Foster RN Unavailable [phone] Unavailable [phone] Stephie Mahoney MD Unavailable [phone] Olga Garcia RN Unavailable [phone] Matt Baez MD Unavailable Junior Chavira MD Unavailable [phone] Shantel Walker MD Unavailable [phone] Junior Chavira MD Unavailable [phone] Coni Dhaliwal CNP Unavailable [phone] Anel Long NP Unavailable [phone] Angel Balbuena MD Unavailable [phone] Encounter Details Date Type Department Care Team (Late st Contact Info) Description 10/01/2019 MyC Medical Advice [facility] Heart [facility] [address] [facility] [address] [place] [address] Matt Baez MD [address] [facility] [address] [place] [address] Social History Tobacco Use Types Packs/Day Years [...] Answer Date Recorded PHQ-2 Score 0 08/27/2018 [facility] [place] of Occupat ional Health - Occupational Stress [...] AM CDT 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 Gender Identity Male 03/03/2019 9:24 PM CDT Sexual Orientation Straight 03/03/2019 9: 24 PM CDT documented as of this encounter Plan of Treatment Upcoming Encounters Date Type Department Care Team (Late st Contact Info) Description 12/17/2024 9:30 AM CDT Lab [facility] Laboratory [address] [place] [phone] 12/23/2024 4:00 PM CDT Office Visit [address] [phone] Cyrus Aleman MD [address] [place] [address] 793825 01/27/2025 10:00 AM CDT Office Visit [facility] Neurology [facility] [address] [place] [address] 200 [place] [address] Anel Long, PARKING LOT SUPERVISOR 1350 [place], [place] [address] Coni Dhaliwal, PLANT PATHOLOGY TEACHER [address] [address] 04/14/2025 11:15 AM CDT Office Visit [facility] Heart [facility] [address] [facility] [address] [place] [address] Inessa Esteves [address] [place] [address] 06/05/2025 12:30 PM CDT Office Visit [facility] Endocrinology [address] [phone] Stephie Mahoney MD [address] [place] [address] 11/13/2025 11:00 AM CDT Virtual Visit [facility] Endocrinology [address] [phone] Stephie Mahoney MD [address] [place] [address] documented as of this encounter Visit Diagnoses Not on filedocumented in this encounter Additional Health Concerns Infection Onset Date Last Indicated Resolved Time Rule Out COVID-19 03/10/2022 03/10/2022 03/10/2022 1:37 AM CDT COVID-19 03/10/2022 03/10/2022 03/31/2022 11:3 9 PM CDT Rule Out COVID-19 10/12/2024 10/12/2024 10/12/2024 11:31 AM ENDLESS BELT FINISHER documented as of this encounter Care Teams Inlayer Relationship Specialty [place] [address] [place] [address] [address] PCP - General Family Practice 11/21/16 [place] [address] [place] [address] [address] Assigned PCP 10/31/20 01/29/21 Matt Baez MD [address] [facility] [address] [place] [address] Assigned Heart and Vascular Provider 06/11/20 06/23/22 [place] [address] [place] [address] Assigned PCP 11/02/16 10/30/20 [place] [address] [place] [address] Assigned PCP 01/30/21 07/11/24 Stephie Mahoney MD [address] [place] [address] Endocrinology, Diabetes, and Metabolism 04/22/21 Federica Foster RN [address] [place] [address] Vocal Performer Diabetes Education 04/22/[address] [place] [address] Vocal Performer Nutrition 04/22/21 Stephie Mahoney MD [address] [place] [address] 366145 Assigned Endocrinology Provider 05/08/21 Olga Garcia RN Specialty Mica Plate Layer INTERNAL MEDICINE - ENDOCRINOLOGY, DIABETES & METABOLISM 09/29/22 Matt Baez MD [address] [place] [address] Assigned Heart and Vascular Provider 12/23/22 05/04/23 Junior Chavira MD [address] [place] [address]665 Cardiovascular Disease 05/29/24 [place] [address] [address] [place], [place] 4006244 Assigned PCP 07/12/24 Junior Chavira MD [address] [place] 108665 Assigned Heart and Vascular Provider 08/11/24 Coni Dhaliwal CNP [address] [place] 59[address]15 Nurse Practitioner Psychiatry & Neurology Vascular Neurology 11/04/24 Anel Long PARKING LOT SUPERVISOR [address] [place], [place] [address] Nurse Practitioner Psychiatry & Neurology Vascular Neurology 11/04/24 Angel Balbuena MD [address] [place], [place] [address], [place] [address] Assigned Heart and Vascular Surgical Provider 12/10/24 documented as of this encounter
--- OUTSIDE RECORDS SUMMARY | 2024-12-12 00:31 | XMS_ITS | Encounter Summary ---
Author Organization [facility] Address [address] [place] [address]. [place] [address] Care Team Providers Care Shoe Folder Name Role Phone Wilber Vidales MD Primary Care Provider [phone] Wilber Vidales MD Unavailable Stephie Mahoney MD Unavailable [phone] Federica Foster RN Unavailable [phone] Unavailable [phone] Stephie Mahoney MD Unavailable [phone] Olga Garcia RN Unavailable [phone] Junior Chavira MD Unavailable [phone] Shantel Walker MD Unavailable [phone] Junior Chavira MD Unavailable [phone] Coni Dhaliwal FINANCIAL ASSISTANCE ADVISOR Unavailable [phone] Anel Long NP Unavailable [phone] Angel Balbuena MD Unavailable [phone] Encounter Details Date Type Department Care Team (Late st Contact Info) Description 04/25/[address] [facility] Endocrinology Clinic [place] [address] [facility] 3rd [place] [address] Dinah Velazquez Social History Tobacco [...] often do you attend chur ch or pentecostal services? 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 Neurology [facility] 1650 [facility] 200 [place] [phone] Anel Long, CELLOPHANER [address] [facility] [address] [place], [place] [address] Coni Dhaliwal CNP 1426 [facility] 450 [place], [place] 854585 04/14/2025 11:15 AM CDT Office [facility] Heart [facility] [address] [facility] [address] [place] [phone] Inessa Esteves DO [address] [place], [place] [address] 06/05/2025 12:30 PM CDT Office [facility] Endocrinology Clinic [address] [phone] Stephie Mahoney MD [address] 403375 11/13/2025 11:00 AM CDT Virtual Visit [facility] Endocrinology [address] [phone] Stephie Mahoney MD [address] 619645 documented as of this encounter Visit Diagnoses Not on filedocumented in this encounter Additional Health Concerns Infection Onset Date Last Indicated Resolved Time Rule Out COVID-19 10/12/2024 10/12/2024 10/12/2024 11:31 AM STABLE ATTENDANT documented as of this encounter Care Teams Shoe Folder Relationship Specialty [place] [address] [address] [address] PCP - General Family Practice 11/21/16 [place] [address] [place] [address] [address] Assigned PCP 01/30/21 07/11/24 Stephie Mahoney MD [address] [place] [address] 764985 Endocrinology, Diabetes, and Metabolism 04/22/21 Federica Foster RN [address] [place] [address] 234355 Media Assistant Diabetes Education 04/22/[address] [place] [address] [phone] Media Assistant Nutrition 04/22/21 Stephie Mahoney MD [address] 523845 Assigned Endocrinology Provider 05/08/21 Olga Garcia, RN Specialty Primer Inspector INTERNAL MEDICINE - ENDOCRINOLOGY, DIABETES & METABOLISM 09/29/22 Junior Chavira MD [address] [place] [address] Cardiovascular Disease 05/29/24 [place] [address] [place] [address] Assigned PCP 07/12/24 Junior Chavira MD [address] [place] [address] Assigned Heart and Vascular Provider 08/11/24 Coni Dhaliwal CNP [address] [place] [address] Nurse Practitioner Psychiatry & Neurology Vascular Neurology 11/04/24 Anel Long NP [address] [place] [address] Nurse Practitioner Psychiatry & Neurology Vascular Neurology 11/04/24 Angel Balbuena MD [address] [place] [address] Assigned Heart and Vascular Surgical Provider 12/10/24 documented as of this encounter
--- OUTSIDE RECORDS SUMMARY | 2024-12-12 00:31 | XMS_ITS | Encounter Summary ---
Author Organization [facility] Address [address] [place] [address]. [place] [address] Care Team Providers Care Towel Stretcher Name Role Phone Wilber Vidales MD Primary Care Provider [phone] Wilber Vidales MD Unavailable Stephie Mahoney MD Unavailable [phone] Federica Foster RN Unavailable [phone] Unavailable [phone] Stephie Mahoney MD Unavailable [phone] Olga Garcia RN Unavailable [phone] Junior Chavira MD Unavailable +[phone] Shantel Walker MD Unavailable +[phone] Junior Chavira MD Unavailable [phone] Coni Dhaliwal LIVESTOCK FARMWORKER Unavailable +[phone] Anel Long NP Unavailable [phone] Angel Balbuena MD Unavailable [phone] Encounter Details Date Type Department Care Team (Late st Contact Info) Description 05/23/2024 [facility] Endocrinology Clinic [place] 786129 [facility] 3rd [place] [address] Rebecca Harvey RN Social History [...] Answer Date Recorded PHQ-2 Score 0 11/23/2023 [facility] - Occupational Stress Questionnaire [...] in an overnight jail, or couch-surfing.) Yes 07/12/2023 Are you worried [...] AM CDT 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 Gender Identity Male 03/03/2019 9:24 PM CDT Sexual Orientation Straight 03/03/2019 9: 24 PM CDT documented as of this encounter Plan of Treatment Upcoming Encounters Date Type Department Care Team (Late st Contact Info) Description 12/17/2024 9:30 AM CDT Lab [facility] Laboratory [address] [place] [address] 12/23/2024 4:00 PM CDT Office Visit [facility] 6545 [facility] 450 [place] [phone] Cyrus Aleman MD [address] [place] [address] 448325 01/27/2025 10:00 AM CDT Office Visit [facility] Neurology [facility] [address] [place] [address] 200 [place] [phone] Anel Long, TARIK [address] [facility] [place], [place] 90[address] Coni Dhaliwal CNP 8645 [facility] 450 [place], [place] 3[address]25 04/14/2025 11:15 AM CDT Office Visit [facility] Heart [facility] [address] [facility] [address] [place] [phone] Inessa Esteves DO 6405 [facility] [address] [place], [place] [address] 06/05/2025 12:30 PM CDT Office Visit [facility] Endocrinology Clinic [address] [phone] Stephie Mahoney MD [address] [place] [address] 866925 11/13/2025 11:00 AM CDT Virtual Visit [facility] Endocrinology [address] [phone] Stephie Mahoney MD [address] [place] [address] documented as of this encounter Visit Diagnoses Not on filedocumented in this encounter Additional Health Concerns Infection Onset Date Last Indicated Resolved Time Rule Out COVID-19 10/12/2024 10/12/2024 10/12/2024 11:31 AM YEAST WASHER documented as of this encounter Care Teams Towel Stretcher Relationship Specialty [place] [address] [place] [address] PCP - General Family Practice 11/21/16 [place] [address] [address] [address] Assigned PCP 01/30/21 07/11/24 Stephie Mahoney MD [address] [place] [address] Endocrinology, Diabetes, and Metabolism 04/22/21 Federica Foster RN [address] [place] [address] Legal Director Diabetes Education 04/22/[address] [place] [address] Legal Director Nutrition 04/22/21 Stephie Mahoney MD [address] [place] [address] Assigned Endocrinology Provider 05/08/21 Olga Garcia RN Specialty Upper Leather Cutter INTERNAL MEDICINE - ENDOCRINOLOGY, DIABETES & METABOLISM 09/29/22 Junior Chavira MD [address] [place] 444795 Cardiovascular Disease 05/29/24 [place] [address] [place] [address] Assigned PCP 07/12/24 Junior Chavira MD [address] [place] 661805 Assigned Heart and Vascular Provider 08/11/24 Coni Dhaliwal, COREY [address] [place] 248365 Nurse Practitioner Psychiatry & Neurology Vascular Neurology 11/04/24 Anel Long NP [address] [place], [place] 417625 Nurse Practitioner Psychiatry & Neurology Vascular Neurology 11/04/24 Angel Balbuena MD 909 [place], [place] 386525 Assigned Heart and Vascular Surgical Provider 12/10/24 documented as of this encounter
--- OUTSIDE RECORDS SUMMARY | 2024-12-12 00:31 | XMS_ITS | Encounter Summary ---
Author Organization [facility] Address [address] [place] [address]. [place] [address] Care Team Providers Care Patient Safety Sitter Name Role Phone Wilber Vidales MD Primary Care Provider [phone] Wilber Vidales MD Unavailable Stephie Mahoney MD Unavailable [phone] Federica Foster RN Unavailable [phone] Unavailable [phone] Stephie Mahoney MD Unavailable +[phone] Olga Garcia RN Unavailable +[phone] Junior Chavira MD Unavailable +[phone] Shantel Walker MD Unavailable +[phone] Junior Chavira MD Unavailable [phone] Coni Dhaliwal LINING CEMENTER Unavailable +[phone] Anel Long NP Unavailable [phone] Angel Balbuena MD Unavailable [phone] Encounter Details Date Type Department Care Team (Late st Contact Info) Description 01/28/2024 [facility] Diabetes Education [address]rd [place] [address] Jana Pineda, RD, LD 909 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 Laboratory [address] [place] [phone] 12/23/2024 4:00 PM CDT Office Visit [facility] 6545 [facility] 450 [place] [phone] Cyrus Aleman MD [address] [place] [address] 049145 01/27/2025 10:00 AM CDT Office Visit [facility] Neurology [facility] [address] [place] [address] 200 [place] [phone] Anel Long, PLATING FOREMAN [address] [place], [place] [address] Coni Dhaliwal, LINING CEMENTER [address] [facility] 450 [place], [place] 5[address] 04/14/2025 11:15 AM CDT Office Visit [facility] Heart [facility] [address] [facility] [address] [place] [phone] Inessa Esteves DO [address] [place], [place] [address] 06/05/2025 12:30 PM CDT Office Visit [facility] Endocrinology [address] [address] Stephie Mahoney MD [address] [place] [address] 101 [place], [place] 184705 11/13/2025 11:00 AM CDT Virtual Visit [facility] Endocrinology [address] [phone] Stephie Mahoney MD [address] 654475 documented as of this encounter Visit Diagnoses Not on filedocumented in this encounter Additional Health Concerns Infection Onset Date Last Indicated Resolved Time Rule Out COVID-19 10/12/2024 10/12/2024 10/12/2024 11:31 AM OPHTHALMIC TECHNOLOGIST documented as of this encounter Care Teams Patient Safety Sitter Relationship Specialty [place] [address] [address] [place] [address] PCP - General Family Practice 11/21/16 [place] [address] [place] [address] Assigned PCP 01/30/21 07/11/24 Stephie Mahoney MD [address] [place] [address] Endocrinology, Diabetes, and Metabolism 04/22/21 Federica Foster, RN [address] [place] [address] Tube Room Cashier Diabetes Education 04/22/[address] [place] [address] Tube Room Cashier Nutrition 04/22/21 Stephie Mahoney MD [address] [place] [address] Assigned Endocrinology Provider 05/08/21 Olga Garcia RN Specialty Business Development Associate INTERNAL MEDICINE - ENDOCRINOLOGY, DIABETES & METABOLISM 09/29/22 Junior Chavira MD [address] [place], [place] 297085 Cardiovascular Disease 05/29/24 [place] [address] [place] [address] Assigned PCP 07/12/24 Junior Chavira MD [address] [place] 796755 Assigned Heart and Vascular Provider 08/11/24 Coni Dhaliwal CNP [address] [place] 338385 Nurse Practitioner Psychiatry & Neurology Vascular Neurology 11/04/24 Anel Long NP [address] [place] 885025 Nurse Practitioner Psychiatry & Neurology Vascular Neurology 11/04/24 Angel Balbuena MD [address] [place] [address] 835435 Assigned Heart and Vascular Surgical Provider 12/10/24 documented as of this encounter
--- OUTSIDE RECORDS SUMMARY | 2024-12-12 00:31 | XMS_ITS | Encounter Summary ---
Author Organization [facility] Address [address] [place] [address]. [place] [address] Care Team Providers Care Office Spec Name Role Phone Wilber Vidales MD Primary Care Provider [phone] Matt Baez MD Unavailable Wilber Vidales MD Unavailable Stephie Mahoney MD Unavailable Federica Foster RN Unavailable Tova Welch RD Unavailable [phone] Stephie Mahoney MD Unavailable Olga Garcia RN Unavailable [phone] Matt Baez MD Unavailable [phone] Junior Chavira MD Unavailable [phone] Shantel Walker MD Unavailable [phone] Junior Chavira MD Unavailable [phone] Coni Dhaliwal CNP Unavailable [phone] Anel Long NP Unavailable [phone] Angel Balbuena MD Unavailable [phone] Encounter Details Date Type Department Care Team (Late st Contact Info) Description 12/14/2021 MyC Medical Advice M [facility] Diabetes Education [address] 3rd [place] [address] Federica Foster, RN 420 [place] [address] Social History Tobacco Use Types Packs/Day Years [...] do you attend [facility] or denominational services? More than 4 times [...] Answer Date Recorded PHQ-2 Score 0 09/02/2021 [facility] of Occupat ional Health - Occupational Stress [...] AM CDT Legal Sex Male 3:40 AM POLICE JUSTICE Gender Identity Male 03/03/2019 9:24 PM CDT Sexual Orientation Straight 03/03/2019 9: 24 PM CDT documented as of this encounter Miscellaneous Notes * Telephone Encounter - Federica Foster RN - 12/15/2021 12:00 PM CDT documented in this encounter Plan of Treatment Upcoming Encounters Date Type Department Care Team (Late st Contact Info) Description 12/17/2024 9:30 AM CDT Lab [facility] [address] [place] [address] 12/23/2024 4:00 PM CDT Office Visit [facility] 6545 [facility] 450 [place] [phone] Cyrus Aleman MD [address] [place] [address] 159815 01/27/2025 10:00 AM CDT Office Visit [facility] Neurology [address] [place] [phone] Anel Long, CONTROL MANAGER [address] [place] [address] Coni Dhaliwal, COREY [address] [facility] [address] [place], [place] [address] 04/14/2025 11:15 AM CDT Office Visit [facility] Heart [facility] [address] [facility] [address] [place] [phone] Inessa Esteves DO [address] [place], [place] [address] 06/05/2025 12:30 PM CDT Office Visit [facility] [place] 909 [facility] 3rd [place] [phone] Stephie Mahoney MD 420 [facility] [address] [place] [address] 11/13/2025 11:00 AM CDT Virtual Visit [facility] [place] [address] [facility] SE 3rd [place] [phone] Stephie Mahoney MD [address] [address] documented as of this encounter Visit Diagnoses Not on filedocumented in this encounter Additional Health Concerns Infection Onset Date Last Indicated Resolved Time Rule Out COVID-19 03/10/2022 03/10/2022 03/10/2022 1:37 AM CDT COVID-19 03/10/2022 03/10/2022 03/31/2022 11:3 9 PM CDT Rule Out COVID-19 10/12/2024 10/12/2024 10/12/2024 11:31 AM POLICE JUSTICE documented as of this encounter Care Teams Office Spec Relationship Specialty [place] [address] [place] [address] PCP - General Family Practice 11/21/16 Matt Baez MD [address] [facility] [address] [place], [place] [address] Assigned Heart and Vascular Provider 06/11/20 06/23/22 [place] [address] [place] [address] Assigned PCP 01/30/21 07/11/24 Stephie Mahoney MD [address] [address] Endocrinology, Diabetes, and Metabolism 04/22/21 Federica Foster, RN 420 [place], [place] [address] Compliance Representative Diabetes Education 04/22/[address] [place] [address] Compliance Representative Nutrition 04/22/21 Stephie Mahoney MD [address] [place] [address] [address] [place], [place] 97[address] Assigned Endocrinology Provider 05/08/21 Olga Garcia, RN Specialty Statistical Reporting Analyst INTERNAL MEDICINE - ENDOCRINOLOGY, DIABETES & METABOLISM 09/29/22 Matt Baez MD [address] [place] [address] Assigned Heart and Vascular Provider 12/23/22 05/04/23 Junior Chavira MD [address] [place] [address] Cardiovascular Disease 05/29/24 [place] [address] [place] [address] Assigned PCP 07/12/24 Junior Chavira MD [address] [place], [place] 9[address] Assigned Heart and Vascular Provider 08/11/24 Coni Dhaliwal, RECORDS MANAGEMENT DIRECTOR [address] [place] 40[address] Nurse Practitioner Psychiatry & Neurology Vascular Neurology 11/04/24 Anel Long CONTROL MANAGER [address] [place] [address] Nurse Practitioner Psychiatry & Neurology Vascular Neurology 11/04/24 Angel Balbuena MD [address] [place] [address] Assigned Heart and Vascular Surgical Provider 12/10/24 documented as of this encounter
--- OUTSIDE RECORDS SUMMARY | 2024-12-12 00:32 | XMS_ITS | Encounter Summary ---
Author Organization [facility] Address [address] [place] [address]. [place] [address] Care Team Providers Care American Studies Professor Name Role Phone Wilber Vidales MD Primary Care Provider [phone] Wilber Vidales MD Unavailable Matt Baez MD Unavailable [phone] Wilber Vidales MD Unavailable Wilber Vidales MD Unavailable Stephie Mahoney MD Unavailable [phone] Federica Foster RN Unavailable [phone] Unavailable [phone] Stephie Mahoney MD Unavailable [phone] Olga Garcia RN Unavailable [phone] Matt Baez MD Unavailable Junior Chavira MD Unavailable [phone] Shantel Walker MD Unavailable [phone] Junior Chavira MD Unavailable [phone] Coni Dhaliwal CNP Unavailable [phone] Anel Long NP Unavailable [phone] Angel Balbuena MD Unavailable [phone] Encounter Details Date Type Department Care Team (Late st Contact Info) Description 06/23/2019 MyC Medical Advice [facility] [address] [place] [address] Tiarra Poole, RN Social History Tobacco Use [...] PHQ-2 Score 0 08/27/2018 [facility] [place] of Occupat ional Health - Occupational Stress [...] CDT 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 Gender Identity Male 03/03/2019 9:24 PM CDT Sexual Orientation Straight 03/03/2019 9: 24 PM CDT documented as of this encounter Plan of Treatment Upcoming Encounters Date Type Department Care Team (Late st Contact Info) Description 12/17/2024 9:30 AM CDT Lab [facility] Laboratory [address] [place] [address] 12/23/2024 4:00 PM CDT Office Visit [facility] [address] [place] [phone] Cyrus Aleman MD [address] [place] [address] 161665 01/27/2025 10:00 AM CDT Office Visit [facility] Neurology [facility] [address] [place] [address] 200 [place] [phone] Anel Long NP 8307 [place], [place] [address] Coni Dhaliwal CNP [address] [address] 04/14/2025 11:15 AM CDT Office Visit [facility] Heart [facility] 149[address] [facility] [address] [place] [address] Inessa Esteves DO [address] [place] [address] 06/05/2025 12:30 PM CDT Office Visit [facility] Endocrinology [facility] [address] [place] [phone] Stephie Maohney MD [address] [place] [address] 11/13/2025 11:00 AM CDT Virtual Visit [facility] Endocrinology [address] [phone] Stephie Mahoney MD [address] [place] [address] 625365 documented as of this encounter Visit Diagnoses Not on filedocumented in this encounter Additional Health Concerns Infection Onset Date Last Indicated Resolved Time Rule Out COVID-19 03/10/2022 03/10/2022 03/10/2022 1:37 AM CDT COVID-19 03/10/2022 03/10/2022 03/31/2022 11:3 9 PM CDT Rule Out COVID-19 10/12/2024 10/12/2024 10/12/2024 11:31 AM COMMERCIAL CREDIT ANALYST documented as of this encounter Care Teams American Studies Professor Relationship Specialty [place] [address] [place] [address] PCP - General Family Practice 11/21/16 [place] [address] [place] [address] Assigned PCP 10/31/20 01/29/21 Matt Baez MD [address] [place] [address] Assigned Heart and Vascular Provider 06/11/20 06/23/22 [place] [address] [place] [address] Assigned PCP 11/02/16 10/30/20 [place] [address] [place] [address] Assigned PCP 01/30/21 07/11/24 Stephie Mahoney MD [address] [place] [address] 758655 Endocrinology, Diabetes, and Metabolism 04/22/21 Federica Foster RN [address] [place] [address] [phone] Jammer Operator Diabetes Education 04/22/[address] [place] [address] Jammer Operator Nutrition 04/22/21 Stephie Mahoney MD [address] [place] [address] Assigned Endocrinology Provider 05/08/21 Olga Garcia, RN Specialty Road Patcher INTERNAL MEDICINE - ENDOCRINOLOGY, DIABETES & METABOLISM 09/29/22 Matt Baez MD [address] [place] [address] Assigned Heart and Vascular Provider 12/23/22 05/04/23 Junior Chavira MD [address] [place], [place] [address] Cardiovascular Disease 05/29/24 [place] [address] [place], [place] [address] Assigned PCP 07/12/24 Junior Chavira MD [address] [place], [place] [address] Assigned Heart and Vascular Provider 08/11/24 Coni Dhaliwal CNP [address] [place] [address]65[address] Nurse Practitioner Psychiatry & Neurology Vascular Neurology 11/04/24 Anel Long NP [address] [place] [place] [address] Nurse Practitioner Psychiatry & Neurology Vascular Neurology 11/04/24 Angel Balbuena MD [address] [place] [address] 483355 Assigned Heart and Vascular Surgical Provider 12/10/24 documented as of this encounter
--- OUTSIDE RECORDS SUMMARY | 2024-12-12 00:32 | XMS_ITS | Encounter Summary ---
Author Organization [facility] Address [address] [place], [place] [address]jer[place]. [place] [address] Care Team Providers Care Drywall Application Supervisor Name Role Phone Wilber Vidales MD Primary Care Provider [phone] Wilber Vidales MD Unavailable Stephie Mahoney MD Unavailable Federica Foster RN Unavailable Tova Welch RD Unavailable [phone] Stephie Mahoney MD Unavailable [phone] Olga Garcia RN Unavailable [phone] Junior Chavira MD Unavailable [phone] Shantel Walker MD Unavailable [phone] Junior Chavira MD Unavailable [phone] Coni Dhaliwal STORY ANALYST Unavailable [phone] Anel Long NP Unavailable [phone] Angel Balbuena MD Unavailable [phone] Encounter Details Date Type Department Care Team (Late st Contact Info) Description 06/02/2024 [facility] Heart [address] [place] [phone] Valerie Henderson Social History Tobacco Use Types [...] Answer Date Recorded PHQ-2 Score 0 11/23/2023 [facility] of Occupat ional Health - Occupational [...] AM CDT Legal Sex Male 3:40 AM 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 Gender Identity Male 03/03/2019 9:24 PM CDT Sexual Orientation Straight 03/03/2019 9: 24 PM CDT documented as of this encounter Plan of Treatment Upcoming Encounters Date Type Department Care Team (Late st Contact Info) Description 12/17/2024 9:30 AM CDT [facility] [address] [place] [address] 12/23/2024 4:00 PM CDT Office Visit [facility] 6545 [facility] [address] [place] [phone] Cyrus Aleman MD [address] [place] [address] 01/27/2025 10:00 AM CDT Office Visit [facility] Neurology [facility] 1650 [facility] 200 [place] [phone] Anel Long, SECOND CRUSHER [address] [facility] [place], [place] [address] Coni Dhaliwal CNP 3665 [facility] 450 [place], [place] [address] 04/14/2025 11:15 AM CDT Office Visit [facility] Heart [facility] [address] [facility] [address] [place] [phone] Inessa Esteves DO [address] [place], [place] [address] 06/05/2025 12:30 PM CDT Office Visit [facility] Endocrinology Clinic [address] [phone] Stephie Mahoney MD [address] 631125 11/13/2025 11:00 AM CDT Virtual Visit [facility] Endocrinology [address] [phone] Stephie Mahoney MD [address] 580625 documented as of this encounter Visit Diagnoses Not on filedocumented in this encounter Additional Health Concerns Infection Onset Date Last Indicated Resolved Time Rule Out COVID-19 10/12/2024 10/12/2024 10/12/2024 11:31 AM NEGATIVE CLEANER documented as of this encounter Care Teams Drywall Application Supervisor Relationship Specialty [place] [address] [place] [address] PCP - General Family Practice 11/21/16 [place] [address] [place] [address] Assigned PCP 01/30/21 07/11/24 Stephie Mahoney MD [address] [place] [address] 040155 Endocrinology, Diabetes, and Metabolism 04/22/21 Federica Foster RN [address] [place] [address] [address] [employer] Diabetes Education 04/22/[address] [place] [address]80384 [address] [employer] Nutrition 04/22/21 Stephie Mahoney MD [address] 566605 Assigned Endocrinology Provider 05/08/21 Olga Garcia, RN Specialty Injury Prevention Coordinator INTERNAL MEDICINE - ENDOCRINOLOGY, DIABETES & METABOLISM 09/29/22 Junior Chavira MD [address] [place] [address] Cardiovascular Disease 05/29/24 [place] [address] [place] [address] Assigned PCP 07/12/24 Junior Chavira MD [address] [place] [address] Assigned Heart and Vascular Provider 08/11/24 Coni Dhaliwal CNP [address] [place] [address] Nurse Practitioner Psychiatry & Neurology Vascular Neurology 11/04/24 Anel Long NP [address] [place] [address] Nurse Practitioner Psychiatry & Neurology Vascular Neurology 11/04/24 Angel Balbuena MD [address] [place] [address] Assigned Heart and Vascular Surgical Provider 12/10/24 documented as of this encounter
--- OUTSIDE RECORDS SUMMARY | 2024-12-12 00:32 | XMS_ITS | Encounter Summary ---
Author Organization [facility] Address [address] [place] [address]. [place] [address] Care Team Providers Care Child Nutrition Director Name Role Phone Wilber Vidales MD Primary Care Provider [phone] Matt Baez MD Unavailable Wilber Vidales MD Unavailable Stephie Mahoney MD Unavailable Federica Foster RN Unavailable Tova Welch RD Unavailable [phone] Stephie Mahoney MD Unavailable Olga Garcia RN Unavailable [phone] Matt Baez MD Unavailable [phone] Junior Chavira MD Unavailable [phone] Shantel Walker MD Unavailable [phone] Junior Chavira MD Unavailable [phone] Coni Dhaliwal CNP Unavailable [phone] Anel Long NP Unavailable [phone] Angel Balbuena MD Unavailable Encounter Details Date Type Department Care Team (Late st Contact Info) Description 07/05/2021 MyC Medical Advice [facility] Diabetes Education [address] 3rd [place] [address] Federica Foster, RN 420 [place] [address] Social History Tobacco Use Types Packs/Day Years [...] do you attend [facility] or zoroastrian services? 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 No / Unsure 06/27/2021 6:41 AM TECHNICAL PRODUCT MANAGER documented as of this encounter Plan of Treatment Upcoming Encounters Date Type Department Care Team (Late st Contact Info) Description 12/17/2024 9:30 AM CDT Lab [facility] Laboratory [address] [place] [phone] 12/23/2024 4:00 PM CDT Office Visit [facility] 6545 [facility] 450 [place] [phone] Cyrus Aleman MD [address] [place] [address] 861835 01/27/2025 10:00 AM CDT Office Visit [facility] Neurology [facility] [address] [place] [address] 200 [place] [phone] Anel Long IT PROGRAMMER ANALYST [address] [place], [place] [address] Coni Dhaliwal, DRUM SANDER SETTER [address] [facility] 450 [place], [place] [address] 04/14/2025 11:15 AM CDT Office Visit [facility] Heart [facility] [address] [facility] [address] [place] [phone] Inessa Esteves, [address] [place], [place] [address] 06/05/2025 12:30 PM CDT Office Visit [facility] Endocrinology [address] [place] [address] Stephie Mahoney MD [address] [place] [address] 101 [place], [place] [address] 11/13/2025 11:00 AM CDT Virtual Visit [facility] Endocrinology [address] [place] [phone] Stephie Mahoney MD [address] 688305 documented as of this encounter Visit Diagnoses Not on filedocumented in this encounter Additional Health Concerns Infection Onset Date Last Indicated Resolved Time Rule Out COVID-19 03/10/2022 03/10/2022 03/10/2022 1:37 AM CDT COVID-19 03/10/2022 03/10/2022 03/31/2022 11:3 9 PM CDT Rule Out COVID-19 10/12/2024 10/12/2024 10/12/2024 11:31 AM TECHNICAL PRODUCT MANAGER documented as of this encounter Care Teams Child Nutrition Director Relationship Specialty [place] [address] [place] [address] PCP - General Family Practice 11/21/16 Matt Baez MD [address] [facility] [address] [place] [address] Assigned Heart and Vascular Provider 06/11/20 06/23/22 [place] [address] [place] [address] Assigned PCP 01/30/21 07/11/24 Stephie Mahoney MD [address] [address] Endocrinology, Diabetes, and Metabolism 04/22/21 Federica Foster, RN 420 [place] [address] Casing Running Machine Tender Diabetes Education 04/22/[address] [place] [address] Casing Running Machine Tender Nutrition 04/22/21 Stephie Mahoney MD [address] [place] [address] 101 [place] [address] Assigned Endocrinology Provider 05/08/21 Olga Garcia RN Specialty Senior Genetic Counselor INTERNAL MEDICINE - ENDOCRINOLOGY, DIABETES & METABOLISM 09/29/22 Matt Baez MD [address] [place], [place] [address] Assigned Heart and Vascular Provider 12/23/22 05/04/23 Junior Chavira MD [address] [place] [address] Cardiovascular Disease 05/29/24 [place] [address] [place] [address] Assigned PCP 07/12/24 Junior Chavira MD [address] [place] 341075 Assigned Heart and Vascular Provider 08/11/24 Coni Dhaliwal, DRUM SANDER SETTER [address] [place] 4827[address] Nurse Practitioner Psychiatry & Neurology Vascular Neurology 11/04/24 Anel Long, IT PROGRAMMER ANALYST [address] [place] [address] Nurse Practitioner Psychiatry & Neurology Vascular Neurology 11/04/24 Angel Balbuena MD [address] [place] [address] Assigned Heart and Vascular Surgical Provider 12/10/24 documented as of this encounter
--- OUTSIDE RECORDS SUMMARY | 2024-12-12 00:32 | XMS_ITS | Encounter Summary ---
Author Organization [facility] Address [address] [place] [address]. [place] [address] Care Team Providers Care At Home Independent Call Center Agent Name Role Phone Wilber Vidales MD Primary Care Provider [phone] Wilber Vidales MD Unavailable Matt Baez MD Unavailable [phone] Wilber Vidales MD Unavailable Wilber Vidales MD Unavailable Stephie Mahoney MD Unavailable [phone] Federica Foster RN Unavailable [phone] Unavailable [phone] Stephie Mahoney MD Unavailable [phone] Olga Garcia RN Unavailable [phone] Matt Baez MD Unavailable Junior Chavira MD Unavailable [phone] Shantel Walker MD Unavailable [phone] Junior Chavira MD Unavailable [phone] Coni Dhaliwal CNP Unavailable [phone] Anel Long NP Unavailable [phone] Angel Balbuena MD Unavailable [phone] Encounter Details Date Type Department Care Team (Late st Contact Info) Description 10/29/[address] 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 [address] [place] [phone] 12/23/2024 4:00 PM CDT Office Visit [address] [address] Cyrus Aleman MD [address] [place] [address] 332565 01/27/2025 10:00 AM CDT Office Visit [facility] Neurology [address] [place] [address] Anel Long NP [address] [place] [address]39[address] Coni Dhaliwal, HEALTH EVALUATOR [address] [place] 724175 04/14/2025 11:15 AM CDT Office Visit [facility] Heart [facility] [address] [facility] [address] [place] [phone] Inessa Esteves DO [address] [place] 244595 06/05/2025 12:30 PM CDT Office Visit [facility] Endocrinology Clinic [address] [phone] Stephie Mahoney MD [address] [place] [address] 469005 11/13/2025 11:00 AM CDT Virtual Visit [facility] Endocrinology [address] [phone] Stephie Mahoney MD [address] [place] [address] 823995 documented as of this encounter Visit Diagnoses Not on filedocumented in this encounter Additional Health Concerns Infection Onset Date Last Indicated Resolved Time Rule Out COVID-19 03/10/2022 03/10/2022 03/10/2022 1:37 AM CDT COVID-19 03/10/2022 03/10/2022 03/31/2022 11:3 9 PM CDT Rule Out COVID-19 10/12/2024 10/12/2024 10/12/2024 11:31 AM AIRPLANE CAPTAIN documented as of this encounter Care Teams At Home Independent Call Center Agent Relationship Specialty [place] [address] [address] [address] [address] PCP - General Family Practice 11/21/16 [place] [address] [address] [address] [address] Assigned PCP 10/31/20 01/29/21 Matt Baez MD [address] [place] 734145 Assigned Heart and Vascular Provider 06/11/20 06/23/22 [place] [address] [address] [address] [address] Assigned PCP 11/02/16 10/30/20 [place] [address] [address] [address] Assigned PCP 01/30/21 07/11/24 Stephie Mahoney MD [address] [place] [address] Endocrinology, Diabetes, and Metabolism 04/22/21 Federica Foster, RN [address] [place] [address] [phone] Licensed Funeral Director Diabetes Education 04/22/21 Tova Welch, RD [address] [place] [address] Licensed Funeral Director Nutrition 04/22/21 Stephie Mahoney MD [address] [place] [address] 101 [place] [address] Assigned Endocrinology Provider 05/08/21 Olga Garcia, RN Specialty Kitchen Clerk INTERNAL MEDICINE - ENDOCRINOLOGY, DIABETES & METABOLISM 09/29/22 Matt Baez MD [address] [place] 826245 Assigned Heart and Vascular Provider 12/23/22 05/04/23 Junior Chavira MD [address] [place] 501665 Cardiovascular Disease 05/29/24 [place] [address] [place] [address] Assigned PCP 07/12/24 Junior Chavira MD [address] [place] 648515 Assigned Heart and Vascular Provider 08/11/24 Coni Dhaliwal, COREY [address] [place] 482345 Nurse Practitioner Psychiatry & Neurology Vascular Neurology 11/04/24 Anel Long NP [address] [place] 848945 Nurse Practitioner Psychiatry & Neurology Vascular Neurology 11/04/24 Angel Balbuena MD 909 [place], [place] 114215 Assigned Heart and Vascular Surgical Provider 12/10/24 documented as of this encounter
--- OUTSIDE RECORDS SUMMARY | 2024-12-12 00:32 | XMS_ITS | Encounter Summary ---
Author Organization [place] Address [address] [place] [address]. [place] [address] Care Team Providers Care Change Control Analyst Name Role Phone Wilber Vidales MD Primary Care Provider [phone] Matt Baez MD Unavailable Wilber Vidales MD Unavailable Stephie Mahoney MD Unavailable Federica Foster RN Unavailable Tova Welch RD Unavailable [phone] Stephie Mahoney MD Unavailable Olga Garcia RN Unavailable [phone] Matt Baez MD Unavailable [phone] Junior Chavira MD Unavailable [phone] Shantel Walker MD Unavailable [phone] Junior Chavira MD Unavailable [phone] Coni Dhaliwal CNP Unavailable [phone] Anel Long NP Unavailable [phone] Angel Balbuena MD Unavailable [phone] Encounter Details Date Type Department Care Team (Late st Contact Info) Description 07/27/2021 MyC Medical Advice [facility] Diabetes Education [address] 3rd [place] [address] Federica Foster, RN 420 [place] [address] Social History Tobacco Use Types Packs/Day Years [...] [facility] or oriental orthodox services? 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 No / Unsure 06/27/2021 6:41 AM DRIER UNLOADER documented as of this encounter Plan of Treatment Upcoming Encounters Date Type Department Care Team (Late st Contact Info) Description 12/17/2024 9:30 AM CDT Lab [facility] [address] [place] [phone] 12/23/2024 4:00 PM CDT Office Visit [facility] 6545 [facility] 450 [place] [phone] Cyrus Aleman MD [address] [place] [address] 679055 01/27/2025 10:00 AM CDT Office Visit [facility] Neurology [facility] [address] [place] [address] 200 [place] [phone] Anel Long CONFERENCE PRODUCER [address] [place], [place] [address] Coni Dhaliwal, HEDIS ABSTRACTOR [address] [facility] 450 [place], [place] 349775 04/14/2025 11:15 AM CDT Office Visit [facility] Heart [facility] [address] [facility] [address] [place] [phone] Inessa Esteves, [address] [place], [place] 377205 06/05/2025 12:30 PM CDT Office Visit [facility] Endocrinology [address] [place] [address] Stephie Mahoney MD [address] [place] [address] 101 [place], [place] 8[address]45 11/13/2025 11:00 AM CDT Virtual Visit [facility] Endocrinology [address] [place] [phone] Stephie Mahoney MD [address] [phone] documented as of this encounter Visit Diagnoses Not on filedocumented in this encounter Additional Health Concerns Infection Onset Date Last Indicated Resolved Time Rule Out COVID-19 03/10/2022 03/10/2022 03/10/2022 1:37 AM CDT COVID-19 03/10/2022 03/10/2022 03/31/2022 11:3 9 PM CDT Rule Out COVID-19 10/12/2024 10/12/2024 10/12/2024 11:31 AM DRIER UNLOADER documented as of this encounter Care Teams Change Control Analyst Relationship Specialty [place] [address] [place] [address] PCP - General Family Practice 11/21/16 Matt Baez MD [address] [facility] [address] [place] [address] Assigned Heart and Vascular Provider 06/11/20 06/23/22 [place] [address] [place] [address] Assigned PCP 01/30/21 07/11/24 Stephie Mahoney MD [address] [address] Endocrinology, Diabetes, and Metabolism 04/22/21 Federica Foster, RN 420 [place] [address] Mixed Animal Veterinarian Diabetes Education 04/22/[address] [place] [address] Mixed Animal Veterinarian Nutrition 04/22/21 Stephie Mahoney MD [address] [place] [address] 101 [place] [address] Assigned Endocrinology Provider 05/08/21 Olga Garcia RN Specialty Compressor Operator Portable INTERNAL MEDICINE - ENDOCRINOLOGY, DIABETES & METABOLISM 09/29/22 Matt Baez MD [address] [place], [place] [address] Assigned Heart and Vascular Provider 12/23/22 05/04/23 Junior Chavira MD [address] [place] 07[address]65 Cardiovascular Disease 05/29/24 [place] [address] [place] [address] Assigned PCP 07/12/24 Junior Chavira MD [address] [place] 259295 Assigned Heart and Vascular Provider 08/11/24 Coni Dhaliwal, HEDIS ABSTRACTOR [address] [place] 0775[address] Nurse Practitioner Psychiatry & Neurology Vascular Neurology 11/04/24 Anel Long, CONFERENCE PRODUCER [address] [place] 483785 Nurse Practitioner Psychiatry & Neurology Vascular Neurology 11/04/24 Angel Balbuena MD [address] [place] [address] Assigned Heart and Vascular Surgical Provider 12/10/24 documented as of this encounter
--- OUTSIDE RECORDS SUMMARY | 2024-12-12 00:32 | XMS_ITS | Encounter Summary ---
Author Organization [place] Address [address] [place] [address]. [place] [address] Care Team Providers Care Keg Inspector Name Role Phone Wilber Vidales MD Primary Care Provider [phone] Matt Baez MD Unavailable Wilber Vidales MD Unavailable Stephie Mahoney MD Unavailable Federica Foster RN Unavailable Tova Welch RD Unavailable [phone] Stephie Mahoney MD Unavailable Olga Gracia RN Unavailable [phone] Matt Baez MD Unavailable [phone] Junior Chavira MD Unavailable [phone] Shantel Walker MD Unavailable [phone] Junior Chavira MD Unavailable [phone] Coni Dhaliwal CNP Unavailable [phone] Anel Long NP Unavailable [phone] Angel Balbuena MD Unavailable Encounter Details Date Type Department Care Team (Late st Contact Info) Description 08/06/2021 MyC Medical Advice [facility] Diabetes Education [address] 3rd [place] [address] Federica Foster, RN 420 [place] [address] Social History Tobacco Use Types Packs/Day Years [...] week 06/27/2021 How often do you attend [facility] or nondenominational services? 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 Gender Identity Male 03/03/2019 9:24 PM CDT Sexual Orientation Straight 03/03/2019 9: 24 PM CDT documented as of this encounter Plan of Treatment Upcoming Encounters Date Type Department Care Team (Late st Contact Info) Description 12/17/2024 9:30 AM CDT [facility] [address] [place] [address] 12/23/2024 4:00 PM CDT Office Visit [facility] 6545 [facility] 450 [place] [phone] Cyrus Aleman MD [address] [place] [address] 01/27/2025 10:00 AM CDT Office Visit [facility] Neurology [facility] [address] [place] [address] 200 [place] [phone] Anel Long, MASTER SHIP [address] [facility] [place], [place] [address] Coni Dhaliwal, METAL TILE LATHER 9145 [facility] 450 [place], [place] 5[address]15 04/14/2025 11:15 AM CDT Office Visit [facility] Heart [facility] [address] [facility] [address] [place] [phone] Inessa Esteves DO 6405 [facility] [address] [place], [place] [address] 06/05/2025 12:30 PM CDT Office Visit [facility] Endocrinology Clinic [address] [phone] Stephie Mahoney MD [address] [place] [address] 292525 11/13/2025 11:00 AM CDT Virtual Visit [facility] Endocrinology Clinic [address] [phone] Stephie Mahoney MD [address] 435[address] documented as of this encounter Visit Diagnoses Not on filedocumented in this encounter Additional Health Concerns Infection Onset Date Last Indicated Resolved Time Rule Out COVID-19 03/10/2022 03/10/2022 03/10/2022 1:37 AM CDT COVID-19 03/10/2022 03/10/2022 03/31/2022 11:3 9 PM CDT Rule Out COVID-19 10/12/2024 10/12/2024 10/12/2024 11:31 AM VALIDATION LEADER documented as of this encounter Care Teams Keg Inspector Relationship Specialty [place] [address] [address] [address] PCP - General Family Practice 11/21/16 Matt Baez MD [address] [facility] [address] [place] [address] Assigned Heart and Vascular Provider 06/11/20 06/23/22 [place] [address] [address] [address] [address] Assigned PCP 01/30/21 07/11/24 Stephie Mahoney MD [address] [address] Endocrinology, Diabetes, and Metabolism 04/22/21 Federica Foster, RN 420 [place], [place] [address] Motorcycle Riding Instructor Diabetes Education 04/22/21 Tova Welch, OSCAR [address] [place] [address] Motorcycle Riding Instructor Nutrition 04/22/21 Stephie Mahoney MD [address] [place] [address] [facility] 101 [place], [place] [address] Assigned Endocrinology Provider 05/08/21 Olga Garcia, RN Specialty Physician Pediatrician INTERNAL MEDICINE - ENDOCRINOLOGY, DIABETES & METABOLISM 09/29/22 Matt Baez MD [address] [place], [place] [address] Assigned Heart and Vascular Provider 12/23/22 05/04/23 Junior Chavira MD [address] [place], [place] 780135 Cardiovascular Disease 05/29/24 [place] [address] [place] [address] Assigned PCP 07/12/24 Junior Chavira MD [address] [place], [place] 243825 Assigned Heart and Vascular Provider 08/11/24 Coni Dhaliwal CNP [address] [place], [place] [address] Nurse Practitioner Psychiatry & Neurology Vascular Neurology 11/04/24 Anel Long NP [address] [place] 524[address] Nurse Practitioner Psychiatry & Neurology Vascular Neurology 11/04/24 Angel Balbuena MD [address] [place] [address] Assigned Heart and Vascular Surgical Provider 12/10/24 documented as of this encounter
--- OUTSIDE RECORDS SUMMARY | 2024-12-12 00:32 | XMS_ITS | Encounter Summary ---
Author Organization [facility] Address [address] [place] [address]. [place] [address] Care Team Providers Care Cartography Technician Name Role Phone Wilber Vidales MD Primary Care Provider [phone] Wilber Vidales MD Unavailable Matt Baez MD Unavailable [phone] Wilber Vidales MD Unavailable Wilber Vidales MD Unavailable Stephie Mahoney MD Unavailable [phone] Federica Foster RN Unavailable [phone] Unavailable [phone] Stephie Mahoney MD Unavailable [phone] Olga Garcia RN Unavailable [phone] Matt Baez MD Unavailable Junior Chavira MD Unavailable [phone] Shantel Walker MD Unavailable [phone] Junior Chavira MD Unavailable [phone] Coni Dhaliwal CNP Unavailable [phone] Anel Long NP Unavailable [phone] Angel Balbuena MD Unavailable [phone] Encounter Details Date Type Department Care Team (Late st Contact Info) Description 06/24/2019 MyC Medical Advice [facility] Cardiothoracic [address] [place] [address] Ej Haines MD [address] [place] [address] [facility] 207 [place] [address] Social History Tobacco Use Types [...] Answer Date Recorded PHQ-2 Score 0 08/27/2018 [facility] [place] of Occupat ional Health - Occupational Stress [...] AM CDT 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 Gender Identity Male 03/03/2019 9:24 PM CDT Sexual Orientation Straight 03/03/2019 9: 24 PM CDT documented as of this encounter Plan of Treatment Upcoming Encounters Date Type Department Care Team (Late st Contact Info) Description 12/17/2024 9:30 AM CDT Lab [facility] Laboratory [address] [place] [phone] 12/23/2024 4:00 PM CDT Office Visit [address] [phone] Cyrus Aleman MD [address] [place] [address] 843705 01/27/2025 10:00 AM CDT Office Visit [facility] Neurology [address] 200 [place] [phone] Anel Long, OUTPATIENT PHYSICAL THERAPIST [address]65 [place], [place] 2323[address] Coni Dhaliwal, COREY [address] 529725 04/14/2025 11:15 AM CDT Office Visit [facility] Heart [facility] [address] [facility] [address] [place] [address] LeroyreesevannesaEliazarInessasergio FunesDO [address] [place] [address] 06/05/2025 12:30 PM CDT Office Visit [facility] Endocrinology [address]rd [place] [phone] Stephie Mahoney MD [address] [place] [address] 951635 11/13/2025 11:00 AM CDT Virtual Visit [facility] Endocrinology [address] [phone] Stephie Mahoney MD [address] [place] [address] 565945 documented as of this encounter Visit Diagnoses Not on filedocumented in this encounter Additional Health Concerns Infection Onset Date Last Indicated Resolved Time Rule Out COVID-19 03/10/2022 03/10/2022 03/10/2022 1:37 AM CDT COVID-19 03/10/2022 03/10/2022 03/31/2022 11:3 9 PM CDT Rule Out COVID-19 10/12/2024 10/12/2024 10/12/2024 11:31 AM HOUSE MANAGER documented as of this encounter Care Teams Cartography Technician Relationship Specialty [place] [address] [address] [address] PCP - General Family Practice 11/21/16 [place] [address] [address] [address] Assigned PCP 10/31/20 01/29/21 Matt Baez MD [address] [facility] [address] [place] [address] Assigned Heart and Vascular Provider 06/11/20 06/23/22 [place] [address] [place] [address] Assigned PCP 11/02/16 10/30/20 [place] [address] [place] [address] Assigned PCP 01/30/21 07/11/24 Stephie Mahoney MD [address] [place] [address] Endocrinology, Diabetes, and Metabolism 04/22/21 Federica Foster RN [address] [place] [address] Hand Tool Filer Diabetes Education 04/22/[address] [place] [address] Hand Tool Filer Nutrition 04/22/21 Stephie Mahoney MD [address] [place] [address] Assigned Endocrinology Provider 05/08/21 Olga Garcia RN Specialty Shoe Stainer INTERNAL MEDICINE - ENDOCRINOLOGY, DIABETES & METABOLISM 09/29/22 Matt Baez MD [address] [place] [address] Assigned Heart and Vascular Provider 12/23/22 05/04/23 Junior Chavira MD [address] [place] 18[address]65 Cardiovascular Disease 05/29/24 [place] [address] [place] [address] Assigned PCP 07/12/24 Junior Chavira MD [address] [place] [address] Assigned Heart and Vascular Provider 08/11/24 Coni Dhaliwal CNP [address] [place] [address]395 Nurse Practitioner Psychiatry & Neurology Vascular Neurology 11/04/24 Anel Long NP [address] [place] [address] Nurse Practitioner Psychiatry & Neurology Vascular Neurology 11/04/24 Angel Balbuena MD 909 [facility] [place], [place] [address] Assigned Heart and Vascular Surgical Provider 12/10/24 documented as of this encounter
--- OUTSIDE RECORDS SUMMARY | 2024-12-12 00:33 | XMS_ITS | Encounter Summary ---
Author Organization [facility] Address [address] [place], [place] [address]. [place] [address] Care Team Providers Care Paper Machine Supervisor Name Role Phone Wilber Vidales MD Primary Care Provider [phone] Wilber Vidales MD Unavailable Stephie Mahoney MD Unavailable Federica Foster RN Unavailable Tova Welch RD Unavailable [phone] Stephie Mahoney MD Unavailable [phone] Olga Garcia RN Unavailable [phone] Junior Chavira MD Unavailable [phone] Shantel Walker MD Unavailable +[phone] Junior Chavira MD Unavailable [phone] Coni Dhaliwal ANODIC TREATER Unavailable +[phone] Anel Long NP Unavailable [phone] Angel Balbuena MD Unavailable [phone] Encounter Details Date Type Department Care Team (Late st Contact Info) Description 05/29/2024 [facility] Heart [address] [place] [phone] Damaris Tripathi Social History Tobacco Use Types [...] Answer Date Recorded PHQ-2 Score 0 11/23/2023 [facility] of Occupat ional [...] CDT 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 [address] [place] [address] 12/23/2024 4:00 PM CDT Office Visit [facility] 65[address] [facility] [address] [place] [phone] Cyrus Aleman MD [address] [place] [address] 01/27/2025 10:00 AM CDT Office Visit [facility] Neurology [facility] 1650 [facility] 200 [place] [phone] Anel Long, SUPERVISOR POLICY CHANGE CLERKS [address] [place], [place] [address] Coni Dhaliwal CNP 2[address] [facility] 450 [place], [place] [address] 04/14/2025 11:15 AM CDT Office Visit [facility] Heart [facility] [address] [facility] [address] [place] [phone] Inessa Esteves DO [address] [place], [place] [address] 06/05/2025 12:30 PM CDT Office Visit [facility] Endocrinology Clinic [address] [phone] Stephie Mahoney MD [address] 308[address] 11/13/2025 11:00 AM CDT Virtual Visit [facility] Endocrinology [address] [phone] Stephie Mahoney MD [address] 292325 documented as of this encounter Visit Diagnoses Not on filedocumented in this encounter Additional Health Concerns Infection Onset Date Last Indicated Resolved Time Rule Out COVID-19 10/12/2024 10/12/2024 10/12/2024 11:31 AM CAR WASH SUPERVISOR documented as of this encounter Care Teams Paper Machine Supervisor Relationship Specialty [place] [address] [address] [address] PCP - General Family Practice 11/21/16 [place] [address] [address] [address] Assigned PCP 01/30/21 07/11/24 Stephie Mahoney MD [address] [place] [address] 465265 Endocrinology, Diabetes, and Metabolism 04/22/21 Federica Foster RN [address] [place] [address] [phone] Stave Hewer Diabetes Education 04/22/[address] [place] [address] 305554 Stave Hewer Nutrition 04/22/21 Stephie Mahoney MD [address] 612945 Assigned Endocrinology Provider 05/08/21 Olga Garcia, RN Specialty Potato Seed Cutter INTERNAL MEDICINE - ENDOCRINOLOGY, DIABETES & METABOLISM 09/29/22 Junior Chavira MD [address] [place] [address] Cardiovascular Disease 05/29/24 [place] [address] [place] [address] Assigned PCP 07/12/24 Junior Chavira MD [address] [place] [address] Assigned Heart and Vascular Provider 08/11/24 Coni Dhaliwal CNP [address] [place] [address] Nurse Practitioner Psychiatry & Neurology Vascular Neurology 11/04/24 Anel Long NP [address] [place] [address] Nurse Practitioner Psychiatry & Neurology Vascular Neurology 11/04/24 Angel Balbuena MD [address] [place] [address] Assigned Heart and Vascular Surgical Provider 12/10/24 documented as of this encounter
--- OUTSIDE RECORDS SUMMARY | 2024-12-12 00:33 | XMS_ITS | Encounter Summary ---
Author Organization [facility] Address [address] [place], [place] [address]jer[place]. [place] [address] Care Team Providers Care Booster Operator Name Role Phone Wilber Vidales MD Primary Care Provider [phone] Wilber Vidales MD Unavailable Stephie Mahoney MD Unavailable [phone] Federica Foster RN Unavailable [phone] Unavailable [phone] Stephie Mahoney MD Unavailable [phone] Olga Garcia RN Unavailable [phone] Junior Chavira MD Unavailable [phone] Shantel Walker MD Unavailable [phone] Junior Chavira MD Unavailable [phone] Coni Dhaliwal CHARGING CAR OPERATOR Unavailable [phone] Anel Long NP Unavailable Reason for Visit * Reason Onset Date Comments Appointment 05/29/2024 Referral per Isk os Encounter Details Date Type Department Care Team (Late st Contact Info) Description 05/29/2024 [facility] Heart [address] [place] [phone] Candy Trivedi MD [address] [place] [address] Appointment (Referral per Shikha) Social History Tobacco [...] often do you attend chur ch or zoroastrianism services? 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 Gender Identity Male 03/03/2019 9:24 PM CDT Sexual Orientation Straight 03/03/2019 9: 24 PM CDT documented as of this encounter Miscellaneous Notes * Telephone Encounter - Kari Sanders - 05/29/2024 12:21 PM CDT [facility] Call Center Phone Message May [...] Info) Description 12/17/2024 9:30 AM CDT Lab [facility] Laboratory [address] [place] [address] 12/23/2024 4:00 PM CDT Office Visit [address] [phone] Cyrus Aleman MD [address] [place] [address] 01/27/2025 10:00 AM CDT Office Visit [facility] Neurology [address] 200 [place] [address] Anel Long NP 6545 [place], [place] [address] Coni Dhaliwal, CHARGING CAR OPERATOR [address] [address] 04/14/2025 11:15 AM CDT Office Visit [facility] Heart [facility] [address] [facility] [address] [place] [phone] Inessa Esteves, [address] [place] [address] 06/05/2025 12:30 PM CDT Office Visit [facility] Endocrinology Clinic [address] 3rd [place] [phone] Stephie Mahoney MD [address] [place] [address] 425795 11/13/2025 11:00 AM CDT Virtual Visit [facility] Endocrinology Clinic [address] [phone] Stephie Mahoney MD [address] [place] [address] 635035 documented as of this encounter Visit Diagnoses Not on filedocumented in this encounter Additional Health Concerns Infection Onset Date Last Indicated Resolved Time Rule Out COVID-19 10/12/2024 10/12/2024 10/12/2024 11:31 AM HCC CODERS documented as of this encounter Care Teams Booster Operator Relationship Specialty [place] [address] [address] [address] PCP - General Family Practice 11/21/16 [place] [address] [address] [address] Assigned PCP 01/30/21 07/11/24 Stephie Mahoney MD [address] [place] [address] Endocrinology, Diabetes, and Metabolism 04/22/21 Federica Foster, RN 420 [place] [address] Logistics Management Specialist Diabetes Education 04/22/[address] [place] [address] Logistics Management Specialist Nutrition 04/22/21 Stephie Mahoney MD [address] [address] Assigned Endocrinology Provider 05/08/21 Olga Garcia RN Specialty Information Delivery Analyst INTERNAL MEDICINE - ENDOCRINOLOGY, DIABETES & METABOLISM 09/29/22 Junior Chavira MD [address] [place] [id number] Cardiovascular Disease 05/29/24 [place] [address] [place] [address] Assigned PCP 07/12/24 Junior Chavira MD [address] [place] 068555 Assigned Heart and Vascular Provider 08/11/24 Coni Dhaliwal, CHARGING CAR OPERATOR [address] [place] 297825 Nurse Practitioner Psychiatry & Neurology Vascular Neurology 11/04/24 Anel Long, TARIK [address] [place] 735885 Nurse Practitioner Psychiatry & Neurology Vascular Neurology 11/04/24 documented as of this encounter
--- OUTSIDE RECORDS SUMMARY | 2024-12-12 00:33 | XMS_ITS | Encounter Summary ---
Author Organization [facility] Address [address] [place] [address]. [place] [address] Care Team Providers Care Laborer Vineyard Name Role Phone Wilber Vidales MD Primary Care Provider [phone] Wilber Vidales MD Unavailable Stephie Mahoney MD Unavailable [phone] Federica Foster RN Unavailable Tova Welch RD Unavailable [phone] Stephie Mahoney MD Unavailable [phone] Olga Garcia RN Unavailable [phone] Matt Baez MD Unavailable [phone] Junior Chavira MD Unavailable [phone] Shantel Walker MD Unavailable [phone] Junior Chavira MD Unavailable [phone] Coni Dhaliwal ACADEMIC DEAN Unavailable [phone] Anel Long ELECTRO MECHANICAL ASSEMBLER Unavailable [phone] Angel Balbuena MD Unavailable [phone] Encounter Details Date Type Department Care Team (Late st Contact Info) Description 04/27/[address] [facility] Endocrinology Clinic [address] 3rd [place] [address] Stephie Mahoney MD 420 [facility] 101 [place], [place] 949745 Social History Tobacco Use Types Packs/Day Years [...] week 06/27/2021 How often do you attend [facility] or restorationism services? 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 Gender Identity Male 03/03/2019 9:24 PM CDT Sexual Orientation Straight 03/03/2019 9: 24 PM CDT documented as of this encounter Plan of Treatment Upcoming Encounters Date Type Department Care Team (Late st Contact Info) Description 12/17/2024 9:30 AM CDT [address] [address] 12/23/2024 4:00 PM CDT Office Visit [facility] 6545 [facility] [address] [place] [phone] Cyrus Aleman MD [address] [place] [address] 01/27/2025 10:00 AM CDT [facility] Visit [facility] Neurology [facility] [address] [place] [address] [address] [place] [phone] Anel Long, ELECTRO MECHANICAL ASSEMBLER [address] [place], [place] [address] Coni Dhaliwal, ACADEMIC DEAN [address] [facility] 450 [place], [place] [address] 04/14/2025 11:15 AM CDT Office Visit [facility] Heart [facility] 92345 [facility] 140 [place] [address] Inessa Esteves, [address] [place], [place] [address] 06/05/2025 12:30 PM CDT Office Visit [facility] Endocrinology Clinic [address] [phone] Stephie Mahoney MD [address] [place] [address] 310185 11/13/2025 11:00 AM CDT Virtual Visit [facility] Endocrinology [address] [phone] Stephie Mahoney MD [address] [place] [address] 671275 documented as of this encounter Visit Diagnoses Not on filedocumented in this encounter Additional Health Concerns Infection Onset Date Last Indicated Resolved Time Rule Out COVID-19 10/12/2024 10/12/2024 10/12/2024 11:31 AM TRANSFORMATION SPECIALIST documented as of this encounter Care Teams Laborer Vineyard Relationship Specialty [place] [address] [address] [address] PCP - General Family Practice 11/21/16 [place] [address] [address] [address] Assigned PCP 01/30/21 07/11/24 Stephie Mahoney MD [address] [place] [address] 050195 Endocrinology, Diabetes, and Metabolism 04/22/21 Federica Foster RN [address] [place] [address] 677815 Auto Body Repairman Diabetes Education 04/22/[address] [place] [address] Auto Body Repairman Nutrition 04/22/21 Stephie Mahoney MD [address] [place] [address] Assigned Endocrinology Provider 05/08/21 Olga Garcia, RN Specialty Supervisor Industrial Garment INTERNAL MEDICINE - ENDOCRINOLOGY, DIABETES & METABOLISM 09/29/22 Matt Baez MD [address] [facility] [address] [place] [address] Assigned Heart and Vascular Provider 12/23/22 05/04/23 Junior Chavira MD [address] [place] 317385 Cardiovascular Disease 05/29/24 [place] [address] [place] [address] Assigned PCP 07/12/24 Junior Chavira MD [address] [place] 016845 Assigned Heart and Vascular Provider 08/11/24 Coni Dhaliwal CNP [address] [place] 783905 Nurse Practitioner Psychiatry & Neurology Vascular Neurology 11/04/24 Anel Long NP [address] [place] 34[address]75 Nurse Practitioner Psychiatry & Neurology Vascular Neurology 11/04/24 Angel Balbuena MD 909 [place], [place] 355[address] Assigned Heart and Vascular Surgical Provider 12/10/24 documented as of this encounter
--- OUTSIDE RECORDS SUMMARY | 2024-12-12 00:33 | XMS_ITS | Encounter Summary ---
Author Organization [place] Address [address] [place] [address]. [place] [address] Care Team Providers Care Cardiology Clinical Nurse Specialist Name Role Phone Wilber Vidales MD Primary Care Provider [phone] Wilber Vidales MD Unavailable Matt Baez MD Unavailable [phone] Wilber Vidales MD Unavailable Wilber Vidales MD Unavailable Stephie Mahoney MD Unavailable [phone] Federica Foster RN Unavailable [phone] Unavailable [phone] Stephie Mahoney MD Unavailable [phone] Olga Garcia RN Unavailable [phone] Matt Baez MD Unavailable Junior Chavira MD Unavailable [phone] Shantel Walker MD Unavailable [phone] Junior Chavira MD Unavailable [phone] Coni Dhaliwal CNP Unavailable [phone] Anel Long NP Unavailable [phone] Angel Balbuena MD Unavailable [phone] Encounter Details Date Type Department Care Team (Late st Contact Info) Description 06/23/2019 [facility] Medical Advice [facility] Cardiothoracic [address] [place] [address] Ej Haines MD [address] [place] [address] [facility] 207 [place] [address] Social History Tobacco Use Types [...] and Family Once a week 03/17/2019 Attends Worship Services More than 4 times per year [...] Answer Date Recorded PHQ-2 Score 0 08/27/2018 [facility] [place] of Occupat ional Health - Occupational Stress [...] AM CDT 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 Gender Identity Male 03/03/2019 9:24 PM CDT Sexual Orientation Straight 03/03/2019 9: 24 PM CDT documented as of this encounter Plan of Treatment Upcoming Encounters Date Type Department Care Team (Late st Contact Info) Description 12/17/2024 9:30 AM CDT Lab [facility] Laboratory [address] [place] [phone] 12/23/2024 4:00 PM CDT Office Visit [address] [phone] Cyrus Aleman MD [address] [place] [address] 890215 01/27/2025 10:00 AM CDT Office Visit [facility] Neurology [address] 200 [place] [phone] Anel Long, BOLT SORTER 8128 [place], [place] [address]65 Coni Dhaliwal, COREY [address] 241765 04/14/2025 11:15 AM CDT Office Visit [facility] Heart [facility] [address] [facility] [address] [place] [phone] LeroyreesevannesaEliazarInessasergio FunesDO [address] [place] [address] 06/05/2025 12:30 PM CDT Office Visit [facility] Endocrinology [address]rd [place] [phone] Stephie Mahoney MD [address] [place] [address] 888125 11/13/2025 11:00 AM CDT Virtual Visit [facility] Endocrinology [address] [phone] Stephie Mahoney MD [address] [place] [address] 587945 documented as of this encounter Visit Diagnoses Not on filedocumented in this encounter Additional Health Concerns Infection Onset Date Last Indicated Resolved Time Rule Out COVID-19 03/10/2022 03/10/2022 03/10/2022 1:37 AM CDT COVID-19 03/10/2022 03/10/2022 03/31/2022 11:3 9 PM CDT Rule Out COVID-19 10/12/2024 10/12/2024 10/12/2024 11:31 AM CLEAN UP WORKER documented as of this encounter Care Teams Cardiology Clinical Nurse Specialist Relationship Specialty [place] [address] [address] [address] PCP - General Family Practice 11/21/16 [place] [address] [address] [address] Assigned PCP 10/31/20 01/29/21 Matt Baez MD [address] [facility] [address] [place] [address] Assigned Heart and Vascular Provider 06/11/20 06/23/22 [place] [address] [place] [address] Assigned PCP 11/02/16 10/30/20 [place] [address] [place] [address] Assigned PCP 01/30/21 07/11/24 Stephie Mahoney MD [address] [place] [address] Endocrinology, Diabetes, and Metabolism 04/22/21 Federica Foster RN [address] [place] [address] Porcelain Finish Sprayer Diabetes Education 04/22/[address] [place] [address] Porcelain Finish Sprayer Nutrition 04/22/21 Stephie Mahoney MD [address] [place] [address] Assigned Endocrinology Provider 05/08/21 Olga Garcia RN Specialty Lathe Winder INTERNAL MEDICINE - ENDOCRINOLOGY, DIABETES & METABOLISM 09/29/22 Matt Baez MD [address] [place] [address] Assigned Heart and Vascular Provider 12/23/22 05/04/23 Junior Chavira MD [address] [place] 340755 Cardiovascular Disease 05/29/24 [place] [address] [place] [address] Assigned PCP 07/12/24 Junior Chavira MD [address] [place] [address] Assigned Heart and Vascular Provider 08/11/24 Coni Dhaliwal CNP [address] [place] 262785 Nurse Practitioner Psychiatry & Neurology Vascular Neurology 11/04/24 Anel Long NP [address] [place] [address] Nurse Practitioner Psychiatry & Neurology Vascular Neurology 11/04/24 Angel Balbuena MD 909 [facility] [place], [place] [address] Assigned Heart and Vascular Surgical Provider 12/10/24 documented as of this encounter
--- OUTSIDE RECORDS SUMMARY | 2024-12-12 00:33 | XMS_ITS | Encounter Summary ---
Author Organization [facility] Address [address] [place] [address]. [place] [address] Care Team Providers Care Heel Scourer Name Role Phone Wilber Vidales MD Primary Care Provider [phone] Wilber Vidales MD Unavailable Stephie Mahoney MD Unavailable Federica Foster RN Unavailable Tova Welch RD Unavailable [phone] Stephie Mahoney MD Unavailable [phone] Olga Garcia RN Unavailable [phone] Matt Baez MD Unavailable +[phone] Junior Chavira MD Unavailable [phone] Shantel Walker MD Unavailable [phone] Junior Chavira MD Unavailable [phone] Coni Dhaliwal SPORTING GOODS SALESPERSON Unavailable +[phone] Anel Long CIDER PRESS OPERATOR Unavailable [phone] Angel Balbuena MD Unavailable [phone] Encounter Details Date Type Department Care Team (Late st Contact Info) Description 04/02/2023 [facility] Medical [facility] Endocrinology Clinic [address] [place] [address] Olga Garcia, RN Social History [...] week 06/27/2021 How often do you attend [facility] or caodaism services? 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 Gender Identity Male 03/03/2019 9:24 PM CDT Sexual Orientation Straight 03/03/2019 9: 24 PM CDT documented as of this encounter Plan of Treatment Upcoming Encounters Date Type Department Care Team (Late st Contact Info) Description 12/17/2024 9:30 AM CDT Lab [facility] Laboratory [address] [place] [address] 12/23/2024 4:00 PM CDT Office Visit [address] [phone] Cyrus Aleman MD 909 [place] [address] 01/27/2025 10:00 AM CDT Office Visit [facility] Neurology Clinic [address] [place] [address] Anel Long, CIDER PRESS OPERATOR [address] [place] [address] Coni Dhaliwal, SPORTING GOODS SALESPERSON [address] [facility] 450 [place], [place] [address]885 04/14/2025 11:15 AM CDT Office Visit [facility] [address] [place] [address] 140 [place] [phone] Inessa Esteves DO [address] [place], [place] [address] 06/05/2025 12:30 PM CDT Office Visit [facility] Endocrinology Clinic [address] [phone] Stephie Mahoney MD [address] [place] [address] 438405 11/13/2025 11:00 AM CDT Virtual Visit [facility] Endocrinology [address] [phone] Stephie Mahoney MD [address] [place] [address] 293855 documented as of this encounter Visit Diagnoses Not on filedocumented in this encounter Additional Health Concerns Infection Onset Date Last Indicated Resolved Time Rule Out COVID-19 10/12/2024 10/12/2024 10/12/2024 11:31 AM BUTTON CUTTER documented as of this encounter Care Teams Heel Scourer Relationship Specialty [place] [address] [address] [address] PCP - General Family Practice 11/21/16 [place] [address] [address] [address] Assigned PCP 01/30/21 07/11/24 Stephie Mahoney MD [address] [place] [address] 635305 Endocrinology, Diabetes, and Metabolism 04/22/21 Federica Foster RN [address] [place] [address] [phone] Kick Boxer Diabetes Education 04/22/[address] [place] [address] 192934 Kick Boxer Nutrition 04/22/21 Stephie Mahoney MD [address] [place] [address] 540725 Assigned Endocrinology Provider 05/08/21 Olga Garcia RN Specialty Freight Tallier INTERNAL MEDICINE - ENDOCRINOLOGY, DIABETES & METABOLISM 09/29/22 Matt Baez MD [address] [email or web address] [address] [place], [place] 561485 Assigned Heart and Vascular Provider 12/23/22 05/04/23 Junior Chavira MD [address] [place] 573[address] Cardiovascular Disease 05/29/24 [place] [address] [place] [address] Assigned PCP 07/12/24 Junior Chavira MD [address] [place] 6[address]65 Assigned Heart and Vascular Provider 08/11/24 Coni Dhaliwal CNP [address] [place] [address]105 Nurse Practitioner Psychiatry & Neurology Vascular Neurology 11/04/24 Anel Long NP [address] [place], [place] 56[address] Nurse Practitioner Psychiatry & Neurology Vascular Neurology 11/04/24 Angel Balbuena MD 909 [place], [place] 151535 Assigned Heart and Vascular Surgical Provider 12/10/24 documented as of this encounter
--- OUTSIDE RECORDS SUMMARY | 2024-12-12 00:33 | XMS_ITS | Encounter Summary ---
Author Organization [facility] Address [address] [place] [address]. [place] [address] Care Team Providers Care Furnace Clerk Name Role Phone Wilber Vidales MD Primary Care Provider [phone] Wilber Vidales MD Unavailable Stephie Mahoney MD Unavailable [phone] Federica Foster RN Unavailable +[phone] Unavailable [phone] Stephie Mahoney MD Unavailable [phone] Olga Garcia RN Unavailable +[phone] Matt Baez MD Unavailable [phone] Junior Chavira MD Unavailable [phone] Shantel Walker MD Unavailable [phone] Junior Chavira MD Unavailable [phone] Coni Dhaliwal CNP Unavailable [phone] Anel Long NP Unavailable [phone] Reason for Visit * Reason Onset Date Comments Call Back 04/02/2023 Encounter Details Date Type Department Care Team (Late st Contact Info) Description 04/02/2023 [facility] Endocrinology Clinic [address] 3rd [place] [phone] Stephie Mahoney MD 420 [facility] 101 [place] [address] Call Back Social History Tobacco Use Types [...] often do you attend chur ch or jew services? 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 Gender Identity Male 03/03/2019 9:24 PM CDT [...] YocastaNishantCarey - 04/02/2023 1:07 PM CDT M [facility] Call Center Phone Message May a detailed [...] AM CDT Lab [facility] [address] [place] [address] 12/23/2024 4:00 PM CDT Office Visit [facility] [address] [place] [phone] Cyrus Aleman MD [address] [place] [address] 675015 01/27/2025 10:00 AM CDT Office Visit [facility] Neurology [facility] [address] [place] [address] [address] [place] [phone] Anel Long LIVESTOCK SPECULATOR 9818 [place], [place] 042655 Coni Dhaliwal, LIFE ENRICHMENT MANAGER [address] [facility] 450 [place] [address] 04/14/2025 11:15 AM CDT Office Visit [facility] Heart [facility] [address] [facility] [address] [place] [phone] Inessa Esteves DO [address] [place] [address] 06/05/2025 12:30 PM CDT Office Visit [facility] Endocrinology Clinic [place] 909 [facility] 3rd [place] [phone] Stephie Mahoney MD [address] 650075 11/13/2025 11:00 AM CDT Virtual Visit [facility] Endocrinology [address] [phone] Stephie Mahoney MD [address] [place] [address] 495475 documented as of this encounter Visit Diagnoses Not on filedocumented in this encounter Additional Health Concerns Infection Onset Date Last Indicated Resolved Time Rule Out COVID-19 10/12/2024 10/12/2024 10/12/2024 11:31 AM DYNAMITE RECLAIMER documented as of this encounter Care Teams Furnace Clerk Relationship Specialty [place] [address] [address] [address] PCP - General Family Practice 11/21/16 [place] [address] [address] [address] Assigned PCP 01/30/21 07/11/24 Stephie Mahoney MD [address] [place] [address] Endocrinology, Diabetes, and Metabolism 04/22/21 Federica Foster, RN 420 [place] [address] Battery Hand Diabetes Education 04/22/21 Tova Welch, RD [address] [place] [address] 090884 Battery Hand Nutrition 04/22/21 Stephie Mahoney MD 420 [facility] 101 [place], [place] 398195 Assigned Endocrinology Provider 05/08/21 Olga Garcia RN Specialty Repairer Shoe Sticks INTERNAL MEDICINE - ENDOCRINOLOGY, DIABETES & METABOLISM 09/29/22 Matt Baez MD [address] [facility] [place] [address] Assigned Heart and Vascular Provider 12/23/22 05/04/23 Junior Chavira MD [address] [place] [address]85 Cardiovascular Disease 05/29/24 [place] [address] [place] [address] Assigned PCP 07/12/24 Junior Cahvira MD [address] [place] 453015 Assigned Heart and Vascular Provider 08/11/24 Coni Dhaliwal CNP [address] [place] [address] Nurse Practitioner Psychiatry & Neurology Vascular Neurology 11/04/24 Anel Long NP [address] [place] [address] Nurse Practitioner Psychiatry & Neurology Vascular Neurology 11/04/24 documented as of this encounter
--- OUTSIDE RECORDS SUMMARY | 2024-12-12 00:33 | XMS_ITS | Encounter Summary ---
Author Organization [place] Address [address] [place] [address]. [place] [address] Care Team Providers Care Chart Computer Name Role Phone Wilber Vidales MD Primary Care Provider [phone] Wilber Vidales MD Unavailable Stephie Mahoney MD Unavailable Federica Foster RN Unavailable Tova Welch RD Unavailable [phone] Stephie Mahoney MD Unavailable [phone] Olga Garcia RN Unavailable [phone] Matt Baez MD Unavailable +[phone] Junior Chavira MD Unavailable [phone] Shantel Walker MD Unavailable [phone] Junior Chavira MD Unavailable [phone] Coni Dhaliwal MACHINE HOSE CUTTER Unavailable [phone] Anel Long COSMETIC SALES ADVISOR Unavailable [phone] Angel Balbuena MD Unavailable [phone] Encounter Details Date Type Department Care Team (Late st Contact Info) Description 04/13/2023 [facility] Endocrinology Clinic [address] 3rd [place] [address] Stephie Mahoney MD 420 [facility] 101 [place], [place] [address] Social History Tobacco Use Types Packs/Day Years [...] often do you attend [facility] or yarsanism services? 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 Gender Identity Male 03/03/2019 9:24 PM CDT Sexual Orientation Straight 03/03/2019 9: 24 PM CDT documented as of this encounter Plan of Treatment Upcoming Encounters Date Type Department Care Team (Late st Contact Info) Description 12/17/2024 9:30 AM CDT [address] [address] 12/23/2024 4:00 PM CDT Office Visit [facility] 6545 [facility] [address] [place] [phone] Cyrus Aleman MD [address] [place] [address] 01/27/2025 10:00 AM CDT Office Visit [facility] Neurology [facility] [address] [place] [address] [address] [place] [phone] Anel Long, COSMETIC SALES ADVISOR [address] [place], [place] [address] Coni Dhaliwal, MACHINE HOSE CUTTER [address] [facility] 450 [place], [place] 66[address] 04/14/2025 11:15 AM CDT Office Visit [facility] Heart [facility] 60208 [facility] 140 [place] [phone] Inessa Esteves, [address] [place], [place] [address]195 06/05/2025 12:30 PM CDT Office Visit [facility] Endocrinology Clinic [address] [phone] Stephie Mahoney MD [address] [place] [address] 466175 11/13/2025 11:00 AM CDT Virtual Visit [facility] Endocrinology [address] [phone] Stephie Mahoney MD [address] [place] [address] 883025 documented as of this encounter Visit Diagnoses Not on filedocumented in this encounter Additional Health Concerns Infection Onset Date Last Indicated Resolved Time Rule Out COVID-19 10/12/2024 10/12/2024 10/12/2024 11:31 AM LD TEACHER documented as of this encounter Care Teams Chart Computer Relationship Specialty [place] [address] [address] [address] PCP - General Family Practice 11/21/16 [place] [address] [address] [address] Assigned PCP 01/30/21 07/11/24 Stephie Mahoney MD [address] [place] [address] 782085 Endocrinology, Diabetes, and Metabolism 04/22/21 Federica Foster RN [address] [place] [address] 720775 Event Coordinator Diabetes Education 04/22/[address] [place] [address] Event Coordinator Nutrition 04/22/21 Stephie Mahoney MD [address] [place] [address] Assigned Endocrinology Provider 05/08/21 Olga Garcia, RN Specialty Line Cleaner INTERNAL MEDICINE - ENDOCRINOLOGY, DIABETES & METABOLISM 09/29/22 Matt Baez MD [address] [place] 183285 Assigned Heart and Vascular Provider 12/23/22 05/04/23 Junior Chavira MD [address] [place] 655195 Cardiovascular Disease 05/29/24 [place] [address] [place] [address] Assigned PCP 07/12/24 Junior Chavira MD [address] [place] 602335 Assigned Heart and Vascular Provider 08/11/24 Coni Dhaliwal CNP [address] [place] 65[address]25 Nurse Practitioner Psychiatry & Neurology Vascular Neurology 11/04/24 Anel Long NP [address] [place] 440715 Nurse Practitioner Psychiatry & Neurology Vascular Neurology 11/04/24 Angel Balbuena MD 909 [place], [place] 38985[address] Assigned Heart and Vascular Surgical Provider 12/10/24 documented as of this encounter
--- OUTSIDE RECORDS SUMMARY | 2024-12-12 00:34 | XMS_ITS | Encounter Summary ---
Author Organization [facility] Address [address] [place] [address]. [place] [address] Care Team Providers Care Barrel Filler Name Role Phone Wilber Vidales MD Primary Care Provider [phone] Wilber Vidales MD Unavailable Stephie Mahoney MD Unavailable [phone] Federica Foster RN Unavailable [phone] Unavailable [phone] Stephie Mahoney MD Unavailable [phone] Olga Garcia RN Unavailable [phone] Junior Chavira MD Unavailable [phone] Shantel Walker MD Unavailable [phone] Junior Chavira MD Unavailable [phone] Coni Dhaliwal LOADING SUPERVISOR Unavailable [phone] Anel Long NP Unavailable [phone] Angel Balbuena MD Unavailable [phone] Encounter Details Date Type Department Care Team (Late st Contact Info) Description 05/14/2023 [facility] Endocrinology Clinic [place] 850489 [facility] 3rd [place] [address] Stephie Mahoney MD 420 [facility] 101 [place] [address] Social History Tobacco Use Types [...] do you attend [facility] or confucianist services? 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 Gender Identity Male 03/03/2019 9:24 PM [...] CDT Lab [facility] [address] [place] [phone] 12/23/2024 4:00 PM CDT Office Visit [facility] 6545 [facility] 450 [place] [phone] Cyrus Aleman MD [address] [place] [address] 617875 01/27/2025 10:00 AM CDT Office Visit [facility] Neurology [facility] [address] [place] [address] 200 [place] [phone] Anel Long, SENIOR CONTRACT SPECIALIST [address] [place], [place] 57[address] Coni Dhaliwal, LOADING SUPERVISOR [address] [facility] 450 [place], [place] 210145 04/14/2025 11:15 AM CDT Office Visit [facility] Heart [facility] [address] [facility] [address] [place] [phone] Inessa Esteves, [address] [place], [place] 7[address] 06/05/2025 12:30 PM CDT Office Visit [facility] Endocrinology Clinic [address] 3rd [place] [address] Stephie Mahoney MD [address] [place] [address] 101 [place], [place] 318305 11/13/2025 11:00 AM CDT Virtual Visit [facility] Endocrinology [address] 3rd [place] [phone] Stephie Mahoney MD [address] [place] [address] documented as of this encounter Visit Diagnoses Not on filedocumented in this encounter Additional Health Concerns Infection Onset Date Last Indicated Resolved Time Rule Out COVID-19 10/12/2024 10/12/2024 10/12/2024 11:31 AM COMMODITIES MANAGER documented as of this encounter Care Teams Barrel Filler Relationship Specialty [place] [address] [place] [address] PCP - General Family Practice 11/21/16 [place] [address] [place] [address] Assigned PCP 01/30/21 07/11/24 Stephie Mahoney MD [address] [place] [address] Endocrinology, Diabetes, and Metabolism 04/22/21 Federica Foster, RN [address] [place] [address] Lastex Thread Winder Diabetes Education 04/22/[address] [place] [address] Lastex Thread Winder Nutrition 04/22/21 Stephie Mahoney MD [address] [place] [address] Assigned Endocrinology Provider 05/08/21 Olga Garcia RN Specialty Tiler'S Assistant INTERNAL MEDICINE - ENDOCRINOLOGY, DIABETES & METABOLISM 09/29/22 Junior Chavira MD [address] [place] 309775 Cardiovascular Disease 05/29/24 [place] [address] [place] [address] Assigned PCP 07/12/24 Junior Chavira MD [address] [place], [place] 663875 Assigned Heart and Vascular Provider 08/11/24 Coni Dhaliwal CNP [address] [place], [place] 565115 Nurse Practitioner Psychiatry & Neurology Vascular Neurology 11/04/24 Anel Long NP [address] [place], [place] 318545 Nurse Practitioner Psychiatry & Neurology Vascular Neurology 11/04/24 Angel Balbuena MD 909 [place], [place] 484435 Assigned Heart and Vascular Surgical Provider 12/10/24 documented as of this encounter
--- OUTSIDE RECORDS SUMMARY | 2024-12-12 00:34 | XMS_ITS | Encounter Summary ---
Author Organization [place] Address [address] [place] [address]. [place] [address] Care Team Providers Care Cut Off Machine Operator Name Role Phone Wilber Vidales MD Primary Care Provider [phone] Matt Baez MD Unavailable Wilber Vidales MD Unavailable Stephie Mahoney MD Unavailable Federica Foster RN Unavailable Tova Welch RD Unavailable [phone] Stephie Mahoney MD Unavailable Olga Garcia RN Unavailable [phone] Matt Baez MD Unavailable +[phone] Junior Chavira MD Unavailable [phone] Shantel Walker MD Unavailable [phone] Junior Chavira MD Unavailable [phone] Coni Dhaliwal CNP Unavailable [phone] Anel Long NP Unavailable [phone] Angel Balbuena MD Unavailable [phone] Encounter Details Date Type Department Care Team (Late st Contact Info) Description 05/09/2021 [facility] Diabetes Education [place] 909 [facility] [address] 3rd [place] [address] Tova Welch, RD [address] [place] [address] Social History Tobacco Use Types Packs/Day Years [...] Answer Date Recorded PHQ-2 Score 0 03/21/2021 [facility] [place] of Occupat ional Health - Occupational Stress [...] AM CDT 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 Gender Identity Male 03/03/2019 9:24 PM CDT [...] 9:30 AM CDT Lab [facility] [address] [place] [address] 12/23/2024 4:00 PM CDT Office Visit [address] [phone] Cyrus Aleman MD [address] [place] [address] 281995 01/27/2025 10:00 AM CDT Office Visit [facility] Neurology [facility] [address] [place] [phone] Anel Long, HEEL BLACKER 2471 [place], [place] 496965 Coni Dhaliwal, JALOUSIES INSTALLER [address] [place] [address] 04/14/2025 11:15 AM CDT Office Visit [facility] Heart [facility] [address] [facility] [address] [place] [phone] YungjeromyEliazarInessa DO Shantel [address] [place] 63[address]45 06/05/2025 12:30 PM CDT Office Visit [facility] Endocrinology [address] [phone] Stephie Mahoney MD [address] [place] [address] 476945 11/13/2025 11:00 AM CDT Virtual Visit [facility] Endocrinology [address] [phone] Stephie Mahoney MD [address] [place] [address] 562315 documented as of this encounter Visit Diagnoses Not on filedocumented in this encounter Additional Health Concerns Infection Onset Date Last Indicated Resolved Time Rule Out COVID-19 03/10/2022 03/10/2022 03/10/2022 1:37 AM CDT COVID-19 03/10/2022 03/10/2022 03/31/2022 11:3 9 PM CDT Rule Out COVID-19 10/12/2024 10/12/2024 10/12/2024 11:31 AM INTERMODAL TRUCK DRIVER documented as of this encounter Care Teams Cut Off Machine Operator Relationship Specialty [place] [address] [place] [address] PCP - General Family Practice 11/21/16 Matt Baez MD [address] [place] 377135 Assigned Heart and Vascular Provider 06/11/20 06/23/22 [place] [address] [place] [address] Assigned PCP 01/30/21 07/11/24 Stephie Mahoney MD [address] 591795 Endocrinology, Diabetes, and Metabolism 04/22/21 Federica Foster RN 420 [place] [address] Crimping Machine Operator Diabetes Education 04/22/[address] [place] [address] Crimping Machine Operator Nutrition 04/22/21 Stephie Mahoney MD [address] [place] [address] Assigned Endocrinology Provider 05/08/21 Olga Garcia, RN Specialty Rotary Engine Assembler INTERNAL MEDICINE - ENDOCRINOLOGY, DIABETES & METABOLISM 09/29/22 Matt Baez MD [address] [place] [address] Assigned Heart and Vascular Provider 12/23/22 05/04/23 Junior Chavira MD [address] [place] 454625 Cardiovascular Disease 05/29/24 [place] [address] [place] [address] Assigned PCP 07/12/24 Junior Chavira MD [address] [place] [address] Assigned Heart and Vascular Provider 08/11/24 Coni Dhaliwal, COREY [address] [place] 541855 Nurse Practitioner Psychiatry & Neurology Vascular Neurology 11/04/24 Anel Long NP [address] [place] 433545 Nurse Practitioner Psychiatry & Neurology Vascular Neurology 11/04/24 Angel Balbuena MD [address] [place], [place] 404[address] Assigned Heart and Vascular Surgical Provider 12/10/24 documented as of this encounter
--- OUTSIDE RECORDS SUMMARY | 2024-12-12 00:34 | XMS_ITS | Encounter Summary ---
Author Organization [place] Address [address] [place] [address]. [place] [address] Care Team Providers Care School Photograph Editor Name Role Phone Wilber Vidales MD Primary Care Provider [phone] Wilber Vidales MD Unavailable Stephie Mahoney MD Unavailable [phone] Federica Foster RN Unavailable Tova Welch RD Unavailable [phone] Stephie Mahoney MD Unavailable [phone] Olga Garcia RN Unavailable [phone] Matt Baez MD Unavailable [phone] Junior Chavira MD Unavailable [phone] Shantel Walker MD Unavailable +[phone] Junior Chavira MD Unavailable [phone] Coni Dhaliwal ASSESSMENT SERVICES MANAGER Unavailable [phone] Anel Long HVAC SHEET METAL INSTALLER Unavailable [phone] Angel Balbuena MD Unavailable [phone] Encounter Details Date Type Department Care Team (Late st Contact Info) Description 04/27/2023 [facility] Endocrinology Clinic [address] 3rd [place] [address] Stephie Mahoney MD 420 [facility] 101 [place], [place] 572265 Social History Tobacco Use Types Packs/Day Years [...] week 06/27/2021 How often do you attend [facility] or yarsanism services? 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 Gender Identity Male 03/03/2019 9:24 PM CDT Sexual Orientation Straight 03/03/2019 9: 24 PM CDT documented as of this encounter Plan of Treatment Upcoming Encounters Date Type Department Care Team (Late st Contact Info) Description 12/17/2024 9:30 AM CDT [address] [address] 12/23/2024 4:00 PM CDT Office Visit [facility] 6545 [facility] [address] [place] [phone] Cyrus Aleman MD [address] [place] [address] 01/27/2025 10:00 AM CDT Office Visit [facility] Neurology [facility] [address] [place] [address] [address] [place] [phone] Anel Long, HVAC SHEET METAL INSTALLER [address] [place], [place] 3[address] Coni Dhaliwal, ASSESSMENT SERVICES MANAGER [address] [facility] 450 [place], [place] [address]695 04/14/2025 11:15 AM CDT Office Visit [facility] Heart [facility] [address] [facility] 140 [place] [phone] Inessa Esteves, [address] [place], [place] 8[address]85 06/05/2025 12:30 PM CDT Office Visit [facility] Endocrinology Clinic [address] [phone] Stephie Mahoney MD [address] [place] [address] 301115 11/13/2025 11:00 AM CDT Virtual Visit [facility] Endocrinology [address] [phone] Stephie Mahoney MD [address] [place] [address] 905825 documented as of this encounter Visit Diagnoses Not on filedocumented in this encounter Additional Health Concerns Infection Onset Date Last Indicated Resolved Time Rule Out COVID-19 10/12/2024 10/12/2024 10/12/2024 11:31 AM PROMOTIONS REPRESENTATIVE documented as of this encounter Care Teams School Photograph Editor Relationship Specialty [place] [address] [address] [address] PCP - General Family Practice 11/21/16 [place] [address] [address] [address] Assigned PCP 01/30/21 07/11/24 Stephie Mahoney MD [address] [place] [address] 526335 Endocrinology, Diabetes, and Metabolism 04/22/21 Federica Foster RN [address] [place] [address] 325055 Side Seam Tender Diabetes Education 04/22/[address] [place] [address] Side Seam Tender Nutrition 04/22/21 Stephie Mahoney MD [address] [place] [address] Assigned Endocrinology Provider 05/08/21 Olga Garcia, RN Specialty Home Service Director INTERNAL MEDICINE - ENDOCRINOLOGY, DIABETES & METABOLISM 09/29/22 Matt Baez MD [address] [facility] [address] [place] 381085 Assigned Heart and Vascular Provider 12/23/22 05/04/23 Junior Chavira MD [address] [place] 945865 Cardiovascular Disease 05/29/24 [place] [address] [place] [address] Assigned PCP 07/12/24 Junior Chavira MD [address] [place] 797105 Assigned Heart and Vascular Provider 08/11/24 Coni Dhaliwal CNP [address] [place] 75[address]95 Nurse Practitioner Psychiatry & Neurology Vascular Neurology 11/04/24 Anel Long NP [address] [place] 434865 Nurse Practitioner Psychiatry & Neurology Vascular Neurology 11/04/24 Angel Balbuena MD 909 [place], [place] 95438455 Assigned Heart and Vascular Surgical Provider 12/10/24 documented as of this encounter
--- OUTSIDE RECORDS SUMMARY | 2024-12-12 00:34 | XMS_ITS | Encounter Summary ---
Author Organization [place] Address [address] [place] [address]. [place] [address] Care Team Providers Care Mirror Silverer Name Role Phone Wilber Vidales MD Primary Care Provider [phone] Wilber Vidales MD Unavailable Stephie Mahoney MD Unavailable [phone] Federica Foster RN Unavailable [phone] Unavailable [phone] Stephie Mahoney MD Unavailable [phone] Olga Garcia RN Unavailable [phone] Junior Chavira MD Unavailable [phone] Shantel Walker MD Unavailable +[phone] Junior Chavira MD Unavailable [phone] Coni Dhaliwal MEDICAL RECORDS DIRECTOR Unavailable +[phone] Anel Long NP Unavailable [phone] Angel Balbuena MD Unavailable [phone] Encounter Details Date Type Department Care Team (Late st Contact Info) Description 05/15/2023 [place] [facility] Adv[facility] Endocrinology Clinic [place] [address] [facility] 3rd [place] [address] Olga Garcia, RN Social History [...] week 06/27/2021 How often do you attend [facility] health system or episcopalian services? More than 4 times [...] Answer Date Recorded PHQ-2 Score 0 03/30/2023 [facility] [place] of Occupat ional Health - Occupational [...] a nursing home (including now)? 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 [address] [facility] [address] [place] [address] Cyrus Aleman MD [address] [place] [address] 392215 01/27/2025 10:00 AM CDT Office Visit [facility] Neurology [facility] 1650 [facility] [address] [place] [phone] Anel Long, SUBSTATION OPERATOR APPRENTICE [address] [place], [place] 42[address] Coni Dhaliwal CNP [address] [facility] 450 [place], [place] 5[address]85 04/14/2025 11:15 AM CDT Office Visit [facility] Heart [facility] [address] [facility] [address] [place] [phone] Inessa Esteves DO [address] [place], [place] [address] 06/05/2025 12:30 PM CDT Office Visit [facility]ology Clinic [address] 3rd [place] [address] Stephie Mahoney MD [address] [place] [address] 439115 11/13/2025 11:00 AM CDT Virtual Visit [facility]ology [facility] [address] 3rd [place] [phone] Stephie Mahoney MD [address] [place] [address] documented as of this encounter Visit Diagnoses Not on filedocumented in this encounter Additional Health Concerns Infection Onset Date Last Indicated Resolved Time Rule Out COVID-19 10/12/2024 10/12/2024 10/12/2024 11:31 AM ENTERPRISE PROJECT MANAGER documented as of this encounter Care Teams Mirror Silverer Relationship Specialty [place] [address] [address] [address] PCP - General Family Practice 11/21/16 [place] [address] [address] [address] Assigned PCP 01/30/21 07/11/24 Stephie Mahoney MD [address] [place] [address] 860615 Endocrinology, Diabetes, and Metabolism 04/22/21 Federica Foster RN [address] [place] [address] 550515 Magnet Maker Diabetes Education 04/22/[address] [place] [address] [phone] Magnet Maker Nutrition 04/22/21 Stephie Mahoney MD [address] 627485 Assigned Endocrinology Provider 05/08/21 Olga Garcia, RN Specialty Wood Heel Cementer INTERNAL MEDICINE - ENDOCRINOLOGY, DIABETES & METABOLISM 09/29/22 Junior Chavira MD [address] [place] 203555 Cardiovascular Disease 05/29/24 [place] [address] [place] [address] Assigned PCP 07/12/24 Junior Chavira MD [address] [place] 030525 Assigned Heart and Vascular Provider 08/11/24 Coni Dhaliwal CNP [address] [place] [address] Nurse Practitioner Psychiatry & Neurology Vascular Neurology 11/04/24 Anel Long NP [address] [place] 902165 Nurse Practitioner Psychiatry & Neurology Vascular Neurology 11/04/24 Angel Balbuena MD 909 [place], [place] 105025 Assigned Heart and Vascular Surgical Provider 12/10/24 documented as of this encounter
--- OUTSIDE RECORDS SUMMARY | 2024-12-12 00:34 | XMS_ITS | Encounter Summary ---
Author Organization [place] Address [address] [place] [address]. [place] [address] Care Team Providers Care Biological Lab Technician Name Role Phone Wilber Vidales MD Primary Care Provider [phone] Matt Baez MD Unavailable Wilber Vidales MD Unavailable Stephie Mahoney MD Unavailable Federica Foster RN Unavailable Tova Welch [address] Unavailable [phone] Stephie Mahoney MD Unavailable Olga Garcia RN Unavailable [phone] Matt Baez MD Unavailable +[phone] Junior Chavira MD Unavailable [phone] Shantel Walker MD Unavailable [phone] Junior Chavira MD Unavailable [phone] Coni Dhaliwal CNP Unavailable [phone] Anel Long NP Unavailable [phone] Angel Balbuena MD Unavailable [phone] Encounter Details Date Type Department Care Team (Late st Contact Info) Description 05/02/2021 My[facility] Medical Advice [facility] Endocrinology Clinic [place] 402219 [facility] [address] 3rd [place] [address] Stephie Mahoney MD 420 [facility] 101 [place] [address] Social History Tobacco Use Types Packs/Day Years [...] Answer Date Recorded PHQ-2 Score 0 03/21/2021 [facility] [place] of Occupat ional Health - Occupational Stress [...] AM CDT 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 Gender Identity Male 03/03/2019 9:24 PM [...] Info) Description 12/17/2024 9:30 AM CDT Lab [facility] [address] [place] [address] 12/23/2024 4:00 PM CDT Office Visit [address] [phone] Cyrus [place] MD [address] [place] [address] 425865 01/27/2025 10:00 AM CDT Office Visit [facility] Neurology [facility] [address] [place] [phone] Anel Long, VAT WASHER 10[address] [place], [place] 015435 Coni Dhaliwal, HOOP RIVETING MACHINE OPERATOR HELPER [address] [place] [address] 04/14/2025 11:15 AM CDT Office Visit [facility] Heart [facility] [address] [facility] [address] [place] [phone] YungjeromyEliazarInessa DO Shantel [address] [place] [address] 06/05/2025 12:30 PM CDT Office Visit [facility] Endocrinology [address] [phone] Stephie Mahoney MD [address] [place] [address] 167335 11/13/2025 11:00 AM CDT Virtual Visit [facility] Endocrinology [address] [phone] Stephie Mahoney MD [address] [place] [address] 058085 documented as of this encounter Visit Diagnoses Not on filedocumented in this encounter Additional Health Concerns Infection Onset Date Last Indicated Resolved Time Rule Out COVID-19 03/10/2022 03/10/2022 03/10/2022 1:37 AM CDT COVID-19 03/10/2022 03/10/2022 03/31/2022 11:3 9 PM CDT Rule Out COVID-19 10/12/2024 10/12/2024 10/12/2024 11:31 AM WHEEL AND CASTER REPAIRER documented as of this encounter Care Teams Biological Lab Technician Relationship Specialty [place] [address] [place] [address] PCP - General Family Practice 11/21/16 Matt Baez MD [address] [place] [address] Assigned Heart and Vascular Provider 06/11/20 06/23/22 [place] [address] [place] [address] Assigned PCP 01/30/21 07/11/24 Stephie Mahoney MD [address] 330395 Endocrinology, Diabetes, and Metabolism 04/22/21 Federica Foster RN 420 [place] [address] Wildlife Policy Professional Diabetes Education 04/22/[address] [place] [address] Wildlife Policy Professional Nutrition 04/22/21 Stephie Mahoney MD [address] [place] [address] Assigned Endocrinology Provider 05/08/21 Olga Garcia, RN Specialty Jigman INTERNAL MEDICINE - ENDOCRINOLOGY, DIABETES & METABOLISM 09/29/22 Matt Baez MD [address] [place] 005085 Assigned Heart and Vascular Provider 12/23/22 05/04/23 Junior Chavira MD [address] [place] 363755 Cardiovascular Disease 05/29/24 [place] [address] [place] [address] Assigned PCP 07/12/24 Junior Chavira MD [address] [place] [address] Assigned Heart and Vascular Provider 08/11/24 Coni Dhaliwal, COREY [address] [place] 092925 Nurse Practitioner Psychiatry & Neurology Vascular Neurology 11/04/24 Anel Long NP [address] [place] [place] 259035 Nurse Practitioner Psychiatry & Neurology Vascular Neurology 11/04/24 Angel Balbuena MD [address] [place], [place] [address]25 Assigned Heart and Vascular Surgical Provider 12/10/24 documented as of this encounter
--- OUTSIDE RECORDS SUMMARY | 2024-12-12 00:34 | XMS_ITS | Encounter Summary ---
Author Organization [place] Address [address] [place] [address]. [place] [address] Care Team Providers Care Preventive Medicine Physician Name Role Phone Wilber Vidales MD Primary Care Provider [phone] Matt Baez MD Unavailable Wilber Vidales MD Unavailable Stephie Mahoney MD Unavailable Federica Foster RN Unavailable Tova Welch RD Unavailable [phone] Stephie Mahoney MD Unavailable Olga Garcia RN Unavailable [phone] Matt Baez MD Unavailable [phone] Junior Chavira MD Unavailable [phone] Shantel Walker MD Unavailable [phone] Junior Chavira MD Unavailable [phone] Coni Dhaliwal CNP Unavailable [phone] Anel Long NP Unavailable [phone] Angel Balbuena MD Unavailable [phone] Encounter Details Date Type Department Care Team (Late st Contact Info) Description 05/11/2021 My[facility] Medical Advice [facility] Diabetes Education [address] 3rd [place] [address] Federica Foster, RN 420 [place] [address] Social History Tobacco Use Types Packs/Day Years [...] Recorded PHQ-2 Score 0 03/21/2021 [facility] [place] of Occupat ional Health - Occupational Stress [...] AM CDT 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 Gender Identity Male 03/03/2019 9:24 PM [...] Info) Description 12/17/2024 9:30 AM CDT Lab [facility] [address] [place] [address] 12/23/2024 4:00 PM CDT Office Visit [address] [phone] Cyrus [place] MD [address] [place] [address] 640255 01/27/2025 10:00 AM CDT Office Visit [facility] Neurology [facility] [address] [place] [phone] Anel Long, COMMUNITY RELATIONS REPRESENTATIVE 6062 [place], [place] 378065 Coni Dhaliwal, VIRGINIA LINE ATTENDANT [address] [place] [address] 04/14/2025 11:15 AM CDT Office Visit [facility] Heart [facility] [address] [facility] [address] [place] [phone] YungjeromyEliazarInessa DO Shantel [address] [place] [address] 06/05/2025 12:30 PM CDT Office Visit [facility] Endocrinology [address] [phone] Stephie Mahoney MD [address] [place] [address] 092895 11/13/2025 11:00 AM CDT Virtual Visit [facility] Endocrinology [address] [phone] Stephie Mahoney MD [address] [place] [address] 383245 documented as of this encounter Visit Diagnoses Not on filedocumented in this encounter Additional Health Concerns Infection Onset Date Last Indicated Resolved Time Rule Out COVID-19 03/10/2022 03/10/2022 03/10/2022 1:37 AM CDT COVID-19 03/10/2022 03/10/2022 03/31/2022 11:3 9 PM CDT Rule Out COVID-19 10/12/2024 10/12/2024 10/12/2024 11:31 AM LETTERPRESS SETTER documented as of this encounter Care Teams Preventive Medicine Physician Relationship Specialty [place] [address] [place] [address] PCP - General Family Practice 11/21/16 Matt Baez MD [address] [place] 9[address]135 Assigned Heart and Vascular Provider 06/11/20 06/23/22 [place] [address] [place] [address] Assigned PCP 01/30/21 07/11/24 Stephie Mahoney MD [address] 031745 Endocrinology, Diabetes, and Metabolism 04/22/21 Federica Foster RN 420 [place] [address] Process Owner Diabetes Education 04/22/[address] [place] [address] Process Owner Nutrition 04/22/21 Stephie Mahoney MD [address] [place] [address] Assigned Endocrinology Provider 05/08/21 Olga Garcia, RN Specialty Director Of Exhibit Development INTERNAL MEDICINE - ENDOCRINOLOGY, DIABETES & METABOLISM 09/29/22 Matt Baez MD [address] [place] 491495 Assigned Heart and Vascular Provider 12/23/22 05/04/23 Junior Chavira MD [address] [place] 235825 Cardiovascular Disease 05/29/24 [place] [address] [place] [address] Assigned PCP 07/12/24 Junior Chavira MD [address] [place] [address] Assigned Heart and Vascular Provider 08/11/24 Coni Dhaliwal, COREY [address] [place] [address] Nurse Practitioner Psychiatry & Neurology Vascular Neurology 11/04/24 Anel Long NP [address] [place] [place] 665265 Nurse Practitioner Psychiatry & Neurology Vascular Neurology 11/04/24 Angel Balbuena MD [address] [place], [place] 283975 Assigned Heart and Vascular Surgical Provider 12/10/24 documented as of this encounter
--- OUTSIDE RECORDS SUMMARY | 2024-12-12 00:35 | XMS_ITS | Encounter Summary ---
Author Organization [place] Address [address] [place] [address]. [place] [address] Care Team Providers Care Surface Plate Finisher Name Role Phone Wilber Vidales MD Primary Care Provider [phone] Wilber Vidales MD Unavailable Stephie Mahoney MD Unavailable [phone] Federica Foster RN Unavailable Tova Welch [address] Unavailable [phone] Stephie Mahoney MD Unavailable [phone] Olga Garcia RN Unavailable [phone] Matt Baez MD Unavailable [phone] Junior Chavira MD Unavailable [phone] Shantel Walker MD Unavailable [phone] Junior Chavira MD Unavailable [phone] Coni Dhaliwal CUSTOM SKI MAKER Unavailable [phone] Anel Long BOOM STICK WORKER Unavailable [phone] Angel Balbuena MD Unavailable [phone] Encounter Details Date Type Department Care Team (Late st Contact Info) Description 01/25/2023 MyC Medical [facility] [address] 4th [place] [address] Sandra Villagomez Social History Tobacco [...] do you attend [facility] or [facility] services? 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 Gender Identity Male 03/03/2019 9:24 [...] [facility] [address] [place] [address] 12/23/2024 4:00 PM CDT Office Visit [facility] 6545 [facility] [address] [place] [phone] Cyrus [place] MD [address] [place] [address] 01/27/2025 10:00 AM CDT Office Visit [facility] Neurology [facility] 1650 [facility] [address] [place] [phone] Anel Long, BOOM STICK WORKER [address] [place], [place] [address] Coni Dhaliwal, CUSTOM SKI MAKER 6545 [facility] 450 [place], [place] [address] 04/14/2025 11:15 AM CDT Office Visit [facility] Heart [facility] [address] [facility] [address] [place] [phone] Inessa Esteves DO [address] [place], [place] [address] 06/05/2025 12:30 PM CDT Office Visit [facility] Endocrinology Clinic [address] [phone] Stephie Mahoney MD [address] [place] [address] 017515 11/13/2025 11:00 AM CDT Virtual Visit [facility] Endocrinology Clinic [address] [phone] Stephie Mahoney MD [address] [phone] documented as of this encounter Visit Diagnoses Not on filedocumented in this encounter Additional Health Concerns Infection Onset Date Last Indicated Resolved Time Rule Out COVID-19 10/12/2024 10/12/2024 10/12/2024 11:31 AM AIRPLANE PILOT documented as of this encounter Care Teams Surface Plate Finisher Relationship Specialty [place] [address] [address] [address] PCP - General Family Practice 11/21/16 [place] [address] [address] [address] Assigned PCP 01/30/21 07/11/24 Stephie Mahoney MD [address] [place] [address] 875045 Endocrinology, Diabetes, and Metabolism 04/22/21 Federica Foster RN [address] [place] [address] 610245 Hvac Sheet Metal Installer Helper Diabetes Education 04/22/21 Tova Welch, RD [address] [place] [address] [phone] Hvac Sheet Metal Installer Helper Nutrition 04/22/21 Stephie Mahoney MD [address] [place] [address] Assigned Endocrinology Provider 05/08/21 Olga Garcia, RN Specialty Project Construction Manager INTERNAL MEDICINE - ENDOCRINOLOGY, DIABETES & METABOLISM 09/29/22 Matt Baez MD [address] [facility] [address] [place] 3857[address] Assigned Heart and Vascular Provider 12/23/22 05/04/23 Junior Chavira MD [address] [place] 554[address] Cardiovascular Disease 05/29/24 [place] [address] [place] [address] Assigned PCP 07/12/24 Junior Chavira MD [address] [place] 513935 Assigned Heart and Vascular Provider 08/11/24 Coni Dhaliwal CNP [address] [place] [address] Nurse Practitioner Psychiatry & Neurology Vascular Neurology 11/04/24 Anel Long NP [address] [place] [address] Nurse Practitioner Psychiatry & Neurology Vascular Neurology 11/04/24 Angel Balbuena MD [address] [place] [address] Assigned Heart and Vascular Surgical Provider 12/10/24 documented as of this encounter
--- OUTSIDE RECORDS SUMMARY | 2024-12-12 00:35 | XMS_ITS | Encounter Summary ---
Author Organization [place] Address [address] [place] [address]. [place] [address] Care Team Providers Care Manager Of Change Name Role Phone Wilber Vidales MD Primary Care Provider [phone] Wilber Vidales MD Unavailable Stephie Mahoney MD Unavailable [phone] Federica Foster RN Unavailable Tova Welch RD Unavailable [phone] Stephie Mahoney MD Unavailable [phone] Olga Garcia RN Unavailable [phone] Matt Baez MD Unavailable [phone] Junior Chavira MD Unavailable [phone] Shantel Walker MD Unavailable [phone] Junior Chavira MD Unavailable [phone] Coni Dhaliwal SETTER JUICE PACKAGING MACHINES Unavailable +[phone] Anel Long FIRE MARSHAL REFINERY Unavailable [phone] Angel Balbuena MD Unavailable [phone] Encounter Details Date Type Department Care Team (Late st Contact Info) Description 01/24/2023 MyC Medical [facility] Endocrinology Clinic [address] 3rd [place] [address] Stephie Mahoney MD 420 [facility] 101 [place], [place] [address] Social History Tobacco Use Types Packs/Day Years [...] you attend [facility] or mormon services? More than 4 times [...] Answer Date Recorded PHQ-2 Score 0 09/29/2022 [facility] of Occupat ional Health - [...] CDT Legal Sex Male 3:40 AM PATIENT RESOURCE COORDINATOR Gender Identity Male 03/03/2019 9:24 PM [...] Description 12/17/2024 9:[address] [facility] [address] [place] [phone] 12/23/2024 4:00 PM CDT Office Visit [facility] 6545 [facility] 450 [place] [phone] Cyrus [place] MD [address] [place] [address] 928875 01/27/2025 10:00 AM CDT Office Visit [facility] Neurology [facility] [address] [place] [address] 200 [place] [phone] Anel Long, FIRE MARSHAL REFINERY [address] [place], [place] [address] Coni Dhaliwal, SETTER JUICE PACKAGING MACHINES [address] [facility] 450 [place], [place] [address]3925 04/14/2025 11:15 AM CDT Office Visit [facility] Heart [facility] [address] [facility] [address] [place] [phone] Inessa Esteves, [address] [place], [place] [address] 06/05/2025 12:30 PM CDT Office Visit [facility] Endocrinology [address]rd [place] [address] Stephie Mahoney MD [address] [place] [address] 101 [place], [place] [address] 11/13/2025 11:00 AM CDT Virtual Visit [facility] Endocrinology [address]rd [place] [phone] Stephie Mahoney MD [address] [place] [address] documented as of this encounter Visit Diagnoses Not on filedocumented in this encounter Additional Health Concerns Infection Onset Date Last Indicated Resolved Time Rule Out COVID-19 10/12/2024 10/12/2024 10/12/2024 11:31 AM PATIENT RESOURCE COORDINATOR documented as of this encounter Care Teams Manager Of Change Relationship Specialty [place] [address] [facility] [facility] [place] [address] PCP - General Family Practice 11/21/16 [place] [address] [place] [address] Assigned PCP 01/30/21 07/11/24 Stephie Mahoney MD [address] [place] [address] Endocrinology, Diabetes, and Metabolism 04/22/21 Federica Foster, RN [address] [place] [address] Information Security Director Diabetes Education 04/22/[address] [place] [address] Information Security Director Nutrition 04/22/21 Stephie Mahoney MD [address] [place] [address] 72487 Assigned Endocrinology Provider 05/08/21 Olga Garcia RN Specialty Meter Readers Supervisor INTERNAL MEDICINE - ENDOCRINOLOGY, DIABETES & METABOLISM 09/29/22 Matt Baez MD [address] [place] [address]115 Assigned Heart and Vascular Provider 12/23/22 05/04/23 Junior Chavira MD [address] [place] [address]65 Cardiovascular Disease 05/29/24 [place] [address] [place], [place] 61732[address] Assigned PCP 07/12/24 Junior Chavira MD [address] [place] [address] Assigned Heart and Vascular Provider 08/11/24 Coni Dhaliwal, COREY [address] [place] [address] Nurse Practitioner Psychiatry & Neurology Vascular Neurology 11/04/24 Anel Long NP [address] [place], [place] 68[address] Nurse Practitioner Psychiatry & Neurology Vascular Neurology 11/04/24 Angel Balbuena MD 909 [facility] [place] [place] [address] Assigned Heart and Vascular Surgical Provider 12/10/24 documented as of this encounter
--- OUTSIDE RECORDS SUMMARY | 2024-12-12 00:35 | XMS_ITS | Encounter Summary ---
Author Organization [facility] Address [address] [place] [address]. [place] [address] Care Team Providers Care Maintenance Welder Name Role Phone Wilber Vidales MD Primary Care Provider [phone] Wilber Vidales MD Unavailable Stephie Mahoney MD Unavailable [phone] Federica Foster RN Unavailable Tova Welch RD Unavailable [phone] Stephie Mahoney MD Unavailable +[phone] Olga Garcia RN Unavailable [phone] Matt Baez MD Unavailable +[phone] Junior Chavira MD Unavailable [phone] Shantel Walker MD Unavailable +[phone] Junior Chavira MD Unavailable [phone] Coni Dhaliwal PACKAGE SORTER Unavailable +[phone] Anel Long WEIGHMASTER LEAD Unavailable [phone] Angel Balbuena MD Unavailable [phone] Encounter Details Date Type Department Care Team (Late st Contact Info) Description 01/25/2023 [facility] [address] 4th [place] [address] Sandra Villagomez Social History Tobacco [...] week 06/27/2021 How often do you attend [facility] or mormonism services? 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 Gender Identity Male 03/03/2019 9:24 PM CDT [...] Contact Info) Description 12/17/2024 9:30 AM CDT [facility] Laboratory [address] [place] [address] 12/23/2024 4:00 PM CDT Office Visit [facility] [address] [facility] [address] [place] [address] Cyrus Aleman MD [address] [place] [address] 01/27/2025 10:00 AM CDT Office Visit [facility] Neurology [facility] [address] [facility] [address] [place] [address] Anel Long, WEIGHMASTER LEAD [address] [place], [place] [address] Coni Dhaliwal, PACKAGE SORTER 6545 [facility] 450 [place], [place] 46[address] 04/14/2025 11:15 AM CDT Office Visit [facility] Heart [facility] [address] [facility] [address] [place] [address] Inessa Esteves DO [address] [place], [place] [address] 06/05/2025 12:30 PM CDT Office Visit [facility] Endocr[facility]ology Clinic [address] [phone] Stephie Mahoney MD [address] [place] [address] 251025 11/13/2025 11:00 AM CDT Virtual Visit [facility]ocrinology Clinic [address] [phone] Stephie Mahoney MD [address] 043115 documented as of this encounter Visit Diagnoses Not on filedocumented in this encounter Additional Health Concerns Infection Onset Date Last Indicated Resolved Time Rule Out COVID-19 10/12/2024 10/12/2024 10/12/2024 11:31 AM LAWN MOWER SHARPENER documented as of this encounter Care Teams Maintenance Welder Relationship Specialty [place] [address] [address] [address] PCP - General Family Practice 11/21/16 [place] [address] [address] [address] Assigned PCP 01/30/21 07/11/24 Stephie Mahoney MD [address] [place] [address] 368355 Endocrinology, Diabetes, and Metabolism 04/22/21 Federica Foster RN [address] [place] [address] [id number] Um Specialist Diabetes Education 04/22/21 Tova Welch, RD [address] [place] [address] 272184 Um Specialist Nutrition 04/22/21 Stephie Mahoney MD [address] [place] [address] Assigned Endocrinology Provider 05/08/21 Olga Garcia, RN Specialty Global Risk Management Director INTERNAL MEDICINE - ENDOCRINOLOGY, DIABETES & METABOLISM 09/29/22 Matt Baez MD [address] [facility] [address] [place] 396745 Assigned Heart and Vascular Provider 12/23/22 05/04/23 Junior Chavira MD [address] [place] 675885 Cardiovascular Disease 05/29/24 [place] [address] [place] [address] Assigned PCP 07/12/24 Junior Chavira MD [address] [place] [id number] Assigned Heart and Vascular Provider 08/11/24 Coni Dhaliwal CNP [address] [place] [address] Nurse Practitioner Psychiatry & Neurology Vascular Neurology 11/04/24 Anel Long NP [address] [place] [address] Nurse Practitioner Psychiatry & Neurology Vascular Neurology 11/04/24 Angel Balbuena MD [address] [place] [address] Assigned Heart and Vascular Surgical Provider 12/10/24 documented as of this encounter
--- OUTSIDE RECORDS SUMMARY | 2024-12-12 00:35 | XMS_ITS | Encounter Summary ---
Author Organization [facility] Address [address] [place] [address]. [place] [address] Care Team Providers Care Director Hr Communications Name Role Phone Wilber Vidales MD Primary Care Provider [phone] Wilber Vidales MD Unavailable Stephie Mahoney MD Unavailable Federica Foster RN Unavailable Tova Welch RD Unavailable [phone] Stephie Mahoney MD Unavailable +[phone] Olga Garcia RN Unavailable [phone] Matt Baez MD Unavailable +[phone] Junior Chavira MD Unavailable [phone] Shantel Walker MD Unavailable [phone] Junior Chavira MD Unavailable [phone] Coni Dhaliwal PRODUCTION WORKER Unavailable [phone] Anel Long WIRE MACHINE CUTTER Unavailable [phone] Angel Balbuena MD Unavailable [phone] Encounter Details Date Type Department Care Team (Late st Contact Info) Description 01/16/2023 [facility] G[facility]ology Clinic [address] 4th [place] [address] Dinah Velazquez Social History Tobacco [...] week 06/27/2021 How often do you attend [facility] or episcopalian services? 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 Gender Identity Male 03/03/2019 9:24 [...] Contact Info) Description 12/17/2024 9:30 AM CDT [facility] Laboratory [address] [place] [address] 12/23/2024 4:00 PM CDT [facility] Visit [facility] 65[address] [facility] 450 [place] [phone] Cyrus Aleman MD [address] [place] [address] 01/27/2025 10:00 AM CDT Office Visit [facility] Neurology [facility] [address] [place] [address] 200 [place] [phone] Anel Long WIRE MACHINE CUTTER [address] [facility] [place] [place] [place] 6[address] Coni Dhaliwal, PRODUCTION WORKER 6145 [facility] 450 [place], [place] 938525 04/14/2025 11:15 AM CDT Office Visit [facility] Heart [facility] [address] [facility] [address] [place] [phone] Inessa Esteves DO [address] [facility] [address] [place], [place] [address] 06/05/2025 12:30 PM CDT Office Visit [facility] Endocrinology Clinic [address] [phone] Stephie Mahoney MD [address] [place] [address] 865705 11/13/2025 11:00 AM CDT Virtual Visit [facility] Endocrinology Clinic [address] [phone] Stephie Mahoney MD [address] 362515 documented as of this encounter Visit Diagnoses Not on filedocumented in this encounter Additional Health Concerns Infection Onset Date Last Indicated Resolved Time Rule Out COVID-19 10/12/2024 10/12/2024 10/12/2024 11:31 AM DEBONE PROCESSING SUPERVISOR documented as of this encounter Care Teams Director Hr Communications Relationship Specialty [place] [address] [address] [address] PCP - General Family Practice 11/21/16 [place] [address] [address] [address] Assigned PCP 01/30/21 07/11/24 Stephie Mahoney MD [address] [place] [address] 909445 Endocrinology, Diabetes, and Metabolism 04/22/21 Federica Foster RN 420 [place], [place] [address] Acid Cutter Diabetes Education 04/22/[address] [place] [address] 468524 Acid Cutter Nutrition 04/22/21 Stephie Mahoney MD [address] 513935 Assigned Endocrinology Provider 05/08/21 Olga Garcia, RN Specialty Camp Head Counselor INTERNAL MEDICINE - ENDOCRINOLOGY, DIABETES & METABOLISM 09/29/22 Matt Baez MD [address] [facility] [address] [place] 944775 Assigned Heart and Vascular Provider 12/23/22 05/04/23 Junior Chavira MD [address] [place] 750935 Cardiovascular Disease 05/29/24 [place] [address] [place] [address] Assigned PCP 07/12/24 Junior Chavira MD [address] [place] [address] Assigned Heart and Vascular Provider 08/11/24 Coni Dhaliwal CNP [address] [place] [address] Nurse Practitioner Psychiatry & Neurology Vascular Neurology 11/04/24 Anel Long NP [address] [place] [address] Nurse Practitioner Psychiatry & Neurology Vascular Neurology 11/04/24 Angel Balbuena MD [address] [place] [address] Assigned Heart and Vascular Surgical Provider 12/10/24 documented as of this encounter
--- OUTSIDE RECORDS SUMMARY | 2024-12-12 00:35 | XMS_ITS | Encounter Summary ---
Author Organization [facility] Address [address] [place] [address]. [place] [address] Care Team Providers Care Splicing Supervisor Name Role Phone Wilber Vidales MD Primary Care Provider [phone] Wilber Vidales MD Unavailable Stephie Mahoney MD Unavailable [phone] Federica Foster RN Unavailable Tova Welch RD Unavailable [phone] Stephie Mahoney MD Unavailable +[phone] Olga Garcia RN Unavailable [phone] Matt Baez MD Unavailable +[phone] Junior Chavira MD Unavailable [phone] Shantel Walker MD Unavailable [phone] Junior Chavira MD Unavailable [phone] Coni Dhaliwal ROASTER SUPERVISOR Unavailable [phone] Anel Long CHILD WELFARE SOCIAL WORKER Unavailable [phone] Angel Balbuena MD Unavailable [phone] Encounter Details Date Type Department Care Team (Late st Contact Info) Description 01/24/2023 [facility] Gastroenterology Clinic [address] 4th [place] [address] Dinah Velazquez Social History Tobacco [...] How often do you attend [facility] or anabaptist services? More than 4 times [...] Answer Date Recorded PHQ-2 Score 0 09/29/2022 [facility] [place] of Occupat ional Health - Occupational Stress [...] CDT Legal Sex Male 3:40 AM DIRECTOR INVESTOR RELATIONS Gender Identity Male 03/03/2019 9:24 PM [...] 9:30 AM CDT [facility] Laboratory [address] [place] [address] 12/23/2024 4:00 PM CDT Office Visit [facility] 6545 [facility] 450 [place] [address] Cyrus Aleman MD [address] [place] [address] 01/27/2025 10:00 AM CDT Office Visit [facility] Neurology [facility] [address] [place] [address] 200 [place] [phone] Anel Long CHILD WELFARE SOCIAL WORKER [address] [facility] [place] [place], [place] [address] Coni Dhaliwal, ROASTER SUPERVISOR 6045 [facility] 450 [place], [place] [address] 04/14/2025 11:15 AM CDT Office Visit [facility] Heart [facility] [address] [facility] [address] [place] [phone] Inessa Esteves DO [address] [facility] [address] [place], [place] [address] 06/05/2025 12:30 PM CDT Office Visit [facility] Endocrinology Clinic [address] [phone] Stephie Mahoney MD [address] [place] [address] 462825 11/13/2025 11:00 AM CDT Virtual Visit [facility] Endocrinology Clinic [address] [phone] Stephie Mahoney MD [address] 292965 documented as of this encounter Visit Diagnoses Not on filedocumented in this encounter Additional Health Concerns Infection Onset Date Last Indicated Resolved Time Rule Out COVID-19 10/12/2024 10/12/2024 10/12/2024 11:31 AM DIRECTOR INVESTOR RELATIONS documented as of this encounter Care Teams Splicing Supervisor Relationship Specialty [place] [address] [address] [address] PCP - General Family Practice 11/21/16 [place] [address] [address] [address] Assigned PCP 01/30/21 07/11/24 Stephie Mahoney MD [address] [place] [address] 424135 Endocrinology, Diabetes, and Metabolism 04/22/21 Federica Foster RN 420 [place], [place] 718275 Sheeting Puller Diabetes Education 04/22/[address] [place] [address] 335614 Sheeting Puller Nutrition 04/22/21 Stephie Mahoney MD [address] 424225 Assigned Endocrinology Provider 05/08/21 Olga Garcia, RN Specialty Burglar Alarm Operator INTERNAL MEDICINE - ENDOCRINOLOGY, DIABETES & METABOLISM 09/29/22 Matt Baez MD [address] [facility] [address] [place] 025655 Assigned Heart and Vascular Provider 12/23/22 05/04/23 Junior Chavira MD [address] [place] 190415 Cardiovascular Disease 05/29/24 [place] [address] [place] [address] Assigned PCP 07/12/24 Junior Chavira MD [address] [place] [address] Assigned Heart and Vascular Provider 08/11/24 Coni Dhaliwal CNP [address] [place] [address] Nurse Practitioner Psychiatry & Neurology Vascular Neurology 11/04/24 Anel Long NP [address] [place] [address] Nurse Practitioner Psychiatry & Neurology Vascular Neurology 11/04/24 Angel Balbuena MD [address] [place] [address] Assigned Heart and Vascular Surgical Provider 12/10/24 documented as of this encounter
--- OUTSIDE RECORDS SUMMARY | 2024-12-12 00:35 | XMS_ITS | Encounter Summary ---
Author Organization [place] Address [address] [place] [address]. [place] [address] Care Team Providers Care Managed Care Provider Name Role Phone Wilber Vidales MD Primary Care Provider [phone] Wilber Vidales MD Unavailable Stephie Mahoney MD Unavailable [phone] Federica Foster RN Unavailable Tova Welch RD Unavailable [phone] Stephie Mahoney MD Unavailable [phone] Olga Garcia RN Unavailable [phone] Matt Baez MD Unavailable [phone] Junior Chavira MD Unavailable [phone] Shantel Walker MD Unavailable +[phone] Junior Chavira MD Unavailable [phone] Coni Dhaliwal AEROSPACE TECHNICIAN Unavailable [phone] Anel Long WASH DRILLER HELPER Unavailable [phone] Angel Balbuena MD Unavailable [phone] Encounter Details Date Type Department Care Team (Late st Contact Info) Description 01/24/2023 [facility] [address] [place] [phone] Matt Baez MD [address] [place] [address] Social History Tobacco Use Types Packs/Day Years [...] 06/27/2021 How often do you attend [facility] or roman catholic services? 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 Gender Identity Male 03/03/2019 9:24 PM [...] AM CDT Lab [facility] Laboratory [address] [place] [address] 12/23/2024 4:00 PM CDT Office Visit [facility] [address] [place] [address] 450 [place] [address] Cyrus Aleman MD [address] [place] [address] 01/27/2025 10:00 AM CDT Office Visit [facility] Neurology [facility] [address] [place] [address] 200 [place] [phone] Anel Long, WASH DRILLER HELPER [address] [place], [place] [address] Coni Dhaliwal, AEROSPACE TECHNICIAN [address] [facility] 450 [place], [place] 3324[address] 04/14/2025 11:15 AM CDT Office Visit [facility] Heart [facility] [address]40 [facility] [address] [place] [phone] Inessa Esteves DO [address] [place], [place] [address] 06/05/2025 12:30 PM CDT Office Visit [facility] Endocrinology Clinic [address] [phone] Stephie Mahoney MD [address] [place] [address] 666695 11/13/2025 11:00 AM CDT Virtual Visit [facility] Endocrinology Clinic [address] [phone] Stephie Mahoney MD [address] [place] [address] documented as of this encounter Visit Diagnoses Not on filedocumented in this encounter Additional Health Concerns Infection Onset Date Last Indicated Resolved Time Rule Out COVID-19 10/12/2024 10/12/2024 10/12/2024 11:31 AM [place]MP[place] WRAPPER MAKER documented as of this encounter Care Teams Managed Care Provider Relationship Specialty [place] [address] [place] [address] PCP - General Family Practice 11/21/16 [place] [address] [place] [address] Assigned PCP 01/30/21 07/11/24 Stephie Mahoney MD [address] [place] [address] Endocrinology, Diabetes, and Metabolism 04/22/21 Federica Foster, RN [address] [place] [address] Tank Driver Diabetes Education 04/22/[address] [place] [address] Tank Driver Nutrition 04/22/21 Stephie Mahoney MD [address] [facility] 101 [place] [address] Assigned Endocrinology Provider 05/08/21 Olga Garcia RN Specialty Powder Monkey INTERNAL MEDICINE - ENDOCRINOLOGY, DIABETES & METABOLISM 09/29/22 Matt Baez MD [address] [place] 401695 Assigned Heart and Vascular Provider 12/23/22 05/04/23 Junior Chavira MD [address] [place] 412485 Cardiovascular Disease 05/29/24 [place] [address] [place] [address] Assigned PCP 07/12/24 Junior Chavira MD [address] [place] 864745 Assigned Heart and Vascular Provider 08/11/24 Coni Dhaliwal, AEROSPACE TECHNICIAN [address] [place] 831485 Nurse Practitioner Psychiatry & Neurology Vascular Neurology 11/04/24 Anel Long, WASH DRILLER HELPER [address] [place] 475305 Nurse Practitioner Psychiatry & Neurology Vascular Neurology 11/04/24 Angel Balbuena MD 9 [place] [address] Assigned Heart and Vascular Surgical Provider 12/10/24 documented as of this encounter
--- OUTSIDE RECORDS SUMMARY | 2024-12-12 00:35 | XMS_ITS | Encounter Summary ---
Author Organization [place] Address [address] [place] [address]. [place] [address] Care Team Providers Care Engineering Officer Name Role Phone Wilber Vidales MD Primary Care Provider [phone] Wilber Vidales MD Unavailable Stephie Mahoney MD Unavailable Federica Foster RN Unavailable Tova Welch RD Unavailable [phone] Stephie Mahoney MD Unavailable [phone] Olga Garcia RN Unavailable [phone] Matt Baez MD Unavailable +[phone] Junior Chavira MD Unavailable [phone] Shantel Walker MD Unavailable +[phone] Junior Chavira MD Unavailable [phone] Coni Dhaliwal MACHINE III COREMAKER Unavailable +[phone] Anel Long CHILI PEPPER GRINDER Unavailable [phone] Angel Balbuena MD Unavailable [phone] Encounter Details Date Type Department Care Team (Late st Contact Info) Description 01/16/2023 [facility] Gastro[facility]ology Clinic [address] 4th [place] [address] Dinah Velazquez Social History [...] you attend [facility] or zoroastrian services? More than 4 [...] Date Recorded PHQ-2 Score 0 09/29/2022 [facility] of Occupat ional Health - Occupational Stress [...] a group home (including now)? No 06/27/2021 Education Answer Date Recorded What is the highest level of school you have completed or the highest degree you have received? Bachelor's degree (e.g., BA, AB, BS) 03/17/2019 Sex and Gender Information Value Date Recorded Sex Assigned at Male 06/07/2019 7:29 AM CDT Legal Sex Male 3:40 AM ADMINISTRATIVE TECHNICIAN Gender Identity Male 03/03/2019 9:24 PM [...] Contact Info) Description 12/17/2024 9:30 AM CDT [facility] Laboratory [address] [place] [address] 12/23/2024 4:00 PM CDT Office Visit [facility] 6545 [facility] 450 [place] [address] Cyrus Aleman MD [address] [place] [address] 01/27/2025 10:00 AM CDT Office Visit [facility] Neurology [facility] [address] [place] [address] 200 [place] [phone] Anel Long CHILI PEPPER GRINDER [address] [facility] [place], [place] 9626[address] Coni Dhaliwal, MACHINE III COREMAKER 6045 [facility] 450 [place], [place] [address] 04/14/2025 11:15 AM CDT Office Visit [facility] Heart [facility] [address] [facility] [address] [place] [phone] Inessa Esteves DO 6405 [facility] [address] [place], [place] [address] 06/05/2025 12:30 PM CDT Office Visit [facility] Endocrinology Clinic [address] [phone] Stephie Mahoney MD [address] [place] [address] 237875 11/13/2025 11:00 AM CDT Virtual Visit [facility] Endocrinology Clinic [address] [phone] Stephie Mahoney MD [address] 408775 documented as of this encounter Visit Diagnoses Not on filedocumented in this encounter Additional Health Concerns Infection Onset Date Last Indicated Resolved Time Rule Out COVID-19 10/12/2024 10/12/2024 10/12/2024 11:31 AM ADMINISTRATIVE TECHNICIAN documented as of this encounter Care Teams Engineering Officer Relationship Specialty [place] [address] [address] [address] PCP - General Family Practice 11/21/16 [place] [address] [address] [address] Assigned PCP 01/30/21 07/11/24 Stephie Mahoney MD [address] [place] [address] 757765 Endocrinology, Diabetes, and Metabolism 04/22/21 Federica Foster RN 420 [place], [place] 311905 Mold Maker Plastic Molds Diabetes Education 04/22/[address] [place] [address] 300484 Mold Maker Plastic Molds Nutrition 04/22/21 Stephie Mahoney MD [address] 571515 Assigned Endocrinology Provider 05/08/21 Olga Garcia, RN Specialty Certified Nurse Practitioner INTERNAL MEDICINE - ENDOCRINOLOGY, DIABETES & METABOLISM 09/29/22 Matt Baez MD [address] [facility] [address] [place] 511675 Assigned Heart and Vascular Provider 12/23/22 05/04/23 Junior Chavira MD [address] [place] [id number] Cardiovascular Disease 05/29/24 [place] [address] [place] [address] Assigned PCP 07/12/24 Junior Chavira MD [address] [place] [address] Assigned Heart and Vascular Provider 08/11/24 Coni Dhaliwal CNP [address] [place] [address] Nurse Practitioner Psychiatry & Neurology Vascular Neurology 11/04/24 Anel Logn NP [address] [place] [address] Nurse Practitioner Psychiatry & Neurology Vascular Neurology 11/04/24 Angel Balbuena MD [address] [place] [address] Assigned Heart and Vascular Surgical Provider 12/10/24 documented as of this encounter
--- OUTSIDE RECORDS SUMMARY | 2024-12-12 00:36 | XMS_ITS | Encounter Summary ---
Author Organization [place] Address [address] [place] [address]. [place] [address] Care Team Providers Care Vehicle Assembly Inspector Name Role Phone Wilber Vidales MD Primary Care Provider [phone] Wilber Vidales MD Unavailable Matt Baez MD Unavailable [phone] Wilber Vidales MD Unavailable Wilber Vidales MD Unavailable Stephie Mahoney MD Unavailable [phone] Federica Foster RN Unavailable [phone] Unavailable [phone] Stephie Mahoney MD Unavailable [phone] Olga Garcia RN Unavailable [phone] Matt Baez MD Unavailable Junior Chavira MD Unavailable [phone] Shantel Walker MD Unavailable [phone] Junior Chavira MD Unavailable [phone] Coni Dhaliwal CNP Unavailable [phone] Anel Long NP Unavailable [phone] Angel Balbuena MD Unavailable [phone] Encounter Details Date Type Department Care Team (Late st Contact Info) Description 09/11/2019 MyC Medical Advice [facility] Heart [facility] [address] [facility] [address] [place] [address] Matt Baez MD [address] [facility] [address] [place] [id number] Social History Tobacco Use Types Packs/Day Years [...] and Family Once a week 03/17/2019 Attends [employer] Services More than 4 times per [...] Answer Date Recorded PHQ-2 Score 0 08/27/2018 [facility] [place] of Occupat ional Health - Occupational Stress [...] AM CDT Legal Sex Male 3:40 AM 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 [address] [place] [address] [address] [place] [address] Anel Long, ENGINE INSTALLER [address]80 [place], [place] 243245 Coni Dhaliwal, INTERNATIONAL MARKETING EXECUTIVE [address] [address] 04/14/2025 11:15 AM CDT Office Visit [facility] Heart [facility] [address] [facility] [address] [place] [address] Inessa Esteves [address] [place] [address] 06/05/2025 12:30 PM CDT Office Visit [facility] Endocrinology [address] [phone] Stephie Mahoney MD [address] [place] [address] 11/13/2025 11:00 AM CDT Virtual Visit [facility] Endocrinology [address] [phone] Stephie Mahoney MD [address] [place] [address] documented as of this encounter Visit Diagnoses Not on filedocumented in this encounter Additional Health Concerns Infection Onset Date Last Indicated Resolved Time Rule Out COVID-19 03/10/2022 03/10/2022 03/10/2022 1:37 AM CDT COVID-19 03/10/2022 03/10/2022 03/31/2022 11:3 9 PM CDT Rule Out COVID-19 10/12/2024 10/12/2024 10/12/2024 11:31 AM ATMOSPHERIC TECHNICIAN documented as of this encounter Care Teams Vehicle Assembly Inspector Relationship Specialty [place] [address] [address] [address] PCP - General Family Practice 11/21/16 [place] [address] [address] [address] Assigned PCP 10/31/20 01/29/21 Matt Baez MD [address] [facility] [address] [place] [address] Assigned Heart and Vascular Provider 06/11/20 06/23/22 [place] [address] [place] [address] Assigned PCP 11/02/16 10/30/20 [place] [address] [place] [address] Assigned PCP 01/30/21 07/11/24 Stephie Mahoney MD [address] [place] [address] Endocrinology, Diabetes, and Metabolism 04/22/21 Federica Foster RN [address] [place] [address] Awning Craftsman Diabetes Education 04/22/[address] [place] [address] Awning Craftsman Nutrition 04/22/21 Stephie Mahoney MD [address] [place] [address] 880415 Assigned Endocrinology Provider 05/08/21 Olga Garcia RN Specialty Career Technical Supervisor INTERNAL MEDICINE - ENDOCRINOLOGY, DIABETES & METABOLISM 09/29/22 Matt Baez MD [address] [place] [address] Assigned Heart and Vascular Provider 12/23/22 05/04/23 Junior Chavira MD [address] [place] 6[address]885 Cardiovascular Disease 05/29/24 [place] [address] [place], [place] 5890[address] Assigned PCP 07/12/24 Junior Chavira MD [address] [place] 380915 Assigned Heart and Vascular Provider 08/11/24 Coni Dhaliwal CNP [address] [place] [address] Nurse Practitioner Psychiatry & Neurology Vascular Neurology 11/04/24 Anel Long ENGINE INSTALLER [address] [place], [place] 184[address] Nurse Practitioner Psychiatry & Neurology Vascular Neurology 11/04/24 Angel Balbuena MD [address] [place], [place] [address], [place] [address] Assigned Heart and Vascular Surgical Provider 12/10/24 documented as of this encounter
--- OUTSIDE RECORDS SUMMARY | 2024-12-12 00:36 | XMS_ITS | Encounter Summary ---
Author Organization [place] Address [address] [place] [address]. [place] [address] Care Team Providers Care Senior Java Ui Developer Name Role Phone Wilber Vidales MD Primary Care Provider [phone] Wilber Vidales MD Unavailable Matt Baez MD Unavailable [phone] Wilber Vidales MD Unavailable Wilber Vidales MD Unavailable Stephie Mahoney MD Unavailable [phone] Federica Foster RN Unavailable [phone] Unavailable [phone] Stephie Mahoney MD Unavailable [phone] Olga Garcia RN Unavailable [phone] Matt Baez MD Unavailable Junior Chavira MD Unavailable [phone] Shantel Walker MD Unavailable [phone] Junior Chavira MD Unavailable [phone] Coni Dhaliwal CNP Unavailable [phone] Anel Long NP Unavailable [phone] Angel Balbuena MD Unavailable [phone] Encounter Details Date Type Department Care Team (Late st Contact Info) Description 05/02/[address] [facility] Heart Clinic [place] [address] [facility] [address] [place] [address] Juan Wu MD [address] [facility] [address] [place] [address] Social History Tobacco [...] and Family Once a week 03/17/2019 Attends [employer] More than 4 times per year [...] Answer Date Recorded PHQ-2 Score 0 08/27/2018 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 Neurology [address] [place] [address] Anel Long, ROUSTABOUT SUPERVISOR 9726 [place], [place] [address] Coni Dhaliwal, COREY [address] [address] 04/14/2025 11:15 AM CDT Office Visit [facility] Heart [facility] [address] [facility] [address] [place] [address] Inessa Esteves [address] [place] [address] 06/05/2025 12:30 PM CDT Office Visit [facility] Endocrinology [address] [phone] Stephie Mahoney MD [address] [place] [address] 11/13/2025 11:00 AM CDT Virtual Visit [facility] Endocrinology [address] [phone] Stephie Mahoney MD [address] [place] [address] 907665 documented as of this encounter Visit Diagnoses Not on filedocumented in this encounter Additional Health Concerns Infection Onset Date Last Indicated Resolved Time Rule Out COVID-19 03/10/2022 03/10/2022 03/10/2022 1:37 AM CDT COVID-19 03/10/2022 03/10/2022 03/31/2022 11:3 9 PM CDT Rule Out COVID-19 10/12/2024 10/12/2024 10/12/2024 11:31 AM PEST CONTROLLER ASSISTANT documented as of this encounter Care Teams Senior Java Ui Developer Relationship Specialty [place] [address] [address] [address] PCP - General Family Practice 11/21/16 [place] [address] [address] [address] Assigned PCP 10/31/20 01/29/21 Matt Baez MD [address] [facility] [address] [place] [address] Assigned Heart and Vascular Provider 06/11/20 06/23/22 [place] [address] [place] [address] Assigned PCP 11/02/16 10/30/20 [place] [address] [place] [address] Assigned PCP 01/30/21 07/11/24 Stephie Mahoney MD [address] [place] [address] Endocrinology, Diabetes, and Metabolism 04/22/21 Federica Foster, RN [address] [place] [address] Large Animal Husbandry Technician Diabetes Education 04/22/[address] [place] [address] Large Animal Husbandry Technician Nutrition 04/22/21 Stephie Mahoney MD [address] [place] [address] Assigned Endocrinology Provider 05/08/21 Olga Garcia RN Specialty Rotary Machine Operator INTERNAL MEDICINE - ENDOCRINOLOGY, DIABETES & METABOLISM 09/29/22 Matt Baez MD [address] [place], [place] 24[address]85 Assigned Heart and Vascular Provider 12/23/22 05/04/23 Junior Chavira MD [address] [place] 034925 Cardiovascular Disease 05/29/24 [place] [address] [place], [place] 7931344 Assigned PCP 07/12/24 Junior Chavira MD [address] [place] 3[address]35 Assigned Heart and Vascular Provider 08/11/24 Coni Dhaliwal, COREY [address] [place] 57[address]45 Nurse Practitioner Psychiatry & Neurology Vascular Neurology 11/04/24 Anel Long NP [address] [place], [place] 6634[address] Nurse Practitioner Psychiatry & Neurology Vascular Neurology 11/04/24 Angel Balbuena MD [address] [facility] [place] [place] [address] Assigned Heart and Vascular Surgical Provider 12/10/24 documented as of this encounter
--- OUTSIDE RECORDS SUMMARY | 2024-12-12 00:36 | XMS_ITS | Encounter Summary ---
Author Organization [facility] Address [address] [place] [address]. [place] [address] Care Team Providers Care Paving And Surfacing Labourer Name Role Phone Wilber Vidales MD Primary Care Provider [phone] Wilber Vidales MD Unavailable Matt Baez MD Unavailable [phone] Wilber Vidales MD Unavailable Wilber Vidales MD Unavailable Stephie Mahoney MD Unavailable [phone] Fedreica Foster RN Unavailable [phone] Unavailable [phone] Stephie Mahoney MD Unavailable [phone] Olga Garcia RN Unavailable [phone] Matt Baez MD Unavailable Junior Chavira MD Unavailable [phone] Shantel Walker MD Unavailable [phone] Junior Chavira MD Unavailable [phone] Coni Dhaliwal CNP Unavailable [phone] Anel Long NP Unavailable [phone] Angel Balbuena MD Unavailable [phone] Encounter Details Date Type Department Care Team (Late st Contact Info) Description 05/12/2019 MyC Medical Advice [facility] [address] [place] [address], [address] [place] [address] Denise Hernandez Social History Tobacco [...] and Family Once a week 03/17/2019 Attends [employer] Services More than 4 times per year [...] Answer Date Recorded PHQ-2 Score 0 08/27/2018 [facility] [place] of Occupat ional Health - Occupational Stress [...] AM CDT Legal Sex Male 3:40 AM ALLOY WEIGHER Gender Identity Male 03/03/2019 9:24 PM CDT Sexual Orientation Straight 03/03/2019 9: 24 PM CDT documented as of this encounter Plan of Treatment Upcoming Encounters Date Type Department Care Team (Late st Contact Info) Description 12/17/2024 9:30 AM CDT Lab [facility] Laboratory [address] [place] [address] 12/23/2024 4:00 PM CDT Office Visit [facility] [address] [place] [phone] Cyrus Aleman MD [address] [place] [address] 607715 01/27/2025 10:00 AM CDT Office Visit [facility] Neurology Clinic [place] [address] [place] [address] 200 [place] [phone] Anel Long NP 5645 [place], [place] [address] Coni Dhaliwal, COREY [address] [address] 04/14/2025 11:15 AM CDT Office Visit [facility] Heart [facility] [address] [facility] [address] [place] [address] Inessa Esteves DO [address] [place] [address] [place] [address] 06/05/2025 12:30 PM CDT Office Visit [facility] Endocrinology [address] [phone] Stephie Mahoney MD [address] [place] [address] 566645 11/13/2025 11:00 AM CDT Virtual Visit [facility] Endocrinology [address] [phone] Stephie Mahoney MD [address] [place] [address] 535285 documented as of this encounter Visit Diagnoses Not on filedocumented in this encounter Additional Health Concerns Infection Onset Date Last Indicated Resolved Time Rule Out COVID-19 03/10/2022 03/10/2022 03/10/2022 1:37 AM CDT COVID-19 03/10/2022 03/10/2022 03/31/2022 11:3 9 PM CDT Rule Out COVID-19 10/12/2024 10/12/2024 10/12/2024 11:31 AM ALLOY WEIGHER documented as of this encounter Care Teams Paving And Surfacing Labourer Relationship Specialty [place] [address] [address] [address] PCP - General Family Practice 11/21/16 [place] [address] [address] [address] Assigned PCP 10/31/20 01/29/21 Matt Baez MD [address] [place] [address] Assigned Heart and Vascular Provider 06/11/20 06/23/22 [place] [address] [place] [address] Assigned PCP 11/02/16 10/30/20 [place] [address] [place] [place], [place] 94250[address] Assigned PCP 01/30/21 07/11/24 Stephie Mahoney MD [address] [place] [address] Endocrinology, Diabetes, and Metabolism 04/22/21 Federica Foster RN [address] [place] [address] [phone] Motorcoach Operator Diabetes Education 04/22/[address] [place] [address] Motorcoach Operator Nutrition 04/22/21 Stephie Mahoney MD [address] [place] [address] Assigned Endocrinology Provider 05/08/21 Olga Garcia RN Specialty Airframe Technical Officer INTERNAL MEDICINE - ENDOCRINOLOGY, DIABETES & METABOLISM 09/29/22 Matt Baez MD [address] [place] [address] Assigned Heart and Vascular Provider 12/23/22 05/04/23 Junior Chavira MD [address] [place] [phone] Cardiovascular Disease 05/29/24 [place] [address] [place] [address] Assigned PCP 07/12/24 Junior Chavira MD [address] [place] 2279[address] Assigned Heart and Vascular Provider 08/11/24 Coni Dhaliwal CNP [address] [place] 323[address] Nurse Practitioner Psychiatry & Neurology Vascular Neurology 11/04/24 Anel Long NP [address] [place] 447[address] Nurse Practitioner Psychiatry & Neurology Vascular Neurology 11/04/24 Angel Balbuena MD [address] [place], [place] [address] [address] Assigned Heart and Vascular Surgical Provider 12/10/24 documented as of this encounter
--- OUTSIDE RECORDS SUMMARY | 2024-12-12 00:36 | XMS_ITS | Encounter Summary ---
Author Organization [place] Address [address] [place] [address]. [place] [address] Care Team Providers Care Cut Off Saw Operator Metal Name Role Phone Wilber Vidales MD Primary [...] Unavailable [phone] Anel Long NP Unavailable [phone] Angel Balbuena MD Unavailable [phone] Encounter Details Date Type Department Care Team (Late st Contact Info) Description 08/19/2019 MyC Medical Advice [facility] [place] [address] [facility] [address] [place] [address] Ivonne Hussein, ASHOK HEAD MACHINIST 1700 [place] [address] Social History Tobacco Use Types Packs/Day Years [...] 0 08/27/2018 [facility] [place] of Occupat ional Health - Occupational Stress [...] AM CDT 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 [address] [place] [phone] 12/23/2024 4:00 PM CDT Office Visit [facility] [address] [place] [phone] Cyrus [place]man MD [address] [place] [address] [phone] 01/27/2025 10:00 AM CDT Office Visit [facility] Neurology [address] 200 [place] [address] Anel Long, DIGITAL STRATEGY MANAGER 7861 [place], [place] [address] Coni Dhaliwal, HEAD MACHINIST [address] [address] 04/14/2025 11:15 AM CDT Office Visit [facility] Heart [facility] [address] [facility] [address] [place] [address] Inessa Esteves DO [address] [place] [address] 06/05/2025 12:30 PM CDT Office Visit [facility] Endocrinology [address] [phone] Stephie Mahoney MD [address] [place] [address] 11/13/2025 11:00 AM CDT Virtual Visit [facility] Endocrinology [address] [phone] Stephie Mahoney MD [address] [place] [address] 805855 documented as of this encounter Visit Diagnoses Not on filedocumented in this encounter Additional Health Concerns Infection Onset Date Last Indicated Resolved Time Rule Out COVID-19 03/10/2022 03/10/2022 03/10/2022 1:37 AM CDT COVID-19 03/10/2022 03/10/2022 03/31/2022 11:3 9 PM CDT Rule Out COVID-19 10/12/2024 10/12/2024 10/12/2024 11:31 AM MULTIPLE SLIDE OPERATOR documented as of this encounter Care Teams Cut Off Saw Operator Metal Relationship Specialty [place] [address] [address] [address] PCP - General Family Practice 11/21/16 [place] [address] [address] [address] Assigned PCP 10/31/20 01/29/21 Matt Baez MD [address] [facility] [address] [place] [address] Assigned Heart and Vascular Provider 06/11/20 06/23/22 [place] [address] [place] [address] Assigned PCP 11/02/16 10/30/20 [place] [address] [place] [address] Assigned PCP 01/30/21 07/11/24 Stephie Mahoney MD [address] [place] [address] Endocrinology, Diabetes, and Metabolism 04/22/21 Federica Foster RN [address] [place] [address] Relay Dispatcher Diabetes Education 04/22/[address] [place] [address] Relay Dispatcher Nutrition 04/22/21 Stephie Mahoney MD [address] [place] [address] Assigned Endocrinology Provider 05/08/21 Olga Garcia RN Specialty Chain Builder Loom Control INTERNAL MEDICINE - ENDOCRINOLOGY, DIABETES & METABOLISM 09/29/22 Matt Baez MD [address] [place], [place] [address] Assigned Heart and Vascular Provider 12/23/22 05/04/23 Junior Chavira MD [address] [place] 244[address] Cardiovascular Disease 05/29/24 [place] [address] [address] [place], [place] 7[address]30[address] Assigned PCP 07/12/24 Junior Chavira MD [address] [place] 25[address]65 Assigned Heart and Vascular Provider 08/11/24 Coni Dhaliwal, COREY [address] [place], [place] 49[address] Nurse Practitioner Psychiatry & Neurology Vascular Neurology 11/04/24 Anel Long NP [address] [place], [place] 6[address] Nurse Practitioner Psychiatry & Neurology Vascular Neurology 11/04/24 Angel Balbuena MD [address] [place], [place] [address]V[place], [place] [address] Assigned Heart and Vascular Surgical Provider 12/10/24 documented as of this encounter
--- OUTSIDE RECORDS SUMMARY | 2024-12-12 00:36 | XMS_ITS | Encounter Summary ---
Author Organization [facility] Address [address] [place] [address]. [place] [address] Care Team Providers Care Rocket Scientist Name Role Phone Wilber Vidales MD Primary Care Provider [phone] Wilber Vidales MD Unavailable Matt Baez MD Unavailable [phone] Wilber Vidales MD Unavailable Wilber Vidales MD Unavailable Stephie Mahoney MD Unavailable [phone] Federica Foster RN Unavailable +[phone] Unavailable [phone] Stephie Mahoney MD Unavailable +[phone] Olga Garcia RN Unavailable +[phone] Matt Baez MD Unavailable Junior Chavira MD Unavailable [phone] Shantel Walker MD Unavailable +[phone] Junior Chavira MD Unavailable [phone] Coni Dhaliwal CNP Unavailable [phone] Anel Long NP Unavailable [phone] Angel Balbuena MD Unavailable [phone] Encounter Details Date Type Department Care Team (Late st Contact Info) Description 09/12/2019 MyC Medical Advice [facility] [address] [place] [address] Matt Baez MD [address] [facility] [address] [place] [id number] Social History Tobacco Use Types Packs/Day Years [...] and Family Once a week 03/17/2019 Attends Muslim Services More than 4 times per year [...] Answer Date Recorded PHQ-2 Score 0 08/27/2018 [facility] [place] of Occupat ional Health - Occupational Stress [...] AM CDT Legal Sex Male 3:40 AM 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 Gender Identity Male 03/03/2019 9:24 PM CDT Sexual Orientation Straight 03/03/2019 9: 24 PM CDT documented as of this encounter Plan of Treatment Upcoming Encounters Date Type Department Care Team (Late st Contact Info) Description 12/17/2024 9:30 AM CDT Lab [facility] [address] [place] [phone] 12/23/2024 4:00 PM CDT Office Visit [address] [phone] Cyrus Aleman MD [address] [place] [address] 01/27/2025 10:00 AM CDT Office Visit [facility] Neurology [facility] [address] [place] [address] [address] [place] [address] Anel Long, SUPERVISOR PIPE JOINTS 8392 [place], [place] 89[address] Coni Dhaliwal, NEUROSURGERY RESEARCH DIRECTOR [address] [address] 04/14/2025 11:15 AM CDT Office Visit [facility] [address] [place] [address] Inessa Esteves [address] [place] [address] 06/05/2025 12:30 PM CDT Office Visit [facility] Endocrinology [address] [phone] Stephie Mahoney MD [address] [place] [address] 11/13/2025 11:00 AM CDT Virtual Visit [facility] Endocrinology [address] [phone] Stephie Mahoney MD [address] [place] [address] documented as of this encounter Visit Diagnoses Not on filedocumented in this encounter Additional Health Concerns Infection Onset Date Last Indicated Resolved Time Rule Out COVID-19 03/10/2022 03/10/2022 03/10/2022 1:37 AM CDT COVID-19 03/10/2022 03/10/2022 03/31/2022 11:3 9 PM CDT Rule Out COVID-19 10/12/2024 10/12/2024 10/12/2024 11:31 AM PRODUCTION ASSEMBLER documented as of this encounter Care Teams Rocket Scientist Relationship Specialty [place] [address] [address] [address] PCP - General Family Practice 11/21/16 [place] [address] [address] [address] Assigned PCP 10/31/20 01/29/21 Matt Baez MD [address] [facility] [address] [place] [address] Assigned Heart and Vascular Provider 06/11/20 06/23/22 [place] [address] [address] [address] Assigned PCP 11/02/16 10/30/20 [place] [address] [place] [address] Assigned PCP 01/30/21 07/11/24 Stephie Mahoney MD [address] [place] [address] Endocrinology, Diabetes, and Metabolism 04/22/21 Federica Foster RN [address] [place] [address] Online Advertising Analyst Diabetes Education 04/22/[address] [place] [address] Online Advertising Analyst Nutrition 04/22/21 Stephie Mahoney MD [address] [place] [address] 424935 Assigned Endocrinology Provider 05/08/21 Olga Garcia RN Specialty Community Health Advisor INTERNAL MEDICINE - ENDOCRINOLOGY, DIABETES & METABOLISM 09/29/22 Matt Baez MD [address] [place] [address] Assigned Heart and Vascular Provider 12/23/22 05/04/23 Junior Chavira MD [address] [place] 6[address]75 Cardiovascular Disease 05/29/24 [place] [address] [address] [place], [place] [address] Assigned PCP 07/12/24 Junior Chavira MD [address] [place] 152525 Assigned Heart and Vascular Provider 08/11/24 Coni Dhaliwal CNP [address] [place] [address] Nurse Practitioner Psychiatry & Neurology Vascular Neurology 11/04/24 Anel Long SUPERVISOR PIPE JOINTS [address] [place], [place] [address] Nurse Practitioner Psychiatry & Neurology Vascular Neurology 11/04/24 Angel Balbuena MD [address] [place], [place] [address], [place] 41[address] Assigned Heart and Vascular Surgical Provider 12/10/24 documented as of this encounter
--- OUTSIDE RECORDS SUMMARY | 2024-12-12 00:36 | XMS_ITS | Encounter Summary ---
Author Organization [facility] Address [address] [place] [address]. [place] [address] Care Team Providers Care Point Of Care Technician Name Role Phone Wilber Vidales MD Primary Care Provider [phone] Wilber Vidales MD Unavailable Wilber Vidales MD Unavailable Matt Baez MD Unavailable [phone] Wilber Vidales MD Unavailable Wilber Vidales MD Unavailable Stephie Mahoney MD Unavailable [phone] Federica Foster RN Unavailable +[phone] Unavailable [phone] Stephie Mahoney MD Unavailable [phone] Olga Garcia RN Unavailable +[phone] Matt Baez MD Unavailable [phone] Junior Chavira MD Unavailable [phone] Shantel Walker MD Unavailable [phone] Junior Chavira MD Unavailable [phone] Coni Dhaliwal CNP Unavailable +[phone] Darby[place]anca Anel Barry MONTANEZ Unavailable [phone] Angel Balbuena MD Unavailable [phone] Reason for Visit * Reason Onset Date Comments Medication Request 08/15/2018 Sildenafil 50 mg Encounter Details Date Type Department Care Team (Late st Contact Info) Description 08/15/2018 MyC Medical Advice [address], [address] [place] [address] [place] [address] [place], [place] [phone] Medication Request (Sildenafil 50mg) Social History Tobacco Use Types Packs/Day Years Used Date Smoking Tobacco: Never Smokeless Tobacco: Never Alcohol Use Standard Drinks/Week Comments Yes 0 (1 standard drink = 0.6 oz pur e alcohol) 2/week Sex and Gender Information Value Date Recorded Sex Assigned at Male 06/07/2019 7:29 AM CDT Legal Sex Male 3:40 AM CONTRACTING SPECIALIST Gender Identity Male 03/03/2019 9:24 PM CDT Sexual Orientation Straight 03/03/2019 9: 24 PM CDT documented as of this encounter Miscellaneous Notes * Telephone Encounter - Padmini Jin - 08/16/2018 1:39 PM CST Rx picked up by pt. Bustos RACTING SPECIALIST documented in this encounter Plan of Treatment Upcoming Encounters Date Type Department Care Team (Late st Contact Info) Description 12/17/2024 9:30 AM CDT Lab [facility] [address] [place] [address] 12/23/2024 4:00 PM CDT Office Visit [address] [place] [phone] Cyrus Aleman MD [address] [place], [place] [address] 01/27/2025 10:00 AM CDT Office Visit [facility] [address] [place] [phone] Anel Long, ASSISTANT ART DIRECTOR [address] [place] [address] Coni Dhaliwal, CIRCUS TRAIN SUPERVISOR [address] [place] [address]25 04/14/2025 11:15 AM CDT Office Visit [facility] [address] [facility] [address] [place] [phone] Inessa Esteves DO [address] [place] [address] 06/05/2025 12:30 PM CDT Office Visit [facility] Endocrinology [address] [phone] Stephie Mahoney MD [address] [place] [address] 942115 11/13/2025 11:00 AM CDT Virtual Visit [facility] [address] [phone] Stephie Mahoney MD [address] [place] [address] [phone] documented as of this encounter Visit Diagnoses Diagnosis Erectile dysfunction, unspecified erectile dysfunction type documented in this encounter Additional Health Concerns Infection Onset Date Last Indicated Resolved Time Rule Out COVID-19 03/10/2022 03/10/2022 03/10/2022 1:37 AM CDT COVID-19 03/10/2022 03/10/2022 03/31/2022 11:3 9 PM CDT Rule Out COVID10/12/2024 10/12/2024 10/12/2024 11:31 AM CONTRACTING SPECIALIST documented as of this encounter Care Teams Point Of Care Technician Relationship Specialty [place] [address] [address] [address] PCP - General Family Practice 11/21/16 [place] [address] [address] [address] PCP - Assigned PCP 11/02/16 10/22/18 [place] [address] [address] [address] Assigned PCP 10/31/20 01/29/21 Matt Baez MD [address] [place] [address] Assigned Heart and Vascular Provider 06/11/20 06/23/22 [place] [address] [address] [address] Assigned PCP 11/02/16 10/30/20 [place] [address] [address] [address] Assigned PCP 01/30/21 07/11/24 Stephie Mahoney MD [address] [place] [address] Endocrinology, Diabetes, and Metabolism 04/22/21 Federica Foster, RN 420 [place] [address] Completion Engineer Diabetes Education 04/22/[address] [place], [place] 6[address] Completion Engineer Nutrition 04/22/21 Stephie Mahoney MD [address] [facility] [address] [place], [place] [address] Assigned Endocrinology Provider 05/08/21 Olga Garcia, RN Specialty Superintendent Stations INTERNAL MEDICINE - ENDOCRINOLOGY, DIABETES & METABOLISM 09/29/22 Matt Baez MD [address] [place], [place] [address] Assigned Heart and Vascular Provider 12/23/22 05/04/23 Junior Chavira MD [address] [place], [place] 214[address] Cardiovascular Disease 05/29/24 [place] [address] [place] [place] 9969[address] Assigned PCP 07/12/24 Junior Chavira MD [address] [place], [place] 509[address] Assigned Heart and Vascular Provider 08/11/24 Coni Dhaliwal, CIRCUS TRAIN SUPERVISOR [address] [place], [place] [address] Nurse Practitioner Psychiatry & Neurology Vascular Neurology 11/04/24 Anel Long, ASSISTANT ART DIRECTOR [address]45 [facility] [place] [address] Nurse Practitioner Psychiatry & Neurology Vascular Neurology 11/04/24 Angel Balbuena MD [address] [place] [address] Assigned Heart and Vascular Surgical Provider 12/10/24 documented as of this encounter
--- OUTSIDE RECORDS SUMMARY | 2024-12-12 00:36 | XMS_ITS | Encounter Summary ---
Author Organization [facility] Address [address] [place] [address]. [place] [address] Care Team Providers Care Hvac Engineering Technician Name Role Phone Wilber Vidales MD Primary Care Provider [phone] Wilber Vidales MD Unavailable Matt Baez MD Unavailable [phone] Wilber Vidales MD Unavailable Wilber Vidales MD Unavailable Stephie Mahoney MD Unavailable [phone] Federica Foster RN Unavailable [phone] Unavailable [phone] Stephie Mahoney MD Unavailable +[phone] Olga Garcia RN Unavailable +[phone] Matt Baez MD Unavailable Junior Chavira MD Unavailable [phone] Shantel Walker MD Unavailable +[phone] Junior Chavira MD Unavailable [phone] Coni Dhaliwal CNP Unavailable [phone] Anel Long NP Unavailable [phone] Angel Balbuena MD Unavailable Encounter Details Date Type Department Care Team (Late st Contact Info) Description 05/11/2019 MyC Medical Advice [facility] [address] [facility] [address] [place] [address] Nehemiah Plummer MD [address] [facility] [address] [place] [phone] Social History Tobacco Use Types Packs/Day Years [...] and Family Once a week 03/17/2019 Attends [facility] Services More than 4 times per year [...] Answer Date Recorded PHQ-2 Score 0 08/27/2018 [facility] [place] of Occupat ional Health - Occupational Stress [...] AM CDT 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 [address] [place] [phone] 12/23/2024 4:00 PM CDT Office Visit [address] [phone] Cyrus Aleman MD [address] [place] [address] 035095 01/27/2025 10:00 AM CDT Office Visit [facility] Neu[facility] [address] [place] [address] 200 [place] [address] Anel Long, ASPHALT SPREADER 1062 [place], [place] [address] Coni Dhaliwal, DIE CASTER [address] [address] 04/14/2025 11:15 AM CDT Office Visit [facility] [address] [facility] [address] [place] [address] Inessa Esteves [address] [place] [address] 06/05/2025 12:30 PM CDT Office Visit [facility] Endocrinology [address] [phone] Stephie Mahoney MD [address] [place] [address] 11/13/2025 11:00 AM CDT Virtual Visit [facility] End[facility] [address] [phone] Stephie Mahoney MD [address] [place] [address] documented as of this encounter Visit Diagnoses Not on filedocumented in this encounter Additional Health Concerns Infection Onset Date Last Indicated Resolved Time Rule Out COVID-19 03/10/2022 03/10/2022 03/10/2022 1:37 AM CDT COVID-19 03/10/2022 03/10/2022 03/31/2022 11:3 9 PM CDT Rule Out COVID-19 10/12/2024 10/12/2024 10/12/2024 11:31 AM TRENCH DIGGER documented as of this encounter Care Teams Hvac Engineering Technician Relationship Specialty [place] [address] [address] [address] PCP - General Family Practice 11/21/16 [place] [address] [address] [address] Assigned PCP 10/31/20 01/29/21 Matt Baez MD [address] [facility] [address] [place] [address] Assigned Heart and Vascular Provider 06/11/20 06/23/22 [place] [address] [address] [place] [address] Assigned PCP 11/02/16 10/30/20 [place] [address] [place] [address] Assigned PCP 01/30/21 07/11/24 Stephie Mahoney MD [address] [place] [address] Endocrinology, Diabetes, and Metabolism 04/22/21 Federica Foster RN [address] [place] [address] Stenciler Diabetes Education 04/22/[address] [place] [address] Stenciler Nutrition 04/22/21 Stephie Mahoney MD [address] [place] [address] 629855 Assigned Endocrinology Provider 05/08/21 Olga Garcia RN Specialty Technical Expert INTERNAL MEDICINE - ENDOCRINOLOGY, DIABETES & METABOLISM 09/29/22 Matt Baez MD [address] [place] [address] Assigned Heart and Vascular Provider 12/23/22 05/04/23 Junior Chavira MD [address] [place] 56[address] Cardiovascular Disease 05/29/24 [place] [address] [address] [place], [place] 7087[address] Assigned PCP 07/12/24 Junior Chavira MD [address] [place] 507935 Assigned Heart and Vascular Provider 08/11/24 Coni Dhaliwal CNP [address] [place] 74[address]75 Nurse Practitioner Psychiatry & Neurology Vascular Neurology 11/04/24 Anel Long ASPHALT SPREADER [address] [place], [place] 5[address] Nurse Practitioner Psychiatry & Neurology Vascular Neurology 11/04/24 Angel Balbuena MD [address] [place], [place] [address], [place] [address] Assigned Heart and Vascular Surgical Provider 12/10/24 documented as of this encounter
--- OUTSIDE RECORDS SUMMARY | 2024-12-12 00:37 | XMS_ITS | Encounter Summary ---
Author Organization [facility] Address [address] [place] [address]. [place] [address] Care Team Providers Care Rn Obgyn Name Role Phone Wilber Vidales MD Primary Care Provider [phone] Matt Baez MD Unavailable Wilber Vidales MD Unavailable Stephie Mahoney MD Unavailable Federica Foster RN Unavailable Tova Welch RD Unavailable Stephie Mahoney MD Unavailable Olga Garcia RN Unavailable [phone] Matt Baez MD Unavailable +[phone] Junior Chavira MD Unavailable [phone] Shantel Walker MD Unavailable +[phone] Junior Chavira MD Unavailable [phone] Coni Dhaliwal CNP Unavailable [phone] Anel Long NP Unavailable [phone] Angel Balbuena MD Unavailable [phone] Encounter Details Date Type Department Care Team (Late st Contact Info) Description 04/04/2021 MyC Medical Advice [facility] [address] [facility] [address] [place] [address] [address] [place] [address] Social History Tobacco Use Types Packs/Day Years [...] and Family Once a week 03/17/2019 Attends [employer]oroast[employer] Services More than 4 times per year [...] Answer Date Recorded PHQ-2 Score 0 03/21/2021 [facility] [place] of Occupat ional Health - Occupational Stress [...] AM CDT Legal Sex Male 3:40 AM SYSTEM SUPPORT TECHNICIAN Gender Identity Male 03/03/2019 9:24 PM [...] Description 12/17/2024 9:30 AM CDT Lab [facility] [address] [place] [address] 12/23/2024 4:00 PM CDT Office Visit [address] [address] Cyrus Aleman MD [address] [place] [address] 01/27/2025 10:00 AM CDT Office Visit [facility] [address] [place] [phone] Anel Long, HOUSEHOLD APPLIANCES SERVICE TECHNICIAN [address] [place] [address] Coni Dhaliwal, STRINGER MACHINE TENDER [address] [place] [address]75 04/14/2025 11:15 AM CDT Office Visit [facility] [address] [place] [address] [address] [place] [phone] Inessa Esteves, [address] [place] [address]65 06/05/2025 12:30 PM CDT Office Visit [facility] [address] [phone] Stephie Mahoney MD [address] [place] [address] 300165 11/13/2025 11:00 AM CDT Virtual Visit [facility] [address] [phone] Stephie Mahoney MD [address] [place] [address] 956845 documented as of this encounter Visit Diagnoses Not on filedocumented in this encounter Additional Health Concerns Infection Onset Date Last Indicated Resolved Time Rule Out COVID-19 03/10/2022 03/10/2022 03/10/2022 1:37 AM CDT COVID-19 03/10/2022 03/10/2022 03/31/2022 11:3 9 PM CDT Rule Out COVID-19 10/12/2024 10/12/2024 10/12/2024 11:31 AM SYSTEM SUPPORT TECHNICIAN documented as of this encounter Care Teams Rn Obgyn Relationship Specialty [place] [address] [place] [address] PCP - General Family Practice 11/21/16 Matt Baez MD [address] [facility] [address] [place] [address] Assigned Heart and Vascular Provider 06/11/20 06/23/22 [place] [address] [place] [address] Assigned PCP 01/30/21 07/11/24 Stephie Mahoney MD [address] [place] [address] Endocrinology, Diabetes, and Metabolism 04/22/21 Federica Foster RN [address] [place] [address] Assembly Line Inspector Diabetes Education 04/22/[address] [place] [address] Assembly Line Inspector Nutrition 04/22/21 Stephie Mahoney MD [address] [place] [address] 740775 Assigned Endocrinology Provider 05/08/21 Olga Garcia RN Specialty Supervisor Remelt INTERNAL MEDICINE - ENDOCRINOLOGY, DIABETES & METABOLISM 09/29/22 Matt Baez MD [address] [place] [address] Assigned Heart and Vascular Provider 12/23/22 05/04/23 Junior Chavira MD [address] [place] 417285 Cardiovascular Disease 05/29/24 [place] [address] [address] [place], [place] 4[address] Assigned PCP 07/12/24 Junior Chavira MD [address] [place] 502605 Assigned Heart and Vascular Provider 08/11/24 Coni Dhaliwal CNP [address] [place] 409295 Nurse Practitioner Psychiatry & Neurology Vascular Neurology 11/04/24 Anel Logn HOUSEHOLD APPLIANCES SERVICE TECHNICIAN [address] [place], [place] [address] Nurse Practitioner Psychiatry & Neurology Vascular Neurology 11/04/24 Angel Balbuena MD [address] [place], [place] [address], [place] [address] Assigned Heart and Vascular Surgical Provider 12/10/24 documented as of this encounter
--- OUTSIDE RECORDS SUMMARY | 2024-12-12 00:37 | XMS_ITS ---
Author Organization [facility] Address [address] [place] [address]. [place] [address] Care Team Providers Care Security Systems Technician Name Role Phone Wilber Vidales MD Primary Care Provider [phone] Stephie Mahoney MD Unavailable [phone] Federica Foster RN Unavailable [phone] Unavailable [phone] Stephie Mahoney MD Unavailable [phone] Olga Garcia RN Unavailable [phone] Junior Chavira MD Unavailable +[phone] Shantel Walker MD Unavailable +[phone] Junior Chavira MD Unavailable [phone] Coni Dhaliwal GAME ARTIST Unavailable [phone] Anel Long NP Unavailable [phone] Angel Balbuena MD Unavailable [phone] Transitional Care Management Status:Closed (Closed) Start date:11/05/2024 Enrollment date:11/06/2024 End date:11/19/2024 Close reason:Goals met Continued Care and Services Coordination
--- OUTSIDE RECORDS SUMMARY | 2024-12-12 00:37 | XMS_ITS | Encounter Summary ---
Author Organization [facility] Address [address] [place] [address]. [place] [address] Care Team Providers Care Central Services Tech Name Role Phone Wilber Vidales MD Primary [...] Unavailable [phone] Anel Long NP Unavailable [phone] Angel Balbuena MD Unavailable [phone] Reason for Visit * Reason Onset Date Comments Medication Question 10/21/2020 Encounter Details Date Type Department Care Team (Late st Contact Info) Description 10/21/2020 MyC Medical Advice [facility] [address] [place] [phone] [place] [address] [place] [address] Medication Question Social History Tobacco [...] and Family Once a week 03/17/2019 Attends [employer] Services More than 4 times per year [...] Date Recorded PHQ-2 Score 0 08/27/2018 [facility] [place] of Occupat ional Health - Occupational Stress [...] CDT Legal Sex Male 3:40 AM SENIOR OFFICE SUPPORT ASSISTANT SOSA Gender Identity Male 03/03/2019 9:24 PM CDT Sexual Orientation Straight 03/03/2019 9: 24 PM CDT documented as of this encounter Plan of Treatment Upcoming Encounters Date Type Department Care Team (Late st Contact Info) Description 12/17/2024 9:30 AM CDT Lab [facility] Laboratory [address] [place] [phone] 12/23/2024 4:00 PM CDT Office Visit [address] [phone] Cyrus Aleman MD [address] [place] [address] 381055 01/27/2025 10:00 AM CDT Office Visit [facility] Neurology [address] [phone] Anel Long, VICE PRESIDENT OF PROCUREMENT [address] [place], [place] [address] Coni Dhaliwal, EXTRUSION DIE REPAIRER [address] [place] [address] 04/14/2025 11:15 AM CDT Office Visit [facility] Heart [facility] [address] [facility] [address] [place] [phone] LeroyInessa wesleyDO [address] [place] [address]75 06/05/2025 12:30 PM CDT Office Visit [facility] Endocrinology [address] [phone] Stephie Mahoney MD [address] [place] [address] 043275 11/13/2025 11:00 AM CDT Virtual Visit [facility] Endocrinology [address] [phone] Stephie Mahoney MD [address] [phone] documented as of this encounter Visit Diagnoses Not on filedocumented in this encounter Additional Health Concerns Infection Onset Date Last Indicated Resolved Time Rule Out COVID-19 03/10/2022 03/10/2022 03/10/2022 1:37 AM CDT COVID-19 03/10/2022 03/10/2022 03/31/2022 11:3 9 PM CDT Rule Out COVID-19 10/12/2024 10/12/2024 10/12/2024 11:31 AM SENIOR OFFICE SUPPORT ASSISTANT SOSA documented as of this encounter Care Teams Central Services Tech Relationship Specialty [place] [address] [address] [place] [address] PCP - General Family Practice 11/21/16 [place] [address] [place] [address] Assigned PCP 10/31/20 01/29/21 Matt Baez MD [address] [place] [address] Assigned Heart and Vascular Provider 06/11/20 06/23/22 [place] [address] [place] [address] Assigned PCP 11/02/16 10/30/20 [place] [address] [place] [address] Assigned PCP 01/30/21 07/11/24 Stephie Mahoney MD [address] [address] Endocrinology, Diabetes, and Metabolism 04/22/21 Federica Foster, RN [address] [place] [address] Debit Agent Diabetes Education 04/22/[address] [place] [address] Debit Agent Nutrition 04/22/21 Stephie Mahoney MD [address] [place] [address] Assigned Endocrinology Provider 05/08/21 Olga Garcia, RN Specialty Fuel Dock Attendant INTERNAL MEDICINE - ENDOCRINOLOGY, DIABETES & METABOLISM 09/29/22 Matt Baez MD [address] [place] 4[address]25 Assigned Heart and Vascular Provider 12/23/22 05/04/23 Junior Chavira MD [address] [place] 0[address]75 Cardiovascular Disease 05/29/24 [place] [address] [place] [address] Assigned PCP 07/12/24 Junior Chavira MD [address] [place] 533055 Assigned Heart and Vascular Provider 08/11/24 Coni Dhaliwal CNP [address] [place] 6[address]15 Nurse Practitioner Psychiatry & Neurology Vascular Neurology 11/04/24 Anel Long NP [address] [place] [address] Nurse Practitioner Psychiatry & Neurology Vascular Neurology 11/04/24 Angel Balbuena MD [address] [place], [place] [address] Assigned Heart and Vascular Surgical Provider 12/10/24 documented as of this encounter
--- OUTSIDE RECORDS SUMMARY | 2024-12-12 00:37 | XMS_ITS | Encounter Summary ---
Author Organization [facility] Address [address] [place] [address]. [place] [address] Care Team Providers Care Script Developer Name Role Phone Wilber Vidales MD Primary Care Provider [phone] Wilber Vidales MD Unavailable Matt Baez MD Unavailable [phone] Wilber Vidales MD Unavailable Wilber Vidales MD Unavailable Stephie Mahoney MD Unavailable [phone] Federica Foster RN Unavailable [phone] Unavailable [phone] Stephie Mahoney MD Unavailable [phone] Olga Garcia RN Unavailable [phone] Matt Baez MD Unavailable Junior Chavira MD Unavailable [phone] Shantel Walker MD Unavailable [phone] Junior Chavira MD Unavailable [phone] Coni Dhaliwal CNP Unavailable [phone] Anel Long NP Unavailable [phone] Angel Balbuena MD Unavailable [phone] Encounter Details Date Type Department Care Team (Late st Contact Info) Description 05/01/2019 MyC Medical Advice [facility] Heart [facility] [address] [facility] [address] [place] [address] Nehemiah Plummer MD [address] [facility] [address] [place] [phone] Social History Tobacco Use Types Packs/Day Years [...] Answer Date Recorded PHQ-2 Score 0 08/27/2018 [facility] [place] of Occupat ional Health - Occupational Stress [...] AM CDT 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 Gender Identity Male 03/03/2019 9:24 PM CDT Sexual Orientation Straight 03/03/2019 9: 24 PM CDT documented as of this encounter Plan of Treatment Upcoming Encounters Date Type Department Care Team (Late st Contact Info) Description 12/17/2024 9:30 AM CDT Lab [facility] Laboratory [address] [place] [phone] 12/23/2024 4:00 PM CDT Office Visit [address] [phone] Cyrus Aleman MD [address] [place] [address] 801785 01/27/2025 10:00 AM CDT Office Visit [facility] Neurology [facility] [address] [place] [address] 200 [place] [address] Anel Long, AGILE TESTER 6055 [place], [place] 0[address] Coni Dhaliwal, GENERAL MAGISTRATE [address] [address] 04/14/2025 11:15 AM CDT Office Visit [facility] Heart [facility] [address] [facility] [address] [place] [address] Inessa Esteves [address] [place] [address] 06/05/2025 12:30 PM CDT Office Visit [facility] Endocrinology [address] [phone] Stephie Mahoney MD [address] [place] [address] 11/13/2025 11:00 AM CDT Virtual Visit [facility] Endocrinology [address] [phone] Stephie Mahoney MD [address] [place] [address] documented as of this encounter Visit Diagnoses Not on filedocumented in this encounter Additional Health Concerns Infection Onset Date Last Indicated Resolved Time Rule Out COVID-19 03/10/2022 03/10/2022 03/10/2022 1:37 AM CDT COVID-19 03/10/2022 03/10/2022 03/31/2022 11:3 9 PM CDT Rule Out COVID-19 10/12/2024 10/12/2024 10/12/2024 11:31 AM HIGH SCHOOL BAND DIRECTOR documented as of this encounter Care Teams Script Developer Relationship Specialty [place] [address] [address] [place] [address] PCP - General Family Practice 11/21/16 [place] [address] [place] [place] [address] Assigned PCP 10/31/20 01/29/21 Matt Baez MD [address] [facility] [address] [place] [address] Assigned Heart and Vascular Provider 06/11/20 06/23/22 [place] [address] [address] [address] Assigned PCP 11/02/16 10/30/20 [place] [address] [place] [address] Assigned PCP 01/30/21 07/11/24 Stephie Mahoney MD [address] [place] [address] Endocrinology, Diabetes, and Metabolism 04/22/21 Federica Foster RN [address] [place] [address] Welding Supervisor Diabetes Education 04/22/[address] [place] [address] Welding Supervisor Nutrition 04/22/21 Stephie Mahoney MD [address] [place] [address] 156215 Assigned Endocrinology Provider 05/08/21 Olga Garcia RN Specialty Well Blower INTERNAL MEDICINE - ENDOCRINOLOGY, DIABETES & METABOLISM 09/29/22 Matt Baez MD [address] [place] [address] Assigned Heart and Vascular Provider 12/23/22 05/04/23 Junior Chavira MD [address] [place] [address]415 Cardiovascular Disease 05/29/24 [place] [address] [place], [place] [address] Assigned PCP 07/12/24 Junior Chavira MD [address] [place] 387885 Assigned Heart and Vascular Provider 08/11/24 Coni Dhaliwal CNP [address] [place] [address]55 Nurse Practitioner Psychiatry & Neurology Vascular Neurology 11/04/24 Anel Long AGILE TESTER [address] [place], [place] [address] Nurse Practitioner Psychiatry & Neurology Vascular Neurology 11/04/24 Angel Balbuena MD [address] [place], [place] [address] [place], [place] 40[address] Assigned Heart and Vascular Surgical Provider 12/10/24 documented as of this encounter
--- OUTSIDE RECORDS SUMMARY | 2024-12-12 00:37 | XMS_ITS | Encounter Summary ---
Author Organization [facility] Address [address] [place] [address]. [place] [address] Care Team Providers Care Young Adult Librarian Name Role Phone Wilber Vidales MD Primary Care Provider [phone] Wilber Vidales MD Unavailable Stephie Mahoney MD Unavailable [phone] Federica Foster RN Unavailable Tova Welch RD Unavailable [phone] Stephie Mahoney MD Unavailable [phone] Olga Garcia RN Unavailable [phone] Matt Baez MD Unavailable [phone] Junior Chavira MD Unavailable [phone] Shantel Walker MD Unavailable [phone] Junior Chavira MD Unavailable [phone] Coni Dhaliwal LEATHER GOODS MAKER Unavailable [phone] Anel Long METER INSPECTOR Unavailable [phone] Angel Balbuena MD Unavailable [phone] Encounter Details Date Type Department Care Team (Late st Contact Info) Description 07/04/2022 MyC Medical Advice [facility] [address] [place] [address] [place] [address] [place] [address] Social History Tobacco Use Types [...] Answer Date Recorded PHQ-2 Score 0 04/14/2022 [facility] of Occupat ional Health - Occupational [...] AM CDT Legal Sex Male 3:40 AM 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 Gender Identity Male 03/03/2019 9:24 PM CDT Sexual Orientation Straight 03/03/2019 9: 24 PM CDT documented as of this encounter Plan of Treatment Upcoming Encounters Date Type Department Care Team (Late st Contact Info) Description 12/17/2024 9:30 AM CDT [address] [address] 12/23/2024 4:00 PM CDT Office Visit [facility] [address] [facility] [address] [place] [phone] Cyrus Aleman MD [address] [place] [address] 01/27/2025 10:00 AM CDT Office Visit [facility] Neurology [facility] [address] [place] [address] [address] [place] [phone] Anel Long, METER INSPECTOR [address] [place], [place] [address] Coni Dhaliwal, LEATHER GOODS MAKER [address] [facility] 450 [place], [place] [address] 04/14/2025 11:15 AM CDT Office Visit [facility] Heart [facility] [address] [facility] [address] [place] [phone] Inessa Esteves, [address] [place], [place] [address] 06/05/2025 12:30 PM CDT Office Visit [facility] Endocrinology Clinic [address] [phone] Stephie Mahoney MD [address] [place] [address] 816155 11/13/2025 11:00 AM CDT Virtual Visit [facility] Endocrinology [address] [phone] Stephie Mahoney MD [address] [place] [address] 377925 documented as of this encounter Visit Diagnoses Not on filedocumented in this encounter Additional Health Concerns Infection Onset Date Last Indicated Resolved Time Rule Out COVID-19 10/12/2024 10/12/2024 10/12/2024 11:31 AM TEXTILE SCREEN MAKER documented as of this encounter Care Teams Young Adult Librarian Relationship Specialty [place] [address] [address] [address] PCP - General Family Practice 11/21/16 [place] [address] [address] [address] Assigned PCP 01/30/21 07/11/24 Stephie Mahoney MD [address] [place] [address] Endocrinology, Diabetes, and Metabolism 04/22/21 Federica Foster RN [address] [place] [address] [phone] Shearing Shed Hand Diabetes Education 04/22/[address] [place] [address] Shearing Shed Hand Nutrition 04/22/21 Stephie Mahoney MD [address] [place] [address] Assigned Endocrinology Provider 05/08/21 Olga Garcia, RN Specialty Private Chef INTERNAL MEDICINE - ENDOCRINOLOGY, DIABETES & METABOLISM 09/29/22 Matt Baez MD [address] [facility] [address] [place] [address] Assigned Heart and Vascular Provider 12/23/22 05/04/23 Junior Chavira MD [address] [place] 953115 Cardiovascular Disease 05/29/24 [place] [address] [place] [address] Assigned PCP 07/12/24 Junior Chavira MD [address] [place] 541465 Assigned Heart and Vascular Provider 08/11/24 Coni Dhaliwal CNP [address] [place] [address]355 Nurse Practitioner Psychiatry & Neurology Vascular Neurology 11/04/24 Anel Long NP [address] [place] 60[address]65 Nurse Practitioner Psychiatry & Neurology Vascular Neurology 11/04/24 Angel Balbuena MD 909 [place], [place] 065265 Assigned Heart and Vascular Surgical Provider 12/10/24 documented as of this encounter
--- OUTSIDE RECORDS SUMMARY | 2024-12-12 00:37 | XMS_ITS | Encounter Summary ---
Author Organization [facility] Address [address] [place] [address]. [place] [address] Care Team Providers Care Prestressed Concrete Laborer Name Role Phone Wilber Vidales MD Primary Care Provider [phone] Wilber Vidales MD Unavailable Stephie Mahoney MD Unavailable [phone] Federica Foster RN Unavailable Tova Welch RD Unavailable [phone] Stephie Mahoney MD Unavailable [phone] Olga Garcia RN Unavailable [phone] Matt Baez MD Unavailable [phone] Junior Chavira MD Unavailable [phone] Shantel Walker MD Unavailable [phone] Junior Chavira MD Unavailable [phone] Coni Dhaliwal MOTOR BUILDER WINDER Unavailable [phone] Anel Long MODEL MAKER Unavailable [phone] Angel Balbuena MD Unavailable [phone] Encounter Details Date Type Department Care Team (Late st Contact Info) Description 10/11/2022 MyC Medical [facility] Endocrinology Clinic [address] 3rd [place] [address] Stephie Mahoney MD 420 [facility] 101 [place], [place] 47[address] Social History Tobacco Use Types Packs/Day Years [...] 06/27/2021 How often do you attend [facility] or adventist services? More than 4 times [...] Answer Date Recorded PHQ-2 Score 0 09/29/2022 [facility] of Occupat ional Health - Occupational [...] AM CDT Legal Sex Male 3:40 AM CLINIC LPN Gender Identity Male 03/03/2019 9:24 PM CDT Sexual Orientation Straight 03/03/2019 9: 24 PM CDT COVID-19 Exposure Response Date Recorded In the last 10 days, have yo u been in contact with someone who was confirmed or suspected to have Coronavirus/COVID-19? No / Unsure 10/13/2022 11:29 AM CLINIC LPN documented as of this encounter Plan of Treatment Upcoming Encounters Date Type Department Care Team (Late st Contact Info) Description 12/17/2024 9:30 AM CDT Lab [facility] Laboratory [address] [place] [phone] 12/23/2024 4:00 PM CDT Office Visit [facility] 6545 [facility] 450 [place] [phone] Cyrus Aleman MD [address] [place] [address] 796955 01/27/2025 10:00 AM CDT Office Visit [facility] Neurology [address] 200 [place] [phone] Anel Long, MODEL MAKER [address] [place], [place] [address] Coni Dhaliwal, MOTOR BUILDER WINDER [address] [facility] 450 [place], [place] [address] 04/14/2025 11:15 AM CDT Office Visit [facility] Heart [facility] [address] [facility] [address] [place] [phone] Inessa Esteves DO [address] [place], [place] [address] 06/05/2025 12:30 PM CDT Office Visit [facility] Endocrinology Clinic [address]rd [place] [phone] Stephie Mahoney MD [address] [place] [address] 101 [place], [place] 414015 11/13/2025 11:00 AM CDT Virtual Visit [facility] Endocrinology [address] [place] [phone] Stephie Mahoney MD [address] [place] [address] documented as of this encounter Visit Diagnoses Not on filedocumented in this encounter Additional Health Concerns Infection Onset Date Last Indicated Resolved Time Rule Out COVID-19 10/12/2024 10/12/2024 10/12/2024 11:31 AM CLINIC LPN documented as of this encounter Care Teams Prestressed Concrete Laborer Relationship Specialty [place] [address] [facility] [place] [address] PCP - General Family Practice 11/21/16 [place] [address] [place] [address] Assigned PCP 01/30/21 07/11/24 Stephie Mahoney MD [address] [place] [address] Endocrinology, Diabetes, and Metabolism 04/22/21 Federica Foster, RN [address] [place] [address] Photographer Scientific Diabetes Education 04/22/[address] [place] [address] Photographer Scientific Nutrition 04/22/21 Stephie Mahoney MD [address] [place] [address] Assigned Endocrinology Provider 05/08/21 Olga Garcia RN Specialty Sample Carrier INTERNAL MEDICINE - ENDOCRINOLOGY, DIABETES & METABOLISM 09/29/22 Matt Baez MD [address] [place], [place] 69[address] Assigned Heart and Vascular Provider 12/23/22 05/04/23 Junior Chavira MD [address] [place] 8[address]955 Cardiovascular Disease 05/29/24 [place] [address] [address] [place], [place] 4528144 Assigned PCP 07/12/24 Junior hCavira MD [address] [place] [address]25 Assigned Heart and Vascular Provider 08/11/24 Coni Dhaliwal, COREY [address] [place] 86[address]75 Nurse Practitioner Psychiatry & Neurology Vascular Neurology 11/04/24 Anel Long NP [address] [place], [place] 9464[address] Nurse Practitioner Psychiatry & Neurology Vascular Neurology 11/04/24 Angel Balbuena MD 909 [facility] [place], [place] [address] Assigned Heart and Vascular Surgical Provider 12/10/24 documented as of this encounter
--- OUTSIDE RECORDS SUMMARY | 2024-12-12 00:37 | XMS_ITS | Encounter Summary ---
Author Organization [facility] Address [address] [place] [address]. [place] [address] Care Team Providers Care Energy Scheduler Name Role Phone Wilber Vidales MD Primary Care Provider [phone] Matt Baez MD Unavailable Wilber Vidales MD Unavailable Stephie Mahoney MD Unavailable Federica Foster RN Unavailable Tova Welch RD Unavailable [phone] Stephie Mahoney MD Unavailable Olga Garcia RN Unavailable [phone] Matt Baez MD Unavailable [phone] Junior Chavira MD Unavailable [phone] Shantel Walker MD Unavailable [phone] Junior Chavira MD Unavailable [phone] Coni Dhaliwal CNP Unavailable [phone] Anel Long NP Unavailable [phone] Angel Balbuena MD Unavailable [phone] Encounter Details Date Type Department Care Team (Late st Contact Info) Description 03/21/2021 MyC Medical Advice [facility] [address] [place] [address] Juana Hernandez PA-C [facility] [address] [address] [place] [address] Social History Tobacco Use Types Packs/Day Years [...] Answer Date Recorded PHQ-2 Score 0 03/21/2021 [facility] of Occupat ional [...] AM CDT 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 [address] [place] [address] 12/23/2024 4:00 PM CDT Office Visit [place] [address] [place] [phone] Cyrus Aleman MD 90 [place], [place] 521395 01/27/2025 10:00 AM CDT Office Visit [facility] Neurology Clinic [address] [phone] Anel Long, LINE DIRECTOR 38[address] [facility] [address] [place] 542675 Coni Dhaliwal, SCHOOL AGE TEACHER [address] [place] 837395 04/14/2025 11:15 AM CDT Office Visit [facility] Heart [facility] [address] [facility] [address] [place] [phone] Inessa Esteves DO [address] [place] [address] 06/05/2025 12:30 PM CDT Office Visit [facility] Endocrinology [address] [phone] Stephie Mhaoney MD [address] [place] [address] 428085 11/13/2025 11:00 AM CDT Virtual Visit [facility] Endocrinology [address] [phone] Stephie Mahoney MD [address] [place] [address] 625245 documented as of this encounter Visit Diagnoses Not on filedocumented in this encounter Additional Health Concerns Infection Onset Date Last Indicated Resolved Time Rule Out COVID-19 03/10/2022 03/10/2022 03/10/2022 1:37 AM CDT COVID-19 03/10/2022 03/10/2022 03/31/2022 11:3 9 PM CDT Rule Out COVID-19 10/12/2024 10/12/2024 10/12/2024 11:31 AM FIELD CROPS HARVEST MACHINE OPERATOR documented as of this encounter Care Teams Energy Scheduler Relationship Specialty [place] [address] [address] [address] PCP - General Family Practice 11/21/16 Matt Baez MD [address] [place] 963375 Assigned Heart and Vascular Provider 06/11/20 06/23/22 [place] [address] [place] [address] Assigned PCP 01/30/21 07/11/24 Stephie Mahoney MD [address] [place] [address] 124175 Endocrinology, Diabetes, and Metabolism 04/22/21 Federica Foster, RN [address] [place] [address] 289265 Director Rehabilitation Program Diabetes Education 04/22/[address] [place] [address] 737324 Director Rehabilitation Program Nutrition 04/22/21 Stephie Mahoney MD [address] [place] [address] 483825 Assigned Endocrinology Provider 05/08/21 Olga Garcia, RN Specialty Distribution Center Supervisor INTERNAL MEDICINE - ENDOCRINOLOGY, DIABETES & METABOLISM 09/29/22 Matt Baez MD [address] [place] 617185 Assigned Heart and Vascular Provider 12/23/22 05/04/23 Junior Chavira MD [address] [place] 384015 Cardiovascular Disease 05/29/24 [place] [address] [place] [address] Assigned PCP 07/12/24 Junior Chavira MD [address] [place], [place] [address] Assigned Heart and Vascular Provider 08/11/24 Coni Dhaliwal CNP [address] [place] 386845 Nurse Practitioner Psychiatry & Neurology Vascular Neurology 11/04/24 Anel Long NP [address] [place] [place] [address] Nurse Practitioner Psychiatry & Neurology Vascular Neurology 11/04/24 Angel Balbuena MD [address] [place], [place] 657035 Assigned Heart and Vascular Surgical Provider 12/10/24 documented as of this encounter
--- OUTSIDE RECORDS SUMMARY | 2024-12-12 00:38 | XMS_ITS | Encounter Summary ---
Author Organization [place] Address [address] [place] [address]. [place] [address] Care Team Providers Care Marketing Designer Name Role Phone Wilber Vidales MD Primary Care Provider [phone] Wilber Vidales MD Unavailable Matt Baez MD Unavailable [phone] Wilber Vidales MD Unavailable Wilber Vidales MD Unavailable Stephie Mahoney MD Unavailable [phone] Federica Foster RN Unavailable [phone] Unavailable [phone] Stephie Mahoney MD Unavailable [phone] Olga Garcia RN Unavailable [phone] Matt Baez MD Unavailable Junior Chavira MD Unavailable [phone] Shantel Walker MD Unavailable [phone] Junior Chavira MD Unavailable [phone] Coni Dhaliwal CNP Unavailable [phone] Anel Long NP Unavailable [phone] Angel Balbuena MD Unavailable [phone] Encounter Details Date Type Department Care Team (Late st Contact Info) Description 01/05/2020 MyC Medical Advice [facility] [address] [facility] [address] [place] [address] Arielle Adams, [...] Answer Date Recorded PHQ-2 Score 0 08/27/2018 [facility] [place] of Occupat ional Health - Occupational Stress [...] AM CDT 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 Neurology [address] [phone] Anel Long, RIG OPERATOR [address] [place], [place] [address] Coni Dhaliwal, HUMAN RESOURCES PSYCHOLOGIST [address] [place] [address] 04/14/2025 11:15 AM CDT Office Visit [facility] Heart [facility] [address] [facility] [address] [place] [phone] YungvannesaInessa DO [address] [place] [address] 06/05/2025 12:30 PM CDT Office Visit [facility] Endocrinology [address] [phone] Stephie Mahoney MD [address] [place] [address] 167625 11/13/2025 11:00 AM CDT Virtual Visit [facility] Endocrinology [address] [phone] Stephie Mahoney MD [address] [place] [address] 202475 documented as of this encounter Visit Diagnoses Not on filedocumented in this encounter Additional Health Concerns Infection Onset Date Last Indicated Resolved Time Rule Out COVID-19 03/10/2022 03/10/2022 03/10/2022 1:37 AM CDT COVID-19 03/10/2022 03/10/2022 03/31/2022 11:3 9 PM CDT Rule Out COVID-19 10/12/2024 10/12/2024 10/12/2024 11:31 AM SCREWDOWN OPERATOR documented as of this encounter Care Teams Marketing Designer Relationship Specialty [place] [address] [address] [place] [address] PCP - General Family Practice 11/21/16 [place] [address] [place] [address] Assigned PCP 10/31/20 01/29/21 Matt Baez MD [address] [place] [address] Assigned Heart and Vascular Provider 06/11/20 06/23/22 [place] [address] [place] [address] Assigned PCP 11/02/16 10/30/20 [place] [address] [place] [address] Assigned PCP 01/30/21 07/11/24 Stephie Mahoney MD [address] 007825 Endocrinology, Diabetes, and Metabolism 04/22/21 Federica Foster, RN [address] [place] [address] 948745 Manager General Diabetes Education 04/22/[address] [place] [address] Manager General Nutrition 04/22/21 Stephie Mahoney MD [address] [place] [address] Assigned Endocrinology Provider 05/08/21 Olga Garcia, RN Specialty Hammer Repairer INTERNAL MEDICINE - ENDOCRINOLOGY, DIABETES & METABOLISM 09/29/22 Matt Baez MD [address] [place] 678525 Assigned Heart and Vascular Provider 12/23/22 05/04/23 Junior Chavira MD [address] [place] 494[address] Cardiovascular Disease 05/29/24 [place] [address] [place], [place] [phone] Assigned PCP 07/12/24 Junior Chavira MD [address] [place] [address] Assigned Heart and Vascular Provider 08/11/24 Coni Dhaliwal CNP [address] [place] [address] Nurse Practitioner Psychiatry & Neurology Vascular Neurology 11/04/24 Anel Long NP [address] [place] [address] Nurse Practitioner Psychiatry & Neurology Vascular Neurology 11/04/24 Angel Balbuena MD [address] [place], [place] 7[address] Assigned Heart and Vascular Surgical Provider 12/10/24 documented as of this encounter
--- OUTSIDE RECORDS SUMMARY | 2024-12-12 00:38 | XMS_ITS | Clinical Summary ---
Author Organization [facility] Address [address] [place] [address] Care Team Providers Care Production Quality Manager Name Role Phone Lisandra Osborne MD, Ty Primary Care Provider [phone] Allergies Active Allergy Reactions Criticality Noted Date [...] Department Care Team Description 11/04/2024 Transcribe Orders [address] [address] Finn Monroe DO 09/23/2024 Lab Requisition [facility] [address] [place] [address] [place] [address] [facility] Immunizations Immunization Administration [...] on file Legal Sex Male 6:17 AM DOOR SERVICEMAN Gender Identity Not on file Sexual Orientation [...] WITH AUTO DIFFERENTIAL Routine 09/23/2024 12:38 PM DOOR SERVICEMAN Encounter for therapeutic drug level monitoring Localization-relate d (focal) (partial) symptomatic epilepsy and epileptic syndromes with complex partial seizures, intractable, with status epilepticus (HC) LAMOTRIGINE (LAMICTAL) Routine 09/23/2024 12:38 PM DOOR SERVICEMAN Encounter for therapeutic drug level monitoring Localization-relate d (focal) (partial) symptomatic epilepsy and epileptic syndromes with complex partial seizures, intractable, with status epilepticus (HC) CBC WITH AUTO DIFFERENTIAL Routine 09/23/2024 12:38 PM DOOR SERVICEMAN Encounter for therapeutic drug level monitoring Localization-relate d (focal) (partial) symptomatic epilepsy and epileptic syndromes with complex partial seizures, intractable, with status epilepticus (HC) BASIC METABOLIC PANEL Routine 09/23/2024 12:38 PM DOOR SERVICEMAN Encounter for therapeutic drug level monitoring Localization-relate d (focal) (partial) symptomatic epilepsy and epileptic syndromes with complex partial seizures, intractable, with status epilepticus (HC) AST (SGOT) Routine 09/23/2024 12:38 PM DOOR SERVICEMAN Encounter for therapeutic drug level monitoring Localization-relate d (focal) (partial) symptomatic epilepsy and epileptic syndromes with complex partial seizures, intractable, with status epilepticus (HC) from Last 3 Months Results * (ABNORMAL) CBC WITH AUTO DIFFERENTIAL (09/23/2024 12:38 PM DOOR SERVICEMAN) WHITE BLOOD COUNT 4.9 4.5 - 11.0 thou/cu mm 09/23/2024 12:49 PM DOOR SERVICEMAN [facility] RED BLOOD COUNT 4.79 4.30 - 5.90 mil/cu mm 09/23/2024 12:49 PM [facility] HEMOGLOBIN 14.5 13.5 - 17.5 g/dL 09/23/2024 12:49 PM [facility] HEMATOCRIT 41.6 37.0 - 53.0 % 09/23/2024 12:49 PM [facility] MCV 87 80 - 100 fL 09/23/2024 12:49 PM [facility] MCH 30.3 26.0 - 34.0 pg 09/23/2024 12:49 PM [facility] MCHC 34.9 32.0 - 36.0 g/dL 09/23/2024 12:49 PM [facility] RDW 11.9 11.5 - 15.5 % 09/23/2024 12:49 PM [facility] PLATELET COUNT 160 140 - 440 thou/cu mm 09/23/2024 12:49 PM [facility] MPV 11.0 6.5 - 11.0 fL 09/23/2024 12:49 PM [facility] % NEUT 52.2 % 09/23/2024 12:49 PM DOOR SERVICEMAN [facility] % LYMPH 28.7 % 09/23/2024 12:49 PM DOOR SERVICEMAN [facility] % MONO 7.2 % 09/23/2024 12:49 PM DOOR SERVICEMAN [facility] % EOS 11.5 % 09/23/2024 12:49 PM DOOR SERVICEMAN [facility] % BASO 0.4 % 09/23/2024 12:49 PM DOOR SERVICEMAN [facility] ABSOLUTE NEUTROPHILS 2.5 1.7 - 7.0 thou/cu mm 09/23/2024 12:49 PM DOOR SERVICEMAN [facility] ABSOLUTE LYMPHOCYTES 1.4 0.9 - 2.9 thou/cu mm 09/23/2024 12:49 PM DOOR SERVICEMAN [facility] ABSOLUTE MONOCYTES 0.4 <0.9 thou/cu mm 09/23/2024 12:49 PM DOOR SERVICEMAN [facility] ABSOLUTE EOSINOPHILS 0.6(H) <0.5 thou/cu mm 09/23/2024 12:49 PM DOOR SERVICEMAN [facility] ABSOLUTE BASOPHILS 0.0 <0.3 thou/cu mm 09/23/2024 12:49 PM DOOR SERVICEMAN [facility] Blood BLOOD SPECIMEN / Unknown Venipuncture / Unknown 09/23/2024 12:38 PM DOOR SERVICEMAN 09/23/2024 12:38 PM DOOR SERVICEMAN Chris Ph[facility] HEMATOLOGY Final Re sult [facility] [address] [place] [address] * LAMOTRIGINE (LAMICTAL) (09/23/2024 12:38 PM DOOR SERVICEMAN) Pathologist [facility] LAMOTRIGINE 7.1 3.0 - 15.0 ug/mL 09/23/2024 3:43 PM DOOR SERVICEMAN [facility] Blood BLOOD SPECIMEN / Unknown Venipuncture / Unknown 09/23/2024 12:38 PM DOOR SERVICEMAN 09/23/2024 12:38 PM DOOR SERVICEMAN Narrative [facility] - 09/23/2024 3:43 PM DOOR SERVICEMAN The target steady state range for seizure control is 3-15 ug/mL. Concentrations that exceed 15 ug/mL may contribute to adverse effects.Patient response varies widely, particularly with co-medications and/or compromised renal function. Chris Ph[facility] SEND OUTS Final Re sult [facility] [address] [place] [address], * AST (SGOT) (09/23/2024 12:38 PM DOOR SERVICEMAN) AST (SGOT) 20 10 - 50 IU/L 09/23/2024 1:02 PM DOOR SERVICEMAN [facility] Blood BLOOD SPECIMEN / Unknown Venipuncture / Unknown 09/23/2024 12:38 PM DOOR SERVICEMAN 09/23/2024 12:38 PM DOOR SERVICEMAN Chris Whitfield kimber [facility] CHEMISTRY Final Re sult Performing Organization Address [facility] Co de Phone Number [facility] [address] [place] [address] * (ABNORMAL) BASIC METABOLIC PANEL (09/23/2024 12:38 PM DOOR SERVICEMAN) SODIUM 137 136 - 145 mmol/L 09/23/2024 1:02 PM DOOR SERVICEMAN [facility] POTASSIUM 4.1 3.5 - 5.1 mmol/L 09/23/2024 1:02 PM [facility] CHLORIDE 97(L) 98 - 107 mmol/L 09/23/2024 1:02 PM DOOR SERVICEMAN [facility] CO2,TOTAL 33(H) 22 - 29 mmol/L 09/23/2024 1:02 PM DOOR SERVICEMAN [facility] ANION GAP 7 5 - 18 09/23/2024 1:02 PM DOOR SERVICEMAN [facility] GLUCOSE 95 70 - 99 mg/dL 09/23/2024 1:02 PM DOOR SERVICEMAN [facility] CALCIUM 9.0 8.8 - 10.4 mg/dL 09/23/2024 1:02 PM DOOR SERVICEMAN [facility] Comment: Reference ranges for this test were updated on 06/24/2024 to reflect our healthy population more accurately. Reference range changes are not retroactively applied to results, but previous results using the same methodology can be interpreted in the context of the new reference range. BUN 18 8 - 23 mg/dL 09/23/2024 1:02 PM [facility] CREATININE 0.80 0.70 - 1.20 mg/dL 09/23/2024 1:02 PM [facility] BUN/CREAT RATIO 23(H) 10 - 20 1:02 PM [facility] eGFR >90 >90 mL/min/1.7 3m2 09/23/2024 1:02 PM [facility] Comment:As of 2021, eG FR is calculated by the CKD-EPI creatinine equation without race adjustment. eGFR can be influenced by muscle mass, exercise, and diet. The reported eGFR is an estimation only and is only applicable if the renal function is stable. Blood BLOOD SPECIMEN / Unknown Venipuncture / Unknown 09/23/2024 12:38 PM DOOR SERVICEMAN 09/23/2024 12:38 PM DOOR SERVICEMAN [facility] CHEMISTRY Final Re sult [facility] [address] [place] [address] from Last 3 Months Insurance [facility] Care Teams Production Quality Manager Relationship Specialty [place] [address] [place] [address] PCP - General 07/23/05
--- OUTSIDE RECORDS SUMMARY | 2024-12-12 00:38 | XMS_ITS | Encounter Summary ---
Author Organization [place] Address [address] [place] [address]. [place] [address] Care Team Providers Care Mattress And Foundation Sewer Name Role Phone Wilber Vidales MD Primary Care Provider [phone] Wilber Vidales MD Unavailable Matt Baez MD Unavailable [phone] Wilber Vidales MD Unavailable Wilber Vidales MD Unavailable Stephie Mahoney MD Unavailable [phone] Federica Foster RN Unavailable [phone] Unavailable [phone] Stephie Mahoney MD Unavailable [phone] Olga Garcia RN Unavailable [phone] Matt Baez MD Unavailable Junior Chavira MD Unavailable [phone] Shantel Walker MD Unavailable [phone] Junior Chavira MD Unavailable [phone] Coni Dhaliwal CNP Unavailable [phone] Anel Long NP Unavailable [phone] Angel Balbuena MD Unavailable [phone] Encounter Details Date Type Department Care Team (Late st Contact Info) Description 07/16/2019 MyC Medical Advice [facility] Cardiothoracic [address] [place] [address] Ej Haines MD [address] [facility] [address] [place] [address] Social History Tobacco Use Types [...] Score 0 08/27/2018 [facility] [place] of Occupat ional Health - Occupational Stress [...] AM CDT 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 Gender Identity Male 03/03/2019 9:24 PM CDT Sexual Orientation Straight 03/03/2019 9: 24 PM CDT documented as of this encounter Plan of Treatment Upcoming Encounters Date Type Department Care Team (Late st Contact Info) Description 12/17/2024 9:30 AM CDT Lab [facility] [address] [place] [phone] 12/23/2024 4:00 PM CDT Office Visit [address] [phone] Cyrus Aleman MD [address] [place] [address] 035755 01/27/2025 10:00 AM CDT Office Visit [facility] Neurology [address] [place] [phone] Anel Long, DIGITAL IMAGING TECHNICIAN [address] [place], [place] [address]15[address] Coni Dhaliwal, COREY [address] 044875 04/14/2025 11:15 AM CDT Office Visit [facility] Heart [facility] [address] [facility] [address] [place] [phone] LeroyreesevannesaEliazarInessasergio FunesDO [address] [place] [address] 06/05/2025 12:30 PM CDT Office Visit [facility] Endocrinology [address] [place] [phone] Stephie Mahoney MD [address] [place] [address] 113025 11/13/2025 11:00 AM CDT Virtual Visit [facility] Endocrinology [address] [phone] Stephie Mahoney MD [address] [place] [address] 702475 documented as of this encounter Visit Diagnoses Not on filedocumented in this encounter Additional Health Concerns Infection Onset Date Last Indicated Resolved Time Rule Out COVID-19 03/10/2022 03/10/2022 03/10/2022 1:37 AM CDT COVID-19 03/10/2022 03/10/2022 03/31/2022 11:3 9 PM CDT Rule Out COVID-19 10/12/2024 10/12/2024 10/12/2024 11:31 AM SPRAY GUN STRIPER documented as of this encounter Care Teams Mattress And Foundation Sewer Relationship Specialty [place] [address] [place] [address] PCP - General Family Practice 11/21/16 [place] [address] [place] [address] Assigned PCP 10/31/20 01/29/21 Matt Baez MD [address] [facility] [address] [place] [address] Assigned Heart and Vascular Provider 06/11/20 06/23/22 [place] [address] [place] [address] Assigned PCP 11/02/16 10/30/20 [place] [address] [place] [address] Assigned PCP 01/30/21 07/11/24 Stephie Mahoney MD [address] [place] [address] Endocrinology, Diabetes, and Metabolism 04/22/21 Federica Foster RN [address] [place] [address] Wire Stripping Machine Operator Diabetes Education 04/22/[address] [place] [address] Wire Stripping Machine Operator Nutrition 04/22/21 Stephie Mahoney MD [address] [place] [address] Assigned Endocrinology Provider 05/08/21 Olga Garcia RN Specialty Apprentice Electrician INTERNAL MEDICINE - ENDOCRINOLOGY, DIABETES & METABOLISM 09/29/22 Matt Baez MD [address] [place] [address] Assigned Heart and Vascular Provider 12/23/22 05/04/23 Junior Chavira MD [address] [place] 9[address]65 Cardiovascular Disease 05/29/24 [place] [address] [place] [address] Assigned PCP 07/12/24 Junior Chavira MD [address] [place] [address] Assigned Heart and Vascular Provider 08/11/24 Coni Dhaliwal CNP [address] [place] [address] Nurse Practitioner Psychiatry & Neurology Vascular Neurology 11/04/24 Anel Long NP [address] [place] [address] Nurse Practitioner Psychiatry & Neurology Vascular Neurology 11/04/24 Angel Balbuena MD [address] [facility] [facility] [place], [place] [address] Assigned Heart and Vascular Surgical Provider 12/10/24 documented as of this encounter
--- OUTSIDE RECORDS SUMMARY | 2024-12-12 00:38 | XMS_ITS | Encounter Summary ---
Author Organization [facility] Address [address] [place] [address]. [place] [address] Care Team Providers Care Director Of Student Life Name Role Phone Wilber Vidales MD Primary Care Provider [phone] Stephie Mahoney MD Unavailable [phone] Federica Foster RN Unavailable [phone] Unavailable Stephie Mahoney MD Unavailable [phone] Olga Garcia RN Unavailable [phone] Junior Chavira MD Unavailable [phone] Shantel Walker MD Unavailable [phone] Junior Chavira MD Unavailable [phone] Coni Dhaliwal CNP Unavailable [phone] Anel Long NP Unavailable [phone] Angel Balbuena MD Unavailable [phone] Encounter Details Date Type Department Care Team (Late st Contact Info) Description 07/24/2024 [facility] [address] [place] [address] [address] [place] [address] Junior Chavira MD [address] [place] [address] Social History Tobacco Use Types Packs/Day Years [...] How often do you attend chur or orthodox services? 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 [address] [place] [phone] 12/23/2024 4:00 PM CDT Office Visit [facility] [address] [facility] [address] [place] [phone] Cyrus Aleman MD [address] [place] [address] 020695 01/27/2025 10:00 AM CDT Office Visit [facility] Neurology [facility] [address] [place] [address] 200 [place] [phone] Anel Long, SALES TEACHER [address] [place], [place] [address] Coni Dhaliwal, FENCE MACHINE OPERATOR [address] [facility] [address] [place], [place] [address] 04/14/2025 11:15 AM CDT Office Visit [facility] Heart [facility] [address] [facility] [address] [place] [phone] Inessa Esteves, [address] [place], [place] [address] 06/05/2025 12:30 PM CDT Office Visit [facility] Endocrinology [address] [place] [phone] Stephie Mahoney MD [address] [place] [address] 555945 11/13/2025 11:00 AM CDT Virtual Visit [facility] Endocrinology [address] [place] [phone] Stephie Mahoney MD [address] [place] [address] documented as of this encounter Visit Diagnoses Not on filedocumented in this encounter Additional Health Concerns Infection Onset Date Last Indicated Resolved Time Rule Out COVID-19 10/12/2024 10/12/2024 10/12/2024 11:31 AM FACIAL OPERATOR documented as of this encounter Care Teams Director Of Student Life Relationship Specialty [place] [address] [place] [address] PCP - General Family Practice 11/21/16 Stephie Mahoney MD [address] [place] [address] Endocrinology, Diabetes, and Metabolism 04/22/21 Federica Foster RN [address] [place] [address] Systems Administrator Diabetes Education 04/22/[address] [place] [address] Systems Administrator Nutrition 04/22/21 Stephie Mahoney MD [address] [place] [address] Assigned Endocrinology Provider 05/08/21 Olga Garcia RN Specialty Delinquent Tax Collection Assistant INTERNAL MEDICINE - ENDOCRINOLOGY, DIABETES & METABOLISM 09/29/22 Junior Chavira MD [address] [place] [address] Cardiovascular Disease 05/29/24 [place] [address] [place] [address] Assigned PCP 07/12/24 Junior Chavira MD [address] [place] 06[address] Assigned Heart and Vascular Provider 08/11/24 Coni Dhaliwal, COREY [address] [place] [address] Nurse Practitioner Psychiatry & Neurology Vascular Neurology 11/04/24 Anel Long NP [address] [place] 79[address]35 Nurse Practitioner Psychiatry & Neurology Vascular Neurology 11/04/24 Angel Balbuena MD [address] [place] [address] Assigned Heart and Vascular Surgical Provider 12/10/24 documented as of this encounter
--- OUTSIDE RECORDS SUMMARY | 2024-12-12 00:38 | XMS_ITS | Encounter Summary ---
Author Organization [facility] Address [address] [place] [address]. [place] [address] Care Team Providers Care Slip Dumper Name Role Phone Wilber Vidales MD Primary Care Provider [phone] Stephie Mahoney MD Unavailable [phone] Federica Foster RN Unavailable +[phone] Unavailable [phone] Stephie Mahoney MD Unavailable [phone] Olga Garcia RN Unavailable [phone] Junior Chavira MD Unavailable [phone] Shantel Walker MD Unavailable [phone] Junior Chavira MD Unavailable [phone] Coin Dhaliwal CNP Unavailable [phone] Anel Long NP Unavailable [phone] Angel Balbuena MD Unavailable [phone] Encounter Details Date Type Department Care Team (Late st Contact Info) Description 08/19/2024 [facility] Endocrinology Clinic [place] 790659 [facility] 3rd [place] [address] Dinah Velazquez Social History Tobacco [...] How often do you attend chur or orthodoxy services? 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 16[address] [facility] [address] [place] [address] nAel Long, CALIBRATION ENGINEER [address] [place] [address] Coni Dhaliwal, PREPLEATER [address] [place] [id number] 04/14/2025 11:15 AM CDT Office Visit [facility] Heart [facility] [address] [facility] [address] [place] [address] Inessa Esteves DO [address] [place], [place] [address] 06/05/2025 12:30 PM CDT Office Visit [facility] Endocrinology Clinic [address] [address] Stephie Mahoney MD [address] [place] [address] 848485 11/13/2025 11:00 AM CDT Virtual Visit [facility] Endocrinology Clinic [address] [phone] Stephie Mahoney MD [address] [place] [address] 850785 documented as of this encounter Visit Diagnoses Not on filedocumented in this encounter Additional Health Concerns Infection Onset Date Last Indicated Resolved Time Rule Out COVID-19 10/12/2024 10/12/2024 10/12/2024 11:31 AM TRACTOR TRAILER DRIVER documented as of this encounter Care Teams Slip Dumper Relationship Specialty [place] [address] [place] [address] PCP - General Family Practice 11/21/16 Stephie Mahoney MD [address] 292445 Endocrinology, Diabetes, and Metabolism 04/22/21 Federica Foster, RN 420 [place], [place] 264325 Cra Diabetes Education 04/22/[address] [place] [address] 965484 Cra Nutrition 04/22/21 Stephie Mahoney MD [address] [place] [address] 122495 Assigned Endocrinology Provider 05/08/21 Olga Garcia, RN Specialty Fisher Trawl Line INTERNAL MEDICINE - ENDOCRINOLOGY, DIABETES & METABOLISM 09/29/22 Junior Chavira MD [address] [place] [id number] Cardiovascular Disease 05/29/24 [place] [address] [place] [address] Assigned PCP 07/12/24 Junior Chavira MD [address] [place] [address] Assigned Heart and Vascular Provider 08/11/24 Coni Dhaliwal, PREPLEATER [address] [place] [address] Nurse Practitioner Psychiatry & Neurology Vascular Neurology 11/04/24 Anel Long NP [address] [place] [address] Nurse Practitioner Psychiatry & Neurology Vascular Neurology 11/04/24 Angel Balbuena MD 909 [facility] [place] [address] Assigned Heart and Vascular Surgical Provider 12/10/24 documented as of this encounter
--- OUTSIDE RECORDS SUMMARY | 2024-12-12 00:38 | XMS_ITS | Encounter Summary ---
Author Organization [facility] Address [address] [place] [address]. [place] [address] Care Team Providers Care Airplane First Officer Name Role Phone Wilber Vidales MD Primary Care Provider [phone] Matt Baez MD Unavailable Wilber Vidales MD Unavailable Stephie Mahoney MD Unavailable Federica Foster RN Unavailable Tova Welch RD Unavailable [phone] Stephie Mahoney MD Unavailable Olga Garcia RN Unavailable [phone] Matt Baez MD Unavailable [phone] Junior Chavira MD Unavailable [phone] Shantel Walker MD Unavailable [phone] Junior Chavira MD Unavailable [phone] Coni Dhaliwal CNP Unavailable [phone] Anel Long NP Unavailable [phone] Angel Balbuena MD Unavailable [phone] Encounter Details Date Type Department Care Team (Late st Contact Info) Description 03/10/2022 MyC Medical Advice [facility] Endocrinology Clinic [place] 8445[address] [facility] [address] 3rd [place] [address] Stephie Mahoney MD 420 [facility] 101 [place] [address] Social History Tobacco Use Types Packs/Day Years [...] How often do you attend [facility] or orthodox services? 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 Gender Identity Male 03/03/2019 9:24 PM [...] Info) Description 12/17/2024 9:30 AM CDT Lab [facility] Laboratory [address] [place] [phone] 12/23/2024 4:00 PM CDT Office Visit [facility] 6545 [facility] 450 [place] [phone] Cyrus Aleman MD [address] [place] [address] 171335 01/27/2025 10:00 AM CDT Office Visit [facility] Neurology [facility] [address] [place] [address] 200 [place] [phone] Anel Long SENIOR SUSTAINABILITY CONSULTANT [address] [place], [place] [address] Coni Dhaliwal, BUSINESS ACCOUNT SPECIALIST [address] [facility] 450 [place], [place] [address]35 04/14/2025 11:15 AM CDT Office Visit [facility] Heart [facility] [address] [facility] [address] [place] [phone] Inessa Esteves, [address] [place], [place] [address] 06/05/2025 12:30 PM CDT Office Visit [facility] Endocrinology [address] 3rd [place] [address] Stephie Mahoney MD [address] [place] [address] 101 [place], [place] 3[address] 11/13/2025 11:00 AM CDT Virtual Visit [facility] Endocrinology [address] 3rd [place] [phone] Stephie Mahoney MD [address] 784295 documented as of this encounter Visit Diagnoses Not on filedocumented in this encounter Additional Health Concerns Infection Onset Date Last Indicated Resolved Time Rule Out COVID-19 03/10/2022 03/10/2022 03/10/2022 1:37 AM CDT COVID-19 03/10/2022 03/10/2022 03/31/2022 11:3 9 PM CDT Rule Out COVID-19 10/12/2024 10/12/2024 10/12/2024 11:31 AM FINANCIAL QUANTITATIVE ANALYST documented as of this encounter Care Teams Airplane First Officer Relationship Specialty [place] [address] [place] [id number] PCP - General Family Practice 11/21/16 Matt Baez MD [address] [facility] [address] [place] [address] Assigned Heart and Vascular Provider 06/11/20 06/23/22 [place] [address] [place] [id number] Assigned PCP 01/30/21 07/11/24 Stephie Mahoney MD [address] [address] Endocrinology, Diabetes, and Metabolism 04/22/21 Federica Foster, RN 420 [place] [address] Air Brush Decorator Diabetes Education 04/22/[address] [place] [address] Air Brush Decorator Nutrition 04/22/21 Stephie Mahoney MD [address] [place] [address] 101 [place] [address] Assigned Endocrinology Provider 05/08/21 Olga Garcia RN Specialty Filament Shaper INTERNAL MEDICINE - ENDOCRINOLOGY, DIABETES & METABOLISM 09/29/22 Matt Baez MD [address] [place], [place] [id number] Assigned Heart and Vascular Provider 12/23/22 05/04/23 Junior Chavira MD [address] [place] [id number] Cardiovascular Disease 05/29/24 [place] [address] [place] [address] Assigned PCP 07/12/24 Junior Chavira MD [address] [place] [id number] Assigned Heart and Vascular Provider 08/11/24 Coni Dhaliwal, BUSINESS ACCOUNT SPECIALIST [address] [place] [address] Nurse Practitioner Psychiatry & Neurology Vascular Neurology 11/04/24 Anel Long, SENIOR SUSTAINABILITY CONSULTANT [address] [place] [address] Nurse Practitioner Psychiatry & Neurology Vascular Neurology 11/04/24 Angel Balbuena MD [address] [place] [address] Assigned Heart and Vascular Surgical Provider 12/10/24 documented as of this encounter
--- OUTSIDE RECORDS SUMMARY | 2024-12-12 00:38 | XMS_ITS | Encounter Summary ---
Author Organization [facility] Address [address] [place] [address]. [place] [address] Care Team Providers Care Hospitality Team Member Name Role Phone Wilber Vidales MD Primary Care Provider [phone] Stephie Mahoney MD Unavailable [phone] Federica Foster RN Unavailable [phone] Unavailable [phone] Stephie Mahoney MD Unavailable [phone] Olga Garcia RN Unavailable [phone] Junior Chavira MD Unavailable [phone] Shantel Walker MD Unavailable [phone] Junior Chavira MD Unavailable [phone] Coni Dhaliwal TIRE REPAIR MECHANIC Unavailable [phone] Anel oLng NP Unavailable [phone] Angel Balbuena MD Unavailable [phone] Encounter Details Date Type Department Care Team (Late st Contact Info) Description 08/04/2024 [facility] Endocrinology Clinic [place] 658979 [facility] 3rd [place] [address] Olga Garcia RN Social History [...] often do you attend chur ch or synagogue services? 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 Gender Identity Male 03/03/2019 9:24 PM CDT Sexual Orientation Straight 03/03/2019 9: 24 PM CDT documented as of this encounter Plan of Treatment Upcoming Encounters Date Type Department Care Team (Late st Contact Info) Description 12/17/2024 9:30 AM CDT [facility] [address] [place] [address] 12/23/2024 4:00 PM CDT Office Visit [facility] 6545 [facility] 450 [place] [address] Cyrus Aleman MD [address] [place] [address] 01/27/2025 10:00 AM CDT Office Visit [facility] Neurology [facility] [place] 1650 [facility] 200 [place] [phone] Anel Long, RESEARCH PROGRAMMER 6601 [place], [place] 369455 Coni Dhaliwal, TIRE REPAIR MECHANIC 6345 [facility] 450 [place], [place] 6[address]125 04/14/2025 11:15 AM CDT Office Visit [facility] Heart [facility] [address] [facility] [address] [place] [address] Inessa Esteves DO 6405 [facility] [address] [place], [place] [address] 06/05/2025 12:30 PM CDT Office Visit [facility] Endocrinology Clinic [address] [phone] Stephie Mahoney MD [address] 000315 11/13/2025 11:00 AM CDT Virtual Visit [facility] Endocrinology Clinic [address] [phone] Stephie Mahoney MD [address] 313015 documented as of this encounter Visit Diagnoses Not on filedocumented in this encounter Additional Health Concerns Infection Onset Date Last Indicated Resolved Time Rule Out COVID-19 10/12/2024 10/12/2024 10/12/2024 11:31 AM MUTUEL DEPARTMENT MANAGER documented as of this encounter Care Teams Hospitality Team Member Relationship Specialty [place] [address] [place] [address] PCP - General Family Practice 11/21/16 Stephie Mahoney MD [address] [place] [address] 080025 Endocrinology, Diabetes, and Metabolism 04/22/21 Federica Foster RN [address] [place] [address] 328185 Ward Secretary Diabetes Education 04/22/[address] [place] [address] [phone] Ward Secretary Nutrition 04/22/21 Stephie Mahoney MD [address] [place] [address] 741735 Assigned Endocrinology Provider 05/08/21 Olga Garcia, RN Specialty Commercial Census Taker INTERNAL MEDICINE - ENDOCRINOLOGY, DIABETES & METABOLISM 09/29/22 Junior Chavira MD [address] [place] [address] Cardiovascular Disease 05/29/24 [place] [address] [place] [address] Assigned PCP 07/12/24 Junior Chavira MD [address] [place] 684845 Assigned Heart and Vascular Provider 08/11/24 Coni Dhaliwal, TIRE REPAIR MECHANIC [address] [place] 989395 Nurse Practitioner Psychiatry & Neurology Vascular Neurology 11/04/24 Anel Long NP [address] [place] 497805 Nurse Practitioner Psychiatry & Neurology Vascular Neurology 11/04/24 Angel Balbuena MD [address] [place], [place] 281895 Assigned Heart and Vascular Surgical Provider 12/10/24 documented as of this encounter
--- OUTSIDE RECORDS SUMMARY | 2024-12-12 00:38 | XMS_ITS | Encounter Summary ---
Author Organization [facility] Address [address] [place] [address]. [place] [address] Care Team Providers Care Canteen Attendant Name Role Phone Wilber Vidales MD Primary Care Provider [phone] Matt Baez MD Unavailable Wilber Vidales MD Unavailable Stephie Mahoney MD Unavailable Federica Foster RN Unavailable Tova Welch RD Unavailable [phone] Stephie Mahoney MD Unavailable Olga Garcia RN Unavailable [phone] Matt Baez MD Unavailable [phone] Junior Chavira MD Unavailable [phone] Shantel Walker MD Unavailable [phone] Junior Chavira MD Unavailable [phone] Coni Dhaliwal CNP Unavailable [phone] Anel Long NP Unavailable [phone] Angel Balbuena MD Unavailable [phone] Encounter Details Date Type Department Care Team (Late st Contact Info) Description 04/17/[address] [facility] Diabetes Education [address] 3rd [place] [address] Anel Baez, RN Social History [...] How often do you attend chur or faith services? 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 Neurology [address] [place] [phone] Anel Long, CARD TAPE CONVERTER OPERATOR [address] [place] [address] Coni Dhaliwal, ASSISTANT PLANT MANAGER [address] [facility] 450 [place] 26[address]85 04/14/2025 11:15 AM CDT Office Visit [facility] Heart [facility] [address] [facility] 140 [place] [address] Inessa Esteves, [address] [place], [place] [address]45 06/05/2025 12:30 PM CDT Office Visit [facility] Endocrinology Clinic [address] [address] Stephie Mahoney MD [address] [place] [address] 125175 11/13/2025 11:00 AM CDT Virtual Visit [facility] Endocrinology Clinic [address] [address] Stephie Mahoney MD [address] [place] [address] 833965 documented as of this encounter Visit Diagnoses Not on filedocumented in this encounter Additional Health Concerns Infection Onset Date Last Indicated Resolved Time Rule Out COVID-19 10/12/2024 10/12/2024 10/12/2024 11:31 AM UPHOLSTERER ASSEMBLY LINE documented as of this encounter Care Teams Canteen Attendant Relationship Specialty [place] [address] [place] [address] PCP - General Family Practice 11/21/16 Matt Baez MD [address] [place] [address] Assigned Heart and Vascular Provider 06/11/20 06/23/22 [place] [address] [place] [address] Assigned PCP 01/30/21 07/11/24 Stephie Mahoney MD [address] [place] [address] Endocrinology, Diabetes, and Metabolism 04/22/21 Federica Foster, RN [address] [place] [address] Sap Solution Manager Consultant Diabetes Education 04/22/[address] [place] [address] Sap Solution Manager Consultant Nutrition 04/22/21 Stephie Mahoney MD [address] [place] [address] Assigned Endocrinology Provider 05/08/21 Olga Garcia RN Specialty Watch Assembly Inspector INTERNAL MEDICINE - ENDOCRINOLOGY, DIABETES & METABOLISM 09/29/22 Matt Baez MD [address] [place] [address] Assigned Heart and Vascular Provider 12/23/22 05/04/23 Junior Chavira MD [address] [place] [address]855 Cardiovascular Disease 05/29/24 [place] [address] [place] [address] Assigned PCP 07/12/24 Junior Chavira MD [address] [place] 187185 Assigned Heart and Vascular Provider 08/11/24 Coni Dhaliwal CNP [address] [place] 84[address]55 Nurse Practitioner Psychiatry & Neurology Vascular Neurology 11/04/24 Anel Long NP [address] [place], [place] 4280[address] Nurse Practitioner Psychiatry & Neurology Vascular Neurology 11/04/24 Angel Balbuena MD [address] [place], [place] [address] Assigned Heart and Vascular Surgical Provider 12/10/24 documented as of this encounter
--- OUTSIDE RECORDS SUMMARY | 2024-12-12 00:39 | XMS_ITS | Encounter Summary ---
Author Organization [facility] Address [address] [place] [address]. [place] [address] Care Team Providers Care Android Software Engineer Name Role Phone Wilber Vidales MD Primary Care Provider [phone] Matt Baez MD Unavailable Wilber Vidales MD Unavailable Stephie Mahoney MD Unavailable Federica Foster RN Unavailable Tova Welch RD Unavailable [phone] Stephie Mahoney MD Unavailable Olga Garcia RN Unavailable [phone] Matt Baez MD Unavailable [phone] Junior Chavira MD Unavailable [phone] Shantel Walker MD Unavailable [phone] Junior Chavira MD Unavailable [phone] Coni Dhaliwal CNP Unavailable [phone] Anel Long NP Unavailable [phone] Angel Balbuena MD Unavailable [phone] Encounter Details Date Type Department Care Team (Late st Contact Info) Description 05/16/2022 MyC Medical Advice [facility] Endocrinology Clinic [place] 700579 [facility] [address] 3rd [place] [address] Stephie Mahoney MD 420 [facility] 101 [place] [address] Social History Tobacco Use Types Packs/Day Years [...] week 06/27/2021 How often do you attend [facility] or pentecostal services? 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 Gender Identity Male 03/03/2019 9:24 PM CDT [...] Info) Description 12/17/2024 9:30 AM CDT Lab [facility] [address] [place] [phone] 12/23/2024 4:00 PM CDT Office Visit [facility] 6545 [facility] 450 [place] [address] Cyrus Aleman MD [address] [place] [address] 378115 01/27/2025 10:00 AM CDT Office Visit [facility] Neurology [facility] [address] [place] [address] 200 [place] [address] Anel Long, SALES PROMOTION COORDINATOR [address] [place], [place] [address] Coni Dhaliwal, FITNESS TECHNICIAN [address] [facility] 450 [place], [place] [address] 04/14/2025 11:15 AM CDT Office Visit [facility] Heart [facility] [address] [facility] [address] [place] [address] Inessa Esteves, [address] [place], [place] [address] 06/05/2025 12:30 PM CDT Office Visit [facility] Endocrinology [address] [phone] Stephie Mahoney MD [address] [place] [address] 101 [place] [address] 11/13/2025 11:00 AM CDT Virtual Visit [facility] Endocrinology [address]rd [place] [phone] Stephie Mahoney MD [address] 347095 documented as of this encounter Visit Diagnoses Not on filedocumented in this encounter Additional Health Concerns Infection Onset Date Last Indicated Resolved Time Rule Out COVID-19 10/12/2024 10/12/2024 10/12/2024 11:31 AM UMBRELLA MENDER documented as of this encounter Care Teams Android Software Engineer Relationship Specialty [place] [address] [place] [id number] PCP - General Family Practice 11/21/16 Matt Baez MD [address] [place] [id number] Assigned Heart and Vascular Provider 06/11/20 06/23/22 [place] [address] [place] [id number] Assigned PCP 01/30/21 07/11/24 Stephie Mahoney MD [address] [place] [address] 704125 Endocrinology, Diabetes, and Metabolism 04/22/21 Federica Foster, RN [address] [place] [address] 868115 Military Lawyer Diabetes Education 04/22/21 Tova Welch, RD [address] [place] [address] Military Lawyer Nutrition 04/22/21 Stephie Mahoney MD 420 [facility] 101 [place], [place] 938765 Assigned Endocrinology Provider 05/08/21 Olga Garcia, RN Specialty Production Corrugator INTERNAL MEDICINE - ENDOCRINOLOGY, DIABETES & METABOLISM 09/29/22 Matt Baez MD [address] [place], [place] [id number] Assigned Heart and Vascular Provider 12/23/22 05/04/23 Junior Chavira MD [address] [place] [id number] Cardiovascular Disease 05/29/24 [place] [address] [place] [address] Assigned PCP 07/12/24 Junior Chavira MD [address] [place] [id number] Assigned Heart and Vascular Provider 08/11/24 Coni Dhaliwal, FITNESS TECHNICIAN [address] [place] [id number] Nurse Practitioner Psychiatry & Neurology Vascular Neurology 11/04/24 Anel Long NP [address] [place] 6232[address] Nurse Practitioner Psychiatry & Neurology Vascular Neurology 11/04/24 Angel Balbuena MD [address] [place], [place] [address] Assigned Heart and Vascular Surgical Provider 12/10/24 documented as of this encounter
--- OUTSIDE RECORDS SUMMARY | 2024-12-12 00:39 | XMS_ITS | Encounter Summary ---
Author Organization [facility] Address [address] [place] [address]. [place] [address] Care Team Providers Care Magneto Specialist Name Role Phone Wilber Vidales MD Primary Care Provider [phone] Wilber Vidales MD Unavailable Matt Baez MD Unavailable [phone] Wilber Vidales MD Unavailable Wilber Vidales MD Unavailable Stephie Mahoney MD Unavailable [phone] Federica Foster RN Unavailable [phone] Unavailable [phone] Stephie Mahoney MD Unavailable [phone] Olga Garcia RN Unavailable [phone] Matt Baez MD Unavailable Junior Chavira MD Unavailable [phone] Shantel Walker MD Unavailable [phone] Junior Chavira MD Unavailable [phone] Coni Dhaliwal CNP Unavailable [phone] Anel Long NP Unavailable [phone] Angel Balbuena MD Unavailable [phone] Encounter Details Date Type Department Care Team (Late st Contact Info) Description 07/31/2019 MyC Medical Advice [facility] [[email or web address]] Cardiothoracic [address] [phone] Ej Haines MD [address] [facility] [address] [place] [address] Social History Tobacco Use Types [...] Answer Date Recorded PHQ-2 Score 0 08/27/2018 [facility] [place] [facility] - Occupational [...] CDT Legal Sex Male 3:40 AM [employer] Gender Identity Male 03/03/2019 9:24 PM CDT Sexual Orientation Straight 03/03/2019 9: 24 PM CDT documented as of this encounter Plan of Treatment Upcoming Encounters Date Type Department Care Team (Late st Contact Info) Description 12/17/2024 9:30 AM CDT Lab [facility] Laboratory [address] [place] [phone] 12/23/2024 4:00 PM CDT Office Visit [address] [phone] Cyrus Aleman MD [address] [place] [phone] 01/27/2025 10:00 AM CDT Office Visit [facility] Neurology [address] [place] [phone] Anel Long, MEDICAL BILLING SERVICE [address] [place], [place] [address] Coni Dhaliwal, COREY [address] [phone] 04/14/2025 11:15 AM CDT Office Visit [facility] Heart [facility] [address] [facility] [address] [place] [phone] LeroyreesevannesaEliazarInessasergio FunesDO [address] [place] [address] 06/05/2025 12:30 PM CDT Office Visit [facility] Endocrinology [address] [place] [phone] Stephie Mahoney MD [address] [place] [phone] 11/13/2025 11:00 AM CDT Virtual Visit [facility] Endocrinology [address] [phone] Stephie Mahoney MD [address] [place] [phone] documented as of this encounter Visit Diagnoses Not on filedocumented in this encounter Additional Health Concerns Infection Onset Date Last Indicated Resolved Time Rule Out COVID-19 03/10/2022 03/10/2022 03/10/2022 1:37 AM CDT COVID-19 03/10/2022 03/10/2022 03/31/2022 11:3 9 PM CDT Rule Out COVID-19 10/12/2024 10/12/2024 10/12/2024 11:31 AM [employer] documented as of this encounter Care Teams Magneto Specialist Relationship Specialty [place] [address] [address] PCP - General Family Practice 11/21/16 [place] [address] [address] [address] Assigned PCP 10/31/20 01/29/21 Matt Baez MD [address] [facility] [address] [place] [address] Assigned Heart and Vascular Provider 06/11/20 06/23/22 [place] [address] [place] [address] Assigned PCP 11/02/16 10/30/20 [place] [address] [place] [address] Assigned PCP 01/30/21 07/11/24 Stephie Mahoney MD [address] [place] [address] Endocrinology, Diabetes, and Metabolism 04/22/21 Federica Foster RN [address] [place] [address] D[employer] Re[employer] Operator Diabetes Education 04/22/[address] [place] [phone] Dye Reel Operator Nutrition 04/22/21 Stephie Mahoney MD [address] [place] [address] Assigned Endocrinology Provider 05/08/21 Olga Garcia RN Specialty [place] [employer] INTERNAL MEDICINE - ENDOCRINOLOGY, DIABETES & METABOLISM 09/29/22 Matt Baez MD [address] [place] [address] Assigned Heart and Vascular Provider 12/23/22 05/04/23 Junior Chavira MD [address] [place] [phone] Cardiovascular Disease 05/29/24 [place] [address] [place] [address] Assigned PCP 07/12/24 Junior Chavira MD [address] [place] [address] Assigned Heart and Vascular Provider 08/11/24 Coni Dhaliwal CNP [address] [place] [address] Nurse Practitioner Psychiatry & Neurology Vascular Neurology 11/04/24 Anel Long NP [address] [place] [address] Nurse Practitioner Psychiatry & Neurology Vascular Neurology 11/04/24 Angel Balbuena MD [address] [facility] [place], [place] [address] Assigned Heart and Vascular Surgical Provider 12/10/24 documented as of this encounter
--- NOTE | 2024-12-12 01:25 | W.PM.THH&P_ITS ---
Telehealth- H&P: HPI History of Present Illness Date Seen: 12/12/24 Chief complaint: Left hand numb, thinks stroke Narrative: Santy Glez is seen as an Interactive Telehealth visit. Santy Glez is a 63 year old male With past medical history significant for type 1 diabetes on insulin pump, hypertension, aortic valve replacement, A-fib on Eliquis, CVA with residual left-sided weakness, JEFERSON who presented to emergency department with complaints of difficulty with left hand coordination. Patient reports around 5 PM he developed strange feeling in his left hand. He says it almost felt like he was not able to control it. He says he has history of left hand weakness due to previous stroke and uses a clamp to strengthen the muscles. He says he was not able to even open it today. He says it almost feels like fingers are not cooperating. He initially noticed this around 5 PM and then decided to come in for further evaluation around midnight. He denies any slurred speech, facial droop, one-sided or both sided facial numbness or weakness, no changes in vision, no worsening weakness in the left upper or lower extremity. He says his gait is almost at the baseline. He is denying any recent illness. He is denying any fever, chills, cough or bringing up any phlegm. He denies any chest pain, abdominal pain, nausea or vomiting. Denies any urinary symptoms. Denies any new shortness of breath. Review of system is essentially otherwise negative. He does admit to drinking 1 alcoholic drink however not on daily basis. He does have left hand tremor which have been worse since his stroke with left-sided weakness. Workup in the emergency department showed unremarkable CBC unremarkable, sodium 138, potassium 3.9, chloride 99, bicarb 33, anion gap 6, BUN 28, creatinine 0.9. Glucose 118. CT head showed no acute intracranial hemorrhage or mass effect. ER provider discussed case with neurology and they recommended admission with MRI in am and to continue eliquis for now. [facility] Medical History (Updated 12/12/24 @ 00:47 by Shantel Melendez MD) Diabetes type 1 ?E10.9 - Type 1 diabetes mellitus without complications (ICD-10) Community acquired pneumonia of right lower lobe of lung ?J18.9 - Pneumonia, unspecified organism (ICD-10) Cerebrovascular accident (CVA) involving anterior circulation of right side ?I63.521 - Cerebral infarction due to unspecified occlusion or stenosis of right anterior cerebral artery (ICD-10) Hyponatremia ?E87.1 - Hypo-osmolality and hyponatremia (ICD-10) History of astrocytoma of brain ?Z85.841 - Personal history of malignant neoplasm of brain (ICD-10) Chronic ear infection ?H66.90 - Otitis media, unspecified, unspecified ear (ICD-10) Surgical History History of craniotomy ?Z98.890 - Other specified postprocedural states (ICD-10) Status post coronary angiogram ?Z98.890 - Other specified postprocedural states (ICD-10) Hx of appendectomy ?Z90.49 - Acquired absence of other specified parts of digestive tract (ICD- 10) Status post Mohs micrographic surgery for basal cell carcinoma (BCC) ?Z98.890 - Other specified postprocedural states (ICD-10) ?Z85.828 - Personal history of other malignant neoplasm of skin (ICD-10) Family History Father Prostate cancer Bladder cancer Social History What is your current living situation?: I presently have a place to live Problems where you live: no known problems In the past 12 months, utilities in danger of being shut off: no In past 12 months, lack of transportation kept you from medical appts, meetings, work, or getting things needed for daily living: no In the past 12 mos, have been you worried that your food would run out before you had money to buy more?: never true In the past 12 mos, the food you bought just didn't last and you didn't have money to buy more?: never true Smoking Status: Never smoker How often do you have a drink containing alcohol: never AUDIT-C Alcohol total score: 0 Non-prescribed substance use: denies use How often does anyone, including family, friends and others, physically hurt you : never How often does anyone, including family, friends and others, insult or talk down to you: fairly often How often does anyone, including family, friends and others, threaten you with harm: never How often does anyone, including family, friends and others, scream or curse at you: fairly often Health Related Social Needs: Other personal risk factors, not elsewhere classified (Z91.89) Meds Home Medications and Allergies Home Medications ?Medication ?Instructions ?Recorded ?Confirmed ?Type lamotrigine 100 mg tablet mg PO BID 03/21/22 12/08/24 History modafinil 200 mg tablet 200 mg PO DAILY 03/21/22 12/08/24 History multivitamin with iron (Daily 1 tab PO QDAY 03/21/22 12/08/24 History Multiple Vitamins with Iron tablet) apixaban 5 mg tablet (Eliquis) 5 mg PO BID 08/09/23 12/08/24 History ascorbic acid (vitamin C) 1,000 mg 1 g PO QDAY 07/02/24 12/08/24 History capsule atorvastatin 40 mg tablet 40 mg PO QHS 07/02/24 12/08/24 History blood-glucose sensor (Dexcom G7 07/02/24 12/08/24 History Sensor device) blood-glucose transmitter (Dexcom 07/02/24 12/08/24 History G6 Transmitter device) cholecalciferol (vitamin D3) 125 125 mcg PO QDAY 07/02/24 12/08/24 History mcg (5,000 unit) capsule eszopiclone 3 mg tablet 3 mg PO QPM 07/02/24 12/08/24 History ezetimibe 10 mg tablet 10 mg PO DAILY 07/02/24 12/08/24 History insulin aspart U-100 100 unit/mL 80 unit subcut DAILY 07/02/24 12/08/24 History subcutaneous solution (Novolog U-100 Insulin aspart) insulin glargine 100 unit/mL (3 20 unit subcut QAM 07/02/24 12/08/24 History mL) subcutaneous pen insulin pump cartridge,auto 07/02/24 12/08/24 History dose,BT,G6/G7 with controller subcutaneous (Omnipod 5 G6-G7 Intro Kit(Gen 5) subcutaneous cartridge and controller) lamotrigine 200 mg tablet 200 mg PO BID 07/02/24 12/08/24 History lisinopril 30 mg tablet 30 mg PO DAILY 07/02/24 12/08/24 History metformin 500 mg tablet 500 mg PO QPM 07/02/24 12/08/24 History sildenafil 100 mg tablet 100 mg PO DAILY PRN 07/02/24 12/08/24 History tizanidine 2 mg tablet 2 mg PO Q8H PRN 07/02/24 12/08/24 History zinc gluconate 50 mg tablet 50 mg PO QDAY 07/02/24 12/08/24 History metoprolol succinate 50 mg 50 mg PO BID 11/12/24 12/08/24 History tablet,extended release 24 hr Allergies Allergy/AdvReac Type Severity Reaction Status Date / Time phenytoin Allergy Severe high Verified 12/08/24 19:05 fever, rash Sulfa (Sulfonamide Allergy Mild rash Verified 12/08/24 19:05 Antibiotics) Exam Narrative Exam Narrative: Physical Exam GENERAL: ?vital signs reviewed, well developed and nourished, in no distress HEENT: pupils are equal round and reactive to light, extraocular movements are grossly within normal limits and oral mucosa is moist. NECK: Supple without lymphadenopathy or thyromegaly according to nursing staff examination observation HEART: Regular rate and rhythm, + systolic murmer LUNGS: Clear to auscultation bilaterally with good air movement throughout ABDOMEN: Observation from nurse assisted exam, abdomen appears soft, nontender, and nondistended with Positive bowel sounds noted. EXTREMITIES: + weakness on LUE and LLE per nurse assisted neuro exam. His finger to nose is slightly decreased on left side. He does have significant tremor of left hand. SKIN:? Observed warm and dry with color normal Const Vital Signs, click to edit/add: Vital Signs - 24 hr 12/11/24 23:50 12/11/24 23:56 12/12/24 00:12 Temperature 98.1 F Pulse Rate 77 Pulse Rate [Pulse Oximeter] 97 Respiratory Rate 16 Blood Pressure Blood Pressure [Right Upper Arm] 197/120 H Pulse Oximetry 96 96 97 Oxygen Delivery Method 12/12/24 00:15 12/12/24 00:17 12/12/24 00:18 Temperature Pulse Rate 75 76 78 Pulse Rate [Pulse Oximeter] Respiratory Rate 15 21 15 Blood Pressure 147/82 H Blood Pressure [Right Upper Arm] Pulse Oximetry 95 94 96 Oxygen Delivery Method 12/12/24 00:19 12/12/24 00:33 12/12/24 00:35 Temperature Pulse Rate 76 72 Pulse Rate [Pulse Oximeter] 80 Respiratory Rate 18 12 11 L Blood Pressure 155/85 H Blood Pressure [Right Upper Arm] 147/82 H Pulse Oximetry 93 92 96 Oxygen Delivery Method Room Air 12/12/24 00:45 12/12/24 00:47 Temperature Pulse Rate 79 75 Pulse Rate [Pulse Oximeter] Respiratory Rate 18 19 Blood Pressure 160/83 H Blood Pressure [Right Upper Arm] Pulse Oximetry 93 91 Oxygen Delivery Method Hospitalist - H&P: Result Labs Labs: Short CBC 12/12/24 Range/Units 00:00 WBC 5.69 (4.50-11.00) K/uL Hgb 14.2 (13.5-17.5) gm/dL Hct 42.3 (37.0-53.0) % Plt Count 217 (140-440) K/uL BMP 12/11/24 23:53 Sodium 138 Potassium 3.9 Chloride 99 Carbon Dioxide 33 H BUN 28 Creatinine 0.9 Glucose 118 H Calcium 9.1 Liver Function 12/11/24 Range/Units 23:53 Total Bilirubin 0.7 (0.1-1.5) mg/dL AST 35 (12-35) U/L ALT 43 (4-50) U/L Alkaline Phosphatase 130 (40-150) U/L Albumin 4.4 (3.3-5.0) g/dL Assessment and Plan Assessment and plan (1) Acute CVA (cerebrovascular accident): Status: Acute (2) Anticoagulated by anticoagulation treatment: Problem comment: Eliquis Status: Acute (3) History of aortic valve replacement: Problem comment: Anticoagulated on Eliquis. Valve replaced 2019 at [facility]. 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 Status: Chronic Plan Pt is 63 y/o M with h/o AFib on eliquis, Aortic valve replacement, previous CVA, JEFERSON, Type 1 DM who has baseline left sided weakness from CVA earlier this year, now presenting with difficulty co ordinating with left hand. # Left hand numbness/weakness or difficulty with co ordination. - CT head and CTA head negative in ED. - pt outside tPA window at presentation - per neurology, obtain MRI and ok to cont with eliquis. - cont with cardiac monitoring and neuro checks. # type 1 DM - pt can continue home insulin pump - cont with serial blood sugar checks - diabetic diet # Recent PNeumonia in 10/2024 s/p chest tube- removed # h/o Aortic Valve replacement # Afib with RVR - cont with eliquis. Total Time Spent Total Time Spent: 60 minutes Telehealth: Statement Statement Telehealth Visit: Today's History and Physical is provided via interactive telehealth by Ashlee Carl MD.? Patient is located at [facility].? Provider is located at [facility].? Nursing staff assisted with the patient's exam. The visit being done today meets criteria for a telehealth visit and the patient or patient?s parent/guardian is aware the visit is a telehealth visit. Camera Start Time: 01:26 Camera End Time: 01:44
--- NOTE | 2024-12-12 02:28 | CRLHL7_ITS ---
For Patients: As a result of the Century Cures Act, medical imaging exams and procedure reports are released immediately into your electronic medical record. You may view this report before your referring provider. If you have questions, please contact your health care provider. Indication: CVA. Technique: Multiplanar, multisequence MRI of the brain was performed without intravenous contrast. Comparison: CT head 12/11/2024 and 10/23/2024. CTA head 12/11/2024. Findings: Remote postsurgical changes of right frontal craniotomy. There is underlying encephalomalacia and gliosis noted throughout the right frontal lobe. Internal hemosiderin deposition throughout the brain parenchyma, most notably the left frontal lobe. Scattered foci of chronic microhemorrhage within the left There is no restricted diffusion. No intracranial hemorrhage. Stable ex vacuo dilatation of the frontal horn of the right lateral ventricle. The 4th ventricle appears midline. The basal cisterns appear patent. No abnormal extra-axial fluid collection identified. Mild parenchymal volume loss. Scattered T2 FLAIR hyperintense foci within the subcortical and periventricular white matter, favored to represent chronic ischemic microvascular disease. Small chronic lacunar infarct right posterior cerebellum. Small chronic lacunar infarct left mariano. Attenuation of the left vertebral artery flow void, related to physiologic non dominant/hyperplasia. Both globes are preserved. Impression: 1. No acute intracranial process. 2. Remote right frontal craniotomy with underlying large area of encephalomalacia, gliosis and hemosiderin deposition. 3. Moderate chronic ischemic microvascular disease. 4. Small chronic lacunar infarcts right posterior cerebellum and left mariano. Dictated by Gonzalez Flaherty MD @ 12/12/2024 12:12:24 PM (Electronically Signed)
--- NOTE | 2024-12-12 06:06 | PC.NURSE ---
Pt arrived from ED, admission completed. Pt Left side with weakness since stroke pt reports having in September of this year. When asked if the weakness is the same, more or less than prior to this event pt reports same except for L hand. Pt denies chest pain, headache and sob. slept remainder of night. Pt refused lipitor, states i take enough medicine and also informed RN hes already taking a medicine for his cholesterol
[2024-12-12 08:03] LABS: Cholesterol* 178 mg/dL (90-199); HDL Cholesterol* 59 mg/dL (>=40); LDL Cholesterol Calculated 103 mg/dL (<100); Triglycerides* 79 mg/dL (40-149)
[2024-12-12] MEDS: APIXABAN 5 MG TABLET PO (09:56)
[2024-12-12] MEDS: SODIUM CHLORIDE 0.9 % (FLUSH) 10 ML SYRINGE 5 ML IVF (09:56)
[2024-12-12] MEDS: lamoTRIgine 100 MG TABLET 300 MG PO (10:34)
--- NOTE | 2024-12-12 11:27 | PM.DS1 ---
DS: Providers Provider Date Seen: 12/12/24 Date of admission: 12/12/24 00:52 Primary care physician: Sakina Kahn CNP Admitting Clinician: Ashlee Carl MD Consults: 12/12/24 01:52 Consult to Director Of Professional Services [CONS] Routine Comment: Reason for Consult:: Social Service Consult 12/12/24 07:31 Consult to Occupational Therapy [CONS] Routine Comment: Reason(s) for OT Consult:: Evaluate and Treat Any Restrictions?:: No Restrictions Consult to Physical Therapy [CONS] Routine Comment: Reason(s) for PT Consult:: Evaluate and Treat Any Restrictions?:: No Restrictions Attending Physician on discharge: MARIE Becerril, ROHITH Date of Discharge: 12/12/24 DS: Diagnosis Discharge Diagnosis (1) Acute CVA (cerebrovascular accident): Status: Ruled-out Problem details: Imaging without evidence of acute CVA during this hospital stay. Neurology questions change in seizure activity CT head shows no acute intracranial hemorrhage or mass effect. CTA head/neck shows no cerebral aneurysm or large vessel occlusion and patent cervical vasculature. When compared to previous October 2024, no interval change noted MRI brain shows no acute intracranial findings Echocardiogram Admitted overnight for telemetry, neuro checks, vital signs Reviewed with tele neurology, recommending staring aspirin 81mg daily, outpatient Neurology follow up with EEG Have recommended that patient stay with family while is out of town Resume outpatient therapies NO DRIVING UNTIL FURTHER OUTPATIENT EVALUATION (2) Type 1 diabetes: Status: Chronic Problem details: Most recent A1c 7.8, previously 7 Continue use of home pump, glucose checks ACHS, hold metformin Followed by Endocrinology (3) Paroxysmal atrial fibrillation: Status: Chronic Problem details: Continue apixaban and metoprolol for rate control (4) Anticoagulated by anticoagulation treatment: Status: Acute Problem details: Apixaban (5) History of aortic valve replacement: Status: Chronic Problem details: Anticoagulated on Eliquis. Valve replaced [address] [facility]. 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 Recommending outpatient Neurology follow-up with EEG. No recommendation for change in medications at this time, unable to obtain in house Lamictal levels. NO DRIVING (7) Benign essential hypertension: Status: Chronic Problem details: Holding lisinopril to allow for permissive hypertension, treat if SBP >220. Okay to resume on discharge (8) Hyperlipidemia: Status: Acute Problem details: Continue statin Lipids: Cholesterol 178, LDL 103, HDL 59 (9) Cerebrovascular accident (CVA) involving anterior circulation of right side: Status: Chronic Problem details: History of: 10/12/24 presented to the ER with fall, left-sided weakness and hypoxia. Diagnosed with a possible right ischemic stroke of frontal lobe. Currently in outpatient therapies (10) History of astrocytoma of brain: Status: Acute Problem details: History of brain astrocytoma status post resection 1998 and 2004 DS: Summary Hospital Course Hospital Course: Course of care and details as noted above. Needs outpatient follow-up with Neurology, EEG. Start aspirin 81 mg daily, continue lamotrigine. Remainder of chronic medical comorbidities were monitored and managed with home medications. Status at Discharge Functional status at discharge: independent ambulation Overall status at discharge: patient is progressing back to baseline Time Spent with Patient Time attestation: Total time spent providing and/or coordinating discharge services: Time spent: Greater than 30 minutes Exam Narrative: Exam Narrative: PHYSICAL EXAM General: Pleasant, conversant, NAD Cardiovascular: RRR Pulmonary: No dyspnea Neurological: Alert, answering questions appropriately, left upper lower extremity deficits, decreased coordination and strength Skin: Warm, dry. Const: Vital Signs, click to edit/add: Vital Signs - 24 hr 12/11/24 23:50 12/11/24 23:56 12/12/24 00:12 Temperature 98.1 F Pulse Rate 77 Pulse Rate [Pulse Oximeter] 97 Respiratory Rate 16 Blood Pressure Blood Pressure [Le ft Arm] Blood Pressure [Ri ght Upper Arm] 197/120 H Pulse Oximetry 96 96 97 Oxygen Delivery Me thod 12/12/24 00:15 12/12/24 00:17 12/12/24 00:18 Temperature Pulse Rate 75 76 78 Pulse Rate [Pulse Oximeter] Respiratory Rate 15 21 15 Blood Pressure 147/82 H Blood Pressure [Le ft Arm] Blood Pressure [Ri ght Upper Arm] Pulse Oximetry 95 94 96 Oxygen Delivery Me thod 12/12/24 00:19 12/12/24 00:33 12/12/24 00:35 Temperature Pulse Rate 76 72 Pulse Rate [Pulse Oximeter] 80 Respiratory Rate 18 12 11 L Blood Pressure 155/85 H Blood Pressure [Le ft Arm] Blood Pressure [Ri ght Upper Arm] 147/82 H Pulse Oximetry 93 92 96 Oxygen Delivery Me thod Room Air 12/12/24 00:45 12/12/24 00:47 12/12/24 01:05 Temperature 98.2 F Pulse Rate 79 75 Pulse Rate [Pulse Oximeter] 73 Respiratory Rate 18 19 16 Blood Pressure 160/83 H Blood Pressure [Le ft Arm] 157/89 H Blood Pressure [Ri ght Upper Arm] Pulse Oximetry 93 91 96 Oxygen Delivery Me thod Room Air 12/12/24 01:44 12/12/24 02:54 12/12/24 07:00 Temperature Pulse Rate 74 Pulse Rate [Pulse Oximeter] 73 78 Respiratory Rate Blood Pressure Blood Pressure [Le ft Arm] Blood Pressure [Ri ght Upper Arm] Pulse Oximetry Oxygen Delivery Me thod 12/12/24 07:00 12/12/24 09:28 Temperature 98.1 F Pulse Rate 77 Pulse Rate [Pulse Oximeter] 78 Respiratory Rate 16 Blood Pressure Blood Pressure [Le ft Arm] 152/90 H Blood Pressure [Ri ght Upper Arm] Pulse Oximetry 97 Oxygen Delivery Me thod Room Air DS: Data Data Completed and Pending Labs on day of discharge: Labs from last 24 hours 12/12/24 12/12/24 12/12/24 07:32 00:02 00:00 WBC 5.69 RBC 4.79 Hgb 14.2 Hct 42.3 MCV 88 MCH 30 MCHC 34 RDW Coeff of [place] 13.6 Plt Count 217 Neut % (Auto) 37.5 L Lymph % (Auto) 38.8 [place] % (Auto) 7.0 Eos % (Auto) 15.5 H Baso % (Auto) 0.7 Neut # (Auto) 2.10 Lymph # (Auto) 2.21 [place] # (Auto) 0.40 Eos # (Auto) 0.90 H Baso # (Auto) 0.04 Abs Immat Gran (auto) 0.03 Imm/Tot Granulo (auto) 0.5 INR APTT Sodium Potassium Chloride Carbon Dioxide Anion Gap BUN Creatinine Estimated Creat Clear Estimated GFR Glucose Calcium Magnesium Total Bilirubin AST ALT Alkaline Phosphatase Total Protein Albumin Triglycerides Cholesterol LDL Cholesterol, Calc HDL Cholesterol Lab Acknowledgement Test Added POC Glucose 112 12/11/24 23:53 WBC RBC Hgb Hct MCV MCH MCHC RDW Coeff of [place] Plt Count Neut % (Auto) Lymph % (Auto) [place] % (Auto) Eos % (Auto) Baso % (Auto) Neut # (Auto) Lymph # (Auto) [place] # (Auto) Eos # (Auto) Baso # (Auto) Abs Immat Gran (auto) Imm/Tot Granulo (auto) INR 0.99 APTT 29 Sodium 138 Potassium 3.9 Chloride 99 Carbon Dioxide 33 H Anion Gap 6 L BUN 28 Creatinine 0.9 Estimated Creat Clear 80.10 Estimated GFR 97 Glucose 118 H Calcium 9.1 Magnesium 2.0 Total Bilirubin 0.7 AST 35 ALT 43 Alkaline Phosphatase 130 Total Protein 6.8 Albumin 4.4 Triglycerides 79 Cholesterol 178 LDL Cholesterol, Calc 103 H HDL Cholesterol 59 Lab Acknowledgement POC Glucose Imaging CT scan - head: Attestation: I have reviewed the pertinent imaging results. Radiologist's impression: Postsurgical changes of right frontal craniotomy with chronic encephalomalacia and gliosis in the right frontal lobe. Ex vacuo dilatation of the right lateral ventricle frontal horn. Mild generalized cerebral volume loss. [place]-white differentiation is otherwise maintained. Low-attenuation changes in the left frontal lobe white matter, nonspecific may relate to posttreatment changes or chronic small vessel ischemic disease. No hydrocephalus. Basilar cisterns are patent. No evidence of intracranial hemorrhage, extra-axial collection, or midline shift. Atherosclerotic calcifications of the cavernous carotids and carotid siphons. The visualized paranasal sinuses and mastoid air cells demonstrate no acute or significant findings. The visualized orbits are grossly unremarkable. No skull fractures. IMPRESSION: No acute intracranial hemorrhage or mass effect. CTA head: Attestation: I have reviewed the pertinent imaging results. Radiologist's impression: There is no cerebral aneurysm or large vessel occlusion. There is intracranial atherosclerosis with multifocal moderate to severe narrowing in the right vertebral and basilar arteries. The right internal carotid artery is normal. The right middle cerebral artery and its branches are normal. The right anterior cerebral artery and its branches are normal. The left internal carotid artery is normal. The left middle cerebral artery and its branches are normal. The left anterior cerebral artery and its branches are normal. The anterior communicating artery is well visualized and appears normal. The left vertebral artery terminates in the PICA. The right vertebral artery is dominant. The right posterior cerebral artery is normal. The left posterior cerebral artery is normal. The visualized venous structures are patent. IMPRESSION: 1. No cerebral aneurysm or large vessel occlusion. 2. Intracranial atherosclerosis with multifocal moderate to severe narrowing in the right vertebral and basilar arteries. Please note that all CT scans at this facility use dose modulation, iterative reconstruction, and/or weight-based dosing when appropriate to reduce radiation dose to as low as reasonably achievable. Dictated by Kingsley Durán MD @ 12/12/2024 8:14:38 AM ----- ADDENDUM ----- Comparison is made with CTA dated 10/27/2024, there has been no interval change in the multifocal stenosis in the right vertebral and basilar arteries. Dictated by Kingsley Durán MD @ Dec 12 2024 9:58AM (Electronically Signed) For Patients: As a result of the Cures Act, medical imaging exams and procedure reports are released immediately into your electronic medical record. You may view this report before your referring provider. If you have questions, please contact your health care provider. DATE: 12/11/2024 CLINICAL HISTORY: Patient with focal neurological deficits. TECHNIQUE: Standard helical CT image acquisition through the intracranial circulation following intravenous administration of contrast material with bolus tracking. 2D and 3D MIP images for post-processing were performed and interpreted on an independent workstation and 3D images were permanently archived. COMPARISON: CT same day. FINDINGS: There is no cerebral aneurysm or large vessel occlusion. There is intracranial atherosclerosis with multifocal moderate to severe narrowing in the right vertebral and basilar arteries. The right internal carotid artery is normal. The right middle cerebral artery and its branches are normal. The right anterior cerebral artery and its branches are normal. The left internal carotid artery is normal. The left middle cerebral artery and its branches are normal. The left anterior cerebral artery and its branches are normal. The anterior communicating artery is well visualized and appears normal. The left vertebral artery terminates in the PICA. The right vertebral artery is dominant. The right posterior cerebral artery is normal. The left posterior cerebral artery is normal. The visualized venous structures are patent. IMPRESSION: 1. No cerebral aneurysm or large vessel occlusion. 2. Intracranial atherosclerosis with multifocal moderate to severe narrowing in the right vertebral and basilar arteries. CTA neck: Attestation: I have reviewed the pertinent imaging results. Radiologist's impression: The origins of the great vessels from the aortic arch are patent. The origin of the right vertebral artery is patent. The origin of the left vertebral artery is patent. The common carotid arteries are patent. There is plaque without stenosis at the origin of the right internal carotid artery. There is plaque without stenosis at the origin of the left internal carotid artery. The rest of the cervical segments of the internal carotid arteries are patent up to the skull base. The right vertebral artery is dominant. The cervical segments of the vertebral arteries are patent up to the skull base. The visualized lung apices are unremarkable. The thyroid gland is unremarkable. The soft tissues of the neck are unremarkable. There are degenerative changes in the cervical spine. IMPRESSION: Patent cervical vasculature. Please note that all CT scans at this facility use dose modulation, iterative reconstruction, and/or weight-based dosing when appropriate to reduce radiation dose to as low as reasonably achievable. Dictated by Kingsley Durán MD @ 12/12/2024 8:11:38 AM ----- ADDENDUM ----- Comparison is made with CTA dated 10/27/2024, there has been no interval change. Dictated by Kingsley Durán MD @ Dec 12 2024 9:57AM (Electronically Signed) For Patients: As a result of the Cures Act, medical imaging exams and procedure reports are released immediately into your electronic medical record. You may view this report before your referring provider. If you have questions, please contact your health care provider. DATE: 12/11/2024 CLINICAL HISTORY: Patient with focal neurological deficits. TECHNIQUE: Standard helical CT image acquisition of the neck up to the skull base after bolus intravenous contrast enhancement. 2D and 3D MIP images for post-processing were performed and interpreted on an independent workstation and 3D images were permanently archived. COMPARISON: CT same day. FINDINGS: The origins of the great vessels from the aortic arch are patent. The origin of the right vertebral artery is patent. The origin of the left vertebral artery is patent. The common carotid arteries are patent. There is plaque without stenosis at the origin of the right internal carotid artery. There is plaque without stenosis at the origin of the left internal carotid artery. The rest of the cervical segments of the internal carotid arteries are patent up to the skull base. The right vertebral artery is dominant. The cervical segments of the vertebral arteries are patent up to the skull base. The visualized lung apices are unremarkable. The thyroid gland is unremarkable. The soft tissues of the neck are unremarkable. There are degenerative changes in the cervical spine. IMPRESSION: Patent cervical vasculature. Echo: Attestation: I have reviewed the pertinent imaging results. Radiologist's impression: Final Impressions: 1. Normal left ventricular size, normal wall thickness, hyperdynamic global systolic function, calculated EF of 72 %. 2. Right ventricular cavity size is mildly enlarged, global systolic RV function is normal. 3. Moderately enlarged left atrium. 4. The aortic valve is unknown bioprosthesis AVR, mild to moderate stenosis and no regurgitation. The aortic valve peak velocity is 3.3 m/s, the peak gradient is 44 mmHg, and the mean gradient is 33 mmHg. The aortic valve area is 1.80 cm?? with a dimensionless index of 0.54. The stroke volume index is 66.3 ml/m??. 5. Negative bubble study. No evidence of atrial shunt by color doppler interrogation. MRI - head: Attestation: I have reviewed the pertinent imaging results. Radiologist's impression: Remote postsurgical changes of right frontal craniotomy. There is underlying encephalomalacia and gliosis noted throughout the right frontal lobe. Internal hemosiderin deposition throughout the brain parenchyma, most notably the left frontal lobe. Scattered foci of chronic microhemorrhage within the left There is no restricted diffusion. No intracranial hemorrhage. Stable ex vacuo dilatation of the frontal horn of the right lateral ventricle. The 4th ventricle appears midline. The basal cisterns appear patent. No abnormal extra-axial fluid collection identified. Mild parenchymal volume loss. Scattered T2 FLAIR hyperintense foci within the subcortical and periventricular white matter, favored to represent chronic ischemic microvascular disease. Small chronic lacunar infarct right posterior cerebellum. Small chronic lacunar infarct left mariano. Attenuation of the left vertebral artery flow void, related to physiologic non dominant/hyperplasia. Both globes are preserved. Impression: 1. No acute intracranial process. 2. Remote right frontal craniotomy with underlying large area of encephalomalacia, gliosis and hemosiderin deposition. 3. Moderate chronic ischemic microvascular disease. 4. Small chronic lacunar infarcts right posterior cerebellum and left mariano. Discharge Plan Discharge Disposition: Home, Self-Care Date of Admission: 12/12/24 00:52 Attending Provider on Discharge: Amira Ramos Primary Care Provider: Sakina Kahn Condition: Stable Anticipated Discharge Date/Time: 12/12/24 11:24 Discharge Medications: New aspirin 81 mg tablet,chewable 81 mg PO DAILY Qty: 30 0RF Continued lamotrigine 100 mg tablet 100 mg PO BID metoprolol succinate 50 mg tablet extended release 24 hr 25 mg PO QAM Rx Instructions: PATIENT HAS BEEN TAKING 25 MG EVERY MORNING PER MED REC CONVERSATION ON 12/12/24. Eliquis 5 mg tablet 5 mg PO BID lisinopril 30 mg tablet 30 mg PO DAILY ezetimibe 10 mg tablet 10 mg PO DAILY insulin aspart U-100 [Novolog U-100 Insulin aspart] 100 unit/mL solution 80 unit subcut DAILY lamotrigine 200 mg tablet 200 mg PO BID metformin 500 mg tablet 500 mg PO QPM eszopiclone 3 mg tablet 3 mg PO QPM sildenafil 100 mg tablet 100 mg PO DAILY PRN atorvastatin 40 mg tablet 40 mg PO QHS cholecalciferol (vitamin D3) 125 mcg (5,000 unit) capsule 125 mcg PO QDAY (DME) Dexcom G6 Transmitter Device See Rx Instructions .Route Rx Instructions: As directed (DME) Dexcom G7 Sensor Device See Rx Instructions .Route Rx Instructions: As directed (DME) Omnipod 5 G6-G7 Intro Kt(Gen5) Cartridge See Rx Instructions .Route Rx Instructions: As directed ascorbic acid (vitamin C) 1,000 mg capsule 1 g PO QDAY zinc gluconate 50 mg tablet 50 mg PO QDAY tizanidine 2 mg tablet 4 mg PO Q8H PRN (Reason: muscle spasticity) Qty: 20 0RF hydrocodone-acetaminophen 5-325 mg tablet 1 tab PO Q6H PRN (Reason: pain) Qty: 6 0RF magnesium oxide 400 mg (241.3 mg magnesium) tablet 400 mg PO DAILY Discharge Orders: Discharge Order (Routine); Ordered 12/12/24 Ordered By: Amira Ramos Additional Instructions: IT IS RECOMMENDED SOMEONE STAY WITH YOU FOR THE NEXT [address] UNTIL FURTHER OUTPATIENT EVALUATION YOU WILL NEED OUTPATIENT NEUROLOGY FOLLOW UP FOR AN EEG Activity Level: No Restrictions Activity Detail: CONTINUE OUTPATIENT PT/OT Discharge Diet: Diabetic Follow Up Appointments: Sakina Kahn CNP [Primary Care Provider] - (Post hospital follow up 3-5 days) [facility]: [facility] Info Inst[facility]
[2024-12-12] MEDS: METOPROLOL SUCCINATE (XL) 25 MG TAB PO (12:05)
[2024-12-12] MEDS: EZETIMIBE 10 MG TABLET PO (12:05)
--- NOTE | 2024-12-12 13:23 | PC.SOCIAL ---
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 No social work needs were identified and the pt will be discharging home.
--- NOTE | 2024-12-12 14:22 | PC.NURSE ---
DC education given to pt verbally and in writing. Pt instructed no driving until follow up with PCP. Pt states friend is picking up pt at front entry. IV DC'd, cath tip intact. DC @ [id number].
== END 2024-12-12 14:21 | disposition home or self-care (01) ==
LOC: ED 12-12 00:47 → MEDSURG 12-12 00:53
PROVIDERS: Physician Assistant; Admitting Provider Internal Medicine; Emergency Provider Emergency Medicine; PCP Nurse Practitioner Family; Visit Provider Internal Medicine
DX: I67.2 Cerebral atherosclerosis (principal); G40.509 Epileptic seizures related to external causes, not intractable, without status epilepticus; R53.1 Weakness; Z79.01 Long term (current) use of anticoagulants; Z95.2 Presence of prosthetic heart valve; I48.0 Paroxysmal atrial fibrillation; I10 Essential (primary) hypertension; E10.9 Type 1 diabetes mellitus without complications; E78.2 Mixed hyperlipidemia; G47.33 Obstructive sleep apnea (adult) (pediatric); Z85.841 Personal history of malignant neoplasm of brain; Z79.4 Long term (current) use of insulin; Z79.84 Long term (current) use of oral hypoglycemic drugs
CPT/HCPCS: 36415; 70450; 70496; 70498; 70551; 80053; 80061; 82947; 82962; 83735; 85025; 85610; 85730; 93005; 93306; 94761; 97161; 97165; 99215; 99284; 99285; 99291; A9270; G0378; Q9967

== ENCOUNTER 2025-01-15 08:30 | Outpatient (RCR) | payer BC, SELFPAY ==
--- NOTE | 2024-11-24 15:59 | OT.OPOE ---
OT Outpatient Ortho Eval OT Outpatient Ortho Eval* Start: 11/24/24 13:38 Freq: Status: Active Protocol: Document 11/24/24 13:38 KATEY (Rec: 11/24/24 15:57 KATEY [id number]) E-signed By Osiris Garcia OTR/L, CLT OT OP Ortho Eval Details Complexity Complexity High Insurance Information Insurance Information [employer] Outpatient History/Precautions Current Condition/Medical Diagnosis Referring Provider Sakina Kahn APRN, [facility] Medical Diagnoses I63.521 for Cerebral infarction due to unspecified occlusion or stenosis of right anterior cerebral artery Treatment Diagnosis R25.1: Tremor, unspecified R27.8: Other lack of coordination R53.83: Other fatigue Other Precautions Patient has many follow up appointments: He has physical medicine and rehabilitation on December 23, repeat CT on November 28, cardiology with Dr. Esteves next week, neurology follow-up on January 27, pulmonary follow-up in the next several weeks. Also has his endocrine appointment in 1 week. is coordinating all of his care. She is a registered nurse at the [employer] in [place]. Paperwork will be completed for both the patient and his . She currently has been on a leave of absence due to all of his health issues. Hemoglobin A1c is up to 7. 8. Patient was on an insulin drip when in the hospital. Patient is back home and eating foods that he prefers and they are monitoring his blood glucose levels. Will be recheck in 3 months. Other Conditions Community acquired pneumonia of right lower lobe of lung ( Acute) 10/12/2024 right lower lobe pneumonia, right pleural effusion. Thoracentesis along with chest tube placement. Chest tube removed on 10/24/2024 . J18.9 - Pneumonia, unspecified organism (ICD-10) Cerebrovascular accident (CVA) involving anterior circulation of right side ( Acute) 10/12/24 presented to the ER with fall, left-sided weakness and hypoxia. Diagnosed with a possible right ischemic stroke of frontal lobe I63.521 - Cerebral infarction due to unspecified occlusion or stenosis of right anterior cerebral artery (ICD-10) Hyponatremia (Acute) E87.1 - Hypo-osmolality and hyponatremia (ICD-10) Anticoagulated by anticoagulation treatment ( Acute) Eliquis Hyperlipidemia (Acute) E78.5 - Hyperlipidemia, unspecified ( ICD-10) Chronic lower back pain ( Chronic) M54.50 - Low back pain, unspecified (ICD-10) G89 .29 - Other chronic pain (ICD- 10) Bilateral carotid artery stenosis (Chronic) I65.23 - Occlusion and stenosis of bilateral carotid arteries ( ICD-10) Obstructive sleep apnea ( Chronic) G47.33 - Obstructive sleep apnea (adult) (pediatric ) (ICD-10) History of aortic valve replacement (Chronic) Anticoagulated on Eliquis. Valve replaced 2019 at [facility]. 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 > 50 % change in his presentation/symptoms Medication List: apixaban (Eliquis) 5 mg PO BID ascorbic acid (vitamin C) 1 g PO QDAY atorvastatin 40 mg PO QHS blood-glucose sensor (Dexcom G7 Sensor device) As directed blood-glucose transmitter ( Dexcom G6 Transmitter device) As directed cholecalciferol (vitamin D3) 125 mcg PO QDAY eszopiclone 3 mg PO QPM ezetimibe 10 mg PO DAILY insulin aspart U-100 (Novolog U-100 Insulin aspart) 80 units subcut DAILY insulin glargine 20 units subcut QAM insulin facility maintenance helper cart,aut,G6/7,cntr (Omnipod 5 G6-G7 Intro Kit( Gen 5) subcutaneous cartridge and controller) As directed lamotrigine mg PO BID lamotrigine 200 mg PO BID lisinopril 30 mg PO DAILY metformin 500 mg PO QPM metoprolol succinate ER 50 mg PO BID modafinil 200 mg PO DAILY multivitamin with iron (Daily Multiple Vitamins with Iron tablet) 1 tab PO QDAY sildenafil 100 mg PO DAILY PRN tizanidine 2 mg PO Q8H PRN zinc gluconate 50 mg PO QDAY Medical/Functional History Medical History Reviewed Yes Prior Level of Function/Mobility Normal Routine: Patient would wake up around 6:15 am eat breakfast, work until 11am, eat lunch-then walk the dogs ( has 2), then begin work again until 4pm (maybe longer during the busy seasons of work). 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 For a hobby, patient enjoys fishing (he has a fishing boat -in [place]) and also enjoys smoking meat. : Baylee, adult children 1 daughter and a son. Last eye exam on 06/27/24- patient reports no change in vision post stroke. Patient drove to the apt today. Reports that he felt safe with driving. Hospital discharge paperwork does not mention anything about driving , but it is typical practice that after a stroke to have the patient first cleared to drive by the Neurologist at f /u apt. 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 Patient has a complex medical history including several brain surgeries, type 1 diabetes, a obstructive sleep apnea, paroxysmal atrial fib, aortic valve replacement, hypertension and most recently right lower lobe pneumonia with chest tube placement along with right ischemic stroke of frontal lobe. Patient presented to [facility] on 10/12/2024 with a fall, left-sided weakness and hypoxia. Patient had recently been diagnosed with influenza and a CT of his chest showed a right lower lobe pneumonia, right pleural effusion and multiple liver lesions. Patient was started on antibiotics and subsequently underwent thoracentesis. A chest tube was placed on 10/16 and removed on 10/24/2024. Patient was diagnosed with atrial fibrillation with RVR and given an amiodarone infusion. Patient has had consult with Neurology due to acute ischemic stroke of right frontal lobe due to cardioembolism despite anticoagulation. Patient was recently discharged from the acute rehabilitation unit at the [facility] (10/29-11/04/24). He has struggled with hyponatremia with a sodium as low as 127. He was sent home with his with PT, OT and speech coming to the home. Upon this visit with his PCP, he and his requested a referral to PT, OT and speech at an outpatient rehab center. He continues to have left-sided weakness and is walking without a device ( mildly unsteady)-was using a cane last week and the week prior to that his was assisting him with a gait belt at all times. Patient reports 50% improvement in endurance and strength in the 20 days since returning home. Per patient report, he has a dx of Essential Tremor (impacting the L non-dominant) hand which has gotten worse since his stroke. Therapist is not seeing a dx of Essential Tremor in his chart but medical records have transferred from different health care organizations with him now having a new PCP ( Sakina Kahn, [facility]). Pain Assessment Pain Pain Yes Pain Comments Low back, left side 02/26 - chronic Range of Motion and Strength Shoulder Range of Motion and Strength Shoulder Range of Motion and Strength Bilateral AROM is WNL with R UE stronger than the L Elbow/Forearm Range of Motion and Strength Elbow/Forearm Range of Motion and Bilateral AROM is WNL with R Strength UE stronger than the L Wrist Range of Motion and Strength Wrist Range of Motion and Strength Bilateral AROM is WNL with R UE stronger than the L Hand Pinch/Lamination Assembler Strength Hand Pinch/Lamination Assembler Strength Hand Pinch/Lamination Assembler Strength Left Hand,Right Hand Left Hand Lamination Assembler Strength Position 1 in Elbow 70 Flexion (lbs) Lamination Assembler Strength Position 2 in Elbow 65 Extension (lbs) Lateral Pinch Strength (lbs) 20 Three Point Pinch (lbs) 14 Tip Pinch Strength (lbs) 10 Right Hand Lamination Assembler Strength Position 1 in Elbow 95 Flexion (lbs) Lamination Assembler Strength Position 2 in Elbow 89 Extension (lbs) Lateral Pinch Strength (lbs) 25 Three Point Pinch (lbs) 17 Tip Pinch Strength (lbs) 12 OT Problems Problems Problems Decreased Strength,Decreased Dexterity,Pain,Decreased Coordination,Lifting,Gripping, Pinching Problems Comments Patient is R hand dominant, but any task that is bilateral , or requires the use of his L hand is quite difficult Other Problems Opening Containers,Computer Patient Potential Good Assessment Assessment Assessment Santy is a 63-year-old male who was seen by his PCP on to follow-up after recent hospitalization. Patient has a complex medical history including several brain surgeries, type 1 diabetes, a obstructive sleep apnea, paroxysmal atrial fib, aortic valve replacement, hypertension and most recently right lower lobe pneumonia with chest tube placement along with right ischemic stroke of frontal lobe. Patient presented to [facility] on 10/12/2024 with a fall, left-sided weakness and hypoxia. Patient had recently been diagnosed with influenza and a CT of his chest showed a right lower lobe pneumonia, right pleural effusion and multiple liver lesions. Patient was started on antibiotics and subsequently underwent thoracentesis. A chest tube was placed on 10/16 and removed on 10/24/2024. Patient was diagnosed with atrial fibrillation with RVR and given an amiodarone infusion. Patient has had consult with Neurology due to acute ischemic stroke of right frontal lobe due to cardioembolism despite anticoagulation. Patient was recently discharged from the acute rehabilitation unit at the [facility] (10/29-11/04/24). He has struggled with hyponatremia with a sodium as low as 127. He was sent home with his with PT, OT and speech coming to the home. Upon this visit with his PCP, he and his requested a referral to PT, OT and speech at an outpatient rehab center. He continues to have left-sided weakness and is walking without a device ( mildly unsteady)-was using a cane last week and the week prior to that his was assisting him with a gait belt at all times. Patient reports 50% improvement in endurance and strength in the 20 days since returning home. Per patient report, he has a dx of Essential Tremor (impacting the L non-dominant) hand which has gotten worse since his stroke. Therapist is not seeing a dx of Essential Tremor in his chart but medical records have transferred from different health care organizations with him now having a new PCP ( Sakina Kahn, [facility]). PLAN: treat deficits of L UE poor coordination, impaired strength, endurance in order to lower patient's fall risk and improve overall quality of life through increased level of independence with IADL and work related tasks. Occupational Therapy Treatment Plan - OP Potential Rehabilitation Potential Good Barriers Barriers to goal attainment Pertinent co-morbidities, complexities, and conditions that may affect prognosis, intensity, frequency, and/or duration of therapy include but are not limited to: Essential Tremor on the L UE ( via patient report-could not find records of this dx) Insulin dependent Diabetic Chronic back pain Complex Medical History but patient is showing signs of motivation and willingness to participate in POC to his full capability. Set Goals Goals Set with Patient Yes Goals Goals 1. Patient to demonstrate improvement in limits of stability in forward directions as evidenced by 25% improvement in functional reach score and decrease losses of balance and falls while engaging in activities that require reaching. (on Eval 11/24/24 patient scored 8.5 inches, norms for his gender and age would be 14 inches). 2. Patient will demonstrate a lower risk for falls as evident by a lower score on the Falls Self Efficacy Scale. (Score on EVAL 54/64 points). 3. Patient will be issued and educated on BUE resistive HEP while also demonstrating 2 rep improvement on arm curl test to allow for increased independence and ease when performing IADLs and leisure activities. (8lb weight in the L arm, patient was able to do 15 reps which is below average. Average for age/ gender is 16-22 reps in 30 seconds). 4. To demonstrate improvement in overall body strength and stamina, patient will increase from 7 sit to stands in 30 seconds to >12 reps (w/o use of arms). Target Date 12 weeks Treatment Plan Treatment Plan Evaluation,Manual Therapy, Therapeutic Exercise, Therapeutic Activities,Self Care/Home Management,Education ,Neuromuscular Reeducation Expected Frequency 1-2x Week Expected Duration 12 Expected Duration Comments Vitals on EVAL, seated R UE, large cuff 130/78, HR 67 bpm, oxygen 96% on room air Blood sugar (on patient's phone reader) stated 206 Comment Summary 30 Second Chair Stand 7 ( patient falls below the norms for his gender and age) The norms for a male between the ages of 60-64 years old would be <14 Forward Reach Test: patient scored 8.5 inches, norms for his gender and age would be 14 inches. Falls Self Efficacy Scale. ( Score on EVAL 54/64 points Arm Curl Test: (8lb weight in the L arm, patient was able to do 15 reps which is below average. Average for age/ gender is 16-22 reps in 30 seconds). Certification Certification Statement I Certify That: Therapy Services Provided, Therapy Plan Established, Therapy Plan Reviewed Certification Information Clinic ID # [id number] Initial Certification Date 11/24/24 Recertification Due Date 02/22/25 Provider Signature Required Yes Provider Signature Shows Agreement With POC & Medical Necessity Physician NPI Number Write NPI# Here Physician Comment/Change Comment or Changes Physician Signature & Date Requested Please Sign/Date Here
== END 2025-05-15 23:59 | disposition home or self-care (01) ==
PROVIDERS: PCP Nurse Practitioner Family; Visit Provider Nurse Practitioner Family
DX: I63.521 Cerebral infarction due to unspecified occlusion or stenosis of right anterior cerebral artery (principal); Z51.89 Encounter for other specified aftercare
CPT/HCPCS: 97110; 97112; 97162; 97167; X5282

== ENCOUNTER 2025-07-02 08:03 | Outpatient (CLI) | payer BC, SELFPAY | END 2025-07-02 08:04 | disposition home or self-care (01) | PROVIDERS: PCP Nurse Practitioner Family; Visit Provider Nurse Practitioner Family | DX: Z12.5 Encounter for screening for malignant neoplasm of prostate (principal); E87.1 Hypo-osmolality and hyponatremia | CPT/HCPCS: 84295; G0103 ==